=== PATIENT | female | born 1990 | race African-American/Black ===

== ENCOUNTER 2016-04-11 08:46 | Observation (INO) | payer OTHER ==
--- NOTE | 2016-04-11 09:19 | PDOC ---
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 She reports swelling and fluid overloading, and she is having difficulty walking and has not been drinking much secondary to the fluid retention. She reports that 2.7 liters of fluid were taken off yesterday after dialysis, but she is now 7 kilograms over. She reports she could not obtain an extra session of dialysis today. She also states she feels like she cant catch her breath. The patient denies chest pain, headache and dizziness. The patient denies fever , chills, nausea, vomit, diarrhea and constipation. The patient denies dysuria, frequency, urgency and hematuria. Allergies: No known drug allergies Past surgical history: Myxoma removal, surgical repair of ulcer to left foot Social history: Denies smoking, ETOH, or recreational drug use. 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 <Lizett Short - Last Filed: 04/11/16 10:24> - General History Source: Patient Exam Limitations: No Limitations <Becky Alba - Last Filed: 04/14/16 09:49> - General Chief Complaint: Edema Stated Complaint: BODY ACHES, SOB/EDEMA/ESRD Time Seen by Provider: 04/11/16 09:18 Past History <Lizett Short - Last Filed: 04/11/16 10:24> - Past Medical History Anemia: Yes Diabetes: Yes Dialysis: Yes (M/W/F) Disorders: Yes (ESRD) HTN: Yes Kidney Stones: (ESRD, Dialysis Mon, W, F, Left arm Fistula) Suicide Attempt (Hx): No Seizures: Yes - Surgical History Cardiac Surgery: Yes (mixoma removed) - Immunization History Immunization Up to Date: Yes - Psycho/Social/Smoking Cessation Hx Anxiety: No Suicidal Ideation: No Smoking Status: No Smoking History: Never smoked Have you smoked in the past 12 months: No Number of Cigarettes Smoked Daily: 10 Information on smoking cessation initiated: No Hx Alcohol Use: No Drug/Substance Use Hx: No Substance Use Type: None Hx Substance Use Treatment: No <ParthBecky - Last Filed: 04/14/16 09:49> - Past Medical History Allergies/Adverse Reactions: Allergies Allergy/AdvReac Type Severity Reaction Status Date / Time No Known Drug Allergies Allergy Verified 04/11/16 08:52 Home Medications: Ambulatory Orders Diphenhydramine [Benadryl Capsule -] 50 mg PO HS 09/22/15 Sevelamer Carbonate [Renvela -] 800 mg PO TID 09/22/15 Oxycodone HCl/Acetaminophen [Percocet 5-325 mg Tablet] 1 tab PO Q6H PRN #10 tablet MDD 4 11/11/15 Amlodipine Besylate [Norvasc -] 10 mg PO DAILY 01/23/16 Clonidine HCl [Catapres -] 0.4 mg PO TID 02/29/16 Gabapentin 100 mg PO TID 03/11/16 Metoprolol Tartrate [Lopressor] 100 mg PO BID 03/21/16 Insulin Aspart [Novolog Flexpen] 3 unit SQ TID #10 ml 03/26/16 Insulin Detemir [Levemir Flextouch] 15 unit SQ AM #10 ml 03/26/16 Nystatin Powder [Nystop Powder -] 1 applic TP BID #1 applic 03/26/16 Vancomycin/0.9 % Sod Chloride [Vanco-0.9% NaCl 750 mg/250 ml] 750 mg IVPB MOWEFR 03/31/16 Review of Systems - Review of Systems Able to Perform ROS?: Yes Comments:: 04/11/16 10:28 GENERAL/CONSTITUTIONAL: No: fever, chills, weakness, loss of appetite. HEAD, EYES, EARS, NOSE AND THROAT: No: change in vision, ear pain, discharge, sore throat, throat swelling. CARDIOVASCULAR: No: chest pain, lightheadedness, palpitations, syncope RESPIRATORY: Present: (+) shortness of breath No: cough, wheezing, hemoptysis, stridor. GASTROINTESTINAL: No: nausea, vomiting, abdominal cramping, diarrhea, rectal bleeding, constipation. GENITOURINARY: No: dysuria, hematuria, frequency, urgency, flank pain. MUSCULOSKELETAL: Present: (+) swelling, (+) body ache No: back pain, neck pain, joint pain SKIN AND BREASTS: No: lesions, pallor, rash or easy bruising. NEUROLOGIC: No: headache, vertigo, paresthesias, weakness ENDOCRINE: No: unexplained weight gain or loss HEMATOLOGIC/LYMPHATIC: No: anemia, easy bleeding, swelling nodes <Lizett Short - Last Filed: 04/11/16 10:24> *Physical Exam - Vital Signs Last Vital Signs Temp Pulse Resp BP Pulse Ox 97.7 F 78 20 217/122 100 04/11/16 08:50 04/11/16 10:05 04/11/16 10:05 04/11/16 10:05 04/11/16 10:05 - Physical Exam Comments: 04/11/16 10:28 GENERAL: The patient is in no acute distress. HEAD: Normal with no signs of trauma. EYES: PERRLA, EOMI, sclera anicteric, conjunctiva clear. ENT: Ears normal, nares patent, oropharynx clear without exudates. Moist mucous membranes. NECK: Normal range of motion, supple without lymphadenopathy, JVD, or masses. LUNGS: Breath sounds equal, clear to auscultation bilaterally. No wheezes, and no crackles. HEART:Regular rate and rhythm, normal S1 and S2 without murmur, rub or gallop. ABDOMEN: Soft, nontender, normoactive bowel sounds. No guarding, no rebound. EXTREMITIES: (+) Pitting edema of the bilateral lower extremities to the knees. Normal range of motion. No clubbing or cyanosis. No erythema, or tenderness. NEUROLOGICAL: Cranial nerves II through XII grossly intact. Normal speech. No focal neurological deficits. MUSCULOSKELETAL: Back non-tender to palpation, no CVA tenderness SKIN: (+) Left upper extremity fistula with positive thrill, positive bruits. Warm, Dry, normal turgor, no rashes noted. <Lizett Short - Last Filed: 04/11/16 10:24> - Vital Signs Last Vital Signs Temp Pulse Resp BP Pulse Ox 97.7 F 77 18 207/119 95 04/11/16 08:50 04/11/16 08:50 04/11/16 08:50 04/11/16 08:50 04/11/16 08:50 <Becky Alba - Last Filed: 04/14/16 09:49> Heart Score/ECG Review #1 ECG reviewed & interpreted by me at: 12:39 04/11/16 12:39 Twelve-lead EKG was performed and reviewed by me. There is normal sinus rhythm with a normal rate of 79 bpm. The axis is normal. The intervals are normal - pr: 192ms, QRS:74ms, QTc:444ms. There are no ST elevations or depressions. no peaked T waves. <Becky Alba - Last Filed: 04/14/16 09:49> ED Treatment Course - LABORATORY CBC & Chemistry Diagram: 04/11/16 09:31 04/11/16 09:31 - ADDITIONAL ORDERS Additional order review: 04/11/16 09:31 RBC 3.41 L MCV 81.0 MCHC 28.9 L RDW 19.6 H MPV 9.1 Neutrophils % 73.0 Lymphocytes % 14.6 Monocytes % 9.7 Eosinophils % 2.0 Basophils % 0.7 <Lizett Short - Last Filed: 04/11/16 10:24> - LABORATORY CBC & Chemistry Diagram: 04/11/16 09:31 04/11/16 14:10 <Becky Alba - Last Filed: 04/14/16 09:49> Medical Decision Making - Medical Decision Making 04/11/16 09:18 A portion of this note was documented by scribe services under my direction. I have reviewed the details of the note, within reason, and agree with the documentation with the following case summary and management plan written by me. Nursing documentation reviewed and incorporated into medical decision making 04/11/16 09:46 This is a 25 yo F with multiple medical problems presenting to the ER with a complaint of shortness of breath She typically is dialyzed M,W,F and does an extra session on Saturdays She is 7kg over her dry weight States she had a complete session yesterday, took off 2.7 L Despite this, she feels short of breath 04/11/16 09:53 Case reviewed with hospitalist Will place on observation Will send to Dailysis Pt BP elevated She did not take her medications this morning Will hold for now as she will be heading to dialysis now 04/11/16 10:53 pt sent to HD Received call re: pt blood sugar Already in dialysis Call placed to hospitalist re: blood sugar and need for treatment Of note, bloods drawn after pt began having breakfast Laboratory Tests 04/11/16 04/11/16 09:31 09:31 WBC 8.9 D Hgb 8.0 L Hct 27.6 L Plt Count 451 H D Sodium 129 L Potassium 4.7 D Chloride 94 L Carbon Dioxide 22 D BUN 40 H D Creatinine 5.1 H D Random Glucose 644 H* D <Becky Alba - Last Filed: 04/14/16 09:49> *DC/Admit/Observation/Transfer - Attestations Scribe Attestion: 04/11/16 10:29 Documentation prepared by Lizett Short, acting as medical recruiter for Becky Alba MD. <Lizett Short - Last Filed: 04/11/16 10:24> - Discharge Dispostion Admit: Yes <Becky Alba - Last Filed: 04/14/16 09:49> Diagnosis at time of Disposition: ESRD (end stage renal disease) on dialysis Fluid overload Qualifiers: Hypervolemia type: other Qualified Code(s): E87.79 - Other fluid overload - Discharge Dispostion Disposition: HOME Condition at time of disposition: Stable
[2016-04-11 09:54] LABS: BASOPHIL 0.7 % (0-2.0); MCH 23.4 pg (25.7-33.7); MCHC 28.9 g/dl (32.0-36.0); MEAN PLT VOLUME 9.1 fl (7.5-11.1); PLATELET COUNT 451 K/MM3 (134-434); RDW 19.6 % (11.6-15.6); WHITE BLOOD COUNT 8.9 K/mm3 (4.0-10.0)
[2016-04-11 10:05] LABS: ALBUMIN 3.1 g/dl (3.4-5.0); BILIRUBIN,TOTAL 0.4 mg/dL (0.2-1.0); CALCIUM 8.3 mg/dL (8.5-10.1); CREATININE 5.1 mg/dL (0.55-1.02); TOT PROT 8.6 g/dl (6.4-8.2)
--- NOTE | 2016-04-11 10:33 | EKG ---
Test Reason : Blood Pressure : / mmHG Vent. Rate : 079 BPM Atrial Rate : 079 BPM P-R Int : 192 ms QRS Dur : 074 ms QT Int : 388 ms P-R-T Axes : 018 -12 045 degrees QTc Int : 444 ms NORMAL SINUS RHYTHM POSSIBLE LEFT ATRIAL ENLARGEMENT ANTERIOR INFARCT (CITED ON OR BEFORE 11-MAR-2016) ABNORMAL ECG WHEN COMPARED WITH ECG OF 21-MAR-2016 06:30, NO SIGNIFICANT CHANGE WAS FOUND Confirmed by WESLEY SABILLON MD ([id number]) on 04/11/2016 10:33:22 AM Referred By: Confirmed By:WESLEY SABILLON MD
[2016-04-11] MEDS ORDERED: ALBUTEROL SO4 0.083% IH SOL 2.5 MG/3 ML VIAL.NEB. NEB PRN (10:39)
[2016-04-11] MEDS ORDERED: OXYCODONE/APAP 5/325MG COMBO TABLET PO PRN (10:56)
[2016-04-11] MEDS ORDERED: EPOETIN ALFA 10,000 UNIT/1 ML VIAL IVPUSH ONE (11:00)
--- NOTE | 2016-04-11 11:38 | HP ---
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 She reports swelling and fluid overloading, she is complaining of difficulty walking due to bipedal edema and shortness of breath. She reports being dialyzed yesterday where 2.7 liters of fluid were taken off, but still reports 7 kilograms above her baseline. The patient denies chest pain, headache and dizziness. The patient denies fever , chills, nausea, vomit, diarrhea and constipation. ER course was notable for: (1)elevated b/p 221/133 (2)elevated random serum glucose 644mg/dl Recent Travel: none PAST MEDICAL HISTORY: ESDR ( on dialysis M-W-F) HTN IDDM osteomyelitis DVT PE PAST SURGICAL HISTORY: myxoma removal right foot ulcer surgery ( 3 weeks ago for osteomyelitis) Social History: Smoking: denies Alcohol: denies Drugs: denies Family History: single, with no children Allergies: No Known Drug Allergies Allergy (Verified 04/11/16 08:52) HOME MEDICATIONS: Medication Instructions Recorded Diphenhydramine [Benadryl Capsule 50 mg PO 09/22/15 -] Sevelamer Carbonate [Renvela -] 800 mg PO TID 09/22/15 Oxycodone HCl/Acetaminophen 1 tab PO Q6H PRN #10 tablet MDD 4 11/11/15 [Percocet 5-325 mg Tablet] Amlodipine Besylate [Norvasc -] 10 mg PO DAILY@199901/23/16 Clonidine HCl [Catapres -] 0.4 mg PO TID 02/29/16 Gabapentin 100 mg PO TID 03/11/16 Metoprolol Tartrate [Lopressor] 100 mg PO BID 03/21/16 Insulin Aspart [Novolog] 3 unit SQ TID #10 ml 03/26/16 Insulin Detemir [Levemir Flextouch] 15 unit SQ AM #10 ml 03/26/16 Nystatin Powder [Nystop Powder -] 1 applic TP BID #1 applic 03/26/16 Pen Needle, Diabetic [Droplet Pen 1 each MC QID #120 dis.needle 03/26/16 Needle] Vancomycin/0.9 % Sod Chloride 750 mg PRN 03/31/16 [Vanco-0.9% NaCl 750 mg/250 ml] REVIEW OF SYSTEMS CONSTITUTIONAL: Absent: fever, chills, diaphoresis, generalized weakness, malaise, loss of appetite, weight gain of 7 kg HEENT: Absent: rhinorrhea, nasal congestion, throat pain, throat swelling, difficulty swallowing, mouth swelling, ear pain, eye pain, visual changes CARDIOVASCULAR: Absent: chest pain, syncope, palpitations, irregular heart rate, lightheadedness , bipedal pitting edema RESPIRATORY: Absent: cough, dyspnea with exertion, orthopnea, wheezing, stridor, hemoptysis , reports shortness of breath GASTROINTESTINAL: Absent: abdominal pain, abdominal distension, nausea, vomiting, diarrhea, constipation, melena, hematochezia GENITOURINARY: Absent: dysuria, frequency, urgency, hesitancy, hematuria, flank pain, genital pain MUSCULOSKELETAL: Absent: myalgia, arthralgia, joint swelling, back pain, neck pain SKIN: Absent: rash, itching, pallor HEMATOLOGIC/IMMUNOLOGIC: Absent: easy bleeding, easy bruising, lymphadenopathy, frequent infections ENDOCRINE: Absent: unexplained weight gain, unexplained weight loss, heat intolerance, cold intolerance NEUROLOGIC: Absent: headache, focal weakness or paresthesias, dizziness, unsteady gait, seizure, mental status changes, bladder or bowel incontinence PSYCHIATRIC: Absent: anxiety, depression, suicidal or homicidal ideation, hallucinations. PHYSICAL EXAMINATION Vital Signs - 24 hr 04/11/16 04/11/16 10:35 10:40 Temperature 98.4 F Pulse Rate 75 77 Respiratory 18 18 Rate Blood Pressure 221/132 213/133 GENERAL: Awake, alert, and fully oriented, in no acute distress. HEAD: Normal with no signs of trauma. EYES: Pupils equal, round and reactive to light, extraocular movements intact, sclera anicteric, conjunctiva clear. No lid lag. EARS, NOSE, THROAT: Ears normal, nares patent, oropharynx clear without exudates. Moist mucous membranes. NECK: Normal range of motion, supple without lymphadenopathy, JVD, or masses. LUNGS: Breath sounds equal, clear to auscultation bilaterally. No wheezes, and no crackles. No accessory muscle use. HEART: Regular rate and rhythm, normal S1 and S2 without murmur, rub or gallop. ABDOMEN: Soft, nontender, not distended, normoactive bowel sounds, no guarding, no rebound, no masses. No hepatomegaly or splenomegaly. +slightly distended, non tender MUSCULOSKELETAL: Normal range of motion at all joints. No bony deformities or tenderness. No CVA tenderness. UPPER EXTREMITIES: 2+ pulses, warm, well-perfused. No cyanosis. No clubbing. Cap refill <2 seconds. No peripheral edema LOWER EXTREMITIES: 2+ pulses, warm, well-perfused. No calf tenderness. +bipedal edema, pitting NEUROLOGICAL: Cranial nerves II-XII intact. Normal speech. Normal gait. PSYCHIATRIC: Cooperative. Good eye contact. Appropriate mood and affect. SKIN: Warm, dry, normal turgor, no rashes or lesions noted. ASSESSMENT/PLAN: The patient is a 25-year-old female, with a significant past medical history of ESRD (on dialysis MWF), hypertension, insulin-dependent diabetes, who presents to the emergency department with edema, and shortness of breath she has a 7 kg weight gain, although dialyzed yesterday. She is being admitted on observation for fluid overload and hyperglycemia. (1) ESRD/Fluid Overload -Consult with Dr. Susie Calero -dialysis today, tolerating well -continue on dialysis schedule of - (2) Hypertension -b/p monitoring, recheck after dialysis -continue on home medication, and low sodium diet (3) IDDM -BGM -levimir qam -novolog TID -ISS -F/u outpatient with associate professor of english Dr. Janay Boyer -monitor renal function -Hgba1c (4)DVT/PPI/Prophylasis -OOB as tolerated -PPI prn (5) FEN - PO Fluids -replete lytes as needed -Diabetic/Low sodium diet Problem List - Problem (1) Fluid overload Code(s): E87.70 - FLUID OVERLOAD, UNSPECIFIED Qualifiers: Hypervolemia type: other Qualified Code(s): E87.79 - Other fluid overload (2) Hyperglycemia due to type 1 diabetes mellitus Code(s): E10.65 - TYPE 1 DIABETES MELLITUS WITH HYPERGLYCEMIA (3) ESRD (end stage renal disease) on dialysis Code(s): N18.6 - END STAGE RENAL DISEASE Z99.2 - DEPENDENCE ON RENAL DIALYSIS (4) Diabetes mellitus, insulin dependent (IDDM), uncontrolled Code(s): E10.65 - TYPE 1 DIABETES MELLITUS WITH HYPERGLYCEMIA (5) HTN (hypertension) Code(s): I10 - ESSENTIAL (PRIMARY) HYPERTENSION Visit type - Emergency Visit Emergency Visit: Yes ED Registration Date: 04/11/16 Care time: The patient presented to the Emergency Department on the above date and was hospitalized for further evaluation of their emergent condition. - New Patient This patient is new to me today: Yes Date on this admission: 04/11/16 - Critical Care Critical Care patient: No
--- NOTE | 2016-04-11 11:39 | CONSULT ---
Consult Consult Specialty:: Nephrology ( Dr. Peter/ Dr. Vo) Reason for Consultation:: Patient came to the ER with massive fluid overload and Hyperglycemia. She has h/o ESRD, on Dialysis TIW at [facility]. extremely noncompliant with dialysis regimen, fluid restriction and Glycemic control. Dietary compliance very poor. Has DM1, on Insulin. 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 has h/o Seizures, DVT, LA myxoma. Comes frequently to the ER with massive fluid overload. 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 subclavian vein thromboses s/p dialysis catheters in the past) Renal/: Yes: Renal Failure, Hemodialysis ...LMP: 10/02/15 Heme/Onc: Yes: Anemia Infectious Disease: Yes: MRSA (history of bacteremia, recent mrsa foot abscess) Endocrine: Yes: Diabetes Mellitus (type 1 on insulin pump) Additional Medical History: DVT, PE on coumadin - Past Surgical History Past Surgical History: Yes: AV Fistula/Graft (Right arm) Additional Surgical History: Patient had h/o removal of atrial myxoma - Alcohol/Substance Use Hx Alcohol Use: No History of Substance Use: reports: None, Marijuana (used to smoke marijuana in the past, hasn't used in many years) - Smoking History Smoking history: Never smoked Have you smoked in the past 12 months: No Aproximately how many cigarettes per day: 10 - Social History Usual Living Arrangement: With Parent ADL: Independent Occupation: unemployed History of Recent Travel: No Home Medications - Allergies Allergies/Adverse Reactions: Allergies Allergy/AdvReac Type Severity Reaction Status Date / Time No Known Drug Allergies Allergy Verified 04/11/16 08:52 - Home Medications Home Medications: Ambulatory Orders Diphenhydramine [Benadryl Capsule -] 50 mg PO HS 09/22/15 Sevelamer Carbonate [Renvela -] 800 mg PO TID 09/22/15 Oxycodone HCl/Acetaminophen [Percocet 5-325 mg Tablet] 1 tab PO Q6H PRN #10 tablet MDD 4 11/11/15 Amlodipine Besylate [Norvasc -] 10 mg PO DAILY@199901/23/16 Clonidine HCl [Catapres -] 0.4 mg PO TID 02/29/16 Gabapentin 100 mg PO TID 03/11/16 Metoprolol Tartrate [Lopressor] 100 mg PO BID 03/21/16 Insulin Aspart [Novolog] 3 unit SQ TID #10 ml 03/26/16 Insulin Detemir [Levemir Flextouch] 15 unit SQ AM #10 ml 03/26/16 Nystatin Powder [Nystop Powder -] 1 applic TP BID #1 applic 03/26/16 Pen Needle, Diabetic [Droplet Pen Needle] 1 each MC QID #120 dis.needle Vancomycin/0.9 % Sod Chloride [Vanco-0.9% NaCl 750 mg/250 ml] 750 mg PRN Family Disease History - Family Disease History Family Disease History: Diabetes: Grandparent (HTN), Heart Disease: Grandparent , Other: Father (unknown), Mother (HTN) Review of Systems - Review of Systems Constitutional: reports: Weakness Neck: reports: No Symptoms Cardiovascular: reports: Shortness of Breath Respiratory: reports: Orthopnea, PND, SOB, SOB on Exertion Gastrointestinal: reports: No Symptoms Genitourinary: reports: No Symptoms, Other (Patient makes no urine) Neurological: reports: Numbness, Weakness Endocrine: reports: Increased Thirst Physical Exam Vital Signs: Vital Signs Temperature 98.4 F 04/11/16 10:35 Pulse Rate 77 04/11/16 10:40 Respiratory Rate 18 04/11/16 10:40 Blood Pressure 213/133 04/11/16 10:40 O2 Sat by Pulse Oximetry (%) 100 04/11/16 10:05 Constitutional: Yes: Well Nourished, Anxious HENT: Yes: WNL Neck: Yes: Supple Cardiovascular: Yes: Regular Rate and Rhythm, Murmur (Midsystolic murmur at apex ), S1, S2, S4 Respiratory: Yes: Diminished, Rales Gastrointestinal: Yes: Normal Bowel Sounds, Soft Renal/: Yes: Anuria (On HD) Edema: Yes Edema: LLE: 2+, RLE: 2+ Neurological: Yes: Alert, Oriented Psychiatric: Yes: Alert, Oriented Assessment/Plan 25 y/o female with ESRD, on HD. Admitted with severe shortness of breath, massive fluid overload and severe Hyperglycemia. The patient is extremely no-compliant with diet, fluid restriction and dialysis regimen. Patient started on HD with UF Tolerating well. Goal to remove 3-4 Kg today. Will need frequent dialysis to bring her down to EDW. Will need to have the Glycemic control optimized too before discharge. Thank you. Will follow with you. Susie Peter MD
[2016-04-11 13:16] LABS: ANISOCYTOSIS 1+; HYPOCHROMIA 1+; PLATELET COMMENT2 NO CLOTTING DETECTED; PLATELET ESTIMATE SLT INCREASED (NORMAL)
[2016-04-11] MEDS: INSULIN SLIDING SCALE (NOVOLOG) 1 VIAL SQ SCH ×4 (14:41→23:01)
[2016-04-11 15:14] VITALS: BMI 23.2
[2016-04-11 15:30] LABS: CALCIUM 8.3 mg/dL (8.5-10.1); CREATININE 3.8 mg/dL (0.55-1.02)
[2016-04-11] MEDS: SEVELAMER CARBONATE 800 MG TAB (FP) PO SCH ×3 (15:43→22:58)
[2016-04-11] MEDS ORDERED: INSULIN (NOVOLOG) ASPART 100 UNITS/ML 10ML VIAL ONE (15:51)
[2016-04-11] MEDS: INSULIN ASPART 3 UNIT SQ SCH ×2 (15:54→23:00)
[2016-04-11] MEDS ORDERED: METOPROLOL TARTRATE 50 MG TABLET (FP) ONE (15:56)
[2016-04-11] MEDS: cloNIDine HCL 0.1 MG TABLET PO SCH ×2 (15:58→22:57)
[2016-04-11] MEDS: GABAPENTIN 100 MG CAPSULE (FP) PO SCH ×2 (15:59→22:58)
[2016-04-11] MEDS: oxyCODONE HCL 5 MG TABLET PO PRN (18:19)
[2016-04-11] MEDS: ACETAMINOPHEN 325 MG TABLET (FP) PO PRN (18:19)
[2016-04-11] MEDS ORDERED: amLODIPine BESYLATE 5 MG TABLET (FP) PO SCH (20:00)
[2016-04-11] MEDS ORDERED: diphenhydrAMINE HCL 25 MG CAPSULE (FP) PO ONE ×2 (21:31→22:52)
[2016-04-11] MEDS ORDERED: PATIENT'S OWN MEDICATION (NON-FORMULARY) (Metoprolol Tartrate [Lopressor] 100 MG) PO SCH (22:00)
[2016-04-11] MEDS ORDERED: diphenhydrAMINE HCL 50 MG CAPSULE PO SCH (22:00)
[2016-04-11] MEDS: METOPROLOL TARTRATE 50 MG TABLET (FP) PO SCH (22:57)
[2016-04-11] MEDS: INSULIN DETEMIR 100 UNITS/ML MDV SQ SCH (23:00)
[2016-04-12] MEDS: oxyCODONE HCL 5 MG TABLET PO PRN ×2 (01:47→12:23)
[2016-04-12] MEDS: ACETAMINOPHEN 325 MG TABLET (FP) PO PRN ×2 (01:49→12:22)
[2016-04-12] MEDS: GABAPENTIN 100 MG CAPSULE (FP) PO SCH ×2 (05:38→14:01)
[2016-04-12] MEDS: cloNIDine HCL 0.1 MG TABLET PO SCH ×2 (05:38→14:01)
[2016-04-12] MEDS: SEVELAMER CARBONATE 800 MG TAB (FP) PO SCH ×2 (05:39→14:01)
[2016-04-12] MEDS: INSULIN ASPART 3 UNIT SQ SCH ×2 (06:11→14:01)
[2016-04-12] MEDS: INSULIN DETEMIR 100 UNITS/ML MDV SQ SCH (06:12)
[2016-04-12] MEDS: INSULIN SLIDING SCALE (NOVOLOG) 1 VIAL SQ SCH ×2 (06:12→12:14)
[2016-04-12] MEDS ORDERED: PATIENT'S OWN MEDICATION (NON-FORMULARY) (Insulin Detemir [Levemir Flextouch] 15 UNIT) SQ SCH (07:00)
[2016-04-12] MEDS ORDERED: PT OWN MED DRAWER 7, Y5N ONE (07:58)
--- NOTE | 2016-04-12 10:09 | DS ---
Physical Exam: SUBJECTIVE: Patient seen and examined OBJECTIVE: Vital Signs Period Temp Pulse Resp BP Sys/Ames Pulse Ox Last 24 Hr 79 F-98.5 F 20-82 16-83 151-221/95-133 94-97 PHYSICAL EXAM GENERAL: The patient is awake, alert, and fully oriented, in no acute distress. HEAD: Normal with no signs of trauma. EYES: PERRL, extraocular movements intact, sclera anicteric, conjunctiva clear. ENT: Ears normal, nares patent, oropharynx clear without exudates, moist mucous membranes. NECK: Trachea midline, full range of motion, supple. LUNGS: Breath sounds equal, clear to auscultation bilaterally, no wheezes, no crackles, no accessory muscle use. HEART: Regular rate and rhythm, S1, S2 without murmur, rub or gallop. ABDOMEN: Soft, nontender, nondistended, normoactive bowel sounds, no guarding, no rebound, no hepatosplenomegaly, no masses. EXTREMITIES: 2+ pulses, warm, well-perfused, no edema. NEUROLOGICAL: Cranial nerves II through XII grossly intact. Normal speech, gait not observed. PSYCH: Normal mood, normal affect. SKIN: Warm, dry, normal turgor, no rashes or lesions noted. LABS Laboratory Results - last 24 hr 04/11/16 04/11/16 04/11/16 12:19 14:10 18:11 Sodium 134 L Potassium 4.0 Chloride 96 L Carbon Dioxide 27 D Anion Gap 11 BUN 30 H D Creatinine 3.8 H D POC Glucometer 236 Random Glucose 490 H* D Hemoglobin A1c % 12.7 H D Calcium 8.3 L 04/11/16 04/12/16 22:49 06:10 Sodium Potassium Chloride Carbon Dioxide Anion Gap BUN Creatinine POC Glucometer 241 163 Random Glucose Hemoglobin A1c % Calcium HOSPITAL COURSE: Date of Admission:04/11/16 Date of Discharge: 04/12/16 Minutes to complete discharge: 45 Discharge Summary Reason For Visit: ESRD FLUID OVERLOAD Current Active Problems Fluid overload (Acute) Hyperglycemia due to type 1 diabetes mellitus (Acute) Leukocytosis (Acute) ESRD (end stage renal disease) on dialysis (Chronic) Hospital Course: 23 year old woman with HTN, DM, ESRD on HD MWF, PE/DVT who presented to the ED complaining of swelling of her legs and difficulty breathing. She stated that she did not miss any of her dialysis sessions but feels that she need and extra session right now. Pt was admitted to the hospital for fluid overload. Pt was seen by her button pusher and had 2 sessions of dialysis. On day of discharge pt stated that her breathing was back to baseline, and she had absolutely clear lungs on exam. Pt will be discharged home and will cont dialysis as already scheduled as an outpatient Condition: Stable - Instructions Referrals: Susie Peter MD [Staff Physician] - Disposition: HOME - Home Medications Comprehensive Discharge Medication List: Ambulatory Orders Diphenhydramine [Benadryl Capsule -] 50 mg PO HS 09/22/15 Sevelamer Carbonate [Renvela -] 800 mg PO TID 09/22/15 Oxycodone HCl/Acetaminophen [Percocet 5-325 mg Tablet] 1 tab PO Q6H PRN #10 tablet MDD 4 11/11/15 Amlodipine Besylate [Norvasc -] 10 mg PO DAILY 01/23/16 Clonidine HCl [Catapres -] 0.4 mg PO TID 02/29/16 Gabapentin 100 mg PO TID 03/11/16 Metoprolol Tartrate [Lopressor] 100 mg PO BID 03/21/16 Insulin Aspart [Novolog Flexpen] 3 unit SQ TID #10 ml 03/26/16 Insulin Detemir [Levemir Flextouch] 15 unit SQ AM #10 ml 03/26/16 Nystatin Powder [Nystop Powder -] 1 applic TP BID #1 applic 03/26/16 Vancomycin/0.9 % Sod Chloride [Vanco-0.9% NaCl 750 mg/250 ml] 750 mg IVPB MOWEFR 03/31/16 This patient is new to me today: Yes Date on this admission: 04/12/16 Emergency Visit: Yes ED Registration Date: 04/11/16 Care time: The patient presented to the Emergency Department on the above date and was hospitalized for further evaluation of their emergent condition. Critical Care patient: No - Discharge Referral Referred to [facility] Med [facility] No
--- NOTE | 2016-04-12 11:18 | PN ---
Progress Note, Physician Chief Complaint: Patient feeling better. had removal of about 5 Kg by UF on dialysis yesterday. Hemodialysis again today to remove more fluids. Blood Glucose has improved. - Current Medication List Current Medications: Active Medications Acetaminophen (Tylenol -) 325 mg PO Q6H PRN PRN Reason: PAIN 6-10 Last Admin: 04/12/16 01:49 Dose: 325 mg Albuterol Sulfate (Ventolin 0.083% Nebulizer Soln -) 1 amp NEB Q4H PRN PRN Reason: SHORT OF BREATH/WHEEZING Amlodipine Besylate (Norvasc -) 10 mg PO DAILY@1999 [facility] Last Admin: 04/11/16 20:14 Dose: 10 mg Clonidine (Catapres -) 0.4 mg PO TID [facility] Last Admin: 04/12/16 05:38 Dose: 0.4 mg Diphenhydramine HCl (Benadryl -) 50 mg PO HS [facility] Last Admin: 04/11/16 22:57 Dose: 50 mg Gabapentin (Neurontin -) 100 mg PO TID [facility] Last Admin: 04/12/16 05:38 Dose: 100 mg Insulin Aspart (Novolog Vial Sliding Scale -) 0 vial SQ [facility] PRN Reason: Protocol Last Admin: 04/12/16 06:12 Dose: Not Given Insulin Detemir (Levemir Vial) 8 units SQ BID@0700,2200 [facility] Last Admin: 04/12/16 06:12 Dose: 8 units Metoprolol Tartrate (Lopressor -) 100 mg PO BID [facility] Last Admin: 04/11/16 22:57 Dose: 100 mg Non-Formulary Medication (Insulin Aspart [Novolog Flexpen]) 3 unit SQ TID [facility] Last Admin: 04/12/16 06:11 Dose: 3 unit Oxycodone HCl (Roxicodone -) 5 mg PO Q6H PRN PRN Reason: PAIN 6-10 Last Admin: 04/12/16 01:47 Dose: 5 mg Sevelamer Carbonate (Renvela -) 800 mg PO TID [facility] Last Admin: 04/12/16 05:39 Dose: 800 mg - Objective Vital Signs: Vital Signs Temperature 97.8 F 04/12/16 08:05 Pulse Rate 80 04/12/16 10:40 Respiratory Rate 18 04/12/16 10:40 Blood Pressure 171/111 04/12/16 10:40 O2 Sat by Pulse Oximetry (%) 94 L 04/12/16 02:00 Constitutional: Yes: Well Nourished, No Distress Eyes: Yes: WNL, Conjunctiva Clear HENT: Yes: WNL, Atraumatic, Normocephalic Neck: Yes: WNL, Supple, Trachea Midline Cardiovascular: Yes: WNL, Regular Rate and Rhythm, Murmur Respiratory: Yes: WNL, Regular, CTA Bilaterally Gastrointestinal: Yes: WNL, Normal Bowel Sounds Edema: Yes Edema: LLE: 2+, RLE: 2+ Labs: CBC, BMP 04/11/16 14:10 Problem List - Problems (1) Fluid overload Code(s): E87.70 - FLUID OVERLOAD, UNSPECIFIED Qualifiers: Hypervolemia type: other Qualified Code(s): E87.79 - Other fluid overload (2) Hyperglycemia due to type 1 diabetes mellitus Code(s): E10.65 - TYPE 1 DIABETES MELLITUS WITH HYPERGLYCEMIA (3) Leukocytosis Code(s): D72.829 - ELEVATED WHITE BLOOD CELL COUNT, UNSPECIFIED (4) ESRD (end stage renal disease) on dialysis Code(s): N18.6 - END STAGE RENAL DISEASE Z99.2 - DEPENDENCE ON RENAL DIALYSIS (5) Diabetes mellitus, insulin dependent (IDDM), uncontrolled Code(s): E10.65 - TYPE 1 DIABETES MELLITUS WITH HYPERGLYCEMIA (6) Diabetic foot infection Code(s): E11.69 - TYPE 2 DIABETES MELLITUS WITH OTHER SPECIFIED COMPLICATION L08.9 - LOCAL INFECTION OF THE SKIN AND SUBCUTANEOUS TISSUE, UNSP (7) Diabetic foot ulcer Code(s): E11.621 - TYPE 2 DIABETES MELLITUS WITH FOOT ULCER L97.509 - NON-PRESSURE CHRONIC ULCER OTH PRT UNSP FOOT W UNSP SEVERITY Qualifiers: Diabetes mellitus type: type 1 Laterality: right Qualified Code(s) : E10.621 - Type 1 diabetes mellitus with foot ulcer; L97.519 - Non-pressure chronic ulcer of other part of right foot with unspecified severity (8) HTN (hypertension) Code(s): I10 - ESSENTIAL (PRIMARY) HYPERTENSION (9) Hyperkalemia Code(s): E87.5 - HYPERKALEMIA Assessment/Plan 25 y/o female with ESRD, on HD. Admitted with severe shortness of breath, massive fluid overload and severe Hyperglycemia. The patient is extremely no-compliant with diet, fluid restriction and dialysis regimen. Clinical status improving. Glycemic control better. Tolerating well. Goal to remove 4 Kg today. BP slowly improving with Ultrafiltration. If stable, she can be discharged and be followed as outpatient in the HD[facility]ty[facility] unit. Thank you. Will follow with you. Susie Peter MD
[2016-04-12] MEDS: METOPROLOL TARTRATE 50 MG TABLET (FP) PO SCH (12:23)
[2016-04-12] MEDS ORDERED: INSULIN (NOVOLOG) ASPART 100 UNITS/ML 10ML VIAL ONE (13:56)
[2016-04-12] MEDS ORDERED: amLODIPine BESYLATE 10 MG TABLET (FP) PO STA (15:32)
[2016-04-12 16:48] VITALS: BP 164/108; PULSE 84
[2016-04-12 17:13] VITALS: TEMP 98.6
== END 2016-04-12 17:08 | disposition home or self-care (01) ==
LOC: JER 08:46 → JERBED 10:09 → J8W 14:43
PROVIDERS: ADMIT Internal Medicine; ATTEND Internal Medicine
PROC: 5A1D60Z (ICD-10-PCS; principal; 2016-04-11)
DX: E87.70 Fluid overload, unspecified (principal); I12.0 Hypertensive chronic kidney disease with stage 5 chronic kidney disease or end stage renal disease; N18.6 End stage renal disease; Z99.2 Dependence on renal dialysis; D72.829 Elevated white blood cell count, unspecified; Z79.4 Long term (current) use of insulin; E10.621 Type 1 diabetes mellitus with foot ulcer; L97.519 Non-pressure chronic ulcer of other part of right foot with unspecified severity; E87.5 Hyperkalemia
CPT/HCPCS: 36415; 80048; 80053; 83036; 84703; 85025; 93005; 93010; 99285-25; G0277; G0378; J0885

== ENCOUNTER 2016-04-22 19:56 | Emergency (ER) | payer OTHER ==
[2016-04-22 20:13] VITALS: BMI 21.3
--- NOTE | 2016-04-22 20:13 | PDOC ---
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 Patient was seen in the ER on 04/11 for shortness of breath and leg swelling, when she was admitted for observation for fluid overload and hyperglycemia. Patient was treated and discharged on 04/12. She returns today for similar complaints. Patient denies fever, chills, diaphoresis, chest pain, shoulder pain, arm pain, and jaw pain. She states she was dialyzed today. Patient also has complaints of abdominal pain , nausea, and headache. She denies vomiting and diarrhea. Patient denies lightheadedness and dizziness. Allergies: NKDA Social History: No alcohol, tobacco, or drug use reported. Past Surgical History: myxoma removed 2013, right foot ulcer surgery ( 4 weeks ago for osteomyelitis) PCP/Dental Claims Processor: Dr. Nathan Vo <Robina Cervantes - Last Filed: 04/22/16 21:50> - General History Source: Patient <Francisco Nur - Last Filed: 04/23/16 00:32> - General Chief Complaint: Chest Pain Stated Complaint: CHEST DISCOMFORT Time Seen by Provider: 04/22/16 20:10 Past History <Robina Cervantes - Last Filed: 04/22/16 21:50> - Past Medical History Anemia: Yes Diabetes: Yes (15 yrs Insulin dependent) Dialysis: Yes (M/W/F) Disorders: Yes (ESRD for 6 yrs) HTN: Yes Kidney Stones: (ESRD, Dialysis Mon, W, F, Left arm Fistula) Suicide Attempt (Hx): No Seizures: Yes (Several yrs ago, no medication) - Surgical History Cardiac Surgery: Yes (myxoma removed 2013) - Immunization History Immunization Up to Date: Yes - Psycho/Social/Smoking Cessation Hx Anxiety: No Suicidal Ideation: No Smoking Status: No Smoking History: Never smoked Have you smoked in the past 12 months: No Number of Cigarettes Smoked Daily: 10 Hx Alcohol Use: No Drug/Substance Use Hx: No Substance Use Type: None Hx Substance Use Treatment: No <Francisco Nur - Last Filed: 04/23/16 00:32> - Past Medical History Allergies/Adverse Reactions: Allergies Allergy/AdvReac Type Severity Reaction Status Date / Time No Known Drug Allergies Allergy Verified 04/22/16 20:24 Home Medications: Ambulatory Orders Sevelamer Carbonate [Renvela -] 800 mg PO TID 09/22/15 Oxycodone HCl/Acetaminophen [Percocet 5-325 mg Tablet] 1 tab PO Q6H PRN #10 tablet MDD 4 11/11/15 Amlodipine Besylate [Norvasc -] 10 mg PO DAILY 01/23/16 Clonidine HCl [Catapres -] 0.4 mg PO TID 02/29/16 Gabapentin 100 mg PO TID 03/11/16 Metoprolol Tartrate [Lopressor] 100 mg PO BID 03/21/16 Insulin Aspart [Novolog Flexpen] 3 unit SQ TID #10 ml 03/26/16 Insulin Detemir [Levemir Flextouch] 15 unit SQ AM #10 ml 03/26/16 Review of Systems - Review of Systems Able to Perform ROS?: Yes Comments:: 04/22/16 21:02 CONSTITUTIONAL: Absent: fever, chills, diaphoresis, generalized weakness, malaise, loss of appetite HEENT: Absent: rhinorrhea, nasal congestion, throat pain, throat swelling, difficulty swallowing, mouth swelling, ear pain, eye pain, visual Changes CARDIOVASCULAR: +leg swelling Absent: chest pain, syncope, palpitations, irregular heart rate, lightheadedness RESPIRATORY: +SOB Absent: cough, dyspnea with exertion, orthopnea, wheezing, stridor, hemoptysis GASTROINTESTINAL: +abdominal pain, nausea Absent: abdominal distension, vomiting, diarrhea, constipation, melena, hematochezia GENITOURINARY: Absent: dysuria, frequency, urgency, hesitancy, hematuria, flank pain, genital pain MUSCULOSKELETAL: Absent: myalgia, arthralgia, joint swelling SKIN: Absent: rash, itching, pallor ENDOCRINE: Absent: unexplained weight gain, unexplained weight loss, heat intolerance, cold intolerance NEUROLOGIC: +headache Absent: focal weakness or paresthesias, dizziness, unsteady gait, seizure, mental status changes, bladder or bowel incontinence <HelenJuniRobina - Last Filed: 04/22/16 21:50> *Physical Exam - Vital Signs Last Vital Signs Temp Pulse Resp BP Pulse Ox 98 F 72 21 165/108 96 04/22/16 20:07 04/22/16 20:20 04/22/16 20:20 04/22/16 20:20 04/22/16 20:20 - Physical Exam Comments: 04/22/16 21:02 GENERAL: Well developed, well nourished. Alert yet occasionally somnolent. No acute distress. HEENT: Normocephalic, atraumatic. PERRLA, EOMI. No conjunctival pallor. Sclera are non- icteric. Moist mucous membranes. Oropharynx is clear. NECK: Supple. Full ROM. No JVD. Carotid pulses 2+ and symmetric, without bruits. No thyromegaly. No lymphadenopathy. CARDIOVASCULAR: Regular rate and rhythm. Holosystolic murmur. Distal pulses are 2+ and symmetric. PULMONARY: No evidence of respiratory distress. Scattered crackles diffusely. ABDOMINAL: Soft. Non-tender. Non-distended. No rebound or guarding. No organomegaly. Normoactive bowel sounds. MUSCULOSKELETAL Normal range of motion at all joints. No bony deformities or tenderness. No CVA tenderness. EXTREMITIES: No cyanosis. No clubbing. Pedal edema bilaterally. No calf tenderness. Left upper extremity fistula, positive bruit and thrill. SKIN: Warm and dry. Normal capillary refill. No rashes. No jaundice. NEUROLOGICAL: Alert yet occasionally somnolent. Answering questions slowly, but appropriately. Moving all extremities. No motor deficits. <HelenJuniRobina - Last Filed: 04/22/16 21:50> Heart Score/ECG Review - ECG Impressions Comment:: 04/22/16 21:51 NSR @72bpm Possible left atrial enlargement Possible anterior infarct, age undetermined Abnormal ECG <HelenRobina - Last Filed: 04/22/16 21:50> ED Treatment Course - LABORATORY CBC & Chemistry Diagram: 04/22/16 21:10 04/22/16 21:10 <Robina Cervantes - Last Filed: 04/22/16 21:50> - LABORATORY CBC & Chemistry Diagram: 04/22/16 21:10 04/22/16 21:10 <Francisco Nur - Last Filed: 04/23/16 00:32> Medical Decision Making - Medical Decision Making 04/23/16 00:31 Dr. Nur: The scribe's documentation has been prepared under my direction and personally reviewed by me in its entirery. I confirm that the note above accurately reflects all work, treatment, procedures, and medical decision making performed by me. Pt feels better. Will discharge. Pt advised to attend her regular dialysis session. <Francisco Nur - Last Filed: 04/23/16 00:32> *DC/Admit/Observation/Transfer - Attestations Scribe Attestion: 04/22/16 21:03 Documentation prepared by Robina Cervantes, acting as biomedical instrument technician for Francisco Nur MD. <Robina Cervantes - Last Filed: 04/22/16 21:50> - Discharge Dispostion Admit: No <Francisco Nur - Last Filed: 04/23/16 00:32> Diagnosis at time of Disposition: ESRD (end stage renal disease) on dialysis - Discharge Dispostion Disposition: HOME Condition at time of disposition: Stable - Patient Instructions Printed Discharge Instructions: Chronic Renal Failure
[2016-04-22] MEDS ORDERED: ASPIRIN 81 MG CHEWABLE TABLETS PO ONE (20:46)
[2016-04-22] MEDS ORDERED: ASPIRIN 81 MG CHEWABLE TABLETS ONE (20:53)
[2016-04-22 21:18] LABS: EOSINOPHIL 3.2 % (0-4.5); MCH 23.5 pg (25.7-33.7); MCHC 30.7 g/dl (32.0-36.0); MEAN CELL VOLUME 76.6 fl (80-96); MEAN PLT VOLUME 8.7 fl (7.5-11.1); NEUTROPHILS 75.2 % (42.8-82.8); PLATELET COUNT 321 K/MM3 (134-434); RDW 20.4 % (11.6-15.6); WHITE BLOOD COUNT 6.5 K/mm3 (4.0-10.0)
[2016-04-22 21:52] LABS: ALBUMIN 3.5 g/dl (3.4-5.0); ANION GAP 12 (8-16); BILIRUBIN,TOTAL 0.4 mg/dL (0.2-1.0); CALCIUM 8.6 mg/dL (8.5-10.1); CO2 23 mmol/L (21-32); CREATININE 3.8 mg/dL (0.55-1.02); GLUCOSE,RANDOM 126 mg/dL (74-106); MAGNESIUM 1.9 mg/dL (1.8-2.4); SGOT/AST 13 U/L (15-37); SGPT/ALT 31 U/L (12-78); TOT PROT 8.8 g/dl (6.4-8.2)
[2016-04-22 22:04] LABS: TROPONIN I < 0.02 ng/ml (0.00-0.05)
[2016-04-22 22:07] LABS: ALK PHOS 1050 U/L (45-117)
[2016-04-22 22:17] VITALS: TEMP 98.3
[2016-04-22 22:17] LABS: INR 1.19 (0.82-1.09); PROTHROMBIN TIME (PATIENT) 13.1 SEC (9.98-11.88)
[2016-04-23] MEDS ORDERED: ACETAMINOPHEN 325 MG TABLET (FP) PO ONE (00:30)
[2016-04-23] MEDS ORDERED: ACETAMINOPHEN 325 MG TABLET (FP) ONE (00:31)
[2016-04-23 00:49] VITALS: BP 156/96; PULSE 71
--- NOTE | 2016-04-23 16:53 | EKG ---
Test Reason : Blood Pressure : / mmHG Vent. Rate : 072 BPM Atrial Rate : 072 BPM P-R Int : 188 ms QRS Dur : 084 ms QT Int : 392 ms P-R-T Axes : 018 -13 055 degrees QTc Int : 429 ms NORMAL SINUS RHYTHM POSSIBLE LEFT ATRIAL ENLARGEMENT POSSIBLE ANTERIOR INFARCT (CITED ON OR BEFORE 11-MAR-2016) ABNORMAL ECG WHEN COMPARED WITH ECG OF 11-APR-2016 09:50, NONSPECIFIC T WAVE ABNORMALITY NOW EVIDENT IN LATERAL LEADS Confirmed by WESLEY SABILLON MD ([id number]) on 04/23/2016 4:53:23 PM Referred By: Confirmed By:WESLEY SABILLON MD
== END 2016-04-23 00:49 | disposition home or self-care (01) ==
LOC: JER 19:56
DX: I12.0 Hypertensive chronic kidney disease with stage 5 chronic kidney disease or end stage renal disease (principal); N18.6 End stage renal disease; Z99.2 Dependence on renal dialysis; E11.9 Type 2 diabetes mellitus without complications; Z79.4 Long term (current) use of insulin; G40.909 Epilepsy, unspecified, not intractable, without status epilepticus; I82.409 Acute embolism and thrombosis of unspecified deep veins of unspecified lower extremity; I26.99 Other pulmonary embolism without acute cor pulmonale; Z79.01 Long term (current) use of anticoagulants; M60.9 Myositis, unspecified; M86.9 Osteomyelitis, unspecified; I74.9 Embolism and thrombosis of unspecified artery; L02.91 Cutaneous abscess, unspecified; D64.9 Anemia, unspecified
CPT/HCPCS: 36415; 70450-TC; 71010-TC; 80053; 82550; 83605; 83735; 83880; 84484; 84703; 85025; 85610; 87040; 93005; 93010; 99283-25

== ENCOUNTER 2016-05-01 06:16 | Inpatient (IN) | payer OTHER ==
[2016-05-01 06:33] VITALS: BMI 24.8
--- NOTE | 2016-05-01 07:19 | PDOC ---
[id number] No Limitations - History of Present Illness Initial Comments: 05/01/16 07:23 The patient is a 25-year-old woman with a significant past medical history of anemia, hypertension, deep venous thrombosis, pulmonary embolism (on Coumadin), insulin dependent diabetes mellitus, end stage renal disease (on hemodialysis MWF), myosistis, osteomylities (right fifth digit surgery) and seizure disorders who presents to the emergency department for further evaluation of shortness of breath. As per patient, she states that she is short of breath and attributes it to volume overloading. Patient states she has dialysis today and states that "they don't take out enough". She also reports she brought this to her dialysis doctor's attention for which she was informed that certain guidelines do not allow for them to remove certain amounts. Patient would like to be admitted to receive hemodialysis today. Allergies: None Known Past Surgical History: Myxoma removed. Right foot ulcer surgery. Social History: No tobacco, ETOH and recreational drug use. Smoking Pipe Maker: Dr. Corey Cassidy [phone] [employer]apons Sergeant: Dr. Nathan Vo [phone] <Mel Barber - Last Filed: 05/01/16 10:32> <Juana Urbina - Last Filed: 05/01/16 11:52> - General Chief Complaint: Shortness of Breath Stated Complaint: SOB Time Seen by Provider: 05/01/16 07:16 Past History <Mel Barber - Last Filed: 05/01/16 10:32> - Past Medical History Anemia: Yes Diabetes: Yes (15 yrs Insulin dependent) Dialysis: Yes (M/W/F) Disorders: Yes (ESRD for 6 yrs) HTN: Yes Kidney Stones: (ESRD, Dialysis Mon, W, F, Left arm Fistula) Suicide Attempt (Hx): No Seizures: Yes (Several yrs ago, no medication) - Surgical History Cardiac Surgery: Yes (myxoma removed 2013) - Immunization History Immunization Up to Date: Yes - Psycho/Social/Smoking Cessation Hx Anxiety: No Suicidal Ideation: No Smoking Status: No Smoking History: Never smoked Have you smoked in the past 12 months: No Number of Cigarettes Smoked Daily: 10 Hx Alcohol Use: No Drug/Substance Use Hx: No Substance Use Type: None Hx Substance Use Treatment: No <Juana Urbina - Last Filed: 05/01/16 11:52> - Past Medical History Allergies/Adverse Reactions: Allergies Allergy/AdvReac Type Severity Reaction Status Date / Time No Known Drug Allergies Allergy Verified 05/01/16 06:34 Home Medications: Ambulatory Orders Sevelamer Carbonate [Renvela -] 800 mg PO TID 09/22/15 Oxycodone HCl/Acetaminophen [Percocet 5-325 mg Tablet] 1 tab PO Q6H PRN #10 tablet MDD 4 11/11/15 Amlodipine Besylate [Norvasc -] 10 mg PO DAILY 01/23/16 Clonidine HCl [Catapres -] 0.4 mg PO TID 02/29/16 Gabapentin 100 mg PO TID 03/11/16 Metoprolol Tartrate [Lopressor] 100 mg PO BID 03/21/16 Insulin Aspart [Novolog Flexpen] 3 unit SQ TID #10 ml 03/26/16 Insulin Detemir [Levemir Flextouch] 15 unit SQ AM #10 ml 03/26/16 Review of Systems - Review of Systems Able to Perform ROS?: Yes Comments:: 05/01/16 07:35 GENERAL/CONSTITUTIONAL: No fever or chills. No weakness. CARDIOVASCULAR: Yes: +Shortness of breath. MUSCULOSKELETAL: No joint or muscle swelling or pain. No neck or back pain. <Mel Barber - Last Filed: 05/01/16 10:32> *Physical Exam - Vital Signs Last Vital Signs Temp Pulse Resp BP Pulse Ox 97.9 F 78 22 162/97 97 05/01/16 06:32 05/01/16 06:32 05/01/16 06:32 05/01/16 06:32 05/01/16 06:32 - Physical Exam Comments: 05/01/16 07:23 <Mel Barber - Last Filed: 05/01/16 10:32> - Vital Signs Last Vital Signs Temp Pulse Resp BP Pulse Ox 97.9 F 78 22 162/97 97 05/01/16 06:32 05/01/16 06:32 05/01/16 06:32 05/01/16 06:32 05/01/16 06:32 - Physical Exam Comments: GENERAL: Awake, alert, and fully oriented, in no acute distress HEAD: No signs of trauma EYES: PERRLA, EOMI, sclera anicteric, conjunctiva clear ENT: Auricles normal inspection, hearing grossly normal, nares patent, oropharynx clear without exudates. Moist mucosa NECK: Normal ROM, supple, no lymphadenopathy, JVD, or masses LUNGS: Breath sounds equal, +crackles at bases B/L. HEART: Regular rate and rhythm, normal S1 and S2, no murmurs, rubs or gallops ABDOMEN: Soft, nontender, normoactive bowel sounds. No guarding, no rebound. No masses EXTREMITIES: Normal range of motion, 2+ pitting edema to BLE. No clubbing or cyanosis. No cords, erythema. Refused examination of R foot wound. NEUROLOGICAL: Cranial nerves II through XII grossly intact. Normal speech, normal gait SKIN: Warm, Dry, normal turgor, no rashes or lesions noted. <Juana Urbina - Last Filed: 05/01/16 11:52> ED Treatment Course - LABORATORY CBC & Chemistry Diagram: 05/01/16 07:40 05/01/16 07:40 - RADIOLOGY Radiograph Interpretation: 05/01/16 10:32 EXAM: RAD/CHEST X-RAY PORTABLE IMPRESSION: Frontal view of the chest is provided. Prior study dated April 22 is available for comparison. Increased interstitial lung markings, prominence of the perihilar vasculature, and cardiomegaly are consistent with CHF. This is similar in appearance to prior study. Elevation of the right hemidiaphragm is noted. Clips overlie the right mediastinal region. Visualized bony structures appear intact. <Mel Barber - Last Filed: 05/01/16 10:32> - LABORATORY CBC & Chemistry Diagram: 05/01/16 07:40 05/01/16 07:40 <Juana Urbina - Last Filed: 05/01/16 11:52> Medical Decision Making - Medical Decision Making 05/01/16 09:01 Call placed to patient's [employer] Sergeant, Dr. Nathan Vo at [phone]. 05/01/16 09:05 Overhead page [employer] Sergeant, Dr. Nathan Vo. 05/01/16 09:06 Response by [employer] Sergeant, Dr. Nathan Vo. Case was discussed. <Mel Barber - Last Filed: 05/01/16 10:32> - Critical Care Time Total Critical Care Time (minutes): 35 Critical Care Statement: The care of this patient involved high complexity decision making to prevent further life threatening deterioration of the patient 's condition and/or to evalute & treat vital organ system(s) failure or risk of failure. - Medical Decision Making 05/01/16 09:12 Case d/w Dr. Vo. Patient is well-known to him. She has history of poorly controlled DM, ESRD on HD. Periodically becomes fluid overloaded and hyperglycemic, presents to hospital requiring extra fluid removal during dialysis. Will arrange for dialysis. 05/01/16 11:09 Acetone is trace positive. Will start insulin drip and admit to ICU. <Juana Urbina - Last Filed: 05/01/16 11:52> *DC/Admit/Observation/Transfer - Attestations Scribe Attestion: 05/01/16 07:23 Documentation prepared by Mel Barber, acting as medical policy specialist for Juana Urbina MD. <Mel Barber - Last Filed: 05/01/16 10:32> - Discharge Dispostion Admit: Yes <Juana Urbina - Last Filed: 05/01/16 11:52> Diagnosis at time of Disposition: Hyperglycemia due to type 1 diabetes mellitus, ESRD (end stage renal disease) on dialysis Fluid overload Qualifiers: Hypervolemia type: unspecified Qualified Code(s): E87.70 - Fluid overload, unspecified - Discharge Dispostion Condition at time of disposition: Guarded
[2016-05-01 07:47] LABS: BASOPHIL 0.9 % (0-2.0); EOSINOPHIL 1.9 % (0-4.5); MCH 24.4 pg (25.7-33.7); MCHC 29.8 g/dl (32.0-36.0); MEAN CELL VOLUME 81.8 fl (80-96); MEAN PLT VOLUME 9.3 fl (7.5-11.1); NEUTROPHILS 63.6 % (42.8-82.8); PLATELET COUNT 299 K/MM3 (134-434); RDW 21.1 % (11.6-15.6); WHITE BLOOD COUNT 6.2 K/mm3 (4.0-10.0)
[2016-05-01 08:33] LABS: ALBUMIN 3.3 g/dl (3.4-5.0); BILIRUBIN,TOTAL 0.4 mg/dL (0.2-1.0); CALCIUM 7.8 mg/dL (8.5-10.1); TOT PROT 7.8 g/dl (6.4-8.2)
[2016-05-01] MEDS ORDERED: INSULIN REGULAR HUMAN 100 UNITS/ML *VIAL SQ ONE (08:59)
[2016-05-01] MEDS ORDERED: INSULIN REGULAR HUMAN 100 UNITS/ML *VIAL ONE ×2 (09:14→11:22)
--- NOTE | 2016-05-01 11:07 | CONSULT ---
Consult - text type - Consultation Consultation Note: Renal Consult for ESRD on HD/Hyperkalemia/Volume Overload This is a 25 year old woman with PMhx of ESRD no HD (MWF), IDDM on insulin pump , Osteomylitis, Atrial thrombosis who presented to the ED with complains of sob and increasing leg swelling. Pt states that she is more then 10kg above her dry weight and has been unable to get her volume controlled with outpatient dialysis. Denies any chest pain, fever, chills, abd pain, N/V/D. Her blood glucose was found to be 700. She reports dietary indiscretion. No confusion, lethargy, weakness. last dialysis was wednesday w/o complication. Pt is currently on IV vanco with Hd for treatment of her osteomylitis PMhx: as above Allergies: NKDA Family hx: NC Social hx: No T/A/D ROS: as per HPI, all other pertinent ros negagtive Home Meds: Medication Instructions Recorded Sevelamer Carbonate [Renvela -] 800 mg PO TID 09/22/15 Oxycodone HCl/Acetaminophen 1 tab PO Q6H PRN #10 tablet MDD 4 11/11/15 [Percocet 5-325 mg Tablet] Amlodipine Besylate [Norvasc -] 10 mg PO DAILY 01/23/16 Clonidine HCl [Catapres -] 0.4 mg PO TID 02/29/16 Gabapentin 100 mg PO TID 03/11/16 Metoprolol Tartrate [Lopressor] 100 mg PO BID 03/21/16 Insulin Aspart [Novolog Flexpen] 3 unit SQ TID #10 ml 03/26/16 Insulin Detemir [Levemir Flextouch] 15 unit SQ AM #10 ml 03/26/16 Vital Signs Temperature 97.9 F 05/01/16 06:32 Pulse Rate 78 05/01/16 06:32 Respiratory Rate 22 05/01/16 06:32 Blood Pressure 162/97 05/01/16 06:32 O2 Sat by Pulse Oximetry (%) 97 05/01/16 06:32 Intake & Output 04/28/16 04/29/16 04/30/16 05/01/16 23:59 23:59 23:59 23:59 Weight 154 lb Gen: NAD, awake and alert HEENT: NC/AT, No JVD, Neck Supple CVS: RRR, No M/R Lungs: Dec BS at lung bases Abd: soft NT/ND Ext: >2+ edema in LE, no cyanosis of clubbing Neuro: AAOx3, no focal defects CBC, BMP 05/01/16 07:40 05/01/16 07:40 Current Medications Insulin Human Regular 100 (units/ Sodium Chloride) 100 mls @ 6.98 mls/hr IVPB TITR ROSA MARIA; 0.1 UNITS/KG/HR PRN Reason: Protocol A/P 25 year old woman with PMhx of ESRD no HD (MWF), IDDM on insulin pump, Osteomylitis, Atrial thrombosis who presented to the ED with complains of sob and increasing leg swelling. #ESRD on HD/Hyperkalemia/Volume Overload Will arrange for dialysis today in the ICU Goal UF is 3-3.5L over 4 hours Will use 2k bath to lower K Will likely need extra UF done tomorrow for management of volume renal diet with 2g Na restriction 1L fluid restriction daily dose all meds for intermittent HD #DKA/Hyperglycemia/IDDM For ICU monitoring Insulin gtt Endocrine eval as per PMD Monitor BMP/Anion gap #CKD related Anemia Continue Epogen with HD #Pseudohyponatremia Corrected Na is 138 Thank you will follow Nathan Vo DO
[2016-05-01] MEDS ORDERED: INSULIN REGULAR 100 UNITS in SODIUM CHLORIDE 99 ML IVPB SCH ×2 (11:15→15:16)
--- NOTE | 2016-05-01 11:32 | EKG ---
Test Reason : Blood Pressure : / mmHG Vent. Rate : 076 BPM Atrial Rate : 076 BPM P-R Int : 192 ms QRS Dur : 082 ms QT Int : 396 ms P-R-T Axes : 022 -09 055 degrees QTc Int : 445 ms NORMAL SINUS RHYTHM ANTERIOR INFARCT (CITED ON OR BEFORE 11-MAR-2016) ABNORMAL ECG WHEN COMPARED WITH ECG OF 22-APR-2016 20:12, NO SIGNIFICANT CHANGE WAS FOUND Confirmed by FELICIA ZAIDI MD ([id number]) on 05/01/2016 11:32:34 AM Referred By: Confirmed By:FELICIA ZAIDI MD
[2016-05-01] MEDS ORDERED: VANCOMYCIN 1 GRAM (PRE-DOCKED) 250 ML IVPB ONE ×2 (12:14→13:15)
--- NOTE | 2016-05-01 12:39 | PN ---
Teaching Attending Note Name of Resident: Nurys Phoenix ATTENDING PHYSICIAN STATEMENT I saw and evaluated the patient. I reviewed the resident's note and discussed the case with the resident. I agree with the resident's findings and plan as documented. SUBJECTIVE: OBJECTIVE: ASSESSMENT AND PLAN: Problem List - Problems (1) Hyperglycemia due to type 1 diabetes mellitus Assessment/Plan: Pt seen and examined at bedside, chart, data reviewed. HPI 25yo AAF with uncontrolled IDDM with resultant ESRD, neuropathy, presented with SOB and decreased exercise tolerance for one day. She undergoes HD on Mon, wed, and fri, denies missing any HD sessions recently. HD center located in [place]. Pt admits to being noncompliant with diet and reports eating fast food and drinking soda. Recently started tx for right 5th toe OM. PMHx- uncontrolled HTN, uncontrolled DM, ESRD Social denies any toxic habits Allergies- NKDA Past medical History as above Hospitalzations- for DKA, OM of right 5th toe Surgeries LUE AVF General NAD, AAOx3, no respiratory distress HEENT- no sinus tenderness, Neck- supple, b/l JVD CV s1+S2+ RRR split 2nd heart sound Chest- CTA b/l Abdomen- obese, soft, NT, no masses palpated Ext- 1+ PE in lower ext, no clubbing noted, right foot bandaged ROS- denies an fevers, chills, diarrhea, nausea, vomiting, cough, loss of appetite, dysuria CXR- b/l pulmonary edema EKG - NSR, no T wave changes K- 6.0 AST 267 H D ALT 122 H D Alkaline Phosphatase 1180 H Trace ketones A/P #DKA likely 2/2 to diet and medication noncompliance- hyperglycemia and AG of 16 -admit to ICU -7 units regular insulin IV -insulin drip at 7 units/kg/hr -avoid excessive fluid due to clinical fluid overload -FS check q 1hr -adjust insulin drip as per FS and DKA protocol -recheck electrolytes including K, Phos, Mg and supplement as necessary -bridge insulin drip with long acting insulin once AG closes -if glucose <200mg /dl and AG is not closed, and 0.5NS/ D5W #Fluid overload from ESRD likely 2/2 to diet noncompliance vs underdialysis. -renal consult placed and conventions assistant senior consumer insights consultant aware for urgent HD -insulin drip to correct hyperkalemia -fluid restriction #Hyperkalemia likely 2/2 to kidney dysfunction from ESRD -insulin drip will correct hyperkalemia -cardiac monitoring #OM of right 5th toe -ID consult -continue to redose vancomycin Ig IVPB after each HD session -check trough prior to next HD session #-pseudohypoglycemia - 2/2 to hyperglycemia #HTN - uncontrolled, may be 2/2 to fluid overload resume home medications -amlodine 10mg daily -metoprolol 100mg bid -clonidine 0.4mg tid #Transamintiis - uncertain etiolgy -liver US -hepatitis panel DVT ppx -heparin sc 5000 units q 8hrs Diet- NPO for now -order diet once DKA resolves Code(s): E10.65 - TYPE 1 DIABETES MELLITUS WITH HYPERGLYCEMIA
[2016-05-01] MEDS ORDERED: INSULIN REGULAR 100 UNITS in SODIUM CHLORIDE 99 ML IVPB ONE (12:48)
--- NOTE | 2016-05-01 13:02 | HP ---
CHIEF COMPLAINT: PCP: Lawn Specialist: Dr. Nathan Vo [phone] Metallurgist Process: Dr. Corey Cassidy [phone] HISTORY OF PRESENT ILLNESS: This is a 25 yo F with a PMH of anemia, hypertension, PE 6 yrs ago s/p 6 mo course of coum, insulin dependent diabetes mellitus 1, end stage renal disease ( on hemodialysis MWF), myosistis, osteomylities (right fifth digit on daily vanco ) and seizure disorders who presents to the emergency department due to SOB. She states that she is sob due to volume overloading, her HD facility had a change of protocol and no longertakes off enough fluid per session, She is now over 10 lb over her dry weight. her sob has been going on for a few weeks and became wores over daniella last 2 days. She has orthopnea. Her last HD was on wed. She is medication noncompliant but does not adnere to a diabetic diet. Today she has some chest tightness but no h/a, nereida pain, n/v, abd pain, diarrhea, constipation or dysuria. she complains of polydipsia. she does not produce urine. ER course was notable for: (1) insulin drip, vanco (2) labs (3)cxr ekg Recent Travel: denies PAST MEDICAL HISTORY: as above PAST SURGICAL HISTORY: Myxoma removed. Right foot ulcer surgery. Social History: lives at home with mother Smoking: past but quit Alcohol:denies Drugs: denies Family History: HTN Allergies No Known Drug Allergies Allergy (Verified 05/01/16 06:34) HOME MEDICATIONS: Medication Instructions Recorded Sevelamer Carbonate [Renvela -] 800 mg PO TID 09/22/15 Oxycodone HCl/Acetaminophen 1 tab PO Q6H PRN #10 tablet MDD 4 11/11/15 [Percocet 5-325 mg Tablet] Amlodipine Besylate [Norvasc -] 10 mg PO DAILY 01/23/16 Clonidine HCl [Catapres -] 0.4 mg PO TID 02/29/16 Gabapentin 100 mg PO TID 03/11/16 Metoprolol Tartrate [Lopressor] 100 mg PO BID 03/21/16 Insulin Aspart [Novolog Flexpen] 3 unit SQ TID #10 ml 12/22/16 Insulin Detemir [Levemir Flextouch] 15 unit SQ AM #10 ml 03/26/16 REVIEW OF SYSTEMS CONSTITUTIONAL: Absent: fever, chills, diaphoresis, generalized weakness HEENT: Absent: rhinorrhea, nasal congestion, throat painvisual changes CARDIOVASCULAR: Absent: chest pain, syncope, palpitations, irregular heart rate, lightheadedness RESPIRATORY: Absent: cough, shortness of breath, dyspnea with exertion GASTROINTESTINAL: Absent: abdominal pain, abdominal distension, nausea, vomiting, diarrhea, constipation GENITOURINARY: Absent: no urine MUSCULOSKELETAL: Absent: myalgia, arthralgia SKIN: Absent: rash, itching, pallor HEMATOLOGIC/IMMUNOLOGIC: Absent: easy bleeding, easy bruising ENDOCRINE: Absent: heat intolerance, cold intolerance NEUROLOGIC: Absent: headache, focal weakness or paresthesias PSYCHIATRIC: Absent: anxiety, depression PHYSICAL EXAMINATION Vital Signs - 24 hr 05/01/16 12:47 Temperature 98.3 F Pulse Rate 74 Respiratory 22 Rate Blood Pressure 175/105 GENERAL: Awake, alert, and fully oriented, in no acute distress. HEAD: Normal with no signs of trauma. EYES: Pupils equal, round and reactive to light, extraocular movements intact, sclera anicteric, conjunctiva clear. No lid lag. EARS, NOSE, THROAT: Ears normal, nares patent, oropharynx clear without exudates. Moist mucous membranes. NECK: Normal range of motion, supple without lymphadenopathy, JVD, or masses. LUNGS: Breath sounds equal, clear to auscultation bilaterally. No wheezes, and no crackles. No accessory muscle use. HEART: Regular rate and rhythm, normal S1 and S2 without murmur, rub or gallop. ABDOMEN: Soft, nontender, not distended, normoactive bowel sounds, no guarding, no rebound, no masses. No hepatomegaly or splenomegaly. MUSCULOSKELETAL: Normal range of motion at all joints. No bony deformities or tenderness. No CVA tenderness. UPPER EXTREMITIES: 2+ pulses, warm, well-perfused. No cyanosis. No clubbing. Cap refill <2 seconds. No peripheral edema. LOWER EXTREMITIES: 2+ pulses, warm, well-perfused. No calf tenderness. No peripheral edema. NEUROLOGICAL: Cranial nerves II-XII intact. Normal speech. Normal gait. PSYCHIATRIC: Cooperative. Good eye contact. Appropriate mood and affect. SKIN: Warm, dry, normal turgor, no rashes or lesions noted. ASSESSMENT/PLAN: This is a 25 yo F with a PMH of anemia, hypertension, PE 6 yrs ago s/p 6 mo course of coum, insulin dependent diabetes mellitus 1, end stage renal disease ( on hemodialysis MWF), myosistis, osteomylities (right fifth digit on daily vanco ) and seizure disorders who presents to the emergency department due to SOB. She states that she is sob due to volume overloading. Found to be in dka DKA in setting of IDDM1 -medication compiant on pump at home -dient noncompliant -glucose admission 700, gap 16 -insulin drip -loading does 10 mg levemir when gap closes -consider starting ifv D5w when glucose 250 if dialysed -replete k when below 3.5 -feed when off drip -fingerstick q1h -ICU ESRD -DH MWF -volume overloaded >10kg over dry weight -Renal consulted -dialyze today remove 3.5 L over 4 hr -2K bath -may need UF tomorrow -renal diet -1L fluid restriction Diabetic R foot ulcer/osteomyelitis -vanco daily 1 gm after HD. -daily trough and dose adjustment -ID consult HTN -resume homemeds FEN 1L fluid restrict replete k when below 3.5 DVT Gi PPX: PPI, HEp, scd Dispo: ICU Problem List - Problem (1) Acute respiratory failure Code(s): J96.00 - ACUTE RESPIRATORY FAILURE, UNSP W HYPOXIA OR HYPERCAPNIA (2) Diabetic ketoacidosis with coma associated with type 1 diabetes mellitus Code(s): E10.11 - TYPE 1 DIABETES MELLITUS WITH KETOACIDOSIS WITH COMA (3) Fluid overload Code(s): E87.70 - FLUID OVERLOAD, UNSPECIFIED Qualifiers: Hypervolemia type: unspecified Qualified Code(s): E87.70 - Fluid overload, unspecified (4) History of pulmonary embolus (PE) Code(s): Z86.711 - PERSONAL HISTORY OF PULMONARY EMBOLISM (5) Hyperglycemia due to type 1 diabetes mellitus Code(s): E10.65 - TYPE 1 DIABETES MELLITUS WITH HYPERGLYCEMIA (6) Leukocytosis Code(s): D72.829 - ELEVATED WHITE BLOOD CELL COUNT, UNSPECIFIED (7) Osteomyelitis due to type 1 diabetes mellitus Code(s): E10.69 - TYPE 1 DIABETES MELLITUS WITH OTHER SPECIFIED COMPLICATION M86.9 - OSTEOMYELITIS, UNSPECIFIED (8) ESRD (end stage renal disease) on dialysis Code(s): N18.6 - END STAGE RENAL DISEASE Z99.2 - DEPENDENCE ON RENAL DIALYSIS (9) Diabetes mellitus, insulin dependent (IDDM), uncontrolled Code(s): E10.65 - TYPE 1 DIABETES MELLITUS WITH HYPERGLYCEMIA (10) Diabetic foot infection Code(s): E11.69 - TYPE 2 DIABETES MELLITUS WITH OTHER SPECIFIED COMPLICATION L08.9 - LOCAL INFECTION OF THE SKIN AND SUBCUTANEOUS TISSUE, UNSP (11) Diabetic foot ulcer Code(s): E11.621 - TYPE 2 DIABETES MELLITUS WITH FOOT ULCER L97.509 - NON-PRESSURE CHRONIC ULCER OTH PRT UNSP FOOT W UNSP SEVERITY Qualifiers: Diabetes mellitus type: type 1 Laterality: right Qualified Code(s) : E10.621 - Type 1 diabetes mellitus with foot ulcer; L97.519 - Non-pressure chronic ulcer of other part of right foot with unspecified severity (12) Open wound of foot Code(s): S91.309A - UNSPECIFIED OPEN WOUND, UNSPECIFIED FOOT, INITIAL ENCOUNTER (13) Osteomyelitis Code(s): M86.9 - OSTEOMYELITIS, UNSPECIFIED Qualifiers: Osteomyelitis location: foot Laterality: right Chronicity: acute Qualified Code(s): M86.171 - Other acute osteomyelitis, right ankle and foot (14) Dialysis patient Code(s): Z99.2 - DEPENDENCE ON RENAL DIALYSIS (15) HTN (hypertension) Code(s): I10 - ESSENTIAL (PRIMARY) HYPERTENSION (16) Hyperkalemia Code(s): E87.5 - HYPERKALEMIA Visit type - Emergency Visit Emergency Visit: Yes ED Registration Date: 05/01/16 Care time: The patient presented to the Emergency Department on the above date and was hospitalized for further evaluation of their emergent condition. - New Patient This patient is new to me today: Yes Date on this admission: 05/01/16 - Critical Care Critical Care patient: Yes Total Critical Care Time (in minutes): 35 Critical Care Statement: The care of this patient involved high complexity decision making to prevent further life threatening deterioration of the patient 's condition and/or to evalute & treat vital organ system(s) failure or risk of failure.
[2016-05-01] MEDS ORDERED: amLODIPine BESYLATE 10 MG TABLET (FP) PO ONE (13:07)
[2016-05-01 13:15] LABS: BASOPHIL 1.1 % (0-2.0); EOSINOPHIL 1.6 % (0-4.5); MCH 23.8 pg (25.7-33.7); MCHC 30.1 g/dl (32.0-36.0); MEAN CELL VOLUME 79.3 fl (80-96); MEAN PLT VOLUME 8.8 fl (7.5-11.1); NEUTROPHILS 66.6 % (42.8-82.8); PLATELET COUNT 284 K/MM3 (134-434); RDW 20.7 % (11.6-15.6); WHITE BLOOD COUNT 7.2 K/mm3 (4.0-10.0)
[2016-05-01] MEDS ORDERED: EPOETIN ALFA 10,000 UNIT/1 ML VIAL IVPUSH ONE (13:15)
[2016-05-01 13:44] LABS: CALCIUM 7.9 mg/dL (8.5-10.1); CREATININE 7.3 mg/dL (0.55-1.02); MAGNESIUM 2.1 mg/dL (1.8-2.4)
--- NOTE | 2016-05-01 14:07 | CONSULT ---
Consult Consult Specialty:: Pulm/CCM Referred by:: ED Reason for Consultation:: diabetic ketoacidosis - History of Present Illness Chief Complaint: worsening shortness of breath History of Present Illness: 25F PMHx of ESRD no HD (MWF), DM1 on insulin pump, Osteomylitis of right fifth toe, Atrial myxoma s/p resection who presented to the ED with complains of shortness of breath and increasing leg swelling. She states she has been having a large amount of fluid intake. She has been eating a lot of carbohydrates and drinking sugary drinks such as soda. She states she had not been compliant with her insulin or her diet. She was diagnosed with osteomyelitis of the left fifth toe a month ago and has been getting vancomycin in the last hour of every dialysis session. Patient had a debridement of the right fifth toe and is to get a total of 6 weeks of vancomycin. Denies any chest pain, fever, chills, abd pain, N/V/D. Her blood glucose was found to be 700 in the ED. Anion gap 16. denies confusion, lethargy, weakness. last dialysis was Wednesday. She denies missing any dialysis sessions. Admitted to ICU for management of DKA and insulin gtt. - History Source History Provided By: Patient, Medical Record Limitations to Obtaining History: No Limitations - Past Medical History Cardio/Vascular: Yes: HTN, Other (thrombus in heart per echo 11/2013; ? subclavian vein thromboses s/p dialysis catheters in the past) Pulmonary: Yes: Pulmonary Embolus Renal/: Yes: Renal Failure, Hemodialysis ...LMP: 10/02/15 Heme/Onc: Yes: Other (atrial myxoma s/p surgical removal. Also has a history of PE ) Infectious Disease: Yes: MRSA (history of bacteremia, recent mrsa foot abscess) Endocrine: Yes: Diabetes Mellitus (type 1 on insulin pump) Additional Medical History: DVT, PE on coumadin - Past Surgical History Past Surgical History: Yes: AV Fistula/Graft (Right arm) - Alcohol/Substance Use Hx Alcohol Use: No History of Substance Use: reports: None, Marijuana (used to smoke marijuana in the past, hasn't used in many years) - Smoking History Smoking history: Never smoked Have you smoked in the past 12 months: No Aproximately how many cigarettes per day: 10 - Social History Usual Living Arrangement: With Parent ADL: Independent Occupation: unemployed History of Recent Travel: No Home Medications - Allergies Allergies/Adverse Reactions: Allergies Allergy/AdvReac Type Severity Reaction Status Date / Time No Known Drug Allergies Allergy Verified 05/01/16 06:34 - Home Medications Home Medications: Ambulatory Orders Sevelamer Carbonate [Renvela -] 800 mg PO TID 09/22/15 Oxycodone HCl/Acetaminophen [Percocet 5-325 mg Tablet] 1 tab PO Q6H PRN #10 tablet MDD 4 11/11/15 Amlodipine Besylate [Norvasc -] 10 mg PO DAILY 01/23/16 Clonidine HCl [Catapres -] 0.4 mg PO TID 02/29/16 Gabapentin 100 mg PO TID 03/11/16 Metoprolol Tartrate [Lopressor] 100 mg PO BID 03/21/16 Insulin Aspart [Novolog Flexpen] 3 unit SQ TID #10 ml 03/26/16 Insulin Detemir [Levemir Flextouch] 15 unit SQ AM #10 ml 03/26/16 Family Disease History - Family Disease History Family Disease History: Diabetes: Grandparent (HTN), Heart Disease: Grandparent , Other: Father (unknown), Mother (HTN) Review of Systems - Review of Systems Constitutional: reports: No Symptoms Eyes: reports: No Symptoms HENT: reports: No Symptoms Neck: reports: No Symptoms Cardiovascular: reports: Shortness of Breath Respiratory: reports: SOB Gastrointestinal: reports: No Symptoms Genitourinary: reports: No Symptoms Musculoskeletal: reports: No Symptoms Integumentary: reports: Other (wound of RLE 5th toe) Neurological: reports: Numbness (in feet) Endocrine: reports: Increased Hunger Physical Exam Vital Signs: Vital Signs Temperature 98.3 F 05/01/16 12:55 Pulse Rate 75 05/01/16 13:00 Respiratory Rate 18 05/01/16 13:00 Blood Pressure 170/110 05/01/16 13:00 O2 Sat by Pulse Oximetry (%) 97 05/01/16 06:32 Constitutional: Yes: Well Nourished, No Distress Eyes: Yes: Conjunctiva Clear, EOM Intact HENT: Yes: Atraumatic Neck: Yes: Supple, Trachea Midline Cardiovascular: Yes: Regular Rate and Rhythm Respiratory: Yes: Regular, CTA Bilaterally Gastrointestinal: Yes: Soft Musculoskeletal: Yes: WNL Extremities: Yes: Other (right fifth with ulcer on inside of toe with fibrinous tissue) Edema: LLE: 1+, RLE: 1+ Peripheral Pulses WNL: Yes (1+ DP pulses ) Neurological: Yes: Alert, Oriented Psychiatric: Yes: Alert, Oriented Labs: CBC, BMP 05/01/16 12:55 Imaging - Results Chest X-ray: Report Reviewed, Image Reviewed Problem List - Problems (1) Hyperglycemia due to type 1 diabetes mellitus Code(s): E10.65 - TYPE 1 DIABETES MELLITUS WITH HYPERGLYCEMIA (2) Leukocytosis Assessment/Plan: could be a stress reaction secondary to DKA continue vancomycin for osteomyeltitis trend WBC count Code(s): D72.829 - ELEVATED WHITE BLOOD CELL COUNT, UNSPECIFIED (3) ESRD (end stage renal disease) on dialysis Assessment/Plan: patient is currently fluid overloaded currently being dialyzed nephrology consult appreciated Code(s): N18.6 - END STAGE RENAL DISEASE Z99.2 - DEPENDENCE ON RENAL DIALYSIS (4) Diabetic foot ulcer Assessment/Plan: continue dressing changes to foot no purulence on physical exam continue vanco Code(s): E11.621 - TYPE 2 DIABETES MELLITUS WITH FOOT ULCER L97.509 - NON-PRESSURE CHRONIC ULCER OTH PRT UNSP FOOT W UNSP SEVERITY Qualifiers: Diabetes mellitus type: type 1 Laterality: right Qualified Code(s) : E10.621 - Type 1 diabetes mellitus with foot ulcer; L97.519 - Non-pressure chronic ulcer of other part of right foot with unspecified severity (5) Dialysis patient Assessment/Plan: continue dialysis as scheduled Code(s): Z99.2 - DEPENDENCE ON RENAL DIALYSIS (6) HTN (hypertension) Assessment/Plan: continue home doses of metoprolol norvasc and clonidine Code(s): I10 - ESSENTIAL (PRIMARY) HYPERTENSION (7) Hyperkalemia Assessment/Plan: potassium intially 6.0 now 5.1 will trend potassium being dialyzed at this time will also trend down on insulin gtt recheck BMP post dialysis Code(s): E87.5 - HYPERKALEMIA (8) Osteomyelitis due to type 1 diabetes mellitus Assessment/Plan: ID consulted Vancomycin post dialysis vanco trough before dialysis Code(s): E10.69 - TYPE 1 DIABETES MELLITUS WITH OTHER SPECIFIED COMPLICATION M86.9 - OSTEOMYELITIS, UNSPECIFIED (9) Diabetic ketoacidosis with coma associated with type 1 diabetes mellitus Assessment/Plan: due to insulin non compliance and poor dietary choices Admit to ICU insulin gtt q1h BGM dietary consult bridge to levemir with diet when glucose controlled and anion gap closes Will consider D51/2NS if needed to maintain blood glucose while on insulin gtt but would hold off on IVF at this time as she is fluid overloaded patient counselled on need for compliance with medications and diet and risks of not doing so explained including and serious organ damage Code(s): E10.11 - TYPE 1 DIABETES MELLITUS WITH KETOACIDOSIS WITH COMA (10) History of pulmonary embolus (PE) Assessment/Plan: was on coumadin for 6 months no longer on anticoagulation outpt follow up no issues at this time Code(s): Z86.711 - PERSONAL HISTORY OF PULMONARY EMBOLISM (11) Acute respiratory failure Assessment/Plan: secondary to fluid overload patient feeling better with dialysis Code(s): J96.00 - ACUTE RESPIRATORY FAILURE, UNSP W HYPOXIA OR HYPERCAPNIA Assessment/Plan FEN: no IVF hyperkalemia: resolved hyponatremia/pseudohyponatremia secondary to hyperglycemia corrected sodium is within normal limits NPO for now then diabetic diet when able to eat PPx: HSQ no GI PPx indicated as patient does not met any major or minor criteria for GI prophylaxis no deconditioning issues CCTime 60 min
[2016-05-01] MEDS ORDERED: PANTOPRAZOLE 20 MG TABLET (FP) PO SCH (14:15)
--- NOTE | 2016-05-01 15:21 | PN ---
Teaching Attending Note Name of Resident: Salo Aragno ATTENDING PHYSICIAN STATEMENT I saw and evaluated the patient. I reviewed the resident's note and discussed the case with the resident. I agree with the resident's findings and plan as documented. SUBJECTIVE: 25 F, ESRD no HD (MWF), DM1 on insulin pump, Osteomylitis of right fifth toe, Atrial myxoma s/p resection, and recurrent admissions. Most recent admission was earlier this month for surgical/medical management of her osteomylitis. She had a debridement of the right fifth toe and is to get a total of 6 weeks of vancomycin. Denies any chest pain, fever, chills, abd pain, N/V/D. Admitted via the ER due to SOB and blood sugar of 700. She was started on IV Insulin drip. Intake & Output 04/28/16 04/29/16 04/30/16 05/01/16 23:59 23:59 23:59 23:59 Weight 162 lb 14.746 oz Last Vital Signs Temp Pulse Resp BP Pulse Ox 98.3 F 78 18 171/101 97 05/01/16 12:55 05/01/16 15:00 05/01/16 15:00 05/01/16 15:00 05/01/16 06:32 Active Medications Amlodipine Besylate (Norvasc -) 10 mg PO DAILY [facility] Chlorhexidine Gluconate (Hibiclens For Decolonization -) 1 applic TP HS [facility] Clonidine (Catapres -) 0.3 mg PO TID [facility] Gabapentin (Neurontin -) 100 mg PO TID [facility] Heparin Sodium (Porcine) (Heparin -) 5,000 unit SQ TID [facility] Insulin Human Regular 100 (units/ Sodium Chloride) 100 mls @ 4 mls/hr IVPB TITR [facility]; 4 UNITS/HR PRN Reason: Protocol Last Admin: 05/01/16 15:20 Dose: Not Given Insulin Detemir (Levemir Vial) 15 units SQ AM [facility] Metoprolol Tartrate (Lopressor -) 100 mg PO BID [facility] Mupirocin (Bactroban Ointment (For Decolonization) -) 1 applic NS BID [facility] Stop: 05/06/16 21:59 Constitutional: Yes: Awake and alert, No Distress Eyes: Yes: Conjunctiva Clear, EOM Intact HENT: Yes: Atraumatic Neck: Yes: Supple, Trachea Midline Cardiovascular: Yes: Regular Rate and Rhythm Respiratory: Yes: Regular, CTA Bilaterally Gastrointestinal: Yes: Soft Musculoskeletal: Yes: WNL Extremities: Yes: Right fifth digit ulceration/fibrinous tissue) Edema: LLE: 1+, RLE: 1+ Peripheral Pulses WNL: Yes (1+ DP pulses ) Neurological: Yes: Alert, Oriented Psychiatric: Yes: Alert, Oriented Labs: Laboratory Results - last 24 hr 05/01/16 05/01/16 05/01/16 07:40 07:40 07:40 WBC 6.2 RBC 3.84 Hgb 9.4 L Hct 31.4 L MCV 81.8 MCHC 29.8 L RDW 21.1 H Plt Count 299 MPV 9.3 Neutrophils % 63.6 Lymphocytes % 16.8 D Monocytes % 16.8 H Eosinophils % 1.9 Basophils % 0.9 Sodium 129 L Potassium 6.0 H D Chloride 95 L Carbon Dioxide 18 L D Anion Gap 16 BUN 56 H D Creatinine 7.0 H D Creat Clearance w eGFR 7.10 POC Glucometer Random Glucose 700 H* D Calcium 7.8 L Phosphorus Magnesium Total Bilirubin 0.4 AST 267 H D ALT 122 H D Alkaline Phosphatase 1180 H Total Protein 7.8 Albumin 3.3 L Serum , Qual Negative Vancomycin Trough Acetone, Qual 05/01/16 05/01/16 05/01/16 09:16 12:55 12:55 WBC 7.2 RBC 3.64 Hgb 8.7 L Hct 28.8 L MCV 79.3 L MCHC 30.1 L RDW 20.7 H Plt Count 284 MPV 8.8 Neutrophils % 66.6 Lymphocytes % 18.1 Monocytes % 12.6 H Eosinophils % 1.6 Basophils % 1.1 Sodium 130 L Potassium 5.1 Chloride 97 L Carbon Dioxide 17 L Anion Gap 16 BUN 60 H Creatinine 7.3 H Creat Clearance w eGFR POC Glucometer Random Glucose 453 H* D Calcium 7.9 L Phosphorus 6.0 H Magnesium 2.1 Total Bilirubin AST ALT Alkaline Phosphatase Total Protein Albumin Serum , Qual Vancomycin Trough Acetone, Qual Trace H 05/01/16 05/01/16 13:45 15:04 WBC RBC Hgb Hct MCV MCHC RDW Plt Count MPV Neutrophils % Lymphocytes % Monocytes % Eosinophils % Basophils % Sodium Potassium Chloride Carbon Dioxide Anion Gap BUN Creatinine Creat Clearance w eGFR POC Glucometer [id number] Random Glucose Calcium Phosphorus Magnesium Total Bilirubin AST ALT Alkaline Phosphatase Total Protein Albumin Serum , Qual Vancomycin Trough 17.395 H* Acetone, Qual CXR: Volume overload Problem List - Problems (1) Hyperglycemia due to type 1 diabetes mellitus Code(s): E10.65 - TYPE 1 DIABETES MELLITUS WITH HYPERGLYCEMIA (2) Leukocytosis Assessment/Plan: Code(s): D72.829 - ELEVATED WHITE BLOOD CELL COUNT, UNSPECIFIED (3) ESRD (end stage renal disease) on dialysis Assessment/Plan: Code(s): N18.6 - END STAGE RENAL DISEASE Z99.2 - DEPENDENCE ON RENAL DIALYSIS (4) Diabetic foot ulcer Assessment/Plan: Code(s): E11.621 - TYPE 2 DIABETES MELLITUS WITH FOOT ULCER L97.509 - NON-PRESSURE CHRONIC ULCER OTH PRT UNSP FOOT W UNSP SEVERITY Qualifiers: Diabetes mellitus type: type 1 Laterality: right Qualified Code(s) : E10.621 - Type 1 diabetes mellitus with foot ulcer; L97.519 - Non-pressure chronic ulcer of other part of right foot with unspecified severity (5) Dialysis patient Assessment/Plan: Code(s): Z99.2 - DEPENDENCE ON RENAL DIALYSIS (6) HTN (hypertension) Assessment/Plan: Code(s): I10 - ESSENTIAL (PRIMARY) HYPERTENSION (7) Hyperkalemia Assessment/Plan: Code(s): E87.5 - HYPERKALEMIA (8) Osteomyelitis due to type 1 diabetes mellitus Assessment/Plan: Code(s): E10.69 - TYPE 1 DIABETES MELLITUS WITH OTHER SPECIFIED COMPLICATION M86.9 - OSTEOMYELITIS, UNSPECIFIED (9) Diabetic ketoacidosis with coma associated with type 1 diabetes mellitus Assessment/Plan: Code(s): E10.11 - TYPE 1 DIABETES MELLITUS WITH KETOACIDOSIS WITH COMA (10) History of pulmonary embolus (PE) Assessment/Plan: Code(s): Z86.711 - PERSONAL HISTORY OF PULMONARY EMBOLISM (11) Acute respiratory failure Assessment/Plan: Code(s): J96.00 - ACUTE RESPIRATORY FAILURE, UNSP W HYPOXIA OR HYPERCAPNIA Assessment/Plan IV Insulin per protocol O2 as needed Follow BGM Follow K+ level HD per Renal Minimize IVF due to volume overload PO as tolerated VTE prophylaxis ICU monitoring Thank you. Dr Ballesteros CCTime 35"
[2016-05-01] MEDS: INSULIN DETEMIR 100 UNITS/ML MDV SQ SCH (15:25)
[2016-05-01] MEDS: amLODIPine BESYLATE 10 MG TABLET (FP) PO SCH (17:10)
[2016-05-01] MEDS: cloNIDine HCL 0.1 MG TABLET PO SCH ×2 (17:10→22:42)
[2016-05-01] MEDS ORDERED: OXYCODONE/APAP 5/325MG COMBO TABLET PO ONE (17:11)
[2016-05-01] MEDS: GABAPENTIN 100 MG CAPSULE (FP) PO SCH ×2 (17:11→22:43)
[2016-05-01] MEDS: HEPARIN NA (PORCINE) 5,000 UNITS/ML 1ML VIAL SQ SCH ×2 (17:11→22:43)
[2016-05-01] MEDS ORDERED: ACETAMINOPHEN 325 MG TABLET (FP) PO ONE (17:30)
[2016-05-01] MEDS ORDERED: oxyCODONE HCL 5 MG TABLET PO ONE (17:30)
[2016-05-01] MEDS: INSULIN SLIDING SCALE (NOVOLOG) 1 VIAL SQ SCH ×2 (19:47→22:43)
[2016-05-01] MEDS ORDERED: oxyCODONE HCL 5 MG TABLET ONE (20:12)
[2016-05-01] MEDS ORDERED: ACETAMINOPHEN 325 MG TABLET (FP) ONE (20:12)
[2016-05-01 20:28] LABS: MCH 23.9 pg (25.7-33.7); MCHC 31.1 g/dl (32.0-36.0); MEAN PLT VOLUME 9.3 fl (7.5-11.1); PLATELET COUNT 326 K/MM3 (134-434); RDW 20.6 % (11.6-15.6); WHITE BLOOD COUNT 6.7 K/mm3 (4.0-10.0)
[2016-05-01 21:35] LABS: ALBUMIN 3.2 g/dl (3.4-5.0); CALCIUM 8.3 mg/dL (8.5-10.1); CREATININE 3.8 mg/dL (0.55-1.02); MAGNESIUM 1.8 mg/dL (1.8-2.4)
[2016-05-01 21:47] LABS: BILIRUBIN,TOTAL 0.5 mg/dL (0.2-1.0); TOT PROT 7.8 g/dl (6.4-8.2)
[2016-05-01] MEDS ORDERED: CHLORHEXIDINE GLUCONATE 4% CLEANSER FOR DECOLONIZATION TP SCH (22:00)
[2016-05-01] MEDS: MUPIROCIN 2% TOPICAL OINTMENT FOR DECOLONIZATION NS SCH (22:42)
[2016-05-01] MEDS: METOPROLOL TARTRATE 50 MG TABLET (FP) PO SCH (22:42)
[2016-05-02] MEDS ORDERED: OXYCODONE/APAP 5/325MG COMBO TABLET PO PRN (03:37)
[2016-05-02] MEDS ORDERED: cloNIDine HCL 0.1 MG TABLET PO ONE (03:37)
[2016-05-02] MEDS ORDERED: oxyCODONE HCL 5 MG TABLET ONE (03:40)
[2016-05-02] MEDS ORDERED: ACETAMINOPHEN 325 MG TABLET (FP) ONE (03:40)
[2016-05-02] MEDS ORDERED: oxyCODONE HCL 5 MG TABLET PO PRN ×2 (03:47→04:25)
[2016-05-02] MEDS ORDERED: ACETAMINOPHEN 325 MG TABLET (FP) PO PRN ×2 (03:47→04:25)
[2016-05-02] MEDS ORDERED: cloNIDine HCL 0.1 MG TABLET PO SCH (05:45)
[2016-05-02 06:07] LABS: HEP B SURFACE AB Reactive (.)
[2016-05-02] MEDS: HEPARIN NA (PORCINE) 5,000 UNITS/ML 1ML VIAL SQ SCH ×3 (06:35→21:46)
[2016-05-02] MEDS: GABAPENTIN 100 MG CAPSULE (FP) PO SCH ×3 (06:36→21:35)
[2016-05-02] MEDS: INSULIN SLIDING SCALE (NOVOLOG) 1 VIAL SQ SCH ×5 (06:36→21:43)
[2016-05-02] MEDS: INSULIN DETEMIR 100 UNITS/ML MDV SQ SCH (06:36)
[2016-05-02 06:48] LABS: ALBUMIN 3.1 g/dl (3.4-5.0); CALCIUM 8.3 mg/dL (8.5-10.1); CREATININE 4.9 mg/dL (0.55-1.02); MAGNESIUM 1.9 mg/dL (1.8-2.4); PHOSPHOROUS 5.7 mg/dL (2.5-4.9); TOT PROT 7.6 g/dl (6.4-8.2)
[2016-05-02 06:51] LABS: BILIRUBIN,TOTAL 0.3 mg/dL (0.2-1.0); MCH 23.9 pg (25.7-33.7); MCHC 30.4 g/dl (32.0-36.0); MEAN CELL VOLUME 78.6 fl (80-96); MEAN PLT VOLUME 9.4 fl (7.5-11.1); PLATELET COUNT 318 K/MM3 (134-434); RDW 20.6 % (11.6-15.6); WHITE BLOOD COUNT 7.4 K/mm3 (4.0-10.0)
--- NOTE | 2016-05-02 07:57 | PN ---
Progress Note (short form) - Note Progress Note: currently asymptomatic. states her leg swelling improved significantly since yesterday. tolerating food well. states she has not been compliant with medications because she is tired of taking them all the time. denies CP, SOB, fever, chills, NA, N/V/C/D Current Medications Generic Name Dose Route Start Last Admin Trade Name Freq PRN Reason Stop Dose Admin Acetaminophen 325 mg 05/02/16 04:25 Tylenol - PO Q6H PRN PAIN Amlodipine Besylate 10 mg 05/01/16 13:12 05/01/16 17:10 Norvasc - PO 10 mg DAILY [facility] Administration Chlorhexidine Gluconate 1 applic 05/01/16 22:00 05/01/16 22:43 Hibiclens For Decolonization - TP 1 applic HS [facility] Administration Clonidine 0.4 mg 05/02/16 05:45 05/02/16 06:34 Catapres - PO 0.4 mg TID [facility] Administration Gabapentin 100 mg 05/01/16 14:00 05/02/16 06:36 Neurontin - PO 100 mg TID [facility] Administration Heparin Sodium (Porcine) 5,000 unit 05/01/16 14:00 05/02/16 06:35 Heparin - SQ 5,000 unit TID [facility] Administration Insulin Aspart 1 vial 05/01/16 16:30 05/02/16 06:36 Novolog Vial Sliding Scale - SQ Not Given ACHS [facility] Protocol Insulin Detemir 15 units 05/01/16 15:15 05/02/16 06:36 Levemir Vial SQ 15 unit AM [facility] Administration Metoprolol Tartrate 100 mg 05/01/16 22:00 05/01/16 22:42 Lopressor - PO 100 mg BID [facility] Administration Mupirocin 1 applic 05/01/16 22:00 05/01/16 22:42 Bactroban Ointment (For Decolonization) - NS 05/06/16 21:59 1 applic BID [facility] Administration Oxycodone HCl 5 mg 05/02/16 04:25 Roxicodone - PO Q6H PRN PAIN Last Vital Signs Temp Pulse Resp BP Pulse Ox 97.8 F 74 16 179/108 96 05/02/16 06:00 05/02/16 06:00 05/02/16 06:00 05/02/16 06:00 05/01/16 20:37 General NAD CV S1 S2 RRR +murmur no rubs or gallops Lungs CTA B/L no wheezing/rales/rhonchi Abdomen soft NT/nD Extremities 2+ pitting edema CBCD WBC 7.4 K/mm3 (4.0-10.0) 05/02/16 05:20 RBC 4.01 M/mm3 (3.60-5.2) 05/02/16 05:20 Hgb 9.6 GM/dL (10.7-15.3) L 05/02/16 05:20 Hct 31.5 % (32.4-45.2) L 05/02/16 05:20 MCV 78.6 fl (80-96) L 05/02/16 05:20 MCHC 30.4 g/dl (32.0-36.0) L 05/02/16 05:20 RDW 20.6 % (11.6-15.6) H 05/02/16 05:20 Plt Count 318 K/MM3 (134-434) 05/02/16 05:20 MPV 9.4 fl (7.5-11.1) 05/02/16 05:20 CMP Sodium 137 mmol/L (136-145) 05/02/16 05:20 Potassium 4.5 mmol/L (3.5-5.1) 05/02/16 05:20 Chloride 95 mmol/L (98-107) L 05/02/16 05:20 Carbon Dioxide 29 mmol/L (21-32) 05/02/16 05:20 Anion Gap 13 (8-16) 05/02/16 05:20 BUN 37 mg/dL (7-18) H D 05/02/16 05:20 Creatinine 4.9 mg/dL (0.55-1.02) H D 05/02/16 05:20 Creat Clearance w eGFR 10.71 (>60) 05/02/16 05:20 Random Glucose 99 mg/dL (74-106) D 05/02/16 05:20 Calcium 8.3 mg/dL (8.5-10.1) L 05/02/16 05:20 Total Bilirubin 0.3 mg/dL (0.2-1.0) D 05/02/16 05:20 AST 81 U/L (15-37) H D 05/02/16 05:20 ALT 80 U/L (12-78) H 05/02/16 05:20 Alkaline Phosphatase 995 U/L (45-117) H 05/02/16 05:20 Total Protein 7.6 g/dl (6.4-8.2) 05/02/16 05:20 Albumin 3.1 g/dl (3.4-5.0) L 05/02/16 05:20 A/P 25 yo F with a PMH of anemia, hypertension, PE 6 yrs ago s/p 6 mo course of coumadin, insulin dependent diabetes mellitus 1, end stage renal disease (on hemodialysis MWF), myosistis, osteomylities (right fifth digit on daily vanco) and seizure disorders presented to the ER and was admitted for further evaluation of their emergent condition 1. DKA- AG closed at 1930 last evening. tolerating diet. sugars now improved. home regimen re-started. will monitor bgm and iss 2. HTN- uncontrolled. increase clonidine to 0.6mg to optimize BP. cont metoprolol and norvasc 3. ESRD on HD- (MWF). HD yesterday with good volume removal. decreased in 8 pounds. cont HD per nephrology 4. OM R 5th digit- on Vanco. level therapeutic. cont current dosing 5. DVT ppx- hep sq 6. stable for transfer to medical floors Visit type - Emergency Visit Emergency Visit: Yes ED Registration Date: 05/01/16 Care time: The patient presented to the Emergency Department on the above date and was hospitalized for further evaluation of their emergent condition. - New Patient This patient is new to me today: Yes Date on this admission: 05/02/16 - Critical Care Critical Care patient: Yes Total Critical Care Time (in minutes): 40 Critical Care Statement: The care of this patient involved high complexity decision making to prevent further life threatening deterioration of the patient 's condition and/or to evalute & treat vital organ system(s) failure or risk of failure. - Discharge Referral Referred to [facility] Med [facility].C.: No
--- NOTE | 2016-05-02 08:54 | PN ---
Progress Note (short form) - Note Progress Note: ID consult dictated imp/reccd 25 year old female with DM (poorly controlled), HTN (poorly controlled), esrd/hd - admitted with volume overload on treatment for acute osteomyelitis of the right fifth toe (has missed several wound care appts, did not tolerate HBO) asked to f/u for osteomyelitis of the right fifth toe she is s/p right fifth toe arthroplasty and bone biopsy 03/24- operative cultures/bone - mrsa has been getting vancomycine with HD now admitted with volume overload now day #38 vancomycin would check ESR/CRP should f/u with podiatry as outpt in wound care she has been missing appts due to volume overload continue vancomycin with HD for now until seen by podiatry and we see f/u labs -planning total 6 to 8 weeks antibiotics depending on esr/crp hemodialysis per renal diabetes- poor control htn- poor control d/w hospitalist service mrsa contact isolation
--- NOTE | 2016-05-02 08:58 | PN ---
Progress Note (short form) - Note Progress Note: Seen and examined in the ICU AG closed, transitioned to [place] sq. tolerating diet received HD -4liters escalating HTN meds Denies: GUTIERRES/CP/SOB/N/V Current Medications Acetaminophen (Tylenol -) 325 mg PO Q6H PRN PRN Reason: PAIN Amlodipine Besylate (Norvasc -) 10 mg PO DAILY [facility] Last Admin: 05/01/16 17:10 Dose: 10 mg Chlorhexidine Gluconate (Hibiclens For Decolonization -) 1 applic TP HS [facility] Last Admin: 05/01/16 22:43 Dose: 1 applic Clonidine (Catapres -) 0.6 mg PO TID [facility] Gabapentin (Neurontin -) 100 mg PO TID [facility] Last Admin: 05/02/16 06:36 Dose: 100 mg Heparin Sodium (Porcine) (Heparin -) 5,000 unit SQ TID [facility] Last Admin: 05/02/16 06:35 Dose: 5,000 unit Insulin Aspart (Novolog Vial Sliding Scale -) 1 vial SQ [facility] PRN Reason: Protocol Last Admin: 05/02/16 06:36 Dose: Not Given Insulin Detemir (Levemir Vial) 15 units SQ AM [facility] Last Admin: 05/02/16 06:36 Dose: 15 unit Metoprolol Tartrate (Lopressor -) 100 mg PO BID [facility] Last Admin: 05/01/16 22:42 Dose: 100 mg Mupirocin (Bactroban Ointment (For Decolonization) -) 1 applic NS BID [facility] Stop: 05/06/16 21:59 Last Admin: 05/01/16 22:42 Dose: 1 applic Oxycodone HCl (Roxicodone -) 5 mg PO Q6H PRN PRN Reason: PAIN Vital Signs Period Temp Pulse Resp BP Sys/Ames Pulse Ox Last 24 Hr 97.3 F-98.7 F 74-84 10-22 158-199/76-121 96-98 Intake & Output 04/29/16 04/30/16 05/01/16 05/02/16 23:59 23:59 23:59 23:59 Intake Total 400 240 Output Total 0 0 Balance 400 240 Weight 73.9 kg 70.052 kg PERRL, no JVD faint in sp crackles in bases CV: RRR Abd: SNTND Ext: WWP, +3/4 Le edema wound: toe wrapped Neuro: grossly intact CBCD WBC 7.4 K/mm3 (4.0-10.0) 05/02/16 05:20 RBC 4.01 M/mm3 (3.60-5.2) 05/02/16 05:20 Hgb 9.6 GM/dL (10.7-15.3) L 05/02/16 05:20 Hct 31.5 % (32.4-45.2) L 05/02/16 05:20 MCV 78.6 fl (80-96) L 05/02/16 05:20 MCHC 30.4 g/dl (32.0-36.0) L 05/02/16 05:20 RDW 20.6 % (11.6-15.6) H 05/02/16 05:20 Plt Count 318 K/MM3 (134-434) 05/02/16 05:20 MPV 9.4 fl (7.5-11.1) 05/02/16 05:20 CMP Sodium 137 mmol/L (136-145) 05/02/16 05:20 Potassium 4.5 mmol/L (3.5-5.1) 05/02/16 05:20 Chloride 95 mmol/L (98-107) L 05/02/16 05:20 Carbon Dioxide 29 mmol/L (21-32) 05/02/16 05:20 Anion Gap 13 (8-16) 05/02/16 05:20 BUN 37 mg/dL (7-18) H D 05/02/16 05:20 Creatinine 4.9 mg/dL (0.55-1.02) H D 05/02/16 05:20 Creat Clearance w eGFR 10.71 (>60) 05/02/16 05:20 Random Glucose 99 mg/dL (74-106) D 05/02/16 05:20 Calcium 8.3 mg/dL (8.5-10.1) L 05/02/16 05:20 Total Bilirubin 0.3 mg/dL (0.2-1.0) D 05/02/16 05:20 AST 81 U/L (15-37) H D 05/02/16 05:20 ALT 80 U/L (12-78) H 05/02/16 05:20 Alkaline Phosphatase 995 U/L (45-117) H 05/02/16 05:20 Total Protein 7.6 g/dl (6.4-8.2) 05/02/16 05:20 Albumin 3.1 g/dl (3.4-5.0) L 05/02/16 05:20 Problem List - Problems (1) Hyperglycemia due to type 1 diabetes mellitus Code(s): E10.65 - TYPE 1 DIABETES MELLITUS WITH HYPERGLYCEMIA (2) Leukocytosis Assessment/Plan: Code(s): D72.829 - ELEVATED WHITE BLOOD CELL COUNT, UNSPECIFIED (3) ESRD (end stage renal disease) on dialysis Assessment/Plan: Code(s): N18.6 - END STAGE RENAL DISEASE Z99.2 - DEPENDENCE ON RENAL DIALYSIS (4) Diabetic foot ulcer Assessment/Plan: Code(s): E11.621 - TYPE 2 DIABETES MELLITUS WITH FOOT ULCER L97.509 - NON-PRESSURE CHRONIC ULCER OTH PRT UNSP FOOT W UNSP SEVERITY Qualifiers: Diabetes mellitus type: type 1 Laterality: right Qualified Code(s) : E10.621 - Type 1 diabetes mellitus with foot ulcer; L97.519 - Non-pressure chronic ulcer of other part of right foot with unspecified severity (5) Dialysis patient Assessment/Plan: Code(s): Z99.2 - DEPENDENCE ON RENAL DIALYSIS (6) HTN (hypertension) Assessment/Plan: Code(s): I10 - ESSENTIAL (PRIMARY) HYPERTENSION (7) Hyperkalemia Assessment/Plan: Code(s): E87.5 - HYPERKALEMIA (8) Osteomyelitis due to type 1 diabetes mellitus Assessment/Plan: Code(s): E10.69 - TYPE 1 DIABETES MELLITUS WITH OTHER SPECIFIED COMPLICATION M86.9 - OSTEOMYELITIS, UNSPECIFIED (9) Diabetic ketoacidosis with coma associated with type 1 diabetes mellitus Assessment/Plan: Code(s): E10.11 - TYPE 1 DIABETES MELLITUS WITH KETOACIDOSIS WITH COMA (10) History of pulmonary embolus (PE) Assessment/Plan: Code(s): Z86.711 - PERSONAL HISTORY OF PULMONARY EMBOLISM (11) Acute respiratory failure Assessment/Plan: Code(s): J96.00 - ACUTE RESPIRATORY FAILURE, UNSP W HYPOXIA OR HYPERCAPNIA Assessment/Plan Cont insulin sliding scale O2 as needed Follow BGM HD per Renal, may require additional session today fluid restriction titrate anti-HTN meds PO as tolerated VTE prophylaxis can transfer to floor Zafarrem ACNP Pulm/CCM CT: 35
[2016-05-02] MEDS ORDERED: cloNIDine HCL 0.1 MG TABLET ONE (09:09)
[2016-05-02] MEDS: METOPROLOL TARTRATE 50 MG TABLET (FP) PO SCH (09:10)
[2016-05-02] MEDS: amLODIPine BESYLATE 10 MG TABLET (FP) PO SCH (09:10)
[2016-05-02] MEDS: MUPIROCIN 2% TOPICAL OINTMENT FOR DECOLONIZATION NS SCH ×2 (09:11→09:12)
--- NOTE | 2016-05-02 10:14 | PN ---
Progress Note (short form) - Note Progress Note: Renal Follow up for ESRD on HD/Volume Overload Pt seen and examined in the ICU awake and alert no acute complaints denies sob, chest pain, abd pain s/p dialysis yesterday with 5kg UF Vital Signs Temperature 97.8 F 05/02/16 06:00 Pulse Rate 74 05/02/16 10:00 Respiratory Rate 15 05/02/16 10:00 Blood Pressure 176/106 05/02/16 10:00 O2 Sat by Pulse Oximetry (%) 96 05/01/16 20:37 Intake & Output 04/29/16 04/30/16 05/01/16 05/02/16 23:59 23:59 23:59 23:59 Intake Total 400 240 Output Total 0 0 Balance 400 240 Weight 162 lb 14.746 oz 154 lb 7 oz Gen: NAD, awake and alert CVS: RRR, No M/R Lungs: CTA Abd: soft NT/ND Ext: >2+ edema in LE, no cyanosis of clubbing CBC, BMP 05/02/16 05:20 05/02/16 05:20 Current Medications Acetaminophen (Tylenol -) 325 mg PO Q6H PRN PRN Reason: PAIN Chlorhexidine Gluconate (Hibiclens For Decolonization -) 1 applic TP HS [facility] Last Admin: 05/01/16 22:43 Dose: 1 applic Clonidine (Catapres -) 0.6 mg PO TID [facility] Gabapentin (Neurontin -) 100 mg PO TID [facility] Last Admin: 05/02/16 06:36 Dose: 100 mg Heparin Sodium (Porcine) (Heparin -) 5,000 unit SQ TID [facility] Last Admin: 05/02/16 06:35 Dose: 5,000 unit Insulin Aspart (Novolog Vial Sliding Scale -) 1 vial SQ ACHS [facility] PRN Reason: Protocol Last Admin: 05/02/16 06:36 Dose: Not Given Insulin Detemir (Levemir Vial) 15 units SQ AM [facility] Last Admin: 05/02/16 06:36 Dose: 15 unit Labetalol HCl (Normodyne -) 400 mg PO BID [facility] Mupirocin (Bactroban Ointment (For Decolonization) -) 1 applic NS BID [facility] Stop: 05/06/16 21:59 Last Admin: 05/02/16 09:12 Dose: Not Given Nifedipine (Procardia Xl -) 60 mg PO DAILY [facility] Oxycodone HCl (Roxicodone -) 5 mg PO Q6H PRN PRN Reason: PAIN A/P 25 year old woman with PMhx of ESRD no HD (MWF), IDDM on insulin pump, Osteomylitis, Atrial thrombosis who presented to the ED with complains of sob and increasing leg swelling. #ESRD on HD/Hyperkalemia/Volume Overload s/p Dialysis yesterday Will plan for additional dialysis today with 3-3.5kg UF as tolerated #Uncontrolled Hypertension secondary to volume overload + underlying hypertension UF today with HD Change metoprolol to labetalol Change Norvasc to Procardia Clonidine increased today Pt not a good canidate for ARB/DAMIAN because of history of hyperkalemia #Osteomylitis of the LE s/p Vanco yesterday Check level pre-HD today and redose if level < 20 #DKA/Hyperglycemia/IDDM on SC insulin now ICU monitoring #CKD related Anemia Continue Epogen with HD Nathan Vo DO
--- NOTE | 2016-05-02 11:22 | CONS ---
INFECTIOUS DISEASE CONSULTATION DATE OF CONSULTATION: DATE OF DICTATION: 05/02/2016 REQUESTED BY: The hospitalist service. DICTATED BY: Alia Dickens MD HISTORY OF PRESENT ILLNESS: This is a 25-year-old woman with long-standing insulin-dependent diabetes and end-stage renal disease, on dialysis. She has a history of recurrent MRSA infections starting back in 2014. Most recently in March, she was hospitalized March 22 with acute onset of an ulcer of her toe. The foot became swollen. She was admitted and seen by podiatry on March 24. She underwent right fifth toe arthroplasty and was found to have acute osteomyelitis. Bone culture was positive for MRSA, and she was discharged on vancomycin to be given during dialysis. She has been getting vancomycin with dialysis. She apparently was started on hyperbaric, which she has not tolerated and which was stopped. She complains of volume overload. She reports for the last several weeks, she has had volume overload. She has not followed up with the refining supervisor as well in the last several weeks. There are no fevers or chills. She presented to the emergency room yesterday with complaints of volume overload, shortness of breath, and she was found to have glucose of 700. I am asked to see her now for followup of her toe infection. As stated before, she has no fevers or chills. She has had no drainage. She has been using bacitracin and keeping the area dry and clean. PAST MEDICAL HISTORY: Her past medical history is notable for: 1. History of hypertension 2. Diabetes 3. Peripheral neuropathy 4. End-stage renal disease. She is on dialysis. 5. She has a history of recurrent MRSA admissions. 6. She has had multiple emergency room admissions for hyperglycemia and DKA. She is noncompliant with her diet. 7. Anemia. 8. Volume overload. PAST SURGICAL HISTORY: Her surgical history is notable for: 1. Removal of a myxoma. 2. She has a left AV fistula. 3. She has had a PermaCath in the past. 4. She has had left surgery for an abscess and this recent right fifth toe arthroplasty on March 24. FAMILY HISTORY: Family history is positive for: 1. Diabetes 2. Hypertension ALLERGIES: She has no known drug allergies. MEDICATIONS: Her medications at home include: 1. Renvela 2. Percocet 3. Lopressor 4. Insulin 5. Gabapentin 6. Catapres 7. Amlodipine SOCIAL HISTORY: She lives with her family. There is no history of any cigarette or substance use. REVIEW OF SYSTEMS: Notable for: 1. Shortness of breath 2. Increased edema. She says her dry weight is 61 kg, and her weight on admission here was 162 pounds. PHYSICAL EXAM: Vital signs: Temperature is 97.8. Pulse is 76. Blood pressure is 199/117 with a respiratory rate of 16. Current weight is 154 pounds. HEENT exam: She is normocephalic. Her eyes are anicteric. Lungs: Her lungs have crackles at the bases. Heart: Her heart is regular rate and rhythm. Abdomen: Her abdomen is soft, nontender. Extremities: She has bilateral edema. She has a small ulcer between the 4th and 5th toe of her right foot. There is no drainage. LABS: Her white count is 7.4, hemoglobin 9.6. Platelets are 318. BUN and creatinine are 37 and 3.9 with a glucose of 99 this morning. AST of 81, ALT of 80, alkaline phosphatase at 995. SUMMARY: In summary, this is a 25-year-old woman with diabetes poorly controlled and hypertension poorly controlled, on dialysis with volume overload who is now on day 38 of vancomycin. On treatment for MRSA, osteomyelitis of her right 5th toe. RECOMMENDATIONS: 1. I would check a sedimentation rate and a CRP so we can compare to the labs from March when she was here. 2. She should follow up with podiatry. She has been missing appointments due to volume overload. 3. I would continue her vancomycin with dialysis for now, pending the repeat labs and podiatry followup. 4. Hemodialysis per renal. Diabetes, hypertension. 5. She needs to be in MRSA contact isolation. All of the above was discussed with the hospitalist service. ALIA DICKENS M.D. [id number]
[2016-05-02] MEDS: cloNIDine HCL 0.1 MG TABLET PO SCH ×2 (14:00→21:34)
[2016-05-02] MEDS ORDERED: INSULIN (NOVOLOG) ASPART 100 UNITS/ML 10ML VIAL ONE ×2 (17:09→21:38)
[2016-05-02] MEDS ORDERED: NIFEdipine E.R 60 MG TABLET (UD) PO SCH (17:15)
[2016-05-02] MEDS: LABETALOL HCL 200 MG TABLET (FP) PO SCH (21:35)
[2016-05-02] MEDS: oxyCODONE HCL 5 MG TABLET PO PRN (21:43)
[2016-05-02] MEDS: ACETAMINOPHEN 325 MG TABLET (FP) PO PRN (21:44)
[2016-05-03] MEDS: LABETALOL HCL 200 MG TABLET (FP) PO SCH ×3 (06:24→21:48)
[2016-05-03] MEDS: GABAPENTIN 100 MG CAPSULE (FP) PO SCH ×3 (06:25→21:49)
[2016-05-03] MEDS: NIFEdipine E.R 60 MG TABLET (UD) PO SCH ×2 (06:25→09:02)
[2016-05-03] MEDS: HEPARIN NA (PORCINE) 5,000 UNITS/ML 1ML VIAL SQ SCH ×4 (06:25→21:56)
[2016-05-03] MEDS: cloNIDine HCL 0.1 MG TABLET PO SCH ×3 (06:25→21:52)
[2016-05-03] MEDS: INSULIN DETEMIR 100 UNITS/ML MDV SQ SCH (07:08)
[2016-05-03] MEDS: INSULIN SLIDING SCALE (NOVOLOG) 1 VIAL SQ SCH ×4 (07:09→21:49)
[2016-05-03] MEDS: oxyCODONE HCL 5 MG TABLET PO PRN (07:09)
[2016-05-03] MEDS: ACETAMINOPHEN 325 MG TABLET (FP) PO PRN (07:11)
[2016-05-03 07:51] LABS: MCH 24.2 pg (25.7-33.7); MCHC 30.3 g/dl (32.0-36.0); MEAN CELL VOLUME 79.8 fl (80-96); MEAN PLT VOLUME 9.1 fl (7.5-11.1); PLATELET COUNT 270 K/MM3 (134-434); RDW 20.5 % (11.6-15.6); WHITE BLOOD COUNT 8.6 K/mm3 (4.0-10.0)
[2016-05-03 08:33] LABS: BILIRUBIN,DIRECT 0.1 mg/dL (0.0-0.2); BILIRUBIN,TOTAL 0.3 mg/dL (0.2-1.0); TOT PROT 7.4 g/dl (6.4-8.2)
[2016-05-03] MEDS ORDERED: EPOETIN ALFA 20,000 UNIT/1 ML VIAL SQ ONE (08:39)
[2016-05-03 08:41] LABS: C-REACTIVE PROTEIN 1.4 MG/DL (0.00-0.3); CALCIUM 8.5 mg/dL (8.5-10.1); CREATININE 4.8 mg/dL (0.55-1.02); MAGNESIUM 1.8 mg/dL (1.8-2.4); PHOSPHOROUS 5.9 mg/dL (2.5-4.9)
--- NOTE | 2016-05-03 09:26 | PN ---
Progress Note (short form) - Note Progress Note: no complaints s/p HD yesterday BP remains poorly controlled gained 4 pounds! Vital Signs Period Temp Pulse Resp BP Sys/Ames Pulse Ox Last 24 Hr 97.6 F-98.4 F 74-95 12-19 153-187/105-114 96 cor-rrr lungs clear abd soft,nt ext edema CBC, BMP 05/03/16 07:15 05/03/16 07:15 Laboratory Tests 03/26/16 05/03/16 06:30 07:15 C-Reactive Protein 11.4 H D 1.4 H D a/p volume overload poorly controlled diabetes poorly controlled HTN MRSA osteo- day #39 crp improved f/u esr will speak with quantometer operator tomorrow continue vancomycin for now
[2016-05-03] MEDS ORDERED: NIFEdipine E.R 60 MG TABLET (UD) PO SCH (10:00)
--- NOTE | 2016-05-03 11:21 | PN ---
Physical Exam: SUBJECTIVE: Patient seen and examined Patietn resting in bed comfortably NAD. No acute events overnight. afebrile and hemodynamically stable. tolerating diet, denies nausea or vomiting. chest tightness and orthopnea resolves. Her LE edema is better and BP is better controlled. denies dizziness, chest pain, palpitations, sob, h/a, and pain or diarrhea. reports some constipation . OBJECTIVE: Vital Signs Period Temp Pulse Resp BP Sys/Ames Pulse Ox Last 24 Hr 97.6 F-98.4 F 74-95 12-19 153-187/105-114 96 GENERAL: Awake, alert, and fully oriented, in no acute distress. HEAD: Normal with no signs of trauma. EYES: Pupils equal, round and reactive to light, extraocular movements intact, sclera anicteric, conjunctiva clear. EARS, NOSE, THROAT: Moist mucous membranes. NECK: supple LUNGS: Breath sounds equal, clear to auscultation bilaterally. HEART: Regular rate and rhythm, normal S1 and S2 ABDOMEN: Soft, nontender, not distended, normoactive bowel sounds, MUSCULOSKELETAL: No CVA tenderness. UPPER EXTREMITIES: 2+ pulses, warm, well-perfused. No peripheral edema. LOWER EXTREMITIES: 2+ pulses, warm, well-perfused. No calf tenderness. 1+ peripheral edema, improved . NEUROLOGICAL: Cranial nerves II-XII grossly intact. Normal speech. PSYCHIATRIC: Cooperative. Good eye contact. Appropriate mood and affect. SKIN: Warm, dry, Laboratory Results - last 24 hr 05/02/16 05/02/16 05/02/16 11:13 12:00 17:11 WBC RBC Hgb Hct MCV MCHC RDW Plt Count MPV ESR Sodium Potassium Chloride Carbon Dioxide Anion Gap BUN Creatinine POC Glucometer [phone] Random Glucose Calcium Phosphorus Magnesium Total Bilirubin Direct Bilirubin AST ALT Alkaline Phosphatase C-Reactive Protein Total Protein Albumin Vancomycin Trough 20.822 H* 05/02/16 05/03/16 05/03/16 21:32 07:15 07:15 WBC RBC Hgb Hct MCV MCHC RDW Plt Count MPV ESR 47 H Sodium 132 L Potassium 4.5 Chloride 91 L Carbon Dioxide 24 Anion Gap 17 H BUN 40 H Creatinine 4.8 H POC Glucometer 243 Random Glucose 389 H* D Calcium 8.5 Phosphorus 5.9 H Magnesium 1.8 Total Bilirubin Direct Bilirubin AST ALT Alkaline Phosphatase C-Reactive Protein 1.4 H D Total Protein Albumin Vancomycin Trough 05/03/16 05/03/16 07:15 07:15 WBC 8.6 RBC 3.76 Hgb 9.1 L Hct 30.0 L MCV 79.8 L MCHC 30.3 L RDW 20.5 H Plt Count 270 MPV 9.1 ESR Sodium Potassium Chloride Carbon Dioxide Anion Gap BUN Creatinine POC Glucometer Random Glucose Calcium Phosphorus Magnesium Total Bilirubin 0.3 Direct Bilirubin 0.1 D AST 50 H D ALT 61 D Alkaline Phosphatase 925 H C-Reactive Protein Total Protein 7.4 Albumin 3.0 L Vancomycin Trough Active Medications Generic Name Dose Route Start Last Admin Trade Name Freq PRN Reason Stop Dose Admin Acetaminophen 325 mg 05/02/16 17:01 05/03/16 07:11 Tylenol - PO 325 mg Q6H PRN Administration PAIN Clonidine 0.6 mg 05/02/16 08:08 05/03/16 06:25 Catapres - PO 0.6 mg TID [facility] Administration Epoetin Abiel 30,000 unit 05/04/16 10:55 Procrit - IVPUSH 05/04/16 10:56 ONCE ONE Gabapentin 100 mg 05/02/16 22:00 05/03/16 06:25 Neurontin - PO 100 mg TID [facility] Administration Heparin Sodium (Porcine) 5,000 unit 05/02/16 22:00 05/03/16 06:25 Heparin - SQ Not Given TID [facility] Insulin Aspart 1 vial 05/02/16 22:00 05/03/16 07:09 Novolog Vial Sliding Scale - SQ 10 units ACHS [facility] Administration Protocol Insulin Detemir 15 units 05/03/16 07:00 05/03/16 07:08 Levemir Vial SQ 15 units AM [facility] Administration Labetalol HCl 400 mg 05/02/16 22:00 05/03/16 09:02 Normodyne - PO Not Given BID [facility] Mupirocin 1 applic 05/03/16 10:00 Bactroban 2% Cream - TP BID [facility] Nifedipine 60 mg 05/02/16 17:06 05/03/16 09:02 Procardia Xl - PO Not Given DAILY [facility] Oxycodone HCl 5 mg 05/02/16 17:01 05/03/16 07:09 Roxicodone - PO 5 mg Q6H PRN Administration PAIN Polyethylene Glycol 17 gm 05/03/16 11:00 Miralax (For Daily Use) - PO DAILY [facility] ASSESSMENT/PLAN: This is a 25 yo F with a PMH of anemia, hypertension, PE 6 yrs ago s/p 6 mo course of coum, insulin dependent diabetes mellitus 1, end stage renal disease ( on hemodialysis MWF), myosistis, osteomylities (right fifth digit on daily vanco ) and seizure disorders who presents to the emergency department due to SOB. She states that she is sob due to volume overloading. Found to be in dka DKA in setting of IDDM1 -medication noncompiant at home -diet noncompliant -glucose admission 700, gap 16 -was in ICU on insulin drip, gap closed was xferred to floor -tolerating PO, asymptomatic -glucose this morning 389 gap 17; will monitor -denies diarrhea; no other nonglycemic apparent causes of gap acidosis identified -levemir 15 u am, sliding scale requiring 6 u yesterday ESRD -DH MWF -volume overloaded >10kg over dry weight on admission -Renal consulted -s/p HD and UF wed/wed -plan HD wednesday, epoden [id number] IV after HD -renal diet -1L fluid restriction Diabetic R foot ulcer/osteomyelitis -vanco day 39 daily 1 gm after HD. trough therapeutic -daily trough and dose adjustment -ID consult HTN -clonidine 0.6 tid, labetalol, procardia -systolic 137 this am Elevated alk phos -925 -abd US to r/o abd pathology Constipation -miralax FEN 1L fluid restrict pseudohyponatremia DVT Gi PPX: PPI, HEp, scd Dispo: monitor in med surge Problem List - Problems (1) Acute respiratory failure Code(s): J96.00 - ACUTE RESPIRATORY FAILURE, UNSP W HYPOXIA OR HYPERCAPNIA (2) Diabetic ketoacidosis with coma associated with type 1 diabetes mellitus Code(s): E10.11 - TYPE 1 DIABETES MELLITUS WITH KETOACIDOSIS WITH COMA (3) Fluid overload Code(s): E87.70 - FLUID OVERLOAD, UNSPECIFIED Qualifiers: Hypervolemia type: unspecified Qualified Code(s): E87.70 - Fluid overload, unspecified (4) History of pulmonary embolus (PE) Code(s): Z86.711 - PERSONAL HISTORY OF PULMONARY EMBOLISM (5) Hyperglycemia due to type 1 diabetes mellitus Code(s): E10.65 - TYPE 1 DIABETES MELLITUS WITH HYPERGLYCEMIA (6) Leukocytosis Code(s): D72.829 - ELEVATED WHITE BLOOD CELL COUNT, UNSPECIFIED (7) Osteomyelitis due to type 1 diabetes mellitus Code(s): E10.69 - TYPE 1 DIABETES MELLITUS WITH OTHER SPECIFIED COMPLICATION M86.9 - OSTEOMYELITIS, UNSPECIFIED (8) ESRD (end stage renal disease) on dialysis Code(s): N18.6 - END STAGE RENAL DISEASE Z99.2 - DEPENDENCE ON RENAL DIALYSIS (9) Diabetes mellitus, insulin dependent (IDDM), uncontrolled Code(s): E10.65 - TYPE 1 DIABETES MELLITUS WITH HYPERGLYCEMIA (10) Diabetic foot infection Code(s): E11.69 - TYPE 2 DIABETES MELLITUS WITH OTHER SPECIFIED COMPLICATION L08.9 - LOCAL INFECTION OF THE SKIN AND SUBCUTANEOUS TISSUE, UNSP (11) Diabetic foot ulcer Code(s): E11.621 - TYPE 2 DIABETES MELLITUS WITH FOOT ULCER L97.509 - NON-PRESSURE CHRONIC ULCER OTH PRT UNSP FOOT W UNSP SEVERITY Qualifiers: Diabetes mellitus type: type 1 Laterality: right Qualified Code(s) : E10.621 - Type 1 diabetes mellitus with foot ulcer; L97.519 - Non-pressure chronic ulcer of other part of right foot with unspecified severity (12) Open wound of foot Code(s): S91.309A - UNSPECIFIED OPEN WOUND, UNSPECIFIED FOOT, INITIAL ENCOUNTER (13) Osteomyelitis Code(s): M86.9 - OSTEOMYELITIS, UNSPECIFIED Qualifiers: Osteomyelitis location: foot Laterality: right Chronicity: acute Qualified Code(s): M86.171 - Other acute osteomyelitis, right ankle and foot (14) Dialysis patient Code(s): Z99.2 - DEPENDENCE ON RENAL DIALYSIS (15) HTN (hypertension) Code(s): I10 - ESSENTIAL (PRIMARY) HYPERTENSION (16) Hyperkalemia Code(s): E87.5 - HYPERKALEMIA Visit type - Emergency Visit Emergency Visit: Yes ED Registration Date: 05/01/16 Care time: The patient presented to the Emergency Department on the above date and was hospitalized for further evaluation of their emergent condition. - New Patient This patient is new to me today: No - Critical Care Critical Care patient: No - Discharge Referral Referred to [facility] Med P.C.: No
[2016-05-03] MEDS: POLYETHYLENE GLYCOL 3350 119 GM BTL PO SCH (12:15)
--- NOTE | 2016-05-03 12:28 | PN ---
Teaching Attending Note Name of Resident: Nurys Phoenix ATTENDING PHYSICIAN STATEMENT I saw and evaluated the patient. I reviewed the resident's note and discussed the case with the resident. I agree with the resident's findings and plan as documented. SUBJECTIVE: currently asymptomatic. states her swelling in her feet have improved but remains more edematous than baseline. denies Cp, SOB,fever, chills , abdominal pain, N/V/C/D OBJECTIVE: Last Vital Signs Temp Pulse Resp BP Pulse Ox 98.3 F 90 20 139/79 98 05/03/16 10:00 05/03/16 10:00 05/03/16 10:00 05/03/16 10:00 05/03/16 09:00 Intake & Output 04/30/16 05/01/16 05/02/16 05/03/16 23:59 23:59 23:59 23:59 Intake Total 400 1500 Output Total 0 0 2 Balance 400 1500 -2 Weight 162 lb 14.746 oz 154 lb 7 oz 158 lb 9 oz General NAD Abdomen soft NT/ND no biggs sign. obese Extremities 1+ pitting edema CBCD WBC 8.6 K/mm3 (4.0-10.0) 05/03/16 07:15 RBC 3.76 M/mm3 (3.60-5.2) 05/03/16 07:15 Hgb 9.1 GM/dL (10.7-15.3) L 05/03/16 07:15 Hct 30.0 % (32.4-45.2) L 05/03/16 07:15 MCV 79.8 fl (80-96) L 05/03/16 07:15 MCHC 30.3 g/dl (32.0-36.0) L 05/03/16 07:15 RDW 20.5 % (11.6-15.6) H 05/03/16 07:15 Plt Count 270 K/MM3 (134-434) 05/03/16 07:15 MPV 9.1 fl (7.5-11.1) 05/03/16 07:15 CMP Sodium 132 mmol/L (136-145) L 05/03/16 07:15 Potassium 4.5 mmol/L (3.5-5.1) 05/03/16 07:15 Chloride 91 mmol/L (98-107) L 05/03/16 07:15 Carbon Dioxide 24 mmol/L (21-32) 05/03/16 07:15 Anion Gap 17 (8-16) H 05/03/16 07:15 BUN 40 mg/dL (7-18) H 05/03/16 07:15 Creatinine 4.8 mg/dL (0.55-1.02) H 05/03/16 07:15 Creat Clearance w eGFR 10.71 (>60) 05/02/16 05:20 Calcium 8.5 mg/dL (8.5-10.1) 05/03/16 07:15 Total Bilirubin 0.3 mg/dL (0.2-1.0) 05/03/16 07:15 AST 50 U/L (15-37) H D 05/03/16 07:15 ALT 61 U/L (12-78) D 05/03/16 07:15 Alkaline Phosphatase 925 U/L (45-117) H 05/03/16 07:15 Total Protein 7.4 g/dl (6.4-8.2) 05/03/16 07:15 Albumin 3.0 g/dl (3.4-5.0) L 05/03/16 07:15 ASSESSMENT AND PLAN: 25 yo F with a PMH of anemia, hypertension, PE 6 yrs ago s/p 6 mo course of coumadin, insulin dependent diabetes mellitus 1, end stage renal disease (on hemodialysis MWF), myosistis, osteomylities (right fifth digit on daily vanco) and seizure disorders presented to the ER and was admitted for further evaluation of their emergent condition 1. DKA- improved. on home dosing. will cont for now.bgm, iss, levemir 2. Elevated AG- possible volume contraction from HD yesterday. no signs of acidemia. HCO3 24. will repeat in the evening 3. Elevated alk phos- bone vs liver? had recent amputation for OM. abdominal u/ s pending. currently pt is asymptomatic. will check GGT 2. HTN- uncontrolled. several medication adjustment yesterday, clonidine increased. metoprolol switched to labetolol and norvasc swithced to nifedipine. remains above goal but overall improved. will monitor for now 3. ESRD on HD- (MWF). HD yesterday with good volume removal. however gained 4 lbs [address] water restrictions. no emergent need for HD> cont HD per nephrology 4. OM R 5th digit- +MRSA. on Vanco. level therapeutic. ESR remains elevated. will have podiatry evaluate as she has not been evaluated since last admission. cont current dosing. contact precautions. 5. DVT ppx- hep sq
[2016-05-03] MEDS: MUPIROCIN CA 2% TOPICAL CREAM 15 GM TUBE TP SCH ×3 (14:34→22:52)
[2016-05-03 14:42] LABS: ALBUMIN 3.1 g/dl (3.4-5.0); BILIRUBIN,TOTAL 0.4 mg/dL (0.2-1.0); CALCIUM 8.6 mg/dL (8.5-10.1); TOT PROT 7.5 g/dl (6.4-8.2)
[2016-05-04] MEDS: oxyCODONE HCL 5 MG TABLET PO PRN (01:42)
[2016-05-04] MEDS: ACETAMINOPHEN 325 MG TABLET (FP) PO PRN (01:43)
[2016-05-04] MEDS: INSULIN SLIDING SCALE (NOVOLOG) 1 VIAL SQ SCH ×4 (06:00→21:35)
[2016-05-04] MEDS: INSULIN DETEMIR 100 UNITS/ML MDV SQ SCH (06:00)
[2016-05-04] MEDS: GABAPENTIN 100 MG CAPSULE (FP) PO SCH ×3 (06:01→21:43)
[2016-05-04] MEDS: cloNIDine HCL 0.1 MG TABLET PO SCH ×3 (06:02→21:40)
[2016-05-04] MEDS: HEPARIN NA (PORCINE) 5,000 UNITS/ML 1ML VIAL SQ SCH ×4 (06:02→21:43)
[2016-05-04] MEDS ORDERED: EPOETIN ALFA 10,000 UNIT/1 ML VIAL IVPUSH ONE (09:45)
[2016-05-04 10:23] LABS: ALBUMIN 3.1 g/dl (3.4-5.0); BILIRUBIN,TOTAL 0.4 mg/dL (0.2-1.0); CALCIUM 8.7 mg/dL (8.5-10.1); CREATININE 6.9 mg/dL (0.55-1.02); MAGNESIUM 1.9 mg/dL (1.8-2.4); PHOSPHOROUS 7.3 mg/dL (2.5-4.9); TOT PROT 7.4 g/dl (6.4-8.2)
[2016-05-04] MEDS ORDERED: EPOETIN ALFA 20,000 UNIT/1 ML VIAL IVPUSH ONE (10:55)
--- NOTE | 2016-05-04 11:41 | PN ---
Progress Note (short form) - Note Progress Note: no complaints seen at HD BP remains poorly controlled Vital Signs Period Temp Pulse Resp BP Sys/Ames Pulse Ox Last 24 Hr 97.6 F-98.4 F 84-96 18-20 113-194/64-117 96 cor-rrr lungs decrased bs at bases abd soft,nt ext +edema CBC, BMP 05/03/16 07:15 05/04/16 09:17 Laboratory Tests 03/26/16 05/03/16 05/03/16 06:30 07:15 07:15 ESR 47 H C-Reactive Protein 11.4 H D 1.4 H D a/p volume overload poorly controlled diabetes poorly controlled HTN MRSA osteo- day #40 crp improved esr improved will speak with cleaning attendant tomorrow continue vancomycin another 2 weeks, then d/c (total 8 weeks) topical mupirocin overall her poorly controlled DM and edema diminish her chances of wound healing she is poorly compliant with all her care, had not seen wound care in several weeks and could not participate in HBO due to volume overload! please call back if needed I spoke with renal regarding continuing vanco for another two weeks
[2016-05-04] MEDS ORDERED: VANCOMYCIN 1 GRAM (PRE-DOCKED) 250 ML IVPB ONE (11:54)
[2016-05-04] MEDS: MUPIROCIN CA 2% TOPICAL CREAM 15 GM TUBE TP SCH ×3 (14:15→21:39)
[2016-05-04] MEDS: POLYETHYLENE GLYCOL 3350 119 GM BTL PO SCH (14:15)
[2016-05-04] MEDS: LABETALOL HCL 200 MG TABLET (FP) PO SCH ×2 (14:16→21:40)
[2016-05-04] MEDS: amLODIPine BESYLATE 10 MG TABLET (FP) PO SCH (14:17)
--- NOTE | 2016-05-04 14:56 | PN ---
Physical Exam: SUBJECTIVE: Patient seen and examined Patietn resting in bed comfortably NAD. No acute events overnight. afebrile but hypertensive 161/111. Refusing procardia due to severe dizziness. tolerating diet, denies nausea or vomiting. chest tightness and orthopnea resolved. Her LE edema is better. denies dizziness, chest pain, palpitations, sob, h/a, and pain or diarrhea. reports some constipation despite laxatives. In HD today with procrit and vanco OBJECTIVE: Vital Signs Period Temp Pulse Resp BP Sys/Ames Pulse Ox Last 24 Hr 97.6 F-98.4 F 84-100 16-20 121-194/74-117 96 GENERAL: Awake, alert, and fully oriented, in no acute distress. HEAD: Normal with no signs of trauma. EYES: Pupils equal, round and reactive to light, extraocular movements intact, sclera anicteric, conjunctiva clear. EARS, NOSE, THROAT: Moist mucous membranes. NECK: supple LUNGS: Breath sounds equal, clear to auscultation bilaterally. HEART: Regular rate and rhythm, normal S1 and S2 ABDOMEN: Soft, nontender, not distended, normoactive bowel sounds, MUSCULOSKELETAL: No CVA tenderness. UPPER EXTREMITIES: 2+ pulses, warm, well-perfused. No peripheral edema. LOWER EXTREMITIES: 2+ pulses, warm, well-perfused. No calf tenderness. 1+ peripheral edema, improved . NEUROLOGICAL: Cranial nerves II-XII grossly intact. Normal speech. PSYCHIATRIC: Cooperative. Good eye contact. Appropriate mood and affect. SKIN: Warm, dry, Laboratory Results - last 24 hr 05/01/16 05/03/16 05/03/16 12:36 06:24 13:22 Sodium 135 L Potassium 3.8 Chloride 91 L Carbon Dioxide 29 D Anion Gap 15 BUN 41 H Creatinine 5.0 H Creat Clearance w eGFR 10.46 POC Glucometer > 400 429 Random Glucose 79 D Calcium 8.6 Phosphorus Magnesium Total Bilirubin 0.4 D GGT 466 H D AST 38 H D ALT 54 Alkaline Phosphatase 876 H Total Protein 7.5 Albumin 3.1 L 05/03/16 05/03/16 05/04/16 18:02 20:42 05:38 Sodium Potassium Chloride Carbon Dioxide Anion Gap BUN Creatinine Creat Clearance w eGFR POC Glucometer 253 295 355 Random Glucose Calcium Phosphorus Magnesium Total Bilirubin GGT AST ALT Alkaline Phosphatase Total Protein Albumin 05/04/16 05/04/16 09:17 14:14 Sodium 134 L Potassium 4.6 D Chloride 94 L Carbon Dioxide 23 D Anion Gap 17 H BUN 73 H D Creatinine 6.9 H D Creat Clearance w eGFR 7.21 POC Glucometer 118 Random Glucose 121 H D Calcium 8.7 Phosphorus 7.3 H D Magnesium 1.9 Total Bilirubin 0.4 GGT AST 41 H ALT 52 Alkaline Phosphatase 880 H Total Protein 7.4 Albumin 3.1 L Active Medications Generic Name Dose Route Start Last Admin Trade Name Freq PRN Reason Stop Dose Admin Acetaminophen 325 mg 05/02/16 17:01 05/04/16 01:43 Tylenol - PO 325 mg Q6H PRN Administration PAIN Amlodipine Besylate 10 mg 05/04/16 12:30 05/04/16 14:17 Norvasc - PO 10 mg DAILY [facility] Administration Clonidine 0.6 mg 05/02/16 08:08 05/04/16 14:17 Catapres - PO 0.6 mg TID [facility] Administration Gabapentin 100 mg 05/02/16 22:00 05/04/16 14:18 Neurontin - PO 100 mg TID [facility] Administration Heparin Sodium (Porcine) 5,000 unit 05/02/16 22:00 05/04/16 14:21 Heparin - SQ Not Given TID [facility] Insulin Aspart 1 vial 05/02/16 22:00 05/04/16 14:17 Novolog Vial Sliding Scale - SQ Not Given ACHS [facility] Protocol Insulin Detemir 15 units 05/03/16 07:00 05/04/16 06:00 Levemir Vial SQ 15 units AM [facility] Administration Labetalol HCl 400 mg 05/02/16 22:00 05/04/16 14:16 Normodyne - PO 400 mg BID [facility] Administration Mupirocin 1 applic 05/03/16 10:00 05/04/16 14:22 Bactroban 2% Cream - TP Not Given BID [facility] Oxycodone HCl 5 mg 05/02/16 17:01 05/04/16 01:42 Roxicodone - PO 5 mg Q6H PRN Administration PAIN Polyethylene Glycol 17 gm 05/03/16 11:00 05/04/16 14:15 Miralax (For Daily Use) - PO 17 grams DAILY [facility] Administration ASSESSMENT/PLAN: This is a 25 yo F with a PMH of anemia, hypertension, PE 6 yrs ago s/p 6 mo course of coum, insulin dependent diabetes mellitus 1, end stage renal disease ( on hemodialysis MWF), myosistis, osteomylities (right fifth digit on daily vanco ) and seizure disorders who presents to the emergency department due to SOB. She states that she is sob due to volume overloading. Found to be in dka DKA in setting of IDDM1 -medication noncompiant at home -diet noncompliant -glucose admission 700, gap 16 -was in ICU on insulin drip, gap closed was xferred to floor -tolerating PO, asymptomatic -glucose this morning 355, no gap -levemir 15 u am, sliding scale requiring 32 u yesterday ESRD -DH MWF -volume overloaded >10kg over dry weight on admission -Renal consulted -DHD today with vanco and procrit -renal diet -1L fluid restriction Diabetic R foot ulcer/osteomyelitis -vanco day 40 daily 1 gm after HD. trough therapeutic -daily trough and dose adjustment -ID consult -podiatry consult HTN -clonidine 0.6 tid, labetalol -intolerant of procardia due to dizziness -add norvasc 10 Elevated alk phos -close to 1000 -abd US: hempatomegaly, mild GB sludge -GTT elevated 466 -Gi consult Constipation -miralax FEN 1L fluid restrict lytes stable DVT Gi PPX: PPI, HEp, scd Dispo: monitor in med surge Problem List - Problems (1) Acute respiratory failure Code(s): J96.00 - ACUTE RESPIRATORY FAILURE, UNSP W HYPOXIA OR HYPERCAPNIA (2) Diabetic ketoacidosis with coma associated with type 1 diabetes mellitus Code(s): E10.11 - TYPE 1 DIABETES MELLITUS WITH KETOACIDOSIS WITH COMA (3) Fluid overload Code(s): E87.70 - FLUID OVERLOAD, UNSPECIFIED Qualifiers: Hypervolemia type: unspecified Qualified Code(s): E87.70 - Fluid overload, unspecified (4) History of pulmonary embolus (PE) Code(s): Z86.711 - PERSONAL HISTORY OF PULMONARY EMBOLISM (5) Hyperglycemia due to type 1 diabetes mellitus Code(s): E10.65 - TYPE 1 DIABETES MELLITUS WITH HYPERGLYCEMIA (6) Leukocytosis Code(s): D72.829 - ELEVATED WHITE BLOOD CELL COUNT, UNSPECIFIED (7) Osteomyelitis due to type 1 diabetes mellitus Code(s): E10.69 - TYPE 1 DIABETES MELLITUS WITH OTHER SPECIFIED COMPLICATION M86.9 - OSTEOMYELITIS, UNSPECIFIED (8) ESRD (end stage renal disease) on dialysis Code(s): N18.6 - END STAGE RENAL DISEASE Z99.2 - DEPENDENCE ON RENAL DIALYSIS (9) Diabetes mellitus, insulin dependent (IDDM), uncontrolled Code(s): E10.65 - TYPE 1 DIABETES MELLITUS WITH HYPERGLYCEMIA (10) Diabetic foot infection Code(s): E11.69 - TYPE 2 DIABETES MELLITUS WITH OTHER SPECIFIED COMPLICATION L08.9 - LOCAL INFECTION OF THE SKIN AND SUBCUTANEOUS TISSUE, UNSP (11) Diabetic foot ulcer Code(s): E11.621 - TYPE 2 DIABETES MELLITUS WITH FOOT ULCER L97.509 - NON-PRESSURE CHRONIC ULCER OTH PRT UNSP FOOT W UNSP SEVERITY Qualifiers: Diabetes mellitus type: type 1 Laterality: right Qualified Code(s) : E10.621 - Type 1 diabetes mellitus with foot ulcer; L97.519 - Non-pressure chronic ulcer of other part of right foot with unspecified severity (12) Open wound of foot Code(s): S91.309A - UNSPECIFIED OPEN WOUND, UNSPECIFIED FOOT, INITIAL ENCOUNTER (13) Osteomyelitis Code(s): M86.9 - OSTEOMYELITIS, UNSPECIFIED Qualifiers: Osteomyelitis location: foot Laterality: right Chronicity: acute Qualified Code(s): M86.171 - Other acute osteomyelitis, right ankle and foot (14) Dialysis patient Code(s): Z99.2 - DEPENDENCE ON RENAL DIALYSIS (15) HTN (hypertension) Code(s): I10 - ESSENTIAL (PRIMARY) HYPERTENSION (16) Hyperkalemia Code(s): E87.5 - HYPERKALEMIA Visit type - Emergency Visit Emergency Visit: Yes ED Registration Date: 05/01/16 Care time: The patient presented to the Emergency Department on the above date and was hospitalized for further evaluation of their emergent condition. - New Patient This patient is new to me today: No - Critical Care Critical Care patient: No - Discharge Referral Referred to [facility] Med P.C.: No
[2016-05-04] MEDS: NIFEdipine E.R 60 MG TABLET (UD) PO SCH (15:18)
--- NOTE | 2016-05-04 16:19 | PN ---
Teaching Attending Note Name of Resident: Nurys Phoenix ATTENDING PHYSICIAN STATEMENT I saw and evaluated the patient. I reviewed the resident's note and discussed the case with the resident. I agree with the resident's findings and plan as documented. SUBJECTIVE:states she was feeling dizzy all day yesterday after her medications. she had similar episode in the past when placed on nifedipine. denies CP, SOB,fever, chills, N/V/C/D OBJECTIVE: Last Vital Signs Temp Pulse Resp BP Pulse Ox 98.2 F 84 16 150/116 96 05/04/16 14:02 05/04/16 14:02 05/04/16 14:02 05/04/16 14:02 05/04/16 09:00 General NAD Abdomen soft NT/ND no rebound or guarding ASSESSMENT AND PLAN: 25 yo F with a PMH of anemia, hypertension, PE 6 yrs ago s/p 6 mo course of coumadin, insulin dependent diabetes mellitus 1, end stage renal disease (on hemodialysis MWF), myosistis, osteomylities (right fifth digit on daily vanco) and seizure disorders presented to the ER and was admitted for further evaluation of their emergent condition 1. DKA-sugars are labile, difficult starting on standing coverage for bgm. monitor for now consider starting coverage. will cont for now.bgm, iss, levemir 2. Elevated AG- possible volume contraction from HD yesterday. no signs of acidemia. HCO3 24. will repeat in the evening 3. Elevated alk phos- bone vs liver? had recent amputation for OM. abdominal u/ s negative, GGT elevated. would likely benefit from MRCP however risk with kidney function will consult GI if further workup is waranted inpatient. currently pt is asymptomatic. 2. HTN- uncontrolled. switch nifedipine to norvasc due to intolerance. will monitor and increase clonidine if BP remains elevated. 3. ESRD on HD- (MWF). HD currently ongoing. cont HD per nephrology 4. OM R 5th digit- +MRSA. on Vanco. level therapeutic. ESR remains elevated. will have podiatry evaluate as she has not been evaluated since last admission. cont current dosing. contact precautions. 5. DVT ppx- hep sq
--- NOTE | 2016-05-04 18:46 | PN ---
Progress Note (short form) - Note Progress Note: Renal Follow up for ESRD on HD/Volume Overload Pt seen and examined during dialysis BP elevated, Goal UF is 4kg pt requesting more UF but advised that large volume UF could have negative impact on her heart access with good function Vital Signs Temperature 98.2 F 05/04/16 14:02 Pulse Rate 84 05/04/16 14:02 Respiratory Rate 16 05/04/16 14:02 Blood Pressure 150/116 05/04/16 14:02 O2 Sat by Pulse Oximetry (%) 96 05/04/16 09:00 Intake & Output 05/01/16 05/02/16 05/03/16 05/04/16 23:59 23:59 23:59 23:59 Intake Total 400 1500 1000 600 Output Total 0 0 2 Balance 400 1500 998 600 Weight 162 lb 14.746 oz 154 lb 7 oz 158 lb 9 oz Gen: NAD, awake and alert CVS: RRR, No M/R Lungs: CTA Abd: soft NT/ND Ext: >2+ edema in LE, no cyanosis of clubbing CBC, BMP 05/03/16 07:15 05/04/16 09:17 Current Medications Acetaminophen (Tylenol -) 325 mg PO Q6H PRN PRN Reason: PAIN Last Admin: 05/04/16 01:43 Dose: 325 mg Amlodipine Besylate (Norvasc -) 10 mg PO DAILY [facility] Last Admin: 05/04/16 14:17 Dose: 10 mg Clonidine (Catapres -) 0.6 mg PO TID [facility] Last Admin: 05/04/16 14:17 Dose: 0.6 mg Gabapentin (Neurontin -) 100 mg PO TID [facility] Last Admin: 05/04/16 14:18 Dose: 100 mg Heparin Sodium (Porcine) (Heparin -) 5,000 unit SQ TID [facility] Last Admin: 05/04/16 14:21 Dose: Not Given Insulin Aspart (Novolog Vial Sliding Scale -) 1 vial SQ ACHS [facility] PRN Reason: Protocol Last Admin: 05/04/16 17:00 Dose: 6 units Insulin Detemir (Levemir Vial) 15 units SQ AM [facility] Last Admin: 05/04/16 06:00 Dose: 15 units Labetalol HCl (Normodyne -) 400 mg PO BID [facility] Last Admin: 05/04/16 14:16 Dose: 400 mg Mupirocin (Bactroban 2% Cream -) 1 applic TP BID [facility] Last Admin: 05/04/16 14:22 Dose: Not Given Oxycodone HCl (Roxicodone -) 5 mg PO Q6H PRN PRN Reason: PAIN Last Admin: 05/04/16 01:42 Dose: 5 mg Polyethylene Glycol (Miralax (For Daily Use) -) 17 gm PO DAILY [facility] Last Admin: 05/04/16 14:15 Dose: 17 grams A/P 25 year old woman with PMhx of ESRD no HD (MWF), IDDM on insulin pump, Osteomylitis, Atrial thrombosis who presented to the ED with complains of sob and increasing leg swelling. #ESRD on HD/Hyperkalemia/Volume Overload Tolerating HD today with 4kg UF Plan for isolated UF tomorrow with goal 2.5kg UF #Uncontrolled Hypertension secondary to volume overload + underlying hypertension trend BP wit UF continue current meds and titrate as needed #Osteomylitis of the LE vanco to be continued with HD for total of 8 weeks #DKA/Hyperglycemia/IDDM on SC insulin pt education #CKD related Anemia Continue Epogen with HD Nathan Vo DO
--- NOTE | 2016-05-04 20:20 | CON.GI ---
Consult Consult Specialty:: GI Referred by:: Hospitalist Reason for Consultation:: Increased alk phos - History of Present Illness Chief Complaint: Abdominal pain and diarrhea History of Present Illness: 25 F with complicated PMH including anemia, hypertension, PE 6 yrs ago s/p 6 mo course of coumadin, poorly controlled DM, poorly controlled HTN, ESRD on HD, She is admitted with dyspnea likely secondary to fluid overload, as patient is non-compliant with meds and treatment. I am called to evaluate increased alk phos. Patient noted to have acute osteo r 5th toe diagnosed with bone biopsy. - History Source History Provided By: Patient, Medical Record Limitations to Obtaining History: No Limitations - Past Medical History Cardio/Vascular: Yes: HTN, Other (thrombus in heart per echo 11/2013; ? subclavian vein thromboses s/p dialysis catheters in the past) Pulmonary: Yes: Pulmonary Embolus Renal/: Yes: Renal Failure, Hemodialysis ...LMP: 10/02/15 Infectious Disease: Yes: MRSA (history of bacteremia, recent mrsa foot abscess) Endocrine: Yes: Diabetes Mellitus (type 1 on insulin pump) Additional Medical History: DVT, PE on coumadin - Past Surgical History Past Surgical History: Yes: AV Fistula/Graft (Right arm) - Alcohol/Substance Use Hx Alcohol Use: No History of Substance Use: reports: None, Marijuana (used to smoke marijuana in the past, hasn't used in many years) - Smoking History Smoking history: Never smoked Have you smoked in the past 12 months: No Aproximately how many cigarettes per day: 10 - Social History Usual Living Arrangement: With Parent ADL: Independent Occupation: unemployed History of Recent Travel: No Home Medications - Allergies Allergies/Adverse Reactions: Allergies Allergy/AdvReac Type Severity Reaction Status Date / Time No Known Drug Allergies Allergy Verified 05/01/16 06:34 - Home Medications Home Medications: Ambulatory Orders Sevelamer Carbonate [Renvela -] 800 mg PO TID 09/22/15 Oxycodone HCl/Acetaminophen [Percocet 5-325 mg Tablet] 1 tab PO Q6H PRN #10 tablet MDD 4 11/11/15 Amlodipine Besylate [Norvasc -] 10 mg PO DAILY 01/23/16 Clonidine HCl [Catapres -] 0.4 mg PO TID 02/29/16 Gabapentin 100 mg PO TID 12/07/16 Metoprolol Tartrate [Lopressor] 100 mg PO BID 03/21/16 Insulin Aspart [Novolog Flexpen] 3 unit SQ TID #10 ml 03/26/16 Insulin Detemir [Levemir Flextouch] 15 unit SQ AM #10 ml 03/26/16 Family Disease History - Family Disease History Family Disease History: Diabetes: Grandparent (HTN), Heart Disease: Grandparent , Other: Father (unknown), Mother (HTN) Physical Exam-GI Vital Signs: Vital Signs Temperature 98.3 F 05/04/16 16:20 Pulse Rate 88 05/04/16 16:20 Respiratory Rate 18 05/04/16 16:20 Blood Pressure 160/110 05/04/16 16:20 O2 Sat by Pulse Oximetry (%) 96 05/04/16 09:00 Constitutional: Yes: Thin HENT: Yes: Normocephalic Neck: Yes: Supple Cardiovascular: Yes: Regular Rate and Rhythm Respiratory: Yes: CTA Bilaterally Labs: CBC, BMP 05/03/16 07:15 05/04/16 09:17 Imaging - Results Ultrasound: Report Reviewed (hepatomegaly) Assessment/Plan 25 F with above history now with poorly controlled HTN and DM, fluid overload and osteo, with increased LFTs (AST 41 ALT 52 Alk phos 880) Alk phos is way out of proportion to other enzymes, likely secondary to osteo. As alk phos is made in bone, this is the likely source. Hepatomegaly and mildly elevated AST/ALT likely related to longstanding DM with GUEVARA and meds playing a role.Problem should resolve when osteo adequately treated. Hep B/C negative. Will check anti sm m AB to r/o autoimmune hep and AMA to r/o PBC
[2016-05-04] MEDS ORDERED: INSULIN (NOVOLOG) ASPART 100 UNITS/ML 10ML VIAL ONE (20:48)
[2016-05-04] MEDS: Insulin (LOG) Aspart 100 UNITS/ML VIAL SQ ONE (22:56)
[2016-05-05] MEDS: oxyCODONE HCL 5 MG TABLET PO PRN ×2 (00:11→13:15)
[2016-05-05] MEDS: ACETAMINOPHEN 325 MG TABLET (FP) PO PRN ×2 (00:13→13:16)
[2016-05-05] MEDS ORDERED: INSULIN DETEMIR 100 UNITS/ML MDV SQ ONE (06:18)
[2016-05-05] MEDS: HEPARIN NA (PORCINE) 5,000 UNITS/ML 1ML VIAL SQ SCH ×3 (06:29→21:40)
[2016-05-05] MEDS: cloNIDine HCL 0.1 MG TABLET PO SCH ×3 (06:29→21:35)
[2016-05-05] MEDS: GABAPENTIN 100 MG CAPSULE (FP) PO SCH ×3 (06:29→21:42)
[2016-05-05] MEDS: INSULIN DETEMIR 100 UNITS/ML MDV SQ SCH ×2 (06:29→21:41)
[2016-05-05] MEDS: INSULIN SLIDING SCALE (NOVOLOG) 1 VIAL SQ SCH ×4 (06:30→21:42)
[2016-05-05 07:58] LABS: MCH 24.4 pg (25.7-33.7); MEAN CELL VOLUME 78.9 fl (80-96); MEAN PLT VOLUME 8.9 fl (7.5-11.1); PLATELET COUNT 268 K/MM3 (134-434); RDW 20.3 % (11.6-15.6); WHITE BLOOD COUNT 9.2 K/mm3 (4.0-10.0)
[2016-05-05] MEDS ORDERED: hydrALAZINE HCL 20 MG/ML VIAL IVPUSH ONE (08:22)
[2016-05-05 08:56] LABS: ALBUMIN 3.1 g/dl (3.4-5.0); BILIRUBIN,TOTAL 0.5 mg/dL (0.2-1.0); CALCIUM 8.7 mg/dL (8.5-10.1); MAGNESIUM 1.8 mg/dL (1.8-2.4); PHOSPHOROUS 6.2 mg/dL (2.5-4.9); TOT PROT 7.5 g/dl (6.4-8.2)
--- NOTE | 2016-05-05 09:09 | CONSULT ---
Consult - text type - Consultation Consultation Note: Podiatry Consultation: 25 year old poorly controlled IDDM F, well [facility] , presents for admission for HD management and fluid overload, initial complaint of SOB. Patient is s/p R 5th toe bone biopsy 03/30, being treated with Vanco in HD. She notes improvement in appearance of 5th toe wound, however she has missed several appointments for wound care. She denies F/V/N/C/ SOB/CP. Currently afebrile, VSS. PMHx: poorly controlled IDDM, HTN, ESRD on HD Meds: noted in chart PSHx: R 5th toe bone biopsy ALL: NKMA CATRACHITA: R foot: pedal pulses palpable, TG wnl, CFT brisk to all toes. There is significant pitting edema to bilateral feet and lower legs. There is a wound medial 5th toe PIPJ, mostly granular base, no probing to bone, smaller in size since last evaluation, no purulent drainage, scant serous drainage, no fluctuance, no ascending cellulitis, no SOIs. Incision site well healed. WBC: 9.2 ESR: 47 CRP: 1.4 Imp: 25 year old IDDM F with R 5th toe DM ulcer and osteomyelitis, s/p 5th toe bone biopsy 03/20 1. Discussed case with ID Dr. Saha. CRP has reduced from 11.4 to 1.4 and ESR has reduced from >130 to 47. In lieu of improvement in clinical appearance and improvement in marker of osteo, no need for amputation at this juncture. Discussed with Dr. Saha, treating osteo for 2 more weeks via HD and then no more abx. Will watch [facility]. 2. I discussed again at length with patient regarding importance of glucose control. The patient has been consistently non-compliant and I warned her of risk of infection, complications with wound healing, loss of limb. 3. Bactroban and DSD to R foot daily. 4. Will follow in [facility]. Thank you for the courtesy of this consultation. Delfino Dubon DPM
[2016-05-05] MEDS ORDERED: PT OWN MED DRAWER 7, Y5N ONE (10:20)
[2016-05-05] MEDS: MUPIROCIN CA 2% TOPICAL CREAM 15 GM TUBE TP SCH ×2 (10:30→21:40)
[2016-05-05] MEDS: POLYETHYLENE GLYCOL 3350 119 GM BTL PO SCH (10:33)
[2016-05-05] MEDS: LABETALOL HCL 200 MG TABLET (FP) PO SCH ×2 (10:34→21:42)
[2016-05-05] MEDS: amLODIPine BESYLATE 10 MG TABLET (FP) PO SCH (10:34)
--- NOTE | 2016-05-05 11:31 | PN ---
Progress Note (short form) - Note Progress Note: Renal Follow up for ESRD on HD/Volume Overload Pt seen and examined during Isolated UF Tolerated 3.4kg UF no acute complaints Vital Signs Temperature 97.5 F L 05/05/16 10:58 Pulse Rate 92 H 05/05/16 10:58 Respiratory Rate 20 05/05/16 10:58 Blood Pressure 146/109 05/05/16 10:58 O2 Sat by Pulse Oximetry (%) 98 05/05/16 09:00 Intake & Output 05/02/16 05/03/16 05/04/16 05/05/16 23:59 23:59 23:59 23:59 Intake Total 1500 1000 850 Output Total 0 2 Balance 1500 998 850 Weight 154 lb 7 oz 158 lb 9 oz Gen: NAD, awake and alert CVS: RRR, No M/R Lungs: CTA Abd: soft NT/ND Ext: >2+ edema in LE, no cyanosis of clubbing CBC, BMP 05/05/16 07:10 05/05/16 07:10 Current Medications Acetaminophen (Tylenol -) 325 mg PO Q6H PRN PRN Reason: PAIN Last Admin: 05/05/16 00:13 Dose: 325 mg Amlodipine Besylate (Norvasc -) 10 mg PO DAILY [facility] Last Admin: 05/05/16 10:34 Dose: 10 mg Clonidine (Catapres -) 0.6 mg PO TID [facility] Last Admin: 05/05/16 06:29 Dose: 0.6 mg Gabapentin (Neurontin -) 100 mg PO TID [facility] Last Admin: 05/05/16 06:29 Dose: 100 mg Heparin Sodium (Porcine) (Heparin -) 5,000 unit SQ TID [facility] Last Admin: 05/05/16 06:29 Dose: Not Given Insulin Aspart (Novolog Vial Sliding Scale -) 1 vial SQ ACHS [facility] PRN Reason: Protocol Last Admin: 05/05/16 06:30 Dose: 10 units Insulin Aspart (Novolog) 5 units SQ ONCE ONE Stop: 05/05/16 22:38 Last Admin: 05/04/16 22:56 Dose: 5 units Insulin Detemir (Levemir Vial) 15 units SQ AM [facility] Last Admin: 05/05/16 06:29 Dose: 15 units Labetalol HCl (Normodyne -) 400 mg PO BID [facility] Last Admin: 05/05/16 10:34 Dose: 400 mg Mupirocin (Bactroban 2% Cream -) 1 applic TP BID [facility] Last Admin: 05/05/16 10:30 Dose: Not Given Oxycodone HCl (Roxicodone -) 5 mg PO Q6H PRN PRN Reason: PAIN Last Admin: 05/05/16 00:11 Dose: 5 mg Polyethylene Glycol (Miralax (For Daily Use) -) 17 gm PO DAILY [facility] Last Admin: 05/05/16 10:33 Dose: 17 grams A/P 25 year old woman with PMhx of ESRD no HD (MWF), IDDM on insulin pump, Osteomylitis, Atrial thrombosis who presented to the ED with complains of sob and increasing leg swelling. #ESRD on HD/Hyperkalemia/Volume Overload s/p isolated UF today plan for regular HD tomorrow with UF as tolerated #Uncontrolled Hypertension secondary to volume overload + underlying hypertension trend BP wit UF continue current meds and titrate as needed #Osteomylitis of the LE vanco to be continued with HD for total of 8 weeks #DKA/Hyperglycemia/IDDM on SC insulin pt education #CKD related Anemia Continue Epogen with HD Nathan Vo DO
--- NOTE | 2016-05-05 11:40 | PN ---
<Nurys Phoenix - Last Filed: 05/05/16 11:57> Physical Exam: SUBJECTIVE: Patient seen and examined Patientresting in bed comfortably NAD. No acute events overnight. afebrile but hypertensive 192/127. s/p HD yesterday and getting UF today to remove 3.5 L. stopped procardia 60 yesterday due to dizziness and started nifedipine 10. Glucose seems to be poorly controlled in lm AM, today 473. Patient states that seh snacks on sandwiches and dayday crackers at night, She is tolerating diet, denies nausea or vomiting. chest tightness and orthopnea resolved. Her LE edema is better. denies dizziness, chest pain, palpitations, sob, h/a, and pain or diarrhea. reports having a BM today. OBJECTIVE: Vital Signs Period Temp Pulse Resp BP Sys/Ames Pulse Ox Last 24 Hr 97.4 F-98.3 F 84-100 16-20 146-198/101-127 98-98 GENERAL: Awake, alert, and fully oriented, in no acute distress. HEAD: Normal with no signs of trauma. EYES: Pupils equal, round and reactive to light, extraocular movements intact, sclera anicteric, conjunctiva clear. EARS, NOSE, THROAT: Moist mucous membranes. NECK: supple LUNGS: Breath sounds equal, clear to auscultation bilaterally. HEART: Regular rate and rhythm, normal S1 and S2 ABDOMEN: Soft, nontender, not distended, normoactive bowel sounds, MUSCULOSKELETAL: No CVA tenderness. UPPER EXTREMITIES: 2+ pulses, warm, well-perfused. No peripheral edema. LOWER EXTREMITIES: 2+ pulses, warm, well-perfused. No calf tenderness. 1+ peripheral edema, improved . NEUROLOGICAL: Cranial nerves II-XII grossly intact. Normal speech. PSYCHIATRIC: Cooperative. Good eye contact. Appropriate mood and affect. SKIN: Warm, dry, Laboratory Results - last 24 hr 05/04/16 05/04/16 05/04/16 14:14 16:59 21:30 WBC RBC Hgb Hct MCV MCHC RDW Plt Count MPV Sodium Potassium Chloride Carbon Dioxide Anion Gap BUN Creatinine Creat Clearance w eGFR POC Glucometer 118 300 469 Random Glucose Calcium Phosphorus Magnesium Total Bilirubin AST ALT Alkaline Phosphatase Total Protein Albumin Vancomycin Trough 05/04/16 05/05/16 05/05/16 21:52 06:15 07:10 WBC 9.2 RBC 3.59 L Hgb 8.8 L Hct 28.3 L MCV 78.9 L MCHC 31.0 L RDW 20.3 H Plt Count 268 MPV 8.9 Sodium Potassium Chloride Carbon Dioxide Anion Gap BUN Creatinine Creat Clearance w eGFR POC Glucometer 351 Random Glucose 473 H* D Calcium Phosphorus Magnesium Total Bilirubin AST ALT Alkaline Phosphatase Total Protein Albumin Vancomycin Trough 05/05/16 05/05/16 07:10 07:10 WBC RBC Hgb Hct MCV MCHC RDW Plt Count MPV Sodium 133 L Potassium 4.5 Chloride 93 L Carbon Dioxide 24 Anion Gap 16 BUN 56 H D Creatinine 5.0 H D Creat Clearance w eGFR 10.46 POC Glucometer Random Glucose 338 H* D Calcium 8.7 Phosphorus 6.2 H Magnesium 1.8 Total Bilirubin 0.5 D AST 68 H D ALT 56 Alkaline Phosphatase 864 H Total Protein 7.5 Albumin 3.1 L Vancomycin Trough 18.299 H* Active Medications Generic Name Dose Route Start Last Admin Trade Name Freq PRN Reason Stop Dose Admin Acetaminophen 325 mg 05/02/16 17:01 05/05/16 00:13 Tylenol - PO 325 mg Q6H PRN Administration PAIN Amlodipine Besylate 10 mg 05/04/16 12:30 05/05/16 10:34 Norvasc - PO 10 mg DAILY [facility] Administration Clonidine 0.6 mg 05/02/16 08:08 05/05/16 06:29 Catapres - PO 0.6 mg TID [facility] Administration Epoetin Abiel 10,000 unit 05/06/16 09:00 Procrit - IVPUSH 05/06/16 09:01 ONCE ONE Gabapentin 100 mg 05/02/16 22:00 05/05/16 06:29 Neurontin - PO 100 mg TID [facility] Administration Heparin Sodium (Porcine) 5,000 unit 05/02/16 22:00 05/05/16 06:29 Heparin - SQ Not Given TID [facility] Vancomycin HCl 1,000 mg/ 250 mls @ 200 mls/hr 05/06/16 09:00 Dextrose IVPB 05/06/16 10:14 ONCE ONE Insulin Aspart 1 vial 05/02/16 22:00 05/05/16 06:30 Novolog Vial Sliding Scale - SQ 10 units ACHS [facility] Administration Protocol Insulin Aspart 5 units 05/05/16 22:37 05/04/16 22:56 Novolog SQ 05/05/16 22:38 5 units ONCE ONE Administration Insulin Detemir 15 units 05/03/16 07:00 05/05/16 06:29 Levemir Vial SQ 15 units AM [facility] Administration Labetalol HCl 400 mg 05/02/16 22:00 05/05/16 10:34 Normodyne - PO 400 mg BID [facility] Administration Mupirocin 1 applic 05/03/16 10:00 05/05/16 10:30 Bactroban 2% Cream - TP Not Given BID [facility] Oxycodone HCl 5 mg 05/02/16 17:01 05/05/16 00:11 Roxicodone - PO 5 mg Q6H PRN Administration PAIN Polyethylene Glycol 17 gm 05/03/16 11:00 05/05/16 10:33 Miralax (For Daily Use) - PO 17 grams DAILY [facility] Administration ASSESSMENT/PLAN: This is a 25 yo F with a PMH of anemia, hypertension, PE 6 yrs ago s/p 6 mo course of coum, insulin dependent diabetes mellitus 1, end stage renal disease ( on hemodialysis MWF), myosistis, osteomylities (right fifth digit on daily vanco ) and seizure disorders who presents to the emergency department due to SOB. She states that she is sob due to volume overloading. Found to be in dka DKA in setting of IDDM1 -medication noncompiant at home -diet noncompliant -glucose admission 700, gap 16 -was in ICU on insulin drip, gap closed was xferred to floor -tolerating PO, asymptomatic -glucose this morning 473, usually high in lm morning because patient stacks at night on carb rich foods. -adjust levemir 15 u BID ESRD -DH MWF -volume overloaded >10kg over dry weight on admission -Renal consulted -HD yesterday with vanco and procrit, UF today -3.5L -renal diet -1L fluid restriction Diabetic R foot ulcer/osteomyelitis -vanco day 41 daily 1 gm after HD. trough therapeutic -daily trough and dose adjustment -ID consult -podiatry consult HTN -clonidine 0.6 tid, labetalol -intolerant of procardia 60 due to dizziness -added norvasc 10 but BP poorly controlled -oscar recheck after UF and may start procardia 30 Elevated alk phos -close to 1000 -abd US: hempatomegaly, mild GB sludge -GTT elevated 466 -Gi consult appreciated: likely source from osteo Constipation -miralax -resolved FEN 1L fluid restrict lytes stable DVT Gi PPX: PPI, HEp, scd Dispo: monitor in med surge Problem List - Problems (1) Acute respiratory failure Code(s): J96.00 - ACUTE RESPIRATORY FAILURE, UNSP W HYPOXIA OR HYPERCAPNIA (2) Diabetic ketoacidosis with coma associated with type 1 diabetes mellitus Code(s): E10.11 - TYPE 1 DIABETES MELLITUS WITH KETOACIDOSIS WITH COMA (3) Fluid overload Code(s): E87.70 - FLUID OVERLOAD, UNSPECIFIED Qualifiers: Hypervolemia type: unspecified Qualified Code(s): E87.70 - Fluid overload, unspecified (4) History of pulmonary embolus (PE) Code(s): Z86.711 - PERSONAL HISTORY OF PULMONARY EMBOLISM (5) Hyperglycemia due to type 1 diabetes mellitus Code(s): E10.65 - TYPE 1 DIABETES MELLITUS WITH HYPERGLYCEMIA (6) Leukocytosis Code(s): D72.829 - ELEVATED WHITE BLOOD CELL COUNT, UNSPECIFIED (7) Osteomyelitis due to type 1 diabetes mellitus Code(s): E10.69 - TYPE 1 DIABETES MELLITUS WITH OTHER SPECIFIED COMPLICATION M86.9 - OSTEOMYELITIS, UNSPECIFIED (8) ESRD (end stage renal disease) on dialysis Code(s): N18.6 - END STAGE RENAL DISEASE Z99.2 - DEPENDENCE ON RENAL DIALYSIS (9) Diabetes mellitus, insulin dependent (IDDM), uncontrolled Code(s): E10.65 - TYPE 1 DIABETES MELLITUS WITH HYPERGLYCEMIA (10) Diabetic foot infection Code(s): E11.69 - TYPE 2 DIABETES MELLITUS WITH OTHER SPECIFIED COMPLICATION L08.9 - LOCAL INFECTION OF THE SKIN AND SUBCUTANEOUS TISSUE, UNSP (11) Diabetic foot ulcer Code(s): E11.621 - TYPE 2 DIABETES MELLITUS WITH FOOT ULCER L97.509 - NON-PRESSURE CHRONIC ULCER OTH PRT UNSP FOOT W UNSP SEVERITY Qualifiers: Diabetes mellitus type: type 1 Laterality: right Qualified Code( s): E10.621 - Type 1 diabetes mellitus with foot ulcer; L97.519 - Non-pressure chronic ulcer of other part of right foot with unspecified severity (12) Open wound of foot Code(s): S91.309A - UNSPECIFIED OPEN WOUND, UNSPECIFIED FOOT, INITIAL ENCOUNTER (13) Osteomyelitis Code(s): M86.9 - OSTEOMYELITIS, UNSPECIFIED Qualifiers: Osteomyelitis location: foot Laterality: right Chronicity: acute Qualified Code(s): M86.171 - Other acute osteomyelitis, right ankle and foot (14) Dialysis patient Code(s): Z99.2 - DEPENDENCE ON RENAL DIALYSIS (15) HTN (hypertension) Code(s): I10 - ESSENTIAL (PRIMARY) HYPERTENSION (16) Hyperkalemia Code(s): E87.5 - HYPERKALEMIA Visit type - Emergency Visit Emergency Visit: Yes ED Registration Date: 05/01/16 Care time: The patient presented to the Emergency Department on the above date and was hospitalized for further evaluation of their emergent condition. - New Patient This patient is new to me today: No - Critical Care Critical Care patient: No - Discharge Referral Referred to [facility] No <Maulik Gregory - Last Filed: 05/05/16 18:55> Physical Exam: ATTENDING PHYSICIAN STATEMENT I saw and evaluated the patient. I reviewed the resident's note and discussed the case with the resident. I agree with the resident's findings and plan as documented. SUBJECTIVE: seen and evaluated at the bedside OBJECTIVE: resting comfortably; no rales on exam ASSESSMENT AND PLAN: 25 yo F with a PMH of anemia, hypertension, PE 6 yrs ago s/p 6 mo course of coum , insulin dependent diabetes mellitus 1, end stage renal disease (on chronic hemodialysis MWF), myosistis, osteomylities (right fifth digit on daily vanco) and seizure disorders admitted for pulmonary edema Pulm Edema -due to volume overload from ESRD -has been getting ultra-filtration in addition to dialysis -another 3.4 liters removed today -lungs clear on exam HTN -BP better controlled this afternoon after ultrafiltration -cont labetalol, clonidine, and amlodipine -cont to trend DM -sugars better controlled in the afternoon -change levemir to BID -cont sliding scale insulin
[2016-05-05] MEDS: Insulin (LOG) Aspart 100 UNITS/ML VIAL SQ ONE (23:00)
[2016-05-06] MEDS: ACETAMINOPHEN 325 MG TABLET (FP) PO PRN (01:42)
[2016-05-06] MEDS: oxyCODONE HCL 5 MG TABLET PO PRN ×2 (01:43→14:48)
[2016-05-06] MEDS: cloNIDine HCL 0.1 MG TABLET PO SCH ×3 (06:08→21:20)
[2016-05-06] MEDS: GABAPENTIN 100 MG CAPSULE (FP) PO SCH ×3 (06:09→21:21)
[2016-05-06] MEDS: HEPARIN NA (PORCINE) 5,000 UNITS/ML 1ML VIAL SQ SCH ×5 (06:11→21:36)
[2016-05-06] MEDS: INSULIN DETEMIR 100 UNITS/ML MDV SQ SCH (06:11)
[2016-05-06] MEDS: INSULIN SLIDING SCALE (NOVOLOG) 1 VIAL SQ SCH ×4 (06:11→21:34)
[2016-05-06 08:24] LABS: MCH 24.1 pg (25.7-33.7); MCHC 30.6 g/dl (32.0-36.0); MEAN CELL VOLUME 78.7 fl (80-96); MEAN PLT VOLUME 8.7 fl (7.5-11.1); PLATELET COUNT 260 K/MM3 (134-434); RDW 19.9 % (11.6-15.6); WHITE BLOOD COUNT 8.9 K/mm3 (4.0-10.0)
[2016-05-06] MEDS ORDERED: VANCOMYCIN 1,000 MG in DEXTROSE 5%-WATER - 250 ML IVPB ONE (09:00)
[2016-05-06] MEDS ORDERED: EPOETIN ALFA 10,000 UNIT/1 ML VIAL IVPUSH ONE (09:00)
[2016-05-06 09:25] LABS: BILIRUBIN,TOTAL 0.5 mg/dL (0.2-1.0); CREATININE 6.8 mg/dL (0.55-1.02); TOT PROT 7.5 g/dl (6.4-8.2)
[2016-05-06 09:35] LABS: ALBUMIN 3.1 g/dl (3.4-5.0); CALCIUM 8.3 mg/dL (8.5-10.1)
[2016-05-06] MEDS: MUPIROCIN CA 2% TOPICAL CREAM 15 GM TUBE TP SCH ×3 (09:54→21:34)
[2016-05-06] MEDS: LABETALOL HCL 200 MG TABLET (FP) PO SCH ×4 (09:55→21:19)
[2016-05-06] MEDS: amLODIPine BESYLATE 10 MG TABLET (FP) PO SCH ×3 (09:55→12:00)
[2016-05-06] MEDS: POLYETHYLENE GLYCOL 3350 119 GM BTL PO SCH (09:55)
--- NOTE | 2016-05-06 11:41 | PN ---
Progress Note (short form) - Note Progress Note: Renal Follow up for ESRD on HD/Volume Overload Pt seen and examined during dialysis BP 160/112, Goal UF is 3.5L Will get oral BP meds now as bp is high pt without complaints Vital Signs Temperature 98.2 F 05/06/16 07:20 Pulse Rate 88 05/06/16 08:20 Respiratory Rate 18 05/06/16 08:20 Blood Pressure 165/112 05/06/16 08:20 O2 Sat by Pulse Oximetry (%) 98 05/05/16 21:00 Intake & Output 05/03/16 05/04/16 05/05/16 05/06/16 23:59 23:59 23:59 23:59 Intake Total 2581 249 2264 Output Total 2 Balance 191 734 2712 Weight 158 lb 9 oz Gen: NAD, awake and alert CVS: RRR, No M/R Lungs: CTA Abd: soft NT/ND Ext: >2+ edema in LE, no cyanosis of clubbing CBC, BMP 05/06/16 06:15 05/06/16 06:15 Current Medications Acetaminophen (Tylenol -) 325 mg PO Q6H PRN PRN Reason: PAIN Last Admin: 05/06/16 01:42 Dose: 325 mg Amlodipine Besylate (Norvasc -) 10 mg PO DAILY [facility] Last Admin: 05/06/16 10:33 Dose: 10 mg Clonidine (Catapres -) 0.6 mg PO TID [facility] Last Admin: 05/06/16 06:08 Dose: 0.6 mg Gabapentin (Neurontin -) 100 mg PO TID [facility] Last Admin: 05/06/16 06:09 Dose: 100 mg Heparin Sodium (Porcine) (Heparin -) 5,000 unit SQ TID [facility] Last Admin: 05/06/16 06:11 Dose: Not Given Insulin Aspart (Novolog Vial Sliding Scale -) 1 vial SQ ACHS [facility] PRN Reason: Protocol Last Admin: 05/06/16 06:11 Dose: 2 units Insulin Detemir (Levemir Vial) 15 units SQ BID@0700,2200 [facility] Last Admin: 05/06/16 06:11 Dose: 15 unit Labetalol HCl (Normodyne -) 400 mg PO BID [facility] Last Admin: 05/06/16 10:33 Dose: 400 mg Mupirocin (Bactroban 2% Cream -) 1 applic TP BID [facility] Last Admin: 05/06/16 09:54 Dose: Not Given Oxycodone HCl (Roxicodone -) 5 mg PO Q6H PRN PRN Reason: PAIN Last Admin: 05/06/16 01:43 Dose: 5 mg Polyethylene Glycol (Miralax (For Daily Use) -) 17 gm PO DAILY [facility] Last Admin: 05/06/16 09:55 Dose: Not Given A/P 25 year old woman with PMhx of ESRD no HD (MWF), IDDM on insulin pump, Osteomylitis, Atrial thrombosis who presented to the ED with complains of sob and increasing leg swelling. #ESRD on HD/Hyperkalemia/Volume Overload stable dialysis today #Uncontrolled Hypertension secondary to volume overload + underlying hypertension Continue Labetalol, Clonidine and Amlodpine goal BP < 140/90 #Osteomylitis of the LE vanco to be continued with HD for total of 8 weeks no need for surgial intervention at this time #DKA/Hyperglycemia/IDDM on SC insulin pt education #CKD related Anemia Continue Epogen with HD Nathan Vo DO
--- NOTE | 2016-05-06 13:23 | PN ---
<Nurys Phoenix - Last Filed: 05/06/16 16:11> Physical Exam: SUBJECTIVE: Patient seen and examined Patient resting in bed comfortably NAD. hypoglycemic at midnight guc 50. further sugarrs better controlled 150's. 250's. afebrile, BP better controlled 158/94. s/p UF yesterday minus 3.5 L and getting HD today to remove 3.5 L. Her LE edema is even. refused heparin yesterday, one LE more edematous thatn other, nontender yesterday, refused dupplex yesterday. explained today importance of hep, agreeable but states she gets nosebleeds while on it. denies dizziness, chest pain, palpitations, sob, h/a, and pain or diarrhea. reports having a BM today. OBJECTIVE: Vital Signs Period Temp Pulse Resp BP Sys/Ames Pulse Ox Last 24 Hr 98.2 F-98.3 F 84-96 18-20 139-202/83-118 98-98 GENERAL: Awake, alert, and fully oriented, in no acute distress. HEAD: Normal with no signs of trauma. EYES: Pupils equal, round and reactive to light, extraocular movements intact, sclera anicteric, conjunctiva clear. EARS, NOSE, THROAT: Moist mucous membranes. NECK: supple LUNGS: Breath sounds equal, clear to auscultation bilaterally. HEART: Regular rate and rhythm, normal S1 and S2 ABDOMEN: Soft, nontender, not distended, normoactive bowel sounds, MUSCULOSKELETAL: No CVA tenderness. UPPER EXTREMITIES: 2+ pulses, warm, well-perfused. No peripheral edema. LOWER EXTREMITIES: 2+ pulses, warm, well-perfused. No calf tenderness. 1+ peripheral edema b/l NEUROLOGICAL: Cranial nerves II-XII grossly intact. Normal speech. PSYCHIATRIC: Cooperative. Good eye contact. Appropriate mood and affect. SKIN: Warm, dry, Laboratory Results - last 24 hr 05/05/16 05/05/16 05/06/16 16:53 20:45 00:00 WBC RBC Hgb Hct MCV MCHC RDW Plt Count MPV Sodium Potassium Chloride Carbon Dioxide Anion Gap BUN Creatinine Creat Clearance w eGFR POC Glucometer 292 227 55 Random Glucose Calcium Phosphorus Total Bilirubin AST ALT Alkaline Phosphatase Total Protein Albumin Vancomycin Trough 05/06/16 05/06/16 05/06/16 01:40 05:48 06:15 WBC 8.9 RBC 3.57 L Hgb 8.6 L Hct 28.1 L MCV 78.7 L MCHC 30.6 L RDW 19.9 H Plt Count 260 MPV 8.7 Sodium Potassium Chloride Carbon Dioxide Anion Gap BUN Creatinine Creat Clearance w eGFR POC Glucometer 178 162 Random Glucose Calcium Phosphorus Total Bilirubin AST ALT Alkaline Phosphatase Total Protein Albumin Vancomycin Trough 05/06/16 05/06/16 05/06/16 06:15 06:15 07:40 WBC RBC Hgb Hct MCV MCHC RDW Plt Count MPV Sodium 134 L Cancelled Potassium 5.1 Cancelled Chloride 93 L Cancelled Carbon Dioxide 23 Cancelled Anion Gap 18 H Cancelled BUN 82 H D Cancelled Creatinine 6.8 H D Cancelled Creat Clearance w eGFR 7.34 POC Glucometer Random Glucose 75 D Cancelled Calcium 8.3 L Cancelled Phosphorus 7.0 H Cancelled Total Bilirubin 0.5 AST 53 H D ALT 57 Alkaline Phosphatase 846 H Total Protein 7.5 Albumin 3.1 L Vancomycin Trough 16.596 H* 05/06/16 12:02 WBC RBC Hgb Hct MCV MCHC RDW Plt Count MPV Sodium Potassium Chloride Carbon Dioxide Anion Gap BUN Creatinine Creat Clearance w eGFR POC Glucometer 124 Random Glucose Calcium Phosphorus Total Bilirubin AST ALT Alkaline Phosphatase Total Protein Albumin Vancomycin Trough Active Medications Generic Name Dose Route Start Last Admin Trade Name Freq PRN Reason Stop Dose Admin Acetaminophen 325 mg 05/02/16 17:01 05/06/16 01:42 Tylenol - PO 325 mg Q6H PRN Administration PAIN Amlodipine Besylate 10 mg 05/04/16 12:30 05/06/16 12:00 Norvasc - PO Not Given DAILY [facility] Clonidine 0.6 mg 05/02/16 08:08 05/06/16 06:08 Catapres - PO 0.6 mg TID ROSA MARIA Administration Gabapentin 100 mg 05/02/16 22:00 05/06/16 06:09 Neurontin - PO 100 mg TID ROSA MARIA Administration Heparin Sodium (Porcine) 5,000 unit 05/02/16 22:00 05/06/16 06:11 Heparin - SQ Not Given TID [facility] Insulin Aspart 1 vial 05/02/16 22:00 05/06/16 12:04 Novolog Vial Sliding Scale - SQ Not Given ACHS [facility] Protocol Insulin Detemir 15 units 05/05/16 22:00 05/06/16 06:11 Levemir Vial SQ 15 unit BID@0700,2200 ROSA MARIA Administration Labetalol HCl 400 mg 05/02/16 22:00 05/06/16 11:59 Normodyne - PO Not Given BID ROSA MARIA Mupirocin 1 applic 05/03/16 10:00 05/06/16 11:58 Bactroban 2% Cream - TP Not Given BID ROSA MARIA Oxycodone HCl 5 mg 05/02/16 17:01 05/06/16 01:43 Roxicodone - PO 5 mg Q6H PRN Administration PAIN Polyethylene Glycol 17 gm 05/03/16 11:00 05/06/16 09:55 Miralax (For Daily Use) - PO Not Given DAILY ROSA MARIA ASSESSMENT/PLAN: This is a 25 yo F with a PMH of anemia, hypertension, PE 6 yrs ago s/p 6 mo course of coum, insulin dependent diabetes mellitus 1, end stage renal disease ( on hemodialysis MWF), myosistis, osteomylities (right fifth digit on daily vanco ) and seizure disorders who presents to the emergency department due to SOB. She states that she is sob due to volume overloading. Found to be in dka DKA in setting of IDDM1 -medication noncompiant at home -diet noncompliant -glucose admission 700, gap 16 -was in ICU on insulin drip, gap closed was xferred to floor -tolerating PO, asymptomatic -glucose this morning 163, patient stacks at night on carb rich foods at night. -levemir increased to 15 u BID-->hypoglycemia gluc 50 at midnight. change to levemir 15 AM and 8 HS. ESRD -DH MWF -volume overloaded >10kg over dry weight on admission -Renal consulted -UF yesterday, HD today -3.5L -renal diet -1L fluid restriction Diabetic R foot ulcer/osteomyelitis -vanco day 42 daily 1 gm after HD. trough therapeutic -daily trough and dose adjustment -ID consult -podiatry consult appreciated: no need for augusta intervention. HTN -clonidine 0.6 tid, labetalol -intolerant of procardia 60 due to dizziness -added norvasc 10 but BP poorly controlled -better control achieved. Elevated alk phos -close to 1000 -abd US: hempatomegaly, mild GB sludge -GTT elevated 466 -Gi consult appreciated: likely source from osteo Constipation -miralax -resolved FEN 1L fluid restrict lytes stable DVT Gi PPX: PPI, HEp, scd Dispo: monitor in med surge Problem List - Problems (1) Acute respiratory failure Code(s): J96.00 - ACUTE RESPIRATORY FAILURE, UNSP W HYPOXIA OR HYPERCAPNIA (2) Diabetic ketoacidosis with coma associated with type 1 diabetes mellitus Code(s): E10.11 - TYPE 1 DIABETES MELLITUS WITH KETOACIDOSIS WITH COMA (3) Fluid overload Code(s): E87.70 - FLUID OVERLOAD, UNSPECIFIED Qualifiers: Hypervolemia type: unspecified Qualified Code(s): E87.70 - Fluid overload, unspecified (4) History of pulmonary embolus (PE) Code(s): Z86.711 - PERSONAL HISTORY OF PULMONARY EMBOLISM (5) Hyperglycemia due to type 1 diabetes mellitus Code(s): E10.65 - TYPE 1 DIABETES MELLITUS WITH HYPERGLYCEMIA (6) Leukocytosis Code(s): D72.829 - ELEVATED WHITE BLOOD CELL COUNT, UNSPECIFIED (7) Osteomyelitis due to type 1 diabetes mellitus Code(s): E10.69 - TYPE 1 DIABETES MELLITUS WITH OTHER SPECIFIED COMPLICATION M86.9 - OSTEOMYELITIS, UNSPECIFIED (8) ESRD (end stage renal disease) on dialysis Code(s): N18.6 - END STAGE RENAL DISEASE Z99.2 - DEPENDENCE ON RENAL DIALYSIS (9) Diabetes mellitus, insulin dependent (IDDM), uncontrolled Code(s): E10.65 - TYPE 1 DIABETES MELLITUS WITH HYPERGLYCEMIA (10) Diabetic foot infection Code(s): E11.69 - TYPE 2 DIABETES MELLITUS WITH OTHER SPECIFIED COMPLICATION L08.9 - LOCAL INFECTION OF THE SKIN AND SUBCUTANEOUS TISSUE, UNSP (11) Diabetic foot ulcer Code(s): E11.621 - TYPE 2 DIABETES MELLITUS WITH FOOT ULCER L97.509 - NON-PRESSURE CHRONIC ULCER OTH PRT UNSP FOOT W UNSP SEVERITY Qualifiers: Diabetes mellitus type: type 1 Laterality: right Qualified Code( s): E10.621 - Type 1 diabetes mellitus with foot ulcer; L97.519 - Non-pressure chronic ulcer of other part of right foot with unspecified severity (12) Open wound of foot Code(s): S91.309A - UNSPECIFIED OPEN WOUND, UNSPECIFIED FOOT, INITIAL ENCOUNTER (13) Osteomyelitis Code(s): M86.9 - OSTEOMYELITIS, UNSPECIFIED Qualifiers: Osteomyelitis location: foot Laterality: right Chronicity: acute Qualified Code(s): M86.171 - Other acute osteomyelitis, right ankle and foot (14) Dialysis patient Code(s): Z99.2 - DEPENDENCE ON RENAL DIALYSIS (15) HTN (hypertension) Code(s): I10 - ESSENTIAL (PRIMARY) HYPERTENSION (16) Hyperkalemia Code(s): E87.5 - HYPERKALEMIA Visit type - Emergency Visit Emergency Visit: Yes ED Registration Date: 05/01/16 Care time: The patient presented to the Emergency Department on the above date and was hospitalized for further evaluation of their emergent condition. - New Patient This patient is new to me today: No - Critical Care Critical Care patient: No - Discharge Referral Referred to [facility] Med P.C.: No <Maulik Gregory - Last Filed: 05/06/16 16:20> Physical Exam: ATTENDING PHYSICIAN STATEMENT I saw and evaluated the patient. I reviewed the resident's note and discussed the case with the resident. I agree with the resident's findings and plan as documented. SUBJECTIVE: seen and evaluated at the bedside OBJECTIVE: resting comfortably; no rales on exam ASSESSMENT AND PLAN: 25 yo F with a PMH of anemia, hypertension, PE 6 yrs ago s/p 6 mo course of coum , insulin dependent diabetes mellitus 1, end stage renal disease (on chronic hemodialysis MWF), myosistis, osteomylities (right fifth digit on daily vanco) and seizure disorders admitted for pulmonary edema Pulm Edema -due to volume overload from ESRD -has been getting ultra-filtration in addition to dialysis -another 4 liters removed today -lungs clear on exam HTN -BP better controlled this afternoon after HD but was elevated to Systolic of 200's earlier today -appears that patient did not receive all antihypertensives today' follow up with nursing -cont labetalol, clonidine, and amlodipine -cont to trend DM -changed levemir to BID but pt became hypoglycemic overnight which responded to juice/food -cont levemir 15 QD; decrease night time levemir to 8 -cont sliding scale insulin
[2016-05-06] MEDS ORDERED: PT OWN MED DRAWER 7, Y5N ONE ×3 (14:30→21:28)
[2016-05-06] MEDS ORDERED: NIFEdipine E.R. 30 MG TABLET (FP) PO PRN (17:14)
[2016-05-06] MEDS: NIFEdipine E.R. 30 MG TABLET (FP) PO SCH (18:23)
[2016-05-06] MEDS ORDERED: INSULIN (NOVOLOG) ASPART 100 UNITS/ML 10ML VIAL ONE (21:28)
[2016-05-06] MEDS ORDERED: INSULIN DETEMIR 100 UNITS/ML MDV SQ SCH (22:00)
[2016-05-07] MEDS: cloNIDine HCL 0.1 MG TABLET PO SCH ×2 (05:20→14:07)
[2016-05-07] MEDS: GABAPENTIN 100 MG CAPSULE (FP) PO SCH ×2 (05:21→14:08)
[2016-05-07] MEDS: HEPARIN NA (PORCINE) 5,000 UNITS/ML 1ML VIAL SQ SCH ×2 (05:21→14:08)
[2016-05-07 06:13] VITALS: PULSE 91
[2016-05-07] MEDS: INSULIN SLIDING SCALE (NOVOLOG) 1 VIAL SQ SCH ×3 (06:37→18:16)
[2016-05-07] MEDS ORDERED: INSULIN DETEMIR 100 UNITS/ML MDV SQ SCH (07:00)
[2016-05-07 07:57] LABS: MCH 24.3 pg (25.7-33.7); MCHC 30.3 g/dl (32.0-36.0); MEAN CELL VOLUME 80.3 fl (80-96); PLATELET COUNT 298 K/MM3 (134-434); RDW 19.5 % (11.6-15.6); WHITE BLOOD COUNT 9.9 K/mm3 (4.0-10.0)
[2016-05-07 08:39] LABS: ALBUMIN 3.5 g/dl (3.4-5.0); CREATININE 4.9 mg/dL (0.55-1.02); MAGNESIUM 1.9 mg/dL (1.8-2.4); PHOSPHOROUS 6.2 mg/dL (2.5-4.9)
[2016-05-07 09:24] VITALS: BP 155/104; TEMP 98.4
[2016-05-07] MEDS: LABETALOL HCL 200 MG TABLET (FP) PO SCH (10:09)
[2016-05-07] MEDS: NIFEdipine E.R. 30 MG TABLET (FP) PO SCH (10:09)
[2016-05-07] MEDS: POLYETHYLENE GLYCOL 3350 119 GM BTL PO SCH (10:10)
[2016-05-07] MEDS: MUPIROCIN CA 2% TOPICAL CREAM 15 GM TUBE TP SCH (10:10)
--- NOTE | 2016-05-07 10:36 | DS ---
Physical Exam: SUBJECTIVE: Patient seen and examined Patient resting in bed comfortably NAD. adequate glucose and BP control after med adjustment. afebrile and hemodynamically stable. refused heparin yesterday, denies dizziness, chest pain, palpitations, sob, h/a, and pain or diarrhea. reports having a BM today. OBJECTIVE: Vital Signs Period Temp Pulse Resp BP Sys/Ames Pulse Ox Last 24 Hr 98.2 F-98.7 F 90-101 16-20 141-202/86-118 98 PHYSICAL EXAM GENERAL: Awake, alert, and fully oriented, in no acute distress. HEAD: Normal with no signs of trauma. EYES: Pupils equal, round and reactive to light, extraocular movements intact, sclera anicteric, conjunctiva clear. EARS, NOSE, THROAT: Moist mucous membranes. NECK: supple LUNGS: Breath sounds equal, clear to auscultation bilaterally. HEART: Regular rate and rhythm, normal S1 and S2 ABDOMEN: Soft, nontender, not distended, normoactive bowel sounds, MUSCULOSKELETAL: No CVA tenderness. UPPER EXTREMITIES: 2+ pulses, warm, well-perfused. No peripheral edema. LOWER EXTREMITIES: 2+ pulses, warm, well-perfused. No calf tenderness. 1+ peripheral edema b/l NEUROLOGICAL: Cranial nerves II-XII grossly intact. Normal speech. PSYCHIATRIC: Cooperative. Good eye contact. Appropriate mood and affect. SKIN: Warm, dry, LABS Laboratory Results - last 24 hr 05/05/16 05/06/16 05/06/16 07:10 12:02 17:41 WBC RBC Hgb Hct MCV MCHC RDW Plt Count MPV Sodium Potassium Chloride Carbon Dioxide Anion Gap BUN Creatinine POC Glucometer 124 413 Random Glucose Calcium Phosphorus Magnesium Albumin [facility] [place] &[employer] Intrp 23 H 05/06/16 05/07/16 05/07/16 21:08 05:16 06:20 WBC 9.9 RBC 3.77 Hgb 9.2 L Hct 30.3 L MCV 80.3 MCHC 30.3 L RDW 19.5 H Plt Count 298 MPV 9.0 Sodium Potassium Chloride Carbon Dioxide Anion Gap BUN Creatinine POC Glucometer 182 292 Random Glucose Calcium Phosphorus Magnesium Albumin [facility] [place] &[employer] Intrp 05/07/16 06:20 WBC RBC Hgb Hct MCV MCHC RDW Plt Count MPV Sodium 133 L Potassium 4.9 Chloride 91 L Carbon Dioxide 25 Anion Gap 17 H BUN 64 H D Creatinine 4.9 H D POC Glucometer Random Glucose 218 H D Calcium 9.0 Phosphorus 6.2 H Magnesium 1.9 Albumin 3.5 [facility] [place] [facility] HOSPITAL COURSE: Date of Admission:05/01/16 This is a 25 yo F with a PMH of anemia, hypertension, PE 6 yrs ago s/p 6 mo course of coum, insulin dependent diabetes mellitus 1, end stage renal disease ( on hemodialysis MWF), myosistis, osteomylities (right fifth digit on daily vanco ) and seizure disorders who presents to the emergency department due to SOB. She states that she is sob due to volume overloading, her HD facility had a change of protocol and no longertakes off enough fluid per session, She is now over 10 lb over her dry weight. her sob has been going on for a few weeks and became wores over daniella last 2 days. She has orthopnea. Her last HD was on wed. She is medication noncompliant but does not adnere to a diabetic diet. Today she has some chest tightness but no h/a, nereida pain, n/v, abd pain, diarrhea, constipation or dysuria. she complains of polydipsia. she does not produce urine. This is a 25 yo F with a PMH of anemia, hypertension, PE 6 yrs ago s/p 6 mo course of coum, insulin dependent diabetes mellitus 1, end stage renal disease ( on hemodialysis MWF), myosistis, osteomylities (right fifth digit on daily vanco ) and seizure disorders who presents to the emergency department due to SOB. She states that she is sob due to volume overloading. Found to be in dka and volume overloaded. She was admited with DKA in setting of IDDM1. she was medication noncompiant at home as well as diet noncompliant. She was in ICU with gap acidosis on insulin drip. Transferred to [facility]. Her insulin was adjusted as folloew and achieved adequate glucemic control: levemir 15 AM and 8 HS. plus sliding scale. She was also treated for volume overload of about 13 liters. she received several HD and UF sessions. Her HD service was contacted for adjustment to HD protocol. Her Diabetic R foot ulcer/osteomyelitis s/p surgery was evaluated by ortho and ID. Continue vanco for another week. Her HTN was poorly controlled and her BP meds were adjusted as follows for adequate control: clonidine 0.6 tid , labetalol 400 bid and procardia 30 d. Date of Discharge: 05/07/16 Minutes to complete discharge: 30 (na) <LizettNurys - Last Filed: 05/07/16 12:42> Physical Exam: ATTENDING PHYSICIAN STATEMENT I saw and evaluated the patient. I reviewed the resident's note and discussed the case with the resident. I agree with the resident's findings and plan as documented. SUBJECTIVE: seen and evaluated at the bedside OBJECTIVE: resting comfortably; no rales on exam ASSESSMENT AND PLAN: 25 yo F with a PMH of anemia, hypertension, PE 6 yrs ago s/p 6 mo course of coum , insulin dependent diabetes mellitus 1, end stage renal disease (on chronic hemodialysis MWF), myosistis, osteomylities (right fifth digit on daily vanco) and seizure disorders admitted for pulmonary edema Pulm Edema -due to volume overload from ESRD -has been getting ultra-filtration in addition to dialysis -lungs clear on exam -discussed case with nephrology attending and pt will be discharged today and he will discuss with outpatient plaster whittler to lengthen outpatient dialysis sessions for for volume removal HTN -BP better controlled -cont labetalol, clonidine, and amlodipine changed to nifedipine DM -cont levemir 15 QD; decreased night time levemir to 8 -cont sliding scale insulin <Maulik Gregory - Last Filed: 05/07/16 14:44> Discharge Summary Reason For Visit: HYPERGLYCEMIA,ESRD ON DIALYSIS,FLUID O/L Current Active Problems Acute respiratory failure (Acute) Diabetic ketoacidosis with coma associated with type 1 diabetes mellitus (Acute ) Fluid overload (Acute) History of pulmonary embolus (PE) (Acute) Hyperglycemia due to type 1 diabetes mellitus (Acute) Leukocytosis (Acute) Osteomyelitis due to type 1 diabetes mellitus (Acute) ESRD (end stage renal disease) on dialysis (Chronic) - Home Medications Comprehensive Discharge Medication List: Ambulatory Orders Sevelamer Carbonate [Renvela -] 800 mg PO TID 09/22/15 Oxycodone HCl/Acetaminophen [Percocet 5-325 mg Tablet] 1 tab PO Q6H PRN #10 tablet MDD 4 11/11/15 Amlodipine Besylate [Norvasc -] 10 mg PO DAILY 01/23/16 Clonidine HCl [Catapres -] 0.4 mg PO TID 02/29/16 Gabapentin 100 mg PO TID 03/11/16 Metoprolol Tartrate [Lopressor] 100 mg PO BID 03/21/16 Insulin Aspart [Novolog Flexpen] 3 unit SQ TID #10 ml 03/26/16 Insulin Detemir [Levemir Flextouch] 15 unit SQ AM #10 ml 03/26/16 <LizettLudmialNurys - Last Filed: 05/07/16 12:42> Current Active Problems Acute respiratory failure (Acute) Diabetic ketoacidosis with coma associated with type 1 diabetes mellitus (Acute ) Fluid overload (Acute) History of pulmonary embolus (PE) (Acute) Hyperglycemia due to type 1 diabetes mellitus (Acute) Leukocytosis (Acute) Osteomyelitis due to type 1 diabetes mellitus (Acute) ESRD (end stage renal disease) on dialysis (Chronic) - Home Medications Comprehensive Discharge Medication List: Ambulatory Orders Sevelamer Carbonate [Renvela -] 800 mg PO TID 09/22/15 Oxycodone HCl/Acetaminophen [Percocet 5-325 mg Tablet] 1 tab PO Q6H PRN #10 tablet MDD 4 11/11/15 Gabapentin 100 mg PO TID 03/11/16 Clonidine HCl [Catapres -] 0.6 mg PO TID #120 tablet 05/07/16 Insulin (Levemir) [Levemir Vial] 8 units SQ HS #10 ml 05/07/16 Insulin (Levemir) [Levemir Vial] 15 units SQ BID@0700,2200 #10 ml 05/07/16 Insulin Sliding Scale [Novolog Vial Sliding Scale -] 1 vial SQ ACHS #500 units 05/07/16 Labetalol HCl [Normodyne -] 400 mg PO BID #60 tablet 05/07/16 Miscellaneous Medical Supply [Glucometer Device] 1 each SQ ASDIR #1 kit Miscellaneous Medical Supply [Glucometer Test Strips #100] 1 each SQ ASDIR #10 box 05/07/16 Miscellaneous Medical Supply [Lancets] 1 each SQ ASDIR #1 box 05/07/16 Mupirocin Cream [Bactroban 2% Cream -] 1 applic TP BID #1 tube 05/07/16 Nifedipine ER [Procardia XL -] 30 mg PO DAILY #30 tab.er.24 05/07/16 <Maulik Gregory - Last Filed: 05/07/16 14:44> Condition: Good - Instructions Diet, Activity, Other Instructions: you were admitted for fluid overload and Diabetic ketoacidosis. Please follow a better diabetic diet and comply with your medication. We adjusted your diabetic medication: Levemir 15 units AM, 8 Units at night, plus sliding scale We adjusted your BP medication: Procardia 30 daily, labetalol 400 twice a day, clonidne 0.6 three times a day Please follow up with you primary care and seafood specialist we contacted your dialysis center and gave new instructions Please follow up with your plaster whittler in a week. All new prescriptions were sent to your pharmacy. Referrals: Devan Dubon MD [Staff Physician] - 2 Weeks Nathan Vo MD [Staff Physician] - 1 Week Disposition: HOME Problem List - Problems (1) Acute respiratory failure Code(s): J96.00 - ACUTE RESPIRATORY FAILURE, UNSP W HYPOXIA OR HYPERCAPNIA (2) Diabetic ketoacidosis with coma associated with type 1 diabetes mellitus Code(s): E10.11 - TYPE 1 DIABETES MELLITUS WITH KETOACIDOSIS WITH COMA (3) Fluid overload Code(s): E87.70 - FLUID OVERLOAD, UNSPECIFIED Qualifiers: Hypervolemia type: unspecified Qualified Code(s): E87.70 - Fluid overload, unspecified (4) History of pulmonary embolus (PE) Code(s): Z86.711 - PERSONAL HISTORY OF PULMONARY EMBOLISM (5) Hyperglycemia due to type 1 diabetes mellitus Code(s): E10.65 - TYPE 1 DIABETES MELLITUS WITH HYPERGLYCEMIA (6) Leukocytosis Code(s): D72.829 - ELEVATED WHITE BLOOD CELL COUNT, UNSPECIFIED (7) Osteomyelitis due to type 1 diabetes mellitus Code(s): E10.69 - TYPE 1 DIABETES MELLITUS WITH OTHER SPECIFIED COMPLICATION M86.9 - OSTEOMYELITIS, UNSPECIFIED (8) ESRD (end stage renal disease) on dialysis Code(s): N18.6 - END STAGE RENAL DISEASE Z99.2 - DEPENDENCE ON RENAL DIALYSIS (9) Diabetes mellitus, insulin dependent (IDDM), uncontrolled Code(s): E10.65 - TYPE 1 DIABETES MELLITUS WITH HYPERGLYCEMIA (10) Diabetic foot infection Code(s): E11.69 - TYPE 2 DIABETES MELLITUS WITH OTHER SPECIFIED COMPLICATION L08.9 - LOCAL INFECTION OF THE SKIN AND SUBCUTANEOUS TISSUE, UNSP (11) Diabetic foot ulcer Code(s): E11.621 - TYPE 2 DIABETES MELLITUS WITH FOOT ULCER L97.509 - NON-PRESSURE CHRONIC ULCER OTH PRT UNSP FOOT W UNSP SEVERITY Qualifiers: Diabetes mellitus type: type 1 Laterality: right Qualified Code( s): E10.621 - Type 1 diabetes mellitus with foot ulcer; L97.519 - Non-pressure chronic ulcer of other part of right foot with unspecified severity (12) Open wound of foot Code(s): S91.309A - UNSPECIFIED OPEN WOUND, UNSPECIFIED FOOT, INITIAL ENCOUNTER (13) Osteomyelitis Code(s): M86.9 - OSTEOMYELITIS, UNSPECIFIED Qualifiers: Osteomyelitis location: foot Laterality: right Chronicity: acute Qualified Code(s): M86.171 - Other acute osteomyelitis, right ankle and foot (14) Dialysis patient Code(s): Z99.2 - DEPENDENCE ON RENAL DIALYSIS (15) HTN (hypertension) Code(s): I10 - ESSENTIAL (PRIMARY) HYPERTENSION (16) Hyperkalemia Code(s): E87.5 - HYPERKALEMIA <Nurys Phoenix - Last Filed: 05/07/16 12:42> This patient is new to me today: No Emergency Visit: Yes ED Registration Date: 05/01/16 Care time: The patient presented to the Emergency Department on the above date and was hospitalized for further evaluation of their emergent condition. Critical Care patient: No - Discharge Referral Referred to [facility] Med P.C[facility] No <Nurys Phoenix - Last Filed: 05/07/16 12:42>
[2016-05-07] MEDS ORDERED: OXYCODONE/APAP 5/325MG COMBO TABLET PO PRN (12:29)
[2016-05-07] MEDS ORDERED: oxyCODONE HCL 5 MG TABLET PO PRN (13:39)
[2016-05-07] MEDS ORDERED: ACETAMINOPHEN 325 MG TABLET (FP) PO PRN (13:40)
--- NOTE | 2016-05-07 14:54 | PN ---
Progress Note (short form) - Note Progress Note: Renal Follow up for ESRD on HD/Volume Overload Pt seen and examined at the bedside No acute complaints no sob, chest pain s/p dialysis yesterday for discharge today Vital Signs Temperature 98.4 F 05/07/16 09:00 Pulse Rate 91 H 05/07/16 09:00 Respiratory Rate 18 05/07/16 09:00 Blood Pressure 155/104 05/07/16 09:00 O2 Sat by Pulse Oximetry (%) 98 05/07/16 09:00 Intake & Output 05/04/16 05/05/16 05/06/16 05/07/16 23:59 23:59 23:59 23:59 Intake Total 850 1500 600 300 Balance 850 1500 600 300 Gen: NAD, awake and alert CVS: RRR, No M/R Lungs: CTA Abd: soft NT/ND Ext: >2+ edema in LE, no cyanosis of clubbing CBC, BMP 05/07/16 06:20 05/07/16 06:20 Current Medications Acetaminophen (Tylenol -) 325 mg PO Q6H PRN PRN Reason: PAIN Last Admin: 05/06/16 01:42 Dose: 325 mg Acetaminophen (Tylenol -) 650 mg PO Q6H PRN PRN Reason: PAIN LEVEL 6-10 Last Admin: 05/07/16 14:12 Dose: 650 mg Clonidine (Catapres -) 0.6 mg PO TID [facility] Last Admin: 05/07/16 14:07 Dose: 0.6 mg Gabapentin (Neurontin -) 100 mg PO TID [facility] Last Admin: 05/07/16 14:08 Dose: 100 mg Heparin Sodium (Porcine) (Heparin -) 5,000 unit SQ TID [facility] Last Admin: 05/07/16 14:08 Dose: Not Given Insulin Aspart (Novolog Vial Sliding Scale -) 1 vial SQ [facility] PRN Reason: Protocol Last Admin: 05/07/16 12:06 Dose: Not Given Insulin Detemir (Levemir Vial) 15 units SQ AM [facility] Last Admin: 05/07/16 06:36 Dose: 15 units Insulin Detemir (Levemir Vial) 8 units SQ HS [facility] Last Admin: 05/06/16 21:33 Dose: 8 units Labetalol HCl (Normodyne -) 400 mg PO BID [facility] Last Admin: 05/07/16 10:09 Dose: 400 mg Mupirocin (Bactroban 2% Cream -) 1 applic TP BID [facility] Last Admin: 05/07/16 10:10 Dose: 1 applic Nifedipine (Procardia Xl -) 30 mg PO DAILY [facility] Last Admin: 05/07/16 10:09 Dose: 30 mg Oxycodone HCl (Roxicodone -) 10 mg PO Q6H PRN PRN Reason: PAIN LEVEL 6-10 Last Admin: 05/07/16 14:06 Dose: 10 mg Polyethylene Glycol (Miralax (For Daily Use) -) 17 gm PO DAILY [facility] Last Admin: 05/07/16 10:10 Dose: 17 grams A/P 25 year old woman with PMhx of ESRD no HD (MWF), IDDM on insulin pump, Osteomylitis, Atrial thrombosis who presented to the ED with complains of sob and increasing leg swelling. #ESRD on HD/Hyperkalemia/Volume Overload Volume status improved with dialysis Pt was advised that she will need to be a strict fluid restriction of 1.2L daily as well as a 2g salt restriction Will discuss with her outpatient dialysis unit about optimizing fluid removal with HD and extra treatments as needed #Uncontrolled Hypertension secondary to volume overload + underlying hypertension Continue Labetalol, Clonidine and Amlodpine goal BP < 140/90 #Osteomylitis of the LE Vancomycin will need to be continued for 2 more weeks -> conveyed to the dialysis unit Nathan Vo DO
== END 2016-05-07 19:58 | disposition home or self-care (01) | DRG 637 ==
LOC: JER 06:16 → JERBED 11:18 → JICU 12:25 → J8W 05-02 16:39
PROVIDERS: ADMIT Internal Medicine; ATTEND Internal Medicine
PROC: 5A1D60Z (ICD-10-PCS; principal; 2016-05-06)
DX: E10.11 Type 1 diabetes mellitus with ketoacidosis with coma (principal); N18.6 End stage renal disease; J96.00 Acute respiratory failure, unspecified whether with hypoxia or hypercapnia; I12.0 Hypertensive chronic kidney disease with stage 5 chronic kidney disease or end stage renal disease; M86.171 Other acute osteomyelitis, right ankle and foot; E87.1 Hypo-osmolality and hyponatremia; Z99.2 Dependence on renal dialysis; Z79.4 Long term (current) use of insulin; E11.621 Type 2 diabetes mellitus with foot ulcer; E11.65 Type 2 diabetes mellitus with hyperglycemia; Z86.711 Personal history of pulmonary embolism; E87.70 Fluid overload, unspecified; D72.829 Elevated white blood cell count, unspecified; E87.5 Hyperkalemia; K59.00 Constipation, unspecified; D63.1 Anemia in chronic kidney disease
CPT/HCPCS: 36415; 71010-TC; 76700-TC; 80048; 80053; 80076; 82009; 82040; 82947; 82977; 83516; 83735; 84100; 84703; 85025; 85027; 85651; 86140; 86704; 86706; 86708; 86803; 87340; 93005; 93010; 99281-25; G0480; J0885; J1644

== ENCOUNTER 2016-07-08 21:56 | Inpatient (IN) | payer OTHER ==
[2016-07-08] MEDS ORDERED: LABETALOL HCL 5 MG/1 ML (100MG/20 ML VIAL) IVPUSH ONE (22:37)
[2016-07-08] MEDS ORDERED: ASPIRIN 81 MG CHEWABLE TABLETS PO ONE (22:37)
[2016-07-08] MEDS ORDERED: LABETALOL HCL 5 MG/1 ML (200MG/40ML VIAL) IVPB ONE (22:50)
[2016-07-08] MEDS ORDERED: ASPIRIN 81 MG CHEWABLE TABLETS ONE (22:50)
--- NOTE | 2016-07-08 22:58 | PDOC ---
History of Present Illness - General History Source: Patient, Old Records Exam Limitations: No Limitations - History of Present Illness Initial Comments: 07/08/16 23:14 The patient is a 25 year old female, with a significant past medical history of anemia, hypertension, deep venous thrombosis, pulmonary embolism (on Coumadin), insulin dependent diabetes mellitus, end stage renal disease (on hemodialysis MWF), myosistis, osteomylities (right fifth digit surgery) and seizure disorders , who presents to the emergency department with elevated blood pressure s/p dialysis. She notes that she had an elevated blood pressure prior to dialysis as well but was able to finish the entire course. She reports mild headache, without radiation or modifying factors. She also reports mild chest pressure, without radiation or modifying factors. The patient denies shortness of breath, and dizziness. Denies fever, chills, nausea, vomit, diarrhea and constipation. Allergies: None Known Past Surgical History: Myxoma removed. Right foot ulcer surgery. Left upper extremity fistula Social History: No tobacco, ETOH and recreational drug use. PMD - Dr. Edna Alvarado Librarian Special Collections: Dr. Corey Cassidy [phone] Slash Trimmer: Dr. Nathan Vo [phone] <Francisco Jacobs - Last Filed: 07/08/16 23:14> - General History Source: Patient Exam Limitations: No Limitations <Jose Rhodes - Last Filed: 07/09/16 01:17> - General Chief Complaint: Blood Pressure Problem Stated Complaint: HYPERTENSION Time Seen by Provider: 07/08/16 22:11 Past History <Francisco Jacobs - Last Filed: 07/08/16 23:14> - Past Medical History Anemia: Yes Diabetes: Yes (15 yrs Insulin dependent) Dialysis: Yes (M/W/F) Disorders: Yes (ESRD for 6 yrs) HTN: Yes Kidney Stones: (ESRD, Dialysis Mon, W, F, Left arm Fistula) Suicide Attempt (Hx): No Seizures: Yes (Several yrs ago, no medication) - Surgical History Cardiac Surgery: Yes (myxoma removed 2013) - Immunization History Immunization Up to Date: Yes - Psycho/Social/Smoking Cessation Hx Anxiety: No Suicidal Ideation: No Smoking Status: No Smoking History: Never smoked Have you smoked in the past 12 months: No Number of Cigarettes Smoked Daily: 10 Information on smoking cessation initiated: No Hx Alcohol Use: No Drug/Substance Use Hx: No Substance Use Type: None Hx Substance Use Treatment: No <Jose Rhodes - Last Filed: 07/09/16 01:17> - Past Medical History Allergies/Adverse Reactions: Allergies Allergy/AdvReac Type Severity Reaction Status Date / Time No Known Drug Allergies Allergy Verified 07/08/16 22:22 Home Medications: Ambulatory Orders Sevelamer Carbonate [Renvela -] 800 mg PO TID 09/22/15 Oxycodone HCl/Acetaminophen [Percocet 5-325 mg Tablet] 1 tab PO Q6H PRN #10 tablet MDD 4 11/11/15 Gabapentin 100 mg PO TID 03/11/16 Clonidine HCl [Catapres -] 0.6 mg PO TID #120 tablet 05/07/16 Insulin (Levemir) [Levemir Vial] 8 units SQ HS #10 ml 05/07/16 Insulin (Levemir) [Levemir Vial] 15 units SQ BID@0700,2200 #10 ml 05/07/16 Insulin Lispro [Humalog Kwikpen U-200] 200 unit SQ PRN PRN #15 insuln.pen Labetalol HCl [Normodyne -] 400 mg PO BID #60 tablet 05/07/16 Miscellaneous Medical Supply [Glucometer Device] 1 each SQ ASDIR #1 kit Miscellaneous Medical Supply [Glucometer Test Strips #100] 1 each SQ ASDIR #10 box 05/07/16 Miscellaneous Medical Supply [Lancets] 1 each SQ ASDIR #1 box 05/07/16 Mupirocin Cream [Bactroban 2% Cream -] 1 applic TP BID #1 tube 05/07/16 Nifedipine ER [Procardia XL -] 30 mg PO DAILY #30 tab.er.24 05/07/16 Review of Systems - Review of Systems Able to Perform ROS?: Yes Comments:: 07/08/16 23:14 GENERAL/CONSTITUTIONAL: No fever or chills. No weakness. HEAD, EYES, EARS, NOSE AND THROAT: No change in vision. No ear pain or discharge. No sore throat. CARDIOVASCULAR: +Chest pain. No shortness of breath RESPIRATORY: No cough, wheezing, or hemoptysis. GASTROINTESTINAL: No nausea, vomiting, diarrhea or constipation. GENITOURINARY: No dysuria, frequency, or change in urination. MUSCULOSKELETAL: No joint or muscle swelling or pain. No neck or back pain. SKIN: No rash NEUROLOGIC: +Headache. No vertigo, loss of consciousness, or change in strength/ sensation. ENDOCRINE: No increased thirst. No abnormal weight change HEMATOLOGIC/LYMPHATIC: No anemia, easy bleeding, or history of blood clots. ALLERGIC/IMMUNOLOGIC: No hives or skin allergy. <Francisco Jacobs - Last Filed: 07/08/16 23:14> *Physical Exam - Vital Signs Last Vital Signs Temp Pulse Resp BP Pulse Ox 98.7 F 91 H 20 208/121 96 07/08/16 22:22 07/08/16 22:22 07/08/16 22:22 07/08/16 22:22 07/08/16 22:22 - Physical Exam Comments: 07/08/16 23:15 GENERAL: Awake, alert, and fully oriented, in no acute distress HEAD: No signs of trauma, normocephalic, atraumatic EYES: PERRLA, EOMI, sclera anicteric, conjunctiva clear ENT: Auricles normal inspection, hearing grossly normal, nares patent, oropharynx clear without exudates. Moist mucosa NECK: Normal ROM, supple, no lymphadenopathy, JVD, or masses LUNGS: No distress, speaks full sentences, clear to auscultation bilaterally HEART: Regular rate and rhythm, normal S1 and S2, no murmurs, rubs or gallops, peripheral pulses normal and equal bilaterally. ABDOMEN: Soft, nontender, normoactive bowel sounds. No guarding, no rebound. No masses EXTREMITIES: +Palapable thrill left upper extremity. Normal inspection, Normal range of motion, no edema. No clubbing or cyanosis. NEUROLOGICAL: Cranial nerves II through XII grossly intact. Normal speech, normal gait, no focal sensorimotor deficits SKIN: Warm, Dry, normal turgor, no rashes or lesions noted. <Francisco Jacobs - Last Filed: 07/08/16 23:14> - Vital Signs Last Vital Signs Temp Pulse Resp BP Pulse Ox 98.7 F 91 H 20 208/121 96 07/08/16 22:22 07/08/16 22:22 07/08/16 22:22 07/08/16 22:22 07/08/16 22:22 <Jose Rhodes - Last Filed: 07/09/16 01:17> Heart Score/ECG Review - History History: Moderately suspicious - Electrocardiogram EKG: Normal - Age Age: </= 45 - Risk Factors Based on the list above the patient has:: >/=3 risk factors or Hx atherosclerotic disease - Troponin Troponin: </= normal limit - Score Heart Score - Total: 3 #1 ECG reviewed & interpreted by me at: 00:55 07/09/16 00:58 NSR 91 no std/nai, normal axis, normal intervals, QTC 467 msec <Jose Rhodes - Last Filed: 07/09/16 01:17> ED Treatment Course - Medications Given in the ED: ED Medications Discontinued Medications Generic Name Dose Route Start Last Admin Trade Name Freq PRN Reason Stop Dose Admin Labetalol HCl 20 mg 07/08/16 22:37 07/08/16 23:00 Normodyne Injection - IVPUSH 07/08/16 22:38 20 mg ONCE ONE Administration <Francisco Jacobs - Last Filed: 07/08/16 23:14> - LABORATORY CBC & Chemistry Diagram: 07/08/16 23:00 07/08/16 23:00 - RADIOLOGY Radiology Studies Ordered: Category Date Time Status CHEST X-RAY PORTABLE* [RAD] Stat Radiology 07/08/16 22:37 Ordered <Jose Rhodes - Last Filed: 07/09/16 01:17> Medical Decision Making - Critical Care Time Total Critical Care Time (minutes): 35 Critical Care Statement: The care of this patient involved high complexity decision making to prevent further life threatening deterioration of the patient 's condition and/or to evalute & treat vital organ system(s) failure or risk of failure. - Medical Decision Making 07/09/16 00:59 A portion of this note was documented by scribe services under my direction. I have reviewed the details of the note, within reason, and agree with the documentation with the following case summary and management plan written by me. Patient treated in the ED. Nursing notes are reviewed and incorporated into the medical decision-making. Vital signs reviewed. Peripheral IV access obtained by the nurse, laboratory studies are drawn and sent, reviewed and interpreted by myself. Vital Signs Temp Pulse Resp BP Pulse Ox 98.7 F 87 16 199/104 99 07/08/16 22:22 07/08/16 23:55 07/08/16 23:55 07/08/16 23:55 07/08/16 23:55 45-year-old female with past mental history of insulin dependent diabetes, end- stage renal disease on dialysis, last dialysis today, among multiple other medical comorbidities presents with elevated blood pressures. Patient reports that she was in her usual state of health today. Reported a vague, mild tension- like headache that resolved on its own. She went to dialysis today and noted that her blood pressures were 230 systolic. He had completed dialysis noted that her blood pressures remained persistently elevated. Patient blood pressures were 230s despite taking 2 doses of clonidine and 100 mg of metoprolol. She typically takes 400 mg of labetalol twice a day, 30 mg developing daily and 0.6 of clonidine 3 times a day. She also endorses some mild intermittent chest pressure that resolved on its own. No suspicion short of breath. Patient's EKG Shows no acute findings. However, patient blood work demonstrated diabetic ketoacidosis. However, the patient is nontoxic appearing. Insulin drip was initiated. Case was discussed with Dr. Acuña who accepts the patient to the ICU. Case was discussed with ICU nurse practitioner Huyen who accepts the patient. Trop negative. Case discussed in detail with admitting physician including history, physical exam and ancillary studies. Admitting physician has assumed care for the patient, will follow all pending diagnostics and will complete the evaluation and treatment. <Jose Rhodes - Last Filed: 07/09/16 01:17> *DC/Admit/Observation/Transfer - Attestations Scribe Attestion: 07/08/16 23:15 Documentation prepared by Francisco Jacobs, acting as medical office scheduler for Jose Rhodes MD <Francisco Jacobs - Last Filed: 07/08/16 23:14> - Discharge Dispostion Admit: Yes <Jose Rhodes - Last Filed: 07/09/16 01:17> Diagnosis at time of Disposition: DKA, type 1 Qualifiers: Diabetes mellitus complication detail: without coma Qualified Code(s): E10.10 - Type 1 diabetes mellitus with ketoacidosis without coma Chest pain Qualifiers: Chest pain type: other chest pain Qualified Code(s): R07.89 - Other chest pain HTN (hypertension) Qualifiers: Hypertension type: essential hypertension Qualified Code(s): I10 - Essential ( primary) hypertension - Discharge Dispostion Condition at time of disposition: Fair - Referrals Referrals: Edna Calero MD [Primary Care Provider] -
[2016-07-08 23:16] LABS: BASOPHIL 0.4 % (0-2.0); EOSINOPHIL 1.9 % (0-4.5); MCH 23.1 pg (25.7-33.7); MCHC 29.6 g/dl (32.0-36.0); MEAN CELL VOLUME 78.1 fl (80-96); MEAN PLT VOLUME 8.8 fl (7.5-11.1); NEUTROPHILS 84.7 % (42.8-82.8); PLATELET COUNT 483 K/MM3 (134-434); RDW 18.2 % (11.6-15.6); WHITE BLOOD COUNT 11.6 K/mm3 (4.0-10.0)
[2016-07-08 23:38] LABS: ALBUMIN 2.9 g/dl (3.4-5.0); ANION GAP 20 (8-16); BILIRUBIN,TOTAL 0.6 mg/dL (0.2-1.0); CALCIUM 9.3 mg/dL (8.5-10.1); CO2 20 mmol/L (21-32); CREATININE 3.5 mg/dL (0.55-1.02); MAGNESIUM 1.9 mg/dL (1.8-2.4); PHOSPHOROUS 4.4 mg/dL (2.5-4.9); SGOT/AST 26 U/L (15-37); SGPT/ALT 26 U/L (12-78); TOT PROT 8.1 g/dl (6.4-8.2)
[2016-07-08 23:50] LABS: INR 1.27 (0.82-1.09)
[2016-07-08 23:51] LABS: TROPONIN I < 0.02 ng/ml (0.00-0.05)
[2016-07-08 23:52] LABS: ALK PHOS 1336 U/L (45-117)
[2016-07-08 23:53] LABS: GLUCOSE,RANDOM 308 mg/dL (74-106)
[2016-07-09] MEDS ORDERED: LABETALOL HCL 5 MG/1 ML (100MG/20 ML VIAL) IVPUSH ONE (00:04)
[2016-07-09] MEDS ORDERED: INSULIN REGULAR 100 UNITS in SODIUM CHLORIDE 99 ML IVPB SCH (01:00)
[2016-07-09] MEDS ORDERED: DEXTROSE 5%-NORMAL SALINE 1,000 ML IV SCH (01:45)
--- NOTE | 2016-07-09 03:21 | CONSULT ---
Consult Consult Specialty:: Pulm/CC - History of Present Illness History of Present Illness: Pt is a 25yr old woman with PMHx including DM1 and ESRD on HD m//. Pt presents to the ER from HD on 07/08 with CC of hypertension. In the ER with WBC 11.6, h/h 8.5/28.7, platelets 483, INR 1.27, serum glucose 308, alk phos 1336, CK 200, 1+ acetone. Initial vital signs 208/121, HR 91, RR20, 96% 98.7. Pt received labetalol x2, asa and started on an insulin drip, transferred to the ICU for further management. Upon assessment in the ICU pt denies chest pain/ headache/sob/n/v/d. 147/94, HR 80s (sinus on tele) 95% on RA RR 15. - History Source History Provided By: Patient, Medical Record - Past Medical History Cardio/Vascular: Yes: HTN, Other (thrombus in heart per echo 11/2013; ? subclavian vein thromboses s/p dialysis catheters in the past) Pulmonary: Yes: Pulmonary Embolus Renal/: Yes: Renal Failure, Hemodialysis ...LMP: 10/02/15 Infectious Disease: Yes: MRSA (history of bacteremia, recent mrsa foot abscess) Endocrine: Yes: Diabetes Mellitus (type 1 on insulin pump) Additional Medical History: DVT, PE on coumadin - Past Surgical History Past Surgical History: Yes: AV Fistula/Graft (Right arm) - Alcohol/Substance Use Hx Alcohol Use: No History of Substance Use: reports: None - Smoking History Smoking history: Never smoked Have you smoked in the past 12 months: No Aproximately how many cigarettes per day: 10 - Social History Usual Living Arrangement: With Parent ADL: Independent Occupation: unemployed History of Recent Travel: No Home Medications - Allergies Allergies/Adverse Reactions: Allergies Allergy/AdvReac Type Severity Reaction Status Date / Time No Known Drug Allergies Allergy Verified 07/08/16 22:22 - Home Medications Home Medications: Ambulatory Orders Sevelamer Carbonate [Renvela -] 800 mg PO TID 09/22/15 Oxycodone HCl/Acetaminophen [Percocet 5-325 mg Tablet] 1 tab PO Q6H PRN #10 tablet MDD 4 11/11/15 Gabapentin 100 mg PO TID 03/11/16 Clonidine HCl [Catapres -] 0.6 mg PO TID #120 tablet 05/07/16 Insulin (Levemir) [Levemir Vial] 8 units SQ HS #10 ml 05/07/16 Insulin (Levemir) [Levemir Vial] 15 units SQ BID@0700,2200 #10 ml 05/07/16 Insulin Lispro [Humalog Kwikpen U-200] 200 unit SQ PRN PRN #15 insuln.pen Labetalol HCl [Normodyne -] 400 mg PO BID #60 tablet 05/07/16 Miscellaneous Medical Supply [Glucometer Device] 1 each SQ ASDIR #1 kit Miscellaneous Medical Supply [Glucometer Test Strips #100] 1 each SQ ASDIR #10 box 05/07/16 Miscellaneous Medical Supply [Lancets] 1 each SQ [facility]IR #1 box 05/07/16 Mupirocin Cream [Bactroban 2% Cream -] 1 applic TP BID #1 tube 05/07/16 Nifedipine ER [Procardia XL -] 30 mg PO DAILY #30 tab.er.24 05/07/16 Metoprolol Succinate [Toprol Xl -] 100 mg PO DAILY 07/09/16 Family Disease History - Family Disease History Family Disease History: Diabetes: Grandparent (HTN), Heart Disease: Grandparent , Other: Father (unknown), Mother (HTN) Review of Systems - Review of Systems Cardiovascular: reports: Chest Pain (now resolved), Edema (R>l) Gastrointestinal: denies: Abdominal Pain, Diarrhea, Nausea, Vomiting Musculoskeletal: reports: Extremity Pain (RLE) Neurological: reports: Headache (slight) Physical Exam Vital Signs: Vital Signs Period Temp Pulse Resp BP Sys/Ames Pulse Ox Last 24 Hr 98.7 F 84-91 16-20 152-208/94-121 96-99 Intake & Output 07/06/16 07/07/16 07/08/16 07/09/16 23:59 23:59 23:59 23:59 Weight 143 lb Constitutional: Yes: Well Nourished, No Distress, Calm Eyes: Yes: Other (equal round, NONreactive to light, dilated) HENT: Yes: Atraumatic Cardiovascular: Yes: S1, S2, Other (sinus on tele) Respiratory: Yes: CTA Bilaterally. No: Rhonchi, SOB, Tachypnea, Wheezes Gastrointestinal: Yes: Normal Bowel Sounds, Soft ...Rectal Exam: Yes: Deferred Renal/: Yes: Anuria Musculoskeletal: Yes: Other (chronic hardness to rt thigh) Extremities: Yes: Other (RLE pain) Edema: Yes Edema: LLE: 2+, RLE: 3+ Peripheral Pulses WNL: (+1 rt pedal +2 left pedal) Neurological: Yes: Other (no overt focal deficits). No: Aphasia, Confusion, Facial Droop, Lethargy Psychiatric: Yes: WNL, Alert Labs: Abnormal Lab Results 07/08/16 07/08/16 07/08/16 23:00 23:00 23:00 WBC 11.6 H Hgb 8.5 L Hct 28.7 L MCV 78.1 L MCHC 29.6 L RDW 18.2 H Plt Count 483 H D Neutrophils % 84.7 H D Lymphocytes % 6.9 L D INR 1.27 H PTT (Actin FS) 38.0 H D Sodium 134 L Chloride 94 L Carbon Dioxide 20 L Anion Gap 20 H BUN 27 H D Creatinine 3.5 H D Random Glucose 308 H* D Alkaline Phosphatase 1336 H D Creatine Kinase 200 H D CK-MB (CK-2) 5.695 H Albumin 2.9 L Acetone, Qual 07/08/16 23:00 WBC Hgb Hct MCV MCHC RDW Plt Count Neutrophils % Lymphocytes % INR PTT (Actin FS) Sodium Chloride Carbon Dioxide Anion Gap BUN Creatinine Random Glucose Alkaline Phosphatase Creatine Kinase CK-MB (CK-2) Albumin Acetone, Qual Positive small 1+ H Imaging - Results Chest X-ray: Image Reviewed Assessment/Plan Pt is a 25yr old woman with PMHx including DM1 and ESRD on HD m//. Pt presents to the ER from HD on 07/08 with CC of hypertension. Pt now the the ICU for management of hyperglycemia requiring insulin drip, leukocytosis ( reactionary?) pneumonia vs pulm edema. Pulm -o2 support prn for sat >94% -Nebulizers prn -Incentive spirometer -repeat chest xray ID: leukocytosis reactionary vs pneumonia -f/u cultures -Will give 1 time dose of Ceftriaxone, continue as clinically warranted Cardiovascular: pt states htn uncontrolled -Consult -Will continue pt on labetalol/ccb/catapress -f/u enzymes -duplex to rule out DVT as RLE with >edema vs left and listed hx of PE Renal -Continue HD m/w/f +prn -Consult -Continue home renal meds -Monitor electrolytes Endo: -Consult -Continue insulin drip, transition to subq when glucose <250, pt tolerated po and gap closed -BGM q1 while on insulin drip -BMP Q3-4 -Monitor electrolytes -IVF if necessary, pt tolerating po fluids and risk for volume overload Neuro -Pain management -Pt with round bilateral nonreactive dilated pupils (denies recreational drug use), neuro assessment otherwise unremarkable but would consider head CT/ophtha consult Prophylactic -DVT -Continue home ppi
[2016-07-09] MEDS ORDERED: CEFTRIAXONE 1 GM in DEXTROSE 5%-WATER - 50 ML IVPB ONE (03:27)
[2016-07-09] MEDS ORDERED: SODIUM CHLORIDE 1,000 ML IV SCH (03:30)
[2016-07-09] MEDS ORDERED: cloNIDine HCL 0.1 MG TABLET PO ONE (03:38)
[2016-07-09 03:39] VITALS: BMI 27.8
[2016-07-09] MEDS ORDERED: CEFTRIAXONE 50 ML ONE (03:49)
[2016-07-09 04:00] LABS: BASOPHIL 1.1 % (0-2.0); EOSINOPHIL 1.4 % (0-4.5); MCH 23.8 pg (25.7-33.7); MCHC 29.8 g/dl (32.0-36.0); MEAN CELL VOLUME 79.8 fl (80-96); MEAN PLT VOLUME 9.1 fl (7.5-11.1); NEUTROPHILS 82.5 % (42.8-82.8); PLATELET COUNT 452 K/MM3 (134-434); RDW 18.4 % (11.6-15.6); WHITE BLOOD COUNT 9.9 K/mm3 (4.0-10.0)
[2016-07-09] MEDS ORDERED: PANTOPRAZOLE 20 MG TABLET (FP) PO ONE ×2 (04:06→07:00)
[2016-07-09 04:09] LABS: ACETONE SERUM POSITIVE MODERATE 2+ (NEGATIVE)
[2016-07-09 04:21] LABS: ALBUMIN 2.6 g/dl (3.4-5.0); BILIRUBIN,TOTAL 0.6 mg/dL (0.2-1.0); CALCIUM 8.3 mg/dL (8.5-10.1); CREATININE 3.8 mg/dL (0.55-1.02); TOT PROT 7.4 g/dl (6.4-8.2)
[2016-07-09 04:35] LABS: TROPONIN I < 0.02 ng/ml (0.00-0.05)
[2016-07-09 04:39] LABS: PHOSPHOROUS 4.7 mg/dL (2.5-4.9)
[2016-07-09] MEDS: GABAPENTIN 100 MG CAPSULE (FP) PO SCH ×3 (06:44→21:44)
[2016-07-09] MEDS: LABETALOL HCL 200 MG TABLET (FP) PO SCH ×3 (06:44→21:45)
[2016-07-09] MEDS ORDERED: PT OWN MED DRAWER 7, Y5N ONE (08:24)
[2016-07-09 09:11] LABS: CALCIUM 8.8 mg/dL (8.5-10.1); CREATININE 4.3 mg/dL (0.55-1.02)
[2016-07-09] MEDS: NIFEdipine E.R. 30 MG TABLET (FP) PO SCH (09:19)
[2016-07-09] MEDS: SEVELAMER CARBONATE 800 MG TAB (FP) PO SCH ×3 (09:19→18:25)
--- NOTE | 2016-07-09 10:33 | HP ---
Admitting History and Physical - Primary Care Physician PCP: Edna Calero - Admission Chief Complaint: elevated BP History of Present Illness: 25 yrs old female sent from dialysis yesterday for elevated BP. She is currently in ICU for DKA. On Insulin infusion. She has h/o DM- 11yrs, HTN ,ESRD on HD, reynaud's disease, h/o PE, anemia, intermittent edema of right leg , h/o Osteomyelitis of foot,h/o volume overload. Not compliant with diabetes management and follow ups, her last visit with Shuttle Truck Driver was in February. No complaints except that her rt leg is sore Spoke with her Inspector [employer]- Dr Verdugo who states that she is very non compliant She usually has to have more than 4 sessions of dialysis per week due to drinking too much fluids History Source: Patient Limitations to Obtaining History: No Limitations - Past Medical History Cardiovascular: Yes: CHF, HTN, Other (thrombus in heart per echo 11/2013; ? subclavian vein thromboses s/p dialysis catheters in the past) Pulmonary: Yes: Pulmonary Embolus Renal/: Yes: Renal Failure, Hemodialysis ...LMP: 10/02/15 ...LMP Comment: Patient denies ...: No Heme/Onc: Yes: Other (atrial myxoma s/p surgical removal. Also has a history of PE ) Infectious Disease: Yes: MRSA (history of bacteremia, recent mrsa foot abscess) Endocrine: Yes: Diabetes Mellitus (type 1 on insulin pump) - Past Surgical History Past Surgical History: Yes: AV Fistula/Graft (Right arm) - Smoking History Smoking history: Never smoked Have you smoked in the past 12 months: No Aproximately how many cigarettes per day: 10 - Alcohol/Substance Use Hx Alcohol Use: No History of Substance Use: reports: None - Social History ADL: Independent Occupation: unemployed History of Recent Travel: No Home Medications - Allergies Allergies/Adverse Reactions: Allergies Allergy/AdvReac Type Severity Reaction Status Date / Time No Known Drug Allergies Allergy Verified 07/08/16 22:22 - Home Medications Home Medications: Ambulatory Orders RX: Sevelamer Carbonate [Renvela -] 800 mg PO TID 09/22/15 RX: Oxycodone HCl/Acetaminophen [Percocet 5-325 mg Tablet] 1 tab PO Q6H PRN #10 tablet MDD 4 11/11/15 RX: Gabapentin 100 mg PO TID 03/11/16 Miscellaneous Medical Supply [Glucometer Device] 1 each SQ ASDIR #1 kit Miscellaneous Medical Supply [Glucometer Test Strips #100] 1 each SQ ASDIR #10 box 05/07/16 Miscellaneous Medical Supply [Lancets] 1 each SQ ASDIR #1 box 05/07/16 RX: Clonidine HCl [Catapres -] 0.6 mg PO TID #120 tablet 05/07/16 RX: Insulin (Levemir) [Levemir Vial] 8 units SQ HS #10 ml 05/07/16 RX: Insulin (Levemir) [Levemir Vial] 15 units SQ BID@0700,2200 #10 ml 05/07/16 RX: Insulin Lispro [Humalog Kwikpen U-200] 200 unit SQ PRN PRN #15 insuln.pen RX: Labetalol HCl [Normodyne -] 400 mg PO BID #60 tablet 05/07/16 RX: Mupirocin Cream [Bactroban 2% Cream -] 1 applic TP BID #1 tube 05/07/16 RX: Nifedipine ER [Procardia XL -] 30 mg PO DAILY #30 tab.er.24 05/07/16 Metoprolol Succinate [Toprol Xl -] 100 mg PO DAILY 07/09/16 Family Disease History - Family Disease History Family Disease History: Diabetes: Grandparent (HTN), Heart Disease: Grandparent , Other: Father (unknown), Mother (HTN) Review of Systems - Review of Systems Constitutional: denies: Chills, Fever Cardiovascular: denies: Chest Pain, Palpitations, Shortness of Breath Respiratory: reports: SOB. denies: Cough Gastrointestinal: denies: Abdominal Pain Musculoskeletal: reports: Extremity Pain, Joint Swelling Physical Examination Vital Signs: Vital Signs Temperature 97.5 F L 07/09/16 02:41 Pulse Rate 78 07/09/16 10:00 Respiratory Rate 16 07/09/16 10:00 Blood Pressure 117/65 07/09/16 10:00 O2 Sat by Pulse Oximetry (%) 98 07/09/16 09:00 Constitutional: Yes: No Distress, Calm Cardiovascular: Yes: Regular Rate and Rhythm Respiratory: Yes: Diminished Gastrointestinal: Yes: Normal Bowel Sounds, Soft, Hepatomegaly. No: Palpable Mass, Tenderness Edema: Yes Edema: LLE: 2+ Neurological: Yes: Alert, Oriented Psychiatric: Yes: Alert, Oriented Labs: CBC, BMP 07/09/16 03:40 07/09/16 07:50 Imaging - Results Chest X-ray: Image Reviewed (congestion) Ultrasound: Report Reviewed (sono leg- negative DVT, liver sono- Hepatomegaly) EKG: Image Reviewed (NSR) Problem List - Problems (1) DKA, type 1 Code(s): E10.10 - TYPE 1 DIABETES MELLITUS WITH KETOACIDOSIS WITHOUT COMA Qualifiers: Diabetes mellitus complication detail: without coma Qualified Code(s): E10.10 - Type 1 diabetes mellitus with ketoacidosis without coma (2) HTN (hypertension) Code(s): I10 - ESSENTIAL (PRIMARY) HYPERTENSION Qualifiers: Hypertension type: essential hypertension Qualified Code(s): I10 - Essential (primary) hypertension (3) Diabetes mellitus, insulin dependent (IDDM), uncontrolled Code(s): E10.65 - TYPE 1 DIABETES MELLITUS WITH HYPERGLYCEMIA (4) Fluid overload Code(s): E87.70 - FLUID OVERLOAD, UNSPECIFIED Qualifiers: Hypervolemia type: unspecified Qualified Code(s): E87.70 - Fluid overload, unspecified (5) ESRD (end stage renal disease) on dialysis Code(s): N18.6 - END STAGE RENAL DISEASE Z99.2 - DEPENDENCE ON RENAL DIALYSIS Assessment/Plan PLAN DKA- on Insulin drip, Pt known to be non compliant with meds and diet. -- Endocrinology evaluation -- off insulin pump -- ICU care CHF-- right sided heart failure likely with right leg swelling and Hepatomegaly -- Dialysis per renal HTN Urgency-- on meds, BP better controlled Cholecystitis -- GI eval ESRD on HD-- Renal eval, HD per Renal Check leg arterial doppler- had h/o ostemyelitis of right foot Spoke with ICU attending, Resident and staff
--- NOTE | 2016-07-09 12:43 | CONSULT ---
Consult Consult Specialty:: Nephrology ( [place]/ [place]) Referred by:: Edna Alvarado Reason for Consultation:: 25 y/o AA female admitted with uncontrolled Hypertension, feeling weak, and the finding of profound hyperglycemia and DKA. The patient has ESRD and had been on HD through an AVF on the left UE. Her complex medical history is significant fro ESRD, Insulin dependent DM, H/o DDVT , PE ( on Coumadin), Seizure disorder, Extreme non-compliance with diet, dialysis and medications. Her interdialytic weights had been massive, in spite of consistent couselling and teaching. - History Source History Provided By: Patient, Medical Record Limitations to Obtaining History: Clinical Condition (In the ICU, complaining of extreme weakness.) - Past Medical History Cardio/Vascular: Yes: HTN, Other (thrombus in heart per echo 11/2013; ? subclavian vein thromboses s/p dialysis catheters in the past) Pulmonary: Yes: Pulmonary Embolus Renal/: Yes: Renal Failure, Hemodialysis ...LMP: 10/02/15 ...LMP Comment: Patient denies ...: No Heme/Onc: Yes: Anemia Infectious Disease: Yes: MRSA (history of bacteremia, recent mrsa foot abscess) Endocrine: Yes: Diabetes Mellitus (type 1 on insulin pump) Additional Medical History: DVT, PE on coumadin - Past Surgical History Past Surgical History: Yes: AV Fistula/Graft (Right arm) - Alcohol/Substance Use Hx Alcohol Use: No History of Substance Use: reports: None - Smoking History Smoking history: Never smoked Have you smoked in the past 12 months: No Aproximately how many cigarettes per day: 10 - Social History Usual Living Arrangement: With Parent ADL: Independent Occupation: unemployed History of Recent Travel: No Home Medications - Allergies Allergies/Adverse Reactions: Allergies Allergy/AdvReac Type Severity Reaction Status Date / Time No Known Drug Allergies Allergy Verified 07/08/16 22:22 - Home Medications Home Medications: Ambulatory Orders Sevelamer Carbonate [Renvela -] 800 mg PO TID 09/22/15 Oxycodone HCl/Acetaminophen [Percocet 5-325 mg Tablet] 1 tab PO Q6H PRN #10 tablet MDD 4 11/11/15 Gabapentin 100 mg PO TID 03/11/16 Clonidine HCl [Catapres -] 0.6 mg PO TID #120 tablet 05/07/16 Insulin (Levemir) [Levemir Vial] 8 units SQ HS #10 ml 05/07/16 Insulin (Levemir) [Levemir Vial] 15 units SQ BID@0700,2200 #10 ml 05/07/16 Insulin Lispro [Humalog Kwikpen U-200] 200 unit SQ PRN PRN #15 insuln.pen Labetalol HCl [Normodyne -] 400 mg PO BID #60 tablet 05/07/16 Miscellaneous Medical Supply [Glucometer Device] 1 each SQ ASDIR #1 kit Miscellaneous Medical Supply [Glucometer Test Strips #100] 1 each SQ ASDIR #10 box 05/07/16 Miscellaneous Medical Supply [Lancets] 1 each SQ ASDIR #1 box 05/07/16 Mupirocin Cream [Bactroban 2% Cream -] 1 applic TP BID #1 tube 05/07/16 Nifedipine ER [Procardia XL -] 30 mg PO DAILY #30 tab.er.24 05/07/16 Metoprolol Succinate [Toprol Xl -] 100 mg PO DAILY 07/09/16 Family Disease History - Family Disease History Family Disease History: Diabetes: Grandparent (HTN), Heart Disease: Grandparent , Other: Father (unknown), Mother (HTN) Review of Systems - Review of Systems Constitutional: reports: Malaise, Weakness Neck: denies: No Symptoms, Decreased ROM, Lumps, Pain on Movement, Stiffness, Swollen Glands, Tenderness, Other Respiratory: reports: SOB Gastrointestinal: reports: Bloating Neurological: reports: Weakness Hematology/Lymphatic: reports: Easily Bruised Physical Exam Vital Signs: Vital Signs Temperature 97.5 F L 07/09/16 02:41 Pulse Rate 78 07/09/16 10:00 Respiratory Rate 16 07/09/16 10:00 Blood Pressure 117/65 07/09/16 10:00 O2 Sat by Pulse Oximetry (%) 98 07/09/16 09:00 Constitutional: Yes: Anxious Eyes: No: WNL, Conjunctiva Clear, EOM Intact, Cataracts, Diplopia, Occular Prosthesis, PERRL, Ptosis, Sclera Icterus, Tearing, Other HENT: No: WNL, Atraumatic, Normocephalic, Drooling, Epistaxis, Hoarseness, Nasal Congestion, Pharyngeal Erythema, Rhinnorhea, Thrush, Tonsillar Exudate, Other Neck: Yes: Supple Cardiovascular: Yes: Regular Rate and Rhythm, S1, S2 Respiratory: Yes: CTA Bilaterally, Diminished Gastrointestinal: Yes: Normal Bowel Sounds, Soft, Distention Extremities: Yes: Other (AVF Left arm) Edema: Yes Edema: LLE: Trace, RLE: Trace Labs: CBC, BMP 07/09/16 03:40 07/09/16 07:50 Problem List - Problems (1) DKA, type 1 Code(s): E10.10 - TYPE 1 DIABETES MELLITUS WITH KETOACIDOSIS WITHOUT COMA Qualifiers: Diabetes mellitus complication detail: without coma Qualified Code(s): E10.10 - Type 1 diabetes mellitus with ketoacidosis without coma (2) HTN (hypertension) Code(s): I10 - ESSENTIAL (PRIMARY) HYPERTENSION Qualifiers: Hypertension type: essential hypertension Qualified Code(s): I10 - Essential (primary) hypertension (3) Diabetes mellitus, insulin dependent (IDDM), uncontrolled Code(s): E10.65 - TYPE 1 DIABETES MELLITUS WITH HYPERGLYCEMIA (4) History of pulmonary embolus (PE) Code(s): Z86.711 - PERSONAL HISTORY OF PULMONARY EMBOLISM (5) ESRD (end stage renal disease) on dialysis Code(s): N18.6 - END STAGE RENAL DISEASE Z99.2 - DEPENDENCE ON RENAL DIALYSIS Assessment/Plan Patient with ESRD, admitted with Diabetic Keto acidosis. In the ICU. Blood sugar being controlled by IV Insulin. The BP was > 200 mm Hg systolic on admission. Improving on the current regimen. Patient had HD prior to admission yesterday. Next dialysis scheduled for tomorrow. Orders written. Thanks again. Will follow with you. Susie Peter MD
[2016-07-09] MEDS: HEPARIN NA (PORCINE) 5,000 UNITS/ML 1ML VIAL SQ SCH ×2 (13:27→21:44)
[2016-07-09 13:29] LABS: CALCIUM 8.4 mg/dL (8.5-10.1); CREATININE 4.4 mg/dL (0.55-1.02)
--- NOTE | 2016-07-09 16:14 | EKG ---
Test Reason : Blood Pressure : / mmHG Vent. Rate : 091 BPM Atrial Rate : 091 BPM P-R Int : 194 ms QRS Dur : 072 ms QT Int : 380 ms P-R-T Axes : 029 -18 042 degrees QTc Int : 467 ms NORMAL SINUS RHYTHM ANTERIOR INFARCT (CITED ON OR BEFORE 11-MAR-2016) ABNORMAL ECG WHEN COMPARED WITH ECG OF 01-MAY-2016 07:08, NO SIGNIFICANT CHANGE WAS FOUND Confirmed by RAMANDEEP KATHLEEN, WESLEY ([id number]) on 07/09/2016 4:14:39 PM Referred By: Confirmed By:WESLEY SABILLON MD
[2016-07-09] MEDS ORDERED: INSULIN DETEMIR 100 UNITS/ML MDV SQ ONE (17:35)
--- NOTE | 2016-07-09 17:35 | PN ---
Physical Exam: SUBJECTIVE: Patient seen and examined at bed side. s patient feeling well, in no Acute disteress. denies cp, fevers, chills, n/v/d/c, cough, recent sick contacts. reports anurea Right LLE swelling and right anterior thigh pain. OBJECTIVE: Vital Signs Period Temp Pulse Resp BP Sys/Ames Pulse Ox Last 24 Hr 97.2 F-97.6 F 77-86 15-18 117-160/65-100 98-99 GENERAL: The patient is awake, alert, and fully oriented, in no acute distress. HEAD: Normal with no signs of trauma. EYES: PERRL, extraocular movements intact, sclera anicteric, conjunctiva clear. No ptosis. ENT: Ears normal, nares patent, oropharynx clear without exudates, moist mucous membranes. NECK: Trachea midline, full range of motion, supple. LUNGS: Breath sounds equal, clear to auscultation bilaterally, no wheezes, no crackles, no accessory muscle use. HEART: Regular rate and rhythm, S1, S2 without murmur, rub or gallop. ABDOMEN: Soft, nontender, nondistended, normoactive bowel sounds, no guarding, no rebound, no hepatosplenomegaly, no masses. EXTREMITIES: left upper extremity AV Fistula/Graft. right lower extremity larger than right, no pitting edema, right anterior superior thigh induration. bilateral feet dry skin no open ulceration. +1 right +2 left pedal pulses NEUROLOGICAL: Normal speech, gait not observed. PSYCH: Normal mood, normal affect. SKIN: Warm, dry, normal turgor, no rashes or lesions noted Laboratory Results - last 24 hr 07/09/16 07/09/16 07/09/16 02:59 03:40 03:40 WBC 9.9 RBC 3.32 L Hgb 7.9 L Hct 26.5 L MCV 79.8 L MCHC 29.8 L RDW 18.4 H Plt Count 452 H MPV 9.1 Neutrophils % 82.5 Lymphocytes % 8.5 D Monocytes % 6.5 Eosinophils % 1.4 Basophils % 1.1 Sodium 134 L Potassium 4.7 Chloride 94 L Carbon Dioxide 15 L D Anion Gap 25 H BUN 35 H D Creatinine 3.8 H Creat Clearance w eGFR 14.36 POC Glucometer > 400 Random Glucose 493 H* D Lactic Acid Calcium 8.3 L Phosphorus Magnesium Total Bilirubin 0.6 AST 22 ALT 27 Alkaline Phosphatase 1222 H Creatine Kinase Troponin I B-Natriuretic Peptide Total Protein 7.4 Albumin 2.6 L Acetone, Qual Hepatitis C Antibody 07/09/16 07/09/16 07/09/16 03:40 03:40 03:40 WBC RBC Hgb Hct MCV MCHC RDW Plt Count MPV Neutrophils % Lymphocytes % Monocytes % Eosinophils % Basophils % Sodium Potassium Chloride Carbon Dioxide Anion Gap BUN Creatinine Creat Clearance w eGFR POC Glucometer Random Glucose Lactic Acid 1.066 Calcium Phosphorus 4.7 Magnesium 2.0 Total Bilirubin AST ALT Alkaline Phosphatase Creatine Kinase 179 Troponin I < 0.02 B-Natriuretic Peptide 75727.46 H Total Protein Albumin Acetone, Qual Positive moderate 2+ H Hepatitis C Antibody 07/09/16 07/09/16 07/09/16 04:11 05:06 06:25 WBC RBC Hgb Hct MCV MCHC RDW Plt Count MPV Neutrophils % Lymphocytes % Monocytes % Eosinophils % Basophils % Sodium Potassium Chloride Carbon Dioxide Anion Gap BUN Creatinine Creat Clearance w eGFR POC Glucometer > 400 > [phone] Random Glucose Lactic Acid Calcium Phosphorus Magnesium Total Bilirubin AST ALT Alkaline Phosphatase Creatine Kinase Troponin I B-Natriuretic Peptide Total Protein Albumin Acetone, Qual Hepatitis C Antibody 07/09/16 07/09/16 07/09/16 07:50 07:57 09:17 WBC RBC Hgb Hct MCV MCHC RDW Plt Count MPV Neutrophils % Lymphocytes % Monocytes % Eosinophils % Basophils % Sodium 134 L Potassium 4.2 Chloride 94 L Carbon Dioxide 21 D Anion Gap 19 H BUN 36 H Creatinine 4.3 H Creat Clearance w eGFR POC Glucometer [phone] Random Glucose 214 H D Lactic Acid Calcium 8.8 Phosphorus Magnesium Total Bilirubin AST ALT Alkaline Phosphatase Creatine Kinase Troponin I B-Natriuretic Peptide Total Protein Albumin Acetone, Qual Hepatitis C Antibody 07/09/16 07/09/16 07/09/16 10:05 11:00 12:28 WBC RBC Hgb Hct MCV MCHC RDW Plt Count MPV Neutrophils % Lymphocytes % Monocytes % Eosinophils % Basophils % Sodium Potassium Chloride Carbon Dioxide Anion Gap BUN Creatinine Creat Clearance w eGFR POC Glucometer [phone] Random Glucose Lactic Acid Calcium Phosphorus Magnesium Total Bilirubin AST ALT Alkaline Phosphatase Creatine Kinase Troponin I B-Natriuretic Peptide Total Protein Albumin Acetone, Qual Hepatitis C Antibody Cancelled 07/09/16 12:28 WBC RBC Hgb Hct MCV MCHC RDW Plt Count MPV Neutrophils % Lymphocytes % Monocytes % Eosinophils % Basophils % Sodium 135 L Potassium 5.2 H D Chloride 96 L Carbon Dioxide 25 Anion Gap 14 BUN 38 H Creatinine 4.4 H Creat Clearance w eGFR POC Glucometer Random Glucose 88 D Lactic Acid Calcium 8.4 L Phosphorus Magnesium Total Bilirubin AST ALT Alkaline Phosphatase Creatine Kinase Troponin I B-Natriuretic Peptide Total Protein Albumin Acetone, Qual Hepatitis C Antibody Active Medications Generic Name Dose Route Start Last Admin Trade Name Freq PRN Reason Stop Dose Admin Epoetin Abiel 10,000 unit 07/10/16 13:15 Procrit - IVPUSH 07/10/16 13:16 ONCE ONE Gabapentin 100 mg 07/09/16 06:00 07/09/16 13:27 Neurontin - PO 100 mg TID ROSA MARIA Administration Heparin Sodium (Porcine) 5,000 unit 07/09/16 14:00 07/09/16 13:27 Heparin - SQ 5,000 unit TID ROSA MARIA Administration Insulin Aspart 1 units 07/09/16 16:30 Novolog Vial SQ ACHS ROSA MARIA Protocol Labetalol HCl 200 mg 07/09/16 06:00 07/09/16 13:27 Normodyne - PO 200 mg TID ROSA MARIA Administration Nifedipine 30 mg 07/09/16 10:00 07/09/16 09:19 Procardia Xl - PO 30 mg DAILY ROSA MARIA Administration Sevelamer Carbonate 800 mg 07/09/16 08:00 07/09/16 12:47 Renvela - PO 800 mg TIDCM ROSA MARIA Administration ASSESSMENT/PLAN: Pt is a 25yr old woman with PMHx including DM1 and ESRD on HD //. Pt presents to the ER from HD on 07/08 with CC of hypertension. Pt now the the ICU for management of hyperglycemia requiring insulin drip, leukocytosis ( reactionary?) pneumonia vs pulm edema. Pulm -o2 support prn for sat >94% -Nebulizers prn -Incentive spirometer -repeat chest xray ID: leukocytosis reactionary to DKA, afebrile, vitals stable. -f/u cultures - no antibiotics warted at this time. Cardiovascular: BP was > 200 mm Hg systolic on admission. BP improved now 128/ 82 HR 83. -Consult -Will continue pt on labetalol/ccb/catapress -f/u enzymes -duplex to rule out DVT as RLE with >edema vs left and listed hx of PE LLE swelling No DVT in the right or left lower extremity on doppler GI Elevated alk phose GI consulted. Renal -Continue HD m/w/f +prn -Consult -Continue home renal meds -Monitor electrolytes -Next dialysis scheduled for tomorrow. Endo: -Consult -Gap closed, d/c insulin drip, repeat bmp if gap reopens start insulin drip. -Transition to subq when glucose <250, pt tolerated po and gap continue to be closed. -BGM q1 while on insulin drip -BMP Q3-4 -Monitor electrolytes -IVF if necessary, pt tolerating po fluids and risk for volume overload, patient refusing IV fluids. Neuro -Pain management -Pt with round bilateral nonreactive dilated pupils (denies recreational drug use), neuro assessment otherwise unremarkable but would consider head CT/ophtha consult Prophylactic -DVT- heparin sq -Continue home ppi Visit type - Emergency Visit Emergency Visit: Yes ED Registration Date: 07/09/16 Care time: The patient presented to the Emergency Department on the above date and was hospitalized for further evaluation of their emergent condition. - New Patient This patient is new to me today: Yes Date on this admission: 07/09/16 - Critical Care Critical Care patient: Yes Total Critical Care Time (in minutes): 47 Critical Care Statement: The care of this patient involved high complexity decision making to prevent further life threatening deterioration of the patient 's condition and/or to evalute & treat vital organ system(s) failure or risk of failure.
[2016-07-09] MEDS: INSULIN (NOVOLOG) ASPART 100 UNITS/ML 10ML VIAL SQ SCH ×2 (18:22→22:46)
[2016-07-09] MEDS: INSULIN DETEMIR 100 UNITS/ML MDV SQ SCH (18:23)
[2016-07-09 18:39] LABS: CALCIUM 8.4 mg/dL (8.5-10.1); COCKROFT - GAULT 19.737; CREATININE 4.7 mg/dL (0.55-1.02)
--- NOTE | 2016-07-09 18:51 | CONSULT ---
Consult Consult Specialty:: endocrine Reason for Consultation:: iddm uncontrolled - History of Present Illness Chief Complaint: high sugars History of Present Illness: iddm esrd 25 y/o AA female admitted with uncontrolled Hypertension, feeling weak , and the finding of profound hyperglycemia and DKA. The patient has ESRD and had been on HD through an AVF on the left UE. has elevated sugars even on insulin pump using it for bolus only ,yet likes insulin pens - History Source History Provided By: Patient - Past Medical History Cardio/Vascular: Yes: HTN, Other (thrombus in heart per echo 11/2013; ? subclavian vein thromboses s/p dialysis catheters in the past) Pulmonary: Yes: Pulmonary Embolus Renal/: Yes: Renal Failure, Hemodialysis ...LMP: 10/02/15 ...LMP Comment: Patient denies ...: No Infectious Disease: Yes: MRSA (history of bacteremia, recent mrsa foot abscess) Endocrine: Yes: Diabetes Mellitus (type 1 on insulin pump) Additional Medical History: DVT, PE on coumadin - Past Surgical History Past Surgical History: Yes: AV Fistula/Graft (Right arm) - Alcohol/Substance Use Hx Alcohol Use: No History of Substance Use: reports: None - Smoking History Smoking history: Never smoked Have you smoked in the past 12 months: No Aproximately how many cigarettes per day: 10 - Social History Usual Living Arrangement: With Parent ADL: Independent Occupation: unemployed History of Recent Travel: No Home Medications - Allergies Allergies/Adverse Reactions: Allergies Allergy/AdvReac Type Severity Reaction Status Date / Time No Known Drug Allergies Allergy Verified 07/08/16 22:22 - Home Medications Home Medications: Ambulatory Orders Sevelamer Carbonate [Renvela -] 800 mg PO TID 09/22/15 Oxycodone HCl/Acetaminophen [Percocet 5-325 mg Tablet] 1 tab PO Q6H PRN #10 tablet MDD 4 11/11/15 Gabapentin 100 mg PO TID 03/11/16 Clonidine HCl [Catapres -] 0.6 mg PO TID #120 tablet 05/07/16 Insulin (Levemir) [Levemir Vial] 8 units SQ HS #10 ml 05/07/16 Insulin (Levemir) [Levemir Vial] 15 units SQ BID@0700,2200 #10 ml 05/07/16 Insulin Lispro [Humalog Kwikpen U-200] 200 unit SQ PRN PRN #15 insuln.pen Labetalol HCl [Normodyne -] 400 mg PO BID #60 tablet 05/07/16 Miscellaneous Medical Supply [Glucometer Device] 1 each SQ ASDIR #1 kit Miscellaneous Medical Supply [Glucometer Test Strips #100] 1 each SQ ASDIR #10 box 05/07/16 Miscellaneous Medical Supply [Lancets] 1 each SQ ASDIR #1 box 05/07/16 Mupirocin Cream [Bactroban 2% Cream -] 1 applic TP BID #1 tube 05/07/16 Nifedipine ER [Procardia XL -] 30 mg PO DAILY #30 tab.er.24 05/07/16 Metoprolol Succinate [Toprol Xl -] 100 mg PO DAILY 07/09/16 Family Disease History - Family Disease History Family Disease History: Diabetes: Grandparent (HTN), Heart Disease: Grandparent , Other: Father (unknown), Mother (HTN) Review of Systems - Review of Systems Constitutional: reports: Malaise Eyes: reports: Blurred Vision HENT: reports: Nasal Congestion Neck: reports: No Symptoms Cardiovascular: reports: Palpitations, Shortness of Breath Respiratory: reports: Exercise Intolerance, SOB, SOB on Exertion Gastrointestinal: reports: No Symptoms Genitourinary: reports: No Symptoms Musculoskeletal: reports: Muscle Pain, Muscle Cramps, Muscle Weakness Neurological: reports: Weakness Endocrine: reports: Unexplained Weight Gain Physical Exam Vital Signs: Vital Signs Temperature 97.6 F 07/09/16 14:00 Pulse Rate 88 07/09/16 18:00 Respiratory Rate 16 07/09/16 18:00 Blood Pressure 128/68 07/09/16 18:00 O2 Sat by Pulse Oximetry (%) 98 07/09/16 09:00 Constitutional: Yes: Calm Eyes: Yes: EOM Intact HENT: Yes: Normocephalic Neck: Yes: Trachea Midline Cardiovascular: Yes: Regular Rate and Rhythm Respiratory: Yes: CTA Bilaterally Gastrointestinal: Yes: Normal Bowel Sounds ...Rectal Exam: Yes: Deferred Musculoskeletal: Yes: Muscle Pain, Muscle Weakness Extremities: Yes: WNL Edema: No Neurological: Yes: Alert, Oriented Labs: CBC, BMP 07/09/16 03:40 Problem List - Problems (1) DKA, type 1 Code(s): E10.10 - TYPE 1 DIABETES MELLITUS WITH KETOACIDOSIS WITHOUT COMA Qualifiers: Diabetes mellitus complication detail: without coma Qualified Code(s): E10.10 - Type 1 diabetes mellitus with ketoacidosis without coma (2) Acute respiratory failure Code(s): J96.00 - ACUTE RESPIRATORY FAILURE, UNSP W HYPOXIA OR HYPERCAPNIA (3) Diabetes mellitus, insulin dependent (IDDM), uncontrolled Code(s): E10.65 - TYPE 1 DIABETES MELLITUS WITH HYPERGLYCEMIA Assessment/Plan Current Active Problems Chest pain (Acute) DKA, type 1 (Acute) Leukocytosis (Acute) HTN (hypertension) (Chronic) Abnormal Lab Results 07/08/16 07/08/16 07/08/16 23:00 23:00 23:00 WBC 11.6 H RBC Hgb 8.5 L Hct 28.7 L MCV 78.1 L MCHC 29.6 L RDW 18.2 H Plt Count 483 H D Neutrophils % 84.7 H D Lymphocytes % 6.9 L D INR 1.27 H PTT (Actin FS) 38.0 H D Sodium 134 L Potassium Chloride 94 L Carbon Dioxide 20 L Anion Gap 20 H BUN 27 H D Creatinine 3.5 H D Random Glucose 308 H* D Calcium Alkaline Phosphatase 1336 H D Creatine Kinase 200 H D CK-MB (CK-2) 5.695 H B-Natriuretic Peptide Albumin 2.9 L Acetone, Qual 07/08/16 07/09/16 07/09/16 23:00 03:40 03:40 WBC RBC 3.32 L Hgb 7.9 L Hct 26.5 L MCV 79.8 L MCHC 29.8 L RDW 18.4 H Plt Count 452 H Neutrophils % Lymphocytes % INR PTT (Actin FS) Sodium 134 L Potassium Chloride 94 L Carbon Dioxide 15 L D Anion Gap 25 H BUN 35 H D Creatinine 3.8 H Random Glucose 493 H* D Calcium 8.3 L Alkaline Phosphatase 1222 H Creatine Kinase CK-MB (CK-2) B-Natriuretic Peptide Albumin 2.6 L Acetone, Qual Positive small 1+ H 07/09/16 07/09/16 07/09/16 03:40 03:40 07:50 WBC RBC Hgb Hct MCV MCHC RDW Plt Count Neutrophils % Lymphocytes % INR PTT (Actin FS) Sodium 134 L Potassium Chloride 94 L Carbon Dioxide Anion Gap 19 H BUN 36 H Creatinine 4.3 H Random Glucose 214 H D Calcium Alkaline Phosphatase Creatine Kinase CK-MB (CK-2) B-Natriuretic Peptide 17165.46 H Albumin Acetone, Qual Positive moderate 2+ H 07/09/16 12:28 WBC RBC Hgb Hct MCV MCHC RDW Plt Count Neutrophils % Lymphocytes % INR PTT (Actin FS) Sodium 135 L Potassium 5.2 H D Chloride 96 L Carbon Dioxide Anion Gap BUN 38 H Creatinine 4.4 H Random Glucose Calcium 8.4 L Alkaline Phosphatase Creatine Kinase CK-MB (CK-2) B-Natriuretic Peptide Albumin Acetone, Qual plan: resolved dka given willing to use pen vs pump levemir 25 units am daily bgm scale for novolog coverage nutrition consult hb a1c
--- NOTE | 2016-07-09 19:12 | CON.GI ---
Consult Consult Specialty:: GI Reason for Consultation:: hepatomegaly - History of Present Illness History of Present Illness: 25 F well-known to our service with h/o poorly controlled DM type 1, poorly controlled HTN, ESRD on HD admitted with accelerated HTN with no neuro findings. Called for evaluation of hepatomegaly and markedly elevated alk phos. She has no prior h/o hep B/C . She has a significantly elevated BNP. She has no abdominal pain. - History Source History Provided By: Medical Record Limitations to Obtaining History: No Limitations - Past Medical History Cardio/Vascular: Yes: HTN, Other (thrombus in heart per echo 11/2013; ? subclavian vein thromboses s/p dialysis catheters in the past) Pulmonary: Yes: Pulmonary Embolus Renal/: Yes: Renal Failure, Hemodialysis ...LMP: 10/02/15 ...LMP Comment: Patient denies ...: No Infectious Disease: Yes: MRSA (history of bacteremia, recent mrsa foot abscess) Endocrine: Yes: Diabetes Mellitus (type 1 on insulin pump) Additional Medical History: DVT, PE on coumadin - Past Surgical History Past Surgical History: Yes: AV Fistula/Graft (Right arm) - Alcohol/Substance Use Hx Alcohol Use: No History of Substance Use: reports: None - Smoking History Smoking history: Never smoked Have you smoked in the past 12 months: No Aproximately how many cigarettes per day: 10 - Social History Usual Living Arrangement: With Parent ADL: Independent Occupation: unemployed History of Recent Travel: No Home Medications - Allergies Allergies/Adverse Reactions: Allergies Allergy/AdvReac Type Severity Reaction Status Date / Time No Known Drug Allergies Allergy Verified 07/08/16 22:22 - Home Medications Home Medications: Ambulatory Orders Sevelamer Carbonate [Renvela -] 800 mg PO TID 09/22/15 Oxycodone HCl/Acetaminophen [Percocet 5-325 mg Tablet] 1 tab PO Q6H PRN #10 tablet MDD 4 11/11/15 Gabapentin 100 mg PO TID 03/11/16 Clonidine HCl [Catapres -] 0.6 mg PO TID #120 tablet 05/07/16 Insulin (Levemir) [Levemir Vial] 8 units SQ HS #10 ml 05/07/16 Insulin (Levemir) [Levemir Vial] 15 units SQ BID@0700,2200 #10 ml 05/07/16 Insulin Lispro [Humalog Kwikpen U-200] 200 unit SQ PRN PRN #15 insuln.pen Labetalol HCl [Normodyne -] 400 mg PO BID #60 tablet 05/07/16 Miscellaneous Medical Supply [Glucometer Device] 1 each SQ ASDIR #1 kit Miscellaneous Medical Supply [Glucometer Test Strips #100] 1 each SQ ASDIR #10 box 05/07/16 Miscellaneous Medical Supply [Lancets] 1 each SQ ASDIR #1 box 05/07/16 Mupirocin Cream [Bactroban 2% Cream -] 1 applic TP BID #1 tube 05/07/16 Nifedipine ER [Procardia XL -] 30 mg PO DAILY #30 tab.er.24 05/07/16 Metoprolol Succinate [Toprol Xl -] 100 mg PO DAILY 07/09/16 Family Disease History - Family Disease History Family Disease History: Diabetes: Grandparent (HTN), Heart Disease: Grandparent , Other: Father (unknown), Mother (HTN) Physical Exam-GI Vital Signs: Vital Signs Temperature 97.6 F 07/09/16 14:00 Pulse Rate 88 07/09/16 18:00 Respiratory Rate 16 07/09/16 18:00 Blood Pressure 128/68 07/09/16 18:00 O2 Sat by Pulse Oximetry (%) 98 07/09/16 09:00 Constitutional: Yes: Well Nourished, No Distress, Calm HENT: Yes: Normocephalic Neck: Yes: Supple Cardiovascular: Yes: Regular Rate and Rhythm Respiratory: Yes: CTA Bilaterally Gastrointestinal Inspection: Yes: WNL ...Auscultate: Yes: Normoactive Bowel Sounds ...Palpate: Yes: Soft ...Percussion: Yes: Dullness Labs: CBC, BMP 07/09/16 03:40 07/09/16 17:00 INR, PTT INR 1.27 (0.82-1.09) H 07/08/16 23:00 Imaging - Results Ultrasound: Report Reviewed (gb wall 5mm) Assessment/Plan 25 F with multiple serious medical problems now with hepatomegaly and markedly elevated alk phos Possibilities include: --R heart failure with hepatic congestion- treatment of underlying problem should lead to improvement --Acalculous cholecystitis-HIDA scan to better evaluate --PBC-Check AMA --Elevated alk phos may be from bone (osteo + renal osteodystrophy) Fractionate alk phos for bone and liver fractions
[2016-07-09] MEDS: cloNIDine HCL 0.1 MG TABLET PO SCH (21:45)
[2016-07-09 22:36] LABS: CALCIUM 8.4 mg/dL (8.5-10.1); COCKROFT - GAULT 18.19; CREATININE 5.1 mg/dL (0.55-1.02)
[2016-07-10] MEDS: LABETALOL HCL 200 MG TABLET (FP) PO SCH ×3 (05:10→22:16)
[2016-07-10] MEDS: cloNIDine HCL 0.1 MG TABLET PO SCH ×3 (05:10→22:15)
--- NOTE | 2016-07-10 05:38 | PN ---
Physical Exam: SUBJECTIVE:Patient seen and examined at bed side in ICU. patient feeling well, in no Acute disteress. denies cp, fevers, chills, n/v/d/c, cough, recent sick contacts. was unable to very and assess the choice of home antihypertensive medications, will revaluate OBJECTIVE: Vital Signs Period Temp Pulse Resp BP Sys/Ames Pulse Ox Last 24 Hr 97.2 F-98.5 F 77-88 16-20 117-172/65-106 98-98 GENERAL: The patient is awake, alert, and fully oriented, in no acute distress. sitting up on side of bed conformably, NAD HEAD: Normal with no signs of trauma. EYES: PERRL, extraocular movements intact, sclera anicteric, conjunctiva clear. No ptosis. ENT: Ears normal, nares patent, oropharynx clear without exudates, moist mucous membranes. NECK: Trachea midline, full range of motion, supple. LUNGS: Breath sounds equal, clear to auscultation bilaterally, no wheezes, no crackles, no accessory muscle use. HEART: Regular rate and rhythm, S1, S2 without murmur, rub or gallop. ABDOMEN: Soft, nontender, nondistended, normoactive bowel sounds, no guarding, no rebound, no hepatosplenomegaly, no masses. EXTREMITIES: left upper extremity AV Fistula/Graft. right lower extremity larger than right, no pitting edema, right anterior superior thigh induration. bilateral feet dry skin no open ulceration. +1 right +2 left pedal pulses PSYCH: Normal mood, normal affect. SKIN: Warm, dry, normal turgor, no rashes or lesions noted Laboratory Results - last 24 hr 07/09/16 07/09/16 07/09/16 02:59 04:11 05:06 Sodium Potassium Chloride Carbon Dioxide Anion Gap BUN Creatinine POC Glucometer > 400 > 400 > 400 Random Glucose Calcium Hepatitis C Antibody 07/09/16 07/09/16 07/09/16 06:25 07:50 07:57 Sodium 134 L Potassium 4.2 Chloride 94 L Carbon Dioxide 21 D Anion Gap 19 H BUN 36 H Creatinine 4.3 H POC Glucometer 389.91506 285.49295 Random Glucose 214 H D Calcium 8.8 Hepatitis C Antibody 07/09/16 07/09/16 07/09/16 09:17 10:05 11:00 Sodium Potassium Chloride Carbon Dioxide Anion Gap BUN Creatinine POC Glucometer 198.94483 155.45329 138.38485 Random Glucose Calcium Hepatitis C Antibody 07/09/16 07/09/16 07/09/16 12:28 12:28 12:28 Sodium 135 L Potassium 5.2 H D Chloride 96 L Carbon Dioxide 25 Anion Gap 14 BUN 38 H Creatinine 4.4 H POC Glucometer 155.99541 Random Glucose 88 D Calcium 8.4 L Hepatitis C Antibody Cancelled 07/09/16 07/09/16 07/09/16 13:50 17:00 21:30 Sodium 132 L 132 L Potassium 5.8 H 5.2 H Chloride 93 L 93 L Carbon Dioxide 19 L D 23 D Anion Gap 20 H 16 BUN 46 H D 46 H Creatinine 4.7 H 5.1 H POC Glucometer 181.18819 Random Glucose 428 H* D 321 H* D Calcium 8.4 L 8.4 L Hepatitis C Antibody Active Medications Generic Name Dose Route Start Last Admin Trade Name Freq PRN Reason Stop Dose Admin Clonidine 0.3 mg 07/09/16 22:00 07/10/16 05:10 Catapres - PO 0.3 mg TID [facility] Administration Epoetin Abiel 10,000 unit 07/10/16 13:15 Procrit - IVPUSH 07/10/16 13:16 ONCE ONE Gabapentin 100 mg 07/09/16 06:00 07/09/16 21:44 Neurontin - PO 100 mg TID [facility] Administration Heparin Sodium (Porcine) 5,000 unit 07/09/16 14:00 07/09/16 21:44 Heparin - SQ 5,000 unit TID [facility] Administration Insulin Aspart 1 units 07/09/16 16:30 07/09/16 22:46 Novolog Vial SQ 8 units ACHS [facility] Administration Protocol Insulin Detemir 25 units 07/09/16 18:00 07/09/16 18:23 Levemir Vial SQ 25 units DAILY@0700 [facility] Administration Labetalol HCl 200 mg 07/09/16 06:00 07/10/16 05:10 Normodyne - PO 200 mg TID [facility] Administration Nifedipine 30 mg 07/09/16 10:00 07/09/16 09:19 Procardia Xl - PO 30 mg DAILY [facility] Administration Sevelamer Carbonate 800 mg 07/09/16 08:00 07/09/16 18:25 Renvela - PO 800 mg TIDCM [facility] Administration ASSESSMENT/PLAN: Pt is a 25yr old woman with PMHx including DM1 and ESRD on HD m/w/f. Pt presents to the ER from HD on 07/08 with CC of hypertension. Pt now the the ICU for management of hyperglycemia requiring insulin drip, leukocytosis ( reactionary), clinically better Pulm -o2 support prn for sat >94% -Nebulizers prn -Incentive spirometer -repeat chest xray ID: leukocytosis reactionary to DKA, afebrile, vitals stable, clinically better -f/u cultures - no antibiotics warted at this time. Cardiovascular: BP was > 200 mm Hg systolic on admission. Bp improved, now elevated. -Consult -Will continue pt on labetalol/Nifedipine -added yesterday 1/2 dose home clonidine: BP stable, to avoid rebound hypertension. - Increase Procardia per pcp Anemia for PRBC transfusion with HD Epogen with HD GI Elevated alk phose GI consulted appreciated. Renal: HD today -Continue HD m/w/f +prn -Consult -Continue home renal meds -Monitor electrolytes -Next dialysis scheduled for tomorrow. Endo: -Transition to subq when glucose <250, pt tolerated po and gap continue to be closed. -BGM q1 while on insulin drip -BMP hs -Monitor electrolytes -IVF if necessary, pt tolerating po fluids and risk for volume overload, patient refusing IV fluids. Neuro -Pain management -Pt with round bilateral nonreactive dilated pupils (denies recreational drug use), neuro assessment otherwise unremarkable but would consider head CT/ophtha consult Prophylactic -DVT- heparin sq -Continue home ppi dispo: transfer to floors. Visit type - Emergency Visit Emergency Visit: Yes ED Registration Date: 07/09/16 Care time: The patient presented to the Emergency Department on the above date and was hospitalized for further evaluation of their emergent condition. - New Patient This patient is new to me today: No - Critical Care Critical Care patient: Yes Total Critical Care Time (in minutes): 40 Critical Care Statement: The care of this patient involved high complexity decision making to prevent further life threatening deterioration of the patient 's condition and/or to evalute & treat vital organ system(s) failure or risk of failure.
[2016-07-10] MEDS ORDERED: HEMOQUE TEST 1 EACH EACH ONE (05:48)
[2016-07-10] MEDS: HEPARIN NA (PORCINE) 5,000 UNITS/ML 1ML VIAL SQ SCH ×4 (05:59→22:16)
[2016-07-10] MEDS: GABAPENTIN 100 MG CAPSULE (FP) PO SCH ×3 (05:59→22:16)
[2016-07-10] MEDS: INSULIN (NOVOLOG) ASPART 100 UNITS/ML 10ML VIAL SQ SCH ×2 (06:00→11:01)
[2016-07-10] MEDS: INSULIN DETEMIR 100 UNITS/ML MDV SQ SCH (06:01)
[2016-07-10 06:05] LABS: HEP B SURFACE AB Reactive (.)
[2016-07-10 06:42] LABS: MCH 23.7 pg (25.7-33.7); MCHC 30.7 g/dl (32.0-36.0); MEAN CELL VOLUME 77.4 fl (80-96); MEAN PLT VOLUME 8.6 fl (7.5-11.1); PLATELET COUNT 500 K/MM3 (134-434); RDW 18.4 % (11.6-15.6)
[2016-07-10 07:17] LABS: CALCIUM 8.2 mg/dL (8.5-10.1); COCKROFT - GAULT 17.1785; CREATININE 5.4 mg/dL (0.55-1.02); MAGNESIUM 2.1 mg/dL (1.8-2.4); PHOSPHOROUS 5.8 mg/dL (2.5-4.9)
--- NOTE | 2016-07-10 08:07 | PN ---
Progress Note (short form) - Note Progress Note: SUBJECTIVE: Patient seen and examined in the ICU. Chart reviewed. Feels better. Comfortable. Blood pressures still running high. OBJECTIVE: Vital Signs 07/10/16 07/10/16 07/10/16 02:00 04:00 06:00 Temperature 98.5 F 98.2 F Pulse Rate 81 80 81 Respiratory 18 20 34 H Rate Blood Pressure 163/104 172/106 170/105 07/10/16 08:00 Temperature Pulse Rate 74 Respiratory 18 Rate Blood Pressure 171/112 Intake & Output 07/09/16 07/10/16 07/10/16 23:59 07:59 15:59 Intake Total 300 250 Balance 300 250 Intake: Oral 300 250 Other: Voiding Method Toilet Active Medications Clonidine (Catapres -) 0.3 mg PO TID [facility] Last Admin: 07/10/16 05:10 Dose: 0.3 mg Epoetin Abiel (Procrit -) 10,000 unit IVPUSH ONCE ONE Stop: 07/10/16 13:16 Gabapentin (Neurontin -) 100 mg PO TID [facility] Last Admin: 07/10/16 05:59 Dose: 100 mg Heparin Sodium (Porcine) (Heparin -) 5,000 unit SQ TID [facility] Last Admin: 07/10/16 05:59 Dose: 5,000 unit Insulin Aspart (Novolog Vial) 1 units SQ [facility] PRN Reason: Protocol Last Admin: 07/10/16 06:00 Dose: Not Given Insulin Detemir (Levemir Vial) 25 units SQ DAILY@0700 [facility] Last Admin: 07/10/16 06:01 Dose: 25 units Labetalol HCl (Normodyne -) 200 mg PO TID [facility] Last Admin: 07/10/16 05:10 Dose: 200 mg Nifedipine (Procardia Xl -) 30 mg PO DAILY [facility] Last Admin: 07/10/16 09:39 Dose: 30 mg Sevelamer Carbonate (Renvela -) 800 mg PO TIDCM [facility] Last Admin: 07/10/16 08:37 Dose: 800 mg CBC, BMP 07/10/16 05:30 07/10/16 05:30 Laboratory Results - last 24 hr 07/09/16 07/09/16 07/09/16 09:17 10:05 11:00 WBC RBC Hgb Hct MCV MCHC RDW Plt Count MPV Sodium Potassium Chloride Carbon Dioxide Anion Gap BUN Creatinine POC Glucometer 198.63529 155.72511 138.31792 Random Glucose Hemoglobin A1c % Calcium Phosphorus Magnesium Hepatitis A Ab Total Hep Bs Antigen Hep Bs Antibody Hep B Core Total Ab Hepatitis C Antibody 07/09/16 07/09/16 07/09/16 12:28 12:28 12:28 WBC RBC Hgb Hct MCV MCHC RDW Plt Count MPV Sodium 135 L Potassium 5.2 H D Chloride 96 L Carbon Dioxide 25 Anion Gap 14 BUN 38 H Creatinine 4.4 H POC Glucometer Random Glucose 88 D Hemoglobin A1c % Calcium 8.4 L Phosphorus Magnesium Hepatitis A Ab Total Negative Hep Bs Antigen Negative Hep Bs Antibody Reactive Hep B Core Total Ab Negative Hepatitis C Antibody Cancelled <0.1 07/09/16 07/09/16 07/09/16 12:28 13:50 16:51 WBC RBC Hgb Hct MCV MCHC RDW Plt Count MPV Sodium Potassium Chloride Carbon Dioxide Anion Gap BUN Creatinine POC Glucometer 155.31644 181.78516 > 400 Random Glucose Hemoglobin A1c % Calcium Phosphorus Magnesium Hepatitis A Ab Total Hep Bs Antigen Hep Bs Antibody Hep B Core Total Ab Hepatitis C Antibody 07/09/16 07/09/16 07/09/16 17:00 21:30 21:30 WBC RBC Hgb Hct MCV MCHC RDW Plt Count MPV Sodium 132 L 132 L Potassium 5.8 H 5.2 H Chloride 93 L 93 L Carbon Dioxide 19 L D 23 D Anion Gap 20 H 16 BUN 46 H D 46 H Creatinine 4.7 H 5.1 H POC Glucometer Random Glucose 428 H* D 321 H* D Hemoglobin A1c % 14.9 H D Calcium 8.4 L 8.4 L Phosphorus Magnesium Hepatitis A Ab Total Hep Bs Antigen Hep Bs Antibody Hep B Core Total Ab Hepatitis C Antibody 07/10/16 07/10/16 05:30 05:30 WBC 10.0 RBC 3.24 L Hgb 7.7 L Hct 25.1 L MCV 77.4 L MCHC 30.7 L RDW 18.4 H Plt Count 500 H MPV 8.6 Sodium 136 Potassium 5.1 Chloride 97 L Carbon Dioxide 25 Anion Gap 14 BUN 52 H Creatinine 5.4 H POC Glucometer Random Glucose 95 D Hemoglobin A1c % Calcium 8.2 L Phosphorus 5.8 H D Magnesium 2.1 Hepatitis A Ab Total Hep Bs Antigen Hep Bs Antibody Hep B Core Total Ab Hepatitis C Antibody Microbiology 07/09/16 08:10 Blood Culture - Preliminary Blood - Peripheral Venous NO GROWTH OBTAINED AFTER 24 HOURS, INCUBATION TO CONTINUE FOR 4 DAYS. PHYSICAL EXAMINATION: Constitutional: Yes: No Distress, Calm Cardiovascular: Yes: Regular Rate and Rhythm Respiratory: Yes: Diminished Gastrointestinal: Yes: Normal Bowel Sounds, Soft. No: Palpable Mass, Tenderness Edema: Yes Edema: LLE: Trace Neurological: Yes: Alert, Oriented Psychiatric: Yes: Alert, Oriented Problem List - Problems (1) DKA, type 1 Code(s): E10.10 - TYPE 1 DIABETES MELLITUS WITH KETOACIDOSIS WITHOUT COMA Qualifiers: Diabetes mellitus complication detail: without coma Qualified Code(s): E10.10 - Type 1 diabetes mellitus with ketoacidosis without coma (2) HTN (hypertension) Code(s): I10 - ESSENTIAL (PRIMARY) HYPERTENSION Qualifiers: Hypertension type: essential hypertension Qualified Code(s): I10 - Essential (primary) hypertension (3) Diabetes mellitus, insulin dependent (IDDM), uncontrolled Code(s): E10.65 - TYPE 1 DIABETES MELLITUS WITH HYPERGLYCEMIA (4) Fluid overload Code(s): E87.70 - FLUID OVERLOAD, UNSPECIFIED Qualifiers: Hypervolemia type: unspecified Qualified Code(s): E87.70 - Fluid overload, unspecified (5) ESRD (end stage renal disease) on dialysis Code(s): N18.6 - END STAGE RENAL DISEASE Z99.2 - DEPENDENCE ON RENAL DIALYSIS ASSESSMENT & PLAN: - Clinically better. - Continue present care. - Monitor blood sugars. - Monitor blood pressure. - Increase Procardia. - GI consult noted/ will discuss. - Will follow. Documentation prepared by Mel Barber, acting as a medical device engineer for Valentine Acuña MD.
[2016-07-10] MEDS: SEVELAMER CARBONATE 800 MG TAB (FP) PO SCH ×3 (08:37→17:30)
[2016-07-10] MEDS: NIFEdipine E.R. 30 MG TABLET (FP) PO SCH (09:39)
[2016-07-10] MEDS ORDERED: NIFEdipine E.R. 30 MG TABLET (FP) PO SCH (09:55)
[2016-07-10 10:36] LABS: CALCIUM 8.6 mg/dL (8.5-10.1); COCKROFT - GAULT 16.286; CREATININE 5.7 mg/dL (0.55-1.02)
[2016-07-10] MEDS ORDERED: NIFEdipine E.R. 30 MG TABLET (FP) PO ONE (11:15)
--- NOTE | 2016-07-10 12:53 | PN ---
Teaching Attending Note Name of Resident: Jasmine Skelton ATTENDING PHYSICIAN STATEMENT I saw and evaluated the patient. I reviewed the resident's note and discussed the case with the resident. I agree with the resident's findings and plan as documented. SUBJECTIVE: Currently off Insulin drip. No CP or SOB. Intake & Output 07/07/16 07/08/16 07/09/16 07/10/16 23:59 23:59 23:59 23:59 Intake Total 1850 250 Balance 1850 250 Weight 143 lb 152 lb 2 oz Last Vital Signs Temp Pulse Resp BP Pulse Ox 98.2 F 72 18 170/100 98 07/10/16 10:00 07/10/16 10:00 07/10/16 10:00 07/10/16 10:00 07/09/16 21:00 Active Medications Clonidine (Catapres -) 0.3 mg PO TID [facility] Epoetin Abiel (Procrit -) 10,000 unit IVPUSH ONCE ONE Stop: 07/10/16 13:16 Gabapentin (Neurontin -) 100 mg PO TID [facility] Heparin Sodium (Porcine) (Heparin -) 5,000 unit SQ TID [facility] Insulin Aspart (Novolog Vial Sliding Scale -) 1 vial SQ ACHS [facility] PRN Reason: Protocol Insulin Detemir (Levemir Vial) 25 units SQ DAILY@0700 [facility] Labetalol HCl (Normodyne -) 200 mg PO TID [facility] Nifedipine (Procardia Xl -) 60 mg PO DAILY [facility] Sevelamer Carbonate (Renvela -) 800 mg PO TIDCM [facility] Constitutional: Yes: NAD Cardiovascular: Yes: Regular Rate and Rhythm Respiratory: Yes: Diminished Gastrointestinal: Yes: Normal Bowel Sounds, Soft. No: Palpable Mass, Tenderness Edema: Yes Edema: LLE: Trace Neurological: Yes: Alert, Oriented Psychiatric: Yes: Alert, Oriented Laboratory Results - last 24 hr 07/09/16 07/09/16 07/09/16 12:28 12:28 12:28 WBC RBC Hgb Hct MCV MCHC RDW Plt Count MPV Sodium 135 L Potassium 5.2 H D Chloride 96 L Carbon Dioxide 25 Anion Gap 14 BUN 38 H Creatinine 4.4 H POC Glucometer Random Glucose 88 D Hemoglobin A1c % Calcium 8.4 L Phosphorus Magnesium Hepatitis A Ab Total Negative Hep Bs Antigen Negative Hep Bs Antibody Reactive Hep B Core Total Ab Negative Hepatitis C Antibody Cancelled <0.1 07/09/16 07/09/16 07/09/16 12:28 13:50 16:51 WBC RBC Hgb Hct MCV MCHC RDW Plt Count MPV Sodium Potassium Chloride Carbon Dioxide Anion Gap BUN Creatinine POC Glucometer 155.23178 181.62321 > 400 Random Glucose Hemoglobin A1c % Calcium Phosphorus Magnesium Hepatitis A Ab Total Hep Bs Antigen Hep Bs Antibody Hep B Core Total Ab Hepatitis C Antibody 07/09/16 07/09/16 07/09/16 17:00 21:30 21:30 WBC RBC Hgb Hct MCV MCHC RDW Plt Count MPV Sodium 132 L 132 L Potassium 5.8 H 5.2 H Chloride 93 L 93 L Carbon Dioxide 19 L D 23 D Anion Gap 20 H 16 BUN 46 H D 46 H Creatinine 4.7 H 5.1 H POC Glucometer Random Glucose 428 H* D 321 H* D Hemoglobin A1c % 14.9 H D Calcium 8.4 L 8.4 L Phosphorus Magnesium Hepatitis A Ab Total Hep Bs Antigen Hep Bs Antibody Hep B Core Total Ab Hepatitis C Antibody 07/10/16 07/10/16 07/10/16 05:30 05:30 09:45 WBC 10.0 RBC 3.24 L Hgb 7.7 L Hct 25.1 L MCV 77.4 L MCHC 30.7 L RDW 18.4 H Plt Count 500 H MPV 8.6 Sodium 136 135 L Potassium 5.1 4.7 Chloride 97 L 99 Carbon Dioxide 25 23 Anion Gap 14 13 BUN 52 H 52 H Creatinine 5.4 H 5.7 H POC Glucometer Random Glucose 95 D 57 L D Hemoglobin A1c % Calcium 8.2 L 8.6 Phosphorus 5.8 H D Magnesium 2.1 Hepatitis A Ab Total Hep Bs Antigen Hep Bs Antibody Hep B Core Total Ab Hepatitis C Antibody Problem List - Problems (1) DKA, type 1 Code(s): E10.10 - TYPE 1 DIABETES MELLITUS WITH KETOACIDOSIS WITHOUT COMA Qualifiers: Diabetes mellitus complication detail: without coma Qualified Code(s): E10.10 - Type 1 diabetes mellitus with ketoacidosis without coma (2) HTN (hypertension) Code(s): I10 - ESSENTIAL (PRIMARY) HYPERTENSION Qualifiers: Hypertension type: essential hypertension Qualified Code(s): I10 - Essential (primary) hypertension (3) Diabetes mellitus, insulin dependent (IDDM), uncontrolled Code(s): E10.65 - TYPE 1 DIABETES MELLITUS WITH HYPERGLYCEMIA (4) Fluid overload Code(s): E87.70 - FLUID OVERLOAD, UNSPECIFIED Qualifiers: Hypervolemia type: unspecified Qualified Code(s): E87.70 - Fluid overload, unspecified (5) ESRD (end stage renal disease) on dialysis Code(s): N18.6 - END STAGE RENAL DISEASE Z99.2 - DEPENDENCE ON RENAL DIALYSIS ASSESSMENT & PLAN: Glycemic control per Endocrine O2 as needed Titrate BP Meds PO as tolerated Floor Dr Ballesteros
[2016-07-10] MEDS ORDERED: EPOETIN ALFA 10,000 UNIT/1 ML VIAL IVPUSH ONE ×2 (13:15→18:30)
--- NOTE | 2016-07-10 15:54 | PN ---
Progress Note (short form) - Note Progress Note: Renal follow up for ESRD on HD Pt seen and examined at the bedside awake and alert no acute complaints denies any abd pain, fever, chills, N/V/D for dialysis today Vital Signs Temperature 97.9 F 07/10/16 15:30 Pulse Rate 81 07/10/16 15:30 Respiratory Rate 18 07/10/16 15:30 Blood Pressure 151/94 07/10/16 15:30 O2 Sat by Pulse Oximetry (%) 98 07/09/16 21:00 Intake & Output 07/07/16 07/08/16 07/09/16 07/10/16 23:59 23:59 23:59 23:59 Intake Total 1850 250 Balance 1850 250 Weight 143 lb 152 lb 2 oz Gen: NAD, awake and alert CVS: RRR, No M/R Lungs: CTA, no rales or wheeze Abd: Soft NT/ND Ext: 1+ Le edema Access: left arm AVF + thrill CBC, BMP 07/10/16 05:30 07/10/16 09:45 Laboratory Tests 05/01/16 05/01/16 07/10/16 07:40 09:16 09:45 Calcium 7.8 L 8.6 AST 267 H D ALT 122 H D Alkaline Phosphatase 1180 H Albumin 3.3 L Acetone, Qual Trace H Current Medications Clonidine (Catapres -) 0.3 mg PO TID [facility] Last Admin: 07/10/16 13:10 Dose: 0.3 mg Epoetin Abiel (Procrit -) 10,000 unit IVPUSH ONCE ONE Stop: 07/10/16 13:16 Gabapentin (Neurontin -) 100 mg PO TID [facility] Last Admin: 07/10/16 13:10 Dose: 100 mg Heparin Sodium (Porcine) (Heparin -) 5,000 unit SQ TID [facility] Last Admin: 07/10/16 13:15 Dose: Not Given Insulin Aspart (Novolog Vial Sliding Scale -) 1 vial SQ [facility] PRN Reason: Protocol Insulin Detemir (Levemir Vial) 25 units SQ DAILY@0700 [facility] Labetalol HCl (Normodyne -) 200 mg PO TID [facility] Last Admin: 07/10/16 13:10 Dose: 200 mg Nifedipine (Procardia Xl -) 60 mg PO DAILY [facility] Sevelamer Carbonate (Renvela -) 800 mg PO TIDCM [facility] Last Admin: 07/10/16 12:52 Dose: 800 mg A/P 25 year old Woman with PMhx of ESRD on HD, Hypertension, DM, Osteomylitis presented with DKA #DKA/Hyperglycemia Insulin as per Endocrine Diabetic Diet Diabetic counseling #ESRD on HD HD today with UF as tolerated Dose all meds for intermittent HD #Hypertension Continue Nifedipine, Labetalol #Anemia for PRBC transfusion with HD Epogen with HD Nathan Vo DO
[2016-07-10] MEDS: INSULIN SLIDING SCALE (NOVOLOG) 1 VIAL SQ SCH ×2 (18:01→22:25)
[2016-07-11] MEDS: cloNIDine HCL 0.1 MG TABLET PO SCH ×3 (06:44→21:57)
[2016-07-11] MEDS: HEPARIN NA (PORCINE) 5,000 UNITS/ML 1ML VIAL SQ SCH ×4 (06:44→22:09)
[2016-07-11] MEDS: LABETALOL HCL 200 MG TABLET (FP) PO SCH ×3 (06:45→21:58)
[2016-07-11] MEDS: GABAPENTIN 100 MG CAPSULE (FP) PO SCH ×3 (06:45→21:58)
[2016-07-11] MEDS ORDERED: INSULIN DETEMIR 100 UNITS/ML MDV SQ SCH ×2 (07:00→08:45)
[2016-07-11 08:09] LABS: MCH 24.1 pg (25.7-33.7); MCHC 30.5 g/dl (32.0-36.0); MEAN PLT VOLUME 8.6 fl (7.5-11.1); PLATELET COUNT 478 K/MM3 (134-434); RDW 18.2 % (11.6-15.6); WHITE BLOOD COUNT 9.7 K/mm3 (4.0-10.0)
[2016-07-11] MEDS: SEVELAMER CARBONATE 800 MG TAB (FP) PO SCH ×3 (08:30→18:01)
[2016-07-11 08:39] LABS: CALCIUM 8.7 mg/dL (8.5-10.1); COCKROFT - GAULT 21.25; CREATININE 4.6 mg/dL (0.55-1.02); MAGNESIUM 1.8 mg/dL (1.8-2.4)
[2016-07-11] MEDS ORDERED: INSULIN (NOVOLOG) ASPART 100 UNITS/ML 10ML VIAL SQ ONE ×2 (08:45→14:00)
[2016-07-11] MEDS ORDERED: INSULIN (NOVOLOG) ASPART 100 UNITS/ML 10ML VIAL ONE ×3 (09:25→16:51)
--- NOTE | 2016-07-11 09:52 | PN ---
Progress Note, Physician Chief Complaint: has soreness of right thigh will be going for extra session HD today noted pt is asking for ice and water frequently pt non compliant with diet and fluid restriction her BGM is high - Current Medication List Current Medications: Active Medications Clonidine (Catapres -) 0.3 mg PO TID [facility] Last Admin: 07/11/16 06:44 Dose: 0.3 mg Gabapentin (Neurontin -) 100 mg PO TID [facility] Last Admin: 07/11/16 06:45 Dose: 100 mg Heparin Sodium (Porcine) (Heparin -) 5,000 unit SQ TID [facility] Last Admin: 07/11/16 06:44 Dose: Not Given Insulin Aspart (Novolog Vial Sliding Scale -) 1 vial SQ ACHS [facility] PRN Reason: Protocol Last Admin: 07/10/16 22:25 Dose: 4 units Insulin Detemir (Levemir Vial) 25 units SQ DAILY@0700 [facility] Last Admin: 07/11/16 06:50 Dose: 25 units Insulin Detemir (Levemir Vial) 35 units SQ ACBK [facility] Last Admin: 07/11/16 09:31 Dose: 35 units Labetalol HCl (Normodyne -) 200 mg PO TID [facility] Last Admin: 07/11/16 06:45 Dose: 200 mg Nifedipine (Procardia Xl -) 60 mg PO DAILY [facility] Sevelamer Carbonate (Renvela -) 800 mg PO TIDCM [facility] Last Admin: 07/11/16 08:30 Dose: 800 mg - Objective Vital Signs: Vital Signs Temperature 98.5 F 07/11/16 06:00 Pulse Rate 96 H 07/11/16 06:00 Respiratory Rate 16 07/11/16 06:00 Blood Pressure 194/97 07/11/16 06:00 O2 Sat by Pulse Oximetry (%) 96 07/10/16 22:00 Constitutional: Yes: No Distress Cardiovascular: Yes: Regular Rate and Rhythm Respiratory: Yes: Diminished Gastrointestinal: Yes: Normal Bowel Sounds, Soft, Hepatomegaly. No: Tenderness Extremities: Yes: Other (rt thigh- edema+) Edema: Yes Edema: LLE: 1+, RLE: 2+ Psychiatric: Yes: Alert, Oriented Labs: CBC, BMP 07/11/16 06:20 07/11/16 06:20 INR, PTT INR 1.27 (0.82-1.09) H 07/08/16 23:00 Problem List - Problems (1) DKA, type 1 Code(s): E10.10 - TYPE 1 DIABETES MELLITUS WITH KETOACIDOSIS WITHOUT COMA Qualifiers: Qualified Code(s): E10.10 - Type 1 diabetes mellitus with ketoacidosis without coma (2) HTN (hypertension) Code(s): I10 - ESSENTIAL (PRIMARY) HYPERTENSION Qualifiers: Qualified Code(s): I10 - Essential (primary) hypertension (3) Diabetes mellitus, insulin dependent (IDDM), uncontrolled Code(s): E10.65 - TYPE 1 DIABETES MELLITUS WITH HYPERGLYCEMIA (4) Fluid overload Code(s): E87.70 - FLUID OVERLOAD, UNSPECIFIED Qualifiers: Qualified Code(s): E87.70 - Fluid overload, unspecified (5) ESRD (end stage renal disease) on dialysis Code(s): N18.6 - END STAGE RENAL DISEASE Z99.2 - DEPENDENCE ON RENAL DIALYSIS Assessment/Plan PLAN DKA- resolved, Pt known to be non compliant with meds and diet. -- Endocrinology follow up -- off insulin pump, now on Levemir CHF-- right sided heart failure likely with right leg swelling and Hepatomegaly -- Dialysis per renal - extra today - fluid restriction to be in place-- 500ml HTN Urgency-- on meds. Monitor BP Cholecystitis -- GI eval noted, no pain , HIDA pending ESRD on HD-- extra HD per Renal DVT prophylaxis- pm Heparin sc
[2016-07-11] MEDS ORDERED: NIFEdipine E.R. 30 MG TABLET (FP) PO SCH (10:00)
--- NOTE | 2016-07-11 10:55 | PN ---
Progress Note (short form) - Note Progress Note: Renal follow up for ESRD on HD Pt seen and examined at the bedside no acute comoplaints leg still swollen s/p HD yesterday Vital Signs Temperature 98.5 F 07/11/16 06:00 Pulse Rate 96 H 07/11/16 06:00 Respiratory Rate 16 07/11/16 06:00 Blood Pressure 194/97 07/11/16 06:00 O2 Sat by Pulse Oximetry (%) 96 07/10/16 22:00 Intake & Output 07/08/16 07/09/16 07/10/16 07/11/16 23:59 23:59 23:59 23:59 Intake Total 1850 800 450 Balance 1850 800 450 Weight 143 lb 152 lb 2 oz 160 lb 3 oz Gen: NAD, awake and alert CVS: RRR, No M/R Lungs: CTA, no rales or wheeze Abd: Soft NT/ND Ext: 1+ Le edema Access: left arm AVF + thrill CBC, BMP 07/11/16 06:20 07/11/16 06:20 Current Medications Clonidine (Catapres -) 0.3 mg PO TID [facility] Last Admin: 07/11/16 06:44 Dose: 0.3 mg Gabapentin (Neurontin -) 100 mg PO TID [facility] Last Admin: 07/11/16 06:45 Dose: 100 mg Heparin Sodium (Porcine) (Heparin -) 5,000 unit SQ TID [facility] Last Admin: 07/11/16 06:44 Dose: Not Given Insulin Aspart (Novolog Vial Sliding Scale -) 1 vial SQ [facility] PRN Reason: Protocol Last Admin: 07/10/16 22:25 Dose: 4 units Insulin Detemir (Levemir Vial) 25 units SQ DAILY@0700 [facility] Last Admin: 07/11/16 06:50 Dose: 25 units Insulin Detemir (Levemir Vial) 35 units SQ ACBK [facility] Last Admin: 07/11/16 09:31 Dose: 35 units Labetalol HCl (Normodyne -) 200 mg PO TID [facility] Last Admin: 07/11/16 06:45 Dose: 200 mg Nifedipine (Procardia Xl -) 60 mg PO DAILY [facility] Last Admin: 07/11/16 09:57 Dose: 60 mg Sevelamer Carbonate (Renvela -) 800 mg PO TIDCM [facility] Last Admin: 07/11/16 08:30 Dose: 800 mg A/P 25 year old Woman with PMhx of ESRD on HD, Hypertension, DM, Osteomylitis presented with DKA #DKA/Hyperglycemia Insulin as per Endocrine Diabetic Diet Diabetic counseling #ESRD on HD for additional HD toady wtih 2.5L UF as tolerated #Hypertension Continue Nifedipine, Labetalol #Anemia Hgb improved s/p transfusion Continue high dose epogen with Hd Nathan Vo DO
[2016-07-11] MEDS: INSULIN SLIDING SCALE (NOVOLOG) 1 VIAL SQ SCH ×4 (13:12→23:06)
--- NOTE | 2016-07-12 01:31 | PN ---
Progress Note, Physician Chief Complaint: epistaxis noted labile sugars History of Present Illness: iddm esrd,poorly compliant diabetic difficulty controll given eating habits - Current Medication List Current Medications: Active Medications Clonidine (Catapres -) 0.3 mg PO TID [facility] Last Admin: 07/11/16 21:57 Dose: 0.3 mg Gabapentin (Neurontin -) 100 mg PO TID [facility] Last Admin: 07/11/16 21:58 Dose: 100 mg Heparin Sodium (Porcine) (Heparin -) 5,000 unit SQ TID [facility] Last Admin: 07/11/16 22:09 Dose: Not Given Insulin Aspart (Novolog Vial Sliding Scale -) 1 vial SQ ACHS [facility] PRN Reason: Protocol Last Admin: 07/11/16 23:06 Dose: 3 units Insulin Detemir (Levemir Vial) 30 units SQ DAILY@0700 [facility] Labetalol HCl (Normodyne -) 200 mg PO TID [facility] Last Admin: 07/11/16 21:58 Dose: 200 mg Nifedipine (Procardia Xl -) 60 mg PO DAILY [facility] Last Admin: 07/11/16 09:57 Dose: 60 mg Sevelamer Carbonate (Renvela -) 800 mg PO TIDCM [facility] Last Admin: 07/11/16 18:01 Dose: 800 mg - Objective Vital Signs: Vital Signs Temperature 98.1 F 07/11/16 15:03 Pulse Rate 96 H 07/11/16 15:03 Respiratory Rate 20 07/11/16 15:03 Blood Pressure 154/99 07/11/16 15:03 O2 Sat by Pulse Oximetry (%) 96 07/10/16 22:00 Constitutional: Yes: Well Nourished Eyes: Yes: WNL HENT: Yes: Epistaxis, Nasal Congestion, Pharyngeal Erythema Neck: Yes: WNL Respiratory: Yes: WNL, Regular, CTA Bilaterally Labs: CBC, BMP 07/11/16 06:20 07/11/16 06:20 INR, PTT INR 1.27 (0.82-1.09) H 07/08/16 23:00 Problem List - Problems (1) DKA, type 1 Code(s): E10.10 - TYPE 1 DIABETES MELLITUS WITH KETOACIDOSIS WITHOUT COMA Qualifiers: Diabetes mellitus complication detail: without coma Qualified Code(s): E10.10 - Type 1 diabetes mellitus with ketoacidosis without coma (2) Acute respiratory failure Code(s): J96.00 - ACUTE RESPIRATORY FAILURE, UNSP W HYPOXIA OR HYPERCAPNIA (3) Diabetes mellitus, insulin dependent (IDDM), uncontrolled Code(s): E10.65 - TYPE 1 DIABETES MELLITUS WITH HYPERGLYCEMIA Assessment/Plan iddm esrd htn anemia Current Active Problems Chest pain (Acute) DKA, type 1 (Acute) Leukocytosis (Acute) HTN (hypertension) (Chronic) Abnormal Lab Results 07/11/16 07/11/16 06:20 06:20 Hgb 9.1 L D Hct 30.0 L D MCV 79.0 L MCHC 30.5 L RDW 18.2 H Plt Count 478 H Chloride 93 L Anion Gap 17 H BUN 33 H D Creatinine 4.6 H Random Glucose 487 H* D Phosphorus 5.0 H plan: off insulin pump daily levemer 25 units am bgm qid novolog coverage
[2016-07-12] MEDS: cloNIDine HCL 0.1 MG TABLET PO SCH ×3 (06:08→22:13)
[2016-07-12] MEDS: HEPARIN NA (PORCINE) 5,000 UNITS/ML 1ML VIAL SQ SCH ×3 (06:08→22:15)
[2016-07-12] MEDS: GABAPENTIN 100 MG CAPSULE (FP) PO SCH ×3 (06:08→22:14)
[2016-07-12] MEDS: LABETALOL HCL 200 MG TABLET (FP) PO SCH ×3 (06:08→22:14)
[2016-07-12] MEDS: INSULIN DETEMIR 100 UNITS/ML MDV SQ SCH (06:49)
[2016-07-12] MEDS: INSULIN SLIDING SCALE (NOVOLOG) 1 VIAL SQ SCH ×5 (06:50→23:08)
[2016-07-12] MEDS ORDERED: INSULIN DETEMIR 100 UNITS/ML MDV SQ SCH (07:00)
--- NOTE | 2016-07-12 08:19 | PN ---
Progress Note, Physician Chief Complaint: non compliant with diet and water - Current Medication List Current Medications: Active Medications Clonidine (Catapres -) 0.3 mg PO TID [facility] Last Admin: 07/12/16 06:08 Dose: 0.3 mg Gabapentin (Neurontin -) 100 mg PO TID [facility] Last Admin: 07/12/16 06:08 Dose: 100 mg Heparin Sodium (Porcine) (Heparin -) 5,000 unit SQ TID [facility] Last Admin: 07/12/16 06:08 Dose: Not Given Insulin Aspart (Novolog Vial Sliding Scale -) 1 vial SQ [facility] PRN Reason: Protocol Last Admin: 07/12/16 06:50 Dose: 3 units Insulin Detemir (Levemir Vial) 25 units SQ DAILY@0700 [facility] Last Admin: 07/12/16 06:49 Dose: 25 units Labetalol HCl (Normodyne -) 200 mg PO TID [facility] Last Admin: 07/12/16 06:08 Dose: 200 mg Nifedipine (Procardia Xl -) 60 mg PO DAILY [facility] Last Admin: 07/11/16 09:57 Dose: 60 mg Sevelamer Carbonate (Renvela -) 800 mg PO TIDCM [facility] Last Admin: 07/11/16 18:01 Dose: 800 mg - Objective Vital Signs: Vital Signs Temperature 97.7 F 07/12/16 07:58 Pulse Rate 93 H 07/12/16 07:58 Respiratory Rate 20 07/12/16 07:58 Blood Pressure 196/118 07/12/16 07:58 O2 Sat by Pulse Oximetry (%) 96 07/11/16 21:00 Constitutional: Yes: No Distress Cardiovascular: Yes: Regular Rate and Rhythm Respiratory: Yes: CTA Bilaterally Gastrointestinal: Yes: Normal Bowel Sounds, Soft. No: Tenderness Edema: No Labs: CBC, BMP 07/11/16 06:20 INR, PTT INR 1.27 (0.82-1.09) H 07/08/16 23:00 Problem List - Problems (1) DKA, type 1 Code(s): E10.10 - TYPE 1 DIABETES MELLITUS WITH KETOACIDOSIS WITHOUT COMA Qualifiers: Diabetes mellitus complication detail: without coma Qualified Code(s): E10.10 - Type 1 diabetes mellitus with ketoacidosis without coma (2) HTN (hypertension) Code(s): I10 - ESSENTIAL (PRIMARY) HYPERTENSION Qualifiers: Hypertension type: essential hypertension Qualified Code(s): I10 - Essential (primary) hypertension (3) Diabetes mellitus, insulin dependent (IDDM), uncontrolled Code(s): E10.65 - TYPE 1 DIABETES MELLITUS WITH HYPERGLYCEMIA (4) Fluid overload Code(s): E87.70 - FLUID OVERLOAD, UNSPECIFIED Qualifiers: Hypervolemia type: unspecified Qualified Code(s): E87.70 - Fluid overload, unspecified (5) ESRD (end stage renal disease) on dialysis Code(s): N18.6 - END STAGE RENAL DISEASE Z99.2 - DEPENDENCE ON RENAL DIALYSIS Assessment/Plan PLAN DKA- resolved, Pt known to be non compliant with meds and diet. -- Endocrinology follow up -- off insulin pump, now on Levemir CHF-- right sided heart failure likely with right leg swelling and Hepatomegaly -- Dialysis per renal - extra today - fluid restriction to be in place-- 500ml HTN Urgency-- on meds. Monitor BP , increase dose of Procardia and add Losartan - monitor Potassium, spoke with Renal Cholecystitis -- GI eval noted, no pain , HIDA cancelled, Alk PO4 decreasing, she does not have symptoms of cholecystits ESRD on HD-- extra HD per Renal DVT prophylaxis- pm Heparin sc
[2016-07-12] MEDS: SEVELAMER CARBONATE 800 MG TAB (FP) PO SCH ×3 (08:30→17:19)
[2016-07-12 09:10] LABS: ALBUMIN 2.7 g/dl (3.4-5.0); BILIRUBIN,TOTAL 0.5 mg/dL (0.2-1.0); CALCIUM 8.7 mg/dL (8.5-10.1); COCKROFT - GAULT 21.675; CREATININE 4.5 mg/dL (0.55-1.02); TOT PROT 7.7 g/dl (6.4-8.2)
[2016-07-12] MEDS ORDERED: LOSARTAN POTASSIUM 50 MG TABLET (FP) PO SCH (10:00)
[2016-07-12] MEDS: LOSARTAN POTASSIUM 25 MG TABLET PO SCH (10:01)
[2016-07-12] MEDS: NIFEdipine E.R. 30 MG TABLET (FP) PO SCH (10:01)
[2016-07-12] MEDS ORDERED: PT OWN MED DRAWER 7, Y5N ONE (11:37)
[2016-07-12] MEDS ORDERED: INSULIN (NOVOLOG) ASPART 100 UNITS/ML 10ML VIAL ONE (11:37)
--- NOTE | 2016-07-12 11:37 | PN ---
Progress Note (short form) - Note Progress Note: Renal follow up for ESRD on HD Pt seen and examined at the bedside s/p HD yesterday with 2.5Kg UF no acute complaints BP high this am Vital Signs Temperature 98.6 F 07/12/16 08:30 Pulse Rate 95 H 07/12/16 08:30 Respiratory Rate 20 07/12/16 08:30 Blood Pressure 211/123 07/12/16 08:30 O2 Sat by Pulse Oximetry (%) 96 07/11/16 21:00 Intake & Output 07/09/16 07/10/16 07/11/16 07/12/16 23:59 23:59 23:59 23:59 Intake Total 1850 800 950 60 Balance 1850 800 950 60 Weight 152 lb 2 oz 160 lb 3 oz Gen: NAD, awake and alert CVS: RRR, No M/R Lungs: CTA, no rales or wheeze Abd: Soft NT/ND Ext: 1+ Le edema Access: left arm AVF + thrill CBC, BMP 07/11/16 06:20 07/12/16 06:30 Current Medications Clonidine (Catapres -) 0.3 mg PO TID [facility] Last Admin: 07/12/16 06:08 Dose: 0.3 mg Gabapentin (Neurontin -) 100 mg PO TID [facility] Last Admin: 07/12/16 06:08 Dose: 100 mg Heparin Sodium (Porcine) (Heparin -) 5,000 unit SQ TID [facility] Last Admin: 07/12/16 06:08 Dose: Not Given Insulin Aspart (Novolog Vial Sliding Scale -) 1 vial SQ [facility] PRN Reason: Protocol Last Admin: 07/12/16 06:50 Dose: 3 units Insulin Detemir (Levemir Vial) 25 units SQ DAILY@0700 [facility] Last Admin: 07/12/16 06:49 Dose: 25 units Labetalol HCl (Normodyne -) 200 mg PO TID [facility] Last Admin: 07/12/16 06:08 Dose: 200 mg Losartan Potassium (Cozaar -) 25 mg PO DAILY [facility] Last Admin: 07/12/16 10:01 Dose: 25 mg Nifedipine (Procardia Xl -) 90 mg PO DAILY [facility] Last Admin: 07/12/16 10:01 Dose: 90 mg Sevelamer Carbonate (Renvela -) 800 mg PO TIDCM [facility] Last Admin: 07/12/16 08:30 Dose: 800 mg A/P 25 year old Woman with PMhx of ESRD on HD, Hypertension, DM, Osteomylitis presented with DKA #DKA/Hyperglycemia SC insulin as per Endocrine #ESRD on HD s/p HD yesterday no acute indication for dialysis today continue HD tomorrow with aggressive UF #Hypertension Nifedpine increased to 90mg Started Losartan 5mg Goal BP is < 140/90 #Anemia Hgb improved s/p transfusion Continue high dose epogen with Hd Nathan Vo DO
[2016-07-12] MEDS: oxyCODONE HCL 5 MG TABLET PO PRN (17:19)
[2016-07-13] MEDS: oxyCODONE HCL 5 MG TABLET PO PRN ×3 (00:22→21:39)
[2016-07-13] MEDS: LABETALOL HCL 200 MG TABLET (FP) PO SCH ×3 (06:03→21:39)
[2016-07-13] MEDS: GABAPENTIN 100 MG CAPSULE (FP) PO SCH ×3 (06:03→21:39)
[2016-07-13] MEDS: cloNIDine HCL 0.1 MG TABLET PO SCH ×3 (06:03→21:38)
[2016-07-13] MEDS: HEPARIN NA (PORCINE) 5,000 UNITS/ML 1ML VIAL SQ SCH ×3 (06:04→21:38)
[2016-07-13] MEDS: INSULIN DETEMIR 100 UNITS/ML MDV SQ SCH (06:19)
[2016-07-13] MEDS: INSULIN SLIDING SCALE (NOVOLOG) 1 VIAL SQ SCH ×4 (06:19→21:39)
[2016-07-13] MEDS: SEVELAMER CARBONATE 800 MG TAB (FP) PO SCH ×3 (07:54→17:40)
[2016-07-13] MEDS ORDERED: EPOETIN ALFA 20,000 UNIT/1 ML VIAL IVPUSH ONE (08:00)
[2016-07-13] MEDS: LOSARTAN POTASSIUM 25 MG TABLET PO SCH ×2 (08:37→11:47)
[2016-07-13 08:41] LABS: MCH 24.1 pg (25.7-33.7); MCHC 30.5 g/dl (32.0-36.0); MEAN CELL VOLUME 79.1 fl (80-96); MEAN PLT VOLUME 8.7 fl (7.5-11.1); PLATELET COUNT 443 K/MM3 (134-434); RDW 18.4 % (11.6-15.6); WHITE BLOOD COUNT 13.9 K/mm3 (4.0-10.0)
[2016-07-13 08:58] LABS: ALBUMIN 2.6 g/dl (3.4-5.0); CALCIUM 8.5 mg/dL (8.5-10.1)
[2016-07-13 09:01] LABS: BILIRUBIN,TOTAL 0.5 mg/dL (0.2-1.0); COCKROFT - GAULT 14.1695; CREATININE 6.5 mg/dL (0.55-1.02); PHOSPHOROUS 6.9 mg/dL (2.5-4.9); TOT PROT 7.2 g/dl (6.4-8.2)
--- NOTE | 2016-07-13 09:08 | PN ---
Progress Note (short form) - Note Progress Note: Subjective Patient seen and examined in HD. Chart reviewed. Comfortable. Blood sugar much better. Blood pressure uncontrolled. Patient denies chest pain or SOB Objective Last Vital Signs Temp Pulse Resp BP Pulse Ox 98.2 F 91 H 18 182/108 95 07/13/16 06:55 07/13/16 09:30 07/13/16 09:30 07/13/16 09:30 07/12/16 21:00 CBC, BMP 07/13/16 07:00 07/13/16 07:00 Laboratory Results - last 24 hr 07/11/16 07/11/16 07/12/16 06:21 11:19 11:52 WBC RBC Hgb Hct MCV MCHC RDW Plt Count MPV Sodium Potassium Chloride Carbon Dioxide Anion Gap BUN Creatinine Creat Clearance w eGFR POC Glucometer 467 415 74 Random Glucose Calcium Phosphorus Total Bilirubin AST ALT Alkaline Phosphatase Total Protein Albumin 07/12/16 07/12/16 07/13/16 16:25 23:06 05:50 WBC RBC Hgb Hct MCV MCHC RDW Plt Count MPV Sodium Potassium Chloride Carbon Dioxide Anion Gap BUN Creatinine Creat Clearance w eGFR POC Glucometer 117 298 228 Random Glucose Calcium Phosphorus Total Bilirubin AST ALT Alkaline Phosphatase Total Protein Albumin 07/13/16 07/13/16 07:00 07:00 WBC 13.9 H D RBC 3.42 L Hgb 8.3 L Hct 27.1 L MCV 79.1 L MCHC 30.5 L RDW 18.4 H Plt Count 443 H MPV 8.7 Sodium 137 Potassium 4.4 Chloride 94 L Carbon Dioxide 29 Anion Gap 14 BUN 52 H D Creatinine 6.5 H D Creat Clearance w eGFR 7.73 POC Glucometer Random Glucose 184 H D Calcium 8.5 Phosphorus 6.9 H D Total Bilirubin 0.5 AST 14 L D ALT 14 D Alkaline Phosphatase 912 H Total Protein 7.2 Albumin 2.6 L Physical Exam Constitutional: Yes: No Distress Cardiovascular: Yes: Regular Rate and Rhythm Respiratory: Yes: Diminished Gastrointestinal: Yes: Normal Bowel Sounds, Soft, Hepatomegaly. No: Tenderness Extremities: Yes: Other (rt thigh- edema+) Edema: Yes Edema: LLE: 1+, RLE: 2+ Psychiatric: Yes: Alert, Oriented Assessment and Plan PLAN DKA- resolved, Pt known to be non compliant with meds and diet. -- Endocrinology follow up -- off insulin pump, now on Levemir CHF-- right sided heart failure likely with right leg swelling and Hepatomegaly -- Dialysis per renal - extra today - fluid restriction to be in place-- 500ml HTN Urgency-- on meds. Monitor BP --Add Hydralazine --Monitor ESRD on HD-- extra HD per Renal DVT prophylaxis- pm Heparin sc Overall stable and better. If BP better tomorrow-- consider d/c home Compliant stressed with the patient Documentation prepared by Nicole Strong, acting as a medical assistant ob gyn for Valentine Acuña MD.
--- NOTE | 2016-07-13 10:06 | PN ---
Progress Note (short form) - Note Progress Note: Renal follow up for ESRD on HD Pt seen and examined during dialysis BP high 180/110, was given losartan w/o much improvement UF goal is 3.5-4L Access with good function pt has some GUTIERRES no chest pain or sob LE swelling is improved Vital Signs Temperature 98.2 F 07/13/16 06:55 Pulse Rate 91 H 07/13/16 09:30 Respiratory Rate 18 07/13/16 09:30 Blood Pressure 182/108 07/13/16 09:30 O2 Sat by Pulse Oximetry (%) 95 07/12/16 21:00 Intake & Output 07/10/16 07/11/16 07/12/16 07/13/16 23:59 23:59 23:59 23:59 Intake Total 800 950 700 Output Total 0 Balance 800 950 700 Weight 160 lb 3 oz 150 lb 14.4 oz Gen: NAD, awake and alert CVS: RRR, No M/R Lungs: CTA, no rales or wheeze Abd: Soft NT/ND Ext: 1+ Le edema Access: left arm AVF + thrill CBC, BMP 07/13/16 07:00 07/13/16 07:00 Current Medications Clonidine (Catapres -) 0.3 mg PO TID [facility] Last Admin: 07/13/16 06:03 Dose: 0.3 mg Gabapentin (Neurontin -) 100 mg PO TID [facility] Last Admin: 07/13/16 06:03 Dose: 100 mg Heparin Sodium (Porcine) (Heparin -) 5,000 unit SQ TID [facility] Last Admin: 07/13/16 06:04 Dose: Not Given Insulin Aspart (Novolog Vial Sliding Scale -) 1 vial SQ [facility] PRN Reason: Protocol Last Admin: 07/13/16 06:19 Dose: 5 units Insulin Detemir (Levemir Vial) 25 units SQ DAILY@0700 [facility] Last Admin: 07/13/16 06:19 Dose: 25 units Labetalol HCl (Normodyne -) 200 mg PO TID [facility] Last Admin: 07/13/16 06:03 Dose: 200 mg Losartan Potassium (Cozaar -) 25 mg PO DAILY [facility] Last Admin: 07/13/16 08:37 Dose: 25 mg Nifedipine (Procardia Xl -) 90 mg PO DAILY [facility] Last Admin: 07/12/16 10:01 Dose: 90 mg Oxycodone HCl (Roxicodone -) 5 mg PO Q8H PRN PRN Reason: PAIN Last Admin: 07/13/16 00:22 Dose: 5 mg Sevelamer Carbonate (Renvela -) 1,600 mg PO TIDCM ROSA MARIA A/P 25 year old Woman with PMhx of ESRD on HD, Hypertension, DM, Osteomylitis presented with DKA #ESRD on HD with fluid overload tolerating dialysis with 4kg UF Fluid restriction of 1L daily will continue aggressive UF (may need isolated UF tomorrow) Dry weight is 134 lbs, todays AM weight is 150 lbs #Hypertension Continue Losartan 50mg, Nifedpine 90mg, Labetalol 200mg TID, Clonidine 0.3mg TID #Anemia could not give Epogen because high BP will attempt to redose next treatment Nathan Vo DO
[2016-07-13] MEDS: NIFEdipine E.R. 30 MG TABLET (FP) PO SCH ×3 (12:02→13:20)
[2016-07-13] MEDS: hydrALAZINE HCL 25 MG TABLET (FP) PO SCH ×2 (13:20→21:38)
[2016-07-13] MEDS ORDERED: INSULIN (NOVOLOG) ASPART 100 UNITS/ML 10ML VIAL ONE (20:53)
--- NOTE | 2016-07-13 21:32 | PN ---
Progress Note (short form) - Note Progress Note: in controlled setting seems to get better diabetic control likely diet and insulin dosing Current Active Problems Chest pain (Acute) DKA, type 1 (Acute) Leukocytosis (Acute) HTN (hypertension) (Chronic) Abnormal Lab Results 07/10/16 07/13/16 07/13/16 18:30 07:00 07:00 WBC 13.9 H D RBC 3.42 L Hgb 8.3 L Hct 27.1 L MCV 79.1 L MCHC 30.5 L RDW 18.4 H Plt Count 443 H Chloride 94 L BUN 52 H D Creatinine 6.5 H D Random Glucose 184 H D Phosphorus 6.9 H D AST 14 L D Alkaline Phosphatase 912 H Albumin 2.6 L Crossmatch See Detail plan: bgm novolog insulin dosing levemir dose titrating Current Medications Generic Name Dose Route Start Last Admin Trade Name Freq PRN Reason Stop Dose Admin Clonidine 0.3 mg 07/10/16 14:00 07/13/16 13:20 Catapres - PO 0.3 mg TID ROSA MARIA Administration Gabapentin 100 mg 07/10/16 14:00 07/13/16 13:20 Neurontin - PO 100 mg TID ROSA MARIA Administration Heparin Sodium (Porcine) 5,000 unit 07/10/16 14:00 07/13/16 13:20 Heparin - SQ Not Given TID ROSA MARIA Hydralazine HCl 25 mg 07/13/16 14:00 07/13/16 13:20 Apresoline - PO 25 mg TID ROSA MARIA Administration Insulin Aspart 1 vial 07/11/16 17:10 07/13/16 17:40 Novolog Vial Sliding Scale - SQ 7 units ACHS ROSA MARIA Administration Protocol Insulin Detemir 25 units 07/12/16 07:00 07/13/16 06:19 Levemir Vial SQ 25 units DAILY@0700 ROSA MARIA Administration Labetalol HCl 200 mg 07/10/16 14:00 07/13/16 13:21 Normodyne - PO 200 mg TID ROSA MARIA Administration Losartan Potassium 25 mg 07/12/16 10:00 07/13/16 11:47 Cozaar - PO Not Given DAILY ROSA MARIA Nifedipine 90 mg 07/12/16 10:00 07/13/16 13:20 Procardia Xl - PO 90 mg DAILY ROSA MARIA Administration Oxycodone HCl 5 mg 07/12/16 17:01 07/13/16 12:02 Roxicodone - PO 5 mg Q8H PRN Administration PAIN Sevelamer Carbonate 1,600 mg 07/13/16 10:02 07/13/16 17:40 Renvela - PO 1,600 mg TIDCM ROSA MARIA Administration Problem List - Problems (1) DKA, type 1 Code(s): E10.10 - TYPE 1 DIABETES MELLITUS WITH KETOACIDOSIS WITHOUT COMA Qualifiers: Diabetes mellitus complication detail: without coma Qualified Code(s): E10.10 - Type 1 diabetes mellitus with ketoacidosis without coma (2) Acute respiratory failure Code(s): J96.00 - ACUTE RESPIRATORY FAILURE, UNSP W HYPOXIA OR HYPERCAPNIA (3) Diabetes mellitus, insulin dependent (IDDM), uncontrolled Code(s): E10.65 - TYPE 1 DIABETES MELLITUS WITH HYPERGLYCEMIA
[2016-07-14] MEDS: hydrALAZINE HCL 25 MG TABLET (FP) PO SCH ×2 (06:07→14:35)
[2016-07-14] MEDS: HEPARIN NA (PORCINE) 5,000 UNITS/ML 1ML VIAL SQ SCH ×3 (06:07→14:34)
[2016-07-14] MEDS: LABETALOL HCL 200 MG TABLET (FP) PO SCH ×2 (06:07→14:32)
[2016-07-14] MEDS: GABAPENTIN 100 MG CAPSULE (FP) PO SCH ×2 (06:07→14:32)
[2016-07-14] MEDS: INSULIN DETEMIR 100 UNITS/ML MDV SQ SCH (06:07)
[2016-07-14] MEDS: cloNIDine HCL 0.1 MG TABLET PO SCH ×2 (06:07→14:31)
[2016-07-14] MEDS: oxyCODONE HCL 5 MG TABLET PO PRN (06:08)
[2016-07-14] MEDS: INSULIN SLIDING SCALE (NOVOLOG) 1 VIAL SQ SCH ×2 (06:08→12:05)
[2016-07-14 06:14] VITALS: PULSE 98
[2016-07-14] MEDS: SEVELAMER CARBONATE 800 MG TAB (FP) PO SCH ×2 (08:36→12:19)
[2016-07-14] MEDS: LOSARTAN POTASSIUM 25 MG TABLET PO SCH (09:10)
[2016-07-14] MEDS: NIFEdipine E.R. 30 MG TABLET (FP) PO SCH (09:10)
[2016-07-14 10:07] VITALS: BP 159/110; TEMP 98.2
--- NOTE | 2016-07-14 10:48 | DS ---
Physical Examination Vital Signs: Vital Signs Temperature 98.2 F 07/14/16 09:20 Pulse Rate 98 H 07/14/16 09:20 Respiratory Rate 20 07/14/16 09:20 Blood Pressure 159/110 07/14/16 09:20 O2 Sat by Pulse Oximetry (%) 93 L 07/14/16 09:00 Constitutional: Yes: No Distress Cardiovascular: Yes: Regular Rate and Rhythm Respiratory: Yes: Diminished Gastrointestinal: Yes: Normal Bowel Sounds, Soft, Hepatomegaly. No: Tenderness Edema: No Labs: CBC, BMP 07/13/16 07:00 07/13/16 07:00 Discharge Summary Reason For Visit: TYPE1 MELLITUS W/HYPERGLYCEMIA/CHEST PAIN HYPERTEN Current Active Problems Chest pain (Acute) DKA, type 1 (Acute) Leukocytosis (Acute) HTN (hypertension) (Chronic) Hospital Course: Admitted for DKA and CHF- Rt sided heart failure She is non complaints with meds Her BP was found to be elevated Was initially admitted in ICU on Insulin drip - seen by Endocrinology and Renal She had hepatomegaly and acalculous cholecystitis -- seen by GI-- hepatomegaly due to Rt sided heart failure and alk PO4 decreased-- pt eating ok, without any problems, no further work up for cholecystitis Compliance strongly stressed stable for dc home Condition: Fair - Instructions Referrals: Edna Calero MD [Primary Care Provider] - Corey Cassidy MD [Staff Physician] - Nathan Vo MD [Staff Physician] - Disposition: HOME - Home Medications Comprehensive Discharge Medication List: Ambulatory Orders Sevelamer Carbonate [Renvela -] 800 mg PO TID 09/22/15 Oxycodone HCl/Acetaminophen [Percocet 5-325 mg Tablet] 1 tab PO Q6H PRN #10 tablet MDD 4 11/11/15 Gabapentin 100 mg PO TID 03/11/16 Clonidine HCl [Catapres -] 0.6 mg PO TID #120 tablet 05/07/16 Insulin (Levemir) [Levemir Vial] 8 units SQ HS #10 ml 05/07/16 Insulin (Levemir) [Levemir Vial] 15 units SQ BID@0700,2200 #10 ml 05/07/16 Insulin Lispro [Humalog Kwikpen U-200] 200 unit SQ PRN PRN #15 insuln.pen Labetalol HCl [Normodyne -] 400 mg PO BID #60 tablet 05/07/16 Miscellaneous Medical Supply [Glucometer Device] 1 each SQ [facility] #1 kit [employer] [Glucometer Test Strips #100] 1 each SQ [facility] #10 box 05/07/16 Miscellaneous Medical Supply [Lancets] 1 each SQ [facility] #1 box 05/07/16 Mupirocin Cream [Bactroban 2% Cream -] 1 applic TP BID #1 tube 05/07/16 Nifedipine ER [Procardia XL -] 30 mg PO DAILY #30 tab.er.24 05/07/16 Metoprolol Succinate [Toprol Xl -] 100 mg PO DAILY 07/09/16
[2016-07-14] MEDS ORDERED: BISACODYL 5 MG TABLET.DR (FP) PO ONE (13:30)
--- NOTE | 2016-07-14 14:59 | PN ---
Progress Note (short form) - Note Progress Note: Renal follow up for ESRD on HD Pt seen and examined at the bedside no acute complaints no sob or chest pain s/p HD yesterday Vital Signs Temperature 98.2 F 07/14/16 09:20 Pulse Rate 98 H 07/14/16 09:20 Respiratory Rate 20 07/14/16 09:20 Blood Pressure 159/110 07/14/16 09:20 O2 Sat by Pulse Oximetry (%) 93 L 07/14/16 09:00 Intake & Output 07/11/16 07/12/16 07/13/16 07/14/16 23:59 23:59 23:59 23:59 Intake Total 950 700 680 300 Output Total 0 Balance 950 700 680 300 Weight 160 lb 3 oz 139 lb 8.842 oz 145 lb 3 oz Gen: NAD, awake and alert CVS: RRR, No M/R Lungs: CTA, no rales or wheeze Abd: Soft NT/ND Ext: 1+ Le edema Access: left arm AVF + thrill CBC, BMP 07/13/16 07:00 07/13/16 07:00 Current Medications Clonidine (Catapres -) 0.3 mg PO TID [facility] Last Admin: 07/14/16 14:31 Dose: 0.3 mg Gabapentin (Neurontin -) 100 mg PO TID [facility] Last Admin: 07/14/16 14:32 Dose: 100 mg Heparin Sodium (Porcine) (Heparin -) 5,000 unit SQ TID [facility] Last Admin: 07/14/16 14:34 Dose: Not Given Hydralazine HCl (Apresoline -) 25 mg PO TID [facility] Last Admin: 07/14/16 14:35 Dose: 25 mg Insulin Aspart (Novolog Vial Sliding Scale -) 1 vial SQ [facility] PRN Reason: Protocol Last Admin: 07/14/16 12:05 Dose: 4 units Insulin Detemir (Levemir Vial) 25 units SQ DAILY@0700 [facility] Last Admin: 07/14/16 06:07 Dose: 25 units Labetalol HCl (Normodyne -) 200 mg PO TID [facility] Last Admin: 07/14/16 14:32 Dose: 200 mg Losartan Potassium (Cozaar -) 25 mg PO DAILY [facility] Last Admin: 07/14/16 09:10 Dose: 25 mg Nifedipine (Procardia Xl -) 90 mg PO DAILY [facility] Last Admin: 07/14/16 09:10 Dose: 90 mg Oxycodone HCl (Roxicodone -) 5 mg PO Q8H PRN PRN Reason: PAIN Last Admin: 07/14/16 06:08 Dose: 5 mg Sevelamer Carbonate (Renvela -) 1,600 mg PO TIDCM [facility] Last Admin: 07/14/16 12:19 Dose: 1,600 mg A/P 25 year old Woman with PMhx of ESRD on HD, Hypertension, DM, Osteomylitis presented with DKA #ESRD on HD with fluid overload pt now near her dry weight no indication for HD or UF today fluid restriction of 1.2L daily HD tomorrow as outpatient #Hypertension Continue Losartan 50mg, Nifedpine 90mg, Labetalol 200mg TID, Clonidine 0.3mg TID Nathan Vo DO
[2016-07-15 00:07] LABS: ALKALINE PHOSPHATASE 1052 IU/L (39-117); INTESTINAL FRAC.: 0 % (0-18)
== END 2016-07-14 15:21 | disposition home or self-care (01) | DRG 637 ==
LOC: JER 21:56 → JERBED 07-09 01:04 → UNDOADMIN 07-09 02:41 → JERBED 07-09 02:41 → JICU 07-09 03:06 → J8W 07-10 11:07
PROVIDERS: ADMIT Internal Medicine; ATTEND Internal Medicine
PROC: 30233N1 Transfusion of Nonautologous Red Blood Cells into Peripheral Vein, Percutaneous Approach (ICD-10-PCS; principal; 2016-07-10)
DX: E10.10 Type 1 diabetes mellitus with ketoacidosis without coma (principal); N18.6 End stage renal disease; J96.00 Acute respiratory failure, unspecified whether with hypoxia or hypercapnia; G40.802 Other epilepsy, not intractable, without status epilepticus; I13.2 Hypertensive heart and chronic kidney disease with heart failure and with stage 5 chronic kidney disease, or end stage renal disease; M86.8X7 Other osteomyelitis, ankle and foot; I16.0 Hypertensive urgency; E10.69 Type 1 diabetes mellitus with other specified complication; I50.9 Heart failure, unspecified; M60.88 Other myositis, other site; E87.70 Fluid overload, unspecified; D64.9 Anemia, unspecified; Z86.718 Personal history of other venous thrombosis and embolism; Z86.711 Personal history of pulmonary embolism; Z91.14 Patient's other noncompliance with medication regimen; Z91.15 Patient's noncompliance with renal dialysis
CPT/HCPCS: 36415; 36430; 71010-TC; 76705-TC; 80048; 80053; 82009; 82550; 82553; 83036; 83605; 83735; 83880; 84080; 84100; 84484; 84703; 85025; 85027; 85610; 85730; 86704; 86706; 86708; 86850; 86900; 86901; 86922; 87040; 87340; 93005; 93010; 93925-TC; 93970-TC; 99283-25; J0885; J1644; P9038; P9058

== ENCOUNTER 2016-08-05 11:25 | Inpatient (IN) | payer OTHER ==
--- NOTE | 2016-08-05 12:00 | PDOC ---
History of Present Illness - General History Source: Patient, Old Records Exam Limitations: No Limitations - History of Present Illness Initial Comments: 0-08/05/16 12:18 The patient is a 25-year-old woman with a significant past medical history of anemia, hypertension, deep venous thrombosis, pulmonary embolism (on Coumadin), insulin-dependent diabetes mellitus, end-stage renal disease (on hemodialysis q. M/W/F; received full dialysis on Wednesday without complications), myosistis, osteomylities (right fifth digit surgery) and seizure disorder who was sent from her dialysis center to the emergency department via EMS for further evaluation of generalized weakness. Patient was unable to receive dialysis treatment this mronign, as she was complaining of generalized weakness and nausea. She reports she was in her usual state of health yesterday and felt fine when she woke up this morning. She currently reports diffuse generalized abdominal pain with associated nausea and weakness. No vomiting. She also notes that her insulin dosage has changed recently and despite compliance with her insulin, her sugars have been runnyn high at home. No recent fevers, chills. No chest pain, cough, shortness of breath, headache, dizziness, palpitations, syncope. No urinary complaints. Allergies: No Known Drug Allergies Past Surgical History: Myxoma removed 2013. Right foot ulcer surgery. Left upper extremity fistula. Social History: Unknown if ever smoked. No ETOH and recreational drug use. Primary Care Physician: Dr. Edna Alvarado [phone] Manager Of Tires Sales: Dr. Nathan Vo [phone] Endocrinilogist: Dr. Corey Rose [phone] <Mel Barber - Last Filed: 08/05/16 12:58> <Gen Duncan - Last Filed: 08/05/16 13:38> - General Chief Complaint: Lightheaded Stated Complaint: WEAKNESS,DIZZINESS Time Seen by Provider: 08/05/16 11:55 Past History <Mel Barber - Last Filed: 08/05/16 12:58> - Past Medical History Anemia: Yes Diabetes: Yes (15 yrs Insulin dependent) Dialysis: Yes (M/W/F) Disorders: Yes (ESRD for 6 yrs) HTN: Yes Kidney Stones: (ESRD, Dialysis Mon, W, F, Left arm Fistula) Suicide Attempt (Hx): No Seizures: Yes (Several yrs ago, no medication) - Surgical History Cardiac Surgery: Yes (myxoma removed 2013) - Immunization History Immunization Up to Date: Yes - Psycho/Social/Smoking Cessation Hx Anxiety: No Suicidal Ideation: No Smoking Status: No Smoking History: Unknown if ever smoked Have you smoked in the past 12 months: No Number of Cigarettes Smoked Daily: 10 Information on smoking cessation initiated: No Hx Alcohol Use: No Drug/Substance Use Hx: No Substance Use Type: None Hx Substance Use Treatment: No <Gen Duncan - Last Filed: 08/05/16 13:38> - Past Medical History Allergies/Adverse Reactions: Allergies Allergy/AdvReac Type Severity Reaction Status Date / Time No Known Drug Allergies Allergy Verified 08/05/16 12:42 Home Medications: Ambulatory Orders Oxycodone HCl/Acetaminophen [Percocet 5-325 mg Tablet] 1 tab PO Q6H PRN #10 tablet MDD 4 11/11/15 Gabapentin 100 mg PO TID 03/11/16 Mupirocin Cream [Bactroban 2% Cream -] 1 applic TP BID #1 tube 05/07/16 Clonidine HCl [Catapres -] 0.3 mg PO TID #90 tablet 07/14/16 Hydralazine HCl [Apresoline -] 25 mg PO TID #60 tablet 07/14/16 Insulin (Levemir) [Levemir Vial] 25 units SQ DAILY@0700 #30 ml 07/14/16 Labetalol HCl [Normodyne -] 200 mg PO TID #90 tablet 07/14/16 Losartan Potassium [Cozaar -] 25 mg PO DAILY #30 tablet 07/14/16 Sevelamer Carbonate [Renvela -] 1,600 mg PO TIDCM #60 tab 07/14/16 Aspirin [ASA -] 325 mg PO DAILY 08/05/16 Cinacalcet HCl [Sensipar] 60 mg PO DAILY 08/05/16 Diphenhydramine [Benadryl -] 50 mg PO HS 08/05/16 Insulin Lispro [Humalog Kwikpen U-100] 0 unit SQ [facility]IR 08/05/16 Nifedipine [Procardia Xl] 30 mg PO TID 08/05/16 Sennosides [Senna] 8.6 mg PO DAILY 08/05/16 Review of Systems - Review of Systems Constitutional: Yes: Chills. No: Fever Respiratory: No: Cough, Shortness of Breath Cardiac (ROS): Yes: Chest Pain, Lightheadedness. No: Edema, Syncope ABD/GI: Yes: Nausea. No: Vomiting All Other Systems: Reviewed and Negative <Gen Duncan - Last Filed: 08/05/16 13:38> *Physical Exam - Vital Signs Last Vital Signs Temp Pulse Resp BP Pulse Ox 97.4 F L 78 18 132/71 100 08/05/16 11:25 08/05/16 11:08/05/16 11:08/05/16 11:08/05/16 11:25 - Physical Exam Comments: 08/05/16 12:32 GENERAL: The patient is awake, alert, and fully oriented, in no acute distress. HEAD: Normal with no signs of trauma. EYES: Pupils equal, round and reactive to light, extraocular movements intact, sclera anicteric, conjunctiva clear with no pallor. No jaundice. ENT: Ears normal, nares patent, oropharynx clear without exudates. +Dry mucous membranes. NECK: Normal range of motion, supple without lymphadenopathy, JVD, or masses. LUNGS: Breath sounds equal, clear to auscultation bilaterally. No wheeze/ crackles. HEART: Regular rate and rhythm, normal S1 and S2 without murmur or rub. ABDOMEN: Soft/nontender/nondistended. BS wnl. No guarding or rebound. No palpable masses. No hepatosplenomegaly. EXTREMITIES: +Left arm fistula with palpable pulse Normal range of motion. Right lower extremity chronically swollen than the left. No clubbing or cyanosis. No cords, erythema, or tenderness. NEUROLOGICAL: Cranial nerves II through XII grossly intact. Normal speech, normal gait. PSYCH: Normal mood, normal affect. SKIN: Warm, Dry, normal turgor, no rashes or lesions noted. <Mel Barber - Last Filed: 08/05/16 12:58> - Vital Signs Last Vital Signs Temp Pulse Resp BP Pulse Ox 97.4 F L 78 18 132/71 100 08/05/16 11:25 08/05/16 11:08/05/16 11:25 08/05/16 11:25 08/05/16 11:25 <Gen Duncan - Last Filed: 08/05/16 13:38> Heart Score/ECG Review #1 ECG reviewed & interpreted by me at: 11:55 General ECG Interpretation: Sinus Rhythm, Normal Rate (79), Normal Intervals ( qtc 477, qrs 96, IRBBB), No acute ischemic changes <Gen Duncan - Last Filed: 08/05/16 13:38> ED Treatment Course - LABORATORY CBC & Chemistry Diagram: 08/05/16 12:00 08/05/16 12:00 - ADDITIONAL ORDERS Additional order review: Laboratory Results 08/05/16 11:55 VBG pH 7.14 L* D POC VBG pCO2 27.9 L D POC VBG pO2 90.4 H D Mixed VBG HCO3 9.2 L* <Mel Barber - Last Filed: 08/05/16 12:58> - LABORATORY CBC & Chemistry Diagram: 08/05/16 12:00 08/05/16 12:00 - RADIOLOGY Radiology Studies Ordered: Category Date Time Status CHEST X-RAY PORTABLE* [RAD] Stat Radiology 08/05/16 11:55 Ordered <Gen Duncan - Last Filed: 08/05/16 13:38> Medical Decision Making - Medical Decision Making 08/05/16 12:[address] Nathan Vo 08/05/16 12:[address] Rocael Rojas. <Mel Barber - Last Filed: 08/05/16 12:58> - Critical Care Time Total Critical Care Time (minutes): 70 Critical Care Statement: The care of this patient involved high complexity decision making to prevent further life threatening deterioration of the patient 's condition and/or to evalute & treat vital organ system(s) failure or risk of failure. - Medical Decision Making 08/05/16 12:09 A portion of this note was documented by scribe services under my direction. I have reviewed the details of the note, within reason, and agree with the documentation with the following case summary and management plan written by me. 25-year-old female with history of insulin-dependent diabetes, end-stage renal disease on Wednesday/Wednesday/[facility] dialysis sent from dialysis before initiating treatment complaining of generalized weakness with nausea since this morning. Vague abdominal pain, no diarrhea. No fevers or chills. Last full dialysis was on Wednesday, has noted increased glucose levels at home despite compliance with her insolent. Per EMS, was tachycardic to 160 but resolved with adenosine, now sinus in the 70s dry mucosa LUE fistula neuro intact abd benign 25-year-old female well-known to this institution with generalized weakness and nausea, tachycardia resolved, elevated glucose. Presentation could be concerning for DKA, question etiology. EKG without evidence of hyperkalemia at this time, normal rate sepsis protocol initiated ivf, acetone, vbg likely admission 08/05/16 13:36 labs reveal DKA with acidemia, pH 7.1. Glucose 900, AG 27. Started in insulin drip and bicarb push. Dr. Vo consulted and at bedside, will dialyze in ICU. Accepted to ICU by Dr. Rojas. Accepted for admission by Dr. Jimbo Calero. <Gen Duncan - Last Filed: 08/05/16 13:38> *DC/Admit/Observation/Transfer - Attestations Scribe Attestion: 08/05/16 12:34 Documentation prepared by Mel Barber, acting as medical record retrieval specialist for Gen Duncan MD. <Mel Barber - Last Filed: 08/05/16 12:58> - Discharge Dispostion Admit: Yes <Gen Duncan - Last Filed: 08/05/16 13:38> Diagnosis at time of Disposition: ESRD (end stage renal disease) on dialysis Diabetes mellitus, insulin dependent (IDDM), uncontrolled Qualifiers: Diabetes mellitus complication status: with unspecified complications Qualified Code(s): E10.8 - Type 1 diabetes mellitus with unspecified complications; E10.65 - Type 1 diabetes mellitus with hyperglycemia DKA, type 1 Qualifiers: Diabetes mellitus complication detail: without coma Qualified Code(s): E10.10 - Type 1 diabetes mellitus with ketoacidosis without coma - Discharge Dispostion Condition at time of disposition: Guarded - Referrals Referrals: Edna Calero MD [Primary Care Provider] -
[2016-08-05] MEDS ORDERED: ONDANSETRON 4 MG/2 ML VIAL IVPUSH ONE (12:07)
[2016-08-05] MEDS ORDERED: SODIUM CHLORIDE 500 ML IV STA (12:07)
[2016-08-05 12:10] LABS: VENOUS PH 7.14 (7.32-7.42)
[2016-08-05 12:11] LABS: VENOUS BLOOD GAS HCO3 9.2 meq/L (19-25)
[2016-08-05] MEDS ORDERED: ONDANSETRON 4 MG/2 ML VIAL ONE (12:11)
[2016-08-05 12:27] LABS: INR 1.42 (0.82-1.09); PROTHROMBIN TIME (PATIENT) 15.7 SEC (9.98-11.88)
[2016-08-05 12:30] LABS: ACTIVATED PTT 35.2 SECONDS (26.9-34.4)
[2016-08-05 12:47] LABS: ALBUMIN 2.8 g/dl (3.4-5.0); ANION GAP 27 (8-16); BILIRUBIN,TOTAL 0.7 mg/dL (0.2-1.0); CALCIUM 8.1 mg/dL (8.5-10.1); CO2 10 mmol/L (21-32); COCKROFT - GAULT 12.3845; CREATININE 6.9 mg/dL (0.55-1.02); SGOT/AST 25 U/L (15-37); SGPT/ALT 20 U/L (12-78)
[2016-08-05 12:52] LABS: ALK PHOS 998 U/L (45-117)
[2016-08-05 12:53] LABS: GLUCOSE,RANDOM 905 mg/dL (74-106)
[2016-08-05 12:54] LABS: TROPONIN I < 0.01 ng/ml (0.00-0.05)
[2016-08-05] MEDS ORDERED: INSULIN REGULAR HUMAN 100 UNITS/ML *VIAL IVPUSH ONE (12:57)
[2016-08-05] MEDS ORDERED: SODIUM BICARBONATE 8.4% 50 MEQ/50 ML DISP.SYRIN IVPUSH ONE (12:57)
[2016-08-05 12:58] LABS: BASOPHIL 0.1 % (0-2.0); EOSINOPHIL 0.1 % (0-4.5); MCH 24.6 pg (25.7-33.7); MCHC 28.1 g/dl (32.0-36.0); MEAN CELL VOLUME 87.4 fl (80-96); NEUTROPHILS 90.5 % (42.8-82.8); PLATELET COUNT 445 K/MM3 (134-434); RDW 19.9 % (11.6-15.6); WHITE BLOOD COUNT 13.9 K/mm3 (4.0-10.0)
[2016-08-05] MEDS ORDERED: INSULIN REGULAR 100 UNITS in SODIUM CHLORIDE 99 ML IVPB SCH ×2 (13:00→18:52)
[2016-08-05] MEDS ORDERED: SODIUM BICARBONATE 8.4% 50 MEQ/50 ML VIAL ONE (13:07)
[2016-08-05] MEDS ORDERED: INSULIN REGULAR HUMAN 100 UNITS/ML *VIAL ONE ×2 (13:09→13:18)
[2016-08-05] MEDS ORDERED: NIFEdipine E.R. 30 MG TABLET (FP) PO SCH (14:00)
--- NOTE | 2016-08-05 14:03 | EKG ---
Test Reason : Blood Pressure : / mmHG Vent. Rate : 079 BPM Atrial Rate : 079 BPM P-R Int : 208 ms QRS Dur : 096 ms QT Int : 416 ms P-R-T Axes : 044 070 057 degrees QTc Int : 477 ms NORMAL SINUS RHYTHM POSSIBLE LEFT ATRIAL ENLARGEMENT INCOMPLETE RIGHT BUNDLE BRANCH BLOCK CANNOT RULE OUT ANTERIOR INFARCT (CITED ON OR BEFORE 11-MAR-2016) ABNORMAL ECG WHEN COMPARED WITH ECG OF 09-JUL-2016 00:53, INCOMPLETE RIGHT BUNDLE BRANCH BLOCK IS NOW PRESENT Confirmed by REBECCA KATHLEEN, OLIVA ([id number]) on 08/05/2016 2:03:15 PM Referred By: Confirmed By:OLIVA FERNANDEZ MD
--- NOTE | 2016-08-05 15:32 | CONSULT ---
Consult - text type - Consultation Consultation Note: Renal Consult for urgent dialysis Pt seen and examined in the ICU This is a 25 year old woman well known to our service with PMhx of ESRD on HD, IDDM, PVD who presented with tachycardia/low BP from HD unit and found to have Hyperkalemia and DKA. Pt states that she was feeling well up unitl this morning. Last dialysis was on Wednesday w/o complication. Reports taking her insulin as prescribed. No fever or chllls. + abd pain. No N/V/D. Pt in the ED awaiting ICU bed. Denies any sob. PMhx: as above Allergeies: NKDA Family Hx: NC Social Hx: No T/A/D ROS: as per HPI, all other pertinent ros negative Home Meds: Home Medications Medication Instructions Recorded Oxycodone HCl/Acetaminophen 1 tab PO Q6H PRN #10 tablet MDD 4 11/11/15 [Percocet 5-325 mg Tablet] Gabapentin 100 mg PO TID 03/11/16 Mupirocin Cream [Bactroban 2% 1 applic TP BID #1 tube 05/07/16 Cream -] Clonidine HCl [Catapres -] 0.3 mg PO TID #90 tablet 07/14/16 Hydralazine HCl [Apresoline -] 25 mg PO TID #60 tablet 07/14/16 Insulin (Levemir) [Levemir Vial] 25 units SQ DAILY@0700 #30 ml 07/14/16 Labetalol HCl [Normodyne -] 200 mg PO TID #90 tablet 07/14/16 Losartan Potassium [Cozaar -] 25 mg PO DAILY #30 tablet 07/14/16 Sevelamer Carbonate [Renvela -] 1,600 mg PO TIDCM #60 tab 07/14/16 Aspirin [ASA -] 325 mg PO DAILY 08/05/16 Cinacalcet HCl [Sensipar] 60 mg PO DAILY 08/05/16 Diphenhydramine [Benadryl -] 50 mg PO HS 08/05/16 Insulin Lispro [Humalog Kwikpen 0 unit SQ ASDIR 08/05/16 U-100] Nifedipine [Procardia Xl] 30 mg PO TID 08/05/16 Sennosides [Senna] 8.6 mg PO DAILY 08/05/16 Vital Signs Temperature 97.4 F L 08/05/16 15:25 Pulse Rate 86 08/05/16 19:45 Respiratory Rate 18 08/05/16 19:45 Blood Pressure 163/84 08/05/16 19:45 O2 Sat by Pulse Oximetry (%) 100 08/05/16 14:46 Gen: Groggy but arouseable HEENT: NC/AT CVS: RRR, No M/R Lungs: CTA Abd: soft NT/ND Ext: Trace to 1+ LE edmea Access; AVF CBC, BMP 08/05/16 12:00 08/05/16 18:45 Current Medications Acetaminophen (Tylenol -) 325 mg PO Q6H PRN PRN Reason: PAIN LEVEL 6-10 Last Admin: 08/05/16 21:15 Dose: 325 mg Aspirin (Asa -) 325 mg PO DAILY [facility] Chlorhexidine Gluconate (Hibiclens For Decolonization -) 1 applic TP HS [facility] Last Admin: 08/05/16 21:16 Dose: 1 applic Cinacalcet (Sensipar -) 60 mg PO DAILY [facility] Clonidine (Catapres -) 0.3 mg PO TID [facility] Last Admin: 08/05/16 21:14 Dose: 0.3 mg Gabapentin (Neurontin -) 100 mg PO TID [facility] Last Admin: 08/05/16 21:14 Dose: 100 mg Hydralazine HCl (Apresoline -) 25 mg PO TID [facility] Last Admin: 08/05/16 21:14 Dose: 25 mg Insulin Human Regular 100 (units/ Sodium Chloride) 100 mls @ 6.57 mls/hr IVPB TITR ROSA MARIA; 0.1 UNITS/KG/HR PRN Reason: Protocol Last Admin: 08/05/16 19:09 Dose: 6.57 mls/hr Insulin Detemir (Levemir Vial) 10 units SQ BID [facility] Last Admin: 08/05/16 20:41 Dose: 10 units Labetalol HCl (Normodyne -) 200 mg PO TID [facility] Last Admin: 08/05/16 21:15 Dose: 200 mg Losartan Potassium (Cozaar -) 25 mg PO DAILY [facility] Mupirocin (Bactroban Ointment (For Decolonization) -) 1 applic NS BID [facility] Stop: 08/10/16 21:59 Last Admin: 08/05/16 21:16 Dose: 1 applic Nifedipine (Procardia Xl -) 30 mg PO DAILY [facility] Oxycodone HCl (Roxicodone -) 5 mg PO Q6H PRN PRN Reason: PAIN LEVEL 6-10 Last Admin: 08/05/16 21:17 Dose: 5 mg Senna (Senna -) 1 tab PO DAILY [facility] Sevelamer Carbonate (Renvela -) 1,600 mg PO TIDCM [facility] Last Admin: 08/05/16 16:51 Dose: Not Given A/P 5 year old woman well known to our service with PMhx of ESRD on HD, IDDM, PVD who presented with tachycardia/low BP from HD unit and found to have Hyperkalemia and DKA. #ESRD on HD with Hyperkalemia (no ekg changes) for urgent HD today in the ICU will use 2k bath for 2 hours Trend K, NA #DKA/IDDM on INsuin gtt #Pseudohyponatremia (corrected Na is 140) No acute intervention needed #Chronic Anemia continue MACIE with dialysis Thank you Nathan Vo DO
[2016-08-05 15:54] VITALS: BMI 26.4
--- NOTE | 2016-08-05 16:10 | CONSULT ---
Addendum entered and electronically signed by Krishna Acosta RES 08/05/16 16:52 : Hb a1c in july 17.6 Original Note: Consultation: REQUESTING PROVIDER: CONSULT REQUEST: We have been asked to medically evaluate this patient for ( specify). HISTORY OF PRESENT ILLNESS: The patient is a 25-year-old woman with a significant past medical history of anemia, hypertension, insulin-dependent diabetes mellitus, end-stage renal disease (on hemodialysis q. M/W/; received full dialysis on Wednesday without complications), myosistis, osteomylities (right fifth digit surgery) and seizure disorder. Patient stattes that this morning when she woke up she was dizzy, nauseated and had heart burn. She went to dialysis center where she was found to have low BP and was sent to ED. Patient in ED was found to have DKA, hyperkalemia. IN ED patient blood pressure was normal. In ED patient patient got sodium bicarb, ns 500ml, odansetron. Patient started on insulin drip. Patient denies chest pain, sob, vomiting, pain abdomen. she states that she takes her insulin regularly Patient was sent to ICU for further management. No EKG changes. patient doesn't make urine In ICu patient was started on HD. REVIEW OF SYSTEMS: CONSTITUTIONAL: Absent: fever, chills, diaphoresis, generalized weakness, malaise, loss of appetite, weight change HEENT: Absent: rhinorrhea, nasal congestion, throat pain, throat swelling, difficulty swallowing, mouth swelling, ear pain, eye pain, visual changes CARDIOVASCULAR: Absent: chest pain, syncope, palpitations, irregular heart rate, lightheadedness , RESPIRATORY: Absent: cough, shortness of breath, dyspnea with exertion, orthopnea, wheezing, stridor, hemoptysis GASTROINTESTINAL: Absent: abdominal pain, abdominal distension, nausea, vomiting, diarrhea, MUSCULOSKELETAL: Absent: joint swelling, back pain, neck pain SKIN: present itching, PSYCHIATRIC: Absent: anxiety, depression, PHYSICAL EXAMINATION Vital Signs - 24 hr 08/05/16 08/05/16 13:52 14:46 Temperature 97.6 F Pulse Rate [ 78 77 Apical] Respiratory 20 18 Rate Blood Pressure 134/74 133/71 [Right Arm] O2 Sat by Pulse 100 100 Oximetry (%) GENERAL: Awake, alert, and fully oriented, in no acute distress. HEAD: Normal with no signs of trauma. EYES: Pupils equal, round and reactive to light, extraocular movements intact, EARS, NOSE, THROAT: Ears normal, nares patent, oropharynx clear without exudates. dry mucous membranes. NECK: Normal range of motion, supple without lymphadenopathy, LUNGS: Breath sounds equal, clear to auscultation bilaterally, crackels present in b/l base, r>l HEART:s1s2 n ABDOMEN: Soft, nontender, not distended, normoactive bowel sounds, no guarding, no rebound, no masses. MUSCULOSKELETAL: Normal range of motion at all joints. No bony deformities or tenderness. No CVA tenderness. UPPER EXTREMITIES: 2+ pulses, warm, well-perfused. LOWER EXTREMITIES: 2+ pulses, warm, well-perfused. No calf tenderness. right leg has chronic swelling NEUROLOGICAL: Cranial nerves II-XII intact. PSYCHIATRIC: Cooperative. Good eye contact. SKIN: Warm, dry, Laboratory Results - last 24 hr 08/05/16 14:12 POC Glucometer > 400 Active Medications Generic Name Dose Route Start Last Admin Trade Name Freq PRN Reason Stop Dose Admin Aspirin 325 mg 08/06/16 10:00 Asa - PO DAILY ROSA MARIA Cinacalcet 60 mg 08/06/16 10:00 Sensipar - PO DAILY ROSA MARIA Clonidine 0.3 mg 08/05/16 14:00 Catapres - PO TID ROSA MARIA Gabapentin 100 mg 08/05/16 14:00 Neurontin - PO TID ROSA MARIA Hydralazine HCl 25 mg 08/05/16 14:00 Apresoline - PO TID ROSA MARIA Insulin Human Regular 100 100 mls @ 6.35 mls/hr 08/05/16 13:00 08/05/16 13:21 units/ Sodium Chloride IVPB 6.35 mls/hr TITR ROSA MARIA Administration Protocol 0.1 UNITS/KG/HR Labetalol HCl 200 mg 08/05/16 14:00 Normodyne - PO TID ROSA MARIA Losartan Potassium 25 mg 08/06/16 10:00 Cozaar - PO DAILY ROSA MARIA Nifedipine 30 mg 08/05/16 14:00 Procardia Xl - PO TID ROSA MARIA Senna 1 tab 08/06/16 10:00 Senna - PO DAILY ROSA MARIA Sevelamer Carbonate 1,600 mg 08/05/16 17:30 Renvela - PO TIDCM ROSA MARIA CBCD WBC 13.9 K/mm3 (4.0-10.0) H 08/05/16 12:00 RBC 3.30 M/mm3 (3.60-5.2) L 08/05/16 12:00 Hgb 8.1 GM/dL (10.7-15.3) L 08/05/16 12:00 Hct 28.8 % (32.4-45.2) L 08/05/16 12:00 MCV 87.4 fl (80-96) 08/05/16 12:00 MCHC 28.1 g/dl (32.0-36.0) L 08/05/16 12:00 RDW 19.9 % (11.6-15.6) H 08/05/16 12:00 Plt Count 445 K/MM3 (134-434) H 08/05/16 12:00 MPV 9.0 fl (7.5-11.1) 08/05/16 12:00 CMP Sodium 121 mmol/L (136-145) L* D 08/05/16 12:00 Potassium 7.1 mmol/L (3.5-5.1) H* D 08/05/16 12:00 Chloride 84 mmol/L (98-107) L D 08/05/16 12:00 Carbon Dioxide 10 mmol/L (21-32) L D 08/05/16 12:00 Anion Gap 27 (8-16) H 08/05/16 12:00 BUN 68 mg/dL (7-18) H D 08/05/16 12:00 Creatinine 6.9 mg/dL (0.55-1.02) H 08/05/16 12:00 Creat Clearance w eGFR 7.21 (>60) 08/05/16 12:00 Random Glucose 905 mg/dL (74-106) H* D 08/05/16 12:00 Calcium 8.1 mg/dL (8.5-10.1) L 08/05/16 12:00 Total Bilirubin 0.7 mg/dL (0.2-1.0) D 08/05/16 12:00 AST 25 U/L (15-37) D 08/05/16 12:00 ALT 20 U/L (12-78) D 08/05/16 12:00 Alkaline Phosphatase 998 U/L (45-117) H 08/05/16 12:00 Total Protein 8.0 g/dl (6.4-8.2) 08/05/16 12:00 Albumin 2.8 g/dl (3.4-5.0) L 08/05/16 12:00 CARDIAC ENZYMES Creatine Kinase 871 IU/L (26-192) H D 08/05/16 12:00 Troponin I < 0.01 ng/ml (0.00-0.05) 08/05/16 12:00 ASSESSMENT/PLAN: DKA h/o IDDM -diet noncompliant -glucose admission 905, gap 27 -on insulin drip - bgm 1 hour - repeat bmp q4h - NPO - monitor k, anion gap - not on IV fluid, patient has ESRD, on HD, dont make urine ESRD -HD MWF -Renal on case -renal diet - monitor electrolytes Pseudohyponatremia (corrected Na is 140) due to hyperglycemai hyperkalemia on hd monitor k no ekg changes got sodium bicarb in ed Chronic Anemia due to ESRD Hb 8.1, monitor haemoglobin HTN continue with clonidine ,, labetalol, procardia, losartan, hydralazine Elevated alk phos, 998 -in last admission close to 1000 - usg in last admission shows enlarged liver, - Elevated alk phos may be from bone (osteo + renal osteodystrophy) - follow gtt and usg liver Constipation -on senna FEN fluid: avoid iv fluid, patient goes in overload electrolyte: follow electrolyte nutrition: npo for now Dispo: in icu Dispo: We will continue to follow the patient. Thank you for this consultative opportunity. Visit type - Emergency Visit Emergency Visit: Yes ED Registration Date: 08/05/16 Care time: The patient presented to the Emergency Department on the above date and was hospitalized for further evaluation of their emergent condition. - New Patient This patient is new to me today: No - Critical Care Critical Care patient: Yes Total Critical Care Time (in minutes): 45 Critical Care Statement: The care of this patient involved high complexity decision making to prevent further life threatening deterioration of the patient 's condition and/or to evalute & treat vital organ system(s) failure or risk of failure.
[2016-08-05] MEDS: hydrALAZINE HCL 25 MG TABLET (FP) PO SCH ×2 (16:35→21:14)
[2016-08-05] MEDS: LABETALOL HCL 200 MG TABLET (FP) PO SCH ×2 (16:35→21:15)
[2016-08-05] MEDS: cloNIDine HCL 0.1 MG TABLET PO SCH ×2 (16:35→21:14)
[2016-08-05] MEDS: GABAPENTIN 100 MG CAPSULE (FP) PO SCH ×2 (16:35→21:14)
[2016-08-05] MEDS ORDERED: diphenhydrAMINE HCL 25 MG CAPSULE (FP) PO ONE (16:44)
[2016-08-05] MEDS: SEVELAMER CARBONATE 800 MG TAB (FP) PO SCH (16:51)
[2016-08-05] MEDS ORDERED: EPOETIN ALFA 10,000 UNIT/1 ML VIAL IVPUSH ONE (17:00)
[2016-08-05 18:41] LABS: CALCIUM 7.8 mg/dL (8.5-10.1)
[2016-08-05 18:44] LABS: COCKROFT - GAULT 20.4; CREATININE 4.2 mg/dL (0.55-1.02)
[2016-08-05 19:39] LABS: CALCIUM 8.2 mg/dL (8.5-10.1); COCKROFT - GAULT 36.55; CREATININE 2.4 mg/dL (0.55-1.02)
[2016-08-05] MEDS: INSULIN DETEMIR 100 UNITS/ML MDV SQ SCH (20:41)
[2016-08-05] MEDS ORDERED: OXYCODONE/APAP 5/325MG COMBO TABLET PO PRN (20:47)
--- NOTE | 2016-08-05 20:53 | CONSULT ---
Consult - text type - Consultation Consultation Note: Pulm/CCM Pt seen and examined in ICU CC: weakness HPI: Briefly Ms Sawyer is a 25-year-old woman with a past medical history of anemia, hypertension, IDDM, ESRD (on hemodialysis q. M/W/; last full dialysis on Wednesday without complications), myositis, and seizure disorder. She presented to ED, transferred from HD center for low BP. They did not initiate HD. In ED pt was afebrile, normotensive, without distress. Patient denied chest pain, sob , vomiting, pain abdomen. Labs were notable for BGL 900, HCo3 10, K 7, AG 27. EKG with acute changes. Given hyperkalemia cocktail and strated on insulin gtt. She was transferred to ICU where she underwent urgent HD. By afternoon GBL level 190 and AG to 10. Transitioned from Inulin gtt to long acting SQ levamir. Eating well. There was no localizing symptoms of infection. Ambulatory Orders Oxycodone HCl/Acetaminophen [Percocet 5-325 mg Tablet] 1 tab PO Q6H PRN #10 tablet MDD 4 11/11/15 Gabapentin 100 mg PO TID 03/11/16 Mupirocin Cream [Bactroban 2% Cream -] 1 applic TP BID #1 tube 05/07/16 Clonidine HCl [Catapres -] 0.3 mg PO TID #90 tablet 07/14/16 Hydralazine HCl [Apresoline -] 25 mg PO TID #60 tablet 07/14/16 Insulin (Levemir) [Levemir Vial] 25 units SQ DAILY@0700 #30 ml 07/14/16 Labetalol HCl [Normodyne -] 200 mg PO TID #90 tablet 07/14/16 Losartan Potassium [Cozaar -] 25 mg PO DAILY #30 tablet 07/14/16 Sevelamer Carbonate [Renvela -] 1,600 mg PO TIDCM #60 tab 07/14/16 Aspirin [ASA -] 325 mg PO DAILY 08/05/16 Cinacalcet HCl [Sensipar] 60 mg PO DAILY 08/05/16 Diphenhydramine [Benadryl -] 50 mg PO HS 08/05/16 Insulin Lispro [Humalog Kwikpen U-100] 0 unit SQ ASDIR 08/05/16 Nifedipine [Procardia Xl] 30 mg PO TID 08/05/16 Sennosides [Senna] 8.6 mg PO DAILY 08/05/16 Past Medical History [employer] Cardio/Vascular CHF,HTN,Other Pulmonary Pulmonary Embolus Renal/ Renal Failure,Hemodialysis Heme/Onc Other Infectious Disease MRSA Endocrine Diabetes Mellitus Additional Medical History DVT, PE on coumadin Past Surgical History Past Surgical History AV Fistula/Graft Social History Smoking history Unknown if ever smoked Have you smoked in the past 12 No months Hx Alcohol Use No History of Substance Use None Usual Living Arrangement With Parent ADL Independent Occupation unemployed Vital Signs Temp 97.4 F L 08/05/16 15:25 Pulse 86 08/05/16 19:45 Resp 18 08/05/16 19:45 BP 163/84 08/05/16 19:45 Pulse Ox 100 08/05/16 14:46 Intake & Output 08/04/16 08/05/16 08/05/16 23:59 11:59 23:59 Intake Total 24 Balance 24 Weight 63.503 kg 65.7 kg Intake: IV 24 NOVOLIN R VIAL *For 24 IVPUSH or IV DRIP Only* 100 UNITS In Normal Saline - 99 ml @ 0.1 UNITS/KG/HR 6.57 mls/hr IVPB TITR ROSA MARIA Rx#: [id number] Other: Height 5 ft 2 in 5 ft 2 in Body Mass Index (BMI) 25.6 26.4 Weight Measurement Method Built in [facility] . Laboratory Results - last 24 hr 08/05/16 08/05/16 08/05/16 11:55 12:00 12:00 WBC 13.9 H RBC 3.30 L Hgb 8.1 L Hct 28.8 L MCV 87.4 MCHC 28.1 L RDW 19.9 H Plt Count 445 H MPV 9.0 Neutrophils % 90.5 H Lymphocytes % 2.8 L D Monocytes % 6.5 Eosinophils % 0.1 D Basophils % 0.1 INR 1.42 H PTT (Actin FS) 35.2 H VBG pH 7.14 L* D POC VBG pCO2 27.9 L D POC VBG pO2 90.4 H D Mixed VBG HCO3 9.2 L* Sodium Potassium Chloride Carbon Dioxide Anion Gap BUN Creatinine Creat Clearance w eGFR POC Glucometer Random Glucose Lactic Acid Calcium Total Bilirubin AST ALT Alkaline Phosphatase Creatine Kinase CK-MB (CK-2) Troponin I Total Protein Albumin Serum , Qual Acetone, Qual Blood Type Antibody Screen 08/05/16 08/05/16 08/05/16 12:00 12:00 12:00 WBC RBC Hgb Hct MCV MCHC RDW Plt Count MPV Neutrophils % Lymphocytes % Monocytes % Eosinophils % Basophils % INR PTT (Actin FS) VBG pH POC VBG pCO2 POC VBG pO2 Mixed VBG HCO3 Sodium 121 L* D Potassium 7.1 H* D Chloride 84 L D Carbon Dioxide 10 L D Anion Gap 27 H BUN 68 H D Creatinine 6.9 H Creat Clearance w eGFR 7.21 POC Glucometer Random Glucose 905 H* D Lactic Acid 1.526 Calcium 8.1 L Total Bilirubin 0.7 D AST 25 D ALT 20 D Alkaline Phosphatase 998 H Creatine Kinase 871 H D CK-MB (CK-2) 7.709 H Troponin I < 0.01 Total Protein 8.0 Albumin 2.8 L Serum , Qual Acetone, Qual Blood Type B POSITIVE Antibody Screen Negative 08/05/16 08/05/16 08/05/16 12:39 12:50 14:12 WBC RBC Hgb Hct MCV MCHC RDW Plt Count MPV Neutrophils % Lymphocytes % Monocytes % Eosinophils % Basophils % INR PTT (Actin FS) VBG pH POC VBG pCO2 POC VBG pO2 Mixed VBG HCO3 Sodium Potassium Chloride Carbon Dioxide Anion Gap BUN Creatinine Creat Clearance w eGFR POC Glucometer > 400 Random Glucose Lactic Acid Calcium Total Bilirubin AST ALT Alkaline Phosphatase Creatine Kinase CK-MB (CK-2) Troponin I Total Protein Albumin Serum , Qual Negative Acetone, Qual Positive moderate 2+ H Blood Type Antibody Screen 08/05/16 08/05/16 08/05/16 15:00 15:17 17:00 WBC RBC Hgb Hct MCV MCHC RDW Plt Count MPV Neutrophils % Lymphocytes % Monocytes % Eosinophils % Basophils % INR PTT (Actin FS) VBG pH POC VBG pCO2 POC VBG pO2 Mixed VBG HCO3 Sodium 135 L D Potassium 4.2 D Chloride 92 L Carbon Dioxide 24 D Anion Gap 19 H BUN 42 H D Creatinine 4.2 H D Creat Clearance w eGFR POC Glucometer > 400 Random Glucose 481 H* D Lactic Acid 1.210 Calcium 7.8 L Total Bilirubin AST ALT Alkaline Phosphatase Creatine Kinase CK-MB (CK-2) Troponin I Total Protein Albumin Serum , Qual Acetone, Qual Blood Type Antibody Screen 08/05/16 08/05/16 18:45 18:47 WBC RBC Hgb Hct MCV MCHC RDW Plt Count MPV Neutrophils % Lymphocytes % Monocytes % Eosinophils % Basophils % INR PTT (Actin FS) VBG pH POC VBG pCO2 POC VBG pO2 Mixed VBG HCO3 Sodium 137 Potassium 3.3 L D Chloride 96 L Carbon Dioxide 31 D Anion Gap 10 BUN 20 H D Creatinine 2.4 H D Creat Clearance w eGFR POC Glucometer [phone] Random Glucose 246 H D Lactic Acid Calcium 8.2 L Total Bilirubin AST ALT Alkaline Phosphatase Creatine Kinase CK-MB (CK-2) Troponin I Total Protein Albumin Serum , Qual Acetone, Qual Blood Type Antibody Screen REVIEW OF SYSTEMS: CONSTITUTIONAL: Absent: fever, chills, diaphoresis, malaise, loss of appetite, weight change: Present generalized weakness HEENT: Absent: rhinorrhea, nasal congestion, throat pain, throat swelling, difficulty swallowing, mouth swelling, ear pain, eye pain, visual changes CARDIOVASCULAR: Absent: chest pain, syncope, palpitations, irregular heart rate. Present: lightheadedness, RESPIRATORY: Absent: cough, shortness of breath, dyspnea with exertion, orthopnea, wheezing, stridor, hemoptysis GASTROINTESTINAL: Absent: abdominal pain, abdominal distension, vomiting, diarrhea. Present: nausea MUSCULOSKELETAL: Absent: joint swelling, back pain, neck pain SKIN: Absent: Rash. Present itching PSYCHIATRIC: Absent: anxiety, depression, EKG: SR with normal axis,incomplete R bundle. PE: Gen: awake, alert, young woman without distress HEENT: EOMI, PERRL PULM: clear anterior, no wheezes CV: RR, no m/r/g appreciated ABD: soft, NT, ND EXT: AVF with thrill, trace edema. NEURO: intact ASSESSMENT/PLAN: 25 y/o woman with poorly controlled HTN and IDDM, p/w weakness and hypotension at HD center, found to be in DKA in ED now s/p urgent HD and on insulin gtt DKA h/o IDDM -diet noncompliant -glucose admission 905, gap 27, now closed - insulin drip---> to levamir now that < 250 and eathing - bgm 1 hour - repeat bmp q6 - renal/diabetic diet ESRD -HD MWF -Nephrology following, now s/p HD -watch for K rebound Chronic Anemia due to ESRD Hb 8.1, normal transfusion thresholds HTN cont clonidine ,, labetalol, procardia, losartan, hydralazine chronically Elevated alk phos, 998 -has been worked up. can follow as OP Constipation -on senna FEN -renal/diabetic diet Dispo: to floor in am if gap remains closed Ghassan Springer ACNP 9250 35min CCT
[2016-08-05] MEDS: ACETAMINOPHEN 325 MG TABLET (FP) PO PRN (21:15)
[2016-08-05] MEDS: MUPIROCIN 2% TOPICAL OINTMENT FOR DECOLONIZATION NS SCH (21:16)
[2016-08-05] MEDS: oxyCODONE HCL 5 MG TABLET PO PRN (21:17)
[2016-08-05] MEDS ORDERED: CHLORHEXIDINE GLUCONATE 4% CLEANSER FOR DECOLONIZATION TP SCH (22:00)
--- NOTE | 2016-08-05 22:13 | CONSULT ---
Consult Consult Specialty:: endocrine Referred by:: Reason for Consultation:: dka - History of Present Illness Chief Complaint: nauseas,weak and high sugars History of Present Illness: 25-year-old woman with a significant past medical history of iddm type 1 anemia , hypertension, deep venous thrombosis, pulmonary embolism (on Coumadin), insulin-dependent diabetes mellitus, end-stage renal disease (on hemodialysis q. M/W/F; received full dialysis on Wednesday without complications), myosistis, osteomylities (right fifth digit surgery) and seizure disorder who was sent from her dialysis center to the emergency department via EMS for further evaluation of generalized weakness. Patient was unable to receive dialysis found to have high blood sugars and admitted for dka. she had been taking insulin daily denies hypoglycemia,today felt weak and increasingly nauseas,high sugars and hyperkalemia - History Source History Provided By: Patient - Past Medical History Cardio/Vascular: Yes: CHF, HTN, Other (thrombus in heart per echo 11/2013; ? subclavian vein thromboses s/p dialysis catheters in the past) Pulmonary: Yes: Pulmonary Embolus Renal/: Yes: Renal Failure, Hemodialysis ...LMP: 10/02/15 ...: No Infectious Disease: Yes: MRSA (history of bacteremia, recent mrsa foot abscess) Endocrine: Yes: Diabetes Mellitus (type 1 on insulin pump) Additional Medical History: DVT, PE on coumadin - Past Surgical History Past Surgical History: Yes: AV Fistula/Graft (Right arm) - Alcohol/Substance Use Hx Alcohol Use: No History of Substance Use: reports: None - Smoking History Smoking history: Unknown if ever smoked Have you smoked in the past 12 months: No Aproximately how many cigarettes per day: 10 - Social History Usual Living Arrangement: With Parent ADL: Independent Occupation: unemployed History of Recent Travel: No Home Medications - Allergies Allergies/Adverse Reactions: Allergies Allergy/AdvReac Type Severity Reaction Status Date / Time No Known Drug Allergies Allergy Verified 08/05/16 12:42 - Home Medications Home Medications: Ambulatory Orders Oxycodone HCl/Acetaminophen [Percocet 5-325 mg Tablet] 1 tab PO Q6H PRN #10 tablet MDD 4 11/11/15 Gabapentin 100 mg PO TID 03/11/16 Mupirocin Cream [Bactroban 2% Cream -] 1 applic TP BID #1 tube 05/07/16 Clonidine HCl [Catapres -] 0.3 mg PO TID #90 tablet 07/14/16 Hydralazine HCl [Apresoline -] 25 mg PO TID #60 tablet 07/14/16 Insulin (Levemir) [Levemir Vial] 25 units SQ DAILY@0700 #30 ml 07/14/16 Labetalol HCl [Normodyne -] 200 mg PO TID #90 tablet 07/14/16 Losartan Potassium [Cozaar -] 25 mg PO DAILY #30 tablet 07/14/16 Sevelamer Carbonate [Renvela -] 1,600 mg PO TIDCM #60 tab 07/14/16 Aspirin [ASA -] 325 mg PO DAILY 08/05/16 Cinacalcet HCl [Sensipar] 60 mg PO DAILY 08/05/16 Diphenhydramine [Benadryl -] 50 mg PO HS 08/05/16 Insulin Lispro [Humalog Kwikpen U-100] 0 unit SQ ASDIR 08/05/16 Nifedipine [Procardia Xl] 30 mg PO TID 08/05/16 Sennosides [Senna] 8.6 mg PO DAILY 08/05/16 Family Disease History - Family Disease History Family Disease History: Diabetes: Grandparent (HTN), Heart Disease: Grandparent , Other: Father (unknown), Mother (HTN) Review of Systems - Review of Systems Constitutional: reports: Loss of Appetite, Unintentional Wgt. Loss Eyes: reports: Blurred Vision HENT: reports: No Symptoms Neck: reports: No Symptoms Cardiovascular: reports: Shortness of Breath Respiratory: reports: Exercise Intolerance, SOB on Exertion Gastrointestinal: reports: Abdominal Pain Genitourinary: reports: No Symptoms Breasts: reports: No Symptoms Reported Musculoskeletal: reports: Muscle Pain, Muscle Cramps, Muscle Weakness Integumentary: reports: No Symptoms Neurological: reports: Dizziness, Weakness Endocrine: reports: Unexplained Weight Loss Physical Exam Vital Signs: Vital Signs Temperature 97.4 F L 08/05/16 15:25 Pulse Rate 86 08/05/16 19:45 Respiratory Rate 18 08/05/16 19:45 Blood Pressure 163/84 08/05/16 19:45 O2 Sat by Pulse Oximetry (%) 100 08/05/16 14:46 Constitutional: Yes: Anxious Eyes: Yes: EOM Intact HENT: Yes: WNL Neck: Yes: WNL Respiratory: Yes: WNL Gastrointestinal: Yes: Normal Bowel Sounds, Tenderness, Epigastrium ...Rectal Exam: Yes: Deferred Edema: No Neurological: Yes: Alert, Oriented Labs: CBC, [facility] 08/05/16 18:45 Problem List - Problems (1) DKA, type 1 Code(s): E10.10 - TYPE 1 DIABETES MELLITUS WITH KETOACIDOSIS WITHOUT COMA Qualifiers: Diabetes mellitus complication detail: without coma Qualified Code(s): E10.10 - Type 1 diabetes mellitus with ketoacidosis without coma (2) Diabetes mellitus, insulin dependent (IDDM), uncontrolled Code(s): E10.65 - TYPE 1 DIABETES MELLITUS WITH HYPERGLYCEMIA Qualifiers: Diabetes mellitus complication status: with unspecified complications Qualified Code(s): E10.8 - Type 1 diabetes mellitus with unspecified complications; E10.65 - Type 1 diabetes mellitus with hyperglycemia (3) ESRD (end stage renal disease) on dialysis Code(s): N18.6 - END STAGE RENAL DISEASE Z99.2 - DEPENDENCE ON RENAL DIALYSIS (4) Diabetic foot infection Code(s): E11.69 - TYPE 2 DIABETES MELLITUS WITH OTHER SPECIFIED COMPLICATION L08.9 - LOCAL INFECTION OF THE SKIN AND SUBCUTANEOUS TISSUE, UNSP Assessment/Plan Current Active Problems DKA, type 1 (Acute) Diabetes mellitus, insulin dependent (IDDM), uncontrolled (Acute) Leukocytosis (Acute) ESRD (end stage renal disease) on dialysis (Chronic) Abnormal Lab Results 08/05/16 08/05/16 08/05/16 11:55 12:00 12:00 WBC 13.9 H RBC 3.30 L Hgb 8.1 L Hct 28.8 L MCHC 28.1 L RDW 19.9 H Plt Count 445 H Neutrophils % 90.5 H Lymphocytes % 2.8 L D INR 1.42 H PTT (Actin FS) 35.2 H VBG pH 7.14 L* D POC VBG pCO2 27.9 L D POC VBG pO2 90.4 H D Mixed VBG HCO3 9.2 L* Sodium Potassium Chloride Carbon Dioxide Anion Gap BUN Creatinine Random Glucose Calcium Alkaline Phosphatase Creatine Kinase CK-MB (CK-2) Albumin Acetone, Qual 08/05/16 08/05/16 08/05/16 12:00 12:39 17:00 WBC RBC Hgb Hct MCHC RDW Plt Count Neutrophils % Lymphocytes % INR PTT (Actin FS) VBG pH POC VBG pCO2 POC VBG pO2 Mixed VBG HCO3 Sodium 121 L* D 135 L D Potassium 7.1 H* D Chloride 84 L D 92 L Carbon Dioxide 10 L D Anion Gap 27 H 19 H BUN 68 H D 42 H D Creatinine 6.9 H 4.2 H D Random Glucose 905 H* D 481 H* D Calcium 8.1 L 7.8 L Alkaline Phosphatase 998 H Creatine Kinase 871 H D CK-MB (CK-2) 7.709 H Albumin 2.8 L Acetone, Qual Positive moderate 2+ H 08/05/16 18:45 WBC RBC Hgb Hct MCHC RDW Plt Count Neutrophils % Lymphocytes % INR PTT (Actin FS) VBG pH POC VBG pCO2 POC VBG pO2 Mixed VBG HCO3 Sodium Potassium 3.3 L D Chloride 96 L Carbon Dioxide Anion Gap BUN 20 H D Creatinine 2.4 H D Random Glucose 246 H D Calcium 8.2 L Alkaline Phosphatase Creatine Kinase CK-MB (CK-2) Albumin Acetone, Qual Laboratory Results - last 24 hr 08/05/16 08/05/16 08/05/16 11:55 12:00 12:00 WBC 13.9 H RBC 3.30 L Hgb 8.1 L Hct 28.8 L MCV 87.4 MCHC 28.1 L RDW 19.9 H Plt Count 445 H MPV 9.0 Neutrophils % 90.5 H Lymphocytes % 2.8 L D Monocytes % 6.5 Eosinophils % 0.1 D Basophils % 0.1 INR 1.42 H PTT (Actin FS) 35.2 H VBG pH 7.14 L* D POC VBG pCO2 27.9 L D POC VBG pO2 90.4 H D Mixed VBG HCO3 9.2 L* Sodium Potassium Chloride Carbon Dioxide Anion Gap BUN Creatinine Creat Clearance w eGFR POC Glucometer Random Glucose Lactic Acid Calcium Total Bilirubin AST ALT Alkaline Phosphatase Creatine Kinase CK-MB (CK-2) Troponin I Total Protein Albumin Serum , Qual Acetone, Qual Blood Type Antibody Screen 08/05/16 08/05/16 08/05/16 12:00 12:00 12:00 WBC RBC Hgb Hct MCV MCHC RDW Plt Count MPV Neutrophils % Lymphocytes % Monocytes % Eosinophils % Basophils % INR PTT (Actin FS) VBG pH POC VBG pCO2 POC VBG pO2 Mixed VBG HCO3 Sodium 121 L* D Potassium 7.1 H* D Chloride 84 L D Carbon Dioxide 10 L D Anion Gap 27 H BUN 68 H D Creatinine 6.9 H Creat Clearance w eGFR 7.21 POC Glucometer Random Glucose 905 H* D Lactic Acid 1.526 Calcium 8.1 L Total Bilirubin 0.7 D AST 25 D ALT 20 D Alkaline Phosphatase 998 H Creatine Kinase 871 H D CK-MB (CK-2) 7.709 H Troponin I < 0.01 Total Protein 8.0 Albumin 2.8 L Serum , Qual Acetone, Qual Blood Type B POSITIVE Antibody Screen Negative 08/05/16 08/05/16 08/05/16 12:39 12:50 14:12 WBC RBC Hgb Hct MCV MCHC RDW Plt Count MPV Neutrophils % Lymphocytes % Monocytes % Eosinophils % Basophils % INR PTT (Actin FS) VBG pH POC VBG pCO2 POC VBG pO2 Mixed VBG HCO3 Sodium Potassium Chloride Carbon Dioxide Anion Gap BUN Creatinine Creat Clearance w eGFR POC Glucometer > 400 Random Glucose Lactic Acid Calcium Total Bilirubin AST ALT Alkaline Phosphatase Creatine Kinase CK-MB (CK-2) Troponin I Total Protein Albumin Serum , Qual Negative Acetone, Qual Positive moderate 2+ H Blood Type Antibody Screen 08/05/16 08/05/16 08/05/16 15:00 15:17 17:00 WBC RBC Hgb Hct MCV MCHC RDW Plt Count MPV Neutrophils % Lymphocytes % Monocytes % Eosinophils % Basophils % INR PTT (Actin FS) VBG pH POC VBG pCO2 POC VBG pO2 Mixed VBG HCO3 Sodium 135 L D Potassium 4.2 D Chloride 92 L Carbon Dioxide 24 D Anion Gap 19 H BUN 42 H D Creatinine 4.2 H D Creat Clearance w eGFR POC Glucometer > 400 Random Glucose 481 H* D Lactic Acid 1.210 Calcium 7.8 L Total Bilirubin AST ALT Alkaline Phosphatase Creatine Kinase CK-MB (CK-2) Troponin I Total Protein Albumin Serum , Qual Acetone, Qual Blood Type Antibody Screen 08/05/16 08/05/16 08/05/16 18:45 18:47 20:06 WBC RBC Hgb Hct MCV MCHC RDW Plt Count MPV Neutrophils % Lymphocytes % Monocytes % Eosinophils % Basophils % INR PTT (Actin FS) VBG pH POC VBG pCO2 POC VBG pO2 Mixed VBG HCO3 Sodium 137 Potassium 3.3 L D Chloride 96 L Carbon Dioxide 31 D Anion Gap 10 BUN 20 H D Creatinine 2.4 H D Creat Clearance w eGFR POC Glucometer 291.44430 190.42193 Random Glucose 246 H D Lactic Acid Calcium 8.2 L Total Bilirubin AST ALT Alkaline Phosphatase Creatine Kinase CK-MB (CK-2) Troponin I Total Protein Albumin Serum , Qual Acetone, Qual Blood Type Antibody Screen PLAN: INSULIN DRIP Q IHR BGM ONCE ANION GAP RESPONDS TO NORMAL DC DRIP LEVEMIR 15 UNITS DAILY NOVOLOG SLIDING SCALE DIET CONSULT PATIENT SITTER HELP
[2016-08-06] MEDS: INSULIN DETEMIR 100 UNITS/ML MDV SQ SCH ×3 (00:15→22:27)
[2016-08-06] MEDS ORDERED: hydrALAZINE HCL 20 MG/ML VIAL IVPUSH ONE (03:39)
[2016-08-06] MEDS ORDERED: hydrALAZINE HCL 20 MG/ML VIAL ONE (03:41)
[2016-08-06] MEDS: oxyCODONE HCL 5 MG TABLET PO PRN ×3 (03:51→19:16)
[2016-08-06] MEDS: ACETAMINOPHEN 325 MG TABLET (FP) PO PRN ×3 (03:51→19:17)
[2016-08-06] MEDS: GABAPENTIN 100 MG CAPSULE (FP) PO SCH ×3 (06:13→22:16)
[2016-08-06] MEDS: LABETALOL HCL 200 MG TABLET (FP) PO SCH ×3 (06:18→22:16)
[2016-08-06] MEDS: hydrALAZINE HCL 25 MG TABLET (FP) PO SCH ×3 (06:18→22:15)
[2016-08-06] MEDS: cloNIDine HCL 0.1 MG TABLET PO SCH ×3 (06:18→22:16)
[2016-08-06 06:34] LABS: BASOPHIL 0.4 % (0-2.0); EOSINOPHIL 0.6 % (0-4.5); MCH 23.5 pg (25.7-33.7); MCHC 30.7 g/dl (32.0-36.0); MEAN CELL VOLUME 76.4 fl (80-96); MEAN PLT VOLUME 8.6 fl (7.5-11.1); PLATELET COUNT 491 K/MM3 (134-434); RDW 18.2 % (11.6-15.6); WHITE BLOOD COUNT 13.2 K/mm3 (4.0-10.0)
[2016-08-06 07:00] LABS: ALBUMIN 2.5 g/dl (3.4-5.0); COCKROFT - GAULT 24.65; CREATININE 3.4 mg/dL (0.55-1.02); MAGNESIUM 1.8 mg/dL (1.8-2.4); PHOSPHOROUS 5.5 mg/dL (2.5-4.9)
[2016-08-06 07:02] LABS: BILIRUBIN,TOTAL 0.6 mg/dL (0.2-1.0); TOT PROT 7.4 g/dl (6.4-8.2)
[2016-08-06] MEDS: SEVELAMER CARBONATE 800 MG TAB (FP) PO SCH ×3 (08:00→17:45)
--- NOTE | 2016-08-06 09:03 | PN ---
Physical Exam: SUBJECTIVE: Patient seen and examined patient feels better breathing has improved denies nausea, vomiting, chest pain. Got HD yesterday, K in normal range dka resolved started on diabetic diet. ggt elevated, usg pending. OBJECTIVE: Vital Signs Period Temp Pulse Resp BP Sys/Ames Pulse Ox Last 24 Hr 97.4 F-98.5 F 77-89 12-22 127-178/54-106 100-100 GENERAL: Awake, alert, and fully oriented, in no acute distress. HEAD: Normal with no signs of trauma. NECK: Normal range of motion, LUNGS: Breath sounds equal, clear to auscultation bilaterally, crackels decreased HEART:s1s2 n ABDOMEN: Soft, nontender, not distended, normoactive bowel sounds, no guarding, no rebound, no masses. UPPER EXTREMITIES: 2+ pulses, warm, well-perfused. LOWER EXTREMITIES: 2+ pulses, warm, well-perfused. No calf tenderness. right leg has chronic swelling, mild tenderness in right thigh NEUROLOGICAL: Cranial nerves II-XII intact. PSYCHIATRIC: Cooperative. Good eye contact. SKIN: Warm, dry, Laboratory Results - last 24 hr 08/05/16 08/05/16 08/05/16 14:12 15:00 15:17 WBC RBC Hgb Hct MCV MCHC RDW Plt Count MPV Neutrophils % Lymphocytes % Monocytes % Eosinophils % Basophils % Sodium Potassium Chloride Carbon Dioxide Anion Gap BUN Creatinine Creat Clearance w eGFR POC Glucometer > 400 > 400 Random Glucose Hemoglobin A1c % Lactic Acid 1.210 Calcium Phosphorus Magnesium Total Bilirubin GGT AST ALT Alkaline Phosphatase Total Protein Albumin 08/05/16 08/05/16 08/05/16 16:19 17:00 18:45 WBC RBC Hgb Hct MCV MCHC RDW Plt Count MPV Neutrophils % Lymphocytes % Monocytes % Eosinophils % Basophils % Sodium 135 L D 137 Potassium 4.2 D 3.3 L D Chloride 92 L 96 L Carbon Dioxide 24 D 31 D Anion Gap 19 H 10 BUN 42 H D 20 H D Creatinine 4.2 H D 2.4 H D Creat Clearance w eGFR POC Glucometer > 400 Random Glucose 481 H* D 246 H D Hemoglobin A1c % Lactic Acid Calcium 7.8 L 8.2 L Phosphorus Magnesium Total Bilirubin GGT AST ALT Alkaline Phosphatase Total Protein Albumin 08/05/16 08/05/16 08/06/16 18:47 20:06 05:15 WBC 13.2 H RBC 3.26 L Hgb 7.7 L Hct 24.9 L MCV 76.4 L MCHC 30.7 L RDW 18.2 H Plt Count 491 H MPV 8.6 Neutrophils % 78.0 Lymphocytes % 6.9 L D Monocytes % 14.1 H D Eosinophils % 0.6 D Basophils % 0.4 D Sodium Potassium Chloride Carbon Dioxide Anion Gap BUN Creatinine Creat Clearance w eGFR POC Glucometer 291.95877 190.79834 Random Glucose Hemoglobin A1c % Lactic Acid Calcium Phosphorus Magnesium Total Bilirubin GGT AST ALT Alkaline Phosphatase Total Protein Albumin 08/06/16 08/06/16 08/06/16 05:15 05:15 05:15 WBC RBC Hgb Hct MCV MCHC RDW Plt Count MPV Neutrophils % Lymphocytes % Monocytes % Eosinophils % Basophils % Sodium 139 Potassium 4.3 D Chloride 96 L Carbon Dioxide 30 Anion Gap 13 BUN 26 H D Creatinine 3.4 H D Creat Clearance w eGFR 16.33 POC Glucometer Random Glucose 149 H D Hemoglobin A1c % 14.3 H D Lactic Acid Calcium 9.0 Phosphorus 5.5 H D Magnesium 1.8 Total Bilirubin 0.6 GGT 314 H D AST 25 ALT 18 Alkaline Phosphatase 883 H Total Protein 7.4 Albumin 2.5 L Active Medications Generic Name Dose Route Start Last Admin Trade Name Freq PRN Reason Stop Dose Admin Acetaminophen 325 mg 08/05/16 20:53 08/06/16 03:51 Tylenol - PO 325 mg Q6H PRN Administration PAIN LEVEL 6-10 Aspirin 325 mg 08/06/16 10:00 Asa - PO DAILY ROSA MARIA Chlorhexidine Gluconate 1 applic 08/05/16 22:00 08/05/16 21:16 Hibiclens For Decolonization - TP 1 applic HS ROSA MARIA Administration Cinacalcet 60 mg 08/06/16 10:00 Sensipar - PO DAILY ROSA MARIA Clonidine 0.3 mg 08/05/16 14:00 08/06/16 06:18 Catapres - PO 0.3 mg TID ROSA MARIA Administration Gabapentin 100 mg 08/05/16 14:00 08/06/16 06:13 Neurontin - PO 100 mg TID ROSA MARIA Administration Hydralazine HCl 25 mg 08/05/16 14:00 08/06/16 06:18 Apresoline - PO 25 mg TID ROSA MARIA Administration Insulin Aspart 1 vial 08/06/16 11:00 Novolog Vial Sliding Scale - SQ ACHS [facility] Protocol Insulin Detemir 10 units 08/05/16 20:45 08/06/16 00:15 Levemir Vial SQ Not Given BID ROSA MARIA Labetalol HCl 200 mg 08/05/16 14:00 08/06/16 06:18 Normodyne - PO 200 mg TID ROSA MARIA Administration Losartan Potassium 25 mg 08/06/16 10:00 Cozaar - PO DAILY [facility] Mupirocin 1 applic 08/05/16 22:00 08/05/16 21:16 Bactroban Ointment (For Decolonization) - NS 08/10/16 21:59 1 applic BID ROSA MARIA Administration Nifedipine 30 mg 08/06/16 10:00 Procardia Xl - PO DAILY ROSA MARIA Oxycodone HCl 5 mg 08/05/16 20:53 08/06/16 03:51 Roxicodone - PO 5 mg Q6H PRN Administration PAIN LEVEL 6-10 Senna 1 tab 08/06/16 10:00 Senna - PO DAILY [facility] Sevelamer Carbonate 1,600 mg 08/05/16 17:30 08/05/16 16:51 Renvela - PO Not Given TIDCM [facility] ASSESSMENT/PLAN: DKA h/o IDDM/ uncontrolled DM resolved started on levemir 10mg bid and novalog sliding scale monitor blood sugar achs continue with diabetic diet ESRD ( HD M, W, F ) - got HD yesterday -Renal on case -renal diet - monitor electrolytes Pseudohyponatremia (corrected Na is 140) resolved hyperkalemia resolved Chronic Anemia due to ESRD Hb 7.7 monitor haemoglobin HTN continue with clonidine ,, labetalol, procardia, losartan, hydralazine Elevated alk phos, - in last admission close to 1000 - usg in last admission shows enlarged liver, - Elevated alk phos may be from bone (osteo + renal osteodystrophy), may be from cbd, - ggt elevated - ultrasound pending. Constipation -on senna FEN fluid: avoid iv fluid, patient goes in overload electrolyte: follow electrolyte nutrition: Diabetic diet Dispo: transfer med surg Visit type - Emergency Visit Emergency Visit: Yes ED Registration Date: 08/05/16 Care time: The patient presented to the Emergency Department on the above date and was hospitalized for further evaluation of their emergent condition. - New Patient This patient is new to me today: No - Critical Care Critical Care patient: Yes Total Critical Care Time (in minutes): 45 Critical Care Statement: The care of this patient involved high complexity decision making to prevent further life threatening deterioration of the patient 's condition and/or to evalute & treat vital organ system(s) failure or risk of failure.
--- NOTE | 2016-08-06 09:46 | HP ---
Admitting History and Physical - Primary Care Physician PCP: Edna Calero - Admission Chief Complaint: DKA History of Present Illness: ER HISTORY - History of Present Illness Initial Comments: 0-08/05/16 12:18 The patient is a 25-year-old woman with a significant past medical history of anemia, hypertension, deep venous thrombosis, pulmonary embolism (on Coumadin), insulin-dependent diabetes mellitus, end-stage renal disease (on hemodialysis q. M/W/F; received full dialysis on Wednesday without complications), myosistis, osteomylities (right fifth digit surgery) and seizure disorder who was sent from her dialysis center to the emergency department via EMS for further evaluation of generalized weakness. Patient was unable to receive dialysis treatment this morning, as she was complaining of generalized weakness and nausea. She reports she was in her usual state of health yesterday and felt fine when she woke up this morning. She currently reports diffuse generalized abdominal pain with associated nausea and weakness. No vomiting. She also notes that her insulin dosage has changed recently and despite compliance with her insulin, her sugars have been runnyn high at home. No recent fevers, chills. No chest pain, cough, shortness of breath, headache, dizziness, palpitations, syncope. No urinary complaints. Allergies: No Known Drug Allergies Past Surgical History: Myxoma removed 2013. Right foot ulcer surgery. Left upper extremity fistula. Social History: Unknown if ever smoked. No ETOH and recreational drug use. Primary Care Physician: Dr. Edna Alvarado [phone] [employer]: Dr. Nathan Vo [phone] [employer] Management: Dr. Corey Rose [phone] Pt examined in ICU Was on insulin drip for DKA. Discontinued early AM . She was admitted here recently for similar reason. 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 Was checking her BGM-- showed as High. Feeling weak and tired, she did not miss her dialysis. Known to be non compliant with diet control and fluids. Today feeling better Denies abd pain Has constant pain in right leg-- chronic pain -- multiple work up has been done for her leg pain History Source: Patient Limitations to Obtaining History: No Limitations - Past Medical History Cardiovascular: Yes: CHF, HTN, Other (thrombus in heart per echo 11/2013; ? subclavian vein thromboses s/p dialysis catheters in the past) Pulmonary: Yes: Pulmonary Embolus Renal/: Yes: Renal Failure, Hemodialysis ...LMP: 10/02/15 ...: No Heme/Onc: Yes: Other (atrial myxoma s/p surgical removal. Also has a history of PE ) Infectious Disease: Yes: MRSA (history of bacteremia, recent mrsa foot abscess) Endocrine: Yes: Diabetes Mellitus (type 1 on insulin pump) - Past Surgical History Past Surgical History: Yes: AV Fistula/Graft (Right arm) - Smoking History Smoking history: Unknown if ever smoked Have you smoked in the past 12 months: No Aproximately how many cigarettes per day: 10 - Alcohol/Substance Use Hx Alcohol Use: No History of Substance Use: reports: None - Social History ADL: Independent Occupation: unemployed History of Recent Travel: No Home Medications - Allergies Allergies/Adverse Reactions: Allergies Allergy/AdvReac Type Severity Reaction Status Date / Time No Known Drug Allergies Allergy Verified 08/05/16 12:42 - Home Medications Home Medications: Ambulatory Orders Oxycodone HCl/Acetaminophen [Percocet 5-325 mg Tablet] 1 tab PO Q6H PRN #10 tablet MDD 4 11/11/15 Gabapentin 100 mg PO TID 03/11/16 Mupirocin Cream [Bactroban 2% Cream -] 1 applic TP BID #1 tube 05/07/16 Clonidine HCl [Catapres -] 0.3 mg PO TID #90 tablet 07/14/16 Hydralazine HCl [Apresoline -] 25 mg PO TID #60 tablet 07/14/16 Insulin (Levemir) [Levemir Vial] 25 units SQ DAILY@0700 #30 ml 07/14/16 Labetalol HCl [Normodyne -] 200 mg PO TID #90 tablet 07/14/16 Losartan Potassium [Cozaar -] 25 mg PO DAILY #30 tablet 07/14/16 Sevelamer Carbonate [Renvela -] 1,600 mg PO TIDCM #60 tab 07/14/16 Aspirin [ASA -] 325 mg PO DAILY 08/05/16 Cinacalcet HCl [Sensipar] 60 mg PO DAILY 08/05/16 Diphenhydramine [Benadryl -] 50 mg PO HS 08/05/16 Insulin Lispro [Humalog Kwikpen U-100] 0 unit SQ ASDIR 08/05/16 Nifedipine [Procardia Xl] 30 mg PO TID 08/05/16 Sennosides [Senna] 8.6 mg PO DAILY 08/05/16 Family Disease History - Family Disease History Family Disease History: Diabetes: Grandparent (HTN), Heart Disease: Grandparent , Other: Father (unknown), Mother (HTN) Review of Systems - Review of Systems Constitutional: reports: Weakness. denies: Chills, Fever, Lethargy, Malaise Physical Examination Vital Signs: Vital Signs Temperature 98.2 F 08/06/16 08:00 Pulse Rate 85 08/06/16 08:00 Respiratory Rate 14 08/06/16 08:00 Blood Pressure 127/73 08/06/16 08:00 O2 Sat by Pulse Oximetry (%) 100 08/05/16 21:00 Constitutional: Yes: No Distress, Calm Cardiovascular: Yes: Regular Rate and Rhythm Respiratory: Yes: Diminished Gastrointestinal: Yes: Normal Bowel Sounds, Soft, Abdomen, Obese. No: Distention, Tenderness Edema: Yes Edema: RLE: 1+ Neurological: Yes: Alert, Oriented Labs: CBC, BMP 08/06/16 05:15 08/06/16 05:15 Imaging - Results Chest X-ray: Image Reviewed (clear) EKG: Image Reviewed (Sinus) Problem List - Problems (1) DKA, type 1 Code(s): E10.10 - TYPE 1 DIABETES MELLITUS WITH KETOACIDOSIS WITHOUT COMA Qualifiers: Diabetes mellitus complication detail: without coma Qualified Code(s): E10.10 - Type 1 diabetes mellitus with ketoacidosis without coma (2) Diabetes mellitus, insulin dependent (IDDM), uncontrolled Code(s): E10.65 - TYPE 1 DIABETES MELLITUS WITH HYPERGLYCEMIA Qualifiers: Diabetes mellitus complication status: with unspecified complications Qualified Code(s): E10.8 - Type 1 diabetes mellitus with unspecified complications; E10.65 - Type 1 diabetes mellitus with hyperglycemia (3) ESRD (end stage renal disease) on dialysis Code(s): N18.6 - END STAGE RENAL DISEASE Z99.2 - DEPENDENCE ON RENAL DIALYSIS (4) HTN (hypertension) Code(s): I10 - ESSENTIAL (PRIMARY) HYPERTENSION Qualifiers: Hypertension type: essential hypertension Qualified Code(s): I10 - Essential (primary) hypertension (5) Hyperkalemia Code(s): E87.5 - HYPERKALEMIA Assessment/Plan PLAN Off Insulin drip continue with Levemir Endocrinology and Renal eval noted and appreciated received dialysis yesterday Dietitian eval Noted decreased H/HCT-- may need Epogen HD per Renal DVT prophylaxis OOB ok to transfer to floor spoke with nurse time spent 30 min
[2016-08-06] MEDS: MUPIROCIN 2% TOPICAL OINTMENT FOR DECOLONIZATION NS SCH ×2 (09:55→22:26)
[2016-08-06] MEDS ORDERED: ASPIRIN 325 MG TABLET PO SCH (10:00)
[2016-08-06] MEDS ORDERED: CINACALCET HCL 30 MG TAB (FP) PO SCH (10:00)
[2016-08-06] MEDS ORDERED: NIFEdipine E.R. 30 MG TABLET (FP) PO SCH (10:00)
[2016-08-06] MEDS ORDERED: SENNOSIDES 8.6MG TABLET (FP) PO SCH (10:00)
[2016-08-06] MEDS ORDERED: LOSARTAN POTASSIUM 25 MG TABLET PO SCH (10:00)
[2016-08-06] MEDS: INSULIN SLIDING SCALE (NOVOLOG) 1 VIAL SQ SCH ×3 (11:11→22:16)
--- NOTE | 2016-08-06 12:07 | PN ---
Progress Note, Physician Chief Complaint: The patient is in ICU. Reports feeling better. C/o pain in the right thigh. The right thigh is quite swollen. - Current Medication List Current Medications: Active Medications Acetaminophen (Tylenol -) 325 mg PO Q6H PRN PRN Reason: PAIN LEVEL 6-10 Last Admin: 08/06/16 09:58 Dose: 325 mg Aspirin (Asa -) 325 mg PO DAILY [facility] Last Admin: 08/06/16 09:41 Dose: 325 mg Chlorhexidine Gluconate (Hibiclens For Decolonization -) 1 applic TP HS [facility] Last Admin: 08/05/16 21:16 Dose: 1 applic Cinacalcet (Sensipar -) 60 mg PO DAILY [facility] Last Admin: 08/06/16 09:41 Dose: 60 mg Clonidine (Catapres -) 0.3 mg PO TID [facility] Last Admin: 08/06/16 06:18 Dose: 0.3 mg Gabapentin (Neurontin -) 100 mg PO TID [facility] Last Admin: 08/06/16 06:13 Dose: 100 mg Hydralazine HCl (Apresoline -) 25 mg PO TID [facility] Last Admin: 08/06/16 06:18 Dose: 25 mg Insulin Aspart (Novolog Vial Sliding Scale -) 1 vial SQ ACHS [facility] PRN Reason: Protocol Last Admin: 08/06/16 11:11 Dose: 4 units Insulin Detemir (Levemir Vial) 10 units SQ BID [facility] Last Admin: 08/06/16 09:23 Dose: 10 units Labetalol HCl (Normodyne -) 200 mg PO TID [facility] Last Admin: 08/06/16 06:18 Dose: 200 mg Losartan Potassium (Cozaar -) 25 mg PO DAILY [facility] Last Admin: 08/06/16 09:41 Dose: 25 mg Mupirocin (Bactroban Ointment (For Decolonization) -) 1 applic NS BID [facility] Stop: 08/10/16 21:59 Last Admin: 08/06/16 09:55 Dose: 1 applic Nifedipine (Procardia Xl -) 30 mg PO DAILY [facility] Last Admin: 08/06/16 09:41 Dose: 30 mg Oxycodone HCl (Roxicodone -) 10 mg PO Q6H PRN PRN Reason: PAIN LEVEL 6-10 Last Admin: 08/06/16 09:55 Dose: 10 mg Senna (Senna -) 1 tab PO DAILY [facility] Last Admin: 08/06/16 09:41 Dose: 1 tab Sevelamer Carbonate (Renvela -) 1,600 mg PO TIDCM [facility] Last Admin: 08/06/16 08:00 Dose: 1,600 mg - Objective Vital Signs: Vital Signs Temperature 97.8 F 08/06/16 10:00 Pulse Rate 85 08/06/16 10:00 Respiratory Rate 14 08/06/16 10:00 Blood Pressure 120/79 08/06/16 10:00 O2 Sat by Pulse Oximetry (%) 97 08/06/16 08:00 Constitutional: Yes: Mild Distress (pain in the thigh) Eyes: Yes: WNL HENT: Yes: Atraumatic Neck: Yes: Supple Cardiovascular: Yes: Regular Rate and Rhythm, S1, S2 Respiratory: Yes: Regular, CTA Bilaterally Gastrointestinal: Yes: Normal Bowel Sounds Musculoskeletal: Yes: Back Pain, Muscle Pain Extremities: Yes: Calf Tenderness (right), Other (right thigh is swollen and tender) Labs: CBC, BMP 08/06/16 05:15 08/06/16 05:15 INR, PTT INR 1.42 (0.82-1.09) H 08/05/16 12:00 Problem List - Problems (1) DKA, type 1 Code(s): E10.10 - TYPE 1 DIABETES MELLITUS WITH KETOACIDOSIS WITHOUT COMA Qualifiers: Diabetes mellitus complication detail: without coma Qualified Code(s): E10.10 - Type 1 diabetes mellitus with ketoacidosis without coma (2) ESRD (end stage renal disease) on dialysis Code(s): N18.6 - END STAGE RENAL DISEASE Z99.2 - DEPENDENCE ON RENAL DIALYSIS (3) Diabetic ketoacidosis with coma associated with type 1 diabetes mellitus Code(s): E10.11 - TYPE 1 DIABETES MELLITUS WITH KETOACIDOSIS WITH COMA (4) Fluid overload Code(s): E87.70 - FLUID OVERLOAD, UNSPECIFIED Qualifiers: Hypervolemia type: unspecified Qualified Code(s): E87.70 - Fluid overload, unspecified (5) Dialysis patient Code(s): Z99.2 - DEPENDENCE ON RENAL DIALYSIS (6) HTN (hypertension) Code(s): I10 - ESSENTIAL (PRIMARY) HYPERTENSION Qualifiers: Hypertension type: essential hypertension Qualified Code(s): I10 - Essential (primary) hypertension (7) Swelling of right lower extremity Code(s): M79.89 - OTHER SPECIFIED SOFT TISSUE DISORDERS Assessment/Plan 25 y/o AA female admitted with Hyperglycemia , DKA and the finding of swollen right lower extremity, especially the thigh. The patient has ESRD and had HD yesterday. Next dialysis scheduled for tomorrow. Will get Doppler of the right thigh. R/o DVT. Reviewed with the ICU attending.
--- NOTE | 2016-08-06 12:20 | PN ---
Teaching Attending Note Name of Resident: Krishna Acosta ATTENDING PHYSICIAN STATEMENT I saw and evaluated the patient. I reviewed the resident's note and discussed the case with the resident. I agree with the resident's findings and plan as documented. SUBJECTIVE: Pt seen and examined in the ICU. Feels better today. No shortness of breath or chest pain. Off insulin gtt. OBJECTIVE: Last Vital Signs Temp Pulse Resp BP Pulse Ox 97.5 F L 85 12 121/72 97 08/06/16 12:00 08/06/16 12:00 08/06/16 12:00 08/06/16 12:00 08/06/16 08:00 Intake & Output 08/03/16 08/04/16 08/05/16 08/06/16 23:59 23:59 23:59 23:59 Intake Total 538 490 Balance 538 490 Weight 144 lb 13.499 oz 137 lb 11.2 oz Gen: NAD at rest Heart: RRR Lung: decreased breath sounds at the bases Abd: soft, nontender Ext: + edema CBC, BMP 08/06/16 05:15 08/06/16 05:15 Active Medications Acetaminophen (Tylenol -) 325 mg PO Q6H PRN PRN Reason: PAIN LEVEL 6-10 Last Admin: 08/06/16 09:58 Dose: 325 mg Aspirin (Asa -) 325 mg PO DAILY [facility] Last Admin: 08/06/16 09:41 Dose: 325 mg Chlorhexidine Gluconate (Hibiclens For Decolonization -) 1 applic TP HS [facility] Last Admin: 08/05/16 21:16 Dose: 1 applic Cinacalcet (Sensipar -) 60 mg PO DAILY [facility] Last Admin: 08/06/16 09:41 Dose: 60 mg Clonidine (Catapres -) 0.3 mg PO TID [facility] Last Admin: 08/06/16 06:18 Dose: 0.3 mg Gabapentin (Neurontin -) 100 mg PO TID [facility] Last Admin: 08/06/16 06:13 Dose: 100 mg Hydralazine HCl (Apresoline -) 25 mg PO TID [facility] Last Admin: 08/06/16 06:18 Dose: 25 mg Insulin Aspart (Novolog Vial Sliding Scale -) 1 vial SQ ACHS [facility] PRN Reason: Protocol Last Admin: 08/06/16 11:11 Dose: 4 units Insulin Detemir (Levemir Vial) 10 units SQ BID [facility] Last Admin: 08/06/16 09:23 Dose: 10 units Labetalol HCl (Normodyne -) 200 mg PO TID [facility] Last Admin: 08/06/16 06:18 Dose: 200 mg Losartan Potassium (Cozaar -) 25 mg PO DAILY [facility] Last Admin: 08/06/16 09:41 Dose: 25 mg Mupirocin (Bactroban Ointment (For Decolonization) -) 1 applic NS BID [facility] Stop: 08/10/16 21:59 Last Admin: 08/06/16 09:55 Dose: 1 applic Nifedipine (Procardia Xl -) 30 mg PO DAILY [facility] Last Admin: 08/06/16 09:41 Dose: 30 mg Oxycodone HCl (Roxicodone -) 10 mg PO Q6H PRN PRN Reason: PAIN LEVEL 6-10 Last Admin: 08/06/16 09:55 Dose: 10 mg Senna (Senna -) 1 tab PO DAILY [facility] Last Admin: 08/06/16 09:41 Dose: 1 tab Sevelamer Carbonate (Renvela -) 1,600 mg PO TIDCM [facility] Last Admin: 08/06/16 12:08 Dose: 1,600 mg ASSESSMENT AND PLAN: Diabetic Ketoacidosis resolving ESRD on HD Diabetic Neuropathy Anemia Elevated Alk Phos HTN Noncompliance - glucose control - monitor BGM - HD per renal - BP control - O2 as needed - DVT prophylaxis - can monitor on floor
[2016-08-06] MEDS ORDERED: OXYCODONE/APAP 5/325MG COMBO TABLET PO ONE (13:46)
[2016-08-06] MEDS ORDERED: ACETAMINOPHEN 325 MG TABLET (FP) PO ONE (14:15)
[2016-08-06] MEDS ORDERED: oxyCODONE HCL 5 MG TABLET PO ONE (14:15)
[2016-08-06] MEDS ORDERED: RANITIDINE HCL 150 MG TABLET (FP) PO ONE (16:47)
[2016-08-06] MEDS ORDERED: HYDROmorphone HCL CARPU-JECT 1 MG/1 ML DISP.SYRIN IVPUSH ONE (21:59)
[2016-08-06] MEDS: CHLORHEXIDINE GLUCONATE 4% CLEANSER FOR DECOLONIZATION TP SCH (22:27)
[2016-08-07] MEDS: ACETAMINOPHEN 325 MG TABLET (FP) PO PRN ×4 (04:17→22:55)
[2016-08-07] MEDS: oxyCODONE HCL 5 MG TABLET PO PRN ×4 (04:18→22:52)
[2016-08-07] MEDS: LABETALOL HCL 200 MG TABLET (FP) PO SCH ×3 (06:25→22:46)
[2016-08-07] MEDS: GABAPENTIN 100 MG CAPSULE (FP) PO SCH ×3 (06:25→22:45)
[2016-08-07] MEDS: cloNIDine HCL 0.1 MG TABLET PO SCH ×3 (06:25→22:45)
[2016-08-07] MEDS: hydrALAZINE HCL 25 MG TABLET (FP) PO SCH ×3 (06:25→22:45)
[2016-08-07] MEDS: INSULIN SLIDING SCALE (NOVOLOG) 1 VIAL SQ SCH ×4 (06:26→22:48)
[2016-08-07 06:28] LABS: BASOPHIL 0.3 % (0-2.0); EOSINOPHIL 0.8 % (0-4.5); MCH 23.6 pg (25.7-33.7); MCHC 30.4 g/dl (32.0-36.0); MEAN CELL VOLUME 77.8 fl (80-96); MEAN PLT VOLUME 8.3 fl (7.5-11.1); NEUTROPHILS 76.1 % (42.8-82.8); PLATELET COUNT 444 K/MM3 (134-434); RDW 18.4 % (11.6-15.6); WHITE BLOOD COUNT 10.4 K/mm3 (4.0-10.0)
[2016-08-07 06:55] LABS: CALCIUM 7.6 mg/dL (8.5-10.1); COCKROFT - GAULT 17.085; CREATININE 4.9 mg/dL (0.55-1.02)
[2016-08-07] MEDS: SEVELAMER CARBONATE 800 MG TAB (FP) PO SCH ×3 (08:00→16:49)
[2016-08-07] MEDS ORDERED: EPOETIN ALFA 20,000 UNIT/1 ML VIAL IVPUSH ONE (08:00)
[2016-08-07] MEDS: MUPIROCIN 2% TOPICAL OINTMENT FOR DECOLONIZATION NS SCH (09:10)
[2016-08-07] MEDS: INSULIN DETEMIR 100 UNITS/ML MDV SQ SCH ×2 (10:15→22:46)
[2016-08-07] MEDS ORDERED: morphine CARPU-JECT 2 MG/1 ML DISP.SYRIN IVPUSH ONE (11:05)
[2016-08-07] MEDS ORDERED: HEMOQUE TEST 1 EACH EACH ONE (11:35)
[2016-08-07] MEDS: ASPIRIN 325 MG TABLET PO SCH (11:43)
[2016-08-07] MEDS: NIFEdipine E.R. 30 MG TABLET (FP) PO SCH (11:44)
[2016-08-07] MEDS: LOSARTAN POTASSIUM 25 MG TABLET PO SCH (11:44)
[2016-08-07] MEDS: CINACALCET HCL 30 MG TAB (FP) PO SCH (11:45)
[2016-08-07] MEDS: SENNOSIDES 8.6MG TABLET (FP) PO SCH (11:47)
--- NOTE | 2016-08-07 12:32 | PN ---
Teaching Attending Note Name of Resident: Chanell Weiss ATTENDING PHYSICIAN STATEMENT I saw and evaluated the patient. I reviewed the resident's note and discussed the case with the resident. I agree with the resident's findings and plan as documented. SUBJECTIVE: Pt seen and examined in the ICU. c/o right leg pain which she gets when she is volume overloaded. Currently on HD attempting to removal 4.5 kg. Denies shortness of breath or chest pain. OBJECTIVE: Last Vital Signs Temp Pulse Resp BP Pulse Ox 97.2 F L 96 H 18 179/92 97 08/07/16 10:00 08/07/16 12:02 08/07/16 12:02 08/07/16 12:02 08/07/16 08:00 Intake & Output 08/04/16 08/05/16 08/06/16 08/07/16 23:59 23:59 23:59 23:59 Intake Total 538 590 250 Balance 538 590 250 Weight 144 lb 13.499 oz 137 lb 11.2 oz 142 lb 12.8 oz Gen: NAD at rest Heart: RRR Lung: decreased breath sounds at the bases Abd: soft, nontender Ext: + edema CBC, BMP 08/07/16 05:10 08/07/16 05:10 Active Medications Acetaminophen (Tylenol -) 325 mg PO Q6H PRN PRN Reason: PAIN LEVEL 6-10 Last Admin: 08/07/16 10:24 Dose: 325 mg Aspirin (Asa -) 325 mg PO DAILY [facility] Last Admin: 08/07/16 11:43 Dose: 325 mg Chlorhexidine Gluconate (Hibiclens For Decolonization -) 1 applic TP HS [facility] Last Admin: 08/06/16 22:27 Dose: 1 applic Cinacalcet (Sensipar -) 60 mg PO DAILY [facility] Last Admin: 08/07/16 11:45 Dose: 60 mg Clonidine (Catapres -) 0.3 mg PO TID [facility] Last Admin: 08/07/16 06:25 Dose: 0.3 mg Gabapentin (Neurontin -) 100 mg PO TID [facility] Last Admin: 08/07/16 06:25 Dose: 100 mg Hydralazine HCl (Apresoline -) 25 mg PO TID [facility] Last Admin: 08/07/16 06:25 Dose: 25 mg Insulin Aspart (Novolog Vial Sliding Scale -) 1 vial SQ ACHS [facility] PRN Reason: Protocol Last Admin: 08/07/16 11:43 Dose: 4 units Insulin Detemir (Levemir Vial) 10 units SQ BID [facility] Last Admin: 08/07/16 10:15 Dose: 10 units Labetalol HCl (Normodyne -) 200 mg PO TID [facility] Last Admin: 08/07/16 06:25 Dose: 200 mg Losartan Potassium (Cozaar -) 25 mg PO DAILY [facility] Last Admin: 08/07/16 11:44 Dose: 25 mg Mupirocin (Bactroban Ointment (For Decolonization) -) 1 applic NS BID [facility] Stop: 08/10/16 21:59 Last Admin: 08/07/16 09:10 Dose: Not Given Nifedipine (Procardia Xl -) 30 mg PO DAILY [facility] Last Admin: 08/07/16 11:44 Dose: 30 mg Oxycodone HCl (Roxicodone -) 10 mg PO Q6H PRN PRN Reason: PAIN LEVEL 6-10 Last Admin: 08/07/16 10:25 Dose: 10 mg Senna (Senna -) 1 tab PO DAILY [facility] Last Admin: 08/07/16 11:47 Dose: 1 tab Sevelamer Carbonate (Renvela -) 1,600 mg PO TIDCM [facility] Last Admin: 08/07/16 08:00 Dose: 1,600 mg ASSESSMENT AND PLAN: Diabetic Ketoacidosis resolved ESRD on HD Diabetic Neuropathy Anemia Elevated Alk Phos HTN Noncompliance - glucose control with levemir, novolog - monitor BGM - HD per renal with ultrafiltration - BP control - pain control - O2 as needed - DVT prophylaxis - can monitor on floor
--- NOTE | 2016-08-07 14:05 | PN ---
Progress Note (short form) - Note Progress Note: s/p hemodialysis right thigh pain and swelling doppler - no dvt ill-defined masses anemia - transfused Current Medications Acetaminophen (Tylenol -) 325 mg PO Q6H PRN PRN Reason: PAIN LEVEL 6-10 Last Admin: 08/07/16 10:24 Dose: 325 mg Aspirin (Asa -) 325 mg PO DAILY [facility] Last Admin: 08/07/16 11:43 Dose: 325 mg Chlorhexidine Gluconate (Hibiclens For Decolonization -) 1 applic TP HS [facility] Last Admin: 08/06/16 22:27 Dose: 1 applic Cinacalcet (Sensipar -) 60 mg PO DAILY [facility] Last Admin: 08/07/16 11:45 Dose: 60 mg Clonidine (Catapres -) 0.3 mg PO TID [facility] Last Admin: 08/07/16 13:49 Dose: 0.3 mg Gabapentin (Neurontin -) 100 mg PO TID [facility] Last Admin: 08/07/16 13:50 Dose: 100 mg Hydralazine HCl (Apresoline -) 25 mg PO TID [facility] Last Admin: 08/07/16 13:50 Dose: 25 mg Insulin Aspart (Novolog Vial Sliding Scale -) 1 vial SQ ACHS [facility] PRN Reason: Protocol Last Admin: 08/07/16 11:43 Dose: 4 units Insulin Detemir (Levemir Vial) 10 units SQ BID [facility] Last Admin: 08/07/16 10:15 Dose: 10 units Labetalol HCl (Normodyne -) 200 mg PO TID [facility] Last Admin: 08/07/16 13:50 Dose: 200 mg Losartan Potassium (Cozaar -) 25 mg PO DAILY [facility] Last Admin: 08/07/16 11:44 Dose: 25 mg Mupirocin (Bactroban Ointment (For Decolonization) -) 1 applic NS BID [facility] Stop: 08/10/16 21:59 Last Admin: 08/07/16 09:10 Dose: Not Given Nifedipine (Procardia Xl -) 30 mg PO DAILY [facility] Last Admin: 08/07/16 11:44 Dose: 30 mg Oxycodone HCl (Roxicodone -) 10 mg PO Q6H PRN PRN Reason: PAIN LEVEL 6-10 Last Admin: 08/07/16 10:25 Dose: 10 mg Senna (Senna -) 1 tab PO DAILY [facility] Last Admin: 08/07/16 11:47 Dose: 1 tab Sevelamer Carbonate (Renvela -) 1,600 mg PO TIDCM [facility] Last Admin: 08/07/16 12:54 Dose: 1,600 mg Vital Signs Temperature 97.0 F L 08/07/16 12:00 Pulse Rate 96 H 08/07/16 12:02 Respiratory Rate 18 08/07/16 12:02 Blood Pressure 179/92 08/07/16 12:02 O2 Sat by Pulse Oximetry (%) 97 08/07/16 08:00 lungs clear heart reg rate and rhythm abd soft nontender ext swelling and tender areas of the right thigh will order ct scan
--- NOTE | 2016-08-07 14:28 | PN ---
Progress Note (short form) - Note Progress Note: patient seen and examined chart reviewed awake and comfortable No distress complains of right thigh pain--Chronic No new issues Vital Signs Temp 98.3 F 08/07/16 14:00 Pulse 94 H 08/07/16 14:00 Resp 18 08/07/16 14:00 BP 148/83 08/07/16 14:00 Pulse Ox 97 08/07/16 08:00 Intake & Output 08/06/16 08/07/16 08/07/16 23:59 11:59 23:59 Intake Total 350 250 120 Balance 350 250 120 Weight 142 lb 12.8 oz Intake: Oral 350 250 120 Other: Voiding Method Toilet Weight Measurement Method Built in [facility] Active Medications Acetaminophen (Tylenol -) 325 mg PO Q6H PRN PRN Reason: PAIN LEVEL 6-10 Last Admin: 08/07/16 10:24 Dose: 325 mg Aspirin (Asa -) 325 mg PO DAILY [facility] Last Admin: 08/07/16 11:43 Dose: 325 mg Chlorhexidine Gluconate (Hibiclens For Decolonization -) 1 applic TP HS [facility] Last Admin: 08/06/16 22:27 Dose: 1 applic Cinacalcet (Sensipar -) 60 mg PO DAILY [facility] Last Admin: 08/07/16 11:45 Dose: 60 mg Clonidine (Catapres -) 0.3 mg PO TID [facility] Last Admin: 08/07/16 13:49 Dose: 0.3 mg Gabapentin (Neurontin -) 100 mg PO TID [facility] Last Admin: 08/07/16 13:50 Dose: 100 mg Hydralazine HCl (Apresoline -) 25 mg PO TID [facility] Last Admin: 08/07/16 13:50 Dose: 25 mg Insulin Aspart (Novolog Vial Sliding Scale -) 1 vial SQ ACHS [facility] PRN Reason: Protocol Last Admin: 08/07/16 11:43 Dose: 4 units Insulin Detemir (Levemir Vial) 10 units SQ BID [facility] Last Admin: 08/07/16 10:15 Dose: 10 units Labetalol HCl (Normodyne -) 200 mg PO TID [facility] Last Admin: 08/07/16 13:50 Dose: 200 mg Losartan Potassium (Cozaar -) 25 mg PO DAILY [facility] Last Admin: 08/07/16 11:44 Dose: 25 mg Mupirocin (Bactroban Ointment (For Decolonization) -) 1 applic NS BID [facility] Stop: 08/10/16 21:59 Last Admin: 08/07/16 09:10 Dose: Not Given Nifedipine (Procardia Xl -) 30 mg PO DAILY [facility] Last Admin: 08/07/16 11:44 Dose: 30 mg Oxycodone HCl (Roxicodone -) 10 mg PO Q6H PRN PRN Reason: PAIN LEVEL 6-10 Last Admin: 08/07/16 10:25 Dose: 10 mg Senna (Senna -) 1 tab PO DAILY [facility] Last Admin: 08/07/16 11:47 Dose: 1 tab Sevelamer Carbonate (Renvela -) 1,600 mg PO TIDCM [facility] Last Admin: 08/07/16 12:54 Dose: 1,600 mg CBC, BMP 08/07/16 05:10 08/07/16 05:10 - Objective Constitutional: Yes: No distress Eyes: Yes: WNL HEENT: Yes: within normal limit Neck: Yes: Supple/ Cardiovascular: Yes: Regular Rate and Rhythm, S1, S2 Respiratory: Yes: Regular, CTA Bilaterally Gastrointestinal: Yes: Normal Bowel Sounds Extremities: Yes: right thigh swelling present Problem List - Problems (1) DKA, type 1 Code(s): E10.10 - TYPE 1 DIABETES MELLITUS WITH KETOACIDOSIS WITHOUT COMA Qualifiers: Diabetes mellitus complication detail: without coma Qualified Code(s): E10.10 - Type 1 diabetes mellitus with ketoacidosis without coma (2) ESRD (end stage renal disease) on dialysis Code(s): N18.6 - END STAGE RENAL DISEASE Z99.2 - DEPENDENCE ON RENAL DIALYSIS (3) Diabetic ketoacidosis with coma associated with type 1 diabetes mellitus Code(s): E10.11 - TYPE 1 DIABETES MELLITUS WITH KETOACIDOSIS WITH COMA (4) Fluid overload Code(s): E87.70 - FLUID OVERLOAD, UNSPECIFIED Qualifiers: Hypervolemia type: unspecified Qualified Code(s): E87.70 - Fluid overload, unspecified (5) Dialysis patient Code(s): Z99.2 - DEPENDENCE ON RENAL DIALYSIS (6) HTN (hypertension) Code(s): I10 - ESSENTIAL (PRIMARY) HYPERTENSION Qualifiers: Hypertension type: essential hypertension Qualified Code(s): I10 - Essential (primary) hypertension (7) Swelling of right lower extremity Code(s): M79.89 - OTHER SPECIFIED SOFT TISSUE DISORDERS Assessment/Plan clinically better DKA resolved Ultrasound --negative for DVT--but shows-complex masses? CT of right lower extremity Ordered Continue other medications We will follow transfer to floor
--- NOTE | 2016-08-07 15:23 | PN ---
Physical Exam: SUBJECTIVE: Patient seen and examined. The pt is complaining of right leg pain. She states that the pain is present for long time, not changed today. On overnight events. OBJECTIVE: Vital Signs Period Temp Pulse Resp BP Sys/Ames Pulse Ox Last 24 Hr 97.0 F-99.3 F 79-96 12-20 113-179/62-96 97-97 GENERAL: The patient is awake, alert, and fully oriented, in no acute distress. HEAD: Normal with no signs of trauma. EYES: PERRL, sclera anicteric, conjunctiva clear. No ptosis. ENT: Ears normal, nares patent, oropharynx clear without exudates, moist mucous membranes. NECK: Trachea midline, full range of motion, supple. LUNGS: Breath sounds equal, clear to auscultation bilaterally, no wheezes, no crackles, no accessory muscle use. HEART: Regular rate and rhythm, S1, S2 without murmur, rub or gallop. ABDOMEN: Soft, nontender, nondistended, normoactive bowel sounds, no guarding, no rebound, no hepatosplenomegaly, no masses. EXTREMITIES: no edema, tenderness to palpation in RUE. NEUROLOGICAL: No facial asymmetry. Normal speech, gait not observed. PSYCH: Normal mood, normal affect. SKIN: Warm, dry, normal turgor, no rashes. Laboratory Results - last 24 hr 08/06/16 08/06/16 08/07/16 16:29 21:42 05:10 WBC 10.4 H RBC 3.17 L Hgb 7.5 L Hct 24.6 L MCV 77.8 L MCHC 30.4 L RDW 18.4 H Plt Count 444 H MPV 8.3 Neutrophils % 76.1 Lymphocytes % 7.5 L Monocytes % 15.3 H Eosinophils % 0.8 Basophils % 0.3 Sodium Potassium Chloride Carbon Dioxide Anion Gap BUN Creatinine POC Glucometer 260.75275 229.31634 Random Glucose Calcium 08/07/16 08/07/16 05:10 06:22 WBC RBC Hgb Hct MCV MCHC RDW Plt Count MPV Neutrophils % Lymphocytes % Monocytes % Eosinophils % Basophils % Sodium 137 Potassium 4.7 Chloride 95 L Carbon Dioxide 27 Anion Gap 15 BUN 39 H D Creatinine 4.9 H D POC Glucometer 134.79472 Random Glucose 97 D Calcium 7.6 L Active Medications Generic Name Dose Route Start Last Admin Trade Name Freq PRN Reason Stop Dose Admin Acetaminophen 325 mg 08/06/16 18:14 08/07/16 10:24 Tylenol - PO 325 mg Q6H PRN Administration PAIN LEVEL 6-10 Aspirin 325 mg 08/07/16 10:00 08/07/16 11:43 Asa - PO 325 mg DAILY [facility] Administration Chlorhexidine Gluconate 1 applic 08/06/16 22:00 08/06/16 22:27 Hibiclens For Decolonization - TP 1 applic HS [facility] Administration Cinacalcet 60 mg 08/07/16 10:00 08/07/16 11:45 Sensipar - PO 60 mg DAILY [facility] Administration Clonidine 0.3 mg 08/06/16 22:00 08/07/16 13:49 Catapres - PO 0.3 mg TID [facility] Administration Gabapentin 100 mg 08/06/16 22:00 08/07/16 13:50 Neurontin - PO 100 mg TID [facility] Administration Hydralazine HCl 25 mg 08/06/16 22:00 08/07/16 13:50 Apresoline - PO 25 mg TID [facility] Administration Insulin Aspart 1 vial 08/06/16 22:00 08/07/16 11:43 Novolog Vial Sliding Scale - SQ 4 units ACHS [facility] Administration Protocol Insulin Detemir 10 units 08/06/16 22:00 08/07/16 10:15 Levemir Vial SQ 10 units BID [facility] Administration Labetalol HCl 200 mg 08/06/16 22:00 08/07/16 13:50 Normodyne - PO 200 mg TID [facility] Administration Losartan Potassium 25 mg 08/07/16 10:00 08/07/16 11:44 Cozaar - PO 25 mg DAILY [facility] Administration Mupirocin 1 applic 08/06/16 22:00 08/07/16 09:10 Bactroban Ointment (For Decolonization) - NS 08/10/16 21:59 Not Given BID [facility] Nifedipine 30 mg 08/07/16 10:00 08/07/16 11:44 Procardia Xl - PO 30 mg DAILY [facility] Administration Oxycodone HCl 10 mg 08/06/16 09:46 08/07/16 10:25 Roxicodone - PO 10 mg Q6H PRN Administration PAIN LEVEL 6-10 Senna 1 tab 08/07/16 10:00 08/07/16 11:47 Senna - PO 1 tab DAILY [facility] Administration Sevelamer Carbonate 1,600 mg 08/07/16 08:00 08/07/16 12:54 Renvela - PO 1,600 mg TIDCM [facility] Administration Assessment and plan: The patient is a 25-year-old woman with a significant past medical history of anemia, hypertension, deep venous thrombosis, pulmonary embolism (on Coumadin), insulin-dependent diabetes mellitus, end-stage renal disease (on hemodialysis q. M/W/; received full dialysis on Wednesday without complications), myosistis, osteomylities (right fifth digit surgery) admitted for DKA. DKA h/o IDDM/ uncontrolled DM resolved started on levemir 10mg bid and novalog sliding scale sugar achs continue with diabetic diet ESRD ( HD , , ) - HD done today -Renal on case -renal diet -monitor electrolytes Pseudohyponatremia resolved hyperkalemia resolved Chronic Anemia due to ESRD Hb 7.5 monitor haemoglobin HTN continue with clonidine, labetalol, procardia, losartan, hydralazine Elevated alk phos, - in last admission close to 1000 - usg in last admission shows enlarged liver, - Elevated alk phos may be from bone (osteo + renal osteodystrophy), may be from cbd, - ggt elevated - ultrasoundm negative for DVT Constipation -on senna FEN fluid: avoid iv fluid, patient goes in overload electrolyte: monitor nutrition: Diabetic diet Dispo: transferred to med surg Visit type - Emergency Visit Emergency Visit: Yes ED Registration Date: 08/05/16 Care time: The patient presented to the Emergency Department on the above date and was hospitalized for further evaluation of their emergent condition. - New Patient This patient is new to me today: Yes Date on this admission: 08/07/16 - Critical Care Critical Care patient: Yes Total Critical Care Time (in minutes): 40 Critical Care Statement: The care of this patient involved high complexity decision making to prevent further life threatening deterioration of the patient 's condition and/or to evalute & treat vital organ system(s) failure or risk of failure.
[2016-08-07] MEDS ORDERED: INSULIN (NOVOLOG) ASPART 100 UNITS/ML 10ML VIAL ONE (16:46)
--- NOTE | 2016-08-08 01:01 | PN ---
Progress Note (short form) - Note Progress Note: continues with neuropathic pain,labile sugars, Abnormal Lab Results 08/05/16 08/05/16 08/07/16 11:55 12:00 05:10 WBC 10.4 H RBC 3.17 L Hgb 7.5 L Hct 24.6 L MCV 77.8 L MCHC 30.4 L RDW 18.4 H Plt Count 444 H Lymphocytes % 7.5 L Monocytes % 15.3 H VBG pH 7.14 L* D POC VBG pCO2 27.9 L D POC VBG pO2 90.4 H D Mixed VBG HCO3 9.2 L* Chloride BUN Creatinine Calcium Crossmatch See Detail 08/07/16 05:10 WBC RBC Hgb Hct MCV MCHC RDW Plt Count Lymphocytes % Monocytes % VBG pH POC VBG pCO2 POC VBG pO2 Mixed VBG HCO3 Chloride 95 L BUN 39 H D Creatinine 4.9 H D Calcium 7.6 L Crossmatch Laboratory Results - last 24 hr 08/05/16 08/05/16 08/05/16 11:55 12:00 12:00 WBC RBC Hgb Hct MCV MCHC RDW Plt Count MPV Neutrophils % Lymphocytes % Monocytes % Eosinophils % Basophils % VBG pH 7.14 L* D POC VBG pCO2 27.9 L D POC VBG pO2 90.4 H D Mixed VBG HCO3 9.2 L* Sodium Potassium Chloride Carbon Dioxide Anion Gap BUN Creatinine POC Glucometer Random Glucose Lactic Acid 1.526 Calcium Blood Type B POSITIVE Antibody Screen Negative Crossmatch See Detail 08/07/16 08/07/16 08/07/16 05:10 05:10 06:22 WBC 10.4 H RBC 3.17 L Hgb 7.5 L Hct 24.6 L MCV 77.8 L MCHC 30.4 L RDW 18.4 H Plt Count 444 H MPV 8.3 Neutrophils % 76.1 Lymphocytes % 7.5 L Monocytes % 15.3 H Eosinophils % 0.8 Basophils % 0.3 VBG pH POC VBG pCO2 POC VBG pO2 Mixed VBG HCO3 Sodium 137 Potassium 4.7 Chloride 95 L Carbon Dioxide 27 Anion Gap 15 BUN 39 H D Creatinine 4.9 H D POC Glucometer 134.04689 Random Glucose 97 D Lactic Acid Calcium 7.6 L Blood Type Antibody Screen Crossmatch 08/07/16 08/07/16 08/07/16 11:38 16:43 22:40 WBC RBC Hgb Hct MCV MCHC RDW Plt Count MPV Neutrophils % Lymphocytes % Monocytes % Eosinophils % Basophils % VBG pH POC VBG pCO2 POC VBG pO2 Mixed VBG HCO3 Sodium Potassium Chloride Carbon Dioxide Anion Gap BUN Creatinine POC Glucometer [phone] 205 Random Glucose Lactic Acid Calcium Blood Type Antibody Screen Crossmatch Current Active Problems DKA, type 1 (Acute) Diabetes mellitus, insulin dependent (IDDM), uncontrolled (Acute) Leukocytosis (Acute) Swelling of right lower extremity (Acute) ESRD (end stage renal disease) on dialysis (Chronic) plan: levemir 10 units bid novolog sliding scale given recurrence of dka likely diabetic control and gastroparesis Problem List - Problems (1) DKA, type 1 Code(s): E10.10 - TYPE 1 DIABETES MELLITUS WITH KETOACIDOSIS WITHOUT COMA Qualifiers: Diabetes mellitus complication detail: without coma Qualified Code(s): E10.10 - Type 1 diabetes mellitus with ketoacidosis without coma (2) Diabetes mellitus, insulin dependent (IDDM), uncontrolled Code(s): E10.65 - TYPE 1 DIABETES MELLITUS WITH HYPERGLYCEMIA Qualifiers: Diabetes mellitus complication status: with unspecified complications Qualified Code(s): E10.8 - Type 1 diabetes mellitus with unspecified complications; E10.65 - Type 1 diabetes mellitus with hyperglycemia (3) ESRD (end stage renal disease) on dialysis Code(s): N18.6 - END STAGE RENAL DISEASE Z99.2 - DEPENDENCE ON RENAL DIALYSIS (4) Diabetic foot infection Code(s): E11.69 - TYPE 2 DIABETES MELLITUS WITH OTHER SPECIFIED COMPLICATION L08.9 - LOCAL INFECTION OF THE SKIN AND SUBCUTANEOUS TISSUE, UNSP
[2016-08-08] MEDS: MUPIROCIN 2% TOPICAL OINTMENT FOR DECOLONIZATION NS SCH ×3 (01:37→22:32)
[2016-08-08] MEDS: CHLORHEXIDINE GLUCONATE 4% CLEANSER FOR DECOLONIZATION TP SCH ×2 (01:38→22:32)
[2016-08-08] MEDS: GABAPENTIN 100 MG CAPSULE (FP) PO SCH ×3 (06:37→22:31)
[2016-08-08] MEDS: cloNIDine HCL 0.1 MG TABLET PO SCH ×3 (06:37→22:30)
[2016-08-08] MEDS: hydrALAZINE HCL 25 MG TABLET (FP) PO SCH ×3 (06:37→22:31)
[2016-08-08] MEDS: LABETALOL HCL 200 MG TABLET (FP) PO SCH ×3 (06:38→22:31)
[2016-08-08] MEDS: INSULIN SLIDING SCALE (NOVOLOG) 1 VIAL SQ SCH ×4 (06:38→22:42)
[2016-08-08] MEDS: oxyCODONE HCL 5 MG TABLET PO PRN ×3 (06:51→19:49)
[2016-08-08] MEDS: ACETAMINOPHEN 325 MG TABLET (FP) PO PRN ×3 (06:52→19:51)
[2016-08-08] MEDS ORDERED: INSULIN (NOVOLOG) ASPART 100 UNITS/ML 10ML VIAL ONE (07:06)
[2016-08-08] MEDS: SEVELAMER CARBONATE 800 MG TAB (FP) PO SCH ×3 (08:42→17:50)
[2016-08-08] MEDS ORDERED: PT OWN MED DRAWER 7, Y5N ONE (10:08)
[2016-08-08] MEDS: ASPIRIN 325 MG TABLET PO SCH (10:12)
[2016-08-08] MEDS: NIFEdipine E.R. 30 MG TABLET (FP) PO SCH (10:13)
[2016-08-08] MEDS: INSULIN DETEMIR 100 UNITS/ML MDV SQ SCH ×2 (10:13→22:31)
[2016-08-08] MEDS: SENNOSIDES 8.6MG TABLET (FP) PO SCH (10:13)
[2016-08-08] MEDS: LOSARTAN POTASSIUM 25 MG TABLET PO SCH (10:13)
[2016-08-08] MEDS: CINACALCET HCL 30 MG TAB (FP) PO SCH (10:16)
--- NOTE | 2016-08-08 12:11 | PN ---
Progress Note (short form) - Note Progress Note: pt seen/ examined. no complains . pain in right thigh - better reports swelling is there for many years also tells me same thing with left leg before-- had biopsy done but nothing was found no other issues Vital Signs Temp 98.8 F 08/08/16 09:20 Pulse 81 08/08/16 09:30 Resp 18 08/08/16 09:20 BP 150/76 08/08/16 09:20 Pulse Ox 97 08/08/16 09:30 Intake & Output 08/07/16 08/08/16 08/08/16 23:59 11:59 23:59 Intake Total 950 200 Balance 950 200 Intake: Oral 950 200 Other: Voiding Method Toilet Active Medications Acetaminophen (Tylenol -) 325 mg PO Q6H PRN PRN Reason: PAIN LEVEL 6-10 Last Admin: 08/08/16 06:52 Dose: 325 mg Aspirin (Asa -) 325 mg PO DAILY [facility] Last Admin: 08/08/16 10:12 Dose: 325 mg Chlorhexidine Gluconate (Hibiclens For Decolonization -) 1 applic TP HS [facility] Last Admin: 08/08/16 01:38 Dose: Not Given Cinacalcet (Sensipar -) 60 mg PO DAILY [facility] Last Admin: 08/08/16 10:16 Dose: 60 mg Clonidine (Catapres -) 0.3 mg PO TID [facility] Last Admin: 08/08/16 06:37 Dose: 0.3 mg Gabapentin (Neurontin -) 100 mg PO TID [facility] Last Admin: 08/08/16 06:37 Dose: 100 mg Hydralazine HCl (Apresoline -) 25 mg PO TID [facility] Last Admin: 08/08/16 06:37 Dose: 25 mg Insulin Aspart (Novolog Vial Sliding Scale -) 1 vial SQ ACHS [facility] PRN Reason: Protocol Last Admin: 08/08/16 06:38 Dose: 4 units Insulin Detemir (Levemir Vial) 10 units SQ BID [facility] Last Admin: 08/08/16 10:13 Dose: 10 units Labetalol HCl (Normodyne -) 200 mg PO TID [facility] Last Admin: 08/08/16 06:38 Dose: 200 mg Losartan Potassium (Cozaar -) 25 mg PO DAILY [facility] Last Admin: 08/08/16 10:13 Dose: 25 mg Mupirocin (Bactroban Ointment (For Decolonization) -) 1 applic NS BID [facility] Stop: 08/10/16 21:59 Last Admin: 08/08/16 10:08 Dose: Not Given Nifedipine (Procardia Xl -) 30 mg PO DAILY [facility] Last Admin: 08/08/16 10:13 Dose: 30 mg Oxycodone HCl (Roxicodone -) 10 mg PO Q6H PRN PRN Reason: PAIN LEVEL 6-10 Last Admin: 08/08/16 06:51 Dose: 10 mg Senna (Senna -) 1 tab PO DAILY [facility] Last Admin: 08/08/16 10:13 Dose: 1 tab Sevelamer Carbonate (Renvela -) 1,600 mg PO TIDCM [facility] Last Admin: 08/08/16 08:42 Dose: 1,600 mg CBC, BMP 08/07/16 05:10 08/07/16 05:10 Physical EXam Constitutional: Yes: comfortable Eyes: Yes: Nad HEENT: Yes: wnl Neck: Yes: Supple Cardiovascular: Yes: Regular Rate and Rhythm, S1, S2 Respiratory: Yes: Regular, CTA Bilaterally Gastrointestinal: Yes: Normal Bowel Sounds Extremities: Yes: right thigh swelling present-- no redness Problem List - Problems (1) DKA, type 1 Code(s): E10.10 - TYPE 1 DIABETES MELLITUS WITH KETOACIDOSIS WITHOUT COMA Qualifiers: Diabetes mellitus complication detail: without coma Qualified Code(s): E10.10 - Type 1 diabetes mellitus with ketoacidosis without coma (2) ESRD (end stage renal disease) on dialysis Code(s): N18.6 - END STAGE RENAL DISEASE Z99.2 - DEPENDENCE ON RENAL DIALYSIS (3) Diabetic ketoacidosis with coma associated with type 1 diabetes mellitus Code(s): E10.11 - TYPE 1 DIABETES MELLITUS WITH KETOACIDOSIS WITH COMA (4) Fluid overload Code(s): E87.70 - FLUID OVERLOAD, UNSPECIFIED Qualifiers: Hypervolemia type: unspecified Qualified Code(s): E87.70 - Fluid overload, unspecified (5) Dialysis patient Code(s): Z99.2 - DEPENDENCE ON RENAL DIALYSIS (6) HTN (hypertension) Code(s): I10 - ESSENTIAL (PRIMARY) HYPERTENSION Qualifiers: Hypertension type: essential hypertension Qualified Code(s): I10 - Essential (primary) hypertension (7) Swelling of right lower extremity Code(s): M79.89 - OTHER SPECIFIED SOFT TISSUE DISORDERS Assessment/Plan clinically stable DKA resolved Ultrasound --negative for DVT--but shows-complex masses? CT of right lower extremity -- muscle swelling . will ask for surgical eval Biopsy ? will follow Continue other medications
--- NOTE | 2016-08-08 16:31 | PN ---
Progress Note (short form) - Note Progress Note: Current Medications Acetaminophen (Tylenol -) 325 mg PO Q6H PRN PRN Reason: PAIN LEVEL 6-10 Last Admin: 08/08/16 13:17 Dose: 325 mg Aspirin (Asa -) 325 mg PO DAILY [facility] Last Admin: 08/08/16 10:12 Dose: 325 mg Chlorhexidine Gluconate (Hibiclens For Decolonization -) 1 applic TP HS [facility] Last Admin: 08/08/16 01:38 Dose: Not Given Cinacalcet (Sensipar -) 60 mg PO DAILY [facility] Last Admin: 08/08/16 10:16 Dose: 60 mg Clonidine (Catapres -) 0.3 mg PO TID [facility] Last Admin: 08/08/16 15:16 Dose: 0.3 mg Gabapentin (Neurontin -) 100 mg PO TID [facility] Last Admin: 08/08/16 15:17 Dose: 100 mg Hydralazine HCl (Apresoline -) 25 mg PO TID [facility] Last Admin: 08/08/16 15:17 Dose: 25 mg Insulin Aspart (Novolog Vial Sliding Scale -) 1 vial SQ ACHS [facility] PRN Reason: Protocol Last Admin: 08/08/16 12:24 Dose: 2 units Insulin Detemir (Levemir Vial) 10 units SQ BID [facility] Last Admin: 08/08/16 10:13 Dose: 10 units Labetalol HCl (Normodyne -) 200 mg PO TID [facility] Last Admin: 08/08/16 15:17 Dose: 200 mg Losartan Potassium (Cozaar -) 25 mg PO DAILY [facility] Last Admin: 08/08/16 10:13 Dose: 25 mg Mupirocin (Bactroban Ointment (For Decolonization) -) 1 applic NS BID [facility] Stop: 08/10/16 21:59 Last Admin: 08/08/16 10:08 Dose: Not Given Nifedipine (Procardia Xl -) 30 mg PO DAILY [facility] Last Admin: 08/08/16 10:13 Dose: 30 mg Oxycodone HCl (Roxicodone -) 10 mg PO Q6H PRN PRN Reason: PAIN LEVEL 6-10 Last Admin: 08/08/16 13:15 Dose: 10 mg Senna (Senna -) 1 tab PO DAILY [facility] Last Admin: 08/08/16 10:13 Dose: 1 tab Sevelamer Carbonate (Renvela -) 1,600 mg PO TIDCM [facility] Last Admin: 08/08/16 12:24 Dose: 1,600 mg Last Vital Signs Temp Pulse Resp BP Pulse Ox 98.5 F 86 18 151/98 97 08/08/16 16:03 08/08/16 16:03 08/08/16 16:03 08/08/16 16:03 08/08/16 09:30 Lungs clear Heart RRR Abd soft nontender Ext mild edema R>L CBC, BMP 08/07/16 05:10 08/07/16 05:10 esrd dm/dka right thigh pain/edematous masses h/o prior occurrences anemia Plan- HD wednesday
[2016-08-09] MEDS: oxyCODONE HCL 5 MG TABLET PO PRN ×2 (04:31→21:00)
[2016-08-09] MEDS: ACETAMINOPHEN 325 MG TABLET (FP) PO PRN (04:32)
[2016-08-09] MEDS: cloNIDine HCL 0.1 MG TABLET PO SCH ×3 (06:15→21:02)
[2016-08-09] MEDS: INSULIN SLIDING SCALE (NOVOLOG) 1 VIAL SQ SCH ×4 (06:16→21:53)
[2016-08-09] MEDS: GABAPENTIN 100 MG CAPSULE (FP) PO SCH ×3 (06:16→21:02)
[2016-08-09] MEDS: hydrALAZINE HCL 25 MG TABLET (FP) PO SCH ×3 (06:16→21:02)
[2016-08-09] MEDS: LABETALOL HCL 200 MG TABLET (FP) PO SCH ×3 (06:16→21:02)
[2016-08-09] MEDS: SEVELAMER CARBONATE 800 MG TAB (FP) PO SCH ×3 (08:34→17:32)
[2016-08-09] MEDS ORDERED: oxyCODONE HCL 5 MG TABLET PO ONE (10:00)
[2016-08-09] MEDS ORDERED: ACETAMINOPHEN 325 MG TABLET (FP) PO ONE (10:00)
[2016-08-09] MEDS ORDERED: ACETAMINOPHEN 325 MG TABLET (FP) PO PRN ×2 (10:03→16:47)
[2016-08-09] MEDS ORDERED: oxyCODONE HCL 5 MG TABLET PO PRN (10:04)
[2016-08-09] MEDS: SENNOSIDES 8.6MG TABLET (FP) PO SCH (10:20)
[2016-08-09] MEDS: NIFEdipine E.R. 30 MG TABLET (FP) PO SCH (10:20)
[2016-08-09] MEDS: CINACALCET HCL 30 MG TAB (FP) PO SCH (10:20)
[2016-08-09] MEDS: LOSARTAN POTASSIUM 25 MG TABLET PO SCH (10:21)
[2016-08-09] MEDS: MUPIROCIN 2% TOPICAL OINTMENT FOR DECOLONIZATION NS SCH ×2 (10:25→21:05)
[2016-08-09] MEDS: INSULIN DETEMIR 100 UNITS/ML MDV SQ SCH ×2 (11:21→21:53)
[2016-08-09] MEDS ORDERED: INSULIN (NOVOLOG) ASPART 100 UNITS/ML 10ML VIAL ONE ×3 (11:25→18:34)
--- NOTE | 2016-08-09 12:32 | PN ---
Progress Note (short form) - Note Progress Note: pt seen/ examined. again having pain in right thigh no other issues except constipation Vital Signs Temp 97.9 F 08/09/16 08:42 Pulse 83 08/09/16 10:12 Resp 20 08/09/16 10:12 BP 132/76 08/09/16 10:12 Pulse Ox 97 08/09/16 09:37 Intake & Output 08/08/16 08/09/16 08/09/16 23:59 11:59 23:59 Intake Total 1370 520 Balance 1370 520 Intake: Oral 1370 520 Other: Voiding Method Toilet Toilet Bowel Movement No No Active Medications Acetaminophen (Tylenol -) 325 mg PO Q6H PRN Aspirin (Asa -) 325 mg PO DAILY [facility] Last Admin: 08/08/16 10:12 Dose: 325 mg Chlorhexidine Gluconate (Hibiclens For Decolonization -) 1 applic TP HS [facility] Last Admin: 08/08/16 22:32 Dose: Not Given Cinacalcet (Sensipar -) 60 mg PO DAILY [facility] Last Admin: 08/09/16 10:20 Dose: 60 mg Clonidine (Catapres -) 0.3 mg PO TID [facility] Last Admin: 08/09/16 06:15 Dose: 0.3 mg Docusate Sodium (Colace -) 100 mg PO BID PRN PRN Reason: CONSTIPATION Gabapentin (Neurontin -) 100 mg PO TID [facility] Last Admin: 08/09/16 06:16 Dose: 100 mg Hydralazine HCl (Apresoline -) 25 mg PO TID [facility] Last Admin: 08/09/16 06:16 Dose: 25 mg Insulin Aspart (Novolog Vial Sliding Scale -) 1 vial SQ [facility] PRN Reason: Protocol Last Admin: 08/09/16 11:27 Dose: 4 units Insulin Detemir (Levemir Vial) 10 units SQ BID [facility] Last Admin: 08/09/16 11:21 Dose: 10 units Labetalol HCl (Normodyne -) 200 mg PO TID [facility] Last Admin: 08/09/16 06:16 Dose: 200 mg Losartan Potassium (Cozaar -) 25 mg PO DAILY [facility] Last Admin: 08/09/16 10:21 Dose: 25 mg Mupirocin (Bactroban Ointment (For Decolonization) -) 1 applic NS BID [facility] Stop: 08/10/16 21:59 Last Admin: 08/09/16 10:25 Dose: Not Given Nifedipine (Procardia Xl -) 30 mg PO DAILY [facility] Last Admin: 08/09/16 10:20 Dose: 30 mg Oxycodone HCl (Roxicodone -) 10 mg PO Q6H PRN Senna (Senna -) 1 tab PO DAILY [facility] Last Admin: 08/09/16 10:20 Dose: 1 tab Sevelamer Carbonate (Renvela -) 1,600 mg PO TIDCM [facility] Last Admin: 08/09/16 08:34 Dose: 1,600 mg CBC, BMP 08/07/16 05:10 08/07/16 05:10 Physical EXam Constitutional: Yes: comfortable Eyes: Yes: Nad HEENT: Yes: wnl Neck: Yes: Supple Cardiovascular: Yes: Regular Rate and Rhythm, S1, S2 Respiratory: Yes: Regular, CTA Bilaterally Gastrointestinal: Yes: Normal Bowel Sounds Extremities: Yes: right thigh swelling present-- Problem List - Problems (1) DKA, type 1 Code(s): E10.10 - TYPE 1 DIABETES MELLITUS WITH KETOACIDOSIS WITHOUT COMA Qualifiers: Diabetes mellitus complication detail: without coma Qualified Code(s): E10.10 - Type 1 diabetes mellitus with ketoacidosis without coma (2) ESRD (end stage renal disease) on dialysis Code(s): N18.6 - END STAGE RENAL DISEASE Z99.2 - DEPENDENCE ON RENAL DIALYSIS (3) Diabetic ketoacidosis with coma associated with type 1 diabetes mellitus Code(s): E10.11 - TYPE 1 DIABETES MELLITUS WITH KETOACIDOSIS WITH COMA (4) Fluid overload Code(s): E87.70 - FLUID OVERLOAD, UNSPECIFIED Qualifiers: Hypervolemia type: unspecified Qualified Code(s): E87.70 - Fluid overload, unspecified (5) Dialysis patient Code(s): Z99.2 - DEPENDENCE ON RENAL DIALYSIS (6) HTN (hypertension) Code(s): I10 - ESSENTIAL (PRIMARY) HYPERTENSION Qualifiers: Hypertension type: essential hypertension Qualified Code(s): I10 - Essential (primary) hypertension (7) Swelling of right lower extremity Code(s): M79.89 - OTHER SPECIFIED SOFT TISSUE DISORDERS Assessment/Plan continue present care hd per renal surgical eval pending pain control add colace will follow
[2016-08-09] MEDS: ASPIRIN 325 MG TABLET PO SCH (12:38)
[2016-08-09] MEDS: DOCUSATE SODIUM 100 MG CAPSULE (FP) PO PRN (15:00)
--- NOTE | 2016-08-09 15:08 | CONSULT ---
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 She had had a chronic osteomyelitis of left foot and has had debridement of left 5th toe with eventual healing. She denies any new foot infections. Swelling has been present for months with a waxing and waning course. - History Source History Provided By: Patient, Medical Record - Past Medical History Cardio/Vascular: Yes: CHF, HTN, Other (thrombus in heart per echo 11/2013; ? subclavian vein thromboses s/p dialysis catheters in the past) Pulmonary: Yes: Pulmonary Embolus Renal/: Yes: Renal Failure, Hemodialysis ...LMP: 10/02/15 ...: No Infectious Disease: Yes: MRSA (history of bacteremia, recent mrsa foot abscess) Endocrine: Yes: Diabetes Mellitus (type 1 on insulin pump) Additional Medical History: DVT, PE on coumadin - Past Surgical History Past Surgical History: Yes: AV Fistula/Graft (Right arm) - Alcohol/Substance Use Hx Alcohol Use: No History of Substance Use: reports: None - Smoking History Smoking history: Unknown if ever smoked Have you smoked in the past 12 months: No Aproximately how many cigarettes per day: 10 - Social History Usual Living Arrangement: With Parent ADL: Independent Occupation: unemployed History of Recent Travel: No Home Medications - Allergies Allergies/Adverse Reactions: Allergies Allergy/AdvReac Type Severity Reaction Status Date / Time No Known Drug Allergies Allergy Verified 08/05/16 12:42 - Home Medications Home Medications: Ambulatory Orders Oxycodone HCl/Acetaminophen [Percocet 5-325 mg Tablet] 1 tab PO Q6H PRN #10 tablet MDD 4 11/11/15 Gabapentin 100 mg PO TID 03/11/16 Mupirocin Cream [Bactroban 2% Cream -] 1 applic TP BID #1 tube 05/07/16 Clonidine HCl [Catapres -] 0.3 mg PO TID #90 tablet 07/14/16 Hydralazine HCl [Apresoline -] 25 mg PO TID #60 tablet 07/14/16 Insulin (Levemir) [Levemir Vial] 25 units SQ DAILY@0700 #30 ml 07/14/16 Labetalol HCl [Normodyne -] 200 mg PO TID #90 tablet 07/14/16 Losartan Potassium [Cozaar -] 25 mg PO DAILY #30 tablet 07/14/16 Sevelamer Carbonate [Renvela -] 1,600 mg PO TIDCM #60 tab 07/14/16 Aspirin [ASA -] 325 mg PO DAILY 08/05/16 Cinacalcet HCl [Sensipar] 60 mg PO DAILY 08/05/16 Diphenhydramine [Benadryl -] 50 mg PO HS 08/05/16 Insulin Lispro [Humalog Kwikpen U-100] 0 unit SQ [facility] 08/05/16 Nifedipine [Procardia Xl] 30 mg PO TID 08/05/16 Sennosides [Senna] 8.6 mg PO DAILY 08/05/16 Family Disease History - Family Disease History Family Disease History: Diabetes: Grandparent (HTN), Heart Disease: Grandparent , Other: Father (unknown), Mother (HTN) Physical Exam Vital Signs: Vital Signs Temperature 97.9 F 08/09/16 08:42 Pulse Rate 86 08/09/16 14:55 Respiratory Rate 20 08/09/16 14:55 Blood Pressure 157/101 08/09/16 14:55 O2 Sat by Pulse Oximetry (%) 97 08/09/16 09:37 Constitutional: Yes: No Distress Eyes: Yes: EOM Intact HENT: Yes: WNL Neck: Yes: Supple Cardiovascular: Yes: Regular Rate and Rhythm Respiratory: Yes: Regular Gastrointestinal: Yes: Soft Extremities: Yes: Other (Right thigh edema 3+ with mild calf swelling. Foot warm with palpable pulses. No open wounds. Inguinal adenopathy on right.) Edema: Yes Edema: RLE: 3+ Peripheral Pulses WNL: Yes Labs: CBC, BMP 08/07/16 05:10 08/07/16 05:10 Imaging - Results Cat Scan: Image Reviewed (CT Thigh with diffuse muscle swelling anterolatral compartments. No gross fracture, abscess or foreign body in right leg.) Problem List - Problems (1) Swelling of right lower extremity Assessment/Plan: Chronic edema of right thigh. In the past the left leg welling was felt to be due to underlying infection but so far there is no evidence for an acute infectious process in right lag. Inguinal node is likely reactive. Rec: Check ESR And CRP to compare to previous values. Inguinal lymph node biopsy if no change in 24-48 hours. Code(s): M79.89 - OTHER SPECIFIED SOFT TISSUE DISORDERS
--- NOTE | 2016-08-09 17:28 | PN ---
Progress Note (short form) - Note Progress Note: better overall recurrent right thigh pains seen by surgery Current Medications Acetaminophen (Tylenol -) 325 mg PO Q4H PRN Aspirin (Asa -) 325 mg PO DAILY [facility] Last Admin: 08/09/16 12:38 Dose: 325 mg Chlorhexidine Gluconate (Hibiclens For Decolonization -) 1 applic TP HS [facility] Last Admin: 08/08/16 22:32 Dose: Not Given Cinacalcet (Sensipar -) 60 mg PO DAILY [facility] Last Admin: 08/09/16 10:20 Dose: 60 mg Clonidine (Catapres -) 0.3 mg PO TID [facility] Last Admin: 08/09/16 15:00 Dose: 0.3 mg Docusate Sodium (Colace -) 100 mg PO BID PRN PRN Reason: CONSTIPATION Last Admin: 08/09/16 15:00 Dose: 100 mg Gabapentin (Neurontin -) 100 mg PO TID [facility] Last Admin: 08/09/16 15:01 Dose: 100 mg Hydralazine HCl (Apresoline -) 25 mg PO TID [facility] Last Admin: 08/09/16 15:01 Dose: 25 mg Insulin Aspart (Novolog Vial Sliding Scale -) 1 vial SQ ACHS [facility] PRN Reason: Protocol Last Admin: 08/09/16 11:27 Dose: 4 units Insulin Detemir (Levemir Vial) 10 units SQ BID [facility] Last Admin: 08/09/16 11:21 Dose: 10 units Labetalol HCl (Normodyne -) 200 mg PO TID [facility] Last Admin: 08/09/16 15:01 Dose: 200 mg Losartan Potassium (Cozaar -) 25 mg PO DAILY [facility] Last Admin: 08/09/16 10:21 Dose: 25 mg Mupirocin (Bactroban Ointment (For Decolonization) -) 1 applic NS BID [facility] Stop: 08/10/16 21:59 Last Admin: 08/09/16 10:25 Dose: Not Given Nifedipine (Procardia Xl -) 30 mg PO DAILY [facility] Last Admin: 08/09/16 10:20 Dose: 30 mg Oxycodone HCl (Roxicodone -) 10 mg PO Q4H PRN Senna (Senna -) 1 tab PO DAILY [facility] Last Admin: 08/09/16 10:20 Dose: 1 tab Sevelamer Carbonate (Renvela -) 1,600 mg PO TIDCM [facility] Last Admin: 08/09/16 12:39 Dose: 1,600 mg no sob Last Vital Signs Temp Pulse Resp BP Pulse Ox 98.5 F 87 20 154/89 97 08/09/16 15:22 08/09/16 15:22 08/09/16 15:22 08/09/16 15:22 08/09/16 09:37 lungs clear heart RRR abd soft nontender Ext nonpitting edema IMP- ESRD DM S/P DKA Plan- HD on wednesday
[2016-08-09] MEDS: CHLORHEXIDINE GLUCONATE 4% CLEANSER FOR DECOLONIZATION TP SCH (21:05)
[2016-08-10] MEDS ORDERED: ACETAMINOPHEN 325 MG TABLET (FP) ONE (02:00)
[2016-08-10] MEDS: oxyCODONE HCL 5 MG TABLET PO PRN ×4 (02:17→20:24)
[2016-08-10] MEDS: ACETAMINOPHEN 325 MG TABLET (FP) PO PRN ×4 (02:22→20:24)
[2016-08-10] MEDS: GABAPENTIN 100 MG CAPSULE (FP) PO SCH ×3 (06:10→22:11)
[2016-08-10] MEDS: INSULIN SLIDING SCALE (NOVOLOG) 1 VIAL SQ SCH ×4 (06:11→22:11)
[2016-08-10] MEDS: hydrALAZINE HCL 25 MG TABLET (FP) PO SCH ×3 (06:12→22:11)
[2016-08-10] MEDS: LABETALOL HCL 200 MG TABLET (FP) PO SCH ×3 (06:13→22:11)
[2016-08-10] MEDS: cloNIDine HCL 0.1 MG TABLET PO SCH ×3 (06:13→22:11)
[2016-08-10 07:35] LABS: MCH 24.5 pg (25.7-33.7); MCHC 31.2 g/dl (32.0-36.0); MEAN CELL VOLUME 78.5 fl (80-96); MEAN PLT VOLUME 8.5 fl (7.5-11.1); PLATELET COUNT 472 K/MM3 (134-434); RDW 18.2 % (11.6-15.6); WHITE BLOOD COUNT 14.9 K/mm3 (4.0-10.0)
[2016-08-10 08:31] LABS: ALBUMIN 2.3 g/dl (3.4-5.0); CALCIUM 7.7 mg/dL (8.5-10.1)
[2016-08-10 08:33] LABS: BILIRUBIN,TOTAL 0.6 mg/dL (0.2-1.0); C-REACTIVE PROTEIN 17.6 MG/DL (0.00-0.3); COCKROFT - GAULT 13.209; CREATININE 6.8 mg/dL (0.55-1.02); TOT PROT 6.9 g/dl (6.4-8.2)
--- NOTE | 2016-08-10 08:55 | PN ---
Progress Note (short form) - Note Progress Note: SUBJECTIVE: Patient seen and examined. Just finished dialysis. Comfortable. Today she reports pain is better. Surgical consult noted and appreciated. OBJECTIVE: Vital Signs 08/10/16 08/10/16 08/10/16 07:05 07:10 07:40 Temperature 97.7 F Pulse Rate 82 84 82 Respiratory 18 18 18 Rate Blood Pressure 138/89 152/98 141/87 08/10/16 08/10/16 08/10/16 08:10 08:40 09:10 Temperature Pulse Rate 86 89 84 Respiratory 18 18 18 Rate Blood Pressure 140/86 139/84 140/93 08/10/16 08/10/16 09:40 10:10 Temperature Pulse Rate 84 92 H Respiratory 18 18 Rate Blood Pressure 162/97 178/107 Intake & Output 08/09/16 08/10/16 08/10/16 23:59 07:59 15:59 Intake Total 240 240 Balance 240 240 Weight 66.769 kg Intake: Oral 240 240 Other: Voiding Method Toilet Bowel Movement No Weight Measurement Method Built in [facility] Active Medications Acetaminophen (Tylenol -) 650 mg PO Q4H PRN Last Admin: 08/10/16 06:35 Dose: 650 mg Aspirin (Asa -) 325 mg PO DAILY [facility] Last Admin: 08/09/16 12:38 Dose: 325 mg Chlorhexidine Gluconate (Hibiclens For Decolonization -) 1 applic TP HS [facility] Last Admin: 08/09/16 21:05 Dose: Not Given Cinacalcet (Sensipar -) 60 mg PO DAILY [facility] Last Admin: 08/09/16 10:20 Dose: 60 mg Clonidine (Catapres -) 0.3 mg PO TID [facility] Last Admin: 08/10/16 06:13 Dose: Not Given Docusate Sodium (Colace -) 100 mg PO BID PRN PRN Reason: CONSTIPATION Last Admin: 08/09/16 15:00 Dose: 100 mg Gabapentin (Neurontin -) 100 mg PO TID [facility] Last Admin: 08/10/16 06:10 Dose: 100 mg Hydralazine HCl (Apresoline -) 25 mg PO TID [facility] Last Admin: 08/10/16 06:12 Dose: Not Given Insulin Aspart (Novolog Vial Sliding Scale -) 1 vial SQ ACHS [facility] PRN Reason: Protocol Last Admin: 08/10/16 06:11 Dose: 2 units Insulin Detemir (Levemir Vial) 10 units SQ BID [facility] Last Admin: 08/09/16 21:53 Dose: 10 units Labetalol HCl (Normodyne -) 200 mg PO TID [facility] Last Admin: 08/10/16 06:13 Dose: Not Given Losartan Potassium (Cozaar -) 25 mg PO DAILY [facility] Last Admin: 08/10/16 10:13 Dose: Not Given Mupirocin (Bactroban Ointment (For Decolonization) -) 1 applic NS BID [facility] Stop: 08/10/16 21:59 Last Admin: 08/10/16 10:09 Dose: Not Given Nifedipine (Procardia Xl -) 30 mg PO DAILY [facility] Last Admin: 08/10/16 10:13 Dose: Not Given Oxycodone HCl (Roxicodone -) 10 mg PO Q4H PRN Last Admin: 08/10/16 06:37 Dose: 10 mg Senna (Senna -) 1 tab PO DAILY [facility] Last Admin: 08/09/16 10:20 Dose: 1 tab Sevelamer Carbonate (Renvela -) 1,600 mg PO TIDCM [facility] Last Admin: 08/10/16 08:56 Dose: 1,600 mg CBC, BMP 08/10/16 07:10 08/10/16 07:10 Laboratory Results - last 24 hr 08/05/16 08/09/16 08/09/16 12:00 11:20 17:30 WBC RBC Hgb Hct MCV MCHC RDW Plt Count MPV Sodium Potassium Chloride Carbon Dioxide Anion Gap BUN Creatinine Creat Clearance w eGFR POC Glucometer 211 182 Random Glucose Calcium Total Bilirubin AST ALT Alkaline Phosphatase C-Reactive Protein Total Protein Albumin Blood Type B POSITIVE Antibody Screen Negative Crossmatch See Detail 08/09/16 08/10/16 08/10/16 21:12 06:08 07:10 WBC RBC Hgb Hct MCV MCHC RDW Plt Count MPV Sodium 133 L Potassium 5.3 H Chloride 91 L Carbon Dioxide 24 Anion Gap 18 H BUN 53 H D Creatinine 6.8 H D Creat Clearance w eGFR 7.34 POC Glucometer 205 175 Random Glucose 212 H D Calcium 7.7 L Total Bilirubin 0.6 AST 21 ALT 11 L D Alkaline Phosphatase 608 H D C-Reactive Protein 17.6 H D Total Protein 6.9 Albumin 2.3 L Blood Type Antibody Screen Crossmatch 08/10/16 08/10/16 07:10 07:10 WBC 14.9 H D RBC 3.34 L Hgb 8.2 L Hct 26.2 L MCV 78.5 L MCHC 31.2 L RDW 18.2 H Plt Count 472 H MPV 8.5 Sodium Potassium Chloride Carbon Dioxide Anion Gap BUN Creatinine Creat Clearance w eGFR POC Glucometer Random Glucose Calcium Total Bilirubin AST ALT Alkaline Phosphatase C-Reactive Protein Total Protein Albumin Blood Type B POSITIVE Antibody Screen Negative Crossmatch See Detail Microbiology 08/05/16 11:40 Blood Culture - Preliminary Blood - Peripheral Venous NO GROWTH OBTAINED AFTER 96 HOURS, INCUBATION TO CONTINUE FOR 1 DAYS. 08/05/16 12:00 Blood Culture - Preliminary Blood - Peripheral Venous NO GROWTH OBTAINED AFTER 96 HOURS, INCUBATION TO CONTINUE FOR 1 DAYS. PHYSICAL EXAMINATION: Constitutional: Yes: Comfortable. No acute distress. Eyes: Yes: PERRLA HEENT: Yes: wnl Neck: Yes: Supple Cardiovascular: Yes: Regular Rate and Rhythm, S1, S2 Respiratory: Yes: Regular, CTA Bilaterally Gastrointestinal: Yes: Normal Bowel Sounds Extremities: Yes: right thigh swelling present--same Problem List - Problems (1) DKA, type 1 Code(s): E10.10 - TYPE 1 DIABETES MELLITUS WITH KETOACIDOSIS WITHOUT COMA Qualifiers: Diabetes mellitus complication detail: without coma Qualified Code(s): E10.10 - Type 1 diabetes mellitus with ketoacidosis without coma (2) ESRD (end stage renal disease) on dialysis Code(s): N18.6 - END STAGE RENAL DISEASE Z99.2 - DEPENDENCE ON RENAL DIALYSIS (3) Diabetic ketoacidosis with coma associated with type 1 diabetes mellitus Code(s): E10.11 - TYPE 1 DIABETES MELLITUS WITH KETOACIDOSIS WITH COMA (4) Fluid overload Code(s): E87.70 - FLUID OVERLOAD, UNSPECIFIED Qualifiers: Hypervolemia type: unspecified Qualified Code(s): E87.70 - Fluid overload, unspecified (5) Dialysis patient Code(s): Z99.2 - DEPENDENCE ON RENAL DIALYSIS (6) HTN (hypertension) Code(s): I10 - ESSENTIAL (PRIMARY) HYPERTENSION Qualifiers: Hypertension type: essential hypertension Qualified Code(s): I10 - Essential (primary) hypertension (7) Swelling of right lower extremity Code(s): M79.89 - OTHER SPECIFIED SOFT TISSUE DISORDERS ASSESSMENT & PLAN: - Clinically stable. - Continue present care. - DKA resolved. - Inguinal node biopsy ? - Will discuss with Surgeon. - Will follow. Documentation prepared by Mel Barber, acting as a medical technician for Valentine Acuña MD.
[2016-08-10] MEDS: SEVELAMER CARBONATE 800 MG TAB (FP) PO SCH ×3 (08:56→17:53)
[2016-08-10] MEDS: MUPIROCIN 2% TOPICAL OINTMENT FOR DECOLONIZATION NS SCH (10:09)
[2016-08-10] MEDS ORDERED: PT OWN MED DRAWER 7, Y5N ONE (10:11)
[2016-08-10] MEDS: NIFEdipine E.R. 30 MG TABLET (FP) PO SCH ×2 (10:13→11:15)
[2016-08-10] MEDS: LOSARTAN POTASSIUM 25 MG TABLET PO SCH ×2 (10:13→11:15)
--- NOTE | 2016-08-10 10:56 | PN ---
Progress Note, Physician Chief Complaint: The patient seen in dialysis Reports feeling better. Still with pain in the right thigh. But better. The swelling also is persistent. History of Present Illness: Patient comfortable on dialysis. Receiving PRBC transfusion. UF Goal 5 Kg. - Current Medication List Current Medications: Active Medications Acetaminophen (Tylenol -) 650 mg PO Q4H PRN Last Admin: 08/10/16 06:35 Dose: 650 mg Aspirin (Asa -) 325 mg PO DAILY [facility] Last Admin: 08/09/16 12:38 Dose: 325 mg Chlorhexidine Gluconate (Hibiclens For Decolonization -) 1 applic TP HS [facility] Last Admin: 08/09/16 21:05 Dose: Not Given Cinacalcet (Sensipar -) 60 mg PO DAILY [facility] Last Admin: 08/09/16 10:20 Dose: 60 mg Clonidine (Catapres -) 0.3 mg PO TID [facility] Last Admin: 08/10/16 06:13 Dose: Not Given Docusate Sodium (Colace -) 100 mg PO BID PRN PRN Reason: CONSTIPATION Last Admin: 08/09/16 15:00 Dose: 100 mg Gabapentin (Neurontin -) 100 mg PO TID [facility] Last Admin: 08/10/16 06:10 Dose: 100 mg Hydralazine HCl (Apresoline -) 25 mg PO TID [facility] Last Admin: 08/10/16 06:12 Dose: Not Given Insulin Aspart (Novolog Vial Sliding Scale -) 1 vial SQ ACHS [facility] PRN Reason: Protocol Last Admin: 08/10/16 06:11 Dose: 2 units Insulin Detemir (Levemir Vial) 10 units SQ BID [facility] Last Admin: 08/09/16 21:53 Dose: 10 units Labetalol HCl (Normodyne -) 200 mg PO TID [facility] Last Admin: 08/10/16 06:13 Dose: Not Given Losartan Potassium (Cozaar -) 25 mg PO DAILY [facility] Last Admin: 08/10/16 10:13 Dose: Not Given Mupirocin (Bactroban Ointment (For Decolonization) -) 1 applic NS BID [facility] Stop: 08/10/16 21:59 Last Admin: 08/10/16 10:09 Dose: Not Given Nifedipine (Procardia Xl -) 30 mg PO DAILY [facility] Last Admin: 08/10/16 10:13 Dose: Not Given Oxycodone HCl (Roxicodone -) 10 mg PO Q4H PRN Last Admin: 08/10/16 06:37 Dose: 10 mg Senna (Senna -) 1 tab PO DAILY [facility] Last Admin: 08/09/16 10:20 Dose: 1 tab Sevelamer Carbonate (Renvela -) 1,600 mg PO TIDCM [facility] Last Admin: 08/10/16 08:56 Dose: 1,600 mg - Objective Vital Signs: Vital Signs Temperature 97.7 F 08/10/16 07:05 Pulse Rate 92 H 08/10/16 10:10 Respiratory Rate 18 08/10/16 10:10 Blood Pressure 178/107 08/10/16 10:10 O2 Sat by Pulse Oximetry (%) 98 08/09/16 21:00 Constitutional: Yes: Well Nourished, Calm Eyes: Yes: WNL HENT: Yes: WNL Neck: Yes: Supple Cardiovascular: Yes: Regular Rate and Rhythm, S1, S2 Respiratory: Yes: Regular, Diminished Gastrointestinal: Yes: Normal Bowel Sounds, Soft Extremities: Yes: Other (swollen, tender right thigh) Labs: CBC, BMP 08/10/16 07:10 08/10/16 07:10 INR, PTT INR 1.42 (0.82-1.09) H 08/05/16 12:00 Problem List - Problems (1) DKA, type 1 Code(s): E10.10 - TYPE 1 DIABETES MELLITUS WITH KETOACIDOSIS WITHOUT COMA Qualifiers: Diabetes mellitus complication detail: without coma Qualified Code(s): E10.10 - Type 1 diabetes mellitus with ketoacidosis without coma (2) ESRD (end stage renal disease) on dialysis Code(s): N18.6 - END STAGE RENAL DISEASE Z99.2 - DEPENDENCE ON RENAL DIALYSIS (3) Diabetic ketoacidosis with coma associated with type 1 diabetes mellitus Code(s): E10.11 - TYPE 1 DIABETES MELLITUS WITH KETOACIDOSIS WITH COMA (4) Fluid overload Code(s): E87.70 - FLUID OVERLOAD, UNSPECIFIED Qualifiers: Hypervolemia type: unspecified Qualified Code(s): E87.70 - Fluid overload, unspecified (5) Dialysis patient Code(s): Z99.2 - DEPENDENCE ON RENAL DIALYSIS (6) HTN (hypertension) Code(s): I10 - ESSENTIAL (PRIMARY) HYPERTENSION Qualifiers: Hypertension type: essential hypertension Qualified Code(s): I10 - Essential (primary) hypertension (7) Swelling of right lower extremity Code(s): M79.89 - OTHER SPECIFIED SOFT TISSUE DISORDERS Assessment/Plan 25 y/o AA female admitted with Hyperglycemia , DKA and the finding of swollen right lower extremity, especially the thigh. The patient has ESRDon HD. Blood glucose in better range. Receiving PRBC Transfusion. UF goal at 5 KG. Orders for HD reviewed with the RN. Concur with the current management. Susie Peter MD
[2016-08-10] MEDS ORDERED: INSULIN (NOVOLOG) ASPART 100 UNITS/ML 10ML VIAL ONE (11:08)
[2016-08-10] MEDS: ASPIRIN 325 MG TABLET PO SCH (11:14)
[2016-08-10] MEDS: CINACALCET HCL 30 MG TAB (FP) PO SCH (11:14)
[2016-08-10] MEDS: INSULIN DETEMIR 100 UNITS/ML MDV SQ SCH ×2 (11:15→22:13)
[2016-08-10] MEDS: SENNOSIDES 8.6MG TABLET (FP) PO SCH ×2 (11:15→11:20)
[2016-08-10] MEDS: DOCUSATE SODIUM 100 MG CAPSULE (FP) PO PRN (11:34)
[2016-08-10] MEDS ORDERED: POLYETHYLENE GLYCOL 3350 119 GM BTL PO PRN (12:30)
[2016-08-10] MEDS: CHLORHEXIDINE GLUCONATE 4% CLEANSER FOR DECOLONIZATION TP SCH (22:13)
[2016-08-11] MEDS: oxyCODONE HCL 5 MG TABLET PO PRN ×3 (00:24→11:00)
[2016-08-11] MEDS: ACETAMINOPHEN 325 MG TABLET (FP) PO PRN ×3 (00:25→11:01)
[2016-08-11] MEDS: hydrALAZINE HCL 25 MG TABLET (FP) PO SCH ×2 (06:22→14:18)
[2016-08-11] MEDS: GABAPENTIN 100 MG CAPSULE (FP) PO SCH ×2 (06:22→14:18)
[2016-08-11] MEDS: cloNIDine HCL 0.1 MG TABLET PO SCH ×2 (06:22→14:18)
[2016-08-11] MEDS: INSULIN SLIDING SCALE (NOVOLOG) 1 VIAL SQ SCH ×2 (06:23→11:41)
[2016-08-11] MEDS: LABETALOL HCL 200 MG TABLET (FP) PO SCH ×2 (06:24→14:18)
[2016-08-11] MEDS: SEVELAMER CARBONATE 800 MG TAB (FP) PO SCH ×2 (09:26→11:04)
[2016-08-11] MEDS: ASPIRIN 325 MG TABLET PO SCH (09:26)
[2016-08-11] MEDS: LOSARTAN POTASSIUM 25 MG TABLET PO SCH (09:26)
[2016-08-11] MEDS: NIFEdipine E.R. 30 MG TABLET (FP) PO SCH (09:26)
[2016-08-11] MEDS: CINACALCET HCL 30 MG TAB (FP) PO SCH (09:26)
[2016-08-11] MEDS: INSULIN DETEMIR 100 UNITS/ML MDV SQ SCH (09:28)
--- NOTE | 2016-08-11 10:48 | DS ---
Physical Examination Vital Signs: Vital Signs Temperature 98.4 F 08/11/16 06:00 Pulse Rate 89 08/11/16 06:00 Respiratory Rate 20 08/11/16 06:00 Blood Pressure 130/72 08/11/16 06:00 O2 Sat by Pulse Oximetry (%) 95 08/10/16 21:00 Constitutional: Yes: No Distress Cardiovascular: Yes: Regular Rate and Rhythm Respiratory: Yes: CTA Bilaterally Gastrointestinal: Yes: Normal Bowel Sounds, Soft. No: Distention, Tenderness Extremities: Yes: Other (tender right leg) Edema: Yes Edema: RLE: 1+ Labs: CBC, BMP 08/10/16 07:10 08/10/16 07:10 Discharge Summary Reason For Visit: TYPE I DM,HYPERKALEMIA Current Active Problems DKA, type 1 (Acute) Diabetes mellitus, insulin dependent (IDDM), uncontrolled (Acute) Leukocytosis (Acute) Swelling of right lower extremity (Acute) ESRD (end stage renal disease) on dialysis (Chronic) Hospital Course: Admission history Pt examined in ICU Was on insulin drip for DKA. Discontinued early AM . She was admitted here recently for similar reason. She states that she did not follow up with her panama hat blocker after discharge. Was checking her BGM-- showed as High. Feeling weak and tired, she did not miss her dialysis. Known to be non compliant with diet control and fluids. Today feeling better Denies abd pain Has constant pain in right leg-- chronic pain -- multiple work up has been done for her leg pain Hospitalization Course she was transferred from ICU to medical floor as her anion gap closed Seen by Renal and Endocrinology-- sugars are better She has persistent right leg pain -- CT scan showed edema right leg -- seen by [facility] surgeon recommended Rt inguinal LN biopsy -- since she was on ASA, last dose was today -- she needs to be off ASA for 5 days prior to biopsy She is scheduled to get biopsy on 08/18- spoke with pt who is in agreement stable for dc home- I have sent percocet to pharmacy for pain control -- HCS verified Condition: Improved - Instructions Diet, Activity, Other Instructions: RIGHT groin lymph node biopsy on August 18 -- at 9:30 AM -- go to registration Referrals: Edna Calero MD [Primary Care Provider] - Disposition: HOME - Home Medications Comprehensive Discharge Medication List: Ambulatory Orders Oxycodone HCl/Acetaminophen [Percocet 5-325 mg Tablet] 1 tab PO Q6H PRN #10 tablet MDD 4 11/11/15 Gabapentin 100 mg PO TID 03/11/16 Mupirocin Cream [Bactroban 2% Cream -] 1 applic TP BID #1 tube 05/07/16 Clonidine HCl [Catapres -] 0.3 mg PO TID #90 tablet 07/14/16 Hydralazine HCl [Apresoline -] 25 mg PO TID #60 tablet 07/14/16 Insulin (Levemir) [Levemir Vial] 25 units SQ DAILY@0700 #30 ml 07/14/16 Labetalol HCl [Normodyne -] 200 mg PO TID #90 tablet 07/14/16 Losartan Potassium [Cozaar -] 25 mg PO DAILY #30 tablet 07/14/16 Sevelamer Carbonate [Renvela -] 1,600 mg PO TIDCM #60 tab 07/14/16 Aspirin [ASA -] 325 mg PO DAILY 08/05/16 Cinacalcet HCl [Sensipar] 60 mg PO DAILY 08/05/16 Diphenhydramine [Benadryl -] 50 mg PO HS 08/05/16 Insulin Lispro [Humalog Kwikpen U-100] 0 unit SQ ASDIR 08/05/16 Nifedipine [Procardia Xl] 30 mg PO TID 08/05/16 Sennosides [Senna] 8.6 mg PO DAILY 08/05/16
[2016-08-11] MEDS: SENNOSIDES 8.6MG TABLET (FP) PO SCH ×2 (11:04→11:06)
[2016-08-11 13:06] VITALS: BP 146/87; PULSE 87; TEMP 98.6
--- NOTE | 2016-08-11 13:27 | PN ---
Progress Note (short form) - Note Progress Note: Renal follow up for ESRD on HD Pt seen and examined at the bedside s/p dialysis yesterday with 5kg UF for discharge home today has swelling in legs still Vital Signs Temperature 98.6 F 08/11/16 10:00 Pulse Rate 87 08/11/16 10:00 Respiratory Rate 20 08/11/16 10:00 Blood Pressure 146/87 08/11/16 10:00 O2 Sat by Pulse Oximetry (%) 95 08/10/16 21:00 Intake & Output 08/08/16 08/09/16 08/10/16 08/11/16 23:59 23:59 23:59 23:59 Intake Total 1570 1190 1545 650 Balance 1570 1190 1545 650 Weight 147 lb 3.2 oz 140 lb 7 oz Gen: NAD CVS: RRR, No M/R Lungs: CTA Abd: soft NT/ND Ext: 1+ LE edema R>L CBC, BMP 08/10/16 07:10 08/10/16 07:10 Laboratory Tests 07/13/16 08/10/16 07:00 07:10 Calcium 8.5 7.7 L Phosphorus 6.9 H D Albumin 2.6 L 2.3 L Current Medications Acetaminophen (Tylenol -) 650 mg PO Q4H PRN Last Admin: 08/11/16 11:01 Dose: 650 mg Aspirin (Asa -) 325 mg PO DAILY [facility] Last Admin: 08/11/16 09:26 Dose: 325 mg Chlorhexidine Gluconate (Hibiclens For Decolonization -) 1 applic TP HS [facility] Last Admin: 08/10/16 22:13 Dose: Not Given Cinacalcet (Sensipar -) 60 mg PO DAILY [facility] Last Admin: 08/11/16 09:26 Dose: 60 mg Clonidine (Catapres -) 0.3 mg PO TID [facility] Last Admin: 08/11/16 06:22 Dose: 0.3 mg Docusate Sodium (Colace -) 100 mg PO BID PRN PRN Reason: CONSTIPATION Last Admin: 08/10/16 11:34 Dose: 100 mg Gabapentin (Neurontin -) 100 mg PO TID [facility] Last Admin: 08/11/16 06:22 Dose: 100 mg Hydralazine HCl (Apresoline -) 25 mg PO TID [facility] Last Admin: 08/11/16 06:22 Dose: 25 mg Insulin Aspart (Novolog Vial Sliding Scale -) 1 vial SQ ACHS [facility] PRN Reason: Protocol Last Admin: 08/11/16 11:41 Dose: Not Given Insulin Detemir (Levemir Vial) 10 units SQ BID [facility] Last Admin: 08/11/16 09:28 Dose: 10 units Labetalol HCl (Normodyne -) 200 mg PO TID [facility] Last Admin: 08/11/16 06:24 Dose: 200 mg Losartan Potassium (Cozaar -) 25 mg PO DAILY [facility] Last Admin: 08/11/16 09:26 Dose: 25 mg Nifedipine (Procardia Xl -) 30 mg PO DAILY [facility] Last Admin: 08/11/16 09:26 Dose: 30 mg Oxycodone HCl (Roxicodone -) 10 mg PO Q4H PRN Last Admin: 08/11/16 11:00 Dose: 10 mg Polyethylene Glycol (Miralax (For Daily Use) -) 17 gm PO DAILY PRN Last Admin: 08/10/16 13:28 Dose: 17 gm Senna (Senna -) 1 tab PO DAILY [facility] Last Admin: 08/11/16 11:06 Dose: Not Given Sevelamer Carbonate (Renvela -) 1,600 mg PO TIDCM [facility] Last Admin: 08/11/16 11:04 Dose: 1,600 mg A/P 5 year old woman well known to our service with PMhx of ESRD on HD, IDDM, PVD who presented with tachycardia/low BP from HD unit and found to have Hyperkalemia and DKA. #ESRD on HD with Hyperkalemia (no ekg changes) s/p dialysis yesterday no acute indication for dialysis today to resume dialysis as outpatient tomorrow importance of compliance with potassium/salt and fluid restriction explained to her #Inguinal LN for outpatient biopsy next week Thank you Nathan Vo DO
[2016-08-12 00:06] LABS: HEP B SURFACE AB Reactive (.)
== END 2016-08-11 15:43 | disposition home or self-care (01) | DRG 637 ==
LOC: JER 11:25 → JERBED 13:14 → JICU 15:04 → J5S 08-07 14:27
PROVIDERS: ADMIT Internal Medicine; ATTEND Internal Medicine
PROC: 30253N1 (ICD-10-PCS; 2016-08-07)
PROC: 5A1D60Z (ICD-10-PCS; principal; 2016-08-10)
DX: E10.10 Type 1 diabetes mellitus with ketoacidosis without coma (principal); N18.6 End stage renal disease; I12.0 Hypertensive chronic kidney disease with stage 5 chronic kidney disease or end stage renal disease; E87.1 Hypo-osmolality and hyponatremia; Z79.4 Long term (current) use of insulin; E10.22 Type 1 diabetes mellitus with diabetic chronic kidney disease; Z99.2 Dependence on renal dialysis; D63.1 Anemia in chronic kidney disease; E87.70 Fluid overload, unspecified; K59.00 Constipation, unspecified; E87.5 Hyperkalemia; E10.40 Type 1 diabetes mellitus with diabetic neuropathy, unspecified; Z91.14 Patient's other noncompliance with medication regimen
CPT/HCPCS: 36415; 36430; 71010-TC; 73700-TC-RT; 80048; 80053; 82009; 82550; 82553; 82803; 82977; 83036; 83605; 83735; 84100; 84484; 84703; 85025; 85027; 85610; 85651; 85730; 86140; 86704; 86706; 86708; 86850; 86900; 86901; 86922; 87040; 87340; 93005; 93010; 93970-TC; 99285-25; J0885; P9038; P9058

== ENCOUNTER 2016-08-19 14:27 | Inpatient (IN) | payer OTHER ==
[2016-08-19 17:28] LABS: BASOPHIL 0.3 % (0-2.0); EOSINOPHIL 0.2 % (0-4.5); MCH 23.8 pg (25.7-33.7); MCHC 29.2 g/dl (32.0-36.0); MEAN CELL VOLUME 81.5 fl (80-96); MEAN PLT VOLUME 8.5 fl (7.5-11.1); NEUTROPHILS 86.8 % (42.8-82.8); PLATELET COUNT 540 K/MM3 (134-434); RDW 18.3 % (11.6-15.6)
[2016-08-19 17:46] LABS: INR 1.32 (0.82-1.09); PROTHROMBIN TIME (PATIENT) 14.6 SEC (9.98-11.88)
[2016-08-19 17:47] LABS: VENOUS PH 7.21 (7.32-7.42)
[2016-08-19] MEDS ORDERED: morphine CARPU-JECT 4 MG/1 ML DISP.SYRIN IVPUSH ONE ×2 (17:47→18:08)
[2016-08-19 17:48] LABS: VENOUS BLOOD GAS HCO3 13.5 meq/L (19-25)
[2016-08-19 17:49] LABS: ACTIVATED PTT 34.4 SECONDS (26.9-34.4)
[2016-08-19] MEDS ORDERED: morphine CARPU-JECT 4 MG/1 ML DISP.SYRIN ONE ×2 (17:52→19:00)
[2016-08-19 17:55] LABS: ALBUMIN 2.7 g/dl (3.4-5.0); ANION GAP 28 (8-16); BILIRUBIN,TOTAL 0.7 mg/dL (0.2-1.0); CALCIUM 8.6 mg/dL (8.5-10.1); CO2 12 mmol/L (21-32); COCKROFT - GAULT 13.8295; CREATININE 6.4 mg/dL (0.55-1.02); MAGNESIUM 2.5 mg/dL (1.8-2.4); PHOSPHOROUS 4.9 mg/dL (2.5-4.9); SGOT/AST 21 U/L (15-37); SGPT/ALT 13 U/L (12-78); TOT PROT 8.5 g/dl (6.4-8.2)
[2016-08-19 18:07] LABS: ALK PHOS 937 U/L (45-117); TROPONIN I < 0.02 ng/ml (0.00-0.05)
--- NOTE | 2016-08-19 18:08 | PDOC ---
History of Present Illness - General History Source: Patient, Old Records Exam Limitations: No Limitations <Nasreen Menon - Last Filed: 08/19/16 18:50> - History of Present Illness Initial Comments: 08/19/16 18:18 Patient is a 25 year old female with significant medical hx of anemia, IDDM, ESRD (hemodialysis MWF), HTN, DVT, and PE (on coumadin), myosistis, osteomyelitis (right 5th digit surgery), who is presenting to the ED with epigastric pain since yesterday. Patient was seen in the ED yesterday for epigastric pain, nausea, and diarrhea. She had been sent to the [facility] yesterday for BGL of 511 while receiving a biopsy of a lymph node. Yesterday the patient was found to be in DKA and she decided to sign out AMA. Patient has a secondary complaint of right leg pain with some swelling which she reports is chronic. Allergies: NKDA Surgical Hx: Myxoma removed 2013 Right foot ulcer surgery, Lft upper extremity fistula Social Hx: Denies ETOH or illicit drug use. PCP: Edna Calero MD Control Tower Operator: Nathan Vo MD <Harika Emmanuel - Last Filed: 08/19/16 22:53> - General Chief Complaint: Pain Stated Complaint: PAIN Time Seen by Provider: 08/19/16 16:14 Past History - Past Medical History Anemia: Yes Asthma: No Cancer: No Cardiac Disorders: No CVA: No COPD: No CHF: No Diabetes: Yes (15 yrs Insulin dependent) Dialysis: Yes (M/W/F) Disorders: Yes (ESRD for 6 yrs [facility] m-w-) HTN: Yes Hypercholesterolemia: No Kidney Stones: (ESRD, Dialysis Mon, W, F, Left arm Fistula) Suicide Attempt (Hx): No Seizures: Yes (Several yrs ago, no medication) Thyroid Disease: No - Surgical History Abdominal Surgery: No Cardiac Surgery: Yes (myxoma removed 2013) Cholecystectomy: Yes Lung Surgery: No Neurologic Surgery: No Orthopedic Surgery: Yes - Immunization History Immunization Up to Date: Yes - Psycho/Social/Smoking Cessation Hx Anxiety: No Suicidal Ideation: No Smoking Status: No Smoking History: Never smoked Have you smoked in the past 12 months: No Number of Cigarettes Smoked Daily: 10 Information on smoking cessation initiated: No Hx Alcohol Use: No Drug/Substance Use Hx: No Substance Use Type: None Hx Substance Use Treatment: No <Nasreen Menon - Last Filed: 08/19/16 18:50> <Harika Emmanuel - Last Filed: 08/19/16 22:53> - Past Medical History Allergies/Adverse Reactions: Allergies Allergy/AdvReac Type Severity Reaction Status Date / Time No Known Drug Allergies Allergy Verified 08/19/16 14:39 Home Medications: Ambulatory Orders Gabapentin 100 mg PO TID 03/11/16 Mupirocin Cream [Bactroban 2% Cream -] 1 applic TP BID #1 tube 05/07/16 Clonidine HCl [Catapres -] 0.3 mg PO TID #90 tablet 07/14/16 Hydralazine HCl [Apresoline -] 25 mg PO TID #60 tablet 07/14/16 Labetalol HCl [Normodyne -] 200 mg PO TID #90 tablet 07/14/16 Losartan Potassium [Cozaar -] 25 mg PO DAILY #30 tablet 07/14/16 Sevelamer Carbonate [Renvela -] 1,600 mg PO TIDCM #60 tab 07/14/16 Cinacalcet HCl [Sensipar] 60 mg PO DAILY 08/05/16 Diphenhydramine [Benadryl Capsule -] 50 mg PO HS 08/05/16 Nifedipine [Procardia Xl] 30 mg PO TID 08/05/16 Sennosides [Senna] 8.6 mg PO DAILY 08/05/16 Insulin (Levemir) [Levemir Flexpen -] 10 units SQ BID #5 pen 08/11/16 Insulin Lispro [Humalog Kwikpen U-100] 1 unit SQ TID #2 units 08/11/16 Oxycodone HCl/Acetaminophen [Percocet 5-325 mg Tablet] 1 tab PO Q6H PRN #60 tablet MDD 4 08/11/16 Tramadol HCl 50 mg PO PRN PRN 08/17/16 Review of Systems - Review of Systems Comments:: 08/19/16 18:18 GENERAL/CONSTITUTIONAL: No fever or chills. No weakness. HEAD, EYES, EARS, NOSE AND THROAT: No change in vision. No ear pain or discharge. No sore throat. CARDIOVASCULAR: No chest pain or shortness of breath. RESPIRATORY: No cough, wheezing, or hemoptysis. GASTROINTESTINAL: Epigastric pain. No nausea, vomiting, diarrhea or constipation. GENITOURINARY: No dysuria, frequency, or change in urination. MUSCULOSKELETAL: Right lower extremity pain and swelling. No neck or back pain. ENDOCRINE: No increased thirst. No abnormal weight change. SKIN: No rash NEUROLOGIC: No headache, vertigo, loss of consciousness, or change in strength/ sensation. <Harika Emmanuel - Last Filed: 08/19/16 22:53> *Physical Exam - Vital Signs Last Vital Signs Temp Pulse Resp BP Pulse Ox 98.2 F 82 20 137/70 97 08/19/16 14:39 08/19/16 14:39 08/19/16 14:39 08/19/16 14:39 08/19/16 14:39 <Nasreen Menon - Last Filed: 08/19/16 18:50> - Vital Signs Last Vital Signs Temp Pulse Resp BP Pulse Ox 98.2 F 82 20 137/70 97 08/19/16 14:39 08/19/16 14:39 08/19/16 14:39 08/19/16 14:39 08/19/16 14:39 - Physical Exam Comments: 08/19/16 18:19 GENERAL: Awake, alert, and fully oriented, in no acute distress HEAD: No signs of trauma EYES: PERRLA, EOMI, sclera anicteric, conjunctiva clear ENT: Auricles normal inspection, hearing grossly normal, nares patent, oropharynx clear without exudates. Moist mucosa NECK: Normal ROM, supple, no lymphadenopathy, JVD, or masses LUNGS: Breath sounds equal, clear to auscultation bilaterally. No wheezes, and no crackles HEART: Regular rate and rhythm, normal S1 and S2, no murmurs, rubs or gallops ABDOMEN: Soft, mild epigastric tenderness, normoactive bowel sounds. No guarding, no rebound. No masses EXTREMITIES: RLE bigger than LLE. Normal range of motion. No clubbing or cyanosis. No cords, erythema, or tenderness NEUROLOGICAL: Cranial nerves II through XII grossly intact. Normal speech, normal gait SKIN: Warm, Dry, normal turgor, no rashes or lesions noted. HEMATOLOGIC/LYMPHATIC: No anemia, easy bleeding, or history of blood clots. ALLERGIC/IMMUNOLOGIC: No hives or skin allergy. <Harika Emmanuel - Last Filed: 08/19/16 22:53> ED Treatment Course - LABORATORY CBC & Chemistry Diagram: 08/19/16 17:15 08/19/16 17:15 - ADDITIONAL ORDERS Additional order review: Laboratory Results 08/19/16 08/19/16 17:30 17:15 INR 1.32 H PTT (Actin FS) 34.4 VBG pH 7.21 L* POC VBG pCO2 35.3 L D POC VBG pO2 39.0 D Mixed VBG HCO3 13.5 L* 08/19/16 17:15 RBC 3.26 L MCV 81.5 MCHC 29.2 L RDW 18.3 H MPV 8.5 Neutrophils % 86.8 H Lymphocytes % 3.6 L Monocytes % 9.1 Eosinophils % 0.2 Basophils % 0.3 - RADIOLOGY Radiology Studies Ordered: Category Date Time Status CHEST X-RAY PORTABLE* [RAD] Stat Radiology 08/19/16 16:15 Completed - Medications Given in the ED: ED Medications Discontinued Medications Generic Name Dose Route Start Last Admin Trade Name Jdq PRN Reason Stop Dose Admin Morphine Sulfate 4 mg 08/19/16 17:47 08/19/16 17:53 Morphine Injection - IVPUSH 08/19/16 17:48 4 mg ONCE ONE Administration <Nasreen Menon - Last Filed: 08/19/16 18:50> - LABORATORY CBC & Chemistry Diagram: 08/19/16 17:15 08/19/16 17:15 - ADDITIONAL ORDERS Additional order review: Laboratory Results 08/19/16 08/19/16 17:30 17:15 INR 1.32 H PTT (Actin FS) 34.4 VBG pH 7.21 L* POC VBG pCO2 35.3 L D POC VBG pO2 39.0 D Mixed VBG HCO3 13.5 L* 08/19/16 17:15 RBC 3.26 L MCV 81.5 MCHC 29.2 L RDW 18.3 H MPV 8.5 Neutrophils % 86.8 H Lymphocytes % 3.6 L Monocytes % 9.1 Eosinophils % 0.2 Basophils % 0.3 - RADIOLOGY Radiograph Interpretation: 08/19/16 18:21 Chest X-Ray Impression: Limited study with bibasilar atelectasis. Reported By: Robb Castillo MD - Medications Given in the ED: ED Medications Discontinued Medications Generic Name Dose Route Start Last Admin Trade Name Jase PRN Reason Stop Dose Admin Morphine Sulfate 4 mg 08/19/16 17:47 08/19/16 17:53 Morphine Injection - IVPUSH 08/19/16 17:48 4 mg ONCE ONE Administration <Harika Emmanuel - Last Filed: 08/19/16 22:53> Medical Decision Making - Medical Decision Making 08/19/16 18:51 25-year-old female with history of hypertension, diabetes, end-stage renal diseaseon hemodialysis Wednesday last dialyzed on Wednesday seen in the ED yesterday with some abdominal pain and found to be in DKA returns today with same complaints. Differential diagnosis includes but is not limited to: DKA , hyperkalemia, dehydration, electrolyte abnormality, toxic/metabolic derangement. Plan: 1. Labs 2. Glycemic control 3. ICU and admission if the patient is in DKA 4. Renal consult 5. Observe and reevaluate Addendum: Labs were reviewed and are noted in the EMR. The anion gap is 28 and the glucose is 557. The potassium is 6.6 but the EKG shows no signs of hyperkalemia that is there are no peaked T waves. The patient has been started on an insulin drip. I have also ordered bicarbonate and Kayexalate for her. I have discussed the case with the seal delivery vehicle officer. The plan is to admit to the ICU for DKA and monitored the potassium with no emergent dialysis at this time. I have also discussed the case with the it applications manager. <Nasreen Menon - Last Filed: 08/19/16 18:50> - Critical Care Time Total Critical Care Time (minutes): 31 Critical Care Statement: The care of this patient involved high complexity decision making to prevent further life threatening deterioration of the patient 's condition and/or to evalute & treat vital organ system(s) failure or risk of failure. <Harika Emmanuel - Last Filed: 08/19/16 22:53> *DC/Admit/Observation/Transfer - Discharge Dispostion Admit: Yes - Attestations Physician Attestion: 08/19/16 18:50 I, Dr. Nasreen Menon, attest that the scribes documentation that appears above has been prepared under my direction and personally reviewed by me in its entirety. I confirmed that the note above accurately reflects all work, treatment, procedures, and medical decision-making performed by me. <Nasreen Menon - Last Filed: 08/19/16 18:50> - Attestations Scribe Attestion: 08/19/16 18:20 Documentation prepared by Harika Emmanuel, acting as medical device sales for Nasreen Menon MD. <Harika Emmanuel - Last Filed: 08/19/16 22:53> Diagnosis at time of Disposition: DKA (diabetic ketoacidosis), Hyperkalemia, Leg pain, right - Discharge Dispostion Condition at time of disposition: Stable - Referrals
[2016-08-19 18:27] LABS: GLUCOSE,RANDOM 557 mg/dL (74-106)
[2016-08-19] MEDS ORDERED: INSULIN REGULAR HUMAN 100 UNITS/ML *VIAL SQ ONE (18:29)
[2016-08-19] MEDS ORDERED: INSULIN REGULAR 100 UNITS in SODIUM CHLORIDE 99 ML IVPB SCH (18:30)
[2016-08-19] MEDS ORDERED: SODIUM BICARBONATE 8.4% 50 MEQ/50 ML VIAL IV ONE (18:31)
[2016-08-19] MEDS ORDERED: INSULIN REGULAR HUMAN 100 UNITS/ML *VIAL IVPUSH ONE (18:31)
[2016-08-19] MEDS ORDERED: SODIUM POLYSTYRENE SULFONATE 15 GM/60 ML BOTTLE PO ONE (18:33)
[2016-08-19] MEDS ORDERED: SODIUM POLYSTYRENE SULFONATE 15 GM/60 ML BOTTLE ONE (19:00)
[2016-08-19] MEDS ORDERED: SODIUM BICARBONATE 8.4% - 50 ML ONE (19:00)
[2016-08-19] MEDS ORDERED: HYDROmorphone HCL CARPU-JECT 1 MG/1 ML DISP.SYRIN IVPUSH ONE (19:16)
[2016-08-19] MEDS ORDERED: HYDROmorphone HCL CARPU-JECT 1 MG/1 ML DISP.SYRIN ONE (19:36)
[2016-08-19 23:00] LABS: CALCIUM 8.5 mg/dL (8.5-10.1); COCKROFT - GAULT 13.4045; CREATININE 6.6 mg/dL (0.55-1.02)
[2016-08-19] MEDS ORDERED: SODIUM CHLORIDE 0.45% 1,000 ML IV SCH (23:30)
[2016-08-19 23:42] VITALS: BMI 23.1
--- NOTE | 2016-08-20 00:13 | CONSULT ---
Consult Consult Specialty:: Pulmonary Critical Care Reason for Consultation:: DKA - History of Present Illness Chief Complaint: DKA History of Present Illness: Patient is a 25 year old female with significant medical hx of anemia, IDDM, ESRD (hemodialysis MWF), HTN, DVT, and PE (on coumadin), myositis, osteomyelitis (right 5th digit surgery), who is presented to the ED with epigastric pain since yesterday. Patient was seen in the ED yesterday for epigastric pain, nausea, and diarrhea. She had been sent to the ED from the [facility] yesterday for BGL of 511 while receiving a biopsy of a lymph node however she decided to sign out AMA. Patient has a secondary complaint of right leg pain with some swelling which she reports is chronic. Of note pt did not attend her dialysis session today as she felt she would not have been able to tolerate it secondary to increased leg pain. - History Source History Provided By: Patient - Past Medical History Cardio/Vascular: Yes: CHF, HTN, Other (thrombus in heart per echo 11/2013; ? subclavian vein thromboses s/p dialysis catheters in the past) Pulmonary: Yes: Pulmonary Embolus Renal/: Yes: Renal Failure, Hemodialysis ...LMP: 08/17/14 Infectious Disease: Yes: MRSA (history of bacteremia, recent mrsa foot abscess) Endocrine: Yes: Diabetes Mellitus (type 1 on insulin pump) Additional Medical History: DVT, PE on coumadin - Past Surgical History Past Surgical History: Yes: AV Fistula/Graft (Right arm) - Alcohol/Substance Use Hx Alcohol Use: No History of Substance Use: reports: None - Smoking History Smoking history: Never smoked Have you smoked in the past 12 months: No Aproximately how many cigarettes per day: 10 - Social History Usual Living Arrangement: With Parent ADL: Independent Occupation: unemployed History of Recent Travel: No Home Medications - Allergies Allergies/Adverse Reactions: Allergies Allergy/AdvReac Type Severity Reaction Status Date / Time No Known Drug Allergies Allergy Verified 08/19/16 14:39 - Home Medications Home Medications: Ambulatory Orders Gabapentin 100 mg PO TID 03/11/16 Mupirocin Cream [Bactroban 2% Cream -] 1 applic TP BID #1 tube 05/07/16 Clonidine HCl [Catapres -] 0.3 mg PO TID #90 tablet 07/14/16 Hydralazine HCl [Apresoline -] 25 mg PO TID #60 tablet 07/14/16 Labetalol HCl [Normodyne -] 200 mg PO TID #90 tablet 07/14/16 Losartan Potassium [Cozaar -] 25 mg PO DAILY #30 tablet 07/14/16 Sevelamer Carbonate [Renvela -] 1,600 mg PO TIDCM #60 tab 07/14/16 Cinacalcet HCl [Sensipar] 60 mg PO DAILY 08/05/16 Diphenhydramine [Benadryl Capsule -] 50 mg PO HS 08/05/16 Nifedipine [Procardia Xl] 30 mg PO TID 08/05/16 Sennosides [Senna] 8.6 mg PO DAILY 08/05/16 Insulin (Levemir) [Levemir Flexpen -] 10 units SQ BID #5 pen 08/11/16 Insulin Lispro [Humalog Kwikpen U-100] 1 unit SQ TID #2 units 08/11/16 Oxycodone HCl/Acetaminophen [Percocet 5-325 mg Tablet] 1 tab PO Q6H PRN #60 tablet MDD 4 08/11/16 Tramadol HCl 50 mg PO PRN PRN 08/17/16 Family Disease History - Family Disease History Family Disease History: Diabetes: Grandparent (HTN), Heart Disease: Grandparent , Other: Father (unknown), Mother (HTN) Review of Systems - Review of Systems Constitutional: reports: No Symptoms. denies: Chills, Diaphoresis, Fever Eyes: reports: No Symptoms. denies: Blind Spots, Blurred Vision HENT: reports: No Symptoms. denies: Difficult Swallowing, Ear Discharge, Ear Pain, Hearing Loss Neck: reports: No Symptoms. denies: Decreased ROM, Lumps, Pain on Movement Cardiovascular: reports: No Symptoms. denies: Chest Pain, Edema, Palpitations, Shortness of Breath Respiratory: denies: Cough, Hemoptysis Gastrointestinal: reports: Abdominal Pain, Constipation, Nausea. denies: Vomiting Genitourinary: reports: No Symptoms Breasts: reports: No Symptoms Reported Musculoskeletal: reports: Extremity Pain (RLE), Muscle Pain (R thigh) Integumentary: reports: Change in Color (RLE darker when compared to Left) Neurological: reports: No Symptoms. denies: Change in LOC, Change in Speech, Confusion, Dizziness Endocrine: denies: Excessive Sweating, Flushing, Increased Thirst Hematology/Lymphatic: reports: No Symptoms Physical Exam Vital Signs: Vital Signs Temperature 99.3 F 08/19/16 23:19 Pulse Rate 92 H 08/19/16 23:19 Respiratory Rate 18 08/19/16 23:19 Blood Pressure 183/105 08/19/16 23:19 O2 Sat by Pulse Oximetry (%) 100 08/19/16 22:45 Constitutional: Yes: No Distress, Calm Eyes: Yes: WNL, Conjunctiva Clear, EOM Intact, PERRL HENT: Yes: WNL, Atraumatic, Normocephalic Neck: Yes: Supple, Trachea Midline Cardiovascular: Yes: Regular Rate and Rhythm, Murmur, S1, S2. No: Gallop, Rub Respiratory: Yes: Regular, CTA Bilaterally. No: Rales, Rhonchi, SOB Gastrointestinal: Yes: Normal Bowel Sounds, Soft, Abdomen, Obese, Distention, Hepatomegaly. No: Tenderness, Tenderness, Epigastrium, Tenderness, Rebound ...Rectal Exam: Yes: Deferred Musculoskeletal: Yes: Muscle Pain (R thigh) Extremities: Yes: Other (R thigh circumference significantly larger than Left; R thigh skin color darker in appearance when compared to left; Left thigh soft and non-tender and normothermic to touch; R thigh warm to touch) Edema: Yes (RLE) Edema: LLE: Trace, RLE: 2+ Peripheral Pulses WNL: Yes ((+)bruit and thrill to LUE fistula) Integumentary: Yes: Body Piercing (Earings), Venous Stasis Changes (RLE) Neurological: Yes: WNL, Alert, Oriented, Cran Nerves II-XII Intact ...Motor Strength: WNL Labs: CBC, BMP 08/19/16 22:10 CBCD WBC 11.0 K/mm3 (4.0-10.0) H 08/19/16 17:15 RBC 3.26 M/mm3 (3.60-5.2) L 08/19/16 17:15 Hgb 7.7 GM/dL (10.7-15.3) L 08/19/16 17:15 Hct 26.6 % (32.4-45.2) L 05/17/17 17:15 MCV 81.5 fl (80-96) 08/19/16 17:15 MCHC 29.2 g/dl (32.0-36.0) L 08/19/16 17:15 RDW 18.3 % (11.6-15.6) H 08/19/16 17:15 Plt Count 540 K/MM3 (134-434) H 08/19/16 17:15 MPV 8.5 fl (7.5-11.1) 08/19/16 17:15 CMP Sodium 130 mmol/L (136-145) L 08/19/16 22:10 Potassium 5.6 mmol/L (3.5-5.1) H 08/19/16 22:10 Chloride 90 mmol/L (98-107) L 08/19/16 22:10 Carbon Dioxide 16 mmol/L (21-32) L D 08/19/16 22:10 Anion Gap 24 (8-16) H 08/19/16 22:10 BUN 53 mg/dL (7-18) H 08/19/16 22:10 Creatinine 6.6 mg/dL (0.55-1.02) H 08/19/16 22:10 Creat Clearance w eGFR 7.87 (>60) 08/19/16 17:15 Random Glucose 477 mg/dL (74-106) H* 08/19/16 22:10 Calcium 8.5 mg/dL (8.5-10.1) 08/19/16 22:10 Total Bilirubin 0.7 mg/dL (0.2-1.0) 08/19/16 17:15 AST 21 U/L (15-37) 08/19/16 17:15 ALT 13 U/L (12-78) 08/19/16 17:15 Alkaline Phosphatase 937 U/L (45-117) H 08/19/16 17:15 Total Protein 8.5 g/dl (6.4-8.2) H 08/19/16 17:15 Albumin 2.7 g/dl (3.4-5.0) L 08/19/16 17:15 CARDIAC ENZYMES Creatine Kinase 539 IU/L (26-192) H 08/19/16 17:15 Troponin I < 0.02 ng/ml (0.00-0.05) 08/19/16 17:15 Imaging - Results Chest X-ray: Report Reviewed, Image Reviewed (Poor inspiratory result; Bibasilar atelectasis) Problem List - Problems (1) DKA (diabetic ketoacidosis) Code(s): E13.10 - OTH DIABETES MELLITUS WITH KETOACIDOSIS WITHOUT COMA (2) Leg pain, right Code(s): M79.604 - PAIN IN RIGHT LEG (3) Leukocytosis Code(s): D72.829 - ELEVATED WHITE BLOOD CELL COUNT, UNSPECIFIED (4) Hyperkalemia Code(s): E87.5 - HYPERKALEMIA (5) Abdominal pain Code(s): R10.9 - UNSPECIFIED ABDOMINAL PAIN (6) DKA, type 1 Code(s): E10.10 - TYPE 1 DIABETES MELLITUS WITH KETOACIDOSIS WITHOUT COMA (7) Diabetes mellitus, insulin dependent (IDDM), uncontrolled Code(s): E10.65 - TYPE 1 DIABETES MELLITUS WITH HYPERGLYCEMIA Qualifiers: Diabetes mellitus complication status: with unspecified complications Qualified Code(s): E10.8 - Type 1 diabetes mellitus with unspecified complications; E10.65 - Type 1 diabetes mellitus with hyperglycemia (8) Fluid overload Code(s): E87.70 - FLUID OVERLOAD, UNSPECIFIED Qualifiers: Hypervolemia type: unspecified Qualified Code(s): E87.70 - Fluid overload, unspecified (9) Hyperglycemia due to type 1 diabetes mellitus Code(s): E10.65 - TYPE 1 DIABETES MELLITUS WITH HYPERGLYCEMIA (10) ESRD (end stage renal disease) on dialysis Code(s): N18.6 - END STAGE RENAL DISEASE Z99.2 - DEPENDENCE ON RENAL DIALYSIS (11) HTN (hypertension) Code(s): I10 - ESSENTIAL (PRIMARY) HYPERTENSION Qualifiers: Hypertension type: essential hypertension Qualified Code(s): I10 - Essential (primary) hypertension Assessment/Plan A: Patient is a 25 year old female with significant medical hx of anemia, IDDM, ESRD (hemodialysis MWF), HTN, DVT, and PE (on coumadin), myositis, osteomyelitis (right 5th digit surgery), who presented to the ED with epigastric pain since yesterday diagnosed with DKA yesterday however signed out AMA. Pt returned to ED today for continued c/o abdominal pain and admitted to ICU for further medical care of her DKA. P: -Cont insulin gtt -Q1hr fsbs with goal ~200 -No IVf given on HD M/W/F -Consider renal consult in am for possible HD given pt missed her scheduled session yesterday -cont antibiotics -f/u cultures -will send ggt given elevated alk phos and normal bilis -hydromorphone 1mg IM q4hrs prn RLE pain -serial BMP's -SCD's -Consider steroids given elevated CPK and hx of myositis Thank you for this interesting consult. Pt is critically ill. CCT 45mins not including procedures
[2016-08-20] MEDS ORDERED: hydrALAZINE HCL 20 MG/ML VIAL ONE (00:33)
[2016-08-20] MEDS: HYDROmorphone HCL CARPU-JECT 1 MG/1 ML DISP.SYRIN IM PRN ×3 (00:55→20:25)
[2016-08-20] MEDS ORDERED: HYDROmorphone HCL CARPU-JECT 1 MG/1 ML DISP.SYRIN SQ ONE (03:44)
[2016-08-20 06:18] LABS: BASOPHIL 1.3 % (0-2.0); EOSINOPHIL 0.7 % (0-4.5); MCH 23.8 pg (25.7-33.7); MCHC 30.5 g/dl (32.0-36.0); MEAN CELL VOLUME 78.2 fl (80-96); MEAN PLT VOLUME 8.4 fl (7.5-11.1); NEUTROPHILS 77.4 % (42.8-82.8); PLATELET COUNT 524 K/MM3 (134-434); RDW 17.7 % (11.6-15.6); WHITE BLOOD COUNT 13.6 K/mm3 (4.0-10.0)
[2016-08-20] MEDS ORDERED: HYDROmorphone HCL CARPU-JECT 1 MG/1 ML DISP.SYRIN IVPUSH ONE (06:30)
[2016-08-20] MEDS ORDERED: INSULIN DETEMIR 100 UNITS/ML MDV SQ ONE (06:30)
[2016-08-20 06:40] LABS: ALBUMIN 2.5 g/dl (3.4-5.0); BILIRUBIN,DIRECT 0.2 mg/dL (0.0-0.2); CALCIUM 8.1 mg/dL (8.5-10.1); CREATININE 6.9 mg/dL (0.55-1.02); MAGNESIUM 2.2 mg/dL (1.8-2.4); PHOSPHOROUS 5.1 mg/dL (2.5-4.9); TOT PROT 7.4 g/dl (6.4-8.2)
[2016-08-20 06:41] LABS: BILIRUBIN,TOTAL 0.7 mg/dL (0.2-1.0)
[2016-08-20 07:14] LABS: COCKROFT - GAULT 12.648
[2016-08-20] MEDS ORDERED: oxyCODONE HCL 5 MG TABLET PO ONE (07:24)
[2016-08-20] MEDS ORDERED: ACETAMINOPHEN 325 MG TABLET (FP) PO ONE (07:30)
--- NOTE | 2016-08-20 09:10 | PN ---
Physical Exam: SUBJECTIVE: Patient seen and examined. c/o right thigh pain. This is a chronic pain she has had in the past, usually exacerbated when she is not dialized due to fluid overload. typically takes percocet at home for relief. received several doses of dilaudid and morphine since yesterday without prolonged relief or full resolution. says she did not go to her scheduled dialysis due to pain, and has not been taking her medications. OBJECTIVE: Vital Signs Period Temp Pulse Resp BP Sys/Ames Pulse Ox Last 24 Hr 98.4 F-99.3 F 88-92 18-26 140-183/85-105 100-100 GENERAL: The patient is awake, alert, and fully oriented, in mild distress due to right leg pain. HEAD: Normal with no signs of trauma. EYES: PERRL, extraocular movements intact, sclera anicteric, conjunctiva clear. No ptosis. ENT: Ears normal, nares patent, oropharynx clear without exudates, moist mucous membranes. NECK: Trachea midline, full range of motion, supple. LUNGS: Breath sounds equal, clear to auscultation bilaterally, no wheezes, no crackles, no accessory muscle use. HEART: Regular rate and rhythm, S1, S2 without murmur, rub or gallop. ABDOMEN: Soft, nontender, nondistended, normoactive bowel sounds, no guarding, no rebound, EXTREMITIES: 2+ pulses, warm, well-perfused, no edema, decreased sensation in b/ l dorsum of feet. Left upper extremity: palpable thrill in lue. right lower extremity: R thigh is larger than left, nontender, FROM at hip and knee, no edema, warm, skin intact without erythema, soft, 5/5 strength at at all joints, 2+ DP and popliteal pulses. dorsum of ankle with healing abrasion - no surrounding erythema, or discharge left lower extremity: FROM at hip, knee and ankle 5/5 strength, nontender, skin intact, soft, no edema, 2+ DP and popliteal [id number] toe and 3rd toe with ulcers - no discharge, no surrounding erythema. NEUROLOGICAL: Cranial nerves II through XII grossly intact. Normal speech. PSYCH: Normal mood, normal affect. SKIN: Warm, dry, normal turgor, scattered hyperpigmented spots in upper back and two areas of excoriated skin in b/l lower back without blood, pus or surrounding erythema. Laboratory Results - last 24 hr 08/19/16 08/19/16 08/19/16 21:03 22:10 23:05 WBC RBC Hgb Hct MCV MCHC RDW Plt Count MPV Neutrophils % Lymphocytes % Monocytes % Eosinophils % Basophils % Sodium 130 L Potassium 5.6 H Chloride 90 L Carbon Dioxide 16 L D Anion Gap 24 H BUN 53 H Creatinine 6.6 H POC Glucometer > [phone] Random Glucose 477 H* Calcium 8.5 Phosphorus Magnesium Total Bilirubin Direct Bilirubin GGT AST ALT Alkaline Phosphatase Creatine Kinase Total Protein Albumin 08/20/16 08/20/16 08/20/16 00:06 01:23 02:21 WBC RBC Hgb Hct MCV MCHC RDW Plt Count MPV Neutrophils % Lymphocytes % Monocytes % Eosinophils % Basophils % Sodium Potassium Chloride Carbon Dioxide Anion Gap BUN Creatinine POC Glucometer [phone] 176.83613 Random Glucose Calcium Phosphorus Magnesium Total Bilirubin Direct Bilirubin GGT AST ALT Alkaline Phosphatase Creatine Kinase Total Protein Albumin 08/20/16 08/20/16 08/20/16 03:18 04:13 05:50 WBC 13.6 H RBC 2.97 L Hgb 7.1 L Hct 23.2 L MCV 78.2 L MCHC 30.5 L RDW 17.7 H Plt Count 524 H MPV 8.4 Neutrophils % 77.4 Lymphocytes % 4.4 L D Monocytes % 16.2 H Eosinophils % 0.7 D Basophils % 1.3 D Sodium Potassium Chloride Carbon Dioxide Anion Gap BUN Creatinine POC Glucometer 102.84812 111.48684 Random Glucose Calcium Phosphorus Magnesium Total Bilirubin Direct Bilirubin GGT AST ALT Alkaline Phosphatase Creatine Kinase Total Protein Albumin 08/20/16 08/20/16 05:50 05:58 WBC RBC Hgb Hct MCV MCHC RDW Plt Count MPV Neutrophils % Lymphocytes % Monocytes % Eosinophils % Basophils % Sodium 131 L Potassium 5.5 H Chloride 93 L Carbon Dioxide 21 D Anion Gap 17 H BUN 56 H Creatinine 6.9 H POC Glucometer [phone] Random Glucose 171 H D Calcium 8.1 L Phosphorus 5.1 H Magnesium 2.2 Total Bilirubin 0.7 Direct Bilirubin 0.2 D GGT 234 H D AST 15 D ALT 11 L Alkaline Phosphatase 866 H Creatine Kinase 433 H Total Protein 7.4 Albumin 2.5 L Active Medications Generic Name Dose Route Start Last Admin Trade Name Freq PRN Reason Stop Dose Admin Hydromorphone HCl 1 mg 08/20/16 00:03 08/20/16 05:20 Dilaudid Injection - IM 1 mg Q4H PRN Administration PAIN Insulin Human Regular 100 100 mls @ 6.57 mls/hr 08/19/16 18:30 08/19/16 19:13 units/ Sodium Chloride IVPB 6 mls/hr TITR ROSA MARIA Administration Protocol 0.1 UNITS/KG/HR Insulin Aspart 1 vial 08/20/16 11:00 Novolog Vial Sliding Scale - SQ ACHS ROSA MARIA Protocol ASSESSMENT/PLAN: 25 yr old woman with uncontrolled DM II, HTN, ESRD on HD, myosities, chronic right leg edema, hx of medication noncompliance admitted for DKA. Endocrine s/p levemir administration, insulin drip dc/d repeat BMP with anion gap closed, unable to give IVF due to ESRD start diet with NISS consult: Dr. Cassidy Renal Dialysis today ultram ok for pain control renvela 1600mg po tid cinacalcet 60mg po daily consult: Cardiovascular HTN labetalol 200mg TID losartan 25 mg po daily clonidine 0.3 mg po tid hydralazine 25mg po TID procardia XL 30mg po tid - pt has not been compliant with medications, Will slowly initiate with nifedipine, losartan, clonidine and labetalol as per renal, and monitor response. Hematological anemia with low hct/hgb, no signs of acute bleeding plan to transfuse 2 units prbc's during dialysis Epogen Musculoskeletal Right thigh pain is chronic, recently underwent CT scan, no indication to repeat again now pain control with percocet + ultram as pt has no residual kidney function Infectious Disease ulcers on feet do not appear infected,(no pus, no warm, swelling or fever) recommend outpatient f/u with wound care clinic for further care DVT: scd's Diet: diabetic/renal/low sodium Dispo: DKA improved, pt is stable to be monitored on Med-surg floor Visit type - Emergency Visit Emergency Visit: No - New Patient This patient is new to me today: Yes Date on this admission: 08/20/16 - Critical Care Critical Care patient: Yes Total Critical Care Time (in minutes): 39 Critical Care Statement: The care of this patient involved high complexity decision making to prevent further life threatening deterioration of the patient 's condition and/or to evalute & treat vital organ system(s) failure or risk of failure.
--- NOTE | 2016-08-20 10:44 | HP ---
Admitting History and Physical - Primary Care Physician PCP: Edna Calero - Admission Chief Complaint: DKA, rt leg pain History of Present Illness: ER HISTORY History of Present Illness Initial Comments: 08/19/16 18:18 Patient is a 25 year old female with significant medical hx of anemia, IDDM, ESRD (hemodialysis MWF), HTN, DVT, and PE (on coumadin), myosistis, osteomyelitis (right 5th digit surgery), who is presenting to the ED with epigastric pain since yesterday. Patient was seen in the ED yesterday for epigastric pain, nausea, and diarrhea. She had been sent to the ED from the [facility] yesterday for BGL of 511 while receiving a biopsy of a lymph node. Yesterday the patient was found to be in DKA and she decided to sign out AMA. Patient has a secondary complaint of right leg pain with some swelling which she reports is chronic. Allergies: NKDA Surgical Hx: Myxoma removed 2013 Right foot ulcer surgery, Lft upper extremity fistula Social Hx: Denies ETOH or illicit drug use. PCP: Edna Calero MD Fire Crew Worker: Nathan Vo MD Pt seen by me in the ICU- was placed on insulin drip-- dc today as anion gap closed Mother at bedside History Source: Patient, Family Member Limitations to Obtaining History: No Limitations - Past Medical History Cardiovascular: Yes: CHF, HTN, Other (thrombus in heart per echo 11/2013; ? subclavian vein thromboses s/p dialysis catheters in the past) Pulmonary: Yes: Pulmonary Embolus Renal/: Yes: Renal Failure, Hemodialysis ...LMP: 08/17/14 Heme/Onc: Yes: Other (atrial myxoma s/p surgical removal. Also has a history of PE ) Infectious Disease: Yes: MRSA (history of bacteremia, recent mrsa foot abscess) Endocrine: Yes: Diabetes Mellitus (type 1 on insulin pump) - Past Surgical History Past Surgical History: Yes: AV Fistula/Graft (Right arm) - Smoking History Smoking history: Never smoked Have you smoked in the past 12 months: No Aproximately how many cigarettes per day: 10 - Alcohol/Substance Use Hx Alcohol Use: No History of Substance Use: reports: None - Social History ADL: Independent Occupation: unemployed History of Recent Travel: No Home Medications - Allergies Allergies/Adverse Reactions: Allergies Allergy/AdvReac Type Severity Reaction Status Date / Time No Known Drug Allergies Allergy Verified 08/19/16 14:39 - Home Medications Home Medications: Ambulatory Orders Gabapentin 100 mg PO TID 03/11/16 Mupirocin Cream [Bactroban 2% Cream -] 1 applic TP BID #1 tube 05/07/16 Clonidine HCl [Catapres -] 0.3 mg PO TID #90 tablet 07/14/16 Hydralazine HCl [Apresoline -] 25 mg PO TID #60 tablet 07/14/16 Labetalol HCl [Normodyne -] 200 mg PO TID #90 tablet 07/14/16 Losartan Potassium [Cozaar -] 25 mg PO DAILY #30 tablet 07/14/16 Sevelamer Carbonate [Renvela -] 1,600 mg PO TIDCM #60 tab 07/14/16 Cinacalcet HCl [Sensipar] 60 mg PO DAILY 08/05/16 Diphenhydramine [Benadryl Capsule -] 50 mg PO HS 08/05/16 Nifedipine [Procardia Xl] 30 mg PO TID 08/05/16 Sennosides [Senna] 8.6 mg PO DAILY 08/05/16 Insulin (Levemir) [Levemir Flexpen -] 10 units SQ BID #5 pen 08/11/16 Insulin Lispro [Humalog Kwikpen U-100] 1 unit SQ TID #2 units 08/11/16 Oxycodone HCl/Acetaminophen [Percocet 5-325 mg Tablet] 1 tab PO Q6H PRN #60 tablet MDD 4 08/11/16 Tramadol HCl 50 mg PO PRN PRN 08/17/16 Family Disease History - Family Disease History Family Disease History: Diabetes: Grandparent (HTN), Heart Disease: Grandparent , Other: Father (unknown), Mother (HTN) Review of Systems - Review of Systems Constitutional: reports: Weakness. denies: Chills, Fever Gastrointestinal: reports: Abdominal Pain Musculoskeletal: reports: Extremity Pain (right leg pain) Physical Examination Vital Signs: Vital Signs Temperature 97.6 F 08/20/16 10:00 Pulse Rate 89 08/20/16 10:00 Respiratory Rate 14 08/20/16 10:00 Blood Pressure 134/77 08/20/16 10:00 O2 Sat by Pulse Oximetry (%) 100 08/20/16 04:00 Constitutional: Yes: No Distress, Calm Cardiovascular: Yes: Regular Rate and Rhythm Respiratory: Yes: CTA Bilaterally Gastrointestinal: Yes: Normal Bowel Sounds, Soft, Abdomen, Obese. No: Distention, Tenderness Extremities: Yes: Other (rt inguinal LNE +) Edema: Yes Edema: RLE: 1+ Psychiatric: Yes: Alert, Oriented Labs: CBC, BMP 08/20/16 05:50 08/20/16 05:50 Imaging - Results Chest X-ray: Image Reviewed (bibasliar atelectasis) EKG: Image Reviewed (NSR) Problem List - Problems (1) DKA (diabetic ketoacidosis) Code(s): E13.10 - OTH DIABETES MELLITUS WITH KETOACIDOSIS WITHOUT COMA Qualifiers: Diabetes mellitus type: type 1 (2) Leg pain, right Code(s): M79.604 - PAIN IN RIGHT LEG (3) Diabetes mellitus, insulin dependent (IDDM), uncontrolled Code(s): E10.65 - TYPE 1 DIABETES MELLITUS WITH HYPERGLYCEMIA Qualifiers: Diabetes mellitus complication status: with unspecified complications Qualified Code(s): E10.8 - Type 1 diabetes mellitus with unspecified complications; E10.65 - Type 1 diabetes mellitus with hyperglycemia (4) ESRD (end stage renal disease) on dialysis Code(s): N18.6 - END STAGE RENAL DISEASE Z99.2 - DEPENDENCE ON RENAL DIALYSIS (5) Myositis Code(s): M60.9 - MYOSITIS, UNSPECIFIED Qualifiers: Myositis location: thigh Laterality: right Assessment/Plan PLAN Pt was on insulin infusion- now discontinued as gap closed Has uncontrolled DM- non compliant in meds, diet and follow ups Endocrinology eval Will do LN biopsy as inpatient IR consult Pt has been off ASA since last week Renal eval for dialysis not volume overload Pain control for myositis Has had work up done previously Motrin, Tramadol as needed PT eval DVT prophylaxis-- Heparin sc Time spent 35 min spoke with mother
[2016-08-20] MEDS ORDERED: EPOETIN ALFA 20,000 UNIT/1 ML VIAL SQ ONE (10:45)
[2016-08-20] MEDS ORDERED: OXYCODONE/APAP 5/325MG COMBO TABLET PO PRN (10:45)
[2016-08-20] MEDS ORDERED: traMADol HCL 50 MG TABLET PO PRN ×2 (10:45→19:03)
--- NOTE | 2016-08-20 11:33 | EKG ---
Test Reason : Blood Pressure : / mmHG Vent. Rate : 083 BPM Atrial Rate : 083 BPM P-R Int : 192 ms QRS Dur : 084 ms QT Int : 386 ms P-R-T Axes : 022 -07 043 degrees QTc Int : 453 ms NORMAL SINUS RHYTHM POSSIBLE LEFT ATRIAL ENLARGEMENT CANNOT RULE OUT ANTERIOR INFARCT (CITED ON OR BEFORE 19-AUG-2016) ABNORMAL ECG WHEN COMPARED WITH ECG OF 18-AUG-2016 13:24, NO SIGNIFICANT CHANGE WAS FOUND Confirmed by WESLEY SABILLON MD ([id number]) on 08/20/2016 11:32:50 AM Referred By: Confirmed By:WESLEY SABILLON MD
--- NOTE | 2016-08-20 11:46 | CONSULT ---
Consult - text type - Consultation Consultation Note: Renal Consult for ESRD on HD This is a 25 year old woman well known to our service with PMhx of ESRD on HD, IDDM, PVD Osteomylitis, 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 DKA treated in the ICU with IV insulin and now hyperglycemia is now improved. Pt was planned for Lymph Node biopsy but was sent to the ED for hyperglycemia at that time. Pt states Abd pain is better but continues to have pain in the thigh. No GUTIERRES, chest pain, sob, N/V/D. Last dialysis was Wednesday, did not get dialysis yesterday. Currently in the ICU. PMhx: as above Allergeies: NKDA Family Hx: NC Social Hx: No T/A/D ROS: as per HPI, all other pertinent ros negative Home Meds: Home Medications Medication Instructions Recorded Gabapentin 100 mg PO TID 03/11/16 Mupirocin Cream [Bactroban 2% 1 applic TP BID #1 tube 05/07/16 Cream -] Clonidine HCl [Catapres -] 0.3 mg PO TID #90 tablet 07/14/16 Hydralazine HCl [Apresoline -] 25 mg PO TID #60 tablet 07/14/16 Labetalol HCl [Normodyne -] 200 mg PO TID #90 tablet 07/14/16 Losartan Potassium [Cozaar -] 25 mg PO DAILY #30 tablet 07/14/16 Sevelamer Carbonate [Renvela -] 1,600 mg PO TIDCM #60 tab 07/14/16 Cinacalcet HCl [Sensipar] 60 mg PO DAILY 08/05/16 Diphenhydramine [Benadryl Capsule 50 mg PO HS 08/05/16 -] Nifedipine [Procardia Xl] 30 mg PO TID 08/05/16 Sennosides [Senna] 8.6 mg PO DAILY 08/05/16 Insulin (Levemir) [Levemir Flexpen 10 units SQ BID #5 pen 08/11/16 -] Insulin Lispro [Humalog Kwikpen 1 unit SQ TID #2 units 08/11/16 U-100] Oxycodone HCl/Acetaminophen 1 tab PO Q6H PRN #60 tablet MDD 4 08/11/16 [Percocet 5-325 mg Tablet] Tramadol HCl 50 mg PO PRN PRN 08/17/16 Vital Signs Temperature 97.6 F 08/20/16 10:00 Pulse Rate 89 08/20/16 10:00 Respiratory Rate 14 08/20/16 10:00 Blood Pressure 134/77 08/20/16 10:00 O2 Sat by Pulse Oximetry (%) 100 08/20/16 04:00 Intake & Output 08/17/16 08/18/16 08/19/16 08/20/16 23:59 23:59 23:59 23:59 Intake Total 50 25 Balance 50 25 Weight 143 lb 11.862 oz 143 lb Gen: NAD, awake and alert HEENT: NC/AT, MMM, No JVD, Neck Supple CVS: RRR, No M/R Lungs: CTA, no rales or wheeze Abd: soft, NT/ND Ext: Trace edema in b/l LE, + tenderness Right Thigh and calf Access: left arm AVF + thrill and bruit Neuro: AAOx3, no focal defects CBC, BMP 08/20/16 05:50 08/20/16 05:50 Laboratory Tests 08/20/16 08/20/16 05:50 05:50 MCV 78.2 L Calcium 8.1 L Phosphorus 5.1 H GGT 234 H D ALT 11 L Alkaline Phosphatase 866 H Creatine Kinase 433 H Albumin 2.5 L Current Medications Cinacalcet (Sensipar -) 60 mg PO DAILY [facility] Clonidine (Catapres -) 0.3 mg PO TID [facility] Gabapentin (Neurontin -) 100 mg PO TID [facility] Hydralazine HCl (Apresoline -) 25 mg PO TID [facility] Hydromorphone HCl (Dilaudid Injection -) 1 mg IM Q4H PRN PRN Reason: PAIN Last Admin: 08/20/16 05:20 Dose: 1 mg Insulin Human Regular 100 (units/ Sodium Chloride) 100 mls @ 6.57 mls/hr IVPB TITR ROSA MARIA; 0.1 UNITS/KG/HR PRN Reason: Protocol Last Admin: 08/19/16 19:13 Dose: 6 mls/hr Insulin Aspart (Novolog Vial Sliding Scale -) 1 vial SQ ACHS ROSA MARIA PRN Reason: Protocol Labetalol HCl (Normodyne -) 200 mg PO TID ROSA MARIA Losartan Potassium (Cozaar -) 25 mg PO DAILY ROSA MARIA Nifedipine (Procardia Xl -) 30 mg PO TID [facility] Non-Formulary Medication (Insulin (Levemir) [Levemir Flexpen -]) 10 units SQ BID ROSA MARIA Oxycodone/Acetaminophen (Percocet 5/325 -) combo PO Q6H PRN PRN Reason: PAIN LEVEL 6-10 Senna (Senna -) tab PO DAILY ROSA MARIA Sevelamer Carbonate (Renvela -) 1,600 mg PO TIDCM ROSA MARIA Tramadol HCl (Ultram -) 50 mg PO Q6H PRN PRN Reason: PAIN A/P 25 year old woman well known to our service with PMhx of ESRD on HD, IDDM, PVD Osteomylitis, 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 #ESRD on HD (MWF) For dialysis today in the ICU Tx time 3 hours with goal UF of 2-2.5L as tolerated Will plan for next HD on Wednesday and then resume MWF next week #DKA hyperglycemia now improved. Anion gap improved but still high Management as per ICU #Thigh pain and Myositis CT done last week showed edema by the muscles, no collections or abcess Pain control Can use NSAIDs for pain control as pt does not have significant residual renal function work up as per primary #Anemia of CKD Hgb below goal Will transfuse 2 units of prbc with HD today High Dose Epogen #Hypertension continue Nifedpine, Losartan, Clonidine, Labetalol Titrate as needed Thank you Nathan Vo DO
--- NOTE | 2016-08-20 13:52 | PN ---
Teaching Attending Note Name of Resident: Evan Tomas ATTENDING PHYSICIAN STATEMENT I saw and evaluated the patient. I reviewed the resident's note and discussed the case with the resident. I agree with the resident's findings and plan as documented. Rocael Rojas MD
[2016-08-20] MEDS ORDERED: LABETALOL HCL 200 MG TABLET (FP) PO SCH (14:00)
[2016-08-20] MEDS ORDERED: hydrALAZINE HCL 25 MG TABLET (FP) PO SCH (14:00)
[2016-08-20] MEDS ORDERED: GABAPENTIN 100 MG CAPSULE (FP) PO SCH (14:00)
[2016-08-20] MEDS ORDERED: NIFEdipine E.R. 30 MG TABLET (FP) PO SCH ×2 (14:00→22:00)
[2016-08-20] MEDS ORDERED: cloNIDine HCL 0.1 MG TABLET PO SCH (14:00)
[2016-08-20] MEDS: INSULIN SLIDING SCALE (NOVOLOG) 1 VIAL SQ SCH ×3 (14:04→21:33)
[2016-08-20] MEDS: SEVELAMER CARBONATE 800 MG TAB (FP) PO SCH ×2 (14:04→18:03)
[2016-08-20 15:23] LABS: BASOPHIL 0.8 % (0-2.0); EOSINOPHIL 0.5 % (0-4.5); MCH 24.5 pg (25.7-33.7); MCHC 31.1 g/dl (32.0-36.0); MEAN CELL VOLUME 78.7 fl (80-96); MEAN PLT VOLUME 8.5 fl (7.5-11.1); NEUTROPHILS 81.2 % (42.8-82.8); PLATELET COUNT 515 K/MM3 (134-434); WHITE BLOOD COUNT 13.5 K/mm3 (4.0-10.0)
[2016-08-20 15:25] LABS: ALBUMIN 2.6 g/dl (3.4-5.0); BILIRUBIN,TOTAL 0.6 mg/dL (0.2-1.0); CALCIUM 8.4 mg/dL (8.5-10.1); COCKROFT - GAULT 28.152; CREATININE 3.1 mg/dL (0.55-1.02); TOT PROT 7.7 g/dl (6.4-8.2)
[2016-08-20] MEDS ORDERED: oxyCODONE HCL 5 MG TABLET PO PRN (15:33)
[2016-08-20] MEDS: ACETAMINOPHEN 325 MG TABLET (FP) PO PRN ×2 (15:49→22:18)
[2016-08-20] MEDS ORDERED: IBUPROFEN 600 MG TABLET (FP) PO PRN (20:41)
[2016-08-20] MEDS ORDERED: INSULIN (NOVOLOG) ASPART 100 UNITS/ML 10ML VIAL ONE (21:28)
[2016-08-20] MEDS: HEPARIN NA (PORCINE) 5,000 UNITS/ML 1ML VIAL SQ SCH (21:33)
[2016-08-20] MEDS: INSULIN DETEMIR 100 UNITS/ML MDV SQ SCH (21:33)
[2016-08-20] MEDS: LABETALOL HCL 200 MG TABLET (FP) PO SCH (21:34)
[2016-08-20] MEDS: GABAPENTIN 100 MG CAPSULE (FP) PO SCH (21:34)
[2016-08-20] MEDS: hydrALAZINE HCL 25 MG TABLET (FP) PO SCH (21:34)
[2016-08-20] MEDS ORDERED: INSULIN SQ SCH (22:00)
[2016-08-20] MEDS: cloNIDine HCL 0.1 MG TABLET PO SCH (22:17)
[2016-08-20] MEDS: oxyCODONE HCL 5 MG TABLET PO PRN (22:18)
--- NOTE | 2016-08-21 01:40 | CONSULT ---
Consult Consult Specialty:: endocrine Referred by:: dr.singh obando Reason for Consultation:: iddm uncontrolled - History of Present Illness Chief Complaint: uncontrolled sugars History of Present Illness: 25 year old female with significant medical hx of anemia, IDDM, ESRD ( hemodialysis MWF), HTN, DVT, and PE (on coumadin), myosistis, osteomyelitis ( right 5th digit surgery), who is presenting to the ED with epigastric pain since yesterday. Patient was seen in the ED yesterday for epigastric pain, nausea, and diarrhea. She had been sent to the ED from the [facility] yesterday for BGL of 511 while receiving a biopsy of a lymph node. Yesterday the patient was found to be in DKA and she decided to sign out AMA. Patient has frequent labile blood sugars,not using insulin pump consistantly since history of recurrent skin infections,uses basal and bolus insulin levemir and novolog with meals - History Source History Provided By: Patient - Past Medical History Cardio/Vascular: Yes: CHF, HTN, Other (thrombus in heart per echo 11/2013; ? subclavian vein thromboses s/p dialysis catheters in the past) Pulmonary: Yes: Pulmonary Embolus Renal/: Yes: Renal Failure, Hemodialysis ...LMP: 08/17/14 Infectious Disease: Yes: MRSA (history of bacteremia, recent mrsa foot abscess) Endocrine: Yes: Diabetes Mellitus (type 1 on insulin pump) Additional Medical History: DVT, PE on coumadin - Past Surgical History Past Surgical History: Yes: AV Fistula/Graft (Right arm) - Alcohol/Substance Use Hx Alcohol Use: No History of Substance Use: reports: None - Smoking History Smoking history: Never smoked Have you smoked in the past 12 months: No Aproximately how many cigarettes per day: 10 - Social History Usual Living Arrangement: With Parent ADL: Independent Occupation: unemployed History of Recent Travel: No Home Medications - Allergies Allergies/Adverse Reactions: Allergies Allergy/AdvReac Type Severity Reaction Status Date / Time No Known Drug Allergies Allergy Verified 08/19/16 14:39 - Home Medications Home Medications: Ambulatory Orders Gabapentin 100 mg PO TID 03/11/16 Mupirocin Cream [Bactroban 2% Cream -] 1 applic TP BID #1 tube 05/07/16 Clonidine HCl [Catapres -] 0.3 mg PO TID #90 tablet 07/14/16 Hydralazine HCl [Apresoline -] 25 mg PO TID #60 tablet 07/14/16 Labetalol HCl [Normodyne -] 200 mg PO TID #90 tablet 07/14/16 Losartan Potassium [Cozaar -] 25 mg PO DAILY #30 tablet 07/14/16 Sevelamer Carbonate [Renvela -] 1,600 mg PO TIDCM #60 tab 07/14/16 Cinacalcet HCl [Sensipar] 60 mg PO DAILY 08/05/16 Diphenhydramine [Benadryl Capsule -] 50 mg PO HS 08/05/16 Nifedipine [Procardia Xl] 30 mg PO TID 08/05/16 Sennosides [Senna] 8.6 mg PO DAILY 08/05/16 Insulin (Levemir) [Levemir Flexpen -] 10 units SQ BID #5 pen 08/11/16 Insulin Lispro [Humalog Kwikpen U-100] 1 unit SQ TID #2 units 08/11/16 Oxycodone HCl/Acetaminophen [Percocet 5-325 mg Tablet] 1 tab PO Q6H PRN #60 tablet MDD 4 08/11/16 Tramadol HCl 50 mg PO PRN PRN 08/17/16 Family Disease History - Family Disease History Family Disease History: Diabetes: Grandparent (HTN), Heart Disease: Grandparent , Other: Father (unknown), Mother (HTN) Review of Systems - Review of Systems Constitutional: reports: Lethargy, Weakness Eyes: reports: Blurred Vision HENT: reports: Throat Pain Neck: reports: No Symptoms Cardiovascular: reports: Shortness of Breath Respiratory: reports: Exercise Intolerance, SOB, SOB on Exertion Gastrointestinal: reports: Abdominal Pain, Nausea Genitourinary: reports: No Symptoms Breasts: reports: No Symptoms Reported Musculoskeletal: reports: Extremity Pain, Muscle Pain, Muscle Cramps, Muscle Weakness Integumentary: reports: No Symptoms Neurological: reports: Dizziness, Unsteady Gait, Weakness Endocrine: reports: Unexplained Weight Loss Physical Exam Vital Signs: Vital Signs Temperature 98.6 F 08/20/16 20:42 Pulse Rate 98 H 08/20/16 20:42 Respiratory Rate 18 08/20/16 21:00 Blood Pressure 153/91 08/20/16 20:42 O2 Sat by Pulse Oximetry (%) 96 08/20/16 21:00 Constitutional: Yes: Anxious Eyes: Yes: EOM Intact HENT: Yes: Normocephalic Neck: Yes: Trachea Midline Cardiovascular: Yes: Regular Rate and Rhythm Respiratory: Yes: CTA Bilaterally Gastrointestinal: Yes: Normal Bowel Sounds ...Rectal Exam: Yes: Deferred Breast(s): Yes: WNL Musculoskeletal: Yes: Muscle Pain, Muscle Weakness Extremities: Yes: WNL Edema: No Neurological: Yes: Alert, Oriented, Numbness, Weakness Labs: CBC, BMP 08/20/16 14:40 08/20/16 14:40 Problem List - Problems (1) DKA (diabetic ketoacidosis) Code(s): E13.10 - OTH DIABETES MELLITUS WITH KETOACIDOSIS WITHOUT COMA Qualifiers: Diabetes mellitus type: type 1 (2) Myositis Code(s): M60.9 - MYOSITIS, UNSPECIFIED Qualifiers: Myositis location: thigh Laterality: right (3) Abdominal pain Code(s): R10.9 - UNSPECIFIED ABDOMINAL PAIN (4) Chest pain Code(s): R07.9 - CHEST PAIN, UNSPECIFIED Qualifiers: Chest pain type: other chest pain Qualified Code(s): R07.89 - Other chest pain; R07.8 - Other chest pain Assessment/Plan Current Active Problems DKA (diabetic ketoacidosis) (Acute) Leg pain, right (Acute) Leukocytosis (Acute) Myositis (Acute) Hyperkalemia (Chronic) Abnormal Lab Results 08/20/16 08/20/16 08/20/16 05:50 05:50 10:30 WBC 13.6 H RBC 2.97 L Hgb 7.1 L Hct 23.2 L MCV 78.2 L MCHC 30.5 L RDW 17.7 H Plt Count 524 H Lymphocytes % 4.4 L D Monocytes % 16.2 H Sodium 131 L Potassium 5.5 H Chloride 93 L Anion Gap 17 H BUN 56 H Creatinine 6.9 H Random Glucose 171 H D Calcium 8.1 L Phosphorus 5.1 H GGT 234 H D ALT 11 L Alkaline Phosphatase 866 H Creatine Kinase 433 H Albumin 2.5 L Crossmatch See Detail 08/20/16 08/20/16 14:40 14:40 WBC 13.5 H RBC Hgb 9.4 L D Hct 30.1 L D MCV 78.7 L MCHC 31.1 L RDW 17.0 H Plt Count 515 H Lymphocytes % 5.0 L Monocytes % 12.5 H Sodium Potassium 3.4 L D Chloride 96 L Anion Gap BUN 21 H D Creatinine 3.1 H D Random Glucose 224 H D Calcium 8.4 L Phosphorus GGT ALT 10 L Alkaline Phosphatase 894 H Creatine Kinase Albumin 2.6 L Crossmatch plan: bgm achs novolog coverage levemir 10 units bid Current Medications Generic Name Dose Route Start Last Admin Trade Name Freq PRN Reason Stop Dose Admin Acetaminophen 325 mg 08/20/16 15:33 08/20/16 22:18 Tylenol - PO 325 mg Q6H PRN Administration PAIN LEVEL 6-10 Cinacalcet 60 mg 08/21/16 10:00 Sensipar - PO DAILY [facility] Clonidine 0.3 mg 08/20/16 22:00 08/20/16 22:17 Catapres - PO 0.3 mg TID ROSA [facility] Administration Gabapentin 100 mg 08/20/16 22:00 08/20/16 21:34 Neurontin - PO 100 mg TID [facility] Administration Heparin Sodium (Porcine) 5,000 unit 08/20/16 22:00 08/20/16 21:33 Heparin - SQ 5,000 unit BID [facility] Administration Hydralazine HCl 25 mg 08/20/16 22:00 08/20/16 21:34 Apresoline - PO 25 mg TID [facility] Administration Hydromorphone HCl 1 mg 08/20/16 19:03 08/20/16 20:25 Dilaudid Injection - IM 1 mg Q4H PRN Administration PAIN Ibuprofen 600 mg 08/20/16 20:41 Motrin - PO Q6H PRN FEVER Insulin Aspart 1 vial 08/20/16 22:00 08/20/16 21:33 Novolog Vial Sliding Scale - SQ 2 units ACHS ROS[facility] Administration Protocol Insulin Detemir 10 units 08/20/16 22:00 08/20/16 21:33 Levemir Vial SQ 10 units BID@0700,2200 [facility] Administration Labetalol HCl 200 mg 08/20/16 22:00 08/20/16 21:34 Normodyne - PO 200 mg TID [facility] Administration Losartan Potassium 25 mg 08/21/16 10:00 Cozaar - PO DAILY [facility] Nifedipine 30 mg 08/20/16 22:00 Procardia Xl - PO TID [facility] Oxycodone HCl 10 mg 08/20/16 16:56 08/20/16 22:18 Roxicodone - PO 10 mg Q6H PRN Administration PAIN LEVEL 6-10 Pantoprazole Sodium 40 mg 08/21/16 10:00 Protonix - PO DAILY [facility] Senna 1 tab 08/21/16 10:00 Senna - PO DAILY [facility] Sevelamer Carbonate 1,600 mg 08/21/16 08:00 Renvela - PO TIDCM [facility] Tramadol HCl 50 mg 08/20/16 19:03 Ultram - PO Q6H PRN PAIN
[2016-08-21] MEDS: ACETAMINOPHEN 325 MG TABLET (FP) PO PRN ×3 (04:57→21:19)
[2016-08-21] MEDS: oxyCODONE HCL 5 MG TABLET PO PRN ×3 (04:58→21:18)
[2016-08-21] MEDS: LABETALOL HCL 200 MG TABLET (FP) PO SCH ×3 (06:11→21:18)
[2016-08-21] MEDS: hydrALAZINE HCL 25 MG TABLET (FP) PO SCH ×3 (06:11→21:18)
[2016-08-21] MEDS: GABAPENTIN 100 MG CAPSULE (FP) PO SCH ×3 (06:12→21:18)
[2016-08-21] MEDS: INSULIN DETEMIR 100 UNITS/ML MDV SQ SCH ×2 (06:12→21:20)
[2016-08-21] MEDS: cloNIDine HCL 0.1 MG TABLET PO SCH ×3 (06:12→21:20)
[2016-08-21] MEDS: INSULIN SLIDING SCALE (NOVOLOG) 1 VIAL SQ SCH ×4 (06:13→21:21)
[2016-08-21 07:29] LABS: EOSINOPHIL 0.8 % (0-4.5); MCH 24.9 pg (25.7-33.7); MCHC 31.7 g/dl (32.0-36.0); MEAN CELL VOLUME 78.3 fl (80-96); MEAN PLT VOLUME 8.1 fl (7.5-11.1); NEUTROPHILS 76.3 % (42.8-82.8); PLATELET COUNT 515 K/MM3 (134-434); WHITE BLOOD COUNT 12.6 K/mm3 (4.0-10.0)
[2016-08-21] MEDS: HYDROmorphone HCL CARPU-JECT 1 MG/1 ML DISP.SYRIN IM PRN (07:47)
[2016-08-21] MEDS: SEVELAMER CARBONATE 800 MG TAB (FP) PO SCH ×4 (07:48→17:26)
[2016-08-21 08:13] LABS: ALBUMIN 2.5 g/dl (3.4-5.0); BILIRUBIN,TOTAL 0.6 mg/dL (0.2-1.0); COCKROFT - GAULT 18.1815; CREATININE 4.7 mg/dL (0.55-1.02); PHOSPHOROUS 5.1 mg/dL (2.5-4.9); TOT PROT 7.8 g/dl (6.4-8.2)
--- NOTE | 2016-08-21 08:16 | PN ---
Progress Note (short form) - Note Progress Note: SUBJECTIVE: Patient seen and examined. Chart reviewed. Complaining of right lower extremity pain. Blood sugar is better. Afebrile. OBJECTIVE: Vital Signs 08/21/16 08/21/16 08/21/16 02:00 05:41 08:16 Temperature 98.5 F 99.1 F 98.6 F Pulse Rate 86 89 87 Respiratory 18 18 18 Rate Blood Pressure 160/86 160/88 146/87 Intake & Output 08/20/16 08/21/16 08/21/16 23:59 07:59 15:59 Intake Total 660 500 Balance 660 500 Weight 63.503 kg Intake: Oral 660 500 Other: Voiding Method Toilet Bowel Movement No Active Medications Acetaminophen (Tylenol -) 325 mg PO Q6H PRN PRN Reason: PAIN LEVEL 6-10 Last Admin: 08/21/16 04:57 Dose: 325 mg Cinacalcet (Sensipar -) 60 mg PO DAILY [facility] Clonidine (Catapres -) 0.3 mg PO TID [facility] Last Admin: 08/21/16 06:12 Dose: 0.3 mg Gabapentin (Neurontin -) 100 mg PO TID [facility] Last Admin: 08/21/16 06:12 Dose: 100 mg Heparin Sodium (Porcine) (Heparin -) 5,000 unit SQ BID [facility] Last Admin: 08/20/16 21:33 Dose: 5,000 unit Hydralazine HCl (Apresoline -) 25 mg PO TID [facility] Last Admin: 08/21/16 06:11 Dose: 25 mg Hydromorphone HCl (Dilaudid Injection -) 1 mg IM Q4H PRN PRN Reason: PAIN Last Admin: 08/21/16 07:47 Dose: 1 mg Ibuprofen (Motrin -) 600 mg PO Q6H PRN PRN Reason: FEVER Insulin Aspart (Novolog Vial Sliding Scale -) 1 vial SQ ACHS [facility] PRN Reason: Protocol Last Admin: 08/21/16 06:13 Dose: Not Given Insulin Detemir (Levemir Vial) 10 units SQ BID@0700,2200 [facility] Last Admin: 08/21/16 06:12 Dose: Not Given Labetalol HCl (Normodyne -) 200 mg PO TID [facility] Last Admin: 08/21/16 06:11 Dose: 200 mg Losartan Potassium (Cozaar -) 25 mg PO DAILY [facility] Nifedipine (Procardia Xl -) 30 mg PO TID [facility] Oxycodone HCl (Roxicodone -) 10 mg PO Q6H PRN PRN Reason: PAIN LEVEL 6-10 Last Admin: 08/21/16 04:58 Dose: 10 mg Pantoprazole Sodium (Protonix -) 40 mg PO DAILY [facility] Senna (Senna -) 1 tab PO DAILY [facility] Sevelamer Carbonate (Renvela -) 1,600 mg PO TIDCM [facility] Last Admin: 08/21/16 07:48 Dose: 1,600 mg Tramadol HCl (Ultram -) 50 mg PO Q6H PRN PRN Reason: PAIN CBC, BMP 08/21/16 06:50 08/21/16 06:50 Laboratory Results - last 24 hr 08/20/16 08/20/16 08/20/16 10:30 12:11 14:40 WBC 13.5 H RBC 3.82 D Hgb 9.4 L D Hct 30.1 L D MCV 78.7 L MCHC 31.1 L RDW 17.0 H Plt Count 515 H MPV 8.5 Neutrophils % 81.2 Lymphocytes % 5.0 L Monocytes % 12.5 H Eosinophils % 0.5 Basophils % 0.8 Sodium Potassium Chloride Carbon Dioxide Anion Gap BUN Creatinine Creat Clearance w eGFR POC Glucometer 248.49392 Random Glucose Calcium Phosphorus Total Bilirubin AST ALT Alkaline Phosphatase Total Protein Albumin Blood Type B POSITIVE Antibody Screen Negative Crossmatch See Detail 08/20/16 08/20/16 08/20/16 14:40 16:52 21:32 WBC RBC Hgb Hct MCV MCHC RDW Plt Count MPV Neutrophils % Lymphocytes % Monocytes % Eosinophils % Basophils % Sodium 138 Potassium 3.4 L D Chloride 96 L Carbon Dioxide 29 D Anion Gap 13 BUN 21 H D Creatinine 3.1 H D Creat Clearance w eGFR 18.16 POC Glucometer [phone] Random Glucose 224 H D Calcium 8.4 L Phosphorus Total Bilirubin 0.6 AST 16 ALT 10 L Alkaline Phosphatase 894 H Total Protein 7.7 Albumin 2.6 L Blood Type Antibody Screen Crossmatch 08/21/16 08/21/16 08/21/16 05:09 06:50 06:50 WBC 12.6 H RBC 3.85 Hgb 9.6 L Hct 30.1 L MCV 78.3 L MCHC 31.7 L RDW 17.0 H Plt Count 515 H MPV 8.1 Neutrophils % 76.3 Lymphocytes % 6.1 L D Monocytes % 15.8 H Eosinophils % 0.8 Basophils % 1.0 Sodium 137 Potassium 3.9 Chloride 95 L Carbon Dioxide 29 Anion Gap 13 BUN 34 H D Creatinine 4.7 H D Creat Clearance w eGFR 11.24 POC Glucometer 71 Random Glucose 110 H D Calcium 9.0 Phosphorus 5.1 H Total Bilirubin 0.6 AST 22 D ALT 11 L Alkaline Phosphatase 853 H Total Protein 7.8 Albumin 2.5 L Blood Type Antibody Screen Crossmatch Microbiology 08/19/16 17:14 Blood Culture - Preliminary Blood - Peripheral Venous NO GROWTH OBTAINED AFTER 24 HOURS, INCUBATION TO CONTINUE FOR 4 DAYS. 08/19/16 17:14 Blood Culture - Preliminary Blood - Peripheral Venous NO GROWTH OBTAINED AFTER 24 HOURS, INCUBATION TO CONTINUE FOR 4 DAYS. PHYSICAL EXAMINATION: Constitutional: Yes: Mild Distress (due to pain). Cardiovascular: Yes: Regular Rate and Rhythm Respiratory: Yes: CTA Bilaterally Gastrointestinal: Yes: Normal Bowel Sounds, Soft, Abdomen, Obese. No: Distention, Tenderness Extremities: Yes: Other (right inguinal LNE +)-- Right thigh tenderness to touch -- No redness Edema: Yes Edema: RLE: 1+ Psychiatric: Yes: Alert, Oriented Problem List - Problems (1) DKA (diabetic ketoacidosis) Code(s): E13.10 - OTH DIABETES MELLITUS WITH KETOACIDOSIS WITHOUT COMA Qualifiers: Diabetes mellitus type: type 1 (2) Leg pain, right Code(s): M79.604 - PAIN IN RIGHT LEG (3) Diabetes mellitus, insulin dependent (IDDM), uncontrolled Code(s): E10.65 - TYPE 1 DIABETES MELLITUS WITH HYPERGLYCEMIA Qualifiers: Diabetes mellitus complication status: with unspecified complications Qualified Code(s): E10.8 - Type 1 diabetes mellitus with unspecified complications; E10.65 - Type 1 diabetes mellitus with hyperglycemia (4) ESRD (end stage renal disease) on dialysis Code(s): N18.6 - END STAGE RENAL DISEASE Z99.2 - DEPENDENCE ON RENAL DIALYSIS (5) Myositis Code(s): M60.9 - MYOSITIS, UNSPECIFIED Qualifiers: Myositis location: thigh Laterality: right ASSESSMENT & PLAN: - Clinically stable but having pain. - Likely lymph node biopsy today. - Hold Heparin for now. - Monitor blood sugars. - Increase Dilaudid for better pain control. - Will follow. Documentation prepared by Mel Barber, acting as a special forces medical sergeant for Valentine Acuña MD.
[2016-08-21] MEDS ORDERED: SENNOSIDES 8.6MG TABLET (FP) PO SCH (10:00)
[2016-08-21] MEDS ORDERED: LOSARTAN POTASSIUM 25 MG TABLET PO SCH (10:00)
[2016-08-21] MEDS ORDERED: CINACALCET HCL 30 MG TAB (FP) PO SCH (10:00)
[2016-08-21] MEDS ORDERED: PT OWN MED DRAWER 7, Y5N ONE ×3 (10:07→21:07)
[2016-08-21] MEDS: PANTOPRAZOLE 40 MG TABLET (FP) PO SCH (10:13)
[2016-08-21] MEDS: CINACALCET HCL 30 MG TAB (FP) PO SCH (10:13)
[2016-08-21] MEDS: SENNOSIDES 8.6MG TABLET (FP) PO SCH (10:13)
[2016-08-21] MEDS: HEPARIN NA (PORCINE) 5,000 UNITS/ML 1ML VIAL SQ SCH ×3 (10:14→21:29)
[2016-08-21] MEDS: LOSARTAN POTASSIUM 25 MG TABLET PO SCH (10:14)
[2016-08-21] MEDS: HYDROmorphone HCL CARPU-JECT 2 MG/1 ML DISP.SYRIN IM PRN (11:30)
[2016-08-21] MEDS ORDERED: INSULIN (NOVOLOG) ASPART 100 UNITS/ML 10ML VIAL ONE ×2 (17:23→21:07)
--- NOTE | 2016-08-21 17:25 | PN ---
Progress Note (short form) - Note Progress Note: Renal Follow up for ESRD on HD Pt seen and examined at the bedside returned from IR, no LN biopsy done pt denies any sob or chest pain continues to have pain in the right thigh Vital Signs Temperature 97.9 F 08/21/16 13:38 Pulse Rate 96 H 08/21/16 13:38 Respiratory Rate 18 08/21/16 13:38 Blood Pressure 153/91 08/21/16 13:38 O2 Sat by Pulse Oximetry (%) 95 08/21/16 09:00 Intake & Output 08/18/16 08/19/16 08/20/16 08/21/16 23:59 23:59 23:59 23:59 Intake Total 50 1085 500 Balance 50 1085 500 Weight 143 lb 11.862 oz 143 lb 140 lb Gen: NAD, awake and alert CVS: RRR, No M/R Lungs: CTA, no rales or wheeze Abd: soft, NT/ND Ext: Trace edema in b/l LE, + tenderness Right Thigh and calf Access: left arm AVF + thrill and bruit CBC, BMP 08/21/16 06:50 08/21/16 06:50 Laboratory Tests 08/21/16 06:50 Phosphorus 5.1 H Albumin 2.5 L Current Medications Acetaminophen (Tylenol -) 325 mg PO Q6H PRN PRN Reason: PAIN LEVEL 6-10 Last Admin: 08/21/16 14:06 Dose: 325 mg Cinacalcet (Sensipar -) 60 mg PO DAILY [facility] Last Admin: 08/21/16 10:13 Dose: 60 mg Clonidine (Catapres -) 0.3 mg PO TID [facility] Last Admin: 08/21/16 13:34 Dose: 0.3 mg Gabapentin (Neurontin -) 100 mg PO TID [facility] Last Admin: 08/21/16 13:34 Dose: 100 mg Heparin Sodium (Porcine) (Heparin -) 5,000 unit SQ BID [facility] Last Admin: 08/21/16 10:14 Dose: Not Given Hydralazine HCl (Apresoline -) 25 mg PO TID [facility] Last Admin: 08/21/16 13:35 Dose: 25 mg Hydromorphone HCl (Dilaudid Injection -) 2 mg IM Q4H PRN PRN Reason: PAIN Last Admin: 08/21/16 11:30 Dose: 2 mg Ibuprofen (Motrin -) 600 mg PO Q6H PRN PRN Reason: FEVER Insulin Aspart (Novolog Vial Sliding Scale -) 1 vial SQ ACHS [facility] PRN Reason: Protocol Last Admin: 08/21/16 11:05 Dose: Not Given Insulin Detemir (Levemir Vial) 10 units SQ BID@0700,2200 [facility] Last Admin: 08/21/16 06:12 Dose: Not Given Labetalol HCl (Normodyne -) 200 mg PO TID [facility] Last Admin: 08/21/16 13:34 Dose: 200 mg Losartan Potassium (Cozaar -) 25 mg PO DAILY [facility] Last Admin: 08/21/16 10:14 Dose: 25 mg Nifedipine (Procardia Xl -) 30 mg PO TID [facility] Oxycodone HCl (Roxicodone -) 10 mg PO Q6H PRN PRN Reason: PAIN LEVEL 6-10 Last Admin: 08/21/16 14:06 Dose: 10 mg Pantoprazole Sodium (Protonix -) 40 mg PO DAILY [facility] Last Admin: 08/21/16 10:13 Dose: 40 mg Senna (Senna -) 1 tab PO DAILY [facility] Last Admin: 08/21/16 10:13 Dose: Not Given Sevelamer Carbonate (Renvela -) 1,600 mg PO TIDCM [facility] Last Admin: 08/21/16 13:33 Dose: 1,600 mg Tramadol HCl (Ultram -) 50 mg PO Q6H PRN PRN Reason: PAIN A/P 25 year old woman well known to our service with PMhx of ESRD on HD, IDDM, PVD Osteomylitis, 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 #ESRD on HD (MWF) no acute indication for dialysis today will plan for treatment tomorrow and to resume MWF schedule next week #DKA now resolved continue sc insulin #Thigh pain and Myositis CT done last week showed edema by the muscles, no collections or abcess Pain control Can use NSAIDs for pain control as pt does not have significant residual renal function work up as per primary #Anemia of CKD good response to 2 units prbc continue high dose epogen with HD #Hypertension continue Nifedpine, Losartan, Clonidine, Labetalol Titrate as needed Thank you Nathan Vo DO
[2016-08-22] MEDS: LABETALOL HCL 200 MG TABLET (FP) PO SCH ×3 (05:50→21:09)
[2016-08-22] MEDS: hydrALAZINE HCL 25 MG TABLET (FP) PO SCH ×3 (05:50→21:09)
[2016-08-22] MEDS: GABAPENTIN 100 MG CAPSULE (FP) PO SCH ×3 (05:50→21:09)
[2016-08-22] MEDS: cloNIDine HCL 0.1 MG TABLET PO SCH ×3 (05:50→21:20)
[2016-08-22] MEDS: ACETAMINOPHEN 325 MG TABLET (FP) PO PRN ×2 (06:19→17:10)
[2016-08-22] MEDS: oxyCODONE HCL 5 MG TABLET PO PRN ×2 (06:19→17:10)
[2016-08-22] MEDS: INSULIN DETEMIR 100 UNITS/ML MDV SQ SCH ×2 (06:20→21:09)
[2016-08-22] MEDS: INSULIN SLIDING SCALE (NOVOLOG) 1 VIAL SQ SCH ×4 (06:20→21:09)
[2016-08-22] MEDS ORDERED: INSULIN (NOVOLOG) ASPART 100 UNITS/ML 10ML VIAL ONE (06:26)
[2016-08-22] MEDS ORDERED: EPOETIN ALFA 20,000 UNIT/1 ML VIAL IVPUSH ONE (08:30)
[2016-08-22 08:35] LABS: MCH 25.9 pg (25.7-33.7); MCHC 33.1 g/dl (32.0-36.0); MEAN CELL VOLUME 78.2 fl (80-96); MEAN PLT VOLUME 8.3 fl (7.5-11.1); PLATELET COUNT 478 K/MM3 (134-434); RDW 17.2 % (11.6-15.6); WHITE BLOOD COUNT 12.8 K/mm3 (4.0-10.0)
[2016-08-22 08:54] LABS: CALCIUM 7.8 mg/dL (8.5-10.1); COCKROFT - GAULT 15.011; CREATININE 6.2 mg/dL (0.55-1.02); PHOSPHOROUS 4.6 mg/dL (2.5-4.9)
[2016-08-22] MEDS: SEVELAMER CARBONATE 800 MG TAB (FP) PO SCH ×3 (10:48→17:09)
--- NOTE | 2016-08-22 11:08 | PN ---
Progress Note, Physician Chief Complaint: The patient seen on dialysis. Still has Right thigh pain and swelling. BP stable on dialysis. Blood Glucose in acceptable range. - Current Medication List Current Medications: Active Medications Acetaminophen (Tylenol -) 325 mg PO Q6H PRN PRN Reason: PAIN LEVEL 6-10 Last Admin: 08/22/16 06:19 Dose: 325 mg Cinacalcet (Sensipar -) 60 mg PO DAILY [facility] Last Admin: 08/21/16 10:13 Dose: 60 mg Clonidine (Catapres -) 0.3 mg PO TID [facility] Last Admin: 08/22/16 05:50 Dose: 0.3 mg Gabapentin (Neurontin -) 100 mg PO TID [facility] Last Admin: 08/22/16 05:50 Dose: 100 mg Heparin Sodium (Porcine) (Heparin -) 5,000 unit SQ BID [facility] Last Admin: 08/21/16 21:29 Dose: Not Given Hydralazine HCl (Apresoline -) 25 mg PO TID [facility] Last Admin: 08/22/16 05:50 Dose: 25 mg Hydromorphone HCl (Dilaudid Injection -) 2 mg IM Q4H PRN PRN Reason: PAIN Last Admin: 08/21/16 11:30 Dose: 2 mg Ibuprofen (Motrin -) 600 mg PO Q6H PRN PRN Reason: FEVER Insulin Aspart (Novolog Vial Sliding Scale -) 1 vial SQ ACHS [facility] PRN Reason: Protocol Last Admin: 08/22/16 06:20 Dose: 2 units Insulin Detemir (Levemir Vial) 10 units SQ BID@0700,2200 [facility] Last Admin: 08/22/16 06:20 Dose: 10 units Labetalol HCl (Normodyne -) 200 mg PO TID [facility] Last Admin: 08/22/16 05:50 Dose: 200 mg Losartan Potassium (Cozaar -) 25 mg PO DAILY [facility] Last Admin: 08/21/16 10:14 Dose: 25 mg Nifedipine (Procardia Xl -) 30 mg PO TID [facility] Oxycodone HCl (Roxicodone -) 10 mg PO Q6H PRN PRN Reason: PAIN LEVEL 6-10 Last Admin: 08/22/16 06:19 Dose: 10 mg Pantoprazole Sodium (Protonix -) 40 mg PO DAILY [facility] Last Admin: 05/19/17 10:13 Dose: 40 mg Senna (Senna -) 1 tab PO DAILY [facility] Last Admin: 08/21/16 10:13 Dose: Not Given Sevelamer Carbonate (Renvela -) 1,600 mg PO TIDCM [facility] Last Admin: 08/22/16 10:48 Dose: Not Given Tramadol HCl (Ultram -) 50 mg PO Q6H PRN PRN Reason: PAIN - Objective Vital Signs: Vital Signs Temperature 98.6 F 08/22/16 07:25 Pulse Rate 87 08/22/16 10:00 Respiratory Rate 18 08/22/16 10:00 Blood Pressure 162/105 08/22/16 10:00 O2 Sat by Pulse Oximetry (%) 95 08/21/16 21:00 Constitutional: Yes: No Distress, Calm Eyes: Yes: Conjunctiva Clear Neck: Yes: Trachea Midline Cardiovascular: Yes: S1 Respiratory: Yes: CTA Bilaterally Gastrointestinal: Yes: Soft Extremities: Yes: Other (Pain and swellingmof the right thigh.) Edema: Yes Edema: RLE: Trace (thigh) Labs: CBC, BMP 08/22/16 07:30 08/22/16 07:30 INR, PTT INR 1.32 (0.82-1.09) H 08/19/16 17:15 Problem List - Problems (1) DKA (diabetic ketoacidosis) Code(s): E13.10 - OTH DIABETES MELLITUS WITH KETOACIDOSIS WITHOUT COMA Qualifiers: Diabetes mellitus type: type 1 (2) Leg pain, right Code(s): M79.604 - PAIN IN RIGHT LEG (3) Leukocytosis Code(s): D72.829 - ELEVATED WHITE BLOOD CELL COUNT, UNSPECIFIED (4) Myositis Code(s): M60.9 - MYOSITIS, UNSPECIFIED Qualifiers: Myositis location: thigh Laterality: right (5) Hyperkalemia Code(s): E87.5 - HYPERKALEMIA (6) Dialysis patient Code(s): Z99.2 - DEPENDENCE ON RENAL DIALYSIS (7) ESRD (end stage renal disease) on dialysis Code(s): N18.6 - END STAGE RENAL DISEASE Z99.2 - DEPENDENCE ON RENAL DIALYSIS (8) HTN (hypertension) Code(s): I10 - ESSENTIAL (PRIMARY) HYPERTENSION Qualifiers: Hypertension type: essential hypertension Qualified Code(s): I10 - Essential (primary) hypertension (9) Anemia Code(s): D64.9 - ANEMIA, UNSPECIFIED Assessment/Plan 25 y/o female with ESRD, admitted with DKA and pain in her Right thigh. Right thigh swelling persists. The patient is extremely non-compliant with diet and medications. Admits to skipping Insulin many times. Had uneventful dialysis yesterday. Next dialysis on Wednesday. Susie Peter MD
[2016-08-22] MEDS: HYDROmorphone HCL CARPU-JECT 2 MG/1 ML DISP.SYRIN IM PRN ×2 (11:46→21:08)
[2016-08-22] MEDS: LOSARTAN POTASSIUM 25 MG TABLET PO SCH (11:47)
[2016-08-22] MEDS: PANTOPRAZOLE 40 MG TABLET (FP) PO SCH (11:47)
[2016-08-22] MEDS: SENNOSIDES 8.6MG TABLET (FP) PO SCH (11:48)
[2016-08-22] MEDS: HEPARIN NA (PORCINE) 5,000 UNITS/ML 1ML VIAL SQ SCH ×2 (11:48→21:12)
[2016-08-22] MEDS: CINACALCET HCL 30 MG TAB (FP) PO SCH (11:52)
--- NOTE | 2016-08-22 12:34 | PN ---
Progress Note (short form) - Note Progress Note: Patient readmitted with hyperglycemia. She states the pain and swelling in the right thigh has not changed. A needle biopsy of the right groin node was not done - unclear if it is rescheduled. No fever Right thigh edema and tenderness along upper lateral thigh and medial thigh. No discrete mass. No crepitance or fluctuance. Right inguinal node ~2-3 cm. WBC 18K USG: Right groin node 3 cm Imp: Chronic inflammation of right thigh without evidence for infection. Cause unclear. Associated lymphadenopathy is likely reactive. Rec: Evaluation by Rheumatology and Orthopedic Surgery may be helpful in trying to elucidate the cause of the unilateral muscle inflammation. I doubt a muscle biopsy will be diagnostic. Aspiration of the edema fluid and lymph node biopsy still recommended.
[2016-08-22] MEDS ORDERED: PT OWN MED DRAWER 7, Y5N ONE (21:15)
[2016-08-23] MEDS: ACETAMINOPHEN 325 MG TABLET (FP) PO PRN ×4 (00:29→22:19)
[2016-08-23] MEDS: oxyCODONE HCL 5 MG TABLET PO PRN ×4 (00:29→22:19)
[2016-08-23] MEDS: hydrALAZINE HCL 25 MG TABLET (FP) PO SCH ×3 (06:26→22:19)
[2016-08-23] MEDS: GABAPENTIN 100 MG CAPSULE (FP) PO SCH ×3 (06:26→22:18)
[2016-08-23] MEDS: LABETALOL HCL 200 MG TABLET (FP) PO SCH ×3 (06:26→22:18)
[2016-08-23] MEDS: INSULIN DETEMIR 100 UNITS/ML MDV SQ SCH ×2 (06:27→22:19)
[2016-08-23] MEDS: cloNIDine HCL 0.1 MG TABLET PO SCH ×3 (06:27→22:18)
[2016-08-23] MEDS: INSULIN SLIDING SCALE (NOVOLOG) 1 VIAL SQ SCH ×4 (06:27→22:23)
[2016-08-23] MEDS: HYDROmorphone HCL CARPU-JECT 2 MG/1 ML DISP.SYRIN IM PRN ×3 (06:30→17:31)
[2016-08-23] MEDS: SEVELAMER CARBONATE 800 MG TAB (FP) PO SCH ×3 (08:32→17:20)
[2016-08-23] MEDS ORDERED: PT OWN MED DRAWER 7, Y5N ONE ×3 (08:59→22:13)
[2016-08-23] MEDS: SENNOSIDES 8.6MG TABLET (FP) PO SCH (09:01)
[2016-08-23] MEDS: LOSARTAN POTASSIUM 25 MG TABLET PO SCH (09:01)
[2016-08-23] MEDS: PANTOPRAZOLE 40 MG TABLET (FP) PO SCH (09:01)
[2016-08-23] MEDS: HEPARIN NA (PORCINE) 5,000 UNITS/ML 1ML VIAL SQ SCH ×2 (09:05→22:14)
[2016-08-23] MEDS: CINACALCET HCL 30 MG TAB (FP) PO SCH (09:06)
--- NOTE | 2016-08-23 11:21 | PN ---
Progress Note (short form) - Note Progress Note: late note entry Pt was seen yesterday--08/22/18 in dialysis there were no new issues continue to have pain in right leg LN BIOPSY NOT DONE NO LN THERE FOR BIOPSY Exam was unchanged lungs- clear [facility]- s1, s2 rrr abd -soft ext- right thigh swelling Labs - noted a/p stable continue present care surgery to follow monitor bgm will follow
--- NOTE | 2016-08-23 11:24 | PN ---
Progress Note (short form) - Note Progress Note: pt seen/ examined today no new issues feels ok except pain in right thigh Vital Signs Period Temp Pulse Resp BP Sys/Ames Pulse Ox Last 24 Hr 98.1 F-98.8 F 80-93 18-20 144-177/77-103 95 Active Medications Acetaminophen (Tylenol -) 325 mg PO Q6H PRN PRN Reason: PAIN LEVEL 6-10 Last Admin: 08/23/16 09:02 Dose: 325 mg Cinacalcet (Sensipar -) 60 mg PO DAILY [facility] Last Admin: 08/23/16 09:06 Dose: 60 mg Clonidine (Catapres -) 0.3 mg PO TID [facility] Last Admin: 08/23/16 06:27 Dose: 0.3 mg Epoetin Abiel (Procrit -) 20,000 unit SQ ONCE ONE Stop: 08/24/16 11:10 Gabapentin (Neurontin -) 100 mg PO TID [facility] Last Admin: 08/23/16 06:26 Dose: 100 mg Heparin Sodium (Porcine) (Heparin -) 5,000 unit SQ BID [facility] Last Admin: 08/23/16 09:05 Dose: Not Given Hydralazine HCl (Apresoline -) 25 mg PO TID [facility] Last Admin: 08/23/16 06:26 Dose: 25 mg Hydromorphone HCl (Dilaudid Injection -) 2 mg IM Q4H PRN PRN Reason: PAIN Last Admin: 08/23/16 06:30 Dose: 2 mg Ibuprofen (Motrin -) 600 mg PO Q6H PRN PRN Reason: FEVER Insulin Aspart (Novolog Vial Sliding Scale -) 1 vial SQ ACHS [facility] PRN Reason: Protocol Last Admin: 08/23/16 06:27 Dose: Not Given Insulin Detemir (Levemir Vial) 10 units SQ BID@0700,2200 [facility] Last Admin: 08/23/16 06:27 Dose: Not Given Labetalol HCl (Normodyne -) 200 mg PO TID [facility] Last Admin: 08/23/16 06:26 Dose: 200 mg Losartan Potassium (Cozaar -) 25 mg PO DAILY [facility] Last Admin: 08/23/16 09:01 Dose: 25 mg Nifedipine (Procardia Xl -) 30 mg PO TID [facility] Oxycodone HCl (Roxicodone -) 10 mg PO Q6H PRN PRN Reason: PAIN LEVEL 6-10 Last Admin: 08/23/16 09:01 Dose: 10 mg Pantoprazole Sodium (Protonix -) 40 mg PO DAILY [facility] Last Admin: 08/23/16 09:01 Dose: 40 mg Senna (Senna -) 1 tab PO DAILY [facility] Last Admin: 08/23/16 09:01 Dose: 1 tab Sevelamer Carbonate (Renvela -) 1,600 mg PO TIDCM [facility] Last Admin: 08/23/16 08:32 Dose: 1,600 mg Tramadol HCl (Ultram -) 50 mg PO Q6H PRN PRN Reason: PAIN CBC, BMP 08/22/16 07:30 08/22/16 07:30 PHYSICAL EXAMINATION: Constitutional: Yes: No Distress/ comfortable Cardiovascular: Yes: Regular Rate and Rhythm Respiratory: Yes: CTA Bilaterally Gastrointestinal: Yes: Normal Bowel Sounds, Soft, Abdomen, Obese. No: Distention, Tenderness Extremities: Yes: -- Right thigh tenderness to touch -- No redness Edema: Yes Edema: RLE: 1+ Psychiatric: Yes: Alert, Oriented Problem List - Problems (1) DKA (diabetic ketoacidosis) Code(s): E13.10 - OTH DIABETES MELLITUS WITH KETOACIDOSIS WITHOUT COMA Qualifiers: Diabetes mellitus type: type 1 (2) Leg pain, right Code(s): M79.604 - PAIN IN RIGHT LEG (3) Diabetes mellitus, insulin dependent (IDDM), uncontrolled Code(s): E10.65 - TYPE 1 DIABETES MELLITUS WITH HYPERGLYCEMIA Qualifiers: Diabetes mellitus complication status: with unspecified complications Qualified Code(s): E10.8 - Type 1 diabetes mellitus with unspecified complications; E10.65 - Type 1 diabetes mellitus with hyperglycemia (4) ESRD (end stage renal disease) on dialysis Code(s): N18.6 - END STAGE RENAL DISEASE Z99.2 - DEPENDENCE ON RENAL DIALYSIS (5) Myositis Code(s): M60.9 - MYOSITIS, UNSPECIFIED Qualifiers: Myositis location: thigh Laterality: right ASSESSMENT & PLAN: - Clinically stable but having pain. - continue present care - monitor bgm. -- will discuss with Dr. Bennett -- will follow.
[2016-08-23] MEDS ORDERED: INSULIN (NOVOLOG) ASPART 100 UNITS/ML 10ML VIAL ONE (11:28)
[2016-08-23] MEDS: NIFEdipine E.R. 90 MG TABLET (FP) PO SCH ×2 (14:26→14:35)
--- NOTE | 2016-08-23 16:41 | PN ---
Progress Note, Physician Chief Complaint: The patient is feeling better, except for the thigh pains. The right thigh is still quite swollen. Denies any chest pains. No shortness of breath. Grand mother visiting. - Current Medication List Current Medications: Active Medications Acetaminophen (Tylenol -) 325 mg PO Q6H PRN PRN Reason: PAIN LEVEL 6-10 Last Admin: 08/23/16 15:06 Dose: 325 mg Cinacalcet (Sensipar -) 60 mg PO DAILY [facility] Last Admin: 08/23/16 09:06 Dose: 60 mg Clonidine (Catapres -) 0.3 mg PO TID [facility] Last Admin: 08/23/16 14:26 Dose: 0.3 mg Epoetin Abiel (Procrit -) 20,000 unit IVPUSH ONCE ONE Stop: 08/24/16 12:01 Gabapentin (Neurontin -) 100 mg PO TID [facility] Last Admin: 08/23/16 14:26 Dose: 100 mg Heparin Sodium (Porcine) (Heparin -) 5,000 unit SQ BID [facility] Last Admin: 08/23/16 09:05 Dose: Not Given Hydralazine HCl (Apresoline -) 25 mg PO TID [facility] Last Admin: 08/23/16 14:26 Dose: 25 mg Hydromorphone HCl (Dilaudid Injection -) 2 mg IM Q4H PRN PRN Reason: PAIN Last Admin: 08/23/16 11:41 Dose: 2 mg Ibuprofen (Motrin -) 600 mg PO Q6H PRN PRN Reason: FEVER Insulin Aspart (Novolog Vial Sliding Scale -) 1 vial SQ ACHS [facility] PRN Reason: Protocol Last Admin: 08/23/16 11:45 Dose: Not Given Insulin Detemir (Levemir Vial) 10 units SQ BID@0700,2200 [facility] Last Admin: 08/23/16 06:27 Dose: Not Given Labetalol HCl (Normodyne -) 200 mg PO TID [facility] Last Admin: 08/23/16 14:26 Dose: 200 mg Losartan Potassium (Cozaar -) 25 mg PO DAILY [facility] Last Admin: 08/23/16 09:01 Dose: 25 mg Nifedipine (Procardia Xl -) 30 mg PO BID [facility] Oxycodone HCl (Roxicodone -) 10 mg PO Q6H PRN PRN Reason: PAIN LEVEL 6-10 Last Admin: 08/23/16 15:06 Dose: 10 mg Pantoprazole Sodium (Protonix -) 40 mg PO DAILY [facility] Last Admin: 08/23/16 09:01 Dose: 40 mg Senna (Senna -) 1 tab PO DAILY [facility] Last Admin: 08/23/16 09:01 Dose: 1 tab Sevelamer Carbonate (Renvela -) 1,600 mg PO TIDCM [facility] Last Admin: 08/23/16 11:41 Dose: 1,600 mg - Objective Vital Signs: Vital Signs Temperature 98.4 F 08/23/16 13:53 Pulse Rate 90 08/23/16 13:53 Respiratory Rate 20 08/23/16 13:53 Blood Pressure 135/90 08/23/16 13:53 O2 Sat by Pulse Oximetry (%) 96 08/23/16 09:00 Constitutional: Yes: No Distress, Calm Eyes: Yes: Conjunctiva Clear HENT: Yes: Normocephalic Cardiovascular: Yes: S1, S2 Respiratory: Yes: Regular, Diminished Gastrointestinal: Yes: Normal Bowel Sounds, Soft Labs: CBC, BMP 08/22/16 07:30 08/22/16 07:30 INR, PTT INR 1.32 (0.82-1.09) H 08/19/16 17:15 Problem List - Problems (1) DKA (diabetic ketoacidosis) Code(s): E13.10 - OTH DIABETES MELLITUS WITH KETOACIDOSIS WITHOUT COMA Qualifiers: Diabetes mellitus type: type 1 (2) Leg pain, right Code(s): M79.604 - PAIN IN RIGHT LEG (3) Leukocytosis Code(s): D72.829 - ELEVATED WHITE BLOOD CELL COUNT, UNSPECIFIED (4) Myositis Code(s): M60.9 - MYOSITIS, UNSPECIFIED Qualifiers: Myositis location: thigh Laterality: right (5) Hyperkalemia Code(s): E87.5 - HYPERKALEMIA (6) Dialysis patient Code(s): Z99.2 - DEPENDENCE ON RENAL DIALYSIS (7) ESRD (end stage renal disease) on dialysis Code(s): N18.6 - END STAGE RENAL DISEASE Z99.2 - DEPENDENCE ON RENAL DIALYSIS (8) HTN (hypertension) Code(s): I10 - ESSENTIAL (PRIMARY) HYPERTENSION Qualifiers: Hypertension type: essential hypertension Qualified Code(s): I10 - Essential (primary) hypertension (9) Anemia Code(s): D64.9 - ANEMIA, UNSPECIFIED Assessment/Plan 25 y/o female with ESRD, has severe right thigh pain, swelling. The abdominal pain improved. The blood glucose in better range. Plan: HD tomorrow. For possible muscle bx . Susie Peter MD
[2016-08-23] MEDS: NIFEdipine E.R. 30 MG TABLET (FP) PO SCH (22:19)
[2016-08-24] MEDS: HYDROmorphone HCL CARPU-JECT 2 MG/1 ML DISP.SYRIN IM PRN (01:31)
[2016-08-24] MEDS: INSULIN DETEMIR 100 UNITS/ML MDV SQ SCH ×2 (06:10→21:46)
[2016-08-24] MEDS: INSULIN SLIDING SCALE (NOVOLOG) 1 VIAL SQ SCH ×4 (06:11→21:46)
[2016-08-24] MEDS: GABAPENTIN 100 MG CAPSULE (FP) PO SCH ×3 (06:11→21:44)
[2016-08-24] MEDS: hydrALAZINE HCL 25 MG TABLET (FP) PO SCH ×3 (06:21→21:45)
[2016-08-24] MEDS: cloNIDine HCL 0.1 MG TABLET PO SCH ×3 (06:21→21:45)
[2016-08-24] MEDS: LABETALOL HCL 200 MG TABLET (FP) PO SCH ×3 (06:22→21:45)
[2016-08-24] MEDS: oxyCODONE HCL 5 MG TABLET PO PRN ×3 (06:33→21:44)
[2016-08-24] MEDS: ACETAMINOPHEN 325 MG TABLET (FP) PO PRN ×3 (06:33→21:45)
--- NOTE | 2016-08-24 08:25 | PN ---
Progress Note (short form) - Note Progress Note: Subjective Patient seen and examined in HD today. Feels better. Pain present but decreased. No new issues. Blood sugar better and under control. Objective Last Vital Signs Temp Pulse Resp BP Pulse Ox 98.1 F 83 18 118/65 96 08/24/16 07:46 08/24/16 07:46 08/24/16 07:46 08/24/16 07:46 08/23/16 21:00 Laboratory Results - last 24 hr 08/20/16 08/23/16 08/23/16 10:30 11:44 17:22 POC Glucometer 120 349 Blood Type B POSITIVE Antibody Screen Negative Crossmatch See Detail 08/23/16 08/24/16 08/24/16 21:04 01:24 01:25 POC Glucometer 201 188 173 Blood Type Antibody Screen Crossmatch 08/24/16 06:08 POC Glucometer 85 Blood Type Antibody Screen Crossmatch Physical Exam Constitutional: Yes: No Distress/ comfortable Cardiovascular: Yes: Regular Rate and Rhythm Respiratory: Yes: CTA Bilaterally Gastrointestinal: Yes: Normal Bowel Sounds, Soft, Abdomen, Obese. No: Distention, Tenderness Extremities: Yes: -- Right thigh decreased tenderness Edema: Yes Edema: RLE: 1+ Psychiatric: Yes: Alert, Oriented Problem List - Problems (1) DKA (diabetic ketoacidosis) Code(s): E13.10 - OTH DIABETES MELLITUS WITH KETOACIDOSIS WITHOUT COMA Qualifiers: Diabetes mellitus type: type 1 (2) Leg pain, right Code(s): M79.604 - PAIN IN RIGHT LEG (3) Diabetes mellitus, insulin dependent (IDDM), uncontrolled Code(s): E10.65 - TYPE 1 DIABETES MELLITUS WITH HYPERGLYCEMIA Qualifiers: Diabetes mellitus complication status: with unspecified complications Qualified Code(s): E10.8 - Type 1 diabetes mellitus with unspecified complications; E10.65 - Type 1 diabetes mellitus with hyperglycemia (4) ESRD (end stage renal disease) on dialysis Code(s): N18.6 - END STAGE RENAL DISEASE Z99.2 - DEPENDENCE ON RENAL DIALYSIS (5) Myositis Code(s): M60.9 - MYOSITIS, UNSPECIFIED Qualifiers: Myositis location: thigh Laterality: right ASSESSMENT & PLAN: - Clinically stable - continue present care - will decrease dose of dilaudid - monitor bgm. --Dr. Ng to follow -- Muscle biopsy ?? -- will follow. Documentation prepared by Nicole Strong, acting as a medical artist for Valentine Acuña MD.
[2016-08-24] MEDS: SEVELAMER CARBONATE 800 MG TAB (FP) PO SCH ×3 (09:00→16:56)
[2016-08-24 10:20] LABS: BASOPHIL 0.8 % (0-2.0); EOSINOPHIL 1.5 % (0-4.5); MCHC 31.2 g/dl (32.0-36.0); MEAN PLT VOLUME 8.1 fl (7.5-11.1); NEUTROPHILS 74.9 % (42.8-82.8); PLATELET COUNT 422 K/MM3 (134-434); RDW 17.3 % (11.6-15.6); WHITE BLOOD COUNT 11.2 K/mm3 (4.0-10.0)
[2016-08-24] MEDS ORDERED: PT OWN MED DRAWER 7, Y5N ONE ×3 (10:22→21:33)
[2016-08-24 10:45] LABS: ALBUMIN 2.1 g/dl (3.4-5.0); BILIRUBIN,TOTAL 0.6 mg/dL (0.2-1.0); CALCIUM 7.4 mg/dL (8.5-10.1); COCKROFT - GAULT 15.555; CREATININE 5.8 mg/dL (0.55-1.02); TOT PROT 6.9 g/dl (6.4-8.2)
[2016-08-24] MEDS: HYDROmorphone HCL CARPU-JECT 1 MG/1 ML DISP.SYRIN IM PRN ×2 (10:58→16:56)
[2016-08-24] MEDS ORDERED: EPOETIN ALFA 20,000 UNIT/1 ML VIAL IVPUSH ONE (11:00)
[2016-08-24] MEDS: NIFEdipine E.R. 30 MG TABLET (FP) PO SCH ×2 (13:54→21:45)
[2016-08-24] MEDS: HEPARIN NA (PORCINE) 5,000 UNITS/ML 1ML VIAL SQ SCH ×2 (13:54→21:45)
[2016-08-24] MEDS: LOSARTAN POTASSIUM 25 MG TABLET PO SCH (13:54)
[2016-08-24] MEDS: SENNOSIDES 8.6MG TABLET (FP) PO SCH ×2 (13:54→14:00)
[2016-08-24] MEDS: PANTOPRAZOLE 40 MG TABLET (FP) PO SCH (13:54)
[2016-08-24] MEDS: CINACALCET HCL 30 MG TAB (FP) PO SCH (13:56)
--- NOTE | 2016-08-24 14:49 | PN ---
Progress Note, Physician Chief Complaint: The patient seen on HD. Complains of severe pain in the right thigh. The thigh remains swollen. Awaiting surgical evaluation for possible Muscle biopsy. - Current Medication List Current Medications: Active Medications Acetaminophen (Tylenol -) 325 mg PO Q6H PRN PRN Reason: PAIN LEVEL 6-10 Last Admin: 08/24/16 13:55 Dose: 325 mg Cinacalcet (Sensipar -) 60 mg PO DAILY [facility] Last Admin: 08/24/16 13:56 Dose: 60 mg Clonidine (Catapres -) 0.3 mg PO TID [facility] Last Admin: 08/24/16 06:21 Dose: Not Given Gabapentin (Neurontin -) 100 mg PO TID [facility] Last Admin: 08/24/16 06:11 Dose: 100 mg Heparin Sodium (Porcine) (Heparin -) 5,000 unit SQ BID [facility] Last Admin: 08/24/16 13:54 Dose: Not Given Hydralazine HCl (Apresoline -) 25 mg PO TID [facility] Last Admin: 08/24/16 06:21 Dose: Not Given Hydromorphone HCl (Dilaudid Injection -) 1 mg IM Q4H PRN PRN Reason: PAIN Last Admin: 08/24/16 10:58 Dose: 1 mg Ibuprofen (Motrin -) 600 mg PO Q6H PRN PRN Reason: FEVER Insulin Aspart (Novolog Vial Sliding Scale -) 1 vial SQ ACHS [facility] PRN Reason: Protocol Last Admin: 08/24/16 12:15 Dose: Not Given Insulin Detemir (Levemir Vial) 10 units SQ BID@0700,2200 [facility] Last Admin: 08/24/16 06:10 Dose: Not Given Labetalol HCl (Normodyne -) 200 mg PO TID [facility] Last Admin: 08/24/16 06:22 Dose: Not Given Losartan Potassium (Cozaar -) 25 mg PO DAILY [facility] Last Admin: 08/24/16 13:54 Dose: 25 mg Nifedipine (Procardia Xl -) 30 mg PO BID [facility] Last Admin: 08/24/16 13:54 Dose: 30 mg Oxycodone HCl (Roxicodone -) 10 mg PO Q6H PRN PRN Reason: PAIN LEVEL 6-10 Last Admin: 08/24/16 13:55 Dose: 10 mg Pantoprazole Sodium (Protonix -) 40 mg PO DAILY [facility] Last Admin: 08/24/16 13:54 Dose: 40 mg Senna (Senna -) 1 tab PO DAILY [facility] Last Admin: 08/24/16 14:00 Dose: Not Given Sevelamer Carbonate (Renvela -) 1,600 mg PO TIDCM [facility] Last Admin: 08/24/16 13:00 Dose: Not Given - Objective Vital Signs: Vital Signs Temperature 98.2 F 08/24/16 14:01 Pulse Rate 95 H 08/24/16 14:01 Respiratory Rate 18 08/24/16 14:01 Blood Pressure 133/79 08/24/16 14:01 O2 Sat by Pulse Oximetry (%) 95 08/24/16 09:00 Constitutional: Yes: Moderate Distress HENT: Yes: Atraumatic Neck: Yes: Trachea Midline Cardiovascular: Yes: S1, S2 Respiratory: Yes: CTA Bilaterally Gastrointestinal: Yes: Normal Bowel Sounds Genitourinary: No: CVA Tenderness - Left, CVA Tenderness - Right Musculoskeletal: Yes: Muscle Pain (Swollen right thigh) Extremities: Yes: Other (as above) Neurological: Yes: Alert Labs: CBC, BMP 08/24/16 09:15 08/24/16 09:15 INR, PTT INR 1.32 (0.82-1.09) H 08/19/16 17:15 Problem List - Problems (1) DKA (diabetic ketoacidosis) Code(s): E13.10 - OTH DIABETES MELLITUS WITH KETOACIDOSIS WITHOUT COMA Qualifiers: Diabetes mellitus type: type 1 (2) Leg pain, right Code(s): M79.604 - PAIN IN RIGHT LEG (3) Leukocytosis Code(s): D72.829 - ELEVATED WHITE BLOOD CELL COUNT, UNSPECIFIED (4) Myositis Code(s): M60.9 - MYOSITIS, UNSPECIFIED Qualifiers: Myositis location: thigh Laterality: right (5) Hyperkalemia Code(s): E87.5 - HYPERKALEMIA (6) Dialysis patient Code(s): Z99.2 - DEPENDENCE ON RENAL DIALYSIS (7) ESRD (end stage renal disease) on dialysis Code(s): N18.6 - END STAGE RENAL DISEASE Z99.2 - DEPENDENCE ON RENAL DIALYSIS (8) HTN (hypertension) Code(s): I10 - ESSENTIAL (PRIMARY) HYPERTENSION Qualifiers: Hypertension type: essential hypertension Qualified Code(s): I10 - Essential (primary) hypertension (9) Anemia Code(s): D64.9 - ANEMIA, UNSPECIFIED Assessment/Plan 25 y/o female with ESRD, has severe right thigh pain, swelling. Awaiting Muscle Biopsy. The blood glucose in better range. HD orders reviewwed with the RN. Plan: Muscle Biopsy awaited Susie Peter MD
[2016-08-24] MEDS ORDERED: EPOETIN ALFA 20,000 UNIT/1 ML VIAL SQ ONE (15:00)
[2016-08-24] MEDS ORDERED: INSULIN (NOVOLOG) ASPART 100 UNITS/ML 10ML VIAL ONE (17:09)
[2016-08-25] MEDS: HYDROmorphone HCL CARPU-JECT 1 MG/1 ML DISP.SYRIN IM PRN ×3 (01:22→20:50)
[2016-08-25] MEDS: cloNIDine HCL 0.1 MG TABLET PO SCH ×3 (06:32→22:14)
[2016-08-25] MEDS: LABETALOL HCL 200 MG TABLET (FP) PO SCH ×3 (06:33→21:15)
[2016-08-25] MEDS: INSULIN SLIDING SCALE (NOVOLOG) 1 VIAL SQ SCH ×4 (06:33→21:16)
[2016-08-25] MEDS: hydrALAZINE HCL 25 MG TABLET (FP) PO SCH ×3 (06:33→21:15)
[2016-08-25] MEDS: GABAPENTIN 100 MG CAPSULE (FP) PO SCH ×3 (06:33→21:15)
[2016-08-25] MEDS: ACETAMINOPHEN 325 MG TABLET (FP) PO PRN (06:35)
[2016-08-25] MEDS: oxyCODONE HCL 5 MG TABLET PO PRN ×2 (06:35→13:31)
[2016-08-25] MEDS ORDERED: PT OWN MED DRAWER 7, Y5N ONE ×4 (06:53→15:21)
[2016-08-25] MEDS: SEVELAMER CARBONATE 800 MG TAB (FP) PO SCH ×3 (09:17→17:05)
[2016-08-25] MEDS: PANTOPRAZOLE 40 MG TABLET (FP) PO SCH (09:18)
[2016-08-25] MEDS: LOSARTAN POTASSIUM 25 MG TABLET PO SCH (09:18)
[2016-08-25] MEDS: CINACALCET HCL 30 MG TAB (FP) PO SCH (09:18)
[2016-08-25] MEDS: NIFEdipine E.R. 30 MG TABLET (FP) PO SCH ×2 (09:18→21:15)
[2016-08-25] MEDS: SENNOSIDES 8.6MG TABLET (FP) PO SCH (09:19)
[2016-08-25] MEDS: HEPARIN NA (PORCINE) 5,000 UNITS/ML 1ML VIAL SQ SCH ×2 (09:19→21:16)
[2016-08-25] MEDS: INSULIN DETEMIR 100 UNITS/ML MDV SQ SCH ×2 (09:42→21:13)
--- NOTE | 2016-08-25 10:32 | SPA.PREOP ---
- PRE-OP NOTE Dx: Lymphadenopathy Planned Procedure: Right inguinal lymph node biopsy and muscle biopsy Surgeon: Jose Ng Consent: To be obtained by surgeon after risks, benefits and alternatives explained to patient. Last Vital Signs Temp Pulse Resp BP Pulse Ox 98.3 F 85 21 132/75 95 08/25/16 05:53 08/25/16 05:53 08/25/16 05:53 08/25/16 05:53 08/24/16 21:00 Lab Results WBC 11.2 K/mm3 (4.0-10.0) H 08/24/16 09:15 RBC 3.41 M/mm3 (3.60-5.2) L 08/24/16 09:15 Hgb 8.5 GM/dL (10.7-15.3) L 08/24/16 09:15 Hct 27.3 % (32.4-45.2) L 08/24/16 09:15 MCV 80.0 fl (80-96) 08/24/16 09:15 MCHC 31.2 g/dl (32.0-36.0) L 08/24/16 09:15 RDW 17.3 % (11.6-15.6) H 08/24/16 09:15 Plt Count 422 K/MM3 (134-434) 08/24/16 09:15 Sodium 136 mmol/L (136-145) 08/24/16 09:15 Potassium 4.7 mmol/L (3.5-5.1) 08/24/16 09:15 Chloride 92 mmol/L (98-107) L 08/24/16 09:15 Carbon Dioxide 33 mmol/L (21-32) H D 08/24/16 09:15 Anion Gap 11 (8-16) 08/24/16 09:15 BUN 37 mg/dL (7-18) H D 08/24/16 09:15 Creatinine 5.8 mg/dL (0.55-1.02) H 08/24/16 09:15 Random Glucose 79 mg/dL (74-106) D 08/24/16 09:15 Calcium 7.4 mg/dL (8.5-10.1) L 08/24/16 09:15 Blood Type B POSITIVE 08/20/16 10:30 Antibody Screen Negative 08/20/16 10:30 INR 1.32 (0.82-1.09) H 08/19/16 17:15 - ASSESSMENT/PLAN 1. NPO after midnight except po meds 2. GI/DVT PPX 3. Medical optimization / clearance Visit type - Case Type Case Type: ED Admission - New patient This patient is new to me today: Yes Date on this admission: 08/25/16
--- NOTE | 2016-08-25 11:22 | PN ---
Progress Note, Physician Chief Complaint: has pain in rt leg - Current Medication List Current Medications: Active Medications Acetaminophen (Tylenol -) 325 mg PO Q6H PRN PRN Reason: PAIN LEVEL 6-10 Last Admin: 08/25/16 06:35 Dose: 325 mg Cinacalcet (Sensipar -) 60 mg PO DAILY [facility] Last Admin: 08/25/16 09:18 Dose: 60 mg Clonidine (Catapres -) 0.3 mg PO TID [facility] Last Admin: 08/25/16 06:32 Dose: 0.3 mg Gabapentin (Neurontin -) 100 mg PO TID [facility] Last Admin: 08/25/16 06:33 Dose: 100 mg Heparin Sodium (Porcine) (Heparin -) 5,000 unit SQ BID [facility] Last Admin: 08/25/16 09:19 Dose: Not Given Hydralazine HCl (Apresoline -) 25 mg PO TID [facility] Last Admin: 08/25/16 06:33 Dose: 25 mg Hydromorphone HCl (Dilaudid Injection -) 1 mg IM Q4H PRN PRN Reason: PAIN Last Admin: 08/25/16 09:43 Dose: 1 mg Ibuprofen (Motrin -) 600 mg PO Q6H PRN PRN Reason: FEVER Insulin Aspart (Novolog Vial Sliding Scale -) 1 vial SQ ACHS [facility] PRN Reason: Protocol Last Admin: 08/25/16 06:33 Dose: 6 units Insulin Detemir (Levemir Vial) 10 units SQ BID@0700,2200 [facility] Last Admin: 08/25/16 09:42 Dose: 10 units Labetalol HCl (Normodyne -) 200 mg PO TID [facility] Last Admin: 08/25/16 06:33 Dose: 200 mg Losartan Potassium (Cozaar -) 25 mg PO DAILY [facility] Last Admin: 08/25/16 09:18 Dose: 25 mg Nifedipine (Procardia Xl -) 30 mg PO BID [facility] Last Admin: 08/25/16 09:18 Dose: 30 mg Oxycodone HCl (Roxicodone -) 10 mg PO Q6H PRN PRN Reason: PAIN LEVEL 6-10 Last Admin: 08/25/16 06:35 Dose: 10 mg Pantoprazole Sodium (Protonix -) 40 mg PO DAILY [facility] Last Admin: 08/25/16 09:18 Dose: 40 mg Senna (Senna -) 1 tab PO DAILY [facility] Last Admin: 08/25/16 09:19 Dose: Not Given Sevelamer Carbonate (Renvela -) 1,600 mg PO TIDCM [facility] Last Admin: 08/25/16 09:17 Dose: 1,600 mg - Objective Vital Signs: Vital Signs Temperature 98 F 08/25/16 09:00 Pulse Rate 80 08/25/16 09:00 Respiratory Rate 20 08/25/16 09:00 Blood Pressure 110/65 08/25/16 09:00 O2 Sat by Pulse Oximetry (%) 95 08/24/16 21:00 Constitutional: Yes: No Distress Cardiovascular: Yes: Regular Rate and Rhythm Respiratory: Yes: CTA Bilaterally Gastrointestinal: Yes: Normal Bowel Sounds, Soft. No: Distention, Tenderness Edema: Yes Edema: RLE: 1+ Labs: CBC, BMP 08/24/16 09:15 08/24/16 09:15 INR, PTT INR 1.32 (0.82-1.09) H 08/19/16 17:15 Problem List - Problems (1) DKA (diabetic ketoacidosis) Code(s): E13.10 - OTH DIABETES MELLITUS WITH KETOACIDOSIS WITHOUT COMA Qualifiers: Diabetes mellitus type: type 1 (2) Leg pain, right Code(s): M79.604 - PAIN IN RIGHT LEG (3) Diabetes mellitus, insulin dependent (IDDM), uncontrolled Code(s): E10.65 - TYPE 1 DIABETES MELLITUS WITH HYPERGLYCEMIA Qualifiers: Diabetes mellitus complication status: with unspecified complications Qualified Code(s): E10.8 - Type 1 diabetes mellitus with unspecified complications; E10.65 - Type 1 diabetes mellitus with hyperglycemia (4) ESRD (end stage renal disease) on dialysis Code(s): N18.6 - END STAGE RENAL DISEASE Z99.2 - DEPENDENCE ON RENAL DIALYSIS (5) Myositis Code(s): M60.9 - MYOSITIS, UNSPECIFIED Qualifiers: Myositis location: thigh Laterality: right Assessment/Plan PLAN HD as scheduled Continue with glucose control For OR tomorrow for LN biopsy , fluid aspiration right leg continue with pain control physical therapy
[2016-08-25] MEDS ORDERED: INSULIN DETEMIR 100 UNITS/ML MDV SQ ONE (11:41)
[2016-08-25] MEDS ORDERED: INSULIN (NOVOLOG) ASPART 100 UNITS/ML 10ML VIAL ONE ×3 (11:41→16:59)
--- NOTE | 2016-08-25 14:44 | PN ---
Progress Note (short form) - Note Progress Note: Renal Follow up for ESRD on HD Pt seen and examined at the bedside ambulating with PT less pain in thigh but on pain meds denies an sob, chest pain, fever, chills s/p dialysis yesterday Vital Signs Temperature 98 F 08/25/16 09:00 Pulse Rate 80 08/25/16 09:00 Respiratory Rate 20 08/25/16 09:00 Blood Pressure 110/65 08/25/16 09:00 O2 Sat by Pulse Oximetry (%) 95 08/24/16 21:00 Intake & Output 08/22/16 08/23/16 08/24/16 08/25/16 23:59 23:59 23:59 23:59 Intake Total 1003 400 500 350 Output Total 0 0 Balance 1003 400 500 350 Weight 152 lb 8 oz 148 lb 1 oz 150 lb Gen: NAD, awake and alert CVS: RRR, No M/R Lungs: CTA, no rales or wheeze Abd: soft, NT/ND Ext: Trace edema in b/l LE, + tenderness Right Thigh and calf Access: left arm AVF + thrill and bruit CBC, BMP 08/24/16 09:15 08/24/16 09:15 Laboratory Tests 08/24/16 09:15 Calcium 7.4 L Albumin 2.1 L Current Medications Acetaminophen (Tylenol -) 325 mg PO Q6H PRN PRN Reason: PAIN LEVEL 6-10 Last Admin: 08/25/16 06:35 Dose: 325 mg Cinacalcet (Sensipar -) 60 mg PO DAILY [facility] Last Admin: 08/25/16 09:18 Dose: 60 mg Clonidine (Catapres -) 0.3 mg PO TID [facility] Last Admin: 08/25/16 06:32 Dose: 0.3 mg Gabapentin (Neurontin -) 100 mg PO TID [facility] Last Admin: 08/25/16 13:30 Dose: 100 mg Heparin Sodium (Porcine) (Heparin -) 5,000 unit SQ BID [facility] Last Admin: 08/25/16 09:19 Dose: Not Given Hydralazine HCl (Apresoline -) 25 mg PO TID [facility] Last Admin: 08/25/16 13:30 Dose: 25 mg Hydromorphone HCl (Dilaudid Injection -) 1 mg IM Q4H PRN PRN Reason: PAIN Last Admin: 08/25/16 09:43 Dose: 1 mg Ibuprofen (Motrin -) 600 mg PO Q6H PRN PRN Reason: FEVER Insulin Aspart (Novolog Vial Sliding Scale -) 1 vial SQ ACHS [facility] PRN Reason: Protocol Last Admin: 08/25/16 11:49 Dose: 6 units Insulin Detemir (Levemir Vial) 10 units SQ BID@0700,2200 [facility] Last Admin: 08/25/16 09:42 Dose: 10 units Labetalol HCl (Normodyne -) 200 mg PO TID [facility] Last Admin: 08/25/16 13:30 Dose: 200 mg Losartan Potassium (Cozaar -) 25 mg PO DAILY [facility] Last Admin: 08/25/16 09:18 Dose: 25 mg Nifedipine (Procardia Xl -) 30 mg PO BID [facility] Last Admin: 08/25/16 09:18 Dose: 30 mg Oxycodone HCl (Roxicodone -) 10 mg PO Q6H PRN PRN Reason: PAIN LEVEL 6-10 Last Admin: 08/25/16 13:31 Dose: 10 mg Pantoprazole Sodium (Protonix -) 40 mg PO DAILY [facility] Last Admin: 08/25/16 09:18 Dose: 40 mg Senna (Senna -) 1 tab PO DAILY [facility] Last Admin: 08/25/16 09:19 Dose: Not Given Sevelamer Carbonate (Renvela -) 1,600 mg PO TIDCM [facility] Last Admin: 08/25/16 11:50 Dose: 1,600 mg A/P 25 year old woman well known to our service with PMhx of ESRD on HD, IDDM, PVD Osteomylitis, 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 #ESRD on HD (MWF) no acute indication for dialysis today next treatment planned for tomorrow #DKA now resolved continue sc insulin #Thigh pain and Myositis CT done last week showed edema by the muscles, no collections or abcess for LN biopsy and fluid aspiration from thigh tomorrow by Sx Rheum Eval #Anemia of CKD good response to 2 units prbc continue high dose epogen with HD #Hypertension continue Nifedpine, Losartan, Clonidine, Labetalol Titrate as needed Thank you Nathan Vo DO
[2016-08-26] MEDS: HYDROmorphone HCL CARPU-JECT 1 MG/1 ML DISP.SYRIN IM PRN ×3 (00:53→21:10)
[2016-08-26] MEDS ORDERED: EPOETIN ALFA 2,000 UNITS/1 ML VIAL SQ ONE ×2 (06:00→15:15)
[2016-08-26] MEDS: hydrALAZINE HCL 25 MG TABLET (FP) PO SCH ×2 (06:12→21:06)
[2016-08-26] MEDS: LABETALOL HCL 200 MG TABLET (FP) PO SCH ×2 (06:12→21:05)
[2016-08-26] MEDS: cloNIDine HCL 0.1 MG TABLET PO SCH ×2 (06:12→21:10)
[2016-08-26] MEDS: GABAPENTIN 100 MG CAPSULE (FP) PO SCH ×2 (06:12→21:05)
[2016-08-26] MEDS ORDERED: INSULIN (NOVOLOG) ASPART 100 UNITS/ML 10ML VIAL ONE ×3 (07:00→21:04)
[2016-08-26] MEDS: INSULIN DETEMIR 100 UNITS/ML MDV SQ SCH ×2 (07:02→21:07)
[2016-08-26] MEDS: INSULIN SLIDING SCALE (NOVOLOG) 1 VIAL SQ SCH ×4 (07:05→21:07)
[2016-08-26] MEDS: SEVELAMER CARBONATE 800 MG TAB (FP) PO SCH ×3 (08:11→18:06)
[2016-08-26] MEDS: NIFEdipine E.R. 30 MG TABLET (FP) PO SCH ×2 (09:27→21:06)
[2016-08-26] MEDS: LOSARTAN POTASSIUM 25 MG TABLET PO SCH (09:27)
[2016-08-26] MEDS: PANTOPRAZOLE 40 MG TABLET (FP) PO SCH (09:32)
[2016-08-26] MEDS: HEPARIN NA (PORCINE) 5,000 UNITS/ML 1ML VIAL SQ SCH ×2 (09:32→21:06)
[2016-08-26] MEDS: CINACALCET HCL 30 MG TAB (FP) PO SCH (09:33)
[2016-08-26] MEDS: SENNOSIDES 8.6MG TABLET (FP) PO SCH (09:33)
--- NOTE | 2016-08-26 10:06 | PN ---
Progress Note, Physician Chief Complaint: waiting to go to OR Has pain in right leg no SOB - Current Medication List Current Medications: Active Medications Acetaminophen (Tylenol -) 325 mg PO Q6H PRN PRN Reason: PAIN LEVEL 6-10 Last Admin: 08/25/16 06:35 Dose: 325 mg Cinacalcet (Sensipar -) 60 mg PO DAILY [facility] Last Admin: 08/26/16 09:33 Dose: Not Given Clonidine (Catapres -) 0.3 mg PO TID [facility] Last Admin: 08/26/16 06:12 Dose: 0.3 mg Epoetin Abiel (Epogen -) 4,000 units SQ ONCE ONE Stop: 08/26/16 06:01 Gabapentin (Neurontin -) 100 mg PO TID [facility] Last Admin: 08/26/16 06:12 Dose: 100 mg Heparin Sodium (Porcine) (Heparin -) 5,000 unit SQ BID [facility] Last Admin: 08/26/16 09:32 Dose: Not Given Hydralazine HCl (Apresoline -) 25 mg PO TID [facility] Last Admin: 08/26/16 06:12 Dose: 25 mg Hydromorphone HCl (Dilaudid Injection -) 1 mg IM Q4H PRN PRN Reason: PAIN Last Admin: 08/26/16 06:46 Dose: 1 mg Ibuprofen (Motrin -) 600 mg PO Q6H PRN PRN Reason: FEVER Insulin Aspart (Novolog Vial Sliding Scale -) 1 vial SQ ACHS [facility] PRN Reason: Protocol Last Admin: 08/26/16 07:05 Dose: Not Given Insulin Detemir (Levemir Vial) 10 units SQ BID@0700,2200 [facility] Last Admin: 08/26/16 07:02 Dose: Not Given Labetalol HCl (Normodyne -) 200 mg PO TID [facility] Last Admin: 08/26/16 06:12 Dose: 200 mg Losartan Potassium (Cozaar -) 25 mg PO DAILY [facility] Last Admin: 08/26/16 09:27 Dose: 25 mg Nifedipine (Procardia Xl -) 30 mg PO BID [facility] Last Admin: 08/26/16 09:27 Dose: 30 mg Oxycodone HCl (Roxicodone -) 10 mg PO Q6H PRN PRN Reason: PAIN LEVEL 6-10 Last Admin: 08/25/16 13:31 Dose: 10 mg Pantoprazole Sodium (Protonix -) 40 mg PO DAILY [facility] Last Admin: 08/26/16 09:32 Dose: Not Given Senna (Senna -) 1 tab PO DAILY [facility] Last Admin: 08/26/16 09:33 Dose: Not Given Sevelamer Carbonate (Renvela -) 1,600 mg PO TIDCM [facility] Last Admin: 08/26/16 08:11 Dose: Not Given - Objective Vital Signs: Vital Signs Temperature 98.4 F 08/26/16 06:00 Pulse Rate 88 08/26/16 06:00 Respiratory Rate 20 08/26/16 06:00 Blood Pressure 144/86 08/26/16 06:00 O2 Sat by Pulse Oximetry (%) 98 08/25/16 21:00 Constitutional: Yes: No Distress Cardiovascular: Yes: Regular Rate and Rhythm Respiratory: Yes: CTA Bilaterally Gastrointestinal: Yes: Normal Bowel Sounds, Soft. No: Tenderness Edema: Yes Edema: RLE: 1+ Labs: CBC, BMP 08/24/16 09:15 08/24/16 09:15 INR, PTT INR 1.32 (0.82-1.09) H 08/19/16 17:15 Problem List - Problems (1) DKA (diabetic ketoacidosis) Code(s): E13.10 - OTH DIABETES MELLITUS WITH KETOACIDOSIS WITHOUT COMA Qualifiers: Diabetes mellitus type: type 1 (2) Leg pain, right Code(s): M79.604 - PAIN IN RIGHT LEG (3) Diabetes mellitus, insulin dependent (IDDM), uncontrolled Code(s): E10.65 - TYPE 1 DIABETES MELLITUS WITH HYPERGLYCEMIA Qualifiers: Diabetes mellitus complication status: with unspecified complications Qualified Code(s): E10.8 - Type 1 diabetes mellitus with unspecified complications; E10.65 - Type 1 diabetes mellitus with hyperglycemia (4) ESRD (end stage renal disease) on dialysis Code(s): N18.6 - END STAGE RENAL DISEASE Z99.2 - DEPENDENCE ON RENAL DIALYSIS (5) Myositis Code(s): M60.9 - MYOSITIS, UNSPECIFIED Qualifiers: Myositis location: thigh Laterality: right Assessment/Plan PLAN HD as scheduled for today after she comes back from the OR Continue with glucose control For OR today for LN biopsy , fluid aspiration right leg. muscle biopsy continue with pain control physical therapy
[2016-08-26] MEDS ORDERED: MIDAZOLAM HCL 2 MG/2 ML SINGLE DOSE VIAL ONE ×3 (10:55→11:10)
[2016-08-26] MEDS ORDERED: LIDOCAINE HCL 1%, 10 MG/ML (20ML VIAL) IJ ONE (11:01)
[2016-08-26] MEDS ORDERED: LIDOCAINE HCL 1%, 10 MG/ML (20ML VIAL) ONE (11:11)
[2016-08-26] MEDS ORDERED: LABETALOL HCL 5 MG/1 ML (100MG/20 ML VIAL) IVPUSH ONE ×5 (11:50→12:25)
--- NOTE | 2016-08-26 11:51 | OP ---
Operative Note - Note: Operative Date: 08/26/16 Pre-Operative Diagnosis: Myositis, lymphadenopathy right groin Operation: Biopsy muscle and inguinal lymph node right leg Post-Operative Diagnosis: Same as Pre-op Surgeon: Jose Ng Anesthesiologist/CHEMICAL ENGINEERING TEACHER: Mike Wyatt Anesthesia: Fractional Specimens Removed: Biopsy of vastus lateralis muscle. Right inguinal lymph node Estimated Blood Loss (mls): 20 Operative Report Dictated: Yes
[2016-08-26] MEDS ORDERED: PROMETHAZINE HCL 25 MG/1 ML VIAL IVPUSH PRN (11:52)
[2016-08-26] MEDS ORDERED: ONDANSETRON 4 MG/2 ML VIAL IVPUSH PRN (11:52)
[2016-08-26] MEDS ORDERED: ACETAMINOPHEN 325 MG TABLET (FP) PO PRN (12:08)
[2016-08-26] MEDS ORDERED: IBUPROFEN 600 MG TABLET (FP) PO PRN (12:08)
[2016-08-26] MEDS ORDERED: oxyCODONE HCL 5 MG TABLET PO PRN (12:08)
[2016-08-26 16:20] LABS: MCHC 30.9 g/dl (32.0-36.0); MEAN CELL VOLUME 80.9 fl (80-96); MEAN PLT VOLUME 8.5 fl (7.5-11.1); PLATELET COUNT 484 K/MM3 (134-434); RDW 17.5 % (11.6-15.6); WHITE BLOOD COUNT 9.7 K/mm3 (4.0-10.0)
[2016-08-26 16:47] LABS: CALCIUM 8.3 mg/dL (8.5-10.1); COCKROFT - GAULT 25.7125; CREATININE 3.3 mg/dL (0.55-1.02); PHOSPHOROUS 2.1 mg/dL (2.5-4.9)
[2016-08-26] MEDS: oxyCODONE HCL 5 MG TABLET PO PRN (18:10)
--- NOTE | 2016-08-26 18:51 | PN ---
Progress Note (short form) - Note Progress Note: Renal Follow up for ESRD on HD Pt seen and examined during dialysis BP stable, goal UF is 3.5L s/p muscle biopsy no acute complaints Vital Signs Temperature 97.8 F 08/26/16 13:15 Pulse Rate 93 H 08/26/16 17:30 Respiratory Rate 18 08/26/16 17:30 Blood Pressure 149/92 08/26/16 17:30 O2 Sat by Pulse Oximetry (%) 98 08/26/16 12:45 Gen: NAD CVS: RRR, No M/R Lungs: CTA, no rales or wheeze Abd: soft, NT/ND Ext: Trace edema in b/l LE, + tenderness Right Thigh and calf CBC, BMP 08/26/16 15:30 08/26/16 15:30 Current Medications Acetaminophen (Tylenol -) 325 mg PO Q6H PRN PRN Reason: PAIN LEVEL 6-10 Cinacalcet (Sensipar -) 60 mg PO DAILY [facility] Clonidine (Catapres -) 0.3 mg PO TID [facility] Fentanyl (Sublimaze Injection -) 25 mcg IVPUSH [id number] PRN PRN Reason: PAIN Stop: 08/29/16 11:53 Gabapentin (Neurontin -) 100 mg PO TID [facility] Heparin Sodium (Porcine) (Heparin -) 5,000 unit SQ BID [facility] Hydralazine HCl (Apresoline -) 25 mg PO TID [facility] Hydromorphone HCl (Dilaudid Injection -) 1 mg IM Q4H PRN PRN Reason: PAIN Ibuprofen (Motrin -) 600 mg PO Q6H PRN PRN Reason: FEVER Insulin Aspart (Novolog Vial Sliding Scale -) 1 vial SQ ACHS [facility] PRN Reason: Protocol Last Admin: 08/26/16 18:06 Dose: 10 units Insulin Detemir (Levemir Vial) 10 units SQ BID@0700,2200 [facility] Labetalol HCl (Normodyne -) 200 mg PO TID [facility] Losartan Potassium (Cozaar -) 25 mg PO DAILY [facility] Nifedipine (Procardia Xl -) 30 mg PO BID [facility] Oxycodone HCl (Roxicodone -) 10 mg PO Q4H PRN PRN Reason: SEVERE PAIN Stop: 08/27/16 11:51 Last Admin: 08/26/16 18:10 Dose: 10 mg Oxycodone HCl (Roxicodone -) 10 mg PO Q6H PRN PRN Reason: PAIN LEVEL 6-10 Pantoprazole Sodium (Protonix -) 40 mg PO DAILY [facility] Senna (Senna -) 1 tab PO DAILY [facility] Sevelamer Carbonate (Renvela -) 1,600 mg PO TIDCM [facility] Last Admin: 08/26/16 18:06 Dose: 1,600 mg A/P 25 year old woman well known to our service with PMhx of ESRD on HD, IDDM, PVD Osteomylitis, 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 #ESRD on HD (MWF) tolerating dialysis well goal UF is 3.5L #DKA now resolved continue sc insulin #Thigh pain and Myositis s/p Muscle and LN biopsy Rheum follow up #Anemia of CKD continue high dose epogen with HD #Hypertension continue Nifedpine, Losartan, Clonidine, Labetalol Titrate as needed Thank you Nathan Vo DO
--- NOTE | 2016-08-26 19:44 | OP ---
DATE OF OPERATION: 08/26/2016 SURGEON: Jose Mckeon M.D. PROCEDURE: Biopsy of muscle, right lateral thigh and biopsy right inguinal lymph node. PREOPERATIVE DIAGNOSIS: Chronic myositis and inguinal adenopathy. POSTOPERATIVE DIAGNOSIS: Chronic myositis and inguinal adenopathy. ANESTHESIA: Fractional. ANESTHESIOLOGIST: Mike Wyatt M.D. OPERATIVE FINDINGS: There was no free fluid within the muscle compartment on the right lateral thigh. The node in the right groin was enlarged and somewhat dark in color. OPERATIVE PROCEDURE: Following routine patient identified, side and site verification, intravenous sedation was established. The right leg and groin were prepped with Chloraprep. Timeout was performed. A 1% Xylocaine was infiltrated in the lateral aspect of the right upper thigh and a transverse skin incision was made. This was carried down to the subcutaneous tissues using cautery for hemostasis. The muscle fascia was then incised, and the underlying muscle bluntly dissected. A tuft of muscle measuring approximately 2 cm in length was isolated and excised. It was tied to a cotton application and sent fresh to pathology. The wound was irrigated and closed with interrupted suture of 3-0 Vicryl and subcutaneous tissues and running subcuticular suture of 4-0 Biosyn on the skin. Attention was turned to the right groin. 1% Xylocaine was infiltrated over the palpable nodes in the lateral aspect of the inguinal crease. Skin incision was made and subcutaneous tissue divided sharply. An enlarged lymph node was identified and was mobilized from the surrounding tissues and freed with cautery. It was sent to pathology and a small piece also sent to microbiology for culture. The wound was closed with Vicryl and Biosyn, sterile dressing was applied, and the patient was taken to the recovery room in stable condition. JOSE MCKEON M.D. [id number]
[2016-08-27] MEDS: oxyCODONE HCL 5 MG TABLET PO PRN ×2 (01:05→08:00)
[2016-08-27] MEDS: HYDROmorphone HCL CARPU-JECT 1 MG/1 ML DISP.SYRIN IM PRN (04:28)
[2016-08-27] MEDS ORDERED: INSULIN (NOVOLOG) ASPART 100 UNITS/ML 10ML VIAL ONE (06:26)
[2016-08-27] MEDS: cloNIDine HCL 0.1 MG TABLET PO SCH ×2 (06:27→14:29)
[2016-08-27] MEDS: GABAPENTIN 100 MG CAPSULE (FP) PO SCH ×2 (06:28→14:30)
[2016-08-27] MEDS: LABETALOL HCL 200 MG TABLET (FP) PO SCH ×2 (06:28→14:30)
[2016-08-27] MEDS: hydrALAZINE HCL 25 MG TABLET (FP) PO SCH ×2 (06:28→14:29)
[2016-08-27] MEDS: INSULIN SLIDING SCALE (NOVOLOG) 1 VIAL SQ SCH ×2 (06:28→11:41)
[2016-08-27] MEDS: INSULIN DETEMIR 100 UNITS/ML MDV SQ SCH (06:28)
[2016-08-27] MEDS: SEVELAMER CARBONATE 800 MG TAB (FP) PO SCH (07:55)
--- NOTE | 2016-08-27 08:01 | PN ---
Progress Note (short form) - Note Progress Note: Anesthesia POD#1 S/P muscle biopsy under anesthesia AAO,VSS,no N/V or pain complaints. No complications to anesthesia seen. Asha Cortes MD.
[2016-08-27] MEDS ORDERED: PT OWN MED DRAWER 7, Y5N ONE ×2 (09:51→14:22)
[2016-08-27] MEDS: HEPARIN NA (PORCINE) 5,000 UNITS/ML 1ML VIAL SQ SCH ×2 (09:57→10:04)
[2016-08-27] MEDS: SENNOSIDES 8.6MG TABLET (FP) PO SCH ×2 (09:58→10:05)
[2016-08-27] MEDS: NIFEdipine E.R. 30 MG TABLET (FP) PO SCH (09:58)
[2016-08-27] MEDS ORDERED: CINACALCET HCL 30 MG TAB (FP) PO SCH (10:00)
[2016-08-27] MEDS ORDERED: LOSARTAN POTASSIUM 25 MG TABLET PO SCH (10:00)
[2016-08-27] MEDS ORDERED: PANTOPRAZOLE 40 MG TABLET (FP) PO SCH (10:00)
--- NOTE | 2016-08-27 11:09 | DS ---
Physical Examination Vital Signs: Vital Signs Temperature 97.6 F 08/27/16 10:00 Pulse Rate 87 08/27/16 10:00 Respiratory Rate 20 08/27/16 10:00 Blood Pressure 122/92 08/27/16 10:00 O2 Sat by Pulse Oximetry (%) 96 08/26/16 21:00 Constitutional: Yes: No Distress, Calm Cardiovascular: Yes: Regular Rate and Rhythm Respiratory: Yes: Diminished Gastrointestinal: Yes: Normal Bowel Sounds, Soft. No: Distention, Tenderness Extremities: Yes: Other (Rt thigh and rt groin-- surgical wound - dressing in place) Edema: Yes Edema: RLE: 1+ Neurological: Yes: Alert, Oriented Labs: CBC, BMP 08/26/16 15:30 08/26/16 15:30 Discharge Summary Reason For Visit: ESRD/HYPERKALEMIA/DIABETIC KETOAIDOSIS Current Active Problems Anemia (Acute) DKA (diabetic ketoacidosis) (Acute) Leg pain, right (Acute) Leukocytosis (Acute) Myositis (Acute) Hyperkalemia (Chronic) Hospital Course: Admitted for DKA, abdominal pain . She was not taking her insulin and non compliant with diet Has chronic rt leg pain Initially admnitted in ICU on Insuline drip-- anion gap closed and pt transferred ot regular floor Seen by Vscular surgeon, Renal and Endocrinology Meds adjusted Compliance stressed HD as as scheduled Pt is not volume overloaded, sugars are better controlled She had biopsy of rt inguinal LNE and muscle biopsy done yesterday Advised her to follow up with me in 1 week for results, will refer her to Rheumatology at that time if needed. continue with pain control PT eval done-- steady gait-- slow-- uses a cane stable for dc home , with VNS Condition: Improved - Instructions Diet, Activity, Other Instructions: VNS referral Referrals: Edna Calero MD [Primary Care Provider] - Disposition: HOME - Home Medications Comprehensive Discharge Medication List: Ambulatory Orders Gabapentin 100 mg PO TID 03/11/16 Mupirocin Cream [Bactroban 2% Cream -] 1 applic TP BID #1 tube 05/07/16 Clonidine HCl [Catapres -] 0.3 mg PO TID #90 tablet 07/14/16 Hydralazine HCl [Apresoline -] 25 mg PO TID #60 tablet 07/14/16 Labetalol HCl [Normodyne -] 200 mg PO TID #90 tablet 07/14/16 Losartan Potassium [Cozaar -] 25 mg PO DAILY #30 tablet 07/14/16 Sevelamer Carbonate [Renvela -] 1,600 mg PO TIDCM #60 tab 07/14/16 Cinacalcet HCl [Sensipar] 60 mg PO DAILY 08/05/16 Diphenhydramine [Benadryl Capsule -] 50 mg PO HS 08/05/16 Nifedipine [Procardia Xl] 30 mg PO TID 08/05/16 Sennosides [Senna] 8.6 mg PO DAILY 08/05/16 Insulin (Levemir) [Levemir Flexpen -] 10 units SQ BID #5 pen 08/11/16 Insulin Lispro [Humalog Kwikpen U-100] 1 unit SQ TID #2 units 08/11/16 Oxycodone HCl/Acetaminophen [Percocet 5-325 mg Tablet] 1 tab PO Q6H PRN #60 tablet MDD 4 08/11/16 Tramadol HCl 50 mg PO PRN PRN 08/17/16
--- NOTE | 2016-08-27 13:00 | PN ---
Progress Note (short form) - Note Progress Note: Renal Follow up for ESRD on HD Pt seen and examined at the bedside feels fatigued no sob, chest pain s/p dialysis yesterday s/p muscle biopsy Vital Signs Temperature 97.6 F 08/27/16 10:00 Pulse Rate 87 08/27/16 10:00 Respiratory Rate 20 08/27/16 10:00 Blood Pressure 122/92 08/27/16 10:00 O2 Sat by Pulse Oximetry (%) 96 08/26/16 21:00 Intake & Output 08/24/16 08/25/16 08/26/16 08/27/16 23:59 23:59 23:59 23:59 Intake Total 500 850 325 400 Output Total 20 Balance 500 850 305 400 Weight 150 lb 139 lb 135 lb 2 oz Gen: NAD CVS: RRR, No M/R Lungs: CTA, no rales or wheeze Abd: soft, NT/ND CBC, BMP 08/26/16 15:30 08/26/16 15:30 Current Medications Acetaminophen (Tylenol -) 325 mg PO Q6H PRN PRN Reason: PAIN LEVEL 6-10 Cinacalcet (Sensipar -) 60 mg PO DAILY [facility] Last Admin: 08/27/16 09:59 Dose: 60 mg Clonidine (Catapres -) 0.3 mg PO TID [facility] Last Admin: 08/27/16 06:27 Dose: 0.3 mg Fentanyl (Sublimaze Injection -) 25 mcg IVPUSH [id number] PRN PRN Reason: PAIN Stop: 08/29/16 11:53 Gabapentin (Neurontin -) 100 mg PO TID [facility] Last Admin: 08/27/16 06:28 Dose: 100 mg Heparin Sodium (Porcine) (Heparin -) 5,000 unit SQ BID [facility] Last Admin: 08/27/16 10:04 Dose: Not Given Hydralazine HCl (Apresoline -) 25 mg PO TID [facility] Last Admin: 08/27/16 06:28 Dose: 25 mg Hydromorphone HCl (Dilaudid Injection -) 1 mg IM Q4H PRN PRN Reason: PAIN Last Admin: 08/27/16 04:28 Dose: 1 mg Ibuprofen (Motrin -) 600 mg PO Q6H PRN PRN Reason: FEVER Insulin Aspart (Novolog Vial Sliding Scale -) 1 vial SQ ACHS [facility] PRN Reason: Protocol Last Admin: 08/27/16 11:41 Dose: Not Given Insulin Detemir (Levemir Vial) 10 units SQ BID@0700,2200 [facility] Last Admin: 08/27/16 06:28 Dose: 10 units Labetalol HCl (Normodyne -) 200 mg PO TID [facility] Last Admin: 08/27/16 06:28 Dose: 200 mg Losartan Potassium (Cozaar -) 25 mg PO DAILY [facility] Last Admin: 08/27/16 09:57 Dose: 25 mg Nifedipine (Procardia Xl -) 30 mg PO BID [facility] Last Admin: 08/27/16 09:58 Dose: 30 mg Oxycodone HCl (Roxicodone -) 10 mg PO Q6H PRN PRN Reason: PAIN LEVEL 6-10 Pantoprazole Sodium (Protonix -) 40 mg PO DAILY [facility] Last Admin: 08/27/16 09:58 Dose: 40 mg Senna (Senna -) 1 tab PO DAILY [facility] Last Admin: 08/27/16 10:05 Dose: Not Given A/P 25 year old woman well known to our service with PMhx of ESRD on HD, IDDM, PVD Osteomylitis, 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 #ESRD on HD (MWF) no indication for dialysis today to resume dialysis as an outpatient tomorrow #Thigh pain and Myositis s/p Muscle and LN biopsy Rheum follow up as outpatient #Anemia of CKD continue high dose epogen with HD #Hypertension continue Nifedpine, Losartan, Clonidine, Labetalol Titrate as needed Thank you Nathan Vo DO
[2016-08-27 14:28] VITALS: BP 148/84; PULSE 89; TEMP 98.5
--- NOTE | 2016-08-27 15:59 | HOSP ---
Subjective - Review of Symptoms Events since last encounter: Called to bedside s/p unwitnessed fall onto knees. Subjective: The patient states when she attempted to ambulate, she leaned on the bedside table which rolled away and caused her to fall onto her right knee. Preently she denies all c/o at present regarding fall. Musculoskeletal: Yes: No Symptoms Physical Examination Vital Signs: Vital Signs Temperature 98.5 F 08/27/16 14:26 Pulse Rate 89 08/27/16 14:26 Respiratory Rate 20 08/27/16 10:00 Blood Pressure 148/84 08/27/16 14:26 O2 Sat by Pulse Oximetry (%) 98 08/27/16 09:00 HENT: Yes: WNL, Normocephalic Neck: Yes: WNL, Supple, Trachea Midline (full ROM) Musculoskeletal: Yes: WNL, Other (no swelling, deformity or crepitus to right knee. negative Oriana's sign. Full ROM against resistance. No tenderness to hip, thigh, knee, calf or ankle on RLE.) Extremities: Yes: WNL Neurological: Yes: Alert, Oriented, Cran Nerves II-XII Intact. No: Aphasia, Ataxia, Confusion, Dysarthria, Facial Droop, Loss of Sensation, Numbness, Paresthesia, Seizure, Unsteady Gait, Weakness Labs: CBC, BMP 08/26/16 15:30 08/26/16 15:30 Hospitalist Encounter Assessment: This is a 25 yo woman that experienced a fall onto her right knee when the bedside table she was holding moved. Outcome: No clinical evidence of head trauma or musculoskeletal injury. No need for imaging at this time. Dr. Calero will f/u on next outpatient visit. Primary Physician Notified: Edna Calero Time PMD Notified: 16:05
--- NOTE | 2016-09-01 14:51 | PATH ---
Surgical Pathology Report Patient Name: THEA SINGH Med. Rec. #: [id number] /Age/Gender: 1990 (Age: 25) / F Account: [id number] Location: [address] [place] [address] Taken: 08/26/2016 Received: 08/26/2016 Reported: 09/01/2016 Physicians: Apryl Agustin M.D. Specimen(s) Received RIGHT INGUINAL LYMPH NODE BIOPSY Clinical History Right inguinal lymphadenopathy Final Diagnosis LYMPH NODE, RIGHT INGUINAL, EXCISIONAL BIOPSY: BENIGN APPEARING REACTIVE LYMPH NODE (SEE COMMENT). Comment: Immunohistochemical stains performed at the [facility], [place], [place] ([id number]) and interpreted at [facility] show the following: CD20 and PAX5 immunostains highlight the lymphocytes, CD3 and CD5 highlight T lymphocytes, CD10 and BCL6 highlight germinal center cells, which are negative for BCL2. These results are supportive of the interpretation above. Flow cytometry performed and interpreted at the [facility], [place], [place] ([id number]) showed no clonal B-cells or atypical T-cells. The sample was composed mostly of small and medium-sized lymphocytes including a mixture of polyclonal B-cells and immunophenotypically normal CD4+ and CD8+ T-cells. Electronically Signed Abdi Diane M.D. Gross Description Received fresh labeled "lymph node biopsy" is a 1.0 x 0.8 x 0.6 cm colin, irregular lymph node. A regional sales representative portion is placed in RPMI solution and sent for flow cytometry. The remainder of the specimen is entirely submitted in one cassette. 08/26/201608/26/2016
--- NOTE | 2016-09-10 12:50 | PATH ---
Surgical Pathology Report Patient Name: THEA SINGH [facility]. Rec. #: [id number] /Age/Gender: 1990 (Age: 25) / F Account: [id number] Location: [address] [place] [address]/[facility] Taken: 08/26/2016 Received: 08/26/2016 Reported: 09/10/2016 Physicians: Apryl Agustin M.D. Specimen(s) Received RIGHT LEG MUSCLE BIOPSY Clinical History The patient is a 25 yo woman with Type I diabetes (diagnosed at age 10), end-stage renal disease, hyperkalemia, and diabetic ketoacidosis. Final Diagnosis MUSCLE, RIGHT LEG, BIOPSY ([facility], [id number], Dr. Jelena Chandra MD, PhD): CHRONIC AND ACTIVE NECROTIZING MYOPATHY, SEVERE. (SEE COMMENT) Comment: The biopsy reveals features of a severe chronic and active necrotizing myopathy. There are many necrotic and regenerating fibers in the background of marked interstitial fibrosis. Inflammatory infiltrates present are interpreted as secondary to active myonecrosis and there is no upregulation of Class I antigens to support an immune-mediate process. In this patient, the possibility of a necrotizing myopathy as a complication of long standing and poorly controlled diabetes (diabetic myonecrosis) is raised. Further correlation with clinical findings is requested. Electronically Signed Abdi Diane M.D. Microscopic Description Stains: Paraffin sections: Hematoxylin and eosin, Esau trichrome, thioflavin S, immunostains (CD3, CD20, CD68, myosin heavy chain fast and slow epitopes). Cryo-sections: H&E, Gomori trichrome, NADH-TR, SDH, ATPase (pH 9.4), acid phosphatase, immunostains (HLA-A<B<C (MHC Class 1 antigens), dystrophin, a-sarcoglycan, dysferlin, utrophin, caveolin-3). Tissue quality: Fair. Fiber size: Variation of fiber size is increased due to the presence of many atrophic fibers. No group atrophy is evident. Some myofibers have a whorling morphology. Fiber type: Atrophic fibers are either Type 1 or Type 2. There is no overt fiber type grouping. Nuclei: There is an increase in the number of internally nucleated fibers. Highly atrophic fibers appear as nuclear clumps. Fibers: Target/targetoid structures: Not evident in the area of better tissue preservation. Necrotic sarcoplasm: Many present. Regeneration: Many present. Rimmed vacuoles: None. Other: Fibers do not readily reveal abnormal intracytoplasmic structures such as rods and cytoplasmic bodies. Although a few myofibers show irregular interfibrillary networks, no characteristic ragged blue fibers are identifiable by SDH. An acid phosphatase highlights many foci of myonecrosis, reflecting the presence of macrophages. Blood vessels: There are no features indicative of active vasculitis. Cellular response: Foci of necrosis are infiltrated by chronic inflammatory cells including CD68+macrophages, CD3+ T cells and rare CD20+ B cells. Interstitial tissue: Marked endomysial, perimysial and epimysial fibrosis is present. Other: A thioflavin S stain is negative for amyloid. Immunohistochemical staining for HLA-A,B,C (MHC Class I) shows no significant immunoreaction along the surface of myofibers; infiltrating inflammatory cells are labeled. Immunohistochemical staining for dystrophin (mid-sergio domain), a sarcoglycan, dysferlin and caveolin-3 reveal no specific protein deficiency in the better preserved fibers. There is poor staining for dystrophin C-terminus, interpreted as artifact of tissue preservation. An utrophin immunostain reveals faint sarcolemmal immunoreactivity on rare fibers. Gross Description Received fresh labeled "right leg muscle biopsy" is a 1.2 cm in length x 0.9 cm in diameter red-brown, cylindrical portion of muscle. The specimen is divided, placed into 10% buffered formalin, glutaraldehyde and saline moistened gauze. The specimen is sent to [facility] for further studies. 08/26/2016 [facility]08/26/2016
== END 2016-08-27 16:23 | disposition home or self-care (01) | DRG 628 ==
LOC: JER 14:27 → JERBED 18:53 → JICU 22:56 → J6S 08-20 19:47
PROVIDERS: ADMIT Internal Medicine; ATTEND Internal Medicine
PROC: 5A1D60Z (ICD-10-PCS; 2016-08-20)
PROC: 30233N1 Transfusion of Nonautologous Red Blood Cells into Peripheral Vein, Percutaneous Approach (ICD-10-PCS; 2016-08-20)
PROC: 07BH0ZX Excision of Right Inguinal Lymphatic, Open Approach, Diagnostic (ICD-10-PCS; 2016-08-26)
PROC: 0KBR0ZX Excision of Left Upper Leg Muscle, Open Approach, Diagnostic (ICD-10-PCS; principal; 2016-08-26 10:00)
DX: E10.10 Type 1 diabetes mellitus with ketoacidosis without coma (principal); N18.6 End stage renal disease; I13.2 Hypertensive heart and chronic kidney disease with heart failure and with stage 5 chronic kidney disease, or end stage renal disease; J98.11 Atelectasis; Z79.4 Long term (current) use of insulin; E10.22 Type 1 diabetes mellitus with diabetic chronic kidney disease; M60.9 Myositis, unspecified; I50.9 Heart failure, unspecified; Z99.2 Dependence on renal dialysis; M79.604 Pain in right leg; Z86.711 Personal history of pulmonary embolism; Z86.718 Personal history of other venous thrombosis and embolism; Z79.01 Long term (current) use of anticoagulants; Z86.14 Personal history of Methicillin resistant Staphylococcus aureus infection; E87.5 Hyperkalemia; D72.829 Elevated white blood cell count, unspecified; Z91.14 Patient's other noncompliance with medication regimen; D63.1 Anemia in chronic kidney disease; R59.0 Localized enlarged lymph nodes
CPT/HCPCS: 36415; 36430; 71010-TC; 76882; 80048; 80053; 80076; 82009; 82550; 82553; 82803; 82947; 82977; 83605; 83690; 83735; 84100; 84484; 84703; 85025; 85027; 85610; 85730; 86850; 86900; 86901; 86922; 87040; 87070; 87075; 87102; 87116; 87205; 87206; 87210; 88300-TC; 88305-TC; 93005; 93010; 94760; 96372; 96374; 96375; 97116-GP; 97162; 99283-25; 99285-25; J0735; J0885; J1644; P9038; P9058

== ENCOUNTER 2016-09-07 19:31 | Emergency (ER) | payer OTHER ==
[2016-09-07 19:35] VITALS: BP 152/72; PULSE 76; TEMP 98.1; BMI 23.1
[2016-09-07] MEDS ORDERED: KETOROLAC TROMETHAMINE 30 MG/1 ML VIAL IM ONE (22:09)
--- NOTE | 2016-09-07 22:16 | PDOC ---
History of Present Illness - General Chief Complaint: Pain, Acute Stated Complaint: FALL/KNEE PAIN Time Seen by Provider: 09/07/16 22:00 - History of Present Illness Initial Comments: 09/07/16 22:11 CHIEF COMPLAINT: knee pain HISTORY OF PRESENT ILLNESS: 26-year-old female with history of myositis presents to ED status post fall with knee pain. Patient reports that she was stepping up a sidewalk when she felt her legs give out "like it does sometimes because I have myositis" and she landed on her right knee. She denies any loss of sensation to her legs, she denies any injury to any other part of her body. Patient reports that she can walk, but when when her knee bends a little bit, it hurts. FAMILY HISTORY: Denies SOCIAL HISTORY: Denies tobacco, alcohol, illicit drug use. SURGICAL HISTORY: Denies ALLERGIES: No known drug allergies REVIEW OF SYSTEMS General/Constitutional: Denies fever or chills. Denies weakness, weight change. HEENT: Denies change in vision. Denies ear pain or discharge. Denies sore throat. Cardiovascular: Denies chest pain or shortness of breath. Respiratory: Denies cough, wheezing, or hemoptysis. Gastrointestinal: Denies nausea, vomiting, diarrhea or constipation. Denies rectal bleeding. Genitourinary: Denies dysuria, frequency, or change in urination. Musculoskeletal: Pain to R knee. Denies joint or muscle swelling or pain. Denies neck or back pain. Skin and breasts: Denies rash or easy bruising. Neurologic: Denies headache, vertigo, loss of consciousness, or loss of sensation. PHYSICAL EXAM General Appearance: Well-appearing, appropriately dressed. No apparent distress , no intoxication. HEENT: EOMI, PERRLA, normal ENT inspection, normal voice, TMs normal, pharynx normal. No conjunctival pallor. No photophobia, scleral icterus. Neck: Supple. Trachea midline. No tenderness, rigidity, carotid bruit, stridor , lymphadenopathy, or thyromegaly. Respiratory/Chest: Lungs CTAB. No shortness of breath, chest tenderness, respiratory distress, accessory muscle use. No crackles, rales, rhonchi, stridor , wheezing, dullness Cardiovascular: RRR. S1, S2. No JVD, murmur, bradycardia, tachycardia. Vascular Pulses: Dorsalis-Pedis (R): 2+, Dorsalis-Pedis (L): 2+ Gastrointestinal/Abdominal: Normal bowel sounds. Abdomen soft, non-distended. No tenderness or rebound tenderness. No organomegaly, pulsatile mass, guarding , hernia, hepatomegaly, splenomegaly. Lymphatic: No adenopathy, tenderness. Musculoskeletal/Extremities: Normal inspection. FROM of all extremities, normal capillary refill. Pelvis Stable. No CVA tenderness. No tenderness to extremities, pedal edema, swelling, erythema or deformity. Integumentary: Appropriate color, dry, warm. No cyanosis, erythema, jaundice or rash Neurologic: plug machine operator II-XII intact. Fully oriented, alert. Appropriate mood/affect. Motor strength 5/5. No appreciable EOM palsy, facial droop or sensory deficit. Past History - Past Medical History Allergies/Adverse Reactions: Allergies Allergy/AdvReac Type Severity Reaction Status Date / Time No Known Drug Allergies Allergy Verified 08/19/16 14:39 Home Medications: Ambulatory Orders Gabapentin 100 mg PO TID 03/11/16 Clonidine HCl [Catapres -] 0.3 mg PO TID #90 tablet 07/14/16 Hydralazine HCl [Apresoline -] 25 mg PO TID #60 tablet 07/14/16 Labetalol HCl [Normodyne -] 200 mg PO TID #90 tablet 07/14/16 Losartan Potassium [Cozaar -] 25 mg PO DAILY #30 tablet 07/14/16 Sevelamer Carbonate [Renvela -] 1,600 mg PO TIDCM #60 tab 07/14/16 Cinacalcet HCl [Sensipar] 60 mg PO DAILY 08/05/16 Sennosides [Senna] 8.6 mg PO DAILY 08/05/16 Insulin (Levemir) [Levemir Flexpen -] 10 units SQ BID #5 pen 08/11/16 Insulin Lispro [Humalog Kwikpen U-100] 1 unit SQ TID #2 units 08/11/16 Oxycodone HCl/Acetaminophen [Percocet 5-325 mg Tablet] 1 tab PO Q6H PRN #60 tablet MDD 4 08/11/16 Tramadol HCl 50 mg PO PRN PRN 08/17/16 Ibuprofen [Motrin -] 600 mg PO Q6H PRN #30 tablet 08/27/16 Nifedipine [Procardia Xl] 30 mg PO BID #0 tab 08/27/16 Anemia: Yes Asthma: No Cancer: No Cardiac Disorders: No CVA: No COPD: No CHF: No Diabetes: Yes (15 yrs Insulin dependent) Dialysis: Yes (M/W/) Disorders: Yes (ESRD for 6 yrs terence vazquez m-w-) HTN: Yes Hypercholesterolemia: No Kidney Stones: (ESRD, Dialysis Mon, W, F, Left arm Fistula) Suicide Attempt (Hx): No Seizures: Yes (Several yrs ago, no medication) Thyroid Disease: No - Surgical History Abdominal Surgery: No Cardiac Surgery: Yes (myxoma removed 2013) Cholecystectomy: Yes Lung Surgery: No Neurologic Surgery: No Orthopedic Surgery: Yes - Immunization History Immunization Up to Date: Yes - Psycho/Social/Smoking Cessation Hx Anxiety: No Suicidal Ideation: No Smoking Status: No Smoking History: Never smoked Have you smoked in the past 12 months: No Number of Cigarettes Smoked Daily: 10 Hx Alcohol Use: No Drug/Substance Use Hx: No Substance Use Type: None Hx Substance Use Treatment: No *Physical Exam - Vital Signs Last Vital Signs Temp Pulse Resp BP Pulse Ox 98.1 F 76 18 152/72 97 09/07/16 19:34 09/07/16 19:34 09/07/16 19:34 09/07/16 19:34 09/07/16 19:34 Medical Decision Making - Medical Decision Making 09/07/16 22:12 X-ray negative for fracture. 30 mg Toradol IM Knee immobilizer. Rajiv wrap Patient reports that she does not need crutches as she can walk as long she doesn't bend her knee. -Naproxen 500 mg bid Advised patient to follow up with orthopedics if symptoms persist. Patient verbalized understanding and agrees to plan. *DC/Admit/Observation/Transfer Diagnosis at time of Disposition: Right knee pain, Myositis - Discharge Dispostion Disposition: HOME Condition at time of disposition: Stable - Referrals Referrals: Edna Calero MD [Primary Care Provider] - - Patient Instructions Printed Discharge Instructions: DI for Knee Pain Additional Instructions: Please follow up with orthopedics as discussed. If you experience any pain in your R calf, any shortness of breath, palpitations, difficulty breathing, or any new or worsening symptoms, please return to the ER.
[2016-09-07] MEDS ORDERED: ACETAMINOPHEN 500 MG TABLET (FP) PO ONE (22:18)
[2016-09-07] MEDS ORDERED: ACETAMINOPHEN 500 MG TABLET (FP) ONE (22:22)
== END 2016-09-07 22:31 | disposition home or self-care (01) ==
LOC: JERFT 19:31
DX: M25.561 Pain in right knee (principal); M60.88 Other myositis, other site; W10.1XXA Fall (on)(from) sidewalk curb, initial encounter; Y93.01 Activity, walking, marching and hiking; Y92.480 Sidewalk as the place of occurrence of the external cause; Y99.8 Other external cause status; I12.0 Hypertensive chronic kidney disease with stage 5 chronic kidney disease or end stage renal disease; E09.22 Drug or chemical induced diabetes mellitus with diabetic chronic kidney disease; N18.6 End stage renal disease; N17.8 Other acute kidney failure; Z99.2 Dependence on renal dialysis; Z79.4 Long term (current) use of insulin
CPT/HCPCS: 73562-TC-RT; 99281-25

== ENCOUNTER 2016-10-12 15:25 | Inpatient (IN) | payer OTHER ==
--- NOTE | 2016-10-12 16:00 | PDOC ---
History of Present Illness - General Chief Complaint: Blood Transfusion Stated Complaint: Blood Transfusion Time Seen by Provider: 10/12/16 15:43 History Source: Patient Exam Limitations: No Limitations - History of Present Illness Initial Comments: 10/12/16 17:02 25F with pmh of anemia, IDDM, ESRD (hemodialysis MWF), HTN, DVT, and PE (on coumadin), myosistis, osteomyelitis (right 5th digit surgery),sent by dialysis this morning after they found a hemoglobin of 6.3, Na 125, K 5.5, alb 3.2 and Phos 5.9.. Last dialysis was on Wednesday and didn't end up getting it today. Patient was weak and tired but no dizziness or stomach pain. 10/12/16 18:25 repeaSpoke to outside parts salesman Tavo Evans who accepted the admit and will dialyse the patient today, Ordered 2 units of packed RBC's Associated Symptoms: denies: nausea/vomiting, shortness of breath Past History - Past Medical History Allergies/Adverse Reactions: Allergies Allergy/AdvReac Type Severity Reaction Status Date / Time No Known Drug Allergies Allergy Verified 08/19/16 14:39 Home Medications: Ambulatory Orders Gabapentin 100 mg PO TID 03/11/16 Clonidine HCl [Catapres -] 0.3 mg PO TID #90 tablet 07/14/16 Hydralazine HCl [Apresoline -] 25 mg PO TID #60 tablet 07/14/16 Labetalol HCl [Normodyne -] 200 mg PO TID #90 tablet 07/14/16 Losartan Potassium [Cozaar -] 25 mg PO DAILY #30 tablet 07/14/16 Sevelamer Carbonate [Renvela -] 1,600 mg PO TIDCM #60 tab 07/14/16 Cinacalcet HCl [Sensipar] 60 mg PO DAILY 08/05/16 Sennosides [Senna] 8.6 mg PO DAILY 08/05/16 Insulin (Levemir) [Levemir Flexpen -] 10 units SQ BID #5 pen 08/11/16 Insulin Lispro [Humalog Kwikpen U-100] 1 unit SQ TID #2 units 08/11/16 Oxycodone HCl/Acetaminophen [Percocet 5-325 mg Tablet] 1 tab PO Q6H PRN #60 tablet MDD 4 08/11/16 Tramadol HCl 50 mg PO PRN PRN 08/17/16 Ibuprofen [Motrin -] 600 mg PO Q6H PRN #30 tablet 08/27/16 Nifedipine [Procardia Xl] 30 mg PO BID #0 tab 08/27/16 Anemia: Yes Asthma: No Cancer: No Cardiac Disorders: No CVA: No COPD: No CHF: No Diabetes: Yes (15 yrs Insulin dependent) Dialysis: Yes (M/W/F) [facility]: Yes [facility] HTN: Yes Hypercholesterolemia: No Kidney Stones: (ESRD, Dialysis Mon, W, F, Left arm Fistula) Suicide Attempt (Hx): No Seizures: Yes (Several yrs ago, no medication) Thyroid Disease: No - Surgical History Abdominal Surgery: No Cardiac Surgery: Yes (myxoma removed 2013) Cholecystectomy: Yes Lung Surgery: No Neurologic Surgery: No Orthopedic Surgery: Yes - Immunization History Immunization Up to Date: Yes - Psycho/Social/Smoking Cessation Hx Anxiety: No Suicidal Ideation: No Smoking Status: No Smoking History: Former smoker Have you smoked in the past 12 months: No Number of Cigarettes Smoked Daily: 10 Information on smoking cessation initiated: No Hx Alcohol Use: No Drug/Substance Use Hx: No Substance Use Type: None Hx Substance Use Treatment: No Review of Systems - Review of Systems Constitutional: Yes: See HPI. No: Symptoms Reported HEENTM: No: Symptoms Reported Respiratory: No: Shortness of Breath, Wheezing, Productive cough Cardiac (ROS): No: Symptoms Reported, Chest Tightness ABD/GI: No: Symptoms Reported : No: Symptoms Reported, See HPI, Burning, Dysuria, Discharge, Frequency, Flank Pain, Hematuria, Incontinence, Pain, Urgency, Testicular Mass, Testicular Swelling, Lesions, Testicular Pain, Other *Physical Exam - Vital Signs Last Vital Signs Temp Pulse Resp BP Pulse Ox 98.6 F 85 16 161/87 96 10/12/16 15:25 10/12/16 15:25 10/12/16 15:25 10/12/16 15:25 10/12/16 15:25 - Physical Exam General Appearance: Yes: Other (Dialysis fistula on upper left extremity. No erythema or sign of infection. Bandages on both feet for poorly healing wounds. pts gets regular shayan checks.) HEENT: positive: EOMI, VI, Normal ENT Inspection Neck: negative: Tender, Lymphadenopathy (R), Lymphadenopathy (L) Respiratory/Chest: positive: Normal Breath Sounds. negative: Chest Tender, Lungs Clear, Respiratory Distress, Rales, Rhonchi, Stridor, Wheezing Gastrointestinal/Abdominal: positive: Distended. negative: Tenderness Extremity: positive: Pedal Edema (B/l chronic pedal pitting edema 3+, ) ED Treatment Course - LABORATORY CBC & Chemistry Diagram: 10/12/16 17:10 10/12/16 17:10 Medical Decision Making - Medical Decision Making 10/12/16 17:17 26F with psh of ESRD on dialysis sent by dialysis for 6.3 hemoglobin. CBC, CMP, Coags, type and cross ordered before considered RBC transfusion. Paged nephro for admit to give patient inpatient dialysis. 10/12/16 18:06 Hemoglobin confirmed at 6.6. ordered 2 units of packed rbc's. Talked to Tavo Sawyer who agreed with plan to admit to inpatient and provide dialysis inpatient. 10/12/16 18:[address] Acuña who agreed with plan to admit. *DC/Admit/Observation/Transfer Diagnosis at time of Disposition: Dialysis patient, Anemia - Discharge Dispostion Admit: Yes - Referrals Referrals: Edna Calero MD [Primary Care Provider] -
--- NOTE | 2016-10-12 16:57 | PDOC ---
Attending Attestation - Medical Decision Making 10/12/16 16:56-- Dr. Vo paged via phone answering service. 10/12/16 17:11-- Dr. Vo paged via phone answering service. 10/12/16 17:38-- Dr. Vo paged via phone answering service. 10/12/16 17:41-- Dr. Vo responded to the page and discussed the patient's case. 10/12/16 18:25-- Dr. Acuña paged via phone answering service 10/12/16 18:27-- Dr. Acuña responded to the page and the patient's case was discussed. Documentation prepared by Nicole Strong, acting as medical lab director for Jose Rhodes MD <Nicole Strong - Last Filed: 10/12/16 18:36> - Resident Resident Name: RoulaKenrick - ED Attending Attestation I have performed the following: I have examined & evaluated the patient, The case was reviewed & discussed with the resident, I agree w/resident's findings & plan, Exceptions are as noted - HPI HPI: 10/12/16 18:21 26 year old female with history of anemia, insulin-dependent diabetes, end- stage renal disease on dialysis Mondays, Wednesdays, Fridays, hypertension, DVT and pulmonary embolism, myositis, osteomyelitis presents from dialysis center for low hemoglobin 6.3 and a sodium 125 potassium 5.5. Patient reports that she' s been feeling generally weak but no other focal symptoms. Denies chest pain or shortness of breath. Patient denies any bleeding. They did not do any dialysis today and sent the patient to ED. - Physicial Exam PE: 10/12/16 18:22 GENERAL: Awake, alert, and fully oriented, in no acute distress. HEAD: No signs of trauma EYES: PERRLA, EOMI, sclera anicteric, conjunctiva clear ENT: Auricles normal inspection, hearing grossly normal, nares patent, oropharynx clear without exudates. NECK: Normal ROM, supple, no lymphadenopathy, JVD, or masses LUNGS: Breath sounds equal, clear to auscultation bilaterally. No wheezes, and no crackles HEART: Regular rate and rhythm, normal S1 and S2, no murmurs, rubs or gallops ABDOMEN: Soft, nontender, normoactive bowel sounds. No guarding, no rebound. No masses EXTREMITIES: Normal range of motion, no edema. 2+ pitting edema bilateral. LUE fistula. NEUROLOGICAL: Cranial nerves II through XII grossly intact. Normal speech, normal gait SKIN: Warm, Dry, normal turgor, no rashes or lesions noted. - Medical Decision Making 10/12/16 18:23 Patient is anemic. We'll perform blood transfusion. However, patient is also likely with some fluid overload secondary to the fact the patient did not receive dialysis. Patient's metal lather Dr. Tavo Evans contacted and he will dialyze the patient today. We'll admit the patient to the hospital for blood transfusion for her anemia. 10/12/16 18:48 Pt blew her nose and a has a mild R sided epistaxis. Will apply some afrin spray and pressure. <Jose Rhodes - Last Filed: 10/12/16 18:48>
[2016-10-12 17:51] LABS: BASOPHIL 0.7 % (0-2.0); EOSINOPHIL 1.2 % (0-4.5); MCH 24.3 pg (25.7-33.7); MCHC 30.4 g/dl (32.0-36.0); NEUTROPHILS 78.3 % (42.8-82.8); PLATELET COUNT 463 K/MM3 (134-434); RDW 18.2 % (11.6-15.6); WHITE BLOOD COUNT 9.5 K/mm3 (4.0-10.0)
[2016-10-12 18:03] LABS: ALBUMIN 2.7 g/dl (3.4-5.0); ANION GAP 13 (8-16); BILIRUBIN,TOTAL 0.4 mg/dL (0.2-1.0); CALCIUM 8.5 mg/dL (8.5-10.1); CO2 20 mmol/L (21-32); CREATININE 6.6 mg/dL (0.55-1.02); GLUCOSE,RANDOM 265 mg/dL (74-106); SGOT/AST 23 U/L (15-37); SGPT/ALT 16 U/L (12-78); TOT PROT 8.1 g/dl (6.4-8.2)
[2016-10-12 18:04] LABS: ALK PHOS 979 U/L (45-117)
[2016-10-12] MEDS ORDERED: IBUPROFEN 800 MG/8 ML IJ IVPB ONE (18:47)
[2016-10-12] MEDS ORDERED: OXYMETAZOLINE 0.05% NASAL SOLUTION 15 ML BOTTLE NS ONE (18:48)
[2016-10-12 18:56] LABS: INR 1.25 (0.82-1.09); PROTHROMBIN TIME (PATIENT) 13.8 SEC (9.98-11.88)
[2016-10-12 18:59] LABS: ACTIVATED PTT 34.5 SECONDS (26.9-34.4)
[2016-10-12] MEDS ORDERED: EPOETIN ALFA 20,000 UNIT/1 ML VIAL IVPUSH ONE (19:00)
[2016-10-12] MEDS ORDERED: cloNIDine HCL 0.1 MG TABLET PO ONE (21:45)
[2016-10-12 23:30] VITALS: BMI 23.6
[2016-10-12] MEDS: INSULIN SLIDING SCALE (NOVOLOG) 1 VIAL SQ SCH (23:45)
[2016-10-13] MEDS ORDERED: cloNIDine HCL 0.1 MG TABLET PO SCH ×2 (00:15→06:00)
[2016-10-13] MEDS: cloNIDine HCL 0.1 MG TABLET PO SCH ×4 (00:30→21:37)
[2016-10-13] MEDS: LABETALOL HCL 200 MG TABLET (FP) PO SCH ×4 (00:48→21:34)
[2016-10-13] MEDS: NIFEdipine E.R. 30 MG TABLET (FP) PO SCH ×4 (00:49→21:34)
[2016-10-13] MEDS: hydrALAZINE HCL 25 MG TABLET (FP) PO SCH ×5 (00:49→21:34)
[2016-10-13] MEDS: GABAPENTIN 100 MG CAPSULE (FP) PO SCH ×4 (00:49→21:34)
[2016-10-13] MEDS: oxyCODONE HCL 5 MG TABLET PO PRN ×4 (00:50→20:50)
[2016-10-13] MEDS: ACETAMINOPHEN 325 MG TABLET (FP) PO PRN ×4 (00:52→20:51)
[2016-10-13] MEDS: INSULIN DETEMIR 100 UNITS/ML MDV SQ SCH ×2 (06:37→16:48)
[2016-10-13] MEDS: INSULIN SLIDING SCALE (NOVOLOG) 1 VIAL SQ SCH ×4 (06:39→21:49)
[2016-10-13] MEDS: SEVELAMER CARBONATE 800 MG TAB (FP) PO SCH ×3 (08:16→16:49)
[2016-10-13] MEDS ORDERED: PT OWN MED DRAWER 7, Y5N ONE ×2 (09:48→22:00)
[2016-10-13] MEDS: CINACALCET HCL 30 MG TAB (FP) PO SCH (09:54)
[2016-10-13] MEDS: LOSARTAN POTASSIUM 25 MG TABLET PO SCH (09:54)
--- NOTE | 2016-10-13 11:14 | HP ---
Admitting History and Physical - Primary Care Physician PCP: Edna Calero - Admission Chief Complaint: anemia History of Present Illness: ER HISTORY - History of Present Illness Initial Comments: 10/12/16 17:02 25F with pmh of anemia, IDDM, ESRD (hemodialysis MWF), HTN, DVT, and PE (on coumadin), myosistis, osteomyelitis (right 5th digit surgery),sent by dialysis this morning after they found a hemoglobin of 6.3, Na 125, K 5.5, alb 3.2 and Phos 5.9.. Last dialysis was on Wednesday and didn't end up getting it today. Patient was weak and tired but no dizziness or stomach pain. Pt examined by me on the floors Noted above ER history-- Pt currently NOT on Coumadin Denies dark stools Pt takes Ibuprofen 600mg every day for leg pain also tells me that she fell and hit her left knee-- wishes to get an xray History Source: Patient Limitations to Obtaining History: No Limitations - Past Medical History Cardiovascular: Yes: CHF, HTN, Other (thrombus in heart per echo 11/2013; ? subclavian vein thromboses s/p dialysis catheters in the past) Pulmonary: Yes: Pulmonary Embolus Renal/: Yes: Renal Failure, Hemodialysis ...LMP: 08/17/14 ...: No Heme/Onc: Yes: Other (atrial myxoma s/p surgical removal. Also has a history of PE ) Infectious Disease: Yes: MRSA (history of bacteremia, recent mrsa foot abscess) Endocrine: Yes: Diabetes Mellitus (type 1 on insulin pump) - Past Surgical History Past Surgical History: Yes: AV Fistula/Graft (Right arm) - Smoking History Smoking history: Former smoker Have you smoked in the past 12 months: No Aproximately how many cigarettes per day: 10 - Alcohol/Substance Use Hx Alcohol Use: No History of Substance Use: reports: None - Social History ADL: Independent Occupation: unemployed History of Recent Travel: No Home Medications - Allergies Allergies/Adverse Reactions: Allergies Allergy/AdvReac Type Severity Reaction Status Date / Time No Known Drug Allergies Allergy Verified 08/19/16 14:39 - Home Medications Home Medications: Ambulatory Orders Gabapentin 100 mg PO TID 03/11/16 Clonidine HCl [Catapres -] 0.3 mg PO TID #90 tablet 04/11/17 Hydralazine HCl [Apresoline -] 25 mg PO TID #60 tablet 07/14/16 Labetalol HCl [Normodyne -] 200 mg PO TID #90 tablet 07/14/16 Losartan Potassium [Cozaar -] 25 mg PO DAILY #30 tablet 07/14/16 Sevelamer Carbonate [Renvela -] 1,600 mg PO TIDCM #60 tab 07/14/16 Cinacalcet HCl [Sensipar] 60 mg PO DAILY 08/05/16 Sennosides [Senna] 8.6 mg PO DAILY 08/05/16 Insulin (Levemir) [Levemir Flexpen -] 10 units SQ BID #5 pen 08/11/16 Insulin Lispro [Humalog Kwikpen U-100] 1 unit SQ TID #2 units 08/11/16 Oxycodone HCl/Acetaminophen [Percocet 5-325 mg Tablet] 1 tab PO Q6H PRN #60 tablet MDD 4 08/11/16 Tramadol HCl 50 mg PO PRN PRN 08/17/16 Ibuprofen [Motrin -] 600 mg PO Q6H PRN #30 tablet 08/27/16 Nifedipine [Procardia Xl] 30 mg PO BID #0 tab 08/27/16 Family Disease History - Family Disease History Family Disease History: Diabetes: Grandparent (HTN), Heart Disease: Grandparent , Other: Father (unknown), Mother (HTN) Review of Systems - Review of Systems Constitutional: reports: Weakness. denies: Chills, Fever Gastrointestinal: denies: Abdominal Pain Physical Examination Vital Signs: Vital Signs Temperature 98.2 F 10/13/16 09:52 Pulse Rate 88 10/13/16 09:52 Respiratory Rate 10/13/16 09:52 Blood Pressure 147/92 10/13/16 09:52 O2 Sat by Pulse Oximetry (%) 98 10/12/16 18:45 Constitutional: Yes: No Distress, Calm Cardiovascular: Yes: Regular Rate and Rhythm Respiratory: Yes: Diminished Gastrointestinal: Yes: Normal Bowel Sounds, Soft. No: Distention, Tenderness Musculoskeletal: Yes: Joint Swelling (rt knee) Edema: Yes Edema: LLE: 2+, RLE: 2+ Psychiatric: Yes: Alert, Oriented Imaging - Results EKG: Image Reviewed (NSR) Problem List - Problems (1) Anemia Code(s): D64.9 - ANEMIA, UNSPECIFIED (2) End stage chronic kidney disease Code(s): N18.6 - END STAGE RENAL DISEASE Z99.2 - DEPENDENCE ON RENAL DIALYSIS (3) Dialysis patient Code(s): Z99.2 - DEPENDENCE ON RENAL DIALYSIS (4) Diabetes mellitus, insulin dependent (IDDM), uncontrolled Code(s): E10.65 - TYPE 1 DIABETES MELLITUS WITH HYPERGLYCEMIA Qualifiers: Diabetes mellitus complication status: with unspecified complications Qualified Code(s): E10.8 - Type 1 diabetes mellitus with unspecified complications; E10.65 - Type 1 diabetes mellitus with hyperglycemia Assessment/Plan PLAN received two units of PRBC yesterday GI eval Protonix IV check stool guaic avoid NSAIDS diabetic control DVT prophylaxis-- SCD HD per renal check xray of knee Time spent 30 min
[2016-10-13] MEDS ORDERED: INSULIN (NOVOLOG) ASPART 100 UNITS/ML 10ML VIAL ONE ×2 (11:35→21:47)
--- NOTE | 2016-10-13 11:37 | CON.NEP ---
Consult Consult Specialty:: Renal ([place]/Tavo) Referred by:: Dr. Edna Calero Reason for Consultation:: ESRD on HD - History of Present Illness Chief Complaint: Sent from HD unit for Hgb of 6.3 on stat labs History of Present Illness: 26 year old woman with PMhx of ESRD on HD (TTS) x 6 years, Hypertension, DM type 1, Myositis, Hx of multiple episodes of DKA who presented when she was sent in from her outpatient HD unit for Hgb of 6.3 as outpatient. Pt denies any bleeding, SOB, chest pain, N/V/D. + Ibuprofen use Daily. Has been getting EPO with HD with all her tx and pt denies missing any Tx. S/p 2 unit prbc transfusion with HD yesterday as inpatient. - History Source History Provided By: Patient Limitations to Obtaining History: No Limitations - Past Medical History Cardio/Vascular: Yes: CHF, HTN, Other (thrombus in heart per echo 11/2013; ? subclavian vein thromboses s/p dialysis catheters in the past) Pulmonary: Yes: Pulmonary Embolus Renal/: Yes: Renal Failure, Hemodialysis ...LMP: 08/17/14 ...: No Infectious Disease: Yes: MRSA (history of bacteremia, recent mrsa foot abscess) Endocrine: Yes: Diabetes Mellitus (type 1 on insulin pump) Additional Medical History: DVT, PE on coumadin - Past Surgical History Past Surgical History: Yes: AV Fistula/Graft (Right arm) - Alcohol/Substance Use Hx Alcohol Use: No History of Substance Use: reports: None - Smoking History Smoking history: Former smoker Have you smoked in the past 12 months: No Aproximately how many cigarettes per day: 10 - Social History Usual Living Arrangement: With Parent ADL: Independent Occupation: unemployed History of Recent Travel: No Home Medications - Allergies Allergies/Adverse Reactions: Allergies Allergy/AdvReac Type Severity Reaction Status Date / Time No Known Drug Allergies Allergy Verified 08/19/16 14:39 - Home Medications Home Medications: Ambulatory Orders Gabapentin 100 mg PO TID 03/11/16 Clonidine HCl [Catapres -] 0.3 mg PO TID #90 tablet 07/14/16 Hydralazine HCl [Apresoline -] 25 mg PO TID #60 tablet 07/14/16 Labetalol HCl [Normodyne -] 200 mg PO TID #90 tablet 07/14/16 Losartan Potassium [Cozaar -] 25 mg PO DAILY #30 tablet 07/14/16 Sevelamer Carbonate [Renvela -] 1,600 mg PO TIDCM #60 tab 07/14/16 Cinacalcet HCl [Sensipar] 60 mg PO DAILY 08/05/16 Sennosides [Senna] 8.6 mg PO DAILY 08/05/16 Insulin (Levemir) [Levemir Flexpen -] 10 units SQ BID #5 pen 08/11/16 Insulin Lispro [Humalog Kwikpen U-100] 1 unit SQ TID #2 units 08/11/16 Oxycodone HCl/Acetaminophen [Percocet 5-325 mg Tablet] 1 tab PO Q6H PRN #60 tablet MDD 4 08/11/16 Tramadol HCl 50 mg PO PRN PRN 08/17/16 Ibuprofen [Motrin -] 600 mg PO Q6H PRN #30 tablet 08/27/16 Nifedipine [Procardia Xl] 30 mg PO BID #0 tab 08/27/16 Family Disease History - Family Disease History Family History: Unremarkable Family Disease History: Diabetes: Grandparent (HTN), Heart Disease: Grandparent , Other: Father (unknown), Mother (HTN) Review of Systems - Review of Systems Constitutional: reports: Weakness. denies: Chills, Fever, Lethargy, Loss of Appetite Eyes: reports: No Symptoms HENT: reports: No Symptoms Neck: reports: No Symptoms Cardiovascular: denies: Chest Pain, Edema, Palpitations, Shortness of Breath Respiratory: denies: Cough, Exercise Intolerance, Hemoptysis, Orthopnea, PND, SOB, SOB on Exertion Gastrointestinal: denies: Abdominal Pain, Bloating, Constipation, Diarrhea, Dysphagia, Indigestion, Melena, Nausea, Rectal Bleeding, Vomiting, Vomiting Blood Genitourinary: reports: Burning, Discharge, Other (Anuric) Musculoskeletal: denies: Back Pain Neurological: reports: No Symptoms Endocrine: reports: No Symptoms Nephrology Consult - Height Height: 5 ft 6 in - Weight Weight: 146 lb 3 oz - BMI Body Mass Index (BMI): 23.6 - Lab Results Anion Gap: Anion Gap Anion Gap 13 (8-16) 10/12/16 17:10 - Imaging Chest X-ray: Report Reviewed - Physical Examination Vital Signs: Vital Signs Temperature 98.2 F 10/13/16 09:52 Pulse Rate 88 10/13/16 09:52 Respiratory Rate 17 10/13/16 09:52 Blood Pressure 147/92 10/13/16 09:52 O2 Sat by Pulse Oximetry (%) 98 10/12/16 18:45 Constitutional: Yes: Well Nourished, No Distress Eyes: Yes: Conjunctiva Clear HENT: Yes: Atraumatic, Normocephalic Neck: Yes: Supple Cardiovascular: Yes: Regular Rate and Rhythm, S1, S2. No: Murmur, Rub Respiratory: Yes: Regular, CTA Bilaterally Gastrointestinal: Yes: Normal Bowel Sounds, Soft. No: Ascites, Distention Renal/: Yes: Anuria Access for Hemodialysis: AV Fistula Edema: Yes Edema: LLE: 2+, RLE: 2+ Neurological: Yes: Alert, Oriented Psychiatric: Yes: Alert, Oriented Problem List - Problems (1) Diabetes mellitus, insulin dependent (IDDM), uncontrolled Code(s): E10.65 - TYPE 1 DIABETES MELLITUS WITH HYPERGLYCEMIA Qualifiers: Diabetes mellitus complication status: with unspecified complications Qualified Code(s): E10.8 - Type 1 diabetes mellitus with unspecified complications; E10.65 - Type 1 diabetes mellitus with hyperglycemia (2) Fluid overload Code(s): E87.70 - FLUID OVERLOAD, UNSPECIFIED Qualifiers: Hypervolemia type: unspecified Qualified Code(s): E87.70 - Fluid overload, unspecified (3) Myositis Code(s): M60.9 - MYOSITIS, UNSPECIFIED (4) Swelling of right lower extremity Code(s): M79.89 - OTHER SPECIFIED SOFT TISSUE DISORDERS (5) HTN (hypertension) Code(s): I10 - ESSENTIAL (PRIMARY) HYPERTENSION Qualifiers: Hypertension type: essential hypertension Qualified Code(s): I10 - Essential (primary) hypertension (6) End stage chronic kidney disease Code(s): N18.6 - END STAGE RENAL DISEASE Z99.2 - DEPENDENCE ON RENAL DIALYSIS Assessment/Plan 26 year old woman with PMhx of ESRD on HD (TTS) x 6 years, Hypertension, DM type 1, Myositis, Hx of multiple episodes of DKA who presented when she was sent in from her outpatient HD unit for Hgb of 6.3 as outpatient. #Acute on Chronic Anemia Hx of NSAID use will need stool occult blood s/p 2 prbc transfusion yesterday will repeat CBC today, transfuse additional units if Hgb less then 8 [facility] eval avoid further NSAIDs Continue MACIE with regular HD #ESRD on HD with volume overload s/p 2.5 hours of HD yesterday will plan additional HD today with UF as tolerated dose all meds for intermittent HD #Myositis Supportive care pt was supposed to follow up with Rhe[facility] as an outpatient #Renal osteodystrphy continue phos binder #DM Type 1 SC insulin Trend FS Thank you Nathan Vo DO
[2016-10-13 12:47] LABS: MAGNESIUM 2.2 mg/dL (1.8-2.4); PHOSPHOROUS 6.5 mg/dL (2.5-4.9)
--- NOTE | 2016-10-13 13:52 | CON.GI ---
Consult Consult Specialty:: gastroenterology Reason for Consultation:: Dr Edna Calero - History of Present Illness History of Present Illness: 25F with pmh of anemia, IDDM, ESRD (hemodialysis MWF), HTN, DVT, and PE (on coumadin), myosistis, osteomyelitis (right 5th digit surgery),sent by dialysis this morning after they found a hemoglobin of 6.3, Na 125, K 5.5, alb 3.2 and Phos 5.9.. Last dialysis was on Wednesday and didn't end up getting it today. Patient was weak and tired but no dizziness or stomach pain. She denies nausea, vomitn,rectal bleeding - Past Medical History Cardio/Vascular: Yes: CHF, HTN, Other (thrombus in heart per echo 11/2013; ? subclavian vein thromboses s/p dialysis catheters in the past) Pulmonary: Yes: Pulmonary Embolus Renal/: Yes: Renal Failure, Hemodialysis ...LMP: 08/17/14 ...: No Infectious Disease: Yes: MRSA (history of bacteremia, recent mrsa foot abscess) Endocrine: Yes: Diabetes Mellitus (type 1 on insulin pump) Additional Medical History: DVT, PE on coumadin - Past Surgical History Past Surgical History: Yes: AV Fistula/Graft (Right arm) - Alcohol/Substance Use Hx Alcohol Use: No History of Substance Use: reports: None - Smoking History Smoking history: Former smoker Have you smoked in the past 12 months: No Aproximately how many cigarettes per day: 10 - Social History Usual Living Arrangement: With Parent ADL: Independent Occupation: unemployed History of Recent Travel: No Home Medications - Allergies Allergies/Adverse Reactions: Allergies Allergy/AdvReac Type Severity Reaction Status Date / Time No Known Drug Allergies Allergy Verified 08/19/16 14:39 - Home Medications Home Medications: Ambulatory Orders Gabapentin 100 mg PO TID 03/11/16 Clonidine HCl [Catapres -] 0.3 mg PO TID #90 tablet 07/14/16 Hydralazine HCl [Apresoline -] 25 mg PO TID #60 tablet 07/14/16 Labetalol HCl [Normodyne -] 200 mg PO TID #90 tablet 07/14/16 Losartan Potassium [Cozaar -] 25 mg PO DAILY #30 tablet 07/14/16 Sevelamer Carbonate [Renvela -] 1,600 mg PO TIDCM #60 tab 04/11/17 Cinacalcet HCl [Sensipar] 60 mg PO DAILY 08/05/16 Sennosides [Senna] 8.6 mg PO DAILY 08/05/16 Insulin (Levemir) [Levemir Flexpen -] 10 units SQ BID #5 pen 08/11/16 Insulin Lispro [Humalog Kwikpen U-100] 1 unit SQ TID #2 units 08/11/16 Oxycodone HCl/Acetaminophen [Percocet 5-325 mg Tablet] 1 tab PO Q6H PRN #60 tablet MDD 4 08/11/16 Tramadol HCl 50 mg PO PRN PRN 08/17/16 Ibuprofen [Motrin -] 600 mg PO Q6H PRN #30 tablet 08/27/16 Nifedipine [Procardia Xl] 30 mg PO BID #0 tab 08/27/16 Family Disease History - Family Disease History Family Disease History: Diabetes: Grandparent (HTN), Heart Disease: Grandparent , Other: Father (unknown), Mother (HTN) Review of Systems - Review of Systems Constitutional: denies: Fever Eyes: denies: Blind Spots HENT: denies: Difficult Swallowing Neck: denies: Decreased ROM Cardiovascular: denies: Chest Pain Respiratory: denies: SOB Gastrointestinal: denies: Abdominal Pain, Bloating, Constipation, Indigestion, Rectal Bleeding Physical Exam-GI Vital Signs: Vital Signs Temperature 98.2 F 10/13/16 09:52 Pulse Rate 88 10/13/16 09:52 Respiratory Rate 17 10/13/16 09:52 Blood Pressure 147/92 10/13/16 09:52 O2 Sat by Pulse Oximetry (%) 98 10/13/16 09:54 Labs: INR, PTT INR 1.25 (0.82-1.09) H 10/12/16 17:10 Problem List - Problems (1) Anemia Assessment/Plan: etiology unclear, history of NSAID and anticoagulant use R> for EGD in AM stool guaiac Code(s): D64.9 - ANEMIA, UNSPECIFIED
[2016-10-13 17:34] LABS: MCH 24.9 pg (25.7-33.7); MEAN CELL VOLUME 80.5 fl (80-96); MEAN PLT VOLUME 8.6 fl (7.5-11.1); PLATELET COUNT 433 K/MM3 (134-434); RDW 18.3 % (11.6-15.6); WHITE BLOOD COUNT 10.6 K/mm3 (4.0-10.0)
[2016-10-13 17:57] LABS: ANION GAP 16 (8-16); CALCIUM 7.5 mg/dL (8.5-10.1); CO2 23 mmol/L (21-32); CREATININE 5.9 mg/dL (0.55-1.02); GLUCOSE,RANDOM 147 mg/dL (74-106)
[2016-10-13] MEDS ORDERED: SIMETHICONE 80 MG TAB.CHEW (FP) PO PRN (22:52)
[2016-10-14] MEDS: oxyCODONE HCL 5 MG TABLET PO PRN ×4 (02:57→22:42)
[2016-10-14] MEDS: ACETAMINOPHEN 325 MG TABLET (FP) PO PRN ×4 (02:58→22:41)
[2016-10-14 06:07] LABS: HEP B SURFACE AB Reactive (.)
[2016-10-14] MEDS: INSULIN DETEMIR 100 UNITS/ML MDV SQ SCH ×2 (06:52→17:19)
[2016-10-14] MEDS: LABETALOL HCL 200 MG TABLET (FP) PO SCH ×3 (06:52→22:42)
[2016-10-14] MEDS: GABAPENTIN 100 MG CAPSULE (FP) PO SCH ×3 (06:52→22:42)
[2016-10-14] MEDS: hydrALAZINE HCL 25 MG TABLET (FP) PO SCH ×3 (06:53→22:42)
[2016-10-14] MEDS: INSULIN SLIDING SCALE (NOVOLOG) 1 VIAL SQ SCH ×4 (06:53→22:52)
[2016-10-14] MEDS: cloNIDine HCL 0.1 MG TABLET PO SCH ×3 (06:53→22:42)
[2016-10-14] MEDS ORDERED: INSULIN (NOVOLOG) ASPART 100 UNITS/ML 10ML VIAL SQ ONE (07:00)
[2016-10-14 07:36] LABS: BASOPHIL 0.7 % (0-2.0); EOSINOPHIL 0.9 % (0-4.5); MCH 25.5 pg (25.7-33.7); MCHC 31.1 g/dl (32.0-36.0); MEAN CELL VOLUME 81.9 fl (80-96); MEAN PLT VOLUME 8.7 fl (7.5-11.1); NEUTROPHILS 74.9 % (42.8-82.8); PLATELET COUNT 417 K/MM3 (134-434); RDW 18.1 % (11.6-15.6); WHITE BLOOD COUNT 8.9 K/mm3 (4.0-10.0)
[2016-10-14 08:48] LABS: ALBUMIN 2.3 g/dl (3.4-5.0); ANION GAP 19 (8-16); CALCIUM 7.8 mg/dL (8.5-10.1); CO2 22 mmol/L (21-32)
[2016-10-14 08:56] LABS: ALK PHOS 873 U/L (45-117); BILIRUBIN,TOTAL 0.6 mg/dL (0.2-1.0); SGOT/AST 21 U/L (15-37); SGPT/ALT 14 U/L (12-78); TOT PROT 7.4 g/dl (6.4-8.2)
[2016-10-14 09:09] LABS: GLUCOSE,RANDOM 520 mg/dL (74-106)
[2016-10-14] MEDS ORDERED: PT OWN MED DRAWER 7, Y5N ONE ×4 (09:18→21:54)
[2016-10-14] MEDS: NIFEdipine E.R. 30 MG TABLET (FP) PO SCH ×2 (09:26→22:42)
[2016-10-14] MEDS: LOSARTAN POTASSIUM 25 MG TABLET PO SCH (09:26)
[2016-10-14] MEDS: CINACALCET HCL 30 MG TAB (FP) PO SCH (09:27)
[2016-10-14] MEDS: SEVELAMER CARBONATE 800 MG TAB (FP) PO SCH ×3 (09:27→17:17)
[2016-10-14] MEDS ORDERED: INSULIN (NOVOLOG) ASPART 100 UNITS/ML 10ML VIAL ONE (10:48)
--- NOTE | 2016-10-14 11:38 | PN ---
Progress Note, Physician Chief Complaint: EGD cancelled as her sugars were high No complaints states that sometimes when she eats , she feels something stuck in her chest - Current Medication List Current Medications: Active Medications Acetaminophen (Tylenol -) 325 mg PO Q6H PRN PRN Reason: PAIN Last Admin: 10/14/16 09:26 Dose: 325 mg Cinacalcet (Sensipar -) 60 mg PO DAILY [facility] Last Admin: 10/14/16 09:27 Dose: 60 mg Clonidine (Catapres -) 0.3 mg PO TID [facility] Last Admin: 10/14/16 06:53 Dose: 0.3 mg Gabapentin (Neurontin -) 100 mg PO TID [facility] Last Admin: 10/14/16 06:52 Dose: 100 mg Hydralazine HCl (Apresoline -) 25 mg PO TID [facility] Last Admin: 10/14/16 06:53 Dose: 25 mg Insulin Aspart (Novolog Vial Sliding Scale -) 1 vial SQ ACHS [facility] PRN Reason: Protocol Last Admin: 10/14/16 10:54 Dose: 8 units Insulin Detemir (Levemir Vial) 10 units SQ BIDI [facility] Last Admin: 10/14/16 06:52 Dose: 10 units Labetalol HCl (Normodyne -) 200 mg PO TID [facility] Last Admin: 10/14/16 06:52 Dose: 200 mg Losartan Potassium (Cozaar -) 25 mg PO DAILY [facility] Last Admin: 10/14/16 09:26 Dose: 25 mg Nifedipine (Procardia Xl -) 30 mg PO BID [facility] Last Admin: 10/14/16 09:26 Dose: 30 mg Oxycodone HCl (Roxicodone -) 5 mg PO Q6H PRN PRN Reason: PAIN Last Admin: 10/14/16 09:24 Dose: 5 mg Sevelamer Carbonate (Renvela -) 1,600 mg PO TIDCM [facility] Last Admin: 10/14/16 09:27 Dose: 1,600 mg Simethicone (Mylicon -) 80 mg PO BID PRN Last Admin: 10/13/16 23:10 Dose: 80 mg - Objective Vital Signs: Vital Signs Temperature 98.3 F 10/14/16 09:00 Pulse Rate 95 H 10/14/16 09:00 Respiratory Rate 20 10/14/16 09:00 Blood Pressure 151/98 10/14/16 09:00 O2 Sat by Pulse Oximetry (%) 98 10/13/16 21:00 Constitutional: Yes: No Distress Cardiovascular: Yes: Regular Rate and Rhythm Respiratory: Yes: CTA Bilaterally Gastrointestinal: Yes: Normal Bowel Sounds, Soft. No: Distention, Tenderness Edema: Yes Labs: CBC, BMP 10/14/16 06:20 10/14/16 06:20 INR, PTT INR 1.25 (0.82-1.09) H 10/12/16 17:10 Problem List - Problems (1) Anemia Code(s): D64.9 - ANEMIA, UNSPECIFIED (2) End stage chronic kidney disease Code(s): N18.6 - END STAGE RENAL DISEASE Z99.2 - DEPENDENCE ON RENAL DIALYSIS (3) Dialysis patient Code(s): Z99.2 - DEPENDENCE ON RENAL DIALYSIS Assessment/Plan PLAN H/HCT better GI eval noted, EGD cancelled due to high sugars Stool guaic negative Protonix IV avoid NSAIDS diabetic control -- Endocrinology eval DVT prophylaxis-- SCD HD per renal xray of knee--patellar fracture-- Ortho eval
--- NOTE | 2016-10-14 13:22 | PN ---
Progress Note (short form) - Note Progress Note: Renal follow up for ESRD on HD pt seen and examined at the bedside pt s/p dialysis yesterday reports discomfort in right knee no sob, chest ain legs remain swollen Vital Signs Temperature 98.0 F 10/14/16 13:04 Pulse Rate 86 10/14/16 13:04 Respiratory Rate 20 10/14/16 13:04 Blood Pressure 128/76 10/14/16 13:04 O2 Sat by Pulse Oximetry (%) 98 10/14/16 09:00 Intake & Output 10/11/16 10/12/16 10/13/16 10/14/16 23:59 23:59 23:59 23:59 Weight 146 lb 3 oz 146 lb 3 oz Gen: NAD, awake and alert CVS: RRR, No M/R Lungs: CTA Ext: 2+ LE edema CBC, BMP 10/14/16 06:20 10/14/16 06:20 Current Medications Acetaminophen (Tylenol -) 325 mg PO Q6H PRN PRN Reason: PAIN Last Admin: 10/14/16 09:26 Dose: 325 mg Cinacalcet (Sensipar -) 60 mg PO DAILY [facility] Last Admin: 10/14/16 09:27 Dose: 60 mg Clonidine (Catapres -) 0.3 mg PO TID [facility] Last Admin: 10/14/16 06:53 Dose: 0.3 mg Gabapentin (Neurontin -) 100 mg PO TID [facility] Last Admin: 10/14/16 06:52 Dose: 100 mg Hydralazine HCl (Apresoline -) 25 mg PO TID [facility] Last Admin: 10/14/16 06:53 Dose: 25 mg Insulin Aspart (Novolog Vial Sliding Scale -) 1 vial SQ ACHS [facility] PRN Reason: Protocol Last Admin: 10/14/16 10:54 Dose: 8 units Insulin Detemir (Levemir Vial) 10 units SQ BIDI [facility] Last Admin: 10/14/16 06:52 Dose: 10 units Labetalol HCl (Normodyne -) 200 mg PO TID [facility] Last Admin: 10/14/16 06:52 Dose: 200 mg Losartan Potassium (Cozaar -) 25 mg PO DAILY [facility] Last Admin: 10/14/16 09:26 Dose: 25 mg Nifedipine (Procardia Xl -) 30 mg PO BID [facility] Last Admin: 10/14/16 09:26 Dose: 30 mg Oxycodone HCl (Roxicodone -) 5 mg PO Q6H PRN PRN Reason: PAIN Last Admin: 10/14/16 09:24 Dose: 5 mg Sevelamer Carbonate (Renvela -) 1,600 mg PO TIDCM [facility] Last Admin: 10/14/16 11:59 Dose: 1,600 mg Simethicone (Mylicon -) 80 mg PO BID PRN Last Admin: 10/13/16 23:10 Dose: 80 mg A/P 26 year old woman with PMhx of ESRD on HD (TTS) x 6 years, Hypertension, DM type 1, Myositis, Hx of multiple episodes of DKA who presented when she was sent in from her outpatient HD unit for Hgb of 6.3 as outpatient. #Acute on Chronic Anemia pt with good response to PRBC transfusion off NSAIDs GI follow up, possible EGD #ESRD on HD with volume overload s/p HD yesterday, no acute indication for treatment today will plan for dialysis tomorrow with aggressive UF #Patellar fracture supportive care Ortho eval #Myositis Supportive care pt was supposed to follow up with Rheum as an outpatient #Renal osteodystrphy continue phos binder #DM Type 1 SC insulin Trend FS Thank you Nathan Vo DO Problem List - Problems (1) Diabetes mellitus, insulin dependent (IDDM), uncontrolled Code(s): E10.65 - TYPE 1 DIABETES MELLITUS WITH HYPERGLYCEMIA Qualifiers: Diabetes mellitus complication status: with unspecified complications Qualified Code(s): E10.8 - Type 1 diabetes mellitus with unspecified complications; E10.65 - Type 1 diabetes mellitus with hyperglycemia (2) Fluid overload Code(s): E87.70 - FLUID OVERLOAD, UNSPECIFIED Qualifiers: Hypervolemia type: unspecified Qualified Code(s): E87.70 - Fluid overload, unspecified (3) Myositis Code(s): M60.9 - MYOSITIS, UNSPECIFIED (4) Swelling of right lower extremity Code(s): M79.89 - OTHER SPECIFIED SOFT TISSUE DISORDERS (5) HTN (hypertension) Code(s): I10 - ESSENTIAL (PRIMARY) HYPERTENSION Qualifiers: Hypertension type: essential hypertension Qualified Code(s): I10 - Essential (primary) hypertension (6) End stage chronic kidney disease Code(s): N18.6 - END STAGE RENAL DISEASE Z99.2 - DEPENDENCE ON RENAL DIALYSIS
[2016-10-14] MEDS: HYDROmorphone HCL CARPU-JECT 1 MG/1 ML DISP.SYRIN IVPB PRN (18:21)
--- NOTE | 2016-10-14 19:25 | PN ---
Progress Note (short form) - Note Progress Note: EGD aborted this AM due to a BS of 506. Rescheduled for tomorrow, 8AM Please be certain to check BS early (5AM) and treat as needed to correct prior to procedure
--- NOTE | 2016-10-14 23:14 | CONSULT ---
Consult Consult Specialty:: endocrine Referred by:: dr.[email or web address] ford Reason for Consultation:: iddm uncontrolled - History of Present Illness Chief Complaint: high sugar History of Present Illness: 26y f iddm esrd,anemia found with hb 6.3 hyperglycemia prior to endoscopy,with pmh htn,pulmonary emboi,dvt,has been on ac with coumadin,admitted with weakness and high sugars - History Source History Provided By: Patient - Past Medical History Cardio/Vascular: Yes: CHF, HTN, Other (thrombus in heart per echo 11/2013; ? subclavian vein thromboses s/p dialysis catheters in the past) Pulmonary: Yes: Pulmonary Embolus Renal/: Yes: Renal Failure, Hemodialysis ...LMP: 08/17/14 ...: No Infectious Disease: Yes: MRSA (history of bacteremia, recent mrsa foot abscess) Endocrine: Yes: Diabetes Mellitus (type 1 on insulin pump) Additional Medical History: DVT, PE on coumadin - Past Surgical History Past Surgical History: Yes: AV Fistula/Graft (Right arm) - Alcohol/Substance Use Hx Alcohol Use: No History of Substance Use: reports: None - Smoking History Smoking history: Former smoker Have you smoked in the past 12 months: No Aproximately how many cigarettes per day: 10 - Social History Usual Living Arrangement: With Parent ADL: Independent Occupation: unemployed History of Recent Travel: No Home Medications - Allergies Allergies/Adverse Reactions: Allergies Allergy/AdvReac Type Severity Reaction Status Date / Time No Known Drug Allergies Allergy Verified 08/19/16 14:39 - Home Medications Home Medications: Ambulatory Orders Gabapentin 100 mg PO TID 03/11/16 Clonidine HCl [Catapres -] 0.3 mg PO TID #90 tablet 07/14/16 Hydralazine HCl [Apresoline -] 25 mg PO TID #60 tablet 07/14/16 Labetalol HCl [Normodyne -] 200 mg PO TID #90 tablet 07/14/16 Losartan Potassium [Cozaar -] 25 mg PO DAILY #30 tablet 07/14/16 Sevelamer Carbonate [Renvela -] 1,600 mg PO TIDCM #60 tab 07/14/16 Cinacalcet HCl [Sensipar] 60 mg PO DAILY 08/05/16 Sennosides [Senna] 8.6 mg PO DAILY 08/05/16 Insulin (Levemir) [Levemir Flexpen -] 10 units SQ BID #5 pen 08/11/16 Insulin Lispro [Humalog Kwikpen U-100] 1 unit SQ TID #2 units 08/11/16 Oxycodone HCl/Acetaminophen [Percocet 5-325 mg Tablet] 1 tab PO Q6H PRN #60 tablet MDD 4 08/11/16 Tramadol HCl 50 mg PO PRN PRN 08/17/16 Ibuprofen [Motrin -] 600 mg PO Q6H PRN #30 tablet 08/27/16 Nifedipine [Procardia Xl] 30 mg PO BID #0 tab 08/27/16 Family Disease History - Family Disease History Family Disease History: Diabetes: Grandparent (HTN), Heart Disease: Grandparent , Other: Father (unknown), Mother (HTN) Review of Systems - Review of Systems Constitutional: reports: Lethargy, Loss of Appetite, Unintentional Wgt. Loss, Weakness Eyes: reports: Blurred Vision HENT: reports: No Symptoms Neck: reports: No Symptoms Cardiovascular: reports: Shortness of Breath Respiratory: reports: Exercise Intolerance, SOB, SOB on Exertion Gastrointestinal: reports: Constipation, Indigestion, Nausea Genitourinary: reports: No Symptoms Breasts: reports: No Symptoms Reported Musculoskeletal: reports: Extremity Pain, Joint Swelling, Muscle Pain, Muscle Cramps, Muscle Weakness Integumentary: reports: Lesions Neurological: reports: Dizziness, Headache, Numbness Physical Exam Vital Signs: Vital Signs Temperature 97.9 F 10/14/16 22:09 Pulse Rate 77 10/14/16 22:09 Respiratory Rate 20 10/14/16 22:09 Blood Pressure 118/72 10/14/16 22:09 O2 Sat by Pulse Oximetry (%) 98 10/14/16 09:00 Constitutional: Yes: Calm Eyes: Yes: EOM Intact HENT: Yes: Normocephalic Neck: Yes: Trachea Midline Cardiovascular: Yes: Regular Rate and Rhythm Respiratory: Yes: CTA Bilaterally Gastrointestinal: Yes: Normal Bowel Sounds ...Rectal Exam: Yes: Deferred Edema: No Wound/Incision: Yes: Well Approximated Neurological: Yes: Alert, Oriented Labs: CBC, BMP 10/14/16 06:20 10/14/16 06:20 Problem List - Problems (1) Anemia Code(s): D64.9 - ANEMIA, UNSPECIFIED Qualifiers: Folate deficiency anemia type: dietary (2) End stage chronic kidney disease Code(s): N18.6 - END STAGE RENAL DISEASE Z99.2 - DEPENDENCE ON RENAL DIALYSIS (3) Dialysis patient Code(s): Z99.2 - DEPENDENCE ON RENAL DIALYSIS (4) Abdominal pain Code(s): R10.9 - UNSPECIFIED ABDOMINAL PAIN (5) DKA (diabetic ketoacidosis) Code(s): E13.10 - OTH DIABETES MELLITUS WITH KETOACIDOSIS WITHOUT COMA Qualifiers: Diabetes mellitus type: type 1 Assessment/Plan Current Active Problems Anemia (Acute) End stage chronic kidney disease (Acute) Leukocytosis (Acute) Dialysis patient (Chronic) iddm uncontrolled hyperglycemia Abnormal Lab Results 10/14/16 10/14/16 06:20 06:20 RBC 3.38 L Hgb 8.6 L Hct 27.7 L MCH 25.5 L MCHC 31.1 L RDW 18.1 H Monocytes % 15.2 H Sodium 132 L Chloride 91 L Anion Gap 19 H BUN 40 H D Creatinine 4.0 H D Random Glucose 520 H* D Calcium 7.8 L Alkaline Phosphatase 873 H Albumin 2.3 L Laboratory Results - last 24 hr 10/12/16 10/12/16 10/14/16 21:00 21:00 05:53 WBC RBC Hgb Hct MCV MCH MCHC RDW Plt Count MPV Neutrophils % Lymphocytes % Monocytes % Eosinophils % Basophils % Sodium Potassium Chloride Carbon Dioxide Anion Gap BUN Creatinine Creat Clearance w eGFR POC Glucometer 560 Random Glucose Calcium Total Bilirubin AST ALT Alkaline Phosphatase Total Protein Albumin Stool Occult Blood Hepatitis A Ab Total Negative Hep Bs Antigen Negative Hep Bs Antibody Reactive Hep B Core Total Ab Negative Hepatitis C Antibody <0.1 10/14/16 10/14/16 10/14/16 06:20 06:20 06:20 WBC 8.9 RBC 3.38 L Hgb 8.6 L Hct 27.7 L MCV 81.9 MCH 25.5 L MCHC 31.1 L RDW 18.1 H Plt Count 417 MPV 8.7 Neutrophils % 74.9 Lymphocytes % 8.3 D Monocytes % 15.2 H Eosinophils % 0.9 Basophils % 0.7 Sodium 132 L Potassium 4.2 Chloride 91 L Carbon Dioxide 22 Anion Gap 19 H BUN 40 H D Creatinine 4.0 H D Creat Clearance w eGFR 13.43 POC Glucometer Random Glucose 520 H* D Cancelled Calcium 7.8 L Total Bilirubin 0.6 D AST 21 ALT 14 Alkaline Phosphatase 873 H Total Protein 7.4 Albumin 2.3 L Stool Occult Blood Hepatitis A Ab Total Hep Bs Antigen Hep Bs Antibody Hep B Core Total Ab Hepatitis C Antibody 10/14/16 10/14/16 10/14/16 07:00 07:37 10:38 WBC RBC Hgb Hct MCV MCH MCHC RDW Plt Count MPV Neutrophils % Lymphocytes % Monocytes % Eosinophils % Basophils % Sodium Potassium Chloride Carbon Dioxide Anion Gap BUN Creatinine Creat Clearance w eGFR POC Glucometer 506 323 Random Glucose Calcium Total Bilirubin AST ALT Alkaline Phosphatase Total Protein Albumin Stool Occult Blood Negative Hepatitis A Ab Total Hep Bs Antigen Hep Bs Antibody Hep B Core Total Ab Hepatitis C Antibody 10/14/16 10/14/16 16:33 21:47 WBC RBC Hgb Hct MCV MCH MCHC RDW Plt Count MPV Neutrophils % Lymphocytes % Monocytes % Eosinophils % Basophils % Sodium Potassium Chloride Carbon Dioxide Anion Gap BUN Creatinine Creat Clearance w eGFR POC Glucometer 230 109 Random Glucose Calcium Total Bilirubin AST ALT Alkaline Phosphatase Total Protein Albumin Stool Occult Blood Hepatitis A Ab Total Hep Bs Antigen Hep Bs Antibody Hep B Core Total Ab Hepatitis C Antibody plan: bgm q4hrs levemir 10 units bid iv d5.5ns if sugar below 100 before procedure
[2016-10-15] MEDS: HYDROmorphone HCL CARPU-JECT 1 MG/1 ML DISP.SYRIN IVPB PRN ×4 (01:00→21:18)
[2016-10-15] MEDS: INSULIN SLIDING SCALE (NOVOLOG) 1 VIAL SQ SCH ×6 (02:05→22:44)
[2016-10-15] MEDS: ACETAMINOPHEN 325 MG TABLET (FP) PO PRN ×2 (03:45→11:41)
[2016-10-15] MEDS: oxyCODONE HCL 5 MG TABLET PO PRN ×3 (03:46→16:33)
[2016-10-15] MEDS ORDERED: INSULIN (NOVOLOG) ASPART 100 UNITS/ML 10ML VIAL ONE ×2 (04:59→18:41)
[2016-10-15] MEDS: INSULIN DETEMIR 100 UNITS/ML MDV SQ SCH ×2 (06:30→16:34)
[2016-10-15] MEDS: LABETALOL HCL 200 MG TABLET (FP) PO SCH ×3 (06:31→22:42)
[2016-10-15] MEDS: GABAPENTIN 100 MG CAPSULE (FP) PO SCH ×3 (06:31→22:43)
[2016-10-15] MEDS: cloNIDine HCL 0.1 MG TABLET PO SCH ×3 (06:31→22:43)
[2016-10-15] MEDS: hydrALAZINE HCL 25 MG TABLET (FP) PO SCH ×3 (06:31→22:42)
[2016-10-15 07:49] LABS: ANION GAP 17 (8-16); CALCIUM 7.5 mg/dL (8.5-10.1); CO2 24 mmol/L (21-32); GLUCOSE,RANDOM 293 mg/dL (74-106)
[2016-10-15 07:52] LABS: CREATININE 5.4 mg/dL (0.55-1.02)
[2016-10-15] MEDS ORDERED: PROPOFOL 20 ML ONE (08:00)
[2016-10-15] MEDS ORDERED: LIDOCAINE HCL/PF 2% SDV 5ML VIAL ONE (08:00)
--- NOTE | 2016-10-15 09:06 | PN ---
Progress Note (short form) - Note Progress Note: ADDENDUM: S/P EGD. Normal except for retained food secondary to gastroparesis. No bleeding noted and no source of bleeding. Resume diet Recommend Creon 36K 2 caps with every meal Consider d/c PPI if patient tolerates. I offered to f/u with patient as opt Non-compliance is an issue.
[2016-10-15] MEDS: SEVELAMER CARBONATE 800 MG TAB (FP) PO SCH ×4 (09:12→16:33)
[2016-10-15] MEDS ORDERED: PANTOPRAZOLE SODIUM 100 ML IVPB SCH (10:00)
[2016-10-15 10:25] LABS: MCH 25.1 pg (25.7-33.7); MCHC 31.1 g/dl (32.0-36.0); MEAN CELL VOLUME 80.8 fl (80-96); MEAN PLT VOLUME 8.1 fl (7.5-11.1); PLATELET COUNT 446 K/MM3 (134-434); RDW 17.9 % (11.6-15.6); WHITE BLOOD COUNT 10.9 K/mm3 (4.0-10.0)
[2016-10-15] MEDS: CINACALCET HCL 30 MG TAB (FP) PO SCH ×2 (11:17→14:26)
[2016-10-15] MEDS: NIFEdipine E.R. 30 MG TABLET (FP) PO SCH ×2 (11:17→22:43)
[2016-10-15] MEDS: LOSARTAN POTASSIUM 25 MG TABLET PO SCH (11:17)
--- NOTE | 2016-10-15 11:40 | PN ---
Progress Note, Physician Chief Complaint: pt examined in dialysis has pain in leg KNee pain + eating breakfast - Current Medication List Current Medications: Active Medications Acetaminophen (Tylenol -) 325 mg PO Q6H PRN PRN Reason: PAIN Last Admin: 10/15/16 03:45 Dose: 325 mg Cinacalcet (Sensipar -) 60 mg PO DAILY [facility] Last Admin: 10/15/16 11:17 Dose: Not Given Clonidine (Catapres -) 0.3 mg PO TID [facility] Last Admin: 10/15/16 06:31 Dose: 0.3 mg Epoetin Abiel (Epogen -) 20,000 units IVPUSH ONCE ONE Stop: 10/15/16 06:01 Gabapentin (Neurontin -) 100 mg PO TID [facility] Last Admin: 10/15/16 06:31 Dose: 100 mg Hydralazine HCl (Apresoline -) 25 mg PO TID [facility] Last Admin: 10/15/16 06:31 Dose: 25 mg Hydromorphone HCl (Dilaudid Injection -) 1 mg IVPB Q6H PRN PRN Reason: PAIN Last Admin: 10/15/16 06:43 Dose: 1 mg Pantoprazole Sodium (Protonix 40mg Ivpb (Pre-Docked)) 100 mls @ 200 mls/hr IVPB DAILY [facility] Insulin Aspart (Novolog Vial Sliding Scale -) 1 vial SQ Q4HPO [facility] PRN Reason: Protocol Last Admin: 10/15/16 11:16 Dose: Not Given Insulin Detemir (Levemir Vial) 10 units SQ BIDI [facility] Last Admin: 10/15/16 06:30 Dose: 10 units Labetalol HCl (Normodyne -) 200 mg PO TID [facility] Last Admin: 10/15/16 06:31 Dose: 200 mg Losartan Potassium (Cozaar -) 25 mg PO DAILY [facility] Last Admin: 10/15/16 11:17 Dose: Not Given Nifedipine (Procardia Xl -) 30 mg PO BID [facility] Last Admin: 10/15/16 11:17 Dose: Not Given Oxycodone HCl (Roxicodone -) 5 mg PO Q6H PRN PRN Reason: PAIN Last Admin: 10/15/16 03:46 Dose: 5 mg Sevelamer Carbonate (Renvela -) 1,600 mg PO TIDCM [facility] Last Admin: 10/15/16 11:17 Dose: Not Given Simethicone (Mylicon -) 80 mg PO BID PRN Last Admin: 10/13/16 23:10 Dose: 80 mg - Objective Vital Signs: Vital Signs Temperature 98.4 F 10/15/16 09:10 Pulse Rate 90 10/15/16 11:00 Respiratory Rate 18 10/15/16 11:00 Blood Pressure 124/78 10/15/16 11:00 O2 Sat by Pulse Oximetry (%) 99 10/15/16 09:00 Constitutional: Yes: No Distress Cardiovascular: Yes: Regular Rate and Rhythm Respiratory: Yes: CTA Bilaterally Gastrointestinal: Yes: Normal Bowel Sounds, Soft. No: Distention, Tenderness Edema: Yes Edema: LLE: 1+, RLE: 1+ Labs: CBC, BMP 10/15/16 10:00 10/15/16 06:20 INR, PTT INR 1.25 (0.82-1.09) H 10/12/16 17:10 Problem List - Problems (1) Anemia Code(s): D64.9 - ANEMIA, UNSPECIFIED Qualifiers: Folate deficiency anemia type: dietary (2) End stage chronic kidney disease Code(s): N18.6 - END STAGE RENAL DISEASE Z99.2 - DEPENDENCE ON RENAL DIALYSIS (3) Dialysis patient Code(s): Z99.2 - DEPENDENCE ON RENAL DIALYSIS (4) Diabetes mellitus, insulin dependent (IDDM), uncontrolled Code(s): E10.65 - TYPE 1 DIABETES MELLITUS WITH HYPERGLYCEMIA Qualifiers: Diabetes mellitus complication status: with unspecified complications Qualified Code(s): E10.8 - Type 1 diabetes mellitus with unspecified complications; E10.65 - Type 1 diabetes mellitus with hyperglycemia Assessment/Plan PLAN H/HCT better GI eval noted, EGD results noted Stool guaic negative dc Protonix avoid NSAIDS diabetic control -- Endocrinology eval noted DVT prophylaxis-- SCD HD per renal xray of knee--patellar fracture-- Ortho eval pending transfuse one unit of PRBC today
[2016-10-15] MEDS ORDERED: EPOETIN ALFA 20,000 UNIT/1 ML VIAL IVPUSH ONE (11:45)
--- NOTE | 2016-10-15 13:11 | PN ---
Progress Note, Physician Chief Complaint: Patient seen in HD. Had EGD earlier. Undigested food only seen. Hgb remains low. To receive 1 unit of PRBC. No chest pains. Feels weak. - Current Medication List Current Medications: Active Medications Acetaminophen (Tylenol -) 325 mg PO Q6H PRN PRN Reason: PAIN Last Admin: 10/15/16 11:41 Dose: 325 mg Cinacalcet (Sensipar -) 60 mg PO DAILY [facility] Last Admin: 10/15/16 11:17 Dose: Not Given Clonidine (Catapres -) 0.3 mg PO TID [facility] Last Admin: 10/15/16 06:31 Dose: 0.3 mg Gabapentin (Neurontin -) 100 mg PO TID [facility] Last Admin: 10/15/16 06:31 Dose: 100 mg Hydralazine HCl (Apresoline -) 25 mg PO TID [facility] Last Admin: 10/15/16 06:31 Dose: 25 mg Hydromorphone HCl (Dilaudid Injection -) 1 mg IVPB Q6H PRN PRN Reason: PAIN Last Admin: 10/15/16 06:43 Dose: 1 mg Insulin Aspart (Novolog Vial Sliding Scale -) 1 vial SQ Q4HPO [facility] PRN Reason: Protocol Last Admin: 10/15/16 11:16 Dose: Not Given Insulin Detemir (Levemir Vial) 10 units SQ BIDI [facility] Last Admin: 10/15/16 06:30 Dose: 10 units Labetalol HCl (Normodyne -) 200 mg PO TID [facility] Last Admin: 10/15/16 06:31 Dose: 200 mg Losartan Potassium (Cozaar -) 25 mg PO DAILY [facility] Last Admin: 10/15/16 11:17 Dose: Not Given Nifedipine (Procardia Xl -) 30 mg PO BID [facility] Last Admin: 10/15/16 11:17 Dose: Not Given Oxycodone HCl (Roxicodone -) 7.5 mg PO Q6H PRN PRN Reason: PAIN Sevelamer Carbonate (Renvela -) 1,600 mg PO TIDCM [facility] Last Admin: 10/15/16 11:43 Dose: 1,600 mg Simethicone (Mylicon -) 80 mg PO BID PRN Last Admin: 10/13/16 23:10 Dose: 80 mg - Objective Vital Signs: Vital Signs Temperature 98.4 F 10/15/16 09:10 Pulse Rate 94 H 10/15/16 12:00 Respiratory Rate 18 10/15/16 12:00 Blood Pressure 124/71 10/15/16 12:00 O2 Sat by Pulse Oximetry (%) 99 10/15/16 09:00 Constitutional: Yes: Calm, Anxious, Pallor Eyes: Yes: Conjunctiva Clear HENT: Yes: Atraumatic Cardiovascular: Yes: S1, S2 Respiratory: Yes: Regular, Rales Gastrointestinal: Yes: Normal Bowel Sounds Labs: CBC, BMP 10/15/16 10:00 10/15/16 06:20 INR, PTT INR 1.25 (0.82-1.09) H 10/12/16 17:10 Problem List - Problems (1) Anemia Code(s): D64.9 - ANEMIA, UNSPECIFIED Qualifiers: Folate deficiency anemia type: dietary (2) End stage chronic kidney disease Code(s): N18.6 - END STAGE RENAL DISEASE Z99.2 - DEPENDENCE ON RENAL DIALYSIS (3) Abdominal pain Code(s): R10.9 - UNSPECIFIED ABDOMINAL PAIN (4) Diabetes mellitus, insulin dependent (IDDM), uncontrolled Code(s): E10.65 - TYPE 1 DIABETES MELLITUS WITH HYPERGLYCEMIA Qualifiers: Diabetes mellitus complication status: with unspecified complications Qualified Code(s): E10.8 - Type 1 diabetes mellitus with unspecified complications; E10.65 - Type 1 diabetes mellitus with hyperglycemia (5) ESRD (end stage renal disease) on dialysis Code(s): N18.6 - END STAGE RENAL DISEASE Z99.2 - DEPENDENCE ON RENAL DIALYSIS (6) HTN (hypertension) Code(s): I10 - ESSENTIAL (PRIMARY) HYPERTENSION Qualifiers: Hypertension type: essential hypertension Qualified Code(s): I10 - Essential (primary) hypertension Assessment/Plan 26 y/o female with ESRD, admitted with profound Anemia. Has received several units of blood. W/u so far negative for any specific lesions. HD orders reviewed with the RN.
[2016-10-15] MEDS ORDERED: PT OWN MED DRAWER 7, Y5N ONE ×2 (14:22→21:14)
[2016-10-16] MEDS: oxyCODONE HCL 5 MG TABLET PO PRN ×3 (01:28→18:50)
[2016-10-16] MEDS: ACETAMINOPHEN 325 MG TABLET (FP) PO PRN ×3 (01:29→18:49)
[2016-10-16] MEDS: INSULIN SLIDING SCALE (NOVOLOG) 1 VIAL SQ SCH ×6 (01:38→21:04)
[2016-10-16] MEDS: HYDROmorphone HCL CARPU-JECT 1 MG/1 ML DISP.SYRIN IVPB PRN ×3 (03:39→20:00)
[2016-10-16] MEDS: LABETALOL HCL 200 MG TABLET (FP) PO SCH ×3 (07:00→23:36)
[2016-10-16] MEDS: GABAPENTIN 100 MG CAPSULE (FP) PO SCH ×3 (07:00→21:03)
[2016-10-16] MEDS: cloNIDine HCL 0.1 MG TABLET PO SCH ×3 (07:00→23:36)
[2016-10-16] MEDS: hydrALAZINE HCL 25 MG TABLET (FP) PO SCH ×3 (07:00→23:36)
[2016-10-16] MEDS: INSULIN DETEMIR 100 UNITS/ML MDV SQ SCH ×2 (07:04→20:41)
[2016-10-16] MEDS: SEVELAMER CARBONATE 800 MG TAB (FP) PO SCH ×4 (08:15→20:41)
--- NOTE | 2016-10-16 09:36 | CON.ORTH ---
Consult Reason for Consultation:: right patella fx - Past Medical History Cardio/Vascular: Yes: CHF, HTN, Other (thrombus in heart per echo 11/2013; ? subclavian vein thromboses s/p dialysis catheters in the past) Pulmonary: Yes: Pulmonary Embolus Renal/: Yes: Renal Failure, Hemodialysis ...LMP: 08/17/14 ...: No Infectious Disease: Yes: MRSA (history of bacteremia, recent mrsa foot abscess) Endocrine: Yes: Diabetes Mellitus (type 1 on insulin pump) Additional Medical History: DVT, PE on coumadin - Past Surgical History Past Surgical History: Yes: AV Fistula/Graft (Right arm) - Alcohol/Substance Use Hx Alcohol Use: No History of Substance Use: reports: None - Smoking History Smoking history: Former smoker Have you smoked in the past 12 months: No Aproximately how many cigarettes per day: 10 - Social History Usual Living Arrangement: With Parent ADL: Independent Occupation: unemployed History of Recent Travel: No Home Medications - Allergies Allergies/Adverse Reactions: Allergies Allergy/AdvReac Type Severity Reaction Status Date / Time No Known Drug Allergies Allergy Verified 08/19/16 14:39 - Home Medications Home Medications: Ambulatory Orders Gabapentin 100 mg PO TID 03/11/16 Clonidine HCl [Catapres -] 0.3 mg PO TID #90 tablet 07/14/16 Hydralazine HCl [Apresoline -] 25 mg PO TID #60 tablet 07/14/16 Labetalol HCl [Normodyne -] 200 mg PO TID #90 tablet 07/14/16 Losartan Potassium [Cozaar -] 25 mg PO DAILY #30 tablet 07/14/16 Sevelamer Carbonate [Renvela -] 1,600 mg PO TIDCM #60 tab 07/14/16 Cinacalcet HCl [Sensipar] 60 mg PO DAILY 08/05/16 Sennosides [Senna] 8.6 mg PO DAILY 08/05/16 Insulin (Levemir) [Levemir Flexpen -] 10 units SQ BID #5 pen 08/11/16 Insulin Lispro [Humalog Kwikpen U-100] 1 unit SQ TID #2 units 08/11/16 Oxycodone HCl/Acetaminophen [Percocet 5-325 mg Tablet] 1 tab PO Q6H PRN #60 tablet MDD 4 08/11/16 Tramadol HCl 50 mg PO PRN PRN 08/17/16 Ibuprofen [Motrin -] 600 mg PO Q6H PRN #30 tablet 08/27/16 Nifedipine [Procardia Xl] 30 mg PO BID #0 tab 08/27/16 Family Disease History - Family Disease History Family Disease History: Diabetes: Grandparent (HTN), Heart Disease: Grandparent , Other: Father (unknown), Mother (HTN) Physical Exam for Ortho Vital Signs: Vital Signs Temperature 99.3 F 10/16/16 08:00 Pulse Rate 103 H 10/16/16 08:00 Respiratory Rate 20 10/16/16 08:00 Blood Pressure 149/93 10/16/16 08:00 O2 Sat by Pulse Oximetry (%) 99 10/15/16 21:00 Labs: CBC, BMP 10/15/16 10:00 10/15/16 06:20 INR, PTT INR 1.25 (0.82-1.09) H 10/12/16 17:10 - Lower Extremity Knee: Yes: Right, Other (minimal tenderness, rom 0-120, able to SLR, able to ambulate without pain, nvi) Imaging - Results X-ray: Report Reviewed, Image Reviewed Assessment/Plan 26y f iddm esrd,anemia found with hb 6.3 hyperglycemia prior to endoscopy,with pmh htn,pulmonary emboi,dvt,has been on ac with coumadin,admitted with weakness and high sugars. Pt fell 1 month ago c/o right knee pain that is improving a/p- Right patella avulsion fx- patella tendon intact Given amount of time since injury and pts lack of impairment with right knee will not immobilize pt WBAT No surgery/further testing required for right knee f/u as outpt in 10-14 days d/w DR. Garcia
[2016-10-16] MEDS ORDERED: INSULIN (NOVOLOG) ASPART 100 UNITS/ML 10ML VIAL ONE ×2 (10:10→20:38)
[2016-10-16] MEDS ORDERED: PT OWN MED DRAWER 7, Y5N ONE (10:11)
[2016-10-16] MEDS: CINACALCET HCL 30 MG TAB (FP) PO SCH (10:50)
[2016-10-16] MEDS: LOSARTAN POTASSIUM 25 MG TABLET PO SCH (11:00)
[2016-10-16] MEDS: NIFEdipine E.R. 30 MG TABLET (FP) PO SCH ×2 (11:00→21:02)
--- NOTE | 2016-10-16 11:39 | PN ---
Progress Note (short form) - Note Progress Note: pt seen/ examined. ortho consult noted/appreciated. continue to have pain also complains of pain in right thigh-- chronic low grade temp Vital Signs Temp 99.3 F 10/16/16 08:00 Pulse 103 H 10/16/16 08:00 Resp 20 10/16/16 08:00 BP 149/93 10/16/16 08:00 Pulse Ox 99 10/15/16 21:00 Intake & Output 10/15/16 10/15/16 10/16/16 11:59 23:59 11:59 Intake Total 50 825 450 Balance 50 825 450 Intake: IV 50 IVPB 50 50 Oral 0 775 400 Other: Voiding Method Toilet Toilet Bowel Movement No No No Active Medications Acetaminophen (Tylenol -) 325 mg PO Q6H PRN PRN Reason: PAIN Last Admin: 10/16/16 07:03 Dose: 325 mg Cinacalcet (Sensipar -) 60 mg PO DAILY [facility] Last Admin: 10/16/16 10:50 Dose: 60 mg Clonidine (Catapres -) 0.3 mg PO TID [facility] Last Admin: 10/16/16 07:00 Dose: 0.3 mg Gabapentin (Neurontin -) 100 mg PO TID [facility] Last Admin: 10/16/16 07:00 Dose: 100 mg Hydralazine HCl (Apresoline -) 25 mg PO TID [facility] Last Admin: 10/16/16 07:00 Dose: 25 mg Hydromorphone HCl (Dilaudid Injection -) 1 mg IVPB Q6H PRN PRN Reason: PAIN Last Admin: 10/16/16 10:40 Dose: 1 mg Insulin Aspart (Novolog Vial Sliding Scale -) 1 vial SQ Q4HPO [facility] PRN Reason: Protocol Last Admin: 10/16/16 10:50 Dose: Not Given Insulin Detemir (Levemir Vial) 10 units SQ BIDI [facility] Last Admin: 10/16/16 07:04 Dose: 10 units Labetalol HCl (Normodyne -) 200 mg PO TID [facility] Last Admin: 10/16/16 07:00 Dose: 200 mg Losartan Potassium (Cozaar -) 25 mg PO DAILY [facility] Last Admin: 10/15/16 11:17 Dose: Not Given Nifedipine (Procardia Xl -) 30 mg PO BID [facility] Last Admin: 10/15/16 22:43 Dose: 30 mg Oxycodone HCl (Roxicodone -) 7.5 mg PO Q6H PRN PRN Reason: PAIN Last Admin: 10/16/16 07:02 Dose: 7.5 mg Sevelamer Carbonate (Renvela -) 1,600 mg PO TIDCM [facility] Last Admin: 10/16/16 08:15 Dose: 1,600 mg Simethicone (Mylicon -) 80 mg PO BID PRN Last Admin: 10/13/16 23:10 Dose: 80 mg CBC, BMP 10/15/16 10:00 10/15/16 06:20 Physical Exam Constitutional: Yes: No Distress Cardiovascular: Yes: Regular Rate and Rhythm Respiratory: Yes: CTA Bilaterally Gastrointestinal: Yes: Normal Bowel Sounds, Soft. No: Distention, Tenderness Edema: Yes Edema: LLE: 1+, RLE: 1+ Problem List - Problems (1) Anemia Code(s): D64.9 - ANEMIA, UNSPECIFIED Qualifiers: Folate deficiency anemia type: dietary (2) End stage chronic kidney disease Code(s): N18.6 - END STAGE RENAL DISEASE Z99.2 - DEPENDENCE ON RENAL DIALYSIS (3) Dialysis patient Code(s): Z99.2 - DEPENDENCE ON RENAL DIALYSIS (4) Diabetes mellitus, insulin dependent (IDDM), uncontrolled Code(s): E10.65 - TYPE 1 DIABETES MELLITUS WITH HYPERGLYCEMIA Qualifiers: Diabetes mellitus complication status: with unspecified complications Qualified Code(s): E10.8 - Type 1 diabetes mellitus with unspecified complications; E10.65 - Type 1 diabetes mellitus with hyperglycemia Assessment/Plan stable monitor for fever physical therapy h/h stable got one unit of prbc yesterday pain control monitor sugar if stable- d/c in am pt wants to go home only. will follow
[2016-10-16 16:12] LABS: MCH 24.4 pg (25.7-33.7); MCHC 30.7 g/dl (32.0-36.0); MEAN CELL VOLUME 79.4 fl (80-96); MEAN PLT VOLUME 8.4 fl (7.5-11.1); PLATELET COUNT 398 K/MM3 (134-434); RDW 18.7 % (11.6-15.6); WHITE BLOOD COUNT 13.5 K/mm3 (4.0-10.0)
[2016-10-16 16:19] LABS: ANION GAP 12 (8-16); CALCIUM 7.9 mg/dL (8.5-10.1); CO2 28 mmol/L (21-32); CREATININE 4.6 mg/dL (0.55-1.02); GLUCOSE,RANDOM 126 mg/dL (74-106)
--- NOTE | 2016-10-16 16:34 | PN ---
Progress Note, Physician Chief Complaint: Patient seen in HD. Tolerates well. No new complaints. - Current Medication List Current Medications: Active Medications Acetaminophen (Tylenol -) 325 mg PO Q6H PRN PRN Reason: PAIN Last Admin: 10/16/16 07:03 Dose: 325 mg Cinacalcet (Sensipar -) 60 mg PO DAILY [facility] Last Admin: 10/16/16 10:50 Dose: 60 mg Clonidine (Catapres -) 0.3 mg PO TID [facility] Last Admin: 10/16/16 07:00 Dose: 0.3 mg Gabapentin (Neurontin -) 100 mg PO TID [facility] Last Admin: 10/16/16 14:57 Dose: Not Given Hydralazine HCl (Apresoline -) 25 mg PO TID [facility] Last Admin: 10/16/16 07:00 Dose: 25 mg Hydromorphone HCl (Dilaudid Injection -) 1 mg IVPB Q6H PRN PRN Reason: PAIN Last Admin: 10/16/16 10:40 Dose: 1 mg Insulin Aspart (Novolog Vial Sliding Scale -) 1 vial SQ Q4HPO [facility] PRN Reason: Protocol Last Admin: 10/16/16 14:56 Dose: Not Given Insulin Detemir (Levemir Vial) 10 units SQ BIDI [facility] Last Admin: 10/16/16 07:04 Dose: 10 units Labetalol HCl (Normodyne -) 200 mg PO TID [facility] Last Admin: 10/16/16 07:00 Dose: 200 mg Losartan Potassium (Cozaar -) 25 mg PO DAILY [facility] Last Admin: 10/15/16 11:17 Dose: Not Given Nifedipine (Procardia Xl -) 30 mg PO BID [facility] Last Admin: 10/16/16 11:00 Dose: Not Given Oxycodone HCl (Roxicodone -) 7.5 mg PO Q6H PRN PRN Reason: PAIN Last Admin: 10/16/16 07:02 Dose: 7.5 mg Sevelamer Carbonate (Renvela -) 1,600 mg PO TIDCM [facility] Last Admin: 10/16/16 11:39 Dose: 1,600 mg Simethicone (Mylicon -) 80 mg PO BID PRN Last Admin: 10/13/16 23:10 Dose: 80 mg - Objective Vital Signs: Vital Signs Temperature 98.4 F 10/16/16 14:55 Pulse Rate 97 H 10/16/16 16:00 Respiratory Rate 18 10/16/16 16:00 Blood Pressure 164/100 10/16/16 16:00 O2 Sat by Pulse Oximetry (%) 98 10/16/16 09:00 Constitutional: Yes: No Distress, Calm, Pallor Eyes: Yes: Conjunctiva Clear HENT: Yes: Normocephalic Neck: Yes: Trachea Midline Cardiovascular: Yes: Regular Rate and Rhythm, Murmur, S1, S2 Respiratory: Yes: Regular, CTA Bilaterally Gastrointestinal: Yes: Normal Bowel Sounds, Soft Labs: CBC, BMP 10/16/16 15:00 10/16/16 15:00 INR, PTT INR 1.25 (0.82-1.09) H 10/12/16 17:10 Problem List - Problems (1) Anemia Code(s): D64.9 - ANEMIA, UNSPECIFIED Qualifiers: Qualified Code(s): D52.0 - Dietary folate deficiency anemia (2) End stage chronic kidney disease Code(s): N18.6 - END STAGE RENAL DISEASE Z99.2 - DEPENDENCE ON RENAL DIALYSIS (3) Abdominal pain Code(s): R10.9 - UNSPECIFIED ABDOMINAL PAIN (4) Diabetes mellitus, insulin dependent (IDDM), uncontrolled Code(s): E10.65 - TYPE 1 DIABETES MELLITUS WITH HYPERGLYCEMIA Qualifiers: Qualified Code(s): E10.8 - Type 1 diabetes mellitus with unspecified complications; E10.65 - Type 1 diabetes mellitus with hyperglycemia (5) ESRD (end stage renal disease) on dialysis Code(s): N18.6 - END STAGE RENAL DISEASE Z99.2 - DEPENDENCE ON RENAL DIALYSIS (6) HTN (hypertension) Code(s): I10 - ESSENTIAL (PRIMARY) HYPERTENSION Qualifiers: Qualified Code(s): I10 - Essential (primary) hypertension Assessment/Plan 26 y/o female with ESRD, admitted with profound Anemia. Has received several units of blood. Hemodialysis in progress. Vital signs stable. Hgb low. Will transfuse again today. HD orders reviewed with the RN. Ssuie Peter MD
[2016-10-17] MEDS: oxyCODONE HCL 5 MG TABLET PO PRN ×2 (01:31→08:24)
[2016-10-17] MEDS: ACETAMINOPHEN 325 MG TABLET (FP) PO PRN ×2 (01:33→08:22)
[2016-10-17] MEDS: INSULIN SLIDING SCALE (NOVOLOG) 1 VIAL SQ SCH ×3 (01:37→09:40)
[2016-10-17] MEDS: HYDROmorphone HCL CARPU-JECT 1 MG/1 ML DISP.SYRIN IVPB PRN ×2 (02:45→09:00)
[2016-10-17] MEDS: LABETALOL HCL 200 MG TABLET (FP) PO SCH (05:53)
[2016-10-17] MEDS: GABAPENTIN 100 MG CAPSULE (FP) PO SCH (05:53)
[2016-10-17] MEDS: cloNIDine HCL 0.1 MG TABLET PO SCH (05:54)
[2016-10-17] MEDS: hydrALAZINE HCL 25 MG TABLET (FP) PO SCH (05:54)
[2016-10-17] MEDS: INSULIN DETEMIR 100 UNITS/ML MDV SQ SCH (06:01)
[2016-10-17] MEDS ORDERED: INSULIN (NOVOLOG) ASPART 100 UNITS/ML 10ML VIAL ONE (06:54)
[2016-10-17 08:08] LABS: ALBUMIN 2.5 g/dl (3.4-5.0); ALK PHOS 850 U/L (45-117); ANION GAP 12 (8-16); BILIRUBIN,TOTAL 0.6 mg/dL (0.2-1.0); CALCIUM 7.9 mg/dL (8.5-10.1); CO2 30 mmol/L (21-32); CREATININE 3.1 mg/dL (0.55-1.02); GLUCOSE,RANDOM 68 mg/dL (74-106); SGOT/AST 25 U/L (15-37); SGPT/ALT 14 U/L (12-78); TOT PROT 8.2 g/dl (6.4-8.2)
[2016-10-17] MEDS: SEVELAMER CARBONATE 800 MG TAB (FP) PO SCH ×2 (08:22→12:19)
[2016-10-17 08:42] VITALS: BP 144/91; PULSE 98; TEMP 98.5
[2016-10-17] MEDS ORDERED: PT OWN MED DRAWER 7, Y5N ONE (08:51)
[2016-10-17] MEDS: CINACALCET HCL 30 MG TAB (FP) PO SCH (09:01)
[2016-10-17] MEDS: LOSARTAN POTASSIUM 25 MG TABLET PO SCH (09:01)
[2016-10-17] MEDS: NIFEdipine E.R. 30 MG TABLET (FP) PO SCH (09:01)
--- NOTE | 2016-10-17 10:54 | DS ---
Physical Examination Vital Signs: Vital Signs Temperature 98.5 F 10/17/16 08:00 Pulse Rate 98 H 10/17/16 08:00 Respiratory Rate 20 10/17/16 08:00 Blood Pressure 144/91 10/17/16 08:00 O2 Sat by Pulse Oximetry (%) 98 10/16/16 21:00 Findings/Remarks: feels ok wants to go home pain ok. Constitutional: Yes: No Distress Eyes: Yes: Conjunctiva Clear Neck: Yes: Supple Cardiovascular: Yes: Regular Rate and Rhythm Respiratory: Yes: CTA Bilaterally Gastrointestinal: Yes: Normal Bowel Sounds, Soft Edema: No Neurological: Yes: Alert Psychiatric: Yes: Alert Labs: CBC, BMP 10/16/16 15:00 10/16/16 15:00 Discharge Summary Reason For Visit: ANEMIA/DIALYSIS PATIENT Current Active Problems Anemia (Acute) End stage chronic kidney disease (Acute) Leukocytosis (Acute) Dialysis patient (Chronic) Hospital Course: 25F with pmh of anemia, IDDM, ESRD (hemodialysis MWF), HTN, DVT, and PE (off coumadin), myosistis, osteomyelitis (right 5th digit surgery),sent by dialysis this morning after they found a hemoglobin of 6.3, Na 125, K 5.5, alb 3.2 and Phos 5.9.. Last dialysis was on Wednesday and didn't end up getting it today. Patient was weak and tired but no dizziness or stomach pain. pt underwent egd--ok Also transfused pt followed by gi/ renal as well as endo for uncontrolled sugars compliance also major issue with pt-- pt strongly counselled about diet/ diabetes willd/c home today, Pt strongly advised to f/u in office in one week Pt agrees Meds reconcilled Discussed with Dr. oV also as well as nursing staff. Condition: Stable - Instructions Referrals: Edna Calero MD [Primary Care Provider] - Disposition: HOME - Home Medications Comprehensive Discharge Medication List: Ambulatory Orders Gabapentin 100 mg PO TID 03/11/16 Clonidine HCl [Catapres -] 0.3 mg PO TID #90 tablet 07/14/16 Hydralazine HCl [Apresoline -] 25 mg PO TID #60 tablet 07/14/16 Labetalol HCl [Normodyne -] 200 mg PO TID #90 tablet 07/14/16 Losartan Potassium [Cozaar -] 25 mg PO DAILY #30 tablet 07/14/16 Sevelamer Carbonate [Renvela -] 1,600 mg PO TIDCM #60 tab 07/14/16 Cinacalcet HCl [Sensipar] 60 mg PO DAILY 08/05/16 Sennosides [Senna] 8.6 mg PO DAILY 08/05/16 Insulin (Levemir) [Levemir Flexpen -] 10 units SQ BID #5 pen 08/11/16 Insulin Lispro [Humalog Kwikpen U-100] 1 unit SQ TID #2 units 08/11/16 Oxycodone HCl/Acetaminophen [Percocet 5-325 mg Tablet] 1 tab PO Q6H PRN #60 tablet MDD 4 08/11/16 Nifedipine [Procardia Xl] 30 mg PO BID #0 tab 08/27/16 Acetaminophen [Tylenol .Regular Strength -] 325 mg PO Q6H PRN #0 tablet
--- NOTE | 2016-10-17 11:40 | PN ---
Progress Note (short form) - Note Progress Note: Renal follow up for ESRD on HD pt seen and examined at the bedside awake and alert no acute complaints s/p dialysis and blood transfusion yesterday Vital Signs Temperature 98.5 F 10/17/16 08:00 Pulse Rate 98 H 10/17/16 08:00 Respiratory Rate 20 10/17/16 08:00 Blood Pressure 144/91 10/17/16 08:00 O2 Sat by Pulse Oximetry (%) 99 10/17/16 09:00 Gen: NAD, awake and alert CVS: RRR, No M/R Lungs: CTA Ext: trace to 1+ edema CBC, BMP 10/16/16 15:00 10/16/16 15:00 Laboratory Tests 10/14/16 10/16/16 10/16/16 06:20 15:00 15:00 Calcium 7.8 L 7.9 L Phosphorus 4.6 D Albumin 2.3 L Current Medications Acetaminophen (Tylenol -) 325 mg PO Q6H PRN PRN Reason: PAIN Last Admin: 10/17/16 08:22 Dose: 325 mg Cinacalcet (Sensipar -) 60 mg PO DAILY [facility] Last Admin: 10/17/16 09:01 Dose: 60 mg Clonidine (Catapres -) 0.3 mg PO TID [facility] Last Admin: 10/17/16 05:54 Dose: 0.3 mg Gabapentin (Neurontin -) 100 mg PO TID [facility] Last Admin: 10/17/16 05:53 Dose: 100 mg Hydralazine HCl (Apresoline -) 25 mg PO TID [facility] Last Admin: 10/17/16 05:54 Dose: 25 mg Hydromorphone HCl (Dilaudid Injection -) 1 mg IVPB Q6H PRN PRN Reason: PAIN Last Admin: 10/17/16 09:00 Dose: 1 mg Insulin Aspart (Novolog Vial Sliding Scale -) 1 vial SQ Q4HPO [facility] PRN Reason: Protocol Last Admin: 10/17/16 09:40 Dose: Not Given Insulin Detemir (Levemir Vial) 10 units SQ BIDI [facility] Last Admin: 10/17/16 06:01 Dose: 10 units Labetalol HCl (Normodyne -) 200 mg PO TID [facility] Last Admin: 10/17/16 05:53 Dose: 200 mg Losartan Potassium (Cozaar -) 25 mg PO DAILY [facility] Last Admin: 10/17/16 09:01 Dose: 25 mg Nifedipine (Procardia Xl -) 30 mg PO BID [facility] Last Admin: 10/17/16 09:01 Dose: 30 mg Oxycodone HCl (Roxicodone -) 7.5 mg PO Q6H PRN PRN Reason: PAIN Last Admin: 10/17/16 08:24 Dose: 7.5 mg Sevelamer Carbonate (Renvela -) 1,600 mg PO TIDCM [facility] Last Admin: 10/17/16 08:22 Dose: 1,600 mg Simethicone (Mylicon -) 80 mg PO BID PRN Last Admin: 10/13/16 23:10 Dose: 80 mg A/P 26 year old woman with PMhx of ESRD on HD (TTS) x 6 years, Hypertension, DM type 1, Myositis, Hx of multiple episodes of DKA who presented when she was sent in from her outpatient HD unit for Hgb of 6.3 as outpatient. #Acute on Chronic Anemia s/p 2 prbc transfusion yesterday will continue high dose MACIE with HD Trend CBC as outpatient GI referral for evalulation as outpatient #ESRD on HD with volume overload s/p HD yesterday, no acute indication for treatment today #Patellar fracture supportive care #Myositis Supportive care pt was supposed to follow up with Rheum as an outpatient #Renal osteodystrphy continue phos binder #DM Type 1 SC insulin Trend FS for discharge home today Thank you Nathan Vo DO Problem List - Problems (1) Diabetes mellitus, insulin dependent (IDDM), uncontrolled Code(s): E10.65 - TYPE 1 DIABETES MELLITUS WITH HYPERGLYCEMIA Qualifiers: Qualified Code(s): E10.8 - Type 1 diabetes mellitus with unspecified complications; E10.65 - Type 1 diabetes mellitus with hyperglycemia (2) Fluid overload Code(s): E87.70 - FLUID OVERLOAD, UNSPECIFIED Qualifiers: Qualified Code(s): E87.70 - Fluid overload, unspecified (3) Myositis Code(s): M60.9 - MYOSITIS, UNSPECIFIED (4) Swelling of right lower extremity Code(s): M79.89 - OTHER SPECIFIED SOFT TISSUE DISORDERS (5) HTN (hypertension) Code(s): I10 - ESSENTIAL (PRIMARY) HYPERTENSION Qualifiers: Qualified Code(s): I10 - Essential (primary) hypertension (6) End stage chronic kidney disease Code(s): N18.6 - END STAGE RENAL DISEASE Z99.2 - DEPENDENCE ON RENAL DIALYSIS
== END 2016-10-17 13:15 | disposition home or self-care (01) | DRG 811 ==
LOC: JER 15:25 → JERBED 18:32 → J6S 23:45
PROVIDERS: ADMIT Internal Medicine; ATTEND Internal Medicine
PROC: 30233N1 Transfusion of Nonautologous Red Blood Cells into Peripheral Vein, Percutaneous Approach (ICD-10-PCS; principal; 2016-10-12)
PROC: 5A1D60Z (ICD-10-PCS; 2016-10-12)
PROC: 0DJ08ZZ Inspection of Upper Intestinal Tract, Via Natural or Artificial Opening Endoscopic (ICD-10-PCS; 2016-10-15)
DX: D64.9 Anemia, unspecified (principal); N18.6 End stage renal disease; I12.0 Hypertensive chronic kidney disease with stage 5 chronic kidney disease or end stage renal disease; S82.091A Other fracture of right patella, initial encounter for closed fracture; E10.22 Type 1 diabetes mellitus with diabetic chronic kidney disease; E10.65 Type 1 diabetes mellitus with hyperglycemia; Z99.2 Dependence on renal dialysis; K31.84 Gastroparesis; E10.43 Type 1 diabetes mellitus with diabetic autonomic (poly)neuropathy; Z96.41 Presence of insulin pump (external) (internal); Z86.718 Personal history of other venous thrombosis and embolism; Z86.711 Personal history of pulmonary embolism; Z86.14 Personal history of Methicillin resistant Staphylococcus aureus infection; M60.9 Myositis, unspecified; W19.XXXA Unspecified fall, initial encounter; Y93.9 Activity, unspecified; Y92.9 Unspecified place or not applicable; E87.70 Fluid overload, unspecified
CPT/HCPCS: 36415; 36430; 73560-TC-RT; 80048; 80053; 82272; 83735; 84100; 84703; 85025; 85027; 85610; 85730; 86704; 86706; 86708; 86803; 86850; 86900; 86901; 86922; 87340; 99283-25; J0885; P9038; P9058

== ENCOUNTER 2016-12-21 06:45 | Inpatient (IN) | payer OTHER ==
--- NOTE | 2016-12-21 08:00 | PDOC ---
Attending Attestation - HPI HPI: 12/21/16 08:14 The patient is a 26 year old female, with a significant past medical history of anemia, insulin-dependent diabetes, ESRD (HD on dialysis M, W, F), hypertension , DVT and pulmonary embolism, myositis, osteomyelitis who presents to the emergency department with worsening dyspnea. Patient reports increasing dyspnea on exertion with associated chest tightness and lower extremity edema. Patient also reports elevated blood glucose levels. Patient states she feels that she may be in DKA. Patient reports increasing generalized weakness and presents to the ED for further evaluation. Patients last HD was on Wednesday12/18/2016. She denies headache or dizziness. She denies fever, chills, abdominal pain, nausea, vomit, diarrhea or constipation. She denies dysuria, frequency, urgency or hematuria. Allergies: NKA Past surgical history: myxoma removed 2013, Cholecystectomy, Social history: Former smoker PCP: Dr. Valentine Acuña - Physicial Exam PE: 12/21/16 08:14 GENERAL: Awake, alert, and fully oriented, in no acute distress HEAD: No signs of trauma EYES: PERRLA, EOMI, sclera anicteric, conjunctiva clear ENT: Auricles normal inspection, hearing grossly normal, nares patent, oropharynx clear without exudates. Moist mucosa NECK: Normal ROM, supple, no lymphadenopathy, JVD, or masses LUNGS: +Diminished breath sound at the bases. Clear to auscultation bilaterally. No wheezes, and no crackles HEART: Regular rate and rhythm, normal S1 and S2, no murmurs, rubs or gallops ABDOMEN: Soft, nontender, normoactive bowel sounds. No guarding, no rebound. No masses EXTREMITIES: 3+ LE pitting edema. Normal range of motion, No clubbing or cyanosis. No cords, erythema, or tenderness. +LUE fistula. NEUROLOGICAL: Cranial nerves II through XII grossly intact. Normal speech, normal gait SKIN: Warm, Dry, normal turgor, no rashes or lesions noted. - Medical Decision Making 12/21/16 08:14 Documentation prepared by Nicole Strong, acting as medical center manager for Jose Rhodes MD, <Nicole Strong - Last Filed: 12/21/16 08:14> - Resident Resident Name: Rylee Caballero - ED Attending Attestation I have performed the following: I have examined & evaluated the patient, The case was reviewed & discussed with the resident, I agree w/resident's findings & plan, Exceptions are as noted - Critical Care Time Total Critical Care Time: 35 Critical Care Statement: The care of this patient involved high complexity decision making to prevent further life threatening deterioration of the patient 's condition and/or to evaluate & treat vital organ system(s) failure or risk of failure. - Medical Decision Making 12/21/16 07:59 Vital Signs Temp Pulse Resp BP Pulse Ox 97.9 F 95 H 18 150/110 91 L 12/21/16 07:04 12/21/16 07:04 12/21/16 07:04 12/21/16 07:04 12/21/16 07:04 26-year-old female with past medical history of end-stage renal disease, diabetes, multiple medical problems presents with increasing dyspnea on exertion and chest tightness for 3 days. Denies fevers or chills but notices increasing lower extremity edema. She reports that her last dialysis was 3 days ago. States that her sugars is been elevated to 400-500. She feels that she may be in DKA. Patient is most likely in fluid retention secondary to end-stage renal disease. However, we'll also need to rule out diabetic ketoacidosis. Labs including acetone, BNP. Likely admission to the hospital. 12/21/16 10:06 CBC, BMP 12/21/16 08:42 12/21/16 08:05 CMP Sodium 126 mmol/L (136-145) L 12/21/16 08:05 Potassium 4.6 mmol/L (3.5-5.1) 12/21/16 08:05 Chloride 87 mmol/L (98-107) L 12/21/16 08:05 Carbon Dioxide 24 mmol/L (21-32) 12/21/16 08:05 Anion Gap 15 (8-16) 12/21/16 08:05 BUN 48 mg/dL (7-18) H 12/21/16 08:05 Creatinine 4.9 mg/dL (0.55-1.02) H 12/21/16 08:05 Creat Clearance w eGFR 10.63 (>60) 12/21/16 08:05 POC Glucometer > 400 UNITS (()) 12/21/16 08:13 Random Glucose 930 mg/dL (74-106) H* D 12/21/16 08:05 Serum Osmolality 341 mosm/kg (278-305) H 12/21/16 09:02 Calcium 7.1 mg/dL (8.5-10.1) L 12/21/16 08:05 Phosphorus 4.3 mg/dL (2.5-4.9) 12/21/16 08:05 Magnesium 1.8 mg/dL (1.8-2.4) 12/21/16 08:05 Total Bilirubin 0.8 mg/dL (0.2-1.0) D 12/21/16 08:05 AST 274 U/L (15-37) H D 12/21/16 08:05 ALT 96 U/L (12-78) H D 12/21/16 08:05 Alkaline Phosphatase 1982 U/L (45-117) H D 12/21/16 08:05 Creatine Kinase 100 IU/L (26-192) 12/21/16 08:05 Troponin I < 0.02 ng/ml (0.00-0.05) 12/21/16 08:05 Total Protein 7.1 g/dl (6.4-8.2) 12/21/16 08:05 Albumin 2.5 g/dl (3.4-5.0) L 12/21/16 08:05 Serum , Qual Negative 12/21/16 08:05 Pt in hyperosmolar hyperglycemia. Given inability to give more fluids given her ESRD history, pt would benefit from ICU admission. IV insulin, nephrology consultation, and admission. <Jose Rhodes - Last Filed: 12/21/16 10:06> Heart Score/ECG Review #1 ECG reviewed & interpreted by me at: 07:15 12/21/16 08:00 NSR 94 Q wave III, aVF, poor R wave progression, T wave flat avL, no std/nai, QTC 495 msec <Jose Rhodes - Last Filed: 12/21/16 10:06>
--- NOTE | 2016-12-21 08:12 | PDOC ---
History of Present Illness - General Chief Complaint: Shortness of Breath Stated Complaint: FLUID OVERLOAD, CHEST TIGHTNESS Time Seen by Provider: 12/21/16 07:19 - History of Present Illness Initial Comments: 26 year old female with ESRD (MWF dialysis), HTN, DVT, PE (on coumadin), myosistis, osteomyelitis (right 5th digit surgery) and Diabetes (insulin dependent) presenting with shortness of breath, facial swelling, and bilateral LE edema for the past few days. She went to her scheduled dialysis session on Wednesday but states that she was having subjective signs of fluid overload prior to that. She did have an episode of chest tightness earlier today but denies chest pain or palpitations. She admits to very poor dietary compliance and drinks a lot of sugary fluid. She also has multiple presentations to this ED for very similar symptoms. Does admit to a little bit of nausea. Denies fevers, chills, vomiting, diarrhea, or any new symptoms. She does not make urine and has access on the left on dialysis for the past 6 years. 12/21/16 08:06 Past History - Past Medical History Allergies/Adverse Reactions: Allergies Allergy/AdvReac Type Severity Reaction Status Date / Time No Known Drug Allergies Allergy Verified 12/21/16 07:06 Home Medications: Ambulatory Orders Gabapentin 100 mg PO TID 03/11/16 Clonidine HCl [Catapres -] 0.3 mg PO TID #90 tablet 07/14/16 Hydralazine HCl [Apresoline -] 25 mg PO TID #60 tablet 07/14/16 Labetalol HCl [Normodyne -] 200 mg PO TID #90 tablet 07/14/16 Sevelamer Carbonate [Renvela -] 1,600 mg PO TIDCM #60 tab 07/14/16 Cinacalcet HCl [Sensipar] 60 mg PO DAILY 08/05/16 Insulin (Levemir) [Levemir Flexpen -] 10 units SQ BID #5 pen 08/11/16 Oxycodone HCl/Acetaminophen [Percocet 5-325 mg Tablet] 1 tab PO Q6H PRN #60 tablet MDD 4 08/11/16 Nifedipine [Procardia Xl] 30 mg PO BID #0 tab 08/27/16 Acetaminophen [Tylenol .Regular Strength -] 325 mg PO Q6H PRN #0 tablet Diphenhydramine [Benadryl -] 75 mg PO HS 12/21/16 Insulin Lispro [Humalog Kwikpen U-100] 0 unit SQ TID 12/21/16 Losartan Potassium [Cozaar -] 100 mg PO DAILY 12/21/16 Anemia: Yes Asthma: No Cancer: No Cardiac Disorders: No CVA: No COPD: No CHF: No Diabetes: Yes (15 yrs Insulin dependent) Dialysis: Yes (M/W/F) Disorders: Yes [facility] HTN: Yes Hypercholesterolemia: No Kidney Stones: (ESRD, Dialysis Mon, W, F, Left arm Fistula) Suicide Attempt (Hx): No Seizures: Yes (Several yrs ago, no medication) Thyroid Disease: No - Surgical History Abdominal Surgery: No Cardiac Surgery: Yes (myxoma removed 2013) Cholecystectomy: Yes Lung Surgery: No Neurologic Surgery: No Orthopedic Surgery: Yes - Immunization History Immunization Up to Date: Yes - Suicide/Smoking/Psychosocial Hx Anxiety: No Suicidal Ideation: No Smoking Status: No Smoking History: Never smoked Have you smoked in the past 12 months: No Number of Cigarettes Smoked Daily: 10 Information on smoking cessation initiated: No Hx Alcohol Use: No Drug/Substance Use Hx: No Substance Use Type: None Hx Substance Use Treatment: No Review of Systems - Review of Systems Constitutional: No: Chills, Diaphoresis, Fever, Loss of Appetite, Weight Stable Respiratory: Yes: Shortness of Breath. No: Cough, Orthopnea Cardiac (ROS): Yes: Chest Pain. No: Irregular Heart Rate, Lightheadedness, Palpitations, Chest Tightness ABD/GI: No: Vomiting *Physical Exam - Vital Signs Last Vital Signs Temp Pulse Resp BP Pulse Ox 97.9 F 95 H 18 150/110 91 L 12/21/16 07:04 12/21/16 07:04 12/21/16 07:04 12/21/16 07:04 12/21/16 07:04 - Physical Exam General Appearance: Yes: Nourished, Appropriately Dressed. No: Apparent Distress HEENT: positive: EOMI, VI. negative: Normal ENT Inspection (Periobital edema and bilateral bucal swelling) Neck: positive: Trachea midline, Normal Thyroid, Supple. negative: Tender, Rigid Respiratory/Chest: positive: Lungs Clear, Normal Breath Sounds. negative: Chest Tender, Respiratory Distress, Accessory Muscle Use Cardiovascular: positive: Regular Rhythm, Regular Rate, S1, S2, Edema (3+ pitting edema to the thighs bilaterally, perioribatal and facial edema.), Murmur , Gallop/S3 Gastrointestinal/Abdominal: positive: Normal Bowel Sounds, Flat, Soft. negative : Tender Musculoskeletal: negative: Normal Inspection (Swelling per above) Extremity: positive: Normal Capillary Refill, Pedal Edema, Swelling Integumentary: positive: Normal Color, Dry, Warm Neurologic: positive: Fully Oriented, Alert, Normal Mood/Affect ED Treatment Course - LABORATORY CBC & Chemistry Diagram: 12/21/16 08:42 12/21/16 08:05 - RADIOLOGY Radiology Studies Ordered: Category Date Time Status CXRPORT [CHEST X-RAY PORTABLE*] [RAD] Stat Radiology 12/21/16 07:34 Ordered Medical Decision Making - Medical Decision Making 26 year old female with signs of volume overload with SOB but afebrile so this is most likely 2/2 dietary non-compliance. Will get CBC, CMP, Mag, Pos, CXR, serum preg, and cardiac profile. 12/21/16 09:43 Labs indicating HONKH (gluc 930, osm 340, Na 123, small pos acetone). Other electrolytes WNL and VSS with negative cardiac enzymes. Alk pos also elevated most likely indicating acute worsening of her chronic disease state. Will admit under Dr. Acuña to the ICU with Dr. King as the consulting digital analytics manager. Given 8 units regular insulin. 12/21/16 10:09 12/21/16 10:11 *DC/Admit/Observation/Transfer Diagnosis at time of Disposition: Diabetic hyperosmolar non-ketotic state, ESRD (end stage renal disease) on dialysis - Discharge Dispostion Condition at time of disposition: Stable Admit: Yes
[2016-12-21 08:30] LABS: INR 1.25 (0.82-1.09); PROTHROMBIN TIME (PATIENT) 13.8 SEC (9.98-11.88)
[2016-12-21 08:56] LABS: ALBUMIN 2.5 g/dl (3.4-5.0); ANION GAP 15 (8-16); BILIRUBIN,TOTAL 0.8 mg/dL (0.2-1.0); CALCIUM 7.1 mg/dL (8.5-10.1); CO2 24 mmol/L (21-32); CREATININE 4.9 mg/dL (0.55-1.02); MAGNESIUM 1.8 mg/dL (1.8-2.4); PHOSPHOROUS 4.3 mg/dL (2.5-4.9); SGOT/AST 274 U/L (15-37); SGPT/ALT 96 U/L (12-78); TOT PROT 7.1 g/dl (6.4-8.2)
[2016-12-21 09:02] LABS: GLUCOSE,RANDOM 930 mg/dL (74-106)
[2016-12-21 09:07] LABS: CPK 100 IU/L (26-192); TROPONIN I < 0.02 ng/ml (0.00-0.05)
[2016-12-21 09:10] LABS: ALK PHOS 1982 U/L (45-117)
[2016-12-21 09:24] LABS: BASOPHIL 0.6 % (0-2.0); EOSINOPHIL 0.1 % (0-4.5); MCH 26.4 pg (25.7-33.7); MCHC 29.1 g/dl (32.0-36.0); MEAN CELL VOLUME 90.8 fl (80-96); NEUTROPHILS 86.4 % (42.8-82.8); PLATELET COUNT 250 K/MM3 (134-434); RDW 18.8 % (11.6-15.6); WHITE BLOOD COUNT 6.1 K/mm3 (4.0-10.0)
[2016-12-21] MEDS ORDERED: INSULIN REGULAR HUMAN 100 UNITS/ML *VIAL IVPUSH ONE (09:34)
--- NOTE | 2016-12-21 11:10 | HP ---
Admitting History and Physical - Primary Care Physician PCP: Valentine Acuña - Admission Chief Complaint: not feeling well/ sob History of Present Illness: The patient is a 26 year old female-- well known to me from previous admissions with a significant past medical history of severe anemia-- requiring multiple transfusions last admission - 10/19, s/p egd uncontrolled insulin-dependent diabetes, ESRD (HD on dialysis M, W, F), hypertension, DVT and pulmonary embolism, myositis, osteomyelitis who presents to the emergency department with worsening dyspnea. Patient reports increasing dyspnea on exertion with associated chest tightness and lower extremity edema. Patient also reports elevated blood glucose levels. Patient states she feels that she may be in DKA. Patient reports increasing generalized weakness and presents to the ED for further evaluation. Patients last HD was on Wednesday12/18/2016. She denies headache or dizziness. She denies fever, chills, abdominal pain, nausea, vomit, diarrhea or constipation. She denies dysuria, frequency, urgency or hematuria. Pt found in hyperosmolar state. pt admiited to icu. bp also very elevated pt to be scheduled for emergent dialysis-- insulin drip to be started-- not started in er. Discussed Allergies: NKA Past surgical history: myxoma removed 2013, Cholecystectomy, Social history: Former smoker History Source: Patient, Medical Record Limitations to Obtaining History: No Limitations - Past Medical History Cardiovascular: Yes: CHF, HTN, Other (thrombus in heart per echo 11/2013; ? subclavian vein thromboses s/p dialysis catheters in the past) Pulmonary: Yes: Pulmonary Embolus Renal/: Yes: Renal Failure, Hemodialysis ...LMP: 08/17/14 Heme/Onc: Yes: Other (atrial myxoma s/p surgical removal. Also has a history of PE ) Infectious Disease: Yes: MRSA (history of bacteremia, recent mrsa foot abscess) Endocrine: Yes: Diabetes Mellitus (type 1 on insulin pump) - Past Surgical History Past Surgical History: Yes: AV Fistula/Graft (Right arm) - Smoking History Smoking history: Never smoked Have you smoked in the past 12 months: No Aproximately how many cigarettes per day: 10 - Alcohol/Substance Use Hx Alcohol Use: No History of Substance Use: reports: None - Social History ADL: Independent Occupation: unemployed History of Recent Travel: No Home Medications - Allergies Allergies/Adverse Reactions: Allergies Allergy/AdvReac Type Severity Reaction Status Date / Time No Known Drug Allergies Allergy Verified 12/21/16 07:06 - Home Medications Home Medications: Ambulatory Orders Gabapentin 100 mg PO TID 03/11/16 Clonidine HCl [Catapres -] 0.3 mg PO TID #90 tablet 07/14/16 Hydralazine HCl [Apresoline -] 25 mg PO TID #60 tablet 07/14/16 Labetalol HCl [Normodyne -] 200 mg PO TID #90 tablet 07/14/16 Sevelamer Carbonate [Renvela -] 1,600 mg PO TIDCM #60 tab 07/14/16 Cinacalcet HCl [Sensipar] 60 mg PO DAILY 08/05/16 Insulin (Levemir) [Levemir Flexpen -] 10 units SQ BID #5 pen 08/11/16 Oxycodone HCl/Acetaminophen [Percocet 5-325 mg Tablet] 1 tab PO Q6H PRN #60 tablet MDD 4 08/11/16 Nifedipine [Procardia Xl] 30 mg PO BID #0 tab 08/27/16 Acetaminophen [Tylenol .Regular Strength -] 325 mg PO Q6H PRN #0 tablet Diphenhydramine [Benadryl -] 75 mg PO HS 12/21/16 Insulin Lispro [Humalog Kwikpen U-100] 0 unit SQ TID 12/21/16 Losartan Potassium [Cozaar -] 100 mg PO DAILY 12/21/16 Family Disease History - Family Disease History Family Disease History: Diabetes: Grandparent (HTN), Heart Disease: Grandparent , Other: Father (unknown), Mother (HTN) Review of Systems - Review of Systems Constitutional: reports: Loss of Appetite, Weakness Eyes: reports: Blurred Vision Neck: reports: No Symptoms Cardiovascular: reports: Shortness of Breath Respiratory: reports: SOB Gastrointestinal: reports: No Symptoms Genitourinary: reports: No Symptoms Neurological: reports: No Symptoms Endocrine: reports: Increased Thirst Psychiatric: reports: No Symptoms Physical Examination Vital Signs: Vital Signs Temperature 97.9 F 12/21/16 07:04 Pulse Rate 95 H 12/21/16 07:04 Respiratory Rate 18 12/21/16 07:04 Blood Pressure 150/110 12/21/16 07:04 O2 Sat by Pulse Oximetry (%) 91 L 12/21/16 07:04 Constitutional: Yes: No Distress, Calm Eyes: Yes: Conjunctiva Clear HENT: Yes: WNL Neck: Yes: Supple, Trachea Midline Cardiovascular: Yes: Regular Rate and Rhythm Respiratory: Yes: Diminished Gastrointestinal: Yes: Soft Edema: LLE: 1+, RLE: 1+ Neurological: Yes: Alert Psychiatric: Yes: Alert Imaging - Results Chest X-ray: Report Reviewed Problem List - Problems (1) Diabetic hyperosmolar non-ketotic state Code(s): E11.00 - TYPE 2 DIAB W HYPROSM W/O NONKET HYPRGLY-HYPROS COMA ([facility]) (2) ESRD (end stage renal disease) on dialysis Code(s): N18.6 - END STAGE RENAL DISEASE Z99.2 - DEPENDENCE ON RENAL DIALYSIS (3) Anemia Code(s): D64.9 - ANEMIA, UNSPECIFIED Qualifiers: Folate deficiency anemia type: dietary (4) Diabetes mellitus, insulin dependent (IDDM), uncontrolled Code(s): E10.65 - TYPE 1 DIABETES MELLITUS WITH HYPERGLYCEMIA Qualifiers: Diabetes mellitus complication status: with unspecified complications Qualified Code(s): E10.8 - Type 1 diabetes mellitus with unspecified complications; E10.65 - Type 1 diabetes mellitus with hyperglycemia (5) History of pulmonary embolus (PE) Code(s): Z86.711 - PERSONAL HISTORY OF PULMONARY EMBOLISM (6) Swelling of right lower extremity Code(s): M79.89 - OTHER SPECIFIED SOFT TISSUE DISORDERS Assessment/Plan Admit to icu insulin drip monitor bgm bp meds-- monitor dialysis renal/ endo consults meds reviewed blood culture condition critical. discussed with icu attending/ resident team. will follow.
[2016-12-21] MEDS ORDERED: INSULIN REGULAR 100 UNITS in SODIUM CHLORIDE 99 ML IVPB SCH (11:15)
[2016-12-21] MEDS ORDERED: HEMOQUE TEST 1 EACH EACH ONE (11:19)
[2016-12-21] MEDS ORDERED: INSULIN REGULAR HUMAN 100 UNITS/ML *VIAL ONE (11:29)
[2016-12-21] MEDS ORDERED: HEPARIN NA (PORCINE) 5,000 UNITS/ML 1ML VIAL IVPUSH ONE (11:47)
[2016-12-21] MEDS ORDERED: oxyCODONE HCL 5 MG TABLET PO PRN (12:03)
[2016-12-21] MEDS ORDERED: ACETAMINOPHEN 325 MG TABLET (FP) PO PRN (12:03)
[2016-12-21] MEDS: LABETALOL HCL 200 MG TABLET (FP) PO SCH ×2 (12:13→22:06)
[2016-12-21] MEDS: SEVELAMER CARBONATE 800 MG TAB (FP) PO SCH ×2 (13:01→16:58)
[2016-12-21] MEDS: hydrALAZINE HCL 25 MG TABLET (FP) PO SCH ×2 (13:06→22:05)
[2016-12-21] MEDS: cloNIDine HCL 0.1 MG TABLET PO SCH ×2 (13:06→22:06)
[2016-12-21] MEDS: GABAPENTIN 100 MG CAPSULE (FP) PO SCH ×2 (13:07→22:05)
[2016-12-21] MEDS: ACETAMINOPHEN 325 MG TABLET (FP) PO PRN ×2 (13:08→23:56)
[2016-12-21] MEDS: oxyCODONE HCL 5 MG TABLET PO PRN ×2 (13:14→23:56)
--- NOTE | 2016-12-21 13:14 | CON.NEP ---
Consult Consult Specialty:: Nephrology Referred by:: Domenico Reason for Consultation:: ESRD on HD, Hypervolemia - History of Present Illness Chief Complaint: SOB History of Present Illness: This is a 26 year old woman with PMhx of ESRD on HD ([facility], [facility] [employer] Dr. Wise), DM Type 1, Hypertension, Hx of DVT who presents with complaints of SOB and Volume overload and Hyperglycemia. Pt last had dialysis on Wednesday. Reports being about 6kg about her dry weight. Denies any dietiary indiscretion. No Chest pain, Abd pain, N/V/D, fever or chills. Does not make any urine. - History Source History Provided By: Patient Limitations to Obtaining History: No Limitations - Past Medical History Cardio/Vascular: Yes: CHF, HTN, Other (thrombus in heart per echo 11/2013; ? subclavian vein thromboses s/p dialysis catheters in the past) Pulmonary: Yes: Pulmonary Embolus Renal/: Yes: Renal Failure, Hemodialysis ...LMP: 08/17/14 Infectious Disease: Yes: MRSA (history of bacteremia, recent mrsa foot abscess) Endocrine: Yes: Diabetes Mellitus (type 1 on insulin pump) Additional Medical History: DVT, PE on coumadin - Past Surgical History Past Surgical History: Yes: AV Fistula/Graft (Right arm) - Alcohol/Substance Use Hx Alcohol Use: No History of Substance Use: reports: None - Smoking History Smoking history: Never smoked Have you smoked in the past 12 months: No Aproximately how many cigarettes per day: 10 - Social History Usual Living Arrangement: With Parent ADL: Independent Occupation: unemployed History of Recent Travel: No Home Medications - Allergies Allergies/Adverse Reactions: Allergies Allergy/AdvReac Type Severity Reaction Status Date / Time No Known Drug Allergies Allergy Verified 12/21/16 07:06 - Home Medications Home Medications: Ambulatory Orders Gabapentin 100 mg PO TID 03/11/16 Clonidine HCl [Catapres -] 0.3 mg PO TID #90 tablet 07/14/16 Hydralazine HCl [Apresoline -] 25 mg PO TID #60 tablet 07/14/16 Labetalol HCl [Normodyne -] 200 mg PO TID #90 tablet 07/14/16 Sevelamer Carbonate [Renvela -] 1,600 mg PO TIDCM #60 tab 07/14/16 Cinacalcet HCl [Sensipar] 60 mg PO DAILY 08/05/16 Insulin (Levemir) [Levemir Flexpen -] 10 units SQ BID #5 pen 08/11/16 Oxycodone HCl/Acetaminophen [Percocet 5-325 mg Tablet] 1 tab PO Q6H PRN #60 tablet MDD 4 08/11/16 Nifedipine [Procardia Xl] 30 mg PO BID #0 tab 08/27/16 Acetaminophen [Tylenol .Regular Strength -] 325 mg PO Q6H PRN #0 tablet Diphenhydramine [Benadryl -] 75 mg PO HS 12/21/16 Insulin Lispro [Humalog Kwikpen U-100] 0 unit SQ TID 12/21/16 Losartan Potassium [Cozaar -] 100 mg PO DAILY 12/21/16 Family Disease History - Family Disease History Family Disease History: Diabetes: Grandparent (HTN), Heart Disease: Grandparent , Other: Father (unknown), Mother (HTN) Review of Systems - Review of Systems Constitutional: reports: No Symptoms Eyes: reports: No Symptoms HENT: reports: No Symptoms Neck: reports: No Symptoms Cardiovascular: reports: Edema, Shortness of Breath. denies: Chest Pain, Palpitations Respiratory: reports: Exercise Intolerance, Orthopnea, SOB, SOB on Exertion. denies: Cough, Wheezing Gastrointestinal: reports: No Symptoms Genitourinary: reports: No Symptoms Musculoskeletal: reports: No Symptoms Integumentary: reports: No Symptoms Neurological: reports: No Symptoms Endocrine: reports: No Symptoms Nephrology Consult - Height Height: 5 ft 6 in - Weight Weight: 178 lb 9.191 oz - BMI Body Mass Index (BMI): 28.8 - Lab Results Anion Gap: Anion Gap Anion Gap 15 (8-16) 12/21/16 08:05 - Imaging Chest X-ray: Report Reviewed - Physical Examination Vital Signs: Vital Signs Temperature 98.1 F 12/21/16 12:50 Pulse Rate 83 12/21/16 12:40 Respiratory Rate 18 12/21/16 12:40 Blood Pressure 217/117 12/21/16 12:40 O2 Sat by Pulse Oximetry (%) 100 12/21/16 11:47 Constitutional: Yes: Well Nourished, No Distress Eyes: Yes: Conjunctiva Clear HENT: Yes: Atraumatic Neck: Yes: Supple Cardiovascular: Yes: Regular Rate and Rhythm, S1, S2. No: Murmur, Rub Respiratory: Yes: Diminished, SOB. No: Regular, Rales, Rhonchi Gastrointestinal: Yes: Normal Bowel Sounds, Soft Access for Hemodialysis: AV Fistula Extremities: No: Cold, Cool, Cyanosis Edema: Yes Edema: LUE: 1+, RUE: 1+, LLE: 2+, RLE: 2+ Neurological: Yes: Alert, Oriented Problem List - Problems (1) Diabetic hyperosmolar non-ketotic state Code(s): E11.00 - TYPE 2 DIAB W HYPROSM W/O NONKET HYPRGLY-HYPROS COMA ([facility]) (2) ESRD (end stage renal disease) on dialysis Code(s): N18.6 - END STAGE RENAL DISEASE Z99.2 - DEPENDENCE ON RENAL DIALYSIS (3) Diabetes mellitus, insulin dependent (IDDM), uncontrolled Code(s): E10.65 - TYPE 1 DIABETES MELLITUS WITH HYPERGLYCEMIA Qualifiers: Diabetes mellitus complication status: with unspecified complications Qualified Code(s): E10.8 - Type 1 diabetes mellitus with unspecified complications; E10.65 - Type 1 diabetes mellitus with hyperglycemia (4) Fluid overload Code(s): E87.70 - FLUID OVERLOAD, UNSPECIFIED Qualifiers: Hypervolemia type: unspecified Qualified Code(s): E87.70 - Fluid overload, unspecified Assessment/Plan 26 year old woman with PMhx of ESRD on HD ([facility], [facility] [employer] [facility] Dr. Wise), DM Type 1, Hypertension, Hx of DVT who presents with complaints of SOB and Volume overload and Hyperglycemia. #ESRD on HD with hypervolemia Etiology appears to be non-compliane with dietiary salt and fluid restrictions will plan urgent HD today with 3.5kg UF goal Tx time is 4 hours with 2k bath via AVF Dose all meds for intermittent HD will plan isolated UF tomorrow for further UF #Hyperglycemia w/o ketosis continue insulin gtt ICU monitoring #Hypertension continue home BP meds goal BP < 140/90 #Pseudohypoatremia Corrected Na is 142 Thank you Will follow Nathan Vo DO
[2016-12-21 13:15] VITALS: BMI 28.8
--- NOTE | 2016-12-21 13:18 | PN ---
Teaching Attending Note Name of Resident: Elvira Sullivan ATTENDING PHYSICIAN STATEMENT I saw and evaluated the patient. I reviewed the resident's note and discussed the case with the resident. I agree with the resident's findings and plan as documented. SUBJECTIVE: 26 F, well known to me from multiple previous admissions. IDDM, ESRD on HD (M, W, F), hypertension, DVT and pulmonary embolism, myositis, and osteomyelitis. Admitted via the ER due to increasing dyspnea on exertion and associated chest tightness, and lower extremity edema. Noted blood sugar > 900. No travel history or sick contacts. Now in the ICU. On acute HD. Intake & Output 12/18/16 12/19/16 12/20/16 12/21/16 23:59 23:59 23:59 23:59 Weight 178 lb 9.191 oz Last Vital Signs Temp Pulse Resp BP Pulse Ox 98.1 F 83 18 217/117 100 12/21/16 12:50 12/21/16 12:40 12/21/16 12:40 12/21/16 12:40 12/21/16 11:47 Active Medications Acetaminophen (Tylenol -) 325 mg PO Q6H PRN PRN Reason: PAIN Last Admin: 12/21/16 13:08 Dose: 325 mg Acetaminophen (Tylenol -) 325 mg PO Q6H PRN PRN Reason: PAIN LEVEL 6-10 Chlorhexidine Gluconate (Hibiclens For Decolonization -) 1 applic TP HS [facility] Cinacalcet (Sensipar -) 60 mg PO DAILY [facility]A [facility] Clonidine (Catapres -) 0.3 mg PO TID [facility] Last Admin: 12/21/16 13:06 Dose: 0.3 mg Gabapentin (Neurontin -) 100 mg PO TID [facility] Last Admin: 12/21/16 13:07 Dose: 100 mg Heparin Sodium (Porcine) (Heparin -) 5,000 unit SQ BID [facility] Hydralazine HCl (Apresoline -) 25 mg PO TID [facility] Last Admin: 12/21/16 13:06 Dose: 25 mg Insulin Human Regular 100 (units/ Sodium Chloride) 100 mls @ 6.57 mls/hr IVPB TITR ROSA MARIA; 0.1 UNITS/KG/HR PRN Reason: Protocol Last Admin: 12/21/16 11:40 Dose: 6.57 mls/hr Labetalol HCl (Normodyne -) 200 mg PO TID [facility] Last Admin: 12/21/16 12:13 Dose: 200 mg Losartan Potassium (Cozaar -) 100 mg PO DAILY [facility] Mupirocin (Bactroban Ointment (For Decolonization) -) 1 applic NS BID [facility] Stop: 12/26/16 21:59 Nifedipine (Procardia Xl -) 30 mg PO BID [facility] Oxycodone HCl (Roxicodone -) 10 mg PO Q6H PRN PRN Reason: PAIN LEVEL 6-10 Last Admin: 12/21/16 13:14 Dose: 10 mg Sevelamer Carbonate (Renvela -) 1,600 mg PO TIDCM [facility] Last Admin: 12/21/16 13:01 Dose: 1,600 mg Constitutional: Yes: Awake and alert, NAD Eyes: Yes: Conjunctiva Clear HENT: Yes: WNL Neck: Yes: Supple, Trachea Midline Cardiovascular: Yes: Regular Rate and Rhythm Respiratory: Yes: Diminished, rales Gastrointestinal: Yes: Soft Edema: LLE: 1+, RLE: 1+ Neurological: Yes: Alert Psychiatric: Yes: Alert Laboratory Results - last 24 hr 12/21/16 12/21/16 12/21/16 08:05 08:05 08:05 WBC Cancelled Corrected WBC (auto) Cancelled RBC Cancelled Hgb Cancelled Hct Cancelled MCV Cancelled MCH Cancelled MCHC Cancelled RDW Cancelled Plt Count Cancelled MPV Cancelled Neutrophils % Cancelled Lymphocytes % Cancelled Monocytes % Cancelled Eosinophils % Cancelled Basophils % Cancelled Platelet Estimate Cancelled Platelet Comment Cancelled RBC Morphology Cancelled PT with INR 13.80 H INR 1.25 H Sodium 126 L Potassium 4.6 Chloride 87 L Carbon Dioxide 24 Anion Gap 15 BUN 48 H Creatinine 4.9 H Creat Clearance w eGFR 10.63 POC Glucometer Random Glucose 930 H* D Serum Osmolality Calcium 7.1 L Phosphorus 4.3 Magnesium 1.8 Total Bilirubin 0.8 D AST 274 H D ALT 96 H D Alkaline Phosphatase 1982 H D Creatine Kinase 100 Troponin I < 0.02 Total Protein 7.1 Albumin 2.5 L Serum , Qual Acetone, Qual 12/21/16 12/21/16 12/21/16 08:05 08:09 08:13 WBC Corrected WBC (auto) RBC Hgb Hct MCV MCH MCHC RDW Plt Count MPV Neutrophils % Lymphocytes % Monocytes % Eosinophils % Basophils % Platelet Estimate Platelet Comment RBC Morphology PT with INR INR Sodium Potassium Chloride Carbon Dioxide Anion Gap BUN Creatinine Creat Clearance w eGFR POC Glucometer > 400 Random Glucose Serum Osmolality Calcium Phosphorus Magnesium Total Bilirubin AST ALT Alkaline Phosphatase Creatine Kinase Troponin I Total Protein Albumin Serum , Qual Negative Acetone, Qual Positive small 1+ H 12/21/16 12/21/16 08:42 09:02 WBC 6.1 D Corrected WBC (auto) RBC 4.18 D Hgb 11.0 D Hct 37.9 D MCV 90.8 MCH 26.4 MCHC 29.1 L RDW 18.8 H Plt Count 250 D MPV 10.0 D Neutrophils % 86.4 H Lymphocytes % 5.5 L D Monocytes % 7.4 Eosinophils % 0.1 D Basophils % 0.6 Platelet Estimate Platelet Comment RBC Morphology PT with INR INR Sodium Potassium Chloride Carbon Dioxide Anion Gap BUN Creatinine Creat Clearance w eGFR POC Glucometer Random Glucose Serum Osmolality 341 H Calcium Phosphorus Magnesium Total Bilirubin AST ALT Alkaline Phosphatase Creatine Kinase Troponin I Total Protein Albumin Serum , Qual Acetone, Qual Problem List - Problems (1) Diabetic hyperosmolar non-ketotic state Code(s): E11.00 - TYPE 2 DIAB W HYPROSM W/O NONKET HYPRGLY-HYPROS COMA ([facility]) (2) ESRD (end stage renal disease) on dialysis Code(s): N18.6 - END STAGE RENAL DISEASE Z99.2 - DEPENDENCE ON RENAL DIALYSIS (3) Anemia Code(s): D64.9 - ANEMIA, UNSPECIFIED Qualifiers: Folate deficiency anemia type: dietary (4) Diabetes mellitus, insulin dependent (IDDM), uncontrolled Code(s): E10.65 - TYPE 1 DIABETES MELLITUS WITH HYPERGLYCEMIA Qualifiers: Diabetes mellitus complication status: with unspecified complications Qualified Code(s): E10.8 - Type 1 diabetes mellitus with unspecified complications; E10.65 - Type 1 diabetes mellitus with hyperglycemia (5) History of pulmonary embolus (PE) Code(s): Z86.711 - PERSONAL HISTORY OF PULMONARY EMBOLISM (6) Swelling of right lower extremity Code(s): M79.89 - OTHER SPECIFIED SOFT TISSUE DISORDERS Assessment/Plan HD Insulin drip O2 as needed Daily weights BGM Renal/ Endocrine consults have been called AC ICU monitoring Dr Ballesteros Critical care time spent in reviewing chart, evaluating patient and formulating plan - 35 minutes.
[2016-12-21 13:43] LABS: ANION GAP 21 (8-16); CALCIUM 7.1 mg/dL (8.5-10.1); CO2 20 mmol/L (21-32); CREATININE 5.2 mg/dL (0.55-1.02)
[2016-12-21 13:53] LABS: GLUCOSE,RANDOM 888 mg/dL (74-106)
--- NOTE | 2016-12-21 13:54 | EKG ---
Test Reason : Blood Pressure : / mmHG Vent. Rate : 094 BPM Atrial Rate : 094 BPM P-R Int : 190 ms QRS Dur : 076 ms QT Int : 396 ms P-R-T Axes : 046 -29 048 degrees QTc Int : 495 ms NORMAL SINUS RHYTHM POSSIBLE LEFT ATRIAL ENLARGEMENT INFERIOR INFARCT , AGE UNDETERMINED ANTEROLATERAL INFARCT (CITED ON OR BEFORE 19-AUG-2016) ABNORMAL ECG WHEN COMPARED WITH ECG OF 19-AUG-2016 18:09, VENT. RATE HAS INCREASED T WAVE VARIATION Confirmed by MARYANN PÉREZ MD ([id number]) on 12/21/2016 1:54:12 PM Referred By: Confirmed By:MARYANN PÉREZ MD
[2016-12-21] MEDS ORDERED: LOSARTAN POTASSIUM 50 MG TABLET (FP) PO ONE (13:59)
[2016-12-21] MEDS ORDERED: LABETALOL HCL 200 MG TABLET (FP) PO SCH (14:00)
[2016-12-21] MEDS ORDERED: PT OWN MED DRAWER 7, Y5N ONE (15:11)
[2016-12-21] MEDS: NIFEdipine E.R. 30 MG TABLET (FP) PO SCH ×2 (15:20→22:06)
--- NOTE | 2016-12-21 18:14 | CONSULT ---
Consult Consult Specialty:: critical care Referred by:: Dr. Valentine Acuña - History of Present Illness History of Present Illness: 26yo young woman with PMH of poorly controlled IDDM, ESRD (on HD MWF), severe anemia, HTN, DVT/PE, osteomyelitis who presented to the ED this morning with worsening dyspnea on exertion and edema, and found to be hyperglycemic (BGM >900 ) without ketosis. Patient last completed dialysis on 12/18/16. She presented to the ED this morning due to worsening dyspnea for the past several days and complaints of volume overload. She endorses increasing facial and lower extremity edema. Patient denies recent illness, sick contacts or travel. She states that she has not been compliant with medications and adhering to a low sugar diet. - Past Medical History Cardio/Vascular: Yes: CHF, HTN, Other (thrombus in heart per echo 11/2013; ? subclavian vein thromboses s/p dialysis catheters in the past) Pulmonary: Yes: Pulmonary Embolus Renal/: Yes: Renal Failure, Hemodialysis ...LMP: 08/17/14 Infectious Disease: Yes: MRSA (history of bacteremia, recent mrsa foot abscess) Endocrine: Yes: Diabetes Mellitus (type 1 on insulin pump) Additional Medical History: DVT, PE on coumadin - Past Surgical History Past Surgical History: Yes: AV Fistula/Graft (Right arm) - Alcohol/Substance Use Hx Alcohol Use: No History of Substance Use: reports: None - Smoking History Smoking history: Never smoked Have you smoked in the past 12 months: No Aproximately how many cigarettes per day: 10 - Social History Usual Living Arrangement: With Parent ADL: Independent Occupation: unemployed History of Recent Travel: No Home Medications - Allergies Allergies/Adverse Reactions: Allergies Allergy/AdvReac Type Severity Reaction Status Date / Time No Known Drug Allergies Allergy Verified 12/21/16 07:06 - Home Medications Home Medications: Ambulatory Orders Gabapentin 100 mg PO TID 03/11/16 Clonidine HCl [Catapres -] 0.3 mg PO TID #90 tablet 07/14/16 Hydralazine HCl [Apresoline -] 25 mg PO TID #60 tablet 07/14/16 Labetalol HCl [Normodyne -] 200 mg PO TID #90 tablet 07/14/16 Sevelamer Carbonate [Renvela -] 1,600 mg PO TIDCM #60 tab 07/14/16 Cinacalcet HCl [Sensipar] 60 mg PO DAILY 08/05/16 Insulin (Levemir) [Levemir Flexpen -] 10 units SQ BID #5 pen 08/11/16 Oxycodone HCl/Acetaminophen [Percocet 5-325 mg Tablet] 1 tab PO Q6H PRN #60 tablet MDD 4 08/11/16 Nifedipine [Procardia Xl] 30 mg PO BID #0 tab 08/27/16 Acetaminophen [Tylenol .Regular Strength -] 325 mg PO Q6H PRN #0 tablet Diphenhydramine [Benadryl -] 75 mg PO HS 12/21/16 Insulin Lispro [Humalog Kwikpen U-100] 0 unit SQ TID 12/21/16 Losartan Potassium [Cozaar -] 100 mg PO DAILY 12/21/16 Family Disease History - Family Disease History Family Disease History: Diabetes: Grandparent (HTN), Heart Disease: Grandparent , Other: Father (unknown), Mother (HTN) Physical Exam Vital Signs: Vital Signs Temperature 98.1 F 12/21/16 12:50 Pulse Rate 87 12/21/16 17:00 Respiratory Rate 18 12/21/16 17:00 Blood Pressure 205/118 12/21/16 17:00 O2 Sat by Pulse Oximetry (%) 100 12/21/16 11:47 Constitutional: Yes: Well Nourished, No Distress, Calm Eyes: Yes: Conjunctiva Clear. No: Sclera Icterus Cardiovascular: Yes: Regular Rate and Rhythm. No: Gallop, Murmur Respiratory: Yes: Diminished (at bases bilaterally), Rales (bibasilar) Gastrointestinal: Yes: Soft. No: Distention, Tenderness Edema: LUE: 1+, RUE: 1+, LLE: 2+, RLE: 2+ Peripheral Pulses WNL: Yes Labs: CBC, BMP 12/21/16 08:42 INR, PTT INR 1.25 (0.82-1.09) H 12/21/16 08:05 Hepatic Panel Total Bilirubin 0.8 mg/dL (0.2-1.0) D 12/21/16 08:05 AST 274 U/L (15-37) H D 12/21/16 08:05 ALT 96 U/L (12-78) H D 12/21/16 08:05 Alkaline Phosphatase 1982 U/L (45-117) H D 12/21/16 08:05 Albumin 2.5 g/dl (3.4-5.0) L 12/21/16 08:05 12/21/16 08:09 Acetone, Qual Positive small 1+ H Microbiology: Blood Cultures pending Imaging - Results Chest X-ray: Report Reviewed, Image Reviewed (bibasilar atelectasis, enlarged cardiomediastinum) Assessment/Plan 26yo woman with poorly controlled IDDM and ESRD on HD M/W/ who presents with hyperglycemia without ketosis and volume overload likely 2/2 to medication/diet non-compliance. Infectious etiology unlikely given lack of fever and leukocytosis, however blood cultures pending to r/o bacteremia. Patient anuric. #Diabetic hyperosmolar non-ketotic state -Endocrine consulted -Insulin gtt -BGM q1h -f/u blood cultures #ESRD -Urgent HD today -Neprhology consulted -Daily weights (pt anuric) #HTN -Continue home PO medications: Nifedipine ER 30mg PO BID Losartan 100mg PO daily Labetalol 200mg PO TID Clonidine 0.3mg PO TID Hydralazine 25mg PO TID #F/E/N -No IVF -Monitory lytes -NPO until BGM<250 #PPX -DVT - b/l SCDs, Heparin 5000U SQ BID, early ambulation as tolerated -GI ppx not indicated Dispo: Continue ICU monitoring d/w attending Dr. Lesli Sullivan MD PGY-1 Visit type - Emergency Visit Emergency Visit: No - New Patient This patient is new to me today: Yes Date on this admission: 12/21/16 - Critical Care Critical Care patient: Yes Total Critical Care Time (in minutes): 35 Critical Care Statement: The care of this patient involved high complexity decision making to prevent further life threatening deterioration of the patient 's condition and/or to evaluate & treat vital organ system(s) failure or risk of failure.
[2016-12-21 18:47] LABS: ANION GAP 17 (8-16); CO2 27 mmol/L (21-32); CREATININE 2.4 mg/dL (0.55-1.02); GLUCOSE,RANDOM 265 mg/dL (74-106)
[2016-12-21] MEDS ORDERED: POTASSIUM CHLORIDE 20 MEQ PREMIX IVPB 100 ML IVPB ONE (19:13)
[2016-12-21] MEDS ORDERED: POTASSIUM CHLORIDE TABS 20 MEQ TABLET.ER (FP) PO ONE (19:16)
[2016-12-21] MEDS: RANITIDINE HCL 150 MG TABLET (FP) PO SCH (19:41)
--- NOTE | 2016-12-21 20:30 | PN ---
Progress Note (short form) - Note Progress Note: The pt glucose went down to around 150 at 7 PM. I decreased insulin drip to 3 u/ hr. After discussing with Emergency Management Coordinator we stopped her insulin drip. She will start Levemir 10 u BID tomorrow and today Novolog for coverage, BGM Q4H. Problem List - Problems (1) ESRD (end stage renal disease) on dialysis Code(s): N18.6 - END STAGE RENAL DISEASE Z99.2 - DEPENDENCE ON RENAL DIALYSIS (2) DKA (diabetic ketoacidosis) Code(s): E13.10 - OTH DIABETES MELLITUS WITH KETOACIDOSIS WITHOUT COMA Qualifiers: Diabetes mellitus type: type 1 (3) Diabetes mellitus, insulin dependent (IDDM), uncontrolled Code(s): E10.65 - TYPE 1 DIABETES MELLITUS WITH HYPERGLYCEMIA Qualifiers: Diabetes mellitus complication status: with unspecified complications Qualified Code(s): E10.8 - Type 1 diabetes mellitus with unspecified complications; E10.65 - Type 1 diabetes mellitus with hyperglycemia
[2016-12-21] MEDS: INSULIN SLIDING SCALE (NOVOLOG) 1 VIAL SQ SCH (21:18)
[2016-12-21] MEDS ORDERED: NIFEdipine E.R. 30 MG TABLET (FP) PO SCH (22:00)
[2016-12-21] MEDS ORDERED: CHLORHEXIDINE GLUCONATE 4% CLEANSER FOR DECOLONIZATION TP SCH (22:00)
[2016-12-21] MEDS: HEPARIN NA (PORCINE) 5,000 UNITS/ML 1ML VIAL SQ SCH (22:06)
[2016-12-21] MEDS: MUPIROCIN 2% TOPICAL OINTMENT FOR DECOLONIZATION NS SCH (22:06)
[2016-12-21] MEDS ORDERED: MAG HYDROX/AL HYDROX/SIMETH 30 ML UNIT-DOSE CUP PO PRN (22:23)
[2016-12-21] MEDS ORDERED: PANTOPRAZOLE 20 MG TABLET (FP) PO ONE (22:25)
[2016-12-21 23:30] LABS: ALBUMIN 2.6 g/dl (3.4-5.0); BILIRUBIN,TOTAL 0.6 mg/dL (0.2-1.0); SGOT/AST 136 U/L (15-37); SGPT/ALT 84 U/L (12-78); TOT PROT 7.2 g/dl (6.4-8.2)
[2016-12-21 23:43] LABS: ALK PHOS 1897 U/L (45-117)
[2016-12-22 00:10] LABS: GLUCOSE,RANDOM 274 mg/dL (74-106)
[2016-12-22 00:11] LABS: ANION GAP 16 (8-16); CALCIUM 7.9 mg/dL (8.5-10.1); CO2 27 mmol/L (21-32); CREATININE 2.5 mg/dL (0.55-1.02)
--- NOTE | 2016-12-22 00:25 | CONSULT ---
Consult Consult Specialty:: endocrine Referred by:: dr.[email or web address] ford Reason for Consultation:: dka - History of Present Illness Chief Complaint: high sugars weakness,difficulty breathing History of Present Illness: 26 year old female with ESRD (MWF dialysis), HTN, DVT, PE (on coumadin), myosistis, osteomyelitis (right 5th digit surgery) and Diabetes (insulin dependent) presenting with shortness of breath, facial swelling, and bilateral LE edema for the past few days. She went to her scheduled dialysis session on Wednesday but states that she was having subjective signs of fluid overload prior to that. She did have an episode of chest tightness earlier today but denies chest pain or palpitations. She has frequent episode high sugar due to diet noncompliance,uses insulin injections with levemir and novolog sliding scale at home. - History Source History Provided By: Patient - Past Medical History Cardio/Vascular: Yes: CHF, HTN, Other (thrombus in heart per echo 11/2013; ? subclavian vein thromboses s/p dialysis catheters in the past) Pulmonary: Yes: Pulmonary Embolus Renal/: Yes: Renal Failure, Hemodialysis ...LMP: 08/17/14 Infectious Disease: Yes: MRSA (history of bacteremia, recent mrsa foot abscess) Endocrine: Yes: Diabetes Mellitus (type 1 on insulin pump) Additional Medical History: DVT, PE on coumadin - Past Surgical History Past Surgical History: Yes: AV Fistula/Graft (Right arm) - Alcohol/Substance Use Hx Alcohol Use: No History of Substance Use: reports: None - Smoking History Smoking history: Never smoked Have you smoked in the past 12 months: No Aproximately how many cigarettes per day: 10 - Social History Usual Living Arrangement: With Parent ADL: Independent Occupation: unemployed History of Recent Travel: No Home Medications - Allergies Allergies/Adverse Reactions: Allergies Allergy/AdvReac Type Severity Reaction Status Date / Time No Known Drug Allergies Allergy Verified 12/21/16 07:06 - Home Medications Home Medications: Ambulatory Orders Gabapentin 100 mg PO TID 03/11/16 Clonidine HCl [Catapres -] 0.3 mg PO TID #90 tablet 07/14/16 Hydralazine HCl [Apresoline -] 25 mg PO TID #60 tablet 07/14/16 Labetalol HCl [Normodyne -] 200 mg PO TID #90 tablet 07/14/16 Sevelamer Carbonate [Renvela -] 1,600 mg PO TIDCM #60 tab 07/14/16 Cinacalcet HCl [Sensipar] 60 mg PO DAILY 08/05/16 Insulin (Levemir) [Levemir Flexpen -] 10 units SQ BID #5 pen 08/11/16 Oxycodone HCl/Acetaminophen [Percocet 5-325 mg Tablet] 1 tab PO Q6H PRN #60 tablet MDD 4 08/11/16 Nifedipine [Procardia Xl] 30 mg PO BID #0 tab 08/27/16 Acetaminophen [Tylenol .Regular Strength -] 325 mg PO Q6H PRN #0 tablet Diphenhydramine [Benadryl -] 75 mg PO HS 12/21/16 Insulin Lispro [Humalog Kwikpen U-100] 0 unit SQ TID 12/21/16 Losartan Potassium [Cozaar -] 100 mg PO DAILY 12/21/16 Family Disease History - Family Disease History Family Disease History: Diabetes: Grandparent (HTN), Heart Disease: Grandparent , Other: Father (unknown), Mother (HTN) Review of Systems - Review of Systems Constitutional: reports: Lethargy, Weakness Eyes: reports: Blurred Vision HENT: reports: Difficult Swallowing, Throat Pain Neck: reports: Pain on Movement, Tenderness Cardiovascular: reports: Palpitations, Shortness of Breath Respiratory: reports: Exercise Intolerance, SOB, SOB on Exertion Gastrointestinal: reports: Constipation, Nausea Breasts: reports: No Symptoms Reported Musculoskeletal: reports: Extremity Pain, Muscle Pain, Muscle Cramps, Muscle Weakness Neurological: reports: Dizziness, Numbness, Unsteady Gait, Weakness Endocrine: reports: Unexplained Weight Gain Physical Exam Vital Signs: Vital Signs Temperature 99 F 12/21/16 19:52 Pulse Rate 88 12/21/16 22:00 Respiratory Rate 16 12/21/16 22:00 Blood Pressure 139/80 12/21/16 22:00 O2 Sat by Pulse Oximetry (%) 100 12/21/16 21:00 Constitutional: Yes: Anxious Eyes: Yes: EOM Intact HENT: Yes: Normocephalic Neck: Yes: Trachea Midline Cardiovascular: Yes: Tachycardia Respiratory: Yes: CTA Bilaterally Gastrointestinal: Yes: Normal Bowel Sounds ...Rectal Exam: Yes: Deferred Breast(s): Yes: WNL Extremities: Yes: Delayed Capillary Refill Labs: CBC, BMP 12/21/16 17:46 Problem List - Problems (1) Diabetic hyperosmolar non-ketotic state Code(s): E11.00 - TYPE 2 DIAB W HYPROSM W/O NONKET HYPRGLY-HYPROS COMA ([facility]) (2) ESRD (end stage renal disease) on dialysis Code(s): N18.6 - END STAGE RENAL DISEASE Z99.2 - DEPENDENCE ON RENAL DIALYSIS (3) Abdominal pain Code(s): R10.9 - UNSPECIFIED ABDOMINAL PAIN (4) Acute respiratory failure Code(s): J96.00 - ACUTE RESPIRATORY FAILURE, UNSP W HYPOXIA OR HYPERCAPNIA (5) DKA (diabetic ketoacidosis) Code(s): E13.10 - OTH DIABETES MELLITUS WITH KETOACIDOSIS WITHOUT COMA Qualifiers: Diabetes mellitus type: type 1 Assessment/Plan Current Active Problems Diabetic hyperosmolar non-ketotic state (Acute) Leukocytosis (Acute) ESRD (end stage renal disease) on dialysis (Chronic) hyperglycemia ag normal [facility] Abnormal Lab Results 12/21/16 12/21/16 12/21/16 08:05 08:05 08:09 MCHC RDW Neutrophils % Lymphocytes % PT with INR 13.80 H INR 1.25 H Sodium 126 L Potassium Chloride 87 L Carbon Dioxide Anion Gap BUN 48 H Creatinine 4.9 H Random Glucose 930 H* D Serum Osmolality Calcium 7.1 L AST 274 H D ALT 96 H D Alkaline Phosphatase 1982 H D Albumin 2.5 L Acetone, Qual Positive small 1+ H 12/21/16 12/21/16 12/21/16 08:42 09:02 12:50 MCHC 29.1 L RDW 18.8 H Neutrophils % 86.4 H Lymphocytes % 5.5 L D PT with INR INR Sodium 126 L Potassium Chloride 85 L Carbon Dioxide 20 L Anion Gap 21 H BUN 51 H Creatinine 5.2 H Random Glucose 888 H* Serum Osmolality 341 H Calcium 7.1 L AST ALT Alkaline Phosphatase Albumin Acetone, Qual 12/21/16 12/21/16 17:00 17:46 MCHC RDW Neutrophils % Lymphocytes % PT with INR INR Sodium Potassium 3.0 L D 3.0 L Chloride 92 L 93 L Carbon Dioxide Anion Gap 17 H BUN 19 H D 20 H Creatinine 2.4 H D 2.5 H Random Glucose 265 H D 274 H Serum Osmolality Calcium 8.0 L 7.9 L AST 136 H D ALT 84 H Alkaline Phosphatase 1897 H Albumin 2.6 L Acetone, Qual plan: insulin drip q 1 hr coverage low dose needed fluids very limited esrd once sugar responds dc drip and switch to levemir/novolog combination
[2016-12-22] MEDS: INSULIN SLIDING SCALE (NOVOLOG) 1 VIAL SQ SCH ×6 (01:02→21:15)
[2016-12-22] MEDS ORDERED: dilTIAZem HCL 125 MG/25 ML - 5 ML VIAL IVPUSH ONE (04:30)
[2016-12-22] MEDS: cloNIDine HCL 0.1 MG TABLET PO SCH ×4 (05:47→23:54)
[2016-12-22] MEDS: GABAPENTIN 100 MG CAPSULE (FP) PO SCH ×4 (05:47→21:08)
[2016-12-22] MEDS ORDERED: dilTIAZem HCL 50 MG/10 ML - 10 ML VIAL IVPUSH ONE ×3 (05:47→20:54)
[2016-12-22] MEDS: LABETALOL HCL 200 MG TABLET (FP) PO SCH ×4 (05:48→21:08)
[2016-12-22] MEDS: hydrALAZINE HCL 25 MG TABLET (FP) PO SCH ×4 (05:48→23:54)
[2016-12-22 06:24] LABS: BASOPHIL 0.9 % (0-2.0); EOSINOPHIL 1.5 % (0-4.5); MCH 26.9 pg (25.7-33.7); MCHC 31.8 g/dl (32.0-36.0); MEAN CELL VOLUME 84.8 fl (80-96); MEAN PLT VOLUME 9.4 fl (7.5-11.1); NEUTROPHILS 65.4 % (42.8-82.8); PLATELET COUNT 242 K/MM3 (134-434); RDW 18.2 % (11.6-15.6); WHITE BLOOD COUNT 5.9 K/mm3 (4.0-10.0)
[2016-12-22 06:51] LABS: ALBUMIN 2.3 g/dl (3.4-5.0); ANION GAP 11 (8-16); CALCIUM 7.9 mg/dL (8.5-10.1); CO2 28 mmol/L (21-32); CREATININE 3.4 mg/dL (0.55-1.02); GLUCOSE,RANDOM 243 mg/dL (74-106); MAGNESIUM 1.6 mg/dL (1.8-2.4); PHOSPHOROUS 3.1 mg/dL (2.5-4.9); SGOT/AST 260 U/L (15-37); SGPT/ALT 93 U/L (12-78)
[2016-12-22] MEDS ORDERED: INSULIN DETEMIR 100 UNITS/ML MDV SQ SCH ×4 (07:00→23:43)
[2016-12-22 07:04] LABS: BILIRUBIN,TOTAL 0.7 mg/dL (0.2-1.0); TOT PROT 6.7 g/dl (6.4-8.2)
[2016-12-22 07:05] LABS: ALK PHOS 1935 U/L (45-117)
--- NOTE | 2016-12-22 08:31 | PN ---
Physical Exam: 24H Events: d/c insulin gtt and insulin SQ started SUBJECTIVE: Patient seen and examined in ICU. Complaints of heart burn. No chest pain, SOB, or abdominal pain. No fever, chills, nausea or vomiting. Tolerating diet. Last BM yesterday morning. OBJECTIVE: Vital Signs Period Temp Pulse Resp BP Sys/Ames Pulse Ox Last 24 Hr 97.7 F-99 F 77-93 11-18 134-217/66-143 98-100 Intake & Output 12/19/16 12/20/16 12/21/16 12/22/16 23:59 23:59 23:59 23:59 Intake Total 950 50 Balance 950 50 Weight 81 kg 80.995 kg GENERAL: The patient is awake, alert, and fully oriented, in no acute distress. EYES: sclera anicteric, conjunctiva clear. No ptosis. ENT: moist mucous membranes LUNGS: bibasilar crackles HEART: rrr, normal S1/S2, no murmur, rub or gallop ABDOMEN: Soft, ntnd, normoactive bowel sounds EXTREMITIES: L upper arm palpable AV fistula, no UE edema, 2+ LE pitting edema CBC, BMP 12/22/16 06:05 12/22/16 06:05 Laboratory Tests 12/22/16 06:05 Calcium 7.9 L Phosphorus 3.1 D Magnesium 1.6 L Hepatic Panel Total Bilirubin 0.7 mg/dL (0.2-1.0) 12/22/16 06:05 AST 260 U/L (15-37) H D 12/22/16 06:05 ALT 93 U/L (12-78) H 12/22/16 06:05 Alkaline Phosphatase 1935 U/L (45-117) H 12/22/16 06:05 Albumin 2.3 g/dl (3.4-5.0) L 12/22/16 06:05 Active Medications Acetaminophen (Tylenol -) 325 mg PO Q6H PRN PRN Reason: PAIN Last Admin: 12/21/16 23:56 Dose: 325 mg Acetaminophen (Tylenol -) 325 mg PO Q6H PRN PRN Reason: PAIN LEVEL 6-10 Chlorhexidine Gluconate (Hibiclens For Decolonization -) 1 applic TP HS [facility] Last Admin: 12/21/16 22:06 Dose: 1 applic Cinacalcet (Sensipar -) 60 mg PO DAILY [facility] Clonidine (Catapres -) 0.3 mg PO TID [facility] Last Admin: 12/22/16 05:47 Dose: 0.3 mg Gabapentin (Neurontin -) 100 mg PO TID [facility] Last Admin: 12/22/16 05:47 Dose: 100 mg Heparin Sodium (Porcine) (Heparin -) 5,000 unit SQ BID [facility] Last Admin: 12/21/16 22:06 Dose: Not Given Hydralazine HCl (Apresoline -) 25 mg PO TID [facility] Last Admin: 12/22/16 05:48 Dose: 25 mg Insulin Aspart (Novolog Vial Sliding Scale -) 1 vial SQ Q4H [facility] PRN Reason: Protocol Last Admin: 12/22/16 04:42 Dose: 8 units Insulin Detemir (Levemir Vial) 10 units SQ BID@0700,2200 [facility] Last Admin: 12/22/16 06:32 Dose: 10 units Labetalol HCl (Normodyne -) 200 mg PO TID [facility] Last Admin: 12/22/16 05:48 Dose: 200 mg Losartan Potassium (Cozaar -) 100 mg PO DAILY [facility] Mupirocin (Bactroban Ointment (For Decolonization) -) 1 applic NS BID [facility] Stop: 12/26/16 21:59 Last Admin: 12/21/16 22:06 Dose: 1 applic Nifedipine (Procardia Xl -) 30 mg PO BID [facility] Last Admin: 12/21/16 22:06 Dose: 30 mg Oxycodone HCl (Roxicodone -) 10 mg PO Q6H PRN PRN Reason: PAIN LEVEL 6-10 Last Admin: 12/21/16 23:56 Dose: 10 mg Ranitidine HCl (Zantac -) 150 mg PO DAILY [facility] Last Admin: 12/21/16 19:41 Dose: 150 mg Sevelamer Carbonate (Renvela -) 1,600 mg PO TIDCM [facility] Last Admin: 12/21/16 16:58 Dose: 1,600 mg ASSESSMENT/PLAN: 26yo woman with poorly controlled IDDM and ESRD on HD M/W/F who presents with hyperglycemia without ketosis and volume overload likely 2/2 to medication/diet non-compliance. Patient is s/p HD yesterday (4kg removed) and UF today (2.5kg). #Diabetic hyperosmolar hyperglycemic non-ketotic state -Endocrine consulted -BGM q4h -Insulin sliding scale, 10U levemir sq bid -blood cultures pending (collected 12/22) #ESRD -HD completed today - 2.5 kg fluid removed -Nephrology consulted -Daily weights #HTN -Continue home PO medications: Nifedipine ER 30mg PO BID Losartan 100mg PO daily Labetalol 200mg PO TID Clonidine 0.3mg PO TID Hydralazine 25mg PO TID #GERD -Ranitidine 150mg PO daily #F/E/N -No IVF -Monitory lytes -Na/Diabetic diet #PPX -DVT - b/l SCDs, Heparin 5000U SQ BID, early ambulation as tolerated -GI ppx not indicated Dispo: Patient to be transferred to floors d/w attending Dr. Lesli Sullivan MD PGY-1 Visit type - Emergency Visit Emergency Visit: No - New Patient This patient is new to me today: No - Critical Care Critical Care patient: Yes Total Critical Care Time (in minutes): 35 Critical Care Statement: The care of this patient involved high complexity decision making to prevent further life threatening deterioration of the patient 's condition and/or to evaluate & treat vital organ system(s) failure or risk of failure.
[2016-12-22] MEDS: SEVELAMER CARBONATE 800 MG TAB (FP) PO SCH ×3 (09:11→16:59)
[2016-12-22] MEDS: HEPARIN NA (PORCINE) 5,000 UNITS/ML 1ML VIAL SQ SCH ×2 (09:13→21:10)
[2016-12-22] MEDS: RANITIDINE HCL 150 MG TABLET (FP) PO SCH (09:13)
[2016-12-22] MEDS: MUPIROCIN 2% TOPICAL OINTMENT FOR DECOLONIZATION NS SCH ×2 (09:13→21:09)
[2016-12-22] MEDS ORDERED: LOSARTAN POTASSIUM 50 MG TABLET (FP) PO SCH (10:00)
[2016-12-22] MEDS ORDERED: CINACALCET HCL 30 MG TAB (FP) PO SCH (10:00)
--- NOTE | 2016-12-22 10:13 | PN ---
Progress Note, Physician Chief Complaint: Events noted Pt undergoing dialysis now-- removing extra fluid She states she feels better and has heart burn No abdominal pain No vomiting tolerating diet - Current Medication List Current Medications: Active Medications Acetaminophen (Tylenol -) 325 mg PO Q6H PRN PRN Reason: PAIN Last Admin: 12/21/16 23:56 Dose: 325 mg Acetaminophen (Tylenol -) 325 mg PO Q6H PRN PRN Reason: PAIN LEVEL 6-10 Chlorhexidine Gluconate (Hibiclens For Decolonization -) 1 applic TP HS [facility] Last Admin: 12/21/16 22:06 Dose: 1 applic Cinacalcet (Sensipar -) 60 mg PO DAILY [facility] Clonidine (Catapres -) 0.3 mg PO TID [facility] Last Admin: 12/22/16 05:47 Dose: 0.3 mg Gabapentin (Neurontin -) 100 mg PO TID [facility] Last Admin: 12/22/16 05:47 Dose: 100 mg Heparin Sodium (Porcine) (Heparin -) 5,000 unit SQ BID [facility] Last Admin: 12/22/16 09:13 Dose: Not Given Hydralazine HCl (Apresoline -) 25 mg PO TID [facility] Last Admin: 12/22/16 05:48 Dose: 25 mg Insulin Aspart (Novolog Vial Sliding Scale -) 1 vial SQ Q4H [facility] PRN Reason: Protocol Last Admin: 12/22/16 09:09 Dose: Not Given Insulin Detemir (Levemir Vial) 10 units SQ BID@0700,2200 [facility] Last Admin: 12/22/16 06:32 Dose: 10 units Labetalol HCl (Normodyne -) 200 mg PO TID [facility] Last Admin: 12/22/16 05:48 Dose: 200 mg Losartan Potassium (Cozaar -) 100 mg PO DAILY [facility] Mupirocin (Bactroban Ointment (For Decolonization) -) 1 applic NS BID [facility] Stop: 12/26/16 21:59 Last Admin: 12/22/16 09:13 Dose: Not Given Nifedipine (Procardia Xl -) 30 mg PO BID [facility] Last Admin: 12/21/16 22:06 Dose: 30 mg Oxycodone HCl (Roxicodone -) 10 mg PO Q6H PRN PRN Reason: PAIN LEVEL 6-10 Last Admin: 12/21/16 23:56 Dose: 10 mg Ranitidine HCl (Zantac -) 150 mg PO DAILY [facility] Last Admin: 12/22/16 09:13 Dose: 150 mg Sevelamer Carbonate (Renvela -) 1,600 mg PO TIDCM [facility] Last Admin: 12/22/16 09:11 Dose: 1,600 mg - Objective Vital Signs: Vital Signs Temperature 97.7 F 12/22/16 02:00 Pulse Rate 77 12/22/16 09:45 Respiratory Rate 18 12/22/16 09:45 Blood Pressure 134/86 12/22/16 09:45 O2 Sat by Pulse Oximetry (%) 100 12/22/16 09:00 Constitutional: Yes: No Distress, Calm, Other (face is edematous) Cardiovascular: Yes: Regular Rate and Rhythm Respiratory: Yes: Diminished Gastrointestinal: Yes: Normal Bowel Sounds, Soft, Abdomen, Obese. No: Distention, Tenderness Edema: Yes Edema: LLE: 2+, RLE: 2+ Labs: CBC, BMP 12/22/16 06:05 12/22/16 06:05 INR, PTT INR 1.25 (0.82-1.09) H 12/21/16 08:05 Problem List - Problems (1) ESRD (end stage renal disease) on dialysis Code(s): N18.6 - END STAGE RENAL DISEASE Z99.2 - DEPENDENCE ON RENAL DIALYSIS (2) Anemia Code(s): D64.9 - ANEMIA, UNSPECIFIED Qualifiers: Folate deficiency anemia type: dietary (3) DKA (diabetic ketoacidosis) Code(s): E13.10 - OTH DIABETES MELLITUS WITH KETOACIDOSIS WITHOUT COMA Qualifiers: Diabetes mellitus type: type 1 (4) Fluid overload Code(s): E87.70 - FLUID OVERLOAD, UNSPECIFIED Qualifiers: Hypervolemia type: unspecified Qualified Code(s): E87.70 - Fluid overload, unspecified (5) Liver function abnormality Code(s): K76.89 - OTHER SPECIFIED DISEASES OF LIVER Assessment/Plan PLAN Insulin discontinued Pt receiving dialysis Tolerating diet seen by Cryptologic Linguist elevated LFT-- abdomen is non tender will check sono liver and gallbladder continue with meds, insulin check BGM compliance stressed ok to go to regular floor may ambulate DVT prophylaxis-- heparin sc
[2016-12-22] MEDS: NIFEdipine E.R. 30 MG TABLET (FP) PO SCH ×2 (10:55→21:08)
[2016-12-22] MEDS: oxyCODONE HCL 5 MG TABLET PO PRN ×2 (12:50→19:34)
[2016-12-22] MEDS: ACETAMINOPHEN 325 MG TABLET (FP) PO PRN (12:50)
--- NOTE | 2016-12-22 13:10 | PN ---
Progress Note (short form) - Note Progress Note: Renal Follow up for ESRD on HD with Volume overload Pt seen and examined at the bedside s/p UF this AM with 2.5kg removed s/p HD yesterday with 4kg UF pt feels better has no acute complaints no N/V, SOB, chest pain Vital Signs Temperature 97.6 F 12/22/16 10:00 Pulse Rate 77 12/22/16 12:30 Respiratory Rate 18 12/22/16 12:30 Blood Pressure 118/70 12/22/16 12:30 O2 Sat by Pulse Oximetry (%) 100 12/22/16 09:00 Intake & Output 12/19/16 12/20/16 12/21/16 12/22/16 23:59 23:59 23:59 23:59 Intake Total 950 50 Balance 950 50 Weight 178 lb 9.191 oz 178 lb 9 oz Gen: NAD, awake and alert, facial swelling CVS: RRR, No M/R Lungs: CTA, no rales or wheeze Abd: soft NT/ND Ext: 2+ edema in LE CBC, BMP 12/22/16 06:05 12/22/16 06:05 Laboratory Tests 12/22/16 12/22/16 06:05 06:05 Hemoglobin A1c % 11.4 H D Calcium 7.9 L Phosphorus 3.1 D Magnesium 1.6 L Albumin 2.3 L Current Medications Acetaminophen (Tylenol -) 325 mg PO Q6H PRN PRN Reason: PAIN Last Admin: 12/22/16 12:50 Dose: 325 mg Acetaminophen (Tylenol -) 325 mg PO Q6H PRN PRN Reason: PAIN LEVEL 6-10 Chlorhexidine Gluconate (Hibiclens For Decolonization -) 1 applic TP HS [facility] Last Admin: 12/21/16 22:06 Dose: 1 applic Cinacalcet (Sensipar -) 60 mg PO DAILY [facility] Last Admin: 12/22/16 10:55 Dose: Not Given Clonidine (Catapres -) 0.3 mg PO TID [facility] Last Admin: 12/22/16 05:47 Dose: 0.3 mg Gabapentin (Neurontin -) 100 mg PO TID [facility] Last Admin: 12/22/16 05:47 Dose: 100 mg Heparin Sodium (Porcine) (Heparin -) 5,000 unit SQ BID [facility] Last Admin: 12/22/16 09:13 Dose: Not Given Hydralazine HCl (Apresoline -) 25 mg PO TID [facility] Last Admin: 12/22/16 05:48 Dose: 25 mg Insulin Aspart (Novolog Vial Sliding Scale -) 1 vial SQ Q4H [facility] PRN Reason: Protocol Last Admin: 12/22/16 12:17 Dose: Not Given Insulin Detemir (Levemir Vial) 10 units SQ BID@0700,2200 [facility] Last Admin: 12/22/16 06:32 Dose: 10 units Labetalol HCl (Normodyne -) 200 mg PO TID [facility] Last Admin: 12/22/16 05:48 Dose: 200 mg Losartan Potassium (Cozaar -) 100 mg PO DAILY [facility] Last Admin: 12/22/16 10:55 Dose: Not Given Mupirocin (Bactroban Ointment (For Decolonization) -) 1 applic NS BID [facility] Stop: 12/26/16 21:59 Last Admin: 12/22/16 09:13 Dose: Not Given Nifedipine (Procardia Xl -) 30 mg PO BID [facility] Last Admin: 12/22/16 10:55 Dose: Not Given Oxycodone HCl (Roxicodone -) 10 mg PO Q6H PRN PRN Reason: PAIN LEVEL 6-10 Last Admin: 12/22/16 12:50 Dose: 10 mg Ranitidine HCl (Zantac -) 150 mg PO DAILY [facility] Last Admin: 12/22/16 09:13 Dose: 150 mg Sevelamer Carbonate (Renvela -) 1,600 mg PO TIDCM [facility] Last Admin: 12/22/16 12:13 Dose: 1,600 mg A/P 26 year old woman with PMhx of ESRD on HD ([facility], Primary Director Of Outpatient Services Dr. Wise), DM Type 1, Hypertension, Hx of DVT who presents with complaints of SOB and Volume overload and Hyperglycemia. #ESRD on HD with hypervolemia Tolerated HD yesterday and isolated UF today Continue 2g salt restriction and 1.2L fluid restriction Will plan for dialysis tomorrow with more moderate UF #Hyperglycemia w/o ketosis continue insulin gtt ICU monitoring #Hypertension Continue Clonidine, Labetalol, Losartan, Nifedipine #Renal Oetodystrophy Corrected Ca is WNL continue Sensipar Daily Trend Phos levels Nathan Vo DO Problem List - Problems (1) Diabetic hyperosmolar non-ketotic state Code(s): E11.00 - TYPE 2 DIAB W HYPROSM W/O NONKET HYPRGLY-HYPROS COMA ([facility]) (2) ESRD (end stage renal disease) on dialysis Code(s): N18.6 - END STAGE RENAL DISEASE Z99.2 - DEPENDENCE ON RENAL DIALYSIS (3) Diabetes mellitus, insulin dependent (IDDM), uncontrolled Code(s): E10.65 - TYPE 1 DIABETES MELLITUS WITH HYPERGLYCEMIA Qualifiers: Diabetes mellitus complication status: with unspecified complications Qualified Code(s): E10.8 - Type 1 diabetes mellitus with unspecified complications; E10.65 - Type 1 diabetes mellitus with hyperglycemia (4) Fluid overload Code(s): E87.70 - FLUID OVERLOAD, UNSPECIFIED Qualifiers: Hypervolemia type: unspecified Qualified Code(s): E87.70 - Fluid overload, unspecified
[2016-12-22] MEDS ORDERED: MAGNESIUM OXIDE 400 MG TABLET (FP) PO ONE (13:35)
[2016-12-22] MEDS ORDERED: ACETAMINOPHEN 325 MG TABLET (FP) PO PRN ×2 (13:47)
--- NOTE | 2016-12-22 13:52 | PN ---
Teaching Attending Note Name of Resident: Elvira Sullivan ATTENDING PHYSICIAN STATEMENT I saw and evaluated the patient. I reviewed the resident's note and discussed the case with the resident. I agree with the resident's findings and plan as documented. SUBJECTIVE: Patient seen and examined in the ICU. Currently on acute HD. No chest pain. SOB is improving. CXR : Minimal gross change in bilateral infiltrates. Intake & Output 12/19/16 12/20/16 12/21/16 12/22/16 23:59 23:59 23:59 23:59 Intake Total 950 50 Balance 950 50 Weight 178 lb 9.191 oz 178 lb 9 oz Last Vital Signs Temp Pulse Resp BP Pulse Ox 97.6 F 77 18 118/70 100 12/22/16 10:00 12/22/16 12:30 12/22/16 12:30 12/22/16 12:30 12/22/16 09:00 Active Medications Acetaminophen (Tylenol -) 325 mg PO Q6H PRN PRN Reason: PAIN Acetaminophen (Tylenol -) 325 mg PO Q6H PRN PRN Reason: PAIN LEVEL 6-10 Chlorhexidine Gluconate (Hibiclens For Decolonization -) 1 applic TP HS [facility] Cinacalcet (Sensipar -) 60 mg PO DAILY [facility] Clonidine (Catapres -) 0.3 mg PO TID [facility] Gabapentin (Neurontin -) 100 mg PO TID [facility] Heparin Sodium (Porcine) (Heparin -) 1,000 unit IVPUSH ONCE ONE Stop: 12/23/16 06:01 Heparin Sodium (Porcine) (Heparin -) 5,000 unit SQ BID [facility] Hydralazine HCl (Apresoline -) 25 mg PO TID [facility] Insulin Aspart (Novolog Vial Sliding Scale -) 1 vial SQ Q4H [facility] PRN Reason: Protocol Insulin Detemir (Levemir Vial) 10 units SQ BID@0700,2200 [facility] Labetalol HCl (Normodyne -) 200 mg PO TID [facility] Losartan Potassium (Cozaar -) 100 mg PO DAILY [facility] Mupirocin (Bactroban Ointment (For Decolonization) -) 1 applic NS BID [facility] Stop: 12/26/16 21:59 Nifedipine (Procardia Xl -) 30 mg PO BID [facility] Oxycodone HCl (Roxicodone -) 10 mg PO Q6H PRN PRN Reason: PAIN LEVEL 6-10 Ranitidine HCl (Zantac -) 150 mg PO DAILY [facility] Sevelamer Carbonate (Renvela -) 1,600 mg PO TIDCM [facility] Constitutional: Yes: Awake and alert, NAD Eyes: Yes: Conjunctiva Clear HENT: Yes: WNL Neck: Yes: Supple, Trachea Midline Cardiovascular: Yes: Regular Rate and Rhythm Respiratory: Yes: Diminished, rales Gastrointestinal: Yes: Soft Edema: LLE: 1+, RLE: 1+ Neurological: Yes: Alert Psychiatric: Yes: Alert Laboratory Results - last 24 hr 12/21/16 12/21/16 12/21/16 12:50 17:00 17:46 WBC RBC Hgb Hct MCV MCH MCHC RDW Plt Count MPV Neutrophils % Lymphocytes % Monocytes % Eosinophils % Basophils % Sodium 126 L 136 136 Potassium 4.3 3.0 L D 3.0 L Chloride 85 L 92 L 93 L Carbon Dioxide 20 L 27 D 27 Anion Gap 21 H 17 H 16 BUN 51 H 19 H D 20 H Creatinine 5.2 H 2.4 H D 2.5 H Creat Clearance w eGFR 23.10 POC Glucometer Random Glucose 888 H* 265 H D 274 H Hemoglobin A1c % Calcium 7.1 L 8.0 L 7.9 L Phosphorus Magnesium Total Bilirubin 0.6 D AST 136 H D ALT 84 H Alkaline Phosphatase 1897 H Total Protein 7.2 Albumin 2.6 L 12/21/16 12/21/16 12/22/16 18:46 20:42 06:05 WBC 5.9 RBC 3.77 Hgb 10.2 L Hct 31.9 L D MCV 84.8 MCH 26.9 MCHC 31.8 L RDW 18.2 H Plt Count 242 MPV 9.4 Neutrophils % 65.4 D Lymphocytes % 21.2 D Monocytes % 11.0 H Eosinophils % 1.5 D Basophils % 0.9 Sodium Potassium Chloride Carbon Dioxide Anion Gap BUN Creatinine Creat Clearance w eGFR POC Glucometer 157.25487 93.05928 Random Glucose Hemoglobin A1c % Calcium Phosphorus Magnesium Total Bilirubin AST ALT Alkaline Phosphatase Total Protein Albumin 12/22/16 12/22/16 06:05 06:05 WBC RBC Hgb Hct MCV MCH MCHC RDW Plt Count MPV Neutrophils % Lymphocytes % Monocytes % Eosinophils % Basophils % Sodium 133 L Potassium 3.6 Chloride 94 L Carbon Dioxide 28 Anion Gap 11 BUN 29 H D Creatinine 3.4 H D Creat Clearance w eGFR 16.20 POC Glucometer Random Glucose 243 H Hemoglobin A1c % 11.4 H D Calcium 7.9 L Phosphorus 3.1 D Magnesium 1.6 L Total Bilirubin 0.7 AST 260 H D ALT 93 H Alkaline Phosphatase 1935 H Total Protein 6.7 Albumin 2.3 L Problem List - Problems (1) Diabetic hyperosmolar non-ketotic state Code(s): E11.00 - TYPE 2 DIAB W HYPROSM W/O NONKET HYPRGLY-HYPROS COMA ([facility]) (2) ESRD (end stage renal disease) on dialysis Code(s): N18.6 - END STAGE RENAL DISEASE Z99.2 - DEPENDENCE ON RENAL DIALYSIS (3) Anemia Code(s): D64.9 - ANEMIA, UNSPECIFIED Qualifiers: Folate deficiency anemia type: dietary (4) Diabetes mellitus, insulin dependent (IDDM), uncontrolled Code(s): E10.65 - TYPE 1 DIABETES MELLITUS WITH HYPERGLYCEMIA Qualifiers: Diabetes mellitus complication status: with unspecified complications Qualified Code(s): E10.8 - Type 1 diabetes mellitus with unspecified complications; E10.65 - Type 1 diabetes mellitus with hyperglycemia (5) History of pulmonary embolus (PE) Code(s): Z86.711 - PERSONAL HISTORY OF PULMONARY EMBOLISM (6) Swelling of right lower extremity Code(s): M79.89 - OTHER SPECIFIED SOFT TISSUE DISORDERS Assessment/Plan HD Glycemic control O2 as needed Daily weights AC Floor Dr Ballesteros Critical care time spent in reviewing chart, evaluating patient and formulating plan - 35 minutes.
[2016-12-22] MEDS ORDERED: INSULIN (NOVOLOG) ASPART 100 UNITS/ML 10ML VIAL ONE (17:19)
[2016-12-22] MEDS ORDERED: cloNIDine HCL 0.1 MG TABLET PO ONE (20:01)
[2016-12-22] MEDS ORDERED: hydrALAZINE HCL 25 MG TABLET (FP) PO ONE (20:01)
[2016-12-22] MEDS ORDERED: CHLORHEXIDINE GLUCONATE 4% CLEANSER FOR DECOLONIZATION TP SCH (22:00)
--- NOTE | 2016-12-22 23:46 | PN ---
Progress Note (short form) - Note Progress Note: has elevated sugars despite lack appetite,mostly carb intake Abnormal Lab Results 12/21/16 12/22/16 12/22/16 17:46 06:05 06:05 Hgb 10.2 L Hct 31.9 L D MCHC 31.8 L RDW 18.2 H Monocytes % 11.0 H Sodium 133 L Potassium 3.0 L Chloride 93 L 94 L BUN 20 H 29 H D Creatinine 2.5 H 3.4 H D Random Glucose 274 H 243 H Hemoglobin A1c % Calcium 7.9 L 7.9 L Magnesium 1.6 L AST 136 H D 260 H D ALT 84 H 93 H Alkaline Phosphatase 1897 H 1935 H Albumin 2.6 L 2.3 L 12/22/16 06:05 Hgb Hct MCHC RDW Monocytes % Sodium Potassium Chloride BUN Creatinine Random Glucose Hemoglobin A1c % 11.4 H D Calcium Magnesium AST ALT Alkaline Phosphatase Albumin iddm hyperglycemia Current Active Problems Diabetic hyperosmolar non-ketotic state (Acute) Leukocytosis (Acute) Liver function abnormality (Acute) ESRD (end stage renal disease) on dialysis (Chronic) Current Medications Generic Name Dose Route Start Last Admin Trade Name Freq PRN Reason Stop Dose Admin Acetaminophen 325 mg 12/22/16 13:47 Tylenol - PO Q6H PRN PAIN Acetaminophen 325 mg 12/22/16 13:47 Tylenol - PO Q6H PRN PAIN LEVEL 6-10 Chlorhexidine Gluconate 1 applic 12/22/16 22:00 12/22/16 21:09 Hibiclens For Decolonization - TP 1 applic HS [facility] Administration Cinacalcet 60 mg 12/23/16 10:00 Sensipar - PO DAILY [facility] Clonidine 0.3 mg 12/22/16 14:00 12/22/16 15:08 Catapres - PO Not Given TID [facility] Gabapentin 100 mg 12/22/16 14:00 12/22/16 21:08 Neurontin - PO 100 mg TID [facility] Administration Heparin Sodium (Porcine) 1,000 unit 12/23/16 06:00 Heparin - IVPUSH 12/23/16 06:01 ONCE ONE Heparin Sodium (Porcine) 5,000 unit 12/22/16 22:00 12/22/16 21:10 Heparin - SQ Not Given BID [facility] Hydralazine HCl 25 mg 12/22/16 14:00 12/22/16 15:08 Apresoline - PO Not Given TID [facility] Insulin Aspart 1 vial 12/22/16 16:30 12/22/16 21:15 Novolog Vial Sliding Scale - SQ Not Given Q4H [facility] Protocol Insulin Detemir 15 units 12/22/16 23:43 Levemir Vial SQ BID@0700,2200 [facility] Labetalol HCl 200 mg 12/22/16 14:00 12/22/16 21:08 Normodyne - PO 200 mg TID [facility] Administration Losartan Potassium 100 mg 12/23/16 10:00 Cozaar - PO DAILY [facility] Mupirocin 1 applic 12/22/16 22:00 12/22/16 21:09 Bactroban Ointment (For Decolonization) - NS 12/26/16 21:59 1 applic BID [facility] Administration Nifedipine 30 mg 12/22/16 22:00 12/22/16 21:08 Procardia Xl - PO 30 mg BID [facility] Administration Oxycodone HCl 10 mg 12/22/16 13:47 12/22/16 19:34 Roxicodone - PO 10 mg Q6H PRN Administration PAIN LEVEL 6-10 Ranitidine HCl 150 mg 12/23/16 10:00 Zantac - PO DAILY [facility] Sevelamer Carbonate 1,600 mg 12/22/16 17:30 12/22/16 16:59 Renvela - PO 1,600 mg TIDCM [facility] Administration titration of levemir for hyperglycemia bgm qid achs novolog scale Problem List - Problems (1) Diabetic hyperosmolar non-ketotic state Code(s): E11.00 - TYPE 2 DIAB W HYPROSM W/O NONKET HYPRGLY-HYPROS COMA ([facility]) (2) ESRD (end stage renal disease) on dialysis Code(s): N18.6 - END STAGE RENAL DISEASE Z99.2 - DEPENDENCE ON RENAL DIALYSIS (3) Abdominal pain Code(s): R10.9 - UNSPECIFIED ABDOMINAL PAIN (4) Acute respiratory failure Code(s): J96.00 - ACUTE RESPIRATORY FAILURE, UNSP W HYPOXIA OR HYPERCAPNIA (5) DKA (diabetic ketoacidosis) Code(s): E13.10 - OTH DIABETES MELLITUS WITH KETOACIDOSIS WITHOUT COMA Qualifiers: Diabetes mellitus type: type 1
[2016-12-23] MEDS ORDERED: METOPROLOL TARTRATE 5 MG/5 ML VIAL ONE (01:24)
[2016-12-23] MEDS ORDERED: METOPROLOL TARTRATE 5 MG/5 ML VIAL IVPUSH PRN (01:35)
[2016-12-23] MEDS ORDERED: NICARDIPINE 25 MG in DEXTROSE 5%-WATER - 240 ML IVPB SCH (02:45)
[2016-12-23] MEDS ORDERED: PT OWN MED DRAWER 7, Y5N ONE ×2 (06:35→08:17)
[2016-12-23] MEDS: hydrALAZINE HCL 25 MG TABLET (FP) PO SCH ×3 (06:39→21:46)
[2016-12-23] MEDS: GABAPENTIN 100 MG CAPSULE (FP) PO SCH ×3 (06:39→21:46)
[2016-12-23] MEDS: cloNIDine HCL 0.1 MG TABLET PO SCH ×3 (06:39→21:47)
[2016-12-23] MEDS: LABETALOL HCL 200 MG TABLET (FP) PO SCH ×3 (06:39→21:46)
[2016-12-23] MEDS: INSULIN SLIDING SCALE (NOVOLOG) 1 VIAL SQ SCH ×4 (06:41→21:50)
--- NOTE | 2016-12-23 07:32 | PN ---
Physical Exam: 24H: -o/n: started on cardene gtt for HTN (200's/100's) SUBJECTIVE: Patient seen and examined in ICU. No chest pain, chest pressure or palpitations. No headache. No SOB or abdominal pain. Last BM 2 days ago , + flatus. Receiving HD with goal of removing 4L. OBJECTIVE: Vital Signs Period Temp Pulse Resp BP Sys/Ames Pulse Ox Last 24 Hr 97.3 F-97.6 F 70-87 11-18 111-222/66-122 100-100 Intake & Output 12/20/16 12/21/16 12/22/16 12/23/16 23:59 23:59 23:59 23:59 Intake Total 950 750 175 Balance 950 750 175 Weight 81 kg 80.995 kg 79.549 kg GENERAL: The patient is awake, alert, and fully oriented, in no acute distress. EYES: sclera anicteric, conjunctiva clear. No ptosis. ENT: moist mucous membranes LUNGS: CTAB HEART: rrr, normal S1/S2, no murmur, rub or gallop ABDOMEN: Soft, ntnd EXTREMITIES: L upper arm palpable AV fistula, no UE edema, 2+ LE pitting edema 12/23/16 07:00 Sodium 133 mmol/L (136-145) L 12/23/16 07:00 Potassium 4.2 mmol/L (3.5-5.1) 12/23/16 07:00 Chloride 95 mmol/L (98-107) L 12/23/16 07:00 Carbon Dioxide 29 mmol/L (21-32) 12/23/16 07:00 Anion Gap 9 (8-16) 12/23/16 07:00 BUN 33 mg/dL (7-18) H 12/23/16 07:00 Creatinine 3.5 mg/dL (0.55-1.02) H 12/23/16 07:00 Creat Clearance w eGFR 16.20 (>60) 12/22/16 06:05 Calcium 7.9 mg/dL (8.5-10.1) L 12/23/16 07:00 Total Bilirubin 0.5 mg/dL (0.2-1.0) D 12/23/16 07:00 AST 176 U/L (15-37) H D 12/23/16 07:00 ALT 74 U/L (12-78) D 12/23/16 07:00 Alkaline Phosphatase 1685 U/L (45-117) H 12/23/16 07:00 Total Protein 6.3 g/dl (6.4-8.2) L 12/23/16 07:00 Albumin 2.1 g/dl (3.4-5.0) L 12/23/16 07:00 Current Medications Acetaminophen (Tylenol -) 325 mg PO Q6H PRN PRN Reason: PAIN Acetaminophen (Tylenol -) 325 mg PO Q6H PRN PRN Reason: PAIN LEVEL 6-10 Chlorhexidine Gluconate (Hibiclens For Decolonization -) 1 applic TP HS [facility] Last Admin: 12/22/16 21:09 Dose: 1 applic Cinacalcet (Sensipar -) 60 mg PO DAILY [facility] Clonidine (Catapres -) 0.3 mg PO TID [facility] Last Admin: 12/23/16 06:39 Dose: 0.3 mg Gabapentin (Neurontin -) 100 mg PO TID [facility] Last Admin: 12/23/16 06:39 Dose: 100 mg Heparin Sodium (Porcine) (Heparin -) 1,000 unit IVPUSH ONCE ONE Stop: 12/23/16 06:01 Heparin Sodium (Porcine) (Heparin -) 5,000 unit SQ BID [facility] Last Admin: 12/22/16 21:10 Dose: Not Given Hydralazine HCl (Apresoline -) 25 mg PO TID [facility] Last Admin: 12/23/16 06:39 Dose: 25 mg Nicardipine HCl 25 mg/ (Dextrose) 250 mls @ 25 mls/hr IVPB TITR [facility]; 2.5 MG/HR PRN Reason: Protocol Last Admin: 12/23/16 03:17 Dose: 25 mls/hr Insulin Aspart (Novolog Vial Sliding Scale -) 1 vial SQ ACHS [facility] PRN Reason: Protocol Last Admin: 12/23/16 06:41 Dose: Not Given Insulin Detemir (Levemir Vial) 15 units SQ BID@0700,2200 [facility] Last Admin: 12/23/16 06:39 Dose: 15 units Labetalol HCl (Normodyne -) 200 mg PO TID [facility] Last Admin: 12/23/16 06:39 Dose: 200 mg Losartan Potassium (Cozaar -) 100 mg PO DAILY [facility] Mupirocin (Bactroban Ointment (For Decolonization) -) 1 applic NS BID [facility] Stop: 12/26/16 21:59 Last Admin: 12/22/16 21:09 Dose: 1 applic Nifedipine (Procardia Xl -) 30 mg PO BID [facility] Last Admin: 12/22/16 21:08 Dose: 30 mg Oxycodone HCl (Roxicodone -) 10 mg PO Q6H PRN PRN Reason: PAIN LEVEL 6-10 Last Admin: 12/22/16 19:34 Dose: 10 mg Ranitidine HCl (Zantac -) 150 mg PO DAILY [facility] Sevelamer Carbonate (Renvela -) 1,600 mg PO TIDCM [facility] Last Admin: 12/22/16 16:59 Dose: 1,600 mg ASSESSMENT/PLAN: 26yo woman with poorly controlled IDDM and ESRD (on HD M/W/) who presents with hyperosmolar hyperglycemia without ketosis and volume overload likely 2/2 to medication/diet non-compliance. Patient is s/p HD yesterday (4kg removed) and UF today with goal of 4L. #Diabetic hyperosmolar hyperglycemic non-ketotic state -Endocrine consulted -BGM q4h -Insulin sliding scale, levemir increased to 15U SQ BID -blood cultures pending (collected 12/22) #ESRD -Nephrology consulted -HD per Renal -Daily weights #HTN -taper Nicardipine drip -Continue home PO medications: Nifedipine ER 30mg PO BID Losartan 100mg PO daily Labetalol 200mg PO TID Clonidine 0.3mg PO TID Hydralazine 25mg PO TID #GERD -Ranitidine 150mg PO daily #Neuro -Oxycodone HCl 10 mg PO Q6H PRN for pain #F/E/N -No IVF -Monitor lytes -Renal/Diabetic diet with 1200cc fluid restriction #PPX -DVT - b/l SCDs, Heparin 5000U SQ BID, early ambulation as tolerated -GI ppx not indicated Dispo: transfer to med-surg d/w attending Dr. Bob Sullivan MD PGY-1 Visit type - Emergency Visit Emergency Visit: No - New Patient This patient is new to me today: No - Critical Care Critical Care patient: Yes Total Critical Care Time (in minutes): 35 Critical Care Statement: The care of this patient involved high complexity decision making to prevent further life threatening deterioration of the patient 's condition and/or to evaluate & treat vital organ system(s) failure or risk of failure.
[2016-12-23] MEDS ORDERED: HEPARIN NA (PORCINE) 5,000 UNITS/ML 1ML VIAL IVPUSH ONE (08:15)
[2016-12-23 08:40] LABS: BASOPHIL 1.3 % (0-2.0); EOSINOPHIL 2.3 % (0-4.5); MCH 26.8 pg (25.7-33.7); MCHC 31.4 g/dl (32.0-36.0); MEAN CELL VOLUME 85.5 fl (80-96); MEAN PLT VOLUME 9.7 fl (7.5-11.1); PLATELET COUNT 229 K/MM3 (134-434); RDW 18.7 % (11.6-15.6); WHITE BLOOD COUNT 7.5 K/mm3 (4.0-10.0)
[2016-12-23] MEDS: SEVELAMER CARBONATE 800 MG TAB (FP) PO SCH ×3 (08:40→16:59)
[2016-12-23] MEDS: MUPIROCIN 2% TOPICAL OINTMENT FOR DECOLONIZATION NS SCH (09:06)
[2016-12-23 09:21] LABS: ANION GAP 9 (8-16); CALCIUM 7.9 mg/dL (8.5-10.1); CO2 29 mmol/L (21-32); CREATININE 3.5 mg/dL (0.55-1.02); GLUCOSE,RANDOM 127 mg/dL (74-106); PHOSPHOROUS 3.2 mg/dL (2.5-4.9)
[2016-12-23] MEDS ORDERED: CINACALCET HCL 30 MG TAB (FP) PO SCH (10:00)
[2016-12-23] MEDS ORDERED: RANITIDINE HCL 150 MG TABLET (FP) PO SCH (10:00)
[2016-12-23] MEDS ORDERED: LOSARTAN POTASSIUM 50 MG TABLET (FP) PO SCH (10:00)
--- NOTE | 2016-12-23 10:01 | PN ---
Progress Note, Physician Chief Complaint: on Nicardipine drip for elevated BP appetite good No abdominal pain no complaints feels well undergoing HD now - Current Medication List Current Medications: Active Medications Acetaminophen (Tylenol -) 325 mg PO Q6H PRN PRN Reason: PAIN Acetaminophen (Tylenol -) 325 mg PO Q6H PRN PRN Reason: PAIN LEVEL 6-10 Chlorhexidine Gluconate (Hibiclens For Decolonization -) 1 applic TP HS [facility] Last Admin: 12/22/16 21:09 Dose: 1 applic Cinacalcet (Sensipar -) 60 mg PO DAILY [facility] Clonidine (Catapres -) 0.3 mg PO TID [facility] Last Admin: 12/23/16 06:39 Dose: 0.3 mg Gabapentin (Neurontin -) 100 mg PO TID [facility] Last Admin: 12/23/16 06:39 Dose: 100 mg Heparin Sodium (Porcine) (Heparin -) 5,000 unit SQ BID [facility] Last Admin: 12/22/16 21:10 Dose: Not Given Hydralazine HCl (Apresoline -) 25 mg PO TID [facility] Last Admin: 12/23/16 06:39 Dose: 25 mg Nicardipine HCl 25 mg/ (Dextrose) 250 mls @ 25 mls/hr IVPB TITR [facility]; 2.5 MG/HR PRN Reason: Protocol Last Admin: 12/23/16 03:17 Dose: 25 mls/hr Insulin Aspart (Novolog Vial Sliding Scale -) 1 vial SQ ACHS [facility] PRN Reason: Protocol Last Admin: 12/23/16 06:41 Dose: Not Given Insulin Detemir (Levemir Vial) 15 units SQ BID@0700,2200 [facility] Last Admin: 12/23/16 06:39 Dose: 15 units Labetalol HCl (Normodyne -) 200 mg PO TID [facility] Last Admin: 12/23/16 06:39 Dose: 200 mg Losartan Potassium (Cozaar -) 100 mg PO DAILY [facility] Mupirocin (Bactroban Ointment (For Decolonization) -) 1 applic NS BID [facility] Stop: 12/26/16 21:59 Last Admin: 12/23/16 09:06 Dose: Not Given Nifedipine (Procardia Xl -) 30 mg PO BID [facility] Last Admin: 12/22/16 21:08 Dose: 30 mg Oxycodone HCl (Roxicodone -) 10 mg PO Q6H PRN PRN Reason: PAIN LEVEL 6-10 Last Admin: 12/22/16 19:34 Dose: 10 mg Ranitidine HCl (Zantac -) 150 mg PO DAILY [facility] Sevelamer Carbonate (Renvela -) 1,600 mg PO TIDCM [facility] Last Admin: 12/23/16 08:40 Dose: 1,600 mg - Objective Vital Signs: Vital Signs Temperature 98.4 F 12/23/16 07:30 Pulse Rate 86 12/23/16 09:30 Respiratory Rate 18 12/23/16 09:30 Blood Pressure 131/83 12/23/16 09:30 O2 Sat by Pulse Oximetry (%) 100 12/23/16 07:56 Constitutional: Yes: No Distress, Calm Cardiovascular: Yes: Regular Rate and Rhythm Respiratory: Yes: Diminished Gastrointestinal: Yes: Normal Bowel Sounds, Soft, Abdomen, Obese. No: Distention, Tenderness Edema: Yes (decreased) Psychiatric: Yes: Alert, Oriented Labs: CBC, BMP 12/23/16 07:00 12/23/16 07:00 INR, PTT INR 1.25 (0.82-1.09) H 12/21/16 08:05 Problem List - Problems (1) ESRD (end stage renal disease) on dialysis Code(s): N18.6 - END STAGE RENAL DISEASE Z99.2 - DEPENDENCE ON RENAL DIALYSIS (2) Anemia Code(s): D64.9 - ANEMIA, UNSPECIFIED Qualifiers: Folate deficiency anemia type: dietary (3) DKA (diabetic ketoacidosis) Code(s): E13.10 - OTH DIABETES MELLITUS WITH KETOACIDOSIS WITHOUT COMA Qualifiers: Diabetes mellitus type: type 1 (4) Fluid overload Code(s): E87.70 - FLUID OVERLOAD, UNSPECIFIED Qualifiers: Hypervolemia type: unspecified Qualified Code(s): E87.70 - Fluid overload, unspecified (5) Liver function abnormality Code(s): K76.89 - OTHER SPECIFIED DISEASES OF LIVER Assessment/Plan PLAN Levemir increased Pt receiving dialysis Tolerating diet elevated LFT-- repeat LFT today Sono-- hepatomegaly and diffuse gallbladder wall thickening-- will consult with GI continue with meds, insulin check BGM compliance stressed on Nicardipine drip for elevated BP-- now BP better OOB to chair DVT prophylaxis-- heparin sc
[2016-12-23 10:24] LABS: ALBUMIN 2.1 g/dl (3.4-5.0); BILIRUBIN,DIRECT 0.2 mg/dL (0.0-0.2); BILIRUBIN,TOTAL 0.5 mg/dL (0.2-1.0); SGOT/AST 176 U/L (15-37); SGPT/ALT 74 U/L (12-78); TOT PROT 6.3 g/dl (6.4-8.2)
[2016-12-23 10:35] LABS: ALK PHOS 1685 U/L (45-117)
[2016-12-23] MEDS: HEPARIN NA (PORCINE) 5,000 UNITS/ML 1ML VIAL SQ SCH ×2 (12:04→21:58)
[2016-12-23] MEDS: NIFEdipine E.R. 30 MG TABLET (FP) PO SCH ×2 (12:05→21:47)
[2016-12-23] MEDS: oxyCODONE HCL 5 MG TABLET PO PRN ×2 (12:13→21:47)
--- NOTE | 2016-12-23 12:56 | PN ---
Progress Note (short form) - Note Progress Note: Renal Follow up for ESRD on HD with Volume overload Pt seen and examined during dialysis Pt tolerating Hd well BP high, Uf goal is 3.5L, Access with good flow and pressures WNL pt reports feeling abd fullness because of her swelling denies any sob, chest pain Vital Signs Temperature 98.4 F 12/23/16 11:45 Pulse Rate 88 12/23/16 12:49 Respiratory Rate 16 12/23/16 12:37 Blood Pressure 143/88 12/23/16 12:49 O2 Sat by Pulse Oximetry (%) 100 12/23/16 07:56 Intake & Output 12/20/16 12/21/16 12/22/16 12/23/16 23:59 23:59 23:59 23:59 Intake Total 950 750 175 Balance 950 750 175 Weight 178 lb 9.191 oz 178 lb 9 oz 175 lb 6 oz Gen: NAD, awake and alert, facial swelling CVS: RRR, No M/R Lungs: CTA, no rales or wheeze Abd: soft NT/ND Ext: 2+ edema in LE CBC, BMP 12/23/16 07:00 12/23/16 07:00 Laboratory Tests 12/23/16 07:00 Calcium 7.9 L Phosphorus 3.2 Albumin 2.1 L Current Medications Acetaminophen (Tylenol -) 325 mg PO Q6H PRN PRN Reason: PAIN Last Admin: 12/23/16 12:13 Dose: 325 mg Acetaminophen (Tylenol -) 325 mg PO Q6H PRN PRN Reason: PAIN LEVEL 6-10 Chlorhexidine Gluconate (Hibiclens For Decolonization -) 1 applic TP HS [facility] Last Admin: 12/22/16 21:09 Dose: 1 applic Cinacalcet (Sensipar -) 60 mg PO DAILY [facility] Last Admin: 12/23/16 12:11 Dose: 60 mg Clonidine (Catapres -) 0.3 mg PO TID [facility] Last Admin: 12/23/16 06:39 Dose: 0.3 mg Gabapentin (Neurontin -) 100 mg PO TID [facility] Last Admin: 12/23/16 06:39 Dose: 100 mg Heparin Sodium (Porcine) (Heparin -) 5,000 unit SQ BID [facility] Last Admin: 12/23/16 12:04 Dose: 5,000 unit Hydralazine HCl (Apresoline -) 25 mg PO TID [facility] Last Admin: 12/23/16 06:39 Dose: 25 mg Nicardipine HCl 25 mg/ (Dextrose) 250 mls @ 25 mls/hr IVPB TITR [facility]; 2.5 MG/HR PRN Reason: Protocol Last Titration: 12/23/16 12:49 Dose: 0 mg/hr Insulin Aspart (Novolog Vial Sliding Scale -) 1 vial SQ ACHS [facility] PRN Reason: Protocol Last Admin: 12/23/16 12:11 Dose: Not Given Insulin Detemir (Levemir Vial) 15 units SQ BID@0700,2200 [facility] Last Admin: 12/23/16 06:39 Dose: 15 units Labetalol HCl (Normodyne -) 200 mg PO TID [facility] Last Admin: 12/23/16 06:39 Dose: 200 mg Losartan Potassium (Cozaar -) 100 mg PO DAILY [facility] Last Admin: 12/23/16 12:04 Dose: 100 mg Mupirocin (Bactroban Ointment (For Decolonization) -) 1 applic NS BID [facility] Stop: 12/26/16 21:59 Last Admin: 12/23/16 09:06 Dose: Not Given Nifedipine (Procardia Xl -) 30 mg PO BID [facility] Last Admin: 12/23/16 12:05 Dose: 30 mg Oxycodone HCl (Roxicodone -) 10 mg PO Q6H PRN PRN Reason: PAIN LEVEL 6-10 Last Admin: 12/23/16 12:13 Dose: 10 mg Ranitidine HCl (Zantac -) 150 mg PO DAILY [facility] Last Admin: 12/23/16 12:18 Dose: 150 mg Sevelamer Carbonate (Renvela -) 1,600 mg PO TIDCM [facility] Last Admin: 12/23/16 12:12 Dose: 1,600 mg A/P 26 year old woman with PMhx of ESRD on HD ([facility], Primary [employer] Dr. Wise), DM Type 1, Hypertension, Hx of DVT who presents with complaints of SOB and Volume overload and Hyperglycemia. #ESRD on HD with hypervolemia Pt tolerating HD well today removing 3.5 today as tolerated fluid restriction of 1.2 L low salt diet will re-evaluate tomorrow for need for furthe fluid removal Nathan Vo DO Problem List - Problems (1) Diabetic hyperosmolar non-ketotic state Code(s): E11.00 - TYPE 2 DIAB W HYPROSM W/O NONKET HYPRGLY-HYPROS COMA ([facility]) (2) ESRD (end stage renal disease) on dialysis Code(s): N18.6 - END STAGE RENAL DISEASE Z99.2 - DEPENDENCE ON RENAL DIALYSIS (3) Diabetes mellitus, insulin dependent (IDDM), uncontrolled Code(s): E10.65 - TYPE 1 DIABETES MELLITUS WITH HYPERGLYCEMIA Qualifiers: Diabetes mellitus complication status: with unspecified complications Qualified Code(s): E10.8 - Type 1 diabetes mellitus with unspecified complications; E10.65 - Type 1 diabetes mellitus with hyperglycemia (4) Fluid overload Code(s): E87.70 - FLUID OVERLOAD, UNSPECIFIED Qualifiers: Hypervolemia type: unspecified Qualified Code(s): E87.70 - Fluid overload, unspecified
--- NOTE | 2016-12-23 14:43 | PN ---
Teaching Attending Note Name of Resident: Elvira Sullivan ATTENDING PHYSICIAN STATEMENT I saw and evaluated the patient. I reviewed the resident's note and discussed the case with the resident. I agree with the resident's findings and plan as documented. SUBJECTIVE: Pt seen and examined in the ICU. Placed on cardene gtt overnight due to uncontrolled HTN. Denies shortness of breath, chest pain, headache. Currently getting dialyzed with UF goal 4L. OBJECTIVE: Last Vital Signs Temp Pulse Resp BP Pulse Ox 98.4 F 86 16 124/80 100 12/23/16 11:45 12/23/16 13:00 12/23/16 13:00 12/23/16 13:00 12/23/16 07:56 Intake & Output 12/20/16 12/21/16 12/22/16 12/23/16 23:59 23:59 23:59 23:59 Intake Total 950 750 175 Balance 950 750 175 Weight 178 lb 9.191 oz 178 lb 9 oz 175 lb 6 oz Gen: NAD at rest Heart: RRR Lung: decreased breath sounds at the bases Abd: soft, nontender Ext: + edema CBC, BMP 12/23/16 07:00 12/23/16 07:00 Active Medications Acetaminophen (Tylenol -) 325 mg PO Q6H PRN PRN Reason: PAIN Last Admin: 12/23/16 12:13 Dose: 325 mg Acetaminophen (Tylenol -) 325 mg PO Q6H PRN PRN Reason: PAIN LEVEL 6-10 Chlorhexidine Gluconate (Hibiclens For Decolonization -) 1 applic TP HS [facility] Last Admin: 12/22/16 21:09 Dose: 1 applic Cinacalcet (Sensipar -) 60 mg PO DAILY [facility] Last Admin: 12/23/16 12:11 Dose: 60 mg Clonidine (Catapres -) 0.3 mg PO TID [facility] Last Admin: 12/23/16 13:37 Dose: 0.3 mg Gabapentin (Neurontin -) 100 mg PO TID [facility] Last Admin: 12/23/16 13:37 Dose: 100 mg Heparin Sodium (Porcine) (Heparin -) 5,000 unit SQ BID [facility] Last Admin: 12/23/16 12:04 Dose: 5,000 unit Hydralazine HCl (Apresoline -) 25 mg PO TID [facility] Last Admin: 12/23/16 13:37 Dose: 25 mg Insulin Aspart (Novolog Vial Sliding Scale -) 1 vial SQ ACHS [facility] PRN Reason: Protocol Last Admin: 12/23/16 12:11 Dose: Not Given Insulin Detemir (Levemir Vial) 15 units SQ BID@0700,2200 [facility] Last Admin: 12/23/16 06:39 Dose: 15 units Labetalol HCl (Normodyne -) 200 mg PO TID [facility] Last Admin: 12/23/16 13:38 Dose: 200 mg Losartan Potassium (Cozaar -) 100 mg PO DAILY [facility] Last Admin: 12/23/16 12:04 Dose: 100 mg Mupirocin (Bactroban Ointment (For Decolonization) -) 1 applic NS BID [facility] Stop: 12/26/16 21:59 Last Admin: 12/23/16 09:06 Dose: Not Given Nifedipine (Procardia Xl -) 30 mg PO BID [facility] Last Admin: 12/23/16 12:05 Dose: 30 mg Oxycodone HCl (Roxicodone -) 10 mg PO Q6H PRN PRN Reason: PAIN LEVEL 6-10 Last Admin: 12/23/16 12:13 Dose: 10 mg Ranitidine HCl (Zantac -) 150 mg PO DAILY [facility] Last Admin: 12/23/16 12:18 Dose: 150 mg Sevelamer Carbonate (Renvela -) 1,600 mg PO TIDCM [facility] Last Admin: 12/23/16 12:12 Dose: 1,600 mg ASSESSMENT AND PLAN: Hyperglycemic Hyperosmolar Nonketotic State resolved Hypertensive Urgency Volume Overload ESRD on HD DM Noncompliance - titrate PO meds - taper off cardene gtt - glucose control - HD per renal - encourage compliance - DVT prophylaxis - can monitor on floor once off cardene gtt
--- NOTE | 2016-12-23 16:30 | CON.GI ---
Consult Consult Specialty:: gastroenterology Referred by:: Dr Edna Calero - History of Present Illness History of Present Illness: 26 year old woman with PMhx of ESRD on HD ([facility], Primary [employer] Dr. Wise), DM Type 1, Hypertension, Hx of DVT who presents with complaints of SOB and Volume overload and Hyperglycemia. Pt last had dialysis on Wednesday. Reports being about 6kg about her dry weight. Denies any dietiary indiscretion. No Chest pain, Abd pain, N/V/D, fever or chills. Does not make any urine. The patient has moderate elevation of her SGOT. She denies alcohol and IV drug abuse. Hepatitis profile is pending.She has hiccups and heartburns. EGD done 2016 as part of anemia work-up. There was no active bleeding noted. - Past Medical History Cardio/Vascular: Yes: CHF, HTN, Other (thrombus in heart per echo 11/2013; ? subclavian vein thromboses s/p dialysis catheters in the past) Pulmonary: Yes: Pulmonary Embolus Renal/: Yes: Renal Failure, Hemodialysis ...LMP: 08/17/14 Infectious Disease: Yes: MRSA (history of bacteremia, recent mrsa foot abscess) Endocrine: Yes: Diabetes Mellitus (type 1 on insulin pump) Additional Medical History: DVT, PE on coumadin - Past Surgical History Past Surgical History: Yes: AV Fistula/Graft (Right arm) - Alcohol/Substance Use Hx Alcohol Use: No History of Substance Use: reports: None - Smoking History Smoking history: Never smoked Have you smoked in the past 12 months: No Aproximately how many cigarettes per day: 10 - Social History Usual Living Arrangement: With Parent ADL: Independent Occupation: unemployed History of Recent Travel: No Home Medications - Allergies Allergies/Adverse Reactions: Allergies Allergy/AdvReac Type Severity Reaction Status Date / Time No Known Drug Allergies Allergy Verified 12/21/16 07:06 - Home Medications Home Medications: Ambulatory Orders Gabapentin 100 mg PO TID 03/11/16 Clonidine HCl [Catapres -] 0.3 mg PO TID #90 tablet 07/14/16 Hydralazine HCl [Apresoline -] 25 mg PO TID #60 tablet 07/14/16 Labetalol HCl [Normodyne -] 200 mg PO TID #90 tablet 07/14/16 Sevelamer Carbonate [Renvela -] 1,600 mg PO TIDCM #60 tab 07/14/16 Cinacalcet HCl [Sensipar] 60 mg PO DAILY 08/05/16 Insulin (Levemir) [Levemir Flexpen -] 10 units SQ BID #5 pen 08/11/16 Oxycodone HCl/Acetaminophen [Percocet 5-325 mg Tablet] 1 tab PO Q6H PRN #60 tablet MDD 4 08/11/16 Nifedipine [Procardia Xl] 30 mg PO BID #0 tab 08/27/16 Acetaminophen [Tylenol .Regular Strength -] 325 mg PO Q6H PRN #0 tablet Diphenhydramine [Benadryl -] 75 mg PO HS 12/21/16 Insulin Lispro [Humalog Kwikpen U-100] 0 unit SQ TID 12/21/16 Losartan Potassium [Cozaar -] 100 mg PO DAILY 12/21/16 Family Disease History - Family Disease History Family Disease History: Diabetes: Grandparent (HTN), Heart Disease: Grandparent , Other: Father (unknown), Mother (HTN) Physical Exam-GI Vital Signs: Vital Signs Temperature 98.6 F 12/23/16 15:17 Pulse Rate 85 12/23/16 15:17 Respiratory Rate 20 12/23/16 15:17 Blood Pressure 160/95 12/23/16 15:17 O2 Sat by Pulse Oximetry (%) 100 12/23/16 07:56 Constitutional: Yes: Well Nourished Eyes: Yes: Conjunctiva Clear HENT: Yes: Atraumatic Neck: Yes: Trachea Midline Cardiovascular: Yes: Regular Rate and Rhythm Respiratory: Yes: CTA Bilaterally ...Palpate: Yes: Soft. No: Firm/Rigid, Guarding, Hepatomegaly, Mass, Pulsatile Mass, Splenomegaly, Tenderness, Tenderness, Epigastium Labs: CBC, BMP 12/23/16 07:00 12/23/16 07:00 INR, PTT INR 1.25 (0.82-1.09) H 12/21/16 08:05 Problem List - Problems (1) Elevated liver enzymes Assessment/Plan: etiology unclear R> abdominal ultrasound serial lfts MILIND,antismooth muscle antibody Code(s): R74.8 - ABNORMAL LEVELS OF OTHER SERUM ENZYMES (2) Gastroparesis Assessment/Plan: Retgaln 5mg 30 min ac Code(s): K31.84 - GASTROPARESIS
[2016-12-23] MEDS ORDERED: dilTIAZem HCL 50 MG/10 ML - 10 ML VIAL IVPUSH ONE ×2 (16:39→18:38)
[2016-12-23] MEDS ORDERED: ACETAMINOPHEN 325 MG TABLET (FP) PO PRN (20:41)
[2016-12-23] MEDS: INSULIN DETEMIR 100 UNITS/ML MDV SQ SCH (21:59)
[2016-12-23] MEDS ORDERED: MUPIROCIN 2% TOPICAL OINTMENT FOR DECOLONIZATION NS SCH (22:00)
[2016-12-23] MEDS ORDERED: CHLORHEXIDINE GLUCONATE 4% CLEANSER FOR DECOLONIZATION TP SCH (22:00)
[2016-12-24] MEDS: hydrALAZINE HCL 25 MG TABLET (FP) PO SCH ×3 (05:46→21:10)
[2016-12-24] MEDS: GABAPENTIN 100 MG CAPSULE (FP) PO SCH ×3 (05:46→21:09)
[2016-12-24] MEDS: LABETALOL HCL 200 MG TABLET (FP) PO SCH ×2 (05:46→21:10)
[2016-12-24] MEDS: cloNIDine HCL 0.1 MG TABLET PO SCH ×3 (05:46→21:10)
[2016-12-24] MEDS: oxyCODONE HCL 5 MG TABLET PO PRN ×2 (05:48→13:44)
[2016-12-24] MEDS: INSULIN SLIDING SCALE (NOVOLOG) 1 VIAL SQ SCH ×5 (06:21→21:15)
[2016-12-24] MEDS: INSULIN DETEMIR 100 UNITS/ML MDV SQ SCH ×2 (06:24→21:17)
[2016-12-24] MEDS: METOCLOPRAMIDE HCL 10 MG TABLET (FP) PO SCH ×3 (06:57→17:14)
[2016-12-24] MEDS ORDERED: METOCLOPRAMIDE HCL 10 MG TABLET (FP) PO SCH (07:00)
[2016-12-24 07:59] LABS: ALBUMIN 2.4 g/dl (3.4-5.0); ANION GAP 12 (8-16); BILIRUBIN,TOTAL 0.6 mg/dL (0.2-1.0); CALCIUM 7.1 mg/dL (8.5-10.1); CO2 29 mmol/L (21-32); CREATININE 3.1 mg/dL (0.55-1.02); GLUCOSE,RANDOM 191 mg/dL (74-106); SGOT/AST 123 U/L (15-37); SGPT/ALT 63 U/L (12-78); TOT PROT 6.8 g/dl (6.4-8.2)
[2016-12-24 08:13] LABS: ALK PHOS 1671 U/L (45-117)
[2016-12-24] MEDS: SEVELAMER CARBONATE 800 MG TAB (FP) PO SCH ×3 (08:37→17:50)
[2016-12-24] MEDS ORDERED: PT OWN MED DRAWER 7, Y5N ONE (09:50)
[2016-12-24] MEDS: CINACALCET HCL 30 MG TAB (FP) PO SCH (09:57)
[2016-12-24] MEDS: LOSARTAN POTASSIUM 50 MG TABLET (FP) PO SCH (09:57)
[2016-12-24] MEDS: NIFEdipine E.R. 30 MG TABLET (FP) PO SCH ×2 (09:57→21:10)
[2016-12-24] MEDS: HEPARIN NA (PORCINE) 5,000 UNITS/ML 1ML VIAL SQ SCH ×3 (09:58→21:15)
[2016-12-24] MEDS: RANITIDINE HCL 150 MG TABLET (FP) PO SCH (09:58)
--- NOTE | 2016-12-24 10:07 | PN ---
Progress Note (short form) - Note Progress Note: PULMONARY BP still high. Dialyzed yesterday. Denies shortness of breath. Last Vital Signs Temp Pulse Resp BP Pulse Ox 98.3 F 93 H 20 142/90 98 12/24/16 06:16 12/24/16 06:16 12/24/16 06:16 12/24/16 06:16 12/23/16 21:00 Gen: NAD at rest Heart: RRR Lung: decreased breath sounds at the bases Abd: soft, nontender Ext: + edema CBC, BMP 12/23/16 07:00 12/24/16 06:00 Active Medications Acetaminophen (Tylenol -) 325 mg PO Q6H PRN PRN Reason: PAIN Acetaminophen (Tylenol -) 325 mg PO Q6H PRN PRN Reason: PAIN LEVEL 6-10 Cinacalcet (Sensipar -) 60 mg PO DAILY [facility] Last Admin: 12/24/16 09:57 Dose: 60 mg Clonidine (Catapres -) 0.3 mg PO TID [facility] Last Admin: 12/24/16 05:46 Dose: 0.3 mg Gabapentin (Neurontin -) 100 mg PO TID [facility] Last Admin: 12/24/16 05:46 Dose: 100 mg Heparin Sodium (Porcine) (Heparin -) 5,000 unit SQ BID [facility] Last Admin: 12/24/16 10:03 Dose: Not Given Hydralazine HCl (Apresoline -) 25 mg PO TID [facility] Last Admin: 12/24/16 05:46 Dose: 25 mg Insulin Aspart (Novolog Vial Sliding Scale -) 1 vial SQ ACHS [facility] PRN Reason: Protocol Last Admin: 12/24/16 06:21 Dose: 3 units Insulin Detemir (Levemir Vial) 15 units SQ BID@0700,2200 [facility] Last Admin: 12/24/16 06:24 Dose: 15 units Labetalol HCl (Normodyne -) 200 mg PO TID [facility] Last Admin: 12/24/16 05:46 Dose: 200 mg Losartan Potassium (Cozaar -) 100 mg PO DAILY [facility] Last Admin: 12/24/16 09:57 Dose: 100 mg Metoclopramide HCl (Reglan -) 5 mg PO TIDAC [facility] Last Admin: 12/24/16 06:57 Dose: 5 mg Nifedipine (Procardia Xl -) 30 mg PO BID [facility] Last Admin: 09/21/17 09:57 Dose: 30 mg Oxycodone HCl (Roxicodone -) 10 mg PO Q6H PRN PRN Reason: PAIN LEVEL 6-10 Last Admin: 12/24/16 05:48 Dose: 10 mg Ranitidine HCl (Zantac -) 150 mg PO DAILY [facility] Last Admin: 12/24/16 09:58 Dose: 150 mg Sevelamer Carbonate (Renvela -) 1,600 mg PO TIDCM [facility] Last Admin: 12/24/16 08:37 Dose: 1,600 mg A/P Hyperglycemic Hyperosmolar Nonketotic State resolved Hypertensive Urgency Volume Overload ESRD on HD DM Noncompliance - titrate PO BP meds - glucose control - HD per renal with UF - encourage compliance - DVT prophylaxis
--- NOTE | 2016-12-24 10:50 | DS ---
Physical Examination Vital Signs: Vital Signs Temperature 98.3 F 12/24/16 06:16 Pulse Rate 93 H 12/24/16 06:16 Respiratory Rate 20 12/24/16 06:16 Blood Pressure 142/90 12/24/16 06:16 O2 Sat by Pulse Oximetry (%) 98 12/23/16 21:00 Constitutional: Yes: No Distress, Calm Cardiovascular: Yes: Regular Rate and Rhythm Respiratory: Yes: Diminished Gastrointestinal: Yes: Normal Bowel Sounds, Hepatomegaly. No: Distention, Palpable Mass, Tenderness Edema: Yes (decreased) Labs: CBC, BMP 12/23/16 07:00 12/24/16 06:00 Discharge Summary Reason For Visit: HYPERGLYCEMIA WITHOUR KETOSIS,HYPERVOLEMIA Current Active Problems Diabetic hyperosmolar non-ketotic state (Acute) Elevated liver enzymes (Acute) Gastroparesis (Acute) Leukocytosis (Acute) Liver function abnormality (Acute) ESRD (end stage renal disease) on dialysis (Chronic) Hospital Course: Admitted for DKA - was plcaed on insulin drip her BP was elevated and was on Nicardipine drip-- BP had gotten better Anion gap closed and pt was transferred to regular floor She was seen by Endocrinology , Renal Had HD and also fluid removal Seen by GI for elevated LFT-- sono-- hepatomegaly negative hepatitis profile LFT trending down-- likely related to elevated sugars Pt counselled on diet and fluid restriction She is known to be non compliant with diet continue with meds pt is stable for dc home Condition: Stable - Instructions Referrals: Corey Cassidy MD [Staff Physician] - Disposition: HOME - Home Medications Comprehensive Discharge Medication List: Ambulatory Orders Gabapentin 100 mg PO TID 03/11/16 Clonidine HCl [Catapres -] 0.3 mg PO TID #90 tablet 07/14/16 Hydralazine HCl [Apresoline -] 25 mg PO TID #60 tablet 07/14/16 Labetalol HCl [Normodyne -] 200 mg PO TID #90 tablet 07/14/16 Sevelamer Carbonate [Renvela -] 1,600 mg PO TIDCM #60 tab 07/14/16 Cinacalcet HCl [Sensipar] 60 mg PO DAILY 08/05/16 Oxycodone HCl/Acetaminophen [Percocet 5-325 mg Tablet] 1 tab PO Q6H PRN #60 tablet MDD 4 08/11/16 Nifedipine [Procardia Xl] 30 mg PO BID #0 tab 08/27/16 Acetaminophen [Tylenol .Regular Strength -] 325 mg PO Q6H PRN #0 tablet Insulin Lispro [Humalog Kwikpen U-100] 0 unit SQ TID 12/21/16 Losartan Potassium [Cozaar -] 100 mg PO DAILY 12/21/16 Insulin (Levemir) [Levemir Flexpen -] 15 units SQ BID #5 pen 12/24/16 Metoclopramide HCl [Reglan -] 5 mg PO TIDAC #90 tablet 12/24/16 Metoclopramide HCl [Reglan] 5 mg PO TIDCM 90 Days 12/24/16 Syringe Ndl,Insul U-500,0.5ML [Insulin Syringe] 1 each [facility] BID #120 disp.syrin
[2016-12-24] MEDS: ACETAMINOPHEN 325 MG TABLET (FP) PO PRN (13:45)
--- NOTE | 2016-12-24 16:43 | PN ---
Progress Note (short form) - Note Progress Note: Renal Follow up for ESRD on HD with Volume overload Pt seen and examined during isolated UF no acute complaints tolerating isolated UF avf with good flow, BP high 190/100 Goal UF is 2.5 Vital Signs Temperature 98.1 F 12/24/16 08:15 Pulse Rate 79 12/24/16 15:55 Respiratory Rate 18 12/24/16 15:55 Blood Pressure 154/100 12/24/16 15:55 O2 Sat by Pulse Oximetry (%) 98 12/23/16 21:00 Intake & Output 12/21/16 12/22/16 12/23/16 12/24/16 23:59 23:59 23:59 23:59 Intake Total 609 929 4961 750 Balance 629 433 2575 750 Weight 178 lb 9.191 oz 178 lb 9 oz 175 lb 6 oz Gen: NAD, awake and alert, facial swelling CVS: RRR, No M/R Lungs: CTA, no rales or wheeze Abd: soft NT/ND Ext: 2+ edema in LE CBC, BMP 12/23/16 07:00 12/24/16 06:00 Current Medications Acetaminophen (Tylenol -) 325 mg PO Q6H PRN PRN Reason: PAIN Last Admin: 12/24/16 13:45 Dose: 325 mg Acetaminophen (Tylenol -) 325 mg PO Q6H PRN PRN Reason: PAIN LEVEL 6-10 Cinacalcet (Sensipar -) 60 mg PO DAILY [facility] Last Admin: 12/24/16 09:57 Dose: 60 mg Clonidine (Catapres -) 0.3 mg PO TID [facility] Last Admin: 12/24/16 13:43 Dose: 0.3 mg Gabapentin (Neurontin -) 100 mg PO TID [facility] Last Admin: 12/24/16 13:44 Dose: 100 mg Heparin Sodium (Porcine) (Heparin -) 5,000 unit SQ BID [facility] Last Admin: 12/24/16 10:03 Dose: Not Given Hydralazine HCl (Apresoline -) 25 mg PO TID [facility] Last Admin: 12/24/16 13:43 Dose: 25 mg Insulin Aspart (Novolog Vial Sliding Scale -) 1 vial SQ ACHS [facility] PRN Reason: Protocol Last Admin: 12/24/16 11:08 Dose: Not Given Insulin Detemir (Levemir Vial) 15 units SQ BID@0700,2200 [facility] Last Admin: 12/24/16 06:24 Dose: 15 units Labetalol HCl (Normodyne -) 400 mg PO BID [facility] Losartan Potassium (Cozaar -) 100 mg PO DAILY [facility] Last Admin: 12/24/16 09:57 Dose: 100 mg Metoclopramide HCl (Reglan -) 5 mg PO TIDAC [facility] Last Admin: 12/24/16 11:08 Dose: Not Given Nifedipine (Procardia Xl -) 30 mg PO BID [facility] Last Admin: 12/24/16 09:57 Dose: 30 mg Oxycodone HCl (Roxicodone -) 10 mg PO Q6H PRN PRN Reason: PAIN LEVEL 6-10 Last Admin: 12/24/16 13:44 Dose: 10 mg Ranitidine HCl (Zantac -) 150 mg PO DAILY [facility] Last Admin: 12/24/16 09:58 Dose: 150 mg Sevelamer Carbonate (Renvela -) 1,600 mg PO TIDCM [facility] Last Admin: 12/24/16 12:40 Dose: 1,600 mg A/P 26 year old woman with PMhx of ESRD on HD ([facility], [employer] Wise), DM Type 1, Hypertension, Hx of DVT who presents with complaints of SOB and Volume overload and Hyperglycemia. #ESRD on HD with hypervolemia tolerating isolate UF today counseled pt on importance of salt and fluid restriction as a outpatient will continue aggressive UF as outpatient to resume regular MWF treatment tomorrow as a outpatient #Hypertension Increased Labetalol to 400mg BID continue Losartan, Nifedipine, Clonidine Nathan Vo DO Problem List - Problems (1) Diabetic hyperosmolar non-ketotic state Code(s): E11.00 - TYPE 2 DIAB W HYPROSM W/O NONKET HYPRGLY-HYPROS COMA ([facility]) (2) ESRD (end stage renal disease) on dialysis Code(s): N18.6 - END STAGE RENAL DISEASE Z99.2 - DEPENDENCE ON RENAL DIALYSIS (3) Diabetes mellitus, insulin dependent (IDDM), uncontrolled Code(s): E10.65 - TYPE 1 DIABETES MELLITUS WITH HYPERGLYCEMIA Qualifiers: Diabetes mellitus complication status: with unspecified complications Qualified Code(s): E10.8 - Type 1 diabetes mellitus with unspecified complications; E10.65 - Type 1 diabetes mellitus with hyperglycemia (4) Fluid overload Code(s): E87.70 - FLUID OVERLOAD, UNSPECIFIED Qualifiers: Hypervolemia type: unspecified Qualified Code(s): E87.70 - Fluid overload, unspecified
--- NOTE | 2016-12-24 18:45 | PN ---
GI Progress Note Subjective: appetite improved, no nausea and vomitng, right 5th toe osteomyelitis assocaited with elevated ALP --possibly due underlying osteomyelitis - Objective Vital Signs: Vital Signs Temperature 98.1 F 12/24/16 08:15 Pulse Rate 78 12/24/16 17:10 Respiratory Rate 18 12/24/16 17:10 Blood Pressure 157/102 12/24/16 17:10 O2 Sat by Pulse Oximetry (%) 98 12/23/16 21:00 Constitutional: Well Nourished Eyes: Yes: Conjunctiva Clear HENT: Yes: Atraumatic Neck: Yes: Trachea Midline Cardiovascular: Yes: Regular Rate and Rhythm Respiratory: Yes: CTA Bilaterally ...Palpate: Yes: Soft. No: Firm/Rigid, Guarding, Hepatomegaly, Mass, Pulsatile Mass, Splenomegaly, Tenderness, Tenderness, Epigastium Labs: CBC, BMP 12/23/16 07:00 12/24/16 06:00 INR, PTT INR 1.25 (0.82-1.09) H 12/21/16 08:05 Problem List - Problems (1) Elevated liver enzymes Assessment/Plan: increase in ALP secondary to osteomyelitis R> GGTP if normal most likely ALP secondary to bone disease, ALP isoenzyme if available Code(s): R74.8 - ABNORMAL LEVELS OF OTHER SERUM ENZYMES (2) Gastroparesis Code(s): K31.84 - GASTROPARESIS
[2016-12-25] MEDS: oxyCODONE HCL 5 MG TABLET PO PRN ×4 (00:38→21:12)
[2016-12-25] MEDS: GABAPENTIN 100 MG CAPSULE (FP) PO SCH ×3 (06:09→21:14)
[2016-12-25] MEDS: METOCLOPRAMIDE HCL 10 MG TABLET (FP) PO SCH ×3 (06:09→18:17)
[2016-12-25] MEDS: cloNIDine HCL 0.1 MG TABLET PO SCH ×3 (06:09→21:13)
[2016-12-25] MEDS: hydrALAZINE HCL 25 MG TABLET (FP) PO SCH ×3 (06:09→21:13)
[2016-12-25] MEDS: INSULIN SLIDING SCALE (NOVOLOG) 1 VIAL SQ SCH ×4 (06:14→21:24)
[2016-12-25] MEDS: INSULIN DETEMIR 100 UNITS/ML MDV SQ SCH ×2 (06:24→21:15)
[2016-12-25] MEDS: SEVELAMER CARBONATE 800 MG TAB (FP) PO SCH ×3 (08:28→18:17)
[2016-12-25] MEDS: ACETAMINOPHEN 325 MG TABLET (FP) PO PRN ×2 (08:37→15:09)
--- NOTE | 2016-12-25 10:05 | PN ---
Progress Note, Physician History of Present Illness: comfortable no complains feels well agreeable for str - Current Medication List Current Medications: Active Medications Acetaminophen (Tylenol -) 325 mg PO Q6H PRN PRN Reason: PAIN Last Admin: 12/25/16 08:37 Dose: 325 mg Acetaminophen (Tylenol -) 325 mg PO Q6H PRN PRN Reason: PAIN LEVEL 6-10 Cinacalcet (Sensipar -) 60 mg PO DAILY [facility] Last Admin: 12/24/16 09:57 Dose: 60 mg Clonidine (Catapres -) 0.3 mg PO TID [facility] Last Admin: 12/25/16 06:09 Dose: 0.3 mg Gabapentin (Neurontin -) 100 mg PO TID [facility] Last Admin: 12/25/16 06:09 Dose: 100 mg Heparin Sodium (Porcine) (Heparin -) 5,000 unit SQ BID [facility] Last Admin: 12/24/16 21:15 Dose: Not Given Hydralazine HCl (Apresoline -) 25 mg PO TID [facility] Last Admin: 12/25/16 06:09 Dose: 25 mg Insulin Aspart (Novolog Vial Sliding Scale -) 1 vial SQ ACHS [facility] PRN Reason: Protocol Last Admin: 12/25/16 06:14 Dose: Not Given Insulin Detemir (Levemir Vial) 15 units SQ BID@0700,2200 [facility] Last Admin: 12/25/16 06:24 Dose: 15 units Labetalol HCl (Normodyne -) 400 mg PO BID [facility] Last Admin: 12/24/16 21:10 Dose: 400 mg Losartan Potassium (Cozaar -) 100 mg PO DAILY [facility] Last Admin: 12/24/16 09:57 Dose: 100 mg Metoclopramide HCl (Reglan -) 5 mg PO TIDAC [facility] Last Admin: 12/25/16 06:09 Dose: 5 mg Nifedipine (Procardia Xl -) 30 mg PO BID [facility] Last Admin: 12/24/16 21:10 Dose: 30 mg Oxycodone HCl (Roxicodone -) 10 mg PO Q6H PRN PRN Reason: PAIN LEVEL 6-10 Last Admin: 12/25/16 08:36 Dose: 10 mg Ranitidine HCl (Zantac -) 150 mg PO DAILY [facility] Last Admin: 12/24/16 09:58 Dose: 150 mg Sevelamer Carbonate (Renvela -) 1,600 mg PO TIDCM [facility] Last Admin: 12/25/16 08:28 Dose: 1,600 mg - Objective Vital Signs: Vital Signs Temperature 98.0 F 12/25/16 06:19 Pulse Rate 83 12/25/16 06:19 Respiratory Rate 18 12/25/16 06:19 Blood Pressure 177/104 12/25/16 06:19 O2 Sat by Pulse Oximetry (%) 98 12/24/16 21:00 Constitutional: Yes: No Distress, Calm Eyes: Yes: Conjunctiva Clear Neck: Yes: Supple Cardiovascular: Yes: Regular Rate and Rhythm Respiratory: Yes: CTA Bilaterally Gastrointestinal: Yes: Soft Edema: RLE: Trace Peripheral Pulses WNL: Yes Neurological: Yes: Alert Psychiatric: Yes: Alert Labs: CBC, BMP 12/23/16 07:00 12/24/16 06:00 INR, PTT INR 1.25 (0.82-1.09) H 12/21/16 08:05 Problem List - Problems (1) Diabetic hyperosmolar non-ketotic state Code(s): E11.00 - TYPE 2 DIAB W HYPROSM W/O NONKET HYPRGLY-HYPROS COMA ([facility]) (2) ESRD (end stage renal disease) on dialysis Code(s): N18.6 - END STAGE RENAL DISEASE Z99.2 - DEPENDENCE ON RENAL DIALYSIS (3) Anemia Code(s): D64.9 - ANEMIA, UNSPECIFIED Qualifiers: Folate deficiency anemia type: dietary (4) Diabetes mellitus, insulin dependent (IDDM), uncontrolled Code(s): E10.65 - TYPE 1 DIABETES MELLITUS WITH HYPERGLYCEMIA Qualifiers: Diabetes mellitus complication status: with unspecified complications Qualified Code(s): E10.8 - Type 1 diabetes mellitus with unspecified complications; E10.65 - Type 1 diabetes mellitus with hyperglycemia (5) History of pulmonary embolus (PE) Code(s): Z86.711 - PERSONAL HISTORY OF PULMONARY EMBOLISM (6) Swelling of right lower extremity Code(s): M79.89 - OTHER SPECIFIED SOFT TISSUE DISORDERS Assessment/Plan stable chart reviewed medically stable for d/c when bed available dialysis today
--- NOTE | 2016-12-25 11:19 | PN ---
Progress Note, Physician Chief Complaint: 26 y/o female admitted with h/o shortness of breath, massive fluid overload and hyperosmolar-nonketotic hyperglycemic state. This is one of several similar episodes the patient had. Shehas ESRD, Type 1 Diabetes mellitus, extreme non-compliance by history. The patient seen on dialysis, and UF is well tolerated. Has massive fluid overload still persisting, in spite of daily dialysis in the past days. - Current Medication List Current Medications: Active Medications Acetaminophen (Tylenol -) 325 mg PO Q6H PRN PRN Reason: PAIN Last Admin: 12/25/16 08:37 Dose: 325 mg Acetaminophen (Tylenol -) 325 mg PO Q6H PRN PRN Reason: PAIN LEVEL 6-10 Cinacalcet (Sensipar -) 60 mg PO DAILY [facility] Last Admin: 12/24/16 09:57 Dose: 60 mg Clonidine (Catapres -) 0.3 mg PO TID [facility] Last Admin: 12/25/16 06:09 Dose: 0.3 mg Gabapentin (Neurontin -) 100 mg PO TID [facility] Last Admin: 12/25/16 06:09 Dose: 100 mg Heparin Sodium (Porcine) (Heparin -) 5,000 unit SQ BID [facility] Last Admin: 12/24/16 21:15 Dose: Not Given Hydralazine HCl (Apresoline -) 25 mg PO TID [facility] Last Admin: 12/25/16 06:09 Dose: 25 mg Insulin Aspart (Novolog Vial Sliding Scale -) 1 vial SQ ACHS [facility] PRN Reason: Protocol Last Admin: 12/25/16 06:14 Dose: Not Given Insulin Detemir (Levemir Vial) 15 units SQ BID@0700,2200 [facility] Last Admin: 12/25/16 06:24 Dose: 15 units Labetalol HCl (Normodyne -) 400 mg PO BID [facility] Last Admin: 12/24/16 21:10 Dose: 400 mg Losartan Potassium (Cozaar -) 100 mg PO DAILY [facility] Last Admin: 12/24/16 09:57 Dose: 100 mg Metoclopramide HCl (Reglan -) 5 mg PO TIDAC [facility] Last Admin: 12/25/16 06:09 Dose: 5 mg Nifedipine (Procardia Xl -) 30 mg PO BID [facility] Last Admin: 12/24/16 21:10 Dose: 30 mg Oxycodone HCl (Roxicodone -) 10 mg PO Q6H PRN PRN Reason: PAIN LEVEL 6-10 Last Admin: 12/25/16 08:36 Dose: 10 mg Ranitidine HCl (Zantac -) 150 mg PO DAILY [facility] Last Admin: 12/24/16 09:58 Dose: 150 mg Sevelamer Carbonate (Renvela -) 1,600 mg PO TIDCM [facility] Last Admin: 12/25/16 08:28 Dose: 1,600 mg - Objective Vital Signs: Vital Signs Temperature 98.2 F 12/25/16 10:15 Pulse Rate 85 12/25/16 10:20 Respiratory Rate 18 12/25/16 10:20 Blood Pressure 161/99 12/25/16 10:20 O2 Sat by Pulse Oximetry (%) 98 12/24/16 21:00 Constitutional: Yes: Calm, Mild Distress Eyes: Yes: Conjunctiva Clear HENT: Yes: Atraumatic Neck: Yes: Supple Cardiovascular: Yes: Regular Rate and Rhythm, S1, S2 Respiratory: Yes: CTA Bilaterally Gastrointestinal: Yes: Normal Bowel Sounds, Soft Genitourinary: Yes: Anuria Edema: Yes Edema: LLE: 3+, RLE: 3+ Neurological: Yes: Alert Labs: CBC, BMP 12/23/16 07:00 12/24/16 06:00 INR, PTT INR 1.25 (0.82-1.09) H 12/21/16 08:05 Problem List - Problems (1) Diabetic hyperosmolar non-ketotic state Code(s): E11.00 - TYPE 2 DIAB W HYPROSM W/O NONKET HYPRGLY-HYPROS COMA ([facility]) (2) Leukocytosis Code(s): D72.829 - ELEVATED WHITE BLOOD CELL COUNT, UNSPECIFIED (3) ESRD (end stage renal disease) on dialysis Code(s): N18.6 - END STAGE RENAL DISEASE Z99.2 - DEPENDENCE ON RENAL DIALYSIS (4) Abdominal pain Code(s): R10.9 - UNSPECIFIED ABDOMINAL PAIN (5) Diabetes mellitus, insulin dependent (IDDM), uncontrolled Code(s): E10.65 - TYPE 1 DIABETES MELLITUS WITH HYPERGLYCEMIA Qualifiers: Diabetes mellitus complication status: with unspecified complications Qualified Code(s): E10.8 - Type 1 diabetes mellitus with unspecified complications; E10.65 - Type 1 diabetes mellitus with hyperglycemia (6) Dialysis patient Code(s): Z99.2 - DEPENDENCE ON RENAL DIALYSIS (7) HTN (hypertension) Code(s): I10 - ESSENTIAL (PRIMARY) HYPERTENSION Qualifiers: Hypertension type: essential hypertension Qualified Code(s): I10 - Essential (primary) hypertension Assessment/Plan 26 y/o female, DM1, HTN, ESRD on Dialysis, Admitted with Diabetic hyperosmolar non-ketotic state, and massive fluid overload. Blood Glucose in better level. Had been getting dialysis, but still with significant fluid overload. Plan: Will arrange for another HD tomorrow. UF as much as tolerated. Susie Peter MD
[2016-12-25] MEDS: LOSARTAN POTASSIUM 50 MG TABLET (FP) PO SCH (15:03)
[2016-12-25] MEDS: LABETALOL HCL 200 MG TABLET (FP) PO SCH ×2 (15:05→21:14)
[2016-12-25] MEDS: NIFEdipine E.R. 30 MG TABLET (FP) PO SCH (15:06)
[2016-12-25] MEDS: CINACALCET HCL 30 MG TAB (FP) PO SCH (15:07)
[2016-12-25] MEDS: HEPARIN NA (PORCINE) 5,000 UNITS/ML 1ML VIAL SQ SCH ×3 (15:08→21:20)
[2016-12-25] MEDS: RANITIDINE HCL 150 MG TABLET (FP) PO SCH (15:08)
[2016-12-25] MEDS ORDERED: PT OWN MED DRAWER 7, Y5N ONE (15:13)
[2016-12-25] MEDS ORDERED: diphenhydrAMINE HCL 25 MG CAPSULE (FP) PO PRN (18:09)
[2016-12-25] MEDS ORDERED: INSULIN (NOVOLOG) ASPART 100 UNITS/ML 10ML VIAL ONE (18:11)
[2016-12-25] MEDS: NIFEdipine E.R. 90 MG TABLET (FP) PO SCH (21:16)
[2016-12-26 00:07] LABS: SMOOTH MUSCLE AB 12 Units (0-19)
[2016-12-26] MEDS: oxyCODONE HCL 5 MG TABLET PO PRN ×2 (03:28→12:08)
[2016-12-26] MEDS: hydrALAZINE HCL 25 MG TABLET (FP) PO SCH ×2 (05:11→13:20)
[2016-12-26] MEDS: cloNIDine HCL 0.1 MG TABLET PO SCH ×2 (05:11→13:20)
[2016-12-26] MEDS: GABAPENTIN 100 MG CAPSULE (FP) PO SCH ×2 (05:12→13:20)
[2016-12-26] MEDS: LABETALOL HCL 200 MG TABLET (FP) PO SCH ×2 (05:21→13:21)
[2016-12-26] MEDS: METOCLOPRAMIDE HCL 10 MG TABLET (FP) PO SCH ×2 (06:30→11:12)
[2016-12-26] MEDS: INSULIN DETEMIR 100 UNITS/ML MDV SQ SCH (07:39)
[2016-12-26] MEDS: SEVELAMER CARBONATE 800 MG TAB (FP) PO SCH ×2 (07:40→11:13)
[2016-12-26] MEDS: INSULIN SLIDING SCALE (NOVOLOG) 1 VIAL SQ SCH ×2 (07:41→13:21)
--- NOTE | 2016-12-26 09:57 | PN ---
Progress Note (short form) - Note Progress Note: Vital Signs - 24 hr feeling better wants to be discharged no headaches , SOB 12/25/16 12/25/16 12/25/16 10:15 10:20 10:50 Temperature 98.2 F Pulse Rate 74 85 82 Respiratory 18 18 18 Rate Blood Pressure 164/90 161/99 159/100 12/25/16 12/25/16 12/25/16 11:20 11:50 12:20 Temperature Pulse Rate 82 80 85 Respiratory 18 18 18 Rate Blood Pressure 165/108 180/111 192/116 12/25/16 12/25/16 12/25/16 12:50 13:20 13:50 Temperature Pulse Rate 85 88 86 Respiratory 18 18 18 Rate Blood Pressure 197/117 197/119 180/100 12/25/16 12/25/16 12/25/16 14:20 14:30 14:57 Temperature 98.1 F Pulse Rate 88 86 91 H Respiratory 18 18 18 Rate Blood Pressure 178/102 171/100 198/127 12/25/16 12/25/16 12/25/16 17:01 18:50 21:04 Temperature 99.4 F Pulse Rate 93 H 95 H 95 H Respiratory 20 20 Rate Blood Pressure 182/115 189/97 192/113 12/26/16 12/26/16 12/26/16 02:00 05:09 07:55 Temperature 97.9 F 97.9 F 98.1 F Pulse Rate 85 87 84 Respiratory 20 20 18 Rate Blood Pressure 145/96 147/93 133/86 12/26/16 08:00 Temperature Pulse Rate 81 Respiratory 18 Rate Blood Pressure 121/79 Current Medications Generic Name Dose Route Start Last Admin Trade Name Freq PRN Reason Stop Dose Admin Acetaminophen 325 mg 12/23/16 20:41 12/25/16 15:09 Tylenol - PO 325 mg Q6H PRN Administration PAIN Acetaminophen 325 mg 12/23/16 20:41 Tylenol - PO Q6H PRN PAIN LEVEL 6-10 Cinacalcet 60 mg 12/24/16 10:00 12/25/16 15:07 Sensipar - PO 60 mg DAILY [facility] Administration Clonidine 0.3 mg 12/23/16 22:00 12/26/16 05:11 Catapres - PO 0.3 mg TID [facility] Administration Diphenhydramine HCl 25 mg 12/25/16 18:09 12/25/16 18:47 Benadryl - PO 25 mg Q8H PRN Administration ITCHING Gabapentin 100 mg 12/23/16 22:00 12/26/16 05:12 Neurontin - PO 100 mg TID [facility] Administration Heparin Sodium (Porcine) 5,000 unit 12/23/16 22:00 12/25/16 21:20 Heparin - SQ Not Given BID [facility] Hydralazine HCl 25 mg 12/23/16 22:00 12/26/16 05:11 Apresoline - PO 25 mg TID [facility] Administration Insulin Aspart 1 vial 12/23/16 22:00 12/26/16 07:41 Novolog Vial Sliding Scale - SQ 3 units ACHS [facility] Administration Protocol Insulin Detemir 15 units 12/23/16 22:00 12/26/16 07:39 Levemir Vial SQ 15 units BID@0700,2200 [facility] Administration Labetalol HCl 400 mg 12/25/16 19:00 12/26/16 05:21 Normodyne - PO 400 mg TID [facility] Administration Losartan Potassium 100 mg 12/24/16 10:00 12/25/16 15:03 Cozaar - PO 100 mg DAILY [facility] Administration Metoclopramide HCl 5 mg 12/24/16 07:00 12/26/16 06:30 Reglan - PO 5 mg TIDAC [facility] Administration Nifedipine 90 mg 12/25/16 18:45 12/25/16 21:16 Procardia Xl - PO 90 mg DAILY [facility] Administration Oxycodone HCl 10 mg 12/23/16 20:41 12/26/16 03:28 Roxicodone - PO 10 mg Q6H PRN Administration PAIN LEVEL 6-10 Ranitidine HCl 150 mg 12/24/16 10:00 12/25/16 15:08 Zantac - PO 150 mg DAILY [facility] Administration Sevelamer Carbonate 1,600 mg 12/24/16 08:00 12/26/16 07:40 Renvela - PO 1,600 mg TIDCM [facility] Administration Laboratory Results - last 24 hr 12/24/16 12/25/16 12/25/16 06:00 12:33 16:43 POC Glucometer 115 194 [place] Screen Negative [employer] 12 12/25/16 12/26/16 21:07 05:15 POC Glucometer 131 161 [place] Screen [employer] S1 S2 RRR Lungs decreased Abd- soft, NT Edema+ PLAN meds adjusted BP better controlled Pt will need to get her BP meds prior to dialysis spoke with DR Guevara-- will dc Sensipar as GGT is elevated, dc Tylenol Recheck GGT, CMP in one week, also [facility] will be following pt in [facility] Problem List - Problems (1) ESRD (end stage renal disease) on dialysis Code(s): N18.6 - END STAGE RENAL DISEASE Z99.2 - DEPENDENCE ON RENAL DIALYSIS (2) Anemia Code(s): D64.9 - ANEMIA, UNSPECIFIED Qualifiers: Folate deficiency anemia type: dietary (3) DKA (diabetic ketoacidosis) Code(s): E13.10 - OTH DIABETES MELLITUS WITH KETOACIDOSIS WITHOUT COMA Qualifiers: Diabetes mellitus type: type 1 (4) Fluid overload Code(s): E87.70 - FLUID OVERLOAD, UNSPECIFIED Qualifiers: Hypervolemia type: unspecified Qualified Code(s): E87.70 - Fluid overload, unspecified (5) Liver function abnormality Code(s): K76.89 - OTHER SPECIFIED DISEASES OF LIVER
[2016-12-26] MEDS ORDERED: PT OWN MED DRAWER 7, Y5N ONE (11:04)
[2016-12-26] MEDS: RANITIDINE HCL 150 MG TABLET (FP) PO SCH (11:12)
[2016-12-26] MEDS: LOSARTAN POTASSIUM 50 MG TABLET (FP) PO SCH (11:12)
[2016-12-26] MEDS: CINACALCET HCL 30 MG TAB (FP) PO SCH (11:13)
[2016-12-26] MEDS: HEPARIN NA (PORCINE) 5,000 UNITS/ML 1ML VIAL SQ SCH ×2 (11:14→11:17)
[2016-12-26] MEDS: NIFEdipine E.R. 90 MG TABLET (FP) PO SCH (11:14)
--- NOTE | 2016-12-26 12:37 | PN ---
Progress Note, Physician Chief Complaint: 26 y/o female admitted with h/o shortness of breath, massive fluid overload and hyperosmolar-nonketotic hyperglycemic state. The patient seen on dialysis. Cut her treatment on her own at 2hours 30 mins. Still massively volume overloaded. - Current Medication List Current Medications: Active Medications Acetaminophen (Tylenol -) 325 mg PO Q6H PRN PRN Reason: PAIN Last Admin: 12/25/16 15:09 Dose: 325 mg Acetaminophen (Tylenol -) 325 mg PO Q6H PRN PRN Reason: PAIN LEVEL 6-10 Cinacalcet (Sensipar -) 60 mg PO DAILY [facility] Last Admin: 12/26/16 11:13 Dose: 60 mg Clonidine (Catapres -) 0.3 mg PO TID [facility] Last Admin: 12/26/16 05:11 Dose: 0.3 mg Diphenhydramine HCl (Benadryl -) 25 mg PO Q8H PRN PRN Reason: ITCHING Last Admin: 12/25/16 18:47 Dose: 25 mg Gabapentin (Neurontin -) 100 mg PO TID [facility] Last Admin: 12/26/16 05:12 Dose: 100 mg Heparin Sodium (Porcine) (Heparin -) 5,000 unit SQ BID [facility] Last Admin: 12/26/16 11:17 Dose: Not Given Hydralazine HCl (Apresoline -) 25 mg PO TID [facility] Last Admin: 12/26/16 05:11 Dose: 25 mg Insulin Aspart (Novolog Vial Sliding Scale -) 1 vial SQ ACHS [facility] PRN Reason: Protocol Last Admin: 12/26/16 07:41 Dose: 3 units Insulin Detemir (Levemir Vial) 15 units SQ BID@0700,2200 [facility] Last Admin: 12/26/16 07:39 Dose: 15 units Labetalol HCl (Normodyne -) 400 mg PO TID [facility] Last Admin: 12/26/16 05:21 Dose: 400 mg Losartan Potassium (Cozaar -) 100 mg PO DAILY [facility] Last Admin: 12/26/16 11:12 Dose: 100 mg Metoclopramide HCl (Reglan -) 5 mg PO TIDAC [facility] Last Admin: 12/26/16 11:12 Dose: 5 mg Nifedipine (Procardia Xl -) 90 mg PO DAILY [facility] Last Admin: 12/26/16 11:14 Dose: 90 mg Oxycodone HCl (Roxicodone -) 10 mg PO Q6H PRN PRN Reason: PAIN LEVEL 6-10 Last Admin: 12/26/16 12:08 Dose: 10 mg Ranitidine HCl (Zantac -) 150 mg PO DAILY [facility] Last Admin: 12/26/16 11:12 Dose: 150 mg Sevelamer Carbonate (Renvela -) 1,600 mg PO TIDCM [facility] Last Admin: 12/26/16 11:13 Dose: 1,600 mg - Objective Vital Signs: Vital Signs Temperature 98.1 F 12/26/16 07:55 Pulse Rate 90 12/26/16 10:45 Respiratory Rate 18 12/26/16 10:45 Blood Pressure 174/111 12/26/16 10:45 O2 Sat by Pulse Oximetry (%) 98 12/26/16 09:00 Constitutional: Yes: Well Nourished, Calm, Pallor Eyes: Yes: Conjunctiva Clear HENT: Yes: Atraumatic Neck: Yes: Trachea Midline Cardiovascular: Yes: Regular Rate and Rhythm, S1, S2 Respiratory: Yes: CTA Bilaterally Gastrointestinal: Yes: Normal Bowel Sounds, Soft Musculoskeletal: Yes: Back Pain, Joint Stiffness Edema: Yes Edema: LLE: 2+, RLE: 2+ Neurological: Yes: Alert, Oriented Labs: CBC, BMP 12/23/16 07:00 12/24/16 06:00 INR, PTT INR 1.25 (0.82-1.09) H 12/21/16 08:05 Problem List - Problems (1) Diabetic hyperosmolar non-ketotic state Code(s): E11.00 - TYPE 2 DIAB W HYPROSM W/O NONKET HYPRGLY-HYPROS COMA ([facility]) (2) Leukocytosis Code(s): D72.829 - ELEVATED WHITE BLOOD CELL COUNT, UNSPECIFIED (3) ESRD (end stage renal disease) on dialysis Code(s): N18.6 - END STAGE RENAL DISEASE Z99.2 - DEPENDENCE ON RENAL DIALYSIS (4) Abdominal pain Code(s): R10.9 - UNSPECIFIED ABDOMINAL PAIN (5) Diabetes mellitus, insulin dependent (IDDM), uncontrolled Code(s): E10.65 - TYPE 1 DIABETES MELLITUS WITH HYPERGLYCEMIA Qualifiers: Diabetes mellitus complication status: with unspecified complications Qualified Code(s): E10.8 - Type 1 diabetes mellitus with unspecified complications; E10.65 - Type 1 diabetes mellitus with hyperglycemia (6) Dialysis patient Code(s): Z99.2 - DEPENDENCE ON RENAL DIALYSIS (7) HTN (hypertension) Code(s): I10 - ESSENTIAL (PRIMARY) HYPERTENSION Qualifiers: Hypertension type: essential hypertension Qualified Code(s): I10 - Essential (primary) hypertension Assessment/Plan 26 y/o female, DM1, HTN, ESRD on Dialysis, Admitted with Diabetic hyperosmolar non-ketotic state, and massive fluid overload. Has been getting dialysis, but still with significant fluid overload. Patient cut her treatment today on her own. Plan: Will continue to dialyze and UF until she gets to her Dry weight. Next HD scheduled for Wednesday. Susie Peter MD
[2016-12-26 15:05] VITALS: BP 132/78; PULSE 80; TEMP 97.2
[2016-12-28] MEDS ORDERED: EPOETIN ALFA 10,000 UNIT/1 ML VIAL IVPUSH ONE (12:40)
[2016-12-29 06:07] LABS: HEP B SURFACE AB Reactive (.)
== END 2016-12-26 15:59 | DRG 637 ==
LOC: JER 06:45 → JERBED 10:17 → JICU 11:05 → J8W 12-23 20:35 → J6W 12-23 20:50 → J8W 12-23 21:12
PROVIDERS: ADMIT Internal Medicine; ATTEND Internal Medicine
PROC: 5A1D60Z (ICD-10-PCS; principal; 2016-12-21)
DX: E10.10 Type 1 diabetes mellitus with ketoacidosis without coma (principal); N18.6 End stage renal disease; M86.8X8 Other osteomyelitis, other site; I13.2 Hypertensive heart and chronic kidney disease with heart failure and with stage 5 chronic kidney disease, or end stage renal disease; E10.69 Type 1 diabetes mellitus with other specified complication; M79.89 Other specified soft tissue disorders; D64.9 Anemia, unspecified; K76.89 Other specified diseases of liver; E10.22 Type 1 diabetes mellitus with diabetic chronic kidney disease; D72.828 Other elevated white blood cell count; K21.9 Gastro-esophageal reflux disease without esophagitis; K31.89 Other diseases of stomach and duodenum; E10.43 Type 1 diabetes mellitus with diabetic autonomic (poly)neuropathy; K31.84 Gastroparesis; Z99.2 Dependence on renal dialysis; Z79.4 Long term (current) use of insulin; Z79.01 Long term (current) use of anticoagulants; Z86.711 Personal history of pulmonary embolism; Z87.891 Personal history of nicotine dependence; Z91.14 Patient's other noncompliance with medication regimen; Z86.718 Personal history of other venous thrombosis and embolism; Z86.14 Personal history of Methicillin resistant Staphylococcus aureus infection
CPT/HCPCS: 36415; 71010-TC; 76705-TC; 80048; 80053; 80076; 82009; 82977; 83036; 83516; 83735; 83930; 84100; 84484; 84703; 85025; 85610; 86038; 86704; 86706; 86708; 86803; 87040; 87340; 93005; 93010; 97116-GP; 97162-GP; 99285-25; J1644

== ENCOUNTER 2016-12-30 18:15 | Inpatient (IN) | payer OTHER ==
[2016-12-30 20:20] LABS: MCH 27.3 pg (25.7-33.7); MEAN CELL VOLUME 85.5 fl (80-96); PLATELET COUNT 335 K/MM3 (134-434); RDW 16.9 % (11.6-15.6); WHITE BLOOD COUNT 8.1 K/mm3 (4.0-10.0)
[2016-12-30 20:32] LABS: INR 1.09 (0.82-1.09)
--- NOTE | 2016-12-30 20:43 | PDOC ---
History of Present Illness - General History Source: Patient Exam Limitations: No Limitations - History of Present Illness Initial Comments: 12/30/16 20:30 Patient is a 26F with history of anemia requiring multiple transfusions, IDDM, ESRD (MWF), PE, DVT and recent ICU admission here today complaining of chest pain. The pain has been intermittent over the past three days and is located in the upper right part of her chest. The pain is made worse with inspiration and exertion. There is associated shortness of breath. There is no cough, fever, chills, or vomiting. She also states that her legs have become increasingly swollen and she has not been able to sleep as flat as she does normally, despite getting the same amount of fluid off that she does normally. She is also complaining of generalized pruritus, and has been scratching her skin to the point of drawing blood. She denies recent travel and leg pain. <Piter Red - Last Filed: 12/30/16 21:56> <Tony Belle - Last Filed: 12/30/16 23:12> - General Chief Complaint: Chest Pain Stated Complaint: CHEST PAIN Time Seen by Provider: 12/30/16 19:04 Past History - Past Medical History Anemia: Yes Asthma: No Cancer: No Cardiac Disorders: No CVA: No COPD: No CHF: No Diabetes: Yes (15 yrs Insulin dependent) Dialysis: Yes (M/W/F) Disorders: Yes (ESRD for 6 yrs [facility]-w-) HTN: Yes Hypercholesterolemia: No Kidney Stones: (ESRD, Dialysis Mon, W, F, Left arm Fistula) Seizures: Yes (Several yrs ago, no medication) Thyroid Disease: No - Surgical History Abdominal Surgery: No Cardiac Surgery: Yes (myxoma removed 2013) Cholecystectomy: Yes Lung Surgery: No Neurologic Surgery: No Orthopedic Surgery: Yes - Immunization History Immunization Up to Date: Yes - Suicide/Smoking/Psychosocial Hx Smoking Status: No Smoking History: Never smoked Have you smoked in the past 12 months: No Number of Cigarettes Smoked Daily: 10 Information on smoking cessation initiated: No Hx Alcohol Use: No Drug/Substance Use Hx: No Substance Use Type: None Hx Substance Use Treatment: No <Piter Red - Last Filed: 12/30/16 21:56> <Tony Belle - Last Filed: 12/30/16 23:12> - Past Medical History Allergies/Adverse Reactions: Allergies Allergy/AdvReac Type Severity Reaction Status Date / Time No Known Drug Allergies Allergy Verified 12/21/16 07:06 Home Medications: Ambulatory Orders Gabapentin 100 mg PO TID 03/11/16 Clonidine HCl [Catapres -] 0.3 mg PO TID #90 tablet 07/14/16 Hydralazine HCl [Apresoline -] 25 mg PO TID #60 tablet 07/14/16 Sevelamer Carbonate [Renvela -] 1,600 mg PO TIDCM #60 tab 07/14/16 Oxycodone HCl/Acetaminophen [Percocet 5-325 mg Tablet] 1 tab PO Q6H PRN #60 tablet MDD 4 08/11/16 Acetaminophen [Tylenol .Regular Strength -] 325 mg PO Q6H PRN #0 tablet Insulin Lispro [Humalog Kwikpen U-100] 0 unit SQ TID 12/21/16 Losartan Potassium [Cozaar -] 100 mg PO DAILY 12/21/16 Insulin (Levemir) [Levemir Flexpen -] 15 units SQ BID #5 pen 12/24/16 Metoclopramide HCl [Reglan -] 5 mg PO TIDAC #90 tablet 12/24/16 Metoclopramide HCl [Reglan] 5 mg PO TIDCM 90 Days 12/24/16 Syringe Ndl,Insul U-500,0.5ML [Insulin Syringe] 1 each MC BID #120 disp.syrin Clonidine HCl [Catapres -] 0.3 mg PO TID tablet 12/26/16 Labetalol HCl [Normodyne -] 400 mg PO TID #60 tablet 12/26/16 Nifedipine ER [Procardia XL -] 90 mg PO DAILY #60 tab 12/26/16 Review of Systems - Review of Systems Comments:: 12/30/16 20:43 GENERAL/CONSTITUTIONAL: No fever or chills. No weakness. HEAD, EYES, EARS, NOSE AND THROAT: No change in vision. No ear pain or discharge. No sore throat. CARDIOVASCULAR: Positive for chest pain and shortness of breath RESPIRATORY: No cough, wheezing, or hemoptysis. GASTROINTESTINAL: No nausea, vomiting, diarrhea or constipation. GENITOURINARY: Unable to make urine. MUSCULOSKELETAL: No joint or muscle swelling or pain. No neck or back pain. SKIN: Multiple small wounds in various stages of healing NEUROLOGIC: No headache, vertigo, loss of consciousness, or change in strength/ sensation. HEMATOLOGIC/LYMPHATIC: Positive for history of anemia and blood clots ALLERGIC/IMMUNOLOGIC: No hives or skin allergy. <NedaPiter - Last Filed: 12/30/16 21:56> *Physical Exam - Vital Signs Last Vital Signs Temp Pulse Resp BP Pulse Ox 97.7 F 82 20 185/120 98 12/30/16 19:49 12/30/16 19:49 12/30/16 19:49 12/30/16 19:49 12/30/16 19:49 - Physical Exam Comments: 12/30/16 20:46 GENERAL: Awake, alert, and fully oriented, in no acute distress HEAD: No signs of trauma, normocephalic, atraumatic EYES: PERRLA, EOMI, sclera anicteric, conjunctiva clear ENT: Auricles normal inspection, hearing grossly normal, nares patent, oropharynx clear without exudates. Moist mucosa NECK: Normal ROM, supple, positive for JVD LUNGS: No distress, speaks full sentences, clear to auscultation bilaterally HEART: Regular rate and rhythm, normal S1 and S2, no murmurs, rubs or gallops, peripheral pulses normal and equal bilaterally. ABDOMEN: Soft, nontender, normoactive bowel sounds. No guarding, no rebound. No masses EXTREMITIES: Normal inspection, Normal range of motion, Positive for 2+ edema above knee. Right leg larger than left. No clubbing or cyanosis. RUE fistula with thrill NEUROLOGICAL: Cranial nerves II through XII grossly intact. Normal speech, no focal sensorimotor deficits SKIN: Warm, Dry, normal turgor, no rashes or lesions noted. <NedaPiter - Last Filed: 12/30/16 21:56> - Vital Signs Last Vital Signs Temp Pulse Resp BP Pulse Ox 97.7 F 82 20 185/120 98 12/30/16 19:49 12/30/16 19:49 12/30/16 19:49 12/30/16 19:49 12/30/16 19:49 <Tony Belle - Last Filed: 12/30/16 23:12> ED Treatment Course - LABORATORY CBC & Chemistry Diagram: 12/30/16 20:00 12/30/16 20:00 - ADDITIONAL ORDERS Additional order review: 12/30/16 20:00 RBC 3.54 L MCV 85.5 MCHC 32.0 RDW 16.9 H MPV 10.0 Neutrophils % No Result Required. Lymphocytes % No Result Required. - RADIOLOGY Radiology Studies Ordered: Category Date Time Status CHEST X-RAY PORTABLE* [RAD] Stat Radiology 12/30/16 19:55 Ordered <Piter Red - Last Filed: 12/30/16 21:56> - LABORATORY CBC & Chemistry Diagram: 12/30/16 20:00 12/30/16 20:00 - ADDITIONAL ORDERS Additional order review: Laboratory Results 12/30/16 12/30/16 12/30/16 20:49 20:00 20:00 PT with INR INR D-Dimer 936 H Sodium Potassium Chloride Carbon Dioxide Anion Gap BUN Creatinine Creat Clearance w eGFR Random Glucose Calcium Magnesium Total Bilirubin AST ALT Alkaline Phosphatase Creatine Kinase Creatine Kinase Index CK-MB (CK-2) Troponin I B-Natriuretic Peptide 62484.60 H Total Protein Albumin Serum , Qual Negative 12/30/16 12/30/16 20:00 20:00 PT with INR 12.00 H INR 1.09 D-Dimer Sodium 129 L Potassium 4.2 Chloride 94 L Carbon Dioxide 23 D Anion Gap 12 BUN 35 H D Creatinine 2.8 H Creat Clearance w eGFR 20.27 Random Glucose 285 H D Calcium 8.6 D Magnesium 2.1 D Total Bilirubin 0.6 AST 108 H ALT 76 D Alkaline Phosphatase 1976 H Creatine Kinase 151 Creatine Kinase Index 4.5 CK-MB (CK-2) 6.878 H Troponin I < 0.02 B-Natriuretic Peptide Total Protein 8.9 H D Albumin 3.2 L D Serum , Qual 12/30/16 20:00 RBC 3.54 L MCV 85.5 MCHC 32.0 RDW 16.9 H MPV 10.0 Neutrophils % No Result Required. Lymphocytes % No Result Required. - Medications Given in the ED: ED Medications Discontinued Medications Generic Name Dose Route Start Last Admin Trade Name Freq PRN Reason Stop Dose Admin Clonidine 0.3 mg 12/30/16 20:53 12/30/16 21:06 Catapres - PO 12/30/16 20:54 0.3 mg ONCE ONE Administration Labetalol HCl 20 mg 12/30/16 20:53 12/30/16 21:06 Normodyne Injection - IVPUSH 12/30/16 20:54 20 mg ONCE ONE Administration <Tony Belle - Last Filed: 12/30/16 23:12> Medical Decision Making - Medical Decision Making 12/30/16 21:00 Patient is a 26F with history of anemia requiring multiple transfusions, IDDM, ESRD (MWF), PE, DVT and recent ICU admission here today complaining of chest pain. Vital signs notable for BP of 200/120. Otherwise stable. Patient has not taken home dose of clonidine or labetalol today. Will give .3mg clonidine and 20mg labetalol IV. Differential diagnosis includes, but is not limited to: CHF, PE, ACS, anemia, uremia, pericarditis, pericardial effusion. EKG shows normal sinus rhythm, normal rate, no st elevations or depressions, normal axis. 12/30/16 21:25 Laboratory Tests 12/30/16 12/30/16 12/30/16 20:00 20:00 20:00 WBC 8.1 Hgb 9.7 L Hct 30.3 L Plt Count 335 D Sodium 129 L BUN 35 H D Creatinine 2.8 H Alkaline Phosphatase 1976 H Troponin I < 0.02 B-Natriuretic Peptide 55513.60 H 12/30/16 21:26 Laboratory Tests 12/30/16 20:00 Random Glucose 285 H D CBC shows anemia. Sugar 285, no gap. BNP 43k. Trop neg. Alk phos 1976. Cr 2.8, BUN 35. 12/30/16 21:44 Patient will received dialysis post-contrast. Patient is being evaluated for PE. 12/30/16 21:[address] Calero. Will admit to tele inpatient. CTA pending. Signed out to Dr Belle. <Piter Red - Last Filed: 12/30/16 21:56> *DC/Admit/Observation/Transfer <Piter Red - Last Filed: 12/30/16 21:56> - Discharge Dispostion Admit: Yes <Tony Belle - Last Filed: 12/30/16 23:12> Diagnosis at time of Disposition: ESRD (end stage renal disease) on dialysis Chest pain Qualifiers: Chest pain type: pleurodynia Qualified Code(s): R07.81 - Pleurodynia Pulmonary embolism Qualifiers: Pulmonary embolism type: other Chronicity: acute Acute cor pulmonale presence: without acute cor pulmonale Qualified Code(s): I26.99 - Other pulmonary embolism without acute cor pulmonale HTN (hypertension) Qualifiers: Hypertension type: renovascular hypertension Qualified Code(s): I15.0 - Renovascular hypertension - Discharge Dispostion Condition at time of disposition: Fair - Referrals Referrals: Edna Calero MD [Primary Care Provider] -
[2016-12-30 20:49] LABS: ALBUMIN 3.2 g/dl (3.4-5.0); ANION GAP 12 (8-16); BILIRUBIN,TOTAL 0.6 mg/dL (0.2-1.0); CALCIUM 8.6 mg/dL (8.5-10.1); CO2 23 mmol/L (21-32); CREATININE 2.8 mg/dL (0.55-1.02); GLUCOSE,RANDOM 285 mg/dL (74-106); MAGNESIUM 2.1 mg/dL (1.8-2.4); SGOT/AST 108 U/L (15-37); SGPT/ALT 76 U/L (12-78); TOT PROT 8.9 g/dl (6.4-8.2)
[2016-12-30] MEDS ORDERED: LABETALOL HCL 5 MG/1 ML (100MG/20 ML VIAL) IVPUSH ONE (20:53)
[2016-12-30] MEDS ORDERED: cloNIDine HCL 0.1 MG TABLET PO ONE (20:53)
[2016-12-30] MEDS ORDERED: LABETALOL HCL 5 MG/1 ML (200MG/40ML VIAL) IVPB ONE (21:00)
[2016-12-30] MEDS ORDERED: cloNIDine HCL 0.1 MG TABLET ONE (21:00)
[2016-12-30 21:02] LABS: ALK PHOS 1976 U/L (45-117); CPK 151 IU/L (26-192); TROPONIN I < 0.02 ng/ml (0.00-0.05)
[2016-12-30 21:33] LABS: PLATELET COMMENT2 NO CLOTTING DETECTED; PLATELET ESTIMATE ADEQUATE (NORMAL); TOTAL CELLS COUNTED 100
[2016-12-30] MEDS ORDERED: LABETALOL HCL 100 MG TABLET (FP) ONE (22:51)
[2016-12-30] MEDS ORDERED: hydrALAZINE HCL 25 MG TABLET (FP) ONE (22:51)
[2016-12-30] MEDS ORDERED: GABAPENTIN 100 MG CAPSULE (FP) ONE (22:52)
[2016-12-30] MEDS: GABAPENTIN 100 MG CAPSULE (FP) PO SCH (23:05)
[2016-12-30] MEDS: hydrALAZINE HCL 25 MG TABLET (FP) PO SCH (23:05)
[2016-12-30] MEDS: LABETALOL HCL 200 MG TABLET (FP) PO SCH (23:05)
[2016-12-30] MEDS: INSULIN DETEMIR 100 UNITS/ML MDV SQ SCH (23:05)
[2016-12-30] MEDS: cloNIDine HCL 0.1 MG TABLET PO SCH (23:06)
[2016-12-30] MEDS: INSULIN SLIDING SCALE (NOVOLOG) 1 VIAL SQ SCH (23:06)
--- NOTE | 2016-12-30 23:11 | PDOC ---
Attending Attestation - Resident Resident Name: Piter Red - ED Attending Attestation I have performed the following: I have examined & evaluated the patient, The case was reviewed & discussed with the resident, I agree w/resident's findings & plan, Exceptions are as noted - HPI HPI: 12/30/16 23:07 26-year-old female with history of end-stage renal disease on hemodialysis, diabetes, hypertension, DVT/PE in the past, presents to the ER with atraumatic, pleuritic right-sided chest pain that is exacerbated by deep inhalation. - Physicial Exam PE: 12/30/16 23:08 Patient is awake and alert, edematous, frail-appearing, hypertensive on initial evaluation, in no respiratory distress. nc/atr cta rrr RLE>LLE RUE AV fistula with thrill - Medical Decision Making 12/30/16 23:09 26-year-old female with multiple comorbidities presents with atraumatic, pleuritic right-sided chest pain. Patient was noted to be hypermobility for PE and CTA of chest was obtained. Small subsegmental right lower lobe PE is identified. Will initiate heparin drip with a 5000 unit infusion followed by 800 units an hour drip in normal saline. Dr. Dasilva of renal was consult it and the patient will be dialyzed within the next 24 hours. Will admit to telemetry. Patient is hemodynamically stable at this time. After administration of labetalol and clonidine, patient's blood pressure is noted to be 150/99. Will admit to the telemetry further evaluation and treatment.
[2016-12-30] MEDS ORDERED: HEPARIN INFUSION - 500 ML IVPB ONE (23:51)
[2016-12-31] MEDS: HEPARIN - 25,000 UNIT in SODIUM CHLORIDE 495 ML IV SCH (00:02)
[2016-12-31] MEDS ORDERED: ACETAMINOPHEN 325 MG TABLET (FP) ONE (00:07)
[2016-12-31] MEDS: oxyCODONE HCL 5 MG TABLET PO PRN ×4 (00:09→17:56)
[2016-12-31] MEDS: ACETAMINOPHEN 325 MG TABLET (FP) PO PRN ×4 (00:09→17:59)
[2016-12-31 00:20] LABS: CPK 109 IU/L (26-192); TROPONIN I < 0.02 ng/ml (0.00-0.05)
[2016-12-31 03:40] VITALS: BMI 28.2
[2016-12-31] MEDS ORDERED: FLU VACCINE QUAD 60 MCG/0.5 ML (MDV 17-18) IM ONE (05:09)
[2016-12-31] MEDS ORDERED: PNEUMOC 13-VAL CONJ-DIP CRM/PF 0.5 ML DISP.SYRIN IM ONE (05:12)
[2016-12-31] MEDS: hydrALAZINE HCL 25 MG TABLET (FP) PO SCH ×3 (05:59→21:04)
[2016-12-31] MEDS: cloNIDine HCL 0.1 MG TABLET PO SCH ×3 (05:59→21:03)
[2016-12-31] MEDS: GABAPENTIN 100 MG CAPSULE (FP) PO SCH ×3 (06:00→21:04)
[2016-12-31] MEDS: LABETALOL HCL 200 MG TABLET (FP) PO SCH ×3 (06:00→21:03)
[2016-12-31] MEDS: INSULIN DETEMIR 100 UNITS/ML MDV SQ SCH ×2 (06:12→21:03)
[2016-12-31] MEDS: INSULIN SLIDING SCALE (NOVOLOG) 1 VIAL SQ SCH ×4 (06:13→21:03)
[2016-12-31] MEDS: METOCLOPRAMIDE HCL 10 MG TABLET (FP) PO SCH ×3 (06:13→16:29)
[2016-12-31] MEDS: SEVELAMER CARBONATE 800 MG TAB (FP) PO SCH ×3 (08:29→17:59)
--- NOTE | 2016-12-31 10:02 | HP ---
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 History Source: Patient Limitations to Obtaining History: No Limitations - Past Medical History Cardiovascular: Yes: CHF, HTN, Other (thrombus in atrium, PE, DVT) Pulmonary: Yes: Pulmonary Embolus Renal/: Yes: Renal Failure, Hemodialysis ...LMP: 08/17/14 ...: No Heme/Onc: Yes: Other (atrial myxoma s/p surgical removal. Also has a history of PE ) Infectious Disease: Yes: MRSA (history of bacteremia, recent mrsa foot abscess) Endocrine: Yes: Diabetes Mellitus (type 1 on insulin pump) - Past Surgical History Past Surgical History: Yes: AV Fistula/Graft (Right arm) - Smoking History Smoking history: Never smoked Have you smoked in the past 12 months: No Aproximately how many cigarettes per day: 10 - Alcohol/Substance Use Hx Alcohol Use: No History of Substance Use: reports: None - Social History ADL: Independent Occupation: unemployed History of Recent Travel: No Home Medications - Allergies Allergies/Adverse Reactions: Allergies Allergy/AdvReac Type Severity Reaction Status Date / Time No Known Drug Allergies Allergy Verified 12/21/16 07:06 - Home Medications Home Medications: Ambulatory Orders Gabapentin 100 mg PO TID 03/11/16 Clonidine HCl [Catapres -] 0.3 mg PO TID #90 tablet 07/14/16 Hydralazine HCl [Apresoline -] 25 mg PO TID #60 tablet 07/14/16 Sevelamer Carbonate [Renvela -] 1,600 mg PO TIDCM #60 tab 07/14/16 Oxycodone HCl/Acetaminophen [Percocet 5-325 mg Tablet] 1 tab PO Q6H PRN #60 tablet MDD 4 08/11/16 Acetaminophen [Tylenol .Regular Strength -] 325 mg PO Q6H PRN #0 tablet Insulin Lispro [Humalog Kwikpen U-100] 0 unit SQ TID 12/21/16 Losartan Potassium [Cozaar -] 100 mg PO DAILY 12/21/16 Insulin (Levemir) [Levemir Flexpen -] 15 units SQ BID #5 pen 12/24/16 Metoclopramide HCl [Reglan -] 5 mg PO TIDAC #90 tablet 12/24/16 Metoclopramide HCl [Reglan] 5 mg PO TIDCM 90 Days 12/24/16 Syringe Ndl,Insul U-500,0.5ML [Insulin Syringe] 1 each MC BID #120 disp.syrin Clonidine HCl [Catapres -] 0.3 mg PO TID tablet 12/26/16 Labetalol HCl [Normodyne -] 400 mg PO TID #60 tablet 12/26/16 Nifedipine ER [Procardia XL -] 90 mg PO DAILY #60 tab 12/26/16 Family Disease History - Family Disease History Family Disease History: Diabetes: Grandparent (HTN), Heart Disease: Grandparent , Other: Father (unknown), Mother (HTN) Review of Systems - Review of Systems Constitutional: denies: Chills Cardiovascular: reports: Chest Pain Respiratory: reports: SOB Physical Examination Vital Signs: Vital Signs Temperature 98.4 F 12/31/16 06:00 Pulse Rate 82 12/31/16 06:00 Respiratory Rate 18 12/31/16 06:00 Blood Pressure 200/114 12/31/16 06:00 O2 Sat by Pulse Oximetry (%) 100 12/31/16 04:00 Constitutional: Yes: No Distress Cardiovascular: Yes: Regular Rate and Rhythm, Murmur Respiratory: Yes: Diminished, Rales Gastrointestinal: Yes: Normal Bowel Sounds, Soft. No: Distention, Tenderness Edema: Yes Edema: LLE: 2+, RLE: 2+ Neurological: Yes: Alert, Oriented Psychiatric: Yes: Alert, Oriented Labs: Laboratory Results - last 24 hr 12/30/16 12/30/16 12/30/16 20:00 20:00 20:00 WBC 8.1 RBC 3.54 L Hgb 9.7 L Hct 30.3 L MCV 85.5 MCH 27.3 MCHC 32.0 RDW 16.9 H Plt Count 335 D MPV 10.0 Total Counted 100 Neutrophils % No Result Required. Neutrophils % (Manual) 70 Band Neuts % (Manual) 11 H Lymphocytes % No Result Required. Lymphocytes % (Manual) 8 Monocytes % Monocytes % (Manual) 10 Eosinophils % Eosinophils % (Manual) 1 Basophils % Platelet Estimate Adequate Platelet Comment No clotting detected PT with INR 12.00 H INR 1.09 PTT (Actin FS) D-Dimer Sodium 129 L Potassium 4.2 Chloride 94 L Carbon Dioxide 23 D Anion Gap 12 BUN 35 H D Creatinine 2.8 H Creat Clearance w eGFR 20.27 Random Glucose 285 H D Calcium 8.6 D Magnesium 2.1 D Total Bilirubin 0.6 AST 108 H ALT 76 D Alkaline Phosphatase 1976 H Creatine Kinase 151 Creatine Kinase Index 4.5 CK-MB (CK-2) 6.878 H Troponin I < 0.02 B-Natriuretic Peptide Total Protein 8.9 H D Albumin 3.2 L D Serum , Qual 12/30/16 12/30/16 12/30/16 20:00 20:00 20:49 WBC RBC Hgb Hct MCV MCH MCHC RDW Plt Count MPV Total Counted Neutrophils % Neutrophils % (Manual) Band Neuts % (Manual) Lymphocytes % Lymphocytes % (Manual) Monocytes % Monocytes % (Manual) Eosinophils % Eosinophils % (Manual) Basophils % Platelet Estimate Platelet Comment PT with INR INR PTT (Actin FS) D-Dimer 936 H Sodium Potassium Chloride Carbon Dioxide Anion Gap BUN Creatinine Creat Clearance w eGFR Random Glucose Calcium Magnesium Total Bilirubin AST ALT Alkaline Phosphatase Creatine Kinase Creatine Kinase Index CK-MB (CK-2) Troponin I B-Natriuretic Peptide 86255.60 H Total Protein Albumin Serum , Qual Negative 12/30/16 12/30/16 12/31/16 23:39 23:39 12:00 WBC 7.1 RBC 3.16 L Hgb 8.7 L D Hct 26.9 L MCV 85.1 MCH 27.6 MCHC 32.4 RDW 16.6 H Plt Count 311 MPV 10.0 Total Counted Neutrophils % 63.9 Neutrophils % (Manual) Band Neuts % (Manual) Lymphocytes % 19.4 Lymphocytes % (Manual) Monocytes % 12.5 H Monocytes % (Manual) Eosinophils % 1.9 Eosinophils % (Manual) Basophils % 2.3 H Platelet Estimate Platelet Comment PT with INR INR PTT (Actin FS) 30.4 D-Dimer Sodium Potassium Chloride Carbon Dioxide Anion Gap BUN Creatinine Creat Clearance w eGFR Random Glucose Calcium Magnesium Total Bilirubin AST ALT Alkaline Phosphatase Creatine Kinase 109 Creatine Kinase Index CK-MB (CK-2) Troponin I < 0.02 B-Natriuretic Peptide Total Protein Albumin Serum , Qual 12/31/16 12/31/16 12:00 12:00 WBC RBC Hgb Hct MCV MCH MCHC RDW Plt Count MPV Total Counted Neutrophils % Neutrophils % (Manual) Band Neuts % (Manual) Lymphocytes % Lymphocytes % (Manual) Monocytes % Monocytes % (Manual) Eosinophils % Eosinophils % (Manual) Basophils % Platelet Estimate Platelet Comment PT with INR 11.90 H INR 1.08 PTT (Actin FS) D-Dimer Sodium Potassium Chloride Carbon Dioxide Anion Gap BUN Creatinine Creat Clearance w eGFR Random Glucose Calcium Magnesium Total Bilirubin AST ALT Alkaline Phosphatase Creatine Kinase 86 Creatine Kinase Index CK-MB (CK-2) Troponin I < 0.02 B-Natriuretic Peptide Total Protein Albumin Serum , Qual Imaging - Results Chest X-ray: Image Reviewed (clear) Cat Scan: Report Reviewed EKG: Image Reviewed (NSR) Problem List - Problems (1) Chest pain Code(s): R07.9 - CHEST PAIN, UNSPECIFIED Qualifiers: Chest pain type: pleurodynia Qualified Code(s): R07.81 - Pleurodynia (2) Pulmonary embolism Code(s): I26.99 - OTHER PULMONARY EMBOLISM WITHOUT ACUTE COR PULMONALE Qualifiers: Pulmonary embolism type: other Chronicity: acute Acute cor pulmonale presence: without acute cor pulmonale Qualified Code(s): I26.99 - Other pulmonary embolism without acute cor pulmonale (3) ESRD (end stage renal disease) on dialysis Code(s): N18.6 - END STAGE RENAL DISEASE Z99.2 - DEPENDENCE ON RENAL DIALYSIS (4) HTN (hypertension) Code(s): I10 - ESSENTIAL (PRIMARY) HYPERTENSION Qualifiers: Hypertension type: renovascular hypertension Qualified Code(s): I15.0 - Renovascular hypertension (5) Anemia Code(s): D64.9 - ANEMIA, UNSPECIFIED Qualifiers: Folate deficiency anemia type: dietary Assessment/Plan PLAN on heparin infusion May need to resume Coumadin Monitor H/HCT add Protonix monitor BGM May give BP meds prior to dialysis continue with meds
--- NOTE | 2016-12-31 10:16 | CON.CARD ---
Cardiology Consult (text) - Consultation Consultation Note: cc: cp hpi: 26 f hx esrd on hd, htn, dm, pe/dvt here with cp. Past 3 days pt with right sided cp. Sharp, intermittent through the day, no exertional component, worse with deep breaths. Mild sob as well. No palps, dizzy, loc, pnd, orthopnea, le edema. CTA chest shows small right pe. pmh: per hpi psh: avf social: no tob fam: no premature cad, scd ros: per hpi; no n/v/d, fever, cough, nasal congestion, anaya, vision changes, gib , hematuria, dysuria meds: Vital Signs Period Temp Pulse Resp BP Sys/Ames Pulse Ox Last 24 Hr 97.2 F-99 F 82-86 18-20 181-200/100-124 98-100 nad no jvd rrr s1s2 no mrg ctabl nl eff aaox3 no le e/c/c abd nt nd pos bs pos dp pt no carotid bruits no jaundice diaphoresis Laboratory Last Values WBC 8.1 K/mm3 (4.0-10.0) 12/30/16 20:00 RBC 3.54 M/mm3 (3.60-5.2) L 12/30/16 20:00 Hgb 9.7 GM/dL (10.7-15.3) L 12/30/16 20:00 Hct 30.3 % (32.4-45.2) L 12/30/16 20:00 MCV 85.5 fl (80-96) 12/30/16 20:00 MCH 27.3 pg (25.7-33.7) 12/30/16 20:00 MCHC 32.0 g/dl (32.0-36.0) 12/30/16 20:00 RDW 16.9 % (11.6-15.6) H 12/30/16 20:00 Plt Count 335 K/MM3 (134-434) D 12/30/16 20:00 MPV 10.0 fl (7.5-11.1) 12/30/16 20:00 Total Counted 100 12/30/16 20:00 Neutrophils % No Result Required. 12/30/16 20:00 Neutrophils % (Manual) 70 % (42.8-82.8) 12/30/16 20:00 Band Neuts % (Manual) 11 % (0-10) H 12/30/16 20:00 Lymphocytes % No Result Required. 12/30/16 20:00 Lymphocytes % (Manual) 8 % (8-40) 12/30/16 20:00 Monocytes % (Manual) 10 % (3.8-10.2) 12/30/16 20:00 Eosinophils % (Manual) 1 % (0-4.5) 12/30/16 20:00 Platelet Estimate Adequate (NORMAL) 12/30/16 20:00 Platelet Comment No clumping noted 12/30/16 20:00 Platelet Comment No clotting detected 12/30/16 20:00 PT with INR 12.00 SEC (9.98-11.88) H 12/30/16 20:00 INR 1.09 (0.82-1.09) 12/30/16 20:00 PTT (Actin FS) 30.4 SECONDS (26.9-34.4) 12/30/16 23:39 D-Dimer 936 ng/ml (<200-235) H 12/30/16 20:49 Sodium 129 mmol/L (136-145) L 12/30/16 20:00 Potassium 4.2 mmol/L (3.5-5.1) 12/30/16 20:00 Chloride 94 mmol/L (98-107) L 12/30/16 20:00 Carbon Dioxide 23 mmol/L (21-32) D 12/30/16 20:00 Anion Gap 12 (8-16) 12/30/16 20:00 BUN 35 mg/dL (7-18) H D 12/30/16 20:00 Creatinine 2.8 mg/dL (0.55-1.02) H 12/30/16 20:00 Creat Clearance w eGFR 20.27 (>60) 12/30/16 20:00 Random Glucose 285 mg/dL (74-106) H D 12/30/16 20:00 Calcium 8.6 mg/dL (8.5-10.1) D 12/30/16 20:00 Magnesium 2.1 mg/dL (1.8-2.4) D 12/30/16 20:00 Total Bilirubin 0.6 mg/dL (0.2-1.0) 12/30/16 20:00 AST 108 U/L (15-37) H 12/30/16 20:00 ALT 76 U/L (12-78) D 12/30/16 20:00 Alkaline Phosphatase 1976 U/L (45-117) H 12/30/16 20:00 Creatine Kinase 109 IU/L (26-192) 12/30/16 23:39 Creatine Kinase Index 4.5 % (0.0-5.0) 12/30/16 20:00 CK-MB (CK-2) 6.878 ng/mL (0.5-3.6) H 12/30/16 20:00 Troponin I < 0.02 ng/ml (0.00-0.05) 12/30/16 23:39 B-Natriuretic Peptide 47191.60 pg/ml (5-125) H 12/30/16 20:00 Total Protein 8.9 g/dl (6.4-8.2) H D 12/30/16 20:00 Albumin 3.2 g/dl (3.4-5.0) L D 12/30/16 20:00 Serum , Qual Negative 12/30/16 20:00 cta chest: tiny rll pe, no chf ecg 12/30/16: sr, nl intervals, no ischemic changes tele: sr a/p: 26 f hx esrd on hd, htn, dm, pe/dvt here with cp. cp, PE: -sxs atypical for cardiac cp -ecg, ce's unremarkable, no signs acs -possibly due to PE seen on cta here -cont ac for pe -will check echo esrd: -cont hd per renal htn: -elevated this AM, cont home meds, monitor after HD -if remains high would increase hydralazine next
[2016-12-31] MEDS: NIFEdipine E.R. 90 MG TABLET (FP) PO SCH (10:23)
[2016-12-31] MEDS: LOSARTAN POTASSIUM 50 MG TABLET (FP) PO SCH (10:23)
--- NOTE | 2016-12-31 10:41 | EKG ---
Test Reason : Blood Pressure : / mmHG Vent. Rate : 083 BPM Atrial Rate : 083 BPM P-R Int : 188 ms QRS Dur : 076 ms QT Int : 400 ms P-R-T Axes : 021 -05 057 degrees QTc Int : 470 ms NORMAL SINUS RHYTHM POSSIBLE ANTERIOR INFARCT (CITED ON OR BEFORE 19-AUG-2016) ABNORMAL ECG WHEN COMPARED WITH ECG OF 21-DEC-2016 07:13, CRITERIA FOR INFERIOR INFARCT ARE NO LONGER PRESENT QUESTIONABLE CHANGE IN INITIAL FORCES OF LATERAL LEADS Confirmed by WESLEY SABILLON MD ([id number]) on 12/31/2016 10:41:26 AM Referred By: Confirmed By:WESLEY SABILLON MD
--- NOTE | 2016-12-31 11:01 | CON.NEP ---
Consult Consult Specialty:: Nephrology Referred by:: Dr. Edna Calero Reason for Consultation:: ESRD on HD - History of Present Illness Chief Complaint: Pleuretic chest pain History of Present Illness: This is a 26 year old woman with PMhx of ESRD on Hd (MWF), Hypertension, DM Type 1, Hx of DVT who presents with right sided pleuretic chest pain and found to have a suspected/small PE on CTA and volume expansion. Pt started to develop the pleuretic chest pain yesterday with dialysis. Pt s/p recent admission for fluid overload and hyperglycemia after which she was discharged to a NH. Pt reports ambulating at home. No sob, Chest pain, N/V/D at the present time. Pt is on Tele on heparin gtt. s/p Contrast exposure yesterday with CTA. Pt does not make any significant amount of urine. - History Source History Provided By: Patient Limitations to Obtaining History: No Limitations - Past Medical History Cardio/Vascular: Yes: CHF, HTN, Other (thrombus in heart per echo 11/2013; ? subclavian vein thromboses s/p dialysis catheters in the past) Pulmonary: Yes: Pulmonary Embolus Renal/: Yes: Renal Failure, Hemodialysis ...LMP: 08/17/14 ...: No Infectious Disease: Yes: MRSA (history of bacteremia, recent mrsa foot abscess) Endocrine: Yes: Diabetes Mellitus (type 1 on insulin pump) Additional Medical History: DVT, PE on coumadin - Past Surgical History Past Surgical History: Yes: AV Fistula/Graft (Right arm) - Alcohol/Substance Use Hx Alcohol Use: No History of Substance Use: reports: None - Smoking History Smoking history: Never smoked Have you smoked in the past 12 months: No Aproximately how many cigarettes per day: 10 - Social History Usual Living Arrangement: With Parent ADL: Independent Occupation: unemployed History of Recent Travel: No Home Medications - Allergies Allergies/Adverse Reactions: Allergies Allergy/AdvReac Type Severity Reaction Status Date / Time No Known Drug Allergies Allergy Verified 12/21/16 07:06 - Home Medications Home Medications: Ambulatory Orders Gabapentin 100 mg PO TID 03/11/16 Clonidine HCl [Catapres -] 0.3 mg PO TID #90 tablet 07/14/16 Hydralazine HCl [Apresoline -] 25 mg PO TID #60 tablet 07/14/16 Sevelamer Carbonate [Renvela -] 1,600 mg PO TIDCM #60 tab 07/14/16 Oxycodone HCl/Acetaminophen [Percocet 5-325 mg Tablet] 1 tab PO Q6H PRN #60 tablet MDD 4 08/11/16 Acetaminophen [Tylenol .Regular Strength -] 325 mg PO Q6H PRN #0 tablet Insulin Lispro [Humalog Kwikpen U-100] 0 unit SQ TID 12/21/16 Losartan Potassium [Cozaar -] 100 mg PO DAILY 12/21/16 Insulin (Levemir) [Levemir Flexpen -] 15 units SQ BID #5 pen 12/24/16 Metoclopramide HCl [Reglan -] 5 mg PO TIDAC #90 tablet 12/24/16 Metoclopramide HCl [Reglan] 5 mg PO TIDCM 90 Days 12/24/16 Syringe Ndl,Insul U-500,0.5ML [Insulin Syringe] 1 each MC BID #120 disp.syrin Clonidine HCl [Catapres -] 0.3 mg PO TID tablet 12/26/16 Labetalol HCl [Normodyne -] 400 mg PO TID #60 tablet 12/26/16 Nifedipine ER [Procardia XL -] 90 mg PO DAILY #60 tab 12/26/16 Family Disease History - Family Disease History Family Disease History: Diabetes: Grandparent (HTN), Heart Disease: Grandparent , Other: Father (unknown), Mother (HTN) Review of Systems - Review of Systems Constitutional: reports: No Symptoms Eyes: reports: No Symptoms HENT: reports: No Symptoms Neck: reports: No Symptoms Cardiovascular: reports: Edema, Shortness of Breath Respiratory: reports: No Symptoms, SOB. denies: Cough, Hemoptysis, Orthopnea Gastrointestinal: reports: No Symptoms Genitourinary: reports: No Symptoms Musculoskeletal: reports: No Symptoms Neurological: reports: No Symptoms Endocrine: reports: No Symptoms Hematology/Lymphatic: reports: No Symptoms Nephrology Consult - Height Height: 5 ft 4.8 in - Weight Weight: 168 lb 6.931 oz - BMI Body Mass Index (BMI): 28.2 - Lab Results Anion Gap: Anion Gap Anion Gap 12 (8-16) 12/30/16 20:00 - Imaging Chest X-ray: Report Reviewed Cat Scan: Report Reviewed - Physical Examination Vital Signs: Vital Signs Temperature 98.4 F 12/31/16 06:00 Pulse Rate 82 12/31/16 06:00 Respiratory Rate 18 12/31/16 06:00 Blood Pressure 200/114 12/31/16 06:00 O2 Sat by Pulse Oximetry (%) 100 12/31/16 09:00 Constitutional: Yes: Well Nourished, No Distress, Calm HENT: Yes: Atraumatic, Normocephalic Neck: Yes: Supple Cardiovascular: Yes: Regular Rate and Rhythm, S1, S2. No: JVD, Murmur Respiratory: Yes: Regular, CTA Bilaterally. No: Rales, Rhonchi Gastrointestinal: Yes: Normal Bowel Sounds, Soft. No: Tenderness Renal/: Yes: Anuria Access for Hemodialysis: AV Fistula Edema: Yes Edema: LLE: 1+, RLE: 1+ Peripheral Pulses WNL: Yes Problem List - Problems (1) Chest pain Code(s): R07.9 - CHEST PAIN, UNSPECIFIED Qualifiers: Chest pain type: pleurodynia Qualified Code(s): R07.81 - Pleurodynia (2) Pulmonary embolism Code(s): I26.99 - OTHER PULMONARY EMBOLISM WITHOUT ACUTE COR PULMONALE Qualifiers: Pulmonary embolism type: other Chronicity: acute Acute cor pulmonale presence: without acute cor pulmonale Qualified Code(s): I26.99 - Other pulmonary embolism without acute cor pulmonale (3) ESRD (end stage renal disease) on dialysis Code(s): N18.6 - END STAGE RENAL DISEASE Z99.2 - DEPENDENCE ON RENAL DIALYSIS (4) HTN (hypertension) Code(s): I10 - ESSENTIAL (PRIMARY) HYPERTENSION Qualifiers: Hypertension type: renovascular hypertension Qualified Code(s): I15.0 - Renovascular hypertension (5) Anemia Code(s): D64.9 - ANEMIA, UNSPECIFIED Qualifiers: Folate deficiency anemia type: dietary (6) Diabetes mellitus, insulin dependent (IDDM), uncontrolled Code(s): E10.65 - TYPE 1 DIABETES MELLITUS WITH HYPERGLYCEMIA Qualifiers: Diabetes mellitus complication status: with unspecified complications Qualified Code(s): E10.8 - Type 1 diabetes mellitus with unspecified complications; E10.65 - Type 1 diabetes mellitus with hyperglycemia Assessment/Plan 26 year old woman with PMhx of ESRD on Hd (MWF), Hypertension, DM Type 1, Hx of DVT who presents with right sided pleuretic chest pain and found to have a suspected/small PE on CTA and volume expansion. Pt started to develop the pleuretic chest pain yesterday with dialysis. 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 #ESRD on HD with Fluid overload and contrast exposure s/p dialysis yesterday as an outpatient but will arrange extra treatment today given volume expansion and dye exposure yesterday will resume MWF Hd tomorrow #Insulin dependent DM continue insulin as per primary #Hypertension continue Labetalol, Clondine, Losartan, Nifedpine Can give before HD as BP is very high #CKD related Anemia will continue Epogen with HD Goal Hgb > 10 Thank you will follow Nathan Vo DO Current Medications Acetaminophen (Tylenol -) 325 mg PO Q6H PRN PRN Reason: PAIN Last Admin: 12/31/16 06:01 Dose: 325 mg Acetaminophen (Tylenol -) 325 mg PO Q6H PRN PRN Reason: PAIN Clonidine (Catapres -) 0.3 mg PO TID [facility] Last Admin: 12/31/16 05:59 Dose: 0.3 mg Epoetin Abiel (Procrit -) 6,000 unit IVPUSH ONCE ONE Stop: 12/31/16 11:01 Gabapentin (Neurontin -) 100 mg PO TID [facility] Last Admin: 12/31/16 06:00 Dose: 100 mg Heparin Sodium (Porcine) (Heparin -) 5,000 unit IVPUSH PRN PRN PRN Reason: Heparin Hydralazine HCl (Apresoline -) 25 mg PO TID [facility] Last Admin: 12/31/16 05:59 Dose: 25 mg Heparin Sodium (Porcine) 25, (000 unit/ Sodium Chloride) 500 mls @ 16 mls/hr IV TITR [facility]; 800 UNIT/HR PRN Reason: Protocol Last Titration: 12/31/16 03:41 Dose: 1,000 unit/hr Insulin Aspart (Novolog Vial Sliding Scale -) 1 vial SQ ACHS [facility] PRN Reason: Protocol Last Admin: 12/31/16 06:13 Dose: 2 units Insulin Detemir (Levemir Vial) 15 units SQ BID@0700,2200 [facility] Last Admin: 12/31/16 06:12 Dose: 15 units Labetalol HCl (Normodyne -) 400 mg PO TID [facility] Last Admin: 12/31/16 06:00 Dose: 400 mg Losartan Potassium (Cozaar -) 100 mg PO DAILY [facility] Last Admin: 12/31/16 10:23 Dose: 100 mg Metoclopramide HCl (Reglan -) 5 mg PO TIDAC [facility] Last Admin: 12/31/16 06:13 Dose: Not Given Nifedipine (Procardia Xl -) 90 mg PO DAILY [facility] Last Admin: 12/31/16 10:23 Dose: 90 mg Oxycodone HCl (Roxicodone -) 5 mg PO Q6H PRN PRN Reason: PAIN LEVEL 6-10 Last Admin: 12/31/16 06:00 Dose: 5 mg Pneumococcal 13-Valent Conj Vacc (Prevnar 13 Syringe -) 0.5 ml IM .ONCE ONE Stop: 12/31/16 05:13 Sevelamer Carbonate (Renvela -) 1,600 mg PO TIDCM [facility] Last Admin: 12/31/16 08:29 Dose: 1,600 mg
[2016-12-31] MEDS: EPOETIN ALFA 3,000 UNIT/1 ML ML IVPUSH ONE ×2 (11:53→15:51)
[2016-12-31] MEDS ORDERED: PT OWN MED DRAWER 7, Y5N ONE (12:00)
[2016-12-31 12:35] LABS: BASOPHIL 2.3 % (0-2.0); EOSINOPHIL 1.9 % (0-4.5); MCH 27.6 pg (25.7-33.7); MCHC 32.4 g/dl (32.0-36.0); MEAN CELL VOLUME 85.1 fl (80-96); NEUTROPHILS 63.9 % (42.8-82.8); PLATELET COUNT 311 K/MM3 (134-434); RDW 16.6 % (11.6-15.6); WHITE BLOOD COUNT 7.1 K/mm3 (4.0-10.0)
[2016-12-31 12:49] LABS: INR 1.08 (0.82-1.09); PROTHROMBIN TIME (PATIENT) 11.9 SEC (9.98-11.88)
[2016-12-31 12:58] LABS: ALBUMIN 2.6 g/dl (3.4-5.0); ANION GAP 12 (8-16); CALCIUM 8.3 mg/dL (8.5-10.1); CO2 22 mmol/L (21-32); GLUCOSE,RANDOM 87 mg/dL (74-106)
[2016-12-31 13:03] LABS: CPK 86 IU/L (26-192); TROPONIN I < 0.02 ng/ml (0.00-0.05)
[2016-12-31 13:21] LABS: BILIRUBIN,TOTAL 0.6 mg/dL (0.2-1.0); CPK 86 IU/L (26-192); CREATININE 3.7 mg/dL (0.55-1.02); SGOT/AST 190 U/L (15-37); SGPT/ALT 74 U/L (12-78); TOT PROT 7.6 g/dl (6.4-8.2); TROPONIN I < 0.02 ng/ml (0.00-0.05)
[2016-12-31 13:23] LABS: ALK PHOS 1680 U/L (45-117)
[2016-12-31] MEDS: HEPARIN NA (PORCINE) 5,000 UNITS/ML 1ML VIAL IVPUSH PRN (20:51)
[2016-12-31] MEDS ORDERED: traMADol HCL 50 MG TABLET PO PRN (22:28)
[2017-01-01] MEDS ORDERED: DEXTROSE 50%-WATER 25 GM/50 ML DISP.SYRIN ONE (00:56)
[2017-01-01] MEDS ORDERED: DEXTROSE 50%-WATER 25 GM/50 ML DISP.SYRIN IVPUSH ONE ×2 (01:15→02:15)
[2017-01-01] MEDS: HEPARIN - 25,000 UNIT in SODIUM CHLORIDE 495 ML IV SCH (01:15)
[2017-01-01] MEDS: oxyCODONE HCL 5 MG TABLET PO PRN ×4 (01:15→22:24)
[2017-01-01] MEDS: hydrALAZINE HCL 25 MG TABLET (FP) PO SCH ×3 (06:04→22:22)
[2017-01-01] MEDS: GABAPENTIN 100 MG CAPSULE (FP) PO SCH ×3 (06:04→22:22)
[2017-01-01] MEDS: LABETALOL HCL 200 MG TABLET (FP) PO SCH ×3 (06:04→22:22)
[2017-01-01] MEDS: cloNIDine HCL 0.1 MG TABLET PO SCH ×3 (06:04→22:22)
[2017-01-01] MEDS: INSULIN SLIDING SCALE (NOVOLOG) 1 VIAL SQ SCH ×4 (06:05→22:24)
[2017-01-01] MEDS: INSULIN DETEMIR 100 UNITS/ML MDV SQ SCH ×2 (06:05→22:23)
[2017-01-01] MEDS ORDERED: EPOETIN ALFA 2,000 UNITS/1 ML VIAL IVPUSH ONE (06:30)
[2017-01-01 07:01] LABS: MCH 26.9 pg (25.7-33.7); MCHC 31.4 g/dl (32.0-36.0); MEAN CELL VOLUME 85.9 fl (80-96); PLATELET COUNT 309 K/MM3 (134-434); WHITE BLOOD COUNT 8.1 K/mm3 (4.0-10.0)
[2017-01-01 08:01] LABS: ANION GAP 8 (8-16); CALCIUM 7.8 mg/dL (8.5-10.1); CO2 31 mmol/L (21-32); CREATININE 2.9 mg/dL (0.55-1.02); GLUCOSE,RANDOM 85 mg/dL (74-106); PHOSPHOROUS 2.8 mg/dL (2.5-4.9)
[2017-01-01] MEDS: NIFEdipine E.R. 90 MG TABLET (FP) PO SCH (09:07)
[2017-01-01] MEDS: LOSARTAN POTASSIUM 50 MG TABLET (FP) PO SCH (09:08)
[2017-01-01] MEDS: METOCLOPRAMIDE HCL 10 MG TABLET (FP) PO SCH ×3 (09:08→17:32)
[2017-01-01] MEDS: SEVELAMER CARBONATE 800 MG TAB (FP) PO SCH ×3 (09:08→17:32)
[2017-01-01] MEDS: HEPARIN NA (PORCINE) 5,000 UNITS/ML 1ML VIAL IVPUSH PRN (11:00)
--- NOTE | 2017-01-01 11:04 | PN ---
Progress Note (short form) - Note Progress Note: s: no cp sob palps dizzy o: Vital Signs Period Temp Pulse Resp BP Sys/Ames Pulse Ox Last 24 Hr 97.2 F-98.4 F 78-90 13-21 123-208/79-116 nad no jvd rrr s1s2 no mrg ctabl nl eff aaox3 no le e/c/c abd nt nd pos bs no jaundice diaphoresis Current Medications Generic Name Dose Route Start Last Admin Trade Name Freq PRN Reason Stop Dose Admin Acetaminophen 325 mg 12/30/16 21:41 12/31/16 06:01 Tylenol - PO 325 mg Q6H PRN Administration PAIN Acetaminophen 325 mg 12/30/16 22:13 12/31/16 17:59 Tylenol - PO 325 mg Q6H PRN Administration PAIN Clonidine 0.3 mg 12/30/16 22:00 01/01/17 06:04 Catapres - PO 0.3 mg TID [facility] Administration Gabapentin 100 mg 12/30/16 22:00 01/01/17 06:04 Neurontin - PO 100 mg TID [facility] Administration Heparin Sodium (Porcine) 5,000 unit 12/30/16 23:03 12/31/16 20:51 Heparin - IVPUSH 5,000 unit PRN PRN Administration Heparin Hydralazine HCl 25 mg 12/30/16 22:00 01/01/17 06:04 Apresoline - PO 25 mg TID [facility] Administration Heparin Sodium (Porcine) 25, 500 mls @ 16 mls/hr 12/30/16 23:15 01/01/17 01:15 000 unit/ Sodium Chloride IV 23 mls/hr TITR [facility] Administration Protocol 800 UNIT/HR Insulin Aspart 1 vial 12/30/16 22:00 01/01/17 06:05 Novolog Vial Sliding Scale - SQ Not Given ACHS [facility] Protocol Insulin Detemir 15 units 12/30/16 22:00 01/01/17 06:05 Levemir Vial SQ Not Given BID@0700,2200 [facility] Labetalol HCl 400 mg 12/30/16 22:00 01/01/17 06:04 Normodyne - PO 400 mg TID [facility] Administration Losartan Potassium 100 mg 12/31/16 10:00 01/01/17 09:08 Cozaar - PO 100 mg DAILY [facility] Administration Metoclopramide HCl 5 mg 12/31/16 07:00 01/01/17 09:08 Reglan - PO Not Given TIDAC [facility] Nifedipine 90 mg 12/31/16 10:00 01/01/17 09:07 Procardia Xl - PO 90 mg DAILY [facility] Administration Oxycodone HCl 10 mg 12/31/16 15:44 01/01/17 09:07 Roxicodone - PO 10 mg Q6H PRN Administration PAIN Pneumococcal 13-Valent Conj Vacc 0.5 ml 12/31/16 05:12 Prevnar 13 Syringe - IM 12/31/16 05:13 .ONCE ONE Sevelamer Carbonate 1,600 mg 12/31/16 08:00 01/01/17 09:08 Renvela - PO 1,600 mg TIDCM [facility] Administration Tramadol HCl 50 mg 12/31/16 22:28 12/31/16 22:34 Ultram - PO 50 mg Q4H PRN Administration CBC, BMP 01/01/17 05:30 01/01/17 05:30 cta chest: tiny rll pe, no chf ecg 12/30/16: sr, nl intervals, no ischemic changes tele: sr echo 12/2016: mod lvh, nl lv/rv, mod tr, mod phtn, mild pr, a/p: 26 f hx esrd on hd, htn, dm, pe/dvt here with cp. cp, PE: -sxs atypical for cardiac cp, resolved now -ecg, ce's unremarkable, no signs acs -possibly due to PE seen on cta here -cont ac for pe esrd: -cont hd per renal htn: -if remains high after HD today would increase hydralazine to 50 tid
--- NOTE | 2017-01-01 12:19 | PN ---
Progress Note (short form) - Note Progress Note: patient seen and examined. Chart reviewed Comfortable Had dialysis earlier today Continue to have pain in right thigh --chronic No distress on heparin drip Vital Signs Temp 98.4 F 01/01/17 06:40 Pulse 89 01/01/17 10:50 Resp 18 01/01/17 10:50 BP 167/91 01/01/17 10:50 Pulse Ox 100 12/31/16 09:00 Intake & Output 12/31/16 01/01/17 01/01/17 23:59 11:59 23:59 Intake Total 100 300 Balance 100 300 Weight 164 lb 11.2 oz Intake: Oral 100 300 Other: Voiding Method Toilet Toilet Bowel Movement Yes # Bowel Movements 1 Weight Measurement Method Built in [facility] Active Medications Acetaminophen (Tylenol -) 325 mg PO Q6H PRN PRN Reason: PAIN Last Admin: 12/31/16 06:01 Dose: 325 mg Acetaminophen (Tylenol -) 325 mg PO Q6H PRN PRN Reason: PAIN Last Admin: 12/31/16 17:59 Dose: 325 mg Clonidine (Catapres -) 0.3 mg PO TID [facility] Last Admin: 01/01/17 06:04 Dose: 0.3 mg Gabapentin (Neurontin -) 100 mg PO TID [facility] Last Admin: 01/01/17 06:04 Dose: 100 mg Heparin Sodium (Porcine) (Heparin -) 5,000 unit IVPUSH PRN PRN PRN Reason: Heparin Last Admin: 12/31/16 20:51 Dose: 5,000 unit Hydralazine HCl (Apresoline -) 25 mg PO TID [facility] Last Admin: 01/01/17 06:04 Dose: 25 mg Heparin Sodium (Porcine) 25, (000 unit/ Sodium Chloride) 500 mls @ 16 mls/hr IV TITR [facility]; 800 UNIT/HR PRN Reason: Protocol Last Admin: 01/01/17 01:15 Dose: 23 mls/hr Insulin Aspart (Novolog Vial Sliding Scale -) 1 vial SQ ACHS [facility] PRN Reason: Protocol Last Admin: 01/01/17 11:24 Dose: 6 units Insulin Detemir (Levemir Vial) 15 units SQ BID@0700,2200 [facility] Last Admin: 01/01/17 06:05 Dose: Not Given Labetalol HCl (Normodyne -) 400 mg PO TID [facility] Last Admin: 01/01/17 06:04 Dose: 400 mg Losartan Potassium (Cozaar -) 100 mg PO DAILY [facility] Last Admin: 01/01/17 09:08 Dose: 100 mg Metoclopramide HCl (Reglan -) 5 mg PO TIDAC [facility] Last Admin: 01/01/17 11:25 Dose: Not Given Nifedipine (Procardia Xl -) 90 mg PO DAILY [facility] Last Admin: 01/01/17 09:07 Dose: 90 mg Oxycodone HCl (Roxicodone -) 10 mg PO Q6H PRN PRN Reason: PAIN Last Admin: 01/01/17 09:07 Dose: 10 mg Pneumococcal 13-Valent Conj Vacc (Prevnar 13 Syringe -) 0.5 ml IM .ONCE ONE Stop: 12/31/16 05:13 Sevelamer Carbonate (Renvela -) 1,600 mg PO TIDCM [facility] Last Admin: 01/01/17 11:24 Dose: 1,600 mg Tramadol HCl (Ultram -) 50 mg PO Q4H PRN Last Admin: 12/31/16 22:34 Dose: 50 mg CBC, BMP 01/01/17 05:30 01/01/17 05:30 INR, PTT INR 1.08 (0.82-1.09) 12/31/16 12:00 Physical Examination Constitutional: Yes: No Distress/ comfortable. Cardiovascular: Yes: Regular Rate and Rhythm, Murmur Respiratory: Yes: Diminished at bases Gastrointestinal: Yes: Normal Bowel Sounds, Soft. No: Distention, Tenderness Edema: Yes Edema: LLE: 2+, RLE: 2+ Neurological: Yes: Alert, Oriented Psychiatric: Yes: Alert, Oriented Assessment and plan Clinically better continue present care Pain control Monitor blood counts Started on Coumadin Monitor blood sugar Daily out of bed to chair fall precautions Will follow Discussed with nursing staff Problem List - Problems (1) Pulmonary embolism Code(s): I26.99 - OTHER PULMONARY EMBOLISM WITHOUT ACUTE COR PULMONALE Qualifiers: Pulmonary embolism type: other Chronicity: acute Acute cor pulmonale presence: without acute cor pulmonale Qualified Code(s): I26.99 - Other pulmonary embolism without acute cor pulmonale (2) ESRD (end stage renal disease) on dialysis Code(s): N18.6 - END STAGE RENAL DISEASE Z99.2 - DEPENDENCE ON RENAL DIALYSIS (3) HTN (hypertension) Code(s): I10 - ESSENTIAL (PRIMARY) HYPERTENSION Qualifiers: Hypertension type: renovascular hypertension Qualified Code(s): I15.0 - Renovascular hypertension (4) Anemia Code(s): D64.9 - ANEMIA, UNSPECIFIED Qualifiers: Folate deficiency anemia type: dietary (5) Diabetes mellitus, insulin dependent (IDDM), uncontrolled Code(s): E10.65 - TYPE 1 DIABETES MELLITUS WITH HYPERGLYCEMIA Qualifiers: Diabetes mellitus complication status: with unspecified complications Qualified Code(s): E10.8 - Type 1 diabetes mellitus with unspecified complications; E10.65 - Type 1 diabetes mellitus with hyperglycemia (6) Leg pain, right Code(s): M79.604 - PAIN IN RIGHT LEG
--- NOTE | 2017-01-01 12:46 | PN ---
Progress Note (short form) - Note Progress Note: Renal Follow up for ESRD/Volume overload Pt seen and examined in Tele awake and alert s/p dialysis this am, tolerated 3.5kg UF no acute complaints pleuretic chest pain is now resolved Vital Signs Temperature 98.4 F 01/01/17 06:40 Pulse Rate 89 01/01/17 10:50 Respiratory Rate 18 01/01/17 10:50 Blood Pressure 167/91 01/01/17 10:50 O2 Sat by Pulse Oximetry (%) 100 12/31/16 09:00 Intake & Output 12/29/16 12/30/16 12/31/16 01/01/17 23:59 23:59 23:59 23:59 Intake Total 200 300 Balance 200 300 Weight 145 lb 168 lb 6.931 oz 164 lb 11.2 oz NAD, awake and alert RRR, No M/R Dec BS at lung bases, no rales soft NT/ND 1+ edema in LE, no cyanosis CBC, BMP 01/01/17 05:30 01/01/17 05:30 Laboratory Tests 01/01/17 05:30 Random Glucose 85 Calcium 7.8 L Phosphorus 2.8 Current Medications Acetaminophen (Tylenol -) 325 mg PO Q6H PRN PRN Reason: PAIN Last Admin: 12/31/16 06:01 Dose: 325 mg Acetaminophen (Tylenol -) 325 mg PO Q6H PRN PRN Reason: PAIN Last Admin: 12/31/16 17:59 Dose: 325 mg Clonidine (Catapres -) 0.3 mg PO TID [facility] Last Admin: 01/01/17 06:04 Dose: 0.3 mg Gabapentin (Neurontin -) 100 mg PO TID [facility] Last Admin: 01/01/17 06:04 Dose: 100 mg Heparin Sodium (Porcine) (Heparin -) 5,000 unit IVPUSH PRN PRN PRN Reason: Heparin Last Admin: 12/31/16 20:51 Dose: 5,000 unit Hydralazine HCl (Apresoline -) 25 mg PO TID [facility] Last Admin: 01/01/17 06:04 Dose: 25 mg Heparin Sodium (Porcine) 25, (000 unit/ Sodium Chloride) 500 mls @ 16 mls/hr IV TITR [facility]; 800 UNIT/HR PRN Reason: Protocol Last Admin: 01/01/17 01:15 Dose: 23 mls/hr Insulin Aspart (Novolog Vial Sliding Scale -) 1 vial SQ ACHS [facility] PRN Reason: Protocol Last Admin: 01/01/17 11:24 Dose: 6 units Insulin Detemir (Levemir Vial) 15 units SQ BID@0700,2200 [facility] Last Admin: 01/01/17 06:05 Dose: Not Given Labetalol HCl (Normodyne -) 400 mg PO TID [facility] Last Admin: 01/01/17 06:04 Dose: 400 mg Losartan Potassium (Cozaar -) 100 mg PO DAILY [facility] Last Admin: 01/01/17 09:08 Dose: 100 mg Metoclopramide HCl (Reglan -) 5 mg PO TIDAC [facility] Last Admin: 01/01/17 11:25 Dose: Not Given Nifedipine (Procardia Xl -) 90 mg PO DAILY [facility] Last Admin: 01/01/17 09:07 Dose: 90 mg Oxycodone HCl (Roxicodone -) 10 mg PO Q6H PRN PRN Reason: PAIN Last Admin: 01/01/17 09:07 Dose: 10 mg Pneumococcal 13-Valent Conj Vacc (Prevnar 13 Syringe -) 0.5 ml IM .ONCE ONE Stop: 12/31/16 05:13 Sevelamer Carbonate (Renvela -) 1,600 mg PO TIDCM [facility] Last Admin: 01/01/17 11:24 Dose: 1,600 mg Tramadol HCl (Ultram -) 50 mg PO Q4H PRN Last Admin: 12/31/16 22:34 Dose: 50 mg 26 year old woman with PMhx of ESRD on Hd (MWF), Hypertension, DM Type 1, Hx of DVT who presents with right sided pleuretic chest pain and found to have a suspected/small PE on CTA and volume expansion. Pt started to develop the pleuretic chest pain yesterday with dialysis. #Right sided PE w/o evidence of DVT\ Continue Heparin gtt will need to bridge to [facility]/Pulmonary follow up #ESRD on HD with Fluid overload and contrast exposure tolerated dialysis well today 3.5L was removed will reaccess in AM for need for further UF #Insulin dependent DM continue insulin as per primary #Hypertension continue Labetalol, Clondine, Losartan, Nifedpine #CKD related Anemia will continue Epogen with HD #Renal Osteodystrophy Increase renvela to 3200mg TID with meals Thank you will follow Nathan Vo DO Problem List - Problems (1) Chest pain Code(s): R07.9 - CHEST PAIN, UNSPECIFIED Qualifiers: Chest pain type: pleurodynia Qualified Code(s): R07.81 - Pleurodynia (2) Pulmonary embolism Code(s): I26.99 - OTHER PULMONARY EMBOLISM WITHOUT ACUTE COR PULMONALE Qualifiers: Pulmonary embolism type: other Chronicity: acute Acute cor pulmonale presence: without acute cor pulmonale Qualified Code(s): I26.99 - Other pulmonary embolism without acute cor pulmonale (3) ESRD (end stage renal disease) on dialysis Code(s): N18.6 - END STAGE RENAL DISEASE Z99.2 - DEPENDENCE ON RENAL DIALYSIS (4) HTN (hypertension) Code(s): I10 - ESSENTIAL (PRIMARY) HYPERTENSION Qualifiers: Hypertension type: renovascular hypertension Qualified Code(s): I15.0 - Renovascular hypertension (5) Anemia Code(s): D64.9 - ANEMIA, UNSPECIFIED Qualifiers: Folate deficiency anemia type: dietary (6) Diabetes mellitus, insulin dependent (IDDM), uncontrolled Code(s): E10.65 - TYPE 1 DIABETES MELLITUS WITH HYPERGLYCEMIA Qualifiers: Diabetes mellitus complication status: with unspecified complications Qualified Code(s): E10.8 - Type 1 diabetes mellitus with unspecified complications; E10.65 - Type 1 diabetes mellitus with hyperglycemia
[2017-01-01] MEDS ORDERED: HEPARIN NA (PORCINE) 5,000 UNITS/ML 1ML VIAL IVPUSH PRN (13:28)
[2017-01-01] MEDS: WARFARIN NA 5 MG TABLET (UD) PO SCH (17:32)
[2017-01-01] MEDS ORDERED: PNEUMOC 13-VAL CONJ-DIP CRM/PF 0.5 ML DISP.SYRIN IM ONE (18:27)
[2017-01-02] MEDS: oxyCODONE HCL 5 MG TABLET PO PRN ×3 (04:46→21:34)
[2017-01-02] MEDS: cloNIDine HCL 0.1 MG TABLET PO SCH ×4 (06:57→21:36)
[2017-01-02] MEDS: LABETALOL HCL 200 MG TABLET (FP) PO SCH ×4 (06:57→21:36)
[2017-01-02] MEDS: INSULIN DETEMIR 100 UNITS/ML MDV SQ SCH ×2 (06:58→21:36)
[2017-01-02] MEDS: GABAPENTIN 100 MG CAPSULE (FP) PO SCH ×4 (06:58→21:37)
[2017-01-02] MEDS: METOCLOPRAMIDE HCL 10 MG TABLET (FP) PO SCH ×3 (06:58→15:57)
[2017-01-02] MEDS: hydrALAZINE HCL 25 MG TABLET (FP) PO SCH (06:58)
[2017-01-02] MEDS: INSULIN SLIDING SCALE (NOVOLOG) 1 VIAL SQ SCH ×4 (06:58→21:35)
--- NOTE | 2017-01-02 07:13 | PN ---
Progress Note (short form) - Note Progress Note: Renal Follow up for ESRD/Volume overload Pt seen and examined in Tele awake and alert feels abd fullness from fluid retention no sob, chest pain no N/V/D Vital Signs Temperature 98.6 F 01/02/17 06:00 Pulse Rate 86 01/02/17 06:00 Respiratory Rate 20 01/02/17 06:00 Blood Pressure 140/90 01/02/17 06:00 O2 Sat by Pulse Oximetry (%) 93 L 01/01/17 21:00 Intake & Output 12/30/16 12/31/16 01/01/17 01/02/17 23:59 23:59 23:59 23:59 Intake Total 200 760 522 Balance 200 760 522 Weight 145 lb 168 lb 6.931 oz 164 lb 11.2 oz NAD, awake and alert RRR, No M/R Dec BS at lung bases, no rales soft NT/ND 1+ edema in LE, no cyanosis CBC, BMP 01/01/17 05:30 01/01/17 05:30 Current Medications Acetaminophen (Tylenol -) 325 mg PO Q6H PRN PRN Reason: PAIN Last Admin: 12/31/16 06:01 Dose: 325 mg Acetaminophen (Tylenol -) 325 mg PO Q6H PRN PRN Reason: PAIN Last Admin: 12/31/16 17:59 Dose: 325 mg Clonidine (Catapres -) 0.3 mg PO TID [facility] Last Admin: 01/02/17 06:57 Dose: 0.3 mg Gabapentin (Neurontin -) 100 mg PO TID [facility] Last Admin: 01/02/17 06:58 Dose: 100 mg Heparin Sodium (Porcine) (Heparin -) 5,000 unit IVPUSH PRN PRN PRN Reason: Heparin Last Admin: 01/01/17 11:00 Dose: 5,000 unit Heparin Sodium (Porcine) (Heparin -) 1,000 unit IVPUSH PRN PRN Last Admin: 01/01/17 23:04 Dose: 1,000 unit Hydralazine HCl (Apresoline -) 25 mg PO TID [facility] Last Admin: 01/02/17 06:58 Dose: 25 mg Heparin Sodium (Porcine) 25, (000 unit/ Sodium Chloride) 500 mls @ 16 mls/hr IV TITR [facility]; 800 UNIT/HR PRN Reason: Protocol Last Titration: 01/01/17 23:03 Dose: 1,550 unit/hr Insulin Aspart (Novolog Vial Sliding Scale -) 1 vial SQ ACHS [facility] PRN Reason: Protocol Last Admin: 01/02/17 06:58 Dose: 6 units Insulin Detemir (Levemir Vial) 15 units SQ BID@0700,2200 [facility] Last Admin: 01/02/17 06:58 Dose: 15 units Labetalol HCl (Normodyne -) 400 mg PO TID [facility] Last Admin: 01/02/17 06:57 Dose: 400 mg Losartan Potassium (Cozaar -) 100 mg PO DAILY [facility] Last Admin: 01/01/17 09:08 Dose: 100 mg Metoclopramide HCl (Reglan -) 5 mg PO TIDAC [facility] Last Admin: 01/02/17 06:58 Dose: Not Given Nifedipine (Procardia Xl -) 90 mg PO DAILY [facility] Last Admin: 01/01/17 09:07 Dose: 90 mg Oxycodone HCl (Roxicodone -) 10 mg PO Q6H PRN PRN Reason: PAIN Last Admin: 01/02/17 04:46 Dose: 10 mg Sevelamer Carbonate (Renvela -) 3,200 mg PO TIDCM [facility] Last Admin: 01/01/17 17:32 Dose: 3,200 mg Tramadol HCl (Ultram -) 50 mg PO Q4H PRN Last Admin: 12/31/16 22:34 Dose: 50 mg Warfarin Sodium (Coumadin -) 5 mg PO DAILY@1800 [facility] Last Admin: 01/01/17 17:32 Dose: 5 mg 26 year old woman with PMhx of ESRD on Hd (MWF), Hypertension, DM Type 1, Hx of DVT who presents with right sided pleuretic chest pain and found to have a suspected/small PE on CTA and volume expansion. Pt started to develop the pleuretic chest pain yesterday with dialysis. #Right sided PE w/o evidence of DVT\ Continue Heparin gtt will need to bridge to Coumadin Cardiology/Pulmonary follow up #ESRD on HD with Fluid overload and contrast exposure s/p dialysis yesterday, for isotolated UF today fludi restriction, na restriction trend daily weights #Insulin dependent DM continue insulin as per primary #Hypertension continue Labetalol, Clondine, Losartan, Nifedpine #CKD related Anemia will continue Epogen with HD #Renal Osteodystrophy Increase renvela to 3200mg TID with meals Thank you will follow Nathan Vo DO Problem List - Problems (1) Chest pain Code(s): R07.9 - CHEST PAIN, UNSPECIFIED Qualifiers: Chest pain type: pleurodynia Qualified Code(s): R07.81 - Pleurodynia (2) Pulmonary embolism Code(s): I26.99 - OTHER PULMONARY EMBOLISM WITHOUT ACUTE COR PULMONALE Qualifiers: Pulmonary embolism type: other Chronicity: acute Acute cor pulmonale presence: without acute cor pulmonale Qualified Code(s): I26.99 - Other pulmonary embolism without acute cor pulmonale (3) ESRD (end stage renal disease) on dialysis Code(s): N18.6 - END STAGE RENAL DISEASE Z99.2 - DEPENDENCE ON RENAL DIALYSIS (4) HTN (hypertension) Code(s): I10 - ESSENTIAL (PRIMARY) HYPERTENSION Qualifiers: Hypertension type: renovascular hypertension Qualified Code(s): I15.0 - Renovascular hypertension (5) Anemia Code(s): D64.9 - ANEMIA, UNSPECIFIED Qualifiers: Folate deficiency anemia type: dietary (6) Diabetes mellitus, insulin dependent (IDDM), uncontrolled Code(s): E10.65 - TYPE 1 DIABETES MELLITUS WITH HYPERGLYCEMIA Qualifiers: Diabetes mellitus complication status: with unspecified complications Qualified Code(s): E10.8 - Type 1 diabetes mellitus with unspecified complications; E10.65 - Type 1 diabetes mellitus with hyperglycemia
[2017-01-02 08:00] LABS: MCHC 30.8 g/dl (32.0-36.0); MEAN CELL VOLUME 87.7 fl (80-96); MEAN PLT VOLUME 10.2 fl (7.5-11.1); PLATELET COUNT 303 K/MM3 (134-434); RDW 16.5 % (11.6-15.6); WHITE BLOOD COUNT 9.8 K/mm3 (4.0-10.0)
[2017-01-02 08:14] LABS: INR 1.09 (0.82-1.09)
[2017-01-02 08:30] LABS: ANION GAP 13 (8-16); CALCIUM 7.9 mg/dL (8.5-10.1); CO2 29 mmol/L (21-32)
[2017-01-02 08:34] LABS: PHOSPHOROUS 3.9 mg/dL (2.5-4.9)
[2017-01-02] MEDS ORDERED: PT OWN MED DRAWER 7, Y5N ONE (08:47)
[2017-01-02 08:54] LABS: GLUCOSE,RANDOM 363 mg/dL (74-106)
[2017-01-02] MEDS: SEVELAMER CARBONATE 800 MG TAB (FP) PO SCH ×3 (09:35→16:48)
[2017-01-02] MEDS: LOSARTAN POTASSIUM 50 MG TABLET (FP) PO SCH (09:36)
[2017-01-02] MEDS: NIFEdipine E.R. 90 MG TABLET (FP) PO SCH (09:36)
--- NOTE | 2017-01-02 11:50 | PN ---
Progress Note (short form) - Note Progress Note: pt comfortable wants more pain meds no distress afebrile denies cp/sob. Vital Signs Temp 98.6 F 01/02/17 06:00 Pulse 86 01/02/17 06:00 Resp 20 01/02/17 06:00 BP 140/90 01/02/17 06:00 Pulse Ox 93 L 01/01/17 21:00 Intake & Output 01/01/17 01/01/17 01/02/17 11:59 23:59 11:59 Intake Total 300 460 522 Balance 300 460 522 Weight 164 lb 11.2 oz 161 lb Intake: IV 372 Heparin - 25,000 Unit In 372 Normal Saline - 495 ml @ 800 UNIT/HR 16 mls/hr IV TITR [facility] Rx#:[id number] Oral 300 460 150 Other: Voiding Method Toilet Toilet Weight Measurement Method Built in Bedscale Standing Scale Active Medications Acetaminophen (Tylenol -) 325 mg PO Q6H PRN PRN Reason: PAIN Last Admin: 12/31/16 06:01 Dose: 325 mg Acetaminophen (Tylenol -) 325 mg PO Q6H PRN PRN Reason: PAIN Last Admin: 12/31/16 17:59 Dose: 325 mg Clonidine (Catapres -) 0.3 mg PO TID [facility] Last Admin: 01/02/17 06:57 Dose: 0.3 mg Gabapentin (Neurontin -) 100 mg PO TID [facility] Last Admin: 01/02/17 06:58 Dose: 100 mg Heparin Sodium (Porcine) (Heparin -) 5,000 unit IVPUSH PRN PRN PRN Reason: Heparin Last Admin: 01/01/17 11:00 Dose: 5,000 unit Heparin Sodium (Porcine) (Heparin -) 1,000 unit IVPUSH PRN PRN Last Admin: 01/01/17 23:04 Dose: 1,000 unit Hydralazine HCl (Apresoline -) 25 mg PO TID [facility] Last Admin: 01/02/17 06:58 Dose: 25 mg Heparin Sodium (Porcine) 25, (000 unit/ Sodium Chloride) 500 mls @ 16 mls/hr IV TITR [facility]; 800 UNIT/HR PRN Reason: Protocol Last Titration: 01/01/17 23:03 Dose: 1,550 unit/hr Insulin Aspart (Novolog Vial Sliding Scale -) 1 vial SQ ACHS [facility] PRN Reason: Protocol Last Admin: 01/02/17 06:58 Dose: 6 units Insulin Detemir (Levemir Vial) 15 units SQ BID@0700,2200 [facility] Last Admin: 01/02/17 06:58 Dose: 15 units Labetalol HCl (Normodyne -) 400 mg PO TID [facility] Last Admin: 01/02/17 06:57 Dose: 400 mg Losartan Potassium (Cozaar -) 100 mg PO DAILY [facility] Last Admin: 01/02/17 09:36 Dose: 100 mg Metoclopramide HCl (Reglan -) 5 mg PO TIDAC [facility] Last Admin: 01/02/17 06:58 Dose: Not Given Nifedipine (Procardia Xl -) 90 mg PO DAILY [facility] Last Admin: 01/02/17 09:36 Dose: 90 mg Oxycodone HCl (Roxicodone -) 10 mg PO Q6H PRN PRN Reason: PAIN Last Admin: 01/02/17 04:46 Dose: 10 mg Sevelamer Carbonate (Renvela -) 3,200 mg PO TIDCM [facility] Last Admin: 01/02/17 09:35 Dose: 3,200 mg Tramadol HCl (Ultram -) 50 mg PO Q4H PRN Last Admin: 12/31/16 22:34 Dose: 50 mg Warfarin Sodium (Coumadin -) 5 mg PO DAILY@1800 [facility] Last Admin: 01/01/17 17:32 Dose: 5 mg CBC, BMP 01/02/17 05:30 01/02/17 05:30 INR, PTT INR 1.09 (0.82-1.09) 01/02/17 05:30 Physical Examination Constitutional: Yes: No Distress/ comfortable. Cardiovascular: Yes: Regular Rate and Rhythm, Murmur Respiratory: Yes: Diminished at bases Gastrointestinal: Yes: Normal Bowel Sounds, Soft. No: Distention, Tenderness Edema: Yes Edema:+ 1 Neurological: Yes: Alert, Oriented Psychiatric: Yes: Alert, Oriented Assessment and plan Clinically better continue present care Monitor blood counts Started on Coumadin Monitor blood sugar Daily out of bed to chair fall precautions Will follow Discussed with nursing staff d/c tele monitor inr Problem List - Problems (1) Pulmonary embolism Code(s): I26.99 - OTHER PULMONARY EMBOLISM WITHOUT ACUTE COR PULMONALE Qualifiers: Pulmonary embolism type: other Chronicity: acute Acute cor pulmonale presence: without acute cor pulmonale Qualified Code(s): I26.99 - Other pulmonary embolism without acute cor pulmonale (2) ESRD (end stage renal disease) on dialysis Code(s): N18.6 - END STAGE RENAL DISEASE Z99.2 - DEPENDENCE ON RENAL DIALYSIS (3) HTN (hypertension) Code(s): I10 - ESSENTIAL (PRIMARY) HYPERTENSION Qualifiers: Hypertension type: renovascular hypertension Qualified Code(s): I15.0 - Renovascular hypertension (4) Anemia Code(s): D64.9 - ANEMIA, UNSPECIFIED Qualifiers: Folate deficiency anemia type: dietary (5) Diabetes mellitus, insulin dependent (IDDM), uncontrolled Code(s): E10.65 - TYPE 1 DIABETES MELLITUS WITH HYPERGLYCEMIA Qualifiers: Diabetes mellitus complication status: with unspecified complications Qualified Code(s): E10.8 - Type 1 diabetes mellitus with unspecified complications; E10.65 - Type 1 diabetes mellitus with hyperglycemia (6) Leg pain, right Code(s): M79.604 - PAIN IN RIGHT LEG
--- NOTE | 2017-01-02 12:29 | PN ---
Progress Note, Physician History of Present Illness: No complaints No events No chest pain or dyspena this AM - Current Medication List Current Medications: Active Medications Acetaminophen (Tylenol -) 325 mg PO Q6H PRN PRN Reason: PAIN Last Admin: 12/31/16 06:01 Dose: 325 mg Acetaminophen (Tylenol -) 325 mg PO Q6H PRN PRN Reason: PAIN Last Admin: 12/31/16 17:59 Dose: 325 mg Clonidine (Catapres -) 0.3 mg PO TID [facility] Last Admin: 01/02/17 06:57 Dose: 0.3 mg Gabapentin (Neurontin -) 100 mg PO TID [facility] Last Admin: 01/02/17 06:58 Dose: 100 mg Heparin Sodium (Porcine) (Heparin -) 5,000 unit IVPUSH PRN PRN PRN Reason: Heparin Last Admin: 01/01/17 11:00 Dose: 5,000 unit Heparin Sodium (Porcine) (Heparin -) 1,000 unit IVPUSH PRN PRN Last Admin: 01/01/17 23:04 Dose: 1,000 unit Hydralazine HCl (Apresoline -) 25 mg PO TID [facility] Last Admin: 01/02/17 06:58 Dose: 25 mg Heparin Sodium (Porcine) 25, (000 unit/ Sodium Chloride) 500 mls @ 16 mls/hr IV TITR [facility]; 800 UNIT/HR PRN Reason: Protocol Last Titration: 01/01/17 23:03 Dose: 1,550 unit/hr Insulin Aspart (Novolog Vial Sliding Scale -) 1 vial SQ ACHS [facility] PRN Reason: Protocol Last Admin: 01/02/17 12:05 Dose: Not Given Insulin Detemir (Levemir Vial) 15 units SQ BID@0700,2200 [facility] Last Admin: 01/02/17 06:58 Dose: 15 units Labetalol HCl (Normodyne -) 400 mg PO TID [facility] Last Admin: 01/02/17 06:57 Dose: 400 mg Losartan Potassium (Cozaar -) 100 mg PO DAILY [facility] Last Admin: 01/02/17 09:36 Dose: 100 mg Metoclopramide HCl (Reglan -) 5 mg PO TIDAC [facility] Last Admin: 01/02/17 12:05 Dose: Not Given Nifedipine (Procardia Xl -) 90 mg PO DAILY [facility] Last Admin: 01/02/17 09:36 Dose: 90 mg Oxycodone HCl (Roxicodone -) 10 mg PO Q6H PRN PRN Reason: PAIN Last Admin: 01/02/17 12:07 Dose: 10 mg Sevelamer Carbonate (Renvela -) 3,200 mg PO TIDCM [facility] Last Admin: 01/02/17 12:05 Dose: Not Given Tramadol HCl (Ultram -) 50 mg PO Q4H PRN Last Admin: 12/31/16 22:34 Dose: 50 mg Warfarin Sodium (Coumadin -) 5 mg PO DAILY@1800 [facility] Last Admin: 01/01/17 17:32 Dose: 5 mg - Objective Vital Signs: Vital Signs Temperature 98.0 F 01/02/17 10:00 Pulse Rate 87 01/02/17 10:00 Respiratory Rate 20 01/02/17 10:00 Blood Pressure 153/104 01/02/17 10:00 O2 Sat by Pulse Oximetry (%) 96 01/02/17 09:00 Constitutional: Yes: No Distress, Calm Eyes: Yes: WNL, Conjunctiva Clear HENT: Yes: WNL Neck: Yes: WNL Cardiovascular: Yes: WNL, Regular Rate and Rhythm Respiratory: Yes: WNL, CTA Bilaterally Extremities: Yes: WNL Edema: Yes Edema: LUE: Trace, RUE: Trace Labs: CBC, BMP 01/02/17 05:30 01/02/17 05:30 INR, PTT INR 1.09 (0.82-1.09) 01/02/17 05:30 Assessment/Plan a/p: 26 f hx esrd on hd, htn, dm, pe/dvt here with cp. cp, PE: -No further CP -ecg, ce's unremarkable, no signs acs -possibly due to PE seen on cta here -cont ac for pe esrd: -cont hd per renal htn: -Remains elevated will increase hydralazine to 50 tid
[2017-01-02] MEDS: hydrALAZINE HCL 50 MG TABLET (FP) PO SCH ×3 (13:48→21:36)
[2017-01-02] MEDS: WARFARIN NA 5 MG TABLET (UD) PO SCH ×2 (16:58→16:59)
[2017-01-02] MEDS: HEPARIN - 25,000 UNIT in SODIUM CHLORIDE 495 ML IV SCH (18:00)
--- NOTE | 2017-01-02 18:33 | CONSULT ---
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, PE, DVT) Pulmonary: Yes: Pulmonary Embolus Renal/: Yes: Renal Failure, Hemodialysis ...LMP: 08/17/14 ...: No Infectious Disease: Yes: MRSA (history of bacteremia, recent mrsa foot abscess) Endocrine: Yes: Diabetes Mellitus (type 1 on insulin pump) Additional Medical History: DVT, PE on coumadin - Past Surgical History Past Surgical History: Yes: AV Fistula/Graft (Right arm) - Alcohol/Substance Use Hx Alcohol Use: No History of Substance Use: reports: None - Smoking History Smoking history: Never smoked Have you smoked in the past 12 months: No Aproximately how many cigarettes per day: 10 - Social History Usual Living Arrangement: With Parent ADL: Independent Occupation: unemployed History of Recent Travel: No Home Medications - Allergies Allergies/Adverse Reactions: Allergies Allergy/AdvReac Type Severity Reaction Status Date / Time No Known Drug Allergies Allergy Verified 12/21/16 07:06 - Home Medications Home Medications: Ambulatory Orders Gabapentin 100 mg PO TID 03/11/16 Clonidine HCl [Catapres -] 0.3 mg PO TID #90 tablet 07/14/16 Hydralazine HCl [Apresoline -] 25 mg PO TID #60 tablet 07/14/16 Sevelamer Carbonate [Renvela -] 1,600 mg PO TIDCM #60 tab 07/14/16 Oxycodone HCl/Acetaminophen [Percocet 5-325 mg Tablet] 1 tab PO Q6H PRN #60 tablet MDD 4 08/11/16 Acetaminophen [Tylenol .Regular Strength -] 325 mg PO Q6H PRN #0 tablet Insulin Lispro [Humalog Kwikpen U-100] 0 unit SQ TID 12/21/16 Losartan Potassium [Cozaar -] 100 mg PO DAILY 12/21/16 Insulin (Levemir) [Levemir Flexpen -] 15 units SQ BID #5 pen 12/24/16 Metoclopramide HCl [Reglan -] 5 mg PO TIDAC #90 tablet 12/24/16 Metoclopramide HCl [Reglan] 5 mg PO TIDCM 90 Days 12/24/16 Syringe Ndl,Insul U-500,0.5ML [Insulin Syringe] 1 each MC BID #120 disp.syrin Clonidine HCl [Catapres -] 0.3 mg PO TID tablet 12/26/16 Labetalol HCl [Normodyne -] 400 mg PO TID #60 tablet 12/26/16 Nifedipine ER [Procardia XL -] 90 mg PO DAILY #60 tab 12/26/16 Family Disease History - Family Disease History Family Disease History: Diabetes: Grandparent (HTN), Heart Disease: Grandparent , Other: Father (unknown), Mother (HTN) Physical Exam Vital Signs: Vital Signs Temperature 98.1 F 01/02/17 14:00 Pulse Rate 80 01/02/17 15:00 Respiratory Rate 18 01/02/17 15:00 Blood Pressure 145/70 01/02/17 15:00 O2 Sat by Pulse Oximetry (%) 96 01/02/17 09:00 Extremities: Yes: Other (left 2nd and 3rd toes at dorsal dipj have dry escar from previous abrasion with no edema, erythema, drainage and normal foot temp.) Peripheral Pulses WNL: Yes (pedal pulses +2/4 bilateral) Labs: CBC, BMP 01/02/17 05:30 01/02/17 05:30 Assessment/Plan Assessment Normal Pedal pulses Dry abrasions of the left distal dorsal 2nd and 3rd toes without signs of infection or adverse symptoms No danger to feet Plan Recommend betadine dressings to toes. Patient will follow in my office after discharge from hospital Thank you for seeking my consultation Ashish Tejada DPM
[2017-01-03] MEDS: HEPARIN - 25,000 UNIT in SODIUM CHLORIDE 495 ML IV SCH (00:06)
[2017-01-03] MEDS: HEPARIN NA (PORCINE) 5,000 UNITS/ML 1ML VIAL IVPUSH PRN (00:07)
[2017-01-03] MEDS: cloNIDine HCL 0.1 MG TABLET PO SCH ×3 (05:56→21:25)
[2017-01-03] MEDS: GABAPENTIN 100 MG CAPSULE (FP) PO SCH ×3 (05:56→21:24)
[2017-01-03] MEDS: LABETALOL HCL 200 MG TABLET (FP) PO SCH ×3 (05:56→21:24)
[2017-01-03] MEDS: oxyCODONE HCL 5 MG TABLET PO PRN ×4 (05:57→20:46)
[2017-01-03] MEDS: hydrALAZINE HCL 50 MG TABLET (FP) PO SCH ×3 (05:58→21:24)
[2017-01-03] MEDS: INSULIN SLIDING SCALE (NOVOLOG) 1 VIAL SQ SCH ×4 (06:23→21:25)
[2017-01-03] MEDS: METOCLOPRAMIDE HCL 10 MG TABLET (FP) PO SCH ×3 (06:24→18:17)
[2017-01-03] MEDS: INSULIN DETEMIR 100 UNITS/ML MDV SQ SCH ×2 (06:44→21:25)
[2017-01-03 07:36] LABS: ANION GAP 12 (8-16); CALCIUM 8.2 mg/dL (8.5-10.1); CO2 30 mmol/L (21-32); CREATININE 4.1 mg/dL (0.55-1.02); GLUCOSE,RANDOM 118 mg/dL (74-106)
[2017-01-03 07:47] LABS: INR 1.12 (0.82-1.09); PROTHROMBIN TIME (PATIENT) 12.3 SEC (9.98-11.88)
[2017-01-03] MEDS: NIFEdipine E.R. 90 MG TABLET (FP) PO SCH (09:04)
[2017-01-03] MEDS: LOSARTAN POTASSIUM 50 MG TABLET (FP) PO SCH (09:04)
[2017-01-03] MEDS: SEVELAMER CARBONATE 800 MG TAB (FP) PO SCH ×3 (09:04→18:17)
[2017-01-03] MEDS: ACETAMINOPHEN 325 MG TABLET (FP) PO PRN ×2 (11:56→16:16)
--- NOTE | 2017-01-03 15:03 | PN ---
Progress Note (short form) - Note Progress Note: pt comfortable wants more pain meds-- says not lasting long-- c/c-- pain/ burning in both legs. no distress afebrile denies cp/sob. podiatry consult noted/ appreciated. Active Medications Acetaminophen (Tylenol -) 325 mg PO Q6H PRN PRN Reason: PAIN Last Admin: 01/03/17 11:56 Dose: 325 mg Acetaminophen (Tylenol -) 325 mg PO Q6H PRN PRN Reason: PAIN Last Admin: 12/31/16 17:59 Dose: 325 mg Clonidine (Catapres -) 0.3 mg PO TID [facility] Last Admin: 01/03/17 14:19 Dose: 0.3 mg Gabapentin (Neurontin -) 200 mg PO TID [facility] Heparin Sodium (Porcine) (Heparin -) 5,000 unit IVPUSH PRN PRN PRN Reason: Heparin Last Admin: 01/03/17 00:07 Dose: 5,000 unit Heparin Sodium (Porcine) (Heparin -) 1,000 unit IVPUSH PRN PRN Last Admin: 01/01/17 23:04 Dose: 1,000 unit Hydralazine HCl (Apresoline -) 50 mg PO TID [facility] Last Admin: 01/03/17 14:18 Dose: 50 mg Heparin Sodium (Porcine) 25, (000 unit/ Sodium Chloride) 500 mls @ 16 mls/hr IV TITR [facility]; 800 UNIT/HR PRN Reason: Protocol Last Admin: 01/03/17 00:06 Dose: 34 mls/hr Insulin Aspart (Novolog Vial Sliding Scale -) 1 vial SQ ACHS [facility] PRN Reason: Protocol Last Admin: 01/03/17 11:51 Dose: Not Given Insulin Detemir (Levemir Vial) 15 units SQ BID@0700,2200 [facility] Last Admin: 01/03/17 06:44 Dose: 15 units Labetalol HCl (Normodyne -) 400 mg PO TID [facility] Last Admin: 01/03/17 14:19 Dose: 400 mg Losartan Potassium (Cozaar -) 100 mg PO DAILY [facility] Last Admin: 01/03/17 09:04 Dose: 100 mg Metoclopramide HCl (Reglan -) 5 mg PO TIDAC [facility] Last Admin: 01/03/17 11:51 Dose: Not Given Nifedipine (Procardia Xl -) 90 mg PO DAILY [facility] Last Admin: 01/03/17 09:04 Dose: 90 mg Oxycodone HCl (Roxicodone -) 10 mg PO Q4H PRN PRN Reason: PAIN Sevelamer Carbonate (Renvela -) 3,200 mg PO TIDCM [facility] Last Admin: 01/03/17 12:50 Dose: 3,200 mg Warfarin Sodium (Coumadin -) 5 mg PO DAILY@1800 [facility] Last Admin: 01/02/17 16:59 Dose: 5 mg CBC, BMP 01/02/17 05:30 01/03/17 05:25 Vital Signs Temp 98.4 F 01/03/17 10:00 Pulse 83 01/03/17 10:00 Resp 22 01/03/17 10:00 BP 179/97 01/03/17 10:00 Pulse Ox 98 01/03/17 09:00 Intake & Output 01/02/17 01/03/17 01/03/17 23:59 11:59 23:59 Intake Total 1160 733 Balance 1160 733 Intake: IV 350 393 Heparin - 25,000 Unit In 350 393 Normal Saline - 495 ml @ 800 UNIT/HR 16 mls/hr IV TITR [facility] Rx#:[id number] Oral 810 340 Other: Voiding Method Toilet Toilet # Unmeasured Voids Void 1 1 INR, PTT INR 1.12 (0.82-1.09) 01/03/17 06:00 Physical Examination Constitutional: Yes: No Distress/ comfortable. Cardiovascular: Yes: Regular Rate and Rhythm, Murmur Respiratory: Yes: Diminished at bases Gastrointestinal: Yes: Normal Bowel Sounds, Soft. No: Distention, Tenderness Edema: Yes Edema:+ 1 Neurological: Yes: Alert, Oriented Psychiatric: Yes: Alert, Oriented Assessment and plan Clinically better continue present care Monitor blood counts Started on Coumadin-- extra dose today Monitor blood sugar Daily out of bed to chair fall precautions increase oxy/ gurjit will follow Problem List - Problems (1) Pulmonary embolism Code(s): I26.99 - OTHER PULMONARY EMBOLISM WITHOUT ACUTE COR PULMONALE Qualifiers: Pulmonary embolism type: other Chronicity: acute Acute cor pulmonale presence: without acute cor pulmonale Qualified Code(s): I26.99 - Other pulmonary embolism without acute cor pulmonale; I26.99 - Other pulmonary embolism without acute cor pulmonale; I26.99 - Other pulmonary embolism without acute cor pulmonale; I26.99 - Other pulmonary embolism without acute cor pulmonale (2) ESRD (end stage renal disease) on dialysis Code(s): N18.6 - END STAGE RENAL DISEASE Z99.2 - DEPENDENCE ON RENAL DIALYSIS (3) HTN (hypertension) Code(s): I10 - ESSENTIAL (PRIMARY) HYPERTENSION Qualifiers: Hypertension type: renovascular hypertension Qualified Code(s): I15.0 - Renovascular hypertension; I15.0 - Renovascular hypertension; I15.0 - Renovascular hypertension (4) Anemia Code(s): D64.9 - ANEMIA, UNSPECIFIED Qualifiers: Folate deficiency anemia type: dietary (5) Diabetes mellitus, insulin dependent (IDDM), uncontrolled Code(s): E10.65 - TYPE 1 DIABETES MELLITUS WITH HYPERGLYCEMIA Qualifiers: Diabetes mellitus complication status: with unspecified complications Qualified Code(s): E10.8 - Type 1 diabetes mellitus with unspecified complications; E10.8 - Type 1 diabetes mellitus with unspecified complications; E10.8 - Type 1 diabetes mellitus with unspecified complications; E10.8 - Type 1 diabetes mellitus with unspecified complications; E10.65 - Type 1 diabetes mellitus with hyperglycemia; E10.65 - Type 1 diabetes mellitus with hyperglycemia; E10.65 - Type 1 diabetes mellitus with hyperglycemia; E10.65 - Type 1 diabetes mellitus with hyperglycemia (6) Leg pain, right Code(s): M79.604 - PAIN IN RIGHT LEG
--- NOTE | 2017-01-03 16:19 | PN ---
Progress Note (short form) - Note Progress Note: CC: cp s: no cp palps dizzy, states sob/le edema slightly worse today. o: Current Medications Acetaminophen (Tylenol -) 325 mg PO Q6H PRN PRN Reason: PAIN Last Admin: 01/03/17 11:56 Dose: 325 mg Acetaminophen (Tylenol -) 325 mg PO Q6H PRN PRN Reason: PAIN Last Admin: 12/31/16 17:59 Dose: 325 mg Clonidine (Catapres -) 0.3 mg PO TID [facility] Last Admin: 01/03/17 14:19 Dose: 0.3 mg Gabapentin (Neurontin -) 200 mg PO TID [facility] Heparin Sodium (Porcine) (Heparin -) 5,000 unit IVPUSH PRN PRN PRN Reason: Heparin Last Admin: 01/03/17 00:07 Dose: 5,000 unit Heparin Sodium (Porcine) (Heparin -) 1,000 unit IVPUSH PRN PRN Last Admin: 01/01/17 23:04 Dose: 1,000 unit Hydralazine HCl (Apresoline -) 50 mg PO TID [facility] Last Admin: 01/03/17 14:18 Dose: 50 mg Heparin Sodium (Porcine) 25, (000 unit/ Sodium Chloride) 500 mls @ 16 mls/hr IV TITR [facility]; 800 UNIT/HR PRN Reason: Protocol Last Admin: 01/03/17 00:06 Dose: 34 mls/hr Insulin Aspart (Novolog Vial Sliding Scale -) 1 vial SQ ACHS [facility] PRN Reason: Protocol Last Admin: 01/03/17 11:51 Dose: Not Given Insulin Detemir (Levemir Vial) 15 units SQ BID@0700,2200 [facility] Last Admin: 01/03/17 06:44 Dose: 15 units Labetalol HCl (Normodyne -) 400 mg PO TID [facility] Last Admin: 01/03/17 14:19 Dose: 400 mg Losartan Potassium (Cozaar -) 100 mg PO DAILY [facility] Last Admin: 01/03/17 09:04 Dose: 100 mg Metoclopramide HCl (Reglan -) 5 mg PO TIDAC [facility] Last Admin: 01/03/17 11:51 Dose: Not Given Nifedipine (Procardia Xl -) 90 mg PO DAILY [facility] Last Admin: 01/03/17 09:04 Dose: 90 mg Oxycodone HCl (Roxicodone -) 10 mg PO Q4H PRN PRN Reason: PAIN Sevelamer Carbonate (Renvela -) 3,200 mg PO TIDCM [facility] Last Admin: 01/03/17 12:50 Dose: 3,200 mg Warfarin Sodium (Coumadin -) 5 mg PO DAILY@1800 [facility] Last Admin: 01/02/17 16:59 Dose: 5 mg Warfarin Sodium (Coumadin -) 3 mg PO ONCE@1800 ONE Stop: 01/03/17 18:01 Vital Signs - 24 hr 01/02/17 01/02/17 01/02/17 18:00 21:00 22:00 Temperature 97.8 F Pulse Rate 86 Respiratory 18 18 Rate Blood Pressure 148/82 O2 Sat by Pulse 99 99 Oximetry (%) 01/02/17 01/03/17 01/03/17 22:39 03:00 09:00 Temperature 98.2 F 97 F L Pulse Rate 86 77 Respiratory 18 18 22 Rate Blood Pressure 154/98 159/88 O2 Sat by Pulse 98 Oximetry (%) 01/03/17 01/03/17 10:00 14:00 Temperature 98.4 F 97.7 F Pulse Rate 83 82 Respiratory 22 Rate Blood Pressure 179/97 147/87 O2 Sat by Pulse Oximetry (%) Intake & Output 01/01/17 01/02/17 01/03/17 01/04/17 07:59 07:59 07:59 07:59 Intake Total 033 166 2286 240 Balance 035 430 3867 240 Weight 164 lb 11.2 oz 161 lb nad no jvd rrr s1s2 no mrg ctabl nl eff aaox3 1+ LE edema to sacrum. abd nt nd pos bs no jaundice diaphoresis CBC, BMP 01/02/17 05:30 01/03/17 05:25 Laboratory Tests 01/03/17 06:00 PTT (Actin FS) 51.6 H D 12/30/16 01/03/17 20:00 06:00 INR 1.12 cta chest: questionable tiny rll subsegmental pe, mild bibasilar atelectasis R > L, can't r/o superimposed infiltrates. 4.5 cm rml nodular density. hepatomegaly, subcut edema suggestive of anasarca. ecg 12/30/16: sr, nl intervals, no ischemic changes tele: sr echo 12/2016: mod lvh, nl lv/rv fn, mod tr, mod phtn, mild pr, no pericardial effusion. a/p: 26 f hx esrd on hd, htn, ?subclavian vein thromboses s/p dialysis catheters in the past, Iddm type I, here with cp and recurrent PE. cp, PE: -sxs atypical for cardiac cp, resolved now -ecg, ce's unremarkable, no signs acs -possibly due to questionable new subsegmental PE seen on cta here. -cont ac for pe, heparin bridge to therapeutic inr. no evidence of rv strain/ Nl rv size/fn on echo --> not likely to be primary etiology of edema. esrd: -recent admit for volume overload. still with significant rt sided edema. - cont hd/volume mgm't per renal presumed dchf with exacerbation - mod lvh on echo - recent admit for volume overload. no significant pulmonary edema on chest cta , but appears to continue to have volume overload based on right sided sx's. - bp mgm't, HD/volume mgm't per renal. - will repeat lft's (has chronic elevations in alk phos) - daily weights htn: -con't HD, clonidine, labetolol, losartan, nifedipine. hydralazine increased to 50 tid last night, monitor for improvement in bp control. If sx's improving tomorrow, consider d/c telemetry.
[2017-01-03] MEDS ORDERED: WARFARIN NA 3 MG TABLET PO ONE (18:00)
[2017-01-03] MEDS: WARFARIN NA 5 MG TABLET (UD) PO SCH (18:18)
[2017-01-04] MEDS: HEPARIN - 25,000 UNIT in SODIUM CHLORIDE 495 ML IV SCH ×2 (00:11→15:00)
[2017-01-04] MEDS: oxyCODONE HCL 5 MG TABLET PO PRN ×6 (00:45→23:34)
[2017-01-04] MEDS: hydrALAZINE HCL 50 MG TABLET (FP) PO SCH ×3 (05:43→21:16)
[2017-01-04] MEDS: GABAPENTIN 100 MG CAPSULE (FP) PO SCH ×3 (05:44→21:16)
[2017-01-04] MEDS: LABETALOL HCL 200 MG TABLET (FP) PO SCH ×3 (05:44→21:16)
[2017-01-04] MEDS: cloNIDine HCL 0.1 MG TABLET PO SCH ×3 (05:44→21:16)
[2017-01-04] MEDS: INSULIN SLIDING SCALE (NOVOLOG) 1 VIAL SQ SCH ×4 (06:54→21:16)
[2017-01-04] MEDS: INSULIN DETEMIR 100 UNITS/ML MDV SQ SCH ×2 (06:54→21:17)
[2017-01-04] MEDS: METOCLOPRAMIDE HCL 10 MG TABLET (FP) PO SCH ×3 (07:17→17:24)
[2017-01-04] MEDS: SEVELAMER CARBONATE 800 MG TAB (FP) PO SCH ×3 (08:00→17:24)
[2017-01-04] MEDS: ACETAMINOPHEN 325 MG TABLET (FP) PO PRN ×2 (09:16→14:34)
[2017-01-04] MEDS ORDERED: EPOETIN ALFA 10,000 UNIT/1 ML VIAL IVPUSH ONE (10:00)
--- NOTE | 2017-01-04 10:29 | PN ---
Progress Note, Physician Chief Complaint: chest pain History of Present Illness: the prior cp has resolved she says feels mild pressure in chest c/w fluid overload sx for her she says; notes some sob when lays flat to sleep no palpitations, syncope - Current Medication List Current Medications: Active Medications Acetaminophen (Tylenol -) 325 mg PO Q6H PRN PRN Reason: PAIN Last Admin: 01/04/17 09:16 Dose: 325 mg Acetaminophen (Tylenol -) 325 mg PO Q6H PRN PRN Reason: PAIN Last Admin: 01/03/17 16:16 Dose: 325 mg Clonidine (Catapres -) 0.3 mg PO TID [facility] Last Admin: 01/04/17 05:44 Dose: Not Given Gabapentin (Neurontin -) 200 mg PO TID [facility] Last Admin: 01/04/17 05:44 Dose: Not Given Heparin Sodium (Porcine) (Heparin -) 5,000 unit IVPUSH PRN PRN PRN Reason: Heparin Last Admin: 01/03/17 00:07 Dose: 5,000 unit Heparin Sodium (Porcine) (Heparin -) 1,000 unit IVPUSH PRN PRN Last Admin: 01/01/17 23:04 Dose: 1,000 unit Hydralazine HCl (Apresoline -) 50 mg PO TID [facility] Last Admin: 01/04/17 05:43 Dose: Not Given Heparin Sodium (Porcine) 25, (000 unit/ Sodium Chloride) 500 mls @ 16 mls/hr IV TITR [facility]; 800 UNIT/HR PRN Reason: Protocol Last Admin: 01/04/17 00:11 Dose: 34 mls/hr Insulin Aspart (Novolog Vial Sliding Scale -) 1 vial SQ ACHS [facility] PRN Reason: Protocol Last Admin: 01/04/17 06:54 Dose: Not Given Insulin Detemir (Levemir Vial) 15 units SQ BID@0700,2200 [facility] Last Admin: 01/04/17 06:54 Dose: Not Given Labetalol HCl (Normodyne -) 400 mg PO TID [facility] Last Admin: 01/04/17 05:44 Dose: Not Given Losartan Potassium (Cozaar -) 100 mg PO DAILY [facility] Last Admin: 01/03/17 09:04 Dose: 100 mg Metoclopramide HCl (Reglan -) 5 mg PO TIDAC [facility] Last Admin: 01/04/17 07:17 Dose: Not Given Nifedipine (Procardia Xl -) 90 mg PO DAILY [facility] Last Admin: 01/03/17 09:04 Dose: 90 mg Oxycodone HCl (Roxicodone -) 10 mg PO Q4H PRN PRN Reason: PAIN Last Admin: 01/04/17 09:16 Dose: 10 mg Sevelamer Carbonate (Renvela -) 3,200 mg PO TIDCM [facility] Last Admin: 01/03/17 18:17 Dose: 3,200 mg Warfarin Sodium (Coumadin -) 5 mg PO DAILY@1800 [facility] Last Admin: 01/03/17 18:18 Dose: 5 mg - Objective Vital Signs: Vital Signs Temperature 98.6 F 01/04/17 05:59 Pulse Rate 86 01/04/17 05:59 Respiratory Rate 18 01/04/17 05:59 Blood Pressure 143/90 01/04/17 05:59 O2 Sat by Pulse Oximetry (%) 98 01/03/17 22:00 Constitutional: Yes: Well Nourished, No Distress, Calm Cardiovascular: Yes: Regular Rate and Rhythm, JVD (EJs distended), S1, S2. No: Gallop, Murmur Respiratory: Yes: Regular, CTA Bilaterally (anteriorly (ongoing HD)). No: Accessory Muscle Use Extremities: No: Cold Edema: Yes (mild-mod nonpitting ankle) Neurological: Yes: Alert, Oriented Psychiatric: No: Agitated Labs: CBC, BMP 01/02/17 05:30 01/03/17 05:25 INR, PTT INR 1.12 (0.82-1.09) 01/03/17 06:00 - ....Imaging EKG: Other (tele: NSR) Assessment/Plan cta chest: questionable tiny RLL subsegmental PE, mild bibasilar atelectasis R > L, can't r/o superimposed infiltrates. 4.5 cm RML nodular density. hepatomegaly, subcut edema suggestive of anasarca. ecg 12/30/16: sr, nl intervals, no ischemic changes tele: sr echo 12/2016: mod lvh, nl lv/rv fn, mod tr, mod phtn, mild pr, no pericardial effusion. a/p: 26 f hx esrd on hd, htn, ?subclavian vein thromboses s/p dialysis catheters in the past, Iddm type I, here with cp and recurrent PE. cp, PE: -sxs atypical for cardiac cp, resolved now -ecg, ce's unremarkable, no signs acs--no concern of anginal cp sx's -chest pain ? due to questionable new tiny subsegmental PE seen on cta here??? -d/w'd dr ford--pt has prior h/o VTEs (? prior PE as well, probably unprovoked as she was on [facility] AC until recently when had GIB). has been seen by pulm in past and he will reconsult them here--if decision regarding duration of AC will hinge on whether or not this was a new PE currently, ? should do V/Q once she is better diuresed and CXR clears--defer to pulm -cont ac for pe, heparin bridge to therapeutic inr on coumadin. -no evidence of rv strain on echo, tiny clot suspected --> not the etiology of edema/subtuneous edema. esrd: -recent admit for volume overload. still with significant rt sided edema. - cont hd/volume mgm't per renal acute on chronic dchf - mod lvh on echo - recent admit for volume overload. - currently mild sob/orthopnea sx's, EJ's distended. no significant pulmonary edema on chest cta, but appears to be overloaded. - bp mgmt as doing - fluid mgmt per renal via HD/UF - monitor LFTs--? right sided congestion - daily weights--? accurate trend here?? htn: -con't clonidine, labetolol, losartan, nifedipine. -hydralazine increased to 50 tid here -bp overall better controlled, observe trend
[2017-01-04 11:25] LABS: MCH 27.4 pg (25.7-33.7); MCHC 31.6 g/dl (32.0-36.0); MEAN PLT VOLUME 9.5 fl (7.5-11.1); PLATELET COUNT 351 K/MM3 (134-434); RDW 17.1 % (11.6-15.6); WHITE BLOOD COUNT 9.4 K/mm3 (4.0-10.0)
[2017-01-04 11:42] LABS: INR 1.27 (0.82-1.09)
--- NOTE | 2017-01-04 11:49 | PN ---
Progress Note (short form) - Note Progress Note: patient seen and examined today Being dialyzed Reports pain is better No other issues Vital Signs Temp 97.8 F 01/04/17 10:00 Pulse 80 01/04/17 11:30 Resp 18 01/04/17 11:30 BP 180/100 01/04/17 11:30 Pulse Ox 98 01/04/17 09:00 Intake & Output 01/03/17 01/03/17 01/04/17 11:59 23:59 11:59 Intake Total 733 200 500 Balance 733 200 500 Weight 170 lb 12.8 oz Intake: IV 393 400 Heparin - 25,000 Unit In 393 400 Normal Saline - 495 ml @ 800 UNIT/HR 16 mls/hr IV TITR [facility] Rx#:[id number] Oral 340 200 100 Other: Voiding Method Toilet Toilet Toilet # Unmeasured Voids Void 1 Weight Measurement Method Standing Scale Active Medications Acetaminophen (Tylenol -) 325 mg PO Q6H PRN PRN Reason: PAIN Last Admin: 01/04/17 09:16 Dose: 325 mg Acetaminophen (Tylenol -) 325 mg PO Q6H PRN PRN Reason: PAIN Last Admin: 01/03/17 16:16 Dose: 325 mg Clonidine (Catapres -) 0.3 mg PO TID [facility] Last Admin: 01/04/17 05:44 Dose: Not Given Gabapentin (Neurontin -) 200 mg PO TID [facility] Last Admin: 01/04/17 05:44 Dose: Not Given Heparin Sodium (Porcine) (Heparin -) 5,000 unit IVPUSH PRN PRN PRN Reason: Heparin Last Admin: 01/03/17 00:07 Dose: 5,000 unit Heparin Sodium (Porcine) (Heparin -) 1,000 unit IVPUSH PRN PRN Last Admin: 01/01/17 23:04 Dose: 1,000 unit Hydralazine HCl (Apresoline -) 50 mg PO TID [facility] Last Admin: 01/04/17 05:43 Dose: Not Given Heparin Sodium (Porcine) 25, (000 unit/ Sodium Chloride) 500 mls @ 16 mls/hr IV TITR [facility]; 800 UNIT/HR PRN Reason: Protocol Last Admin: 01/04/17 00:11 Dose: 34 mls/hr Insulin Aspart (Novolog Vial Sliding Scale -) 1 vial SQ ACHS [facility] PRN Reason: Protocol Last Admin: 01/04/17 06:54 Dose: Not Given Insulin Detemir (Levemir Vial) 15 units SQ BID@0700,2200 [facility] Last Admin: 01/04/17 06:54 Dose: Not Given Labetalol HCl (Normodyne -) 400 mg PO TID [facility] Last Admin: 01/04/17 05:44 Dose: Not Given Losartan Potassium (Cozaar -) 100 mg PO DAILY [facility] Last Admin: 01/03/17 09:04 Dose: 100 mg Metoclopramide HCl (Reglan -) 5 mg PO TIDAC [facility] Last Admin: 01/04/17 07:17 Dose: Not Given Nifedipine (Procardia Xl -) 90 mg PO DAILY [facility] Last Admin: 01/03/17 09:04 Dose: 90 mg Oxycodone HCl (Roxicodone -) 10 mg PO Q4H PRN PRN Reason: PAIN Last Admin: 01/04/17 09:16 Dose: 10 mg Sevelamer Carbonate (Renvela -) 3,200 mg PO TIDCM [facility] Last Admin: 01/03/17 18:17 Dose: 3,200 mg Warfarin Sodium (Coumadin -) 5 mg PO DAILY@1800 [facility] Last Admin: 01/03/17 18:18 Dose: 5 mg CBC, BMP 01/04/17 10:00 INR, PTT INR 1.27 (0.82-1.09) H 01/04/17 10:00 Physical Examination Constitutional: Yes: No Distress/ comfortable. Cardiovascular: Yes: Regular Rate and Rhythm, Murmur Respiratory: Yes: Diminished at bases Gastrointestinal: Yes: Normal Bowel Sounds, Soft. No: Distention, Tenderness Edema: Yes Edema:+ 1 Neurological: Yes: Alert, Oriented Psychiatric: Yes: Alert, Oriented Assessment and plan Clinically better continue present care Monitor blood counts Started on Coumadin-- extra dose again today Monitor blood sugar Daily out of bed to chair fall precautions cardiology follow-up noted Per recommendation--- we will consult pulmonary will follow Problem List - Problems (1) Pulmonary embolism Code(s): I26.99 - OTHER PULMONARY EMBOLISM WITHOUT ACUTE COR PULMONALE Qualifiers: Pulmonary embolism type: other Chronicity: acute Acute cor pulmonale presence: without acute cor pulmonale Qualified Code(s): I26.99 - Other pulmonary embolism without acute cor pulmonale; I26.99 - Other pulmonary embolism without acute cor pulmonale; I26.99 - Other pulmonary embolism without acute cor pulmonale; I26.99 - Other pulmonary embolism without acute cor pulmonale (2) ESRD (end stage renal disease) on dialysis Code(s): N18.6 - END STAGE RENAL DISEASE Z99.2 - DEPENDENCE ON RENAL DIALYSIS (3) HTN (hypertension) Code(s): I10 - ESSENTIAL (PRIMARY) HYPERTENSION Qualifiers: Hypertension type: renovascular hypertension Qualified Code(s): I15.0 - Renovascular hypertension; I15.0 - Renovascular hypertension; I15.0 - Renovascular hypertension (4) Anemia Code(s): D64.9 - ANEMIA, UNSPECIFIED Qualifiers: Folate deficiency anemia type: dietary (5) Diabetes mellitus, insulin dependent (IDDM), uncontrolled Code(s): E10.65 - TYPE 1 DIABETES MELLITUS WITH HYPERGLYCEMIA Qualifiers: Diabetes mellitus complication status: with unspecified complications Qualified Code(s): E10.8 - Type 1 diabetes mellitus with unspecified complications; E10.8 - Type 1 diabetes mellitus with unspecified complications; E10.8 - Type 1 diabetes mellitus with unspecified complications; E10.8 - Type 1 diabetes mellitus with unspecified complications; E10.65 - Type 1 diabetes mellitus with hyperglycemia; E10.65 - Type 1 diabetes mellitus with hyperglycemia; E10.65 - Type 1 diabetes mellitus with hyperglycemia; E10.65 - Type 1 diabetes mellitus with hyperglycemia (6) Leg pain, right Code(s): M79.604 - PAIN IN RIGHT LEG
[2017-01-04 11:51] LABS: ALBUMIN 2.7 g/dl (3.4-5.0); ANION GAP 12 (8-16); BILIRUBIN,DIRECT 0.2 mg/dL (0.0-0.2); BILIRUBIN,TOTAL 0.6 mg/dL (0.2-1.0); CO2 25 mmol/L (21-32); CREATININE 5.5 mg/dL (0.55-1.02); GLUCOSE,RANDOM 186 mg/dL (74-106); PHOSPHOROUS 5.5 mg/dL (2.5-4.9); SGOT/AST 42 U/L (15-37); SGPT/ALT 39 U/L (12-78); TOT PROT 7.6 g/dl (6.4-8.2)
[2017-01-04] MEDS: LOSARTAN POTASSIUM 50 MG TABLET (FP) PO SCH (12:05)
[2017-01-04] MEDS: NIFEdipine E.R. 90 MG TABLET (FP) PO SCH (12:05)
[2017-01-04 12:06] LABS: ALK PHOS 1357 U/L (45-117)
--- NOTE | 2017-01-04 13:03 | PN ---
Progress Note (short form) - Note Progress Note: PULMONARY CONSULTATION DICTATED 01/04/17 IMP PULMONARY EMBOLISM CP/SOB ESRD ON HD HTN IDDM H/O R ATRIAL MYXOMA H/O DVT/PE PULMONARY HTN PLAN AC SUPPLEMENTAL O2 HD PER RENAL DUPLEX LOWER EXT W/U FOR HYPERCOAGULABLE STATE OUTPATIENT DR BECERRA Problem List - Problems (1) Chest pain Code(s): R07.9 - CHEST PAIN, UNSPECIFIED Qualifiers: Chest pain type: pleurodynia Qualified Code(s): R07.81 - Pleurodynia; R07.81 - Pleurodynia (2) Pulmonary embolism Code(s): I26.99 - OTHER PULMONARY EMBOLISM WITHOUT ACUTE COR PULMONALE Qualifiers: Pulmonary embolism type: other Chronicity: acute Acute cor pulmonale presence: without acute cor pulmonale Qualified Code(s): I26.99 - Other pulmonary embolism without acute cor pulmonale; I26.99 - Other pulmonary embolism without acute cor pulmonale; I26.99 - Other pulmonary embolism without acute cor pulmonale; I26.99 - Other pulmonary embolism without acute cor pulmonale (3) ESRD (end stage renal disease) on dialysis Code(s): N18.6 - END STAGE RENAL DISEASE Z99.2 - DEPENDENCE ON RENAL DIALYSIS (4) HTN (hypertension) Code(s): I10 - ESSENTIAL (PRIMARY) HYPERTENSION Qualifiers: Hypertension type: renovascular hypertension Qualified Code(s): I15.0 - Renovascular hypertension; I15.0 - Renovascular hypertension; I15.0 - Renovascular hypertension (5) Anemia Code(s): D64.9 - ANEMIA, UNSPECIFIED Qualifiers: Folate deficiency anemia type: dietary (6) End stage chronic kidney disease Code(s): N18.6 - END STAGE RENAL DISEASE Z99.2 - DEPENDENCE ON RENAL DIALYSIS (7) History of pulmonary embolus (PE) Code(s): Z86.711 - PERSONAL HISTORY OF PULMONARY EMBOLISM (8) Pulmonary HTN Code(s): I27.20 - PULMONARY HYPERTENSION, UNSPECIFIED
[2017-01-04] MEDS ORDERED: INSULIN (NOVOLOG) ASPART 100 UNITS/ML 10ML VIAL ONE ×4 (14:29→19:44)
[2017-01-04 14:59] LABS: MCH 27.2 pg (25.7-33.7); MCHC 31.5 g/dl (32.0-36.0); MEAN CELL VOLUME 86.3 fl (80-96); MEAN PLT VOLUME 9.6 fl (7.5-11.1); PLATELET COUNT 361 K/MM3 (134-434); RDW 16.7 % (11.6-15.6); WHITE BLOOD COUNT 8.4 K/mm3 (4.0-10.0)
[2017-01-04] MEDS: WARFARIN NA 5 MG TABLET (UD) PO SCH (17:25)
--- NOTE | 2017-01-04 17:41 | PN ---
Progress Note (short form) - Note Progress Note: Renal Follow up for ESRD/Volume overload Pt seen and examined during dialysis earlier today AVF with good flow BP very higih goal UF is 3.5 L pt feels full of fluid in her abd no sob, chest pain Vital Signs Temperature 98.5 F 01/04/17 16:51 Pulse Rate 76 01/04/17 16:51 Respiratory Rate 20 01/04/17 16:51 Blood Pressure 161/89 01/04/17 16:51 O2 Sat by Pulse Oximetry (%) 98 01/04/17 09:00 Intake & Output 01/01/17 01/02/17 01/03/17 01/04/17 23:59 23:59 23:59 23:59 Intake Total 760 6520 532 0331 Balance 760 2031 303 8026 Weight 164 lb 11.2 oz 161 lb 170 lb 12.8 oz NAD, awake and alert RRR, No M/R Dec BS at lung bases, no rales soft NT/ND 1+ edema in LE, no cyanosis CBC, BMP 01/04/17 14:00 01/04/17 10:00 Current Medications Acetaminophen (Tylenol -) 325 mg PO Q6H PRN PRN Reason: PAIN Last Admin: 01/04/17 14:34 Dose: 325 mg Acetaminophen (Tylenol -) 325 mg PO Q6H PRN PRN Reason: PAIN Last Admin: 01/03/17 16:16 Dose: 325 mg Clonidine (Catapres -) 0.3 mg PO TID [facility] Last Admin: 01/04/17 14:34 Dose: 0.3 mg Gabapentin (Neurontin -) 200 mg PO TID [facility] Last Admin: 01/04/17 14:34 Dose: 200 mg Heparin Sodium (Porcine) (Heparin -) 5,000 unit IVPUSH PRN PRN PRN Reason: Heparin Last Admin: 01/03/17 00:07 Dose: 5,000 unit Heparin Sodium (Porcine) (Heparin -) 1,000 unit IVPUSH PRN PRN Last Admin: 01/01/17 23:04 Dose: 1,000 unit Hydralazine HCl (Apresoline -) 50 mg PO TID [facility] Last Admin: 01/04/17 14:34 Dose: 50 mg Heparin Sodium (Porcine) 25, (000 unit/ Sodium Chloride) 500 mls @ 16 mls/hr IV TITR [facility]; 800 UNIT/HR PRN Reason: Protocol Last Admin: 01/04/17 15:00 Dose: 34 mls/hr Insulin Aspart (Novolog Vial Sliding Scale -) 1 vial SQ ACHS [facility] PRN Reason: Protocol Last Admin: 01/04/17 17:25 Dose: 4 units Insulin Detemir (Levemir Vial) 15 units SQ BID@0700,2200 [facility] Last Admin: 01/04/17 06:54 Dose: Not Given Labetalol HCl (Normodyne -) 400 mg PO TID [facility] Last Admin: 01/04/17 14:35 Dose: 400 mg Losartan Potassium (Cozaar -) 100 mg PO DAILY [facility] Last Admin: 01/04/17 12:05 Dose: 100 mg Metoclopramide HCl (Reglan -) 5 mg PO TIDAC [facility] Last Admin: 01/04/17 17:24 Dose: 5 mg Nifedipine (Procardia Xl -) 90 mg PO DAILY [facility] Last Admin: 01/04/17 12:05 Dose: 90 mg Oxycodone HCl (Roxicodone -) 10 mg PO Q4H PRN PRN Reason: PAIN Last Admin: 01/04/17 14:35 Dose: 10 mg Sevelamer Carbonate (Renvela -) 3,200 mg PO TIDCM [facility] Last Admin: 01/04/17 17:24 Dose: 3,200 mg Warfarin Sodium (Coumadin -) 5 mg PO DAILY@1800 [facility] Last Admin: 01/04/17 17:25 Dose: 5 mg Warfarin Sodium (Coumadin -) 3 mg PO ONCE@1800 ONE Stop: 01/04/17 18:01 Last Admin: 01/04/17 17:25 Dose: 3 mg 26 year old woman with PMhx of ESRD on Hd (MWF), Hypertension, DM Type 1, Hx of DVT who presents with right sided pleuretic chest pain and found to have a suspected/small PE on CTA and volume expansion. Pt started to develop the pleuretic chest pain yesterday with dialysis. #Right sided PE w/o evidence of DVT\ a/c as per primary team #ESRD on HD with Fluid overload and contrast exposure tolerating HD today UF 3.5L as tolerated #Insulin dependent DM continue insulin as per primary #Hypertension continue Labetalol, Clondine, Losartan, Nifedpine #CKD related Anemia will continue Epogen with HD #Renal Osteodystrophy renvela to 3200mg TID with meals Thank you will follow Nathan Vo DO Problem List - Problems (1) Chest pain Code(s): R07.9 - CHEST PAIN, UNSPECIFIED Qualifiers: Chest pain type: pleurodynia Qualified Code(s): R07.81 - Pleurodynia; R07.81 - Pleurodynia (2) Pulmonary embolism Code(s): I26.99 - OTHER PULMONARY EMBOLISM WITHOUT ACUTE COR PULMONALE Qualifiers: Pulmonary embolism type: other Chronicity: acute Acute cor pulmonale presence: without acute cor pulmonale Qualified Code(s): I26.99 - Other pulmonary embolism without acute cor pulmonale; I26.99 - Other pulmonary embolism without acute cor pulmonale; I26.99 - Other pulmonary embolism without acute cor pulmonale; I26.99 - Other pulmonary embolism without acute cor pulmonale (3) ESRD (end stage renal disease) on dialysis Code(s): N18.6 - END STAGE RENAL DISEASE Z99.2 - DEPENDENCE ON RENAL DIALYSIS (4) HTN (hypertension) Code(s): I10 - ESSENTIAL (PRIMARY) HYPERTENSION Qualifiers: Hypertension type: renovascular hypertension Qualified Code(s): I15.0 - Renovascular hypertension; I15.0 - Renovascular hypertension; I15.0 - Renovascular hypertension (5) Anemia Code(s): D64.9 - ANEMIA, UNSPECIFIED Qualifiers: Folate deficiency anemia type: dietary (6) Diabetes mellitus, insulin dependent (IDDM), uncontrolled Code(s): E10.65 - TYPE 1 DIABETES MELLITUS WITH HYPERGLYCEMIA Qualifiers: Diabetes mellitus complication status: with unspecified complications Qualified Code(s): E10.8 - Type 1 diabetes mellitus with unspecified complications; E10.8 - Type 1 diabetes mellitus with unspecified complications; E10.8 - Type 1 diabetes mellitus with unspecified complications; E10.8 - Type 1 diabetes mellitus with unspecified complications; E10.65 - Type 1 diabetes mellitus with hyperglycemia; E10.65 - Type 1 diabetes mellitus with hyperglycemia; E10.65 - Type 1 diabetes mellitus with hyperglycemia; E10.65 - Type 1 diabetes mellitus with hyperglycemia
[2017-01-04] MEDS ORDERED: WARFARIN NA 3 MG TABLET PO ONE (18:00)
[2017-01-05] MEDS: GABAPENTIN 100 MG CAPSULE (FP) PO SCH ×3 (06:05→21:55)
[2017-01-05] MEDS: LABETALOL HCL 200 MG TABLET (FP) PO SCH ×3 (06:05→21:56)
[2017-01-05] MEDS: hydrALAZINE HCL 50 MG TABLET (FP) PO SCH ×3 (06:05→21:56)
[2017-01-05] MEDS: cloNIDine HCL 0.1 MG TABLET PO SCH ×3 (06:05→21:56)
[2017-01-05] MEDS: METOCLOPRAMIDE HCL 10 MG TABLET (FP) PO SCH ×3 (06:06→17:43)
[2017-01-05] MEDS: oxyCODONE HCL 5 MG TABLET PO PRN ×3 (06:28→19:36)
[2017-01-05] MEDS: INSULIN DETEMIR 100 UNITS/ML MDV SQ SCH ×2 (06:30→21:57)
[2017-01-05] MEDS: INSULIN SLIDING SCALE (NOVOLOG) 1 VIAL SQ SCH ×4 (06:31→21:57)
[2017-01-05] MEDS ORDERED: INSULIN (NOVOLOG) ASPART 100 UNITS/ML 10ML VIAL ONE ×2 (06:39→17:52)
[2017-01-05] MEDS: HEPARIN - 25,000 UNIT in SODIUM CHLORIDE 495 ML IV SCH ×2 (06:40→23:00)
--- NOTE | 2017-01-05 07:58 | CONS ---
PULMONARY CONSULTATION DATE OF CONSULTATION: 01/04/2017 REFERRING PHYSICIAN: Valentine Acuña MD HISTORY OF PRESENT ILLNESS: The patient is a 26-year-old black female with past medical history of end-stage renal disease on hemodialysis 3 times a week for approximately 7 years; insulin-dependent diabetes mellitus; history of DVT secondary apparently to a port, with subsequent pulmonary embolism approximately 5-6 years ago; history of right atrial myxoma status post resection at [facility] 5 years ago, who is a nonsmoker, admitted to [facility] complaining of chest pain. Patient states she has had chest pain and shortness of breath. Patient states she has had intermittent chest pain over the past 3 days prior to admission, located in the right side of the chest. Denied any nausea, vomiting, or diaphoresis. The pain was worse with inspiration and exertion. Denied any fevers or chills. No hemoptysis. She underwent a CTA of the chest which revealed a small, likely right lower lobe pulmonary embolism. She was admitted. She was started on anticoagulation. Patient denies any recent travel. There is no history of occupational exposure to chemicals or fumes. Patient states for the past few days prior to admission she has been noticing progressively lower extremity edema, and she is not able to lie as flat as normally despite getting fluid removed during hemodialysis. PAST MEDICAL HISTORY: Again includes end-stage renal disease on hemodialysis, right atrial myxoma status post resection, anemia, pulmonary embolism secondary to catheter, seizures many years ago. REVIEW OF SYSTEMS: No orthopnea. Positive mild dyspnea. Positive chest pain. No fever. No chills. No hemoptysis. No abdominal pain. Positive lower extremity edema. CURRENT MEDICATIONS: Include Tylenol, losartan, heparin, Coumadin, Neurontin, Normodyne, Catapres, Procardia, Apresoline, Levemir, Renvela, and Reglan. PHYSICAL EXAMINATION: General: The patient is a well-developed, well-nourished female, awake, alert, in no acute distress. Vital Signs: She is currently afebrile, blood pressure 180/100, respiratory rate is 18. HEENT: Normocephalic, atraumatic. Neck: Supple. Heart: Regular. S1, S2. Chest: Clear. Abdomen: Soft. Bowel sounds positive. Extremities: +edema. LABORATORY DATA: WBC is 9.4, hemoglobin 7.4, hematocrit 23.6, with a platelet count of 351,000. BUN 74, creatinine 5.5. Alkaline phosphatase is 1357. Chest CT: Questionable small pulmonary embolism, right lower lobe subsegmental branch; mild basal atelectatic changes; a 4.5-mm nodular density in the right middle lobe. IMPRESSION: 1. Chest pain and dyspnea secondary to small pulmonary embolism. 2. End-stage renal disease on hemodialysis. 3. History of right atrial myxoma status post resection. 4. Hypertension poorly controlled. 5. Diabetes. PLAN: Continue anticoagulation, supplemental O2, continue hemodialysis as per Renal. w/u for hypercoagulable state as outpatient, titrate bp meds Thank you. Will follow closely with you. SAFIA BECERRA M.D. [id number] MTDD
[2017-01-05] MEDS: NIFEdipine E.R. 90 MG TABLET (FP) PO SCH (08:59)
[2017-01-05] MEDS: LOSARTAN POTASSIUM 50 MG TABLET (FP) PO SCH (08:59)
[2017-01-05] MEDS: SEVELAMER CARBONATE 800 MG TAB (FP) PO SCH ×3 (08:59→17:43)
--- NOTE | 2017-01-05 10:32 | PN ---
Progress Note (short form) - Note Progress Note: feeling dizzy after she takes Procardia refused labs this AM Current Medications Generic Name Dose Route Start Last Admin Trade Name Jase PRN Reason Stop Dose Admin Acetaminophen 325 mg 12/30/16 21:41 01/04/17 14:34 Tylenol - PO 325 mg Q6H PRN Administration PAIN Acetaminophen 325 mg 12/30/16 22:13 01/03/17 16:16 Tylenol - PO 325 mg Q6H PRN Administration PAIN Clonidine 0.3 mg 12/30/16 22:00 01/05/17 06:05 Catapres - PO 0.3 mg TID ROSA MARIA Administration Gabapentin 200 mg 01/03/17 15:00 01/05/17 06:05 Neurontin - PO 200 mg TID ROSA MARIA Administration Heparin Sodium (Porcine) 5,000 unit 12/30/16 23:03 01/03/17 00:07 Heparin - IVPUSH 5,000 unit PRN PRN Administration Heparin Heparin Sodium (Porcine) 1,000 unit 01/01/17 13:28 01/01/17 23:04 Heparin - IVPUSH 1,000 unit PRN PRN Administration Hydralazine HCl 50 mg 01/02/17 14:00 01/05/17 06:05 Apresoline - PO 50 mg TID ROSA MARIA Administration Heparin Sodium (Porcine) 25, 500 mls @ 16 mls/hr 12/30/16 23:15 01/05/17 06:40 000 unit/ Sodium Chloride IV 34 mls/hr TITR ROSA MARIA Administration Protocol 800 UNIT/HR Insulin Aspart 1 vial 12/30/16 22:00 01/05/17 10:29 Novolog Vial Sliding Scale - SQ Not Given ACHS [facility] Protocol Insulin Detemir 15 units 12/30/16 22:00 01/05/17 06:30 Levemir Vial SQ 15 units BID@0700,2200 ROSA MARIA Administration Labetalol HCl 400 mg 12/30/16 22:00 01/05/17 06:05 Normodyne - PO 400 mg TID ROSA MARIA Administration Losartan Potassium 100 mg 12/31/16 10:00 01/05/17 08:59 Cozaar - PO 100 mg DAILY ROSA MARIA Administration Metoclopramide HCl 5 mg 12/31/16 07:00 01/05/17 06:06 Reglan - PO 5 mg TIDAC ROSA MARIA Administration Nifedipine 90 mg 12/31/16 10:00 01/05/17 08:59 Procardia Xl - PO 90 mg DAILY ROSA MARIA Administration Oxycodone HCl 10 mg 01/03/17 15:00 01/05/17 06:28 Roxicodone - PO 10 mg Q4H PRN Administration PAIN Sevelamer Carbonate 3,200 mg 01/01/17 12:45 01/05/17 08:59 Renvela - PO 3,200 mg TIDCM [facility] Administration Warfarin Sodium 7 mg 01/05/17 10:33 Coumadin - PO DAILY@1800 [facility] Vital Signs - 24 hr 01/04/17 01/04/17 01/04/17 11:00 11:30 12:00 Temperature Pulse Rate 81 80 81 Respiratory 18 18 18 Rate Blood Pressure 168/104 180/100 179/104 O2 Sat by Pulse Oximetry (%) 01/04/17 01/04/17 01/04/17 12:30 13:00 13:01 Temperature Pulse Rate 86 93 H 76 Respiratory 18 18 22 Rate Blood Pressure 138/79 155/89 138/79 O2 Sat by Pulse Oximetry (%) 01/04/17 01/04/17 01/04/17 13:30 14:00 14:10 Temperature 97.6 F Pulse Rate 91 H 92 H 78 Respiratory 18 18 20 Rate Blood Pressure 162/90 154/76 155/89 O2 Sat by Pulse Oximetry (%) 01/04/17 01/04/17 01/04/17 14:30 16:51 20:00 Temperature 98.5 F 98.4 F Pulse Rate 90 76 97 H Respiratory 18 20 20 Rate Blood Pressure 152/74 161/89 139/90 O2 Sat by Pulse Oximetry (%) 01/04/17 01/05/17 01/05/17 20:31 01:30 05:39 Temperature 97.6 F 98.3 F Pulse Rate 91 H 86 Respiratory 20 20 20 Rate Blood Pressure 152/83 155/88 O2 Sat by Pulse 98 Oximetry (%) 01/05/17 09:00 Temperature 97.5 F L Pulse Rate 87 Respiratory 16 Rate Blood Pressure 143/80 O2 Sat by Pulse Oximetry (%) Laboratory Results - last 24 hr 01/04/17 01/04/17 01/04/17 06:00 10:00 10:00 WBC RBC Hgb Hct MCV MCH MCHC RDW Plt Count MPV PT with INR 14.00 H INR 1.27 H PTT (Actin FS) 51.0 H Sodium Potassium Chloride Carbon Dioxide Anion Gap BUN Creatinine POC Glucometer Random Glucose Calcium Phosphorus Total Bilirubin Cancelled Direct Bilirubin Cancelled AST Cancelled ALT Cancelled Alkaline Phosphatase Cancelled Total Protein Cancelled Albumin Cancelled Blood Type Antibody Screen 01/04/17 01/04/17 01/04/17 10:00 10:00 10:00 WBC 9.4 RBC 2.71 L Hgb 7.4 L D Hct 23.6 L MCV 87.0 MCH 27.4 MCHC 31.6 L RDW 17.1 H Plt Count 351 MPV 9.5 PT with INR INR PTT (Actin FS) Cancelled Sodium 135 L Potassium 5.5 H D Chloride 98 Carbon Dioxide 25 Anion Gap 12 BUN 74 H D Creatinine 5.5 H D POC Glucometer Random Glucose 186 H D Calcium 8.0 L Phosphorus 5.5 H D Total Bilirubin 0.6 Direct Bilirubin 0.2 AST 42 H D ALT 39 D Alkaline Phosphatase 1357 H Total Protein 7.6 Albumin 2.7 L Blood Type Antibody Screen 01/04/17 01/04/17 01/04/17 10:00 11:00 14:00 WBC 8.4 RBC 2.82 L Hgb 7.7 L Hct 24.3 L MCV 86.3 MCH 27.2 MCHC 31.5 L RDW 16.7 H Plt Count 361 MPV 9.6 PT with INR Cancelled INR Cancelled PTT (Actin FS) Sodium Potassium Chloride Carbon Dioxide Anion Gap BUN Creatinine POC Glucometer 196 Random Glucose Calcium Phosphorus Total Bilirubin Direct Bilirubin AST ALT Alkaline Phosphatase Total Protein Albumin Blood Type Antibody Screen 01/04/17 01/04/17 01/04/17 14:00 16:41 20:53 WBC RBC Hgb Hct MCV MCH MCHC RDW Plt Count MPV PT with INR INR PTT (Actin FS) Sodium Potassium Chloride Carbon Dioxide Anion Gap BUN Creatinine POC Glucometer 235 311 Random Glucose Calcium Phosphorus Total Bilirubin Direct Bilirubin AST ALT Alkaline Phosphatase Total Protein Albumin Blood Type B POSITIVE Antibody Screen Negative 01/05/17 01/05/17 01:05 05:55 WBC RBC Hgb Hct MCV MCH MCHC RDW Plt Count MPV PT with INR INR PTT (Actin FS) Sodium Potassium Chloride Carbon Dioxide Anion Gap BUN Creatinine POC Glucometer 75 206 Random Glucose Calcium Phosphorus Total Bilirubin Direct Bilirubin AST ALT Alkaline Phosphatase Total Protein Albumin Blood Type Antibody Screen S1 s2 RRR Lungs decreased Abd- soft, NT edema++ A/P increase Coumadin Check labs in HD today-- spoke with renal Mylanta x 1 dose only as she c/o heart burn continue with meds Bp is better controlled PT eval Problem List - Problems (1) Chest pain Code(s): R07.9 - CHEST PAIN, UNSPECIFIED Qualifiers: Chest pain type: pleurodynia Qualified Code(s): R07.81 - Pleurodynia; R07.81 - Pleurodynia (2) Pulmonary embolism Code(s): I26.99 - OTHER PULMONARY EMBOLISM WITHOUT ACUTE COR PULMONALE Qualifiers: Pulmonary embolism type: other Chronicity: acute Acute cor pulmonale presence: without acute cor pulmonale Qualified Code(s): I26.99 - Other pulmonary embolism without acute cor pulmonale; I26.99 - Other pulmonary embolism without acute cor pulmonale; I26.99 - Other pulmonary embolism without acute cor pulmonale; I26.99 - Other pulmonary embolism without acute cor pulmonale (3) ESRD (end stage renal disease) on dialysis Code(s): N18.6 - END STAGE RENAL DISEASE Z99.2 - DEPENDENCE ON RENAL DIALYSIS (4) HTN (hypertension) Code(s): I10 - ESSENTIAL (PRIMARY) HYPERTENSION Qualifiers: Hypertension type: renovascular hypertension Qualified Code(s): I15.0 - Renovascular hypertension; I15.0 - Renovascular hypertension; I15.0 - Renovascular hypertension (5) Anemia Code(s): D64.9 - ANEMIA, UNSPECIFIED Qualifiers: Folate deficiency anemia type: dietary
[2017-01-05] MEDS ORDERED: WARFARIN NA 5 MG TABLET (UD) PO SCH (10:33)
--- NOTE | 2017-01-05 10:43 | PN ---
Progress Note (short form) - Note Progress Note: PULMONARY Still some shortness of breath but improves after HD. No chest pain. Last Vital Signs Temp Pulse Resp BP Pulse Ox 97.5 F L 87 16 143/80 98 01/05/17 09:00 01/05/17 09:00 01/05/17 09:00 01/05/17 09:00 01/04/17 20:31 Gen: NAD at rest Heart: RRR Lung: decreased breath sounds at the bases Abd: soft, nontender Ext: no edema CBC, BMP 01/04/17 14:00 01/04/17 10:00 Active Medications Acetaminophen (Tylenol -) 325 mg PO Q6H PRN PRN Reason: PAIN Last Admin: 01/04/17 14:34 Dose: 325 mg Acetaminophen (Tylenol -) 325 mg PO Q6H PRN PRN Reason: PAIN Last Admin: 01/03/17 16:16 Dose: 325 mg Clonidine (Catapres -) 0.3 mg PO TID [facility] Last Admin: 01/05/17 06:05 Dose: 0.3 mg Gabapentin (Neurontin -) 200 mg PO TID [facility] Last Admin: 01/05/17 06:05 Dose: 200 mg Heparin Sodium (Porcine) (Heparin -) 5,000 unit IVPUSH PRN PRN PRN Reason: Heparin Last Admin: 01/03/17 00:07 Dose: 5,000 unit Heparin Sodium (Porcine) (Heparin -) 1,000 unit IVPUSH PRN PRN Last Admin: 01/01/17 23:04 Dose: 1,000 unit Hydralazine HCl (Apresoline -) 50 mg PO TID [facility] Last Admin: 01/05/17 06:05 Dose: 50 mg Heparin Sodium (Porcine) 25, (000 unit/ Sodium Chloride) 500 mls @ 16 mls/hr IV TITR ROSA MARIA; 800 UNIT/HR PRN Reason: Protocol Last Admin: 01/05/17 06:40 Dose: 34 mls/hr Insulin Aspart (Novolog Vial Sliding Scale -) 1 vial SQ ACHS ROSA MARIA PRN Reason: Protocol Last Admin: 01/05/17 10:29 Dose: Not Given Insulin Detemir (Levemir Vial) 15 units SQ BID@0700,2200 [facility] Last Admin: 01/05/17 06:30 Dose: 15 units Labetalol HCl (Normodyne -) 400 mg PO TID [facility] Last Admin: 01/05/17 06:05 Dose: 400 mg Losartan Potassium (Cozaar -) 100 mg PO DAILY [facility] Last Admin: 01/05/17 08:59 Dose: 100 mg Metoclopramide HCl (Reglan -) 5 mg PO TIDAC [facility] Last Admin: 01/05/17 06:06 Dose: 5 mg Nifedipine (Procardia Xl -) 90 mg PO DAILY [facility] Last Admin: 01/05/17 08:59 Dose: 90 mg Oxycodone HCl (Roxicodone -) 10 mg PO Q4H PRN PRN Reason: PAIN Last Admin: 01/05/17 06:28 Dose: 10 mg Sevelamer Carbonate (Renvela -) 3,200 mg PO TIDCM [facility] Last Admin: 01/05/17 08:59 Dose: 3,200 mg Warfarin Sodium (Coumadin -) 7 mg PO DAILY@1800 [facility] A/P Acute Pulmonary Embolism ESRD on HD Pulmonary HTN HTN DM - continue anticoagulation - HD per renal - check labs during HD - may need life long anticoagulation as this is not her first VTE
[2017-01-05] MEDS ORDERED: MAG HYDROX/AL HYDROX/SIMETH 30 ML UNIT-DOSE CUP PO ONE ×2 (11:02→15:15)
[2017-01-05 12:15] LABS: ANION GAP 9 (8-16); CALCIUM 8.2 mg/dL (8.5-10.1); CO2 28 mmol/L (21-32); CREATININE 4.1 mg/dL (0.55-1.02); GLUCOSE,RANDOM 133 mg/dL (74-106)
[2017-01-05 12:17] LABS: INR 1.45 (0.82-1.09); PROTHROMBIN TIME (PATIENT) 16.1 SEC (9.98-11.88)
[2017-01-05 12:20] LABS: ACTIVATED PTT 52.6 SECONDS (26.9-34.4)
--- NOTE | 2017-01-05 12:33 | PN ---
Progress Note (short form) - Note Progress Note: Renal Follow up for ESRD/Volume overload Pt seen and examined during isolated UF in the HD unit continues to feel bloated and full no sob, chest pain, abd pain BP stable, AVF with good flow Goal UF is 2.5L Vital Signs Temperature 97.4 F L 01/05/17 10:55 Pulse Rate 85 01/05/17 12:00 Respiratory Rate 18 01/05/17 12:00 Blood Pressure 148/97 01/05/17 12:00 O2 Sat by Pulse Oximetry (%) 98 01/04/17 20:31 Intake & Output 01/02/17 01/03/17 01/04/17 01/05/17 23:59 23:59 23:59 23:59 Intake Total 5038 949 4354 525 Balance 3834 756 8385 525 Weight 161 lb 170 lb 12.8 oz NAD, awake and alert RRR, No M/R Dec BS at lung bases, no rales soft NT/ND 1+ edema in LE, no cyanosis CBC, BMP 01/04/17 14:00 01/05/17 11:15 Current Medications Acetaminophen (Tylenol -) 325 mg PO Q6H PRN PRN Reason: PAIN Last Admin: 01/04/17 14:34 Dose: 325 mg Acetaminophen (Tylenol -) 325 mg PO Q6H PRN PRN Reason: PAIN Last Admin: 01/03/17 16:16 Dose: 325 mg Clonidine (Catapres -) 0.3 mg PO TID [facility] Last Admin: 01/05/17 06:05 Dose: 0.3 mg Gabapentin (Neurontin -) 200 mg PO TID [facility] Last Admin: 01/05/17 06:05 Dose: 200 mg Heparin Sodium (Porcine) (Heparin -) 5,000 unit IVPUSH PRN PRN PRN Reason: Heparin Last Admin: 01/03/17 00:07 Dose: 5,000 unit Heparin Sodium (Porcine) (Heparin -) 1,000 unit IVPUSH PRN PRN Last Admin: 01/01/17 23:04 Dose: 1,000 unit Hydralazine HCl (Apresoline -) 50 mg PO TID [facility] Last Admin: 01/05/17 06:05 Dose: 50 mg Heparin Sodium (Porcine) 25, (000 unit/ Sodium Chloride) 500 mls @ 16 mls/hr IV TITR ROSA MARIA; 800 UNIT/HR PRN Reason: Protocol Last Admin: 01/05/17 06:40 Dose: 34 mls/hr Insulin Aspart (Novolog Vial Sliding Scale -) 1 vial SQ ACHS [facility] PRN Reason: Protocol Last Admin: 01/05/17 10:29 Dose: Not Given Insulin Detemir (Levemir Vial) 15 units SQ BID@0700,2200 [facility] Last Admin: 01/05/17 06:30 Dose: 15 units Labetalol HCl (Normodyne -) 400 mg PO TID [facility] Last Admin: 01/05/17 06:05 Dose: 400 mg Losartan Potassium (Cozaar -) 100 mg PO DAILY [facility] Last Admin: 01/05/17 08:59 Dose: 100 mg Metoclopramide HCl (Reglan -) 5 mg PO TIDAC [facility] Last Admin: 01/05/17 11:01 Dose: Not Given Nifedipine (Procardia Xl -) 90 mg PO DAILY [facility] Last Admin: 01/05/17 08:59 Dose: 90 mg Oxycodone HCl (Roxicodone -) 10 mg PO Q4H PRN PRN Reason: PAIN Last Admin: 01/05/17 06:28 Dose: 10 mg Sevelamer Carbonate (Renvela -) 3,200 mg PO TIDCM [facility] Last Admin: 01/05/17 08:59 Dose: 3,200 mg Warfarin Sodium 5 mg/ Warfarin (Sodium 2 mg) 7 mg PO DAILY@1800 [facility] 26 year old woman with PMhx of ESRD on Hd (MWF), Hypertension, DM Type 1, Hx of DVT who presents with right sided pleuretic chest pain and found to have a suspected/small PE on CTA and volume expansion. Pt started to develop the pleuretic chest pain yesterday with dialysis. #Right sided PE w/o evidence of DVT a/c as per primary team f/u INR #ESRD on HD with Fluid overload for isolated UF today with goal UF 2.5L #Insulin dependent DM continue insulin as per primary #Hypertension continue Labetalol, Clondine, Losartan, Nifedpine #CKD related Anemia will continue Epogen with HD #Renal Osteodystrophy renvela to 3200mg TID with meals Thank you will follow Nathan Vo DO Problem List - Problems (1) Chest pain Code(s): R07.9 - CHEST PAIN, UNSPECIFIED Qualifiers: Chest pain type: pleurodynia Qualified Code(s): R07.81 - Pleurodynia; R07.81 - Pleurodynia (2) Pulmonary embolism Code(s): I26.99 - OTHER PULMONARY EMBOLISM WITHOUT ACUTE COR PULMONALE Qualifiers: Pulmonary embolism type: other Chronicity: acute Acute cor pulmonale presence: without acute cor pulmonale Qualified Code(s): I26.99 - Other pulmonary embolism without acute cor pulmonale; I26.99 - Other pulmonary embolism without acute cor pulmonale; I26.99 - Other pulmonary embolism without acute cor pulmonale; I26.99 - Other pulmonary embolism without acute cor pulmonale (3) ESRD (end stage renal disease) on dialysis Code(s): N18.6 - END STAGE RENAL DISEASE Z99.2 - DEPENDENCE ON RENAL DIALYSIS (4) HTN (hypertension) Code(s): I10 - ESSENTIAL (PRIMARY) HYPERTENSION Qualifiers: Hypertension type: renovascular hypertension Qualified Code(s): I15.0 - Renovascular hypertension; I15.0 - Renovascular hypertension; I15.0 - Renovascular hypertension (5) Anemia Code(s): D64.9 - ANEMIA, UNSPECIFIED Qualifiers: Folate deficiency anemia type: dietary (6) Diabetes mellitus, insulin dependent (IDDM), uncontrolled Code(s): E10.65 - TYPE 1 DIABETES MELLITUS WITH HYPERGLYCEMIA Qualifiers: Diabetes mellitus complication status: with unspecified complications Qualified Code(s): E10.8 - Type 1 diabetes mellitus with unspecified complications; E10.8 - Type 1 diabetes mellitus with unspecified complications; E10.8 - Type 1 diabetes mellitus with unspecified complications; E10.8 - Type 1 diabetes mellitus with unspecified complications; E10.65 - Type 1 diabetes mellitus with hyperglycemia; E10.65 - Type 1 diabetes mellitus with hyperglycemia; E10.65 - Type 1 diabetes mellitus with hyperglycemia; E10.65 - Type 1 diabetes mellitus with hyperglycemia
[2017-01-05] MEDS: ACETAMINOPHEN 325 MG TABLET (FP) PO PRN (14:42)
[2017-01-05] MEDS ORDERED: WARFARIN NA 5 MG TABLET (UD) ONE (17:36)
[2017-01-05] MEDS ORDERED: WARFARIN NA 2 MG TABLET (UD) ONE (17:36)
[2017-01-05] MEDS: WARFARIN NA 5 MG, WARFARIN NA 2 MG PO SCH (17:42)
[2017-01-06] MEDS: oxyCODONE HCL 5 MG TABLET PO PRN ×4 (00:09→22:16)
[2017-01-06] MEDS: hydrALAZINE HCL 50 MG TABLET (FP) PO SCH ×5 (06:26→21:27)
[2017-01-06] MEDS: cloNIDine HCL 0.1 MG TABLET PO SCH ×4 (06:26→22:03)
[2017-01-06] MEDS: GABAPENTIN 100 MG CAPSULE (FP) PO SCH ×3 (06:26→21:26)
[2017-01-06] MEDS: INSULIN SLIDING SCALE (NOVOLOG) 1 VIAL SQ SCH ×4 (06:27→21:26)
[2017-01-06] MEDS: LABETALOL HCL 200 MG TABLET (FP) PO SCH ×6 (06:27→21:26)
[2017-01-06] MEDS: METOCLOPRAMIDE HCL 10 MG TABLET (FP) PO SCH ×3 (06:27→19:12)
[2017-01-06] MEDS: INSULIN DETEMIR 100 UNITS/ML MDV SQ SCH ×2 (06:27→21:27)
[2017-01-06] MEDS: ACETAMINOPHEN 325 MG TABLET (FP) PO PRN ×2 (07:39→14:00)
[2017-01-06] MEDS: EPOETIN ALFA 10,000 UNIT/1 ML VIAL IVPUSH ONE ×2 (08:31→11:27)
[2017-01-06 08:42] LABS: MCH 27.5 pg (25.7-33.7); MCHC 31.2 g/dl (32.0-36.0); MEAN CELL VOLUME 88.2 fl (80-96); MEAN PLT VOLUME 9.3 fl (7.5-11.1); PLATELET COUNT 348 K/MM3 (134-434); RDW 17.2 % (11.6-15.6); WHITE BLOOD COUNT 8.1 K/mm3 (4.0-10.0)
[2017-01-06 08:56] LABS: INR 1.87 (0.82-1.09); PROTHROMBIN TIME (PATIENT) 20.8 SEC (9.98-11.88)
[2017-01-06] MEDS: SEVELAMER CARBONATE 800 MG TAB (FP) PO SCH ×3 (09:45→17:01)
[2017-01-06] MEDS: NIFEdipine E.R. 90 MG TABLET (FP) PO SCH (09:46)
[2017-01-06] MEDS: LOSARTAN POTASSIUM 50 MG TABLET (FP) PO SCH (09:48)
--- NOTE | 2017-01-06 11:35 | PN ---
Progress Note (short form) - Note Progress Note: Renal Follow up for ESRD/Volume overload Pt seen and examined during dialysis BP very high 220/110 AVF with good flow and access pressures are WNL UF goal is 4L (pt getting PRBC) getting 2 PRBC transfusion Vital Signs Temperature 97.4 F L 01/06/17 07:55 Pulse Rate 95 H 01/06/17 11:00 Respiratory Rate 18 01/06/17 11:00 Blood Pressure 206/107 01/06/17 11:00 O2 Sat by Pulse Oximetry (%) 100 01/05/17 21:00 Intake & Output 01/03/17 01/04/17 01/05/17 01/06/17 23:59 23:59 23:59 23:59 Intake Total 933 1700 1669 238 Balance 933 1700 1669 238 Weight 170 lb 12.8 oz 170 lb 9.6 oz NAD, awake and alert RRR, No M/R Dec BS at lung bases, no rales soft NT/ND 1+ edema in LE, no cyanosis CBC, BMP 01/06/17 08:00 01/05/17 11:15 Current Medications Acetaminophen (Tylenol -) 325 mg PO Q6H PRN PRN Reason: PAIN Last Admin: 01/05/17 14:42 Dose: 325 mg Acetaminophen (Tylenol -) 325 mg PO Q6H PRN PRN Reason: PAIN Last Admin: 01/06/17 07:39 Dose: 325 mg Clonidine (Catapres -) 0.3 mg PO TID [facility] Last Admin: 01/06/17 09:47 Dose: 0.3 mg Gabapentin (Neurontin -) 200 mg PO TID [facility] Last Admin: 01/06/17 06:26 Dose: Not Given Heparin Sodium (Porcine) (Heparin -) 5,000 unit IVPUSH PRN PRN PRN Reason: Heparin Last Admin: 01/03/17 00:07 Dose: 5,000 unit Heparin Sodium (Porcine) (Heparin -) 1,000 unit IVPUSH PRN PRN Last Admin: 01/01/17 23:04 Dose: 1,000 unit Hydralazine HCl (Apresoline -) 50 mg PO TID [facility] Last Admin: 01/06/17 09:49 Dose: 50 mg Heparin Sodium (Porcine) 25, (000 unit/ Sodium Chloride) 500 mls @ 16 mls/hr IV TITR [facility]IA; 800 UNIT/HR PRN Reason: Protocol Last Admin: 01/05/17 23:00 Dose: 34 mls/hr Insulin Aspart (Novolog Vial Sliding Scale -) 1 vial SQ ACHS [facility] PRN Reason: Protocol Last Admin: 01/06/17 06:27 Dose: Not Given Insulin Detemir (Levemir Vial) 15 units SQ BID@0700,2200 [facility] Last Admin: 01/06/17 06:27 Dose: Not Given Labetalol HCl (Normodyne -) 400 mg PO TID [facility] Last Admin: 01/06/17 11:12 Dose: 400 mg Losartan Potassium (Cozaar -) 100 mg PO DAILY [facility] Last Admin: 01/06/17 09:48 Dose: 100 mg Metoclopramide HCl (Reglan -) 5 mg PO TIDAC [facility] Last Admin: 01/06/17 06:27 Dose: Not Given Nifedipine (Procardia Xl -) 90 mg PO DAILY [facility] Last Admin: 01/06/17 09:46 Dose: 90 mg Oxycodone HCl (Roxicodone -) 10 mg PO Q4H PRN PRN Reason: PAIN Last Admin: 01/06/17 07:37 Dose: 10 mg Sevelamer Carbonate (Renvela -) 3,200 mg PO TIDCM [facility] Last Admin: 01/06/17 09:45 Dose: 3,200 mg Warfarin Sodium 5 mg/ Warfarin (Sodium 2 mg) 7 mg PO DAILY@1800 [facility] Last Admin: 01/05/17 17:42 Dose: 7 mg 26 year old woman with PMhx of ESRD on Hd (MWF), Hypertension, DM Type 1, Hx of DVT who presents with right sided pleuretic chest pain and found to have a suspected/small PE on CTA and volume expansion. Pt started to develop the pleuretic chest pain yesterday with dialysis. #Hypertensive Urgency Given all AM meds with dialysis UF goal increased to 4L will monitor BP [id number], if no improvement may need more meds (i.e. IV hydralazine or nitro gtt) holding Epogen b/c of high BP #Right sided PE w/o evidence of DVT a/c as per primary team f/u INR #Worsening Anemia check stool occult blood to r/o GI bleed given recent start of A/C to get 2 prbc transfused with HD today #ESRD on HD with Fluid overload Currently tolerating HD #Insulin dependent DM continue insulin as per primary #Hypertension continue Labetalol, Clondine, Losartan, Nifedpine #Renal Osteodystrophy renvela to 3200mg TID with meals Thank you will follow Nathan Vo DO Problem List - Problems (1) Chest pain Code(s): R07.9 - CHEST PAIN, UNSPECIFIED Qualifiers: Chest pain type: pleurodynia Qualified Code(s): R07.81 - Pleurodynia; R07.81 - Pleurodynia (2) Pulmonary embolism Code(s): I26.99 - OTHER PULMONARY EMBOLISM WITHOUT ACUTE COR PULMONALE Qualifiers: Pulmonary embolism type: other Chronicity: acute Acute cor pulmonale presence: without acute cor pulmonale Qualified Code(s): I26.99 - Other pulmonary embolism without acute cor pulmonale; I26.99 - Other pulmonary embolism without acute cor pulmonale; I26.99 - Other pulmonary embolism without acute cor pulmonale; I26.99 - Other pulmonary embolism without acute cor pulmonale (3) ESRD (end stage renal disease) on dialysis Code(s): N18.6 - END STAGE RENAL DISEASE Z99.2 - DEPENDENCE ON RENAL DIALYSIS (4) HTN (hypertension) Code(s): I10 - ESSENTIAL (PRIMARY) HYPERTENSION Qualifiers: Hypertension type: renovascular hypertension Qualified Code(s): I15.0 - Renovascular hypertension; I15.0 - Renovascular hypertension; I15.0 - Renovascular hypertension (5) Anemia Code(s): D64.9 - ANEMIA, UNSPECIFIED Qualifiers: Folate deficiency anemia type: dietary (6) Diabetes mellitus, insulin dependent (IDDM), uncontrolled Code(s): E10.65 - TYPE 1 DIABETES MELLITUS WITH HYPERGLYCEMIA Qualifiers: Diabetes mellitus complication status: with unspecified complications Qualified Code(s): E10.8 - Type 1 diabetes mellitus with unspecified complications; E10.8 - Type 1 diabetes mellitus with unspecified complications; E10.8 - Type 1 diabetes mellitus with unspecified complications; E10.8 - Type 1 diabetes mellitus with unspecified complications; E10.65 - Type 1 diabetes mellitus with hyperglycemia; E10.65 - Type 1 diabetes mellitus with hyperglycemia; E10.65 - Type 1 diabetes mellitus with hyperglycemia; E10.65 - Type 1 diabetes mellitus with hyperglycemia
[2017-01-06] MEDS ORDERED: hydrALAZINE HCL 20 MG/ML VIAL IVPUSH PRN (11:39)
[2017-01-06] MEDS ORDERED: NICARDIPINE 25 MG in DEXTROSE 5%-WATER - 240 ML IVPB SCH ×2 (13:00→23:30)
--- NOTE | 2017-01-06 14:07 | CONSULT ---
Consultation: REQUESTING PROVIDER: CONSULT REQUEST: We have been asked to medically evaluate this patient for (HTN urgency). HISTORY OF PRESENT ILLNESS: This is a 26 yo F with PMh of ESRD on HD (MWF), HTN, IDDM1, Hx of DVT (not on a/ c due to hx GIB on coum) and prior admission due to vol overload and HTN, who presented with R sided pleuritic CP, was found to have a small PE on CTA w volume expansion. Has been treated on floors, BP 140-180 systolic, when developed severe h/a and HTN 227/123 after HD (removed 4L). Xferred to ICU for further management. Patient uncomfortable, w.o focal neuro deficits. aaox3. BP 170's /120's after analgesia. C/o midsternal reproducible CP (EKG unremarkable for a/c). Also c/o SOB, O2 sats 96% on 2L NC. Stat CT head ordered. REVIEW OF SYSTEMS: CONSTITUTIONAL: Absent: fever, chills, generalized weakness HEENT: Absent: rhinorrhea, nasal congestion, throat pain CARDIOVASCULAR: Absent: syncope, palpitations, irregular heart rate, lightheadedness RESPIRATORY: Absent: cough, orthopnea, wheezing, stridor, hemoptysis GASTROINTESTINAL: Absent: abdominal pain, abdominal distension, nausea, vomiting, diarrhea, constipation, melena, hematochezia GENITOURINARY: Absent: dysuria, frequency, urgency MUSCULOSKELETAL: Absent: back pain, neck pain SKIN: Absent: rash, itching, pallor HEMATOLOGIC/IMMUNOLOGIC: Absent: frequent infections ENDOCRINE: Absent: heat intolerance, cold intolerance NEUROLOGIC: Absent: headache, focal weakness or paresthesias, seizure, mental status changes , bladder or bowel incontinence PSYCHIATRIC: Absent: anxiety PHYSICAL EXAMINATION Vital Signs - 24 hr 01/05/17 01/05/17 01/05/17 16:39 18:00 21:00 Temperature 97.9 F Pulse Rate 85 Respiratory 18 Rate Blood Pressure 135/84 O2 Sat by Pulse 98 100 Oximetry (%) 01/05/17 01/06/17 01/06/17 22:00 02:00 06:00 Temperature 98 F 97.5 F L 97.5 F L Pulse Rate 87 73 89 Respiratory 20 20 20 Rate Blood Pressure 145/80 120/68 164/109 O2 Sat by Pulse Oximetry (%) 01/06/17 01/06/17 01/06/17 07:45 07:55 08:00 Temperature 97.4 F L Pulse Rate 90 87 87 Respiratory 18 18 18 Rate Blood Pressure 182/109 180/116 183/116 O2 Sat by Pulse Oximetry (%) 01/06/17 01/06/17 01/06/17 08:30 09:00 09:30 Temperature Pulse Rate 89 91 H 94 H Respiratory 18 18 18 Rate Blood Pressure 183/112 185/102 200/119 O2 Sat by Pulse 96 Oximetry (%) 01/06/17 01/06/17 01/06/17 10:00 10:30 11:00 Temperature Pulse Rate 94 H 94 H 95 H Respiratory 18 18 18 Rate Blood Pressure 196/108 205/103 206/107 O2 Sat by Pulse Oximetry (%) 01/06/17 01/06/17 01/06/17 11:30 11:45 11:50 Temperature Pulse Rate 97 H 88 99 H Respiratory 18 18 18 Rate Blood Pressure 217/105 227/123 204/123 O2 Sat by Pulse Oximetry (%) 01/06/17 12:30 Temperature Pulse Rate 94 H Respiratory 18 Rate Blood Pressure 196/117 O2 Sat by Pulse Oximetry (%) GENERAL: Awake, alert, and fully oriented, in no acute distress. HEAD: Normal with no signs of trauma. EYES: Pupils equal, round and reactive to light, extraocular movements intact, sclera anicteric, conjunctiva clear. No lid lag. EARS, NOSE, THROAT: Moist mucous membranes. NECK: + JVD at 30 degree recline LUNGS: Breath sounds equal, clear to auscultation bilaterally. HEART: tachy rate and reg rhythm, normal S1 and S2 ABDOMEN: Soft, nontender, moderately distended, normoactive bowel sounds MUSCULOSKELETAL: No CVA tenderness. UPPER EXTREMITIES: 2+ pulses, No peripheral edema. LOWER EXTREMITIES: 2+ pulses, warm, well-perfused. No calf tenderness. 4+ peripheral edema. NEUROLOGICAL: Cranial nerves II-XII intact. Normal speech. strength 5/5 in all extremities, sensation intact PSYCHIATRIC: Cooperative. Good eye contact. Appropriate mood and affect. SKIN: Warm, dry Laboratory Results - last 24 hr 01/04/17 01/05/17 01/05/17 14:00 14:17 17:23 WBC RBC Hgb Hct MCV MCH MCHC RDW Plt Count MPV PT with INR INR POC Glucometer 132 198 Blood Type B POSITIVE Antibody Screen Negative Crossmatch See Detail 01/05/17 01/06/17 01/06/17 21:51 06:09 08:00 WBC 8.1 RBC 2.60 L Hgb 7.2 L Hct 22.9 L MCV 88.2 MCH 27.5 MCHC 31.2 L RDW 17.2 H Plt Count 348 MPV 9.3 PT with INR INR POC Glucometer 290 235 Blood Type Antibody Screen Crossmatch 01/06/17 08:00 WBC RBC Hgb Hct MCV MCH MCHC RDW Plt Count MPV PT with INR 20.80 H INR 1.87 H POC Glucometer Blood Type Antibody Screen Crossmatch Active Medications Generic Name Dose Route Start Last Admin Trade Name Freq PRN Reason Stop Dose Admin Acetaminophen 325 mg 12/30/16 21:41 01/06/17 14:00 Tylenol - PO 325 mg Q6H PRN Administration PAIN Acetaminophen 325 mg 12/30/16 22:13 01/06/17 07:39 Tylenol - PO 325 mg Q6H PRN Administration PAIN Clonidine 0.3 mg 12/30/16 22:00 01/06/17 09:47 Catapres - PO 0.3 mg TID ROSA MARIA Administration Gabapentin 200 mg 01/03/17 15:00 01/06/17 06:26 Neurontin - PO Not Given TID ROSA MARIA Heparin Sodium (Porcine) 5,000 unit 12/30/16 23:03 01/03/17 00:07 Heparin - IVPUSH 5,000 unit PRN PRN Administration Heparin Heparin Sodium (Porcine) 1,000 unit 01/01/17 13:28 01/01/17 23:04 Heparin - IVPUSH 1,000 unit PRN PRN Administration Hydralazine HCl 50 mg 01/02/17 14:00 01/06/17 09:49 Apresoline - PO 50 mg TID ROSA MARIA Administration Hydralazine HCl 10 mg 01/06/17 11:39 01/06/17 12:03 Apresoline Injection - IVPUSH 10 mg Q6H PRN Administration HYPERTENSION Heparin Sodium (Porcine) 25, 500 mls @ 16 mls/hr 12/30/16 23:15 01/05/17 23:00 000 unit/ Sodium Chloride IV 34 mls/hr TITR ROSA MARIA Administration Protocol 800 UNIT/HR Nicardipine HCl 25 mg/ 250 mls @ 25 mls/hr 01/06/17 13:00 Dextrose IVPB TITR [facility] Protocol 2.5 MG/HR Insulin Aspart 1 vial 12/30/16 22:00 01/06/17 13:40 Novolog Vial Sliding Scale - SQ Not Given ACHS [facility] Protocol Insulin Detemir 15 units 12/30/16 22:00 01/06/17 06:27 Levemir Vial SQ Not Given BID@0700,2200 [facility] Labetalol HCl 400 mg 12/30/16 22:00 01/06/17 11:12 Normodyne - PO 400 mg TID [facility] Administration Losartan Potassium 100 mg 12/31/16 10:00 01/06/17 09:48 Cozaar - PO 100 mg DAILY ROSA MARIA Administration Metoclopramide HCl 5 mg 12/31/16 07:00 01/06/17 13:34 Reglan - PO Not Given TIDAC [facility] Nifedipine 90 mg 12/31/16 10:00 01/06/17 09:46 Procardia Xl - PO 90 mg DAILY ROSA MARIA Administration Oxycodone HCl 10 mg 01/03/17 15:00 01/06/17 14:01 Roxicodone - PO 10 mg Q4H PRN Administration PAIN Sevelamer Carbonate 3,200 mg 01/01/17 12:45 01/06/17 13:40 Renvela - PO Not Given TIDCM [facility] Warfarin Sodium 5 mg/ Warfarin 7 mg 01/05/17 18:00 01/05/17 17:42 Sodium 2 mg PO 7 mg DAILY@1800 [facility] Administration ASSESSMENT/PLAN: 26 year old woman with PMhx of ESRD on Hd (MWF), Hypertension, DM Type 1, Hx of DVT who presents with right sided pleuretic chest pain and found to have a suspected/small PE on CTA and volume expansion. Xferrred to ICU with HTN Urgency and severe h/a. Neuro *severe H/A ins etting of HTN urgency -AAOx3, no focal neuro deficits -likely mild HTN erncephalopathy -CT head w/o contrast ordered stat -analgesia CV *Hypertensive Urgency -BP improved to 177/123 after analgesia; 10 IV hydralazine stat -start cardene gtt if no bleed on CT head BP goal 180 systolic -If BP is at goal, give standong PO BP meds (Labetalol, Clondine, Losartan, Nifedpine) *Right sided PE w/o DVT -contineu hep -will need to resume a/c Coum, likley life long -f/u INR *Anemia in setting of ckd -h/h trending down -stool occult r/o GIB in light of history -transfused 2 pRBC with HD -f/u h/h Endocrine *IDDM -levemir 15 u bid -ISS achs *Renal Osteodystrophy -renvela 3200mg TID FEN No IVF f/u lytes after HD diabetic na restricted diet Hep, ppi Dispo: We will continue to follow the patient. Thank you for this consultative opportunity. Problem List - Problems (1) Chest pain Code(s): R07.9 - CHEST PAIN, UNSPECIFIED Qualifiers: Chest pain type: pleurodynia Qualified Code(s): R07.81 - Pleurodynia; R07.81 - Pleurodynia (2) Leukocytosis Code(s): D72.829 - ELEVATED WHITE BLOOD CELL COUNT, UNSPECIFIED (3) Pulmonary HTN Code(s): I27.20 - PULMONARY HYPERTENSION, UNSPECIFIED (4) Pulmonary embolism Code(s): I26.99 - OTHER PULMONARY EMBOLISM WITHOUT ACUTE COR PULMONALE Qualifiers: Pulmonary embolism type: other Chronicity: acute Acute cor pulmonale presence: without acute cor pulmonale Qualified Code(s): I26.99 - Other pulmonary embolism without acute cor pulmonale; I26.99 - Other pulmonary embolism without acute cor pulmonale; I26.99 - Other pulmonary embolism without acute cor pulmonale; I26.99 - Other pulmonary embolism without acute cor pulmonale (5) ESRD (end stage renal disease) on dialysis Code(s): N18.6 - END STAGE RENAL DISEASE Z99.2 - DEPENDENCE ON RENAL DIALYSIS (6) HTN (hypertension) Code(s): I10 - ESSENTIAL (PRIMARY) HYPERTENSION Qualifiers: Hypertension type: renovascular hypertension Qualified Code(s): I15.0 - Renovascular hypertension; I15.0 - Renovascular hypertension; I15.0 - Renovascular hypertension (7) Hypertensive urgency Code(s): I16.0 - HYPERTENSIVE URGENCY Visit type - Emergency Visit Emergency Visit: Yes ED Registration Date: 12/30/16 Care time: The patient presented to the Emergency Department on the above date and was hospitalized for further evaluation of their emergent condition. - New Patient This patient is new to me today: No - Critical Care Critical Care patient: Yes Total Critical Care Time (in minutes): 35 Critical Care Statement: The care of this patient involved high complexity decision making to prevent further life threatening deterioration of the patient 's condition and/or to evaluate & treat vital organ system(s) failure or risk of failure.
[2017-01-06] MEDS ORDERED: hydrALAZINE HCL 20 MG/ML VIAL IVPUSH ONE (14:14)
--- NOTE | 2017-01-06 14:23 | PN ---
Teaching Attending Note Name of Resident: Nurys Phoenix ATTENDING PHYSICIAN STATEMENT I saw and evaluated the patient. I reviewed the resident's note and discussed the case with the resident. I agree with the resident's findings and plan as documented. SUBJECTIVE: Pt seen and examined in the ICU. Transferred down after uncontrolled HTN after HD. Received 2 units PRBC. Currently somnolent but arousable. OBJECTIVE: Last Vital Signs Temp Pulse Resp BP Pulse Ox 97.4 F L 94 H 18 196/117 96 01/06/17 07:55 01/06/17 12:30 01/06/17 12:30 01/06/17 12:30 01/06/17 09:00 Intake & Output 01/03/17 01/04/17 01/05/17 01/06/17 23:59 23:59 23:59 23:59 Intake Total 933 1700 1669 238 Balance 933 1700 1669 238 Weight 170 lb 12.8 oz 170 lb 9.6 oz Gen: somnolent but arousable Heart: RRR Lung: decreased breath sounds at the bases Abd: soft, nontender Ext: + edema CBC, BMP 01/06/17 08:00 01/05/17 11:15 Active Medications Acetaminophen (Tylenol -) 325 mg PO Q6H PRN PRN Reason: PAIN Last Admin: 01/06/17 14:00 Dose: 325 mg Acetaminophen (Tylenol -) 325 mg PO Q6H PRN PRN Reason: PAIN Last Admin: 01/06/17 07:39 Dose: 325 mg Clonidine (Catapres -) 0.3 mg PO TID [facility] Last Admin: 01/06/17 09:47 Dose: 0.3 mg Gabapentin (Neurontin -) 200 mg PO TID [facility] Last Admin: 01/06/17 06:26 Dose: Not Given Heparin Sodium (Porcine) (Heparin -) 5,000 unit IVPUSH PRN PRN PRN Reason: Heparin Last Admin: 01/03/17 00:07 Dose: 5,000 unit Heparin Sodium (Porcine) (Heparin -) 1,000 unit IVPUSH PRN PRN Last Admin: 01/01/17 23:04 Dose: 1,000 unit Hydralazine HCl (Apresoline -) 50 mg PO TID [facility] Last Admin: 01/06/17 09:49 Dose: 50 mg Hydralazine HCl (Apresoline Injection -) 10 mg IVPUSH Q6H PRN PRN Reason: HYPERTENSION Last Admin: 01/06/17 12:03 Dose: 10 mg Hydralazine HCl (Apresoline Injection -) 10 mg IVPUSH ONCE ONE Stop: 01/06/17 14:15 Heparin Sodium (Porcine) 25, (000 unit/ Sodium Chloride) 500 mls @ 16 mls/hr IV TITR ROSA MARIA; 800 UNIT/HR PRN Reason: Protocol Last Admin: 01/05/17 23:00 Dose: 34 mls/hr Nicardipine HCl 25 mg/ (Dextrose) 250 mls @ 25 mls/hr IVPB TITR ROSA MARIA; 2.5 MG/HR PRN Reason: Protocol Insulin Aspart (Novolog Vial Sliding Scale -) 1 vial SQ ACHS ROSA MARIA PRN Reason: Protocol Last Admin: 01/06/17 13:40 Dose: Not Given Insulin Detemir (Levemir Vial) 15 units SQ BID@0700,2200 [facility] Last Admin: 01/06/17 06:27 Dose: Not Given Labetalol HCl (Normodyne -) 400 mg PO TID [facility] Last Admin: 01/06/17 11:12 Dose: 400 mg Losartan Potassium (Cozaar -) 100 mg PO DAILY [facility] Last Admin: 01/06/17 09:48 Dose: 100 mg Metoclopramide HCl (Reglan -) 5 mg PO TIDAC [facility] Last Admin: 01/06/17 13:34 Dose: Not Given Nifedipine (Procardia Xl -) 90 mg PO DAILY [facility] Last Admin: 01/06/17 09:46 Dose: 90 mg Oxycodone HCl (Roxicodone -) 10 mg PO Q4H PRN PRN Reason: PAIN Last Admin: 01/06/17 14:01 Dose: 10 mg Sevelamer Carbonate (Renvela -) 3,200 mg PO TIDCM [facility] Last Admin: 01/06/17 13:40 Dose: Not Given Warfarin Sodium 5 mg/ Warfarin (Sodium 2 mg) 7 mg PO DAILY@1800 [facility] Last Admin: 01/05/17 17:42 Dose: 7 mg ASSESSMENT AND PLAN: Hypertensive Urgency r/o Hypertensive Encephalopathy vs Intracranial Bleed Acute Pulmonary Embolism ESRD on HD Pulmonary HTN HTN DM - CT head noncontrast - start cardene gtt if no bleed seen on CT head - titrate PO BP meds - continue anticoagulation - HD per renal with ultrafiltration - monitor H/H, lytes - ICU monitoring
--- NOTE | 2017-01-06 15:33 | PN ---
Progress Note, Physician Chief Complaint: In dialysis very hypertensive has a headache - Current Medication List Current Medications: Active Medications Acetaminophen (Tylenol -) 325 mg PO Q6H PRN PRN Reason: PAIN Last Admin: 01/06/17 14:00 Dose: 325 mg Acetaminophen (Tylenol -) 325 mg PO Q6H PRN PRN Reason: PAIN Last Admin: 01/06/17 07:39 Dose: 325 mg Clonidine (Catapres -) 0.3 mg PO TID [facility] Last Admin: 01/06/17 09:47 Dose: 0.3 mg Gabapentin (Neurontin -) 200 mg PO TID [facility] Last Admin: 01/06/17 06:26 Dose: Not Given Heparin Sodium (Porcine) (Heparin -) 5,000 unit IVPUSH PRN PRN PRN Reason: Heparin Last Admin: 01/03/17 00:07 Dose: 5,000 unit Heparin Sodium (Porcine) (Heparin -) 1,000 unit IVPUSH PRN PRN Last Admin: 01/01/17 23:04 Dose: 1,000 unit Hydralazine HCl (Apresoline -) 50 mg PO TID [facility] Last Admin: 01/06/17 09:49 Dose: 50 mg Hydralazine HCl (Apresoline Injection -) 10 mg IVPUSH Q6H PRN PRN Reason: HYPERTENSION Last Admin: 01/06/17 12:03 Dose: 10 mg Heparin Sodium (Porcine) 25, (000 unit/ Sodium Chloride) 500 mls @ 16 mls/hr IV TITR ROSA MARIA; 800 UNIT/HR PRN Reason: Protocol Last Admin: 01/05/17 23:00 Dose: 34 mls/hr Nicardipine HCl 25 mg/ (Dextrose) 250 mls @ 25 mls/hr IVPB TITR ROSA MARIA; 2.5 MG/HR PRN Reason: Protocol Insulin Aspart (Novolog Vial Sliding Scale -) 1 vial SQ ACHS ROSA MARIA PRN Reason: Protocol Last Admin: 01/06/17 13:40 Dose: Not Given Insulin Detemir (Levemir Vial) 15 units SQ BID@0700,2200 [facility] Last Admin: 01/06/17 06:27 Dose: Not Given Labetalol HCl (Normodyne -) 400 mg PO TID [facility] Last Admin: 01/06/17 11:12 Dose: 400 mg Losartan Potassium (Cozaar -) 100 mg PO DAILY [facility] Last Admin: 01/06/17 09:48 Dose: 100 mg Metoclopramide HCl (Reglan -) 5 mg PO TIDAC [facility] Last Admin: 01/06/17 13:34 Dose: Not Given Nifedipine (Procardia Xl -) 90 mg PO DAILY [facility] Last Admin: 01/06/17 09:46 Dose: 90 mg Sevelamer Carbonate (Renvela -) 3,200 mg PO TIDCM [facility] Last Admin: 01/06/17 13:40 Dose: Not Given Warfarin Sodium 5 mg/ Warfarin (Sodium 2 mg) 7 mg PO DAILY@1800 [facility] Last Admin: 01/05/17 17:42 Dose: 7 mg - Objective Vital Signs: Vital Signs Temperature 98.8 F 01/06/17 14:30 Pulse Rate 100 H 01/06/17 14:30 Respiratory Rate 18 01/06/17 14:30 Blood Pressure 200/114 01/06/17 14:30 O2 Sat by Pulse Oximetry (%) 96 01/06/17 09:00 Constitutional: Yes: Mild Distress Cardiovascular: Yes: Regular Rate and Rhythm Respiratory: Yes: Diminished Gastrointestinal: Yes: Normal Bowel Sounds, Soft. No: Distention, Tenderness Edema: Yes Labs: CBC, BMP 01/06/17 08:00 01/05/17 11:15 INR, PTT INR 1.87 (0.82-1.09) H 01/06/17 08:00 Problem List - Problems (1) Chest pain Code(s): R07.9 - CHEST PAIN, UNSPECIFIED Qualifiers: Chest pain type: pleurodynia Qualified Code(s): R07.81 - Pleurodynia; R07.81 - Pleurodynia (2) Pulmonary embolism Code(s): I26.99 - OTHER PULMONARY EMBOLISM WITHOUT ACUTE COR PULMONALE Qualifiers: Pulmonary embolism type: other Chronicity: acute Acute cor pulmonale presence: without acute cor pulmonale Qualified Code(s): I26.99 - Other pulmonary embolism without acute cor pulmonale; I26.99 - Other pulmonary embolism without acute cor pulmonale; I26.99 - Other pulmonary embolism without acute cor pulmonale; I26.99 - Other pulmonary embolism without acute cor pulmonale (3) ESRD (end stage renal disease) on dialysis Code(s): N18.6 - END STAGE RENAL DISEASE Z99.2 - DEPENDENCE ON RENAL DIALYSIS (4) HTN (hypertension) Code(s): I10 - ESSENTIAL (PRIMARY) HYPERTENSION Qualifiers: Hypertension type: renovascular hypertension Qualified Code(s): I15.0 - Renovascular hypertension; I15.0 - Renovascular hypertension; I15.0 - Renovascular hypertension (5) Anemia Code(s): D64.9 - ANEMIA, UNSPECIFIED Qualifiers: Folate deficiency anemia type: dietary (6) Hypertensive urgency Code(s): I16.0 - HYPERTENSIVE URGENCY Assessment/Plan On Heparin +Coumadin s/p 2 units of PRBC check stool guaic to see if she is bleeding per rectum she has h/o upper gI bleeding IV Hydralazine given in dialysis, not much improvement in BP ?transfusion reaction spoke with Renal will transfer to ICU for better BP control- pt will be on Nicardipine drip
[2017-01-06] MEDS ORDERED: HEMOQUE TEST 1 EACH EACH ONE (16:19)
[2017-01-06] MEDS ORDERED: PT OWN MED DRAWER 7, Y5N ONE ×2 (16:36→21:02)
[2017-01-06] MEDS ORDERED: WARFARIN NA 5 MG TABLET (UD) ONE ×2 (16:58→22:11)
[2017-01-06] MEDS ORDERED: WARFARIN NA 2 MG TABLET (UD) ONE ×2 (16:58→22:12)
[2017-01-06] MEDS: WARFARIN NA 5 MG, WARFARIN NA 2 MG PO SCH ×3 (17:06→22:12)
[2017-01-06] MEDS ORDERED: LABETALOL HCL 200 MG TABLET (FP) PO ONE (17:15)
[2017-01-06] MEDS ORDERED: SODIUM CHLORIDE FOR INHALATION 3 ML VIAL.NEB IH ONE ×2 (19:59→22:50)
[2017-01-06] MEDS ORDERED: DEXTROSE 50%-WATER - 25 GM/50 ML VIAL IVPUSH PRN (20:00)
[2017-01-06] MEDS ORDERED: oxyCODONE HCL 5 MG TABLET ONE (22:15)
[2017-01-06] MEDS ORDERED: HEPARIN - 25,000 UNIT in SODIUM CHLORIDE 495 ML IV SCH (23:45)
[2017-01-06] MEDS ORDERED: HEPARIN NA (PORCINE) 5,000 UNITS/ML 1ML VIAL IVPUSH PRN ×2 (23:56)
[2017-01-07 06:22] LABS: MCH 28.3 pg (25.7-33.7); MCHC 32.6 g/dl (32.0-36.0); MEAN CELL VOLUME 86.8 fl (80-96); MEAN PLT VOLUME 9.7 fl (7.5-11.1); PLATELET COUNT 381 K/MM3 (134-434); RDW 17.5 % (11.6-15.6); WHITE BLOOD COUNT 10.4 K/mm3 (4.0-10.0)
[2017-01-07 06:28] LABS: INR 1.76 (0.82-1.09); PROTHROMBIN TIME (PATIENT) 19.6 SEC (9.98-11.88)
[2017-01-07 06:31] LABS: ACTIVATED PTT 43.3 SECONDS (26.9-34.4)
[2017-01-07] MEDS: LABETALOL HCL 200 MG TABLET (FP) PO SCH ×3 (06:33→21:53)
[2017-01-07] MEDS: cloNIDine HCL 0.1 MG TABLET PO SCH ×3 (06:33→21:52)
[2017-01-07] MEDS: INSULIN DETEMIR 100 UNITS/ML MDV SQ SCH ×2 (06:33→21:52)
[2017-01-07] MEDS: GABAPENTIN 100 MG CAPSULE (FP) PO SCH ×3 (06:33→21:52)
[2017-01-07] MEDS: hydrALAZINE HCL 50 MG TABLET (FP) PO SCH ×3 (06:33→21:51)
[2017-01-07] MEDS: INSULIN SLIDING SCALE (NOVOLOG) 1 VIAL SQ SCH ×4 (06:41→21:50)
[2017-01-07] MEDS: oxyCODONE HCL 5 MG TABLET PO PRN ×5 (06:45→23:04)
[2017-01-07] MEDS: METOCLOPRAMIDE HCL 10 MG TABLET (FP) PO SCH ×3 (06:45→15:44)
[2017-01-07 06:58] LABS: ALBUMIN 2.6 g/dl (3.4-5.0); ANION GAP 10 (8-16); CALCIUM 8.6 mg/dL (8.5-10.1); CO2 28 mmol/L (21-32); GLUCOSE,RANDOM 170 mg/dL (74-106); MAGNESIUM 1.9 mg/dL (1.8-2.4); PHOSPHOROUS 4.8 mg/dL (2.5-4.9); SGOT/AST 28 U/L (15-37)
[2017-01-07 07:11] LABS: BILIRUBIN,TOTAL 0.7 mg/dL (0.2-1.0); CREATININE 3.7 mg/dL (0.55-1.02); SGPT/ALT 31 U/L (12-78); TOT PROT 7.6 g/dl (6.4-8.2)
[2017-01-07 07:19] LABS: ALK PHOS 1439 U/L (45-117)
--- NOTE | 2017-01-07 07:37 | PN ---
Physical Exam: SUBJECTIVE: Patient seen and examined by me this AM - ALk Phos significantly elevated 1439. - CT head w/ no lesions, midline shift, gross infarct or bleed. - Pt started on Cardene gtt in PM yesterday, given hypertensive urgency and recalcitrant BP - In AM, pt BP much improved to high 130s systolic. Cardene gtt d/c'ed overnight. - Pt complaining only of mild chest pressure/discomfort. No longer w/ GUTIERRES. Denies SOB, cough, CP, lightheadness, vision changes, N/V, leg swelling or focal neuro deficits. - Received HD for last 3 days. Anemic to 7.2 yesterday, received 2 units w/ correction to 9.5. - Transfer to Telemetry today OBJECTIVE: Vital Signs Intake & Output 01/04/17 01/05/17 01/06/17 01/07/17 23:59 23:59 23:59 23:59 Intake Total 1700 1669 538 738 Balance 1700 1669 538 738 Weight 77.383 kg Period Temp Pulse Resp BP Sys/Ames Pulse Ox Last 24 Hr 97.4 F-98.8 F 81-100 16-20 120-227/69-123 96-96 GENERAL: The patient is awake, alert, and fully oriented, in no acute distress. HEAD: Normal with no signs of trauma. EYES: PERRL, extraocular movements intact, sclera anicteric, conjunctiva clear. No ptosis. ENT: Ears normal, nares patent, oropharynx clear without exudates, moist mucous membranes. NECK: Trachea midline, full range of motion, supple. LUNGS: Breath sounds equal, clear to auscultation bilaterally, no wheezes, no crackles, no accessory muscle use. HEART: Regular rate and rhythm, prominent S1, S2 without murmur, rub or gallop. ABDOMEN: Soft, nontender, nondistended, normoactive bowel sounds, no guarding, no rebound, no hepatosplenomegaly, no masses. EXTREMITIES: 2+ pulses, warm, well-perfused. 2+ BL non-pitting LE edema. Multiple healed ulcers/scars on anterior benitez on L leg and thigh. NEUROLOGICAL: Cranial nerves II through XII intact. 5/5 strenght in all 4 extremity. Normal sensation in all extremities. Normal speech, gait not observed. PSYCH: Normal mood, normal affect. Laboratory Results - last 24 hr CBC, BMP 01/07/17 05:10 01/07/17 05:10 01/04/17 01/06/17 01/06/17 14:00 08:00 08:00 WBC 8.1 RBC 2.60 L Hgb 7.2 L Hct 22.9 L MCV 88.2 MCH 27.5 MCHC 31.2 L RDW 17.2 H Plt Count 348 MPV 9.3 PT with INR 20.80 H INR 1.87 H PTT (Actin FS) Sodium Potassium Chloride Carbon Dioxide Anion Gap BUN Creatinine Creat Clearance w eGFR Random Glucose Calcium Phosphorus Magnesium Total Bilirubin AST ALT Alkaline Phosphatase Troponin I Total Protein Albumin Blood Type B POSITIVE Antibody Screen Negative Crossmatch See Detail 01/06/17 01/07/17 01/07/17 18:50 05:10 05:10 WBC 10.4 H RBC 3.36 L D Hgb 9.5 L D Hct 29.1 L D MCV 86.8 MCH 28.3 MCHC 32.6 RDW 17.5 H Plt Count 381 MPV 9.7 PT with INR INR PTT (Actin FS) Sodium 135 L Potassium 4.4 Chloride 97 L Carbon Dioxide 28 Anion Gap 10 BUN 50 H Creatinine 3.7 H Creat Clearance w eGFR 14.69 Random Glucose 170 H D Calcium 8.6 Phosphorus 4.8 Magnesium 1.9 Total Bilirubin 0.7 AST 28 D ALT 31 D Alkaline Phosphatase 1439 H Troponin I < 0.02 Total Protein 7.6 Albumin 2.6 L Blood Type Antibody Screen Crossmatch 01/07/17 05:10 WBC RBC Hgb Hct MCV MCH MCHC RDW Plt Count MPV PT with INR 19.60 H INR 1.76 H PTT (Actin FS) 43.3 H Sodium Potassium Chloride Carbon Dioxide Anion Gap BUN Creatinine Creat Clearance w eGFR Random Glucose Calcium Phosphorus Magnesium Total Bilirubin AST ALT Alkaline Phosphatase Troponin I Total Protein Albumin Blood Type Antibody Screen Crossmatch Active Medications Generic Name Dose Route Start Last Admin Trade Name Freq PRN Reason Stop Dose Admin Acetaminophen 325 mg 12/30/16 21:41 01/06/17 14:00 Tylenol - PO 325 mg Q6H PRN Administration PAIN Acetaminophen 325 mg 12/30/16 22:13 01/06/17 07:39 Tylenol - PO 325 mg Q6H PRN Administration PAIN Clonidine 0.3 mg 12/30/16 22:00 01/07/17 06:33 Catapres - PO 0.3 mg TID ROSA MARIA Administration Gabapentin 200 mg 01/03/17 15:00 01/07/17 06:33 Neurontin - PO 200 mg TID ROSA MARIA Administration Heparin Sodium (Porcine) 1,000 unit 01/06/17 23:56 01/07/17 07:03 Heparin - IVPUSH 1,000 unit PRN PRN Administration Heparin Heparin Sodium (Porcine) 5,000 unit 01/06/17 23:56 Heparin - IVPUSH PRN PRN Heparin Hydralazine HCl 50 mg 01/02/17 14:00 01/07/17 06:33 Apresoline - PO 50 mg TID ROSA MARIA Administration Hydralazine HCl 10 mg 01/06/17 11:39 01/06/17 12:03 Apresoline Injection - IVPUSH 10 mg Q6H PRN Administration HYPERTENSION Nicardipine HCl 25 mg/ 250 mls @ 25 mls/hr 01/06/17 23:30 01/06/17 23:25 Dextrose IVPB 10 mls/hr TITR ROSA MARIA Administration Protocol 2.5 MG/HR Heparin Sodium (Porcine) 25, 500 mls @ 20 mls/hr 01/06/17 23:45 01/07/17 07:03 000 unit/ Sodium Chloride IV 1,800 unit/hr TITR ROSA MARIA Titration Protocol 1,000 UNIT/HR Insulin Aspart 1 vial 12/30/16 22:00 01/07/17 06:41 Novolog Vial Sliding Scale - SQ 2 units ACHS ROSA MARIA Administration Protocol Insulin Detemir 15 units 12/30/16 22:00 01/07/17 06:33 Levemir Vial SQ 15 units BID@0700,2200 ROSA MARIA Administration Labetalol HCl 400 mg 12/30/16 22:00 01/07/17 06:33 Normodyne - PO 400 mg TID ROSA MARIA Administration Losartan Potassium 100 mg 12/31/16 10:00 01/06/17 09:48 Cozaar - PO 100 mg DAILY ROSA MARIA Administration Metoclopramide HCl 5 mg 12/31/16 07:00 01/07/17 06:45 Reglan - PO Not Given TIDAC ROSA MARIA Nifedipine 90 mg 12/31/16 10:00 01/06/17 09:46 Procardia Xl - PO 90 mg DAILY ROSA MARIA Administration Oxycodone HCl 10 mg 01/06/17 22:09 01/07/17 06:45 Roxicodone - PO 10 mg Q4H PRN Administration PAIN Sevelamer Carbonate 3,200 mg 01/01/17 12:45 01/06/17 17:01 Renvela - PO 3,200 mg TIDCM ROSA MARIA Administration Warfarin Sodium 5 mg/ Warfarin 7 mg 01/05/17 18:00 01/06/17 22:12 Sodium 2 mg PO 7 mg DAILY@1800 ROSA MARIA Administration No Micro Pending Imaging: CXR (01/06) - BL progressive vascular vs. infiltrative changes. L vascular stent noted. CT Head (01/06) - No mass lesions, midline shift, gross infarct or ICH. ASSESSMENT/PLAN: Pt is a 26 yo woman with PMH of ESRD (on HD), Hypertension, DM1, prior DVTs, who initially presented w/ right-sided chest pain, found to have a R subsegment PE. Since transferred to ICU for management of hypertensive emergency and severe GUTIERRES. Pt is much more improved clinically, w/ better BP control on PO home meds, currently off Cardene gtt overnight w/ subsequent resolution of GUTIERRES. Remains on heparin gtt for AC. Will likely require further workup regarding etiology of renal dz and referral for transplant placement. HD today, renal following. Given clinical improvement, transfer to telemetry for further monitoring. #Neuro -Monitor for HAs - Oxycodone 10mg q4h - Tylenol 325 PO Q6h for pain control - Neurontin 2mg TID #Cardiac Hypertensive Emergency - Attempt to titrate BP meds - Daily weights - Clonidine 0.3 TID - Hydralazine 50 mg PO TID - Cardene gtt dc'ed - cozaar 100mg daily - procardia xl 90mg daily -Labetalol 400 TID - Vitals q6h #Pulm -O2 2L NC PRN. Titrate to >94% #Renal ESRD. Receives HD MWF - Received HD for last 3 days. 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 7.1 -> 9.5 - Trend H/H. Transfuse at <7 - Continue home AC - Heparin gtt - AM INR 1.76. Repeat in PM #Endo -ACHS -ISS - Levemir SubQ BID #GI -Senna, Colace if constipated - Metaclopromide for GI motility. #FEN -Fluids: PO free water -Electrolytes: Daily BMPs, Trend BUN/Cr -Nutrition: Diabetic diet #PPX -Heparin gtt for DVT ppx -PPI for GI ppx #Dispo - Dispo to ICU for further monitoring/management Adrian Guerra, PGY1 Plan discussed with attending, Dr. Ballesteros Visit type - Emergency Visit Emergency Visit: No - New Patient This patient is new to me today: Yes Date on this admission: 01/07/17 - Critical Care Critical Care patient: Yes Total Critical Care Time (in minutes): 35 Critical Care Statement: The care of this patient involved high complexity decision making to prevent further life threatening deterioration of the patient 's condition and/or to evaluate & treat vital organ system(s) failure or risk of failure.
[2017-01-07] MEDS: SEVELAMER CARBONATE 800 MG TAB (FP) PO SCH ×3 (08:37→17:00)
--- NOTE | 2017-01-07 09:46 | PN ---
Progress Note, Physician Chief Complaint: feeling better today having dialysis-- fluid removal now Nicardipine drip dc at 3 AM Now on Heparin drip no headaches - Current Medication List Current Medications: Active Medications Acetaminophen (Tylenol -) 325 mg PO Q6H PRN PRN Reason: PAIN Last Admin: 01/06/17 14:00 Dose: 325 mg Acetaminophen (Tylenol -) 325 mg PO Q6H PRN PRN Reason: PAIN Last Admin: 01/06/17 07:39 Dose: 325 mg Clonidine (Catapres -) 0.3 mg PO TID [facility] Last Admin: 01/07/17 06:33 Dose: 0.3 mg Gabapentin (Neurontin -) 200 mg PO TID [facility] Last Admin: 01/07/17 06:33 Dose: 200 mg Heparin Sodium (Porcine) (Heparin -) 1,000 unit IVPUSH PRN PRN PRN Reason: Heparin Last Admin: 01/07/17 07:03 Dose: 1,000 unit Heparin Sodium (Porcine) (Heparin -) 5,000 unit IVPUSH PRN PRN PRN Reason: Heparin Hydralazine HCl (Apresoline -) 50 mg PO TID [facility] Last Admin: 01/07/17 06:33 Dose: 50 mg Hydralazine HCl (Apresoline Injection -) 10 mg IVPUSH Q6H PRN PRN Reason: HYPERTENSION Last Admin: 01/06/17 12:03 Dose: 10 mg Nicardipine HCl 25 mg/ (Dextrose) 250 mls @ 25 mls/hr IVPB TITR ROSA MARIA; 2.5 MG/HR PRN Reason: Protocol Last Admin: 01/06/17 23:25 Dose: 10 mls/hr Heparin Sodium (Porcine) 25, (000 unit/ Sodium Chloride) 500 mls @ 20 mls/hr IV TITR ROSA MARIA; 1,000 UNIT/HR PRN Reason: Protocol Last Titration: 01/07/17 07:03 Dose: 1,800 unit/hr Insulin Aspart (Novolog Vial Sliding Scale -) 1 vial SQ ACHS ROSA MARIA PRN Reason: Protocol Last Admin: 01/07/17 06:41 Dose: 2 units Insulin Detemir (Levemir Vial) 15 units SQ BID@0700,2200 [facility] Last Admin: 01/07/17 06:33 Dose: 15 units Labetalol HCl (Normodyne -) 400 mg PO TID [facility] Last Admin: 01/07/17 06:33 Dose: 400 mg Losartan Potassium (Cozaar -) 100 mg PO DAILY [facility] Last Admin: 01/06/17 09:48 Dose: 100 mg Metoclopramide HCl (Reglan -) 5 mg PO TIDAC [facility] Last Admin: 01/07/17 06:45 Dose: Not Given Nifedipine (Procardia Xl -) 90 mg PO DAILY [facility] Last Admin: 01/06/17 09:46 Dose: 90 mg Oxycodone HCl (Roxicodone -) 10 mg PO Q4H PRN PRN Reason: PAIN Last Admin: 01/07/17 06:45 Dose: 10 mg Sevelamer Carbonate (Renvela -) 3,200 mg PO TIDCM [facility] Last Admin: 01/07/17 08:37 Dose: 3,200 mg Warfarin Sodium 5 mg/ Warfarin (Sodium 2 mg) 7 mg PO DAILY@1800 [facility] Last Admin: 01/06/17 22:12 Dose: 7 mg - Objective Vital Signs: Vital Signs Temperature 98.4 F 01/07/17 09:10 Pulse Rate 98 H 01/07/17 09:10 Respiratory Rate 18 01/07/17 09:10 Blood Pressure 130/90 01/07/17 09:10 O2 Sat by Pulse Oximetry (%) 97 01/07/17 09:36 Constitutional: Yes: No Distress, Calm Cardiovascular: Yes: Regular Rate and Rhythm Respiratory: Yes: Diminished. No: Rales, Rhonchi Gastrointestinal: Yes: Normal Bowel Sounds, Soft. No: Distention, Tenderness Edema: Yes (decreased) Neurological: Yes: Alert, Oriented Labs: CBC, BMP 01/07/17 05:10 01/07/17 05:10 INR, PTT INR 1.76 (0.82-1.09) H 01/07/17 05:10 Problem List - Problems (1) Chest pain Code(s): R07.9 - CHEST PAIN, UNSPECIFIED Qualifiers: Chest pain type: pleurodynia Qualified Code(s): R07.81 - Pleurodynia; R07.81 - Pleurodynia (2) Pulmonary embolism Code(s): I26.99 - OTHER PULMONARY EMBOLISM WITHOUT ACUTE COR PULMONALE Qualifiers: Pulmonary embolism type: other Chronicity: acute Acute cor pulmonale presence: without acute cor pulmonale Qualified Code(s): I26.99 - Other pulmonary embolism without acute cor pulmonale; I26.99 - Other pulmonary embolism without acute cor pulmonale; I26.99 - Other pulmonary embolism without acute cor pulmonale; I26.99 - Other pulmonary embolism without acute cor pulmonale (3) ESRD (end stage renal disease) on dialysis Code(s): N18.6 - END STAGE RENAL DISEASE Z99.2 - DEPENDENCE ON RENAL DIALYSIS (4) HTN (hypertension) Code(s): I10 - ESSENTIAL (PRIMARY) HYPERTENSION Qualifiers: Hypertension type: renovascular hypertension Qualified Code(s): I15.0 - Renovascular hypertension; I15.0 - Renovascular hypertension; I15.0 - Renovascular hypertension (5) Anemia Code(s): D64.9 - ANEMIA, UNSPECIFIED Qualifiers: Folate deficiency anemia type: dietary (6) Hypertensive urgency Code(s): I16.0 - HYPERTENSIVE URGENCY Assessment/Plan On Heparin +Coumadin s/p 2 units of PRBC check stool guaic to see if she is bleeding per rectum she has h/o upper gI bleeding BP much better spoke with Renal-- she needs her AM dose of BP meds especially Clonidine prior to dialysis ok to transfer to regular floor OOB
[2017-01-07] MEDS: ACETAMINOPHEN 325 MG TABLET (FP) PO PRN ×3 (10:40→18:45)
[2017-01-07] MEDS ORDERED: PT OWN MED DRAWER 7, Y5N ONE (10:54)
--- NOTE | 2017-01-07 11:01 | PN ---
Progress Note (short form) - Note Progress Note: s: no cp sob palps dizzy; yesterday during hd was getting prbcs and had episode of elevated bp in 200s and lethargy. HD stopped and transferred to icu for nicard gtt. Currently bp controlled on gtt and pt feeling well. no cigs o: Vital Signs Temp 98.7 F 01/07/17 10:00 Pulse 76 01/07/17 10:00 Resp 18 01/07/17 10:15 BP 123/84 01/07/17 10:00 Pulse Ox 97 01/07/17 10:15 Intake & Output 01/06/17 01/06/17 01/07/17 11:59 23:59 11:59 Intake Total 238 300 738 Balance 238 300 738 Weight 170 lb 9.6 oz Intake: IV 238 338 Heparin - 25,000 Unit In 238 Normal Saline - 495 ml @ 800 UNIT/HR 16 mls/hr IV TITR ROSA MARIA Rx#:[id number] Cardene - 25 mg In D5w - 100 240 ml @ 2.5 MG/HR 25 mls /hr IVPB TITR ROSA MARIA Rx#: [id number] Heparin - 25,000 Unit In 238 Normal Saline - 495 ml @ 1,000 UNIT/HR 20 mls/hr IV TITR ROSA MARIA Rx#: [id number] Oral 300 400 Other: Voiding Method Toilet Toilet Toilet Bowel Movement Yes: large Weight Measurement Method Chair Scale nad no jvd rrr s1s2 no mrg ctabl nl eff aaox3 no le e/c/c abd nt nd pos bs no jaundice diaphoresis Current Medications Generic Name Dose Route Start Last Admin Trade Name Freq PRN Reason Stop Dose Admin Acetaminophen 325 mg 12/30/16 21:41 01/07/17 10:40 Tylenol - PO 325 mg Q6H PRN Administration PAIN Acetaminophen 325 mg 12/30/16 22:13 01/06/17 07:39 Tylenol - PO 325 mg Q6H PRN Administration PAIN Clonidine 0.3 mg 12/30/16 22:00 01/07/17 06:33 Catapres - PO 0.3 mg TID ROSA MARIA Administration Gabapentin 200 mg 01/03/17 15:00 01/07/17 06:33 Neurontin - PO 200 mg TID ROSA MARIA Administration Heparin Sodium (Porcine) 1,000 unit 01/06/17 23:56 01/07/17 07:03 Heparin - IVPUSH 1,000 unit PRN PRN Administration Heparin Heparin Sodium (Porcine) 5,000 unit 01/06/17 23:56 Heparin - IVPUSH PRN PRN Heparin Hydralazine HCl 50 mg 01/02/17 14:00 01/07/17 06:33 Apresoline - PO 50 mg TID ROSA MARIA Administration Hydralazine HCl 10 mg 01/06/17 11:39 01/06/17 12:03 Apresoline Injection - IVPUSH 10 mg Q6H PRN Administration HYPERTENSION Nicardipine HCl 25 mg/ 250 mls @ 25 mls/hr 01/06/17 23:30 01/06/17 23:25 Dextrose IVPB 10 mls/hr TITR ROSA MARIA Administration Protocol 2.5 MG/HR Heparin Sodium (Porcine) 25, 500 mls @ 20 mls/hr 01/06/17 23:45 01/07/17 07:03 000 unit/ Sodium Chloride IV 1,800 unit/hr TITR ROSA MARIA Titration Protocol 1,000 UNIT/HR Insulin Aspart 1 vial 12/30/16 22:00 01/07/17 06:41 Novolog Vial Sliding Scale - SQ 2 units ACHS ROSA MARIA Administration Protocol Insulin Detemir 15 units 12/30/16 22:00 01/07/17 06:33 Levemir Vial SQ 15 units BID@0700,2200 ROSA MARIA Administration Labetalol HCl 400 mg 12/30/16 22:00 01/07/17 06:33 Normodyne - PO 400 mg TID ROSA MARIA Administration Losartan Potassium 100 mg 12/31/16 10:00 01/06/17 09:48 Cozaar - PO 100 mg DAILY ROSA MARIA Administration Metoclopramide HCl 5 mg 12/31/16 07:00 01/07/17 06:45 Reglan - PO Not Given TIDAC ROSA MARIA Nifedipine 90 mg 12/31/16 10:00 01/06/17 09:46 Procardia Xl - PO 90 mg DAILY ROSA MARIA Administration Oxycodone HCl 10 mg 01/06/17 22:09 01/07/17 10:38 Roxicodone - PO 10 mg Q4H PRN Administration PAIN Sevelamer Carbonate 3,200 mg 01/01/17 12:45 01/07/17 08:37 Renvela - PO 3,200 mg TIDCM ROSA MARIA Administration Warfarin Sodium 5 mg/ Warfarin 7 mg 01/05/17 18:00 01/06/17 22:12 Sodium 2 mg PO 7 mg DAILY@1800 ROSA MARIA Administration Laboratory Last Values WBC 10.4 K/mm3 (4.0-10.0) H 01/07/17 05:10 RBC 3.36 M/mm3 (3.60-5.2) L D 01/07/17 05:10 Hgb 9.5 GM/dL (10.7-15.3) L D 01/07/17 05:10 Hct 29.1 % (32.4-45.2) L D 01/07/17 05:10 MCV 86.8 fl (80-96) 01/07/17 05:10 MCH 28.3 pg (25.7-33.7) 01/07/17 05:10 MCHC 32.6 g/dl (32.0-36.0) 01/07/17 05:10 RDW 17.5 % (11.6-15.6) H 01/07/17 05:10 Plt Count 381 K/MM3 (134-434) 01/07/17 05:10 MPV 9.7 fl (7.5-11.1) 01/07/17 05:10 Total Counted 100 12/30/16 20:00 Neutrophils % 63.9 % (42.8-82.8) 12/31/16 12:00 Neutrophils % (Manual) 70 % (42.8-82.8) 12/30/16 20:00 Band Neuts % (Manual) 11 % (0-10) H 12/30/16 20:00 Lymphocytes % 19.4 % (8-40) 12/31/16 12:00 Lymphocytes % (Manual) 8 % (8-40) 12/30/16 20:00 Monocytes % 12.5 % (3.8-10.2) H 12/31/16 12:00 Monocytes % (Manual) 10 % (3.8-10.2) 12/30/16 20:00 Eosinophils % 1.9 % (0-4.5) 12/31/16 12:00 Eosinophils % (Manual) 1 % (0-4.5) 12/30/16 20:00 Basophils % 2.3 % (0-2.0) H 12/31/16 12:00 Platelet Estimate Adequate (NORMAL) 12/30/16 20:00 Platelet Comment No clumping noted 12/30/16 20:00 Platelet Comment No clotting detected 12/30/16 20:00 PT with INR 19.60 SEC (9.98-11.88) H 01/07/17 05:10 INR 1.76 (0.82-1.09) H 01/07/17 05:10 PTT (Actin FS) 43.3 SECONDS (26.9-34.4) H 01/07/17 05:10 D-Dimer 936 ng/ml (<200-235) H 12/30/16 20:49 Sodium 135 mmol/L (136-145) L 01/07/17 05:10 Potassium 4.4 mmol/L (3.5-5.1) 01/07/17 05:10 Chloride 97 mmol/L (98-107) L 01/07/17 05:10 Carbon Dioxide 28 mmol/L (21-32) 01/07/17 05:10 Anion Gap 10 (8-16) 01/07/17 05:10 BUN 50 mg/dL (7-18) H 01/07/17 05:10 Creatinine 3.7 mg/dL (0.55-1.02) H 01/07/17 05:10 Creat Clearance w eGFR 14.69 (>60) 01/07/17 05:10 POC Glucometer 235 UNITS (()) 01/06/17 06:09 Random Glucose 170 mg/dL (74-106) H D 01/07/17 05:10 Calcium 8.6 mg/dL (8.5-10.1) 01/07/17 05:10 Phosphorus 4.8 mg/dL (2.5-4.9) 01/07/17 05:10 Magnesium 1.9 mg/dL (1.8-2.4) 01/07/17 05:10 Total Bilirubin 0.7 mg/dL (0.2-1.0) 01/07/17 05:10 Direct Bilirubin 0.2 mg/dL (0.0-0.2) 01/04/17 10:00 AST 28 U/L (15-37) D 01/07/17 05:10 ALT 31 U/L (12-78) D 01/07/17 05:10 Alkaline Phosphatase 1439 U/L (45-117) H 01/07/17 05:10 Creatine Kinase 86 IU/L (26-192) 12/31/16 12:00 Creatine Kinase Index 4.5 % (0.0-5.0) 12/30/16 20:00 CK-MB (CK-2) 6.878 ng/mL (0.5-3.6) H 12/30/16 20:00 Troponin I < 0.02 ng/ml (0.00-0.05) 01/06/17 18:50 B-Natriuretic Peptide 07497.60 pg/ml (5-125) H 12/30/16 20:00 Total Protein 7.6 g/dl (6.4-8.2) 01/07/17 05:10 Albumin 2.6 g/dl (3.4-5.0) L 01/07/17 05:10 Serum , Qual Negative 12/30/16 20:00 Blood Type B POSITIVE 01/04/17 14:00 Antibody Screen Negative 01/04/17 14:00 Crossmatch See Detail 01/04/17 14:00 cta chest: tiny rll pe, no chf ecg 12/30/16: sr, nl intervals, no ischemic changes tele: sr echo 12/2016: mod lvh, nl lv/rv, mod tr, mod phtn, mild pr, a/p: 26 f hx esrd on hd, htn, dm, pe/dvt here with cp. cp, PE: -sxs atypical for cardiac cp, resolved now -ecg, ce's unremarkable, no signs acs -possibly due to PE seen on cta here -cont ac for pe -no signs right heart strain on echo here esrd: -cont hd per renal htn: -acute elevation of bp yesterday during hd,prbcs. ?transfusion related. -now on nicardipine gtt with improvement in bp -cont current po meds and titrate off nicardipine gtt as bp allows
--- NOTE | 2017-01-07 11:22 | PN ---
Progress Note (short form) - Note Progress Note: Renal Follow up for ESRD/Volume overload Pt seen and examined in the ICU during ultrafiltration Nicardipine gtt started yesterday at ~6pm and stopped this AM BP much better, GUTIERRES now resolved getting UF via AVF, flow is good Goal UF is 3L Vital Signs Temperature 98.7 F 01/07/17 10:00 Pulse Rate 76 01/07/17 10:00 Respiratory Rate 18 01/07/17 10:15 Blood Pressure 123/84 01/07/17 10:00 O2 Sat by Pulse Oximetry (%) 97 01/07/17 10:15 Intake & Output 01/04/17 01/05/17 01/06/17 01/07/17 23:59 23:59 23:59 23:59 Intake Total 1700 1669 538 738 Balance 1700 1669 538 738 Weight 170 lb 9.6 oz NAD, awake and alert RRR, No M/R Dec BS at lung bases, no rales soft NT/ND 1+ edema in LE, no cyanosis CBC, BMP 01/07/17 05:10 01/07/17 05:10 Current Medications Acetaminophen (Tylenol -) 325 mg PO Q6H PRN PRN Reason: PAIN Last Admin: 01/07/17 10:40 Dose: 325 mg Acetaminophen (Tylenol -) 325 mg PO Q6H PRN PRN Reason: PAIN Last Admin: 01/06/17 07:39 Dose: 325 mg Clonidine (Catapres -) 0.3 mg PO TID [facility] Last Admin: 01/07/17 06:33 Dose: 0.3 mg Gabapentin (Neurontin -) 200 mg PO TID [facility] Last Admin: 01/07/17 06:33 Dose: 200 mg Heparin Sodium (Porcine) (Heparin -) 1,000 unit IVPUSH PRN PRN PRN Reason: Heparin Last Admin: 01/07/17 07:03 Dose: 1,000 unit Heparin Sodium (Porcine) (Heparin -) 5,000 unit IVPUSH PRN PRN PRN Reason: Heparin Hydralazine HCl (Apresoline -) 50 mg PO TID [facility] Last Admin: 01/07/17 06:33 Dose: 50 mg Hydralazine HCl (Apresoline Injection -) 10 mg IVPUSH Q6H PRN PRN Reason: HYPERTENSION Last Admin: 01/06/17 12:03 Dose: 10 mg Nicardipine HCl 25 mg/ (Dextrose) 250 mls @ 25 mls/hr IVPB TITR [facility]; 2.5 MG/HR PRN Reason: Protocol Last Admin: 01/06/17 23:25 Dose: 10 mls/hr Heparin Sodium (Porcine) 25, (000 unit/ Sodium Chloride) 500 mls @ 20 mls/hr IV TITR [facility]; 1,000 UNIT/HR PRN Reason: Protocol Last Titration: 01/07/17 07:03 Dose: 1,800 unit/hr Insulin Aspart (Novolog Vial Sliding Scale -) 1 vial SQ ACHS [facility] PRN Reason: Protocol Last Admin: 01/07/17 06:41 Dose: 2 units Insulin Detemir (Levemir Vial) 15 units SQ BID@0700,2200 [facility] Last Admin: 01/07/17 06:33 Dose: 15 units Labetalol HCl (Normodyne -) 400 mg PO TID [facility] Last Admin: 01/07/17 06:33 Dose: 400 mg Losartan Potassium (Cozaar -) 100 mg PO DAILY [facility] Last Admin: 01/06/17 09:48 Dose: 100 mg Metoclopramide HCl (Reglan -) 5 mg PO TIDAC [facility] Last Admin: 01/07/17 06:45 Dose: Not Given Nifedipine (Procardia Xl -) 90 mg PO DAILY [facility] Last Admin: 01/06/17 09:46 Dose: 90 mg Oxycodone HCl (Roxicodone -) 10 mg PO Q4H PRN PRN Reason: PAIN Last Admin: 01/07/17 10:38 Dose: 10 mg Sevelamer Carbonate (Renvela -) 3,200 mg PO TIDCM [facility] Last Admin: 01/07/17 08:37 Dose: 3,200 mg Warfarin Sodium 5 mg/ Warfarin (Sodium 2 mg) 7 mg PO DAILY@1800 [facility] Last Admin: 01/06/17 22:12 Dose: 7 mg 26 year old woman with PMhx of ESRD on Hd (MWF), Hypertension, DM Type 1, Hx of DVT who presents with right sided pleuretic chest pain and found to have a suspected/small PE on CTA and volume expansion. Pt started to develop the pleuretic chest pain yesterday with dialysis. #Hypertensive Urgency Improved today and is currently off nicardipine gtt isolated UF today with goal of 3L removed continue all PO meds Pt should not skip Clonidine dose Goal BP < 140/90 #Right sided PE w/o evidence of DVT a/c as per primary team f/u INR #Worsening Anemia s/p 2 prbc transfusion Stool occult blood pending on heparin gtt #ESRD on HD with Fluid overload tolerating UF Hd tomorrow with further UF as tolerated #Insulin dependent DM continue insulin as per primary #Hypertension continue Labetalol, Clondine, Losartan, Nifedpine #Renal Osteodystrophy renvela to 3200mg TID with meals Thank you will follow Nathan Vo DO Problem List - Problems (1) Chest pain Code(s): R07.9 - CHEST PAIN, UNSPECIFIED Qualifiers: Chest pain type: pleurodynia Qualified Code(s): R07.81 - Pleurodynia; R07.81 - Pleurodynia (2) Pulmonary embolism Code(s): I26.99 - OTHER PULMONARY EMBOLISM WITHOUT ACUTE COR PULMONALE Qualifiers: Pulmonary embolism type: other Chronicity: acute Acute cor pulmonale presence: without acute cor pulmonale Qualified Code(s): I26.99 - Other pulmonary embolism without acute cor pulmonale; I26.99 - Other pulmonary embolism without acute cor pulmonale; I26.99 - Other pulmonary embolism without acute cor pulmonale; I26.99 - Other pulmonary embolism without acute cor pulmonale (3) ESRD (end stage renal disease) on dialysis Code(s): N18.6 - END STAGE RENAL DISEASE Z99.2 - DEPENDENCE ON RENAL DIALYSIS (4) HTN (hypertension) Code(s): I10 - ESSENTIAL (PRIMARY) HYPERTENSION Qualifiers: Hypertension type: renovascular hypertension Qualified Code(s): I15.0 - Renovascular hypertension; I15.0 - Renovascular hypertension; I15.0 - Renovascular hypertension (5) Anemia Code(s): D64.9 - ANEMIA, UNSPECIFIED Qualifiers: Folate deficiency anemia type: dietary (6) Diabetes mellitus, insulin dependent (IDDM), uncontrolled Code(s): E10.65 - TYPE 1 DIABETES MELLITUS WITH HYPERGLYCEMIA Qualifiers: Diabetes mellitus complication status: with unspecified complications Qualified Code(s): E10.8 - Type 1 diabetes mellitus with unspecified complications; E10.8 - Type 1 diabetes mellitus with unspecified complications; E10.8 - Type 1 diabetes mellitus with unspecified complications; E10.8 - Type 1 diabetes mellitus with unspecified complications; E10.65 - Type 1 diabetes mellitus with hyperglycemia; E10.65 - Type 1 diabetes mellitus with hyperglycemia; E10.65 - Type 1 diabetes mellitus with hyperglycemia; E10.65 - Type 1 diabetes mellitus with hyperglycemia
[2017-01-07] MEDS: LOSARTAN POTASSIUM 50 MG TABLET (FP) PO SCH (12:15)
[2017-01-07] MEDS: NIFEdipine E.R. 90 MG TABLET (FP) PO SCH (12:16)
--- NOTE | 2017-01-07 12:20 | PN ---
Teaching Attending Note Name of Resident: Adrian Guerra ATTENDING PHYSICIAN STATEMENT I saw and evaluated the patient. I reviewed the resident's note and discussed the case with the resident. I agree with the resident's findings and plan as documented. SUBJECTIVE: Patient seen and examined in the ICU. Currently on HD. Headache is better. BP is improved. No CP or SOB. OBJECTIVE: Intake & Output 01/04/17 01/05/17 01/06/17 01/07/17 23:59 23:59 23:59 23:59 Intake Total 1700 1669 538 738 Balance 1700 1669 538 738 Weight 170 lb 9.6 oz Last Vital Signs Temp Pulse Resp BP Pulse Ox 98.7 F 76 18 123/84 97 01/07/17 10:00 01/07/17 10:00 01/07/17 10:15 01/07/17 10:00 01/07/17 10:15 Active Medications Acetaminophen (Tylenol -) 325 mg PO Q6H PRN PRN Reason: PAIN Last Admin: 01/07/17 10:40 Dose: 325 mg Acetaminophen (Tylenol -) 325 mg PO Q6H PRN PRN Reason: PAIN Last Admin: 01/06/17 07:39 Dose: 325 mg Clonidine (Catapres -) 0.3 mg PO TID [facility] Last Admin: 01/07/17 06:33 Dose: 0.3 mg Epoetin Abiel (Epogen -) 20,000 units IVPUSH ONCE ONE Stop: 01/08/17 06:01 Gabapentin (Neurontin -) 200 mg PO TID [facility] Last Admin: 01/07/17 06:33 Dose: 200 mg Heparin Sodium (Porcine) (Heparin -) 1,000 unit IVPUSH PRN PRN PRN Reason: Heparin Last Admin: 01/07/17 07:03 Dose: 1,000 unit Heparin Sodium (Porcine) (Heparin -) 5,000 unit IVPUSH PRN PRN PRN Reason: Heparin Hydralazine HCl (Apresoline -) 50 mg PO TID [facility] Last Admin: 01/07/17 06:33 Dose: 50 mg Hydralazine HCl (Apresoline Injection -) 10 mg IVPUSH Q6H PRN PRN Reason: HYPERTENSION Last Admin: 01/06/17 12:03 Dose: 10 mg Nicardipine HCl 25 mg/ (Dextrose) 250 mls @ 25 mls/hr IVPB TITR [facility]; 2.5 MG/HR PRN Reason: Protocol Last Admin: 01/06/17 23:25 Dose: 10 mls/hr Heparin Sodium (Porcine) 25, (000 unit/ Sodium Chloride) 500 mls @ 20 mls/hr IV TITR [facility]; 1,000 UNIT/HR PRN Reason: Protocol Last Titration: 01/07/17 07:03 Dose: 1,800 unit/hr Insulin Aspart (Novolog Vial Sliding Scale -) 1 vial SQ ACHS [facility] PRN Reason: Protocol Last Admin: 01/07/17 06:41 Dose: 2 units Insulin Detemir (Levemir Vial) 15 units SQ BID@0700,2200 [facility] Last Admin: 01/07/17 06:33 Dose: 15 units Labetalol HCl (Normodyne -) 400 mg PO TID [facility] Last Admin: 01/07/17 06:33 Dose: 400 mg Losartan Potassium (Cozaar -) 100 mg PO DAILY [facility] Last Admin: 01/07/17 12:15 Dose: 100 mg Metoclopramide HCl (Reglan -) 5 mg PO TIDAC [facility] Last Admin: 01/07/17 06:45 Dose: Not Given Nifedipine (Procardia Xl -) 90 mg PO DAILY [facility] Last Admin: 01/07/17 12:16 Dose: 90 mg Oxycodone HCl (Roxicodone -) 10 mg PO Q4H PRN PRN Reason: PAIN Last Admin: 01/07/17 10:38 Dose: 10 mg Sevelamer Carbonate (Renvela -) 3,200 mg PO TIDCM [facility] Last Admin: 01/07/17 12:14 Dose: 3,200 mg Warfarin Sodium 5 mg/ Warfarin (Sodium 2 mg) 7 mg PO DAILY@1800 [facility] Last Admin: 01/06/17 22:12 Dose: 7 mg Gen: Awake and alert Heart: RRR Lung: decreased breath sounds at the bases Abd: soft, nontender Ext: + edema Laboratory Results - last 24 hr 01/06/17 01/07/17 01/07/17 18:50 05:10 05:10 WBC 10.4 H RBC 3.36 L D Hgb 9.5 L D Hct 29.1 L D MCV 86.8 MCH 28.3 MCHC 32.6 RDW 17.5 H Plt Count 381 MPV 9.7 PT with INR INR PTT (Actin FS) Sodium 135 L Potassium 4.4 Chloride 97 L Carbon Dioxide 28 Anion Gap 10 BUN 50 H Creatinine 3.7 H Creat Clearance w eGFR 14.69 Random Glucose 170 H D Calcium 8.6 Phosphorus 4.8 Magnesium 1.9 Total Bilirubin 0.7 AST 28 D ALT 31 D Alkaline Phosphatase 1439 H Troponin I < 0.02 Total Protein 7.6 Albumin 2.6 L 01/07/17 05:10 WBC RBC Hgb Hct MCV MCH MCHC RDW Plt Count MPV PT with INR 19.60 H INR 1.76 H PTT (Actin FS) 43.3 H Sodium Potassium Chloride Carbon Dioxide Anion Gap BUN Creatinine Creat Clearance w eGFR Random Glucose Calcium Phosphorus Magnesium Total Bilirubin AST ALT Alkaline Phosphatase Troponin I Total Protein Albumin ASSESSMENT AND PLAN: Hypertensive Urgency Suspected Hypertensive Encephalopathy - now resolved (?) Acute RLL Pulmonary Embolism ESRD on HD Pulmonary HTN HTN DM - Titrate BP meds - continue anticoagulation - HD per renal with ultrafiltration - monitor H/H, lytes - Cardiac Telemetry monitoring Dr Ballesterso Critical care time spent in reviewing chart, evaluating patient and formulating plan - 35 minutes.
[2017-01-07] MEDS: HEPARIN - 25,000 UNIT in SODIUM CHLORIDE 495 ML IV SCH (12:27)
[2017-01-07 13:14] LABS: INR 1.86 (0.82-1.09); PROTHROMBIN TIME (PATIENT) 20.7 SEC (9.98-11.88)
--- NOTE | 2017-01-07 14:17 | EKG ---
Test Reason : Blood Pressure : / mmHG Vent. Rate : 100 BPM Atrial Rate : 100 BPM P-R Int : 184 ms QRS Dur : 080 ms QT Int : 358 ms P-R-T Axes : 022 018 038 degrees QTc Int : 461 ms NORMAL SINUS RHYTHM NORMAL ECG WHEN COMPARED WITH ECG OF 30-DEC-2016 19:36, NO SIGNIFICANT CHANGE WAS FOUND Confirmed by WESLEY SABILLON MD ([id number]) on 01/07/2017 2:16:44 PM Referred By: ODETTE SCHWARTZ DR Confirmed By:WESLEY SABILLON MD
[2017-01-07] MEDS ORDERED: WARFARIN NA 2 MG TABLET (UD) ONE (15:41)
[2017-01-07] MEDS ORDERED: WARFARIN NA 5 MG TABLET (UD) ONE (15:41)
[2017-01-07] MEDS: WARFARIN NA 5 MG, WARFARIN NA 2 MG PO SCH (17:04)
[2017-01-07] MEDS ORDERED: HEPARIN - 25,000 UNIT in SODIUM CHLORIDE 495 ML IV SCH (19:19)
[2017-01-07] MEDS ORDERED: HEPARIN NA (PORCINE) 5,000 UNITS/ML 1ML VIAL IVPUSH PRN ×4 (19:19)
[2017-01-07] MEDS ORDERED: hydrALAZINE HCL 20 MG/ML VIAL IVPUSH PRN (19:19)
[2017-01-08] MEDS ORDERED: LABETALOL HCL 100 MG TABLET (FP) ONE (05:05)
[2017-01-08] MEDS: hydrALAZINE HCL 50 MG TABLET (FP) PO SCH ×3 (05:08→21:27)
[2017-01-08] MEDS: GABAPENTIN 100 MG CAPSULE (FP) PO SCH ×3 (05:08→21:27)
[2017-01-08] MEDS: cloNIDine HCL 0.1 MG TABLET PO SCH ×3 (05:08→21:27)
[2017-01-08] MEDS: oxyCODONE HCL 5 MG TABLET PO PRN ×3 (05:09→19:51)
[2017-01-08] MEDS: ACETAMINOPHEN 325 MG TABLET (FP) PO PRN ×3 (05:09→19:52)
[2017-01-08] MEDS: LABETALOL HCL 200 MG TABLET (FP) PO SCH ×3 (05:10→21:27)
[2017-01-08 05:56] LABS: MCH 28.2 pg (25.7-33.7); MCHC 32.1 g/dl (32.0-36.0); MEAN PLT VOLUME 9.6 fl (7.5-11.1); PLATELET COUNT 391 K/MM3 (134-434); RDW 17.7 % (11.6-15.6); WHITE BLOOD COUNT 9.5 K/mm3 (4.0-10.0)
[2017-01-08] MEDS ORDERED: EPOETIN ALFA 2,000 UNITS/1 ML VIAL IVPUSH ONE (06:00)
[2017-01-08 06:07] LABS: INR 2.63 (0.82-1.09); PROTHROMBIN TIME (PATIENT) 29.5 SEC (9.98-11.88)
[2017-01-08] MEDS: INSULIN SLIDING SCALE (NOVOLOG) 1 VIAL SQ SCH ×4 (06:18→21:28)
[2017-01-08] MEDS: INSULIN DETEMIR 100 UNITS/ML MDV SQ SCH ×2 (06:18→21:28)
[2017-01-08] MEDS: METOCLOPRAMIDE HCL 10 MG TABLET (FP) PO SCH ×3 (06:20→17:26)
--- NOTE | 2017-01-08 07:26 | PN ---
Physical Exam: SUBJECTIVE: Patient seen and examined by me this AM - Doing well. No complaints. No further GUTIERRES, CP or tightness, dizziness, palpitations, fevers/chills, N/V - Received HD today. HTN to 170s systolic overnight. - INR therapeutic this AM. Heparin d/c'ed this AM - H/H stable at 9.3 (down from 9.5) - Will go to med-surg today OBJECTIVE: Vital Signs Intake & Output 01/05/17 01/06/17 01/07/17 01/08/17 23:59 23:59 23:59 23:59 Intake Total 1948 259 3375 532 Balance 2175 766 4810 532 Weight 77.383 kg 77.746 kg Period Temp Pulse Resp BP Sys/Ames Pulse Ox Last 24 Hr 98.2 F-98.7 F 74-98 15-20 118-176/70-108 97-97 GENERAL: The patient is awake, alert, and fully oriented, in no acute distress. Resting comfortable. HEAD: Normal with no signs of trauma. EYES: PERRL, extraocular movements intact, sclera anicteric, conjunctiva clear. No ptosis. ENT: Ears normal, nares patent, oropharynx clear without exudates, moist mucous membranes. NECK: Trachea midline, full range of motion, supple. LUNGS: Breath sounds equal, clear to auscultation bilaterally, no wheezes, no crackles, no accessory muscle use. HEART: Regular rate and rhythm, prominent S1, S2 without murmur, rub or gallop. ABDOMEN: Soft, nontender, nondistended, normoactive bowel sounds, no guarding, no rebound, no hepatosplenomegaly, no masses. EXTREMITIES: 2+ pulses, warm, well-perfused. 2+ BL non-pitting LE edema. Multiple healed ulcers/scars on anterior benitez on L leg and thigh. NEUROLOGICAL: Cranial nerves II through XII intact. 5/5 strength in all 4 extremity. Normal sensation to light touch in all extremities. Normal speech, gait not observed. PSYCH: Normal mood, normal affect. Laboratory Results - last 24 hr CBC, BMP 01/08/17 05:00 01/07/17 05:10 01/07/17 01/07/17 01/08/17 11:45 11:45 05:00 WBC 9.5 RBC 3.30 L Hgb 9.3 L Hct 29.0 L MCV 88.0 MCH 28.2 MCHC 32.1 RDW 17.7 H Plt Count 391 MPV 9.6 PT with INR 20.70 H INR 1.86 H PTT (Actin FS) 61.0 H D Magnesium 01/08/17 01/08/17 01/08/17 05:00 05:00 05:00 WBC RBC Hgb Hct MCV MCH MCHC RDW Plt Count MPV PT with INR 29.50 H INR 2.63 H D PTT (Actin FS) 52.9 H Magnesium 2.0 Active Medications Generic Name Dose Route Start Last Admin Trade Name Freq PRN Reason Stop Dose Admin Acetaminophen 325 mg 01/07/17 19:19 01/08/17 05:09 Tylenol - PO 325 mg Q6H PRN Administration PAIN Clonidine 0.3 mg 01/07/17 22:00 01/08/17 05:08 Catapres - PO 0.3 mg TID [facility] Administration Epoetin Abiel 20,000 units 01/08/17 06:00 Epogen - IVPUSH 01/08/17 06:01 ONCE ONE Gabapentin 200 mg 01/07/17 22:00 01/08/17 05:08 Neurontin - PO 200 mg TID [facility] Administration Heparin Sodium (Porcine) 1,000 unit 01/07/17 19:19 Heparin - IVPUSH PRN PRN Heparin Heparin Sodium (Porcine) 5,000 unit 01/07/17 19:19 Heparin - IVPUSH PRN PRN Heparin Hydralazine HCl 50 mg 01/07/17 22:00 01/08/17 05:08 Apresoline - PO 50 mg TID [facility] Administration Hydralazine HCl 10 mg 01/07/17 19:19 Apresoline Injection - IVPUSH Q6H PRN HYPERTENSION Heparin Sodium (Porcine) 25, 500 mls @ 20 mls/hr 01/07/17 19:19 01/07/17 20:32 000 unit/ Sodium Chloride IV Not Given TITR [facility] Protocol 1,000 UNIT/HR Insulin Aspart 1 vial 01/07/17 22:00 01/08/17 06:18 Novolog Vial Sliding Scale - SQ 6 units ACHS [facility] Administration Protocol Insulin Detemir 15 units 01/07/17 22:00 01/08/17 06:18 Levemir Vial SQ 15 units BID@0700,2200 [facility] Administration Labetalol HCl 400 mg 01/07/17 22:00 01/08/17 05:10 Normodyne - PO 400 mg TID [facility] Administration Losartan Potassium 100 mg 01/08/17 10:00 Cozaar - PO DAILY [facility] Metoclopramide HCl 5 mg 01/08/17 07:00 01/08/17 06:20 Reglan - PO Not Given TIDAC [facility] Oxycodone HCl 10 mg 01/07/17 19:19 01/08/17 05:09 Roxicodone - PO 10 mg Q4H PRN Administration PAIN Sevelamer Carbonate 3,200 mg 01/08/17 08:00 Renvela - PO TIDCM [facility] Warfarin Sodium 5 mg/ Warfarin 7 mg 01/08/17 18:00 Sodium 2 mg PO DAILY@1800 [facility] No Micro Pending Imaging: CXR (01/06) - BL progressive vascular vs. infiltrative changes. L vascular stent noted. CT Head (01/06) - No mass lesions, midline shift, gross infarct or ICH. ASSESSMENT/PLAN: Pt is a 26 yo woman with PMH of ESRD (on HD), Hypertension, DM1, prior DVTs, who initially presented w/ right-sided chest pain, found to have a R subsegment PE. Since transferred to ICU for management of hypertensive emergency and severe GUTIERRES. Pt is much more improved clinically, w/ better BP control on PO home meds, currently off Cardene gtt overnight w/ subsequent resolution of GUTIERRES. Remains on heparin gtt for AC. Will likely require further workup regarding etiology of renal dz and referral for transplant placement. HD today, renal following. Given clinical improvement, transfer to telemetry for further monitoring. #Neuro -Monitor for HAs - Oxycodone 10mg q4h - Tylenol 325 PO Q6h for pain control - Neurontin 2mg TID #Cardiac Hypertensive Emergency - Attempt to titrate BP meds - Daily weights - Clonidine 0.3 TID - Hydralazine 50 mg PO TID - cozaar 100mg daily - procardia xl 90mg daily - Labetalol 400 TID - Vitals q2h #Pulm -O2 2L NC PRN. Titrate to >94% #Renal ESRD. Receives HD MWF - Received HD for last 4 days. HD again today - Renvela 3.2g for renal osteodystropy - Further work-up, investigation of etiology of renal dz - Strict Is&Os - Daily BMPs, monitor lytes -Will require transplant placement #Heme - HgB stable. 9.5 -> 9.3 - Trend H/H. Transfuse at <7 - Continue home AC - Heparin gtt d/c'ed today. - INR 2.63 this AM #Endo - ACHS - ISS - Levemir SubQ BID #GI -Senna, Colace if constipated -Metaclopromide for GI motility. #FEN -Fluids: PO free water -Electrolytes: Daily BMPs, Trend BUN/Cr -Nutrition: Diabetic diet #PPX -Heparin gtt for DVT ppx -PPI for GI ppx #Dispo - Dispo to med-surg given better BP control Adrian Guerra, PGY1 Plan discussed with attending, Dr. Ballesteros Visit type - Emergency Visit Emergency Visit: No - New Patient This patient is new to me today: No - Critical Care Critical Care patient: Yes Total Critical Care Time (in minutes): 35 Critical Care Statement: The care of this patient involved high complexity decision making to prevent further life threatening deterioration of the patient 's condition and/or to evaluate & treat vital organ system(s) failure or risk of failure.
[2017-01-08] MEDS: HEPARIN - 25,000 UNIT in SODIUM CHLORIDE 495 ML IV SCH (08:00)
[2017-01-08] MEDS ORDERED: SEVELAMER CARBONATE 800 MG TAB (FP) PO SCH ×2 (08:00)
[2017-01-08 08:47] LABS: ANION GAP 13 (8-16); CALCIUM 8.4 mg/dL (8.5-10.1); CO2 23 mmol/L (21-32); CREATININE 4.8 mg/dL (0.55-1.02); GLUCOSE,RANDOM 263 mg/dL (74-106); PHOSPHOROUS 5.4 mg/dL (2.5-4.9)
--- NOTE | 2017-01-08 08:59 | PN ---
Progress Note, Physician Chief Complaint: feels well dialysis today BP controlled - Current Medication List Current Medications: Active Medications Acetaminophen (Tylenol -) 325 mg PO Q6H PRN PRN Reason: PAIN Last Admin: 01/08/17 05:09 Dose: 325 mg Clonidine (Catapres -) 0.3 mg PO TID [facility] Last Admin: 01/08/17 05:08 Dose: 0.3 mg Epoetin Abiel (Procrit -) 20,000 unit IVPUSH ONCE ONE Stop: 01/08/17 09:01 Gabapentin (Neurontin -) 200 mg PO TID [facility] Last Admin: 01/08/17 05:08 Dose: 200 mg Hydralazine HCl (Apresoline -) 50 mg PO TID [facility] Last Admin: 01/08/17 05:08 Dose: 50 mg Hydralazine HCl (Apresoline Injection -) 10 mg IVPUSH Q6H PRN PRN Reason: HYPERTENSION Insulin Aspart (Novolog Vial Sliding Scale -) 1 vial SQ ACHS [facility] PRN Reason: Protocol Last Admin: 01/08/17 06:18 Dose: 6 units Insulin Detemir (Levemir Vial) 15 units SQ BID@0700,2200 [facility] Last Admin: 01/08/17 06:18 Dose: 15 units Labetalol HCl (Normodyne -) 400 mg PO TID [facility] Last Admin: 01/08/17 05:10 Dose: 400 mg Losartan Potassium (Cozaar -) 100 mg PO DAILY [facility] Metoclopramide HCl (Reglan -) 5 mg PO TIDAC [facility] Last Admin: 01/08/17 06:20 Dose: Not Given Oxycodone HCl (Roxicodone -) 10 mg PO Q4H PRN PRN Reason: PAIN Last Admin: 01/08/17 05:09 Dose: 10 mg Sevelamer Carbonate (Renvela -) 3,200 mg PO TIDCM [facility] Warfarin Sodium 5 mg/ Warfarin (Sodium 2 mg) 7 mg PO DAILY@1800 [facility] - Objective Vital Signs: Vital Signs Temperature 98.4 F 01/08/17 07:25 Pulse Rate 88 01/08/17 08:00 Respiratory Rate 18 01/08/17 08:00 Blood Pressure 154/92 01/08/17 08:00 O2 Sat by Pulse Oximetry (%) 97 01/07/17 20:00 Constitutional: Yes: No Distress Cardiovascular: Yes: Regular Rate and Rhythm Respiratory: Yes: Diminished Gastrointestinal: Yes: Normal Bowel Sounds, Soft. No: Distention, Tenderness Edema: Yes Edema: LLE: 3+, RLE: 3+ Psychiatric: Yes: Alert, Oriented Labs: CBC, BMP 01/08/17 05:00 INR, PTT INR 2.63 (0.82-1.09) H D 01/08/17 05:00 Problem List - Problems (1) Chest pain Code(s): R07.9 - CHEST PAIN, UNSPECIFIED Qualifiers: Chest pain type: pleurodynia Qualified Code(s): R07.81 - Pleurodynia; R07.81 - Pleurodynia (2) Pulmonary embolism Code(s): I26.99 - OTHER PULMONARY EMBOLISM WITHOUT ACUTE COR PULMONALE Qualifiers: Pulmonary embolism type: other Chronicity: acute Acute cor pulmonale presence: without acute cor pulmonale Qualified Code(s): I26.99 - Other pulmonary embolism without acute cor pulmonale; I26.99 - Other pulmonary embolism without acute cor pulmonale; I26.99 - Other pulmonary embolism without acute cor pulmonale; I26.99 - Other pulmonary embolism without acute cor pulmonale (3) ESRD (end stage renal disease) on dialysis Code(s): N18.6 - END STAGE RENAL DISEASE Z99.2 - DEPENDENCE ON RENAL DIALYSIS (4) HTN (hypertension) Code(s): I10 - ESSENTIAL (PRIMARY) HYPERTENSION Qualifiers: Hypertension type: renovascular hypertension Qualified Code(s): I15.0 - Renovascular hypertension; I15.0 - Renovascular hypertension; I15.0 - Renovascular hypertension (5) Anemia Code(s): D64.9 - ANEMIA, UNSPECIFIED Qualifiers: Folate deficiency anemia type: dietary (6) Hypertensive urgency Code(s): I16.0 - HYPERTENSIVE URGENCY Assessment/Plan dc heparin -- INR therapeutic now s/p 2 units of PRBC check stool guaic to see if she is bleeding per rectum BP much better spoke with Renal-- she needs her AM dose of BP meds especially Clonidine prior to dialysis ok to transfer to regular floor OOB off Nicardipine drip PT eval
[2017-01-08] MEDS ORDERED: EPOETIN ALFA 20,000 UNIT/1 ML VIAL IVPUSH ONE (09:00)
[2017-01-08 09:33] LABS: TROPONIN I < 0.02 ng/ml (0.00-0.05)
[2017-01-08] MEDS: SEVELAMER CARBONATE 800 MG TAB (FP) PO SCH ×3 (11:08→17:38)
--- NOTE | 2017-01-08 12:04 | PN ---
Teaching Attending Note Name of Resident: Adrian Guerra ATTENDING PHYSICIAN STATEMENT I saw and evaluated the patient. I reviewed the resident's note and discussed the case with the resident. I agree with the resident's findings and plan as documented. SUBJECTIVE: Patient seen and examined in the ICU. Currently on HD. Headache is resolved. BP is improved. No CP or SOB. OBJECTIVE: Intake & Output 01/05/17 01/06/17 01/07/17 01/08/17 23:59 23:59 23:59 23:59 Intake Total 3966 944 3060 532 Balance 4374 925 0024 532 Weight 170 lb 9.6 oz 171 lb 6.4 oz Last Vital Signs Temp Pulse Resp BP Pulse Ox 98.4 F 80 18 141/87 97 01/08/17 07:25 01/08/17 10:30 01/08/17 10:30 01/08/17 10:30 01/07/17 20:00 Active Medications Acetaminophen (Tylenol -) 325 mg PO Q6H PRN PRN Reason: PAIN Last Admin: 01/08/17 05:09 Dose: 325 mg Clonidine (Catapres -) 0.3 mg PO TID [facility] Last Admin: 01/08/17 05:08 Dose: 0.3 mg Gabapentin (Neurontin -) 200 mg PO TID [facility] Last Admin: 01/08/17 05:08 Dose: 200 mg Hydralazine HCl (Apresoline -) 50 mg PO TID [facility] Last Admin: 01/08/17 05:08 Dose: 50 mg Hydralazine HCl (Apresoline Injection -) 10 mg IVPUSH Q6H PRN PRN Reason: HYPERTENSION Insulin Aspart (Novolog Vial Sliding Scale -) 1 vial SQ ACHS [facility] PRN Reason: Protocol Last Admin: 01/08/17 11:10 Dose: Not Given Insulin Detemir (Levemir Vial) 15 units SQ BID@0700,2200 [facility] Last Admin: 01/08/17 06:18 Dose: 15 units Labetalol HCl (Normodyne -) 400 mg PO TID [facility] Last Admin: 01/08/17 05:10 Dose: 400 mg Losartan Potassium (Cozaar -) 100 mg PO DAILY [facility] Metoclopramide HCl (Reglan -) 5 mg PO TIDAC [facility] Last Admin: 01/08/17 11:11 Dose: Not Given Oxycodone HCl (Roxicodone -) 10 mg PO Q4H PRN PRN Reason: PAIN Last Admin: 01/08/17 05:09 Dose: 10 mg Sevelamer Carbonate (Renvela -) 3,200 mg PO TIDCM [facility] Last Admin: 01/08/17 11:08 Dose: 3,200 mg Warfarin Sodium (Coumadin -) 5 mg PO DAILY@1800 [facility] Gen: Awake and alert Heart: RRR Lung: decreased breath sounds at the bases Abd: soft, nontender Ext: + edema Laboratory Results - last 24 hr 01/07/17 01/07/17 01/08/17 11:45 11:45 05:00 WBC 9.5 RBC 3.30 L Hgb 9.3 L Hct 29.0 L MCV 88.0 MCH 28.2 MCHC 32.1 RDW 17.7 H Plt Count 391 MPV 9.6 PT with INR 20.70 H INR 1.86 H PTT (Actin FS) 61.0 H D Sodium Potassium Chloride Carbon Dioxide Anion Gap BUN Creatinine Random Glucose Calcium Phosphorus Magnesium Troponin I 01/08/17 01/08/17 01/08/17 05:00 05:00 05:00 WBC RBC Hgb Hct MCV MCH MCHC RDW Plt Count MPV PT with INR 29.50 H INR 2.63 H D PTT (Actin FS) 52.9 H Sodium 132 L Potassium 4.7 Chloride 96 L Carbon Dioxide 23 Anion Gap 13 BUN 77 H D Creatinine 4.8 H D Random Glucose 263 H D Calcium 8.4 L Phosphorus 5.4 H Magnesium 2.0 Troponin I < 0.02 01/08/17 05:00 WBC RBC Hgb Hct MCV MCH MCHC RDW Plt Count MPV PT with INR INR PTT (Actin FS) Sodium Cancelled Potassium Cancelled Chloride Cancelled Carbon Dioxide Cancelled Anion Gap Cancelled BUN Cancelled Creatinine Cancelled Random Glucose Cancelled Calcium Cancelled Phosphorus Cancelled Magnesium Troponin I ASSESSMENT AND PLAN: Hypertensive Urgency Suspected Hypertensive Encephalopathy - now resolved (?) Acute RLL Pulmonary Embolism ESRD on HD Pulmonary HTN HTN DM - Titrate BP meds - Coumadin -> D/C IV Heparin - HD per renal with ultrafiltration - monitor H/H, lytes - Floor - O2 to maintain saturation Dr Ballesteros Critical care time spent in reviewing chart, evaluating patient and formulating plan - 35 minutes.
[2017-01-08] MEDS: LOSARTAN POTASSIUM 50 MG TABLET (FP) PO SCH (13:00)
--- NOTE | 2017-01-08 14:20 | PN ---
Progress Note (short form) - Note Progress Note: CC: s: Off nicardipine drip. + h/a no cp, palps, dizzines. non smoker Current Medications Acetaminophen (Tylenol -) 325 mg PO Q6H PRN PRN Reason: PAIN Last Admin: 01/08/17 12:32 Dose: 325 mg Clonidine (Catapres -) 0.3 mg PO TID [facility] Last Admin: 01/08/17 05:08 Dose: 0.3 mg Gabapentin (Neurontin -) 200 mg PO TID [facility] Last Admin: 01/08/17 05:08 Dose: 200 mg Hydralazine HCl (Apresoline -) 50 mg PO TID [facility] Last Admin: 01/08/17 05:08 Dose: 50 mg Hydralazine HCl (Apresoline Injection -) 10 mg IVPUSH Q6H PRN PRN Reason: HYPERTENSION Insulin Aspart (Novolog Vial Sliding Scale -) 1 vial SQ ACHS [facility] PRN Reason: Protocol Last Admin: 01/08/17 11:10 Dose: Not Given Insulin Detemir (Levemir Vial) 15 units SQ BID@0700,2200 [facility] Last Admin: 01/08/17 06:18 Dose: 15 units Labetalol HCl (Normodyne -) 400 mg PO TID [facility] Last Admin: 01/08/17 05:10 Dose: 400 mg Losartan Potassium (Cozaar -) 100 mg PO DAILY [facility] Metoclopramide HCl (Reglan -) 5 mg PO TIDAC [facility] Last Admin: 01/08/17 11:11 Dose: Not Given Oxycodone HCl (Roxicodone -) 10 mg PO Q4H PRN PRN Reason: PAIN Last Admin: 01/08/17 12:31 Dose: 10 mg Sevelamer Carbonate (Renvela -) 3,200 mg PO TIDCM [facility] Last Admin: 01/08/17 11:08 Dose: 3,200 mg Warfarin Sodium (Coumadin -) 5 mg PO DAILY@1800 [facility] Vital Signs - 24 hr 01/07/17 01/07/17 01/07/17 16:00 17:21 20:00 Temperature Pulse Rate 86 82 Respiratory 16 18 Rate Blood Pressure 127/78 141/93 O2 Sat by Pulse 97 97 Oximetry (%) 01/07/17 01/07/17 01/08/17 22:00 23:59 02:00 Temperature 98.4 F 98.6 F Pulse Rate 80 82 88 Respiratory 18 20 20 Rate Blood Pressure 134/93 130/70 150/70 O2 Sat by Pulse Oximetry (%) 01/08/17 01/08/17 01/08/17 03:59 06:00 07:25 Temperature 98.2 F 98.4 F Pulse Rate 88 86 80 Respiratory 20 20 18 Rate Blood Pressure 175/98 162/96 140/92 O2 Sat by Pulse Oximetry (%) 01/08/17 01/08/17 01/08/17 07:30 08:00 08:30 Temperature Pulse Rate 89 88 89 Respiratory 18 18 18 Rate Blood Pressure 149/95 154/92 149/90 O2 Sat by Pulse Oximetry (%) 01/08/17 01/08/17 01/08/17 09:00 09:30 10:00 Temperature Pulse Rate 80 59 L 89 Respiratory 18 18 18 Rate Blood Pressure 140/50 149/89 139/71 O2 Sat by Pulse Oximetry (%) 01/08/17 01/08/17 01/08/17 10:30 11:00 11:30 Temperature Pulse Rate 80 86 89 Respiratory 18 18 18 Rate Blood Pressure 141/87 129/76 131/72 O2 Sat by Pulse Oximetry (%) 01/08/17 12:00 Temperature Pulse Rate 89 Respiratory 18 Rate Blood Pressure 128/74 O2 Sat by Pulse Oximetry (%) Intake & Output 01/06/17 01/07/17 01/08/17 01/09/17 07:59 07:59 07:59 07:59 Intake Total 1382 1038 2564 Balance 1382 1038 2564 Weight 170 lb 9.6 oz 171 lb 6.4 oz nad no jvd rrr s1s2 no mrg ctabl nl eff aaox3 1+ LE edema trace at sacrum abd nt nd pos bs no jaundice diaphoresis CBC, BMP 01/08/17 05:00 01/08/17 05:00 Laboratory Tests 01/06/17 01/08/17 01/08/17 18:50 05:00 05:00 INR 2.63 H D Magnesium 2.0 Troponin I < 0.02 < 0.02 cta chest: tiny rll pe, no chf ecg 12/30/16: sr, nl intervals, no ischemic changes tele: sr echo 12/2016: mod lvh, nl lv/rv, mod tr, mod phtn, mild pr, a/p: 26 f hx esrd on hd, htn, dm, pe/dvt, prior atrial myxoma s/p surgery here with cp. cp, PE: -sxs atypical for cardiac cp, resolved now -ecg, ce's unremarkable, no signs acs -possibly due to PE seen on cta here -cont ac for pe -no signs right heart strain on echo here, no atrial findings that would indicate recurrence of myxoma. esrd: -cont hd per renal htn: -acute elevation of bp during hd,prbcs. ?transfusion related. that required ICU mgm't and nicardipine drip. - improvement in bp. cont current po meds
--- NOTE | 2017-01-08 14:37 | PN ---
Progress Note (short form) - Note Progress Note: Renal Follow up for ESRD/Volume overload Pt seen and examined in the ICU awake and alert no acute complaints s/p Hd this am with 3.5kg UF pt with some lightheadedness toward the end of the treatment Vital Signs Temperature 98.4 F 01/08/17 07:25 Pulse Rate 89 01/08/17 12:00 Respiratory Rate 18 01/08/17 12:00 Blood Pressure 128/74 01/08/17 12:00 O2 Sat by Pulse Oximetry (%) 97 01/07/17 20:00 Intake & Output 01/05/17 01/06/17 01/07/17 01/08/17 23:59 23:59 23:59 23:59 Intake Total 3806 704 6876 532 Balance 7846 810 6919 532 Weight 170 lb 9.6 oz 171 lb 6.4 oz NAD, awake and alert RRR, No M/R Dec BS at lung bases, no rales soft NT/ND 1+ edema in LE, no cyanosis CBC, BMP 01/08/17 05:00 01/08/17 05:00 Current Medications Acetaminophen (Tylenol -) 325 mg PO Q6H PRN PRN Reason: PAIN Last Admin: 01/08/17 12:32 Dose: 325 mg Clonidine (Catapres -) 0.3 mg PO TID [facility] Last Admin: 01/08/17 05:08 Dose: 0.3 mg Gabapentin (Neurontin -) 200 mg PO TID [facility] Last Admin: 01/08/17 05:08 Dose: 200 mg Hydralazine HCl (Apresoline -) 50 mg PO TID [facility] Last Admin: 01/08/17 05:08 Dose: 50 mg Hydralazine HCl (Apresoline Injection -) 10 mg IVPUSH Q6H PRN PRN Reason: HYPERTENSION Insulin Aspart (Novolog Vial Sliding Scale -) 1 vial SQ ACHS [facility] PRN Reason: Protocol Last Admin: 01/08/17 11:10 Dose: Not Given Insulin Detemir (Levemir Vial) 15 units SQ BID@0700,2200 [facility] Last Admin: 01/08/17 06:18 Dose: 15 units Labetalol HCl (Normodyne -) 400 mg PO TID [facility] Last Admin: 01/08/17 05:10 Dose: 400 mg Losartan Potassium (Cozaar -) 100 mg PO DAILY [facility] Metoclopramide HCl (Reglan -) 5 mg PO TIDAC [facility] Last Admin: 01/08/17 11:11 Dose: Not Given Oxycodone HCl (Roxicodone -) 10 mg PO Q4H PRN PRN Reason: PAIN Last Admin: 01/08/17 12:31 Dose: 10 mg Sevelamer Carbonate (Renvela -) 3,200 mg PO TIDCM [facility] Last Admin: 01/08/17 11:08 Dose: 3,200 mg Warfarin Sodium (Coumadin -) 5 mg PO DAILY@1800 [facility] 26 year old woman with PMhx of ESRD on Hd (MWF), Hypertension, DM Type 1, Hx of DVT who presents with right sided pleuretic chest pain and found to have a suspected/small PE on CTA and volume expansion. Pt started to develop the pleuretic chest pain yesterday with dialysis. #Hypertensive Urgency BP improved off cardene gtt continue oral meds #Right sided PE w/o evidence of DVT a/c as per primary team INR theraputic today #Worsening Anemia Hgb improved today continue krystal with Hd trend cbc #ESRD on HD with Fluid overload s/p hd this w/o complication #Insulin dependent DM continue insulin as per primary #Hypertension continue Labetalol, Clondine, Losartan, Nifedpine #Renal Osteodystrophy renvela to 3200mg TID with meals Thank you will follow Nathan Vo DO Problem List - Problems (1) Chest pain Code(s): R07.9 - CHEST PAIN, UNSPECIFIED Qualifiers: Chest pain type: pleurodynia Qualified Code(s): R07.81 - Pleurodynia; R07.81 - Pleurodynia (2) Pulmonary embolism Code(s): I26.99 - OTHER PULMONARY EMBOLISM WITHOUT ACUTE COR PULMONALE Qualifiers: Pulmonary embolism type: other Chronicity: acute Acute cor pulmonale presence: without acute cor pulmonale Qualified Code(s): I26.99 - Other pulmonary embolism without acute cor pulmonale; I26.99 - Other pulmonary embolism without acute cor pulmonale; I26.99 - Other pulmonary embolism without acute cor pulmonale; I26.99 - Other pulmonary embolism without acute cor pulmonale (3) ESRD (end stage renal disease) on dialysis Code(s): N18.6 - END STAGE RENAL DISEASE Z99.2 - DEPENDENCE ON RENAL DIALYSIS (4) HTN (hypertension) Code(s): I10 - ESSENTIAL (PRIMARY) HYPERTENSION Qualifiers: Hypertension type: renovascular hypertension Qualified Code(s): I15.0 - Renovascular hypertension; I15.0 - Renovascular hypertension; I15.0 - Renovascular hypertension (5) Anemia Code(s): D64.9 - ANEMIA, UNSPECIFIED Qualifiers: Folate deficiency anemia type: dietary (6) Diabetes mellitus, insulin dependent (IDDM), uncontrolled Code(s): E10.65 - TYPE 1 DIABETES MELLITUS WITH HYPERGLYCEMIA Qualifiers: Diabetes mellitus complication status: with unspecified complications Qualified Code(s): E10.8 - Type 1 diabetes mellitus with unspecified complications; E10.8 - Type 1 diabetes mellitus with unspecified complications; E10.8 - Type 1 diabetes mellitus with unspecified complications; E10.8 - Type 1 diabetes mellitus with unspecified complications; E10.65 - Type 1 diabetes mellitus with hyperglycemia; E10.65 - Type 1 diabetes mellitus with hyperglycemia; E10.65 - Type 1 diabetes mellitus with hyperglycemia; E10.65 - Type 1 diabetes mellitus with hyperglycemia
--- NOTE | 2017-01-08 15:05 | PN ---
Problem List - Problems (1) Chest pain Code(s): R07.9 - CHEST PAIN, UNSPECIFIED Qualifiers: Chest pain type: pleurodynia Qualified Code(s): R07.81 - Pleurodynia; R07.81 - Pleurodynia (2) Pulmonary embolism Code(s): I26.99 - OTHER PULMONARY EMBOLISM WITHOUT ACUTE COR PULMONALE Qualifiers: Pulmonary embolism type: other Chronicity: acute Acute cor pulmonale presence: without acute cor pulmonale Qualified Code(s): I26.99 - Other pulmonary embolism without acute cor pulmonale; I26.99 - Other pulmonary embolism without acute cor pulmonale; I26.99 - Other pulmonary embolism without acute cor pulmonale; I26.99 - Other pulmonary embolism without acute cor pulmonale (3) ESRD (end stage renal disease) on dialysis Code(s): N18.6 - END STAGE RENAL DISEASE Z99.2 - DEPENDENCE ON RENAL DIALYSIS (4) HTN (hypertension) Code(s): I10 - ESSENTIAL (PRIMARY) HYPERTENSION Qualifiers: Hypertension type: renovascular hypertension Qualified Code(s): I15.0 - Renovascular hypertension; I15.0 - Renovascular hypertension; I15.0 - Renovascular hypertension (5) Anemia Code(s): D64.9 - ANEMIA, UNSPECIFIED Qualifiers: Folate deficiency anemia type: dietary (6) Hypertensive urgency Code(s): I16.0 - HYPERTENSIVE URGENCY (7) Acute on chronic diastolic CHF (congestive heart failure) Code(s): I50.33 - ACUTE ON CHRONIC DIASTOLIC (CONGESTIVE) HEART FAILURE
[2017-01-08] MEDS: WARFARIN NA 5 MG TABLET (UD) PO SCH (17:42)
[2017-01-08] MEDS ORDERED: WARFARIN NA 5 MG, WARFARIN NA 2 MG PO SCH (18:00)
[2017-01-08] MEDS ORDERED: HEMOQUE TEST 1 EACH EACH ONE (20:55)
[2017-01-09] MEDS: cloNIDine HCL 0.1 MG TABLET PO SCH ×3 (06:33→21:28)
[2017-01-09] MEDS: LABETALOL HCL 200 MG TABLET (FP) PO SCH ×3 (06:34→21:28)
[2017-01-09] MEDS: hydrALAZINE HCL 50 MG TABLET (FP) PO SCH ×3 (06:34→21:28)
[2017-01-09] MEDS: METOCLOPRAMIDE HCL 10 MG TABLET (FP) PO SCH ×3 (06:34→17:39)
[2017-01-09] MEDS: INSULIN DETEMIR 100 UNITS/ML MDV SQ SCH ×2 (06:35→21:29)
[2017-01-09] MEDS: GABAPENTIN 100 MG CAPSULE (FP) PO SCH ×3 (06:35→21:29)
[2017-01-09] MEDS: INSULIN SLIDING SCALE (NOVOLOG) 1 VIAL SQ SCH ×4 (06:36→21:44)
[2017-01-09] MEDS: oxyCODONE HCL 5 MG TABLET PO PRN ×3 (06:44→21:36)
[2017-01-09] MEDS: ACETAMINOPHEN 325 MG TABLET (FP) PO PRN ×2 (06:44→15:03)
[2017-01-09 06:59] LABS: ALBUMIN 2.7 g/dl (3.4-5.0); ANION GAP 14 (8-16); CALCIUM 8.8 mg/dL (8.5-10.1); CO2 28 mmol/L (21-32); GLUCOSE,RANDOM 202 mg/dL (74-106); MAGNESIUM 1.9 mg/dL (1.8-2.4); PHOSPHOROUS 4.4 mg/dL (2.5-4.9); SGOT/AST 87 U/L (15-37)
[2017-01-09 07:06] LABS: MCH 27.8 pg (25.7-33.7); MCHC 31.7 g/dl (32.0-36.0); MEAN CELL VOLUME 87.7 fl (80-96); MEAN PLT VOLUME 9.3 fl (7.5-11.1); PLATELET COUNT 397 K/MM3 (134-434); RDW 17.3 % (11.6-15.6); WHITE BLOOD COUNT 9.7 K/mm3 (4.0-10.0)
[2017-01-09 07:12] LABS: BILIRUBIN,TOTAL 0.8 mg/dL (0.2-1.0); CREATININE 3.9 mg/dL (0.55-1.02); SGPT/ALT 45 U/L (12-78); TOT PROT 7.9 g/dl (6.4-8.2)
[2017-01-09 07:16] LABS: ALK PHOS 1618 U/L (45-117)
[2017-01-09] MEDS: SEVELAMER CARBONATE 800 MG TAB (FP) PO SCH ×3 (08:02→17:39)
[2017-01-09] MEDS: LOSARTAN POTASSIUM 50 MG TABLET (FP) PO SCH (09:30)
--- NOTE | 2017-01-09 09:40 | PN ---
Progress Note, Physician History of Present Illness: pulmonary alert,feeling better,-cp,-sob. bp 142/78 - Current Medication List Current Medications: Active Medications Acetaminophen (Tylenol -) 325 mg PO Q6H PRN PRN Reason: PAIN Last Admin: 01/09/17 06:44 Dose: 325 mg Clonidine (Catapres -) 0.3 mg PO TID [facility] Last Admin: 01/09/17 06:33 Dose: 0.3 mg Gabapentin (Neurontin -) 200 mg PO TID [facility] Last Admin: 01/09/17 06:35 Dose: 200 mg Hydralazine HCl (Apresoline -) 50 mg PO TID [facility] Last Admin: 01/09/17 06:34 Dose: 50 mg Hydralazine HCl (Apresoline Injection -) 10 mg IVPUSH Q6H PRN PRN Reason: HYPERTENSION Insulin Aspart (Novolog Vial Sliding Scale -) 1 vial SQ ACHS [facility] PRN Reason: Protocol Last Admin: 01/09/17 06:36 Dose: 4 units Insulin Detemir (Levemir Vial) 15 units SQ BID@0700,2200 [facility] Last Admin: 01/09/17 06:35 Dose: 15 units Labetalol HCl (Normodyne -) 400 mg PO TID [facility] Last Admin: 01/09/17 06:34 Dose: 400 mg Losartan Potassium (Cozaar -) 100 mg PO DAILY [facility] Last Admin: 01/09/17 09:30 Dose: 100 mg Metoclopramide HCl (Reglan -) 5 mg PO TIDAC [facility] Last Admin: 01/09/17 06:34 Dose: 5 mg Oxycodone HCl (Roxicodone -) 10 mg PO Q4H PRN PRN Reason: PAIN Last Admin: 01/09/17 06:44 Dose: 10 mg Sevelamer Carbonate (Renvela -) 3,200 mg PO TIDCM [facility] Last Admin: 01/09/17 08:02 Dose: 3,200 mg Warfarin Sodium (Coumadin -) 5 mg PO DAILY@1800 [facility] Last Admin: 01/08/17 17:42 Dose: 5 mg - Objective Vital Signs: Vital Signs Temperature 98.2 F 01/09/17 08:25 Pulse Rate 88 01/09/17 08:25 Respiratory Rate 18 01/09/17 08:29 Blood Pressure 177/104 01/09/17 08:25 O2 Sat by Pulse Oximetry (%) 98 01/09/17 08:29 Constitutional: Yes: Well Nourished, Calm Eyes: Yes: WNL HENT: Yes: WNL Neck: Yes: WNL Cardiovascular: Yes: Regular Rate and Rhythm, S1, S2 Respiratory: Yes: CTA Bilaterally Gastrointestinal: Yes: Normal Bowel Sounds, Soft Extremities: Yes: WNL Edema: Yes Labs: CBC, BMP 01/09/17 05:10 01/09/17 05:10 INR, PTT INR 2.63 (0.82-1.09) H D 01/08/17 05:00 Problem List - Problems (1) Chest pain Code(s): R07.9 - CHEST PAIN, UNSPECIFIED Qualifiers: Chest pain type: pleurodynia Qualified Code(s): R07.81 - Pleurodynia; R07.81 - Pleurodynia (2) Pulmonary embolism Code(s): I26.99 - OTHER PULMONARY EMBOLISM WITHOUT ACUTE COR PULMONALE Qualifiers: Pulmonary embolism type: other Chronicity: acute Acute cor pulmonale presence: without acute cor pulmonale Qualified Code(s): I26.99 - Other pulmonary embolism without acute cor pulmonale; I26.99 - Other pulmonary embolism without acute cor pulmonale; I26.99 - Other pulmonary embolism without acute cor pulmonale; I26.99 - Other pulmonary embolism without acute cor pulmonale (3) ESRD (end stage renal disease) on dialysis Code(s): N18.6 - END STAGE RENAL DISEASE Z99.2 - DEPENDENCE ON RENAL DIALYSIS (4) HTN (hypertension) Code(s): I10 - ESSENTIAL (PRIMARY) HYPERTENSION Qualifiers: Hypertension type: renovascular hypertension Qualified Code(s): I15.0 - Renovascular hypertension; I15.0 - Renovascular hypertension; I15.0 - Renovascular hypertension (5) Anemia Code(s): D64.9 - ANEMIA, UNSPECIFIED Qualifiers: Folate deficiency anemia type: dietary (6) End stage chronic kidney disease Code(s): N18.6 - END STAGE RENAL DISEASE Z99.2 - DEPENDENCE ON RENAL DIALYSIS (7) History of pulmonary embolus (PE) Code(s): Z86.711 - PERSONAL HISTORY OF PULMONARY EMBOLISM (8) Pulmonary HTN Code(s): I27.20 - PULMONARY HYPERTENSION, UNSPECIFIED Assessment/Plan IMP PULMONARY EMBOLISM CP/SOB ESRD ON HD HTN IDDM H/O R ATRIAL MYXOMA H/O DVT/PE PULMONARY HTN S/P HYPERTENSIVE URGENCY PLAN AC SUPPLEMENTAL O2 HD PER RENAL W/U FOR HYPERCOAGULABLE STATE OUTPATIENT DR BECERRA Problem List - Problems (1) Chest pain Code(s): R07.9 - CHEST PAIN, UNSPECIFIED Qualifiers: Chest pain type: pleurodynia Qualified Code(s): R07.81 - Pleurodynia; R07.81 - Pleurodynia (2) Pulmonary embolism Code(s): I26.99 - OTHER PULMONARY EMBOLISM WITHOUT ACUTE COR PULMONALE Qualifiers: Pulmonary embolism type: other Chronicity: acute Acute cor pulmonale presence: without acute cor pulmonale Qualified Code(s): I26.99 - Other pulmonary embolism without acute cor pulmonale; I26.99 - Other pulmonary embolism without acute cor pulmonale; I26.99 - Other pulmonary embolism without acute cor pulmonale; I26.99 - Other pulmonary embolism without acute cor pulmonale (3) ESRD (end stage renal disease) on dialysis Code(s): N18.6 - END STAGE RENAL DISEASE Z99.2 - DEPENDENCE ON RENAL DIALYSIS (4) HTN (hypertension) Code(s): I10 - ESSENTIAL (PRIMARY) HYPERTENSION Qualifiers: Hypertension type: renovascular hypertension Qualified Code(s): I15.0 - Renovascular hypertension; I15.0 - Renovascular hypertension; I15.0 - Renovascular hypertension (5) Anemia Code(s): D64.9 - ANEMIA, UNSPECIFIED Qualifiers: Folate deficiency anemia type: dietary (6) End stage chronic kidney disease Code(s): N18.6 - END STAGE RENAL DISEASE Z99.2 - DEPENDENCE ON RENAL DIALYSIS (7) History of pulmonary embolus (PE) Code(s): Z86.711 - PERSONAL HISTORY OF PULMONARY EMBOLISM (8) Pulmonary HTN Code(s): I27.20 - PULMONARY HYPERTENSION, UNSPECIFIED
--- NOTE | 2017-01-09 11:15 | PN ---
Progress Note (short form) - Note Progress Note: Renal Follow up for ESRD/Volume overload Pt seen and examined at the bedside no acute complaints no sob, chest pain, abd pain BP high overnight got am meds no GUTIERRES, CP, blurry vision Vital Signs Temperature 98.2 F 01/09/17 08:25 Pulse Rate 88 01/09/17 09:45 Respiratory Rate 18 01/09/17 08:29 Blood Pressure 142/78 01/09/17 09:45 O2 Sat by Pulse Oximetry (%) 98 01/09/17 08:29 Intake & Output 01/06/17 01/07/17 01/08/17 01/09/17 23:59 23:59 23:59 23:59 Intake Total 538 2770 1832 10 Balance 538 2770 1832 10 Weight 170 lb 9.6 oz 171 lb 6.4 oz NAD, awake and alert RRR, No M/R Dec BS at lung bases, no rales soft NT/ND 1+ edema in LE, no cyanosis CBC, BMP 01/09/17 05:10 01/09/17 05:10 Laboratory Tests 01/09/17 05:10 Calcium 8.8 Phosphorus 4.4 Magnesium 1.9 Albumin 2.7 L Current Medications Acetaminophen (Tylenol -) 325 mg PO Q6H PRN PRN Reason: PAIN Last Admin: 01/09/17 06:44 Dose: 325 mg Clonidine (Catapres -) 0.3 mg PO TID [facility] Last Admin: 01/09/17 06:33 Dose: 0.3 mg Gabapentin (Neurontin -) 200 mg PO TID [facility] Last Admin: 01/09/17 06:35 Dose: 200 mg Hydralazine HCl (Apresoline -) 50 mg PO TID [facility] Last Admin: 01/09/17 06:34 Dose: 50 mg Hydralazine HCl (Apresoline Injection -) 10 mg IVPUSH Q6H PRN PRN Reason: HYPERTENSION Insulin Aspart (Novolog Vial Sliding Scale -) 1 vial SQ ACHS [facility] PRN Reason: Protocol Last Admin: 01/09/17 06:36 Dose: 4 units Insulin Detemir (Levemir Vial) 15 units SQ BID@0700,2200 [facility] Last Admin: 01/09/17 06:35 Dose: 15 units Labetalol HCl (Normodyne -) 400 mg PO TID [facility] Last Admin: 01/09/17 06:34 Dose: 400 mg Losartan Potassium (Cozaar -) 100 mg PO DAILY [facility] Last Admin: 01/09/17 09:30 Dose: 100 mg Metoclopramide HCl (Reglan -) 5 mg PO TIDAC [facility] Last Admin: 01/09/17 06:34 Dose: 5 mg Oxycodone HCl (Roxicodone -) 10 mg PO Q4H PRN PRN Reason: PAIN Last Admin: 01/09/17 06:44 Dose: 10 mg Sevelamer Carbonate (Renvela -) 3,200 mg PO TIDCM [facility] Last Admin: 01/09/17 08:02 Dose: 3,200 mg Warfarin Sodium (Coumadin -) 5 mg PO DAILY@1800 [facility] Last Admin: 01/08/17 17:42 Dose: 5 mg 26 year old woman with PMhx of ESRD on Hd (MWF), Hypertension, DM Type 1, Hx of DVT who presents with right sided pleuretic chest pain and found to have a suspected/small PE on CTA and volume expansion. Pt started to develop the pleuretic chest pain yesterday with dialysis. #Hypertensive Urgency Continue oral meds, if BP remains high will need to titrate further will UF today so hopefully will improve BP as well #Right sided PE w/o evidence of DVT a/c as per primary team INR theraputic #Worsening Anemia Hgb improved s/p transfusion MACIE with HD #ESRD on HD with Fluid overload for isolated uF today #Insulin dependent DM continue insulin as per primary #Renal Osteodystrophy renvela to 3200mg TID with meals Thank you will follow Nathan Vo DO Problem List - Problems (1) Chest pain Code(s): R07.9 - CHEST PAIN, UNSPECIFIED Qualifiers: Chest pain type: pleurodynia Qualified Code(s): R07.81 - Pleurodynia; R07.81 - Pleurodynia (2) Pulmonary embolism Code(s): I26.99 - OTHER PULMONARY EMBOLISM WITHOUT ACUTE COR PULMONALE Qualifiers: Pulmonary embolism type: other Chronicity: acute Acute cor pulmonale presence: without acute cor pulmonale Qualified Code(s): I26.99 - Other pulmonary embolism without acute cor pulmonale; I26.99 - Other pulmonary embolism without acute cor pulmonale; I26.99 - Other pulmonary embolism without acute cor pulmonale; I26.99 - Other pulmonary embolism without acute cor pulmonale (3) ESRD (end stage renal disease) on dialysis Code(s): N18.6 - END STAGE RENAL DISEASE Z99.2 - DEPENDENCE ON RENAL DIALYSIS (4) HTN (hypertension) Code(s): I10 - ESSENTIAL (PRIMARY) HYPERTENSION Qualifiers: Hypertension type: renovascular hypertension Qualified Code(s): I15.0 - Renovascular hypertension; I15.0 - Renovascular hypertension; I15.0 - Renovascular hypertension (5) Anemia Code(s): D64.9 - ANEMIA, UNSPECIFIED Qualifiers: Folate deficiency anemia type: dietary (6) Diabetes mellitus, insulin dependent (IDDM), uncontrolled Code(s): E10.65 - TYPE 1 DIABETES MELLITUS WITH HYPERGLYCEMIA Qualifiers: Diabetes mellitus complication status: with unspecified complications Qualified Code(s): E10.8 - Type 1 diabetes mellitus with unspecified complications; E10.8 - Type 1 diabetes mellitus with unspecified complications; E10.8 - Type 1 diabetes mellitus with unspecified complications; E10.8 - Type 1 diabetes mellitus with unspecified complications; E10.65 - Type 1 diabetes mellitus with hyperglycemia; E10.65 - Type 1 diabetes mellitus with hyperglycemia; E10.65 - Type 1 diabetes mellitus with hyperglycemia; E10.65 - Type 1 diabetes mellitus with hyperglycemia
--- NOTE | 2017-01-09 11:53 | PN ---
Progress Note, Physician Chief Complaint: dialysis today no complaints feels well tries to get OOB and walk with walker - Current Medication List Current Medications: Active Medications Acetaminophen (Tylenol -) 325 mg PO Q6H PRN PRN Reason: PAIN Last Admin: 01/09/17 06:44 Dose: 325 mg Clonidine (Catapres -) 0.3 mg PO TID [facility] Last Admin: 01/09/17 06:33 Dose: 0.3 mg Gabapentin (Neurontin -) 200 mg PO TID [facility] Last Admin: 01/09/17 06:35 Dose: 200 mg Hydralazine HCl (Apresoline -) 50 mg PO TID [facility] Last Admin: 01/09/17 06:34 Dose: 50 mg Hydralazine HCl (Apresoline Injection -) 10 mg IVPUSH Q6H PRN PRN Reason: HYPERTENSION Insulin Aspart (Novolog Vial Sliding Scale -) 1 vial SQ ACHS [facility] PRN Reason: Protocol Last Admin: 01/09/17 11:32 Dose: Not Given Insulin Detemir (Levemir Vial) 15 units SQ BID@0700,2200 [facility] Last Admin: 01/09/17 06:35 Dose: 15 units Labetalol HCl (Normodyne -) 400 mg PO TID [facility] Last Admin: 01/09/17 06:34 Dose: 400 mg Losartan Potassium (Cozaar -) 100 mg PO DAILY [facility] Last Admin: 01/09/17 09:30 Dose: 100 mg Metoclopramide HCl (Reglan -) 5 mg PO TIDAC [facility] Last Admin: 01/09/17 11:32 Dose: 5 mg Oxycodone HCl (Roxicodone -) 10 mg PO Q4H PRN PRN Reason: PAIN Last Admin: 01/09/17 06:44 Dose: 10 mg Sevelamer Carbonate (Renvela -) 3,200 mg PO TIDCM [facility] Last Admin: 01/09/17 11:32 Dose: 3,200 mg Warfarin Sodium (Coumadin -) 5 mg PO DAILY@1800 [facility] Last Admin: 01/08/17 17:42 Dose: 5 mg - Objective Vital Signs: Vital Signs Temperature 98.2 F 01/09/17 08:25 Pulse Rate 88 01/09/17 09:45 Respiratory Rate 18 01/09/17 08:29 Blood Pressure 142/78 01/09/17 09:45 O2 Sat by Pulse Oximetry (%) 98 01/09/17 08:29 Constitutional: Yes: No Distress Cardiovascular: Yes: Regular Rate and Rhythm Respiratory: Yes: Diminished Gastrointestinal: Yes: Normal Bowel Sounds, Soft, Abdomen, Obese. No: Tenderness Edema: Yes Edema: LLE: 2+, RLE: 2+ Labs: CBC, BMP 01/09/17 05:10 01/09/17 05:10 INR, PTT INR 2.63 (0.82-1.09) H D 01/08/17 05:00 Problem List - Problems (1) Chest pain Code(s): R07.9 - CHEST PAIN, UNSPECIFIED Qualifiers: Chest pain type: pleurodynia Qualified Code(s): R07.81 - Pleurodynia; R07.81 - Pleurodynia (2) Pulmonary embolism Code(s): I26.99 - OTHER PULMONARY EMBOLISM WITHOUT ACUTE COR PULMONALE Qualifiers: Pulmonary embolism type: other Chronicity: acute Acute cor pulmonale presence: without acute cor pulmonale Qualified Code(s): I26.99 - Other pulmonary embolism without acute cor pulmonale; I26.99 - Other pulmonary embolism without acute cor pulmonale; I26.99 - Other pulmonary embolism without acute cor pulmonale; I26.99 - Other pulmonary embolism without acute cor pulmonale (3) ESRD (end stage renal disease) on dialysis Code(s): N18.6 - END STAGE RENAL DISEASE Z99.2 - DEPENDENCE ON RENAL DIALYSIS (4) HTN (hypertension) Code(s): I10 - ESSENTIAL (PRIMARY) HYPERTENSION Qualifiers: Hypertension type: renovascular hypertension Qualified Code(s): I15.0 - Renovascular hypertension; I15.0 - Renovascular hypertension; I15.0 - Renovascular hypertension (5) Anemia Code(s): D64.9 - ANEMIA, UNSPECIFIED Qualifiers: Folate deficiency anemia type: dietary (6) Hypertensive urgency Code(s): I16.0 - HYPERTENSIVE URGENCY (7) Acute on chronic diastolic CHF (congestive heart failure) Code(s): I50.33 - ACUTE ON CHRONIC DIASTOLIC (CONGESTIVE) HEART FAILURE Assessment/Plan Coumadin per INR BP much better she needs her AM dose of BP meds especially Clonidine prior to dialysis monitor BP OOB off Nicardipine drip PT eval
--- NOTE | 2017-01-09 14:42 | PN ---
Progress Note (short form) - Note Progress Note: CC: cp s: transferred out of ICU to floor. mild sob today, but bp more elevated. no cp, palps, dizziness. non smoker Current Medications Acetaminophen (Tylenol -) 325 mg PO Q6H PRN PRN Reason: PAIN Last Admin: 01/09/17 06:44 Dose: 325 mg Clonidine (Catapres -) 0.3 mg PO TID [facility] Last Admin: 01/09/17 13:55 Dose: 0.3 mg Gabapentin (Neurontin -) 200 mg PO TID [facility] Last Admin: 01/09/17 13:55 Dose: 200 mg Hydralazine HCl (Apresoline -) 50 mg PO TID [facility] Last Admin: 01/09/17 13:55 Dose: 50 mg Hydralazine HCl (Apresoline Injection -) 10 mg IVPUSH Q6H PRN PRN Reason: HYPERTENSION Insulin Aspart (Novolog Vial Sliding Scale -) 1 vial SQ ACHS [facility] PRN Reason: Protocol Last Admin: 01/09/17 11:32 Dose: Not Given Insulin Detemir (Levemir Vial) 15 units SQ BID@0700,2200 [facility] Last Admin: 01/09/17 06:35 Dose: 15 units Labetalol HCl (Normodyne -) 400 mg PO TID [facility] Last Admin: 01/09/17 13:55 Dose: 400 mg Losartan Potassium (Cozaar -) 100 mg PO DAILY [facility] Last Admin: 01/09/17 09:30 Dose: 100 mg Metoclopramide HCl (Reglan -) 5 mg PO TIDAC [facility] Last Admin: 01/09/17 11:32 Dose: 5 mg Oxycodone HCl (Roxicodone -) 10 mg PO Q4H PRN PRN Reason: PAIN Last Admin: 01/09/17 06:44 Dose: 10 mg Sevelamer Carbonate (Renvela -) 3,200 mg PO TIDCM [facility] Last Admin: 01/09/17 11:32 Dose: 3,200 mg Warfarin Sodium (Coumadin -) 5 mg PO DAILY@1800 [facility] Last Admin: 01/08/17 17:42 Dose: 5 mg Vital Signs - 24 hr 01/08/17 01/08/17 01/08/17 16:04 20:00 21:00 Temperature 97.8 F Pulse Rate 97 H 90 Respiratory 20 20 Rate Blood Pressure 188/101 151/80 O2 Sat by Pulse 100 Oximetry (%) 01/08/17 01/09/17 01/09/17 22:00 01:30 06:00 Temperature 97.8 F 98 F Pulse Rate 84 86 91 H Respiratory 20 18 18 Rate Blood Pressure 175/100 172/100 182/110 O2 Sat by Pulse Oximetry (%) 01/09/17 01/09/17 01/09/17 08:25 08:29 09:45 Temperature 98.2 F Pulse Rate 88 88 Respiratory 18 18 Rate Blood Pressure 177/104 142/78 O2 Sat by Pulse 98 Oximetry (%) 01/09/17 01/09/17 01/09/17 12:55 13:00 13:30 Temperature Pulse Rate 87 85 82 Respiratory 18 18 18 Rate Blood Pressure 174/112 163/112 140/88 O2 Sat by Pulse Oximetry (%) 01/09/17 01/09/17 14:00 14:01 Temperature Pulse Rate 82 86 Respiratory 18 Rate Blood Pressure 140/96 140/88 O2 Sat by Pulse Oximetry (%) Intake & Output 01/07/17 01/08/17 01/09/17 01/10/17 07:59 07:59 07:59 07:59 Intake Total 1038 2564 1310 Balance 1038 2564 1310 Weight 171 lb 6.4 oz nad no jvd rrr s1s2 no mrg ctabl nl eff aaox3 trace - 1+ LE edema to thigh abd nt nd pos bs no jaundice diaphoresis CBC, BMP 01/09/17 05:10 01/09/17 05:10 cta chest: tiny rll pe, no chf ecg 12/30/16: sr, nl intervals, no ischemic changes tele: sr echo 12/2016: mod lvh, nl lv/rv, mod tr, mod phtn, mild pr, a/p: 26 f hx esrd on hd, htn, dm, pe/dvt, prior atrial myxoma s/p surgery here with cp. cp, PE: -sxs atypical for cardiac cp, resolved now -ecg, ce's unremarkable, no signs acs -possibly due to PE seen on cta here -cont ac for pe, inr dosing per pmd -no signs right heart strain on echo here, no atrial findings that would indicate recurrence of myxoma. esrd: -cont hd per renal htn: -acute elevation of bp during hd,prbcs. ?transfusion related. that required ICU mgm't and nicardipine drip. - 01/09: bp suboptimal earlier today, but now improved. con't to monitor. cont current po meds for now.
[2017-01-09] MEDS: WARFARIN NA 5 MG TABLET (UD) PO SCH (17:39)
[2017-01-10] MEDS: LABETALOL HCL 200 MG TABLET (FP) PO SCH ×3 (06:28→22:17)
[2017-01-10] MEDS: cloNIDine HCL 0.1 MG TABLET PO SCH ×3 (06:29→22:16)
[2017-01-10] MEDS: METOCLOPRAMIDE HCL 10 MG TABLET (FP) PO SCH ×3 (06:29→17:12)
[2017-01-10] MEDS: hydrALAZINE HCL 50 MG TABLET (FP) PO SCH ×3 (06:29→22:16)
[2017-01-10] MEDS: GABAPENTIN 100 MG CAPSULE (FP) PO SCH ×3 (06:29→22:17)
[2017-01-10] MEDS: INSULIN DETEMIR 100 UNITS/ML MDV SQ SCH ×2 (06:30→22:16)
[2017-01-10] MEDS: INSULIN SLIDING SCALE (NOVOLOG) 1 VIAL SQ SCH ×4 (06:31→22:17)
[2017-01-10] MEDS: oxyCODONE HCL 5 MG TABLET PO PRN ×3 (06:49→20:21)
[2017-01-10] MEDS: ACETAMINOPHEN 325 MG TABLET (FP) PO PRN ×3 (06:50→20:21)
[2017-01-10 07:00] LABS: ANION GAP 15 (8-16); CALCIUM 8.4 mg/dL (8.5-10.1); CO2 26 mmol/L (21-32); CREATININE 5.2 mg/dL (0.55-1.02); GLUCOSE,RANDOM 128 mg/dL (74-106)
[2017-01-10 07:06] LABS: INR 2.05 (0.82-1.09); PROTHROMBIN TIME (PATIENT) 22.9 SEC (9.98-11.88)
[2017-01-10 07:17] LABS: MCH 27.6 pg (25.7-33.7); MCHC 31.4 g/dl (32.0-36.0); MEAN PLT VOLUME 9.3 fl (7.5-11.1); PLATELET COUNT 370 K/MM3 (134-434); RDW 17.5 % (11.6-15.6); WHITE BLOOD COUNT 8.3 K/mm3 (4.0-10.0)
[2017-01-10] MEDS: LOSARTAN POTASSIUM 50 MG TABLET (FP) PO SCH (09:17)
[2017-01-10] MEDS: SEVELAMER CARBONATE 800 MG TAB (FP) PO SCH ×3 (09:18→17:12)
--- NOTE | 2017-01-10 09:47 | PN ---
Progress Note, Physician Chief Complaint: no complaints - Current Medication List Current Medications: Active Medications Acetaminophen (Tylenol -) 325 mg PO Q6H PRN PRN Reason: PAIN Last Admin: 01/10/17 06:50 Dose: 325 mg Clonidine (Catapres -) 0.3 mg PO TID [facility] Last Admin: 01/10/17 06:29 Dose: 0.3 mg Gabapentin (Neurontin -) 200 mg PO TID [facility] Last Admin: 01/10/17 06:29 Dose: 200 mg Hydralazine HCl (Apresoline -) 50 mg PO TID [facility] Last Admin: 01/10/17 06:29 Dose: 50 mg Hydralazine HCl (Apresoline Injection -) 10 mg IVPUSH Q6H PRN PRN Reason: HYPERTENSION Insulin Aspart (Novolog Vial Sliding Scale -) 1 vial SQ ACHS [facility] PRN Reason: Protocol Last Admin: 01/10/17 06:31 Dose: 2 units Insulin Detemir (Levemir Vial) 15 units SQ BID@0700,2200 [facility] Last Admin: 01/10/17 06:30 Dose: 15 units Labetalol HCl (Normodyne -) 400 mg PO TID [facility] Last Admin: 01/10/17 06:28 Dose: 400 mg Losartan Potassium (Cozaar -) 100 mg PO DAILY [facility] Last Admin: 01/10/17 09:17 Dose: 100 mg Metoclopramide HCl (Reglan -) 5 mg PO TIDAC [facility] Last Admin: 01/10/17 06:29 Dose: 5 mg Oxycodone HCl (Roxicodone -) 10 mg PO Q4H PRN PRN Reason: PAIN Last Admin: 01/10/17 06:49 Dose: 10 mg Sevelamer Carbonate (Renvela -) 3,200 mg PO TIDCM [facility] Last Admin: 01/10/17 09:18 Dose: 3,200 mg Warfarin Sodium (Coumadin -) 5 mg PO DAILY@1800 [facility] Last Admin: 01/09/17 17:39 Dose: 5 mg - Objective Vital Signs: Vital Signs Temperature 98.0 F 01/10/17 07:29 Pulse Rate 82 01/10/17 07:29 Respiratory Rate 20 01/10/17 07:36 Blood Pressure 143/88 01/10/17 07:29 O2 Sat by Pulse Oximetry (%) 98 01/09/17 21:00 Constitutional: Yes: No Distress Cardiovascular: Yes: Regular Rate and Rhythm Respiratory: Yes: CTA Bilaterally Gastrointestinal: Yes: Normal Bowel Sounds, Soft, Distention. No: Tenderness Edema: Yes (decreased) Labs: CBC, BMP 01/10/17 05:10 01/10/17 05:10 INR, PTT INR 2.05 (0.82-1.09) H 01/10/17 05:10 Problem List - Problems (1) Chest pain Code(s): R07.9 - CHEST PAIN, UNSPECIFIED Qualifiers: Chest pain type: pleurodynia Qualified Code(s): R07.81 - Pleurodynia; R07.81 - Pleurodynia (2) Pulmonary embolism Code(s): I26.99 - OTHER PULMONARY EMBOLISM WITHOUT ACUTE COR PULMONALE Qualifiers: Pulmonary embolism type: other Chronicity: acute Acute cor pulmonale presence: without acute cor pulmonale Qualified Code(s): I26.99 - Other pulmonary embolism without acute cor pulmonale; I26.99 - Other pulmonary embolism without acute cor pulmonale; I26.99 - Other pulmonary embolism without acute cor pulmonale; I26.99 - Other pulmonary embolism without acute cor pulmonale (3) ESRD (end stage renal disease) on dialysis Code(s): N18.6 - END STAGE RENAL DISEASE Z99.2 - DEPENDENCE ON RENAL DIALYSIS (4) HTN (hypertension) Code(s): I10 - ESSENTIAL (PRIMARY) HYPERTENSION Qualifiers: Hypertension type: renovascular hypertension Qualified Code(s): I15.0 - Renovascular hypertension; I15.0 - Renovascular hypertension; I15.0 - Renovascular hypertension (5) Anemia Code(s): D64.9 - ANEMIA, UNSPECIFIED Qualifiers: Folate deficiency anemia type: dietary (6) Hypertensive urgency Code(s): I16.0 - HYPERTENSIVE URGENCY (7) Acute on chronic diastolic CHF (congestive heart failure) Code(s): I50.33 - ACUTE ON CHRONIC DIASTOLIC (CONGESTIVE) HEART FAILURE Assessment/Plan Coumadin per INR BP much better she needs her AM dose of BP meds especially Clonidine prior to dialysis monitor BP OOB HCT stable dc planning PT eval
[2017-01-10] MEDS ORDERED: WARFARIN NA 5 MG TABLET (UD) PO SCH (09:48)
--- NOTE | 2017-01-10 10:26 | PN ---
Progress Note, Physician History of Present Illness: pulmonary alert,nad,-sob,-cp - Current Medication List Current Medications: Active Medications Acetaminophen (Tylenol -) 325 mg PO Q6H PRN PRN Reason: PAIN Last Admin: 01/10/17 06:50 Dose: 325 mg Clonidine (Catapres -) 0.3 mg PO TID [facility] Last Admin: 01/10/17 06:29 Dose: 0.3 mg Gabapentin (Neurontin -) 200 mg PO TID [facility] Last Admin: 01/10/17 06:29 Dose: 200 mg Hydralazine HCl (Apresoline -) 50 mg PO TID [facility] Last Admin: 01/10/17 06:29 Dose: 50 mg Hydralazine HCl (Apresoline Injection -) 10 mg IVPUSH Q6H PRN PRN Reason: HYPERTENSION Insulin Aspart (Novolog Vial Sliding Scale -) 1 vial SQ ACHS [facility] PRN Reason: Protocol Last Admin: 01/10/17 06:31 Dose: 2 units Insulin Detemir (Levemir Vial) 15 units SQ BID@0700,2200 [facility] Last Admin: 01/10/17 06:30 Dose: 15 units Labetalol HCl (Normodyne -) 400 mg PO TID [facility] Last Admin: 01/10/17 06:28 Dose: 400 mg Losartan Potassium (Cozaar -) 100 mg PO DAILY [facility] Last Admin: 01/10/17 09:17 Dose: 100 mg Metoclopramide HCl (Reglan -) 5 mg PO TIDAC [facility] Last Admin: 01/10/17 06:29 Dose: 5 mg Oxycodone HCl (Roxicodone -) 10 mg PO Q4H PRN PRN Reason: PAIN Last Admin: 01/10/17 06:49 Dose: 10 mg Sevelamer Carbonate (Renvela -) 3,200 mg PO TIDCM [facility] Last Admin: 01/10/17 09:18 Dose: 3,200 mg Warfarin Sodium 5 mg/ Warfarin (Sodium 2 mg) 7 mg PO DAILY@1800 [facility] - Objective Vital Signs: Vital Signs Temperature 98.0 F 01/10/17 07:29 Pulse Rate 82 01/10/17 07:29 Respiratory Rate 20 01/10/17 07:36 Blood Pressure 143/88 01/10/17 07:29 O2 Sat by Pulse Oximetry (%) 98 01/09/17 21:00 Constitutional: Yes: Calm, Thin Eyes: Yes: WNL HENT: Yes: WNL Neck: Yes: WNL Cardiovascular: Yes: Regular Rate and Rhythm, S1, S2 Respiratory: Yes: CTA Bilaterally Gastrointestinal: Yes: Normal Bowel Sounds, Soft Extremities: Yes: WNL Edema: Yes Labs: CBC, BMP 01/10/17 05:10 01/10/17 05:10 INR, PTT INR 2.05 (0.82-1.09) H 01/10/17 05:10 Problem List - Problems (1) Chest pain Code(s): R07.9 - CHEST PAIN, UNSPECIFIED Qualifiers: Chest pain type: pleurodynia Qualified Code(s): R07.81 - Pleurodynia; R07.81 - Pleurodynia (2) Pulmonary embolism Code(s): I26.99 - OTHER PULMONARY EMBOLISM WITHOUT ACUTE COR PULMONALE Qualifiers: Pulmonary embolism type: other Chronicity: acute Acute cor pulmonale presence: without acute cor pulmonale Qualified Code(s): I26.99 - Other pulmonary embolism without acute cor pulmonale; I26.99 - Other pulmonary embolism without acute cor pulmonale; I26.99 - Other pulmonary embolism without acute cor pulmonale; I26.99 - Other pulmonary embolism without acute cor pulmonale (3) ESRD (end stage renal disease) on dialysis Code(s): N18.6 - END STAGE RENAL DISEASE Z99.2 - DEPENDENCE ON RENAL DIALYSIS (4) HTN (hypertension) Code(s): I10 - ESSENTIAL (PRIMARY) HYPERTENSION Qualifiers: Hypertension type: renovascular hypertension Qualified Code(s): I15.0 - Renovascular hypertension; I15.0 - Renovascular hypertension; I15.0 - Renovascular hypertension (5) Anemia Code(s): D64.9 - ANEMIA, UNSPECIFIED Qualifiers: Folate deficiency anemia type: dietary (6) End stage chronic kidney disease Code(s): N18.6 - END STAGE RENAL DISEASE Z99.2 - DEPENDENCE ON RENAL DIALYSIS (7) History of pulmonary embolus (PE) Code(s): Z86.711 - PERSONAL HISTORY OF PULMONARY EMBOLISM (8) Pulmonary HTN Code(s): I27.20 - PULMONARY HYPERTENSION, UNSPECIFIED Assessment/Plan IMP PULMONARY EMBOLISM CP/SOB ESRD ON HD HTN IDDM H/O R ATRIAL MYXOMA H/O DVT/PE PULMONARY HTN S/P HYPERTENSIVE URGENCY PLAN AC SUPPLEMENTAL O2 HD PER RENAL W/U FOR HYPERCOAGULABLE STATE OUTPATIENT DR BECERRA Problem List - Problems (1) Chest pain Code(s): R07.9 - CHEST PAIN, UNSPECIFIED Qualifiers: Chest pain type: pleurodynia Qualified Code(s): R07.81 - Pleurodynia; R07.81 - Pleurodynia (2) Pulmonary embolism Code(s): I26.99 - OTHER PULMONARY EMBOLISM WITHOUT ACUTE COR PULMONALE Qualifiers: Pulmonary embolism type: other Chronicity: acute Acute cor pulmonale presence: without acute cor pulmonale Qualified Code(s): I26.99 - Other pulmonary embolism without acute cor pulmonale; I26.99 - Other pulmonary embolism without acute cor pulmonale; I26.99 - Other pulmonary embolism without acute cor pulmonale; I26.99 - Other pulmonary embolism without acute cor pulmonale (3) ESRD (end stage renal disease) on dialysis Code(s): N18.6 - END STAGE RENAL DISEASE Z99.2 - DEPENDENCE ON RENAL DIALYSIS (4) HTN (hypertension) Code(s): I10 - ESSENTIAL (PRIMARY) HYPERTENSION Qualifiers: Hypertension type: renovascular hypertension Qualified Code(s): I15.0 - Renovascular hypertension; I15.0 - Renovascular hypertension; I15.0 - Renovascular hypertension (5) Anemia Code(s): D64.9 - ANEMIA, UNSPECIFIED Qualifiers: Folate deficiency anemia type: dietary (6) End stage chronic kidney disease Code(s): N18.6 - END STAGE RENAL DISEASE Z99.2 - DEPENDENCE ON RENAL DIALYSIS (7) History of pulmonary embolus (PE) Code(s): Z86.711 - PERSONAL HISTORY OF PULMONARY EMBOLISM (8) Pulmonary HTN Code(s): I27.20 - PULMONARY HYPERTENSION, UNSPECIFIED
[2017-01-10] MEDS ORDERED: WARFARIN NA 5 MG TABLET (UD) ONE (16:59)
[2017-01-10] MEDS ORDERED: WARFARIN NA 2 MG TABLET (UD) ONE (17:00)
[2017-01-10] MEDS: WARFARIN NA 5 MG, WARFARIN NA 2 MG PO SCH (17:12)
--- NOTE | 2017-01-10 20:10 | PN ---
Progress Note (short form) - Note Progress Note: CC: cc: cp s: LE edema signficantly improved but endorses abdominal bloating/discomfort. no cp, palps, dizziness. non smoker Current Medications Acetaminophen (Tylenol -) 325 mg PO Q6H PRN PRN Reason: PAIN Last Admin: 01/10/17 12:15 Dose: 325 mg Clonidine (Catapres -) 0.3 mg PO TID [facility] Last Admin: 01/10/17 13:54 Dose: 0.3 mg Gabapentin (Neurontin -) 200 mg PO TID [facility] Last Admin: 01/10/17 13:54 Dose: 200 mg Hydralazine HCl (Apresoline -) 50 mg PO TID [facility] Last Admin: 01/10/17 13:54 Dose: 50 mg Hydralazine HCl (Apresoline Injection -) 10 mg IVPUSH Q6H PRN PRN Reason: HYPERTENSION Insulin Aspart (Novolog Vial Sliding Scale -) 1 vial SQ ACHS [facility] PRN Reason: Protocol Last Admin: 01/10/17 17:05 Dose: 4 units Insulin Detemir (Levemir Vial) 15 units SQ BID@0700,2200 [facility] Last Admin: 01/10/17 06:30 Dose: 15 units Labetalol HCl (Normodyne -) 400 mg PO TID [facility] Last Admin: 01/10/17 13:54 Dose: 400 mg Losartan Potassium (Cozaar -) 100 mg PO DAILY [facility] Last Admin: 01/10/17 09:17 Dose: 100 mg Metoclopramide HCl (Reglan -) 5 mg PO TIDAC [facility] Last Admin: 01/10/17 17:12 Dose: 5 mg Oxycodone HCl (Roxicodone -) 10 mg PO Q4H PRN PRN Reason: PAIN Last Admin: 01/10/17 12:16 Dose: 10 mg Sevelamer Carbonate (Renvela -) 3,200 mg PO TIDCM [facility] Last Admin: 01/10/17 17:12 Dose: 3,200 mg Warfarin Sodium 5 mg/ Warfarin (Sodium 2 mg) 7 mg PO DAILY@1800 [facility] Last Admin: 01/10/17 17:12 Dose: 7 mg Vital Signs - 24 hr 01/09/17 01/09/17 01/10/17 20:45 21:00 02:00 Temperature 98 F 97.8 F Pulse Rate 92 H 81 Respiratory 20 20 20 Rate Blood Pressure 142/85 134/83 O2 Sat by Pulse 98 Oximetry (%) 01/10/17 01/10/17 01/10/17 06:22 07:29 07:36 Temperature 98 F 98.0 F Pulse Rate 82 82 Respiratory 20 20 20 Rate Blood Pressure 145/88 143/88 O2 Sat by Pulse Oximetry (%) 01/10/17 01/10/17 01/10/17 14:56 15:03 18:00 Temperature 98.2 F 98.1 F Pulse Rate 71 86 Respiratory 20 20 Rate Blood Pressure 156/93 155/95 O2 Sat by Pulse Oximetry (%) Intake & Output 01/08/17 01/09/17 01/10/17 01/11/17 07:59 07:59 07:59 07:59 Intake Total 2564 1310 660 710 Balance 2564 1310 660 710 Weight 171 lb 6.4 oz nad no jvd rrr s1s2 no mrg ctabl nl eff aaox3 trace LE edema abd nt nd pos bs no jaundice diaphoresis CBC, BMP 01/10/17 05:10 01/10/17 05:10 cta chest: tiny rll pe, no chf ecg 12/30/16: sr, nl intervals, no ischemic changes tele: sr echo 12/2016: mod lvh, nl lv/rv, mod tr, mod phtn, mild pr, a/p: 26 f hx esrd on hd, htn, dm, pe/dvt, prior atrial myxoma s/p surgery here with cp. cp, PE: -sxs atypical for cardiac cp, resolved now -ecg, ce's unremarkable, no signs acs -possibly due to PE seen on cta here -cont ac for pe, inr dosing per pmd -no signs right heart strain on echo here, no atrial findings that would indicate recurrence of myxoma. esrd: -cont hd per renal. edema significantly improved. htn: -acute elevation of bp during hd,prbcs. ?transfusion related. that required ICU mgm't and nicardipine drip. -bp improved. cont current po meds for now. stable from CV perspective, ok to d/c telemetry
[2017-01-11] MEDS: cloNIDine HCL 0.1 MG TABLET PO SCH ×3 (06:14→21:58)
[2017-01-11] MEDS: INSULIN DETEMIR 100 UNITS/ML MDV SQ SCH ×2 (06:14→21:58)
[2017-01-11] MEDS: LABETALOL HCL 200 MG TABLET (FP) PO SCH ×3 (06:14→21:57)
[2017-01-11] MEDS: hydrALAZINE HCL 50 MG TABLET (FP) PO SCH ×3 (06:14→21:57)
[2017-01-11] MEDS: GABAPENTIN 100 MG CAPSULE (FP) PO SCH ×3 (06:14→21:58)
[2017-01-11] MEDS: INSULIN SLIDING SCALE (NOVOLOG) 1 VIAL SQ SCH ×4 (06:15→21:58)
[2017-01-11] MEDS: METOCLOPRAMIDE HCL 10 MG TABLET (FP) PO SCH ×3 (06:15→16:32)
[2017-01-11] MEDS: oxyCODONE HCL 5 MG TABLET PO PRN ×3 (06:15→22:10)
[2017-01-11 06:46] LABS: MCH 27.9 pg (25.7-33.7); MCHC 31.6 g/dl (32.0-36.0); MEAN CELL VOLUME 88.3 fl (80-96); MEAN PLT VOLUME 9.2 fl (7.5-11.1); PLATELET COUNT 390 K/MM3 (134-434); RDW 17.6 % (11.6-15.6); WHITE BLOOD COUNT 9.1 K/mm3 (4.0-10.0)
[2017-01-11 06:50] LABS: INR 2.04 (0.82-1.09); PROTHROMBIN TIME (PATIENT) 22.8 SEC (9.98-11.88)
[2017-01-11] MEDS: SEVELAMER CARBONATE 800 MG TAB (FP) PO SCH ×3 (08:01→17:56)
[2017-01-11] MEDS ORDERED: EPOETIN ALFA 10,000 UNIT/1 ML VIAL IVPUSH ONE (09:00)
[2017-01-11] MEDS: LOSARTAN POTASSIUM 50 MG TABLET (FP) PO SCH (09:33)
[2017-01-11 10:35] LABS: ANION GAP 14 (8-16); CALCIUM 8.9 mg/dL (8.5-10.1); CO2 24 mmol/L (21-32); CREATININE 6.9 mg/dL (0.55-1.02); GLUCOSE,RANDOM 138 mg/dL (74-106); PHOSPHOROUS 6.8 mg/dL (2.5-4.9)
--- NOTE | 2017-01-11 10:52 | PN ---
Progress Note, Physician History of Present Illness: PULMONARY ALERT,NAD,ON DIALYSIS,-CP,-SOB - Current Medication List Current Medications: Active Medications Acetaminophen (Tylenol -) 325 mg PO Q6H PRN PRN Reason: PAIN Last Admin: 01/10/17 20:21 Dose: 325 mg Clonidine (Catapres -) 0.3 mg PO TID [facility] Last Admin: 01/11/17 06:14 Dose: 0.3 mg Gabapentin (Neurontin -) 200 mg PO TID [facility] Last Admin: 01/11/17 06:14 Dose: 200 mg Hydralazine HCl (Apresoline -) 50 mg PO TID [facility] Last Admin: 01/11/17 06:14 Dose: 50 mg Hydralazine HCl (Apresoline Injection -) 10 mg IVPUSH Q6H PRN PRN Reason: HYPERTENSION Insulin Aspart (Novolog Vial Sliding Scale -) 1 vial SQ ACHS [facility] PRN Reason: Protocol Last Admin: 01/11/17 06:15 Dose: 4 units Insulin Detemir (Levemir Vial) 15 units SQ BID@0700,2200 [facility] Last Admin: 01/11/17 06:14 Dose: 15 units Labetalol HCl (Normodyne -) 400 mg PO TID [facility] Last Admin: 01/11/17 06:14 Dose: 400 mg Losartan Potassium (Cozaar -) 100 mg PO DAILY [facility] Last Admin: 01/11/17 09:33 Dose: 100 mg Metoclopramide HCl (Reglan -) 5 mg PO TIDAC [facility] Last Admin: 01/11/17 06:15 Dose: 5 mg Oxycodone HCl (Roxicodone -) 10 mg PO Q4H PRN PRN Reason: PAIN Last Admin: 01/11/17 06:15 Dose: 10 mg Sevelamer Carbonate (Renvela -) 3,200 mg PO TIDCM [facility] Last Admin: 01/11/17 08:01 Dose: 3,200 mg Warfarin Sodium 5 mg/ Warfarin (Sodium 2 mg) 7 mg PO DAILY@1800 [facility] Last Admin: 01/10/17 17:12 Dose: 7 mg - Objective Vital Signs: Vital Signs Temperature 97.7 F 01/11/17 10:00 Pulse Rate 80 01/11/17 10:30 Respiratory Rate 18 01/11/17 10:30 Blood Pressure 147/100 01/11/17 10:30 O2 Sat by Pulse Oximetry (%) 100 01/11/17 10:00 Constitutional: Yes: Well Nourished, Calm Eyes: Yes: WNL HENT: Yes: WNL Neck: Yes: WNL Cardiovascular: Yes: Regular Rate and Rhythm, S1, S2 Respiratory: Yes: CTA Bilaterally Gastrointestinal: Yes: Normal Bowel Sounds, Soft Extremities: Yes: WNL Edema: Yes Labs: CBC, BMP 01/11/17 09:30 INR, PTT INR 2.04 (0.82-1.09) H 01/11/17 06:20 Problem List - Problems (1) Chest pain Code(s): R07.9 - CHEST PAIN, UNSPECIFIED Qualifiers: Chest pain type: pleurodynia Qualified Code(s): R07.81 - Pleurodynia; R07.81 - Pleurodynia (2) Pulmonary embolism Code(s): I26.99 - OTHER PULMONARY EMBOLISM WITHOUT ACUTE COR PULMONALE Qualifiers: Pulmonary embolism type: other Chronicity: acute Acute cor pulmonale presence: without acute cor pulmonale Qualified Code(s): I26.99 - Other pulmonary embolism without acute cor pulmonale; I26.99 - Other pulmonary embolism without acute cor pulmonale; I26.99 - Other pulmonary embolism without acute cor pulmonale; I26.99 - Other pulmonary embolism without acute cor pulmonale (3) ESRD (end stage renal disease) on dialysis Code(s): N18.6 - END STAGE RENAL DISEASE Z99.2 - DEPENDENCE ON RENAL DIALYSIS (4) HTN (hypertension) Code(s): I10 - ESSENTIAL (PRIMARY) HYPERTENSION Qualifiers: Hypertension type: renovascular hypertension Qualified Code(s): I15.0 - Renovascular hypertension; I15.0 - Renovascular hypertension; I15.0 - Renovascular hypertension (5) Anemia Code(s): D64.9 - ANEMIA, UNSPECIFIED Qualifiers: Folate deficiency anemia type: dietary (6) End stage chronic kidney disease Code(s): N18.6 - END STAGE RENAL DISEASE Z99.2 - DEPENDENCE ON RENAL DIALYSIS (7) History of pulmonary embolus (PE) Code(s): Z86.711 - PERSONAL HISTORY OF PULMONARY EMBOLISM (8) Pulmonary HTN Code(s): I27.20 - PULMONARY HYPERTENSION, UNSPECIFIED Assessment/Plan IMP PULMONARY EMBOLISM CP/SOB ESRD ON HD HTN IDDM H/O R ATRIAL MYXOMA H/O DVT/PE PULMONARY HTN S/P HYPERTENSIVE URGENCY PLAN AC SUPPLEMENTAL O2 HD PER RENAL W/U FOR HYPERCOAGULABLE STATE OUTPATIENT DR BECERRA Problem List - Problems (1) Chest pain Code(s): R07.9 - CHEST PAIN, UNSPECIFIED Qualifiers: Chest pain type: pleurodynia Qualified Code(s): R07.81 - Pleurodynia; R07.81 - Pleurodynia (2) Pulmonary embolism Code(s): I26.99 - OTHER PULMONARY EMBOLISM WITHOUT ACUTE COR PULMONALE Qualifiers: Pulmonary embolism type: other Chronicity: acute Acute cor pulmonale presence: without acute cor pulmonale Qualified Code(s): I26.99 - Other pulmonary embolism without acute cor pulmonale; I26.99 - Other pulmonary embolism without acute cor pulmonale; I26.99 - Other pulmonary embolism without acute cor pulmonale; I26.99 - Other pulmonary embolism without acute cor pulmonale (3) ESRD (end stage renal disease) on dialysis Code(s): N18.6 - END STAGE RENAL DISEASE Z99.2 - DEPENDENCE ON RENAL DIALYSIS (4) HTN (hypertension) Code(s): I10 - ESSENTIAL (PRIMARY) HYPERTENSION Qualifiers: Hypertension type: renovascular hypertension Qualified Code(s): I15.0 - Renovascular hypertension; I15.0 - Renovascular hypertension; I15.0 - Renovascular hypertension (5) Anemia Code(s): D64.9 - ANEMIA, UNSPECIFIED Qualifiers: Folate deficiency anemia type: dietary (6) End stage chronic kidney disease Code(s): N18.6 - END STAGE RENAL DISEASE Z99.2 - DEPENDENCE ON RENAL DIALYSIS (7) History of pulmonary embolus (PE) Code(s): Z86.711 - PERSONAL HISTORY OF PULMONARY EMBOLISM (8) Pulmonary HTN Code(s): I27.20 - PULMONARY HYPERTENSION, UNSPECIFIED
[2017-01-11 10:53] LABS: MCH 27.4 pg (25.7-33.7); MCHC 31.1 g/dl (32.0-36.0); MEAN CELL VOLUME 87.8 fl (80-96); MEAN PLT VOLUME 9.2 fl (7.5-11.1); PLATELET COUNT 391 K/MM3 (134-434); RDW 17.3 % (11.6-15.6); WHITE BLOOD COUNT 9.2 K/mm3 (4.0-10.0)
--- NOTE | 2017-01-11 14:12 | PN ---
Progress Note (short form) - Note Progress Note: Renal Follow up for ESRD/Volume overload Pt seen and examined during dialysis BP good today AVF with good flow and pressures goal UF is 4L pt without any acute complaints Vital Signs Temperature 97.7 F 01/11/17 10:00 Pulse Rate 92 H 01/11/17 13:46 Respiratory Rate 18 01/11/17 13:46 Blood Pressure 174/100 01/11/17 13:46 O2 Sat by Pulse Oximetry (%) 100 01/11/17 10:00 Intake & Output 01/08/17 01/09/17 01/10/17 01/11/17 23:59 23:59 23:59 23:59 Intake Total 1832 660 720 310 Balance 1832 660 720 310 Weight 171 lb 6.4 oz 170 lb 8 oz NAD, awake and alert RRR, No M/R Dec BS at lung bases, no rales soft NT/ND 1+ edema in LE, no cyanosis CBC, BMP 01/11/17 09:30 01/11/17 09:30 Current Medications Acetaminophen (Tylenol -) 325 mg PO Q6H PRN PRN Reason: PAIN Last Admin: 01/10/17 20:21 Dose: 325 mg Clonidine (Catapres -) 0.3 mg PO TID [facility] Last Admin: 01/11/17 14:07 Dose: 0.3 mg Gabapentin (Neurontin -) 200 mg PO TID [facility] Last Admin: 01/11/17 14:07 Dose: 200 mg Hydralazine HCl (Apresoline -) 50 mg PO TID [facility] Last Admin: 01/11/17 14:07 Dose: 50 mg Hydralazine HCl (Apresoline Injection -) 10 mg IVPUSH Q6H PRN PRN Reason: HYPERTENSION Insulin Aspart (Novolog Vial Sliding Scale -) 1 vial SQ ACHS [facility] PRN Reason: Protocol Last Admin: 01/11/17 12:07 Dose: 2 units Insulin Detemir (Levemir Vial) 15 units SQ BID@0700,2200 [facility] Last Admin: 01/11/17 06:14 Dose: 15 units Labetalol HCl (Normodyne -) 400 mg PO TID [facility] Last Admin: 01/11/17 14:07 Dose: 400 mg Losartan Potassium (Cozaar -) 100 mg PO DAILY [facility] Last Admin: 01/11/17 09:33 Dose: 100 mg Metoclopramide HCl (Reglan -) 5 mg PO TIDAC [facility] Last Admin: 01/11/17 12:08 Dose: 5 mg Oxycodone HCl (Roxicodone -) 10 mg PO Q4H PRN PRN Reason: PAIN Last Admin: 01/11/17 06:15 Dose: 10 mg Sevelamer Carbonate (Renvela -) 3,200 mg PO TIDCM [facility] Last Admin: 01/11/17 12:08 Dose: 3,200 mg Warfarin Sodium 5 mg/ Warfarin (Sodium 2 mg) 7 mg PO DAILY@1800 [facility] Last Admin: 01/10/17 17:12 Dose: 7 mg 26 year old woman with PMhx of ESRD on Hd (MWF), Hypertension, DM Type 1, Hx of DVT who presents with right sided pleuretic chest pain and found to have a suspected/small PE on CTA and volume expansion. Pt started to develop the pleuretic chest pain yesterday with dialysis. #Hypertensive Urgency BP improved continue antihypertensive meds on schedule (do not hold before dialysis) #Right sided PE w/o evidence of DVT a/c as per primary team INR therapeutic #Worsening Anemia Hgb improved s/p transfusion MACIE with HD #ESRD on HD with Fluid overload tolerating dialysis well today UF goal is 4L #Insulin dependent DM continue insulin as per primary #Renal Osteodystrophy renvela 3200mg TID with meals Thank you will follow Nathan Vo DO Problem List - Problems (1) Chest pain Code(s): R07.9 - CHEST PAIN, UNSPECIFIED Qualifiers: Chest pain type: pleurodynia Qualified Code(s): R07.81 - Pleurodynia; R07.81 - Pleurodynia (2) Pulmonary embolism Code(s): I26.99 - OTHER PULMONARY EMBOLISM WITHOUT ACUTE COR PULMONALE Qualifiers: Pulmonary embolism type: other Chronicity: acute Acute cor pulmonale presence: without acute cor pulmonale Qualified Code(s): I26.99 - Other pulmonary embolism without acute cor pulmonale; I26.99 - Other pulmonary embolism without acute cor pulmonale; I26.99 - Other pulmonary embolism without acute cor pulmonale; I26.99 - Other pulmonary embolism without acute cor pulmonale (3) ESRD (end stage renal disease) on dialysis Code(s): N18.6 - END STAGE RENAL DISEASE Z99.2 - DEPENDENCE ON RENAL DIALYSIS (4) HTN (hypertension) Code(s): I10 - ESSENTIAL (PRIMARY) HYPERTENSION Qualifiers: Hypertension type: renovascular hypertension Qualified Code(s): I15.0 - Renovascular hypertension; I15.0 - Renovascular hypertension; I15.0 - Renovascular hypertension (5) Anemia Code(s): D64.9 - ANEMIA, UNSPECIFIED Qualifiers: Folate deficiency anemia type: dietary (6) Diabetes mellitus, insulin dependent (IDDM), uncontrolled Code(s): E10.65 - TYPE 1 DIABETES MELLITUS WITH HYPERGLYCEMIA Qualifiers: Diabetes mellitus complication status: with unspecified complications Qualified Code(s): E10.8 - Type 1 diabetes mellitus with unspecified complications; E10.8 - Type 1 diabetes mellitus with unspecified complications; E10.8 - Type 1 diabetes mellitus with unspecified complications; E10.8 - Type 1 diabetes mellitus with unspecified complications; E10.65 - Type 1 diabetes mellitus with hyperglycemia; E10.65 - Type 1 diabetes mellitus with hyperglycemia; E10.65 - Type 1 diabetes mellitus with hyperglycemia; E10.65 - Type 1 diabetes mellitus with hyperglycemia
--- NOTE | 2017-01-11 16:16 | PN ---
Progress Note, Physician Chief Complaint: no complaints - Current Medication List Current Medications: Active Medications Acetaminophen (Tylenol -) 325 mg PO Q6H PRN PRN Reason: PAIN Last Admin: 01/10/17 20:21 Dose: 325 mg Clonidine (Catapres -) 0.3 mg PO TID [facility] Last Admin: 01/11/17 14:07 Dose: 0.3 mg Gabapentin (Neurontin -) 200 mg PO TID [facility] Last Admin: 01/11/17 14:07 Dose: 200 mg Hydralazine HCl (Apresoline -) 50 mg PO TID [facility] Last Admin: 01/11/17 14:07 Dose: 50 mg Hydralazine HCl (Apresoline Injection -) 10 mg IVPUSH Q6H PRN PRN Reason: HYPERTENSION Insulin Aspart (Novolog Vial Sliding Scale -) 1 vial SQ ACHS [facility] PRN Reason: Protocol Last Admin: 01/11/17 12:07 Dose: 2 units Insulin Detemir (Levemir Vial) 15 units SQ BID@0700,2200 [facility] Last Admin: 01/11/17 06:14 Dose: 15 units Labetalol HCl (Normodyne -) 400 mg PO TID [facility] Last Admin: 01/11/17 14:07 Dose: 400 mg Losartan Potassium (Cozaar -) 100 mg PO DAILY [facility] Last Admin: 01/11/17 09:33 Dose: 100 mg Metoclopramide HCl (Reglan -) 5 mg PO TIDAC [facility] Last Admin: 01/11/17 12:08 Dose: 5 mg Oxycodone HCl (Roxicodone -) 10 mg PO Q4H PRN PRN Reason: PAIN Last Admin: 01/11/17 06:15 Dose: 10 mg Sevelamer Carbonate (Renvela -) 3,200 mg PO TIDCM [facility] Last Admin: 01/11/17 12:08 Dose: 3,200 mg Warfarin Sodium 5 mg/ Warfarin (Sodium 2 mg) 7 mg PO DAILY@1800 [facility] Last Admin: 01/10/17 17:12 Dose: 7 mg - Objective Vital Signs: Vital Signs Temperature 98.5 F 01/11/17 14:00 Pulse Rate 99 H 01/11/17 14:00 Respiratory Rate 18 01/11/17 13:46 Blood Pressure 163/100 01/11/17 14:00 O2 Sat by Pulse Oximetry (%) 100 01/11/17 10:00 Constitutional: Yes: No Distress Cardiovascular: Yes: Regular Rate and Rhythm Respiratory: Yes: Diminished Gastrointestinal: Yes: Normal Bowel Sounds, Soft, Abdomen, Obese. No: Distention, Tenderness Edema: Yes (decreased) Labs: CBC, BMP 01/11/17 09:30 01/11/17 09:30 INR, PTT INR 2.04 (0.82-1.09) H 01/11/17 06:20 Problem List - Problems (1) Chest pain Code(s): R07.9 - CHEST PAIN, UNSPECIFIED Qualifiers: Chest pain type: pleurodynia Qualified Code(s): R07.81 - Pleurodynia; R07.81 - Pleurodynia (2) Pulmonary embolism Code(s): I26.99 - OTHER PULMONARY EMBOLISM WITHOUT ACUTE COR PULMONALE Qualifiers: Pulmonary embolism type: other Chronicity: acute Acute cor pulmonale presence: without acute cor pulmonale Qualified Code(s): I26.99 - Other pulmonary embolism without acute cor pulmonale; I26.99 - Other pulmonary embolism without acute cor pulmonale; I26.99 - Other pulmonary embolism without acute cor pulmonale; I26.99 - Other pulmonary embolism without acute cor pulmonale (3) ESRD (end stage renal disease) on dialysis Code(s): N18.6 - END STAGE RENAL DISEASE Z99.2 - DEPENDENCE ON RENAL DIALYSIS (4) HTN (hypertension) Code(s): I10 - ESSENTIAL (PRIMARY) HYPERTENSION Qualifiers: Hypertension type: renovascular hypertension Qualified Code(s): I15.0 - Renovascular hypertension; I15.0 - Renovascular hypertension; I15.0 - Renovascular hypertension (5) Anemia Code(s): D64.9 - ANEMIA, UNSPECIFIED Qualifiers: Folate deficiency anemia type: dietary (6) Hypertensive urgency Code(s): I16.0 - HYPERTENSIVE URGENCY (7) Acute on chronic diastolic CHF (congestive heart failure) Code(s): I50.33 - ACUTE ON CHRONIC DIASTOLIC (CONGESTIVE) HEART FAILURE Assessment/Plan Coumadin per INR BP much better she needs her AM dose of BP meds especially Clonidine prior to dialysis monitor BP OOB HCT stable dc planning PT eval
[2017-01-11] MEDS ORDERED: WARFARIN NA 5 MG TABLET (UD) ONE (16:30)
[2017-01-11] MEDS ORDERED: WARFARIN NA 2 MG TABLET (UD) ONE (16:30)
[2017-01-11] MEDS: ACETAMINOPHEN 325 MG TABLET (FP) PO PRN (16:31)
--- NOTE | 2017-01-11 17:46 | PN ---
Progress Note (short form) - Note Progress Note: cc: cp s: LE edema improving. no cp, palps, dizziness. Had HD today. BP slightly elevated during HD. non smoker Current Medications Acetaminophen (Tylenol -) 325 mg PO Q6H PRN PRN Reason: PAIN Last Admin: 01/11/17 16:31 Dose: 325 mg Clonidine (Catapres -) 0.3 mg PO TID [facility] Last Admin: 01/11/17 14:07 Dose: 0.3 mg Gabapentin (Neurontin -) 200 mg PO TID [facility] Last Admin: 01/11/17 14:07 Dose: 200 mg Hydralazine HCl (Apresoline -) 50 mg PO TID [facility] Last Admin: 01/11/17 14:07 Dose: 50 mg Hydralazine HCl (Apresoline Injection -) 10 mg IVPUSH Q6H PRN PRN Reason: HYPERTENSION Insulin Aspart (Novolog Vial Sliding Scale -) 1 vial SQ ACHS [facility] PRN Reason: Protocol Last Admin: 01/11/17 16:32 Dose: 8 units Insulin Detemir (Levemir Vial) 15 units SQ BID@0700,2200 [facility] Last Admin: 01/11/17 06:14 Dose: 15 units Labetalol HCl (Normodyne -) 400 mg PO TID [facility] Last Admin: 01/11/17 14:07 Dose: 400 mg Losartan Potassium (Cozaar -) 100 mg PO DAILY [facility] Last Admin: 01/11/17 09:33 Dose: 100 mg Metoclopramide HCl (Reglan -) 5 mg PO TIDAC [facility] Last Admin: 01/11/17 16:32 Dose: 5 mg Oxycodone HCl (Roxicodone -) 10 mg PO Q4H PRN PRN Reason: PAIN Last Admin: 01/11/17 16:32 Dose: 10 mg Sevelamer Carbonate (Renvela -) 3,200 mg PO TIDCM [facility] Last Admin: 01/11/17 12:08 Dose: 3,200 mg Warfarin Sodium 5 mg/ Warfarin (Sodium 2 mg) 7 mg PO DAILY@1800 [facility] Last Admin: 01/10/17 17:12 Dose: 7 mg Vital Signs - 24 hr 01/10/17 01/10/17 01/11/17 21:00 22:00 02:08 Temperature 97.8 F 97.4 F L Pulse Rate 84 97 H Respiratory 20 20 20 Rate Blood Pressure 169/93 141/77 O2 Sat by Pulse 100 100 Oximetry (%) 01/11/17 01/11/17 01/11/17 06:00 09:00 09:24 Temperature 97.6 F 97.7 F Pulse Rate 86 81 Respiratory 20 20 20 Rate Blood Pressure 159/86 162/92 O2 Sat by Pulse 100 Oximetry (%) 01/11/17 01/11/17 01/11/17 09:25 09:30 10:00 Temperature 97.6 F 97.7 F Pulse Rate 84 78 80 Respiratory 18 18 18 Rate Blood Pressure 142/90 147/94 140/98 O2 Sat by Pulse 100 Oximetry (%) 01/11/17 01/11/17 01/11/17 10:30 11:00 11:30 Temperature Pulse Rate 80 80 86 Respiratory 18 18 18 Rate Blood Pressure 147/100 141/93 148/98 O2 Sat by Pulse Oximetry (%) 01/11/17 01/11/17 01/11/17 12:00 12:30 13:00 Temperature Pulse Rate 88 90 92 H Respiratory 18 18 18 Rate Blood Pressure 170/100 178/108 170/109 O2 Sat by Pulse Oximetry (%) 01/11/17 01/11/17 01/11/17 13:30 13:46 14:00 Temperature 98.5 F Pulse Rate 90 92 H 99 H Respiratory 18 18 Rate Blood Pressure 172/108 174/100 163/100 O2 Sat by Pulse Oximetry (%) 01/11/17 01/11/17 18:00 18:22 Temperature 98.9 F Pulse Rate 98 H 96 H Respiratory 20 20 Rate Blood Pressure 189/101 168/98 O2 Sat by Pulse Oximetry (%) Intake & Output 01/09/17 01/10/17 01/11/17 01/12/17 07:59 07:59 07:59 07:59 Intake Total 1310 660 710 320 Balance 1310 660 710 320 Weight 170 lb 8 oz nad no jvd rrr s1s2 no mrg ctabl nl eff aaox3 trace LE edema abd nt nd pos bs no jaundice diaphoresis CBC, BMP 01/11/17 09:30 01/11/17 09:30 cta chest: tiny rll pe, no chf ecg 12/30/16: sr, nl intervals, no ischemic changes tele: sr echo 12/2016: mod lvh, nl lv/rv, mod tr, mod phtn, mild pr, a/p: 26 f hx esrd on hd, htn, dm, pe/dvt, prior atrial myxoma s/p surgery here with cp. cp, PE: -sxs atypical for cardiac cp, resolved now -ecg, ce's unremarkable, no signs acs -possibly due to PE seen on cta here -cont ac for pe, inr dosing per pmd -no signs right heart strain on echo here, no atrial findings noted on echo that would indicate recurrence of myxoma. esrd: -cont hd per renal. edema continues to improve. htn: -acute elevation of bp during hd,prbcs. ?transfusion related. that required ICU mgm't and nicardipine drip. -bp improved. cont current po meds for now. - 01/11 bp elevation during HD, otherwise reasonable control. con't to monitor. stable from CV perspective, ok to d/c telemetry
[2017-01-11] MEDS: WARFARIN NA 5 MG, WARFARIN NA 2 MG PO SCH (17:56)
[2017-01-11] MEDS ORDERED: INSULIN (NOVOLOG) ASPART 100 UNITS/ML 10ML VIAL ONE (21:48)
[2017-01-11] MEDS ORDERED: POLYETHYLENE GLYCOL 3350 119 GM BTL PO ONE (22:00)
[2017-01-12] MEDS: LABETALOL HCL 200 MG TABLET (FP) PO SCH ×3 (06:30→21:56)
[2017-01-12] MEDS: GABAPENTIN 100 MG CAPSULE (FP) PO SCH ×3 (06:30→21:56)
[2017-01-12] MEDS: hydrALAZINE HCL 50 MG TABLET (FP) PO SCH ×3 (06:31→21:56)
[2017-01-12] MEDS: INSULIN SLIDING SCALE (NOVOLOG) 1 VIAL SQ SCH ×4 (06:31→21:59)
[2017-01-12] MEDS: cloNIDine HCL 0.1 MG TABLET PO SCH ×3 (06:31→21:56)
[2017-01-12] MEDS: INSULIN DETEMIR 100 UNITS/ML MDV SQ SCH ×2 (06:31→21:58)
[2017-01-12] MEDS: oxyCODONE HCL 5 MG TABLET PO PRN ×3 (06:51→21:55)
[2017-01-12 07:02] LABS: MCH 27.7 pg (25.7-33.7); MCHC 31.6 g/dl (32.0-36.0); MEAN CELL VOLUME 87.7 fl (80-96); MEAN PLT VOLUME 9.1 fl (7.5-11.1); PLATELET COUNT 385 K/MM3 (134-434); RDW 18.2 % (11.6-15.6); WHITE BLOOD COUNT 9.3 K/mm3 (4.0-10.0)
[2017-01-12] MEDS: ALBUTEROL SO4 0.083% IH SOL 2.5 MG/3 ML VIAL.NEB. NEB PRN ×4 (07:25→23:10)
[2017-01-12 08:07] LABS: INR 2.15 (0.82-1.09); PROTHROMBIN TIME (PATIENT) 23.7 SEC (9.98-11.88)
[2017-01-12] MEDS: SEVELAMER CARBONATE 800 MG TAB (FP) PO SCH ×3 (08:52→17:25)
[2017-01-12] MEDS: LOSARTAN POTASSIUM 50 MG TABLET (FP) PO SCH (09:32)
--- NOTE | 2017-01-12 10:50 | PN ---
Progress Note, Physician History of Present Illness: pulmonary alert,c/o chest tightness earlier currently improved - Current Medication List Current Medications: Active Medications Acetaminophen (Tylenol -) 325 mg PO Q6H PRN PRN Reason: PAIN Last Admin: 01/11/17 16:31 Dose: 325 mg Albuterol Sulfate (Ventolin 0.083% Nebulizer Soln -) 1 amp NEB Q6H PRN PRN Reason: SHORT OF BREATH/WHEEZING Last Admin: 01/12/17 07:25 Dose: 1 amp Clonidine (Catapres -) 0.3 mg PO TID [facility] Last Admin: 01/12/17 06:31 Dose: 0.3 mg Gabapentin (Neurontin -) 200 mg PO TID [facility] Last Admin: 01/12/17 06:30 Dose: 200 mg Hydralazine HCl (Apresoline -) 50 mg PO TID [facility] Last Admin: 01/12/17 06:31 Dose: 50 mg Hydralazine HCl (Apresoline Injection -) 10 mg IVPUSH Q6H PRN PRN Reason: HYPERTENSION Insulin Aspart (Novolog Vial Sliding Scale -) 1 vial SQ ACHS [facility] PRN Reason: Protocol Last Admin: 01/12/17 06:31 Dose: 2 units Insulin Detemir (Levemir Vial) 15 units SQ BID@0700,2200 [facility] Last Admin: 01/12/17 06:31 Dose: 15 units Labetalol HCl (Normodyne -) 400 mg PO TID [facility] Last Admin: 01/12/17 06:30 Dose: 400 mg Losartan Potassium (Cozaar -) 100 mg PO DAILY [facility] Last Admin: 01/12/17 09:32 Dose: 100 mg Oxycodone HCl (Roxicodone -) 10 mg PO Q6H PRN PRN Reason: PAIN Last Admin: 01/12/17 06:51 Dose: 10 mg Sevelamer Carbonate (Renvela -) 3,200 mg PO TIDCM [facility] Last Admin: 01/12/17 08:52 Dose: 3,200 mg Warfarin Sodium 5 mg/ Warfarin (Sodium 2 mg) 7 mg PO DAILY@1800 [facility] Last Admin: 01/11/17 17:56 Dose: 7 mg - Objective Vital Signs: Vital Signs Temperature 99.1 F 01/12/17 10:00 Pulse Rate 90 01/12/17 10:00 Respiratory Rate 20 01/12/17 10:00 Blood Pressure 145/85 01/12/17 10:00 O2 Sat by Pulse Oximetry (%) 95 01/12/17 09:00 Constitutional: Yes: Well Nourished, Calm Eyes: Yes: WNL HENT: Yes: WNL Neck: Yes: WNL Cardiovascular: Yes: Regular Rate and Rhythm, S1, S2 Respiratory: Yes: Diminished Gastrointestinal: Yes: Normal Bowel Sounds, Soft Extremities: Yes: WNL Edema: Yes Labs: CBC, BMP 01/12/17 05:10 01/11/17 09:30 INR, PTT INR 2.15 (0.82-1.09) H 01/12/17 05:10 Problem List - Problems (1) Chest pain Code(s): R07.9 - CHEST PAIN, UNSPECIFIED Qualifiers: Chest pain type: pleurodynia Qualified Code(s): R07.81 - Pleurodynia; R07.81 - Pleurodynia (2) Pulmonary embolism Code(s): I26.99 - OTHER PULMONARY EMBOLISM WITHOUT ACUTE COR PULMONALE Qualifiers: Pulmonary embolism type: other Chronicity: acute Acute cor pulmonale presence: without acute cor pulmonale Qualified Code(s): I26.99 - Other pulmonary embolism without acute cor pulmonale; I26.99 - Other pulmonary embolism without acute cor pulmonale; I26.99 - Other pulmonary embolism without acute cor pulmonale; I26.99 - Other pulmonary embolism without acute cor pulmonale (3) ESRD (end stage renal disease) on dialysis Code(s): N18.6 - END STAGE RENAL DISEASE Z99.2 - DEPENDENCE ON RENAL DIALYSIS (4) HTN (hypertension) Code(s): I10 - ESSENTIAL (PRIMARY) HYPERTENSION Qualifiers: Hypertension type: renovascular hypertension Qualified Code(s): I15.0 - Renovascular hypertension; I15.0 - Renovascular hypertension; I15.0 - Renovascular hypertension (5) Anemia Code(s): D64.9 - ANEMIA, UNSPECIFIED Qualifiers: Folate deficiency anemia type: dietary (6) End stage chronic kidney disease Code(s): N18.6 - END STAGE RENAL DISEASE Z99.2 - DEPENDENCE ON RENAL DIALYSIS (7) History of pulmonary embolus (PE) Code(s): Z86.711 - PERSONAL HISTORY OF PULMONARY EMBOLISM (8) Pulmonary HTN Code(s): I27.20 - PULMONARY HYPERTENSION, UNSPECIFIED Assessment/Plan IMP PULMONARY EMBOLISM CP/SOB ESRD ON HD HTN IDDM H/O R ATRIAL MYXOMA H/O DVT/PE PULMONARY HTN S/P HYPERTENSIVE URGENCY PLAN AC SUPPLEMENTAL O2 HD PER RENAL W/U FOR HYPERCOAGULABLE STATE OUTPATIENT MONITOR BP DR BECERRA Problem List - Problems (1) Chest pain Code(s): R07.9 - CHEST PAIN, UNSPECIFIED Qualifiers: Chest pain type: pleurodynia Qualified Code(s): R07.81 - Pleurodynia; R07.81 - Pleurodynia (2) Pulmonary embolism Code(s): I26.99 - OTHER PULMONARY EMBOLISM WITHOUT ACUTE COR PULMONALE Qualifiers: Pulmonary embolism type: other Chronicity: acute Acute cor pulmonale presence: without acute cor pulmonale Qualified Code(s): I26.99 - Other pulmonary embolism without acute cor pulmonale; I26.99 - Other pulmonary embolism without acute cor pulmonale; I26.99 - Other pulmonary embolism without acute cor pulmonale; I26.99 - Other pulmonary embolism without acute cor pulmonale (3) ESRD (end stage renal disease) on dialysis Code(s): N18.6 - END STAGE RENAL DISEASE Z99.2 - DEPENDENCE ON RENAL DIALYSIS (4) HTN (hypertension) Code(s): I10 - ESSENTIAL (PRIMARY) HYPERTENSION Qualifiers: Hypertension type: renovascular hypertension Qualified Code(s): I15.0 - Renovascular hypertension; I15.0 - Renovascular hypertension; I15.0 - Renovascular hypertension (5) Anemia Code(s): D64.9 - ANEMIA, UNSPECIFIED Qualifiers: Folate deficiency anemia type: dietary (6) End stage chronic kidney disease Code(s): N18.6 - END STAGE RENAL DISEASE Z99.2 - DEPENDENCE ON RENAL DIALYSIS (7) History of pulmonary embolus (PE) Code(s): Z86.711 - PERSONAL HISTORY OF PULMONARY EMBOLISM (8) Pulmonary HTN Code(s): I27.20 - PULMONARY HYPERTENSION, UNSPECIFIED
[2017-01-12] MEDS ORDERED: INSULIN (NOVOLOG) ASPART 100 UNITS/ML 10ML VIAL ONE ×2 (12:19→21:53)
--- NOTE | 2017-01-12 12:27 | DS ---
Physical Examination Vital Signs: Vital Signs Temperature 99.1 F 01/12/17 10:00 Pulse Rate 90 01/12/17 10:00 Respiratory Rate 20 01/12/17 10:00 Blood Pressure 145/85 01/12/17 10:00 O2 Sat by Pulse Oximetry (%) 95 01/12/17 09:00 Constitutional: Yes: No Distress, Calm Cardiovascular: Yes: Regular Rate and Rhythm Respiratory: Yes: Diminished Gastrointestinal: Yes: Normal Bowel Sounds, Soft, Distention. No: Tenderness Edema: Yes (decreased) Labs: CBC, BMP 01/12/17 05:10 01/11/17 09:30 Discharge Summary Reason For Visit: PULMONARY EMBOLISM Current Active Problems Acute on chronic diastolic CHF (congestive heart failure) (Acute) Chest pain (Acute) Hypertensive urgency (Acute) Leukocytosis (Acute) Pulmonary HTN (Acute) Pulmonary embolism (Acute) ESRD (end stage renal disease) on dialysis (Chronic) HTN (hypertension) (Chronic) Hospital Course: Admitted for chest pain , SOB- Volume overloaded, PE on CTA chest Seen by Renal , Cardiology, pulmonary Started her on Heparin drip bridging with Coumadin INR is now therapeutic Pt has been getting daily dialysis with fluid removal-- every time she gets about 8 liters of fluid removed per session Pt has been seen multiple times having large amounts of fluids, water, juice, soda and salty foods in her room. Has been told multiple times to be compliant with diet and fluid restriction She will be getting dialysis 4 times per week per Renal Stable for dc home recommend VNS but pt states that she has aides and help at home. - Instructions Referrals: Edna Calero MD [Primary Care Provider] - Disposition: HOME - Home Medications Comprehensive Discharge Medication List: Ambulatory Orders Gabapentin 100 mg PO TID 03/11/16 Clonidine HCl [Catapres -] 0.3 mg PO TID #90 tablet 07/14/16 Hydralazine HCl [Apresoline -] 25 mg PO TID #60 tablet 07/14/16 Sevelamer Carbonate [Renvela -] 1,600 mg PO TIDCM #60 tab 07/14/16 Oxycodone HCl/Acetaminophen [Percocet 5-325 mg Tablet] 1 tab PO Q6H PRN #60 tablet MDD 4 08/11/16 Acetaminophen [Tylenol .Regular Strength -] 325 mg PO Q6H PRN #0 tablet Insulin Lispro [Humalog Kwikpen U-100] 0 unit SQ TID 12/21/16 Losartan Potassium [Cozaar -] 100 mg PO DAILY 12/21/16 Insulin (Levemir) [Levemir Flexpen -] 15 units SQ BID #5 pen 12/24/16 Metoclopramide HCl [Reglan -] 5 mg PO TIDAC #90 tablet 12/24/16 Metoclopramide HCl [Reglan] 5 mg PO TIDCM 90 Days 12/24/16 Syringe Ndl,Insul U-500,0.5ML [Insulin Syringe] 1 each MC BID #120 disp.syrin Clonidine HCl [Catapres -] 0.3 mg PO TID tablet 12/26/16 Labetalol HCl [Normodyne -] 400 mg PO TID #60 tablet 12/26/16 Nifedipine ER [Procardia XL -] 90 mg PO DAILY #60 tab 12/26/16
--- NOTE | 2017-01-12 15:38 | PN ---
Progress Note (short form) - Note Progress Note: cc: cp s: LE edema improving. no cp, palps, dizziness. non smoker Current Medications Acetaminophen (Tylenol -) 325 mg PO Q6H PRN PRN Reason: PAIN Last Admin: 01/11/17 16:31 Dose: 325 mg Albuterol Sulfate (Ventolin 0.083% Nebulizer Soln -) 1 amp NEB Q6H PRN PRN Reason: SHORT OF BREATH/WHEEZING Last Admin: 01/12/17 14:53 Dose: 1 amp Clonidine (Catapres -) 0.3 mg PO TID [facility] Last Admin: 01/12/17 13:17 Dose: 0.3 mg Gabapentin (Neurontin -) 200 mg PO TID [facility] Last Admin: 01/12/17 13:17 Dose: 200 mg Hydralazine HCl (Apresoline -) 50 mg PO TID [facility] Last Admin: 01/12/17 13:17 Dose: 50 mg Hydralazine HCl (Apresoline Injection -) 10 mg IVPUSH Q6H PRN PRN Reason: HYPERTENSION Insulin Aspart (Novolog Vial Sliding Scale -) 1 vial SQ ACHS [facility] PRN Reason: Protocol Last Admin: 01/12/17 12:17 Dose: 6 units Insulin Detemir (Levemir Vial) 15 units SQ BID@0700,2200 [facility] Last Admin: 01/12/17 06:31 Dose: 15 units Labetalol HCl (Normodyne -) 400 mg PO TID [facility] Last Admin: 01/12/17 13:17 Dose: 400 mg Losartan Potassium (Cozaar -) 100 mg PO DAILY [facility] Last Admin: 01/12/17 09:32 Dose: 100 mg Oxycodone HCl (Roxicodone -) 10 mg PO Q6H PRN PRN Reason: PAIN Last Admin: 01/12/17 06:51 Dose: 10 mg Sevelamer Carbonate (Renvela -) 3,200 mg PO TIDCM [facility] Last Admin: 01/12/17 12:17 Dose: 3,200 mg Warfarin Sodium 5 mg/ Warfarin (Sodium 2 mg) 7 mg PO DAILY@1800 [facility] Last Admin: 01/11/17 17:56 Dose: 7 mg Vital Signs - 24 hr 01/11/17 01/11/17 01/11/17 18:00 18:22 21:00 Temperature 98.9 F 98.5 F Pulse Rate 98 H 96 H 97 H Respiratory 20 20 20 Rate Blood Pressure 189/101 168/98 156/101 O2 Sat by Pulse 95 Oximetry (%) 01/11/17 01/12/17 01/12/17 22:00 02:59 06:00 Temperature 98.5 F 98.7 F Pulse Rate 84 92 H Respiratory 20 20 Rate Blood Pressure 170/105 149/94 O2 Sat by Pulse 95 Oximetry (%) 01/12/17 01/12/17 01/12/17 09:00 10:00 14:00 Temperature 99.1 F 98.5 F Pulse Rate 90 91 H Respiratory 20 20 Rate Blood Pressure 145/85 153/102 O2 Sat by Pulse 95 Oximetry (%) Intake & Output 01/10/17 01/11/17 01/12/17 01/13/17 07:59 07:59 07:59 07:59 Intake Total 660 710 330 570 Balance 660 710 330 570 Weight 170 lb 8 oz nad no jvd rrr s1s2 no mrg ctabl nl eff aaox3 trace LE edema abd nt nd pos bs no jaundice diaphoresis CBC, BMP 01/12/17 05:10 01/11/17 09:30 cta chest: tiny rll pe, no chf ecg 12/30/16: sr, nl intervals, no ischemic changes tele: sr echo 12/2016: mod lvh, nl lv/rv, mod tr, mod phtn, mild pr, a/p: 26 f hx esrd on hd, htn, dm, pe/dvt, prior atrial myxoma s/p surgery here with cp. cp, PE: -sxs atypical for cardiac cp, resolved now -ecg, ce's unremarkable, no signs acs -possibly due to PE seen on cta here -cont ac for pe, inr dosing per pmd -no signs right heart strain on echo here, no atrial findings noted on echo that would indicate recurrence of myxoma. esrd: -cont hd per renal. edema continues to improve. htn: -acute elevation of bp during hd,prbcs. ?transfusion related. that required ICU mgm't and nicardipine drip. -bp improved. cont current po meds for now. - 01/11 bp elevation during HD, otherwise reasonable control. con't to monitor. - 01/12 bp improved. stable from CV perspective, ok to d/c telemetry
--- NOTE | 2017-01-12 16:10 | PN ---
Progress Note (short form) - Note Progress Note: Renal Follow up for ESRD/Volume overload Pt seen and examined at the bedside reports abd fullness no sob, chest pain requesting extra fluid removal today pt noted to have popcorn and other outside foods on her table Vital Signs Temperature 98.5 F 01/12/17 14:00 Pulse Rate 91 H 01/12/17 14:00 Respiratory Rate 20 01/12/17 10:00 Blood Pressure 153/102 01/12/17 14:00 O2 Sat by Pulse Oximetry (%) 95 01/12/17 09:00 Intake & Output 01/09/17 01/10/17 01/11/17 01/12/17 23:59 23:59 23:59 23:59 Intake Total 660 720 330 570 Balance 660 720 330 570 Weight 170 lb 8 oz NAD, awake and alert RRR, No M/R Dec BS at lung bases, no rales soft NT/ND 1+ edema in LE, no cyanosis CBC, BMP 01/12/17 05:10 01/11/17 09:30 Current Medications Acetaminophen (Tylenol -) 325 mg PO Q6H PRN PRN Reason: PAIN Last Admin: 01/11/17 16:31 Dose: 325 mg Albuterol Sulfate (Ventolin 0.083% Nebulizer Soln -) 1 amp NEB Q6H PRN PRN Reason: SHORT OF BREATH/WHEEZING Last Admin: 01/12/17 14:53 Dose: 1 amp Clonidine (Catapres -) 0.3 mg PO TID [facility] Last Admin: 01/12/17 13:17 Dose: 0.3 mg Gabapentin (Neurontin -) 200 mg PO TID [facility] Last Admin: 01/12/17 13:17 Dose: 200 mg Hydralazine HCl (Apresoline -) 50 mg PO TID [facility] Last Admin: 01/12/17 13:17 Dose: 50 mg Hydralazine HCl (Apresoline Injection -) 10 mg IVPUSH Q6H PRN PRN Reason: HYPERTENSION Insulin Aspart (Novolog Vial Sliding Scale -) 1 vial SQ ACHS [facility] PRN Reason: Protocol Last Admin: 01/12/17 12:17 Dose: 6 units Insulin Detemir (Levemir Vial) 15 units SQ BID@0700,2200 [facility] Last Admin: 01/12/17 06:31 Dose: 15 units Labetalol HCl (Normodyne -) 400 mg PO TID [facility] Last Admin: 01/12/17 13:17 Dose: 400 mg Losartan Potassium (Cozaar -) 100 mg PO DAILY [facility] Last Admin: 01/12/17 09:32 Dose: 100 mg Oxycodone HCl (Roxicodone -) 10 mg PO Q6H PRN PRN Reason: PAIN Last Admin: 01/12/17 15:34 Dose: 10 mg Sevelamer Carbonate (Renvela -) 3,200 mg PO TIDCM [facility] Last Admin: 01/12/17 12:17 Dose: 3,200 mg Warfarin Sodium 5 mg/ Warfarin (Sodium 2 mg) 7 mg PO DAILY@1800 [facility] Last Admin: 01/11/17 17:56 Dose: 7 mg 26 year old woman with PMhx of ESRD on Hd (MWF), Hypertension, DM Type 1, Hx of DVT who presents with right sided pleuretic chest pain and found to have a suspected/small PE on CTA and volume expansion. Pt started to develop the pleuretic chest pain yesterday with dialysis. #Hypertensive Urgency Continue current BP meds low salt diet dietary compliance stressed to the patient #Right sided PE w/o evidence of DVT a/c as per primary team INR therapeutic #Worsening Anemia continue procrit with HD #ESRD on HD with Fluid overload will plan for isolated UF today with continued outpatient dialysis #Insulin dependent DM continue insulin as per primary #Renal Osteodystrophy renvela 3200mg TID with meals Thank you will follow Nathan Vo DO Problem List - Problems (1) Chest pain Code(s): R07.9 - CHEST PAIN, UNSPECIFIED Qualifiers: Chest pain type: pleurodynia Qualified Code(s): R07.81 - Pleurodynia; R07.81 - Pleurodynia (2) Pulmonary embolism Code(s): I26.99 - OTHER PULMONARY EMBOLISM WITHOUT ACUTE COR PULMONALE Qualifiers: Pulmonary embolism type: other Chronicity: acute Acute cor pulmonale presence: without acute cor pulmonale Qualified Code(s): I26.99 - Other pulmonary embolism without acute cor pulmonale; I26.99 - Other pulmonary embolism without acute cor pulmonale; I26.99 - Other pulmonary embolism without acute cor pulmonale; I26.99 - Other pulmonary embolism without acute cor pulmonale (3) ESRD (end stage renal disease) on dialysis Code(s): N18.6 - END STAGE RENAL DISEASE Z99.2 - DEPENDENCE ON RENAL DIALYSIS (4) HTN (hypertension) Code(s): I10 - ESSENTIAL (PRIMARY) HYPERTENSION Qualifiers: Hypertension type: renovascular hypertension Qualified Code(s): I15.0 - Renovascular hypertension; I15.0 - Renovascular hypertension; I15.0 - Renovascular hypertension (5) Anemia Code(s): D64.9 - ANEMIA, UNSPECIFIED Qualifiers: Folate deficiency anemia type: dietary (6) Diabetes mellitus, insulin dependent (IDDM), uncontrolled Code(s): E10.65 - TYPE 1 DIABETES MELLITUS WITH HYPERGLYCEMIA Qualifiers: Diabetes mellitus complication status: with unspecified complications Qualified Code(s): E10.8 - Type 1 diabetes mellitus with unspecified complications; E10.8 - Type 1 diabetes mellitus with unspecified complications; E10.8 - Type 1 diabetes mellitus with unspecified complications; E10.8 - Type 1 diabetes mellitus with unspecified complications; E10.65 - Type 1 diabetes mellitus with hyperglycemia; E10.65 - Type 1 diabetes mellitus with hyperglycemia; E10.65 - Type 1 diabetes mellitus with hyperglycemia; E10.65 - Type 1 diabetes mellitus with hyperglycemia
[2017-01-12] MEDS ORDERED: WARFARIN NA 5 MG TABLET (UD) ONE (17:18)
[2017-01-12] MEDS ORDERED: WARFARIN NA 2 MG TABLET (UD) ONE (17:19)
[2017-01-12] MEDS: WARFARIN NA 5 MG, WARFARIN NA 2 MG PO SCH (17:26)
[2017-01-13] MEDS: oxyCODONE HCL 5 MG TABLET PO PRN ×2 (03:56→20:01)
[2017-01-13] MEDS: GABAPENTIN 100 MG CAPSULE (FP) PO SCH ×3 (06:32→21:09)
[2017-01-13] MEDS: hydrALAZINE HCL 50 MG TABLET (FP) PO SCH ×3 (06:32→21:10)
[2017-01-13] MEDS: cloNIDine HCL 0.1 MG TABLET PO SCH ×3 (06:32→21:10)
[2017-01-13] MEDS: INSULIN DETEMIR 100 UNITS/ML MDV SQ SCH ×2 (06:33→21:12)
[2017-01-13] MEDS: INSULIN SLIDING SCALE (NOVOLOG) 1 VIAL SQ SCH ×4 (06:33→21:13)
[2017-01-13] MEDS: LABETALOL HCL 200 MG TABLET (FP) PO SCH ×3 (06:33→21:10)
[2017-01-13] MEDS ORDERED: INSULIN (NOVOLOG) ASPART 100 UNITS/ML 10ML VIAL ONE (06:41)
[2017-01-13] MEDS: SEVELAMER CARBONATE 800 MG TAB (FP) PO SCH ×3 (08:52→17:05)
[2017-01-13] MEDS ORDERED: EPOETIN ALFA 10,000 UNIT/1 ML VIAL IVPUSH ONE (09:42)
[2017-01-13] MEDS: LOSARTAN POTASSIUM 50 MG TABLET (FP) PO SCH (10:18)
--- NOTE | 2017-01-13 10:49 | PN ---
Progress Note (short form) - Note Progress Note: s: no cp sob palps dizzy; feels she has extra fluid in body still o: Vital Signs Period Temp Pulse Resp BP Sys/Ames Pulse Ox Last 24 Hr 98.1 F-99.5 F 54-98 18-20 134-158/77-102 98-98 nad no jvd rrr s1s2 no mrg ctabl nl eff aaox3 no le e/c/c abd nt nd pos bs no jaundice diaphoresis Current Medications Generic Name Dose Route Start Last Admin Trade Name Freq PRN Reason Stop Dose Admin Acetaminophen 325 mg 01/07/17 19:19 01/11/17 16:31 Tylenol - PO 325 mg Q6H PRN Administration PAIN Albuterol Sulfate 1 amp 01/12/17 06:47 01/12/17 23:10 Ventolin 0.083% Nebulizer Soln - NEB 1 amp Q6H PRN Administration SHORT OF BREATH/WHEEZING Clonidine 0.3 mg 01/07/17 22:00 01/13/17 06:32 Catapres - PO 0.3 mg TID [facility] Administration Epoetin Abiel 10,000 units 01/13/17 09:42 Epogen - IVPUSH 01/13/17 09:43 ONCE ONE Gabapentin 200 mg 01/07/17 22:00 01/13/17 06:32 Neurontin - PO 200 mg TID [facility] Administration Hydralazine HCl 50 mg 01/07/17 22:00 01/13/17 06:32 Apresoline - PO 50 mg TID [facility] Administration Hydralazine HCl 10 mg 01/07/17 19:19 Apresoline Injection - IVPUSH Q6H PRN HYPERTENSION Insulin Aspart 1 vial 01/07/17 22:00 01/13/17 06:33 Novolog Vial Sliding Scale - SQ 2 units ACHS [facility] Administration Protocol Insulin Detemir 15 units 01/07/17 22:00 01/13/17 06:33 Levemir Vial SQ 15 units BID@0700,2200 [facility] Administration Labetalol HCl 400 mg 01/07/17 22:00 01/13/17 06:33 Normodyne - PO 400 mg TID [facility] Administration Losartan Potassium 100 mg 01/08/17 10:00 01/13/17 10:18 Cozaar - PO 100 mg DAILY [facility] Administration Oxycodone HCl 10 mg 01/11/17 18:14 01/13/17 03:56 Roxicodone - PO 10 mg Q6H PRN Administration PAIN Sevelamer Carbonate 3,200 mg 01/08/17 08:00 01/13/17 08:52 Renvela - PO 3,200 mg TIDCM [facility] Administration Warfarin Sodium 5 mg/ Warfarin 7 mg 01/10/17 18:00 01/12/17 17:26 Sodium 2 mg PO 7 mg DAILY@1800 [facility] Administration CBC, BMP 01/12/17 05:10 01/11/17 09:30 cta chest: tiny rll pe, no chf ecg 12/30/16: sr, nl intervals, no ischemic changes tele: sr echo 12/2016: mod lvh, nl lv/rv, mod tr, mod phtn, mild pr, a/p: 26 f hx esrd on hd, htn, dm, pe/dvt, prior atrial myxoma s/p surgery here with cp. cp, PE: -sxs atypical for cardiac cp, resolved now -ecg, ce's unremarkable, no signs acs -possibly due to PE seen on cta here -cont ac for pe, inr dosing per pmd -no signs right heart strain on echo here, no atrial findings noted on echo that would indicate recurrence of myxoma. esrd: -cont hd per renal. edema continues to improve. htn: -acute elevation of bp during hd,prbcs. ?transfusion related. that required ICU mgm't and nicardipine drip. -bp improved. cont current po meds for now. - 01/11 bp elevation during HD, otherwise reasonable control. con't to monitor. - 01/12-: bp improved. stable from CV perspective, ok to d/c telemetry
--- NOTE | 2017-01-13 11:25 | PN ---
Progress Note (short form) - Note Progress Note: pt appealed discharge she says she has too much fluid to remove she has used a whole bottle of maple syrup brought from home in 3 days. Vital Signs - 24 hr 01/12/17 01/12/17 01/13/17 21:59 22:00 02:38 Temperature 98.3 F 99.5 F Pulse Rate 98 H 88 Respiratory 20 20 Rate Blood Pressure 144/80 153/84 O2 Sat by Pulse 98 98 Oximetry (%) 01/13/17 01/13/17 01/13/17 05:09 09:00 10:00 Temperature 98.1 F 98.3 F Pulse Rate 54 L 89 Respiratory 20 20 20 Rate Blood Pressure 134/77 153/108 O2 Sat by Pulse 96 Oximetry (%) 01/13/17 01/13/17 01/13/17 14:00 14:10 14:15 Temperature 97.6 F 98.7 F Pulse Rate 88 87 81 Respiratory 20 18 18 Rate Blood Pressure 144/94 151/101 163/105 O2 Sat by Pulse Oximetry (%) 01/13/17 01/13/17 01/13/17 14:45 15:15 15:45 Temperature Pulse Rate 88 87 99 H Respiratory 18 18 18 Rate Blood Pressure 144/94 136/81 139/84 O2 Sat by Pulse Oximetry (%) 01/13/17 01/13/17 01/13/17 16:15 16:45 17:15 Temperature Pulse Rate 90 85 88 Respiratory 18 18 18 Rate Blood Pressure 136/87 141/96 142/88 O2 Sat by Pulse Oximetry (%) Current Medications Generic Name Dose Route Start Last Admin Trade Name Freq PRN Reason Stop Dose Admin Acetaminophen 325 mg 01/07/17 19:19 01/13/17 20:10 Tylenol - PO 325 mg Q6H PRN Administration PAIN Albuterol Sulfate 1 amp 01/12/17 06:47 01/13/17 20:16 Ventolin 0.083% Nebulizer Soln - NEB 1 amp Q6H PRN Administration SHORT OF BREATH/WHEEZING Clonidine 0.3 mg 01/07/17 22:00 01/13/17 13:50 Catapres - PO 0.3 mg TID ROS[facility] Administration Gabapentin 200 mg 01/07/17 22:00 01/13/17 13:49 Neurontin - PO 200 mg TID [facility] Administration Hydralazine HCl 50 mg 01/07/17 22:00 01/13/17 13:49 Apresoline - PO 50 mg TID [facility] Administration Hydralazine HCl 10 mg 01/07/17 19:19 Apresoline Injection - IVPUSH Q6H PRN HYPERTENSION Insulin Aspart 1 vial 01/07/17 22:00 01/13/17 17:05 Novolog Vial Sliding Scale - SQ 2 units ACHS [facility] Administration Protocol Insulin Detemir 15 units 01/07/17 22:00 01/13/17 06:33 Levemir Vial SQ 15 units BID@0700,2200 [facility] Administration Labetalol HCl 400 mg 01/07/17 22:00 01/13/17 13:50 Normodyne - PO 400 mg TID [facility] Administration Losartan Potassium 100 mg 01/08/17 10:00 01/13/17 10:18 Cozaar - PO 100 mg DAILY [facility] Administration Oxycodone HCl 10 mg 01/11/17 18:14 01/13/17 20:01 Roxicodone - PO 10 mg Q6H PRN Administration PAIN Sertraline HCl 25 mg 01/13/17 14:15 01/13/17 17:05 Zoloft - PO 25 mg DAILY [facility] Administration Sevelamer Carbonate 3,200 mg 01/08/17 08:00 01/13/17 17:05 Renvela - PO 3,200 mg TIDCM [facility] Administration Warfarin Sodium 5 mg/ Warfarin 7 mg 01/10/17 18:00 01/13/17 17:16 Sodium 2 mg PO 7 mg DAILY@1800 [facility] Administration Laboratory Results - last 24 hr 01/12/17 01/13/17 01/13/17 21:12 04:05 12:20 WBC RBC Hgb Hct MCV MCH MCHC RDW Plt Count MPV PT with INR INR PTT (Actin FS) Sodium Potassium Chloride Carbon Dioxide Anion Gap BUN Creatinine POC Glucometer 264 167 133 Random Glucose Calcium 01/13/17 01/13/17 01/13/17 14:30 14:30 14:30 WBC 9.5 RBC 2.88 L Hgb 8.0 L Hct 25.1 L MCV 87.2 MCH 27.9 MCHC 32.0 RDW 17.4 H Plt Count 371 MPV 9.3 PT with INR INR PTT (Actin FS) 49.2 H Sodium 136 Potassium 5.3 H Chloride 96 L Carbon Dioxide 25 Anion Gap 15 BUN 86 H D Creatinine 5.3 H D POC Glucometer Random Glucose 174 H D Calcium 8.8 01/13/17 01/13/17 14:30 15:57 WBC RBC Hgb Hct MCV MCH MCHC RDW Plt Count MPV PT with INR 26.50 H INR 2.35 H PTT (Actin FS) Sodium Potassium Chloride Carbon Dioxide Anion Gap BUN Creatinine POC Glucometer 197 Random Glucose Calcium S1S2 RRR Lungs decreased Abd- soft, NT Edema+ PLAN continue with coumadin dialysis per renal again spoke to pt about dietary compliance -- she agreed to fluid restriction also appears to be depressed, pt not suicidal, but shes depressed with her entire situation -- agreed for meds Problem List - Problems (1) Chest pain Code(s): R07.9 - CHEST PAIN, UNSPECIFIED Qualifiers: Chest pain type: pleurodynia Qualified Code(s): R07.81 - Pleurodynia; R07.81 - Pleurodynia (2) Pulmonary embolism Code(s): I26.99 - OTHER PULMONARY EMBOLISM WITHOUT ACUTE COR PULMONALE Qualifiers: Pulmonary embolism type: other Chronicity: acute Acute cor pulmonale presence: without acute cor pulmonale Qualified Code(s): I26.99 - Other pulmonary embolism without acute cor pulmonale; I26.99 - Other pulmonary embolism without acute cor pulmonale; I26.99 - Other pulmonary embolism without acute cor pulmonale; I26.99 - Other pulmonary embolism without acute cor pulmonale (3) ESRD (end stage renal disease) on dialysis Code(s): N18.6 - END STAGE RENAL DISEASE Z99.2 - DEPENDENCE ON RENAL DIALYSIS (4) HTN (hypertension) Code(s): I10 - ESSENTIAL (PRIMARY) HYPERTENSION Qualifiers: Hypertension type: renovascular hypertension Qualified Code(s): I15.0 - Renovascular hypertension; I15.0 - Renovascular hypertension; I15.0 - Renovascular hypertension (5) Anemia Code(s): D64.9 - ANEMIA, UNSPECIFIED Qualifiers: Folate deficiency anemia type: dietary (6) Hypertensive urgency Code(s): I16.0 - HYPERTENSIVE URGENCY (7) Acute on chronic diastolic CHF (congestive heart failure) Code(s): I50.33 - ACUTE ON CHRONIC DIASTOLIC (CONGESTIVE) HEART FAILURE
--- NOTE | 2017-01-13 12:28 | PN ---
Progress Note (short form) - Note Progress Note: Renal Follow up for ESRD/Volume overload Pt seen and examined at the bedside no acute complaints s/p isolated UF yesterday for HD today Vital Signs Temperature 98.3 F 01/13/17 10:00 Pulse Rate 89 01/13/17 10:00 Respiratory Rate 20 01/13/17 10:00 Blood Pressure 153/108 01/13/17 10:00 O2 Sat by Pulse Oximetry (%) 96 01/13/17 09:00 Intake & Output 01/10/17 01/11/17 01/12/17 01/13/17 23:59 23:59 23:59 23:59 Intake Total 720 330 570 240 Balance 720 330 570 240 Weight 170 lb 8 oz 167 lb 2 oz NAD, awake and alert RRR, No M/R Dec BS at lung bases, no rales soft NT/ND 1+ edema in LE, no cyanosis CBC, BMP 01/12/17 05:10 01/11/17 09:30 Current Medications Acetaminophen (Tylenol -) 325 mg PO Q6H PRN PRN Reason: PAIN Last Admin: 01/11/17 16:31 Dose: 325 mg Albuterol Sulfate (Ventolin 0.083% Nebulizer Soln -) 1 amp NEB Q6H PRN PRN Reason: SHORT OF BREATH/WHEEZING Last Admin: 01/12/17 23:10 Dose: 1 amp Clonidine (Catapres -) 0.3 mg PO TID [facility] Last Admin: 01/13/17 06:32 Dose: 0.3 mg Epoetin Abiel (Epogen -) 10,000 units IVPUSH ONCE ONE Stop: 01/13/17 09:43 Gabapentin (Neurontin -) 200 mg PO TID [facility] Last Admin: 01/13/17 06:32 Dose: 200 mg Hydralazine HCl (Apresoline -) 50 mg PO TID [facility] Last Admin: 01/13/17 06:32 Dose: 50 mg Hydralazine HCl (Apresoline Injection -) 10 mg IVPUSH Q6H PRN PRN Reason: HYPERTENSION Insulin Aspart (Novolog Vial Sliding Scale -) 1 vial SQ ACHS [facility] PRN Reason: Protocol Last Admin: 01/13/17 06:33 Dose: 2 units Insulin Detemir (Levemir Vial) 15 units SQ BID@0700,2200 [facility] Last Admin: 01/13/17 06:33 Dose: 15 units Labetalol HCl (Normodyne -) 400 mg PO TID [facility] Last Admin: 01/13/17 06:33 Dose: 400 mg Losartan Potassium (Cozaar -) 100 mg PO DAILY [facility] Last Admin: 01/13/17 10:18 Dose: 100 mg Oxycodone HCl (Roxicodone -) 10 mg PO Q6H PRN PRN Reason: PAIN Last Admin: 01/13/17 03:56 Dose: 10 mg Sertraline HCl (Zoloft -) 25 mg PO DAILY [facility] Sevelamer Carbonate (Renvela -) 3,200 mg PO TIDCM [facility] Last Admin: 01/13/17 08:52 Dose: 3,200 mg Warfarin Sodium 5 mg/ Warfarin (Sodium 2 mg) 7 mg PO DAILY@1800 [facility] Last Admin: 01/12/17 17:26 Dose: 7 mg 26 year old woman with PMhx of ESRD on Hd (MWF), Hypertension, DM Type 1, Hx of DVT who presents with right sided pleuretic chest pain and found to have a suspected/small PE on CTA and volume expansion. Pt started to develop the pleuretic chest pain yesterday with dialysis. #ESRD on HD with Fluid overload Hd today with planned UF of 3.5L as tolerated Fluid restriction #Hypertensive Urgency Continue current BP meds low salt diet dietary compliance stressed to the patient #Right sided PE w/o evidence of DVT on Coumaidn #Worsening Anemia continue procrit with HD #Insulin dependent DM continue insulin as per primary #Renal Osteodystrophy renvela 3200mg TID with meals Thank you will follow Nathan Vo DO Problem List - Problems (1) Chest pain Code(s): R07.9 - CHEST PAIN, UNSPECIFIED Qualifiers: Chest pain type: pleurodynia Qualified Code(s): R07.81 - Pleurodynia; R07.81 - Pleurodynia (2) Pulmonary embolism Code(s): I26.99 - OTHER PULMONARY EMBOLISM WITHOUT ACUTE COR PULMONALE Qualifiers: Pulmonary embolism type: other Chronicity: acute Acute cor pulmonale presence: without acute cor pulmonale Qualified Code(s): I26.99 - Other pulmonary embolism without acute cor pulmonale; I26.99 - Other pulmonary embolism without acute cor pulmonale; I26.99 - Other pulmonary embolism without acute cor pulmonale; I26.99 - Other pulmonary embolism without acute cor pulmonale (3) ESRD (end stage renal disease) on dialysis Code(s): N18.6 - END STAGE RENAL DISEASE Z99.2 - DEPENDENCE ON RENAL DIALYSIS (4) HTN (hypertension) Code(s): I10 - ESSENTIAL (PRIMARY) HYPERTENSION Qualifiers: Hypertension type: renovascular hypertension Qualified Code(s): I15.0 - Renovascular hypertension; I15.0 - Renovascular hypertension; I15.0 - Renovascular hypertension (5) Anemia Code(s): D64.9 - ANEMIA, UNSPECIFIED Qualifiers: Folate deficiency anemia type: dietary (6) Diabetes mellitus, insulin dependent (IDDM), uncontrolled Code(s): E10.65 - TYPE 1 DIABETES MELLITUS WITH HYPERGLYCEMIA Qualifiers: Diabetes mellitus complication status: with unspecified complications Qualified Code(s): E10.8 - Type 1 diabetes mellitus with unspecified complications; E10.8 - Type 1 diabetes mellitus with unspecified complications; E10.8 - Type 1 diabetes mellitus with unspecified complications; E10.8 - Type 1 diabetes mellitus with unspecified complications; E10.65 - Type 1 diabetes mellitus with hyperglycemia; E10.65 - Type 1 diabetes mellitus with hyperglycemia; E10.65 - Type 1 diabetes mellitus with hyperglycemia; E10.65 - Type 1 diabetes mellitus with hyperglycemia
[2017-01-13] MEDS: ALBUTEROL SO4 0.083% IH SOL 2.5 MG/3 ML VIAL.NEB. NEB PRN ×2 (13:30→20:16)
[2017-01-13 15:29] LABS: MCH 27.9 pg (25.7-33.7); MEAN CELL VOLUME 87.2 fl (80-96); MEAN PLT VOLUME 9.3 fl (7.5-11.1); PLATELET COUNT 371 K/MM3 (134-434); RDW 17.4 % (11.6-15.6); WHITE BLOOD COUNT 9.5 K/mm3 (4.0-10.0)
[2017-01-13 15:34] LABS: ANION GAP 15 (8-16); CALCIUM 8.8 mg/dL (8.5-10.1); CO2 25 mmol/L (21-32); CREATININE 5.3 mg/dL (0.55-1.02); GLUCOSE,RANDOM 174 mg/dL (74-106)
[2017-01-13] MEDS ORDERED: WARFARIN NA 2 MG TABLET (UD) ONE (17:02)
[2017-01-13] MEDS ORDERED: WARFARIN NA 5 MG TABLET (UD) ONE (17:02)
[2017-01-13] MEDS: SERTRALINE HCL 25 MG TABLET (FP) PO SCH (17:05)
[2017-01-13 17:09] LABS: INR 2.35 (0.82-1.09); PROTHROMBIN TIME (PATIENT) 26.5 SEC (9.98-11.88)
[2017-01-13] MEDS: WARFARIN NA 5 MG, WARFARIN NA 2 MG PO SCH (17:16)
[2017-01-13] MEDS: ACETAMINOPHEN 325 MG TABLET (FP) PO PRN (20:10)
[2017-01-13] MEDS ORDERED: ACETAMINOPHEN 325 MG TABLET (FP) PO PRN (22:20)
[2017-01-14] MEDS: GABAPENTIN 100 MG CAPSULE (FP) PO SCH ×2 (05:55→15:39)
[2017-01-14] MEDS: LABETALOL HCL 200 MG TABLET (FP) PO SCH ×2 (05:55→15:40)
[2017-01-14] MEDS: hydrALAZINE HCL 50 MG TABLET (FP) PO SCH ×2 (05:55→15:40)
[2017-01-14] MEDS: cloNIDine HCL 0.1 MG TABLET PO SCH ×2 (05:56→15:41)
[2017-01-14] MEDS: oxyCODONE HCL 5 MG TABLET PO PRN ×2 (06:05→12:23)
[2017-01-14] MEDS: INSULIN SLIDING SCALE (NOVOLOG) 1 VIAL SQ SCH ×3 (06:34→17:14)
[2017-01-14] MEDS ORDERED: INSULIN DETEMIR 100 UNITS/ML MDV SQ SCH (07:00)
[2017-01-14] MEDS: SEVELAMER CARBONATE 800 MG TAB (FP) PO SCH ×4 (08:26→17:30)
[2017-01-14] MEDS ORDERED: DEXTROSE 50%-WATER - 25 GM/50 ML VIAL IVPUSH ONE ×2 (08:40→09:00)
--- NOTE | 2017-01-14 08:43 | HOSP ---
Subjective - Review of Symptoms Events since last encounter: Called by RN due to FSG of 35. Patient seen and examined. Patient is AAOx3. Asymptomatic at the moment. Chart reviewed. Pt has history of ESRD on HD, HTN, PE/DVT. Physical Examination Vital Signs: Vital Signs Temperature 98.1 F 01/14/17 06:17 Pulse Rate 93 H 01/14/17 06:17 Respiratory Rate 20 01/14/17 06:17 Blood Pressure 147/86 01/14/17 06:17 O2 Sat by Pulse Oximetry (%) 98 01/13/17 22:00 Labs: CBC, BMP 01/13/17 14:30 01/13/17 14:30 Hospitalist Encounter Assessment: 1 amp D50 ordered. RN to recheck FSG after. Visit type - Emergency Visit Emergency Visit: No - New Patient This patient is new to me today: No - Critical Care Critical Care patient: No
[2017-01-14] MEDS ORDERED: DEXTROSE 50%-WATER 25 GM/50 ML DISP.SYRIN IVPUSH ONE (09:00)
[2017-01-14] MEDS ORDERED: LOSARTAN POTASSIUM 50 MG TABLET (FP) PO SCH (10:00)
--- NOTE | 2017-01-14 10:03 | PN ---
Progress Note (short form) - Note Progress Note: Noted asymptomatic hypoglycemia this AM and was given D50. No CP or SOB. Intake & Output 01/11/17 01/12/17 01/13/17 01/14/17 23:59 23:59 23:59 23:59 Intake Total 330 570 600 110 Balance 330 570 600 110 Weight 170 lb 8 oz 167 lb 2 oz 165 lb 5 oz Last Vital Signs Temp Pulse Resp BP Pulse Ox 98.1 F 93 H 20 147/86 98 01/14/17 06:17 01/14/17 06:17 01/14/17 06:17 01/14/17 06:17 01/13/17 22:00 Active Medications Acetaminophen (Tylenol -) 325 mg PO Q6H PRN PRN Reason: PAIN Albuterol Sulfate (Ventolin 0.083% Nebulizer Soln -) 1 amp NEB Q6H PRN PRN Reason: SHORT OF BREATH/WHEEZING Last Admin: 01/13/17 20:16 Dose: 1 amp Clonidine (Catapres -) 0.3 mg PO TID [facility] Last Admin: 01/14/17 05:56 Dose: 0.3 mg Gabapentin (Neurontin -) 200 mg PO TID [facility] Last Admin: 01/14/17 05:55 Dose: 200 mg Hydralazine HCl (Apresoline -) 50 mg PO TID [facility] Last Admin: 01/14/17 05:55 Dose: 50 mg Insulin Aspart (Novolog Vial Sliding Scale -) 1 vial SQ ACHS [facility] PRN Reason: Protocol Last Admin: 01/14/17 06:34 Dose: Not Given Insulin Detemir (Levemir Vial) 15 units SQ BID@0700,2200 [facility] Last Admin: 01/14/17 06:35 Dose: 15 units Labetalol HCl (Normodyne -) 400 mg PO TID [facility] Last Admin: 01/14/17 05:55 Dose: 400 mg Losartan Potassium (Cozaar -) 100 mg PO DAILY [facility] Oxycodone HCl (Roxicodone -) 10 mg PO Q6H PRN PRN Reason: PAIN Last Admin: 01/14/17 06:05 Dose: 10 mg Sertraline HCl (Zoloft -) 25 mg PO DAILY [facility] Last Admin: 01/13/17 17:05 Dose: 25 mg Sevelamer Carbonate (Renvela -) 3,200 mg PO TIDCM [facility] Last Admin: 01/14/17 08:26 Dose: 3,200 mg Warfarin Sodium 5 mg/ Warfarin (Sodium 2 mg) 7 mg PO DAILY@1800 [facility] Last Admin: 01/13/17 17:16 Dose: 7 mg Gen: Awake and alert Heart: RRR Lung: decreased breath sounds at the bases Abd: soft, nontender Ext: + edema Laboratory Results - last 24 hr 01/13/17 01/13/17 01/13/17 12:20 14:30 14:30 WBC 9.5 RBC 2.88 L Hgb 8.0 L Hct 25.1 L MCV 87.2 MCH 27.9 MCHC 32.0 RDW 17.4 H Plt Count 371 MPV 9.3 PT with INR INR PTT (Actin FS) 49.2 H Sodium Potassium Chloride Carbon Dioxide Anion Gap BUN Creatinine POC Glucometer 133 Random Glucose Calcium 01/13/17 01/13/17 01/13/17 14:30 14:30 15:57 WBC RBC Hgb Hct MCV MCH MCHC RDW Plt Count MPV PT with INR 26.50 H INR 2.35 H PTT (Actin FS) Sodium 136 Potassium 5.3 H Chloride 96 L Carbon Dioxide 25 Anion Gap 15 BUN 86 H D Creatinine 5.3 H D POC Glucometer 197 Random Glucose 174 H D Calcium 8.8 01/13/17 01/14/17 01/14/17 21:12 05:38 08:32 WBC RBC Hgb Hct MCV MCH MCHC RDW Plt Count MPV PT with INR INR PTT (Actin FS) Sodium Potassium Chloride Carbon Dioxide Anion Gap BUN Creatinine POC Glucometer 304 79 35 Random Glucose Calcium 01/14/17 09:18 WBC RBC Hgb Hct MCV MCH MCHC RDW Plt Count MPV PT with INR INR PTT (Actin FS) Sodium Potassium Chloride Carbon Dioxide Anion Gap BUN Creatinine POC Glucometer 158 Random Glucose Calcium ASSESSMENT AND PLAN: Hypertensive Urgency Suspected Hypertensive Encephalopathy - now resolved (?) Acute RLL Pulmonary Embolism ESRD on HD Pulmonary HTN HTN DM - BP meds as ordered - Coumadin - HD per renal - D/C planning Dr Ballesteros
[2017-01-14] MEDS: SERTRALINE HCL 25 MG TABLET (FP) PO SCH (11:40)
[2017-01-14] MEDS: ALBUTEROL SO4 0.083% IH SOL 2.5 MG/3 ML VIAL.NEB. NEB PRN (12:16)
--- NOTE | 2017-01-14 12:20 | PN ---
Progress Note (short form) - Note Progress Note: pt appealed discharge she says she has too much fluid to remove she has used a whole bottle of maple syrup brought from home in 3 days. family at bedside Pt was hypotensive and hypoglycemic this AM-- received D50 Feels better now Vital Signs - 24 hr 01/13/17 01/13/17 01/13/17 14:00 14:10 14:15 Temperature 97.6 F 98.7 F Pulse Rate 88 87 81 Respiratory 20 18 18 Rate Blood Pressure 144/94 151/101 163/105 O2 Sat by Pulse Oximetry (%) 01/13/17 01/13/17 01/13/17 14:45 15:15 15:45 Temperature Pulse Rate 88 87 99 H Respiratory 18 18 18 Rate Blood Pressure 144/94 136/81 139/84 O2 Sat by Pulse Oximetry (%) 01/13/17 01/13/17 01/13/17 16:15 16:45 17:15 Temperature Pulse Rate 90 85 88 Respiratory 18 18 18 Rate Blood Pressure 136/87 141/96 142/88 O2 Sat by Pulse Oximetry (%) 01/13/17 01/13/17 01/13/17 17:45 18:15 18:20 Temperature Pulse Rate 94 H 94 H 87 Respiratory 18 18 18 Rate Blood Pressure 167/94 149/92 151/66 O2 Sat by Pulse Oximetry (%) 01/13/17 01/13/17 01/13/17 20:43 20:50 22:00 Temperature 99.5 F 99.5 F 99.2 F Pulse Rate 78 125 H 106 H Respiratory 22 18 21 Rate Blood Pressure 183/115 190/115 158/99 O2 Sat by Pulse 96 95 98 Oximetry (%) 01/14/17 01/14/17 01/14/17 06:17 09:00 10:00 Temperature 98.1 F 98 F Pulse Rate 93 H 84 Respiratory 20 20 20 Rate Blood Pressure 147/86 112/59 O2 Sat by Pulse 96 96 Oximetry (%) 01/14/17 01/14/17 01/14/17 10:20 11:42 12:16 Temperature Pulse Rate 83 83 82 Respiratory 20 20 Rate Blood Pressure 102/58 137/83 O2 Sat by Pulse 95 Oximetry (%) Current Medications Generic Name Dose Route Start Last Admin Trade Name Freq PRN Reason Stop Dose Admin Acetaminophen 325 mg 01/13/17 22:20 Tylenol - PO Q6H PRN PAIN Albuterol Sulfate 1 amp 01/12/17 06:47 01/14/17 12:16 Ventolin 0.083% Nebulizer Soln - NEB 1 amp Q6H PRN Administration SHORT OF BREATH/WHEEZING Clonidine 0.3 mg 01/14/17 06:00 01/14/17 05:56 Catapres - PO 0.3 mg TID [facility] Administration Gabapentin 200 mg 01/14/17 06:00 01/14/17 05:55 Neurontin - PO 200 mg TID [facility] Administration Hydralazine HCl 50 mg 01/14/17 06:00 01/14/17 05:55 Apresoline - PO 50 mg TID [facility] Administration Insulin Aspart 1 vial 01/14/17 07:00 01/14/17 11:35 Novolog Vial Sliding Scale - SQ Not Given ACHS [facility] Protocol Insulin Detemir 15 units 01/14/17 07:00 01/14/17 06:35 Levemir Vial SQ 15 units BID@0700,2200 [facility] Administration Labetalol HCl 400 mg 01/14/17 06:00 01/14/17 05:55 Normodyne - PO 400 mg TID [facility] Administration Losartan Potassium 100 mg 01/14/17 10:00 01/14/17 11:40 Cozaar - PO 100 mg DAILY [facility] Administration Oxycodone HCl 10 mg 01/11/17 18:14 01/14/17 06:05 Roxicodone - PO 10 mg Q6H PRN Administration PAIN Sertraline HCl 25 mg 01/13/17 14:15 01/14/17 11:40 Zoloft - PO 25 mg DAILY [facility] Administration Sevelamer Carbonate 3,200 mg 01/14/17 08:00 01/14/17 08:26 Renvela - PO 3,200 mg TIDCM [facility] Administration Warfarin Sodium 5 mg/ Warfarin 7 mg 01/10/17 18:00 01/13/17 17:16 Sodium 2 mg PO 7 mg DAILY@1800 [facility] Administration Abnormal Lab Results 01/13/17 01/13/17 01/13/17 14:30 14:30 14:30 RBC 2.88 L Hgb 8.0 L Hct 25.1 L RDW 17.4 H PT with INR INR PTT (Actin FS) 49.2 H Potassium 5.3 H Chloride 96 L BUN 86 H D Creatinine 5.3 H D Random Glucose 174 H D 01/13/17 14:30 RBC Hgb Hct RDW PT with INR 26.50 H INR 2.35 H PTT (Actin FS) Potassium Chloride BUN Creatinine Random Glucose S1S2 RRR Lungs decreased Abd- soft, NT Edema+ PLAN continue with coumadin dialysis per renal again spoke to pt about dietary compliance -- she agreed to fluid restriction also appears to be depressed, pt not suicidal, but shes depressed with her entire situation -- agreed for meds d/w pt and family, mother-- about STR-- she is in agreement for STR-- 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 with 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 case repairer Problem List - Problems (1) Chest pain Code(s): R07.9 - CHEST PAIN, UNSPECIFIED Qualifiers: Chest pain type: pleurodynia Qualified Code(s): R07.81 - Pleurodynia; R07.81 - Pleurodynia (2) Pulmonary embolism Code(s): I26.99 - OTHER PULMONARY EMBOLISM WITHOUT ACUTE COR PULMONALE Qualifiers: Pulmonary embolism type: other Chronicity: acute Acute cor pulmonale presence: without acute cor pulmonale Qualified Code(s): I26.99 - Other pulmonary embolism without acute cor pulmonale; I26.99 - Other pulmonary embolism without acute cor pulmonale; I26.99 - Other pulmonary embolism without acute cor pulmonale; I26.99 - Other pulmonary embolism without acute cor pulmonale (3) ESRD (end stage renal disease) on dialysis Code(s): N18.6 - END STAGE RENAL DISEASE Z99.2 - DEPENDENCE ON RENAL DIALYSIS (4) HTN (hypertension) Code(s): I10 - ESSENTIAL (PRIMARY) HYPERTENSION Qualifiers: Hypertension type: renovascular hypertension Qualified Code(s): I15.0 - Renovascular hypertension; I15.0 - Renovascular hypertension; I15.0 - Renovascular hypertension (5) Anemia Code(s): D64.9 - ANEMIA, UNSPECIFIED Qualifiers: Folate deficiency anemia type: dietary (6) Hypertensive urgency Code(s): I16.0 - HYPERTENSIVE URGENCY (7) Acute on chronic diastolic CHF (congestive heart failure) Code(s): I50.33 - ACUTE ON CHRONIC DIASTOLIC (CONGESTIVE) HEART FAILURE
[2017-01-14 13:53] VITALS: BP 143/75; PULSE 85; TEMP 98
[2017-01-14] MEDS ORDERED: PT OWN MED DRAWER 7, Y5N ONE (15:27)
--- NOTE | 2017-01-14 15:47 | PN ---
Progress Note (short form) - Note Progress Note: Renal Follow up for ESRD/Volume overload Pt seen and examined at the bedside awake and alert reports feeling dizzy no sob, chest pain noted to be hypoglycemia earlier but just ate Polish toast with maple syrup just now Vital Signs Temperature 98.0 F 01/14/17 13:51 Pulse Rate 85 01/14/17 13:51 Respiratory Rate 17 01/14/17 13:51 Blood Pressure 143/75 01/14/17 13:51 O2 Sat by Pulse Oximetry (%) 95 01/14/17 12:16 Intake & Output 01/11/17 01/12/17 01/13/17 01/14/17 23:59 23:59 23:59 23:59 Intake Total 330 570 600 310 Output Total 0 Balance 330 570 600 310 Weight 170 lb 8 oz 167 lb 2 oz 165 lb 5 oz NAD, awake and alert RRR, No M/R Dec BS at lung bases, no rales soft NT/ND 1+ edema in LE, no cyanosis CBC, BMP 01/13/17 14:30 01/13/17 14:30 Current Medications Acetaminophen (Tylenol -) 325 mg PO Q6H PRN PRN Reason: PAIN Last Admin: 01/14/17 12:24 Dose: 325 mg Albuterol Sulfate (Ventolin 0.083% Nebulizer Soln -) 1 amp NEB Q6H PRN PRN Reason: SHORT OF BREATH/WHEEZING Last Admin: 01/14/17 12:16 Dose: 1 amp Clonidine (Catapres -) 0.3 mg PO TID [facility] Last Admin: 01/14/17 05:56 Dose: 0.3 mg Gabapentin (Neurontin -) 200 mg PO TID [facility] Last Admin: 01/14/17 05:55 Dose: 200 mg Hydralazine HCl (Apresoline -) 50 mg PO TID [facility] Last Admin: 01/14/17 05:55 Dose: 50 mg Insulin Aspart (Novolog Vial Sliding Scale -) 1 vial SQ ACHS [facility] PRN Reason: Protocol Last Admin: 01/14/17 11:35 Dose: Not Given Insulin Detemir (Levemir Vial) 15 units SQ BID@0700,2200 [facility] Last Admin: 01/14/17 06:35 Dose: 15 units Labetalol HCl (Normodyne -) 400 mg PO TID [facility] Last Admin: 01/14/17 05:55 Dose: 400 mg Losartan Potassium (Cozaar -) 100 mg PO DAILY [facility] Last Admin: 01/14/17 11:40 Dose: 100 mg Oxycodone HCl (Roxicodone -) 10 mg PO Q6H PRN PRN Reason: PAIN Last Admin: 01/14/17 12:23 Dose: 10 mg Sertraline HCl (Zoloft -) 25 mg PO DAILY [facility] Last Admin: 01/14/17 11:40 Dose: 25 mg Sevelamer Carbonate (Renvela -) 3,200 mg PO TIDCM [facility] Last Admin: 01/14/17 12:31 Dose: 3,200 mg Warfarin Sodium 5 mg/ Warfarin (Sodium 2 mg) 7 mg PO DAILY@1800 [facility] Last Admin: 01/13/17 17:16 Dose: 7 mg 26 year old woman with PMhx of ESRD on Hd (MWF), Hypertension, DM Type 1, Hx of DVT who presents with right sided pleuretic chest pain and found to have a suspected/small PE on CTA and volume expansion. Pt started to develop the pleuretic chest pain yesterday with dialysis. #ESRD on HD with Fluid overload no aucte indication for dialysis today next treatment planned for tomorrow (as outpatient) #Hypertensive Urgency BP controlled now #Right sided PE w/o evidence of DVT on Coumaidn #Worsening Anemia continue procrit with HD #Insulin dependent DM continue insulin as per primary #Renal Osteodystrophy renvela 3200mg TID with meals Thank you will follow Nathan Vo DO Problem List - Problems (1) Chest pain Code(s): R07.9 - CHEST PAIN, UNSPECIFIED Qualifiers: Chest pain type: pleurodynia Qualified Code(s): R07.81 - Pleurodynia; R07.81 - Pleurodynia (2) Pulmonary embolism Code(s): I26.99 - OTHER PULMONARY EMBOLISM WITHOUT ACUTE COR PULMONALE Qualifiers: Pulmonary embolism type: other Chronicity: acute Acute cor pulmonale presence: without acute cor pulmonale Qualified Code(s): I26.99 - Other pulmonary embolism without acute cor pulmonale; I26.99 - Other pulmonary embolism without acute cor pulmonale; I26.99 - Other pulmonary embolism without acute cor pulmonale; I26.99 - Other pulmonary embolism without acute cor pulmonale (3) ESRD (end stage renal disease) on dialysis Code(s): N18.6 - END STAGE RENAL DISEASE Z99.2 - DEPENDENCE ON RENAL DIALYSIS (4) HTN (hypertension) Code(s): I10 - ESSENTIAL (PRIMARY) HYPERTENSION Qualifiers: Hypertension type: renovascular hypertension Qualified Code(s): I15.0 - Renovascular hypertension; I15.0 - Renovascular hypertension; I15.0 - Renovascular hypertension (5) Anemia Code(s): D64.9 - ANEMIA, UNSPECIFIED Qualifiers: Folate deficiency anemia type: dietary (6) Diabetes mellitus, insulin dependent (IDDM), uncontrolled Code(s): E10.65 - TYPE 1 DIABETES MELLITUS WITH HYPERGLYCEMIA Qualifiers: Diabetes mellitus complication status: with unspecified complications Qualified Code(s): E10.8 - Type 1 diabetes mellitus with unspecified complications; E10.8 - Type 1 diabetes mellitus with unspecified complications; E10.8 - Type 1 diabetes mellitus with unspecified complications; E10.8 - Type 1 diabetes mellitus with unspecified complications; E10.65 - Type 1 diabetes mellitus with hyperglycemia; E10.65 - Type 1 diabetes mellitus with hyperglycemia; E10.65 - Type 1 diabetes mellitus with hyperglycemia; E10.65 - Type 1 diabetes mellitus with hyperglycemia
[2017-01-14] MEDS ORDERED: WARFARIN NA 2 MG TABLET (UD) ONE (17:28)
[2017-01-14] MEDS ORDERED: WARFARIN NA 5 MG TABLET (UD) ONE (17:28)
[2017-01-14] MEDS: WARFARIN NA 5 MG, WARFARIN NA 2 MG PO SCH (17:30)
== END 2017-01-14 18:19 | DRG 175 ==
LOC: JER 18:15 → JERBED 23:12 → UNDOADMIN 23:58 → J2W 12-31 03:00 → J4W 01-01 19:50 → J7W 01-04 15:53 → JICU 01-06 12:43 → J2W 01-08 22:55 → J4W 01-09 01:20 → J6S 01-13 22:19
PROVIDERS: ADMIT Internal Medicine; ATTEND Internal Medicine
PROC: 30233H1 Transfusion of Nonautologous Whole Blood into Peripheral Vein, Percutaneous Approach (ICD-10-PCS; 2017-01-07)
PROC: 5A1D70Z Performance of Urinary Filtration, Intermittent, Less than 6 Hours Per Day (ICD-10-PCS; principal; 2017-01-08)
DX: I26.99 Other pulmonary embolism without acute cor pulmonale (principal); N18.6 End stage renal disease; I50.33 Acute on chronic diastolic (congestive) heart failure; I13.2 Hypertensive heart and chronic kidney disease with heart failure and with stage 5 chronic kidney disease, or end stage renal disease; G40.89 Other seizures; D63.1 Anemia in chronic kidney disease; I16.0 Hypertensive urgency; E11.22 Type 2 diabetes mellitus with diabetic chronic kidney disease; Z99.2 Dependence on renal dialysis; Z79.4 Long term (current) use of insulin; Z86.718 Personal history of other venous thrombosis and embolism; I15.0 Renovascular hypertension; M79.651 Pain in right thigh; N25.0 Renal osteodystrophy; I27.20 Pulmonary hypertension, unspecified; R51 Headache
CPT/HCPCS: 36415; 36430; 70450-TC; 71010-TC; 71275-TC; 80048; 80053; 80076; 82553; 82977; 83735; 83880; 84100; 84484; 84703; 85025; 85027; 85379; 85610; 85730; 86850; 86900; 86901; 86922; 93005; 93010; 93306-TC; 93971-TC; 94640; 97116-GP; 99284-25; J0885; J1644; P9038; P9058

== ENCOUNTER 2017-01-15 18:21 | Emergency (ER) | payer OTHER ==
[2017-01-15 18:36] VITALS: BP 113/59; TEMP 98.9; BMI 23.7
--- NOTE | 2017-01-15 19:14 | PDOC ---
History of Present Illness - History of Present Illness Initial Comments: 01/15/17 19:13 Ms. Sawyer is a 26 yo female with a significant past medical history of recent discharge yesterday after PE as well as anemia requiring multiple transfusions, IDDM, ESRD (MWF), PE, and DVT who presents to the emergency department with a 45 minute history of severe chest pain in the midline. She rates the pain as very severe and says that she is having trouble breathing and is a little dizzy as well. The patient denies headache. Denies fever, chills, nausea, vomit, diarrhea and constipation. Denies dysuria, frequency, urgency and hematuria. Allergies: NKDA <Trell Jones - Last Filed: 01/16/17 01:07> <Sophy Gavin - Last Filed: 01/17/17 04:17> - General Chief Complaint: Chest Pain Stated Complaint: CHEST PAIN Time Seen by Provider: 01/15/17 19:12 Past History - Past Medical History Anemia: Yes Asthma: No Cancer: No Cardiac Disorders: No CVA: No COPD: No CHF: No Diabetes: Yes (15 yrs Insulin dependent) Dialysis: Yes (M/W/F) [facility]: [facility] HTN: Yes Hypercholesterolemia: No Kidney Stones: (ESRD, Dialysis Wed, W, F, Left arm Fistula) Seizures: Yes (Several yrs ago, no medication) Thyroid Disease: No - Surgical History Abdominal Surgery: No Cardiac Surgery: Yes (myxoma removed 2013) Cholecystectomy: Yes Lung Surgery: No Neurologic Surgery: No Orthopedic Surgery: Yes - Immunization History Immunization Up to Date: Yes - Suicide/Smoking/Psychosocial Hx Smoking Status: No Smoking History: Never smoked Have you smoked in the past 12 months: No Number of Cigarettes Smoked Daily: 10 Information on smoking cessation initiated: No Hx Alcohol Use: No Drug/Substance Use Hx: No Substance Use Type: None Hx Substance Use Treatment: No <Trell Jones - Last Filed: 01/16/17 01:07> <Sophy Gavin - Last Filed: 01/17/17 04:17> - Past Medical History Allergies/Adverse Reactions: Allergies Allergy/AdvReac Type Severity Reaction Status Date / Time No Known Drug Allergies Allergy Verified 01/17/17 03:49 Home Medications: Ambulatory Orders Gabapentin 100 mg PO TID 03/11/16 Sevelamer Carbonate [Renvela -] 1,600 mg PO TIDCM #60 tab 07/14/16 Oxycodone HCl/Acetaminophen [Percocet 5-325 mg Tablet] 1 tab PO Q6H PRN #60 tablet MDD 4 08/11/16 Acetaminophen [Tylenol .Regular Strength -] 325 mg PO Q6H PRN #0 tablet Insulin Lispro [Humalog Kwikpen U-100] 0 unit SQ TID 12/21/16 Losartan Potassium [Cozaar -] 100 mg PO DAILY 12/21/16 Insulin (Levemir) [Levemir Flexpen -] 15 units SQ BID #5 pen 12/24/16 Metoclopramide HCl [Reglan -] 5 mg PO TIDAC #90 tablet 12/24/16 Clonidine HCl [Catapres -] 0.3 mg PO TID tablet 12/26/16 Labetalol HCl [Normodyne -] 400 mg PO TID #60 tablet 12/26/16 Nifedipine ER [Procardia XL -] 90 mg PO DAILY #60 tab 12/26/16 Hydralazine HCl [Apresoline -] 50 mg PO TID #60 tablet 01/12/17 Warfarin Na [Coumadin -] 7 mg PO DAILY@1800 #30 tablet 01/12/17 Review of Systems - Review of Systems Comments:: 01/15/17 19:13 GENERAL/CONSTITUTIONAL: No fever or chills. No weakness. HEAD, EYES, EARS, NOSE AND THROAT: No change in vision. No ear pain or discharge. No sore throat. CARDIOVASCULAR: +Severe chest pain in the midline with shortness of breath for 45 minutes and dizziness. RESPIRATORY: No cough, wheezing, or hemoptysis. GASTROINTESTINAL: No nausea, vomiting, diarrhea or constipation. GENITOURINARY: No dysuria, frequency, or change in urination. MUSCULOSKELETAL: No joint or muscle swelling or pain. No neck or back pain. SKIN: No rash NEUROLOGIC: No headache, vertigo, loss of consciousness, or change in strength/ sensation. ENDOCRINE: No increased thirst. No abnormal weight change HEMATOLOGIC/LYMPHATIC: No anemia, easy bleeding, or history of blood clots. ALLERGIC/IMMUNOLOGIC: No hives or skin allergy. <Trell Jones - Last Filed: 01/16/17 01:07> *Physical Exam - Vital Signs Last Vital Signs Temp Pulse Resp BP Pulse Ox 98.9 F 77 20 113/59 97 01/15/17 18:32 01/15/17 19:01 01/15/17 18:32 01/15/17 18:32 01/15/17 19:01 - Physical Exam Comments: 01/15/17 19:14 GENERAL: +Patient acutely anxious and complaining of shortness of breath with wheezes that appear to be coming from the upper respiratory system. Awake, alert , and fully oriented. HEAD: No signs of trauma, normocephalic, atraumatic EYES: PERRLA, EOMI, sclera anicteric, conjunctiva clear ENT: Auricles normal inspection, hearing grossly normal, nares patent, oropharynx clear without exudates. Moist mucosa NECK: Normal ROM, supple, no lymphadenopathy, JVD, or masses LUNGS: No distress, speaks full sentences, clear to auscultation bilaterally HEART: Regular rate and rhythm, normal S1 and S2, no murmurs, rubs or gallops, peripheral pulses normal and equal bilaterally. ABDOMEN: Soft, nontender, normoactive bowel sounds. No guarding, no rebound. No masses EXTREMITIES: Normal inspection, Normal range of motion, no edema. No clubbing or cyanosis. NEUROLOGICAL: Cranial nerves II through XII grossly intact. Normal speech, normal gait, no focal sensorimotor deficits SKIN: Warm, Dry, normal turgor, no rashes or lesions noted. <Trell Jones - Last Filed: 01/16/17 01:07> - Vital Signs Last Vital Signs Temp Pulse Resp BP Pulse Ox 98.9 F 82 18 113/59 100 01/15/17 18:32 01/15/17 20:35 01/15/17 20:35 01/15/17 18:32 01/15/17 20:35 <Sophy Gavin - Last Filed: 01/17/17 04:17> ED Treatment Course - LABORATORY CBC & Chemistry Diagram: 01/15/17 19:00 01/15/17 20:44 <Trell Jones - Last Filed: 01/16/17 01:07> - LABORATORY CBC & Chemistry Diagram: 01/15/17 19:00 01/15/17 20:44 - ADDITIONAL ORDERS Additional order review: 01/15/17 19:00 RBC 2.90 L MCV 87.8 MCHC 31.5 L RDW 17.7 H MPV 9.9 Neutrophils % 89.5 H D Lymphocytes % 3.2 L D Monocytes % 6.7 Eosinophils % 0.2 D Basophils % 0.4 <Sophy Gavin - Last Filed: 01/17/17 04:17> Medical Decision Making - Medical Decision Making 01/16/17 01:08 Patient resting comfortably in bed. Labs as below. BNP trending down, INR therapeutic. Chest pain pleuritic, transient, and atypical. Will discharge with instructions to return as needed for increased pain, fever, or other concerning developments. Laboratory Results - last 24 hr 01/15/17 01/15/17 01/15/17 19:00 19:00 19:00 WBC 11.7 H RBC 2.90 L Hgb 8.0 L Hct 25.4 L MCV 87.8 MCH 27.7 MCHC 31.5 L RDW 17.7 H Plt Count 410 MPV 9.9 Neutrophils % 89.5 H D Lymphocytes % 3.2 L D Monocytes % 6.7 Eosinophils % 0.2 D Basophils % 0.4 PT with INR 43.60 H INR 3.86 H D PTT (Actin FS) 44.6 H VBG pH POC VBG pCO2 POC VBG pO2 Mixed VBG HCO3 Sodium Potassium Chloride Carbon Dioxide Anion Gap BUN Creatinine Creat Clearance w eGFR Random Glucose Calcium Magnesium Total Bilirubin AST ALT Alkaline Phosphatase Creatine Kinase Troponin I B-Natriuretic Peptide Cancelled Total Protein Albumin Lipase Beta HCG, Quant 01/15/17 01/15/17 01/15/17 19:10 19:45 20:44 WBC RBC Hgb Hct MCV MCH MCHC RDW Plt Count MPV Neutrophils % Lymphocytes % Monocytes % Eosinophils % Basophils % PT with INR INR PTT (Actin FS) VBG pH 7.30 L POC VBG pCO2 44.7 D POC VBG pO2 54.6 H D Mixed VBG HCO3 21.5 Sodium Cancelled 134 L Potassium Cancelled 4.9 Chloride Cancelled 94 L Carbon Dioxide Cancelled 17 L D Anion Gap Cancelled 23 H BUN Cancelled 50 H D Creatinine Cancelled 3.4 H D Creat Clearance w eGFR Cancelled 16.20 Random Glucose Cancelled 305 H* D Calcium Cancelled 8.7 Magnesium Cancelled Total Bilirubin Cancelled 2.3 H D AST Cancelled 50 H D ALT Cancelled 30 D Alkaline Phosphatase Cancelled 1873 H Creatine Kinase Cancelled Troponin I Cancelled B-Natriuretic Peptide Total Protein Cancelled 7.5 Albumin Cancelled 2.7 L Lipase Cancelled Beta HCG, Quant Cancelled 01/15/17 01/15/17 01/15/17 20:44 20:44 23:40 WBC RBC Hgb Hct MCV MCH MCHC RDW Plt Count MPV Neutrophils % Lymphocytes % Monocytes % Eosinophils % Basophils % PT with INR INR PTT (Actin FS) VBG pH POC VBG pCO2 POC VBG pO2 Mixed VBG HCO3 Sodium Potassium Chloride Carbon Dioxide Anion Gap BUN Creatinine Creat Clearance w eGFR Random Glucose Calcium Magnesium Total Bilirubin AST ALT Alkaline Phosphatase Creatine Kinase Cancelled 135 Troponin I Cancelled < 0.02 B-Natriuretic Peptide 03534.77 H Total Protein Albumin Lipase Beta HCG, Quant <Trell Jones - Last Filed: 01/16/17 01:07> - Medical Decision Making 01/17/17 04:17 01/17/17 04:17 <Sophy Gavin - Last Filed: 01/17/17 04:17> *DC/Admit/Observation/Transfer <Trell Jones - Last Filed: 01/16/17 01:07> <Sophy Gavin - Last Filed: 01/17/17 04:17> Diagnosis at time of Disposition: Chest pain Qualifiers: Chest pain type: unspecified Qualified Code(s): R07.9 - Chest pain, unspecified Pulmonary embolism Qualifiers: Pulmonary embolism type: other Chronicity: chronic Acute cor pulmonale presence : without acute cor pulmonale Qualified Code(s): I27.82 - Chronic pulmonary embolism - Discharge Dispostion Disposition: HOME Condition at time of disposition: Good - Patient Instructions Printed Discharge Instructions: DI for Atypical Chest Pain
[2017-01-15 19:26] LABS: BASOPHIL 0.4 % (0-2.0); EOSINOPHIL 0.2 % (0-4.5); MCH 27.7 pg (25.7-33.7); MCHC 31.5 g/dl (32.0-36.0); MEAN CELL VOLUME 87.8 fl (80-96); MEAN PLT VOLUME 9.9 fl (7.5-11.1); NEUTROPHILS 89.5 % (42.8-82.8); PLATELET COUNT 410 K/MM3 (134-434); RDW 17.7 % (11.6-15.6); WHITE BLOOD COUNT 11.7 K/mm3 (4.0-10.0)
[2017-01-15 19:41] LABS: INR 3.86 (0.82-1.09); PROTHROMBIN TIME (PATIENT) 43.6 SEC (9.98-11.88)
[2017-01-15 19:44] LABS: ACTIVATED PTT 44.6 SECONDS (26.9-34.4)
--- NOTE | 2017-01-15 19:52 | PDOC ---
Attending Attestation - Resident Resident Name: Trell Jonse - ED Attending Attestation I have performed the following: I have examined & evaluated the patient, The case was reviewed & discussed with the resident, I agree w/resident's findings & plan, Exceptions are as noted - HPI HPI: 01/15/17 19:51 26 yo, dc this am after dx of PE was a dialysis when she developed sharp chest pain and 911 was summoned. - Physicial Exam PE: 01/15/17 19:52 VSS NAD No Hypoxia - Medical Decision Making 01/15/17 19:[address] Jones's Assessment and plan
[2017-01-15 20:03] LABS: VENOUS PH 7.3 (7.32-7.42)
[2017-01-15 20:04] LABS: VENOUS BLOOD GAS HCO3 21.5 meq/L (19-25)
[2017-01-15 21:23] LABS: ALBUMIN 2.7 g/dl (3.4-5.0); ANION GAP 23 (8-16); BILIRUBIN,TOTAL 2.3 mg/dL (0.2-1.0); CALCIUM 8.7 mg/dL (8.5-10.1); CO2 17 mmol/L (21-32); CREATININE 3.4 mg/dL (0.55-1.02); SGPT/ALT 30 U/L (12-78)
[2017-01-15 21:35] LABS: TOT PROT 7.5 g/dl (6.4-8.2)
[2017-01-15 21:38] LABS: ALK PHOS 1873 U/L (45-117); SGOT/AST 50 U/L (15-37)
[2017-01-15 21:39] LABS: GLUCOSE,RANDOM 305 mg/dL (74-106)
[2017-01-15 23:26] VITALS: PULSE 82
[2017-01-16 00:56] LABS: CPK 135 IU/L (26-192); TROPONIN I < 0.02 ng/ml (0.00-0.05)
== END 2017-01-16 04:28 ==
LOC: JER 18:21
DX: R07.9 Chest pain, unspecified (principal); I27.82 Chronic pulmonary embolism; J45.901 Unspecified asthma with (acute) exacerbation; R60.0 Localized edema; Z86.69 Personal history of other diseases of the nervous system and sense organs; I12.0 Hypertensive chronic kidney disease with stage 5 chronic kidney disease or end stage renal disease; E10.22 Type 1 diabetes mellitus with diabetic chronic kidney disease; N18.6 End stage renal disease; N17.8 Other acute kidney failure; Z99.2 Dependence on renal dialysis; Z79.4 Long term (current) use of insulin
CPT/HCPCS: 36415; 71010-TC; 80053; 82550; 82803; 83880; 84484; 85025; 85610; 85730; 93005; 93010; 99285-25

== ENCOUNTER 2017-01-17 03:22 | Emergency (ER) | payer OTHER ==
--- NOTE | 2017-01-17 03:46 | PDOC ---
History of Present Illness - General Chief Complaint: Pain, Acute Stated Complaint: LOW BLOOD PRESSURE Time Seen by Provider: 01/17/17 03:35 History Source: Patient - History of Present Illness Initial Comments: 01/17/17 03:44 Patient is a 26 y.o. female with a PMH of ESRD (on HD), HTN, IDDM as well as PE x2 (most recently in 12/2016)who presents to our facility from [facility] with a c/o hypotension (as per paperwork provided by patient BP was 94/46) and R flank pain. Patient states she was last dialyzed on Wednesday (01/15 ) and states her flank pain started shortly thereafter - she is unable to identify any triggering or relieving factors. During HPI patient's eyes remain closed and she is reticient in answering questions. Past History - Past Medical History Allergies/Adverse Reactions: Allergies Allergy/AdvReac Type Severity Reaction Status Date / Time No Known Drug Allergies Allergy Verified 01/17/17 03:49 Home Medications: Ambulatory Orders Gabapentin 100 mg PO TID 03/11/16 Sevelamer Carbonate [Renvela -] 1,600 mg PO TIDCM #60 tab 07/14/16 Oxycodone HCl/Acetaminophen [Percocet 5-325 mg Tablet] 1 tab PO Q6H PRN #60 tablet MDD 4 08/11/16 Acetaminophen [Tylenol .Regular Strength -] 325 mg PO Q6H PRN #0 tablet Insulin Lispro [Humalog Kwikpen U-100] 0 unit SQ TID 12/21/16 Losartan Potassium [Cozaar -] 100 mg PO DAILY 12/21/16 Insulin (Levemir) [Levemir Flexpen -] 15 units SQ BID #5 pen 12/24/16 Metoclopramide HCl [Reglan -] 5 mg PO TIDAC #90 tablet 12/24/16 Clonidine HCl [Catapres -] 0.3 mg PO TID tablet 12/26/16 Labetalol HCl [Normodyne -] 400 mg PO TID #60 tablet 12/26/16 Nifedipine ER [Procardia XL -] 90 mg PO DAILY #60 tab 12/26/16 Hydralazine HCl [Apresoline -] 50 mg PO TID #60 tablet 01/12/17 Warfarin Na [Coumadin -] 7 mg PO DAILY@1800 #30 tablet 01/12/17 Anemia: Yes Asthma: No Cancer: No Cardiac Disorders: No CVA: No COPD: No CHF: No Diabetes: Yes (15 yrs Insulin dependent) Dialysis: Yes (M/W/) Disorders: Yes (ESRD for 6 yrs [facility] -w-) HTN: Yes Hypercholesterolemia: No Kidney Stones: (ESRD, Dialysis Mon, W, F, Left arm Fistula) Seizures: Yes (Several yrs ago, no medication) Thyroid Disease: No - Surgical History Abdominal Surgery: No Cardiac Surgery: Yes (myxoma removed 2013) Cholecystectomy: Yes Lung Surgery: No Neurologic Surgery: No Orthopedic Surgery: Yes - Immunization History Immunization Up to Date: Yes - Suicide/Smoking/Psychosocial Hx Smoking Status: No Smoking History: Never smoked Have you smoked in the past 12 months: No Number of Cigarettes Smoked Daily: 10 Hx Alcohol Use: No Drug/Substance Use Hx: No Substance Use Type: None Hx Substance Use Treatment: No Review of Systems - Review of Systems Constitutional: No: Chills, Fever Respiratory: Yes: Shortness of Breath Cardiac (ROS): No: Chest Pain, Lightheadedness, Palpitations ABD/GI: No: Constipated, Diarrhea, Nausea, Vomiting Musculoskeletal: Yes: Back Pain All Other Systems: Reviewed and Negative *Physical Exam - Physical Exam General Appearance: Yes: Thin Respiratory/Chest: positive: Lungs Clear, Normal Breath Sounds Cardiovascular: positive: S1, S2 Musculoskeletal: positive: CVA Tenderness (R). negative: CVA Tenderness (L) Extremity: positive: Other (RUE HD access, bruit appreciated on ascultation; LLE hardened; pitting edema from ankle to thigh) Integumentary: positive: Normal Color, Dry, Warm Neurologic: positive: Alert ED Treatment Course - LABORATORY CBC & Chemistry Diagram: 01/17/17 04:01 01/17/17 04:01 Medical Decision Making - Medical Decision Making 01/17/17 03:47 Patient is a 26 y.o. female who presents c/o R sided flank pain as well as hypotension. At presentation to our ED patient's reported hypotension had improved 109/57. Patient c/o of R sided flank pain and PE is notable for LLE edema. PLAN: 1. CBC, CMP 2. Lumbar/Sacral XR + Renal U/S 3. LLE Doppler Planned disposition is admit given patient's multiple co-morbidities and 01/17/17 04:02 Spoke with Nurse Jaja Sepulveda @ [facility], patient was c/o of chest pain yesterday during HD and transferred to our facility. Patient was given OTD of narcotic and discharged; states patient was crying today c/o back pain and requested to go to hospital. Patient became hypotensive prompting her visit to our hospital. 01/17/17 06:[address] Valentine Acuña who has evaluated patient on previous occasion and stated she could wait for tomorrow for HD (patient's BNP is trending upward since admission on 01/15) and noted her LLE edema is chronic. Patient to be discharged to [facility]. Mother @ bedside and agrees with plan. *DC/Admit/Observation/Transfer Diagnosis at time of Disposition: Pain - Discharge Dispostion Disposition: RETIREMENT FACILITY Condition at time of disposition: Fair - Patient Instructions Printed Discharge Instructions: DI for Asthma -- Adult Additional Instructions: Please see your PCP, Dr. Alvarado, for evaluation of your chest pain/resolution with breathing treatment. She may want pulmonary studies/evaluation. Please return to the Emergency Department for any worsening or concerning symptoms.
[2017-01-17 03:49] VITALS: BMI 24.3
[2017-01-17 04:09] LABS: BASOPHIL 0.3 % (0-2.0); EOSINOPHIL 0.4 % (0-4.5); MCH 27.7 pg (25.7-33.7); MCHC 31.6 g/dl (32.0-36.0); MEAN CELL VOLUME 87.8 fl (80-96); MEAN PLT VOLUME 9.2 fl (7.5-11.1); NEUTROPHILS 82.7 % (42.8-82.8); PLATELET COUNT 397 K/MM3 (134-434); WHITE BLOOD COUNT 9.7 K/mm3 (4.0-10.0)
[2017-01-17] MEDS ORDERED: KETOROLAC TROMETHAMINE 30 MG/1 ML VIAL IM ONE (04:15)
[2017-01-17] MEDS ORDERED: KETOROLAC TROMETHAMINE 60 MG/2 ML VIAL ONE (04:15)
--- NOTE | 2017-01-17 04:34 | PDOC ---
Attending Attestation - Resident Resident Name: Sophy Gavin - HPI HPI: 01/17/17 04:30 Pt comes with back pain to the ER She was seen in the ER here within the past week. She was also seen at [facility]. Pt may be addicted to narcotics; she will get no narcotics here for pain - Physicial Exam PE: 01/17/17 04:32 agree with resident exam Pt has thin cachectic upper extemities. SHe has swollen legs left >> right ?DVT pitting edema throughout legs. Pt has fistula on the left upper arm Face is puffy likely due to ESRD and anemia heart is tachy; lungs rales at bases. - Medical Decision Making 01/17/17 04:33 SOno renal/kidneys and sono DVT r/o are both pending. Labs sent in our ER; results pending CXR pending Analgesia with toradol given to the patient. 01/17/17 05:38 Pt's BNP went from 31K to 33K. We spoke to ESTER Acuña, who states that this is usual for the patient as well as her leg swelling which is chronic. Pt will be treated symptomatically; she will return to the [place], as she is feeling better.
[2017-01-17] MEDS ORDERED: ACETAMINOPHEN 1000 MG/100 ML VIAL (NON FORMULARY) IVPB ONE (05:14)
[2017-01-17] MEDS ORDERED: ACETAMINOPHEN INJECTION 100 ML IVPB ONE (05:15)
[2017-01-17 05:19] LABS: ALBUMIN 2.7 g/dl (3.4-5.0); ANION GAP 23 (8-16); BILIRUBIN,TOTAL 1.7 mg/dL (0.2-1.0); CO2 19 mmol/L (21-32); CREATININE 4.9 mg/dL (0.55-1.02); SGPT/ALT 31 U/L (12-78); TOT PROT 7.4 g/dl (6.4-8.2)
[2017-01-17 05:21] LABS: ALK PHOS 1810 U/L (45-117)
[2017-01-17 05:24] LABS: GLUCOSE,RANDOM 341 mg/dL (74-106); MAGNESIUM 2.4 mg/dL (1.8-2.4); SGOT/AST 55 U/L (15-37)
[2017-01-17] MEDS ORDERED: INSULIN REGULAR HUMAN 100 UNITS/ML *VIAL IVPUSH ONE (05:35)
[2017-01-17] MEDS ORDERED: INSULIN REGULAR HUMAN 100 UNITS/ML *VIAL ONE (05:54)
[2017-01-17] MEDS ORDERED: ALBUTEROL SO4 2.5/IPRATROPIUM 0.5 INH SOL 3 ML VIAL.NEB. NEB ONE ×2 (05:59→06:06)
[2017-01-17 08:36] VITALS: BP 146/92; PULSE 78; TEMP 98
== END 2017-01-17 08:34 ==
LOC: SUPCPDRO 03:22 → JER 03:22
PROC: 3E0F7GC Introduction of Other Therapeutic Substance into Respiratory Tract, Via Natural or Artificial Opening (ICD-10-PCS; principal; 2017-01-17)
PROC: 3E0F7GC Introduction of Other Therapeutic Substance into Respiratory Tract, Via Natural or Artificial Opening (ICD-10-PCS; 2017-01-17)
PROC: 3E033VG Introduction of Insulin into Peripheral Vein, Percutaneous Approach (ICD-10-PCS; 2017-01-17)
PROC: 3E033NZ Introduction of Analgesics, Hypnotics, Sedatives into Peripheral Vein, Percutaneous Approach (ICD-10-PCS; 2017-01-17)
PROC: 3E0333Z Introduction of Anti-inflammatory into Peripheral Vein, Percutaneous Approach (ICD-10-PCS; 2017-01-17)
DX: R10.31 Right lower quadrant pain (principal); I95.9 Hypotension, unspecified; J45.901 Unspecified asthma with (acute) exacerbation; R60.0 Localized edema; I12.0 Hypertensive chronic kidney disease with stage 5 chronic kidney disease or end stage renal disease; E10.22 Type 1 diabetes mellitus with diabetic chronic kidney disease; N18.6 End stage renal disease; N17.8 Other acute kidney failure; Z99.2 Dependence on renal dialysis; Z79.4 Long term (current) use of insulin; Z86.711 Personal history of pulmonary embolism; Z79.01 Long term (current) use of anticoagulants
CPT/HCPCS: 36415; 80053; 83735; 83880; 84703; 85025; 94640; 96374; 96375; 99282-25

== ENCOUNTER 2017-03-04 06:47 | Inpatient (IN) | payer OTHER ==
--- NOTE | 2017-03-04 07:42 | PDOC ---
History of Present Illness - General Chief Complaint: Weakness Stated Complaint: HIGH FLUID INTAKE Time Seen by Provider: 03/04/17 07:35 - History of Present Illness Initial Comments: 03/04/17 07:36 26 yo F with h/o IDDM, HTN, and ESRD ( dialysis on MWF) who presents with generalized weakness/fatigue. Patient reports generalized weakness and BL LE swelling since Wednesday. Was unable to attend dialysis yesterday d/t weakness, and fatigue. SOB at baseline ( home 02 2 liters oxygen) with increased Alfaro for past week. No UOP at baseline Denies cough,chest pain, fevers/chills, lightheadedness, dizziness. HGb 6.5 at outside office[address] PCP Dr. Edna Calero. Dr. Vo Nephrology. Moved from outside nursing facility to apartment 2 weeks ago. Last seen in ED ( 01/17/17) with BL LE edema and pain. Received negative workup and d /c'd back to nursing facility. On Novolog and Levemir 15 U. Past History - Past Medical History Allergies/Adverse Reactions: Allergies Allergy/AdvReac Type Severity Reaction Status Date / Time No Known Drug Allergies Allergy Verified 03/04/17 07:10 Home Medications: Ambulatory Orders Gabapentin 100 mg PO TID 03/11/16 Sevelamer Carbonate [Renvela -] 1,600 mg PO TIDCM #60 tab 07/14/16 Acetaminophen [Tylenol .Regular Strength -] 325 mg PO Q6H PRN #0 tablet Insulin Lispro [Humalog Kwikpen U-100] 0 unit SQ TID 12/21/16 Losartan Potassium [Cozaar -] 100 mg PO DAILY 12/21/16 Insulin (Levemir) [Levemir Flexpen -] 15 units SQ BID #5 pen 12/24/16 Clonidine HCl [Catapres -] 0.3 mg PO TID tablet 12/26/16 Labetalol HCl [Normodyne -] 400 mg PO TID #60 tablet 12/26/16 Nifedipine ER [Procardia XL -] 90 mg PO DAILY #60 tab 12/26/16 Hydralazine HCl [Apresoline -] 50 mg PO TID #60 tablet 01/12/17 Warfarin Na [Coumadin -] 7 mg PO DAILY@1800 #30 tablet 01/12/17 Oxycodone HCl 10 mg PO PRN 03/04/17 Anemia: Yes Asthma: No Cancer: No Cardiac Disorders: No CVA: No COPD: No CHF: No DVT: No Diabetes: Yes (15 yrs Insulin dependent) Dialysis: Yes (M/W/F) Disorders: Yes ([facility] HTN: Yes Hypercholesterolemia: No Kidney Stones: (ESRD, Dialysis Mon, W, F, Left arm Fistula) Seizures: Yes (Several yrs ago, no medication) Thyroid Disease: No - Surgical History Abdominal Surgery: No Cardiac Surgery: Yes (myxoma removed 2013) Cholecystectomy: Yes Lung Surgery: No Neurologic Surgery: No Orthopedic Surgery: Yes - Immunization History Immunization Up to Date: Yes - Suicide/Smoking/Psychosocial Hx Smoking Status: No Smoking History: Never smoked Have you smoked in the past 12 months: No Number of Cigarettes Smoked Daily: 10 Information on smoking cessation initiated: No Hx Alcohol Use: No Drug/Substance Use Hx: No Substance Use Type: None Hx Substance Use Treatment: No Review of Systems - Review of Systems Comments:: 03/04/17 07:53 GENERAL/CONSTITUTIONAL: No fever or chills. No weakness. HEAD, EYES, EARS, NOSE AND THROAT: No change in vision. No ear pain or discharge. No sore throat.- CARDIOVASCULAR: No chest pain or shortness of breath RESPIRATORY: No cough, wheezing, or hemoptysis. GASTROINTESTINAL: No nausea, vomiting, diarrhea or constipation. GENITOURINARY: No dysuria, frequency, or change in urination. MUSCULOSKELETAL: No joint or muscle swelling or pain. No neck or back pain. SKIN: No rash NEUROLOGIC: No headache, vertigo, loss of consciousness, or change in strength/ sensation. ENDOCRINE: No increased thirst. No abnormal weight change HEMATOLOGIC/LYMPHATIC: No anemia, easy bleeding, or history of blood clots. ALLERGIC/IMMUNOLOGIC: No hives or skin allergy. *Physical Exam - Vital Signs Last Vital Signs Temp Pulse Resp BP Pulse Ox 97.7 F 74 19 174/96 99 03/04/17 07:06 03/04/17 07:06 03/04/17 07:06 03/04/17 07:06 03/04/17 07:06 - Physical Exam Comments: 03/04/17 07:54 GENERAL: Awake, alert, and fully oriented, in no acute distress HEAD: Face appears puffy. No signs of trauma, normocephalic, atraumatic EYES: PERRLA, EOMI, sclera anicteric, conjunctiva clear ENT: Hearing grossly normal, nares patent, oropharynx clear without exudates. Moist mucosa NECK: Normal ROM, supple, no lymphadenopathy, JVD, or masses LUNGS: No distress, speaks full sentences, clear to auscultation bilaterally. Diffuse excoriations over back. HEART: Regular rate and rhythm, normal S1 and S2, no murmurs, rubs or gallops, peripheral pulses normal and equal bilaterally. EXTREMITIES : BL LE 2 + Pitting edema. painful to palptation. Normal inspection , Normal range of motion, no edema. No clubbing or cyanosis. NEUROLOGICAL: Cranial nerves II through XII grossly intact. Normal speech, normal gait, no focal sensorimotor deficits SKIN: Warm, Dry, normal turgor, no rashes or lesions noted. Heart Score/ECG Review - History History: Slightly suspicious - Electrocardiogram EKG: Normal - ECG Intrepretation Rhythm: Regular Rhythm - Stapleton Stapleton: Normal ED Treatment Course - LABORATORY CBC & Chemistry Diagram: 03/04/17 08:20 03/04/17 11:38 Medical Decision Making - Medical Decision Making 03/04/17 08:55 26 yo F with h/o IDDM, HTN, and ESRD ( dialysis on MWF) who presents with generalized weakness, fatigue, and BL LE swelling since Wednesday. Unable to attend dialysis yesterday d/t weakness, and fatigue. SOB at baseline ( home 02 2 liters oxygen) with increased Alfaro for past week. No UOP at baseline other asx. complaints, but reports HGb 6.5 at outside office. PCP Dr. Edna Calero. Physical exam reveals BL LE edema, and HTN ( 174/96). Will obtain laboratory workup and EKG to r/o underlying metabolic disturbances and anemia of chronic disease in setting of ESRD. ED Course: CBC, CMP, EKG, Serum Preg 03/04/17 09:02 Glucose 913, Sodium 124. Corrected Sodium 137. 03/04/17 09:11 HgB 7.3 ( 7-8 baseline) 03/04/17 09:17 EKG: NSR with absent POLA, STD, or TWI. Received 10 mg Insulin IVPB x 3, and started on insulin drip after BS consistently over 500. Blood sugar 238 03/04/17 15:31 Spoke to [facility] will admit patient admitted to Inpatient for dialysis. *DC/Admit/Observation/Transfer Diagnosis at time of Disposition: ESRD (end stage renal disease) on dialysis Diabetes mellitus, insulin dependent (IDDM), uncontrolled Qualifiers: Diabetes mellitus complication status: with unspecified complications Qualified Code(s): E10.8 - Type 1 diabetes mellitus with unspecified complications - Discharge Dispostion Admit: Yes - Referrals - Patient Instructions - Post Discharge Activity
--- NOTE | 2017-03-04 07:45 | PDOC ---
Attending Attestation - Resident Resident Name: Barber Medrano - HPI HPI: 03/04/17 14:48 Pt presents to the ED complaining of generalized malaise. Admits to intermittent non compliance with medications. History of DM, ESRD on HD. States that she did not go to HD yesterday because she was feeling ill. Denies fever. Denies nausea and vomiting. Also complaining of worsening of her chronic bilateral lower extremity edema. - Physicial Exam PE: 03/04/17 15:18 Agree with resident exam. Patient is alert and oriented and has bilateral lower extremity edema that is symmetric and 2+. - Medical Decision Making 03/04/17 15:19 Pt presents to the ED complaining of generalized malaise. Initial concern for DKA, uremia, sepsis. Labs show severe hyperglycemia without DKA, and without infection. Hyperglycemia did not respond to multiple IV insulin boluses. Will start IV insulin drip, admit to medicine for continued monitoring.
[2017-03-04 08:38] LABS: BASOPHIL 1.1 % (0-2.0); EOSINOPHIL 2.8 % (0-4.5); MCH 27.2 pg (25.7-33.7); MCHC 30.2 g/dl (32.0-36.0); MEAN CELL VOLUME 90.3 fl (80-96); MEAN PLT VOLUME 9.2 fl (7.5-11.1); NEUTROPHILS 74.6 % (42.8-82.8); PLATELET COUNT 337 K/MM3 (134-434); RDW 17.8 % (11.6-15.6)
[2017-03-04 08:57] LABS: ALBUMIN 3.1 g/dl (3.4-5.0); ANION GAP 16 (8-16); CALCIUM 7.9 mg/dL (8.5-10.1); CO2 21 mmol/L (21-32); CREATININE 6.5 mg/dL (0.55-1.02); SGOT/AST 14 U/L (15-37); SGPT/ALT 20 U/L (12-78); TOT PROT 8.4 g/dl (6.4-8.2)
[2017-03-04 09:00] LABS: GLUCOSE,RANDOM 913 mg/dL (74-106)
[2017-03-04] MEDS ORDERED: INSULIN REGULAR HUMAN 100 UNITS/ML *VIAL IVPUSH ONE ×3 (09:04→11:09)
[2017-03-04 09:10] LABS: ALK PHOS 1076 U/L (45-117)
[2017-03-04] MEDS ORDERED: INSULIN NPH 100 UNITS/ML *VIAL ONE (09:19)
[2017-03-04 09:50] LABS: VENOUS BLOOD GAS HCO3 21.1 meq/L (19-25); VENOUS PH 7.29 (7.32-7.42)
[2017-03-04] MEDS ORDERED: INSULIN REGULAR HUMAN 100 UNITS/ML *VIAL ONE (10:08)
[2017-03-04 12:24] LABS: ANION GAP 15 (8-16); CALCIUM 7.5 mg/dL (8.5-10.1); CO2 21 mmol/L (21-32); CREATININE 6.7 mg/dL (0.55-1.02)
[2017-03-04 12:25] LABS: GLUCOSE,RANDOM 758 mg/dL (74-106)
--- NOTE | 2017-03-04 12:54 | EKG ---
Test Reason : Blood Pressure : / mmHG Vent. Rate : 073 BPM Atrial Rate : 073 BPM P-R Int : 190 ms QRS Dur : 088 ms QT Int : 428 ms P-R-T Axes : 033 009 042 degrees QTc Int : 471 ms NORMAL SINUS RHYTHM CANNOT RULE OUT ANTERIOR INFARCT (CITED ON OR BEFORE 04-MAR-2017) ABNORMAL ECG WHEN COMPARED WITH ECG OF 15-JAN-2017 18:33, QUESTIONABLE CHANGE IN QRS AXIS Confirmed by WESLEY SABILLON MD ([id number]) on 03/04/2017 12:54:05 PM Referred By: Confirmed By:WESLEY SABILLON MD
[2017-03-04] MEDS ORDERED: INSULIN REGULAR 100 UNITS in SODIUM CHLORIDE 99 ML IVPB SCH (13:15)
--- NOTE | 2017-03-04 15:37 | HP ---
Admitting History and Physical - Admission Chief Complaint: generalized weakness, fatigue History of Present Illness: HPI: This 26 year old female with phx ESRD (MWF), HTN, IDDM, hx of DVT, recent PE ( on coumadin) and anemia, [facility] and a week later presented to the ED with generalized weakness and shortness of breath. Per the patient, she was told by her dialysis unit to come to the ED due to low hemoglobin levels. She reports to being compliant with HD and gets dialysis at [facility], however this past Wednesday she was feeling so tired and weak she could not go. Recently, she was placed on 2L of home o2 to which she feels is helping. She did not take her insulin yesterday because she did not have an appetite and therefore did not eat. She does not make much urine History Source: Patient Limitations to Obtaining History: No Limitations - Past Medical History Cardiovascular: Yes: CHF, HTN, Other (thrombus in atrium, PE, DVT) Pulmonary: Yes: Pulmonary Embolus Renal/: Yes: Renal Failure, Hemodialysis ...LMP: 08/17/14 Heme/Onc: Yes: Anemia, Other (atrial myxoma s/p surgical removal. Also has a history of PE ) Infectious Disease: Yes: MRSA (history of bacteremia, recent mrsa foot abscess) Endocrine: Yes: Diabetes Mellitus (type 1 on insulin pump) - Past Surgical History Past Surgical History: Yes: AV Fistula/Graft (Right arm) - Smoking History Smoking history: Never smoked Have you smoked in the past 12 months: No Aproximately how many cigarettes per day: 10 - Alcohol/Substance Use Hx Alcohol Use: No History of Substance Use: reports: None - Social History Usual Living Arrangement: Yes: With Parent ADL: Independent Occupation: unemployed History of Recent Travel: No Home Medications - Allergies Allergies/Adverse Reactions: Allergies Allergy/AdvReac Type Severity Reaction Status Date / Time No Known Drug Allergies Allergy Verified 03/04/17 07:10 - Home Medications Home Medications: Ambulatory Orders Gabapentin 100 mg PO TID 03/11/16 Sevelamer Carbonate [Renvela -] 1,600 mg PO TIDCM #60 tab 07/14/16 Acetaminophen [Tylenol .Regular Strength -] 325 mg PO Q6H PRN #0 tablet Insulin Lispro [Humalog Kwikpen U-100] 0 unit SQ TID 12/21/16 Losartan Potassium [Cozaar -] 100 mg PO DAILY 12/21/16 Insulin (Levemir) [Levemir Flexpen -] 15 units SQ BID #5 pen 12/24/16 Clonidine HCl [Catapres -] 0.3 mg PO TID tablet 12/26/16 Labetalol HCl [Normodyne -] 400 mg PO TID #60 tablet 12/26/16 Nifedipine ER [Procardia XL -] 90 mg PO DAILY #60 tab 12/26/16 Hydralazine HCl [Apresoline -] 50 mg PO TID #60 tablet 01/12/17 Warfarin Na [Coumadin -] 7 mg PO DAILY@1800 #30 tablet 01/12/17 Oxycodone HCl 10 mg PO PRN 03/04/17 Family Disease History - Family Disease History Family Disease History: Diabetes: Grandparent (HTN), Heart Disease: Grandparent , Other: Father (unknown), Mother (HTN) Review of Systems - Review of Systems Constitutional: reports: Lethargy, Loss of Appetite, Weakness Eyes: reports: No Symptoms HENT: reports: No Symptoms Neck: reports: No Symptoms Cardiovascular: reports: Shortness of Breath Respiratory: reports: SOB on Exertion Gastrointestinal: reports: No Symptoms Genitourinary: reports: No Symptoms Musculoskeletal: reports: No Symptoms Integumentary: reports: No Symptoms Neurological: reports: No Symptoms Endocrine: reports: No Symptoms Hematology/Lymphatic: reports: No Symptoms Psychiatric: reports: No Symptoms Physical Examination Vital Signs: Vital Signs Temperature 97.9 F 03/04/17 09:34 Pulse Rate 74 03/04/17 07:06 Respiratory Rate 14 03/04/17 09:34 Blood Pressure 174/96 03/04/17 07:06 O2 Sat by Pulse Oximetry (%) 99 03/04/17 09:34 Constitutional: Yes: Well Nourished Eyes: Yes: Conjunctiva Clear HENT: Yes: Atraumatic Neck: Yes: Supple Cardiovascular: Yes: Regular Rate and Rhythm, Tachycardia Respiratory: Yes: Regular, CTA Bilaterally, On Nasal O2 Gastrointestinal: Yes: Normal Bowel Sounds, Soft Extremities: Yes: WNL, Other (LUE AVF + thrill) Edema: Yes Edema: LLE: 3+, RLE: 3+ Neurological: Yes: Alert, Oriented, Cran Nerves II-XII Intact Labs: CBC, BMP 03/04/17 08:20 03/04/17 11:38 Imaging - Results Chest X-ray: Report Reviewed, Image Reviewed Problem List - Problems (1) Hyperglycemia without ketosis Code(s): R73.9 - HYPERGLYCEMIA, UNSPECIFIED (2) Hyperglycemia due to type 2 diabetes mellitus Code(s): E11.65 - TYPE 2 DIABETES MELLITUS WITH HYPERGLYCEMIA (3) Shortness of breath Code(s): R06.02 - SHORTNESS OF BREATH (4) Oxygen dependent Code(s): Z99.81 - DEPENDENCE ON SUPPLEMENTAL OXYGEN (5) Anemia Code(s): D64.9 - ANEMIA, UNSPECIFIED Qualifiers: Folate deficiency anemia type: dietary Qualified Code(s): D52.0 - Dietary folate deficiency anemia (6) Diabetes mellitus, insulin dependent (IDDM), uncontrolled Code(s): E10.65 - TYPE 1 DIABETES MELLITUS WITH HYPERGLYCEMIA Qualifiers: Diabetes mellitus complication status: with unspecified complications Qualified Code(s): E10.8 - Type 1 diabetes mellitus with unspecified complications; E10.65 - Type 1 diabetes mellitus with hyperglycemia; E10.65 - Type 1 diabetes mellitus with hyperglycemia; E10.65 - Type 1 diabetes mellitus with hyperglycemia; E10.65 - Type 1 diabetes mellitus with hyperglycemia (7) Pulmonary embolism Code(s): I26.99 - OTHER PULMONARY EMBOLISM WITHOUT ACUTE COR PULMONALE Qualifiers: Pulmonary embolism type: other Chronicity: chronic Acute cor pulmonale presence: without acute cor pulmonale Qualified Code(s): I27.82 - Chronic pulmonary embolism (8) ESRD (end stage renal disease) on dialysis Code(s): N18.6 - END STAGE RENAL DISEASE; Z99.2 - DEPENDENCE ON RENAL DIALYSIS (9) HTN (hypertension) Code(s): I10 - ESSENTIAL (PRIMARY) HYPERTENSION Qualifiers: Hypertension type: renovascular hypertension Qualified Code(s): I15.0 - Renovascular hypertension Assessment/Plan Assessment: 26 year old female with PMhx of ESRD on HD (MWF), HTN, IDDM, Hx of DVT admitted with generalized weakness and sob and found to have hyperglycemia and anemia Plan: 1. Hyperglycemia - No anion gap noted or acidosis noted - Placed on insulin gtt in ED, now of levemir 15 units given - Continue ISS, BGM ACHS - Levemir 15units BID 2. ESRD on HD MWF - Discussed with renal, will run patient today - Renvela 1600mg TID 3. Anemia of chronic disease - Give 1 unit with HD - Continue procrit w/Hd - Epo per Renal, hold for now as HTN 4. HTN - Clonidine 0.3mg TID - Hydralazine 50mg TID - Labetelol 400mg TID, hold for BP 120/80 - Procardia xl 90mg daily - Cozaar 100mg daily 5. hx of PE/DvT - Continue coumadin 7mg - Daily INR 6. Generalized weakness - Likely due to de conditioning and fluid overload - On gabapentin - Will need aggressive PT Visit type - Emergency Visit Emergency Visit: Yes ED Registration Date: 03/04/17 Care time: The patient presented to the Emergency Department on the above date and was hospitalized for further evaluation of their emergent condition. - New Patient This patient is new to me today: Yes Date on this admission: 03/05/17 - Critical Care Critical Care patient: No
[2017-03-04] MEDS ORDERED: INSULIN DETEMIR 100 UNITS/ML MDV SQ ONE ×2 (15:57→17:22)
[2017-03-04] MEDS ORDERED: EPOETIN ALFA 20,000 UNIT/1 ML VIAL IVPUSH ONE (16:58)
--- NOTE | 2017-03-04 17:07 | CON.NEP ---
Consult Consult Specialty:: Nephrology Referred by:: AIDA Ramos Reason for Consultation:: ESRD on Hd with fluid overload - History of Present Illness Chief Complaint: Leg Swelling History of Present Illness: This is a 26 year old woman with PMhx of ESRD on HD (MWF at [facility]), Hypertension, IDDM, DM type 1, Non-compliance with meds/fluid restriction presents with fluid overlaod and hyperglycemia. - History Source History Provided By: Patient Limitations to Obtaining History: No Limitations - Past Medical History Cardio/Vascular: Yes: CHF, HTN, Other (thrombus in atrium, PE, DVT) Pulmonary: Yes: Pulmonary Embolus Renal/: Yes: Renal Failure, Hemodialysis ...LMP: 08/17/14 Infectious Disease: Yes: MRSA (history of bacteremia, recent mrsa foot abscess) Endocrine: Yes: Diabetes Mellitus (type 1 on insulin pump) Additional Medical History: DVT, PE on coumadin - Past Surgical History Past Surgical History: Yes: AV Fistula/Graft (Right arm) - Alcohol/Substance Use Hx Alcohol Use: No History of Substance Use: reports: None - Smoking History Smoking history: Never smoked Have you smoked in the past 12 months: No Aproximately how many cigarettes per day: 10 - Social History Usual Living Arrangement: With Parent ADL: Independent Occupation: unemployed History of Recent Travel: No Home Medications - Allergies Allergies/Adverse Reactions: Allergies Allergy/AdvReac Type Severity Reaction Status Date / Time No Known Drug Allergies Allergy Verified 03/04/17 07:10 - Home Medications Home Medications: Ambulatory Orders Gabapentin 100 mg PO TID 03/11/16 Sevelamer Carbonate [Renvela -] 1,600 mg PO TIDCM #60 tab 07/14/16 Acetaminophen [Tylenol .Regular Strength -] 325 mg PO Q6H PRN #0 tablet Insulin Lispro [Humalog Kwikpen U-100] 0 unit SQ TID 12/21/16 Losartan Potassium [Cozaar -] 100 mg PO DAILY 12/21/16 Insulin (Levemir) [Levemir Flexpen -] 15 units SQ BID #5 pen 12/24/16 Clonidine HCl [Catapres -] 0.3 mg PO TID tablet 12/26/16 Labetalol HCl [Normodyne -] 400 mg PO TID #60 tablet 09/23/17 Nifedipine ER [Procardia XL -] 90 mg PO DAILY #60 tab 12/26/16 Hydralazine HCl [Apresoline -] 50 mg PO TID #60 tablet 01/12/17 Warfarin Na [Coumadin -] 7 mg PO DAILY@1800 #30 tablet 01/12/17 Oxycodone HCl 10 mg PO PRN 03/04/17 Family Disease History - Family Disease History Family Disease History: Diabetes: Grandparent (HTN), Heart Disease: Grandparent , Other: Father (unknown), Mother (HTN) Review of Systems - Review of Systems Constitutional: reports: No Symptoms Eyes: reports: No Symptoms HENT: reports: No Symptoms Neck: reports: No Symptoms Cardiovascular: reports: Edema. denies: Chest Pain, Palpitations, Shortness of Breath Respiratory: reports: No Symptoms Gastrointestinal: reports: No Symptoms Genitourinary: reports: No Symptoms Musculoskeletal: reports: No Symptoms Neurological: reports: No Symptoms Endocrine: reports: Increased Hunger, Increased Thirst Nephrology Consult - Height Height: 5 ft 2 in - Weight Weight: 65.771 kg - BMI Body Mass Index (BMI): 26.5 - Lab Results CBC,BMP: CBC, BMP 03/04/17 08:20 03/04/17 11:38 Anion Gap: Anion Gap Anion Gap 15 (8-16) 03/04/17 11:38 - Imaging Chest X-ray: Report Reviewed - Physical Examination Vital Signs: Vital Signs Temperature 97.9 F 03/04/17 09:34 Pulse Rate 74 03/04/17 07:06 Respiratory Rate 14 03/04/17 09:34 Blood Pressure 174/96 03/04/17 07:06 O2 Sat by Pulse Oximetry (%) 99 03/04/17 09:34 Constitutional: Yes: Well Nourished, No Distress Eyes: Yes: Conjunctiva Clear HENT: Yes: Atraumatic, Normocephalic Neck: Yes: Supple Cardiovascular: Yes: Regular Rate and Rhythm, S1, S2. No: Murmur, Rub Respiratory: Yes: Regular, CTA Bilaterally. No: Rhonchi, SOB Gastrointestinal: Yes: Normal Bowel Sounds, Soft Renal/: Yes: Anuria Access for Hemodialysis: AV Fistula Edema: Yes Edema: LLE: 2+, RLE: 2+ Neurological: Yes: Alert, Oriented Assessment/Plan 26 year old woman with PMhx of ESRD on HD (MWF at [facility]), Hypertension, IDDM, DM type 1, Non-compliance with meds/fluid restriction presents with fluid overlaod and hyperglycemia. #ESRD on HD with Fluid overload for Hd today with UF as tolerated additional Hd tomorrow with UF fluid restriction of 1.2 L daily low salt diet #Chronic Anemia fro PRBC transfusion with HD today MACIE with HD if bp controlled #Hyperglycemia continue Insulin of insulin gtt #Hypertension continue oral antihypertensives Thank you Will follow Nathan Vo DO
[2017-03-04] MEDS: INSULIN SLIDING SCALE (NOVOLOG) 1 VIAL SQ SCH ×2 (17:20→22:55)
[2017-03-04] MEDS ORDERED: WARFARIN NA 2 MG TABLET (UD) PO SCH (18:00)
[2017-03-04 18:41] VITALS: BMI 25.7
[2017-03-04] MEDS: SEVELAMER CARBONATE 800 MG TAB (FP) PO SCH (18:48)
[2017-03-04 21:27] LABS: INR 1.41 (0.82-1.09); PROTHROMBIN TIME (PATIENT) 15.9 SEC (9.98-11.88)
[2017-03-04] MEDS ORDERED: LABETALOL HCL 200 MG TABLET (FP) PO SCH (22:00)
[2017-03-04] MEDS: cloNIDine HCL 0.1 MG TABLET PO SCH (22:53)
[2017-03-04] MEDS: hydrALAZINE HCL 50 MG TABLET (FP) PO SCH (22:53)
[2017-03-04] MEDS: LABETALOL HCL 200 MG TABLET (FP) PO SCH (22:54)
[2017-03-04] MEDS: INSULIN DETEMIR 100 UNITS/ML MDV SQ SCH ×2 (22:54)
[2017-03-04] MEDS: GABAPENTIN 100 MG CAPSULE (FP) PO SCH (22:56)
[2017-03-05] MEDS ORDERED: PT OWN MED DRAWER 7, Y5N ONE ×5 (00:16→23:59)
[2017-03-05] MEDS: hydrALAZINE HCL 50 MG TABLET (FP) PO SCH ×4 (00:21→21:54)
[2017-03-05] MEDS: LABETALOL HCL 200 MG TABLET (FP) PO SCH ×4 (00:21→21:54)
[2017-03-05] MEDS: INSULIN DETEMIR 100 UNITS/ML MDV SQ SCH ×5 (00:22→21:55)
[2017-03-05] MEDS: cloNIDine HCL 0.1 MG TABLET PO SCH ×5 (00:35→21:55)
[2017-03-05] MEDS: INSULIN SLIDING SCALE (NOVOLOG) 1 VIAL SQ SCH ×5 (01:05→21:59)
[2017-03-05] MEDS ORDERED: LABETALOL HCL 100 MG TABLET (FP) PO ONE (04:30)
[2017-03-05] MEDS: GABAPENTIN 100 MG CAPSULE (FP) PO SCH ×3 (06:55→21:54)
[2017-03-05] MEDS: SEVELAMER CARBONATE 800 MG TAB (FP) PO SCH ×3 (08:31→17:22)
[2017-03-05 09:15] LABS: BASOPHIL 0.8 % (0-2.0); EOSINOPHIL 3.7 % (0-4.5); MCH 27.2 pg (25.7-33.7); MCHC 32.4 g/dl (32.0-36.0); MEAN PLT VOLUME 8.7 fl (7.5-11.1); NEUTROPHILS 77.6 % (42.8-82.8); PLATELET COUNT 306 K/MM3 (134-434); RDW 16.7 % (11.6-15.6); WHITE BLOOD COUNT 9.3 K/mm3 (4.0-10.0)
[2017-03-05 09:36] LABS: ALBUMIN 2.8 g/dl (3.4-5.0); ANION GAP 11 (8-16); BILIRUBIN,TOTAL 0.8 mg/dL (0.2-1.0); CALCIUM 7.8 mg/dL (8.5-10.1); CO2 27 mmol/L (21-32); CREATININE 3.9 mg/dL (0.55-1.02); GLUCOSE,RANDOM 133 mg/dL (74-106); MAGNESIUM 1.7 mg/dL (1.8-2.4); PHOSPHOROUS 3.6 mg/dL (2.5-4.9); SGOT/AST 12 U/L (15-37); SGPT/ALT 16 U/L (12-78); TOT PROT 7.6 g/dl (6.4-8.2)
[2017-03-05 09:48] LABS: ALK PHOS 985 U/L (45-117)
[2017-03-05 10:45] LABS: INR 1.39 (0.82-1.09); PROTHROMBIN TIME (PATIENT) 15.7 SEC (9.98-11.88)
--- NOTE | 2017-03-05 12:17 | PN ---
Progress Note, Physician Chief Complaint: The patient seen on dialysis. UF well tolerated. Denies any chest pain. PRBC transfusion in progress. History of Present Illness: This is a 26 year old woman with PMhx of ESRD on HD (MWF at [facility]), Hypertension, IDDM, DM type 1, Non-compliance with meds/fluid restriction presents with fluid overlaod and hyperglycemia. - Current Medication List Current Medications: Active Medications Clonidine (Catapres -) 0.3 mg PO TID [facility] Last Admin: 03/05/17 06:55 Dose: 0.3 mg Gabapentin (Neurontin -) 100 mg PO TID [facility] Last Admin: 03/05/17 06:55 Dose: 100 mg Hydralazine HCl (Apresoline -) 50 mg PO TID [facility] Last Admin: 03/05/17 06:46 Dose: Not Given Insulin Aspart (Novolog Vial Sliding Scale -) 1 vial SQ [facility] PRN Reason: Protocol Last Admin: 03/05/17 06:35 Dose: 4 units Insulin Detemir (Levemir Vial) 15 units SQ BID@0700,2200 [facility] Last Admin: 03/05/17 06:35 Dose: 15 units Insulin Detemir (Levemir Vial) 15 units SQ BID [facility] Last Admin: 03/04/17 22:54 Dose: Not Given Labetalol HCl (Normodyne -) 400 mg PO TID [facility] Last Admin: 03/05/17 06:41 Dose: Not Given Losartan Potassium (Cozaar -) 100 mg PO DAILY [facility] Nifedipine (Procardia Xl -) 90 mg PO DAILY [facility] Sevelamer Carbonate (Renvela -) 1,600 mg PO TIDCM [facility] Last Admin: 03/05/17 08:31 Dose: Not Given Warfarin Sodium (Coumadin -) 7 mg PO DAILY@1800 [facility] Last Admin: 03/04/17 18:49 Dose: 7 mg - Objective Vital Signs: Vital Signs Temperature 98.5 F 03/05/17 08:30 Pulse Rate 83 03/05/17 11:05 Respiratory Rate 18 03/05/17 11:05 Blood Pressure 176/93 03/05/17 11:05 O2 Sat by Pulse Oximetry (%) 99 03/05/17 09:00 Constitutional: Yes: Calm, Mild Distress HENT: Yes: Normocephalic Neck: Yes: Trachea Midline Cardiovascular: Yes: S1, S2 Respiratory: Yes: Regular, CTA Bilaterally Gastrointestinal: Yes: Normal Bowel Sounds Genitourinary: No: CVA Tenderness - Left, CVA Tenderness - Right Musculoskeletal: Yes: Joint Stiffness. No: Muscle Pain Edema: Yes Edema: RLE: 2+ Neurological: Yes: Alert, Oriented Labs: CBC, BMP 03/05/17 08:45 03/05/17 08:45 INR, PTT INR 1.39 (0.82-1.09) H 03/05/17 09:54 Problem List - Problems (1) Diabetes mellitus, insulin dependent (IDDM), uncontrolled Code(s): E10.65 - TYPE 1 DIABETES MELLITUS WITH HYPERGLYCEMIA Qualifiers: Diabetes mellitus complication status: with unspecified complications Qualified Code(s): E10.8 - Type 1 diabetes mellitus with unspecified complications (2) ESRD (end stage renal disease) on dialysis Code(s): N18.6 - END STAGE RENAL DISEASE; Z99.2 - DEPENDENCE ON RENAL DIALYSIS (3) Anemia Code(s): D64.9 - ANEMIA, UNSPECIFIED Qualifiers: Folate deficiency anemia type: dietary (4) Fluid overload Code(s): E87.70 - FLUID OVERLOAD, UNSPECIFIED Qualifiers: Hypervolemia type: unspecified Qualified Code(s): E87.70 - Fluid overload, unspecified (5) Dialysis patient Code(s): Z99.2 - DEPENDENCE ON RENAL DIALYSIS (6) HTN (hypertension) Code(s): I10 - ESSENTIAL (PRIMARY) HYPERTENSION Qualifiers: Hypertension type: renovascular hypertension Qualified Code(s): I15.0 - Renovascular hypertension Assessment/Plan This is a 26 year old woman with PMhx of ESRD on HD (MWF at [facility]), Hypertension, IDDM, DM type 1, Non-compliance with meds/fluid restriction presents with fluid overlaod and hyperglycemia. The patient receiving dialysis. Profould anemia, and to receive PRBC on dialysis. Will schedule for another HD tomorrow, and do UF as much as tolerated. Susie Peter MD
--- NOTE | 2017-03-05 12:22 | PN ---
Physical Exam: SUBJECTIVE: Patient seen and examined in HD. Reports feeling very anxious and would like something for it. Reports mom has hx of anxiety OBJECTIVE: Vital Signs Period Temp Pulse Resp BP Sys/Ames Pulse Ox Last 24 Hr 98.3 F-98.6 F 68-92 16-20 130-194/68-117 98-100 PE Neuro: alert, awake, cn 2-12intact Pulm: CTAB CV: S1 s2 rrr no mrg Abd: s nt nd + bs Ext: LUE AVF + thrill, + 3 le edema R>L Laboratory Results - last 24 hr 03/04/17 03/04/17 03/04/17 11:38 20:00 20:00 WBC RBC Hgb Hct MCV MCH MCHC RDW Plt Count MPV Neutrophils % Lymphocytes % Monocytes % Eosinophils % Basophils % PT with INR 15.90 H INR 1.41 H D Sodium 126 L Potassium 4.3 Chloride 90 L Carbon Dioxide 21 Anion Gap 15 BUN 60 H Creatinine 6.7 H Creat Clearance w eGFR POC Glucometer Random Glucose 758 H* Calcium 7.5 L Phosphorus Magnesium Total Bilirubin AST ALT Alkaline Phosphatase Total Protein Albumin Blood Type B POSITIVE Antibody Screen Negative Crossmatch See Detail 03/04/17 03/05/17 03/05/17 20:00 00:23 00:26 WBC RBC Hgb Hct MCV MCH MCHC RDW Plt Count MPV Neutrophils % Lymphocytes % Monocytes % Eosinophils % Basophils % PT with INR INR Sodium Potassium Chloride Carbon Dioxide Anion Gap BUN 65 H 24 H D Creatinine 7.0 H 3.0 H D Creat Clearance w eGFR POC Glucometer 370 Random Glucose Calcium Phosphorus Magnesium Total Bilirubin AST ALT Alkaline Phosphatase Total Protein Albumin Blood Type Antibody Screen Crossmatch 03/05/17 03/05/17 03/05/17 05:51 08:45 08:45 WBC 9.3 D RBC 2.75 L Hgb 7.5 L Hct 23.1 L MCV 84.0 D MCH 27.2 MCHC 32.4 RDW 16.7 H Plt Count 306 MPV 8.7 Neutrophils % 77.6 Lymphocytes % 6.7 L Monocytes % 11.2 H Eosinophils % 3.7 Basophils % 0.8 PT with INR INR Sodium 136 Potassium 3.3 L D Chloride 98 Carbon Dioxide 27 D Anion Gap 11 BUN 30 H D Creatinine 3.9 H D Creat Clearance w eGFR 13.83 POC Glucometer 227 Random Glucose 133 H D Calcium 7.8 L Phosphorus 3.6 D Magnesium 1.7 L D Total Bilirubin 0.8 AST 12 L ALT 16 Alkaline Phosphatase 985 H Total Protein 7.6 Albumin 2.8 L Blood Type Antibody Screen Crossmatch 03/05/17 09:54 WBC RBC Hgb Hct MCV MCH MCHC RDW Plt Count MPV Neutrophils % Lymphocytes % Monocytes % Eosinophils % Basophils % PT with INR 15.70 H INR 1.39 H Sodium Potassium Chloride Carbon Dioxide Anion Gap BUN Creatinine Creat Clearance w eGFR POC Glucometer Random Glucose Calcium Phosphorus Magnesium Total Bilirubin AST ALT Alkaline Phosphatase Total Protein Albumin Blood Type Antibody Screen Crossmatch Active Medications Generic Name Dose Route Start Last Admin Trade Name Freq PRN Reason Stop Dose Admin Clonidine 0.3 mg 03/04/17 22:00 03/05/17 06:55 Catapres - PO 0.3 mg TID ROSA MARIA Administration Gabapentin 100 mg 03/04/17 22:00 03/05/17 06:55 Neurontin - PO 100 mg TID ROSA MARIA Administration Hydralazine HCl 50 mg 03/04/17 22:00 03/05/17 06:46 Apresoline - PO Not Given TID ROSA MARIA Insulin Aspart 1 vial 03/04/17 16:30 03/05/17 06:35 Novolog Vial Sliding Scale - SQ 4 units ACHS [facility] Administration Protocol Insulin Detemir 15 units 03/04/17 22:00 03/05/17 06:35 Levemir Vial SQ 15 units BID@0700,2200 [facility] Administration Insulin Detemir 15 units 03/04/17 22:00 03/04/17 22:54 Levemir Vial SQ Not Given BID ROSA MARIA Labetalol HCl 400 mg 03/04/17 22:00 03/05/17 06:41 Normodyne - PO Not Given TID ROSA MARIA Losartan Potassium 100 mg 03/05/17 10:00 Cozaar - PO DAILY ROSA MARIA Nifedipine 90 mg 03/05/17 10:00 Procardia Xl - PO DAILY ROSA MARIA Sevelamer Carbonate 1,600 mg 03/04/17 17:30 03/05/17 08:31 Renvela - PO Not Given TIDCM ROSA MARIA Assessment: 26 year old female with PMhx of ESRD on HD (MWF), HTN, IDDM, Hx of DVT admitted with generalized weakness and sob and found to have hyperglycemia and anemia Plan: 1. Hyperglycemia - Resolved, off insulin gtt - Levemir 15units BID - ISS, BGM ACHS 2. ESRD on HD MWF - HD today, will run again tomorrow - Renvela 1600mg TID 3. Anemia of chronic disease - s/p 1uprbc with HD 03/04 - Continue procrit w/Hd - Epo per Renal, hold for HTN 4. HTN - Clonidine 0.3mg TID - Hydralazine 50mg TID - Labetelol 400mg TID, hold for BP 120/80 - Procardia xl 90mg daily - Cozaar 100mg daily 5. hx of PE/DvT - Patient is non complaint with medication, INR subtherapeutic - Stop coumadin, switch to eliquis 2.5mg BID - Renal aware 6. Generalized weakness - Likely due to de conditioning and fluid overload - On gabapentin - Will need aggressive PT 7. Anxiety - Psych consult - X1 dose ativan 0.5mg 8. DVT - On AC Problem List - Problems (1) Hyperglycemia without ketosis Code(s): R73.9 - HYPERGLYCEMIA, UNSPECIFIED (2) Hyperglycemia due to type 2 diabetes mellitus Code(s): E11.65 - TYPE 2 DIABETES MELLITUS WITH HYPERGLYCEMIA (3) Shortness of breath Code(s): R06.02 - SHORTNESS OF BREATH (4) Oxygen dependent Code(s): Z99.81 - DEPENDENCE ON SUPPLEMENTAL OXYGEN (5) Anemia Code(s): D64.9 - ANEMIA, UNSPECIFIED Qualifiers: Qualified Code(s): D52.0 - Dietary folate deficiency anemia (6) Diabetes mellitus, insulin dependent (IDDM), uncontrolled Code(s): E10.65 - TYPE 1 DIABETES MELLITUS WITH HYPERGLYCEMIA Qualifiers: Qualified Code(s): E10.8 - Type 1 diabetes mellitus with unspecified complications; E10.65 - Type 1 diabetes mellitus with hyperglycemia; E10.65 - Type 1 diabetes mellitus with hyperglycemia; E10.65 - Type 1 diabetes mellitus with hyperglycemia; E10.65 - Type 1 diabetes mellitus with hyperglycemia (7) Pulmonary embolism Code(s): I26.99 - OTHER PULMONARY EMBOLISM WITHOUT ACUTE COR PULMONALE Qualifiers: Qualified Code(s): I27.82 - Chronic pulmonary embolism (8) ESRD (end stage renal disease) on dialysis Code(s): N18.6 - END STAGE RENAL DISEASE; Z99.2 - DEPENDENCE ON RENAL DIALYSIS (9) HTN (hypertension) Code(s): I10 - ESSENTIAL (PRIMARY) HYPERTENSION Qualifiers: Qualified Code(s): I15.0 - Renovascular hypertension Visit type - Emergency Visit Emergency Visit: Yes ED Registration Date: 03/04/17 Care time: The patient presented to the Emergency Department on the above date and was hospitalized for further evaluation of their emergent condition. - New Patient This patient is new to me today: No - Critical Care Critical Care patient: No - Discharge Referral Referred to [facility] Med P.C.: No
[2017-03-05] MEDS ORDERED: LORazepam 0.5 MG TABLET PO ONE (12:23)
[2017-03-05] MEDS: LOSARTAN POTASSIUM 25 MG TABLET PO SCH (13:20)
[2017-03-05] MEDS: NIFEdipine E.R. 90 MG TABLET (FP) PO SCH (13:28)
[2017-03-05] MEDS: APIXABAN 2.5 MG TABLET PO SCH ×2 (15:10→21:55)
--- NOTE | 2017-03-05 17:47 | CON.PSY ---
Psychiatry Consult Chief Complaint: 26 year old AA female with a history of mul;tiple complex medical problems. patient seen for psych evaluation for anxiety. Symptoms: reports: Anxiety - Previous Psychiatric Treatment Outpatient: None Inpatient: None - Previous Substance Abuse Treatment Outpatient: None Inpatient: None - Reason for Previous Treatment Reason for Previous Treatment: Anxiety or Panic Disorder - Current Medications Current Medications: Active Medications Apixaban (Eliquis -) 2.5 mg PO BID [facility] Last Admin: 03/05/17 15:10 Dose: 2.5 mg Clonidine (Catapres -) 0.3 mg PO TID [facility] Last Admin: 03/05/17 15:11 Dose: 0.3 mg Epoetin Abiel (Procrit -) 10,000 unit SQ ONCE ONE Stop: 03/06/17 12:25 Gabapentin (Neurontin -) 100 mg PO TID [facility] Last Admin: 03/05/17 15:10 Dose: 100 mg Hydralazine HCl (Apresoline -) 50 mg PO TID [facility] Last Admin: 03/05/17 15:10 Dose: 50 mg Insulin Aspart (Novolog Vial Sliding Scale -) 1 vial SQ ACHS [facility] PRN Reason: Protocol Last Admin: 03/05/17 16:59 Dose: 2 units Insulin Detemir (Levemir Vial) 15 units SQ BID@0700,2200 [facility] Last Admin: 03/05/17 06:35 Dose: 15 units Insulin Detemir (Levemir Vial) 15 units SQ BID [facility] Last Admin: 03/05/17 13:18 Dose: Not Given Labetalol HCl (Normodyne -) 400 mg PO TID [facility] Last Admin: 03/05/17 15:10 Dose: 400 mg Losartan Potassium (Cozaar -) 100 mg PO DAILY [facility] Last Admin: 03/05/17 13:20 Dose: 100 mg Nifedipine (Procardia Xl -) 90 mg PO DAILY [facility] Last Admin: 03/05/17 13:28 Dose: Not Given Sevelamer Carbonate (Renvela -) 1,600 mg PO TIDCM [facility] Last Admin: 03/05/17 17:22 Dose: 1,600 mg - Allergies Allergies: Allergies Allergy/AdvReac Type Severity Reaction Status Date / Time No Known Drug Allergies Allergy Verified 03/04/17 07:10 - Current Living Status Usual Living Arrangement: With Parent - Current Mental Status Evaluation Appearance: Well Groomed Attitude: Cooperative - Affect Affect: Constrictive Appropriateness: Appropriate to Content - Mood Mood: Anxious - Speech/Language Expressive: Coherent Receptive: Age Appropriate Comprehension of Spoken Words - Psychomotor Activity Psychomotor Activity: Slowed - Thought Process Thought Process: Intact - Thought Content Hallucinations: Absent Delusions: Absent - Self Perception Self Perception: No Impairment - Cognition Attention: Alert Orientation: Time Memory, Immediate Recall: Intact Memory, Short Term: 3/3 Memory, Remote with Promptin/3 - Concentration Serial Sevens Intact: Yes Simple Calculations Intact: Yes - Abstraction Proverb Interpretation: Intact Judgement: Intact - Insight Insight: Intact - Impulse Control Impulse Control: Good Control - Suicidal Ideation Suicidal Ideation: No - Homicidal Ideation Homicidal Ideation: No Assessment/Plan 1) Buspar 10mg po tid for anxiety.
[2017-03-05] MEDS: busPIRone HCL 10 MG TABLET (FP) PO SCH ×2 (18:46→21:55)
[2017-03-06] MEDS: LABETALOL HCL 200 MG TABLET (FP) PO SCH ×2 (05:59→13:15)
[2017-03-06] MEDS: GABAPENTIN 100 MG CAPSULE (FP) PO SCH ×2 (05:59→13:15)
[2017-03-06] MEDS: hydrALAZINE HCL 50 MG TABLET (FP) PO SCH ×2 (06:00→13:15)
[2017-03-06] MEDS: cloNIDine HCL 0.1 MG TABLET PO SCH ×2 (06:00→13:18)
[2017-03-06] MEDS: busPIRone HCL 10 MG TABLET (FP) PO SCH ×2 (06:00→13:16)
[2017-03-06] MEDS: INSULIN DETEMIR 100 UNITS/ML MDV SQ SCH (06:25)
[2017-03-06] MEDS ORDERED: ACETAMINOPHEN 325 MG TABLET (FP) PO ONE (06:30)
[2017-03-06] MEDS ORDERED: PT OWN MED DRAWER 7, Y5N ONE ×2 (06:58→12:59)
[2017-03-06] MEDS: INSULIN SLIDING SCALE (NOVOLOG) 1 VIAL SQ SCH (07:00)
[2017-03-06] MEDS ORDERED: INSULIN SLIDING SCALE (NOVOLOG) 1 VIAL SQ SCH (08:27)
[2017-03-06] MEDS ORDERED: INSULIN (NOVOLOG) ASPART 100 UNITS/ML 10ML VIAL SQ SCH (08:30)
[2017-03-06] MEDS ORDERED: INSULIN (NOVOLOG) ASPART 100 UNITS/ML 10ML VIAL ONE (08:31)
[2017-03-06] MEDS: SEVELAMER CARBONATE 800 MG TAB (FP) PO SCH ×2 (09:04→13:18)
--- NOTE | 2017-03-06 09:43 | PN ---
Progress Note (short form) - Note Progress Note: Renal follow up for ESRD on HD Pt seen and examined in dialysis BP shari hgih 200/120, got BP meds just prior to coming to HD unit no GUTIERRES, CP, sob goal UF is 3-3.5L as tolerated Vital Signs Temperature 98.2 F 03/06/17 08:03 Pulse Rate 90 03/06/17 08:03 Respiratory Rate 16 03/06/17 08:03 Blood Pressure 180/90 03/06/17 08:03 O2 Sat by Pulse Oximetry (%) 99 03/05/17 21:00 Intake & Output 03/03/17 03/04/17 03/05/17 03/06/17 23:59 23:59 23:59 23:59 Intake Total 400 1000 Balance 400 1000 Weight 72.212 kg NAD awake and alert RRR, NO M/R CTA No LE edema CBC, BMP 03/05/17 08:45 03/06/17 07:20 Current Medications Apixaban (Eliquis -) 2.5 mg PO BID [facility] Last Admin: 03/05/17 21:55 Dose: 2.5 mg Buspirone HCl (Buspar -) 10 mg PO TID [facility] Last Admin: 03/06/17 06:00 Dose: 10 mg Clonidine (Catapres -) 0.3 mg PO TID [facility] Last Admin: 03/06/17 06:00 Dose: 0.3 mg Epoetin Abiel (Procrit -) 10,000 unit SQ ONCE ONE Stop: 03/06/17 10:01 Gabapentin (Neurontin -) 100 mg PO TID [facility] Last Admin: 03/06/17 05:59 Dose: 100 mg Hydralazine HCl (Apresoline -) 50 mg PO TID [facility] Last Admin: 03/06/17 06:00 Dose: 50 mg Insulin Aspart (Novolog Vial Sliding Scale -) 1 vial SQ [facility] PRN Reason: Protocol Insulin Aspart (Novolog Vial) 15 units SQ HS [facility] PRN Reason: Protocol Last Admin: 03/06/17 08:36 Dose: 15 units Insulin Detemir (Levemir Vial) 15 units SQ BID@0700,2200 [facility] Last Admin: 03/06/17 06:25 Dose: 15 units Labetalol HCl (Normodyne -) 400 mg PO TID [facility] Last Admin: 03/06/17 05:59 Dose: 400 mg Losartan Potassium (Cozaar -) 100 mg PO DAILY [facility] Last Admin: 03/05/17 13:20 Dose: 100 mg Nifedipine (Procardia Xl -) 90 mg PO DAILY [facility] Last Admin: 03/05/17 13:28 Dose: Not Given Sevelamer Carbonate (Renvela -) 1,600 mg PO TIDCM [facility] Last Admin: 03/06/17 09:04 Dose: Not Given 26 year old woman with PMhx of ESRD on HD (MWF at [facility]), Hypertension, IDDM, DM type 1, Non-compliance with meds/fluid restriction presents with fluid overlaod and hyperglycemia. #ESRD on HD with Fluid overload HD today with UF as tolerated fluid restriction, salt restriction #Chronic Anemia s/p 2 prbc transfusion this admission MACIE with HD #Hyperglycemia continue Insulin of insulin gtt #Hypertension BP high this am, got Labetalol and Clonidine, Hydralazine already to get Losartan, Nifedipine as well today Thank you Will follow Nathan Vo DO
[2017-03-06 09:58] LABS: BASOPHIL 0.4 % (0-2.0); EOSINOPHIL 1.7 % (0-4.5); MCH 27.5 pg (25.7-33.7); MCHC 31.5 g/dl (32.0-36.0); MEAN CELL VOLUME 87.3 fl (80-96); PLATELET COUNT 295 K/MM3 (134-434); RDW 16.7 % (11.6-15.6); WHITE BLOOD COUNT 7.5 K/mm3 (4.0-10.0)
[2017-03-06] MEDS ORDERED: EPOETIN ALFA 10,000 UNIT/1 ML VIAL SQ ONE (10:00)
[2017-03-06 10:10] LABS: INR 1.42 (0.82-1.09); PROTHROMBIN TIME (PATIENT) 16.1 SEC (9.98-11.88)
[2017-03-06 10:14] LABS: ALBUMIN 2.6 g/dl (3.4-5.0); ANION GAP 11 (8-16); BILIRUBIN,TOTAL 1.3 mg/dL (0.2-1.0); CALCIUM 7.7 mg/dL (8.5-10.1); CO2 27 mmol/L (21-32); CREATININE 4.1 mg/dL (0.55-1.02); SGOT/AST 25 U/L (15-37); SGPT/ALT 19 U/L (12-78); TOT PROT 7.6 g/dl (6.4-8.2)
[2017-03-06 10:29] LABS: ALK PHOS 1011 U/L (45-117)
[2017-03-06 10:52] LABS: GLUCOSE,RANDOM 610 mg/dL (74-106)
[2017-03-06] MEDS: LOSARTAN POTASSIUM 25 MG TABLET PO SCH (13:14)
[2017-03-06] MEDS: NIFEdipine E.R. 90 MG TABLET (FP) PO SCH (13:16)
[2017-03-06] MEDS: APIXABAN 2.5 MG TABLET PO SCH (13:16)
[2017-03-06 13:21] LABS: ANION GAP 8 (8-16); CALCIUM 8.9 mg/dL (8.5-10.1); CO2 30 mmol/L (21-32); GLUCOSE,RANDOM 226 mg/dL (74-106)
[2017-03-06 14:25] VITALS: BP 160/90; PULSE 80; TEMP 97.8
[2017-03-06] MEDS ORDERED: oxyCODONE HCL 5 MG TABLET PO ONE (14:29)
--- NOTE | 2017-03-07 09:59 | DS ---
Physical Exam: SUBJECTIVE: Patient seen and examined. She OBJECTIVE: Vital Signs Period Temp Pulse Resp BP Sys/Ames Pulse Ox Last 24 Hr 97.8 F 80-92 18-18 160-195/90-116 PE Neuro: alert, awake, cn 2-12intact Pulm: CTAB CV: S1 s2 rrr no mrg Abd: s nt nd + bs Ext: LUE AVF + thrill, + 3 le edema R>L Laboratory Results - last 24 hr 03/06/17 03/06/17 03/06/17 09:10 09:10 12:20 WBC 7.5 RBC 2.88 L Hgb 7.9 L Hct 25.2 L MCV 87.3 MCH 27.5 MCHC 31.5 L RDW 16.7 H Plt Count 295 MPV 9.0 Neutrophils % 82.0 Lymphocytes % 8.7 D Monocytes % 7.2 Eosinophils % 1.7 Basophils % 0.4 PT with INR INR Sodium 133 L 135 L Potassium 3.8 3.5 Chloride 95 L 97 L Carbon Dioxide 27 30 Anion Gap 11 8 BUN 32 H 13 D Creatinine 4.1 H 2.0 H D Creat Clearance w eGFR 13.05 POC Glucometer Random Glucose 610 H* 226 H D Calcium 7.7 L 8.9 Total Bilirubin 1.3 H D AST 25 D ALT 19 Alkaline Phosphatase 1011 H Total Protein 7.6 Albumin 2.6 L Blood Type Antibody Screen Crossmatch HOSPITAL COURSE: Date of Admission:03/04/17 Date of Discharge: 03/07/17 Minutes to complete discharge: 37 Discharge Summary Reason For Visit: TYPE 1 DIABETES QUINN W HYPERGLYCEMIA Hospital Course: Initial Hospital Course: Briefly, this 26 year old female with phx ESRD (MWF), HTN, IDDM, hx of DVT, recent PE (on coumadin) and anemia, 2 weeks ago was discharged from [facility] went home and a week later presented to the ED with generalized weakness and shortness of breath. Per the patient, she was told by her dialysis unit to come to the ED due to low hemoglobin levels. She reported to being compliant with HD and gets dialysis at [facility], however this past Wednesday she was feeling tired and weak she could not go. Recently, she was placed on 2L of home o2 to which she feels is helping. She did not take her insulin yesterday because she did not have an appetite and therefore did not eat. She does not make much urine Subsequent Hospital Course/Progress Note/Discharge Summary: Assessment: 26 year old female with PMhx of ESRD on HD (MWF), HTN, IDDM, Hx of DVT admitted with generalized weakness and sob and found to have hyperglycemia and anemia Plan: 1. Hyperglycemia - Resolved, off insulin gtt - Levemir 15units BID - Resume home ISS 2. ESRD on HD MWF - HD 03/05, 03/06 - Renvela 1600mg TID - Resume oupt HD 3. Anemia of chronic disease - s/p 1uprbc with HD 03/04 - Continue procrit w/Hd - Epo per Renal, hold for HTN 4. HTN - Clonidine 0.3mg TID - Hydralazine 50mg TID - Labetelol 400mg TID - Procardia xl 90mg daily - Cozaar 100mg daily 5. hx of PE/DVT - Patient is non complaint with medication, INR subtherapeutic - Change to Eliquis 2.5mg BID 6. Generalized weakness - Improved with HD - On gabapentin 7. Anxiety - Started buspar 10mg TID - Psych referral enclosed Dispo: - Home with above meds and referrals - Pt aware and agrees to above plan Condition: Stable - Instructions Diet, Activity, Other Instructions: Please return to the Ed for any new, persistent, or worsening symptoms. Follow up with your PCP 1 week (referrals enclosed) Resume home medication as directed Stick to strict diabetic diet, stay away from sugars meals and high carbohydrates Take Eliquis 2.5mg BID for treatment of PE Resume regular dialysis MWF Referral for psych enclosed Keep appointment with pain management doctor for 03/25 Referrals: Andrea Bermudez MD [Staff Physician] - Agusto Ortiz MD [Staff Physician] - 1 Week Alma Ugalde MD [Staff Physician] - Nathan Vo MD [Staff Physician] - Disposition: HOME - Home Medications Comprehensive Discharge Medication List: Ambulatory Orders Gabapentin 100 mg PO TID 03/11/16 Sevelamer Carbonate [Renvela -] 1,600 mg PO TIDCM #60 tab 07/14/16 Acetaminophen [Tylenol .Regular Strength -] 325 mg PO Q6H PRN #0 tablet Insulin Lispro [Humalog Kwikpen U-100] 0 unit SQ TID 12/21/16 Losartan Potassium [Cozaar -] 100 mg PO DAILY 12/21/16 Insulin (Levemir) [Levemir Flexpen -] 15 units SQ BID #5 pen 12/24/16 Clonidine HCl [Catapres -] 0.3 mg PO TID tablet 12/26/16 Labetalol HCl [Normodyne -] 400 mg PO TID #60 tablet 12/26/16 Nifedipine ER [Procardia XL -] 90 mg PO DAILY #60 tab 12/26/16 Hydralazine HCl [Apresoline -] 50 mg PO TID #60 tablet 01/12/17 Oxycodone HCl 10 mg PO PRN 03/04/17 Apixaban [Eliquis -] 2.5 mg PO BID #60 tablet 03/06/17 Buspirone HCl [Buspar -] 10 mg PO TID #90 tablet 03/06/17 Oxycodone HCl 10 mg PO Q6H PRN #10 tablet MDD 4 03/06/17 Problem List - Problems (1) Hyperglycemia without ketosis Code(s): R73.9 - HYPERGLYCEMIA, UNSPECIFIED (2) Hyperglycemia due to type 2 diabetes mellitus Code(s): E11.65 - TYPE 2 DIABETES MELLITUS WITH HYPERGLYCEMIA (3) Shortness of breath Code(s): R06.02 - SHORTNESS OF BREATH (4) Oxygen dependent Code(s): Z99.81 - DEPENDENCE ON SUPPLEMENTAL OXYGEN (5) Anemia Code(s): D64.9 - ANEMIA, UNSPECIFIED Qualifiers: Folate deficiency anemia type: dietary (6) Diabetes mellitus, insulin dependent (IDDM), uncontrolled Code(s): E10.65 - TYPE 1 DIABETES MELLITUS WITH HYPERGLYCEMIA Qualifiers: Diabetes mellitus complication status: with unspecified complications Qualified Code(s): E10.8 - Type 1 diabetes mellitus with unspecified complications (7) Pulmonary embolism Code(s): I26.99 - OTHER PULMONARY EMBOLISM WITHOUT ACUTE COR PULMONALE Qualifiers: Pulmonary embolism type: other Chronicity: chronic Acute cor pulmonale presence: without acute cor pulmonale Qualified Code(s): I27.82 - Chronic pulmonary embolism (8) ESRD (end stage renal disease) on dialysis Code(s): N18.6 - END STAGE RENAL DISEASE; Z99.2 - DEPENDENCE ON RENAL DIALYSIS (9) HTN (hypertension) Code(s): I10 - ESSENTIAL (PRIMARY) HYPERTENSION Qualifiers: Hypertension type: renovascular hypertension Qualified Code(s): I15.0 - Renovascular hypertension This patient is new to me today: No Emergency Visit: Yes ED Registration Date: 03/04/17 Care time: The patient presented to the Emergency Department on the above date and was hospitalized for further evaluation of their emergent condition. Critical Care patient: No - Discharge Referral Referred to [facility] Med P.C.: No
== END 2017-03-06 16:15 | disposition home or self-care (01) | DRG 637 ==
LOC: JER 06:47 → JERBED 15:30 → INTOOBSV 15:30 → UNDOADMOB 15:30 → JERBED 15:58 → OBSVTOIN 16:12 → J6S 17:30
PROVIDERS: ADMIT Internal Medicine; ATTEND Nurse Practitioner Acute Care
PROC: 30233N1 Transfusion of Nonautologous Red Blood Cells into Peripheral Vein, Percutaneous Approach (ICD-10-PCS; principal; 2017-03-04)
PROC: 5A1D70Z Performance of Urinary Filtration, Intermittent, Less than 6 Hours Per Day (ICD-10-PCS; 2017-03-04)
DX: E10.65 Type 1 diabetes mellitus with hyperglycemia (principal); D63.8 Anemia in other chronic diseases classified elsewhere; I13.2 Hypertensive heart and chronic kidney disease with heart failure and with stage 5 chronic kidney disease, or end stage renal disease; N18.6 End stage renal disease; D64.9 Anemia, unspecified; I50.89 Other heart failure; E10.21 Type 1 diabetes mellitus with diabetic nephropathy; F41.8 Other specified anxiety disorders; E87.79 Other fluid overload; Z86.718 Personal history of other venous thrombosis and embolism; Z91.14 Patient's other noncompliance with medication regimen; Z99.81 Dependence on supplemental oxygen; Z86.711 Personal history of pulmonary embolism
CPT/HCPCS: 36415; 36430; 36511; 71010-TC; 80048; 80053; 82009; 82565; 82803; 82947; 83735; 84100; 84520; 84703; 85025; 85610; 86704; 86706; 86708; 86803; 86850; 86900; 86901; 86922; 87081; 87340; 93005; 93010; 99285-25; G0378; J0885; P9038; P9058

== ENCOUNTER 2017-03-16 14:02 | Emergency (ER) | payer OTHER ==
[2017-03-16 14:37] VITALS: TEMP 97.9; BMI 23.3
--- NOTE | 2017-03-16 15:24 | PDOC ---
History of Present Illness - History of Present Illness Initial Comments: 26 yo F with h/o IDDM, HTN, and ESRD ( dialysis on MWF), SOB at baseline ( home 02 2 liters oxygen), recent PE (on Eliquis) who presents with elevated BPs to 190s systolics on a home health visit. States that her Nicardipine was discontinued and she has had BP issues since then. She denies headache, foal neuro sign, chest pain, or other acute symptoms. She went to her dialysis session yesterday and states that they took 3 liters off and the session went to completion. She does nto make urine at baseline. She was discharged one week prior from this hospital after weakness, nausea, vomiting, and diarrhea. She was discharged on nicardipine at that point, so it is unclear why she has no prescription for it. Also admits to not taking her Losartan today. 03/16/17 15:52 <Rylee Caballero - Last Filed: 03/16/17 22:40> <Patricia Dumas - Last Filed: 03/16/17 22:58> - General Chief Complaint: Blood Pressure Problem Stated Complaint: ELEVATED BP Time Seen by Provider: 03/16/17 15:23 Past History - Past Medical History Anemia: Yes Asthma: No Cancer: No Cardiac Disorders: No CVA: No COPD: No CHF: No DVT: No Diabetes: Yes (15 yrs Insulin dependent) Dialysis: Yes (M/W/) Disorders: (ESRD for 6 yrs [facility] -w-) HTN: Yes Hypercholesterolemia: No Kidney Stones: (ESRD, Dialysis Mon, W, F, Left arm Fistula) Seizures: Yes (Several yrs ago, no medication) Thyroid Disease: No - Surgical History Abdominal Surgery: No Cardiac Surgery: Yes (myxoma removed 2013) Cholecystectomy: Yes Lung Surgery: No Neurologic Surgery: No Orthopedic Surgery: Yes - Immunization History Immunization Up to Date: Yes - Suicide/Smoking/Psychosocial Hx Smoking Status: No Smoking History: Never smoked Have you smoked in the past 12 months: No Number of Cigarettes Smoked Daily: 10 Hx Alcohol Use: No Drug/Substance Use Hx: No Substance Use Type: None Hx Substance Use Treatment: No <Rylee Caballero - Last Filed: 03/16/17 22:40> <Patricia Dumas - Last Filed: 03/16/17 22:58> - Past Medical History Allergies/Adverse Reactions: Allergies Allergy/AdvReac Type Severity Reaction Status Date / Time No Known Drug Allergies Allergy Verified 03/16/17 14:34 Home Medications: Ambulatory Orders Gabapentin 200 mg PO TID 03/11/16 Sevelamer Carbonate [Renvela -] 1,600 mg PO TIDCM #60 tab 07/14/16 Acetaminophen [Tylenol .Regular Strength -] 325 mg PO Q6H PRN #0 tablet Insulin Lispro [Humalog Kwikpen U-100] 0 unit SQ TID 12/21/16 Losartan Potassium [Cozaar -] 100 mg PO DAILY 12/21/16 Insulin (Levemir) [Levemir Flexpen -] 15 units SQ BID #5 pen 12/24/16 Clonidine HCl [Catapres -] 0.3 mg PO TID tablet 12/26/16 Labetalol HCl [Normodyne -] 400 mg PO TID #60 tablet 12/26/16 Hydralazine HCl [Apresoline -] 50 mg PO TID #60 tablet 01/12/17 Apixaban [Eliquis -] 2.5 mg PO BID #60 tablet 03/06/17 Buspirone HCl [Buspar -] 10 mg PO TID #90 tablet 03/06/17 *Physical Exam - Vital Signs Last Vital Signs Temp Pulse Resp BP Pulse Ox 97.9 F 78 19 191/104 100 03/16/17 14:34 03/16/17 14:34 03/16/17 14:34 03/16/17 14:34 03/16/17 14:34 <Rylee Caballero - Last Filed: 03/16/17 22:40> - Vital Signs Last Vital Signs Temp Pulse Resp BP Pulse Ox 97.9 F 88 18 174/105 95 03/16/17 14:34 03/16/17 21:19 03/16/17 21:19 03/16/17 21:19 03/16/17 21:19 <Patricia Dumas - Last Filed: 03/16/17 22:58> ED Treatment Course - LABORATORY CBC & Chemistry Diagram: 03/16/17 16:00 03/16/17 16:00 <Ali,Khameinei - Last Filed: 03/16/17 22:40> - LABORATORY CBC & Chemistry Diagram: 03/16/17 16:00 03/16/17 16:00 - ADDITIONAL ORDERS Additional order review: Laboratory Results 03/16/17 03/16/17 03/16/17 17:00 16:00 16:00 PT with INR 13.70 H INR 1.21 H Sodium Potassium Chloride Carbon Dioxide Anion Gap BUN Creatinine Creat Clearance w eGFR Random Glucose Calcium Total Bilirubin AST ALT Alkaline Phosphatase Creatine Kinase Troponin I Total Protein Albumin Serum , Qual Negative Acetone, Qual Trace H 03/16/17 03/16/17 16:00 16:00 PT with INR INR Sodium 130 L Potassium 5.1 D Chloride 94 L Carbon Dioxide 21 D Anion Gap 15 BUN 45 H D Creatinine 5.2 H D Creat Clearance w eGFR 9.92 Random Glucose 696 H* D Calcium 8.1 L Total Bilirubin 0.8 D AST 117 H D ALT 60 D Alkaline Phosphatase 1813 H D Creatine Kinase 113 Troponin I < 0.02 Total Protein 8.4 H Albumin 3.3 L D Serum , Qual Acetone, Qual 03/16/17 16:00 RBC 3.81 D MCV 89.0 MCHC 30.9 L RDW 17.3 H MPV 9.3 Neutrophils % 82.7 Lymphocytes % 6.0 L D Monocytes % 8.3 Eosinophils % 1.8 Basophils % 1.2 - Medications Given in the ED: ED Medications Discontinued Medications Generic Name Dose Route Start Last Admin Trade Name Freq PRN Reason Stop Dose Admin Clonidine 0.3 mg 03/16/17 17:04 03/16/17 17:40 Catapres - PO 03/16/17 17:05 0.3 mg ONCE ONE Administration Hydralazine HCl 10 mg 03/16/17 20:15 03/16/17 20:31 Apresoline Injection - IVPUSH 03/16/17 20:16 10 mg ONCE ONE Administration Insulin Detemir 15 units 03/16/17 21:24 03/16/17 21:32 Levemir Vial SQ 03/16/17 21:25 15 units ONCE ONE Administration Insulin Human Regular 10 units 03/16/17 17:44 03/16/17 17:59 Novolin R Vial *For Ivpush Or Iv Drip Only* IVPUSH 03/16/17 17:45 10 units ONCE ONE Administration Insulin Human Regular 10 units 03/16/17 19:42 03/16/17 20:14 Novolin R Vial *For Ivpush Or Iv Drip Only* IVPUSH 03/16/17 19:43 10 units ONCE ONE Administration Insulin Human Regular 10 units 03/16/17 21:23 03/16/17 21:31 Novolin R Vial *For Ivpush Or Iv Drip Only* IVPUSH 03/16/17 21:24 10 units ONCE ONE Administration Labetalol HCl 10 mg 03/16/17 15:55 03/16/17 16:10 Normodyne Injection - IVPUSH 03/16/17 15:56 10 mg ONCE ONE Administration Labetalol HCl 10 mg 03/16/17 19:27 03/16/17 19:32 Normodyne Injection - IVPUSH 03/16/17 19:28 10 mg ONCE ONE Administration Morphine Sulfate 4 mg 03/16/17 15:56 03/16/17 16:10 Morphine Injection - IVPUSH 03/16/17 15:57 4 mg ONCE ONE Administration Nifedipine 90 mg 03/16/17 18:12 03/16/17 18:28 Procardia Xl - PO 03/16/17 18:13 90 mg ONCE ONE Administration Oxycodone HCl 10 mg 03/16/17 21:08 03/16/17 21:19 Roxicodone - PO 03/16/17 21:09 10 mg ONCE ONE Administration Sodium Chloride 1,000 ml 03/16/17 17:49 03/16/17 17:59 Normal Saline - IV 03/16/17 17:50 1,000 ml ONCE ONE Administration Sodium Chloride 1,000 ml 03/16/17 21:57 03/16/17 22:24 Normal Saline - IV 03/16/17 21:58 Not Given ONCE ONE <Patricia Dumas - Last Filed: 03/16/17 22:58> *DC/Admit/Observation/Transfer - Discharge Dispostion Admit: No <Rylee Caballero - Last Filed: 03/16/17 22:40> <Patricia Dumas - Last Filed: 03/16/17 22:58> Diagnosis at time of Disposition: Hypertensive urgency, Hyperglycemia - Discharge Dispostion Disposition: HOME Condition at time of disposition: Improved - Referrals Referrals: Edna Calero MD [Primary Care Provider] - - Patient Instructions Printed Discharge Instructions: DI for High Blood Pressure Additional Instructions: Your pressure was very high when you came to our Ed and your sugar was very high too. You did not take your losartan and did not take your insulin. Please take both to avoid coming into the hospital. If your sugars or pressures are still elevated despite your medicine usage then come to the ED. - Post Discharge Activity Forms/Work/School Notes: Back to Work
[2017-03-16] MEDS ORDERED: LABETALOL HCL 5 MG/1 ML (100MG/20 ML VIAL) IVPUSH ONE ×2 (15:55→19:27)
[2017-03-16] MEDS ORDERED: morphine CARPU-JECT 4 MG/1 ML DISP.SYRIN IVPUSH ONE (15:56)
[2017-03-16] MEDS ORDERED: LABETALOL HCL 5 MG/1 ML (200MG/40ML VIAL) IVPB ONE (16:05)
[2017-03-16] MEDS ORDERED: morphine SULFATE 4 MG/ML VIAL ONE (16:05)
[2017-03-16 16:21] LABS: BASOPHIL 1.2 % (0-2.0); EOSINOPHIL 1.8 % (0-4.5); MCH 27.6 pg (25.7-33.7); MCHC 30.9 g/dl (32.0-36.0); MEAN PLT VOLUME 9.3 fl (7.5-11.1); NEUTROPHILS 82.7 % (42.8-82.8); PLATELET COUNT 298 K/MM3 (134-434); RDW 17.3 % (11.6-15.6); WHITE BLOOD COUNT 6.4 K/mm3 (4.0-10.0)
[2017-03-16 16:34] LABS: ALBUMIN 3.3 g/dl (3.4-5.0); ANION GAP 15 (8-16); BILIRUBIN,TOTAL 0.8 mg/dL (0.2-1.0); CALCIUM 8.1 mg/dL (8.5-10.1); CO2 21 mmol/L (21-32); CREATININE 5.2 mg/dL (0.55-1.02); SGOT/AST 117 U/L (15-37); SGPT/ALT 60 U/L (12-78); TOT PROT 8.4 g/dl (6.4-8.2)
[2017-03-16 16:35] LABS: CPK 113 IU/L (26-192); INR 1.21 (0.82-1.09); PROTHROMBIN TIME (PATIENT) 13.7 SEC (9.98-11.88); TROPONIN I < 0.02 ng/ml (0.00-0.05)
[2017-03-16 16:53] LABS: ALK PHOS 1813 U/L (45-117)
[2017-03-16 16:54] LABS: GLUCOSE,RANDOM 696 mg/dL (74-106)
[2017-03-16] MEDS ORDERED: cloNIDine HCL 0.1 MG TABLET PO ONE (17:04)
--- NOTE | 2017-03-16 17:17 | PDOC ---
Attending Attestation - Resident Resident Name: Rylee Caballero - ED Attending Attestation I have performed the following: I have examined & evaluated the patient, The case was reviewed & discussed with the resident, I agree w/resident's findings & plan, Exceptions are as noted - HPI HPI: 03/16/17 17:14 26-year-old female well known to this institution has history of hypertension, end-stage renal disease, and some dependent diabetes sent by [facility] after blood pressure was unable to obtain a reading. Pt has no complaints whatsoever and does not want to be here. Admits to some medication noncompliance, of note missed her morning clonidine dose and took it at 11am instead. - Physicial Exam PE: 03/16/17 17:15 Elevated blood pressure, vitals otherwise normal Well-appearing, seated in stretcher speaking full sentences drinking juice Agree with remainder of exam, neurologically intact - Medical Decision Making 03/16/17 17:16 Patient seen and evaluated with the resident. I agree with the overall evaluation, assessment, and management with the following summary of visit: 26-year-old female with difficult to control hypertension and some medication noncompliance presents with elevated blood pressures, otherwise asymptomatic without signs or symptoms of end organ injury on exam. Labs sent, baseline metabolic derangement with hyperglycemia but normal AG Blood pressure control with labetalol and clonidine Reassess, if remains asymptomatic and blood pressure better controlled, consider discharge Heart Score/ECG Review #1 ECG reviewed & interpreted by me at: 16:38 General ECG Interpretation: Sinus Rhythm, Normal Rate (80), Normal Intervals ( qtc 486), No acute ischemic changes
[2017-03-16] MEDS ORDERED: cloNIDine HCL 0.1 MG TABLET ONE (17:35)
[2017-03-16] MEDS ORDERED: INSULIN REGULAR HUMAN 100 UNITS/ML *VIAL IVPUSH ONE ×3 (17:44→21:23)
[2017-03-16] MEDS ORDERED: SODIUM CHLORIDE 0.9% 1000 ML INFUS.BAG IV ONE ×2 (17:49→21:57)
[2017-03-16] MEDS ORDERED: INSULIN REGULAR HUMAN 100 UNITS/ML *VIAL ONE ×3 (17:55→21:28)
[2017-03-16] MEDS ORDERED: NIFEdipine E.R. 90 MG TABLET (FP) PO ONE (18:12)
[2017-03-16] MEDS ORDERED: hydrALAZINE HCL 20 MG/ML VIAL IVPUSH ONE (20:15)
[2017-03-16] MEDS ORDERED: hydrALAZINE HCL 20 MG/ML VIAL ONE (20:24)
[2017-03-16] MEDS ORDERED: oxyCODONE HCL 5 MG TABLET PO ONE (21:08)
[2017-03-16] MEDS ORDERED: oxyCODONE HCL 5 MG TABLET ONE (21:14)
[2017-03-16 21:20] VITALS: PULSE 88
[2017-03-16] MEDS ORDERED: INSULIN DETEMIR 100 UNITS/ML MDV SQ ONE ×2 (21:24→21:28)
[2017-03-16 22:47] LABS: ALBUMIN 3.2 g/dl (3.4-5.0); ANION GAP 13 (8-16); BILIRUBIN,TOTAL 0.8 mg/dL (0.2-1.0); CALCIUM 7.7 mg/dL (8.5-10.1); CO2 20 mmol/L (21-32); CREATININE 5.4 mg/dL (0.55-1.02); SGOT/AST 72 U/L (15-37); SGPT/ALT 53 U/L (12-78); TOT PROT 8.3 g/dl (6.4-8.2)
[2017-03-16] MEDS ORDERED: HEMOQUE TEST 1 EACH EACH ONE (22:48)
[2017-03-16 22:59] LABS: ALK PHOS 1849 U/L (45-117); GLUCOSE,RANDOM 377 mg/dL (74-106)
[2017-03-16 23:01] VITALS: BP 143/96
--- NOTE | 2017-03-17 14:07 | EKG ---
Test Reason : Blood Pressure : / mmHG Vent. Rate : 080 BPM Atrial Rate : 080 BPM P-R Int : 182 ms QRS Dur : 084 ms QT Int : 422 ms P-R-T Axes : 034 015 057 degrees QTc Int : 486 ms NORMAL SINUS RHYTHM POSSIBLE ANTERIOR INFARCT (CITED ON OR BEFORE 04-MAR-2017) ABNORMAL ECG WHEN COMPARED WITH ECG OF 04-MAR-2017 09:12, NO SIGNIFICANT CHANGE WAS FOUND Confirmed by OLIVA FERNANDEZ MD ([id number]) on 03/17/2017 2:06:55 PM Referred By: Confirmed By:OLIVA FERNANDEZ MD
== END 2017-03-16 23:01 | disposition home or self-care (01) ==
LOC: JER 14:02
PROC: 3E033NZ Introduction of Analgesics, Hypnotics, Sedatives into Peripheral Vein, Percutaneous Approach (ICD-10-PCS; principal; 2017-03-16)
PROC: 3E033GC Introduction of Other Therapeutic Substance into Peripheral Vein, Percutaneous Approach (ICD-10-PCS; 2017-03-16)
PROC: 3E013VG Introduction of Insulin into Subcutaneous Tissue, Percutaneous Approach (ICD-10-PCS; 2017-03-16)
PROC: 3E033VG Introduction of Insulin into Peripheral Vein, Percutaneous Approach (ICD-10-PCS; 2017-03-16)
PROC: 3E033VG Introduction of Insulin into Peripheral Vein, Percutaneous Approach (ICD-10-PCS; 2017-03-16)
DX: I16.0 Hypertensive urgency (principal); I12.0 Hypertensive chronic kidney disease with stage 5 chronic kidney disease or end stage renal disease; E10.22 Type 1 diabetes mellitus with diabetic chronic kidney disease; E10.65 Type 1 diabetes mellitus with hyperglycemia; N18.6 End stage renal disease; N17.8 Other acute kidney failure; Z99.2 Dependence on renal dialysis; Z79.4 Long term (current) use of insulin; Z99.81 Dependence on supplemental oxygen; Z86.69 Personal history of other diseases of the nervous system and sense organs
CPT/HCPCS: 36415; 80053; 82009; 82550; 84484; 84703; 85025; 85610; 93005; 93010; 99284-25

== ENCOUNTER 2017-04-12 14:49 | Inpatient (IN) | payer OTHER ==
[2017-04-12 15:17] VITALS: BMI 23.3
--- NOTE | 2017-04-12 15:18 | PDOC ---
Rapid Medical Evaluation Time Seen by Provider: 04/12/17 15:13 Medical Evaluation: Allergies Allergy/AdvReac Type Severity Reaction Status Date / Time No Known Drug Allergies Allergy Verified 04/12/17 15:14 04/12/17 15:15 Pt presents to the ED: headaches x 1 week, weakness x 3 days, + nausea x 1 day, last HD wednesday Pt on brief exam: VSS, Pt ordered for: cbc, comp, Pt to proceed to the ED Discharge Disposition - Diagnosis Weakness - Referrals Referrals: Edna Calero MD [Primary Care Provider] - - Patient Instructions - Post Discharge Activity
[2017-04-12 15:53] LABS: BASO % 0.8 % (0-2.0); EOS % 1.5 % (0-4.5); HEMATOCRIT 30.4 % (32.4-45.2); HEMOGLOBIN 9.7 GM/dL (10.7-15.3); LYMPH % 7.5 % (8-40); MCH 27.4 pg (25.7-33.7); MCHC 31.9 g/dl (32.0-36.0); MEAN CELL VOLUME 85.9 fl (80-96); MEAN PLT VOLUME 9.4 fl (7.5-11.1); MONO % 13.5 % (3.8-10.2); NEUT % 76.7 % (42.8-82.8); PLATELET COUNT 299 K/MM3 (134-434); RBC 3.54 M/mm3 (3.60-5.2); RDW 16.9 % (11.6-15.6); WHITE BLOOD COUNT 8.9 K/mm3 (4.0-10.0)
[2017-04-12 16:21] LABS: ALBUMIN 3.2 g/dl (3.4-5.0); ANION GAP 17 (8-16); BILIRUBIN,TOTAL 0.9 mg/dL (0.2-1.0); BLOOD UREA NITROGEN 58 mg/dL (7-18); CALCIUM 8.3 mg/dL (8.5-10.1); CHLORIDE 94 mmol/L (98-107); CO2 18 mmol/L (21-32); CREATININE 5.8 mg/dL (0.55-1.02); GLUCOSE,RANDOM 172 mg/dL (74-106); MAGNESIUM 2.2 mg/dL (1.8-2.4); POTASSIUM 4.9 mmol/L (3.5-5.1); SGOT/AST 76 U/L (15-37); SGPT/ALT 58 U/L (12-78); SODIUM 129 mmol/L (136-145); TOT PROT 8.5 g/dl (6.4-8.2)
[2017-04-12] MEDS ORDERED: morphine CARPU-JECT 4 MG/1 ML DISP.SYRIN IVPUSH ONE ×2 (16:29→20:52)
[2017-04-12 16:35] LABS: ALK PHOS 1533 U/L (45-117)
[2017-04-12 17:00] LABS: VENOUS PC02 44.8 mmHg (38-52); VENOUS PH 7.28 (7.32-7.42)
[2017-04-12 17:01] LABS: VENOUS PO2 30.9 mmHg (28-48)
[2017-04-12] MEDS ORDERED: morphine CARPU-JECT 10 MG/1 ML DISP.SYRIN ONE ×2 (17:03→21:06)
--- NOTE | 2017-04-12 17:22 | PDOC ---
History of Present Illness - General History Source: Patient, Old Records Exam Limitations: No Limitations - History of Present Illness Initial Comments: 04/12/17 18:10 The patient is a 26 year old female, with a significant past medical history of hypertension, diabetes, end-stage renal disease (on dialysis Wednesday, Wednesday, Wednesday),on home O2, pulmonary embolism who presents to the emergency department with multiple complaints for the past week.Patient reports pain to the L hip and L thigh, exacerbated when bearing weight and walking. Patient reports diarrhea (nonbloody/nonmucoid) for the past several days. Patient also notes frontal tension headache with no associated symptoms. Due to all these complaints, patient has been increasingly weak and presents to the ED for further evaluation. Patient denies chest pain or dizziness. Patient denies fever, chills, abdominal pain, nausea, vomit, or constipation. Patient denies dysuria, frequency, urgency or hematuria. Patient denies sick contacts or recent travel. Allergies: NKA Past surgical history: None Social history: None PCP: Dr. Abdias Bishop <Nicole Strong - Last Filed: 04/12/17 18:10> - General History Source: Patient, Old Records Exam Limitations: No Limitations <Jose Rhodes - Last Filed: 04/12/17 19:06> - General Chief Complaint: Weakness Stated Complaint: SICK/LEFT LEG PAIN Time Seen by Provider: 04/12/17 15:13 Past History <Nicole Strong - Last Filed: 04/12/17 18:10> - Past Medical History Anemia: Yes Asthma: No Cancer: No Cardiac Disorders: No CVA: No COPD: No CHF: No DVT: No Diabetes: Yes (15 yrs Insulin dependent) Dialysis: Yes (M//) Disorders: (ESRD for 6 yrs [facility] -w-) HTN: Yes Hypercholesterolemia: No Kidney Stones: (ESRD, Dialysis Wed, , , Left arm Fistula) Seizures: Yes (Several yrs ago, no medication) Thyroid Disease: No - Surgical History Abdominal Surgery: No Cardiac Surgery: Yes (myxoma removed 2013) Cholecystectomy: Yes Lung Surgery: No Neurologic Surgery: No Orthopedic Surgery: Yes - Immunization History Immunization Up to Date: Yes - Suicide/Smoking/Psychosocial Hx Smoking Status: No Smoking History: Never smoked Have you smoked in the past 12 months: No Number of Cigarettes Smoked Daily: 10 Information on smoking cessation initiated: No Hx Alcohol Use: No Drug/Substance Use Hx: No Substance Use Type: None Hx Substance Use Treatment: No <Jose Rhodes - Last Filed: 04/12/17 19:06> - Past Medical History Allergies/Adverse Reactions: Allergies Allergy/AdvReac Type Severity Reaction Status Date / Time No Known Drug Allergies Allergy Verified 04/12/17 15:14 Home Medications: Ambulatory Orders Gabapentin 200 mg PO TID 03/11/16 Sevelamer Carbonate [Renvela -] 1,600 mg PO TIDCM #60 tab 07/14/16 Acetaminophen [Tylenol .Regular Strength -] 325 mg PO Q6H PRN #0 tablet Insulin Lispro [Humalog Kwikpen U-100] 0 unit SQ TID 12/21/16 Losartan Potassium [Cozaar -] 100 mg PO DAILY 12/21/16 Insulin (Levemir) [Levemir Flexpen -] 15 units SQ BID #5 pen 12/24/16 Clonidine HCl [Catapres -] 0.3 mg PO TID tablet 12/26/16 Labetalol HCl [Normodyne -] 400 mg PO TID #60 tablet 12/26/16 Hydralazine HCl [Apresoline -] 50 mg PO TID #60 tablet 01/12/17 Apixaban [Eliquis -] 2.5 mg PO BID #60 tablet 03/06/17 Buspirone HCl [Buspar -] 10 mg PO TID #90 tablet 03/06/17 Review of Systems - Review of Systems Able to Perform ROS?: Yes Comments:: 04/12/17 18:10 GENERAL/CONSTITUTIONAL: No fever or chills. +generalized weakness. HEAD, EYES, EARS, NOSE AND THROAT: No change in vision. No ear pain or discharge. No sore throat. CARDIOVASCULAR: No chest pain. +shortness of breath. RESPIRATORY: No cough, wheezing, or hemoptysis. GASTROINTESTINAL: + diarrhea. No vomiting, or constipation. GENITOURINARY: No dysuria, frequency, or change in urination. MUSCULOSKELETAL: No joint or muscle swelling or pain. No neck or back pain. SKIN: No rash NEUROLOGIC: + headache. No vertigo, loss of consciousness, or change in strength /sensation. ENDOCRINE: No increased thirst. No abnormal weight change. HEMATOLOGIC/LYMPHATIC: No anemia, easy bleeding, or history of blood clots. ALLERGIC/IMMUNOLOGIC: No hives or skin allergy. <Nicole Strong - Last Filed: 04/12/17 18:10> *Physical Exam - Vital Signs Last Vital Signs Temp Pulse Resp BP Pulse Ox 97.7 F 79 16 171/105 99 04/12/17 15:14 04/12/17 15:14 04/12/17 15:14 04/12/17 15:14 04/12/17 16:20 - Physical Exam Comments: 04/12/17 18:10 GENERAL: Awake, alert, and fully oriented, in no acute distress HEAD: No signs of trauma EYES: PERRLA, EOMI, sclera anicteric, conjunctiva clear ENT: Auricles normal inspection, hearing grossly normal, nares patent, oropharynx clear without exudates. Moist mucosa NECK: Normal ROM, supple, no lymphadenopathy, JVD, or masses LUNGS: Breath sounds equal, clear to auscultation bilaterally. No wheezes, and no crackles HEART: Regular rate and rhythm, normal S1 and S2, no murmurs, rubs or gallops ABDOMEN: Soft, nontender, normoactive bowel sounds. No guarding, no rebound. No masses EXTREMITIES: Normal range of motion. No clubbing or cyanosis. No cords, erythema , or tenderness. 3+ pitting edema.+ L lateral hip tenderness to palpation. +LUE fistula with thrill. NEUROLOGICAL: Cranial nerves II through XII grossly intact. Normal speech, normal gait SKIN: Warm, Dry, normal turgor, no rashes or lesions noted. <Nicole Strong - Last Filed: 04/12/17 18:10> - Vital Signs Last Vital Signs Temp Pulse Resp BP Pulse Ox 97.7 F 79 16 171/105 99 04/12/17 15:14 04/12/17 15:14 04/12/17 15:14 04/12/17 15:14 04/12/17 16:20 <Jose Rhodes - Last Filed: 04/12/17 19:06> Heart Score/ECG Review #1 ECG reviewed & interpreted by me at: 17:00 04/12/17 17:24 NSR 77, no std/nai, normal axis, normal intervals, ?Q wave V3, QTC 461 msec <Jose Rhodes - Last Filed: 04/12/17 19:06> ED Treatment Course - LABORATORY CBC & Chemistry Diagram: 04/12/17 15:35 04/12/17 15:35 - ADDITIONAL ORDERS Additional order review: Laboratory Results 04/12/17 04/12/17 04/12/17 16:48 16:48 16:48 PT with INR INR PTT (Actin FS) VBG pH 7.28 L POC VBG pCO2 44.8 POC VBG pO2 30.9 D Mixed VBG HCO3 20.4 Sodium Potassium Chloride Carbon Dioxide Anion Gap BUN Creatinine Creat Clearance w eGFR Random Glucose Lactic Acid 1.8 Calcium Phosphorus 5.8 H D Magnesium Total Bilirubin AST ALT Alkaline Phosphatase Creatine Kinase 145 Troponin I < 0.02 B-Natriuretic Peptide 14968.79 H Total Protein Albumin 04/12/17 04/12/17 16:48 15:35 PT with INR 12.80 H INR 1.13 PTT (Actin FS) 30.6 D VBG pH POC VBG pCO2 POC VBG pO2 Mixed VBG HCO3 Sodium 129 L Potassium 4.9 D Chloride 94 L Carbon Dioxide 18 L Anion Gap 17 H BUN 58 H D Creatinine 5.8 H Creat Clearance w eGFR 8.75 Random Glucose 172 H D Lactic Acid Calcium 8.3 L Phosphorus Magnesium 2.2 D Total Bilirubin 0.9 AST 76 H ALT 58 Alkaline Phosphatase 1533 H Creatine Kinase Troponin I B-Natriuretic Peptide Total Protein 8.5 H Albumin 3.2 L 04/12/17 15:35 RBC 3.54 L MCV 85.9 MCHC 31.9 L RDW 16.9 H MPV 9.4 Neutrophils % 76.7 Lymphocytes % 7.5 L D Monocytes % 13.5 H Eosinophils % 1.5 Basophils % 0.8 - Medications Given in the ED: ED Medications Discontinued Medications Generic Name Dose Route Start Last Admin Trade Name Freq PRN Reason Stop Dose Admin Morphine Sulfate 4 mg 04/12/17 16:29 04/12/17 17:15 Morphine Injection - IVPUSH 04/12/17 16:30 4 mg ONCE ONE Administration <Nicole Strong - Last Filed: 04/12/17 18:10> - LABORATORY CBC & Chemistry Diagram: 04/12/17 15:35 04/12/17 15:35 - ADDITIONAL ORDERS Additional order review: Laboratory Results 04/12/17 04/12/17 16:48 15:35 VBG pH 7.28 L POC VBG pCO2 44.8 POC VBG pO2 30.9 D Mixed VBG HCO3 20.4 Sodium 129 L Potassium 4.9 D Chloride 94 L Carbon Dioxide 18 L Anion Gap 17 H BUN 58 H D Creatinine 5.8 H Creat Clearance w eGFR 8.75 Random Glucose 172 H D Calcium 8.3 L Magnesium 2.2 D Total Bilirubin 0.9 AST 76 H ALT 58 Alkaline Phosphatase 1533 H Total Protein 8.5 H Albumin 3.2 L 04/12/17 15:35 RBC 3.54 L MCV 85.9 MCHC 31.9 L RDW 16.9 H MPV 9.4 Neutrophils % 76.7 Lymphocytes % 7.5 L D Monocytes % 13.5 H Eosinophils % 1.5 Basophils % 0.8 - RADIOLOGY Radiology Studies Ordered: Category Date Time Status HEAD CT WITHOUT CONTRAST [CT] Stat CT Scan 04/12/17 16:28 Ordered CHEST X-RAY PORTABLE* [RAD] Stat Radiology 04/12/17 16:28 Ordered HIP & PELVIS-LEFT [RAD] Stat Radiology 04/12/17 16:28 Ordered DUPLEX VASCUL US-2LEGS [US] Stat Ultrasound 04/12/17 16:28 Ordered <Jose Rhodes - Last Filed: 04/12/17 19:06> Medical Decision Making - Medical Decision Making 04/12/17 17:22 A portion of this note was documented by scribe services under my direction. I have reviewed the details of the note, within reason, and agree with the documentation with the following case summary and management plan written by me. Patient treated in the ED. Nursing notes are reviewed and incorporated into the medical decision-making. Vital signs reviewed. Peripheral IV access obtained by the nurse, laboratory studies are drawn and sent, reviewed and interpreted by myself. Vital Signs Temp Pulse Resp BP Pulse Ox 97.7 F 79 16 171/105 99 04/12/17 15:14 04/12/17 15:14 04/12/17 15:14 04/12/17 15:14 04/12/17 16:20 26-year-old female with past medical history of hypertension, diabetes, end- stage renal disease on dialysis Wednesday, Wednesday, Wednesday, home oxygen, pulmonary embolism presents to the emergency department for left hip, left thigh pain and shortness of breath and headache and diarrhea for several days. Patient reports around New Year's time, patient started developing intermittent symptoms of these. Reports a frontal tension-like headache. Has been endorsing some loose stools, left hip pain but denies any trauma. Patient overall generally she feels weak. The patient overall appears deconditioned and weak. It is unclear what the etiology is at this moment. However, the left lower extremity pain, we'll obtain a left hip x-ray in addition to duplex of the lower extremities to rule out DVT. We'll also obtain blood work to evaluate for infection, metabolic disarray. Lactic acid. Chest x-ray. Given her headache, also obtain head CT. Given her overall appearance and clinical condition, patient should be admitted to the hospital for further evaluation. 04/12/17 19:06 Case signed out to [facility] ED attending Dr. Rojas. <Jose Rhodes - Last Filed: 04/12/17 19:06> *DC/Admit/Observation/Transfer - Attestations Scribe Attestion: 04/12/17 18:11 Documentation prepared by Nicole Strong, acting as medical information officer for Jose Rhodse MD <Nicole Strong - Last Filed: 04/12/17 18:10> <Jose Rhodes - Last Filed: 04/12/17 19:06> Diagnosis at time of Disposition: Weakness - Referrals Referrals: Edna Calero MD [Primary Care Provider] - - Patient Instructions - Post Discharge Activity
[2017-04-12 17:36] LABS: INR 1.13 (0.82-1.09); PROTHROMBIN TIME (PATIENT) 12.8 SEC (9.98-11.88)
[2017-04-12 17:38] LABS: ACTIVATED PTT 30.6 SECONDS (26.9-34.4)
[2017-04-12 17:47] LABS: PHOSPHOROUS 5.8 mg/dL (2.5-4.9)
[2017-04-12 18:02] LABS: N-TERMINAL BNP 59338.79 pg/ml (5-125)
[2017-04-12 19:56] LABS: ACETONE SERUM NEGATIVE (NEGATIVE)
--- NOTE | 2017-04-12 20:54 | PN ---
Teaching Attending Note Name of Resident: Hamilton Bess ATTENDING PHYSICIAN STATEMENT I saw and evaluated the patient. I reviewed the resident's note and discussed the case with the resident. I agree with the resident's findings and plan as documented. SUBJECTIVE: 26 F with pmhx. of ESRD (M/W/F), HTN, IDDM, Hx. of DVT, recent PE (On Coumadin) , on home 02and anemia. She presents with L hip pain and L. thigh which is worsened with walking and bearing weight. Also, with non-bloody, watery diarrhea. Has frontal headache. No chest pain, pressure or shortness of breath, OBJECTIVE: Physical: VS: Vital Signs Period Temp Pulse Resp BP Sys/Ames Pulse Ox Last 24 Hr 97.7 F 79 16 171/105 99-99 GEN: NAD, resting in bed, AA0X3 HEENT: NCAT, PERRL, Throat without erythema or exudates CARD: RRR S1, S2 RESP: CTAB ABD: BSx4, NTD to palpation EXT: +3 Pitting edema, bilateral and equal. CBCD WBC 8.9 K/mm3 (4.0-10.0) D 04/12/17 15:35 RBC 3.54 M/mm3 (3.60-5.2) L 04/12/17 15:35 Hgb 9.7 GM/dL (10.7-15.3) L 04/12/17 15:35 Hct 30.4 % (32.4-45.2) L 04/12/17 15:35 MCV 85.9 fl (80-96) 04/12/17 15:35 MCHC 31.9 g/dl (32.0-36.0) L 04/12/17 15:35 RDW 16.9 % (11.6-15.6) H 04/12/17 15:35 Plt Count 299 K/MM3 (134-434) 04/12/17 15:35 MPV 9.4 fl (7.5-11.1) 04/12/17 15:35 CMP Sodium 129 mmol/L (136-145) L 04/12/17 15:35 Potassium 4.9 mmol/L (3.5-5.1) D 04/12/17 15:35 Chloride 94 mmol/L (98-107) L 04/12/17 15:35 Carbon Dioxide 18 mmol/L (21-32) L 04/12/17 15:35 Anion Gap 17 (8-16) H 04/12/17 15:35 BUN 58 mg/dL (7-18) H D 04/12/17 15:35 Creatinine 5.8 mg/dL (0.55-1.02) H 04/12/17 15:35 Creat Clearance w eGFR 8.75 (>60) 04/12/17 15:35 Random Glucose 172 mg/dL (74-106) H D 04/12/17 15:35 Calcium 8.3 mg/dL (8.5-10.1) L 04/12/17 15:35 Total Bilirubin 0.9 mg/dL (0.2-1.0) 04/12/17 15:35 AST 76 U/L (15-37) H 04/12/17 15:35 ALT 58 U/L (12-78) 04/12/17 15:35 Alkaline Phosphatase 1533 U/L (45-117) H 04/12/17 15:35 Total Protein 8.5 g/dl (6.4-8.2) H 04/12/17 15:35 Albumin 3.2 g/dl (3.4-5.0) L 04/12/17 15:35 CARDIAC ENZYMES Creatine Kinase 145 IU/L (26-192) 04/12/17 16:48 Troponin I < 0.02 ng/ml (0.00-0.05) 04/12/17 16:48 EKG: NSR 77, NO STD-E, Q wave V3, QtC 461 CT HEAD- Neg. for acute process DUPLEX- NO DVT in either leg. 3.4x3x0,7 R. Polipteal fossa cyst Ambulatory Orders Gabapentin 200 mg PO TID 03/11/16 Sevelamer Carbonate [Renvela -] 1,600 mg PO TIDCM #60 tab 07/14/16 Acetaminophen [Tylenol .Regular Strength -] 325 mg PO Q6H PRN #0 tablet Insulin Lispro [Humalog Kwikpen U-100] 0 unit SQ TID 12/21/16 Losartan Potassium [Cozaar -] 100 mg PO DAILY 12/21/16 Insulin (Levemir) [Levemir Flexpen -] 15 units SQ BID #5 pen 12/24/16 Clonidine HCl [Catapres -] 0.3 mg PO TID tablet 12/26/16 Labetalol HCl [Normodyne -] 400 mg PO TID #60 tablet 12/26/16 Hydralazine HCl [Apresoline -] 50 mg PO TID #60 tablet 01/12/17 Apixaban [Eliquis -] 2.5 mg PO BID #60 tablet 03/06/17 Buspirone HCl [Buspar -] 10 mg PO TID #90 tablet 03/06/17 ASSESSMENT AND PLAN: 26 F with pmhx. of HTN, DM, PE ESRD on HD M/W/, who presents with left hip and thigh pain, diarrhea and shortness of breath, she missed HD on Wednesday 1.) Metabolic Acidosis - Most likely due to uremia - HD in AM - Repeat BMP post 2.) Diarrhea - Most likely Acute Gastroenteritis, less likely C.Diff - Stool Studies, Chl C.DiffT&A 3.) Hyponatremia - Urine studies - Fluid restrict as pt. is overloaded 4.) Uncontrolled Hypertension - Resume Home meds 5.) Acute Diastolic Heart Failure - LAst Echo . with perserved EF - Can consider repeating - HD in Am - C/W Home meds - Trend trops/ekg 6.) Hx.of PE - C/W Eliquis 7.) ESRD on HD - C/W home meds, including Renvela 8.) Chronic L. Hip Pain - FU Hip Xray Place in Med-Tele
--- NOTE | 2017-04-12 20:54 | PDOC ---
*Physical Exam - Vital Signs Last Vital Signs Temp Pulse Resp BP Pulse Ox 97.7 F 79 16 171/105 99 04/12/17 15:14 04/12/17 15:14 04/12/17 15:14 04/12/17 15:14 04/12/17 16:20 - Physical Exam Comments: 04/12/17 20:52 aaox3, sitting up. eating dinner. moving all extremities speaking in full sentences ED Treatment Course - LABORATORY CBC & Chemistry Diagram: 04/12/17 15:35 04/12/17 15:35 - ADDITIONAL ORDERS Additional order review: Laboratory Results 04/12/17 04/12/17 04/12/17 16:48 16:48 16:48 PT with INR INR PTT (Actin FS) VBG pH 7.28 L POC VBG pCO2 44.8 POC VBG pO2 30.9 D Mixed VBG HCO3 20.4 Sodium Potassium Chloride Carbon Dioxide Anion Gap BUN Creatinine Creat Clearance w eGFR Random Glucose Lactic Acid 1.8 Calcium Phosphorus 5.8 H D Magnesium Total Bilirubin AST ALT Alkaline Phosphatase Creatine Kinase 145 Troponin I < 0.02 B-Natriuretic Peptide 68178.79 H Total Protein Albumin Acetone, Qual Negative L 04/12/17 04/12/17 16:48 15:35 PT with INR 12.80 H INR 1.13 PTT (Actin FS) 30.6 D VBG pH POC VBG pCO2 POC VBG pO2 Mixed VBG HCO3 Sodium 129 L Potassium 4.9 D Chloride 94 L Carbon Dioxide 18 L Anion Gap 17 H BUN 58 H D Creatinine 5.8 H Creat Clearance w eGFR 8.75 Random Glucose 172 H D Lactic Acid Calcium 8.3 L Phosphorus Magnesium 2.2 D Total Bilirubin 0.9 AST 76 H ALT 58 Alkaline Phosphatase 1533 H Creatine Kinase Troponin I B-Natriuretic Peptide Total Protein 8.5 H Albumin 3.2 L Acetone, Qual 04/12/17 15:35 RBC 3.54 L MCV 85.9 MCHC 31.9 L RDW 16.9 H MPV 9.4 Neutrophils % 76.7 Lymphocytes % 7.5 L D Monocytes % 13.5 H Eosinophils % 1.5 Basophils % 0.8 - Medications Given in the ED: ED Medications Discontinued Medications Generic Name Dose Route Start Last Admin Trade Name Freq PRN Reason Stop Dose Admin Morphine Sulfate 4 mg 04/12/17 16:29 04/12/17 17:15 Morphine Injection - IVPUSH 04/12/17 16:30 4 mg ONCE ONE Administration Medical Decision Making - Medical Decision Making 04/12/17 20:52 pt signed out pending cxr, hip xray, labs -acetone negative pt is hyponatremic pt with diarrhea and hip pain also with fluid in fissure on xray will admit for further eval of diarrhea and hyponatremia will need HD tomorrow for fluid overload on xray and elevated BNP case discussed with Dr. Johnson who accepts pt to service has been seen by Dr. Susie Alvarado for HD in the past. *DC/Admit/Observation/Transfer Diagnosis at time of Disposition: Shortness of breath, Weakness, Hyponatremia - Discharge Dispostion Condition at time of disposition: Fair Admit: Yes Decision to Admit order Date/Time: Decision to Admit Order Category Date Time Status Decision to Admit to Hospital Routine Admission 04/12/17 20:38 Active - Referrals Referrals: Edna Calero MD [Primary Care Provider] - - Patient Instructions - Post Discharge Activity
--- NOTE | 2017-04-12 21:00 | HP ---
CHIEF COMPLAINT: generalized weakness, L hip/L inguinal pain, frontal headache, mild SOB, diarrhea PCP: Dr. Edna Dasilva HISTORY OF PRESENT ILLNESS: 26 y/o AA F with PMHx ESRD (anuric, dialysis MWF w/ L arm fistula), HTN, IDDM, O2 dependence (likely 2/2 possible asthma), PE (2 mo ago) on Eliquis, presented to ER with 2 days hx of mild SOB, watery nonbloody diarrhea x 10 episodes in 24 hr, frontal headache x 2 days, generalized body weakness x 1wk, L hip/L inguinal pain. She states the L hip/L inguinal pain is currently 4/10 and can go up to 10/10, worsens with weight bearing (standing, sitting up, walking). It is chronic, but has worsened over the last couple days. She denies trauma, severe exercise, exposure to children, or previous pmhx of bone disease other than osteomyelitis in R pinky toe. Her headache "comes and goes" and is in the front of her head, associated with photosensitivity. She states her mom has had a cold for the last two days; she does not live with anyone else. She states she has abdominal discomfort associated with her diarrhea. She reports nausea, denies vomiting, hematochezia, melena, recent abx. She also has numbness, weakness in b/l LE that is chronic; she attributes it to her DM. She is on 2 L O2 NC at home and all medicatiosn were confirmed with pt. She undergoes dialysis M, W, F but missed this previous Wednesday (04/12) dialysis due to extreme weakness. She had an extra dialysis session on 04/10 (Wednesday) due to increased fluid retention in b/l LE. She denies ever being screened for lupus. ER course was notable for: (1) Morphine IV 4mg push x1 for pain (2) CT head scan - negative for acute pathology (3) CXR - negative for acute pathology (4) Hip/Pelvis X ray - pending reading (5) Duplex US b/l LE - negative for DVT (6) CBC - anemia, chronic; H/H 9.7/30.4 (7) CMP - hyponatremia 129 (corrected 130), BUN/Cr 58/5.8, phosphorous 5.8, calcium 8.3, Alb 3.2, Mg 2.2 wnl; BNP 40941.79 (8) ABG - high anion gap (17) metabolic acidosis Recent Travel: denies PAST MEDICAL HISTORY: cardiac myxoma (removed 2013), ortho surgery (bone removed R pinky toe 2/2 DM), ESRD (anuric, dialysis MWF w/ L arm fistula), HTN, IDDM, O2 dependence (likely 2 /2 possible asthma), PE (2 mo ago) on Eliquis PAST SURGICAL HISTORY: R pinky toe bone removal (2016) Cardiac myxoma removal (2013) Social History: Smoking: never Alcohol: none Drugs: none Lives with mom no strenuous exercise Allergies No Known Drug Allergies Allergy (Verified 04/12/17 15:14) HOME MEDICATIONS: Home Medications Medication Instructions Recorded Gabapentin 200 mg PO TID 03/11/16 Sevelamer Carbonate [Renvela -] 1,600 mg PO TIDCM #60 tab 07/14/16 Acetaminophen [Tylenol .Regular 325 mg PO Q6H PRN #0 tablet 10/17/16 Strength -] Insulin Lispro [Humalog Kwikpen 0 unit SQ TID 12/21/16 U-100] Losartan Potassium [Cozaar -] 100 mg PO DAILY 12/21/16 Insulin (Levemir) [Levemir Flexpen 15 units SQ BID #5 pen 12/24/16 -] Clonidine HCl [Catapres -] 0.3 mg PO TID tablet 12/26/16 Labetalol HCl [Normodyne -] 400 mg PO TID #60 tablet 12/26/16 Hydralazine HCl [Apresoline -] 50 mg PO TID #60 tablet 01/12/17 Apixaban [Eliquis -] 2.5 mg PO BID #60 tablet 03/06/17 Buspirone HCl [Buspar -] 10 mg PO TID #90 tablet 03/06/17 REVIEW OF SYSTEMS CONSTITUTIONAL: Absent: fever, chills, diaphoresis, generalized weakness, malaise, loss of appetite, weight change HEENT: Absent: rhinorrhea, nasal congestion, throat pain, throat swelling, difficulty swallowing, mouth swelling, ear pain, eye pain, visual changes CARDIOVASCULAR: Absent: chest pain, syncope, palpitations, irregular heart rate, lightheadedness , peripheral edema RESPIRATORY: Absent: cough, shortness of breath, dyspnea with exertion, orthopnea, wheezing, stridor, hemoptysis GASTROINTESTINAL: Absent: abdominal pain, abdominal distension, nausea, vomiting, diarrhea, constipation, melena, hematochezia GENITOURINARY: Absent: dysuria, frequency, urgency, hesitancy, hematuria, flank pain, genital pain MUSCULOSKELETAL: Absent: myalgia, arthralgia, joint swelling, back pain, neck pain SKIN: Absent: rash, itching, pallor HEMATOLOGIC/IMMUNOLOGIC: Absent: easy bleeding, easy bruising, lymphadenopathy, frequent infections ENDOCRINE: Absent: unexplained weight gain, unexplained weight loss, heat intolerance, cold intolerance NEUROLOGIC: Absent: headache, focal weakness or paresthesias, dizziness, unsteady gait, seizure, mental status changes, bladder or bowel incontinence PSYCHIATRIC: Absent: anxiety, depression, suicidal or homicidal ideation, hallucinations. PHYSICAL EXAMINATION Vital Signs - 24 hr 04/12/17 04/12/17 15:14 16:20 Temperature 97.7 F Pulse Rate 79 Respiratory 16 Rate Blood Pressure 171/105 O2 Sat by Pulse 99 99 Oximetry (%) GENERAL: Awake, alert, and fully oriented, in mild distress. HEAD: Normal with no signs of trauma. EYES: Pupils equal, round and reactive to light, extraocular movements intact, sclera icteric, conjunctiva clear. EARS, NOSE, THROAT: Ears normal, nares patent, oropharynx clear without exudates. Moist mucous membranes. NECK: Normal range of motion, supple without lymphadenopathy, LUNGS: Breath sounds equal, clear to auscultation bilaterally. No wheezes, and no crackles. No accessory muscle use. HEART: Regular rate and rhythm, normal S1 and S2 without murmur, rub or gallop. ABDOMEN: Soft, nontender, not distended, normoactive bowel sounds, no guarding, no rebound, MUSCULOSKELETAL: Normal range of motion at all joints. No bony deformities or tenderness. No CVA tenderness. UPPER EXTREMITIES: 2+ pulses, warm, well-perfused. No cyanosis. No clubbing. No peripheral edema. LOWER EXTREMITIES: 2+ pulses, warm, well-perfused. No calf tenderness. +2 peripheral edema. medial thigh tenderness NEUROLOGICAL: Cranial nerves II-XII intact. Normal speech. PSYCHIATRIC: Cooperative. Good eye contact. Appropriate mood and affect. SKIN: Warm, dry, no rashes or lesions noted, Laboratory Results - last 24 hr 04/12/17 04/12/17 04/12/17 15:35 15:35 16:48 WBC 8.9 D RBC 3.54 L Hgb 9.7 L Hct 30.4 L MCV 85.9 MCH 27.4 MCHC 31.9 L RDW 16.9 H Plt Count 299 MPV 9.4 Neutrophils % 76.7 Lymphocytes % 7.5 L D Monocytes % 13.5 H Eosinophils % 1.5 Basophils % 0.8 PT with INR 12.80 H INR 1.13 PTT (Actin FS) 30.6 D VBG pH POC VBG pCO2 POC VBG pO2 Mixed VBG HCO3 Sodium 129 L Potassium 4.9 D Chloride 94 L Carbon Dioxide 18 L Anion Gap 17 H BUN 58 H D Creatinine 5.8 H Creat Clearance w eGFR 8.75 Random Glucose 172 H D Lactic Acid Calcium 8.3 L Phosphorus Magnesium 2.2 D Total Bilirubin 0.9 AST 76 H ALT 58 Alkaline Phosphatase 1533 H Creatine Kinase Troponin I B-Natriuretic Peptide Total Protein 8.5 H Albumin 3.2 L Acetone, Qual 04/12/17 04/12/17 04/12/17 16:48 16:48 16:48 WBC RBC Hgb Hct MCV MCH MCHC RDW Plt Count MPV Neutrophils % Lymphocytes % Monocytes % Eosinophils % Basophils % PT with INR INR PTT (Actin FS) VBG pH 7.28 L POC VBG pCO2 44.8 POC VBG pO2 30.9 D Mixed VBG HCO3 20.4 Sodium Potassium Chloride Carbon Dioxide Anion Gap BUN Creatinine Creat Clearance w eGFR Random Glucose Lactic Acid 1.8 Calcium Phosphorus 5.8 H D Magnesium Total Bilirubin AST ALT Alkaline Phosphatase Creatine Kinase 145 Troponin I < 0.02 B-Natriuretic Peptide 55894.79 H Total Protein Albumin Acetone, Qual Negative L CBC, BMP 04/12/17 15:35 04/12/17 15:35 EKG: NSR 77, NO STD-E, Q wave V3, QtC 461 CT HEAD- Neg. for acute process DUPLEX- NO DVT in either leg. 3.4x3x0,7 R. Polipteal fossa cyst ASSESSMENT/PLAN: 26 year old AA female with PMHX of IDDM, ESRD (M, W,F) HTN, PE on home O2 , anemia , seizure x1 , Myxoma left atrium, who presented to the ED with 2 days history of weakness, fatigue, left inguinal pain, watery non bloody diarrhea was was admitted to med -surg due to high anion gap metabolic acidosis and hyponatremia # High anion gap metabolic acidosis 2/2 uremia * PT on HD(,,), missed Wednesday session (had extra session on Sat due to fluid overloaded) * consult Mail List Librarian Dr.Shaji Duron * fluid restriction * NO signs on infection or lactic acidosis * # Generalized weakness /left hip, left thigh pain , chronic * worsen in the last couple days * likely 2/2 ESRD and hyonatremia vs volume overloaded * HD , tomorrow AM * Pain control * Physical therapy * continue gabapentin 200 TID # Hypervolemic Hyponatremia 2/2 ESRD * NA 129 on admission(corrected Na 130) , symptomatic with fatigue and headache , nausea * fluid restriction HD in AM * Monitor NA Q4 hr * Monitor clinically # Diarrhea * R/O infection reasons * Stool ova and parasites * c.diff toxin assays # Frontal tension headache, chronic * likely 2/2 Hyponatremai and acidosis * Pain control # ESRD * HD(,,) * missed wednesday session , had extra session on Sat * HD in AM * Nephrology on board * continue home meds Renvela 1600mg TID # Anemia 2/2 ESRD * chronic * H/H 9.7/30.4 on admission * in no acute bleeding * Monitor H/H * consider erythropiotin with HD # Diastolic Heart Failure * stable * Last Echo 9.17 with perserved EF * Can consider repeating * HD in Am * C/W Home meds * trop negative # IDDM * no controlled * Last HgbA1c 2 month ago 10.0 % * ISS * continue Levemir 15 SQ BID * diabetic diet * counselled for life style modification and diet * f/u closely as out patient # HTN , * chronic 2/2 ESRD * continue home meds * Clonidine 0.3mg TID * Hydralazine 50mg TID * Labetelol 400mg TID, hold for BP 120/80 * Cozaar 100mg daily # H/O PE * denies any SOB * on Eliquis 2.5 BID #FEN * Fluid restriction to 500 CC/daily * E: Hyponatremia, Hyperphosphatemia * N: clear liquids #Progh * DVT : SCDS Both legs , continue Eliquis * # Dispo * Admit to med surge * Code status : Full code Visit type - Emergency Visit Emergency Visit: Yes ED Registration Date: 04/12/17 Care time: The patient presented to the Emergency Department on the above date and was hospitalized for further evaluation of their emergent condition. - New Patient This patient is new to me today: Yes Date on this admission: 04/12/17 - Critical Care Critical Care patient: No
[2017-04-12] MEDS: INSULIN DETEMIR 100 UNITS/ML MDV SQ SCH (23:00)
[2017-04-12] MEDS: APIXABAN 2.5 MG TABLET PO SCH (23:00)
[2017-04-12] MEDS ORDERED: cloNIDine HCL 0.1 MG TABLET ONE (23:36)
[2017-04-12] MEDS ORDERED: hydrALAZINE HCL 25 MG TABLET (FP) ONE (23:37)
[2017-04-12] MEDS ORDERED: GABAPENTIN 100 MG CAPSULE (FP) ONE (23:38)
[2017-04-12] MEDS: hydrALAZINE HCL 50 MG TABLET (FP) PO SCH (23:42)
[2017-04-12] MEDS: cloNIDine HCL 0.1 MG TABLET PO SCH (23:42)
[2017-04-12] MEDS: GABAPENTIN 100 MG CAPSULE (FP) PO SCH (23:43)
[2017-04-12] MEDS: SEVELAMER CARBONATE 800 MG TAB (FP) PO SCH (23:43)
[2017-04-12] MEDS: LABETALOL HCL 200 MG TABLET (FP) PO SCH (23:43)
[2017-04-13] MEDS ORDERED: INSULIN DETEMIR 100 UNITS/ML MDV SQ ONE ×2 (00:25→08:35)
[2017-04-13] MEDS ORDERED: ACETAMINOPHEN 325 MG TABLET (FP) ONE (05:23)
[2017-04-13] MEDS: ACETAMINOPHEN 325 MG TABLET (FP) PO PRN ×2 (05:25→19:02)
[2017-04-13] MEDS: LABETALOL HCL 200 MG TABLET (FP) PO SCH ×3 (06:54→21:32)
[2017-04-13] MEDS: GABAPENTIN 100 MG CAPSULE (FP) PO SCH ×3 (06:54→21:22)
[2017-04-13] MEDS: hydrALAZINE HCL 50 MG TABLET (FP) PO SCH ×3 (06:54→21:31)
[2017-04-13] MEDS: cloNIDine HCL 0.1 MG TABLET PO SCH ×3 (06:54→21:22)
[2017-04-13 06:55] LABS: BASO % 1.5 % (0-2.0); EOS % 1.6 % (0-4.5); HEMATOCRIT 30.7 % (32.4-45.2); HEMOGLOBIN 9.7 GM/dL (10.7-15.3); LYMPH % 11.3 % (8-40); MCH 27.2 pg (25.7-33.7); MCHC 31.6 g/dl (32.0-36.0); MEAN CELL VOLUME 86.2 fl (80-96); MEAN PLT VOLUME 9.3 fl (7.5-11.1); MONO % 13.1 % (3.8-10.2); NEUT % 72.5 % (42.8-82.8); PLATELET COUNT 319 K/MM3 (134-434); RBC 3.56 M/mm3 (3.60-5.2); RDW 17.3 % (11.6-15.6); WHITE BLOOD COUNT 7.7 K/mm3 (4.0-10.0)
[2017-04-13 07:20] LABS: ANION GAP 16 (8-16); BLOOD UREA NITROGEN 66 mg/dL (7-18); CALCIUM 8.1 mg/dL (8.5-10.1); CHLORIDE 94 mmol/L (98-107); CO2 19 mmol/L (21-32); CREATININE 6.6 mg/dL (0.55-1.02); GLUCOSE,RANDOM 239 mg/dL (74-106); MAGNESIUM 2.1 mg/dL (1.8-2.4); PHOSPHOROUS 5.6 mg/dL (2.5-4.9); POTASSIUM 5.1 mmol/L (3.5-5.1); SGOT/AST 52 U/L (15-37); SGPT/ALT 49 U/L (12-78); SODIUM 129 mmol/L (136-145)
[2017-04-13 07:33] LABS: BILIRUBIN,TOTAL 0.8 mg/dL (0.2-1.0); TOT PROT 7.9 g/dl (6.4-8.2)
[2017-04-13 07:42] LABS: ALK PHOS 1377 U/L (45-117)
[2017-04-13] MEDS ORDERED: INSULIN (NOVOLOG) ASPART 100 UNITS/ML 10ML VIAL ONE (08:35)
[2017-04-13 08:44] LABS: ARTERIAL BLD GAS O2 SATURATION 97.6 % (90-98.9); ARTERIAL BLOOD GAS BASE EXCESS -8.1 meq/l (-2-2); ARTERIAL BLOOD GAS PCO2 36.8 mmHg (35-45); ARTERIAL BLOOD GAS PO2 99.6 mmHg (80-100); ARTERIAL BLOOD GAS pH 7.29 (7.35-7.45)
[2017-04-13 08:45] LABS: ALLENS TEST POSITIVE
[2017-04-13] MEDS: APIXABAN 2.5 MG TABLET PO SCH ×2 (10:22→21:22)
[2017-04-13] MEDS: SEVELAMER CARBONATE 800 MG TAB (FP) PO SCH ×3 (10:22→19:00)
[2017-04-13] MEDS: LOSARTAN POTASSIUM 100 MG TABLET PO SCH (10:22)
[2017-04-13] MEDS: INSULIN SLIDING SCALE (NOVOLOG) 1 VIAL SQ SCH ×4 (10:23→21:32)
[2017-04-13] MEDS: INSULIN DETEMIR 100 UNITS/ML MDV SQ SCH ×2 (10:24→21:32)
--- NOTE | 2017-04-13 14:03 | CON.NEP ---
Consult Consult Specialty:: Nephrology Referred by:: ED Reason for Consultation:: ESRD on HD - History of Present Illness Chief Complaint: Diarrhea, LE pain, UGTIERRES History of Present Illness: This is a 26 year old woman with PMhx of ESRD on HD (MWF), Hypertension, DM Typw 1, PE on Eliqus who presented to the ED wit complaints of GUTIERRES, diarrhea, and left LE pain. Pt last had dialysis on Wednesday, missed her Wednesday session because of weakness. Pt has progressively worsening LE pain x 2 weeks. No SOB, chest pain, abd pain, N/V. No fever or chills. Primary Dialysis Rn is Dr. Wise. - History Source History Provided By: Patient Limitations to Obtaining History: No Limitations - Past Medical History Cardio/Vascular: Yes: CHF, HTN, Other (thrombus in atrium, PE, DVT) Pulmonary: Yes: Pulmonary Embolus Renal/: Yes: Renal Failure, Hemodialysis ...LMP: 08/17/14 Infectious Disease: Yes: MRSA (history of bacteremia, recent mrsa foot abscess) Endocrine: Yes: Diabetes Mellitus (type 1 on insulin pump) Additional Medical History: DVT, PE on coumadin - Past Surgical History Past Surgical History: Yes: AV Fistula/Graft (Right arm) - Alcohol/Substance Use Hx Alcohol Use: No History of Substance Use: reports: None - Smoking History Smoking history: Never smoked Have you smoked in the past 12 months: No Aproximately how many cigarettes per day: 10 - Social History Usual Living Arrangement: With Parent ADL: Independent Occupation: unemployed History of Recent Travel: No Home Medications - Allergies Allergies/Adverse Reactions: Allergies Allergy/AdvReac Type Severity Reaction Status Date / Time No Known Drug Allergies Allergy Verified 04/12/17 15:14 - Home Medications Home Medications: Ambulatory Orders Gabapentin 200 mg PO TID 03/11/16 Sevelamer Carbonate [Renvela -] 1,600 mg PO TIDCM #60 tab 07/14/16 Acetaminophen [Tylenol .Regular Strength -] 325 mg PO Q6H PRN #0 tablet Insulin Lispro [Humalog Kwikpen U-100] See Protocol SQ TID 12/21/16 Losartan Potassium [Cozaar -] 100 mg PO DAILY 12/21/16 Insulin (Levemir) [Levemir Flexpen -] 15 units SQ BID #5 pen 12/24/16 Clonidine HCl [Catapres -] 0.3 mg PO TID tablet 12/26/16 Labetalol HCl [Normodyne -] 400 mg PO TID #60 tablet 12/26/16 Hydralazine HCl [Apresoline -] 50 mg PO TID #60 tablet 01/12/17 Apixaban [Eliquis -] 2.5 mg PO BID #60 tablet 03/06/17 Buspirone HCl [Buspar -] 10 mg PO TID PRN 04/12/17 Family Disease History - Family Disease History Family Disease History: Diabetes: Grandparent (HTN), Heart Disease: Grandparent , Other: Father (unknown), Mother (HTN) Review of Systems - Review of Systems Constitutional: reports: Lethargy Eyes: reports: No Symptoms Neck: reports: No Symptoms Cardiovascular: reports: Edema. denies: Chest Pain Respiratory: reports: SOB, Wheezing. denies: Cough Gastrointestinal: reports: Diarrhea, Nausea, Vomiting Genitourinary: reports: No Symptoms Musculoskeletal: reports: Extremity Pain Neurological: reports: No Symptoms Nephrology Consult - Height Height: 5 ft 6 in - Weight Weight: 65.771 kg - BMI Body Mass Index (BMI): 23.3 - Lab Results CBC,BMP: CBC, BMP 04/13/17 06:34 04/13/17 06:33 Anion Gap: Anion Gap Anion Gap 16 (8-16) 04/13/17 06:33 - Imaging X-ray: Image Reviewed - Physical Examination Vital Signs: Vital Signs Temperature 98.8 F 04/13/17 11:17 Pulse Rate 80 04/13/17 11:17 Respiratory Rate 16 04/13/17 11:52 Blood Pressure 145/86 04/13/17 11:17 O2 Sat by Pulse Oximetry (%) 96 04/13/17 11:52 Constitutional: Yes: No Distress, Calm Eyes: Yes: Conjunctiva Clear HENT: Yes: Atraumatic, Normocephalic Neck: Yes: Supple Cardiovascular: Yes: Regular Rate and Rhythm, S1, S2. No: Murmur Respiratory: Yes: Regular, CTA Bilaterally, Rales Renal/: Yes: Anuria. No: Bladder Distention, CVA Tenderness - Left, CVA Tenderness - Right Extremities: No: Cold, Cool, Cyanosis Edema: No Assessment/Plan 26 year old woman with PMhx of ESRD on HD (MWF), Hypertension, DM Typw 1, PE on Eliqus who presented to the ED wit complaints of GUTIERRES, diarrhea, and left LE pain. #ESRD on HD with Edema for dialysis today with aggressive UF will plan for additional dialysis tomorrow #LE and left Hip Pain hx of myositis of uncertain etiology Consider further imaging of the LE (CT r/o collection/abcess) check CRP/ESR check blood cultures with dialysis #Diarrhea work up as per primary diet as tolerated #CKD related Anemia continue MACIE with HD no indication for transfusion #Renal Osteodystrophy continue Renvela tid with meals #Hypertension continue oral antihypertensives goal BP < 140/90 expect improvement with UF Thank you Will follow Nathan Vo DO Current Medications Acetaminophen (Tylenol -) 325 mg PO Q6H PRN PRN Reason: PAIN Last Admin: 04/13/17 05:25 Dose: 325 mg Acetaminophen (Tylenol -) 650 mg PO Q6H PRN PRN Reason: PAIN Apixaban (Eliquis -) 2.5 mg PO BID [facility] Last Admin: 04/13/17 10:22 Dose: 2.5 mg Clonidine (Catapres -) 0.3 mg PO TID [facility] Last Admin: 04/13/17 06:54 Dose: 0.3 mg Epoetin Abiel (Epogen -) 10,000 units IVPUSH ONCE ONE Stop: 04/13/17 08:12 Gabapentin (Neurontin -) 200 mg PO TID [facility] Last Admin: 04/13/17 06:54 Dose: 200 mg Hydralazine HCl (Apresoline -) 50 mg PO TID [facility] Last Admin: 04/13/17 06:54 Dose: 50 mg Insulin Aspart (Novolog Vial Sliding Scale -) 1 vial SQ ACHS [facility] PRN Reason: Protocol Last Admin: 04/13/17 12:25 Dose: Not Given Insulin Detemir (Levemir Vial) 15 units SQ BID@0700,2200 [facility] Last Admin: 04/13/17 10:24 Dose: 15 unit Labetalol HCl (Normodyne -) 400 mg PO TID [facility] Last Admin: 04/13/17 06:54 Dose: 400 mg Losartan Potassium (Losartan Potassium) 100 mg PO DAILY [facility] Last Admin: 04/13/17 10:22 Dose: 100 mg Oxycodone HCl (Roxicodone -) 10 mg PO Q6H PRN PRN Reason: PAIN LEVEL 6-10 Sevelamer Carbonate (Renvela -) 1,600 mg PO TIDCM [facility] Last Admin: 04/13/17 12:26 Dose: Not Given
[2017-04-13] MEDS ORDERED: EPOETIN ALFA 10,000 UNIT/1 ML VIAL IVPUSH ONE (15:00)
--- NOTE | 2017-04-13 15:12 | EKG ---
Test Reason : Blood Pressure : / mmHG Vent. Rate : 077 BPM Atrial Rate : 077 BPM P-R Int : 188 ms QRS Dur : 082 ms QT Int : 408 ms P-R-T Axes : 027 018 041 degrees QTc Int : 461 ms NORMAL SINUS RHYTHM POSSIBLE LEFT ATRIAL ENLARGEMENT POSSIBLE ANTERIOR INFARCT (CITED ON OR BEFORE 04-MAR-2017) ABNORMAL ECG WHEN COMPARED WITH ECG OF 16-MAR-2017 16:38, NO SIGNIFICANT CHANGE WAS FOUND Confirmed by Michoacano Driver MD ([id number]) on 04/13/2017 3:11:47 PM Referred By: Confirmed By:Michoacano Driver MD
[2017-04-13 15:31] LABS: ANION GAP 13 (8-16); BLOOD UREA NITROGEN 67 mg/dL (7-18); CALCIUM 7.6 mg/dL (8.5-10.1); CHLORIDE 97 mmol/L (98-107); CO2 20 mmol/L (21-32); CREATININE 6.7 mg/dL (0.55-1.02); GLUCOSE,RANDOM 129 mg/dL (74-106); SODIUM 130 mmol/L (136-145)
--- NOTE | 2017-04-13 16:38 | PN ---
Progress Note (short form) - Note Progress Note: Subjective: The patient was seen in HD. She is agitated with simple questioning. Current Medications Generic Name Dose Route Start Last Admin Trade Name Freq PRN Reason Stop Dose Admin Acetaminophen 325 mg 04/12/17 22:29 04/13/17 05:25 Tylenol - PO 325 mg Q6H PRN Administration PAIN Acetaminophen 650 mg 04/13/17 09:42 Tylenol - PO Q6H PRN PAIN Apixaban 2.5 mg 04/12/17 22:30 04/13/17 10:22 Eliquis - PO 2.5 mg BID ROSA MARIA Administration Clonidine 0.3 mg 04/12/17 22:30 04/13/17 06:54 Catapres - PO 0.3 mg TID ROSA MARIA Administration Gabapentin 200 mg 04/12/17 22:30 04/13/17 06:54 Neurontin - PO 200 mg TID ROSA MARIA Administration Hydralazine HCl 50 mg 04/12/17 22:30 04/13/17 06:54 Apresoline - PO 50 mg TID ROSA MARIA Administration Insulin Aspart 1 vial 04/13/17 07:00 04/13/17 12:25 Novolog Vial Sliding Scale - SQ Not Given ACHS [facility] Protocol Insulin Detemir 15 units 04/12/17 22:30 04/13/17 10:24 Levemir Vial SQ 15 unit BID@0700,2200 ROSA MARIA Administration Labetalol HCl 400 mg 04/12/17 22:30 04/13/17 06:54 Normodyne - PO 400 mg TID ROSA MARIA Administration Losartan Potassium 100 mg 04/13/17 10:00 04/13/17 10:22 Losartan Potassium PO 100 mg DAILY ROSA MARIA Administration Oxycodone HCl 10 mg 04/13/17 09:42 Roxicodone - PO Q6H PRN PAIN LEVEL 6-10 Sevelamer Carbonate 1,600 mg 04/12/17 22:30 04/13/17 12:26 Renvela - PO Not Given TIDCM [facility] Objective: Vital Signs Period Temp Pulse Resp BP Sys/Ames Pulse Ox Last 24 Hr 98.8 F 79-95 16-19 145-196/86-122 96-96 Physical Exam: General: Agitated with questions, A&Ox3 Lungs: Refused Heart: Refused Abd: Refused Ext: B/l lower extremity edema. Left knee with medial mass, mobile, mildly tender CBCD WBC 7.7 K/mm3 (4.0-10.0) 04/13/17 06:34 RBC 3.56 M/mm3 (3.60-5.2) L 04/13/17 06:34 Hgb 9.7 GM/dL (10.7-15.3) L 04/13/17 06:34 Hct 30.7 % (32.4-45.2) L 04/13/17 06:34 MCV 86.2 fl (80-96) 04/13/17 06:34 MCHC 31.6 g/dl (32.0-36.0) L 04/13/17 06:34 RDW 17.3 % (11.6-15.6) H 04/13/17 06:34 Plt Count 319 K/MM3 (134-434) 04/13/17 06:34 MPV 9.3 fl (7.5-11.1) 04/13/17 06:34 CMP Sodium 130 mmol/L (136-145) L 04/13/17 14:45 Potassium 5.0 mmol/L (3.5-5.1) 04/13/17 14:45 Chloride 97 mmol/L (98-107) L 04/13/17 14:45 Carbon Dioxide 20 mmol/L (21-32) L 04/13/17 14:45 Anion Gap 13 (8-16) 04/13/17 14:45 BUN 67 mg/dL (7-18) H 04/13/17 14:45 Creatinine 6.7 mg/dL (0.55-1.02) H 04/13/17 14:45 Creat Clearance w eGFR 7.54 (>60) 04/13/17 06:33 Random Glucose 129 mg/dL (74-106) H D 04/13/17 14:45 Calcium 7.6 mg/dL (8.5-10.1) L 04/13/17 14:45 Total Bilirubin 0.8 mg/dL (0.2-1.0) 04/13/17 06:33 AST 52 U/L (15-37) H D 04/13/17 06:33 ALT 49 U/L (12-78) 04/13/17 06:33 Alkaline Phosphatase 1377 U/L (45-117) H 04/13/17 06:33 Total Protein 7.9 g/dl (6.4-8.2) 04/13/17 06:33 Albumin 3.0 g/dl (3.4-5.0) L 04/13/17 06:33 CARDIAC ENZYMES Creatine Kinase 145 IU/L (26-192) 04/12/17 16:48 Troponin I < 0.02 ng/ml (0.00-0.05) 04/12/17 16:48 Assessment: This is a 26 year old female with PMHx of ESRD (M,W,F), HTN, IDDM, hx of DVT, recent PE (on coumadin), on home O2, anemia, who presented to the ED with headache, diarrhea, shortness of breath. Plan: 1) Volume overload - 2/2 missed HD appointment on Wednesday - For HD today and additional session tomorrow - Appreciate nephrology consult 2) Lower extremity and left hip pain - F/u CT - Right muscle biopsy 08/26/2016: chronic and active necrotizing mypathy, severe - Left thigh biopsy 07/25/2015: Granulation and chronic inflammation involving epimysial/perifascial connective tissue and underlying skeletal muscle 3) HTN - Goal BP <140/90 - Continue Losartan 100mg po daily - Continue Labetolol 400mg po tid - Continue Hydralazine 50mg po tid - Continue Clonidine 0.3mg po tid - Monitor closely, may need to add additional agent if remains hypertensive 4) Hx of DVT and recent PE - Continue Eliquis 5) Anemia - At baseline - Continue to monitor 6) IDDM - Levemir 15u sq bid - ISS ACHS - BGM ACHS 7) Diarrhea - Resolved 8) Tongue sores - No evidence of thrush - Will give viscous lidocaine tidac 9) F/E/N: - Renal, diabetic diet - Hyponatremia: improving 10) Prophylaxis: - Continue Eliquis 11) Dispo: - Requires continued inpatient care CODE STATUS: FULL CODE Visit type - Emergency Visit Emergency Visit: Yes ED Registration Date: 04/12/17 Care time: The patient presented to the Emergency Department on the above date and was hospitalized for further evaluation of their emergent condition. - New Patient This patient is new to me today: Yes Date on this admission: 04/14/17 - Critical Care Critical Care patient: No
[2017-04-13] MEDS: oxyCODONE HCL 5 MG TABLET PO PRN (19:01)
[2017-04-14] MEDS ORDERED: LABETALOL HCL 200 MG TABLET (FP) PO ONE (01:12)
[2017-04-14] MEDS ORDERED: hydrALAZINE HCL 50 MG TABLET (FP) PO ONE (01:13)
[2017-04-14] MEDS: oxyCODONE HCL 5 MG TABLET PO PRN ×3 (01:29→16:50)
[2017-04-14] MEDS: ACETAMINOPHEN 325 MG TABLET (FP) PO PRN ×3 (01:30→16:51)
[2017-04-14 06:06] LABS: HBSAG SCREEN Negative (Negative); HEP B CORE AB, TOT Negative (Negative)
[2017-04-14] MEDS: INSULIN SLIDING SCALE (NOVOLOG) 1 VIAL SQ SCH ×4 (06:38→22:25)
[2017-04-14] MEDS: INSULIN DETEMIR 100 UNITS/ML MDV SQ SCH ×2 (06:38→22:24)
[2017-04-14] MEDS: GABAPENTIN 100 MG CAPSULE (FP) PO SCH ×3 (06:38→22:24)
[2017-04-14] MEDS: hydrALAZINE HCL 50 MG TABLET (FP) PO SCH ×3 (06:39→22:23)
[2017-04-14] MEDS: cloNIDine HCL 0.1 MG TABLET PO SCH ×3 (06:39→22:22)
[2017-04-14] MEDS: LABETALOL HCL 200 MG TABLET (FP) PO SCH ×3 (06:39→22:23)
[2017-04-14] MEDS ORDERED: INSULIN (NOVOLOG) ASPART 100 UNITS/ML 10ML VIAL ONE ×3 (06:47→21:47)
[2017-04-14 07:07] LABS: HEMATOCRIT 31.4 % (32.4-45.2); HEMOGLOBIN 9.7 GM/dL (10.7-15.3); MCH 26.8 pg (25.7-33.7); MCHC 31.1 g/dl (32.0-36.0); MEAN CELL VOLUME 86.3 fl (80-96); PLATELET COUNT 297 K/MM3 (134-434); RBC 3.64 M/mm3 (3.60-5.2); RDW 16.9 % (11.6-15.6); WHITE BLOOD COUNT 9.9 K/mm3 (4.0-10.0)
[2017-04-14 07:34] LABS: ALBUMIN 2.7 g/dl (3.4-5.0); ANION GAP 9 (8-16); BILIRUBIN,TOTAL 0.8 mg/dL (0.2-1.0); BLOOD UREA NITROGEN 32 mg/dL (7-18); CALCIUM 7.7 mg/dL (8.5-10.1); CHLORIDE 98 mmol/L (98-107); CO2 27 mmol/L (21-32); CREATININE 4.4 mg/dL (0.55-1.02); GLUCOSE,RANDOM 205 mg/dL (74-106); POTASSIUM 4.2 mmol/L (3.5-5.1); SGOT/AST 75 U/L (15-37); SGPT/ALT 47 U/L (12-78); SODIUM 134 mmol/L (136-145); TOT PROT 7.3 g/dl (6.4-8.2)
[2017-04-14 07:53] LABS: ALK PHOS 1329 U/L (45-117)
[2017-04-14] MEDS: SEVELAMER CARBONATE 800 MG TAB (FP) PO SCH ×3 (08:20→16:47)
[2017-04-14] MEDS ORDERED: EPOETIN ALFA 2,000 UNIT/1 ML VIAL IVPUSH ONE ×2 (10:15→13:30)
[2017-04-14] MEDS ORDERED: PT OWN MED DRAWER 7, Y5N ONE (11:18)
[2017-04-14] MEDS: LOSARTAN POTASSIUM 100 MG TABLET PO SCH (11:43)
[2017-04-14] MEDS: APIXABAN 2.5 MG TABLET PO SCH (11:43)
--- NOTE | 2017-04-14 15:17 | PN ---
Progress Note (short form) - Note Progress Note: Renal follow up for ESRD on HD Pt seen and examined during dialysis BP 160/100 goal UF is 3.5L AVF with good flow pt reports continued pain in her left LE no sob Vital Signs Temperature 97.7 F 04/14/17 14:00 Pulse Rate 89 04/14/17 14:30 Respiratory Rate 18 04/14/17 14:30 Blood Pressure 165/89 04/14/17 14:30 O2 Sat by Pulse Oximetry (%) 96 04/13/17 19:30 Intake & Output 04/11/17 04/12/17 04/13/17 04/14/17 23:59 23:59 23:59 23:59 Intake Total 440 960 Balance 440 960 Weight 65.771 kg 65.771 kg NAD awake and alert RRR CTA 2+ LE edema + tenderness CBC, BMP 04/14/17 06:30 04/14/17 06:30 Current Medications Acetaminophen (Tylenol -) 325 mg PO Q6H PRN PRN Reason: PAIN Last Admin: 04/13/17 05:25 Dose: 325 mg Acetaminophen (Tylenol -) 650 mg PO Q6H PRN PRN Reason: PAIN Last Admin: 04/14/17 08:31 Dose: 650 mg Apixaban (Eliquis -) 2.5 mg PO BID [facility] Last Admin: 04/14/17 11:43 Dose: 2.5 mg Clonidine (Catapres -) 0.3 mg PO TID [facility] Last Admin: 04/14/17 06:39 Dose: 0.3 mg Gabapentin (Neurontin -) 200 mg PO TID [facility] Last Admin: 04/14/17 06:38 Dose: 200 mg Hydralazine HCl (Apresoline -) 50 mg PO TID [facility] Last Admin: 04/14/17 06:39 Dose: 50 mg Insulin Aspart (Novolog Vial Sliding Scale -) 1 vial SQ ACHS [facility] PRN Reason: Protocol Last Admin: 04/14/17 11:47 Dose: Not Given Insulin Detemir (Levemir Vial) 15 units SQ BID@0700,2200 [facility] Last Admin: 04/14/17 06:38 Dose: 15 units Labetalol HCl (Normodyne -) 400 mg PO TID [facility] Last Admin: 04/14/17 06:39 Dose: 400 mg Losartan Potassium (Losartan Potassium) 100 mg PO DAILY [facility] Last Admin: 04/14/17 11:43 Dose: 100 mg Oxycodone HCl (Roxicodone -) 10 mg PO Q6H PRN PRN Reason: PAIN LEVEL 6-10 Last Admin: 04/14/17 08:30 Dose: 10 mg Sevelamer Carbonate (Renvela -) 1,600 mg PO TIDCM [facility] Last Admin: 04/14/17 11:43 Dose: 1,600 mg 26 year old woman with PMhx of ESRD on HD (MWF), Hypertension, DM Typw 1, PE on Eliqus who presented to the ED wit complaints of GUTIERRES, diarrhea, and left LE pain. #ESRD on HD with Edema for 2nd HD with further UF as tolerated #LE and left Hip Pain CT showed possible osteomylitis of pelvis and fluid collection in distal leg ortho to be consulted blood cultures drawn yesterday ID consult to guide Abx course if needed #CKD related Anemia continue MACIE with HD no indication for transfusion #Renal Osteodystrophy continue Renvela tid with meals #Hypertension continue oral antihypertensives goal BP < 140/90 if BP remains above goal after additional UF today can consider addition of CCB (pt was on Nifedpine but has not refilled her rx) Nathan Vo DO
--- NOTE | 2017-04-14 16:38 | PN ---
Progress Note (short form) - Note Progress Note: Pt seen and examined and discussed with ID. In summary she is a 26 year old F with multiple medical problems including IDDM, dialysis, HTN, O2 dependancy, +h/ o PE, on Eliquis, Diabetic LE neuropathy. She has recent B/L LE fluid retention , missed Dialysis on Wednesday, Doppler neg for LE DVT. I was asked to see the pt for a fluid collection found on CT scan in the right medial gastrocnemius muscle belly. The pt believes this particular mass has been there for atleast 2 months, it is not painful, it doesn't bother her at all, she can ambulate with no pain in this area. A pelvic CT also showed erosion of the pubis potentially c /w osteomyelitis. PE Right medial gastroc muscle belly with an indurated mass/fluid collection. Feels chronic, no signs of acute infection: not hot, no superficial erythema. Nontender Does not interfere with function of the right knee, ankle, foot, toes. No pain with motion. Imp/Rec Chronic right medial gastroc muscle belly fluid collection, does not appear to be infectious, will observe. Possible pubic (and possibly sacroiliac joint) osteomyelitis. I rec Dr Cordon do a CT guided needle biopsy of pubis, and of fluid collection in the right gastroc muscle belly.
--- NOTE | 2017-04-14 16:43 | PN ---
Progress Note (short form) - Note Progress Note: Subjective: The patient was seen in HD. She has complaints of sores on her tongue. Current Medications Generic Name Dose Route Start Last Admin Trade Name Jase PRN Reason Stop Dose Admin Acetaminophen 325 mg 04/12/17 22:29 04/13/17 05:25 Tylenol - PO 325 mg Q6H PRN Administration PAIN Acetaminophen 650 mg 04/13/17 09:42 04/14/17 08:31 Tylenol - PO 650 mg Q6H PRN Administration PAIN Apixaban 2.5 mg 04/12/17 22:30 04/14/17 11:43 Eliquis - PO 2.5 mg BID ROSA MARIA Administration Clonidine 0.3 mg 04/12/17 22:30 04/14/17 06:39 Catapres - PO 0.3 mg TID ROSA MARIA Administration Gabapentin 200 mg 04/12/17 22:30 04/14/17 06:38 Neurontin - PO 200 mg TID ROSA MARIA Administration Hydralazine HCl 50 mg 04/12/17 22:30 04/14/17 06:39 Apresoline - PO 50 mg TID ROSA MARIA Administration Insulin Aspart 1 vial 04/13/17 07:00 04/14/17 11:47 Novolog Vial Sliding Scale - SQ Not Given ACHS [facility] [place] Protocol Insulin Detemir 15 units 04/12/17 22:30 04/14/17 06:38 Levemir Vial SQ 15 units BID@0700,2200 ROSA MARIA Administration Labetalol HCl 400 mg 04/12/17 22:30 04/14/17 06:39 Normodyne - PO 400 mg TID ROSA MARIA Administration Lidocaine HCl 20 ml 04/14/17 16:48 Xylocaine 2% Viscous Oral - MM 04/14/17 16:49 TIDAC ONE Losartan Potassium 100 mg 04/13/17 10:00 04/14/17 11:43 Losartan Potassium PO 100 mg DAILY ROSA MARIA Administration Oxycodone HCl 10 mg 04/13/17 09:42 04/14/17 08:30 Roxicodone - PO 10 mg Q6H PRN Administration PAIN LEVEL 6-10 Sevelamer Carbonate 1,600 mg 04/12/17 22:30 04/14/17 11:43 Renvela - PO 1,600 mg TIDCM ROSA MARIA Administration Objective: Vital Signs Period Temp Pulse Resp BP Sys/Ames Pulse Ox Last 24 Hr 97.7 F-98.8 F 80-95 16-20 142-196/80-120 96 Physical Exam: General: NAD, A&Ox3 Lungs: CTA bilaterally Heart: RRR, S1S2 Abd: Soft, non-tender, non-distended. Normoactive bowel sounds Ext: B/l lower extremity edema. Left knee with medial mass, mobile, mildly tender CBCD WBC 7.7 K/mm3 (4.0-10.0) 04/13/17 06:34 RBC 3.56 M/mm3 (3.60-5.2) L 04/13/17 06:34 Hgb 9.7 GM/dL (10.7-15.3) L 04/13/17 06:34 Hct 30.7 % (32.4-45.2) L 04/13/17 06:34 MCV 86.2 fl (80-96) 04/13/17 06:34 MCHC 31.6 g/dl (32.0-36.0) L 04/13/17 06:34 RDW 17.3 % (11.6-15.6) H 04/13/17 06:34 Plt Count 319 K/MM3 (134-434) 04/13/17 06:34 MPV 9.3 fl (7.5-11.1) 04/13/17 06:34 CMP Sodium 130 mmol/L (136-145) L 04/13/17 14:45 Potassium 5.0 mmol/L (3.5-5.1) 04/13/17 14:45 Chloride 97 mmol/L (98-107) L 04/13/17 14:45 Carbon Dioxide 20 mmol/L (21-32) L 04/13/17 14:45 Anion Gap 13 (8-16) 04/13/17 14:45 BUN 67 mg/dL (7-18) H 04/13/17 14:45 Creatinine 6.7 mg/dL (0.55-1.02) H 04/13/17 14:45 Creat Clearance w eGFR 7.54 (>60) 04/13/17 06:33 Random Glucose 129 mg/dL (74-106) H D 04/13/17 14:45 Calcium 7.6 mg/dL (8.5-10.1) L 04/13/17 14:45 Total Bilirubin 0.8 mg/dL (0.2-1.0) 04/13/17 06:33 AST 52 U/L (15-37) H D 04/13/17 06:33 ALT 49 U/L (12-78) 04/13/17 06:33 Alkaline Phosphatase 1377 U/L (45-117) H 04/13/17 06:33 Total Protein 7.9 g/dl (6.4-8.2) 04/13/17 06:33 Albumin 3.0 g/dl (3.4-5.0) L 04/13/17 06:33 CARDIAC ENZYMES Creatine Kinase 145 IU/L (26-192) 04/12/17 16:48 Troponin I < 0.02 ng/ml (0.00-0.05) 04/12/17 16:48 Assessment: This is a 26 year old female with PMHx of ESRD (M,W,F), HTN, IDDM, hx of DVT, recent PE (on coumadin), on home O2, anemia, who presented to the ED with headache, diarrhea, shortness of breath. Plan: 1) Volume overload - 2/2 missed HD appointment on Wednesday - HD yesterday and today, tolerated it well - BP better controlled after HD today - Appreciate nephrology consult 2) Lower extremity and left hip pain - CT showed possible pubic osteomyelitis. Fluid collection seen in medial gastrocnemius muscle of the right lower leg - Seen by ortho who is recommending drainage of fluid collection with biopsy and biopsy of pubis - F/u blood cultures - IR consult placed for biopsy. Will hold Eliquis tonight and start Heparin gtt in preparation for biopsy - Discussed with Dr. 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, severe - Left thigh biopsy 07/25/2015: Granulation and chronic inflammation involving epimysial/perifascial connective tissue and underlying skeletal muscle - F/u rheumatology consult: saw the patient in 2015, no diagnosis made at the time 3) HTN - Goal BP <140/90 - Continue Losartan 100mg po daily - Continue Labetolol 400mg po tid - Continue Hydralazine 50mg po tid - Continue Clonidine 0.3mg po tid - Monitor closely, may need to add additional agent if remains hypertensive 4) Hx of DVT and recent PE - Hold Eliquis tonight and start Heparin gtt - Will need to be restarted on Eliquis 5mg po bid after biopsy 5) Anemia - At baseline - Continue to monitor 6) IDDM - Levemir 15u sq bid - ISS ACHS - BGM ACHS 7) Diarrhea - Resolved 8) Tongue sores - No evidence of thrush - Will give viscous lidocaine tidac 9) F/E/N: - Renal, diabetic diet - Hyponatremia: improving 10) Prophylaxis: - Will hold Eliquis and start Heparin gtt tonight 11) Dispo: - Requires continued inpatient care CODE STATUS: FULL CODE Visit type - Emergency Visit Emergency Visit: Yes ED Registration Date: 04/12/17 Care time: The patient presented to the Emergency Department on the above date and was hospitalized for further evaluation of their emergent condition. - New Patient This patient is new to me today: No - Critical Care Critical Care patient: No
--- NOTE | 2017-04-14 16:49 | PN ---
Progress Note (short form) - Note Progress Note: ID consult dictated imp/reccd 26 year old female with poorly controlled DM , esrd on HD , history of multiple bouts of "myositis" in the past- both legs has chronic left thigh swelling has had chronic right calf swelling for last two months as well has had worsening left groin pain for last two weeks has had multiple admissions this year- blood cultures alll negative history of MRSA bacteremia secondary to permacath infection 2014 MRSA osteo of the toe 2015 she has had recurrent swelling of her thighs and has had muscle biopsies in 2016 Left thigh, 2017 right thigh no fevers esr/crp noted blood culturs sent possible pelvic osteomyelitis of the left pubic ramus ?myositis DM esrd/hd ct scan reviewed with radiology ortho note reviewed suggest IR to evaluate for possible biopsy of pubic bone and muscle- routine/ fungal, afb as well as pathology no antibiotics for now ?rheum input d/w hospitalist
[2017-04-14] MEDS ORDERED: HEPARIN NA (PORCINE) 5,000 UNITS/ML 1ML VIAL IVPUSH PRN (19:13)
--- NOTE | 2017-04-14 19:32 | CONS ---
DATE OF CONSULTATION: DATE OF DICTATION: 04/14/2017 INFECTIOUS DISEASE CONSULTATION REQUESTING PHYSICIAN: Hospitalist Service. CONSULTING PHYSICIAN: Alia Dickens M.D. HISTORY OF PRESENT ILLNESS: This is a 26-year-old female with past medical history of end-stage renal disease. She is on dialysis. History of poorly controlled diabetes. She had a recent pulmonary embolus on Eliquis. She comes to the emergency room with shortness of breath and diarrhea. As well she notes she has chronic thigh pain but over the last 2 weeks has had increasing pain in her left groin. She is having due to the pain. She denies any fevers or chills, and she had vomiting which has stopped. Given the complaints of pain her leg, she had a CAT scan of her pelvis and lower extremity done which are reviewed with radiology, which is notable for partial erosion of the left pubic tubercle along with swelling of the left obturator externus muscle. As well she has a fluid collection in the right gastrocnemius muscle. Patient denied any fevers or chills, any nausea or vomiting. She has a prior history of recurrent back pain and swelling. She has had biopsies of her thighs in 2016 she had a biopsy of her left thigh that showed granulation and chronic inflammation with special stains that were negative. She had a biopsy of the right thigh in 2017 and was found to have chronic and active necrotizing myopathy, with evidence of myonecrosis. PAST MEDICAL HISTORY: Her past medical history is extensive. Notable for history of poorly controlled insulin dependent diabetes, end-stage renal disease on dialysis. She has a history of anemia, hypertension. She had an atrial myxoma in 2013. She is status post cholecystectomy. She had MRSA bacteremia in 2015 secondary to infected PermCath. She has had osteomyelitis of the left toe, again biopsy proven and culture positive for MRSA. She reports in the last year she has not been hospitalized anywhere else. She has had multiple blood cultures this last year including April, July, August, and December of 2016, all of which were negative. She reports she has not been on any antibiotics this year. ALLERGIES: No known drug allergies. HOME MEDICATIONS: Include Renvela, Cozaar, Normodyne, insulin, Apresoline, gabapentin, Catapres, Buspar, Eliquis. FAMILY HISTORY: Noncontributory. She has an AV fistula as well on her right arm. SOCIAL HISTORY: She lives with her parents. She is independent. She is unemployed. FAMILY HISTORY: Notable for diabetes. Grandparents with heart disease and hypertension. Mother has hypertension. REVIEW OF SYSTEMS: She reports she has chronic left thigh pain, but the pain in her groin has been worsening over the last 2 weeks. She reports her right calf has been swollen for the last 2 months, but there has been no associated erythema or edema. PHYSICAL EXAMINATION: General: She is awake and alert. She just finished dialysis. Her left AV fistula is without any erythema. She has had no fever since admission. Vital signs: She has had no fever since admission. Her current temperature is 97.7, pulse is 92, blood pressure 142/80, respiratory rate 18. HEENT: Normocephalic. Eyes are anicteric. Neck: Supple. Lungs: Clear to auscultation. Heart: Regular rate and rhythm. Abdomen: Soft, nontender. Extremities: Her left thigh is indurated and more swollen than her right. There is no erythema or warmth. Her right calf is indurated and swollen compared to her left. Skin: She has on her back and scattered on her leg, she has multiple skin scars that she ascribes to scratch kendrick. Her feet ulcers are healed, but she does have some chronic skin breakdown on both her feet. She does not see the device repair technician. LABORATORY: Notable for white count of 9.9, hemoglobin 9.7, platelets 297, saturation rate is . BUN and creatinine are 32 and 4.4. Alkaline phosphatase is 1329 and her CRP is 3.9. Blood cultures were drawn yesterday and are negative at 24 hours. CAT scan findings are as previously stated. IMPRESSION: In summary, this is a 26-year-old woman, history prior methicillin resistant Staphylococcus aureus infection with left groin pain. CAT scan findings notable for possible left pubic osteo. Orthopedics note was reviewed, would suggest interventional radiology to evaluate for possible biopsy of the bone and muscle, routine fungal acid-fast bacillus culture as well as pathology, no antibiotics for now, consider rheumatology input. All of the above was discussed with the hospitalist. ALIA DICKENS M.D. [id number]
[2017-04-14] MEDS ORDERED: APIXABAN 5 MG TABLET PO SCH (22:00)
[2017-04-14] MEDS ORDERED: HEPARIN - 25,000 UNIT in SODIUM CHLORIDE 495 ML IV SCH (22:00)
[2017-04-14] MEDS: HEPARIN NA (PORCINE) 5,000 UNITS/ML 1ML VIAL IVPUSH PRN (22:15)
[2017-04-14] MEDS: LIDOCAINE VISCOUS 2% ORAL/TOP 20 ML UNIT-DOSE CUP MM SCH (22:28)
[2017-04-15] MEDS: oxyCODONE HCL 5 MG TABLET PO PRN ×3 (02:03→21:00)
[2017-04-15] MEDS: ACETAMINOPHEN 325 MG TABLET (FP) PO PRN ×3 (02:04→21:01)
[2017-04-15] MEDS: HEPARIN NA (PORCINE) 5,000 UNITS/ML 1ML VIAL IVPUSH PRN ×3 (05:52→23:27)
[2017-04-15] MEDS: cloNIDine HCL 0.1 MG TABLET PO SCH ×3 (05:52→21:02)
[2017-04-15] MEDS: LABETALOL HCL 200 MG TABLET (FP) PO SCH ×3 (05:52→21:02)
[2017-04-15] MEDS: hydrALAZINE HCL 50 MG TABLET (FP) PO SCH ×3 (05:52→21:02)
[2017-04-15] MEDS: GABAPENTIN 100 MG CAPSULE (FP) PO SCH ×3 (05:52→21:02)
[2017-04-15] MEDS: INSULIN SLIDING SCALE (NOVOLOG) 1 VIAL SQ SCH ×4 (06:30→21:03)
[2017-04-15] MEDS: LIDOCAINE VISCOUS 2% ORAL/TOP 20 ML UNIT-DOSE CUP MM SCH ×3 (06:31→16:42)
[2017-04-15] MEDS: INSULIN DETEMIR 100 UNITS/ML MDV SQ SCH ×2 (06:31→21:02)
[2017-04-15 07:36] LABS: BASO % 0.6 % (0-2.0); EOS % 1.8 % (0-4.5); HEMATOCRIT 32.1 % (32.4-45.2); LYMPH % 8.8 % (8-40); MCH 26.9 pg (25.7-33.7); MCHC 31.1 g/dl (32.0-36.0); MEAN CELL VOLUME 86.5 fl (80-96); MEAN PLT VOLUME 9.5 fl (7.5-11.1); MONO % 10.6 % (3.8-10.2); NEUT % 78.2 % (42.8-82.8); PLATELET COUNT 315 K/MM3 (134-434); RBC 3.71 M/mm3 (3.60-5.2); RDW 17.4 % (11.6-15.6); WHITE BLOOD COUNT 9.6 K/mm3 (4.0-10.0)
[2017-04-15] MEDS ORDERED: INSULIN DETEMIR 100 UNITS/ML MDV SQ ONE (08:02)
[2017-04-15] MEDS ORDERED: INSULIN (NOVOLOG) ASPART 100 UNITS/ML 10ML VIAL ONE (08:02)
[2017-04-15 08:32] LABS: ALBUMIN 2.7 g/dl (3.4-5.0); ANION GAP 9 (8-16); BILIRUBIN,TOTAL 0.8 mg/dL (0.2-1.0); BLOOD UREA NITROGEN 26 mg/dL (7-18); CALCIUM 7.5 mg/dL (8.5-10.1); CHLORIDE 99 mmol/L (98-107); CO2 28 mmol/L (21-32); CREATININE 3.7 mg/dL (0.55-1.02); GLUCOSE,RANDOM 269 mg/dL (74-106); POTASSIUM 3.3 mmol/L (3.5-5.1); SGOT/AST 121 U/L (15-37); SGPT/ALT 54 U/L (12-78); SODIUM 136 mmol/L (136-145); TOT PROT 7.5 g/dl (6.4-8.2)
[2017-04-15 08:44] LABS: ALK PHOS 1406 U/L (45-117)
[2017-04-15] MEDS: SEVELAMER CARBONATE 800 MG TAB (FP) PO SCH ×3 (08:44→17:57)
[2017-04-15] MEDS: LOSARTAN POTASSIUM 100 MG TABLET PO SCH (10:14)
--- NOTE | 2017-04-15 10:47 | PN ---
Physical Exam: SUBJECTIVE: Patient seen and examined at bedside. Eating breakfast this AM. c/o continual LLE and thigh pain, which is "same as yesterday." Otherwise denies GUTIERRES , fever, chills, or changes in urinary or bowel habits. Had dialysis yesterday. States that she is now on heparin in preparation for her biopsy. OBJECTIVE: Vital Signs Period Temp Pulse Resp BP Sys/Ames Pulse Ox Last 24 Hr 97.7 F-98.9 F 86-101 16-20 142-186/66-107 96 GENERAL: The patient is awake, alert, and fully oriented, in no acute distress. Sitting in bed, eating breakfast. HEAD: Normal with no signs of trauma. EYES: PERRL, extraocular movements intact, sclera anicteric, conjunctiva clear. NECK: Trachea midline, supple. LUNGS: Breath sounds equal, clear to auscultation bilaterally, no wheezes, no crackles, no accessory muscle use. HEART: Regular rate and rhythm, S1, S2 without murmur, rub or gallop. ABDOMEN: Soft, nontender, nondistended, normoactive bowel sounds, no guarding EXTREMITIES: 2+ dorsalis pedis pulses, warm. LLE thigh: medial induration (L>R) , tender to palpation NEUROLOGICAL: Cranial nerves II through XII grossly intact. Laboratory Results 04/15/17 04/15/17 06:00 06:00 WBC 9.6 Hgb 10.0 L Hct 32.1 L Plt Count 315 Sodium 136 Potassium 3.3 L D Chloride 99 Carbon Dioxide 28 BUN 26 H Creatinine 3.7 H Random Glucose 269 H D Alkaline Phosphatase 1406 H Active Medications Generic Name Dose Route Start Last Admin Trade Name Freq PRN Reason Stop Dose Admin Acetaminophen 325 mg 04/12/17 22:29 04/15/17 02:04 Tylenol - PO 325 mg Q6H PRN Administration PAIN Acetaminophen 650 mg 04/13/17 09:42 04/14/17 16:51 Tylenol - PO 650 mg Q6H PRN Administration PAIN Clonidine 0.3 mg 04/12/17 22:30 04/15/17 05:52 Catapres - PO 0.3 mg TID ROSA MARIA Administration Gabapentin 200 mg 04/12/17 22:30 04/15/17 05:52 Neurontin - PO 200 mg TID [facility] MARIA Administration Heparin Sodium (Porcine) 1,000 unit 04/14/17 19:13 Heparin - IVPUSH PRN PRN Heparin Heparin Sodium (Porcine) 5,000 unit 04/14/17 19:13 04/15/17 05:52 Heparin - IVPUSH 5,000 unit PRN PRN Administration Heparin Hydralazine HCl 50 mg 04/12/17 22:30 04/15/17 05:52 Apresoline - PO 50 mg TID ROSA MARIA Administration Heparin Sodium (Porcine) 25, 500 mls @ 23.4 mls/hr 04/14/17 22:00 04/15/17 06 :14 000 unit/ Sodium Chloride IV 1,320 unit/hr TITR ROSA MARIA 26.4 mls/hr Protocol Titration 1,170 UNIT/HR Insulin Aspart 1 vial 04/13/17 07:00 04/15/17 06:30 Novolog Vial Sliding Scale - SQ 6 units ACHS [facility] Administration Protocol Insulin Detemir 15 units 04/12/17 22:30 04/15/17 06:31 Levemir Vial SQ 15 units BID@0700,2200 [facility] Administration Labetalol HCl 400 mg 04/12/17 22:30 04/15/17 05:52 Normodyne - PO 400 mg TID [facility] Administration Lidocaine HCl 20 ml 04/14/17 17:30 04/15/17 06:31 Xylocaine 2% Viscous Oral - MM Not Given TIDAC [facility] Losartan Potassium 100 mg 04/13/17 10:00 04/15/17 10:14 Losartan Potassium PO 100 mg DAILY [facility] Administration Oxycodone HCl 10 mg 04/13/17 09:42 04/15/17 02:03 Roxicodone - PO 10 mg Q6H PRN Administration PAIN LEVEL 6-10 Sevelamer Carbonate 1,600 mg 04/12/17 22:30 04/15/17 08:44 Renvela - PO 1,600 mg TIDCM [facility] Administration Microbiology 04/13/17 14:45 Blood - Pre-Dialysis Blood Culture - Preliminary NO GROWTH OBTAINED AFTER 24 HOURS, INCUBATION TO CONTINUE FOR 4 DAYS. 04/13/17 14:45 Blood - Pre-Dialysis Blood Culture - Preliminary NO GROWTH OBTAINED AFTER 24 HOURS, INCUBATION TO CONTINUE FOR 4 DAYS. ASSESSMENT/PLAN: #R/o pubic osteomyelitis, possible myositis LLE -pt for pubic bone and m. biopsy-spoke to IR, most likely will be done tomorrow -without new complaints, has been afebrile, without leukocytosis -last dialysis session yesterday (04/14/17) -will determine abx after result of biopsy #Diarrhea -will f/u C. diff, stool cx - pending Thank you Rika Palmer MD PGY-1 ID Team Visit type - Emergency Visit Emergency Visit: No - New Patient This patient is new to me today: No - Critical Care Critical Care patient: No
--- NOTE | 2017-04-15 12:54 | PN ---
Progress Note (short form) - Note Progress Note: Subjective: The patient was seen at the bedside, no complaints at this time Eliquis discontinued yesterday and heparin gtt started in preparation for IR guided biopsy. Will need to stop Heparin gtt 6 hours prior to procedure. Awaiting call back from Dr Coyle re: timing Current Medications Generic Name Dose Route Start Last Admin Trade Name Freq PRN Reason Stop Dose Admin Acetaminophen 325 mg 04/12/17 22:29 04/15/17 11:01 Tylenol - PO 325 mg Q6H PRN Administration PAIN Acetaminophen 650 mg 04/13/17 09:42 04/14/17 16:51 Tylenol - PO 650 mg Q6H PRN Administration PAIN Clonidine 0.3 mg 04/12/17 22:30 04/15/17 13:36 Catapres - PO 0.3 mg TID ROSA MARIA Administration Gabapentin 200 mg 04/12/17 22:30 04/15/17 13:36 Neurontin - PO 200 mg TID ROSA MARIA Administration Heparin Sodium (Porcine) 1,000 unit 04/14/17 19:13 Heparin - IVPUSH PRN PRN Heparin Heparin Sodium (Porcine) 5,000 unit 04/14/17 19:13 04/15/17 05:52 Heparin - IVPUSH 5,000 unit PRN PRN Administration Heparin Hydralazine HCl 50 mg 04/12/17 22:30 04/15/17 13:36 Apresoline - PO 50 mg TID ROSA MARIA Administration Heparin Sodium (Porcine) 25, 500 mls @ 23.4 mls/hr 04/14/17 22:00 04/15/17 06 :14 000 unit/ Sodium Chloride IV 1,320 unit/hr TITR ROSA MARIA 26.4 mls/hr Protocol Titration 1,170 UNIT/HR Insulin Aspart 1 vial 04/13/17 07:00 04/15/17 11:05 Novolog Vial Sliding Scale - SQ 4 units ACHS ROSA MARIA Administration Protocol Insulin Detemir 15 units 04/12/17 22:30 04/15/17 06:31 Levemir Vial SQ 15 units BID@0700,2200 ROSA MARIA Administration Labetalol HCl 400 mg 04/12/17 22:30 04/15/17 13:36 Normodyne - PO 400 mg TID ROSA MARIA Administration Lidocaine HCl 20 ml 04/14/17 17:30 04/15/17 11:06 Xylocaine 2% Viscous Oral - MM Not Given TIDAC ROSA MARIA Losartan Potassium 100 mg 04/13/17 10:00 04/15/17 10:14 Losartan Potassium PO 100 mg DAILY ROSA MARIA Administration Oxycodone HCl 10 mg 04/13/17 09:42 04/15/17 11:01 Roxicodone - PO 10 mg Q6H PRN Administration PAIN LEVEL 6-10 Sevelamer Carbonate 1,600 mg 04/12/17 22:30 04/15/17 12:11 Renvela - PO 1,600 mg TIDCM ROSA MARIA Administration Objective: Vital Signs Period Temp Pulse Resp BP Sys/Ames Pulse Ox Last 24 Hr 97.7 F-98.9 F 86-101 16-19 142-184/66-107 96 Physical Exam: General: NAD, A&Ox3 Lungs: CTA bilaterally Heart: RRR, S1S2 Abd: Soft, non-tender, non-distended. Normoactive bowel sounds Ext: B/l lower extremity edema. Left knee with medial mass, mobile, mildly tender CBCD WBC 9.6 K/mm3 (4.0-10.0) 04/15/17 06:00 RBC 3.71 M/mm3 (3.60-5.2) 04/15/17 06:00 Hgb 10.0 GM/dL (10.7-15.3) L 04/15/17 06:00 Hct 32.1 % (32.4-45.2) L 04/15/17 06:00 MCV 86.5 fl (80-96) 04/15/17 06:00 MCHC 31.1 g/dl (32.0-36.0) L 04/15/17 06:00 RDW 17.4 % (11.6-15.6) H 04/15/17 06:00 Plt Count 315 K/MM3 (134-434) 04/15/17 06:00 MPV 9.5 fl (7.5-11.1) 04/15/17 06:00 CMP Sodium 136 mmol/L (136-145) 04/15/17 06:00 Potassium 3.3 mmol/L (3.5-5.1) L D 04/15/17 06:00 Chloride 99 mmol/L (98-107) 04/15/17 06:00 Carbon Dioxide 28 mmol/L (21-32) 04/15/17 06:00 Anion Gap 9 (8-16) 04/15/17 06:00 BUN 26 mg/dL (7-18) H 04/15/17 06:00 Creatinine 3.7 mg/dL (0.55-1.02) H 04/15/17 06:00 Creat Clearance w eGFR 14.69 (>60) 04/15/17 06:00 Random Glucose 269 mg/dL (74-106) H D 04/15/17 06:00 Calcium 7.5 mg/dL (8.5-10.1) L 04/15/17 06:00 Total Bilirubin 0.8 mg/dL (0.2-1.0) 04/15/17 06:00 AST 121 U/L (15-37) H D 04/15/17 06:00 ALT 54 U/L (12-78) 04/15/17 06:00 Alkaline Phosphatase 1406 U/L (45-117) H 04/15/17 06:00 Total Protein 7.5 g/dl (6.4-8.2) 04/15/17 06:00 Albumin 2.7 g/dl (3.4-5.0) L 04/15/17 06:00 CARDIAC ENZYMES Creatine Kinase 145 IU/L (26-192) 04/12/17 16:48 Troponin I < 0.02 ng/ml (0.00-0.05) 04/12/17 16:48 Microbiology 04/15/17 06:30 Stool Clostridium difficile Antigen (SHI) - Final 04/15/17 06:30 Stool Clostridium difficile Toxin Assay - Final 04/13/17 14:45 Blood - Pre-Dialysis Blood Culture - Preliminary NO GROWTH OBTAINED AFTER 24 HOURS, INCUBATION TO CONTINUE FOR 4 DAYS. 04/13/17 14:45 Blood - Pre-Dialysis Blood Culture - Preliminary NO GROWTH OBTAINED AFTER 24 HOURS, INCUBATION TO CONTINUE FOR 4 DAYS. Assessment: This is a 26 year old female with PMHx of ESRD (M,W,F), HTN, IDDM, hx of DVT, recent PE (on coumadin), on home O2, anemia, who presented to the ED with headache, diarrhea, shortness of breath. Plan: 1) Volume overload - 2/2 missed outpatient HD appointment on Wednesday - HD sessions 04/13 and 04/14. Next session tomorrow - Appreciate nephrology consult 2) Lower extremity and left hip pain - CT showed possible pubic osteomyelitis. Fluid collection seen in medial gastrocnemius muscle of the right lower leg - Seen by ortho who is recommending drainage of fluid collection with biopsy and biopsy of pubis - IR consult placed for biopsy. On Heparin gtt in preparation for biopsy (how 6 hours prior to biopsy) - Discussed with Dr. Saha, will hold off on abx until biopsy results - Blood cultures with NGTD - Right muscle biopsy 08/26/2016: chronic and active necrotizing mypathy, severe - Left thigh biopsy 07/25/2015: Granulation and chronic inflammation involving epimysial/perifascial connective tissue and underlying skeletal muscle - F/u rheumatology consult: saw the patient in 2015, no diagnosis made at the time 3) HTN - Goal BP <140/90 - Continue Losartan 100mg po daily - Continue Labetolol 400mg po tid - Continue Hydralazine 50mg po tid - Continue Clonidine 0.3mg po tid - Monitor closely, may need to add additional agent if remains hypertensive 4) Hx of DVT and recent PE - Heparin gtt - Will need to be restarted on Eliquis 5mg po bid after biopsy 5) Anemia - At baseline - Continue to monitor 6) IDDM - Levemir 15u sq bid - ISS ACHS - BGM ACHS 7) Diarrhea - Resolved - C.diff Ag and toxin positive - Abx per ID - Special contact precautions 8) Tongue sores - No evidence of thrush - Will give viscous lidocaine tidac 9) F/E/N: - Renal, diabetic diet - Hypokalemia: replete per nephrology 10) Prophylaxis: - Continue Heparin gtt, will need to hold 6 hours prior to biopsy (awaiting to hear timing) 11) Dispo: - Requires continued inpatient care CODE STATUS: FULL CODE Visit type - Emergency Visit Emergency Visit: Yes ED Registration Date: 04/12/17 Care time: The patient presented to the Emergency Department on the above date and was hospitalized for further evaluation of their emergent condition. - New Patient This patient is new to me today: No - Critical Care Critical Care patient: No
[2017-04-15] MEDS: metroNIDAZOLE 250 MG TABLET PO SCH ×2 (15:12→21:02)
--- NOTE | 2017-04-15 15:50 | PN ---
Progress Note (short form) - Note Progress Note: Renal follow up for ESRD on HD Pt seen and examined at the bedside awake and alert continues to have pain in hip and left leg, improved with pain meds no sob, chest pain, abd pain s/p dialysis yesterday for IR biopsy today Vital Signs Temperature 98.2 F 04/15/17 13:53 Pulse Rate 102 H 04/15/17 13:53 Respiratory Rate 16 04/15/17 13:53 Blood Pressure 164/94 04/15/17 13:53 O2 Sat by Pulse Oximetry (%) 100 04/15/17 09:00 Intake & Output 04/12/17 04/13/17 04/14/17 04/15/17 23:59 23:59 23:59 23:59 Intake Total 440 1560 960 Balance 440 1560 960 Weight 65.771 kg 65.771 kg 67.132 kg NAD awake and alert RRR CTA 2+ LE edema + tenderness CBC, BMP 04/15/17 06:00 04/15/17 06:00 Current Medications Acetaminophen (Tylenol -) 325 mg PO Q6H PRN PRN Reason: PAIN Last Admin: 04/15/17 11:01 Dose: 325 mg Acetaminophen (Tylenol -) 650 mg PO Q6H PRN PRN Reason: PAIN Last Admin: 04/14/17 16:51 Dose: 650 mg Clonidine (Catapres -) 0.3 mg PO TID ON LICENSE OF [facility] Last Admin: 04/15/17 13:36 Dose: 0.3 mg Gabapentin (Neurontin -) 200 mg PO TID ON LICENSE OF [facility] Last Admin: 04/15/17 13:36 Dose: 200 mg Heparin Sodium (Porcine) (Heparin -) 1,000 unit IVPUSH PRN PRN PRN Reason: Heparin Heparin Sodium (Porcine) (Heparin -) 5,000 unit IVPUSH PRN PRN PRN Reason: Heparin Last Admin: 04/15/17 15:13 Dose: 5,000 unit Hydralazine HCl (Apresoline -) 50 mg PO TID ROSA MARIA Last Admin: 04/15/17 13:36 Dose: 50 mg Heparin Sodium (Porcine) 25, (000 unit/ Sodium Chloride) 500 mls @ 23.4 mls/hr IV TITR ROSA MARIA; 1,170 UNIT/HR PRN Reason: Protocol Last Titration: 04/15/17 15:13 Dose: 1,470 unit/hr, 29.4 mls/hr Insulin Aspart (Novolog Vial Sliding Scale -) 1 vial SQ ACHS ON LICENSE OF [facility] PRN Reason: Protocol Last Admin: 04/15/17 11:05 Dose: 4 units Insulin Detemir (Levemir Vial) 15 units SQ BID@0700,2200 ON LICENSE OF [facility] Last Admin: 04/15/17 06:31 Dose: 15 units Labetalol HCl (Normodyne -) 400 mg PO TID ON LICENSE OF [facility] Last Admin: 04/15/17 13:36 Dose: 400 mg Lidocaine HCl (Xylocaine 2% Viscous Oral -) 20 ml MM TIDAC ON LICENSE OF [facility] Last Admin: 04/15/17 11:06 Dose: Not Given Losartan Potassium (Losartan Potassium) 100 mg PO DAILY ON LICENSE OF [facility] Last Admin: 04/15/17 10:14 Dose: 100 mg Metronidazole (Flagyl -) 500 mg PO TID ON LICENSE OF [facility] Last Admin: 04/15/17 15:12 Dose: 500 mg Oxycodone HCl (Roxicodone -) 10 mg PO Q6H PRN PRN Reason: PAIN LEVEL 6-10 Last Admin: 04/15/17 11:01 Dose: 10 mg Sevelamer Carbonate (Renvela -) 1,600 mg PO TIDCM ON LICENSE OF [facility] Last Admin: 04/15/17 12:11 Dose: 1,600 mg 26 year old woman with PMhx of ESRD on HD (MWF), Hypertension, DM Typw 1, PE on Eliqus who presented to the ED wit complaints of GUTIERRES, diarrhea, and left LE pain. #suspected Pelvic inflamation/fluid collection in LLE for IR biopsy today holding Abx thus far blood cultures w/o growth this admission last positive blood culture was MRSA in 2014 Ortho follow up pain control edema improved s/p fluid removal with dialysis #ESRD on HD s/p dialysis yesterday for next treatment tomorrow with continued aggressive UF #Hypertension not at goal add Nifedpine ER 30mg daily goal BP < 140/90 Nathan Vo DO
--- NOTE | 2017-04-15 16:39 | PN ---
Teaching Attending Note Name of Resident: Rika Palmer ATTENDING PHYSICIAN STATEMENT I saw and evaluated the patient. I reviewed the resident's note and discussed the case with the resident. I agree with the resident's findings and plan as documented. SUBJECTIVE: C/O L LE pain No fever/ chills Afebrile WBC WNL C difficile + OBJECTIVE: Non-toxic appearing Cor S1S2 Lungs clear Abdo soft, non tender + L LE induration ASSESSMENT AND PLAN: R/O L pubic osteomyelitis ESRD Hx MRSA + C difficile Awaiting bx/ cultures Observe off antibiotics
[2017-04-15] MEDS: NIFEdipine E.R. 30 MG TABLET (FP) PO SCH (16:46)
--- NOTE | 2017-04-15 16:54 | CONSULT ---
Consult Consult Specialty:: Rheumatology - History of Present Illness History of Present Illness: 26-year-old female with past medical history of DM type I since age 10, ESRD on HD since 2012, HTN, Asthma, S/P PE on Eliquis. Hx of atrial myxoma in 2013. MRSA bacteremia in 2014 secondary to infected PermCath. She had osteomyelitis of the left toe, again biopsy proven and culture positive for MRSA. 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 In the past MILIND, anti-[employer] were negative. Admitted with a 10 day history of diarrhea and pain in the left groin. HPI. The patient reports a 2 year history of mild pain in both hips (groins), mainly in the morning, with no morning stiffness and improved with walking. Two weeks ago she had progression of pain in the left groin related to activity , standing up or walking. She has a 2 month history of swelling of the right calf and recent localized swelling close to the medial aspect of the left knee. X rays of the pelvis revealed widening of the sacro-iliac joints and symphysis pubis (present in 09/24/15). CT scan of the pelvis and left extremity reported with osseous structures of the pelvis, proximal femora and lower spine demonstrate sclerotic appearance most suggestive of renal osteodystrophy. In comparison to a lower extremity CT study of 08/07/2016 interval development of partial erosion of the left pelvic tubercle is noted suggestive of pubic osteomyelitis. There was increased widening of the sacroiliac joints bilaterally with associated mild cortical irregularity consistent with sacroiliitis probably related to renal osteodystrophy Fluid collection is seen within the proximal aspect of the right medial gastrocnemius muscle. 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, PE, DVT) Pulmonary: Yes: Pulmonary Embolus Renal/: Yes: Renal Failure, Hemodialysis ...LMP: 08/17/14 ...LMP Comment: pt states "years ago" ...: No Infectious Disease: Yes: MRSA (history of bacteremia, recent mrsa foot abscess) Endocrine: Yes: Diabetes Mellitus (type 1 on insulin pump) Additional Medical History: DVT, PE on coumadin - Past Surgical History Past Surgical History: Yes: AV Fistula/Graft (Right arm) - Alcohol/Substance Use Hx Alcohol Use: No History of Substance Use: reports: None - Smoking History Smoking history: Never smoked Have you smoked in the past 12 months: No Aproximately how many cigarettes per day: 10 - Social History Usual Living Arrangement: With Parent ADL: Independent Occupation: unemployed History of Recent Travel: No Home Medications - Allergies Allergies/Adverse Reactions: Allergies Allergy/AdvReac Type Severity Reaction Status Date / Time No Known Drug Allergies Allergy Verified 04/12/17 15:14 - Home Medications Home Medications: Ambulatory Orders Gabapentin 200 mg PO TID 03/11/16 Sevelamer Carbonate [Renvela -] 1,600 mg PO TIDCM #60 tab 07/14/16 Acetaminophen [Tylenol .Regular Strength -] 325 mg PO Q6H PRN #0 tablet Insulin Lispro [Humalog Kwikpen U-100] See Protocol SQ TID 12/21/16 Losartan Potassium [Cozaar -] 100 mg PO DAILY 12/21/16 Insulin (Levemir) [Levemir Flexpen -] 15 units SQ BID #5 pen 12/24/16 Clonidine HCl [Catapres -] 0.3 mg PO TID tablet 12/26/16 Labetalol HCl [Normodyne -] 400 mg PO TID #60 tablet 12/26/16 Hydralazine HCl [Apresoline -] 50 mg PO TID #60 tablet 01/12/17 Apixaban [Eliquis -] 2.5 mg PO BID #60 tablet 03/06/17 Buspirone HCl [Buspar -] 10 mg PO TID PRN 04/12/17 Family Disease History - Family Disease History Family Disease History: Diabetes: Grandparent (HTN), Heart Disease: Grandparent , Other: Father (unknown), Mother (HTN) Review of Systems - Review of Systems Constitutional: reports: Malaise Eyes: reports: No Symptoms HENT: reports: No Symptoms Neck: reports: No Symptoms Cardiovascular: reports: No Symptoms Respiratory: reports: SOB Gastrointestinal: reports: Diarrhea Genitourinary: reports: No Symptoms Musculoskeletal: reports: Other (See HPI) Neurological: reports: No Symptoms Physical Exam Vital Signs: Vital Signs Temperature 98.2 F 04/15/17 13:53 Pulse Rate 102 H 04/15/17 13:53 Respiratory Rate 16 04/15/17 13:53 Blood Pressure 164/94 04/15/17 13:53 O2 Sat by Pulse Oximetry (%) 100 04/15/17 09:00 Constitutional: Yes: Mild Distress Eyes: Yes: WNL HENT: Yes: WNL Neck: Yes: WNL Cardiovascular: Yes: WNL Respiratory: Yes: WNL Gastrointestinal: Yes: WNL Musculoskeletal: Yes: Other (Minimal tenderness in the left hip and no tenderness in the sacro-iliac joints. No other active joints.) Labs: CBC, BMP 04/15/17 06:00 04/15/17 06:00 Laboratory Tests 04/13/17 04/13/17 04/13/17 06:30 06:33 14:45 ESR 57 H Calcium Total Bilirubin AST ALT Alkaline Phosphatase Albumin MILIND Screen Negative Hepatitis A Ab Total Negative Hep Bs Antigen Negative Hep Bs Antibody Reactive Hep B Core Total Ab Negative Hepatitis C Antibody 0.1 04/15/17 06:00 ESR Calcium 7.5 L Total Bilirubin 0.8 AST 121 H D ALT 54 Alkaline Phosphatase 1406 H Albumin 2.7 L MILIND Screen Hepatitis A Ab Total Hep Bs Antigen Hep Bs Antibody Hep B Core Total Ab Hepatitis C Antibody Problem List - Problems (1) Osteomyelitis Assessment/Plan: Rule out osteomyleitis of the left pelvic tubercle. The patient does not have hip or sacro-iliac arthritis, Radiological changes probably related to renal osteodystrophy. Plan: The patient is scheduled to have biopsy of the pelvic tubercle. If possible obtain bone biopsy to evaluate details of renal osteodystrophy. Code(s): M86.9 - OSTEOMYELITIS, UNSPECIFIED Qualifiers: Osteomyelitis location: foot Laterality: right Qualified Code(s): M86.171 - Other acute osteomyelitis, right ankle and foot
[2017-04-15] MEDS ORDERED: ALBUTEROL SO4 2.5/IPRATROPIUM 0.5 INH SOL 3 ML VIAL.NEB. NEB ONE (19:30)
[2017-04-15] MEDS: HEPARIN SOD,PORK IN 0.45% NACL 25,000 UNITS/500 ML INFUS.BAG IVPB SCH (20:54)
[2017-04-15] MEDS ORDERED: metroNIDAZOLE 250 MG TABLET PO SCH (22:00)
[2017-04-16] MEDS: INSULIN SLIDING SCALE (NOVOLOG) 1 VIAL SQ SCH ×4 (06:10→21:08)
[2017-04-16] MEDS: LIDOCAINE VISCOUS 2% ORAL/TOP 20 ML UNIT-DOSE CUP MM SCH ×3 (06:23→16:37)
[2017-04-16] MEDS: hydrALAZINE HCL 50 MG TABLET (FP) PO SCH ×3 (06:25→21:00)
[2017-04-16] MEDS: GABAPENTIN 100 MG CAPSULE (FP) PO SCH ×3 (06:25→21:00)
[2017-04-16] MEDS: LABETALOL HCL 200 MG TABLET (FP) PO SCH ×3 (06:25→21:00)
[2017-04-16] MEDS: oxyCODONE HCL 5 MG TABLET PO PRN ×3 (06:26→20:59)
[2017-04-16] MEDS: cloNIDine HCL 0.1 MG TABLET PO SCH ×3 (06:26→21:00)
[2017-04-16] MEDS: metroNIDAZOLE 250 MG TABLET PO SCH ×3 (06:26→21:00)
[2017-04-16] MEDS: INSULIN DETEMIR 100 UNITS/ML MDV SQ SCH ×2 (06:26→21:07)
[2017-04-16] MEDS: ACETAMINOPHEN 325 MG TABLET (FP) PO PRN ×3 (06:26→20:59)
[2017-04-16] MEDS: ALBUTEROL SO4 2.5/IPRATROPIUM 0.5 INH SOL 3 ML VIAL.NEB. NEB PRN ×2 (07:02→21:10)
--- NOTE | 2017-04-16 07:21 | PN ---
Physical Exam: SUBJECTIVE: Patient seen and examined at bedside. Receiving HD. Wants to go home and come back for IR procedure. OBJECTIVE: Vital Signs Period Temp Pulse Resp BP Sys/Ames Pulse Ox Last 24 Hr 98.0 F-98.2 F 87-102 16-20 140-184/83-101 100-100 Physical Exam: General: NAD, A&Ox3 Lungs: CTA bilaterally Heart: RRR, S1S2 Abd: Soft, non-tender, non-distended. Normoactive bowel sounds Ext: B/l lower extremity edema. Left knee with medial mass, mobile, mildly tender Laboratory Results - last 24 hr 04/15/17 04/15/17 04/15/17 06:00 06:00 06:30 WBC 9.6 RBC 3.71 Hgb 10.0 L Hct 32.1 L MCV 86.5 MCH 26.9 MCHC 31.1 L RDW 17.4 H Plt Count 315 MPV 9.5 Neutrophils % 78.2 Lymphocytes % 8.8 D Monocytes % 10.6 H Eosinophils % 1.8 Basophils % 0.6 PTT (Actin FS) Sodium 136 Potassium 3.3 L D Chloride 99 Carbon Dioxide 28 Anion Gap 9 BUN 26 H Creatinine 3.7 H Creat Clearance w eGFR 14.69 POC Glucometer Random Glucose 269 H D Calcium 7.5 L Total Bilirubin 0.8 AST 121 H D ALT 54 Alkaline Phosphatase 1406 H Total Protein 7.5 Albumin 2.7 L Stool Occult Blood Negative 04/15/17 04/15/17 04/15/17 11:02 12:45 16:41 WBC RBC Hgb Hct MCV MCH MCHC RDW Plt Count MPV Neutrophils % Lymphocytes % Monocytes % Eosinophils % Basophils % PTT (Actin FS) 31.7 Sodium Potassium Chloride Carbon Dioxide Anion Gap BUN Creatinine Creat Clearance w eGFR POC Glucometer 228 173 Random Glucose Calcium Total Bilirubin AST ALT Alkaline Phosphatase Total Protein Albumin Stool Occult Blood 04/15/17 04/15/17 04/16/17 20:50 21:55 03:15 WBC RBC Hgb Hct MCV MCH MCHC RDW Plt Count MPV Neutrophils % Lymphocytes % Monocytes % Eosinophils % Basophils % PTT (Actin FS) 36.6 H Sodium Potassium Chloride Carbon Dioxide Anion Gap BUN Creatinine Creat Clearance w eGFR POC Glucometer 169 110 Random Glucose Calcium Total Bilirubin AST ALT Alkaline Phosphatase Total Protein Albumin Stool Occult Blood 04/16/17 06:05 WBC RBC Hgb Hct MCV MCH MCHC RDW Plt Count MPV Neutrophils % Lymphocytes % Monocytes % Eosinophils % Basophils % PTT (Actin FS) Sodium Potassium Chloride Carbon Dioxide Anion Gap BUN Creatinine Creat Clearance w eGFR POC Glucometer 117 Random Glucose Calcium Total Bilirubin AST ALT Alkaline Phosphatase Total Protein Albumin Stool Occult Blood Active Medications Generic Name Dose Route Start Last Admin Trade Name Freq PRN Reason Stop Dose Admin Acetaminophen 325 mg 04/12/17 22:29 04/15/17 11:01 Tylenol - PO 325 mg Q6H PRN Administration PAIN Acetaminophen 650 mg 04/13/17 09:42 04/16/17 06:26 Tylenol - PO 650 mg Q6H PRN Administration PAIN Albuterol/Ipratropium 1 amp 04/15/17 19:30 04/16/17 07:02 Duoneb - NEB 1 amp Q6H PRN Administration SHORTNESS OF BREATH Clonidine 0.3 mg 04/12/17 22:30 04/16/17 06:26 Catapres - PO 0.3 mg TID ROSA MARIA Administration Epoetin Abiel 6,000 unit 04/16/17 06:00 Epogen - IVPUSH 04/16/17 06:01 ONCE ONE Gabapentin 200 mg 04/12/17 22:30 04/16/17 06:25 Neurontin - PO 200 mg TID ROSA MARIA Administration Heparin Sodium (Porcine) 1,000 unit 04/14/17 19:13 Heparin - IVPUSH PRN PRN Heparin Heparin Sodium (Porcine) 5,000 unit 04/14/17 19:13 04/15/17 23:27 Heparin - IVPUSH 5,000 unit PRN PRN Administration Heparin Hydralazine HCl 50 mg 04/12/17 22:30 04/16/17 06:25 Apresoline - PO 50 mg TID [facility] Administration HEPARIN SOD,PORK IN 0.45% NACL 25,000 units in 500 mls @ 23.4 mls/hr 04/15/17 20:30 04/15/17 23:27 Heparin-1/2ns 25,000 Units/500 IVPB 1,620 unit/hr TITR ROSA MARIA 32.4 mls/hr Protocol Titration 1,170 UNIT/HR Insulin Aspart 1 vial 04/13/17 07:00 04/16/17 06:10 Novolog Vial Sliding Scale - SQ Not Given ACHS [facility] Protocol Insulin Detemir 15 units 04/12/17 22:30 04/16/17 06:26 Levemir Vial SQ 15 units BID@0700,2200 ROSA MARIA Administration Labetalol HCl 400 mg 04/12/17 22:30 04/16/17 06:25 Normodyne - PO 400 mg TID ROSA MARIA Administration Lidocaine HCl 20 ml 04/14/17 17:30 04/16/17 06:23 Xylocaine 2% Viscous Oral - MM Not Given TIDAC [facility] Losartan Potassium 100 mg 04/13/17 10:00 04/15/17 10:14 Losartan Potassium PO 100 mg DAILY ROSA MARIA Administration Metronidazole 500 mg 04/15/17 15:00 04/16/17 06:26 Flagyl - PO 500 mg TID ROSA MARIA Administration Nifedipine 30 mg 04/15/17 16:00 04/15/17 16:46 Procardia Xl - PO 30 mg DAILY ROSA MARIA Administration Oxycodone HCl 10 mg 04/13/17 09:42 04/16/17 06:26 Roxicodone - PO 10 mg Q6H PRN Administration PAIN LEVEL 6-10 Sevelamer Carbonate 1,600 mg 04/12/17 22:30 04/15/17 17:57 Renvela - PO 1,600 mg TIDCM ROSA MARIA Administration ASSESSMENT/PLAN 26 year-old female with PMH significant for HTN, IDDM, h/o PE and DVT on coumadin, ESRD (M,W,F), and home O2 dependent. Admitted for volume overload after missing HD session. Also admitted for right lower leg fluid collection, and left hip pain. ESRD on HD (M, W, F) --HD today, next session Wednesday Right gastrocnemius muscle fluid collection --plan is for IR drainage with biopsy; now scheduled for next 04/20 Left hip pain --possible pubic osteo on CT --plan is for biopsy; now scheduled for next 04/20 --per ID, hold off on antibiotics Hypertension --continue losartan, labetolol, clonidine, nifedipine, hydralazine h/o DVT and PE --on heparin drip pending IR procedures Anemia --h/h stable IDDM --Levemir BID --Novolog sliding scale coverage C. difficile --continue metronidazole PO (day #2); needs 10-14 day course FEN Fluids: PO intake adequate Electrolytes: replete as indicated Nutrition: renal diabetic DVT prophylaxis: continue heparin drip, PTT goal 60-80; per Glenny Espinoza in IR, stop heparin drip and make NPO on Wednesday at midnight for Wednesday procedure Dispo: continues to require inpatient care. Full Code. Visit type - Emergency Visit Emergency Visit: Yes ED Registration Date: 04/12/17 Care time: The patient presented to the Emergency Department on the above date and was hospitalized for further evaluation of their emergent condition. - New Patient This patient is new to me today: Yes Date on this admission: 04/17/17 - Critical Care Critical Care patient: No
[2017-04-16 07:48] LABS: HEMATOCRIT 29.8 % (32.4-45.2); HEMOGLOBIN 9.1 GM/dL (10.7-15.3); MCH 26.7 pg (25.7-33.7); MCHC 30.7 g/dl (32.0-36.0); MEAN CELL VOLUME 87.1 fl (80-96); MEAN PLT VOLUME 9.5 fl (7.5-11.1); PLATELET COUNT 319 K/MM3 (134-434); RBC 3.42 M/mm3 (3.60-5.2); RDW 16.7 % (11.6-15.6); WHITE BLOOD COUNT 11.3 K/mm3 (4.0-10.0)
[2017-04-16] MEDS: HEPARIN NA (PORCINE) 5,000 UNITS/ML 1ML VIAL IVPUSH PRN ×2 (09:11→16:54)
[2017-04-16] MEDS: SEVELAMER CARBONATE 800 MG TAB (FP) PO SCH ×3 (09:11→16:59)
[2017-04-16] MEDS ORDERED: EPOETIN ALFA 3,000 UNIT/1 ML ML IVPUSH ONE (09:15)
[2017-04-16] MEDS: LOSARTAN POTASSIUM 100 MG TABLET PO SCH (10:02)
--- NOTE | 2017-04-16 12:16 | PN ---
Progress Note (short form) - Note Progress Note: Renal follow up for ESRD on HD Pt seen and examined during dialysis BP stable 148/90, UF goal is 3.5L pain persists in the hip and thigh Vital Signs Temperature 97.8 F 04/16/17 10:00 Pulse Rate 94 H 04/16/17 11:45 Respiratory Rate 18 04/16/17 11:45 Blood Pressure 148/93 04/16/17 11:45 O2 Sat by Pulse Oximetry (%) 100 04/15/17 21:00 Intake & Output 04/13/17 04/14/17 04/15/17 04/16/17 23:59 23:59 23:59 23:59 Intake Total 440 1560 1107 826.8 Balance 440 1560 1107 826.8 Weight 65.771 kg 67.132 kg 66.86 kg NAD 1+ LE edema CBC, BMP 04/16/17 05:40 04/15/17 06:00 Current Medications Acetaminophen (Tylenol -) 325 mg PO Q6H PRN PRN Reason: PAIN Last Admin: 04/15/17 11:01 Dose: 325 mg Acetaminophen (Tylenol -) 650 mg PO Q6H PRN PRN Reason: PAIN Last Admin: 04/16/17 06:26 Dose: 650 mg Albuterol/Ipratropium (Duoneb -) 1 amp NEB Q6H PRN PRN Reason: SHORTNESS OF BREATH Last Admin: 04/16/17 07:02 Dose: 1 amp Clonidine (Catapres -) 0.3 mg PO TID [facility] Last Admin: 04/16/17 06:26 Dose: 0.3 mg Gabapentin (Neurontin -) 200 mg PO TID [facility] Last Admin: 04/16/17 06:25 Dose: 200 mg Heparin Sodium (Porcine) (Heparin -) 1,000 unit IVPUSH PRN PRN PRN Reason: Heparin Heparin Sodium (Porcine) (Heparin -) 5,000 unit IVPUSH PRN PRN PRN Reason: Heparin Last Admin: 04/16/17 09:11 Dose: 5,000 unit Hydralazine HCl (Apresoline -) 50 mg PO TID [facility] Last Admin: 04/16/17 06:25 Dose: 50 mg HEPARIN SOD,PORK IN 0.45% NACL (Heparin-1/2ns 25,000 Units/500) 25,000 units in 500 mls @ 23.4 mls/hr IVPB TITR ROSA MARIA; 1,170 UNIT/HR PRN Reason: Protocol Last Titration: 04/15/17 23:27 Dose: 1,620 unit/hr, 32.4 mls/hr Insulin Aspart (Novolog Vial Sliding Scale -) 1 vial SQ ACHS [facility] PRN Reason: Protocol Last Admin: 04/16/17 11:20 Dose: 2 units Insulin Detemir (Levemir Vial) 15 units SQ BID@0700,2200 [facility] Last Admin: 04/16/17 06:26 Dose: 15 units Labetalol HCl (Normodyne -) 400 mg PO TID [facility] Last Admin: 04/16/17 06:25 Dose: 400 mg Lidocaine HCl (Xylocaine 2% Viscous Oral -) 20 ml MM TIDAC [facility] Last Admin: 04/16/17 06:23 Dose: Not Given Losartan Potassium (Cozaar -) 100 mg PO DAILY [facility] Metronidazole (Flagyl -) 500 mg PO TID [facility] Last Admin: 04/16/17 06:26 Dose: 500 mg Nifedipine (Procardia Xl -) 30 mg PO DAILY [facility] Last Admin: 04/15/17 16:46 Dose: 30 mg Sevelamer Carbonate (Renvela -) 1,600 mg PO TIDCM [facility] Last Admin: 04/16/17 09:11 Dose: 1,600 mg 26 year old woman with PMhx of ESRD on HD (MWF), Hypertension, DM Typw 1, PE on Eliqus who presented to the ED wit complaints of GUTIERRES, diarrhea, and left LE pain. #suspected Pelvic inflamation/fluid collection in LLE IR biopsy deferred to Wednesday continue pain control prior biopsy showed muscle necorosis - ? Diabetic myonecrosis pain control with NSAIDs ID following, not on Abx as of yet pt with uncrolled secondary hyperparathyrodism, PTH > 3000 as outpatient on Senspiar, parathyroidectomy was discussed with the patient by her primary pearl maker will repeat PTH level this admission contineu Sensipar #ESRD on HD tolerating dialysis and UF well today Fluid restriction, salt restriction dose all meds for intermittent HD will plan for isolated UF tomorrow #Hypertension not at goal BP better controlled continue current meds Nathan Vo DO
[2017-04-16 12:33] LABS: ALBUMIN 2.6 g/dl (3.4-5.0); ANION GAP 9 (8-16); BILIRUBIN,TOTAL 0.7 mg/dL (0.2-1.0); BLOOD UREA NITROGEN 45 mg/dL (7-18); CALCIUM 8.1 mg/dL (8.5-10.1); CHLORIDE 99 mmol/L (98-107); CO2 27 mmol/L (21-32); CREATININE 5.3 mg/dL (0.55-1.02); GLUCOSE,RANDOM 103 mg/dL (74-106); PHOSPHOROUS 4.6 mg/dL (2.5-4.9); POTASSIUM 4.3 mmol/L (3.5-5.1); SGOT/AST 97 U/L (15-37); SGPT/ALT 60 U/L (12-78); SODIUM 135 mmol/L (136-145); TOT PROT 7.4 g/dl (6.4-8.2)
[2017-04-16 12:47] LABS: ALK PHOS 1366 U/L (45-117)
[2017-04-16] MEDS: NIFEdipine E.R. 30 MG TABLET (FP) PO SCH (13:54)
[2017-04-16] MEDS: CINACALCET HCL 30 MG TAB (FP) PO SCH (14:20)
--- NOTE | 2017-04-16 16:26 | PN ---
Physical Exam: SUBJECTIVE: Patient seen and examined at bedside. Dialysis session completed this AM. Pt still c/o LLE pain, however denies GUTIERRES, fever, chills, abdominal pain , or loose BMs. Pt for bx Wednesday with IR. Overnight, pt afebrile. No acute events. Pt will need to be off heparin gtt for 6 hrs prior to bx. OBJECTIVE: Vital Signs Period Temp Pulse Resp BP Sys/Ames Pulse Ox Last 24 Hr 97.8 F-98.4 F 87-106 16-20 122-168/70-101 100 GENERAL: The patient is sitting in bed. Awake, alert, and fully oriented, in no acute distress. HEAD: Normal with no signs of trauma. EYES: PERRL, extraocular movements intact, sclera anicteric, conjunctiva clear. NECK: Trachea midline, supple. LUNGS: Breath sounds equal, clear to auscultation bilaterally, no wheezes, no crackles, no accessory muscle use. HEART: Regular rate and rhythm, S1, S2 without murmur, rub or gallop. ABDOMEN: Soft, nontender, nondistended, normoactive bowel sounds, no guarding EXTREMITIES: 2+ dorsalis pedis pulses, trace edema in lower extremities L>R. L induration medial thigh NEUROLOGICAL: Cranial nerves II through XII grossly intact. Laboratory Results 04/16/17 04/16/17 05:40 12:13 WBC 11.3 H RBC 3.42 L Hgb 9.1 L Hct 29.8 L Plt Count 319 Sodium 135 L Potassium 4.3 Chloride 99 Carbon Dioxide 27 BUN 45 H Creatinine 5.3 H Calcium 8.1 L Phosphorus 4.6 Alkaline Phosphatase 1366 H D Microbiology 04/15/17 06:30 Stool Escherichia coli 0157 Culture - Final NO GROWTH OF VIBRIO SPECIES OBTAINED NO GROWTH OF E COLI 0157 OBTAINED 04/15/17 06:30 Stool Clostridium difficile Antigen (SHI) - Final 04/15/17 06:30 Stool Clostridium difficile Toxin Assay - Final 04/15/17 06:30 Stool Salmonella/Shigella Culture - Preliminary 04/15/17 06:30 Stool Yersinia Culture - Preliminary NO ENTERIC PATHOGENS, 24 HOURS, ON PRIMARY PLATES NO ENTERIC PATHOGENS, 24 HOURS, ON PRIMARY PLATES 04/13/17 14:45 Blood - Pre-Dialysis Blood Culture - Preliminary NO GROWTH OBTAINED AFTER 72 HOURS, INCUBATION TO CONTINUE FOR 2 DAYS. 04/13/17 14:45 Blood - Pre-Dialysis Blood Culture - Preliminary NO GROWTH OBTAINED AFTER 72 HOURS, INCUBATION TO CONTINUE FOR 2 DAYS. Active Medications Generic Name Dose Route Start Last Admin Trade Name Jase PRN Reason Stop Dose Admin Acetaminophen 325 mg 04/12/17 22:29 04/16/17 13:52 Tylenol - PO 325 mg Q6H PRN Administration PAIN Acetaminophen 650 mg 04/13/17 09:42 04/16/17 06:26 Tylenol - PO 650 mg Q6H PRN Administration PAIN Albuterol/Ipratropium 1 amp 04/15/17 19:30 04/16/17 07:02 Duoneb - NEB 1 amp Q6H PRN Administration SHORTNESS OF BREATH Cinacalcet 60 mg 04/16/17 13:15 04/16/17 14:20 Sensipar - PO 60 mg DAILY ROSA [facility]IA Administration Clonidine 0.3 mg 04/12/17 22:30 04/16/17 13:54 Catapres - PO 0.3 mg TID ROSA MARIA Administration Gabapentin 200 mg 04/12/17 22:30 04/16/17 13:54 Neurontin - PO 200 mg TID ROS[facility]IA Administration Heparin Sodium (Porcine) 1,000 unit 04/14/17 19:13 Heparin - IVPUSH PRN PRN Heparin Heparin Sodium (Porcine) 5,000 unit 04/14/17 19:13 04/16/17 09:11 Heparin - IVPUSH 5,000 unit PRN PRN Administration Heparin Hydralazine HCl 50 mg 04/12/17 22:30 04/16/17 13:55 Apresoline - PO 50 mg TID ROSA MARIA Administration HEPARIN SOD,PORK IN 0.45% NACL 25,000 units in 500 mls @ 23.4 mls/hr 04/15/17 20:30 04/15/17 23:27 Heparin-1/2ns 25,000 Units/500 IVPB 1,620 unit/hr TITR ROSA MARIA 32.4 mls/hr Protocol Titration 1,170 UNIT/HR Insulin Aspart 1 vial 04/13/17 07:00 04/16/17 11:20 Novolog Vial Sliding Scale - SQ 2 units ACHS [facility] Administration Protocol Insulin Detemir 15 units 04/12/17 22:30 04/16/17 06:26 Levemir Vial SQ 15 units BID@0700,2200 [facility] Administration Labetalol HCl 400 mg 04/12/17 22:30 04/16/17 13:54 Normodyne - PO 400 mg TID [facility] Administration Lidocaine HCl 20 ml 04/14/17 17:30 04/16/17 12:58 Xylocaine 2% Viscous Oral - MM Not Given TIDAC [facility] Losartan Potassium 100 mg 04/16/17 10:42 Cozaar - PO DAILY [facility] Metronidazole 500 mg 04/15/17 15:00 04/16/17 13:55 Flagyl - PO 500 mg TID [facility] Administration Nifedipine 30 mg 04/15/17 16:00 04/16/17 13:54 Procardia Xl - PO 30 mg DAILY [facility] Administration Oxycodone HCl 10 mg 04/16/17 13:11 04/16/17 13:52 Roxicodone - PO 10 mg Q8H PRN Administration PAIN LEVEL 6-10 Sevelamer Carbonate 1,600 mg 04/12/17 22:30 04/16/17 12:58 Renvela - PO 1,600 mg TIDCM [facility] Administration ASSESSMENT/PLAN: #R/o pubic osteomyelitis, ?myonecrosis -pt for pubic bone and m. biopsy-will be done by IR Wednesday. Needs to be off heparin gtt 6 hrs prior -afebrile, with leukocytosis 11.3 -will determine abx after result of biopsy #Diarrhea -C.diff toxin, ag + -Continue flagyl 500mg PO TID - Today is Day2 Thank you Rika Palmer MD PGY-1 ID Team Visit type - Emergency Visit Emergency Visit: No - New Patient This patient is new to me today: No - Critical Care Critical Care patient: No
--- NOTE | 2017-04-16 17:14 | PN ---
Teaching Attending Note Name of Resident: Rika Palmer ATTENDING PHYSICIAN STATEMENT I saw and evaluated the patient. I reviewed the resident's note and discussed the case with the resident. I agree with the resident's findings and plan as documented. SUBJECTIVE: C/O L LE, hip/ buttock pain No c/o fever/ chills No diarrhea OBJECTIVE: Cor S1S2 Lungs clear Abdomen soft, non tender L LE , R LE induration ASSESSMENT AND PLAN: R/O L pubic osteomyelitis ESRD C difficile For percutaneous bone bx Observe off antibiotics
[2017-04-16] MEDS: HEPARIN SOD,PORK IN 0.45% NACL 25,000 UNITS/500 ML INFUS.BAG IVPB SCH ×2 (19:00→19:30)
[2017-04-17] MEDS: HEPARIN NA (PORCINE) 5,000 UNITS/ML 1ML VIAL IVPUSH PRN (02:19)
[2017-04-17] MEDS: hydrALAZINE HCL 50 MG TABLET (FP) PO SCH ×3 (05:42→22:20)
[2017-04-17] MEDS: metroNIDAZOLE 250 MG TABLET PO SCH ×3 (05:42→22:21)
[2017-04-17] MEDS: LABETALOL HCL 200 MG TABLET (FP) PO SCH ×3 (05:42→22:19)
[2017-04-17] MEDS: cloNIDine HCL 0.1 MG TABLET PO SCH ×3 (05:42→22:19)
[2017-04-17] MEDS: GABAPENTIN 100 MG CAPSULE (FP) PO SCH ×3 (05:42→22:18)
[2017-04-17] MEDS: ACETAMINOPHEN 325 MG TABLET (FP) PO PRN ×2 (05:57→18:12)
[2017-04-17] MEDS: oxyCODONE HCL 5 MG TABLET PO PRN ×2 (05:57→18:11)
[2017-04-17] MEDS: INSULIN SLIDING SCALE (NOVOLOG) 1 VIAL SQ SCH ×4 (06:45→22:22)
[2017-04-17] MEDS ORDERED: INSULIN (NOVOLOG) ASPART 100 UNITS/ML 10ML VIAL ONE ×2 (06:45→21:07)
[2017-04-17] MEDS: INSULIN DETEMIR 100 UNITS/ML MDV SQ SCH ×2 (06:45→22:21)
[2017-04-17] MEDS: LIDOCAINE VISCOUS 2% ORAL/TOP 20 ML UNIT-DOSE CUP MM SCH ×3 (07:18→16:27)
[2017-04-17 09:00] LABS: HEMATOCRIT 28.8 % (32.4-45.2); MCH 27.1 pg (25.7-33.7); MEAN CELL VOLUME 87.4 fl (80-96); MEAN PLT VOLUME 9.5 fl (7.5-11.1); PLATELET COUNT 362 K/MM3 (134-434); RDW 17.3 % (11.6-15.6); WHITE BLOOD COUNT 12.1 K/mm3 (4.0-10.0)
[2017-04-17] MEDS ORDERED: SODIUM CHLORIDE NASAL SPRAY 44 ML BOTTLE NS PRN (09:10)
--- NOTE | 2017-04-17 09:18 | PN ---
Physical Exam: SUBJECTIVE: Patient seen and examined. Complaining of painful lesion in left nare and yellow-green nasal discharge. OBJECTIVE: Vital Signs Period Temp Pulse Resp BP Sys/Ames Pulse Ox Last 24 Hr 97.6 F-98.4 F 89-106 16-20 122-194/70-133 100 Physical Exam: Neuro: A&Ox3 HEENT: tender lesion in left nare; tenderness over left maxillary sinus Pulm: Lungs CTA CV: S1, S2, rrr Ext: 1+edema bilaterally Laboratory Results - last 24 hr 04/16/17 04/16/17 04/16/17 11:19 12:13 14:30 WBC RBC Hgb Hct MCV MCH MCHC RDW Plt Count MPV PTT (Actin FS) 44.4 H Sodium 135 L Potassium 4.3 Chloride 99 Carbon Dioxide 27 Anion Gap 9 BUN 45 H Creatinine 5.3 H Creat Clearance w eGFR 9.71 POC Glucometer 191 Random Glucose 103 Calcium 8.1 L Phosphorus 4.6 Total Bilirubin 0.7 AST 97 H ALT 60 Alkaline Phosphatase 1366 H D Total Protein 7.4 Albumin 2.6 L 04/16/17 04/16/17 04/16/17 16:38 18:11 21:03 WBC RBC Hgb Hct MCV MCH MCHC RDW Plt Count MPV PTT (Actin FS) Sodium Potassium Chloride Carbon Dioxide Anion Gap BUN Creatinine Creat Clearance w eGFR POC Glucometer 288 187 180 Random Glucose Calcium Phosphorus Total Bilirubin AST ALT Alkaline Phosphatase Total Protein Albumin 04/17/17 04/17/17 04/17/17 01:15 05:44 07:30 WBC 12.1 H RBC 3.30 L Hgb 9.0 L Hct 28.8 L MCV 87.4 MCH 27.1 MCHC 31.0 L RDW 17.3 H Plt Count 362 MPV 9.5 PTT (Actin FS) 46.2 H Sodium Potassium Chloride Carbon Dioxide Anion Gap BUN Creatinine Creat Clearance w eGFR POC Glucometer 323 Random Glucose Calcium Phosphorus Total Bilirubin AST ALT Alkaline Phosphatase Total Protein Albumin Active Medications Generic Name Dose Route Start Last Admin Trade Name Freq PRN Reason Stop Dose Admin Acetaminophen 325 mg 04/12/17 22:29 04/16/17 13:52 Tylenol - PO 325 mg Q6H PRN Administration PAIN Acetaminophen 650 mg 04/13/17 09:42 04/17/17 05:57 Tylenol - PO 650 mg Q6H PRN Administration PAIN Albuterol/Ipratropium 1 amp 04/15/17 19:30 04/16/17 21:10 Duoneb - NEB 1 amp Q6H PRN Administration SHORTNESS OF BREATH Cinacalcet 60 mg 04/16/17 13:15 04/16/17 14:20 Sensipar - PO 60 mg DAILY [facility] Administration Clonidine 0.3 mg 04/12/17 22:30 04/17/17 05:42 Catapres - PO 0.3 mg TID [facility] Administration Gabapentin 200 mg 04/12/17 22:30 04/17/17 05:42 Neurontin - PO 200 mg TID [facility] Administration Heparin Sodium (Porcine) 1,000 unit 04/14/17 19:13 Heparin - IVPUSH PRN PRN Heparin Heparin Sodium (Porcine) 5,000 unit 04/14/17 19:13 04/17/17 02:19 Heparin - IVPUSH 5,000 unit PRN PRN Administration Heparin Hydralazine HCl 50 mg 04/12/17 22:30 04/17/17 05:42 Apresoline - PO 50 mg TID [facility] Administration HEPARIN SOD,PORK IN 0.45% NACL 25,000 units in 500 mls @ 23.4 mls/hr 04/15/17 20:30 04/17/17 02:19 Heparin-1/2ns 25,000 Units/500 IVPB 1,970 unit/hr TITR ROSA MARIA 39.4 mls/hr Protocol Titration 1,170 UNIT/HR Insulin Aspart 1 vial 04/13/17 07:00 04/17/17 06:45 Novolog Vial Sliding Scale - SQ 8 units ACHS [facility] Administration Protocol Insulin Detemir 15 units 04/12/17 22:30 04/17/17 06:45 Levemir Vial SQ 15 units BID@0700,2200 [facility] Administration Labetalol HCl 400 mg 04/12/17 22:30 04/17/17 05:42 Normodyne - PO 400 mg TID [facility] Administration Lidocaine HCl 20 ml 04/14/17 17:30 04/17/17 07:18 Xylocaine 2% Viscous Oral - MM Not Given TIDAC [facility] Losartan Potassium 100 mg 04/16/17 10:42 Cozaar - PO DAILY [facility] Metronidazole 500 mg 04/15/17 15:00 04/17/17 05:42 Flagyl - PO 500 mg TID [facility] Administration Nifedipine 30 mg 04/15/17 16:00 04/16/17 13:54 Procardia Xl - PO 30 mg DAILY [facility] Administration Oxycodone HCl 10 mg 04/16/17 13:11 04/17/17 05:57 Roxicodone - PO 10 mg Q8H PRN Administration PAIN LEVEL 6-10 Sevelamer Carbonate 1,600 mg 04/12/17 22:30 04/16/17 16:59 Renvela - PO 1,600 mg TIDCM [facility] Administration Sodium Chloride 2 spray 04/17/17 09:10 [place] Nasal [place] - NS BID PRN NASAL CONGESTION ASSESSMENT/PLAN 26 year-old female with PMH significant for HTN, IDDM, 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 Admitted for diarrhea, volume overload after missing HD session. Also admitted for right lower leg fluid collection, and left hip pain. ESRD on HD (M, W, F) --next session Wednesday Right gastrocnemius muscle fluid collection --plan is for IR drainage with biopsy; scheduled for 04/20 Left hip pain --possible pubic osteo on CT --plan is for biopsy; scheduled for 04/20 --per ID, hold off on antibiotics Sinusitis --pain over left maxillary sinus and green nasal discharge --will start augmentin PO BID x 7 days Hypertension --BP elevated --increase hydralazine to 75mg TID --continue losartan, labetolol, clonidine, nifedipine Coagulopathy h/o PE/DVT/left atrial myxoma --on heparin drip pending IR procedures --PTT goal 60-80 Anemia --h/h stable IDDM --Levemir BID --Novolog sliding scale coverage C. difficile --continue metronidazole PO (day #3); needs 10-14 day course FEN Fluids: PO intake adequate Electrolytes: replete as indicated Nutrition: renal diabetic DVT prophylaxis: continue heparin drip;hold heparin drip and make NPO on Wednesday at midnight for Wednesday procedure Dispo: continues to require inpatient care. Full Code. Visit type - Emergency Visit Emergency Visit: Yes ED Registration Date: 04/12/17 Care time: The patient presented to the Emergency Department on the above date and was hospitalized for further evaluation of their emergent condition. - New Patient This patient is new to me today: No - Critical Care Critical Care patient: No
[2017-04-17] MEDS: NIFEdipine E.R. 30 MG TABLET (FP) PO SCH (10:03)
[2017-04-17] MEDS: LOSARTAN POTASSIUM 50 MG TABLET (FP) PO SCH (10:03)
[2017-04-17] MEDS: SEVELAMER CARBONATE 800 MG TAB (FP) PO SCH ×3 (10:04→16:47)
[2017-04-17] MEDS: CINACALCET HCL 30 MG TAB (FP) PO SCH (10:04)
--- NOTE | 2017-04-17 12:19 | PN ---
Progress Note (short form) - Note Progress Note: Renal follow up for ESRD on HD Pt seen and examined at the bedside s/p isolated UF today tolerated 3kg UF continues to have thigh pain but is mildly improved no sob, chest pain, abd pain, N/V/D Vital Signs Temperature 98.4 F 04/17/17 07:25 Pulse Rate 88 04/17/17 10:30 Respiratory Rate 18 04/17/17 10:30 Blood Pressure 166/106 04/17/17 10:30 O2 Sat by Pulse Oximetry (%) 100 04/16/17 21:00 Intake & Output 04/14/17 04/15/17 04/16/17 04/17/17 23:59 23:59 23:59 23:59 Intake Total 1560 1107 2666.8 515.8 Balance 1560 1107 2666.8 515.8 Weight 67.132 kg 66.86 kg 70.307 kg NAD 1+ LE edema CBC, BMP 04/17/17 07:30 04/16/17 12:13 Current Medications Acetaminophen (Tylenol -) 325 mg PO Q6H PRN PRN Reason: PAIN Last Admin: 04/16/17 13:52 Dose: 325 mg Acetaminophen (Tylenol -) 650 mg PO Q6H PRN PRN Reason: PAIN Last Admin: 04/17/17 05:57 Dose: 650 mg Albuterol/Ipratropium (Duoneb -) 1 amp NEB Q6H PRN PRN Reason: SHORTNESS OF BREATH Last Admin: 04/16/17 21:10 Dose: 1 amp Cinacalcet (Sensipar -) 60 mg PO DAILY [facility] Last Admin: 04/17/17 10:04 Dose: 60 mg Clonidine (Catapres -) 0.3 mg PO TID [facility] Last Admin: 04/17/17 05:42 Dose: 0.3 mg Gabapentin (Neurontin -) 200 mg PO TID [facility] Last Admin: 04/17/17 05:42 Dose: 200 mg Heparin Sodium (Porcine) (Heparin -) 1,000 unit IVPUSH PRN PRN PRN Reason: Heparin Last Admin: 04/17/17 10:03 Dose: 1,000 unit Heparin Sodium (Porcine) (Heparin -) 5,000 unit IVPUSH PRN PRN PRN Reason: Heparin Last Admin: 04/17/17 02:19 Dose: 5,000 unit Hydralazine HCl (Apresoline -) 50 mg PO TID [facility] Last Admin: 04/17/17 05:42 Dose: 50 mg HEPARIN SOD,PORK IN 0.45% NACL (Heparin-1/2ns 25,000 Units/500) 25,000 units in 500 mls @ 23.4 mls/hr IVPB TITR [facility]; 1,170 UNIT/HR PRN Reason: Protocol Last Titration: 04/17/17 10:16 Dose: 2,020 unit/hr, 40.4 mls/hr Ibuprofen (Motrin -) 400 mg PO Q6H PRN PRN Reason: FEVER Insulin Aspart (Novolog Vial Sliding Scale -) 1 vial SQ ACHS [facility] PRN Reason: Protocol Last Admin: 04/17/17 06:45 Dose: 8 units Insulin Detemir (Levemir Vial) 15 units SQ BID@0700,2200 [facility] Last Admin: 04/17/17 06:45 Dose: 15 units Labetalol HCl (Normodyne -) 400 mg PO TID [facility] Last Admin: 04/17/17 05:42 Dose: 400 mg Lidocaine HCl (Xylocaine 2% Viscous Oral -) 20 ml MM TIDAC [facility] Last Admin: 04/17/17 07:18 Dose: Not Given Losartan Potassium (Cozaar -) 100 mg PO DAILY [facility] Last Admin: 04/17/17 10:03 Dose: 100 mg Metronidazole (Flagyl -) 500 mg PO TID [facility] Last Admin: 04/17/17 05:42 Dose: 500 mg Nifedipine (Procardia Xl -) 30 mg PO DAILY [facility] Last Admin: 04/17/17 10:03 Dose: 30 mg Oxycodone HCl (Roxicodone -) 10 mg PO Q8H PRN PRN Reason: PAIN LEVEL 6-10 Last Admin: 04/17/17 05:57 Dose: 10 mg Sevelamer Carbonate (Renvela -) 1,600 mg PO TIDCM [facility] Last Admin: 04/17/17 10:04 Dose: 1,600 mg Sodium Chloride ([place]al [place] -) 2 spray NS BID PRN PRN Reason: NASAL CONGESTION 26 year old woman with PMhx of ESRD on HD (MWF), Hypertension, DM Typw 1, PE on Eliqus who presented to the ED wit complaints of GUTIERRES, diarrhea, and left LE pain. #suspected Pelvic inflamation/fluid collection in LLE IR biopsy planned for Wednesday PTH as outpatient very high, repeated as inpatient continue Senspiar will continue Hecterol with HD bone erosion could from high PTH and increased bone reabsorption abx on hold cultures negative #ESRD on HD s/p isolated UF today tolerated it well next dialysis is planned for wednesday check BMP in AM #Hypertension BP better controlled continue current meds Nathan Vo DO
[2017-04-17 15:09] LABS: GLUCOSE,RANDOM 351 mg/dL (74-106)
[2017-04-17] MEDS ORDERED: hydrALAZINE HCL 50 MG TABLET (FP) PO ONE (15:42)
[2017-04-17 17:57] LABS: ANION GAP 16 (8-16); CALCIUM 7.9 mg/dL (8.5-10.1); CHLORIDE 96 mmol/L (98-107); CO2 25 mmol/L (21-32); PHOSPHOROUS 3.6 mg/dL (2.5-4.9); SODIUM 137 mmol/L (136-145)
[2017-04-17 17:58] LABS: ALBUMIN 2.8 g/dl (3.4-5.0); ALK PHOS 1361 U/L (45-117); BILIRUBIN,TOTAL 0.7 mg/dL (0.2-1.0); BLOOD UREA NITROGEN 37 mg/dL (7-18); CREATININE 4.1 mg/dL (0.55-1.02); SGOT/AST 80 U/L (15-37); SGPT/ALT 51 U/L (12-78); TOT PROT 7.8 g/dl (6.4-8.2)
[2017-04-17] MEDS: ALBUTEROL SO4 2.5/IPRATROPIUM 0.5 INH SOL 3 ML VIAL.NEB. NEB PRN (20:30)
[2017-04-17] MEDS: IBUPROFEN 400 MG TABLET (FP) PO PRN (22:44)
[2017-04-17] MEDS: HEPARIN SOD,PORK IN 0.45% NACL 25,000 UNITS/500 ML INFUS.BAG IVPB SCH (23:07)
[2017-04-18] MEDS: ACETAMINOPHEN 325 MG TABLET (FP) PO PRN ×3 (04:15→19:53)
[2017-04-18] MEDS: oxyCODONE HCL 5 MG TABLET PO PRN ×2 (04:16→19:27)
[2017-04-18] MEDS: metroNIDAZOLE 250 MG TABLET PO SCH ×3 (06:45→22:56)
[2017-04-18] MEDS: LABETALOL HCL 200 MG TABLET (FP) PO SCH ×3 (06:46→22:56)
[2017-04-18] MEDS: hydrALAZINE HCL 50 MG TABLET (FP) PO SCH ×3 (06:46→22:57)
[2017-04-18] MEDS: cloNIDine HCL 0.1 MG TABLET PO SCH ×3 (06:46→22:56)
[2017-04-18] MEDS: GABAPENTIN 100 MG CAPSULE (FP) PO SCH ×3 (06:46→23:03)
[2017-04-18] MEDS: INSULIN SLIDING SCALE (NOVOLOG) 1 VIAL SQ SCH ×4 (06:47→22:58)
[2017-04-18] MEDS: INSULIN DETEMIR 100 UNITS/ML MDV SQ SCH ×2 (06:47→22:57)
[2017-04-18] MEDS: LIDOCAINE VISCOUS 2% ORAL/TOP 20 ML UNIT-DOSE CUP MM SCH ×3 (07:28→17:12)
[2017-04-18 07:48] LABS: HEMATOCRIT 27.8 % (32.4-45.2); HEMOGLOBIN 8.6 GM/dL (10.7-15.3); MCHC 31.1 g/dl (32.0-36.0); MEAN CELL VOLUME 86.9 fl (80-96); MEAN PLT VOLUME 9.2 fl (7.5-11.1); PLATELET COUNT 360 K/MM3 (134-434); RDW 17.1 % (11.6-15.6); WHITE BLOOD COUNT 11.3 K/mm3 (4.0-10.0)
[2017-04-18] MEDS: SEVELAMER CARBONATE 800 MG TAB (FP) PO SCH ×3 (08:09→17:12)
[2017-04-18 08:20] LABS: ANION GAP 13 (8-16); BLOOD UREA NITROGEN 51 mg/dL (7-18); CALCIUM 7.4 mg/dL (8.5-10.1); CHLORIDE 96 mmol/L (98-107); CO2 24 mmol/L (21-32); CREATININE 4.9 mg/dL (0.55-1.02); GLUCOSE,RANDOM 299 mg/dL (74-106); SODIUM 133 mmol/L (136-145)
--- NOTE | 2017-04-18 08:37 | PN ---
Physical Exam: SUBJECTIVE: Patient seen and examined OBJECTIVE: Vital Signs Period Temp Pulse Resp BP Sys/Ames Pulse Ox Last 24 Hr 97.7 F-98.4 F 84-95 18-20 138-182/88-107 96-97 Physical Exam: Neuro: A&Ox3 HEENT: tender lesion in left nare; tenderness over left maxillary sinus Pulm: Bilateral crackles at bases and about 1/[address] up CV: S1, S2, rrr Ext: 1+edema bilaterally Laboratory Results - last 24 hr 04/16/17 04/17/17 04/17/17 05:40 07:30 08:40 WBC 12.1 H RBC 3.30 L Hgb 9.0 L Hct 28.8 L MCV 87.4 MCH 27.1 MCHC 31.0 L RDW 17.3 H Plt Count 362 MPV 9.5 PTT (Actin FS) 57.7 H Sodium Potassium Chloride Carbon Dioxide Anion Gap BUN Creatinine Creat Clearance w eGFR POC Glucometer Random Glucose Calcium Phosphorus Total Bilirubin AST ALT Alkaline Phosphatase Total Protein Albumin PTH Intact 2138 H 04/17/17 04/17/17 04/17/17 13:15 16:50 20:35 WBC RBC Hgb Hct MCV MCH MCHC RDW Plt Count MPV PTT (Actin FS) 51.4 H Sodium 137 Potassium 4.0 Chloride 96 L Carbon Dioxide 25 Anion Gap 16 BUN 37 H Creatinine 4.1 H Creat Clearance w eGFR 13.05 POC Glucometer 193 Random Glucose 351 H* Calcium 7.9 L Phosphorus 3.6 D Total Bilirubin 0.7 AST 80 H ALT 51 Alkaline Phosphatase 1361 H Total Protein 7.8 Albumin 2.8 L PTH Intact 04/17/17 04/18/17 04/18/17 22:18 06:00 06:00 WBC 11.3 H RBC 3.20 L Hgb 8.6 L Hct 27.8 L MCV 86.9 MCH 27.0 MCHC 31.1 L RDW 17.1 H Plt Count 360 MPV 9.2 PTT (Actin FS) 62.3 H Sodium Potassium Chloride Carbon Dioxide Anion Gap BUN Creatinine Creat Clearance w eGFR POC Glucometer 188 Random Glucose Calcium Phosphorus Total Bilirubin AST ALT Alkaline Phosphatase Total Protein Albumin PTH Intact 04/18/17 04/18/17 06:00 06:44 WBC RBC Hgb Hct MCV MCH MCHC RDW Plt Count MPV PTT (Actin FS) Sodium 133 L Potassium 4.0 Chloride 96 L Carbon Dioxide 24 Anion Gap 13 BUN 51 H Creatinine 4.9 H Creat Clearance w eGFR POC Glucometer 311 Random Glucose 299 H Calcium 7.4 L Phosphorus Total Bilirubin AST ALT Alkaline Phosphatase Total Protein Albumin PTH Intact Current Medications Generic Name Dose Route Start Last Admin Trade Name Freq PRN Reason Stop Dose Admin Acetaminophen 325 mg 04/12/17 22:29 04/16/17 13:52 Tylenol - PO 325 mg Q6H PRN Administration PAIN Acetaminophen 650 mg 04/13/17 09:42 04/18/17 04:15 Tylenol - PO 650 mg Q6H PRN Administration PAIN Albuterol/Ipratropium 1 amp 04/18/17 09:00 Duoneb - NEB TID ROSA MARIA Amoxicillin/Clavulanate Potassium 1 tab 04/18/17 08:56 Augmentin - 500mg Tablet PO 04/18/17 08:57 BID@0800,1730 STA Cinacalcet 60 mg 04/16/17 13:15 04/17/17 10:04 Sensipar - PO 60 mg DAILY [facility] Administration Clonidine 0.3 mg 04/12/17 22:30 04/18/17 06:46 Catapres - PO 0.3 mg TID ROSA MARIA Administration Gabapentin 200 mg 04/12/17 22:30 04/18/17 06:46 Neurontin - PO 200 mg TID ROSA MARIA Administration Heparin Sodium (Porcine) 1,000 unit 04/14/17 19:13 04/17/17 10:03 Heparin - IVPUSH 1,000 unit PRN PRN Administration Heparin Heparin Sodium (Porcine) 5,000 unit 04/14/17 19:13 04/17/17 02:19 Heparin - IVPUSH 5,000 unit PRN PRN Administration Heparin Hydralazine HCl 75 mg 04/17/17 22:00 04/18/17 06:46 Apresoline - PO 75 mg TID [facility] Administration HEPARIN SOD,PORK IN 0.45% NACL 25,000 units in 500 mls @ 23.4 mls/hr 04/15/17 20:30 04/17/17 23:07 Heparin-1/2ns 25,000 Units/500 IVPB Not Given TITR ROSA MARIA Protocol 1,170 UNIT/HR Ibuprofen 400 mg 04/17/17 11:56 04/17/17 22:44 Motrin - PO 400 mg Q6H PRN Administration FEVER Insulin Aspart 1 vial 04/13/17 07:00 04/18/17 06:47 Novolog Vial Sliding Scale - SQ 8 units ACHS ROSA MARIA Administration Protocol Insulin Detemir 15 units 04/12/17 22:30 04/18/17 06:47 Levemir Vial SQ 15 units BID@0700,2200 ROSA MARIA Administration Labetalol HCl 400 mg 04/12/17 22:30 04/18/17 06:46 Normodyne - PO 400 mg TID ROSA MARIA Administration Lidocaine HCl 20 ml 04/14/17 17:30 04/18/17 07:28 Xylocaine 2% Viscous Oral - MM Not Given TIDAC ROSA MARIA Losartan Potassium 100 mg 04/16/17 10:42 04/17/17 10:03 Cozaar - PO 100 mg DAILY ROS[facility]IA Administration Metronidazole 500 mg 04/15/17 15:00 04/18/17 06:45 Flagyl - PO 500 mg TID ROSA MARIA Administration Nifedipine 30 mg 04/15/17 16:00 04/17/17 10:03 Procardia Xl - PO 30 mg DAILY ROS[facility]IA Administration Oxycodone HCl 10 mg 04/16/17 13:11 04/18/17 04:16 Roxicodone - PO 10 mg Q8H PRN Administration PAIN LEVEL 6-10 Sevelamer Carbonate 1,600 mg 04/12/17 22:30 04/18/17 08:09 Renvela - PO 1,600 mg TIDCM ROSA MARIA Administration Sodium Chloride 2 spray 04/17/17 09:10 04/17/17 16:47 [place] Nasal [place] - NS 2 sprays BID PRN Administration NASAL CONGESTION ASSESSMENT/PLAN 26 year-old female with PMH significant for HTN, IDDM, 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 Admitted for diarrhea, volume overload after missing HD session. Also admitted for right lower leg fluid collection, and left hip pain. ESRD on HD (M, W, F) --clinically volume overloaded; more SOB, desatting to 81% on room air, CXR shows new congestion since 04/12 --Dr. Vo will arrange for fluid removal today Hypoxia --patient is on home O2 but is not sure why; says she has a h/o asthma, has nebulizer at home uses several times per week --review of EMR suggests h/o asthma --Echo 12/31/16: moderate cLVH; EF normal; RV normal; trace MR; moderate TR; moderate pHTN; mild PI Right gastrocnemius muscle fluid collection --plan is for IR drainage with biopsy; scheduled for 04/20 Left hip pain --possible pubic osteo on CT --plan is for biopsy; scheduled for 04/20 --per ID, hold off on antibiotics Sinusitis --pain over left maxillary sinus and green nasal discharge --continue augmentin PO BID renally dosed --CT sinus tomorrow before HD Hypertension --BP better controlled on higher dose hydralazine --continue losartan, labetolol, clonidine, nifedipine Coagulopathy h/o PE/DVT/left atrial myxoma --on heparin drip pending IR procedures --PTT goal 60-80 Anemia --h/h stable IDDM --Levemir BID --Novolog sliding scale coverage C. difficile --continue metronidazole PO (day #5); needs 10-14 day course FEN Fluids: PO intake adequate Electrolytes: replete as indicated Nutrition: renal diabetic DVT prophylaxis: continue heparin drip; hold heparin drip and make NPO on Wednesday at midnight for Wednesday procedure Dispo: continues to require inpatient care. Full Code. Visit type - Emergency Visit Emergency Visit: Yes ED Registration Date: 04/12/17 Care time: The patient presented to the Emergency Department on the above date and was hospitalized for further evaluation of their emergent condition. - New Patient This patient is new to me today: No - Critical Care Critical Care patient: No
[2017-04-18] MEDS ORDERED: AMOX TR/POT CLAV 875MG/125MG TABLETS (FP) PO STA (08:46)
[2017-04-18] MEDS ORDERED: ALBUTEROL SO4 2.5/IPRATROPIUM 0.5 INH SOL 3 ML VIAL.NEB. NEB SCH (09:00)
[2017-04-18] MEDS: AMOX TR/POT CLAV 500MG/125MG TABLETS (FP) PO SCH ×2 (09:57→17:52)
[2017-04-18] MEDS: NIFEdipine E.R. 30 MG TABLET (FP) PO SCH (09:57)
[2017-04-18] MEDS: CINACALCET HCL 30 MG TAB (FP) PO SCH (09:57)
[2017-04-18] MEDS: LOSARTAN POTASSIUM 50 MG TABLET (FP) PO SCH (09:57)
--- NOTE | 2017-04-18 14:18 | PN ---
Progress Note (short form) - Note Progress Note: awaiting bone biopsy by interventional radiologist will follow
[2017-04-18] MEDS: ALBUTEROL SO4 2.5/IPRATROPIUM 0.5 INH SOL 3 ML VIAL.NEB. NEB SCH ×2 (14:24→20:20)
[2017-04-18] MEDS: HEPARIN SOD,PORK IN 0.45% NACL 25,000 UNITS/500 ML INFUS.BAG IVPB SCH (21:58)
[2017-04-19] MEDS: IBUPROFEN 400 MG TABLET (FP) PO PRN (01:37)
[2017-04-19] MEDS: oxyCODONE HCL 5 MG TABLET PO PRN ×2 (03:36→17:58)
[2017-04-19] MEDS: ACETAMINOPHEN 325 MG TABLET (FP) PO PRN ×3 (03:37→16:10)
[2017-04-19] MEDS: LABETALOL HCL 200 MG TABLET (FP) PO SCH ×3 (06:52→23:00)
[2017-04-19] MEDS: cloNIDine HCL 0.1 MG TABLET PO SCH ×3 (06:52→23:00)
[2017-04-19] MEDS: hydrALAZINE HCL 50 MG TABLET (FP) PO SCH ×3 (06:52→23:28)
[2017-04-19] MEDS: metroNIDAZOLE 250 MG TABLET PO SCH ×2 (06:52→16:10)
[2017-04-19] MEDS: GABAPENTIN 100 MG CAPSULE (FP) PO SCH ×3 (06:53→23:00)
[2017-04-19] MEDS: INSULIN DETEMIR 100 UNITS/ML MDV SQ SCH ×3 (07:02→23:45)
[2017-04-19] MEDS: INSULIN SLIDING SCALE (NOVOLOG) 1 VIAL SQ SCH ×5 (07:02→23:45)
[2017-04-19] MEDS: LIDOCAINE VISCOUS 2% ORAL/TOP 20 ML UNIT-DOSE CUP MM SCH ×3 (07:04→16:49)
[2017-04-19] MEDS: ALBUTEROL SO4 2.5/IPRATROPIUM 0.5 INH SOL 3 ML VIAL.NEB. NEB SCH ×3 (07:45→20:18)
[2017-04-19 08:06] LABS: BASO % 1.2 % (0-2.0); EOS % 2.3 % (0-4.5); HEMOGLOBIN 8.6 GM/dL (10.7-15.3); LYMPH % 6.7 % (8-40); MCH 26.9 pg (25.7-33.7); MCHC 30.7 g/dl (32.0-36.0); MEAN CELL VOLUME 87.4 fl (80-96); MEAN PLT VOLUME 8.8 fl (7.5-11.1); MONO % 11.5 % (3.8-10.2); NEUT % 78.3 % (42.8-82.8); PLATELET COUNT 374 K/MM3 (134-434); RDW 17.1 % (11.6-15.6); WHITE BLOOD COUNT 11.9 K/mm3 (4.0-10.0)
--- NOTE | 2017-04-19 08:19 | HOSP ---
Subjective - Review of Symptoms Events since last encounter: Patient to have CT sinus with contrast study this morning. To be followed by hemodialysis. Confirmed schedule with power tool repair technician, HD nurse, and floor nurse. Physical Examination Vital Signs: Vital Signs Temperature 98.3 F 04/19/17 06:00 Pulse Rate 89 04/19/17 06:00 Respiratory Rate 18 04/19/17 06:00 Blood Pressure 142/78 04/19/17 06:00 O2 Sat by Pulse Oximetry (%) 100 04/18/17 21:00 Labs: CBC, BMP 04/19/17 06:30
[2017-04-19] MEDS ORDERED: PT OWN MED DRAWER 7, Y5N ONE ×4 (08:36→17:53)
[2017-04-19 08:41] LABS: CHLORIDE 96 mmol/L (98-107); POTASSIUM 4.7 mmol/L (3.5-5.1); SODIUM 134 mmol/L (136-145)
[2017-04-19] MEDS: AMOX TR/POT CLAV 500MG/125MG TABLETS (FP) PO SCH (08:45)
[2017-04-19] MEDS: SEVELAMER CARBONATE 800 MG TAB (FP) PO SCH ×3 (08:46→17:59)
[2017-04-19] MEDS: LOSARTAN POTASSIUM 50 MG TABLET (FP) PO SCH ×2 (08:46→09:03)
[2017-04-19] MEDS: NIFEdipine E.R. 30 MG TABLET (FP) PO SCH ×2 (08:47→09:03)
[2017-04-19 09:18] LABS: ALBUMIN 2.9 g/dl (3.4-5.0); ANION GAP 18 (8-16); BILIRUBIN,TOTAL 1.2 mg/dL (0.2-1.0); BLOOD UREA NITROGEN 64 mg/dL (7-18); CALCIUM 7.5 mg/dL (8.5-10.1); CO2 20 mmol/L (21-32); CREATININE 6.2 mg/dL (0.55-1.02); GLUCOSE,RANDOM 257 mg/dL (74-106); MAGNESIUM 2.1 mg/dL (1.8-2.4); SGOT/AST 61 U/L (15-37); SGPT/ALT 45 U/L (12-78); TOT PROT 8.1 g/dl (6.4-8.2)
[2017-04-19 09:31] LABS: ALK PHOS 1427 U/L (45-117)
[2017-04-19] MEDS ORDERED: PARICALCITOL 5 MCG/ML VIAL IVPUSH ONE (11:03)
--- NOTE | 2017-04-19 11:03 | PN ---
Progress Note (short form) - Note Progress Note: Renal follow up for ESRD on HD Pt seen and examined at the bedside s/p isolated UF yesterday as pt has SOB and worsening congestion on the Chest x- ray pt feels better today has some sinus discomfort to have cT of the sinus done today no sob, chest pain legs remain swollen Vital Signs Temperature 97.7 F 04/19/17 08:40 Pulse Rate 86 04/19/17 10:36 Respiratory Rate 18 04/19/17 09:00 Blood Pressure 118/62 04/19/17 10:36 O2 Sat by Pulse Oximetry (%) 99 04/19/17 09:00 Intake & Output 04/16/17 04/17/17 04/18/17 04/19/17 23:59 23:59 23:59 23:59 Intake Total 2666.8 515.8 1044 1046.8 Balance 2666.8 515.8 1044 1046.8 Weight 66.86 kg 70.307 kg 70.477 kg 70.307 kg NAD 2+ edema in LE CBC, BMP 04/19/17 06:30 04/19/17 06:30 Laboratory Tests 01/11/17 04/19/17 04/19/17 09:30 06:30 06:30 MCV 87.4 Calcium 8.9 7.5 L Phosphorus 6.8 H D Magnesium 2.1 Total Bilirubin 1.2 H D Albumin 2.9 L Current Medications Acetaminophen (Tylenol -) 325 mg PO Q6H PRN PRN Reason: PAIN Last Admin: 04/19/17 09:26 Dose: 325 mg Acetaminophen (Tylenol -) 650 mg PO Q6H PRN PRN Reason: PAIN Last Admin: 04/19/17 03:37 Dose: 650 mg Albuterol/Ipratropium (Duoneb -) 1 amp NEB RTID [facility] Last Admin: 04/19/17 07:45 Dose: 1 amp Amoxicillin/Clavulanate Potassium (Augmentin - 500mg Tablet) 1 tab PO BID@0800, 1730 [facility] Last Admin: 04/19/17 08:45 Dose: 1 tab Cinacalcet (Sensipar -) 60 mg PO DAILY [facility] Last Admin: 04/18/17 09:57 Dose: 60 mg Clonidine (Catapres -) 0.3 mg PO TID [facility] Last Admin: 04/19/17 06:52 Dose: 0.3 mg Gabapentin (Neurontin -) 200 mg PO TID [facility] Last Admin: 04/19/17 06:53 Dose: 200 mg Heparin Sodium (Porcine) (Heparin -) 1,000 unit IVPUSH PRN PRN PRN Reason: Heparin Last Admin: 04/17/17 10:03 Dose: 1,000 unit Heparin Sodium (Porcine) (Heparin -) 5,000 unit IVPUSH PRN PRN PRN Reason: Heparin Last Admin: 04/17/17 02:19 Dose: 5,000 unit Hydralazine HCl (Apresoline -) 75 mg PO TID [facility] Last Admin: 04/19/17 06:52 Dose: 75 mg HEPARIN SOD,PORK IN 0.45% NACL (Heparin-1/2ns 25,000 Units/500) 25,000 units in 500 mls @ 23.4 mls/hr IVPB TITR ROSA MARIA; 1,170 UNIT/HR PRN Reason: Protocol Last Admin: 04/18/17 21:58 Dose: 2,070 unit/hr, 41.4 mls/hr Ibuprofen (Motrin -) 400 mg PO Q6H PRN PRN Reason: FEVER Last Admin: 04/19/17 01:37 Dose: 400 mg Insulin Aspart (Novolog Vial Sliding Scale -) 1 vial SQ ACHS [facility] PRN Reason: Protocol Last Admin: 04/19/17 07:02 Dose: 6 units Insulin Detemir (Levemir Vial) 18 units SQ BID@0700,2200 [facility] Last Admin: 04/19/17 07:02 Dose: 18 units Labetalol HCl (Normodyne -) 400 mg PO TID [facility] Last Admin: 04/19/17 06:52 Dose: 400 mg Lidocaine HCl (Xylocaine 2% Viscous Oral -) 20 ml MM TIDAC [facility] Last Admin: 04/19/17 07:04 Dose: Not Given Losartan Potassium (Cozaar -) 100 mg PO DAILY [facility] Last Admin: 04/19/17 09:03 Dose: Not Given Metronidazole (Flagyl -) 500 mg PO TID [facility] Last Admin: 04/19/17 06:52 Dose: 500 mg Nifedipine (Procardia Xl -) 30 mg PO DAILY [facility] Last Admin: 04/19/17 09:03 Dose: Not Given Oxycodone HCl (Roxicodone -) 10 mg PO Q8H PRN PRN Reason: PAIN LEVEL 6-10 Last Admin: 04/19/17 03:36 Dose: 10 mg Sevelamer Carbonate (Renvela -) 1,600 mg PO TIDCM ROSA MARIA Last Admin: 04/19/17 08:46 Dose: 1,600 mg Sodium Chloride ([place] Nasal [place] -) 2 spray NS BID PRN PRN Reason: NASAL CONGESTION Last Admin: 04/17/17 16:47 Dose: 2 sprays 26 year old woman with PMhx of ESRD on HD (MWF), Hypertension, DM Typw 1, PE on Eliqus who presented to the ED wit complaints of GUTIERRES, diarrhea, and left LE pain. #suspected Pelvic inflammation/fluid collection in LLE IR biopsy planned for Wednesday PTH as outpatient very high, repeated as inpatient continue Senspiar will continue Hecterol with HD bone erosion could from high PTH and increased bone reabsorption abx on hold cultures negative #ESRD on HD with fluid overload s/p isolated UF yesterday will get 4 hours dialysis today with aggressive UF fluid and salt restriction discussed with the patient #Hypertension continue present meds #CKD related anemia continue MACIE with HD check iron studies Nathan Vo DO
[2017-04-19] MEDS: CINACALCET HCL 30 MG TAB (FP) PO SCH (11:20)
[2017-04-19] MEDS ORDERED: EPOETIN ALFA 20,000 UNIT/1 ML VIAL IVPUSH ONE (12:00)
--- NOTE | 2017-04-19 13:41 | PN ---
Physical Exam: SUBJECTIVE: Patient seen and examined OBJECTIVE: Vital Signs Period Temp Pulse Resp BP Sys/Ames Pulse Ox Last 24 Hr 97.7 F-98.3 F 62-98 18-20 118-167/62-109 99-100 Physical Exam: Neuro: A&Ox3 HEENT: tender lesion in left nare; tenderness over left maxillary sinus Pulm: Bilateral crackles at bases and about 1/[address] CV: S1, S2, rrr Ext: 1+edema bilaterally Laboratory Results - last 24 hr 04/17/17 04/18/17 04/18/17 12:15 17:13 17:20 WBC RBC Hgb Hct MCV MCH MCHC RDW Plt Count MPV Neutrophils % Lymphocytes % Monocytes % Eosinophils % Basophils % PTT (Actin FS) 80.5 H Sodium Potassium Chloride Carbon Dioxide Anion Gap BUN Creatinine Creat Clearance w eGFR POC Glucometer 415 305 Random Glucose Calcium Magnesium Total Bilirubin AST ALT Alkaline Phosphatase Total Protein Albumin 04/18/17 04/19/17 04/19/17 22:55 01:30 02:00 WBC RBC Hgb Hct MCV MCH MCHC RDW Plt Count MPV Neutrophils % Lymphocytes % Monocytes % Eosinophils % Basophils % PTT (Actin FS) 64.8 H Sodium Potassium Chloride Carbon Dioxide Anion Gap BUN Creatinine Creat Clearance w eGFR POC Glucometer 237 83 Random Glucose Calcium Magnesium Total Bilirubin AST ALT Alkaline Phosphatase Total Protein Albumin 04/19/17 04/19/17 04/19/17 03:24 04:23 06:30 WBC RBC Hgb Hct MCV MCH MCHC RDW Plt Count MPV Neutrophils % Lymphocytes % Monocytes % Eosinophils % Basophils % PTT (Actin FS) 67.7 H Sodium Potassium Chloride Carbon Dioxide Anion Gap BUN Creatinine Creat Clearance w eGFR POC Glucometer 56 158 Random Glucose Calcium Magnesium Total Bilirubin AST ALT Alkaline Phosphatase Total Protein Albumin 04/19/17 04/19/17 04/19/17 06:30 06:30 06:51 WBC 11.9 H RBC 3.20 L Hgb 8.6 L Hct 28.0 L MCV 87.4 MCH 26.9 MCHC 30.7 L RDW 17.1 H Plt Count 374 MPV 8.8 Neutrophils % 78.3 Lymphocytes % 6.7 L D Monocytes % 11.5 H Eosinophils % 2.3 Basophils % 1.2 PTT (Actin FS) Sodium 134 L Potassium 4.7 Chloride 96 L Carbon Dioxide 20 L Anion Gap 18 H BUN 64 H Creatinine 6.2 H Creat Clearance w eGFR 8.10 POC Glucometer 295 Random Glucose 257 H Calcium 7.5 L Magnesium 2.1 Total Bilirubin 1.2 H D AST 61 H D ALT 45 Alkaline Phosphatase 1427 H D Total Protein 8.1 Albumin 2.9 L 04/19/17 11:12 WBC RBC Hgb Hct MCV MCH MCHC RDW Plt Count MPV Neutrophils % Lymphocytes % Monocytes % Eosinophils % Basophils % PTT (Actin FS) Sodium Potassium Chloride Carbon Dioxide Anion Gap BUN Creatinine Creat Clearance w eGFR POC Glucometer 150 Random Glucose Calcium Magnesium Total Bilirubin AST ALT Alkaline Phosphatase Total Protein Albumin Active Medications Generic Name Dose Route Start Last Admin Trade Name Freq PRN Reason Stop Dose Admin Acetaminophen 325 mg 04/12/17 22:29 04/19/17 09:26 Tylenol - PO 325 mg Q6H PRN Administration PAIN Acetaminophen 650 mg 04/13/17 09:42 04/19/17 03:37 Tylenol - PO 650 mg Q6H PRN Administration PAIN Albuterol/Ipratropium 1 amp 04/18/17 09:17 04/19/17 07:45 Duoneb - NEB 1 amp RTID ROSA MARIA Administration Amoxicillin/Clavulanate Potassium 1 tab 04/18/17 08:56 04/19/17 08:45 Augmentin - 500mg Tablet PO 1 tab BID@0800,1730 ROSA MARIA Administration Cinacalcet 60 mg 04/16/17 13:15 04/19/17 11:20 Sensipar - PO Not Given DAILY ROSA MARIA Clonidine 0.3 mg 04/12/17 22:30 04/19/17 06:52 Catapres - PO 0.3 mg TID ROSA MARIA Administration Gabapentin 200 mg 04/12/17 22:30 04/19/17 06:53 Neurontin - PO 200 mg TID ROSA MARIA Administration Heparin Sodium (Porcine) 1,000 unit 04/14/17 19:13 04/17/17 10:03 Heparin - IVPUSH 1,000 unit PRN PRN Administration Heparin Heparin Sodium (Porcine) 5,000 unit 04/14/17 19:13 04/17/17 02:19 Heparin - IVPUSH 5,000 unit PRN PRN Administration Heparin Hydralazine HCl 75 mg 04/17/17 22:00 04/19/17 06:52 Apresoline - PO 75 mg TID ROSA MARIA Administration HEPARIN SOD,[place] 0.45% NACL 25,000 units in 500 mls @ 23.4 mls/hr 04/15/17 20:30 04/18/17 21:58 Heparin-1/2ns 25,000 Units/500 IVPB 2,070 unit/hr TITR ROSA MARIA 41.4 mls/hr Protocol Administration 1,170 UNIT/HR Ibuprofen 400 mg 04/17/17 11:56 04/19/17 01:37 Motrin - PO 400 mg Q6H PRN Administration FEVER Insulin Aspart 1 vial 04/13/17 07:00 04/19/17 11:10 Novolog Vial Sliding Scale - SQ Not Given ACHS [facility] Protocol Insulin Detemir 18 units 04/18/17 13:25 04/19/17 07:02 Levemir Vial SQ 18 units BID@0700,2200 ROSA MARIA Administration Labetalol HCl 400 mg 04/12/17 22:30 04/19/17 06:52 Normodyne - PO 400 mg TID ROSA MARIA Administration Lidocaine HCl 20 ml 04/14/17 17:30 04/19/17 07:04 Xylocaine 2% Viscous Oral - MM Not Given TIDAC ROSA MARIA Losartan Potassium 100 mg 04/16/17 10:42 04/19/17 09:03 Cozaar - PO Not Given DAILY [facility] Metronidazole 500 mg 04/15/17 15:00 04/19/17 06:52 Flagyl - PO 500 mg TID ROSA MARIA Administration Nifedipine 30 mg 04/15/17 16:00 04/19/17 09:03 Procardia Xl - PO Not Given DAILY [facility] Sevelamer Carbonate 1,600 mg 04/12/17 22:30 04/19/17 12:50 Renvela - PO 1,600 mg TIDCM ROS[facility]IA Administration Sodium Chloride 2 spray 04/17/17 09:10 04/17/17 16:47 [place] Nasal [place] - NS 2 sprays BID PRN Administration NASAL CONGESTION ASSESSMENT/PLAN 26 year-old female with PMH significant for HTN, IDDM, 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 Admitted for diarrhea, volume overload after missing HD session. Also admitted for right lower leg fluid collection, and left hip pain. ESRD on HD (M, W, F) --HD today Hypoxia --patient is on home O2 --review of EMR suggests h/o asthma --Echo 12/31/16: moderate cLVH; EF normal; RV normal; trace MR; moderate TR; moderate pHTN; mild PI Right gastrocnemius muscle fluid collection --plan is for IR drainage with biopsy; scheduled for 04/20 Left hip pain --possible pubic osteo on CT --plan is for biopsy; scheduled for 04/20 --per ID, hold off on antibiotics Sinusitis --04/19 CT sinus: (1) prominent soft tissue and fat stranding within the left nasal ala most compatible with cellulitis; (2) subcm hypodensity within the inferior left nasal ala favored to represent a focal phlegmon; no drainable abscess --continue augmentin PO BID renally dosed --CT sinus tomorrow before HD Hypertension --BP better controlled on higher dose hydralazine --continue losartan, labetolol, clonidine, nifedipine Coagulopathy h/o PE/DVT/left atrial myxoma --on heparin drip pending IR procedures --PTT goal 60-80 Anemia --h/h stable IDDM --Levemir BID --Novolog sliding scale coverage C. difficile --continue metronidazole PO (day #5); needs 10-14 day course FEN Fluids: PO intake adequate Electrolytes: replete as indicated Nutrition: renal diabetic DVT prophylaxis: DISCUSSED HEPARIN WITH DR. NIEVES; HOLD HEPARIN DRIP AT 4: 00AM ON WEDNESDAY FOR PROCEDURE LATER THAT DAY; NPO AFTER MIDNIGHT. Dispo: continues to require inpatient care. Full Code. Visit type - Emergency Visit Emergency Visit: Yes ED Registration Date: 04/12/17 Care time: The patient presented to the Emergency Department on the above date and was hospitalized for further evaluation of their emergent condition. - New Patient This patient is new to me today: No - Critical Care Critical Care patient: No
--- NOTE | 2017-04-19 16:36 | PN ---
Progress Note, Physician History of Present Illness: Developed worsening L nasal swelling No C/O nose pain or breathing difficulty No fever/ chills - Current Medication List Current Medications: Active Medications Acetaminophen (Tylenol -) 325 mg PO Q6H PRN PRN Reason: PAIN Last Admin: 04/19/17 16:10 Dose: 325 mg Acetaminophen (Tylenol -) 650 mg PO Q6H PRN PRN Reason: PAIN Last Admin: 04/19/17 03:37 Dose: 650 mg Albuterol/Ipratropium (Duoneb -) 1 amp NEB RTID [facility] Last Admin: 04/19/17 14:25 Dose: 1 amp Cinacalcet (Sensipar -) 60 mg PO DAILY [facility] Last Admin: 04/19/17 11:20 Dose: Not Given Clonidine (Catapres -) 0.3 mg PO TID [facility] Last Admin: 04/19/17 16:09 Dose: 0.3 mg Gabapentin (Neurontin -) 200 mg PO TID [facility] Last Admin: 04/19/17 16:11 Dose: 200 mg Hydralazine HCl (Apresoline -) 75 mg PO TID [facility] Last Admin: 04/19/17 06:52 Dose: 75 mg HEPARIN SOD,[place] IN 0.45% NACL (Heparin-1/2ns 25,000 Units/500) 25,000 units in 500 mls @ 23.4 mls/hr IVPB TITR [facility]A [facility]IA; 1,170 UNIT/HR PRN Reason: Protocol Last Admin: 04/18/17 21:58 Dose: 2,070 unit/hr, 41.4 mls/hr Ibuprofen (Motrin -) 400 mg PO Q6H PRN PRN Reason: FEVER Last Admin: 04/19/17 01:37 Dose: 400 mg Insulin Aspart (Novolog Vial Sliding Scale -) 1 vial SQ ACHS [facility] PRN Reason: Protocol Last Admin: 04/19/17 11:10 Dose: Not Given Insulin Detemir (Levemir Vial) 18 units SQ BID@0700,2200 [facility] Last Admin: 04/19/17 07:02 Dose: 18 units Labetalol HCl (Normodyne -) 400 mg PO TID [facility] Last Admin: 04/19/17 16:13 Dose: 400 mg Lidocaine HCl (Xylocaine 2% Viscous Oral -) 20 ml MM TIDAC [facility] Last Admin: 04/19/17 12:00 Dose: Not Given Losartan Potassium (Cozaar -) 100 mg PO DAILY [facility] Last Admin: 04/19/17 09:03 Dose: Not Given Nifedipine (Procardia Xl -) 30 mg PO DAILY [facility] Last Admin: 04/19/17 09:03 Dose: Not Given Sevelamer Carbonate (Renvela -) 1,600 mg PO TIDCM [facility] Last Admin: 04/19/17 12:50 Dose: 1,600 mg Sodium Chloride ([place] Nasal [place] -) 2 spray NS BID PRN PRN Reason: NASAL CONGESTION Last Admin: 04/17/17 16:47 Dose: 2 sprays - Objective Vital Signs: Vital Signs Temperature 97.9 F 04/19/17 12:35 Pulse Rate 93 H 04/19/17 15:40 Respiratory Rate 18 04/19/17 15:40 Blood Pressure 170/96 04/19/17 15:40 O2 Sat by Pulse Oximetry (%) 99 04/19/17 09:00 Constitutional: Yes: No Distress Eyes: Yes: Conjunctiva Clear Cardiovascular: Yes: Regular Rate and Rhythm, S1, S2 Respiratory: Yes: CTA Bilaterally. No: Rhonchi, Stridor, Wheezes Gastrointestinal: Yes: Normal Bowel Sounds, Soft. 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
[2017-04-19] MEDS ORDERED: INSULIN (NOVOLOG) ASPART 100 UNITS/ML 10ML VIAL ONE (16:37)
[2017-04-19] MEDS ORDERED: VANCOMYCIN 1,000 MG in DEXTROSE 5%-WATER - 250 ML IVPB ONE (17:15)
[2017-04-19] MEDS: AMOX TR/POT CLAV 250MG/125MG TABLETS PO SCH (18:18)
[2017-04-19] MEDS: HEPARIN SOD,PORK IN 0.45% NACL 25,000 UNITS/500 ML INFUS.BAG IVPB SCH (23:10)
--- NOTE | 2017-04-19 23:47 | HOSP ---
Subjective - Review of Symptoms Events since last encounter: called to see patient for lesion on foot. Subjective: pt reports that she noticed an area of her foot with discoloration and thickening of skin. Denies pain. Physical Examination Vital Signs: Vital Signs Temperature 98.3 F 04/19/17 18:45 Pulse Rate 89 04/19/17 18:45 Respiratory Rate 18 04/19/17 17:00 Blood Pressure 159/92 04/19/17 18:45 O2 Sat by Pulse Oximetry (%) 99 04/19/17 09:00 Integumentary: Yes: Other (right foot with large area on plantar surface of mid foot 7cm x 6.7cm with pale discoloration. Skin appears thickened, skin surrounding red. Pt denies pain on palpation. ? fluid under area of discoloration.) Labs: CBC, BMP 04/19/17 06:30 04/19/17 06:30 Hospitalist Encounter Assessment: lesion on foot - blister vs callous?? - podiatry consult nurse also reports pt in need of second IV line. #22g placed right dorsal wrist, 1st attempt. Good blood return. flushed freely. No induration. secured and initialed.
[2017-04-20] MEDS: oxyCODONE HCL 5 MG TABLET PO PRN ×3 (02:03→22:38)
[2017-04-20] MEDS: ACETAMINOPHEN 325 MG TABLET (FP) PO PRN ×3 (02:04→22:37)
[2017-04-20] MEDS: INSULIN DETEMIR 100 UNITS/ML MDV SQ SCH ×2 (06:42→23:39)
[2017-04-20] MEDS: INSULIN SLIDING SCALE (NOVOLOG) 1 VIAL SQ SCH ×4 (06:45→22:33)
[2017-04-20] MEDS: hydrALAZINE HCL 50 MG TABLET (FP) PO SCH ×3 (06:45→22:27)
[2017-04-20] MEDS: LABETALOL HCL 200 MG TABLET (FP) PO SCH ×3 (06:46→22:25)
[2017-04-20] MEDS: cloNIDine HCL 0.1 MG TABLET PO SCH ×3 (06:46→22:26)
[2017-04-20] MEDS: LIDOCAINE VISCOUS 2% ORAL/TOP 20 ML UNIT-DOSE CUP MM SCH ×3 (06:48→16:25)
[2017-04-20] MEDS: GABAPENTIN 100 MG CAPSULE (FP) PO SCH ×3 (06:48→22:30)
--- NOTE | 2017-04-20 07:29 | PN ---
Physical Exam: SUBJECTIVE: Patient seen and examined. Back from bone biopsy, tolerated well. Dr. Dubon present, OBJECTIVE: Vital Signs Period Temp Pulse Resp BP Sys/Ames Pulse Ox Last 24 Hr 97.7 F-99.0 F 53-107 18-20 118-176/62-109 99 Physical Exam: Neuro: A&Ox3 HEENT: lesion in left nare, tenderness over left maxillary sinus Pulm: Bibasilar crackles, improved CV: S1, S2, rrr Abdomen: gauze dressing LLQ over biopsy site, c/d/i Ext: 1+edema bilaterally Right foot: large plantar ulcer, fluctuant, prurulence expressed Laboratory Results - last 24 hr 04/17/17 04/19/17 04/19/17 12:15 06:30 06:30 WBC 11.9 H RBC 3.20 L Hgb 8.6 L Hct 28.0 L MCV 87.4 MCH 26.9 MCHC 30.7 L RDW 17.1 H Plt Count 374 MPV 8.8 Neutrophils % 78.3 Lymphocytes % 6.7 L D Monocytes % 11.5 H Eosinophils % 2.3 Basophils % 1.2 PTT (Actin FS) 67.7 H Sodium Potassium Chloride Carbon Dioxide Anion Gap BUN Creatinine Creat Clearance w eGFR POC Glucometer 415 Random Glucose Calcium Magnesium Total Bilirubin AST ALT Alkaline Phosphatase Total Protein Albumin 04/19/17 04/19/17 04/19/17 06:30 11:12 16:42 WBC RBC Hgb Hct MCV MCH MCHC RDW Plt Count MPV Neutrophils % Lymphocytes % Monocytes % Eosinophils % Basophils % PTT (Actin FS) Sodium 134 L Potassium 4.7 Chloride 96 L Carbon Dioxide 20 L Anion Gap 18 H BUN 64 H Creatinine 6.2 H Creat Clearance w eGFR 8.10 POC Glucometer 150 180 Random Glucose 257 H Calcium 7.5 L Magnesium 2.1 Total Bilirubin 1.2 H D AST 61 H D ALT 45 Alkaline Phosphatase 1427 H D Total Protein 8.1 Albumin 2.9 L 04/20/17 04/20/17 02:48 05:36 WBC RBC Hgb Hct MCV MCH MCHC RDW Plt Count MPV Neutrophils % Lymphocytes % Monocytes % Eosinophils % Basophils % PTT (Actin FS) Sodium Potassium Chloride Carbon Dioxide Anion Gap BUN Creatinine Creat Clearance w eGFR POC Glucometer 341 270 Random Glucose Calcium Magnesium Total Bilirubin AST ALT Alkaline Phosphatase Total Protein Albumin Active Medications Generic Name Dose Route Start Last Admin Trade Name Jdq PRN Reason Stop Dose Admin Acetaminophen 325 mg 04/12/17 22:29 04/19/17 16:10 Tylenol - PO 325 mg Q6H PRN Administration PAIN Acetaminophen 650 mg 04/13/17 09:42 04/20/17 02:04 Tylenol - PO 650 mg Q6H PRN Administration PAIN Albuterol/Ipratropium 1 amp 04/18/17 09:17 04/19/17 20:18 Duoneb - NEB 1 amp RTID ROSA MARIA Administration Amoxicillin/Clavulanate Potassium 1 tab 04/19/17 16:45 04/19/17 18:18 Augmentin - 250mg Tablet PO 1 tab DAILY [facility] Administration Cinacalcet 60 mg 04/16/17 13:15 04/19/17 11:20 Sensipar - PO Not Given DAILY [facility] Clonidine 0.3 mg 04/12/17 22:30 04/20/17 06:46 Catapres - PO 0.3 mg TID [facility] Administration Gabapentin 200 mg 04/12/17 22:30 04/20/17 06:48 Neurontin - PO 200 mg TID [facility] Administration Hydralazine HCl 75 mg 04/17/17 22:00 04/20/17 06:45 Apresoline - PO 75 mg TID [facility] Administration HEPARIN SOD,PORK IN 0.45% NACL 25,000 units in 500 mls @ 23.4 mls/hr 04/15/17 20:30 04/19/17 23:10 Heparin-1/2ns 25,000 Units/500 IVPB 2,070 unit/hr TITR ROSA MARIA 41.4 mls/hr Protocol Administration 1,170 UNIT/HR Ibuprofen 400 mg 04/17/17 11:56 04/19/17 01:37 Motrin - PO 400 mg Q6H PRN Administration FEVER Insulin Aspart 1 vial 04/13/17 07:00 04/20/17 06:45 Novolog Vial Sliding Scale - SQ Not Given ACHS [facility] Protocol Insulin Detemir 18 units 04/18/17 13:25 04/20/17 06:42 Levemir Vial SQ Not Given BID@0700,2200 [facility] Labetalol HCl 400 mg 04/12/17 22:30 04/20/17 06:46 Normodyne - PO 400 mg TID ROSA MARIA Administration Lidocaine HCl 20 ml 04/14/17 17:30 04/20/17 06:48 Xylocaine 2% Viscous Oral - MM Not Given TIDAC ROSA MARIA Losartan Potassium 100 mg 04/16/17 10:42 04/19/17 09:03 Cozaar - PO Not Given DAILY ROSA MARIA Nifedipine 30 mg 04/15/17 16:00 04/19/17 09:03 Procardia Xl - PO Not Given DAILY ROSA MARIA Oxycodone HCl 10 mg 04/19/17 17:48 04/20/17 02:03 Roxicodone - PO 10 mg Q8H PRN Administration PAIN LEVEL 7 - 10 Sevelamer Carbonate 1,600 mg 04/12/17 22:30 04/19/17 17:59 Renvela - PO 1,600 mg TIDCM ROSA MARIA Administration Sodium Chloride 2 spray 04/17/17 09:10 04/17/17 16:47 [place] Nasal [place] - NS 2 sprays BID PRN Administration NASAL CONGESTION ASSESSMENT/PLAN: 26 year-old female with PMH significant for HTN, IDDM, 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 Admitted for diarrhea, volume overload after missing HD session. Also admitted for right lower leg fluid collection, and left hip pain. ESRD on HD (M, W, F) --HD tomorrow Hypoxia --patient is on home O2 --review of EMR suggests h/o asthma --pulmonary consult requested --bedside PFT ordered Right gastrocnemius muscle fluid collection --IR aspiration today Left hip pain --bone biopsy today --per ID, hold off on antibiotics Right foot plantar ulcer/abscess --xray pending --pus expressed, culture collected and sent --to OR tomorrow with Dr. Dubon for I&D --will stop heparin drip 2 hours before procedure Sinusitis --04/19 CT sinus: (1) prominent soft tissue and fat stranding within the left nasal ala most compatible with cellulitis; (2) subcm hypodensity within the inferior left nasal ala favored to represent a focal phlegmon; no drainable abscess --continue augmentin PO BID renally dosed Hypertension --BP better controlled on higher dose hydralazine --continue losartan, labetolol, clonidine, nifedipine Coagulopathy h/o PE/DVT/left atrial myxoma --on heparin drip pending procedures --PTT goal 60-80 Anemia --h/h stable IDDM --Levemir BID --Novolog sliding scale coverage C. difficile --continue metronidazole PO (day #6); needs 10-14 day course FEN Fluids: PO intake adequate Electrolytes: replete as indicated Nutrition: renal diabetic DVT prophylaxis: heparin drip Dispo: continues to require inpatient care. Full Code. Visit type - Emergency Visit Emergency Visit: Yes ED Registration Date: 04/12/17 Care time: The patient presented to the Emergency Department on the above date and was hospitalized for further evaluation of their emergent condition. - New Patient This patient is new to me today: Yes Date on this admission: 04/20/17 - Critical Care Critical Care patient: No
[2017-04-20 07:48] LABS: HEMATOCRIT 28.8 % (32.4-45.2); HEMOGLOBIN 8.8 GM/dL (10.7-15.3); MCH 26.6 pg (25.7-33.7); MCHC 30.5 g/dl (32.0-36.0); MEAN CELL VOLUME 87.1 fl (80-96); MEAN PLT VOLUME 9.3 fl (7.5-11.1); PLATELET COUNT 364 K/MM3 (134-434); RBC 3.31 M/mm3 (3.60-5.2); RDW 16.8 % (11.6-15.6); WHITE BLOOD COUNT 13.4 K/mm3 (4.0-10.0)
[2017-04-20] MEDS: ALBUTEROL SO4 2.5/IPRATROPIUM 0.5 INH SOL 3 ML VIAL.NEB. NEB SCH ×3 (08:40→20:43)
[2017-04-20] MEDS: SEVELAMER CARBONATE 800 MG TAB (FP) PO SCH ×3 (08:48→17:00)
[2017-04-20] MEDS ORDERED: PT OWN MED DRAWER 7, Y5N ONE ×2 (09:46→13:38)
[2017-04-20] MEDS: NIFEdipine E.R. 30 MG TABLET (FP) PO SCH (09:57)
[2017-04-20] MEDS: LOSARTAN POTASSIUM 50 MG TABLET (FP) PO SCH (09:57)
[2017-04-20] MEDS: AMOX TR/POT CLAV 250MG/125MG TABLETS PO SCH (13:46)
[2017-04-20] MEDS: CINACALCET HCL 30 MG TAB (FP) PO SCH (13:47)
--- NOTE | 2017-04-20 14:53 | PN ---
Progress Note, Physician History of Present Illness: S/P bone bx Specimen routine c/s, AFB/ Fungal c/s ordered No fever/ chills L nasal swelling improved - Current Medication List Current Medications: Active Medications Acetaminophen (Tylenol -) 325 mg PO Q6H PRN PRN Reason: PAIN Last Admin: 04/19/17 16:10 Dose: 325 mg Acetaminophen (Tylenol -) 650 mg PO Q6H PRN PRN Reason: PAIN Last Admin: 04/20/17 13:48 Dose: 650 mg Albuterol/Ipratropium (Duoneb -) 1 amp NEB RTID [facility] Last Admin: 04/20/17 13:36 Dose: 1 amp Amoxicillin/Clavulanate Potassium (Augmentin - 250mg Tablet) 1 tab PO DAILY [facility] Last Admin: 04/20/17 13:46 Dose: 1 tab Cinacalcet (Sensipar -) 60 mg PO DAILY [facility] Last Admin: 04/20/17 13:47 Dose: 60 mg Clonidine (Catapres -) 0.3 mg PO TID [facility] Last Admin: 04/20/17 13:45 Dose: 0.3 mg Gabapentin (Neurontin -) 200 mg PO TID [facility] Last Admin: 04/20/17 13:53 Dose: Not Given Hydralazine HCl (Apresoline -) 75 mg PO TID [facility] Last Admin: 04/20/17 13:45 Dose: 75 mg Ibuprofen (Motrin -) 400 mg PO Q6H PRN PRN Reason: FEVER Last Admin: 04/19/17 01:37 Dose: 400 mg Insulin Aspart (Novolog Vial Sliding Scale -) 1 vial SQ [facility] PRN Reason: Protocol Last Admin: 04/20/17 12:56 Dose: Not Given Insulin Detemir (Levemir Vial) 18 units SQ BID@0700,2200 [facility] Last Admin: 04/20/17 06:42 Dose: Not Given Labetalol HCl (Normodyne -) 400 mg PO TID [facility] Last Admin: 04/20/17 13:47 Dose: 400 mg Lidocaine HCl (Xylocaine 2% Viscous Oral -) 20 ml MM TIDAC [facility] Last Admin: 04/20/17 12:56 Dose: Not Given Losartan Potassium (Cozaar -) 100 mg PO DAILY [facility] Last Admin: 04/20/17 09:57 Dose: 100 mg Nifedipine (Procardia Xl -) 30 mg PO DAILY [facility] Last Admin: 04/20/17 09:57 Dose: 30 mg Oxycodone HCl (Roxicodone -) 10 mg PO Q6H PRN PRN Reason: PAIN LEVEL 7 - 10 Last Admin: 04/20/17 13:47 Dose: 10 mg Sevelamer Carbonate (Renvela -) 1,600 mg PO TIDCM [facility] Last Admin: 04/20/17 13:47 Dose: 1,600 mg Sodium Chloride ([place] Nasal [place] -) 2 spray NS BID PRN PRN Reason: NASAL CONGESTION Last Admin: 04/17/17 16:47 Dose: 2 sprays - Objective Vital Signs: Vital Signs Temperature 98 F 04/20/17 13:43 Pulse Rate 91 H 04/20/17 13:43 Respiratory Rate 18 04/20/17 13:43 Blood Pressure 147/90 04/20/17 13:43 O2 Sat by Pulse Oximetry (%) 98 04/20/17 12:13 Constitutional: Yes: No Distress Eyes: Yes: Conjunctiva Clear HENT: Yes: Other (decreased L nasal swelling) Cardiovascular: Yes: Regular Rate and Rhythm, S1, S2 Respiratory: Yes: CTA Bilaterally. No: Stridor, Wheezes Gastrointestinal: Yes: Normal Bowel Sounds, Soft. 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
--- NOTE | 2017-04-20 15:48 | PN ---
Progress Note (short form) - Note Progress Note: Renal follow up for ESRD on HD Pt seen and examined at the bedside s/p biopsy of hip bone today no acute complaints no sob, chest pain Vital Signs Temperature 98 F 04/20/17 13:43 Pulse Rate 91 H 04/20/17 13:43 Respiratory Rate 18 04/20/17 13:43 Blood Pressure 147/90 04/20/17 13:43 O2 Sat by Pulse Oximetry (%) 98 04/20/17 12:13 Intake & Output 04/17/17 04/18/17 04/19/17 04/20/17 23:59 23:59 23:59 23:59 Intake Total 515.8 1044 2463.6 452.6 Balance 515.8 1044 2463.6 452.6 Weight 70.307 kg 70.477 kg 70.307 kg 69.4 kg NAD 2+ edema in LE CBC, BMP 04/20/17 05:35 04/19/17 06:30 Current Medications Acetaminophen (Tylenol -) 325 mg PO Q6H PRN PRN Reason: PAIN Last Admin: 04/19/17 16:10 Dose: 325 mg Acetaminophen (Tylenol -) 650 mg PO Q6H PRN PRN Reason: PAIN Last Admin: 04/20/17 13:48 Dose: 650 mg Albuterol/Ipratropium (Duoneb -) 1 amp NEB RTID [facility] Last Admin: 04/20/17 13:36 Dose: 1 amp Amoxicillin/Clavulanate Potassium (Augmentin - 250mg Tablet) 1 tab PO DAILY [facility] Last Admin: 04/20/17 13:46 Dose: 1 tab Cinacalcet (Sensipar -) 60 mg PO DAILY [facility] Last Admin: 04/20/17 13:47 Dose: 60 mg Clonidine (Catapres -) 0.3 mg PO TID [facility] Last Admin: 04/20/17 13:45 Dose: 0.3 mg Gabapentin (Neurontin -) 200 mg PO TID [facility] Last Admin: 04/20/17 13:53 Dose: Not Given Hydralazine HCl (Apresoline -) 75 mg PO TID [facility] Last Admin: 04/20/17 13:45 Dose: 75 mg Ibuprofen (Motrin -) 400 mg PO Q6H PRN PRN Reason: FEVER Last Admin: 04/19/17 01:37 Dose: 400 mg Insulin Aspart (Novolog Vial Sliding Scale -) 1 vial SQ ACHS [facility] PRN Reason: Protocol Last Admin: 04/20/17 12:56 Dose: Not Given Insulin Detemir (Levemir Vial) 18 units SQ BID@0700,2200 [facility] Last Admin: 04/20/17 06:42 Dose: Not Given Labetalol HCl (Normodyne -) 400 mg PO TID [facility] Last Admin: 04/20/17 13:47 Dose: 400 mg Lidocaine HCl (Xylocaine 2% Viscous Oral -) 20 ml MM TIDAC [facility] Last Admin: 04/20/17 12:56 Dose: Not Given Losartan Potassium (Cozaar -) 100 mg PO DAILY [facility] Last Admin: 04/20/17 09:57 Dose: 100 mg Nifedipine (Procardia Xl -) 30 mg PO DAILY [facility] Last Admin: 04/20/17 09:57 Dose: 30 mg Oxycodone HCl (Roxicodone -) 10 mg PO Q6H PRN PRN Reason: PAIN LEVEL 7 - 10 Last Admin: 04/20/17 13:47 Dose: 10 mg Sevelamer Carbonate (Renvela -) 1,600 mg PO TIDCM [facility] Last Admin: 04/20/17 13:47 Dose: 1,600 mg Sodium Chloride ([place] Nasal [place] -) 2 spray NS BID PRN PRN Reason: NASAL CONGESTION Last Admin: 04/17/17 16:47 Dose: 2 sprays 26 year old woman with PMhx of ESRD on HD (MWF), Hypertension, DM Typw 1, PE on Eliqus who presented to the ED wit complaints of GUTIERRES, diarrhea, and left LE pain. #suspected Pelvic inflammation/fluid collection in LLE s/p IR biopsy, will await path results continue sensipar ID following #ESRD on HD with fluid overload no acute indication for [employer] today next dialysis is planned for tomorrow #Hypertension continue present meds Nathan Vo DO
--- NOTE | 2017-04-20 15:52 | PN ---
Progress Note (short form) - Note Progress Note: Awaiting pending bone biopsy results. Will follow up after results are in.
--- NOTE | 2017-04-20 15:55 | CONSULT ---
Consult - text type - Consultation Consultation Note: Podiatry Consultation: 26 year old F, poorly controlled IDDM, ESRD on HD, well known to me, podiatry consultation requested for swelling, small opening to plantar aspect of right foot. Patient does not know timing of swelling, noted drainage over the past week. Denies F/V/N/C/SOB/CP. Afebrile. PMHx: IDDM, HTN, ESRD on HD, s/p PE on eliquis Meds: noted ALL: NKMA CATRACHITA: R foot: pedal pulses palpable, TG wnl, CFT brisk to all toes. There is a plantar lateral ulcer with hyperkeratotic borders, tunnelling and undermining present, (+) purulence, (+) fluctuance surrounding ulcer, no soft tissue crepitus, no streaking cellulitis, no tenderness to palpation. WBC: 13.4 R foot XR: pending Imp: 26 year old IDDM F with R foot abscess 1. Xray right foot to evaluate for foreign body plantar lateral midfoot 2. NPO at midnight. For I&D Right foot tomorrow morning. 3. Will follow. Thank you for the courtesy of this consultation. Delfino Dubon DPM
[2017-04-20] MEDS ORDERED: HEPARIN NA (PORCINE) 5,000 UNITS/ML 1ML VIAL IVPUSH PRN ×2 (16:07)
[2017-04-20] MEDS: HEPARIN SOD,PORK IN 0.45% NACL 25,000 UNITS/500 ML INFUS.BAG IVPB SCH (16:58)
[2017-04-20] MEDS ORDERED: INSULIN (NOVOLOG) ASPART 100 UNITS/ML 10ML VIAL ONE (22:16)
[2017-04-21] MEDS: HEPARIN SOD,PORK IN 0.45% NACL 25,000 UNITS/500 ML INFUS.BAG IVPB SCH (01:19)
[2017-04-21] MEDS: INSULIN DETEMIR 100 UNITS/ML MDV SQ SCH ×3 (05:48→21:28)
[2017-04-21] MEDS: INSULIN SLIDING SCALE (NOVOLOG) 1 VIAL SQ SCH ×5 (05:48→21:28)
[2017-04-21] MEDS: LABETALOL HCL 200 MG TABLET (FP) PO SCH ×3 (05:52→21:26)
[2017-04-21] MEDS: cloNIDine HCL 0.1 MG TABLET PO SCH ×3 (05:53→21:26)
[2017-04-21] MEDS: hydrALAZINE HCL 50 MG TABLET (FP) PO SCH ×3 (05:53→21:24)
[2017-04-21] MEDS: GABAPENTIN 100 MG CAPSULE (FP) PO SCH ×3 (05:53→23:41)
[2017-04-21] MEDS ORDERED: INSULIN (NOVOLOG) ASPART 100 UNITS/ML 10ML VIAL SQ ONE (06:54)
[2017-04-21] MEDS: LIDOCAINE VISCOUS 2% ORAL/TOP 20 ML UNIT-DOSE CUP MM SCH ×3 (07:21→16:25)
[2017-04-21] MEDS: SEVELAMER CARBONATE 800 MG TAB (FP) PO SCH ×3 (07:51→17:17)
[2017-04-21] MEDS: ALBUTEROL SO4 2.5/IPRATROPIUM 0.5 INH SOL 3 ML VIAL.NEB. NEB SCH ×3 (08:10→20:05)
[2017-04-21] MEDS ORDERED: SODIUM CHLORIDE 1,000 ML IV SCH (08:15)
[2017-04-21] MEDS ORDERED: ONDANSETRON 4 MG/2 ML VIAL IVPUSH PRN (08:15)
[2017-04-21] MEDS ORDERED: LIDOCAINE HCL/PF 2% SDV 5ML VIAL ONE (08:22)
[2017-04-21] MEDS ORDERED: MIDAZOLAM HCL 2 MG/2 ML SINGLE DOSE VIAL ONE (08:23)
[2017-04-21] MEDS ORDERED: PROPOFOL 20 ML ONE ×2 (08:23)
[2017-04-21] MEDS ORDERED: LIDOCAINE HCL 1%, 10 MG/ML (20ML VIAL) INF ONE ×2 (09:26)
--- NOTE | 2017-04-21 10:13 | OP ---
Operative Note - Note: Operative Date: 04/21/17 Pre-Operative Diagnosis: Right foot abscess, cellulitis Operation: Right foot incision and drainage Post-Operative Diagnosis: Same as Pre-op Surgeon: Devan Dubon Anesthesia: Local, MAC Estimated Blood Loss (mls): 25 Operative Report Dictated: Yes
--- NOTE | 2017-04-21 11:15 | PN ---
Physical Exam: SUBJECTIVE: Patient seen and examined. Getting HD, tolerating well. Had I&D of right foot ulcer earlier today. OBJECTIVE: Vital Signs Period Temp Pulse Resp BP Sys/Ames Pulse Ox Last 24 Hr 98 F-99.1 F 86-92 12-20 138-179/78-100 95-100 Neuro: A&Ox3 HEENT: lesion in left nare, tenderness over left maxillary sinus Pulm: CTA CV: S1, S2, rrr Abdomen: gauze dressing LLQ over biopsy site, c/d/i Ext: 1+edema bilaterally Right foot: surgical dressing c/d/i Laboratory Results - last 24 hr 04/20/17 04/20/17 04/20/17 16:22 21:20 22:32 PTT (Actin FS) 65.0 H D POC Glucometer 225 216 04/21/17 04/21/17 04/21/17 05:39 06:50 06:50 PTT (Actin FS) 35.4 H D POC Glucometer 541 473 Active Medications Generic Name Dose Route Start Last Admin Trade Name Freq PRN Reason Stop Dose Admin Acetaminophen 325 mg 04/12/17 22:29 04/20/17 22:37 Tylenol - PO 325 mg Q6H PRN Administration PAIN Acetaminophen 650 mg 04/13/17 09:42 04/20/17 13:48 Tylenol - PO 650 mg Q6H PRN Administration PAIN Albuterol/Ipratropium 1 amp 04/18/17 09:17 04/21/17 08:10 Duoneb - NEB Not Given RTID ROSA MARIA Amoxicillin/Clavulanate Potassium 1 tab 04/19/17 16:45 04/20/17 13:46 Augmentin - 250mg Tablet PO 1 tab DAILY [facility] Administration Cinacalcet 60 mg 04/16/17 13:15 04/20/17 13:47 Sensipar - PO 60 mg DAILY ROSA MARIA Administration Clonidine 0.3 mg 04/12/17 22:30 04/21/17 05:53 Catapres - PO 0.3 mg TID ROSA MARIA Administration Fentanyl 50 mcg 04/21/17 08:15 Sublimaze Injection - IVPUSH [id number] PRN PAIN-PACU ORDER X 4 DOSES ONLY Gabapentin 200 mg 04/12/17 22:30 04/21/17 05:53 Neurontin - PO Not Given TID ROSA MARIA Heparin Sodium (Porcine) 1,000 unit 04/20/17 16:07 Heparin - IVPUSH PRN PRN Heparin Heparin Sodium (Porcine) 5,000 unit 04/20/17 16:07 Heparin - IVPUSH PRN PRN Heparin Hydralazine HCl 75 mg 04/17/17 22:00 04/21/17 05:53 Apresoline - PO 75 mg TID ROSA MARIA Administration HEPARIN SOD,PORK IN 0.45% NACL 25,000 units in 500 mls @ 20 mls/hr 04/20/17 16 :15 04/21/17 01:19 Heparin-1/2ns 25,000 Units/500 IVPB 2,070 units/hr TITR ROSA MARIA 41.4 mls/hr Protocol Administration 1,000 UNITS/HR Sodium Chloride 1,000 mls @ 75 mls/hr 04/21/17 08:15 Normal Saline - IV ASDIR [facility] Ibuprofen 400 mg 04/17/17 11:56 04/19/17 01:37 Motrin - PO 400 mg Q6H PRN Administration FEVER Insulin Aspart 1 vial 04/13/17 07:00 04/21/17 07:20 Novolog Vial Sliding Scale - SQ Not Given ACHS [facility] Protocol Insulin Detemir 18 units 04/18/17 13:25 04/21/17 07:20 Levemir Vial SQ Not Given BID@0700,2200 [facility] Labetalol HCl 400 mg 04/12/17 22:30 04/21/17 05:52 Normodyne - PO 400 mg TID [facility] Administration Lidocaine HCl 20 ml 04/14/17 17:30 04/21/17 07:21 Xylocaine 2% Viscous Oral - MM Not Given TIDAC [facility] Losartan Potassium 100 mg 04/16/17 10:42 04/20/17 09:57 Cozaar - PO 100 mg DAILY [facility] Administration Nifedipine 30 mg 04/15/17 16:00 04/20/17 09:57 Procardia Xl - PO 30 mg DAILY [facility] Administration Ondansetron HCl 4 mg 04/21/17 08:15 Zofran Injection IVPUSH Q6H PRN NAUSEA AND/OR VOMITING Oxycodone HCl 10 mg 04/20/17 13:27 04/20/17 22:38 Roxicodone - PO 10 mg Q6H PRN Administration PAIN LEVEL 7 - 10 Sevelamer Carbonate 1,600 mg 04/12/17 22:30 04/21/17 07:51 Renvela - PO Not Given TIDCM ROSA MARIA Sodium Chloride 2 spray 04/17/17 09:10 04/17/17 16:47 [place] Nasal [place] - NS 2 sprays BID PRN Administration NASAL CONGESTION ASSESSMENT/PLAN: 26 year-old female with PMH significant for HTN, IDDM, 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 Admitted for diarrhea, volume overload after missing HD session. Also admitted for right lower leg fluid collection, and left hip pain. ESRD on HD (M, W, F) --HD tomorrow Hypoxia --patient is on home O2 --review of EMR suggests h/o asthma --seen and evaluated by pulmonary --bedside PFT ordered --pre-post (patient previously refused, needs to cooperate) --nocturnal O2 sat monitoring Right gastrocnemius muscle fluid collection --IR aspiration 04/20 Left hip pain --bone biopsy 04/20 Right foot plantar ulcer/abscess --xray: no foreign object --I&D today with Dr. Dubon, cultures pending --had dose vanc on 04/19, get random level in the am --start zosyn 2.25 q12h Facial cellulitis --04/19 CT sinus: (1) prominent soft tissue and fat stranding within the left nasal ala most compatible with cellulitis; (2) subcm hypodensity within the inferior left nasal ala favored to represent a focal phlegmon; no drainable abscess --d/c augmentin; starting zosyn C. difficile --continue metronidazole PO (day #7) --has not had diarrhea Hypertension --BP better controlled on higher dose hydralazine --continue losartan, labetolol, clonidine, nifedipine Coagulopathy h/o PE/DVT/left atrial myxoma --heparin drip dc'd --restart Eliquis Anemia --h/h stable IDDM --Levemir BID --Novolog sliding scale coverage FEN Fluids: PO intake adequate Electrolytes: replete as indicated Nutrition: renal diabetic DVT prophylaxis: Eliquis Dispo: continues to require inpatient care. Full Code. Visit type - Emergency Visit Emergency Visit: Yes ED Registration Date: 04/12/17 Care time: The patient presented to the Emergency Department on the above date and was hospitalized for further evaluation of their emergent condition. - New Patient This patient is new to me today: No - Critical Care Critical Care patient: No
--- NOTE | 2017-04-21 11:39 | OP ---
DATE OF OPERATION: 04/21/2017 PREOPERATIVE DIAGNOSIS: Right foot abscess and cellulitis. POSTOPERATIVE DIAGNOSIS: Right foot abscess and cellulitis. PROCEDURE: Right foot incision and drainage. SURGEON: Devan Dubon DPM ANESTHESIA: IV sedation with local. HEMOSTASIS: Surgical dissection. ESTIMATED BLOOD LOSS: 25 mL PATHOLOGY: None. COMPLICATIONS: None. DESCRIPTION OF PROCEDURE: Patient was brought to the operating room and placed on the operating table in the supine position. I elected to not use a tourniquet during the course of the procedure. Following the induction of IV sedation, local anesthesia was achieved utilizing 20 mL of 2% lidocaine plain. The right foot was scrubbed, prepped, and draped in the usual aseptic fashion. Attention was directed to the plantar lateral foot where a fluctuant ulcer with purulent drainage was visualized and appreciated. I began by performing a 5-cm curvilinear incision overlying the fluctuant area. Immediately upon incision there was purulent material expressed from the subcutaneous tissues. All purulent material was expressed until healthy fibro granular tissue persisted and no purulence was expressed further. The surgical site was then copiously irrigated with sterile saline mixed with Bacitracin. The surgical site was packed in the central aspect using 1/4-inch Iodoform packing. The proximal and distal aspects of the incision sites were loosely coapted using 3-0 nylon. Following the conclusion of the procedure, the surgical site was covered with Xeroform, and a sterile compressive dressing was applied to the right foot consisting of sterile gauze, Julissa, Kerlix, and an Rajiv wrap. The patient tolerated the procedure and anesthesia well without complication. She was transferred from the operating room to the recovery unit with vital signs stable and neurovasculature intact to the right foot. MONTY MANZANARES/[id number] cc: Podiatry
[2017-04-21 13:17] LABS: ANION GAP 13 (8-16); BLOOD UREA NITROGEN 46 mg/dL (7-18); CHLORIDE 97 mmol/L (98-107); CO2 25 mmol/L (21-32); CREATININE 4.7 mg/dL (0.55-1.02); GLUCOSE,RANDOM 216 mg/dL (74-106); POTASSIUM 4.3 mmol/L (3.5-5.1); SODIUM 135 mmol/L (136-145)
--- NOTE | 2017-04-21 13:23 | PN ---
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 H/O PE H/O R ATRIAL MYXOMA S/P ESECTION HTN DM PLAN ABX PER ID HD PER RENAL O2 INHALED BRONCHODILATORS PRN MONITOR O2 SATS ON O2 AND RA NOCTURAL O2 SAT MONITORING PFTS OUTPATIENT DR BECERRA Problem List - Problems (1) Shortness of breath Code(s): R06.02 - SHORTNESS OF BREATH (2) Weakness Code(s): R53.1 - WEAKNESS (3) DKA, type 1 Code(s): E10.10 - TYPE 1 DIABETES MELLITUS WITH KETOACIDOSIS WITHOUT COMA (4) Diabetic foot infection Code(s): E11.69 - TYPE 2 DIABETES MELLITUS WITH OTHER SPECIFIED COMPLICATION; L08.9 - LOCAL INFECTION OF THE SKIN AND SUBCUTANEOUS TISSUE, UNSP (5) Fluid overload Code(s): E87.70 - FLUID OVERLOAD, UNSPECIFIED Qualifiers: Hypervolemia type: unspecified Qualified Code(s): E87.70 - Fluid overload, unspecified (6) History of pulmonary embolus (PE) Code(s): Z86.711 - PERSONAL HISTORY OF PULMONARY EMBOLISM (7) Leg pain, right Code(s): M79.604 - PAIN IN RIGHT LEG (8) Myositis Code(s): M60.9 - MYOSITIS, UNSPECIFIED (9) Osteomyelitis Code(s): M86.9 - OSTEOMYELITIS, UNSPECIFIED Qualifiers: Osteomyelitis location: foot Laterality: right Qualified Code(s): M86.171 - Other acute osteomyelitis, right ankle and foot (10) Oxygen dependent Code(s): Z99.81 - DEPENDENCE ON SUPPLEMENTAL OXYGEN (11) Pulmonary HTN Code(s): I27.20 - PULMONARY HYPERTENSION, UNSPECIFIED (12) Swelling of right lower extremity Code(s): M79.89 - OTHER SPECIFIED SOFT TISSUE DISORDERS (13) ESRD (end stage renal disease) on dialysis Code(s): N18.6 - END STAGE RENAL DISEASE; Z99.2 - DEPENDENCE ON RENAL DIALYSIS (14) HTN (hypertension) Code(s): I10 - ESSENTIAL (PRIMARY) HYPERTENSION Qualifiers: Hypertension type: renovascular hypertension Qualified Code(s): I15.0 - Renovascular hypertension
--- NOTE | 2017-04-21 13:35 | PATH ---
Cytology Non-Gynecological Report Patient Name: THEA SINGH Med. Rec. #: [id number] /Age/Gender: 1990 (Age: 26) / F Account: [id number] Location: 4 SO PEDS/ADOL Taken: 04/20/2017 Received: 04/20/2017 Reported: 04/21/2017 Physicians: Apryl Theodore ACNP Specimen(s) Received RIGHT LOWER EXTREMITY Clinical History Extremity swelling, purulent discharge Final Diagnosis LOWER EXTREMITY, RIGHT, FLUID FOR CYTOLOGY: SATISFACTORY FOR EVALUATION. NO MALIGNANT CELLS IDENTIFIED. SCANT PROTEINACEOUS DEBRIS IN HEMORRHAGIC BACKGROUND WITH FEW NEUTROPHILS AND RARE LYMPHOCYTES PRESENT. Comment: Recommend correlation with clinical findings and follow up as clinically indicated. Electronically Signed Heather Ortiz M.D. Gross Description Approximately 25 cc of opaque fluid received fixed in 50% alcohol. Two cytofunnels and one cellblock prepared.
--- NOTE | 2017-04-21 14:47 | PATH ---
Surgical Pathology Report Patient Name: THEA SINGH Med. Rec. #: [id number] /Age/Gender: 1990 (Age: 26) / F Account: [id number] Location: [facility] PEDS/ADOL Taken: 04/20/2017 Received: 04/20/2017 Reported: 04/21/2017 Physicians: TAYLOR Clark M.D. Specimen(s) Received PELVIC BONE BX Clinical History 26 year old female with destructive lytic lesion symphysis pubis Final Diagnosis PELVIC BONE, BIOPSY: BONE SHOWING PREDOMINANTLY CHRONIC AND FOCAL ACUTE OSTEOMYELITIS. Electronically Signed Lucretia Hopper M.D. Gross Description Received in formalin labeled "pelvic bone biopsy," is a 0.4 cm in length x 0.1 cm in diameter colin, cylindrical portion of bone. The specimen is submitted in toto in one cassette, following decalcification. /04/20/2017 saudi04/20/2017
[2017-04-21] MEDS: NIFEdipine E.R. 30 MG TABLET (FP) PO SCH (14:59)
[2017-04-21] MEDS: LOSARTAN POTASSIUM 50 MG TABLET (FP) PO SCH (14:59)
--- NOTE | 2017-04-21 15:02 | PN ---
Progress Note (short form) - Note Progress Note: Renal follow up for ESRD on HD Pt seen and examined during dialysis BP very high, did not get aM meds AVF with good flow UF goal ~3.5L no sob, chest pain, abd pain s/p debridement of foot abcess this am Vital Signs Temperature 98.9 F 04/21/17 12:05 Pulse Rate 91 H 04/21/17 14:40 Respiratory Rate 18 04/21/17 14:40 Blood Pressure 189/115 04/21/17 14:40 O2 Sat by Pulse Oximetry (%) 99 04/21/17 11:15 Intake & Output 04/18/17 04/19/17 04/20/17 04/21/17 23:59 23:59 23:59 23:59 Intake Total 1044 2463.6 659.6 100 Output Total 25 Balance 1044 2463.6 659.6 75 Weight 70.477 kg 70.307 kg 69.4 kg NAD right foot in dressing trace to 1+ edema in LE CBC, BMP 04/20/17 05:35 04/21/17 12:30 Current Medications Acetaminophen (Tylenol -) 325 mg PO Q6H PRN PRN Reason: PAIN Last Admin: 04/20/17 22:37 Dose: 325 mg Acetaminophen (Tylenol -) 650 mg PO Q6H PRN PRN Reason: PAIN Last Admin: 04/20/17 13:48 Dose: 650 mg Albuterol/Ipratropium (Duoneb -) 1 amp NEB RTID [facility] Last Admin: 04/21/17 13:43 Dose: Not Given Amoxicillin/Clavulanate Potassium (Augmentin - 250mg Tablet) 1 tab PO DAILY [facility] Last Admin: 04/20/17 13:46 Dose: 1 tab Cinacalcet (Sensipar -) 60 mg PO DAILY [facility] Last Admin: 04/20/17 13:47 Dose: 60 mg Clonidine (Catapres -) 0.3 mg PO TID [facility] Last Admin: 04/21/17 14:11 Dose: 0.3 mg Fentanyl (Sublimaze Injection -) 50 mcg IVPUSH [id number] PRN PRN Reason: PAIN-PACU ORDER X 4 DOSES ONLY Gabapentin (Neurontin -) 200 mg PO TID [facility] Last Admin: 04/21/17 14:25 Dose: Not Given Heparin Sodium (Porcine) (Heparin -) 1,000 unit IVPUSH PRN PRN PRN Reason: Heparin Heparin Sodium (Porcine) (Heparin -) 5,000 unit IVPUSH PRN PRN PRN Reason: Heparin Hydralazine HCl (Apresoline -) 75 mg PO TID [facility] Last Admin: 04/21/17 14:59 Dose: 75 mg HEPARIN SOD,PORK IN 0.45% NACL (Heparin-1/2ns 25,000 Units/500) 25,000 units in 500 mls @ 20 mls/hr IVPB TITR ROSA MARIA; 1,000 UNITS/HR PRN Reason: Protocol Last Admin: 04/21/17 01:19 Dose: 2,070 units/hr, 41.4 mls/hr Ibuprofen (Motrin -) 400 mg PO Q6H PRN PRN Reason: FEVER Last Admin: 04/19/17 01:37 Dose: 400 mg Insulin Aspart (Novolog Vial Sliding Scale -) 1 vial SQ ACHS [facility] PRN Reason: Protocol Last Admin: 04/21/17 07:20 Dose: Not Given Insulin Detemir (Levemir Vial) 18 units SQ BID@0700,2200 [facility] Last Admin: 04/21/17 07:20 Dose: Not Given Labetalol HCl (Normodyne -) 400 mg PO TID [facility] Last Admin: 04/21/17 14:59 Dose: 400 mg Lidocaine HCl (Xylocaine 2% Viscous Oral -) 20 ml MM TIDAC [facility] Last Admin: 04/21/17 13:10 Dose: Not Given Losartan Potassium (Cozaar -) 100 mg PO DAILY [facility] Last Admin: 04/21/17 14:59 Dose: 100 mg Nifedipine (Procardia Xl -) 30 mg PO DAILY [facility] Last Admin: 04/21/17 14:59 Dose: 30 mg Ondansetron HCl (Zofran Injection) 4 mg IVPUSH Q6H PRN PRN Reason: NAUSEA AND/OR VOMITING Oxycodone HCl (Roxicodone -) 10 mg PO Q6H PRN PRN Reason: PAIN LEVEL 7 - 10 Last Admin: 04/20/17 22:38 Dose: 10 mg Sevelamer Carbonate (Renvela -) 1,600 mg PO TIDCM [facility] Last Admin: 04/21/17 13:10 Dose: Not Given Sodium Chloride ([place] Nasal [place] -) 2 spray NS BID PRN PRN Reason: NASAL CONGESTION Last Admin: 04/17/17 16:47 Dose: 2 sprays 26 year old woman with PMhx of ESRD on HD (MWF), Hypertension, DM Typw 1, PE on Eliqus who presented to the ED wit complaints of GUTIERRES, diarrhea, and left LE pain. #suspected Pelvic inflammation/fluid collection in LLE awaiting final biopsy results Abx as per ID #[id number] on HD with fluid overload tolerating dialysis well UF goal is 3.5L will continue 3x weekly HD #Hypertension BP high because she did not get am meds to get all meds during HD today Nathan Vo DO
[2017-04-21] MEDS ORDERED: PT OWN MED DRAWER 7, Y5N ONE (16:22)
[2017-04-21] MEDS: CINACALCET HCL 30 MG TAB (FP) PO SCH (16:25)
[2017-04-21] MEDS: AMOX TR/POT CLAV 250MG/125MG TABLETS PO SCH (16:25)
[2017-04-21] MEDS: oxyCODONE HCL 5 MG TABLET PO PRN ×2 (17:49→23:54)
[2017-04-21] MEDS: ACETAMINOPHEN 325 MG TABLET (FP) PO PRN ×2 (17:50→23:53)
[2017-04-21] MEDS ORDERED: PIPERACILLIN/TAZOB 2.25 GM/50 ML PREMIX BAG IVPB SCH (20:45)
[2017-04-21] MEDS ORDERED: PIPERACILLIN/TAZOB 2.25 GM 2.25 GM in DEXTROSE 5%-WATER - 100 ML IVPB ONE (21:15)
[2017-04-21] MEDS: APIXABAN 2.5 MG TABLET PO SCH (21:25)
[2017-04-21] MEDS ORDERED: VANCOMYCIN 1,250 MG in DEXTROSE 5%-WATER - 250 ML IVPB SCH (22:00)
[2017-04-21] MEDS ORDERED: VANCOMYCIN 1,250 MG in DEXTROSE 5%-WATER - 250 ML IVPB ONE (22:00)
[2017-04-22] MEDS: INSULIN SLIDING SCALE (NOVOLOG) 1 VIAL SQ SCH ×4 (06:05→22:04)
[2017-04-22] MEDS: hydrALAZINE HCL 50 MG TABLET (FP) PO SCH ×3 (06:06→22:01)
[2017-04-22] MEDS: cloNIDine HCL 0.1 MG TABLET PO SCH ×3 (06:07→22:02)
[2017-04-22] MEDS: LABETALOL HCL 200 MG TABLET (FP) PO SCH ×3 (06:07→22:02)
[2017-04-22] MEDS: GABAPENTIN 100 MG CAPSULE (FP) PO SCH ×3 (06:08→22:08)
[2017-04-22] MEDS: INSULIN DETEMIR 100 UNITS/ML MDV SQ SCH ×2 (06:09→22:04)
[2017-04-22] MEDS: ACETAMINOPHEN 325 MG TABLET (FP) PO PRN ×3 (06:48→22:03)
[2017-04-22] MEDS: oxyCODONE HCL 5 MG TABLET PO PRN ×3 (06:49→22:02)
[2017-04-22 07:37] LABS: HEMATOCRIT 27.4 % (32.4-45.2); HEMOGLOBIN 8.4 GM/dL (10.7-15.3); MCH 26.7 pg (25.7-33.7); MCHC 30.6 g/dl (32.0-36.0); MEAN CELL VOLUME 87.1 fl (80-96); MEAN PLT VOLUME 8.5 fl (7.5-11.1); PLATELET COUNT 376 K/MM3 (134-434); RBC 3.15 M/mm3 (3.60-5.2); RDW 16.7 % (11.6-15.6); WHITE BLOOD COUNT 11.3 K/mm3 (4.0-10.0)
[2017-04-22] MEDS: ALBUTEROL SO4 2.5/IPRATROPIUM 0.5 INH SOL 3 ML VIAL.NEB. NEB SCH ×3 (08:04→21:10)
[2017-04-22] MEDS: SEVELAMER CARBONATE 800 MG TAB (FP) PO SCH ×3 (08:34→18:30)
[2017-04-22] MEDS: LIDOCAINE VISCOUS 2% ORAL/TOP 20 ML UNIT-DOSE CUP MM SCH ×3 (08:39→17:35)
--- NOTE | 2017-04-22 08:39 | CONS ---
DATE OF CONSULTATION: 04/21/2017 REFERRING PHYSICIAN: Hui Schneider NP HISTORY OF PRESENT ILLNESS: The patient is a 26-year-old black female known to me from previous hospitalization with a past medical history of end-stage renal disease, on hemodialysis 3 times weekly and diabetes mellitus, history of DVT secondary to a port, history of pulmonary embolism 5 years ago, 6 years ago, history of right atrial myxoma, status post resection at [facility] 5, 6 years ago, nonsmoker, O2 dependent for unknown reason, anemia, seizures many years ago, admitted to [facility] on April 12, 2017, secondary to shortness of breath and diarrhea. Patient has also complained of chronic thigh pain over the past 2 weeks which is increasing, left groin. She denied any fevers or chills. She did have some vomiting which was apparently stopped. Patient denied any hemoptysis. Patient underwent a CT of the pelvis and lower extremity on admission which is notable for a partial erosion of the left pubic tubercle with swelling of the left obturator externa muscle. She also had a fluid collection in the right gastrocnemius muscle. She had biopsies in the thighs in apparently 2015, left leg which showed granulation, chronic inflammation. She was also noted to have biopsy in 2017 of the right thigh which revealed chronic and active necrotizing myopathy. Patient was admitted with the above. On admission, she was evaluated by Infectious Disease. She was placed on broad-spectrum antibiotics. Patient underwent a bone biopsy on April 20. The results are pending. Patient is, as stated, on chronic home O2. States that she gets short of breath when she is due for dialysis. Otherwise denied any respiratory complaints. She denies any history of asthma or COPD. She is a nonsmoker. There is no history of exposures. Denies any chronic cough or hemoptysis. PAST MEDICAL HISTORY: Again includes end-stage renal disease, on hemodialysis, right atrial myxoma, anemia, insulin-dependent diabetes mellitus, hypertension, myopathy, status post cholecystectomy, history of MRSA bacteremia in 2017 secondary to infected Perma-Cath, history of pulmonary embolism. CURRENT MEDICATIONS: Include Zofran, Tylenol, Cozaar, Augmentin, heparin, Neurontin, DuoNeb, labetalol, Omadine, Catapres, Procardia, Apresoline, Hazel nasal spray, normal saline, NovoLog, Levemir, Motrin, oxycodone, Sensipar, Renvela. REVIEW OF SYSTEMS: Positive occasional dyspnea, occasional cough. No chest pain. No palpitation. Positive right thigh pain and right lower extremity pain. PHYSICAL EXAMINATION:General: The patient is a well-developed, well-nourished female, awake, alert, currently undergoing hemodialysis, in no acute respiratory distress. Vital Signs: She is currently afebrile, blood pressure is 175/108, respiratory rate is 18, O2 saturation is 99% on 2 L. HEENT: Normocephalic, atraumatic. Neck: Supple. Heart: Regular S1, S2. Chest: Clear. Abdomen: Soft. Bowel sounds are positive. Extremities: Right lower extremity stent. Bilateral lower extremity edema, right greater than left. LABORATORIES: WBC is 13.4, hemoglobin 8.8, hematocrit 28.8 with a platelet count of 364,000. Chemistries pending. Blood gas: PH 7.29, PCO2 of 36, PO2 of 99, bicarbonate of 17 and a saturation of 96. That was on 2 L, nasal cannula, on admission. Chest x-ray: Pulmonary vascular congestion. IMPRESSION: 1. End-stage renal disease, on hemodialysis. 2. Pulmonary vascular congestion secondary to fluid overload. 3. Hypoxemia, etiology to be determined. 4. Hypertension. 5. History of pulmonary embolism. 6. Insulin-dependent poorly controlled diabetes. 7. Suspected pelvic osteomyelitis. 8. cellulitis. PLAN: Supplemental O2. Inhaled bronchodilators p.r.n. Hemodialysis as per Renal. Antibiotics as per Infectious Disease. Will obtain pulmonary function tests as outpatient and check pulse oximetry at rest post exercise. Also nocturnal O2 saturation monitoring. Thank you. SAFIA BECERRA M.D. [id number]
[2017-04-22] MEDS ORDERED: PT OWN MED DRAWER 7, Y5N ONE (09:13)
[2017-04-22] MEDS ORDERED: DEXTROSE 50%-WATER 25 GM/50 ML DISP.SYRIN ONE ×2 (09:23→15:46)
[2017-04-22] MEDS ORDERED: DEXTROSE 50%-WATER - 25 GM/50 ML VIAL IVPUSH ONE ×2 (09:30→16:15)
[2017-04-22] MEDS: NIFEdipine E.R. 30 MG TABLET (FP) PO SCH (09:40)
[2017-04-22] MEDS: CINACALCET HCL 30 MG TAB (FP) PO SCH (09:40)
[2017-04-22] MEDS: APIXABAN 2.5 MG TABLET PO SCH (09:40)
[2017-04-22] MEDS: LOSARTAN POTASSIUM 50 MG TABLET (FP) PO SCH (09:40)
--- NOTE | 2017-04-22 10:37 | PN ---
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 She should be treated with keno terminal operator antibiotics. She may benefit from surgical debridement of the pubic symphysis. My partner and I do not do that surgery. I will inquire with other surgeons (Natural Resource Officer?) if they do that surgery.
[2017-04-22] MEDS ORDERED: ONDANSETRON 4 MG/2 ML VIAL IVPB ONE (12:30)
--- NOTE | 2017-04-22 12:41 | PN ---
Progress Note (short form) - Note Progress Note: Podiatry: S/p R foot incision and drainage of abscess POD#1. Denies F/V/N/C/SOB/CP. AFebrile, VSS. Having diarrhea currently. Attempted to see the patient today, she does not want to be seen currently due to her diarrhea. Will f/u cultures, nursing for dressing change today and will check on patient tomorrow am. Delfino Dubon DPM
--- NOTE | 2017-04-22 13:05 | PN ---
Progress Note (short form) - Note Progress Note: Diarrhea. Breathing feels OK. No acute events overnight. Intake & Output 04/19/17 04/20/17 04/21/17 04/22/17 23:59 23:59 23:59 23:59 Intake Total 2463.6 659.6 480 Output Total 25 Balance 2463.6 659.6 455 Weight 155 lb 153 lb Last Vital Signs Temp Pulse Resp BP Pulse Ox 98.7 F 80 16 148/92 97 04/22/17 06:00 04/22/17 06:00 04/22/17 06:00 04/22/17 06:00 04/21/17 21:00 Active Medications Acetaminophen (Tylenol -) 325 mg PO Q6H PRN PRN Reason: PAIN Last Admin: 04/20/17 22:37 Dose: 325 mg Acetaminophen (Tylenol -) 650 mg PO Q6H PRN PRN Reason: PAIN Last Admin: 04/22/17 06:48 Dose: 650 mg Albuterol/Ipratropium (Duoneb -) 1 amp NEB RTID [facility] Last Admin: 04/22/17 08:04 Dose: 1 amp Apixaban (Eliquis -) 2.5 mg PO BID [facility] Last Admin: 04/22/17 09:40 Dose: 2.5 mg Cinacalcet (Sensipar -) 60 mg PO DAILY [facility] Last Admin: 04/22/17 09:40 Dose: 60 mg Clonidine (Catapres -) 0.3 mg PO TID [facility] Last Admin: 04/22/17 06:07 Dose: 0.3 mg Gabapentin (Neurontin -) 200 mg PO TID [facility] Last Admin: 04/22/17 06:08 Dose: Not Given Hydralazine HCl (Apresoline -) 75 mg PO TID [facility] Last Admin: 04/22/17 06:06 Dose: 75 mg Vancomycin HCl 1,250 mg/ (Dextrose) 250 mls @ 250 mls/hr IVPB BID [facility] PRN Reason: Protocol Ibuprofen (Motrin -) 400 mg PO Q6H PRN PRN Reason: FEVER Last Admin: 04/19/17 01:37 Dose: 400 mg Insulin Aspart (Novolog Vial Sliding Scale -) 1 vial SQ ACHS [facility] PRN Reason: Protocol Last Admin: 04/22/17 11:33 Dose: Not Given Insulin Detemir (Levemir Vial) 18 units SQ BID@0700,2200 [facility] Last Admin: 04/22/17 06:09 Dose: 18 units Labetalol HCl (Normodyne -) 400 mg PO TID [facility] Last Admin: 04/22/17 06:07 Dose: 400 mg Lidocaine HCl (Xylocaine 2% Viscous Oral -) 20 ml MM TIDAC [facility] Last Admin: 04/22/17 11:05 Dose: Not Given Losartan Potassium (Cozaar -) 100 mg PO DAILY [facility] Last Admin: 04/22/17 09:40 Dose: 100 mg Nifedipine (Procardia Xl -) 30 mg PO DAILY [facility] Last Admin: 04/22/17 09:40 Dose: 30 mg Oxycodone HCl (Roxicodone -) 10 mg PO Q6H PRN PRN Reason: PAIN LEVEL 7 - 10 Last Admin: 04/22/17 06:49 Dose: 10 mg Piperacillin/Tazobactam/Dextrose (Zosyn 2.25gm Ivpb (Premix)) 2.25 gm IVPB Q12H [facility] Sevelamer Carbonate (Renvela -) 1,600 mg PO TIDCM [facility] Last Admin: 04/22/17 08:34 Dose: 1,600 mg Sodium Chloride ([place] Nasal [place] -) 2 spray NS BID PRN PRN Reason: NASAL CONGESTION Last Admin: 04/17/17 16:47 Dose: 2 sprays Constitutional: Yes: Awake and alert, NAD s Eyes: Yes: Conjunctiva Clear HENT: Yes: (-) Icterus Cardiovascular: Yes: Regular Rate and Rhythm, S1, S2 Respiratory: Yes: Few basilar rhonchi. No: Stridor, Wheezes Gastrointestinal: Yes: Normal Bowel Sounds, Soft. No: Tenderness Edema: Yes Lab Laboratory Results - last 24 hr 04/21/17 04/21/17 04/21/17 12:30 17:10 21:27 WBC RBC Hgb Hct MCV MCH MCHC RDW Plt Count MPV PTT (Actin FS) Sodium 135 L Potassium 4.3 Chloride 97 L Carbon Dioxide 25 D Anion Gap 13 BUN 46 H Creatinine 4.7 H POC Glucometer 139 312 Random Glucose 216 H Calcium 7.0 L Random Vancomycin 04/22/17 04/22/17 04/22/17 05:35 05:35 05:35 WBC 11.3 H RBC 3.15 L Hgb 8.4 L Hct 27.4 L MCV 87.1 MCH 26.7 MCHC 30.6 L RDW 16.7 H Plt Count 376 MPV 8.5 PTT (Actin FS) 32.0 Sodium Potassium Chloride Carbon Dioxide Anion Gap BUN Creatinine POC Glucometer Random Glucose Calcium Random Vancomycin 27.074 04/22/17 04/22/17 04/22/17 06:03 06:47 09:19 WBC RBC Hgb Hct MCV MCH MCHC RDW Plt Count MPV PTT (Actin FS) Sodium Potassium Chloride Carbon Dioxide Anion Gap BUN Creatinine POC Glucometer 58 91 42 Random Glucose Calcium Random Vancomycin 04/22/17 11:16 WBC RBC Hgb Hct MCV MCH MCHC RDW Plt Count MPV PTT (Actin FS) Sodium Potassium Chloride Carbon Dioxide Anion Gap BUN Creatinine POC Glucometer 82 Random Glucose Calcium Random Vancomycin Problem List - Problems (1) Shortness of breath Code(s): R06.02 - SHORTNESS OF BREATH (2) Weakness Code(s): R53.1 - WEAKNESS (3) DKA, type 1 Code(s): E10.10 - TYPE 1 DIABETES MELLITUS WITH KETOACIDOSIS WITHOUT COMA (4) Diabetic foot infection Code(s): E11.69 - TYPE 2 DIABETES MELLITUS WITH OTHER SPECIFIED COMPLICATION; L08.9 - LOCAL INFECTION OF THE SKIN AND SUBCUTANEOUS TISSUE, UNSP (5) Fluid overload Code(s): E87.70 - FLUID OVERLOAD, UNSPECIFIED Qualifiers: Hypervolemia type: unspecified Qualified Code(s): E87.70 - Fluid overload, unspecified (6) History of pulmonary embolus (PE) Code(s): Z86.711 - PERSONAL HISTORY OF PULMONARY EMBOLISM (7) Leg pain, right Code(s): M79.604 - PAIN IN RIGHT LEG (8) Myositis Code(s): M60.9 - MYOSITIS, UNSPECIFIED (9) Osteomyelitis Code(s): M86.9 - OSTEOMYELITIS, UNSPECIFIED Qualifiers: Osteomyelitis location: foot Laterality: right Qualified Code(s): M86.171 - Other acute osteomyelitis, right ankle and foot (10) Oxygen dependent Code(s): Z99.81 - DEPENDENCE ON SUPPLEMENTAL OXYGEN (11) Pulmonary HTN Code(s): I27.20 - PULMONARY HYPERTENSION, UNSPECIFIED (12) Swelling of right lower extremity Code(s): M79.89 - OTHER SPECIFIED SOFT TISSUE DISORDERS (13) ESRD (end stage renal disease) on dialysis Code(s): N18.6 - END STAGE RENAL DISEASE; Z99.2 - DEPENDENCE ON RENAL DIALYSIS (14) HTN (hypertension) Code(s): I10 - ESSENTIAL (PRIMARY) HYPERTENSION Qualifiers: Hypertension type: renovascular hypertension Qualified Code(s): I15.0 - Renovascular hypertension IMP ESRD ON HD FLUID OVERLOAD HYPOXEMIA PULMONARY HTN 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
--- NOTE | 2017-04-22 15:17 | PN ---
Progress Note, Physician History of Present Illness: S/P I&D R foot soft tissue abscess Foot wound c/s presumed MRSA Pelvic bone bx / asp cultures no growth No fever/ chills L nasal swelling improved - Current Medication List Current Medications: Active Medications Acetaminophen (Tylenol -) 325 mg PO Q6H PRN PRN Reason: PAIN Last Admin: 04/20/17 22:37 Dose: 325 mg Acetaminophen (Tylenol -) 650 mg PO Q6H PRN PRN Reason: PAIN Last Admin: 04/22/17 06:48 Dose: 650 mg Albuterol/Ipratropium (Duoneb -) 1 amp NEB RTID [facility] Last Admin: 04/22/17 14:20 Dose: 1 amp Apixaban (Eliquis -) 2.5 mg PO BID [facility] Last Admin: 04/22/17 09:40 Dose: 2.5 mg Cinacalcet (Sensipar -) 60 mg PO DAILY [facility] Last Admin: 04/22/17 09:40 Dose: 60 mg Clonidine (Catapres -) 0.3 mg PO TID [facility] Last Admin: 04/22/17 13:48 Dose: Not Given Gabapentin (Neurontin -) 200 mg PO TID [facility] Last Admin: 04/22/17 13:49 Dose: Not Given Hydralazine HCl (Apresoline -) 75 mg PO TID [facility] Last Admin: 04/22/17 13:48 Dose: Not Given Vancomycin HCl 1,250 mg/ (Dextrose) 250 mls @ 250 mls/hr IVPB BID [facility] PRN Reason: Protocol Ibuprofen (Motrin -) 400 mg PO Q6H PRN PRN Reason: FEVER Last Admin: 04/19/17 01:37 Dose: 400 mg Insulin Aspart (Novolog Vial Sliding Scale -) 1 vial SQ ACHS [facility] PRN Reason: Protocol Last Admin: 04/22/17 11:33 Dose: Not Given Insulin Detemir (Levemir Vial) 10 units SQ BID@0700,2200 [facility] Labetalol HCl (Normodyne -) 400 mg PO TID [facility] Last Admin: 04/22/17 13:49 Dose: Not Given Lidocaine HCl (Xylocaine 2% Viscous Oral -) 20 ml MM TIDAC [facility] Last Admin: 04/22/17 11:05 Dose: Not Given Losartan Potassium (Cozaar -) 100 mg PO DAILY [facility] Last Admin: 04/22/17 09:40 Dose: 100 mg Nifedipine (Procardia Xl -) 30 mg PO DAILY [facility] Last Admin: 04/22/17 09:40 Dose: 30 mg Oxycodone HCl (Roxicodone -) 10 mg PO Q6H PRN PRN Reason: PAIN LEVEL 7 - 10 Last Admin: 04/22/17 06:49 Dose: 10 mg Piperacillin/Tazobactam/Dextrose (Zosyn 2.25gm Ivpb (Premix)) 2.25 gm IVPB Q12H [facility] Sevelamer Carbonate (Renvela -) 1,600 mg PO TIDCM [facility] Last Admin: 04/22/17 13:00 Dose: Not Given Sodium Chloride ([place] Nasal [place] -) 2 spray NS BID PRN PRN Reason: NASAL CONGESTION Last Admin: 04/17/17 16:47 Dose: 2 sprays - Objective Vital Signs: Vital Signs Temperature 97.7 F 04/22/17 10:00 Pulse Rate 81 04/22/17 10:00 Respiratory Rate 18 04/22/17 10:00 Blood Pressure 138/78 04/22/17 10:00 O2 Sat by Pulse Oximetry (%) 97 04/22/17 09:00 Constitutional: Yes: No Distress Eyes: Yes: Conjunctiva Clear Cardiovascular: Yes: Regular Rate and Rhythm, S1, S2 Respiratory: Yes: CTA Bilaterally Gastrointestinal: Yes: Normal Bowel Sounds, Soft. No: Tenderness Extremities: Yes: Other (R plantar wound packed. No drainage noted) Labs: CBC, BMP 04/22/17 05:35 04/21/17 12:30 INR, PTT INR 1.13 (0.82-1.09) 04/12/17 16:48 Assessment/Plan Nasal cellulitis improved S/P I&D R plantar abscess Suspected pelvic osteomyelitis cultures no growth ESRD Vanco level theraputic Check random level am
--- NOTE | 2017-04-22 16:20 | PN ---
Progress Note (short form) - Note Progress Note: Subjective: The patient was seen at the bedside, she has complaints of feeling dizzy, and left hip pain She is not eating well today and received her 18u of Levemir this AM. Her sugars have been <90s Current Medications Generic Name Dose Route Start Last Admin Trade Name Freq PRN Reason Stop Dose Admin Acetaminophen 325 mg 04/12/17 22:29 04/20/17 22:37 Tylenol - PO 325 mg Q6H PRN Administration PAIN Acetaminophen 650 mg 04/13/17 09:42 04/22/17 06:48 Tylenol - PO 650 mg Q6H PRN Administration PAIN Albuterol/Ipratropium 1 amp 04/18/17 09:17 04/22/17 14:20 Duoneb - NEB 1 amp RTID ROSA MARIA Administration Apixaban 2.5 mg 04/21/17 20:43 04/22/17 09:40 Eliquis - PO 2.5 mg BID ROSA MARIA Administration Cinacalcet 60 mg 04/16/17 13:15 04/22/17 09:40 Sensipar - PO 60 mg DAILY ROSA MARIA Administration Clonidine 0.3 mg 04/12/17 22:30 04/22/17 13:48 Catapres - PO Not Given TID [facility] Dextrose 25 gm 04/22/17 16:09 D50w (Vial) - IVPUSH 04/22/17 16:10 NOW ONE Gabapentin 200 mg 04/12/17 22:30 04/22/17 13:49 Neurontin - PO Not Given TID ROSA MARIA Hydralazine HCl 75 mg 04/17/17 22:00 04/22/17 13:48 Apresoline - PO Not Given TID [facility] Ibuprofen 400 mg 04/17/17 11:56 04/19/17 01:37 Motrin - PO 400 mg Q6H PRN Administration FEVER Insulin Aspart 1 vial 04/13/17 07:00 04/22/17 11:33 Novolog Vial Sliding Scale - SQ Not Given ACHS [facility] Protocol Insulin Detemir 10 units 04/22/17 14:30 Levemir Vial SQ BID@0700,2200 ROSA MARIA Labetalol HCl 400 mg 04/12/17 22:30 04/22/17 13:49 Normodyne - PO Not Given TID [facility] Lidocaine HCl 20 ml 04/14/17 17:30 04/22/17 11:05 Xylocaine 2% Viscous Oral - MM Not Given TIDAC ROSA MARIA Losartan Potassium 100 mg 04/16/17 10:42 04/22/17 09:40 Cozaar - PO 100 mg DAILY ROSA MARIA Administration Nifedipine 30 mg 04/15/17 16:00 04/22/17 09:40 Procardia Xl - PO 30 mg DAILY ROSA MARIA Administration Oxycodone HCl 10 mg 04/20/17 13:27 04/22/17 06:49 Roxicodone - PO 10 mg Q6H PRN Administration PAIN LEVEL 7 - 10 Sevelamer Carbonate 1,600 mg 04/12/17 22:30 04/22/17 13:00 Renvela - PO Not Given TIDCM ROSA MARIA Sodium Chloride 2 spray 04/17/17 09:10 04/17/17 16:47 [place] Nasal [place] - NS 2 sprays BID PRN Administration NASAL CONGESTION Objective: Vital Signs Period Temp Pulse Resp BP Sys/Ames Pulse Ox Last 24 Hr 97.7 F-98.7 F 80-94 16-18 138-178/76-111 97-97 Physical Exam: General: NAD, A&Ox3 Lungs: CTA bilaterally Heart: RRR, S1S2 Abd: Soft, non-tender, non-distended. Normoactive bowel sounds Ext: B/l lower extremity edema. Left knee with medial mass, mobile, mildly tender CBCD WBC 11.3 K/mm3 (4.0-10.0) H 04/22/17 05:35 RBC 3.15 M/mm3 (3.60-5.2) L 04/22/17 05:35 Hgb 8.4 GM/dL (10.7-15.3) L 04/22/17 05:35 Hct 27.4 % (32.4-45.2) L 04/22/17 05:35 MCV 87.1 fl (80-96) 04/22/17 05:35 MCHC 30.6 g/dl (32.0-36.0) L 04/22/17 05:35 RDW 16.7 % (11.6-15.6) H 04/22/17 05:35 Plt Count 376 K/MM3 (134-434) 04/22/17 05:35 MPV 8.5 fl (7.5-11.1) 04/22/17 05:35 CMP Sodium 135 mmol/L (136-145) L 04/21/17 12:30 Potassium 4.3 mmol/L (3.5-5.1) 04/21/17 12:30 Chloride 97 mmol/L (98-107) L 04/21/17 12:30 Carbon Dioxide 25 mmol/L (21-32) D 04/21/17 12:30 Anion Gap 13 (8-16) 04/21/17 12:30 BUN 46 mg/dL (7-18) H 04/21/17 12:30 Creatinine 4.7 mg/dL (0.55-1.02) H 04/21/17 12:30 Creat Clearance w eGFR 8.10 (>60) 04/19/17 06:30 Random Glucose 216 mg/dL (74-106) H 04/21/17 12:30 Calcium 7.0 mg/dL (8.5-10.1) L 04/21/17 12:30 Total Bilirubin 1.2 mg/dL (0.2-1.0) H D 04/19/17 06:30 AST 61 U/L (15-37) H D 04/19/17 06:30 ALT 45 U/L (12-78) 04/19/17 06:30 Alkaline Phosphatase 1427 U/L (45-117) H D 04/19/17 06:30 Total Protein 8.1 g/dl (6.4-8.2) 04/19/17 06:30 Albumin 2.9 g/dl (3.4-5.0) L 04/19/17 06:30 CARDIAC ENZYMES Creatine Kinase 145 IU/L (26-192) 04/12/17 16:48 Troponin I < 0.02 ng/ml (0.00-0.05) 04/12/17 16:48 Microbiology 04/20/17 11:50 Aspirate Gram Stain - Final 04/20/17 11:50 Aspirate Body Fluid Culture - Final NO GROWTH OF AEROBIC ORGANISMS AFTER 48 HOURS INCUBATION 04/20/17 11:50 Aspirate Anaerobic Culture - Final NO ANAEROBES WERE ISOLATED 04/20/17 12:00 Bone Gram Stain - Final 04/20/17 12:00 Bone Tissue Culture - Final NO GROWTH OF AEROBIC ORGANISMS AFTER 48 HOURS INCUBATION 04/20/17 12:00 Bone Anaerobic Culture - Final NO ANAEROBES WERE ISOLATED 04/21/17 10:00 Abscess Gram Stain - Final 04/21/17 10:00 Abscess Wound Culture - Preliminary 04/21/17 10:00 Abscess Gram Stain - Final 04/21/17 10:00 Abscess Wound Culture - Preliminary Presumptive Mrsa (Pbp2a Pos) 04/20/17 14:47 Body Fluid - Other AFB Smear Concentration - Preliminary 04/20/17 14:47 Body Fluid - Other Mycobacterial Culture - Preliminary 04/20/17 14:46 Bone AFB Smear Concentration - Preliminary 04/20/17 14:46 Bone Mycobacterial Culture - Preliminary 04/20/17 14:48 Body Fluid - Other LUISA Preparation - Preliminary 04/20/17 14:48 Body Fluid - Other Fungal Culture - Preliminary 04/20/17 14:47 Bone LUISA Preparation - Preliminary 04/20/17 14:47 Bone Fungal Culture - Preliminary 04/15/17 06:30 Stool Salmonella/Shigella Culture - Final 04/15/17 06:30 Stool Campylobacter Culture - Final NO GROWTH OF CAMPYLOBACTER SPECIES OBTAINED 04/15/17 06:30 Stool Yersinia Culture - Final NO GROWTH OF YERSINIA SPECIES OBTAINED 04/15/17 06:30 Stool Vibrio Culture - Final NO GROWTH OF VIBRIO SPECIES OBTAINED 04/15/17 06:30 Stool Escherichia coli 0157 Culture - Final NO GROWTH OF E COLI 0157 OBTAINED 04/13/17 14:45 Blood - Pre-Dialysis Blood Culture - Final NO GROWTH AFTER 5 DAYS INCUBATION 04/13/17 14:45 Blood - Pre-Dialysis Blood Culture - Final NO GROWTH AFTER 5 DAYS INCUBATION 04/15/17 06:30 Stool Clostridium difficile Antigen (SHI) - Final 04/15/17 06:30 Stool Clostridium difficile Toxin Assay - Final Assessment: This is a 26 year old female with PMHx of ESRD (M,W,F), HTN, IDDM, hx of DVT, recent PE (on coumadin), on home O2, anemia, who presented to the ED with headache, diarrhea, shortness of breath. Plan: 1) ESRD - HD M,W,F 2) Hypoxemia - Patient on home O2 - Pulmonary function testing (attempt to do as inpatient) - Pre/post O2 to assess home O2 needs - Appreciate pulmonary consult 2) Lower extremity and left hip pain - CT showed possible pubic osteomyelitis. Fluid collection seen in medial gastrocnemius muscle of the right lower leg - IR aspiration and bone biopsy performed on 04/20, awaiting results - Right muscle biopsy 08/26/2016: chronic and active necrotizing mypathy, severe - Left thigh biopsy 07/25/2015: Granulation and chronic inflammation involving epimysial/perifascial connective tissue and underlying skeletal muscle - Appreciate rheumatology consult 3) Facial cellulitis - 04/19 CT sinus: (1) prominent soft tissue and fat stranding within the left nasal ala most compatible with cellulitis; (2) subcm hypodensity within the inferior left nasal ala favored to represent a focal phlegmon; no drainable abscess - Vancomycin and Zosyn given yesterday 4) Right plantar abscess - S/p I&D yesterday - Culture with presumptive MRSA - Vancomyin - Check random level in AM 5) C.diff - Completed treatment 6) HTN - Goal BP <140/90 - Continue Losartan 100mg po daily - Continue Labetolol 400mg po tid - Continue Hydralazine 75mg po tid - Continue Clonidine 0.3mg po tid - Continue Nifedipine 30mg po daily 7) Hx of DVT and recent PE - Eliquis 5mg po bid 8) IDDM - Decreased Levemir to 10u sq bid as the patient has become hypoglycemic today requiring D50 - ISS ACHS - BGM ACHS 9) F/E/N: - Renal, diabetic diet - Monitor electrolytes 10) Prophylaxis: - Eliquis 5mg po bid 11) Dispo: - Requires continued inpatient care CODE STATUS: FULL CODE Visit type - Emergency Visit Emergency Visit: Yes ED Registration Date: 04/12/17 Care time: The patient presented to the Emergency Department on the above date and was hospitalized for further evaluation of their emergent condition. - New Patient This patient is new to me today: No - Critical Care Critical Care patient: No
--- NOTE | 2017-04-22 16:45 | PN ---
Progress Note (short form) - Note Progress Note: Renal follow up for ESRD on HD Pt seen and examined at the bedside awake and alert feels weak, bloated no sob, chest pain, fevers Vital Signs Temperature 97.7 F 04/22/17 10:00 Pulse Rate 81 04/22/17 10:00 Respiratory Rate 18 04/22/17 10:00 Blood Pressure 138/78 04/22/17 10:00 O2 Sat by Pulse Oximetry (%) 97 04/22/17 09:00 Intake & Output 04/19/17 04/20/17 04/21/17 04/22/17 23:59 23:59 23:59 23:59 Intake Total 2463.6 659.6 480 Output Total 25 Balance 2463.6 659.6 455 Weight 70.307 kg 69.4 kg NAD right foot in dressing trace to 1+ edema in LE CBC, BMP 04/22/17 05:35 04/21/17 12:30 Current Medications Acetaminophen (Tylenol -) 325 mg PO Q6H PRN PRN Reason: PAIN Last Admin: 04/20/17 22:37 Dose: 325 mg Acetaminophen (Tylenol -) 650 mg PO Q6H PRN PRN Reason: PAIN Last Admin: 04/22/17 16:00 Dose: 650 mg Albuterol/Ipratropium (Duoneb -) 1 amp NEB RTID [facility] Last Admin: 04/22/17 14:20 Dose: 1 amp Apixaban (Eliquis -) 5 mg PO BID [facility] Cinacalcet (Sensipar -) 60 mg PO DAILY [facility] Last Admin: 04/22/17 09:40 Dose: 60 mg Clonidine (Catapres -) 0.3 mg PO TID [facility] Last Admin: 04/22/17 13:48 Dose: Not Given Gabapentin (Neurontin -) 200 mg PO TID [facility] Last Admin: 04/22/17 13:49 Dose: Not Given Hydralazine HCl (Apresoline -) 75 mg PO TID [facility] Last Admin: 04/22/17 13:48 Dose: Not Given Ibuprofen (Motrin -) 400 mg PO Q6H PRN PRN Reason: FEVER Last Admin: 04/19/17 01:37 Dose: 400 mg Insulin Aspart (Novolog Vial Sliding Scale -) 1 vial SQ ACHS [facility] PRN Reason: Protocol Last Admin: 04/22/17 11:33 Dose: Not Given Insulin Detemir (Levemir Vial) 10 units SQ BID@0700,2200 [facility] Labetalol HCl (Normodyne -) 400 mg PO TID [facility] Last Admin: 04/22/17 13:49 Dose: Not Given Lidocaine HCl (Xylocaine 2% Viscous Oral -) 20 ml MM TIDAC [facility] Last Admin: 04/22/17 11:05 Dose: Not Given Losartan Potassium (Cozaar -) 100 mg PO DAILY [facility] Last Admin: 04/22/17 09:40 Dose: 100 mg Nifedipine (Procardia Xl -) 30 mg PO DAILY [facility] Last Admin: 04/22/17 09:40 Dose: 30 mg Oxycodone HCl (Roxicodone -) 10 mg PO Q6H PRN PRN Reason: PAIN LEVEL 7 - 10 Last Admin: 04/22/17 15:51 Dose: 10 mg Sevelamer Carbonate (Renvela -) 1,600 mg PO TIDCM [facility] Last Admin: 04/22/17 13:00 Dose: Not Given Sodium Chloride ([place] Nasal [place] -) 2 spray NS BID PRN PRN Reason: NASAL CONGESTION Last Admin: 04/17/17 16:47 Dose: 2 sprays 26 year old woman with PMhx of ESRD on HD (MWF), Hypertension, DM Typw 1, PE on Eliqus who presented to the ED wit complaints of GUTIERRES, diarrhea, and left LE pain. #suspected Pelvic inflammation/fluid collection in LLE biopsy showed imflamation chronic/acute osteomylitis culture w/o growth to date RLE abcess grew MRSA on VAnco #ESRD on HD with fluid overload for dialysis tomorrow UF as tolerated #Hypertension ternd bp continue present meds Nathan Tavo HUBBARD
[2017-04-22] MEDS: APIXABAN 5 MG TABLET PO SCH (22:02)
[2017-04-23] MEDS: ACETAMINOPHEN 325 MG TABLET (FP) PO PRN ×3 (04:09→21:42)
[2017-04-23] MEDS: oxyCODONE HCL 5 MG TABLET PO PRN ×3 (04:10→21:43)
[2017-04-23] MEDS: hydrALAZINE HCL 50 MG TABLET (FP) PO SCH ×3 (06:10→21:38)
[2017-04-23] MEDS: GABAPENTIN 100 MG CAPSULE (FP) PO SCH ×3 (06:29→21:36)
[2017-04-23] MEDS: cloNIDine HCL 0.1 MG TABLET PO SCH ×3 (06:29→21:36)
[2017-04-23] MEDS: INSULIN DETEMIR 100 UNITS/ML MDV SQ SCH ×2 (06:30→21:39)
[2017-04-23] MEDS: LABETALOL HCL 200 MG TABLET (FP) PO SCH ×3 (06:30→21:36)
[2017-04-23] MEDS: INSULIN SLIDING SCALE (NOVOLOG) 1 VIAL SQ SCH ×4 (06:30→21:41)
[2017-04-23] MEDS: LIDOCAINE VISCOUS 2% ORAL/TOP 20 ML UNIT-DOSE CUP MM SCH ×3 (08:00→17:09)
[2017-04-23] MEDS: ALBUTEROL SO4 2.5/IPRATROPIUM 0.5 INH SOL 3 ML VIAL.NEB. NEB SCH ×3 (08:08→20:54)
--- NOTE | 2017-04-23 08:16 | PN ---
Progress Note (short form) - Note Progress Note: Subjective: The patient was seen at the bedside, she reports feeling "great" today. Current Medications Generic Name Dose Route Start Last Admin Trade Name Jase PRN Reason Stop Dose Admin Acetaminophen 325 mg 04/12/17 22:29 04/20/17 22:37 Tylenol - PO 325 mg Q6H PRN Administration PAIN Acetaminophen 650 mg 04/13/17 09:42 04/23/17 04:09 Tylenol - PO 650 mg Q6H PRN Administration PAIN Albuterol/Ipratropium 1 amp 04/18/17 09:17 04/23/17 08:08 Duoneb - NEB Not Given RTID ROSA MARIA Apixaban 5 mg 04/22/17 22:00 04/22/17 22:02 Eliquis - PO 5 mg BID ROSA MARIA Administration Cinacalcet 60 mg 04/16/17 13:15 04/22/17 09:40 Sensipar - PO 60 mg DAILY ROSA MARIA Administration Clonidine 0.3 mg 04/12/17 22:30 04/23/17 06:29 Catapres - PO 0.3 mg TID ROSA MARIA Administration Epoetin Abiel 20,000 unit 04/23/17 09:00 Procrit - IVPUSH 04/23/17 09:01 ONCE ONE Gabapentin 200 mg 04/12/17 22:30 04/23/17 06:29 Neurontin - PO 200 mg TID ROSA MARIA Administration Hydralazine HCl 75 mg 04/17/17 22:00 04/22/17 22:01 Apresoline - PO 75 mg TID ROSA MARIA Administration Ibuprofen 400 mg 04/17/17 11:56 04/19/17 01:37 Motrin - PO 400 mg Q6H PRN Administration FEVER Insulin Aspart 1 vial 04/13/17 07:00 04/23/17 06:30 Novolog Vial Sliding Scale - SQ 10 units ACHS ROSA MARIA Administration Protocol Insulin Detemir 15 units 04/23/17 08:13 Levemir Vial SQ BID@0700,2200 ROSA MARIA Labetalol HCl 400 mg 04/12/17 22:30 04/23/17 06:30 Normodyne - PO 400 mg TID ROSA MARIA Administration Lidocaine HCl 20 ml 04/14/17 17:30 04/23/17 08:00 Xylocaine 2% Viscous Oral - MM Not Given TIDAC ROSA MARIA Losartan Potassium 100 mg 04/16/17 10:42 04/22/17 09:40 Cozaar - PO 100 mg DAILY ROSA MARIA Administration Nifedipine 30 mg 04/15/17 16:00 04/22/17 09:40 Procardia Xl - PO 30 mg DAILY ROSA MARIA Administration Oxycodone HCl 10 mg 04/20/17 13:27 04/23/17 04:10 Roxicodone - PO 10 mg Q6H PRN Administration PAIN LEVEL 7 - 10 Sevelamer Carbonate 1,600 mg 04/12/17 22:30 04/22/17 18:30 Renvela - PO 1,600 mg TIDCM ROSA MARIA Administration Sodium Chloride 2 spray 04/17/17 09:10 04/17/17 16:47 [place] Nasal [place] - NS 2 sprays BID PRN Administration NASAL CONGESTION Objective: Vital Signs Period Temp Pulse Resp BP Sys/Ames Pulse Ox Last 24 Hr 97.7 F-98.2 F 79-91 16-18 128-150/74-91 97-97 Physical Exam: General: NAD, A&Ox3 Lungs: CTA bilaterally Heart: RRR, S1S2 Abd: Soft, non-tender, non-distended. Normoactive bowel sounds Ext: B/l lower extremity edema. LUE AV fistula CBCD WBC 11.3 K/mm3 (4.0-10.0) H 04/22/17 05:35 RBC 3.15 M/mm3 (3.60-5.2) L 04/22/17 05:35 Hgb 8.4 GM/dL (10.7-15.3) L 04/22/17 05:35 Hct 27.4 % (32.4-45.2) L 04/22/17 05:35 MCV 87.1 fl (80-96) 04/22/17 05:35 MCHC 30.6 g/dl (32.0-36.0) L 04/22/17 05:35 RDW 16.7 % (11.6-15.6) H 04/22/17 05:35 Plt Count 376 K/MM3 (134-434) 04/22/17 05:35 MPV 8.5 fl (7.5-11.1) 04/22/17 05:35 CMP Sodium 135 mmol/L (136-145) L 04/21/17 12:30 Potassium 4.3 mmol/L (3.5-5.1) 04/21/17 12:30 Chloride 97 mmol/L (98-107) L 04/21/17 12:30 Carbon Dioxide 25 mmol/L (21-32) D 04/21/17 12:30 Anion Gap 13 (8-16) 04/21/17 12:30 BUN 46 mg/dL (7-18) H 04/21/17 12:30 Creatinine 4.7 mg/dL (0.55-1.02) H 04/21/17 12:30 Creat Clearance w eGFR 8.10 (>60) 04/19/17 06:30 Random Glucose 216 mg/dL (74-106) H 04/21/17 12:30 Calcium 7.0 mg/dL (8.5-10.1) L 04/21/17 12:30 Total Bilirubin 1.2 mg/dL (0.2-1.0) H D 04/19/17 06:30 AST 61 U/L (15-37) H D 04/19/17 06:30 ALT 45 U/L (12-78) 04/19/17 06:30 Alkaline Phosphatase 1427 U/L (45-117) H D 04/19/17 06:30 Total Protein 8.1 g/dl (6.4-8.2) 04/19/17 06:30 Albumin 2.9 g/dl (3.4-5.0) L 04/19/17 06:30 CARDIAC ENZYMES Creatine Kinase 145 IU/L (26-192) 04/12/17 16:48 Troponin I < 0.02 ng/ml (0.00-0.05) 04/12/17 16:48 Microbiology 04/20/17 11:50 Aspirate Gram Stain - Final 04/20/17 11:50 Aspirate Body Fluid Culture - Final NO GROWTH OF AEROBIC ORGANISMS AFTER 48 HOURS INCUBATION 04/20/17 11:50 Aspirate Anaerobic Culture - Final NO ANAEROBES WERE ISOLATED 04/20/17 12:00 Bone Gram Stain - Final 04/20/17 12:00 Bone Tissue Culture - Final NO GROWTH OF AEROBIC ORGANISMS AFTER 48 HOURS INCUBATION 04/20/17 12:00 Bone Anaerobic Culture - Final NO ANAEROBES WERE ISOLATED 04/21/17 10:00 Abscess Gram Stain - Final 04/21/17 10:00 Abscess Wound Culture - Preliminary 04/21/17 10:00 Abscess Gram Stain - Final 04/21/17 10:00 Abscess Wound Culture - Preliminary Presumptive Mrsa (Pbp2a Pos) 04/20/17 14:47 Body Fluid - Other AFB Smear Concentration - Preliminary 04/20/17 14:47 Body Fluid - Other Mycobacterial Culture - Preliminary 04/20/17 14:46 Bone AFB Smear Concentration - Preliminary 04/20/17 14:46 Bone Mycobacterial Culture - Preliminary 04/20/17 14:48 Body Fluid - Other LUISA Preparation - Preliminary 04/20/17 14:48 Body Fluid - Other Fungal Culture - Preliminary 04/20/17 14:47 Bone LUISA Preparation - Preliminary 04/20/17 14:47 Bone Fungal Culture - Preliminary 04/15/17 06:30 Stool Salmonella/Shigella Culture - Final 04/15/17 06:30 Stool Campylobacter Culture - Final NO GROWTH OF CAMPYLOBACTER SPECIES OBTAINED 04/15/17 06:30 Stool Yersinia Culture - Final NO GROWTH OF YERSINIA SPECIES OBTAINED 04/15/17 06:30 Stool Vibrio Culture - Final NO GROWTH OF VIBRIO SPECIES OBTAINED 04/15/17 06:30 Stool Escherichia coli 0157 Culture - Final NO GROWTH OF E COLI 0157 OBTAINED 04/13/17 14:45 Blood - Pre-Dialysis Blood Culture - Final NO GROWTH AFTER 5 DAYS INCUBATION 04/13/17 14:45 Blood - Pre-Dialysis Blood Culture - Final NO GROWTH AFTER 5 DAYS INCUBATION 04/15/17 06:30 Stool Clostridium difficile Antigen (SHI) - Final 04/15/17 06:30 Stool Clostridium difficile Toxin Assay - Final Assessment: This is a 26 year old female with PMHx of ESRD (M,W,F), HTN, IDDM, hx of DVT, recent PE (on coumadin), on home O2, anemia, who presented to the ED with headache, diarrhea, shortness of breath. Plan: 1) ESRD - HD M,W,F 2) Hypoxemia - Patient on home O2 - Pulmonary function testing (attempt to do as inpatient) - Pre/post O2 to assess home O2 needs - Appreciate pulmonary consult 2) Chronic/acute pubis osteomyelitis - Per CT and bone biopsy - Blood cultures with NGTD - F/u ID consult for further abx recommendations 3) Right lower extremity fluid collection - Biopsy results from 04/20: No malignant cells. Scant proteinceous debris in hemorrhagic background with few neutrophils and rare lymphocytes present - Right muscle biopsy 08/26/2016: chronic and active necrotizing mypathy, severe - Left thigh biopsy 07/25/2015: Granulation and chronic inflammation involving epimysial/perifascial connective tissue and underlying skeletal muscle - Appreciate rheumatology consult 3) Facial cellulitis - Improving - Vancomycin, dose per level (therapeutic yesterday) - 04/19 CT sinus: (1) prominent soft tissue and fat stranding within the left nasal ala most compatible with cellulitis; (2) subcm hypodensity within the inferior left nasal ala favored to represent a focal phlegmon; no drainable abscess 4) Right plantar abscess - S/p I&D yesterday - Culture with presumptive MRSA - Vancomyin dose per level, check this AM 5) C.diff - Completed treatment 6) HTN - Goal BP <140/90 - Continue Losartan 100mg po daily - Continue Labetolol 400mg po tid - Continue Hydralazine 75mg po tid - Continue Clonidine 0.3mg po tid - Continue Nifedipine 30mg po daily (patient states it makes her dizzy and is refusing to take it) 7) Hx of DVT and recent PE - Eliquis 5mg po bid 8) IDDM - Levemir 15u sq bid - ISS ACHS - BGM ACHS 9) F/E/N: - Renal, diabetic diet - Monitor electrolytes 10) Prophylaxis: - Eliquis 5mg po bid 11) Dispo: - Requires continued inpatient care CODE STATUS: FULL CODE Visit type - Emergency Visit Emergency Visit: Yes ED Registration Date: 04/12/17 Care time: The patient presented to the Emergency Department on the above date and was hospitalized for further evaluation of their emergent condition. - New Patient This patient is new to me today: No - Critical Care Critical Care patient: No
[2017-04-23] MEDS: SEVELAMER CARBONATE 800 MG TAB (FP) PO SCH ×2 (08:30→12:35)
[2017-04-23] MEDS ORDERED: EPOETIN ALFA 20,000 UNIT/1 ML VIAL IVPUSH ONE (09:00)
[2017-04-23 09:37] LABS: ALBUMIN 2.6 g/dl (3.4-5.0); ANION GAP 15 (8-16); BILIRUBIN,TOTAL 1.5 mg/dL (0.2-1.0); BLOOD UREA NITROGEN 54 mg/dL (7-18); CHLORIDE 92 mmol/L (98-107); CO2 22 mmol/L (21-32); CREATININE 5.4 mg/dL (0.55-1.02); PHOSPHOROUS 5.7 mg/dL (2.5-4.9); POTASSIUM 4.9 mmol/L (3.5-5.1); SGOT/AST 44 U/L (15-37); SGPT/ALT 31 U/L (12-78); SODIUM 129 mmol/L (136-145); TOT PROT 7.8 g/dl (6.4-8.2)
[2017-04-23 09:53] LABS: ALK PHOS 1580 U/L (45-117)
[2017-04-23] MEDS ORDERED: PT OWN MED DRAWER 7, Y5N ONE ×2 (09:55→13:14)
[2017-04-23 10:10] LABS: MCHC 31.3 g/dl (32.0-36.0); RDW 16.5 % (11.6-15.6)
[2017-04-23 10:11] LABS: GLUCOSE,RANDOM 449 mg/dL (74-106)
[2017-04-23 10:41] LABS: HEMATOCRIT 25.6 % (32.4-45.2); MEAN CELL VOLUME 86.2 fl (80-96); PLATELET COUNT 368 K/MM3 (134-434); RBC 2.97 M/mm3 (3.60-5.2); WHITE BLOOD COUNT 10.9 K/mm3 (4.0-10.0)
[2017-04-23] MEDS ORDERED: INSULIN (NOVOLOG) ASPART 100 UNITS/ML 10ML VIAL ONE (10:42)
[2017-04-23] MEDS: LOSARTAN POTASSIUM 50 MG TABLET (FP) PO SCH (11:34)
[2017-04-23] MEDS: NIFEdipine E.R. 30 MG TABLET (FP) PO SCH (11:35)
[2017-04-23] MEDS: CINACALCET HCL 30 MG TAB (FP) PO SCH (12:30)
--- NOTE | 2017-04-23 12:49 | PN ---
Progress Note (short form) - Note Progress Note: Renal follow up for ESRD on HD Pt seen and examined during dialysis BP very high at the end of treatment AVF working well UF goal was 3.7L got clonidine at 6am received Losartan and Nifedpine during dialysis pt has mild GUTIERRES Vital Signs Temperature 98.2 F 04/23/17 09:00 Pulse Rate 94 H 04/23/17 09:50 Respiratory Rate 18 04/23/17 09:50 Blood Pressure 205/122 04/23/17 11:30 O2 Sat by Pulse Oximetry (%) 97 04/22/17 21:00 Intake & Output 04/20/17 04/21/17 04/22/17 04/23/17 23:59 23:59 23:59 23:59 Intake Total 659.6 480 600 550 Output Total 25 Balance 659.6 455 600 550 Weight 69.4 kg NAD right foot in dressing trace to 1+ edema in LE CBC, BMP 04/23/17 09:38 04/23/17 08:10 Current Medications Acetaminophen (Tylenol -) 325 mg PO Q6H PRN PRN Reason: PAIN Last Admin: 04/23/17 12:29 Dose: 325 mg Acetaminophen (Tylenol -) 650 mg PO Q6H PRN PRN Reason: PAIN Last Admin: 04/23/17 04:09 Dose: 650 mg Albuterol/Ipratropium (Duoneb -) 1 amp NEB RTID [facility] Last Admin: 04/23/17 08:08 Dose: Not Given Apixaban (Eliquis -) 5 mg PO BID [facility] Last Admin: 04/22/17 22:02 Dose: 5 mg Cinacalcet (Sensipar -) 60 mg PO DAILY [facility] Last Admin: 04/23/17 12:30 Dose: 60 mg Clonidine (Catapres -) 0.3 mg PO TID [facility] Last Admin: 04/23/17 06:29 Dose: 0.3 mg Gabapentin (Neurontin -) 200 mg PO TID [facility] Last Admin: 04/23/17 06:29 Dose: 200 mg Hydralazine HCl (Apresoline -) 75 mg PO TID [facility] Last Admin: 04/22/17 22:01 Dose: 75 mg Ibuprofen (Motrin -) 400 mg PO Q6H PRN PRN Reason: FEVER Last Admin: 01/15/18 01:37 Dose: 400 mg Insulin Aspart (Novolog Vial Sliding Scale -) 1 vial SQ ACHS [facility] PRN Reason: Protocol Last Admin: 04/23/17 12:36 Dose: 10 unit Insulin Detemir (Levemir Vial) 15 units SQ BID@0700,2200 [facility] Labetalol HCl (Normodyne -) 400 mg PO TID [facility] Last Admin: 04/23/17 06:30 Dose: 400 mg Lidocaine HCl (Xylocaine 2% Viscous Oral -) 20 ml MM TIDAC [facility] Last Admin: 04/23/17 12:41 Dose: Not Given Losartan Potassium (Cozaar -) 100 mg PO DAILY [facility] Last Admin: 04/23/17 11:34 Dose: 100 mg Nifedipine (Procardia Xl -) 30 mg PO DAILY [facility] Last Admin: 04/23/17 11:35 Dose: Not Given Oxycodone HCl (Roxicodone -) 10 mg PO Q6H PRN PRN Reason: PAIN LEVEL 7 - 10 Last Admin: 04/23/17 12:19 Dose: 10 mg Sevelamer Carbonate (Renvela -) 1,600 mg PO TIDCM [facility] Last Admin: 04/23/17 12:35 Dose: 1,600 mg Sodium Chloride ([place] Nasal [place] -) 2 spray NS BID PRN PRN Reason: NASAL CONGESTION Last Admin: 04/17/17 16:47 Dose: 2 sprays 26 year old woman with PMhx of ESRD on HD (MWF), Hypertension, DM Typw 1, PE on Eliqus who presented to the ED wit complaints of GUTIERRES, diarrhea, and left LE pain. #suspected Pelvic inflammation/fluid collection in LLE biopsy showed inflammation chronic/acute osteomylitis culture w/o growth to date RLE abcess grew MRSA vanco level was 24 pre-HD, not redosed with dialysis will repeat level tomorrow #ESRD on HD with fluid overload tolerated HD with 3.7 L UF will plan for abridged treatment tomorrow for UF #Hypertension BP very high got AM meds now if not improved can give clonidine early goal BP < 140/90 Nathan Vo DO
[2017-04-23] MEDS: APIXABAN 5 MG TABLET PO SCH ×2 (14:01→14:04)
--- NOTE | 2017-04-23 16:38 | PN ---
Progress Note, Physician History of Present Illness: pulmonary alert,nad,comfortale - Current Medication List Current Medications: Active Medications Acetaminophen (Tylenol -) 325 mg PO Q6H PRN PRN Reason: PAIN Last Admin: 04/23/17 12:29 Dose: 325 mg Acetaminophen (Tylenol -) 650 mg PO Q6H PRN PRN Reason: PAIN Last Admin: 04/23/17 04:09 Dose: 650 mg Albuterol/Ipratropium (Duoneb -) 1 amp NEB RTID [facility] Last Admin: 04/23/17 14:15 Dose: 1 amp Apixaban (Eliquis -) 5 mg PO Q12H [facility] Last Admin: 04/23/17 14:01 Dose: 5 mg Cinacalcet (Sensipar -) 60 mg PO DAILY [facility] Last Admin: 04/23/17 12:30 Dose: 60 mg Clonidine (Catapres -) 0.3 mg PO TID [facility] Last Admin: 04/23/17 13:30 Dose: 0.3 mg Gabapentin (Neurontin -) 200 mg PO TID [facility] Last Admin: 04/23/17 13:32 Dose: 200 mg Hydralazine HCl (Apresoline -) 75 mg PO TID [facility] Last Admin: 04/23/17 13:32 Dose: 75 mg Ibuprofen (Motrin -) 400 mg PO Q6H PRN PRN Reason: FEVER Last Admin: 04/19/17 01:37 Dose: 400 mg Insulin Aspart (Novolog Vial Sliding Scale -) 1 vial SQ ACHS [facility] PRN Reason: Protocol Last Admin: 04/23/17 12:36 Dose: 10 unit Insulin Detemir (Levemir Vial) 15 units SQ BID@0700,2200 [facility] Labetalol HCl (Normodyne -) 400 mg PO TID [facility] Last Admin: 04/23/17 13:32 Dose: 400 mg Lidocaine HCl (Xylocaine 2% Viscous Oral -) 20 ml MM TIDAC [facility] Last Admin: 04/23/17 12:41 Dose: Not Given Losartan Potassium (Cozaar -) 100 mg PO DAILY [facility] Last Admin: 04/23/17 11:34 Dose: 100 mg Nifedipine (Procardia Xl -) 30 mg PO DAILY [facility] Last Admin: 04/23/17 11:35 Dose: Not Given Oxycodone HCl (Roxicodone -) 10 mg PO Q6H PRN PRN Reason: PAIN LEVEL 7 - 10 Last Admin: 04/23/17 12:19 Dose: 10 mg Sevelamer Carbonate (Renvela -) 1,600 mg PO TIDCM [facility] Last Admin: 04/23/17 12:35 Dose: 1,600 mg Sodium Chloride ([place]al [place] -) 2 spray NS BID PRN PRN Reason: NASAL CONGESTION Last Admin: 04/17/17 16:47 Dose: 2 sprays - Objective Vital Signs: Vital Signs Temperature 98.2 F 04/23/17 09:00 Pulse Rate 94 H 04/23/17 14:25 Respiratory Rate 18 04/23/17 12:15 Blood Pressure 181/93 04/23/17 14:25 O2 Sat by Pulse Oximetry (%) 97 04/22/17 21:00 Constitutional: Yes: Well Nourished, Calm Eyes: Yes: WNL HENT: Yes: WNL Neck: Yes: WNL Cardiovascular: Yes: Regular Rate and Rhythm, S1, S2 Respiratory: Yes: Diminished Gastrointestinal: Yes: Normal Bowel Sounds, Soft Extremities: Yes: WNL Edema: Yes Labs: CBC, BMP 04/23/17 09:38 04/23/17 08:10 INR, PTT INR 1.13 (0.82-1.09) 04/12/17 16:48 Problem List - Problems (1) Shortness of breath Code(s): R06.02 - SHORTNESS OF BREATH (2) Weakness Code(s): R53.1 - WEAKNESS (3) DKA, type 1 Code(s): E10.10 - TYPE 1 DIABETES MELLITUS WITH KETOACIDOSIS WITHOUT COMA (4) Diabetic foot infection Code(s): E11.69 - TYPE 2 DIABETES MELLITUS WITH OTHER SPECIFIED COMPLICATION; L08.9 - LOCAL INFECTION OF THE SKIN AND SUBCUTANEOUS TISSUE, UNSP (5) Fluid overload Code(s): E87.70 - FLUID OVERLOAD, UNSPECIFIED Qualifiers: Hypervolemia type: unspecified Qualified Code(s): E87.70 - Fluid overload, unspecified (6) History of pulmonary embolus (PE) Code(s): Z86.711 - PERSONAL HISTORY OF PULMONARY EMBOLISM (7) Leg pain, right Code(s): M79.604 - PAIN IN RIGHT LEG (8) Myositis Code(s): M60.9 - MYOSITIS, UNSPECIFIED (9) Osteomyelitis Code(s): M86.9 - OSTEOMYELITIS, UNSPECIFIED Qualifiers: Osteomyelitis location: foot Laterality: right (10) Oxygen dependent Code(s): Z99.81 - DEPENDENCE ON SUPPLEMENTAL OXYGEN (11) Pulmonary HTN Code(s): I27.20 - PULMONARY HYPERTENSION, UNSPECIFIED (12) Swelling of right lower extremity Code(s): M79.89 - OTHER SPECIFIED SOFT TISSUE DISORDERS (13) ESRD (end stage renal disease) on dialysis Code(s): N18.6 - END STAGE RENAL DISEASE; Z99.2 - DEPENDENCE ON RENAL DIALYSIS (14) HTN (hypertension) Code(s): I10 - ESSENTIAL (PRIMARY) HYPERTENSION Qualifiers: Hypertension type: renovascular hypertension Qualified Code(s): I15.0 - Renovascular hypertension Assessment/Plan IMP ESRD ON HD FLUID OVERLOAD HYPOXEMIA PULMONARY HTN LIKELY PELVIC OSTEO H/O PE H/O R ATRIAL MYXOMA S/P ESECTION HTN DM PLAN HD PER RENAL O2 INHALED BRONCHODILATORS PRN MONITOR O2 SATS ON O2 AND RA NOCTURAL O2 SAT MONITORING PFTS OUTPATIENT DR BECERRA Problem List - Problems (1) Shortness of breath Code(s): R06.02 - SHORTNESS OF BREATH (2) Weakness Code(s): R53.1 - WEAKNESS (3) DKA, type 1 Code(s): E10.10 - TYPE 1 DIABETES MELLITUS WITH KETOACIDOSIS WITHOUT COMA (4) Diabetic foot infection Code(s): E11.69 - TYPE 2 DIABETES MELLITUS WITH OTHER SPECIFIED COMPLICATION; L08.9 - LOCAL INFECTION OF THE SKIN AND SUBCUTANEOUS TISSUE, UNSP (5) Fluid overload Code(s): E87.70 - FLUID OVERLOAD, UNSPECIFIED Qualifiers: Hypervolemia type: unspecified Qualified Code(s): E87.70 - Fluid overload, unspecified (6) History of pulmonary embolus (PE) Code(s): Z86.711 - PERSONAL HISTORY OF PULMONARY EMBOLISM (7) Leg pain, right Code(s): M79.604 - PAIN IN RIGHT LEG (8) Myositis Code(s): M60.9 - MYOSITIS, UNSPECIFIED (9) Osteomyelitis Code(s): M86.9 - OSTEOMYELITIS, UNSPECIFIED Qualifiers: Osteomyelitis location: foot Laterality: right Qualified Code(s): M86.171 - Other acute osteomyelitis, right ankle and foot (10) Oxygen dependent Code(s): Z99.81 - DEPENDENCE ON SUPPLEMENTAL OXYGEN (11) Pulmonary HTN Code(s): I27.20 - PULMONARY HYPERTENSION, UNSPECIFIED (12) Swelling of right lower extremity Code(s): M79.89 - OTHER SPECIFIED SOFT TISSUE DISORDERS (13) ESRD (end stage renal disease) on dialysis Code(s): N18.6 - END STAGE RENAL DISEASE; Z99.2 - DEPENDENCE ON RENAL DIALYSIS (14) HTN (hypertension) Code(s): I10 - ESSENTIAL (PRIMARY) HYPERTENSION Qualifiers: Hypertension type: renovascular hypertension Qualified Code(s): I15.0 - Renovascular hypertension
--- NOTE | 2017-04-23 17:27 | PN ---
Progress Note, Physician History of Present Illness: S/P I&D R foot soft tissue abscess Foot wound c/s MRSA Pelvic bone bx / asp cultures no growth Bx c/w osteomyelitis No fever/ chills L nasal swelling resolved - Current Medication List Current Medications: Active Medications Acetaminophen (Tylenol -) 325 mg PO Q6H PRN PRN Reason: PAIN Last Admin: 04/23/17 12:29 Dose: 325 mg Acetaminophen (Tylenol -) 650 mg PO Q6H PRN PRN Reason: PAIN Last Admin: 04/23/17 04:09 Dose: 650 mg Albuterol/Ipratropium (Duoneb -) 1 amp NEB RTID [facility] Last Admin: 04/23/17 14:15 Dose: 1 amp Apixaban (Eliquis -) 5 mg PO Q12H [facility] Last Admin: 04/23/17 14:01 Dose: 5 mg Cinacalcet (Sensipar -) 60 mg PO DAILY [facility] Last Admin: 04/23/17 12:30 Dose: 60 mg Clonidine (Catapres -) 0.3 mg PO TID [facility] Last Admin: 04/23/17 13:30 Dose: 0.3 mg Gabapentin (Neurontin -) 200 mg PO TID [facility] Last Admin: 04/23/17 13:32 Dose: 200 mg Hydralazine HCl (Apresoline -) 75 mg PO TID [facility] Last Admin: 04/23/17 13:32 Dose: 75 mg Ibuprofen (Motrin -) 400 mg PO Q6H PRN PRN Reason: FEVER Last Admin: 04/19/17 01:37 Dose: 400 mg Insulin Aspart (Novolog Vial Sliding Scale -) 1 vial SQ ACHS [facility] PRN Reason: Protocol Last Admin: 04/23/17 17:08 Dose: 4 unit Insulin Detemir (Levemir Vial) 15 units SQ BID@0700,2200 [facility] Labetalol HCl (Normodyne -) 400 mg PO TID [facility] Last Admin: 04/23/17 13:32 Dose: 400 mg Lidocaine HCl (Xylocaine 2% Viscous Oral -) 20 ml MM TIDAC [facility] Last Admin: 04/23/17 17:09 Dose: Not Given Losartan Potassium (Cozaar -) 100 mg PO DAILY [facility] Last Admin: 04/23/17 11:34 Dose: 100 mg Nifedipine (Procardia Xl -) 30 mg PO DAILY [facility] Last Admin: 04/23/17 11:35 Dose: Not Given Oxycodone HCl (Roxicodone -) 10 mg PO Q6H PRN PRN Reason: PAIN LEVEL 7 - 10 Last Admin: 04/23/17 12:19 Dose: 10 mg Sevelamer Carbonate (Renvela -) 1,600 mg PO TIDCM [facility] Last Admin: 04/23/17 12:35 Dose: 1,600 mg Sodium Chloride ([place] Nasal [place] -) 2 spray NS BID PRN PRN Reason: NASAL CONGESTION Last Admin: 04/17/17 16:47 Dose: 2 sprays - Objective Vital Signs: Vital Signs Temperature 98.2 F 04/23/17 09:00 Pulse Rate 94 H 04/23/17 14:25 Respiratory Rate 18 04/23/17 12:15 Blood Pressure 181/93 04/23/17 14:25 O2 Sat by Pulse Oximetry (%) 97 04/22/17 21:00 Constitutional: Yes: No Distress Cardiovascular: Yes: Regular Rate and Rhythm, S1, S2 Respiratory: Yes: CTA Bilaterally Gastrointestinal: Yes: Normal Bowel Sounds, Soft. No: Tenderness Extremities: Yes: Other (dressing in place, foot) Edema: Yes Labs: CBC, BMP 04/23/17 09:38 04/23/17 08:10 INR, PTT INR 1.13 (0.82-1.09) 04/12/17 16:48 Assessment/Plan Nasal cellulitis resolved S/P I&D R plantar abscess pelvic osteomyelitis cultures no growth ESRD Vanco level theraputic Check random level am
[2017-04-23] MEDS ORDERED: NIFEdipine E.R. 30 MG TABLET (FP) PO STA (17:56)
[2017-04-23] MEDS ORDERED: diphenhydrAMINE HCL 25 MG CAPSULE (FP) PO ONE (22:00)
[2017-04-24] MEDS: APIXABAN 5 MG TABLET PO SCH ×2 (01:39→13:30)
[2017-04-24] MEDS: cloNIDine HCL 0.1 MG TABLET PO SCH ×3 (06:17→23:12)
[2017-04-24] MEDS: GABAPENTIN 100 MG CAPSULE (FP) PO SCH ×3 (06:17→23:12)
[2017-04-24] MEDS: hydrALAZINE HCL 50 MG TABLET (FP) PO SCH ×3 (06:17→23:11)
[2017-04-24] MEDS: LABETALOL HCL 200 MG TABLET (FP) PO SCH ×3 (06:17→23:11)
[2017-04-24] MEDS: INSULIN DETEMIR 100 UNITS/ML MDV SQ SCH ×2 (06:18→23:13)
[2017-04-24] MEDS: LIDOCAINE VISCOUS 2% ORAL/TOP 20 ML UNIT-DOSE CUP MM SCH ×3 (06:19→16:25)
[2017-04-24] MEDS: INSULIN SLIDING SCALE (NOVOLOG) 1 VIAL SQ SCH ×4 (06:19→23:14)
[2017-04-24] MEDS: oxyCODONE HCL 5 MG TABLET PO PRN ×2 (06:22→23:36)
[2017-04-24] MEDS: ACETAMINOPHEN 325 MG TABLET (FP) PO PRN (06:22)
[2017-04-24] MEDS ORDERED: INSULIN (NOVOLOG) ASPART 100 UNITS/ML 10ML VIAL ONE (07:05)
[2017-04-24] MEDS: ALBUTEROL SO4 2.5/IPRATROPIUM 0.5 INH SOL 3 ML VIAL.NEB. NEB SCH ×2 (07:15→20:00)
[2017-04-24 08:13] LABS: HEMATOCRIT 26.5 % (32.4-45.2); HEMOGLOBIN 8.4 GM/dL (10.7-15.3); MCH 27.3 pg (25.7-33.7); MCHC 31.9 g/dl (32.0-36.0); MEAN CELL VOLUME 85.7 fl (80-96); MEAN PLT VOLUME 8.7 fl (7.5-11.1); PLATELET COUNT 406 K/MM3 (134-434); RBC 3.09 M/mm3 (3.60-5.2); RDW 16.4 % (11.6-15.6); WHITE BLOOD COUNT 10.8 K/mm3 (4.0-10.0)
--- NOTE | 2017-04-24 08:15 | PN ---
Progress Note (short form) - Note Progress Note: Podiatry: Seen/evaluated at bedside, NAD. Denies F/V/N/C/SOB/CP. Afebrile, VSS. S/p R foot incision and drainage of abscess. CATRACHITA: R foot: dressing C/D/I, no active bleeding. Sutures coapted plantar arch, no dehiscence noted. Small area of post-surgical site packed open. No purulent drainage, no fluctuance, no periwound erythema, no soft tissue crepitus, no ascending cellulitis, no signs of active infection. WBC: 10.9 OR Cx: MRSA Imp: 26 year old DM F s/p R foot incision and drainage of abscess 1. IV abx per ID 2. Saline irrigation at bedside 3. Non-weightbearing R foot 4. Glycemic control 5. Will follow Delfino Dubon DPM
[2017-04-24 08:51] LABS: ALBUMIN 2.6 g/dl (3.4-5.0); ANION GAP 12 (8-16); BILIRUBIN,TOTAL 1.1 mg/dL (0.2-1.0); BLOOD UREA NITROGEN 42 mg/dL (7-18); CALCIUM 7.9 mg/dL (8.5-10.1); CHLORIDE 95 mmol/L (98-107); CO2 28 mmol/L (21-32); CREATININE 4.1 mg/dL (0.55-1.02); GLUCOSE,RANDOM 272 mg/dL (74-106); POTASSIUM 3.9 mmol/L (3.5-5.1); SGOT/AST 28 U/L (15-37); SGPT/ALT 29 U/L (12-78); SODIUM 135 mmol/L (136-145); TOT PROT 7.8 g/dl (6.4-8.2)
[2017-04-24 09:02] LABS: PHOSPHOROUS 5.3 mg/dL (2.5-4.9)
[2017-04-24 09:07] LABS: ALK PHOS 1648 U/L (45-117)
[2017-04-24] MEDS: SEVELAMER CARBONATE 800 MG TAB (FP) PO SCH ×3 (09:59→17:14)
[2017-04-24] MEDS: NIFEdipine E.R. 30 MG TABLET (FP) PO SCH (09:59)
[2017-04-24] MEDS: LOSARTAN POTASSIUM 50 MG TABLET (FP) PO SCH (09:59)
[2017-04-24] MEDS: CINACALCET HCL 30 MG TAB (FP) PO SCH ×2 (10:00→10:07)
[2017-04-24] MEDS ORDERED: VANCOMYCIN 1,000 MG in DEXTROSE 5%-WATER - 250 ML IVPB ONE (10:00)
--- NOTE | 2017-04-24 13:58 | PN ---
Progress Note (short form) - Note Progress Note: Breathing feels OK. No acute events overnight. Intake & Output 04/21/17 04/22/17 04/23/17 04/24/17 23:59 23:59 23:59 23:59 Intake Total 480 600 750 500 Output Total 25 Balance 455 600 750 500 Weight 149 lb 3.2 oz Last Vital Signs Temp Pulse Resp BP Pulse Ox 97.9 F 84 18 133/74 98 04/24/17 06:55 04/24/17 09:35 04/24/17 09:35 04/24/17 09:35 04/24/17 08:47 Active Medications Acetaminophen (Tylenol -) 325 mg PO Q6H PRN PRN Reason: PAIN Last Admin: 04/23/17 12:29 Dose: 325 mg Acetaminophen (Tylenol -) 650 mg PO Q6H PRN PRN Reason: PAIN Last Admin: 04/24/17 06:22 Dose: 650 mg Albuterol/Ipratropium (Duoneb -) 1 amp NEB RTID [facility] Last Admin: 04/24/17 07:15 Dose: 1 amp Apixaban (Eliquis -) 5 mg PO Q12H [facility] Last Admin: 04/24/17 13:30 Dose: 5 mg Cinacalcet (Sensipar -) 60 mg PO DAILY [facility] Last Admin: 04/24/17 10:07 Dose: Not Given Clonidine (Catapres -) 0.3 mg PO TID [facility] Last Admin: 04/24/17 13:30 Dose: 0.3 mg Gabapentin (Neurontin -) 200 mg PO TID [facility] Last Admin: 04/24/17 13:30 Dose: 200 mg Hydralazine HCl (Apresoline -) 75 mg PO TID [facility] Last Admin: 04/24/17 13:31 Dose: 75 mg Ibuprofen (Motrin -) 400 mg PO Q6H PRN PRN Reason: FEVER Last Admin: 04/19/17 01:37 Dose: 400 mg Insulin Aspart (Novolog Vial Sliding Scale -) 1 vial SQ ACHS [facility] PRN Reason: Protocol Last Admin: 04/24/17 11:54 Dose: 8 unit Insulin Detemir (Levemir Vial) 15 units SQ BID@0700,2200 [facility] Last Admin: 04/24/17 06:18 Dose: 15 units Labetalol HCl (Normodyne -) 400 mg PO TID [facility] Last Admin: 04/24/17 13:30 Dose: 400 mg Lidocaine HCl (Xylocaine 2% Viscous Oral -) 20 ml MM TIDAC [facility] Last Admin: 04/24/17 12:04 Dose: Not Given Losartan Potassium (Cozaar -) 100 mg PO DAILY [facility] Last Admin: 04/24/17 09:59 Dose: 100 mg Nifedipine (Procardia Xl -) 30 mg PO DAILY [facility] Last Admin: 04/24/17 09:59 Dose: Not Given Oxycodone HCl (Roxicodone -) 10 mg PO Q6H PRN PRN Reason: PAIN LEVEL 7 - 10 Last Admin: 04/24/17 06:22 Dose: 10 mg Sevelamer Carbonate (Renvela -) 1,600 mg PO TIDCM [facility] Last Admin: 04/24/17 11:55 Dose: 1,600 mg Sodium Chloride ([place] Nasal [place] -) 2 spray NS BID PRN PRN Reason: NASAL CONGESTION Last Admin: 04/17/17 16:47 Dose: 2 sprays Constitutional: Yes: Awake and alert, NAD Eyes: Yes: Conjunctiva Clear HENT: Yes: (-) Icterus Cardiovascular: Yes: Regular Rate and Rhythm, S1, S2 Respiratory: Yes: Few basilar rhonchi. No: Stridor, Wheezes Gastrointestinal: Yes: Normal Bowel Sounds, Soft. No: Tenderness Edema: Yes Lab Laboratory Results - last 24 hr 04/23/17 04/23/17 04/24/17 16:39 20:59 06:15 WBC RBC Hgb Hct MCV MCH MCHC RDW Plt Count MPV PTT (Actin FS) Sodium Potassium Chloride Carbon Dioxide Anion Gap BUN Creatinine Creat Clearance w eGFR POC Glucometer 232 284 320 Random Glucose Calcium Phosphorus Total Bilirubin AST ALT Alkaline Phosphatase Total Protein Albumin Random Vancomycin 04/24/17 04/24/17 04/24/17 07:00 07:00 07:00 WBC RBC Hgb Hct MCV MCH MCHC RDW Plt Count MPV PTT (Actin FS) Sodium 135 L Cancelled Potassium 3.9 Cancelled Chloride 95 L Cancelled Carbon Dioxide 28 Cancelled Anion Gap 12 Cancelled BUN 42 H Cancelled Creatinine 4.1 H Cancelled Creat Clearance w eGFR 13.05 POC Glucometer Random Glucose 272 H Cancelled Calcium 7.9 L Cancelled Phosphorus 5.3 H Cancelled Total Bilirubin 1.1 H D AST 28 ALT 29 Alkaline Phosphatase 1648 H Total Protein 7.8 Albumin 2.6 L Random Vancomycin 14.654 04/24/17 04/24/17 04/24/17 07:45 07:45 11:53 WBC 10.8 H RBC 3.09 L Hgb 8.4 L Hct 26.5 L MCV 85.7 MCH 27.3 MCHC 31.9 L RDW 16.4 H Plt Count 406 MPV 8.7 PTT (Actin FS) 36.8 H Sodium Potassium Chloride Carbon Dioxide Anion Gap BUN Creatinine Creat Clearance w eGFR POC Glucometer 328 Random Glucose Calcium Phosphorus Total Bilirubin AST ALT Alkaline Phosphatase Total Protein Albumin Random Vancomycin Problem List - Problems (1) Shortness of breath Code(s): R06.02 - SHORTNESS OF BREATH (2) Weakness Code(s): R53.1 - WEAKNESS (3) DKA, type 1 Code(s): E10.10 - TYPE 1 DIABETES MELLITUS WITH KETOACIDOSIS WITHOUT COMA (4) Diabetic foot infection Code(s): E11.69 - TYPE 2 DIABETES MELLITUS WITH OTHER SPECIFIED COMPLICATION; L08.9 - LOCAL INFECTION OF THE SKIN AND SUBCUTANEOUS TISSUE, UNSP (5) Fluid overload Code(s): E87.70 - FLUID OVERLOAD, UNSPECIFIED Qualifiers: Hypervolemia type: unspecified Qualified Code(s): E87.70 - Fluid overload, unspecified (6) History of pulmonary embolus (PE) Code(s): Z86.711 - PERSONAL HISTORY OF PULMONARY EMBOLISM (7) Leg pain, right Code(s): M79.604 - PAIN IN RIGHT LEG (8) Myositis Code(s): M60.9 - MYOSITIS, UNSPECIFIED (9) Osteomyelitis Code(s): M86.9 - OSTEOMYELITIS, UNSPECIFIED Qualifiers: Osteomyelitis location: foot Laterality: right Qualified Code(s): M86.171 - Other acute osteomyelitis, right ankle and foot (10) Oxygen dependent Code(s): Z99.81 - DEPENDENCE ON SUPPLEMENTAL OXYGEN (11) Pulmonary HTN Code(s): I27.20 - PULMONARY HYPERTENSION, UNSPECIFIED (12) Swelling of right lower extremity Code(s): M79.89 - OTHER SPECIFIED SOFT TISSUE DISORDERS (13) ESRD (end stage renal disease) on dialysis Code(s): N18.6 - END STAGE RENAL DISEASE; Z99.2 - DEPENDENCE ON RENAL DIALYSIS (14) HTN (hypertension) Code(s): I10 - ESSENTIAL (PRIMARY) HYPERTENSION Qualifiers: Hypertension type: renovascular hypertension Qualified Code(s): I15.0 - Renovascular hypertension IMP ESRD ON HD FLUID OVERLOAD HYPOXEMIA PULMONARY HTN 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
--- NOTE | 2017-04-24 20:31 | PN ---
Progress Note (short form) - Note Progress Note: Subjective: The patient was seen at the bedside, she reports feeling good today Current Medications Generic Name Dose Route Start Last Admin Trade Name Freq PRN Reason Stop Dose Admin Acetaminophen 325 mg 04/12/17 22:29 04/23/17 12:29 Tylenol - PO 325 mg Q6H PRN Administration PAIN Acetaminophen 650 mg 04/13/17 09:42 04/24/17 06:22 Tylenol - PO 650 mg Q6H PRN Administration PAIN Albuterol/Ipratropium 1 amp 04/18/17 09:17 04/24/17 07:15 Duoneb - NEB 1 amp RTID [facility] Administration Apixaban 5 mg 04/23/17 13:30 04/24/17 13:30 Eliquis - PO 5 mg Q12H [facility] Administration Cinacalcet 60 mg 04/16/17 13:15 04/24/17 10:07 Sensipar - PO Not Given DAILY [facility] Clonidine 0.3 mg 04/12/17 22:30 04/24/17 13:30 Catapres - PO 0.3 mg TID [facility] Administration Gabapentin 200 mg 04/12/17 22:30 04/24/17 13:30 Neurontin - PO 200 mg TID [facility] Administration Hydralazine HCl 75 mg 04/17/17 22:00 04/24/17 13:31 Apresoline - PO 75 mg TID [facility] Administration Ibuprofen 400 mg 04/17/17 11:56 04/19/17 01:37 Motrin - PO 400 mg Q6H PRN Administration FEVER Insulin Aspart 1 vial 04/23/17 10:45 04/24/17 17:13 Novolog Vial Sliding Scale - SQ 10 unit ACHS [facility] Administration Protocol Insulin Detemir 16 units 04/24/17 22:00 Levemir Vial SQ BID@0700,2200 [facility] Labetalol HCl 400 mg 04/12/17 22:30 04/24/17 13:30 Normodyne - PO 400 mg TID [facility] Administration Lidocaine HCl 20 ml 04/14/17 17:30 04/24/17 16:25 Xylocaine 2% Viscous Oral - MM Not Given TIDAC [facility] Losartan Potassium 100 mg 04/16/17 10:42 04/24/17 09:59 Cozaar - PO 100 mg DAILY [facility] Administration Nifedipine 30 mg 04/15/17 16:00 04/24/17 09:59 Procardia Xl - PO Not Given DAILY [facility] Oxycodone HCl 10 mg 04/20/17 13:27 04/24/17 06:22 Roxicodone - PO 10 mg Q6H PRN Administration PAIN LEVEL 7 - 10 Sevelamer Carbonate 1,600 mg 04/12/17 22:30 04/24/17 17:14 Renvela - PO 1,600 mg TIDCM [facility] Administration Sodium Chloride 2 spray 04/17/17 09:10 04/17/17 16:47 [place] Nasal [place] - NS 2 sprays BID PRN Administration NASAL CONGESTION Objective: Vital Signs Period Temp Pulse Resp BP Sys/[place]mes Pulse Ox Last 24 Hr 97.5 F-98.2 F 81-93 16-18 122-174/66-98 98 Physical Exam: General: NAD, A&Ox3 Lungs: CTA bilaterally Heart: RRR, S1S2 Abd: Soft, non-tender, non-distended. Normoactive bowel sounds Ext: B/l lower extremity edema. LUE AV fistula CBCD WBC 10.8 K/mm3 (4.0-10.0) H 04/24/17 07:45 RBC 3.09 M/mm3 (3.60-5.2) L 04/24/17 07:45 Hgb 8.4 GM/dL (10.7-15.3) L 04/24/17 07:45 Hct 26.5 % (32.4-45.2) L 04/24/17 07:45 MCV 85.7 fl (80-96) 04/24/17 07:45 MCHC 31.9 g/dl (32.0-36.0) L 04/24/17 07:45 RDW 16.4 % (11.6-15.6) H 04/24/17 07:45 Plt Count 406 K/MM3 (134-434) 04/24/17 07:45 MPV 8.7 fl (7.5-11.1) 04/24/17 07:45 CMP Sodium 135 mmol/L (136-145) L 04/24/17 07:00 Potassium 3.9 mmol/L (3.5-5.1) 04/24/17 07:00 Chloride 95 mmol/L (98-107) L 04/24/17 07:00 Carbon Dioxide 28 mmol/L (21-32) 04/24/17 07:00 Anion Gap 12 (8-16) 04/24/17 07:00 BUN 42 mg/dL (7-18) H 04/24/17 07:00 Creatinine 4.1 mg/dL (0.55-1.02) H 04/24/17 07:00 Creat Clearance w eGFR 13.05 (>60) 04/24/17 07:00 Random Glucose 272 mg/dL (74-106) H 04/24/17 07:00 Calcium 7.9 mg/dL (8.5-10.1) L 04/24/17 07:00 Total Bilirubin 1.1 mg/dL (0.2-1.0) H D 04/24/17 07:00 AST 28 U/L (15-37) 04/24/17 07:00 ALT 29 U/L (12-78) 04/24/17 07:00 Alkaline Phosphatase 1648 U/L (45-117) H 04/24/17 07:00 Total Protein 7.8 g/dl (6.4-8.2) 04/24/17 07:00 Albumin 2.6 g/dl (3.4-5.0) L 04/24/17 07:00 CARDIAC ENZYMES Creatine Kinase 145 IU/L (26-192) 04/12/17 16:48 Troponin I < 0.02 ng/ml (0.00-0.05) 04/12/17 16:48 Microbiology 04/20/17 14:46 Bone AFB Smear Concentration - Final 04/20/17 14:46 Bone Mycobacterial Culture - Preliminary 04/20/17 14:47 Body Fluid - Other AFB Smear Concentration - Final 04/20/17 14:47 Body Fluid - Other Mycobacterial Culture - Preliminary 04/21/17 10:00 Abscess Gram Stain - Final 04/21/17 10:00 Abscess Wound Culture - Final S Aureus 04/21/17 10:00 Abscess Gram Stain - Final 04/21/17 10:00 Abscess Wound Culture - Final 04/20/17 11:50 Aspirate Gram Stain - Final 04/20/17 11:50 Aspirate Body Fluid Culture - Final NO GROWTH OF AEROBIC ORGANISMS AFTER 48 HOURS INCUBATION 04/20/17 11:50 Aspirate Anaerobic Culture - Final NO ANAEROBES WERE ISOLATED 04/20/17 12:00 Bone Gram Stain - Final 04/20/17 12:00 Bone Tissue Culture - Final NO GROWTH OF AEROBIC ORGANISMS AFTER 48 HOURS INCUBATION 04/20/17 12:00 Bone Anaerobic Culture - Final NO ANAEROBES WERE ISOLATED 04/20/17 14:48 Body Fluid - Other LUISA Preparation - Preliminary 04/20/17 14:48 Body Fluid - Other Fungal Culture - Preliminary 04/20/17 14:47 Bone LUISA Preparation - Preliminary 04/20/17 14:47 Bone Fungal Culture - Preliminary 04/15/17 06:30 Stool Salmonella/Shigella Culture - Final 04/15/17 06:30 Stool Campylobacter Culture - Final NO GROWTH OF CAMPYLOBACTER SPECIES OBTAINED 04/15/17 06:30 Stool Yersinia Culture - Final NO GROWTH OF YERSINIA SPECIES OBTAINED 04/15/17 06:30 Stool Vibrio Culture - Final NO GROWTH OF VIBRIO SPECIES OBTAINED 04/15/17 06:30 Stool Escherichia coli 0157 Culture - Final NO GROWTH OF E COLI 0157 OBTAINED 04/13/17 14:45 Blood - Pre-Dialysis Blood Culture - Final NO GROWTH AFTER 5 DAYS INCUBATION 04/13/17 14:45 Blood - Pre-Dialysis Blood Culture - Final NO GROWTH AFTER 5 DAYS INCUBATION 04/15/17 06:30 Stool Clostridium difficile Antigen (SHI) - Final 04/15/17 06:30 Stool Clostridium difficile Toxin Assay - Final Assessment: This is a 26 year old female with PMHx of ESRD (M,W,F), HTN, IDDM, hx of DVT, recent PE (on coumadin), on home O2, anemia, who presented to the ED with headache, diarrhea, shortness of breath. Plan: 1) ESRD - HD M,W,F 2) Hypoxemia - Patient on home O2 - Pulmonary function testing (attempt to do as inpatient) - Pre/post O2 to assess home O2 needs - Appreciate pulmonary consult 2) Chronic/acute pubis osteomyelitis - Per CT and bone biopsy - Blood cultures with NGTD - Vanco per level 3) Right lower extremity fluid collection - Biopsy results from 04/20: No malignant cells. Scant proteinceous debris in hemorrhagic background with few neutrophils and rare lymphocytes present - Right muscle biopsy 08/26/2016: chronic and active necrotizing mypathy, severe - Left thigh biopsy 07/25/2015: Granulation and chronic inflammation involving epimysial/perifascial connective tissue and underlying skeletal muscle - Appreciate rheumatology consult 3) Facial cellulitis - Improving - Vancomycin, dose per level (therapeutic yesterday) - 04/19 CT sinus: (1) prominent soft tissue and fat stranding within the left nasal ala most compatible with cellulitis; (2) subcm hypodensity within the inferior left nasal ala favored to represent a focal phlegmon; no drainable abscess 4) Right plantar abscess - S/p I&D yesterday - Culture with presumptive MRSA - Vancomyin dose per level, check this AM 5) C.diff - Completed treatment 6) HTN - Goal BP <140/90 - Continue Losartan 100mg po daily - Continue Labetolol 400mg po tid - Continue Hydralazine 75mg po tid - Continue Clonidine 0.3mg po tid - Continue Nifedipine 30mg po daily (refused today) 7) Hx of DVT and recent PE - Eliquis 5mg po bid 8) IDDM - Increased Levemir to 16u sq bid - ISS ACHS - BGM ACHS 9) F/E/N: - Renal, diabetic diet - Monitor electrolytes 10) Prophylaxis: - Eliquis 5mg po bid 11) Dispo: - Requires continued inpatient care CODE STATUS: FULL CODE Visit type - Emergency Visit Emergency Visit: Yes ED Registration Date: 04/12/17 Care time: The patient presented to the Emergency Department on the above date and was hospitalized for further evaluation of their emergent condition. - New Patient This patient is new to me today: No - Critical Care Critical Care patient: No
--- NOTE | 2017-04-24 21:35 | PN ---
Progress Note (short form) - Note Progress Note: esrd on hd s/p fluid overload dm htn foot wound/ mrsa PID s/p HD extra treatment today Current Medications Acetaminophen (Tylenol -) 325 mg PO Q6H PRN PRN Reason: PAIN Last Admin: 04/23/17 12:29 Dose: 325 mg Acetaminophen (Tylenol -) 650 mg PO Q6H PRN PRN Reason: PAIN Last Admin: 04/24/17 06:22 Dose: 650 mg Albuterol/Ipratropium (Duoneb -) 1 amp NEB RTID [facility] Last Admin: 04/24/17 07:15 Dose: 1 amp Apixaban (Eliquis -) 5 mg PO Q12H [facility] Last Admin: 04/24/17 13:30 Dose: 5 mg Cinacalcet (Sensipar -) 60 mg PO DAILY [facility] Last Admin: 04/24/17 10:07 Dose: Not Given Clonidine (Catapres -) 0.3 mg PO TID [facility] Last Admin: 04/24/17 13:30 Dose: 0.3 mg Gabapentin (Neurontin -) 200 mg PO TID [facility] Last Admin: 04/24/17 13:30 Dose: 200 mg Hydralazine HCl (Apresoline -) 75 mg PO TID [facility] Last Admin: 04/24/17 13:31 Dose: 75 mg Ibuprofen (Motrin -) 400 mg PO Q6H PRN PRN Reason: FEVER Last Admin: 04/19/17 01:37 Dose: 400 mg Insulin Aspart (Novolog Vial Sliding Scale -) 1 vial SQ ACHS [facility] PRN Reason: Protocol Last Admin: 04/24/17 17:13 Dose: 10 unit Insulin Detemir (Levemir Vial) 16 units SQ BID@0700,2200 [facility] Labetalol HCl (Normodyne -) 400 mg PO TID [facility] Last Admin: 04/24/17 13:30 Dose: 400 mg Lidocaine HCl (Xylocaine 2% Viscous Oral -) 20 ml MM TIDAC [facility] Last Admin: 04/24/17 16:25 Dose: Not Given Losartan Potassium (Cozaar -) 100 mg PO DAILY [facility] Last Admin: 04/24/17 09:59 Dose: 100 mg Nifedipine (Procardia Xl -) 30 mg PO DAILY [facility] Last Admin: 04/24/17 09:59 Dose: Not Given Sevelamer Carbonate (Renvela -) 1,600 mg PO TIDCM [facility] Last Admin: 04/24/17 17:14 Dose: 1,600 mg Sodium Chloride ([place] Nasal [place] -) 2 spray NS BID PRN PRN Reason: NASAL CONGESTION Last Admin: 04/17/17 16:47 Dose: 2 sprays Last Vital Signs Temp Pulse Resp BP Pulse Ox 98 F 89 18 174/98 98 04/24/17 17:51 04/24/17 17:51 04/24/17 17:51 04/24/17 17:51 04/24/17 08:47 heent mild facial edema Neck no jvd Lungs dec bs Heart reg abd soft nontender IMP- s/p fluid overload Plan- next hd on wednesday
[2017-04-24] MEDS ORDERED: diphenhydrAMINE HCL 25 MG CAPSULE (FP) PO ONE (23:15)
[2017-04-25] MEDS: APIXABAN 5 MG TABLET PO SCH ×3 (01:24→22:45)
[2017-04-25] MEDS ORDERED: diphenhydrAMINE HCL 25 MG CAPSULE (FP) PO ONE (04:35)
[2017-04-25] MEDS: LABETALOL HCL 200 MG TABLET (FP) PO SCH ×3 (06:33→22:07)
[2017-04-25] MEDS: INSULIN DETEMIR 100 UNITS/ML MDV SQ SCH ×2 (06:33→21:59)
[2017-04-25] MEDS: cloNIDine HCL 0.1 MG TABLET PO SCH ×3 (06:34→22:06)
[2017-04-25] MEDS: hydrALAZINE HCL 50 MG TABLET (FP) PO SCH ×3 (06:35→22:06)
[2017-04-25] MEDS: GABAPENTIN 100 MG CAPSULE (FP) PO SCH ×3 (06:35→22:08)
[2017-04-25] MEDS: INSULIN SLIDING SCALE (NOVOLOG) 1 VIAL SQ SCH ×4 (06:36→21:59)
[2017-04-25] MEDS: LIDOCAINE VISCOUS 2% ORAL/TOP 20 ML UNIT-DOSE CUP MM SCH ×3 (06:38→18:25)
[2017-04-25 07:17] LABS: ANION GAP 13 (8-16); BLOOD UREA NITROGEN 52 mg/dL (7-18); CALCIUM 8.7 mg/dL (8.5-10.1); CHLORIDE 92 mmol/L (98-107); CO2 29 mmol/L (21-32); CREATININE 4.5 mg/dL (0.55-1.02); GLUCOSE,RANDOM 216 mg/dL (74-106); POTASSIUM 4.2 mmol/L (3.5-5.1); SODIUM 134 mmol/L (136-145)
[2017-04-25 07:37] LABS: HEMOGLOBIN 8.8 GM/dL (10.7-15.3); MCH 26.9 pg (25.7-33.7); MCHC 31.3 g/dl (32.0-36.0); MEAN PLT VOLUME 8.7 fl (7.5-11.1); PLATELET COUNT 459 K/MM3 (134-434); RBC 3.26 M/mm3 (3.60-5.2); RDW 16.6 % (11.6-15.6); WHITE BLOOD COUNT 10.5 K/mm3 (4.0-10.0)
[2017-04-25] MEDS: ALBUTEROL SO4 2.5/IPRATROPIUM 0.5 INH SOL 3 ML VIAL.NEB. NEB SCH ×3 (07:40→20:50)
[2017-04-25] MEDS ORDERED: PT OWN MED DRAWER 7, Y5N ONE (09:18)
[2017-04-25] MEDS: SEVELAMER CARBONATE 800 MG TAB (FP) PO SCH ×4 (09:22→18:58)
[2017-04-25] MEDS: NIFEdipine E.R. 30 MG TABLET (FP) PO SCH ×2 (09:24→09:37)
[2017-04-25] MEDS: LOSARTAN POTASSIUM 50 MG TABLET (FP) PO SCH (09:24)
[2017-04-25] MEDS: CINACALCET HCL 30 MG TAB (FP) PO SCH ×2 (09:30→09:38)
--- NOTE | 2017-04-25 11:18 | PN ---
Progress Note (short form) - Note Progress Note: Breathing feels OK. Overall appears better. No acute events overnight. Intake & Output 04/22/17 04/23/17 04/24/17 04/25/17 23:59 23:59 23:59 23:59 Intake Total 600 750 750 Balance 600 750 750 Weight 149 lb 3.2 oz 151 lb Last Vital Signs Temp Pulse Resp BP Pulse Ox 97.4 F L 86 20 156/95 98 04/25/17 09:34 04/25/17 09:34 04/25/17 09:34 04/25/17 09:34 04/24/17 21:00 Active Medications Acetaminophen (Tylenol -) 325 mg PO Q6H PRN PRN Reason: PAIN Last Admin: 04/23/17 12:29 Dose: 325 mg Acetaminophen (Tylenol -) 650 mg PO Q6H PRN PRN Reason: PAIN Last Admin: 04/24/17 06:22 Dose: 650 mg Albuterol/Ipratropium (Duoneb -) 1 amp NEB RTID [facility] Last Admin: 04/24/17 20:00 Dose: 1 amp Apixaban (Eliquis -) 5 mg PO BID [facility] Last Admin: 04/25/17 09:29 Dose: 5 mg Cinacalcet (Sensipar -) 60 mg PO DAILY [facility] Last Admin: 04/25/17 09:38 Dose: Not Given Clonidine (Catapres -) 0.3 mg PO TID [facility] Last Admin: 04/25/17 06:34 Dose: 0.3 mg Gabapentin (Neurontin -) 200 mg PO TID [facility] Last Admin: 04/25/17 06:35 Dose: 200 mg Hydralazine HCl (Apresoline -) 75 mg PO TID [facility] Last Admin: 04/25/17 06:35 Dose: 75 mg Ibuprofen (Motrin -) 400 mg PO Q6H PRN PRN Reason: FEVER Last Admin: 04/19/17 01:37 Dose: 400 mg Insulin Aspart (Novolog Vial Sliding Scale -) 1 vial SQ [facility] PRN Reason: Protocol Last Admin: 04/25/17 06:36 Dose: 4 unit Insulin Detemir (Levemir Vial) 16 units SQ BID@0700,2200 [facility] Last Admin: 04/25/17 06:33 Dose: 16 units Labetalol HCl (Normodyne -) 400 mg PO TID [facility] Last Admin: 04/25/17 06:33 Dose: 400 mg Lidocaine HCl (Xylocaine 2% Viscous Oral -) 20 ml MM TIDAC [facility] Last Admin: 04/25/17 06:38 Dose: Not Given Losartan Potassium (Cozaar -) 100 mg PO DAILY [facility] Last Admin: 04/25/17 09:24 Dose: 100 mg Nifedipine (Procardia Xl -) 30 mg PO DAILY [facility] Last Admin: 04/25/17 09:37 Dose: Not Given Oxycodone HCl (Roxicodone -) 10 mg PO Q6H PRN PRN Reason: PAIN LEVEL 7 - 10 Last Admin: 04/24/17 23:36 Dose: 10 mg Sevelamer Carbonate (Renvela -) 1,600 mg PO TIDCM [facility] Last Admin: 04/25/17 09:22 Dose: 1,600 mg Sodium Chloride ([place] Nasal [place] -) 2 spray NS BID PRN PRN Reason: NASAL CONGESTION Last Admin: 04/17/17 16:47 Dose: 2 sprays Constitutional: Yes: Awake and alert, NAD Eyes: Yes: Conjunctiva Clear HENT: Yes: (-) Icterus Cardiovascular: Yes: Regular Rate and Rhythm, S1, S2 Respiratory: Yes: Few basilar rhonchi. No: Stridor, Wheezes Gastrointestinal: Yes: Normal Bowel Sounds, Soft. No: Tenderness Edema: Yes Lab Laboratory Results - last 24 hr 04/24/17 04/24/17 04/24/17 11:53 16:27 22:30 WBC RBC Hgb Hct MCV MCH MCHC RDW Plt Count MPV PTT (Actin FS) Sodium Potassium Chloride Carbon Dioxide Anion Gap BUN Creatinine POC Glucometer 328 380 383 Random Glucose Calcium 04/25/17 04/25/17 04/25/17 05:30 05:30 05:30 WBC 10.5 H RBC 3.26 L Hgb 8.8 L Hct 28.0 L MCV 86.0 MCH 26.9 MCHC 31.3 L RDW 16.6 H Plt Count 459 H MPV 8.7 PTT (Actin FS) 34.5 H Sodium 134 L Potassium 4.2 Chloride 92 L Carbon Dioxide 29 Anion Gap 13 BUN 52 H Creatinine 4.5 H POC Glucometer Random Glucose 216 H Calcium 8.7 04/25/17 06:32 WBC RBC Hgb Hct MCV MCH MCHC RDW Plt Count MPV PTT (Actin FS) Sodium Potassium Chloride Carbon Dioxide Anion Gap BUN Creatinine POC Glucometer 233 Random Glucose Calcium Problem List - Problems (1) Shortness of breath Code(s): R06.02 - SHORTNESS OF BREATH (2) Weakness Code(s): R53.1 - WEAKNESS (3) DKA, type 1 Code(s): E10.10 - TYPE 1 DIABETES MELLITUS WITH KETOACIDOSIS WITHOUT COMA (4) Diabetic foot infection Code(s): E11.69 - TYPE 2 DIABETES MELLITUS WITH OTHER SPECIFIED COMPLICATION; L08.9 - LOCAL INFECTION OF THE SKIN AND SUBCUTANEOUS TISSUE, UNSP (5) Fluid overload Code(s): E87.70 - FLUID OVERLOAD, UNSPECIFIED Qualifiers: Hypervolemia type: unspecified Qualified Code(s): E87.70 - Fluid overload, unspecified (6) History of pulmonary embolus (PE) Code(s): Z86.711 - PERSONAL HISTORY OF PULMONARY EMBOLISM (7) Leg pain, right Code(s): M79.604 - PAIN IN RIGHT LEG (8) Myositis Code(s): M60.9 - MYOSITIS, UNSPECIFIED (9) Osteomyelitis Code(s): M86.9 - OSTEOMYELITIS, UNSPECIFIED Qualifiers: Osteomyelitis location: foot Laterality: right Qualified Code(s): M86.171 - Other acute osteomyelitis, right ankle and foot (10) Oxygen dependent Code(s): Z99.81 - DEPENDENCE ON SUPPLEMENTAL OXYGEN (11) Pulmonary HTN Code(s): I27.20 - PULMONARY HYPERTENSION, UNSPECIFIED (12) Swelling of right lower extremity Code(s): M79.89 - OTHER SPECIFIED SOFT TISSUE DISORDERS (13) ESRD (end stage renal disease) on dialysis Code(s): N18.6 - END STAGE RENAL DISEASE; Z99.2 - DEPENDENCE ON RENAL DIALYSIS (14) HTN (hypertension) Code(s): I10 - ESSENTIAL (PRIMARY) HYPERTENSION Qualifiers: Hypertension type: renovascular hypertension Qualified Code(s): I15.0 - Renovascular hypertension IMP ESRD ON HD FLUID OVERLOAD HYPOXEMIA PULMONARY HTN 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
[2017-04-25] MEDS: ACETAMINOPHEN 325 MG TABLET (FP) PO PRN (12:34)
[2017-04-25] MEDS: oxyCODONE HCL 5 MG TABLET PO PRN ×2 (12:35→22:14)
--- NOTE | 2017-04-25 13:39 | PN ---
Progress Note (short form) - Note Progress Note: Podiatry F/U: Seen/evaluated at bedside, NAD. Pain controlled, denies F/V/N/C/SOB/CP. Afebrile. S/p R foot incision and drainage of abscess. CATRACHITA: R foot: dressing C/D/I. Sutures well coapted plantar-lateral midfoot with central aspect of surgical site with mostly granular base, only serous drainage , no purulent drainage, no fluctuance, no probing to bone, no soft tissue crepitus, no ascending cellulitis, no signs of active infection. WBC: 10.5 OR Cx: MRSA Imp: 26 year old IDDM F s/p R foot incision and drainage of abscess 1. IV abx per ID 2. Saline irrigation and DSD R foot 3. Non-weightbearing right foot. Patient has elevator at home and will use walker to mitigate weightbearing. Recommend PT eval for training with walker. 4. Rx bactroban + DSD R foot. Will need home nursing services for local wound care. 5. Upon discharge will f/u with me in wound healing center, 04/27/17 if discharged. No further surgical intervention. Delfino Dubon DPM
--- NOTE | 2017-04-25 18:15 | PN ---
Progress Note (short form) - Note Progress Note: Subjective: The patient was seen at the bedside, she is eating a large sandwich. She states she does not want coverage before she eats "snacks". Current Medications Generic Name Dose Route Start Last Admin Trade Name Freq PRN Reason Stop Dose Admin Acetaminophen 325 mg 04/12/17 22:29 04/23/17 12:29 Tylenol - PO 325 mg Q6H PRN Administration PAIN Acetaminophen 650 mg 04/13/17 09:42 04/25/17 12:34 Tylenol - PO 650 mg Q6H PRN Administration PAIN Albuterol/Ipratropium 1 amp 04/18/17 09:17 04/24/17 20:00 Duoneb - NEB 1 amp RTID [facility] Administration Apixaban 5 mg 04/25/17 10:00 04/25/17 09:29 Eliquis - PO 5 mg BID [facility] Administration Cinacalcet 60 mg 04/16/17 13:15 04/25/17 09:38 Sensipar - PO Not Given DAILY [facility] Clonidine 0.3 mg 04/12/17 22:30 04/25/17 15:02 Catapres - PO 0.3 mg TID [facility] Administration Diphenhydramine HCl 25 mg 04/25/17 14:01 04/25/17 15:00 Benadryl Injection - IVPB 25 mg Q8H PRN Administration itching Gabapentin 200 mg 04/12/17 22:30 04/25/17 15:01 Neurontin - PO 200 mg TID [facility] Administration Hydralazine HCl 75 mg 04/17/17 22:00 04/25/17 15:01 Apresoline - PO 75 mg TID [facility] Administration Ibuprofen 400 mg 04/17/17 11:56 04/19/17 01:37 Motrin - PO 400 mg Q6H PRN Administration FEVER Insulin Aspart 1 vial 04/23/17 10:45 04/25/17 12:36 Novolog Vial Sliding Scale - SQ 4 unit ACHS [facility] Administration Protocol Insulin Detemir 16 units 04/24/17 22:00 04/25/17 06:33 Levemir Vial SQ 16 units BID@0700,2200 [facility] Administration Labetalol HCl 400 mg 04/12/17 22:30 04/25/17 15:06 Normodyne - PO 400 mg TID [facility] Administration Lidocaine HCl 20 ml 04/14/17 17:30 04/25/17 14:59 Xylocaine 2% Viscous Oral - MM Not Given TIDAC [facility] Losartan Potassium 100 mg 04/16/17 10:42 04/25/17 09:24 Cozaar - PO 100 mg DAILY [facility] Administration Nifedipine 30 mg 04/15/17 16:00 04/25/17 09:37 Procardia Xl - PO Not Given DAILY [facility] Oxycodone HCl 10 mg 04/24/17 23:06 04/25/17 12:35 Roxicodone - PO 10 mg Q6H PRN Administration PAIN LEVEL 7 - 10 Sevelamer Carbonate 1,600 mg 04/12/17 22:30 04/25/17 12:33 Renvela - PO 1,600 mg TIDCM [facility] Administration Sodium Chloride 2 spray 04/17/17 09:10 04/17/17 16:47 [place]al [place] - NS 2 sprays BID PRN Administration NASAL CONGESTION Objective: Vital Signs Period Temp Pulse Resp BP Sys/Ames Pulse Ox Last 24 Hr 97.4 F-98.4 F 86-92 20-20 151-183/94-102 98 Physical Exam: General: NAD, A&Ox3 Lungs: CTA bilaterally Heart: RRR, S1S2 Abd: Soft, non-tender, non-distended. Normoactive bowel sounds Ext: B/l lower extremity edema. LUE AV fistula. Dressing on R foot, c/d/i CBCD WBC 10.5 K/mm3 (4.0-10.0) H 04/25/17 05:30 RBC 3.26 M/mm3 (3.60-5.2) L 04/25/17 05:30 Hgb 8.8 GM/dL (10.7-15.3) L 04/25/17 05:30 Hct 28.0 % (32.4-45.2) L 04/25/17 05:30 MCV 86.0 fl (80-96) 04/25/17 05:30 MCHC 31.3 g/dl (32.0-36.0) L 04/25/17 05:30 RDW 16.6 % (11.6-15.6) H 04/25/17 05:30 Plt Count 459 K/MM3 (134-434) H 04/25/17 05:30 MPV 8.7 fl (7.5-11.1) 04/25/17 05:30 CMP Sodium 134 mmol/L (136-145) L 04/25/17 05:30 Potassium 4.2 mmol/L (3.5-5.1) 04/25/17 05:30 Chloride 92 mmol/L (98-107) L 04/25/17 05:30 Carbon Dioxide 29 mmol/L (21-32) 04/25/17 05:30 Anion Gap 13 (8-16) 04/25/17 05:30 BUN 52 mg/dL (7-18) H 04/25/17 05:30 Creatinine 4.5 mg/dL (0.55-1.02) H 04/25/17 05:30 Creat Clearance w eGFR 13.05 (>60) 04/24/17 07:00 Random Glucose 216 mg/dL (74-106) H 04/25/17 05:30 Calcium 8.7 mg/dL (8.5-10.1) 04/25/17 05:30 Total Bilirubin 1.1 mg/dL (0.2-1.0) H D 04/24/17 07:00 AST 28 U/L (15-37) 04/24/17 07:00 ALT 29 U/L (12-78) 04/24/17 07:00 Alkaline Phosphatase 1648 U/L (45-117) H 04/24/17 07:00 Total Protein 7.8 g/dl (6.4-8.2) 04/24/17 07:00 Albumin 2.6 g/dl (3.4-5.0) L 04/24/17 07:00 CARDIAC ENZYMES Creatine Kinase 145 IU/L (26-192) 04/12/17 16:48 Troponin I < 0.02 ng/ml (0.00-0.05) 04/12/17 16:48 Microbiology 04/20/17 14:46 Bone AFB Smear Concentration - Final 04/20/17 14:46 Bone Mycobacterial Culture - Preliminary 04/20/17 14:47 Body Fluid - Other AFB Smear Concentration - Final 04/20/17 14:47 Body Fluid - Other Mycobacterial Culture - Preliminary 04/21/17 10:00 Abscess Gram Stain - Final 04/21/17 10:00 Abscess Wound Culture - Final Mr S Aureus 04/21/17 10:00 Abscess Gram Stain - Final 04/21/17 10:00 Abscess Wound Culture - Final 04/20/17 11:50 Aspirate Gram Stain - Final 04/20/17 11:50 Aspirate Body Fluid Culture - Final NO GROWTH OF AEROBIC ORGANISMS AFTER 48 HOURS INCUBATION 04/20/17 11:50 Aspirate Anaerobic Culture - Final NO ANAEROBES WERE ISOLATED 04/20/17 12:00 Bone Gram Stain - Final 04/20/17 12:00 Bone Tissue Culture - Final NO GROWTH OF AEROBIC ORGANISMS AFTER 48 HOURS INCUBATION 04/20/17 12:00 Bone Anaerobic Culture - Final NO ANAEROBES WERE ISOLATED 04/20/17 14:48 Body Fluid - Other LUISA Preparation - Preliminary 04/20/17 14:48 Body Fluid - Other Fungal Culture - Preliminary 04/20/17 14:47 Bone LUISA Preparation - Preliminary 04/20/17 14:47 Bone Fungal Culture - Preliminary 04/15/17 06:30 Stool Salmonella/Shigella Culture - Final 04/15/17 06:30 Stool Campylobacter Culture - Final NO GROWTH OF CAMPYLOBACTER SPECIES OBTAINED 04/15/17 06:30 Stool Yersinia Culture - Final NO GROWTH OF YERSINIA SPECIES OBTAINED 04/15/17 06:30 Stool Vibrio Culture - Final NO GROWTH OF VIBRIO SPECIES OBTAINED 04/15/17 06:30 Stool Escherichia coli 0157 Culture - Final NO GROWTH OF E COLI 0157 OBTAINED 04/13/17 14:45 Blood - Pre-Dialysis Blood Culture - Final NO GROWTH AFTER 5 DAYS INCUBATION 04/13/17 14:45 Blood - Pre-Dialysis Blood Culture - Final NO GROWTH AFTER 5 DAYS INCUBATION 04/15/17 06:30 Stool Clostridium difficile Antigen (SHI) - Final 04/15/17 06:30 Stool Clostridium difficile Toxin Assay - Final Assessment: This is a 26 year old female with PMHx of ESRD (M,W,F), HTN, IDDM, hx of DVT, recent PE (on eliquis), on home O2, anemia, who presented to the ED with headache, diarrhea, shortness of breath. Plan: 1) ESRD - HD M,W,F 2) Hypoxemia - Patient on home O2 - Pulmonary function testing (attempt to do as inpatient) - Pre/post O2 to assess home O2 needs (patient has been refusing) - Appreciate pulmonary consult 2) Chronic/acute pubis osteomyelitis - Per CT and bone biopsy - Blood cultures with NGTD - Vanco per level 3) Right lower extremity fluid collection - Biopsy results from 04/20: No malignant cells. Scant proteinceous debris in hemorrhagic background with few neutrophils and rare lymphocytes present - Right muscle biopsy 08/26/2016: chronic and active necrotizing mypathy, severe - Left thigh biopsy 07/25/2015: Granulation and chronic inflammation involving epimysial/perifascial connective tissue and underlying skeletal muscle - Appreciate rheumatology consult 3) Facial cellulitis - Improving - Vancomycin, dose per level (therapeutic yesterday) - 04/19 CT sinus: (1) prominent soft tissue and fat stranding within the left nasal ala most compatible with cellulitis; (2) subcm hypodensity within the inferior left nasal ala favored to represent a focal phlegmon; no drainable abscess 4) Right plantar abscess - S/p I&D 04/21 - Culture with presumptive MRSA - Vancomyin dose per level, given Vancomycin 1g on 04/24 5) C.diff - Completed treatment 6) HTN - Goal BP <140/90 - Continue Losartan 100mg po daily - Continue Labetolol 400mg po tid - Continue Hydralazine 75mg po tid - Continue Clonidine 0.3mg po tid - Continue Nifedipine 30mg po daily (refused today) 7) Hx of DVT and recent PE - Eliquis 5mg po bid 8) IDDM - Increased Levemir to 16u sq bid - ISS ACHS - BGM ACHS 9) F/E/N: - Renal, diabetic diet - Monitor electrolytes 10) Prophylaxis: - Eliquis 5mg po bid 11) Dispo: - Requires continued inpatient care CODE STATUS: FULL CODE Visit type - Emergency Visit Emergency Visit: Yes ED Registration Date: 04/12/17 Care time: The patient presented to the Emergency Department on the above date and was hospitalized for further evaluation of their emergent condition. - New Patient This patient is new to me today: No - Critical Care Critical Care patient: No
--- NOTE | 2017-04-25 19:34 | PN ---
Progress Note (short form) - Note Progress Note: esrd on hd s/p fluid overload dm htn foot wound/ mrsa PID s/p HD extra treatment today Current Medications Acetaminophen (Tylenol -) 325 mg PO Q6H PRN PRN Reason: PAIN Last Admin: 04/23/17 12:29 Dose: 325 mg Acetaminophen (Tylenol -) 650 mg PO Q6H PRN PRN Reason: PAIN Last Admin: 04/25/17 12:34 Dose: 650 mg Albuterol/Ipratropium (Duoneb -) 1 amp NEB RTID [facility] Last Admin: 04/24/17 20:00 Dose: 1 amp Apixaban (Eliquis -) 5 mg PO BID [facility] Last Admin: 04/25/17 09:29 Dose: 5 mg Cinacalcet (Sensipar -) 60 mg PO DAILY [facility] Last Admin: 04/25/17 09:38 Dose: Not Given Clonidine (Catapres -) 0.3 mg PO TID [facility] Last Admin: 04/25/17 15:02 Dose: 0.3 mg Diphenhydramine HCl (Benadryl Injection -) 25 mg IVPB Q8H PRN PRN Reason: itching Last Admin: 04/25/17 15:00 Dose: 25 mg Gabapentin (Neurontin -) 200 mg PO TID [facility] Last Admin: 04/25/17 15:01 Dose: 200 mg Hydralazine HCl (Apresoline -) 75 mg PO TID [facility] Last Admin: 04/25/17 15:01 Dose: 75 mg Ibuprofen (Motrin -) 400 mg PO Q6H PRN PRN Reason: FEVER Last Admin: 04/19/17 01:37 Dose: 400 mg Insulin Aspart (Novolog Vial Sliding Scale -) 1 vial SQ ACHS [facility] PRN Reason: Protocol Last Admin: 04/25/17 18:18 Dose: Not Given Insulin Detemir (Levemir Vial) 16 units SQ BID@0700,2200 [facility] Last Admin: 04/25/17 06:33 Dose: 16 units Labetalol HCl (Normodyne -) 400 mg PO TID [facility] Last Admin: 04/25/17 15:06 Dose: 400 mg Lidocaine HCl (Xylocaine 2% Viscous Oral -) 20 ml MM TIDAC [facility] Last Admin: 04/25/17 18:25 Dose: Not Given Losartan Potassium (Cozaar -) 100 mg PO DAILY [facility] Last Admin: 04/25/17 09:24 Dose: 100 mg Nifedipine (Procardia Xl -) 30 mg PO DAILY [facility] Last Admin: 04/25/17 09:37 Dose: Not Given Oxycodone HCl (Roxicodone -) 10 mg PO Q6H PRN PRN Reason: PAIN LEVEL 7 - 10 Last Admin: 04/25/17 12:35 Dose: 10 mg Sevelamer Carbonate (Renvela -) 1,600 mg PO TIDCM [facility] Last Admin: 04/25/17 18:58 Dose: Not Given Sodium Chloride ([place] Nasal [place] -) 2 spray NS BID PRN PRN Reason: NASAL CONGESTION Last Admin: 04/17/17 16:47 Dose: 2 sprays Last Vital Signs Temp Pulse Resp BP Pulse Ox 98.1 F 85 20 173/109 98 04/25/17 18:00 04/25/17 18:00 04/25/17 18:00 04/25/17 18:00 04/24/17 21:00 heent mild facial edema Neck no jvd Lungs dec bs Heart reg abd soft nontender CBC, BMP 04/25/17 05:30 04/25/17 05:30 IMP- s/p fluid overload s/p extra dialysis treatment for fluid removal mrsa wound Plan- next hd on wednesday
[2017-04-26] MEDS: oxyCODONE HCL 5 MG TABLET PO PRN ×3 (04:54→22:49)
[2017-04-26] MEDS: ACETAMINOPHEN 325 MG TABLET (FP) PO PRN ×2 (04:56→23:00)
[2017-04-26] MEDS: LABETALOL HCL 200 MG TABLET (FP) PO SCH ×3 (05:24→22:48)
[2017-04-26] MEDS: GABAPENTIN 100 MG CAPSULE (FP) PO SCH ×3 (05:24→22:48)
[2017-04-26] MEDS: cloNIDine HCL 0.1 MG TABLET PO SCH ×3 (05:25→22:48)
[2017-04-26] MEDS: hydrALAZINE HCL 50 MG TABLET (FP) PO SCH ×3 (05:25→22:47)
[2017-04-26] MEDS: INSULIN DETEMIR 100 UNITS/ML MDV SQ SCH ×2 (06:24→22:47)
[2017-04-26] MEDS: INSULIN SLIDING SCALE (NOVOLOG) 1 VIAL SQ SCH ×4 (06:25→22:46)
[2017-04-26] MEDS: LIDOCAINE VISCOUS 2% ORAL/TOP 20 ML UNIT-DOSE CUP MM SCH ×3 (06:55→17:47)
[2017-04-26] MEDS: ALBUTEROL SO4 2.5/IPRATROPIUM 0.5 INH SOL 3 ML VIAL.NEB. NEB SCH ×3 (07:25→20:59)
[2017-04-26] MEDS: SEVELAMER CARBONATE 800 MG TAB (FP) PO SCH ×3 (08:29→17:13)
[2017-04-26] MEDS ORDERED: EPOETIN ALFA 10,000 UNIT/1 ML VIAL IVPUSH ONE ×2 (09:00→12:00)
[2017-04-26 09:51] LABS: BASO % 1.4 % (0-2.0); EOS % 2.6 % (0-4.5); HEMATOCRIT 26.3 % (32.4-45.2); HEMOGLOBIN 8.2 GM/dL (10.7-15.3); LYMPH % 11.1 % (8-40); MCH 26.9 pg (25.7-33.7); MCHC 31.1 g/dl (32.0-36.0); MEAN CELL VOLUME 86.7 fl (80-96); MEAN PLT VOLUME 8.5 fl (7.5-11.1); MONO % 8.5 % (3.8-10.2); NEUT % 76.4 % (42.8-82.8); PLATELET COUNT 458 K/MM3 (134-434); RBC 3.03 M/mm3 (3.60-5.2); RDW 16.3 % (11.6-15.6); WHITE BLOOD COUNT 12.3 K/mm3 (4.0-10.0)
[2017-04-26] MEDS: LOSARTAN POTASSIUM 50 MG TABLET (FP) PO SCH ×2 (10:06→13:51)
[2017-04-26] MEDS: NIFEdipine E.R. 30 MG TABLET (FP) PO SCH ×2 (10:06→13:51)
[2017-04-26] MEDS: APIXABAN 5 MG TABLET PO SCH ×2 (10:07→22:47)
[2017-04-26] MEDS: CINACALCET HCL 30 MG TAB (FP) PO SCH (10:07)
[2017-04-26 10:13] LABS: ALBUMIN 2.8 g/dl (3.4-5.0); ANION GAP 13 (8-16); BLOOD UREA NITROGEN 87 mg/dL (7-18); CALCIUM 8.3 mg/dL (8.5-10.1); CHLORIDE 95 mmol/L (98-107); CO2 23 mmol/L (21-32); GLUCOSE,RANDOM 294 mg/dL (74-106); POTASSIUM 4.7 mmol/L (3.5-5.1); SODIUM 131 mmol/L (136-145)
[2017-04-26 10:31] LABS: BILIRUBIN,TOTAL 1.1 mg/dL (0.2-1.0); CREATININE 6.3 mg/dL (0.55-1.02); PHOSPHOROUS 5.9 mg/dL (2.5-4.9); SGOT/AST 82 U/L (15-37); SGPT/ALT 61 U/L (12-78); TOT PROT 8.3 g/dl (6.4-8.2)
[2017-04-26 10:32] LABS: ALK PHOS 2009 U/L (45-117)
[2017-04-26] MEDS ORDERED: PT OWN MED DRAWER 7, Y5N ONE ×5 (13:55→22:33)
[2017-04-26] MEDS ORDERED: VANCOMYCIN 1,000 MG in DEXTROSE 5%-WATER - 250 ML IVPB ONE (15:19)
[2017-04-26] MEDS ORDERED: diphenhydrAMINE HCL 50 MG CAPSULE PO PRN (17:16)
[2017-04-26] MEDS: diphenhydrAMINE HCL 25 MG CAPSULE (FP) PO PRN ×2 (17:47→23:37)
--- NOTE | 2017-04-26 19:04 | PN ---
Physical Exam: SUBJECTIVE: Patient seen and examined, denies chest pain, denies shortness of breath. OBJECTIVE: s/p dialysis today Vital Signs Period Temp Pulse Resp BP Sys/Ames Pulse Ox Last 24 Hr 97.6 F-98.4 F 80-99 18-20 121-199/78-113 98-98 GENERAL: The patient is awake, alert, and fully oriented, in no acute distress. HEAD: Normal with no signs of trauma. EYES: PERRL, extraocular movements intact, sclera anicteric, conjunctiva clear. No ptosis. ENT: Ears normal, nares patent, oropharynx clear without exudates, moist mucous membranes. NECK: Trachea midline, full range of motion, supple. LUNGS: Breath sounds equal, clear to auscultation bilaterally, no wheezes, no crackles, no accessory muscle use. HEART: Regular rate and rhythm, S1, S2 without murmur, rub or gallop. ABDOMEN: Soft, nontender, nondistended, normoactive bowel sounds, no guarding, no rebound, no hepatosplenomegaly, no masses. Laboratory Results - last 24 hr 04/25/17 04/26/17 04/26/17 21:52 05:47 09:15 WBC 12.3 H RBC 3.03 L Hgb 8.2 L Hct 26.3 L MCV 86.7 MCH 26.9 MCHC 31.1 L RDW 16.3 H Plt Count 458 H MPV 8.5 Neutrophils % 76.4 Lymphocytes % 11.1 D Monocytes % 8.5 Eosinophils % 2.6 Basophils % 1.4 Sodium Potassium Chloride Carbon Dioxide Anion Gap BUN Creatinine Creat Clearance w eGFR POC Glucometer 488 247 Random Glucose Calcium Phosphorus Magnesium Total Bilirubin AST ALT Alkaline Phosphatase Total Protein Albumin 04/26/17 04/26/17 09:15 16:43 WBC RBC Hgb Hct MCV MCH MCHC RDW Plt Count MPV Neutrophils % Lymphocytes % Monocytes % Eosinophils % Basophils % Sodium 131 L Potassium 4.7 Chloride 95 L Carbon Dioxide 23 Anion Gap 13 BUN 87 H D Creatinine 6.3 H Creat Clearance w eGFR 7.95 POC Glucometer 350 Random Glucose 294 H Calcium 8.3 L Phosphorus 5.9 H Magnesium 2.0 Total Bilirubin 1.1 H AST 82 H ALT 61 Alkaline Phosphatase 2009 H Total Protein 8.3 H Albumin 2.8 L Active Medications Generic Name Dose Route Start Last Admin Trade Name Jase PRN Reason Stop Dose Admin Acetaminophen 325 mg 04/12/17 22:29 04/23/17 12:29 Tylenol - PO 325 mg Q6H PRN Administration PAIN Acetaminophen 650 mg 04/13/17 09:42 04/26/17 04:56 Tylenol - PO 650 mg Q6H PRN Administration PAIN Albuterol/Ipratropium 1 amp 04/18/17 09:17 04/26/17 13:25 Duoneb - NEB Not Given RTID [facility] Apixaban 5 mg 04/25/17 10:00 04/26/17 10:07 Eliquis - PO Not Given BID [facility] Cinacalcet 60 mg 04/16/17 13:15 04/26/17 10:07 Sensipar - PO Not Given DAILY [facility] Clonidine 0.3 mg 04/12/17 22:30 04/26/17 13:50 Catapres - PO 0.3 mg TID [facility] Administration Diphenhydramine HCl 25 mg 04/25/17 14:01 04/26/17 14:01 Benadryl Injection - IVPB 25 mg Q8H PRN Administration itching Diphenhydramine HCl 50 mg 04/26/17 17:32 04/26/17 17:47 Benadryl - PO 50 mg Q6H PRN Administration FOR ITCHING Gabapentin 200 mg 04/12/17 22:30 04/26/17 13:50 Neurontin - PO 200 mg TID [facility] Administration Hydralazine HCl 75 mg 04/17/17 22:00 04/26/17 13:51 Apresoline - PO 75 mg TID [facility] Administration Ibuprofen 400 mg 04/17/17 11:56 04/19/17 01:37 Motrin - PO 400 mg Q6H PRN Administration FEVER Insulin Aspart 1 vial 04/23/17 10:45 04/26/17 17:08 Novolog Vial Sliding Scale - SQ 8 unit ACHS [facility] Administration Protocol Insulin Detemir 16 units 04/24/17 22:00 04/26/17 06:24 Levemir Vial SQ 16 units BID@0700,2200 [facility] Administration Labetalol HCl 400 mg 04/12/17 22:30 04/26/17 13:50 Normodyne - PO 400 mg TID [facility] Administration Lidocaine HCl 20 ml 04/14/17 17:30 04/26/17 17:47 Xylocaine 2% Viscous Oral - MM 20 ml TIDAC [facility] Administration Losartan Potassium 100 mg 04/16/17 10:42 04/26/17 13:51 Cozaar - PO 100 mg DAILY [facility] Administration Nifedipine 30 mg 04/15/17 16:00 04/26/17 13:51 Procardia Xl - PO 30 mg DAILY [facility] Administration Oxycodone HCl 10 mg 04/24/17 23:06 04/26/17 13:50 Roxicodone - PO 10 mg Q6H PRN Administration PAIN LEVEL 7 - 10 Sevelamer Carbonate 1,600 mg 04/12/17 22:30 04/26/17 17:13 Renvela - PO 1,600 mg TIDCM [facility] Administration Sodium Chloride 2 spray 04/17/17 09:10 04/17/17 16:47 [place] Nasal [place] - NS 2 sprays BID PRN Administration NASAL CONGESTION ASSESSMENT/PLAN: Patient is a 26 year old female with a significant past medical history of ESRD , hypertension, diabetes, DVT, PE (on Eliquis), home oxygen dependent. She presents to the ED on 04/12/2017 with acute respiratory failure. Pulmonary: Acute Respiratory Failure On home oxygen dependent, tolerating 2 liters here Pre and post ordered if patient is willing, if not she has home oxygen Maintain oxygen levels >90% Duonebs Pulmonary following Renal: ESRD Dialysis today ID: Acute on chronic pelvic infection Biopsy with chronic/acute osteo LLE fluid collection, hip culture no growth Blood cultures with ngtd Vancomycin with dialysis Right lower extremity fluid collection Biopsy done, on Vanco, wound care Facial cellulitis, resolved On Vancomycin Right plantar abscess, s/p I&D 04/21 Culture with presumptive MRSA, on Vanco with dialysis Wound dressings changed by podiatry Cardiology: Hypertension BP recently elevated Continue Losartan 100mg po daily, Labetolol 400mg TID, Hydralazine 75mg TID Clonidine 0.3mg po TID, Nifedipine 30mg Hematology: Hx of DVT/PE Eliquis 5mg po bid
--- NOTE | 2017-04-26 19:28 | PN ---
Progress Note (short form) - Note Progress Note: Renal follow up for ESRD on HD Pt seen and examined at the bedside awake and alert s/p dialysis today BP very high following dialysis no cp, sob, gutierres, blurry vision has LE swelling Vital Signs Temperature 98.0 F 04/26/17 18:08 Pulse Rate 91 H 04/26/17 18:08 Respiratory Rate 20 04/26/17 18:08 Blood Pressure 183/113 04/26/17 18:08 O2 Sat by Pulse Oximetry (%) 98 04/26/17 09:00 NAD right foot in dressing 2+ LE edema CBC, BMP 04/26/17 09:15 04/26/17 09:15 Current Medications Acetaminophen (Tylenol -) 325 mg PO Q6H PRN PRN Reason: PAIN Last Admin: 04/23/17 12:29 Dose: 325 mg Acetaminophen (Tylenol -) 650 mg PO Q6H PRN PRN Reason: PAIN Last Admin: 04/26/17 04:56 Dose: 650 mg Albuterol/Ipratropium (Duoneb -) 1 amp NEB RTID [facility] Last Admin: 04/26/17 13:25 Dose: Not Given Apixaban (Eliquis -) 5 mg PO BID [facility] Last Admin: 04/26/17 10:07 Dose: Not Given Cinacalcet (Sensipar -) 60 mg PO DAILY [facility] Last Admin: 04/26/17 10:07 Dose: Not Given Clonidine (Catapres -) 0.3 mg PO TID [facility] Last Admin: 04/26/17 13:50 Dose: 0.3 mg Diphenhydramine HCl (Benadryl Injection -) 25 mg IVPB Q8H PRN PRN Reason: itching Last Admin: 04/26/17 14:01 Dose: 25 mg Diphenhydramine HCl (Benadryl -) 50 mg PO Q6H PRN PRN Reason: FOR ITCHING Last Admin: 04/26/17 17:47 Dose: 50 mg Gabapentin (Neurontin -) 200 mg PO TID [facility] Last Admin: 04/26/17 13:50 Dose: 200 mg Hydralazine HCl (Apresoline -) 75 mg PO TID [facility] Last Admin: 04/26/17 13:51 Dose: 75 mg Ibuprofen (Motrin -) 400 mg PO Q6H PRN PRN Reason: FEVER Last Admin: 04/19/17 01:37 Dose: 400 mg Insulin Aspart (Novolog Vial Sliding Scale -) 1 vial SQ ACHS [facility] PRN Reason: Protocol Last Admin: 04/26/17 17:08 Dose: 8 unit Insulin Detemir (Levemir Vial) 16 units SQ BID@0700,2200 [facility] Last Admin: 04/26/17 06:24 Dose: 16 units Labetalol HCl (Normodyne -) 400 mg PO TID [facility] Last Admin: 04/26/17 13:50 Dose: 400 mg Lidocaine HCl (Xylocaine 2% Viscous Oral -) 20 ml MM TIDAC [facility] Last Admin: 04/26/17 17:47 Dose: 20 ml Losartan Potassium (Cozaar -) 100 mg PO DAILY [facility] Last Admin: 04/26/17 13:51 Dose: 100 mg Nifedipine (Procardia Xl -) 30 mg PO DAILY [facility] Last Admin: 04/26/17 13:51 Dose: 30 mg Oxycodone HCl (Roxicodone -) 10 mg PO Q6H PRN PRN Reason: PAIN LEVEL 7 - 10 Last Admin: 04/26/17 13:50 Dose: 10 mg Sevelamer Carbonate (Renvela -) 1,600 mg PO TIDCM [facility] Last Admin: 04/26/17 17:13 Dose: 1,600 mg Sodium Chloride ([place] Nasal [place] -) 2 spray NS BID PRN PRN Reason: NASAL CONGESTION Last Admin: 04/17/17 16:47 Dose: 2 sprays 26 year old woman with PMhx of ESRD on HD (MWF), Hypertension, DM Typw 1, PE on Eliqus who presented to the ED wit complaints of GUTIERRES, diarrhea, and left LE pain. #suspected Pelvic inflammation/fluid collection in LLE biopsy showed inflammation chronic/acute osteomylitis culture w/o growth to date RLE abcess grew MRSA will continue vanco with dialysis #ESRD on HD with fluid overload s/p hd today tolerated it well #Hypertension pt received all bp meds after dialysis pt should receive her full complement of bp med every morning even if she is getting dialysis that day Nathan Vo DO
[2017-04-27] MEDS: LIDOCAINE VISCOUS 2% ORAL/TOP 20 ML UNIT-DOSE CUP MM SCH ×3 (01:00→18:15)
[2017-04-27] MEDS ORDERED: PT OWN MED DRAWER 7, Y5N ONE ×2 (06:01→22:22)
[2017-04-27] MEDS: LABETALOL HCL 200 MG TABLET (FP) PO SCH ×3 (06:53→22:48)
[2017-04-27] MEDS: cloNIDine HCL 0.1 MG TABLET PO SCH ×3 (06:53→22:48)
[2017-04-27] MEDS: hydrALAZINE HCL 50 MG TABLET (FP) PO SCH ×3 (06:53→22:48)
[2017-04-27] MEDS: GABAPENTIN 100 MG CAPSULE (FP) PO SCH ×3 (06:54→22:48)
[2017-04-27] MEDS: INSULIN SLIDING SCALE (NOVOLOG) 1 VIAL SQ SCH ×4 (06:55→22:48)
[2017-04-27] MEDS: INSULIN DETEMIR 100 UNITS/ML MDV SQ SCH ×2 (06:55→22:48)
[2017-04-27] MEDS ORDERED: INSULIN (NOVOLOG) ASPART 100 UNITS/ML 10ML VIAL ONE (07:04)
[2017-04-27] MEDS: diphenhydrAMINE HCL 25 MG CAPSULE (FP) PO PRN ×3 (07:06→22:56)
[2017-04-27] MEDS: oxyCODONE HCL 5 MG TABLET PO PRN ×3 (07:06→22:56)
[2017-04-27] MEDS: ACETAMINOPHEN 325 MG TABLET (FP) PO PRN ×2 (07:07→22:57)
[2017-04-27 08:01] LABS: BASO % 1.1 % (0-2.0); EOS % 1.8 % (0-4.5); HEMOGLOBIN 8.1 GM/dL (10.7-15.3); LYMPH % 10.5 % (8-40); MCH 27.3 pg (25.7-33.7); MCHC 31.3 g/dl (32.0-36.0); MEAN PLT VOLUME 8.7 fl (7.5-11.1); MONO % 9.6 % (3.8-10.2); PLATELET COUNT 411 K/MM3 (134-434); RBC 2.99 M/mm3 (3.60-5.2); RDW 16.6 % (11.6-15.6)
[2017-04-27 08:04] LABS: ALBUMIN 2.9 g/dl (3.4-5.0); ANION GAP 13 (8-16); BLOOD UREA NITROGEN 61 mg/dL (7-18); CALCIUM 8.8 mg/dL (8.5-10.1); CHLORIDE 94 mmol/L (98-107); CO2 29 mmol/L (21-32); GLUCOSE,RANDOM 229 mg/dL (74-106); POTASSIUM 4.2 mmol/L (3.5-5.1); SODIUM 136 mmol/L (136-145)
[2017-04-27 08:19] LABS: BILIRUBIN,TOTAL 1.1 mg/dL (0.2-1.0); CREATININE 4.6 mg/dL (0.55-1.02); SGOT/AST 81 U/L (15-37); SGPT/ALT 67 U/L (12-78); TOT PROT 8.5 g/dl (6.4-8.2)
[2017-04-27 08:27] LABS: ALK PHOS 1981 U/L (45-117)
[2017-04-27] MEDS: SEVELAMER CARBONATE 800 MG TAB (FP) PO SCH ×3 (08:32→16:34)
[2017-04-27] MEDS: LOSARTAN POTASSIUM 50 MG TABLET (FP) PO SCH (09:39)
[2017-04-27] MEDS: APIXABAN 5 MG TABLET PO SCH ×2 (09:40→22:48)
[2017-04-27] MEDS: CINACALCET HCL 30 MG TAB (FP) PO SCH (10:00)
--- NOTE | 2017-04-27 11:08 | PN ---
Progress Note (short form) - Note Progress Note: PULMONARY Some shortness of breath with lying down. Dialyzed yesterday. No cough or fevers Last Vital Signs Temp Pulse Resp BP Pulse Ox 98.2 F 85 20 159/98 97 04/27/17 06:00 04/27/17 06:00 04/27/17 06:00 04/27/17 06:00 04/26/17 21:00 Gen: NAD at rest Heart: RRR Lung: decreased breath sounds at the bases Abd: soft, nontender Ext: + edema CBC, BMP 04/27/17 06:00 04/27/17 06:00 Active Medications Acetaminophen (Tylenol -) 325 mg PO Q6H PRN PRN Reason: PAIN Last Admin: 04/23/17 12:29 Dose: 325 mg Acetaminophen (Tylenol -) 650 mg PO Q6H PRN PRN Reason: PAIN Last Admin: 04/27/17 07:07 Dose: 650 mg Apixaban (Eliquis -) 5 mg PO BID [facility] Last Admin: 04/27/17 09:40 Dose: 5 mg Cinacalcet (Sensipar -) 60 mg PO DAILY [facility] Last Admin: 04/26/17 10:07 Dose: Not Given Clonidine (Catapres -) 0.3 mg PO TID [facility] Last Admin: 04/27/17 06:53 Dose: 0.3 mg Diphenhydramine HCl (Benadryl Injection -) 25 mg IVPB Q8H PRN PRN Reason: itching Last Admin: 04/26/17 14:01 Dose: 25 mg Diphenhydramine HCl (Benadryl -) 50 mg PO Q6H PRN PRN Reason: FOR ITCHING Last Admin: 04/27/17 07:06 Dose: 50 mg Gabapentin (Neurontin -) 200 mg PO TID [facility] Last Admin: 04/27/17 06:54 Dose: 200 mg Hydralazine HCl (Apresoline -) 75 mg PO TID [facility] Last Admin: 04/27/17 06:53 Dose: 75 mg Ibuprofen (Motrin -) 400 mg PO Q6H PRN PRN Reason: FEVER Last Admin: 04/19/17 01:37 Dose: 400 mg Insulin Aspart (Novolog Vial Sliding Scale -) 1 vial SQ ACHS [facility] PRN Reason: Protocol Last Admin: 04/27/17 06:55 Dose: 4 unit Insulin Detemir (Levemir Vial) 16 units SQ BID@0700,2200 [facility] Last Admin: 04/27/17 06:55 Dose: 16 units Labetalol HCl (Normodyne -) 400 mg PO TID [facility] Last Admin: 04/27/17 06:53 Dose: 400 mg Lidocaine HCl (Xylocaine 2% Viscous Oral -) 20 ml MM TIDAC [facility] Last Admin: 04/27/17 06:55 Dose: Not Given Losartan Potassium (Cozaar -) 100 mg PO DAILY [facility] Last Admin: 04/27/17 09:39 Dose: 100 mg Nifedipine (Procardia Xl -) 30 mg PO DAILY [facility] Last Admin: 04/26/17 13:51 Dose: 30 mg Oxycodone HCl (Roxicodone -) 10 mg PO Q6H PRN PRN Reason: PAIN LEVEL 7 - 10 Last Admin: 04/27/17 07:06 Dose: 10 mg Sevelamer Carbonate (Renvela -) 1,600 mg PO TIDCM [facility] Last Admin: 04/27/17 09:39 Dose: 1,600 mg Sodium Chloride ([place] Nasal [place] -) 2 spray NS BID PRN PRN Reason: NASAL CONGESTION Last Admin: 04/17/17 16:47 Dose: 2 sprays A/P ESRD on HD Volume Overload Pulmonary HTN Pelvic Osteomyelitis h/o PE HTN DM - HD per renal with ultrafiltration - O2 to keep SpO2 >90% - continue antibiotics - fluid restriction - continue anticoagulation - BP control - inhaled bronchodilators as needed
[2017-04-27] MEDS: NIFEdipine E.R. 30 MG TABLET (FP) PO SCH (11:24)
[2017-04-27] MEDS ORDERED: NIFEdipine E.R. 30 MG TABLET (FP) PO ONE (14:07)
--- NOTE | 2017-04-27 15:25 | PN ---
Progress Note (short form) - Note Progress Note: Podiatry F/U: Seen/evaluated at bedside in HD, NAD. Pain controlled, denies F/V/N/C/SOB/CP. s/p R foot incision and drainage of abscess. Afebrile, VSS. CATRACHITA: R foot: sutures well coapted plantar lateral midfoot with strong granular base central aspect of foot, no purulent drainage, no serous drainage, no fluctuance , no periwound erythema, no ascending cellulitis, no signs of active infection. No tenderness to palpation. WBC: 12.0 OR Cx: MRSA Imp: 26 year old IDDM F s/p R foot incision and drainage of abscess 1. C/w IV abx per ID 2. Bactroban + DSD R foot 3. Explained to patient she has to minimize her weightbearing activity. 4. Glycemic control. 5. F/u in [facility] wound healing center 05/04/17. Delfino Dubon DPM
--- NOTE | 2017-04-27 15:37 | PN ---
Progress Note, Physician History of Present Illness: Seen in HD. No complaints S/P I&D R foot soft tissue abscess Foot wound c/s MRSA Pelvic bone bx / asp cultures no growth Bx c/w osteomyelitis No fever/ chills L nasal swelling resolved - Current Medication List Current Medications: Active Medications Acetaminophen (Tylenol -) 325 mg PO Q6H PRN PRN Reason: PAIN Last Admin: 04/23/17 12:29 Dose: 325 mg Acetaminophen (Tylenol -) 650 mg PO Q6H PRN PRN Reason: PAIN Last Admin: 04/27/17 07:07 Dose: 650 mg Apixaban (Eliquis -) 5 mg PO BID [facility] Last Admin: 04/27/17 09:40 Dose: 5 mg Cinacalcet (Sensipar -) 60 mg PO DAILY [facility] Last Admin: 04/27/17 10:00 Dose: 60 mg Clonidine (Catapres -) 0.3 mg PO TID [facility] Last Admin: 04/27/17 06:53 Dose: 0.3 mg Diphenhydramine HCl (Benadryl Injection -) 25 mg IVPB Q8H PRN PRN Reason: itching Last Admin: 04/26/17 14:01 Dose: 25 mg Diphenhydramine HCl (Benadryl -) 50 mg PO Q6H PRN PRN Reason: FOR ITCHING Last Admin: 04/27/17 07:06 Dose: 50 mg Gabapentin (Neurontin -) 200 mg PO TID [facility] Last Admin: 04/27/17 06:54 Dose: 200 mg Hydralazine HCl (Apresoline -) 75 mg PO TID [facility] Last Admin: 04/27/17 06:53 Dose: 75 mg Ibuprofen (Motrin -) 400 mg PO Q6H PRN PRN Reason: FEVER Last Admin: 04/19/17 01:37 Dose: 400 mg Insulin Aspart (Novolog Vial Sliding Scale -) 1 vial SQ ACHS [facility] PRN Reason: Protocol Last Admin: 04/27/17 12:04 Dose: 2 unit Insulin Detemir (Levemir Vial) 16 units SQ BID@0700,2200 [facility] Last Admin: 04/27/17 06:55 Dose: 16 units Labetalol HCl (Normodyne -) 400 mg PO TID [facility] Last Admin: 04/27/17 06:53 Dose: 400 mg Lidocaine HCl (Xylocaine 2% Viscous Oral -) 20 ml MM TIDAC [facility] Last Admin: 04/27/17 06:55 Dose: Not Given Losartan Potassium (Cozaar -) 100 mg PO DAILY [facility] Last Admin: 04/27/17 09:39 Dose: 100 mg Mupirocin (Bactroban 2% Ointment -) 1 applic TP DAILY [facility] Nifedipine (Procardia Xl -) 30 mg PO DAILY [facility] Last Admin: 04/27/17 11:24 Dose: 30 mg Oxycodone HCl (Roxicodone -) 10 mg PO Q6H PRN PRN Reason: PAIN LEVEL 7 - 10 Last Admin: 04/27/17 07:06 Dose: 10 mg Sevelamer Carbonate (Renvela -) 1,600 mg PO TIDCM [facility] Last Admin: 04/27/17 12:00 Dose: 1,600 mg Sodium Chloride ([place] Nasal [place] -) 2 spray NS BID PRN PRN Reason: NASAL CONGESTION Last Admin: 04/17/17 16:47 Dose: 2 sprays - Objective Vital Signs: Vital Signs Temperature 98.1 F 04/27/17 13:05 Pulse Rate 89 04/27/17 14:40 Respiratory Rate 18 04/27/17 14:40 Blood Pressure 142/70 04/27/17 14:40 O2 Sat by Pulse Oximetry (%) 98 04/27/17 09:00 Constitutional: Yes: No Distress Eyes: Yes: Conjunctiva Clear Cardiovascular: Yes: Regular Rate and Rhythm, S1, S2 Respiratory: Yes: CTA Bilaterally Gastrointestinal: Yes: Normal Bowel Sounds, Soft. No: Tenderness Labs: CBC, BMP 04/27/17 06:00 04/27/17 06:00 INR, PTT INR 1.13 (0.82-1.09) 04/12/17 16:48 Assessment/Plan Nasal cellulitis resolved S/P I&D R plantar abscess pelvic osteomyelitis cultures no growth ESRD Vanco level theraputic Check random level am
--- NOTE | 2017-04-27 16:17 | PN ---
Progress Note (short form) - Note Progress Note: Renal follow up for ESRD on HD Pt seen and examined at the bedside s/p isolated UF today, tolerated 3kg UF s/p x-ray of knee today no sob, chest pain, fever, chills Vital Signs Temperature 98.1 F 04/27/17 13:05 Pulse Rate 90 04/27/17 15:43 Respiratory Rate 18 04/27/17 15:43 Blood Pressure 139/78 04/27/17 15:43 O2 Sat by Pulse Oximetry (%) 98 04/27/17 09:00 Intake & Output 04/24/17 04/25/17 04/26/17 04/27/17 23:59 23:59 23:59 23:59 Intake Total 750 480 450 440 Balance 750 480 450 440 Weight 67.676 kg 68.492 kg NAD right foot in dressing 2+ LE edema CBC, BMP 04/27/17 06:00 04/27/17 06:00 Current Medications Acetaminophen (Tylenol -) 325 mg PO Q6H PRN PRN Reason: PAIN Last Admin: 04/23/17 12:29 Dose: 325 mg Acetaminophen (Tylenol -) 650 mg PO Q6H PRN PRN Reason: PAIN Last Admin: 04/27/17 07:07 Dose: 650 mg Apixaban (Eliquis -) 5 mg PO BID [facility] Last Admin: 04/27/17 09:40 Dose: 5 mg Cinacalcet (Sensipar -) 60 mg PO DAILY [facility] Last Admin: 04/27/17 10:00 Dose: 60 mg Clonidine (Catapres -) 0.3 mg PO TID [facility] Last Admin: 04/27/17 06:53 Dose: 0.3 mg Diphenhydramine HCl (Benadryl Injection -) 25 mg IVPB Q8H PRN PRN Reason: itching Last Admin: 04/26/17 14:01 Dose: 25 mg Diphenhydramine HCl (Benadryl -) 50 mg PO Q6H PRN PRN Reason: FOR ITCHING Last Admin: 04/27/17 07:06 Dose: 50 mg Gabapentin (Neurontin -) 200 mg PO TID [facility] Last Admin: 04/27/17 06:54 Dose: 200 mg Hydralazine HCl (Apresoline -) 75 mg PO TID [facility] Last Admin: 04/27/17 06:53 Dose: 75 mg Ibuprofen (Motrin -) 400 mg PO Q6H PRN PRN Reason: FEVER Last Admin: 04/19/17 01:37 Dose: 400 mg Insulin Aspart (Novolog Vial Sliding Scale -) 1 vial SQ ACHS [facility] PRN Reason: Protocol Last Admin: 04/27/17 12:04 Dose: 2 unit Insulin Detemir (Levemir Vial) 16 units SQ BID@0700,2200 [facility] Last Admin: 04/27/17 06:55 Dose: 16 units Labetalol HCl (Normodyne -) 400 mg PO TID [facility] Last Admin: 04/27/17 06:53 Dose: 400 mg Lidocaine HCl (Xylocaine 2% Viscous Oral -) 20 ml MM TIDAC [facility] Last Admin: 04/27/17 06:55 Dose: Not Given Losartan Potassium (Cozaar -) 100 mg PO DAILY [facility] Last Admin: 04/27/17 09:39 Dose: 100 mg Mupirocin (Bactroban 2% Ointment -) 1 applic TP DAILY [facility] Nifedipine (Procardia Xl -) 30 mg PO DAILY [facility] Last Admin: 04/27/17 11:24 Dose: 30 mg Oxycodone HCl (Roxicodone -) 10 mg PO Q6H PRN PRN Reason: PAIN LEVEL 7 - 10 Last Admin: 04/27/17 07:06 Dose: 10 mg Sevelamer Carbonate (Renvela -) 1,600 mg PO TIDCM [facility] Last Admin: 04/27/17 12:00 Dose: 1,600 mg Sodium Chloride ([place] Nasal [place] -) 2 spray NS BID PRN PRN Reason: NASAL CONGESTION Last Admin: 04/17/17 16:47 Dose: 2 sprays 26 year old woman with PMhx of ESRD on HD (MWF), Hypertension, DM Typw 1, PE on Eliqus who presented to the ED wit complaints of GUTIERRES, diarrhea, and left LE pain. #suspected Pelvic inflammation/fluid collection in LLE biopsy showed inflammation chronic/acute osteomylitis hip culture no growth foot culture grew MRSA continue Vanco with dialysis #ESRD on HD with fluid overload s/p isolated UF today tolerated it well will plan for regular dialysis tomorrow #Hypertension Increase Nifedpine to 30mg BID continue Clonidine, Labetalol, Hydralazine goal BP < 140/90 Nathan Vo DO
--- NOTE | 2017-04-27 20:36 | PN ---
Physical Exam: SUBJECTIVE: Patient seen and examined OBJECTIVE: s/p dialysis today Cardiac meds adjusted for elevated BP, given Procardia 30mg x 1 Patient now refusing rehab. Vital Signs Period Temp Pulse Resp BP Sys/Ames Pulse Ox Last 24 Hr 97.8 F-98.2 F 80-93 16-20 131-161/70-101 97-98 GENERAL: The patient is awake, alert, and fully oriented, in no acute distress. HEAD: Normal with no signs of trauma. EYES: PERRL, extraocular movements intact, sclera anicteric, conjunctiva clear. No ptosis. ENT: Ears normal, nares patent, oropharynx clear without exudates, moist mucous membranes. NECK: Trachea midline, full range of motion, supple. LUNGS: Breath sounds equal, clear to auscultation bilaterally, no wheezes, no crackles, no accessory muscle use. HEART: Regular rate and rhythm, S1, S2 without murmur, rub or gallop. ABDOMEN: Soft, nontender, nondistended, normoactive bowel sounds, no guarding, no rebound, no hepatosplenomegaly, no masses. Laboratory Results - last 24 hr 04/27/17 04/27/17 04/27/17 00:12 06:00 06:00 WBC 12.0 H RBC 2.99 L Hgb 8.1 L Hct 26.0 L MCV 87.0 MCH 27.3 MCHC 31.3 L RDW 16.6 H Plt Count 411 MPV 8.7 Neutrophils % 77.0 Lymphocytes % 10.5 Monocytes % 9.6 Eosinophils % 1.8 Basophils % 1.1 Sodium Potassium Chloride Carbon Dioxide Anion Gap BUN Creatinine Creat Clearance w eGFR POC Glucometer 378 Random Glucose Calcium Total Bilirubin AST ALT Alkaline Phosphatase Total Protein Albumin Random Vancomycin 28.619 04/27/17 04/27/17 04/27/17 06:00 06:51 12:00 WBC RBC Hgb Hct MCV MCH MCHC RDW Plt Count MPV Neutrophils % Lymphocytes % Monocytes % Eosinophils % Basophils % Sodium 136 Potassium 4.2 Chloride 94 L Carbon Dioxide 29 Anion Gap 13 BUN 61 H D Creatinine 4.6 H Creat Clearance w eGFR 11.43 POC Glucometer 231 152 Random Glucose 229 H Calcium 8.8 Total Bilirubin 1.1 H AST 81 H ALT 67 Alkaline Phosphatase 1981 H Total Protein 8.5 H Albumin 2.9 L Random Vancomycin 04/27/17 16:26 WBC RBC Hgb Hct MCV MCH MCHC RDW Plt Count MPV Neutrophils % Lymphocytes % Monocytes % Eosinophils % Basophils % Sodium Potassium Chloride Carbon Dioxide Anion Gap BUN Creatinine Creat Clearance w eGFR POC Glucometer 175 Random Glucose Calcium Total Bilirubin AST ALT Alkaline Phosphatase Total Protein Albumin Random Vancomycin Active Medications Generic Name Dose Route Start Last Admin Trade Name Freq PRN Reason Stop Dose Admin Acetaminophen 325 mg 04/12/17 22:29 04/23/17 12:29 Tylenol - PO 325 mg Q6H PRN Administration PAIN Acetaminophen 650 mg 04/13/17 09:42 04/27/17 07:07 Tylenol - PO 650 mg Q6H PRN Administration PAIN Apixaban 5 mg 04/25/17 10:00 04/27/17 09:40 Eliquis - PO 5 mg BID ROSA MARIA Administration Cinacalcet 60 mg 04/16/17 13:15 04/27/17 10:00 Sensipar - PO 60 mg DAILY ROSA MARIA Administration Clonidine 0.3 mg 04/12/17 22:30 04/27/17 16:32 Catapres - PO 0.3 mg TID ROSA MARIA Administration Diphenhydramine HCl 25 mg 04/25/17 14:01 04/26/17 14:01 Benadryl Injection - IVPB 25 mg Q8H PRN Administration itching Diphenhydramine HCl 50 mg 04/26/17 17:32 04/27/17 16:34 Benadryl - PO 50 mg Q6H PRN Administration FOR ITCHING Epoetin Abiel 20,000 unit 04/28/17 06:00 Epogen - IVPUSH 04/28/17 06:01 ONCE ONE Gabapentin 200 mg 04/12/17 22:30 04/27/17 16:33 Neurontin - PO 200 mg TID ROSA MARIA Administration Hydralazine HCl 75 mg 04/17/17 22:00 04/27/17 16:00 Apresoline - PO 75 mg TID ROSA MARIA Administration Ibuprofen 400 mg 04/17/17 11:56 04/19/17 01:37 Motrin - PO 400 mg Q6H PRN Administration FEVER Insulin Aspart 1 vial 04/23/17 10:45 04/27/17 16:35 Novolog Vial Sliding Scale - SQ 2 unit ACHS ROSA MARIA Administration Protocol Insulin Detemir 16 units 04/24/17 22:00 04/27/17 06:55 Levemir Vial SQ 16 units BID@0700,2200 ROSA MARIA Administration Labetalol HCl 400 mg 04/12/17 22:30 04/27/17 16:33 Normodyne - PO 400 mg TID ROSA MARIA Administration Lidocaine HCl 20 ml 04/14/17 17:30 04/27/17 18:15 Xylocaine 2% Viscous Oral - MM Not Given TIDAC [facility] Losartan Potassium 100 mg 04/16/17 10:42 04/27/17 09:39 Cozaar - PO 100 mg DAILY ROSA MARIA Administration Mupirocin 1 applic 04/28/17 10:00 Bactroban 2% Ointment - TP DAILY [facility] Nifedipine 30 mg 04/15/17 16:00 04/27/17 11:24 Procardia Xl - PO 30 mg DAILY ROSA MARIA Administration Oxycodone HCl 10 mg 04/24/17 23:06 04/27/17 16:31 Roxicodone - PO 10 mg Q6H PRN Administration PAIN LEVEL 7 - 10 Sevelamer Carbonate 1,600 mg 04/12/17 22:30 04/27/17 16:34 Renvela - PO 1,600 mg TIDCM ROSA MARIA Administration Sodium Chloride 2 spray 04/17/17 09:10 04/17/17 16:47 [place] Nasal [place] - NS 2 sprays BID PRN Administration NASAL CONGESTION ASSESSMENT/PLAN: Patient is a 26 year old female with a significant past medical history of ESRD , hypertension, diabetes, DVT, PE (on Eliquis), home oxygen dependent. She presents to the ED on 04/12/2017 with acute respiratory failure. Pulmonary: Acute Respiratory Failure On home oxygen dependent, tolerating 2 liters here Pre and post ordered if patient is willing, if not she has home oxygen and a portable tank Maintain oxygen levels >90% Duonebs Pulmonary following Renal: ESRD Dialysis today ID: Acute on chronic pelvic infection Biopsy with chronic/acute osteo LLE fluid collection, hip culture no growth Blood cultures with ngtd Vancomycin with dialysis Right lower extremity fluid collection Biopsy done, on Vanco, wound care Facial cellulitis, resolved On Vancomycin Right plantar abscess, s/p I&D 04/21 Culture with presumptive MRSA, on Vanco with dialysis Wound dressings changed by podiatry Cardiology: Hypertension BP elevated Continue Losartan 100mg po daily, Labetolol 400mg TID, Hydralazine 75mg TID Clonidine 0.3mg po TID, Nifedipine 30mg BID Hematology: Hx of DVT/PE Eliquis 5mg po bid
[2017-04-28] MEDS: cloNIDine HCL 0.1 MG TABLET PO SCH ×3 (06:54→22:40)
[2017-04-28] MEDS: GABAPENTIN 100 MG CAPSULE (FP) PO SCH ×3 (06:54→22:41)
[2017-04-28] MEDS: LABETALOL HCL 200 MG TABLET (FP) PO SCH ×3 (06:54→22:41)
[2017-04-28] MEDS: hydrALAZINE HCL 50 MG TABLET (FP) PO SCH ×3 (06:54→22:38)
[2017-04-28] MEDS: INSULIN SLIDING SCALE (NOVOLOG) 1 VIAL SQ SCH ×4 (06:55→22:42)
[2017-04-28] MEDS: INSULIN DETEMIR 100 UNITS/ML MDV SQ SCH ×2 (06:55→22:43)
[2017-04-28] MEDS ORDERED: INSULIN (NOVOLOG) ASPART 100 UNITS/ML 10ML VIAL ONE ×3 (07:02→21:21)
[2017-04-28] MEDS: LIDOCAINE VISCOUS 2% ORAL/TOP 20 ML UNIT-DOSE CUP MM SCH ×3 (07:47→16:29)
[2017-04-28] MEDS: diphenhydrAMINE HCL 25 MG CAPSULE (FP) PO PRN ×3 (08:28→22:36)
[2017-04-28] MEDS: SEVELAMER CARBONATE 800 MG TAB (FP) PO SCH ×3 (08:28→16:33)
[2017-04-28] MEDS ORDERED: PT OWN MED DRAWER 7, Y5N ONE ×2 (09:52→21:23)
[2017-04-28] MEDS: LOSARTAN POTASSIUM 50 MG TABLET (FP) PO SCH (09:54)
[2017-04-28] MEDS: NIFEdipine E.R. 30 MG TABLET (FP) PO SCH ×2 (09:56→22:40)
[2017-04-28] MEDS: oxyCODONE HCL 5 MG TABLET PO PRN ×3 (09:57→22:36)
[2017-04-28] MEDS: ACETAMINOPHEN 325 MG TABLET (FP) PO PRN ×3 (09:57→22:37)
[2017-04-28] MEDS: APIXABAN 5 MG TABLET PO SCH ×2 (09:57→22:41)
[2017-04-28] MEDS: CINACALCET HCL 30 MG TAB (FP) PO SCH ×2 (09:57→13:27)
[2017-04-28] MEDS: MUPIROCIN 2% TOPICAL OINTMENT 22 GM TUBE TP SCH (09:58)
[2017-04-28] MEDS ORDERED: EPOETIN ALFA 20,000 UNIT/1 ML VIAL IVPUSH ONE (11:15)
[2017-04-28 11:49] LABS: BASO % 0.3 % (0-2.0); EOS % 2.6 % (0-4.5); HEMATOCRIT 25.6 % (32.4-45.2); HEMOGLOBIN 7.8 GM/dL (10.7-15.3); LYMPH % 9.5 % (8-40); MCH 26.6 pg (25.7-33.7); MCHC 30.6 g/dl (32.0-36.0); MEAN CELL VOLUME 86.9 fl (80-96); MEAN PLT VOLUME 8.4 fl (7.5-11.1); NEUT % 79.6 % (42.8-82.8); PLATELET COUNT 465 K/MM3 (134-434); RBC 2.95 M/mm3 (3.60-5.2); RDW 16.8 % (11.6-15.6); WHITE BLOOD COUNT 11.9 K/mm3 (4.0-10.0)
[2017-04-28 12:29] LABS: ALBUMIN 2.9 g/dl (3.4-5.0); ANION GAP 13 (8-16); BLOOD UREA NITROGEN 74 mg/dL (7-18); CALCIUM 8.1 mg/dL (8.5-10.1); CHLORIDE 97 mmol/L (98-107); CO2 26 mmol/L (21-32); CREATININE 5.5 mg/dL (0.55-1.02); GLUCOSE,RANDOM 292 mg/dL (74-106); POTASSIUM 4.1 mmol/L (3.5-5.1); SGOT/AST 75 U/L (15-37); SGPT/ALT 68 U/L (12-78); SODIUM 136 mmol/L (136-145); TOT PROT 8.4 g/dl (6.4-8.2)
[2017-04-28 12:42] LABS: ALK PHOS 2016 U/L (45-117)
--- NOTE | 2017-04-28 16:59 | PN ---
Physical Exam: SUBJECTIVE: Patient seen and examined, states she feels well today. Wants to go to rehab now, but does not want to go to [facility]. OBJECTIVE: Follow up with social work regarding rehab placement, pt willing, does not want to go to [facility] Vital Signs Period Temp Pulse Resp BP Sys/Ames Pulse Ox Last 24 Hr 97.8 F-98.2 F 86-96 18-20 142-188/81-120 95-97 GENERAL: The patient is awake, alert, and fully oriented, in no acute distress. HEAD: Normal with no signs of trauma. EYES: PERRL, extraocular movements intact, sclera anicteric, conjunctiva clear. No ptosis. ENT: Ears normal, nares patent, oropharynx clear without exudates, moist mucous membranes. NECK: Trachea midline, full range of motion, supple. LUNGS: Breath sounds equal, clear to auscultation bilaterally, no wheezes, no crackles, no accessory muscle use. HEART: Regular rate and rhythm, S1, S2 without murmur, rub or gallop. ABDOMEN: Soft, nontender, nondistended, normoactive bowel sounds, no guarding, no rebound, no hepatosplenomegaly, no masses. Laboratory Results - last 24 hr 04/26/17 04/27/17 04/27/17 22:44 16:26 22:46 WBC RBC Hgb Hct MCV MCH MCHC RDW Plt Count MPV Neutrophils % Lymphocytes % Monocytes % Eosinophils % Basophils % Sodium Potassium Chloride Carbon Dioxide Anion Gap BUN Creatinine Creat Clearance w eGFR POC Glucometer 441 175 473 Random Glucose Calcium Total Bilirubin AST ALT Alkaline Phosphatase Total Protein Albumin Random Vancomycin 04/28/17 04/28/17 04/28/17 00:34 06:53 10:57 WBC RBC Hgb Hct MCV MCH MCHC RDW Plt Count MPV Neutrophils % Lymphocytes % Monocytes % Eosinophils % Basophils % Sodium Potassium Chloride Carbon Dioxide Anion Gap BUN Creatinine Creat Clearance w eGFR POC Glucometer 369 382 304 Random Glucose Calcium Total Bilirubin AST ALT Alkaline Phosphatase Total Protein Albumin Random Vancomycin 04/28/17 04/28/17 04/28/17 11:30 11:30 12:15 WBC 11.9 H RBC 2.95 L Hgb 7.8 L Hct 25.6 L MCV 86.9 MCH 26.6 MCHC 30.6 L RDW 16.8 H Plt Count 465 H MPV 8.4 Neutrophils % 79.6 Lymphocytes % 9.5 Monocytes % 8.0 Eosinophils % 2.6 Basophils % 0.3 Sodium 136 Potassium 4.1 Chloride 97 L Carbon Dioxide 26 Anion Gap 13 BUN 74 H Creatinine 5.5 H Creat Clearance w eGFR 9.30 POC Glucometer Random Glucose 292 H Calcium 8.1 L Total Bilirubin 1.0 AST 75 H ALT 68 Alkaline Phosphatase 2016 H Total Protein 8.4 H Albumin 2.9 L Random Vancomycin 21.227 Active Medications Generic Name Dose Route Start Last Admin Trade Name Freq PRN Reason Stop Dose Admin Acetaminophen 325 mg 04/12/17 22:29 04/23/17 12:29 Tylenol - PO 325 mg Q6H PRN Administration PAIN Acetaminophen 650 mg 04/13/17 09:42 04/28/17 16:08 Tylenol - PO 650 mg Q6H PRN Administration PAIN Apixaban 5 mg 04/25/17 10:00 04/28/17 09:57 Eliquis - PO 5 mg BID ROSA MARIA Administration Cinacalcet 60 mg 04/16/17 13:15 04/28/17 13:27 Sensipar - PO Not Given DAILY ROSA MARIA Clonidine 0.3 mg 04/12/17 22:30 04/28/17 16:06 Catapres - PO 0.3 mg TID ROSA MARIA Administration Diphenhydramine HCl 25 mg 04/25/17 14:01 04/26/17 14:01 Benadryl Injection - IVPB 25 mg Q8H PRN Administration itching Diphenhydramine HCl 50 mg 04/26/17 17:32 04/28/17 16:06 Benadryl - PO 50 mg Q6H PRN Administration FOR ITCHING Gabapentin 200 mg 04/12/17 22:30 04/28/17 16:07 Neurontin - PO 200 mg TID ROSA MARIA Administration Hydralazine HCl 75 mg 04/17/17 22:00 04/28/17 16:06 Apresoline - PO 75 mg TID ROSA MARIA Administration Ibuprofen 400 mg 04/17/17 11:56 04/19/17 01:37 Motrin - PO 400 mg Q6H PRN Administration FEVER Insulin Aspart 1 vial 04/23/17 10:45 04/28/17 16:29 Novolog Vial Sliding Scale - SQ 6 unit ACHS ROSA MARIA Administration Protocol Insulin Detemir 16 units 04/24/17 22:00 04/28/17 06:55 Levemir Vial SQ 16 units BID@0700,2200 ROSA MARIA Administration Labetalol HCl 400 mg 04/12/17 22:30 04/28/17 16:07 Normodyne - PO 400 mg TID ROSA MARIA Administration Lidocaine HCl 20 ml 04/14/17 17:30 04/28/17 16:29 Xylocaine 2% Viscous Oral - MM Not Given TIDAC ROSA MARIA Losartan Potassium 100 mg 04/16/17 10:42 04/28/17 09:54 Cozaar - PO 100 mg DAILY ROSA MARIA Administration Mupirocin 1 applic 04/28/17 10:00 04/28/17 09:58 Bactroban 2% Ointment - TP 1 applic DAILY ROSA MARIA Administration Nifedipine 30 mg 04/28/17 22:00 Procardia Xl - PO BID ROSA MARIA Oxycodone HCl 10 mg 04/28/17 08:46 04/28/17 16:07 Roxicodone - PO 10 mg Q6H PRN Administration PAIN LEVEL 6-10 Sevelamer Carbonate 1,600 mg 04/12/17 22:30 04/28/17 16:33 Renvela - PO 1,600 mg TIDCM ROSA MARIA Administration Sodium Chloride 2 spray 04/17/17 09:10 04/17/17 16:47 [place] Nasal [place] - NS 2 sprays BID PRN Administration NASAL CONGESTION ASSESSMENT/PLAN: Patient is a 26 year old female with a significant past medical history of ESRD , hypertension, diabetes, DVT, PE (on Eliquis), home oxygen dependent. She presents to the ED on 04/12/2017 with acute respiratory failure. Pulmonary: Acute Respiratory Failure, resolved On home oxygen dependent, tolerating 2 liters here Pre and post ordered if patient is willing, if not she has home oxygen and a portable tank Maintain oxygen levels >90% Duonebs Pulmonary following Renal: ESRD Dialysis today, tolerating ID: Acute on chronic pelvic infection Biopsy with chronic/acute osteo LLE fluid collection, hip culture no growth Blood cultures with ngtd Vancomycin with dialysis Right lower extremity fluid collection Biopsy done, on Vanco, wound care Facial cellulitis, resolved On Vancomycin Right plantar abscess, s/p I&D 04/21 Culture with presumptive MRSA, on Vanco with dialysis Wound dressings changed by podiatry Cardiology: Hypertension, not yet at goal BP elevated again today, but improving Continue Losartan 100mg po daily, Labetolol 400mg TID, Hydralazine 75mg TID Clonidine 0.3mg po TID, Nifedipine 30mg BID (increased) Monitor BP, not yet at goal of 140/90 or better Hematology: Hx of DVT/PE Eliquis 5mg po bid F.E.N. Fluids: none needed Electrolyes: monitor Nutrition: renal diet Prophylaxis: DVT: Eliquis BID GI: deferred Disposition. full code. Patient agreement to go to [facility], but does not want to go to [facility]. Visit type - Emergency Visit Emergency Visit: Yes ED Registration Date: 04/12/17 Care time: The patient presented to the Emergency Department on the above date and was hospitalized for further evaluation of their emergent condition. - New Patient This patient is new to me today: No - Critical Care Critical Care patient: No - Discharge Referral Referred to [facility] Med P.C.: No
--- NOTE | 2017-04-28 17:00 | PN ---
Progress Note (short form) - Note Progress Note: Renal follow up for ESRD on HD Pt seen and examined during dialysis BP 150/84 AVF with good flow UF goal 4L pt without complaints Vital Signs Temperature 98.1 F 04/28/17 11:25 Pulse Rate 92 H 04/28/17 15:35 Respiratory Rate 18 04/28/17 15:35 Blood Pressure 169/90 04/28/17 15:35 O2 Sat by Pulse Oximetry (%) 95 04/28/17 09:00 Intake & Output 04/25/17 04/26/17 04/27/17 04/28/17 23:59 23:59 23:59 23:59 Intake Total 480 450 740 200 Balance 480 450 740 200 Weight 68.492 kg NAD right foot in dressing 2+ LE edema CBC, BMP 04/28/17 11:30 04/28/17 11:30 Current Medications Acetaminophen (Tylenol -) 325 mg PO Q6H PRN PRN Reason: PAIN Last Admin: 04/23/17 12:29 Dose: 325 mg Acetaminophen (Tylenol -) 650 mg PO Q6H PRN PRN Reason: PAIN Last Admin: 04/28/17 16:08 Dose: 650 mg Apixaban (Eliquis -) 5 mg PO BID [facility] Last Admin: 04/28/17 09:57 Dose: 5 mg Cinacalcet (Sensipar -) 60 mg PO DAILY [facility] Last Admin: 04/28/17 13:27 Dose: Not Given Clonidine (Catapres -) 0.3 mg PO TID [facility] Last Admin: 04/28/17 16:06 Dose: 0.3 mg Diphenhydramine HCl (Benadryl Injection -) 25 mg IVPB Q8H PRN PRN Reason: itching Last Admin: 04/26/17 14:01 Dose: 25 mg Diphenhydramine HCl (Benadryl -) 50 mg PO Q6H PRN PRN Reason: FOR ITCHING Last Admin: 04/28/17 16:06 Dose: 50 mg Gabapentin (Neurontin -) 200 mg PO TID [facility] Last Admin: 04/28/17 16:07 Dose: 200 mg Hydralazine HCl (Apresoline -) 75 mg PO TID [facility] Last Admin: 04/28/17 16:06 Dose: 75 mg Ibuprofen (Motrin -) 400 mg PO Q6H PRN PRN Reason: FEVER Last Admin: 04/19/17 01:37 Dose: 400 mg Insulin Aspart (Novolog Vial Sliding Scale -) 1 vial SQ ACHS [facility] PRN Reason: Protocol Last Admin: 04/28/17 16:29 Dose: 6 unit Insulin Detemir (Levemir Vial) 16 units SQ BID@0700,2200 [facility] Last Admin: 04/28/17 06:55 Dose: 16 units Labetalol HCl (Normodyne -) 400 mg PO TID [facility] Last Admin: 04/28/17 16:07 Dose: 400 mg Lidocaine HCl (Xylocaine 2% Viscous Oral -) 20 ml MM TIDAC [facility] Last Admin: 04/28/17 16:29 Dose: Not Given Losartan Potassium (Cozaar -) 100 mg PO DAILY [facility] Last Admin: 04/28/17 09:54 Dose: 100 mg Mupirocin (Bactroban 2% Ointment -) 1 applic TP DAILY [facility] Last Admin: 04/28/17 09:58 Dose: 1 applic Nifedipine (Procardia Xl -) 30 mg PO BID [facility] Oxycodone HCl (Roxicodone -) 10 mg PO Q6H PRN PRN Reason: PAIN LEVEL 6-10 Last Admin: 04/28/17 16:07 Dose: 10 mg Sevelamer Carbonate (Renvela -) 1,600 mg PO TIDCM [facility] Last Admin: 04/28/17 16:33 Dose: 1,600 mg Sodium Chloride ([place] Nasal [place] -) 2 spray NS BID PRN PRN Reason: NASAL CONGESTION Last Admin: 04/17/17 16:47 Dose: 2 sprays 26 year old woman with PMhx of ESRD on HD (MWF), Hypertension, DM Typw 1, PE on Eliqus who presented to the ED wit complaints of GUTIERRES, diarrhea, and left LE pain. #suspected Pelvic inflammation/fluid collection in LLE biopsy showed inflammation chronic/acute osteomylitis hip culture no growth foot culture grew MRSA continue Vanco with dialysis vanco level therapeutic today #ESRD on HD with fluid overload tolerating dialysis well #Hypertension continue Clonidine, Labetalol, Hydralazine, Nifedpine goal BP < 140/90 Nathan Vo DO
[2017-04-29] MEDS: cloNIDine HCL 0.1 MG TABLET PO SCH ×3 (06:35→23:29)
[2017-04-29] MEDS: hydrALAZINE HCL 50 MG TABLET (FP) PO SCH ×3 (06:36→23:30)
[2017-04-29] MEDS: LABETALOL HCL 200 MG TABLET (FP) PO SCH ×3 (06:36→23:31)
[2017-04-29] MEDS: GABAPENTIN 100 MG CAPSULE (FP) PO SCH ×3 (06:36→23:30)
[2017-04-29] MEDS: diphenhydrAMINE HCL 25 MG CAPSULE (FP) PO PRN ×3 (06:36→23:28)
[2017-04-29] MEDS: ACETAMINOPHEN 325 MG TABLET (FP) PO PRN ×3 (06:37→23:28)
[2017-04-29] MEDS: oxyCODONE HCL 5 MG TABLET PO PRN ×3 (06:37→23:28)
[2017-04-29] MEDS: LIDOCAINE VISCOUS 2% ORAL/TOP 20 ML UNIT-DOSE CUP MM SCH ×3 (06:38→16:33)
[2017-04-29] MEDS: INSULIN DETEMIR 100 UNITS/ML MDV SQ SCH ×2 (06:40→23:40)
[2017-04-29] MEDS: INSULIN SLIDING SCALE (NOVOLOG) 1 VIAL SQ SCH ×4 (06:41→23:36)
[2017-04-29] MEDS ORDERED: INSULIN (NOVOLOG) ASPART 100 UNITS/ML 10ML VIAL ONE ×2 (07:08→11:03)
[2017-04-29 07:58] LABS: BASO % 1.2 % (0-2.0); EOS % 2.3 % (0-4.5); HEMATOCRIT 27.3 % (32.4-45.2); HEMOGLOBIN 8.4 GM/dL (10.7-15.3); LYMPH % 12.1 % (8-40); MCHC 30.9 g/dl (32.0-36.0); MEAN CELL VOLUME 87.4 fl (80-96); MEAN PLT VOLUME 8.7 fl (7.5-11.1); MONO % 9.3 % (3.8-10.2); NEUT % 75.1 % (42.8-82.8); PLATELET COUNT 511 K/MM3 (134-434); RBC 3.13 M/mm3 (3.60-5.2); RDW 17.2 % (11.6-15.6); WHITE BLOOD COUNT 12.7 K/mm3 (4.0-10.0)
[2017-04-29] MEDS: SEVELAMER CARBONATE 800 MG TAB (FP) PO SCH ×3 (07:59→16:36)
[2017-04-29 08:13] LABS: ALBUMIN 2.9 g/dl (3.4-5.0); ANION GAP 12 (8-16); BLOOD UREA NITROGEN 53 mg/dL (7-18); CALCIUM 9.3 mg/dL (8.5-10.1); CHLORIDE 96 mmol/L (98-107); CO2 29 mmol/L (21-32); GLUCOSE,RANDOM 201 mg/dL (74-106); POTASSIUM 4.4 mmol/L (3.5-5.1); SODIUM 137 mmol/L (136-145)
[2017-04-29 08:30] LABS: SGOT/AST 71 U/L (15-37); SGPT/ALT 67 U/L (12-78); TOT PROT 8.8 g/dl (6.4-8.2)
[2017-04-29 08:31] LABS: ALK PHOS 2164 U/L (45-117)
[2017-04-29] MEDS ORDERED: PT OWN MED DRAWER 7, Y5N ONE ×2 (10:00→14:37)
[2017-04-29] MEDS: NIFEdipine E.R. 30 MG TABLET (FP) PO SCH ×4 (10:01→23:30)
[2017-04-29] MEDS: APIXABAN 5 MG TABLET PO SCH ×2 (10:01→23:30)
[2017-04-29] MEDS: MUPIROCIN 2% TOPICAL OINTMENT 22 GM TUBE TP SCH (10:01)
[2017-04-29] MEDS: LOSARTAN POTASSIUM 50 MG TABLET (FP) PO SCH (10:01)
[2017-04-29] MEDS: CINACALCET HCL 30 MG TAB (FP) PO SCH (10:02)
--- NOTE | 2017-04-29 15:55 | PN ---
Progress Note (short form) - Note Progress Note: Renal follow up for ESRD on HD Pt seen and examined at the bedside no acute complaints no fevers, chills no sob, chest pain s/p dialysis yesterday Vital Signs Temperature 98 F 04/29/17 13:44 Pulse Rate 89 04/29/17 13:44 Respiratory Rate 20 04/29/17 13:44 Blood Pressure 123/74 04/29/17 13:44 O2 Sat by Pulse Oximetry (%) 96 04/29/17 09:00 Intake & Output 04/26/17 04/27/17 04/28/17 04/29/17 23:59 23:59 23:59 23:59 Intake Total 450 740 500 700 Balance 450 740 500 700 Weight 67.676 kg NAD + edema in LE CBC, BMP 04/29/17 06:00 04/29/17 06:00 Current Medications Acetaminophen (Tylenol -) 325 mg PO Q6H PRN PRN Reason: PAIN Last Admin: 04/23/17 12:29 Dose: 325 mg Acetaminophen (Tylenol -) 650 mg PO Q6H PRN PRN Reason: PAIN Last Admin: 04/29/17 13:51 Dose: 650 mg Apixaban (Eliquis -) 5 mg PO BID [facility] Last Admin: 04/29/17 10:01 Dose: 5 mg Cinacalcet (Sensipar -) 60 mg PO DAILY [facility] Last Admin: 04/29/17 10:02 Dose: Not Given Clonidine (Catapres -) 0.3 mg PO TID [facility] Last Admin: 04/29/17 13:49 Dose: 0.3 mg Diphenhydramine HCl (Benadryl Injection -) 25 mg IVPB Q8H PRN PRN Reason: itching Last Admin: 04/26/17 14:01 Dose: 25 mg Diphenhydramine HCl (Benadryl -) 50 mg PO Q6H PRN PRN Reason: FOR ITCHING Last Admin: 04/29/17 13:50 Dose: 50 mg Gabapentin (Neurontin -) 200 mg PO TID [facility] Last Admin: 04/29/17 13:49 Dose: 200 mg Hydralazine HCl (Apresoline -) 75 mg PO TID [facility] Last Admin: 04/29/17 13:49 Dose: 75 mg Ibuprofen (Motrin -) 400 mg PO Q6H PRN PRN Reason: FEVER Last Admin: 04/19/17 01:37 Dose: 400 mg Insulin Aspart (Novolog Vial Sliding Scale -) 1 vial SQ ACHS [facility] PRN Reason: Protocol Last Admin: 04/29/17 11:32 Dose: 2 unit Insulin Detemir (Levemir Vial) 16 units SQ BID@0700,2200 [facility] Last Admin: 04/29/17 06:40 Dose: 16 units Labetalol HCl (Normodyne -) 400 mg PO TID [facility] Last Admin: 04/29/17 13:50 Dose: 400 mg Lidocaine HCl (Xylocaine 2% Viscous Oral -) 20 ml MM TIDAC [facility] Last Admin: 04/29/17 11:12 Dose: Not Given Losartan Potassium (Cozaar -) 100 mg PO DAILY [facility] Last Admin: 04/29/17 10:01 Dose: 100 mg Mupirocin (Bactroban 2% Ointment -) 1 applic TP DAILY [facility] Last Admin: 04/29/17 10:01 Dose: 1 applic Nifedipine (Procardia Xl -) 30 mg PO BID [facility] Last Admin: 04/29/17 10:10 Dose: Not Given Oxycodone HCl (Roxicodone -) 10 mg PO Q6H PRN PRN Reason: PAIN LEVEL 6-10 Last Admin: 04/29/17 13:51 Dose: 10 mg Sevelamer Carbonate (Renvela -) 1,600 mg PO TIDCM [facility] Last Admin: 04/29/17 11:12 Dose: 1,600 mg Sodium Chloride ([place] Nasal [place] -) 2 spray NS BID PRN PRN Reason: NASAL CONGESTION Last Admin: 04/17/17 16:47 Dose: 2 sprays 26 year old woman with PMhx of ESRD on HD (MWF), Hypertension, DM Typw 1, PE on Eliqus who presented to the ED wit complaints of GUTIERRES, diarrhea, and left LE pain. #suspected Pelvic inflammation/fluid collection in LLE will continue Vanco dosed by levels on dialysis continue ibuprofen as needed for pain continue Sensipar for management of secondary hyperparathyroidism #ESRD on HD with fluid overload next dialysis tomorrow pt is non-complaint with fluid and salt restrictions #Hypertension continue Clonidine, Labetalol, Hydralazine, Nifedpine goal BP < 140/90 discharge planning as per primary Nathan Vo DO
--- NOTE | 2017-04-29 16:34 | PN ---
Physical Exam: SUBJECTIVE: Patient seen and examined. She feels well, she does not like to take when BP low, feels dizzy all day, but she is not refusing OBJECTIVE: Vital Signs Period Temp Pulse Resp BP Sys/Ames Pulse Ox Last 24 Hr 98 F-998.2 F 87-96 18-20 117-171/60-105 96-98 PE Neuro: alert, awake, cn 2-12intact Pulm: CTAB nc CV: s1 s2 rrr Abd: s nt nd + bs Ext: RLE edema >L wound r foot cdi Laboratory Results - last 24 hr 04/28/17 04/28/17 04/29/17 16:28 22:35 06:00 WBC 12.7 H RBC 3.13 L Hgb 8.4 L Hct 27.3 L MCV 87.4 MCH 27.0 MCHC 30.9 L RDW 17.2 H Plt Count 511 H MPV 8.7 Neutrophils % 75.1 Lymphocytes % 12.1 D Monocytes % 9.3 Eosinophils % 2.3 Basophils % 1.2 D Sodium Potassium Chloride Carbon Dioxide Anion Gap BUN Creatinine Creat Clearance w eGFR POC Glucometer 255 267 Random Glucose Calcium Total Bilirubin AST ALT Alkaline Phosphatase Total Protein Albumin 04/29/17 04/29/17 04/29/17 06:00 06:33 11:30 WBC RBC Hgb Hct MCV MCH MCHC RDW Plt Count MPV Neutrophils % Lymphocytes % Monocytes % Eosinophils % Basophils % Sodium 137 Potassium 4.4 Chloride 96 L Carbon Dioxide 29 Anion Gap 12 BUN 53 H Creatinine 4.0 H Creat Clearance w eGFR 13.43 POC Glucometer 209 155 Random Glucose 201 H Calcium 9.3 Total Bilirubin 1.0 AST 71 H ALT 67 Alkaline Phosphatase 2164 H Total Protein 8.8 H Albumin 2.9 L Active Medications Generic Name Dose Route Start Last Admin Trade Name Freq PRN Reason Stop Dose Admin Acetaminophen 325 mg 04/12/17 22:29 04/23/17 12:29 Tylenol - PO 325 mg Q6H PRN Administration PAIN Acetaminophen 650 mg 04/13/17 09:42 04/29/17 13:51 Tylenol - PO 650 mg Q6H PRN Administration PAIN Apixaban 5 mg 04/25/17 10:00 04/29/17 10:01 Eliquis - PO 5 mg BID ROSA MARIA Administration Cinacalcet 60 mg 04/16/17 13:15 04/29/17 10:02 Sensipar - PO Not Given DAILY [facility] Clonidine 0.3 mg 04/12/17 22:30 04/29/17 13:49 Catapres - PO 0.3 mg TID ROSA MARIA Administration Diphenhydramine HCl 25 mg 04/25/17 14:01 04/26/17 14:01 Benadryl Injection - IVPB 25 mg Q8H PRN Administration itching Diphenhydramine HCl 50 mg 04/26/17 17:32 04/29/17 13:50 Benadryl - PO 50 mg Q6H PRN Administration FOR ITCHING Epoetin Abiel 20,000 unit 04/30/17 06:00 Procrit - IVPUSH 04/30/17 06:01 ONCE ONE Gabapentin 200 mg 04/12/17 22:30 04/29/17 13:49 Neurontin - PO 200 mg TID ROSA MARIA Administration Hydralazine HCl 75 mg 04/17/17 22:00 04/29/17 13:49 Apresoline - PO 75 mg TID [facility] Administration Ibuprofen 400 mg 04/17/17 11:56 04/19/17 01:37 Motrin - PO 400 mg Q6H PRN Administration FEVER Insulin Aspart 1 vial 04/23/17 10:45 04/29/17 11:32 Novolog Vial Sliding Scale - SQ 2 unit ACHS [facility] Administration Protocol Insulin Detemir 16 units 04/24/17 22:00 04/29/17 06:40 Levemir Vial SQ 16 units BID@0700,2200 [facility] Administration Labetalol HCl 400 mg 04/12/17 22:30 04/29/17 13:50 Normodyne - PO 400 mg TID [facility] Administration Lidocaine HCl 20 ml 04/14/17 17:30 04/29/17 11:12 Xylocaine 2% Viscous Oral - MM Not Given TIDAC [facility] Losartan Potassium 100 mg 04/16/17 10:42 04/29/17 10:01 Cozaar - PO 100 mg DAILY [facility] Administration Mupirocin 1 applic 04/28/17 10:00 04/29/17 10:01 Bactroban 2% Ointment - TP 1 applic DAILY [facility] Administration Nifedipine 30 mg 04/28/17 22:00 04/29/17 10:10 Procardia Xl - PO Not Given BID ROSA MARIA Oxycodone HCl 10 mg 04/28/17 08:46 04/29/17 13:51 Roxicodone - PO 10 mg Q6H PRN Administration PAIN LEVEL 6-10 Paricalcitol 2 mcg 04/30/17 09:00 Zemplar - IVPUSH 04/30/17 09:01 ONCE ONE Sevelamer Carbonate 1,600 mg 04/12/17 22:30 04/29/17 11:12 Renvela - PO 1,600 mg TIDCM ROSA MARIA Administration Sodium Chloride 2 spray 04/17/17 09:10 04/17/17 16:47 [place] Nasal [place] - NS 2 sprays BID PRN Administration NASAL CONGESTION Assessment: 26 year old female with a significant past medical history of ESRD, hypertension, diabetes, DVT, PE (on Eliquis), home oxygen dependent admitted with acute respiratory failure. Plan: 1. Acute Respiratory Failure - Resolved - Resumed home o2 2L 2. HTN - Increased procardia 30mg BID, - Losartan 100mg po daily - Labetolol 400mg TID - Hydralazine 75mg TID 3. ESRD - HD tomorrow then dc home 4. Acute on chronic pelvic infection - Biopsy with chronic/acute osteo - LLE fluid collection, hip culture no growth - Blood cultures with ngtd - Vancomycin with HD 5. Right lower extremity fluid collection Biopsy done, on Vanco, wound care 6. Facial cellulitis, resolved - Vancomycin 7. Right plantar abscess - s/p I&D 04/21 - Culture with presumptive MRSA, on Vanco with dialysis - Podiatry follow up with [facility] 8. Hx of DVT/PE - Eliquis 5mg po bid 9. Prophylaxis: DVT: Eliquis BID Dispo: - Home after HD Visit type - Emergency Visit Emergency Visit: Yes ED Registration Date: 04/12/17 Care time: The patient presented to the Emergency Department on the above date and was hospitalized for further evaluation of their emergent condition. - New Patient This patient is new to me today: Yes Date on this admission: 04/29/17 - Critical Care Critical Care patient: No
--- NOTE | 2017-04-29 17:01 | PN ---
Progress Note, Physician History of Present Illness: pulmonary alert,nad,-sob - Current Medication List Current Medications: Active Medications Acetaminophen (Tylenol -) 325 mg PO Q6H PRN PRN Reason: PAIN Last Admin: 04/23/17 12:29 Dose: 325 mg Acetaminophen (Tylenol -) 650 mg PO Q6H PRN PRN Reason: PAIN Last Admin: 04/29/17 13:51 Dose: 650 mg Apixaban (Eliquis -) 5 mg PO BID [facility] Last Admin: 04/29/17 10:01 Dose: 5 mg Cinacalcet (Sensipar -) 60 mg PO DAILY [facility] Last Admin: 04/29/17 10:02 Dose: Not Given Clonidine (Catapres -) 0.3 mg PO TID [facility] Last Admin: 04/29/17 13:49 Dose: 0.3 mg Diphenhydramine HCl (Benadryl Injection -) 25 mg IVPB Q8H PRN PRN Reason: itching Last Admin: 04/26/17 14:01 Dose: 25 mg Diphenhydramine HCl (Benadryl -) 50 mg PO Q6H PRN PRN Reason: FOR ITCHING Last Admin: 04/29/17 13:50 Dose: 50 mg Epoetin Abiel (Procrit -) 20,000 unit IVPUSH ONCE ONE Stop: 04/30/17 06:01 Gabapentin (Neurontin -) 200 mg PO TID [facility] Last Admin: 04/29/17 13:49 Dose: 200 mg Hydralazine HCl (Apresoline -) 75 mg PO TID [facility] Last Admin: 04/29/17 13:49 Dose: 75 mg Ibuprofen (Motrin -) 400 mg PO Q6H PRN PRN Reason: FEVER Last Admin: 04/19/17 01:37 Dose: 400 mg Insulin Aspart (Novolog Vial Sliding Scale -) 1 vial SQ ACHS [facility] PRN Reason: Protocol Last Admin: 04/29/17 16:36 Dose: 6 unit Insulin Detemir (Levemir Vial) 16 units SQ BID@0700,2200 [facility] Last Admin: 04/29/17 06:40 Dose: 16 units Labetalol HCl (Normodyne -) 400 mg PO TID [facility] Last Admin: 04/29/17 13:50 Dose: 400 mg Lidocaine HCl (Xylocaine 2% Viscous Oral -) 20 ml MM TIDAC [facility] Last Admin: 04/29/17 16:33 Dose: Not Given Losartan Potassium (Cozaar -) 100 mg PO DAILY [facility] Last Admin: 04/29/17 10:01 Dose: 100 mg Mupirocin (Bactroban 2% Ointment -) 1 applic TP DAILY [facility] Last Admin: 04/29/17 10:01 Dose: 1 applic Nifedipine (Procardia Xl -) 30 mg PO BID [facility] Last Admin: 04/29/17 10:10 Dose: Not Given Oxycodone HCl (Roxicodone -) 10 mg PO Q6H PRN PRN Reason: PAIN LEVEL 6-10 Last Admin: 04/29/17 13:51 Dose: 10 mg Paricalcitol (Zemplar -) 2 mcg IVPUSH ONCE ONE Stop: 04/30/17 09:01 Sevelamer Carbonate (Renvela -) 1,600 mg PO TIDCM [facility] Last Admin: 04/29/17 16:36 Dose: 1,600 mg Sodium Chloride ([place] Nasal [place] -) 2 spray NS BID PRN PRN Reason: NASAL CONGESTION Last Admin: 04/17/17 16:47 Dose: 2 sprays - Objective Vital Signs: Vital Signs Temperature 98 F 04/29/17 13:44 Pulse Rate 89 04/29/17 13:44 Respiratory Rate 20 04/29/17 13:44 Blood Pressure 123/74 04/29/17 13:44 O2 Sat by Pulse Oximetry (%) 96 04/29/17 09:00 Constitutional: Yes: Well Nourished, Calm Eyes: Yes: WNL HENT: Yes: WNL Neck: Yes: WNL Cardiovascular: Yes: Regular Rate and Rhythm, S1, S2 Respiratory: Yes: CTA Bilaterally Gastrointestinal: Yes: Normal Bowel Sounds, Soft Extremities: Yes: WNL Edema: Yes Labs: CBC, BMP 04/29/17 06:00 04/29/17 06:00 INR, PTT INR 1.13 (0.82-1.09) 04/12/17 16:48 Problem List - Problems (1) Shortness of breath Code(s): R06.02 - SHORTNESS OF BREATH (2) Weakness Code(s): R53.1 - WEAKNESS (3) DKA, type 1 Code(s): E10.10 - TYPE 1 DIABETES MELLITUS WITH KETOACIDOSIS WITHOUT COMA (4) Diabetic foot infection Code(s): E11.69 - TYPE 2 DIABETES MELLITUS WITH OTHER SPECIFIED COMPLICATION; L08.9 - LOCAL INFECTION OF THE SKIN AND SUBCUTANEOUS TISSUE, UNSP (5) Fluid overload Code(s): E87.70 - FLUID OVERLOAD, UNSPECIFIED Qualifiers: Hypervolemia type: unspecified Qualified Code(s): E87.70 - Fluid overload, unspecified (6) History of pulmonary embolus (PE) Code(s): Z86.711 - PERSONAL HISTORY OF PULMONARY EMBOLISM (7) Leg pain, right Code(s): M79.604 - PAIN IN RIGHT LEG (8) Myositis Code(s): M60.9 - MYOSITIS, UNSPECIFIED (9) Osteomyelitis Code(s): M86.9 - OSTEOMYELITIS, UNSPECIFIED Qualifiers: Osteomyelitis location: foot Laterality: right (10) Oxygen dependent Code(s): Z99.81 - DEPENDENCE ON SUPPLEMENTAL OXYGEN (11) Pulmonary HTN Code(s): I27.20 - PULMONARY HYPERTENSION, UNSPECIFIED (12) Swelling of right lower extremity Code(s): M79.89 - OTHER SPECIFIED SOFT TISSUE DISORDERS (13) ESRD (end stage renal disease) on dialysis Code(s): N18.6 - END STAGE RENAL DISEASE; Z99.2 - DEPENDENCE ON RENAL DIALYSIS (14) HTN (hypertension) Code(s): I10 - ESSENTIAL (PRIMARY) HYPERTENSION Qualifiers: Hypertension type: renovascular hypertension Qualified Code(s): I15.0 - Renovascular hypertension Assessment/Plan IMP ESRD ON HD FLUID OVERLOAD HYPOXEMIA PULMONARY HTN LIKELY PELVIC OSTEO H/O PE H/O R ATRIAL MYXOMA S/P ESECTION HTN DM PLAN HD PER RENAL O2 INHALED BRONCHODILATORS PRN CHECK O2 SAT AT REST AND EXERCISE ON RA NOCTURAL O2 SAT MONITORING PFTS OUTPATIENT DR BECERRA Problem List - Problems (1) Shortness of breath Code(s): R06.02 - SHORTNESS OF BREATH (2) Weakness Code(s): R53.1 - WEAKNESS (3) DKA, type 1 Code(s): E10.10 - TYPE 1 DIABETES MELLITUS WITH KETOACIDOSIS WITHOUT COMA (4) Diabetic foot infection Code(s): E11.69 - TYPE 2 DIABETES MELLITUS WITH OTHER SPECIFIED COMPLICATION; L08.9 - LOCAL INFECTION OF THE SKIN AND SUBCUTANEOUS TISSUE, UNSP (5) Fluid overload Code(s): E87.70 - FLUID OVERLOAD, UNSPECIFIED Qualifiers: Hypervolemia type: unspecified Qualified Code(s): E87.70 - Fluid overload, unspecified (6) History of pulmonary embolus (PE) Code(s): Z86.711 - PERSONAL HISTORY OF PULMONARY EMBOLISM (7) Leg pain, right Code(s): M79.604 - PAIN IN RIGHT LEG (8) Myositis Code(s): M60.9 - MYOSITIS, UNSPECIFIED (9) Osteomyelitis Code(s): M86.9 - OSTEOMYELITIS, UNSPECIFIED Qualifiers: Osteomyelitis location: foot Laterality: right Qualified Code(s): M86.171 - Other acute osteomyelitis, right ankle and foot (10) Oxygen dependent Code(s): Z99.81 - DEPENDENCE ON SUPPLEMENTAL OXYGEN (11) Pulmonary HTN Code(s): I27.20 - PULMONARY HYPERTENSION, UNSPECIFIED (12) Swelling of right lower extremity Code(s): M79.89 - OTHER SPECIFIED SOFT TISSUE DISORDERS (13) ESRD (end stage renal disease) on dialysis Code(s): N18.6 - END STAGE RENAL DISEASE; Z99.2 - DEPENDENCE ON RENAL DIALYSIS (14) HTN (hypertension) Code(s): I10 - ESSENTIAL (PRIMARY) HYPERTENSION Qualifiers: Hypertension type: renovascular hypertension Qualified Code(s): I15.0 - Renovascular hypertension
[2017-04-30] MEDS: LIDOCAINE VISCOUS 2% ORAL/TOP 20 ML UNIT-DOSE CUP MM SCH ×3 (05:59→16:59)
[2017-04-30] MEDS: hydrALAZINE HCL 50 MG TABLET (FP) PO SCH ×3 (06:46→21:07)
[2017-04-30] MEDS: GABAPENTIN 100 MG CAPSULE (FP) PO SCH ×3 (06:46→21:06)
[2017-04-30] MEDS: cloNIDine HCL 0.1 MG TABLET PO SCH ×3 (06:46→21:06)
[2017-04-30] MEDS: LABETALOL HCL 200 MG TABLET (FP) PO SCH ×3 (06:47→21:06)
[2017-04-30] MEDS: INSULIN DETEMIR 100 UNITS/ML MDV SQ SCH ×2 (06:48→21:08)
[2017-04-30] MEDS: INSULIN SLIDING SCALE (NOVOLOG) 1 VIAL SQ SCH ×4 (06:49→21:08)
[2017-04-30] MEDS: ACETAMINOPHEN 325 MG TABLET (FP) PO PRN ×2 (06:51→14:51)
[2017-04-30] MEDS: diphenhydrAMINE HCL 25 MG CAPSULE (FP) PO PRN ×3 (06:52→21:05)
[2017-04-30] MEDS: oxyCODONE HCL 5 MG TABLET PO PRN ×2 (06:54→14:52)
[2017-04-30] MEDS: SEVELAMER CARBONATE 800 MG TAB (FP) PO SCH ×3 (08:29→17:36)
[2017-04-30] MEDS: NIFEdipine E.R. 30 MG TABLET (FP) PO SCH ×2 (10:00→21:06)
[2017-04-30] MEDS: LOSARTAN POTASSIUM 50 MG TABLET (FP) PO SCH (10:00)
[2017-04-30 10:42] LABS: ANION GAP 14 (8-16); BLOOD UREA NITROGEN 88 mg/dL (7-18); CALCIUM 8.6 mg/dL (8.5-10.1); CHLORIDE 98 mmol/L (98-107); CO2 23 mmol/L (21-32); GLUCOSE,RANDOM 92 mg/dL (74-106); POTASSIUM 4.7 mmol/L (3.5-5.1); SODIUM 135 mmol/L (136-145)
[2017-04-30 10:59] LABS: BILIRUBIN,TOTAL 1.1 mg/dL (0.2-1.0); CREATININE 5.6 mg/dL (0.55-1.02); SGOT/AST 97 U/L (15-37); SGPT/ALT 79 U/L (12-78); TOT PROT 8.4 g/dl (6.4-8.2)
[2017-04-30] MEDS ORDERED: PARICALCITOL 5 MCG/ML VIAL IVPUSH ONE (11:00)
[2017-04-30] MEDS ORDERED: EPOETIN ALFA 20,000 UNIT/1 ML VIAL IVPUSH ONE (11:00)
[2017-04-30] MEDS ORDERED: PT OWN MED DRAWER 7, Y5N ONE ×2 (11:02→20:50)
[2017-04-30 11:34] LABS: ALK PHOS 2321 U/L (45-117)
--- NOTE | 2017-04-30 14:14 | PN ---
Progress Note (short form) - Note Progress Note: PULMONARY HAS RETURNED FROM HD FEELS WELL WANTS TO GO HOME NO SOB/HAS HOME O2 VSS ANICTERIC DIMINISHED AT BASES S1S2 BS+ SOFT 2+ EDEMA LABS/MEDS/NOTES/IMAGES REVIEWED IMP ESRD ON HD FLUID OVERLOAD HYPOXEMIA PULMONARY HTN H/O PE H/O R ATRIAL MYXOMA S/P RESECTION HTN DM PLAN HD PER RENAL O2 INHALED BRONCHODILATORS PRN CHECK O2 SAT AT REST AND EXERCISE ON RA NOCTURAL O2 SAT MONITORING PFTS OUTPATIENT CONTINUE TREATMENT IN OUTPATIENT SETTING Juan GRAHAM MD
[2017-04-30] MEDS: APIXABAN 5 MG TABLET PO SCH ×2 (14:45→21:07)
[2017-04-30] MEDS: CINACALCET HCL 30 MG TAB (FP) PO SCH (14:48)
[2017-04-30 14:58] VITALS: TEMP 98.7
[2017-04-30 15:44] LABS: CREATININE 2.3 mg/dL (0.55-1.02)
--- NOTE | 2017-04-30 15:48 | PN ---
Progress Note (short form) - Note Progress Note: Renal follow up for ESRD on HD Pt seen and examined during dialysis BP 142/86 goal UF is 3.5L pt w/o complaints for discharge today Vital Signs Temperature 98.7 F 04/30/17 14:00 Pulse Rate 94 H 04/30/17 14:00 Respiratory Rate 20 04/30/17 14:00 Blood Pressure 144/90 04/30/17 14:00 O2 Sat by Pulse Oximetry (%) 96 04/30/17 09:00 Intake & Output 04/27/17 04/28/17 04/29/17 04/30/17 23:59 23:59 23:59 23:59 Intake Total 740 500 700 Balance 740 500 700 Weight 67.676 kg NAD + edema in LE CBC, BMP 04/29/17 06:00 04/30/17 13:45 Current Medications Acetaminophen (Tylenol -) 325 mg PO Q6H PRN PRN Reason: PAIN Last Admin: 04/23/17 12:29 Dose: 325 mg Acetaminophen (Tylenol -) 650 mg PO Q6H PRN PRN Reason: PAIN Last Admin: 04/30/17 14:51 Dose: 650 mg Apixaban (Eliquis -) 5 mg PO BID [facility] Last Admin: 04/30/17 14:45 Dose: 5 mg Cinacalcet (Sensipar -) 60 mg PO DAILY [facility] Last Admin: 04/30/17 14:48 Dose: Not Given Clonidine (Catapres -) 0.3 mg PO TID [facility] Last Admin: 04/30/17 14:44 Dose: 0.3 mg Diphenhydramine HCl (Benadryl Injection -) 25 mg IVPB Q8H PRN PRN Reason: itching Last Admin: 04/26/17 14:01 Dose: 25 mg Diphenhydramine HCl (Benadryl -) 50 mg PO Q6H PRN PRN Reason: FOR ITCHING Last Admin: 04/30/17 14:53 Dose: 50 mg Gabapentin (Neurontin -) 200 mg PO TID [facility] Last Admin: 04/30/17 14:44 Dose: 200 mg Hydralazine HCl (Apresoline -) 75 mg PO TID [facility] Last Admin: 04/30/17 14:45 Dose: 75 mg Vancomycin HCl 1,000 mg/ (Dextrose) 250 mls @ 166.667 mls/hr IVPB ONCE ONE PRN Reason: Protocol Stop: 04/30/17 17:29 Ibuprofen (Motrin -) 400 mg PO Q6H PRN PRN Reason: FEVER Last Admin: 04/19/17 01:37 Dose: 400 mg Insulin Aspart (Novolog Vial Sliding Scale -) 1 vial SQ ACHS [facility] PRN Reason: Protocol Last Admin: 04/30/17 11:00 Dose: Not Given Insulin Detemir (Levemir Vial) 16 units SQ BID@0700,2200 [facility] Last Admin: 04/30/17 06:48 Dose: 16 units Labetalol HCl (Normodyne -) 400 mg PO TID [facility] Last Admin: 04/30/17 14:44 Dose: 400 mg Lidocaine HCl (Xylocaine 2% Viscous Oral -) 20 ml MM TIDAC [facility] Last Admin: 04/30/17 14:35 Dose: Not Given Losartan Potassium (Cozaar -) 100 mg PO DAILY [facility] Last Admin: 04/30/17 10:00 Dose: Not Given Mupirocin (Bactroban 2% Ointment -) 1 applic TP DAILY [facility] Last Admin: 04/29/17 10:01 Dose: 1 applic Nifedipine (Procardia Xl -) 30 mg PO BID [facility] Last Admin: 04/30/17 10:00 Dose: Not Given Oxycodone HCl (Roxicodone -) 10 mg PO Q6H PRN PRN Reason: PAIN LEVEL 6-10 Last Admin: 04/30/17 14:52 Dose: 10 mg Sevelamer Carbonate (Renvela -) 1,600 mg PO TIDCM [facility] Last Admin: 04/30/17 12:00 Dose: Not Given Sodium Chloride ([place] Nasal [place] -) 2 spray NS BID PRN PRN Reason: NASAL CONGESTION Last Admin: 04/17/17 16:47 Dose: 2 sprays 26 year old woman with PMhx of ESRD on HD (MWF), Hypertension, DM Typw 1, PE on Eliqus who presented to the ED wit complaints of GUTIERRES, diarrhea, and left LE pain. #suspected Pelvic inflammation/fluid collection in LLE Vanco with HD as per ID recommendations #ESRD on HD with fluid overload tolerating dialysis stressed importance of fluid and salt restriction #Hypertension continue Clonidine, Labetalol, Hydralazine, Nifedpine goal BP < 140/90 discharge planning as per primary Nathan Vo DO
--- NOTE | 2017-04-30 15:58 | DS ---
Physical Examination Vital Signs: Vital Signs Temperature 98.7 F 04/30/17 14:00 Pulse Rate 94 H 04/30/17 14:00 Respiratory Rate 20 04/30/17 14:00 Blood Pressure 144/90 04/30/17 14:00 O2 Sat by Pulse Oximetry (%) 96 04/30/17 09:00 Labs: CBC, BMP 04/29/17 06:00 04/30/17 13:45 Discharge Summary Reason For Visit: ACUTE RESPIRATORY FAILURE Current Active Problems Hyponatremia (Resolved) Shortness of breath (resolved) Weakness (Acute) Hospital Course: Patient discharged home with VNS Discussed with Dr. Fernandez will need Vancomycin 500mg IVPB with HD x6 weeks. Called and informed Dr. Vo (android developer) Given 1g Vancomycin prior to discharge per Dr. Fernandez. Condition: Fair - Instructions Referrals: Edna Calero MD [Primary Care Provider] - - Home Medications Comprehensive Discharge Medication List: Ambulatory Orders Gabapentin 200 mg PO TID 03/11/16 Sevelamer Carbonate [Renvela -] 1,600 mg PO TIDCM #60 tab 07/14/16 Acetaminophen [Tylenol .Regular Strength -] 325 mg PO Q6H PRN #0 tablet Insulin Lispro [Humalog Kwikpen U-100] See Protocol SQ TID 12/21/16 Losartan Potassium [Cozaar -] 100 mg PO DAILY 12/21/16 Insulin (Levemir) [Levemir Flexpen -] 15 units SQ BID #5 pen 12/24/16 Clonidine HCl [Catapres -] 0.3 mg PO TID tablet 12/26/16 Labetalol HCl [Normodyne -] 400 mg PO TID #60 tablet 12/26/16 Hydralazine HCl [Apresoline -] 50 mg PO TID #60 tablet 01/12/17 Apixaban [Eliquis -] 2.5 mg PO BID #60 tablet 03/06/17 Buspirone HCl [Buspar -] 10 mg PO TID PRN 04/12/17 - Discharge Referral Referred to [facility] No
[2017-04-30] MEDS ORDERED: VANCOMYCIN 1,000 MG in DEXTROSE 5%-WATER - 250 ML IVPB ONE (16:00)
--- NOTE | 2017-04-30 16:45 | PN ---
Progress Note, Physician History of Present Illness: No complaints S/P I&D R foot soft tissue abscess Foot wound c/s MRSA Pelvic bone bx / asp cultures no growth Bx c/w osteomyelitis Discussed with pathologist No fever/ chills L nasal swelling resolved - Current Medication List Current Medications: Active Medications Acetaminophen (Tylenol -) 325 mg PO Q6H PRN PRN Reason: PAIN Last Admin: 04/23/17 12:29 Dose: 325 mg Acetaminophen (Tylenol -) 650 mg PO Q6H PRN PRN Reason: PAIN Last Admin: 04/30/17 14:51 Dose: 650 mg Apixaban (Eliquis -) 5 mg PO BID [facility] Last Admin: 04/30/17 14:45 Dose: 5 mg Cinacalcet (Sensipar -) 60 mg PO DAILY [facility] Last Admin: 04/30/17 14:48 Dose: Not Given Clonidine (Catapres -) 0.3 mg PO TID [facility] Last Admin: 04/30/17 14:44 Dose: 0.3 mg Diphenhydramine HCl (Benadryl Injection -) 25 mg IVPB Q8H PRN PRN Reason: itching Last Admin: 04/26/17 14:01 Dose: 25 mg Diphenhydramine HCl (Benadryl -) 50 mg PO Q6H PRN PRN Reason: FOR ITCHING Last Admin: 04/30/17 14:53 Dose: 50 mg Gabapentin (Neurontin -) 200 mg PO TID [facility] Last Admin: 04/30/17 14:44 Dose: 200 mg Hydralazine HCl (Apresoline -) 75 mg PO TID [facility] Last Admin: 04/30/17 14:45 Dose: 75 mg Vancomycin HCl 1,000 mg/ (Dextrose) 250 mls @ 166.667 mls/hr IVPB ONCE ONE PRN Reason: Protocol Stop: 04/30/17 17:29 Ibuprofen (Motrin -) 400 mg PO Q6H PRN PRN Reason: FEVER Last Admin: 04/19/17 01:37 Dose: 400 mg Insulin Aspart (Novolog Vial Sliding Scale -) 1 vial SQ ACHS [facility] PRN Reason: Protocol Last Admin: 04/30/17 11:00 Dose: Not Given Insulin Detemir (Levemir Vial) 16 units SQ BID@0700,2200 [facility] Last Admin: 04/30/17 06:48 Dose: 16 units Labetalol HCl (Normodyne -) 400 mg PO TID [facility] Last Admin: 04/30/17 14:44 Dose: 400 mg Lidocaine HCl (Xylocaine 2% Viscous Oral -) 20 ml MM TIDAC [facility] Last Admin: 04/30/17 14:35 Dose: Not Given Losartan Potassium (Cozaar -) 100 mg PO DAILY [facility] Last Admin: 04/30/17 10:00 Dose: Not Given Mupirocin (Bactroban 2% Ointment -) 1 applic TP DAILY [facility] Last Admin: 04/29/17 10:01 Dose: 1 applic Nifedipine (Procardia Xl -) 30 mg PO BID [facility] Last Admin: 04/30/17 10:00 Dose: Not Given Oxycodone HCl (Roxicodone -) 10 mg PO Q6H PRN PRN Reason: PAIN LEVEL 6-10 Last Admin: 04/30/17 14:52 Dose: 10 mg Sevelamer Carbonate (Renvela -) 1,600 mg PO TIDCM [facility] Last Admin: 04/30/17 12:00 Dose: Not Given Sodium Chloride ([place] Nasal [place] -) 2 spray NS BID PRN PRN Reason: NASAL CONGESTION Last Admin: 04/17/17 16:47 Dose: 2 sprays - Objective Vital Signs: Vital Signs Temperature 98.7 F 04/30/17 14:00 Pulse Rate 94 H 04/30/17 14:00 Respiratory Rate 20 04/30/17 14:00 Blood Pressure 144/90 04/30/17 14:00 O2 Sat by Pulse Oximetry (%) 96 04/30/17 09:00 Constitutional: Yes: No Distress Eyes: Yes: Conjunctiva Clear Cardiovascular: Yes: Regular Rate and Rhythm, S1, S2 Respiratory: Yes: CTA Bilaterally Gastrointestinal: Yes: Normal Bowel Sounds, Soft. 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 Complete additional 30 calendar days of treatment. Maintain trough level approx 15. Thank you
[2017-04-30] MEDS: MUPIROCIN 2% TOPICAL OINTMENT 22 GM TUBE TP SCH (17:23)
[2017-04-30 20:28] VITALS: BP 180/104; PULSE 96
== END 2017-04-30 22:44 | disposition home health service (06) | DRG 628 ==
LOC: JER 14:49 → JERBED 20:38 → J4S 04-13 18:35 → J7W 04-25 03:55
PROVIDERS: ADMIT Internal Medicine; ATTEND Registered Nurse
PROC: 5A1D70Z Performance of Urinary Filtration, Intermittent, Less than 6 Hours Per Day (ICD-10-PCS; 2017-04-19)
PROC: 0QB33ZX Excision of Left Pelvic Bone, Percutaneous Approach, Diagnostic (ICD-10-PCS; principal; 2017-04-20)
PROC: 0J9Q0ZZ Drainage of Right Foot Subcutaneous Tissue and Fascia, Open Approach (ICD-10-PCS; 2017-04-21)
DX: E10.69 Type 1 diabetes mellitus with other specified complication (principal); J96.00 Acute respiratory failure, unspecified whether with hypoxia or hypercapnia; I50.31 Acute diastolic (congestive) heart failure; E87.2 Acidosis; E87.1 Hypo-osmolality and hyponatremia; I13.2 Hypertensive heart and chronic kidney disease with heart failure and with stage 5 chronic kidney disease, or end stage renal disease; M86.8X8 Other osteomyelitis, other site; A04.72 Enterocolitis due to Clostridium difficile, not specified as recurrent; D68.9 Coagulation defect, unspecified; L02.611 Cutaneous abscess of right foot; M86.18 Other acute osteomyelitis, other site; E10.22 Type 1 diabetes mellitus with diabetic chronic kidney disease; N18.6 End stage renal disease; Z99.81 Dependence on supplemental oxygen; Z99.2 Dependence on renal dialysis; Z86.718 Personal history of other venous thrombosis and embolism; Z86.711 Personal history of pulmonary embolism; Z79.01 Long term (current) use of anticoagulants; D64.9 Anemia, unspecified; Z79.4 Long term (current) use of insulin; D63.1 Anemia in chronic kidney disease; E83.39 Other disorders of phosphorus metabolism; E10.65 Type 1 diabetes mellitus with hyperglycemia; J32.8 Other chronic sinusitis; I27.20 Pulmonary hypertension, unspecified; J34.0 Abscess, furuncle and carbuncle of nose
CPT/HCPCS: 10022; 20225; 36415; 36600; 70450-TC; 70487-TC; 71045-TC; 72192-TC; 73523-TC; 73560-TC-LT; 73630-TC-RT; 73700-TC-RT; 76098-TC; 77012-TC; 80048; 80053; 82009; 82272; 82550; 82565; 82803; 82962; 83605; 83735; 83880; 83970; 84100; 84484; 84520; 84703; 85025; 85027; 85610; 85651; 85730; 86038; 86140; 86704; 86706; 86708; 86803; 87040; 87045; 87046; 87070; 87075; 87102; 87116; 87186; 87205; 87206; 87210; 87324; 87340; 87449; 87899; 88305-TC; 93005; 93010; 93970-TC; 94640; 94760; 94761; 97116-GP; 97161-GP; 99285-25; C1769; G0480; J0735; J0885; J1644

== ENCOUNTER 2017-05-12 22:32 | Inpatient (IN) | payer OTHER ==
--- NOTE | 2017-05-12 23:29 | PDOC ---
History of Present Illness - General History Source: Patient Exam Limitations: No Limitations - History of Present Illness Initial Comments: 05/12/17 23:43 The patient is a 26 year old female with a significant PMH of ESRD, HTN, and diabetes who presents to the emergency department with disorientation and difficulty focusing beginning approximately 2 days ago. The patient reports feeling like her vision is out of focus and she has been having trouble being attentive over the past 2 days which worsened prior to presentation, prompting her visit. The patient reports her mother did a finger stick earlier today and noted that the patients blood sugar was high. She reports she did not go to dialysis today because she was not feeling well. She denies headache. She denies chest pain or shortness of breath. Denies fever, chills, nausea, vomit, diarrhea and constipation. Denies dysuria, frequency, urgency and hematuria. Allergies: NKDA Past surgical history: Myxoma removal (2013). Cholecystectomy. Orthopedic surgery. Social history: No reported cigarette, alcohol, or drug use. PCP: Dr. Edna Calero <Jose Oliver - Last Filed: 05/13/17 00:41> - General History Source: Patient <Francisco Nur - Last Filed: 05/13/17 04:35> - General Stated Complaint: HIGH BP Time Seen by Provider: 05/12/17 23:29 Past History <Jose Oliver - Last Filed: 05/13/17 00:41> - Past Medical History Anemia: Yes Asthma: No Cancer: No Cardiac Disorders: No CVA: No COPD: No CHF: No DVT: No Diabetes: Yes (15 yrs Insulin dependent) Dialysis: Yes (M/W/F) Disorders: (ESRD for 6 yrs [facility]-) HTN: Yes Hypercholesterolemia: No Kidney Stones: (ESRD, Dialysis Mon, W, F, Left arm Fistula) Seizures: Yes (Several yrs ago, no medication) Thyroid Disease: No - Surgical History Abdominal Surgery: No Cardiac Surgery: Yes (myxoma removed 2013) Cholecystectomy: Yes Lung Surgery: No Neurologic Surgery: No Orthopedic Surgery: Yes (foot sx x2) - Immunization History Immunization Up to Date: Yes - Suicide/Smoking/Psychosocial Hx Smoking Status: No Smoking History: Current every day smoker Have you smoked in the past 12 months: Yes Number of Cigarettes Smoked Daily: 10 Hx Alcohol Use: No Drug/Substance Use Hx: No Substance Use Type: None Hx Substance Use Treatment: No <Francisco Nur - Last Filed: 05/13/17 04:35> - Past Medical History Allergies/Adverse Reactions: Allergies Allergy/AdvReac Type Severity Reaction Status Date / Time No Known Drug Allergies Allergy Verified 04/12/17 15:14 Home Medications: Ambulatory Orders Gabapentin 200 mg PO TID 03/11/16 Sevelamer Carbonate [Renvela -] 1,600 mg PO TIDCM #60 tab 07/14/16 Acetaminophen [Tylenol .Regular Strength -] 325 mg PO Q6H PRN #0 tablet Losartan Potassium [Cozaar -] 100 mg PO DAILY 12/21/16 Labetalol HCl [Normodyne -] 400 mg PO TID #60 tablet 12/26/16 cloNIDine HCL [Catapres -] 0.3 mg PO TID tablet 12/26/16 Apixaban [Eliquis -] 5 mg PO BID #60 tablet 04/30/17 Cinacalcet HCl [Sensipar -] 60 mg PO DAILY #30 tab 04/30/17 Diphenhydramine HCl [Benadryl Capsule -] 50 mg PO Q8H PRN capsule 04/30/17 Ibuprofen [Motrin -] 400 mg PO Q6H PRN tablet 04/30/17 Insulin (Levemir) [Levemir Vial] 16 units SQ BID@0700,2200 ml 04/30/17 Insulin Sliding Scale [Novolog Vial Sliding Scale -] 1 vial SQ ACHS units 04/30 Nifedipine ER [Procardia XL -] 30 mg PO BID #60 tab.er.24 04/30/17 Sodium Chloride Nasal [place] [[place] Nasal [place] -] 2 spray NS BID PRN #1 bot 04/30/17 hydrALAZINE HCL [Apresoline -] 75 mg PO TID #90 tablet 04/30/17 oxyCODONE HCL [Roxicodone -] 10 mg PO Q6H PRN #20 tablet MDD 40mg 04/30/17 Review of Systems - Review of Systems Able to Perform ROS?: Yes Comments:: 05/12/17 23:44 CONSTITUTIONAL: Absent: fever, chills, diaphoresis, generalized weakness, malaise, loss of appetite HEENT: Absent: rhinorrhea, nasal congestion, throat pain, throat swelling, difficulty swallowing, mouth swelling, ear pain, eye pain, visual Changes CARDIOVASCULAR: Absent: chest pain, syncope, palpitations, irregular heart rate, lightheadedness , peripheral edema RESPIRATORY: Absent: cough, shortness of breath, dyspnea with exertion, orthopnea, wheezing, stridor, hemoptysis GASTROINTESTINAL: Absent: abdominal pain, abdominal distension, nausea, vomiting, diarrhea, constipation, melena, hematochezia GENITOURINARY: Absent: dysuria, frequency, urgency, hesitancy, hematuria, flank pain, genital pain MUSCULOSKELETAL: Absent: myalgia, arthralgia, joint swelling SKIN: Absent: rash, itching, pallor HEMATOLOGIC/IMMUNOLOGIC: Absent: easy bleeding, easy bruising, lymphadenopathy, frequent infections ENDOCRINE: Absent: unexplained weight gain, unexplained weight loss, heat intolerance, cold intolerance NEUROLOGIC: (+) Disorientation. (+) Difficulty focusing. Absent: headache, focal weakness or paresthesias, dizziness, unsteady gait, seizure, mental status changes, bladder or bowel incontinence PSYCHIATRIC: Absent: anxiety, depression, suicidal or homicidal ideation, hallucinations. <Jose Oliver - Last Filed: 05/13/17 00:41> *Physical Exam - Physical Exam Comments: 05/12/17 23:44 GENERAL: (+) Mild distress. Well developed, well nourished. Awake and alert. HEENT: Normocephalic, atraumatic. PERRLA, EOMI. No conjunctival pallor. Sclera are non- icteric. Moist mucous membranes. Oropharynx is clear. NECK: Supple. Full ROM. No JVD. Carotid pulses 2+ and symmetric, without bruits. No thyromegaly. No lymphadenopathy. CARDIOVASCULAR: (+) Tachycardic. Regular rhythm. No murmurs, rubs, or gallops. Distal pulses are 2+ and symmetric. PULMONARY: No evidence of respiratory distress. Lungs clear to auscultation bilaterally. No wheezing, rales or rhonchi. ABDOMINAL: (+) Slightly obese. Soft. Non-tender. Non-distended. No rebound or guarding. No organomegaly. Normoactive bowel sounds. MUSCULOSKELETAL Normal range of motion at all joints. No bony deformities or tenderness. No CVA tenderness. EXTREMITIES: No cyanosis. No clubbing. No edema. No calf tenderness. SKIN: Warm and dry. Normal capillary refill. No rashes. No jaundice. NEUROLOGICAL: Alert, awake, appropriate. Cranial nerves 2-12 intact. No deficits to light touch and temperature in face, upper extremities and lower extremities. No motor deficits in the in face, upper extremities and lower extremities. Normoreflexic in the upper and lower extremities. Normal speech. Toes are downgoing bilaterally. Gait is normal without ataxia. PSYCHIATRIC: Cooperative. Good eye contact. Appropriate mood and affect. <Jose Oliver - Last Filed: 05/13/17 00:41> Heart Score/ECG Review #1 05/13/17 00:41 Vent rate 88 bpm Normal sinus rhythm Possible anterior infarct, age undetermined Abnormal ECG <Jose Oliver - Last Filed: 05/13/17 00:41> ED Treatment Course - LABORATORY CBC & Chemistry Diagram: 05/13/17 00:01 05/13/17 00:01 <Jose Oliver - Last Filed: 05/13/17 00:41> - LABORATORY CBC & Chemistry Diagram: 05/13/17 00:01 05/13/17 00:01 <Francisco Nur - Last Filed: 05/13/17 04:35> Medical Decision Making - Medical Decision Making 05/12/17 23:40 Dr. Nur: The scribe's documentation has been prepared under my direction and personally reviewed by me in its entirery. I confirm that the note above accurately reflects all work, treatment, procedures, and medical decision making performed by me. Fingerstick blood sugar is over range. Pt mother gave pt 10 units of Humalog 05/13/17 04:34 blood sugar now is 343 with treatment <Francisco Nur - Last Filed: 05/13/17 04:35> *DC/Admit/Observation/Transfer - Attestations Scribe Attestion: 05/12/17 23:44 Documentation prepared by Jose Oliver, acting as medical office clerk for Francisco Nur DO. <Jose Oliver - Last Filed: 05/13/17 00:41> - Discharge Dispostion Admit: Yes <Francisco Nur - Last Filed: 05/13/17 04:35> Diagnosis at time of Disposition: Diabetes mellitus, insulin dependent (IDDM), uncontrolled, ESRD (end stage renal disease) on dialysis, Pain, HTN (hypertension) - Discharge Dispostion Condition at time of disposition: Stable - Referrals Referrals: Edna Calero MD [Primary Care Provider] - - Patient Instructions - Post Discharge Activity
[2017-05-12] MEDS ORDERED: hydrALAZINE HCL 25 MG TABLET (FP) PO ONE ×2 (23:50→23:52)
[2017-05-12] MEDS ORDERED: hydrALAZINE HCL 25 MG TABLET (FP) ONE (23:55)
[2017-05-13 00:32] LABS: BASO % 2.7 % (0-2.0); EOS % 0.8 % (0-4.5); HEMATOCRIT 31.5 % (32.4-45.2); HEMOGLOBIN 9.6 GM/dL (10.7-15.3); LYMPH % 5.1 % (8-40); MCH 26.9 pg (25.7-33.7); MCHC 30.5 g/dl (32.0-36.0); MEAN CELL VOLUME 88.3 fl (80-96); MEAN PLT VOLUME 9.7 fl (7.5-11.1); MONO % 4.9 % (3.8-10.2); NEUT % 86.5 % (42.8-82.8); PLATELET COUNT 292 K/MM3 (134-434); RBC 3.56 M/mm3 (3.60-5.2); RDW 17.7 % (11.6-15.6); WHITE BLOOD COUNT 8.9 K/mm3 (4.0-10.0)
[2017-05-13 00:42] LABS: INR 1.22 (0.82-1.09); PROTHROMBIN TIME (PATIENT) 13.8 SEC (9.98-11.88)
[2017-05-13] MEDS ORDERED: morphine CARPU-JECT 2 MG/1 ML DISP.SYRIN IVPUSH ONE ×2 (00:44→02:32)
[2017-05-13] MEDS ORDERED: ONDANSETRON 4 MG/2 ML VIAL IVPUSH STA (00:44)
[2017-05-13] MEDS ORDERED: ONDANSETRON 4 MG/2 ML VIAL ONE (00:58)
[2017-05-13] MEDS ORDERED: MORPHINE SULFATE 10 MG/1 ML *VIAL ONE ×3 (00:58→06:11)
[2017-05-13 01:01] LABS: ALBUMIN 3.2 g/dl (3.4-5.0); ANION GAP 15 (8-16); BILIRUBIN,TOTAL 0.6 mg/dL (0.2-1.0); BLOOD UREA NITROGEN 59 mg/dL (7-18); CALCIUM 8.2 mg/dL (8.5-10.1); CHLORIDE 92 mmol/L (98-107); CO2 23 mmol/L (21-32); CREATININE 6.2 mg/dL (0.55-1.02); POTASSIUM 5.2 mmol/L (3.5-5.1); SGOT/AST 34 U/L (15-37); SGPT/ALT 36 U/L (12-78); SODIUM 130 mmol/L (136-145); TOT PROT 8.7 g/dl (6.4-8.2)
[2017-05-13 01:02] LABS: GLUCOSE,RANDOM 727 mg/dL (74-106); MAGNESIUM 2.2 mg/dL (1.8-2.4)
[2017-05-13 01:16] LABS: ALK PHOS 2058 U/L (45-117); N-TERMINAL BNP 54749.13 pg/ml (5-125)
[2017-05-13] MEDS ORDERED: INSULIN REGULAR HUMAN 100 UNITS/ML *VIAL IVPUSH ONE (01:23)
[2017-05-13] MEDS ORDERED: INSULIN (NOVOLOG) ASPART 100 UNITS/ML 10ML VIAL ONE ×4 (01:25→21:06)
[2017-05-13] MEDS ORDERED: LABETALOL HCL 5 MG/1 ML (100MG/20 ML VIAL) IVPUSH ONE (01:39)
[2017-05-13] MEDS ORDERED: NITROGLYCERIN 25MG/D5W 250ML 25 MG/250 ML ML IVPB SCH (03:15)
[2017-05-13] MEDS ORDERED: NITROGLYCERIN 25MG/D5W 250ML 25 MG/250 ML ML IVPB ONE (03:58)
--- NOTE | 2017-05-13 04:14 | PN ---
Teaching Attending Note Name of Resident: Keaton Reddy ATTENDING PHYSICIAN STATEMENT I saw and evaluated the patient. I reviewed the resident's note and discussed the case with the resident. I agree with the resident's findings and plan as documented. SUBJECTIVE: 26 F with Pmhx of ESRD on HD M/W/F, IDDM, HTN, PE, who presents with disorientation and difficulty focusing. States her vision has been out of focus. Note she missed HD today. OBJECTIVE: Physical: VS: Vital Signs Period Temp Pulse Resp BP Sys/Ames Pulse Ox Last 24 Hr 97.7 F-97.7 F 89-98 19 176-198/114-117 98 GEN: NAD, Resting in bed, AAOx3 HEENT: NCAT, PERRL, throat without erythema or exudates CARD: RRR S1, S2 RESP: CTAB ABD: BSx4, NTD to palpation EXT: Bilateral Edema, equal CBCD WBC 8.9 K/mm3 (4.0-10.0) 05/13/17 00:01 RBC 3.56 M/mm3 (3.60-5.2) L 05/13/17 00:01 Hgb 9.6 GM/dL (10.7-15.3) L D 05/13/17 00:01 Hct 31.5 % (32.4-45.2) L D 05/13/17 00:01 MCV 88.3 fl (80-96) 05/13/17 00:01 MCHC 30.5 g/dl (32.0-36.0) L 05/13/17 00:01 RDW 17.7 % (11.6-15.6) H 05/13/17 00:01 Plt Count 292 K/MM3 (134-434) D 05/13/17 00:01 MPV 9.7 fl (7.5-11.1) D 05/13/17 00:01 CMP Sodium 130 mmol/L (136-145) L 05/13/17 00:01 Potassium 5.2 mmol/L (3.5-5.1) H 05/13/17 00:01 Chloride 92 mmol/L (98-107) L 05/13/17 00:01 Carbon Dioxide 23 mmol/L (21-32) 05/13/17 00:01 Anion Gap 15 (8-16) 05/13/17 00:01 BUN 59 mg/dL (7-18) H 05/13/17 00:01 Creatinine 6.2 mg/dL (0.55-1.02) H 05/13/17 00:01 Creat Clearance w eGFR 8.10 (>60) 05/13/17 00:01 Random Glucose 727 mg/dL (74-106) H* 05/13/17 00:01 Calcium 8.2 mg/dL (8.5-10.1) L 05/13/17 00:01 Total Bilirubin 0.6 mg/dL (0.2-1.0) D 05/13/17 00:01 AST 34 U/L (15-37) 05/13/17 00:01 ALT 36 U/L (12-78) 05/13/17 00:01 Alkaline Phosphatase 2058 U/L (45-117) H 05/13/17 00:01 Total Protein 8.7 g/dl (6.4-8.2) H 05/13/17 00:01 Albumin 3.2 g/dl (3.4-5.0) L 05/13/17 00:01 Ambulatory Orders Gabapentin 200 mg PO TID 03/11/16 Sevelamer Carbonate [Renvela -] 1,600 mg PO TIDCM #60 tab 07/14/16 Acetaminophen [Tylenol .Regular Strength -] 325 mg PO Q6H PRN #0 tablet Losartan Potassium [Cozaar -] 100 mg PO DAILY 12/21/16 Labetalol HCl [Normodyne -] 400 mg PO TID #60 tablet 12/26/16 cloNIDine HCL [Catapres -] 0.3 mg PO TID tablet 12/26/16 Apixaban [Eliquis -] 5 mg PO BID #60 tablet 04/30/17 Cinacalcet HCl [Sensipar -] 60 mg PO DAILY #30 tab 04/30/17 Diphenhydramine HCl [Benadryl Capsule -] 50 mg PO Q8H PRN capsule 04/30/17 Ibuprofen [Motrin -] 400 mg PO Q6H PRN tablet 04/30/17 Insulin (Levemir) [Levemir Vial] 16 units SQ BID@0700,2200 ml 04/30/17 Insulin Sliding Scale [Novolog Vial Sliding Scale -] 1 vial SQ ACHS units 04/30 Nifedipine ER [Procardia XL -] 30 mg PO BID #60 tab.er.24 04/30/17 Sodium Chloride Nasal [place] [[place] Nasal [place] -] 2 spray NS BID PRN #1 bot 04/30/17 hydrALAZINE HCL [Apresoline -] 75 mg PO TID #90 tablet 04/30/17 oxyCODONE HCL [Roxicodone -] 10 mg PO Q6H PRN #20 tablet MDD 40mg 04/30/17 ASSESSMENT AND PLAN: 26 F with Pmhx of ESRD on HD M/W/F, IDDM, HTN, PE, who presents with disorientation and difficulty focusing, Being admitted for [facility]. 1.) Hyperosmolar Hyperglycemic State - Insulin gtt - Fs Q 1 hr - Check La - Mckoy cx - Missed HD, hold IVF as pt. is aneuric - BMP Q 2 HR - Endo consult 2.) ESRD on HD - Nephro Consult for HD today 3.) HTN Urgency - Placed on Nitro gtt by ED, difficult to contol w. oral meds - Trend Trops 4.) Hx. OF PE - C/W Eliquis 5.) Bilateral LE Edema - Duplex LE 6.) Dvt ppx - On Eliquis Admit to ICU: CC Time 38 Minutes Rest As per resident note
[2017-05-13] MEDS ORDERED: INSULIN REGULAR 100 UNITS in SODIUM CHLORIDE 99 ML IVPB SCH (04:30)
--- NOTE | 2017-05-13 05:02 | HP ---
CHIEF COMPLAINT: vision changes, malaise PCP: Edna Alvarado HISTORY OF PRESENT ILLNESS: Pt is a 26 y/o F with PMH ESRD (HD MWF missed yesterday), IDDM, HTN, myxoma s/p removal who presents to ED with complaint of malaise and altered vision. Pt states that yesterday she felt tired and unwell and decided not to go to HD. She described and episode during which she experienced an alteration in her vision and hearing. Pt clearly states that her vision was not blurry, but she is unable to describe the sensation exactly. Pt states that she felt this once before preceding a seizure, although she denies any seizure like activity during the current episode. Pt also describes nausea but denies vomiting. She states that this episode does not feel like DKA. Pt recently had a surgery on her right foot and had a Staph infection for which she has been receiving Vancomycin at her dialysis sessions. She received the dose 1hr before the end of her session. Procedure was done by Dr. Dubon. Pt denies CP, SOB, fever, chills, vomiting, diarrhea. No other complaints. Pt states her father has had a cold recently. ER course was notable for: (1) K 5.2, glucose 727, alk phos 2058, BNP 74833 (2) (3) Recent Travel: denies PAST MEDICAL HISTORY: ESRD (HD MWF missed yesterday), IDDM, HTN, myxoma s/p removal PAST SURGICAL HISTORY: recent Social History: Smoking: denies Alcohol: denies Drugs: denies Family History: denies Allergies No Known Drug Allergies Allergy (Verified 04/12/17 15:14) HOME MEDICATIONS: Home Medications Medication Instructions Recorded Gabapentin 200 mg PO TID 03/11/16 Sevelamer Carbonate [Renvela -] 1,600 mg PO TIDCM #60 tab 07/14/16 Acetaminophen [Tylenol .Regular 325 mg PO Q6H PRN #0 tablet 10/17/16 Strength -] Losartan Potassium [Cozaar -] 100 mg PO DAILY 12/21/16 Labetalol HCl [Normodyne -] 400 mg PO TID #60 tablet 12/26/16 cloNIDine HCL [Catapres -] 0.3 mg PO TID tablet 12/26/16 Apixaban [Eliquis -] 5 mg PO BID #60 tablet 04/30/17 Cinacalcet HCl [Sensipar -] 60 mg PO DAILY #30 tab 04/30/17 Diphenhydramine HCl [Benadryl 50 mg PO Q8H PRN capsule 04/30/17 Capsule -] Ibuprofen [Motrin -] 400 mg PO Q6H PRN tablet 04/30/17 Insulin (Levemir) [Levemir Vial] 16 units SQ BID@0700,2200 ml 04/30/17 Insulin Sliding Scale [Novolog 1 vial SQ ACHS units 04/30/17 Vial Sliding Scale -] Nifedipine ER [Procardia XL -] 30 mg PO BID #60 tab.er.24 04/30/17 Sodium Chloride Nasal [place] [[place] 2 spray NS BID PRN #1 bot 04/30/17 [place] Nasal [place] -] hydrALAZINE HCL [Apresoline -] 75 mg PO TID #90 tablet 04/30/17 oxyCODONE HCL [Roxicodone -] 10 mg PO Q6H PRN #20 tablet MDD 04/30/17 40mg REVIEW OF SYSTEMS CONSTITUTIONAL: generalized weakness, malaise Absent: fever, chills, diaphoresis,, loss of appetite, weight change HEENT: visual changes Absent: rhinorrhea, nasal congestion, difficulty swallowing, eye pain, CARDIOVASCULAR: Absent: chest pain, syncope, palpitations, irregular heart rate, lightheadedness , peripheral edema RESPIRATORY: Absent: cough, shortness of breath, dyspnea with exertion, orthopnea, GASTROINTESTINAL: nausea Absent: abdominal pain, abdominal distension, , vomiting, diarrhea, constipation , melena, hematochezia GENITOURINARY: Absent: dysuria, frequency, urgency, hesitancy, hematuria, MUSCULOSKELETAL: Absent: myalgia, arthralgia, joint swelling, back pain, neck pain SKIN: Absent: rash, itching, pallor HEMATOLOGIC/IMMUNOLOGIC: Absent: easy bleeding, easy bruising, lymphadenopathy, frequent infections ENDOCRINE: Absent: unexplained weight gain, unexplained weight loss, heat intolerance, cold intolerance NEUROLOGIC: Absent: headache, focal weakness or paresthesias, dizziness, unsteady gait, seizure, mental status changes, bladder or bowel incontinence PSYCHIATRIC: Absent: anxiety, depression, suicidal or homicidal ideation, hallucinations. PHYSICAL EXAMINATION Vital Signs - 24 hr 05/12/17 05/13/17 23:00 00:55 Temperature 97.7 F 97.7 F Pulse Rate 98 H Pulse Rate [ 89 Right Radial] Respiratory 19 Rate Blood Pressure 198/114 Blood Pressure 176/117 [Right Arm] O2 Sat by Pulse 98 Oximetry (%) GENERAL: Awake, alert, and fully oriented, in no acute distress. HEAD: Normal with no signs of trauma. EYES: Pupils equal, round and reactive to light, extraocular movements intact, sclera anicteric, conjunctiva clear. No lid lag. EARS, NOSE, THROAT: oropharynx clear without exudates. Moist mucous membranes. NECK: Normal range of motion, supple without lymphadenopathy, JVD, or masses. LUNGS: Breath sounds equal, clear to auscultation bilaterally. No wheezes, and no crackles. No accessory muscle use. HEART: Regular rate and rhythm, normal S1 and S2 without murmur, rub or gallop. ABDOMEN: Soft, nontender, not distended, normoactive bowel sounds, no guarding, no rebound, no masses. No hepatomegaly or splenomegaly. MUSCULOSKELETAL: Normal range of motion at all joints. No bony deformities or tenderness. No CVA tenderness. UPPER EXTREMITIES: 2+ pulses, warm, well-perfused. No cyanosis. No clubbing. No peripheral edema. LOWER EXTREMITIES: 2+ pulses, warm, well-perfused. No calf tenderness. No peripheral edema. NEUROLOGICAL: Cranial nerves II-XII intact. Normal speech. Normal gait. PSYCHIATRIC: Cooperative. Good eye contact. Appropriate mood and affect. SKIN: Calciphylaxis Warm, dry, normal turgor, normal capillary refill. Laboratory Results - last 24 hr 05/13/17 05/13/17 05/13/17 00:01 00:01 00:01 WBC 8.9 RBC 3.56 L Hgb 9.6 L D Hct 31.5 L D MCV 88.3 MCH 26.9 MCHC 30.5 L RDW 17.7 H Plt Count 292 D MPV 9.7 D Neutrophils % 86.5 H Lymphocytes % 5.1 L D Monocytes % 4.9 Eosinophils % 0.8 Basophils % 2.7 H PT with INR INR Sodium 130 L Potassium 5.2 H Chloride 92 L Carbon Dioxide 23 Anion Gap 15 BUN 59 H Creatinine 6.2 H Creat Clearance w eGFR 8.10 Random Glucose 727 H* Calcium 8.2 L Magnesium Total Bilirubin 0.6 D AST 34 ALT 36 Alkaline Phosphatase 2058 H B-Natriuretic Peptide Total Protein 8.7 H Albumin 3.2 L Serum , Qual Blood Type B POSITIVE Antibody Screen Negative 05/13/17 05/13/17 05/13/17 00:01 00:01 00:01 WBC RBC Hgb Hct MCV MCH MCHC RDW Plt Count MPV Neutrophils % Lymphocytes % Monocytes % Eosinophils % Basophils % PT with INR 13.80 H INR 1.22 H Sodium Potassium Chloride Carbon Dioxide Anion Gap BUN Creatinine Creat Clearance w eGFR Random Glucose Calcium Magnesium 2.2 Total Bilirubin AST ALT Alkaline Phosphatase B-Natriuretic Peptide 52070.13 H Total Protein Albumin Serum , Qual Negative Blood Type Antibody Screen ASSESSMENT/PLAN: Pt is a 26 y/o F with PMH ESRD (HD MWF missed yesterday), IDDM, HTN, myxoma s/p removal who presented to ED with hyperglycemic hyperosmolar state with elevated blood sugar, elevated Gap, and a missed HD session. #HHS -last blood glucose 727 -Ins ggt -BGM q1hr -LA -Cx -Endocrine consult #ESRD -last HD on M -neprho consult #HTN -Nitro in ED -monitor closely #Hx DVT PE -Eliquis #b/l LE edema -duplex #FEN -no fluid as pt is ESRD and anuric -K 5.2. pt to go for HD -NPO #PPx -on eliquis #Dispo -admit to ICU Keaton Reddy MD PGY-1 IM Visit type - Emergency Visit Emergency Visit: Yes Care time: The patient presented to the Emergency Department on the above date and was hospitalized for further evaluation of their emergent condition. - New Patient This patient is new to me today: Yes Date on this admission: 05/13/17 - Critical Care Critical Care patient: No
[2017-05-13 05:05] LABS: ALBUMIN 3.1 g/dl (3.4-5.0); ANION GAP 13 (8-16); BLOOD UREA NITROGEN 60 mg/dL (7-18); CALCIUM 7.7 mg/dL (8.5-10.1); CHLORIDE 98 mmol/L (98-107); CO2 20 mmol/L (21-32); CREATININE 6.2 mg/dL (0.55-1.02); LIPASE 91 U/L (73-393); POTASSIUM 5.1 mmol/L (3.5-5.1); SGOT/AST 28 U/L (15-37); SGPT/ALT 33 U/L (12-78); SODIUM 131 mmol/L (136-145)
[2017-05-13 05:24] LABS: ALK PHOS 1979 U/L (45-117); BILIRUBIN,TOTAL 0.6 mg/dL (0.2-1.0); N-TERMINAL BNP 59774.22 pg/ml (5-125); TOT PROT 8.4 g/dl (6.4-8.2)
[2017-05-13 05:26] LABS: GLUCOSE,RANDOM 336 mg/dL (74-106)
[2017-05-13 05:40] LABS: ACETONE SERUM NEGATIVE (NEGATIVE)
[2017-05-13] MEDS ORDERED: MORPHINE SULFATE 10 MG/1 ML *VIAL IVPUSH ONE (05:52)
[2017-05-13] MEDS ORDERED: HEPARIN NA (PORCINE) 5,000 UNITS/ML 1ML VIAL SQ SCH (06:00)
[2017-05-13] MEDS ORDERED: HEPARIN NA (PORCINE) 5,000 UNITS/ML 1ML VIAL ONE (06:33)
[2017-05-13] MEDS: INSULIN SLIDING SCALE (NOVOLOG) 1 VIAL SQ SCH ×4 (06:37→21:09)
[2017-05-13] MEDS ORDERED: SODIUM CHLORIDE NASAL SPRAY 44 ML BOTTLE NS PRN (08:27)
[2017-05-13] MEDS ORDERED: INSULIN DETEMIR 100 UNITS/ML MDV SQ ONE (08:39)
[2017-05-13] MEDS ORDERED: NIFEdipine 10 MG CAPSULE (FP) ONE (08:55)
[2017-05-13] MEDS: NIFEdipine E.R. 30 MG TABLET (FP) PO SCH ×2 (09:03→21:11)
[2017-05-13] MEDS: LOSARTAN POTASSIUM 50 MG TABLET (FP) PO SCH ×2 (09:48→10:03)
[2017-05-13] MEDS ORDERED: LOSARTAN POTASSIUM 25 MG TABLET PO SCH (10:00)
[2017-05-13] MEDS ORDERED: MUPIROCIN 2% TOPICAL OINTMENT FOR DECOLONIZATION NS SCH (10:00)
--- NOTE | 2017-05-13 10:32 | HOSP ---
Physical Examination Vital Signs: Vital Signs Temperature 98.5 F 05/13/17 10:27 Pulse Rate 84 05/13/17 10:27 Respiratory Rate 16 05/13/17 10:27 Blood Pressure 162/105 05/13/17 10:27 O2 Sat by Pulse Oximetry (%) 97 05/13/17 10:27 Findings/Remarks: PE Neuro: alert, awake, cn 2-12intact Pulm: L base crackles + NC CV: s1 s2 rrr Abd: s nt nd + bs Ext: RLE edema >L wound r foot cdi , LUE AVF Skin: Itching, + puritis, Labs: CBC, BMP 05/13/17 00:01 05/13/17 04:00 Hospitalist Encounter Assessment: Assessment: 26 year old female with a significant past medical history of ESRD, hypertension, diabetes, DVT, PE (on Eliquis), home oxygen dependent admitted after missing HD with complaints of vision and hearing alteration, found to be in HHNK. Plan: 1. HTN Urgency - Give oral BP agents now with nitro gtt overlap - Stop gtt once bp 150/100 - Procardia 30mg BID - Losartan 100mg po daily - Labetolol 400mg TID - Hydralazine 75mg TID - Catapress 0.3mg TID - Will need HD today, nephrology consulted 2. HHNK - Start renal diet - Give levemir 10units following breakfast - ISS, BGM ACHS - Resume levemir 16units BID tonight 3. ESRD - HD per renal - Vanco on HD - Karthik 4. Right plantar abscess - s/p I&D 04/21 - Culture with presumptive MRSA, on Vanco with dialysis - Dr Mckenzie/ ID consulted 5. Hx of DVT/PE - Eliquis 5mg po bid - Pt has stopped taking due to insurance not covering, will need to speak with insurance or eliquis international sales representative 6. Prophylaxis - DVT: Eliquis BID
[2017-05-13] MEDS ORDERED: ACETAMINOPHEN 325 MG TABLET (FP) PO ONE (10:35)
[2017-05-13] MEDS ORDERED: oxyCODONE HCL 5 MG TABLET PO ONE (10:35)
[2017-05-13] MEDS ORDERED: diphenhydrAMINE HCL 25 MG CAPSULE (FP) PO PRN (10:52)
[2017-05-13] MEDS ORDERED: EPOETIN ALFA 10,000 UNIT/1 ML VIAL SQ ONE (11:30)
--- NOTE | 2017-05-13 12:05 | EKG ---
Test Reason : Blood Pressure : / mmHG Vent. Rate : 088 BPM Atrial Rate : 088 BPM P-R Int : 182 ms QRS Dur : 086 ms QT Int : 380 ms P-R-T Axes : 036 022 072 degrees QTc Int : 459 ms NORMAL SINUS RHYTHM POSSIBLE ANTERIOR INFARCT (CITED ON OR BEFORE 04-MAR-2017) ABNORMAL ECG WHEN COMPARED WITH ECG OF 12-APR-2017 16:59, NO SIGNIFICANT CHANGE WAS FOUND Confirmed by RAMANDEEP KATHLEEN, WESLEY ([id number]) on 05/13/2017 12:05:02 PM Referred By: Confirmed By:WESLEY SABILLON MD
--- NOTE | 2017-05-13 12:25 | CONSULT ---
Consult - text type - Consultation Consultation Note: Podiatry Consultation: 26 year old IDDM F well known to me from wound healing center, s/p R foot incision and drainage of abscess (+) MRSA last month. 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 Patient readmitted for hyperglycemia, ESRD on HD. Patient non-compliant with her medications, glucose control. Getting bactroban + DSD R foot QOD with home nursing services. Patient does note the home nurses come "sometimes". Denies F/V/N/C/SOB/CP. Afebrile, VSS. PMHx: poorly controlled IDDM, ESRD on HD, HTN Meds: noted ALL: NKMA CATRACHITA: R foot: pedal pulses palpable, TG wnl, CFT brisk to all toes. Post-surgical incision plantar arch with mild wound dehiscence, minimal serous drainage, fibrogranular wound base, no purulent drainage, no fluctuance, no periwound erythema, no ascending cellulitis, no signs of active infection. No tenderness to palpation. WBC: 8.9 OR Cx: MRSA Imp: 26 year old IDDM, ESRD F with R foot post-surgical wound s/p incision and drainage of MRSA abscess 04/21/17 1. No surgical intervention, post-surgical site is clean without signs of infection 2. Abx per infectious disease 3. Bactroban + DSD R foot daily 4. Local wound care only. Will follow up with me in wound healing center. Thank you for the courtesy of this consultation. Delfino Dubon DPM
[2017-05-13] MEDS ORDERED: VANCOMYCIN 1,000 MG in DEXTROSE 5%-WATER - 250 ML IVPB ONE (13:00)
[2017-05-13] MEDS: GABAPENTIN 100 MG CAPSULE (FP) PO SCH ×2 (16:33→21:09)
[2017-05-13] MEDS: hydrALAZINE HCL 50 MG TABLET (FP) PO SCH ×2 (16:34→21:10)
[2017-05-13] MEDS: LABETALOL HCL 200 MG TABLET (FP) PO SCH ×2 (16:34→21:10)
[2017-05-13] MEDS: SEVELAMER CARBONATE 800 MG TAB (FP) PO SCH (16:34)
--- NOTE | 2017-05-13 16:37 | CONSULT ---
Consult Consult Specialty:: Nephrology ( [place]/ [place]) Referred by:: Alysia Ramos Reason for Consultation:: Patient with ESRD - History of Present Illness Chief Complaint: This is a 26 y/o F with PMH ESRD (HD MWF missed yesterday), IDDM, HTN, myxoma s/p removal who presents to ED with complaint of malaise and altered vision. Pt states that yesterday she felt tired and unwell and decided not to go to HD. She described and episode during which she experienced an alteration in her vision and hearing. Pt states that her vision was not blurry, but she is unable to describe the sensation exactly. Pt states that she felt this once before preceding a seizure, although she denies any seizure like activity during the current episode. Pt also describes nausea but denies vomiting. She states that this episode does not feel like DKA. Pt recently had a surgery on her right foot and had a Staph infection for which she has been receiving Vancomycin at her dialysis sessions. She received the dose 1hr before the end of her session. Procedure was done by Dr. Dubon. 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, PE, DVT) Pulmonary: Yes: Pulmonary Embolus Renal/: Yes: Renal Failure, Hemodialysis ...LMP: 08/17/14 Infectious Disease: Yes: MRSA (history of bacteremia, recent mrsa foot abscess) Endocrine: Yes: Diabetes Mellitus (type 1 on insulin pump) Additional Medical History: DVT, PE on coumadin - Past Surgical History Past Surgical History: Yes: AV Fistula/Graft (Right arm) - Alcohol/Substance Use Hx Alcohol Use: No History of Substance Use: reports: None - Smoking History Smoking history: Current every day smoker Have you smoked in the past 12 months: Yes Aproximately how many cigarettes per day: 10 - Social History Usual Living Arrangement: With Parent ADL: Independent Occupation: unemployed History of Recent Travel: No Home Medications - Allergies Allergies/Adverse Reactions: Allergies Allergy/AdvReac Type Severity Reaction Status Date / Time No Known Drug Allergies Allergy Verified 04/12/17 15:14 - Home Medications Home Medications: Ambulatory Orders Gabapentin 200 mg PO TID 03/11/16 Sevelamer Carbonate [Renvela -] 1,600 mg PO TIDCM #60 tab 07/14/16 Acetaminophen [Tylenol .Regular Strength -] 325 mg PO Q6H PRN #0 tablet Losartan Potassium [Cozaar -] 100 mg PO DAILY 12/21/16 Labetalol HCl [Normodyne -] 400 mg PO TID #60 tablet 12/26/16 cloNIDine HCL [Catapres -] 0.3 mg PO TID tablet 12/26/16 Diphenhydramine HCl [Benadryl Capsule -] 50 mg PO Q8H PRN capsule 04/30/17 Ibuprofen [Motrin -] 400 mg PO Q6H PRN tablet 04/30/17 Insulin (Levemir) [Levemir Vial] 16 units SQ BID@0700,2200 ml 04/30/17 Insulin Sliding Scale [Novolog Vial Sliding Scale -] 1 vial SQ ACHS units 04/30 Nifedipine ER [Procardia XL -] 30 mg PO BID #60 tab.er.24 04/30/17 Sodium Chloride Nasal [place] [[place] Nasal [place] -] 2 spray NS BID PRN #1 bot 04/30/17 hydrALAZINE HCL [Apresoline -] 75 mg PO TID #90 tablet 04/30/17 Family Disease History - Family Disease History Family Disease History: Diabetes: Grandparent (HTN), Heart Disease: Grandparent , Other: Father (unknown), Mother (HTN) Review of Systems - Review of Systems Constitutional: reports: Loss of Appetite, Malaise Eyes: reports: Blind Spots, Blurred Vision Neck: denies: Decreased ROM, Stiffness Respiratory: denies: Cough Musculoskeletal: reports: Back Pain Neurological: denies: Change in Speech, Confusion, Seizure Physical Exam Vital Signs: Vital Signs Temperature 97.4 F L 05/13/17 11:55 Pulse Rate 91 H 05/13/17 15:35 Respiratory Rate 18 05/13/17 15:35 Blood Pressure 152/82 05/13/17 15:35 O2 Sat by Pulse Oximetry (%) 97 05/13/17 10:27 Constitutional: Yes: Calm HENT: Yes: Normocephalic Neck: Yes: Trachea Midline Cardiovascular: Yes: Regular Rate and Rhythm, S1, S2 Respiratory: Yes: CTA Bilaterally, Diminished Gastrointestinal: Yes: Normal Bowel Sounds Renal/: No: CVA Tenderness - Left, CVA Tenderness - Right Labs: CBC, BMP 05/13/17 00:01 Problem List - Problems (1) Diabetes mellitus, insulin dependent (IDDM), uncontrolled Code(s): E10.65 - TYPE 1 DIABETES MELLITUS WITH HYPERGLYCEMIA (2) Pain Code(s): R52 - PAIN, UNSPECIFIED (3) ESRD (end stage renal disease) on dialysis Code(s): N18.6 - END STAGE RENAL DISEASE; Z99.2 - DEPENDENCE ON RENAL DIALYSIS (4) HTN (hypertension) Code(s): I10 - ESSENTIAL (PRIMARY) HYPERTENSION (5) Anemia Code(s): D64.9 - ANEMIA, UNSPECIFIED Qualifiers: Folate deficiency anemia type: dietary (6) Diabetic foot infection Code(s): E11.69 - TYPE 2 DIABETES MELLITUS WITH OTHER SPECIFIED COMPLICATION; L08.9 - LOCAL INFECTION OF THE SKIN AND SUBCUTANEOUS TISSUE, UNSP (7) Diabetic foot ulcer Code(s): E11.621 - TYPE 2 DIABETES MELLITUS WITH FOOT ULCER; L97.509 - NON- PRESSURE CHRONIC ULCER OTH PRT UNSP FOOT W UNSP SEVERITY Qualifiers: Diabetes mellitus type: type 1 Laterality: right Qualified Code(s): E10.621 - Type 1 diabetes mellitus with foot ulcer Assessment/Plan This is a 26 y/o F with PMH ESRD, IDDM, HTN, Myxoma s/p removal who presents to ER with complaint of malaise and altered vision. Pt states that yesterday she felt tired and unwell and decided not to go to HD. She described and episode during which she experienced an alteration in her vision and hearing. Pt clearly states that her vision was not blurry, but she is unable to describe the sensation exactly. No seizures. The blood Glucose was elevated on admission, which had slowly improved. Pt recently had a surgery on her right foot and had a Staph infection for which she has been receiving Vancomycin at her dialysis sessions. She received the dose 1hr before the end of her session. Procedure was done by Dr. Dubon. On Vancomycin post dialysis. The patient missed dialysis yesterday. Will arrange for HD today, and Post dialysis Vancomycin. Orders reviewed with the RN. Susie Peter MD
[2017-05-13 17:20] VITALS: BMI 25.0
[2017-05-13] MEDS: cloNIDine HCL 0.1 MG TABLET PO SCH ×2 (17:27→21:16)
[2017-05-13] MEDS: diphenhydrAMINE HCL 25 MG CAPSULE (FP) PO PRN (18:07)
[2017-05-13] MEDS: INSULIN DETEMIR 100 UNITS/ML MDV SQ SCH (21:09)
[2017-05-13] MEDS: APIXABAN 5 MG TABLET PO SCH (21:16)
[2017-05-13] MEDS: oxyCODONE HCL 5 MG TABLET PO PRN (21:28)
[2017-05-13] MEDS ORDERED: CHLORHEXIDINE GLUCONATE 4% CLEANSER FOR DECOLONIZATION TP SCH (22:00)
[2017-05-14] MEDS: diphenhydrAMINE HCL 25 MG CAPSULE (FP) PO PRN ×2 (00:22→06:12)
[2017-05-14] MEDS: oxyCODONE HCL 5 MG TABLET PO PRN ×5 (02:42→21:23)
[2017-05-14] MEDS: hydrALAZINE HCL 50 MG TABLET (FP) PO SCH ×3 (05:36→21:23)
[2017-05-14] MEDS: cloNIDine HCL 0.1 MG TABLET PO SCH ×3 (05:37→21:22)
[2017-05-14] MEDS: GABAPENTIN 100 MG CAPSULE (FP) PO SCH ×3 (05:38→21:22)
[2017-05-14] MEDS: LABETALOL HCL 200 MG TABLET (FP) PO SCH ×3 (05:38→21:31)
[2017-05-14] MEDS: INSULIN SLIDING SCALE (NOVOLOG) 1 VIAL SQ SCH ×4 (06:23→21:34)
[2017-05-14] MEDS: INSULIN DETEMIR 100 UNITS/ML MDV SQ SCH ×2 (06:24→21:24)
[2017-05-14] MEDS ORDERED: PT OWN MED DRAWER 7, Y5N ONE ×3 (06:29→21:17)
--- NOTE | 2017-05-14 06:45 | HOSP ---
Subjective - Review of Symptoms Events since last encounter: Hospitalist Encounter Notified by RN, that patient reports R-flank pain x several days worse this am. Subjective: Arrived to bedside, patient is alert, awake and oriented. She reports R- torso pain, increased on inspiration. A Assessment: 26 year old female with a significant past medical history of ESRD, hypertension, diabetes, DVT, PE (on Eliquis), home oxygen dependent admitted after missing HD with complaints of vision and hearing alteration. On exam no R-CVA tenderness noted, non-tender to torso or RUQ, Plan: Chest Xray Incentive Spirometer Continue with current medication regimen Pulmonary: Yes: Other (pain on inspiration) Gastrointestinal: Yes: Other (r- torso) Genitourinary: Yes: Other (right flank pain) Physical Examination Vital Signs: Vital Signs Temperature 97.8 F 05/14/17 02:00 Pulse Rate 84 05/14/17 02:00 Respiratory Rate 20 05/14/17 02:00 Blood Pressure 143/79 05/14/17 02:00 O2 Sat by Pulse Oximetry (%) 97 05/13/17 20:41 Constitutional: Yes: Mild Distress, Thin Eyes: Yes: WNL, Conjunctiva Clear, PERRL HENT: Yes: WNL, Atraumatic, Normocephalic Neck: Yes: WNL, Supple, Trachea Midline Cardiovascular: Yes: WNL, Regular Rate and Rhythm, S1, S2 Respiratory: Yes: Diminished (right base). No: SOB, SOB on Exertion Gastrointestinal: Yes: WNL, Normal Bowel Sounds, Soft. No: Tenderness, Tenderness, Epigastrium Renal/: No: CVA Tenderness - Right Breast(s): Yes: WNL Musculoskeletal: Yes: WNL Extremities: Yes: WNL Neurological: Yes: WNL, Alert, Oriented, Cran Nerves II-XII Intact ...Motor Strength: WNL Psychiatric: Yes: WNL, Alert, Oriented Labs: CBC, BMP 05/13/17 00:01 05/13/17 15:30 Laboratory Results - last 24 hr 05/12/17 05/13/17 05/13/17 23:39 01:22 02:53 BUN Creatinine POC Glucometer > 400 > 400 > 400 05/13/17 05/13/17 05/13/17 08:29 10:51 15:30 BUN 23 H D Creatinine 3.0 H POC Glucometer 175.82057 192.14004 05/13/17 05/13/17 05/14/17 16:37 21:04 05:30 BUN Creatinine POC Glucometer 223 205 54 05/14/17 06:16 BUN Creatinine POC Glucometer 72 Current Medications Generic Name Dose Route Start Last Admin Trade Name Freq PRN Reason Stop Dose Admin Apixaban 5 mg 05/13/17 22:00 05/13/17 21:16 Eliquis - PO 5 mg BID ROSA MARIA Administration Clonidine 0.3 mg 05/13/17 14:00 05/14/17 05:37 Catapres - PO 0.3 mg TID ROSA MARIA Administration Diphenhydramine HCl 50 mg 05/13/17 17:42 05/14/17 06:12 Benadryl - PO 50 mg Q6H PRN Administration FOR ITCHING Gabapentin 200 mg 05/13/17 14:00 05/14/17 05:38 Neurontin - PO 200 mg TID ROSA MARIA Administration Hydralazine HCl 75 mg 05/13/17 14:00 05/14/17 05:36 Apresoline - PO 75 mg TID ROSA MARIA Administration Insulin Aspart 1 vial 05/13/17 07:00 05/14/17 06:23 Novolog Vial Sliding Scale - SQ Not Given ACHS [facility]END[facility] S[facility] TO [facility] Protocol Insulin Detemir 16 units 05/13/17 22:00 05/14/17 06:24 Levemir Vial SQ Not Given BID@0700,2200 [facility] Labetalol HCl 400 mg 05/13/17 14:00 05/14/17 05:38 Normodyne - PO 400 mg TID [facility] Administration Losartan Potassium 100 mg 05/13/17 10:00 05/13/17 10:03 Cozaar - PO Not Given DAILY [facility] Mupirocin 1 applic 05/14/17 10:00 Bactroban 2% Ointment - TP DAILY [facility] Nifedipine 30 mg 05/13/17 10:00 05/13/17 21:11 Procardia Xl - PO 30 mg BID ROSA MARIA Administration Oxycodone HCl 5 mg 05/13/17 17:41 05/14/17 06:50 Roxicodone - PO 5 mg Q4H PRN Administration PAIN LEVEL 4 - 6 Sevelamer Carbonate 1,600 mg 05/13/17 12:00 05/13/17 16:34 Renvela - PO 1,600 mg TIDCM ROSA MARIA Administration Sodium Chloride 2 spray 05/13/17 08:27 [place] Nasal [place] - NS BID PRN NASAL CONGESTION
[2017-05-14] MEDS: SEVELAMER CARBONATE 800 MG TAB (FP) PO SCH ×3 (07:56→18:03)
[2017-05-14] MEDS: NIFEdipine E.R. 30 MG TABLET (FP) PO SCH ×2 (09:39→21:22)
[2017-05-14] MEDS: LOSARTAN POTASSIUM 50 MG TABLET (FP) PO SCH (09:39)
[2017-05-14] MEDS ORDERED: INSULIN (NOVOLOG) ASPART 100 UNITS/ML 10ML VIAL ONE ×2 (11:00→21:17)
[2017-05-14] MEDS: MUPIROCIN 2% TOPICAL OINTMENT 22 GM TUBE TP SCH (11:00)
[2017-05-14] MEDS: APIXABAN 5 MG TABLET PO SCH ×2 (11:00→21:23)
[2017-05-14] MEDS ORDERED: EPOETIN ALFA 10,000 UNIT/1 ML VIAL SQ ONE (11:30)
--- NOTE | 2017-05-14 11:50 | PN ---
Progress Note (short form) - Note Progress Note: Renal follow up for ESRD on HD Pt seen and examined at the bedside reports pain and discomfort in her left thigh/going no fever, chills, SOB, CP no GUTIERRES s/p dialysis yesterday with 4.5kg UF Vital Signs Temperature 98.1 F 05/14/17 08:00 Pulse Rate 82 05/14/17 08:00 Respiratory Rate 18 05/14/17 08:00 Blood Pressure 159/108 05/14/17 08:00 O2 Sat by Pulse Oximetry (%) 100 05/14/17 08:57 Intake & Output 05/11/17 05/12/17 05/13/17 05/14/17 23:59 23:59 23:59 23:59 Intake Total 400 Balance 400 Weight 65.771 kg 70.307 kg NAD awake and alert Trace to 1+ LE edema left thigh tenderness, no warmth CBC, BMP 05/13/17 00:01 05/13/17 15:30 Current Medications Apixaban (Eliquis -) 5 mg PO BID [facility] Last Admin: 05/13/17 21:16 Dose: 5 mg Clonidine (Catapres -) 0.3 mg PO TID [facility] Last Admin: 05/14/17 05:37 Dose: 0.3 mg Diphenhydramine HCl (Benadryl -) 50 mg PO Q6H PRN PRN Reason: FOR ITCHING Last Admin: 05/14/17 06:12 Dose: 50 mg Gabapentin (Neurontin -) 200 mg PO TID [facility] Last Admin: 05/14/17 05:38 Dose: 200 mg Hydralazine HCl (Apresoline -) 75 mg PO TID [facility] Last Admin: 05/14/17 05:36 Dose: 75 mg Insulin Aspart (Novolog Vial Sliding Scale -) 1 vial SQ ACHS [facility] PRN Reason: Protocol Last Admin: 05/14/17 11:08 Dose: Not Given Insulin Detemir (Levemir Vial) 16 units SQ BID@0700,2200 [facility] Last Admin: 05/14/17 06:24 Dose: Not Given Labetalol HCl (Normodyne -) 400 mg PO TID [facility] Last Admin: 05/14/17 05:38 Dose: 400 mg Losartan Potassium (Cozaar -) 100 mg PO DAILY [facility] Last Admin: 05/14/17 09:39 Dose: 100 mg Mupirocin (Bactroban 2% Ointment -) 1 applic TP DAILY [facility] Nifedipine (Procardia Xl -) 30 mg PO BID [facility] Last Admin: 05/14/17 09:39 Dose: 30 mg Oxycodone HCl (Roxicodone -) 5 mg PO Q4H PRN PRN Reason: PAIN LEVEL 4 - 6 Last Admin: 05/14/17 06:50 Dose: 5 mg Sevelamer Carbonate (Renvela -) 1,600 mg PO TIDCM [facility] Last Admin: 05/14/17 07:56 Dose: 1,600 mg Sodium Chloride ([place] Nasal [place] -) 2 spray NS BID PRN PRN Reason: NASAL CONGESTION 26 y/o F with PMH ESRD (HD MWF missed yesterday), IDDM, HTN, myxoma s/p removal who presents to ED with complaint of malaise and altered vision. #ESRD on HD with missed dialysis and chronic volume overload s/p dialysis yesterday with 4.5 Kg UF planning for additional dialysis today with UF as tolerated will check Vanco levels with HD and re-dose as needed Fluid and salt restriction #Left thigh and groin pain check doppler to r/o DVT as pt was off eliquis as outpatient check CT of the soft tissue and pelvis to r/o collection as pt with recent diagnosis of Pelvic osteomylitis #Hypertension Continue Losartan, Labetalol, Nifedpine, Hydralazine Goal BP < 140/90 Thank you Nathan Vo DO
[2017-05-14] MEDS: MINERAL OIL/PET HY-PHL TOPICAL OINTMENT 454 GM JAR TP SCH ×2 (14:20→21:28)
[2017-05-14] MEDS: HYDROCORTISONE 2.5% TOPICAL CREAM 30 GM TUBE TP SCH ×2 (14:25→21:27)
--- NOTE | 2017-05-14 14:28 | PN ---
Progress Note (short form) - Note Progress Note: ID Consult dictated 26 y/o female PMH DM, ESRD, presumed chronic osteomyelitis, admitted with uncontrolled diabetes mellitus. Complains of continued L groin pain; now with several days hx R flank pain. For follow up imaging studies Obtain vancomycin trough, ESR, CRP To complete addditional 16 calendar days of Vancomycin
--- NOTE | 2017-05-14 15:12 | PN ---
Physical Exam: SUBJECTIVE: Patient seen and examined. She c/o of L thigh pain and swelling. Also notes relentless scratching post vanco on HD. OBJECTIVE: Vital Signs Period Temp Pulse Resp BP Sys/Ames Pulse Ox Last 24 Hr 97.7 F-98.8 F 67-99 18-20 142-159/53-108 97-100 PE Neuro: alert, awake, cn 2-12intact Pulm: diminished, L base crackles + nc CV: s1 s2 rrr no mrg Abd: s nt nd + bs Ext: L thigh/groin swelling, warm, +tender to palpation, LUE AVF Skin: upper ext/back with scratch kendrick Laboratory Results - last 24 hr 05/13/17 05/13/17 05/13/17 15:30 16:37 21:04 BUN 23 H D Creatinine 3.0 H POC Glucometer 223 205 05/14/17 05/14/17 05/14/17 05:30 06:16 11:07 BUN Creatinine POC Glucometer 54 72 134 Active Medications Generic Name Dose Route Start Last Admin Trade Name Freq PRN Reason Stop Dose Admin Apixaban 5 mg 05/13/17 22:00 05/13/17 21:16 Eliquis - PO 5 mg BID ROSA MARIA Administration Clonidine 0.3 mg 05/13/17 14:00 05/14/17 05:37 Catapres - PO 0.3 mg TID ROSA MARIA Administration Diphenhydramine HCl 50 mg 05/13/17 17:42 05/14/17 06:12 Benadryl - PO 50 mg Q6H PRN Administration FOR ITCHING Gabapentin 200 mg 05/13/17 14:00 05/14/17 05:38 Neurontin - PO 200 mg TID ROSA MARIA Administration Hydralazine HCl 75 mg 05/13/17 14:00 05/14/17 05:36 Apresoline - PO 75 mg TID ROSA MARIA Administration Vancomycin HCl 1,000 mg/ 250 mls @ 250 mls/hr 05/14/17 12:00 Dextrose IVPB 05/14/17 12:59 ONCE ONE Protocol Insulin Aspart 1 vial 05/13/17 07:00 05/14/17 11:08 Novolog Vial Sliding Scale - SQ Not Given ACHS ROSA MARIA Protocol Insulin Detemir 16 units 05/13/17 22:00 05/14/17 06:24 Levemir Vial SQ Not Given BID@0700,2200 [facility] Labetalol HCl 400 mg 05/13/17 14:00 05/14/17 05:38 Normodyne - PO 400 mg TID ROSA MARIA Administration Losartan Potassium 100 mg 05/13/17 10:00 05/14/17 09:39 Cozaar - PO 100 mg DAILY ROSA MARIA Administration Mupirocin 1 applic 05/14/17 10:00 Bactroban 2% Ointment - TP DAILY ROSA MARIA Nifedipine 30 mg 05/13/17 10:00 05/14/17 09:39 Procardia Xl - PO 30 mg BID ROSA MARIA Administration Oxycodone HCl 5 mg 05/13/17 17:41 05/14/17 12:06 Roxicodone - PO 5 mg Q4H PRN Administration PAIN LEVEL 4 - 6 Sevelamer Carbonate 1,600 mg 05/13/17 12:00 05/14/17 12:03 Renvela - PO 1,600 mg TIDCM ROSA MARIA Administration Sodium Chloride 2 spray 05/13/17 08:27 [place] Nasal [place] - NS BID PRN NASAL CONGESTION Assessment: 26 year old female with a significant past medical history of ESRD, hypertension, diabetes, DVT, PE (on Eliquis), home oxygen dependent admitted after missing HD with complaints of vision and hearing alteration, found to be in HHNK. Plan: 1. L groin swelling, tenderness - Doppler r/o DVT - CT soft tissue pelvis, LLE, thigh assess for abscess - Recent bx negative for osteo . 2. HTN Urgency - Resolved 3. HTN - Procardia 30mg BID - Losartan 100mg po daily - Labetolol 400mg TID - Hydralazine 75mg TID - Catapress 0.3mg TID - BP goal <140/90 4. HHNK - Resolved 5. DM II - ISS, BGM ACHS - Levemir 16units BID 6. ESRD MWF - HD yesterday - HD today - Vanco on HD, give benadryl when return to floor to aid with scratching, start hydrocortisone cream - Renvela - Renal seeing 7. Right plantar abscess - s/p I&D 04/21 - Continue 16 more days vanco with HD - Daily 8. 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 Elevated Alk phos - In absence of elevated LFTs, likely due to elevated PTH 2/2 ESRD 10. Prophylaxis - DVT: Eliquis BID Visit type - Emergency Visit Emergency Visit: Yes ED Registration Date: 05/13/17 Care time: The patient presented to the Emergency Department on the above date and was hospitalized for further evaluation of their emergent condition. - New Patient This patient is new to me today: Yes Date on this admission: 05/14/17 - Critical Care Critical Care patient: No
[2017-05-14 17:13] LABS: BASO % 0.4 % (0-2.0); EOS % 2.1 % (0-4.5); HEMATOCRIT 27.3 % (32.4-45.2); HEMOGLOBIN 8.6 GM/dL (10.7-15.3); LYMPH % 5.8 % (8-40); MCH 27.4 pg (25.7-33.7); MCHC 31.3 g/dl (32.0-36.0); MEAN CELL VOLUME 87.4 fl (80-96); MEAN PLT VOLUME 10.8 fl (7.5-11.1); MONO % 14.6 % (3.8-10.2); NEUT % 77.1 % (42.8-82.8); PLATELET COUNT 237 K/MM3 (134-434); RBC 3.13 M/mm3 (3.60-5.2); RDW 17.7 % (11.6-15.6)
[2017-05-14 17:43] LABS: ANION GAP 14 (8-16); BLOOD UREA NITROGEN 41 mg/dL (7-18); CALCIUM 7.9 mg/dL (8.5-10.1); CHLORIDE 94 mmol/L (98-107); CO2 23 mmol/L (21-32); CREATININE 5.4 mg/dL (0.55-1.02); POTASSIUM 4.7 mmol/L (3.5-5.1); SODIUM 131 mmol/L (136-145)
[2017-05-14 17:49] LABS: GLUCOSE,RANDOM 553 mg/dL (74-106)
[2017-05-14] MEDS ORDERED: VANCOMYCIN 1,000 MG in DEXTROSE 5%-WATER - 250 ML IVPB ONE (19:00)
[2017-05-15] MEDS ORDERED: INSULIN (NOVOLOG) ASPART 100 UNITS/ML 10ML VIAL SQ ONE
[2017-05-15] MEDS: oxyCODONE HCL 5 MG TABLET PO PRN ×4 (03:25→23:52)
[2017-05-15] MEDS ORDERED: PT OWN MED DRAWER 7, Y5N ONE ×4 (06:03→21:40)
[2017-05-15] MEDS: cloNIDine HCL 0.1 MG TABLET PO SCH ×3 (06:10→21:46)
[2017-05-15] MEDS: hydrALAZINE HCL 50 MG TABLET (FP) PO SCH ×3 (06:10→21:47)
[2017-05-15] MEDS: LABETALOL HCL 200 MG TABLET (FP) PO SCH ×3 (06:11→21:49)
[2017-05-15] MEDS: GABAPENTIN 100 MG CAPSULE (FP) PO SCH ×3 (06:11→21:47)
[2017-05-15] MEDS: INSULIN SLIDING SCALE (NOVOLOG) 1 VIAL SQ SCH ×4 (06:12→21:48)
[2017-05-15] MEDS: INSULIN DETEMIR 100 UNITS/ML MDV SQ SCH ×2 (06:12→21:47)
[2017-05-15] MEDS ORDERED: INSULIN (NOVOLOG) ASPART 100 UNITS/ML 10ML VIAL ONE (06:30)
[2017-05-15] MEDS: SEVELAMER CARBONATE 800 MG TAB (FP) PO SCH ×3 (07:50→16:59)
[2017-05-15] MEDS: LOSARTAN POTASSIUM 50 MG TABLET (FP) PO SCH (10:06)
[2017-05-15] MEDS: NIFEdipine E.R. 30 MG TABLET (FP) PO SCH ×3 (10:06→21:47)
[2017-05-15] MEDS: APIXABAN 5 MG TABLET PO SCH ×2 (10:06→21:46)
[2017-05-15] MEDS: HYDROCORTISONE 2.5% TOPICAL CREAM 30 GM TUBE TP SCH ×2 (10:10→21:50)
[2017-05-15] MEDS: MINERAL OIL/PET HY-PHL TOPICAL OINTMENT 454 GM JAR TP SCH ×2 (10:10→21:49)
[2017-05-15] MEDS: MUPIROCIN 2% TOPICAL OINTMENT 22 GM TUBE TP SCH (10:11)
--- NOTE | 2017-05-15 10:16 | CONS ---
DATE OF CONSULTATION: DATE OF DICTATION: 05/14/2017 HISTORY OF PRESENT ILLNESS: The patient is a 26-year-old female with a longstanding history of insulin-dependent diabetes mellitus, end-stage renal disease on hemodialysis evaluated for chronic osteomyelitis. . The patient was recently admitted to [facility] in April of 2017. A CT scan of the lower extremity on April 14, 2017, revealed interval development of fluid collection within the medial gastrocnemius muscle of the right lower leg as well as partial erosion of the left pelvic tubercle suggestive of pubic bone osteomyelitis. There was also associated development of diffuse edematous swelling of the left obturator externus muscle. At that time, she was kept off antibiotic therapy and a biopsy was performed by interventional radiology. Two bone biopsies and two muscle aspirations were performed. Routine culture and sensitivity, AFB, and fungal cultures were all negative. She subsequently developed an ulceration and abscess on the left foot for which incision and drainage was performed. Cultures of that wound grew MRSA. On review of her previous cultures, she has grown MRSA from various tissue cultures as well as positive blood cultures in 2014. She was discharged to complete a 6-week course of vancomycin dosed at hemodialysis. She is presently completing the 4th week. She now complains of persistent left groin pain and left lower extremity pain over the past several days. She has also developed new right flank pain of unclear etiology. She denies any associated fever or chills. PAST MEDICAL HISTORY: Positive for insulin-dependent diabetes mellitus since age 10, end-stage renal disease on hemodialysis since 2011, biopsy-proven necrotizing myopathy, hypertension, asthma, pulmonary embolism, atrial myxoma, MRSA bacteremia from 2014. PAST SURGICAL HISTORY: Status post cholecystectomy and AV graft, status post removal of an infected permacath. ALLERGIES: No known allergies. MEDICATIONS: At the present time include vancomycin, Cozaar, Eliquis, Neurontin, Normodyne, Catapres, Procardia, Apresoline, Benadryl, Levemir, oxycodone. SOCIAL HISTORY: She lives in the community. Positive active tobacco use. She denies illicit drug use. HIV test in the past has been negative. LABORATORY DATA: White count 8.9, hematocrit 31.5, platelet count 292. BUN 60, creatinine 6.2, glucose 336, her alkaline phosphatase has been chronically elevated, most recently 1978. PHYSICAL EXAMINATION: General: She is awake. She is chronically ill-appearing. Vital signs: Temperature 98.1, blood pressure 159/108, pulse 80 and regular, respirations 18 per minute. HEENT: Sclerae anicteric. Heart: Heart sounds S1, S2. Lungs: Clear bilaterally. Abdomen: Soft. No tenderness elicited. No mass, rebound, or rigidity. Extremities: AV graft present in the left upper extremity. There is bilateral lower extremity edema, left slightly greater than right. There is tense swelling of the left thigh with some tenderness proximally and in the groin area. No tenderness present in the calves. There is a right plantar wound. No purulent drainage noted. IMPRESSION: A 26-year-old female, a long-standing diabetic, with end-stage renal disease on hemodialysis, presumed chronic osteomyelitis, now admitted with uncontrolled diabetes mellitus. Patient to complete an additional 16 calendar days of vancomycin for presumed osteomyelitis. Check vancomycin trough, ESR and C-reactive protein. For followup imaging studies in light of persistent pain. Would consider GI and orthopedic evaluations in light of continue pain and persistently elevated alkaline phosphatase. Thank you for the kind referral. FELICIA MARAVILLA M.D. [id number]
--- NOTE | 2017-05-15 13:24 | PN ---
Progress Note, Physician Chief Complaint: The patient continues to be having pain in her thighs. The LE are swollen. - Current Medication List Current Medications: Active Medications Apixaban (Eliquis -) 5 mg PO BID [facility] Last Admin: 05/15/17 10:06 Dose: 5 mg Clonidine (Catapres -) 0.3 mg PO TID [facility] Last Admin: 05/15/17 06:10 Dose: 0.3 mg Diphenhydramine HCl (Benadryl Injection -) 50 mg IVPUSH Q6H PRN PRN Reason: FOR ITCHING Last Admin: 05/15/17 12:25 Dose: 50 mg Emollient Ointment (Aquaphor -) 1 applic TP BID [facility] Last Admin: 05/15/17 10:10 Dose: 1 applic Gabapentin (Neurontin -) 200 mg PO TID [facility] Last Admin: 05/15/17 06:11 Dose: 200 mg Hydralazine HCl (Apresoline -) 75 mg PO TID [facility] Last Admin: 05/15/17 06:10 Dose: 75 mg Hydrocortisone (Anusol 2.5% Hc Cream -) 1 applic TP BID [facility] Last Admin: 05/15/17 10:10 Dose: 1 applic Insulin Aspart (Novolog Vial Sliding Scale -) 1 vial SQ ACHS [facility] PRN Reason: Protocol Last Admin: 05/15/17 11:40 Dose: Not Given Insulin Detemir (Levemir Vial) 16 units SQ BID@0700,2200 [facility] Last Admin: 05/15/17 06:12 Dose: 16 units Labetalol HCl (Normodyne -) 400 mg PO TID [facility] Last Admin: 05/15/17 06:11 Dose: 400 mg Losartan Potassium (Cozaar -) 100 mg PO DAILY [facility] Last Admin: 05/15/17 10:06 Dose: 100 mg Mupirocin (Bactroban 2% Ointment -) 1 applic TP DAILY [facility] Last Admin: 05/15/17 10:11 Dose: 1 applic Nifedipine (Procardia Xl -) 30 mg PO BID [facility] Last Admin: 05/15/17 10:06 Dose: 30 mg Oxycodone HCl (Roxicodone -) 10 mg PO Q4H PRN PRN Reason: PAIN LEVEL 4 - 6 Last Admin: 05/15/17 10:06 Dose: 10 mg Sevelamer Carbonate (Renvela -) 1,600 mg PO TIDCM [facility] Last Admin: 05/15/17 12:24 Dose: 1,600 mg Sodium Chloride ([place] Nasal [place] -) 2 spray NS BID PRN PRN Reason: NASAL CONGESTION - Objective Vital Signs: Vital Signs Temperature 98.0 F 05/15/17 09:15 Pulse Rate 92 H 05/15/17 09:15 Respiratory Rate 20 05/15/17 09:15 Blood Pressure 152/68 05/15/17 09:15 O2 Sat by Pulse Oximetry (%) 96 05/15/17 08:06 Constitutional: Yes: Anxious, Mild Distress HENT: Yes: Atraumatic Neck: Yes: Supple Cardiovascular: Yes: S1, S2 Respiratory: Yes: Regular, CTA Bilaterally Gastrointestinal: Yes: Normal Bowel Sounds, Soft Musculoskeletal: Yes: Muscle Pain, Other (Swollen tender LE) Edema: LLE: 2+, RLE: 2+ Neurological: Yes: Alert, Oriented Psychiatric: Yes: Alert, Oriented Labs: CBC, BMP 05/14/17 16:45 05/14/17 16:45 INR, PTT INR 1.22 (0.82-1.09) H 05/13/17 00:01 Problem List - Problems (1) Diabetes mellitus, insulin dependent (IDDM), uncontrolled Code(s): E10.65 - TYPE 1 DIABETES MELLITUS WITH HYPERGLYCEMIA (2) Pain Code(s): R52 - PAIN, UNSPECIFIED (3) ESRD (end stage renal disease) on dialysis Code(s): N18.6 - END STAGE RENAL DISEASE; Z99.2 - DEPENDENCE ON RENAL DIALYSIS (4) HTN (hypertension) Code(s): I10 - ESSENTIAL (PRIMARY) HYPERTENSION (5) Anemia Code(s): D64.9 - ANEMIA, UNSPECIFIED Qualifiers: Folate deficiency anemia type: dietary (6) Diabetic foot infection Code(s): E11.69 - TYPE 2 DIABETES MELLITUS WITH OTHER SPECIFIED COMPLICATION; L08.9 - LOCAL INFECTION OF THE SKIN AND SUBCUTANEOUS TISSUE, UNSP (7) Diabetic foot ulcer Code(s): E11.621 - TYPE 2 DIABETES MELLITUS WITH FOOT ULCER; L97.509 - NON- PRESSURE CHRONIC ULCER OTH PRT UNSP FOOT W UNSP SEVERITY Qualifiers: Diabetes mellitus type: type 1 Laterality: right Qualified Code(s): E10.621 - Type 1 diabetes mellitus with foot ulcer Assessment/Plan This is a 26 y/o F with PMH ESRD, IDDM, HTN, Myxoma s/p removal who presented to ER with complaint of malaise and altered vision. The patient is extremely non-compliant with dialysis, diet, medications. Some of the noticeable features of her lab profile is worth discussing. Her Serum ALP is extremely elevated (9179). Her Serum Calcium is trending low, and her recent Phosphorous is 7.0. Her iPTH is also markedly elevated. 2138. The patient is on Sevelamer as Phosphate binder. In the setting of HypoCalcemia , will add calcium acetate also. Of note is the CT Scan finding of extensive bone erosion and bone resorptions. This to me is all related to Hyperparathyroidism. Bone biopsy with special staining in a Metabolic bone lab is the ideal next step. Will attempt to contact a Metabolic Bone disease lab. Will NOT start Cinacalcet at this point because of the low Serum Calcium. Once the corrected Serum Calcium is >9 mg/dL, could start Cinacalcet in an attempt to improve PTH. Discussed with Dr. Saha. Thank you. Susie Peter MD
--- NOTE | 2017-05-15 13:27 | PN ---
Progress Note (short form) - Note Progress Note: continues to have left upper thigh and pelvic pain readmitted for hyperglycemia remains on vancomycin no fevers ct scan pelvis and leg with increased bony erosion Left pubic bone and increased muscle enlargement Vital Signs Period Temp Pulse Resp BP Sys/Ames Pulse Ox Last 24 Hr 97.7 F-99.2 F 67-94 18-20 135-197/53-115 96-99 +edema cor-rrr lungs clear abd soft,nt ext +swelling left upper thigh CBC, BMP 05/14/17 16:45 05/14/17 16:45 vanco trough 15 Laboratory Tests 04/16/17 05/13/17 05:40 04:00 Alkaline Phosphatase 1979 H PTH Intact 2138 H a/p d/w renal- could this all be bone disease related to PTH? I am not sure if we will be able to make a further diagnosis she may benefit from transfer to a tertiary care center for ortho/metabolic bone evaluation prior pubic bone cultures last admission are all negative to date esrd/hd dm- poorly controlled MRSA foot infection-on vancomycin per levels
--- NOTE | 2017-05-15 16:02 | PN ---
Physical Exam: SUBJECTIVE: Patient seen and examinedat bedside. Pt c/o feeling "wiped out." OBJECTIVE: Vital Signs Period Temp Pulse Resp BP Sys/Ames Pulse Ox Last 24 Hr 97.7 F-99.2 F 79-94 18-22 135-197/63-115 96-99 GENERAL: The patient is awake, alert, and fully oriented, in no acute distress. LUNGS: CTAB. HEART: RRR, S1, S2. No m/r/g. ABDOMEN: SNTND. +BS EXTREMITIES: 2+ pulses. LUE A-V fistula (+) bruit (+) thrill NEUROLOGICAL: Cranial nerves II through XII grossly intact. Normal speech, gait not observed. PSYCH: Normal mood, normal affect. SKIN: multiple 0.25cm flat brown lesions to back Laboratory Results - last 24 hr 05/14/17 05/14/17 05/14/17 16:45 16:45 16:45 WBC 9.0 RBC 3.13 L Hgb 8.6 L D Hct 27.3 L MCV 87.4 MCH 27.4 MCHC 31.3 L RDW 17.7 H Plt Count 237 MPV 10.8 D Neutrophils % 77.1 Lymphocytes % 5.8 L Monocytes % 14.6 H D Eosinophils % 2.1 D Basophils % 0.4 ESR Sodium 131 L Potassium 4.7 Chloride 94 L Carbon Dioxide 23 Anion Gap 14 BUN 41 H Creatinine 5.4 H POC Glucometer Random Glucose 553 H* Calcium 7.9 L C-Reactive Protein Random Vancomycin 15.523 05/14/17 05/14/17 05/14/17 16:45 16:45 21:21 WBC RBC Hgb Hct MCV MCH MCHC RDW Plt Count MPV Neutrophils % Lymphocytes % Monocytes % Eosinophils % Basophils % ESR 81 H Sodium Potassium Chloride Carbon Dioxide Anion Gap BUN Creatinine POC Glucometer 481 Random Glucose Calcium C-Reactive Protein 7.0 H Random Vancomycin 05/15/17 05/15/17 06:07 11:43 WBC RBC Hgb Hct MCV MCH MCHC RDW Plt Count MPV Neutrophils % Lymphocytes % Monocytes % Eosinophils % Basophils % ESR Sodium Potassium Chloride Carbon Dioxide Anion Gap BUN Creatinine POC Glucometer 190 139 Random Glucose Calcium C-Reactive Protein Random Vancomycin Active Medications Generic Name Dose Route Start Last Admin Trade Name Freq PRN Reason Stop Dose Admin Apixaban 5 mg 05/13/17 22:00 02/10/18 10:06 Eliquis - PO 5 mg BID [facility] Administration Calcium Acetate 667 mg 05/15/17 17:30 Phoslo - PO TIDCM [facility] Clonidine 0.3 mg 05/13/17 14:00 05/15/17 14:53 Catapres - PO 0.3 mg TID [facility] Administration Diphenhydramine HCl 50 mg 05/14/17 15:09 05/15/17 12:25 Benadryl Injection - IVPUSH 50 mg Q6H PRN Administration FOR ITCHING Emollient Ointment 1 applic 05/14/17 15:28 05/15/17 10:10 Aquaphor - TP 1 applic BID [facility] Administration Gabapentin 200 mg 05/13/17 14:00 05/15/17 14:53 Neurontin - PO 200 mg TID [facility] Administration Hydralazine HCl 75 mg 05/13/17 14:00 05/15/17 14:52 Apresoline - PO 75 mg TID [facility] Administration Hydrocortisone 1 applic 05/14/17 15:28 05/15/17 10:10 Anusol 2.5% Hc Cream - TP 1 applic BID [facility] Administration Insulin Aspart 1 vial 05/13/17 07:00 05/15/17 11:40 Novolog Vial Sliding Scale - SQ Not Given [facility] Protocol Insulin Detemir 16 units 05/13/17 22:00 05/15/17 06:12 Levemir Vial SQ 16 units BID@0700,2200 [facility] Administration Labetalol HCl 400 mg 05/13/17 14:00 05/15/17 14:53 Normodyne - PO 400 mg TID [facility] Administration Losartan Potassium 100 mg 05/13/17 10:00 05/15/17 10:06 Cozaar - PO 100 mg DAILY [facility] Administration Mupirocin 1 applic 05/14/17 10:00 05/15/17 10:11 Bactroban 2% Ointment - TP 1 applic DAILY [facility] Administration Nifedipine 30 mg 05/13/17 10:00 05/15/17 11:00 Procardia Xl - PO Not Given BID [facility] Oxycodone HCl 10 mg 05/14/17 15:28 05/15/17 10:06 Roxicodone - PO 10 mg Q4H PRN Administration PAIN LEVEL 4 - 6 Sevelamer Carbonate 1,600 mg 05/13/17 12:00 05/15/17 12:24 Renvela - PO 1,600 mg TIDCM [facility] Administration Sodium Chloride 2 spray 05/13/17 08:27 [place] Nasal [place] - NS BID PRN NASAL CONGESTION IMAGING: CT/PELVIS CT WITHOUT CONTRAST Impression: 1. Interval increased extent of erosions in the left pubic bone since 04/14/2017 with confluent surrounding fluid/soft tissue. A 1.4 x 1.1 cm rounded hypodensity in this region is nonspecific, and could be infectious collection/abscess, hematoma or necrotic tissue. A brown tumor could be considered in the setting of primary or secondary hyperparathyroidism. Please correlate clinically, with serum markers. 2. Interval increased extent and degree of muscular enlargement with confluent hypoattenuation/ fluid in the overlying left pelvic muscles extending into the medial left thigh, compatible with a myositis. No sizable focal intramuscular collection identified, however, evaluation is limited without IV contrast. 3. Relatively symmetric bone resorption along bilateral iliac bones with widening of the sacroiliac joints and mild subperiosteal bone resorption along the femoral heads, grossly unchanged from the 04/14/2017 CT. Please correlate for hyperparathyroidism in this patient with renal osteodystrophy. A bilateral, symmetric sacroiliitis is not entirely excluded. Please correlate clinically. 4. The inferior extent of this CT does not include the gastrocnemius muscles or remainder of the calves. 5. Prominent confluent body wall edema surrounding the pelvis, lower extremities and abdominal wall. Reported By: Kimberly Stallings DO 05/14/17 9052 US/DUPLEX VASCUL US-1 LEG Impression: 1. No evidence of left lower extremity deep vein thrombosis, as above. 2. Approximately 8.8 cm demarcated, heterogeneous masslike structure within the medial left groin could be enlarged/ inflamed muscle in the setting of myositis. Clinical correlation and follow-up recommended. 3. Approximately 2.9 cm hypoechoic lesion in the left popliteal fossa, presumably a Wilcox's cyst. Reported By: Kimberly Stallings DO 05/14/17 0543 ASSESSMENT/PLAN: A: 26 year old female with a significant past medical history of ESRD, hypertension , diabetes, DVT, PE (on Eliquis), home oxygen dependent admitted after missing HD with complaints of vision and hearing alteration, found to be in HHNK. P: L groin swelling, tenderness - Doppler as above - CT as above - Recent bx negative for osteomyelitis - Given CT findings, pt may benefit from transfer to tertiary care center for extensive testing of renal osteodystrophy HTN Urgency - Resolved HTN - Procardia 30mg BID - Losartan 100mg po daily - Labetolol 400mg TID - Hydralazine 75mg TID - Catapress 0.3mg TID - BP goal <140/90 HHNK - Resolved DM II - ISS - FS qACHS - Levemir 16units BID ESRD M-W- - HD yesterday - Vanco on HD - benadryl s/p HD for pruritis - hydrocortisone cream - Sevelamer - Renal following Right plantar abscess - s/p I&D 04/21 - Continue 16 more days vanco with HD - Daily Hx of DVT/PE - Eliquis 5mg po bid - Pt has stopped taking d/t insurance problem - will need to make arrangements for outpatient treatment Elevated Alk phos - In absence of elevated LFTs, likely due to elevated PTH 2/2 ESRD F/E/N - renal diet - replete per renal PPX - Eliquis Visit type - Emergency Visit Emergency Visit: Yes ED Registration Date: 05/13/17 Care time: The patient presented to the Emergency Department on the above date and was hospitalized for further evaluation of their emergent condition. - New Patient This patient is new to me today: Yes Date on this admission: 05/15/17 - Critical Care Critical Care patient: No
[2017-05-15] MEDS: CALCIUM ACETATE 667 MG CAPSULE (FP) PO SCH (16:59)
[2017-05-15] MEDS ORDERED: SODIUM CHLORIDE NASAL SPRAY 44 ML BOTTLE NS PRN (20:43)
[2017-05-16] MEDS: oxyCODONE HCL 5 MG TABLET PO PRN ×3 (06:02→23:20)
[2017-05-16] MEDS: GABAPENTIN 100 MG CAPSULE (FP) PO SCH ×3 (06:04→21:46)
[2017-05-16] MEDS: cloNIDine HCL 0.1 MG TABLET PO SCH ×3 (06:04→21:47)
[2017-05-16] MEDS: LABETALOL HCL 200 MG TABLET (FP) PO SCH ×3 (06:04→21:47)
[2017-05-16] MEDS: hydrALAZINE HCL 50 MG TABLET (FP) PO SCH ×3 (06:04→21:46)
[2017-05-16] MEDS: INSULIN DETEMIR 100 UNITS/ML MDV SQ SCH ×2 (06:05→21:45)
[2017-05-16] MEDS: INSULIN SLIDING SCALE (NOVOLOG) 1 VIAL SQ SCH ×4 (06:05→21:48)
[2017-05-16] MEDS ORDERED: INSULIN (NOVOLOG) ASPART 100 UNITS/ML 10ML VIAL ONE ×2 (06:31→23:58)
[2017-05-16 07:42] LABS: BASO % 0.8 % (0-2.0); EOS % 4.2 % (0-4.5); HEMATOCRIT 27.9 % (32.4-45.2); HEMOGLOBIN 8.7 GM/dL (10.7-15.3); LYMPH % 13.7 % (8-40); MCH 26.8 pg (25.7-33.7); MCHC 31.4 g/dl (32.0-36.0); MEAN CELL VOLUME 85.5 fl (80-96); MEAN PLT VOLUME 9.3 fl (7.5-11.1); MONO % 14.3 % (3.8-10.2); PLATELET COUNT 271 K/MM3 (134-434); RBC 3.26 M/mm3 (3.60-5.2); RDW 16.8 % (11.6-15.6); WHITE BLOOD COUNT 7.7 K/mm3 (4.0-10.0)
[2017-05-16 08:08] LABS: CHLORIDE 98 mmol/L (98-107); POTASSIUM 3.9 mmol/L (3.5-5.1); SODIUM 135 mmol/L (136-145)
[2017-05-16 08:27] LABS: ALBUMIN 2.8 g/dl (3.4-5.0); ALK PHOS 1501 U/L (45-117); ANION GAP 11 (8-16); BILIRUBIN,TOTAL 0.7 mg/dL (0.2-1.0); BLOOD UREA NITROGEN 40 mg/dL (7-18); CALCIUM 8.1 mg/dL (8.5-10.1); CO2 26 mmol/L (21-32); CREATININE 5.2 mg/dL (0.55-1.02); GLUCOSE,RANDOM 215 mg/dL (74-106); PHOSPHOROUS 4.9 mg/dL (2.5-4.9); SGOT/AST 22 U/L (15-37); SGPT/ALT 23 U/L (12-78); TOT PROT 8.1 g/dl (6.4-8.2)
[2017-05-16] MEDS: MUPIROCIN 2% TOPICAL OINTMENT 22 GM TUBE TP SCH (09:22)
[2017-05-16] MEDS: LOSARTAN POTASSIUM 50 MG TABLET (FP) PO SCH ×2 (09:22)
[2017-05-16] MEDS: MINERAL OIL/PET HY-PHL TOPICAL OINTMENT 454 GM JAR TP SCH ×2 (09:22→21:58)
[2017-05-16] MEDS: CALCIUM ACETATE 667 MG CAPSULE (FP) PO SCH ×3 (09:23→17:19)
[2017-05-16] MEDS: APIXABAN 5 MG TABLET PO SCH ×2 (09:23→21:47)
[2017-05-16] MEDS: SEVELAMER CARBONATE 800 MG TAB (FP) PO SCH ×3 (09:24→17:19)
[2017-05-16] MEDS: NIFEdipine E.R. 30 MG TABLET (FP) PO SCH ×2 (09:24→21:46)
[2017-05-16] MEDS: HYDROCORTISONE 2.5% TOPICAL CREAM 30 GM TUBE TP SCH ×2 (09:29→21:58)
--- NOTE | 2017-05-16 14:55 | PN ---
Physical Exam: SUBJECTIVE: Patient seen and examined OBJECTIVE: Vital Signs Period Temp Pulse Resp BP Sys/Ames Pulse Ox Last 24 Hr 97.5 F-98.3 F 78-84 18-20 140-145/72-92 97 GENERAL: The patient is awake, alert, and fully oriented, in no acute distress. LUNGS: CTAB. HEART: RRR, S1, S2. No m/r/g. ABDOMEN: SNTND. +BS EXTREMITIES: 2+ pulses. LUE A-V fistula (+) bruit (+) thrill NEUROLOGICAL: Cranial nerves II through XII grossly intact. Normal speech, gait not observed. PSYCH: Normal mood, normal affect. SKIN: multiple 0.25cm flat brown lesions to back Laboratory Results - last 24 hr 05/15/17 05/15/17 05/16/17 16:42 21:45 05:59 WBC RBC Hgb Hct MCV MCH MCHC RDW Plt Count MPV Neutrophils % Lymphocytes % Monocytes % Eosinophils % Basophils % Sodium Potassium Chloride Carbon Dioxide Anion Gap BUN Creatinine Creat Clearance w eGFR POC Glucometer 136 322 242 Random Glucose Calcium Phosphorus Total Bilirubin AST ALT Alkaline Phosphatase Total Protein Albumin 05/16/17 05/16/17 05/16/17 07:00 07:00 11:49 WBC 7.7 RBC 3.26 L Hgb 8.7 L Hct 27.9 L MCV 85.5 MCH 26.8 MCHC 31.4 L RDW 16.8 H Plt Count 271 MPV 9.3 D Neutrophils % 67.0 Lymphocytes % 13.7 D Monocytes % 14.3 H Eosinophils % 4.2 D Basophils % 0.8 Sodium 135 L Potassium 3.9 Chloride 98 Carbon Dioxide 26 Anion Gap 11 BUN 40 H Creatinine 5.2 H Creat Clearance w eGFR 9.92 POC Glucometer 93 Random Glucose 215 H Calcium 8.1 L Phosphorus 4.9 Total Bilirubin 0.7 AST 22 ALT 23 Alkaline Phosphatase 1501 H Total Protein 8.1 Albumin 2.8 L Active Medications Generic Name Dose Route Start Last Admin Trade Name Freq PRN Reason Stop Dose Admin Apixaban 5 mg 05/13/17 22:00 05/16/17 09:23 Eliquis - PO 5 mg BID [facility] Administration Calcium Acetate 667 mg 05/15/17 17:30 05/16/17 12:13 Phoslo - PO 667 mg TIDCM [facility] Administration Clonidine 0.3 mg 05/15/17 22:00 05/16/17 06:04 Catapres - PO 0.3 mg TID [facility] Administration Diphenhydramine HCl 50 mg 05/14/17 15:09 05/16/17 06:02 Benadryl Injection - IVPUSH 50 mg Q6H PRN Administration FOR ITCHING Emollient Ointment 1 applic 05/14/17 15:28 05/16/17 09:22 Aquaphor - TP 1 applic BID [facility] Administration Gabapentin 200 mg 05/15/17 22:00 05/16/17 06:04 Neurontin - PO 200 mg TID [facility] Administration Hydralazine HCl 75 mg 05/15/17 22:00 05/16/17 06:04 Apresoline - PO 75 mg TID [facility] Administration Hydrocortisone 1 applic 05/14/17 15:28 05/16/17 09:29 Anusol 2.5% Hc Cream - TP 1 applic BID [facility] Administration Insulin Aspart 1 vial 05/15/17 22:00 05/16/17 11:50 Novolog Vial Sliding Scale - SQ Not Given ACHS [facility] Protocol Insulin Detemir 16 units 05/15/17 22:00 05/16/17 06:05 Levemir Vial SQ 16 units BID@0700,2200 [facility] Administration Labetalol HCl 400 mg 05/15/17 22:00 05/16/17 06:04 Normodyne - PO 400 mg TID [facility] Administration Losartan Potassium 100 mg 05/13/17 10:00 05/16/17 09:22 Cozaar - PO 100 mg DAILY [facility] Administration Mupirocin 1 applic 05/14/17 10:00 05/16/17 09:22 Bactroban 2% Ointment - TP 1 applic DAILY [facility] Administration Nifedipine 30 mg 05/15/17 22:00 05/16/17 09:24 Procardia Xl - PO 30 mg BID [facility] Administration Oxycodone HCl 10 mg 05/14/17 15:28 05/16/17 06:02 Roxicodone - PO 10 mg Q4H PRN Administration PAIN LEVEL 4 - 6 Sevelamer Carbonate 1,600 mg 05/16/17 08:00 05/16/17 12:13 Renvela - PO 1,600 mg TIDCM [facility] Administration Sodium Chloride 2 spray 05/15/17 20:43 [place] Nasal [place] - NS BID PRN NASAL CONGESTION IMAGING: CT/PELVIS CT WITHOUT CONTRAST Impression: 1. Interval increased extent of erosions in the left pubic bone since 04/14/2017 with confluent surrounding fluid/soft tissue. A 1.4 x 1.1 cm rounded hypodensity in this region is nonspecific, and could be infectious collection/abscess, hematoma or necrotic tissue. A brown tumor could be considered in the setting of primary or secondary hyperparathyroidism. Please correlate clinically, with serum markers. 2. Interval increased extent and degree of muscular enlargement with confluent hypoattenuation/ fluid in the overlying left pelvic muscles extending into the medial left thigh, compatible with a myositis. No sizable focal intramuscular collection identified, however, evaluation is limited without IV contrast. 3. Relatively symmetric bone resorption along bilateral iliac bones with widening of the sacroiliac joints and mild subperiosteal bone resorption along the femoral heads, grossly unchanged from the 04/14/2017 CT. Please correlate for hyperparathyroidism in this patient with renal osteodystrophy. A bilateral, symmetric sacroiliitis is not entirely excluded. Please correlate clinically. 4. The inferior extent of this CT does not include the gastrocnemius muscles or remainder of the calves. 5. Prominent confluent body wall edema surrounding the pelvis, lower extremities and abdominal wall. Reported By: Kimberly Stallings DO 05/14/17 1717 US/DUPLEX VASCUL US-1 LEG Impression: 1. No evidence of left lower extremity deep vein thrombosis, as above. 2. Approximately 8.8 cm demarcated, heterogeneous masslike structure within the medial left groin could be enlarged/ inflamed muscle in the setting of myositis. Clinical correlation and follow-up recommended. 3. Approximately 2.9 cm hypoechoic lesion in the left popliteal fossa, presumably a Wilcox's cyst. Reported By: Kimberly Stallings DO 05/14/17 0038 ASSESSMENT/PLAN: A: 26 year old female with a significant past medical history of ESRD, hypertension , diabetes, DVT, PE (on Eliquis), home oxygen dependent admitted after missing HD with complaints of vision and hearing alteration, found to be in HHNK. P: L groin swelling, tenderness - Doppler as above - CT as above - Recent bx negative for osteomyelitis - Given CT findings, will need further evaluation of renal osteodystrophy - case d/w Dr Peter who will contact [facility] for renal osteodystrophy evaluation as outpatient HTN Urgency - Resolved HTN - Procardia 30mg BID - Losartan 100mg po daily - Labetolol 400mg TID - Hydralazine 75mg TID - Catapress 0.3mg TID - BP goal <140/90 HHNK - Resolved DM II - ISS - FS qACHS - Levemir 16units BID ESRD M-W-F - HD yesterday - Vanco on HD - benadryl s/p HD for pruritis - hydrocortisone cream - Sevelamer - Renal following Right plantar abscess - s/p I&D 04/21 - Continue 14 more days vanco with HD Hx of DVT/PE - Eliquis 5mg po bid - Pt has stopped taking d/t insurance problem - will need to make arrangements for outpatient treatment Elevated Alk phos - In absence of elevated LFTs, likely due to elevated PTH 2/2 ESRD F/E/N - renal diet - replete per renal PPX - Eliquis Dispo- Requires continued inpatient treatment of acute medical condition Visit type - Emergency Visit Emergency Visit: Yes ED Registration Date: 05/13/17 Care time: The patient presented to the Emergency Department on the above date and was hospitalized for further evaluation of their emergent condition. - New Patient This patient is new to me today: No - Critical Care Critical Care patient: No
--- NOTE | 2017-05-16 15:43 | PN ---
Progress Note, Physician Chief Complaint: The patient continues to be having pain in her thighs, especially the left thigh. The LE are swollen. Otherwise feeling well. - Current Medication List Current Medications: Active Medications Apixaban (Eliquis -) 5 mg PO BID [facility] Last Admin: 05/16/17 09:23 Dose: 5 mg Calcium Acetate (Phoslo -) 667 mg PO TIDCM [facility] Last Admin: 05/16/17 12:13 Dose: 667 mg Clonidine (Catapres -) 0.3 mg PO TID [facility] Last Admin: 05/16/17 15:01 Dose: 0.3 mg Diphenhydramine HCl (Benadryl Injection -) 50 mg IVPUSH Q6H PRN PRN Reason: FOR ITCHING Last Admin: 05/16/17 14:56 Dose: 50 mg Emollient Ointment (Aquaphor -) 1 applic TP BID [facility] Last Admin: 05/16/17 09:22 Dose: 1 applic Gabapentin (Neurontin -) 200 mg PO TID [facility] Last Admin: 05/16/17 15:01 Dose: 200 mg Hydralazine HCl (Apresoline -) 75 mg PO TID [facility] Last Admin: 05/16/17 14:59 Dose: 75 mg Hydrocortisone (Anusol 2.5% Hc Cream -) 1 applic TP BID [facility] Last Admin: 05/16/17 09:29 Dose: 1 applic Insulin Aspart (Novolog Vial Sliding Scale -) 1 vial SQ ACHS [facility] PRN Reason: Protocol Last Admin: 05/16/17 11:50 Dose: Not Given Insulin Detemir (Levemir Vial) 16 units SQ BID@0700,2200 [facility] Last Admin: 05/16/17 06:05 Dose: 16 units Labetalol HCl (Normodyne -) 400 mg PO TID [facility] Last Admin: 05/16/17 15:02 Dose: 400 mg Losartan Potassium (Cozaar -) 100 mg PO DAILY [facility] Last Admin: 05/16/17 09:22 Dose: Not Given Mupirocin (Bactroban 2% Ointment -) 1 applic TP DAILY [facility] Last Admin: 05/16/17 09:22 Dose: 1 applic Nifedipine (Procardia Xl -) 30 mg PO BID [facility] Last Admin: 05/16/17 09:24 Dose: 30 mg Oxycodone HCl (Roxicodone -) 10 mg PO Q4H PRN PRN Reason: PAIN LEVEL 4 - 6 Last Admin: 05/16/17 14:58 Dose: 10 mg Sevelamer Carbonate (Renvela -) 1,600 mg PO TIDCM [facility] Last Admin: 05/16/17 12:13 Dose: 1,600 mg Sodium Chloride ([place]al [place] -) 2 spray NS BID PRN PRN Reason: NASAL CONGESTION - Objective Vital Signs: Vital Signs Temperature 98.3 F 05/16/17 14:00 Pulse Rate 80 05/16/17 14:00 Respiratory Rate 18 05/16/17 14:00 Blood Pressure 144/74 05/16/17 14:00 O2 Sat by Pulse Oximetry (%) 97 05/15/17 21:00 Constitutional: Yes: Mild Distress HENT: Yes: Normocephalic Neck: Yes: Trachea Midline Cardiovascular: Yes: S1, S2 Respiratory: Yes: Diminished Gastrointestinal: Yes: Normal Bowel Sounds Genitourinary: Yes: Anuria. No: CVA Tenderness - Left, CVA Tenderness - Right, Vaginal Bleeding Musculoskeletal: Yes: Back Pain, Muscle Pain, Muscle Weakness Neurological: Yes: Alert Labs: CBC, BMP 05/16/17 07:00 05/16/17 07:00 INR, PTT INR 1.22 (0.82-1.09) H 05/13/17 00:01 Problem List - Problems (1) Diabetes mellitus, insulin dependent (IDDM), uncontrolled Code(s): E10.65 - TYPE 1 DIABETES MELLITUS WITH HYPERGLYCEMIA (2) Pain Code(s): R52 - PAIN, UNSPECIFIED (3) ESRD (end stage renal disease) on dialysis Code(s): N18.6 - END STAGE RENAL DISEASE; Z99.2 - DEPENDENCE ON RENAL DIALYSIS (4) HTN (hypertension) Code(s): I10 - ESSENTIAL (PRIMARY) HYPERTENSION (5) Anemia Code(s): D64.9 - ANEMIA, UNSPECIFIED Qualifiers: Folate deficiency anemia type: dietary (6) Diabetic foot infection Code(s): E11.69 - TYPE 2 DIABETES MELLITUS WITH OTHER SPECIFIED COMPLICATION; L08.9 - LOCAL INFECTION OF THE SKIN AND SUBCUTANEOUS TISSUE, UNSP (7) Diabetic foot ulcer Code(s): E11.621 - TYPE 2 DIABETES MELLITUS WITH FOOT ULCER; L97.509 - NON- PRESSURE CHRONIC ULCER OTH PRT UNSP FOOT W UNSP SEVERITY Qualifiers: Diabetes mellitus type: type 1 Laterality: right Qualified Code(s): E10.621 - Type 1 diabetes mellitus with foot ulcer Assessment/Plan This is a 26 y/o F with PMH ESRD, IDDM, HTN, Myxoma s/p removal who presented to ER with complaint of malaise and altered vision. The patient is extremely non-compliant with dialysis, diet, medications. The patient's corrected Serum Calcium is slightly better. The metabolic bone w/u could be arranged as outpatient, and may not qualify for center-center transfer. If the Serum Calcium keeps getting better, will start on Cinacalcet. Next HD in AM. Thank you Susie Peter MD
[2017-05-17] MEDS: hydrALAZINE HCL 50 MG TABLET (FP) PO SCH ×2 (05:56→13:48)
[2017-05-17] MEDS: cloNIDine HCL 0.1 MG TABLET PO SCH ×2 (05:57→13:47)
[2017-05-17] MEDS: LABETALOL HCL 200 MG TABLET (FP) PO SCH ×2 (05:57→13:49)
[2017-05-17] MEDS: GABAPENTIN 100 MG CAPSULE (FP) PO SCH ×2 (05:57→13:46)
[2017-05-17] MEDS: INSULIN DETEMIR 100 UNITS/ML MDV SQ SCH (06:00)
[2017-05-17] MEDS ORDERED: INSULIN (NOVOLOG) ASPART 100 UNITS/ML 10ML VIAL ONE ×2 (06:00→17:02)
[2017-05-17] MEDS: INSULIN SLIDING SCALE (NOVOLOG) 1 VIAL SQ SCH ×3 (06:01→17:06)
[2017-05-17] MEDS: oxyCODONE HCL 5 MG TABLET PO PRN ×2 (06:32→13:43)
[2017-05-17] MEDS: SEVELAMER CARBONATE 800 MG TAB (FP) PO SCH ×3 (07:57→17:06)
[2017-05-17] MEDS: CALCIUM ACETATE 667 MG CAPSULE (FP) PO SCH ×3 (07:57→17:06)
[2017-05-17] MEDS ORDERED: EPOETIN ALFA 20,000 UNIT/1 ML VIAL IVPUSH ONE (09:00)
[2017-05-17 09:44] LABS: BASO % 0.8 % (0-2.0); EOS % 4.9 % (0-4.5); HEMATOCRIT 27.5 % (32.4-45.2); HEMOGLOBIN 8.5 GM/dL (10.7-15.3); LYMPH % 11.3 % (8-40); MCH 26.4 pg (25.7-33.7); MCHC 30.8 g/dl (32.0-36.0); MEAN CELL VOLUME 85.7 fl (80-96); MEAN PLT VOLUME 9.6 fl (7.5-11.1); MONO % 14.7 % (3.8-10.2); NEUT % 68.3 % (42.8-82.8); PLATELET COUNT 290 K/MM3 (134-434); RBC 3.21 M/mm3 (3.60-5.2); RDW 17.3 % (11.6-15.6); WHITE BLOOD COUNT 7.7 K/mm3 (4.0-10.0)
[2017-05-17 09:47] LABS: ALBUMIN 2.7 g/dl (3.4-5.0); ANION GAP 10 (8-16); BILIRUBIN,TOTAL 0.7 mg/dL (0.2-1.0); BLOOD UREA NITROGEN 57 mg/dL (7-18); CALCIUM 7.8 mg/dL (8.5-10.1); CHLORIDE 98 mmol/L (98-107); CO2 24 mmol/L (21-32); CREATININE 6.6 mg/dL (0.55-1.02); GLUCOSE,RANDOM 298 mg/dL (74-106); PHOSPHOROUS 5.8 mg/dL (2.5-4.9); POTASSIUM 4.5 mmol/L (3.5-5.1); SGOT/AST 19 U/L (15-37); SGPT/ALT 22 U/L (12-78); SODIUM 132 mmol/L (136-145); TOT PROT 7.8 g/dl (6.4-8.2)
[2017-05-17 10:05] LABS: ALK PHOS 1361 U/L (45-117)
[2017-05-17 10:33] VITALS: TEMP 98.2
--- NOTE | 2017-05-17 10:41 | PN ---
Progress Note, Physician History of Present Illness: Seen on hemodialysis C/O L groin and LE pain Afebrile Blood c/s no growth - Current Medication List Current Medications: Active Medications Apixaban (Eliquis -) 5 mg PO BID [facility] Last Admin: 05/16/17 21:47 Dose: 5 mg Calcium Acetate (Phoslo -) 667 mg PO TIDCM [facility] Last Admin: 05/17/17 07:57 Dose: 667 mg Clonidine (Catapres -) 0.3 mg PO TID [facility] Last Admin: 05/17/17 05:57 Dose: 0.3 mg Diphenhydramine HCl (Benadryl Injection -) 50 mg IVPUSH Q6H PRN PRN Reason: FOR ITCHING Last Admin: 05/17/17 06:33 Dose: 50 mg Emollient Ointment (Aquaphor -) 1 applic TP BID [facility] Last Admin: 05/16/17 21:58 Dose: 1 applic Gabapentin (Neurontin -) 200 mg PO TID [facility] Last Admin: 05/17/17 05:57 Dose: 200 mg Hydralazine HCl (Apresoline -) 75 mg PO TID [facility] Last Admin: 05/17/17 05:56 Dose: 75 mg Hydrocortisone (Anusol 2.5% Hc Cream -) 1 applic TP BID [facility] Last Admin: 05/16/17 21:58 Dose: 1 applic Insulin Aspart (Novolog Vial Sliding Scale -) 1 vial SQ ACHS [facility] PRN Reason: Protocol Last Admin: 05/17/17 06:01 Dose: 4 units Insulin Detemir (Levemir Vial) 16 units SQ BID@0700,2200 [facility] Last Admin: 05/17/17 06:00 Dose: 16 units Labetalol HCl (Normodyne -) 400 mg PO TID [facility] Last Admin: 05/17/17 05:57 Dose: 400 mg Losartan Potassium (Cozaar -) 100 mg PO DAILY [facility] Last Admin: 05/16/17 09:22 Dose: Not Given Mupirocin (Bactroban 2% Ointment -) 1 applic TP DAILY [facility] Last Admin: 05/16/17 09:22 Dose: 1 applic Nifedipine (Procardia Xl -) 30 mg PO BID [facility] Last Admin: 05/16/17 21:46 Dose: 30 mg Oxycodone HCl (Roxicodone -) 10 mg PO Q4H PRN PRN Reason: PAIN LEVEL 4 - 6 Last Admin: 05/17/17 06:32 Dose: 10 mg Sevelamer Carbonate (Renvela -) 1,600 mg PO TIDCM [facility] Last Admin: 05/17/17 07:57 Dose: 1,600 mg Sodium Chloride ([place]al [place] -) 2 spray NS BID PRN PRN Reason: NASAL CONGESTION - Objective Vital Signs: Vital Signs Temperature 98.2 F 05/17/17 08:55 Pulse Rate 80 05/17/17 09:30 Respiratory Rate 18 05/17/17 09:30 Blood Pressure 117/75 05/17/17 09:30 O2 Sat by Pulse Oximetry (%) 96 05/16/17 20:21 Constitutional: Yes: No Distress Eyes: Yes: Conjunctiva Clear Cardiovascular: Yes: Regular Rate and Rhythm, S1, S2 Respiratory: Yes: CTA Bilaterally Gastrointestinal: Yes: Normal Bowel Sounds, Soft. No: Tenderness Edema: Yes Edema: LLE: 2+, RLE: 2+ Labs: CBC, BMP 05/17/17 09:00 05/17/17 09:00 INR, PTT INR 1.22 (0.82-1.09) H 05/13/17 00:01 Assessment/Plan Presumed chronic osteomyelitis ESRD S/P uncontrolled diabetes mellitus Redose vancomycin per today's level Agree patient requires further evaluation for metabolic bone disease at a tertiary care center.
[2017-05-17 13:02] VITALS: BP 148/98; PULSE 90
[2017-05-17] MEDS: NIFEdipine E.R. 30 MG TABLET (FP) PO SCH (13:45)
[2017-05-17] MEDS: LOSARTAN POTASSIUM 50 MG TABLET (FP) PO SCH (13:45)
[2017-05-17] MEDS: APIXABAN 5 MG TABLET PO SCH (13:47)
[2017-05-17] MEDS: MUPIROCIN 2% TOPICAL OINTMENT 22 GM TUBE TP SCH (13:48)
[2017-05-17] MEDS: HYDROCORTISONE 2.5% TOPICAL CREAM 30 GM TUBE TP SCH (13:48)
[2017-05-17] MEDS: MINERAL OIL/PET HY-PHL TOPICAL OINTMENT 454 GM JAR TP SCH (13:48)
--- NOTE | 2017-05-17 15:28 | DS ---
Physical Exam: SUBJECTIVE: Patient seen and examined OBJECTIVE: Vital Signs Period Temp Pulse Resp BP Sys/Ames Pulse Ox Last 24 Hr 97.5 F-98.6 F 57-94 18-20 115-156/67-98 96 PHYSICAL EXAM GENERAL: The patient is awake, alert, and fully oriented, in no acute distress. HEAD: Normal with no signs of trauma. EYES: PERRL, extraocular movements intact, sclera anicteric, conjunctiva clear. ENT: Ears normal, nares patent, oropharynx clear without exudates, moist mucous membranes. NECK: Trachea midline, full range of motion, supple. LUNGS: Breath sounds equal, clear to auscultation bilaterally, no wheezes, no crackles, no accessory muscle use. HEART: Regular rate and rhythm, S1, S2 without murmur, rub or gallop. ABDOMEN: Soft, nontender, nondistended, normoactive bowel sounds, no guarding, no rebound, no hepatosplenomegaly, no masses. EXTREMITIES: 2+ pulses, warm, well-perfused, no edema. NEUROLOGICAL: Cranial nerves II through XII grossly intact. Normal speech, gait not observed. PSYCH: Normal mood, normal affect. SKIN: Warm, dry, normal turgor, no rashes or lesions noted. LABS Laboratory Results - last 24 hr 05/14/17 05/16/17 05/16/17 23:54 17:03 21:44 WBC RBC Hgb Hct MCV MCH MCHC RDW Plt Count MPV Neutrophils % Lymphocytes % Monocytes % Eosinophils % Basophils % Sodium Potassium Chloride Carbon Dioxide Anion Gap BUN Creatinine Creat Clearance w eGFR POC Glucometer 401 195 267 Random Glucose Calcium Phosphorus Total Bilirubin AST ALT Alkaline Phosphatase Total Protein Albumin Vancomycin Pre-Dose 05/17/17 05/17/17 05/17/17 05:55 09:00 09:00 WBC 7.7 RBC 3.21 L Hgb 8.5 L Hct 27.5 L MCV 85.7 MCH 26.4 MCHC 30.8 L RDW 17.3 H Plt Count 290 MPV 9.6 Neutrophils % 68.3 Lymphocytes % 11.3 Monocytes % 14.7 H Eosinophils % 4.9 H Basophils % 0.8 Sodium 132 L Potassium 4.5 Chloride 98 Carbon Dioxide 24 Anion Gap 10 BUN 57 H Creatinine 6.6 H Creat Clearance w eGFR 7.54 POC Glucometer 234 Random Glucose 298 H Calcium 7.8 L Phosphorus 5.8 H Total Bilirubin 0.7 AST 19 ALT 22 Alkaline Phosphatase 1361 H Total Protein 7.8 Albumin 2.7 L Vancomycin Pre-Dose 05/17/17 11:35 WBC RBC Hgb Hct MCV MCH MCHC RDW Plt Count MPV Neutrophils % Lymphocytes % Monocytes % Eosinophils % Basophils % Sodium Potassium Chloride Carbon Dioxide Anion Gap BUN Creatinine Creat Clearance w eGFR POC Glucometer Random Glucose Calcium Phosphorus Total Bilirubin AST ALT Alkaline Phosphatase Total Protein Albumin Vancomycin Pre-Dose 10.551 H HOSPITAL COURSE: Date of Admission:05/13/17 Date of Discharge: 05/17/17 Is on Eliquis. Checked with Lindy, script was filled on 05/03/17. Covered by insurance. Minutes to complete discharge: 35 Discharge Summary Reason For Visit: END STAGE RENAL FAILURE ON DIALYSIS PAIN Current Active Problems Diabetes mellitus, insulin dependent (IDDM), uncontrolled (Acute) Pain (Acute) ESRD (end stage renal disease) on dialysis (Chronic) HTN (hypertension) (Chronic) Condition: Stable - Instructions Referrals: Edna Calero MD [Primary Care Provider] - Disposition: HOME - Home Medications Comprehensive Discharge Medication List: Ambulatory Orders Gabapentin 200 mg PO TID 03/11/16 Sevelamer Carbonate [Renvela -] 1,600 mg PO TIDCM #60 tab 07/14/16 Acetaminophen [Tylenol .Regular Strength -] 325 mg PO Q6H PRN #0 tablet Losartan Potassium [Cozaar -] 100 mg PO DAILY 12/21/16 Labetalol HCl [Normodyne -] 400 mg PO TID #60 tablet 12/26/16 cloNIDine HCL [Catapres -] 0.3 mg PO TID tablet 12/26/16 Insulin Sliding Scale [Novolog Vial Sliding Scale -] 1 vial SQ ACHS units 04/30 Nifedipine ER [Procardia XL -] 30 mg PO BID #60 tab.er.24 04/30/17 Sodium Chloride Nasal [place] [[place] Nasal [place] -] 2 spray NS BID PRN #1 bot 04/30/17 hydrALAZINE HCL [Apresoline -] 75 mg PO TID #90 tablet 04/30/17 Apixaban [Eliquis -] 5 mg PO BID tablet 05/17/17 Insulin (Levemir) [Levemir Vial] 16 units SQ BID@0700,2200 ml 05/17/17 This patient is new to me today: Yes Date on this admission: 05/17/17 Emergency Visit: Yes ED Registration Date: 05/13/17 Care time: The patient presented to the Emergency Department on the above date and was hospitalized for further evaluation of their emergent condition. Critical Care patient: No - Discharge Referral Referred to [facility] Med P.C.: No
[2017-05-18 06:06] LABS: HBSAG SCREEN Negative (Negative); HEP B CORE AB, TOT Negative (Negative)
== END 2017-05-17 19:48 | disposition home or self-care (01) | DRG 637 ==
LOC: JER 22:32 → JERBED 05-13 03:12 → UNDOADMIN 05-13 04:13 → JERBED 05-13 04:13 → J6S 05-13 16:00
PROVIDERS: ADMIT Internal Medicine; ATTEND Nurse Practitioner Acute Care
PROC: 5A1D70Z Performance of Urinary Filtration, Intermittent, Less than 6 Hours Per Day (ICD-10-PCS; principal; 2017-05-13)
PROC: 5A1D70Z Performance of Urinary Filtration, Intermittent, Less than 6 Hours Per Day (ICD-10-PCS; 2017-05-13)
PROC: 5A1D70Z Performance of Urinary Filtration, Intermittent, Less than 6 Hours Per Day (ICD-10-PCS; 2017-05-13)
DX: E10.65 Type 1 diabetes mellitus with hyperglycemia (principal); N18.6 End stage renal disease; L97.518 Non-pressure chronic ulcer of other part of right foot with other specified severity; L02.611 Cutaneous abscess of right foot; I12.0 Hypertensive chronic kidney disease with stage 5 chronic kidney disease or end stage renal disease; M86.68 Other chronic osteomyelitis, other site; E10.621 Type 1 diabetes mellitus with foot ulcer; I16.0 Hypertensive urgency; E10.22 Type 1 diabetes mellitus with diabetic chronic kidney disease; Z86.711 Personal history of pulmonary embolism; Z86.718 Personal history of other venous thrombosis and embolism; Z86.14 Personal history of Methicillin resistant Staphylococcus aureus infection
CPT/HCPCS: 36415; 71045-TC; 72192-TC; 73700-TC-RT; 80048; 80053; 82009; 82565; 82962; 83690; 83735; 83880; 84100; 84484; 84520; 84703; 85025; 85610; 85651; 86140; 86704; 86706; 86708; 86803; 86850; 86900; 86901; 87040; 87340; 93005; 93010; 93971-TC; 94010; 99285-25; G0480; J0735; J0885; J1644

== ENCOUNTER 2017-06-03 06:27 | Inpatient (IN) | payer OTHER ==
--- NOTE | 2017-06-03 08:04 | PDOC ---
Attending Attestation - Resident Resident Name: Piter Red - ED Attending Attestation I have performed the following: I have examined & evaluated the patient, The case was reviewed & discussed with the resident, I agree w/resident's findings & plan - HPI HPI: 06/03/17 07:59 Patient with a history of diabetes mellitus, type I, end-stage renal disease on hemodialysis, last hemodialyzed on Wednesday, missed dialysis yesterday. Usual schedule is Wednesday, Wednesday, Wednesday. Wednesday dialysis was done because she had missed another dialysis session. Patient currently presents feeling generalized weakness. She also has bilateral lower extremity edema. She stopped taking her Ty was for pulmonary embolism because she has been having some recent nosebleeds. She also complains of chronic, mild, shortness of breath. - Physicial Exam PE: 06/03/17 08:02 The patient is awake and alert, she appears generally weak. Her lungs are clear without crackles. Her heart is regular rhythm with positive S4. The PMI is displaced laterally and dyskinetic. The abdomen is benign. Extremities reveal bilateral pitting edema up to the thighs. The right foot has an old, plantar wound with pink and white granulation tissue. There is no erythema or discharge. - Medical Decision Making 06/03/17 08:03 End-stage renal disease with poor compliance with dialysis regimen. Patient presents with weakness which may be related to under dialysis and uremia. Other possibilities include fluid overload with her dyspnea, although her lungs are clear. Dyspnea also could be related to hypertension out of control and poor cardiac function. The right foot ulcer does not appear acutely infected. Patient will be worked up with full laboratory evaluation, cardiac enzymes, ESR and CRP given her chronic right foot ulcer, twelve-lead EKG was performed and does not show any peaked T waves. There is poor R-wave progression across the precordial leads suggesting possible old anterior wall IA. Patient will likely require admission for urgent dialysis. Other plans pending results.
--- NOTE | 2017-06-03 08:04 | PDOC ---
History of Present Illness - General Chief Complaint: Weakness Stated Complaint: WEAKNESS Time Seen by Provider: 06/03/17 07:12 History Source: Patient Exam Limitations: No Limitations - History of Present Illness Initial Comments: 06/03/17 08:04 Patient is a 26F with history of ESRD normally on MWF dialysis, IDDM, HTN, PE and chronic osteo here today complaining of generalized weakness for the past few days. She states that she missed dialysis on Wednesday, so she was switched to a [facility] schedule. Per chart review, patient has a history of poor adherence to medication. She took most of her home blood pressure medications after having vitals done in triage. She is complaining of associated shortness of breath, mild chest pain, hip pain,and increased leg swelling. She reports that she stopped taking eliquis recently due to repeated epistaxis. Patient denies trauma , fevers, chills, nausea, vomiting. Past History - Past Medical History Allergies/Adverse Reactions: Allergies Allergy/AdvReac Type Severity Reaction Status Date / Time No Known Drug Allergies Allergy Verified 04/12/17 15:14 Home Medications: Ambulatory Orders Gabapentin 200 mg PO TID 03/11/16 Sevelamer Carbonate [Renvela -] 1,600 mg PO TIDCM #60 tab 07/14/16 Losartan Potassium [Cozaar -] 100 mg PO DAILY 12/21/16 Labetalol HCl [Normodyne -] 400 mg PO TID #60 tablet 12/26/16 cloNIDine HCL [Catapres -] 0.3 mg PO TID tablet 12/26/16 Insulin (Levemir) [Levemir Vial] 16 units SQ BID@0700,2200 ml 05/17/17 Diphenhydramine HCl 25 mg PO DAILY 06/03/17 Hydrocodone/Acetaminophen [Vicodin Hp 10-300 mg Tablet] 1 tab PO Q6H PRN Insulin Sliding Scale [Novolog Vial Sliding Scale -] 0 vial SQ ACHS 06/03/17 Nifedipine ER [Procardia Xl -] 30 mg PO DAILY 06/03/17 Anemia: Yes Asthma: No Cancer: No Cardiac Disorders: No CVA: No COPD: No CHF: No DVT: No Dementia: No Diabetes: Yes (15 yrs Insulin dependent) Dialysis: Yes (M/W/F) Disorders: No HTN: Yes Hypercholesterolemia: No Kidney Stones: (ESRD, Dialysis Mon, W, F, Left arm Fistula) Liver Disease: No Seizures: Yes (Several yrs ago, no medication) Thyroid Disease: No - Surgical History Abdominal Surgery: No Appendectomy: No Cardiac Surgery: Yes (myxoma removed 2013) Cholecystectomy: Yes Lung Surgery: No Neurologic Surgery: No Orthopedic Surgery: Yes (foot sx x2) - Immunization History Immunization Up to Date: Yes - Suicide/Smoking/Psychosocial Hx Smoking Status: No Smoking History: Never smoked Have you smoked in the past 12 months: No Number of Cigarettes Smoked Daily: 10 Information on smoking cessation initiated: No Hx Alcohol Use: No Drug/Substance Use Hx: No Substance Use Type: None Hx Substance Use Treatment: No Review of Systems - Review of Systems Able to Perform ROS?: Yes Comments:: 06/03/17 08:19 GENERAL/CONSTITUTIONAL: No fever or chills. Positive for diffuse weakness. HEAD, EYES, EARS, NOSE AND THROAT: No change in vision. No sore throat. CARDIOVASCULAR: Positive for chest pain or shortness of breath RESPIRATORY: No cough, wheezing, or hemoptysis. GASTROINTESTINAL: No nausea, vomiting, diarrhea or constipation. GENITOURINARY: No dysuria, frequency, or change in urination. Patient does not make urine. MUSCULOSKELETAL: Positive for hip and lower back pain. SKIN: No rash NEUROLOGIC: No headache, vertigo, loss of consciousness, or change in strength/ sensation. HEMATOLOGIC/LYMPHATIC: Positive for history of anemia and blood clots. ALLERGIC/IMMUNOLOGIC: No hives or skin allergy. *Physical Exam - Vital Signs Last Vital Signs Temp Pulse Resp BP Pulse Ox 98.1 F 87 18 207/106 100 06/03/17 06:55 06/03/17 06:55 06/03/17 06:55 06/03/17 06:55 06/03/17 06:55 - Physical Exam Comments: 06/03/17 08:20 GENERAL: Awake, alert, and fully oriented, in no acute distress HEAD: No signs of trauma, normocephalic, atraumatic EYES: PERRLA, EOMI, sclera anicteric, conjunctiva clear ENT: Auricles normal inspection, hearing grossly normal, nares patent, oropharynx clear without exudates. Moist mucosa NECK: Normal ROM, supple, no lymphadenopathy, JVD, or masses LUNGS: No distress, speaks full sentences, clear to auscultation bilaterally HEART: Regular rate and rhythm, normal S1 and S2, no murmurs, rubs or gallops, peripheral pulses normal and equal bilaterally. ABDOMEN: Soft, nontender, normoactive bowel sounds. No guarding, no rebound. No masses EXTREMITIES: Diffuse edema, pitting, right more than left No clubbing or cyanosis. NEUROLOGICAL: Cranial nerves II through XII grossly intact. Normal speech, no focal sensorimotor deficits ED Treatment Course - LABORATORY CBC & Chemistry Diagram: 06/03/17 07:56 06/03/17 14:30 - RADIOLOGY Radiology Studies Ordered: Category Date Time Status CHEST X-RAY PORTABLE* [RAD] Stat Radiology 06/03/17 07:25 Ordered Medical Decision Making - Medical Decision Making 06/03/17 08:21 26F with ESRD MWF, IDDM, HTN, PE, chronic hip pain here today complaining of weakness. Vital signs notable for blood pressure of 207/106. Repeat blood pressure 179/97. Patient took home meds after triage, with exception of nifedipine ER 30. Will give that now along with percocet for pain control. Differential diagnosis includes, but is not limited to: DVT, HHS, DKA, occult infection, uremia, electrolyte derangement. Will evaluate with cbc, cmp, trop, pt/inr, vbg, lactate, cxr, ekg, b/l dvt us studies. EKG shows normal sinus rhythm, rate 84. Normal axis. Poor r wave progression. No st elevation/depression. No significant t wave abnormalities. Normal AR/QTc/ QRS intervals. 06/03/17 10:11 Laboratory Tests 06/03/17 06/03/17 06/03/17 07:56 07:56 07:56 WBC 5.4 Hgb 8.4 L Hct 27.7 L INR 1.21 H VBG pH Lactic Acid Serum , Qual Negative 06/03/17 06/03/17 07:56 08:02 WBC Hgb Hct INR VBG pH 7.20 L* Lactic Acid 1.2 Serum , Qual CBC at baseline. Lactic negative. VBG shows ph of 7.20. Acetone added. 06/03/17 10:11 Laboratory Tests 06/03/17 07:56 Sodium 123 L* Potassium 5.1 Anion Gap 21 H BUN 61 H Creatinine 6.1 H Random Glucose 1086 H* Troponin I < 0.02 CMP shows sodium of 123, k 5.1. Gap elevated. Glucose 1086. Trop negative. Sodium corrects to 147. 06/03/17 10:25 Laboratory Tests 06/03/17 10:00 Acetone, Qual Trace H Acetone trace, likely HHS more than DKA. 06/03/17 10:45 Will give 10U IV insulin and start .1U/kg/hr insulin drip. ICU approved by Dr Rojas. Pending signout to medicine team. 06/03/17 19:07 Signed out to medicine team. *DC/Admit/Observation/Transfer Diagnosis at time of Disposition: Hyperglycemia - Discharge Dispostion Condition at time of disposition: Stable Admit: Yes - Referrals - Patient Instructions - Post Discharge Activity
[2017-06-03] MEDS ORDERED: NIFEdipine E.R. 30 MG TABLET (FP) PO ONE (08:23)
[2017-06-03] MEDS ORDERED: NIFEdipine 10 MG CAPSULE (FP) ONE (08:23)
[2017-06-03 08:30] LABS: VENOUS PH 7.2 (7.32-7.42); VENOUS PO2 54.2 mmHg (28-48)
[2017-06-03 08:33] LABS: EOS % 0.6 % (0-4.5); HEMATOCRIT 27.7 % (32.4-45.2); HEMOGLOBIN 8.4 GM/dL (10.7-15.3); MCH 27.2 pg (25.7-33.7); MCHC 30.3 g/dl (32.0-36.0); MEAN PLT VOLUME 9.2 fl (7.5-11.1); MONO % 10.2 % (3.8-10.2); NEUT % 84.2 % (42.8-82.8); PLATELET COUNT 390 K/MM3 (134-434); RBC 3.08 M/mm3 (3.60-5.2); RDW 17.8 % (11.6-15.6); WHITE BLOOD COUNT 5.4 K/mm3 (4.0-10.0)
[2017-06-03 08:55] LABS: INR 1.21 (0.82-1.09); PROTHROMBIN TIME (PATIENT) 13.7 SEC (9.98-11.88)
[2017-06-03 08:58] LABS: ACTIVATED PTT 29.9 SECONDS (26.9-34.4)
[2017-06-03 09:08] LABS: ALBUMIN 3.1 g/dl (3.4-5.0); ANION GAP 21 (8-16); BILIRUBIN,TOTAL 0.8 mg/dL (0.2-1.0); BLOOD UREA NITROGEN 61 mg/dL (7-18); CALCIUM 7.7 mg/dL (8.5-10.1); CHLORIDE 86 mmol/L (98-107); CO2 16 mmol/L (21-32); CREATININE 6.1 mg/dL (0.55-1.02); POTASSIUM 5.1 mmol/L (3.5-5.1); SGOT/AST 34 U/L (15-37); SGPT/ALT 22 U/L (12-78); TOT PROT 8.6 g/dl (6.4-8.2)
[2017-06-03] MEDS ORDERED: NIFEdipine E.R. 30 MG TABLET (FP) PO SCH (10:00)
[2017-06-03 10:07] LABS: ALK PHOS 1290 U/L (45-117)
[2017-06-03 10:08] LABS: GLUCOSE,RANDOM 1086 mg/dL (74-106)
[2017-06-03 10:09] LABS: SODIUM 123 mmol/L (136-145)
[2017-06-03] MEDS ORDERED: INSULIN REGULAR HUMAN 100 UNITS/ML *VIAL IVPUSH ONE (10:25)
[2017-06-03] MEDS ORDERED: INSULIN REGULAR 100 UNITS in SODIUM CHLORIDE 99 ML IVPB SCH (10:30)
[2017-06-03] MEDS ORDERED: INSULIN REGULAR HUMAN 100 UNITS/ML *VIAL ONE (10:37)
--- NOTE | 2017-06-03 11:37 | EKG ---
Test Reason : Blood Pressure : / mmHG Vent. Rate : 084 BPM Atrial Rate : 084 BPM P-R Int : 200 ms QRS Dur : 086 ms QT Int : 402 ms P-R-T Axes : 026 -06 044 degrees QTc Int : 475 ms NORMAL SINUS RHYTHM POSSIBLE LEFT ATRIAL ENLARGEMENT ANTERIOR INFARCT (CITED ON OR BEFORE 04-MAR-2017) ABNORMAL ECG WHEN COMPARED WITH ECG OF 13-MAY-2017 00:37, NONSPECIFIC T WAVE ABNORMALITY NO LONGER EVIDENT IN LATERAL LEADS Confirmed by WESLEY SABILLON MD ([id number]) on 06/03/2017 11:37:06 AM Referred By: Confirmed By:WESLEY SABILLON MD
--- NOTE | 2017-06-03 12:03 | HP ---
CHIEF COMPLAINT: weakness PCP: None HISTORY OF PRESENT ILLNESS: The patient is a 26 year old female with a significant PMH of DM type I, ESRD on dialysis(M-W-F), on home Oxygen(3L), h/o of DVt, recent hospitalization in [facility] ICU for HHS, diabetic ulcer/abscess, discharged 05/17/17. She presented today complaining of generalized weakness that is present for several days. She also noted increased swelling in lower extremities. She missed dialysis on Wednesday and had it on Wednesday. After her recent wound debridement in 04/21/17, she still is getting Vancomycin with dialysis. The pt denies chest pain , palpitations, nausea, diarrhea. She denies fever, chills. She stated that is compliant with medications but later admitted that she is not. Not taking AC due to nosebleeds. She denies sick contacts. ER course was notable for: (1)glu 1086 (2)207/106 (3)Procardia, percocet Recent Travel: PAST MEDICAL HISTORY: anemia, h/o of MRSA, cardiac myxoma removal, myositis, diabetic ulcer PAST SURGICAL HISTORY: cardiac myxoma-[facility] in 2013 fistula upper extremities diabetic ulcer-debridement in 04/2017 Social History: Smoking:denies Alcohol:denies Drugs: denies Family History: Mother; HTN Father: N/A No siblings, children. She lives with her mother, uses walker, oxygen and has transportation for dialysis 3 times a week. Allergies No Known Drug Allergies Allergy (Verified 04/12/17 15:14) HOME MEDICATIONS: Home Medications Medication Instructions Recorded Gabapentin 200 mg PO TID 03/11/16 Sevelamer Carbonate [Renvela -] 1,600 mg PO TIDCM #60 tab 07/14/16 Losartan Potassium [Cozaar -] 100 mg PO DAILY 12/21/16 Labetalol HCl [Normodyne -] 400 mg PO TID #60 tablet 12/26/16 cloNIDine HCL [Catapres -] 0.3 mg PO TID tablet 12/26/16 Nifedipine ER [Procardia XL -] 30 mg PO BID #60 tab.er.24 04/30/17 hydrALAZINE HCL [Apresoline -] 75 mg PO TID #90 tablet 04/30/17 Insulin (Levemir) [Levemir Vial] 16 units SQ BID@0700,2200 ml 05/17/17 Insulin Sliding Scale [Novolog 0 vial SQ ACHS 06/03/17 Vial Sliding Scale -] REVIEW OF SYSTEMS CONSTITUTIONAL: generalized weakness Absent: fever, chills, diaphoresis, malaise, loss of appetite, weight change HEENT: Absent: rhinorrhea, nasal congestion, throat pain, throat swelling, difficulty swallowing CARDIOVASCULAR: Absent: chest pain, syncope, palpitations, irregular heart rate RESPIRATORY: Absent: cough, shortness of breath, dyspnea with exertion, orthopnea, wheezing GASTROINTESTINAL: Absent: abdominal pain, abdominal distension, nausea, vomiting, diarrhea, constipation, GENITOURINARY: Absent: dysuria, frequency, urgency, hesitancy, hematuria, flank pain, genital pain MUSCULOSKELETAL: Absent: myalgia, arthralgia, joint swelling, back pain, neck pain SKIN: Absent: rash, itching, ENDOCRINE: Absent: unexplained weight gain, unexplained weight loss, heat intolerance, cold intolerance NEUROLOGIC: Absent: headache, focal weakness or paresthesias, dizziness, unsteady gait, seizure, PSYCHIATRIC: Absent: anxiety, depression, suicidal or homicidal ideation, hallucinations. PHYSICAL EXAMINATION Vital Signs - 24 hr 06/03/17 06/03/17 06/03/17 06:55 08:02 08:12 Temperature 98.1 F Pulse Rate 87 84 Pulse Rate [ 84 Apical] Respiratory 18 20 Rate Blood Pressure 207/106 Blood Pressure 176/96 [Left Arm] O2 Sat by Pulse 100 100 100 Oximetry (%) 06/03/17 10:42 Temperature Pulse Rate Pulse Rate [ 70 Apical] Respiratory 18 Rate Blood Pressure Blood Pressure 130/80 [Left Arm] O2 Sat by Pulse 99 Oximetry (%) GENERAL: Awake, alert, and fully oriented, in no acute distress, sitting in bed on VT. HEAD: Normal with no signs of trauma. EYES: Pupils equal, round and reactive to light, extraocular movements intact, sclera anicteric, conjunctiva clear. EARS, NOSE, THROAT: oropharynx clear without exudates. Moist mucous membranes. NECK: Normal range of motion, supple without lymphadenopathy, JVD, or masses. LUNGS: Breath sounds equal, clear to auscultation bilaterally. No wheezes, and no crackles. No accessory muscle use. HEART: Regular rate and rhythm, normal S1 and S2 without murmur, rub or gallop. ABDOMEN: Soft, nontender, not distended, normoactive bowel sounds, no guarding, no rebound MUSCULOSKELETAL: Normal range of motion at all joints, UPPER EXTREMITIES: 2+ pulses, warm LOWER EXTREMITIES: 2+ pulses, warm, 2+ edema NEUROLOGICAL: Normal speech, no facial asymmetry. PSYCHIATRIC: Cooperative. Good eye contact. Appropriate mood and affect. SKIN: Warm, dry, normal turgor, no rashes, dressing applied on right foot. Laboratory Results - last 24 hr 06/03/17 06/03/17 06/03/17 07:56 07:56 07:56 WBC 5.4 RBC 3.08 L Hgb 8.4 L Hct 27.7 L MCV 90.0 MCH 27.2 MCHC 30.3 L RDW 17.8 H Plt Count 390 D MPV 9.2 Neutrophils % 84.2 H D Lymphocytes % 4.0 L D Monocytes % 10.2 Eosinophils % 0.6 D Basophils % 1.0 PT with INR 13.70 H INR 1.21 H PTT (Actin FS) 29.9 VBG pH POC VBG pCO2 POC VBG pO2 Mixed VBG HCO3 Sodium 123 L* Potassium 5.1 Chloride 86 L Carbon Dioxide 16 L Anion Gap 21 H BUN 61 H Creatinine 6.1 H Creat Clearance w eGFR 8.25 POC Glucometer Random Glucose 1086 H* Lactic Acid Calcium 7.7 L Total Bilirubin 0.8 AST 34 ALT 22 Alkaline Phosphatase 1290 H Creatine Kinase 126 Troponin I < 0.02 Total Protein 8.6 H Albumin 3.1 L Serum , Qual Acetone, Qual Blood Type Antibody Screen 06/03/17 06/03/17 06/03/17 07:56 07:56 07:56 WBC RBC Hgb Hct MCV MCH MCHC RDW Plt Count MPV Neutrophils % Lymphocytes % Monocytes % Eosinophils % Basophils % PT with INR INR PTT (Actin FS) VBG pH 7.20 L* POC VBG pCO2 44.0 POC VBG pO2 54.2 H D Mixed VBG HCO3 16.5 L Sodium Potassium Chloride Carbon Dioxide Anion Gap BUN Creatinine Creat Clearance w eGFR POC Glucometer Random Glucose Lactic Acid Calcium Total Bilirubin AST ALT Alkaline Phosphatase Creatine Kinase Troponin I Total Protein Albumin Serum , Qual Negative Acetone, Qual Blood Type B POSITIVE Antibody Screen Negative 06/03/17 06/03/17 06/03/17 08:02 10:00 11:00 WBC RBC Hgb Hct MCV MCH MCHC RDW Plt Count MPV Neutrophils % Lymphocytes % Monocytes % Eosinophils % Basophils % PT with INR INR PTT (Actin FS) VBG pH POC VBG pCO2 POC VBG pO2 Mixed VBG HCO3 Sodium Potassium Chloride Carbon Dioxide Anion Gap BUN Creatinine Creat Clearance w eGFR POC Glucometer [phone] Random Glucose Lactic Acid 1.2 Calcium Total Bilirubin AST ALT Alkaline Phosphatase Creatine Kinase Troponin I Total Protein Albumin Serum , Qual Acetone, Qual Trace H Blood Type Antibody Screen ASSESSMENT/PLAN: The pt is a 26 y/o F with PMH ESRD (HD MWF, last time on Wednesday, IDDM, HTN, recent hospitalization for diabetic wound/abscess who presented to ED with elevated glucose to 1086, diagnosed with DKA and admitted to ICU. DKA: -anion gap 21, elevated glu, VBG-Ph 7.2, possibly due to non compliance than to acute events, infection -blood glucose 1086, came down to 345 -Insulin bolus followed by ggt -BGM q1hr, BMP q4H, next one at 3 PM -LA normal -Cx-waiting for official report, no acute changes -Endocrine consulted-Dr Cassidy -bcx and wound cultures ordered in ED ESRD -last HD on Wednesday -neprho consulted-Dr Vo -will hold on fluids for now Hypertensive urgency: 207/106 that went down to 130/80 after administration of Procardia in ED -will resume Labetalol for now -monitor closely Hx DVT -not on Eliquis -cont Oxygen b/l LE edema -duplex was negative FEN -no fluid/no changes/diabetic diet PPx -SCDs -Heparin SQ BID Dispo ICU Discussed with Dr Doreen Sierra and Dr Rojas Problem List - Problem (1) Hyperglycemia Code(s): R73.9 - HYPERGLYCEMIA, UNSPECIFIED (2) Anemia Code(s): D64.9 - ANEMIA, UNSPECIFIED Qualifiers: Folate deficiency anemia type: dietary (3) DKA, type 1 Code(s): E10.10 - TYPE 1 DIABETES MELLITUS WITH KETOACIDOSIS WITHOUT COMA (4) Diabetes mellitus, insulin dependent (IDDM), uncontrolled Code(s): E10.65 - TYPE 1 DIABETES MELLITUS WITH HYPERGLYCEMIA (5) Diabetic foot ulcer Code(s): E11.621 - TYPE 2 DIABETES MELLITUS WITH FOOT ULCER; L97.509 - NON- PRESSURE CHRONIC ULCER OTH PRT UNSP FOOT W UNSP SEVERITY Qualifiers: Diabetes mellitus type: type 1 Laterality: right (6) End stage chronic kidney disease Code(s): N18.6 - END STAGE RENAL DISEASE; Z99.2 - DEPENDENCE ON RENAL DIALYSIS (7) Hypertensive urgency Code(s): I16.0 - HYPERTENSIVE URGENCY (8) Myositis Code(s): M60.9 - MYOSITIS, UNSPECIFIED (9) Weakness Code(s): R53.1 - WEAKNESS (10) ESRD (end stage renal disease) on dialysis Code(s): N18.6 - END STAGE RENAL DISEASE; Z99.2 - DEPENDENCE ON RENAL DIALYSIS Visit type - Emergency Visit Emergency Visit: Yes ED Registration Date: 06/03/17 Care time: The patient presented to the Emergency Department on the above date and was hospitalized for further evaluation of their emergent condition. - New Patient This patient is new to me today: Yes Date on this admission: 06/03/17 - Critical Care Critical Care patient: Yes Total Critical Care Time (in minutes): 35 Critical Care Statement: The care of this patient involved high complexity decision making to prevent further life threatening deterioration of the patient 's condition and/or to evaluate & treat vital organ system(s) failure or risk of failure. Hospitalist Screening - Colonoscopy Questionnaire Colonoscopy Questionnaire: Colonoscopy Questionnaire - Patient: 50 - 75 years old and never had a screening colonoscopy: Yes History of colon or rectal polyps, or CA: No History of IBD, Crohn's disease or UC: No History of abdominal radiation therapy as a child: No - Relative: 1 with colon or rectal CA, or polyps at age 60 or younger: No Colon or rectal CA diagnosed at age 45 or younger: No Multiple relatives with colon or rectal CA: No - Outcome: Screening Result: Positive Screen
[2017-06-03 12:14] LABS: ARTERIAL BLD GAS O2 SATURATION 96.3 % (90-98.9); ARTERIAL BLOOD GAS BASE EXCESS -12.3 meq/l (-2-2); ARTERIAL BLOOD GAS PCO2 39.4 mmHg (35-45); ARTERIAL BLOOD GAS pH 7.19 (7.35-7.45)
[2017-06-03 12:17] LABS: ALLENS TEST POSITIVE
[2017-06-03 13:05] LABS: ANION GAP 19 (8-16); BILIRUBIN,TOTAL 0.7 mg/dL (0.2-1.0); BLOOD UREA NITROGEN 65 mg/dL (7-18); CHLORIDE 89 mmol/L (98-107); CO2 15 mmol/L (21-32); CREATININE 6.4 mg/dL (0.55-1.02); POTASSIUM 4.5 mmol/L (3.5-5.1); SGOT/AST 22 U/L (15-37); SGPT/ALT 20 U/L (12-78); TOT PROT 7.9 g/dl (6.4-8.2)
[2017-06-03] MEDS ORDERED: HEPARIN NA (PORCINE) 5,000 UNITS/ML 1ML VIAL SQ SCH (13:30)
[2017-06-03 13:34] LABS: ALK PHOS 1277 U/L (45-117)
[2017-06-03 13:35] LABS: SODIUM 123 mmol/L (136-145)
[2017-06-03 13:36] LABS: GLUCOSE,RANDOM 1133 mg/dL (74-106)
[2017-06-03 14:00] LABS: MAGNESIUM 2.3 mg/dL (1.8-2.4); PHOSPHOROUS 7.7 mg/dL (2.5-4.9)
--- NOTE | 2017-06-03 14:02 | CONSULT ---
Consult - text type - Consultation Consultation Note: Renal Consult for ESRD on HD This is a 26 year old woman with PMhx of ESRD on HD (MWF), Hypertension, IDDM, Hx of Osteomylitis who presented with Weakness and found to have DKA. Pt last had dialysis on Wednesday. Missed yesterday session. No CP, SOb, Abd pain, N/V/D. PMhx: As above Allergies: NKDA Family hx: NC Social Hx: No T/A/D ROS: as per HPI Home Medications Medication Instructions Recorded Gabapentin 200 mg PO TID 03/11/16 Sevelamer Carbonate [Renvela -] 1,600 mg PO TIDCM #60 tab 07/14/16 Losartan Potassium [Cozaar -] 100 mg PO DAILY 12/21/16 Labetalol HCl [Normodyne -] 400 mg PO TID #60 tablet 12/26/16 cloNIDine HCL [Catapres -] 0.3 mg PO TID tablet 12/26/16 Nifedipine ER [Procardia XL -] 30 mg PO BID #60 tab.er.24 04/30/17 hydrALAZINE HCL [Apresoline -] 75 mg PO TID #90 tablet 04/30/17 Insulin (Levemir) [Levemir Vial] 16 units SQ BID@0700,2200 ml 05/17/17 Insulin Sliding Scale [Novolog 0 vial SQ ACHS 06/03/17 Vial Sliding Scale -] Vital Signs Temperature 98.1 F 06/03/17 06:55 Pulse Rate 84 06/03/17 12:05 Respiratory Rate 20 06/03/17 12:05 Blood Pressure 166/85 06/03/17 12:05 O2 Sat by Pulse Oximetry (%) 97 06/03/17 12:05 Intake & Output 05/31/17 06/01/17 06/02/17 06/03/17 23:59 23:59 23:59 23:59 Weight 65.771 kg NAD, awake and alert RRR CTA No Abd tenderness, soft 2+ LE edema left arm fistula CBC, BMP 06/03/17 07:56 06/03/17 12:18 Current Medications Chlorhexidine Gluconate (Hibiclens For Decolonization -) 1 applic TP HS ROSA MARIA Epoetin Abiel (Epogen -) 20,000 unit IVPUSH ONCE ONE Stop: 06/03/17 14:01 Heparin Sodium (Porcine) (Heparin -) 5,000 unit SQ BID ROSA MARIA Insulin Human Regular 100 (units/ Sodium Chloride) 100 mls @ 6.57 mls/hr IVPB TITR ROSA MARIA; 0.1 UNITS/KG/HR PRN Reason: Protocol Last Admin: 06/03/17 12:26 Dose: 0.1 units/kg/hr, 6.57 mls/hr Labetalol HCl (Normodyne -) 400 mg PO TID ROSA MARIA Mupirocin (Bactroban Ointment (For Decolonization) -) 1 applic NS BID ROSA MARIA Stop: 06/08/17 21:59 26 year old woman with PMhx of ESRD on HD (MWF), Hypertension, IDDM, Hx of Osteomylitis who presented with Weakness and found to have DKA. #ESRD on HD with volume overload Hd today with UF as tolerated will plan for additional UF tomorrow Fluid restirction Renal diet #DKA continue Insulin gtt no fluids bc pt is volume overloaded #Hypertension Continue Labetalol start nifedpine, Hydrlazine #CKD related Anemia continue MACIE with HD Thank you Nathan Vo DO
--- NOTE | 2017-06-03 14:15 | PN ---
Teaching Attending Note Name of Resident: Kaylynn Nieto ATTENDING PHYSICIAN STATEMENT I saw and evaluated the patient. I reviewed the resident's note and discussed the case with the resident. I agree with the resident's findings and plan as documented. SUBJECTIVE: Pt seen and examined in the ICU. Briefly, 26yo female with h/o HTN, poorly controlled DM, ESRD on HD, h/o DVT, noncompliance who presents with high sugars on glucometer. Reports stressors at home that cause her to be noncompliant with her glucose intake. Reports compliance with her insulin. No fevers or chills. No nausea, vomiting but with some diarrhea. She did miss one HD session. Reports compliance with wound clinic and her chronic foot wound was reportedly clean. OBJECTIVE: Last Vital Signs Temp Pulse Resp BP Pulse Ox 98.1 F 84 20 166/85 97 06/03/17 06:55 06/03/17 12:05 06/03/17 12:05 06/03/17 12:05 06/03/17 12:05 Intake & Output 05/31/17 06/01/17 06/02/17 06/03/17 23:59 23:59 23:59 23:59 Weight 65.771 kg Gen: NAD at rest Heart: RRR Lung: decreased breath sounds at the bases Abd: soft, nontender Ext: + edema CBC, BMP 06/03/17 07:56 06/03/17 12:18 Abnormal Lab Results 06/03/17 06/03/17 06/03/17 07:56 07:56 07:56 RBC 3.08 L Hgb 8.4 L Hct 27.7 L MCHC 30.3 L RDW 17.8 H Neutrophils % 84.2 H D Lymphocytes % 4.0 L D PT with INR 13.70 H INR 1.21 H ABG pH ABG pO2 at Pt Temp ABG HCO3 ABG O2 Content ABG Base Excess VBG pH POC VBG pO2 Mixed VBG HCO3 Sodium 123 L* Chloride 86 L Carbon Dioxide 16 L Anion Gap 21 H BUN 61 H Creatinine 6.1 H Random Glucose 1086 H* Calcium 7.7 L Phosphorus Alkaline Phosphatase 1290 H Total Protein 8.6 H Albumin 3.1 L Acetone, Qual 06/03/17 06/03/17 06/03/17 07:56 10:00 11:40 RBC Hgb Hct MCHC RDW Neutrophils % Lymphocytes % PT with INR INR ABG pH ABG pO2 at Pt Temp ABG HCO3 ABG O2 Content ABG Base Excess VBG pH 7.20 L* POC VBG pO2 54.2 H D Mixed VBG HCO3 16.5 L Sodium 123 L* Chloride 89 L Carbon Dioxide 15 L Anion Gap 19 H BUN 65 H Creatinine 6.4 H Random Glucose 1133 H* Calcium 7.0 L Phosphorus 7.7 H Alkaline Phosphatase 1277 H Total Protein Albumin 3.0 L Acetone, Qual Trace H 06/03/17 11:44 RBC Hgb Hct MCHC RDW Neutrophils % Lymphocytes % PT with INR INR ABG pH 7.19 L* ABG pO2 at Pt Temp 102.0 H ABG HCO3 14.5 L* ABG O2 Content 10.5 L ABG Base Excess -12.3 L* VBG pH POC VBG pO2 Mixed VBG HCO3 Sodium Chloride Carbon Dioxide Anion Gap BUN Creatinine Random Glucose Calcium Phosphorus Alkaline Phosphatase Total Protein Albumin Acetone, Qual CXR: increased pulmonary vascular congestion Active Medications Chlorhexidine Gluconate (Hibiclens For Decolonization -) 1 applic TP HS ROSA MARIA Epoetin Abiel (Procrit -) 20,000 unit IVPUSH ONCE ONE Stop: 06/03/17 15:01 Heparin Sodium (Porcine) (Heparin -) 5,000 unit SQ BID ROSA MARIA Insulin Human Regular 100 (units/ Sodium Chloride) 100 mls @ 6.57 mls/hr IVPB TITR ROSA MARIA; 0.1 UNITS/KG/HR PRN Reason: Protocol Last Admin: 06/03/17 12:26 Dose: 0.1 units/kg/hr, 6.57 mls/hr Labetalol HCl (Normodyne -) 400 mg PO TID ROSA MARIA Mupirocin (Bactroban Ointment (For Decolonization) -) 1 applic NS BID ROSA MARIA Stop: 06/08/17 21:59 ASSESSMENT AND PLAN: Diabetic Ketoacidosis/Hyperosmolar Hyperglycemic Overlap ESRD on HD HTN h/o DVT Noncompliance - insulin gtt 0.1units/kg/hr until anion gap closed - unable to fluid resuscitate as she is already clinically volume overloaded and does not make urine - BGM q1h, BMP q4h while on insulin gtt - if BGM <250 or K <4.5 while anion gap open, decrease insulin gtt rate - HD per renal with ultrafiltration - O2 to keep SpO2 >90% - DVT prophylaxis - ICU monitoring while on insulin gtt
--- NOTE | 2017-06-03 14:25 | PN ---
Teaching Attending Note Name of Resident: Chanell Weiss ATTENDING PHYSICIAN STATEMENT I saw and evaluated the patient. I reviewed the resident's note and discussed the case with the resident. I agree with the resident's findings and plan as documented. SUBJECTIVE: 26 yrs old F multiple medical co-morbidities, non complaint with meds and Diet, multiple hospitalization in the past H?O Type1 DM diagnosed at the age of 11 yrs, CKD stage 5 on HD Started at the age of 20, HTN, Mypsitis, Atrial Myxoma s/p surgery, chronic anemia of CKD, On Home O2 for PHTN H/O PE not on AC as her nose bleeds with Eliquis, patient is in the process of switching her diaalysis schedule from Wed, and Wednesday to Wed, Wed and Wednesday missed HD on , present with worsening weakens, tiredness and SOB, patient also admits that she missed her meds for few days, in the ED Hypertensive lab show RPG > 1000 with AG and VBG shows PH of 7.20 with low Bicarb 16 and AG 20 consistent with DKA patient denies any fever, cough, abdominal pain, nausea, vomiting or diarrhea, received insulin R 5 units nopw on Insulin infusion admitted on the floor for further management OBJECTIVE: Vital Signs Period Temp Pulse Resp BP Sys/Ames Pulse Ox Last 24 Hr 98.1 F 70-87 18-20 130-207/80-106 97-100 P EXam Young F sick looking, not in distress c/o hip pain asking for morphine HEENT: Mm moist anemia, PERRLA EOMI NECK: JVD+, No Bruit CHEST: Minimal Crepts CVS: S1S2 R no m/g/r ABD: No distention , non tender Bs + EXT: B/L LE edema ++, Rt LE foot in fDressing DELPHI DEVELOPER: AOX3 Non Focal LABS: CBC,CMP WBC 5.4 K/mm3 (4.0-10.0) 06/03/17 07:56 RBC 3.08 M/mm3 (3.60-5.2) L 06/03/17 07:56 Hgb 8.4 GM/dL (10.7-15.3) L 06/03/17 07:56 Hct 27.7 % (32.4-45.2) L 06/03/17 07:56 MCV 90.0 fl (80-96) 06/03/17 07:56 MCH 27.2 pg (25.7-33.7) 06/03/17 07:56 MCHC 30.3 g/dl (32.0-36.0) L 06/03/17 07:56 RDW 17.8 % (11.6-15.6) H 06/03/17 07:56 Plt Count 390 K/MM3 (134-434) D 06/03/17 07:56 MPV 9.2 fl (7.5-11.1) 06/03/17 07:56 Neutrophils % 84.2 % (42.8-82.8) H D 06/03/17 07:56 Lymphocytes % 4.0 % (8-40) L D 06/03/17 07:56 Monocytes % 10.2 % (3.8-10.2) 06/03/17 07:56 Eosinophils % 0.6 % (0-4.5) D 06/03/17 07:56 Basophils % 1.0 % (0-2.0) 06/03/17 07:56 Sodium 123 mmol/L (136-145) L* 06/03/17 11:40 Potassium 4.5 mmol/L (3.5-5.1) 06/03/17 11:40 Chloride 89 mmol/L (98-107) L 06/03/17 11:40 Carbon Dioxide 15 mmol/L (21-32) L 06/03/17 11:40 Anion Gap 19 (8-16) H 06/03/17 11:40 BUN 65 mg/dL (7-18) H 06/03/17 11:40 Creatinine 6.4 mg/dL (0.55-1.02) H 06/03/17 11:40 Creat Clearance w eGFR 7.81 (>60) 06/03/17 11:40 POC Glucometer > 400 UNITS (80-120) 06/03/17 13:21 Random Glucose 1133 mg/dL (74-106) H* 06/03/17 11:40 Lactic Acid 1.2 mmol/L (0.0-2.0) 06/03/17 08:02 Calcium 7.0 mg/dL (8.5-10.1) L 06/03/17 11:40 Phosphorus Cancelled 06/03/17 12:18 Magnesium Cancelled 06/03/17 12:18 Total Bilirubin 0.7 mg/dL (0.2-1.0) 06/03/17 11:40 AST 22 U/L (15-37) 06/03/17 11:40 ALT 20 U/L (12-78) 06/03/17 11:40 Alkaline Phosphatase 1277 U/L (45-117) H 06/03/17 11:40 Creatine Kinase 113 IU/L (26-192) 06/03/17 11:40 Troponin I < 0.02 ng/ml (0.00-0.05) 06/03/17 11:40 Total Protein 7.9 g/dl (6.4-8.2) 06/03/17 11:40 Albumin 3.0 g/dl (3.4-5.0) L 06/03/17 11:40 Serum , Qual Negative 06/03/17 07:56 ABG Results ABG pH 7.19 (7.35-7.45) L* 06/03/17 11:44 ABG pCO2 at Pt Temp 39.4 mmHg (35-45) 06/03/17 11:44 ABG pO2 at Pt Temp 102.0 mmHg (80-100) H 06/03/17 11:44 ABG HCO3 14.5 meq/L (22-26) L* 06/03/17 11:44 ABG O2 Sat (Measured) 96.3 % (90-98.9) 06/03/17 11:44 ABG O2 Content 10.5 % vol (15-22) L 06/03/17 11:44 ABG Base Excess -12.3 meq/l (-2-2) L* 06/03/17 11:44 CXR: Cardiomegaly No acute Infiltrates LE Doppler: No DVT Rt Calf Focal Mtositis ASSESSMENT AND PLAN:26 yrs old F multiple medical co-morbidities, non complaint with meds and Diet, multiple hospitalization in the past H?O Type1 DM diagnosed at the age of 11 yrs, CKD stage 5 on HD Started at the age of 20, HTN, Mypsitis, Atrial Myxoma s/p surgery, chronic anemia of CKD, On Home O2 for PHTN H/O PE not on AC present with DKA due to non compliance with insulin no clinical sign or lab evidence of infection. Impression; DKA: 1. Due to non complaince no clinical sign of infection, anuric ESRD on HD, cont Insulin infusion protocol, BMP, Phosphate Mag q 6 hrly, Diabetic Diet, fluid management as per Nephrology. 2. Uncontrolled HTN due to non compliance at present BP well controlled Put back on Labetalol and introduce other medication as per response; 3. CKD stgae 5 on HD: Renal consult F/U renal recommendation 4. Elevated Alk Phosphate; chronic most likely netabolic bone disease non compline with phosphate binder F/U Phosphate level and PTH 5. Chronic recurrent VTE: not on AC LE Doppler -ve , evaluate patient for Coumadin for Ac if she agrees 6. Chronic anemia: H/H stable 7. Mypsitis : F/U CK 8. Atrial Myxoma s/p surgery no active Issue 9. Rt LE ulcer: wound care DVT Prophylaxis: SQ Heparin Disposition; Need assessment of social , emotional issues for non compliance and support system at Home Problem List - Problems (1) DKA (diabetic ketoacidosis) Code(s): E13.10 - OTH DIABETES MELLITUS WITH KETOACIDOSIS WITHOUT COMA Qualifiers: Diabetes mellitus type: type 1 (2) History of pulmonary embolus (PE) Code(s): Z86.711 - PERSONAL HISTORY OF PULMONARY EMBOLISM (3) Hyponatremia Code(s): E87.1 - HYPO-OSMOLALITY AND HYPONATREMIA (4) End stage chronic kidney disease Code(s): N18.6 - END STAGE RENAL DISEASE; Z99.2 - DEPENDENCE ON RENAL DIALYSIS (5) Diabetic foot ulcer Code(s): E11.621 - TYPE 2 DIABETES MELLITUS WITH FOOT ULCER; L97.509 - NON- PRESSURE CHRONIC ULCER OTH PRT UNSP FOOT W UNSP SEVERITY
--- NOTE | 2017-06-03 14:42 | CONSULT ---
Consultation: CONSULT REQUEST: ICU HISTORY OF PRESENT ILLNESS: Pt is a 26 y/o F with ESRD (MWF), Type 1 Diabetes, and HTN who presented to the ER after feeling generalzied weakness and malaise. In the ER she was found to have hyperglycemia +1,000. She has been admitted for multiple DKA/HHS episodes in the past. Currently on levemir and humalog ssi regimen. Attributes this episode to not taking insulin yesterday due to low AM glucose. Also endorses family stressors. Denies prior illness, cough, CP, SOB, abd pain, vision changes. Patient missed her Wednesday dialysis session, last session was wednesday. In the ER she was found to be in hypertensive urgency with BP at 207/106, improved with Procardia. Labs were consistent with HHS. She was started on Insulin drip 0.1/u/kg. Fluids were held because patient is anuric. Gap decreasing. REVIEW OF SYSTEMS: CONSTITUTIONAL: Absent: fever, chills, diaphoresis, generalized weakness, malaise, loss of appetite, weight change Positive: generalized weakness, malaise HEENT: Absent: rhinorrhea, nasal congestion, throat pain, throat swelling, difficulty swallowing, mouth swelling, ear pain, eye pain, visual changes CARDIOVASCULAR: Absent: chest pain, syncope, palpitations, irregular heart rate, lightheadedness , peripheral edema RESPIRATORY: Absent: cough, shortness of breath, dyspnea with exertion, orthopnea, wheezing, stridor, hemoptysis GASTROINTESTINAL: Absent: abdominal pain, abdominal distension, nausea, vomiting, diarrhea, constipation, melena, hematochezia GENITOURINARY: Absent: dysuria, frequency, urgency, hesitancy, hematuria, flank pain, genital pain MUSCULOSKELETAL: Absent: myalgia, arthralgia, joint swelling, back pain, neck pain SKIN: Absent: rash, itching, pallor HEMATOLOGIC/IMMUNOLOGIC: Absent: easy bleeding, easy bruising, lymphadenopathy, frequent infections ENDOCRINE: Absent: unexplained weight gain, unexplained weight loss, heat intolerance, cold intolerance NEUROLOGIC: Absent: headache, focal weakness or paresthesias, dizziness, unsteady gait, seizure, mental status changes, bladder or bowel incontinence PSYCHIATRIC: Absent: anxiety, depression, suicidal or homicidal ideation, hallucinations. PHYSICAL EXAMINATION Vital Signs Period Temp Pulse Resp BP Sys/Ames Pulse Ox Last 24 Hr 98.1 F 70-87 18-20 130-207/80-106 97-100 GEN: AAOx3, Sad affect, talking with examiner HEENT: PERRLA, EOMi CV: S1, S2, RRR LUNG: CTABL ABD: Soft, NT, ND MSK: +2 pitting edema bilaterally Laboratory Tests 06/03/17 06/03/17 07:56 11:40 Anion Gap 21 H 19 H ABG Results ABG pH 7.19 (7.35-7.45) L* 06/03/17 11:44 ABG pCO2 at Pt Temp 39.4 mmHg (35-45) 06/03/17 11:44 ABG pO2 at Pt Temp 102.0 mmHg (80-100) H 06/03/17 11:44 ABG HCO3 14.5 meq/L (22-26) L* 06/03/17 11:44 ABG O2 Sat (Measured) 96.3 % (90-98.9) 06/03/17 11:44 ABG O2 Content 10.5 % vol (15-22) L 06/03/17 11:44 ABG Base Excess -12.3 meq/l (-2-2) L* 06/03/17 11:44 Active Medications Generic Name Dose Route Start Last Admin Trade Name Freq PRN Reason Stop Dose Admin Chlorhexidine Gluconate 1 applic 06/03/17 22:00 Hibiclens For Decolonization - TP HS ROSA MARIA Epoetin Abiel 20,000 unit 06/03/17 14:00 Epogen - IVPUSH 06/03/17 14:01 ONCE ONE Heparin Sodium (Porcine) 5,000 unit 06/03/17 13:30 Heparin - SQ BID [facility] Insulin Human Regular 100 100 mls @ 6.57 mls/hr 06/03/17 10:30 06/03/17 12:26 units/ Sodium Chloride IVPB 0.1 units/kg/hr TITR ROSA MARIA 6.57 mls/hr Protocol Administration 0.1 UNITS/KG/HR Labetalol HCl 400 mg 06/03/17 21:00 Normodyne - PO TID ROSA MARIA Mupirocin 1 applic 06/03/17 22:00 Bactroban Ointment (For Decolonization) - NS 06/08/17 21:59 BID [facility] ASSESSMENT/PLAN: 26yo F with Type 1DM and HTN history of medication noncompliance, who presented with malaise, found to be in HHS Endo: * # HHS: Likely from medication noncompliance. On insulin drip. BMP Q4. Gap closing. Hold off on fluids since pt is anuric. When gap closes and patient willing to eat, will switch to SQ. Watch potassium. Renal: * # ESRD: From diabetic nephropathy. Last dialysis session Wednesday (normally MWF ). Dr Vo on board. Will have dialysis today. Continue home meds. CV: * # HTN Urgency: Likely secondary to noncompliance. Improved with Procardia. Currently on dialysis, will restart home meds after dialysis. Pulm * # Hx of DVT/PE: Pt has been on multiple anticoagulants in the past, has been on Eliquis BID. When her dose was increased from 2.5 to 5 bid, she self- discontinued taking eliquis due to frequent nose bleeds. After much discussion, patient not willing to try injections. Will be willing to take 2.5bid, though 5.0bid is the renal dose for HD patients >60kg. Patient was informed that this is a subsdequate dose and there is a risk of the clot worsening or development of new clot. She understands the risks. Gen * # Chronic Pain: Called pharmacy, patient is on Vicodin Q6PRN for chronic pain , will continue FEN/PPX: No ivf, NPO for now, Eliquis 2.5bid, isolation for MRSA in past. Dispo: Keep in ICU for now Kaylynn Nieto MD PGY1 ICU Visit type - Emergency Visit Emergency Visit: No - New Patient This patient is new to me today: No - Critical Care Critical Care patient: Yes Total Critical Care Time (in minutes): 45 Critical Care Statement: The care of this patient involved high complexity decision making to prevent further life threatening deterioration of the patient 's condition and/or to evaluate & treat vital organ system(s) failure or risk of failure.
[2017-06-03 14:50] VITALS: BMI 26.6
[2017-06-03] MEDS ORDERED: EPOETIN ALFA 20,000 UNIT/1 ML VIAL IVPUSH ONE (15:00)
[2017-06-03 15:44] LABS: ANION GAP 20 (8-16); BLOOD UREA NITROGEN 65 mg/dL (7-18); CALCIUM 7.8 mg/dL (8.5-10.1); CHLORIDE 90 mmol/L (98-107); CO2 16 mmol/L (21-32); CREATININE 6.5 mg/dL (0.55-1.02); POTASSIUM 4.2 mmol/L (3.5-5.1); SODIUM 126 mmol/L (136-145)
[2017-06-03] MEDS: ACETAMINOPHEN 325 MG TABLET (FP) PO PRN (15:48)
[2017-06-03] MEDS: oxyCODONE HCL 5 MG TABLET PO PRN (15:49)
[2017-06-03 15:53] LABS: GLUCOSE,RANDOM 854 mg/dL (74-106)
[2017-06-03] MEDS ORDERED: MORPHINE SULFATE 10 MG/1 ML *VIAL IVPUSH ONE (19:45)
[2017-06-03] MEDS: LABETALOL HCL 200 MG TABLET (FP) PO SCH ×2 (20:55→21:45)
[2017-06-03] MEDS: APIXABAN 2.5 MG TABLET PO SCH (21:45)
[2017-06-03] MEDS: cloNIDine HCL 0.1 MG TABLET PO SCH (21:45)
[2017-06-03] MEDS: CHLORHEXIDINE GLUCONATE 4% CLEANSER FOR DECOLONIZATION TP SCH (21:46)
[2017-06-03] MEDS: MUPIROCIN 2% TOPICAL OINTMENT FOR DECOLONIZATION NS SCH (21:46)
[2017-06-03 22:02] LABS: ANION GAP 12 (8-16); BLOOD UREA NITROGEN 30 mg/dL (7-18); CHLORIDE 97 mmol/L (98-107); CO2 26 mmol/L (21-32); CREATININE 3.7 mg/dL (0.55-1.02); GLUCOSE,RANDOM 100 mg/dL (74-106); POTASSIUM 3.2 mmol/L (3.5-5.1); SODIUM 135 mmol/L (136-145)
[2017-06-03] MEDS ORDERED: POTASSIUM CHLORIDE TABS 20 MEQ TABLET.ER (FP) PO ONE (22:05)
[2017-06-03] MEDS ORDERED: INSULIN DETEMIR 100 UNITS/ML MDV SQ SCH (22:15)
[2017-06-03] MEDS: INSULIN DETEMIR 100 UNITS/ML MDV SQ SCH (22:32)
[2017-06-03] MEDS: INSULIN SLIDING SCALE (NOVOLOG) 1 VIAL SQ SCH (22:32)
[2017-06-04] MEDS ORDERED: MAG HYDROX/AL HYDROX/SIMETH 30 ML UNIT-DOSE CUP PO ONE (00:15)
[2017-06-04] MEDS: ACETAMINOPHEN 325 MG TABLET (FP) PO PRN ×3 (01:43→23:15)
[2017-06-04] MEDS: oxyCODONE HCL 5 MG TABLET PO PRN ×3 (01:43→23:16)
[2017-06-04] MEDS: INSULIN SLIDING SCALE (NOVOLOG) 1 VIAL SQ SCH ×6 (01:53→21:57)
[2017-06-04] MEDS ORDERED: hydrALAZINE HCL 20 MG/ML VIAL ONE (05:26)
[2017-06-04] MEDS ORDERED: hydrALAZINE HCL 20 MG/ML VIAL IVPUSH ONE (05:36)
[2017-06-04] MEDS: cloNIDine HCL 0.1 MG TABLET PO SCH ×3 (05:57→21:57)
[2017-06-04 06:18] LABS: BASO % 1.6 % (0-2.0); EOS % 3.5 % (0-4.5); HEMATOCRIT 25.1 % (32.4-45.2); HEMOGLOBIN 8.1 GM/dL (10.7-15.3); LYMPH % 16.6 % (8-40); MCH 27.1 pg (25.7-33.7); MCHC 32.3 g/dl (32.0-36.0); MEAN CELL VOLUME 83.9 fl (80-96); MEAN PLT VOLUME 8.6 fl (7.5-11.1); MONO % 16.3 % (3.8-10.2); PLATELET COUNT 375 K/MM3 (134-434); WHITE BLOOD COUNT 6.3 K/mm3 (4.0-10.0)
[2017-06-04] MEDS: LABETALOL HCL 200 MG TABLET (FP) PO SCH ×3 (06:32→21:56)
[2017-06-04 06:33] LABS: ANION GAP 9 (8-16); BLOOD UREA NITROGEN 33 mg/dL (7-18); CALCIUM 8.1 mg/dL (8.5-10.1); CHLORIDE 99 mmol/L (98-107); CO2 28 mmol/L (21-32); SODIUM 136 mmol/L (136-145)
[2017-06-04 06:35] LABS: CREATININE 4.2 mg/dL (0.55-1.02); PHOSPHOROUS 5.2 mg/dL (2.5-4.9)
[2017-06-04 06:38] LABS: GLUCOSE,RANDOM 47 mg/dL (74-106)
[2017-06-04] MEDS: INSULIN DETEMIR 100 UNITS/ML MDV SQ SCH ×2 (07:52→10:46)
--- NOTE | 2017-06-04 08:39 | PN ---
Progress Note, Physician History of Present Illness: Last Night: Anion gap closed. Insulin ggt d/c'd, now just on Levemir and SSI. BGMs have been 80s. No other acute events Today: Pt still feels tired, but is happy to eat. Mild belly ache. No other complaints. - Objective Vital Signs: Vital Signs Period Temp Pulse Resp BP Sys/Ames Pulse Ox Last 24 Hr 97.5 F-98.4 F 70-87 18-20 130-190/80-113 97-99 Additional Findings/Remarks: GEN: AAOx3, NAD, Flat affect HEENT: PERRLA, EOMi CV: S1, S2, RRR LUNG: CTABL ABD: Soft, NT, ND MSK: 2+ pitting edema Assessment/Plan 26yo F with Type 1DM and HTN history of medication noncompliance, who presented with malaise, found to be in HHS Endo: * # DKA/HHS: From noncompliance. Gap now closed. Insulin drip discontinued. On Levemir [address] Cassidy on the case. Hold off on fluids since pt is anuric. Diabetic diet Renal: * # ESRD: From diabetic nephropathy. Had dialysis yesterday. Another session today to keep with her MWF. Dr Vo on board. Continue home meds. CV: * # HTN Urgency: Likely secondary to noncompliance. Restart home meds. Pulm * # Hx of DVT/PE: Currently on a subadequate dose of ELiquis 2.5bid. Patient refuses to take the correct dose of 5.0bid due to frequent nose bleeds. Patient understands risks. FEN/PPX: No ivf, Diabetic diet, Eliquis 2.5bid, isolation for MRSA in past. Dispo: Discussed w/ primary team, will likely dc today post dialysis Kaylynn Nieto MD PGY1 ICU
[2017-06-04] MEDS: MUPIROCIN 2% TOPICAL OINTMENT FOR DECOLONIZATION NS SCH ×2 (09:39→21:57)
[2017-06-04] MEDS: APIXABAN 2.5 MG TABLET PO SCH ×2 (09:39→21:57)
[2017-06-04] MEDS ORDERED: LOSARTAN POTASSIUM 25 MG TABLET PO SCH (10:00)
[2017-06-04] MEDS ORDERED: NIFEdipine E.R. 30 MG TABLET (FP) PO SCH (10:00)
[2017-06-04] MEDS ORDERED: PANTOPRAZOLE 40 MG TABLET (FP) PO SCH (10:00)
--- NOTE | 2017-06-04 10:13 | PN ---
Physical Exam: SUBJECTIVE: Patient seen and examined by me at bedside. Patient reports feeling much better today but complains of fatigue. Anion gap closed and Insulin drip stopped and patient is currently on levemir. Patient otherwise denies shortness of breath, fever, chills, nausea, vomiting, abdominal pain. OBJECTIVE: Vital Signs Period Temp Pulse Resp BP Sys/Ames Pulse Ox Last 24 Hr 97.5 F-98.4 F 70-87 18-20 130-190/80-113 97-99 GENERAL: The patient is awake, alert, and fully oriented, in no acute distress. EYES: Sclera anicteric, conjunctiva clear. No ptosis. ENT: moist mucous membranes. LUNGS: Breath sounds equal, clear to auscultation bilaterally, no wheezes, no crackles, no accessory muscle use. HEART: Regular rate and rhythm, S1, S2 without murmur, rub or gallop. ABDOMEN: Soft, nontender, nondistended, normoactive bowel sounds EXTREMITIES: 2+ pitting edema bilaterally Laboratory Results - last 24 hr 06/03/17 06/03/17 06/03/17 07:56 10:00 11:00 WBC RBC Hgb Hct MCV MCH MCHC RDW Plt Count MPV Neutrophils % Lymphocytes % Monocytes % Eosinophils % Basophils % Puncture Site ABG pH ABG pCO2 at Pt Temp ABG pO2 at Pt Temp ABG HCO3 ABG O2 Sat (Measured) ABG O2 Content ABG Base Excess Izaiah Test O2 Delivery Device Oxygen Flow Rate Mechanical Rate PEEP Sodium 123 L* Potassium 5.1 Chloride 86 L Carbon Dioxide 16 L Anion Gap 21 H BUN 61 H Creatinine 6.1 H Creat Clearance w eGFR 8.25 POC Glucometer [phone] Random Glucose 1086 H* Hemoglobin A1c % Serum Osmolality Calcium 7.7 L Phosphorus Magnesium Total Bilirubin 0.8 AST 34 ALT 22 Alkaline Phosphatase 1290 H Creatine Kinase 126 Troponin I < 0.02 Total Protein 8.6 H Albumin 3.1 L Acetone, Qual Trace H 06/03/17 06/03/17 06/03/17 11:40 11:44 12:18 WBC RBC Hgb Hct MCV MCH MCHC RDW Plt Count MPV Neutrophils % Lymphocytes % Monocytes % Eosinophils % Basophils % Puncture Site Right radial ABG pH 7.19 L* ABG pCO2 at Pt Temp 39.4 ABG pO2 at Pt Temp 102.0 H ABG HCO3 14.5 L* ABG O2 Sat (Measured) 96.3 ABG O2 Content 10.5 L ABG Base Excess -12.3 L* Izaiah Test Positive O2 Delivery Device Nasal Oxygen Flow Rate 3l Mechanical Rate No PEEP 0.0 Sodium 123 L* Cancelled Potassium 4.5 Cancelled Chloride 89 L Cancelled Carbon Dioxide 15 L Cancelled Anion Gap 19 H Cancelled BUN 65 H Cancelled Creatinine 6.4 H Cancelled Creat Clearance w eGFR 7.81 POC Glucometer Random Glucose 1133 H* Cancelled Hemoglobin A1c % Serum Osmolality Calcium 7.0 L Cancelled Phosphorus 7.7 H Cancelled Magnesium 2.3 Cancelled Total Bilirubin 0.7 AST 22 ALT 20 Alkaline Phosphatase 1277 H Creatine Kinase 113 Troponin I < 0.02 Total Protein 7.9 Albumin 3.0 L Acetone, Qual 06/03/17 06/03/17 06/03/17 13:21 14:28 14:30 WBC RBC Hgb Hct MCV MCH MCHC RDW Plt Count MPV Neutrophils % Lymphocytes % Monocytes % Eosinophils % Basophils % Puncture Site ABG pH ABG pCO2 at Pt Temp ABG pO2 at Pt Temp ABG HCO3 ABG O2 Sat (Measured) ABG O2 Content ABG Base Excess Izaiah Test O2 Delivery Device Oxygen Flow Rate Mechanical Rate PEEP Sodium 126 L Potassium 4.2 Chloride 90 L Carbon Dioxide 16 L Anion Gap 20 H BUN 65 H Creatinine 6.5 H Creat Clearance w eGFR POC Glucometer > 400 > 400 Random Glucose 854 H* Hemoglobin A1c % Serum Osmolality Calcium 7.8 L Phosphorus Magnesium Total Bilirubin AST ALT Alkaline Phosphatase Creatine Kinase Troponin I Total Protein Albumin Acetone, Qual 06/03/17 06/03/17 06/03/17 15:40 16:22 18:15 WBC RBC Hgb Hct MCV MCH MCHC RDW Plt Count MPV Neutrophils % Lymphocytes % Monocytes % Eosinophils % Basophils % Puncture Site ABG pH ABG pCO2 at Pt Temp ABG pO2 at Pt Temp ABG HCO3 ABG O2 Sat (Measured) ABG O2 Content ABG Base Excess Izaiah Test O2 Delivery Device Oxygen Flow Rate Mechanical Rate PEEP Sodium Potassium Chloride Carbon Dioxide Anion Gap BUN Creatinine Creat Clearance w eGFR POC Glucometer > [phone] Random Glucose Hemoglobin A1c % Serum Osmolality 334 H Calcium Phosphorus Magnesium Total Bilirubin AST ALT Alkaline Phosphatase Creatine Kinase Troponin I Total Protein Albumin Acetone, Qual 03/04/2206/03/17 06/03/17 20:10 21:04 21:15 WBC RBC Hgb Hct MCV MCH MCHC RDW Plt Count MPV Neutrophils % Lymphocytes % Monocytes % Eosinophils % Basophils % Puncture Site ABG pH ABG pCO2 at Pt Temp ABG pO2 at Pt Temp ABG HCO3 ABG O2 Sat (Measured) ABG O2 Content ABG Base Excess Izaiah Test O2 Delivery Device Oxygen Flow Rate Mechanical Rate PEEP Sodium 135 L Potassium 3.2 L Chloride 97 L Carbon Dioxide 26 Anion Gap 12 BUN 30 H D Creatinine 3.7 H Creat Clearance w eGFR POC Glucometer 151.11983 140.71163 Random Glucose 100 Hemoglobin A1c % Serum Osmolality Calcium 8.0 L Phosphorus Magnesium Total Bilirubin AST ALT Alkaline Phosphatase Creatine Kinase Troponin I Total Protein Albumin Acetone, Qual 06/03/17 06/04/17 06/04/17 22:07 01:50 05:55 WBC 6.3 RBC 3.00 L Hgb 8.1 L Hct 25.1 L MCV 83.9 D MCH 27.1 MCHC 32.3 RDW 17.0 H Plt Count 375 MPV 8.6 Neutrophils % 62.0 D Lymphocytes % 16.6 D Monocytes % 16.3 H Eosinophils % 3.5 D Basophils % 1.6 Puncture Site ABG pH ABG pCO2 at Pt Temp ABG pO2 at Pt Temp ABG HCO3 ABG O2 Sat (Measured) ABG O2 Content ABG Base Excess Izaiah Test O2 Delivery Device Oxygen Flow Rate Mechanical Rate PEEP Sodium Potassium Chloride Carbon Dioxide Anion Gap BUN Creatinine Creat Clearance w eGFR POC Glucometer 89.78954 89.00498 Random Glucose Hemoglobin A1c % Serum Osmolality Calcium Phosphorus Magnesium Total Bilirubin AST ALT Alkaline Phosphatase Creatine Kinase Troponin I Total Protein Albumin Acetone, Qual 06/04/17 06/04/17 06/04/17 05:55 05:55 06:35 WBC RBC Hgb Hct MCV MCH MCHC RDW Plt Count MPV Neutrophils % Lymphocytes % Monocytes % Eosinophils % Basophils % Puncture Site ABG pH ABG pCO2 at Pt Temp ABG pO2 at Pt Temp ABG HCO3 ABG O2 Sat (Measured) ABG O2 Content ABG Base Excess Izaiah Test O2 Delivery Device Oxygen Flow Rate Mechanical Rate PEEP Sodium 136 Potassium 4.0 Chloride 99 Carbon Dioxide 28 Anion Gap 9 BUN 33 H Creatinine 4.2 H Creat Clearance w eGFR POC Glucometer 83.33930 Random Glucose 47 L* Hemoglobin A1c % 13.6 H Serum Osmolality Calcium 8.1 L Phosphorus 5.2 H Magnesium 2.0 Total Bilirubin AST ALT Alkaline Phosphatase Creatine Kinase Troponin I Total Protein Albumin Acetone, Qual Active Medications Generic Name Dose Route Start Last Admin Trade Name Freq PRN Reason Stop Dose Admin Acetaminophen 325 mg 06/03/17 15:36 06/04/17 01:43 Tylenol - PO 325 mg Q6H PRN Administration PAIN LEVEL 6-10 Apixaban 2.5 mg 06/03/17 22:00 06/04/17 09:39 Eliquis - PO 2.5 mg BID ROSA MARIA Administration Chlorhexidine Gluconate 1 applic 06/03/17 22:00 06/03/17 21:46 Hibiclens For Decolonization - TP 1 applic HS ROSA MARIA Administration Clonidine 0.3 mg 06/03/17 22:00 06/04/17 05:57 Catapres - PO 0.3 mg TID ROSA MARIA Administration Insulin Aspart 1 vial 06/03/17 22:15 06/04/17 07:52 Novolog Vial Sliding Scale - SQ Not Given Q4[facility] Protocol Insulin Detemir 16 units 06/03/17 22:15 06/04/17 07:52 Levemir Vial SQ Not Given BID@0700,2200 ROSA MARIA Labetalol HCl 400 mg 06/03/17 21:00 06/04/17 06:32 Normodyne - PO 400 mg TID ROSA MARIA Administration Losartan Potassium 100 mg 06/04/17 10:00 06/04/17 09:38 Cozaar - PO 100 mg DAILY ROSA MARIA Administration Mupirocin 1 applic 06/03/17 22:00 06/04/17 09:39 Bactroban Ointment (For Decolonization) - NS 06/08/17 21:59 1 applic BID ROSA MARIA Administration Nifedipine 30 mg 06/04/17 10:00 06/04/17 09:39 Procardia Xl - PO 30 mg DAILY ROSA MARIA Administration Oxycodone HCl 5 mg 06/03/17 15:36 06/04/17 01:43 Roxicodone - PO 5 mg Q6H PRN Administration PAIN LEVEL 6-10 Pantoprazole Sodium 40 mg 06/04/17 10:00 06/04/17 09:39 Protonix - PO 40 mg DAILY ROSA MARIA Administration ASSESSMENT/PLAN: Patient is a 26 year old female who presented for fatigue, weakness, and lethargy and was found to be in DKA with reports of skipping one session of dialysis. Patient admitted for further monitoring and management. ESRD on HD -HD with UF yesterday and removed 3.5kg -Plan for addition UF today -Fluid restriction -Renal Diet -Continue to trend BMP daily Anemia of Chronic Disease -Secondary to CKD -Continue Epogen with Dialysis -Continue to monitor CBC DKA -Patient off insulin drip with gap closed -Currently on Levemir -Would stop fluids as patient is in overload -Rest per ICU team HTN -Continue home medications Labetalol, Nifedipine, Hydralazine Gissell Muñoz MD-PGY2 Visit type - Emergency Visit Emergency Visit: Yes ED Registration Date: 06/03/17 Care time: The patient presented to the Emergency Department on the above date and was hospitalized for further evaluation of their emergent condition. - New Patient This patient is new to me today: Yes Date on this admission: 06/04/17 - Critical Care Critical Care patient: Yes Total Critical Care Time (in minutes): 45 Critical Care Statement: The care of this patient involved high complexity decision making to prevent further life threatening deterioration of the patient 's condition and/or to evaluate & treat vital organ system(s) failure or risk of failure.
--- NOTE | 2017-06-04 10:52 | CONSULT ---
Consult Consult Specialty:: endocrine Referred by:: emily Reason for Consultation:: diabetes mellitus iddm/dka - History of Present Illness Chief Complaint: high sugars History of Present Illness: 26F with history of ESRD normally on MWF dialysis, IDDM, HTN, PE and chronic osteo here today complaining of generalized weakness for the past few days. She states that she missed dialysis on Wednesday, so she was switched to a TThS ,has had difficulty with managing blood sugars,with labile sugars frequent admission with dka,has diabetic neuropathy,retinopathy now admitted with dka,responding with iv fluid and insulin therapy 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, PE, DVT) Pulmonary: Yes: Pulmonary Embolus Renal/: Yes: Renal Failure, Hemodialysis ...LMP: 05/13/17 Infectious Disease: Yes: MRSA (history of bacteremia, recent mrsa foot abscess) Endocrine: Yes: Diabetes Mellitus (type 1 on insulin pump) Additional Medical History: DVT, PE on coumadin - Past Surgical History Past Surgical History: Yes: AV Fistula/Graft (Right arm) - Alcohol/Substance Use Hx Alcohol Use: No History of Substance Use: reports: None - Smoking History Smoking history: Never smoked Have you smoked in the past 12 months: No Aproximately how many cigarettes per day: 10 - Social History Usual Living Arrangement: With Parent ADL: Independent Occupation: unemployed History of Recent Travel: No Home Medications - Allergies Allergies/Adverse Reactions: Allergies Allergy/AdvReac Type Severity Reaction Status Date / Time No Known Drug Allergies Allergy Verified 04/12/17 15:14 - Home Medications Home Medications: Ambulatory Orders Gabapentin 200 mg PO TID 03/11/16 Sevelamer Carbonate [Renvela -] 1,600 mg PO TIDCM #60 tab 07/14/16 Losartan Potassium [Cozaar -] 100 mg PO DAILY 12/21/16 Labetalol HCl [Normodyne -] 400 mg PO TID #60 tablet 12/26/16 cloNIDine HCL [Catapres -] 0.3 mg PO TID tablet 12/26/16 Insulin (Levemir) [Levemir Vial] 16 units SQ BID@0700,2200 ml 05/17/17 Diphenhydramine HCl 25 mg PO DAILY 06/03/17 Hydrocodone/Acetaminophen [Vicodin Hp 10-300 mg Tablet] 1 tab PO Q6H PRN Insulin Sliding Scale [Novolog Vial Sliding Scale -] 0 vial SQ ACHS 06/03/17 Nifedipine ER [Procardia Xl -] 30 mg PO DAILY 06/03/17 Family Disease History - Family Disease History Family Disease History: Diabetes: Grandparent (HTN), Heart Disease: Grandparent , Other: Father (unknown), Mother (HTN) Review of Systems - Review of Systems Constitutional: reports: Lethargy Eyes: reports: Blurred Vision HENT: reports: No Symptoms Neck: reports: No Symptoms Cardiovascular: reports: Shortness of Breath Respiratory: reports: Exercise Intolerance, SOB on Exertion Gastrointestinal: reports: Bloating Genitourinary: reports: No Symptoms Breasts: reports: No Symptoms Reported Integumentary: reports: No Symptoms Neurological: reports: Numbness, Weakness Endocrine: reports: Unexplained Weight Loss Hematology/Lymphatic: reports: No Symptoms Physical Exam Vital Signs: Vital Signs Temperature 98.0 F 06/04/17 06:00 Pulse Rate 77 06/04/17 08:00 Respiratory Rate 20 06/04/17 08:00 Blood Pressure 150/92 06/04/17 08:00 O2 Sat by Pulse Oximetry (%) 98 06/03/17 21:52 Constitutional: Yes: Calm Eyes: Yes: EOM Intact HENT: Yes: Normocephalic Neck: Yes: Trachea Midline Cardiovascular: Yes: Regular Rate and Rhythm Respiratory: Yes: CTA Bilaterally Gastrointestinal: Yes: Normal Bowel Sounds ...Rectal Exam: Yes: Deferred Renal/: Yes: Anuria Breast(s): Yes: WNL Edema: Yes Edema: LLE: 2+, RLE: 2+ Wound/Incision: Yes: Well Approximated Neurological: Yes: Alert, Oriented Labs: CBC, BMP 06/04/17 05:55 06/04/17 05:55 Problem List - Problems (1) Diabetic foot ulcer Code(s): E11.621 - TYPE 2 DIABETES MELLITUS WITH FOOT ULCER; L97.509 - NON- PRESSURE CHRONIC ULCER OTH PRT UNSP FOOT W UNSP SEVERITY (2) Hyperglycemia Code(s): R73.9 - HYPERGLYCEMIA, UNSPECIFIED (3) Acute on chronic diastolic CHF (congestive heart failure) Code(s): I50.33 - ACUTE ON CHRONIC DIASTOLIC (CONGESTIVE) HEART FAILURE (4) Acute respiratory failure Code(s): J96.00 - ACUTE RESPIRATORY FAILURE, UNSP W HYPOXIA OR HYPERCAPNIA (5) DKA (diabetic ketoacidosis) Code(s): E13.10 - OTH DIABETES MELLITUS WITH KETOACIDOSIS WITHOUT COMA Qualifiers: Diabetes mellitus type: type 1 Assessment/Plan Current Active Problems Diabetic foot ulcer (Acute) Hyperglycemia (Acute) dka iddm uncontrolled brittle dm Abnormal Lab Results 06/03/17 06/03/17 06/03/17 11:40 11:44 14:30 RBC Hgb Hct RDW Monocytes % ABG pH 7.19 L* ABG pO2 at Pt Temp 102.0 H ABG HCO3 14.5 L* ABG O2 Content 10.5 L ABG Base Excess -12.3 L* Sodium 123 L* 126 L Potassium Chloride 89 L 90 L Carbon Dioxide 15 L 16 L Anion Gap 19 H 20 H BUN 65 H 65 H Creatinine 6.4 H 6.5 H Random Glucose 1133 H* 854 H* Hemoglobin A1c % Serum Osmolality Calcium 7.0 L 7.8 L Phosphorus 7.7 H Alkaline Phosphatase 1277 H Albumin 3.0 L 06/03/17 06/03/17 06/04/17 15:40 21:15 05:55 RBC 3.00 L Hgb 8.1 L Hct 25.1 L RDW 17.0 H Monocytes % 16.3 H ABG pH ABG pO2 at Pt Temp ABG HCO3 ABG O2 Content ABG Base Excess Sodium 135 L Potassium 3.2 L Chloride 97 L Carbon Dioxide Anion Gap BUN 30 H D Creatinine 3.7 H Random Glucose Hemoglobin A1c % Serum Osmolality 334 H Calcium 8.0 L Phosphorus Alkaline Phosphatase Albumin 06/04/17 06/04/17 05:55 05:55 RBC Hgb Hct RDW Monocytes % ABG pH ABG pO2 at Pt Temp ABG HCO3 ABG O2 Content ABG Base Excess Sodium Potassium Chloride Carbon Dioxide Anion Gap BUN 33 H Creatinine 4.2 H Random Glucose 47 L* Hemoglobin A1c % 13.6 H Serum Osmolality Calcium 8.1 L Phosphorus 5.2 H Alkaline Phosphatase Albumin Laboratory Results - last 24 hr 06/03/17 06/03/17 06/03/17 11:00 11:40 11:44 WBC RBC Hgb Hct MCV MCH MCHC RDW Plt Count MPV Neutrophils % Lymphocytes % Monocytes % Eosinophils % Basophils % Puncture Site Right radial ABG pH 7.19 L* ABG pCO2 at Pt Temp 39.4 ABG pO2 at Pt Temp 102.0 H ABG HCO3 14.5 L* ABG O2 Sat (Measured) 96.3 ABG O2 Content 10.5 L ABG Base Excess -12.3 L* Izaiah Test Positive O2 Delivery Device Nasal Oxygen Flow Rate 3l Mechanical Rate No PEEP 0.0 Sodium 123 L* Potassium 4.5 Chloride 89 L Carbon Dioxide 15 L Anion Gap 19 H BUN 65 H Creatinine 6.4 H Creat Clearance w eGFR 7.81 POC Glucometer 345.23284 Random Glucose 1133 H* Hemoglobin A1c % Serum Osmolality Calcium 7.0 L Phosphorus 7.7 H Magnesium 2.3 Total Bilirubin 0.7 AST 22 ALT 20 Alkaline Phosphatase 1277 H Creatine Kinase 113 Troponin I < 0.02 Total Protein 7.9 Albumin 3.0 L 06/03/17 06/03/17 06/03/17 12:18 13:21 14:28 WBC RBC Hgb Hct MCV MCH MCHC RDW Plt Count MPV Neutrophils % Lymphocytes % Monocytes % Eosinophils % Basophils % Puncture Site ABG pH ABG pCO2 at Pt Temp ABG pO2 at Pt Temp ABG HCO3 ABG O2 Sat (Measured) ABG O2 Content ABG Base Excess Izaiah Test O2 Delivery Device Oxygen Flow Rate Mechanical Rate PEEP Sodium Cancelled Potassium Cancelled Chloride Cancelled Carbon Dioxide Cancelled Anion Gap Cancelled BUN Cancelled Creatinine Cancelled Creat Clearance w eGFR POC Glucometer > 400 > 400 Random Glucose Cancelled Hemoglobin A1c % Serum Osmolality Calcium Cancelled Phosphorus Cancelled Magnesium Cancelled Total Bilirubin AST ALT Alkaline Phosphatase Creatine Kinase Troponin I Total Protein Albumin 06/03/17 06/03/17 06/03/17 14:30 15:40 16:22 WBC RBC Hgb Hct MCV MCH MCHC RDW Plt Count MPV Neutrophils % Lymphocytes % Monocytes % Eosinophils % Basophils % Puncture Site ABG pH ABG pCO2 at Pt Temp ABG pO2 at Pt Temp ABG HCO3 ABG O2 Sat (Measured) ABG O2 Content ABG Base Excess Izaiah Test O2 Delivery Device Oxygen Flow Rate Mechanical Rate PEEP Sodium 126 L Potassium 4.2 Chloride 90 L Carbon Dioxide 16 L Anion Gap 20 H BUN 65 H Creatinine 6.5 H Creat Clearance w eGFR POC Glucometer > 400 Random Glucose 854 H* Hemoglobin A1c % Serum Osmolality 334 H Calcium 7.8 L Phosphorus Magnesium Total Bilirubin AST ALT Alkaline Phosphatase Creatine Kinase Troponin I Total Protein Albumin 06/03/17 06/03/17 06/03/17 18:15 20:10 21:04 WBC RBC Hgb Hct MCV MCH MCHC RDW Plt Count MPV Neutrophils % Lymphocytes % Monocytes % Eosinophils % Basophils % Puncture Site ABG pH ABG pCO2 at Pt Temp ABG pO2 at Pt Temp ABG HCO3 ABG O2 Sat (Measured) ABG O2 Content ABG Base Excess Izaiah Test O2 Delivery Device Oxygen Flow Rate Mechanical Rate PEEP Sodium Potassium Chloride Carbon Dioxide Anion Gap BUN Creatinine Creat Clearance w eGFR POC Glucometer 282.99577 151.04000 140.39917 Random Glucose Hemoglobin A1c % Serum Osmolality Calcium Phosphorus Magnesium Total Bilirubin AST ALT Alkaline Phosphatase Creatine Kinase Troponin I Total Protein Albumin 06/03/17 06/03/17 06/04/17 21:15 22:07 01:50 WBC RBC Hgb Hct MCV MCH MCHC RDW Plt Count MPV Neutrophils % Lymphocytes % Monocytes % Eosinophils % Basophils % Puncture Site ABG pH ABG pCO2 at Pt Temp ABG pO2 at Pt Temp ABG HCO3 ABG O2 Sat (Measured) ABG O2 Content ABG Base Excess Izaiah Test O2 Delivery Device Oxygen Flow Rate Mechanical Rate PEEP Sodium 135 L Potassium 3.2 L Chloride 97 L Carbon Dioxide 26 Anion Gap 12 BUN 30 H D Creatinine 3.7 H Creat Clearance w eGFR POC Glucometer 89.81462 89.64159 Random Glucose 100 Hemoglobin A1c % Serum Osmolality Calcium 8.0 L Phosphorus Magnesium Total Bilirubin AST ALT Alkaline Phosphatase Creatine Kinase Troponin I Total Protein Albumin 06/04/17 06/04/17 06/04/17 05:55 05:55 05:55 WBC 6.3 RBC 3.00 L Hgb 8.1 L Hct 25.1 L MCV 83.9 D MCH 27.1 MCHC 32.3 RDW 17.0 H Plt Count 375 MPV 8.6 Neutrophils % 62.0 D Lymphocytes % 16.6 D Monocytes % 16.3 H Eosinophils % 3.5 D Basophils % 1.6 Puncture Site ABG pH ABG pCO2 at Pt Temp ABG pO2 at Pt Temp ABG HCO3 ABG O2 Sat (Measured) ABG O2 Content ABG Base Excess Izaiah Test O2 Delivery Device Oxygen Flow Rate Mechanical Rate PEEP Sodium 136 Potassium 4.0 Chloride 99 Carbon Dioxide 28 Anion Gap 9 BUN 33 H Creatinine 4.2 H Creat Clearance w eGFR POC Glucometer Random Glucose 47 L* Hemoglobin A1c % 13.6 H Serum Osmolality Calcium 8.1 L Phosphorus 5.2 H Magnesium 2.0 Total Bilirubin AST ALT Alkaline Phosphatase Creatine Kinase Troponin I Total Protein Albumin 06/04/17 06:35 WBC RBC Hgb Hct MCV MCH MCHC RDW Plt Count MPV Neutrophils % Lymphocytes % Monocytes % Eosinophils % Basophils % Puncture Site ABG pH ABG pCO2 at Pt Temp ABG pO2 at Pt Temp ABG HCO3 ABG O2 Sat (Measured) ABG O2 Content ABG Base Excess Izaiah Test O2 Delivery Device Oxygen Flow Rate Mechanical Rate PEEP Sodium Potassium Chloride Carbon Dioxide Anion Gap BUN Creatinine Creat Clearance w eGFR POC Glucometer 83.87772 Random Glucose Hemoglobin A1c % Serum Osmolality Calcium Phosphorus Magnesium Total Bilirubin AST ALT Alkaline Phosphatase Creatine Kinase Troponin I Total Protein Albumin plan: bgm qid novolog insulin doses low dose levemir hs 5 units levemir 17 units am nutrition consult
--- NOTE | 2017-06-04 11:39 | PN ---
Teaching Attending Note Name of Resident: Kaylynn Nieto ATTENDING PHYSICIAN STATEMENT I saw and evaluated the patient. I reviewed the resident's note and discussed the case with the resident. I agree with the resident's findings and plan as documented. SUBJECTIVE: Feels overall better. AG closed. For HD today. Intake & Output 06/01/17 06/02/17 06/03/17 06/04/17 23:59 23:59 23:59 23:59 Intake Total 320 Balance 320 Weight 165 lb 5.547 oz Last Vital Signs Temp Pulse Resp BP Pulse Ox 98.7 F 106 H 20 153/90 98 06/04/17 10:00 06/04/17 10:00 06/04/17 10:00 06/04/17 10:00 06/03/17 21:52 Active Medications Acetaminophen (Tylenol -) 325 mg PO Q6H PRN PRN Reason: PAIN LEVEL 6-10 Last Admin: 06/04/17 01:43 Dose: 325 mg Apixaban (Eliquis -) 2.5 mg PO BID [facility] Last Admin: 06/04/17 09:39 Dose: 2.5 mg Chlorhexidine Gluconate (Hibiclens For Decolonization -) 1 applic TP HS [facility] Last Admin: 06/03/17 21:46 Dose: 1 applic Clonidine (Catapres -) 0.3 mg PO TID [facility] Last Admin: 06/04/17 05:57 Dose: 0.3 mg Insulin Aspart (Novolog Vial Sliding Scale -) 1 vial SQ Q4HPO [facility] PRN Reason: Protocol Last Admin: 06/04/17 10:41 Dose: 4 units Insulin Detemir (Levemir Vial) 18 units SQ AM [facility] Insulin Detemir (Levemir Vial) 5 units SQ HS [facility] Labetalol HCl (Normodyne -) 400 mg PO TID [facility] Last Admin: 06/04/17 06:32 Dose: 400 mg Losartan Potassium (Cozaar -) 100 mg PO DAILY [facility] Last Admin: 06/04/17 09:38 Dose: 100 mg Mupirocin (Bactroban Ointment (For Decolonization) -) 1 applic NS BID [facility] Stop: 06/08/17 21:59 Last Admin: 06/04/17 09:39 Dose: 1 applic Nifedipine (Procardia Xl -) 30 mg PO DAILY [facility] Last Admin: 06/04/17 09:39 Dose: 30 mg Oxycodone HCl (Roxicodone -) 5 mg PO Q6H PRN PRN Reason: PAIN LEVEL 6-10 Last Admin: 06/04/17 01:43 Dose: 5 mg Pantoprazole Sodium (Protonix -) 40 mg PO DAILY [facility] Last Admin: 06/04/17 09:39 Dose: 40 mg Gen: NAD at rest Heart: RRR Lung: decreased breath sounds at the bases Abd: soft, nontender Ext: + edema Laboratory Results - last 24 hr 06/03/17 06/03/17 06/03/17 11:40 11:44 12:18 WBC RBC Hgb Hct MCV MCH MCHC RDW Plt Count MPV Neutrophils % Lymphocytes % Monocytes % Eosinophils % Basophils % Puncture Site Right radial ABG pH 7.19 L* ABG pCO2 at Pt Temp 39.4 ABG pO2 at Pt Temp 102.0 H ABG HCO3 14.5 L* ABG O2 Sat (Measured) 96.3 ABG O2 Content 10.5 L ABG Base Excess -12.3 L* Izaiah Test Positive O2 Delivery Device Nasal Oxygen Flow Rate 3l Mechanical Rate No PEEP 0.0 Sodium 123 L* Cancelled Potassium 4.5 Cancelled Chloride 89 L Cancelled Carbon Dioxide 15 L Cancelled Anion Gap 19 H Cancelled BUN 65 H Cancelled Creatinine 6.4 H Cancelled Creat Clearance w eGFR 7.81 POC Glucometer Random Glucose 1133 H* Cancelled Hemoglobin A1c % Serum Osmolality Calcium 7.0 L Cancelled Phosphorus 7.7 H Cancelled Magnesium 2.3 Cancelled Total Bilirubin 0.7 AST 22 ALT 20 Alkaline Phosphatase 1277 H Creatine Kinase 113 Troponin I < 0.02 Total Protein 7.9 Albumin 3.0 L 06/03/17 06/03/17 06/03/17 13:21 14:28 14:30 WBC RBC Hgb Hct MCV MCH MCHC RDW Plt Count MPV Neutrophils % Lymphocytes % Monocytes % Eosinophils % Basophils % Puncture Site ABG pH ABG pCO2 at Pt Temp ABG pO2 at Pt Temp ABG HCO3 ABG O2 Sat (Measured) ABG O2 Content ABG Base Excess Izaiah Test O2 Delivery Device Oxygen Flow Rate Mechanical Rate PEEP Sodium 126 L Potassium 4.2 Chloride 90 L Carbon Dioxide 16 L Anion Gap 20 H BUN 65 H Creatinine 6.5 H Creat Clearance w eGFR POC Glucometer > 400 > 400 Random Glucose 854 H* Hemoglobin A1c % Serum Osmolality Calcium 7.8 L Phosphorus Magnesium Total Bilirubin AST ALT Alkaline Phosphatase Creatine Kinase Troponin I Total Protein Albumin 06/03/17 06/03/17 06/03/17 15:40 16:22 18:15 WBC RBC Hgb Hct MCV MCH MCHC RDW Plt Count MPV Neutrophils % Lymphocytes % Monocytes % Eosinophils % Basophils % Puncture Site ABG pH ABG pCO2 at Pt Temp ABG pO2 at Pt Temp ABG HCO3 ABG O2 Sat (Measured) ABG O2 Content ABG Base Excess Izaiah Test O2 Delivery Device Oxygen Flow Rate Mechanical Rate PEEP Sodium Potassium Chloride Carbon Dioxide Anion Gap BUN Creatinine Creat Clearance w eGFR POC Glucometer > 400 282.19685 Random Glucose Hemoglobin A1c % Serum Osmolality 334 H Calcium Phosphorus Magnesium Total Bilirubin AST ALT Alkaline Phosphatase Creatine Kinase Troponin I Total Protein Albumin 06/03/17 06/03/17 06/03/17 20:10 21:04 21:15 WBC RBC Hgb Hct MCV MCH MCHC RDW Plt Count MPV Neutrophils % Lymphocytes % Monocytes % Eosinophils % Basophils % Puncture Site ABG pH ABG pCO2 at Pt Temp ABG pO2 at Pt Temp ABG HCO3 ABG O2 Sat (Measured) ABG O2 Content ABG Base Excess Izaiah Test O2 Delivery Device Oxygen Flow Rate Mechanical Rate PEEP Sodium 135 L Potassium 3.2 L Chloride 97 L Carbon Dioxide 26 Anion Gap 12 BUN 30 H D Creatinine 3.7 H Creat Clearance w eGFR POC Glucometer 151.70625 140.68074 Random Glucose 100 Hemoglobin A1c % Serum Osmolality Calcium 8.0 L Phosphorus Magnesium Total Bilirubin AST ALT Alkaline Phosphatase Creatine Kinase Troponin I Total Protein Albumin 06/03/17 06/04/17 06/04/17 22:07 01:50 05:55 WBC 6.3 RBC 3.00 L Hgb 8.1 L Hct 25.1 L MCV 83.9 D MCH 27.1 MCHC 32.3 RDW 17.0 H Plt Count 375 MPV 8.6 Neutrophils % 62.0 D Lymphocytes % 16.6 D Monocytes % 16.3 H Eosinophils % 3.5 D Basophils % 1.6 Puncture Site ABG pH ABG pCO2 at Pt Temp ABG pO2 at Pt Temp ABG HCO3 ABG O2 Sat (Measured) ABG O2 Content ABG Base Excess Izaiah Test O2 Delivery Device Oxygen Flow Rate Mechanical Rate PEEP Sodium Potassium Chloride Carbon Dioxide Anion Gap BUN Creatinine Creat Clearance w eGFR POC Glucometer 89.96969 89.71600 Random Glucose Hemoglobin A1c % Serum Osmolality Calcium Phosphorus Magnesium Total Bilirubin AST ALT Alkaline Phosphatase Creatine Kinase Troponin I Total Protein Albumin 06/04/17 06/04/17 06/04/17 05:55 05:55 06:35 WBC RBC Hgb Hct MCV MCH MCHC RDW Plt Count MPV Neutrophils % Lymphocytes % Monocytes % Eosinophils % Basophils % Puncture Site ABG pH ABG pCO2 at Pt Temp ABG pO2 at Pt Temp ABG HCO3 ABG O2 Sat (Measured) ABG O2 Content ABG Base Excess Izaiah Test O2 Delivery Device Oxygen Flow Rate Mechanical Rate PEEP Sodium 136 Potassium 4.0 Chloride 99 Carbon Dioxide 28 Anion Gap 9 BUN 33 H Creatinine 4.2 H Creat Clearance w eGFR POC Glucometer 83.05057 Random Glucose 47 L* Hemoglobin A1c % 13.6 H Serum Osmolality Calcium 8.1 L Phosphorus 5.2 H Magnesium 2.0 Total Bilirubin AST ALT Alkaline Phosphatase Creatine Kinase Troponin I Total Protein Albumin ASSESSMENT AND PLAN: Diabetic Ketoacidosis ESRD on HD HTN h/o DVT Noncompliance - SQ insulin regimen - HD per renal with ultrafiltration - O2 to keep SpO2 >90% - DVT prophylaxis Dr Ballesteros
--- NOTE | 2017-06-04 12:19 | PN ---
Progress Note (short form) - Note Progress Note: Renal follow up for ESRD on dialysis Pt seen and examined in the ICU awake and alert off insulin gtt no sob, chest pain, abd pain has some discomfort in her left leg/thigh Vital Signs Temperature 98.7 F 06/04/17 10:00 Pulse Rate 106 H 06/04/17 10:00 Respiratory Rate 20 06/04/17 10:00 Blood Pressure 153/90 06/04/17 10:00 O2 Sat by Pulse Oximetry (%) 98 06/03/17 21:52 Intake & Output 06/01/17 06/02/17 06/03/17 06/04/17 23:59 23:59 23:59 23:59 Intake Total 320 Balance 320 Weight 75 kg NAD awake and alert RRR CTA 2+ edema in B/L LE CBC, BMP 06/04/17 05:55 06/04/17 05:55 Current Medications Acetaminophen (Tylenol -) 325 mg PO Q6H PRN PRN Reason: PAIN LEVEL 6-10 Last Admin: 06/04/17 11:46 Dose: 325 mg Apixaban (Eliquis -) 2.5 mg PO BID [facility] Last Admin: 06/04/17 09:39 Dose: 2.5 mg Chlorhexidine Gluconate (Hibiclens For Decolonization -) 1 applic TP HS [facility] Last Admin: 06/03/17 21:46 Dose: 1 applic Clonidine (Catapres -) 0.3 mg PO TID [facility] Last Admin: 06/04/17 05:57 Dose: 0.3 mg Insulin Aspart (Novolog Vial Sliding Scale -) 1 vial SQ Q4HPO [facility] PRN Reason: Protocol Last Admin: 06/04/17 10:41 Dose: 4 units Insulin Detemir (Levemir Vial) 18 units SQ AM [facility] Insulin Detemir (Levemir Vial) 5 units SQ HS [facility] Labetalol HCl (Normodyne -) 400 mg PO TID [facility] Last Admin: 06/04/17 06:32 Dose: 400 mg Losartan Potassium (Cozaar -) 100 mg PO DAILY [facility] Last Admin: 06/04/17 09:38 Dose: 100 mg Mupirocin (Bactroban Ointment (For Decolonization) -) 1 applic NS BID [facility] Stop: 06/08/17 21:59 Last Admin: 06/04/17 09:39 Dose: 1 applic Nifedipine (Procardia Xl -) 30 mg PO DAILY [facility] Last Admin: 06/04/17 09:39 Dose: 30 mg Oxycodone HCl (Roxicodone -) 5 mg PO Q6H PRN PRN Reason: PAIN LEVEL 6-10 Last Admin: 06/04/17 11:43 Dose: 5 mg Pantoprazole Sodium (Protonix -) 40 mg PO DAILY [facility] Last Admin: 06/04/17 09:39 Dose: 40 mg 26 year old woman with PMhx of ESRD on HD (MWF), Hypertension, IDDM, Hx of Osteomylitis who presented with Weakness and found to have DKA. #ESRD on HD with volume overload s/p dialysis yesterday with 3.5kg UF for additional dialysis today to resume regular schedule continue fluid and salt restriction #DKA continue Insulin gtt no fluids bc pt is volume overloaded #Hypertension Continue Labetalol, Nifedpine, Clondiine #CKD related Anemia continue MACIE with HD no indication for transfusion at this time Thank you Nathan Vo DO
--- NOTE | 2017-06-04 12:33 | PN ---
Teaching Attending Note Name of Resident: Paris Gaona ATTENDING PHYSICIAN STATEMENT Time of evaluation: 9:00 AM I saw and evaluated the patient. I reviewed the resident's note and discussed the case with the resident. I agree with the resident's findings and plan as documented. SUBJECTIVE: Patient seen and examined, no complaints. Denies any nausea, vomiting, abdominal pain or urinary symptoms. No chest pain or dyspnea. PO intake well this AM. OBJECTIVE: Vital Signs Period Temp Pulse Resp BP Sys/Ames Pulse Ox Last 24 Hr 97.5 F-98.7 F 72-106 18-20 130-190/80-113 98 Intake & Output 06/01/17 06/02/17 06/03/17 06/04/17 23:59 23:59 23:59 23:59 Intake Total 320 Balance 320 Weight 165 lb 5.547 oz General: sitting in bed in no acute distress CVS;S1S2 regular Chest: CTAB, no rales or wheezing abdomen: soft, obese, NT throughout, no CVA tenderness Extremities: RLE edema, dressing right foot, right plantar ulcer, no purulent discharge Home Medication List Medication Instructions Recorded Confirmed Type Gabapentin 200 mg PO TID 03/11/16 06/03/17 History Losartan Potassium [Cozaar -] 100 mg PO DAILY 12/21/16 06/03/17 History Diphenhydramine HCl 25 mg PO DAILY 06/03/17 06/03/17 History Hydrocodone/Acetaminophen [Vicodin 1 tab PO Q6H PRN 06/03/17 06/03/17 History Hp 10-300 mg Tablet] Insulin Sliding Scale [Novolog 0 vial SQ ACHS 06/03/17 06/03/17 History Vial Sliding Scale -] Nifedipine ER [Procardia Xl -] 30 mg PO DAILY 06/03/17 06/03/17 History Active Medications Generic Name Dose Route Start Last Admin Trade Name Freq PRN Reason Stop Dose Admin Acetaminophen 325 mg 06/03/17 15:36 06/04/17 11:46 Tylenol - PO 325 mg Q6H PRN Administration PAIN LEVEL 6-10 Apixaban 2.5 mg 06/03/17 22:00 06/04/17 09:39 Eliquis - PO 2.5 mg BID ROSA MARIA Administration Chlorhexidine Gluconate 1 applic 06/03/17 22:00 06/03/17 21:46 Hibiclens For Decolonization - TP 1 applic HS ROSA MARIA Administration Clonidine 0.3 mg 06/03/17 22:00 06/04/17 05:57 Catapres - PO 0.3 mg TID ROSA MARIA Administration Insulin Aspart 1 vial 06/03/17 22:15 06/04/17 10:41 Novolog Vial Sliding Scale - SQ 4 units Q4HPO ROSA MARIA Administration Protocol Insulin Detemir 18 units 06/05/17 07:00 Levemir Vial SQ AM ROSA MARIA Insulin Detemir 5 units 06/04/17 22:00 Levemir Vial SQ HS ROSA MARIA Labetalol HCl 400 mg 06/03/17 21:00 06/04/17 06:32 Normodyne - PO 400 mg TID ROSA MARIA Administration Losartan Potassium 100 mg 06/04/17 10:00 06/04/17 09:38 Cozaar - PO 100 mg DAILY ROSA MARIA Administration Mupirocin 1 applic 06/03/17 22:00 06/04/17 09:39 Bactroban Ointment (For Decolonization) - NS 06/08/17 21:59 1 applic BID ROSA MARIA Administration Nifedipine 30 mg 06/04/17 10:00 06/04/17 09:39 Procardia Xl - PO 30 mg DAILY ROSA MARIA Administration Oxycodone HCl 5 mg 06/03/17 15:36 06/04/17 11:43 Roxicodone - PO 5 mg Q6H PRN Administration PAIN LEVEL 6-10 Pantoprazole Sodium 40 mg 06/04/17 10:00 06/04/17 09:39 Protonix - PO 40 mg DAILY ROSA MARIA Administration Home Medication List Medication Instructions Recorded Confirmed Type Gabapentin 200 mg PO TID 03/11/16 06/03/17 History Losartan Potassium [Cozaar -] 100 mg PO DAILY 12/21/16 06/03/17 History Diphenhydramine HCl 25 mg PO DAILY 06/03/17 06/03/17 History Hydrocodone/Acetaminophen [Vicodin 1 tab PO Q6H PRN 06/03/17 06/03/17 History Hp 10-300 mg Tablet] Insulin Sliding Scale [Novolog 0 vial SQ ACHS 06/03/17 06/03/17 History Vial Sliding Scale -] Nifedipine ER [Procardia Xl -] 30 mg PO DAILY 06/03/17 06/03/17 History Laboratory Results - last 24 hr 06/03/17 06/03/17 06/03/17 08:02 11:40 12:18 WBC RBC Hgb Hct MCV MCH MCHC RDW Plt Count MPV Neutrophils % Lymphocytes % Monocytes % Eosinophils % Basophils % Sodium 123 L* Cancelled Potassium 4.5 Cancelled Chloride 89 L Cancelled Carbon Dioxide 15 L Cancelled Anion Gap 19 H Cancelled BUN 65 H Cancelled Creatinine 6.4 H Cancelled Creat Clearance w eGFR 7.81 POC Glucometer Random Glucose 1133 H* Cancelled Hemoglobin A1c % Serum Osmolality Lactic Acid 1.2 Calcium 7.0 L Cancelled Phosphorus 7.7 H Cancelled Magnesium 2.3 Cancelled Total Bilirubin 0.7 AST 22 ALT 20 Alkaline Phosphatase 1277 H Creatine Kinase 113 Troponin I < 0.02 Total Protein 7.9 Albumin 3.0 L 06/03/17 06/03/17 06/03/17 13:21 14:28 14:30 WBC RBC Hgb Hct MCV MCH MCHC RDW Plt Count MPV Neutrophils % Lymphocytes % Monocytes % Eosinophils % Basophils % Sodium 126 L Potassium 4.2 Chloride 90 L Carbon Dioxide 16 L Anion Gap 20 H BUN 65 H Creatinine 6.5 H Creat Clearance w eGFR POC Glucometer > 400 > 400 Random Glucose 854 H* Hemoglobin A1c % Serum Osmolality Lactic Acid Calcium 7.8 L Phosphorus Magnesium Total Bilirubin AST ALT Alkaline Phosphatase Creatine Kinase Troponin I Total Protein Albumin 06/03/17 06/03/17 06/03/17 15:40 16:22 18:15 WBC RBC Hgb Hct MCV MCH MCHC RDW Plt Count MPV Neutrophils % Lymphocytes % Monocytes % Eosinophils % Basophils % Sodium Potassium Chloride Carbon Dioxide Anion Gap BUN Creatinine Creat Clearance w eGFR POC Glucometer > 400 282.11770 Random Glucose Hemoglobin A1c % Serum Osmolality 334 H Lactic Acid Calcium Phosphorus Magnesium Total Bilirubin AST ALT Alkaline Phosphatase Creatine Kinase Troponin I Total Protein Albumin 06/03/17 06/03/17 06/03/17 20:10 21:04 21:15 WBC RBC Hgb Hct MCV MCH MCHC RDW Plt Count MPV Neutrophils % Lymphocytes % Monocytes % Eosinophils % Basophils % Sodium 135 L Potassium 3.2 L Chloride 97 L Carbon Dioxide 26 Anion Gap 12 BUN 30 H D Creatinine 3.7 H Creat Clearance w eGFR POC Glucometer 151.75207 140.18283 Random Glucose 100 Hemoglobin A1c % Serum Osmolality Lactic Acid Calcium 8.0 L Phosphorus Magnesium Total Bilirubin AST ALT Alkaline Phosphatase Creatine Kinase Troponin I Total Protein Albumin 06/03/17 06/04/17 06/04/17 22:07 01:50 05:55 WBC 6.3 RBC 3.00 L Hgb 8.1 L Hct 25.1 L MCV 83.9 D MCH 27.1 MCHC 32.3 RDW 17.0 H Plt Count 375 MPV 8.6 Neutrophils % 62.0 D Lymphocytes % 16.6 D Monocytes % 16.3 H Eosinophils % 3.5 D Basophils % 1.6 Sodium Potassium Chloride Carbon Dioxide Anion Gap BUN Creatinine Creat Clearance w eGFR POC Glucometer 89.44003 89.75465 Random Glucose Hemoglobin A1c % Serum Osmolality Lactic Acid Calcium Phosphorus Magnesium Total Bilirubin AST ALT Alkaline Phosphatase Creatine Kinase Troponin I Total Protein Albumin 06/04/17 06/04/17 06/04/17 05:55 05:55 06:35 WBC RBC Hgb Hct MCV MCH MCHC RDW Plt Count MPV Neutrophils % Lymphocytes % Monocytes % Eosinophils % Basophils % Sodium 136 Potassium 4.0 Chloride 99 Carbon Dioxide 28 Anion Gap 9 BUN 33 H Creatinine 4.2 H Creat Clearance w eGFR POC Glucometer 83.62525 Random Glucose 47 L* Hemoglobin A1c % 13.6 H Serum Osmolality Lactic Acid Calcium 8.1 L Phosphorus 5.2 H Magnesium 2.0 Total Bilirubin AST ALT Alkaline Phosphatase Creatine Kinase Troponin I Total Protein Albumin 06/04/17 09:58 WBC RBC Hgb Hct MCV MCH MCHC RDW Plt Count MPV Neutrophils % Lymphocytes % Monocytes % Eosinophils % Basophils % Sodium Potassium Chloride Carbon Dioxide Anion Gap BUN Creatinine Creat Clearance w eGFR POC Glucometer 286.49951 Random Glucose Hemoglobin A1c % Serum Osmolality Lactic Acid Calcium Phosphorus Magnesium Total Bilirubin AST ALT Alkaline Phosphatase Creatine Kinase Troponin I Total Protein Albumin Microbiology 06/03/17 07:56 Foot - Right Plantar Gram Stain - Final 06/03/17 07:56 Foot - Right Plantar Wound Culture - Preliminary Staphylococcus Coagulase Neg 06/03/17 07:56 Blood - Peripheral Venous Blood Culture - Preliminary NO GROWTH OBTAINED AFTER 24 HOURS, INCUBATION TO CONTINUE FOR 4 DAYS. 06/03/17 08:02 Blood - Peripheral Venous Blood Culture - Preliminary NO GROWTH OBTAINED AFTER 24 HOURS, INCUBATION TO CONTINUE FOR 4 DAYS. ASSESSMENT AND PLAN: 26 yof, non compliant, IDDM, ESRD on HD, on 3 L home oxygen, ?PE on Eliquis ( non compliant given concerns for nose bleed), atrial myxoma s/p surgery, myositis, h/o MRSA bacteremia, diabetic foot infections, HTN admitted with DKA/ hypertensive urgency. -DKA, resolved -IDDM -Hypertensive urgency -ESRD on HD -h/o PE on eliquis -atrial myxoma s/p surgery -h/o diabetic foot infections/MRSA bacteremia -h/o myositis Plan: Anion gap closed. Eating diet, on subq insulin. Endocrine input noted. Levemir 17-5 units BID. Patient stressed on home blood glucose checks and compliance, currently not compliant with Blood sugar checks. resumed on HD, another session today as discussed with Dr. Vo. BP better after resuming home anti-hypertensives. Eliquis resumed, patient non compliant given concerns for nose bleed, compliance stressed. Defer diabetic foot management to Dr. Dubon and ID outpatient. Medical clinic appointment if patient willing. dc home today after HD on continued home regimen and continued counseling on compliance and close follow up needs. Plan discussed with patient in detail, all questions answered.
--- NOTE | 2017-06-04 15:01 | DS ---
Physical Exam: SUBJECTIVE: Patient seen and examined. Pt c/o chronic headache, unchanged for her normal headache. Pt denies abdominal pain, nausea, vomiting, chest pain, sob, fever, chills. Pt tolerating po. OBJECTIVE: Vital Signs Period Temp Pulse Resp BP Sys/Ames Pulse Ox Last 24 Hr 97.5 F-98.7 F 76-106 18-20 130-190/80-113 98 PHYSICAL EXAM GENERAL: The patient is awake, alert, and fully oriented, in no acute distress. HEAD: normocephalic, atraumatic LUNGS: Breath sounds equal, clear to auscultation bilaterally, no wheezes, no crackles, no accessory muscle use. HEART: Regular rate and rhythm, S1, S2 without murmur, rub or gallop. ABDOMEN: Soft, nontender, nondistended, normoactive bowel sounds, no guarding. EXTREMITIES: Warm, well-perfused, no edema. Right LE with dressing to Right foot, pt reports ulcer to plantar aspect of foot. Dressing CDI. LABS Laboratory Results - last 24 hr 06/03/17 06/03/17 06/03/17 08:02 14:28 14:30 WBC RBC Hgb Hct MCV MCH MCHC RDW Plt Count MPV Neutrophils % Lymphocytes % Monocytes % Eosinophils % Basophils % Sodium 126 L Potassium 4.2 Chloride 90 L Carbon Dioxide 16 L Anion Gap 20 H BUN 65 H Creatinine 6.5 H POC Glucometer > 400 Random Glucose 854 H* Hemoglobin A1c % Serum Osmolality Lactic Acid 1.2 Calcium 7.8 L Phosphorus Magnesium 06/03/17 06/03/17 06/03/17 15:40 16:22 18:15 WBC RBC Hgb Hct MCV MCH MCHC RDW Plt Count MPV Neutrophils % Lymphocytes % Monocytes % Eosinophils % Basophils % Sodium Potassium Chloride Carbon Dioxide Anion Gap BUN Creatinine POC Glucometer > 400 282.60752 Random Glucose Hemoglobin A1c % Serum Osmolality 334 H Lactic Acid Calcium Phosphorus Magnesium 06/03/17 06/03/17 06/03/17 20:10 21:04 21:15 WBC RBC Hgb Hct MCV MCH MCHC RDW Plt Count MPV Neutrophils % Lymphocytes % Monocytes % Eosinophils % Basophils % Sodium 135 L Potassium 3.2 L Chloride 97 L Carbon Dioxide 26 Anion Gap 12 BUN 30 H D Creatinine 3.7 H POC Glucometer 151.21837 140.24142 Random Glucose 100 Hemoglobin A1c % Serum Osmolality Lactic Acid Calcium 8.0 L Phosphorus Magnesium 06/03/17 06/04/17 06/04/17 22:07 01:50 05:55 WBC 6.3 RBC 3.00 L Hgb 8.1 L Hct 25.1 L MCV 83.9 D MCH 27.1 MCHC 32.3 RDW 17.0 H Plt Count 375 MPV 8.6 Neutrophils % 62.0 D Lymphocytes % 16.6 D Monocytes % 16.3 H Eosinophils % 3.5 D Basophils % 1.6 Sodium Potassium Chloride Carbon Dioxide Anion Gap BUN Creatinine POC Glucometer 89.53155 89.37739 Random Glucose Hemoglobin A1c % Serum Osmolality Lactic Acid Calcium Phosphorus Magnesium 06/04/17 06/04/17 06/04/17 05:55 05:55 06:35 WBC RBC Hgb Hct MCV MCH MCHC RDW Plt Count MPV Neutrophils % Lymphocytes % Monocytes % Eosinophils % Basophils % Sodium 136 Potassium 4.0 Chloride 99 Carbon Dioxide 28 Anion Gap 9 BUN 33 H Creatinine 4.2 H POC Glucometer 83.30020 Random Glucose 47 L* Hemoglobin A1c % 13.6 H Serum Osmolality Lactic Acid Calcium 8.1 L Phosphorus 5.2 H Magnesium 2.0 06/04/17 09:58 WBC RBC Hgb Hct MCV MCH MCHC RDW Plt Count MPV Neutrophils % Lymphocytes % Monocytes % Eosinophils % Basophils % Sodium Potassium Chloride Carbon Dioxide Anion Gap BUN Creatinine POC Glucometer 286.28370 Random Glucose Hemoglobin A1c % Serum Osmolality Lactic Acid Calcium Phosphorus Magnesium HOSPITAL COURSE: Date of Admission:06/03/17 Date of Discharge: 06/04/17 26F non compliant with medications or health recommendations with PMH of IDDM, ESRD (on HD MWF), on home O2 3L, DVT (noncompliant with Eliquis 2/2 nosebleeds) , anemia, MRSA bacteremia, DM foot ulcer, cardiac myxoma, myositis, presents with weakness and increased adan LE edema, admitted for DKA and hypertensive urgency. Anion gap closed. Hypertensive urgency resolved. Pt seen by Endocrinology (Dr. Cassidy) and Nephrology (Dr. Vo). Pt to f/u with Podiatry (Dr. Dubon) for DM foot ulcer management. Pt to receive IV Vancomycin after HD today. Compliance with medications and BGMs emphasized. 06/03/17 CXR -> slight increase in central markings 06/04/17 adan LE Doppler -> no DVTs. Right upper medial calf with 5.4x1.3cm hypoechoic focus new since 04/12/17, Ddx: focal myositis vs dissecting popliteal cyst. Left upper medial thigh with diminished echogenicity, Ddx: myositis vs myonecrosis. F/u US if desired. Microbiology 06/03/17 07:56 Foot - Right Plantar Gram Stain - Final 06/03/17 07:56 Foot - Right Plantar Wound Culture - Preliminary Staphylococcus Coagulase Neg 06/03/17 07:56 Blood - Peripheral Venous Blood Culture - Preliminary NO GROWTH OBTAINED AFTER 24 HOURS, INCUBATION TO CONTINUE FOR 4 DAYS. 06/03/17 08:02 Blood - Peripheral Venous Blood Culture - Preliminary NO GROWTH OBTAINED AFTER 24 HOURS, INCUBATION TO CONTINUE FOR 4 DAYS. DKA resolved. Pt tolerating po. Pt stable for discharge home after hemodialysis treatment today. Minutes to complete discharge: 45 <Paris Gaona - Last Filed: 06/04/17 17:25> Physical Exam: SUBJECTIVE: Patient seen and examined OBJECTIVE: Vital Signs Period Temp Pulse Resp BP Sys/Ames Pulse Ox Last 24 Hr 98.2 F-99.0 F 81-106 18-20 133-188/66-111 98 PHYSICAL EXAM GENERAL: The patient is awake, alert, and fully oriented, in no acute distress. HEAD: Normal with no signs of trauma. EYES: PERRL, extraocular movements intact, sclera anicteric, conjunctiva clear. ENT: Ears normal, nares patent, oropharynx clear without exudates, moist mucous membranes. NECK: Trachea midline, full range of motion, supple. LUNGS: Breath sounds equal, clear to auscultation bilaterally, no wheezes, no crackles, no accessory muscle use. HEART: Regular rate and rhythm, S1, S2 without murmur, rub or gallop. ABDOMEN: Soft, nontender, nondistended, normoactive bowel sounds, no guarding, no rebound, no hepatosplenomegaly, no masses. EXTREMITIES: 2+ pulses, warm, well-perfused, no edema. NEUROLOGICAL: Cranial nerves II through XII grossly intact. Normal speech, gait not observed. PSYCH: Normal mood, normal affect. SKIN: Warm, dry, normal turgor, no rashes or lesions noted. LABS Laboratory Results - last 24 hr 06/03/17 06/04/17 06/04/17 08:02 09:58 13:44 POC Glucometer 286.70393 269.54888 Lactic Acid 1.2 06/04/17 06/04/17 06/05/17 18:16 20:45 01:43 POC Glucometer 315.87592 144.78304 82 Lactic Acid 06/05/17 05:43 POC Glucometer 93 Lactic Acid HOSPITAL COURSE: Date of Admission:06/03/17 Date of Discharge: 06/05/17 <Nicole Reynolds - Last Filed: 06/05/17 11:08> Discharge Summary Reason For Visit: HYPERGLYCEMIA Current Active Problems Anemia (Acute) DKA, type 1 (Acute) Diabetes mellitus, insulin dependent (IDDM), uncontrolled (Acute) Diabetic foot ulcer (Acute) Diabetic foot ulcer (Acute) End stage chronic kidney disease (Acute) Fluid overload (Acute) Hyperglycemia (Acute) Hypertensive urgency (Acute) Swelling of right lower extremity (Acute) ESRD (end stage renal disease) on dialysis (Chronic) HTN (hypertension) (Chronic) - Home Medications Comprehensive Discharge Medication List: Ambulatory Orders Sevelamer Carbonate [Renvela -] 1,600 mg PO TIDCM #60 tab 07/14/16 Losartan Potassium [Cozaar -] 100 mg PO DAILY 12/21/16 Labetalol HCl [Normodyne -] 400 mg PO TID #60 tablet 12/26/16 cloNIDine HCL [Catapres -] 0.3 mg PO TID tablet 12/26/16 Hydrocodone/Acetaminophen [Vicodin Hp 10-300 mg Tablet] 1 tab PO Q6H PRN Insulin Sliding Scale [Novolog Vial Sliding Scale -] 0 vial SQ ACHS 06/03/17 Nifedipine ER [Procardia XL -] 30 mg PO DAILY 06/03/17 Apixaban [Eliquis -] 5 mg PO BID tablet 06/04/17 Hydralazine HCl 75 mg PO TID 06/04/17 Insulin (Levemir) [Levemir Vial] 5 units SQ HS ml 06/04/17 Insulin (Levemir) [Levemir Vial] 17 units SQ AM #0 ml 06/04/17 <Paris Gaona - Last Filed: 06/04/17 17:25> Current Active Problems Anemia (Acute) DKA, type 1 (Acute) Diabetes mellitus, insulin dependent (IDDM), uncontrolled (Acute) Diabetic foot ulcer (Acute) Diabetic foot ulcer (Acute) End stage chronic kidney disease (Acute) Fluid overload (Acute) Hyperglycemia (Acute) Hypertensive urgency (Acute) Swelling of right lower extremity (Acute) ESRD (end stage renal disease) on dialysis (Chronic) HTN (hypertension) (Chronic) Hospital Course: patient stayed overnight after HD given d/c planning arrangements. D/c home today, d/c plan and recommendations unchanged and discussed with patient . total d/c time spent 45 min - Home Medications Comprehensive Discharge Medication List: Ambulatory Orders Sevelamer Carbonate [Renvela -] 1,600 mg PO TIDCM #60 tab 07/14/16 Losartan Potassium [Cozaar -] 100 mg PO DAILY 12/21/16 Labetalol HCl [Normodyne -] 400 mg PO TID #60 tablet 12/26/16 cloNIDine HCL [Catapres -] 0.3 mg PO TID tablet 12/26/16 Hydrocodone/Acetaminophen [Vicodin Hp 10-300 mg Tablet] 1 tab PO Q6H PRN Insulin Sliding Scale [Novolog Vial Sliding Scale -] 0 vial SQ ACHS 06/03/17 Nifedipine ER [Procardia XL -] 30 mg PO DAILY 06/03/17 Apixaban [Eliquis -] 5 mg PO BID tablet 06/04/17 Hydralazine HCl 75 mg PO TID 06/04/17 Insulin (Levemir) [Levemir Vial] 5 units SQ HS ml 06/04/17 Insulin (Levemir) [Levemir Vial] 17 units SQ AM #0 ml 06/04/17 <Nicole Reynolds - Last Filed: 06/05/17 11:08> Condition: Improved - Instructions Diet, Activity, Other Instructions: You were treated for Diabetic Ketoacidosis (DKA) and hypertensive emergency ( elevated blood pressure). Changes to your Medications: - Your doses of long-acting insulin were changed to: Levemir 17 units in the morning and 5 units at bedtime. - Take your other home medications as prescribed. Eat a diabetic, low sodium diet. Increase physical activity as tolerated. Follow-ups: - schedule an appointment with your Medical Voucher Clerk (Dr. Cassidy) in 1 week. Check your blood sugar 4 times daily (before meals and before bed), keep a log of these values, and bring this log to this doctor appointment. - schedule an appointment with your Sewer Pipe Offbearer (Dr. Vo). Resume your Wednesday/Wednesday/Wednesday hemodialysis schedule. - with Infectious Disease (Dr. Fernandez) regarding IV antibiotics after hemodialysis - schedule an appointment with Dr. Dubon (Podiatry) in 1 week to continue wound care for your Right foot - schedule an appointment with a Primary Care Physician (contact information for our Resident [facility] is attached under Dr. Bermudez's name) in 1 week. Please return to the hospital immediately if you experience persistent or increased abdominal pain, lower leg swelling, weakness, dizziness, fever, chills , chest pain, difficulty breathing, or for any medical emergency. Referrals: Andrea Bermudez MD [Staff Physician] - 1 Week Tyrone Fernandez MD [Staff Physician] - 1 Week Devan Dubon MD [Staff Physician] - 1 Week Corey Cassidy MD [Staff Physician] - 1 Week Nathan Vo MD [Staff Physician] - 1 Week Disposition: HOME This patient is new to me today: Yes Date on this admission: 06/04/17 Emergency Visit: Yes ED Registration Date: 06/03/17 Care time: The patient presented to the Emergency Department on the above date and was hospitalized for further evaluation of their emergent condition. Critical Care patient: Yes Total Critical Care Time (in minutes): 45 Critical Care Statement: The care of this patient involved high complexity decision making to prevent further life threatening deterioration of the patient 's condition and/or to evaluate & treat vital organ system(s) failure or risk of failure. - Discharge Referral Referred to [facility] Med [facility] No <Paris Gaona - Last Filed: 06/04/17 17:25>
[2017-06-04] MEDS ORDERED: VANCOMYCIN 1,000 MG in DEXTROSE 5%-WATER - 250 ML IVPB ONE (16:38)
[2017-06-04] MEDS ORDERED: diphenhydrAMINE HCL 12.5 MG/5 ML UNIT-DOSE CUPS PO ONE (17:23)
[2017-06-04] MEDS ORDERED: LORATADINE 10 MG TABLET PO ONE (17:45)
[2017-06-04] MEDS ORDERED: BACITRACIN 15 GM TUBE TOPICAL OINTMENT TP SCH (17:45)
[2017-06-04] MEDS: CHLORHEXIDINE GLUCONATE 4% CLEANSER FOR DECOLONIZATION TP SCH (21:57)
[2017-06-04] MEDS ORDERED: INSULIN DETEMIR 100 UNITS/ML MDV SQ SCH (22:00)
[2017-06-04] MEDS ORDERED: oxyCODONE HCL 5 MG TABLET PO PRN (23:29)
[2017-06-04] MEDS ORDERED: ACETAMINOPHEN 325 MG TABLET (FP) PO PRN (23:29)
[2017-06-05] MEDS: INSULIN SLIDING SCALE (NOVOLOG) 1 VIAL SQ SCH ×3 (01:49→13:39)
[2017-06-05] MEDS ORDERED: INSULIN (NOVOLOG) ASPART 100 UNITS/ML 10ML VIAL ONE (05:23)
[2017-06-05] MEDS ORDERED: LABETALOL HCL 200 MG TABLET (FP) PO SCH (06:00)
[2017-06-05] MEDS ORDERED: cloNIDine HCL 0.1 MG TABLET PO SCH (06:00)
[2017-06-05] MEDS: INSULIN DETEMIR 100 UNITS/ML MDV SQ SCH ×2 (06:04)
[2017-06-05 06:56] VITALS: TEMP 98.2
[2017-06-05] MEDS ORDERED: INSULIN DETEMIR 100 UNITS/ML MDV SQ SCH ×2 (07:00→22:00)
--- NOTE | 2017-06-05 08:57 | PN ---
Teaching Attending Note Name of Resident: Krishna Acosta ATTENDING PHYSICIAN STATEMENT I saw and evaluated the patient. I reviewed the resident's note and discussed the case with the resident. I agree with the resident's findings and plan as documented. SUBJECTIVE: Patient seen and examined, sleeping comfortably, no complaints. OBJECTIVE: Vital Signs Period Temp Pulse Resp BP Sys/Ames Pulse Ox Last 24 Hr 98.2 F-99.0 F 81-106 18-20 133-188/66-111 98 Intake & Output 06/02/17 06/03/17 06/04/17 06/05/17 23:59 23:59 23:59 23:59 Intake Total 320 680 Balance 320 680 Weight 165 lb 5.547 oz General:lying in bed in no acute distress Abdomen: soft, NT, ND, positive bowel sounds Extremities: unchanged exam from yesterday chest: CTAB, no rales or wheezing Home Medication List Medication Instructions Recorded Confirmed Type Losartan Potassium [Cozaar -] 100 mg PO DAILY 12/21/16 06/03/17 History Hydrocodone/Acetaminophen [Vicodin 1 tab PO Q6H PRN 06/03/17 06/03/17 History Hp 10-300 mg Tablet] Insulin Sliding Scale [Novolog 0 vial SQ ACHS 06/03/17 06/03/17 History Vial Sliding Scale -] Nifedipine ER [Procardia XL -] 30 mg PO DAILY 06/03/17 06/03/17 History Hydralazine HCl 75 mg PO TID 06/04/17 06/04/17 History Active Medications Generic Name Dose Route Start Last Admin Trade Name Freq PRN Reason Stop Dose Admin Acetaminophen 325 mg 06/04/17 23:29 06/05/17 06:08 Tylenol - PO 325 mg Q6H PRN Administration PAIN LEVEL 6-10 Apixaban 2.5 mg 06/05/17 10:00 Eliquis - PO BID ROSA MARIA Bacitracin 1 applic 06/05/17 10:00 Bacitracin - TP DAILY ROSA MARIA Clonidine 0.3 mg 06/05/17 06:00 06/05/17 05:47 Catapres - PO 0.3 mg TID ROSA MARIA Administration Insulin Aspart 1 vial 06/05/17 02:00 06/05/17 05:45 Novolog Vial Sliding Scale - SQ Not Given Q4HPO [facility] Protocol Insulin Detemir 18 units 06/05/17 07:00 03/03/18 06:04 Levemir Vial SQ 18 units AM ROSA MARIA Administration Insulin Detemir 5 units 06/05/17 22:00 Levemir Vial SQ HS [facility] Labetalol HCl 400 mg 06/05/17 06:00 06/05/17 05:46 Normodyne - PO 400 mg TID ROSA MARIA Administration Losartan Potassium 100 mg 06/05/17 10:00 Cozaar - PO DAILY ROSA MARIA Nifedipine 30 mg 06/05/17 10:00 Procardia Xl - PO DAILY ROSA MARIA Oxycodone HCl 5 mg 06/04/17 23:29 06/05/17 06:08 Roxicodone - PO 5 mg Q6H PRN Administration PAIN LEVEL 6-10 Pantoprazole Sodium 40 mg 06/05/17 10:00 Protonix - PO DAILY [facility] Laboratory Results - last 24 hr 06/03/17 06/04/17 06/04/17 08:02 05:55 09:58 POC Glucometer 286.38560 Hemoglobin A1c % 13.6 H Lactic Acid 1.2 06/04/17 06/04/17 06/04/17 13:44 18:16 20:45 POC Glucometer 269.44547 [phone] Hemoglobin A1c % Lactic Acid 06/05/17 06/05/17 01:43 05:43 POC Glucometer 82 93 Hemoglobin A1c % Lactic Acid ASSESSMENT AND PLAN: 26 yof, non compliant, IDDM, ESRD on HD, on 3 L home oxygen, ?PE on Eliquis ( non compliant given concerns for nose bleed), atrial myxoma s/p surgery, myositis, h/o MRSA bacteremia, diabetic foot infections, HTN admitted with DKA/ hypertensive urgency. -DKA, resolved -IDDM -Hypertensive urgency -ESRD on HD -h/o PE on eliquis -atrial myxoma s/p surgery -h/o diabetic foot infections/MRSA bacteremia -h/o myositis Plan: Anion gap closed. Eating diet, on subq insulin. Endocrine input noted. Levemir 17-5 units BID. Patient stressed on home blood glucose checks and compliance, currently not compliant with Blood sugar checks. resumed on HD, another session today as discussed with Dr. Vo, received vancomycin with HD yesterday. BP better after resuming home anti-hypertensives. Eliquis resumed, patient non compliant given concerns for nose bleed, compliance stressed. Defer diabetic foot management to Dr. Dubon and ID outpatient. Medical clinic appointment if patient willing. dc held yesterday after HD as patient not comfortable later in the night. Ddc home today on home regimen and continued counseling on compliance and close follow up needs. Plan discussed with patient in detail, all questions answered.
[2017-06-05] MEDS: APIXABAN 2.5 MG TABLET PO SCH ×2 (08:58→11:58)
[2017-06-05] MEDS: NIFEdipine E.R. 30 MG TABLET (FP) PO SCH ×2 (08:58→11:58)
[2017-06-05] MEDS: PANTOPRAZOLE 40 MG TABLET (FP) PO SCH ×2 (08:58→11:59)
[2017-06-05] MEDS: LOSARTAN POTASSIUM 25 MG TABLET PO SCH ×2 (08:58→11:56)
[2017-06-05] MEDS ORDERED: MUPIROCIN 2% TOPICAL OINTMENT FOR DECOLONIZATION NS SCH (10:00)
[2017-06-05] MEDS ORDERED: BACITRACIN 15 GM TUBE TOPICAL OINTMENT TP SCH (10:00)
[2017-06-05 12:08] VITALS: BP 156/94; PULSE 76
[2017-06-05] MEDS ORDERED: CHLORHEXIDINE GLUCONATE 4% CLEANSER FOR DECOLONIZATION TP SCH (22:00)
== END 2017-06-05 13:53 | disposition home or self-care (01) | DRG 637 ==
LOC: JER 06:27 → JERBED 11:11 → JICU 12:15 → J8W 06-04 23:54
PROVIDERS: ADMIT Internal Medicine; ATTEND Hospitalist
PROC: 5A1D70Z Performance of Urinary Filtration, Intermittent, Less than 6 Hours Per Day (ICD-10-PCS; principal; 2017-06-03)
PROC: 5A1D70Z Performance of Urinary Filtration, Intermittent, Less than 6 Hours Per Day (ICD-10-PCS; 2017-06-03)
DX: E10.10 Type 1 diabetes mellitus with ketoacidosis without coma (principal); N18.6 End stage renal disease; I12.0 Hypertensive chronic kidney disease with stage 5 chronic kidney disease or end stage renal disease; E87.1 Hypo-osmolality and hyponatremia; E10.22 Type 1 diabetes mellitus with diabetic chronic kidney disease; Z99.2 Dependence on renal dialysis; Z86.711 Personal history of pulmonary embolism; Z79.4 Long term (current) use of insulin; Z86.718 Personal history of other venous thrombosis and embolism; I16.0 Hypertensive urgency; D63.1 Anemia in chronic kidney disease; Z91.14 Patient's other noncompliance with medication regimen; G89.29 Other chronic pain; E10.621 Type 1 diabetes mellitus with foot ulcer; Z99.81 Dependence on supplemental oxygen; I27.20 Pulmonary hypertension, unspecified; L97.519 Non-pressure chronic ulcer of other part of right foot with unspecified severity; E10.21 Type 1 diabetes mellitus with diabetic nephropathy
CPT/HCPCS: 36415; 36600; 71045-TC-FY; 80048; 80053; 82009; 82550; 82803; 82962; 83036; 83605; 83735; 83930; 84100; 84484; 84703; 85025; 85610; 85730; 86850; 86900; 86901; 87040; 87070; 87077; 87186; 87205; 93005; 93010; 93970-TC; 99285-25; J0735; J0885

== ENCOUNTER 2017-06-18 14:56 | Inpatient (IN) | payer OTHER ==
--- NOTE | 2017-06-18 14:58 | PDOC ---
Rapid Medical Evaluation Time Seen by Provider: 06/18/17 14:58 Medical Evaluation: Allergies Allergy/AdvReac Type Severity Reaction Status Date / Time No Known Drug Allergies Allergy Verified 04/12/17 15:14 06/18/17 14:58 I have performed a brief in-person evaluation of this patient. The patient presents with a chief complaint of: SOB w/ CP x days. Also c/o ? infection to R foot wound. H/o type 1 DM, HTN, ESRD on HD (M/W/F) via LUE fistula, missed HD today, oxygen dependent (3L), DKA, PE on eliquis, atrial myxoma s/p surgery, myositis, h/o MRSA bacteremia, diabetic foot infections, osteo, completed course of abx 5 days ago for R foot infection Pertinent physical exam findings:Hypertensive and appears mildly lethargic w/ clear chest/lungs I have ordered the following:ekg/cxr/labs/xr foot The patient will proceed to the ED for further evaluation.
[2017-06-18 15:59] LABS: BASO % 0.8 % (0-2.0); EOS % 1.5 % (0-4.5); HEMATOCRIT 29.8 % (32.4-45.2); HEMOGLOBIN 9.8 GM/dL (10.7-15.3); LYMPH % 8.1 % (8-40); MCH 28.1 pg (25.7-33.7); MEAN CELL VOLUME 85.4 fl (80-96); MEAN PLT VOLUME 9.5 fl (7.5-11.1); MONO % 10.2 % (3.8-10.2); NEUT % 79.4 % (42.8-82.8); PLATELET COUNT 280 K/MM3 (134-434); RBC 3.49 M/mm3 (3.60-5.2); RDW 18.2 % (11.6-15.6); WHITE BLOOD COUNT 6.3 K/mm3 (4.0-10.0)
[2017-06-18] MEDS ORDERED: morphine CARPU-JECT 4 MG/1 ML DISP.SYRIN IVPUSH ONE (16:04)
--- NOTE | 2017-06-18 16:25 | PDOC ---
History of Present Illness - General History Source: Patient, Old Records Exam Limitations: No Limitations - History of Present Illness Initial Comments: 06/18/17 16:25 The patient is a 26 year old female, with a significant past medical history of HTN, DM, ESRD (dialysis on Wed, Wed, Wednesday), pulmonary embolism, and on O2, who presents to the emergency department with SOB. The patient reports missing her HD earlier today. The patient also arrives with complaints of R foot infected wound. Patient has history of MRSA bacteremia, diabetic foot infections, osteo, and has completed course of abx 5 days ago for R foot infection She denies recent fevers, chills, headache or dizziness. She denies recent nausea, vomit, diarrhea or constipation. She denies recent dysuria, frequency, urgency or hematuria. She denies recent chest pain. Allergies: NKA Past surgical history: None reported. Social history: Nonsmoker. Denies EtOH use and recreational drug use. Primary Care Physician: Dr.Tina Alvarado Insights Analyst: Dr.Jackson Vo <Quentin Mann - Last Filed: 06/18/17 16:25> - General History Source: Patient, Old Records Exam Limitations: No Limitations <Jose Rhodes - Last Filed: 06/18/17 17:58> - General Chief Complaint: Shortness of Breath Stated Complaint: SOB Time Seen by Provider: 06/18/17 14:58 Past History <Quentin Mann - Last Filed: 06/18/17 16:25> - Past Medical History Anemia: Yes Asthma: No Cancer: No Cardiac Disorders: No CVA: No COPD: No CHF: No DVT: No Dementia: No Diabetes: Yes (15 yrs Insulin dependent) Dialysis: Yes (M/W/F) Disorders: No HTN: Yes Hypercholesterolemia: No Kidney Stones: (ESRD, Dialysis Wed, , , Left arm Fistula) Liver Disease: No Seizures: Yes (Several yrs ago, no medication) Thyroid Disease: No - Surgical History Abdominal Surgery: No Appendectomy: No Cardiac Surgery: Yes (myxoma removed 2013) Cholecystectomy: Yes Lung Surgery: No Neurologic Surgery: No Orthopedic Surgery: Yes (foot sx x2) - Immunization History Immunization Up to Date: Yes - Suicide/Smoking/Psychosocial Hx Smoking Status: No Smoking History: Never smoked Have you smoked in the past 12 months: No Number of Cigarettes Smoked Daily: 10 Hx Alcohol Use: No Drug/Substance Use Hx: No Substance Use Type: None Hx Substance Use Treatment: No <Jose Rhodes - Last Filed: 06/18/17 17:58> - Past Medical History Allergies/Adverse Reactions: Allergies Allergy/AdvReac Type Severity Reaction Status Date / Time No Known Drug Allergies Allergy Verified 06/18/17 15:03 Home Medications: Ambulatory Orders Sevelamer Carbonate [Renvela -] 1,600 mg PO TIDCM #60 tab 07/14/16 Losartan Potassium [Cozaar -] 100 mg PO DAILY 12/21/16 Labetalol HCl [Normodyne -] 400 mg PO TID #60 tablet 12/26/16 cloNIDine HCL [Catapres -] 0.3 mg PO TID tablet 12/26/16 Hydrocodone/Acetaminophen [Vicodin Hp 10-300 mg Tablet] 1 tab PO Q6H PRN Insulin Sliding Scale [Novolog Vial Sliding Scale -] 0 vial SQ ACHS 06/03/17 Nifedipine ER [Procardia XL -] 30 mg PO DAILY 06/03/17 Apixaban [Eliquis -] 5 mg PO BID tablet 06/04/17 Hydralazine HCl 75 mg PO TID 06/04/17 Insulin (Levemir) [Levemir Vial] 5 units SQ HS ml 06/04/17 Insulin (Levemir) [Levemir Vial] 17 units SQ AM #0 ml 06/04/17 Review of Systems - Review of Systems Able to Perform ROS?: Yes Comments:: 06/18/17 16:26 GENERAL/CONSTITUTIONAL: No fever or chills. No weakness. HEAD, EYES, EARS, NOSE AND THROAT: No change in vision. No ear pain or discharge. No sore throat. CARDIOVASCULAR: No chest pain +shortness of breath. RESPIRATORY: No cough, wheezing, or hemoptysis. GASTROINTESTINAL: No nausea, vomiting, diarrhea or constipation. GENITOURINARY: No dysuria, frequency, or change in urination. MUSCULOSKELETAL: +right foot infection. No joint or muscle swelling or pain. No neck or back pain. SKIN: No rash NEUROLOGIC: No headache, vertigo, loss of consciousness, or change in strength/ sensation. ENDOCRINE: No increased thirst. No abnormal weight change. HEMATOLOGIC/LYMPHATIC: No anemia, easy bleeding, or history of blood clots. ALLERGIC/IMMUNOLOGIC: No hives or skin allergy. <Quentin Mann - Last Filed: 06/18/17 16:25> *Physical Exam - Vital Signs Last Vital Signs Temp Pulse Resp BP Pulse Ox 97.6 F 79 24 167/105 06/18/17 14:58 06/18/17 14:58 06/18/17 14:58 06/18/17 14:58 - Physical Exam Comments: 06/18/17 16:27 GENERAL: Awake, alert, and fully oriented, in no acute distress HEAD: No signs of trauma EYES: PERRLA, EOMI, sclera anicteric, conjunctiva clear ENT: Auricles normal inspection, hearing grossly normal, nares patent, oropharynx clear without exudates. Moist mucosa NECK: Normal ROM, supple, no lymphadenopathy, JVD, or masses LUNGS: Diminished breath sounds at the bases. HEART: Regular rate and rhythm, normal S1 and S2, no murmurs, rubs or gallops ABDOMEN: Soft, nontender, normoactive bowel sounds. No guarding, no rebound. No masses EXTREMITIES: 3+ pitting edema Normal range of motion. Right sole with draining wound peruleuent NEUROLOGICAL: Cranial nerves II through XII grossly intact. Normal speech, normal gait SKIN: Warm, Dry, normal turgor, no rashes or lesions noted. <Quentin Mann - Last Filed: 06/18/17 16:25> - Vital Signs Last Vital Signs Temp Pulse Resp BP Pulse Ox 97.6 F 79 24 167/105 06/18/17 14:58 06/18/17 14:58 06/18/17 14:58 06/18/17 14:58 <Jose Rhodes - Last Filed: 06/18/17 17:58> Heart Score/ECG Review #1 ECG reviewed & interpreted by me at: 15:15 06/18/17 17:46 NSR 78, T wave flat III, normal axis, normal intervals, QTC 490 msec <Jose Rhodes - Last Filed: 06/18/17 17:58> ED Treatment Course - LABORATORY CBC & Chemistry Diagram: 06/18/17 15:50 06/18/17 15:50 - ADDITIONAL ORDERS Additional order review: Laboratory Results 06/18/17 15:50 C-Reactive Protein 1.4 H 06/18/17 15:50 RBC 3.49 L MCV 85.4 MCHC 33.0 RDW 18.2 H MPV 9.5 D Neutrophils % 79.4 D Lymphocytes % 8.1 D Monocytes % 10.2 Eosinophils % 1.5 Basophils % 0.8 <Quentin Mann - Last Filed: 06/18/17 16:25> - LABORATORY CBC & Chemistry Diagram: 06/18/17 15:50 06/18/17 15:50 - ADDITIONAL ORDERS Additional order review: 06/18/17 15:50 RBC 3.49 L MCV 85.4 MCHC 33.0 RDW 18.2 H MPV 9.5 D Neutrophils % 79.4 D Lymphocytes % 8.1 D Monocytes % 10.2 Eosinophils % 1.5 Basophils % 0.8 <Jose Rhodes - Last Filed: 06/18/17 17:58> Medical Decision Making - Medical Decision Making 06/18/17 16:18 A portion of this note was documented by scribe services under my direction. I have reviewed the details of the note, within reason, and agree with the documentation with the following case summary and management plan written by me. Patient treated in the ED. Nursing notes are reviewed and incorporated into the medical decision-making. Vital signs reviewed. Peripheral IV access obtained by the nurse, laboratory studies are drawn and sent, reviewed and interpreted by myself. Vital Signs Temp Pulse Resp BP Pulse Ox 97.6 F 79 24 167/105 06/18/17 14:58 06/18/17 14:58 06/18/17 14:58 06/18/17 14:58 26-year-old female with history of type 1 diabetes, hypertension, atrial myxoma , and seasonal disease on dialysis, last dialysis 2 days ago, right foot infections, multiple multiple medical problems presents with 2 complaints. Patient has a right foot wound infection that has recently opened up and is draining purulence. Patient has been receiving vancomycin via dialysis but states that it worsening. Denies fevers or chills. Patient also noticed recently in the last 2 days with increasing short of breath with increasing lower extremity edema. She suspects that she has fluid overload. Reports some chest discomfort but denies bret chest pain. I suspect patient is fluid overloaded. I had contact patient's efficiency analyst, Dr. Vo who will set the patient up for dialysis today. We'll also send troponin and labs. Chest x-ray. Patient's right foot appears to have draining wound. Wound culture. Should likely consider additional IV antibiotics and admit the patient to the hospital. 06/18/17 17:56 CBC, BMP 06/18/17 15:50 06/18/17 15:50 CMP Sodium 130 mmol/L (136-145) L 06/18/17 15:50 Potassium 4.5 mmol/L (3.5-5.1) 06/18/17 15:50 Chloride 93 mmol/L (98-107) L 06/18/17 15:50 Carbon Dioxide 19 mmol/L (21-32) L 06/18/17 15:50 Anion Gap 18 (8-16) H 06/18/17 15:50 BUN 54 mg/dL (7-18) H 06/18/17 15:50 Creatinine 4.9 mg/dL (0.55-1.02) H 06/18/17 15:50 Creat Clearance w eGFR 10.63 (>60) 06/18/17 15:50 Random Glucose 252 mg/dL (74-106) H 06/18/17 15:50 Calcium 8.0 mg/dL (8.5-10.1) L 06/18/17 15:50 Phosphorus 5.0 mg/dL (2.5-4.9) H 06/18/17 15:46 Magnesium 2.0 mg/dL (1.8-2.4) 06/18/17 15:46 Total Bilirubin 0.8 mg/dL (0.2-1.0) 06/18/17 15:50 AST 137 U/L (15-37) H 06/18/17 15:50 ALT 68 U/L (12-78) 06/18/17 15:50 Alkaline Phosphatase 1751 U/L (45-117) H 06/18/17 15:50 Creatine Kinase 72 IU/L (26-192) 06/18/17 15:50 Troponin I < 0.02 ng/ml (0.00-0.05) 06/18/17 15:50 C-Reactive Protein 1.4 MG/DL (0.00-0.3) H 06/18/17 15:50 B-Natriuretic Peptide 36446.32 pg/ml (5-125) H 06/18/17 15:46 Total Protein 8.5 g/dl (6.4-8.2) H 06/18/17 15:50 Albumin 3.2 g/dl (3.4-5.0) L 06/18/17 15:50 Serum , Qual Negative 06/18/17 15:50 Acetone negative. Pt given zosyn. Pt already received vancomycin from dialysis. Pt awaiting dialysis. Case discussed with [facility] hospitalist. Pt admitted to telemetry admission. Case discussed in detail with admitting physician including history, physical exam and ancillary studies. Admitting physician has assumed care for the patient, will follow all pending diagnostics and will complete the evaluation and treatment. <Jose Rhodes - Last Filed: 06/18/17 17:58> *DC/Admit/Observation/Transfer - Attestations Scribe Attestion: 06/18/17 16:26 Documentation prepared by Quentin Mann, acting as medical records secretary for Jose Rhodes MD. <Quentin Mann - Last Filed: 06/18/17 16:25> - Discharge Dispostion Admit: Yes <Jose Rhodes - Last Filed: 06/18/17 17:58> Diagnosis at time of Disposition: Foot infection Fluid overload Qualifiers: Hypervolemia type: unspecified Qualified Code(s): E87.70 - Fluid overload, unspecified - Discharge Dispostion Condition at time of disposition: Stable
[2017-06-18 16:26] LABS: ALBUMIN 3.2 g/dl (3.4-5.0); ANION GAP 18 (8-16); BILIRUBIN,TOTAL 0.8 mg/dL (0.2-1.0); BLOOD UREA NITROGEN 54 mg/dL (7-18); CHLORIDE 93 mmol/L (98-107); CO2 19 mmol/L (21-32); CREATININE 4.9 mg/dL (0.55-1.02); GLUCOSE,RANDOM 252 mg/dL (74-106); POTASSIUM 4.5 mmol/L (3.5-5.1); SGOT/AST 137 U/L (15-37); SGPT/ALT 68 U/L (12-78); SODIUM 130 mmol/L (136-145); TOT PROT 8.5 g/dl (6.4-8.2)
[2017-06-18 16:46] LABS: ALK PHOS 1751 U/L (45-117)
[2017-06-18] MEDS ORDERED: PIPERACIL/TAZOB 3.375 GM 3.375 GM/50 ML PREMIX IVPB ONE (16:59)
[2017-06-18] MEDS ORDERED: PIPERACILLIN/TAZOB 3.375 GM 3.375 GM in DEXTROSE 5%-WATER - 50 ML IVPB ONE (17:15)
[2017-06-18] MEDS ORDERED: morphine SULFATE 4 MG/ML VIAL ONE (17:25)
[2017-06-18] MEDS ORDERED: PIPERACILLIN/TAZOB 3.375 GM 3.375 GM/50 ML BAG IVPB ONE (17:26)
--- NOTE | 2017-06-18 17:52 | HP ---
CHIEF COMPLAINT: "i dont feel well" Primary Care Physician: Dr.Tina Alvarado Engineer Internship: Dr.Jackson Vo HISTORY OF PRESENT ILLNESS: This is a 26 yo F well known to me, with PMH of HTN, IDDM1, ESRD (HD MWF), PE, MRSA bacteremia, O2 dependent 3L, who presents due to SOB. She was last dcd from [facility] 06/05/17 after a short hospitalization for hyperglucemia and R plantar foot ulcer, whihc was debrided. She has since been receiving Vanco with HD outpatient and reports ucler improving until yesterday, when it started oozing more yellow fluid. She has not seen podiatry for 2 weeks. She also reports UTI symptoms x 5 days (sore throat, malaise) and increased LE edema as well as mild sob today w/o cough. She also complained of transient mid sternal chest pressure that has resolved. She states her glucose has been higher than usual for the past few days (upper 300's). In ED patient is satting 99% on home 3 L. She denies f/c, h/a, diaphoresis, loss of appetite, n/v, abd pain, diarrhea, dysuria. Has not seen opthalmologist in over a year. Allergies: NKA Past surgical history: None reported. Social history: Nonsmoker. Denies EtOH use and recreational drug use. ER course was notable for: (1)labs (2)ekg, foot x ray, cxr (3) Recent Travel: denies PAST MEDICAL HISTORY: as above PAST SURGICAL HISTORY: none Social History: lives with mother uses walker, oxygen 3L and has transportation for dialysis 3 x/ week. Smoking: denies Alcohol:denies Drugs: denies Family History: Mother HTN Allergies No Known Drug Allergies Allergy (Verified 06/18/17 15:03) HOME MEDICATIONS: Home Medications Medication Instructions Recorded Sevelamer Carbonate [Renvela -] 1,600 mg PO TIDCM #60 tab 07/14/16 Losartan Potassium [Cozaar -] 100 mg PO DAILY 12/21/16 Labetalol HCl [Normodyne -] 400 mg PO TID #60 tablet 12/26/16 cloNIDine HCL [Catapres -] 0.3 mg PO TID tablet 12/26/16 Hydrocodone/Acetaminophen [Vicodin 1 tab PO Q6H PRN 06/03/17 Hp 10-300 mg Tablet] Insulin Sliding Scale [Novolog 0 vial SQ ACHS 06/03/17 Vial Sliding Scale -] Nifedipine ER [Procardia XL -] 30 mg PO DAILY 06/03/17 Apixaban [Eliquis -] 5 mg PO BID tablet 06/04/17 Hydralazine HCl 75 mg PO TID 06/04/17 Insulin (Levemir) [Levemir Vial] 5 units SQ HS ml 06/04/17 Insulin (Levemir) [Levemir Vial] 17 units SQ AM #0 ml 06/04/17 REVIEW OF SYSTEMS CONSTITUTIONAL: Absent: fever, chills, diaphoresis, loss of appetite, weight change HEENT: Absent: difficulty swallowing, visual changes CARDIOVASCULAR: Absent: chest pain, syncope, palpitations, irregular heart rate, lightheadedness , peripheral edema RESPIRATORY: Absent: cough, shortness of breath, dyspnea with exertion, orthopnea, wheezing, stridor, hemoptysis GASTROINTESTINAL: Absent: abdominal pain, abdominal distension, nausea, vomiting, diarrhea, constipation, melena, hematochezia GENITOURINARY: Absent: dysuria, frequency, urgency, hesitancy, hematuria, flank pain, genital pain MUSCULOSKELETAL: Absent: myalgia, arthralgia, joint swelling, back pain, neck pain SKIN: Absent: rash, itching, pallor HEMATOLOGIC/IMMUNOLOGIC: Absent: easy bleeding, easy bruising, lymphadenopathy, frequent infections ENDOCRINE: Absent: unexplained weight gain, unexplained weight loss, heat intolerance, cold intolerance NEUROLOGIC: Absent: headache, focal weakness or paresthesias, dizziness, unsteady gait, seizure, mental status changes, bladder or bowel incontinence PSYCHIATRIC: Absent: anxiety, depression, suicidal or homicidal ideation, hallucinations. PHYSICAL EXAMINATION Vital Signs - 24 hr 06/18/17 06/18/17 14:58 15:42 Temperature 97.6 F Pulse Rate 79 Respiratory 24 Rate Blood Pressure 167/105 O2 Sat by Pulse 99 Oximetry (%) GENERAL: Awake, alert, and fully oriented, in no acute distress. HEAD: Normal with no signs of trauma. EYES: Pupils equal, round and reactive to light, extraocular movements intact, sclera anicteric, conjunctiva clear. No lid lag. EARS, NOSE, THROAT: Moist mucous membranes. NECK: supple + JVD at 30 degree recline LUNGS: Breath sounds equal, clear to auscultation bilaterally. HEART: Regular rate and rhythm, normal S1 and S2 systolic murmur at L upper sternal boarder, split s2 ABDOMEN: Soft, nontender, not distended, edematous, normoactive bowel sounds, no guarding, no rebound, no masses. MUSCULOSKELETAL: No CVA tenderness. UPPER EXTREMITIES: 2+ pulses, warm, well-perfused. No cyanosis. No clubbing. No peripheral edema. LOWER EXTREMITIES: pulses not [palpable, 3+ edema, warm, well-perfused. No calf tenderness. R foot plantar ulcer with a lot of callused skin, but no purulent discharge or odor, leaking serous fluid NEUROLOGICAL: Cranial nerves II-XII intact. Normal speech. sensation reduced in b/l feet, foot flexion/extension strength 5/5 b/l, knee flexion strength 4/5 b/l PSYCHIATRIC: Cooperative. Good eye contact. Appropriate mood and affect. SKIN: Warm, dry, lesion as above Laboratory Results - last 24 hr 06/18/17 06/18/17 06/18/17 15:46 15:46 15:46 WBC RBC Hgb Hct MCV MCH MCHC RDW Plt Count MPV Neutrophils % Lymphocytes % Monocytes % Eosinophils % Basophils % ESR Sodium Potassium Chloride Carbon Dioxide Anion Gap BUN Creatinine Creat Clearance w eGFR Random Glucose Calcium Phosphorus 5.0 H Magnesium 2.0 Total Bilirubin AST ALT Alkaline Phosphatase Creatine Kinase Troponin I C-Reactive Protein B-Natriuretic Peptide 25581.32 H Total Protein Albumin Serum , Qual Acetone, Qual Negative L 06/18/17 06/18/17 06/18/17 15:50 15:50 15:50 WBC 6.3 RBC 3.49 L Hgb 9.8 L D Hct 29.8 L D MCV 85.4 MCH 28.1 MCHC 33.0 RDW 18.2 H Plt Count 280 D MPV 9.5 D Neutrophils % 79.4 D Lymphocytes % 8.1 D Monocytes % 10.2 Eosinophils % 1.5 Basophils % 0.8 ESR Sodium 130 L Potassium 4.5 Chloride 93 L Carbon Dioxide 19 L Anion Gap 18 H BUN 54 H Creatinine 4.9 H Creat Clearance w eGFR 10.63 Random Glucose 252 H Calcium 8.0 L Phosphorus Magnesium Total Bilirubin 0.8 AST 137 H ALT 68 Alkaline Phosphatase 1751 H Creatine Kinase 72 Troponin I < 0.02 C-Reactive Protein B-Natriuretic Peptide Total Protein 8.5 H Albumin 3.2 L Serum , Qual Negative Acetone, Qual 06/18/17 06/18/17 15:50 15:50 WBC RBC Hgb Hct MCV MCH MCHC RDW Plt Count MPV Neutrophils % Lymphocytes % Monocytes % Eosinophils % Basophils % ESR 58 H Sodium Potassium Chloride Carbon Dioxide Anion Gap BUN Creatinine Creat Clearance w eGFR Random Glucose Calcium Phosphorus Magnesium Total Bilirubin AST ALT Alkaline Phosphatase Creatine Kinase Troponin I C-Reactive Protein 1.4 H B-Natriuretic Peptide Total Protein Albumin Serum , Qual Acetone, Qual ASSESSMENT/PLAN: This is a 26 yo F well known to me, with PMH of HTN, IDDM1, ESRD (HD MWF), PE, MRSA bacteremia, O2 dependent 3L, who presents due to SOB. IDDM1, mild volume overload -Dr Vo on case, HD today -K stable R foot plantar diabetic ulcer -does not appear severely infected, discarge may just be edema fluid -has received zosyn (needs q 12 hr for ESRD), will give a dose on Vanco with HD -cultures collected -podiatry consulted, needs callus debridement Elevated anion gap -gap 19, gluc 250 -Lactic acid 2.5 -due to history of multiple DKA admissions, give novolog 6, bgm q2 hr for now, repeat bmp at midnight -continue home basal Levemir, ISS -no IVF PPX: continue home [facility] Dispo: adm tele Problem List - Problem (1) Fluid overload Code(s): E87.70 - FLUID OVERLOAD, UNSPECIFIED Qualifiers: Hypervolemia type: unspecified Qualified Code(s): E87.70 - Fluid overload, unspecified (2) Foot infection Code(s): L08.9 - LOCAL INFECTION OF THE SKIN AND SUBCUTANEOUS TISSUE, UNSP (3) Anemia Code(s): D64.9 - ANEMIA, UNSPECIFIED Qualifiers: Folate deficiency anemia type: dietary (4) Chest pain Code(s): R07.9 - CHEST PAIN, UNSPECIFIED Qualifiers: Chest pain type: unspecified Qualified Code(s): R07.9 - Chest pain, unspecified (5) DKA, type 1 Code(s): E10.10 - TYPE 1 DIABETES MELLITUS WITH KETOACIDOSIS WITHOUT COMA (6) Diabetes mellitus, insulin dependent (IDDM), uncontrolled Code(s): E10.65 - TYPE 1 DIABETES MELLITUS WITH HYPERGLYCEMIA (7) Diabetic foot infection Code(s): E11.69 - TYPE 2 DIABETES MELLITUS WITH OTHER SPECIFIED COMPLICATION; L08.9 - LOCAL INFECTION OF THE SKIN AND SUBCUTANEOUS TISSUE, UNSP (8) History of pulmonary embolus (PE) Code(s): Z86.711 - PERSONAL HISTORY OF PULMONARY EMBOLISM (9) Hyperglycemia Code(s): R73.9 - HYPERGLYCEMIA, UNSPECIFIED (10) Hyponatremia Code(s): E87.1 - HYPO-OSMOLALITY AND HYPONATREMIA (11) Open wound of foot Code(s): S91.309A - UNSPECIFIED OPEN WOUND, UNSPECIFIED FOOT, INITIAL ENCOUNTER (12) Weakness Code(s): R53.1 - WEAKNESS (13) Dialysis patient Code(s): Z99.2 - DEPENDENCE ON RENAL DIALYSIS (14) ESRD (end stage renal disease) on dialysis Code(s): N18.6 - END STAGE RENAL DISEASE; Z99.2 - DEPENDENCE ON RENAL DIALYSIS Visit type - Emergency Visit Emergency Visit: Yes ED Registration Date: 06/18/17 Care time: The patient presented to the Emergency Department on the above date and was hospitalized for further evaluation of their emergent condition. - New Patient This patient is new to me today: No - Critical Care Critical Care patient: No
[2017-06-18] MEDS ORDERED: SODIUM CHLORIDE 250 ML IV PRN (18:32)
[2017-06-18] MEDS ORDERED: INSULIN SLIDING SCALE (NOVOLOG) 1 VIAL SQ SCH ×2 (19:00→22:00)
[2017-06-18] MEDS ORDERED: INSULIN (NOVOLOG) ASPART 100 UNITS/ML 10ML VIAL SQ ONE (19:15)
--- NOTE | 2017-06-18 19:30 | HP ---
CHIEF COMPLAINT: Shortness of breath PCP: HISTORY OF PRESENT ILLNESS: The patient is a 26 year old female, with a significant past medical history of HTN, DM, ESRD (dialysis on Wed, Wed, Wednesday), pulmonary embolism, and on O2, who presents to the emergency department c/o SOB. The patient states that she was on her way to HD, but was feeling so short of breath that she decided to come to the ER instead. Her shortness of breath was also associated with chest tightness. Patient had a recent admission (d/c 06/05/17) for infected diabetic foot ulcer and recently completed an outpatient course of ABX. Patient follows with Dr. Dubon for her wound care, but has been unable to see him for the last 2 months. Patient denies fevers, chills, nausea, vomiting, dysuria or chest pain. ER course was notable for: (1) glucose 252, anion gap 18 (2) LA 2.4 (3) Recent Travel: none PAST MEDICAL HISTORY: see HPI PAST SURGICAL HISTORY: none Social History: Smoking: denies Alcohol: denies Drugs: denies Family History: Non-contributory Allergies No Known Drug Allergies Allergy (Verified 06/18/17 15:03) HOME MEDICATIONS: Home Medications Medication Instructions Recorded Sevelamer Carbonate [Renvela -] 1,600 mg PO TIDCM #60 tab 07/14/16 Losartan Potassium [Cozaar -] 100 mg PO DAILY 12/21/16 Labetalol HCl [Normodyne -] 400 mg PO TID #60 tablet 12/26/16 cloNIDine HCL [Catapres -] 0.3 mg PO TID tablet 12/26/16 Hydrocodone/Acetaminophen [Vicodin 1 tab PO Q6H PRN 06/03/17 Hp 10-300 mg Tablet] Insulin Sliding Scale [Novolog 0 vial SQ ACHS 06/03/17 Vial Sliding Scale -] Nifedipine ER [Procardia XL -] 30 mg PO DAILY 06/03/17 Apixaban [Eliquis -] 5 mg PO BID tablet 06/04/17 Hydralazine HCl 75 mg PO TID 06/04/17 Insulin (Levemir) [Levemir Vial] 5 units SQ HS ml 06/04/17 Insulin (Levemir) [Levemir Vial] 17 units SQ AM #0 ml 06/04/17 REVIEW OF SYSTEMS CONSTITUTIONAL: Absent: fever, chills, diaphoresis, generalized weakness, malaise, loss of appetite, weight change HEENT: Absent: rhinorrhea, nasal congestion, throat pain, throat swelling, difficulty swallowing, mouth swelling, ear pain, eye pain, visual changes CARDIOVASCULAR: Absent: chest pain, syncope, palpitations, irregular heart rate, lightheadedness RESPIRATORY: Absent: cough, orthopnea, wheezing, stridor, hemoptysis GASTROINTESTINAL: Absent: abdominal pain, abdominal distension, nausea, vomiting, diarrhea, constipation, melena, hematochezia GENITOURINARY: Absent: dysuria, frequency, urgency, hesitancy, hematuria, flank pain, genital pain MUSCULOSKELETAL: Absent: joint swelling, back pain, neck pain SKIN: Absent: rash, itching, pallor HEMATOLOGIC/IMMUNOLOGIC: Absent: easy bleeding, easy bruising, lymphadenopathy, frequent infections ENDOCRINE: Absent: unexplained weight gain, unexplained weight loss, heat intolerance, cold intolerance NEUROLOGIC: Absent: headache, focal weakness or paresthesias, dizziness, unsteady gait, seizure, mental status changes, bladder or bowel incontinence PSYCHIATRIC: Absent: anxiety, depression, suicidal or homicidal ideation, hallucinations. PHYSICAL EXAMINATION Vital Signs - 24 hr 06/18/17 06/18/17 14:58 15:42 Temperature 97.6 F Pulse Rate 79 Respiratory 24 Rate Blood Pressure 167/105 O2 Sat by Pulse 99 Oximetry (%) GENERAL: Awake, alert, and fully oriented, in no acute distress. HEAD: Normal with no signs of trauma. EYES: Pupils equal, round and reactive to light, extraocular movements intact, sclera anicteric, conjunctiva clear. No lid lag. NECK: Normal range of motion, supple without lymphadenopathy or masses. JVD seen. LUNGS: Breath sounds equal, clear to auscultation bilaterally. No wheezes, and no crackles. No accessory muscle use. HEART: Regular rate and rhythm, normal S1 and S2 without murmur, rub or gallop. ABDOMEN: Soft, nontender, not distended, normoactive bowel sounds, no guarding, no rebound, no masses. No hepatomegaly or splenomegaly. LOWER EXTREMITIES: 2+ pulses, warm, well-perfused. No calf tenderness. 2+ peripheral edema. There is an open ulcer on the plantar surface of the right foot. The wound does not express pus, but is draining serous fluid. NEUROLOGICAL: Cranial nerves II-X intact. Normal speech. SKIN: Warm, dry, normal turgor, no rashes or lesions noted, normal capillary refill. Laboratory Results - last 24 hr 06/18/17 06/18/17 06/18/17 15:46 15:46 15:46 WBC RBC Hgb Hct MCV MCH MCHC RDW Plt Count MPV Neutrophils % Lymphocytes % Monocytes % Eosinophils % Basophils % ESR Sodium Potassium Chloride Carbon Dioxide Anion Gap BUN Creatinine Creat Clearance w eGFR Random Glucose Lactic Acid Calcium Phosphorus 5.0 H Magnesium 2.0 Total Bilirubin AST ALT Alkaline Phosphatase Creatine Kinase Troponin I C-Reactive Protein B-Natriuretic Peptide 19619.32 H Total Protein Albumin Serum , Qual Acetone, Qual Negative L 06/18/17 06/18/17 06/18/17 15:50 15:50 15:50 WBC 6.3 RBC 3.49 L Hgb 9.8 L D Hct 29.8 L D MCV 85.4 MCH 28.1 MCHC 33.0 RDW 18.2 H Plt Count 280 D MPV 9.5 D Neutrophils % 79.4 D Lymphocytes % 8.1 D Monocytes % 10.2 Eosinophils % 1.5 Basophils % 0.8 ESR Sodium 130 L Potassium 4.5 Chloride 93 L Carbon Dioxide 19 L Anion Gap 18 H BUN 54 H Creatinine 4.9 H Creat Clearance w eGFR 10.63 Random Glucose 252 H Lactic Acid Calcium 8.0 L Phosphorus Magnesium Total Bilirubin 0.8 AST 137 H ALT 68 Alkaline Phosphatase 1751 H Creatine Kinase 72 Troponin I < 0.02 C-Reactive Protein B-Natriuretic Peptide Total Protein 8.5 H Albumin 3.2 L Serum , Qual Negative Acetone, Qual 06/18/17 06/18/17 06/18/17 15:50 15:50 17:32 WBC RBC Hgb Hct MCV MCH MCHC RDW Plt Count MPV Neutrophils % Lymphocytes % Monocytes % Eosinophils % Basophils % ESR 58 H Sodium Potassium Chloride Carbon Dioxide Anion Gap BUN Creatinine Creat Clearance w eGFR Random Glucose Lactic Acid 2.4 H* Calcium Phosphorus Magnesium Total Bilirubin AST ALT Alkaline Phosphatase Creatine Kinase Troponin I C-Reactive Protein 1.4 H B-Natriuretic Peptide Total Protein Albumin Serum , Qual Acetone, Qual ASSESSMENT/PLAN: This is a 26 yo f w/ with PMH of HTN, DM, ESRD (HD MWF), PE, MRSA bacteremia, O2 dependent 3L, who is admitted due to SOB. #HD patient with fluid overload -Nephrology consulted, will dialyze her this evening -monitor fluid status -cbc, cmp, MAG, phos in AM #Rt diabetic foot ulcer -no signs of infection at this time -Vanco 1g to be given w/ HD -cultures collected -podiatry consulted; will need debridement #Elevated anion gap/ DM -gap 19, gluc 250 -Lactic acid 2.5; will trend -novolog 6u now -c/w home Levemir 5u QHS and 17u QAM -BGM Q2H -ISS Q2H -holding IVF #FEN -no fluids indicated -monitor lytes -diabetic diet #Prophy -on eliquis 5 BID at home #Dispo -admit to med surg Visit type - Emergency Visit Emergency Visit: Yes ED Registration Date: 06/18/17 Care time: The patient presented to the Emergency Department on the above date and was hospitalized for further evaluation of their emergent condition. - New Patient This patient is new to me today: Yes Date on this admission: 06/18/17 - Critical Care Critical Care patient: No Hospitalist Screening - Colonoscopy Questionnaire Colonoscopy Questionnaire: Colonoscopy Questionnaire - Patient: 50 - 75 years old and never had a screening colonoscopy: Unknown History of colon or rectal polyps, or CA: Unknown History of IBD, Crohn's disease or UC: Unknown History of abdominal radiation therapy as a child: Unknown - Relative: 1 with colon or rectal CA, or polyps at age 60 or younger: Unknown Colon or rectal CA diagnosed at age 45 or younger: Unknown Multiple relatives with colon or rectal CA: Unknown - Outcome: Screening Result: Negative Screen
[2017-06-18] MEDS ORDERED: HEPARIN NA (PORCINE) 5,000 UNITS/ML 1ML VIAL SQ SCH (22:00)
[2017-06-18 22:16] LABS: ANION GAP 18 (8-16); BLOOD UREA NITROGEN 40 mg/dL (7-18); CALCIUM 7.7 mg/dL (8.5-10.1); CHLORIDE 94 mmol/L (98-107); CO2 21 mmol/L (21-32); CREATININE 3.9 mg/dL (0.55-1.02); POTASSIUM 3.8 mmol/L (3.5-5.1); SODIUM 133 mmol/L (136-145)
[2017-06-18 22:20] LABS: GLUCOSE,RANDOM 456 mg/dL (74-106)
[2017-06-18] MEDS ORDERED: VANCOMYCIN 1,000 MG in DEXTROSE 5%-WATER - 250 ML IVPB ONE ×2 (22:45→23:15)
[2017-06-19] MEDS ORDERED: hydrALAZINE HCL 25 MG TABLET (FP) ONE (00:06)
[2017-06-19] MEDS ORDERED: INSULIN DETEMIR 100 UNITS/ML MDV SQ ONE (00:06)
[2017-06-19] MEDS ORDERED: ACETAMINOPHEN 325 MG TABLET (FP) PO PRN (00:15)
[2017-06-19] MEDS: cloNIDine HCL 0.1 MG TABLET PO SCH ×4 (00:16→22:48)
[2017-06-19] MEDS: hydrALAZINE HCL 50 MG TABLET (FP) PO SCH ×4 (00:16→22:48)
[2017-06-19] MEDS: APIXABAN 5 MG TABLET PO SCH ×3 (00:16→22:50)
[2017-06-19] MEDS: INSULIN DETEMIR 100 UNITS/ML MDV SQ SCH ×3 (00:17→22:51)
[2017-06-19] MEDS: LABETALOL HCL 200 MG TABLET (FP) PO SCH ×4 (00:17→22:52)
[2017-06-19] MEDS: morphine SULFATE 4 MG/ML VIAL IVPUSH PRN ×4 (01:10→16:27)
[2017-06-19] MEDS ORDERED: INSULIN (NOVOLOG) ASPART 100 UNITS/ML 10ML VIAL SQ ONE (01:10)
[2017-06-19 01:38] VITALS: BMI 25.7
[2017-06-19] MEDS: INSULIN SLIDING SCALE (NOVOLOG) 1 VIAL SQ SCH ×6 (03:00→22:54)
[2017-06-19] MEDS ORDERED: diphenhydrAMINE HCL 25 MG CAPSULE (FP) PO ONE (03:00)
[2017-06-19] MEDS ORDERED: ALBUTEROL SO4 0.083% IH SOL 2.5 MG/3 ML VIAL.NEB. NEB ONE ×2 (03:00→13:45)
[2017-06-19] MEDS ORDERED: SODIUM CHLORIDE 250 ML IV PRN (06:25)
[2017-06-19 07:53] LABS: BASO % 1.3 % (0-2.0); EOS % 2.3 % (0-4.5); HEMATOCRIT 29.5 % (32.4-45.2); HEMOGLOBIN 9.6 GM/dL (10.7-15.3); LYMPH % 12.3 % (8-40); MCH 27.6 pg (25.7-33.7); MCHC 32.4 g/dl (32.0-36.0); MEAN CELL VOLUME 85.1 fl (80-96); MEAN PLT VOLUME 9.9 fl (7.5-11.1); MONO % 15.2 % (3.8-10.2); NEUT % 68.9 % (42.8-82.8); PLATELET COUNT 261 K/MM3 (134-434); RBC 3.47 M/mm3 (3.60-5.2); RDW 18.4 % (11.6-15.6); WHITE BLOOD COUNT 7.6 K/mm3 (4.0-10.0)
[2017-06-19 08:09] LABS: CHLORIDE 93 mmol/L (98-107); POTASSIUM 3.6 mmol/L (3.5-5.1); SODIUM 133 mmol/L (136-145)
[2017-06-19 08:30] LABS: ALBUMIN 3.1 g/dl (3.4-5.0); ANION GAP 19 (8-16); BILIRUBIN,TOTAL 0.9 mg/dL (0.2-1.0); BLOOD UREA NITROGEN 42 mg/dL (7-18); CALCIUM 8.3 mg/dL (8.5-10.1); CO2 21 mmol/L (21-32); CREATININE 4.3 mg/dL (0.55-1.02); GLUCOSE,RANDOM 258 mg/dL (74-106); PHOSPHOROUS 4.2 mg/dL (2.5-4.9); SGOT/AST 89 U/L (15-37); SGPT/ALT 65 U/L (12-78); TOT PROT 8.6 g/dl (6.4-8.2)
[2017-06-19 08:51] LABS: ALK PHOS 1717 U/L (45-117)
[2017-06-19] MEDS ORDERED: VANCOMYCIN 1,000 MG in DEXTROSE 5%-WATER - 250 ML IVPB ONE (09:00)
[2017-06-19] MEDS ORDERED: EPOETIN ALFA 3,000 UNIT/1 ML ML IVPUSH ONE (09:00)
[2017-06-19] MEDS ORDERED: LOSARTAN POTASSIUM 100 MG TABLET PO SCH (10:00)
[2017-06-19] MEDS: SEVELAMER CARBONATE 800 MG TAB (FP) PO SCH ×3 (10:02→17:10)
[2017-06-19] MEDS ORDERED: PT OWN MED DRAWER 7, Y5N ONE ×2 (12:23→18:56)
[2017-06-19] MEDS: NIFEdipine E.R. 30 MG TABLET (FP) PO SCH (12:30)
--- NOTE | 2017-06-19 12:46 | CONSULT ---
Consult - text type - Consultation Consultation Note: Renal Consult for ESRD on HD with volume overload This is a 26 year old woman with PMhx of ESRD on HD (non-complaint with fluid and dietiary restriction), IDDM, Hypertension, PE, Recent diagosed LE wound who presented with complaints of SOB and open blister on left foot. Pt reports last having dialysis on Wednesday. + edema. + SOB on presentation. No fever or chills. has been on Abx as outpatient. S/p short dialysis yesterday and full treatment today. PMhx: as above Allergies: NKDA Family hx: NC Social hx: No T/A/D ROS: as per HPI, all other ROS negative Home Meds: Home Medications Medication Instructions Recorded Sevelamer Carbonate [Renvela -] 1,600 mg PO TIDCM #60 tab 07/14/16 Losartan Potassium [Cozaar -] 100 mg PO DAILY 12/21/16 Labetalol HCl [Normodyne -] 400 mg PO TID #60 tablet 12/26/16 cloNIDine HCL [Catapres -] 0.3 mg PO TID tablet 12/26/16 Hydrocodone/Acetaminophen [Vicodin 1 tab PO Q6H PRN 06/03/17 Hp 10-300 mg Tablet] Insulin Sliding Scale [Novolog 0 vial SQ ACHS 06/03/17 Vial Sliding Scale -] Nifedipine ER [Procardia XL -] 30 mg PO DAILY 06/03/17 Apixaban [Eliquis -] 5 mg PO BID tablet 06/04/17 Hydralazine HCl 75 mg PO TID 06/04/17 Insulin (Levemir) [Levemir Vial] 5 units SQ HS ml 06/04/17 Insulin (Levemir) [Levemir Vial] 17 units SQ AM #0 ml 06/04/17 Vital Signs Temperature 98.2 F 06/19/17 07:35 Pulse Rate 89 06/19/17 12:00 Respiratory Rate 18 06/19/17 12:00 Blood Pressure 163/90 06/19/17 12:00 O2 Sat by Pulse Oximetry (%) 96 06/19/17 02:43 Intake & Output 06/16/17 06/17/17 06/18/17 06/19/17 23:59 23:59 23:59 23:59 Weight 73.845 kg 72.121 kg NAD, awake and alert RRR CTA soft NT/ND 2+ LE edmea + open blister with some blood on left foot right foot/heel in dressing CBC, BMP 06/19/17 06:00 06/19/17 06:00 Current Medications Acetaminophen (Tylenol -) 650 mg PO Q6H PRN PRN Reason: PAIN LEVEL 1-5 Apixaban (Eliquis -) 5 mg PO BID [facility] Last Admin: 06/19/17 12:31 Dose: 5 mg Clonidine (Catapres -) 0.3 mg PO TID [facility] Last Admin: 06/19/17 05:49 Dose: 0.3 mg Hydralazine HCl (Apresoline -) 75 mg PO TID [facility] Last Admin: 06/19/17 05:49 Dose: 75 mg Sodium Chloride (Normal Saline -) 250 mls @ 3,000 mls/hr IV PRN PRN PRN Reason: Hypotension during Dialysis Stop: 06/20/17 06:25 Insulin Aspart (Novolog Vial Sliding Scale -) 1 vial SQ Q4HPO [facility] PRN Reason: Protocol Last Admin: 06/19/17 10:02 Dose: Not Given Insulin Detemir (Levemir Vial) 5 units SQ HS [facility] Last Admin: 06/19/17 00:17 Dose: 5 units Insulin Detemir (Levemir Vial) 17 units SQ AM [facility] Last Admin: 06/19/17 06:17 Dose: 17 units Labetalol HCl (Normodyne -) 400 mg PO TID [facility] Last Admin: 06/19/17 05:51 Dose: 400 mg Losartan Potassium (Cozaar -) 100 mg PO DAILY [facility] Morphine Sulfate (Morphine Sulfate) 1 mg IVPUSH Q4H PRN PRN Reason: PAIN LEVEL 6-10 Last Admin: 06/19/17 10:48 Dose: 1 mg Nifedipine (Procardia Xl -) 30 mg PO DAILY [facility] Last Admin: 06/19/17 12:30 Dose: 30 mg Sevelamer Carbonate (Renvela -) 1,600 mg PO TIDCM [facility] Last Admin: 06/19/17 12:30 Dose: 1,600 mg 26 year old woman with PMhx of ESRD on HD (non-complaint with fluid and dietiary restriction), IDDM, Hypertension, PE, Recent diagosed LE wound who presented with complaints of SOB and open blister on left foot. #ESRD on HD with fluid overload s/p dialysis yesterday and today with aggressive UF Will continue HD on MWF schedule Fluid and salt restriction #LE wound s/p Vancomycin s/p Hd today further Abx as per primary/ID #Hypertension continue Losartan, Labetalol, Nifedpine, Hydralazine #CKD related Anemia Will continue MACIE with HD Thank you Will follow Nathan Vo DO
[2017-06-19] MEDS: LOSARTAN POTASSIUM 50 MG TABLET (FP) PO SCH (13:21)
[2017-06-19] MEDS ORDERED: INSULIN (NOVOLOG) ASPART 100 UNITS/ML 10ML VIAL ONE (14:26)
--- NOTE | 2017-06-19 15:13 | CONSULT ---
Consult - text type - Consultation Consultation Note: Podiatry Consultation: 26 year old IDDM, ESRD F presented to hospital for admission for SOB. Patient well known to me from prior admissions, she is s/p R foot incision and drainage of MRSA abscess. Patient is non-compliant with glucose control and has not routinely followed up in wound healing center. In fact, I have not seen her for at least one month and thus her surgical site has dehiscence. She has been tending to the ulcer on her own for about one month with bacitracin. Denies F/V /C/N. Afebrile, VSS. PMHx: poorly controlled IDDM, HTN, ESRD on HD, h/o PE Meds: Noted ALL: NKMA CATRACHITA: R foot: pedal pulses palpable, TG wnl, CFT brisk to all toes. There is a diabetic ulcer plantar lateral arch with mostly fibrotic base, moderate fibrotic slough, probes deep, no probing to bone, no purulent drainage, no fluctuance, no ascending cellulitis, no signs of active infection. Mild tenderness to palpation. WBC: 7.6 Blood Cx: pending Imp: 26 year old IDDM F with R plantar arch diabetic ulcer, history of MRSA 1. IV abx per ID 2. DSD R foot 3. Rx bactroban + DSD R foot 4. Recommend MRI R foot to evaluate for osteomyelitis 5. Thank you for the courtesy of this consultation Delfino Dubon DPM
--- NOTE | 2017-06-19 15:55 | PN ---
Physical Exam: SUBJECTIVE: Patient seen and examined Patient is comfortable with no acute distress. OBJECTIVE: Vital Signs Temperature 97.9 F 06/19/17 14:37 Pulse Rate 88 06/19/17 14:37 Respiratory Rate 18 06/19/17 14:37 Blood Pressure 152/97 06/19/17 14:37 O2 Sat by Pulse Oximetry (%) 96 06/19/17 02:43 GENERAL: Awake, alert, and fully oriented, in no acute distress. HEAD: Normal with no signs of trauma. EYES: Pupils equal, round and reactive to light, extraocular movements intact, sclera anicteric, conjunctiva clear. No lid lag. NECK: Normal range of motion, supple without lymphadenopathy or masses. JVD seen. LUNGS: Breath sounds equal, clear to auscultation bilaterally. No wheezes, and no crackles. No accessory muscle use. HEART: Regular rate and rhythm, normal S1 and S2 without murmur, rub or gallop. ABDOMEN: Soft, nontender, not distended, normoactive bowel sounds, no rebound, no masses apprciated, No hepatomegaly or splenomegaly. EXTREMITIES: 2+ pulses, warm, well-perfused. No calf tenderness. 2+ peripheral edema. There is an open ulcer on the plantar surface of the right foot. The wound does not express pus, but is draining serous fluid. NEUROLOGICAL: Cranial nerves II-X intact. Normal speech. SKIN: Warm, dry, normal turgor, no rashes or lesions noted, normal capillary refill. CBCD WBC 7.6 K/mm3 (4.0-10.0) 06/19/17 06:00 RBC 3.47 M/mm3 (3.60-5.2) L 06/19/17 06:00 Hgb 9.6 GM/dL (10.7-15.3) L 06/19/17 06:00 Hct 29.5 % (32.4-45.2) L 06/19/17 06:00 MCV 85.1 fl (80-96) 06/19/17 06:00 MCHC 32.4 g/dl (32.0-36.0) 06/19/17 06:00 RDW 18.4 % (11.6-15.6) H 06/19/17 06:00 Plt Count 261 K/MM3 (134-434) 06/19/17 06:00 MPV 9.9 fl (7.5-11.1) 06/19/17 06:00 CMP Sodium 133 mmol/L (136-145) L 06/19/17 06:00 Potassium 3.6 mmol/L (3.5-5.1) 06/19/17 06:00 Chloride 93 mmol/L (98-107) L 06/19/17 06:00 Carbon Dioxide 21 mmol/L (21-32) 06/19/17 06:00 Anion Gap 19 (8-16) H 06/19/17 06:00 BUN 42 mg/dL (7-18) H 06/19/17 06:00 Creatinine 4.3 mg/dL (0.55-1.02) H 06/19/17 06:00 Creat Clearance w eGFR 12.36 (>60) 06/19/17 06:00 Random Glucose 258 mg/dL (74-106) H 06/19/17 06:00 Calcium 8.3 mg/dL (8.5-10.1) L 06/19/17 06:00 Total Bilirubin 0.9 mg/dL (0.2-1.0) 06/19/17 06:00 AST 89 U/L (15-37) H 06/19/17 06:00 ALT 65 U/L (12-78) 06/19/17 06:00 Alkaline Phosphatase 1717 U/L (45-117) H 06/19/17 06:00 Total Protein 8.6 g/dl (6.4-8.2) H 06/19/17 06:00 Albumin 3.1 g/dl (3.4-5.0) L 06/19/17 06:00 CARDIAC ENZYMES Creatine Kinase 72 IU/L (26-192) 06/18/17 15:50 Troponin I < 0.02 ng/ml (0.00-0.05) 06/18/17 15:50 Current Medications Generic Name Dose Route Start Last Admin Trade Name Freq PRN Reason Stop Dose Admin Acetaminophen 650 mg 06/19/17 00:15 Tylenol - PO Q6H PRN PAIN LEVEL 1-5 Apixaban 5 mg 06/18/17 22:00 06/19/17 12:31 Eliquis - PO 5 mg BID [facility] Administration Clonidine 0.3 mg 06/18/17 22:00 06/19/17 13:21 Catapres - PO 0.3 mg TID [facility] Administration Hydralazine HCl 75 mg 06/18/17 22:00 06/19/17 13:22 Apresoline - PO 75 mg TID [facility] Administration Sodium Chloride 250 mls @ 3,000 mls/hr 06/19/17 06:25 Normal Saline - IV 06/20/17 06:25 PRN PRN Hypotension during Dialysis Insulin Aspart 1 vial 06/19/17 03:00 06/19/17 14:30 Novolog Vial Sliding Scale - SQ 4 units Q4HPO [facility] Administration Protocol Insulin Detemir 5 units 06/18/17 22:00 06/19/17 00:17 Levemir Vial SQ 5 units HS [facility] Administration Insulin Detemir 17 units 06/19/17 07:00 06/19/17 06:17 Levemir Vial SQ 17 units AM [facility] Administration Labetalol HCl 400 mg 06/18/17 22:00 06/19/17 13:22 Normodyne - PO 400 mg TID [facility] Administration Losartan Potassium 100 mg 06/19/17 12:30 06/19/17 13:21 Cozaar - PO 100 mg DAILY [facility] Administration Morphine Sulfate 1 mg 06/19/17 00:15 06/19/17 10:48 Morphine Sulfate IVPUSH 1 mg Q4H PRN Administration PAIN LEVEL 6-10 Mupirocin 1 applic 06/20/17 10:00 Bactroban 2% Ointment - TP DAILY [facility] Nifedipine 30 mg 06/19/17 10:00 06/19/17 12:30 Procardia Xl - PO 30 mg DAILY [facility] Administration Sevelamer Carbonate 1,600 mg 06/19/17 08:00 06/19/17 12:30 Renvela - PO 1,600 mg TIDCM [facility] Administration Home Medications Medication Instructions Recorded Sevelamer Carbonate [Renvela -] 1,600 mg PO TIDCM #60 tab 07/14/16 Losartan Potassium [Cozaar -] 100 mg PO DAILY 12/21/16 Labetalol HCl [Normodyne -] 400 mg PO TID #60 tablet 12/26/16 cloNIDine HCL [Catapres -] 0.3 mg PO TID tablet 12/26/16 Hydrocodone/Acetaminophen [Vicodin 1 tab PO Q6H PRN 06/03/17 Hp 10-300 mg Tablet] Insulin Sliding Scale [Novolog 0 vial SQ ACHS 06/03/17 Vial Sliding Scale -] Nifedipine ER [Procardia XL -] 30 mg PO DAILY 06/03/17 Apixaban [Eliquis -] 5 mg PO BID tablet 06/04/17 Hydralazine HCl 75 mg PO TID 06/04/17 Insulin (Levemir) [Levemir Vial] 5 units SQ HS ml 06/04/17 Insulin (Levemir) [Levemir Vial] 17 units SQ AM #0 ml 06/04/17 ASSESSMENT/PLAN: This is a 26 yo f w/ with PMH of HTN, DM, ESRD (HD MWF), PE, MRSA bacteremia, O2 dependent 3L, who is admitted due to SOB. #ESRD on HD with fluid overload s/p HD today , nephro on the case #Rt diabetic foot ulcer ; given zosyn IV s/p luis, ID consulted # DM on Levemir , continue SS with coverage # Hx Of PE on Eliquis #DVT Px:on eliquis 5 BID at home Visit type - Emergency Visit Emergency Visit: Yes ED Registration Date: 06/18/17 Care time: The patient presented to the Emergency Department on the above date and was hospitalized for further evaluation of their emergent condition. - New Patient This patient is new to me today: Yes Date on this admission: 06/19/17 - Critical Care Critical Care patient: No - Discharge Referral Referred to [facility] Med [facility].C[facility] No
[2017-06-19] MEDS ORDERED: PANTOPRAZOLE 20 MG TABLET (FP) PO ONE (16:01)
--- NOTE | 2017-06-19 18:42 | EKG ---
Test Reason : Blood Pressure : / mmHG Vent. Rate : 078 BPM Atrial Rate : 078 BPM P-R Int : 180 ms QRS Dur : 086 ms QT Int : 430 ms P-R-T Axes : 028 -12 039 degrees QTc Int : 490 ms NORMAL SINUS RHYTHM POSSIBLE LEFT ATRIAL ENLARGEMENT POSSIBLE ANTERIOR INFARCT (CITED ON OR BEFORE 04-MAR-2017) ABNORMAL ECG WHEN COMPARED WITH ECG OF 03-JUN-2017 07:35, NO SIGNIFICANT CHANGE WAS FOUND Confirmed by JOAQUINA KATZ MD ([id number]) on 06/19/2017 6:42:22 PM Referred By: Confirmed By:JOAQUINA KATZ MD
[2017-06-19] MEDS ORDERED: DOCUSATE SODIUM 100 MG CAPSULE (FP) PO PRN (20:25)
[2017-06-19] MEDS ORDERED: PIPERACILLIN/TAZOB 3.375 GM/50 ML PRE-DOCKED IVPB ONE (20:54)
[2017-06-19] MEDS: oxyCODONE HCL 5 MG TABLET PO PRN (22:46)
[2017-06-19] MEDS: ACETAMINOPHEN 325 MG TABLET (FP) PO PRN (22:46)
[2017-06-20] MEDS: INSULIN SLIDING SCALE (NOVOLOG) 1 VIAL SQ SCH ×6 (01:58→21:18)
[2017-06-20] MEDS: hydrALAZINE HCL 50 MG TABLET (FP) PO SCH ×3 (06:21→21:09)
[2017-06-20] MEDS: cloNIDine HCL 0.1 MG TABLET PO SCH ×3 (06:21→21:08)
[2017-06-20] MEDS: LABETALOL HCL 200 MG TABLET (FP) PO SCH ×3 (06:21→21:10)
[2017-06-20] MEDS: INSULIN DETEMIR 100 UNITS/ML MDV SQ SCH ×2 (06:24→21:18)
[2017-06-20] MEDS: oxyCODONE HCL 5 MG TABLET PO PRN ×3 (06:31→21:10)
[2017-06-20] MEDS: ACETAMINOPHEN 325 MG TABLET (FP) PO PRN ×2 (06:31→13:39)
[2017-06-20 06:38] LABS: HBSAG SCREEN Negative (Negative); HEP B CORE AB, TOT Negative (Negative)
[2017-06-20] MEDS: LOSARTAN POTASSIUM 50 MG TABLET (FP) PO SCH (10:59)
[2017-06-20] MEDS: SEVELAMER CARBONATE 800 MG TAB (FP) PO SCH ×3 (10:59→17:19)
[2017-06-20] MEDS: NIFEdipine E.R. 30 MG TABLET (FP) PO SCH (11:00)
[2017-06-20] MEDS: APIXABAN 5 MG TABLET PO SCH ×2 (11:00→21:08)
--- NOTE | 2017-06-20 11:08 | PN ---
Progress Note (short form) - Note Progress Note: Renal follow up for ESRD and volume overload Pt seen and examined at the bedside awake and alert no acute complaints has sob yesterday afternoon that improved with nebs and Fan in the room no sob at this time Vital Signs Temperature 98 F 06/20/17 10:56 Pulse Rate 80 06/20/17 10:56 Respiratory Rate 20 06/20/17 10:56 Blood Pressure 128/69 06/20/17 10:56 O2 Sat by Pulse Oximetry (%) 98 06/19/17 21:00 Intake & Output 06/17/17 06/18/17 06/19/17 06/20/17 23:59 23:59 23:59 23:59 Intake Total 13 Balance 13 Weight 73.845 kg 72.121 kg NAD awake and alert RRR CTA soft NT 2+ LE edema CBC, BMP 06/19/17 06:00 06/19/17 06:00 Current Medications Acetaminophen (Tylenol -) 650 mg PO Q6H PRN PRN Reason: PAIN LEVEL 1-5 Acetaminophen (Tylenol -) 325 mg PO Q6H PRN PRN Reason: PAIN LEVEL 6-10 Last Admin: 06/20/17 06:31 Dose: 325 mg Apixaban (Eliquis -) 5 mg PO BID [facility] Last Admin: 06/20/17 11:00 Dose: 5 mg Clonidine (Catapres -) 0.3 mg PO TID [facility] Last Admin: 06/20/17 06:21 Dose: 0.3 mg Docusate Sodium (Colace -) 100 mg PO Q12H PRN PRN Reason: CONSTIPATION Hydralazine HCl (Apresoline -) 75 mg PO TID [facility] Last Admin: 06/20/17 06:21 Dose: 75 mg Insulin Aspart (Novolog Vial Sliding Scale -) 1 vial SQ Q4HPO [facility] PRN Reason: Protocol Last Admin: 06/20/17 06:23 Dose: 2 units Insulin Detemir (Levemir Vial) 5 units SQ HS [facility] Last Admin: 06/19/17 22:51 Dose: 5 units Insulin Detemir (Levemir Vial) 17 units SQ AM [facility] Last Admin: 06/20/17 06:24 Dose: 17 units Labetalol HCl (Normodyne -) 400 mg PO TID [facility] Last Admin: 03/18/18 06:21 Dose: 400 mg Losartan Potassium (Cozaar -) 100 mg PO DAILY [facility] Last Admin: 06/20/17 10:59 Dose: 100 mg Mupirocin (Bactroban 2% Ointment -) 1 applic TP DAILY [facility] Nifedipine (Procardia Xl -) 30 mg PO DAILY [facility] Last Admin: 06/20/17 11:00 Dose: 30 mg Oxycodone HCl (Roxicodone -) 10 mg PO Q6H PRN PRN Reason: PAIN LEVEL 6-10 Last Admin: 06/20/17 06:31 Dose: 10 mg Sevelamer Carbonate (Renvela -) 1,600 mg PO TIDCM [facility] Last Admin: 06/20/17 10:59 Dose: 1,600 mg 26 year old woman with PMhx of ESRD on HD (non-complaint with fluid and dietiary restriction), IDDM, Hypertension, PE, Recent diagosed LE wound who presented with complaints of SOB and open blister on left foot. #ESRD on HD with fluid overload s/p dialysis yesterday next treatment planned for tomorrow in AM UF as tolerated #LE wound s/p Vancomycin s/p Hd further Abx as per primary/ID #Hypertension continue Losartan, Labetalol, Nifedpine, Hydralazine #CKD related Anemia Will continue MACIE with HD Thank you Will follow Nathan Vo DO
--- NOTE | 2017-06-20 13:30 | CON.ID ---
Consult - History of Present Illness History of Present Illness: Asked to evaluate this 26 y.o. 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 Pt presented to the ER for SOB missing HD that day stating she didn't feel well. She had nonspecific, occasional chest discomfort but not currently. She denies any recent, fever, chills, cough, excessive sputum production. Denies any recent purulent drainage from her Rt foot wound. She has no complaints of abd pain, n/v/d, rash, headache, mental status changes. Had HD yesterday and is currently without any respiratory distress. - History Source History Provided By: Patient Limitations to Obtaining History: No Limitations - Past Medical History Cardio/Vascular: Yes: CHF, HTN, Other (thrombus in atrium, PE, DVT) Pulmonary: Yes: Pulmonary Embolus Renal/: Yes: Renal Failure, Hemodialysis ...LMP: 05/13/17 ...: No Infectious Disease: Yes: MRSA (history of bacteremia, recent mrsa foot abscess) Endocrine: Yes: Diabetes Mellitus (type 1 on insulin pump) Additional Medical History: DVT, PE on coumadin - Past Surgical History Past Surgical History: Yes: AV Fistula/Graft (Right arm) - Alcohol/Substance Use Hx Alcohol Use: No History of Substance Use: reports: None - Smoking History Smoking history: Never smoked Have you smoked in the past 12 months: No Aproximately how many cigarettes per day: 10 - Social History Usual Living Arrangement: With Parent ADL: Independent Occupation: unemployed History of Recent Travel: No Home Medications - Allergies Allergies/Adverse Reactions: Allergies Allergy/AdvReac Type Severity Reaction Status Date / Time No Known Drug Allergies Allergy Verified 06/18/17 15:03 - Home Medications Home Medications: Ambulatory Orders Sevelamer Carbonate [Renvela -] 1,600 mg PO TIDCM #60 tab 07/14/16 Losartan Potassium [Cozaar -] 100 mg PO DAILY 12/21/16 Labetalol HCl [Normodyne -] 400 mg PO TID #60 tablet 12/26/16 cloNIDine HCL [Catapres -] 0.3 mg PO TID tablet 12/26/16 Hydrocodone/Acetaminophen [Vicodin Hp 10-300 mg Tablet] 1 tab PO Q6H PRN Insulin Sliding Scale [Novolog Vial Sliding Scale -] 0 vial SQ ACHS 06/03/17 Nifedipine ER [Procardia XL -] 30 mg PO DAILY 06/03/17 Apixaban [Eliquis -] 5 mg PO BID tablet 06/04/17 Hydralazine HCl 75 mg PO TID 06/04/17 Insulin (Levemir) [Levemir Vial] 5 units SQ HS ml 06/04/17 Insulin (Levemir) [Levemir Vial] 17 units SQ AM #0 ml 06/04/17 Family Disease History - Family Disease History Family Disease History: Diabetes: Grandparent (HTN), Heart Disease: Grandparent , Other: Father (unknown), Mother (HTN) Review of Systems - Review of Systems Constitutional: reports: No Symptoms Eyes: reports: No Symptoms HENT: reports: No Symptoms Neck: reports: No Symptoms Cardiovascular: reports: No Symptoms Respiratory: reports: SOB Gastrointestinal: reports: No Symptoms Genitourinary: reports: No Symptoms Musculoskeletal: reports: No Symptoms Integumentary: reports: Wound (Rt plantar wound) Neurological: reports: No Symptoms Endocrine: reports: No Symptoms Hematology/Lymphatic: reports: No Symptoms Psychiatric: reports: No Symptoms Physical Exam Vital Signs: Vital Signs Temperature 98 F 06/20/17 10:56 Pulse Rate 80 06/20/17 10:56 Respiratory Rate 20 06/20/17 10:56 Blood Pressure 128/69 06/20/17 10:56 O2 Sat by Pulse Oximetry (%) 98 06/19/17 21:00 Constitutional: Yes: No Distress, Calm Eyes: Yes: WNL HENT: Yes: WNL Neck: Yes: WNL Cardiovascular: Yes: Regular Rate and Rhythm, Murmur Respiratory: Yes: Other (slightly decreased BS at bases) Gastrointestinal: Yes: Normal Bowel Sounds, Soft ...Rectal Exam: Yes: Deferred Musculoskeletal: Yes: WNL Edema: LLE: 2+, RLE: 2+ Peripheral Pulses WNL: Yes Wound/Incision: Yes: Other (8x2 cm wound without purulence, fibrinous around edges, no periwound edema/erythema, minimal tenderness) Neurological: Yes: Alert, Oriented Psychiatric: Yes: Alert Labs: CBC, BMP 06/19/17 06:00 06/19/17 06:00 Microbiology 06/18/17 16:01 Foot - Right Sole Gram Stain - Final 06/18/17 16:01 Foot - Right Sole Wound Culture - Preliminary Yeast Like Organism 06/18/17 16:25 Blood - Peripheral Venous Blood Culture - Preliminary NO GROWTH OBTAINED AFTER 24 HOURS, INCUBATION TO CONTINUE FOR 4 DAYS. 06/18/17 16:24 Blood - Peripheral Venous Blood Culture - Preliminary NO GROWTH OBTAINED AFTER 24 HOURS, INCUBATION TO CONTINUE FOR 4 DAYS. ESR - 58 Imaging - Results Chest X-ray: Report Reviewed X-ray: Report Reviewed (Rt foot chronic 5th toe deformity) Problem List - Problems (1) Foot infection Code(s): L08.9 - LOCAL INFECTION OF THE SKIN AND SUBCUTANEOUS TISSUE, UNSP (2) Diabetes mellitus, insulin dependent (IDDM), uncontrolled Code(s): E10.65 - TYPE 1 DIABETES MELLITUS WITH HYPERGLYCEMIA (3) Diabetic foot infection Code(s): E11.69 - TYPE 2 DIABETES MELLITUS WITH OTHER SPECIFIED COMPLICATION; L08.9 - LOCAL INFECTION OF THE SKIN AND SUBCUTANEOUS TISSUE, UNSP (4) History of pulmonary embolus (PE) Code(s): Z86.711 - PERSONAL HISTORY OF PULMONARY EMBOLISM (5) Open wound of foot Code(s): S91.309A - UNSPECIFIED OPEN WOUND, UNSPECIFIED FOOT, INITIAL ENCOUNTER (6) Pulmonary embolism Code(s): I26.99 - OTHER PULMONARY EMBOLISM WITHOUT ACUTE COR PULMONALE Qualifiers: Pulmonary embolism type: other Chronicity: chronic Acute cor pulmonale presence: without acute cor pulmonale Qualified Code(s): I27.82 - Chronic pulmonary embolism (7) Dialysis patient Code(s): Z99.2 - DEPENDENCE ON RENAL DIALYSIS (8) ESRD (end stage renal disease) on dialysis Code(s): N18.6 - END STAGE RENAL DISEASE; Z99.2 - DEPENDENCE ON RENAL DIALYSIS (9) HTN (hypertension) Code(s): I10 - ESSENTIAL (PRIMARY) HYPERTENSION Assessment/Plan 26 y.o. female with PMH of IDDM, ESRD on HD, PE, Rt foot plantar abscess/ bacteremia +MRSA s/p I+D s/p course of Vancomycin admitted with c/o SOB and missed last HD. Rt foot nonhealing plantar wound, without purulent drainage or erythema. R/O Rt foot Osteomyelitis - follow up MRI ordered - Blood cultures no growth so far - Vancomycin IV for now - Podiatry following Thank you, will follow up
--- NOTE | 2017-06-20 14:01 | PN ---
Physical Exam: SUBJECTIVE: Patient seen and examined, feeling well, no complaints or issues OBJECTIVE: Vital Signs Period Temp Pulse Resp BP Sys/Ames Pulse Ox Last 24 Hr 97.9 F-98.5 F 77-90 18-20 128-183/69-100 98 GENERAL: The patient is awake, alert, and fully oriented, in no acute distress. HEAD: Normal with no signs of trauma. EYES: PERRL, extraocular movements intact, sclera anicteric, conjunctiva clear. No ptosis. ENT: Ears normal, nares patent, oropharynx clear without exudates, moist mucous membranes. NECK: Trachea midline, full range of motion, supple. LUNGS: Breath sounds equal, clear to auscultation bilaterally, no wheezes, no crackles, no accessory muscle use. HEART: Regular rate and rhythm, S1, S2 without murmur, rub or gallop. ABDOMEN: Soft, nontender, nondistended, normoactive bowel sounds, no guarding, no rebound, no hepatosplenomegaly, no masses. EXTREMITIES:Rt foot wound is with dressing NEUROLOGICAL: Cranial nerves II through XII grossly intact. Normal speech, gait not observed. PSYCH: Normal mood, normal affect. SKIN: Warm, dry, normal turgor, no rashes or lesions noted Laboratory Results - last 24 hr 06/18/17 06/19/17 06/19/17 20:30 14:23 18:12 POC Glucometer 210 101 Hepatitis A Ab Total Negative Hep Bs Antigen Negative Hep Bs Antibody Reactive Hep B Core Total Ab Negative Hep C Ab Diagnostic <0.1 06/19/17 06/20/17 06/20/17 21:13 06:18 11:10 POC Glucometer 194 154 137 Hepatitis A Ab Total Hep Bs Antigen Hep Bs Antibody Hep B Core Total Ab Hep C Ab Diagnostic Active Medications Generic Name Dose Route Start Last Admin Trade Name Freq PRN Reason Stop Dose Admin Acetaminophen 650 mg 06/19/17 00:15 Tylenol - PO Q6H PRN PAIN LEVEL 1-5 Acetaminophen 325 mg 06/19/17 20:27 06/20/17 13:39 Tylenol - PO 325 mg Q6H PRN Administration PAIN LEVEL 6-10 Apixaban 5 mg 06/18/17 22:00 06/20/17 11:00 Eliquis - PO 5 mg BID [facility] Administration Clonidine 0.3 mg 06/18/17 22:00 06/20/17 13:40 Catapres - PO 0.3 mg TID [facility] Administration Docusate Sodium 100 mg 06/19/17 20:25 Colace - PO Q12H PRN CONSTIPATION Hydralazine HCl 75 mg 06/18/17 22:00 06/20/17 13:39 Apresoline - PO 75 mg TID [facility] Administration Insulin Aspart 1 vial 06/19/17 03:00 06/20/17 13:52 Novolog Vial Sliding Scale - SQ Not Given Q4HPO [facility] Protocol Insulin Detemir 5 units 06/18/17 22:00 06/19/17 22:51 Levemir Vial SQ 5 units HS [facility] Administration Insulin Detemir 17 units 06/19/17 07:00 06/20/17 06:24 Levemir Vial SQ 17 units AM [facility] Administration Labetalol HCl 400 mg 06/18/17 22:00 06/20/17 13:40 Normodyne - PO 400 mg TID [facility] Administration Losartan Potassium 100 mg 06/19/17 12:30 06/20/17 10:59 Cozaar - PO 100 mg DAILY [facility] Administration Mupirocin 1 applic 06/20/17 10:00 Bactroban 2% Ointment - TP DAILY [facility] Nifedipine 30 mg 06/19/17 10:00 06/20/17 11:00 Procardia Xl - PO 30 mg DAILY [facility] Administration Oxycodone HCl 10 mg 06/19/17 20:25 06/20/17 13:38 Roxicodone - PO 10 mg Q6H PRN Administration PAIN LEVEL 6-10 Sevelamer Carbonate 1,600 mg 06/19/17 08:00 06/20/17 13:13 Renvela - PO Not Given TIDCM [facility] Vancomycin HCl 1,000 mg 06/21/17 10:00 Vancomycin (Pre-Docked) IVPB MoWeFr@1000 [facility] ASSESSMENT/PLAN: 26F with ESRD on HD chronic RT foot ulcer after debreided abscess with MRSA come in initially fluid overloaded which has subsequently improved with HD. She also has worsening drainage from her foot ID and Podiatry following MRI foot to eval for OM wound care Vanc on HD days HTN moderately controlled hx PE - continue Eliquis Problem List - Problems (1) Fluid overload Code(s): E87.70 - FLUID OVERLOAD, UNSPECIFIED Qualifiers: Hypervolemia type: unspecified Qualified Code(s): E87.70 - Fluid overload, unspecified (2) Foot infection Code(s): L08.9 - LOCAL INFECTION OF THE SKIN AND SUBCUTANEOUS TISSUE, UNSP (3) Diabetes mellitus, insulin dependent (IDDM), uncontrolled Code(s): E10.65 - TYPE 1 DIABETES MELLITUS WITH HYPERGLYCEMIA (4) History of pulmonary embolus (PE) Code(s): Z86.711 - PERSONAL HISTORY OF PULMONARY EMBOLISM (5) Open wound of foot Code(s): S91.309A - UNSPECIFIED OPEN WOUND, UNSPECIFIED FOOT, INITIAL ENCOUNTER Visit type - Emergency Visit Emergency Visit: Yes ED Registration Date: 06/18/17 Care time: The patient presented to the Emergency Department on the above date and was hospitalized for further evaluation of their emergent condition. - New Patient This patient is new to me today: Yes Date on this admission: 06/20/17 - Critical Care Critical Care patient: No
[2017-06-20] MEDS: MUPIROCIN 2% TOPICAL OINTMENT 22 GM TUBE TP SCH (18:28)
[2017-06-21] MEDS: INSULIN SLIDING SCALE (NOVOLOG) 1 VIAL SQ SCH ×7 (02:17→21:16)
[2017-06-21] MEDS: oxyCODONE HCL 5 MG TABLET PO PRN ×3 (03:17→22:58)
[2017-06-21] MEDS: hydrALAZINE HCL 50 MG TABLET (FP) PO SCH ×3 (06:46→21:04)
[2017-06-21] MEDS: cloNIDine HCL 0.1 MG TABLET PO SCH ×3 (06:46→21:07)
[2017-06-21] MEDS: LABETALOL HCL 200 MG TABLET (FP) PO SCH ×3 (06:46→21:08)
[2017-06-21] MEDS: INSULIN DETEMIR 100 UNITS/ML MDV SQ SCH ×2 (06:49→21:12)
[2017-06-21] MEDS ORDERED: PT OWN MED DRAWER 7, Y5N ONE ×3 (07:02→12:52)
[2017-06-21] MEDS ORDERED: INSULIN (NOVOLOG) ASPART 100 UNITS/ML 10ML VIAL ONE ×3 (08:56→21:03)
[2017-06-21] MEDS: SEVELAMER CARBONATE 800 MG TAB (FP) PO SCH ×3 (08:59→17:43)
[2017-06-21] MEDS: NIFEdipine E.R. 30 MG TABLET (FP) PO SCH (08:59)
[2017-06-21] MEDS: APIXABAN 5 MG TABLET PO SCH ×2 (08:59→21:11)
[2017-06-21] MEDS: LOSARTAN POTASSIUM 50 MG TABLET (FP) PO SCH (08:59)
[2017-06-21] MEDS ORDERED: VANCOMYCIN 1 GRAM (PRE-DOCKED) 1,000 MG/250 ML BAG IVPB SCH (10:00)
[2017-06-21] MEDS: MUPIROCIN 2% TOPICAL OINTMENT 22 GM TUBE TP SCH (12:30)
--- NOTE | 2017-06-21 13:02 | PN ---
Progress Note (short form) - Note Progress Note: Podiatry F/U: Seen/evaluated at bedside, NAD. Pain controlled, denies F/V/N/C/SOB/CP. Afebrile, VSS. Sugars still poorly controlled. CATRACHITA: R foot: plantar arch diabetic ulcer with mixed fibrogranular base, moderate fibrotic slough, probes at least 1.0 cm, no bone palpated, no purulent drainage , no fluctuance, no soft tissue crepitus, no ascending cellulitis, no signs of active infection. Minimal tenderness to palpation. WBC: 7.6 ESR: 58 Wound Cx: yeast like organism, staph coag neg Imp: 26 year old poorly controlled IDDM with R foot DFU 1. Continue bactroban for local wound care 2. Continue IV abx per Infectious Disease 3. For MRI R foot 4. Will follow Delfino Dubon DPM
[2017-06-21] MEDS: RANITIDINE HCL 150 MG TABLET (FP) PO SCH (13:31)
--- NOTE | 2017-06-21 14:32 | PN ---
Progress Note, Physician History of Present Illness: patient feeling better in dialysis no problems dressing present - Current Medication List Current Medications: Active Medications Acetaminophen (Tylenol -) 650 mg PO Q6H PRN PRN Reason: PAIN LEVEL 1-5 Acetaminophen (Tylenol -) 325 mg PO Q6H PRN PRN Reason: PAIN LEVEL 6-10 Last Admin: 06/20/17 13:39 Dose: 325 mg Apixaban (Eliquis -) 5 mg PO BID [facility] Last Admin: 06/21/17 08:59 Dose: 5 mg Clonidine (Catapres -) 0.3 mg PO TID [facility] Last Admin: 06/21/17 13:31 Dose: 0.3 mg Docusate Sodium (Colace -) 100 mg PO Q12H PRN PRN Reason: CONSTIPATION Epoetin Abiel (Epogen -) 10,000 unit IVPUSH ONCE ONE Stop: 06/21/17 06:29 Hydralazine HCl (Apresoline -) 75 mg PO TID [facility] Last Admin: 06/21/17 13:31 Dose: 75 mg Sodium Chloride (Normal Saline -) 250 mls @ 3,000 mls/hr IV PRN PRN PRN Reason: Hypotension during Dialysis Stop: 06/22/17 06:28 Insulin Aspart (Novolog Vial Sliding Scale -) 1 vial SQ Q4HPO [facility] PRN Reason: Protocol Last Admin: 06/21/17 13:39 Dose: 6 units Insulin Detemir (Levemir Vial) 5 units SQ HS [facility] Last Admin: 06/20/17 21:18 Dose: 5 units Insulin Detemir (Levemir Vial) 17 units SQ AM [facility] Last Admin: 06/21/17 06:49 Dose: 17 units Labetalol HCl (Normodyne -) 400 mg PO TID [facility] Last Admin: 06/21/17 13:31 Dose: 400 mg Losartan Potassium (Cozaar -) 100 mg PO DAILY [facility] Last Admin: 06/21/17 08:59 Dose: 100 mg Mupirocin (Bactroban 2% Ointment -) 1 applic TP DAILY [facility] Last Admin: 06/20/17 18:28 Dose: 1 applic Nifedipine (Procardia Xl -) 30 mg PO DAILY [facility] Last Admin: 06/21/17 08:59 Dose: 30 mg Oxycodone HCl (Roxicodone -) 10 mg PO Q6H PRN PRN Reason: PAIN LEVEL 6-10 Last Admin: 06/21/17 12:47 Dose: 10 mg Ranitidine HCl (Zantac -) 150 mg PO DAILY [facility] Last Admin: 06/21/17 13:31 Dose: 150 mg Sevelamer Carbonate (Renvela -) 1,600 mg PO TIDCM [facility] Last Admin: 06/21/17 11:53 Dose: 1,600 mg Vancomycin HCl (Vancomycin (Pre-Docked)) 1,000 mg IVPB MoWeFr@1000 [facility] - Objective Vital Signs: Vital Signs Temperature 98.0 F 06/21/17 06:00 Pulse Rate 83 06/21/17 06:00 Respiratory Rate 20 06/21/17 06:00 Blood Pressure 184/109 06/21/17 06:00 O2 Sat by Pulse Oximetry (%) 98 06/20/17 21:00 Constitutional: Yes: No Distress, Calm Cardiovascular: Yes: Regular Rate and Rhythm Respiratory: Yes: Regular, CTA Bilaterally Gastrointestinal: Yes: Normal Bowel Sounds, Soft Musculoskeletal: Yes: WNL Extremities: Yes: Other Wound/Incision: Yes: Other (Other (8x2 cm wound without purulence, fibrinous around edges, no periwound edema/erythema, minimal tenderness)) Neurological: Yes: Alert, Oriented Psychiatric: Yes: Alert, Oriented Labs: CBC, BMP 06/19/17 06:00 06/19/17 06:00 Assessment/Plan Problem List - Problems (1) Foot infection Code(s): L08.9 - LOCAL INFECTION OF THE SKIN AND SUBCUTANEOUS TISSUE, UNSP (2) Diabetes mellitus, insulin dependent (IDDM), uncontrolled Code(s): E10.65 - TYPE 1 DIABETES MELLITUS WITH HYPERGLYCEMIA (3) Diabetic foot infection Code(s): E11.69 - TYPE 2 DIABETES MELLITUS WITH OTHER SPECIFIED COMPLICATION; L08.9 - LOCAL INFECTION OF THE SKIN AND SUBCUTANEOUS TISSUE, UNSP (4) History of pulmonary embolus (PE) Code(s): Z86.711 - PERSONAL HISTORY OF PULMONARY EMBOLISM (5) Open wound of foot Code(s): S91.309A - UNSPECIFIED OPEN WOUND, UNSPECIFIED FOOT, INITIAL ENCOUNTER (6) Pulmonary embolism Code(s): I26.99 - OTHER PULMONARY EMBOLISM WITHOUT ACUTE COR PULMONALE Qualifiers: Pulmonary embolism type: other Chronicity: chronic Acute cor pulmonale presence: without acute cor pulmonale Qualified Code(s): I27.82 - Chronic pulmonary embolism (7) Dialysis patient Code(s): Z99.2 - DEPENDENCE ON RENAL DIALYSIS (8) ESRD (end stage renal disease) on dialysis Code(s): N18.6 - END STAGE RENAL DISEASE; Z99.2 - DEPENDENCE ON RENAL DIALYSIS (9) HTN (hypertension) Code(s): I10 - ESSENTIAL (PRIMARY) HYPERTENSION Assessment/Plan 26 y.o. female with PMH of IDDM, ESRD on HD, PE, Rt foot plantar abscess/ bacteremia +MRSA s/p I+D s/p course of Vancomycin admitted with c/o SOB and missed last HD. Rt foot nonhealing plantar wound, without purulent drainage or erythema. continue vanco for now patient going for mri tomorrow podiatry on case rest as per primary team
--- NOTE | 2017-06-21 14:36 | PN ---
Teaching Attending Note Name of Resident: Brayan Buckley ATTENDING PHYSICIAN STATEMENT I saw and evaluated the patient. I reviewed the resident's note and discussed the case with the resident. I agree with the resident's findings and plan as documented. SUBJECTIVE: Patient has no complaints. OBJECTIVE: Vital Signs Period Temp Pulse Resp BP Sys/Ames Pulse Ox Last 24 Hr 97.6 F-98.0 F 83-85 20-20 146-184/79-109 98 HEART: S1S2, RRR LUNGS: Clear ABDOMEN: Soft, non-tender, non-distended, normal BS EXTREMITIES: Laboratory Results - last 24 hr 06/19/17 06/19/17 06/20/17 01:06 02:57 01:49 POC Glucometer 589 501 459 06/20/17 06/20/17 06/21/17 17:08 21:17 02:13 POC Glucometer 195 207 206 06/21/17 06/21/17 06/21/17 06:45 10:12 13:39 POC Glucometer 241 126 257 Current Medications Generic Name Dose Route Start Last Admin Trade Name Freq PRN Reason Stop Dose Admin Acetaminophen 650 mg 06/19/17 00:15 Tylenol - PO Q6H PRN PAIN LEVEL 1-5 Acetaminophen 325 mg 06/19/17 20:27 06/20/17 13:39 Tylenol - PO 325 mg Q6H PRN Administration PAIN LEVEL 6-10 Apixaban 5 mg 06/18/17 22:00 06/21/17 08:59 Eliquis - PO 5 mg BID [facility] Administration Clonidine 0.3 mg 06/18/17 22:00 06/21/17 13:31 Catapres - PO 0.3 mg TID [facility] Administration Docusate Sodium 100 mg 06/19/17 20:25 Colace - PO Q12H PRN CONSTIPATION Epoetin Abiel 10,000 unit 06/21/17 15:30 Procrit - IVPUSH 06/21/17 15:31 ONCE ONE Hydralazine HCl 75 mg 06/18/17 22:00 06/21/17 13:31 Apresoline - PO 75 mg TID [facility] Administration Sodium Chloride 250 mls @ 3,000 mls/hr 06/21/17 15:30 Normal Saline - IV 06/22/17 15:29 PRN PRN Hypotension during Dialysis Insulin Aspart 1 vial 06/19/17 03:00 06/21/17 13:39 Novolog Vial Sliding Scale - SQ 6 units Q4HPO [facility] Administration Protocol Insulin Detemir 5 units 06/18/17 22:00 06/20/17 21:18 Levemir Vial SQ 5 units HS [facility] Administration Insulin Detemir 17 units 06/19/17 07:00 06/21/17 06:49 Levemir Vial SQ 17 units AM [facility] Administration Labetalol HCl 400 mg 06/18/17 22:00 06/21/17 13:31 Normodyne - PO 400 mg TID [facility] Administration Losartan Potassium 100 mg 06/19/17 12:30 06/21/17 08:59 Cozaar - PO 100 mg DAILY [facility] Administration Mupirocin 1 applic 06/20/17 10:00 06/20/17 18:28 Bactroban 2% Ointment - TP 1 applic DAILY [facility] Administration Nifedipine 30 mg 06/19/17 10:00 06/21/17 08:59 Procardia Xl - PO 30 mg DAILY [facility] Administration Oxycodone HCl 10 mg 06/19/17 20:25 06/21/17 12:47 Roxicodone - PO 10 mg Q6H PRN Administration PAIN LEVEL 6-10 Ranitidine HCl 150 mg 06/21/17 13:00 06/21/17 13:31 Zantac - PO 150 mg DAILY [facility] Administration Sevelamer Carbonate 1,600 mg 06/19/17 08:00 06/21/17 11:53 Renvela - PO 1,600 mg TIDCM [facility] Administration Vancomycin HCl 1,000 mg 06/21/17 10:00 Vancomycin (Pre-Docked) IVPB MoWeFr@1000 [facility] ASSESSMENT AND PLAN: This is a 26 year old woman with a history of HTN, type 1 DM, ESRD, PE, MRSA bacteremia, chronic hypoxic respiratory failure who presented to the ED with SOB. 1. SOB secondary to fluid overload - Improved with HD 2. Chronic hypoxic respiratory failure - Continue oxygen 3. Infected diabetic right foot ulcer - On Vancomycin - Continue wound care - MRI to evaluate for osteomyelitis 4. ESRD - Continue HD, Renvela 5. Anemia secondary to ESRD - Continue Procrit 6. Type 1 DM - Continue Levemir, Novolog sliding scale 7. HTN - Continue Hydralazine, Clonidine, Procardia XL, Cozaar, Labetalol 8. History of PE - Continue Eliquis
[2017-06-21] MEDS ORDERED: VANCOMYCIN 1,000 MG in DEXTROSE 5%-WATER - 250 ML IVPB SCH (15:00)
[2017-06-21] MEDS ORDERED: diphenhydrAMINE HCL 25 MG CAPSULE (FP) PO PRN (15:07)
[2017-06-21 15:21] LABS: MCH 28.1 pg (25.7-33.7); MEAN CELL VOLUME 87.2 fl (80-96); MEAN PLT VOLUME 10.3 fl (7.5-11.1); PLATELET COUNT 241 K/MM3 (134-434); RBC 3.28 M/mm3 (3.60-5.2); WHITE BLOOD COUNT 5.2 K/mm3 (4.0-10.0)
[2017-06-21 15:23] LABS: BASO % 1.6 % (0-2.0); HEMATOCRIT 28.6 % (32.4-45.2); HEMOGLOBIN 9.2 GM/dL (10.7-15.3); LYMPH % 12.6 % (8-40); MCHC 32.3 g/dl (32.0-36.0); NEUT % 65.8 % (42.8-82.8)
[2017-06-21] MEDS ORDERED: EPOETIN ALFA 10,000 UNIT/1 ML VIAL IVPUSH ONE (15:30)
[2017-06-21] MEDS ORDERED: SODIUM CHLORIDE 250 ML IV PRN (15:30)
[2017-06-21 15:34] LABS: ANION GAP 11 (8-16); BILIRUBIN,TOTAL 0.7 mg/dL (0.2-1.0); BLOOD UREA NITROGEN 58 mg/dL (7-18); CALCIUM 7.5 mg/dL (8.5-10.1); CHLORIDE 98 mmol/L (98-107); CO2 25 mmol/L (21-32); CREATININE 5.5 mg/dL (0.55-1.02); GLUCOSE,RANDOM 270 mg/dL (74-106); MAGNESIUM 1.9 mg/dL (1.8-2.4); POTASSIUM 4.4 mmol/L (3.5-5.1); SGOT/AST 102 U/L (15-37); SGPT/ALT 63 U/L (12-78); SODIUM 134 mmol/L (136-145)
[2017-06-21 15:47] LABS: ALK PHOS 1400 U/L (45-117); TOT PROT 7.5 g/dl (6.4-8.2)
--- NOTE | 2017-06-21 17:35 | PN ---
Physical Exam: SUBJECTIVE: Patient seen and examined OBJECTIVE: Vital Signs Period Temp Pulse Resp BP Sys/Ames Pulse Ox Last 24 Hr 97.6 F-98.0 F 81-97 18-20 142-184/79-109 98-98 GENERAL: The patient is awake, alert, and fully oriented, in no acute distress. HEAD: Normal with no signs of trauma. EYES: PERRL, extraocular movements intact, sclera anicteric, conjunctiva clear. No ptosis. ENT: Ears normal, nares patent, oropharynx clear without exudates, moist mucous membranes. NECK: Trachea midline, full range of motion, supple. LUNGS: Breath sounds equal, clear to auscultation bilaterally, no wheezes, no crackles, no accessory muscle use. HEART: Regular rate and rhythm, S1, S2 without murmur, rub or gallop. ABDOMEN: Soft, nontender, nondistended, normoactive bowel sounds, no guarding, no rebound, no hepatosplenomegaly, no masses. EXTREMITIES: 2+ pulses, warm, well-perfused, no edema. NEUROLOGICAL: Cranial nerves II through XII grossly intact. Normal speech, gait not observed. PSYCH: Normal mood, normal affect. SKIN: Warm, dry, normal turgor, no rashes or lesions noted Laboratory Results - last 24 hr 06/19/17 06/19/17 06/20/17 01:06 02:57 01:49 WBC RBC Hgb Hct MCV MCH MCHC RDW Plt Count MPV Neutrophils % Lymphocytes % Monocytes % Eosinophils % Basophils % Sodium Potassium Chloride Carbon Dioxide Anion Gap BUN Creatinine Creat Clearance w eGFR POC Glucometer 589 501 459 Random Glucose Calcium Magnesium Total Bilirubin AST ALT Alkaline Phosphatase Total Protein Albumin Vancomycin Pre-Dose 06/20/17 06/20/17 06/21/17 17:08 21:17 02:13 WBC RBC Hgb Hct MCV MCH MCHC RDW Plt Count MPV Neutrophils % Lymphocytes % Monocytes % Eosinophils % Basophils % Sodium Potassium Chloride Carbon Dioxide Anion Gap BUN Creatinine Creat Clearance w eGFR POC Glucometer 195 207 206 Random Glucose Calcium Magnesium Total Bilirubin AST ALT Alkaline Phosphatase Total Protein Albumin Vancomycin Pre-Dose 06/21/17 06/21/17 06/21/17 06:45 10:12 13:39 WBC RBC Hgb Hct MCV MCH MCHC RDW Plt Count MPV Neutrophils % Lymphocytes % Monocytes % Eosinophils % Basophils % Sodium Potassium Chloride Carbon Dioxide Anion Gap BUN Creatinine Creat Clearance w eGFR POC Glucometer 241 126 257 Random Glucose Calcium Magnesium Total Bilirubin AST ALT Alkaline Phosphatase Total Protein Albumin Vancomycin Pre-Dose 06/21/17 06/21/17 06/21/17 14:20 14:20 15:20 WBC 5.2 D RBC 3.28 L Hgb 9.2 L Hct 28.6 L MCV 87.2 MCH 28.1 MCHC 32.3 RDW 19.0 H Plt Count 241 MPV 10.3 Neutrophils % 65.8 Lymphocytes % 12.6 Monocytes % 15.0 H Eosinophils % 5.0 H D Basophils % 1.6 Sodium 134 L Potassium 4.4 Chloride 98 Carbon Dioxide 25 Anion Gap 11 BUN 58 H Creatinine 5.5 H Creat Clearance w eGFR 9.30 POC Glucometer Random Glucose 270 H Calcium 7.5 L Magnesium 1.9 Total Bilirubin 0.7 D AST 102 H ALT 63 Alkaline Phosphatase 1400 H Total Protein 7.5 Albumin 3.0 L Vancomycin Pre-Dose 7.445 Active Medications Generic Name Dose Route Start Last Admin Trade Name Freq PRN Reason Stop Dose Admin Acetaminophen 650 mg 06/19/17 00:15 Tylenol - PO Q6H PRN PAIN LEVEL 1-5 Acetaminophen 325 mg 06/19/17 20:27 06/20/17 13:39 Tylenol - PO 325 mg Q6H PRN Administration PAIN LEVEL 6-10 Apixaban 5 mg 06/18/17 22:00 06/21/17 08:59 Eliquis - PO 5 mg BID ROSA MARIA Administration Clonidine 0.3 mg 06/18/17 22:00 06/21/17 13:31 Catapres - PO 0.3 mg TID ROSA [facility]IA Administration Diphenhydramine HCl 25 mg 06/21/17 15:07 06/21/17 15:39 Benadryl - PO 25 mg ONCE PRN Administration FOR ITCHING Docusate Sodium 100 mg 06/19/17 20:25 Colace - PO Q12H PRN CONSTIPATION Hydralazine HCl 75 mg 06/18/17 22:00 06/21/17 13:31 Apresoline - PO 75 mg TID ROSA MARIA Administration Sodium Chloride 250 mls @ 3,000 mls/hr 06/21/17 15:30 Normal Saline - IV 06/22/17 15:29 PRN PRN Hypotension during Dialysis Vancomycin HCl 1,000 mg/ 250 mls @ 166.667 mls/hr 06/21/17 15:00 Dextrose IVPB MoWeFr@1500 [facility] Insulin Aspart 1 vial 06/19/17 03:00 06/21/17 13:39 Novolog Vial Sliding Scale - SQ 6 units Q4HPO ROSA MARIA Administration Protocol Insulin Detemir 5 units 06/18/17 22:00 06/20/17 21:18 Levemir Vial SQ 5 units HS ROSA MARIA Administration Insulin Detemir 17 units 06/19/17 07:00 06/21/17 06:49 Levemir Vial SQ 17 units AM ROSA [facility]IA Administration Labetalol HCl 400 mg 06/18/17 22:00 06/21/17 13:31 Normodyne - PO 400 mg TID ROSA [facility]IA Administration Losartan Potassium 100 mg 06/19/17 12:30 06/21/17 08:59 Cozaar - PO 100 mg DAILY ROSA [facility]IA Administration Mupirocin 1 applic 06/20/17 10:00 06/21/17 12:30 Bactroban 2% Ointment - TP 1 applic DAILY ROS[facility] Administration Nifedipine 30 mg 06/19/17 10:00 06/21/17 08:59 Procardia Xl - PO 30 mg DAILY ROS[facility] Administration Oxycodone HCl 10 mg 06/19/17 20:25 06/21/17 12:47 Roxicodone - PO 10 mg Q6H PRN Administration PAIN LEVEL 6-10 Ranitidine HCl 150 mg 06/21/17 13:00 06/21/17 13:31 Zantac - PO 150 mg DAILY ROS[facility]IA Administration Sevelamer Carbonate 1,600 mg 06/19/17 08:00 06/21/17 11:53 Renvela - PO 1,600 mg TIDCM ROSA [facility]IA Administration Vancomycin HCl 1,000 mg 06/21/17 10:00 06/21/17 17:29 Vancomycin (Pre-Docked) IVPB 1,000 mg MoWeFr@1000 ROSA [facility]IA Administration ASSESSMENT/PLAN: This is a 26 yo f w/ with PMH of HTN, DM, ESRD (HD MWF), PE, MRSA bacteremia, O2 dependent 3L, who is admitted due to SOB. #HD patient with fluid overload -Nephrology onboard, for HD today -fluid status improved after regular HD -monitor fluid status #Rt diabetic foot ulcer -wound wrapped during evaluation; patient refused examination -Vanco 1g to be given w/ HD -cultures growing yeast like organism -podiatry onboard; s/p debridement today -For MRI right foot #Elevated anion gap/ DM -Patient noted to have bread, bubble gum and other snacks at bedside -Anion gap now closed -c/w home Levemir 30u BID -BGM Q4H -ISS Q4H -Patient known to be noncompliant in the past #FEN -no fluids indicated -monitor lytes -diabetic diet #Prophy -on eliquis 5 BID at home #Dispo -admit to med surg Visit type - Emergency Visit Emergency Visit: Yes ED Registration Date: 06/18/17 Care time: The patient presented to the Emergency Department on the above date and was hospitalized for further evaluation of their emergent condition. - New Patient This patient is new to me today: No - Critical Care Critical Care patient: No
--- NOTE | 2017-06-21 17:53 | PN ---
Progress Note (short form) - Note Progress Note: Renal follow up for ESRD and volume overload Pt seen and examined at the bedside no acute complaints denies any sob, chest pain no pain in foot no fever, chills N/V/D Vital Signs Temperature 97.6 F 06/21/17 15:12 Pulse Rate 90 06/21/17 16:10 Respiratory Rate 18 06/21/17 16:10 Blood Pressure 180/107 06/21/17 16:10 O2 Sat by Pulse Oximetry (%) 98 06/21/17 11:00 Intake & Output 06/18/17 06/19/17 06/20/17 06/21/17 23:59 23:59 23:59 23:59 Intake Total 13 360 Balance 13 360 Weight 73.845 kg 72.121 kg 73.255 kg NAD awake and alert RRR CTA soft NT 2+ LE edema CBC, BMP 06/21/17 14:20 06/21/17 14:20 Current Medications Acetaminophen (Tylenol -) 650 mg PO Q6H PRN PRN Reason: PAIN LEVEL 1-5 Acetaminophen (Tylenol -) 325 mg PO Q6H PRN PRN Reason: PAIN LEVEL 6-10 Last Admin: 06/20/17 13:39 Dose: 325 mg Apixaban (Eliquis -) 5 mg PO BID [facility] Last Admin: 06/21/17 08:59 Dose: 5 mg Clonidine (Catapres -) 0.3 mg PO TID [facility] Last Admin: 06/21/17 13:31 Dose: 0.3 mg Diphenhydramine HCl (Benadryl -) 25 mg PO ONCE PRN PRN Reason: FOR ITCHING Last Admin: 06/21/17 15:39 Dose: 25 mg Docusate Sodium (Colace -) 100 mg PO Q12H PRN PRN Reason: CONSTIPATION Hydralazine HCl (Apresoline -) 75 mg PO TID [facility] Last Admin: 06/21/17 13:31 Dose: 75 mg Sodium Chloride (Normal Saline -) 250 mls @ 3,000 mls/hr IV PRN PRN PRN Reason: Hypotension during Dialysis Stop: 06/22/17 15:29 Vancomycin HCl 1,000 mg/ (Dextrose) 250 mls @ 166.667 mls/hr IVPB MoWeFr@1500 [facility] Insulin Aspart (Novolog Vial Sliding Scale -) 1 vial SQ Q4HPO [facility] PRN Reason: Protocol Last Admin: 06/21/17 17:39 Dose: 4 units Insulin Detemir (Levemir Vial) 5 units SQ HS [facility] Last Admin: 06/20/17 21:18 Dose: 5 units Insulin Detemir (Levemir Vial) 17 units SQ AM [facility] Last Admin: 06/21/17 06:49 Dose: 17 units Labetalol HCl (Normodyne -) 400 mg PO TID [facility] Last Admin: 06/21/17 13:31 Dose: 400 mg Losartan Potassium (Cozaar -) 100 mg PO DAILY [facility] Last Admin: 06/21/17 08:59 Dose: 100 mg Mupirocin (Bactroban 2% Ointment -) 1 applic TP DAILY [facility] Last Admin: 06/21/17 12:30 Dose: 1 applic Nifedipine (Procardia Xl -) 30 mg PO DAILY [facility] Last Admin: 06/21/17 08:59 Dose: 30 mg Oxycodone HCl (Roxicodone -) 10 mg PO Q6H PRN PRN Reason: PAIN LEVEL 6-10 Last Admin: 06/21/17 12:47 Dose: 10 mg Ranitidine HCl (Zantac -) 150 mg PO DAILY [facility] Last Admin: 06/21/17 13:31 Dose: 150 mg Sevelamer Carbonate (Renvela -) 1,600 mg PO TIDCM [facility] Last Admin: 06/21/17 17:43 Dose: 1,600 mg Vancomycin HCl (Vancomycin (Pre-Docked)) 1,000 mg IVPB MoWeFr@1000 [facility] Last Admin: 06/21/17 17:29 Dose: 1,000 mg 26 year old woman with PMhx of ESRD on HD (non-complaint with fluid and dietiary restriction), IDDM, Hypertension, PE, Recent diagosed LE wound who presented with complaints of SOB and open blister on left foot. #ESRD on HD with fluid overload for dialysis today with UF as tolerated continue to encourge fluid restriction despite pts non-compliance. #LE wound will continue Vanco dosed by levels Remaineder of Abx as per ID #Hypertension continue Losartan, Labetalol, Nifedpine, Hydralazine #CKD related Anemia Will continue MACIE with HD Nathan Vo DO
[2017-06-21] MEDS: VANCOMYCIN 1,000 MG in DEXTROSE 5%-WATER - 250 ML IVPB SCH (17:58)
[2017-06-21 20:03] LABS: CREATININE 2.4 mg/dL (0.55-1.02)
[2017-06-21] MEDS ORDERED: PATIENT'S OWN MEDICATION (NON-FORMULARY) (Insulin Detemir [Levemir Flextouch] 30 UNIT) SQ SCH (22:00)
[2017-06-21] MEDS: ACETAMINOPHEN 325 MG TABLET (FP) PO PRN (22:59)
[2017-06-22] MEDS: INSULIN SLIDING SCALE (NOVOLOG) 1 VIAL SQ SCH ×6 (01:00→21:15)
[2017-06-22] MEDS: INSULIN DETEMIR 100 UNITS/ML MDV SQ SCH ×2 (06:21→21:14)
[2017-06-22] MEDS: hydrALAZINE HCL 50 MG TABLET (FP) PO SCH ×3 (06:22→21:10)
[2017-06-22] MEDS: LABETALOL HCL 200 MG TABLET (FP) PO SCH ×3 (06:23→21:10)
[2017-06-22] MEDS: cloNIDine HCL 0.1 MG TABLET PO SCH ×3 (06:23→21:10)
[2017-06-22] MEDS: ACETAMINOPHEN 325 MG TABLET (FP) PO PRN ×2 (06:34→15:01)
[2017-06-22] MEDS: oxyCODONE HCL 5 MG TABLET PO PRN ×3 (06:34→23:29)
[2017-06-22 09:07] LABS: ANION GAP 10 (8-16); BLOOD UREA NITROGEN 34 mg/dL (7-18); CALCIUM 7.7 mg/dL (8.5-10.1); CHLORIDE 99 mmol/L (98-107); CO2 28 mmol/L (21-32); CREATININE 3.7 mg/dL (0.55-1.02); GLUCOSE,RANDOM 107 mg/dL (74-106); MAGNESIUM 1.8 mg/dL (1.8-2.4); PHOSPHOROUS 4.6 mg/dL (2.5-4.9); POTASSIUM 3.6 mmol/L (3.5-5.1); SODIUM 137 mmol/L (136-145)
[2017-06-22] MEDS: RANITIDINE HCL 150 MG TABLET (FP) PO SCH (10:39)
[2017-06-22] MEDS: APIXABAN 5 MG TABLET PO SCH ×2 (10:39→21:10)
[2017-06-22] MEDS: NIFEdipine E.R. 30 MG TABLET (FP) PO SCH (10:39)
[2017-06-22] MEDS: SEVELAMER CARBONATE 800 MG TAB (FP) PO SCH ×3 (10:39→18:15)
[2017-06-22] MEDS: LOSARTAN POTASSIUM 50 MG TABLET (FP) PO SCH (10:39)
[2017-06-22] MEDS ORDERED: EPOETIN ALFA 3,000 UNIT/1 ML ML IVPUSH ONE (11:45)
--- NOTE | 2017-06-22 13:59 | PN ---
Progress Note, Physician History of Present Illness: stable feels very weak - Current Medication List Current Medications: Active Medications Acetaminophen (Tylenol -) 325 mg PO Q6H PRN PRN Reason: PAIN LEVEL 6-10 Last Admin: 06/22/17 06:34 Dose: 325 mg Apixaban (Eliquis -) 5 mg PO BID [facility] Last Admin: 06/22/17 10:39 Dose: 5 mg Clonidine (Catapres -) 0.3 mg PO TID [facility] Last Admin: 06/22/17 06:23 Dose: 0.3 mg Diphenhydramine HCl (Benadryl -) 25 mg PO ONCE PRN PRN Reason: FOR ITCHING Last Admin: 06/21/17 15:39 Dose: 25 mg Docusate Sodium (Colace -) 100 mg PO Q12H PRN PRN Reason: CONSTIPATION Hydralazine HCl (Apresoline -) 75 mg PO TID [facility] Last Admin: 06/22/17 06:22 Dose: 75 mg Sodium Chloride (Normal Saline -) 250 mls @ 3,000 mls/hr IV PRN PRN PRN Reason: Hypotension during Dialysis Stop: 06/22/17 15:29 Vancomycin HCl 1,000 mg/ (Dextrose) 250 mls @ 166.667 mls/hr IVPB MoWeFr@1500 [facility] Last Admin: 06/21/17 17:58 Dose: Not Given Insulin Aspart (Novolog Vial Sliding Scale -) 1 vial SQ Q4HPO [facility] PRN Reason: Protocol Last Admin: 06/22/17 06:21 Dose: Not Given Insulin Detemir (Levemir Vial) 30 units SQ BID@0700,2200 [facility] Last Admin: 06/22/17 06:21 Dose: 16 units Labetalol HCl (Normodyne -) 400 mg PO TID [facility] Last Admin: 06/22/17 06:23 Dose: 400 mg Losartan Potassium (Cozaar -) 100 mg PO DAILY [facility] Last Admin: 06/22/17 10:39 Dose: 100 mg Mupirocin (Bactroban 2% Ointment -) 1 applic TP DAILY [facility] Last Admin: 06/21/17 12:30 Dose: 1 applic Nifedipine (Procardia Xl -) 30 mg PO DAILY [facility] Last Admin: 06/22/17 10:39 Dose: 30 mg Oxycodone HCl (Roxicodone -) 10 mg PO Q6H PRN PRN Reason: PAIN LEVEL 6-10 Last Admin: 06/22/17 06:34 Dose: 10 mg Ranitidine HCl (Zantac -) 150 mg PO DAILY [facility] Last Admin: 06/22/17 10:39 Dose: 150 mg Sevelamer Carbonate (Renvela -) 1,600 mg PO TIDCM [facility] Last Admin: 06/22/17 10:39 Dose: 1,600 mg Vancomycin HCl (Vancomycin (Pre-Docked)) 1,000 mg IVPB MoWeFr@1000 [facility] Last Admin: 06/21/17 17:29 Dose: 1,000 mg - Objective Vital Signs: Vital Signs Temperature 98 F 06/22/17 10:00 Pulse Rate 85 06/22/17 10:00 Respiratory Rate 20 06/22/17 10:00 Blood Pressure 146/86 06/22/17 10:00 O2 Sat by Pulse Oximetry (%) 98 06/21/17 21:00 Constitutional: Yes: No Distress, Calm Cardiovascular: Yes: Regular Rate and Rhythm Respiratory: Yes: Regular, CTA Bilaterally Gastrointestinal: Yes: Normal Bowel Sounds, Soft Musculoskeletal: Yes: Other Extremities: Yes: Other Integumentary: Yes: Other Wound/Incision: Yes: Dressing Dry and Intact Neurological: Yes: Alert, Oriented Psychiatric: Yes: Alert, Oriented Labs: CBC, BMP 06/21/17 14:20 06/22/17 08:11 Assessment/Plan Problem List - Problems (1) Foot infection Code(s): L08.9 - LOCAL INFECTION OF THE SKIN AND SUBCUTANEOUS TISSUE, UNSP (2) Diabetes mellitus, insulin dependent (IDDM), uncontrolled Code(s): E10.65 - TYPE 1 DIABETES MELLITUS WITH HYPERGLYCEMIA (3) Diabetic foot infection Code(s): E11.69 - TYPE 2 DIABETES MELLITUS WITH OTHER SPECIFIED COMPLICATION; L08.9 - LOCAL INFECTION OF THE SKIN AND SUBCUTANEOUS TISSUE, UNSP (4) History of pulmonary embolus (PE) Code(s): Z86.711 - PERSONAL HISTORY OF PULMONARY EMBOLISM (5) Open wound of foot Code(s): S91.309A - UNSPECIFIED OPEN WOUND, UNSPECIFIED FOOT, INITIAL ENCOUNTER (6) Pulmonary embolism Code(s): I26.99 - OTHER PULMONARY EMBOLISM WITHOUT ACUTE COR PULMONALE Qualifiers: Pulmonary embolism type: other Chronicity: chronic Acute cor pulmonale presence: without acute cor pulmonale Qualified Code(s): I27.82 - Chronic pulmonary embolism (7) Dialysis patient Code(s): Z99.2 - DEPENDENCE ON RENAL DIALYSIS (8) ESRD (end stage renal disease) on dialysis Code(s): N18.6 - END STAGE RENAL DISEASE; Z99.2 - DEPENDENCE ON RENAL DIALYSIS (9) HTN (hypertension) Code(s): I10 - ESSENTIAL (PRIMARY) HYPERTENSION Assessment/Plan 26 y.o. female with PMH of IDDM, ESRD on HD, PE, Rt foot plantar abscess/ bacteremia +MRSA s/p I+D s/p course of Vancomycin admitted with c/o SOB and missed last HD. Rt foot nonhealing plantar wound, without purulent drainage or erythema. continue vanco await for mri report rest as per primary continue current mgmt
[2017-06-22] MEDS ORDERED: INSULIN DETEMIR 100 UNITS/ML MDV SQ SCH (14:08)
--- NOTE | 2017-06-22 16:28 | PN ---
Teaching Attending Note Name of Resident: Brayan Buckley ATTENDING PHYSICIAN STATEMENT I saw and evaluated the patient. I reviewed the resident's note and discussed the case with the resident. I agree with the resident's findings and plan as documented. SUBJECTIVE: No complaints. OBJECTIVE: Vital Signs Period Temp Pulse Resp BP Sys/Ames Pulse Ox Last 24 Hr 98 F-98.7 F 85-97 17-20 132-198/82-114 98 HEART: S1S2, RRR LUNGS: Clear ABDOMEN: Soft, non-tender, non-distended, normal BS EXTREMITIES: Right foot wrapped - patient won't allow it to be unwrapped Laboratory Results - last 24 hr 06/21/17 06/21/17 06/21/17 15:20 17:38 18:30 Sodium Potassium Chloride Carbon Dioxide Anion Gap BUN 18 D Creatinine 2.4 H POC Glucometer 226 Random Glucose Calcium Phosphorus Magnesium Random Vancomycin Vancomycin Pre-Dose 7.445 06/21/17 06/22/17 06/22/17 20:58 00:52 06:20 Sodium Potassium Chloride Carbon Dioxide Anion Gap BUN Creatinine POC Glucometer 368 134 142 Random Glucose Calcium Phosphorus Magnesium Random Vancomycin Vancomycin Pre-Dose 06/22/17 06/22/17 06/22/17 08:11 08:11 10:34 Sodium 137 Potassium 3.6 Chloride 99 Carbon Dioxide 28 Anion Gap 10 BUN 34 H Creatinine 3.7 H POC Glucometer 72 Random Glucose 107 H Calcium 7.7 L Phosphorus 4.6 Magnesium 1.8 Random Vancomycin 12.590 Vancomycin Pre-Dose 06/22/17 15:11 Sodium Potassium Chloride Carbon Dioxide Anion Gap BUN Creatinine POC Glucometer 183 Random Glucose Calcium Phosphorus Magnesium Random Vancomycin Vancomycin Pre-Dose Current Medications Generic Name Dose Route Start Last Admin Trade Name Freq PRN Reason Stop Dose Admin Acetaminophen 325 mg 06/19/17 20:27 06/22/17 15:01 Tylenol - PO 325 mg Q6H PRN Administration PAIN LEVEL 6-10 Apixaban 5 mg 06/18/17 22:00 06/22/17 10:39 Eliquis - PO 5 mg BID ROSA MARIA Administration Clonidine 0.3 mg 06/18/17 22:00 06/22/17 15:02 Catapres - PO 0.3 mg TID ROSA MARIA Administration Diphenhydramine HCl 25 mg 06/21/17 15:07 03/19/18 15:39 Benadryl - PO 25 mg ONCE PRN Administration FOR ITCHING Docusate Sodium 100 mg 06/19/17 20:25 Colace - PO Q12H PRN CONSTIPATION Hydralazine HCl 100 mg 06/22/17 14:07 Apresoline - PO TID [facility] Vancomycin HCl 1,000 mg/ 250 mls @ 166.667 mls/hr 06/21/17 15:00 06/21/17 17: 58 Dextrose IVPB Not Given MoWeFr@1500 [facility] Insulin Aspart 1 vial 06/19/17 03:00 06/22/17 15:18 Novolog Vial Sliding Scale - SQ 2 units Q4HPO [facility] Administration Protocol Insulin Detemir 16 units 06/22/17 14:08 Levemir Vial SQ BID@0700,2200 [facility] Labetalol HCl 400 mg 06/18/17 22:00 06/22/17 15:03 Normodyne - PO 400 mg TID ROSA MARIA Administration Losartan Potassium 100 mg 06/19/17 12:30 06/22/17 10:39 Cozaar - PO 100 mg DAILY ROS[facility]IA Administration Mupirocin 1 applic 06/20/17 10:00 06/21/17 12:30 Bactroban 2% Ointment - TP 1 applic DAILY [facility] Administration Nifedipine 30 mg 06/19/17 10:00 06/22/17 10:39 Procardia Xl - PO 30 mg DAILY [facility]IA Administration Oxycodone HCl 10 mg 06/19/17 20:25 06/22/17 15:01 Roxicodone - PO 10 mg Q6H PRN Administration PAIN LEVEL 6-10 Ranitidine HCl 150 mg 06/21/17 13:00 06/22/17 10:39 Zantac - PO 150 mg DAILY ROSA MARIA Administration Sevelamer Carbonate 1,600 mg 06/19/17 08:00 06/22/17 15:02 Renvela - PO Not Given TIDCM [facility] ASSESSMENT AND PLAN: This is a 26 year old woman with a history of HTN, type 1 DM, ESRD, PE, MRSA bacteremia, chronic hypoxic respiratory failure who presented to the ED with SOB. 1. SOB secondary to fluid overload - Improved with HD 2. Chronic hypoxic respiratory failure - Continue oxygen 3. Infected diabetic right foot ulcer - On Vancomycin - Continue wound care - MRI pending 4. ESRD - Continue HD, Renvela 5. Anemia secondary to ESRD - Continue Procrit 6. Type 1 DM - Continue Levemir, Novolog sliding scale 7. HTN - Hydralazine increased - Continue Clonidine, Procardia XL, Cozaar, Labetalol 8. History of PE - Continue Eliquis
--- NOTE | 2017-06-22 17:11 | PN ---
Progress Note (short form) - Note Progress Note: Podiatry F/u: Seen/evaluated at bedside, NAD. Pain controlled, denies F/V/N/C/SOB/CP. Afebrile, VSS. CATRACHITA: R foot: plantar lateral arch diabetic ulcer with mixed fibrogranular base, moderate fibrotic slough, macerated borders, no purulent drainage, no fluctuance , no periwound erythema, no ascending cellulitis, no signs of active infection. Mild tenderness to palpation. WBC: 5.2 ESR: 58 Wound Cx; yeast like organism, staph coag negative MRI: report pending Imp: 26 year old poorly controlled DM F with R plantar arch diabetic ulcer 1. Excisional debridement of right foot diabetic ulcer to subcutaneous tissue using #15 blade scalpel and pick ups. Patient tolerated procedure well. 2. C/w bactroban for local wound care Rx. 3. MRI report pending 4. Needs tighter glycemic control. 5. Will follow. Delfino Dubon DPM
--- NOTE | 2017-06-22 17:29 | PN ---
Physical Exam: SUBJECTIVE: Patient seen and examined at bedside. Patient has no new complaints. OBJECTIVE: Vital Signs Period Temp Pulse Resp BP Sys/Ames Pulse Ox Last 24 Hr 98 F-98.7 F 85-97 17-20 132-198/82-114 98-98 GENERAL: The patient is awake, alert, and fully oriented, in no acute distress. NECK: Trachea midline, full range of motion, supple. LUNGS: Breath sounds equal, clear to auscultation bilaterally, no wheezes, no crackles, no accessory muscle use. HEART: Regular rate and rhythm, S1, S2 without murmur, rub or gallop. ABDOMEN: Soft, nontender, nondistended, normoactive bowel sounds, no guarding, no rebound, no hepatosplenomegaly, no masses. EXTREMITIES: 2+ pulses, warm, well-perfused, no edema. NEUROLOGICAL: Cranial nerves II through X grossly intact. Normal speech, gait not observed. Laboratory Results - last 24 hr 06/21/17 06/21/17 06/21/17 17:38 18:30 20:58 Sodium Potassium Chloride Carbon Dioxide Anion Gap BUN 18 D Creatinine 2.4 H POC Glucometer 226 368 Random Glucose Calcium Phosphorus Magnesium Random Vancomycin 06/22/17 06/22/17 06/22/17 00:52 06:20 08:11 Sodium Potassium Chloride Carbon Dioxide Anion Gap BUN Creatinine POC Glucometer 134 142 Random Glucose Calcium Phosphorus Magnesium Random Vancomycin 12.590 06/22/17 06/22/17 06/22/17 08:11 10:34 15:11 Sodium 137 Potassium 3.6 Chloride 99 Carbon Dioxide 28 Anion Gap 10 BUN 34 H Creatinine 3.7 H POC Glucometer 72 183 Random Glucose 107 H Calcium 7.7 L Phosphorus 4.6 Magnesium 1.8 Random Vancomycin Active Medications Generic Name Dose Route Start Last Admin Trade Name Freq PRN Reason Stop Dose Admin Acetaminophen 325 mg 06/19/17 20:27 06/22/17 15:01 Tylenol - PO 325 mg Q6H PRN Administration PAIN LEVEL 6-10 Apixaban 5 mg 06/18/17 22:00 06/22/17 10:39 Eliquis - PO 5 mg BID ROSA MARIA Administration Calcium Carbonate 500 mg 06/23/17 10:00 Os-Gilberto 500mg - PO DAILY [facility] Clonidine 0.3 mg 06/18/17 22:00 06/22/17 15:02 Catapres - PO 0.3 mg TID [facility] Administration Diphenhydramine HCl 25 mg 06/21/17 15:07 06/21/17 15:39 Benadryl - PO 25 mg ONCE PRN Administration FOR ITCHING Docusate Sodium 100 mg 06/19/17 20:25 Colace - PO Q12H PRN CONSTIPATION Hydralazine HCl 100 mg 06/22/17 14:07 Apresoline - PO TID [facility] Vancomycin HCl 1,000 mg/ 250 mls @ 166.667 mls/hr 06/21/17 15:00 06/21/17 17: 58 Dextrose IVPB Not Given MoWeFr@1500 [facility] Insulin Aspart 1 vial 06/19/17 03:00 06/22/17 15:18 Novolog Vial Sliding Scale - SQ 2 units Q4HPO [facility] Administration Protocol Insulin Detemir 20 units 06/22/17 17:18 Levemir Vial SQ BID@0700,2200 [facility] Labetalol HCl 400 mg 06/18/17 22:00 06/22/17 15:03 Normodyne - PO 400 mg TID [facility] Administration Losartan Potassium 100 mg 06/19/17 12:30 06/22/17 10:39 Cozaar - PO 100 mg DAILY [facility] Administration Mupirocin 1 applic 06/20/17 10:00 06/21/17 12:30 Bactroban 2% Ointment - TP 1 applic DAILY [facility] Administration Nifedipine 30 mg 06/19/17 10:00 06/22/17 10:39 Procardia Xl - PO 30 mg DAILY [facility] Administration Oxycodone HCl 10 mg 06/19/17 20:25 06/22/17 15:01 Roxicodone - PO 10 mg Q6H PRN Administration PAIN LEVEL 6-10 Ranitidine HCl 150 mg 06/21/17 13:00 06/22/17 10:39 Zantac - PO 150 mg DAILY [facility] Administration Sevelamer Carbonate 1,600 mg 06/19/17 08:00 06/22/17 15:02 Renvela - PO Not Given TIDCM [facility] ASSESSMENT/PLAN: This is a 26 yo f w/ with PMH of HTN, DM, ESRD (HD MWF), PE, MRSA bacteremia, O2 dependent 3L, who is admitted due to SOB. #HD patient with fluid overload -Nephrology onboard, s/p HD yesterday -monitor fluid status -supplement calcium #Rt diabetic foot ulcer -wound wrapped during evaluation; patient refused examination -Vanco 1g to be given w/ HD -podiatry onboard -f/u MRI right foot #Elevated anion gap/ DM -Patient noted to have bread, bubble gum and other snacks at bedside -as per patient pharmacy, on home Levemir 30u BID -patient refuses 30u; will decrease to 20u -BGM ACHS -ISS ACHS -Patient known to be noncompliant in the past #FEN -no fluids indicated -monitor lytes -diabetic diet #Prophy -on eliquis 5 BID at home #Dispo -admit to med surg Visit type - Emergency Visit Emergency Visit: Yes ED Registration Date: 06/18/17 Care time: The patient presented to the Emergency Department on the above date and was hospitalized for further evaluation of their emergent condition. - New Patient This patient is new to me today: No - Critical Care Critical Care patient: No
--- NOTE | 2017-06-22 17:30 | PN ---
Progress Note (short form) - Note Progress Note: Renal follow up for ESRD and volume overload Pt seen and examined at the bedside no acute complaints s/p dialysis yesterday denies any fever, chills, SOB, chest pain legs remain swollen pt appears non-compliant with diet Vital Signs Temperature 98.2 F 06/22/17 14:18 Pulse Rate 86 06/22/17 14:18 Respiratory Rate 17 06/22/17 14:18 Blood Pressure 132/82 06/22/17 14:18 O2 Sat by Pulse Oximetry (%) 98 06/22/17 09:00 Intake & Output 06/19/17 06/20/17 06/21/17 06/22/17 23:59 23:59 23:59 23:59 Intake Total 13 360 Balance 13 360 Weight 72.121 kg 73.255 kg NAD awake and alert RRR CTA soft NT 2+ LE edema CBC, BMP 06/21/17 14:20 06/22/17 08:11 Current Medications Acetaminophen (Tylenol -) 325 mg PO Q6H PRN PRN Reason: PAIN LEVEL 6-10 Last Admin: 06/22/17 15:01 Dose: 325 mg Apixaban (Eliquis -) 5 mg PO BID [facility] Last Admin: 06/22/17 10:39 Dose: 5 mg Calcium Carbonate (Os-Gilberto 500mg -) 500 mg PO DAILY [facility] Clonidine (Catapres -) 0.3 mg PO TID [facility] Last Admin: 06/22/17 15:02 Dose: 0.3 mg Diphenhydramine HCl (Benadryl -) 25 mg PO ONCE PRN PRN Reason: FOR ITCHING Last Admin: 06/21/17 15:39 Dose: 25 mg Docusate Sodium (Colace -) 100 mg PO Q12H PRN PRN Reason: CONSTIPATION Hydralazine HCl (Apresoline -) 100 mg PO TID [facility] Vancomycin HCl 1,000 mg/ (Dextrose) 250 mls @ 166.667 mls/hr IVPB MoWeFr@1500 [facility] Last Admin: 06/21/17 17:58 Dose: Not Given Insulin Aspart (Novolog Vial Sliding Scale -) 1 vial SQ Q4HPO [facility] PRN Reason: Protocol Last Admin: 06/22/17 15:18 Dose: 2 units Insulin Detemir (Levemir Vial) 20 units SQ BID@0700,2200 [facility] Labetalol HCl (Normodyne -) 400 mg PO TID [facility] Last Admin: 06/22/17 15:03 Dose: 400 mg Losartan Potassium (Cozaar -) 100 mg PO DAILY [facility] Last Admin: 06/22/17 10:39 Dose: 100 mg Mupirocin (Bactroban 2% Ointment -) 1 applic TP DAILY [facility] Last Admin: 06/21/17 12:30 Dose: 1 applic Nifedipine (Procardia Xl -) 30 mg PO DAILY [facility] Last Admin: 06/22/17 10:39 Dose: 30 mg Oxycodone HCl (Roxicodone -) 10 mg PO Q6H PRN PRN Reason: PAIN LEVEL 6-10 Last Admin: 06/22/17 15:01 Dose: 10 mg Ranitidine HCl (Zantac -) 150 mg PO DAILY [facility] Last Admin: 06/22/17 10:39 Dose: 150 mg Sevelamer Carbonate (Renvela -) 1,600 mg PO TIDCM [facility] Last Admin: 06/22/17 15:02 Dose: Not Given 26 year old woman with PMhx of ESRD on HD (non-complaint with fluid and dietary restriction), IDDM, Hypertension, PE, Recent diagnosed LE wound who presented with complaints of SOB and open blister on left foot. #ESRD on HD with fluid overload s/p dialysis yesterday, next treatment planned for tomorrow continue fluid restriction (pt is non-compliant) #LE wound will continue Vanco with HD Remainder of Abx as per ID podiatry follow up wound care #Hypertension continue Losartan, Labetalol, Nifedpine, Hydralazine #CKD related Anemia Will continue MACIE with HD Nathan Vo DO
[2017-06-22] MEDS ORDERED: SODIUM CHLORIDE 250 ML IV PRN (17:40)
[2017-06-22] MEDS: MUPIROCIN 2% TOPICAL OINTMENT 22 GM TUBE TP SCH (18:12)
[2017-06-23] MEDS ORDERED: diphenhydrAMINE HCL 25 MG CAPSULE (FP) PO PRN (01:17)
[2017-06-23] MEDS: INSULIN SLIDING SCALE (NOVOLOG) 1 VIAL SQ SCH ×6 (02:12→21:12)
[2017-06-23] MEDS: cloNIDine HCL 0.1 MG TABLET PO SCH ×3 (05:47→21:09)
[2017-06-23] MEDS: hydrALAZINE HCL 50 MG TABLET (FP) PO SCH ×3 (05:47→21:08)
[2017-06-23] MEDS: LABETALOL HCL 200 MG TABLET (FP) PO SCH ×3 (05:47→21:09)
[2017-06-23] MEDS: oxyCODONE HCL 5 MG TABLET PO PRN ×3 (05:54→23:43)
[2017-06-23] MEDS: INSULIN DETEMIR 100 UNITS/ML MDV SQ SCH ×2 (06:26→21:12)
[2017-06-23] MEDS: CALCIUM (OYSTER SHELL) 500 MG TABLET (FP) PO SCH (09:01)
[2017-06-23] MEDS: LOSARTAN POTASSIUM 50 MG TABLET (FP) PO SCH (09:02)
[2017-06-23] MEDS: SEVELAMER CARBONATE 800 MG TAB (FP) PO SCH ×3 (09:02→16:52)
[2017-06-23] MEDS: APIXABAN 5 MG TABLET PO SCH ×2 (09:02→21:08)
[2017-06-23] MEDS: RANITIDINE HCL 150 MG TABLET (FP) PO SCH (09:02)
[2017-06-23] MEDS: NIFEdipine E.R. 30 MG TABLET (FP) PO SCH (09:02)
[2017-06-23] MEDS: MUPIROCIN 2% TOPICAL OINTMENT 22 GM TUBE TP SCH (09:30)
--- NOTE | 2017-06-23 09:41 | PN ---
Progress Note (short form) - Note Progress Note: Podiatry F/U: Seen/evaluated at bedside, NAD. Pain controlled, denies F/V/N/C/SOB/CP. Afebrile, VSS. CATRACHITA: R foot: plantar arch diabetic ulcer with mixed fibrogranular base, hyperkeratotic and macerated borders, no probing to bone, no purulent drainage, no fluctuance, no periwound erythema, no ascending cellulitis, no signs of active infection. Mild tenderness to palpation. Imp: 26 year old DM F with R plantar arch diabetic ulcer 1. C/w IV abx per ID 2. MRI reviewed with patient, demonstrating no evidence of osteomyelitis 3. Can continue with bactroban for local wound care Rx. 4. Patient needs home nursing services for bactroban + DSD changed 3x/week. 5. Upon discharge, will f/u with me in wound healing center. 6. Podiatry stable, no surgical intervention required. Delfino Dubon DPM
[2017-06-23] MEDS ORDERED: EPOETIN ALFA 20,000 UNIT/1 ML VIAL IVPUSH ONE (10:15)
[2017-06-23 10:23] LABS: HEMATOCRIT 28.1 % (32.4-45.2); MCH 27.8 pg (25.7-33.7); MEAN CELL VOLUME 86.8 fl (80-96); MEAN PLT VOLUME 9.5 fl (7.5-11.1); PLATELET COUNT 254 K/MM3 (134-434); RBC 3.23 M/mm3 (3.60-5.2); RDW 18.4 % (11.6-15.6); WHITE BLOOD COUNT 6.1 K/mm3 (4.0-10.0)
[2017-06-23 11:16] LABS: ANION GAP 15 (8-16); BLOOD UREA NITROGEN 61 mg/dL (7-18); CHLORIDE 98 mmol/L (98-107); CO2 23 mmol/L (21-32); CREATININE 5.1 mg/dL (0.55-1.02); GLUCOSE,RANDOM 127 mg/dL (74-106); PHOSPHOROUS 5.6 mg/dL (2.5-4.9); SODIUM 136 mmol/L (136-145)
[2017-06-23] MEDS ORDERED: PT OWN MED DRAWER 7, Y5N ONE ×2 (11:58→12:01)
--- NOTE | 2017-06-23 12:35 | PN ---
Progress Note (short form) - Note Progress Note: Renal follow up for ESRD and volume overload Pt seen and examined during dialysis BP stable, access with good flow, UF goal is 4L pt without complaints no fever, chills, sob, chest pain, abd pain, N/V/D Vital Signs Temperature 98.4 F 06/23/17 09:40 Pulse Rate 86 06/23/17 11:45 Respiratory Rate 18 06/23/17 11:45 Blood Pressure 177/108 06/23/17 11:45 O2 Sat by Pulse Oximetry (%) 100 06/22/17 21:00 Intake & Output 06/20/17 06/21/17 06/22/17 06/23/17 23:59 23:59 23:59 23:59 Intake Total 360 373 250 Balance 360 373 250 Weight 73.255 kg NAD awake and alert RRR CTA soft NT 2+ LE edema CBC, BMP 06/23/17 09:45 06/23/17 09:45 Current Medications Acetaminophen (Tylenol -) 325 mg PO Q6H PRN PRN Reason: PAIN LEVEL 6-10 Last Admin: 06/22/17 15:01 Dose: 325 mg Apixaban (Eliquis -) 5 mg PO BID [facility] Last Admin: 06/23/17 09:02 Dose: 5 mg Calcium Carbonate (Os-Gilberto 500mg -) 500 mg PO DAILY [facility] Last Admin: 06/23/17 09:01 Dose: 500 mg Clonidine (Catapres -) 0.3 mg PO TID [facility] Last Admin: 06/23/17 05:47 Dose: 0.3 mg Diphenhydramine HCl (Benadryl -) 25 mg PO HS PRN PRN Reason: INSOMNIA Last Admin: 06/23/17 01:22 Dose: 25 mg Docusate Sodium (Colace -) 100 mg PO Q12H PRN PRN Reason: CONSTIPATION Hydralazine HCl (Apresoline -) 100 mg PO TID [facility] Last Admin: 06/23/17 05:47 Dose: 100 mg Vancomycin HCl 1,000 mg/ (Dextrose) 250 mls @ 166.667 mls/hr IVPB MoWeFr@1500 [facility] Last Admin: 06/21/17 17:58 Dose: Not Given Sodium Chloride (Normal Saline -) 250 mls @ 3,000 mls/hr IV PRN PRN PRN Reason: Hypotension during Dialysis Stop: 06/23/17 17:40 Insulin Aspart (Novolog Vial Sliding Scale -) 1 vial SQ ACHS [facility] PRN Reason: Protocol Last Admin: 06/23/17 12:17 Dose: 2 units Insulin Detemir (Levemir Vial) 20 units SQ BID@0700,2200 [facility] Last Admin: 06/23/17 06:26 Dose: 20 units Labetalol HCl (Normodyne -) 400 mg PO TID [facility] Last Admin: 06/23/17 05:47 Dose: 400 mg Losartan Potassium (Cozaar -) 100 mg PO DAILY [facility] Last Admin: 06/23/17 09:02 Dose: 100 mg Mupirocin (Bactroban 2% Ointment -) 1 applic TP DAILY [facility] Last Admin: 06/22/17 18:12 Dose: Not Given Nifedipine (Procardia Xl -) 30 mg PO DAILY [facility] Last Admin: 06/23/17 09:02 Dose: 30 mg Oxycodone HCl (Roxicodone -) 10 mg PO Q6H PRN PRN Reason: PAIN LEVEL 6-10 Last Admin: 06/23/17 05:54 Dose: 10 mg Ranitidine HCl (Zantac -) 150 mg PO DAILY [facility] Last Admin: 06/23/17 09:02 Dose: 150 mg Sevelamer Carbonate (Renvela -) 1,600 mg PO TIDCM [facility] Last Admin: 06/23/17 12:16 Dose: 1,600 mg 26 year old woman with PMhx of ESRD on HD (non-complaint with fluid and dietary restriction), IDDM, Hypertension, PE, Recent diagnosed LE wound who presented with complaints of SOB and open blister on left foot. #ESRD on HD with fluid overload tolerating dialysis today UF as tolerated #LE wound MRI w/o evidence of osteomylitis will get Vanco with HD today ID follow up for abx course #Hypertension continue Losartan, Labetalol, Nifedpine, Hydralazine #CKD related Anemia Will continue MACIE with HD Nathan Vo DO
[2017-06-23] MEDS: VANCOMYCIN 1,000 MG in DEXTROSE 5%-WATER - 250 ML IVPB SCH ×2 (12:55→14:14)
--- NOTE | 2017-06-23 13:06 | PN ---
Progress Note, Physician History of Present Illness: patient doing well no complaints - Current Medication List Current Medications: Active Medications Acetaminophen (Tylenol -) 325 mg PO Q6H PRN PRN Reason: PAIN LEVEL 6-10 Last Admin: 06/22/17 15:01 Dose: 325 mg Apixaban (Eliquis -) 5 mg PO BID [facility] Last Admin: 06/23/17 09:02 Dose: 5 mg Calcium Carbonate (Os-Gilberto 500mg -) 500 mg PO DAILY [facility] Last Admin: 06/23/17 09:01 Dose: 500 mg Clonidine (Catapres -) 0.3 mg PO TID [facility] Last Admin: 06/23/17 05:47 Dose: 0.3 mg Diphenhydramine HCl (Benadryl -) 25 mg PO HS PRN PRN Reason: INSOMNIA Last Admin: 06/23/17 01:22 Dose: 25 mg Docusate Sodium (Colace -) 100 mg PO Q12H PRN PRN Reason: CONSTIPATION Hydralazine HCl (Apresoline -) 100 mg PO TID [facility] Last Admin: 06/23/17 05:47 Dose: 100 mg Vancomycin HCl 1,000 mg/ (Dextrose) 250 mls @ 166.667 mls/hr IVPB MoWeFr@1500 [facility] Last Admin: 06/23/17 12:55 Dose: 166.667 mls/hr Sodium Chloride (Normal Saline -) 250 mls @ 3,000 mls/hr IV PRN PRN PRN Reason: Hypotension during Dialysis Stop: 06/23/17 17:40 Insulin Aspart (Novolog Vial Sliding Scale -) 1 vial SQ ACHS [facility] PRN Reason: Protocol Last Admin: 06/23/17 12:17 Dose: 2 units Insulin Detemir (Levemir Vial) 20 units SQ BID@0700,2200 [facility] Last Admin: 06/23/17 06:26 Dose: 20 units Labetalol HCl (Normodyne -) 400 mg PO TID [facility] Last Admin: 06/23/17 05:47 Dose: 400 mg Losartan Potassium (Cozaar -) 100 mg PO DAILY [facility] Last Admin: 06/23/17 09:02 Dose: 100 mg Mupirocin (Bactroban 2% Ointment -) 1 applic TP DAILY [facility] Last Admin: 06/22/17 18:12 Dose: Not Given Nifedipine (Procardia Xl -) 30 mg PO DAILY [facility] Last Admin: 06/23/17 09:02 Dose: 30 mg Oxycodone HCl (Roxicodone -) 10 mg PO Q6H PRN PRN Reason: PAIN LEVEL 6-10 Last Admin: 06/23/17 05:54 Dose: 10 mg Ranitidine HCl (Zantac -) 150 mg PO DAILY [facility] Last Admin: 06/23/17 09:02 Dose: 150 mg Sevelamer Carbonate (Renvela -) 1,600 mg PO TIDCM [facility] Last Admin: 06/23/17 12:16 Dose: 1,600 mg - Objective Vital Signs: Vital Signs Temperature 98.4 F 06/23/17 09:40 Pulse Rate 86 06/23/17 11:45 Respiratory Rate 18 06/23/17 11:45 Blood Pressure 177/108 06/23/17 11:45 O2 Sat by Pulse Oximetry (%) 100 06/22/17 21:00 Constitutional: Yes: No Distress, Calm Cardiovascular: Yes: Regular Rate and Rhythm Respiratory: Yes: Regular, CTA Bilaterally Gastrointestinal: Yes: Normal Bowel Sounds, Soft Musculoskeletal: Yes: WNL Extremities: Yes: Other Wound/Incision: Yes: Dressing Dry and Intact Neurological: Yes: Alert, Oriented Psychiatric: Yes: Alert, Oriented Labs: CBC, BMP 06/23/17 09:45 06/23/17 09:45 - ....Imaging MRI: Report Reviewed, Image Reviewed Assessment/Plan Problem List - Problems (1) Foot infection Code(s): L08.9 - LOCAL INFECTION OF THE SKIN AND SUBCUTANEOUS TISSUE, UNSP (2) Diabetes mellitus, insulin dependent (IDDM), uncontrolled Code(s): E10.65 - TYPE 1 DIABETES MELLITUS WITH HYPERGLYCEMIA (3) Diabetic foot infection Code(s): E11.69 - TYPE 2 DIABETES MELLITUS WITH OTHER SPECIFIED COMPLICATION; L08.9 - LOCAL INFECTION OF THE SKIN AND SUBCUTANEOUS TISSUE, UNSP (4) History of pulmonary embolus (PE) Code(s): Z86.711 - PERSONAL HISTORY OF PULMONARY EMBOLISM (5) Open wound of foot Code(s): S91.309A - UNSPECIFIED OPEN WOUND, UNSPECIFIED FOOT, INITIAL ENCOUNTER (6) Pulmonary embolism Code(s): I26.99 - OTHER PULMONARY EMBOLISM WITHOUT ACUTE COR PULMONALE Qualifiers: Pulmonary embolism type: other Chronicity: chronic Acute cor pulmonale presence: without acute cor pulmonale Qualified Code(s): I27.82 - Chronic pulmonary embolism (7) Dialysis patient Code(s): Z99.2 - DEPENDENCE ON RENAL DIALYSIS (8) ESRD (end stage renal disease) on dialysis Code(s): N18.6 - END STAGE RENAL DISEASE; Z99.2 - DEPENDENCE ON RENAL DIALYSIS (9) HTN (hypertension) Code(s): I10 - ESSENTIAL (PRIMARY) HYPERTENSION Assessment/Plan 26 y.o. female with PMH of IDDM, ESRD on HD, PE, Rt foot plantar abscess/ bacteremia +MRSA s/p I+D s/p course of Vancomycin admitted with c/o SOB and missed last HD. Rt foot nonhealing plantar wound, without purulent drainage or erythema. mri result noted can stop vanco can switch to oral clinda for another 5 days 300 mg every 8 hourly
[2017-06-23] MEDS ORDERED: ALBUTEROL SO4 2.5/IPRATROPIUM 0.5 INH SOL 3 ML VIAL.NEB. NEB ONE (13:24)
--- NOTE | 2017-06-23 14:46 | PN ---
Teaching Attending Note Name of Resident: Brayan Buckley ATTENDING PHYSICIAN STATEMENT I saw and evaluated the patient. I reviewed the resident's note and discussed the case with the resident. I agree with the resident's findings and plan as documented. SUBJECTIVE: no fever or chills, has no abd pain , no SOB . no pain in fot . OBJECTIVE: NAD , AAOx3 CV: RRR LUngs: CTAB ext: non pitting edema on both legs. R foot with plantar wound/ulcer with granulating tissue , no discharge , and no surrounding erythema ASSESSMENT AND PLAN: 26 y/o lady with HTN , ESRD , DM I, , h/o MRSA bacteremia who presented with ulcer on plantar aspect of R foot . 1- Infected ulcer on plantar R foot . wound cx with no MRSA . s/p vanco , ;last dose with HD today. case d/w Dr. Rodrigues , switch to clinda x 5 more days f/u with podiatry . MRI reviewed, no OM but bone marrow edema , she might need MRI of foot in 1 week after f/u with podiatry , but likely it is due to stress reactin wound care 2- ESRD : on HD . 3- Dm : Levemir and SSI 4- HTN:cont her home clonidine ( confirmed with pharmacy 0.6 mg TID ) , nifedipine, HZN, losartan, and labetalol Dispo : Dc home today with VNS .
--- NOTE | 2017-06-23 20:35 | DS ---
Physical Exam: SUBJECTIVE: Patient seen and examined at bedside. Patient feels well today, no new complaints. For HD today. OBJECTIVE: Vital Signs Period Temp Pulse Resp BP Sys/Ames Pulse Ox Last 24 Hr 97.6 F-98.4 F 80-95 18-20 122-206/70-121 96-100 PHYSICAL EXAM GENERAL: The patient is awake, alert, and fully oriented, in no acute distress. LUNGS: Breath sounds equal, clear to auscultation bilaterally, no wheezes, no crackles, no accessory muscle use. HEART: Regular rate and rhythm, S1, S2 without murmur, rub or gallop. ABDOMEN: Soft, nontender, nondistended, normoactive bowel sounds, no guarding, no rebound, no hepatosplenomegaly, no masses. EXTREMITIES: 2+ pulses, warm, well-perfused, no edema. NEUROLOGICAL: Cranial nerves II through X grossly intact. Normal speech, gait not observed. SKIN: Warm, dry, normal turgor, no rashes or lesions noted. The ulcer on the sole of her foot looks well debrided and free of erythema, fluctuance or purulence. LABS Laboratory Results - last 24 hr 06/22/17 06/23/17 06/23/17 21:01 02:11 05:50 WBC RBC Hgb Hct MCV MCH MCHC RDW Plt Count MPV Sodium Potassium Chloride Carbon Dioxide Anion Gap BUN Creatinine POC Glucometer 287 215 236 Random Glucose Calcium Phosphorus Random Vancomycin 06/23/17 06/23/17 06/23/17 09:45 09:45 09:45 WBC 6.1 RBC 3.23 L Hgb 9.0 L Hct 28.1 L MCV 86.8 MCH 27.8 MCHC 32.0 RDW 18.4 H Plt Count 254 MPV 9.5 Sodium 136 Potassium 4.0 Chloride 98 Carbon Dioxide 23 Anion Gap 15 BUN 61 H D Creatinine 5.1 H POC Glucometer Random Glucose 127 H Calcium 8.0 L Phosphorus 5.6 H Random Vancomycin 12.732 06/23/17 06/23/17 12:15 16:50 WBC RBC Hgb Hct MCV MCH MCHC RDW Plt Count MPV Sodium Potassium Chloride Carbon Dioxide Anion Gap BUN Creatinine POC Glucometer 182 267 Random Glucose Calcium Phosphorus Random Vancomycin HOSPITAL COURSE: Date of Admission:06/18/17 The patient is a 26 year old female, with a significant past medical history of HTN, DM, ESRD (dialysis on Wed, Wed, Wednesday), who presented to the emergency department c/o SOB. The patient stated that she was on her way to HD on the day of admission, but was feeling so short of breath that she decided to come to the ER instead. Her shortness of breath was also associated with chest tightness. Patient had a recent admission (d/c 06/05/17) for infected diabetic foot ulcer and was receiving vancomycin with her dialysis. In the ED, the patient was found to have a glucose of 252, an anion gap of 18 and a lactic acidosis to 2.4. A CXR showed bibasilar infiltrates. A foot Xray showed soft tissue swelling without fracture. She was admitted for the management of fluid overload and management of her hyperglycemia. ID was consulted. A blood culture showed no growth and a wound culture grew normal marcus. She was treated with vancomycin and zosyn. Nephrology was consulted. The patient was dialyzed on her home regimen. Podiatry was consulted. The patient's diabetic foot ulcer was debrided. An MRI of the affected foot was negative for osteomyelitis. The patient's hyperglycemia was treated with Levemir and a novolog sliding scale. She improved clinically with insulin and HD. Her lactic acidosis resolved and her anion gap closed. The patient was discharged on clindamycin 600mg Q8H for 5 days. She was instructed to follow up with her primary care physician and her blower installer within one week of discharge. Date of Discharge: 06/23/17 Minutes to complete discharge: 60 Discharge Summary Reason For Visit: DIABETIC FOOT ULCER\SOB Current Active Problems Diabetic foot infection (Acute) Fluid overload (Acute) Diabetes mellitus, insulin dependent (IDDM), uncontrolled (Chronic) Dialysis patient (Chronic) ESRD (end stage renal disease) on dialysis (Chronic) HTN (hypertension) (Chronic) Condition: Improved - Instructions Diet, Activity, Other Instructions: Ms. Sawyer, you have been treated for a diabetic foot ulcer and high glucose levels. MRI was negative for bone infection. We are stopping the vancomycin antibiotic. You will start antibiotic clindamycin, taking 300mg tablets every 8 hours , for five days. Please continue with your dialysis and adhere to diabetic friendly diet. We would recommend continuing your levemir regimen to 30U BID with sliding scale as prescribed by your primary. Please take a log of your sugars morning, night and before each meal to take to your primary. We have also increased one of your blood pressure medications, hydralazine to 100mg three times a day. Foot ulcer care: continue bactroban for local wound care and change three times per week. You have been provided with home nursing services to assist in wound care. Please follow up with podiatry at the wound healing center. Please see your primary and blower installer with in one week. you might need repeat MRI of foot in week If you experience any worsening of symptoms, including altered mental status, worsening shortness of breath, fever, chills, please return to the emergency room. Referrals: Devan Dubon MD [Staff Physician] - Nathan Vo MD [Staff Physician] - Disposition: HOME - Home Medications Comprehensive Discharge Medication List: Ambulatory Orders Sevelamer Carbonate [Renvela -] 1,600 mg PO TIDCM #60 tab 07/14/16 Losartan Potassium [Cozaar -] 100 mg PO DAILY 12/21/16 Labetalol HCl [Normodyne -] 400 mg PO TID #60 tablet 12/26/16 Hydrocodone/Acetaminophen [Vicodin Hp 10-300 mg Tablet] 1 tab PO Q6H PRN Insulin Sliding Scale [Novolog Vial Sliding Scale -] 0 vial SQ ACHS 06/03/17 Nifedipine ER [Procardia XL -] 30 mg PO DAILY 06/03/17 Apixaban [Eliquis -] 5 mg PO BID tablet 06/04/17 Insulin Detemir [Levemir Flextouch] 30 unit SQ BID 06/21/17 Clonidine HCl [Catapres] 0.6 mg PO TID 06/22/17 Calcium (Oyster Shell) [Os-Gilberto 500MG -] 500 mg PO DAILY tablet 06/23/17 Clindamycin [Cleocin -] 600 mg PO Q8H 5 Days #45 capsule 06/23/17 Docusate Sodium [Colace -] 100 mg PO Q12H PRN capsule 06/23/17 Mupirocin Ointment [Bactroban 2% Ointment -] 1 applic TP DAILY 30 Days #1 applic 06/23/17 Ranitidine [Zantac -] 150 mg PO DAILY tablet 06/23/17 hydrALAZINE HCL [Apresoline -] 100 mg PO TID 30 Days #60 tablet 06/23/17 This patient is new to me today: No Emergency Visit: Yes ED Registration Date: 06/18/17 Care time: The patient presented to the Emergency Department on the above date and was hospitalized for further evaluation of their emergent condition. Critical Care patient: No - Discharge Referral Referred to [facility] No
[2017-06-23] MEDS: CLINDAMYCIN HCL 150 MG CAPSULE (FP) PO SCH ×2 (21:08→23:42)
[2017-06-24] MEDS: CLINDAMYCIN HCL 150 MG CAPSULE (FP) PO SCH ×2 (05:27→14:01)
[2017-06-24] MEDS: hydrALAZINE HCL 50 MG TABLET (FP) PO SCH ×2 (05:27→14:01)
[2017-06-24] MEDS: cloNIDine HCL 0.1 MG TABLET PO SCH ×3 (05:27→14:02)
[2017-06-24] MEDS: LABETALOL HCL 200 MG TABLET (FP) PO SCH ×2 (05:27→14:01)
[2017-06-24] MEDS: oxyCODONE HCL 5 MG TABLET PO PRN ×2 (05:30→12:07)
[2017-06-24] MEDS: INSULIN DETEMIR 100 UNITS/ML MDV SQ SCH (06:09)
[2017-06-24] MEDS: INSULIN SLIDING SCALE (NOVOLOG) 1 VIAL SQ SCH ×2 (06:10→11:37)
[2017-06-24] MEDS: SEVELAMER CARBONATE 800 MG TAB (FP) PO SCH ×2 (08:26→12:02)
[2017-06-24] MEDS: RANITIDINE HCL 150 MG TABLET (FP) PO SCH (09:28)
[2017-06-24] MEDS: LOSARTAN POTASSIUM 50 MG TABLET (FP) PO SCH (09:28)
[2017-06-24] MEDS: CALCIUM (OYSTER SHELL) 500 MG TABLET (FP) PO SCH (09:29)
[2017-06-24] MEDS: APIXABAN 5 MG TABLET PO SCH (09:29)
[2017-06-24] MEDS: NIFEdipine E.R. 30 MG TABLET (FP) PO SCH (09:29)
[2017-06-24] MEDS ORDERED: cloNIDine HCL 0.1 MG TABLET PO SCH (10:00)
--- NOTE | 2017-06-24 12:48 | PN ---
Teaching Attending Note Name of Resident: Brayan Buckley ATTENDING PHYSICIAN STATEMENT I saw and evaluated the patient. I reviewed the resident's note and discussed the case with the resident. I agree with the resident's findings and plan as documented. SUBJECTIVE: no fever or chills, no SOB did not leave yesterday during snow storm OBJECTIVE: NAD , AAOx3 CV: RRR Lungs: CTAB ext: non pitting edema on both legs. R foot wound was not unwrapped today ASSESSMENT AND PLAN: 26 y/o lady with HTN , ESRD , DM I, , h/o MRSA bacteremia who presented with ulcer on plantar aspect of R foot . 1- Infected ulcer on plantar R foot. wound cx with no MRSA . no OM on MRI s/p vanco ,last dose with HD yesterday cont clinda x 5 more days f/u with podiatry. she might need MRI of foot in 1 week after f/u with podiatry , but likely it is due to stress reaction wound care 2- ESRD: on HD . 3- Dm: Levemir and SSI 4- HTN:BP was elevate dlast night . pharmacy was called and confirmed her clonidine dose ( 0.6 mg not 0.3 TID ) . placed her on correct dose today and discharged her on correct dose .cont nifedipine, HZN, losartan, and labetalol dispo : home today .
[2017-06-24 14:03] VITALS: BP 160/96; PULSE 85; TEMP 98.2
--- NOTE | 2017-06-24 14:19 | PN ---
Progress Note, Physician History of Present Illness: stable no new issues - Current Medication List Current Medications: Active Medications Acetaminophen (Tylenol -) 325 mg PO Q6H PRN PRN Reason: PAIN LEVEL 6-10 Last Admin: 06/22/17 15:01 Dose: 325 mg Apixaban (Eliquis -) 5 mg PO BID [facility] Last Admin: 06/24/17 09:29 Dose: 5 mg Calcium Carbonate (Os-Gilberto 500mg -) 500 mg PO DAILY [facility] Last Admin: 06/24/17 09:29 Dose: 500 mg Clindamycin HCl (Cleocin -) 300 mg PO TID [facility] Last Admin: 06/24/17 14:01 Dose: 300 mg Clonidine (Catapres -) 0.6 mg PO TID [facility] Last Admin: 06/24/17 14:02 Dose: 0.6 mg Diphenhydramine HCl (Benadryl -) 25 mg PO HS PRN PRN Reason: INSOMNIA Last Admin: 06/23/17 01:22 Dose: 25 mg Docusate Sodium (Colace -) 100 mg PO Q12H PRN PRN Reason: CONSTIPATION Hydralazine HCl (Apresoline -) 100 mg PO TID [facility] Last Admin: 06/24/17 14:01 Dose: 100 mg Insulin Aspart (Novolog Vial Sliding Scale -) 1 vial SQ ACHS [facility] PRN Reason: Protocol Last Admin: 06/24/17 11:37 Dose: 4 units Insulin Detemir (Levemir Vial) 20 units SQ BID@0700,2200 [facility] Last Admin: 06/24/17 06:09 Dose: Not Given Labetalol HCl (Normodyne -) 400 mg PO TID [facility] Last Admin: 06/24/17 14:01 Dose: 400 mg Losartan Potassium (Cozaar -) 100 mg PO DAILY [facility] Last Admin: 06/24/17 09:28 Dose: 100 mg Mupirocin (Bactroban 2% Ointment -) 1 applic TP DAILY [facility] Last Admin: 06/23/17 09:30 Dose: 1 applic Nifedipine (Procardia Xl -) 30 mg PO DAILY [facility] Last Admin: 06/24/17 09:29 Dose: 30 mg Oxycodone HCl (Roxicodone -) 10 mg PO Q6H PRN PRN Reason: PAIN LEVEL 6-10 Last Admin: 06/24/17 12:07 Dose: 10 mg Ranitidine HCl (Zantac -) 150 mg PO DAILY [facility] Last Admin: 06/24/17 09:28 Dose: 150 mg Sevelamer Carbonate (Renvela -) 1,600 mg PO TIDCM [facility] Last Admin: 06/24/17 12:02 Dose: 1,600 mg - Objective Vital Signs: Vital Signs Temperature 98.2 F 06/24/17 14:01 Pulse Rate 85 06/24/17 14:01 Respiratory Rate 19 06/24/17 14:01 Blood Pressure 160/96 06/24/17 14:01 O2 Sat by Pulse Oximetry (%) 97 06/23/17 21:00 Constitutional: Yes: No Distress, Calm Cardiovascular: Yes: Regular Rate and Rhythm Respiratory: Yes: Regular, CTA Bilaterally Gastrointestinal: Yes: Normal Bowel Sounds, Soft Musculoskeletal: Yes: Other Extremities: Yes: Other Wound/Incision: Yes: Dressing Dry and Intact Neurological: Yes: Alert, Oriented Psychiatric: Yes: Alert Labs: CBC, BMP 06/23/17 09:45 06/23/17 09:45 Assessment/Plan Problem List - Problems (1) Foot infection Code(s): L08.9 - LOCAL INFECTION OF THE SKIN AND SUBCUTANEOUS TISSUE, UNSP (2) Diabetes mellitus, insulin dependent (IDDM), uncontrolled Code(s): E10.65 - TYPE 1 DIABETES MELLITUS WITH HYPERGLYCEMIA (3) Diabetic foot infection Code(s): E11.69 - TYPE 2 DIABETES MELLITUS WITH OTHER SPECIFIED COMPLICATION; L08.9 - LOCAL INFECTION OF THE SKIN AND SUBCUTANEOUS TISSUE, UNSP (4) History of pulmonary embolus (PE) Code(s): Z86.711 - PERSONAL HISTORY OF PULMONARY EMBOLISM (5) Open wound of foot Code(s): S91.309A - UNSPECIFIED OPEN WOUND, UNSPECIFIED FOOT, INITIAL ENCOUNTER (6) Pulmonary embolism Code(s): I26.99 - OTHER PULMONARY EMBOLISM WITHOUT ACUTE COR PULMONALE Qualifiers: Pulmonary embolism type: other Chronicity: chronic Acute cor pulmonale presence: without acute cor pulmonale Qualified Code(s): I27.82 - Chronic pulmonary embolism (7) Dialysis patient Code(s): Z99.2 - DEPENDENCE ON RENAL DIALYSIS (8) ESRD (end stage renal disease) on dialysis Code(s): N18.6 - END STAGE RENAL DISEASE; Z99.2 - DEPENDENCE ON RENAL DIALYSIS (9) HTN (hypertension) Code(s): I10 - ESSENTIAL (PRIMARY) HYPERTENSION Assessment/Plan 26 y.o. female with PMH of IDDM, ESRD on HD, PE, Rt foot plantar abscess/ bacteremia +MRSA s/p I+D s/p course of Vancomycin admitted with c/o SOB and missed last HD. Rt foot nonhealing plantar wound, without purulent drainage or erythema. continue clinda patient to follow wiht primary and nephro rest ct current mgmt
--- NOTE | 2017-06-24 15:44 | PN ---
Progress Note (short form) - Note Progress Note: Renal follow up for ESRD and volume overload Pt seen and examined at the bedside awake and alert no acute complaints for discharge home today denies any sob, abd pain, fever, chills Vital Signs Temperature 98.2 F 06/24/17 14:01 Pulse Rate 85 06/24/17 14:01 Respiratory Rate 19 06/24/17 14:01 Blood Pressure 160/96 06/24/17 14:01 O2 Sat by Pulse Oximetry (%) 96 06/24/17 09:00 Intake & Output 06/21/17 06/22/17 06/23/17 06/24/17 23:59 23:59 23:59 23:59 Intake Total 360 373 510 460 Balance 360 373 510 460 Weight 73.255 kg NAD awake and alert RRR CTA soft NT 2+ LE edema CBC, BMP 06/23/17 09:45 06/23/17 09:45 26 year old woman with PMhx of ESRD on HD (non-complaint with fluid and dietary restriction), IDDM, Hypertension, PE, Recent diagnosed LE wound who presented with complaints of SOB and open blister on left foot. #ESRD on HD with fluid overload s/p dialysis yesterday no acute indication for THREAD CUTTER today advised fluid restriction even on discharge to resume dialysis at [facility] tomorrow #LE wound MRI w/o evidence of osteomylitis to finish course of oral abx as per ID #Hypertension continue Losartan, Labetalol, Nifedpine, Hydralazine #CKD related Anemia Will continue MACIE with HD Discussed importance of compliance with dietary restrictions, medications and dialysis with the patient. Nathan Vo DO
== END 2017-06-24 15:41 | disposition home or self-care (01) | DRG 623 ==
LOC: JER 14:56 → JERBED 17:58 → J4S 06-19 00:51
PROVIDERS: ADMIT Internal Medicine; ATTEND Internal Medicine
PROC: 0JBQ0ZZ Excision of Right Foot Subcutaneous Tissue and Fascia, Open Approach (ICD-10-PCS; principal; 2017-06-22)
PROC: 5A1D70Z Performance of Urinary Filtration, Intermittent, Less than 6 Hours Per Day (ICD-10-PCS; 2017-06-23)
DX: E10.621 Type 1 diabetes mellitus with foot ulcer (principal); J96.11 Chronic respiratory failure with hypoxia; L97.418 Non-pressure chronic ulcer of right heel and midfoot with other specified severity; I13.2 Hypertensive heart and chronic kidney disease with heart failure and with stage 5 chronic kidney disease, or end stage renal disease; B95.7 Other staphylococcus as the cause of diseases classified elsewhere; B37.2 Candidiasis of skin and nail; E10.65 Type 1 diabetes mellitus with hyperglycemia; N18.6 End stage renal disease; Z99.2 Dependence on renal dialysis; E10.22 Type 1 diabetes mellitus with diabetic chronic kidney disease; E87.70 Fluid overload, unspecified; D63.1 Anemia in chronic kidney disease; Z99.81 Dependence on supplemental oxygen; Z86.711 Personal history of pulmonary embolism; Z79.4 Long term (current) use of insulin; Z91.14 Patient's other noncompliance with medication regimen; D15.1 Benign neoplasm of heart; Z86.718 Personal history of other venous thrombosis and embolism
CPT/HCPCS: 36415; 71045-TC-FY; 73630-TC-RT-FY; 73718-TC; 80048; 80053; 82009; 82550; 82565; 82962; 83605; 83735; 83880; 84100; 84484; 84520; 84703; 85025; 85027; 85651; 86140; 86704; 86706; 86708; 87040; 87070; 87205; 87340; 93005; 93010; 94640; 99283-25; G0480; J0735; J0885

== ENCOUNTER 2017-07-12 19:24 | Emergency (ER) | payer OTHER ==
[2017-07-12 19:54] VITALS: BP 164/100; PULSE 83; TEMP 98.3; BMI 23.3
--- NOTE | 2017-07-12 23:16 | PDOC ---
History of Present Illness - General Chief Complaint: Pain Stated Complaint: PAIN Time Seen by Provider: 07/12/17 23:15 History Source: Patient Exam Limitations: No Limitations - History of Present Illness Initial Comments: 07/12/17 23:18 26y F hx of ESRD (MWF, sp dialysis), anemia, htn, dvt, PE (on coumadin), IDDM, myositis, osteomyelitis, presents to the ED for R shoulder discomfort for the past several weeks. pt notes she has a mass in her R clavical as well that she has never noticed before. pt denies any recent trauma, falls, fever/chills, cough, sob. Pt notes that when she lifts her arm, it exacerbataes the pain and radiates u pfrom her shoulder/clavical up to her neck. pt denie sany cp, back pain. this has been going on for several weeks. NKDA Surgical: L AV fistula PMD: Dr. Alvarado It Technical Support Specialist: Dr. Vo Past History - Past Medical History Allergies/Adverse Reactions: Allergies Allergy/AdvReac Type Severity Reaction Status Date / Time No Known Drug Allergies Allergy Verified 07/12/17 19:54 Home Medications: Ambulatory Orders Sevelamer Carbonate [Renvela -] 1,600 mg PO TIDCM #60 tab 07/14/16 Losartan Potassium [Cozaar -] 100 mg PO DAILY 12/21/16 Labetalol HCl [Normodyne -] 400 mg PO TID #60 tablet 12/26/16 Insulin Sliding Scale [Novolog Vial Sliding Scale -] 0 vial SQ ACHS 06/03/17 Apixaban [Eliquis -] 5 mg PO BID tablet 06/04/17 Insulin Detemir [Levemir Flextouch] 30 unit SQ BID 06/21/17 Calcium (Oyster Shell) [Os-Gilberto 500MG -] 500 mg PO DAILY tablet 06/23/17 Docusate Sodium [Colace -] 100 mg PO Q12H PRN capsule 06/23/17 Mupirocin Ointment [Bactroban 2% Ointment -] 1 applic TP DAILY 30 Days #1 applic 06/23/17 Ranitidine [Zantac -] 150 mg PO DAILY tablet 06/23/17 hydrALAZINE HCL [Apresoline -] 100 mg PO TID 30 Days #60 tablet 06/23/17 Nifedipine ER [Procardia XL -] 90 mg PO DAILY tab.er.[id number] 06/28/17 cloNIDine HCL [Catapres -] 0.3 mg PO TID 06/28/17 Miscellaneous Medical Supply [Outpatient Order] 1 each ASDIR #1 misc Oxycodone HCl [Oxycontin] 10 mg PO PRN PRN 07/12/17 Anemia: Yes Asthma: No Cancer: No Cardiac Disorders: No CVA: No COPD: No CHF: No DVT: No Dementia: No Diabetes: Yes (15 yrs Insulin dependent) Dialysis: Yes (M/W/F) Disorders: Yes (esrd) HTN: Yes Hypercholesterolemia: No Kidney Stones: (ESRD, Dialysis Mon, W, F, Left arm Fistula) Liver Disease: No Seizures: Yes (Several yrs ago, no medication) Thyroid Disease: No - Surgical History Abdominal Surgery: No Appendectomy: No Cardiac Surgery: Yes (myxoma removed 2013) Cholecystectomy: Yes Lung Surgery: No Neurologic Surgery: No Orthopedic Surgery: Yes (foot sx x2) - Immunization History Immunization Up to Date: Yes - Suicide/Smoking/Psychosocial Hx Smoking Status: No Smoking History: Never smoked Have you smoked in the past 12 months: No Number of Cigarettes Smoked Daily: 10 Information on smoking cessation initiated: No Hx Alcohol Use: No Drug/Substance Use Hx: No Substance Use Type: None Hx Substance Use Treatment: No Review of Systems - Review of Systems Able to Perform ROS?: Yes Comments:: 07/12/17 23:55 Constitutional - no reported Fever, Chills, HEENT: no reported vision changes, sore throat Respiratory: no reported cough, sob, hemoptysis Cardiac: no reported chest pain, palpitations, light headedness, leg swelling Abd/GI: no reported abd pain, nausea, vomiting, blood per rectum, melena, diarrhea : no reported dysuria, frequency, discharge Musculskelatal - +shoulder pain, +clavicular mass no reported back pain, joint swelling skin - no reported bruising, erythema, rash neurological: no reported headache, numbness, focal weakness, tingling, ataxia, hematologic: no reported anemia, easy bruising, easy bleeding *Physical Exam - Vital Signs Last Vital Signs Temp Pulse Resp BP Pulse Ox 98.3 F 83 18 164/100 98 07/12/17 19:48 07/12/17 19:48 07/12/17 19:48 07/12/17 19:48 07/12/17 19:48 - Physical Exam Comments: 07/12/17 23:56 GENERAL: The patient is awake, alert, and fully oriented, Nontoxic - in no acute distress. HEAD: Normocephalic, atraumatic. EYES: extraocular movements intact, sclera anicteric, conjunctiva clear. ENT: Normal voice, Moist mucous membranes. NECK: Normal range of motion, supple, no focal midline or lateral tenderness LUNGS: Breath sounds equal, clear to auscultation bilaterally. No wheezes, no rhonchi, no rales. Mild fullness in the R clavicular fossa, +prominence in the medial aspect of the R clavical, no focal tendenress HEART: Regular rate and rhythm, normal S1 and S2 without murmur, rub or gallop. ABDOMEN: Soft, nontender, normoactive bowel sounds. No guarding, no rebound. . No CVA tenderness EXTREMITIES: fistula in the LUE, NEUROLOGICAL: No facial assymetry, Normal speech, PSYCH: Normal mood, normal affect. SKIN: Warm, Dry, normal turgor, LYMPH: No focal lymphadenpahty palapble iN L clavicluar fossa, b/l axxilla Medical Decision Making - Medical Decision Making 07/12/17 23:57 26y F presnets with 2 weeks of L shoulder pain that worsens when she uses her L arm. no trauma or neurologic symptoms. on exam pt has fullness to the supclaviulcar fossa and a prominent mass on the L clavical CT chest labs pt declines workup states she would prefer to go home and come back for another workup discussed risk of missed/delayed diagnosis but pt agrees and states she will come back anothe rtime or go to her pmd Patient is alert and oriented, and expressed that they would like to leave AGAINST MEDICAL ADVICE. I discussed with them the risks of leaving include , delayed/missed diagnosis, permanent disability. Patient states he would like to leave because she is tired of waiting and had a full day of dialysis I believe that the patient understands our discussion and is capable of making an informed decision about leaving against medical advice. I also discussed with the patient that they may return at any time to complete their workup. *DC/Admit/Observation/Transfer Diagnosis at time of Disposition: Mass in chest Shoulder pain Qualifiers: Chronicity: chronic Laterality: right Qualified Code(s): M25.511 - Pain in right shoulder - Discharge Dispostion Disposition: AGAINST MEDICAL ADVICE Condition at time of disposition: Guarded Admit: No - Referrals Referrals: Andrea Bermudez MD [Staff Physician] - - Patient Instructions Additional Instructions: You elected to leave against medical advice. Please be aware you can return at any time to complete your workup. Otherwise follow u pwith your primary care doctor. - Post Discharge Activity
== END 2017-07-13 | disposition left against medical advice (07) ==
LOC: JER 19:24
DX: R22.2 Localized swelling, mass and lump, trunk (principal); I13.11 Hypertensive heart and chronic kidney disease without heart failure, with stage 5 chronic kidney disease, or end stage renal disease; E11.22 Type 2 diabetes mellitus with diabetic chronic kidney disease; N18.6 End stage renal disease; N17.8 Other acute kidney failure; Z99.2 Dependence on renal dialysis; Z79.4 Long term (current) use of insulin; M86.9 Osteomyelitis, unspecified; Z86.718 Personal history of other venous thrombosis and embolism; Z86.711 Personal history of pulmonary embolism; Z79.01 Long term (current) use of anticoagulants; Z86.69 Personal history of other diseases of the nervous system and sense organs
CPT/HCPCS: 99281-25

== ENCOUNTER 2017-07-30 05:06 | Inpatient (IN) | payer OTHER ==
--- NOTE | 2017-07-30 05:31 | PDOC ---
History of Present Illness - General Chief Complaint: Diarrhea Stated Complaint: DIARRHEA Time Seen by Provider: 07/30/17 05:27 - History of Present Illness Initial Comments: 07/30/17 05:37 The patient is a 26 year old female with a history of HTN, IDDM, ESRD on dialysis (MWF) who presents for evaluation of diarrhea. The patient reports onset of diarrhea beginning 6 hours ago with some associated generalized weakness prompting her presentation to the ED for evaluation. The patient reports 6 episodes of diarrhea throughout the evening. The patient notes that she has been on antibiotics recently for her chronic right diabetic foot ulcer for which she follows with Dr. Dubon. She otherwise denies fevers, chills, SOB, chest pain, nausea, vomiting, abdominal pain, or changes with urination. Past History - Past Medical History Allergies/Adverse Reactions: Allergies Allergy/AdvReac Type Severity Reaction Status Date / Time No Known Drug Allergies Allergy Verified 07/30/17 05:30 Home Medications: Ambulatory Orders Sevelamer Carbonate [Renvela -] 1,600 mg PO TIDCM #60 tab 07/14/16 Losartan Potassium [Cozaar -] 100 mg PO DAILY 12/21/16 Labetalol HCl [Normodyne -] 400 mg PO TID #60 tablet 12/26/16 Insulin Sliding Scale [Novolog Vial Sliding Scale -] 0 vial SQ ACHS 06/03/17 Apixaban [Eliquis -] 5 mg PO BID tablet 06/04/17 Insulin Detemir [Levemir Flextouch] 17 unit SQ BID 06/21/17 Docusate Sodium [Colace -] 100 mg PO Q12H PRN capsule 06/23/17 Ranitidine [Zantac -] 150 mg PO DAILY tablet 06/23/17 hydrALAZINE HCL [Apresoline -] 100 mg PO TID 30 Days #60 tablet 06/23/17 cloNIDine HCL [Catapres -] 0.3 mg PO TID 06/28/17 Oxycodone HCl [Oxycontin] 10 mg PO PRN PRN 07/12/17 Calcium Carbonate [Calcium] mg PO ASDIR 07/30/17 Nifedipine ER [Procardia XL -] 30 mg PO DAILY 07/30/17 Anemia: Yes Asthma: No Cancer: No Cardiac Disorders: No CVA: No COPD: No CHF: No DVT: No Dementia: No Diabetes: Yes (15 yrs Insulin dependent) Dialysis: Yes (M/W/F) Disorders: Yes (esrd) HTN: Yes Hypercholesterolemia: No Kidney Stones: (ESRD, Dialysis Mon, W, F, Left arm Fistula) Liver Disease: No Seizures: Yes (Several yrs ago, no medication) Thyroid Disease: No - Surgical History Abdominal Surgery: No Appendectomy: No Cardiac Surgery: Yes (myxoma removed 2013) Cholecystectomy: Yes Lung Surgery: No Neurologic Surgery: No Orthopedic Surgery: Yes (foot sx x2) - Immunization History Immunization Up to Date: Yes - Suicide/Smoking/Psychosocial Hx Smoking Status: No Smoking History: Never smoked Have you smoked in the past 12 months: No Number of Cigarettes Smoked Daily: 10 Hx Alcohol Use: No Drug/Substance Use Hx: No Substance Use Type: None Hx Substance Use Treatment: No Review of Systems - Review of Systems Comments:: 07/30/17 05:56 Constitutional: Generalized Fatigue. No fevers, chills, malaise HEENT: No Rhinorrhea, nasal congestion, visual changes Cardiovascular: No chest pain, syncope, palpitations, lightheadedness Respiratory: No Cough, SOB, Hemoptysis, Gastrointestinal: Diarrhea. No Abdominal pain, Nausea, Vomiting, Constipation, Melena Genitourinary: No Dysuria, Frequency, Urgency, Hesitancy, Hematuria, Flank pain Musculoskeletal: No Myalgia, arthralgia Skin: Wound to the right foot. No rashes, itching, bruising, pallor Neurologic: No Headache, Dizziness, Numbness, Weakness, or Tingling Psychiatric: No Hallucinations. No SI or HI *Physical Exam - Physical Exam Comments: 07/30/17 05:58 General Appearance: Nourished. No Apparent Distress HEENT: EOMI, VI. No Pharyngeal Erythema, Tonsillar Exudate, Tonsillar Erythema Neck: No Cervical Lymphadenopathy Respiratory/Chest: Lungs Clear, Normal Breath Sounds. No Crackles, Rales, Rhonchi, Wheezing Cardiovascular: Regular Rhythm, Regular Rate. No Murmur, Gallops, Rubs Gastrointestinal/Abdominal: Normal Bowel Sounds, Soft. No Guarding, Rebound, Tenderness Musculoskeletal: No CVA Tenderness Extremity: 6cm by 1cm foul smelling foot ulcer with purulent drainage to the sole of the right foot. Warmth to the right lower extremity. Normal Capillary Refill Integumentary: Normal Color, Dry, Warm Neurologic: Fully Oriented, Alert, Normal Mood/Affect, Normal Response, Heart Score/ECG Review #1 ECG reviewed & interpreted by me at: 06:00 General ECG Interpretation: Sinus Rhythm, Normal Rate, Normal Intervals, No acute ischemic changes ED Treatment Course - LABORATORY CBC & Chemistry Diagram: 07/30/17 06:05 07/30/17 19:00 Medical Decision Making - Medical Decision Making 07/30/17 06:01 The patient is a 26 year old female with a history of HTN, IDDM, ESRD on dialysis (MWF) who presents for evaluation of diarrhea. Differential includes but is not limited to: Hyperglycemia, Sepsis, Infectious, Metabolic derangement. Given the patient's physical exam and chronic foot ulcer with recent antibiotic use, it is possible her diarrhea is due to cdiff. Given the patient's physical exam of the foot wound, we are concerned for worsening infection and possible sepsis. We will obtain a cbc, cmp, troponin, blood cultures, lactate, wound culture, chest plain film, ekg, acetone to evaluate further for possible etiologies. We will treat the patient with vancomycin and zosyn here in the ED and will continue to monitor and reassess. Likely admission due to the patient's foot ulcer. 07/30/17 07:00 Patient signed out to the day team pending lab results and likely admission. *DC/Admit/Observation/Transfer Diagnosis at time of Disposition: Hyperglycemia - Discharge Dispostion Condition at time of disposition: Fair - Referrals - Patient Instructions - Post Discharge Activity
--- NOTE | 2017-07-30 05:31 | PDOC ---
Attending Attestation - HPI HPI: 07/30/17 06:23 Patient is a 26 year old female with a significant past medical history of HTN, DM, ESRD (dialysis on Wed, Wed, Wednesday), pulmonary embolism, and on O2, who presents to the ED with complaints of diarrhea that began last night at midnight. Patient reports experiencing sudden onset of diarrhea that began at midnight at home, stating she experienced 7 episodes before prompting to come into the ED for further evaluation. Patient reports experiencing associated symptoms of generalized weakness stating, when it started, its like it sucked all the energy out of me. She reports having high blood sugar, stating she took 12 units of insulin prior to ED arrival. Denies chest pain, sob. Denies nausea, vomiting. Denies fever, chills. Denies dysuria, hematuria, Denies contact with sick individuals, out of state travelling. Denies any other symptoms. Allergies: NKDA Social history: Lives with mother. No alcohol. No illicit drugs. Surgical history: PMD: Dr.Tina Alvarado <Brown Arevalo - Last Filed: 07/30/17 06:23> - Resident Resident Name: Tae Mahmood - ED Attending Attestation I have performed the following: I have examined & evaluated the patient, The case was reviewed & discussed with the resident, I agree w/resident's findings & plan, Exceptions are as noted - Physicial Exam PE: GENERAL: Awake, alert, and fully oriented, in no acute distress HEAD: No signs of trauma EYES: PERRLA, EOMI, sclera anicteric, conjunctiva clear ENT: Auricles normal inspection, hearing grossly normal, nares patent, oropharynx clear without exudates. Moist mucosa NECK: Normal ROM, supple, no lymphadenopathy, JVD, or masses LUNGS: Breath sounds equal, clear to auscultation bilaterally. No wheezes, and no crackles HEART: Regular rate and rhythm, normal S1 and S2, no murmurs, rubs or gallops ABDOMEN: Soft, nontender, normoactive bowel sounds. No guarding, no rebound. No masses EXTREMITIES: Normal range of motion. No clubbing or cyanosis. No cords or tenderness. LUE with AV fistula, +thrill. R foot with [id number] wound with foul- smelling drainage on bandage. R foot warm to palpation. NEUROLOGICAL: Cranial nerves II through XII grossly intact. Normal speech, normal gait. Motor and sensation intact. SKIN: Warm, Dry, normal turgor, no rashes. - Medical Decision Making Pt with history of poorly controlled diabetes presenting with multiple episodes of diarrhea this morning. She notes that she was on antibiotics in the last month for a foot infection. On exam the foot is warm with malodorous drainage. Wound culture sent to lab. Will obtain rectal temp, blood cultures, lactate, in addition to basic labs. Likely admission. <Juana Urbina - Last Filed: 07/30/17 20:22>
[2017-07-30] MEDS ORDERED: SODIUM CHLORIDE 250 ML IV STA (05:35)
[2017-07-30] MEDS ORDERED: VANCOMYCIN 1,000 MG in DEXTROSE 5%-WATER - 250 ML IVPB ONE (05:49)
[2017-07-30] MEDS ORDERED: PIPERACILLIN/TAZOB 3.375 GM 3.375 GM in DEXTROSE 5%-WATER - 50 ML IVPB ONE (05:49)
[2017-07-30] MEDS ORDERED: PIPERACILLIN/TAZOB 3.375 GM 3.375 GM/50 ML BAG IVPB ONE (05:59)
[2017-07-30] MEDS ORDERED: VANCOMYCIN 1 GRAM (PRE-DOCKED) 1,000 MG/250 ML BAG IVPB ONE (05:59)
[2017-07-30 06:42] LABS: INR 1.12 (0.82-1.09); PROTHROMBIN TIME (PATIENT) 12.7 SEC (9.7-13.0)
[2017-07-30 06:45] LABS: ACTIVATED PTT 31.3 SECONDS (26.9-34.4)
[2017-07-30 06:46] LABS: ANION GAP 16 (8-16); BILIRUBIN,TOTAL 0.6 mg/dL (0.2-1.0); BLOOD UREA NITROGEN 43 mg/dL (7-18); CALCIUM 7.6 mg/dL (8.5-10.1); CHLORIDE 87 mmol/L (98-107); CO2 18 mmol/L (21-32); POTASSIUM 5.5 mmol/L (3.5-5.1); SGOT/AST 37 U/L (15-37); SGPT/ALT 21 U/L (12-78); TOT PROT 7.9 g/dl (6.4-8.2)
[2017-07-30 06:48] LABS: LIPASE 363 U/L (73-393)
[2017-07-30 06:53] LABS: GLUCOSE,RANDOM 1172 mg/dL (74-106)
[2017-07-30] MEDS ORDERED: INSULIN REGULAR HUMAN 100 UNITS/ML *VIAL IVPUSH ONE ×2 (06:53→11:08)
[2017-07-30 06:54] LABS: SODIUM 121 mmol/L (136-145)
[2017-07-30] MEDS ORDERED: INSULIN REGULAR 100 UNITS in SODIUM CHLORIDE 99 ML IVPB SCH (07:15)
--- NOTE | 2017-07-30 07:22 | PDOC ---
*Physical Exam - Vital Signs Last Vital Signs Temp Pulse Resp BP Pulse Ox 97.7 F 90 18 178/97 99 07/30/17 05:25 07/30/17 05:25 07/30/17 05:25 07/30/17 05:25 07/30/17 05:25 - Physical Exam General Appearance: Yes: Nourished Neck: positive: Trachea midline, Supple Respiratory/Chest: positive: Lungs Clear, Normal Breath Sounds Cardiovascular: positive: S1, S2 Vascular Pulses: Dorsalis-Pedis (R): 2+, Doralis-Pedis (L): 2+ Gastrointestinal/Abdominal: negative: Guarding, Rebound, Tenderness Musculoskeletal: negative: CVA Tenderness (R), CVA Tenderness (L) Extremity: positive: Normal Capillary Refill, Normal Inspection, Other (6 cm length x 0.5 cm width wound on R plantar surface, purulent discharge) Integumentary: positive: Normal Color, Dry, Warm Neurologic: positive: Fully Oriented, Alert ED Treatment Course - LABORATORY CBC & Chemistry Diagram: 07/30/17 06:05 07/30/17 15:10 - ADDITIONAL ORDERS Additional order review: Laboratory Results 07/30/17 07/30/17 06:05 06:05 PT with INR 12.70 INR 1.12 PTT (Actin FS) 31.3 Sodium 121 L* Potassium 5.5 H Chloride 87 L Carbon Dioxide 18 L Anion Gap 16 BUN 43 H Creatinine 5.0 H Creat Clearance w eGFR 10.38 Random Glucose 1172 H* Calcium 7.6 L Total Bilirubin 0.6 D AST 37 ALT 21 Total Protein 7.9 Albumin 3.0 L Lipase 363 - Medications Given in the ED: ED Medications Discontinued Medications Generic Name Dose Route Start Last Admin Trade Name Freq PRN Reason Stop Dose Admin Sodium Chloride 250 mls @ 250 mls/hr 07/30/17 05:35 07/30/17 06:20 Normal Saline - IV 07/30/17 06:34 Not Given ASDIR STA Vancomycin HCl 1,000 mg/ 250 mls @ 166.667 mls/hr 07/30/17 05:49 07/30/17 06: 55 Dextrose IVPB 07/30/17 07:18 166.667 mls/hr ONCE ONE Administration Protocol Piperacillin Sod/Tazobactam 50 mls @ 100 mls/hr 07/30/17 05:49 07/30/17 06:20 Sod 3.375 gm/ Dextrose IVPB 07/30/17 06:18 100 mls/hr ONCE ONE Administration Protocol Insulin Human Regular 6 units 07/30/17 06:53 07/30/17 07:01 Novolin R Vial *For Ivpush Or Iv Drip Only* IVPUSH 07/30/17 06:54 Not Given ONCE ONE Medical Decision Making - Medical Decision Making 07/30/17 07:24 Patient signed out by Dr. Mahmood (Resident) and Dr. Urbina (Attending) 26 year old female with a PMH of poorly controlled IDDM, ESRD (on HD) presents with hyperglycemia 1172 (corrected Na 138, K 5.5) + diabetic foot ulcer; insulin drip pending, patient started on empiric abx for presumed diabetic ulcer. 07/30/17 07:48 Urine Acetone 2+, no AG, insulin drip to be started after Vanc; judicious fluids as patient ESRD; consult to ID (Lilia) 07/30/17 07:51 Case d/w Dr. Leger - accepts for ICU admission; hospitalist service paged 07/30/17 08:25 Hospitalist medicine service @ bedside patient accepted for admission. Will continue to monitor while in ED. 07/30/17 08:27 Repeat BP 171/90. Patient tolerating PO intake. Counseled on POC. Will continue to monitor while in ED. *DC/Admit/Observation/Transfer Diagnosis at time of Disposition: Hyperglycemia - Discharge Dispostion Condition at time of disposition: Fair Admit: Yes - Referrals - Patient Instructions - Post Discharge Activity
[2017-07-30 07:36] LABS: BASO % 0.6 % (0-2.0); EOS % 0.2 % (0-4.5); HEMATOCRIT 31.4 % (32.4-45.2); HEMOGLOBIN 9.1 GM/dL (10.7-15.3); LYMPH % 5.9 % (8-40); MCH 27.7 pg (25.7-33.7); MEAN CELL VOLUME 95.5 fl (80-96); MEAN PLT VOLUME 9.6 fl (7.5-11.1); NEUT % 84.3 % (42.8-82.8); PLATELET COUNT 331 K/MM3 (134-434); RBC 3.28 M/mm3 (3.60-5.2); WHITE BLOOD COUNT 6.1 K/mm3 (4.0-10.0)
[2017-07-30] MEDS ORDERED: SODIUM POLYSTYRENE SULFONATE 15 GM/60 ML BOTTLE PO ONE (08:31)
[2017-07-30 08:32] LABS: ALK PHOS 1107 U/L (45-117)
[2017-07-30] MEDS ORDERED: oxyCODONE HCL 10 MG SUSTAINED ACTING TABLET PO PRN (08:36)
[2017-07-30] MEDS ORDERED: SODIUM CHLORIDE 1,000 ML IV SCH ×2 (08:45→15:15)
--- NOTE | 2017-07-30 09:41 | EKG ---
Test Reason : Blood Pressure : / mmHG Vent. Rate : 086 BPM Atrial Rate : 086 BPM P-R Int : 204 ms QRS Dur : 086 ms QT Int : 380 ms P-R-T Axes : 046 056 046 degrees QTc Int : 454 ms NORMAL SINUS RHYTHM POSSIBLE LEFT ATRIAL ENLARGEMENT POSSIBLE ANTERIOR INFARCT (CITED ON OR BEFORE 04-MAR-2017) ABNORMAL ECG WHEN COMPARED WITH ECG OF 25-JUN-2017 21:56, NO SIGNIFICANT CHANGE WAS FOUND Confirmed by FELICIA ZAIDI MD ([id number]) on 07/30/2017 9:41:16 AM Referred By: Confirmed By:FELICIA ZAIDI MD
--- NOTE | 2017-07-30 09:54 | HP ---
CHIEF COMPLAINT: Diarrhoea. PCP: None HISTORY OF PRESENT ILLNESS: The patient is a 26 year old female, with a significant past medical history of HTN, DM, ESRD (dialysis on Wed, Wed, Wednesday) , pulmonary embolism( 12/2016), and on home O2, who presents to the emergency department c/o Diarrhoea since last night. States that she had diarrhoea started last night, had 6 bowel movements, watery in consistency, no blood, no mucus, didnt eat from outside, no h/o contacts, no fever, chills and pain abdomen. Patient states that she gets HD on , , but she allso got HD yesterday because of fluid overload. Patient had a recent admission (d/c 06/05/17 ) for infected diabetic foot ulcer and recently completed an outpatient course of ABX. Patient has not seen Dr. Dubon for over month, She does dressing herself. Reports her wound was clean since yesterday. In ER investigations were done which shows patient has hyperglycemia with hyperkalemia. with positive ketones. Patient states that she is compliant with her meds and is taking her insulin as prescribed. Denies chest pain, sob, nausea, vomiting, lightheadedness, dizziness, palpitations, cough. ER course was notable for: (1)cbc, cmp, cxr (2)insulin drip Recent Travel: no PAST MEDICAL HISTORY: as above PAST SURGICAL HISTORY: Iandd of right foot Social History: Smoking: no Alcohol:no Drugs: no Family History:not relevent Allergies No Known Drug Allergies Allergy (Verified 07/30/17 05:30) HOME MEDICATIONS: Home Medications Medication Instructions Recorded Sevelamer Carbonate [Renvela -] 1,600 mg PO TIDCM #60 tab 07/14/16 Losartan Potassium [Cozaar -] 100 mg PO DAILY 12/21/16 Labetalol HCl [Normodyne -] 400 mg PO TID #60 tablet 12/26/16 Insulin Sliding Scale [Novolog 0 vial SQ ACHS 06/03/17 Vial Sliding Scale -] Apixaban [Eliquis -] 5 mg PO BID tablet 06/04/17 Insulin Detemir [Levemir Flextouch] 17 unit SQ BID 06/21/17 Docusate Sodium [Colace -] 100 mg PO Q12H PRN capsule 06/23/17 Ranitidine [Zantac -] 150 mg PO DAILY tablet 06/23/17 hydrALAZINE HCL [Apresoline -] 100 mg PO TID 30 Days #60 tablet 06/23/17 cloNIDine HCL [Catapres -] 0.3 mg PO TID 06/28/17 Oxycodone HCl [Oxycontin] 10 mg PO PRN PRN 07/12/17 Calcium Carbonate [Calcium] mg PO ASDIR 07/30/17 Nifedipine ER [Procardia XL -] 30 mg PO DAILY 07/30/17 REVIEW OF SYSTEMS CONSTITUTIONAL: Absent: fever, chills, diaphoresis, generalized weakness, malaise, loss of appetite, weight change HEENT: Absent: rhinorrhea, nasal congestion, throat pain, throat swelling, CARDIOVASCULAR: Absent: chest pain, syncope, palpitations, irregular heart rate, lightheadedness , peripheral edema RESPIRATORY: Absent: cough, shortness of breath, dyspnea with exertion, orthopnea, wheezing, stridor, hemoptysis GASTROINTESTINAL: Absent: abdominal pain, abdominal distension, nausea, vomiting, diarrhea, constipation, melena, hematochezia GENITOURINARY: doesn't make urine MUSCULOSKELETAL: pain in b/l lower extrmity chronic SKIN: Absent: rash, itching, pallor HEMATOLOGIC/IMMUNOLOGIC: Absent: easy bleeding, easy bruising, l ENDOCRINE: Absent: unexplained weight gain, unexplained weight loss NEUROLOGIC: Absent: headache, focal weakness or paresthesias, PSYCHIATRIC: Absent: anxiety, depression, PHYSICAL EXAMINATION Vital Signs - 24 hr 07/30/17 07/30/17 07/30/17 05:25 07:21 08:46 Temperature 97.7 F Pulse Rate 90 Pulse Rate [ 88 81 Left] Respiratory 18 Rate Blood Pressure 178/97 Blood Pressure 188/100 170/93 [Right] O2 Sat by Pulse 99 99 99 Oximetry (%) GENERAL: Awake, alert, and fully oriented, in no acute distress. HEAD: Normal with no signs of trauma. EARS, NOSE, THROAT: dry mucous membranes. NECK: Normal range of motion, supple without lymphadenopathy, JVD, or masses. LUNGS: Breath sounds equal, clear to auscultation bilaterally. No wheezes, and no crackles. No accessory muscle use. HEART: Regular rate and rhythm, normal S1 and S2 without murmur, ABDOMEN: Soft, nontender, not distended, normoactive bowel sounds, no guarding, no rebound, no masses. MUSCULOSKELETAL: Normal range of motion at all joints. No bony deformities or tenderness. UPPER EXTREMITIES: 2+ pulses, warm, well-perfused. No cyanosis. LOWER EXTREMITIES: b/l lower leg edematous, ulcer present on planter aspect of right foot, with slough and disharge, some granulation tissue present, margins whits, surrounding skin non eryhtematous, non tender. NEUROLOGICAL: Cranial nerves II-XII intact. Normal speech. PSYCHIATRIC: Cooperative.= SKIN: Warm, dry, Laboratory Results - last 24 hr 07/30/17 07/30/17 07/30/17 06:00 06:05 06:05 WBC 6.1 RBC 3.28 L Hgb 9.1 L Hct 31.4 L MCV 95.5 D MCH 27.7 MCHC 29.0 L RDW 18.0 H Plt Count 331 MPV 9.6 Neutrophils % 84.3 H Lymphocytes % 5.9 L Monocytes % 9.0 Eosinophils % 0.2 D Basophils % 0.6 PT with INR INR PTT (Actin FS) Sodium 121 L* Potassium 5.5 H Chloride 87 L Carbon Dioxide 18 L Anion Gap 16 BUN 43 H Creatinine 5.0 H Creat Clearance w eGFR 10.38 Random Glucose 1172 H* Lactic Acid 2.2 H* Calcium 7.6 L Total Bilirubin 0.6 D AST 37 ALT 21 Alkaline Phosphatase 1107 H Troponin I < 0.02 Total Protein 7.9 Albumin 3.0 L Lipase 363 Serum , Qual Acetone, Qual 07/30/17 07/30/17 07/30/17 06:05 06:05 06:05 WBC RBC Hgb Hct MCV MCH MCHC RDW Plt Count MPV Neutrophils % Lymphocytes % Monocytes % Eosinophils % Basophils % PT with INR 12.70 INR 1.12 PTT (Actin FS) 31.3 Sodium Potassium Chloride Carbon Dioxide Anion Gap BUN Creatinine Creat Clearance w eGFR Random Glucose Lactic Acid Calcium Total Bilirubin AST ALT Alkaline Phosphatase Troponin I Cancelled Total Protein Albumin Lipase Serum , Qual Acetone, Qual Positive moderate 2+ H 07/30/17 06:05 WBC RBC Hgb Hct MCV MCH MCHC RDW Plt Count MPV Neutrophils % Lymphocytes % Monocytes % Eosinophils % Basophils % PT with INR INR PTT (Actin FS) Sodium Potassium Chloride Carbon Dioxide Anion Gap BUN Creatinine Creat Clearance w eGFR Random Glucose Lactic Acid Calcium Total Bilirubin AST ALT Alkaline Phosphatase Troponin I Total Protein Albumin Lipase Serum , Qual Negative Acetone, Qual ASSESSMENT/PLAN: DKA with hyperkalemia. anion gap16, bicarb 18, BG 1172, vbg pending, acetone positive insulin drip o.1unit/kr/hr, is blood glucose does not fall by 50-70mg/dl in first hour , double IV or give sq bolus. IV fluid 50ml/hr, gentle hydration as patient goes into fluid overload. iF goes int fluid over load needs urgent HD. when BG comes below 250, change fluid to D5NS and decrease insulin to o.o5. Stop insulin drip when anion gap is closed. give long acting insulin before stopping drip. monitor serum potassium q4h BMP q4h BGM q1h. get vbg monitor serum potassium q4h. NPO for now. Hyperkalemia on insulin drip monitor q4h ekg nO tall T wave, P waves are present, qrs not widened, no sine waves hold losartan for hyperkalemia ESRD on HD M, W, F last HD yesterday nephrology consult start renvela and calcium. daily weight for fluid status HTN monitor started on home meds. hold losartan today, can be started tomorrow once potassium is normal. H/o DVT/PE in 12/2016 patient stopped elequis by her self in june, states the gets nose bleed. loco already took it for 6-7 months. will give her sq heparin for DVT prophylaxis. chronic Diabetic Foot ulcer with discharge. Last MRI done on 06/22 no osteo Daily dressing antibiotic vanco and zosyn given in ed. Xray foot to look for osteo get crp and esr. get wound culture. Diarrhoea stool studies wbs, culture, cdiff, ova and parasite gentle hydartion, loco looks dehydrated. hold docusate sodium fluid: NS 50ml/hr electrolyte: monitor in q4h nutrition: NPO for now DVT pro: heparin sq gi pro: not required Dispo: icu Visit type - Emergency Visit Emergency Visit: Yes ED Registration Date: 07/30/17 Care time: The patient presented to the Emergency Department on the above date and was hospitalized for further evaluation of their emergent condition. - New Patient This patient is new to me today: Yes Date on this admission: 07/30/17 - Critical Care Critical Care patient: Yes Total Critical Care Time (in minutes): 60 Critical Care Statement: The care of this patient involved high complexity decision making to prevent further life threatening deterioration of the patient 's condition and/or to evaluate & treat vital organ system(s) failure or risk of failure.
[2017-07-30] MEDS ORDERED: NIFEdipine E.R. 90 MG TABLET (FP) PO SCH ×3 (10:00→10:36)
[2017-07-30] MEDS ORDERED: LOSARTAN POTASSIUM 50 MG TABLET (FP) PO SCH (10:00)
[2017-07-30] MEDS ORDERED: HEPARIN NA (PORCINE) 5,000 UNITS/ML 1ML VIAL ONE (10:08)
[2017-07-30] MEDS ORDERED: RANITIDINE HCL 150 MG TABLET (FP) ONE (10:08)
[2017-07-30] MEDS ORDERED: oxyCODONE HCL 5 MG TABLET ONE (10:08)
[2017-07-30] MEDS: oxyCODONE HCL 5 MG TABLET PO PRN ×2 (10:22→20:31)
[2017-07-30] MEDS: HEPARIN NA (PORCINE) 5,000 UNITS/ML 1ML VIAL SQ SCH ×2 (10:23→21:47)
[2017-07-30] MEDS: RANITIDINE HCL 150 MG TABLET (FP) PO SCH (10:24)
[2017-07-30 10:40] LABS: MAGNESIUM 2.5 mg/dL (1.8-2.4); PHOSPHOROUS 4.4 mg/dL (2.5-4.9)
[2017-07-30 10:41] LABS: ANION GAP 13 (8-16); BLOOD UREA NITROGEN 41 mg/dL (7-18); CALCIUM 7.8 mg/dL (8.5-10.1); CHLORIDE 85 mmol/L (98-107); CO2 19 mmol/L (21-32); CREATININE 4.8 mg/dL (0.55-1.02)
[2017-07-30 11:00] LABS: GLUCOSE,RANDOM 1154 mg/dL (74-106); POTASSIUM 6.4 mmol/L (3.5-5.1); SODIUM 117 mmol/L (136-145)
[2017-07-30] MEDS: ALBUTEROL SO4 0.083% IH SOL 2.5 MG/3 ML VIAL.NEB. NEB SCH ×3 (11:02→16:08)
[2017-07-30] MEDS ORDERED: hydrALAZINE HCL 50 MG TABLET (FP) PO ONE (11:11)
[2017-07-30] MEDS ORDERED: SODIUM CHLORIDE 250 ML IV PRN ×3 (11:13→12:24)
[2017-07-30] MEDS ORDERED: CALCIUM GLUCONATE 10% - 1,000 MG/10 ML VIAL IVPB ONE (12:00)
[2017-07-30] MEDS ORDERED: EPOETIN ALFA 10,000 UNIT/1 ML VIAL IVPUSH ONE (12:00)
--- NOTE | 2017-07-30 12:13 | PN ---
Teaching Attending Note Name of Resident: Piter Red ATTENDING PHYSICIAN STATEMENT I saw and evaluated the patient. I reviewed the resident's note and discussed the case with the resident. I agree with the resident's findings and plan as documented. SUBJECTIVE: 26 F, very well known to me from multiple admissions for DKA. History of HTN, DM, ESRD (dialysis on Wed, Wed, Wednesday), DM foot ulcers, pulmonary embolism ( 2016) on home O2, and non-compliance. Admitted via the ER due to 6 episodes of watery diarrhea since last night. Noted to have severe metabolic disarray on lab analysis. Started on an insulin drip for severe hyperglycemia. Medical treatment given for moderate Hyperkalemia. No travel history or sick contacts. Intake & Output 07/27/17 07/28/17 07/29/17 07/30/17 23:59 23:59 23:59 23:59 Weight 145 lb Last Vital Signs Temp Pulse Resp BP Pulse Ox 97.7 F 81 18 170/93 99 07/30/17 05:25 07/30/17 08:46 07/30/17 08:46 07/30/17 08:46 07/30/17 08:46 Active Medications Calcium Carbonate (Os-Gilberto 500mg -) 500 mg PO DAILY [facility] Chlorhexidine Gluconate (Hibiclens For Decolonization -) 1 applic TP HS [facility] Clonidine (Catapres -) 0.3 mg PO TID [facility] Heparin Sodium (Porcine) (Heparin -) 5,000 unit SQ BID [facility] Last Admin: 07/30/17 10:23 Dose: Not Given Hydralazine HCl (Apresoline -) 100 mg PO TID [facility] Insulin Human Regular 100 (units/ Sodium Chloride) 100 mls @ 6.57 mls/hr IVPB TITR ROSA MARIA; 0.1 UNITS/KG/HR PRN Reason: Protocol Last Admin: 07/30/17 09:58 Dose: 0.1 units/kg/hr, 6.57 mls/hr Sodium Chloride (Normal Saline -) 1,000 mls @ 50 mls/hr IV ASDIR [facility] MARIA Stop: 07/31/17 08:42 Last Admin: 07/30/17 09:58 Dose: 50 mls/hr Sodium Chloride (Normal Saline -) 250 mls @ 3,000 mls/hr IV PRN PRN PRN Reason: Hypotension during Dialysis Stop: 07/31/17 11:14 Sodium Chloride (Normal Saline -) 250 mls @ 3,000 mls/hr IV PRN PRN PRN Reason: Hypotension during Dialysis Stop: 07/31/17 11:14 Labetalol HCl (Normodyne -) 400 mg PO TID [facility] Mupirocin (Bactroban Ointment (For Decolonization) -) 1 applic NS BID [facility] Stop: 08/04/17 09:59 Nifedipine (Procardia Xl -) 90 mg PO DAILY [facility] Oxycodone HCl (Roxicodone -) 5 mg PO Q6H PRN PRN Reason: PAIN Last Admin: 07/30/17 10:22 Dose: 5 mg Ranitidine HCl (Zantac -) 150 mg PO DAILY [facility] Last Admin: 07/30/17 10:24 Dose: 150 mg Sevelamer Carbonate (Renvela -) 1,600 mg PO TIDCM [facility] GENERAL: Awake, alert, and fully oriented, in no acute distress. HEAD: Normal with no signs of trauma. EARS, NOSE, THROAT: dry mucous membranes. NECK: Normal range of motion, supple without lymphadenopathy, JVD, or masses. LUNGS: Breath sounds equal, clear to auscultation bilaterally. No wheezes, and no crackles. No accessory muscle use. HEART: Regular rate and rhythm, normal S1 and S2 without murmur, ABDOMEN: Soft, nontender, not distended, normoactive bowel sounds, no guarding, no rebound, no masses. MUSCULOSKELETAL: Normal range of motion at all joints. No bony deformities or tenderness. UPPER EXTREMITIES: 2+ pulses, warm, well-perfused. No cyanosis. LOWER EXTREMITIES: b/l lower leg edematous, ulcer present on planter aspect of right foot, with slough and disharge, some granulation tissue present, margins whits, surrounding skin non eryhtematous, non tender. NEUROLOGICAL: Non-focal PSYCHIATRIC: Cooperative. SKIN: Warm, dry Laboratory Results - last 24 hr 07/30/17 07/30/17 07/30/17 06:00 06:05 06:05 WBC 6.1 RBC 3.28 L Hgb 9.1 L Hct 31.4 L MCV 95.5 D MCH 27.7 MCHC 29.0 L RDW 18.0 H Plt Count 331 MPV 9.6 Neutrophils % 84.3 H Lymphocytes % 5.9 L Monocytes % 9.0 Eosinophils % 0.2 D Basophils % 0.6 PT with INR INR PTT (Actin FS) Sodium 121 L* Potassium 5.5 H Chloride 87 L Carbon Dioxide 18 L Anion Gap 16 BUN 43 H Creatinine 5.0 H Creat Clearance w eGFR 10.38 Random Glucose 1172 H* Lactic Acid 2.2 H* Calcium 7.6 L Total Bilirubin 0.6 D AST 37 ALT 21 Alkaline Phosphatase 1107 H Troponin I < 0.02 Total Protein 7.9 Albumin 3.0 L Lipase 363 Serum , Qual Acetone, Qual 07/30/17 07/30/17 07/30/17 06:05 06:05 06:05 WBC RBC Hgb Hct MCV MCH MCHC RDW Plt Count MPV Neutrophils % Lymphocytes % Monocytes % Eosinophils % Basophils % PT with INR 12.70 INR 1.12 PTT (Actin FS) 31.3 Sodium Potassium Chloride Carbon Dioxide Anion Gap BUN Creatinine Creat Clearance w eGFR Random Glucose Lactic Acid Calcium Total Bilirubin AST ALT Alkaline Phosphatase Troponin I Cancelled Total Protein Albumin Lipase Serum , Qual Acetone, Qual Positive moderate 2+ H 07/30/17 06:05 WBC RBC Hgb Hct MCV MCH MCHC RDW Plt Count MPV Neutrophils % Lymphocytes % Monocytes % Eosinophils % Basophils % PT with INR INR PTT (Actin FS) Sodium Potassium Chloride Carbon Dioxide Anion Gap BUN Creatinine Creat Clearance w eGFR Random Glucose Lactic Acid Calcium Total Bilirubin AST ALT Alkaline Phosphatase Troponin I Total Protein Albumin Lipase Serum , Qual Negative Acetone, Qual ASSESSMENT/PLAN: HHNK Hyperkalemia ESRD on HD HTN Hx of DVT/PE in 12/20 DM foot ulcer Insulin drip IVF HD Per Renal Follow BGM O2 as needed Local wound care per Podiatry Noted empiric ABX were given Follow cultures Eliquis ICU monitoring Dr Ballesteros Critical care time spent in reviewing chart, evaluating patient and formulating plan - 36 minutes.
--- NOTE | 2017-07-30 12:24 | CONSULT ---
Consult - text type - Consultation Consultation Note: Renal Consult for ESRD on HD This is a 26 year old woman that is well known to our service from prior admissions with ESRD on HD (MWF), DM type 1, Hx of PE, LE wound who is non- compliant with dietary and fluid restrictions who presents with a non-healing wound on her right foot, diarrhea and found to have DKA. She was treated for this LE wound on a recent admission during which TADEO was negative for Osteo. Pt had isolated UF yesterday for management of fluid overload. Pt state she was not taking her insulin because she was not eating well. No CP, SOB, N/V. + diarrhea at home w/o abd pain . PMHx: as above Allergies: NKDA Family hx: NC Social Hx: No T/A/D ROS: As per HPI Home Medications Medication Instructions Recorded Sevelamer Carbonate [Renvela -] 1,600 mg PO TIDCM #60 tab 07/14/16 Losartan Potassium [Cozaar -] 100 mg PO DAILY 12/21/16 Labetalol HCl [Normodyne -] 400 mg PO TID #60 tablet 12/26/16 Insulin Sliding Scale [Novolog 0 vial SQ ACHS 06/03/17 Vial Sliding Scale -] Apixaban [Eliquis -] 5 mg PO BID tablet 06/04/17 Insulin Detemir [Levemir Flextouch] 17 unit SQ BID 06/21/17 Docusate Sodium [Colace -] 100 mg PO Q12H PRN capsule 06/23/17 Ranitidine [Zantac -] 150 mg PO DAILY tablet 06/23/17 hydrALAZINE HCL [Apresoline -] 100 mg PO TID 30 Days #60 tablet 06/23/17 cloNIDine HCL [Catapres -] 0.3 mg PO TID 06/28/17 Oxycodone HCl [Oxycontin] 10 mg PO PRN PRN 07/12/17 Calcium Carbonate [Calcium] mg PO ASDIR 07/30/17 Nifedipine ER [Procardia XL -] 30 mg PO DAILY 07/30/17 Vital Signs Temperature 97.7 F 07/30/17 05:25 Pulse Rate 81 07/30/17 08:46 Respiratory Rate 18 07/30/17 08:46 Blood Pressure 170/93 07/30/17 08:46 O2 Sat by Pulse Oximetry (%) 99 07/30/17 08:46 Intake & Output 07/27/17 07/28/17 07/29/17 07/30/17 23:59 23:59 23:59 23:59 Weight 65.771 kg NAD on NC O2 MMM, No JVD RRR, No M/R DEc Bs at lung bases soft NT/ND 2+ LE edema + open wound on plantar aspect of right foot + AVF CBC, BMP 07/30/17 06:05 07/30/17 10:13 Current Medications Calcium Carbonate (Os-Gilberto 500mg -) 500 mg PO DAILY [facility] Chlorhexidine Gluconate (Hibiclens For Decolonization -) 1 applic TP HS [facility] Clonidine (Catapres -) 0.3 mg PO TID [facility] Heparin Sodium (Porcine) (Heparin -) 5,000 unit SQ BID [facility] Last Admin: 07/30/17 10:23 Dose: Not Given Hydralazine HCl (Apresoline -) 100 mg PO TID [facility] Insulin Human Regular 100 (units/ Sodium Chloride) 100 mls @ 6.57 mls/hr IVPB TITR ROSA MARIA; 0.1 UNITS/KG/HR PRN Reason: Protocol Last Admin: 07/30/17 09:58 Dose: 0.1 units/kg/hr, 6.57 mls/hr Sodium Chloride (Normal Saline -) 1,000 mls @ 50 mls/hr IV ASDIR [facility] Stop: 07/31/17 08:42 Last Admin: 07/30/17 09:58 Dose: 50 mls/hr Sodium Chloride (Normal Saline -) 250 mls @ 3,000 mls/hr IV PRN PRN PRN Reason: Hypotension during Dialysis Stop: 07/31/17 11:14 Sodium Chloride (Normal Saline -) 250 mls @ 3,000 mls/hr IV PRN PRN PRN Reason: Hypotension during Dialysis Stop: 07/31/17 11:14 Labetalol HCl (Normodyne -) 400 mg PO TID [facility] Mupirocin (Bactroban Ointment (For Decolonization) -) 1 applic NS BID [facility] Stop: 08/04/17 09:59 Nifedipine (Procardia Xl -) 90 mg PO DAILY [facility] Oxycodone HCl (Roxicodone -) 5 mg PO Q6H PRN PRN Reason: PAIN Last Admin: 07/30/17 10:22 Dose: 5 mg Ranitidine HCl (Zantac -) 150 mg PO DAILY [facility] Last Admin: 07/30/17 10:24 Dose: 150 mg Sevelamer Carbonate (Renvela -) 1,600 mg PO TIDCM ROSA MARIA 26 year old woman that is well known to our service from prior admissions with ESRD on HD (MWF), DM type 1, Hx of PE, LE wound who is non-compliant with dietary and fluid restrictions who presents with a non-healing wound on her right foot, diarrhea and found to have DKA. #DKA #LE wound #ESRD on HD with fluid overload #Hyperkalemia #Hypertension #CKD related Anemia ICU admission for DKA management Insulin drip and monitoring of blood glucose continue moderate IVF as pt has volume overload will arrange for dialysis today as a inpatient with UF as tolerated agree with IV insulin pending dialysis for management of hyperkalemia check EKG and if any changes give Calcium gluconate Renal Diet, 1.2 L fluid restriction will plan for additional HD with UF tomorrow Will give epogen with HD Continue Nifedpine, Labetalol and Clonidine (should not hold prior to HD) Thank you Nathan Vo DO
[2017-07-30] MEDS: MUPIROCIN 2% TOPICAL OINTMENT FOR DECOLONIZATION NS SCH ×2 (12:37→21:46)
[2017-07-30] MEDS: CALCIUM (OYSTER SHELL) 500 MG TABLET (FP) PO SCH (12:46)
[2017-07-30] MEDS ORDERED: LABETALOL HCL 5 MG/1 ML (100MG/20 ML VIAL) IVPUSH ONE (12:51)
[2017-07-30] MEDS ORDERED: LABETALOL HCL 5 MG/1 ML (100MG/20 ML VIAL) ONE (12:56)
--- NOTE | 2017-07-30 12:56 | CONSULT ---
Consultation: CONSULT REQUEST: We have been asked to medically evaluate this patient for ICU/ CC. HISTORY OF PRESENT ILLNESS: Patient is a 26F with history of HTN, IDDM, ESRD on MWF dialysis, PE who presented to the ED complaining of diarrhea for the past 6 hours. She reports 4-6 watery bowel movements. She states that she didn't look for blood or dark stools. Reported to IM service that she recently completed a course of antibiotics. She denies chest pain, nausea, vomiting, fever, chills. She has a wound on her right foot that she describes as unchanged. She last went to wound care 1 month ago. Patient reports that she doesn't check her sugar often and misses insulin doses frequently. Patient discontinued eliquis on her own because she was having nose bleeds in June. Had extra dialysis yesterday. REVIEW OF SYSTEMS: GENERAL/CONSTITUTIONAL: No fever or chills. Positive for weakness. HEAD, EYES, EARS, NOSE AND THROAT: No change in vision. No sore throat. CARDIOVASCULAR: No chest pain. Positive for shortness of breath RESPIRATORY: No cough, wheezing, or hemoptysis. GASTROINTESTINAL: No nausea, vomiting, or constipation. Positive for diarrhea GENITOURINARY: Does not make urine MUSCULOSKELETAL: No joint or muscle swelling or pain. No neck or back pain. NEUROLOGIC: No headache, vertigo, loss of consciousness, or change in strength/ sensation. HEMATOLOGIC/LYMPHATIC: No anemia, easy bleeding. Positive for history of blood clots. ALLERGIC/IMMUNOLOGIC: No hives or skin allergy. PHYSICAL EXAMINATION Vital Signs - 24 hr 07/30/17 07/30/17 07/30/17 05:25 07:21 08:46 Temperature 97.7 F Pulse Rate 90 Pulse Rate [ 88 81 Left] Respiratory 18 18 18 Rate Blood Pressure 178/97 Blood Pressure 188/100 170/93 [Right] O2 Sat by Pulse 99 99 99 Oximetry (%) 07/30/17 12:46 Temperature Pulse Rate 82 Pulse Rate [ Left] Respiratory 20 Rate Blood Pressure 210/115 Blood Pressure [Right] O2 Sat by Pulse Oximetry (%) GENERAL: Awake, alert, and fully oriented, in no acute distress. HEAD: Normal with no signs of trauma. EYES: Pupils equal, round and reactive to light, extraocular movements intact, sclera anicteric, conjunctiva clear. EARS, NOSE, THROAT: Ears normal, nares patent, oropharynx clear without exudates. Dry mucous membranes. LUNGS: Breath sounds equal, crackles bilaterally HEART: Regular rate and rhythm, normal S1 and S2 without murmur, rub or gallop. ABDOMEN: Soft, nontender, not distended, normoactive bowel sounds, no guarding, no rebound, no masses. No hepatomegaly or splenomegaly. UPPER EXTREMITIES: 1+ pulses, warm, well-perfused. LOWER EXTREMITIES: 1+ pulses, warm, well-perfused. 2+ pitting edema bilaterally. Wound on plantar aspect of right foot with drainage NEUROLOGICAL: Cranial nerves II-XII intact. Normal speech. Normal gait. Laboratory Results - last 24 hr 07/30/17 07/30/17 07/30/17 06:00 06:05 06:05 WBC 6.1 RBC 3.28 L Hgb 9.1 L Hct 31.4 L MCV 95.5 D MCH 27.7 MCHC 29.0 L RDW 18.0 H Plt Count 331 MPV 9.6 Neutrophils % 84.3 H Lymphocytes % 5.9 L Monocytes % 9.0 Eosinophils % 0.2 D Basophils % 0.6 PT with INR INR PTT (Actin FS) Sodium 121 L* Potassium 5.5 H Chloride 87 L Carbon Dioxide 18 L Anion Gap 16 BUN 43 H Creatinine 5.0 H Creat Clearance w eGFR 10.38 Random Glucose 1172 H* Lactic Acid 2.2 H* Calcium 7.6 L Phosphorus Magnesium Total Bilirubin 0.6 D AST 37 ALT 21 Alkaline Phosphatase 1107 H Troponin I < 0.02 C-Reactive Protein Total Protein 7.9 Albumin 3.0 L Lipase 363 Serum , Qual Acetone, Qual 07/30/17 07/30/17 07/30/17 06:05 06:05 06:05 WBC RBC Hgb Hct MCV MCH MCHC RDW Plt Count MPV Neutrophils % Lymphocytes % Monocytes % Eosinophils % Basophils % PT with INR 12.70 INR 1.12 PTT (Actin FS) 31.3 Sodium Potassium Chloride Carbon Dioxide Anion Gap BUN Creatinine Creat Clearance w eGFR Random Glucose Lactic Acid Calcium Phosphorus Magnesium Total Bilirubin AST ALT Alkaline Phosphatase Troponin I Cancelled C-Reactive Protein Total Protein Albumin Lipase Serum , Qual Acetone, Qual Positive moderate 2+ H 07/30/17 07/30/17 07/30/17 06:05 10:13 10:13 WBC RBC Hgb Hct MCV MCH MCHC RDW Plt Count MPV Neutrophils % Lymphocytes % Monocytes % Eosinophils % Basophils % PT with INR INR PTT (Actin FS) Sodium 117 L* Potassium 6.4 H* Chloride 85 L Carbon Dioxide 19 L Anion Gap 13 BUN 41 H Creatinine 4.8 H Creat Clearance w eGFR Random Glucose 1154 H* Lactic Acid Calcium 7.8 L Phosphorus 4.4 Magnesium 2.5 H Total Bilirubin AST ALT Alkaline Phosphatase Troponin I C-Reactive Protein Total Protein Albumin Lipase Serum , Qual Negative Acetone, Qual 07/30/17 07/30/17 11:52 11:52 WBC RBC Hgb Hct MCV MCH MCHC RDW Plt Count MPV Neutrophils % Lymphocytes % Monocytes % Eosinophils % Basophils % PT with INR INR PTT (Actin FS) Sodium Potassium Chloride Carbon Dioxide Anion Gap BUN Creatinine Creat Clearance w eGFR Random Glucose Lactic Acid Calcium Phosphorus Magnesium Total Bilirubin AST ALT Alkaline Phosphatase Troponin I < 0.02 C-Reactive Protein 3.7 H Total Protein Albumin Lipase Serum , Qual Acetone, Qual Active Medications Generic Name Dose Route Start Last Admin Trade Name Freq PRN Reason Stop Dose Admin Calcium Carbonate 500 mg 07/30/17 10:00 07/30/17 12:46 Os-Gilberto 500mg - PO 500 mg DAILY ROSA MARIA Administration Chlorhexidine Gluconate 1 applic 07/30/17 22:00 Hibiclens For Decolonization - TP HS ROSA MARIA Clonidine 0.3 mg 07/30/17 14:00 Catapres - PO TID ROSA MARIA Heparin Sodium (Porcine) 5,000 unit 07/30/17 10:00 07/30/17 10:23 Heparin - SQ Not Given BID ROSA MARIA Hydralazine HCl 100 mg 07/30/17 09:35 Apresoline - PO TID ROSA MARIA Insulin Human Regular 100 100 mls @ 6.57 mls/hr 07/30/17 07:15 07/30/17 12:38 units/ Sodium Chloride IVPB 0.1 units/kg/hr TITR ROSA MARIA 7 mls/hr Protocol Titration 0.1 UNITS/KG/HR Sodium Chloride 1,000 mls @ 50 mls/hr 07/30/17 08:45 07/30/17 09:58 Normal Saline - IV 07/31/17 08:42 50 mls/hr ASDIR ROSA MARIA Administration Sodium Chloride 250 mls @ 3,000 mls/hr 07/30/17 11:13 Normal Saline - IV 07/31/17 11:14 PRN PRN Hypotension during Dialysis Sodium Chloride 250 mls @ 3,000 mls/hr 07/30/17 11:14 Normal Saline - IV 07/31/17 11:14 PRN PRN Hypotension during Dialysis Sodium Chloride 250 mls @ 3,000 mls/hr 07/30/17 12:24 Normal Saline - IV 07/31/17 12:24 PRN PRN Hypotension during Dialysis Labetalol HCl 400 mg 07/30/17 14:00 Normodyne - PO TID ROSA MARIA Mupirocin 1 applic 07/30/17 10:00 07/30/17 12:37 Bactroban Ointment (For Decolonization) - NS 08/04/17 09:59 1 applic BID ROSA MARIA Administration Nifedipine 30 mg 07/30/17 12:45 Procardia Xl - PO DAILY ROSA MARIA Oxycodone HCl 5 mg 07/30/17 09:02 07/30/17 10:22 Roxicodone - PO 5 mg Q6H PRN Administration PAIN Ranitidine HCl 150 mg 07/30/17 10:00 07/30/17 10:24 Zantac - PO 150 mg DAILY ROSA MARIA Administration Sevelamer Carbonate 1,600 mg 07/30/17 12:00 Renvela - PO TIDCM [facility] ASSESSMENT/PLAN: 26 F with history of HTN, IDDM, ESRD on MWF dialysis, PE here today with osteomyelitis and HHS/DKA Endocrine #Hyperosmotic hyperosmolar state/DKA -VBG not performed in ED, stat order now -Gap 16, bicarb low, 2+ acetone, glucose 1172, k 5.5. Initial osm 322. Consistent with HHS more than DKA. -Sodium initially 121, corrected 138 -Repeat BMP#1: Gap 13, gluocse 1154, Na 117 (corrected 134), k 6.4. Patient given calcium gluconate, albuterol. Dialysis starting. Insulin drip changed to 7U after scale showed patient weighs 71kg. Suspect lack of change in glucose was due to patient eating -Repeat BMP#2: Gap 12, glucose 1097, Na 118 (corrected 138). K 5.6. Patient getting dialysis. Glucose responding appropriately. -Giving 50cc/hr NS, insulin drip, holding K supplementation, VBG pending. Going slow on fluids due to patient's dialysis status and signs of fluid overload -BMPs Q2H as fingersticks are overrange and cannot track glucose levels ID #Osteomyelitis -Given vanc/zosyn in ED -ID on board, will follow reqs Cardiovascular #Fluid overload -Bilateral edema in lower extremities, pleural effusions on CXR -Intravascularly down -K elevated -Dialysis today per renal reqs #HTN - Given 10mg labetalol push after BP 210/110 in ICU - Otherwise will continue home regimen of clonidine, labetalol, nifedipine Renal #ESRD on MWF dialysis -Renal on board, will follow reqs -Dialysis today, K elevated as noted above.\ -Sevelamer -Epoeitin christiano Neuro/Psych #Pain -Oxycodone FEN/GI -PO calcium supplementation -Will monitor electrolytes closely -NPO PPx - heparin/ranitidine Dispo - continued ICU care Visit type - Emergency Visit Emergency Visit: Yes ED Registration Date: 07/30/17 Care time: The patient presented to the Emergency Department on the above date and was hospitalized for further evaluation of their emergent condition. - New Patient This patient is new to me today: Yes Date on this admission: 07/30/17 - Critical Care Critical Care patient: Yes Total Critical Care Time (in minutes): 85 Critical Care Statement: The care of this patient involved high complexity decision making to prevent further life threatening deterioration of the patient 's condition and/or to evaluate & treat vital organ system(s) failure or risk of failure.
[2017-07-30 12:57] LABS: ANION GAP 12 (8-16); BLOOD UREA NITROGEN 42 mg/dL (7-18); CALCIUM 7.6 mg/dL (8.5-10.1); CHLORIDE 86 mmol/L (98-107); CO2 20 mmol/L (21-32); POTASSIUM 5.6 mmol/L (3.5-5.1)
[2017-07-30 13:10] LABS: GLUCOSE,RANDOM 1097 mg/dL (74-106); SODIUM 118 mmol/L (136-145)
[2017-07-30] MEDS: SEVELAMER CARBONATE 800 MG TAB (FP) PO SCH ×3 (13:11→18:30)
[2017-07-30] MEDS: hydrALAZINE HCL 50 MG TABLET (FP) PO SCH ×2 (13:11→21:48)
[2017-07-30] MEDS: NIFEdipine E.R. 30 MG TABLET (FP) PO SCH (13:17)
[2017-07-30] MEDS ORDERED: SODIUM CHLORIDE 0.45% 1,000 ML IV SCH (13:45)
[2017-07-30] MEDS ORDERED: hydrALAZINE HCL 50 MG TABLET (FP) PO SCH (14:00)
[2017-07-30] MEDS ORDERED: diphenhydrAMINE HCL 25 MG CAPSULE (FP) PO ONE (14:08)
[2017-07-30 14:27] VITALS: BMI 25.4
[2017-07-30] MEDS: cloNIDine HCL 0.1 MG TABLET PO SCH ×2 (15:00→21:46)
[2017-07-30] MEDS: LABETALOL HCL 200 MG TABLET (FP) PO SCH ×2 (15:00→21:48)
--- NOTE | 2017-07-30 15:06 | CON.ID ---
Consult Consult Specialty:: infectious diseases Reason for Consultation:: dirrhoea,osteo - History of Present Illness History of Present Illness: 26 year old woman that is well known to me from prior admissions with ESRD on HD (MWF), DM type 1, Hx of PE, LE wound who is non-compliant with dietary and fluid restrictions who presents with a non-healing wound on her right foot, diarrhea and found to have DKA with very high blood sugars She was treated for this LE wound recently and Mri was negative for Osteo. patient is very non compliant and did not take insulin because she mentions that she was not eating well. on admission her sugars were very high. 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, PE, DVT) Pulmonary: Yes: Pulmonary Embolus Renal/: Yes: Renal Failure, Hemodialysis ...LMP: 05/13/17 ...: No Infectious Disease: Yes: MRSA (history of bacteremia, recent mrsa foot abscess) Endocrine: Yes: Diabetes Mellitus (type 1 on insulin pump) Additional Medical History: DVT, PE on coumadin - Past Surgical History Past Surgical History: Yes: AV Fistula/Graft (Right arm) - Alcohol/Substance Use Hx Alcohol Use: No History of Substance Use: reports: None - Smoking History Smoking history: Never smoked Have you smoked in the past 12 months: No Aproximately how many cigarettes per day: 10 - Social History Usual Living Arrangement: With Parent ADL: Independent Occupation: unemployed History of Recent Travel: No Home Medications - Allergies Allergies/Adverse Reactions: Allergies Allergy/AdvReac Type Severity Reaction Status Date / Time No Known Drug Allergies Allergy Verified 07/30/17 05:30 - Home Medications Home Medications: Ambulatory Orders Sevelamer Carbonate [Renvela -] 1,600 mg PO TIDCM #60 tab 07/14/16 Losartan Potassium [Cozaar -] 100 mg PO DAILY 12/21/16 Labetalol HCl [Normodyne -] 400 mg PO TID #60 tablet 12/26/16 Insulin Sliding Scale [Novolog Vial Sliding Scale -] 0 vial SQ ACHS 06/03/17 Apixaban [Eliquis -] 5 mg PO BID tablet 06/04/17 Insulin Detemir [Levemir Flextouch] 17 unit SQ BID 06/21/17 Docusate Sodium [Colace -] 100 mg PO Q12H PRN capsule 06/23/17 Ranitidine [Zantac -] 150 mg PO DAILY tablet 06/23/17 hydrALAZINE HCL [Apresoline -] 100 mg PO TID 30 Days #60 tablet 06/23/17 cloNIDine HCL [Catapres -] 0.3 mg PO TID 06/28/17 Oxycodone HCl [Oxycontin] 10 mg PO PRN PRN 07/12/17 Calcium Carbonate [Calcium] mg PO ASDIR 07/30/17 Nifedipine ER [Procardia XL -] 30 mg PO DAILY 07/30/17 Family Disease History - Family Disease History Family Disease History: Diabetes: Grandparent (HTN), Heart Disease: Grandparent , Other: Father (unknown), Mother (HTN) Review of Systems - Review of Systems Constitutional: reports: Lethargy, Weakness Eyes: reports: No Symptoms HENT: reports: No Symptoms Neck: reports: No Symptoms Cardiovascular: reports: No Symptoms Respiratory: reports: No Symptoms Gastrointestinal: reports: Diarrhea Genitourinary: reports: No Symptoms Musculoskeletal: reports: No Symptoms Integumentary: reports: No Symptoms Neurological: reports: No Symptoms Endocrine: reports: No Symptoms Hematology/Lymphatic: reports: No Symptoms Psychiatric: reports: No Symptoms Physical Exam Vital Signs: Vital Signs Temperature 97.5 F L 07/30/17 12:50 Pulse Rate 81 07/30/17 13:55 Respiratory Rate 18 07/30/17 13:55 Blood Pressure 177/98 07/30/17 13:55 O2 Sat by Pulse Oximetry (%) 99 07/30/17 08:46 Constitutional: Yes: Thin, Other (non compliant) Eyes: Yes: Conjunctiva Clear HENT: Yes: Atraumatic Neck: Yes: Supple, Trachea Midline Cardiovascular: Yes: Regular Rate and Rhythm Respiratory: Yes: Regular, CTA Bilaterally Gastrointestinal: Yes: Normal Bowel Sounds, Soft Musculoskeletal: Yes: Other Extremities: Yes: Other Edema: LLE: 2+, RLE: 2+ Integumentary: Yes: Other (+ open wound on plantar aspect of right foot + AVF) Wound/Incision: Yes: Other (+ open wound on plantar aspect of right foot) Neurological: Yes: Alert, Oriented Psychiatric: Yes: Alert, Oriented Labs: CBC, BMP 07/30/17 06:05 07/30/17 12:25 Assessment/Plan 26 year old woman with ESRD on HD , DM type 1, Hx of PE, LE wound who is non- compliant with dietary and fluid restrictions who presents with a non-healing wound on her right foot, diarrhea and found to have DKA. patients symptoms are mostly related to the dka process importantly patients foot xray is showing suspicion of osteo DKA LE wound ESRD on HD with fluid overload Hyperkalemia Hypertension CKD related Anemia dirrhoea plan 1 please do mri of the leg 2 if persistent dirrhoea send a cdiff 3.no abx for the time being 4.await for all cx and wound cx 5.nutrition 6.monitor sugars and as per icu cc time 40 min
[2017-07-30 15:32] LABS: VENOUS PC02 40.5 mmHg (38-52); VENOUS PH 7.39 (7.32-7.42)
[2017-07-30 15:55] LABS: ANION GAP 11 (8-16); BLOOD UREA NITROGEN 23 mg/dL (7-18); CALCIUM 7.7 mg/dL (8.5-10.1); CHLORIDE 94 mmol/L (98-107); CO2 25 mmol/L (21-32); POTASSIUM 3.7 mmol/L (3.5-5.1); SODIUM 130 mmol/L (136-145)
[2017-07-30 15:59] LABS: GLUCOSE,RANDOM 412 mg/dL (74-106)
[2017-07-30] MEDS ORDERED: DEXTROSE 10%-WATER - 1,000 ML IV SCH (17:15)
[2017-07-30 18:17] LABS: ANION GAP 9 (8-16); BLOOD UREA NITROGEN 13 mg/dL (7-18); CALCIUM 8.3 mg/dL (8.5-10.1); CHLORIDE 96 mmol/L (98-107); CO2 31 mmol/L (21-32); CREATININE 1.9 mg/dL (0.55-1.02); GLUCOSE,RANDOM 186 mg/dL (74-106); POTASSIUM 3.1 mmol/L (3.5-5.1); SODIUM 136 mmol/L (136-145)
[2017-07-30 19:07] LABS: MAGNESIUM 1.9 mg/dL (1.8-2.4); PHOSPHOROUS 1.7 mg/dL (2.5-4.9)
--- NOTE | 2017-07-30 19:31 | PN ---
Teaching Attending Note Name of Resident: Krishna Acosta ATTENDING PHYSICIAN STATEMENT I saw and evaluated the patient. I reviewed the resident's note and discussed the case with the resident. I agree with the resident's findings and plan as documented. SUBJECTIVE: Patient seen again this afternoon, she is feeling much better. Currently on HD machine, tolerating well with good blood pressure. OBJECTIVE: Last Vital Signs Temp Pulse Resp BP Pulse Ox 97.5 F L 80 20 168/87 99 07/30/17 17:00 07/30/17 18:00 07/30/17 18:00 07/30/17 18:00 07/30/17 08:46 Hx of DM with poor compliance with insulin regimen. Presented to ED this am with several episodes of watery diarrhea overnight, labs notable for DKA with anion gap and severe hyperglycemia. Admitted to ICU for management of metabolic disarray and DKA, Hyperosmolar syndrome. Laboratory Results - last 24 hr 07/30/17 07/30/17 07/30/17 06:00 06:05 06:05 WBC 6.1 RBC 3.28 L Hgb 9.1 L Hct 31.4 L MCV 95.5 D MCH 27.7 MCHC 29.0 L RDW 18.0 H Plt Count 331 MPV 9.6 Neutrophils % 84.3 H Lymphocytes % 5.9 L Monocytes % 9.0 Eosinophils % 0.2 D Basophils % 0.6 ESR PT with INR INR PTT (Actin FS) VBG pH POC VBG pCO2 POC VBG pO2 Mixed VBG HCO3 Sodium 121 L* Potassium 5.5 H Chloride 87 L Carbon Dioxide 18 L Anion Gap 16 BUN 43 H Creatinine 5.0 H Creat Clearance w eGFR 10.38 POC Glucometer Random Glucose 1172 H* Lactic Acid 2.2 H* Calcium 7.6 L Phosphorus Magnesium Total Bilirubin 0.6 D AST 37 ALT 21 Alkaline Phosphatase 1107 H Troponin I < 0.02 C-Reactive Protein Total Protein 7.9 Albumin 3.0 L Lipase 363 Serum , Qual Acetone, Qual 07/30/17 07/30/17 07/30/17 06:05 06:05 06:05 WBC RBC Hgb Hct MCV MCH MCHC RDW Plt Count MPV Neutrophils % Lymphocytes % Monocytes % Eosinophils % Basophils % ESR PT with INR 12.70 INR 1.12 PTT (Actin FS) 31.3 VBG pH POC VBG pCO2 POC VBG pO2 Mixed VBG HCO3 Sodium Potassium Chloride Carbon Dioxide Anion Gap BUN Creatinine Creat Clearance w eGFR POC Glucometer Random Glucose Lactic Acid Calcium Phosphorus Magnesium Total Bilirubin AST ALT Alkaline Phosphatase Troponin I Cancelled C-Reactive Protein Total Protein Albumin Lipase Serum , Qual Acetone, Qual Positive moderate 2+ H 07/30/17 07/30/17 07/30/17 06:05 09:54 10:13 WBC RBC Hgb Hct MCV MCH MCHC RDW Plt Count MPV Neutrophils % Lymphocytes % Monocytes % Eosinophils % Basophils % ESR PT with INR INR PTT (Actin FS) VBG pH POC VBG pCO2 POC VBG pO2 Mixed VBG HCO3 Sodium Potassium Chloride Carbon Dioxide Anion Gap BUN Creatinine Creat Clearance w eGFR POC Glucometer > 400 Random Glucose Lactic Acid Calcium Phosphorus 4.4 Magnesium 2.5 H Total Bilirubin AST ALT Alkaline Phosphatase Troponin I C-Reactive Protein Total Protein Albumin Lipase Serum , Qual Negative Acetone, Qual 07/30/17 07/30/17 07/30/17 10:13 11:05 11:52 WBC RBC Hgb Hct MCV MCH MCHC RDW Plt Count MPV Neutrophils % Lymphocytes % Monocytes % Eosinophils % Basophils % ESR PT with INR INR PTT (Actin FS) VBG pH POC VBG pCO2 POC VBG pO2 Mixed VBG HCO3 Sodium 117 L* Potassium 6.4 H* Chloride 85 L Carbon Dioxide 19 L Anion Gap 13 BUN 41 H Creatinine 4.8 H Creat Clearance w eGFR POC Glucometer > 400 Random Glucose 1154 H* Lactic Acid Calcium 7.8 L Phosphorus Magnesium Total Bilirubin AST ALT Alkaline Phosphatase Troponin I C-Reactive Protein 3.7 H Total Protein Albumin Lipase Serum , Qual Acetone, Qual 07/30/17 07/30/17 07/30/17 11:52 11:52 12:01 WBC RBC Hgb Hct MCV MCH MCHC RDW Plt Count MPV Neutrophils % Lymphocytes % Monocytes % Eosinophils % Basophils % ESR 101 H PT with INR INR PTT (Actin FS) VBG pH POC VBG pCO2 POC VBG pO2 Mixed VBG HCO3 Sodium Potassium Chloride Carbon Dioxide Anion Gap BUN Creatinine Creat Clearance w eGFR POC Glucometer > 400 Random Glucose Lactic Acid Calcium Phosphorus Magnesium Total Bilirubin AST ALT Alkaline Phosphatase Troponin I < 0.02 C-Reactive Protein Total Protein Albumin Lipase Serum , Qual Acetone, Qual 07/30/17 07/30/17 07/30/17 12:25 14:56 15:00 WBC RBC Hgb Hct MCV MCH MCHC RDW Plt Count MPV Neutrophils % Lymphocytes % Monocytes % Eosinophils % Basophils % ESR PT with INR INR PTT (Actin FS) VBG pH 7.39 D POC VBG pCO2 40.5 POC VBG pO2 117.0 H D Mixed VBG HCO3 24.2 Sodium 118 L* Potassium 5.6 H Chloride 86 L Carbon Dioxide 20 L Anion Gap 12 BUN 42 H Creatinine 5.0 H Creat Clearance w eGFR POC Glucometer > 400 Random Glucose 1097 H* Lactic Acid Calcium 7.6 L Phosphorus Magnesium Total Bilirubin AST ALT Alkaline Phosphatase Troponin I C-Reactive Protein Total Protein Albumin Lipase Serum , Qual Acetone, Qual 07/30/17 07/30/17 07/30/17 15:10 15:45 16:30 WBC RBC Hgb Hct MCV MCH MCHC RDW Plt Count MPV Neutrophils % Lymphocytes % Monocytes % Eosinophils % Basophils % ESR PT with INR INR PTT (Actin FS) VBG pH POC VBG pCO2 POC VBG pO2 Mixed VBG HCO3 Sodium 130 L 136 Potassium 3.7 3.1 L Chloride 94 L 96 L Carbon Dioxide 25 31 Anion Gap 11 9 BUN 23 H 13 Creatinine 3.0 H 1.9 H Creat Clearance w eGFR POC Glucometer [phone] Random Glucose 412 H* 186 H Lactic Acid Calcium 7.7 L 8.3 L Phosphorus Magnesium Total Bilirubin AST ALT Alkaline Phosphatase Troponin I C-Reactive Protein Total Protein Albumin Lipase Serum , Qual Acetone, Qual 07/30/17 07/30/17 16:30 16:47 WBC RBC Hgb Hct MCV MCH MCHC RDW Plt Count MPV Neutrophils % Lymphocytes % Monocytes % Eosinophils % Basophils % ESR PT with INR INR PTT (Actin FS) VBG pH POC VBG pCO2 POC VBG pO2 Mixed VBG HCO3 Sodium Potassium Chloride Carbon Dioxide Anion Gap BUN Creatinine Creat Clearance w eGFR POC Glucometer 209.49158 Random Glucose Lactic Acid Calcium Phosphorus 1.7 L Magnesium 1.9 Total Bilirubin AST ALT Alkaline Phosphatase Troponin I C-Reactive Protein Total Protein Albumin Lipase Serum , Qual Acetone, Qual Current Medications Generic Name Dose Route Start Last Admin Trade Name Freq PRN Reason Stop Dose Admin Calcium Carbonate 500 mg 07/30/17 10:00 07/30/17 12:46 Os-Gilberto 500mg - PO 500 mg DAILY ROSA MARIA Administration Chlorhexidine Gluconate 1 applic 07/30/17 22:00 Hibiclens For Decolonization - TP HS ROSA MARIA Clonidine 0.3 mg 07/30/17 14:00 07/30/17 15:00 Catapres - PO 0.3 mg TID ROSA MARIA Administration Heparin Sodium (Porcine) 5,000 unit 07/30/17 10:00 07/30/17 10:23 Heparin - SQ Not Given BID ROSA MARIA Hydralazine HCl 100 mg 07/30/17 09:35 07/30/17 13:11 Apresoline - PO 100 mg TID ROSA MARIA Administration Insulin Human Regular 100 100 mls @ 6.57 mls/hr 07/30/17 07:15 07/30/17 16:00 units/ Sodium Chloride IVPB 0.02 units/kg/hr TITR ROSA MARIA 1.7 mls/hr Protocol Titration 0.1 UNITS/KG/HR Sodium Chloride 250 mls @ 3,000 mls/hr 07/30/17 11:13 Normal Saline - IV 07/31/17 11:14 PRN PRN Hypotension during Dialysis Sodium Chloride 250 mls @ 3,000 mls/hr 07/30/17 11:14 Normal Saline - IV 07/31/17 11:14 PRN PRN Hypotension during Dialysis Sodium Chloride 250 mls @ 3,000 mls/hr 07/30/17 12:24 Normal Saline - IV 07/31/17 12:24 PRN PRN Hypotension during Dialysis Dextrose 1,000 mls @ 50 mls/hr 07/30/17 17:15 07/30/17 17:27 D10w - IV 50 mls/hr ASDIR ROSA MARIA Administration Labetalol HCl 400 mg 07/30/17 14:00 07/30/17 15:00 Normodyne - PO 400 mg TID ROSA MARIA Administration Mupirocin 1 applic 07/30/17 10:00 07/30/17 12:37 Bactroban Ointment (For Decolonization) - NS 08/04/17 09:59 1 applic BID ROSA MARIA Administration Nifedipine 30 mg 07/30/17 12:45 07/30/17 13:17 Procardia Xl - PO Not Given DAILY ROSA MARIA Oxycodone HCl 5 mg 07/30/17 09:02 07/30/17 10:22 Roxicodone - PO 5 mg Q6H PRN Administration PAIN Ranitidine HCl 150 mg 07/30/17 10:00 07/30/17 10:24 Zantac - PO 150 mg DAILY ROSA MARIA Administration Sevelamer Carbonate 1,600 mg 07/30/17 12:00 07/30/17 18:30 Renvela - PO 1,600 mg TIDCM ROSA MARIA Administration ASSESSMENT AND PLAN: 1. DM with DKA and hyperosmolar state, in the setting of poor compliance with insulin. Received insulin drip with resolution over the course of the day of ketoacidosis and anion gap. Hyperglycemia resolved with IV insulin and gentle hydration given ESRD with chronic volume overload. K+ initially high but came down with insulin and dialysis today. Now on low dose insulin drip 1.7 U/hr as ketosis is resolving with D10 at 50 ml/ hr to prevent hypoglycemia. Plan to transition to long acting insulin with sliding scale coverage. Patient's diet advanced this evening. 2. Acute episodes of diarrhea early this am prior to presentation, now fully resolved with no diarrhea in hospital all day. Sttol studies sent but rapid resolution suggests not likely acute infection. 3. Electrolytes K improved with insulin and dialysis, monitor for hypokalemia but typically patient gets hyperkalemic between dialysis session, and now only getting low dose insulin. PO4 to be repeted Na corrected with hydration and glucose normalized, and with HD 4. Hx of tiny questionable PE in 2017, small subsegmental basilar would treat with prophylactic level of anticoagulation rather than full anticoagulation 5. HTN continue home meds 6. ESRD HD today fluid restriction HD M, W, F 7. Chronic foot ulcer right foot without appearance of acute infection r/o osteo with repeat MRI antibiotics for 24 hours pending stabilization I would favor stopping antibiotics tomorrow pending further workup of possible foot infection with MRI 8. Prophylaxis SQ heparin
[2017-07-30 19:56] LABS: ANION GAP 6 (8-16); BLOOD UREA NITROGEN 15 mg/dL (7-18); CALCIUM 7.6 mg/dL (8.5-10.1); CHLORIDE 99 mmol/L (98-107); CO2 30 mmol/L (21-32); CREATININE 2.3 mg/dL (0.55-1.02); GLUCOSE,RANDOM 126 mg/dL (74-106); POTASSIUM 3.2 mmol/L (3.5-5.1); SODIUM 135 mmol/L (136-145)
[2017-07-30 19:57] LABS: MAGNESIUM 1.8 mg/dL (1.8-2.4); PHOSPHOROUS 2.2 mg/dL (2.5-4.9)
[2017-07-30] MEDS ORDERED: NAPH,MB-DB/K PH,MBDB POWDER PACKET PO ONE (20:15)
[2017-07-30] MEDS ORDERED: DEXTROSE 5%-0.45% SALINE 1,000 ML IV SCH (20:30)
--- NOTE | 2017-07-30 20:49 | PN ---
Progress Note (short form) - Note Progress Note: Following hemodialysis K+ dipped as low as 3.1 (4:30pm). No repletion given. On f/u bmp K+ 3.2 (7pm). Since anion gap wnl and glucose 186 on bmp (4:30pm), Diabetic/low Na+/renal diet started and pt given dinner at 5:30pm. Insulin drip titrated down several times as glucose levels were found to be responding quickly. Since glucose 126 on bmp (7pm), Insulin drip D/Ernesto at 8pm. (8pm BGM 182.) D10 IVFs D/Ernesto and changed to D5-1/2NS. Home dose of Levemir 17U BID started. Neutraphos packet given for hypophosphatemia. Pt AAOx3 and c/o hunger. Pt reports feeling better. Will continue to monitor labs.
[2017-07-30] MEDS ORDERED: LABETALOL HCL 100 MG TABLET (FP) ONE (21:23)
[2017-07-30] MEDS: INSULIN (LEVEMIR) 100 UNITS/ML UNITS SQ SCH (21:50)
[2017-07-30] MEDS: INSULIN SLIDING SCALE (NOVOLOG) 1 VIAL SQ SCH (22:00)
[2017-07-30] MEDS ORDERED: CHLORHEXIDINE GLUCONATE 4% CLEANSER FOR DECOLONIZATION TP SCH (22:00)
[2017-07-31] MEDS: oxyCODONE HCL 5 MG TABLET PO PRN ×3 (04:00→22:53)
[2017-07-31 06:12] LABS: HBSAG SCREEN Negative (Negative); HEP B CORE AB, TOT Negative (Negative)
[2017-07-31] MEDS: cloNIDine HCL 0.1 MG TABLET PO SCH ×3 (06:17→22:51)
[2017-07-31] MEDS: LABETALOL HCL 200 MG TABLET (FP) PO SCH ×3 (06:17→22:52)
[2017-07-31] MEDS: INSULIN SLIDING SCALE (NOVOLOG) 1 VIAL SQ SCH ×4 (06:18→22:52)
[2017-07-31] MEDS: INSULIN (LEVEMIR) 100 UNITS/ML UNITS SQ SCH ×2 (06:20→22:53)
[2017-07-31] MEDS: hydrALAZINE HCL 50 MG TABLET (FP) PO SCH ×3 (06:23→22:52)
[2017-07-31 08:23] LABS: BASO % 0.8 % (0-2.0); EOS % 2.3 % (0-4.5); HEMOGLOBIN 9.3 GM/dL (10.7-15.3); LYMPH % 14.3 % (8-40); MCH 27.6 pg (25.7-33.7); MCHC 33.1 g/dl (32.0-36.0); MEAN CELL VOLUME 83.3 fl (80-96); MEAN PLT VOLUME 8.8 fl (7.5-11.1); MONO % 11.4 % (3.8-10.2); NEUT % 71.2 % (42.8-82.8); PLATELET COUNT 355 K/MM3 (134-434); RBC 3.36 M/mm3 (3.60-5.2); RDW 16.1 % (11.6-15.6); WHITE BLOOD COUNT 9.4 K/mm3 (4.0-10.0)
--- NOTE | 2017-07-31 08:32 | PN ---
Physical Exam: SUBJECTIVE: Patient seen and examined Patient is feeling better today with no acute distress. Sugar is better controlled today. OBJECTIVE: Vital Signs Temperature 98.3 F 07/31/17 06:25 Pulse Rate 79 07/31/17 08:00 Respiratory Rate 18 07/31/17 08:00 Blood Pressure 156/96 07/31/17 08:00 O2 Sat by Pulse Oximetry (%) 99 07/30/17 20:05 GENERAL: The patient is awake, alert, and fully oriented, in no acute distress. HEAD: Normal with no signs of trauma. EYES: PERRL, extraocular movements intact, sclera anicteric, conjunctiva clear. No ptosis. ENT: Ears normal, nares patent, oropharynx clear without exudates, moist mucous membranes. NECK: Trachea midline, full range of motion, supple. LUNGS: Breath sounds equal, clear to auscultation bilaterally, no wheezes, no crackles, no accessory muscle use. HEART: Regular rate and rhythm, S1, S2 without murmur, rub or gallop. ABDOMEN: Soft, nontender, nondistended, normoactive bowel sounds, no guarding, no rebound, no masses are appreciated EXTREMITIES: 2+ pulses, warm, well-perfused, NEUROLOGICAL: Cranial nerves II through XII grossly intact. Normal speech, gait not observed. PSYCH: Normal mood, normal affect. SKIN: Warm, dry, normal turgor, no rashes or lesions noted CBCD WBC 6.1 K/mm3 (4.0-10.0) 07/30/17 06:05 RBC 3.28 M/mm3 (3.60-5.2) L 07/30/17 06:05 Hgb 9.1 GM/dL (10.7-15.3) L 07/30/17 06:05 Hct 31.4 % (32.4-45.2) L 07/30/17 06:05 MCV 95.5 fl (80-96) D 07/30/17 06:05 MCHC 29.0 g/dl (32.0-36.0) L 07/30/17 06:05 RDW 18.0 % (11.6-15.6) H 07/30/17 06:05 Plt Count 331 K/MM3 (134-434) 07/30/17 06:05 MPV 9.6 fl (7.5-11.1) 07/30/17 06:05 CMP Sodium 135 mmol/L (136-145) L 07/30/17 19:00 Potassium 3.2 mmol/L (3.5-5.1) L 07/30/17 19:00 Chloride 99 mmol/L (98-107) 07/30/17 19:00 Carbon Dioxide 30 mmol/L (21-32) 07/30/17 19:00 Anion Gap 6 (8-16) L 07/30/17 19:00 BUN 15 mg/dL (7-18) 07/30/17 19:00 Creatinine 2.3 mg/dL (0.55-1.02) H 07/30/17 19:00 Creat Clearance w eGFR 10.38 (>60) 07/30/17 06:05 Random Glucose 126 mg/dL (74-106) H 07/30/17 19:00 Calcium 7.6 mg/dL (8.5-10.1) L 07/30/17 19:00 Total Bilirubin 0.6 mg/dL (0.2-1.0) D 07/30/17 06:05 AST 37 U/L (15-37) 07/30/17 06:05 ALT 21 U/L (12-78) 07/30/17 06:05 Alkaline Phosphatase 1107 U/L (45-117) H 07/30/17 06:05 Total Protein 7.9 g/dl (6.4-8.2) 07/30/17 06:05 Albumin 3.0 g/dl (3.4-5.0) L 07/30/17 06:05 CARDIAC ENZYMES Troponin I < 0.02 ng/ml (0.00-0.05) 07/30/17 11:52 Home Medications Medication Instructions Recorded Sevelamer Carbonate [Renvela -] 1,600 mg PO TIDCM #60 tab 07/14/16 Losartan Potassium [Cozaar -] 100 mg PO DAILY 12/21/16 Labetalol HCl [Normodyne -] 400 mg PO TID #60 tablet 12/26/16 Insulin Sliding Scale [Novolog 0 vial SQ ACHS 06/03/17 Vial Sliding Scale -] Apixaban [Eliquis -] 5 mg PO BID tablet 06/04/17 Insulin Detemir [Levemir Flextouch] 17 unit SQ BID 06/21/17 Docusate Sodium [Colace -] 100 mg PO Q12H PRN capsule 06/23/17 Ranitidine [Zantac -] 150 mg PO DAILY tablet 06/23/17 hydrALAZINE HCL [Apresoline -] 100 mg PO TID 30 Days #60 tablet 06/23/17 cloNIDine HCL [Catapres -] 0.3 mg PO TID 06/28/17 Oxycodone HCl [Oxycontin] 10 mg PO PRN PRN 07/12/17 Calcium Carbonate [Calcium] mg PO ASDIR 07/30/17 Nifedipine ER [Procardia XL -] 30 mg PO DAILY 07/30/17 Active Medications Generic Name Dose Route Start Last Admin Trade Name Freq PRN Reason Stop Dose Admin Calcium Carbonate 500 mg 07/30/17 10:00 07/30/17 12:46 Os-Gilberto 500mg - PO 500 mg DAILY ROSA MARIA Administration Chlorhexidine Gluconate 1 applic 07/30/17 22:00 07/30/17 21:47 Hibiclens For Decolonization - TP 1 applic HS ROSA MARIA Administration Clonidine 0.3 mg 07/30/17 14:00 07/31/17 06:17 Catapres - PO 0.3 mg TID ROSA MARIA Administration Heparin Sodium (Porcine) 5,000 unit 07/30/17 10:00 07/30/17 21:47 Heparin - SQ Not Given BID ROSA MARIA Hydralazine HCl 100 mg 07/30/17 09:35 07/31/17 06:23 Apresoline - PO 100 mg TID ROSA MARIA Administration Sodium Chloride 250 mls @ 3,000 mls/hr 07/30/17 11:13 Normal Saline - IV 07/31/17 11:14 PRN PRN Hypotension during Dialysis Sodium Chloride 250 mls @ 3,000 mls/hr 07/30/17 11:14 Normal Saline - IV 07/31/17 11:14 PRN PRN Hypotension during Dialysis Sodium Chloride 250 mls @ 3,000 mls/hr 07/30/17 12:24 Normal Saline - IV 07/31/17 12:24 PRN PRN Hypotension during Dialysis Dextrose/Sodium Chloride 1,000 mls @ 42 mls/hr 07/30/17 20:30 07/30/17 20:36 D5-1/2ns - IV 42 mls/hr ASDIR ROSA MARIA Administration Insulin Aspart 1 vial 07/30/17 22:00 07/31/17 06:18 Novolog Vial Sliding Scale - SQ 2 units ACHS ROSA MARIA Administration Protocol Insulin Detemir 17 units 07/30/17 22:00 07/31/17 06:20 Levemir Vial SQ 17 units BID@0700,2200 ROSA MARIA Administration Labetalol HCl 400 mg 07/30/17 14:00 07/31/17 06:17 Normodyne - PO 400 mg TID ROSA MARIA Administration Mupirocin 1 applic 07/30/17 10:00 07/30/17 21:46 Bactroban Ointment (For Decolonization) - NS 08/04/17 09:59 1 applic BID ROSA MARIA Administration Nifedipine 30 mg 07/30/17 12:45 07/30/17 13:17 Procardia Xl - PO Not Given DAILY ROSA MARIA Oxycodone HCl 10 mg 07/30/17 22:40 07/31/17 04:00 Roxicodone - PO 10 mg Q6H PRN Administration PAIN Ranitidine HCl 150 mg 07/30/17 10:00 07/30/17 10:24 Zantac - PO 150 mg DAILY ROSA MARIA Administration Sevelamer Carbonate 1,600 mg 07/30/17 12:00 07/30/17 18:30 Renvela - PO 1,600 mg TIDCM ROSA MARIA Administration ASSESSMENT/PLAN: Patient is a 26yo female presented with DKa , has hx of multiple admissions due to DKA And noncompliance. # s/p DKA in the setting of poor compliance S/P insulin DRIP # S/P diarrhea resolved with no diarrhea in hospital all day. # HTN Continue home meds # ESRD ON HD M, W, F # Chronic foot ulcer right foot without appearance of acute infection R/o osteo , Patient is going for MRI Prophylaxis: SQ heparin Visit type - Emergency Visit Emergency Visit: Yes ED Registration Date: 07/30/17 Care time: The patient presented to the Emergency Department on the above date and was hospitalized for further evaluation of their emergent condition. - New Patient This patient is new to me today: No - Critical Care Critical Care patient: No - Discharge Referral Referred to [facility] Med P.C.: No
[2017-07-31 08:38] LABS: INR 1.19 (0.82-1.09); PROTHROMBIN TIME (PATIENT) 13.4 SEC (9.7-13.0)
[2017-07-31 08:40] LABS: ACTIVATED PTT 28.7 SECONDS (26.9-34.4)
[2017-07-31 09:04] LABS: ANION GAP 6 (8-16); BLOOD UREA NITROGEN 18 mg/dL (7-18); CALCIUM 7.7 mg/dL (8.5-10.1); CHLORIDE 99 mmol/L (98-107); CO2 31 mmol/L (21-32); CREATININE 2.9 mg/dL (0.55-1.02); GLUCOSE,RANDOM 103 mg/dL (74-106); MAGNESIUM 1.9 mg/dL (1.8-2.4); PHOSPHOROUS 2.7 mg/dL (2.5-4.9); POTASSIUM 3.9 mmol/L (3.5-5.1); SODIUM 136 mmol/L (136-145)
--- NOTE | 2017-07-31 10:04 | PN ---
Progress Note (short form) - Note Progress Note: PULMONARY/CCM Pt seen and examined in the ICU. Off insulin gtt. Getting dialyzed this AM. Upset about diabetic diet. Last Vital Signs Temp Pulse Resp BP Pulse Ox 98.3 F 82 18 148/92 99 07/31/17 06:25 07/31/17 09:30 07/31/17 09:30 07/31/17 09:30 07/30/17 20:05 Intake & Output 07/28/17 07/29/17 07/30/17 07/31/17 23:59 23:59 23:59 23:59 Intake Total 666.5 754 Balance 666.5 754 Weight 71.668 kg 71.384 kg Gen: NAD at rest Heart: RRR, +systolic murmur Lung: decreased breath sounds at the bases Abd: soft, nontender Ext: + edema CBC, BMP 07/31/17 06:30 07/31/17 06:30 Active Medications Calcium Carbonate (Os-Gilberto 500mg -) 500 mg PO DAILY [facility] Last Admin: 07/30/17 12:46 Dose: 500 mg Chlorhexidine Gluconate (Hibiclens For Decolonization -) 1 applic TP HS [facility] Last Admin: 07/30/17 21:47 Dose: 1 applic Clonidine (Catapres -) 0.3 mg PO TID [facility] Last Admin: 07/31/17 06:17 Dose: 0.3 mg Heparin Sodium (Porcine) (Heparin -) 5,000 unit SQ BID [facility] Last Admin: 07/30/17 21:47 Dose: Not Given Hydralazine HCl (Apresoline -) 100 mg PO TID [facility] Last Admin: 07/31/17 06:23 Dose: 100 mg Sodium Chloride (Normal Saline -) 250 mls @ 3,000 mls/hr IV PRN PRN PRN Reason: Hypotension during Dialysis Stop: 07/31/17 11:14 Sodium Chloride (Normal Saline -) 250 mls @ 3,000 mls/hr IV PRN PRN PRN Reason: Hypotension during Dialysis Stop: 07/31/17 11:14 Sodium Chloride (Normal Saline -) 250 mls @ 3,000 mls/hr IV PRN PRN PRN Reason: Hypotension during Dialysis Stop: 07/31/17 12:24 Dextrose/Sodium Chloride (D5-1/2ns -) 1,000 mls @ 42 mls/hr IV ASDIR [facility] Last Admin: 07/30/17 20:36 Dose: 42 mls/hr Insulin Aspart (Novolog Vial Sliding Scale -) 1 vial SQ ACHS [facility] PRN Reason: Protocol Last Admin: 07/31/17 06:18 Dose: 2 units Insulin Detemir (Levemir Vial) 17 units SQ BID@0700,2200 [facility] Last Admin: 07/31/17 06:20 Dose: 17 units Labetalol HCl (Normodyne -) 400 mg PO TID [facility] Last Admin: 07/31/17 06:17 Dose: 400 mg Mupirocin (Bactroban Ointment (For Decolonization) -) 1 applic NS BID [facility] Stop: 08/04/17 09:59 Last Admin: 07/30/17 21:46 Dose: 1 applic Nifedipine (Procardia Xl -) 30 mg PO DAILY [facility] Last Admin: 07/30/17 13:17 Dose: Not Given Oxycodone HCl (Roxicodone -) 10 mg PO Q6H PRN PRN Reason: PAIN Last Admin: 07/31/17 04:00 Dose: 10 mg Ranitidine HCl (Zantac -) 150 mg PO DAILY [facility] Last Admin: 07/30/17 10:24 Dose: 150 mg Sevelamer Carbonate (Renvela -) 1,600 mg PO TIDCM [facility] Last Admin: 07/30/17 18:30 Dose: 1,600 mg A/P Diabetic Ketoacidosis/Hyperglcyemic Hyperosmolar State resolved ESRD on HD Chronic Right Foot Ulcer HTN h/o PE - continue levemir - glucose control - HD pre renal - d/c IVF - PO as tolerated - DVT prophylaxis - can monitor on floor
[2017-07-31] MEDS ORDERED: PT OWN MED DRAWER 7, Y5N ONE (10:57)
[2017-07-31] MEDS: SEVELAMER CARBONATE 800 MG TAB (FP) PO SCH ×3 (11:01→18:39)
[2017-07-31] MEDS: CALCIUM (OYSTER SHELL) 500 MG TABLET (FP) PO SCH (11:01)
[2017-07-31] MEDS: HEPARIN NA (PORCINE) 5,000 UNITS/ML 1ML VIAL SQ SCH ×3 (11:02→23:00)
[2017-07-31] MEDS: RANITIDINE HCL 150 MG TABLET (FP) PO SCH (11:02)
[2017-07-31] MEDS: NIFEdipine E.R. 30 MG TABLET (FP) PO SCH (11:02)
--- NOTE | 2017-07-31 11:33 | EKG ---
Test Reason : Blood Pressure : / mmHG Vent. Rate : 080 BPM Atrial Rate : 080 BPM P-R Int : 210 ms QRS Dur : 088 ms QT Int : 394 ms P-R-T Axes : 045 097 046 degrees QTc Int : 454 ms SINUS RHYTHM WITH 1ST DEGREE A-V BLOCK RIGHTWARD AXIS LOW VOLTAGE QRS CANNOT RULE OUT ANTERIOR INFARCT (CITED ON OR BEFORE 04-MAR-2017) ABNORMAL ECG WHEN COMPARED WITH ECG OF 30-JUL-2017 05:51, NO SIGNIFICANT CHANGE WAS FOUND Confirmed by WESLEY SABILLON MD ([id number]) on 07/31/2017 11:32:55 AM Referred By: Confirmed By:WESLEY SABILLON MD
--- NOTE | 2017-07-31 13:40 | PN ---
Progress Note (short form) - Note Progress Note: seen in ICU s/p hemodialysis treatment uneventful Current Medications Calcium Carbonate (Os-Gilberto 500mg -) 500 mg PO DAILY [facility] Last Admin: 07/31/17 11:01 Dose: 500 mg Chlorhexidine Gluconate (Hibiclens For Decolonization -) 1 applic TP HS [facility] Last Admin: 07/30/17 21:47 Dose: 1 applic Clonidine (Catapres -) 0.3 mg PO TID [facility] Last Admin: 07/31/17 06:17 Dose: 0.3 mg Heparin Sodium (Porcine) (Heparin -) 5,000 unit SQ BID [facility] Last Admin: 07/31/17 11:02 Dose: Not Given Hydralazine HCl (Apresoline -) 100 mg PO TID [facility] Last Admin: 07/31/17 06:23 Dose: 100 mg Insulin Aspart (Novolog Vial Sliding Scale -) 1 vial SQ ACHS [facility] PRN Reason: Protocol Last Admin: 07/31/17 11:58 Dose: Not Given Insulin Detemir (Levemir Vial) 17 units SQ BID@0700,2200 [facility] Last Admin: 07/31/17 06:20 Dose: 17 units Labetalol HCl (Normodyne -) 400 mg PO TID [facility] Last Admin: 07/31/17 06:17 Dose: 400 mg Mupirocin (Bactroban Ointment (For Decolonization) -) 1 applic NS BID [facility] Stop: 08/04/17 09:59 Last Admin: 07/30/17 21:46 Dose: 1 applic Nifedipine (Procardia Xl -) 30 mg PO DAILY [facility] Last Admin: 07/31/17 11:02 Dose: 30 mg Oxycodone HCl (Roxicodone -) 10 mg PO Q6H PRN PRN Reason: PAIN Last Admin: 07/31/17 04:00 Dose: 10 mg Ranitidine HCl (Zantac -) 150 mg PO DAILY [facility] Last Admin: 07/31/17 11:02 Dose: 150 mg Sevelamer Carbonate (Renvela -) 1,600 mg PO TIDCM [facility] Last Admin: 07/31/17 11:01 Dose: 1,600 mg Last Vital Signs Temp Pulse Resp BP Pulse Ox 82 F L 82 18 171/95 99 07/31/17 12:00 07/31/17 10:31 07/31/17 12:00 07/31/17 12:00 07/31/17 11:00 CBC, BMP 07/31/17 06:30 07/31/17 06:30
--- NOTE | 2017-07-31 14:09 | CONSULT ---
Consult - text type - Consultation Consultation Note: Podiatry Consultation: 26 year old IDDM F well known to me presented to hospital for admission with diarrhea, DKA. Patient consistently noncompliant with diet, nutrition, glycemic control and local wound care. She has not maintained follow up with wound healing center. Does not stay off her feet as well. Denies F/V/N/C/SOB/ CP. Afebrile, VSS. CATRACHITA: R foot: pedal pulses palpable, TG wnl, CFT brisk to all toes. There is a plantar lateral arch diabetic ulcer with mostly granular base, small area of fibrotic slough, hyperkeratotic and macerated borders, no probing to bone, no purulence, no fluctuance, no ascending cellulitis, no soft tissue crepitus, no signs of active infection. Wound Cx: diphtheroid/staph coag negative WBC: 9.4 ESR: 101 R foot XR: cortical erosions fourth digit; prior arthroplasty fifth digit Imp: 26 year old poorly controlled IDDM F with R plantar midfoot diabetic ulcer 1. Bactroban + DSD R foot 2. Offloading measures 3. Glycemic control 4. Agree with MRI R foot 5. Thank you for the courtesy of this consultation. Delfino Dubon DPM
[2017-07-31] MEDS ORDERED: LABETALOL HCL 100 MG TABLET (FP) ONE (14:19)
[2017-07-31] MEDS: MUPIROCIN 2% TOPICAL OINTMENT FOR DECOLONIZATION NS SCH (14:27)
--- NOTE | 2017-07-31 18:26 | PN ---
Progress Note, Physician History of Present Illness: Pt transferred to medical floor. Remains afebrile. States she rotated her arm a few wks ago and now has fullness in Rt clavicle. No pain otherwise. - Current Medication List Current Medications: Active Medications Calcium Carbonate (Os-Gilberto 500mg -) 500 mg PO DAILY ROSA MARIA Clonidine (Catapres -) 0.3 mg PO TID ROSA MARIA Heparin Sodium (Porcine) (Heparin -) 5,000 unit SQ BID ROSA MARIA Hydralazine HCl (Apresoline -) 100 mg PO TID ROSA MARIA Insulin Aspart (Novolog Vial Sliding Scale -) 1 vial SQ ACHS ROSA MARIA PRN Reason: Protocol Insulin Detemir (Levemir Vial) 17 units SQ BID@0700,2200 ROSA MARIA Labetalol HCl (Normodyne -) 400 mg PO TID ROSA MARIA Mupirocin (Bactroban 2% Ointment -) 1 applic TP DAILY ROSA MARIA Nifedipine (Procardia Xl -) 30 mg PO DAILY ROSA MARIA Oxycodone HCl (Roxicodone -) 10 mg PO Q6H PRN PRN Reason: PAIN LEVEL 4 - 6 Ranitidine HCl (Zantac -) 150 mg PO DAILY ROSA MARIA Sevelamer Carbonate (Renvela -) 1,600 mg PO TIDCM ROSA MARIA - Objective Vital Signs: Vital Signs Temperature 98.5 F 07/31/17 17:53 Pulse Rate 86 07/31/17 17:53 Respiratory Rate 20 07/31/17 17:53 Blood Pressure 160/85 07/31/17 17:53 O2 Sat by Pulse Oximetry (%) 99 07/31/17 11:00 Constitutional: Yes: No Distress, Calm Neck: Yes: Supple Cardiovascular: Yes: Regular Rate and Rhythm Respiratory: Yes: Regular Gastrointestinal: Yes: Normal Bowel Sounds, Soft Musculoskeletal: Yes: Other (Rt SCM/clavicle region fullness) Extremities: Yes: WNL, Other (Rt foot ulcer without purulence, erythema, or warmth) Neurological: Yes: Alert, Oriented Labs: CBC, BMP 07/31/17 06:30 07/31/17 06:30 INR, PTT INR 1.19 (0.82-1.09) H 07/31/17 06:30 - ....Imaging X-ray: Report Reviewed Problem List - Problems (1) Acute on chronic diastolic CHF (congestive heart failure) Code(s): I50.33 - ACUTE ON CHRONIC DIASTOLIC (CONGESTIVE) HEART FAILURE (2) DKA (diabetic ketoacidosis) Code(s): E13.10 - OTH DIABETES MELLITUS WITH KETOACIDOSIS WITHOUT COMA Qualifiers: Diabetes mellitus type: type 1 (3) Diabetic foot ulcer Code(s): E11.621 - TYPE 2 DIABETES MELLITUS WITH FOOT ULCER; L97.509 - NON- PRESSURE CHRONIC ULCER OTH PRT UNSP FOOT W UNSP SEVERITY Qualifiers: Diabetes mellitus type: type 1 Laterality: right (4) ESRD (end stage renal disease) on dialysis Code(s): N18.6 - END STAGE RENAL DISEASE; Z99.2 - DEPENDENCE ON RENAL DIALYSIS (5) HTN (hypertension) Code(s): I10 - ESSENTIAL (PRIMARY) HYPERTENSION Assessment/Plan 26 y.o. female with DM, peripheral neuropathy, ESRD, LE foot ulcer admitted for DKA with Rt foot ulcer, afebrile, without leukocytosis, ESR elevated -- continue monitor off antibiotics -- superficial wound culture with normal skin marcus -- recommend MRI RLE (previous in 06/20 without definite evidence of OM)
[2017-08-01] MEDS: oxyCODONE HCL 5 MG TABLET PO PRN ×3 (05:53→22:59)
[2017-08-01] MEDS: INSULIN SLIDING SCALE (NOVOLOG) 1 VIAL SQ SCH ×4 (06:48→22:55)
[2017-08-01] MEDS: hydrALAZINE HCL 50 MG TABLET (FP) PO SCH ×3 (06:49→22:52)
[2017-08-01] MEDS: LABETALOL HCL 200 MG TABLET (FP) PO SCH ×3 (06:49→22:55)
[2017-08-01] MEDS: INSULIN (LEVEMIR) 100 UNITS/ML UNITS SQ SCH ×2 (06:49→22:56)
[2017-08-01] MEDS: cloNIDine HCL 0.1 MG TABLET PO SCH ×3 (06:50→22:53)
[2017-08-01] MEDS ORDERED: INSULIN (NOVOLOG) ASPART 100 UNITS/ML 10ML VIAL ONE (07:17)
[2017-08-01 08:10] LABS: BASO % 0.8 % (0-2.0); EOS % 2.9 % (0-4.5); HEMOGLOBIN 9.4 GM/dL (10.7-15.3); LYMPH % 12.3 % (8-40); MCH 27.2 pg (25.7-33.7); MCHC 32.3 g/dl (32.0-36.0); MEAN CELL VOLUME 84.2 fl (80-96); MEAN PLT VOLUME 8.7 fl (7.5-11.1); MONO % 16.3 % (3.8-10.2); NEUT % 67.7 % (42.8-82.8); PLATELET COUNT 347 K/MM3 (134-434); RBC 3.44 M/mm3 (3.60-5.2); RDW 16.7 % (11.6-15.6); WHITE BLOOD COUNT 6.8 K/mm3 (4.0-10.0)
[2017-08-01] MEDS: SEVELAMER CARBONATE 800 MG TAB (FP) PO SCH ×3 (08:10→17:17)
[2017-08-01 08:36] LABS: ANION GAP 10 (8-16); BLOOD UREA NITROGEN 17 mg/dL (7-18); CALCIUM 8.1 mg/dL (8.5-10.1); CHLORIDE 98 mmol/L (98-107); CO2 30 mmol/L (21-32); CREATININE 3.3 mg/dL (0.55-1.02); GLUCOSE,RANDOM 192 mg/dL (74-106); PHOSPHOROUS 2.9 mg/dL (2.5-4.9); POTASSIUM 3.7 mmol/L (3.5-5.1); SODIUM 138 mmol/L (136-145)
--- NOTE | 2017-08-01 09:21 | PN ---
<Evan Tomas - Last Filed: 08/01/17 15:00> Physical Exam: SUBJECTIVE: Patient seen and examined. no complaints, feels better since yesterday. had extended conversation regarding medication compliance, risks of noncompliance. explained to pt her grave prognosis if she continous to be noncompliant. pt seems apathetic to situation. expressed some frustration about not understanding her dietary and fluid restrictions, said she was given a list and "that's it" to help manage her DM/HTN/ESRD but was not told what her fluid restriction limit is per day or what to stay away from. currently eats whatever she wants. does not seem to use sliding scale novolog at home in addition to levemir. reviewed fluid restriction with patient using yellow jug for guidance on fluid limitation. recommended patient should ask telecommunications support specific questions of concern during consultation. incentive spirometer at bedside OBJECTIVE: Vital Signs Period Temp Pulse Resp BP Sys/Ames Pulse Ox Last 24 Hr 82 F-98.5 F 81-88 16-20 135-171/79-99 93-99 GENERAL: The patient is awake, alert, and fully oriented, in no acute distress. HEAD: Normal with no signs of trauma. EYES: PERRL, extraocular movements intact, sclera anicteric, conjunctiva clear. No ptosis. ENT: oropharynx clear without exudates, moist mucous membranes. NECK: Trachea midline, full range of motion, supple. right sternoclavicular joint with nontender swelling, skin intact, no erythema, FROM at right ac, no substernal pain. LUNGS: Breath sounds equal, clear to auscultation bilaterally, no wheezes, no crackles, no accessory muscle use. HEART: Regular rate and rhythm, S1, S2 without murmur, rub or gallop. ABDOMEN: Soft, nontender, nondistended but has abdominal fullness due to fluid overload, normoactive bowel sounds, no guarding, no rebound, EXTREMITIES: 2+ radial pulses, warm, well-perfused, no edema. +thrill and bruit at left fistula. 3+ b/l edema in LE. right foot with malodorous mid heel ulcer without surrounding erythema. very thin arms without edema. NEUROLOGICAL: Cranial nerves II through XII grossly intact. Normal speech. facial symmetry. decreased sensation in b/l LE PSYCH: Normal mood, normal affect. SKIN: Warm, dry, normal turgor, no rashes or lesions noted Laboratory Results - last 24 hr 07/30/17 07/30/17 07/31/17 12:36 13:05 06:30 WBC RBC Hgb Hct MCV MCH MCHC RDW Plt Count MPV Neutrophils % Lymphocytes % Monocytes % Eosinophils % Basophils % Sodium Potassium Chloride Carbon Dioxide Anion Gap BUN Creatinine POC Glucometer > 400 > 400 Random Glucose Hemoglobin A1c % 13.2 H Calcium Phosphorus Magnesium 07/31/17 07/31/17 07/31/17 11:58 17:22 22:48 WBC RBC Hgb Hct MCV MCH MCHC RDW Plt Count MPV Neutrophils % Lymphocytes % Monocytes % Eosinophils % Basophils % Sodium Potassium Chloride Carbon Dioxide Anion Gap BUN Creatinine POC Glucometer 111.31620 106 405 Random Glucose Hemoglobin A1c % Calcium Phosphorus Magnesium 08/01/17 08/01/17 08/01/17 06:40 06:40 06:46 WBC 6.8 RBC 3.44 L Hgb 9.4 L Hct 29.0 L MCV 84.2 MCH 27.2 MCHC 32.3 RDW 16.7 H Plt Count 347 MPV 8.7 Neutrophils % 67.7 Lymphocytes % 12.3 Monocytes % 16.3 H Eosinophils % 2.9 Basophils % 0.8 Sodium 138 Potassium 3.7 Chloride 98 Carbon Dioxide 30 Anion Gap 10 BUN 17 Creatinine 3.3 H POC Glucometer 201 Random Glucose 192 H Hemoglobin A1c % Calcium 8.1 L Phosphorus 2.9 Magnesium 2.0 Active Medications Generic Name Dose Route Start Last Admin Trade Name Freq PRN Reason Stop Dose Admin Calcium Carbonate 500 mg 08/01/17 10:00 Os-Юлия 500mg - PO DAILY ROSA MARIA Clonidine 0.3 mg 07/31/17 22:00 08/01/17 06:50 Catapres - PO 0.3 mg TID ROSA MARIA Administration Heparin Sodium (Porcine) 5,000 unit 07/31/17 22:00 07/31/17 23:00 Heparin - SQ Not Given BID ROSA MARIA Hydralazine HCl 100 mg 07/31/17 22:00 08/01/17 06:49 Apresoline - PO 100 mg TID ROSA MARIA Administration Insulin Aspart 1 vial 07/31/17 16:30 08/01/17 06:48 Novolog Vial Sliding Scale - SQ 3 unit ACHS ROSA MARIA Administration Protocol Insulin Detemir 17 units 07/31/17 22:00 08/01/17 06:49 Levemir Vial SQ 17 unit BID@0700,2200 ROSA MARIA Administration Labetalol HCl 400 mg 07/31/17 22:00 08/01/17 06:49 Normodyne - PO 400 mg TID ROSA MARIA Administration Mupirocin 1 applic 08/01/17 10:00 Bactroban 2% Ointment - TP DAILY ROSA MARIA Nifedipine 30 mg 08/01/17 10:00 Procardia Xl - PO DAILY ROSA MARIA Oxycodone HCl 10 mg 07/31/17 16:05 08/01/17 05:53 Roxicodone - PO [address] vale Q6H PRN Administration PAIN LEVEL 4 - 6 Ranitidine HCl 150 mg 08/01/17 10:00 Zantac - PO DAILY ROSA MARIA Sevelamer Carbonate 1,600 mg 07/31/17 17:30 08/01/17 08:10 Renvela - PO 1,600 mg TIDCM ROSA MARIA Administration called the pharmacy: pt has not picked up medications in a while, has different doses for some meds in comparison to [facility] june 24 on clinda 1 week course- by dr. levine losartan 100mg 05/2017 dr. garcia, 1 time for 30days no repeat rx labetalol [address] garcia written 05/[address] garcia picked up 05/[address]tina glasgow BID, as per patient she takes 17units BID clonidine written for 0.6 TID, however pt says she only takes 0.3mg TID - pt has enough medications, will not need prescriptions at discharge ASSESSMENT/PLAN: 26 yr old woman with uncontrolled DM/HTN, ESRD on dialysis, hx of PE(completed course of AC), right foot ulcer, admitted to ICU for HHS with anion gap& ketoacidosid since resolved, now transferred to med-surg. # uncontrolled DM, poorly compliant, a1c 13 - resolved DKA with HHS, gap closed, electrolytes corrected - NISS and BGM ACHS, levemir 17units sq BID - Dr. Ronquillo consulted for difficult to control DM, may benefit from continuous glucose monitoring device such as dexcom or similar - patient said she tried the insulin pump in the past but she was having hypoglycemic episodes, but she did not have her pump adjusted rather she removed it - diabetic teaching #Chronic foot ulcer right foot without appearance of acute infection with elevated ESR, monitor off abx - osteo seen on foot xray, MRI pending for further evaluation - consult dr. sales rec: Bactroban + DSD R foot, Offloading measures - ID consult: Dr. Rodrigues - chronic pain oxycodone 10mg po q6hr prn - PT consult, pt at baseline uses a roller walker at home #Diarrhea - resolved, stool studies pending, low suspicion for acute GI infection, likely due to HHS/DKA state #Clavicle xray negative for fracture/acute process, pt had a c/o pain from rotating her arm few weeks ago - will monitor the swelling for progression #ESRD on HD - MWF - followed by Dr. Vo, outpatient dialysis physician is Dr. Garcia - continue renvela and os юлия - renal fluid restriction, limit IVF when possible - daily weights #HTN - uncontrolled, continue home medications - procardia xl 30mg, labetalol 400mg po TID, hydralazine, clonidine #hx of MDRO, placed on contact precautions #Prophylaxis SQ heparin #Diet: renal/diabetic/low Na Visit type - Emergency Visit Emergency Visit: No - New Patient This patient is new to me today: Yes Date on this admission: 08/01/17 - Critical Care Critical Care patient: No - Discharge Referral Referred to [facility] Med P.C[facility] No <Belem Herrera - Last Filed: 08/01/17 18:51> Physical Exam: Waiting for MRI result to r/o Osteo
[2017-08-01] MEDS: MUPIROCIN 2% TOPICAL OINTMENT 22 GM TUBE TP SCH (11:23)
[2017-08-01] MEDS: RANITIDINE HCL 150 MG TABLET (FP) PO SCH (11:23)
[2017-08-01] MEDS: CALCIUM (OYSTER SHELL) 500 MG TABLET (FP) PO SCH (11:23)
[2017-08-01] MEDS: NIFEdipine E.R. 30 MG TABLET (FP) PO SCH (11:26)
[2017-08-01] MEDS: HEPARIN NA (PORCINE) 5,000 UNITS/ML 1ML VIAL SQ SCH ×2 (11:26→22:54)
--- NOTE | 2017-08-01 17:53 | PN ---
Progress Note, Physician History of Present Illness: Pt states she feels well. Has no new complaints. Sitting up, eating. - Current Medication List Current Medications: Active Medications Calcium Carbonate (Os-Gilberto 500mg -) 500 mg PO DAILY [facility] Last Admin: 08/01/17 11:23 Dose: 500 mg Clonidine (Catapres -) 0.3 mg PO TID [facility] Last Admin: 08/01/17 14:47 Dose: 0.3 mg Heparin Sodium (Porcine) (Heparin -) 5,000 unit SQ BID [facility] Last Admin: 08/01/17 11:26 Dose: Not Given Hydralazine HCl (Apresoline -) 100 mg PO TID [facility] Last Admin: 08/01/17 14:49 Dose: 100 mg Insulin Aspart (Novolog Vial Sliding Scale -) 1 vial SQ ACHS [facility] PRN Reason: Protocol Last Admin: 08/01/17 17:17 Dose: Not Given Insulin Detemir (Levemir Vial) 17 units SQ BID@0700,2200 [facility] Last Admin: 08/01/17 06:49 Dose: 17 unit Labetalol HCl (Normodyne -) 400 mg PO TID [facility] Last Admin: 08/01/17 14:49 Dose: 400 mg Mupirocin (Bactroban 2% Ointment -) 1 applic TP DAILY [facility] Last Admin: 08/01/17 11:23 Dose: 1 applic Nifedipine (Procardia Xl -) 30 mg PO DAILY [facility] Last Admin: 08/01/17 11:26 Dose: 30 mg Oxycodone HCl (Roxicodone -) 10 mg PO Q6H PRN PRN Reason: PAIN LEVEL 4 - 6 Last Admin: 08/01/17 14:48 Dose: 10 mg Ranitidine HCl (Zantac -) 150 mg PO DAILY [facility] Last Admin: 08/01/17 11:23 Dose: 150 mg Sevelamer Carbonate (Renvela -) 1,600 mg PO TIDCM [facility] Last Admin: 08/01/17 17:17 Dose: 1,600 mg - Objective Vital Signs: Vital Signs Temperature 98.4 F 08/01/17 16:56 Pulse Rate 86 08/01/17 16:56 Respiratory Rate 18 08/01/17 16:56 Blood Pressure 185/98 08/01/17 16:56 O2 Sat by Pulse Oximetry (%) 100 08/01/17 09:00 Constitutional: Yes: No Distress, Calm Cardiovascular: Yes: Regular Rate and Rhythm Respiratory: Yes: Regular Gastrointestinal: Yes: Normal Bowel Sounds, Soft Extremities: Yes: Other (Rt foot ulcer without drainage/erythema) Neurological: Yes: Alert, Oriented Labs: CBC, BMP 08/01/17 06:40 08/01/17 06:40 INR, PTT INR 1.19 (0.82-1.09) H 07/31/17 06:30 Problem List - Problems (1) Acute on chronic diastolic CHF (congestive heart failure) Code(s): I50.33 - ACUTE ON CHRONIC DIASTOLIC (CONGESTIVE) HEART FAILURE (2) DKA (diabetic ketoacidosis) Code(s): E13.10 - OTH DIABETES MELLITUS WITH KETOACIDOSIS WITHOUT COMA Qualifiers: Diabetes mellitus type: type 1 (3) Diabetic foot ulcer Code(s): E11.621 - TYPE 2 DIABETES MELLITUS WITH FOOT ULCER; L97.509 - NON- PRESSURE CHRONIC ULCER OTH PRT UNSP FOOT W UNSP SEVERITY Qualifiers: Diabetes mellitus type: type 1 Laterality: right (4) ESRD (end stage renal disease) on dialysis Code(s): N18.6 - END STAGE RENAL DISEASE; Z99.2 - DEPENDENCE ON RENAL DIALYSIS (5) HTN (hypertension) Code(s): I10 - ESSENTIAL (PRIMARY) HYPERTENSION Assessment/Plan 26 y.o. female with DM, peripheral neuropathy, ESRD, admitted for DKA with Rt foot ulcer, afebrile, without leukocytosis, ESR elevated, superficial wound cultures with normal marcus DKA improved ESRD - receiving HD Rt foot ulcer r/o OM - MRI without obvious findings in the past Elevated ESR -- MRI pending -- continue monitor off antibiotics pt currently stable at this time
--- NOTE | 2017-08-01 19:52 | PN ---
Progress Note (short form) - Note Progress Note: transferred to medical floor s/p hemodialysis treatment uneventful Current Medications Calcium Carbonate (Os-Gilberto 500mg -) 500 mg PO DAILY [facility] Last Admin: 08/01/17 11:23 Dose: 500 mg Clonidine (Catapres -) 0.3 mg PO TID [facility] Last Admin: 08/01/17 14:47 Dose: 0.3 mg Heparin Sodium (Porcine) (Heparin -) 5,000 unit SQ BID [facility] Last Admin: 08/01/17 11:26 Dose: Not Given Hydralazine HCl (Apresoline -) 100 mg PO TID [facility] Last Admin: 08/01/17 14:49 Dose: 100 mg Insulin Aspart (Novolog Vial Sliding Scale -) 1 vial SQ ACHS [facility] PRN Reason: Protocol Last Admin: 08/01/17 17:17 Dose: Not Given Insulin Detemir (Levemir Vial) 17 units SQ BID@0700,2200 [facility] Last Admin: 08/01/17 06:49 Dose: 17 unit Labetalol HCl (Normodyne -) 400 mg PO TID [facility] Last Admin: 08/01/17 14:49 Dose: 400 mg Mupirocin (Bactroban 2% Ointment -) 1 applic TP DAILY [facility] Last Admin: 08/01/17 11:23 Dose: 1 applic Nifedipine (Procardia Xl -) 30 mg PO DAILY [facility] Last Admin: 08/01/17 11:26 Dose: 30 mg Oxycodone HCl (Roxicodone -) 10 mg PO Q6H PRN PRN Reason: PAIN LEVEL 4 - 6 Last Admin: 08/01/17 14:48 Dose: 10 mg Ranitidine HCl (Zantac -) 150 mg PO DAILY [facility] Last Admin: 08/01/17 11:23 Dose: 150 mg Sevelamer Carbonate (Renvela -) 1,600 mg PO TIDCM [facility] Last Admin: 08/01/17 17:17 Dose: 1,600 mg Last Vital Signs Temp Pulse Resp BP Pulse Ox 98.4 F 86 18 185/98 100 08/01/17 16:56 08/01/17 16:56 08/01/17 16:56 08/01/17 16:56 08/01/17 09:00 Lungs clear Heart reg Abd soft nontender Ext mod edema CBC, BMP 08/01/17 06:40 08/01/17 06:40 CBC, BMP 07/31/17 06:30 07/31/17 06:30 IMP- esrd on hd s/p dka mild fluid overload s/p extra dialysis yesterday Plan- HD tomorrow
[2017-08-02] MEDS: cloNIDine HCL 0.1 MG TABLET PO SCH ×2 (06:07→13:44)
[2017-08-02] MEDS: hydrALAZINE HCL 50 MG TABLET (FP) PO SCH ×2 (06:07→13:45)
[2017-08-02] MEDS: LABETALOL HCL 200 MG TABLET (FP) PO SCH ×2 (06:07→14:01)
[2017-08-02] MEDS: oxyCODONE HCL 5 MG TABLET PO PRN ×2 (06:12→13:41)
[2017-08-02] MEDS: INSULIN (LEVEMIR) 100 UNITS/ML UNITS SQ SCH (06:34)
[2017-08-02] MEDS: INSULIN SLIDING SCALE (NOVOLOG) 1 VIAL SQ SCH ×3 (06:34→16:55)
[2017-08-02] MEDS: NIFEdipine E.R. 30 MG TABLET (FP) PO SCH (09:00)
[2017-08-02] MEDS: CALCIUM (OYSTER SHELL) 500 MG TABLET (FP) PO SCH (09:00)
[2017-08-02] MEDS: SEVELAMER CARBONATE 800 MG TAB (FP) PO SCH ×3 (09:00→17:11)
[2017-08-02] MEDS: RANITIDINE HCL 150 MG TABLET (FP) PO SCH (09:00)
[2017-08-02] MEDS: HEPARIN NA (PORCINE) 5,000 UNITS/ML 1ML VIAL SQ SCH (09:00)
[2017-08-02] MEDS: MUPIROCIN 2% TOPICAL OINTMENT 22 GM TUBE TP SCH (10:00)
--- NOTE | 2017-08-02 11:32 | PN ---
Progress Note (short form) - Note Progress Note: Podiatry: R foot DFU. Still waiting on MRI R foot to evaluate for osteomyelitis. Will see tomorrow. Delfino Dubon DPM
--- NOTE | 2017-08-02 12:10 | PN ---
Progress Note, Physician History of Present Illness: stable doing well no complaints - Current Medication List Current Medications: Active Medications Calcium Carbonate (Os-Gilberto 500mg -) 500 mg PO DAILY [facility] Last Admin: 08/01/17 11:23 Dose: 500 mg Clonidine (Catapres -) 0.3 mg PO TID [facility] Last Admin: 08/02/17 06:07 Dose: 0.3 mg Heparin Sodium (Porcine) (Heparin -) 5,000 unit SQ BID [facility] Last Admin: 08/01/17 22:54 Dose: Not Given Hydralazine HCl (Apresoline -) 100 mg PO TID [facility] Last Admin: 08/02/17 06:07 Dose: 100 mg Insulin Aspart (Novolog Vial Sliding Scale -) 1 vial SQ ACHS [facility] PRN Reason: Protocol Last Admin: 08/02/17 06:34 Dose: 2 unit Insulin Detemir (Levemir Vial) 17 units SQ BID@0700,2200 [facility] Last Admin: 08/02/17 06:34 Dose: 17 unit Labetalol HCl (Normodyne -) 400 mg PO TID [facility] Last Admin: 08/02/17 06:07 Dose: 400 mg Mupirocin (Bactroban 2% Ointment -) 1 applic TP DAILY [facility] Last Admin: 08/01/17 11:23 Dose: 1 applic Nifedipine (Procardia Xl -) 30 mg PO DAILY [facility] Last Admin: 08/01/17 11:26 Dose: 30 mg Oxycodone HCl (Roxicodone -) 10 mg PO Q6H PRN PRN Reason: PAIN LEVEL 4 - 6 Last Admin: 08/02/17 06:12 Dose: 10 mg Ranitidine HCl (Zantac -) 150 mg PO DAILY [facility] Last Admin: 08/01/17 11:23 Dose: 150 mg Sevelamer Carbonate (Renvela -) 1,600 mg PO TIDCM [facility] Last Admin: 08/01/17 17:17 Dose: 1,600 mg - Objective Vital Signs: Vital Signs Temperature 97.6 F 08/02/17 09:20 Pulse Rate 87 08/02/17 09:55 Respiratory Rate 18 08/02/17 09:55 Blood Pressure 146/83 08/02/17 09:55 O2 Sat by Pulse Oximetry (%) 100 08/01/17 21:00 Constitutional: Yes: No Distress, Calm, Thin Cardiovascular: Yes: Regular Rate and Rhythm Respiratory: Yes: Regular, CTA Bilaterally Gastrointestinal: Yes: Normal Bowel Sounds, Soft Musculoskeletal: Yes: Other Extremities: Yes: Other Neurological: Yes: Alert, Oriented Psychiatric: Yes: Alert, Oriented Labs: CBC, BMP 08/01/17 06:40 08/01/17 06:40 INR, PTT INR 1.19 (0.82-1.09) H 07/31/17 06:30 Assessment/Plan 26 year old woman with ESRD on HD , DM type 1, Hx of PE, LE wound who is non- compliant with dietary and fluid restrictions who presents with a non-healing wound on her right foot, diarrhea and found to have DKA. patients symptoms are mostly related to the dka process importantly patients foot xray is showing suspicion of osteo DKA LE wound ESRD on HD with fluid overload Hyperkalemia Hypertension CKD related Anemia dirrhoea plan awaiting mri of the leg monitor no abx at this time will await mri result if negative continue current mgmt
[2017-08-02 16:04] VITALS: BP 148/78; PULSE 80; TEMP 97.2
[2017-08-02] MEDS ORDERED: INSULIN (LEVEMIR) 100 UNITS/ML UNITS SQ ONE (17:23)
--- NOTE | 2017-08-02 18:43 | PN ---
Progress Note (short form) - Note Progress Note: Renal follow up for ESRD on HD Pt seen and examined during dialysis BP stable, UG goal 4L AVF with good flow pt w/o complaints Vital Signs Temperature 97.2 F L 08/02/17 14:00 Pulse Rate 80 08/02/17 14:00 Respiratory Rate 18 08/02/17 14:00 Blood Pressure 148/78 08/02/17 14:00 O2 Sat by Pulse Oximetry (%) 100 08/02/17 09:00 Intake & Output 07/30/17 07/31/17 08/01/17 08/02/17 23:59 23:59 23:59 23:59 Intake Total 666.5 1451 350 480 Balance 666.5 1451 350 480 Weight 71.668 kg 71.384 kg 70.125 kg NAD on NC O2 MMM, No JVD RRR, No M/R DEc Bs at lung bases soft NT/ND 2+ LE edema foot in dressing + AVF CBC, BMP 08/01/17 06:40 08/01/17 06:40 26 year old woman that is well known to our service from prior admissions with ESRD on HD (MWF), DM type 1, Hx of PE, LE wound who is non-compliant with dietary and fluid restrictions who presents with a non-healing wound on her right foot, diarrhea and found to have DKA. #DKA #LE wound #ESRD on HD with fluid overload #Hyperkalemia #Hypertension #CKD related Anemia Tolerating HD well with aggressive UF Off Abx as per ID Continue fluid restriction of 1.2 L daily Renal Diet will continue MACIE with HD f/u MRI report Thank you
--- NOTE | 2017-08-02 19:44 | DS ---
Physical Exam: Patient is getting discharge, MRI of the lower extremities negative for osteo, will discharge the patient home. <Belem Herrera - Last Filed: 08/02/17 21:05> Physical Exam: SUBJECTIVE: Patient seen and examined at bedside. No new complaints, no new events. MRI negative for osteo. OBJECTIVE: Vital Signs Period Temp Pulse Resp BP Sys/Ames Pulse Ox Last 24 Hr 97.2 F-98.1 F 80-91 18-20 133-195/73-116 100-100 PHYSICAL EXAM GENERAL: The patient is awake, alert, and fully oriented, in no acute distress. NECK: Trachea midline, full range of motion, supple. LUNGS: Breath sounds equal, clear to auscultation bilaterally, no wheezes, no crackles, no accessory muscle use. HEART: Regular rate and rhythm, S1, S2 without murmur, rub or gallop. ABDOMEN: Soft, nontender, nondistended, normoactive bowel sounds, no guarding, no rebound, no hepatosplenomegaly, no masses. EXTREMITIES: 2+ pulses, warm, well-perfused, no edema. NEUROLOGICAL: Cranial nerves II through X grossly intact. Normal speech, gait not observed. SKIN: Warm, dry, normal turgor, no rashes or lesions noted. LABS Laboratory Results - last 24 hr 08/01/17 08/02/17 08/02/17 22:48 06:05 13:48 POC Glucometer 159 178 86 HOSPITAL COURSE: Date of Admission:07/30/17 The patient is a 26 yo f w/ past medical history of HTN, DM, ESRD (dialysis on Wed, Wed, Wednesday), pulmonary embolism( 12/2016), and on home O2, who presents to the emergency department c/o watery diarrhea since the night prior to admission. She had a recent admission for a diabetic foot ulcer and has been on antibiotics as an outpatient. In the ED, she was found to have a blood pressure of 178/97, a lactic acidosis to 2.2, a potassium of 5.5, a blood glucose of 1172 , an anion gap of 16 and 2+ acetone in the blood. The patient was admitted to the ICU for hypertensive urgency and DKA. Infectious disease was consulted. Nephrology was consulted. Podiatry was consulted. Intensive care was consulted. A CXR showed atalectasis, but no consolidations or infiltrates. Xray of the right foot showed osteo at the right phalanx. The patient was treated with insulin drip, vancomycin, zosyn, hydralazine, labetolol, nifedipine and clonidine. The patient improved on the above treatment. Her blood pressure lowered back into a safe range. Her anion gap remained closed. Her blood glucose lowered back into a safe range. The patient was discharged with instructions to continue her home medication as prescribed. She was instructed to follow up at the [facility] resident clinic within one week of discharge home. She was also advised to follow up with her patient care provider and vascular surgeon within one week. Date of Discharge: 08/02/17 Minutes to complete discharge: 55 <Brayan Buckley - Last Filed: 08/03/17 18:35> Discharge Summary - Home Medications Comprehensive Discharge Medication List: Ambulatory Orders Sevelamer Carbonate [Renvela -] 1,600 mg PO TIDCM #60 tab 07/14/16 Losartan Potassium [Cozaar -] 100 mg PO DAILY 12/21/16 Labetalol HCl [Normodyne -] 400 mg PO TID #60 tablet 12/26/16 Insulin Sliding Scale [Novolog Vial Sliding Scale -] 0 vial SQ ACHS 06/03/17 Apixaban [Eliquis -] 5 mg PO BID tablet 06/04/17 Insulin Detemir [Levemir Flextouch] 17 unit SQ BID 06/21/17 Docusate Sodium [Colace -] 100 mg PO Q12H PRN capsule 06/23/17 Ranitidine [Zantac -] 150 mg PO DAILY tablet 06/23/17 hydrALAZINE HCL [Apresoline -] 100 mg PO TID 30 Days #60 tablet 06/23/17 cloNIDine HCL [Catapres -] 0.3 mg PO TID 06/28/17 Oxycodone HCl [Oxycontin] 10 mg PO PRN PRN 07/12/17 Calcium Carbonate [Calcium] mg PO ASDIR 07/30/17 Nifedipine ER [Procardia XL -] 30 mg PO DAILY 07/30/17 <Belem Herrera - Last Filed: 08/02/17 21:05> Reason For Visit: HYPERGLYCEMIA WITH KETOSIS - Home Medications Comprehensive Discharge Medication List: Ambulatory Orders Sevelamer Carbonate [Renvela -] 1,600 mg PO TIDCM #60 tab 07/14/16 Losartan Potassium [Cozaar -] 100 mg PO DAILY 12/21/16 Labetalol HCl [Normodyne -] 400 mg PO TID #60 tablet 12/26/16 Insulin Sliding Scale [Novolog Vial Sliding Scale -] 0 vial SQ ACHS 06/03/17 Apixaban [Eliquis -] 5 mg PO BID tablet 06/04/17 Insulin Detemir [Levemir Flextouch] 17 unit SQ BID 06/21/17 Docusate Sodium [Colace -] 100 mg PO Q12H PRN capsule 06/23/17 Ranitidine [Zantac -] 150 mg PO DAILY tablet 06/23/17 hydrALAZINE HCL [Apresoline -] 100 mg PO TID 30 Days #60 tablet 06/23/17 cloNIDine HCL [Catapres -] 0.3 mg PO TID 06/28/17 Oxycodone HCl [Oxycontin] 10 mg PO PRN PRN 07/12/17 Calcium Carbonate [Calcium] mg PO ASDIR 07/30/17 Nifedipine ER [Procardia XL -] 30 mg PO DAILY 07/30/17 <Brayan Buckley - Last Filed: 08/03/17 18:35> Condition: Improved - Instructions Diet, Activity, Other Instructions: You were treated for high glucose levels called hyperosmolar hyperglycemic nonketotic syndrome. Follow-up within one week for post-hospital evaluation: 1. Primary care physician, contact information for the clinic has been provided for you. 2. Dr. Verdugo, your patient care provider to continue your dialysis as per your usual schedule 3. Dr. Ronquillo, gas well drilling manager for help better control your sugars 4. Dr. Carr, [facility] to care for your foot ulcer Contact information has been provided, please call to make appointments Medications: continue your medications as prescribed, continue your insulin therapy Recommendations: Take your sugars three times a day and keep a diary to show your doctors Restrict your fluid intake as per your dialysis regimen. Eat a low sugar, low sodium, kidney-compliant diet. If you develop chest pain, trouble breathing, loss of pulses in your feet, fevers, worsening discharge from your foot ulcer or any other concerning new symptoms, please return to the hospital. Referrals: [facility] [place] [Provider Group] Fredrick Verdugo MD [Non Staff, Medical] - Tre Carr MD [Staff Physician] - Disposition: HOME This patient is new to me today: Yes Date on this admission: 08/03/17 Emergency Visit: Yes ED Registration Date: 07/30/17 Care time: The patient presented to the Emergency Department on the above date and was hospitalized for further evaluation of their emergent condition. Critical Care patient: No - Discharge Referral Referred to [facility] No <Brayan Buckley - Last Filed: 08/03/17 18:35>
== END 2017-08-02 18:15 | disposition home or self-care (01) | DRG 637 ==
LOC: JER 05:06 → JERBED 08:13 → JICU 12:09 → J7W 07-31 17:25
PROVIDERS: ADMIT Emergency Medicine; ATTEND Internal Medicine
PROC: 5A1D90Z Performance of Urinary Filtration, Continuous, Greater than 18 hours Per Day (ICD-10-PCS; principal; 2017-08-02)
DX: E10.10 Type 1 diabetes mellitus with ketoacidosis without coma (principal); N18.6 End stage renal disease; I12.0 Hypertensive chronic kidney disease with stage 5 chronic kidney disease or end stage renal disease; Z99.2 Dependence on renal dialysis; E87.5 Hyperkalemia; D63.1 Anemia in chronic kidney disease; E87.70 Fluid overload, unspecified; E11.621 Type 2 diabetes mellitus with foot ulcer; L97.509 Non-pressure chronic ulcer of other part of unspecified foot with unspecified severity; E11.42 Type 2 diabetes mellitus with diabetic polyneuropathy; R19.7 Diarrhea, unspecified
CPT/HCPCS: 36415; 71045-TC-FY; 73000-TC-RT-FY; 73630-TC-RT-FY; 73718-TC; 80048; 80053; 82009; 82803; 82962; 83036; 83605; 83690; 83735; 84100; 84484; 84703; 85025; 85610; 85651; 85730; 86140; 86704; 86706; 86708; 87040; 87070; 87077; 87205; 87340; 87389; 93005; 93010; 93970-TC; 94010; 94640; 99285-25; J0735; J0885; J1644; J7030

== ENCOUNTER 2017-08-16 20:46 | Observation (INO) | payer OTHER ==
[2017-08-16] MEDS ORDERED: ASPIRIN 81 MG CHEWABLE TABLETS PO ONE (21:01)
--- NOTE | 2017-08-16 21:01 | PDOC ---
Rapid Medical Evaluation Time Seen by Provider: 08/16/17 20:56 Medical Evaluation: Allergies Allergy/AdvReac Type Severity Reaction Status Date / Time No Known Drug Allergies Allergy Verified 07/30/17 05:30 lactose AdvReac Verified 07/31/17 23:05 08/16/17 20:57 I have performed a brief in-person evaluation of this patient. The patient presents with a chief complaint of: painful swollen legs today- missed HD today Pertinent physical exam findings: Lungs CTAB. 4+pedal edema. erythematous areas noted to ble I have ordered the following: labs, ekg, cxr The patient will proceed to the ED for further evaluation. Discharge Disposition - Diagnosis ESRD (end stage renal disease) on dialysis - Referrals - Patient Instructions - Post Discharge Activity
--- NOTE | 2017-08-16 22:19 | PDOC ---
History of Present Illness - General Chief Complaint: Pain, Acute Stated Complaint: PAIN Time Seen by Provider: 08/16/17 20:56 - History of Present Illness Initial Comments: 08/16/17 22:14 26 yo F with h/o HTN, DM, ESRD ( HD on MWF), PE (12/2016) who p/w SOB, and LE swelling. Patient reports increased Alfaro, and BLE swelling x 3 days. Home O2 3 liters, increased to 4 liters at night for past week. Increased Alfaro with ambulation. Reports missed dialysis this AM d/t SOB. Reports acute onset lightheadedness this AM, with no vertigo/LOC. Not able to produce urine. Denies F/C, vision changes, cough, CP, palpitations, N/V, CP, SOB, abdominal pain, diarrhea, constipation, urinary complaints, weakness, lightheadedness, sensory changes PMHx:as noted above. [employer] Dr. Tavo Evans. No PMD. SHx: Denies Etoh, tobacco, IVDA ROS: as noted above Allergies: NKDA Past History - Past Medical History Allergies/Adverse Reactions: Allergies Allergy/AdvReac Type Severity Reaction Status Date / Time No Known Drug Allergies Allergy Verified 08/16/17 20:59 lactose AdvReac Verified 08/16/17 20:59 Home Medications: Ambulatory Orders Sevelamer Carbonate [Renvela -] 1,600 mg PO TIDCM #60 tab 07/14/16 Losartan Potassium [Cozaar -] 100 mg PO DAILY 12/21/16 Labetalol HCl [Normodyne -] 400 mg PO TID #60 tablet 12/26/16 Insulin Sliding Scale [Novolog Vial Sliding Scale -] 0 vial SQ ACHS 06/03/17 Apixaban [Eliquis -] 5 mg PO BID tablet 06/04/17 Insulin Detemir [Levemir Flextouch] 17 unit SQ BID 06/21/17 Docusate Sodium [Colace -] 100 mg PO Q12H PRN capsule 06/23/17 Ranitidine [Zantac -] 150 mg PO DAILY tablet 06/23/17 hydrALAZINE HCL [Apresoline -] 100 mg PO TID 30 Days #60 tablet 06/23/17 cloNIDine HCL [Catapres -] 0.3 mg PO TID 06/28/17 Oxycodone HCl [Oxycontin] 10 mg PO PRN PRN 07/12/17 Calcium Carbonate [Calcium] mg PO ASDIR 07/30/17 Nifedipine ER [Procardia XL -] 30 mg PO DAILY 07/30/17 Anemia: Yes Asthma: No Cancer: No Cardiac Disorders: No CVA: No COPD: No CHF: No DVT: No Dementia: No Diabetes: Yes (15 yrs Insulin dependent) Dialysis: Yes (M/W/F) Disorders: Yes (esrd) HTN: Yes Hypercholesterolemia: No Kidney Stones: (ESRD, Dialysis Mon, W, F, Left arm Fistula) Liver Disease: No Seizures: Yes (Several yrs ago, no medication) Thyroid Disease: No - Surgical History Abdominal Surgery: No Appendectomy: No Cardiac Surgery: Yes (myxoma removed 2013) Cholecystectomy: Yes Lung Surgery: No Neurologic Surgery: No Orthopedic Surgery: Yes (foot sx x2) - Immunization History Immunization Up to Date: Yes - Suicide/Smoking/Psychosocial Hx Smoking Status: No Smoking History: Never smoked Have you smoked in the past 12 months: No Number of Cigarettes Smoked Daily: 10 Hx Alcohol Use: No Drug/Substance Use Hx: No Substance Use Type: None Hx Substance Use Treatment: No Review of Systems - Review of Systems Comments:: 08/16/17 22:13 GENERAL/CONSTITUTIONAL: No fever or chills. No weakness. HEAD, EYES, EARS, NOSE AND THROAT: No change in vision. No ear pain or discharge. No sore throat. CARDIOVASCULAR: No chest pain or shortness of breath RESPIRATORY: No cough, wheezing, or hemoptysis. GASTROINTESTINAL: No nausea, vomiting, diarrhea or constipation. GENITOURINARY: No dysuria, frequency, or change in urination. MUSCULOSKELETAL: No joint or muscle swelling or pain. No neck or back pain. SKIN: No rash NEUROLOGIC: No headache, vertigo, loss of consciousness, or change in strength/ sensation. ENDOCRINE: No increased thirst. No abnormal weight change HEMATOLOGIC/LYMPHATIC: No anemia, easy bleeding, or history of blood clots. ALLERGIC/IMMUNOLOGIC: No hives or skin allergy. *Physical Exam - Vital Signs Last Vital Signs Temp Pulse Resp BP Pulse Ox 98.7 F 74 20 100/62 100 08/16/17 20:59 08/16/17 20:59 08/16/17 20:59 08/16/17 20:59 08/16/17 20:59 - Physical Exam Comments: 08/16/17 22:14 GENERAL: Awake, alert, and fully oriented. Lethargic appearing. HEAD:+ Facial edema. No signs of trauma, normocephalic, atraumatic EYES: PERRLA, EOMI, sclera anicteric, conjunctiva clear ENT: Hearing grossly normal, nares patent, oropharynx clear without exudates. Moist mucosa NECK: Normal ROM, supple, no lymphadenopathy, JVD, or masses LUNGS: Diffuse exp. rhonci. No distress, speaks full sentences, clear to auscultation bilaterally HEART: Regular rate and rhythm, normal S1 and S2, no murmurs, rubs or gallops, peripheral pulses normal and equal bilaterally. EXTREMITIES : 2+ BL LE edema. Faint PT and DP pulses . Decreased active ROM. R foot post surgical/debrided plantar ulcer on RLE, dressed in gauze. SKIN: Warm, Dry,with multple excoriations throughout exts. and torso. ED Treatment Course - LABORATORY CBC & Chemistry Diagram: 08/16/17 11:10 08/16/17 11:10 Medical Decision Making - Medical Decision Making 08/16/17 22:17 26 yo F with h/o HTN, DM, ESRD ( HD on MWF), PE (12/2016) who p/w SOB, and LE swelling. Patient reports increased Alfaro, and BLE swelling x 3 days. Recent missed dialysis this AM with last dialysis Wednesday ( 08-13-17). VSS, A&Ox3. Marked BL LE 2 + pitting edema. Low risk PE/DVT based on weils criteria. Patient with missed dialysis. Will evaluate for underlying electrolyte abnml, acid-base disturbances, or toxic or metabolic derangements. ED Course: CBC,CMP, UA, EKG, Cardiac Pr, BNP, Mg, Ph, Acetone EKG, CXR 08/16/17 23:52 CBC: Unremarkable Glu 129 Acetone Neg 08/17/17 00:01 08/17/17 00:08 BUN/Cr: 71/7.2 08/17/17 00:[address] Johnson service. Tele/obs. 08/17/17 00:11 Trop: Neg *DC/Admit/Observation/Transfer Diagnosis at time of Disposition: ESRD (end stage renal disease) on dialysis, SOB (shortness of breath), Missed dialysis - Discharge Dispostion Decision to Admit order: Yes - Referrals - Patient Instructions - Post Discharge Activity
[2017-08-16] MEDS ORDERED: ASPIRIN 81 MG CHEWABLE TABLETS ONE (22:54)
[2017-08-16 22:56] LABS: BASO % 1.1 % (0-2.0); EOS % 1.9 % (0-4.5); HEMATOCRIT 27.7 % (32.4-45.2); HEMOGLOBIN 8.8 GM/dL (10.7-15.3); LYMPH % 8.8 % (8-40); MCH 26.8 pg (25.7-33.7); MEAN CELL VOLUME 83.8 fl (80-96); MONO % 9.7 % (3.8-10.2); NEUT % 78.5 % (42.8-82.8); PLATELET COUNT 245 K/MM3 (134-434); RDW 17.1 % (11.6-15.6); WHITE BLOOD COUNT 5.5 K/mm3 (4.0-10.0)
[2017-08-16 23:09] LABS: INR 1.2 (0.82-1.09); PROTHROMBIN TIME (PATIENT) 13.6 SEC (9.7-13.0)
[2017-08-16 23:25] LABS: CHLORIDE 97 mmol/L (98-107); POTASSIUM 4.4 mmol/L (3.5-5.1); SODIUM 131 mmol/L (136-145)
--- NOTE | 2017-08-16 23:34 | PDOC ---
Attending Attestation - HPI HPI: 08/16/17 23:39 The patient is a 26 year old female with past medical history of diabetes type I (started at age 10), renal failure (on dialysis, left arm fistula, last dialysis was 3 days ago), HTN, anemia, and vitamin D deficiency presents to the emergency department with SOB and painful swollen legs. The patient reports she missed her dialysis appointment today, has been experiencing migraines, and pain bilaterally with swelling and itchiness on the legs, 7/10 in severity. The patient reports she can barely get up and states she feels dizzy. Denies any numbness, tingling or loss of sensation. Denies any chest pain, SOB, or wheezing. Denies nausea, vomiting, diarrhea or constipation. Denies dysuria, hematuria, frequency or urgency to urinate. Allergies: NKDA, Lactose Surgical history: myxoma removed (2013), cholecystectomy, orthopedic surg (foot sx X2). Social history: None reported PCP: The patient states she currently has no PCP, but has an appointment next month. Kidney Doctor: Dr. Fredrick Verdugo - Physicial Exam PE: 08/16/17 23:39 GENERAL: (+) Itchy. Well-appearing, well-nourished. No apparent distress. HEENT: Normocephalic, atraumatic. PERRL, EOM intact. CARDIOVASCULAR: No murmurs Normal S1, S2. Regular rate and rhythm. PULMONARY: No rales, crackles, or rhonchi Clear to auscultation bilaterally. ABDOMEN: Soft, non-distended, non-tender. EXTREMITIES: (+) Bilateral 3+ pitting edema, right leg medial aspect of the knee ecchymosis. Normal ROM in all four extremities. No gross deformities. SKIN: Warm, dry. No rash NEUROLOGICAL: No focal neurological deficits. - Medical Decision Making 08/16/17 23:39 Documentation prepared by Barb Sawyer, acting as director medical for Patricia Dumas MD. <Barb Sawyer - Last Filed: 08/16/17 23:39> - Resident Resident Name: Barber Medrano - ED Attending Attestation I have performed the following: I have examined & evaluated the patient, The case was reviewed & discussed with the resident, I agree w/resident's findings & plan, Exceptions are as noted - Medical Decision Making 08/17/17 00:24 Patient is not in DKA, she is acetone negative. Her potassium is within normal limits of 4.4. She has significant greater than 3+ pitting edema and will be admitted for dialysis Dr Johnson agrees to MedSurg admit <Patricia Dumas - Last Filed: 08/17/17 00:25>
[2017-08-17 00:06] LABS: ALBUMIN 3.5 g/dl (3.4-5.0); ALK PHOS 1214 U/L (45-117); ANION GAP 15 (8-16); BILIRUBIN,TOTAL 0.7 mg/dL (0.2-1.0); BLOOD UREA NITROGEN 71 mg/dL (7-18); CALCIUM 7.9 mg/dL (8.5-10.1); CO2 19 mmol/L (21-32); CREATININE 7.2 mg/dL (0.55-1.02); GLUCOSE,RANDOM 108 mg/dL (74-106); MAGNESIUM 2.1 mg/dL (1.8-2.4); SGOT/AST 66 U/L (15-37); SGPT/ALT 47 U/L (12-78); TOT PROT 8.2 g/dl (6.4-8.2)
--- NOTE | 2017-08-17 00:10 | PN ---
Teaching Attending Note Name of Resident: Evan Tomas ATTENDING PHYSICIAN STATEMENT I saw and evaluated the patient. I reviewed the resident's note and discussed the case with the resident. I agree with the resident's findings and plan as documented. SUBJECTIVE: 26 F with pmhx. of HTN, DM, ESRD on HD (M, W, F), PE 12/20, on home 02 who presents with bilateral LE edema and shortness of breath X3 days. She missed HD. Also with lightheadedness. States she has not been on Eliquis for months due to epistaxis. Notes she does not move around at home, except for going to bathroom etc. Denies any chest pain or pressure. No N, V,D. No fevers or chills. States she has had erythema on her bilateral LE, increasing and going up her legs. OBJECTIVE: Physical: VS: Vital Signs Period Temp Pulse Resp BP Sys/Ames Pulse Ox Last 24 Hr 98.7 F 74 20 100/62 100 GEN: NAD, Resting in bed, AA0X3 HEENT: NCAT, PERRL, Throat without erythema or exudates CARD: RRR S1, S2 RESP: CTAB ABD: BSx4, NTD to palpation EXT: +3 Bilateral Pitting edema, with multiple excoriations and warmth. With erythema spreading up R. thigh/L. leg CBCD WBC 5.5 K/mm3 (4.0-10.0) 08/16/17 11:10 RBC 3.30 M/mm3 (3.60-5.2) L 08/16/17 11:10 Hgb 8.8 GM/dL (10.7-15.3) L 08/16/17 11:10 Hct 27.7 % (32.4-45.2) L 08/16/17 11:10 MCV 83.8 fl (80-96) 08/16/17 11:10 MCHC 32.0 g/dl (32.0-36.0) 08/16/17 11:10 RDW 17.1 % (11.6-15.6) H 08/16/17 11:10 Plt Count 245 K/MM3 (134-434) D 08/16/17 11:10 MPV 9.0 fl (7.5-11.1) 08/16/17 11:10 CMP Sodium 131 mmol/L (136-145) L 08/16/17 11:10 Potassium 4.4 mmol/L (3.5-5.1) 08/16/17 11:10 Chloride 97 mmol/L (98-107) L 08/16/17 11:10 Carbon Dioxide 19 mmol/L (21-32) L 08/16/17 11:10 Anion Gap 15 (8-16) 08/16/17 11:10 BUN 71 mg/dL (7-18) H 08/16/17 11:10 Creatinine 7.2 mg/dL (0.55-1.02) H 08/16/17 11:10 Creat Clearance w eGFR 6.82 (>60) 08/16/17 11:10 Random Glucose 108 mg/dL (74-106) H 08/16/17 11:10 Calcium 7.9 mg/dL (8.5-10.1) L 08/16/17 11:10 Total Bilirubin 0.7 mg/dL (0.2-1.0) 08/16/17 11:10 AST 66 U/L (15-37) H 08/16/17 11:10 ALT 47 U/L (12-78) 08/16/17 11:10 Alkaline Phosphatase 1214 U/L (45-117) H 08/16/17 11:10 Total Protein 8.2 g/dl (6.4-8.2) 08/16/17 11:10 Albumin 3.5 g/dl (3.4-5.0) 08/16/17 11:10 CARDIAC ENZYMES Creatine Kinase 78 IU/L (26-192) 08/16/17 11:10 Troponin I < 0.02 ng/ml (0.00-0.05) 08/16/17 11:10 CXR- Cardiomegaly, Congestion Ambulatory Orders Sevelamer Carbonate [Renvela -] 1,600 mg PO TIDCM #60 tab 07/14/16 Losartan Potassium [Cozaar -] 100 mg PO DAILY 12/21/16 Labetalol HCl [Normodyne -] 400 mg PO TID #60 tablet 12/26/16 Apixaban [Eliquis -] 5 mg PO BID tablet 06/04/17 Insulin Detemir [Levemir Flextouch] 17 unit SQ BID 06/21/17 Docusate Sodium [Colace -] 100 mg PO Q12H PRN capsule 06/23/17 Ranitidine [Zantac -] 150 mg PO DAILY tablet 06/23/17 hydrALAZINE HCL [Apresoline -] 100 mg PO TID 30 Days #60 tablet 06/23/17 cloNIDine HCL [Catapres -] 0.3 mg PO TID 06/28/17 Oxycodone HCl [Oxycontin] 10 mg PO PRN PRN 07/12/17 Calcium Carbonate [Calcium] 500 mg PO ASDIR 07/30/17 Nifedipine ER [Procardia XL -] 30 mg PO DAILY 07/30/17 ASSESSMENT AND PLAN: 26 F with pmhx. of HTN, DM, ESRD on HD (M, W, F), PE 12/20, on home 02 who presents with bilateral LE edema and shortness of breath X3 days 1.) Shortness of breath - DDx: Fluid overload from missed HD, PE, CHF - HD in AM - Wells 3- Hep.gtt - Duplex LE - Echo - Trend Trop/Ekg 2.) Bilateral LE Edema/Cellulitis - Clindamycin -Cx - ID consult - Duplex LE 2.) DM - FS - RAISS - Levemir 3.) ESRD on HD (M, W, F) - Nephro missed HD - Renal For HD 4.) Hyponatremia - U osm, S osm - Trend 5.) HTN - C/W Procardia, Labetolol, Hydralazine, Cozaar 6.) Dvt Ppx - Hep. gtt Place in Obs- Tele
--- NOTE | 2017-08-17 00:35 | HP ---
CHIEF COMPLAINT: B/L LE pain Renal: Dr. Verdugo Endocrine: Dr. Ronquillo HISTORY OF PRESENT ILLNESS: 26yo woman well known to service, 7th hospitalizations this year, with PMH of HTN, IDDM, ESRD (HD MWF, anuric), Pulmonary Embolism (12/2016), O2 dependent 3L who p/w B/L LE swelling and pain since this morning. She states the pain started acutely this morning, describes it currently as a burning sensation throughout thighs and calves. Also with worsening LE erythema on LE going up thighs. She states that she has dyspnea on exertion, but feels her breathing is at her baseline. Endorses that she intermittently increases her home oxygen levels. At baseline, she mostly sedentary, mobilizing mostly for IADLs. Denies any fever, chills, n/v, diarrhea or URI symptoms. Denies CP, chest tightness, chest discomfort. Patient missed HD session today. Complains of lightheadedness since this AM. Patient was previously on Eliquis, but reports not taking it due to epistaxis. Noted in chart that pt stopped taking medication in June 2017, but completed 6- 7mo of treatment for PE. Recent Travel: none PAST MEDICAL HISTORY: see HPI PAST SURGICAL HISTORY: Social History: Smoking: never Alcohol:none Drugs: none Family History: Allergies No Known Drug Allergies Allergy (Verified 08/16/17 20:59) lactose Adverse Reaction (Verified 08/16/17 20:59) HOME MEDICATIONS: Home Medications Medication Instructions Recorded Sevelamer Carbonate [Renvela -] 1,600 mg PO TIDCM #60 tab 07/14/16 Losartan Potassium [Cozaar -] 100 mg PO DAILY 12/21/16 Labetalol HCl [Normodyne -] 400 mg PO TID #60 tablet 12/26/16 Insulin Sliding Scale [Novolog 0 vial SQ ACHS 06/03/17 Vial Sliding Scale -] Apixaban [Eliquis -] 5 mg PO BID tablet 06/04/17 Insulin Detemir [Levemir Flextouch] 17 unit SQ BID 06/21/17 Docusate Sodium [Colace -] 100 mg PO Q12H PRN capsule 06/23/17 Ranitidine [Zantac -] 150 mg PO DAILY tablet 06/23/17 hydrALAZINE HCL [Apresoline -] 100 mg PO TID 30 Days #60 tablet 06/23/17 cloNIDine HCL [Catapres -] 0.3 mg PO TID 06/28/17 Oxycodone HCl [Oxycontin] 10 mg PO PRN PRN 07/12/17 Calcium Carbonate [Calcium] mg PO ASDIR 07/30/17 Nifedipine ER [Procardia XL -] 30 mg PO DAILY 07/30/17 REVIEW OF SYSTEMS CONSTITUTIONAL: Absent: fever, chills, diaphoresis, generalized weakness, malaise, loss of appetite, weight change HEENT: Absent: rhinorrhea, nasal congestion, throat pain, throat swelling, difficulty swallowing, mouth swelling, ear pain, eye pain, visual changes CARDIOVASCULAR: +lightheadedness, peripheral edema Absent: chest pain, syncope, palpitations, irregular heart rate, RESPIRATORY: +shortness of breath, dyspnea with exertion Absent: cough, orthopnea, wheezing, stridor, hemoptysis GASTROINTESTINAL: Absent: abdominal pain, abdominal distension, nausea, vomiting, diarrhea, constipation, melena, hematochezia GENITOURINARY: Absent: dysuria, frequency, urgency, hesitancy, hematuria, flank pain, genital pain MUSCULOSKELETAL: +leg pain Absent: myalgia, arthralgia, joint swelling, back pain, neck pain SKIN: Absent: rash, itching, pallor HEMATOLOGIC/IMMUNOLOGIC: Absent: easy bleeding, easy bruising, lymphadenopathy, frequent infections ENDOCRINE: Absent: unexplained weight gain, unexplained weight loss, heat intolerance, cold intolerance NEUROLOGIC: Absent: headache, focal weakness or paresthesias, dizziness, unsteady gait, seizure, mental status changes, bladder or bowel incontinence PSYCHIATRIC: Absent: anxiety, depression, suicidal or homicidal ideation, hallucinations. PHYSICAL EXAMINATION Vital Signs - 24 hr 08/16/17 20:59 Temperature 98.7 F Pulse Rate 74 Respiratory 20 Rate Blood Pressure 100/62 O2 Sat by Pulse 100 Oximetry (%) GENERAL: aaox3, nad, no conversational dyspnea HEENT: PERRL, EOMI, sclera anicteric, no pharyngeal erythema or exudates NECK: supple, no cervical LAD LUNGS: CTAB HEART: rrr, normal s1/s2 ABDOMEN: soft, NTND LOWER EXTREMITIES: 2+ edema b/l, 1+DP, R and L feet with gauze c/d/i, distal sensation intact, RLE with erythema on lateral knee/calf; LLE +calor on lateral thigh; diffuse ttp along LE b/l SKIN: Warm, dry, excoriations on B/L LE CBC, BMP 08/16/17 11:10 08/16/17 11:10 Hepatic Panel Total Bilirubin 0.7 mg/dL (0.2-1.0) 08/16/17 11:10 AST 66 U/L (15-37) H 08/16/17 11:10 ALT 47 U/L (12-78) 08/16/17 11:10 Alkaline Phosphatase 1214 U/L (45-117) H 08/16/17 11:10 Albumin 3.5 g/dl (3.4-5.0) 08/16/17 11:10 Troponin, BNP 08/16/17 11:10 Troponin I < 0.02 Laboratory Tests 08/16/17 08/16/17 08/16/17 11:00 11:10 11:10 PT with INR 13.60 H INR 1.20 H B-Natriuretic Peptide 94474.77 Acetone, Qual Negative L Laboratory Tests 08/16/17 08/16/17 11:00 11:10 Phosphorus 6.1 H Magnesium 2.1 EKG: NSR, rate 68, normal axis/intervals, QTc 478 CXR: cardiomegaly, congestion ASSESSMENT/PLAN: 26yo woman PMH of HTN, DM, ESRD ( HD on MWF, anicteric), PE (12/2016) not on Eliquis (self-d/c due to epistaxis), dependent home O2 therapy 3L who p/w B/L LE swelling and pain. #sob, likely due to fluid overload from missed HD session vs PE vs CHF -Renal consulted -HD per Renal -O2 therapy to maintain SpaO2 >90% -Wells Score 3, will start heparin gtt -Check Troponin in AM (1st Trop neg) #B/L LE with erythema, calor and diffuse ttp. Concern for possible cellulitis -B/L Venous Duplex Dopplers negative for DVT -ID consulted (Dr. Rodrigues) -h/o MRSA, start empiric Clindamycin 600mg IV Q8H -F/u Blood culture #HTN - c/w home medications #IDDM -Levemir 17U BID -BGM/ISS ACHS #FEN PO intake HypoNa/HyperPhos noted Renal, DM, low Na diet #PPX - start Heparin gtt #DISPO: obs tele FULL code Plan d/w Dr. Elizabeth Sullivan MD PGY1 - Internal Medicine, Night Pmp Certified Project Manager Visit type - Emergency Visit Emergency Visit: Yes ED Registration Date: 08/17/17 Care time: The patient presented to the Emergency Department on the above date and was hospitalized for further evaluation of their emergent condition. - New Patient This patient is new to me today: Yes Date on this admission: 08/17/17 - Critical Care Critical Care patient: No Hospitalist Screening - Colonoscopy Questionnaire Colonoscopy Questionnaire: Colonoscopy Questionnaire - Patient: 50 - 75 years old and never had a screening colonoscopy: No History of colon or rectal polyps, or CA: Unknown History of IBD, Crohn's disease or UC: Unknown History of abdominal radiation therapy as a child: Unknown - Relative: 1 with colon or rectal CA, or polyps at age 60 or younger: Unknown Colon or rectal CA diagnosed at age 45 or younger: Unknown Multiple relatives with colon or rectal CA: Unknown - Outcome: Screening Result: Negative Screen
[2017-08-17] MEDS ORDERED: HEPARIN NA (PORCINE) 5,000 UNITS/ML 1ML VIAL IVPUSH PRN ×2 (01:23)
[2017-08-17] MEDS ORDERED: HEPARIN SOD,PORK IN 0.45% NACL 25,000 UNITS/500 ML INFUS.BAG IVPB SCH (01:30)
[2017-08-17] MEDS ORDERED: morphine CARPU-JECT 2 MG/1 ML DISP.SYRIN IVPUSH ONE ×2 (01:33)
[2017-08-17] MEDS ORDERED: morphine SULFATE 4 MG/ML VIAL IVPUSH ONE (01:33)
[2017-08-17] MEDS ORDERED: morphine SULFATE 4 MG/ML VIAL ONE ×2 (01:35→03:50)
[2017-08-17] MEDS ORDERED: oxyCODONE HCL 10 MG SUSTAINED ACTING TABLET PO PRN (01:53)
[2017-08-17] MEDS ORDERED: DOCUSATE SODIUM 100 MG CAPSULE (FP) PO PRN (01:53)
[2017-08-17] MEDS ORDERED: HEPARIN NA (PORCINE) 5,000 UNITS/ML 1ML VIAL ONE (03:40)
[2017-08-17] MEDS ORDERED: HEPARIN INFUSION - 25,000 UNITS/500 ML INFUS.BAG IVPB ONE (03:40)
[2017-08-17] MEDS ORDERED: oxyCODONE HCL 5 MG TABLET PO PRN (05:08)
[2017-08-17] MEDS ORDERED: HEPARIN NA (PORCINE) 5,000 UNITS/ML 1ML VIAL SQ SCH (06:00)
[2017-08-17] MEDS: hydrALAZINE HCL 50 MG TABLET (FP) PO SCH ×2 (06:21→17:01)
[2017-08-17] MEDS: cloNIDine HCL 0.1 MG TABLET PO SCH ×2 (06:21→17:00)
[2017-08-17] MEDS: LABETALOL HCL 200 MG TABLET (FP) PO SCH ×2 (06:21→17:02)
[2017-08-17 06:42] VITALS: BMI 25.8
[2017-08-17] MEDS: INSULIN SLIDING SCALE (NOVOLOG) 1 VIAL SQ SCH ×3 (06:45→17:36)
[2017-08-17] MEDS ORDERED: INSULIN (LEVEMIR) 100 UNITS/ML UNITS SQ SCH (07:00)
[2017-08-17] MEDS ORDERED: SODIUM CHLORIDE 250 ML IV PRN (08:07)
[2017-08-17] MEDS: SEVELAMER CARBONATE 800 MG TAB (FP) PO SCH ×3 (08:59→17:04)
[2017-08-17] MEDS ORDERED: RANITIDINE HCL 150 MG TABLET (FP) PO SCH (10:00)
[2017-08-17] MEDS ORDERED: NIFEdipine E.R. 30 MG TABLET (FP) PO SCH (10:00)
[2017-08-17] MEDS ORDERED: LOSARTAN POTASSIUM 50 MG TABLET (FP) PO SCH (10:00)
[2017-08-17] MEDS: CLINDAMYCIN 600MG PREMIX IVPB 600 MG/50 ML BAG IVPB SCH ×2 (10:10→17:04)
--- NOTE | 2017-08-17 11:53 | EKG ---
Test Reason : Blood Pressure : / mmHG Vent. Rate : 068 BPM Atrial Rate : 068 BPM P-R Int : 184 ms QRS Dur : 082 ms QT Int : 450 ms P-R-T Axes : 040 031 051 degrees QTc Int : 478 ms POOR DATA QUALITY, INTERPRETATION MAY BE ADVERSELY AFFECTED NORMAL SINUS RHYTHM CANNOT RULE OUT ANTERIOR INFARCT (CITED ON OR BEFORE 04-MAR-2017) ABNORMAL ECG Confirmed by MD BRANDON, CHRISTIAN ([id number]) on 08/17/2017 11:53:26 AM Referred By: Confirmed By:CHRISTIAN TAYLOR MD
--- NOTE | 2017-08-17 12:56 | PN ---
Teaching Attending Note Name of Resident: Keaton Reddy ATTENDING PHYSICIAN STATEMENT I saw and evaluated the patient. I reviewed the resident's note and discussed the case with the resident. I agree with the resident's findings and plan as documented. SUBJECTIVE:c/o dyspnea at rest. missed HD yesterday because she felt too weak to get out bed. states she tolerated HD on wednesday and removed about 4 lbs. states she stopped taking her eliquis 5 months ago. can not recall if she did it on her own accord. also noted some redness and tenderness in her R thigh. denies Cp, SOB, fever, chills, N/V/C/D OBJECTIVE: Last Vital Signs Temp Pulse Resp BP Pulse Ox 97.7 F 77 16 145/90 100 08/17/17 06:00 08/17/17 08:00 08/17/17 08:00 08/17/17 08:00 08/17/17 06:00 General NAD CV S1 S2 +murmur Lungs decreased at the bases Abdomen soft NT/ND Extremities LUE AV fistula +palpable thrill, erythema to R medial thigh, no warmth or tenderness, erythema to L lateral calf no warmth or tenderness, 1+ pitting edema B/L ASSESSMENT AND PLAN: 26 yo F wtih known from previous admission for hx of non compliance with ESRD on HD, HTN presented for dyspnea 1. Dyspnea- due to volume overload with missed HD session. plan for HD today. may need to discuss with renal about pulling more fluid if tolerable 2. Skin erythema- low clinical concern for cellulitis, no fever or leukocytosis. stated on clindamycin for possible cellutlitis. ID has been consulted. will defer to ID if should be empirically treated 3. Hx of PE- now off eliquis. was on treatment for 6 months. doppler done showing no DVT. SOB more suggestive of volume overload. no tachycardia or hemoptysis. will re-evaluate breathing status after HD if does not resolve can consider further workup for PE. low suspicion. PERC 1. should discuss with her PMD to evaluate if full hypercoagubility workup has been done to see if she requires senior care anticoagulation 4. d/c home after HD if symptoms resolve
[2017-08-17 13:47] LABS: BASO % 0.7 % (0-2.0); EOS % 1.9 % (0-4.5); HEMATOCRIT 27.3 % (32.4-45.2); HEMOGLOBIN 8.7 GM/dL (10.7-15.3); LYMPH % 8.5 % (8-40); MCH 26.9 pg (25.7-33.7); MCHC 31.8 g/dl (32.0-36.0); MEAN CELL VOLUME 84.8 fl (80-96); MEAN PLT VOLUME 9.6 fl (7.5-11.1); MONO % 10.4 % (3.8-10.2); NEUT % 78.5 % (42.8-82.8); PLATELET COUNT 227 K/MM3 (134-434); RBC 3.22 M/mm3 (3.60-5.2); RDW 17.5 % (11.6-15.6)
[2017-08-17 14:11] LABS: ALBUMIN 3.2 g/dl (3.4-5.0); ANION GAP 12 (8-16); BLOOD UREA NITROGEN 68 mg/dL (7-18); CALCIUM 7.2 mg/dL (8.5-10.1); CHLORIDE 98 mmol/L (98-107); CO2 21 mmol/L (21-32); CREATININE 6.9 mg/dL (0.55-1.02); GLUCOSE,RANDOM 117 mg/dL (74-106); MAGNESIUM 2.1 mg/dL (1.8-2.4); PHOSPHOROUS 5.9 mg/dL (2.5-4.9); POTASSIUM 4.3 mmol/L (3.5-5.1); SODIUM 131 mmol/L (136-145)
[2017-08-17 14:36] LABS: ALK PHOS 1157 U/L (45-117); BILIRUBIN,TOTAL 0.6 mg/dL (0.2-1.0); SGOT/AST 100 U/L (15-37); SGPT/ALT 49 U/L (12-78); TOT PROT 7.7 g/dl (6.4-8.2)
--- NOTE | 2017-08-17 14:38 | CON.ID ---
Consult Consult Specialty:: infectious diseases Reason for Consultation:: cellulittis of the legs - History of Present Illness Chief Complaint: pain and swelling of the leg History of Present Illness: 26yo woman well known to me from previous admissions, with PMH of HTN, IDDM, ESRD , Pulmonary Embolism , O2 dependent 3L who p/w B/L LE swelling and pain since couple of days with increased this morning. and the pain started acutely this morning, Patient mentions that she has pain and burning all through the leg till the groin Also with worsening LE erythema on LE going up thighs. She states that she has dyspnea on exertion, but feels her breathing is at her baseline. Denies any fever, chills, n/v, diarrhea or URI symptoms. Denies CP, chest tightness, chest discomfort. 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, PE, DVT) Pulmonary: Yes: Pulmonary Embolus Renal/: Yes: Renal Failure, Hemodialysis ...LMP: 05/13/17 ...: No Infectious Disease: Yes: MRSA (history of bacteremia, recent mrsa foot abscess) Endocrine: Yes: Diabetes Mellitus (type 1 on insulin pump) Additional Medical History: DVT, PE on coumadin - Past Surgical History Past Surgical History: Yes: AV Fistula/Graft (Right arm) - Alcohol/Substance Use Hx Alcohol Use: No History of Substance Use: reports: None - Smoking History Smoking history: Never smoked Have you smoked in the past 12 months: No Aproximately how many cigarettes per day: 10 - Social History Usual Living Arrangement: With Parent ADL: Independent Occupation: unemployed History of Recent Travel: No Home Medications - Allergies Allergies/Adverse Reactions: Allergies Allergy/AdvReac Type Severity Reaction Status Date / Time No Known Drug Allergies Allergy Verified 08/16/17 20:59 lactose AdvReac Verified 08/16/17 20:59 - Home Medications Home Medications: Ambulatory Orders Sevelamer Carbonate [Renvela -] 1,600 mg PO TIDCM #60 tab 07/14/16 Losartan Potassium [Cozaar -] 100 mg PO DAILY 12/21/16 Labetalol HCl [Normodyne -] 400 mg PO TID #60 tablet 12/26/16 Apixaban [Eliquis -] 5 mg PO BID tablet 06/04/17 Insulin Detemir [Levemir Flextouch] 30 unit SQ BID 06/21/17 Docusate Sodium [Colace -] 100 mg PO Q12H PRN capsule 06/23/17 Ranitidine [Zantac -] 150 mg PO DAILY tablet 06/23/17 hydrALAZINE HCL [Apresoline -] 100 mg PO TID 30 Days #60 tablet 06/23/17 cloNIDine HCL [Catapres -] 0.3 mg PO TID 06/28/17 Oxycodone HCl [Oxycontin] 10 mg PO PRN PRN 07/12/17 Calcium Carbonate [Calcium] 500 mg PO ASDIR 07/30/17 Nifedipine ER [Procardia XL -] 30 mg PO DAILY 07/30/17 Family Disease History - Family Disease History Family Disease History: Diabetes: Grandparent (HTN), Heart Disease: Grandparent , Other: Father (unknown), Mother (HTN) Physical Exam Vital Signs: Vital Signs Temperature 97.8 F 08/17/17 12:45 Pulse Rate 88 08/17/17 14:20 Respiratory Rate 18 08/17/17 14:20 Blood Pressure 174/109 08/17/17 14:20 O2 Sat by Pulse Oximetry (%) 100 08/17/17 06:00 Constitutional: Yes: Calm, Mild Distress, Thin Eyes: Yes: Conjunctiva Clear Neck: Yes: Supple, Trachea Midline Cardiovascular: Yes: Regular Rate and Rhythm Respiratory: Yes: Regular, CTA Bilaterally Gastrointestinal: Yes: Normal Bowel Sounds, Soft Musculoskeletal: Yes: WNL Extremities: Yes: Erythema (on both ext rt worse than the left) Edema: LLE: 2+, RLE: 2+ Neurological: Yes: Alert, Oriented Psychiatric: Yes: Alert, Oriented Labs: CBC, BMP 08/17/17 13:00 08/17/17 13:00 Imaging - Results Chest X-ray: Report Reviewed, Image Reviewed Assessment/Plan 1.) Shortness of breath 2.) Bilateral LE Edema/Cellulitis 2.) DM 3.) ESRD on HD (M, W, F) 4.) Hyponatremia 5.) HTN patient does have redness of the legs but mostly due to edema of the legs plan i think we should give her couple of days of oral clinda dialysis patient sob monitor for that rest as per the team
--- NOTE | 2017-08-17 15:39 | CONSULT ---
Consult - text type - Consultation Consultation Note: Renal Consult for ESRD on HD This is a 26 year old woman with PMhx of ESRD on HD (MWF), Insulin dependent DM , Hypertension, Hx of PE on eliquis, Hx of Osteomylitis who presents with complaints of SOB after missed dialysis and admitted for fluid overload. Pt reports some reddness in b/l legs and pain. No SOB, chest pain. Missed her dialysis yesterday. Does not make urine. Currently on dialysis. PMhx: as above Allergies: NKDA Family hx: NC Social Hx: No T/A/D ROS: as per HPI Home meds: Home Medications Medication Instructions Recorded Sevelamer Carbonate [Renvela -] 1,600 mg PO TIDCM #60 tab 07/14/16 Losartan Potassium [Cozaar -] 100 mg PO DAILY 12/21/16 Labetalol HCl [Normodyne -] 400 mg PO TID #60 tablet 12/26/16 Apixaban [Eliquis -] 5 mg PO BID tablet 06/04/17 Insulin Detemir [Levemir Flextouch] 30 unit SQ BID 06/21/17 Docusate Sodium [Colace -] 100 mg PO Q12H PRN capsule 06/23/17 Ranitidine [Zantac -] 150 mg PO DAILY tablet 06/23/17 hydrALAZINE HCL [Apresoline -] 100 mg PO TID 30 Days #60 tablet 06/23/17 cloNIDine HCL [Catapres -] 0.3 mg PO TID 06/28/17 Oxycodone HCl [Oxycontin] 10 mg PO PRN PRN 07/12/17 Calcium Carbonate [Calcium] 500 mg PO ASDIR 07/30/17 Nifedipine ER [Procardia XL -] 30 mg PO DAILY 07/30/17 Vital Signs Temperature 97.8 F 08/17/17 12:45 Pulse Rate 88 08/17/17 14:20 Respiratory Rate 18 08/17/17 14:20 Blood Pressure 174/109 08/17/17 14:20 O2 Sat by Pulse Oximetry (%) 100 08/17/17 09:30 Intake & Output 08/14/17 08/15/17 08/16/17 08/17/17 23:59 23:59 23:59 23:59 Intake Total 420 Balance 420 Weight 68 kg 72.62 kg NAD awake and alert RRR Dec BS at lung bases soft NT + edema in LE CBC, BMP 08/17/17 13:00 08/17/17 13:00 Current Medications Clonidine (Catapres -) 0.3 mg PO TID [facility] Last Admin: 08/17/17 06:21 Dose: Not Given Docusate Sodium (Colace -) 100 mg PO Q12H PRN PRN Reason: CONSTIPATION Hydralazine HCl (Apresoline -) 100 mg PO TID [facility] Last Admin: 08/17/17 06:21 Dose: Not Given Clindamycin Phosphate (Cleocin 600 Mg Premix Ivpb -) 600 mg in 50 mls @ 100 mls /hr IVPB Q8H-IV [facility] PRN Reason: Protocol Last Admin: 08/17/17 10:10 Dose: 100 mls/hr Sodium Chloride (Normal Saline -) 250 mls @ 3,000 mls/hr IV PRN PRN PRN Reason: Hypotension during Dialysis Stop: 08/18/17 08:07 Insulin Aspart (Novolog Vial Sliding Scale -) 1 vial SQ ACHS [facility] PRN Reason: Protocol Last Admin: 08/17/17 11:55 Dose: Not Given Insulin Detemir (Levemir Vial) 17 units SQ BID@0700,2200 [facility] Last Admin: 08/17/17 06:20 Dose: 17 units Labetalol HCl (Normodyne -) 400 mg PO TID [facility] Last Admin: 08/17/17 06:21 Dose: Not Given Losartan Potassium (Cozaar -) 100 mg PO DAILY [facility] Last Admin: 08/17/17 10:13 Dose: 100 mg Nifedipine (Procardia Xl -) 30 mg PO DAILY [facility] Last Admin: 08/17/17 10:13 Dose: 30 mg Oxycodone HCl (Roxicodone -) 10 mg PO Q6H PRN PRN Reason: PAIN LEVEL 6-10 Last Admin: 08/17/17 08:59 Dose: 10 mg Ranitidine HCl (Zantac -) 150 mg PO DAILY [facility] Last Admin: 08/17/17 10:13 Dose: 150 mg Sevelamer Carbonate (Renvela -) 1,600 mg PO TIDCM [facility] Last Admin: 08/17/17 11:56 Dose: 1,600 mg 26 year old woman with PMhx of ESRD on HD (MWF), Insulin dependent DM, Hypertension, Hx of PE, Hx of Osteomylitis who presents with complaints of SOB after missed dialysis and admitted for fluid overload. #ESRD on Hd #Fluid overload due to non-compliance with fluid restriction/diet and dialysis #Hypertension #DM on insulin #Chronic Anemia #Renal osteodystrophy/Hypocalcemia #Hhyponatremia pt is currently getting dialysis with aggressive UF continue home antihypertensives continue Abx as per ID continue Renvela TID with meals will continue MACIE with HD if discharged pt can resume outpatient dialysis tomorrow Thank you Nathan Vo DO
--- NOTE | 2017-08-17 16:00 | DS ---
Physical Exam: SUBJECTIVE: Patient seen and examined OBJECTIVE: Vital Signs Period Temp Pulse Resp BP Sys/Ames Pulse Ox Last 24 Hr 97.7 F-98.7 F 70-90 16-20 100-174/52-109 100-100 PHYSICAL EXAM GENERAL: The patient is awake, alert, and fully oriented, in no acute distress. HEAD: Normal with no signs of trauma. EYES: PERRL, extraocular movements intact, sclera anicteric, conjunctiva clear. ENT: Ears normal, nares patent, oropharynx clear without exudates, moist mucous membranes. NECK: Trachea midline, full range of motion, supple. LUNGS: Breath sounds equal, clear to auscultation bilaterally, no wheezes, no crackles, no accessory muscle use. HEART: Regular rate and rhythm, S1, S2 without murmur, rub or gallop. ABDOMEN: Soft, nontender, nondistended, normoactive bowel sounds, no guarding, no rebound, no hepatosplenomegaly, no masses. EXTREMITIES: 2+ pulses, warm, well-perfused, no edema. NEUROLOGICAL: Cranial nerves II through XII grossly intact. Normal speech, gait not observed. PSYCH: Normal mood, normal affect. SKIN: Warm, dry, normal turgor, no rashes or lesions noted. LABS Laboratory Results - last 24 hr 08/16/17 08/16/17 08/16/17 11:00 11:00 11:10 WBC 5.5 RBC 3.30 L Hgb 8.8 L Hct 27.7 L MCV 83.8 MCH 26.8 MCHC 32.0 RDW 17.1 H Plt Count 245 D MPV 9.0 Neutrophils % 78.5 Lymphocytes % 8.8 D Monocytes % 9.7 Eosinophils % 1.9 Basophils % 1.1 PT with INR INR Sodium Potassium Chloride Carbon Dioxide Anion Gap BUN Creatinine Creat Clearance w eGFR POC Glucometer Random Glucose Calcium Phosphorus 6.1 H Magnesium Total Bilirubin AST ALT Alkaline Phosphatase Creatine Kinase Troponin I B-Natriuretic Peptide 13722.77 H Total Protein Albumin Acetone, Qual 08/16/17 08/16/17 08/16/17 11:10 11:10 11:10 WBC RBC Hgb Hct MCV MCH MCHC RDW Plt Count MPV Neutrophils % Lymphocytes % Monocytes % Eosinophils % Basophils % PT with INR 13.60 H INR 1.20 H Sodium 131 L Potassium 4.4 Chloride 97 L Carbon Dioxide 19 L Anion Gap 15 BUN 71 H Creatinine 7.2 H Creat Clearance w eGFR 6.82 POC Glucometer Random Glucose 108 H Calcium 7.9 L Phosphorus Magnesium 2.1 Total Bilirubin 0.7 AST 66 H ALT 47 Alkaline Phosphatase 1214 H Creatine Kinase 78 Troponin I < 0.02 B-Natriuretic Peptide Total Protein 8.2 Albumin 3.5 Acetone, Qual Negative L 08/16/17 08/17/17 08/17/17 22:31 06:28 11:55 WBC RBC Hgb Hct MCV MCH MCHC RDW Plt Count MPV Neutrophils % Lymphocytes % Monocytes % Eosinophils % Basophils % PT with INR INR Sodium Potassium Chloride Carbon Dioxide Anion Gap BUN Creatinine Creat Clearance w eGFR POC Glucometer 129.30815 341.87200 145.28628 Random Glucose Calcium Phosphorus Magnesium Total Bilirubin AST ALT Alkaline Phosphatase Creatine Kinase Troponin I B-Natriuretic Peptide Total Protein Albumin Acetone, Qual 08/17/17 08/17/17 08/17/17 13:00 13:00 13:00 WBC 5.0 RBC 3.22 L Hgb 8.7 L Hct 27.3 L MCV 84.8 MCH 26.9 MCHC 31.8 L RDW 17.5 H Plt Count 227 MPV 9.6 Neutrophils % 78.5 Lymphocytes % 8.5 Monocytes % 10.4 H Eosinophils % 1.9 Basophils % 0.7 PT with INR INR Sodium 131 L Potassium 4.3 Chloride 98 Carbon Dioxide 21 Anion Gap 12 BUN 68 H Creatinine 6.9 H Creat Clearance w eGFR 7.16 POC Glucometer Random Glucose 117 H Calcium 7.2 L Phosphorus 5.9 H Magnesium 2.1 Total Bilirubin 0.6 AST 100 H ALT 49 Alkaline Phosphatase 1157 H Creatine Kinase 70 Cancelled Troponin I < 0.02 Cancelled B-Natriuretic Peptide Total Protein 7.7 Albumin 3.2 L Acetone, Qual HOSPITAL COURSE: Date of Admission:08/17/17 Date of Discharge: 08/17/17 26yo woman PMH of HTN, DM, ESRD (HD on MWF, anicteric), PE (12/2016) not on Eliquis (self-d/c due to epistaxis), dependent home O2 therapy 3L who p/w B/L LE swelling and pain. Pt was admitted for evaluation and treatment of ESRD and possible cellulitis. She was seen by nephrology and underwent dialysis, which she tolerated well. She was seen by infectious diseases, who recommended outpt clindamycin therapy. She had a chest xray remarkable for left arm stent, enlarged heart, and elevated R hemidiaphragm. She had an U/S study of the legs remarkable for b/l Wilcox's cyst but no DVT. EKG revealed (old) anterior Q waves. A hepatitis panel was ordered. This will be followed up as an out pt. Minutes to complete discharge: 30 Discharge Summary Reason For Visit: MISSED DIALYSIS, SWELLING OF LOWER EXTREMITY Current Active Problems Missed dialysis (Acute) SOB (shortness of breath) (Acute) ESRD (end stage renal disease) on dialysis (Chronic) Condition: Good - Instructions Diet, Activity, Other Instructions: Make sure you follow up with your community health worker within 1 week or at your next dialysis session. Follow up with your primary care doctor within 1 week. PLease follow up tomorrow for your regular scheduled HD session. You are being sent home with the following medications: calcium carbonate 500 mg (FOLLOW THE DIRECTION OF YOUR STACK MATCHER) clonidine 0.3 mg three times daily hydralazine 100 mg 3 times daily colace 100 mg twice daily as needed for constipation Levemir flextouch 30 units subQ twice daily Labetalol 400 mg 3 times daily Cozaar 100 mg daily Procardia XL 30 mg daily Oxycontin 10 mg daily as needed for pain zantac 150 mg daily Renvela 1,600 mg 3 times daily (FOLLOW THE DIRECTION OF YOUR STACK MATCHER) Take the following medication for 1 week: Clindamycin 300 mg 4 times per day for 7 days (08/18/2017 - 08/24/2017) please return to the hospital if your symptoms worsen Referrals: Nathan Vo MD [Staff Physician] - 1 Week Rachana Rodrigues MD [Staff Physician] - Disposition: HOME - Home Medications Comprehensive Discharge Medication List: Ambulatory Orders Sevelamer Carbonate [Renvela -] 1,600 mg PO TIDCM #60 tab 07/14/16 Losartan Potassium [Cozaar -] 100 mg PO DAILY 12/21/16 Labetalol HCl [Normodyne -] 400 mg PO TID #60 tablet 12/26/16 Apixaban [Eliquis -] 5 mg PO BID tablet 06/04/17 Insulin Detemir [Levemir Flextouch] 30 unit SQ BID 06/21/17 Docusate Sodium [Colace -] 100 mg PO Q12H PRN capsule 06/23/17 Ranitidine [Zantac -] 150 mg PO DAILY tablet 06/23/17 hydrALAZINE HCL [Apresoline -] 100 mg PO TID 30 Days #60 tablet 06/23/17 cloNIDine HCL [Catapres -] 0.3 mg PO TID 06/28/17 Oxycodone HCl [Oxycontin] 10 mg PO PRN PRN 07/12/17 Calcium Carbonate [Calcium] 500 mg PO ASDIR 07/30/17 Nifedipine ER [Procardia XL -] 30 mg PO DAILY 07/30/17 Clindamycin [Cleocin -] 300 mg PO DAILY #28 capsule 08/17/17 This patient is new to me today: Yes Date on this admission: 08/18/17 Emergency Visit: No Critical Care patient: No - Discharge Referral Referred to [facility] No
[2017-08-17] MEDS ORDERED: PT OWN MED DRAWER 7, Y5N ONE (17:03)
[2017-08-17 17:54] VITALS: TEMP 98.6
[2017-08-17 18:17] VITALS: BP 195/98; PULSE 95
[2017-08-18 08:07] LABS: HBSAG SCREEN Negative (Negative); HEP B CORE AB, TOT Negative (Negative)
[2017-08-19 08:07] LABS: SERUM IRON SATURATION 8 % (15-55); TOTAL IRON BINDING CAPACITY 183 ug/dL (250-450); UIBC 168 ug/dL (131-425)
== END 2017-08-17 19:27 | disposition home or self-care (01) ==
LOC: JER 20:46 → JERBED 08-17 00:14 → J2W 08-17 05:56
PROVIDERS: ADMIT Internal Medicine; ATTEND Internal Medicine
PROC: 3E033NZ Introduction of Analgesics, Hypnotics, Sedatives into Peripheral Vein, Percutaneous Approach (ICD-10-PCS; principal; 2017-08-17)
PROC: 3E033GC Introduction of Other Therapeutic Substance into Peripheral Vein, Percutaneous Approach (ICD-10-PCS; 2017-08-17)
DX: Z91.15 Patient's noncompliance with renal dialysis (principal); E10.22 Type 1 diabetes mellitus with diabetic chronic kidney disease; I12.0 Hypertensive chronic kidney disease with stage 5 chronic kidney disease or end stage renal disease; N18.6 End stage renal disease; Z99.2 Dependence on renal dialysis; Z79.4 Long term (current) use of insulin; E87.79 Other fluid overload; D64.9 Anemia, unspecified; R06.02 Shortness of breath; L03.116 Cellulitis of left lower limb; L03.115 Cellulitis of right lower limb; E87.1 Hypo-osmolality and hyponatremia; Z86.711 Personal history of pulmonary embolism; Z86.14 Personal history of Methicillin resistant Staphylococcus aureus infection; Z99.81 Dependence on supplemental oxygen; Z86.69 Personal history of other diseases of the nervous system and sense organs
CPT/HCPCS: 36415; 71045-TC-FY; 80053; 82009; 82550; 82728; 82962; 83540; 83550; 83735; 83880; 84100; 84484; 85025; 85610; 86704; 86706; 86708; 87340; 93005; 93010; 93970-TC; 96372; 96374; 96375; 96376; 99281-25; G0378; J0735; J1644

== ENCOUNTER 2017-08-30 16:54 | Emergency (ER) | payer OTHER ==
[2017-08-30 17:00] VITALS: TEMP 98.1; BMI 20.9
--- NOTE | 2017-08-30 17:29 | PDOC ---
History of Present Illness - General History Source: Patient Exam Limitations: No Limitations - History of Present Illness Initial Comments: 08/30/17 17:57 The patient is a 26 year old female with past medical history of ESRD (on dialysis MWF) and IDDM who presents to the ED with complaints of epigastric pain that began today. She denies any associated nausea, vomiting, diarrhea, or constipation. She monique any melena or hematochezia. She reports that she was supposed to have dialysis today but missed it because she prefers to come to the hospital. She denies any associated fevers, chills, SOB, CP, cough, or urinary complaints. Allergies: NKDA Surgery Hx: myxoma, cholecystectomy, foot surgery Renal: Dr. Fredrick Verdugo <Dulce Ayala - Last Filed: 08/30/17 17:56> <Patricia Dumas - Last Filed: 08/30/17 20:04> - General Chief Complaint: Pain Stated Complaint: STOMACH PAIN Time Seen by Provider: 08/30/17 17:12 Past History <Dulce Ayala - Last Filed: 08/30/17 17:56> - Past Medical History Anemia: Yes Asthma: No Cancer: No Cardiac Disorders: No CVA: No COPD: No CHF: No DVT: No Dementia: No Diabetes: Yes (15 yrs Insulin dependent) Dialysis: Yes (M/W/F) Disorders: Yes (esrd) HTN: Yes Hypercholesterolemia: No Kidney Stones: (ESRD, Dialysis Mon, W, F, Left arm Fistula) Liver Disease: No Seizures: Yes (Several yrs ago, no medication) Thyroid Disease: No - Surgical History Abdominal Surgery: No Appendectomy: No Cardiac Surgery: Yes (myxoma removed 2013) Cholecystectomy: Yes Lung Surgery: No Neurologic Surgery: No Orthopedic Surgery: Yes (foot sx x2) - Immunization History Immunization Up to Date: Yes - Suicide/Smoking/Psychosocial Hx Smoking Status: No Smoking History: Never smoked Have you smoked in the past 12 months: No Number of Cigarettes Smoked Daily: 10 Information on smoking cessation initiated: No Hx Alcohol Use: No Drug/Substance Use Hx: No Substance Use Type: None Hx Substance Use Treatment: No <Patricia Dumas - Last Filed: 08/30/17 20:04> - Past Medical History Allergies/Adverse Reactions: Allergies Allergy/AdvReac Type Severity Reaction Status Date / Time No Known Drug Allergies Allergy Verified 08/30/17 16:55 lactose AdvReac Verified 08/30/17 16:55 Home Medications: Ambulatory Orders Sevelamer Carbonate [Renvela -] 1,600 mg PO TIDCM #60 tab 07/14/16 Losartan Potassium [Cozaar -] 100 mg PO DAILY 12/21/16 Labetalol HCl [Normodyne -] 400 mg PO TID #60 tablet 12/26/16 Insulin Detemir [Levemir Flextouch] 30 unit SQ BID 06/21/17 Docusate Sodium [Colace -] 100 mg PO Q12H PRN capsule 06/23/17 Ranitidine [Zantac -] 150 mg PO DAILY tablet 06/23/17 hydrALAZINE HCL [Apresoline -] 100 mg PO TID 30 Days #60 tablet 06/23/17 cloNIDine HCL [Catapres -] 0.3 mg PO TID 06/28/17 Oxycodone HCl [Oxycontin] 10 mg PO PRN PRN 07/12/17 Calcium Carbonate [Calcium] 500 mg PO ASDIR 07/30/17 Nifedipine ER [Procardia XL -] 30 mg PO DAILY 07/30/17 Clindamycin [Cleocin -] 300 mg PO DAILY #28 capsule 08/17/17 Pantoprazole Sodium [Protonix -] 20 mg PO DAILY #7 tablet.ec 08/30/17 Abd/GI Specific PMHX - Complaint Specific PMHX GERD: No <Patricia Dumas - Last Filed: 08/30/17 20:04> Review of Systems - Review of Systems Able to Perform ROS?: Yes Comments:: 08/30/17 17:57 CONSTITUTIONAL: Absent: fever, no chills, no fatigue EYES: Absent: visual changes ENT: Absent: ear pain, no sore throat CARDIOVASCULAR: Absent: chest pain, no palpitations RESPIRATORY: Absent: cough, no SOB GI:(+) epigastric pain Absent: no nausea, no vomiting, no constipation, no diarrhea GENITOURINARY: Absent: dysuria, no frequency, no hematuria MUSKULOSKELETAL: Absent: back pain, no arthralgia, no myalgia SKIN: Absent: rash NEURO: Absent: headache All Other Systems: Reviewed and Negative <Dulce Ayala - Last Filed: 08/30/17 17:56> *Physical Exam - Vital Signs Last Vital Signs Temp Pulse Resp BP Pulse Ox 98.1 F 87 20 151/83 98 08/30/17 16:56 08/30/17 16:56 08/30/17 16:56 08/30/17 16:56 08/30/17 16:56 - Physical Exam Comments: 08/30/17 17:58 ADULT BASIC PE GENERAL: Well-appearing, well-nourished. No apparent distress. HEENT: Normocephalic, atraumatic. PERRL, EOM intact. CARDIOVASCULAR: Normal S1, S2. Regular rate and rhythm. PULMONARY: Clear to auscultation bilaterally. ABDOMEN: Mild epigastric tenderness with no rebound or guarding. Soft, non-distended, non -tender. EXTREMITIES: (+) chronic 3+ bilateral lower extremity edema Normal ROM in all four extremities. No gross deformities. SKIN: Warm, dry. No rash NEUROLOGICAL: No focal neurological deficits. <Dulce Ayala - Last Filed: 08/30/17 17:56> - Vital Signs Last Vital Signs Temp Pulse Resp BP Pulse Ox 98.1 F 87 20 151/83 98 08/30/17 16:56 08/30/17 16:56 08/30/17 16:56 08/30/17 16:56 08/30/17 16:56 <Patricia Dumas - Last Filed: 08/30/17 20:04> ED Treatment Course - LABORATORY CBC & Chemistry Diagram: 08/30/17 18:45 08/30/17 18:45 <Patricia Dumas - Last Filed: 08/30/17 20:04> Medical Decision Making - Medical Decision Making 08/30/17 19:13 26-year-old female presents because she states she is having epigastric pain. She has benign abdominal exam Patient is well known to the emergency department. SHe has a history of IDDM and end-stage renal disease. She has difficulty getting her dialysis this afternoon, but said that her epigastric pain was too severe. She came to the hospital rather than go to dialysis because of the epigastric burning. She says she's had this epigastric pain for a while No fever, no chills, no nausea, no vomiting, no diarrhea, no shortness No chest pain. Because she says she has significant epigastric pain and she has been diabetic for many years. EKG was obtained that was unchanged from her prior. The EKG is normal sinus rhythm 82 bpm CBC shows chronic anemia. Her vital signs are stable. Her BGM was in the 184 potassium=3.8 08/30/17 20:02 <Patricia Dumas - Last Filed: 08/30/17 20:04> *DC/Admit/Observation/Transfer - Attestations Scribe Attestion: 08/30/17 18:01 Documentation prepared by Dulce Ayala, acting as medical insurance claims processor for Patricia Dumas MD. <Dulce Ayala - Last Filed: 08/30/17 17:56> <Patricia Dumas - Last Filed: 08/30/17 20:04> Diagnosis at time of Disposition: Hyperglycemia, Pain Acid reflux Qualifiers: Esophagitis presence: without esophagitis Qualified Code(s): K21.9 - Gastro- esophageal reflux disease without esophagitis - Discharge Dispostion Disposition: HOME Condition at time of disposition: Stable - Prescriptions Prescriptions: Pantoprazole Sodium [Protonix -] 20 mg PO DAILY #7 tablet.ec - Patient Instructions Printed Discharge Instructions: DI for Gastroesophageal Reflux Disease (GERD) Additional Instructions: PLEASE SWIMMING COACH OR INSTRUCTOR YOUR PRESCRIPTION AT YOUR PHARMACY PLEASE GO TO YOUR DIALYSIS APPOINTMENT
[2017-08-30] MEDS ORDERED: ONDANSETRON *ODT* 4 MG TABLET SL ONE (17:39)
[2017-08-30] MEDS ORDERED: MAG HYDROX/AL HYDROX/SIMETH 30 ML UNIT-DOSE CUP PO ONE (17:41)
[2017-08-30] MEDS ORDERED: PANTOPRAZOLE 40 MG TABLET (FP) PO ONE (17:42)
[2017-08-30] MEDS ORDERED: PANTOPRAZOLE 40 MG TABLET (FP) ONE (18:07)
[2017-08-30] MEDS ORDERED: ONDANSETRON 8 MG TABLET (FP) PO ONE (18:07)
[2017-08-30] MEDS ORDERED: MAG HYDROX/AL HYDROX/SIMETH 30 ML UNIT-DOSE CUP ONE (18:08)
[2017-08-30 19:00] LABS: BASO % 0.6 % (0-2.0); EOS % 0.8 % (0-4.5); HEMATOCRIT 31.5 % (32.4-45.2); HEMOGLOBIN 9.9 GM/dL (10.7-15.3); LYMPH % 6.1 % (8-40); MCH 26.5 pg (25.7-33.7); MCHC 31.3 g/dl (32.0-36.0); MEAN CELL VOLUME 84.8 fl (80-96); MEAN PLT VOLUME 8.9 fl (7.5-11.1); MONO % 10.7 % (3.8-10.2); NEUT % 81.8 % (42.8-82.8); PLATELET COUNT 286 K/MM3 (134-434); RBC 3.71 M/mm3 (3.60-5.2); RDW 18.4 % (11.6-15.6); WHITE BLOOD COUNT 9.2 K/mm3 (4.0-10.0)
[2017-08-30 19:20] LABS: ALBUMIN 3.4 g/dl (3.4-5.0); ANION GAP 12 (8-16); BLOOD UREA NITROGEN 34 mg/dL (7-18); CALCIUM 9.1 mg/dL (8.5-10.1); CHLORIDE 94 mmol/L (98-107); CO2 24 mmol/L (21-32); CREATININE 6.3 mg/dL (0.55-1.02); GLUCOSE,RANDOM 184 mg/dL (74-106); LIPASE 94 U/L (73-393); POTASSIUM 3.8 mmol/L (3.5-5.1); SGOT/AST 19 U/L (15-37); SGPT/ALT 20 U/L (12-78); SODIUM 130 mmol/L (136-145)
[2017-08-30 19:33] LABS: BILIRUBIN,TOTAL 0.6 mg/dL (0.2-1.0); TOT PROT 8.2 g/dl (6.4-8.2)
[2017-08-30 19:34] LABS: ALK PHOS 1002 U/L (45-117)
[2017-08-30] MEDS ORDERED: cloNIDine HCL 0.1 MG TABLET PO ONE (20:49)
[2017-08-30] MEDS ORDERED: LABETALOL HCL 100 MG TABLET (FP) PO STA (20:49)
[2017-08-30 20:55] VITALS: BP 170/91; PULSE 76
[2017-08-30] MEDS ORDERED: cloNIDine HCL 0.1 MG TABLET ONE (20:59)
--- NOTE | 2017-08-31 13:38 | EKG ---
Test Reason : Blood Pressure : / mmHG Vent. Rate : 081 BPM Atrial Rate : 081 BPM P-R Int : 186 ms QRS Dur : 088 ms QT Int : 392 ms P-R-T Axes : 029 008 061 degrees QTc Int : 455 ms NORMAL SINUS RHYTHM CANNOT RULE OUT ANTERIOR INFARCT (CITED ON OR BEFORE 04-MAR-2017) ABNORMAL ECG WHEN COMPARED WITH ECG OF 17-AUG-2017 00:27, NO SIGNIFICANT CHANGE WAS FOUND Confirmed by MD Shasha, Junaid ([id number]) on 08/31/2017 1:37:58 PM Referred By: Confirmed By:Junaid Pulliam MD
== END 2017-08-30 21:26 | disposition home or self-care (01) ==
LOC: JER 16:54
DX: K21.9 Gastro-esophageal reflux disease without esophagitis (principal); I12.0 Hypertensive chronic kidney disease with stage 5 chronic kidney disease or end stage renal disease; E10.22 Type 1 diabetes mellitus with diabetic chronic kidney disease; N18.6 End stage renal disease; N17.8 Other acute kidney failure; Z99.2 Dependence on renal dialysis; Z79.4 Long term (current) use of insulin; Z86.69 Personal history of other diseases of the nervous system and sense organs
CPT/HCPCS: 36415; 80053; 82962; 83690; 85025; 93005; 93010; 99282-25; J0735

== ENCOUNTER 2017-08-31 21:54 | Observation (INO) | payer OTHER ==
[2017-08-31 22:15] VITALS: BMI 23.3
--- NOTE | 2017-09-01 01:41 | PDOC ---
History of Present Illness - General History Source: Patient Exam Limitations: No Limitations <Becky Alba - Last Filed: 09/01/17 04:33> - History of Present Illness Initial Comments: The patient is a 27 year old female with past medical history of ESRD (on dialysis MWF) and IDDM who returns to the ED with complaints of midsternal chest pain. She states that she is not able to eat or drink. She states that her symptoms initially began a couple weeks ago but has since worsened. She states that a doctor that she saw diagnosed her with GERD yesterday. She reports that she was last dialyzed on Wednesday. She denies any associated fevers, chills, SOB, cough, or urinary complaints. Allergies: NKDA Surgery Hx: myxoma, cholecystectomy, foot surgery Renal: Dr. Fredrick Verdugo <Mirella Gaitan - Last Filed: 09/01/17 06:15> - General Chief Complaint: Pain Stated Complaint: CHEST PAIN, NEEDS DIALYSIS Time Seen by Provider: 09/01/17 01:41 Past History - Past Medical History Anemia: Yes Asthma: No Cancer: No Cardiac Disorders: No CVA: No COPD: No CHF: No DVT: No Dementia: No Diabetes: Yes (15 yrs Insulin dependent) Dialysis: Yes (M/W/F) Disorders: Yes (esrd) HTN: Yes Hypercholesterolemia: No Kidney Stones: (ESRD, Dialysis Mon, W, F, Left arm Fistula) Liver Disease: No Seizures: Yes (Several yrs ago, no medication) Thyroid Disease: No - Surgical History Abdominal Surgery: No Appendectomy: No Cardiac Surgery: Yes (myxoma removed 2013) Cholecystectomy: Yes Lung Surgery: No Neurologic Surgery: No Orthopedic Surgery: Yes (foot sx x2) - Immunization History Immunization Up to Date: Yes - Suicide/Smoking/Psychosocial Hx Smoking Status: No Smoking History: Never smoked Have you smoked in the past 12 months: No Number of Cigarettes Smoked Daily: 10 Hx Alcohol Use: No Drug/Substance Use Hx: No Substance Use Type: None Hx Substance Use Treatment: No <Becky Alba - Last Filed: 09/01/17 04:33> <Mirella Gaitan - Last Filed: 09/01/17 06:15> - Past Medical History Allergies/Adverse Reactions: Allergies Allergy/AdvReac Type Severity Reaction Status Date / Time No Known Drug Allergies Allergy Verified 08/30/17 16:55 lactose AdvReac Verified 08/30/17 16:55 Home Medications: Ambulatory Orders Losartan Potassium [Cozaar -] 100 mg PO DAILY 12/21/16 Labetalol HCl [Normodyne -] 400 mg PO TID #60 tablet 12/26/16 Ranitidine [Zantac -] 150 mg PO DAILY tablet 06/23/17 cloNIDine HCL [Catapres -] 0.3 mg PO TID 06/28/17 Oxycodone HCl [Oxycontin] 10 mg PO PRN PRN 07/12/17 Nifedipine ER [Procardia XL -] 30 mg PO DAILY 07/30/17 Insulin Detemir [Levemir Flextouch] 30 unit SQ BID #1 insuln.pen 08/30/17 Pantoprazole Sodium [Protonix -] 20 mg PO DAILY #7 tablet.ec 08/30/17 Review of Systems - Review of Systems Comments:: GENERAL/CONSTITUTIONAL: No: fever, chills, weakness, loss of appetite. HEAD, EYES, EARS, NOSE AND THROAT: No: change in vision, ear pain, discharge, sore throat, throat swelling. CARDIOVASCULAR: + midsternal chest pain. No: lightheadedness, palpitations, syncope RESPIRATORY: No: cough, shortness of breath, wheezing, hemoptysis, stridor. GASTROINTESTINAL: +vomitting. No: abdominal cramping, nausea, diarrhea, rectal bleeding, constipation. GENITOURINARY: No: dysuria, hematuria, frequency, urgency, flank pain. MUSCULOSKELETAL: No: back pain, neck pain, joint pain, muscle swelling or pain SKIN: No: lesions, pallor, rash or easy bruising. NEUROLOGIC: No: headache, vertigo, paresthesias, weakness ENDOCRINE: No: unexplained weight gain or loss HEMATOLOGIC/LYMPHATIC: No: anemia, easy bleeding, swelling nodes <Mirella Gaitan - Last Filed: 09/01/17 06:15> *Physical Exam - Vital Signs Last Vital Signs Temp Pulse Resp BP Pulse Ox 98.6 F 82 20 159/93 100 08/31/17 22:13 08/31/17 22:13 08/31/17 22:13 08/31/17 22:13 08/31/17 22:13 <Becky Alba - Last Filed: 09/01/17 04:33> - Vital Signs Last Vital Signs Temp Pulse Resp BP Pulse Ox 98.6 F 82 20 159/93 100 08/31/17 22:13 08/31/17 22:13 08/31/17 22:13 08/31/17 22:13 08/31/17 22:13 - Physical Exam Comments: GENERAL: Awake, alert, answers all questions appropriately. The patient is in no acute distress. HEAD: Normal with no signs of trauma. EYES: PERRLA, EOMI, sclera anicteric, conjunctiva clear. ENT: Ears normal, nares patent, oropharynx clear without exudates. Moist mucous membranes. NECK: Normal range of motion, supple without lymphadenopathy, JVD, or masses. LUNGS: Supplemental O2 in place. Breath sounds equal, clear to auscultation bilaterally. No wheezes, and no crackles. HEART:Regular rate and rhythm, normal S1 and S2 without murmur, rub or gallop. ABDOMEN: Soft, nontender, normoactive bowel sounds. No guarding, no rebound. EXTREMITIES: Edematous lower extremities bilaterally. Normal range of motion. No clubbing or cyanosis. No erythema, or tenderness. NEUROLOGICAL: Cranial nerves II through XII grossly intact. Normal speech. No focal neurological deficits. MUSCULOSKELETAL: Back nontender to palpation, no CVA tenderness SKIN: Dialysis fisula on left arm. Warm, Dry, no rashes or lesions noted. 09/01/17 06:15 <Mirella Gaitan - Last Filed: 09/01/17 06:15> ED Treatment Course - LABORATORY CBC & Chemistry Diagram: 09/01/17 02:09 09/01/17 02:09 <Becky Alba - Last Filed: 09/01/17 04:33> - LABORATORY CBC & Chemistry Diagram: 09/01/17 02:09 09/01/17 02:09 - ADDITIONAL ORDERS Additional order review: 09/01/17 02:09 RBC 3.64 MCV 84.9 MCHC 31.8 L RDW 18.8 H MPV 9.2 Neutrophils % 75.0 Lymphocytes % 10.3 D Monocytes % 13.1 H Eosinophils % 1.0 Basophils % 0.6 <Mirella Gaitan - Last Filed: 09/01/17 06:15> Medical Decision Making - Medical Decision Making 09/01/17 04:33 Laboratory Tests 08/30/17 08/30/17 09/01/17 18:45 18:45 02:09 WBC 9.2 D 7.8 Hgb 9.9 L D 9.8 L Hct 31.5 L D 30.9 L Plt Count 286 D 247 Sodium 130 L Potassium 3.8 Chloride 94 L Carbon Dioxide 24 Anion Gap 12 BUN 34 H Creatinine 6.3 H Creatine Kinase Troponin I B-Natriuretic Peptide Total Protein Albumin Serum , Qual 09/01/17 09/01/17 02:09 02:09 WBC Hgb Hct Plt Count Sodium 128 L Potassium 5.0 Chloride 96 L Carbon Dioxide 23 Anion Gap 9 BUN 48 H Creatinine 7.5 H* Creatine Kinase 61 Troponin I < 0.02 B-Natriuretic Peptide 31521.74 H Total Protein 8.0 Albumin 3.3 L Serum , Qual Negative 09/01/17 04:34 Case reviewed with Hospitalist Will place on observation Clinical Impression: missed dialysis, initial presentation chest pain, initial presentation <Becky Alba - Last Filed: 09/01/17 04:33> *DC/Admit/Observation/Transfer - Discharge Dispostion Decision to Admit order: Yes <Becky Alba - Last Filed: 09/01/17 04:33> - Attestations Scribe Attestion: 09/01/17 02:52 Documentation prepared by Mirella Gaitan, acting as medical coding specialist for Becky Alba MD. <Mirella Gaitan - Last Filed: 09/01/17 06:15> Diagnosis at time of Disposition: Missed dialysis, Chest pain Fluid overload Qualifiers: Hypervolemia type: unspecified Qualified Code(s): E87.70 - Fluid overload, unspecified - Discharge Dispostion Condition at time of disposition: Stable
[2017-09-01 02:42] LABS: BASO % 0.6 % (0-2.0); HEMATOCRIT 30.9 % (32.4-45.2); HEMOGLOBIN 9.8 GM/dL (10.7-15.3); LYMPH % 10.3 % (8-40); MCHC 31.8 g/dl (32.0-36.0); MEAN CELL VOLUME 84.9 fl (80-96); MEAN PLT VOLUME 9.2 fl (7.5-11.1); MONO % 13.1 % (3.8-10.2); PLATELET COUNT 247 K/MM3 (134-434); RBC 3.64 M/mm3 (3.60-5.2); RDW 18.8 % (11.6-15.6); WHITE BLOOD COUNT 7.8 K/mm3 (4.0-10.0)
[2017-09-01 03:10] LABS: ALBUMIN 3.3 g/dl (3.4-5.0); ANION GAP 9 (8-16); BILIRUBIN,TOTAL 0.5 mg/dL (0.2-1.0); BLOOD UREA NITROGEN 48 mg/dL (7-18); CALCIUM 8.7 mg/dL (8.5-10.1); CHLORIDE 96 mmol/L (98-107); CO2 23 mmol/L (21-32); GLUCOSE,RANDOM 56 mg/dL (74-106); SGOT/AST 18 U/L (15-37); SGPT/ALT 16 U/L (12-78); SODIUM 128 mmol/L (136-145)
[2017-09-01 03:24] LABS: ALK PHOS 941 U/L (45-117); N-TERMINAL BNP 49446.74 pg/ml (5-125)
[2017-09-01 03:28] LABS: CREATININE 7.5 mg/dL (0.55-1.02)
[2017-09-01] MEDS ORDERED: PANTOPRAZOLE 20 MG TABLET (FP) PO ONE (03:55)
[2017-09-01] MEDS ORDERED: PANTOPRAZOLE 40 MG TABLET (FP) ONE (04:17)
--- NOTE | 2017-09-01 04:40 | HP ---
CHIEF COMPLAINT: missed dialysis on wednesday PCP: none(has appointment at [facility] on September 11 for Pcp) Hemotherapist: HISTORY OF PRESENT ILLNESS: 27 yr old woman with ESRD on dialysis(anuric), uncontrolled DM, HTN, chronic pain, chronic foot ulcers, presents with burning-like substernal pain that has been occurring for past 3 weeks. pain is worse with food. Recently worse, had an episode of NBNB emesis on Wednesday. She presented to ED on Wednesday with epigastric pain and burning sensation substernally, missed her dialysis appointment due to ED stay. tried tums, pantoprazole and other otc acid reflux medications without relief. has been having poor po intake due to the pain. has not had an endoscopy in years. ER course was notable for: (1) ekg without any acute changes (2) (3) Recent Travel: none PAST MEDICAL HISTORY: HTN, IDDM, ESRD (HD MWF, anuric), Pulmonary Embolism (12/2016, as per chart review completed [facility] 6-mo treatment ), O2 dependent 3L PAST SURGICAL HISTORY: Social History: Smoking: never smoke Alcohol: never drinker Drugs: denies Family History: [place] Allergies No Known Drug Allergies Allergy (Verified 08/30/17 16:55) lactose Adverse Reaction (Verified 08/30/17 16:55) HOME MEDICATIONS: Home Medications OTC sleep-x sleep aide clonidine 0.3mg TID Nifedipine 30ER qdaily pantoprazole 20 mg po daily - recent rx from wednesday's ED visit oxycontin 10mg q6hr prn max 3 tabs daily tylenol 500mg OTC prn for pain REVIEW OF SYSTEMS CONSTITUTIONAL: Absent: fever, chills, diaphoresis, generalized weakness, malaise, loss of appetite, weight change HEENT: Absent: rhinorrhea, nasal congestion, throat pain, throat swelling, difficulty swallowing, mouth swelling, ear pain, eye pain, visual changes CARDIOVASCULAR: Absent: chest pain, syncope, palpitations, irregular heart rate, lightheadedness , peripheral edema RESPIRATORY: Absent: cough, shortness of breath, dyspnea with exertion, orthopnea, wheezing, stridor, hemoptysis GASTROINTESTINAL: Absent: abdominal pain, abdominal distension, nausea, vomiting, diarrhea, constipation, melena, hematochezia GENITOURINARY: Absent: dysuria, frequency, urgency, hesitancy, hematuria, flank pain, genital pain MUSCULOSKELETAL: Absent: myalgia, arthralgia, joint swelling, back pain, neck pain SKIN: Absent: rash, itching, pallor HEMATOLOGIC/IMMUNOLOGIC: Absent: easy bleeding, easy bruising, lymphadenopathy, frequent infections ENDOCRINE: Absent: unexplained weight gain, unexplained weight loss, heat intolerance, cold intolerance NEUROLOGIC: Absent: headache, focal weakness or paresthesias, dizziness, unsteady gait, seizure, mental status changes, bladder or bowel incontinence PSYCHIATRIC: Absent: anxiety, depression, suicidal or homicidal ideation, hallucinations. PHYSICAL EXAMINATION Vital Signs - 24 hr 08/31/17 22:13 Temperature 98.6 F Pulse Rate 82 Respiratory 20 Rate Blood Pressure 159/93 O2 Sat by Pulse 100 Oximetry (%) GENERAL: Awake, alert, and fully oriented, in no acute distress. HEAD: Normal with no signs of trauma. EYES: Pupils equal, round and reactive to light, extraocular movements intact, sclera anicteric, conjunctiva clear. No lid lag. EARS, NOSE, THROAT: oropharynx clear without exudates. Moist mucous membranes. left and right back molars with nonbleeding gum growths. no thrush NECK: Normal range of motion, supple without lymphadenopathy, JVD, or masses. LUNGS: Breath sounds equal, clear to auscultation bilaterally. No wheezes, and no crackles. No accessory muscle use. HEART: Regular rate and rhythm, normal S1 and S2 without murmur, rub or gallop. ABDOMEN: Soft, nontender, not distended, normoactive bowel sounds, no guarding, no rebound, no masses. No hepatomegaly or splenomegaly. MUSCULOSKELETAL: No bony deformities or tenderness. No CVA tenderness. UPPER EXTREMITIES: 2+ radial pulses, warm, well-perfused. No cyanosis. No clubbing. No peripheral edema. LOWER EXTREMITIES: nonpalpable dp pulses, warm, well-perfused. No calf tenderness. 3+ peripheral edema. b/l feet with cdi dressing(pt refused to uncover dressing) NEUROLOGICAL: Cranial nerves II-XII intact. Normal speech. Normal gait. PSYCHIATRIC: Cooperative. Good eye contact. Appropriate mood and affect. SKIN: Warm, dry, normal turgor, no rashes or lesions noted, normal capillary refill. Laboratory Results - last 24 hr 09/01/17 09/01/17 09/01/17 02:09 02:09 02:09 WBC 7.8 RBC 3.64 Hgb 9.8 L Hct 30.9 L MCV 84.9 MCH 27.0 MCHC 31.8 L RDW 18.8 H Plt Count 247 MPV 9.2 Neutrophils % 75.0 Lymphocytes % 10.3 D Monocytes % 13.1 H Eosinophils % 1.0 Basophils % 0.6 Nucleated RBC % 0 Sodium 128 L Potassium 5.0 Chloride 96 L Carbon Dioxide 23 Anion Gap 9 BUN 48 H Creatinine 7.5 H* Creat Clearance w eGFR 6.45 POC Glucometer Random Glucose 56 L Calcium 8.7 Total Bilirubin 0.5 AST 18 ALT 16 Alkaline Phosphatase 941 H Creatine Kinase 61 Troponin I < 0.02 B-Natriuretic Peptide 61479.74 H Total Protein 8.0 Albumin 3.3 L Serum , Qual Negative 09/01/17 03:07 WBC RBC Hgb Hct MCV MCH MCHC RDW Plt Count MPV Neutrophils % Lymphocytes % Monocytes % Eosinophils % Basophils % Nucleated RBC % Sodium Potassium Chloride Carbon Dioxide Anion Gap BUN Creatinine Creat Clearance w eGFR POC Glucometer 88.69010 Random Glucose Calcium Total Bilirubin AST ALT Alkaline Phosphatase Creatine Kinase Troponin I B-Natriuretic Peptide Total Protein Albumin Serum , Qual Active Medications Clonidine (Catapres -) 0.3 mg PO TID [facility] Heparin Sodium (Porcine) (Heparin -) 5,000 unit SQ TID [facility] Insulin Aspart (Novolog Vial Sliding Scale -) 1 vial SQ [facility]; Protocol Labetalol HCl (Normodyne -) 400 mg PO TID [facility] Losartan Potassium (Cozaar -) 100 mg PO DAILY [facility] Nifedipine (Procardia Xl -) 30 mg PO DAILY [facility] Oxycodone HCl (Oxycontin -) 10 mg PO Q8H PRN PRN Reason: PAIN LEVEL 7 - 10 ASSESSMENT/PLAN: 27 yr old woman with ESRD on HD, uncontrolled DM presents with acid reflux type symptoms and missed dialysis. - chest pain unlikley to be cardiac in nature, likely GI #GERD - GI evaluation, may need endoscopy - Dr. Newman consulted #ESRD on HD - consulted for HD #HTN - poorly controlled clonidine 0.3mg TID labetalol 400mg po TID procardial XL 30mg po qd cozaar 100mg po daily #DM - uncontrolled a1c 13 in july NISS ACHS BGM #Chronic pain (pain management Dr Dr. JuddShivani) - continue oxycodone #dvt: heparin tid #diet: diabetic/low Na/renal 1.2L restrict Visit type - Emergency Visit Emergency Visit: Yes ED Registration Date: 09/01/17 Care time: The patient presented to the Emergency Department on the above date and was hospitalized for further evaluation of their emergent condition. - New Patient This patient is new to me today: Yes Date on this admission: 10/02/17 - Critical Care Critical Care patient: No Hospitalist Screening - Colonoscopy Questionnaire Colonoscopy Questionnaire: Colonoscopy Questionnaire - Patient: 50 - 75 years old and never had a screening colonoscopy: Unknown History of colon or rectal polyps, or CA: Unknown History of IBD, Crohn's disease or UC: Unknown History of abdominal radiation therapy as a child: Unknown - Relative: 1 with colon or rectal CA, or polyps at age 60 or younger: Unknown Colon or rectal CA diagnosed at age 45 or younger: Unknown Multiple relatives with colon or rectal CA: Unknown - Outcome: Screening Result: Negative Screen
[2017-09-01] MEDS ORDERED: DEXTROSE 50%-WATER - 25 GM/50 ML VIAL IVPUSH ONE (04:48)
[2017-09-01] MEDS ORDERED: DEXTROSE 50%-WATER 25 GM/50 ML DISP.SYRIN ONE (04:52)
--- NOTE | 2017-09-01 04:54 | PN ---
Teaching Attending Note Name of Resident: Evan Tomas ATTENDING PHYSICIAN STATEMENT I saw and evaluated the patient. I reviewed the resident's note and discussed the case with the resident. I agree with the resident's findings and plan as documented. SUBJECTIVE: Patient is a 27 year old woman with ESRD (on hemodialysis MWF) and IDDM who returns to the ED with complaints of midsternal chest pain. Was in the ER yesterday for same complaint. She states that she is not able to eat or drink. She states that her symptoms initially began a couple weeks ago but has since worsened. However she has had similar pain in the past and got no relief with various PPIs. Has prior PE/DVT but came off coumadin due to GI bleeding. Had an EGD many years ago, no history of COPD but is on 3L home O2 (because she is short of breath all the time) and gets four hours hemodialysis three times a week. Says they teke of 3 to four liters of fluid during each treatment. Was hemodialyzed 4 days ago - missed scheduled dialysis yesterday. She denies any associated fevers, chills, SOB, cough, or urinary complaints. OBJECTIVE: Alert, withdrawn and sad. Not distressed on nasal canula O2. Vital Signs Period Temp Pulse Resp BP Sys/Ames Pulse Ox Last 24 Hr 98.6 F 82 20 159/93 100 HEENT: No Jaundice, eye redness or discharge, PERRLA, EOMI. Normocephalic, atraumatic. External ears are normal and hearing is grossly intact. No nasal discharge. Neck: Supple, nontender. No palpable adenopathy or thyromegaly. No JVD Chest: Good effort. Clear to auscultation and percussion. Heart: Regular. No S3, rub or murmur Abdomen: Not distended, soft, nontender and no HSM. No rebound or guarding. Normoactive bowel sounds. Ext: Peripheral pulses intact. Non pitting chronic leg edema with hyperpigmentation and thick skin in both legs. Left arm hemodialysis AV fistula. Skin: Warm and dry. No petechiae, rash or ecchymosis. Neuro: Alert. Oriented x3. CN 2-12 grossly intact. Sensation grossly intact in all four extremities and DTR are symmetric. Uses a walker Current Medications Generic Name Dose Route Start Last Admin Trade Name Freq PRN Reason Stop Dose Admin Clonidine 0.3 mg 09/01/17 06:00 Catapres - PO TID [facility] Heparin Sodium (Porcine) 5,000 unit 09/01/17 06:00 Heparin - SQ TID [facility] Hydralazine HCl 100 mg 09/01/17 06:00 Apresoline - PO TID [facility] Insulin Aspart 1 vial 09/01/17 07:00 Novolog Vial Sliding Scale - SQ ACHS [facility] Protocol Labetalol HCl 400 mg 09/01/17 06:00 Normodyne - PO TID [facility] Losartan Potassium 100 mg 09/01/17 10:00 Cozaar - PO DAILY [facility] Nifedipine 30 mg 09/01/17 10:00 Procardia Xl - PO DAILY [facility] Sevelamer Carbonate 1,600 mg 09/01/17 08:00 Renvela - PO TIDCM [facility] Home Medications Medication Instructions Recorded Sevelamer Carbonate [Renvela -] 1,600 mg PO TIDCM #60 tab 07/14/16 Losartan Potassium [Cozaar -] 100 mg PO DAILY 12/21/16 Labetalol HCl [Normodyne -] 400 mg PO TID #60 tablet 12/26/16 Docusate Sodium [Colace -] 100 mg PO Q12H PRN capsule 06/23/17 Ranitidine [Zantac -] 150 mg PO DAILY tablet 06/23/17 hydrALAZINE HCL [Apresoline -] 100 mg PO TID 30 Days #60 tablet 06/23/17 cloNIDine HCL [Catapres -] 0.3 mg PO TID 06/28/17 Oxycodone HCl [Oxycontin] 10 mg PO PRN PRN 07/12/17 Calcium Carbonate [Calcium] 500 mg PO ASDIR 07/30/17 Nifedipine ER [Procardia XL -] 30 mg PO DAILY 07/30/17 Clindamycin [Cleocin -] 300 mg PO DAILY #28 capsule 08/17/17 Insulin Detemir [Levemir Flextouch] 30 unit SQ BID #1 insuln.pen 08/30/17 Pantoprazole Sodium [Protonix -] 20 mg PO DAILY #7 tablet.ec 08/30/17 Abnormal Lab Results 09/01/17 09/01/17 02:09 02:09 Hgb 9.8 L Hct 30.9 L MCHC 31.8 L RDW 18.8 H Monocytes % 13.1 H Sodium 128 L Chloride 96 L BUN 48 H Creatinine 7.5 H* Random Glucose 56 L Alkaline Phosphatase 941 H B-Natriuretic Peptide 72720.74 H Albumin 3.3 L ASSESSMENT AND PLAN: 1. Atypical Chestpain - Will admit as an observation case to rule out acute OK with serial troponin and EKG. Thusfar no evidence of acute OK. Needs another EGD to rule out PUD or uremic gastritis. Needs adequate dialytic fluid removal to control BP and possibly reduce total number of antihypertensive medications. Also, more intensive dialysis may help ameliorate any uremic gastritis, mobilize excess fluid and possibly permit weaning of home O2. ECHO and/or CT scan to rule out posterior pericardial effusion. 2. DM - Continue current regimen 3. ESRD - Consult nephrology and consider more frequent hemodialysis. Anemia likely mostly due to ESRD. Check stool guaiac and iron studies if not done lately. 4. Depression - Likely affecting compliance and her general outlook. Will start Zoloft 50 mg po q HS and provide generous emotional support. 5. DVT prophylaxis - Heparin 5000u sq tid 6. Advance directives - Full code
[2017-09-01] MEDS ORDERED: hydrALAZINE HCL 50 MG TABLET (FP) PO SCH (06:00)
[2017-09-01] MEDS ORDERED: cloNIDine HCL 0.1 MG TABLET ONE (06:41)
[2017-09-01] MEDS ORDERED: HEPARIN NA (PORCINE) 5,000 UNITS/ML 1ML VIAL ONE (06:42)
[2017-09-01] MEDS ORDERED: LABETALOL HCL 100 MG TABLET (FP) ONE (06:42)
[2017-09-01] MEDS ORDERED: INSULIN (NOVOLOG) ASPART 100 UNITS/ML 10ML VIAL ONE (06:42)
[2017-09-01] MEDS: LABETALOL HCL 200 MG TABLET (FP) PO SCH ×3 (06:47→23:35)
[2017-09-01] MEDS: INSULIN SLIDING SCALE (NOVOLOG) 1 VIAL SQ SCH ×4 (06:47→23:47)
[2017-09-01] MEDS: cloNIDine HCL 0.1 MG TABLET PO SCH ×3 (06:47→23:34)
[2017-09-01] MEDS: HEPARIN NA (PORCINE) 5,000 UNITS/ML 1ML VIAL SQ SCH ×3 (06:47→23:35)
[2017-09-01] MEDS: oxyCODONE HCL 10 MG SUSTAINED ACTING TABLET PO PRN ×2 (06:48→23:17)
[2017-09-01] MEDS ORDERED: oxyCODONE HCL 5 MG TABLET ONE (06:49)
[2017-09-01] MEDS ORDERED: SEVELAMER CARBONATE 800 MG TAB (FP) PO SCH (08:00)
[2017-09-01] MEDS ORDERED: SODIUM CHLORIDE 250 ML IV PRN ×2 (10:02→18:02)
[2017-09-01] MEDS: NIFEdipine E.R. 30 MG TABLET (FP) PO SCH (10:34)
[2017-09-01] MEDS: RANITIDINE HCL 150 MG TABLET (FP) PO SCH ×2 (10:34→23:34)
[2017-09-01] MEDS: LOSARTAN POTASSIUM 50 MG TABLET (FP) PO SCH (10:35)
--- NOTE | 2017-09-01 11:02 | CON.GI ---
Consult Consult Specialty:: GI Reason for Consultation:: epigastric pain and GERD-like symptoms - History of Present Illness History of Present Illness: and chart reviewed. Events noted. As per initial intake: 27 yr old woman with ESRD on dialysis(anuric), uncontrolled DM, HTN, chronic pain, chronic foot ulcers, presents with burning-like substernal pain that has been occurring for past 3 weeks. pain is worse with food. Recently worse, had an episode of NBNB emesis on Wednesday. She presented to ED on Wednesday with epigastric pain and burning sensation substernally, missed her dialysis appointment due to ED stay. tried tums, pantoprazole and other otc acid reflux medications without relief. has been having poor po intake due to the pain. has not had an endoscopy in years. ER course was notable for: (1) ekg without any acute changes Other than what is encountered the patient corroborates the above history. Reports chronic Zantac use for epigastric, nonradiating, 4/10, deep pain with occasional vomiting. No clear aggravating, or alleviating factors. Zantac occasionally helps. Had upper endoscopy 4-5 years ago as far as she can recall. Does not recall significant findings. the patient also reports persistent reflux symptoms with sensation of food going down very very slow. There is no history of food impaction, regurgitation of undigested food, early satiety. Denies chronic NSAID, alcohol use. Blood work significant for electrolyte abnormalities, nemia with high RDW and isolated elevated alkaline phosphatase. 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, PE, DVT) Pulmonary: Yes: Pulmonary Embolus Renal/: Yes: Renal Failure, Hemodialysis ...LMP: 05/13/17 Infectious Disease: Yes: MRSA (history of bacteremia, recent mrsa foot abscess) Endocrine: Yes: Diabetes Mellitus (type 1 on insulin pump) Additional Medical History: DVT, PE on coumadin - Past Surgical History Past Surgical History: Yes: AV Fistula/Graft (Right arm) - Alcohol/Substance Use Hx Alcohol Use: No History of Substance Use: reports: None - Smoking History Smoking history: Never smoked Have you smoked in the past 12 months: No Aproximately how many cigarettes per day: 10 - Social History Usual Living Arrangement: With Parent ADL: Independent Occupation: unemployed History of Recent Travel: No Home Medications - Allergies Allergies/Adverse Reactions: Allergies Allergy/AdvReac Type Severity Reaction Status Date / Time No Known Drug Allergies Allergy Verified 08/30/17 16:55 lactose AdvReac Verified 08/30/17 16:55 - Home Medications Home Medications: Ambulatory Orders Losartan Potassium [Cozaar -] 100 mg PO DAILY 12/21/16 Labetalol HCl [Normodyne -] 400 mg PO TID #60 tablet 12/26/16 Ranitidine [Zantac -] 150 mg PO DAILY tablet 06/23/17 cloNIDine HCL [Catapres -] 0.3 mg PO TID 06/28/17 Oxycodone HCl [Oxycontin] 10 mg PO PRN PRN 07/12/17 Nifedipine ER [Procardia XL -] 30 mg PO DAILY 07/30/17 Insulin Detemir [Levemir Flextouch] 30 unit SQ BID #1 insuln.pen 08/30/17 Pantoprazole Sodium [Protonix -] 20 mg PO DAILY #7 tablet.ec 08/30/17 Family Disease History - Family Disease History Family Disease History: Diabetes: Grandparent (HTN), Heart Disease: Grandparent , Other: Father (unknown), Mother (HTN) Review of Systems Findings/Remarks: as per H&P and HPI Physical Exam-GI Vital Signs: Vital Signs Temperature 97.7 F 09/01/17 08:37 Pulse Rate 73 09/01/17 10:48 Respiratory Rate 18 09/01/17 10:48 Blood Pressure 145/91 09/01/17 10:48 O2 Sat by Pulse Oximetry (%) 100 09/01/17 08:37 Constitutional: Yes: Calm, Ashen Eyes: No: Sclera Icterus Cardiovascular: No: Bradycardia, Tachycardia Respiratory: Yes: Regular Gastrointestinal Inspection: No: Distention ...Auscultate: Yes: Normoactive Bowel Sounds ...Palpate: Yes: Soft. No: Firm/Rigid, Guarding, Tenderness Neurological: Yes: Alert, Oriented Labs: CBC, BMP 09/01/17 02:09 09/01/17 02:09 Laboratory Last Values WBC 7.8 K/mm3 (4.0-10.0) 09/01/17 02:09 RBC 3.64 M/mm3 (3.60-5.2) 09/01/17 02:09 Hgb 9.8 GM/dL (10.7-15.3) L 09/01/17 02:09 Hct 30.9 % (32.4-45.2) L 09/01/17 02:09 MCV 84.9 fl (80-96) 09/01/17 02:09 MCH 27.0 pg (25.7-33.7) 09/01/17 02:09 MCHC 31.8 g/dl (32.0-36.0) L 09/01/17 02:09 RDW 18.8 % (11.6-15.6) H 09/01/17 02:09 Plt Count 247 K/MM3 (134-434) 09/01/17 02:09 MPV 9.2 fl (7.5-11.1) 09/01/17 02:09 Neutrophils % 75.0 % (42.8-82.8) 09/01/17 02:09 Lymphocytes % 10.3 % (8-40) D 09/01/17 02:09 Monocytes % 13.1 % (3.8-10.2) H 09/01/17 02:09 Eosinophils % 1.0 % (0-4.5) 09/01/17 02:09 Basophils % 0.6 % (0-2.0) 09/01/17 02:09 Nucleated RBC % 0 % (0-0) 09/01/17 02:09 Sodium 128 mmol/L (136-145) L 09/01/17 02:09 Potassium 5.0 mmol/L (3.5-5.1) 09/01/17 02:09 Chloride 96 mmol/L (98-107) L 09/01/17 02:09 Carbon Dioxide 23 mmol/L (21-32) 09/01/17 02:09 Anion Gap 9 (8-16) 09/01/17 02:09 BUN 48 mg/dL (7-18) H 09/01/17 02:09 Creatinine 7.5 mg/dL (0.55-1.02) H* 09/01/17 02:09 Creat Clearance w eGFR 6.45 (>60) 09/01/17 02:09 POC Glucometer 184.60227 UNITS (80-120) 09/01/17 05:59 Random Glucose 56 mg/dL (74-106) L 09/01/17 02:09 Calcium 8.7 mg/dL (8.5-10.1) 09/01/17 02:09 Total Bilirubin 0.5 mg/dL (0.2-1.0) 09/01/17 02:09 AST 18 U/L (15-37) 09/01/17 02:09 ALT 16 U/L (12-78) 09/01/17 02:09 Alkaline Phosphatase 941 U/L (45-117) H 09/01/17 02:09 Creatine Kinase 61 IU/L (26-192) 09/01/17 02:09 Troponin I < 0.02 ng/ml (0.00-0.05) 09/01/17 02:09 B-Natriuretic Peptide 00447.74 pg/ml (5-125) H 09/01/17 02:09 Total Protein 8.0 g/dl (6.4-8.2) 09/01/17 02:09 Albumin 3.3 g/dl (3.4-5.0) L 09/01/17 02:09 Serum , Qual Negative 09/01/17 02:09 Problem List - Problems (1) Dyspepsia Code(s): R10.13 - EPIGASTRIC PAIN (2) Chronic GERD Code(s): K21.9 - GASTRO-ESOPHAGEAL REFLUX DISEASE WITHOUT ESOPHAGITIS (3) Alkaline phosphatase elevation Code(s): R74.8 - ABNORMAL LEVELS OF OTHER SERUM ENZYMES Assessment/Plan a 27-year-old female with the above history and persistent epigastric symptoms. Rule out reflux esophagitis, peptic ulcer disease, gastritis, duodenitis, pancreaticobiliary etiology. Obtain ultrasound of the liver, fractionated alkaline phosphatase, lipase. Agree with PPI and H2 RB. PPI and IM and H2 RB daily at bedtime. Plan upper endoscopy. Discussed with the patient.
--- NOTE | 2017-09-01 13:21 | EKG ---
Test Reason : Blood Pressure : / mmHG Vent. Rate : 078 BPM Atrial Rate : 078 BPM P-R Int : 178 ms QRS Dur : 086 ms QT Int : 390 ms P-R-T Axes : 037 017 074 degrees QTc Int : 444 ms NORMAL SINUS RHYTHM POSSIBLE ANTERIOR INFARCT (CITED ON OR BEFORE 04-MAR-2017) ABNORMAL ECG WHEN COMPARED WITH ECG OF 30-AUG-2017 18:16, NO SIGNIFICANT CHANGE WAS FOUND Confirmed by OLIVA FERNANDEZ MD ([id number]) on 09/01/2017 1:21:01 PM Referred By: Confirmed By:OLIVA FERNANDEZ MD
--- NOTE | 2017-09-01 13:24 | PN ---
Teaching Attending Note Name of Resident: Keaton Reddy ATTENDING PHYSICIAN STATEMENT I saw and evaluated the patient. I reviewed the resident's note and discussed the case with the resident. I agree with the resident's findings and plan as documented. SUBJECTIVE:c/o epigastric pain for several weeks. no relief with OTC medication ( rantidine/tums/maalox). states pain is worse with eating and improves with movement and laying down. vomited 2 days ago non bilious and non-bloody. now sometimes difficulty swallowing both solids and liquids due to the pain. no events since. has not seen PMD about this. did have EGD several years ago to evaluate if she was bleeding but had no symptoms at that time and reports EGD to be normal. denies CP, SOB, fever,chills, N/V/C/D, metallic taste in the mouth or frequent belching. recent use of NSAIDS missed HD on wednesday but tolerated session on Wednesday. did not go because she was vomiting OBJECTIVE: Last Vital Signs Temp Pulse Resp BP Pulse Ox 97.7 F 73 18 145/91 100 09/01/17 08:37 09/01/17 10:48 09/01/17 10:48 09/01/17 10:48 09/01/17 08:37 General NAD HEENT no oral plaques CV S1 S2 RRR Lungs CTA B/L no wheezing/rales/rhonchi Abdomen soft NT/ND Extremities 2+ pitting edema B/L ASSESSMENT AND PLAN: 27yo yo F with PMH ESRD on HD, DM, PE/DVT presented to the ER with epigastric pain 1. Epigastric pain- will need to r/o gastritis vs PUD. stated in the ER that it was CP however now refers to epigastric. check 2nd troponin to r/o cardiac due to pt having high risk factors. will start protonix trial to evaluate if improves. may benefit from EGD to evaluate inpatient vs outpatient per GI. Gi consulted. 2. ESRD on HD- plan for HD today. and resume normal HD schedule. Renal consulted 3. HTN- known to be difficult to control. current BP is very good BP at this time. continue current medications 4. DM- will half tonight dose of levemir for posisble EGD tomorrow. , iss and bgm 5. PE/DVT- took herself off eliquis due to epistaxis. was on it for 6 months. doppler last admission last month showed no DVT. no indication for treatment at this time. will need to confirm with PMD if hypercoagability workup has been completed as pt is unaware 6. DVT ppx- hep sq
--- NOTE | 2017-09-01 16:26 | PN ---
Physical Exam: SUBJECTIVE: Patient seen and examined at bedside. Pt complains of abdominal pain. OBJECTIVE: Vital Signs Period Temp Pulse Resp BP Sys/Ames Pulse Ox Last 24 Hr 97.7 F-98.6 F 72-89 16-20 139-160/84-103 97-100 GENERAL: The patient is awake, alert, and fully oriented, in no acute distress. HEAD: Normal with no signs of trauma. EYES: extraocular movements intact, sclera anicteric, conjunctiva clear. No ptosis. ENT: oropharynx clear without exudates, moist mucous membranes. NECK: Trachea midline, full range of motion, supple. LUNGS: Breath sounds equal, clear to auscultation bilaterally, no wheezes, no crackles, no accessory muscle use. HEART: Regular rate and rhythm, S1, S2 without murmur, rub or gallop. ABDOMEN: Soft, nontender (pt states pain is alleviated by abdominal palpation), nondistended, normoactive bowel sounds, no guarding, no rebound, no hepatosplenomegaly, no masses. EXTREMITIES: 2+ pulses, warm, well-perfused, 2+ edema. NEUROLOGICAL: Normal speech, gait not observed. PSYCH: Normal mood, normal affect. SKIN: Warm, dry, normal turgor, no rashes or lesions noted Laboratory Results - last 24 hr 09/01/17 09/01/17 09/01/17 02:09 02:09 02:09 WBC 7.8 RBC 3.64 Hgb 9.8 L Hct 30.9 L MCV 84.9 MCH 27.0 MCHC 31.8 L RDW 18.8 H Plt Count 247 MPV 9.2 Neutrophils % 75.0 Lymphocytes % 10.3 D Monocytes % 13.1 H Eosinophils % 1.0 Basophils % 0.6 Nucleated RBC % 0 Sodium 128 L Potassium 5.0 Chloride 96 L Carbon Dioxide 23 Anion Gap 9 BUN 48 H Creatinine 7.5 H* Creat Clearance w eGFR 6.45 POC Glucometer Random Glucose 56 L Calcium 8.7 Total Bilirubin 0.5 AST 18 ALT 16 Alkaline Phosphatase 941 H Creatine Kinase 61 Troponin I < 0.02 B-Natriuretic Peptide 46840.74 H Total Protein 8.0 Albumin 3.3 L Serum , Qual Negative 09/01/17 09/01/17 09/01/17 03:07 05:59 12:11 WBC RBC Hgb Hct MCV MCH MCHC RDW Plt Count MPV Neutrophils % Lymphocytes % Monocytes % Eosinophils % Basophils % Nucleated RBC % Sodium Potassium Chloride Carbon Dioxide Anion Gap BUN Creatinine Creat Clearance w eGFR POC Glucometer 88.96911 184.85250 107 Random Glucose Calcium Total Bilirubin AST ALT Alkaline Phosphatase Creatine Kinase Troponin I B-Natriuretic Peptide Total Protein Albumin Serum , Qual Active Medications Generic Name Dose Route Start Last Admin Trade Name Freq PRN Reason Stop Dose Admin Clonidine 0.3 mg 09/01/17 06:00 09/01/17 06:47 Catapres - PO 0.3 mg TID ROSA MARIA Administration Epoetin Abiel 10,000 unit 09/01/17 10:03 Epogen - IVPUSH 09/01/17 10:04 ONCE ONE Heparin Sodium (Porcine) 5,000 unit 09/01/17 06:00 09/01/17 06:47 Heparin - SQ 5,000 unit TID ROSA MARIA Administration Sodium Chloride 250 mls @ 3,000 mls/hr 09/01/17 10:02 Normal Saline - IV 09/02/17 10:02 PRN PRN Hypotension during Dialysis Sodium Chloride 250 mls @ 3,000 mls/hr 09/01/17 10:03 Normal Saline - IV 09/02/17 10:03 PRN PRN Hypotension during Dialysis Insulin Aspart 1 vial 09/01/17 07:00 09/01/17 12:11 Novolog Vial Sliding Scale - SQ Not Given ACHS [facility] Protocol Labetalol HCl 400 mg 09/01/17 06:00 09/01/17 06:47 Normodyne - PO 400 mg TID ROSA MARIA Administration Losartan Potassium 100 mg 09/01/17 10:00 09/01/17 10:35 Cozaar - PO 100 mg DAILY ROSA MARIA Administration Nifedipine 30 mg 09/01/17 10:00 09/01/17 10:34 Procardia Xl - PO 30 mg DAILY ROSA MARIA Administration Oxycodone HCl 10 mg 09/01/17 05:18 09/01/17 06:48 Oxycontin - PO 10 mg Q8H PRN Administration PAIN LEVEL 7 - 10 Ranitidine HCl 150 mg 09/01/17 10:00 09/01/17 10:34 Zantac - PO 150 mg BID ROSA MARIA Administration ASSESSMENT/PLAN: 27 yr old woman with ESRD on HD, uncontrolled DM presents with acid reflux type symptoms and missed dialysis. #GERD - GI on board - for endoscopy tomorrow - unlikley to be cardiac in nature #ESRD - - for HD today #HTN clonidine 0.3mg TID labetalol 400mg po TID procardial XL 30mg po qd cozaar 100mg po daily #DM - uncontrolled a1c 13 in july -NISS -BGM #FEN -Not on fluids -lytes: hyponatremia -diet: diabetic/low Na/renal 1.2L restrict #ppx -dvt: heparin tid Keaton Reddy MD PGY-1 IM Visit type - Emergency Visit Emergency Visit: Yes ED Registration Date: 09/01/17 Care time: The patient presented to the Emergency Department on the above date and was hospitalized for further evaluation of their emergent condition. - New Patient This patient is new to me today: No - Critical Care Critical Care patient: No - Discharge Referral Referred to [facility] Med P.C.: No
--- NOTE | 2017-09-01 17:53 | CONSULT ---
Consult - text type - Consultation Consultation Note: Renal consult for ESRD on HD This is a 27 year old woman with PMHx of ESRD on HD, Insulin dependent DM, Hypertension, Anemia, Hx of PE who presented with Abd pain with N/V. Pt missed last dialysis on wednesday b/c of abd pain. + leg swelling. No CP or SOB. On O2. No fever, chills. PMhx: as above Allergies: NKDA Family Hx: NC Social hx: no T/A/D ROS: As per HPI Home Medications Medication Instructions Recorded Losartan Potassium [Cozaar -] 100 mg PO DAILY 12/21/16 Labetalol HCl [Normodyne -] 400 mg PO TID #60 tablet 12/26/16 cloNIDine HCL [Catapres -] 0.3 mg PO TID 06/28/17 Oxycodone HCl [Oxycontin] 10 mg PO Q6H PRN 07/12/17 Nifedipine ER [Procardia XL -] 30 mg PO DAILY 07/30/17 Insulin Detemir [Levemir Flextouch] 30 unit SQ BID #1 insuln.pen 08/30/17 Pantoprazole Sodium [Protonix -] 20 mg PO DAILY #7 tablet.ec 08/30/17 Hydralazine HCl 100 mg PO TID 09/01/17 Vital Signs Temperature 98.2 F 09/01/17 14:56 Pulse Rate 73 09/01/17 14:56 Respiratory Rate 18 09/01/17 14:56 Blood Pressure 139/84 09/01/17 14:56 O2 Sat by Pulse Oximetry (%) 100 09/01/17 16:42 NAD MMM, No JVD RRR, No M/R CTA soft, ND mild abd tenderness, no rebound + edema in LE CBC, BMP 09/01/17 02:09 09/01/17 02:09 Current Medications Clonidine (Catapres -) 0.3 mg PO TID [facility] Last Admin: 09/01/17 16:16 Dose: 0.3 mg Epoetin Abiel (Epogen -) 10,000 unit IVPUSH ONCE ONE Stop: 09/01/17 10:04 Heparin Sodium (Porcine) (Heparin -) 5,000 unit SQ TID ROSA MARIA Last Admin: 09/01/17 16:20 Dose: 5,000 unit Sodium Chloride (Normal Saline -) 250 mls @ 3,000 mls/hr IV PRN PRN PRN Reason: Hypotension during Dialysis Stop: 09/02/17 10:02 Sodium Chloride (Normal Saline -) 250 mls @ 3,000 mls/hr IV PRN PRN PRN Reason: Hypotension during Dialysis Stop: 09/02/17 10:03 Insulin Aspart (Novolog Vial Sliding Scale -) 1 vial SQ [facility]; Protocol Last Admin: 09/01/17 12:11 Dose: Not Given Labetalol HCl (Normodyne -) 400 mg PO TID [facility] Last Admin: 09/01/17 16:17 Dose: 400 mg Losartan Potassium (Cozaar -) 100 mg PO DAILY [facility] Last Admin: 09/01/17 10:35 Dose: 100 mg Nifedipine (Procardia Xl -) 30 mg PO DAILY [facility] Last Admin: 09/01/17 10:34 Dose: 30 mg Oxycodone HCl (Oxycontin -) 10 mg PO Q8H PRN PRN Reason: PAIN LEVEL 7 - 10 Last Admin: 09/01/17 06:48 Dose: 10 mg Ranitidine HCl (Zantac -) 150 mg PO BID [facility] Last Admin: 09/01/17 10:34 Dose: 150 mg 27 year old woman with PMHx of ESRD on HD, Insulin dependent DM, Hypertension, Anemia, Hx of PE who presented with Abd pain with N/V. Pt missed last dialysis on wednesday b/c of abd pain. #ESRD on HD #Abd pain #Hypertension #DM #Anemia For dialysis today with UF as tolerated for Endoscopy tomorrow per GI continue home antihypertensives will continue MACIE with HD Thank you Will follow Nathan Vo DO
[2017-09-01] MEDS ORDERED: EPOETIN ALFA 10,000 UNIT/1 ML VIAL IVPUSH ONE (18:00)
[2017-09-01] MEDS: SEVELAMER CARBONATE 800 MG TAB (FP) PO SCH ×2 (18:35→18:36)
[2017-09-01] MEDS ORDERED: INSULIN (LEVEMIR) 100 UNITS/ML UNITS SQ SCH (20:00)
[2017-09-01] MEDS: hydrALAZINE HCL 50 MG TABLET (FP) PO SCH (23:34)
[2017-09-01] MEDS: INSULIN (LEVEMIR) 100 UNITS/ML UNITS SQ SCH (23:47)
[2017-09-02] MEDS: INSULIN SLIDING SCALE (NOVOLOG) 1 VIAL SQ SCH ×3 (06:37→16:28)
[2017-09-02] MEDS: INSULIN (LEVEMIR) 100 UNITS/ML UNITS SQ SCH (06:37)
[2017-09-02] MEDS: cloNIDine HCL 0.1 MG TABLET PO SCH ×2 (06:39→14:23)
[2017-09-02] MEDS: hydrALAZINE HCL 50 MG TABLET (FP) PO SCH ×2 (06:39→14:23)
[2017-09-02] MEDS: LABETALOL HCL 200 MG TABLET (FP) PO SCH ×2 (06:41→14:24)
[2017-09-02] MEDS: HEPARIN NA (PORCINE) 5,000 UNITS/ML 1ML VIAL SQ SCH ×2 (06:44→14:24)
[2017-09-02 08:26] LABS: BASO % 0.6 % (0-2.0); EOS % 0.8 % (0-4.5); HEMATOCRIT 28.2 % (32.4-45.2); LYMPH % 11.8 % (8-40); MEAN CELL VOLUME 84.6 fl (80-96); MEAN PLT VOLUME 8.7 fl (7.5-11.1); MONO % 14.5 % (3.8-10.2); NEUT % 72.3 % (42.8-82.8); PLATELET COUNT 203 K/MM3 (134-434); RBC 3.33 M/mm3 (3.60-5.2); RDW 18.8 % (11.6-15.6); WHITE BLOOD COUNT 6.7 K/mm3 (4.0-10.0)
[2017-09-02 08:44] LABS: INR 1.05 (0.82-1.09); PROTHROMBIN TIME (PATIENT) 11.9 SEC (9.7-13.0)
[2017-09-02] MEDS: LOSARTAN POTASSIUM 50 MG TABLET (FP) PO SCH (09:06)
[2017-09-02] MEDS: oxyCODONE HCL 10 MG SUSTAINED ACTING TABLET PO PRN (09:06)
[2017-09-02 09:09] LABS: ALBUMIN 2.8 g/dl (3.4-5.0); ANION GAP 8 (8-16); CALCIUM 7.6 mg/dL (8.5-10.1); CHLORIDE 101 mmol/L (98-107); CO2 28 mmol/L (21-32); GLUCOSE,RANDOM 151 mg/dL (74-106); POTASSIUM 3.5 mmol/L (3.5-5.1); SODIUM 137 mmol/L (136-145)
[2017-09-02] MEDS: NIFEdipine E.R. 30 MG TABLET (FP) PO SCH (09:09)
[2017-09-02 09:10] LABS: BLOOD UREA NITROGEN 25 mg/dL (7-18); LIPASE 239 U/L (73-393)
[2017-09-02] MEDS: RANITIDINE HCL 150 MG TABLET (FP) PO SCH (09:11)
[2017-09-02 09:13] LABS: ALK PHOS 812 U/L (45-117); BILIRUBIN,TOTAL 0.6 mg/dL (0.2-1.0); CREATININE 4.7 mg/dL (0.55-1.02); SGOT/AST 22 U/L (15-37); SGPT/ALT 17 U/L (12-78)
[2017-09-02] MEDS ORDERED: LIDOCAINE HCL/PF 2% SDV 5ML VIAL ONE (12:08)
[2017-09-02] MEDS ORDERED: PROPOFOL 20 ML ONE (12:08)
--- NOTE | 2017-09-02 12:29 | PROC ---
Endoscopy Procedure Endoscopy procedure completed. Please see scanned procedure report. food in stomach after 12 hrs fasting, r/o gastroparesis r/o victorino esophagitis, otherwise no significant findings in th estomach, or proximal small bowel. Diflucan po Gastric emptying study, if positive - will try reglan gastroparesis diet await biopsies
[2017-09-02 12:36] VITALS: TEMP 98.2
--- NOTE | 2017-09-02 13:48 | PN ---
Physical Exam: SUBJECTIVE: Patient seen and examined at bedside. OBJECTIVE: Vital Signs Period Temp Pulse Resp BP Sys/Ames Pulse Ox Last 24 Hr 97.7 F-98.2 F 72-90 12-20 120-162/66-101 99-100 GENERAL: The patient is awake, alert, and fully oriented, in no acute distress. HEAD: Normal with no signs of trauma. EYES: PERRL, extraocular movements intact, sclera anicteric, conjunctiva clear. No ptosis. ENT: Ears normal, nares patent, oropharynx clear without exudates, moist mucous membranes. NECK: Trachea midline, full range of motion, supple. LUNGS: Breath sounds equal, clear to auscultation bilaterally, no wheezes, no crackles, no accessory muscle use. HEART: Regular rate and rhythm, S1, S2 without murmur, rub or gallop. ABDOMEN: Soft, nontender, nondistended, normoactive bowel sounds, no guarding, no rebound, no hepatosplenomegaly, no masses. EXTREMITIES: 2+ pulses, warm, well-perfused, no edema. NEUROLOGICAL: Cranial nerves II through XII grossly intact. Normal speech, gait not observed. PSYCH: Normal mood, normal affect. SKIN: Warm, dry, normal turgor, no rashes or lesions noted Laboratory Results - last 24 hr 09/01/17 09/01/17 09/02/17 17:25 23:32 06:26 WBC RBC Hgb Hct MCV MCH MCHC RDW Plt Count MPV Neutrophils % Lymphocytes % Monocytes % Eosinophils % Basophils % Nucleated RBC % PT with INR INR Sodium Potassium Chloride Carbon Dioxide Anion Gap BUN Creatinine Creat Clearance w eGFR POC Glucometer 417 327 190 Random Glucose Calcium Total Bilirubin AST ALT Alkaline Phosphatase Total Protein Albumin Lipase 09/02/17 09/02/17 09/02/17 08:00 08:00 08:00 WBC 6.7 RBC 3.33 L Hgb 9.0 L Hct 28.2 L MCV 84.6 MCH 27.0 MCHC 32.0 RDW 18.8 H Plt Count 203 MPV 8.7 Neutrophils % 72.3 Lymphocytes % 11.8 Monocytes % 14.5 H Eosinophils % 0.8 Basophils % 0.6 Nucleated RBC % 0 PT with INR 11.90 INR 1.05 Sodium 137 Potassium 3.5 Chloride 101 Carbon Dioxide 28 Anion Gap 8 BUN 25 H Creatinine 4.7 H Creat Clearance w eGFR 11.07 POC Glucometer Random Glucose 151 H Calcium 7.6 L Total Bilirubin 0.6 AST 22 ALT 17 Alkaline Phosphatase 812 H Total Protein 7.0 Albumin 2.8 L Lipase 239 09/02/17 11:40 WBC RBC Hgb Hct MCV MCH MCHC RDW Plt Count MPV Neutrophils % Lymphocytes % Monocytes % Eosinophils % Basophils % Nucleated RBC % PT with INR INR Sodium Potassium Chloride Carbon Dioxide Anion Gap BUN Creatinine Creat Clearance w eGFR POC Glucometer 128 Random Glucose Calcium Total Bilirubin AST ALT Alkaline Phosphatase Total Protein Albumin Lipase Active Medications Generic Name Dose Route Start Last Admin Trade Name Freq PRN Reason Stop Dose Admin Clonidine 0.3 mg 09/01/17 06:00 09/02/17 06:39 Catapres - PO 0.3 mg TID ROSA MARIA Administration Fluconazole 200 mg 09/02/17 13:27 Diflucan - PO 09/02/17 13:28 ONCE ONE Fluconazole 100 mg 09/03/17 10:00 Diflucan - PO DAILY [facility] Heparin Sodium (Porcine) 5,000 unit 09/01/17 06:00 09/02/17 06:44 Heparin - SQ Not Given TID [facility] Hydralazine HCl 100 mg 09/01/17 22:00 09/02/17 06:39 Apresoline - PO 100 mg TID [facility] Administration Sodium Chloride 250 mls @ 3,000 mls/hr 09/01/17 18:02 Normal Saline - IV 09/02/17 18:01 PRN PRN Hypotension during Dialysis Insulin Aspart 1 vial 09/01/17 07:00 09/02/17 11:52 Novolog Vial Sliding Scale - SQ Not Given ACHS [facility] Protocol Insulin Detemir 8 units 09/01/17 22:00 09/02/17 06:37 Levemir Vial SQ Not Given BID@0700,2200 [facility] Labetalol HCl 400 mg 09/01/17 06:00 09/02/17 06:41 Normodyne - PO 400 mg TID ROSA MARIA Administration Losartan Potassium 100 mg 09/01/17 10:00 09/02/17 09:06 Cozaar - PO 100 mg DAILY ROSA MARIA Administration Nifedipine 30 mg 09/01/17 10:00 09/02/17 09:09 Procardia Xl - PO 30 mg DAILY [facility] Administration Oxycodone HCl 10 mg 09/01/17 05:18 09/02/17 09:06 Oxycontin - PO 10 mg Q8H PRN Administration PAIN LEVEL 7 - 10 Ranitidine HCl 150 mg 09/01/17 10:00 09/02/17 09:11 Zantac - PO 150 mg BID ROSA MARIA Administration ASSESSMENT/PLAN:
[2017-09-02 14:23] VITALS: BP 125/81; PULSE 74
--- NOTE | 2017-09-02 14:34 | PN ---
Teaching Attending Note Name of Resident: Keaton Reddy ATTENDING PHYSICIAN STATEMENT I saw and evaluated the patient. I reviewed the resident's note and discussed the case with the resident. I agree with the resident's findings and plan as documented. SUBJECTIVE:asymptomatic. no CP, SOB< fever, chills, N/V/c/D OBJECTIVE: Last Vital Signs Temp Pulse Resp BP Pulse Ox 98.2 F 74 19 125/81 100 09/02/17 12:30 09/02/17 14:22 09/02/17 14:22 09/02/17 14:22 09/02/17 13:30 General NAD ASSESSMENT AND PLAN: 27yo yo F with PMH ESRD on HD, DM, PE/DVT presented to the ER with epigastric pain 1. Epigastric pain-underwent EGD today showing partially digested food in the stomach. will need further workup for gastroparesis. will f/u [facility] GI as outpatient for gastric emptying study. will advise eat small frequent meals to see if symptoms improve. 2. esophageal candidasis- start fluconazole 200mg x2w 3. ESRD on HD- tolerated yesterday. resume normal schedule. Renal consulted 4. HTN- known to be difficult to control. current BP is very good BP at this time. continue current medications 5. DM-resume home regimen, iss and bgm 6. PE/DVT- took herself off eliquis due to epistaxis. was on it for 6 months. doppler last admission last month showed no DVT. no indication for treatment at this time. will need to confirm with PMD if hypercoagability workup has been completed as pt is unaware 7. DVT ppx- hep sq 8. d/c home
[2017-09-02] MEDS ORDERED: FLUCONAZOLE 100 MG TABLET (UD) PO ONE (15:00)
--- NOTE | 2017-09-02 15:02 | PN ---
Progress Note (short form) - Note Progress Note: Renal follow up for ESRD on HD Pt seen and examined s/p EGD this am no acute complaints s/p dialysis yesterday Vital Signs Temperature 98.2 F 09/02/17 12:30 Pulse Rate 74 09/02/17 14:22 Respiratory Rate 19 09/02/17 14:22 Blood Pressure 125/81 09/02/17 14:22 O2 Sat by Pulse Oximetry (%) 100 09/02/17 13:30 Intake & Output 08/30/17 08/31/17 09/01/17 09/02/17 23:59 23:59 23:59 23:59 Intake Total 1100 50 Balance 1100 50 Weight 65.771 kg 67.676 kg NAD on NC O2 + LE edema CBC, BMP 09/02/17 08:00 09/02/17 08:00 Current Medications Clonidine (Catapres -) 0.3 mg PO TID [facility] Last Admin: 09/02/17 14:23 Dose: 0.3 mg Fluconazole (Diflucan -) 200 mg PO ONCE ONE Stop: 09/02/17 15:01 Fluconazole (Diflucan -) 100 mg PO DAILY [facility] Heparin Sodium (Porcine) (Heparin -) 5,000 unit SQ TID [facility] Last Admin: 09/02/17 14:24 Dose: Not Given Hydralazine HCl (Apresoline -) 100 mg PO TID [facility] Last Admin: 09/02/17 14:23 Dose: 100 mg Sodium Chloride (Normal Saline -) 250 mls @ 3,000 mls/hr IV PRN PRN PRN Reason: Hypotension during Dialysis Stop: 09/02/17 18:01 Insulin Aspart (Novolog Vial Sliding Scale -) 1 vial SQ [facility]; Protocol Last Admin: 09/02/17 11:52 Dose: Not Given Insulin Detemir (Levemir Vial) 8 units SQ BID@0700,2200 [facility] Last Admin: 09/02/17 06:37 Dose: Not Given Labetalol HCl (Normodyne -) 400 mg PO TID [facility] Last Admin: 09/02/17 14:24 Dose: 400 mg Losartan Potassium (Cozaar -) 100 mg PO DAILY [facility] Last Admin: 09/02/17 09:06 Dose: 100 mg Nifedipine (Procardia Xl -) 30 mg PO DAILY [facility] Last Admin: 09/02/17 09:09 Dose: 30 mg Oxycodone HCl (Oxycontin -) 10 mg PO Q8H PRN PRN Reason: PAIN LEVEL 7 - 10 Last Admin: 09/02/17 09:06 Dose: 10 mg Ranitidine HCl (Zantac -) 150 mg PO BID ROSA MARIA Last Admin: 09/02/17 09:11 Dose: 150 mg 27 year old woman with PMHx of ESRD on HD, Insulin dependent DM, Hypertension, Anemia, Hx of PE who presented with Abd pain with N/V. Pt missed last dialysis on wednesday b/c of abd pain. #ESRD on HD #Abd pain/N/V likely due to diabetic gastroparesis #Hypertension #DM #Anemia s/p EGD, findings noted Gi follow up no acute indication for dialysis today, next treatment planned for tomorrow but can be done as outpatient if pt is discharged Nathan Vo DO
--- NOTE | 2017-09-02 19:42 | DS ---
Physical Exam: SUBJECTIVE: Patient seen and examined at bedside. OBJECTIVE: Vital Signs Period Temp Pulse Resp BP Sys/Ames Pulse Ox Last 24 Hr 98.0 F-98.2 F 72-90 12-20 120-162/66-101 99-100 PHYSICAL EXAM Gen: NAD HEENT: NCAT, PERRLA, EOMI Neck: supple, no jvd Cor: S4 gallop, preserved S1 S2, systolic crescendo decrescendo murmur Pulm: CTA b/l Abd: soft, nontender, normal BS Ext: 2+ pedal edema, LUE fistula functional LABS Laboratory Results - last 24 hr 09/01/17 09/02/17 09/02/17 23:32 06:26 08:00 WBC RBC Hgb Hct MCV MCH MCHC RDW Plt Count MPV Neutrophils % Lymphocytes % Monocytes % Eosinophils % Basophils % Nucleated RBC % PT with INR INR Sodium 137 Potassium 3.5 Chloride 101 Carbon Dioxide 28 Anion Gap 8 BUN 25 H Creatinine 4.7 H Creat Clearance w eGFR 11.07 POC Glucometer 327 190 Random Glucose 151 H Calcium 7.6 L Total Bilirubin 0.6 AST 22 ALT 17 Alkaline Phosphatase 812 H Total Protein 7.0 Albumin 2.8 L Lipase 239 09/02/17 09/02/17 09/02/17 08:00 08:00 11:40 WBC 6.7 RBC 3.33 L Hgb 9.0 L Hct 28.2 L MCV 84.6 MCH 27.0 MCHC 32.0 RDW 18.8 H Plt Count 203 MPV 8.7 Neutrophils % 72.3 Lymphocytes % 11.8 Monocytes % 14.5 H Eosinophils % 0.8 Basophils % 0.6 Nucleated RBC % 0 PT with INR 11.90 INR 1.05 Sodium Potassium Chloride Carbon Dioxide Anion Gap BUN Creatinine Creat Clearance w eGFR POC Glucometer 128 Random Glucose Calcium Total Bilirubin AST ALT Alkaline Phosphatase Total Protein Albumin Lipase 09/02/17 16:24 WBC RBC Hgb Hct MCV MCH MCHC RDW Plt Count MPV Neutrophils % Lymphocytes % Monocytes % Eosinophils % Basophils % Nucleated RBC % PT with INR INR Sodium Potassium Chloride Carbon Dioxide Anion Gap BUN Creatinine Creat Clearance w eGFR POC Glucometer 193 Random Glucose Calcium Total Bilirubin AST ALT Alkaline Phosphatase Total Protein Albumin Lipase HOSPITAL COURSE: Date of Admission:09/01/17 Date of Discharge: 09/02/17 27 yr old woman with ESRD on HD, uncontrolled DM presents with acid reflux type symptoms and missed dialysis. Pt presented with symptoms suggestive of GERD. Endoscopy was done. Results were suggestive of gastroparesis. During endoscopy, biopsies were taken to r/o Candidiasis. Pt is being discharged with instructions to follow up with GI for gastric emptying study and biopsy. Pt has a long history of anuric ESRD. was consulted and dialyzed the patient. Pt's HTN was managed with home medications clonidine, labetalol, procardial, cozaar. Pt's DM was treated with BGM and ISS Pt is in no distress and stable for discharge. Minutes to complete discharge: 30 Discharge Summary Reason For Visit: MISSED DIALYSIS Condition: Stable - Instructions Diet, Activity, Other Instructions: You were observed in the hospital for gastroparesis. Try eating small frequent meals. chew your food throughly. You need to make sure to follow up with your GI doctor, Dr. Harsh Newman for a gastric emptying study and results of your esophageal biopsy. You need to follow up with your seasoning mixer, Dr. Vo for dialysis as per your prior schedule. You need to follow up with your primary care doctor. You are being sent home with Diflucan. Take 200mg every day for 2 weeks. If your symptoms get worse or if you develop new symptoms, please return to the ED. Referrals: Harsh Newman MD [Staff Physician] - 1 Week Nathan Vo MD [Staff Physician] - 09/03/17 Disposition: HOME - Home Medications Comprehensive Discharge Medication List: Ambulatory Orders Losartan Potassium [Cozaar -] 100 mg PO DAILY 12/21/16 Labetalol HCl [Normodyne -] 400 mg PO TID #60 tablet 12/26/16 cloNIDine HCL [Catapres -] 0.3 mg PO TID 06/28/17 Oxycodone HCl [Oxycontin] 10 mg PO Q6H PRN 07/12/17 Nifedipine ER [Procardia XL -] 30 mg PO DAILY 07/30/17 Pantoprazole Sodium [Protonix -] 20 mg PO DAILY #7 tablet.ec 08/30/17 Hydralazine HCl 100 mg PO TID 09/01/17 Fluconazole [Diflucan -] 200 mg PO DAILY #14 tablet 09/02/17 Insulin Aspart [Novolog Flexpen] 100 unit SQ ACHS #1 insuln.pen 09/02/17 Insulin Detemir [Levemir Flextouch] 30 unit SQ BID #1 insuln.pen 09/02/17 This patient is new to me today: No Emergency Visit: No Critical Care patient: No - Discharge Referral Referred to [facility] Med P.C.: No
[2017-09-03] MEDS ORDERED: FLUCONAZOLE 100 MG TABLET (UD) PO SCH (10:00)
--- NOTE | 2017-09-06 14:42 | PATH ---
Surgical Pathology Report Patient Name: THEA SINGH [facility]. Rec. #: [id number] /Age/Gender: 1990 (Age: 27) / F Account: [id number] Location: [address] [place] [address] Taken: 09/02/2017 Received: 09/02/2017 Reported: 09/06/2017 Physicians: Apryl Peters M.D. Specimen(s) Received A: BX 2ND PORTION DUODENUM B: BX ANTRUM C: BX ESOPHAGUS Clinical History Dyspepsia, epigastric pain Postoperative diagnosis: Esophagitis full stomach (food) Final Diagnosis A. DUODENUM, SECOND PORTION, BIOPSY: DUODENAL MUCOSA WITHOUT SIGNIFICANT PATHOLOGIC FINDINGS. B. STOMACH, ANTRUM, BIOPSY: GASTRIC ANTRAL MUCOSA WITH MILD CHRONIC GASTRITIS. IMMUNOHISTOCHEMICAL STAIN FOR H. PYLORI IS NEGATIVE. C. ESOPHAGUS, BIOPSY: SQUAMOUS MUCOSA WITH MILD TO MODERATE BASAL CELL HYPERPLASIA, FOCAL ACUTE ESOPHAGITIS AND ASSOCIATED ULCERATION. PAS FUNGAL SPECIAL STAIN IS NEGATIVE. Electronically Signed Heather Ortiz M.D. Gross Description A. Received in formalin, labeled "biopsy second portion duodenum" is a colin, irregular portion of soft tissue measuring 0.6 cm. in greatest dimension. The specimen is submitted in toto in one cassette. B. Received in formalin, labeled "biopsy antrum" is a colin, irregular portion of soft tissue measuring 0.4 cm. in greatest dimension. The specimen is submitted in toto in one cassette. C. Received in formalin, labeled "biopsy esophagus" are 2 colin, irregular portions of soft tissue measuring 0.3 and 0.5 cm. in greatest dimension. The specimens are submitted in toto in one cassette. /09/02/2017 [facility]09/02/2017
== END 2017-09-02 18:15 | disposition home or self-care (01) ==
LOC: JER 21:54 → JERBED 09-01 04:37 → J5S 09-01 09:22
PROVIDERS: ADMIT Internal Medicine; ATTEND Internal Medicine
PROC: 0DB98ZX Excision of Duodenum, Via Natural or Artificial Opening Endoscopic, Diagnostic (ICD-10-PCS; principal; 2017-09-01)
PROC: 0DB68ZX Excision of Stomach, Via Natural or Artificial Opening Endoscopic, Diagnostic (ICD-10-PCS; 2017-09-01)
PROC: 3E033GC Introduction of Other Therapeutic Substance into Peripheral Vein, Percutaneous Approach (ICD-10-PCS; 2017-09-01)
PROC: 3E0337Z Introduction of Electrolytic and Water Balance Substance into Peripheral Vein, Percutaneous Approach (ICD-10-PCS; 2017-09-01)
PROC: 3E013VG Introduction of Insulin into Subcutaneous Tissue, Percutaneous Approach (ICD-10-PCS; 2017-09-01)
DX: Z91.15 Patient's noncompliance with renal dialysis (principal); R07.89 Other chest pain; E87.70 Fluid overload, unspecified; E11.22 Type 2 diabetes mellitus with diabetic chronic kidney disease; E11.65 Type 2 diabetes mellitus with hyperglycemia; I12.0 Hypertensive chronic kidney disease with stage 5 chronic kidney disease or end stage renal disease; B37.81 Candidal esophagitis; N18.6 End stage renal disease; Z99.2 Dependence on renal dialysis; Z79.4 Long term (current) use of insulin; D64.9 Anemia, unspecified; Z86.69 Personal history of other diseases of the nervous system and sense organs; Z91.011 Allergy to milk products; K21.9 Gastro-esophageal reflux disease without esophagitis; G89.29 Other chronic pain; Z86.711 Personal history of pulmonary embolism; Z99.81 Dependence on supplemental oxygen; R10.13 Epigastric pain; F32.9 Major depressive disorder, single episode, unspecified; R74.8 Abnormal levels of other serum enzymes; Z86.14 Personal history of Methicillin resistant Staphylococcus aureus infection; Z86.718 Personal history of other venous thrombosis and embolism
CPT/HCPCS: 36415; 71045-TC-FY; 76705-TC; 80053; 82550; 82962; 83690; 83880; 84080; 84484; 84703; 85025; 85610; 88305-TC; 88312-TC; 88342-TC; 93005; 93010; 96372; 96374; 96375; 99285-25; G0378; J0735; J0885; J1644

== ENCOUNTER 2017-10-23 12:01 | Inpatient (IN) | payer OTHER ==
[2017-10-23] MEDS ORDERED: RAPID SEQUENCE INTUBATION KIT NR ONE (12:07)
--- NOTE | 2017-10-23 12:18 | PDOC ---
Attending Attestation - Resident Resident Name: Barber Medrano - ED Attending Attestation I have performed the following: I have examined & evaluated the patient, The case was reviewed & discussed with the resident, I agree w/resident's findings & plan, Exceptions are as noted - HPI HPI: 10/23/17 13:19 27y F hx of anemia, IDDM, ESRD (MWF, last dialysis yesterday per mom), HTN, seizures, presents s/p cardiac arrest. Per mom, the patient had her dialysis yesterday and was feeling fine. This morning, she was going to [facility] and heard strange sounds from the pts room, she went to check on the patient and found her altered and called EMS. Per EMS, upon arrival, she was confused, had a thready bp, but then went pulseless, was given epi and calcium cl x 1, intubation was attempted, but pt was biting so they aborted. BP was very high after immediately after epi but has trended toward normal upon arrival. BGM by EMS was 'HIgh' UPon arrival the pt was obtunded, occasionally moaning in pain, but spontaneously respiring - saturation was 77% on RA with good wave form,pt was placed on NRB with improvement of O2 to 100%. GENERAL: The patient is obtunded, withdraws to pain HEAD: Normocephalic, atraumatic. EYES: pupils 4mm ENT: moist mucus membranes, some bloody discharge at mouth (traumatic intubation by EMS) NECK: Normal range of motion, supple LUNGS: rales bilaterally HEART: Regular rate and rhythm, normal S1 and S2 without murmur, rub or gallop. ABDOMEN: Soft, nontender, normoactive bowel sounds. No guarding, no rebound. . No CVA tenderness EXTREMITIES: Fistula in the LUE,b/l piting edema in LE NEUROLOGICAL: withdraws to pain on all 4 extermities PSYCH: Unable to assess SKIN: Warm, Dry, ddx: dka, hyperkalemia, metabolic derangement, pna, pulm edema/fluid overload due to the patients AMS and convern for episode of vomiting, not candiate for bipap, pt was intubated by Dr. Sotelo under my direct supervision using RSI (Grabiel , Etomidate) on 2nd attempt. CXR noted for tube that was approx 5cm above trent , tube was repositioned from 21 at lip to 23at lip NGT placed HOB at [address] to r/o bleed labs obtained - sepsis orderset, acetones, vbg pt placed on proprol gtt, fentanyl as needed - Physicial Exam PE: 10/24/17 09:21 see above - Critical Care Time Total Critical Care Time: 110 Critical Care Statement: The care of this patient involved high complexity decision making to prevent further life threatening deterioration of the patient 's condition and/or to evaluate & treat vital organ system(s) failure or risk of failure. - Medical Decision Making 10/23/17 14:25 pts labs reviewed anemia at baseline K 5.1 glucose 1400 vbg ntoed for mixed metabolic/respiratory acidosis +AG, acetone pending suspect dka head ct negative for bleed 10/23/17 16:[address] central line for improved access (pt with 2 good functioning peripheral IVs) attempted in the RIJ - hit resistance mulitple times in the RIJ,unable to advance the guide wire beyond 5-6cm after multiple tries. will defer central line as pt has 2 good functioning lines (For her insulin and sedation gtt) and is otherwise hemodynamically stable. Heart Score/ECG Review - ECG Impressions Comment:: 10/23/17 13:58 Twelve-lead EKG was performed and reviewed by me. There is normal sinus rhythm with a normal rate. rate of 96 QT interval of [address] change suggestive of acute ischemia Procedures - Consent Consent obtained: Unable to obtain - Central Line Central Line Lumen: triple Central Line Position: internal jugular (R) Complications: unable to ob Progress: 10/23/17 17:[address] after multiple attmpts by resident and by myself due to suspected sclersosi/scariring - Intubation Time of Intubation: 12:45 Intubation Method: orotracheal Blade used: Mac Tube Size (Fr): 7.0 Medications: Etomidate, Rocuronium Tube position @ lip (cm): 23 Tube position confirmed by: Direct visualization, CO2 detector, Chest x-ray ( tube advanced to 23 at lip), Breath sounds Breath Sounds after Intubation: equal Intubation Complications: no complications Post Intubation Xray: Yes Progress/Xray Impression: Pt intubated by Dr. Cummins under my direct supervision on 2nd attempt.
[2017-10-23 12:52] LABS: EOS % 0.1 % (0-4.5); HEMATOCRIT 31.4 % (32.4-45.2); HEMOGLOBIN 8.8 GM/dL (10.7-15.3); MONO % 6.5 % (3.8-10.2)
[2017-10-23 12:53] LABS: VENOUS PH 7.14 (7.32-7.42)
[2017-10-23 12:54] LABS: VENOUS PC02 55.1 mmHg (38-52); VENOUS PO2 61.1 mmHg (28-48)
[2017-10-23] MEDS ORDERED: PROPOFOL 1,000,000 MCG/100 ML VIAL ONE ×2 (13:04→14:57)
[2017-10-23 13:11] LABS: ALBUMIN 3.3 g/dl (3.4-5.0); ANION GAP 17 (8-16); BILIRUBIN,TOTAL 0.6 mg/dL (0.2-1.0); BLOOD UREA NITROGEN 39 mg/dL (7-18); CALCIUM 8.5 mg/dL (8.5-10.1); CHLORIDE 94 mmol/L (98-107); CO2 17 mmol/L (21-32); CREATININE 4.6 mg/dL (0.55-1.02); POTASSIUM 5.1 mmol/L (3.5-5.1); SGOT/AST 163 U/L (15-37); SGPT/ALT 43 U/L (12-78); SODIUM 128 mmol/L (136-145); TOT PROT 7.4 g/dl (6.4-8.2)
[2017-10-23 13:13] LABS: INR 1.13 (0.82-1.09); PROTHROMBIN TIME (PATIENT) 12.8 SEC (9.7-13.0)
[2017-10-23 13:16] LABS: ACTIVATED PTT 27.4 SECONDS (25.2-36.5)
[2017-10-23 13:29] LABS: ALK PHOS 1544 U/L (45-117)
[2017-10-23 13:31] LABS: GLUCOSE,RANDOM 1202 mg/dL (74-106)
--- NOTE | 2017-10-23 13:31 | PDOC ---
History of Present Illness - History of Present Illness Initial Comments: 10/23/17 13:25 27 yo F with h/o HTN, anemia, IDDM, ESRD (M/W/F), seizure disorder BIBA s/p cardiac arrest. Patient found unresponsive at home by mother in bathroom after hearing patient making "strange gargling noises" from outside bathroom door. When EMS arrived, pt. had weak pulses, and EMS began chest compressions, administered epinephine x 1, calcium x 1, with ROSC. 1 failed intubation attempt by EMS. Patient hypertensive per EMS. Per patient family, pt. attended dialysis yesterday. PMHx: as noted above SHx: No h/o Etoh, IVDA, tobacco Allergies: NKDA <Barber Medrano - Last Filed: 10/23/17 15:25> <Willy Robert - Last Filed: 10/23/17 15:31> - General Chief Complaint: Cardiac Arrest Stated Complaint: CARDIAC ARREST Time Seen by Provider: 10/23/17 12:17 Past History - Past Medical History Anemia: Yes Asthma: No Cancer: No Cardiac Disorders: No CVA: No COPD: No CHF: No DVT: No Dementia: No Diabetes: Yes (15 yrs Insulin dependent) Dialysis: Yes (M/W/F) Disorders: Yes (esrd) HTN: Yes Hypercholesterolemia: No Kidney Stones: (ESRD, Dialysis Mon, W, F, Left arm Fistula) Liver Disease: No Seizures: Yes (Several yrs ago, no medication) Thyroid Disease: No - Surgical History Abdominal Surgery: No Appendectomy: No Cardiac Surgery: Yes (myxoma removed 2013) Cholecystectomy: Yes Lung Surgery: No Neurologic Surgery: No Orthopedic Surgery: Yes (foot sx x2) - Immunization History Td Vaccination: No TDAP Vaccination: No Immunization Up to Date: Yes - Suicide/Smoking/Psychosocial Hx Smoking Status: No Smoking History: Unknown if ever smoked Have you smoked in the past 12 months: No Number of Cigarettes Smoked Daily: 10 If you are a former smoker, when did you quit?: couple months ago Information on smoking cessation initiated: No Hx Alcohol Use: No Drug/Substance Use Hx: No Substance Use Type: None Hx Substance Use Treatment: No <Barber Medrano - Last Filed: 10/23/17 15:25> <Willy Robert - Last Filed: 10/23/17 15:31> - Past Medical History Allergies/Adverse Reactions: Allergies Allergy/AdvReac Type Severity Reaction Status Date / Time No Known Drug Allergies Allergy Verified 10/23/17 14:33 lactose AdvReac Verified 10/23/17 14:33 Home Medications: Ambulatory Orders Losartan Potassium [Cozaar -] 100 mg PO DAILY 12/21/16 cloNIDine HCL [Catapres -] 0.3 mg PO TID 06/28/17 Oxycodone HCl [Oxycontin] 10 mg PO Q6H PRN 07/12/17 Pantoprazole Sodium [Protonix -] 20 mg PO DAILY #7 tablet.ec 08/30/17 Hydralazine HCl 100 mg PO TID 09/01/17 Collagenase Clostridium Hist. [Santyl -] 1 applic TP DAILY #1 tube 10/01/17 Insulin Detemir [Levemir Flextouch] 17 unit SQ BID #1 insuln.pen 10/01/17 Labetalol HCl [Normodyne -] 500 mg PO TID #225 tablet 10/01/17 Nifedipine ER [Procardia XL -] 90 mg PO DAILY #90 tab.er.24 10/01/17 Miscellaneous Medical Supply [Outpatient Order] 1 each ASDIR #1 misc Insulin Lispro [Humalog Kwikpen U-100] 100 unit SQ ASDIR #10 insuln.pen *Physical Exam - Vital Signs Last Vital Signs Temp Pulse Resp BP Pulse Ox 98.2 F 84 22 170/82 100 10/23/17 12:17 10/23/17 12:17 10/23/17 12:17 10/23/17 12:17 10/23/17 12:17 - Physical Exam Comments: 10/23/17 14:20 GENERAL: Patient obtunded, uncooperative, and responsive to painful stimuli. HEAD: No signs of trauma, normocephalic, atraumatic EYES: PERRLA, sclera anicteric, conjunctiva clear ENT: Auricles normal inspection, nares patent, oropharynx clear without exudates. Moist mucosa NECK: Normal ROM, supple, no lymphadenopathy, JVD, or masses LUNGS: BL rales at LL bases. + agonal breathing. HEART: Regular rate and rhythm, normal S1 and S2, no murmurs, rubs or gallops, peripheral pulses normal and equal bilaterally. ABDOMEN: Soft, nontender, normoactive bowel sounds. No guarding, no rebound. No masses EXTREMITIES : Normal inspection, Normal range of motion, no edema. No clubbing or cyanosis. NEUROLOGICAL: Cranial nerves II through XII grossly intact. SKIN: Warm, Dry, normal turgor, no rashes or lesions noted <Barber Medrano - Last Filed: 10/23/17 15:25> - Vital Signs Last Vital Signs Temp Pulse Resp BP Pulse Ox 98.2 F 89 18 130/70 99 10/23/17 12:17 10/23/17 14:30 10/23/17 13:30 10/23/17 14:30 10/23/17 14:30 <Willy Robert - Last Filed: 10/23/17 15:31> ED Treatment Course - LABORATORY CBC & Chemistry Diagram: 10/23/17 12:31 10/23/17 12:31 - ADDITIONAL ORDERS Additional order review: Laboratory Results 10/23/17 10/23/17 12:36 12:25 VBG pH 7.14 L* D POC VBG pCO2 55.1 H D POC VBG pO2 61.1 H D Mixed VBG HCO3 18.0 L Lactic Acid 3.4 H* - RADIOLOGY Radiology Studies Ordered: Category Date Time Status CXRPORT [CHEST X-RAY PORTABLE*] [RAD] Stat Radiology 10/23/17 13:12 Taken <Barber Medrano - Last Filed: 10/23/17 15:25> - LABORATORY CBC & Chemistry Diagram: 10/23/17 12:31 10/23/17 12:31 - ADDITIONAL ORDERS Additional order review: Laboratory Results 10/23/17 10/23/17 10/23/17 13:57 12:36 12:31 PT with INR INR PTT (Actin FS) VBG pH 7.14 L* D POC VBG pCO2 55.1 H D POC VBG pO2 61.1 H D Mixed VBG HCO3 18.0 L Sodium 128 L Potassium 5.1 Chloride 94 L Carbon Dioxide 17 L Anion Gap 17 H BUN 39 H Creatinine 4.6 H Creat Clearance w eGFR 11.35 Random Glucose 1202 H* Lactic Acid Calcium 8.5 Total Bilirubin 0.6 AST 163 H ALT 43 Alkaline Phosphatase 1544 H D Troponin I < 0.02 Total Protein 7.4 Albumin 3.3 L Acetone, Qual Positive small 1+ H 10/23/17 10/23/17 12:25 12:25 PT with INR 12.80 INR 1.13 PTT (Actin FS) 27.4 VBG pH POC VBG pCO2 POC VBG pO2 Mixed VBG HCO3 Sodium Potassium Chloride Carbon Dioxide Anion Gap BUN Creatinine Creat Clearance w eGFR Random Glucose Lactic Acid 3.4 H* Calcium Total Bilirubin AST ALT Alkaline Phosphatase Troponin I Total Protein Albumin Acetone, Qual 10/23/17 12:31 RBC 3.07 L MCV 102.3 H MCHC 27.9 L RDW 19.0 H MPV 11.4 H D Neutrophils % 86.8 H D Lymphocytes % 2.0 L D Monocytes % 6.5 Eosinophils % 0.1 D Basophils % 4.6 H D - RADIOLOGY Radiology Studies Ordered: Category Date Time Status HEAD CT WITHOUT CONTRAST [CT] Stat CT Scan 10/23/17 12:18 Completed - Medications Given in the ED: ED Medications Discontinued Medications Generic Name Dose Route Start Last Admin Trade Name Jase PRN Reason Stop Dose Admin Etomidate 20 mg 10/23/17 13:43 10/23/17 12:46 Amidate - IVPUSH 10/23/17 13:44 20 mg NOW ONE Administration Fentanyl 100 mcg 10/23/17 13:43 10/23/17 13:46 Sublimaze Injection - IVPUSH 10/23/17 13:44 100 mcg ONCE ONE Administration Insulin Human Regular 10 units 10/23/17 13:53 10/23/17 14:37 Novolin R Vial *For Ivpush Or Iv Drip Only* IVPUSH 10/23/17 13:54 10 units ONCE ONE Administration Propofol 100 mcg 10/23/17 13:43 10/23/17 13:20 Diprivan - IVPUSH 10/23/17 13:44 100 mcg ONCE ONE Administration Rocuronium [place] 50 mg 10/23/17 13:43 10/23/17 12:46 Zemuron - IV 10/23/17 13:44 50 mg ONCE ONE Administration <Willy Robert - Last Filed: 10/23/17 15:31> Medical Decision Making - Critical Care Time Total Critical Care Time (minutes): 90 Critical Care Statement: The care of this patient involved high complexity decision making to prevent further life threatening deterioration of the patient 's condition and/or to evaluate & treat vital organ system(s) failure or risk of failure. - Medical Decision Making 10/23/17 14:22 27 yo F with h/o HTN, anemia, IDDM, ESRD (M/W/F), seizure disorder BIBA s/p cardiac arrest. HR 92, 176/98, 76 % O2 RA, 98.0 Temp ( Rectal). Patient obtunded , BIBA on bag mask ventilation. EMS reported BS ~out of range. Possible DKA vs. HHS. Will assess for electolyte abnml, metabolic and toxic derangements, acid base disturbnace, infxn. ED Course: - Sepsis and DKA protocol initiated - 100% O2 NRB 15 L - Pt. responsive to painful stimuli, demonstrating agonal breathing, not able to follow commands, and continuously thrashing around. - Patient intubated Etomidate 20 mg, Rocuronium 50 mg - Successful Intubation 2nd pass attempt - Propofol 100 mg, Propofol gtt, Fentanyl 50 - CXR with tube 5 cm above trent - Tube repositioned with tip of ET tube 2 cm above trent - BS~1202, Lactic Acid 3.4 - VBG 7.1/55.1/61.1/18.0 - BUN/Cr: 46/3.9, K+ 5.1 - 10 U insulin, 7 U/Hr insulin gtt - Trop: neg - CTH Neg - Patient accepted to ICU 10/23/17 15:25 - Spoke to Dr. Johnson. [facility], [facility] cardiology. - Patient admitted to ICU <Barber Medrano - Last Filed: 10/23/17 15:25> *DC/Admit/Observation/Transfer - Discharge Dispostion Decision to Admit order: Yes <Barber Medrano - Last Filed: 10/23/17 15:25> <Willy Robert - Last Filed: 10/23/17 15:31> Diagnosis at time of Disposition: High anion gap metabolic acidosis, Airway intubation performed without difficulty, ESRD (end stage renal disease) on dialysis DKA (diabetic ketoacidoses) Qualifiers: Diabetes mellitus type: type 1 Diabetes mellitus complication detail: with coma Qualified Code(s): E10.11 - Type 1 diabetes mellitus with ketoacidosis with coma - Discharge Dispostion Condition at time of disposition: Critical
[2017-10-23] MEDS ORDERED: ETOMIDATE 40 MG/20 ML VIAL IVPUSH ONE (13:43)
[2017-10-23] MEDS ORDERED: ROCURONIUM BROMIDE 50 MG/5 ML VIAL IV ONE (13:43)
[2017-10-23] MEDS ORDERED: PROPOFOL 200 MG/20 ML VIAL IVPUSH ONE ×2 (13:43→15:55)
[2017-10-23] MEDS ORDERED: PROPOFOL 1,000,000 MCG/100 ML VIAL IVPUSH SCH (13:45)
[2017-10-23] MEDS ORDERED: INSULIN REGULAR HUMAN 100 UNITS/ML *VIAL IVPUSH ONE (13:53)
[2017-10-23 13:58] LABS: BASO % 4.6 % (0-2.0); MCH 28.6 pg (25.7-33.7); MCHC 27.9 g/dl (32.0-36.0); MEAN CELL VOLUME 102.3 fl (80-96); MEAN PLT VOLUME 11.4 fl (7.5-11.1); NEUT % 86.8 % (42.8-82.8); PLATELET COUNT 140 K/MM3 (134-434); RBC 3.07 M/mm3 (3.60-5.2); WHITE BLOOD COUNT 9.1 K/mm3 (4.0-10.0)
[2017-10-23] MEDS ORDERED: INSULIN REGULAR 100 UNITS in SODIUM CHLORIDE 99 ML IVPB SCH (14:00)
[2017-10-23] MEDS ORDERED: INSULIN REGULAR HUMAN 100 UNITS/ML *VIAL ONE (14:27)
[2017-10-23 15:23] LABS: ARTERIAL BLD GAS O2 SATURATION 96.6 % (90-98.9); ARTERIAL BLOOD GAS BASE EXCESS -10.3 meq/l (-2-2); ARTERIAL BLOOD GAS PCO2 48.8 mmHg (35-45)
[2017-10-23 15:31] LABS: ALLENS TEST POSITIVE
[2017-10-23 15:34] LABS: ARTERIAL BLOOD GAS pH 7.17 (7.35-7.45)
[2017-10-23] MEDS ORDERED: SODIUM CHLORIDE 0.9%/KCL 20 MEQ/1,000 ML INFUS.BAG IV SCH (17:00)
[2017-10-23 19:06] LABS: BASO % 0.9 % (0-2.0); EOS % 0.1 % (0-4.5); HEMATOCRIT 25.3 % (32.4-45.2); HEMOGLOBIN 7.9 GM/dL (10.7-15.3); LYMPH % 9.5 % (8-40); MCH 29.1 pg (25.7-33.7); MCHC 31.1 g/dl (32.0-36.0); MEAN CELL VOLUME 93.6 fl (80-96); MEAN PLT VOLUME 10.3 fl (7.5-11.1); MONO % 13.2 % (3.8-10.2); NEUT % 76.3 % (42.8-82.8); PLATELET COUNT 218 K/MM3 (134-434); RBC 2.71 M/mm3 (3.60-5.2); RDW 18.4 % (11.6-15.6); WHITE BLOOD COUNT 6.2 K/mm3 (4.0-10.0)
[2017-10-23 19:27] LABS: ALBUMIN 2.7 g/dl (3.4-5.0); ANION GAP 12 (8-16); BILIRUBIN,TOTAL 0.6 mg/dL (0.2-1.0); BLOOD UREA NITROGEN 39 mg/dL (7-18); CHLORIDE 106 mmol/L (98-107); CO2 17 mmol/L (21-32); CREATININE 4.1 mg/dL (0.55-1.02); MAGNESIUM 1.7 mg/dL (1.8-2.4); PHOSPHOROUS 4.1 mg/dL (2.5-4.9); SGOT/AST 380 U/L (15-37); SGPT/ALT 71 U/L (12-78); SODIUM 135 mmol/L (136-145); TOT PROT 5.9 g/dl (6.4-8.2)
[2017-10-23 19:40] LABS: ALK PHOS 1257 U/L (45-117)
[2017-10-23 19:42] LABS: GLUCOSE,RANDOM 709 mg/dL (74-106); POTASSIUM 6.3 mmol/L (3.5-5.1)
[2017-10-23 19:43] LABS: CALCIUM 6.4 mg/dL (8.5-10.1)
[2017-10-23] MEDS ORDERED: SODIUM CHLORIDE 1,000 ML IV SCH ×2 (19:45→20:01)
[2017-10-23] MEDS ORDERED: CALCIUM CHLORIDE 1 GM/10 ML *DISP.SYRIN IVPB ONE (20:18)
[2017-10-23] MEDS ORDERED: MAGNESIUM 1GM/D5W 100ML - 100 ML IVPB IVPB ONE (20:18)
--- NOTE | 2017-10-23 20:33 | CONSULT ---
Consultation: CONSULT REQUEST: We have been asked to medically evaluate this patient for Critical Care. HISTORY OF PRESENT ILLNESS: 27 y/o F w/PMH of ESRD on HD (MWF), HTN, IDDM, seizure d/o, PE presents to the ER after being found disoriented and subsequently pulseless by her mother this AM. Pt was in her usual state of health according to mother the day prior. Pt had watched a movie with mother at night yesterday night and went to bed afterwards. Around 10:30 in the morning pt's mother heard a noise from the pt's room and went to check on her and found the pt with gurgling and was disoriented. Mother then called EMS and approximately 2 min before EMS arrived pt went pulseless according to mother. EMS promptly started CPR and after epi x1 and calcium x1 ROSC was achieved but pt was unable to be intubated and was bagged on the way to the ER. Pt was then intubated in the ER. According to mother pt was feeling well overall, had dialysis yesterday, does not drink alcohol or drugs, was not sick recently, had no complaints recently, and had no recent travel hx. Pt is on oxycodone at home and mother states the pt takes medication as prescribed. PMH:ESRD on HD (MWF), HTN, IDDM, seizure d/o, PE PSHx: cholecystectomy, myomectomy, foot surgery x 2, cardiac myxoma SH: Mother denies any alcohol, drug, or tobacco use FH: Mother: HTN Allergies: NKDA. Food: Lactose allergy REVIEW OF SYSTEMS: Unable to obtain as pt is sedated and intubated. PHYSICAL EXAMINATION Vital Signs - 24 hr 10/23/17 10/23/17 10/23/17 12:01 12:17 12:46 Temperature 98.0 F 98.2 F Pulse Rate 92 H Pulse Rate [ 84 98 H Apical] Respiratory 16 22 13 Rate Blood Pressure 176/98 Blood Pressure 170/82 159/102 [Right Arm] O2 Sat by Pulse 100 100 100 Oximetry (%) 10/23/17 10/23/17 10/23/17 12:50 13:01 13:02 Temperature Pulse Rate Pulse Rate [ 101 H Apical] Respiratory 16 20 18 Rate Blood Pressure Blood Pressure 223/124 [Right Arm] O2 Sat by Pulse 100 100 Oximetry (%) 10/23/17 10/23/17 10/23/17 13:20 13:30 14:30 Temperature Pulse Rate Pulse Rate [ 92 H 89 89 Apical] Respiratory 16 18 Rate Blood Pressure Blood Pressure 176/108 164/109 130/70 [Right Arm] O2 Sat by Pulse 100 100 99 Oximetry (%) 10/23/17 10/23/17 10/23/17 15:30 16:30 17:30 Temperature Pulse Rate Pulse Rate [ 87 87 87 Apical] Respiratory 15 14 15 Rate Blood Pressure Blood Pressure 162/96 152/89 149/90 [Right Arm] O2 Sat by Pulse 100 100 100 Oximetry (%) 10/23/17 10/23/17 18:06 18:13 Temperature 98 F Pulse Rate 89 Pulse Rate [ Apical] Respiratory 21 16 Rate Blood Pressure 162/104 Blood Pressure [Right Arm] O2 Sat by Pulse Oximetry (%) GENERAL: Sedated and intubated. When sedation was turned off pt becomes agitated and thrashing around bed. EYES: Dilated pupils, extremely sluggish EARS, NOSE, THROAT: No gag reflex while on sedation. LUNGS: CTA b/l, auscultated anteriorly HEART: Regular rate and rhythm, normal S1 and S2 without murmur. ABDOMEN: Soft, nontender, not distended, normoactive bowel sounds. UPPER EXTREMITIES: warm, well-perfused. No peripheral edema. LOWER EXTREMITIES: 3+ pitting edema b/l. warm, well-perfused. No erythema or swelling noted. NEUROLOGICAL: Sedated PSYCHIATRIC: Sedated SKIN: Warm, dry Laboratory Results - last 24 hr 10/23/17 10/23/17 10/23/17 12:25 12:25 12:31 WBC 9.1 RBC 3.07 L Hgb 8.8 L Hct 31.4 L D MCV 102.3 H MCH 28.6 MCHC 27.9 L RDW 19.0 H Plt Count 140 D MPV 11.4 H D Absolute Neuts (auto) 7.9 Neutrophils % 86.8 H D Lymphocytes % 2.0 L D Monocytes % 6.5 Eosinophils % 0.1 D Basophils % 4.6 H D Nucleated RBC % 0 PT with INR 12.80 INR 1.13 PTT (Actin FS) 27.4 Puncture Site ABG pH ABG pCO2 at Pt Temp ABG pO2 at Pt Temp ABG HCO3 ABG O2 Sat (Measured) ABG O2 Content ABG Base Excess Izaiah Test VBG pH POC VBG pCO2 POC VBG pO2 Mixed VBG HCO3 Oxygen Flow Rate Vent Rate PEEP Sodium Potassium Chloride Carbon Dioxide Anion Gap BUN Creatinine Creat Clearance w eGFR Random Glucose Lactic Acid 3.4 H* Calcium Total Bilirubin AST ALT Alkaline Phosphatase Troponin I Total Protein Albumin Alcohol, Quantitative Acetone, Qual 10/23/17 10/23/17 10/23/17 12:31 12:36 13:57 WBC RBC Hgb Hct MCV MCH MCHC RDW Plt Count MPV Absolute Neuts (auto) Neutrophils % Lymphocytes % Monocytes % Eosinophils % Basophils % Nucleated RBC % PT with INR INR PTT (Actin FS) Puncture Site ABG pH ABG pCO2 at Pt Temp ABG pO2 at Pt Temp ABG HCO3 ABG O2 Sat (Measured) ABG O2 Content ABG Base Excess Izaiah Test VBG pH 7.14 L* D POC VBG pCO2 55.1 H D POC VBG pO2 61.1 H D Mixed VBG HCO3 18.0 L Oxygen Flow Rate Vent Rate PEEP Sodium 128 L Potassium 5.1 Chloride 94 L Carbon Dioxide 17 L Anion Gap 17 H BUN 39 H Creatinine 4.6 H Creat Clearance w eGFR 11.35 Random Glucose 1202 H* Lactic Acid Calcium 8.5 Total Bilirubin 0.6 AST 163 H ALT 43 Alkaline Phosphatase 1544 H D Troponin I < 0.02 Total Protein 7.4 Albumin 3.3 L Alcohol, Quantitative Acetone, Qual Positive small 1+ H 10/23/17 10/23/17 10/23/17 15:10 15:25 16:40 WBC 6.2 RBC 2.71 L Hgb 7.9 L Hct 25.3 L D MCV 93.6 D MCH 29.1 MCHC 31.1 L RDW 18.4 H Plt Count 218 D MPV 10.3 Absolute Neuts (auto) 4.7 Neutrophils % 76.3 Lymphocytes % 9.5 D Monocytes % 13.2 H D Eosinophils % 0.1 Basophils % 0.9 Nucleated RBC % 0 PT with INR INR PTT (Actin FS) Puncture Site No Result Required. ABG pH 7.17 L* ABG pCO2 at Pt Temp 48.8 H D ABG pO2 at Pt Temp 101.0 H ABG HCO3 17.3 L ABG O2 Sat (Measured) 96.6 ABG O2 Content 11.6 L ABG Base Excess -10.3 L* Izaiah Test Positive VBG pH POC VBG pCO2 POC VBG pO2 Mixed VBG HCO3 Oxygen Flow Rate 40 Vent Rate 16 PEEP 5.0 Sodium Potassium Chloride Carbon Dioxide Anion Gap BUN Creatinine Creat Clearance w eGFR Random Glucose Lactic Acid 2.6 H* Calcium Total Bilirubin AST ALT Alkaline Phosphatase Troponin I Total Protein Albumin Alcohol, Quantitative Acetone, Qual 10/23/17 10/23/17 16:40 17:50 WBC RBC Hgb Hct MCV MCH MCHC RDW Plt Count MPV Absolute Neuts (auto) Neutrophils % Lymphocytes % Monocytes % Eosinophils % Basophils % Nucleated RBC % PT with INR INR PTT (Actin FS) Puncture Site ABG pH ABG pCO2 at Pt Temp ABG pO2 at Pt Temp ABG HCO3 ABG O2 Sat (Measured) ABG O2 Content ABG Base Excess Izaiah Test VBG pH POC VBG pCO2 POC VBG pO2 Mixed VBG HCO3 Oxygen Flow Rate Vent Rate PEEP Sodium Potassium Chloride Carbon Dioxide Anion Gap BUN Creatinine Creat Clearance w eGFR Random Glucose Lactic Acid 4.8 H* Calcium Total Bilirubin AST ALT Alkaline Phosphatase Troponin I Total Protein Albumin Alcohol, Quantitative < 5.0 Acetone, Qual Imaging: CXR: Pulm congestion. ET tube 1 cm above trent. OG tube in place Head CT: No acute pathology EKG: NSR @ 95 bpm. QTc [address] segment elevation or depressions noted. No S wave in I noted. Lead III with wander and unable to assess for TWI but does not appear to have significant Q wave. Micro: Blood culture 10/23/17 Pending Active Medications Generic Name Dose Route Start Last Admin Trade Name Freq PRN Reason Stop Dose Admin Propofol 1,000,000 mcg in 100 mls @ 2.381 mls/hr 10/23/17 13:45 10/23/17 19: 06 Diprivan - IVPUSH 40 mcg/kg/min TITR ROSA MARIA 19.051 mls/hr Titration Protocol 5 MCG/KG/MIN Insulin Human Regular 100 100 mls @ 7.93 mls/hr 10/23/17 14:00 10/23/17 14:37 units/ Sodium Chloride IVPB 0.1 units/kg/hr TITR ROSA MARIA 7.93 mls/hr Administration Protocol 0.1 UNITS/KG/HR Potassium Chloride/Sodium Chloride 20 meq in 1,000 mls @ 125 mls/hr 10/23/17 17:00 10/23/17 17:30 Ns+20 Meq Kcl - IV 125 mls/hr ASDIR ROSA MARIA Administration ASSESSMENT/PLAN: 27 y/o F w/PMH of ESRD on HD (MWF), HTN, IDDM, seizure d/o, PE presents to the ER after being found disoriented and subsequently having cardiac arrest and achieving ROSC on the field. Intubated in ER 10/23/17. -Cardiac Arrest -Structural heart defect vs possible drug use vs arrhythmia vs Acidosis vs PE -Head CT negative -EKG w/o S1Q3T3 clearly present -Will get echo, duplex U/S b/l LE -Unable to get Utox as pt does not produce urine -Cardiology consulted -Alcohol level negative -Trops neg x2 -sedated and intubated. On propofol. -f/u TSH, BCx -Vanc 1g, Zosyn 2.25 g once -ID consult -CXR and ABG in AM -Hyperglycemia secondary to HHS vs DKA -pH acidotic and anion gap elevated pointing to DKA but acidosis can be elevated s/p cardiac arrest -Blood acetone small, bicarb 17, Serum Osm: 333 (>320) pointing towards HHS -on insulin drip. Given 10 units insulin IVP in ER -BGMs q1h -BMPs q2h -Endocrine consult -July 2017 A1C was 13.2% -Lactic acidosis -s/p cardiac arrest and DKA vs HHS -will trend -Anemia -7.9 Hgb on last lab, baseline approx 9 -will continue to monitor -Transfuse if Hgb <7 with goal Hgb >7 -ESRD -on HD -dialyzed yesterday according to mother -Nephrology consult -For dialysis tonight -Elevated AST and ALP -Chronic elevation -Will get RUQ U/S -HTN -Will monitor for now -DVT ppx -Will place on SCDs -Can change to heparin 5000 units sq q8h if H/H remain stable -FEN -NS @ 75 ml/hr -Hypocalcemia (corrected Ca 7.44), HypoMg - will replete w/Ca gluconate 10% 1g and MgSulfate 1g IV. Hyperkalemia, on insulin drip, will hold K+ infusion with NS -NPO -Dispo: Admit to ICU Visit type - Emergency Visit Emergency Visit: Yes ED Registration Date: 10/23/17 Care time: The patient presented to the Emergency Department on the above date and was hospitalized for further evaluation of their emergent condition. - New Patient This patient is new to me today: Yes Date on this admission: 10/23/17 - Critical Care Critical Care patient: Yes Total Critical Care Time (in minutes): 65 Critical Care Statement: The care of this patient involved high complexity decision making to prevent further life threatening deterioration of the patient 's condition and/or to evaluate & treat vital organ system(s) failure or risk of failure.
[2017-10-23] MEDS ORDERED: CALCIUM GLUCONATE 10% - 1,000 MG/10 ML VIAL IVPB ONE (21:15)
--- NOTE | 2017-10-23 21:16 | CONSULT ---
Consult Consult Specialty:: endocrine Referred by:: dr.[email or web address] youngblood Reason for Consultation:: dka - History of Present Illness Chief Complaint: intubated sedated History of Present Illness: 27y F hx of anemia, IDDM, ESRD (MWF, last dialysis yesterday per mom), HTN, seizures, presents s/p cardiac arrest. Per mom,sp her dialysis yesterday and was feeling fine. This morning, she was going to [facility] and heard strange sounds from the pts room, she went to check on the patient and found her altered and called EMS. 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, PE, DVT) Pulmonary: Yes: Pulmonary Embolus Renal/: Yes: Renal Failure, Hemodialysis ...LMP: 05/13/17 Infectious Disease: Yes: MRSA (history of bacteremia, recent mrsa foot abscess) Endocrine: Yes: Diabetes Mellitus (type 1 on insulin pump) Additional Medical History: DVT, PE on coumadin - Past Surgical History Past Surgical History: Yes: AV Fistula/Graft (Right arm) - Alcohol/Substance Use Hx Alcohol Use: No History of Substance Use: reports: None - Smoking History Smoking history: Unknown if ever smoked Have you smoked in the past 12 months: No Aproximately how many cigarettes per day: 10 If you are a former smoker, when did you quit?: couple months ago - Social History Usual Living Arrangement: With Parent ADL: Independent Occupation: unemployed History of Recent Travel: No Home Medications - Allergies Allergies/Adverse Reactions: Allergies Allergy/AdvReac Type Severity Reaction Status Date / Time No Known Drug Allergies Allergy Verified 10/23/17 14:33 lactose AdvReac Verified 10/23/17 14:33 - Home Medications Home Medications: Ambulatory Orders Losartan Potassium [Cozaar -] 100 mg PO DAILY 12/21/16 cloNIDine HCL [Catapres -] 0.3 mg PO TID 06/28/17 Oxycodone HCl [Oxycontin] 10 mg PO Q6H PRN 07/12/17 Pantoprazole Sodium [Protonix -] 20 mg PO DAILY #7 tablet.ec 08/30/17 Hydralazine HCl 100 mg PO TID 09/01/17 Collagenase Clostridium Hist. [Santyl -] 1 applic TP DAILY #1 tube 10/01/17 Insulin Detemir [Levemir Flextouch] 17 unit SQ BID #1 insuln.pen 10/01/17 Labetalol HCl [Normodyne -] 500 mg PO TID #225 tablet 10/01/17 Nifedipine ER [Procardia XL -] 90 mg PO DAILY #90 tab.er.24 10/01/17 Miscellaneous Medical Supply [Outpatient Order] 1 each ASDIR #1 misc Insulin Lispro [Humalog Kwikpen U-100] 100 unit SQ ASDIR #10 insuln.pen Unobtainable Med List. 10/23/17 Family Disease History - Family Disease History Family Disease History: Diabetes: Grandparent (HTN), Heart Disease: Grandparent , Other: Father (unknown), Mother (HTN) Physical Exam Vital Signs: Vital Signs Temperature 98 F 10/23/17 18:06 Pulse Rate 89 10/23/17 18:06 Respiratory Rate 16 10/23/17 18:13 Blood Pressure 162/104 10/23/17 18:06 O2 Sat by Pulse Oximetry (%) 100 10/23/17 17:30 Constitutional: Yes: No Distress Eyes: Yes: WNL HENT: Yes: Normocephalic Neck: Yes: Trachea Midline Cardiovascular: Yes: Tachycardia, S2 Respiratory: Yes: CTA Bilaterally Gastrointestinal: Yes: Normal Bowel Sounds Renal/: Yes: Anuria Musculoskeletal: Yes: Joint Swelling Extremities: Yes: Cool Neurological: Yes: Unresponsive (sedated) Labs: CBC, BMP 10/23/17 16:40 10/23/17 16:40 Problem List - Problems (1) Airway intubation performed without difficulty Code(s): Z78.9 - OTHER SPECIFIED HEALTH STATUS (2) DKA (diabetic ketoacidoses) Code(s): E13.10 - OTH DIABETES MELLITUS WITH KETOACIDOSIS WITHOUT COMA Qualifiers: Diabetes mellitus type: type 1 Diabetes mellitus complication detail: with coma Qualified Code(s): E10.11 - Type 1 diabetes mellitus with ketoacidosis with coma (3) High anion gap metabolic acidosis Code(s): E87.2 - ACIDOSIS (4) Anemia Code(s): D64.9 - ANEMIA, UNSPECIFIED Qualifiers: Folate deficiency anemia type: dietary (5) Chronic GERD Code(s): K21.9 - GASTRO-ESOPHAGEAL REFLUX DISEASE WITHOUT ESOPHAGITIS (6) Diabetes mellitus, insulin dependent (IDDM), uncontrolled Code(s): E10.65 - TYPE 1 DIABETES MELLITUS WITH HYPERGLYCEMIA (7) Diabetic foot ulcer Code(s): E11.621 - TYPE 2 DIABETES MELLITUS WITH FOOT ULCER; L97.509 - NON- PRESSURE CHRONIC ULCER OTH PRT UNSP FOOT W UNSP SEVERITY Assessment/Plan Current Active Problems Airway intubation performed without difficulty (Acute) DKA (diabetic ketoacidoses) (Acute) High anion gap metabolic acidosis (Acute) ESRD (end stage renal disease) on dialysis (Chronic) Abnormal Lab Results 10/23/17 10/23/17 10/23/17 12:25 12:31 12:31 RBC 3.07 L Hgb 8.8 L Hct 31.4 L D MCV 102.3 H MCHC 27.9 L RDW 19.0 H MPV 11.4 H D Neutrophils % 86.8 H D Lymphocytes % 2.0 L D Monocytes % Basophils % 4.6 H D ABG pH ABG pCO2 at Pt Temp ABG pO2 at Pt Temp ABG HCO3 ABG O2 Content ABG Base Excess VBG pH POC VBG pCO2 POC VBG pO2 Mixed VBG HCO3 Sodium 128 L Potassium Chloride 94 L Carbon Dioxide 17 L Anion Gap 17 H BUN 39 H Creatinine 4.6 H Random Glucose 1202 H* Lactic Acid 3.4 H* Calcium Magnesium AST 163 H Alkaline Phosphatase 1544 H D Total Protein Albumin 3.3 L Acetone, Qual 10/23/17 10/23/17 10/23/17 12:36 13:57 15:10 RBC Hgb Hct MCV MCHC RDW MPV Neutrophils % Lymphocytes % Monocytes % Basophils % ABG pH 7.17 L* ABG pCO2 at Pt Temp 48.8 H D ABG pO2 at Pt Temp 101.0 H ABG HCO3 17.3 L ABG O2 Content 11.6 L ABG Base Excess -10.3 L* VBG pH 7.14 L* D POC VBG pCO2 55.1 H D POC VBG pO2 61.1 H D Mixed VBG HCO3 18.0 L Sodium Potassium Chloride Carbon Dioxide Anion Gap BUN Creatinine Random Glucose Lactic Acid Calcium Magnesium AST Alkaline Phosphatase Total Protein Albumin Acetone, Qual Positive small 1+ H 10/23/17 10/23/17 10/23/17 15:25 16:40 16:40 RBC 2.71 L Hgb 7.9 L Hct 25.3 L D MCV MCHC 31.1 L RDW 18.4 H MPV Neutrophils % Lymphocytes % Monocytes % 13.2 H D Basophils % ABG pH ABG pCO2 at Pt Temp ABG pO2 at Pt Temp ABG HCO3 ABG O2 Content ABG Base Excess VBG pH POC VBG pCO2 POC VBG pO2 Mixed VBG HCO3 Sodium 135 L Potassium 6.3 H* Chloride Carbon Dioxide 17 L Anion Gap BUN 39 H Creatinine 4.1 H Random Glucose 709 H* Lactic Acid 2.6 H* Calcium 6.4 L* Magnesium 1.7 L AST 380 H Alkaline Phosphatase 1257 H D Total Protein 5.9 L Albumin 2.7 L Acetone, Qual 10/23/17 16:40 RBC Hgb Hct MCV MCHC RDW MPV Neutrophils % Lymphocytes % Monocytes % Basophils % ABG pH ABG pCO2 at Pt Temp ABG pO2 at Pt Temp ABG HCO3 ABG O2 Content ABG Base Excess VBG pH POC VBG pCO2 POC VBG pO2 Mixed VBG HCO3 Sodium Potassium Chloride Carbon Dioxide Anion Gap BUN Creatinine Random Glucose Lactic Acid 4.8 H* Calcium Magnesium AST Alkaline Phosphatase Total Protein Albumin Acetone, Qual Laboratory Results - last 24 hr 10/23/17 10/23/17 10/23/17 12:25 12:25 12:31 WBC 9.1 RBC 3.07 L Hgb 8.8 L Hct 31.4 L D MCV 102.3 H MCH 28.6 MCHC 27.9 L RDW 19.0 H Plt Count 140 D MPV 11.4 H D Absolute Neuts (auto) 7.9 Neutrophils % 86.8 H D Lymphocytes % 2.0 L D Monocytes % 6.5 Eosinophils % 0.1 D Basophils % 4.6 H D Nucleated RBC % 0 PT with INR 12.80 INR 1.13 PTT (Actin FS) 27.4 Puncture Site ABG pH ABG pCO2 at Pt Temp ABG pO2 at Pt Temp ABG HCO3 ABG O2 Sat (Measured) ABG O2 Content ABG Base Excess Izaiah Test VBG pH POC VBG pCO2 POC VBG pO2 Mixed VBG HCO3 Oxygen Flow Rate Vent Rate PEEP Sodium Potassium Chloride Carbon Dioxide Anion Gap BUN Creatinine Creat Clearance w eGFR Random Glucose Lactic Acid 3.4 H* Calcium Phosphorus Magnesium Total Bilirubin AST ALT Alkaline Phosphatase Troponin I Total Protein Albumin Alcohol, Quantitative Acetone, Qual 10/23/17 10/23/17 10/23/17 12:31 12:36 13:57 WBC RBC Hgb Hct MCV MCH MCHC RDW Plt Count MPV Absolute Neuts (auto) Neutrophils % Lymphocytes % Monocytes % Eosinophils % Basophils % Nucleated RBC % PT with INR INR PTT (Actin FS) Puncture Site ABG pH ABG pCO2 at Pt Temp ABG pO2 at Pt Temp ABG HCO3 ABG O2 Sat (Measured) ABG O2 Content ABG Base Excess Izaiah Test VBG pH 7.14 L* D POC VBG pCO2 55.1 H D POC VBG pO2 61.1 H D Mixed VBG HCO3 18.0 L Oxygen Flow Rate Vent Rate PEEP Sodium 128 L Potassium 5.1 Chloride 94 L Carbon Dioxide 17 L Anion Gap 17 H BUN 39 H Creatinine 4.6 H Creat Clearance w eGFR 11.35 Random Glucose 1202 H* Lactic Acid Calcium 8.5 Phosphorus Magnesium Total Bilirubin 0.6 AST 163 H ALT 43 Alkaline Phosphatase 1544 H D Troponin I < 0.02 Total Protein 7.4 Albumin 3.3 L Alcohol, Quantitative Acetone, Qual Positive small 1+ H 10/23/17 10/23/17 10/23/17 15:10 15:25 16:40 WBC 6.2 RBC 2.71 L Hgb 7.9 L Hct 25.3 L D MCV 93.6 D MCH 29.1 MCHC 31.1 L RDW 18.4 H Plt Count 218 D MPV 10.3 Absolute Neuts (auto) 4.7 Neutrophils % 76.3 Lymphocytes % 9.5 D Monocytes % 13.2 H D Eosinophils % 0.1 Basophils % 0.9 Nucleated RBC % 0 PT with INR INR PTT (Actin FS) Puncture Site No Result Required. ABG pH 7.17 L* ABG pCO2 at Pt Temp 48.8 H D ABG pO2 at Pt Temp 101.0 H ABG HCO3 17.3 L ABG O2 Sat (Measured) 96.6 ABG O2 Content 11.6 L ABG Base Excess -10.3 L* Izaiah Test Positive VBG pH POC VBG pCO2 POC VBG pO2 Mixed VBG HCO3 Oxygen Flow Rate 40 Vent Rate 16 PEEP 5.0 Sodium Potassium Chloride Carbon Dioxide Anion Gap BUN Creatinine Creat Clearance w eGFR Random Glucose Lactic Acid 2.6 H* Calcium Phosphorus Magnesium Total Bilirubin AST ALT Alkaline Phosphatase Troponin I Total Protein Albumin Alcohol, Quantitative Acetone, Qual 10/23/17 10/23/17 10/23/17 16:40 16:40 17:50 WBC RBC Hgb Hct MCV MCH MCHC RDW Plt Count MPV Absolute Neuts (auto) Neutrophils % Lymphocytes % Monocytes % Eosinophils % Basophils % Nucleated RBC % PT with INR INR PTT (Actin FS) Puncture Site ABG pH ABG pCO2 at Pt Temp ABG pO2 at Pt Temp ABG HCO3 ABG O2 Sat (Measured) ABG O2 Content ABG Base Excess Izaiah Test VBG pH POC VBG pCO2 POC VBG pO2 Mixed VBG HCO3 Oxygen Flow Rate Vent Rate PEEP Sodium 135 L Potassium 6.3 H* Chloride 106 Carbon Dioxide 17 L Anion Gap 12 BUN 39 H Creatinine 4.1 H Creat Clearance w eGFR 12.96 Random Glucose 709 H* Lactic Acid 4.8 H* Calcium 6.4 L* Phosphorus 4.1 Magnesium 1.7 L Total Bilirubin 0.6 AST 380 H ALT 71 Alkaline Phosphatase 1257 H D Troponin I 0.03 Total Protein 5.9 L Albumin 2.7 L Alcohol, Quantitative < 5.0 Acetone, Qual plan: iv fluids per Nephrology hd as required to correct K corrected AG insulin drip q1hrs supportive care iv antibiotics repeat bmp
[2017-10-23] MEDS ORDERED: SODIUM CHLORIDE 250 ML IV PRN (21:21)
[2017-10-23] MEDS ORDERED: ALBUMIN HUMAN 25% 12.5 GM/50 ML VIAL IVPB SCH (21:30)
[2017-10-23] MEDS ORDERED: MAGNESIUM SULFATE 1 GM in SODIUM CHLORIDE 100 ML IVPB ONE (21:45)
[2017-10-23 21:51] LABS: BASO % 0.6 % (0-2.0); EOS % 0.3 % (0-4.5); HEMATOCRIT 24.2 % (32.4-45.2); HEMOGLOBIN 7.6 GM/dL (10.7-15.3); LYMPH % 14.9 % (8-40); MCH 28.4 pg (25.7-33.7); MCHC 31.3 g/dl (32.0-36.0); MEAN CELL VOLUME 90.8 fl (80-96); MEAN PLT VOLUME 9.9 fl (7.5-11.1); NEUT % 67.2 % (42.8-82.8); PLATELET COUNT 214 K/MM3 (134-434); RBC 2.67 M/mm3 (3.60-5.2); RDW 17.1 % (11.6-15.6); WHITE BLOOD COUNT 6.3 K/mm3 (4.0-10.0)
[2017-10-23 22:12] LABS: ALBUMIN 2.9 g/dl (3.4-5.0); ANION GAP 16 (8-16); BILIRUBIN,TOTAL 0.5 mg/dL (0.2-1.0); BLOOD UREA NITROGEN 41 mg/dL (7-18); CHLORIDE 104 mmol/L (98-107); CO2 19 mmol/L (21-32); CREATININE 4.2 mg/dL (0.55-1.02); MAGNESIUM 1.8 mg/dL (1.8-2.4); PHOSPHOROUS 4.3 mg/dL (2.5-4.9); POTASSIUM 3.1 mmol/L (3.5-5.1); SGOT/AST 302 U/L (15-37); SGPT/ALT 61 U/L (12-78); SODIUM 139 mmol/L (136-145); TOT PROT 6.2 g/dl (6.4-8.2)
[2017-10-23 22:45] LABS: CALCIUM 15.5 mg/dL (8.5-10.1); GLUCOSE,RANDOM 376 mg/dL (74-106)
[2017-10-23 22:53] LABS: ALK PHOS 1332 U/L (45-117)
[2017-10-24] MEDS: FENTANYL INJECTION 500 MCG in DEXTROSE 5%-WATER - 90 ML IVPB SCH ×2 (01:00→09:00)
[2017-10-24] MEDS ORDERED: FENTANYL INJECTION 500 MCG in DEXTROSE 5%-WATER - 90 ML IVPB SCH (01:00)
[2017-10-24] MEDS ORDERED: fentaNYL CITRATE 250 MCG/5 ML VIAL ONE (01:04)
[2017-10-24 02:44] LABS: HEMOGLOBIN 9.2 GM/dL (10.7-15.3); MCH 28.4 pg (25.7-33.7); MCHC 32.8 g/dl (32.0-36.0); MEAN CELL VOLUME 86.5 fl (80-96); MEAN PLT VOLUME 9.6 fl (7.5-11.1); PLATELET COUNT 257 K/MM3 (134-434); RBC 3.23 M/mm3 (3.60-5.2); RDW 17.2 % (11.6-15.6); WHITE BLOOD COUNT 7.1 K/mm3 (4.0-10.0)
[2017-10-24] MEDS ORDERED: HEMOQUE TEST 1 EACH EACH ONE (02:59)
[2017-10-24 03:07] LABS: ALBUMIN 3.5 g/dl (3.4-5.0); ANION GAP 8 (8-16); BLOOD UREA NITROGEN 15 mg/dL (7-18); CALCIUM 9.4 mg/dL (8.5-10.1); CHLORIDE 99 mmol/L (98-107); CO2 31 mmol/L (21-32); GLUCOSE,RANDOM 124 mg/dL (74-106); MAGNESIUM 1.9 mg/dL (1.8-2.4); PHOSPHOROUS 2.1 mg/dL (2.5-4.9); POTASSIUM 3.4 mmol/L (3.5-5.1); SGOT/AST 279 U/L (15-37); SGPT/ALT 57 U/L (12-78); SODIUM 138 mmol/L (136-145)
[2017-10-24 03:20] LABS: BILIRUBIN,TOTAL 0.6 mg/dL (0.2-1.0); TOT PROT 7.8 g/dl (6.4-8.2)
[2017-10-24 03:29] LABS: ARTERIAL BLOOD GAS BASE EXCESS 4.6 meq/l (-2-2); ARTERIAL BLOOD GAS PCO2 46.9 mmHg (35-45); ARTERIAL BLOOD GAS pH 7.41 (7.35-7.45)
[2017-10-24 03:30] LABS: ALLENS TEST POSITIVE
[2017-10-24 03:30] LABS: ALK PHOS 1597 U/L (45-117)
[2017-10-24 03:31] LABS: ARTERIAL BLOOD GAS PO2 52.6 mmHg (80-100)
[2017-10-24] MEDS ORDERED: PIPERACILLIN/TAZOB 2.25 GM 2.25 GM in DEXTROSE 5%-WATER - 50 ML IVPB ONE (03:36)
[2017-10-24] MEDS ORDERED: VANCOMYCIN 1 GM PREMIX - 1 GM/200 ML BAG IVPB ONE (03:48)
[2017-10-24] MEDS ORDERED: DEXTROSE 5%-WATER - 50 ML IVPB ONE (03:50)
[2017-10-24] MEDS ORDERED: PIPERACILLIN/TAZOBACTAM 2.25 GM VIAL IVPB ONE (03:50)
[2017-10-24] MEDS ORDERED: LABETALOL HCL 5 MG/1 ML (100MG/20 ML VIAL) IVPUSH ONE (04:07)
[2017-10-24 06:03] LABS: BASO % 0.7 % (0-2.0); HEMATOCRIT 25.8 % (32.4-45.2); HEMOGLOBIN 8.6 GM/dL (10.7-15.3); LYMPH % 14.2 % (8-40); MCH 28.8 pg (25.7-33.7); MCHC 33.3 g/dl (32.0-36.0); MEAN CELL VOLUME 86.6 fl (80-96); MEAN PLT VOLUME 9.1 fl (7.5-11.1); MONO % 15.6 % (3.8-10.2); NEUT % 67.5 % (42.8-82.8); PLATELET COUNT 216 K/MM3 (134-434); RBC 2.98 M/mm3 (3.60-5.2); RDW 17.5 % (11.6-15.6); WHITE BLOOD COUNT 7.7 K/mm3 (4.0-10.0)
[2017-10-24 06:23] LABS: ARTERIAL BLD GAS O2 SATURATION 86.4 % (90-98.9); ARTERIAL BLOOD GAS BASE EXCESS 3.3 meq/l (-2-2); ARTERIAL BLOOD GAS PCO2 49.4 mmHg (35-45); ARTERIAL BLOOD GAS PO2 55.1 mmHg (80-100); ARTERIAL BLOOD GAS pH 7.38 (7.35-7.45)
[2017-10-24 06:25] LABS: ALBUMIN 3.1 g/dl (3.4-5.0); ANION GAP 11 (8-16); BLOOD UREA NITROGEN 17 mg/dL (7-18); CALCIUM 9.1 mg/dL (8.5-10.1); CHLORIDE 101 mmol/L (98-107); CO2 28 mmol/L (21-32); GLUCOSE,RANDOM 148 mg/dL (74-106); MAGNESIUM 1.9 mg/dL (1.8-2.4); POTASSIUM 3.3 mmol/L (3.5-5.1); SODIUM 140 mmol/L (136-145)
[2017-10-24 06:32] LABS: ALLENS TEST POSITIVE
[2017-10-24 06:41] LABS: BILIRUBIN,TOTAL 0.5 mg/dL (0.2-1.0); CREATININE 2.4 mg/dL (0.55-1.02); PHOSPHOROUS 3.3 mg/dL (2.5-4.9); SGOT/AST 199 U/L (15-37); SGPT/ALT 43 U/L (12-78); TOT PROT 6.9 g/dl (6.4-8.2)
[2017-10-24 06:56] LABS: ALK PHOS 1421 U/L (45-117)
[2017-10-24] MEDS ORDERED: KCL 10 MEQ IVPB 10 MEQ/100 ML INFUS.BAG IVPB SCH (07:45)
--- NOTE | 2017-10-24 08:22 | PN ---
Physical Exam: UPDATE 2: Pt tolerating extubation well. Can start on PO BP meds, previous insulin regiment, and advance diet UPDATE 1: Pt self extubated with good cough reflex. Pt put on VM 50%. Decadron 4mg ordered for soft tissue swelling from traumatic extubation. SUBJECTIVE: Pt reported to have been found nonresponsive by mother at home and when waiting for EMS went into cardiac arrest. Pt had 1 round of epi given and ROSC was obtained. She was intubated for airway protection and respiratory distress. Currently pt remains intubated and sedated. OBJECTIVE: Vital Signs Period Temp Pulse Resp BP Sys/Ames Pulse Ox Last 24 Hr 97.8 F-98.8 F 80-101 13-24 130-223/70-124 78-100 GENERAL: Intubated and sedated HEENT: NC/AT, very sluggish pupils currently, MMM, no conjunctival exudate, no king or other lesions to mouth NECK: No JVD LUNGS: CTA bilaterally anteriorly, no wheezes, no crackles, no accessory muscle use. AC mode of vent HEART: RRR, S1, S2 without murmur ABDOMEN: Soft, nontender, nondistended, hypoactive bowel sounds EXTREMITIES: R foot bandaged without any drainage noted, L foot with 1+ DP pulse , 1+ pitting edema to knee noted Laboratory Results - last 24 hr 10/23/17 10/23/17 10/23/17 12:25 12:25 12:31 WBC 9.1 RBC 3.07 L Hgb 8.8 L Hct 31.4 L D MCV 102.3 H MCH 28.6 MCHC 27.9 L RDW 19.0 H Plt Count 140 D MPV 11.4 H D Absolute Neuts (auto) 7.9 Neutrophils % 86.8 H D Lymphocytes % 2.0 L D Monocytes % 6.5 Eosinophils % 0.1 D Basophils % 4.6 H D Nucleated RBC % 0 PT with INR 12.80 INR 1.13 PTT (Actin FS) 27.4 Puncture Site ABG pH ABG pCO2 at Pt Temp ABG pO2 at Pt Temp ABG HCO3 ABG O2 Sat (Measured) ABG O2 Content ABG Base Excess Izaiah Test VBG pH POC VBG pCO2 POC VBG pO2 Mixed VBG HCO3 O2 Delivery Device Oxygen Flow Rate Vent Mode Vent Rate Mechanical Rate PEEP Pressure Support Vent Sodium Potassium Chloride Carbon Dioxide Anion Gap BUN Creatinine Creat Clearance w eGFR Random Glucose Lactic Acid 3.4 H* Calcium Phosphorus Magnesium Total Bilirubin AST ALT Alkaline Phosphatase Creatine Kinase Troponin I Total Protein Albumin TSH Alcohol, Quantitative Acetone, Qual Blood Type Antibody Screen 10/23/17 10/23/17 10/23/17 12:31 12:36 13:57 WBC RBC Hgb Hct MCV MCH MCHC RDW Plt Count MPV Absolute Neuts (auto) Neutrophils % Lymphocytes % Monocytes % Eosinophils % Basophils % Nucleated RBC % PT with INR INR PTT (Actin FS) Puncture Site ABG pH ABG pCO2 at Pt Temp ABG pO2 at Pt Temp ABG HCO3 ABG O2 Sat (Measured) ABG O2 Content ABG Base Excess Izaiah Test VBG pH 7.14 L* D POC VBG pCO2 55.1 H D POC VBG pO2 61.1 H D Mixed VBG HCO3 18.0 L O2 Delivery Device Oxygen Flow Rate Vent Mode Vent Rate Mechanical Rate PEEP Pressure Support Vent Sodium 128 L Potassium 5.1 Chloride 94 L Carbon Dioxide 17 L Anion Gap 17 H BUN 39 H Creatinine 4.6 H Creat Clearance w eGFR 11.35 Random Glucose 1202 H* Lactic Acid Calcium 8.5 Phosphorus Magnesium Total Bilirubin 0.6 AST 163 H ALT 43 Alkaline Phosphatase 1544 H D Creatine Kinase Troponin I < 0.02 Total Protein 7.4 Albumin 3.3 L TSH Alcohol, Quantitative Acetone, Qual Positive small 1+ H Blood Type Antibody Screen 10/23/17 10/23/17 10/23/17 15:10 15:25 16:40 WBC 6.2 RBC 2.71 L Hgb 7.9 L Hct 25.3 L D MCV 93.6 D MCH 29.1 MCHC 31.1 L RDW 18.4 H Plt Count 218 D MPV 10.3 Absolute Neuts (auto) 4.7 Neutrophils % 76.3 Lymphocytes % 9.5 D Monocytes % 13.2 H D Eosinophils % 0.1 Basophils % 0.9 Nucleated RBC % 0 PT with INR INR PTT (Actin FS) Puncture Site No Result Required. ABG pH 7.17 L* ABG pCO2 at Pt Temp 48.8 H D ABG pO2 at Pt Temp 101.0 H ABG HCO3 17.3 L ABG O2 Sat (Measured) 96.6 ABG O2 Content 11.6 L ABG Base Excess -10.3 L* Izaiah Test Positive VBG pH POC VBG pCO2 POC VBG pO2 Mixed VBG HCO3 O2 Delivery Device Oxygen Flow Rate 40 Vent Mode Vent Rate 16 Mechanical Rate PEEP 5.0 Pressure Support Vent Sodium Potassium Chloride Carbon Dioxide Anion Gap BUN Creatinine Creat Clearance w eGFR Random Glucose Lactic Acid 2.6 H* Calcium Phosphorus Magnesium Total Bilirubin AST ALT Alkaline Phosphatase Creatine Kinase Troponin I Total Protein Albumin TSH Alcohol, Quantitative Acetone, Qual Blood Type Antibody Screen 10/23/17 10/23/17 10/23/17 16:40 16:40 17:50 WBC RBC Hgb Hct MCV MCH MCHC RDW Plt Count MPV Absolute Neuts (auto) Neutrophils % Lymphocytes % Monocytes % Eosinophils % Basophils % Nucleated RBC % PT with INR INR PTT (Actin FS) Puncture Site ABG pH ABG pCO2 at Pt Temp ABG pO2 at Pt Temp ABG HCO3 ABG O2 Sat (Measured) ABG O2 Content ABG Base Excess Izaiah Test VBG pH POC VBG pCO2 POC VBG pO2 Mixed VBG HCO3 O2 Delivery Device Oxygen Flow Rate Vent Mode Vent Rate Mechanical Rate PEEP Pressure Support Vent Sodium 135 L Potassium 6.3 H* Chloride 106 Carbon Dioxide 17 L Anion Gap 12 BUN 39 H Creatinine 4.1 H Creat Clearance w eGFR 12.96 Random Glucose 709 H* Lactic Acid 4.8 H* Calcium 6.4 L* Phosphorus 4.1 Magnesium 1.7 L Total Bilirubin 0.6 AST 380 H ALT 71 Alkaline Phosphatase 1257 H D Creatine Kinase Troponin I 0.03 Total Protein 5.9 L Albumin 2.7 L TSH Alcohol, Quantitative < 5.0 Acetone, Qual Blood Type Antibody Screen 10/23/17 10/23/17 10/23/17 21:24 21:24 21:24 WBC 6.3 RBC 2.67 L Hgb 7.6 L Hct 24.2 L MCV 90.8 MCH 28.4 MCHC 31.3 L RDW 17.1 H Plt Count 214 MPV 9.9 Absolute Neuts (auto) 4.2 Neutrophils % 67.2 Lymphocytes % 14.9 D Monocytes % 17.0 H Eosinophils % 0.3 D Basophils % 0.6 Nucleated RBC % 0 PT with INR INR PTT (Actin FS) Puncture Site ABG pH ABG pCO2 at Pt Temp ABG pO2 at Pt Temp ABG HCO3 ABG O2 Sat (Measured) ABG O2 Content ABG Base Excess Izaiah Test VBG pH POC VBG pCO2 POC VBG pO2 Mixed VBG HCO3 O2 Delivery Device Oxygen Flow Rate Vent Mode Vent Rate Mechanical Rate PEEP Pressure Support Vent Sodium 139 Potassium 3.1 L Chloride 104 Carbon Dioxide 19 L Anion Gap 16 BUN 41 H Creatinine 4.2 H Creat Clearance w eGFR 12.60 Random Glucose 376 H* Lactic Acid Calcium 15.5 H* Phosphorus 4.3 Magnesium 1.8 Total Bilirubin 0.5 AST 302 H ALT 61 Alkaline Phosphatase 1332 H D Creatine Kinase Troponin I Total Protein 6.2 L Albumin 2.9 L TSH 2.54 Alcohol, Quantitative Acetone, Qual Blood Type Antibody Screen 10/23/17 10/24/17 10/24/17 21:24 02:30 02:30 WBC 7.1 RBC 3.23 L Hgb 9.2 L Hct 28.0 L D MCV 86.5 MCH 28.4 MCHC 32.8 RDW 17.2 H Plt Count 257 D MPV 9.6 Absolute Neuts (auto) Neutrophils % Lymphocytes % Monocytes % Eosinophils % Basophils % Nucleated RBC % PT with INR INR PTT (Actin FS) Puncture Site ABG pH ABG pCO2 at Pt Temp ABG pO2 at Pt Temp ABG HCO3 ABG O2 Sat (Measured) ABG O2 Content ABG Base Excess Izaiah Test VBG pH POC VBG pCO2 POC VBG pO2 Mixed VBG HCO3 O2 Delivery Device Oxygen Flow Rate Vent Mode Vent Rate Mechanical Rate PEEP Pressure Support Vent Sodium 138 Potassium 3.4 L Chloride 99 Carbon Dioxide 31 Anion Gap 8 BUN 15 D Creatinine 2.0 H Creat Clearance w eGFR 29.67 Random Glucose 124 H Lactic Acid 3.3 H* Calcium 9.4 Phosphorus 2.1 L Magnesium 1.9 Total Bilirubin 0.6 AST 279 H ALT 57 Alkaline Phosphatase 1597 H D Creatine Kinase Troponin I Total Protein 7.8 Albumin 3.5 TSH Alcohol, Quantitative Acetone, Qual Blood Type Antibody Screen 10/24/17 10/24/17 10/24/17 02:30 02:30 03:20 WBC RBC Hgb Hct MCV MCH MCHC RDW Plt Count MPV Absolute Neuts (auto) Neutrophils % Lymphocytes % Monocytes % Eosinophils % Basophils % Nucleated RBC % PT with INR INR PTT (Actin FS) Puncture Site Right brachial ABG pH 7.41 D ABG pCO2 at Pt Temp 46.9 H ABG pO2 at Pt Temp 52.6 L D ABG HCO3 29.3 H ABG O2 Sat (Measured) 86.0 L ABG O2 Content 10.5 L ABG Base Excess 4.6 H Izaiah Test Positive VBG pH POC VBG pCO2 POC VBG pO2 Mixed VBG HCO3 O2 Delivery Device Mech vent Oxygen Flow Rate 40 Vent Mode A/c Vent Rate 16 Mechanical Rate Yes PEEP 5.0 Pressure Support Vent 425 Sodium Potassium Chloride Carbon Dioxide Anion Gap BUN Creatinine Creat Clearance w eGFR Random Glucose Lactic Acid 2.1 H Calcium Phosphorus Magnesium Total Bilirubin AST ALT Alkaline Phosphatase Creatine Kinase Troponin I Total Protein Albumin TSH Alcohol, Quantitative Acetone, Qual Blood Type B POSITIVE Antibody Screen Negative 10/24/17 10/24/17 10/24/17 03:40 05:30 05:30 WBC 7.7 RBC 2.98 L Hgb 8.6 L Hct 25.8 L MCV 86.6 MCH 28.8 MCHC 33.3 RDW 17.5 H Plt Count 216 MPV 9.1 Absolute Neuts (auto) 5.2 Neutrophils % 67.5 Lymphocytes % 14.2 Monocytes % 15.6 H Eosinophils % 2.0 D Basophils % 0.7 Nucleated RBC % 0 PT with INR INR PTT (Actin FS) Puncture Site ABG pH ABG pCO2 at Pt Temp ABG pO2 at Pt Temp ABG HCO3 ABG O2 Sat (Measured) ABG O2 Content ABG Base Excess Izaiah Test VBG pH POC VBG pCO2 POC VBG pO2 Mixed VBG HCO3 O2 Delivery Device Oxygen Flow Rate Vent Mode Vent Rate Mechanical Rate PEEP Pressure Support Vent Sodium 140 Potassium 3.3 L Chloride 101 Carbon Dioxide 28 Anion Gap 11 BUN 17 Creatinine 2.4 H Creat Clearance w eGFR 24.04 Random Glucose 148 H Lactic Acid Calcium 9.1 Phosphorus 3.3 Magnesium 1.9 Total Bilirubin 0.5 AST 199 H ALT 43 Alkaline Phosphatase 1421 H D Creatine Kinase 99 Troponin I 0.05 Total Protein 6.9 Albumin 3.1 L TSH Alcohol, Quantitative Acetone, Qual Blood Type Antibody Screen 10/24/17 06:00 WBC RBC Hgb Hct MCV MCH MCHC RDW Plt Count MPV Absolute Neuts (auto) Neutrophils % Lymphocytes % Monocytes % Eosinophils % Basophils % Nucleated RBC % PT with INR INR PTT (Actin FS) Puncture Site Right brachial ABG pH 7.38 ABG pCO2 at Pt Temp 49.4 H ABG pO2 at Pt Temp 55.1 L ABG HCO3 28.6 H ABG O2 Sat (Measured) 86.4 L ABG O2 Content 12.8 L ABG Base Excess 3.3 H Izaiah Test Positive VBG pH POC VBG pCO2 POC VBG pO2 Mixed VBG HCO3 O2 Delivery Device Vent Oxygen Flow Rate 40 Vent Mode Vent Rate 16 Mechanical Rate PEEP 5.0 Pressure Support Vent Sodium Potassium Chloride Carbon Dioxide Anion Gap BUN Creatinine Creat Clearance w eGFR Random Glucose Lactic Acid Calcium Phosphorus Magnesium Total Bilirubin AST ALT Alkaline Phosphatase Creatine Kinase Troponin I Total Protein Albumin TSH Alcohol, Quantitative Acetone, Qual Blood Type Antibody Screen Active Medications Generic Name Dose Route Start Last Admin Trade Name Freq PRN Reason Stop Dose Admin Albumin Human 12.5 gm 10/23/17 21:30 Albumin Human 25% IVPB Q30M ROSA MARIA Propofol 1,000,000 mcg in 100 mls @ 2.381 mls/hr 10/23/17 13:45 10/23/17 22: 00 Diprivan - IVPUSH 55 mcg/kg/min TITR ROSA MARIA 26.195 mls/hr Titration Protocol 5 MCG/KG/MIN Sodium Chloride 250 mls @ 3,000 mls/hr 10/23/17 21:18 Normal Saline - IV 10/24/17 21:18 PRN PRN Hypotension during Dialysis Sodium Chloride 250 mls @ 3,000 mls/hr 10/23/17 21:21 Normal Saline - IV 10/24/17 21:21 PRN PRN Hypotension during Dialysis Fentanyl 500 mcg/ Dextrose 100 mls @ 10 mls/hr 10/24/17 03:45 10/24/17 01:00 IVPB 10 mls/hr TITR ROSA MARIA Administration Protocol 50 MCG/HR ASSESSMENT/PLAN: Neuro: Currently sedated --Remove sedation for assessment of neurological function Respiratory: Acute hypoxic respiratory distress --Will wean as tolerated once mental status is evaluated --Aspiration precautions: HOB elevated --Maintain SpO2 >90% Cardiac: S/P Cardiac arrest --DDx includes PE vs. hypoxia-induced vs. substance ingestion? --Monitor telemetry --CTA Chest stat to evaluate for any thrombus --Duplex of lower extremities for incomplete thrombi --Echocardiogram for evaluation of pt's L atrial thrombus noted previously Renal: ESRD (T/T/S) --Pt received dialysis yesterday --Currently no reason for dialysis to occur today (no electrolyte abnormalities; no significant overload; no uremia) Endocrine: Hyperglycemia --Not all workup done so ? HHS --BGM 100's with discontinued insulin gtt --Being that pt is intubated and npo will cover with sliding scale --From previous admissions pt can be sensitive to novolog; will start with gentle scale and cover TIDAC FEN: Fluids: Avoid due to susceptibility to become fluid overloaded Electrolyte abnormalities: Hypokalemia, however expect to increase; would not supplement at this time Nutrition: NPO while intubated PPX: DVT - Heparin SQ TID Dispo: Continue ICU monitoring; wean if able from sedation and vent Mike Rodrigues, DO - IM PGY-2 Visit type - Emergency Visit Emergency Visit: No - New Patient This patient is new to me today: No - Critical Care Critical Care patient: Yes Total Critical Care Time (in minutes): 40 Critical Care Statement: The care of this patient involved high complexity decision making to prevent further life threatening deterioration of the patient 's condition and/or to evaluate & treat vital organ system(s) failure or risk of failure.
[2017-10-24] MEDS ORDERED: DEXAMETHASONE SOD PHOSPHATE 4 MG/1 ML VIAL IVPUSH ONE (09:02)
[2017-10-24] MEDS ORDERED: DEXAMETHASONE SOD PHOSPHATE 10 MG/1 ML VIAL ONE (09:07)
--- NOTE | 2017-10-24 09:22 | CONSULT ---
Consult - text type - Consultation Consultation Note: Renal Consult for ESRD/Hyperkalemia/Volume Overload This is a 27 year old AA woman with PMhx of ESRD on HD (secondary to DM), IDDM, Hypertension, PVD, Atrial thrombus who presented via EMS with AMS/ Unresponsiveness at home with cardiac arrest requiring CPR in the field. Pt was intubated in the ER and transferred to the ICU. s/p Emergent dialysis yesterday evening for hyperkalemia and volume overlaod. Pt self extubated this am. Vitals signs stable. Pt does not recall events prior to admission. She denies any chest pain, abd pain, fevers. Does report some trouble breathing after extubation but O2 sat is ok. Last dialysis prior to admission was Wednesday. PMHx: as above Allergies: NKDA Family Hx: NC Social hx: No T/A/D ROS: As per HPI, all other pertinent ros negative Home Medications Medication Instructions Recorded Losartan Potassium [Cozaar -] 100 mg PO DAILY 12/21/16 cloNIDine HCL [Catapres -] 0.3 mg PO TID 06/28/17 Oxycodone HCl [Oxycontin] 10 mg PO Q6H PRN 07/12/17 Pantoprazole Sodium [Protonix -] 20 mg PO DAILY #7 tablet.ec 08/30/17 Hydralazine HCl 100 mg PO TID 09/01/17 Collagenase Clostridium Hist. 1 applic TP DAILY #1 tube 10/01/17 [Santyl -] Insulin Detemir [Levemir Flextouch] 17 unit SQ BID #1 insuln.pen 10/01/17 Labetalol HCl [Normodyne -] 500 mg PO TID #225 tablet 10/01/17 Nifedipine ER [Procardia XL -] 90 mg PO DAILY #90 tab.er.24 10/01/17 Miscellaneous Medical Supply 1 each ASDIR #1 misc 10/02/17 [Outpatient Order] Insulin Lispro [Humalog Kwikpen 100 unit SQ ASDIR #10 insuln.pen 10/03/17 U-100] Unobtainable Med List. 10/23/17 Vital Signs Temperature 98.3 F 10/24/17 07:25 Pulse Rate 82 10/24/17 08:00 Respiratory Rate 16 10/24/17 08:15 Blood Pressure 135/77 10/24/17 08:00 O2 Sat by Pulse Oximetry (%) 100 10/24/17 07:49 Intake & Output 10/21/17 10/22/17 10/23/17 10/24/17 23:59 23:59 23:59 23:59 Intake Total 475 551 Output Total 300 Balance 475 251 Weight 70.7 kg 70.2 kg awake and alert on Facemask O2 NAD Neck supple, no JVD, MMM RRR, No M/R/G B/L AE, CTA, no rales or wheeze soft NT/ND, no rebound or guarding. No hepatomegaly + Le edema, no clubbing or cyanosis Extremities are warm, pules intact oriented to place and person CBC, BMP 10/24/17 05:30 10/24/17 05:30 Current Medications Albumin Human (Albumin Human 25%) 12.5 gm IVPB Q30M ROSA MARIA Propofol (Diprivan -) 1,000,000 mcg in 100 mls @ 2.381 mls/hr IVPUSH TITR ROSA MARIA; Protocol Last Titration: 10/23/17 22:00 Dose: 55 mcg/kg/min, 26.195 mls/hr Sodium Chloride (Normal Saline -) 250 mls @ 3,000 mls/hr IV PRN PRN PRN Reason: Hypotension during Dialysis Stop: 10/24/17 21:18 Sodium Chloride (Normal Saline -) 250 mls @ 3,000 mls/hr IV PRN PRN PRN Reason: Hypotension during Dialysis Stop: 10/24/17 21:21 Fentanyl 500 mcg/ Dextrose 100 mls @ 10 mls/hr IVPB TITR ROSA MARIA; Protocol Last Admin: 10/24/17 01:00 Dose: 10 mls/hr 27 year old AA woman with PMhx of ESRD on HD (secondary to DM), IDDM, Hypertension, PVD, Atrial thrombus who presented via EMS with AMS/ Unresponsiveness at home with cardiac arrest requiring CPR in the field. #Cardiac Arrest #Hyperglycemia/? DKA #Lactic Acidosis #Hyperkalemia #ESRD on HD #Chronic Anemia #Recently diagnosed Osteomylitis ICU monitoring/care ? etiology of arrest, consider CTA of the lungs r/o PE given hx of thrombus On supplemental O2, consider ABG s/p extuabtion Trend Lactic acidosis, BP is at gaol K is improved s/p Insulin and HD s/p urgent HD yesterday with 3.5kg UF will plan for additional dialysis tomorrow morning will give MACIE with HD, no need for PRBC transfusion at this time s/p Vanco and Zosyn last night f/u cultures will continue Ancef with HD unless otherwise indicated Thank you Will follow Nathan Vo DO
[2017-10-24] MEDS ORDERED: SODIUM CHLORIDE 250 ML IV PRN (09:32)
--- NOTE | 2017-10-24 09:50 | PN ---
Teaching Attending Note Name of Resident: Mike Rodrigues ATTENDING PHYSICIAN STATEMENT I saw and evaluated the patient. I reviewed the resident's note and discussed the case with the resident. I agree with the resident's findings and plan as documented. SUBJECTIVE: Pt seen and examined in the ICU. Self extubated this AM, now on 50% ventimask. Off insulin gtt. OBJECTIVE: Vital Signs Period Temp Pulse Resp BP Sys/Ames Pulse Ox Last 24 Hr 97.8 F-98.8 F 80-101 13-24 130-223/70-124 78-100 Intake & Output 10/21/17 10/22/17 10/23/17 10/24/17 23:59 23:59 23:59 23:59 Intake Total 475 551 Output Total 300 Balance 475 251 Weight 70.7 kg 70.2 kg Gen: tachypneic on ventimask Heart: tachycardic, regular Lung: decreased breath sounds at the bases Abd: soft, nontender Ext: no edema CBC, BMP 10/24/17 05:30 10/24/17 05:30 Active Medications Albumin Human (Albumin Human 25%) 12.5 gm IVPB Q30M ROSA MARIA Albumin Human (Albumin Human 25%) 12.5 gm IVPB Q30M ROSA MARIA Cefazolin Sodium/Dextrose (Ancef 2 Gm Premixed Ivpb -) 2 gm IVPB ONCE ONE Stop: 10/25/17 08:01 Epoetin Abiel (Epogen -) 20,000 unit IVPUSH ONCE ONE Stop: 10/25/17 06:01 Propofol (Diprivan -) 1,000,000 mcg in 100 mls @ 2.381 mls/hr IVPUSH TITR ROSA MARIA; Protocol Last Titration: 10/24/17 09:00 Dose: 0 mcg/kg/min, 0 mls/hr Sodium Chloride (Normal Saline -) 250 mls @ 3,000 mls/hr IV PRN PRN PRN Reason: Hypotension during Dialysis Stop: 10/24/17 21:18 Sodium Chloride (Normal Saline -) 250 mls @ 3,000 mls/hr IV PRN PRN PRN Reason: Hypotension during Dialysis Stop: 10/24/17 21:21 Fentanyl 500 mcg/ Dextrose 100 mls @ 10 mls/hr IVPB TITR ROSA MARIA; Protocol Last Admin: 10/24/17 09:00 Dose: Not Given Sodium Chloride (Normal Saline -) 250 mls @ 3,000 mls/hr IV PRN PRN PRN Reason: Hypotension during Dialysis Stop: 10/25/17 09:32 ASSESSMENT AND PLAN: s/p Cardiopulmonary Arrest HHNK/DKA overlap Lactic Acidosis ESRD on HD Anemia HTN Seizure Disorder h/o PE - pt extubated - O2 to keep Spo2 >90% - glucose control - CTA chest to r/o PE - HD per renal - NPO for now - on empiric antibiotics - DVT prophylaxis - continue ICU monitoring critical care time spent in reviewing chart, evaluating patient and formulating plan 35 min
[2017-10-24 10:38] LABS: ANION GAP 10 (8-16); BLOOD UREA NITROGEN 20 mg/dL (7-18); CHLORIDE 97 mmol/L (98-107); CO2 28 mmol/L (21-32); CREATININE 2.9 mg/dL (0.55-1.02); SODIUM 135 mmol/L (136-145)
[2017-10-24 10:48] LABS: GLUCOSE,RANDOM 486 mg/dL (74-106)
[2017-10-24] MEDS ORDERED: INSULIN (LEVEMIR) 100 UNITS/ML UNITS SQ SCH ×2 (11:00→22:00)
--- NOTE | 2017-10-24 11:12 | HP ---
Admitting History and Physical - Admission History of Present Illness: 27 y/o F w/PMH of ESRD on HD (MWF), HTN, IDDM, seizure d/o, PE presents to the ER after being found disoriented and subsequently pulseless by her mother this AM. Pt was in her usual state of health according to mother the day prior. Pt had watched a movie with mother at night yesterday night and went to bed afterwards. Around 10:30 in the morning pt's mother heard a noise from the pt's room and went to check on her and found the pt with gurgling and was disoriented. Mother then called EMS and approximately 2 min before EMS arrived pt went pulseless according to mother. EMS promptly started CPR and after epi x1 and calcium x1 ROSC was achieved but pt was unable to be intubated and was bagged on the way to the ER. Pt was then intubated in the ER. According to mother pt was feeling well overall, had dialysis yesterday, does not drink alcohol or drugs, was not sick recently, had no complaints recently, and had no recent travel hx. Pt is on oxycodone at home and mother states the pt takes medication as prescribed. Patient self extubated herself this am awake--weak - Past Medical History Cardiovascular: Yes: CHF, HTN, Other (thrombus in atrium, PE, DVT) Pulmonary: Yes: Pulmonary Embolus Renal/: Yes: Renal Failure, Hemodialysis ...LMP: 05/13/17 Heme/Onc: Yes: Anemia, Other (atrial myxoma s/p surgical removal. Also has a history of PE ) Infectious Disease: Yes: MRSA (history of bacteremia, recent mrsa foot abscess) Endocrine: Yes: Diabetes Mellitus (type 1 on insulin pump) - Past Surgical History Past Surgical History: Yes: AV Fistula/Graft (Right arm) - Smoking History Smoking history: Unknown if ever smoked Have you smoked in the past 12 months: No Aproximately how many cigarettes per day: 10 If you are a former smoker, when did you quit?: couple months ago - Alcohol/Substance Use Hx Alcohol Use: No History of Substance Use: reports: None - Social History ADL: Independent Occupation: unemployed History of Recent Travel: No Home Medications - Allergies Allergies/Adverse Reactions: Allergies Allergy/AdvReac Type Severity Reaction Status Date / Time No Known Drug Allergies Allergy Verified 10/23/17 14:33 lactose AdvReac Verified 10/23/17 14:33 - Home Medications Home Medications: Ambulatory Orders Losartan Potassium [Cozaar -] 100 mg PO DAILY 12/21/16 cloNIDine HCL [Catapres -] 0.3 mg PO TID 06/28/17 Oxycodone HCl [Oxycontin] 10 mg PO Q6H PRN 07/12/17 Pantoprazole Sodium [Protonix -] 20 mg PO DAILY #7 tablet.ec 08/30/17 Hydralazine HCl 100 mg PO TID 09/01/17 Collagenase Clostridium Hist. [Santyl -] 1 applic TP DAILY #1 tube 10/01/17 Insulin Detemir [Levemir Flextouch] 17 unit SQ BID #1 insuln.pen 10/01/17 Labetalol HCl [Normodyne -] 500 mg PO TID #225 tablet 10/01/17 Nifedipine ER [Procardia XL -] 90 mg PO DAILY #90 tab.er.24 10/01/17 Miscellaneous Medical Supply [Outpatient Order] 1 each ASDIR #1 misc Insulin Lispro [Humalog Kwikpen U-100] 100 unit SQ ASDIR #10 insuln.pen Unobtainable Med List. 10/23/17 Family Disease History - Family Disease History Family Disease History: Diabetes: Grandparent (HTN), Heart Disease: Grandparent , Other: Father (unknown), Mother (HTN) Physical Examination Vital Signs: Vital Signs Temperature 99.3 F 10/24/17 10:00 Pulse Rate 92 H 10/24/17 10:00 Respiratory Rate 18 10/24/17 10:00 Blood Pressure 163/95 10/24/17 10:00 O2 Sat by Pulse Oximetry (%) 100 10/24/17 09:00 Cardiovascular: Yes: S1, S2 Respiratory: Yes: Diminished, Rhonchi Gastrointestinal: Yes: Normal Bowel Sounds, Soft Neurological: Yes: Alert, Oriented, Weakness Labs: CBC, BMP 10/24/17 05:30 10/24/17 09:55 Imaging - Results Cat Scan: Report Reviewed Problem List - Problems (1) Cardiac arrest Assessment/Plan: -Structural heart defect vs possible drug use vs arrhythmia vs Acidosis -PE ruled out -Head CT negative -EKG w/o S1Q3T3 clearly present -Will get echo, duplex U/S b/l LE -Unable to get Utox as pt does not produce urine -Cardiology consulted -Alcohol level negative -Trops neg x2 -f/u TSH, BCx -Vanc 1g, Zosyn 2.25 g once -ID consult -CXR and ABG in AM Code(s): I46.9 - CARDIAC ARREST, CAUSE UNSPECIFIED (2) DKA (diabetic ketoacidoses) Assessment/Plan: -pH acidotic and anion gap elevated pointing to DKA but acidosis can be elevated s/p cardiac arrest -Blood acetone small, bicarb 17, Serum Osm: 333 (>320) pointing towards HHS -on insulin drip. Given 10 units insulin IVP in ER--now on levemir -BGMs -BMPs -Endocrine consult noted -July 2017 A1C was 13.2% Code(s): E13.10 - OTH DIABETES MELLITUS WITH KETOACIDOSIS WITHOUT COMA Qualifiers: Diabetes mellitus type: type 1 Diabetes mellitus complication detail: with coma Qualified Code(s): E10.11 - Type 1 diabetes mellitus with ketoacidosis with coma (3) ESRD (end stage renal disease) on dialysis Assessment/Plan: -ESRD -on HD -dialyzed yesterday according to mother -Nephrology consult -For dialysis tonight -Dispo: Admit to ICU Code(s): N18.6 - END STAGE RENAL DISEASE; Z99.2 - DEPENDENCE ON RENAL DIALYSIS (4) HTN (hypertension) Assessment/Plan: -Monitor Vital Signs Period Temp Pulse Resp BP Sys/Ames Pulse Ox Last 24 Hr 97.8 F-99.3 F 80-101 13-24 130-223/70-124 99-100 Code(s): I10 - ESSENTIAL (PRIMARY) HYPERTENSION (5) Anemia Assessment/Plan: -7.9 Hgb on last lab, baseline approx 9 -will continue to monitor -Transfuse if Hgb <7 with goal Hgb >7 Code(s): D64.9 - ANEMIA, UNSPECIFIED Qualifiers: Folate deficiency anemia type: dietary (6) Pneumonia Assessment/Plan: -IV abx ID consult Code(s): J18.9 - PNEUMONIA, UNSPECIFIED ORGANISM
[2017-10-24] MEDS ORDERED: INSULIN (NOVOLOG) ASPART 100 UNITS/ML 10ML VIAL SQ ONE (11:20)
[2017-10-24] MEDS ORDERED: HEPARIN NA (PORCINE) 5,000 UNITS/ML 1ML VIAL IVPUSH PRN ×2 (11:34)
[2017-10-24] MEDS ORDERED: HEPARIN NA (PORCINE) 5,000 UNITS/ML 1ML VIAL IVPUSH ONE (11:34)
[2017-10-24] MEDS ORDERED: ENOXAPARIN NA (PORCINE) 60 MG/0.6 ML DISP.SYRIN SQ SCH (11:45)
[2017-10-24] MEDS ORDERED: HEPARIN - 25,000 UNIT in SODIUM CHLORIDE 495 ML IV SCH (11:45)
[2017-10-24] MEDS: LOSARTAN POTASSIUM 50 MG TABLET (FP) PO SCH (11:59)
--- NOTE | 2017-10-24 12:17 | CON.CARD ---
Consult Consult Specialty:: Cardiology Referred by:: Amy Reason for Consultation:: Cardiopulmonary arrest in field - History of Present Illness Chief Complaint: Arrest in field History of Present Illness: 27 year old female with a pmhx of IDDM, htn, pvd, ESRD on HD, seizure d/o, and atrial thrombus presenting after cardiac arrest at home. Patient was found unresponsive at home s/p CPR in field and intubated in ER. Found to have glucose 1200 and LA 3.3. CE's negative. EKG sinus rhythm with no ischemic changes, borderline qt. S/p emergent dialysis and insulin drip. Self extubated this am and on FiO2 at this time. Patient does not recall event. No f/c/s. No h/o chest pain except some chest wall tenderness. 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, PE, DVT) Pulmonary: Yes: Pulmonary Embolus Renal/: Yes: Renal Failure, Hemodialysis ...LMP: 05/13/17 Infectious Disease: Yes: MRSA (history of bacteremia, recent mrsa foot abscess) Endocrine: Yes: Diabetes Mellitus (type 1 on insulin pump) Additional Medical History: DVT, PE on coumadin - Past Surgical History Past Surgical History: Yes: AV Fistula/Graft (Right arm) - Alcohol/Substance Use Hx Alcohol Use: No History of Substance Use: reports: None - Smoking History Smoking history: Unknown if ever smoked Have you smoked in the past 12 months: No Aproximately how many cigarettes per day: 10 If you are a former smoker, when did you quit?: couple months ago - Social History Usual Living Arrangement: With Parent ADL: Independent Occupation: unemployed History of Recent Travel: No Home Medications - Allergies Allergies/Adverse Reactions: Allergies Allergy/AdvReac Type Severity Reaction Status Date / Time No Known Drug Allergies Allergy Verified 10/23/17 14:33 lactose AdvReac Verified 10/23/17 14:33 - Home Medications Home Medications: Ambulatory Orders Losartan Potassium [Cozaar -] 100 mg PO DAILY 12/21/16 cloNIDine HCL [Catapres -] 0.3 mg PO TID 06/28/17 Oxycodone HCl [Oxycontin] 10 mg PO Q6H PRN 07/12/17 Pantoprazole Sodium [Protonix -] 20 mg PO DAILY #7 tablet.ec 08/30/17 Hydralazine HCl 100 mg PO TID 09/01/17 Collagenase Clostridium Hist. [Santyl -] 1 applic TP DAILY #1 tube 10/01/17 Insulin Detemir [Levemir Flextouch] 17 unit SQ BID #1 insuln.pen 10/01/17 Labetalol HCl [Normodyne -] 500 mg PO TID #225 tablet 10/01/17 Nifedipine ER [Procardia XL -] 90 mg PO DAILY #90 tab.er.24 10/01/17 Miscellaneous Medical Supply [Outpatient Order] 1 each ASDIR #1 misc Insulin Lispro [Humalog Kwikpen U-100] 100 unit SQ ASDIR #10 insuln.pen Unobtainable Med List. 10/23/17 Family Disease History - Family Disease History Family Disease History: Diabetes: Grandparent (HTN), Heart Disease: Grandparent , Other: Father (unknown), Mother (HTN) Vital Signs: Vital Signs Temperature 99.3 F 10/24/17 10:00 Pulse Rate 98 H 10/24/17 12:00 Respiratory Rate 18 10/24/17 12:00 Blood Pressure 197/111 10/24/17 12:00 O2 Sat by Pulse Oximetry (%) 100 10/24/17 09:00 Constitutional: Yes: No Distress Neck: Yes: Supple Respiratory: Yes: CTA Bilaterally Gastrointestinal: Yes: Soft Cardiovascular: Yes: Regular Rate and Rhythm JVD: No Carotid Bruit: No PMI: Non-Displaced Heart Sounds: Yes: S1, S2 Murmur: Yes: Systolic Murmur (3/6 HSM throughout) Edema: No - Other Data Labs, Other Data: CBC, BMP 10/24/17 05:30 10/24/17 09:55 INR, PTT INR 1.13 (0.82-1.09) 10/23/17 12:25 Troponin, BNP 10/23/17 10/23/17 10/24/17 12:31 16:40 03:40 Troponin I < 0.02 0.03 0.05 Troponin, BNP 10/23/17 10/23/17 10/24/17 12:31 16:40 03:40 Troponin I < 0.02 0.03 0.05 Imaging - Results Chest X-ray: Report Reviewed Cat Scan: Report Reviewed EKG: Image Reviewed Assessment/Plan 27 year old female with a pmhx of IDDM, htn, pvd, ESRD on HD, and h/o pe/dvt presenting after cardiac arrest at home. Patient was found unresponsive at home s/p CPR in field and intubated in ER. Found to have glucose 1200 and LA 3.3. CE's negative. EKG sinus rhythm with no ischemic changes, borderline qt. S/p emergent dialysis and insulin drip. Self extubated this am and on FiO2 at this time. Patient does not recall event. No f/c/s. No h/o chest pain except some chest wall tenderness. CTA no PE. 1) Cardiopulmonary arrest -Possibly due to hyperglycemia and electrolyte abnormalities. Unlikely cardiac in origin. EKG with no ischemic changes. CE's negative. Monitor on tele for arrhythmia -Plan for echocardiogram -Monitor glucose and K very closely and treat K as needed. -On abx as per ICU team -H/o severe htn. Start titrating on home meds.
[2017-10-24] MEDS ORDERED: MIDAZOLAM HCL 5 MG/1 ML Single Dose Vial IVPUSH ONE (12:46)
[2017-10-24] MEDS: hydrALAZINE HCL 50 MG TABLET (FP) PO SCH ×2 (12:59→21:09)
[2017-10-24] MEDS: HEPARIN NA (PORCINE) 5,000 UNITS/ML 1ML VIAL SQ SCH ×2 (13:05→21:09)
[2017-10-24] MEDS ORDERED: INSULIN (LEVEMIR) 100 UNITS/ML UNITS SQ ONE (13:18)
[2017-10-24] MEDS: INSULIN SLIDING SCALE (NOVOLOG) 1 VIAL SQ SCH ×3 (13:36→21:30)
[2017-10-24] MEDS: cloNIDine HCL 0.1 MG TABLET PO SCH ×2 (13:49→21:08)
[2017-10-24] MEDS ORDERED: hydrALAZINE HCL 10 MG TABLET PO SCH (14:00)
--- NOTE | 2017-10-24 15:06 | CON.ID ---
Consult - History of Present Illness History of Present Illness: Pt is a 27 y.o. female with IDDM, ESRD on HD, seizure d.o. PE, PVD, Atrial thrombosis, cardiac myxoma, s/p myomectomy brought in by EMS after mother found her confused/disoriented and subsequently unresponsive. She was found pulseless and CPR was initiated. In the ER she was hypoxic and obtunded and was intubated , found to have Tmax 99.3 without leukocytosis but elevated lactic acid level. Pt currently in the ICU, extubated on O2 mask, saturating well. She states she was feeling well the night before and prior to that. Denies recent shortness of breath/cough/sputum production, fever/chills, abd pain/n/v/d, does not produce urine. Had HD session the day prior and was feeling well. On previous admission from 09/17 - 10/02/17 she was found to have an infected Rt foot plantar ulcer/OM underlying 5th toe. She underwent debridement and bone biopsy and was d/c on Cefazolin to be given during HD for 5 more wks. As per Podiatry note her last visit was 10/19/17 but had been noncompliant with f/u. Noted to have slight dehiscense Rt lateral toe site without purulence or surrounding erythema to indicate infection. Pt states she has been regularly receiving her antibiotic with HD. Currently patient is alert, afebrile, extubated and saturating well O2 NRM. Denies having any specific complaints. 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, PE, DVT) Pulmonary: Yes: Pulmonary Embolus Renal/: Yes: Renal Failure, Hemodialysis ...LMP: 05/13/17 Infectious Disease: Yes: MRSA (history of bacteremia, recent mrsa foot abscess) , Other (Rt plantar foot OM s/p debridement/biopsy) Endocrine: Yes: Diabetes Mellitus (type 1 on insulin pump) Additional Medical History: DVT, PE on coumadin - Past Surgical History Past Surgical History: Yes: AV Fistula/Graft (Right arm) - Alcohol/Substance Use Hx Alcohol Use: No History of Substance Use: reports: None - Smoking History Smoking history: Unknown if ever smoked Have you smoked in the past 12 months: No Aproximately how many cigarettes per day: 10 If you are a former smoker, when did you quit?: couple months ago - Social History Usual Living Arrangement: With Parent ADL: Independent Occupation: unemployed History of Recent Travel: No Home Medications - Allergies Allergies/Adverse Reactions: Allergies Allergy/AdvReac Type Severity Reaction Status Date / Time No Known Drug Allergies Allergy Verified 10/23/17 14:33 lactose AdvReac Verified 10/23/17 14:33 - Home Medications Home Medications: Ambulatory Orders Losartan Potassium [Cozaar -] 100 mg PO DAILY 12/21/16 cloNIDine HCL [Catapres -] 0.3 mg PO TID 06/28/17 Oxycodone HCl [Oxycontin] 10 mg PO Q6H PRN 07/12/17 Pantoprazole Sodium [Protonix -] 20 mg PO DAILY #7 tablet.ec 08/30/17 Hydralazine HCl 100 mg PO TID 09/01/17 Collagenase Clostridium Hist. [Santyl -] 1 applic TP DAILY #1 tube 10/01/17 Insulin Detemir [Levemir Flextouch] 17 unit SQ BID #1 insuln.pen 10/01/17 Labetalol HCl [Normodyne -] 500 mg PO TID #225 tablet 10/01/17 Nifedipine ER [Procardia XL -] 90 mg PO DAILY #90 tab.er.24 10/01/17 Miscellaneous Medical Supply [Outpatient Order] 1 each ASDIR #1 misc Insulin Lispro [Humalog Kwikpen U-100] 100 unit SQ ASDIR #10 insuln.pen Unobtainable Med List. 10/23/17 Family Disease History - Family Disease History Family Disease History: Diabetes: Grandparent (HTN), Heart Disease: Grandparent , Other: Father (unknown), Mother (HTN) Review of Systems - Review of Systems Constitutional: reports: Weakness HENT: reports: No Symptoms Neck: reports: No Symptoms Cardiovascular: reports: No Symptoms Respiratory: reports: SOB Gastrointestinal: reports: No Symptoms Genitourinary: reports: No Symptoms Musculoskeletal: reports: No Symptoms Integumentary: reports: Wound (Rt plantar underlying 5th toe, Rt lateral 5th toe ) Neurological: reports: Weakness Psychiatric: reports: No Symptoms Physical Exam Vital Signs: Vital Signs Temperature 99.3 F 10/24/17 10:00 Pulse Rate 92 H 07/22/18 14:00 Respiratory Rate 20 10/24/17 14:00 Blood Pressure 169/98 10/24/17 14:00 O2 Sat by Pulse Oximetry (%) 100 10/24/17 09:00 Constitutional: Yes: No Distress HENT: Yes: Atraumatic Neck: Yes: Supple Cardiovascular: Yes: Tachycardia Respiratory: Yes: CTA Bilaterally Gastrointestinal: Yes: Normal Bowel Sounds, Soft Renal/: Yes: Anuria (on HD) Musculoskeletal: Yes: WNL Extremities: Yes: WNL Wound/Incision: Yes: Other (Rt plantar foot 6x7cm ulcer under 5th toe without purulence/fluctuance/erythema/pain Rt lateral 5th toe mild dehicence without d/c ) Neurological: Yes: WNL Psychiatric: Yes: Alert Labs: CBC, BMP 10/24/17 05:30 10/24/17 09:55 Laboratory Tests 10/23/17 10/23/17 10/23/17 12:25 12:25 12:31 WBC 9.1 RBC 3.07 L Hgb 8.8 L Hct 31.4 L D MCV 102.3 H MCH 28.6 MCHC 27.9 L RDW 19.0 H Plt Count 140 D MPV 11.4 H D Absolute Neuts (auto) 7.9 Neutrophils % 86.8 H D Lymphocytes % 2.0 L D Monocytes % 6.5 Eosinophils % 0.1 D Basophils % 4.6 H D Nucleated RBC % 0 PT with INR 12.80 INR 1.13 PTT (Actin FS) 27.4 Puncture Site ABG pH ABG pCO2 at Pt Temp ABG pO2 at Pt Temp ABG HCO3 ABG O2 Sat (Measured) ABG O2 Content ABG Base Excess Izaiah Test VBG pH POC VBG pCO2 POC VBG pO2 Mixed VBG HCO3 O2 Delivery Device Oxygen Flow Rate Vent Mode Vent Rate Mechanical Rate PEEP Pressure Support Vent Sodium Potassium Chloride Carbon Dioxide Anion Gap BUN Creatinine Creat Clearance w eGFR Random Glucose Lactic Acid 3.4 H* Calcium Phosphorus Magnesium Total Bilirubin AST ALT Alkaline Phosphatase Creatine Kinase Troponin I Total Protein Albumin TSH Beta HCG, Quant Alcohol, Quantitative Acetone, Qual Blood Type Antibody Screen 10/23/17 10/23/17 10/23/17 12:31 12:36 13:57 WBC RBC Hgb Hct MCV MCH MCHC RDW Plt Count MPV Absolute Neuts (auto) Neutrophils % Lymphocytes % Monocytes % Eosinophils % Basophils % Nucleated RBC % PT with INR INR PTT (Actin FS) Puncture Site ABG pH ABG pCO2 at Pt Temp ABG pO2 at Pt Temp ABG HCO3 ABG O2 Sat (Measured) ABG O2 Content ABG Base Excess Izaiah Test VBG pH 7.14 L* D POC VBG pCO2 55.1 H D POC VBG pO2 61.1 H D Mixed VBG HCO3 18.0 L O2 Delivery Device Oxygen Flow Rate Vent Mode Vent Rate Mechanical Rate PEEP Pressure Support Vent Sodium 128 L Potassium 5.1 Chloride 94 L Carbon Dioxide 17 L Anion Gap 17 H BUN 39 H Creatinine 4.6 H Creat Clearance w eGFR 11.35 Random Glucose 1202 H* Lactic Acid Calcium 8.5 Phosphorus Magnesium Total Bilirubin 0.6 AST 163 H ALT 43 Alkaline Phosphatase 1544 H D Creatine Kinase Troponin I < 0.02 Total Protein 7.4 Albumin 3.3 L TSH Beta HCG, Quant Alcohol, Quantitative Acetone, Qual Positive small 1+ H Blood Type Antibody Screen 10/23/17 10/23/17 10/23/17 15:10 15:25 16:40 WBC 6.2 RBC 2.71 L Hgb 7.9 L Hct 25.3 L D MCV 93.6 D MCH 29.1 MCHC 31.1 L RDW 18.4 H Plt Count 218 D MPV 10.3 Absolute Neuts (auto) 4.7 Neutrophils % 76.3 Lymphocytes % 9.5 D Monocytes % 13.2 H D Eosinophils % 0.1 Basophils % 0.9 Nucleated RBC % 0 PT with INR INR PTT (Actin FS) Puncture Site No Result Required. ABG pH 7.17 L* ABG pCO2 at Pt Temp 48.8 H D ABG pO2 at Pt Temp 101.0 H ABG HCO3 17.3 L ABG O2 Sat (Measured) 96.6 ABG O2 Content 11.6 L ABG Base Excess -10.3 L* Izaiah Test Positive VBG pH POC VBG pCO2 POC VBG pO2 Mixed VBG HCO3 O2 Delivery Device Oxygen Flow Rate 40 Vent Mode Vent Rate 16 Mechanical Rate PEEP 5.0 Pressure Support Vent Sodium Potassium Chloride Carbon Dioxide Anion Gap BUN Creatinine Creat Clearance w eGFR Random Glucose Lactic Acid 2.6 H* Calcium Phosphorus Magnesium Total Bilirubin AST ALT Alkaline Phosphatase Creatine Kinase Troponin I Total Protein Albumin TSH Beta HCG, Quant Alcohol, Quantitative Acetone, Qual Blood Type Antibody Screen 10/23/17 10/23/17 10/23/17 16:40 16:40 17:50 WBC RBC Hgb Hct MCV MCH MCHC RDW Plt Count MPV Absolute Neuts (auto) Neutrophils % Lymphocytes % Monocytes % Eosinophils % Basophils % Nucleated RBC % PT with INR INR PTT (Actin FS) Puncture Site ABG pH ABG pCO2 at Pt Temp ABG pO2 at Pt Temp ABG HCO3 ABG O2 Sat (Measured) ABG O2 Content ABG Base Excess Izaiah Test VBG pH POC VBG pCO2 POC VBG pO2 Mixed VBG HCO3 O2 Delivery Device Oxygen Flow Rate Vent Mode Vent Rate Mechanical Rate PEEP Pressure Support Vent Sodium 135 L Potassium 6.3 H* Chloride 106 Carbon Dioxide 17 L Anion Gap 12 BUN 39 H Creatinine 4.1 H Creat Clearance w eGFR 12.96 Random Glucose 709 H* Lactic Acid 4.8 H* Calcium 6.4 L* Phosphorus 4.1 Magnesium 1.7 L Total Bilirubin 0.6 AST 380 H ALT 71 Alkaline Phosphatase 1257 H D Creatine Kinase Troponin I 0.03 Total Protein 5.9 L Albumin 2.7 L TSH Beta HCG, Quant Alcohol, Quantitative < 5.0 Acetone, Qual Blood Type Antibody Screen 10/23/17 10/23/17 10/23/17 21:24 21:24 21:24 WBC 6.3 RBC 2.67 L Hgb 7.6 L Hct 24.2 L MCV 90.8 MCH 28.4 MCHC 31.3 L RDW 17.1 H Plt Count 214 MPV 9.9 Absolute Neuts (auto) 4.2 Neutrophils % 67.2 Lymphocytes % 14.9 D Monocytes % 17.0 H Eosinophils % 0.3 D Basophils % 0.6 Nucleated RBC % 0 PT with INR INR PTT (Actin FS) Puncture Site ABG pH ABG pCO2 at Pt Temp ABG pO2 at Pt Temp ABG HCO3 ABG O2 Sat (Measured) ABG O2 Content ABG Base Excess Izaiah Test VBG pH POC VBG pCO2 POC VBG pO2 Mixed VBG HCO3 O2 Delivery Device Oxygen Flow Rate Vent Mode Vent Rate Mechanical Rate PEEP Pressure Support Vent Sodium 139 Potassium 3.1 L Chloride 104 Carbon Dioxide 19 L Anion Gap 16 BUN 41 H Creatinine 4.2 H Creat Clearance w eGFR 12.60 Random Glucose 376 H* Lactic Acid Calcium 15.5 H* Phosphorus 4.3 Magnesium 1.8 Total Bilirubin 0.5 AST 302 H ALT 61 Alkaline Phosphatase 1332 H D Creatine Kinase Troponin I Total Protein 6.2 L Albumin 2.9 L TSH 2.54 Beta HCG, Quant Alcohol, Quantitative Acetone, Qual Blood Type Antibody Screen 10/23/17 10/24/17 10/24/17 21:24 02:30 02:30 WBC 7.1 RBC 3.23 L Hgb 9.2 L Hct 28.0 L D MCV 86.5 MCH 28.4 MCHC 32.8 RDW 17.2 H Plt Count 257 D MPV 9.6 Absolute Neuts (auto) Neutrophils % Lymphocytes % Monocytes % Eosinophils % Basophils % Nucleated RBC % PT with INR INR PTT (Actin FS) Puncture Site ABG pH ABG pCO2 at Pt Temp ABG pO2 at Pt Temp ABG HCO3 ABG O2 Sat (Measured) ABG O2 Content ABG Base Excess Izaiah Test VBG pH POC VBG pCO2 POC VBG pO2 Mixed VBG HCO3 O2 Delivery Device Oxygen Flow Rate Vent Mode Vent Rate Mechanical Rate PEEP Pressure Support Vent Sodium 138 Potassium 3.4 L Chloride 99 Carbon Dioxide 31 Anion Gap 8 BUN 15 D Creatinine 2.0 H Creat Clearance w eGFR 29.67 Random Glucose 124 H Lactic Acid 3.3 H* Calcium 9.4 Phosphorus 2.1 L Magnesium 1.9 Total Bilirubin 0.6 AST 279 H ALT 57 Alkaline Phosphatase 1597 H D Creatine Kinase Troponin I Total Protein 7.8 Albumin 3.5 TSH Beta HCG, Quant Alcohol, Quantitative Acetone, Qual Blood Type Antibody Screen 10/24/17 10/24/17 10/24/17 02:30 02:30 03:20 WBC RBC Hgb Hct MCV MCH MCHC RDW Plt Count MPV Absolute Neuts (auto) Neutrophils % Lymphocytes % Monocytes % Eosinophils % Basophils % Nucleated RBC % PT with INR INR PTT (Actin FS) Puncture Site Right brachial ABG pH 7.41 D ABG pCO2 at Pt Temp 46.9 H ABG pO2 at Pt Temp 52.6 L D ABG HCO3 29.3 H ABG O2 Sat (Measured) 86.0 L ABG O2 Content 10.5 L ABG Base Excess 4.6 H Izaiah Test Positive VBG pH POC VBG pCO2 POC VBG pO2 Mixed VBG HCO3 O2 Delivery Device Mech vent Oxygen Flow Rate 40 Vent Mode A/c Vent Rate 16 Mechanical Rate Yes PEEP 5.0 Pressure Support Vent 425 Sodium Potassium Chloride Carbon Dioxide Anion Gap BUN Creatinine Creat Clearance w eGFR Random Glucose Lactic Acid 2.1 H Calcium Phosphorus Magnesium Total Bilirubin AST ALT Alkaline Phosphatase Creatine Kinase Troponin I Total Protein Albumin TSH Beta HCG, Quant Alcohol, Quantitative Acetone, Qual Blood Type B POSITIVE Antibody Screen Negative 10/24/17 10/24/17 10/24/17 03:40 05:30 05:30 WBC 7.7 RBC 2.98 L Hgb 8.6 L Hct 25.8 L MCV 86.6 MCH 28.8 MCHC 33.3 RDW 17.5 H Plt Count 216 MPV 9.1 Absolute Neuts (auto) 5.2 Neutrophils % 67.5 Lymphocytes % 14.2 Monocytes % 15.6 H Eosinophils % 2.0 D Basophils % 0.7 Nucleated RBC % 0 PT with INR INR PTT (Actin FS) Puncture Site ABG pH ABG pCO2 at Pt Temp ABG pO2 at Pt Temp ABG HCO3 ABG O2 Sat (Measured) ABG O2 Content ABG Base Excess Izaiah Test VBG pH POC VBG pCO2 POC VBG pO2 Mixed VBG HCO3 O2 Delivery Device Oxygen Flow Rate Vent Mode Vent Rate Mechanical Rate PEEP Pressure Support Vent Sodium 140 Potassium 3.3 L Chloride 101 Carbon Dioxide 28 Anion Gap 11 BUN 17 Creatinine 2.4 H Creat Clearance w eGFR 24.04 Random Glucose 148 H Lactic Acid Calcium 9.1 Phosphorus 3.3 Magnesium 1.9 Total Bilirubin 0.5 AST 199 H ALT 43 Alkaline Phosphatase 1421 H D Creatine Kinase 99 Troponin I 0.05 Total Protein 6.9 Albumin 3.1 L TSH Beta HCG, Quant Alcohol, Quantitative Acetone, Qual Blood Type Antibody Screen 10/24/17 10/24/17 06:00 09:55 WBC RBC Hgb Hct MCV MCH MCHC RDW Plt Count MPV Absolute Neuts (auto) Neutrophils % Lymphocytes % Monocytes % Eosinophils % Basophils % Nucleated RBC % PT with INR INR PTT (Actin FS) Puncture Site Right brachial ABG pH 7.38 ABG pCO2 at Pt Temp 49.4 H ABG pO2 at Pt Temp 55.1 L ABG HCO3 28.6 H ABG O2 Sat (Measured) 86.4 L ABG O2 Content 12.8 L ABG Base Excess 3.3 H Izaiah Test Positive VBG pH POC VBG pCO2 POC VBG pO2 Mixed VBG HCO3 O2 Delivery Device Vent Oxygen Flow Rate 40 Vent Mode Vent Rate 16 Mechanical Rate PEEP 5.0 Pressure Support Vent Sodium 135 L Potassium 4.0 Chloride 97 L Carbon Dioxide 28 Anion Gap 10 BUN 20 H Creatinine 2.9 H Creat Clearance w eGFR 19.32 Random Glucose 486 H* Lactic Acid Calcium 9.0 Phosphorus Magnesium Total Bilirubin AST ALT Alkaline Phosphatase Creatine Kinase Troponin I Total Protein Albumin TSH Beta HCG, Quant 5.2 Alcohol, Quantitative Acetone, Qual Blood Type Antibody Screen Microbiology 10/23/17 12:31 Blood - Peripheral Venous Blood Culture - Preliminary NO GROWTH OBTAINED AFTER 24 HOURS, INCUBATION TO CONTINUE FOR 4 DAYS. 10/23/17 12:31 Blood - Peripheral Venous Blood Culture - Preliminary NO GROWTH OBTAINED AFTER 24 HOURS, INCUBATION TO CONTINUE FOR 4 DAYS. Imaging - Results Chest X-ray: Report Reviewed Problem List - Problems (1) Cardiac arrest Code(s): I46.9 - CARDIAC ARREST, CAUSE UNSPECIFIED (2) DKA (diabetic ketoacidoses) Code(s): E13.10 - OTH DIABETES MELLITUS WITH KETOACIDOSIS WITHOUT COMA Qualifiers: Diabetes mellitus type: type 1 Diabetes mellitus complication detail: with coma Qualified Code(s): E10.11 - Type 1 diabetes mellitus with ketoacidosis with coma (3) ESRD (end stage renal disease) on dialysis Code(s): N18.6 - END STAGE RENAL DISEASE; Z99.2 - DEPENDENCE ON RENAL DIALYSIS (4) Anemia Code(s): D64.9 - ANEMIA, UNSPECIFIED Qualifiers: Folate deficiency anemia type: dietary (5) Diabetes mellitus, insulin dependent (IDDM), uncontrolled Code(s): E10.65 - TYPE 1 DIABETES MELLITUS WITH HYPERGLYCEMIA (6) Diabetic foot ulcer Code(s): E11.621 - TYPE 2 DIABETES MELLITUS WITH FOOT ULCER; L97.509 - NON- PRESSURE CHRONIC ULCER OTH PRT UNSP FOOT W UNSP SEVERITY (7) HTN (hypertension) Code(s): I10 - ESSENTIAL (PRIMARY) HYPERTENSION Assessment/Plan Pt is a 27 y.o. female with IDDM, ESRD on HD, seizure d.o. PE, PVD, Atrial thrombosis, cardiac myxoma, currently on Cefazolin during HD for Rt foot infected plantar ulcer/OM, brought in by EMS after found initially unresponsive by mother and then pulseless necessitating CPR. Pt intubated in ER for hypoxia and obtundation. Antibiotics initiated while undergoing sepsis workup and other management. Cardiac arrest Acute respiratory failure s/p intubation Rt plantar foot ulcer/OM Uncontrolled IDDM ESRD on HD R/O Sepsis -- previous admission records reviewed -- pt now extubated, alert, afebrile -- continue Cefazolin post HD for now -- Blood cultures negative so far - f/u final results -- CXR results noted but pt appears to be asymptomatic for PNA -- continue wound care -- monitor temps/vitals closely -- cardiology following -- rest of care per ICU cc time: 60 min
--- NOTE | 2017-10-24 15:16 | EKG ---
Test Reason : Blood Pressure : / mmHG Vent. Rate : 096 BPM Atrial Rate : 096 BPM P-R Int : 194 ms QRS Dur : 082 ms QT Int : 386 ms P-R-T Axes : 032 033 -16 degrees QTc Int : 487 ms NORMAL SINUS RHYTHM POSSIBLE LEFT ATRIAL ENLARGEMENT PROLONGED QT ABNORMAL ECG WHEN COMPARED WITH ECG OF 17-SEP-2017 01:01, BORDERLINE CRITERIA FOR ANTERIOR INFARCT ARE NO LONGER PRESENT Confirmed by REBECCA KATHLEEN, OLIVA ([id number]) on 10/24/2017 3:16:21 PM Referred By: DINORAH Confirmed By:OLIVA FERNANDEZ MD
[2017-10-24] MEDS ORDERED: INSULIN SLIDING SCALE (NOVOLOG) 1 VIAL SQ SCH ×3 (16:30→22:00)
[2017-10-24] MEDS: LABETALOL HCL 200 MG TABLET (FP) PO SCH ×2 (17:31→21:09)
--- NOTE | 2017-10-24 21:06 | PN ---
Progress Note (short form) - Note Progress Note: iddm,esrd,sepsis,diabetic vascular disease Abnormal Lab Results 10/23/17 10/23/17 10/23/17 21:24 21:24 21:24 RBC 2.67 L Hgb 7.6 L Hct 24.2 L MCHC 31.3 L RDW 17.1 H Monocytes % 17.0 H ABG pCO2 at Pt Temp ABG pO2 at Pt Temp ABG HCO3 ABG O2 Sat (Measured) ABG O2 Content ABG Base Excess Sodium Potassium 3.1 L Chloride Carbon Dioxide 19 L BUN 41 H Creatinine 4.2 H Random Glucose 376 H* Lactic Acid 3.3 H* Calcium 15.5 H* Phosphorus AST 302 H Alkaline Phosphatase 1332 H D Total Protein 6.2 L Albumin 2.9 L 10/24/17 10/24/17 10/24/17 02:30 02:30 02:30 RBC 3.23 L Hgb 9.2 L Hct 28.0 L D MCHC RDW 17.2 H Monocytes % ABG pCO2 at Pt Temp ABG pO2 at Pt Temp ABG HCO3 ABG O2 Sat (Measured) ABG O2 Content ABG Base Excess Sodium Potassium 3.4 L Chloride Carbon Dioxide BUN Creatinine 2.0 H Random Glucose 124 H Lactic Acid 2.1 H Calcium Phosphorus 2.1 L AST 279 H Alkaline Phosphatase 1597 H D Total Protein Albumin 10/24/17 10/24/17 10/24/17 03:20 05:30 05:30 RBC 2.98 L Hgb 8.6 L Hct 25.8 L MCHC RDW 17.5 H Monocytes % 15.6 H ABG pCO2 at Pt Temp 46.9 H ABG pO2 at Pt Temp 52.6 L D ABG HCO3 29.3 H ABG O2 Sat (Measured) 86.0 L ABG O2 Content 10.5 L ABG Base Excess 4.6 H Sodium Potassium 3.3 L Chloride Carbon Dioxide BUN Creatinine 2.4 H Random Glucose 148 H Lactic Acid Calcium Phosphorus AST 199 H Alkaline Phosphatase 1421 H D Total Protein Albumin 3.1 L 10/24/17 10/24/17 06:00 09:55 RBC Hgb Hct MCHC RDW Monocytes % ABG pCO2 at Pt Temp 49.4 H ABG pO2 at Pt Temp 55.1 L ABG HCO3 28.6 H ABG O2 Sat (Measured) 86.4 L ABG O2 Content 12.8 L ABG Base Excess 3.3 H Sodium 135 L Potassium Chloride 97 L Carbon Dioxide BUN 20 H Creatinine 2.9 H Random Glucose 486 H* Lactic Acid Calcium Phosphorus AST Alkaline Phosphatase Total Protein Albumin Laboratory Results - last 24 hr 10/23/17 10/23/17 10/23/17 21:24 21:24 21:24 WBC 6.3 RBC 2.67 L Hgb 7.6 L Hct 24.2 L MCV 90.8 MCH 28.4 MCHC 31.3 L RDW 17.1 H Plt Count 214 MPV 9.9 Absolute Neuts (auto) 4.2 Neutrophils % 67.2 Lymphocytes % 14.9 D Monocytes % 17.0 H Eosinophils % 0.3 D Basophils % 0.6 Nucleated RBC % 0 Puncture Site ABG pH ABG pCO2 at Pt Temp ABG pO2 at Pt Temp ABG HCO3 ABG O2 Sat (Measured) ABG O2 Content ABG Base Excess Izaiah Test O2 Delivery Device Oxygen Flow Rate Vent Mode Vent Rate Mechanical Rate PEEP Pressure Support Vent Sodium 139 Potassium 3.1 L Chloride 104 Carbon Dioxide 19 L Anion Gap 16 BUN 41 H Creatinine 4.2 H Creat Clearance w eGFR 12.60 Random Glucose 376 H* Lactic Acid Calcium 15.5 H* Phosphorus 4.3 Magnesium 1.8 Total Bilirubin 0.5 AST 302 H ALT 61 Alkaline Phosphatase 1332 H D Creatine Kinase Troponin I Total Protein 6.2 L Albumin 2.9 L TSH 2.54 Beta HCG, Quant Blood Type Antibody Screen 10/23/17 10/24/17 10/24/17 21:24 02:30 02:30 WBC 7.1 RBC 3.23 L Hgb 9.2 L Hct 28.0 L D MCV 86.5 MCH 28.4 MCHC 32.8 RDW 17.2 H Plt Count 257 D MPV 9.6 Absolute Neuts (auto) Neutrophils % Lymphocytes % Monocytes % Eosinophils % Basophils % Nucleated RBC % Puncture Site ABG pH ABG pCO2 at Pt Temp ABG pO2 at Pt Temp ABG HCO3 ABG O2 Sat (Measured) ABG O2 Content ABG Base Excess Izaiah Test O2 Delivery Device Oxygen Flow Rate Vent Mode Vent Rate Mechanical Rate PEEP Pressure Support Vent Sodium 138 Potassium 3.4 L Chloride 99 Carbon Dioxide 31 Anion Gap 8 BUN 15 D Creatinine 2.0 H Creat Clearance w eGFR 29.67 Random Glucose 124 H Lactic Acid 3.3 H* Calcium 9.4 Phosphorus 2.1 L Magnesium 1.9 Total Bilirubin 0.6 AST 279 H ALT 57 Alkaline Phosphatase 1597 H D Creatine Kinase Troponin I Total Protein 7.8 Albumin 3.5 TSH Beta HCG, Quant Blood Type Antibody Screen 10/24/17 10/24/17 10/24/17 02:30 02:30 03:20 WBC RBC Hgb Hct MCV MCH MCHC RDW Plt Count MPV Absolute Neuts (auto) Neutrophils % Lymphocytes % Monocytes % Eosinophils % Basophils % Nucleated RBC % Puncture Site Right brachial ABG pH 7.41 D ABG pCO2 at Pt Temp 46.9 H ABG pO2 at Pt Temp 52.6 L D ABG HCO3 29.3 H ABG O2 Sat (Measured) 86.0 L ABG O2 Content 10.5 L ABG Base Excess 4.6 H Izaiah Test Positive O2 Delivery Device Mech vent Oxygen Flow Rate 40 Vent Mode A/c Vent Rate 16 Mechanical Rate Yes PEEP 5.0 Pressure Support Vent 425 Sodium Potassium Chloride Carbon Dioxide Anion Gap BUN Creatinine Creat Clearance w eGFR Random Glucose Lactic Acid 2.1 H Calcium Phosphorus Magnesium Total Bilirubin AST ALT Alkaline Phosphatase Creatine Kinase Troponin I Total Protein Albumin TSH Beta HCG, Quant Blood Type B POSITIVE Antibody Screen Negative 10/24/17 10/24/17 10/24/17 03:40 05:30 05:30 WBC 7.7 RBC 2.98 L Hgb 8.6 L Hct 25.8 L MCV 86.6 MCH 28.8 MCHC 33.3 RDW 17.5 H Plt Count 216 MPV 9.1 Absolute Neuts (auto) 5.2 Neutrophils % 67.5 Lymphocytes % 14.2 Monocytes % 15.6 H Eosinophils % 2.0 D Basophils % 0.7 Nucleated RBC % 0 Puncture Site ABG pH ABG pCO2 at Pt Temp ABG pO2 at Pt Temp ABG HCO3 ABG O2 Sat (Measured) ABG O2 Content ABG Base Excess Izaiah Test O2 Delivery Device Oxygen Flow Rate Vent Mode Vent Rate Mechanical Rate PEEP Pressure Support Vent Sodium 140 Potassium 3.3 L Chloride 101 Carbon Dioxide 28 Anion Gap 11 BUN 17 Creatinine 2.4 H Creat Clearance w eGFR 24.04 Random Glucose 148 H Lactic Acid Calcium 9.1 Phosphorus 3.3 Magnesium 1.9 Total Bilirubin 0.5 AST 199 H ALT 43 Alkaline Phosphatase 1421 H D Creatine Kinase 99 Troponin I 0.05 Total Protein 6.9 Albumin 3.1 L TSH Beta HCG, Quant Blood Type Antibody Screen 10/24/17 10/24/17 06:00 09:55 WBC RBC Hgb Hct MCV MCH MCHC RDW Plt Count MPV Absolute Neuts (auto) Neutrophils % Lymphocytes % Monocytes % Eosinophils % Basophils % Nucleated RBC % Puncture Site Right brachial ABG pH 7.38 ABG pCO2 at Pt Temp 49.4 H ABG pO2 at Pt Temp 55.1 L ABG HCO3 28.6 H ABG O2 Sat (Measured) 86.4 L ABG O2 Content 12.8 L ABG Base Excess 3.3 H Izaiah Test Positive O2 Delivery Device Vent Oxygen Flow Rate 40 Vent Mode Vent Rate 16 Mechanical Rate PEEP 5.0 Pressure Support Vent Sodium 135 L Potassium 4.0 Chloride 97 L Carbon Dioxide 28 Anion Gap 10 BUN 20 H Creatinine 2.9 H Creat Clearance w eGFR 19.32 Random Glucose 486 H* Lactic Acid Calcium 9.0 Phosphorus Magnesium Total Bilirubin AST ALT Alkaline Phosphatase Creatine Kinase Troponin I Total Protein Albumin TSH Beta HCG, Quant 5.2 Blood Type Antibody Screen sp dka Current Active Problems Airway intubation performed without difficulty (Acute) Cardiac arrest (Acute) DKA (diabetic ketoacidoses) (Acute) High anion gap metabolic acidosis (Acute) Pneumonia (Acute) ESRD (end stage renal disease) on dialysis (Chronic) plan: levemir 15 units bid bgm q 4 to adjust brittle nature Problem List - Problems (1) Airway intubation performed without difficulty Code(s): Z78.9 - OTHER SPECIFIED HEALTH STATUS (2) DKA (diabetic ketoacidoses) Code(s): E13.10 - OTH DIABETES MELLITUS WITH KETOACIDOSIS WITHOUT COMA Qualifiers: Diabetes mellitus type: type 1 Diabetes mellitus complication detail: with coma Qualified Code(s): E10.11 - Type 1 diabetes mellitus with ketoacidosis with coma (3) High anion gap metabolic acidosis Code(s): E87.2 - ACIDOSIS (4) Anemia Code(s): D64.9 - ANEMIA, UNSPECIFIED Qualifiers: Folate deficiency anemia type: dietary (5) Chronic GERD Code(s): K21.9 - GASTRO-ESOPHAGEAL REFLUX DISEASE WITHOUT ESOPHAGITIS (6) Diabetes mellitus, insulin dependent (IDDM), uncontrolled Code(s): E10.65 - TYPE 1 DIABETES MELLITUS WITH HYPERGLYCEMIA (7) Diabetic foot ulcer Code(s): E11.621 - TYPE 2 DIABETES MELLITUS WITH FOOT ULCER; L97.509 - NON- PRESSURE CHRONIC ULCER OTH PRT UNSP FOOT W UNSP SEVERITY
[2017-10-24] MEDS: INSULIN (LEVEMIR) 100 UNITS/ML UNITS SQ SCH (21:30)
[2017-10-25] MEDS ORDERED: morphine CARPU-JECT 2 MG/1 ML DISP.SYRIN IVPUSH ONE (01:14)
[2017-10-25] MEDS: INSULIN SLIDING SCALE (NOVOLOG) 1 VIAL SQ SCH ×6 (01:52→21:59)
[2017-10-25] MEDS: HEPARIN NA (PORCINE) 5,000 UNITS/ML 1ML VIAL SQ SCH ×3 (05:32→21:52)
[2017-10-25] MEDS: LABETALOL HCL 200 MG TABLET (FP) PO SCH ×3 (05:32→21:51)
[2017-10-25] MEDS: cloNIDine HCL 0.1 MG TABLET PO SCH ×3 (05:32→21:52)
[2017-10-25] MEDS: hydrALAZINE HCL 50 MG TABLET (FP) PO SCH ×3 (05:32→21:52)
[2017-10-25] MEDS: INSULIN (LEVEMIR) 100 UNITS/ML UNITS SQ SCH ×2 (06:03→21:52)
[2017-10-25] MEDS ORDERED: SODIUM CHLORIDE 250 ML IV PRN (06:24)
[2017-10-25] MEDS ORDERED: CEFAZOLIN 2 GM/D5W 2 GM/50 ML ML IVPB ONE (06:30)
[2017-10-25] MEDS ORDERED: EPOETIN ALFA 20,000 UNIT/1 ML VIAL IVPUSH ONE (06:30)
[2017-10-25] MEDS ORDERED: ALBUMIN HUMAN 25% 12.5 GM/50 ML VIAL IVPB SCH (06:30)
[2017-10-25 07:31] LABS: HEMATOCRIT 25.2 % (32.4-45.2); HEMOGLOBIN 8.2 GM/dL (10.7-15.3); MCH 28.3 pg (25.7-33.7); MCHC 32.4 g/dl (32.0-36.0); MEAN CELL VOLUME 87.3 fl (80-96); MEAN PLT VOLUME 9.8 fl (7.5-11.1); PLATELET COUNT 227 K/MM3 (134-434); RBC 2.88 M/mm3 (3.60-5.2); RDW 17.5 % (11.6-15.6); WHITE BLOOD COUNT 8.5 K/mm3 (4.0-10.0)
[2017-10-25 07:39] LABS: ALBUMIN 2.9 g/dl (3.4-5.0); ANION GAP 9 (8-16); BILIRUBIN,TOTAL 0.5 mg/dL (0.2-1.0); BLOOD UREA NITROGEN 31 mg/dL (7-18); CALCIUM 7.8 mg/dL (8.5-10.1); CHLORIDE 102 mmol/L (98-107); CO2 29 mmol/L (21-32); CREATININE 4.1 mg/dL (0.55-1.02); GLUCOSE,RANDOM 51 mg/dL (74-106); PHOSPHOROUS 5.3 mg/dL (2.5-4.9); SGOT/AST 74 U/L (15-37); SGPT/ALT 25 U/L (12-78); SODIUM 140 mmol/L (136-145); TOT PROT 6.4 g/dl (6.4-8.2)
[2017-10-25 07:53] LABS: ALK PHOS 1181 U/L (45-117)
[2017-10-25] MEDS ORDERED: ceFAZolin 2 GRAM PREMIX BAG IVPB ONE (08:00)
--- NOTE | 2017-10-25 11:03 | PN ---
Progress Note (short form) - Note Progress Note: Renal follow up for ESRD on Hd Pt seen and examined in the ICU awake and alert complains of diffuse body pain no sob, chest pain, N/V/D currently getting dialysis, goal UF is 4L BP stable, received antihypertensive meds this am CTA negative for PE yesterday Vital Signs Temperature 98.5 F 10/25/17 06:55 Pulse Rate 85 10/25/17 10:30 Respiratory Rate 18 10/25/17 10:30 Blood Pressure 134/74 10/25/17 10:30 O2 Sat by Pulse Oximetry (%) 100 10/24/17 23:24 Intake & Output 10/22/17 10/23/17 10/24/17 10/25/17 23:59 23:59 23:59 23:59 Intake Total 475 1019 400 Output Total 300 Balance 475 719 400 Weight 70.7 kg 70.2 kg 69.1 kg NAD awake and alert RRR, No M/R Dec BS, no rales soft NT.ND + edema in LE, no cyanoiss extremities are warm CBC, BMP 10/25/17 05:30 10/25/17 05:30 Laboratory Tests 06/04/17 06/22/17 10/25/17 05:55 08:11 05:30 Calcium 7.7 L 7.8 L Phosphorus 5.2 H 4.6 5.3 H Magnesium 2.0 1.8 Albumin 2.9 L Current Medications Albumin Human (Albumin Human 25%) 12.5 gm IVPB Q30M [facility] Clonidine (Catapres -) 0.3 mg PO TID [facility] Last Admin: 10/25/17 05:32 Dose: 0.3 mg Heparin Sodium (Porcine) (Heparin -) 5,000 unit SQ TID [facility] Last Admin: 10/25/17 05:32 Dose: 5,000 unit Hydralazine HCl (Apresoline -) 100 mg PO TID [facility] Last Admin: 10/25/17 05:32 Dose: 100 mg Sodium Chloride (Normal Saline -) 250 mls @ 3,000 mls/hr IV PRN PRN PRN Reason: Hypotension during Dialysis Insulin Aspart (Novolog Vial Sliding Scale -) 1 vial SQ Q4HPO [facility]; Protocol Last Admin: 10/25/17 06:03 Dose: Not Given Insulin Detemir (Levemir Vial) 15 units SQ BID@0700,2200 [facility] Last Admin: 10/25/17 06:03 Dose: Not Given Labetalol HCl (Normodyne -) 500 mg PO TID [facility] Last Admin: 10/25/17 05:32 Dose: 500 mg Losartan Potassium (Cozaar -) 100 mg PO DAILY [facility] Last Admin: 10/24/17 11:59 Dose: 100 mg Nifedipine (Procardia Xl -) 90 mg PO DAILY [facility] 27 year old AA woman with PMhx of ESRD on HD (secondary to DM), IDDM, Hypertension, PVD, Atrial thrombus who presented via EMS with AMS/ Unresponsiveness at home with cardiac arrest requiring CPR in the field. #Cardiac Arrest #Hyperglycemia/DKA #Lactic Acidosis #Hyperkalemia #ESRD on HD #Chronic Anemia #Recently diagnosed Osteomylitis tolerating dialysis well today with 4L UF goal electrolytes are WNL CTA negative for PE blood sugars are better controlled, continue insulin as per Endocrine will continue MACIE with dialysis, no acute indication for transfusion Fluid restriction, renal diet ICU monitoring Cardiology follow up will continue Ancef post dialysis as per ID recs Nathan Vo DO
[2017-10-25] MEDS: LOSARTAN POTASSIUM 50 MG TABLET (FP) PO SCH (11:14)
[2017-10-25] MEDS: NIFEdipine E.R. 90 MG TABLET (FP) PO SCH (11:14)
[2017-10-25 14:13] LABS: HBSAG SCREEN Negative (Negative); HEP B CORE AB, TOT Negative (Negative)
--- NOTE | 2017-10-25 14:17 | ECHO ---
Name: NÉSTOR SINGHWILLIAN Exam:Adult Echocardiogram Study Date: 10/25/2017 12:28 PM Age: 27 yrs Reason For Study: S/P CARDIAC ARREST Height: 66 in Weight: 155 lb BSA: 1.8 m2 MMode/2D Measurements & Calculations IVSd: 1.2 cm LA dimension: 2.8 cm LVIDd: 4.8 cm LVIDs: 2.6 cm LVPWd: 1.1 cm LVPWs: 1.9 cm EDV(Teich): 109.7 ml ESV(Teich): 25.7 ml LVOT diam: 2.8 cm Doppler Measurements & Calculations MV E max pawel: 90.3 cm/sec LV V1 max P.7 mmHg MV A max pawel: 67.1 cm/sec LV V1 max: 178.2 cm/sec MV E/A: 1.3 MV dec time: 0.17 sec TR max pawel: 289.2 cm/sec PA V2 max: 131.7 cm/sec TR max P.7 mmHg PA max P.9 mmHg PA acc slope: 416.5 cm/sec2 PA acc time: 0.31 sec Med Peak E' Pawel: 7.2 cm/sec PA pr(Accel): -58.8 mmHg Med E/e': 12.5 Lat Peak E' Pawel: 9.2 cm/sec Lat E/e': 9.8 Procedure A two-dimensional transthoracic echocardiogram with color flow and Doppler was performed. Left Ventricle There is mild concentric left ventricular hypertrophy. The left ventricular ejection fraction is norm al. Left Ventricular Filling pattern is normal for age. The left ventricular wall motion is normal. Right Ventricle The right ventricle is normal in size and function. Atria Normal left and right atrial size and function. The atrial septum is aneurysmal without evidence of s hunting. Mitral Valve There is mild mitral valve thickening. There is no mitral valve stenosis. There is trace mitral regur gitation. Tricuspid Valve There is mild tricuspid valve thickening. There is no tricuspid stenosis. There is mild to moderate t ricuspid regurgitation. Right ventricular systolic pressure is elevated at 40-50mmHg. Aortic Valve The aortic valve is trileaflet. There is mild aortic valve thickening. There is mild aortic sclerosis .;. No hemodynamically significant valvular aortic stenosis. No aortic regurgitation is present. Pulmonic Valve The pulmonic valve is not well visualized. There is no pulmonic valvular stenosis. Mild pulmonic valv ular regurgitation. Interpretation Summary The left ventricular ejection fraction is normal. There is mild concentric left ventricular hypertrophy. The left ventricular wall motion is normal. Mild pulmonic valvular regurgitation. There is mild aortic valve thickening. The aortic valve is trileaflet. There is mild aortic sclerosis.; Left Ventricular Filling pattern is normal for age. There is trace mitral regurgitation. The atrial septum is aneurysmal without evidence of shunting There is mild to moderate tricuspid regurgitation. Right ventricular systolic pressure is elevated at 40-50mmHg. MD Jaya Rodriguez 10/25/2017 02:17 PM
[2017-10-25] MEDS ORDERED: LABETALOL HCL 100 MG TABLET (FP) ONE (14:37)
--- NOTE | 2017-10-25 15:39 | PN ---
Progress Note, Physician History of Present Illness: seen and examined today in nad with family at bedside. pt states she is feeling better. admits that she hasnt been taking her insulin for several days at time. no chest pain or sob. - Current Medication List Current Medications: Active Medications Albumin Human (Albumin Human 25%) 12.5 gm IVPB Q30M [facility] Clonidine (Catapres -) 0.3 mg PO TID [facility] Last Admin: 10/25/17 14:43 Dose: 0.3 mg Heparin Sodium (Porcine) (Heparin -) 5,000 unit SQ TID [facility] Last Admin: 10/25/17 14:44 Dose: 5,000 unit Hydralazine HCl (Apresoline -) 100 mg PO TID [facility] Last Admin: 10/25/17 14:43 Dose: 100 mg Sodium Chloride (Normal Saline -) 250 mls @ 3,000 mls/hr IV PRN PRN PRN Reason: Hypotension during Dialysis Insulin Aspart (Novolog Vial Sliding Scale -) 1 vial SQ Q4HPO [facility]; Protocol Last Admin: 10/25/17 14:33 Dose: 3 units Insulin Detemir (Levemir Vial) 15 units SQ BID@0700,2200 [facility] Last Admin: 10/25/17 06:03 Dose: Not Given Labetalol HCl (Normodyne -) 500 mg PO TID [facility] Last Admin: 10/25/17 14:43 Dose: 500 mg Losartan Potassium (Cozaar -) 100 mg PO DAILY [facility] Last Admin: 10/25/17 11:14 Dose: 100 mg Nifedipine (Procardia Xl -) 90 mg PO DAILY [facility] Last Admin: 10/25/17 11:14 Dose: 90 mg - Objective Vital Signs: Vital Signs Temperature 98.3 F 10/25/17 12:00 Pulse Rate 91 H 10/25/17 14:00 Respiratory Rate 16 10/25/17 14:00 Blood Pressure 131/67 10/25/17 14:00 O2 Sat by Pulse Oximetry (%) 100 10/24/17 23:24 Constitutional: Yes: No Distress, Calm Eyes: Yes: Conjunctiva Clear, EOM Intact HENT: Yes: Atraumatic, Normocephalic Neck: Yes: Supple, Trachea Midline Cardiovascular: Yes: Regular Rate and Rhythm, S1, S2. No: Bradycardia, Tachycardia, Pulse Irregular, Bruit, JVD, Gallop, Murmur, S3, S4, Varicosities Respiratory: Yes: Regular, CTA Bilaterally. No: Rales, Rhonchi, SOB, Wheezes Gastrointestinal: Yes: Normal Bowel Sounds, Soft. No: Distention, Tenderness Musculoskeletal: Yes: WNL Extremities: Yes: WNL Edema: No Peripheral Pulses WNL: Yes Neurological: Yes: Alert, Oriented Psychiatric: Yes: Alert, Oriented Labs: CBC, BMP 10/25/17 05:30 10/25/17 05:30 INR, PTT INR 1.13 (0.82-1.09) 10/23/17 12:25 - ....Imaging Chest X-ray: Report Reviewed, Image Reviewed EKG: Report Reviewed, Image Reviewed Other: Report Reviewed, Image Reviewed (tele-nsr, no arrhythmias) Assessment/Plan 27 year old female with a pmhx of IDDM, htn, pvd, ESRD on HD, and h/o pe/dvt presenting after cardiac arrest at home. Patient was found unresponsive at home s/p CPR in field and intubated in ER. Found to have glucose 1200 and LA 3.3. CE's negative. EKG sinus rhythm with no ischemic changes, borderline qt. S/p emergent dialysis and insulin drip. Self extubated this am and on FiO2 at this time. Patient does not recall event. No f/c/s. No h/o chest pain except some chest wall tenderness. CTA no PE. 1) Cardiopulmonary arrest -Possibly due to hyperglycemia and electrolyte abnormalities. Unlikely cardiac in origin. EKG with no ischemic changes. CE's negative. CTA chest showed no PE No arrhythmias seen on tele -ECHO 10/25/17 showed normal LV systolic function, normal RV size and function, mild to mod TR, mild aortic sclerosis, mild PAH, no pericardial effusion -Endocrine following for DM management -On abx as per ICU team -titrate meds for HTN control No additional inpatient cardiac work up needed at this time. Please call with any additional questions
--- NOTE | 2017-10-25 15:42 | PN ---
Teaching Attending Note Name of Resident: Keaton Mcwilliams ATTENDING PHYSICIAN STATEMENT I saw and evaluated the patient. I reviewed the resident's note and discussed the case with the resident. I agree with the resident's findings and plan as documented. SUBJECTIVE: Patient seen and examined in the ICU. Remains extubated. Awake and alert. Currently on acute HD. Intake & Output 10/22/17 10/23/17 10/24/17 10/25/17 23:59 23:59 23:59 23:59 Intake Total 475 1019 400 Output Total 300 Balance 475 719 400 Weight 155 lb 13.869 oz 154 lb 12.232 oz 152 lb Last Vital Signs Temp Pulse Resp BP Pulse Ox 98.3 F 91 H 16 131/67 100 10/25/17 12:00 10/25/17 14:00 10/25/17 14:00 10/25/17 14:00 10/24/17 23:24 Active Medications Albumin Human (Albumin Human 25%) 12.5 gm IVPB Q30M [facility] Clonidine (Catapres -) 0.3 mg PO TID [facility] Last Admin: 10/25/17 14:43 Dose: 0.3 mg Heparin Sodium (Porcine) (Heparin -) 5,000 unit SQ TID [facility] Last Admin: 10/25/17 14:44 Dose: 5,000 unit Hydralazine HCl (Apresoline -) 100 mg PO TID [facility] Last Admin: 10/25/17 14:43 Dose: 100 mg Sodium Chloride (Normal Saline -) 250 mls @ 3,000 mls/hr IV PRN PRN PRN Reason: Hypotension during Dialysis Insulin Aspart (Novolog Vial Sliding Scale -) 1 vial SQ Q4HPO [facility]; Protocol Last Admin: 10/25/17 14:33 Dose: 3 units Insulin Detemir (Levemir Vial) 15 units SQ BID@0700,2200 [facility] Last Admin: 10/25/17 06:03 Dose: Not Given Labetalol HCl (Normodyne -) 500 mg PO TID [facility] Last Admin: 10/25/17 14:43 Dose: 500 mg Losartan Potassium (Cozaar -) 100 mg PO DAILY [facility] Last Admin: 10/25/17 11:14 Dose: 100 mg Nifedipine (Procardia Xl -) 90 mg PO DAILY [facility] Last Admin: 10/25/17 11:14 Dose: 90 mg Gen: NAD on NC O2 Heart: S1S2, regular Lung: Clear, decreased breath sounds at the bases Abd: soft, nontender Ext: no edema Laboratory Results - last 24 hr 10/23/17 10/23/17 10/23/17 18:54 21:09 22:58 WBC RBC Hgb Hct MCV MCH MCHC RDW Plt Count MPV Sodium Potassium Chloride Carbon Dioxide Anion Gap BUN Creatinine Creat Clearance w eGFR POC Glucometer > 400 > 400 242.17338 Random Glucose Hemoglobin A1c % Calcium Phosphorus Magnesium Total Bilirubin AST ALT Alkaline Phosphatase Total Protein Albumin Hepatitis A Ab Total Hep Bs Antigen Hep Bs Antibody Hep B Core Total Ab 10/23/17 10/24/17 10/24/17 23:54 00:56 02:01 WBC RBC Hgb Hct MCV MCH MCHC RDW Plt Count MPV Sodium Potassium Chloride Carbon Dioxide Anion Gap BUN Creatinine Creat Clearance w eGFR POC Glucometer 143.85469 129.67380 98.19088 Random Glucose Hemoglobin A1c % Calcium Phosphorus Magnesium Total Bilirubin AST ALT Alkaline Phosphatase Total Protein Albumin Hepatitis A Ab Total Hep Bs Antigen Hep Bs Antibody Hep B Core Total Ab 10/24/17 10/24/17 10/24/17 02:30 02:56 03:58 WBC RBC Hgb Hct MCV MCH MCHC RDW Plt Count MPV Sodium Potassium Chloride Carbon Dioxide Anion Gap BUN Creatinine Creat Clearance w eGFR POC Glucometer 192.68766 218.13117 Random Glucose Hemoglobin A1c % Calcium Phosphorus Magnesium Total Bilirubin AST ALT Alkaline Phosphatase Total Protein Albumin Hepatitis A Ab Total Negative Hep Bs Antigen Negative Hep Bs Antibody Reactive Hep B Core Total Ab Negative 10/24/17 10/24/17 10/24/17 05:28 06:45 07:17 WBC RBC Hgb Hct MCV MCH MCHC RDW Plt Count MPV Sodium Potassium Chloride Carbon Dioxide Anion Gap BUN Creatinine Creat Clearance w eGFR POC Glucometer 176.24660 132.89036 131.63953 Random Glucose Hemoglobin A1c % Calcium Phosphorus Magnesium Total Bilirubin AST ALT Alkaline Phosphatase Total Protein Albumin Hepatitis A Ab Total Hep Bs Antigen Hep Bs Antibody Hep B Core Total Ab 10/24/17 10/24/17 10/24/17 09:25 09:27 11:40 WBC RBC Hgb Hct MCV MCH MCHC RDW Plt Count MPV Sodium Potassium Chloride Carbon Dioxide Anion Gap BUN Creatinine Creat Clearance w eGFR POC Glucometer > 400 > 400 > 400 Random Glucose Hemoglobin A1c % Calcium Phosphorus Magnesium Total Bilirubin AST ALT Alkaline Phosphatase Total Protein Albumin Hepatitis A Ab Total Hep Bs Antigen Hep Bs Antibody Hep B Core Total Ab 10/24/17 10/24/17 10/24/17 13:14 16:45 21:16 WBC RBC Hgb Hct MCV MCH MCHC RDW Plt Count MPV Sodium Potassium Chloride Carbon Dioxide Anion Gap BUN Creatinine Creat Clearance w eGFR POC Glucometer > 400 336.05888 169.22362 Random Glucose Hemoglobin A1c % Calcium Phosphorus Magnesium Total Bilirubin AST ALT Alkaline Phosphatase Total Protein Albumin Hepatitis A Ab Total Hep Bs Antigen Hep Bs Antibody Hep B Core Total Ab 10/25/17 10/25/17 10/25/17 05:30 05:30 05:30 WBC 8.5 RBC 2.88 L Hgb 8.2 L Hct 25.2 L MCV 87.3 MCH 28.3 MCHC 32.4 RDW 17.5 H Plt Count 227 MPV 9.8 Sodium 140 Cancelled Potassium 4.0 Cancelled Chloride 102 Cancelled Carbon Dioxide 29 Cancelled Anion Gap 9 Cancelled BUN 31 H Cancelled Creatinine 4.1 H Cancelled Creat Clearance w eGFR 12.96 Cancelled POC Glucometer Random Glucose 51 L Cancelled Hemoglobin A1c % Calcium 7.8 L Cancelled Phosphorus 5.3 H Cancelled Magnesium 2.0 Total Bilirubin 0.5 Cancelled AST 74 H Cancelled ALT 25 Cancelled Alkaline Phosphatase 1181 H D Cancelled Total Protein 6.4 Cancelled Albumin 2.9 L Cancelled Hepatitis A Ab Total Hep Bs Antigen Hep Bs Antibody Hep B Core Total Ab 10/25/17 08:30 WBC RBC Hgb Hct MCV MCH MCHC RDW Plt Count MPV Sodium Potassium Chloride Carbon Dioxide Anion Gap BUN Creatinine Creat Clearance w eGFR POC Glucometer Random Glucose Hemoglobin A1c % 13.1 H Calcium Phosphorus Magnesium Total Bilirubin AST ALT Alkaline Phosphatase Total Protein Albumin Hepatitis A Ab Total Hep Bs Antigen Hep Bs Antibody Hep B Core Total Ab ASSESSMENT AND PLAN: S/P Cardiopulmonary Arrest HHNK/DKA overlap Lactic Acidosis ESRD on HD Anemia HTN Seizure Disorder h/o PE - O2 to keep Spo2 >90% - glucose control - HD per renal - PO as tolerated - ABX coverage - DVT prophylaxis - Cardiac Telemetry monitoring Dr Ballesteros Critical care time spent in reviewing chart, evaluating patient and formulating plan 35 min
[2017-10-25] MEDS ORDERED: oxyCODONE HCL 10 MG SUSTAINED ACTING TABLET PO PRN (15:47)
--- NOTE | 2017-10-25 16:08 | PN ---
Progress Note, Physician History of Present Illness: events noted currently extubated and stable tired and weak - Current Medication List Current Medications: Active Medications Albumin Human (Albumin Human 25%) 12.5 gm IVPB Q30M [facility] Clonidine (Catapres -) 0.3 mg PO TID [facility] Last Admin: 10/25/17 14:43 Dose: 0.3 mg Heparin Sodium (Porcine) (Heparin -) 5,000 unit SQ TID [facility] Last Admin: 10/25/17 14:44 Dose: 5,000 unit Hydralazine HCl (Apresoline -) 100 mg PO TID [facility] Last Admin: 10/25/17 14:43 Dose: 100 mg Sodium Chloride (Normal Saline -) 250 mls @ 3,000 mls/hr IV PRN PRN PRN Reason: Hypotension during Dialysis Insulin Aspart (Novolog Vial Sliding Scale -) 1 vial SQ Q4HPO [facility]; Protocol Last Admin: 10/25/17 14:33 Dose: 3 units Insulin Detemir (Levemir Vial) 15 units SQ BID@0700,2200 [facility] Last Admin: 10/25/17 06:03 Dose: Not Given Labetalol HCl (Normodyne -) 500 mg PO TID [facility] Last Admin: 10/25/17 14:43 Dose: 500 mg Losartan Potassium (Cozaar -) 100 mg PO DAILY [facility] Last Admin: 10/25/17 11:14 Dose: 100 mg Nifedipine (Procardia Xl -) 90 mg PO DAILY [facility] Last Admin: 10/25/17 11:14 Dose: 90 mg Oxycodone HCl (Oxycontin -) 10 mg PO Q6H PRN PRN Reason: PAIN LEVEL 6-10 - Objective Vital Signs: Vital Signs Temperature 98.3 F 10/25/17 12:00 Pulse Rate 91 H 10/25/17 14:00 Respiratory Rate 16 10/25/17 14:00 Blood Pressure 131/67 10/25/17 14:00 O2 Sat by Pulse Oximetry (%) 100 10/24/17 23:24 Constitutional: Yes: No Distress, Calm, Other (weak) Cardiovascular: Yes: Regular Rate and Rhythm Respiratory: Yes: Poor Air Entry, Rhonchi Gastrointestinal: Yes: Normal Bowel Sounds, Soft Musculoskeletal: Yes: WNL Extremities: Yes: Other Wound/Incision: Yes: Dressing Dry and Intact Neurological: Yes: Alert, Oriented Psychiatric: Yes: Alert, Oriented Labs: CBC, BMP 10/25/17 05:30 10/25/17 05:30 INR, PTT INR 1.13 (0.82-1.09) 10/23/17 12:25 Assessment/Plan Problem List - Problems (1) Cardiac arrest Code(s): I46.9 - CARDIAC ARREST, CAUSE UNSPECIFIED (2) DKA (diabetic ketoacidoses) Code(s): E13.10 - OTH DIABETES MELLITUS WITH KETOACIDOSIS WITHOUT COMA Qualifiers: Diabetes mellitus type: type 1 Diabetes mellitus complication detail: with coma Qualified Code(s): E10.11 - Type 1 diabetes mellitus with ketoacidosis with coma (3) ESRD (end stage renal disease) on dialysis Code(s): N18.6 - END STAGE RENAL DISEASE; Z99.2 - DEPENDENCE ON RENAL DIALYSIS (4) Anemia Code(s): D64.9 - ANEMIA, UNSPECIFIED Qualifiers: Folate deficiency anemia type: dietary (5) Diabetes mellitus, insulin dependent (IDDM), uncontrolled Code(s): E10.65 - TYPE 1 DIABETES MELLITUS WITH HYPERGLYCEMIA (6) Diabetic foot ulcer Code(s): E11.621 - TYPE 2 DIABETES MELLITUS WITH FOOT ULCER; L97.509 - NON- PRESSURE CHRONIC ULCER OTH PRT UNSP FOOT W UNSP SEVERITY (7) HTN (hypertension) Code(s): I10 - ESSENTIAL (PRIMARY) HYPERTENSION Assessment/Plan Pt is a 27 y.o. female with IDDM, ESRD on HD, seizure d.o. PE, PVD, Atrial thrombosis, cardiac myxoma, currently on Cefazolin during HD for Rt foot infected plantar ulcer/OM, brought in by EMS after found initially unresponsive by mother and then pulseless necessitating CPR. Pt intubated in ER for hypoxia and obtundation. Antibiotics initiated while undergoing sepsis workup and other management. continue abx as before all cx negative resp status rest as per icu cc time 40 min
--- NOTE | 2017-10-25 16:58 | PN ---
Progress Note, Physician Chief Complaint: PATIENT SEEN IN ICU FAMILY BEDSIDE ALL QUESTIONS ANSWERED EVENTS AND NOTES REVIEWED - Current Medication List Current Medications: Active Medications Albumin Human (Albumin Human 25%) 12.5 gm IVPB Q30M [facility] Clonidine (Catapres -) 0.3 mg PO TID [facility] Last Admin: 10/25/17 14:43 Dose: 0.3 mg Heparin Sodium (Porcine) (Heparin -) 5,000 unit SQ TID [facility] Last Admin: 10/25/17 14:44 Dose: 5,000 unit Hydralazine HCl (Apresoline -) 100 mg PO TID [facility] Last Admin: 10/25/17 14:43 Dose: 100 mg Sodium Chloride (Normal Saline -) 250 mls @ 3,000 mls/hr IV PRN PRN PRN Reason: Hypotension during Dialysis Insulin Aspart (Novolog Vial Sliding Scale -) 1 vial SQ Q4HPO [facility]; Protocol Last Admin: 10/25/17 14:33 Dose: 3 units Insulin Detemir (Levemir Vial) 15 units SQ BID@0700,2200 [facility] Last Admin: 10/25/17 06:03 Dose: Not Given Labetalol HCl (Normodyne -) 500 mg PO TID [facility] Last Admin: 10/25/17 14:43 Dose: 500 mg Losartan Potassium (Cozaar -) 100 mg PO DAILY [facility] Last Admin: 10/25/17 11:14 Dose: 100 mg Nifedipine (Procardia Xl -) 90 mg PO DAILY [facility] Last Admin: 10/25/17 11:14 Dose: 90 mg Oxycodone HCl (Oxycontin -) 10 mg PO Q6H PRN PRN Reason: PAIN LEVEL 6-10 - Objective Vital Signs: Vital Signs Temperature 98.1 F 10/25/17 16:00 Pulse Rate 84 10/25/17 16:00 Respiratory Rate 17 10/25/17 16:00 Blood Pressure 125/53 10/25/17 16:00 O2 Sat by Pulse Oximetry (%) 100 10/24/17 23:24 Constitutional: Yes: Mild Distress Eyes: Yes: Other HENT: Yes: WNL Neck: Yes: WNL Cardiovascular: Yes: WNL Respiratory: Yes: WNL Gastrointestinal: Yes: WNL Genitourinary: Yes: Other Musculoskeletal: Yes: Muscle Weakness Extremities: Yes: Other Edema: Yes Edema: LLE: 2+, RLE: 2+ Peripheral Pulses WNL: Yes Integumentary: Yes: WNL Wound/Incision: Yes: Clean/Dry Neurological: Yes: Pre-Existing Deficit ...Motor Strength: LLE, RLE Psychiatric: Yes: Other Labs: CBC, BMP 10/25/17 05:30 10/25/17 05:30 INR, PTT INR 1.13 (0.82-1.09) 10/23/17 12:25 Problem List - Problems (1) Cardiac arrest Code(s): I46.9 - CARDIAC ARREST, CAUSE UNSPECIFIED (2) DKA (diabetic ketoacidoses) Code(s): E13.10 - OTH DIABETES MELLITUS WITH KETOACIDOSIS WITHOUT COMA Qualifiers: Diabetes mellitus type: type 1 Diabetes mellitus complication detail: with coma Qualified Code(s): E10.11 - Type 1 diabetes mellitus with ketoacidosis with coma (3) High anion gap metabolic acidosis Code(s): E87.2 - ACIDOSIS (4) ESRD (end stage renal disease) on dialysis Code(s): N18.6 - END STAGE RENAL DISEASE; Z99.2 - DEPENDENCE ON RENAL DIALYSIS (5) Anemia Code(s): D64.9 - ANEMIA, UNSPECIFIED Qualifiers: Folate deficiency anemia type: dietary (6) Diabetes mellitus, insulin dependent (IDDM), uncontrolled Code(s): E10.65 - TYPE 1 DIABETES MELLITUS WITH HYPERGLYCEMIA Assessment/Plan PSYCHIATRY EVAL FOR NON-COMPLIANCE NUTRITION CONSULT CARDIO/PULM CONSULT APPRECIATED ESRD ON HD WILL NEED [facility] SUPPORT GROUP AND MEDICAL F/U D/W FAMILY BEDSIDE MOTHER AND GRANDMA
[2017-10-25] MEDS ORDERED: INSULIN (NOVOLOG) ASPART 100 UNITS/ML 10ML VIAL SQ ONE ×2 (18:42→21:50)
[2017-10-25] MEDS: oxyCODONE HCL 5 MG TABLET PO PRN (19:05)
--- NOTE | 2017-10-25 21:26 | PN ---
Physical Exam: SUBJECTIVE: Patient seen and examined today in icu. Awake, family at bedside. Denies cp or sob. Self extubated last night. OBJECTIVE: Vital Signs Period Temp Pulse Resp BP Sys/Ames Pulse Ox Last 24 Hr 98.1 F-99.1 F 74-94 16-26 103-160/53-106 100 GENERAL: AAOx3 HEAD: NC/AT EYES: EOMI ENT: WNL NECK: No JVD LUNGS: Dec BS throughout HEART: RRR ABDOMEN: ND, No HSM, NT EXTREMITIES: No CCE NEUROLOGICAL: No Neuro Deficits SKIN: Toenails brittle, dry skin. Laboratory Results - last 24 hr 10/23/17 10/23/17 10/23/17 18:54 21:09 22:58 WBC RBC Hgb Hct MCV MCH MCHC RDW Plt Count MPV Sodium Potassium Chloride Carbon Dioxide Anion Gap BUN Creatinine Creat Clearance w eGFR POC Glucometer > 400 > [phone] Random Glucose Hemoglobin A1c % Calcium Phosphorus Magnesium Total Bilirubin AST ALT Alkaline Phosphatase Total Protein Albumin Hepatitis A Ab Total Hep Bs Antigen Hep Bs Antibody Hep B Core Total Ab Hep C Ab Diagnostic Liver Fibrosis Interp 10/23/17 10/24/17 10/24/17 23:54 00:56 02:01 WBC RBC Hgb Hct MCV MCH MCHC RDW Plt Count MPV Sodium Potassium Chloride Carbon Dioxide Anion Gap BUN Creatinine Creat Clearance w eGFR POC Glucometer 143.46845 129.86183 98.14239 Random Glucose Hemoglobin A1c % Calcium Phosphorus Magnesium Total Bilirubin AST ALT Alkaline Phosphatase Total Protein Albumin Hepatitis A Ab Total Hep Bs Antigen Hep Bs Antibody Hep B Core Total Ab Hep C Ab Diagnostic Liver Fibrosis Interp 10/24/17 10/24/17 10/24/17 02:30 02:30 02:56 WBC RBC Hgb Hct MCV MCH MCHC RDW Plt Count MPV Sodium Potassium Chloride Carbon Dioxide Anion Gap BUN Creatinine Creat Clearance w eGFR POC Glucometer [phone] Random Glucose Hemoglobin A1c % Calcium Phosphorus Magnesium Total Bilirubin AST ALT Alkaline Phosphatase Total Protein Albumin Hepatitis A Ab Total Negative Hep Bs Antigen Negative Hep Bs Antibody Reactive Hep B Core Total Ab Negative Hep C Ab Diagnostic <0.1 Liver Fibrosis Interp 10/24/17 10/24/17 10/24/17 03:58 05:28 06:45 WBC RBC Hgb Hct MCV MCH MCHC RDW Plt Count MPV Sodium Potassium Chloride Carbon Dioxide Anion Gap BUN Creatinine Creat Clearance w eGFR POC Glucometer [phone] 132.24252 Random Glucose Hemoglobin A1c % Calcium Phosphorus Magnesium Total Bilirubin AST ALT Alkaline Phosphatase Total Protein Albumin Hepatitis A Ab Total Hep Bs Antigen Hep Bs Antibody Hep B Core Total Ab Hep C Ab Diagnostic Liver Fibrosis Interp 10/24/17 10/24/17 10/24/17 07:17 09:25 09:27 WBC RBC Hgb Hct MCV MCH MCHC RDW Plt Count MPV Sodium Potassium Chloride Carbon Dioxide Anion Gap BUN Creatinine Creat Clearance w eGFR POC Glucometer 131.52513 > 400 > 400 Random Glucose Hemoglobin A1c % Calcium Phosphorus Magnesium Total Bilirubin AST ALT Alkaline Phosphatase Total Protein Albumin Hepatitis A Ab Total Hep Bs Antigen Hep Bs Antibody Hep B Core Total Ab Hep C Ab Diagnostic Liver Fibrosis Interp 10/24/17 10/24/17 10/24/17 11:40 13:14 16:45 WBC RBC Hgb Hct MCV MCH MCHC RDW Plt Count MPV Sodium Potassium Chloride Carbon Dioxide Anion Gap BUN Creatinine Creat Clearance w eGFR POC Glucometer > 400 > [phone] Random Glucose Hemoglobin A1c % Calcium Phosphorus Magnesium Total Bilirubin AST ALT Alkaline Phosphatase Total Protein Albumin Hepatitis A Ab Total Hep Bs Antigen Hep Bs Antibody Hep B Core Total Ab Hep C Ab Diagnostic Liver Fibrosis Interp 10/24/17 10/25/17 10/25/17 21:16 05:30 05:30 WBC RBC Hgb Hct MCV MCH MCHC RDW Plt Count MPV Sodium 140 Cancelled Potassium 4.0 Cancelled Chloride 102 Cancelled Carbon Dioxide 29 Cancelled Anion Gap 9 Cancelled BUN 31 H Cancelled Creatinine 4.1 H Cancelled Creat Clearance w eGFR 12.96 Cancelled POC Glucometer [phone] Random Glucose 51 L Cancelled Hemoglobin A1c % Calcium 7.8 L Cancelled Phosphorus 5.3 H Cancelled Magnesium 2.0 Total Bilirubin 0.5 Cancelled AST 74 H Cancelled ALT 25 Cancelled Alkaline Phosphatase 1181 H D Cancelled Total Protein 6.4 Cancelled Albumin 2.9 L Cancelled Hepatitis A Ab Total Hep Bs Antigen Hep Bs Antibody Hep B Core Total Ab Hep C Ab Diagnostic Liver Fibrosis Interp 10/25/17 10/25/17 10/25/17 05:30 08:30 18:00 WBC 8.5 RBC 2.88 L Hgb 8.2 L Hct 25.2 L MCV 87.3 MCH 28.3 MCHC 32.4 RDW 17.5 H Plt Count 227 MPV 9.8 Sodium Potassium Chloride Carbon Dioxide Anion Gap BUN Creatinine Creat Clearance w eGFR POC Glucometer Random Glucose 522 H* Hemoglobin A1c % 13.1 H Calcium Phosphorus Magnesium Total Bilirubin AST ALT Alkaline Phosphatase Total Protein Albumin Hepatitis A Ab Total Hep Bs Antigen Hep Bs Antibody Hep B Core Total Ab Hep C Ab Diagnostic Liver Fibrosis Interp Active Medications Generic Name Dose Route Start Last Admin Trade Name Freq PRN Reason Stop Dose Admin Clonidine 0.3 mg 10/24/17 14:00 10/25/17 14:43 Catapres - PO 0.3 mg TID ROSA MARIA Administration Heparin Sodium (Porcine) 5,000 unit 10/24/17 14:00 10/25/17 14:44 Heparin - SQ 5,000 unit TID ROSA MARIA Administration Hydralazine HCl 100 mg 10/24/17 14:00 10/25/17 14:43 Apresoline - PO 100 mg TID ROSA MARIA Administration Sodium Chloride 250 mls @ 3,000 mls/hr 10/25/17 06:24 Normal Saline - IV PRN PRN Hypotension during Dialysis Insulin Aspart 1 vial 10/24/17 22:00 10/25/17 19:04 Novolog Vial Sliding Scale - SQ Not Given Q4HPO [facility] Protocol Insulin Detemir 15 units 10/24/17 22:00 10/25/17 06:03 Levemir Vial SQ Not Given BID@0700,2200 ROSA MARIA Labetalol HCl 500 mg 10/24/17 18:00 10/25/17 14:43 Normodyne - PO 500 mg TID ROSA MARIA Administration Losartan Potassium 100 mg 10/24/17 11:00 10/25/17 11:14 Cozaar - PO 100 mg DAILY ROSA MARIA Administration Nifedipine 90 mg 10/25/17 10:00 10/25/17 11:14 Procardia Xl - PO 90 mg DAILY ROSA MARIA Administration Oxycodone HCl 10 mg 10/25/17 18:53 10/25/17 19:05 Roxicodone - PO 10 mg Q6H PRN Administration PAIN LEVEL 7 - 10 ASSESSMENT/PLAN: 27 y/o F w/PMH of ESRD on HD (MWF), HTN, IDDM, seizure d/o, PE presents to the ER after being found disoriented and subsequently pulseless by her mother. Cardio S/P Cardiac Arrest Cardiology on board Possibly due to hyperglycemia and electrolyte abnormalities. Chest CTA 10/24/17---> No evidence for acute pulmonary emboli. Echo Today---> Mild concentric left ventricular hypertrophy, Mild pulmonic valvular regurgitation, Mild aortic valve thickening, aortic valve trileaflet, mild aortic sclerosis, trace mitral regurg, atrial septum aneurysmal no evidence of shunting, moderate tricuspid regurg, right ventricular systolic pressure elevated to 40-50 mmhg. Hypertensive Urgency: Procardia Xl 90 mg PO Daily Cozaar 100 mg PO DAILY Labetalol HCl 500 mg PO TID Hydralazine HCl 100 mg PO TID Catapres 0.3 mg PO TID ENDO: DM Insulin Detemir 15 units BID Novolog Vial Sliding Scale Insulin gtt d/c'ed Renal: Hemodialysis today. Nephrology, Dr Vo on board FEN Normal Saline 3,000 mls/hr IV PRN hypotension Soft Diet DVT ppx: Heparin 5,000 U SQ TID Dispo: Pt transfered to floors this evening Visit type - Emergency Visit Emergency Visit: Yes ED Registration Date: 10/23/17 Care time: The patient presented to the Emergency Department on the above date and was hospitalized for further evaluation of their emergent condition. - New Patient This patient is new to me today: Yes Date on this admission: 10/25/17 - Critical Care Critical Care patient: Yes Total Critical Care Time (in minutes): 35 Critical Care Statement: The care of this patient involved high complexity decision making to prevent further life threatening deterioration of the patient 's condition and/or to evaluate & treat vital organ system(s) failure or risk of failure.
[2017-10-26] MEDS: INSULIN SLIDING SCALE (NOVOLOG) 1 VIAL SQ SCH ×6 (02:12→21:06)
[2017-10-26] MEDS: LABETALOL HCL 200 MG TABLET (FP) PO SCH ×3 (05:55→20:58)
[2017-10-26] MEDS: cloNIDine HCL 0.1 MG TABLET PO SCH ×3 (05:55→20:59)
[2017-10-26] MEDS: HEPARIN NA (PORCINE) 5,000 UNITS/ML 1ML VIAL SQ SCH ×3 (05:56→21:07)
[2017-10-26] MEDS: hydrALAZINE HCL 50 MG TABLET (FP) PO SCH ×3 (05:56→20:59)
[2017-10-26] MEDS: INSULIN (LEVEMIR) 100 UNITS/ML UNITS SQ SCH ×2 (06:02→21:06)
[2017-10-26] MEDS: LOSARTAN POTASSIUM 50 MG TABLET (FP) PO SCH (10:56)
[2017-10-26] MEDS: NIFEdipine E.R. 90 MG TABLET (FP) PO SCH (10:56)
--- NOTE | 2017-10-26 10:57 | PN ---
Progress Note, Physician History of Present Illness: pulmonary alert,no distress on nasal cannula . - Current Medication List Current Medications: Active Medications Cefazolin Sodium/Dextrose (Ancef 2 Gm Premixed Ivpb -) 2 gm IVPB ONCE ONE Stop: 10/27/17 08:01 Clonidine (Catapres -) 0.3 mg PO TID [facility] Last Admin: 10/26/17 05:55 Dose: 0.3 mg Heparin Sodium (Porcine) (Heparin -) 5,000 unit SQ TID [facility] Last Admin: 10/26/17 05:56 Dose: Not Given Hydralazine HCl (Apresoline -) 100 mg PO TID [facility] Last Admin: 10/26/17 05:56 Dose: 100 mg Sodium Chloride (Normal Saline -) 250 mls @ 3,000 mls/hr IV PRN PRN PRN Reason: Hypotension during Dialysis Insulin Aspart (Novolog Vial Sliding Scale -) 1 vial SQ Q4HPO [facility]; Protocol Last Admin: 10/26/17 09:15 Dose: Not Given Insulin Detemir (Levemir Vial) 15 units SQ BID@0700,2200 [facility] Last Admin: 10/26/17 06:02 Dose: Not Given Labetalol HCl (Normodyne -) 500 mg PO TID [facility] Last Admin: 10/26/17 05:55 Dose: 500 mg Losartan Potassium (Cozaar -) 100 mg PO DAILY [facility] Last Admin: 10/25/17 11:14 Dose: 100 mg Nifedipine (Procardia Xl -) 90 mg PO DAILY [facility] Last Admin: 10/25/17 11:14 Dose: 90 mg Oxycodone HCl (Roxicodone -) 10 mg PO Q6H PRN PRN Reason: PAIN LEVEL 7 - 10 Last Admin: 10/25/17 19:05 Dose: 10 mg - Objective Vital Signs: Vital Signs Temperature 98.1 F 10/26/17 06:00 Pulse Rate 80 10/26/17 06:00 Respiratory Rate 19 10/26/17 06:00 Blood Pressure 144/91 10/26/17 06:00 O2 Sat by Pulse Oximetry (%) 99 10/25/17 22:00 Constitutional: Yes: Well Nourished, Calm Eyes: Yes: WNL HENT: Yes: WNL Neck: Yes: WNL Cardiovascular: Yes: Regular Rate and Rhythm, S1, S2 Respiratory: Yes: CTA Bilaterally Gastrointestinal: Yes: Normal Bowel Sounds, Soft Extremities: Yes: WNL Edema: No Labs: CBC, BMP Problem List - Problems (1) Cardiac arrest Code(s): I46.9 - CARDIAC ARREST, CAUSE UNSPECIFIED (2) DKA (diabetic ketoacidoses) Code(s): E13.10 - OTH DIABETES MELLITUS WITH KETOACIDOSIS WITHOUT COMA Qualifiers: Diabetes mellitus type: type 1 Diabetes mellitus complication detail: with coma Qualified Code(s): E10.11 - Type 1 diabetes mellitus with ketoacidosis with coma (3) High anion gap metabolic acidosis Code(s): E87.2 - ACIDOSIS (4) Pneumonia Code(s): J18.9 - PNEUMONIA, UNSPECIFIED ORGANISM (5) ESRD (end stage renal disease) on dialysis Code(s): N18.6 - END STAGE RENAL DISEASE; Z99.2 - DEPENDENCE ON RENAL DIALYSIS (6) Anemia Code(s): D64.9 - ANEMIA, UNSPECIFIED Qualifiers: Folate deficiency anemia type: dietary (7) Diabetes mellitus, insulin dependent (IDDM), uncontrolled Code(s): E10.65 - TYPE 1 DIABETES MELLITUS WITH HYPERGLYCEMIA (8) HTN (hypertension) Code(s): I10 - ESSENTIAL (PRIMARY) HYPERTENSION Assessment/Plan ASSESSMENT AND PLAN: s/p Cardiopulmonary Arrest s/p Acute respiratory failure HHNK/DKA overlap Lactic Acidosis ESRD on HD Anemia HTN Seizure Disorder h/o PE Pulmonary Htn - O2 to keep Spo2 >90% - glucose control - HD per renal - antibiotics as per ID - DVT prophylaxis DR BECERRA
--- NOTE | 2017-10-26 11:51 | PN ---
Progress Note, Physician Chief Complaint: Respiratory failure DKA Diabetic foot ulcer History of Present Illness: NAD appears comfortable on Nasal O2 Pain improved in her back and chest - Current Medication List Current Medications: Active Medications Cefazolin Sodium/Dextrose (Ancef 2 Gm Premixed Ivpb -) 2 gm IVPB ONCE ONE Stop: 10/27/17 08:01 Clonidine (Catapres -) 0.3 mg PO TID [facility] Last Admin: 10/26/17 05:55 Dose: 0.3 mg Heparin Sodium (Porcine) (Heparin -) 5,000 unit SQ TID [facility] Last Admin: 10/26/17 05:56 Dose: Not Given Hydralazine HCl (Apresoline -) 100 mg PO TID [facility] Last Admin: 10/26/17 05:56 Dose: 100 mg Sodium Chloride (Normal Saline -) 250 mls @ 3,000 mls/hr IV PRN PRN PRN Reason: Hypotension during Dialysis Insulin Aspart (Novolog Vial Sliding Scale -) 1 vial SQ Q4HPO [facility]; Protocol Last Admin: 10/26/17 09:15 Dose: Not Given Insulin Detemir (Levemir Vial) 15 units SQ BID@0700,2200 [facility] Last Admin: 10/26/17 06:02 Dose: Not Given Labetalol HCl (Normodyne -) 500 mg PO TID [facility] Last Admin: 10/26/17 05:55 Dose: 500 mg Losartan Potassium (Cozaar -) 100 mg PO DAILY [facility] Last Admin: 10/26/17 10:56 Dose: Not Given Nifedipine (Procardia Xl -) 90 mg PO DAILY [facility] Last Admin: 10/26/17 10:56 Dose: Not Given Oxycodone HCl (Roxicodone -) 10 mg PO Q6H PRN PRN Reason: PAIN LEVEL 7 - 10 Last Admin: 10/25/17 19:05 Dose: 10 mg - Objective Vital Signs: Vital Signs Temperature 97.9 F 10/26/17 10:00 Pulse Rate 76 10/26/17 10:00 Respiratory Rate 18 10/26/17 10:00 Blood Pressure 123/61 10/26/17 10:00 O2 Sat by Pulse Oximetry (%) 99 10/26/17 10:00 Constitutional: Yes: Well Nourished, No Distress, Calm Cardiovascular: Yes: Regular Rate and Rhythm Respiratory: Yes: Regular Gastrointestinal: Yes: Normal Bowel Sounds, Soft Musculoskeletal: Yes: Muscle Weakness Neurological: Yes: Alert, Oriented Psychiatric: Yes: Alert, Oriented Labs: CBC, BMP 10/25/17 05:30 10/25/17 18:00 INR, PTT INR 1.13 (0.82-1.09) 10/23/17 12:25 Problem List - Problems (1) Respiratory failure Assessment/Plan: -On nasal O2 -Seen by Pulmonary Code(s): J96.90 - RESPIRATORY FAILURE, UNSP, UNSP W HYPOXIA OR HYPERCAPNIA (2) DKA (diabetic ketoacidoses) Assessment/Plan: -Endocrinology on board -RD consult -[facility] -Insulin levemir and novolog -Diabetic diet Code(s): E13.10 - OTH DIABETES MELLITUS WITH KETOACIDOSIS WITHOUT COMA Qualifiers: Diabetes mellitus type: type 1 Diabetes mellitus complication detail: with coma Qualified Code(s): E10.11 - Type 1 diabetes mellitus with ketoacidosis with coma (3) ESRD (end stage renal disease) on dialysis Assessment/Plan: -On HD -Nephrology on board Code(s): N18.6 - END STAGE RENAL DISEASE; Z99.2 - DEPENDENCE ON RENAL DIALYSIS (4) Diabetic foot ulcer Assessment/Plan: -podiatry consult -is currently being treated with IV abx for Osteomyelitis Code(s): E11.621 - TYPE 2 DIABETES MELLITUS WITH FOOT ULCER; L97.509 - NON- PRESSURE CHRONIC ULCER OTH PRT UNSP FOOT W UNSP SEVERITY (5) Diabetes mellitus, insulin dependent (IDDM), uncontrolled Assessment/Plan: -Endocrinology on board -RD consult -[facility] -Insulin levemir and novolog -Diabetic diet Code(s): E10.65 - TYPE 1 DIABETES MELLITUS WITH HYPERGLYCEMIA (6) Anemia Assessment/Plan: -ESR, ASHOK and CD -venofer 300 mg daily x 3 doses -stool ob -monitor trend Code(s): D64.9 - ANEMIA, UNSPECIFIED Qualifiers: Folate deficiency anemia type: dietary Assessment/Plan see problem list
[2017-10-26] MEDS: oxyCODONE HCL 5 MG TABLET PO PRN ×2 (13:41→20:53)
--- NOTE | 2017-10-26 14:30 | PN ---
Progress Note, Physician History of Present Illness: patient stable no new issues - Current Medication List Current Medications: Active Medications Cefazolin Sodium/Dextrose (Ancef 2 Gm Premixed Ivpb -) 2 gm IVPB ONCE ONE Stop: 10/27/17 08:01 Clonidine (Catapres -) 0.3 mg PO TID [facility] Last Admin: 10/26/17 13:40 Dose: 0.3 mg Heparin Sodium (Porcine) (Heparin -) 5,000 unit SQ TID [facility] Last Admin: 10/26/17 13:42 Dose: Not Given Hydralazine HCl (Apresoline -) 100 mg PO TID [facility] Last Admin: 10/26/17 13:40 Dose: 100 mg Sodium Chloride (Normal Saline -) 250 mls @ 3,000 mls/hr IV PRN PRN PRN Reason: Hypotension during Dialysis Iron Sucrose 300 mg/ Sodium (Chloride) 250 mls @ 250 mls/hr IVPB DAILY ONE Stop: 10/26/17 14:33 Insulin Aspart (Novolog Vial Sliding Scale -) 1 vial SQ Q4HPO [facility]; Protocol Last Admin: 10/26/17 13:44 Dose: Not Given Insulin Detemir (Levemir Vial) 12 units SQ HS [facility] Insulin Detemir (Levemir Vial) 15 units SQ AM [facility] Labetalol HCl (Normodyne -) 500 mg PO TID [facility] Last Admin: 10/26/17 13:40 Dose: 500 mg Losartan Potassium (Cozaar -) 100 mg PO DAILY [facility] Last Admin: 10/26/17 10:56 Dose: Not Given Nifedipine (Procardia Xl -) 90 mg PO DAILY [facility] Last Admin: 10/26/17 10:56 Dose: Not Given Oxycodone HCl (Roxicodone -) 10 mg PO Q6H PRN PRN Reason: PAIN LEVEL 7 - 10 Last Admin: 10/26/17 13:41 Dose: 10 mg - Objective Vital Signs: Vital Signs Temperature 98.4 F 10/26/17 13:45 Pulse Rate 82 10/26/17 13:45 Respiratory Rate 18 10/26/17 13:45 Blood Pressure 131/76 10/26/17 13:45 O2 Sat by Pulse Oximetry (%) 99 10/26/17 10:00 Constitutional: Yes: No Distress, Calm Cardiovascular: Yes: Regular Rate and Rhythm Respiratory: Yes: Regular, CTA Bilaterally Gastrointestinal: Yes: Normal Bowel Sounds, Soft Musculoskeletal: Yes: WNL Extremities: Yes: Other Wound/Incision: Yes: Dressing Dry and Intact Neurological: Yes: Alert, Oriented Psychiatric: Yes: Alert, Oriented Labs: CBC, BMP 10/25/17 05:30 10/25/17 18:00 INR, PTT INR 1.13 (0.82-1.09) 10/23/17 12:25 Assessment/Plan Problem List - Problems (1) Cardiac arrest Code(s): I46.9 - CARDIAC ARREST, CAUSE UNSPECIFIED (2) DKA (diabetic ketoacidoses) Code(s): E13.10 - OTH DIABETES MELLITUS WITH KETOACIDOSIS WITHOUT COMA Qualifiers: Diabetes mellitus type: type 1 Diabetes mellitus complication detail: with coma Qualified Code(s): E10.11 - Type 1 diabetes mellitus with ketoacidosis with coma (3) ESRD (end stage renal disease) on dialysis Code(s): N18.6 - END STAGE RENAL DISEASE; Z99.2 - DEPENDENCE ON RENAL DIALYSIS (4) Anemia Code(s): D64.9 - ANEMIA, UNSPECIFIED Qualifiers: Folate deficiency anemia type: dietary (5) Diabetes mellitus, insulin dependent (IDDM), uncontrolled Code(s): E10.65 - TYPE 1 DIABETES MELLITUS WITH HYPERGLYCEMIA (6) Diabetic foot ulcer Code(s): E11.621 - TYPE 2 DIABETES MELLITUS WITH FOOT ULCER; L97.509 - NON- PRESSURE CHRONIC ULCER OTH PRT UNSP FOOT W UNSP SEVERITY (7) HTN (hypertension) Code(s): I10 - ESSENTIAL (PRIMARY) HYPERTENSION Assessment/Plan Pt is a 27 y.o. female with IDDM, ESRD on HD, seizure d.o. PE, PVD, Atrial thrombosis, cardiac myxoma, currently on Cefazolin during HD for Rt foot infected plantar ulcer/OM, brought in by EMS after found initially unresponsive by mother and then pulseless necessitating CPR. Pt intubated in ER for hypoxia and obtundation. Antibiotics initiated while undergoing sepsis workup and other management. continue abx as before patient gets it during dialysis finish the course as planned rest as per the team
[2017-10-26] MEDS ORDERED: IRON SUCROSE INJECTION 300 MG in SODIUM CHLORIDE 235 ML IVPB SCH (15:00)
[2017-10-26] MEDS ORDERED: SODIUM CHLORIDE 250 ML IV PRN (16:42)
--- NOTE | 2017-10-26 16:42 | PN ---
Progress Note (short form) - Note Progress Note: Renal follow up for ESRD on Hd Pt seen and examined at the bedside reports chest pain when moving and taking deep breaths no sob, abd pain, N/V/D, Fever, chills Vital Signs Temperature 98.4 F 10/26/17 13:45 Pulse Rate 82 10/26/17 13:45 Respiratory Rate 18 10/26/17 13:45 Blood Pressure 131/76 10/26/17 13:45 O2 Sat by Pulse Oximetry (%) 99 10/26/17 10:00 Intake & Output 10/23/17 10/24/17 10/25/17 10/26/17 23:59 23:59 23:59 23:59 Intake Total 475 1019 900 450 Output Total 300 Balance 475 719 900 450 Weight 70.7 kg 70.2 kg 68.946 kg 64.319 kg NAD awake and alert RRR, No M/R Dec BS, no rales soft NT.ND + edema in LE, no cyanoiss extremities are warm CBC, BMP 10/25/17 05:30 10/25/17 18:00 Current Medications Cefazolin Sodium/Dextrose (Ancef 2 Gm Premixed Ivpb -) 2 gm IVPB ONCE ONE Stop: 10/27/17 08:01 Clonidine (Catapres -) 0.3 mg PO TID [facility] Last Admin: 10/26/17 13:40 Dose: 0.3 mg Heparin Sodium (Porcine) (Heparin -) 5,000 unit SQ TID [facility] [place] Last Admin: 10/26/17 13:42 Dose: Not Given Hydralazine HCl (Apresoline -) 100 mg PO TID [facility] Last Admin: 10/26/17 13:40 Dose: 100 mg Sodium Chloride (Normal Saline -) 250 mls @ 3,000 mls/hr IV PRN PRN PRN Reason: Hypotension during Dialysis Insulin Aspart (Novolog Vial Sliding Scale -) 1 vial SQ Q4HPO [facility] [place]; Protocol Last Admin: 10/26/17 13:44 Dose: Not Given Insulin Detemir (Levemir Vial) 12 units SQ HS [facility] Insulin Detemir (Levemir Vial) 15 units SQ AM [facility] Labetalol HCl (Normodyne -) 500 mg PO TID [facility] Last Admin: 10/26/17 13:40 Dose: 500 mg Losartan Potassium (Cozaar -) 100 mg PO DAILY [facility] Last Admin: 10/26/17 10:56 Dose: Not Given Nifedipine (Procardia Xl -) 90 mg PO DAILY [facility] [place] Last Admin: 10/26/17 10:56 Dose: Not Given Oxycodone HCl (Roxicodone -) 10 mg PO Q6H PRN PRN Reason: PAIN LEVEL 7 - 10 Last Admin: 10/26/17 13:41 Dose: 10 mg 27 year old AA woman with PMhx of ESRD on HD (secondary to DM), IDDM, Hypertension, PVD, Atrial thrombus who presented via EMS with AMS/ Unresponsiveness at home with cardiac arrest requiring CPR in the field. #Cardiac Arrest #Hyperglycemia/DKA #Lactic Acidosis #Hyperkalemia #ESRD on HD #Chronic Anemia #Recently diagnosed Osteomylitis no acute indication for [employer] today next dialysis tomorrow in AM check CXR as pt with chest pain s/p CPR blood cultures positive, will repeat with Hd tomorrow Abx as per ID Renal diet, 1.2L fluid restriction Nathan Vo DO
--- NOTE | 2017-10-26 17:10 | CONSULT ---
Consult - text type - Consultation Consultation Note: Podiatry Consult: 27 year old F, poorly controlled non-compliant IDDM, ESRD on HD presents with cardiac arrest. Patient well known to me from wound healing center. S/p R foot debridement and 5th metatarsal head resection and bone biopsy during last admission. Denies F/V/N/C/SOB/CP. Afebrile, VSS. PMHx: poorly controlled non-compliant IDDM, ESRD on HD, HTN, h/o PE Meds: noted ALL: lactose CATRACHITA: R foot: pedal pulses palpable, TG wnl, CFT brisk to all toes. Incision site dorsa 5th metatarsal with mild dehiscence, underlying fibrogranular base, no probing to bone, no purulence, no fluctuance, no cellulitis, no signs of infection. Wound sub-fifth metatarsal diabetic ulcer with mixed fibrogranular base, hyperkeratotic borders, no probing to bone, no purulence, no fluctuance, no ascending cellulitis, no signs of active infection. Imp: 27 year old DM F with R foot diabetic ulcer 1. Excisional debridement at bedside of R foot diabetic foot ulcer to subcutaneous tissue using sterile scissors. 2. Rx santyl daily to R foot ulcer 3. Will f/u in wound healing center upon discharge Delfino Dubon DPM
--- NOTE | 2017-10-26 19:23 | PN ---
Progress Note, Physician Chief Complaint: feeling tired not eating well History of Present Illness: 27 year old AA woman with PMhx of ESRD on HD (secondary to DM), IDDM, Hypertension, PVD, Atrial thrombus who presented via EMS with AMS/ Unresponsiveness at home with cardiac arrest requiring CPR in the field.since admission has demonstrated labile bs levels,at home admits not compliant with insulin and doses - Current Medication List Current Medications: Active Medications Cefazolin Sodium/Dextrose (Ancef 2 Gm Premixed Ivpb -) 2 gm IVPB ONCE ONE Stop: 10/27/17 08:01 Clonidine (Catapres -) 0.3 mg PO TID [facility] Last Admin: 10/26/17 13:40 Dose: 0.3 mg Collagenase (Santyl -) 1 applic TP DAILY [facility]; Protocol Epoetin Abiel (Epogen -) 20,000 unit IVPUSH ONCE ONE Stop: 10/27/17 06:01 Heparin Sodium (Porcine) (Heparin -) 5,000 unit SQ TID [facility] Last Admin: 10/26/17 13:42 Dose: Not Given Hydralazine HCl (Apresoline -) 100 mg PO TID [facility] Last Admin: 10/26/17 13:40 Dose: 100 mg Sodium Chloride (Normal Saline -) 250 mls @ 3,000 mls/hr IV PRN PRN PRN Reason: Hypotension during Dialysis Sodium Chloride (Normal Saline -) 250 mls @ 3,000 mls/hr IV PRN PRN PRN Reason: Hypotension during Dialysis Stop: 10/27/17 16:42 Insulin Aspart (Novolog Vial Sliding Scale -) 1 vial SQ Q4HPO [facility]; Protocol Last Admin: 10/26/17 17:14 Dose: 10 units Insulin Detemir (Levemir Vial) 15 units SQ AM [facility] Insulin Detemir (Levemir Vial) 5 units SQ HS [facility] Labetalol HCl (Normodyne -) 500 mg PO TID [facility] Last Admin: 10/26/17 13:40 Dose: 500 mg Losartan Potassium (Cozaar -) 100 mg PO DAILY [facility] Last Admin: 10/26/17 10:56 Dose: Not Given Nifedipine (Procardia Xl -) 90 mg PO DAILY [facility] Last Admin: 10/26/17 10:56 Dose: Not Given Oxycodone HCl (Roxicodone -) 10 mg PO Q6H PRN PRN Reason: PAIN LEVEL 7 - 10 Last Admin: 10/26/17 13:41 Dose: 10 mg - Objective Vital Signs: Vital Signs Temperature 98.4 F 10/26/17 13:45 Pulse Rate 82 10/26/17 13:45 Respiratory Rate 18 10/26/17 13:45 Blood Pressure 131/76 10/26/17 13:45 O2 Sat by Pulse Oximetry (%) 99 10/26/17 10:00 Constitutional: Yes: Calm Eyes: Yes: EOM Intact HENT: Yes: Normocephalic Neck: Yes: Trachea Midline Cardiovascular: Yes: Bradycardia, Pulse Irregular Respiratory: Yes: CTA Bilaterally Gastrointestinal: Yes: Normal Bowel Sounds ...Rectal Exam: Yes: Deferred Extremities: Yes: Cool, Erythema Neurological: Yes: Alert, Oriented Labs: CBC, BMP 10/25/17 05:30 10/25/17 18:00 INR, PTT INR 1.13 (0.82-1.09) 10/23/17 12:25 Problem List - Problems (1) Airway intubation performed without difficulty Code(s): Z78.9 - OTHER SPECIFIED HEALTH STATUS (2) DKA (diabetic ketoacidoses) Code(s): E13.10 - OTH DIABETES MELLITUS WITH KETOACIDOSIS WITHOUT COMA Qualifiers: Diabetes mellitus type: type 1 Diabetes mellitus complication detail: with coma Qualified Code(s): E10.11 - Type 1 diabetes mellitus with ketoacidosis with coma (3) High anion gap metabolic acidosis Code(s): E87.2 - ACIDOSIS (4) Anemia Code(s): D64.9 - ANEMIA, UNSPECIFIED Qualifiers: Folate deficiency anemia type: dietary (5) Chronic GERD Code(s): K21.9 - GASTRO-ESOPHAGEAL REFLUX DISEASE WITHOUT ESOPHAGITIS (6) Diabetes mellitus, insulin dependent (IDDM), uncontrolled Code(s): E10.65 - TYPE 1 DIABETES MELLITUS WITH HYPERGLYCEMIA (7) Diabetic foot ulcer Code(s): E11.621 - TYPE 2 DIABETES MELLITUS WITH FOOT ULCER; L97.509 - NON- PRESSURE CHRONIC ULCER OTH PRT UNSP FOOT W UNSP SEVERITY Assessment/Plan Current Active Problems Airway intubation performed without difficulty (Acute) Cardiac arrest (Acute) DKA (diabetic ketoacidoses) (Acute) High anion gap metabolic acidosis (Acute) Pneumonia (Acute) Respiratory failure (Acute) ESRD (end stage renal disease) on dialysis (Chronic) Laboratory Results - last 24 hr 10/25/17 10/26/17 10/26/17 21:47 01:54 05:35 POC Glucometer 464 140 62 10/26/17 10/26/17 09:13 13:43 POC Glucometer 114 230 plan: levemir 15 am levemir 5 units hs since diet limited with fequent bgm will need outpatient monitored glycemia will suggest cgms as outpatient
[2017-10-26] MEDS ORDERED: INSULIN (NOVOLOG) ASPART 100 UNITS/ML 10ML VIAL SQ ONE (21:15)
[2017-10-26] MEDS ORDERED: INSULIN (LEVEMIR) 100 UNITS/ML UNITS SQ SCH (22:00)
[2017-10-27] MEDS: INSULIN SLIDING SCALE (NOVOLOG) 1 VIAL SQ SCH (02:09)
[2017-10-27] MEDS ORDERED: ceFAZolin 2 GRAM PREMIX BAG IVPB ONE ×2 (04:03→08:00)
[2017-10-27] MEDS ORDERED: SODIUM CHLORIDE 250 ML IV PRN (04:03)
[2017-10-27] MEDS ORDERED: LABETALOL HCL 100 MG TABLET (FP) ONE ×3 (05:35→21:08)
[2017-10-27] MEDS ORDERED: LABETALOL HCL 200 MG TABLET (FP) ONE ×3 (05:35→21:07)
[2017-10-27] MEDS: LABETALOL HCL PO SCH ×3 (05:55→21:13)
[2017-10-27] MEDS: cloNIDine HCL 0.1 MG TABLET PO SCH ×3 (05:55→21:13)
[2017-10-27] MEDS: oxyCODONE HCL 5 MG TABLET PO PRN ×3 (05:56→21:13)
[2017-10-27] MEDS: hydrALAZINE HCL 50 MG TABLET (FP) PO SCH ×3 (05:56→21:12)
[2017-10-27] MEDS: HEPARIN NA (PORCINE) 5,000 UNITS/ML 1ML VIAL SQ SCH ×3 (05:57→21:15)
[2017-10-27] MEDS: INSULIN (NOVOLOG) ASPART 100 UNITS/ML 10ML VIAL SQ SCH ×5 (05:59→21:19)
[2017-10-27] MEDS: INSULIN (LEVEMIR) 100 UNITS/ML UNITS SQ SCH ×2 (05:59→21:18)
[2017-10-27] MEDS ORDERED: LABETALOL HCL 200 MG TABLET (FP) PO SCH (06:00)
[2017-10-27] MEDS ORDERED: PT OWN MED DRAWER 7, Y5N ONE ×2 (06:24→14:04)
[2017-10-27] MEDS ORDERED: EPOETIN ALFA 20,000 UNIT/1 ML VIAL IVPUSH ONE (08:00)
[2017-10-27 08:49] LABS: HEMATOCRIT 26.2 % (32.4-45.2); HEMOGLOBIN 8.4 GM/dL (10.7-15.3); MCH 28.5 pg (25.7-33.7); MCHC 32.2 g/dl (32.0-36.0); MEAN CELL VOLUME 88.4 fl (80-96); MEAN PLT VOLUME 9.8 fl (7.5-11.1); PLATELET COUNT 196 K/MM3 (134-434); RBC 2.96 M/mm3 (3.60-5.2)
[2017-10-27 09:07] LABS: ANION GAP 12 (8-16); BLOOD UREA NITROGEN 37 mg/dL (7-18); CALCIUM 7.8 mg/dL (8.5-10.1); CHLORIDE 97 mmol/L (98-107); CO2 28 mmol/L (21-32); CREATININE 4.9 mg/dL (0.55-1.02); GLUCOSE,RANDOM 195 mg/dL (74-106); PHOSPHOROUS 6.1 mg/dL (2.5-4.9); POTASSIUM 3.9 mmol/L (3.5-5.1); SODIUM 137 mmol/L (136-145)
--- NOTE | 2017-10-27 09:27 | PN ---
Progress Note, Physician Chief Complaint: Respiratory failure DKA Diabetic foot ulcer History of Present Illness: NAD appears comfortable on Nasal O2 Pain improved in her back and chest Seen by podiatry for bedside debridement - Current Medication List Current Medications: Active Medications Clonidine (Catapres -) 0.3 mg PO TID [facility] Last Admin: 10/27/17 05:55 Dose: 0.3 mg Collagenase (Santyl -) 1 applic TP DAILY [facility]; Protocol Heparin Sodium (Porcine) (Heparin -) 5,000 unit SQ TID [facility] Last Admin: 10/27/17 05:57 Dose: Not Given Hydralazine HCl (Apresoline -) 100 mg PO TID [facility] Last Admin: 10/27/17 05:56 Dose: 100 mg Sodium Chloride (Normal Saline -) 250 mls @ 3,000 mls/hr IV PRN PRN PRN Reason: Hypotension during Dialysis Stop: 10/27/17 16:42 Insulin Aspart (Novolog Vial) 0 units SQ Q4HPO [facility]; Protocol Last Admin: 10/27/17 05:59 Dose: Not Given Insulin Detemir (Levemir Vial) 15 units SQ AM [facility] Last Admin: 10/27/17 05:59 Dose: 15 units Insulin Detemir (Levemir Vial) 5 units SQ HS [facility] Last Admin: 10/26/17 21:06 Dose: 5 units Labetalol HCl 400 mg/ (Labetalol HCl 100 mg) 500 mg PO TID [facility] Last Admin: 10/27/17 05:55 Dose: 500 mg Losartan Potassium (Cozaar -) 100 mg PO DAILY [facility] Nifedipine (Procardia Xl -) 90 mg PO DAILY [facility] Oxycodone HCl (Roxicodone -) 10 mg PO Q6H PRN PRN Reason: PAIN LEVEL 7 - 10 Last Admin: 10/27/17 05:56 Dose: 10 mg - Objective Vital Signs: Vital Signs Temperature 98.8 F 10/27/17 06:55 Pulse Rate 81 10/27/17 09:00 Respiratory Rate 18 10/27/17 09:00 Blood Pressure 150/95 10/27/17 09:00 O2 Sat by Pulse Oximetry (%) 99 10/26/17 22:00 Constitutional: Yes: Well Nourished, No Distress, Calm Cardiovascular: Yes: Regular Rate and Rhythm Respiratory: Yes: Regular Gastrointestinal: Yes: Normal Bowel Sounds, Soft Musculoskeletal: Yes: Muscle Weakness Neurological: Yes: Alert, Oriented Psychiatric: Yes: Alert, Oriented Labs: CBC, BMP 10/27/17 07:00 10/27/17 07:00 INR, PTT INR 1.13 (0.82-1.09) 10/23/17 12:25 Problem List - Problems (1) Respiratory failure Assessment/Plan: -On nasal O2 -Seen by Pulmonary Code(s): J96.90 - RESPIRATORY FAILURE, UNSP, UNSP W HYPOXIA OR HYPERCAPNIA (2) DKA (diabetic ketoacidoses) Assessment/Plan: -Endocrinology on board -RD consult -[facility] -Insulin levemir and novolog -Diabetic diet Code(s): E13.10 - OTH DIABETES MELLITUS WITH KETOACIDOSIS WITHOUT COMA Qualifiers: Diabetes mellitus type: type 1 Diabetes mellitus complication detail: with coma Qualified Code(s): E10.11 - Type 1 diabetes mellitus with ketoacidosis with coma (3) ESRD (end stage renal disease) on dialysis Assessment/Plan: -On HD -Nephrology on board Code(s): N18.6 - END STAGE RENAL DISEASE; Z99.2 - DEPENDENCE ON RENAL DIALYSIS (4) Diabetic foot ulcer Assessment/Plan: -podiatry consult appreciated -is currently being treated with IV abx for Osteomyelitis on dialysis days Code(s): E11.621 - TYPE 2 DIABETES MELLITUS WITH FOOT ULCER; L97.509 - NON- PRESSURE CHRONIC ULCER OTH PRT UNSP FOOT W UNSP SEVERITY (5) Diabetes mellitus, insulin dependent (IDDM), uncontrolled Assessment/Plan: -Endocrinology on board -RD consult -[facility] -Insulin levemir and novolog -Diabetic diet Code(s): E10.65 - TYPE 1 DIABETES MELLITUS WITH HYPERGLYCEMIA (6) Anemia Assessment/Plan: -ESR, ASHOK and CD -Avoid venofer due to bacteremia -stool ob -monitor trend Code(s): D64.9 - ANEMIA, UNSPECIFIED Qualifiers: Folate deficiency anemia type: dietary Assessment/Plan see problem list Physical therapy
[2017-10-27] MEDS ORDERED: CEFAZOLIN 2 GM in DEXTROSE 5%-WATER - 50 ML IVPB ONE (09:36)
[2017-10-27] MEDS: COLLAGENASE CLOSTRIDIUM HIST. 30 GRAMS TUBE TP SCH (11:00)
--- NOTE | 2017-10-27 11:02 | PN ---
Progress Note, Physician History of Present Illness: PULMONARY ALERT,FEELING BETTER,-SOB,ON HD - Current Medication List Current Medications: Active Medications Clonidine (Catapres -) 0.3 mg PO TID [facility] Last Admin: 10/27/17 05:55 Dose: 0.3 mg Collagenase (Santyl -) 1 applic TP DAILY [facility]; Protocol Diphenhydramine HCl (Benadryl Injection -) 50 mg IVPUSH ONCE ONE Stop: 10/27/17 10:43 Last Admin: 10/27/17 10:53 Dose: 50 mg Heparin Sodium (Porcine) (Heparin -) 5,000 unit SQ TID [facility] Last Admin: 10/27/17 05:57 Dose: Not Given Hydralazine HCl (Apresoline -) 100 mg PO TID [facility] Last Admin: 10/27/17 05:56 Dose: 100 mg Sodium Chloride (Normal Saline -) 250 mls @ 3,000 mls/hr IV PRN PRN PRN Reason: Hypotension during Dialysis Stop: 10/27/17 16:42 Cefazolin Sodium 2 gm/ (Dextrose) 50 mls @ 100 mls/hr IVPB ONCE ONE Stop: 10/27/17 10:05 Insulin Aspart (Novolog Vial) 0 units SQ Q4HPO [facility]; Protocol Last Admin: 10/27/17 05:59 Dose: Not Given Insulin Detemir (Levemir Vial) 15 units SQ AM [facility] Last Admin: 10/27/17 05:59 Dose: 15 units Insulin Detemir (Levemir Vial) 5 units SQ HS [facility] Last Admin: 10/26/17 21:06 Dose: 5 units Labetalol HCl 400 mg/ (Labetalol HCl 100 mg) 500 mg PO TID [facility] Last Admin: 10/27/17 05:55 Dose: 500 mg Losartan Potassium (Cozaar -) 100 mg PO DAILY [facility] Nifedipine (Procardia Xl -) 90 mg PO DAILY [facility] Oxycodone HCl (Roxicodone -) 10 mg PO Q6H PRN PRN Reason: PAIN LEVEL 7 - 10 Last Admin: 10/27/17 05:56 Dose: 10 mg - Objective Vital Signs: Vital Signs Temperature 98.8 F 10/27/17 06:55 Pulse Rate 73 10/27/17 10:30 Respiratory Rate 18 10/27/17 10:30 Blood Pressure 141/86 10/27/17 10:30 O2 Sat by Pulse Oximetry (%) 99 10/26/17 22:00 Constitutional: Yes: Well Nourished, Calm Eyes: Yes: WNL HENT: Yes: WNL Neck: Yes: WNL Cardiovascular: Yes: Regular Rate and Rhythm, S1, S2 Respiratory: Yes: CTA Bilaterally Gastrointestinal: Yes: Normal Bowel Sounds, Soft Extremities: Yes: WNL Edema: Yes Labs: CBC, BMP 10/27/17 07:00 10/27/17 07:00 INR, PTT INR 1.13 (0.82-1.09) 10/23/17 12:25 Problem List - Problems (1) Cardiac arrest Code(s): I46.9 - CARDIAC ARREST, CAUSE UNSPECIFIED (2) DKA (diabetic ketoacidoses) Code(s): E13.10 - OTH DIABETES MELLITUS WITH KETOACIDOSIS WITHOUT COMA Qualifiers: Diabetes mellitus type: type 1 Diabetes mellitus complication detail: with coma Qualified Code(s): E10.11 - Type 1 diabetes mellitus with ketoacidosis with coma (3) High anion gap metabolic acidosis Code(s): E87.2 - ACIDOSIS (4) Pneumonia Code(s): J18.9 - PNEUMONIA, UNSPECIFIED ORGANISM (5) ESRD (end stage renal disease) on dialysis Code(s): N18.6 - END STAGE RENAL DISEASE; Z99.2 - DEPENDENCE ON RENAL DIALYSIS (6) Anemia Code(s): D64.9 - ANEMIA, UNSPECIFIED Qualifiers: Folate deficiency anemia type: dietary (7) Diabetes mellitus, insulin dependent (IDDM), uncontrolled Code(s): E10.65 - TYPE 1 DIABETES MELLITUS WITH HYPERGLYCEMIA (8) HTN (hypertension) Code(s): I10 - ESSENTIAL (PRIMARY) HYPERTENSION Assessment/Plan ASSESSMENT AND PLAN: s/p Cardiopulmonary Arrest s/p Acute respiratory failure HHNK/DKA overlap Lactic Acidosis ESRD on HD Anemia HTN Seizure Disorder h/o PE Pulmonary Htn - O2 to keep Spo2 >90% - glucose control - HD per renal - antibiotics as per ID - DVT prophylaxis DR BECERRA
[2017-10-27] MEDS: NIFEdipine E.R. 90 MG TABLET (FP) PO SCH (12:02)
[2017-10-27] MEDS: LOSARTAN POTASSIUM 50 MG TABLET (FP) PO SCH (12:02)
--- NOTE | 2017-10-27 12:41 | PN ---
Progress Note (short form) - Note Progress Note: Renal follow up for ESRD on Hd Pt seen and examined at the bedside awake and alert no acute complaints s/p dialysis this am with 3.5L UF denies any sob, CP, abd pain, N/V/D has some pain in ribs Vital Signs Temperature 98.8 F 10/27/17 06:55 Pulse Rate 81 10/27/17 11:05 Respiratory Rate 18 10/27/17 11:05 Blood Pressure 161/77 10/27/17 11:05 O2 Sat by Pulse Oximetry (%) 99 10/26/17 22:00 Intake & Output 10/24/17 10/25/17 10/26/17 10/27/17 23:59 23:59 23:59 23:59 Intake Total 1019 900 670 300 Output Total 300 Balance 719 900 670 300 Weight 70.2 kg 68.946 kg 64.319 kg NAD awake and alert RRR, No M/R Dec BS, no rales soft NT.ND + edema in LE, no cyanoiss extremities are warm CBC, BMP 10/27/17 07:00 10/27/17 07:00 Current Medications Clonidine (Catapres -) 0.3 mg PO TID [facility] Last Admin: 10/27/17 05:55 Dose: 0.3 mg Collagenase (Santyl -) 1 applic TP DAILY [facility]; Protocol Heparin Sodium (Porcine) (Heparin -) 5,000 unit SQ TID [facility] Last Admin: 10/27/17 05:57 Dose: Not Given Hydralazine HCl (Apresoline -) 100 mg PO TID [facility] Last Admin: 10/27/17 05:56 Dose: 100 mg Sodium Chloride (Normal Saline -) 250 mls @ 3,000 mls/hr IV PRN PRN PRN Reason: Hypotension during Dialysis Stop: 10/27/17 16:42 Cefazolin Sodium 2 gm/ (Dextrose) 50 mls @ 100 mls/hr IVPB ONCE ONE Stop: 10/27/17 10:05 Insulin Aspart (Novolog Vial) 0 units SQ Q4HPO [facility]; Protocol Last Admin: 10/27/17 11:55 Dose: 4 units Insulin Detemir (Levemir Vial) 15 units SQ AM [facility] Last Admin: 10/27/17 05:59 Dose: 15 units Insulin Detemir (Levemir Vial) 5 units SQ HS [facility] Last Admin: 10/26/17 21:06 Dose: 5 units Labetalol HCl 400 mg/ (Labetalol HCl 100 mg) 500 mg PO TID [facility] Last Admin: 10/27/17 05:55 Dose: 500 mg Losartan Potassium (Cozaar -) 100 mg PO DAILY [facility] Last Admin: 10/27/17 12:02 Dose: 100 mg Nifedipine (Procardia Xl -) 90 mg PO DAILY [facility] Last Admin: 10/27/17 12:02 Dose: 90 mg Oxycodone HCl (Roxicodone -) 10 mg PO Q6H PRN PRN Reason: PAIN LEVEL 7 - 10 Last Admin: 10/27/17 05:56 Dose: 10 mg 27 year old AA woman with PMhx of ESRD on HD (secondary to DM), IDDM, Hypertension, PVD, Atrial thrombus who presented via EMS with AMS/ Unresponsiveness at home with cardiac arrest requiring CPR in the field. #Cardiac Arrest #Hyperglycemia/DKA #Lactic Acidosis #Hyperkalemia #ESRD on HD #Chronic Anemia #Recently diagnosed Osteomylitis s/p dialysis today with UF as tolerated Renal Diet, 1.2L fluid restriction will continue HD 3x weekly as inpatient rib X-ray pending continue Abx as per ID Physical therapy Nathan Vo DO
--- NOTE | 2017-10-27 12:53 | PN ---
Progress Note, Physician History of Present Illness: patient stable no new issues says feels weak - Current Medication List Current Medications: Active Medications Clonidine (Catapres -) 0.3 mg PO TID [facility] Last Admin: 10/27/17 05:55 Dose: 0.3 mg Collagenase (Santyl -) 1 applic TP DAILY [facility]; Protocol Heparin Sodium (Porcine) (Heparin -) 5,000 unit SQ TID [facility] Last Admin: 10/27/17 05:57 Dose: Not Given Hydralazine HCl (Apresoline -) 100 mg PO TID [facility] Last Admin: 10/27/17 05:56 Dose: 100 mg Sodium Chloride (Normal Saline -) 250 mls @ 3,000 mls/hr IV PRN PRN PRN Reason: Hypotension during Dialysis Stop: 10/27/17 16:42 Cefazolin Sodium 2 gm/ (Dextrose) 50 mls @ 100 mls/hr IVPB ONCE ONE Stop: 10/27/17 10:05 Insulin Aspart (Novolog Vial) 0 units SQ Q4HPO [facility]; Protocol Last Admin: 10/27/17 11:55 Dose: 4 units Insulin Detemir (Levemir Vial) 15 units SQ AM [facility] Last Admin: 10/27/17 05:59 Dose: 15 units Insulin Detemir (Levemir Vial) 5 units SQ HS [facility] Last Admin: 10/26/17 21:06 Dose: 5 units Labetalol HCl 400 mg/ (Labetalol HCl 100 mg) 500 mg PO TID [facility] Last Admin: 10/27/17 05:55 Dose: 500 mg Losartan Potassium (Cozaar -) 100 mg PO DAILY [facility] Last Admin: 10/27/17 12:02 Dose: 100 mg Nifedipine (Procardia Xl -) 90 mg PO DAILY [facility] Last Admin: 10/27/17 12:02 Dose: 90 mg Oxycodone HCl (Roxicodone -) 10 mg PO Q6H PRN PRN Reason: PAIN LEVEL 7 - 10 Last Admin: 10/27/17 05:56 Dose: 10 mg - Objective Vital Signs: Vital Signs Temperature 98.8 F 10/27/17 06:55 Pulse Rate 81 10/27/17 11:05 Respiratory Rate 18 10/27/17 11:05 Blood Pressure 161/77 10/27/17 11:05 O2 Sat by Pulse Oximetry (%) 99 10/26/17 22:00 Constitutional: Yes: Calm, Mild Distress Cardiovascular: Yes: Regular Rate and Rhythm Respiratory: Yes: Regular, CTA Bilaterally Gastrointestinal: Yes: Normal Bowel Sounds, Soft Musculoskeletal: Yes: Other Extremities: Yes: Other Wound/Incision: Yes: Dressing Dry and Intact Neurological: Yes: Alert, Oriented Psychiatric: Yes: Alert, Oriented Labs: CBC, BMP 10/27/17 07:00 10/27/17 07:00 INR, PTT INR 1.13 (0.82-1.09) 10/23/17 12:25 Assessment/Plan Problem List - Problems (1) Cardiac arrest Code(s): I46.9 - CARDIAC ARREST, CAUSE UNSPECIFIED (2) DKA (diabetic ketoacidoses) Code(s): E13.10 - OTH DIABETES MELLITUS WITH KETOACIDOSIS WITHOUT COMA Qualifiers: Diabetes mellitus type: type 1 Diabetes mellitus complication detail: with coma Qualified Code(s): E10.11 - Type 1 diabetes mellitus with ketoacidosis with coma (3) ESRD (end stage renal disease) on dialysis Code(s): N18.6 - END STAGE RENAL DISEASE; Z99.2 - DEPENDENCE ON RENAL DIALYSIS (4) Anemia Code(s): D64.9 - ANEMIA, UNSPECIFIED Qualifiers: Folate deficiency anemia type: dietary (5) Diabetes mellitus, insulin dependent (IDDM), uncontrolled Code(s): E10.65 - TYPE 1 DIABETES MELLITUS WITH HYPERGLYCEMIA (6) Diabetic foot ulcer Code(s): E11.621 - TYPE 2 DIABETES MELLITUS WITH FOOT ULCER; L97.509 - NON- PRESSURE CHRONIC ULCER OTH PRT UNSP FOOT W UNSP SEVERITY (7) HTN (hypertension) Code(s): I10 - ESSENTIAL (PRIMARY) HYPERTENSION Assessment/Plan Pt is a 27 y.o. female with IDDM, ESRD on HD, seizure d.o. PE, PVD, Atrial thrombosis, cardiac myxoma, currently on Cefazolin during HD for Rt foot infected plantar ulcer/OM, brought in by EMS after found initially unresponsive by mother and then pulseless necessitating CPR. Pt intubated in ER for hypoxia and obtundation. Antibiotics initiated while undergoing sepsis workup and other management. continue abx as before patient gets it during dialysis finish the course as planned rest as per the team
--- NOTE | 2017-10-27 18:58 | CON.PSY ---
Psychiatry Consult Chief Complaint: 27 year old with Severe DM, seen for Psych eval for non compliance with meds and diet, also spoke with her mother with whom she lives. Symptoms: reports: Oppositionalism - Previous Psychiatric Treatment Outpatient: None Inpatient: None - Previous Substance Abuse Treatment Outpatient: None Inpatient: None - Current Medications Current Medications: Active Medications Clonidine (Catapres -) 0.3 mg PO TID [facility] Last Admin: 10/27/17 13:44 Dose: 0.3 mg Collagenase (Santyl -) 1 applic TP DAILY [facility]; Protocol Last Admin: 10/27/17 11:00 Dose: Not Given Heparin Sodium (Porcine) (Heparin -) 5,000 unit SQ TID [facility] Last Admin: 10/27/17 13:45 Dose: Not Given Hydralazine HCl (Apresoline -) 100 mg PO TID [facility] Last Admin: 10/27/17 13:45 Dose: 100 mg Sodium Chloride (Normal Saline -) 250 mls @ 3,000 mls/hr IV PRN PRN PRN Reason: Hypotension during Dialysis Stop: 10/27/17 16:42 Cefazolin Sodium 2 gm/ (Dextrose) 50 mls @ 100 mls/hr IVPB ONCE ONE Stop: 10/27/17 10:05 Insulin Aspart (Novolog Vial) 0 units SQ Q4HPO [facility]; Protocol Last Admin: 10/27/17 17:18 Dose: 4 units Insulin Detemir (Levemir Vial) 15 units SQ AM [facility] Last Admin: 10/27/17 05:59 Dose: 15 units Insulin Detemir (Levemir Vial) 5 units SQ HS [facility] Last Admin: 10/26/17 21:06 Dose: 5 units Labetalol HCl 400 mg/ (Labetalol HCl 100 mg) 500 mg PO TID [facility] Last Admin: 10/27/17 13:44 Dose: 500 mg Losartan Potassium (Cozaar -) 100 mg PO DAILY [facility] Last Admin: 10/27/17 12:02 Dose: 100 mg Nifedipine (Procardia Xl -) 90 mg PO DAILY [facility] Last Admin: 10/27/17 12:02 Dose: 90 mg Oxycodone HCl (Roxicodone -) 10 mg PO Q6H PRN PRN Reason: PAIN LEVEL 7 - 10 Last Admin: 10/27/17 13:42 Dose: 10 mg - Allergies Allergies: Allergies Allergy/AdvReac Type Severity Reaction Status Date / Time No Known Drug Allergies Allergy Verified 10/23/17 14:33 lactose AdvReac Verified 10/23/17 14:33 - Current Living Status Usual Living Arrangement: With Parent - Current Mental Status Evaluation Appearance: Well Groomed Attitude: Cooperative - Affect Affect: Constrictive Appropriateness: Appropriate to Content - Mood Mood: Euthymic - Speech/Language Expressive: Coherent - Psychomotor Activity Psychomotor Activity: Slowed - Thought Process Thought Process: Intact - Thought Content Hallucinations: Absent Delusions: Absent - Self Perception Self Perception: No Impairment - Cognition Attention: Alert Orientation: Time Memory, Immediate Recall: Intact - Concentration Serial Sevens Intact: Yes Simple Calculations Intact: Yes - Abstraction Proverb Interpretation: Intact Judgement: Minimally Impaired - Insight Insight: Intact - Impulse Control Impulse Control: Minimally Impaired - Suicidal Ideation Suicidal Ideation: No - Homicidal Ideation Homicidal Ideation: No Assessment/Plan 1) patient is not suffering from any acute Psych disorders at this time. 2) she is mentally competent and is capable of understanding the consequences of non compliance. 3) No psych treatment is offered because she does not want any therapy or going to be compliant .
[2017-10-28] MEDS: INSULIN (NOVOLOG) ASPART 100 UNITS/ML 10ML VIAL SQ SCH ×3 (01:54→09:10)
[2017-10-28] MEDS ORDERED: LABETALOL HCL 100 MG TABLET (FP) ONE ×3 (06:30→22:47)
[2017-10-28] MEDS ORDERED: LABETALOL HCL 200 MG TABLET (FP) ONE ×3 (06:30→22:47)
[2017-10-28] MEDS: LABETALOL HCL PO SCH ×3 (06:47→22:57)
[2017-10-28] MEDS: cloNIDine HCL 0.1 MG TABLET PO SCH ×3 (06:48→22:57)
[2017-10-28] MEDS: hydrALAZINE HCL 50 MG TABLET (FP) PO SCH ×3 (06:48→22:58)
[2017-10-28] MEDS: HEPARIN NA (PORCINE) 5,000 UNITS/ML 1ML VIAL SQ SCH ×4 (06:48→23:00)
[2017-10-28] MEDS: INSULIN (LEVEMIR) 100 UNITS/ML UNITS SQ SCH ×2 (06:50→22:57)
[2017-10-28] MEDS: NIFEdipine E.R. 90 MG TABLET (FP) PO SCH (09:11)
[2017-10-28] MEDS: LOSARTAN POTASSIUM 50 MG TABLET (FP) PO SCH (09:11)
--- NOTE | 2017-10-28 09:31 | PN ---
Progress Note, Physician Chief Complaint: REFUSED HER MORNING MEDS NO SPECIFIC REASON OTHER THAN "I DON'T FEEL LIKE IT" PSYCHIATRY EVALUATED PATIENT YESTERDAY AND NO SIGNS OF PSYCHIATRIC D/O PER DR. KEANE - Current Medication List Current Medications: Active Medications Clonidine (Catapres -) 0.3 mg PO TID [facility] Last Admin: 10/28/17 06:48 Dose: 0.3 mg Collagenase (Santyl -) 1 applic TP DAILY [facility]; Protocol Last Admin: 10/27/17 11:00 Dose: Not Given Heparin Sodium (Porcine) (Heparin -) 5,000 unit SQ TID [facility] Last Admin: 10/28/17 06:48 Dose: Not Given Hydralazine HCl (Apresoline -) 100 mg PO TID [facility] Last Admin: 10/28/17 06:48 Dose: 100 mg Sodium Chloride (Normal Saline -) 250 mls @ 3,000 mls/hr IV PRN PRN PRN Reason: Hypotension during Dialysis Stop: 10/27/17 16:42 Cefazolin Sodium 2 gm/ (Dextrose) 50 mls @ 100 mls/hr IVPB ONCE ONE Stop: 10/27/17 10:05 Insulin Aspart (Novolog Vial) 0 units SQ Q4HPO [facility]; Protocol Last Admin: 10/28/17 06:49 Dose: 3 units Insulin Detemir (Levemir Vial) 15 units SQ AM [facility] Last Admin: 10/28/17 06:50 Dose: 15 units Insulin Detemir (Levemir Vial) 5 units SQ HS [facility] Last Admin: 10/27/17 21:18 Dose: 5 units Labetalol HCl 400 mg/ (Labetalol HCl 100 mg) 500 mg PO TID [facility] Last Admin: 10/28/17 06:47 Dose: 500 mg Losartan Potassium (Cozaar -) 100 mg PO DAILY [facility] Last Admin: 10/28/17 09:11 Dose: Not Given Nifedipine (Procardia Xl -) 90 mg PO DAILY [facility] Last Admin: 10/28/17 09:11 Dose: Not Given Oxycodone HCl (Roxicodone -) 10 mg PO Q6H PRN PRN Reason: PAIN LEVEL 7 - 10 Last Admin: 10/27/17 21:13 Dose: 10 mg - Objective Vital Signs: Vital Signs Temperature 98.5 F 10/28/17 05:20 Pulse Rate 85 10/28/17 05:20 Respiratory Rate 18 10/28/17 05:20 Blood Pressure 153/63 10/28/17 05:20 O2 Sat by Pulse Oximetry (%) 97 10/27/17 22:00 Constitutional: Yes: Other Eyes: Yes: WNL HENT: Yes: WNL Neck: Yes: WNL Cardiovascular: Yes: WNL Respiratory: Yes: On Nasal O2, SOB Gastrointestinal: Yes: WNL Genitourinary: Yes: Other Musculoskeletal: Yes: Muscle Weakness Extremities: Yes: Other Edema: Yes Integumentary: Yes: Venous Stasis Changes Wound/Incision: Yes: Clean/Dry Neurological: Yes: Weakness ...Motor Strength: LLE, RLE Psychiatric: Yes: Other Labs: CBC, BMP 10/27/17 07:00 10/27/17 07:00 INR, PTT INR 1.13 (0.82-1.09) 10/23/17 12:25 Problem List - Problems (1) Cardiac arrest Code(s): I46.9 - CARDIAC ARREST, CAUSE UNSPECIFIED (2) DKA (diabetic ketoacidoses) Code(s): E13.10 - OTH DIABETES MELLITUS WITH KETOACIDOSIS WITHOUT COMA Qualifiers: Diabetes mellitus type: type 1 Diabetes mellitus complication detail: with coma Qualified Code(s): E10.11 - Type 1 diabetes mellitus with ketoacidosis with coma (3) High anion gap metabolic acidosis Code(s): E87.2 - ACIDOSIS (4) ESRD (end stage renal disease) on dialysis Code(s): N18.6 - END STAGE RENAL DISEASE; Z99.2 - DEPENDENCE ON RENAL DIALYSIS (5) Anemia Code(s): D64.9 - ANEMIA, UNSPECIFIED Qualifiers: Folate deficiency anemia type: dietary (6) Diabetes mellitus, insulin dependent (IDDM), uncontrolled Code(s): E10.65 - TYPE 1 DIABETES MELLITUS WITH HYPERGLYCEMIA Assessment/Plan PSYCHIATRY F/U MEDS REVIEWED D/W NURSE TO TRY AGAIN TO DISPENSE MEDS AFTER PATIENT REFUSED MORNING MEDS. DIABETIC DIET NUTRITION EVAL/MENU D/W PATIENT COMPLIANCE WITH MEDS/DIET ENFORCED HD PER RENAL DC PLANNING IF ABX COMPLETED ID F/U
[2017-10-28] MEDS: COLLAGENASE CLOSTRIDIUM HIST. 30 GRAMS TUBE TP SCH (10:00)
[2017-10-28] MEDS: oxyCODONE HCL 5 MG TABLET PO PRN ×2 (11:42→22:58)
--- NOTE | 2017-10-28 12:42 | PN ---
Progress Note, Physician History of Present Illness: PULMONARY ALERT,FEELING BETTER,MILD CP,MIN SEGURA - Current Medication List Current Medications: Active Medications Clonidine (Catapres -) 0.3 mg PO TID [facility] Last Admin: 10/28/17 06:48 Dose: 0.3 mg Collagenase (Santyl -) 1 applic TP DAILY [facility]; Protocol Last Admin: 10/27/17 11:00 Dose: Not Given Heparin Sodium (Porcine) (Heparin -) 5,000 unit SQ TID [facility] Last Admin: 10/28/17 06:48 Dose: Not Given Hydralazine HCl (Apresoline -) 100 mg PO TID [facility] Last Admin: 10/28/17 06:48 Dose: 100 mg Sodium Chloride (Normal Saline -) 250 mls @ 3,000 mls/hr IV PRN PRN PRN Reason: Hypotension during Dialysis Stop: 10/27/17 16:42 Cefazolin Sodium 2 gm/ (Dextrose) 50 mls @ 100 mls/hr IVPB ONCE ONE Stop: 10/27/17 10:05 Insulin Aspart (Novolog Vial) 0 units SQ Q4HPO [facility]; Protocol Last Admin: 10/28/17 09:10 Dose: Not Given Insulin Detemir (Levemir Vial) 15 units SQ AM [facility] Last Admin: 10/28/17 06:50 Dose: 15 units Insulin Detemir (Levemir Vial) 5 units SQ HS [facility] Last Admin: 10/27/17 21:18 Dose: 5 units Labetalol HCl 400 mg/ (Labetalol HCl 100 mg) 500 mg PO TID [facility] Last Admin: 10/28/17 06:47 Dose: 500 mg Losartan Potassium (Cozaar -) 100 mg PO DAILY [facility] Last Admin: 10/28/17 09:11 Dose: Not Given Nifedipine (Procardia Xl -) 90 mg PO DAILY [facility] Last Admin: 10/28/17 09:11 Dose: Not Given Oxycodone HCl (Roxicodone -) 10 mg PO Q6H PRN PRN Reason: PAIN LEVEL 7 - 10 Last Admin: 10/28/17 11:42 Dose: 10 mg - Objective Vital Signs: Vital Signs Temperature 98.5 F 10/28/17 05:20 Pulse Rate 85 10/28/17 05:20 Respiratory Rate 18 10/28/17 05:20 Blood Pressure 153/63 10/28/17 05:20 O2 Sat by Pulse Oximetry (%) 97 10/27/17 22:00 Constitutional: Yes: Calm, Thin Eyes: Yes: WNL HENT: Yes: WNL Neck: Yes: WNL Cardiovascular: Yes: Regular Rate and Rhythm, S1, S2 Respiratory: Yes: Rales (FEW BBASILAR CRACKLES) Gastrointestinal: Yes: Normal Bowel Sounds, Soft Extremities: Yes: WNL Edema: Yes Labs: CBC, BMP Problem List - Problems (1) Cardiac arrest Code(s): I46.9 - CARDIAC ARREST, CAUSE UNSPECIFIED (2) DKA (diabetic ketoacidoses) Code(s): E13.10 - OTH DIABETES MELLITUS WITH KETOACIDOSIS WITHOUT COMA Qualifiers: Diabetes mellitus type: type 1 Diabetes mellitus complication detail: with coma Qualified Code(s): E10.11 - Type 1 diabetes mellitus with ketoacidosis with coma (3) High anion gap metabolic acidosis Code(s): E87.2 - ACIDOSIS (4) Pneumonia Code(s): J18.9 - PNEUMONIA, UNSPECIFIED ORGANISM (5) ESRD (end stage renal disease) on dialysis Code(s): N18.6 - END STAGE RENAL DISEASE; Z99.2 - DEPENDENCE ON RENAL DIALYSIS (6) Anemia Code(s): D64.9 - ANEMIA, UNSPECIFIED Qualifiers: Folate deficiency anemia type: dietary (7) Diabetes mellitus, insulin dependent (IDDM), uncontrolled Code(s): E10.65 - TYPE 1 DIABETES MELLITUS WITH HYPERGLYCEMIA (8) HTN (hypertension) Code(s): I10 - ESSENTIAL (PRIMARY) HYPERTENSION Assessment/Plan ASSESSMENT AND PLAN: s/p Cardiopulmonary Arrest s/p Acute respiratory failure HHNK/DKA overlap Lactic Acidosis ESRD on HD Anemia HTN Seizure Disorder h/o PE Pulmonary Htn - O2 to keep Spo2 >90% - glucose control - HD per renal - antibiotics as per ID - DVT prophylaxis DR BECERRA
[2017-10-28] MEDS ORDERED: SODIUM CHLORIDE 250 ML IV PRN (15:38)
--- NOTE | 2017-10-28 15:39 | PN ---
Progress Note (short form) - Note Progress Note: Renal follow up for ESRD on Hd Pt seen and examined at the bedside awake and alert continues to have mild chest discomfort with inspiration no sob, abd pain, N/V/D s/p dialysis yesterday w/o issues Vital Signs Temperature 97.7 F 10/28/17 14:00 Pulse Rate 86 10/28/17 14:00 Respiratory Rate 18 10/28/17 10:00 Blood Pressure 123/58 10/28/17 14:00 O2 Sat by Pulse Oximetry (%) 97 10/28/17 10:00 Intake & Output 10/25/17 10/26/17 10/27/17 10/28/17 23:59 23:59 23:59 23:59 Intake Total 900 670 620 180 Balance 900 670 620 180 Weight 68.946 kg 64.319 kg NAD awake and alert RRR, No M/R Dec BS, no rales soft NT.ND + edema in LE, no cyanoiss extremities are warm CBC, BMP 10/27/17 07:00 10/27/17 07:00 Current Medications Clonidine (Catapres -) 0.3 mg PO TID [facility] Last Admin: 10/28/17 14:26 Dose: 0.3 mg Collagenase (Santyl -) 1 applic TP DAILY [facility]; Protocol Last Admin: 10/28/17 10:00 Dose: Not Given Heparin Sodium (Porcine) (Heparin -) 5,000 unit SQ TID [facility] Last Admin: 10/28/17 14:25 Dose: Not Given Hydralazine HCl (Apresoline -) 100 mg PO TID [facility] Last Admin: 10/28/17 14:26 Dose: 100 mg Sodium Chloride (Normal Saline -) 250 mls @ 3,000 mls/hr IV PRN PRN PRN Reason: Hypotension during Dialysis Stop: 10/27/17 16:42 Cefazolin Sodium 2 gm/ (Dextrose) 50 mls @ 100 mls/hr IVPB ONCE ONE Stop: 10/27/17 10:05 Insulin Aspart (Novolog Vial) 1 units SQ [facility]; Protocol Insulin Detemir (Levemir Vial) 15 units SQ AM [facility] Last Admin: 10/28/17 06:50 Dose: 15 units Insulin Detemir (Levemir Vial) 5 units SQ HS [facility] Last Admin: 10/27/17 21:18 Dose: 5 units Labetalol HCl 400 mg/ (Labetalol HCl 100 mg) 500 mg PO TID [facility] Last Admin: 10/28/17 14:26 Dose: 500 mg Losartan Potassium (Cozaar -) 100 mg PO DAILY [facility] Last Admin: 10/28/17 09:11 Dose: Not Given Nifedipine (Procardia Xl -) 90 mg PO DAILY [facility] Last Admin: 10/28/17 09:11 Dose: Not Given Oxycodone HCl (Roxicodone -) 10 mg PO Q6H PRN PRN Reason: PAIN LEVEL 7 - 10 Last Admin: 10/28/17 11:42 Dose: 10 mg 27 year old AA woman with PMhx of ESRD on HD (secondary to DM), IDDM, Hypertension, PVD, Atrial thrombus who presented via EMS with AMS/ Unresponsiveness at home with cardiac arrest requiring CPR in the field. #Cardiac Arrest #Hyperglycemia/DKA #Lactic Acidosis #Hyperkalemia #ESRD on HD #Chronic Anemia #Recently diagnosed Osteomylitis no indication for [employer] today, next treatment planned for tomorrow Renal diet, 1.2L fluid restriction DM mangement as per endocrine Cardiology follow up X-rays show possible subacute fractures, pain management will continue Abx with HD ID follow up Nathan Vo DO
--- NOTE | 2017-10-28 16:08 | PN ---
Progress Note, Physician History of Present Illness: patient stable no new issues - Current Medication List Current Medications: Active Medications Cefazolin Sodium/Dextrose (Ancef 2 Gm Premixed Ivpb -) 2 gm IVPB ONCE ONE Stop: 10/29/17 08:01 Clonidine (Catapres -) 0.3 mg PO TID [facility] Last Admin: 10/28/17 14:26 Dose: 0.3 mg Collagenase (Santyl -) 1 applic TP DAILY [facility]; Protocol Last Admin: 10/28/17 10:00 Dose: Not Given Epoetin Abiel (Epogen -) 10,000 unit IVPUSH ONCE ONE Stop: 10/29/17 06:01 Heparin Sodium (Porcine) (Heparin -) 5,000 unit SQ TID [facility] Last Admin: 10/28/17 14:25 Dose: Not Given Hydralazine HCl (Apresoline -) 100 mg PO TID [facility] Last Admin: 10/28/17 14:26 Dose: 100 mg Sodium Chloride (Normal Saline -) 250 mls @ 3,000 mls/hr IV PRN PRN PRN Reason: Hypotension during Dialysis Stop: 10/29/17 15:39 Insulin Aspart (Novolog Vial) 1 units SQ A[facility]; Protocol Insulin Detemir (Levemir Vial) 15 units SQ AM [facility] Last Admin: 10/28/17 06:50 Dose: 15 units Insulin Detemir (Levemir Vial) 5 units SQ HS [facility] Last Admin: 10/27/17 21:18 Dose: 5 units Labetalol HCl 400 mg/ (Labetalol HCl 100 mg) 500 mg PO TID [facility] Last Admin: 10/28/17 14:26 Dose: 500 mg Losartan Potassium (Cozaar -) 100 mg PO DAILY [facility] Last Admin: 10/28/17 09:11 Dose: Not Given Nifedipine (Procardia Xl -) 90 mg PO DAILY [facility] Last Admin: 10/28/17 09:11 Dose: Not Given Oxycodone HCl (Roxicodone -) 10 mg PO Q6H PRN PRN Reason: PAIN LEVEL 7 - 10 Last Admin: 10/28/17 11:42 Dose: 10 mg - Objective Vital Signs: Vital Signs Temperature 97.7 F 10/28/17 14:00 Pulse Rate 86 10/28/17 14:00 Respiratory Rate 18 10/28/17 10:00 Blood Pressure 123/58 10/28/17 14:00 O2 Sat by Pulse Oximetry (%) 97 10/28/17 10:00 Constitutional: Yes: No Distress, Calm Cardiovascular: Yes: Regular Rate and Rhythm Respiratory: Yes: Regular, CTA Bilaterally Gastrointestinal: Yes: Normal Bowel Sounds, Soft Musculoskeletal: Yes: WNL Extremities: Yes: WNL Wound/Incision: Yes: Dressing Dry and Intact Neurological: Yes: Alert Psychiatric: Yes: Alert, Oriented Labs: CBC, BMP 10/27/17 07:00 10/27/17 07:00 INR, PTT INR 1.13 (0.82-1.09) 10/23/17 12:25 Assessment/Plan Problem List - Problems (1) Cardiac arrest Code(s): I46.9 - CARDIAC ARREST, CAUSE UNSPECIFIED (2) DKA (diabetic ketoacidoses) Code(s): E13.10 - OTH DIABETES MELLITUS WITH KETOACIDOSIS WITHOUT COMA Qualifiers: Diabetes mellitus type: type 1 Diabetes mellitus complication detail: with coma Qualified Code(s): E10.11 - Type 1 diabetes mellitus with ketoacidosis with coma (3) ESRD (end stage renal disease) on dialysis Code(s): N18.6 - END STAGE RENAL DISEASE; Z99.2 - DEPENDENCE ON RENAL DIALYSIS (4) Anemia Code(s): D64.9 - ANEMIA, UNSPECIFIED Qualifiers: Folate deficiency anemia type: dietary (5) Diabetes mellitus, insulin dependent (IDDM), uncontrolled Code(s): E10.65 - TYPE 1 DIABETES MELLITUS WITH HYPERGLYCEMIA (6) Diabetic foot ulcer Code(s): E11.621 - TYPE 2 DIABETES MELLITUS WITH FOOT ULCER; L97.509 - NON- PRESSURE CHRONIC ULCER OTH PRT UNSP FOOT W UNSP SEVERITY (7) HTN (hypertension) Code(s): I10 - ESSENTIAL (PRIMARY) HYPERTENSION Assessment/Plan Pt is a 27 y.o. female with IDDM, ESRD on HD, seizure d.o. PE, PVD, Atrial thrombosis, cardiac myxoma, currently on Cefazolin during HD for Rt foot infected plantar ulcer/OM, brought in by EMS after found initially unresponsive by mother and then pulseless necessitating CPR. Pt intubated in ER for hypoxia and obtundation. Antibiotics initiated while undergoing sepsis workup and other management. continue abx as before patient gets it during dialysis finish the course as planned rest as per the team
[2017-10-28] MEDS ORDERED: INSULIN (NOVOLOG) ASPART 100 UNITS/ML 10ML VIAL SQ SCH (16:30)
[2017-10-28] MEDS ORDERED: INSULIN SLIDING SCALE (NOVOLOG) 1 VIAL SQ SCH (17:26)
[2017-10-28] MEDS: INSULIN SLIDING SCALE (NOVOLOG) 1 VIAL SQ SCH ×2 (17:45→22:56)
[2017-10-28] MEDS ORDERED: diphenhydrAMINE HCL 25 MG CAPSULE (FP) PO ONE (23:45)
[2017-10-29] MEDS ORDERED: EPOETIN ALFA 10,000 UNIT/1 ML VIAL IVPUSH ONE (06:00)
[2017-10-29] MEDS: HEPARIN NA (PORCINE) 5,000 UNITS/ML 1ML VIAL SQ SCH ×2 (06:46→15:00)
[2017-10-29] MEDS ORDERED: LABETALOL HCL 200 MG TABLET (FP) ONE ×2 (06:47→15:36)
[2017-10-29] MEDS ORDERED: LABETALOL HCL 100 MG TABLET (FP) ONE ×2 (06:48→15:36)
[2017-10-29] MEDS: cloNIDine HCL 0.1 MG TABLET PO SCH ×2 (06:51→15:41)
[2017-10-29] MEDS: LABETALOL HCL PO SCH ×2 (06:51→15:42)
[2017-10-29] MEDS: hydrALAZINE HCL 50 MG TABLET (FP) PO SCH ×2 (06:51→15:42)
[2017-10-29] MEDS: oxyCODONE HCL 5 MG TABLET PO PRN ×2 (06:52→18:10)
[2017-10-29] MEDS: INSULIN (LEVEMIR) 100 UNITS/ML UNITS SQ SCH (06:54)
[2017-10-29] MEDS ORDERED: INSULIN (NOVOLOG) ASPART 100 UNITS/ML 10ML VIAL ONE ×3 (06:57→17:43)
[2017-10-29] MEDS: INSULIN SLIDING SCALE (NOVOLOG) 1 VIAL SQ SCH ×3 (07:17→17:54)
--- NOTE | 2017-10-29 08:36 | PN ---
Progress Note, Physician Chief Complaint: Respiratory failure DKA Diabetic foot ulcer History of Present Illness: NAD appears comfortable on Nasal O2 Pain improved in her back and chest Seen by podiatry for bedside debridement Refusing Physical therapy - Current Medication List Current Medications: Active Medications Cefazolin Sodium/Dextrose (Ancef 2 Gm Premixed Ivpb -) 2 gm IVPB ONCE ONE Stop: 10/29/17 08:01 Clonidine (Catapres -) 0.3 mg PO TID [facility] Last Admin: 10/29/17 06:51 Dose: 0.3 mg Collagenase (Santyl -) 1 applic TP DAILY [facility]; Protocol Last Admin: 10/28/17 10:00 Dose: Not Given Epoetin Abiel (Epogen -) 10,000 unit IVPUSH ONCE ONE Stop: 10/29/17 06:01 Heparin Sodium (Porcine) (Heparin -) 5,000 unit SQ TID [facility] Last Admin: 10/29/17 06:46 Dose: Not Given Hydralazine HCl (Apresoline -) 100 mg PO TID [facility] Last Admin: 10/29/17 06:51 Dose: 100 mg Sodium Chloride (Normal Saline -) 250 mls @ 3,000 mls/hr IV PRN PRN PRN Reason: Hypotension during Dialysis Stop: 10/29/17 15:39 Insulin Aspart (Novolog Vial Sliding Scale -) 1 vial SQ ACHS [facility]; Protocol Last Admin: 10/29/17 07:17 Dose: 2 unit Insulin Detemir (Levemir Vial) 15 units SQ AM [facility] Last Admin: 10/29/17 06:54 Dose: 15 units Insulin Detemir (Levemir Vial) 5 units SQ HS [facility] Last Admin: 10/28/17 22:57 Dose: 5 units Labetalol HCl 400 mg/ (Labetalol HCl 100 mg) 500 mg PO TID [facility] Last Admin: 10/29/17 06:51 Dose: 500 mg Losartan Potassium (Cozaar -) 100 mg PO DAILY [facility] Last Admin: 10/28/17 09:11 Dose: Not Given Nifedipine (Procardia Xl -) 90 mg PO DAILY [facility] Last Admin: 10/28/17 09:11 Dose: Not Given Oxycodone HCl (Roxicodone -) 10 mg PO Q6H PRN PRN Reason: PAIN LEVEL 7 - 10 Last Admin: 10/29/17 06:52 Dose: 10 mg - Objective Vital Signs: Vital Signs Temperature 97.9 F 10/29/17 06:13 Pulse Rate 87 10/29/17 06:13 Respiratory Rate 20 10/29/17 06:13 Blood Pressure 154/96 10/29/17 06:13 O2 Sat by Pulse Oximetry (%) 98 10/28/17 22:00 Constitutional: Yes: Well Nourished, No Distress, Calm Cardiovascular: Yes: Regular Rate and Rhythm Respiratory: Yes: Regular Gastrointestinal: Yes: Normal Bowel Sounds, Soft Musculoskeletal: Yes: WNL Extremities: Yes: WNL Edema: No Neurological: Yes: Alert, Oriented Psychiatric: Yes: Alert, Oriented Labs: CBC, BMP 10/27/17 07:00 10/27/17 07:00 INR, PTT INR 1.13 (0.82-1.09) 10/23/17 12:25 Problem List - Problems (1) Respiratory failure Assessment/Plan: -On nasal O2 -Seen by Pulmonary Code(s): J96.90 - RESPIRATORY FAILURE, UNSP, UNSP W HYPOXIA OR HYPERCAPNIA (2) DKA (diabetic ketoacidoses) Assessment/Plan: -Endocrinology on board -RD consult -[facility] ACHS -Insulin levemir and novolog -Diabetic diet Code(s): E13.10 - OTH DIABETES MELLITUS WITH KETOACIDOSIS WITHOUT COMA Qualifiers: Diabetes mellitus type: type 1 Diabetes mellitus complication detail: with coma Qualified Code(s): E10.11 - Type 1 diabetes mellitus with ketoacidosis with coma (3) ESRD (end stage renal disease) on dialysis Assessment/Plan: -On HD -Nephrology on board Code(s): N18.6 - END STAGE RENAL DISEASE; Z99.2 - DEPENDENCE ON RENAL DIALYSIS (4) Diabetic foot ulcer Assessment/Plan: -podiatry consult appreciated -is currently being treated with IV abx for Osteomyelitis on dialysis days Code(s): E11.621 - TYPE 2 DIABETES MELLITUS WITH FOOT ULCER; L97.509 - NON- PRESSURE CHRONIC ULCER OTH PRT UNSP FOOT W UNSP SEVERITY (5) Diabetes mellitus, insulin dependent (IDDM), uncontrolled Assessment/Plan: -Endocrinology on board -RD consult -[facility] ACHS -Insulin levemir and novolog -Diabetic diet Code(s): E10.65 - TYPE 1 DIABETES MELLITUS WITH HYPERGLYCEMIA (6) Anemia Assessment/Plan: -ESR, ASHOK and CD -Avoid venofer due to bacteremia -stool ob -monitor trend -Ferrous sulfate 325 mg po daily Code(s): D64.9 - ANEMIA, UNSPECIFIED Qualifiers: Folate deficiency anemia type: dietary Assessment/Plan see problem list Physical therapy
[2017-10-29] MEDS ORDERED: ceFAZolin 2 GRAM PREMIX BAG IVPB ONE (09:30)
[2017-10-29] MEDS: COLLAGENASE CLOSTRIDIUM HIST. 30 GRAMS TUBE TP SCH (10:00)
[2017-10-29] MEDS: LOSARTAN POTASSIUM 50 MG TABLET (FP) PO SCH ×2 (10:00→17:54)
[2017-10-29] MEDS: NIFEdipine E.R. 90 MG TABLET (FP) PO SCH ×2 (10:00→17:54)
[2017-10-29] MEDS ORDERED: FERROUS SO4 325 MG TABLET (FP) PO SCH (10:00)
[2017-10-29 11:08] LABS: HEMATOCRIT 27.1 % (32.4-45.2); HEMOGLOBIN 8.7 GM/dL (10.7-15.3); MCH 28.1 pg (25.7-33.7); MEAN CELL VOLUME 87.8 fl (80-96); MEAN PLT VOLUME 9.4 fl (7.5-11.1); PLATELET COUNT 265 K/MM3 (134-434); RBC 3.09 M/mm3 (3.60-5.2); RDW 16.5 % (11.6-15.6)
[2017-10-29 11:33] LABS: ANION GAP 12 (8-16); BLOOD UREA NITROGEN 51 mg/dL (7-18); CALCIUM 8.5 mg/dL (8.5-10.1); CHLORIDE 97 mmol/L (98-107); CO2 27 mmol/L (21-32); CREATININE 5.2 mg/dL (0.55-1.02); GLUCOSE,RANDOM 67 mg/dL (74-106); PHOSPHOROUS 5.9 mg/dL (2.5-4.9); POTASSIUM 4.4 mmol/L (3.5-5.1); SODIUM 136 mmol/L (136-145)
--- NOTE | 2017-10-29 12:27 | PN ---
Progress Note, Physician History of Present Illness: PULMONARY ALERT,NO DISTRESS,-CP,-SOB. ON HD - Current Medication List Current Medications: Active Medications Clonidine (Catapres -) 0.3 mg PO TID [facility] Last Admin: 10/29/17 06:51 Dose: 0.3 mg Collagenase (Santyl -) 1 applic TP DAILY [facility]; Protocol Last Admin: 10/28/17 10:00 Dose: Not Given Ferrous Sulfate (Feosol -) 325 mg PO DAILY [facility] Heparin Sodium (Porcine) (Heparin -) 5,000 unit SQ TID [facility] Last Admin: 10/29/17 06:46 Dose: Not Given Hydralazine HCl (Apresoline -) 100 mg PO TID [facility] Last Admin: 10/29/17 06:51 Dose: 100 mg Sodium Chloride (Normal Saline -) 250 mls @ 3,000 mls/hr IV PRN PRN PRN Reason: Hypotension during Dialysis Stop: 10/29/17 15:39 Insulin Aspart (Novolog Vial Sliding Scale -) 1 vial SQ [facility]; Protocol Last Admin: 10/29/17 07:17 Dose: 2 unit Insulin Detemir (Levemir Vial) 15 units SQ AM [facility] Last Admin: 10/29/17 06:54 Dose: 15 units Insulin Detemir (Levemir Vial) 5 units SQ HS [facility] Last Admin: 10/28/17 22:57 Dose: 5 units Labetalol HCl 400 mg/ (Labetalol HCl 100 mg) 500 mg PO TID [facility] Last Admin: 10/29/17 06:51 Dose: 500 mg Losartan Potassium (Cozaar -) 100 mg PO DAILY [facility] Last Admin: 10/28/17 09:11 Dose: Not Given Nifedipine (Procardia Xl -) 90 mg PO DAILY [facility] Last Admin: 10/28/17 09:11 Dose: Not Given Oxycodone HCl (Roxicodone -) 10 mg PO Q6H PRN PRN Reason: PAIN LEVEL 7 - 10 Last Admin: 10/29/17 06:52 Dose: 10 mg - Objective Vital Signs: Vital Signs Temperature 98.0 F 10/29/17 09:55 Pulse Rate 88 10/29/17 12:00 Respiratory Rate 18 10/29/17 12:00 Blood Pressure 142/80 10/29/17 12:00 O2 Sat by Pulse Oximetry (%) 98 10/28/17 22:00 Constitutional: Yes: Well Nourished, Calm Eyes: Yes: WNL HENT: Yes: WNL Neck: Yes: WNL Cardiovascular: Yes: Regular Rate and Rhythm, S1, S2 Respiratory: Yes: Diminished Gastrointestinal: Yes: Normal Bowel Sounds, Soft Extremities: Yes: WNL Edema: Yes Labs: CBC, BMP 10/29/17 10:50 10/29/17 10:50 INR, PTT INR 1.13 (0.82-1.09) 10/23/17 12:25 Problem List - Problems (1) Cardiac arrest Code(s): I46.9 - CARDIAC ARREST, CAUSE UNSPECIFIED (2) DKA (diabetic ketoacidoses) Code(s): E13.10 - OTH DIABETES MELLITUS WITH KETOACIDOSIS WITHOUT COMA Qualifiers: Diabetes mellitus type: type 1 Diabetes mellitus complication detail: with coma Qualified Code(s): E10.11 - Type 1 diabetes mellitus with ketoacidosis with coma (3) High anion gap metabolic acidosis Code(s): E87.2 - ACIDOSIS (4) Pneumonia Code(s): J18.9 - PNEUMONIA, UNSPECIFIED ORGANISM (5) ESRD (end stage renal disease) on dialysis Code(s): N18.6 - END STAGE RENAL DISEASE; Z99.2 - DEPENDENCE ON RENAL DIALYSIS (6) Anemia Code(s): D64.9 - ANEMIA, UNSPECIFIED Qualifiers: Folate deficiency anemia type: dietary (7) Diabetes mellitus, insulin dependent (IDDM), uncontrolled Code(s): E10.65 - TYPE 1 DIABETES MELLITUS WITH HYPERGLYCEMIA (8) HTN (hypertension) Code(s): I10 - ESSENTIAL (PRIMARY) HYPERTENSION Assessment/Plan ASSESSMENT AND PLAN: s/p Cardiopulmonary Arrest s/p Acute respiratory failure HHNK/DKA overlap Lactic Acidosis ESRD on HD Anemia HTN Seizure Disorder h/o PE Pulmonary Htn - O2 to keep Spo2 >90% - HD per renal - DVT prophylaxis DR BECERRA
--- NOTE | 2017-10-29 13:14 | PN ---
Progress Note (short form) - Note Progress Note: seen on dialysis looks chronically ill but denies any complaints am aware she may be d/c home today hd treatment is uneventful she will continue iv cefazolin in dialysis after d/c i spoke to the charge nurse in dialysis- she is on cefazoling till november 08 per ID, they will continue this regimen Problems reviewed s/p resp arrest dm out of control lower ext ulcers Current Medications Clonidine (Catapres -) 0.3 mg PO TID [facility] Last Admin: 10/29/17 06:51 Dose: 0.3 mg Collagenase (Santyl -) 1 applic TP DAILY [facility]; Protocol Last Admin: 10/28/17 10:00 Dose: Not Given Ferrous Sulfate (Feosol -) 325 mg PO DAILY [facility] Heparin Sodium (Porcine) (Heparin -) 5,000 unit SQ TID [facility] Last Admin: 10/29/17 06:46 Dose: Not Given Hydralazine HCl (Apresoline -) 100 mg PO TID [facility] Last Admin: 10/29/17 06:51 Dose: 100 mg Sodium Chloride (Normal Saline -) 250 mls @ 3,000 mls/hr IV PRN PRN PRN Reason: Hypotension during Dialysis Stop: 10/29/17 15:39 Insulin Aspart (Novolog Vial Sliding Scale -) 1 vial SQ ACHS [facility]; Protocol Last Admin: 10/29/17 07:17 Dose: 2 unit Insulin Detemir (Levemir Vial) 15 units SQ AM [facility] Last Admin: 10/29/17 06:54 Dose: 15 units Insulin Detemir (Levemir Vial) 5 units SQ HS [facility] Last Admin: 10/28/17 22:57 Dose: 5 units Labetalol HCl 400 mg/ (Labetalol HCl 100 mg) 500 mg PO TID [facility] Last Admin: 10/29/17 06:51 Dose: 500 mg Losartan Potassium (Cozaar -) 100 mg PO DAILY [facility] Last Admin: 10/28/17 09:11 Dose: Not Given Nifedipine (Procardia Xl -) 90 mg PO DAILY [facility] Last Admin: 10/28/17 09:11 Dose: Not Given Oxycodone HCl (Roxicodone -) 10 mg PO Q6H PRN PRN Reason: PAIN LEVEL 7 - 10 Last Admin: 10/29/17 06:52 Dose: 10 mg Last Vital Signs Temp Pulse Resp BP Pulse Ox 98.0 F 91 H 18 150/102 98 10/29/17 09:55 10/29/17 13:00 10/29/17 13:00 10/29/17 13:00 10/28/17 22:00 Lungs clear Heart reg Abd soft CBC, BMP 10/29/17 10:50 10/29/17 10:50 plan as above
--- NOTE | 2017-10-29 13:26 | PN ---
Progress Note, Physician History of Present Illness: stable no complaints looks good feels better - Current Medication List Current Medications: Active Medications Clonidine (Catapres -) 0.3 mg PO TID [facility] Last Admin: 10/29/17 06:51 Dose: 0.3 mg Collagenase (Santyl -) 1 applic TP DAILY [facility]; Protocol Last Admin: 10/28/17 10:00 Dose: Not Given Ferrous Sulfate (Feosol -) 325 mg PO DAILY [facility] Heparin Sodium (Porcine) (Heparin -) 5,000 unit SQ TID [facility] Last Admin: 10/29/17 06:46 Dose: Not Given Hydralazine HCl (Apresoline -) 100 mg PO TID [facility] Last Admin: 10/29/17 06:51 Dose: 100 mg Sodium Chloride (Normal Saline -) 250 mls @ 3,000 mls/hr IV PRN PRN PRN Reason: Hypotension during Dialysis Stop: 10/29/17 15:39 Insulin Aspart (Novolog Vial Sliding Scale -) 1 vial SQ ACHS [facility]; Protocol Last Admin: 10/29/17 07:17 Dose: 2 unit Insulin Detemir (Levemir Vial) 15 units SQ AM [facility] Last Admin: 10/29/17 06:54 Dose: 15 units Insulin Detemir (Levemir Vial) 5 units SQ HS [facility] Last Admin: 10/28/17 22:57 Dose: 5 units Labetalol HCl 400 mg/ (Labetalol HCl 100 mg) 500 mg PO TID [facility] Last Admin: 10/29/17 06:51 Dose: 500 mg Losartan Potassium (Cozaar -) 100 mg PO DAILY [facility] Last Admin: 10/28/17 09:11 Dose: Not Given Nifedipine (Procardia Xl -) 90 mg PO DAILY [facility] Last Admin: 10/28/17 09:11 Dose: Not Given Oxycodone HCl (Roxicodone -) 10 mg PO Q6H PRN PRN Reason: PAIN LEVEL 7 - 10 Last Admin: 10/29/17 06:52 Dose: 10 mg - Objective Vital Signs: Vital Signs Temperature 98.0 F 10/29/17 09:55 Pulse Rate 91 H 10/29/17 13:00 Respiratory Rate 18 10/29/17 13:00 Blood Pressure 150/102 10/29/17 13:00 O2 Sat by Pulse Oximetry (%) 98 10/28/17 22:00 Constitutional: Yes: No Distress, Calm Cardiovascular: Yes: Regular Rate and Rhythm Respiratory: Yes: Regular, CTA Bilaterally Gastrointestinal: Yes: Normal Bowel Sounds, Soft Musculoskeletal: Yes: WNL Extremities: Yes: Other Integumentary: Yes: Other Wound/Incision: Yes: Dressing Dry and Intact Neurological: Yes: Alert, Oriented Psychiatric: Yes: Alert, Oriented Labs: CBC, BMP 10/29/17 10:50 10/29/17 10:50 INR, PTT INR 1.13 (0.82-1.09) 10/23/17 12:25 Assessment/Plan Problem List - Problems (1) Cardiac arrest Code(s): I46.9 - CARDIAC ARREST, CAUSE UNSPECIFIED (2) DKA (diabetic ketoacidoses) Code(s): E13.10 - OTH DIABETES MELLITUS WITH KETOACIDOSIS WITHOUT COMA Qualifiers: Diabetes mellitus type: type 1 Diabetes mellitus complication detail: with coma Qualified Code(s): E10.11 - Type 1 diabetes mellitus with ketoacidosis with coma (3) ESRD (end stage renal disease) on dialysis Code(s): N18.6 - END STAGE RENAL DISEASE; Z99.2 - DEPENDENCE ON RENAL DIALYSIS (4) Anemia Code(s): D64.9 - ANEMIA, UNSPECIFIED Qualifiers: Folate deficiency anemia type: dietary (5) Diabetes mellitus, insulin dependent (IDDM), uncontrolled Code(s): E10.65 - TYPE 1 DIABETES MELLITUS WITH HYPERGLYCEMIA (6) Diabetic foot ulcer Code(s): E11.621 - TYPE 2 DIABETES MELLITUS WITH FOOT ULCER; L97.509 - NON- PRESSURE CHRONIC ULCER OTH PRT UNSP FOOT W UNSP SEVERITY (7) HTN (hypertension) Code(s): I10 - ESSENTIAL (PRIMARY) HYPERTENSION Assessment/Plan Pt is a 27 y.o. female with IDDM, ESRD on HD, seizure d.o. PE, PVD, Atrial thrombosis, cardiac myxoma, currently on Cefazolin during HD for Rt foot infected plantar ulcer/OM, brought in by EMS after found initially unresponsive by mother and then pulseless necessitating CPR. Pt intubated in ER for hypoxia and obtundation. continue abx as before patient to get it during dialysis wound care rest as per the team.
[2017-10-29 17:07] VITALS: BMI 24.0
[2017-10-29 20:24] VITALS: BP 149/88; PULSE 94; TEMP 98.4
== END 2017-10-29 21:30 | disposition home health service (06) | DRG 166 ==
LOC: JER 12:01 → JERBED 15:06 → JICU 17:58 → J4S 10-25 18:18
PROVIDERS: ADMIT Family Medicine; ATTEND Family Medicine
PROC: 5A1945Z Respiratory Ventilation, 24-96 Consecutive Hours (ICD-10-PCS; principal; 2017-10-23)
PROC: 0BH17EZ Insertion of Endotracheal Airway into Trachea, Via Natural or Artificial Opening (ICD-10-PCS; 2017-10-23)
PROC: 0JBQ0ZZ Excision of Right Foot Subcutaneous Tissue and Fascia, Open Approach (ICD-10-PCS; 2017-10-26)
DX: J18.9 Pneumonia, unspecified organism (principal); E10.10 Type 1 diabetes mellitus with ketoacidosis without coma; N18.6 End stage renal disease; J96.01 Acute respiratory failure with hypoxia; I46.9 Cardiac arrest, cause unspecified; I12.0 Hypertensive chronic kidney disease with stage 5 chronic kidney disease or end stage renal disease; E87.4 Mixed disorder of acid-base balance; G40.89 Other seizures; L97.518 Non-pressure chronic ulcer of other part of right foot with other specified severity; M86.9 Osteomyelitis, unspecified; E87.5 Hyperkalemia; E10.621 Type 1 diabetes mellitus with foot ulcer; E10.22 Type 1 diabetes mellitus with diabetic chronic kidney disease; E10.69 Type 1 diabetes mellitus with other specified complication; Z99.2 Dependence on renal dialysis; Z79.4 Long term (current) use of insulin; D64.9 Anemia, unspecified; E83.51 Hypocalcemia; Z86.718 Personal history of other venous thrombosis and embolism; E87.70 Fluid overload, unspecified; I73.9 Peripheral vascular disease, unspecified; I27.20 Pulmonary hypertension, unspecified; Z91.14 Patient's other noncompliance with medication regimen; Z91.11 Patient's noncompliance with dietary regimen; D52.9 Folate deficiency anemia, unspecified
CPT/HCPCS: 36415; 36600; 70450-TC; 71045-TC-FY; 71111-TC-FY; 71275-TC; 76705-TC; 80048; 80053; 80307; 82009; 82550; 82803; 82947; 82962; 83036; 83605; 83735; 84100; 84443; 84484; 84702; 85025; 85027; 85610; 85730; 86704; 86706; 86708; 86803; 86850; 86900; 86901; 87040; 87186; 87340; 93005; 93010; 93306-TC; 93970-TC; 94002; 99285-25; J0735; J0885; J1100; J1644; J7030

== ENCOUNTER 2017-11-03 18:23 | Emergency (ER) | payer OTHER ==
[2017-11-03 18:59] VITALS: BMI 22.6
--- NOTE | 2017-11-03 19:54 | PDOC ---
Attending Attestation - HPI HPI: 11/03/17 20:19 The patient is a 27 year old female, with a significant past medical history of HTN, anemia, IDDM, ESRD (M/W/F), seizure disorder, and recent cardiac arrest on 10/23/17, who presents to the emergency department with sudden onset of headache after 3 hours of of dialysis today. The patient states she completed about 3 hours of her usual 4 hours when she developed a 10/10, band-like pressure headache. She states she took Advil and Excedrin which alleviated her headache severity to about 3/10 now, She denies any LOC. She denies any aura prior or during her headache episode. She reportedly had a fever of 101.2F during dialysis. She reports SOB at baseline, denies increased SOB now. The patient denies chest pain, and dizziness. The patient denies fever, chills, nausea, vomit, diarrhea and constipation. The patient denies dysuria, frequency , urgency and hematuria. Allergies: NKDA, lactose. Past surgical history: none reported - Medical Decision Making 11/03/17 20:19 Documentation prepared by Sasha Atkinson, acting as emergency medical technician/driver for Francisco Nur DO. <Sasha Atkinson - Last Filed: 11/03/17 20:19> - Resident Resident Name: Tae Mahmood - ED Attending Attestation I have performed the following: I have examined & evaluated the patient, The case was reviewed & discussed with the resident, I agree w/resident's findings & plan, Exceptions are as noted - Physicial Exam PE: 11/09/17 19:15 Physical Exam General Appearance: Yes: Appropriately Dressed. No: Apparent Distress, Intoxicated HEENT: positive: EOMI, VI, Normal ENT Inspection, Normal Voice, TMs Normal, Pharynx Normal. negative: Pale Conjunctivae, Photophobia, Scleral Icterus (R), Scleral Icterus (L) Neck: positive: Trachea midline, Normal Thyroid, Supple. negative: Tender, Rigid, Carotid bruit, Stridor, Lymphadenopathy (R), Lymphadenopathy (L), Thyromegaly Respiratory/Chest: positive: Lungs Clear, Normal Breath Sounds. negative: Chest Tender, Respiratory Distress, Accessory Muscle Use, Labored Respiration, RES, Crackles, Rales, Rhonchi, Stridor, Wheezing, Dullness Cardiovascular: positive: Regular Rhythm, Regular Rate, S1, S2. negative: Edema , JVD, Murmur, Bradycardia, Tachycardia Vascular Pulses: Dorsalis-Pedis (R): 2+, Doralis-Pedis (L): 2+ Gastrointestinal/Abdominal: positive: Normal Bowel Sounds, Flat, Soft. negative : Tender, Organomegaly, Pulsatile Mass, Increased Bowel Sounds, Decreased BS, Distended, Guarding, Rebound, Hernia, Hepatomegaly, Spleenomegaly Lymphatic: negative: Adenopathy, Tenderness Musculoskeletal: positive: Normal Inspection. negative: CVA Tenderness, Decreased Range of Motion Extremity: positive: Normal Capillary Refill, Normal Inspection, Normal Range of Motion, Pelvis Stable. negative: Tender, Pedal Edema, Swelling, Erythema Integumentary: positive: Normal Color, Dry, Warm. negative: Cyanotic, Erythema , Jaundice, Rash Neurologic: positive: boiler coverer II-XII NML intact, Fully Oriented, Alert, Normal Mood/ Affect, Motor Strength 5/5. negative: EOM Palsy, Facial Droop, Sensory Deficit - Medical Decision Making 11/09/17 19:26 Pt was treated and released <Francisco Nur - Last Filed: 11/09/17 19:27>
--- NOTE | 2017-11-03 19:57 | PDOC ---
History of Present Illness - General Chief Complaint: Headache Stated Complaint: HEADACHE Time Seen by Provider: 11/03/17 19:10 - History of Present Illness Initial Comments: 27 yo F with PMH of ESRD on dialysis MWF, HTN, IDDM, and PE complaining of headaches x 5 days. Patient was admitted at this hospital last week for cardiac arrest and was discharged on Wednesday. Since that time she has experienced headaches that she describes as "pounding and throbbing" in a band-like distribution around her head. Denies aura or recent injury, trauma, syncope, or LOC. The headaches last several hours long and have increased in severity, with one rated today at 10/10 during dialysis. Her pain was so severe that she stopped dialysis after three hours even though she usually receives four hour sessions. Patient also reports feeling warm this morning and had a fever of 101.2 recorded at the dialysis clinic today. Denies chills, chest pain, abdominal pain, nausea, or vomiting. 11/03/17 19:51 Past History - Past Medical History Allergies/Adverse Reactions: Allergies Allergy/AdvReac Type Severity Reaction Status Date / Time No Known Drug Allergies Allergy Verified 10/23/17 14:33 lactose AdvReac Verified 10/23/17 14:33 Home Medications: Ambulatory Orders Losartan Potassium [Cozaar -] 100 mg PO DAILY 12/21/16 cloNIDine HCL [Catapres -] 0.3 mg PO TID 06/28/17 Oxycodone HCl [Oxycontin] 10 mg PO Q6H PRN 07/12/17 Pantoprazole Sodium [Protonix -] 20 mg PO DAILY #7 tablet.ec 08/30/17 Hydralazine HCl 100 mg PO TID 09/01/17 Collagenase Clostridium Hist. [Santyl -] 1 applic TP DAILY #1 tube 10/01/17 Insulin Detemir [Levemir Flextouch] 17 unit SQ BID #1 insuln.pen 10/01/17 Labetalol HCl [Normodyne -] 500 mg PO TID #225 tablet 10/01/17 Nifedipine ER [Procardia XL -] 90 mg PO DAILY #90 tab.er.24 10/01/17 Miscellaneous Medical Supply [Outpatient Order] 1 each ASDIR #1 misc Insulin Lispro [Humalog Kwikpen U-100] 100 unit SQ ASDIR #10 insuln.pen Ferrous Sulfate [Feosol] 325 mg PO DAILY #30 ud 10/29/17 Oxycodone HCl 10 mg PO Q6H PRN #20 tablet MDD 4 10/29/17 oxyCODONE HCL [Roxicodone -] 10 mg PO Q6H PRN #20 tablet MDD 4 10/29/17 Anemia: Yes Asthma: No Cancer: No Cardiac Disorders: No CVA: No COPD: No CHF: No DVT: No Dementia: No Diabetes: Yes (15 yrs Insulin dependent) Dialysis: Yes (M/W/F) Disorders: Yes (esrd) HTN: Yes Hypercholesterolemia: No Kidney Stones: (ESRD, Dialysis Mon, W, F, Left arm Fistula) Liver Disease: No Seizures: Yes (Several yrs ago, no medication) Thyroid Disease: No - Surgical History Abdominal Surgery: No Appendectomy: No Cardiac Surgery: Yes (myxoma removed 2013) Cholecystectomy: Yes Lung Surgery: No Neurologic Surgery: No Orthopedic Surgery: Yes (foot sx x2) - Immunization History Td Vaccination: No TDAP Vaccination: No Immunization Up to Date: Yes - Suicide/Smoking/Psychosocial Hx Smoking Status: No Smoking History: Never smoked Have you smoked in the past 12 months: No Number of Cigarettes Smoked Daily: 10 If you are a former smoker, when did you quit?: couple months ago Hx Alcohol Use: No Drug/Substance Use Hx: No Substance Use Type: None Hx Substance Use Treatment: No Review of Systems - Review of Systems Comments:: Constitutional: +fever, no chills HEENT: no throat pain, no vision changes Cardiovascular: no chest pain, no palpitations Respiratory: +shortness of breath (at baseline), no cough, Gastrointestinal: no abdominal pain, no nausea, no vomiting, no diarrhea, no constipation Genitourinary: no dysuria, no frequency Musculoskeletal: no myalgia, no arthralgia Skin: no rash, no itching Neurologic: +headache, no dizziness *Physical Exam - Vital Signs Last Vital Signs Temp Pulse Resp BP Pulse Ox 99.1 F 92 H 18 167/107 100 11/03/17 18:56 11/03/17 18:56 11/03/17 18:56 11/03/17 18:56 11/03/17 18:56 - Physical Exam Comments: General: Awake, alert, and fully oriented, in no acute distress Head: no signs of trauma Eyes: PERRL, EOMI, sclera anicteric ENT: moist mucus membranes Neck: Normal ROM, supple, no lymphadenopathy, JVD, or masses Lungs: Lungs clear, Normal breath sounds Cardio: Regular rhythm, 3/6 holosystolic murmur Abdomen: Soft, nontender, normal bowel sounds. No guarding, no rebound, no masses Extremities: Normal range of motion, bilateral lower leg edema SKIN: Warm, Dry, normal turgor Neurologic: Cranial nerves II through XII grossly intact. Normal sensation, motor strength, and coordination. Normal speech ED Treatment Course - LABORATORY CBC & Chemistry Diagram: 11/03/17 21:14 11/03/17 21:18 Medical Decision Making - Medical Decision Making 27yo F with PMH of ESRD, IDDM, HTN, and PE presenting with headache and fever. Headache is consistent with tension-type presentation as it is in a band-like distribution, alleviated with motrin or excedrin. No focal neurologic deficits on exam. EKG, rate 98, QTc 480, NSR. CT Head without Contrast is normal. Labs consistent with baseline, no leukocytosis. Headache pain alleviated in this ED with Tylenol and Ultram. Will discharge. Patient amenable to plan. Laboratory Tests 11/03/17 11/03/17 11/03/17 21:14 21:14 21:14 WBC 9.9 RBC 2.83 L Hgb 8.1 L Hct 25.2 L MCV 89.2 MCH 28.7 MCHC 32.1 RDW 17.1 H Plt Count 283 MPV 8.8 Absolute Neuts (auto) 9.1 Neutrophils % 91.3 H D Neutrophils % (Manual) 94.0 H D Lymphocytes % 4.2 L D Lymphocytes % (Manual) 2.0 L D Monocytes % 3.6 L Monocytes % (Manual) 4 Eosinophils % 0.4 Basophils % 0.5 Nucleated RBC % 0 Hypochromia 2+ Platelet Estimate Adequate Platelet Comment No clumping noted Anisocytosis 2+ Microcytosis 1+ Macrocytosis 1+ PT with INR 13.10 H INR 1.16 H Sodium Cancelled Potassium Cancelled Chloride Cancelled Carbon Dioxide Cancelled Anion Gap Cancelled BUN Cancelled Creatinine Cancelled Creat Clearance w eGFR Cancelled Random Glucose Cancelled Calcium Cancelled Total Bilirubin Cancelled AST Cancelled ALT Cancelled Alkaline Phosphatase Cancelled Creatine Kinase Cancelled Troponin I Cancelled Total Protein Cancelled Albumin Cancelled Beta HCG, Quant Cancelled Serum , Qual 11/03/17 11/03/17 21:18 21:18 WBC RBC Hgb Hct MCV MCH MCHC RDW Plt Count MPV Absolute Neuts (auto) Neutrophils % Neutrophils % (Manual) Lymphocytes % Lymphocytes % (Manual) Monocytes % Monocytes % (Manual) Eosinophils % Basophils % Nucleated RBC % Hypochromia Platelet Estimate Platelet Comment Anisocytosis Microcytosis Macrocytosis PT with INR INR Sodium 137 Potassium 3.6 Chloride 100 Carbon Dioxide 26 Anion Gap 11 BUN 35 H Creatinine 4.0 H Creat Clearance w eGFR 13.33 Random Glucose 90 Calcium 8.6 Total Bilirubin 0.6 AST 53 H ALT 16 Alkaline Phosphatase 997 H D Creatine Kinase 75 Troponin I < 0.02 Total Protein 7.5 Albumin 3.2 L Beta HCG, Quant Serum , Qual Negative *DC/Admit/Observation/Transfer Diagnosis at time of Disposition: Headache Qualifiers: Headache type: tension-type Headache chronicity pattern: unspecified pattern Intractability: not intractable Qualified Code(s): G44.209 - Tension-type headache, unspecified, not intractable - Discharge Dispostion Disposition: HOME Condition at time of disposition: Improved - Referrals - Patient Instructions Printed Discharge Instructions: DI for Headache Additional Instructions: You were seen in the emergency department for headache. Your blood work was at your baseline. Head CT was normal. We do not suspect an acute cause for your headache. Follow up with your primary care provider in the next week. Return to the emergency department if you experience: Difficulty breathing or chest pain Symptoms of a stroke (use FAST): F- one side of your face droops when asked to smile A- one arm drifts downward when asked to raise them S- slurred or garbled speech when asked to repeat a simple phrase T- Time is crucial. Note the time of symptoms started and call for emergency medical services as soon as you see them Other symptoms include, trouble walking or standing, loss of balance, vision problems, or severe headache without cause - Post Discharge Activity
[2017-11-03] MEDS ORDERED: ACETAMINOPHEN 325 MG TABLET (FP) PO ONE (20:03)
[2017-11-03] MEDS ORDERED: ACETAMINOPHEN 325 MG TABLET (FP) ONE (20:11)
[2017-11-03 21:29] LABS: BASO % 0.5 % (0-2.0); EOS % 0.4 % (0-4.5); HEMATOCRIT 25.2 % (32.4-45.2); HEMOGLOBIN 8.1 GM/dL (10.7-15.3); LYMPH % 4.2 % (8-40); MCH 28.7 pg (25.7-33.7); MCHC 32.1 g/dl (32.0-36.0); MEAN CELL VOLUME 89.2 fl (80-96); MEAN PLT VOLUME 8.8 fl (7.5-11.1); MONO % 3.6 % (3.8-10.2); NEUT % 91.3 % (42.8-82.8); PLATELET COUNT 283 K/MM3 (134-434); RBC 2.83 M/mm3 (3.60-5.2); RDW 17.1 % (11.6-15.6); WHITE BLOOD COUNT 9.9 K/mm3 (4.0-10.0)
[2017-11-03 21:48] LABS: INR 1.16 (0.83-1.09); PROTHROMBIN TIME (PATIENT) 13.1 SEC (9.7-13.0)
[2017-11-03 22:14] LABS: ANISOCYTOSIS 2+
[2017-11-03 22:15] LABS: MACROCYTOSIS 1+; PLATELET ESTIMATE ADEQUATE
[2017-11-03 23:00] LABS: ALBUMIN 3.2 g/dl (3.4-5.0); ANION GAP 11 (8-16); BILIRUBIN,TOTAL 0.6 mg/dL (0.2-1.0); BLOOD UREA NITROGEN 35 mg/dL (7-18); CALCIUM 8.6 mg/dL (8.5-10.1); CHLORIDE 100 mmol/L (98-107); CO2 26 mmol/L (21-32); GLUCOSE,RANDOM 90 mg/dL (74-106); POTASSIUM 3.6 mmol/L (3.5-5.1); SGOT/AST 53 U/L (15-37); SGPT/ALT 16 U/L (12-78); SODIUM 137 mmol/L (136-145); TOT PROT 7.5 g/dl (6.4-8.2)
[2017-11-03 23:13] LABS: ALK PHOS 997 U/L (45-117)
[2017-11-04] MEDS ORDERED: traMADol HCL 50 MG TABLET PO ONE (00:01)
[2017-11-04] MEDS ORDERED: traMADol HCL 50 MG TABLET ONE (00:03)
[2017-11-04 02:36] VITALS: BP 176/104; PULSE 94; TEMP 99.4
--- NOTE | 2017-11-04 12:47 | EKG ---
Test Reason : Blood Pressure : / mmHG Vent. Rate : 098 BPM Atrial Rate : 098 BPM P-R Int : 184 ms QRS Dur : 080 ms QT Int : 376 ms P-R-T Axes : 042 009 098 degrees QTc Int : 480 ms NORMAL SINUS RHYTHM POSSIBLE ANTERIOR INFARCT , AGE UNDETERMINED ABNORMAL ECG WHEN COMPARED WITH ECG OF 23-OCT-2017 12:06, NONSPECIFIC T WAVE ABNORMALITY NO LONGER EVIDENT IN INFERIOR LEADS NONSPECIFIC T WAVE ABNORMALITY NOW EVIDENT IN LATERAL LEADS Confirmed by WESLEY SABILLON MD ([id number]) on 11/04/2017 12:47:03 PM Referred By: Confirmed By:WESLEY SABILLON MD
== END 2017-11-04 02:00 | disposition home or self-care (01) ==
LOC: JER 18:23
DX: G44.209 Tension-type headache, unspecified, not intractable (principal); I12.0 Hypertensive chronic kidney disease with stage 5 chronic kidney disease or end stage renal disease; E11.22 Type 2 diabetes mellitus with diabetic chronic kidney disease; N18.6 End stage renal disease; N17.8 Other acute kidney failure; Z99.2 Dependence on renal dialysis; Z79.4 Long term (current) use of insulin; D64.9 Anemia, unspecified; Z86.74 Personal history of sudden cardiac arrest; Z86.69 Personal history of other diseases of the nervous system and sense organs
CPT/HCPCS: 36415; 70450-TC; 80053; 82550; 84484; 84703; 85025; 85610; 93005; 93010; 99282-25

== ENCOUNTER 2017-11-07 04:38 | Inpatient (IN) | payer OTHER ==
[2017-11-07 04:46] VITALS: BMI 24.2
[2017-11-07] MEDS ORDERED: ACETAMINOPHEN 325 MG TABLET (FP) PO ONE (05:20)
--- NOTE | 2017-11-07 05:27 | PDOC ---
History of Present Illness - General Chief Complaint: Lightheaded Stated Complaint: DIZZY Time Seen by Provider: 11/07/17 05:10 History Source: Patient Exam Limitations: No Limitations - History of Present Illness Initial Comments: 11/07/17 05:21 HISTORY OF PRESENT ILLNESS: This is a 27-year-old woman with past medical history of hypertension, NIDDM, ESRD on HD MWF presents emergency Department with dizziness, chest pain, shortness of breath, muscle cramps. Patient states the dizziness started today at approximately 12 noon. Patient states she only received 3 out of 4 hours of dialysis on Wednesday secondary to headache. Patient denies blurry vision, nausea, vomiting, abdominal pain. No recent travel or sick contacts. PAST MEDICAL HISTORY: hypertension, IDDM, ESRD on HD- MWF, vertigo SURGICAL HISTORY: Denies ALLERGIES: No known drug allergies REVIEW OF SYSTEMS General/Constitutional: Denies fever or chills. Denies weakness, weight change. HEENT: Denies change in vision. Denies ear pain or discharge. Denies sore throat. Cardiovascular: DEndorses chest pain and shortness of breath. Respiratory: Denies cough, wheezing, or hemoptysis. Gastrointestinal: Denies nausea, vomiting, or constipation. Denies rectal bleeding. Pt endorses 1 day of green diarrhea on 11/05. Genitourinary: Denies dysuria, frequency, or change in urination. Musculoskeletal: Endorses BLE cramping. Denies neck or back pain. Skin and breasts: Denies rash or easy bruising. Neurologic: Denies headache, vertigo, loss of consciousness, or loss of sensation. Psychiatric: Denies depression or anxiety. Endocrine: Denies increased thirst. Denies abnormal weight change. Hematologic/Lymphatic: Denies anemia, easy bleeding, or history of blood clots. Allergic/Immunologic: Denies hives or skin allergy. Denies latex allergy. PHYSICAL EXAM General Appearance: Well-appearing, appropriately dressed. No apparent distress , no intoxication. HEENT: EOMI, PERRLA, normal ENT inspection, normal voice, TMs normal, pharynx normal. No conjunctival pallor. No photophobia, scleral icterus. Neck: Supple. Trachea midline. No tenderness, rigidity, carotid bruit, stridor , lymphadenopathy, or thyromegaly. Respiratory/Chest: Lungs CTAB. 5 word dyspnea. No chest tenderness, respiratory distress, accessory muscle use. No crackles, rales, rhonchi, stridor, wheezing, dullness Cardiovascular: RRR. S1, S2. No JVD, murmur, bradycardia, tachycardia. Vascular Pulses: Dorsalis-Pedis (R): 2+, Dorsalis-Pedis (L): 2+, LUE A-V fistula. +bruit, +thrill Gastrointestinal/Abdominal: Normal bowel sounds. Abdomen soft, non-distended. No tenderness or rebound tenderness. No organomegaly, pulsatile mass, guarding, hernia, hepatomegaly, splenomegaly. Lymphatic: No adenopathy, tenderness. Musculoskeletal/Extremities: Normal inspection. FROM of all extremities, normal capillary refill. Pelvis Stable. No CVA tenderness. No tenderness to extremities, pedal edema, swelling, erythema or deformity. Integumentary: Appropriate color, dry, warm. No cyanosis, erythema, jaundice or rash Neurologic: field education director II-XII intact. Fully oriented, alert. Appropriate mood/affect. Motor strength 5/5. No appreciable EOM palsy, facial droop or sensory deficit. Past History - Past Medical History Allergies/Adverse Reactions: Allergies Allergy/AdvReac Type Severity Reaction Status Date / Time lactose AdvReac Verified 11/07/17 04:44 Home Medications: Ambulatory Orders Losartan Potassium [Cozaar -] 100 mg PO DAILY 12/21/16 cloNIDine HCL [Catapres -] 0.3 mg PO TID 06/28/17 Oxycodone HCl [Oxycontin] 10 mg PO Q6H PRN 07/12/17 Pantoprazole Sodium [Protonix -] 20 mg PO DAILY #7 tablet.ec 08/30/17 Hydralazine HCl 100 mg PO TID 09/01/17 Collagenase Clostridium Hist. [Santyl -] 1 applic TP DAILY #1 tube 10/01/17 Insulin Detemir [Levemir Flextouch] 17 unit SQ BID #1 insuln.pen 10/01/17 Labetalol HCl [Normodyne -] 500 mg PO TID #225 tablet 10/01/17 Nifedipine ER [Procardia XL -] 90 mg PO DAILY #90 tab.er.24 10/01/17 Miscellaneous Medical Supply [Outpatient Order] 1 each ASDIR #1 misc Insulin Lispro [Humalog Kwikpen U-100] 100 unit SQ ASDIR #10 insuln.pen Ferrous Sulfate [Feosol] 325 mg PO DAILY #30 ud 10/29/17 Oxycodone HCl 10 mg PO Q6H PRN #20 tablet MDD 4 10/29/17 oxyCODONE HCL [Roxicodone -] 10 mg PO Q6H PRN #20 tablet MDD 4 10/29/17 Anemia: Yes Asthma: No Cancer: No Cardiac Disorders: No CVA: No COPD: No CHF: No DVT: No Dementia: No Diabetes: Yes (15 yrs Insulin dependent) Dialysis: Yes (M/W/F) Disorders: Yes (esrd) HTN: Yes Hypercholesterolemia: No Kidney Stones: (ESRD, Dialysis Mon, W, F, Left arm Fistula) Liver Disease: No Seizures: Yes (Several yrs ago, no medication) Thyroid Disease: No - Surgical History Abdominal Surgery: No Appendectomy: No Cardiac Surgery: Yes (myxoma removed 2013) Cholecystectomy: Yes Lung Surgery: No Neurologic Surgery: No Orthopedic Surgery: Yes (foot sx x2) - Immunization History Td Vaccination: No TDAP Vaccination: No Immunization Up to Date: Yes - Suicide/Smoking/Psychosocial Hx Smoking Status: No Smoking History: Never smoked Have you smoked in the past 12 months: No Number of Cigarettes Smoked Daily: 10 If you are a former smoker, when did you quit?: couple months ago Information on smoking cessation initiated: No Hx Alcohol Use: No Drug/Substance Use Hx: No Substance Use Type: None Hx Substance Use Treatment: No *Physical Exam - Vital Signs Last Vital Signs Temp Pulse Resp BP Pulse Ox 99.3 F 94 H 20 121/77 92 L 11/07/17 04:45 11/07/17 04:45 11/07/17 04:45 11/07/17 04:45 11/07/17 04:45 ED Treatment Course - LABORATORY CBC & Chemistry Diagram: 11/07/17 06:25 11/07/17 06:25 - RADIOLOGY Radiology Studies Ordered: Category Date Time Status HEAD CT WITHOUT CONTRAST [CT] Stat CT Scan 11/07/17 05:18 Ordered CHEST X-RAY PORTABLE* [RAD] Stat Radiology 11/07/17 05:18 Ordered Medical Decision Making - Medical Decision Making 11/07/17 05:27 A/P: 27-year-old female history of hypertension, IDDM, ESRD on HD presents with headaches, dizziness, chest pain, shortness of breath, lower extremity cramping 5 for dyspnea noted Lungs clear to auscultation bilaterally RRR. Holosystolic murmur present. Abdomen soft nontender nondistended. Cranial nerves II through XII grossly intact EOMI. PERRLA. DDx: Metabolic disarray- from DKA or ESRD, fluid overload, vertigo, ACS, infection- less likely CVA Will likely require observation. Labs, EKG, CAT scan, chest x-ray 11/07/17 05:42 EKG- Sinus rhythm with rate 97. Normal intervals. Normal axis. No ischemic changes noted. 11/07/17 07:09 Patient signed out to GRAEME Kirk. *DC/Admit/Observation/Transfer Diagnosis at time of Disposition: Dizziness - Referrals - Patient Instructions - Post Discharge Activity
[2017-11-07] MEDS ORDERED: ACETAMINOPHEN 325 MG TABLET (FP) ONE (05:58)
[2017-11-07] MEDS ORDERED: HEMOQUE TEST 1 EACH EACH ONE (06:09)
[2017-11-07 06:43] LABS: BASO % 0.6 % (0-2.0); EOS % 0.7 % (0-4.5); HEMATOCRIT 24.3 % (32.4-45.2); LYMPH % 5.1 % (8-40); MCH 28.9 pg (25.7-33.7); MEAN CELL VOLUME 87.5 fl (80-96); MONO % 6.7 % (3.8-10.2); NEUT % 86.9 % (42.8-82.8); PLATELET COUNT 292 K/MM3 (134-434); RBC 2.78 M/mm3 (3.60-5.2); RDW 16.6 % (11.6-15.6); WHITE BLOOD COUNT 9.2 K/mm3 (4.0-10.0)
[2017-11-07 06:44] LABS: VENOUS PC02 46.6 mmHg (38-52); VENOUS PH 7.29 (7.32-7.42); VENOUS PO2 35.5 mmHg (28-48)
[2017-11-07 06:57] LABS: INR 1.34 (0.83-1.09); PROTHROMBIN TIME (PATIENT) 15.1 SEC (9.7-13.0)
[2017-11-07 07:13] LABS: ALBUMIN 2.9 g/dl (3.4-5.0); ANION GAP 15 (8-16); BILIRUBIN,TOTAL 0.8 mg/dL (0.2-1.0); BLOOD UREA NITROGEN 50 mg/dL (7-18); CALCIUM 8.2 mg/dL (8.5-10.1); CHLORIDE 100 mmol/L (98-107); CO2 21 mmol/L (21-32); CREATININE 5.9 mg/dL (0.55-1.02); GLUCOSE,RANDOM 101 mg/dL (74-106); POTASSIUM 4.2 mmol/L (3.5-5.1); SGOT/AST 29 U/L (15-37); SGPT/ALT 9 U/L (12-78); SODIUM 136 mmol/L (136-145); TOT PROT 7.6 g/dl (6.4-8.2)
[2017-11-07 07:26] LABS: ALK PHOS 1075 U/L (45-117)
[2017-11-07 08:57] LABS: PLATELET ESTIMATE ADEQUATE; TARGET CELLS FEW
--- NOTE | 2017-11-07 09:06 | PDOC ---
ED Treatment Course - LABORATORY CBC & Chemistry Diagram: 11/07/17 06:25 11/07/17 06:25 - ADDITIONAL ORDERS Additional order review: Laboratory Results 11/07/17 11/07/17 11/07/17 06:32 06:25 06:25 PT with INR INR VBG pH 7.29 L D POC VBG pCO2 46.6 POC VBG pO2 35.5 D Mixed VBG HCO3 21.4 Sodium Potassium Chloride Carbon Dioxide Anion Gap BUN Creatinine Creat Clearance w eGFR POC Glucometer [phone] Random Glucose Calcium Total Bilirubin AST ALT Alkaline Phosphatase Creatine Kinase Troponin I Total Protein Albumin Serum , Qual Blood Type B POSITIVE Antibody Screen Negative 11/07/17 11/07/17 11/07/17 06:25 06:25 06:25 PT with INR 15.10 H INR 1.34 H VBG pH POC VBG pCO2 POC VBG pO2 Mixed VBG HCO3 Sodium 136 Potassium 4.2 Chloride 100 Carbon Dioxide 21 Anion Gap 15 BUN 50 H Creatinine 5.9 H Creat Clearance w eGFR 8.51 POC Glucometer Random Glucose 101 Calcium 8.2 L Total Bilirubin 0.8 AST 29 ALT 9 L Alkaline Phosphatase 1075 H D Creatine Kinase 42 Troponin I < 0.02 Total Protein 7.6 Albumin 2.9 L Serum , Qual Negative Blood Type Antibody Screen 11/07/17 11/07/17 06:32 06:25 RBC 2.78 L MCV 87.5 MCHC 33.0 RDW 16.6 H MPV 10.0 D Neutrophils % 86.9 H Lymphocytes % 5.1 L D Monocytes % 6.7 D Eosinophils % 0.7 Basophils % 0.6 POC Glucometer 110.54974 - Medications Given in the ED: ED Medications Discontinued Medications Generic Name Dose Route Start Last Admin Trade Name Freq PRN Reason Stop Dose Admin Acetaminophen 650 mg 11/07/17 05:20 11/07/17 06:00 Tylenol - PO 11/07/17 05:21 650 mg ONCE ONE Administration <Celina Kirk - Last Filed: 11/07/17 08:59> - LABORATORY CBC & Chemistry Diagram: 11/07/17 06:25 11/07/17 06:25 - ADDITIONAL ORDERS Additional order review: Laboratory Results 11/07/17 11/07/17 11/07/17 06:32 06:25 06:25 PT with INR INR VBG pH 7.29 L D POC VBG pCO2 46.6 POC VBG pO2 35.5 D Mixed VBG HCO3 21.4 Sodium Potassium Chloride Carbon Dioxide Anion Gap BUN Creatinine Creat Clearance w eGFR POC Glucometer 110.56502 Random Glucose Calcium Total Bilirubin AST ALT Alkaline Phosphatase Creatine Kinase Troponin I Total Protein Albumin Serum , Qual Blood Type B POSITIVE Antibody Screen Negative 11/07/17 11/07/17 11/07/17 06:25 06:25 06:25 PT with INR 15.10 H INR 1.34 H VBG pH POC VBG pCO2 POC VBG pO2 Mixed VBG HCO3 Sodium 136 Potassium 4.2 Chloride 100 Carbon Dioxide 21 Anion Gap 15 BUN 50 H Creatinine 5.9 H Creat Clearance w eGFR 8.51 POC Glucometer Random Glucose 101 Calcium 8.2 L Total Bilirubin 0.8 AST 29 ALT 9 L Alkaline Phosphatase 1075 H D Creatine Kinase 42 Troponin I < 0.02 Total Protein 7.6 Albumin 2.9 L Serum , Qual Negative Blood Type Antibody Screen 11/07/17 11/07/17 06:32 06:25 RBC 2.78 L MCV 87.5 MCHC 33.0 RDW 16.6 H MPV 10.0 D Neutrophils % 86.9 H Lymphocytes % 5.1 L D Monocytes % 6.7 D Eosinophils % 0.7 Basophils % 0.6 POC Glucometer [phone] - Medications Given in the ED: ED Medications Discontinued Medications Generic Name Dose Route Start Last Admin Trade Name Freq PRN Reason Stop Dose Admin Acetaminophen 650 mg 11/07/17 05:20 11/07/17 06:00 Tylenol - PO 11/07/17 05:21 650 mg ONCE ONE Administration <Shivani Hager - Last Filed: 11/07/17 09:37> Progress Note - Progress Note Progress Note: I have received report from AIDA Hagan regarding this patient. Pt's initial chief complaint: GUTIERRES, dizziness, CP, SOB, LE cramping Pt's work up completed prior to sign out: EKG Pt treatment given from prior staff: PO tylenol Pt plan to be completed: CXR, Labs, UA, Head CT Dispo: Admission. <Celina Kirk - Last Filed: 11/07/17 08:59> Medical Decision Making - Medical Decision Making A/P: 27 y/o female with PMH HTN, IDDM, ESRD on GUTIERRES c/o GUTIERRES, dizziness, CP and SOB. Head CT IMPRESSION: No significant interval change. No evidence of focal intracranial lesion or hemorrhage seen. CXR IMPRESSION: Increasing congestive changes since prior study of 10/25/17 with persistently elevated right hemidiaphragm and some atelectasis or infiltrate at right base. Given O2 sat, pulse, Elevated Neutrophils, will dx with PNA and admit to hospitalist. Hospitalist microblogged at 9:08am. <Celina Kirk - Last Filed: 11/07/17 08:59> - Medical Decision Making 11/07/17 09:37 Dr. Reyes was paged and notified via phone service. <Shivani Hager - Last Filed: 11/07/17 09:37> *DC/Admit/Observation/Transfer - Discharge Dispostion Decision to Admit order: Yes <Celina Kirk - Last Filed: 11/07/17 08:59> <Shivani Hager - Last Filed: 11/07/17 09:37> Diagnosis at time of Disposition: Dizziness, Pneumonia - Discharge Dispostion Condition at time of disposition: Fair
[2017-11-07] MEDS ORDERED: oxyCODONE HCL 5 MG TABLET PO ONE ×2 (10:10→22:22)
[2017-11-07] MEDS ORDERED: oxyCODONE HCL 5 MG TABLET ONE (10:14)
[2017-11-07] MEDS ORDERED: AZITHROMYCIN IVPB 500 MG in DEXTROSE 5%-WATER - 250 ML IVPB ONE (10:43)
[2017-11-07] MEDS ORDERED: PIPERACILLIN/TAZOB 3.375 GM 3.375 GM in DEXTROSE 5%-WATER - 50 ML IVPB ONE (10:43)
[2017-11-07] MEDS ORDERED: PIPERACILLIN/TAZOB 3.375 GM 3.375 GM/50 ML BAG IVPB ONE (11:07)
[2017-11-07] MEDS ORDERED: AZITHROMYCIN IVPB 250 ML IVPB ONE (11:07)
--- NOTE | 2017-11-07 12:57 | CONSULT ---
Consult - text type - Consultation Consultation Note: Podiatry Consultation: 27 year old poorly controlled IDDM F presented to ED with dizziness and disorientation. She believes it is from taking wrong dose of gabapentin. Patient is well known to me from wound healing center. S/p R foot debridement and fifth metatarsal head resection during one of her previous admissions. She had been lost to follow up in the past. Non-compliant with glycemic management and nutrition. Currently afebrile VSS. I was asked by medical team to evaluate patient's right foot. PMHx: poorly controlled IDDM, HTN, HLP, ESRD on HD, h/o PE Meds: noted ALL: lactose CATRACHITA: R foot: pedal pulses palpable, TG wnl, CFT brisk to all toes. There is a sub- fifth metatarsal diabetic ulcer fibrogranular base, regular borders, no probing to bone, no purulence, no fluctuance, no periwound erythema, no streaking cellulitis, no signs of active infection. There is a dorsal fifth ray dehiscence site fibrogranular, no deep probing, no drainage, no signs of infection. Imp: 27 year old poorly controlled IDDM F s/p R fifth metatarsal head resection and debridement; stable R DFU 1. No acute podiatric intervention. 2. Can continue local wound care Rx with santyl. 3. Rx surgical offloading shoe. 4. Discussed appropriate glycemic management. 5. Can f/u in wound healing center upon discharge. Thank you for the courtesy of this consultation. Delfino Dubon DPM
--- NOTE | 2017-11-07 13:14 | HP ---
Admitting History and Physical - Admission Chief Complaint: dizziness, sob, fatigue History of Present Illness: This is a 27 year old female with pmhx of ESRD on HD (secondary to DM), IDDM, Hypertension, PVD, Atrial thrombus recently discharged after hospitalization for AMS/Unresponsiveness at home with cardiac arrest requiring CPR in the field presented last night with dizziness and sob. PT states she took an increased gabapentin dose of 600mg and began to feel severely dizzy. She feels better now , denies sob, cough, fever, chills, abdominal pain, cp. She feels much better, although appears very fatigued and difficult to keep her eyes open. History Source: Patient Limitations to Obtaining History: No Limitations - Past Medical History Cardiovascular: Yes: CHF, HTN, Other (thrombus in atrium, PE, DVT) Pulmonary: Yes: Pulmonary Embolus Renal/: Yes: Renal Failure, Hemodialysis ...LMP: 05/13/17 ...: No Heme/Onc: Yes: Anemia, Other (atrial myxoma s/p surgical removal. Also has a history of PE ) Infectious Disease: Yes: MRSA, Other Endocrine: Yes: Diabetes Mellitus (type 1 on insulin pump) - Past Surgical History Past Surgical History: Yes: AV Fistula/Graft (Right arm) - Smoking History Smoking history: Never smoked Have you smoked in the past 12 months: No Aproximately how many cigarettes per day: 10 If you are a former smoker, when did you quit?: couple months ago - Alcohol/Substance Use Hx Alcohol Use: No History of Substance Use: reports: None - Social History ADL: Independent Occupation: unemployed History of Recent Travel: No Home Medications - Allergies Allergies/Adverse Reactions: Allergies Allergy/AdvReac Type Severity Reaction Status Date / Time lactose AdvReac Verified 11/07/17 04:44 - Home Medications Home Medications: Ambulatory Orders Losartan Potassium [Cozaar -] 100 mg PO DAILY 12/21/16 cloNIDine HCL [Catapres -] 0.3 mg PO TID 06/28/17 Oxycodone HCl [Oxycontin] 10 mg PO Q6H PRN 07/12/17 Pantoprazole Sodium [Protonix -] 20 mg PO DAILY #7 tablet.ec 08/30/17 Hydralazine HCl 100 mg PO TID 09/01/17 Collagenase Clostridium Hist. [Santyl -] 1 applic TP DAILY #1 tube 10/01/17 Insulin Detemir [Levemir Flextouch] 17 unit SQ BID #1 insuln.pen 10/01/17 Labetalol HCl [Normodyne -] 500 mg PO TID #225 tablet 10/01/17 Nifedipine ER [Procardia XL -] 90 mg PO DAILY #90 tab.er.24 10/01/17 Insulin Lispro [Humalog Kwikpen U-100] 100 unit SQ ASDIR #10 insuln.pen oxyCODONE HCL [Roxicodone -] 10 mg PO Q6H PRN #20 tablet MDD 4 10/29/17 Family Disease History - Family Disease History Family Disease History: Diabetes: Grandparent (HTN), Heart Disease: Grandparent , Other: Father (unknown), Mother (HTN) Review of Systems - Review of Systems Constitutional: reports: Lethargy Eyes: reports: No Symptoms HENT: reports: No Symptoms Neck: reports: No Symptoms Cardiovascular: reports: No Symptoms Respiratory: reports: No Symptoms Gastrointestinal: reports: No Symptoms Genitourinary: reports: No Symptoms Musculoskeletal: reports: No Symptoms Integumentary: reports: No Symptoms Neurological: reports: No Symptoms Endocrine: reports: No Symptoms Hematology/Lymphatic: reports: No Symptoms Psychiatric: reports: No Symptoms Physical Examination Vital Signs: Vital Signs Temperature 98 F 11/07/17 11:19 Pulse Rate 72 11/07/17 11:19 Respiratory Rate 18 11/07/17 11:19 Blood Pressure 138/78 11/07/17 11:19 O2 Sat by Pulse Oximetry (%) 98 11/07/17 11:19 Constitutional: Yes: No Distress Eyes: Yes: Conjunctiva Clear HENT: Yes: Atraumatic Neck: Yes: Supple Cardiovascular: Yes: Regular Rate and Rhythm, S1, S2 Respiratory: Yes: Regular, On Nasal O2, Rhonchi Gastrointestinal: Yes: Normal Bowel Sounds, Soft Renal/: Yes: WNL Musculoskeletal: Yes: WNL Extremities: Yes: WNL, Other (R foot wound no drainage, erythema) Edema: Yes (no pitting ) Integumentary: Yes: WNL Wound/Incision: Yes: Dressing Dry and Intact Neurological: Yes: Alert, Oriented, Cran Nerves II-XII Intact Labs: CBC, BMP 11/07/17 06:25 11/07/17 06:25 Imaging - Results Chest X-ray: Report Reviewed, Image Reviewed Cat Scan: Report Reviewed Problem List - Problems (1) Dizziness Code(s): R42 - DIZZINESS AND GIDDINESS Assessment/Plan Assessment: 27 year old female presenting with dizziness Plan: 1. Dizziness - Resolved - Due to increased self medicated dose gabapentin - Discussed self dosing with patient - Currently, very fatigued 2. ? r base infiltrate vs ateletasis - Less likely pna, will hold off on treatment in setting of no infectious signs , pt due for HD tomorrow, lungs clear no wheezing - Azithro x1 in ED - Monitor 3. ESRD on HD MWF - Receives cefazolin on hd for foot - HD tomorrow, d/w Nephrology 4. HTN - Cont home meds 5. DM II - ISS, BGM ACHS - Levemir 17 units BID 6. DVT - Heparin sq 7. Anemia of chronic dz - Consider 1u packed cells on HD tomorrow Visit type - Emergency Visit Emergency Visit: Yes ED Registration Date: 11/07/17 Care time: The patient presented to the Emergency Department on the above date and was hospitalized for further evaluation of their emergent condition. - New Patient This patient is new to me today: Yes Date on this admission: 11/07/17 - Critical Care Critical Care patient: No Hospitalist Screening - Colonoscopy Questionnaire Colonoscopy Questionnaire: Colonoscopy Questionnaire - Patient: 50 - 75 years old and never had a screening colonoscopy: Unknown History of colon or rectal polyps, or CA: Unknown History of IBD, Crohn's disease or UC: Unknown History of abdominal radiation therapy as a child: Unknown - Relative: 1 with colon or rectal CA, or polyps at age 60 or younger: Unknown Colon or rectal CA diagnosed at age 45 or younger: Unknown Multiple relatives with colon or rectal CA: Unknown - Outcome: Screening Result: Negative Screen
[2017-11-07] MEDS: INSULIN SLIDING SCALE (NOVOLOG) 1 VIAL SQ SCH ×3 (14:12→22:01)
[2017-11-07] MEDS ORDERED: hydrALAZINE HCL 25 MG TABLET (FP) ONE (14:31)
[2017-11-07] MEDS ORDERED: LABETALOL HCL 100 MG TABLET (FP) ONE (14:31)
[2017-11-07] MEDS: LABETALOL HCL 200 MG TABLET (FP) PO SCH ×2 (14:33→21:55)
[2017-11-07] MEDS: cloNIDine HCL 0.1 MG TABLET PO SCH ×2 (14:33→21:56)
[2017-11-07] MEDS: hydrALAZINE HCL 50 MG TABLET (FP) PO SCH ×2 (14:33→22:01)
[2017-11-07] MEDS ORDERED: INSULIN (NOVOLOG) ASPART 100 UNITS/ML 10ML VIAL ONE ×2 (18:05→19:59)
--- NOTE | 2017-11-07 19:52 | EKG ---
Test Reason : Blood Pressure : / mmHG Vent. Rate : 097 BPM Atrial Rate : 097 BPM P-R Int : 194 ms QRS Dur : 080 ms QT Int : 356 ms P-R-T Axes : 022 016 064 degrees QTc Int : 452 ms NORMAL SINUS RHYTHM NONSPECIFIC T WAVE ABNORMALITY ABNORMAL ECG WHEN COMPARED WITH ECG OF 03-NOV-2017 21:17, NO SIGNIFICANT CHANGE WAS FOUND Confirmed by OLIVA FERNANDEZ MD ([id number]) on 11/07/2017 7:51:59 PM Referred By: Confirmed By:OLIVA FERNANDEZ MD
[2017-11-07] MEDS ORDERED: INSULIN (LEVEMIR) 100 UNITS/ML UNITS SQ ONE (19:59)
[2017-11-07] MEDS: ACETAMINOPHEN 325 MG TABLET (FP) PO PRN (21:56)
[2017-11-07] MEDS: INSULIN (LEVEMIR) 100 UNITS/ML UNITS SQ SCH (22:01)
[2017-11-08] MEDS ORDERED: oxyCODONE HCL 5 MG TABLET PO ONE (06:14)
[2017-11-08] MEDS: hydrALAZINE HCL 50 MG TABLET (FP) PO SCH ×3 (06:32→22:49)
[2017-11-08] MEDS: LABETALOL HCL 200 MG TABLET (FP) PO SCH ×3 (06:32→22:48)
[2017-11-08] MEDS: cloNIDine HCL 0.1 MG TABLET PO SCH ×3 (06:33→22:49)
[2017-11-08] MEDS: INSULIN SLIDING SCALE (NOVOLOG) 1 VIAL SQ SCH ×5 (06:34→22:50)
[2017-11-08] MEDS: ACETAMINOPHEN 325 MG TABLET (FP) PO PRN ×2 (06:36→18:11)
[2017-11-08] MEDS ORDERED: SODIUM CHLORIDE 250 ML IV PRN (10:15)
[2017-11-08] MEDS ORDERED: CEFAZOLIN 2 GM/D5W 2 GM/50 ML ML IVPB ONE (11:30)
[2017-11-08] MEDS ORDERED: EPOETIN ALFA 20,000 UNIT/1 ML VIAL IVPUSH ONE (11:40)
[2017-11-08 12:42] LABS: HEMOGLOBIN 7.1 GM/dL (10.7-15.3); MCHC 32.4 g/dl (32.0-36.0); MEAN CELL VOLUME 86.3 fl (80-96); MEAN PLT VOLUME 9.8 fl (7.5-11.1); PLATELET COUNT 283 K/MM3 (134-434); RBC 2.55 M/mm3 (3.60-5.2); RDW 16.5 % (11.6-15.6); WHITE BLOOD COUNT 10.7 K/mm3 (4.0-10.0)
[2017-11-08 13:13] LABS: ANION GAP 19 (8-16); BLOOD UREA NITROGEN 68 mg/dL (7-18); CALCIUM 8.4 mg/dL (8.5-10.1); CHLORIDE 100 mmol/L (98-107); CO2 17 mmol/L (21-32); CREATININE 7.2 mg/dL (0.55-1.02); GLUCOSE,RANDOM 125 mg/dL (74-106); PHOSPHOROUS 6.9 mg/dL (2.5-4.9); POTASSIUM 4.8 mmol/L (3.5-5.1); SODIUM 136 mmol/L (136-145)
--- NOTE | 2017-11-08 17:23 | PN ---
Progress Note (short form) - Note Progress Note: Renal follow up for ESRD on HD This is a 37 year old woman with hx of ESRD on HD, DM Type 1 (uncontrolled), Hypertension, Osteomylitis, hx of PE/DVT, Atrial thrombus who presented with lethargy s/p taking too much gabapentin. s/p recent admission for unrespnsiveness/cardiac arrest with hyperglycemia. Pt seen on dialysis today, feels better. Goal UF on HD is 4L. Vital Signs Temperature 99.5 F 11/08/17 10:00 Pulse Rate 94 H 11/08/17 15:10 Respiratory Rate 18 11/08/17 15:10 Blood Pressure 186/113 11/08/17 15:10 O2 Sat by Pulse Oximetry (%) 98 11/08/17 09:00 Intake & Output 11/05/17 11/06/17 11/07/17 11/08/17 23:59 23:59 23:59 23:59 Intake Total 250 540 Balance 250 540 Weight 68.039 kg NAD awake and alert RRR, No M/R CTA soft NT/ND + edmea in Le CBC, BMP 11/08/17 11:56 11/08/17 11:56 Current Medications Acetaminophen (Tylenol -) 650 mg PO Q6H PRN PRN Reason: PAIN LEVEL 6-10 Last Admin: 11/08/17 06:36 Dose: 650 mg Clonidine (Catapres -) 0.3 mg PO TID [facility] Last Admin: 11/08/17 06:33 Dose: 0.3 mg Collagenase (Santyl -) 1 applic TP DAILY [facility]; Protocol Hydralazine HCl (Apresoline -) 100 mg PO TID [facility] Last Admin: 11/08/17 06:32 Dose: Not Given Sodium Chloride (Normal Saline -) 250 mls @ 3,000 mls/hr IV PRN PRN PRN Reason: Hypotension during Dialysis Stop: 11/09/17 10:14 Insulin Aspart (Novolog Vial Sliding Scale -) 1 vial SQ ACHS [facility]; Protocol Last Admin: 11/08/17 12:10 Dose: Not Given Insulin Detemir (Levemir Vial) 17 units SQ 0700,2200 [facility] Last Admin: 11/07/17 22:01 Dose: 12 units Labetalol HCl (Normodyne -) 500 mg PO TID [facility] Last Admin: 11/08/17 06:32 Dose: Not Given Losartan Potassium (Cozaar -) 100 mg PO DAILY [facility] Nifedipine (Procardia Xl -) 90 mg PO DAILY ROSA MARIA 37 year old woman with hx of ESRD on HD, DM Type 1 (uncontrolled), Hypertension , Osteomylitis, hx of PE/DVT, Atrial thrombus who presented with lethargy s/p taking too much gabapentin. #ESRD on HD #Lethagry/Weakness #Acute on Chronic Anemia #Metabolic acidosis #Hypertension #DM Type 3 Tolerating HD with 4L UF well renal diet, 1.2L fluid restriction max dose of gabapentin is 300mg for ESRD will tranfuse 2 units prbc, continue MACIE with HD Continue home antihypertensive meds Nathan Vo DO
[2017-11-08] MEDS: INSULIN (LEVEMIR) 100 UNITS/ML UNITS SQ SCH ×2 (17:52→22:49)
[2017-11-08] MEDS: LOSARTAN POTASSIUM 25 MG TABLET PO SCH (18:10)
[2017-11-08] MEDS: NIFEdipine E.R. 90 MG TABLET (FP) PO SCH (18:11)
[2017-11-08] MEDS: COLLAGENASE CLOSTRIDIUM HIST. 30 GRAMS TUBE TP SCH ×2 (18:13→18:22)
[2017-11-08] MEDS: oxyCODONE HCL 5 MG TABLET PO PRN (18:17)
[2017-11-08] MEDS ORDERED: INSULIN (NOVOLOG) ASPART 100 UNITS/ML 10ML VIAL ONE (20:01)
--- NOTE | 2017-11-08 20:29 | PN ---
Physical Exam: SUBJECTIVE: Patient seen and examined OBJECTIVE: Vital Signs Period Temp Pulse Resp BP Sys/Ames Pulse Ox Last 24 Hr 98.4 F-101.1 F 80-109 18-20 124-197/66-118 98-98 GENERAL: The patient is awake, alert, and fully oriented, in no acute distress. HEAD: Normal with no signs of trauma. EYES: PERRL, extraocular movements intact, sclera anicteric, conjunctiva clear. No ptosis. ENT: Ears normal, nares patent, oropharynx clear without exudates, moist mucous membranes. NECK: Trachea midline, full range of motion, supple. LUNGS: Breath sounds equal, clear to auscultation bilaterally, no wheezes, no crackles, no accessory muscle use. HEART: Regular rate and rhythm, S1, S2 without murmur, rub or gallop. ABDOMEN: Soft, nontender, nondistended, normoactive bowel sounds, no guarding, no rebound, no hepatosplenomegaly, no masses. EXTREMITIES: 2+ pulses, warm, well-perfused, no edema. NEUROLOGICAL: Cranial nerves II through XII grossly intact. Normal speech, gait not observed. PSYCH: Normal mood, normal affect. SKIN: Warm, dry, normal turgor, no rashes or lesions noted Laboratory Results - last 24 hr 11/07/17 11/07/17 11/08/17 06:25 20:42 03:50 WBC RBC Hgb Hct MCV MCH MCHC RDW Plt Count MPV Sodium Potassium Chloride Carbon Dioxide Anion Gap BUN Creatinine Creat Clearance w eGFR POC Glucometer 113 106 Random Glucose Calcium Phosphorus Blood Type B POSITIVE Antibody Screen Negative Crossmatch See Detail 11/08/17 11/08/17 11/08/17 06:32 10:08 11:56 WBC RBC Hgb Hct MCV MCH MCHC RDW Plt Count MPV Sodium 136 Potassium 4.8 Chloride 100 Carbon Dioxide 17 L Anion Gap 19 H BUN 68 H Creatinine 7.2 H Creat Clearance w eGFR 6.77 POC Glucometer 96 151 Random Glucose 125 H Calcium 8.4 L Phosphorus 6.9 H Blood Type Antibody Screen Crossmatch 11/08/17 11/08/17 11:56 17:59 WBC 10.7 H RBC 2.55 L Hgb 7.1 L Hct 22.0 L MCV 86.3 MCH 28.0 MCHC 32.4 RDW 16.5 H Plt Count 283 MPV 9.8 Sodium Potassium Chloride Carbon Dioxide Anion Gap BUN Creatinine Creat Clearance w eGFR POC Glucometer 265 Random Glucose Calcium Phosphorus Blood Type Antibody Screen Crossmatch Active Medications Generic Name Dose Route Start Last Admin Trade Name Freq PRN Reason Stop Dose Admin Acetaminophen 650 mg 11/07/17 20:47 11/08/17 18:11 Tylenol - PO 650 mg Q6H PRN Administration PAIN LEVEL 6-10 Clonidine 0.3 mg 11/07/17 14:00 11/08/17 17:52 Catapres - PO Not Given TID ROSA MARIA Collagenase 1 applic 11/08/17 10:00 11/08/17 18:22 Santyl - TP Not Given DAILY [facility] Protocol Hydralazine HCl 100 mg 11/07/17 14:00 11/08/17 17:51 Apresoline - PO Not Given TID ROSA MARIA Sodium Chloride 250 mls @ 3,000 mls/hr 11/08/17 10:15 Normal Saline - IV 11/09/17 10:14 PRN PRN Hypotension during Dialysis Insulin Aspart 1 vial 11/07/17 16:30 11/08/17 18:12 Novolog Vial Sliding Scale - SQ 8 units ACHS ROSA MARIA Administration Protocol Insulin Detemir 17 units 11/07/17 22:00 11/08/17 17:52 Levemir Vial SQ Not Given 0700,2200 ROSA MARIA Labetalol HCl 500 mg 11/07/17 14:00 11/08/17 17:53 Normodyne - PO Not Given TID ROSA MARIA Losartan Potassium 100 mg 11/08/17 10:00 11/08/17 18:10 Cozaar - PO 100 mg DAILY ROSA MARIA Administration Nifedipine 90 mg 11/08/17 10:00 11/08/17 18:11 Procardia Xl - PO 90 mg DAILY ROSA MARIA Administration Oxycodone HCl 10 mg 11/08/17 18:07 11/08/17 18:17 Roxicodone - PO 10 mg Q6H PRN Administration PAIN 6-10; IF TYLENOL NOT WORK ASSESSMENT/PLAN 27 year old female presenting with dizziness 1. Dizziness - likely related to self-medicated dose of gabapentin; max dose for ESRD is 300mg 2. ESRD on HD --HD today, tolerated --renal diet --1.2L fluid restriction (discussed with patient: bed and table covered with water pitchers, juice bottles, bags of salty chips) 3. Anemia of chronic disease --Hgb dropped to 7.1 --transfused 2U PRBC today 4. Right base infiltrate vs ateletasis - afebrile, no leukocytosis - observe off antibiotics 5. HTN - Cont home meds 6. DM II - ISS, BGM ACHS - Levemir 17 units BID 7. DVT - Heparin sq Visit type - Emergency Visit Emergency Visit: Yes ED Registration Date: 11/07/17 Care time: The patient presented to the Emergency Department on the above date and was hospitalized for further evaluation of their emergent condition. - New Patient This patient is new to me today: Yes Date on this admission: 11/08/17 - Critical Care Critical Care patient: No
[2017-11-09] MEDS: oxyCODONE HCL 5 MG TABLET PO PRN ×4 (00:46→22:52)
[2017-11-09] MEDS: ACETAMINOPHEN 325 MG TABLET (FP) PO PRN ×4 (00:47→22:53)
[2017-11-09] MEDS: cloNIDine HCL 0.1 MG TABLET PO SCH ×3 (06:51→22:52)
[2017-11-09] MEDS: LABETALOL HCL 200 MG TABLET (FP) PO SCH ×3 (06:53→23:33)
[2017-11-09] MEDS: INSULIN (LEVEMIR) 100 UNITS/ML UNITS SQ SCH ×2 (06:53→22:53)
[2017-11-09] MEDS: hydrALAZINE HCL 50 MG TABLET (FP) PO SCH ×3 (06:53→23:32)
[2017-11-09] MEDS: INSULIN SLIDING SCALE (NOVOLOG) 1 VIAL SQ SCH ×4 (06:54→22:53)
[2017-11-09 10:17] LABS: BASO % 0.5 % (0-2.0); HEMATOCRIT 27.7 % (32.4-45.2); LYMPH % 5.6 % (8-40); MCH 27.8 pg (25.7-33.7); MCHC 32.6 g/dl (32.0-36.0); MEAN CELL VOLUME 85.4 fl (80-96); MEAN PLT VOLUME 9.6 fl (7.5-11.1); MONO % 13.1 % (3.8-10.2); NEUT % 79.8 % (42.8-82.8); PLATELET COUNT 334 K/MM3 (134-434); RBC 3.25 M/mm3 (3.60-5.2); RDW 16.1 % (11.6-15.6); WHITE BLOOD COUNT 10.4 K/mm3 (4.0-10.0)
[2017-11-09] MEDS: NIFEdipine E.R. 90 MG TABLET (FP) PO SCH (10:31)
[2017-11-09] MEDS: LOSARTAN POTASSIUM 25 MG TABLET PO SCH (10:31)
[2017-11-09 11:01] LABS: ALBUMIN 2.6 g/dl (3.4-5.0); ANION GAP 8 (8-16); BLOOD UREA NITROGEN 30 mg/dL (7-18); CALCIUM 8.8 mg/dL (8.5-10.1); CHLORIDE 98 mmol/L (98-107); CO2 33 mmol/L (21-32); CREATININE 4.1 mg/dL (0.55-1.02); MAGNESIUM 1.9 mg/dL (1.8-2.4); POTASSIUM 3.7 mmol/L (3.5-5.1); SGOT/AST 14 U/L (15-37); SGPT/ALT 6 U/L (12-78); SODIUM 139 mmol/L (136-145)
[2017-11-09] MEDS ORDERED: INSULIN (NOVOLOG) ASPART 100 UNITS/ML 10ML VIAL ONE (11:09)
[2017-11-09 11:33] LABS: BILIRUBIN,TOTAL 0.9 mg/dL (0.2-1.0); TOT PROT 7.1 g/dl (6.4-8.2)
--- NOTE | 2017-11-09 11:39 | PN ---
Progress Note (short form) - Note Progress Note: Subjective: The patient was seen and examined at the bedside, she has no complaints at this time. S/p 2u PRBC yesterday, Hgb 9 today F/u repeat chest x-ray Current Medications Generic Name Dose Route Start Last Admin Trade Name Freq PRN Reason Stop Dose Admin Acetaminophen 650 mg 11/07/17 20:47 11/09/17 07:38 Tylenol - PO 650 mg Q6H PRN Administration PAIN LEVEL 6-10 Clonidine 0.3 mg 11/07/17 14:00 11/09/17 06:51 Catapres - PO 0.3 mg TID ROSA MARIA Administration Collagenase 1 applic 11/08/17 10:00 11/08/17 18:22 Santyl - TP Not Given DAILY [facility] Protocol Hydralazine HCl 100 mg 11/07/17 14:00 11/09/17 06:53 Apresoline - PO Not Given TID [facility] Insulin Aspart 1 vial 11/07/17 16:30 11/09/17 06:54 Novolog Vial Sliding Scale - SQ Not Given ACHS [facility] Protocol Insulin Detemir 17 units 11/07/17 22:00 11/09/17 06:53 Levemir Vial SQ Not Given 0700,2200 ROSA MARIA Labetalol HCl 500 mg 11/07/17 14:00 11/09/17 06:53 Normodyne - PO Not Given TID [facility] Losartan Potassium 100 mg 11/08/17 10:00 11/09/17 10:31 Cozaar - PO 100 mg DAILY ROSA MARIA Administration Nifedipine 90 mg 11/08/17 10:00 11/09/17 10:31 Procardia Xl - PO Not Given DAILY ROSA MARIA Oxycodone HCl 10 mg 11/08/17 18:07 11/09/17 07:38 Roxicodone - PO 10 mg Q6H PRN Administration PAIN 6-10; IF TYLENOL NOT WORK Objective: Vital Signs Period Temp Pulse Resp BP Sys/Ames Pulse Ox Last 24 Hr 98.2 F-101.1 F 78-109 18-20 118-197/65-118 98 Physical Exam: Patient refused CBCD WBC 10.4 K/mm3 (4.0-10.0) H 11/09/17 09:18 RBC 3.25 M/mm3 (3.60-5.2) L 11/09/17 09:18 Hgb 9.0 GM/dL (10.7-15.3) L 11/09/17 09:18 Hct 27.7 % (32.4-45.2) L D 11/09/17 09:18 MCV 85.4 fl (80-96) 11/09/17 09:18 MCHC 32.6 g/dl (32.0-36.0) 11/09/17 09:18 RDW 16.1 % (11.6-15.6) H 11/09/17 09:18 Plt Count 334 K/MM3 (134-434) 11/09/17 09:18 MPV 9.6 fl (7.5-11.1) 11/09/17 09:18 CMP Sodium 136 mmol/L (136-145) 11/08/17 11:56 Potassium 4.8 mmol/L (3.5-5.1) 11/08/17 11:56 Chloride 100 mmol/L (98-107) 11/08/17 11:56 Carbon Dioxide 17 mmol/L (21-32) L 11/08/17 11:56 Anion Gap 19 (8-16) H 11/08/17 11:56 BUN 68 mg/dL (7-18) H 11/08/17 11:56 Creatinine 7.2 mg/dL (0.55-1.02) H 11/08/17 11:56 Creat Clearance w eGFR 6.77 (>60) 11/08/17 11:56 Random Glucose 125 mg/dL (74-106) H 11/08/17 11:56 Calcium 8.4 mg/dL (8.5-10.1) L 11/08/17 11:56 Total Bilirubin 0.8 mg/dL (0.2-1.0) 11/07/17 06:25 AST 29 U/L (15-37) 11/07/17 06:25 ALT 9 U/L (12-78) L 11/07/17 06:25 Alkaline Phosphatase 1075 U/L (45-117) H D 11/07/17 06:25 Total Protein 7.6 g/dl (6.4-8.2) 11/07/17 06:25 Albumin 2.9 g/dl (3.4-5.0) L 11/07/17 06:25 CARDIAC ENZYMES Creatine Kinase 42 IU/L (26-192) 11/07/17 06:25 Troponin I < 0.02 ng/ml (0.00-0.05) 11/07/17 06:25 Microbiology 11/07/17 06:30 Blood - Peripheral Venous Blood Culture - Preliminary NO GROWTH OBTAINED AFTER 48 HOURS, INCUBATION TO CONTINUE FOR 3 DAYS. 11/07/17 06:30 Blood - Peripheral Venous Blood Culture - Preliminary NO GROWTH OBTAINED AFTER 48 HOURS, INCUBATION TO CONTINUE FOR 3 DAYS. Assessment: This is a 27 year old female with PMHx of ESRD on HD (secondary to DM), IDDM, Hypertension, PVD, Atrial thrombus recently discharged after hospitalization for AMS/Unresponsiveness at home with cardiac arrest requiring CPR in the field, who presented to the ED with shortness of breath and dizziness. Plan: 1) Dizziness - Resolved 2) Anemia of chronic disease - S/p 2u PRBC yesterday - Hgb 9 today - Continue to trend 3) ESRD on HD - Tolerated HD yesterday 4) Right base infiltrate vs. atelectasis - Patient denies cough, fever, chills - Repeat chest x-ray today 5) HTN - Continue home meds 6) DM - BGM ACHS - ISS ACHS - Levemir 17u sq bid 7) Dispo: - Once condition improves CODE STATUS: FULL CODE Visit type - Emergency Visit Emergency Visit: Yes ED Registration Date: 11/07/17 Care time: The patient presented to the Emergency Department on the above date and was hospitalized for further evaluation of their emergent condition. - New Patient This patient is new to me today: Yes Date on this admission: 11/09/17 - Critical Care Critical Care patient: No
[2017-11-09 11:55] LABS: ALK PHOS 1199 U/L (45-117)
[2017-11-09 11:58] LABS: GLUCOSE,RANDOM 38 mg/dL (74-106)
[2017-11-09] MEDS: COLLAGENASE CLOSTRIDIUM HIST. 30 GRAMS TUBE TP SCH (14:38)
--- NOTE | 2017-11-09 17:48 | CON.PSL ---
Psychology Consult Consult Specialty:: Neuropsychology Reason for Consultation:: Anxiety and Hopelessness History Provided By: Patient, Family Member Limitations to Obtaining History: No Limitations Current Medications: Active Medications Acetaminophen (Tylenol -) 650 mg PO Q6H PRN PRN Reason: PAIN LEVEL 6-10 Last Admin: 11/09/17 14:17 Dose: 650 mg Clonidine (Catapres -) 0.3 mg PO TID [facility] Last Admin: 11/09/17 14:13 Dose: 0.3 mg Collagenase (Santyl -) 1 applic TP DAILY [facility]; Protocol Last Admin: 11/09/17 14:38 Dose: Not Given Hydralazine HCl (Apresoline -) 100 mg PO TID [facility] Last Admin: 11/09/17 14:14 Dose: Not Given Insulin Aspart (Novolog Vial Sliding Scale -) 1 vial SQ ACHS [facility]; Protocol Last Admin: 11/09/17 16:57 Dose: 6 units Insulin Detemir (Levemir Vial) 17 units SQ 0700,2200 [facility] Last Admin: 11/09/17 06:53 Dose: Not Given Labetalol HCl (Normodyne -) 500 mg PO TID [facility] Last Admin: 11/09/17 14:38 Dose: Not Given Losartan Potassium (Cozaar -) 100 mg PO DAILY [facility] Last Admin: 11/09/17 10:31 Dose: 100 mg Nifedipine (Procardia Xl -) 90 mg PO DAILY [facility] Last Admin: 11/09/17 10:31 Dose: Not Given Oxycodone HCl (Roxicodone -) 10 mg PO Q6H PRN PRN Reason: PAIN 6-10; IF TYLENOL NOT WORK Last Admin: 11/09/17 14:17 Dose: 10 mg Allergies: Allergies Allergy/AdvReac Type Severity Reaction Status Date / Time lactose AdvReac Verified 11/07/17 04:44 Does patient have pain?: Yes Pain Location Body Site: Chest (Deep breathing aggrevates pain level.) Pain Description: Tightness Pain Intensity: 6 Hx Alcohol Use: No Hx Substance Use: No Hx Substance Use Treatment: No Current Medical Exam-Psy Orientation: Time, Person, Place Immediate Term Memory: 06/05 Expressive: Slurred Receptive: Age Appropriate Comprehension of Spoken Words Hallucinations: Absent Thought Process: Intact Depression: Mild Hopelessness: Yes Loss of Interest: No Anxiety Level: Moderate (The patient has a moderate level of anxiety.) Danger to Self and Others: No Sleep: Poorly (She experiences difficulty falling asleep and also early childhood services coordinator awakenings.) Appetite: Good Serial Sevens Intact: Yes Repeats 3 words told earlier: 06/05 Support System: Parent Leisure activities: Stay at home Problem List - Problem (1) Anxiety about health Code(s): F41.8 - OTHER SPECIFIED ANXIETY DISORDERS Assessment/Plan The patient is a cindy lady experiencing anxiety and hopelessness associated with her renal disease, cardiac condition, and other health issues. She exhibited slurring of speech, tingling and numbness in both lower extremities and occasional tingling in her R and L hands. Standard relaxation exercises that incorporate deep breathing are contraindicated at this time due to her chest pain. Psychotherapy to help her cope with her physical conditions is recommended. The patient will be seen upon my return from vacation after next week.
[2017-11-10] MEDS: ACETAMINOPHEN 325 MG TABLET (FP) PO PRN ×2 (05:08→18:11)
[2017-11-10] MEDS: oxyCODONE HCL 5 MG TABLET PO PRN ×2 (05:09→18:10)
[2017-11-10] MEDS ORDERED: SODIUM CHLORIDE 250 ML IV PRN ×2 (07:00→16:53)
[2017-11-10] MEDS: cloNIDine HCL 0.1 MG TABLET PO SCH ×3 (07:01→21:15)
[2017-11-10] MEDS: LABETALOL HCL 200 MG TABLET (FP) PO SCH ×3 (07:01→21:16)
[2017-11-10] MEDS: INSULIN (LEVEMIR) 100 UNITS/ML UNITS SQ SCH ×2 (07:04→21:20)
[2017-11-10] MEDS: hydrALAZINE HCL 50 MG TABLET (FP) PO SCH ×3 (07:04→21:16)
[2017-11-10] MEDS: INSULIN SLIDING SCALE (NOVOLOG) 1 VIAL SQ SCH ×4 (07:04→21:22)
[2017-11-10] MEDS ORDERED: CEFAZOLIN 2 GM/D5W 2 GM/50 ML ML IVPB ONE (07:45)
[2017-11-10] MEDS ORDERED: ceFAZolin 2 GRAM PREMIX BAG IVPB ONE (08:00)
[2017-11-10] MEDS: ALBUTEROL SO4 0.083% IH SOL 2.5 MG/3 ML VIAL.NEB. NEB PRN (08:45)
[2017-11-10] MEDS ORDERED: DEXTROSE 50%-WATER - 25 GM/50 ML VIAL IVPUSH ONE (09:21)
[2017-11-10] MEDS ORDERED: DEXTROSE 50%-WATER 25 GM/50 ML DISP.SYRIN ONE (09:23)
--- NOTE | 2017-11-10 09:34 | CON.PULM ---
Consult Consult Specialty:: PULM/CCM Referred by:: Hospitalist Reason for Consultation:: RLL density - History of Present Illness Chief Complaint: CP / SOB History of Present Illness: 27 F, ESRD on HD (secondary to DM), IDDM, CHF, Hypertension, PVD, Atrial thrombus, and multiple admissions for DKA. Admitted via the ER due to CP, SOB, dizziness, and muscle cramps. Reports some dry cough over the past few days. No travel history or sick contacts. No hemoptysis or night sweats. CXR: RLL infiltrate / blunted right CP angle / cardiomegaly. - History Source History Provided By: Patient Limitations to Obtaining History: No Limitations - Past Medical History Cardio/Vascular: Yes: CHF, HTN, Other (thrombus in atrium, PE, DVT) Pulmonary: No: Sleep Apnea Renal/: Yes: Renal Failure, Hemodialysis ...LMP: 05/13/17 ...: No Infectious Disease: Yes: MRSA, Other Endocrine: Yes: Diabetes Mellitus (type 1 on insulin pump) Additional Medical History: DVT, PE on coumadin - Past Surgical History Past Surgical History: Yes: AV Fistula/Graft (Right arm) - Alcohol/Substance Use Hx Alcohol Use: No History of Substance Use: reports: None - Smoking History Smoking history: Never smoked Have you smoked in the past 12 months: No Aproximately how many cigarettes per day: 10 If you are a former smoker, when did you quit?: couple months ago - Social History Usual Living Arrangement: With Parent ADL: Independent Occupation: unemployed History of Recent Travel: No Home Medications - Allergies Allergies/Adverse Reactions: Allergies Allergy/AdvReac Type Severity Reaction Status Date / Time lactose AdvReac Verified 11/07/17 04:44 - Home Medications Home Medications: Ambulatory Orders Losartan Potassium [Cozaar -] 100 mg PO DAILY 12/21/16 cloNIDine HCL [Catapres -] 0.3 mg PO TID 06/28/17 Oxycodone HCl [Oxycontin] 10 mg PO Q6H PRN 07/12/17 Pantoprazole Sodium [Protonix -] 20 mg PO DAILY #7 tablet.ec 08/30/17 Hydralazine HCl 100 mg PO TID 09/01/17 Collagenase Clostridium Hist. [Santyl -] 1 applic TP DAILY #1 tube 10/01/17 Insulin Detemir [Levemir Flextouch] 17 unit SQ BID #1 insuln.pen 10/01/17 Labetalol HCl [Normodyne -] 500 mg PO TID #225 tablet 10/01/17 Nifedipine ER [Procardia XL -] 90 mg PO DAILY #90 tab.er.24 10/01/17 Insulin Lispro [Humalog Kwikpen U-100] 100 unit SQ ASDIR #10 insuln.pen oxyCODONE HCL [Roxicodone -] 10 mg PO Q6H PRN #20 tablet MDD 4 10/29/17 Family Disease History - Family Disease History Family Disease History: Diabetes: Grandparent (HTN), Heart Disease: Grandparent , Other: Father (unknown), Mother (HTN) Review of Systems - Review of Systems Constitutional: reports: Lethargy, Malaise. denies: Chills, Fever, Night Sweats , Weakness Eyes: reports: No Symptoms HENT: reports: No Symptoms Neck: reports: No Symptoms Cardiovascular: denies: Chest Pain, Shortness of Breath Respiratory: reports: Hemoptysis, Wheezing. denies: Cough, SOB, SOB on Exertion Gastrointestinal: reports: No Symptoms Genitourinary: reports: No Symptoms Breasts: reports: No Symptoms Reported Musculoskeletal: reports: Back Pain, Muscle Pain, Muscle Cramps, Muscle Weakness Integumentary: reports: No Symptoms Neurological: reports: No Symptoms Endocrine: reports: No Symptoms Hematology/Lymphatic: reports: No Symptoms Psychiatric: reports: No Symptoms Physical Exam Vital Sings: Vital Signs Temperature 99.6 F 11/10/17 05:31 Pulse Rate 94 H 11/10/17 05:31 Respiratory Rate 20 11/10/17 05:31 Blood Pressure 144/92 11/10/17 05:31 O2 Sat by Pulse Oximetry (%) 100 11/09/17 21:00 Constitutional: Yes: No Distress Eyes: Yes: Conjunctiva Clear, EOM Intact HENT: Yes: Atraumatic, Normocephalic Neck: Yes: Supple, Trachea Midline Cardiovascular: Yes: Regular Rate and Rhythm Respiratory: Yes: Cough, Diminished, On Nasal O2, Rhonchi. No: Accessory Muscle Use, Rales, Stridor, Tachypnea, Wheezes ...Inspection: Yes: WNL ...Clubbing: No Gastrointestinal: Yes: Normal Bowel Sounds, Soft Musculoskeletal: Yes: Back Pain Extremities: Yes: WNL Edema: No Peripheral Pulses WNL: Yes Integumentary: Yes: Venous Stasis Changes Neurological: Yes: Alert, Oriented ...Motor Strength: WNL Psychiatric: Yes: WNL, Alert, Oriented Labs: CBC, BMP 11/09/17 09:18 11/09/17 09:18 Imaging - Results Chest X-ray: Report Reviewed, Image Reviewed Problem List - Problems (1) Atelectasis of right lung Code(s): J98.11 - ATELECTASIS (2) Pneumonia Code(s): J18.9 - PNEUMONIA, UNSPECIFIED ORGANISM (3) Chronic GERD Code(s): K21.9 - GASTRO-ESOPHAGEAL REFLUX DISEASE WITHOUT ESOPHAGITIS (4) Diabetes mellitus, insulin dependent (IDDM), uncontrolled Code(s): E10.65 - TYPE 1 DIABETES MELLITUS WITH HYPERGLYCEMIA (5) ESRD (end stage renal disease) on dialysis Code(s): N18.6 - END STAGE RENAL DISEASE; Z99.2 - DEPENDENCE ON RENAL DIALYSIS (6) Gastroparesis Code(s): K31.84 - GASTROPARESIS (7) HTN (hypertension) Code(s): I10 - ESSENTIAL (PRIMARY) HYPERTENSION Assessment/Plan IMP: Suspected RLL PNA / atelectasis PLAN: Currently on Zosyn Check sputum O2 as needed Daily Medrol x 5 days BD TX PRN HD per Renal Incentive Spirometry Thank you. Dr Ballesteros
[2017-11-10] MEDS ORDERED: PT OWN MED DRAWER 7, Y5N ONE (10:20)
[2017-11-10] MEDS: methylPREDNISolone NA SUCC 40 MG/1 ML VIAL IVPUSH SCH (10:23)
[2017-11-10] MEDS: COLLAGENASE CLOSTRIDIUM HIST. 30 GRAMS TUBE TP SCH (11:24)
[2017-11-10] MEDS: LOSARTAN POTASSIUM 25 MG TABLET PO SCH (11:24)
[2017-11-10] MEDS: NIFEdipine E.R. 90 MG TABLET (FP) PO SCH (11:24)
[2017-11-10] MEDS ORDERED: PIPERACILLIN/TAZOBACTAM 3.375 GM VIAL IVPB ONE (11:27)
[2017-11-10] MEDS ORDERED: DEXTROSE 5%-WATER - 50 ML IVPB ONE ×2 (11:27→17:24)
[2017-11-10 11:50] LABS: BASO % 0.9 % (0-2.0); EOS % 0.5 % (0-4.5); HEMATOCRIT 25.9 % (32.4-45.2); HEMOGLOBIN 8.5 GM/dL (10.7-15.3); LYMPH % 5.9 % (8-40); MCH 28.3 pg (25.7-33.7); MEAN CELL VOLUME 85.8 fl (80-96); MEAN PLT VOLUME 8.9 fl (7.5-11.1); MONO % 18.2 % (3.8-10.2); NEUT % 74.5 % (42.8-82.8); PLATELET COUNT 368 K/MM3 (134-434); RBC 3.02 M/mm3 (3.60-5.2); RDW 16.2 % (11.6-15.6); WHITE BLOOD COUNT 12.5 K/mm3 (4.0-10.0)
[2017-11-10] MEDS ORDERED: EPOETIN ALFA 20,000 UNIT/1 ML VIAL IVPUSH ONE (12:15)
[2017-11-10 12:35] LABS: ALBUMIN 2.6 g/dl (3.4-5.0); ANION GAP 16 (8-16); BLOOD UREA NITROGEN 45 mg/dL (7-18); CHLORIDE 97 mmol/L (98-107); CO2 25 mmol/L (21-32); CREATININE 5.7 mg/dL (0.55-1.02); GLUCOSE,RANDOM 104 mg/dL (74-106); POTASSIUM 4.2 mmol/L (3.5-5.1); SGOT/AST 31 U/L (15-37); SGPT/ALT 7 U/L (12-78); SODIUM 138 mmol/L (136-145)
[2017-11-10 12:48] LABS: PHOSPHOROUS 5.8 mg/dL (2.5-4.9)
[2017-11-10 12:49] LABS: ALK PHOS 1355 U/L (45-117); BILIRUBIN,TOTAL 1.2 mg/dL (0.2-1.0)
--- NOTE | 2017-11-10 13:13 | PN ---
Progress Note (short form) - Note Progress Note: Subjective: The patient was seen and examined at the bedside, she has no complaints at this time. Current Medications Generic Name Dose Route Start Last Admin Trade Name Freq PRN Reason Stop Dose Admin Acetaminophen 650 mg 11/07/17 20:47 11/10/17 05:08 Tylenol - PO 650 mg Q6H PRN Administration PAIN LEVEL 6-10 Albuterol Sulfate 1 amp 11/10/17 07:24 11/10/17 08:45 Ventolin 0.083% Nebulizer Soln - NEB 1 amp Q4H PRN Administration SHORT OF BREATH/WHEEZING Clonidine 0.3 mg 11/07/17 14:00 11/10/17 07:01 Catapres - PO 0.3 mg TID [facility] Administration Collagenase 1 applic 11/08/17 10:00 11/10/17 11:24 Santyl - TP Not Given DAILY [facility] Protocol Hydralazine HCl 100 mg 11/07/17 14:00 11/10/17 07:04 Apresoline - PO Not Given TID [facility] Sodium Chloride 250 mls @ 3,000 mls/hr 11/10/17 07:00 Normal Saline - IV 11/11/17 07:00 PRN PRN Hypotension during Dialysis Piperacillin Sod/Tazobactam 50 mls @ 100 mls/hr 11/10/17 18:00 Sod 2.25 gm/ Dextrose IVPB Q8H-IV [facility] Protocol Insulin Aspart 1 vial 11/07/17 16:30 11/10/17 07:04 Novolog Vial Sliding Scale - SQ Not Given ACHS [facility] Protocol Insulin Detemir 10 units 11/10/17 08:56 Levemir Vial SQ 0700,2200 [facility] Labetalol HCl 500 mg 11/07/17 14:00 11/10/17 07:01 Normodyne - PO 500 mg TID [facility] Administration Losartan Potassium 100 mg 11/08/17 10:00 11/10/17 11:24 Cozaar - PO Not Given DAILY [facility] Methylprednisolone Sodium Succinate 40 mg 11/10/17 10:00 11/10/17 10:23 Solu-Medrol - IVPUSH 11/14/17 10:01 40 mg DAILY [facility] Administration Nifedipine 90 mg 11/08/17 10:00 11/10/17 11:24 Procardia Xl - PO Not Given DAILY [facility] Oxycodone HCl 10 mg 11/08/17 18:07 11/10/17 05:09 Roxicodone - PO 10 mg Q6H PRN Administration PAIN 6-10; IF TYLENOL NOT WORK Objective: Vital Signs Period Temp Pulse Resp BP Sys/Ames Pulse Ox Last 24 Hr 98.7 F-102.1 F 84-105 18-20 127-144/72-92 100 Physical Exam: Patient refused CBCD WBC 12.5 K/mm3 (4.0-10.0) H 11/10/17 11:00 RBC 3.02 M/mm3 (3.60-5.2) L 11/10/17 11:00 Hgb 8.5 GM/dL (10.7-15.3) L 11/10/17 11:00 Hct 25.9 % (32.4-45.2) L 11/10/17 11:00 MCV 85.8 fl (80-96) 11/10/17 11:00 MCHC 33.0 g/dl (32.0-36.0) 11/10/17 11:00 RDW 16.2 % (11.6-15.6) H 11/10/17 11:00 Plt Count 368 K/MM3 (134-434) 11/10/17 11:00 MPV 8.9 fl (7.5-11.1) 11/10/17 11:00 CMP Sodium 138 mmol/L (136-145) 11/10/17 11:00 Potassium 4.2 mmol/L (3.5-5.1) 11/10/17 11:00 Chloride 97 mmol/L (98-107) L 11/10/17 11:00 Carbon Dioxide 25 mmol/L (21-32) 11/10/17 11:00 Anion Gap 16 (8-16) 11/10/17 11:00 BUN 45 mg/dL (7-18) H 11/10/17 11:00 Creatinine 5.7 mg/dL (0.55-1.02) H 11/10/17 11:00 Creat Clearance w eGFR 8.86 (>60) 11/10/17 11:00 Random Glucose 104 mg/dL (74-106) 11/10/17 11:00 Calcium 8.0 mg/dL (8.5-10.1) L 11/10/17 11:00 Total Bilirubin 1.2 mg/dL (0.2-1.0) H 11/10/17 11:00 AST 31 U/L (15-37) 11/10/17 11:00 ALT 7 U/L (12-78) L 11/10/17 11:00 Alkaline Phosphatase 1355 U/L (45-117) H D 11/10/17 11:00 Total Protein 7.0 g/dl (6.4-8.2) 11/10/17 11:00 Albumin 2.6 g/dl (3.4-5.0) L 11/10/17 11:00 CARDIAC ENZYMES Creatine Kinase 42 IU/L (26-192) 11/07/17 06:25 Troponin I < 0.02 ng/ml (0.00-0.05) 11/07/17 06:25 Microbiology 11/07/17 06:30 Blood - Peripheral Venous Blood Culture - Preliminary NO GROWTH OBTAINED AFTER 72 HOURS, INCUBATION TO CONTINUE FOR 2 DAYS. 11/07/17 06:30 Blood - Peripheral Venous Blood Culture - Preliminary NO GROWTH OBTAINED AFTER 72 HOURS, INCUBATION TO CONTINUE FOR 2 DAYS. Assessment: This is a 27 year old female with PMHx of ESRD on HD (secondary to DM), IDDM, Hypertension, PVD, Atrial thrombus recently discharged after hospitalization for AMS/Unresponsiveness at home with cardiac arrest requiring CPR in the field, who presented to the ED with shortness of breath and dizziness. Plan: 1) Dizziness - Resolved 2) Anemia of chronic disease - S/p 2u PRBC on 11/08/17 - Hgb 8.5 today, down trending, continue to trend - Continue to trend 3) Leukocytosis - Fever overnight, tmax 102.1 - Chest x-ray with worsening congestive changes, right effusion and density at the right base - Started on Zosyn, discussed with Dr. Rodrigeus - Appreciate pulmonary consult 4) ESRD on HD - For HD today 5) HTN - Continue home meds 6) DM - BGM ACHS - ISS ACHS - Hypoglycemia in the AM, will decrease Levemir to 10u sq bid (patient reports non-compliance with diabetic diet at home. She may require more insulin upon discharge. Discussed with patient need to check blood sugar closely at home) 7) Dispo: - Once condition improves CODE STATUS: FULL CODE Visit type - Emergency Visit Emergency Visit: Yes ED Registration Date: 11/07/17 Care time: The patient presented to the Emergency Department on the above date and was hospitalized for further evaluation of their emergent condition. - New Patient This patient is new to me today: No - Critical Care Critical Care patient: No
--- NOTE | 2017-11-10 13:15 | CON.ID ---
Consult Consult Specialty:: infectious diseases Reason for Consultation:: pneumonia - History of Present Illness Chief Complaint: chest pain,sob History of Present Illness: 27 year old female with pmhx of ESRD on HD (secondary to DM), IDDM, Hypertension , PVD, Atrial thrombus recently discharged after hospitalization for AMS/ Unresponsiveness at home with cardiac arrest requiring CPR in the field presented last night with dizziness and sob. PT states she took an increased gabapentin dose of 600mg and began to feel severely dizzy. patient mentions that she also came to the hospital because of sob and it was very difficult for her to breathe says she is slightly better now but is very uncomfortable also since admission her wbc has been increasing i was called in to evaluate the increasing wbc and possibility of pneumonia - History Source History Provided By: Patient Limitations to Obtaining History: No Limitations - Past Medical History Cardio/Vascular: Yes: CHF, HTN, Other (thrombus in atrium, PE, DVT) Pulmonary: No: Sleep Apnea Renal/: Yes: Renal Failure, Hemodialysis ...LMP: 05/13/17 ...: No Infectious Disease: Yes: MRSA, Other Endocrine: Yes: Diabetes Mellitus (type 1 on insulin pump) Additional Medical History: DVT, PE on coumadin - Past Surgical History Past Surgical History: Yes: AV Fistula/Graft (Right arm) - Alcohol/Substance Use Hx Alcohol Use: No History of Substance Use: reports: None - Smoking History Smoking history: Never smoked Have you smoked in the past 12 months: No Aproximately how many cigarettes per day: 10 If you are a former smoker, when did you quit?: couple months ago - Social History Usual Living Arrangement: With Parent ADL: Independent Occupation: unemployed History of Recent Travel: No Home Medications - Allergies Allergies/Adverse Reactions: Allergies Allergy/AdvReac Type Severity Reaction Status Date / Time lactose AdvReac Verified 11/07/17 04:44 - Home Medications Home Medications: Ambulatory Orders Losartan Potassium [Cozaar -] 100 mg PO DAILY 12/21/16 cloNIDine HCL [Catapres -] 0.3 mg PO TID 06/28/17 Oxycodone HCl [Oxycontin] 10 mg PO Q6H PRN 07/12/17 Pantoprazole Sodium [Protonix -] 20 mg PO DAILY #7 tablet.ec 08/30/17 Hydralazine HCl 100 mg PO TID 09/01/17 Collagenase Clostridium Hist. [Santyl -] 1 applic TP DAILY #1 tube 10/01/17 Insulin Detemir [Levemir Flextouch] 17 unit SQ BID #1 insuln.pen 10/01/17 Labetalol HCl [Normodyne -] 500 mg PO TID #225 tablet 10/01/17 Nifedipine ER [Procardia XL -] 90 mg PO DAILY #90 tab.er.24 10/01/17 Insulin Lispro [Humalog Kwikpen U-100] 100 unit SQ ASDIR #10 insuln.pen oxyCODONE HCL [Roxicodone -] 10 mg PO Q6H PRN #20 tablet MDD 4 10/29/17 Family Disease History - Family Disease History Family Disease History: Diabetes: Grandparent (HTN), Heart Disease: Grandparent , Other: Father (unknown), Mother (HTN) Review of Systems - Review of Systems Constitutional: reports: No Symptoms Eyes: reports: No Symptoms HENT: reports: No Symptoms Neck: reports: No Symptoms Cardiovascular: reports: No Symptoms Respiratory: reports: SOB, Other Gastrointestinal: reports: No Symptoms Genitourinary: reports: No Symptoms Breasts: reports: No Symptoms Reported Musculoskeletal: reports: Back Pain, Other Integumentary: reports: No Symptoms Neurological: reports: No Symptoms Endocrine: reports: No Symptoms Hematology/Lymphatic: reports: No Symptoms Psychiatric: reports: No Symptoms Physical Exam Vital Signs: Vital Signs Temperature 99 F 11/10/17 11:00 Pulse Rate 84 11/10/17 13:00 Respiratory Rate 18 11/10/17 13:00 Blood Pressure 142/91 11/10/17 13:00 O2 Sat by Pulse Oximetry (%) 100 11/09/17 21:00 Constitutional: Yes: Calm, Mild Distress, Other (very weak) Neck: Yes: Supple Cardiovascular: Yes: Regular Rate and Rhythm Respiratory: Yes: Regular, On Nasal O2, Poor Air Entry, Rhonchi Gastrointestinal: Yes: Normal Bowel Sounds, Soft Musculoskeletal: Yes: WNL Extremities: Yes: Other Neurological: Yes: Alert, Oriented Psychiatric: Yes: Alert, Oriented Labs: CBC, BMP 11/10/17 11:00 11/10/17 11:00 Imaging - Results Chest X-ray: Report Reviewed, Image Reviewed Cat Scan: Report Reviewed, Image Reviewed Assessment/Plan Problem List - Problems (1) Atelectasis of right lung Code(s): J98.11 - ATELECTASIS (2) Pneumonia Code(s): J18.9 - PNEUMONIA, UNSPECIFIED ORGANISM (3) Chronic GERD Code(s): K21.9 - GASTRO-ESOPHAGEAL REFLUX DISEASE WITHOUT ESOPHAGITIS (4) Diabetes mellitus, insulin dependent (IDDM), uncontrolled Code(s): E10.65 - TYPE 1 DIABETES MELLITUS WITH HYPERGLYCEMIA (5) ESRD (end stage renal disease) on dialysis Code(s): N18.6 - END STAGE RENAL DISEASE; Z99.2 - DEPENDENCE ON RENAL DIALYSIS (6) Gastroparesis Code(s): K31.84 - GASTROPARESIS (7) HTN (hypertension) Code(s): I10 - ESSENTIAL (PRIMARY) HYPERTENSION plan will start patient on abx dialysis close watch patient very immunocompromised rest as per the team
[2017-11-10] MEDS: PIPERACILLIN/TAZOB 3.375 GM 3.375 GM in DEXTROSE 5%-WATER - 50 ML IVPB ONE ×2 (13:16→15:05)
--- NOTE | 2017-11-10 16:53 | PN ---
Progress Note (short form) - Note Progress Note: Renal follow up for ESRD on HD Pt seen and examined at the bedside s/p dialysis today with 4L UF has mild sob despite UF no fevers, chills, N/V/D, Abd pain, CP Vital Signs Temperature 98.8 F 11/10/17 15:32 Pulse Rate 89 11/10/17 15:32 Respiratory Rate 18 11/10/17 15:32 Blood Pressure 153/79 11/10/17 15:32 O2 Sat by Pulse Oximetry (%) 99 11/10/17 09:00 Intake & Output 11/07/17 11/08/17 11/09/17 11/10/17 23:59 23:59 23:59 23:59 Intake Total 250 640 650 Balance 250 640 650 Weight 68.039 kg 67.313 kg 69.626 kg NAD awake and alert RRR, No M/R CTA soft NT/ND + edmea in Le CBC, BMP 11/10/17 11:00 11/10/17 11:00 Current Medications Acetaminophen (Tylenol -) 650 mg PO Q6H PRN PRN Reason: PAIN LEVEL 6-10 Last Admin: 11/10/17 05:08 Dose: 650 mg Albuterol Sulfate (Ventolin 0.083% Nebulizer Soln -) 1 amp NEB Q4H PRN PRN Reason: SHORT OF BREATH/WHEEZING Last Admin: 11/10/17 08:45 Dose: 1 amp Clonidine (Catapres -) 0.3 mg PO TID [facility] Last Admin: 11/10/17 07:01 Dose: 0.3 mg Collagenase (Santyl -) 1 applic TP DAILY [facility]; Protocol Last Admin: 11/10/17 11:24 Dose: Not Given Hydralazine HCl (Apresoline -) 100 mg PO TID [facility] Last Admin: 11/10/17 07:04 Dose: Not Given Sodium Chloride (Normal Saline -) 250 mls @ 3,000 mls/hr IV PRN PRN PRN Reason: Hypotension during Dialysis Stop: 11/11/17 07:00 Piperacillin Sod/Tazobactam (Sod 2.25 gm/ Dextrose) 50 mls @ 100 mls/hr IVPB Q8H-IV [facility]; Protocol Insulin Aspart (Novolog Vial Sliding Scale -) 1 vial SQ ACHS [facility]; Protocol Last Admin: 11/10/17 07:04 Dose: Not Given Insulin Detemir (Levemir Vial) 10 units SQ 0700,2200 [facility] Labetalol HCl (Normodyne -) 500 mg PO TID [facility] Last Admin: 11/10/17 07:01 Dose: 500 mg Losartan Potassium (Cozaar -) 100 mg PO DAILY [facility] Last Admin: 11/10/17 11:24 Dose: Not Given Methylprednisolone Sodium Succinate (Solu-Medrol -) 40 mg IVPUSH DAILY [facility] Stop: 11/14/17 10:01 Last Admin: 11/10/17 10:23 Dose: 40 mg Nifedipine (Procardia Xl -) 90 mg PO DAILY [facility] Last Admin: 11/10/17 11:24 Dose: Not Given Oxycodone HCl (Roxicodone -) 10 mg PO Q6H PRN PRN Reason: PAIN 6-10; IF TYLENOL NOT WORK Last Admin: 11/10/17 05:09 Dose: 10 mg 37 year old woman with hx of ESRD on HD, DM Type 1 (uncontrolled), Hypertension , Osteomylitis, hx of PE/DVT, Atrial thrombus who presented with lethargy s/p taking too much gabapentin. #ESRD on HD #Lethagry/Weakness #Acute on Chronic Anemia #Metabolic acidosis #Hypertension #DM Type 3 s/p HD today, tolerated it well continue aggressive UF as tolerated, will plan additional HD tomorrow continue MACIE with HD ID follow up received ancef s/p HD today Nathan Vo DO
[2017-11-10] MEDS ORDERED: PIPERACILLIN/TAZOBACTAM 2.25 GM VIAL IVPB ONE (17:24)
[2017-11-10] MEDS: PIPERACILLIN/TAZOB 2.25 GM 2.25 GM in DEXTROSE 5%-WATER - 50 ML IVPB SCH (17:56)
[2017-11-10] MEDS ORDERED: INSULIN (NOVOLOG) ASPART 100 UNITS/ML 10ML VIAL ONE (21:04)
[2017-11-11] MEDS ORDERED: PIPERACILLIN/TAZOBACTAM 2.25 GM VIAL IVPB ONE ×3 (01:44→16:55)
[2017-11-11] MEDS ORDERED: DEXTROSE 5%-WATER - 50 ML IVPB ONE ×3 (01:44→16:55)
[2017-11-11] MEDS: PIPERACILLIN/TAZOB 2.25 GM 2.25 GM in DEXTROSE 5%-WATER - 50 ML IVPB SCH ×3 (01:58→17:14)
[2017-11-11] MEDS: oxyCODONE HCL 5 MG TABLET PO PRN ×4 (01:58→21:59)
[2017-11-11] MEDS: ACETAMINOPHEN 325 MG TABLET (FP) PO PRN ×4 (01:58→22:00)
[2017-11-11] MEDS: INSULIN SLIDING SCALE (NOVOLOG) 1 VIAL SQ SCH ×4 (06:22→22:11)
[2017-11-11] MEDS: INSULIN (LEVEMIR) 100 UNITS/ML UNITS SQ SCH ×2 (06:22→22:10)
[2017-11-11] MEDS: hydrALAZINE HCL 50 MG TABLET (FP) PO SCH ×3 (06:23→21:59)
[2017-11-11] MEDS: LABETALOL HCL 200 MG TABLET (FP) PO SCH ×3 (06:23→21:58)
[2017-11-11] MEDS: cloNIDine HCL 0.1 MG TABLET PO SCH ×3 (06:23→21:57)
[2017-11-11] MEDS ORDERED: INSULIN (LEVEMIR) 100 UNITS/ML UNITS SQ ONE (06:41)
[2017-11-11 07:31] LABS: BASO % 0.5 % (0-2.0); EOS % 0.1 % (0-4.5); HEMATOCRIT 30.2 % (32.4-45.2); HEMOGLOBIN 9.4 GM/dL (10.7-15.3); LYMPH % 5.5 % (8-40); MCH 27.8 pg (25.7-33.7); MCHC 31.1 g/dl (32.0-36.0); MEAN CELL VOLUME 89.3 fl (80-96); MEAN PLT VOLUME 9.6 fl (7.5-11.1); MONO % 13.1 % (3.8-10.2); NEUT % 80.8 % (42.8-82.8); PLATELET COUNT 429 K/MM3 (134-434); RBC 3.38 M/mm3 (3.60-5.2); RDW 16.9 % (11.6-15.6); WHITE BLOOD COUNT 12.7 K/mm3 (4.0-10.0)
[2017-11-11 09:32] LABS: ALBUMIN 2.5 g/dl (3.4-5.0); ANION GAP 15 (8-16); BLOOD UREA NITROGEN 35 mg/dL (7-18); CALCIUM 8.4 mg/dL (8.5-10.1); CHLORIDE 88 mmol/L (98-107); CO2 29 mmol/L (21-32); POTASSIUM 4.5 mmol/L (3.5-5.1); SODIUM 132 mmol/L (136-145)
[2017-11-11] MEDS: COLLAGENASE CLOSTRIDIUM HIST. 30 GRAMS TUBE TP SCH (09:41)
[2017-11-11] MEDS: NIFEdipine E.R. 90 MG TABLET (FP) PO SCH (09:41)
[2017-11-11] MEDS: LOSARTAN POTASSIUM 25 MG TABLET PO SCH (09:41)
[2017-11-11] MEDS: methylPREDNISolone NA SUCC 40 MG/1 ML VIAL IVPUSH SCH (09:41)
--- NOTE | 2017-11-11 09:41 | PN ---
Progress Note (short form) - Note Progress Note: Feels a little better today. The band-like pain around her chest and back still persist, but is better with pain meds. Afebrile today. Cough is better. Intake & Output 11/08/17 11/09/17 11/10/17 11/11/17 23:59 23:59 23:59 23:59 Intake Total 640 650 50 Balance 640 650 50 Weight 148 lb 6.4 oz 153 lb 8 oz Last Vital Signs Temp Pulse Resp BP Pulse Ox 97.8 F 83 20 159/97 98 11/11/17 06:00 11/11/17 06:00 11/11/17 06:00 11/11/17 06:00 11/10/17 21:00 Active Medications Acetaminophen (Tylenol -) 650 mg PO Q6H PRN PRN Reason: PAIN LEVEL 6-10 Last Admin: 11/11/17 07:39 Dose: 650 mg Albuterol Sulfate (Ventolin 0.083% Nebulizer Soln -) 1 amp NEB Q4H PRN PRN Reason: SHORT OF BREATH/WHEEZING Last Admin: 11/10/17 08:45 Dose: 1 amp Clonidine (Catapres -) 0.3 mg PO TID [facility] Last Admin: 11/11/17 06:23 Dose: 0.3 mg Collagenase (Santyl -) 1 applic TP DAILY [facility]; Protocol Last Admin: 11/10/17 11:24 Dose: Not Given Hydralazine HCl (Apresoline -) 100 mg PO TID [facility] Last Admin: 11/11/17 06:23 Dose: 100 mg Piperacillin Sod/Tazobactam (Sod 2.25 gm/ Dextrose) 50 mls @ 100 mls/hr IVPB Q8H-IV [facility]; Protocol Last Admin: 11/11/17 01:58 Dose: 100 mls/hr Sodium Chloride (Normal Saline -) 250 mls @ 3,000 mls/hr IV PRN PRN PRN Reason: Hypotension during Dialysis Stop: 11/11/17 16:53 Insulin Aspart (Novolog Vial Sliding Scale -) 1 vial SQ ACHS [facility]; Protocol Last Admin: 11/11/17 06:22 Dose: 14 units Insulin Detemir (Levemir Vial) 10 units SQ 0700,2200 [facility] Last Admin: 11/11/17 06:22 Dose: 10 unit Labetalol HCl (Normodyne -) 500 mg PO TID [facility] Last Admin: 11/11/17 06:23 Dose: 500 mg Losartan Potassium (Cozaar -) 100 mg PO DAILY [facility] Last Admin: 11/10/17 11:24 Dose: Not Given Methylprednisolone Sodium Succinate (Solu-Medrol -) 40 mg IVPUSH DAILY [facility] Stop: 11/14/17 10:01 Last Admin: 11/10/17 10:23 Dose: 40 mg Nifedipine (Procardia Xl -) 90 mg PO DAILY [facility] Last Admin: 11/10/17 11:24 Dose: Not Given Oxycodone HCl (Roxicodone -) 10 mg PO Q6H PRN PRN Reason: PAIN 6-10; IF TYLENOL NOT WORK Last Admin: 11/11/17 07:39 Dose: 10 mg Constitutional: Yes: No Distress Eyes: Yes: Conjunctiva Clear, EOM Intact HENT: Yes: Atraumatic, Normocephalic Neck: Yes: Supple, Trachea Midline Cardiovascular: Yes: Regular Rate and Rhythm Respiratory: Yes: Cough, Diminished, On Nasal O2, Rhonchi. No: Accessory Muscle Use, Rales, Stridor, Tachypnea, Wheezes ...Inspection: Yes: WNL ...Clubbing: No Gastrointestinal: Yes: Normal Bowel Sounds, Soft Musculoskeletal: Yes: Back Pain Extremities: Yes: WNL Edema: No Peripheral Pulses WNL: Yes Integumentary: Yes: Venous Stasis Changes Neurological: Yes: Alert, Oriented ...Motor Strength: WNL Psychiatric: Yes: WNL, Alert, Oriented Labs: Laboratory Results - last 24 hr 11/10/17 11/10/17 11/10/17 09:17 10:05 11:00 WBC 12.5 H RBC 3.02 L Hgb 8.5 L Hct 25.9 L MCV 85.8 MCH 28.3 MCHC 33.0 RDW 16.2 H Plt Count 368 MPV 8.9 Absolute Neuts (auto) 9.3 Neutrophils % 74.5 Lymphocytes % 5.9 L Monocytes % 18.2 H Eosinophils % 0.5 Basophils % 0.9 Nucleated RBC % 0 Sodium Potassium Chloride Carbon Dioxide Anion Gap BUN Creatinine Creat Clearance w eGFR POC Glucometer 40 120 Random Glucose Calcium Phosphorus Total Bilirubin AST ALT Alkaline Phosphatase Total Protein Albumin 11/10/17 11/10/17 11/10/17 11:00 11:00 16:09 WBC RBC Hgb Hct MCV MCH MCHC RDW Plt Count MPV Absolute Neuts (auto) Neutrophils % Lymphocytes % Monocytes % Eosinophils % Basophils % Nucleated RBC % Sodium 138 Potassium 4.2 Chloride 97 L Carbon Dioxide 25 Anion Gap 16 BUN 45 H Creatinine 5.7 H Creat Clearance w eGFR 8.86 POC Glucometer 285 Random Glucose 104 Calcium 8.0 L Phosphorus 5.8 H Cancelled Total Bilirubin 1.2 H AST 31 ALT 7 L Alkaline Phosphatase 1355 H D Total Protein 7.0 Albumin 2.6 L 11/10/17 11/11/17 11/11/17 22:42 06:32 06:32 WBC 12.7 H RBC 3.38 L Hgb 9.4 L Hct 30.2 L D MCV 89.3 MCH 27.8 MCHC 31.1 L RDW 16.9 H Plt Count 429 MPV 9.6 Absolute Neuts (auto) 10.2 Neutrophils % 80.8 Lymphocytes % 5.5 L Monocytes % 13.1 H Eosinophils % 0.1 Basophils % 0.5 Nucleated RBC % 0 Sodium 132 L Potassium 4.5 Chloride 88 L Carbon Dioxide 29 Anion Gap 15 BUN 35 H Creatinine Creat Clearance w eGFR POC Glucometer 494 Random Glucose Calcium 8.4 L Phosphorus Total Bilirubin AST ALT Alkaline Phosphatase Total Protein Albumin 2.5 L Problem List - Problems (1) Atelectasis of right lung Code(s): J98.11 - ATELECTASIS (2) Pneumonia Code(s): J18.9 - PNEUMONIA, UNSPECIFIED ORGANISM (3) Chronic GERD Code(s): K21.9 - GASTRO-ESOPHAGEAL REFLUX DISEASE WITHOUT ESOPHAGITIS (4) Diabetes mellitus, insulin dependent (IDDM), uncontrolled Code(s): E10.65 - TYPE 1 DIABETES MELLITUS WITH HYPERGLYCEMIA (5) ESRD (end stage renal disease) on dialysis Code(s): N18.6 - END STAGE RENAL DISEASE; Z99.2 - DEPENDENCE ON RENAL DIALYSIS (6) Gastroparesis Code(s): K31.84 - GASTROPARESIS (7) HTN (hypertension) Code(s): I10 - ESSENTIAL (PRIMARY) HYPERTENSION Assessment/Plan IMP: Suspected RLL PNA +/- component of atelectasis PLAN: ABX per ID: on Zosyn Follow sputum O2 as needed Daily Medrol x 5 days BD TX PRN HD per Renal Incentive Spirometry Dr Ballesteros Problem List - Problems (1) Atelectasis of right lung Code(s): J98.11 - ATELECTASIS (2) Pneumonia Code(s): J18.9 - PNEUMONIA, UNSPECIFIED ORGANISM (3) Chronic GERD Code(s): K21.9 - GASTRO-ESOPHAGEAL REFLUX DISEASE WITHOUT ESOPHAGITIS (4) Diabetes mellitus, insulin dependent (IDDM), uncontrolled Code(s): E10.65 - TYPE 1 DIABETES MELLITUS WITH HYPERGLYCEMIA (5) ESRD (end stage renal disease) on dialysis Code(s): N18.6 - END STAGE RENAL DISEASE; Z99.2 - DEPENDENCE ON RENAL DIALYSIS (6) Gastroparesis Code(s): K31.84 - GASTROPARESIS (7) HTN (hypertension) Code(s): I10 - ESSENTIAL (PRIMARY) HYPERTENSION
[2017-11-11 09:59] LABS: BILIRUBIN,TOTAL 0.8 mg/dL (0.2-1.0); CREATININE 3.8 mg/dL (0.55-1.02); SGOT/AST 17 U/L (15-37); SGPT/ALT 8 U/L (12-78)
[2017-11-11 10:03] LABS: ALK PHOS 1269 U/L (45-117)
[2017-11-11 10:05] LABS: GLUCOSE,RANDOM 675 mg/dL (74-106)
--- NOTE | 2017-11-11 13:40 | PN ---
Progress Note, Physician History of Present Illness: patient starting to look better says she is breathing better - Current Medication List Current Medications: Active Medications Acetaminophen (Tylenol -) 650 mg PO Q6H PRN PRN Reason: PAIN LEVEL 6-10 Last Admin: 11/11/17 07:39 Dose: 650 mg Albuterol Sulfate (Ventolin 0.083% Nebulizer Soln -) 1 amp NEB Q4H PRN PRN Reason: SHORT OF BREATH/WHEEZING Last Admin: 11/10/17 08:45 Dose: 1 amp Clonidine (Catapres -) 0.3 mg PO TID [facility] Last Admin: 11/11/17 06:23 Dose: 0.3 mg Collagenase (Santyl -) 1 applic TP DAILY [facility]; Protocol Last Admin: 11/11/17 09:41 Dose: 1 appful Hydralazine HCl (Apresoline -) 100 mg PO TID [facility] Last Admin: 11/11/17 06:23 Dose: 100 mg Piperacillin Sod/Tazobactam (Sod 2.25 gm/ Dextrose) 50 mls @ 100 mls/hr IVPB Q8H-IV [facility]; Protocol Last Admin: 11/11/17 09:40 Dose: 100 mls/hr Sodium Chloride (Normal Saline -) 250 mls @ 3,000 mls/hr IV PRN PRN PRN Reason: Hypotension during Dialysis Stop: 11/11/17 16:53 Insulin Aspart (Novolog Vial Sliding Scale -) 1 vial SQ ACHS [facility]; Protocol Last Admin: 11/11/17 06:22 Dose: 14 units Insulin Detemir (Levemir Vial) 10 units SQ 0700,2200 [facility] Last Admin: 11/11/17 06:22 Dose: 10 unit Labetalol HCl (Normodyne -) 500 mg PO TID [facility] Last Admin: 11/11/17 06:23 Dose: 500 mg Losartan Potassium (Cozaar -) 100 mg PO DAILY [facility] Last Admin: 11/11/17 09:41 Dose: 100 mg Methylprednisolone Sodium Succinate (Solu-Medrol -) 40 mg IVPUSH DAILY [facility] Stop: 11/14/17 10:01 Last Admin: 11/11/17 09:41 Dose: 40 mg Nifedipine (Procardia Xl -) 90 mg PO DAILY [facility] Last Admin: 11/11/17 09:41 Dose: 90 mg Oxycodone HCl (Roxicodone -) 10 mg PO Q6H PRN PRN Reason: PAIN 6-10; IF TYLENOL NOT WORK Last Admin: 11/11/17 07:39 Dose: 10 mg - Objective Vital Signs: Vital Signs Temperature 98.5 F 11/11/17 10:00 Pulse Rate 77 11/11/17 11:55 Respiratory Rate 18 11/11/17 11:55 Blood Pressure 167/103 11/11/17 11:55 O2 Sat by Pulse Oximetry (%) 97 11/11/17 09:00 Constitutional: Yes: No Distress, Calm Cardiovascular: Yes: Regular Rate and Rhythm Respiratory: Yes: Regular, CTA Bilaterally, On Nasal O2 Gastrointestinal: Yes: Normal Bowel Sounds, Soft Musculoskeletal: Yes: WNL Extremities: Yes: WNL Neurological: Yes: Alert, Oriented Psychiatric: Yes: Alert, Oriented Labs: CBC, BMP 11/11/17 06:32 11/11/17 06:32 INR, PTT INR 1.34 (0.83-1.09) H 11/07/17 06:25 Assessment/Plan Problem List - Problems (1) Atelectasis of right lung Code(s): J98.11 - ATELECTASIS (2) Pneumonia Code(s): J18.9 - PNEUMONIA, UNSPECIFIED ORGANISM (3) Chronic GERD Code(s): K21.9 - GASTRO-ESOPHAGEAL REFLUX DISEASE WITHOUT ESOPHAGITIS (4) Diabetes mellitus, insulin dependent (IDDM), uncontrolled Code(s): E10.65 - TYPE 1 DIABETES MELLITUS WITH HYPERGLYCEMIA (5) ESRD (end stage renal disease) on dialysis Code(s): N18.6 - END STAGE RENAL DISEASE; Z99.2 - DEPENDENCE ON RENAL DIALYSIS (6) Gastroparesis Code(s): K31.84 - GASTROPARESIS (7) HTN (hypertension) Code(s): I10 - ESSENTIAL (PRIMARY) HYPERTENSION plan continue abx dialysis close watch patient very immunocompromised rest as per the team
--- NOTE | 2017-11-11 15:12 | PN ---
Progress Note (short form) - Note Progress Note: Renal follow up for ESRD on HD Pt seen and examined during isolated UF BP stable, goal UF is 2.5L no acute complaints access working well Vital Signs Temperature 98.5 F 11/11/17 10:00 Pulse Rate 78 11/11/17 13:50 Respiratory Rate 18 11/11/17 13:50 Blood Pressure 160/98 11/11/17 13:50 O2 Sat by Pulse Oximetry (%) 97 11/11/17 09:00 Intake & Output 11/08/17 11/09/17 11/10/17 11/11/17 23:59 23:59 23:59 23:59 Intake Total 640 650 50 Balance 640 650 50 Weight 67.313 kg 69.626 kg NAD awake and alert RRR, No M/R CTA soft NT/ND + edmea in Le CBC, BMP 11/11/17 06:32 11/11/17 06:32 Current Medications Acetaminophen (Tylenol -) 650 mg PO Q6H PRN PRN Reason: PAIN LEVEL 6-10 Last Admin: 11/11/17 14:09 Dose: 650 mg Albuterol Sulfate (Ventolin 0.083% Nebulizer Soln -) 1 amp NEB Q4H PRN PRN Reason: SHORT OF BREATH/WHEEZING Last Admin: 11/10/17 08:45 Dose: 1 amp Clonidine (Catapres -) 0.3 mg PO TID [facility] Last Admin: 11/11/17 14:08 Dose: 0.3 mg Collagenase (Santyl -) 1 applic TP DAILY [facility]; Protocol Last Admin: 11/11/17 09:41 Dose: 1 appful Hydralazine HCl (Apresoline -) 100 mg PO TID [facility] Last Admin: 11/11/17 14:08 Dose: 100 mg Piperacillin Sod/Tazobactam (Sod 2.25 gm/ Dextrose) 50 mls @ 100 mls/hr IVPB Q8H-IV [facility]; Protocol Last Admin: 11/11/17 09:40 Dose: 100 mls/hr Sodium Chloride (Normal Saline -) 250 mls @ 3,000 mls/hr IV PRN PRN PRN Reason: Hypotension during Dialysis Stop: 11/11/17 16:53 Insulin Aspart (Novolog Vial Sliding Scale -) 1 vial SQ ACHS [facility]; Protocol Last Admin: 11/11/17 14:21 Dose: 14 units Insulin Detemir (Levemir Vial) 10 units SQ 0700,2200 [facility] Last Admin: 11/11/17 06:22 Dose: 10 unit Labetalol HCl (Normodyne -) 500 mg PO TID [facility] Last Admin: 11/11/17 14:09 Dose: 500 mg Losartan Potassium (Cozaar -) 100 mg PO DAILY [facility] Last Admin: 11/11/17 09:41 Dose: 100 mg Methylprednisolone Sodium Succinate (Solu-Medrol -) 40 mg IVPUSH DAILY [facility] Stop: 11/14/17 10:01 Last Admin: 11/11/17 09:41 Dose: 40 mg Nifedipine (Procardia Xl -) 90 mg PO DAILY [facility] Last Admin: 11/11/17 09:41 Dose: 90 mg Oxycodone HCl (Roxicodone -) 10 mg PO Q6H PRN PRN Reason: PAIN 6-10; IF TYLENOL NOT WORK Last Admin: 11/11/17 14:08 Dose: 10 mg 37 year old woman with hx of ESRD on HD, DM Type 1 (uncontrolled), Hypertension , Osteomylitis, hx of PE/DVT, Atrial thrombus who presented with lethargy s/p taking too much gabapentin. #ESRD on HD #Lethargy/Weakness #Acute on Chronic Anemia #Metabolic acidosis #Hypertension #DM Type 3 tolerating UF well today next HD tomorrow with UF as tolerated will continue Ancef with HD ID following continue MACIE with HD Continue current antihypertensive meds Nathan Vo DO
--- NOTE | 2017-11-11 16:10 | PN ---
Physical Exam: SUBJECTIVE: Patient seen and examined. Pt seen after HD, no issues. C/o pain all over, fatigue, hunger. OBJECTIVE: Vital Signs Period Temp Pulse Resp BP Sys/Ames Pulse Ox Last 24 Hr 97.8 F-99 F 74-94 18-22 147-167/83-111 97-98 PE Neuro: alert, awake, cn 2-12intact Pulm: right base diminished, rhonchi CV: s1 s2 rrr Abd: s nt nd +bs Ext: LUE AVF, lower ext non pitting edema Laboratory Results - last 24 hr 11/10/17 11/11/17 11/11/17 22:42 06:20 06:32 WBC 12.7 H RBC 3.38 L Hgb 9.4 L Hct 30.2 L D MCV 89.3 MCH 27.8 MCHC 31.1 L RDW 16.9 H Plt Count 429 MPV 9.6 Absolute Neuts (auto) 10.2 Neutrophils % 80.8 Lymphocytes % 5.5 L Monocytes % 13.1 H Eosinophils % 0.1 Basophils % 0.5 Nucleated RBC % 0 Sodium Potassium Chloride Carbon Dioxide Anion Gap BUN Creatinine Creat Clearance w eGFR POC Glucometer 494 > 600 Random Glucose Calcium Total Bilirubin AST ALT Alkaline Phosphatase Total Protein Albumin Blood Type Antibody Screen Crossmatch 11/11/17 06:32 WBC RBC Hgb Hct MCV MCH MCHC RDW Plt Count MPV Absolute Neuts (auto) Neutrophils % Lymphocytes % Monocytes % Eosinophils % Basophils % Nucleated RBC % Sodium 132 L Potassium 4.5 Chloride 88 L Carbon Dioxide 29 Anion Gap 15 BUN 35 H Creatinine 3.8 H Creat Clearance w eGFR 14.14 POC Glucometer Random Glucose 675 H* Calcium 8.4 L Total Bilirubin 0.8 AST 17 ALT 8 L Alkaline Phosphatase 1269 H D Total Protein 7.0 Albumin 2.5 L Blood Type Antibody Screen Crossmatch Active Medications Generic Name Dose Route Start Last Admin Trade Name Freq PRN Reason Stop Dose Admin Acetaminophen 650 mg 11/07/17 20:47 11/11/17 14:09 Tylenol - PO 650 mg Q6H PRN Administration PAIN LEVEL 6-10 Albuterol Sulfate 1 amp 11/10/17 07:24 11/10/17 08:45 Ventolin 0.083% Nebulizer Soln - NEB 1 amp Q4H PRN Administration SHORT OF BREATH/WHEEZING Clonidine 0.3 mg 08/05/18 14:00 11/11/17 14:08 Catapres - PO 0.3 mg TID [facility] Administration Collagenase 1 applic 11/08/17 10:00 11/11/17 09:41 Santyl - TP 1 appful DAILY [facility] Administration Protocol Epoetin Abiel 20,000 unit 11/12/17 06:00 Epogen - IVPUSH 11/12/17 06:01 ONCE ONE Hydralazine HCl 100 mg 11/07/17 14:00 11/11/17 14:08 Apresoline - PO 100 mg TID [facility] Administration Piperacillin Sod/Tazobactam 50 mls @ 100 mls/hr 11/10/17 18:00 11/11/17 09:40 Sod 2.25 gm/ Dextrose IVPB 100 mls/hr Q8H-IV [facility] Administration Protocol Sodium Chloride 250 mls @ 3,000 mls/hr 11/11/17 15:12 Normal Saline - IV 11/12/17 15:12 PRN PRN Hypotension during Dialysis Cefazolin Sodium 3 gm/ 100 mls @ 100 mls/hr 11/12/17 08:00 Dextrose IVPB 11/12/17 08:59 ONCE ONE Insulin Aspart 1 vial 11/07/17 16:30 11/11/17 14:21 Novolog Vial Sliding Scale - SQ 14 units ACHS [facility] Administration Protocol Insulin Detemir 10 units 11/10/17 08:56 11/11/17 06:22 Levemir Vial SQ 10 unit 0700,2200 [facility] Administration Labetalol HCl 500 mg 11/07/17 14:00 11/11/17 14:09 Normodyne - PO 500 mg TID [facility] Administration Losartan Potassium 100 mg 11/08/17 10:00 11/11/17 09:41 Cozaar - PO 100 mg DAILY [facility] Administration Methylprednisolone Sodium Succinate 40 mg 11/10/17 10:00 11/11/17 09:41 Solu-Medrol - IVPUSH 11/14/17 10:01 40 mg DAILY [facility] Administration Nifedipine 90 mg 11/08/17 10:00 11/11/17 09:41 Procardia Xl - PO 90 mg DAILY [facility] Administration Oxycodone HCl 10 mg 11/08/17 18:07 11/11/17 14:08 Roxicodone - PO 10 mg Q6H PRN Administration PAIN 6-10; IF TYLENOL NOT WORK Microbiology 11/10/17 11:00 Blood Culture - Preliminary Blood - Peripheral Venous NO GROWTH OBTAINED AFTER 24 HOURS, INCUBATION TO CONTINUE FOR 4 DAYS. 11/10/17 11:00 Blood Culture - Preliminary Blood - Peripheral Venous NO GROWTH OBTAINED AFTER 24 HOURS, INCUBATION TO CONTINUE FOR 4 DAYS. 11/07/17 06:30 Blood Culture - Preliminary Blood - Peripheral Venous NO GROWTH OBTAINED AFTER 96 HOURS, INCUBATION TO CONTINUE FOR 1 DAYS. 11/07/17 06:30 Blood Culture - Preliminary Blood - Peripheral Venous NO GROWTH OBTAINED AFTER 96 HOURS, INCUBATION TO CONTINUE FOR 1 DAYS. Assessment: 27 year old female with PMHx of ESRD on HD (secondary to DM), IDDM, Hypertension, PVD, Atrial thrombus recently discharged after hospitalization for AMS/Unresponsiveness at home with cardiac arrest requiring CPR in the field , admitted with shortness of breath and dizziness. Plan: 1. Dizziness - Resolved 2. Anemia of chronic disease - Hgb stable - S/p 2u PRBC on 11/08/17 3. Leukocytosis - Afebrile - Continue zosyn per ID 4. ESRD on HD T S - HD today, well tolerated - Epo w HD 5. HTN - Continue home meds 6. DM - BGM ACHS - ISS ACHS - Hyperglycemic this AM, will increase levemir 15 units BID Problem List - Problems (1) Dizziness Code(s): R42 - DIZZINESS AND GIDDINESS Visit type - Emergency Visit Emergency Visit: Yes ED Registration Date: 11/07/17 Care time: The patient presented to the Emergency Department on the above date and was hospitalized for further evaluation of their emergent condition. - New Patient This patient is new to me today: No - Critical Care Critical Care patient: No
--- NOTE | 2017-11-11 17:22 | PN ---
Progress Note (short form) - Note Progress Note: The patient was seen briefly as her energy level was very low after having had dialysis. Her chest pain was at a 2 but her back pain was at a 5. She was very drowsy and was not up for an intervention. Problem List - Problems (1) Anxiety about health Code(s): F41.8 - OTHER SPECIFIED ANXIETY DISORDERS
[2017-11-12] MEDS ORDERED: PIPERACILLIN/TAZOBACTAM 2.25 GM VIAL IVPB ONE ×2 (01:39→10:02)
[2017-11-12] MEDS ORDERED: DEXTROSE 5%-WATER - 50 ML IVPB ONE ×2 (01:40→10:03)
[2017-11-12] MEDS: PIPERACILLIN/TAZOB 2.25 GM 2.25 GM in DEXTROSE 5%-WATER - 50 ML IVPB SCH ×3 (01:59→17:43)
[2017-11-12] MEDS: oxyCODONE HCL 5 MG TABLET PO PRN ×3 (03:54→18:03)
[2017-11-12] MEDS: ACETAMINOPHEN 325 MG TABLET (FP) PO PRN ×3 (03:55→18:03)
[2017-11-12] MEDS: LABETALOL HCL 200 MG TABLET (FP) PO SCH ×3 (06:24→18:04)
[2017-11-12] MEDS: cloNIDine HCL 0.1 MG TABLET PO SCH ×3 (06:25→18:05)
[2017-11-12] MEDS: hydrALAZINE HCL 50 MG TABLET (FP) PO SCH ×3 (06:25→18:06)
[2017-11-12] MEDS: INSULIN (LEVEMIR) 100 UNITS/ML UNITS SQ SCH (06:29)
[2017-11-12] MEDS: INSULIN SLIDING SCALE (NOVOLOG) 1 VIAL SQ SCH ×3 (06:29→17:43)
[2017-11-12] MEDS ORDERED: INSULIN (NOVOLOG) ASPART 100 UNITS/ML 10ML VIAL ONE (06:46)
[2017-11-12] MEDS: ALBUTEROL SO4 0.083% IH SOL 2.5 MG/3 ML VIAL.NEB. NEB PRN ×2 (07:20→11:21)
--- NOTE | 2017-11-12 09:17 | PN ---
Physical Exam: SUBJECTIVE: Patient seen and examined. She is displeased about being on steroids bc her sugar is too high and wants them stopped. She reports feeling "something" moving around under her right ribs. OBJECTIVE: Vital Signs Period Temp Pulse Resp BP Sys/Ames Pulse Ox Last 24 Hr 97.7 F-98.5 F 74-84 18-22 134-167/80-111 97 PE Neuro: alert, awake, cn 2-12intact Pulm: bases clear today, right base improved, rhonchi CV: s1 s2 rrr Abd: s nt nd +bs Ext: LUE AVF, lower ext non pitting edema Laboratory Results - last 24 hr 11/07/17 11/10/17 11/11/17 06:25 21:11 06:20 Sodium Potassium Chloride Carbon Dioxide Anion Gap BUN Creatinine Creat Clearance w eGFR POC Glucometer 456 > 600 Random Glucose Calcium Total Bilirubin AST ALT Alkaline Phosphatase Total Protein Albumin Blood Type B POSITIVE Antibody Screen Negative Crossmatch See Detail 11/11/17 11/12/17 06:32 06:27 Sodium 132 L Potassium 4.5 Chloride 88 L Carbon Dioxide 29 Anion Gap 15 BUN 35 H Creatinine 3.8 H Creat Clearance w eGFR 14.14 POC Glucometer 504 Random Glucose 675 H* Calcium 8.4 L Total Bilirubin 0.8 AST 17 ALT 8 L Alkaline Phosphatase 1269 H D Total Protein 7.0 Albumin 2.5 L Blood Type Antibody Screen Crossmatch Active Medications Generic Name Dose Route Start Last Admin Trade Name Freq PRN Reason Stop Dose Admin Acetaminophen 650 mg 11/07/17 20:47 11/12/17 03:55 Tylenol - PO 650 mg Q6H PRN Administration PAIN LEVEL 6-10 Albuterol Sulfate 1 amp 11/10/17 07:24 11/12/17 07:20 Ventolin 0.083% Nebulizer Soln - NEB 1 amp Q4H PRN Administration SHORT OF BREATH/WHEEZING Clonidine 0.3 mg 11/07/17 14:00 11/12/17 06:25 Catapres - PO 0.3 mg TID [facility] Administration Collagenase 1 applic 11/08/17 10:00 11/11/17 09:41 Santyl - TP 1 appful DAILY [facility] Administration Protocol Epoetin Abiel 20,000 unit 11/12/17 06:00 Epogen - IVPUSH 11/12/17 06:01 ONCE ONE Hydralazine HCl 100 mg 11/07/17 14:00 11/12/17 06:25 Apresoline - PO 100 mg TID [facility] Administration Piperacillin Sod/Tazobactam 50 mls @ 100 mls/hr 11/10/17 18:00 11/12/17 01:59 Sod 2.25 gm/ Dextrose IVPB 100 mls/hr Q8H-IV [facility] Administration Protocol Sodium Chloride 250 mls @ 3,000 mls/hr 11/11/17 15:12 Normal Saline - IV 11/12/17 15:12 PRN PRN Hypotension during Dialysis Insulin Aspart 1 vial 11/07/17 16:30 11/12/17 06:29 Novolog Vial Sliding Scale - SQ 14 units ACHS [facility] Administration Protocol Insulin Detemir 15 units 11/11/17 22:00 11/12/17 06:29 Levemir Vial SQ 15 units 0700,2200 [facility] Administration Labetalol HCl 500 mg 11/07/17 14:00 11/12/17 06:24 Normodyne - PO 500 mg TID [facility] Administration Losartan Potassium 100 mg 11/08/17 10:00 11/11/17 09:41 Cozaar - PO 100 mg DAILY [facility] Administration Nifedipine 90 mg 11/08/17 10:00 11/11/17 09:41 Procardia Xl - PO 90 mg DAILY [facility] Administration Oxycodone HCl 10 mg 11/08/17 18:07 11/12/17 03:54 Roxicodone - PO 10 mg Q6H PRN Administration PAIN 6-10; IF TYLENOL NOT WORK Assessment: 27 year old female with PMHx of ESRD on HD (secondary to DM), IDDM, Hypertension, PVD, Atrial thrombus recently discharged after hospitalization for AMS/Unresponsiveness at home with cardiac arrest requiring CPR in the field , admitted with shortness of breath and dizziness. Plan: 1. Dizziness - Resolved 2. Anemia of chronic disease - Hgb stable - S/p 2u PRBC on 11/08/17 3. PNA - Continue zosyn per ID - Will stop steroids 4. ESRD on HD S - HD Wednesday - Epo w HD 5. HTN - Continue home meds 6. DM II - BGM ACHS - ISS ACHS - Levemir 15 units BID 7. DVT - Heparin sq Problem List - Problems (1) Dizziness Code(s): R42 - DIZZINESS AND GIDDINESS Visit type - Emergency Visit Emergency Visit: Yes ED Registration Date: 11/07/17 Care time: The patient presented to the Emergency Department on the above date and was hospitalized for further evaluation of their emergent condition. - New Patient This patient is new to me today: No - Critical Care Critical Care patient: No
--- NOTE | 2017-11-12 09:25 | PN ---
Progress Note (short form) - Note Progress Note: The band-like pain around her chest and back still persist, but is better with pain meds. Remains afebrile. Cough is better. Intake & Output 11/09/17 11/10/17 11/11/17 11/12/17 23:59 23:59 23:59 23:59 Intake Total 650 50 550 50 Balance 650 50 550 50 Weight 148 lb 6.4 oz 153 lb 8 oz Last Vital Signs Temp Pulse Resp BP Pulse Ox 97.9 F 79 20 147/80 97 11/12/17 06:00 11/12/17 06:00 11/12/17 06:00 11/12/17 06:00 11/11/17 21:00 Active Medications Acetaminophen (Tylenol -) 650 mg PO Q6H PRN PRN Reason: PAIN LEVEL 6-10 Last Admin: 11/12/17 03:55 Dose: 650 mg Albuterol Sulfate (Ventolin 0.083% Nebulizer Soln -) 1 amp NEB Q4H PRN PRN Reason: SHORT OF BREATH/WHEEZING Last Admin: 11/12/17 07:20 Dose: 1 amp Clonidine (Catapres -) 0.3 mg PO TID [facility] Last Admin: 11/12/17 06:25 Dose: 0.3 mg Collagenase (Santyl -) 1 applic TP DAILY [facility]; Protocol Last Admin: 11/11/17 09:41 Dose: 1 appful Epoetin Abiel (Epogen -) 20,000 unit IVPUSH ONCE ONE Stop: 11/12/17 06:01 Heparin Sodium (Porcine) (Heparin -) 5,000 unit SQ TID [facility] Hydralazine HCl (Apresoline -) 100 mg PO TID [facility] Last Admin: 11/12/17 06:25 Dose: 100 mg Piperacillin Sod/Tazobactam (Sod 2.25 gm/ Dextrose) 50 mls @ 100 mls/hr IVPB Q8H-IV [facility]; Protocol Last Admin: 11/12/17 01:59 Dose: 100 mls/hr Sodium Chloride (Normal Saline -) 250 mls @ 3,000 mls/hr IV PRN PRN PRN Reason: Hypotension during Dialysis Stop: 11/12/17 15:12 Insulin Aspart (Novolog Vial Sliding Scale -) 1 vial SQ ACHS [facility]; Protocol Last Admin: 11/12/17 06:29 Dose: 14 units Insulin Detemir (Levemir Vial) 15 units SQ 0700,2200 [facility] Last Admin: 11/12/17 06:29 Dose: 15 units Labetalol HCl (Normodyne -) 500 mg PO TID [facility] Last Admin: 11/12/17 06:24 Dose: 500 mg Losartan Potassium (Cozaar -) 100 mg PO DAILY [facility] Last Admin: 11/11/17 09:41 Dose: 100 mg Nifedipine (Procardia Xl -) 90 mg PO DAILY [facility] Last Admin: 11/11/17 09:41 Dose: 90 mg Oxycodone HCl (Roxicodone -) 10 mg PO Q6H PRN PRN Reason: PAIN 6-10; IF TYLENOL NOT WORK Last Admin: 11/12/17 03:54 Dose: 10 mg Constitutional: Yes: No Distress Eyes: Yes: Conjunctiva Clear, EOM Intact HENT: Yes: Atraumatic, Normocephalic Neck: Yes: Supple, Trachea Midline Cardiovascular: Yes: Regular Rate and Rhythm Respiratory: Yes: Cough, Diminished, On Nasal O2, Rhonchi. No: Accessory Muscle Use, Rales, Stridor, Tachypnea, Wheezes ...Inspection: Yes: WNL ...Clubbing: No Gastrointestinal: Yes: Normal Bowel Sounds, Soft Musculoskeletal: Yes: Back Pain Extremities: Yes: WNL Edema: No Peripheral Pulses WNL: Yes Integumentary: Yes: Venous Stasis Changes Neurological: Yes: Alert, Oriented ...Motor Strength: WNL Psychiatric: Yes: WNL, Alert, Oriented Labs: Laboratory Results - last 24 hr 11/07/17 11/10/17 11/11/17 06:25 21:11 06:20 Sodium Potassium Chloride Carbon Dioxide Anion Gap BUN Creatinine Creat Clearance w eGFR POC Glucometer 456 > 600 Random Glucose Calcium Total Bilirubin AST ALT Alkaline Phosphatase Total Protein Albumin Blood Type B POSITIVE Antibody Screen Negative Crossmatch See Detail 11/11/17 11/12/17 06:32 06:27 Sodium 132 L Potassium 4.5 Chloride 88 L Carbon Dioxide 29 Anion Gap 15 BUN 35 H Creatinine 3.8 H Creat Clearance w eGFR 14.14 POC Glucometer 504 Random Glucose 675 H* Calcium 8.4 L Total Bilirubin 0.8 AST 17 ALT 8 L Alkaline Phosphatase 1269 H D Total Protein 7.0 Albumin 2.5 L Blood Type Antibody Screen Crossmatch Problem List - Problems (1) Atelectasis of right lung Code(s): J98.11 - ATELECTASIS (2) Pneumonia Code(s): J18.9 - PNEUMONIA, UNSPECIFIED ORGANISM (3) Chronic GERD Code(s): K21.9 - GASTRO-ESOPHAGEAL REFLUX DISEASE WITHOUT ESOPHAGITIS (4) Diabetes mellitus, insulin dependent (IDDM), uncontrolled Code(s): E10.65 - TYPE 1 DIABETES MELLITUS WITH HYPERGLYCEMIA (5) ESRD (end stage renal disease) on dialysis Code(s): N18.6 - END STAGE RENAL DISEASE; Z99.2 - DEPENDENCE ON RENAL DIALYSIS (6) Gastroparesis Code(s): K31.84 - GASTROPARESIS (7) HTN (hypertension) Code(s): I10 - ESSENTIAL (PRIMARY) HYPERTENSION Assessment/Plan IMP: Suspected RLL PNA +/- component of atelectasis PLAN: ABX per ID: on Zosyn: consider change to oral therapy O2 as needed D/C Medrol due to hyperglycemia: No further steroids BD TX PRN HD per Renal Incentive Spirometry No Pulmonary contraindication for D/C Dr Ballesteros Problem List - Problems (1) Atelectasis of right lung Code(s): J98.11 - ATELECTASIS (2) Pneumonia Code(s): J18.9 - PNEUMONIA, UNSPECIFIED ORGANISM (3) Chronic GERD Code(s): K21.9 - GASTRO-ESOPHAGEAL REFLUX DISEASE WITHOUT ESOPHAGITIS (4) Diabetes mellitus, insulin dependent (IDDM), uncontrolled Code(s): E10.65 - TYPE 1 DIABETES MELLITUS WITH HYPERGLYCEMIA (5) ESRD (end stage renal disease) on dialysis Code(s): N18.6 - END STAGE RENAL DISEASE; Z99.2 - DEPENDENCE ON RENAL DIALYSIS (6) Gastroparesis Code(s): K31.84 - GASTROPARESIS (7) HTN (hypertension) Code(s): I10 - ESSENTIAL (PRIMARY) HYPERTENSION
[2017-11-12] MEDS: LOSARTAN POTASSIUM 25 MG TABLET PO SCH (10:07)
[2017-11-12] MEDS: NIFEdipine E.R. 90 MG TABLET (FP) PO SCH ×2 (10:08→10:38)
--- NOTE | 2017-11-12 10:59 | PN ---
Progress Note, Physician History of Present Illness: patient stable generalized body pain breathing better - Current Medication List Current Medications: Active Medications Acetaminophen (Tylenol -) 650 mg PO Q6H PRN PRN Reason: PAIN LEVEL 6-10 Last Admin: 11/12/17 10:07 Dose: 650 mg Albuterol Sulfate (Ventolin 0.083% Nebulizer Soln -) 1 amp NEB Q4H PRN PRN Reason: SHORT OF BREATH/WHEEZING Last Admin: 11/12/17 07:20 Dose: 1 amp Clonidine (Catapres -) 0.3 mg PO TID [facility] Last Admin: 11/12/17 06:25 Dose: 0.3 mg Collagenase (Santyl -) 1 applic TP DAILY [facility]; Protocol Last Admin: 11/11/17 09:41 Dose: 1 appful Epoetin Abiel (Procrit -) 20,000 unit IVPUSH ONCE ONE Stop: 11/12/17 11:01 Heparin Sodium (Porcine) (Heparin -) 5,000 unit SQ TID [facility] Hydralazine HCl (Apresoline -) 100 mg PO TID [facility] Last Admin: 11/12/17 06:25 Dose: 100 mg Piperacillin Sod/Tazobactam (Sod 2.25 gm/ Dextrose) 50 mls @ 100 mls/hr IVPB Q8H-IV [facility]; Protocol Last Admin: 11/12/17 10:08 Dose: 100 mls/hr Sodium Chloride (Normal Saline -) 250 mls @ 3,000 mls/hr IV PRN PRN PRN Reason: Hypotension during Dialysis Stop: 11/12/17 11:01 Insulin Aspart (Novolog Vial Sliding Scale -) 1 vial SQ ACHS [facility]; Protocol Last Admin: 11/12/17 06:29 Dose: 14 units Insulin Detemir (Levemir Vial) 15 units SQ 0700,2200 [facility] Last Admin: 11/12/17 06:29 Dose: 15 units Labetalol HCl (Normodyne -) 500 mg PO TID [facility] Last Admin: 11/12/17 06:24 Dose: 500 mg Losartan Potassium (Cozaar -) 100 mg PO DAILY [facility] Last Admin: 11/12/17 10:07 Dose: 100 mg Nifedipine (Procardia Xl -) 90 mg PO DAILY [facility] Last Admin: 11/12/17 10:38 Dose: Not Given Oxycodone HCl (Roxicodone -) 10 mg PO Q6H PRN PRN Reason: PAIN 6-10; IF TYLENOL NOT WORK Last Admin: 11/12/17 10:06 Dose: 10 mg - Objective Vital Signs: Vital Signs Temperature 97.9 F 11/12/17 06:00 Pulse Rate 84 11/12/17 10:38 Respiratory Rate 20 11/12/17 06:00 Blood Pressure 152/91 11/12/17 10:38 O2 Sat by Pulse Oximetry (%) 97 11/11/17 21:00 Constitutional: Yes: Calm, Mild Distress Cardiovascular: Yes: Regular Rate and Rhythm Respiratory: Yes: Regular, CTA Bilaterally Gastrointestinal: Yes: Normal Bowel Sounds, Soft Musculoskeletal: Yes: WNL Extremities: Yes: WNL Neurological: Yes: Alert, Oriented Psychiatric: Yes: Alert Labs: CBC, BMP 11/11/17 06:32 11/11/17 06:32 INR, PTT INR 1.34 (0.83-1.09) H 11/07/17 06:25 Assessment/Plan Problem List - Problems (1) Atelectasis of right lung Code(s): J98.11 - ATELECTASIS (2) Pneumonia Code(s): J18.9 - PNEUMONIA, UNSPECIFIED ORGANISM (3) Chronic GERD Code(s): K21.9 - GASTRO-ESOPHAGEAL REFLUX DISEASE WITHOUT ESOPHAGITIS (4) Diabetes mellitus, insulin dependent (IDDM), uncontrolled Code(s): E10.65 - TYPE 1 DIABETES MELLITUS WITH HYPERGLYCEMIA (5) ESRD (end stage renal disease) on dialysis Code(s): N18.6 - END STAGE RENAL DISEASE; Z99.2 - DEPENDENCE ON RENAL DIALYSIS (6) Gastroparesis Code(s): K31.84 - GASTROPARESIS (7) HTN (hypertension) Code(s): I10 - ESSENTIAL (PRIMARY) HYPERTENSION plan will change to oral abx dialysis close watch patient very immunocompromised rest as per the team
[2017-11-12] MEDS ORDERED: EPOETIN ALFA 20,000 UNIT/1 ML VIAL IVPUSH ONE (11:00)
[2017-11-12] MEDS ORDERED: SODIUM CHLORIDE 250 ML IV PRN (11:00)
--- NOTE | 2017-11-12 13:05 | DS ---
Physical Exam: SUBJECTIVE: Patient seen and examined. See progress note from today OBJECTIVE: Vital Signs Period Temp Pulse Resp BP Sys/Ames Pulse Ox Last 24 Hr 97.7 F-98.4 F 74-84 18-22 134-164/80-109 97 PE Neuro: alert, awake, cn 2-12intact Pulm: bases clear today, right base improved, rhonchi CV: s1 s2 rrr Abd: s nt nd +bs Ext: LUE AVF, lower ext non pitting edema Laboratory Results - last 24 hr 11/07/17 11/12/17 11/12/17 06:25 06:27 10:15 POC Glucometer 504 352 Blood Type B POSITIVE Antibody Screen Negative Crossmatch See Detail 11/12/17 12:19 POC Glucometer 346 Blood Type Antibody Screen Crossmatch HOSPITAL COURSE: Date of Admission:11/07/17 Date of Discharge: 11/12/17 Minutes to complete discharge: 37 Discharge Summary Reason For Visit: DIZZINESS; PNEUMONIA Current Active Problems Anxiety about health (Acute) Atelectasis of right lung (Acute) Dizziness (Acute) Pneumonia (Acute) Hospital Course: Initial Hospital Curse: Briefly, this 27 year old female with pmhx of ESRD on HD (secondary to DM), IDDM , Hypertension, PVD, Atrial thrombus recently discharged after hospitalization for AMS/Unresponsiveness at home with cardiac arrest requiring CPR in the field presented last night with dizziness and sob. PT stated she took an increased gabapentin dose of 600mg and began to feel severely dizzy. Subsequent Hospital Course/Progress Note/DC summary: Assessment: 27 year old female with PMHx of ESRD on HD (secondary to DM), IDDM, Hypertension, PVD, Atrial thrombus recently discharged after hospitalization for AMS/Unresponsiveness at home with cardiac arrest requiring CPR in the field , admitted with shortness of breath and dizziness. Plan: 1. Dizziness - Resolved 2. Anemia of chronic disease - Hgb stable - S/p 2u PRBC on 11/08/17 3. PNA - Short course zosyn - Steroids stopped per pt request d/t hyperglycemia - Home with clindamycin 300mg TID x5 days - Cont oxygen, chronic user 4. ESRD on HD T S - Resume as outpt 5. HTN - Continue home meds 6. DM II - Levemir 17 units BID Dispo: - Home with above plan and medication - Pain mgmt, wound care, and PCP follow up Condition: Stable - Instructions Diet, Activity, Other Instructions: Please return to the ED for any new, persistent, or worsening symptoms. Follow up with your PCP in 1 week Resume home medications as directed Continue antibiotics as directed and until completed Follow up with wound care and pain management doctor Referrals: Devan Dubon MD [Staff Physician] - Nathan Vo MD [Staff Physician] - Disposition: HOME - Home Medications Comprehensive Discharge Medication List: Ambulatory Orders Losartan Potassium [Cozaar -] 100 mg PO DAILY 12/21/16 cloNIDine HCL [Catapres -] 0.3 mg PO TID 06/28/17 Oxycodone HCl [Oxycontin] 10 mg PO Q6H PRN 07/12/17 Pantoprazole Sodium [Protonix -] 20 mg PO DAILY #7 tablet.ec 08/30/17 Hydralazine HCl 100 mg PO TID 09/01/17 Collagenase Clostridium Hist. [Santyl -] 1 applic TP DAILY #1 tube 10/01/17 Insulin Detemir [Levemir Flextouch] 17 unit SQ BID #1 insuln.pen 10/01/17 Labetalol HCl [Normodyne -] 500 mg PO TID #225 tablet 10/01/17 Nifedipine ER [Procardia XL -] 90 mg PO DAILY #90 tab.er.24 10/01/17 Insulin Lispro [Humalog Kwikpen U-100] 100 unit SQ ASDIR #10 insuln.pen oxyCODONE HCL [Roxicodone -] 10 mg PO Q6H PRN #20 tablet MDD 4 10/29/17 Clindamycin [Cleocin -] 300 mg PO TID #15 capsule 11/12/17 Problem List - Problems (1) Dizziness Code(s): R42 - DIZZINESS AND GIDDINESS This patient is new to me today: No Emergency Visit: Yes ED Registration Date: 11/07/17 Care time: The patient presented to the Emergency Department on the above date and was hospitalized for further evaluation of their emergent condition. Critical Care patient: No - Discharge Referral Referred to [facility] Med P.C.: No
[2017-11-12 13:39] VITALS: TEMP 98.4
--- NOTE | 2017-11-12 13:49 | PN ---
Progress Note, Physician Chief Complaint: The patient seen in her room. Feeling "OK". History of Present Illness: 37 year old woman with hx of ESRD on HD, DM Type 1, Hypertension, Osteomylitis, hx of PE/DVT, Atrial thrombus who presented with lethargy s/p taking too much gabapentin. Blood Glucose remains highly fluctuant. The patient extremely non-compliant with any dietary restrictions. - Current Medication List Current Medications: Active Medications Acetaminophen (Tylenol -) 650 mg PO Q6H PRN PRN Reason: PAIN LEVEL 6-10 Last Admin: 11/12/17 10:07 Dose: 650 mg Albuterol Sulfate (Ventolin 0.083% Nebulizer Soln -) 1 amp NEB Q4H PRN PRN Reason: SHORT OF BREATH/WHEEZING Last Admin: 11/12/17 11:21 Dose: 1 amp Clonidine (Catapres -) 0.3 mg PO TID [facility] Last Admin: 11/12/17 06:25 Dose: 0.3 mg Collagenase (Santyl -) 1 applic TP DAILY [facility]; Protocol Last Admin: 11/11/17 09:41 Dose: 1 appful Heparin Sodium (Porcine) (Heparin -) 5,000 unit SQ TID [facility] Hydralazine HCl (Apresoline -) 100 mg PO TID [facility] Last Admin: 11/12/17 06:25 Dose: 100 mg Piperacillin Sod/Tazobactam (Sod 2.25 gm/ Dextrose) 50 mls @ 100 mls/hr IVPB Q8H-IV [facility]; Protocol Last Admin: 11/12/17 10:08 Dose: 100 mls/hr Insulin Aspart (Novolog Vial Sliding Scale -) 1 vial SQ ACHS [facility]; Protocol Last Admin: 11/12/17 12:22 Dose: 10 units Insulin Detemir (Levemir Vial) 15 units SQ 0700,2200 [facility] Last Admin: 11/12/17 06:29 Dose: 15 units Labetalol HCl (Normodyne -) 500 mg PO TID [facility] Last Admin: 11/12/17 06:24 Dose: 500 mg Losartan Potassium (Cozaar -) 100 mg PO DAILY [facility] Last Admin: 11/12/17 10:07 Dose: 100 mg Nifedipine (Procardia Xl -) 90 mg PO DAILY [facility] Last Admin: 11/12/17 10:38 Dose: Not Given Oxycodone HCl (Roxicodone -) 10 mg PO Q6H PRN PRN Reason: PAIN 6-10; IF TYLENOL NOT WORK Last Admin: 11/12/17 10:06 Dose: 10 mg - Objective Vital Signs: Vital Signs Temperature 98.4 F 11/12/17 13:20 Pulse Rate 82 11/12/17 13:25 Respiratory Rate 18 11/12/17 13:25 Blood Pressure 161/108 11/12/17 13:25 O2 Sat by Pulse Oximetry (%) 97 11/11/17 21:00 Constitutional: Yes: Well Nourished, Calm Eyes: Yes: Conjunctiva Clear HENT: Yes: Normocephalic Neck: Yes: Supple, Trachea Midline Cardiovascular: Yes: Regular Rate and Rhythm Respiratory: Yes: CTA Bilaterally, Diminished Gastrointestinal: Yes: Normal Bowel Sounds Musculoskeletal: Yes: Back Pain, Joint Stiffness Edema: Yes Edema: LLE: 4+, RLE: 2+ Labs: CBC, BMP 11/11/17 06:32 11/11/17 06:32 INR, PTT INR 1.34 (0.83-1.09) H 11/07/17 06:25 Problem List - Problems (1) Anemia Code(s): D64.9 - ANEMIA, UNSPECIFIED Qualifiers: Folate deficiency anemia type: dietary (2) Diabetes mellitus, insulin dependent (IDDM), uncontrolled Code(s): E10.65 - TYPE 1 DIABETES MELLITUS WITH HYPERGLYCEMIA (3) Diabetic foot ulcer Code(s): E11.621 - TYPE 2 DIABETES MELLITUS WITH FOOT ULCER; L97.509 - NON- PRESSURE CHRONIC ULCER OTH PRT UNSP FOOT W UNSP SEVERITY (4) ESRD (end stage renal disease) on dialysis Code(s): N18.6 - END STAGE RENAL DISEASE; Z99.2 - DEPENDENCE ON RENAL DIALYSIS (5) HTN (hypertension) Code(s): I10 - ESSENTIAL (PRIMARY) HYPERTENSION Assessment/Plan 37 year old woman with hx of ESRD on HD, DM Type 1 (uncontrolled), Hypertension , Osteomylitis, hx of PE/DVT, Atrial thrombus who presented with lethargy s/p taking too much Gabapentin. The Doppler studies arenegative for DVT. HD today in the acute unit. Orders written and reviewed with the RN. Thank you. Susie Peter MD
[2017-11-12] MEDS ORDERED: HEPARIN NA (PORCINE) 5,000 UNITS/ML 1ML VIAL SQ SCH (14:00)
[2017-11-12 14:10] LABS: HEMOGLOBIN 9.3 GM/dL (10.7-15.3); MCH 27.6 pg (25.7-33.7); MEAN CELL VOLUME 86.3 fl (80-96); MEAN PLT VOLUME 9.2 fl (7.5-11.1); PLATELET COUNT 491 K/MM3 (134-434); RBC 3.36 M/mm3 (3.60-5.2); RDW 16.5 % (11.6-15.6); WHITE BLOOD COUNT 12.7 K/mm3 (4.0-10.0)
[2017-11-12 14:40] LABS: ANION GAP 13 (8-16); BLOOD UREA NITROGEN 64 mg/dL (7-18); CALCIUM 7.7 mg/dL (8.5-10.1); CHLORIDE 91 mmol/L (98-107); CO2 26 mmol/L (21-32); POTASSIUM 4.2 mmol/L (3.5-5.1); SODIUM 130 mmol/L (136-145)
[2017-11-12 14:41] LABS: CREATININE 5.5 mg/dL (0.55-1.02); PHOSPHOROUS 5.4 mg/dL (2.5-4.9)
[2017-11-12 14:43] LABS: GLUCOSE,RANDOM 336 mg/dL (74-106)
[2017-11-12] MEDS: CEFAZOLIN 3 GM in DEXTROSE 5%-WATER - 100 ML IVPB ONE ×2 (17:06→17:49)
[2017-11-12 17:58] VITALS: PULSE 93
[2017-11-12] MEDS: COLLAGENASE CLOSTRIDIUM HIST. 30 GRAMS TUBE TP SCH (17:59)
[2017-11-12 18:19] VITALS: BP 170/110
== END 2017-11-12 20:55 | disposition home or self-care (01) | DRG 917 ==
LOC: JER 04:38 → JERBED 09:22 → J7W 15:24
PROVIDERS: ADMIT Internal Medicine; ATTEND Nurse Practitioner Acute Care
PROC: 5A1D70Z Performance of Urinary Filtration, Intermittent, Less than 6 Hours Per Day (ICD-10-PCS; principal; 2017-11-08)
PROC: 30233N1 Transfusion of Nonautologous Red Blood Cells into Peripheral Vein, Percutaneous Approach (ICD-10-PCS; 2017-11-08)
DX: T42.6X1A Poisoning by other antiepileptic and sedative-hypnotic drugs, accidental (unintentional), initial encounter (principal); J18.9 Pneumonia, unspecified organism; N18.6 End stage renal disease; J98.11 Atelectasis; E87.2 Acidosis; I13.2 Hypertensive heart and chronic kidney disease with heart failure and with stage 5 chronic kidney disease, or end stage renal disease; R42 Dizziness and giddiness; E10.22 Type 1 diabetes mellitus with diabetic chronic kidney disease; E10.51 Type 1 diabetes mellitus with diabetic peripheral angiopathy without gangrene; E10.621 Type 1 diabetes mellitus with foot ulcer; Z99.2 Dependence on renal dialysis; Z96.41 Presence of insulin pump (external) (internal); D63.1 Anemia in chronic kidney disease; F41.8 Other specified anxiety disorders; Z86.74 Personal history of sudden cardiac arrest; Z91.14 Patient's other noncompliance with medication regimen; Z86.711 Personal history of pulmonary embolism; Z87.891 Personal history of nicotine dependence; Z86.718 Personal history of other venous thrombosis and embolism
CPT/HCPCS: 36415; 36430; 70450-TC; 71045-TC-FY; 80048; 80053; 82550; 82803; 82962; 83735; 84100; 84484; 84703; 85025; 85027; 85610; 86850; 86900; 86901; 86922; 87040; 93005; 93010; 93970-TC; 94010; 94640; 99282-25; 99285-25; J0735; J0885; P9038; P9058

== ENCOUNTER 2017-11-23 15:39 | Inpatient (IN) | payer OTHER ==
[2017-11-23 15:55] VITALS: BMI 22.6
[2017-11-23] MEDS ORDERED: ACETAMINOPHEN 1000 MG/100 ML VIAL (NON FORMULARY) IVPB ONE (16:10)
[2017-11-23] MEDS ORDERED: IBUPROFEN 800 MG/8 ML IJ IVPB ONE ×2 (16:11→17:06)
--- NOTE | 2017-11-23 16:12 | PDOC ---
Attending Attestation - HPI HPI: 11/23/17 17:05 The patient is a 27 year old female with a significant past medical history of ESRD on dialysis MWF (completed most of dialysis today with 30 minutes left), HTN, IDDM, and PE who presents to the emergency department from dialysis with SOB, dry cough, and fever today. The patient states she has had her cough since yesterday but denies any sputum production. The patient denies chest pain, headache and dizziness. The patient denies chills , nausea, vomit, diarrhea and constipation. The patient denies dysuria, frequency, urgency and hematuria. Allergies: lactose - Physicial Exam PE: 11/23/17 17:03 Constitutional: Awake, alert, oriented. No acute distress. Head: Normocephalic. Atraumatic Eyes: PERRL. EOMI. Conjunctivae are not pale. ENT: Mucous membranes are moist and intact. Posterior pharynx without exudates or erythema. Uvula midline. Neck: Supple. Full ROM. No lymphadenopathy. Cardiovascular: Regular rate. Regular rhythm. S1, S2 regular. Distal pulses are 2+ and symmetric. Pulmonary/Chest: (+) Coarse rhonchorous breath sounds bilaterally. No evidence of respiratory distress. No Wheezing or rales. Abdominal: Soft and non-distended. There is no tenderness. No rebound, guarding or rigidity. No organomegaly. No palpable masses. Good bowel sounds. Back: No CVA tenderness. Musculoskeletal: (+) 4+ pitting edema to bilateral lower extremities. Fistula to LUE. No cyanosis. No clubbing. Full range of motion in all extremities. Nocalf tenderness. Radial/pedal pulses are intact and 2+ bilaterally Skin: Skin is warm and dry. No petechiae. No purpura. Neurological: Alert and oriented to person, place, and time. Cranial nerves II -XII are grossly intact. Normal speech. Strength is grossly symmetric. No sensory deficits. Psychiatric: Good eye contact. Normal interaction, affect and behavior. - Medical Decision Making 11/23/17 17:05 Documentation prepared by Sasha Atkinson, acting as medical technician assistant for Samanta Rojas DO <Sasha Atkinson - Last Filed: 11/23/17 17:05> - Resident Resident Name: Kelley Travis - ED Attending Attestation I have performed the following: I have examined & evaluated the patient, The case was reviewed & discussed with the resident, I agree w/resident's findings & plan, Exceptions are as noted - Critical Care Time Total Critical Care Time: 35 Critical Care Statement: The care of this patient involved high complexity decision making to prevent further life threatening deterioration of the patient 's condition and/or to evaluate & treat vital organ system(s) failure or risk of failure. - Medical Decision Making 11/23/17 16:11 I, Dr. Samanta Rojas, DO, attest that this document has been prepared under my direction and personally reviewed by me in its entirety. I further attest, that it accurately reflects all work, treatment, procedures and medical decision -making performed by me. 11/23/17 17:00 a/p: 27yo female with hx of ESRD on HD presents from HD for eval of sob/cough/ fever -sob/cough - nonproductive started last night -fever started today on HD -pt with bronchospastic cough currently - nonproductive -coarse bs on exam -concern for pna -will send labs, cxr, ekg, cultures -pt will need admission 11/23/17 17:01 pt with 4+ pitting edema to LE fistula to LUE -missed last 30min of HD today -will start broad spectrum abx will monitor and reassess 20 ultrasounds of LE since april - all negative for DVT, no change in LE swelling 11/23/17 17:46 case discussed with FIELD EDUCATION COORDINATOR from [facility] who accepts pt to service new wound to RLE - will send wound culture increasing wbc, increasing RLL infiltrate will admit for pna and sob <Samanta Rojas - Last Filed: 11/23/17 17:47> Discharge Disposition - Discharge Dispostion Last Admission D/C Date: 11/12/17 Decision to Admit order: Yes <Samanta Rojas - Last Filed: 11/23/17 17:47> - Diagnosis Pneumonia, Ulcer of right leg - Discharge Dispostion Condition at time of disposition: Guarded
--- NOTE | 2017-11-23 16:20 | PDOC ---
History of Present Illness - General Chief Complaint: Shortness of Breath Stated Complaint: Shortness of Breath Time Seen by Provider: 11/23/17 15:54 - History of Present Illness Initial Comments: 11/23/17 16:33 27 year old with past medical history of ESRD on dialysis since 2011, DM, HTN and recent hospitalization for PNA who was BIBA from dialysis with shortness of breath and weakness. The patient completed a course of clindamycin for PNA and was discharged on 11/13/17. She denies chest pain, abdominal pain, headache, fever. She does not urinate. Per mother the patient's legs were not swollen prior to admission to the hospital. She has no other complaints at bedside. PMHX: as in HPI PSHX: none Meds: Allergies: lactose Tob: none Etoh: none Rec drugs: none PCP: Past History - Past Medical History Allergies/Adverse Reactions: Allergies Allergy/AdvReac Type Severity Reaction Status Date / Time lactose AdvReac Verified 11/23/17 15:55 Home Medications: Ambulatory Orders Losartan Potassium [Cozaar -] 100 mg PO DAILY 12/21/16 cloNIDine HCL [Catapres -] 0.3 mg PO TID 06/28/17 Oxycodone HCl [Oxycontin] 10 mg PO Q6H PRN 07/12/17 Pantoprazole Sodium [Protonix -] 20 mg PO DAILY #7 tablet.ec 08/30/17 Hydralazine HCl 100 mg PO TID 09/01/17 Collagenase Clostridium Hist. [Santyl -] 1 applic TP DAILY #1 tube 10/01/17 Insulin Detemir [Levemir Flextouch] 17 unit SQ BID #1 insuln.pen 10/01/17 Labetalol HCl [Normodyne -] 500 mg PO TID #225 tablet 10/01/17 Nifedipine ER [Procardia XL -] 90 mg PO DAILY #90 tab.er.24 10/01/17 Insulin Lispro [Humalog Kwikpen U-100] 100 unit SQ ASDIR #10 insuln.pen oxyCODONE HCL [Roxicodone -] 10 mg PO Q6H PRN #20 tablet MDD 4 10/29/17 Clindamycin [Cleocin -] 300 mg PO TID #15 capsule 11/12/17 Oxycodone HCl 10 mg PO Q6H PRN #15 tablet MDD 4 11/12/17 Anemia: Yes Asthma: No Cancer: No Cardiac Disorders: No CVA: No COPD: No CHF: No DVT: No Dementia: No Diabetes: Yes (15 yrs Insulin dependent) Dialysis: Yes (M/W/F) Disorders: Yes (esrd) HTN: Yes Hypercholesterolemia: No Kidney Stones: (ESRD, Dialysis Mon, W, F, Left arm Fistula) Liver Disease: No Seizures: Yes (Several yrs ago, no medication) Thyroid Disease: No - Surgical History Abdominal Surgery: No Appendectomy: No Cardiac Surgery: Yes (myxoma removed 2013) Cholecystectomy: Yes Lung Surgery: No Neurologic Surgery: No Orthopedic Surgery: Yes (foot sx x2) - Immunization History Td Vaccination: No TDAP Vaccination: No Immunization Up to Date: Yes - Suicide/Smoking/Psychosocial Hx Smoking Status: No Smoking History: Never smoked Have you smoked in the past 12 months: No Number of Cigarettes Smoked Daily: 10 If you are a former smoker, when did you quit?: couple months ago Hx Alcohol Use: No Drug/Substance Use Hx: No Substance Use Type: None Hx Substance Use Treatment: No Review of Systems - Review of Systems Able to Perform ROS?: Yes Is the patient limited Upper Sorbian proficient: No Constitutional: No: Chills, Diaphoresis, Fever Respiratory: Yes: Cough, Shortness of Breath Cardiac (ROS): No: Chest Pain, Chest Tightness ABD/GI: No: Constipated, Diarrhea, Nausea, Vomiting Neurological: No: Headache, Numbness, Tingling *Physical Exam - Vital Signs Last Vital Signs Temp Pulse Resp BP Pulse Ox 99.0 F 114 H 22 173/104 100 11/23/17 15:53 11/23/17 15:53 11/23/17 15:53 11/23/17 15:53 11/23/17 16:00 - Physical Exam Comments: 11/23/17 16:13 L sided av tachycardia bilteral 4+ pitting edema new from inpt admission 3cm blister on R benitez stage 2 1cm ulcer on R lateral aspect of foot L foot blister at base of first two digits 11/23/17 16:13 11/23/17 19:09 ED Treatment Course - LABORATORY CBC & Chemistry Diagram: 11/23/17 16:11 11/23/17 16:11 - RADIOLOGY Radiology Studies Ordered: Category Date Time Status CHEST X-RAY PORTABLE* [RAD] Stat Radiology 11/23/17 16:10 Ordered Medical Decision Making - Medical Decision Making 11/23/17 19:10 27 year old with past medical history of ESRD on dialysis since 2011, DM, HTN and recent hospitalization for PNA who was BIBA from dialysis with shortness of breath and weakness. DDX: PNA vs bronchitis vs W/U: - cbc, cmp, trop, pt/inr, lactic acid - ekg ED Course: Patient tachycardic, weak and tired appearing. wbc: 15.9 11/23/17 19:10 Patient reassessed. Appears improved. Pt. admitted to medicine. *DC/Admit/Observation/Transfer Diagnosis at time of Disposition: Pneumonia, Ulcer of right leg - Discharge Dispostion Condition at time of disposition: Guarded - Referrals - Patient Instructions - Post Discharge Activity
[2017-11-23] MEDS ORDERED: ACETAMINOPHEN INJECTION 100 ML IVPB ONE (16:35)
[2017-11-23] MEDS ORDERED: VANCOMYCIN 1,000 MG in DEXTROSE 5%-WATER - 250 ML IVPB ONE (17:02)
[2017-11-23] MEDS ORDERED: PIPERACILLIN/TAZOB 4.5 GM 4.5 GM in DEXTROSE 5%-WATER 100 ML IVPB ONE (17:02)
[2017-11-23 17:11] LABS: BASO % 1.1 % (0-2.0); EOS % 0.2 % (0-4.5); HEMATOCRIT 26.7 % (32.4-45.2); HEMOGLOBIN 8.4 GM/dL (10.7-15.3); LYMPH % 2.6 % (8-40); MCH 26.8 pg (25.7-33.7); MCHC 31.4 g/dl (32.0-36.0); MEAN CELL VOLUME 85.4 fl (80-96); MEAN PLT VOLUME 8.8 fl (7.5-11.1); MONO % 8.4 % (3.8-10.2); NEUT % 87.7 % (42.8-82.8); PLATELET COUNT 722 K/MM3 (134-434); RBC 3.13 M/mm3 (3.60-5.2); RDW 17.2 % (11.6-15.6); WHITE BLOOD COUNT 15.9 K/mm3 (4.0-10.0)
[2017-11-23 17:15] LABS: VENOUS PC02 42.3 mmHg (38-52); VENOUS PH 7.33 (7.32-7.42); VENOUS PO2 65.1 mmHg (28-48)
[2017-11-23 17:26] LABS: INR 1.5 (0.83-1.09)
[2017-11-23] MEDS ORDERED: PIPERACILLIN/TAZOB 4.5 GM 4.5 GM/100 ML BAG IVPB ONE (17:26)
[2017-11-23 17:29] LABS: ACTIVATED PTT 29.8 SECONDS (25.2-36.5)
--- NOTE | 2017-11-23 17:51 | HP ---
Admitting History and Physical - Admission Chief Complaint: sob, lethargy History of Present Illness: This is a 27 year old female with pmhx of ESRD on HD (MWF stopped 30 mins before end, LUE AVF), IDDM, HTN, PVD, Atrial thrombus, cardiac arrest, recent discharge with PNA now presenting with 2 days of shortness breath and cough and feeling exhausted. PT missed HD yesterday due to exhaustion and went today stating she slept through most of it and was sent to ED before finishing. She completed her previous ABX PO course and was feeling fine for a couple days. Denies productive cough, just wet no sputum, no fever, no chest pain. Has new open wound to RLE calf. Increased oxygen requirements the last 2 days. History Source: Patient Limitations to Obtaining History: No Limitations - Past Medical History Cardiovascular: Yes: CHF, HTN, Other (thrombus in atrium, PE, DVT) Pulmonary: No: Sleep Apnea Renal/: Yes: Renal Failure, Hemodialysis ...LMP: 05/13/17 Heme/Onc: Yes: Anemia, Other (atrial myxoma s/p surgical removal. Also has a history of PE ) Infectious Disease: Yes: MRSA, Other Endocrine: Yes: Diabetes Mellitus (type 1 on insulin pump) - Past Surgical History Past Surgical History: Yes: AV Fistula/Graft (Right arm) - Smoking History Smoking history: Never smoked Have you smoked in the past 12 months: No Aproximately how many cigarettes per day: 10 If you are a former smoker, when did you quit?: couple months ago - Alcohol/Substance Use Hx Alcohol Use: No History of Substance Use: reports: None - Social History ADL: Independent Occupation: unemployed History of Recent Travel: No Home Medications - Allergies Allergies/Adverse Reactions: Allergies Allergy/AdvReac Type Severity Reaction Status Date / Time lactose AdvReac Verified 11/23/17 15:55 - Home Medications Home Medications: Ambulatory Orders Losartan Potassium [Cozaar -] 100 mg PO DAILY 12/21/16 cloNIDine HCL [Catapres -] 0.3 mg PO TID 06/28/17 Oxycodone HCl [Oxycontin] 10 mg PO Q6H PRN 07/12/17 Pantoprazole Sodium [Protonix -] 20 mg PO DAILY #7 tablet.ec 08/30/17 Hydralazine HCl 100 mg PO TID 09/01/17 Collagenase Clostridium Hist. [Santyl -] 1 applic TP DAILY #1 tube 10/01/17 Insulin Detemir [Levemir Flextouch] 17 unit SQ BID #1 insuln.pen 10/01/17 Labetalol HCl [Normodyne -] 500 mg PO TID #225 tablet 10/01/17 Nifedipine ER [Procardia XL -] 90 mg PO DAILY #90 tab.er.24 10/01/17 Insulin Lispro [Humalog Kwikpen U-100] 100 unit SQ ASDIR #10 insuln.pen oxyCODONE HCL [Roxicodone -] 10 mg PO Q6H PRN #20 tablet MDD 4 10/29/17 Clindamycin [Cleocin -] 300 mg PO TID #15 capsule 11/12/17 Oxycodone HCl 10 mg PO Q6H PRN #15 tablet MDD 4 11/12/17 Gabapentin [Neurontin -] 200 mg PO Q8H 11/25/17 Family Disease History - Family Disease History Family Disease History: Diabetes: Grandparent (HTN), Heart Disease: Grandparent , Other: Father (unknown), Mother (HTN) Review of Systems - Review of Systems Constitutional: reports: Lethargy, Weakness Eyes: reports: No Symptoms HENT: reports: No Symptoms Neck: reports: No Symptoms Cardiovascular: reports: Shortness of Breath Respiratory: reports: SOB, SOB on Exertion Gastrointestinal: reports: No Symptoms Genitourinary: reports: No Symptoms Musculoskeletal: reports: No Symptoms Integumentary: reports: Wound (rle, foot) Neurological: reports: No Symptoms Endocrine: reports: No Symptoms Hematology/Lymphatic: reports: No Symptoms Psychiatric: reports: No Symptoms Physical Examination Vital Signs: Vital Signs Temperature 99.0 F 11/23/17 15:53 Pulse Rate 114 H 11/23/17 15:53 Respiratory Rate 22 11/23/17 15:53 Blood Pressure 173/104 11/23/17 15:53 O2 Sat by Pulse Oximetry (%) 100 11/23/17 16:00 Eyes: Yes: Conjunctiva Clear HENT: Yes: Atraumatic Neck: Yes: Supple Cardiovascular: Yes: Regular Rate and Rhythm, S1, S2 Respiratory: Yes: Diminished (course), On Nasal O2, SOB, Tachypnea Gastrointestinal: Yes: Normal Bowel Sounds, Soft Musculoskeletal: Yes: Muscle Weakness Edema: Yes Edema: LLE: 3+, RLE: 3+ Integumentary: Yes: Skin Tear (RLE) Wound/Incision: Yes: Open to air, Other (r foot wound) Neurological: Yes: Alert, Oriented, Cran Nerves II-XII Intact Labs: CBC, BMP 11/23/17 16:11 Imaging - Results Chest X-ray: Report Reviewed (r sided infiltrate), Image Reviewed Problem List - Problems (1) Pneumonia Code(s): J18.9 - PNEUMONIA, UNSPECIFIED ORGANISM (2) Ulcer of right leg Code(s): L97.919 - NON-PRS CHRONIC ULC UNSP PRT OF R LOW LEG W UNSP SEVERITY (3) Anemia Code(s): D64.9 - ANEMIA, UNSPECIFIED Qualifiers: Folate deficiency anemia type: dietary (4) Diabetes mellitus, insulin dependent (IDDM), uncontrolled Code(s): E10.65 - TYPE 1 DIABETES MELLITUS WITH HYPERGLYCEMIA (5) ESRD (end stage renal disease) on dialysis Code(s): N18.6 - END STAGE RENAL DISEASE; Z99.2 - DEPENDENCE ON RENAL DIALYSIS Assessment/Plan Assessment: 27 year old female with PMHx of ESRD on HD (secondary to DM), IDDM, Hypertension, PVD, Atrial thrombus admitted with worsening sob and cough. Plan: 1. Sepsis, worsening dyspnea, cough, RLL PNA +/- component of atelectasis - Increased leukocytosis - Caution with fluids, ESRD pt - Blood cx sent - milly Hernandez in ED, continue - Cont supplemental o2, on chronic o2 - Send viral panel - ID, pulm consulted 2. ESRD on HD MWF - HD today to make up for missed session yesterday - Renal consulted 3. HTN - Elevated - Continue home meds 4. DM II - Levemir 17 units BID - ISS, BGM ACHS 5. Reactive thrombocytosis - Elevated on discharge, with increase now - Likely infectious, if persists will need hematology work up r/o essential cause vs MDS - Heparin sq 6. New RLE wound - Wound cx sent - Podiatry consult Visit type - Emergency Visit Emergency Visit: Yes ED Registration Date: 11/23/17 Care time: The patient presented to the Emergency Department on the above date and was hospitalized for further evaluation of their emergent condition. - New Patient This patient is new to me today: Yes Date on this admission: 11/29/17 - Critical Care Critical Care patient: No Hospitalist Screening - Colonoscopy Questionnaire Colonoscopy Questionnaire: Colonoscopy Questionnaire - Patient: 50 - 75 years old and never had a screening colonoscopy: Unknown History of colon or rectal polyps, or CA: Unknown History of IBD, Crohn's disease or UC: Unknown History of abdominal radiation therapy as a child: Unknown - Relative: 1 with colon or rectal CA, or polyps at age 60 or younger: Unknown Colon or rectal CA diagnosed at age 45 or younger: Unknown Multiple relatives with colon or rectal CA: Unknown - Outcome: Screening Result: Negative Screen
[2017-11-23] MEDS ORDERED: ALBUTEROL SO4 2.5/IPRATROPIUM 0.5 INH SOL 3 ML VIAL.NEB. NEB ONE ×3 (18:32→19:37)
[2017-11-23] MEDS ORDERED: VANCOMYCIN 1,000 MG in DEXTROSE 5%-WATER - 250 ML IVPB SCH (18:45)
[2017-11-23] MEDS ORDERED: VANCOMYCIN 1 GRAM (PRE-DOCKED) 1,000 MG/250 ML BAG IVPB ONE (18:51)
[2017-11-23 19:02] LABS: ALBUMIN 2.7 g/dl (3.4-5.0); ANION GAP 16 MMOL/L (8-16); BILIRUBIN,TOTAL 0.4 mg/dL (0.2-1.0); BLOOD UREA NITROGEN 46 mg/dL (7-18); CALCIUM 9.6 mg/dL (8.5-10.1); CHLORIDE 99 mmol/L (98-107); CO2 22 mmol/L (21-32); CREATININE 4.6 mg/dL (0.55-1.02); GLUCOSE,RANDOM 269 mg/dL (74-106); POTASSIUM 4.5 mmol/L (3.5-5.1); SGOT/AST 14 U/L (15-37); SGPT/ALT < 6 U/L (12-78); SODIUM 137 mmol/L (136-145); TOT PROT 7.8 g/dl (6.4-8.2)
[2017-11-23 19:16] LABS: ALK PHOS 1116 U/L (45-117)
[2017-11-23] MEDS: ALBUTEROL SO4 2.5/IPRATROPIUM 0.5 INH SOL 3 ML VIAL.NEB. NEB SCH (20:15)
[2017-11-23] MEDS: LABETALOL HCL 200 MG TABLET (FP) PO SCH (22:40)
[2017-11-23] MEDS: cloNIDine HCL 0.1 MG TABLET PO SCH (22:41)
[2017-11-23] MEDS: INSULIN (LEVEMIR) 100 UNITS/ML UNITS SQ SCH (22:55)
[2017-11-23] MEDS: INSULIN SLIDING SCALE (NOVOLOG) 1 VIAL SQ SCH (22:56)
[2017-11-23] MEDS: hydrALAZINE HCL 50 MG TABLET (FP) PO SCH (22:58)
[2017-11-24] MEDS ORDERED: DEXTROSE 5%-WATER - 50 ML IVPB ONE ×3 (00:39→17:06)
[2017-11-24] MEDS ORDERED: PIPERACILLIN/TAZOBACTAM 3.375 GM VIAL IVPB ONE ×2 (00:39→09:42)
[2017-11-24] MEDS: PIPERACILLIN/TAZOB 3.375 GM 3.375 GM in DEXTROSE 5%-WATER - 50 ML IVPB SCH ×4 (01:02→09:48)
[2017-11-24] MEDS: cloNIDine HCL 0.1 MG TABLET PO SCH ×3 (04:59→21:48)
[2017-11-24] MEDS: LABETALOL HCL 200 MG TABLET (FP) PO SCH ×3 (04:59→21:48)
[2017-11-24] MEDS: hydrALAZINE HCL 50 MG TABLET (FP) PO SCH ×3 (04:59→21:48)
[2017-11-24] MEDS: HEPARIN NA (PORCINE) 5,000 UNITS/ML 1ML VIAL SQ SCH ×3 (05:01→21:48)
[2017-11-24] MEDS: INSULIN SLIDING SCALE (NOVOLOG) 1 VIAL SQ SCH ×4 (06:02→21:47)
[2017-11-24] MEDS: INSULIN (LEVEMIR) 100 UNITS/ML UNITS SQ SCH ×2 (06:02→21:48)
[2017-11-24] MEDS ORDERED: PT OWN MED DRAWER 7, Y5N ONE ×4 (06:47→23:43)
[2017-11-24] MEDS: ALBUTEROL SO4 2.5/IPRATROPIUM 0.5 INH SOL 3 ML VIAL.NEB. NEB SCH ×3 (07:00→20:41)
[2017-11-24 08:03] LABS: BASO % 1.2 % (0-2.0); EOS % 0.7 % (0-4.5); HEMATOCRIT 24.1 % (32.4-45.2); HEMOGLOBIN 7.6 GM/dL (10.7-15.3); MCH 26.7 pg (25.7-33.7); MCHC 31.5 g/dl (32.0-36.0); MEAN CELL VOLUME 84.9 fl (80-96); MEAN PLT VOLUME 8.6 fl (7.5-11.1); MONO % 15.5 % (3.8-10.2); NEUT % 77.6 % (42.8-82.8); PLATELET COUNT 590 K/MM3 (134-434); RBC 2.84 M/mm3 (3.60-5.2); RDW 16.9 % (11.6-15.6)
[2017-11-24 08:44] LABS: ALBUMIN 2.4 g/dl (3.4-5.0); ANION GAP 13 MMOL/L (8-16); BLOOD UREA NITROGEN 56 mg/dL (7-18); CALCIUM 9.3 mg/dL (8.5-10.1); CHLORIDE 98 mmol/L (98-107); CO2 23 mmol/L (21-32); CREATININE 5.6 mg/dL (0.55-1.02); GLUCOSE,RANDOM 249 mg/dL (74-106); POTASSIUM 5.2 mmol/L (3.5-5.1); SGOT/AST 11 U/L (15-37); SGPT/ALT < 6 U/L (12-78); SODIUM 134 mmol/L (136-145)
[2017-11-24 09:08] LABS: ALK PHOS 958 U/L (45-117); BILIRUBIN,TOTAL 0.4 mg/dL (0.2-1.0); TOT PROT 7.4 g/dl (6.4-8.2)
--- NOTE | 2017-11-24 09:23 | PN ---
Physical Exam: SUBJECTIVE: Patient seen and examined. She has a cough and feels SOB. OBJECTIVE: Vital Signs Period Temp Pulse Resp BP Sys/Ames Pulse Ox Last 24 Hr 98.1 F-101.2 F 91-114 16-22 132-173/71-104 98-100 GENERAL: The patient is awake, alert, and fully oriented, coughing and in mild respiratory distress. LUNGS: Few crackles at bases. HEART: Regular rhythm, tachycardic, S1, S2 without murmur, rub or gallop. ABDOMEN: Soft, nontender, nondistended, normoactive bowel sounds, no guarding, no rebound, no hepatosplenomegaly, no masses. EXTREMITIES: 2+ pulses, warm, well-perfused, trace edema. Laboratory Results - last 24 hr 11/23/17 11/23/17 11/23/17 16:11 16:11 16:18 WBC 15.9 H RBC 3.13 L Hgb 8.4 L Hct 26.7 L MCV 85.4 MCH 26.8 MCHC 31.4 L RDW 17.2 H Plt Count 722 H D MPV 8.8 Absolute Neuts (auto) 13.9 H Neutrophils % 87.7 H Lymphocytes % 2.6 L D Monocytes % 8.4 Eosinophils % 0.2 D Basophils % 1.1 Nucleated RBC % 0 PT with INR 17.00 H INR 1.50 H PTT (Actin FS) 29.8 VBG pH POC VBG pCO2 POC VBG pO2 Mixed VBG HCO3 Sodium Cancelled Potassium Cancelled Chloride Cancelled Carbon Dioxide Cancelled Anion Gap Cancelled BUN Cancelled Creatinine Cancelled Creat Clearance w eGFR Cancelled POC Glucometer Random Glucose Cancelled Lactic Acid Calcium Cancelled Magnesium Total Bilirubin Cancelled AST Cancelled ALT Cancelled Alkaline Phosphatase Cancelled Creatine Kinase Troponin I B-Natriuretic Peptide Total Protein Cancelled Albumin Cancelled 11/23/1718 11/23/17 16:18 16:45 16:45 WBC RBC Hgb Hct MCV MCH MCHC RDW Plt Count MPV Absolute Neuts (auto) Neutrophils % Lymphocytes % Monocytes % Eosinophils % Basophils % Nucleated RBC % PT with INR INR PTT (Actin FS) VBG pH 7.33 POC VBG pCO2 42.3 POC VBG pO2 65.1 H D Mixed VBG HCO3 21.4 Sodium Potassium Chloride Carbon Dioxide Anion Gap BUN Creatinine Creat Clearance w eGFR POC Glucometer Random Glucose Lactic Acid 1.1 Calcium Magnesium Total Bilirubin AST ALT Alkaline Phosphatase Creatine Kinase Troponin I Cancelled B-Natriuretic Peptide Total Protein Albumin 11/23/17 11/23/17 11/23/17 17:02 18:32 18:32 WBC RBC Hgb Hct MCV MCH MCHC RDW Plt Count MPV Absolute Neuts (auto) Neutrophils % Lymphocytes % Monocytes % Eosinophils % Basophils % Nucleated RBC % PT with INR INR PTT (Actin FS) VBG pH POC VBG pCO2 POC VBG pO2 Mixed VBG HCO3 Sodium 137 Potassium 4.5 Chloride 99 Carbon Dioxide 22 Anion Gap 16 BUN 46 H Creatinine 4.6 H Creat Clearance w eGFR 11.35 POC Glucometer Random Glucose 269 H Lactic Acid Calcium 9.6 Magnesium Cancelled Total Bilirubin 0.4 AST 14 L ALT < 6 L Alkaline Phosphatase 1116 H D Creatine Kinase 52 Troponin I < 0.02 B-Natriuretic Peptide Total Protein 7.8 Albumin 2.7 L 11/23/17 11/23/17 11/23/17 19:50 21:30 21:30 WBC RBC Hgb Hct MCV MCH MCHC RDW Plt Count MPV Absolute Neuts (auto) Neutrophils % Lymphocytes % Monocytes % Eosinophils % Basophils % Nucleated RBC % PT with INR INR PTT (Actin FS) VBG pH POC VBG pCO2 POC VBG pO2 Mixed VBG HCO3 Sodium Potassium Chloride Carbon Dioxide Anion Gap BUN Creatinine Creat Clearance w eGFR POC Glucometer 366.04660 Random Glucose 408 H* Lactic Acid Calcium Magnesium Total Bilirubin AST ALT Alkaline Phosphatase Creatine Kinase Troponin I B-Natriuretic Peptide 65880.97 H Total Protein Albumin 11/23/17 11/24/17 11/24/17 21:42 05:32 06:30 WBC 13.0 H RBC 2.84 L Hgb 7.6 L Hct 24.1 L MCV 84.9 MCH 26.7 MCHC 31.5 L RDW 16.9 H Plt Count 590 H MPV 8.6 Absolute Neuts (auto) 10.1 H Neutrophils % 77.6 Lymphocytes % 5.0 L D Monocytes % 15.5 H D Eosinophils % 0.7 D Basophils % 1.2 Nucleated RBC % 0 PT with INR INR PTT (Actin FS) VBG pH POC VBG pCO2 POC VBG pO2 Mixed VBG HCO3 Sodium Potassium Chloride Carbon Dioxide Anion Gap BUN Creatinine Creat Clearance w eGFR POC Glucometer 440 247 Random Glucose Lactic Acid Calcium Magnesium Total Bilirubin AST ALT Alkaline Phosphatase Creatine Kinase Troponin I B-Natriuretic Peptide Total Protein Albumin 11/24/17 06:30 WBC RBC Hgb Hct MCV MCH MCHC RDW Plt Count MPV Absolute Neuts (auto) Neutrophils % Lymphocytes % Monocytes % Eosinophils % Basophils % Nucleated RBC % PT with INR INR PTT (Actin FS) VBG pH POC VBG pCO2 POC VBG pO2 Mixed VBG HCO3 Sodium 134 L Potassium 5.2 H Chloride 98 Carbon Dioxide 23 Anion Gap 13 BUN 56 H Creatinine 5.6 H Creat Clearance w eGFR 9.04 POC Glucometer Random Glucose 249 H Lactic Acid Calcium 9.3 Magnesium Total Bilirubin AST 11 L ALT < 6 L Alkaline Phosphatase Creatine Kinase Troponin I B-Natriuretic Peptide Total Protein Albumin 2.4 L Active Medications Generic Name Dose Route Start Last Admin Trade Name Freq PRN Reason Stop Dose Admin Acetaminophen 650 mg 11/23/17 18:37 Tylenol - PO Q4H PRN FEVER Albuterol/Ipratropium 1 amp 11/23/17 20:00 11/24/17 07:00 Duoneb - NEB 1 amp RTID ROSA MARIA Administration Clonidine 0.3 mg 11/23/17 22:00 11/24/17 04:59 Catapres - PO 0.3 mg TID ROSA MARIA Administration Collagenase 1 applic 11/24/17 10:00 Santyl - TP DAILY ROSA MARIA Protocol Heparin Sodium (Porcine) 5,000 unit 11/24/17 06:00 11/24/17 05:01 Heparin - SQ 5,000 unit TID ROSA MARIA Administration Hydralazine HCl 100 mg 11/23/17 22:00 11/24/17 04:59 Apresoline - PO 100 mg TID ROSA MARIA Administration Piperacillin Sod/Tazobactam 50 mls @ 100 mls/hr 11/24/17 02:00 11/24/17 01:02 Sod 3.375 gm/ Dextrose IVPB 11/24/17 10:29 100 mls/hr Q8H-IV ROSA MARIA Administration Protocol Piperacillin Sod/Tazobactam 50 mls @ 100 mls/hr 11/24/17 02:00 11/24/17 02:20 Sod 3.375 gm/ Dextrose IVPB 11/24/17 10:29 Not Given Q8H-IV ROSA MARIA Vancomycin HCl 1,000 mg/ 250 mls @ 200 mls/hr 11/23/17 18:45 Dextrose IVPB Q24H [facility] Protocol Insulin Aspart 1 vial 11/23/17 22:00 11/24/17 06:02 Novolog Vial Sliding Scale - SQ 4 unit ACHS ROSA MARIA Administration Protocol Insulin Detemir 17 units 11/23/17 22:00 11/24/17 06:02 Levemir Vial SQ 17 unit BID@0700,2200 ROSA MARIA Administration Labetalol HCl 500 mg 11/23/17 22:00 11/24/17 04:59 Normodyne - PO 500 mg TID ROSA MARIA Administration Losartan Potassium 100 mg 11/24/17 10:00 Cozaar - PO DAILY ROSA MARIA Nifedipine 90 mg 11/24/17 10:00 Procardia Xl - PO DAILY ROSA MARIA Oxycodone HCl 10 mg 11/23/17 18:07 Roxicodone - PO Q6H PRN PAIN LEVEL 4 - 6 Pantoprazole Sodium 20 mg 11/24/17 10:00 Protonix - PO DAILY [facility] ASSESSMENT/PLAN: This is a 27 year old woman with a history of ESRD, type 1 DM, HTN, PAD, chronic hypoxic respiratory failure, PE, anemia who presented to the ED with SOB and cough. 1. Sepsis secondary to pneumonia - Had temp 101.2 yesterday evening - WBC improving - Continue Zosyn, Vancomycin, DuoNeb - Continue oxygen to maintain saturation > 90% - Respiratory viral panel pending - Blood cultures pending 2. ESRD - Continue HD as per nephrology 3. HTN - Continue Clonidine, Hydralazine, Procardia XL, Cozaar, Labetalol 4. Type 1 DM - Continue Levemir, Novolog sliding scale 5. Chronic hypoxic respiratory failure - Continue oxygen 6. Reactive thrombocytosis - Improving 7. Right foot diabetic ulcer - Continue wound care with Santyl 8. History of PE 9. Anemia secondary to ESRD - Continue Epogen Visit type - Emergency Visit Emergency Visit: Yes ED Registration Date: 11/23/17 Care time: The patient presented to the Emergency Department on the above date and was hospitalized for further evaluation of their emergent condition. - New Patient This patient is new to me today: Yes Date on this admission: 11/24/17 - Critical Care Critical Care patient: No - Discharge Referral Referred to [facility] Med P.C.: No
[2017-11-24] MEDS: LOSARTAN POTASSIUM 50 MG TABLET (FP) PO SCH ×2 (09:48→10:06)
[2017-11-24] MEDS: NIFEdipine E.R. 90 MG TABLET (FP) PO SCH ×2 (09:48→10:06)
[2017-11-24] MEDS: COLLAGENASE CLOSTRIDIUM HIST. 30 GRAMS TUBE TP SCH (09:48)
[2017-11-24] MEDS: PANTOPRAZOLE 20 MG TABLET (FP) PO SCH (09:48)
--- NOTE | 2017-11-24 10:51 | CONSULT ---
Consult - text type - Consultation Consultation Note: Podiatry Consultation: 27 year old poorly controlled non-compliant IDDM F presented to hospital for admission with PNA, SOB. Patient is s/p R fifth metatarsal head resection to rule out osteomyelitis. Doing better but does not comply with wound care follow up. Using santyl currently on the foot. Also notes new leg ulcers which is secondary to leg swelling RLE. Had low grade temp while in the hospital. PMHx: IDDM, HTN, HLP, ESRD on HD, h/o PE, PNA Meds: noted ALL: lactose CATRACHITA: R foot: pedal pulses 1/4, TG wnl, CFT brisk to all toes. There is a sub-fifth metatarsal diabetic ulcer mostly granular base mild fibrotic slough, hyperkeratotic borders, no probing to bone, no purulence, no fluctuance, no streaking cellulitis, no signs of infection. Dorsal fifth ray incision site well healed. Imp: 27 year old poorly controlled IDDM F with R foot diabetic ulcer 1. C/w santyl for local wound care Rx. 2. Patient instructed to minimize weightbearing activity. 3. Partial WB R Heel with surgical shoe. 4. Glycemic control. 5. Rest per medical team. Again I strongly advised patient on follow up in wound healing center upon discharge. No podiatric intervention at this time. Thank you for the courtesy of this consultation. Delfino Dubon DPM
[2017-11-24] MEDS: oxyCODONE HCL 5 MG TABLET PO PRN ×3 (12:07→23:53)
[2017-11-24] MEDS: ACETAMINOPHEN 325 MG TABLET (FP) PO PRN ×3 (12:08→23:54)
[2017-11-24] MEDS: guaiFENesin/D-M SUGAR-FREE/ACLHOL-FREE 118 ML BOTTLE PO PRN ×3 (12:09→23:52)
[2017-11-24] MEDS ORDERED: SODIUM CHLORIDE 250 ML IV PRN ×3 (12:11→17:14)
[2017-11-24] MEDS ORDERED: EPOETIN ALFA 20,000 UNIT/1 ML VIAL IVPUSH ONE (12:15)
--- NOTE | 2017-11-24 12:52 | PN ---
Progress Note (short form) - Note Progress Note: PULMONARY CONSULTATION DICTATED 11/24/17 IMP ACUTE RESPIRATORY DISTRESS PNEUMONIA CHF/FLUID OVERLOAD ESRD ON HD ATRIAL THROMBUS IDDM H/O DVT/PE RLE WOUND H/O CARDIAC ARREST PLAN ABX PER ID INHALED BRONCHODILATORS' O2 CULTURES F/U CHEST X-RAY WOUND CARE HD PER RENAL GLYCEMIC CONTROL DR BECERRA Problem List - Problems (1) Pneumonia Code(s): J18.9 - PNEUMONIA, UNSPECIFIED ORGANISM (2) Ulcer of right leg Code(s): L97.919 - NON-PRS CHRONIC ULC UNSP PRT OF R LOW LEG W UNSP SEVERITY (3) Cardiac arrest Code(s): I46.9 - CARDIAC ARREST, CAUSE UNSPECIFIED (4) Anemia Code(s): D64.9 - ANEMIA, UNSPECIFIED Qualifiers: Folate deficiency anemia type: dietary (5) ESRD (end stage renal disease) on dialysis Code(s): N18.6 - END STAGE RENAL DISEASE; Z99.2 - DEPENDENCE ON RENAL DIALYSIS (6) Gastroparesis Code(s): K31.84 - GASTROPARESIS (7) HTN (hypertension) Code(s): I10 - ESSENTIAL (PRIMARY) HYPERTENSION (8) SOB (shortness of breath) Code(s): R06.02 - SHORTNESS OF BREATH (10) Fluid overload Code(s): E87.70 - FLUID OVERLOAD, UNSPECIFIED (11) Anemia Code(s): D64.9 - ANEMIA, UNSPECIFIED
--- NOTE | 2017-11-24 14:27 | CON.ID ---
Consult Consult Specialty:: infectious diseases Referred by:: Mary Alice Reason for Consultation:: pna - History of Present Illness Chief Complaint: sob weakness History of Present Illness: 27 year old female with pmhx of ESRD on HD (MWF stopped 30 mins before end, LUE AVF), IDDM, HTN, PVD, Atrial thrombus, cardiac arrest, recent discharge with PNA now presenting with 2 days of shortness breath and cough and feeling exhausted. PT missed HD yesterday due to exhaustion and went today stating she slept through most of it and was sent to ED before finishing. She completed her previous ABX PO course and was feeling fine for a couple days. Denies productive cough, just wet no sputum, no fever, no chest pain. Has new open wound to RLE calf. Increased oxygen requirements the last 2 days. - History Source History Provided By: Patient, Medical Record Limitations to Obtaining History: No Limitations - Past Medical History Cardio/Vascular: Yes: CHF, HTN, Other (thrombus in atrium, PE, DVT) Pulmonary: No: Sleep Apnea Renal/: Yes: Renal Failure, Hemodialysis ...LMP: 05/13/17 Infectious Disease: Yes: MRSA, Other Endocrine: Yes: Diabetes Mellitus (type 1 on insulin pump) Additional Medical History: DVT, PE on coumadin - Past Surgical History Past Surgical History: Yes: AV Fistula/Graft (Right arm) - Alcohol/Substance Use Hx Alcohol Use: No History of Substance Use: reports: None - Smoking History Smoking history: Never smoked Have you smoked in the past 12 months: No Aproximately how many cigarettes per day: 10 If you are a former smoker, when did you quit?: couple months ago - Social History Usual Living Arrangement: With Parent ADL: Independent Occupation: unemployed History of Recent Travel: No Home Medications - Allergies Allergies/Adverse Reactions: Allergies Allergy/AdvReac Type Severity Reaction Status Date / Time lactose AdvReac Verified 11/23/17 15:55 - Home Medications Home Medications: Ambulatory Orders Losartan Potassium [Cozaar -] 100 mg PO DAILY 12/21/16 cloNIDine HCL [Catapres -] 0.3 mg PO TID 06/28/17 Pantoprazole Sodium [Protonix -] 20 mg PO DAILY #7 tablet.ec 08/30/17 Hydralazine HCl 100 mg PO TID 09/01/17 Collagenase Clostridium Hist. [Santyl -] 1 applic TP DAILY #1 tube 10/01/17 Insulin Detemir [Levemir Flextouch] 17 unit SQ BID #1 insuln.pen 10/01/17 Labetalol HCl [Normodyne -] 500 mg PO TID #225 tablet 10/01/17 Nifedipine ER [Procardia XL -] 90 mg PO DAILY #90 tab.er.24 10/01/17 Insulin Lispro [Humalog Kwikpen U-100] 100 unit SQ ASDIR #10 insuln.pen oxyCODONE HCL [Roxicodone -] 10 mg PO Q6H PRN #20 tablet MDD 4 10/29/17 Oxycodone HCl 10 mg PO Q6H PRN #15 tablet MDD 4 11/12/17 Amox-Tr/K Cl [Augmentin - 500Mg Tablet] 1 tab PO DAILY #4 tablet 11/30/17 Gabapentin [Neurontin -] 300 mg PO DAILY #30 capsule 11/30/17 Silver Sulfadiazine 1% Top Cr [Silvadene -] 1 applic TP DAILY #1 jar 11/30/17 Family Disease History - Family Disease History Family Disease History: Diabetes: Grandparent (HTN), Heart Disease: Grandparent , Other: Father (unknown), Mother (HTN) Review of Systems - Review of Systems Constitutional: reports: Weakness Eyes: reports: No Symptoms HENT: reports: No Symptoms Neck: reports: No Symptoms Cardiovascular: reports: No Symptoms Respiratory: reports: SOB, SOB on Exertion, Other Gastrointestinal: reports: No Symptoms Genitourinary: reports: No Symptoms Musculoskeletal: reports: No Symptoms Integumentary: reports: No Symptoms Neurological: reports: No Symptoms Endocrine: reports: No Symptoms Hematology/Lymphatic: reports: No Symptoms Psychiatric: reports: No Symptoms Physical Exam Vital Signs: Vital Signs Temperature 100.7 F H 11/24/17 09:00 Pulse Rate 89 11/24/17 14:00 Respiratory Rate 18 11/24/17 14:00 Blood Pressure 142/76 11/24/17 14:00 O2 Sat by Pulse Oximetry (%) 98 11/24/17 09:00 Constitutional: Yes: Calm, Other (weak) Eyes: Yes: Conjunctiva Clear Cardiovascular: Yes: Regular Rate and Rhythm Respiratory: Yes: On Nasal O2, Poor Air Entry, Rhonchi Gastrointestinal: Yes: Normal Bowel Sounds, Soft Musculoskeletal: Yes: WNL Extremities: Yes: Other Wound/Incision: Yes: Dressing Dry and Intact Neurological: Yes: Alert, Oriented Psychiatric: Yes: Alert, Oriented Labs: CBC, BMP 11/24/17 06:30 11/24/17 06:30 Imaging - Results Chest X-ray: Report Reviewed, Image Reviewed Assessment/Plan Problem List - Problems (1) Pneumonia Code(s): J18.9 - PNEUMONIA, UNSPECIFIED ORGANISM (2) Ulcer of right leg Code(s): L97.919 - NON-PRS CHRONIC ULC UNSP PRT OF R LOW LEG W UNSP SEVERITY (3) Cardiac arrest Code(s): I46.9 - CARDIAC ARREST, CAUSE UNSPECIFIED (4) Anemia Code(s): D64.9 - ANEMIA, UNSPECIFIED Qualifiers: Folate deficiency anemia type: dietary (5) ESRD (end stage renal disease) on dialysis Code(s): N18.6 - END STAGE RENAL DISEASE; Z99.2 - DEPENDENCE ON RENAL DIALYSIS (6) Gastroparesis Code(s): K31.84 - GASTROPARESIS (7) HTN (hypertension) Code(s): I10 - ESSENTIAL (PRIMARY) HYPERTENSION (8) SOB (shortness of breath) Code(s): R06.02 - SHORTNESS OF BREATH (10) Fluid overload Code(s): E87.70 - FLUID OVERLOAD, UNSPECIFIED (11) Anemia Code(s): D64.9 - ANEMIA, UNSPECIFIED plan await for all cx results will start on abx incentive aristides rest as per the team dialysis
--- NOTE | 2017-11-24 16:23 | CONS ---
DATE OF CONSULTATION: 11/24/2017 REFERRING PHYSICIAN: TAYLOR Casarez HISTORY OF PRESENT ILLNESS: The patients history is obtained from the chart. The patient is currently very drowsy. She is a 27-year-old black female known to me from previous hospitalizations with a past medical history of end-stage renal disease on hemodialysis 3 times weekly, left from the AV fistula, insulin-dependent diabetes, hypertension, PVD, atrial thrombus, cardiac arrest, recently hospitalized secondary to pneumonia, admitted to [facility] complaining of a 2-day history of shortness of breath, cough, congestion and weakness. The patient apparently missed hemodialysis the day prior to admission secondary to exhaustion. On the day of admission, she apparently went to hemodialysis and slept through most of it and was sent to the emergency room secondary to the above. The patient also complained feeling like she had a temperature the day prior to admission but did not actually take it. She has a cough with sputum but she does not spit it out. She recently completed an antibiotic course and was feeling well on a p.o. antibiotic until a couple of days prior to this admission. The patient also has a new right lower extremity calf wound. PAST MEDICAL HISTORY: End-stage renal disease on hemodialysis, hypertension, type 2 diabetes mellitus, history of PE, cardiac arrest, pneumonia, atrial thrombus, peripheral vascular disease, thrombus in the atrium and DVT. REVIEW OF SYSTEMS: Positive cough, positive chest congestion, and positive wheezing and positive shortness of breath. No chest pain, no palpitations. No abdominal pain. Positive right lower extremity pain and right lower extremity wound. CURRENT MEDICATIONS: 1. Tylenol. 2. Cozaar. 3. Vancomycin. 4. Heparin. 5. Diabetic Tussin. 6. Albuterol. 7. DuoNeb. 8. Catapres. 9. Procardia. 10. Novodyne. 11. Apresoline. 12. Normal saline. 13. NovoLog. 14. Roxicodone. 15. Protonix. 16. Santyl. PHYSICAL EXAMINATION: General: The patient is a well-developed, well-nourished female who is drowsy but in no acute respiratory distress. Vital Signs: She is febrile with a temperature of 100.7, blood pressure 112/64, respiratory rate is 18, and oxygen saturation is 98% on nasal cannula 2 L. HEENT: Normocephalic, atraumatic. Neck: Supple. Heart: Regular S1, S2. Chest: Crackles at the right base. Abdomen: Soft. Bowel sounds positive. Extremities: There is bilateral lower extremity edema with right greater than left with the right lower extremity wrapped. LABORATORY DATA: WBC 13, hemoglobin 7.6, hematocrit 24.1 with a platelet count of 590,000. INR is 1.5. Venous blood gas 7.33, PCO2 is 42 and PO2 is 61. Chemistries: BUN 56, creatinine 5.6, glucose 249, lactate 1.1, BNP of 16,801. Chest x-ray reveals moderate cardiomegaly and mild congestion atelectatic change with a possible infiltrate at the right base. IMPRESSION: 1. Respiratory distress and fever. Rule out pneumonia, right lower lobe. 2. Rule out possible wound infection. 3. End-stage renal disease on hemodialysis. 4. Insulin-dependent diabetes mellitus. 5. Pulmonary vascular congestion and congestive heart failure with fluid overload. 6. Right atrial thrombus. 7. History of deep venous thrombosis and pulmonary embolism. PLAN: Hemodialysis as per Renal. Obtain cultures. Broad-spectrum antibiotics. Follow up chest x-rays as well as possible CT scan of the chest. Supplemental oxygen to maintain oxygen saturations as well as inhaled bronchodilators. SAFIA BECERRA M.D. [id number]
[2017-11-24] MEDS ORDERED: PIPERACILLIN/TAZOBACTAM 2.25 GM VIAL IVPB ONE (17:06)
--- NOTE | 2017-11-24 17:13 | PN ---
Progress Note (short form) - Note Progress Note: Renal follow up for ESRD on HD This is 27 year old woman with hx of ESRD on HD, IDDM, PVD, Hypertension, Hx of Cardiac Arrest, Recent PNA presents with SOB and lethargy and found to have mild volume overload. Pt s/p dialysis on Wednesday w/o complication. Legs are very swollen. Pt is know not to be adherent to diet restrictions. No fever ro chills. Vital Signs Temperature 99.3 F 11/24/17 14:23 Pulse Rate 89 11/24/17 14:23 Respiratory Rate 20 11/24/17 14:23 Blood Pressure 142/76 11/24/17 14:23 O2 Sat by Pulse Oximetry (%) 98 11/24/17 09:00 Intake & Output 11/21/17 11/22/17 11/23/17 11/24/17 23:59 23:59 23:59 23:59 Intake Total 200 750 Balance 200 750 Weight 63.503 kg NAD alert MMM, No JVD Dec BS at lung bases + edema in LE CBC, BMP 11/24/17 06:30 11/24/17 06:30 Current Medications Acetaminophen (Tylenol -) 650 mg PO Q4H PRN PRN Reason: FEVER Last Admin: 11/24/17 12:08 Dose: 650 mg Albuterol Sulfate (Ventolin 0.083% Nebulizer Soln -) 1 amp NEB Q4H PRN PRN Reason: SHORT OF BREATH/WHEEZING Albuterol/Ipratropium (Duoneb -) 1 amp NEB RQID [facility] Last Admin: 11/24/17 16:28 Dose: 1 amp Clonidine (Catapres -) 0.3 mg PO TID [facility] Last Admin: 11/24/17 14:29 Dose: Not Given Collagenase (Santyl -) 1 applic TP DAILY [facility]; Protocol Last Admin: 11/24/17 09:48 Dose: 1 applic Guaifenesin (Diabetic Tussin Dm -) 10 ml PO Q6H PRN PRN Reason: COUGH Last Admin: 11/24/17 12:09 Dose: 10 ml Heparin Sodium (Porcine) (Heparin -) 5,000 unit SQ TID [facility] Last Admin: 11/24/17 14:53 Dose: Not Given Hydralazine HCl (Apresoline -) 100 mg PO TID [facility] Last Admin: 11/24/17 14:28 Dose: Not Given Sodium Chloride (Normal Saline -) 250 mls @ 3,000 mls/hr IV PRN PRN PRN Reason: Hypotension during Dialysis Stop: 11/25/17 12:10 Sodium Chloride (Normal Saline -) 250 mls @ 3,000 mls/hr IV PRN PRN PRN Reason: Hypotension during Dialysis Stop: 11/25/17 12:11 Piperacillin Sod/Tazobactam (Sod 2.25 gm/ Dextrose) 50 mls @ 100 mls/hr IVPB Q8H-IV [facility]; Protocol Insulin Aspart (Novolog Vial Sliding Scale -) 1 vial SQ ACHS [facility]; Protocol Last Admin: 11/24/17 17:04 Dose: Not Given Insulin Detemir (Levemir Vial) 17 units SQ BID@0700,2200 [facility] Last Admin: 11/24/17 06:02 Dose: 17 unit Labetalol HCl (Normodyne -) 500 mg PO TID [facility] Last Admin: 11/24/17 14:29 Dose: Not Given Losartan Potassium (Cozaar -) 100 mg PO DAILY [facility] Last Admin: 11/24/17 10:06 Dose: Not Given Nifedipine (Procardia Xl -) 90 mg PO DAILY [facility] Last Admin: 11/24/17 10:06 Dose: Not Given Oxycodone HCl (Roxicodone -) 10 mg PO Q6H PRN PRN Reason: PAIN LEVEL 4 - 6 Last Admin: 11/24/17 12:07 Dose: 10 mg Pantoprazole Sodium (Protonix -) 20 mg PO DAILY [facility] Last Admin: 11/24/17 09:48 Dose: 20 mg 27 year old woman with hx of ESRD on HD, IDDM, PVD, Hypertension, Hx of Cardiac Arrest, Recent PNA presents with SOB and lethargy and found to have mild volume overload. #ESRD on HD #Volume Overlaod #LE wounds #Hypertension #Chronic Anemia #DM on insulin s/p dialysis today as an inpatient will plan for additional UF tomorrow Trend CBC, will plan for PRBC transfusion if Hgb remains < 8 continue MACIE Continue Home BP meds Fluid restriction, renal diet Podiatry and ID follow up Nathan Vo DO
[2017-11-24] MEDS: PIPERACILLIN/TAZOB 2.25 GM 2.25 GM in DEXTROSE 5%-WATER - 50 ML IVPB SCH (17:40)
--- NOTE | 2017-11-24 20:18 | EKG ---
Test Reason : Blood Pressure : / mmHG Vent. Rate : 111 BPM Atrial Rate : 111 BPM P-R Int : 166 ms QRS Dur : 082 ms QT Int : 326 ms P-R-T Axes : 038 021 077 degrees QTc Int : 443 ms POOR DATA QUALITY, INTERPRETATION MAY BE ADVERSELY AFFECTED SINUS TACHYCARDIA POSSIBLE LEFT ATRIAL ENLARGEMENT POSSIBLE ANTERIOR INFARCT , AGE UNDETERMINED ABNORMAL ECG WHEN COMPARED WITH ECG OF 07-NOV-2017 05:23, T WAVE AMPLITUDE HAS INCREASED IN INFERIOR LEADS Confirmed by JOAQUINA KATZ MD ([id number]) on 11/24/2017 8:18:37 PM Referred By: Confirmed By:JOAQUINA KATZ MD
[2017-11-24] MEDS ORDERED: INSULIN (NOVOLOG) ASPART 100 UNITS/ML 10ML VIAL ONE (21:38)
[2017-11-25] MEDS ORDERED: PIPERACILLIN/TAZOBACTAM 2.25 GM VIAL IVPB ONE ×3 (00:08→17:51)
[2017-11-25] MEDS ORDERED: DEXTROSE 5%-WATER - 50 ML IVPB ONE ×3 (00:08→17:51)
[2017-11-25] MEDS ORDERED: diphenhydrAMINE HCL 25 MG CAPSULE (FP) PO ONE (00:15)
[2017-11-25] MEDS: PIPERACILLIN/TAZOB 2.25 GM 2.25 GM in DEXTROSE 5%-WATER - 50 ML IVPB SCH ×3 (01:48→18:00)
[2017-11-25] MEDS ORDERED: PT OWN MED DRAWER 7, Y5N ONE ×2 (04:55→06:19)
[2017-11-25] MEDS: hydrALAZINE HCL 50 MG TABLET (FP) PO SCH ×3 (05:06→22:03)
[2017-11-25] MEDS: HEPARIN NA (PORCINE) 5,000 UNITS/ML 1ML VIAL SQ SCH ×3 (05:06→22:08)
[2017-11-25] MEDS: cloNIDine HCL 0.1 MG TABLET PO SCH ×3 (05:06→22:04)
[2017-11-25] MEDS: LABETALOL HCL 200 MG TABLET (FP) PO SCH ×3 (05:06→22:04)
[2017-11-25] MEDS: oxyCODONE HCL 5 MG TABLET PO PRN ×3 (05:07→19:41)
[2017-11-25] MEDS: ACETAMINOPHEN 325 MG TABLET (FP) PO PRN ×2 (05:07→19:45)
[2017-11-25] MEDS: guaiFENesin/D-M SUGAR-FREE/ACLHOL-FREE 118 ML BOTTLE PO PRN (05:08)
[2017-11-25] MEDS: ALBUTEROL SO4 0.083% IH SOL 2.5 MG/3 ML VIAL.NEB. NEB PRN (05:20)
[2017-11-25] MEDS: INSULIN (LEVEMIR) 100 UNITS/ML UNITS SQ SCH (06:12)
[2017-11-25] MEDS: INSULIN SLIDING SCALE (NOVOLOG) 1 VIAL SQ SCH ×4 (06:12→22:07)
--- NOTE | 2017-11-25 08:55 | PN ---
Physical Exam: SUBJECTIVE: Patient seen and examined at the bedside. In no acute distress. Sitting up eating breakfast, states she still feels weak. OBJECTIVE: decreased oxygen to 3 liters NC from 4 liters, goal is to titrate down to 2 liters which is her home dose RLE edema, new leg ulcers, will doppler Period Temp Pulse Resp BP Sys/Ames Pulse Ox Last 24 Hr 98.1 F-100.7 F 79-93 18-20 112-150/64-80 98-98 GENERAL: The patient is awake, alert, and fully oriented, in no acute distress. HEAD: Normal with no signs of trauma. EYES: PERRL, extraocular movements intact, sclera anicteric, conjunctiva clear. No ptosis. ENT: Ears normal, nares patent, oropharynx clear without exudates, moist mucous membranes. NECK: Trachea midline, full range of motion, supple. LUNGS: expiratory wheezing throughout lung bentley, anteriorly and posterorly,on 4 liters of nasal cannula with stable stats, titrated down by me to 3 liters with goal of 2 liters with oxygen sats 92% or better. HEART: Regular rate and rhythm, S1, S2 without murmur, rub or gallop. ABDOMEN: Soft, nontender, nondistended, normoactive bowel sounds, no guarding, no rebound, no hepatosplenomegaly, no masses. EXTREMITIES: edematous right leg, dry, with wounds, seen by vascular NEUROLOGICAL: Normal speech, gait not observed. PSYCH: Normal mood, normal affect. Laboratory Results - last 24 hr 11/24/17 11/24/17 11/24/17 06:30 11:46 16:59 POC Glucometer 143 131 Total Bilirubin 0.4 Alkaline Phosphatase 958 H D Troponin I Total Protein 7.4 11/24/17 11/24/17 11/25/17 20:37 23:45 05:03 POC Glucometer 153 85 Total Bilirubin Alkaline Phosphatase Troponin I < 0.02 Total Protein Active Medications Generic Name Dose Route Start Last Admin Trade Name Freq PRN Reason Stop Dose Admin Acetaminophen 650 mg 11/23/17 18:37 11/25/17 05:07 Tylenol - PO 650 mg Q4H PRN Administration FEVER Albuterol Sulfate 1 amp 11/24/17 09:20 11/25/17 05:20 Ventolin 0.083% Nebulizer Soln - NEB 1 amp Q4H PRN Administration SHORT OF BREATH/WHEEZING Albuterol/Ipratropium 1 amp 11/24/17 16:00 11/24/17 20:41 Duoneb - NEB 1 amp RQID [facility] Administration Clonidine 0.3 mg 11/23/17 22:00 11/25/17 05:06 Catapres - PO Not Given TID [facility] Collagenase 1 applic 11/24/17 10:00 11/24/17 09:48 Santyl - TP 1 applic DAILY [facility] Administration Protocol Guaifenesin 10 ml 11/24/17 10:00 11/25/17 05:08 Diabetic Tussin Dm - PO 10 ml Q6H PRN Administration COUGH Heparin Sodium (Porcine) 5,000 unit 11/24/17 06:00 11/25/17 05:06 Heparin - SQ Not Given TID [facility] Hydralazine HCl 100 mg 11/23/17 22:00 11/25/17 05:06 Apresoline - PO Not Given TID [facility] Sodium Chloride 250 mls @ 3,000 mls/hr 11/24/17 12:11 Normal Saline - IV 11/25/17 12:10 PRN PRN Hypotension during Dialysis Sodium Chloride 250 mls @ 3,000 mls/hr 11/24/17 12:12 Normal Saline - IV 11/25/17 12:11 PRN PRN Hypotension during Dialysis Piperacillin Sod/Tazobactam 50 mls @ 100 mls/hr 11/24/17 18:00 11/25/17 01:48 Sod 2.25 gm/ Dextrose IVPB 100 mls/hr Q8H-IV [facility] Administration Protocol Sodium Chloride 250 mls @ 3,000 mls/hr 11/24/17 17:14 Normal Saline - IV 11/25/17 17:14 PRN PRN Hypotension during Dialysis Insulin Aspart 1 vial 11/23/17 22:00 11/25/17 06:12 Novolog Vial Sliding Scale - SQ Not Given ACHS [facility] Protocol Insulin Detemir 17 units 11/23/17 22:00 11/25/17 06:12 Levemir Vial SQ Not Given BID@0700,2200 [facility] Labetalol HCl 500 mg 11/23/17 22:00 11/25/17 05:06 Normodyne - PO Not Given TID [facility] Losartan Potassium 100 mg 11/24/17 10:00 11/24/17 10:06 Cozaar - PO Not Given DAILY [facility] Nifedipine 90 mg 11/24/17 10:00 11/24/17 10:06 Procardia Xl - PO Not Given DAILY [facility] Oxycodone HCl 10 mg 11/23/17 18:07 11/25/17 05:07 Roxicodone - PO 10 mg Q6H PRN Administration PAIN LEVEL 4 - 6 Pantoprazole Sodium 20 mg 11/24/17 10:00 11/24/17 09:48 Protonix - PO 20 mg DAILY [facility] Administration ASSESSMENT/PLAN: Patient is a 27 year old female with past medical history of of ESRD on dialysis , diabetes, hypertension, PVD, atrial thrombus and chronic respiratory failure ( on home oxygen). Patient presents to the [facility] for shortness of breath and increased weakness. Patient was recently discharged on 11/13/17 for pneumonia and completed IV antibiotics. She has chronic right foot ulcers and is s/p right 5th metatarsal head resection and now new ulcers on her right lower extremity with edema. Pulm: Pneumonia, acute Chronic Respiratory failure/home oxygen dependent On Zosyn. Monitor oxygen saturations to maintain goal of 92% on 2 liters. wean off to home dose as tolerated (currently on 4 liters). had scattered wheezing today: on duonebs. Monitor oxygen sats. Card: Hypertension: Controlled on labetalol tid, clonidine tid, hydralazine tid, procardia, cozaar PE history: on no anticoagulation. negative for DVT of RLE Endocrine: ESRD on dialysis: renal following. dialysis tomorrow. Endocrine: Diabetes: BGMs elevated, increased Levemir. On novolog. diabetic diet. Vascular Diabetic ulcers/Right foot wounds: continue daily wound care changes with santyl. Outpatient follow up at wound care clinic encouraged. fen tolerating PO monitor electrolytes diabetic diet prophy heparin full code Visit type - Emergency Visit Emergency Visit: Yes ED Registration Date: 11/23/17 Care time: The patient presented to the Emergency Department on the above date and was hospitalized for further evaluation of their emergent condition. - New Patient This patient is new to me today: Yes Date on this admission: 11/25/17 - Critical Care Critical Care patient: No - Discharge Referral Referred to [facility] No
[2017-11-25] MEDS: ALBUTEROL SO4 2.5/IPRATROPIUM 0.5 INH SOL 3 ML VIAL.NEB. NEB SCH ×4 (09:38→20:26)
[2017-11-25] MEDS: PANTOPRAZOLE 20 MG TABLET (FP) PO SCH (10:05)
[2017-11-25] MEDS: COLLAGENASE CLOSTRIDIUM HIST. 30 GRAMS TUBE TP SCH (10:05)
[2017-11-25 13:26] LABS: HEMATOCRIT 25.6 % (32.4-45.2); HEMOGLOBIN 8.2 GM/dL (10.7-15.3); MCH 27.2 pg (25.7-33.7); MCHC 32.1 g/dl (32.0-36.0); MEAN CELL VOLUME 84.7 fl (80-96); MEAN PLT VOLUME 8.1 fl (7.5-11.1); PLATELET COUNT 561 K/MM3 (134-434); RBC 3.02 M/mm3 (3.60-5.2); RDW 16.5 % (11.6-15.6); WHITE BLOOD COUNT 13.4 K/mm3 (4.0-10.0)
[2017-11-25 13:51] LABS: ALBUMIN 2.5 g/dl (3.4-5.0); ANION GAP 12 MMOL/L (8-16); BILIRUBIN,TOTAL 0.4 mg/dL (0.2-1.0); BLOOD UREA NITROGEN 24 mg/dL (7-18); CALCIUM 8.4 mg/dL (8.5-10.1); CHLORIDE 97 mmol/L (98-107); CO2 31 mmol/L (21-32); GLUCOSE,RANDOM 165 mg/dL (74-106); PHOSPHOROUS 4.9 mg/dL (2.5-4.9); POTASSIUM 3.7 mmol/L (3.5-5.1); SGOT/AST 17 U/L (15-37); SGPT/ALT < 6 U/L (12-78); SODIUM 140 mmol/L (136-145); TOT PROT 7.8 g/dl (6.4-8.2)
[2017-11-25 14:03] LABS: ALK PHOS 962 U/L (45-117)
[2017-11-25] MEDS: LOSARTAN POTASSIUM 50 MG TABLET (FP) PO SCH (14:56)
[2017-11-25] MEDS: NIFEdipine E.R. 90 MG TABLET (FP) PO SCH (14:56)
--- NOTE | 2017-11-25 15:40 | EKG ---
Test Reason : Blood Pressure : / mmHG Vent. Rate : 089 BPM Atrial Rate : 089 BPM P-R Int : 180 ms QRS Dur : 084 ms QT Int : 358 ms P-R-T Axes : 033 -11 083 degrees QTc Int : 435 ms NORMAL SINUS RHYTHM LOW VOLTAGE QRS BORDERLINE ECG WHEN COMPARED WITH ECG OF 23-NOV-2017 17:36, NO SIGNIFICANT CHANGE WAS FOUND Confirmed by Elaine Romero ([id number]) on 11/25/2017 3:40:21 PM Referred By: Confirmed By:Elaine Romero
--- NOTE | 2017-11-25 15:56 | PN ---
Progress Note, Physician History of Present Illness: improving being dialysed breathing better - Current Medication List Current Medications: Active Medications Acetaminophen (Tylenol -) 650 mg PO Q4H PRN PRN Reason: FEVER Last Admin: 11/25/17 05:07 Dose: 650 mg Albuterol Sulfate (Ventolin 0.083% Nebulizer Soln -) 1 amp NEB Q4H PRN PRN Reason: SHORT OF BREATH/WHEEZING Last Admin: 11/25/17 05:20 Dose: 1 amp Albuterol/Ipratropium (Duoneb -) 1 amp NEB RQID [facility] Last Admin: 11/25/17 12:47 Dose: 1 amp Clonidine (Catapres -) 0.3 mg PO TID [facility] Last Admin: 11/25/17 14:57 Dose: Not Given Collagenase (Santyl -) 1 applic TP DAILY [facility]; Protocol Last Admin: 11/25/17 10:05 Dose: 1 applic Guaifenesin (Diabetic Tussin Dm -) 10 ml PO Q6H PRN PRN Reason: COUGH Last Admin: 11/25/17 05:08 Dose: 10 ml Heparin Sodium (Porcine) (Heparin -) 5,000 unit SQ TID [facility] Last Admin: 11/25/17 14:57 Dose: Not Given Hydralazine HCl (Apresoline -) 100 mg PO TID [facility] Last Admin: 11/25/17 14:56 Dose: Not Given Piperacillin Sod/Tazobactam (Sod 2.25 gm/ Dextrose) 50 mls @ 100 mls/hr IVPB Q8H-IV [facility]; Protocol Last Admin: 11/25/17 10:05 Dose: 100 mls/hr Sodium Chloride (Normal Saline -) 250 mls @ 3,000 mls/hr IV PRN PRN PRN Reason: Hypotension during Dialysis Stop: 11/25/17 17:14 Insulin Aspart (Novolog Vial Sliding Scale -) 1 vial SQ ACHS [facility]; Protocol Last Admin: 11/25/17 12:08 Dose: Not Given Insulin Detemir (Levemir Vial) 17 units SQ BID@0700,2200 [facility] Last Admin: 11/25/17 06:12 Dose: Not Given Labetalol HCl (Normodyne -) 500 mg PO TID [facility] Last Admin: 11/25/17 14:57 Dose: Not Given Losartan Potassium (Cozaar -) 100 mg PO DAILY [facility] Last Admin: 11/25/17 14:56 Dose: Not Given Nifedipine (Procardia Xl -) 90 mg PO DAILY [facility] Last Admin: 11/25/17 14:56 Dose: Not Given Oxycodone HCl (Roxicodone -) 10 mg PO Q6H PRN PRN Reason: PAIN LEVEL 4 - 6 Last Admin: 11/25/17 12:13 Dose: 10 mg Pantoprazole Sodium (Protonix -) 20 mg PO DAILY [facility] Last Admin: 11/25/17 10:05 Dose: 20 mg - Objective Vital Signs: Vital Signs Temperature 99.2 F 11/25/17 14:12 Pulse Rate 99 H 11/25/17 14:12 Respiratory Rate 18 11/25/17 14:12 Blood Pressure 136/81 11/25/17 14:12 O2 Sat by Pulse Oximetry (%) 98 11/25/17 10:00 Constitutional: Yes: Calm, Mild Distress Cardiovascular: Yes: Regular Rate and Rhythm Respiratory: Yes: Poor Air Entry, Rhonchi Gastrointestinal: Yes: Normal Bowel Sounds, Soft Musculoskeletal: Yes: WNL Extremities: Yes: WNL Wound/Incision: Yes: Dressing Dry and Intact Neurological: Yes: Alert, Oriented Psychiatric: Yes: Alert, Oriented Labs: CBC, BMP 11/25/17 13:00 11/25/17 13:00 INR, PTT INR 1.50 (0.83-1.09) H 11/23/17 16:18 Assessment/Plan Problem List - Problems (1) Pneumonia Code(s): J18.9 - PNEUMONIA, UNSPECIFIED ORGANISM (2) Ulcer of right leg Code(s): L97.919 - NON-PRS CHRONIC ULC UNSP PRT OF R LOW LEG W UNSP SEVERITY (3) Cardiac arrest Code(s): I46.9 - CARDIAC ARREST, CAUSE UNSPECIFIED (4) Anemia Code(s): D64.9 - ANEMIA, UNSPECIFIED Qualifiers: Folate deficiency anemia type: dietary (5) ESRD (end stage renal disease) on dialysis Code(s): N18.6 - END STAGE RENAL DISEASE; Z99.2 - DEPENDENCE ON RENAL DIALYSIS (6) Gastroparesis Code(s): K31.84 - GASTROPARESIS (7) HTN (hypertension) Code(s): I10 - ESSENTIAL (PRIMARY) HYPERTENSION (8) SOB (shortness of breath) Code(s): R06.02 - SHORTNESS OF BREATH (10) Fluid overload Code(s): E87.70 - FLUID OVERLOAD, UNSPECIFIED (11) Anemia Code(s): D64.9 - ANEMIA, UNSPECIFIED plan continue abx patient improving rest as per the team repeat xray
--- NOTE | 2017-11-25 16:02 | PN ---
Progress Note (short form) - Note Progress Note: Breathing a little better today. O2 requirement back down to 2 L NC O2, saturation 98%. No acute events overnight. Intake & Output 11/22/17 11/23/17 11/24/17 11/25/17 23:59 23:59 23:59 23:59 Intake Total 486 159 5803 Balance 475 650 1082 Weight 140 lb 140 lb Last Vital Signs Temp Pulse Resp BP Pulse Ox 99.2 F 99 H 18 136/81 98 11/25/17 14:12 11/25/17 14:12 11/25/17 14:12 11/25/17 14:12 11/25/17 10:00 Active Medications Acetaminophen (Tylenol -) 650 mg PO Q4H PRN PRN Reason: FEVER Last Admin: 11/25/17 05:07 Dose: 650 mg Albuterol Sulfate (Ventolin 0.083% Nebulizer Soln -) 1 amp NEB Q4H PRN PRN Reason: SHORT OF BREATH/WHEEZING Last Admin: 11/25/17 05:20 Dose: 1 amp Albuterol/Ipratropium (Duoneb -) 1 amp NEB RQID [facility] Last Admin: 11/25/17 12:47 Dose: 1 amp Clonidine (Catapres -) 0.3 mg PO TID [facility] Last Admin: 11/25/17 14:57 Dose: Not Given Collagenase (Santyl -) 1 applic TP DAILY [facility]; Protocol Last Admin: 11/25/17 10:05 Dose: 1 applic Guaifenesin (Diabetic Tussin Dm -) 10 ml PO Q6H PRN PRN Reason: COUGH Last Admin: 11/25/17 05:08 Dose: 10 ml Heparin Sodium (Porcine) (Heparin -) 5,000 unit SQ TID [facility] Last Admin: 11/25/17 14:57 Dose: Not Given Hydralazine HCl (Apresoline -) 100 mg PO TID [facility] Last Admin: 11/25/17 14:56 Dose: Not Given Piperacillin Sod/Tazobactam (Sod 2.25 gm/ Dextrose) 50 mls @ 100 mls/hr IVPB Q8H-IV [facility]; Protocol Last Admin: 11/25/17 10:05 Dose: 100 mls/hr Sodium Chloride (Normal Saline -) 250 mls @ 3,000 mls/hr IV PRN PRN PRN Reason: Hypotension during Dialysis Stop: 11/25/17 17:14 Insulin Aspart (Novolog Vial Sliding Scale -) 1 vial SQ ACHS [facility]; Protocol Last Admin: 11/25/17 12:08 Dose: Not Given Insulin Detemir (Levemir Vial) 17 units SQ BID@0700,2200 [facility] Last Admin: 11/25/17 06:12 Dose: Not Given Labetalol HCl (Normodyne -) 500 mg PO TID [facility] Last Admin: 11/25/17 14:57 Dose: Not Given Losartan Potassium (Cozaar -) 100 mg PO DAILY [facility] Last Admin: 11/25/17 14:56 Dose: Not Given Nifedipine (Procardia Xl -) 90 mg PO DAILY [facility] Last Admin: 11/25/17 14:56 Dose: Not Given Oxycodone HCl (Roxicodone -) 10 mg PO Q6H PRN PRN Reason: PAIN LEVEL 4 - 6 Last Admin: 11/25/17 12:13 Dose: 10 mg Pantoprazole Sodium (Protonix -) 20 mg PO DAILY [facility] Last Admin: 11/25/17 10:05 Dose: 20 mg GENERAL: awake, alert, NAD HEAD: Normal with no signs of trauma. EYES: sclera anicteric, conjunctiva clear. ENT: Ears normal, nares patent, oropharynx clear without exudates, moist mucous membranes. NECK: Trachea midline, full range of motion, supple. LUNGS: bilateral expiratory wheezing / rhonchi. HEART: Regular rate and rhythm, S1, S2 without murmur, rub or gallop. ABDOMEN: Soft, nontender, nondistended, normoactive bowel sounds, no guarding, no rebound, no hepatosplenomegaly, no masses. EXTREMITIES: (+) edema NEUROLOGICAL: Non-focal PSYCH: Normal mood, normal affect. Laboratory Results - last 24 hr 11/24/17 11/24/17 11/24/17 16:59 20:37 23:45 WBC RBC Hgb Hct MCV MCH MCHC RDW Plt Count MPV Sodium Potassium Chloride Carbon Dioxide Anion Gap BUN Creatinine Creat Clearance w eGFR POC Glucometer 131 153 Random Glucose Calcium Phosphorus Total Bilirubin AST ALT Alkaline Phosphatase Troponin I < 0.02 Total Protein Albumin Blood Type Antibody Screen 11/25/17 11/25/17 11/25/17 05:03 12:03 13:00 WBC 13.4 H RBC 3.02 L Hgb 8.2 L Hct 25.6 L MCV 84.7 MCH 27.2 MCHC 32.1 RDW 16.5 H Plt Count 561 H MPV 8.1 Sodium Potassium Chloride Carbon Dioxide Anion Gap BUN Creatinine Creat Clearance w eGFR POC Glucometer 85 151 Random Glucose Calcium Phosphorus Total Bilirubin AST ALT Alkaline Phosphatase Troponin I Total Protein Albumin Blood Type Antibody Screen 11/25/17 11/25/17 13:00 13:00 WBC RBC Hgb Hct MCV MCH MCHC RDW Plt Count MPV Sodium 140 Potassium 3.7 Chloride 97 L Carbon Dioxide 31 Anion Gap 12 BUN 24 H D Creatinine 4.0 H Creat Clearance w eGFR 13.33 POC Glucometer Random Glucose 165 H Calcium 8.4 L Phosphorus 4.9 Total Bilirubin 0.4 AST 17 ALT < 6 L Alkaline Phosphatase 962 H Troponin I Total Protein 7.8 Albumin 2.5 L Blood Type B POSITIVE Antibody Screen Negative Problem List - Problems (1) Pneumonia Code(s): J18.9 - PNEUMONIA, UNSPECIFIED ORGANISM (2) Ulcer of right leg Code(s): L97.919 - NON-PRS CHRONIC ULC UNSP PRT OF R LOW LEG W UNSP SEVERITY (3) Cardiac arrest Code(s): I46.9 - CARDIAC ARREST, CAUSE UNSPECIFIED (4) Anemia Code(s): D64.9 - ANEMIA, UNSPECIFIED Qualifiers: Folate deficiency anemia type: dietary (5) ESRD (end stage renal disease) on dialysis Code(s): N18.6 - END STAGE RENAL DISEASE; Z99.2 - DEPENDENCE ON RENAL DIALYSIS (6) Gastroparesis Code(s): K31.84 - GASTROPARESIS (7) HTN (hypertension) Code(s): I10 - ESSENTIAL (PRIMARY) HYPERTENSION (8) SOB (shortness of breath) Code(s): R06.02 - SHORTNESS OF BREATH (10) Fluid overload Code(s): E87.70 - FLUID OVERLOAD, UNSPECIFIED (11) Anemia Code(s): D64.9 - ANEMIA, UNSPECIFIED IMP ACUTE RESPIRATORY DISTRESS PNEUMONIA CHF/FLUID OVERLOAD ESRD ON HD ATRIAL THROMBUS IDDM H/O DVT/PE RLE WOUND H/O CARDIAC ARREST PLAN ABX PER ID INHALED BRONCHODILATORS O2 TO MAINTAIN FOLLOW CULTURES WOUND CARE HD PER RENAL GLYCEMIC CONTROL DR SCOTT
--- NOTE | 2017-11-25 17:32 | PN ---
Progress Note (short form) - Note Progress Note: Renal follow up for ESRD on HD Pt seen and examined at the bedside awake and alert no sob at the present time feels fatigued has dizzziness refusing dialysis/UF today Vital Signs Temperature 99.2 F 11/25/17 14:12 Pulse Rate 99 H 11/25/17 14:12 Respiratory Rate 18 11/25/17 14:12 Blood Pressure 136/81 11/25/17 14:12 O2 Sat by Pulse Oximetry (%) 98 11/25/17 10:00 Intake & Output 11/22/17 11/23/17 11/24/17 11/25/17 23:59 23:59 23:59 23:59 Intake Total 285 719 4023 Balance 449 132 0330 Weight 63.503 kg 63.503 kg NAD alert MMM, No JVD Dec BS at lung bases + edema in LE CBC, BMP 11/25/17 13:00 11/25/17 13:00 Current Medications Acetaminophen (Tylenol -) 650 mg PO Q4H PRN PRN Reason: FEVER Last Admin: 11/25/17 05:07 Dose: 650 mg Albuterol Sulfate (Ventolin 0.083% Nebulizer Soln -) 1 amp NEB Q4H PRN PRN Reason: SHORT OF BREATH/WHEEZING Last Admin: 11/25/17 05:20 Dose: 1 amp Albuterol/Ipratropium (Duoneb -) 1 amp NEB RQID [facility] Last Admin: 11/25/17 12:47 Dose: 1 amp Clonidine (Catapres -) 0.3 mg PO TID [facility] Last Admin: 11/25/17 14:57 Dose: Not Given Collagenase (Santyl -) 1 applic TP DAILY [facility]; Protocol Last Admin: 11/25/17 10:05 Dose: 1 applic Guaifenesin (Diabetic Tussin Dm -) 10 ml PO Q6H PRN PRN Reason: COUGH Last Admin: 11/25/17 05:08 Dose: 10 ml Heparin Sodium (Porcine) (Heparin -) 5,000 unit SQ TID [facility] Last Admin: 11/25/17 14:57 Dose: Not Given Hydralazine HCl (Apresoline -) 100 mg PO TID [facility] Last Admin: 11/25/17 14:56 Dose: Not Given Piperacillin Sod/Tazobactam (Sod 2.25 gm/ Dextrose) 50 mls @ 100 mls/hr IVPB Q8H-IV [facility]; Protocol Last Admin: 11/25/17 10:05 Dose: 100 mls/hr Sodium Chloride (Normal Saline -) 250 mls @ 3,000 mls/hr IV PRN PRN PRN Reason: Hypotension during Dialysis Stop: 11/25/17 17:14 Insulin Aspart (Novolog Vial Sliding Scale -) 1 vial SQ ACHS [facility]; Protocol Last Admin: 11/25/17 12:08 Dose: Not Given Insulin Detemir (Levemir Vial) 17 units SQ BID@0700,2200 [facility] Last Admin: 11/25/17 06:12 Dose: Not Given Labetalol HCl (Normodyne -) 500 mg PO TID [facility] Last Admin: 11/25/17 14:57 Dose: Not Given Losartan Potassium (Cozaar -) 100 mg PO DAILY [facility] Last Admin: 11/25/17 14:56 Dose: Not Given Nifedipine (Procardia Xl -) 90 mg PO DAILY [facility] Last Admin: 11/25/17 14:56 Dose: Not Given Oxycodone HCl (Roxicodone -) 10 mg PO Q6H PRN PRN Reason: PAIN LEVEL 4 - 6 Last Admin: 11/25/17 12:13 Dose: 10 mg Pantoprazole Sodium (Protonix -) 20 mg PO DAILY [facility] Last Admin: 11/25/17 10:05 Dose: 20 mg 27 year old woman with hx of ESRD on HD, IDDM, PVD, Hypertension, Hx of Cardiac Arrest, Recent PNA presents with SOB and lethargy and found to have mild volume overload. #ESRD on HD #Volume Overlaod #LE wounds #Hypertension #Chronic Anemia #DM on insulin pt wishes to defer dialysis to tomorrow no acute SOB/Hyperkalemia so can defer to tomorrow will plan 4 hour HD tomorrow with UF as tolerated Continue High Dose MACIE with HD Abx as per ID Continue present BP meds Nathan Vo DO
[2017-11-25] MEDS ORDERED: INSULIN (LEVEMIR) 100 UNITS/ML UNITS SQ SCH (22:00)
[2017-11-25 23:48] LABS: HEMATOCRIT 25.6 % (32.4-45.2); HEMOGLOBIN 8.2 GM/dL (10.7-15.3); MCH 27.3 pg (25.7-33.7); MEAN CELL VOLUME 85.3 fl (80-96); MEAN PLT VOLUME 8.2 fl (7.5-11.1); PLATELET COUNT 561 K/MM3 (134-434); RBC 3.01 M/mm3 (3.60-5.2); RDW 16.6 % (11.6-15.6); WHITE BLOOD COUNT 12.7 K/mm3 (4.0-10.0)
[2017-11-26] MEDS ORDERED: PIPERACILLIN/TAZOBACTAM 2.25 GM VIAL IVPB ONE ×3 (01:21→16:56)
[2017-11-26] MEDS ORDERED: DEXTROSE 5%-WATER - 50 ML IVPB ONE ×3 (01:21→16:56)
[2017-11-26] MEDS: PIPERACILLIN/TAZOB 2.25 GM 2.25 GM in DEXTROSE 5%-WATER - 50 ML IVPB SCH ×3 (01:47→17:54)
[2017-11-26] MEDS: guaiFENesin/D-M SUGAR-FREE/ACLHOL-FREE 118 ML BOTTLE PO PRN (01:54)
[2017-11-26] MEDS: oxyCODONE HCL 5 MG TABLET PO PRN ×3 (02:27→20:36)
[2017-11-26] MEDS: ACETAMINOPHEN 325 MG TABLET (FP) PO PRN ×3 (02:28→20:31)
[2017-11-26] MEDS: INSULIN SLIDING SCALE (NOVOLOG) 1 VIAL SQ SCH ×4 (06:21→22:48)
[2017-11-26] MEDS: cloNIDine HCL 0.1 MG TABLET PO SCH ×3 (06:22→21:34)
[2017-11-26] MEDS: HEPARIN NA (PORCINE) 5,000 UNITS/ML 1ML VIAL SQ SCH ×3 (06:22→21:56)
[2017-11-26] MEDS: hydrALAZINE HCL 50 MG TABLET (FP) PO SCH ×3 (06:22→21:56)
[2017-11-26] MEDS: LABETALOL HCL 200 MG TABLET (FP) PO SCH ×3 (06:22→21:56)
[2017-11-26] MEDS: ALBUTEROL SO4 2.5/IPRATROPIUM 0.5 INH SOL 3 ML VIAL.NEB. NEB SCH ×4 (07:00→20:24)
[2017-11-26] MEDS: INSULIN (LEVEMIR) 100 UNITS/ML UNITS SQ SCH ×2 (08:24→22:47)
[2017-11-26] MEDS: PANTOPRAZOLE 20 MG TABLET (FP) PO SCH (09:41)
[2017-11-26] MEDS: COLLAGENASE CLOSTRIDIUM HIST. 30 GRAMS TUBE TP SCH (09:42)
[2017-11-26] MEDS: NIFEdipine E.R. 90 MG TABLET (FP) PO SCH (09:42)
[2017-11-26] MEDS: LOSARTAN POTASSIUM 50 MG TABLET (FP) PO SCH (09:42)
--- NOTE | 2017-11-26 09:56 | PN ---
Physical Exam: SUBJECTIVE: Patient seen and examined. Pt states she is feeling better, however she mostly been sleeping. Events: - AM BGM 56 - OBJECTIVE: Vital Signs Period Temp Pulse Resp BP Sys/Ames Pulse Ox Last 24 Hr 97.8 F-99.2 F 87-99 16-20 128-153/74-97 98-98 PE Neuro: alert, awake, cn 2-12intact Pulm: basilar rhonchi + nc CV: s1 s2 rrr 3/6 murmur Abd: s nd nt +bs Ext: RLE dressing in tact +3 edema Laboratory Results - last 24 hr 11/25/17 11/26/17 11/26/17 23:05 04:08 06:20 WBC 12.7 H RBC 3.01 L Hgb 8.2 L Hct 25.6 L MCV 85.3 MCH 27.3 MCHC 32.0 RDW 16.6 H Plt Count 561 H MPV 8.2 Sodium Potassium Chloride Carbon Dioxide Anion Gap BUN Creatinine Creat Clearance w eGFR POC Glucometer 56 106 Random Glucose Calcium Phosphorus Total Bilirubin AST ALT Alkaline Phosphatase Total Protein Albumin Blood Type Antibody Screen Active Medications Generic Name Dose Route Start Last Admin Trade Name Freq PRN Reason Stop Dose Admin Acetaminophen 650 mg 11/23/17 18:37 11/26/17 02:28 Tylenol - PO 650 mg Q4H PRN Administration FEVER Albuterol Sulfate 1 amp 11/24/17 09:20 11/25/17 05:20 Ventolin 0.083% Nebulizer Soln - NEB 1 amp Q4H PRN Administration SHORT OF BREATH/WHEEZING Albuterol/Ipratropium 1 amp 11/24/17 16:00 11/26/17 07:00 Duoneb - NEB 1 amp RQID ROSA [facility]IA Administration Clonidine 0.3 mg 11/23/17 22:00 11/26/17 06:22 Catapres - PO 0.3 mg TID ROSA [facility]IA Administration Collagenase 1 applic 11/24/17 10:00 11/26/17 09:42 Santyl - TP 1 applic DAILY [facility] Administration Protocol Epoetin Abiel 20,000 unit 11/26/17 06:00 Epogen - IVPUSH 11/26/17 06:01 ONCE ONE Guaifenesin 10 ml 11/24/17 10:00 11/26/17 01:54 Diabetic Tussin Dm - PO 10 ml Q6H PRN Administration COUGH Heparin Sodium (Porcine) 5,000 unit 11/24/17 06:00 11/26/17 06:22 Heparin - SQ Not Given TID [facility] Hydralazine HCl 100 mg 11/23/17 22:00 11/26/17 06:22 Apresoline - PO Not Given TID [facility] Piperacillin Sod/Tazobactam 50 mls @ 100 mls/hr 11/24/17 18:00 11/26/17 09:42 Sod 2.25 gm/ Dextrose IVPB 100 mls/hr Q8H-IV [facility] Administration Protocol Sodium Chloride 250 mls @ 3,000 mls/hr 11/24/17 17:14 Normal Saline - IV 11/25/17 17:14 PRN PRN Hypotension during Dialysis Sodium Chloride 250 mls @ 3,000 mls/hr 11/25/17 17:33 Normal Saline - IV 11/26/17 17:33 PRN PRN Hypotension during Dialysis Insulin Aspart 1 vial 11/23/17 22:00 11/26/17 06:21 Novolog Vial Sliding Scale - SQ Not Given ACHS [facility] Protocol Insulin Detemir 10 units 11/25/17 22:37 Levemir Vial SQ BID@0700,2200 [facility] Labetalol HCl 500 mg 11/23/17 22:00 11/26/17 06:22 Normodyne - PO Not Given TID [facility] Losartan Potassium 100 mg 11/24/17 10:00 11/26/17 09:42 Cozaar - PO Not Given DAILY [facility] Nifedipine 90 mg 11/24/17 10:00 11/26/17 09:42 Procardia Xl - PO Not Given DAILY [facility] Oxycodone HCl 10 mg 11/23/17 18:07 11/26/17 09:40 Roxicodone - PO 10 mg Q6H PRN Administration PAIN LEVEL 4 - 6 Pantoprazole Sodium 20 mg 11/24/17 10:00 11/26/17 09:41 Protonix - PO 20 mg DAILY [facility] Administration Microbiology 11/23/17 16:45 Blood Culture - Preliminary Blood - Peripheral Venous NO GROWTH OBTAINED AFTER 48 HOURS, INCUBATION TO CONTINUE FOR 3 DAYS. 11/23/17 16:18 Blood Culture - Preliminary Blood - Peripheral Venous NO GROWTH OBTAINED AFTER 48 HOURS, INCUBATION TO CONTINUE FOR 3 DAYS. 08/21/18 17:55 Gram Stain - Final Wound Wound Culture - Preliminary Staphylococcus Coagulase Neg Assessment: 27 year old female with a history of ESRD, type 1 DM, HTN, PAD, chronic hypoxic respiratory failure, PE, anemia who presented to the ED with SOB and cough. Plan: 1. Sepsis secondary to pneumonia - Afebrile - Continue zosyn per ID - Leukocytosis improving - BC neg 2. ESRD - HD today per Renal 3. HTN - Controlled - Continue Clonidine, Hydralazine, Procardia XL, Cozaar, Labetalol 4. Type 1 DM - Continue Levemir, Novolog sliding scale 5. Chronic hypoxic respiratory failure - Continue oxygen 6. Reactive thrombocytosis - Plts downtrended 7. Right foot diabetic ulcer - Continue wound care with Santyl 8. History of PE 9. Anemia secondary to ESRD - Continue Epogen Problem List - Problems (1) Pneumonia Code(s): J18.9 - PNEUMONIA, UNSPECIFIED ORGANISM (2) Ulcer of right leg Code(s): L97.919 - NON-PRS CHRONIC ULC UNSP PRT OF R LOW LEG W UNSP SEVERITY (3) Anemia Code(s): D64.9 - ANEMIA, UNSPECIFIED Qualifiers: Folate deficiency anemia type: dietary (4) Diabetes mellitus, insulin dependent (IDDM), uncontrolled Code(s): E10.65 - TYPE 1 DIABETES MELLITUS WITH HYPERGLYCEMIA (5) ESRD (end stage renal disease) on dialysis Code(s): N18.6 - END STAGE RENAL DISEASE; Z99.2 - DEPENDENCE ON RENAL DIALYSIS Visit type - Emergency Visit Emergency Visit: Yes ED Registration Date: 11/23/17 Care time: The patient presented to the Emergency Department on the above date and was hospitalized for further evaluation of their emergent condition. - New Patient This patient is new to me today: No - Critical Care Critical Care patient: No
--- NOTE | 2017-11-26 11:57 | PN ---
Progress Note, Physician History of Present Illness: pulmonary alert,feeling better,less dyspnea - Current Medication List Current Medications: Active Medications Acetaminophen (Tylenol -) 650 mg PO Q4H PRN PRN Reason: FEVER Last Admin: 11/26/17 10:34 Dose: 650 mg Albuterol Sulfate (Ventolin 0.083% Nebulizer Soln -) 1 amp NEB Q4H PRN PRN Reason: SHORT OF BREATH/WHEEZING Last Admin: 11/25/17 05:20 Dose: 1 amp Albuterol/Ipratropium (Duoneb -) 1 amp NEB RQID [facility] Last Admin: 11/26/17 11:27 Dose: 1 amp Clonidine (Catapres -) 0.3 mg PO TID [facility] Last Admin: 11/26/17 06:22 Dose: 0.3 mg Collagenase (Santyl -) 1 applic TP DAILY [facility]; Protocol Last Admin: 11/26/17 09:42 Dose: 1 applic Epoetin Abiel (Epogen -) 20,000 unit IVPUSH ONCE ONE Stop: 11/26/17 06:01 Guaifenesin (Diabetic Tussin Dm -) 10 ml PO Q6H PRN PRN Reason: COUGH Last Admin: 11/26/17 01:54 Dose: 10 ml Heparin Sodium (Porcine) (Heparin -) 5,000 unit SQ TID [facility] Last Admin: 11/26/17 06:22 Dose: Not Given Hydralazine HCl (Apresoline -) 100 mg PO TID [facility] Last Admin: 11/26/17 06:22 Dose: Not Given Piperacillin Sod/Tazobactam (Sod 2.25 gm/ Dextrose) 50 mls @ 100 mls/hr IVPB Q8H-IV [facility]; Protocol Last Admin: 11/26/17 09:42 Dose: 100 mls/hr Sodium Chloride (Normal Saline -) 250 mls @ 3,000 mls/hr IV PRN PRN PRN Reason: Hypotension during Dialysis Stop: 11/25/17 17:14 Sodium Chloride (Normal Saline -) 250 mls @ 3,000 mls/hr IV PRN PRN PRN Reason: Hypotension during Dialysis Stop: 11/26/17 17:33 Insulin Aspart (Novolog Vial Sliding Scale -) 1 vial SQ ACHS [facility]; Protocol Last Admin: 11/26/17 06:21 Dose: Not Given Insulin Detemir (Levemir Vial) 10 units SQ BID@0700,2200 [facility] Labetalol HCl (Normodyne -) 500 mg PO TID [facility] Last Admin: 11/26/17 06:22 Dose: Not Given Losartan Potassium (Cozaar -) 100 mg PO DAILY [facility] Last Admin: 11/26/17 09:42 Dose: Not Given Nifedipine (Procardia Xl -) 90 mg PO DAILY [facility] Last Admin: 11/26/17 09:42 Dose: Not Given Oxycodone HCl (Roxicodone -) 10 mg PO Q6H PRN PRN Reason: PAIN LEVEL 4 - 6 Last Admin: 11/26/17 09:40 Dose: 10 mg Pantoprazole Sodium (Protonix -) 20 mg PO DAILY [facility] Last Admin: 11/26/17 09:41 Dose: 20 mg - Objective Vital Signs: Vital Signs Temperature 97.9 F 11/26/17 09:00 Pulse Rate 89 11/26/17 09:00 Respiratory Rate 19 11/26/17 09:00 Blood Pressure 143/86 11/26/17 09:00 O2 Sat by Pulse Oximetry (%) 98 11/26/17 10:00 Constitutional: Yes: Well Nourished, Calm Eyes: Yes: WNL HENT: Yes: WNL Neck: Yes: WNL Cardiovascular: Yes: Regular Rate and Rhythm, S1, S2 Respiratory: Yes: Wheezes (scattered wheezes) Gastrointestinal: Yes: Normal Bowel Sounds, Soft Extremities: Yes: WNL Edema: Yes Labs: Problem List - Problems (1) Pneumonia Code(s): J18.9 - PNEUMONIA, UNSPECIFIED ORGANISM (2) Ulcer of right leg Code(s): L97.919 - NON-PRS CHRONIC ULC UNSP PRT OF R LOW LEG W UNSP SEVERITY (3) Cardiac arrest Code(s): I46.9 - CARDIAC ARREST, CAUSE UNSPECIFIED (4) Anemia Code(s): D64.9 - ANEMIA, UNSPECIFIED Qualifiers: Folate deficiency anemia type: dietary (5) ESRD (end stage renal disease) on dialysis Code(s): N18.6 - END STAGE RENAL DISEASE; Z99.2 - DEPENDENCE ON RENAL DIALYSIS (6) Gastroparesis Code(s): K31.84 - GASTROPARESIS (7) HTN (hypertension) Code(s): I10 - ESSENTIAL (PRIMARY) HYPERTENSION (8) SOB (shortness of breath) Code(s): R06.02 - SHORTNESS OF BREATH (10) Fluid overload Code(s): E87.70 - FLUID OVERLOAD, UNSPECIFIED (11) Anemia Code(s): D64.9 - ANEMIA, UNSPECIFIED Assessment/Plan IMP ACUTE RESPIRATORY DISTRESS IMPROVED PNEUMONIA CHF/FLUID OVERLOAD ESRD ON HD ATRIAL THROMBUS IDDM H/O DVT/PE RLE WOUND H/O CARDIAC ARREST PLAN ABX PER ID INHALED BRONCHODILATORS' O2 F/U CHEST X-RAY WOUND CARE HD PER RENAL GLYCEMIC CONTROL DR BECERRA Problem List - Problems (1) Pneumonia Code(s): J18.9 - PNEUMONIA, UNSPECIFIED ORGANISM (2) Ulcer of right leg Code(s): L97.919 - NON-PRS CHRONIC ULC UNSP PRT OF R LOW LEG W UNSP SEVERITY (3) Cardiac arrest Code(s): I46.9 - CARDIAC ARREST, CAUSE UNSPECIFIED (4) Anemia Code(s): D64.9 - ANEMIA, UNSPECIFIED Qualifiers: Folate deficiency anemia type: dietary (5) ESRD (end stage renal disease) on dialysis Code(s): N18.6 - END STAGE RENAL DISEASE; Z99.2 - DEPENDENCE ON RENAL DIALYSIS (6) Gastroparesis Code(s): K31.84 - GASTROPARESIS (7) HTN (hypertension) Code(s): I10 - ESSENTIAL (PRIMARY) HYPERTENSION (8) SOB (shortness of breath) Code(s): R06.02 - SHORTNESS OF BREATH (10) Fluid overload Code(s): E87.70 - FLUID OVERLOAD, UNSPECIFIED (11) Anemia Code(s): D64.9 - ANEMIA, UNSPECIFIED
[2017-11-26] MEDS ORDERED: SODIUM CHLORIDE 250 ML IV PRN ×3 (13:53→22:06)
[2017-11-26] MEDS ORDERED: EPOETIN ALFA 20,000 UNIT/1 ML VIAL IVPUSH ONE (14:00)
--- NOTE | 2017-11-26 14:17 | PN ---
Progress Note, Physician History of Present Illness: stable c/o of rt sided pain lateral wall of the rt side of the chest on dialysis now breathing better - Current Medication List Current Medications: Active Medications Acetaminophen (Tylenol -) 650 mg PO Q4H PRN PRN Reason: FEVER Last Admin: 11/26/17 10:34 Dose: 650 mg Albuterol Sulfate (Ventolin 0.083% Nebulizer Soln -) 1 amp NEB Q4H PRN PRN Reason: SHORT OF BREATH/WHEEZING Last Admin: 11/25/17 05:20 Dose: 1 amp Albuterol/Ipratropium (Duoneb -) 1 amp NEB RQID [facility] Last Admin: 11/26/17 11:27 Dose: 1 amp Clonidine (Catapres -) 0.3 mg PO TID [facility] Last Admin: 11/26/17 06:22 Dose: 0.3 mg Collagenase (Santyl -) 1 applic TP DAILY [facility]; Protocol Last Admin: 11/26/17 09:42 Dose: 1 applic Guaifenesin (Diabetic Tussin Dm -) 10 ml PO Q6H PRN PRN Reason: COUGH Last Admin: 11/26/17 01:54 Dose: 10 ml Heparin Sodium (Porcine) (Heparin -) 5,000 unit SQ TID [facility] Last Admin: 11/26/17 06:22 Dose: Not Given Hydralazine HCl (Apresoline -) 100 mg PO TID [facility] Last Admin: 11/26/17 06:22 Dose: Not Given Piperacillin Sod/Tazobactam (Sod 2.25 gm/ Dextrose) 50 mls @ 100 mls/hr IVPB Q8H-IV [facility]; Protocol Last Admin: 11/26/17 09:42 Dose: 100 mls/hr Insulin Aspart (Novolog Vial Sliding Scale -) 1 vial SQ ACHS [facility]; Protocol Last Admin: 11/26/17 12:41 Dose: 4 unit Insulin Detemir (Levemir Vial) 10 units SQ BID@0700,2200 [facility] Labetalol HCl (Normodyne -) 500 mg PO TID [facility] Last Admin: 11/26/17 06:22 Dose: Not Given Losartan Potassium (Cozaar -) 100 mg PO DAILY [facility] Last Admin: 11/26/17 09:42 Dose: Not Given Nifedipine (Procardia Xl -) 90 mg PO DAILY [facility] Last Admin: 11/26/17 09:42 Dose: Not Given Oxycodone HCl (Roxicodone -) 10 mg PO Q6H PRN PRN Reason: PAIN LEVEL 4 - 6 Last Admin: 11/26/17 09:40 Dose: 10 mg Pantoprazole Sodium (Protonix -) 20 mg PO DAILY [facility] Last Admin: 11/26/17 09:41 Dose: 20 mg - Objective Vital Signs: Vital Signs Temperature 99.6 F 11/26/17 14:14 Pulse Rate 95 H 11/26/17 14:14 Respiratory Rate 18 11/26/17 14:14 Blood Pressure 139/75 11/26/17 14:14 O2 Sat by Pulse Oximetry (%) 98 11/26/17 10:00 Constitutional: Yes: Calm, Mild Distress Cardiovascular: Yes: Regular Rate and Rhythm Respiratory: Yes: Regular, CTA Bilaterally, On Nasal O2 Gastrointestinal: Yes: Normal Bowel Sounds, Soft Musculoskeletal: Yes: WNL Extremities: Yes: WNL Wound/Incision: Yes: Dressing Dry and Intact Neurological: Yes: Alert, Oriented Psychiatric: Yes: Alert, Oriented Labs: CBC, BMP 11/25/17 23:05 11/25/17 13:00 INR, PTT INR 1.50 (0.83-1.09) H 11/23/17 16:18 Assessment/Plan Problem List - Problems (1) Pneumonia Code(s): J18.9 - PNEUMONIA, UNSPECIFIED ORGANISM (2) Ulcer of right leg Code(s): L97.919 - NON-PRS CHRONIC ULC UNSP PRT OF R LOW LEG W UNSP SEVERITY (3) Cardiac arrest Code(s): I46.9 - CARDIAC ARREST, CAUSE UNSPECIFIED (4) Anemia Code(s): D64.9 - ANEMIA, UNSPECIFIED Qualifiers: Folate deficiency anemia type: dietary (5) ESRD (end stage renal disease) on dialysis Code(s): N18.6 - END STAGE RENAL DISEASE; Z99.2 - DEPENDENCE ON RENAL DIALYSIS (6) Gastroparesis Code(s): K31.84 - GASTROPARESIS (7) HTN (hypertension) Code(s): I10 - ESSENTIAL (PRIMARY) HYPERTENSION (8) SOB (shortness of breath) Code(s): R06.02 - SHORTNESS OF BREATH (10) Fluid overload Code(s): E87.70 - FLUID OVERLOAD, UNSPECIFIED (11) Anemia Code(s): D64.9 - ANEMIA, UNSPECIFIED plan continue current abx incentive aristides rest as per the team
[2017-11-26 15:29] LABS: BASO % 0.8 % (0-2.0); EOS % 1.5 % (0-4.5); HEMOGLOBIN 7.7 GM/dL (10.7-15.3); LYMPH % 5.5 % (8-40); MCH 27.1 pg (25.7-33.7); MCHC 31.9 g/dl (32.0-36.0); MEAN CELL VOLUME 85.1 fl (80-96); MEAN PLT VOLUME 8.8 fl (7.5-11.1); MONO % 12.6 % (3.8-10.2); NEUT % 79.6 % (42.8-82.8); PLATELET COUNT 537 K/MM3 (134-434); RBC 2.83 M/mm3 (3.60-5.2); RDW 16.5 % (11.6-15.6)
[2017-11-26 15:31] LABS: ALBUMIN 2.3 g/dl (3.4-5.0); ANION GAP 12 MMOL/L (8-16); BILIRUBIN,TOTAL 0.6 mg/dL (0.2-1.0); BLOOD UREA NITROGEN 36 mg/dL (7-18); CALCIUM 8.3 mg/dL (8.5-10.1); CHLORIDE 95 mmol/L (98-107); CO2 29 mmol/L (21-32); CREATININE 5.7 mg/dL (0.55-1.02); GLUCOSE,RANDOM 186 mg/dL (74-106); PHOSPHOROUS 6.2 mg/dL (2.5-4.9); POTASSIUM 4.5 mmol/L (3.5-5.1); SGOT/AST 12 U/L (15-37); SGPT/ALT < 6 U/L (12-78); SODIUM 136 mmol/L (136-145); TOT PROT 7.3 g/dl (6.4-8.2)
[2017-11-26 15:32] LABS: ALK PHOS 935 U/L (45-117)
--- NOTE | 2017-11-26 15:39 | PN ---
Progress Note (short form) - Note Progress Note: Renal follow up for ESRD on HD Pt seen and examined at the bedside sleeping but no acute complaints for dialysis today Vital Signs Temperature 99.6 F 11/26/17 14:14 Pulse Rate 95 H 11/26/17 14:30 Respiratory Rate 18 11/26/17 14:30 Blood Pressure 140/82 11/26/17 14:30 O2 Sat by Pulse Oximetry (%) 98 11/26/17 10:00 Intake & Output 11/23/17 11/24/17 11/25/17 11/26/17 23:59 23:59 23:59 23:59 Intake Total 173 214 9489 900 Balance 012 466 7479 900 Weight 63.503 kg 63.503 kg NAD alert MMM, No JVD Dec BS at lung bases + edema in LE CBC, BMP 11/26/17 14:00 11/26/17 14:00 Current Medications Acetaminophen (Tylenol -) 650 mg PO Q4H PRN PRN Reason: FEVER Last Admin: 11/26/17 10:34 Dose: 650 mg Albuterol Sulfate (Ventolin 0.083% Nebulizer Soln -) 1 amp NEB Q4H PRN PRN Reason: SHORT OF BREATH/WHEEZING Last Admin: 11/25/17 05:20 Dose: 1 amp Albuterol/Ipratropium (Duoneb -) 1 amp NEB RQID [facility] Last Admin: 11/26/17 11:27 Dose: 1 amp Clonidine (Catapres -) 0.3 mg PO TID ROSA [facility] Last Admin: 11/26/17 15:25 Dose: Not Given Collagenase (Santyl -) 1 applic TP DAILY [facility]; Protocol Last Admin: 11/26/17 09:42 Dose: 1 applic Guaifenesin (Diabetic Tussin Dm -) 10 ml PO Q6H PRN PRN Reason: COUGH Last Admin: 11/26/17 01:54 Dose: 10 ml Heparin Sodium (Porcine) (Heparin -) 5,000 unit SQ TID [facility] Last Admin: 11/26/17 15:25 Dose: Not Given Hydralazine HCl (Apresoline -) 100 mg PO TID [facility] Last Admin: 11/26/17 15:25 Dose: Not Given Piperacillin Sod/Tazobactam (Sod 2.25 gm/ Dextrose) 50 mls @ 100 mls/hr IVPB Q8H-IV ROS[facility]IA; Protocol Last Admin: 11/26/17 09:42 Dose: 100 mls/hr Insulin Aspart (Novolog Vial Sliding Scale -) 1 vial SQ ACHS [facility]; Protocol Last Admin: 11/26/17 12:41 Dose: 4 unit Insulin Detemir (Levemir Vial) 10 units SQ BID@0700,2200 [facility] Last Admin: 11/26/17 08:24 Dose: Not Given Labetalol HCl (Normodyne -) 500 mg PO TID [facility] Last Admin: 11/26/17 15:25 Dose: Not Given Losartan Potassium (Cozaar -) 100 mg PO DAILY [facility] Last Admin: 11/26/17 09:42 Dose: Not Given Nifedipine (Procardia Xl -) 90 mg PO DAILY [facility] Last Admin: 11/26/17 09:42 Dose: Not Given Oxycodone HCl (Roxicodone -) 10 mg PO Q6H PRN PRN Reason: PAIN LEVEL 4 - 6 Last Admin: 11/26/17 09:40 Dose: 10 mg Pantoprazole Sodium (Protonix -) 20 mg PO DAILY [facility] Last Admin: 11/26/17 09:41 Dose: 20 mg 27 year old woman with hx of ESRD on HD, IDDM, PVD, Hypertension, Hx of Cardiac Arrest, Recent PNA presents with SOB and lethargy and found to have mild volume overload. #ESRD on HD #Volume Overlaod #LE wounds #Hypertension #Chronic Anemia #DM on insulin for dialysis today with UF as tolerated additional HD tomorrow for volume management renal diet ,1.2 L fluid restriction on Zosyn as per ID Continue High dose MACIE with HD continue present BP meds Nathan Vo DO
[2017-11-27] MEDS ORDERED: PIPERACILLIN/TAZOBACTAM 2.25 GM VIAL IVPB ONE ×3 (01:18→16:58)
[2017-11-27] MEDS ORDERED: DEXTROSE 5%-WATER - 50 ML IVPB ONE ×3 (01:18→16:58)
[2017-11-27] MEDS: PIPERACILLIN/TAZOB 2.25 GM 2.25 GM in DEXTROSE 5%-WATER - 50 ML IVPB SCH ×3 (01:41→17:29)
[2017-11-27] MEDS ORDERED: PT OWN MED DRAWER 7, Y5N ONE ×3 (01:45→10:18)
[2017-11-27] MEDS: guaiFENesin/D-M SUGAR-FREE/ACLHOL-FREE 118 ML BOTTLE PO PRN (01:46)
[2017-11-27] MEDS: oxyCODONE HCL 5 MG TABLET PO PRN ×2 (04:08→13:50)
[2017-11-27] MEDS: ACETAMINOPHEN 325 MG TABLET (FP) PO PRN ×2 (04:09→13:57)
[2017-11-27] MEDS: ALBUTEROL SO4 0.083% IH SOL 2.5 MG/3 ML VIAL.NEB. NEB PRN (04:40)
[2017-11-27] MEDS: cloNIDine HCL 0.1 MG TABLET PO SCH ×3 (05:52→22:30)
[2017-11-27] MEDS: HEPARIN NA (PORCINE) 5,000 UNITS/ML 1ML VIAL SQ SCH ×3 (06:06→22:31)
[2017-11-27] MEDS: hydrALAZINE HCL 50 MG TABLET (FP) PO SCH ×3 (06:07→22:30)
[2017-11-27] MEDS: LABETALOL HCL 200 MG TABLET (FP) PO SCH ×3 (06:07→22:31)
[2017-11-27] MEDS: INSULIN (LEVEMIR) 100 UNITS/ML UNITS SQ SCH ×2 (06:28→22:31)
[2017-11-27] MEDS: INSULIN SLIDING SCALE (NOVOLOG) 1 VIAL SQ SCH ×4 (06:29→22:32)
[2017-11-27] MEDS ORDERED: INSULIN (NOVOLOG) ASPART 100 UNITS/ML 10ML VIAL ONE ×2 (06:33→11:46)
--- NOTE | 2017-11-27 07:53 | PN ---
Physical Exam: SUBJECTIVE: Patient seen and examined at the bedside. getting dialysis and 1 unit of prbc. pt is awake, states her breathing is better. OBJECTIVE: Vital Signs Period Temp Pulse Resp BP Sys/Ames Pulse Ox Last 24 Hr 97.8 F-99.6 F 88-95 18-19 124-150/71-90 97-98 GENERAL: The patient is awake, alert, and fully oriented, in no acute distress. HEAD: Normal with no signs of trauma. EYES: PERRL, extraocular movements intact, sclera anicteric, conjunctiva clear. No ptosis. ENT: Ears normal, nares patent, oropharynx clear without exudates, moist mucous membranes. NECK: Trachea midline, full range of motion, supple. LUNGS: diminshed lungs sounds bilaterally. on 2 liters of nasal cannula. HEART: Regular rate and rhythm, S1, S2 without murmur, rub or gallop. ABDOMEN: Soft, nontender, nondistended, normoactive bowel sounds, no guarding, no rebound, no hepatosplenomegaly, no masses. EXTREMITIES: edematous right leg, dry, with wounds, seen by vascular NEUROLOGICAL: Normal speech, gait not observed. PSYCH: Normal mood, normal affect. Laboratory Results - last 24 hr 11/25/17 11/26/17 11/26/17 13:00 11:58 14:00 WBC 13.0 H RBC 2.83 L Hgb 7.7 L Hct 24.0 L MCV 85.1 MCH 27.1 MCHC 31.9 L RDW 16.5 H Plt Count 537 H MPV 8.8 Absolute Neuts (auto) 10.3 H Neutrophils % 79.6 Lymphocytes % 5.5 L Monocytes % 12.6 H Eosinophils % 1.5 D Basophils % 0.8 Nucleated RBC % 0 Sodium Potassium Chloride Carbon Dioxide Anion Gap BUN Creatinine Creat Clearance w eGFR POC Glucometer 226 Random Glucose Calcium Phosphorus Total Bilirubin AST ALT Alkaline Phosphatase Total Protein Albumin Blood Type B POSITIVE Antibody Screen Negative Crossmatch See Detail 11/26/17 11/26/17 11/26/17 14:00 16:26 21:33 WBC RBC Hgb Hct MCV MCH MCHC RDW Plt Count MPV Absolute Neuts (auto) Neutrophils % Lymphocytes % Monocytes % Eosinophils % Basophils % Nucleated RBC % Sodium 136 Potassium 4.5 Chloride 95 L Carbon Dioxide 29 Anion Gap 12 BUN 36 H Creatinine 5.7 H Creat Clearance w eGFR 8.86 POC Glucometer 209 291 Random Glucose 186 H Calcium 8.3 L Phosphorus 6.2 H Total Bilirubin 0.6 AST 12 L ALT < 6 L Alkaline Phosphatase 935 H D Total Protein 7.3 Albumin 2.3 L Blood Type Antibody Screen Crossmatch 11/27/17 11/27/17 05:51 07:00 WBC RBC Hgb Hct MCV MCH MCHC RDW Plt Count MPV Absolute Neuts (auto) Neutrophils % Lymphocytes % Monocytes % Eosinophils % Basophils % Nucleated RBC % Sodium Potassium Chloride Carbon Dioxide Anion Gap BUN Creatinine Creat Clearance w eGFR POC Glucometer 272 Random Glucose Calcium Phosphorus Total Bilirubin AST ALT Alkaline Phosphatase Total Protein Albumin Blood Type Antibody Screen Crossmatch See Detail Active Medications Generic Name Dose Route Start Last Admin Trade Name Freq PRN Reason Stop Dose Admin Acetaminophen 650 mg 11/23/17 18:37 11/27/17 04:09 Tylenol - PO 650 mg Q4H PRN Administration FEVER Albuterol Sulfate 1 amp 11/24/17 09:20 11/27/17 04:40 Ventolin 0.083% Nebulizer Soln - NEB 1 amp Q4H PRN Administration SHORT OF BREATH/WHEEZING Albuterol/Ipratropium 1 amp 11/24/17 16:00 11/26/17 20:24 Duoneb - NEB 1 amp RQID ROSA MARIA Administration Clonidine 0.3 mg 11/23/17 22:00 11/27/17 05:52 Catapres - PO 0.3 mg TID ROSA MARIA Administration Collagenase 1 applic 11/24/17 10:00 11/26/17 09:42 Santyl - TP 1 applic DAILY ROSA MARIA Administration Protocol Guaifenesin 10 ml 11/24/17 10:00 11/27/17 01:46 Diabetic Tussin Dm - PO 10 ml Q6H PRN Administration COUGH Heparin Sodium (Porcine) 5,000 unit 11/24/17 06:00 11/27/17 06:06 Heparin - SQ Not Given TID ROSA MARIA Hydralazine HCl 100 mg 11/23/17 22:00 11/27/17 06:07 Apresoline - PO Not Given TID ROSA MARIA Piperacillin Sod/Tazobactam 50 mls @ 100 mls/hr 11/24/17 18:00 11/27/17 01:41 Sod 2.25 gm/ Dextrose IVPB 100 mls/hr Q8H-IV ROSA [facility]IA Administration Protocol Sodium Chloride 250 mls @ 3,000 mls/hr 11/26/17 22:06 Normal Saline - IV 11/27/17 22:06 PRN PRN Hypotension during Dialysis Insulin Aspart 1 vial 11/23/17 22:00 11/27/17 06:29 Novolog Vial Sliding Scale - SQ 6 unit ACHS ROSA MARIA Administration Protocol Insulin Detemir 10 units 11/25/17 22:37 11/27/17 06:28 Levemir Vial SQ 10 units BID@0700,2200 ROSA [facility]IA Administration Labetalol HCl 500 mg 11/23/17 22:00 11/27/17 06:07 Normodyne - PO Not Given TID ROSA MARIA Losartan Potassium 100 mg 11/24/17 10:00 11/26/17 09:42 Cozaar - PO Not Given DAILY ROSA MARIA Nifedipine 90 mg 11/24/17 10:00 11/26/17 09:42 Procardia Xl - PO Not Given DAILY ROSA MARIA Oxycodone HCl 10 mg 11/23/17 18:07 11/27/17 04:08 Roxicodone - PO 10 mg Q6H PRN Administration PAIN LEVEL 4 - 6 Pantoprazole Sodium 20 mg 11/24/17 10:00 11/26/17 09:41 Protonix - PO 20 mg DAILY ROSA MARIA Administration ASSESSMENT/PLAN: Patient is a 27 year old female with past medical history of of ESRD on dialysis , diabetes, hypertension, PVD, atrial thrombus and chronic respiratory failure ( on home oxygen). Patient presents to the [facility] for shortness of breath and increased weakness. Patient was recently discharged on 11/13/17 for pneumonia and completed IV antibiotics. She has chronic right foot ulcers and is s/p right 5th metatarsal head resection and now new ulcers on her right lower extremity with edema. Pulm: Pneumonia, improving Chronic Respiratory failure/home oxygen dependent On Zosyn. Monitor oxygen saturations to maintain goal of 92% on 2 liters. on duonebs. Monitor oxygen sats. Card: Hypertension: Controlled on labetalol tid, clonidine tid, hydralazine tid, procardia, cozaar PE history: on no anticoagulation. negative for DVT of RLE Endocrine: ESRD on dialysis: renal following. dialysis tomorrow. Endocrine: Diabetes: BGMs elevated, increased Levemir. On novolog. diabetic diet. Vascular Diabetic ulcers/Right foot wounds: continue daily wound care changes with santyl. Outpatient follow up at wound care clinic encouraged. Will consult vascular for worsening right lower ext wounds. fen tolerating PO monitor electrolytes diabetic diet prophy heparin full code Visit type - Emergency Visit Emergency Visit: Yes ED Registration Date: 11/23/17 Care time: The patient presented to the Emergency Department on the above date and was hospitalized for further evaluation of their emergent condition. - New Patient This patient is new to me today: No - Critical Care Critical Care patient: No - Discharge Referral Referred to [facility] No
[2017-11-27 08:10] LABS: HEMATOCRIT 25.7 % (32.4-45.2); MCH 26.3 pg (25.7-33.7); MEAN PLT VOLUME 8.4 fl (7.5-11.1); PLATELET COUNT 535 K/MM3 (134-434); RBC 3.03 M/mm3 (3.60-5.2); RDW 16.4 % (11.6-15.6); WHITE BLOOD COUNT 13.3 K/mm3 (4.0-10.0)
[2017-11-27] MEDS: ALBUTEROL SO4 2.5/IPRATROPIUM 0.5 INH SOL 3 ML VIAL.NEB. NEB SCH ×4 (08:41→20:04)
[2017-11-27 08:48] LABS: ANION GAP 12 MMOL/L (8-16); BLOOD UREA NITROGEN 25 mg/dL (7-18); CALCIUM 8.8 mg/dL (8.5-10.1); CHLORIDE 94 mmol/L (98-107); CO2 31 mmol/L (21-32); GLUCOSE,RANDOM 190 mg/dL (74-106); POTASSIUM 3.7 mmol/L (3.5-5.1); SODIUM 137 mmol/L (136-145)
--- NOTE | 2017-11-27 09:36 | PN ---
Progress Note, Physician History of Present Illness: pulmonary alert,feeling better,less congested. - Current Medication List Current Medications: Active Medications Acetaminophen (Tylenol -) 650 mg PO Q4H PRN PRN Reason: FEVER Last Admin: 11/27/17 04:09 Dose: 650 mg Albuterol Sulfate (Ventolin 0.083% Nebulizer Soln -) 1 amp NEB Q4H PRN PRN Reason: SHORT OF BREATH/WHEEZING Last Admin: 11/27/17 04:40 Dose: 1 amp Albuterol/Ipratropium (Duoneb -) 1 amp NEB RQID ROSA [facility]IA Last Admin: 11/27/17 08:41 Dose: 1 amp Clonidine (Catapres -) 0.3 mg PO TID [facility] Last Admin: 11/27/17 05:52 Dose: 0.3 mg Collagenase (Santyl -) 1 applic TP DAILY [facility]; Protocol Last Admin: 11/26/17 09:42 Dose: 1 applic Guaifenesin (Diabetic Tussin Dm -) 10 ml PO Q6H PRN PRN Reason: COUGH Last Admin: 11/27/17 01:46 Dose: 10 ml Heparin Sodium (Porcine) (Heparin -) 5,000 unit SQ TID [facility] Last Admin: 11/27/17 06:06 Dose: Not Given Hydralazine HCl (Apresoline -) 100 mg PO TID [facility] Last Admin: 11/27/17 06:07 Dose: Not Given Piperacillin Sod/Tazobactam (Sod 2.25 gm/ Dextrose) 50 mls @ 100 mls/hr IVPB Q8H-IV [facility]; Protocol Last Admin: 11/27/17 01:41 Dose: 100 mls/hr Sodium Chloride (Normal Saline -) 250 mls @ 3,000 mls/hr IV PRN PRN PRN Reason: Hypotension during Dialysis Stop: 11/27/17 22:06 Insulin Aspart (Novolog Vial Sliding Scale -) 1 vial SQ ACHS [facility]; Protocol Last Admin: 11/27/17 06:29 Dose: 6 unit Insulin Detemir (Levemir Vial) 10 units SQ BID@0700,2200 [facility] Last Admin: 11/27/17 06:28 Dose: 10 units Labetalol HCl (Normodyne -) 500 mg PO TID [facility] Last Admin: 11/27/17 06:07 Dose: Not Given Losartan Potassium (Cozaar -) 100 mg PO DAILY [facility] Last Admin: 11/26/17 09:42 Dose: Not Given Nifedipine (Procardia Xl -) 90 mg PO DAILY [facility] Last Admin: 11/26/17 09:42 Dose: Not Given Oxycodone HCl (Roxicodone -) 10 mg PO Q6H PRN PRN Reason: PAIN LEVEL 4 - 6 Last Admin: 11/27/17 04:08 Dose: 10 mg Pantoprazole Sodium (Protonix -) 20 mg PO DAILY [facility] Last Admin: 11/26/17 09:41 Dose: 20 mg - Objective Vital Signs: Vital Signs Temperature 98.6 F 11/27/17 06:55 Pulse Rate 81 11/27/17 08:30 Respiratory Rate 18 11/27/17 08:30 Blood Pressure 104/61 11/27/17 08:30 O2 Sat by Pulse Oximetry (%) 97 11/26/17 21:00 Constitutional: Yes: Well Nourished, Calm Eyes: Yes: WNL HENT: Yes: WNL Neck: Yes: WNL Cardiovascular: Yes: Regular Rate and Rhythm, S1, S2 Respiratory: Yes: Rhonchi (few rhonchi) Gastrointestinal: Yes: Normal Bowel Sounds, Soft Extremities: Yes: WNL Edema: Yes Labs: CBC, BMP 11/27/17 07:00 11/27/17 07:00 INR, PTT INR 1.50 (0.83-1.09) H 11/23/17 16:18 Problem List - Problems (1) Pneumonia Code(s): J18.9 - PNEUMONIA, UNSPECIFIED ORGANISM (2) Ulcer of right leg Code(s): L97.919 - NON-PRS CHRONIC ULC UNSP PRT OF R LOW LEG W UNSP SEVERITY (3) Cardiac arrest Code(s): I46.9 - CARDIAC ARREST, CAUSE UNSPECIFIED (4) Anemia Code(s): D64.9 - ANEMIA, UNSPECIFIED Qualifiers: Folate deficiency anemia type: dietary (5) ESRD (end stage renal disease) on dialysis Code(s): N18.6 - END STAGE RENAL DISEASE; Z99.2 - DEPENDENCE ON RENAL DIALYSIS (6) Gastroparesis Code(s): K31.84 - GASTROPARESIS (7) HTN (hypertension) Code(s): I10 - ESSENTIAL (PRIMARY) HYPERTENSION (8) SOB (shortness of breath) Code(s): R06.02 - SHORTNESS OF BREATH (10) Fluid overload Code(s): E87.70 - FLUID OVERLOAD, UNSPECIFIED (11) Anemia Code(s): D64.9 - ANEMIA, UNSPECIFIED Assessment/Plan IMP ACUTE RESPIRATORY DISTRESS IMPROVED PNEUMONIA CHF/FLUID OVERLOAD ESRD ON HD ATRIAL THROMBUS IDDM H/O DVT/PE RLE WOUND H/O CARDIAC ARREST PLAN ABX PER ID INHALED BRONCHODILATORS' O2 F/U CHEST X-RAY WOUND CARE HD PER RENAL GLYCEMIC CONTROL DR BECERRA Problem List - Problems (1) Pneumonia Code(s): J18.9 - PNEUMONIA, UNSPECIFIED ORGANISM (2) Ulcer of right leg Code(s): L97.919 - NON-PRS CHRONIC ULC UNSP PRT OF R LOW LEG W UNSP SEVERITY (3) Cardiac arrest Code(s): I46.9 - CARDIAC ARREST, CAUSE UNSPECIFIED (4) Anemia Code(s): D64.9 - ANEMIA, UNSPECIFIED Qualifiers: Folate deficiency anemia type: dietary (5) ESRD (end stage renal disease) on dialysis Code(s): N18.6 - END STAGE RENAL DISEASE; Z99.2 - DEPENDENCE ON RENAL DIALYSIS (6) Gastroparesis Code(s): K31.84 - GASTROPARESIS (7) HTN (hypertension) Code(s): I10 - ESSENTIAL (PRIMARY) HYPERTENSION (8) SOB (shortness of breath) Code(s): R06.02 - SHORTNESS OF BREATH (10) Fluid overload Code(s): E87.70 - FLUID OVERLOAD, UNSPECIFIED (11) Anemia Code(s): D64.9 - ANEMIA, UNSPECIFIED
[2017-11-27] MEDS: LOSARTAN POTASSIUM 50 MG TABLET (FP) PO SCH (10:23)
[2017-11-27] MEDS: PANTOPRAZOLE 20 MG TABLET (FP) PO SCH (10:24)
[2017-11-27] MEDS: NIFEdipine E.R. 90 MG TABLET (FP) PO SCH (10:24)
[2017-11-27] MEDS: COLLAGENASE CLOSTRIDIUM HIST. 30 GRAMS TUBE TP SCH (10:24)
[2017-11-27] MEDS ORDERED: diphenhydrAMINE HCL 25 MG CAPSULE (FP) PO ONE (11:32)
--- NOTE | 2017-11-27 12:31 | PN ---
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 Active Medications Acetaminophen (Tylenol -) 650 mg PO Q4H PRN PRN Reason: FEVER Last Admin: 11/27/17 04:09 Dose: 650 mg Albuterol Sulfate (Ventolin 0.083% Nebulizer Soln -) 1 amp NEB Q4H PRN PRN Reason: SHORT OF BREATH/WHEEZING Last Admin: 11/27/17 04:40 Dose: 1 amp Albuterol/Ipratropium (Duoneb -) 1 amp NEB RQID ROSA [facility]IA Last Admin: 11/27/17 11:36 Dose: 1 amp Clonidine (Catapres -) 0.3 mg PO TID ROS[facility]IA Last Admin: 11/27/17 05:52 Dose: 0.3 mg Collagenase (Santyl -) 1 applic TP DAILY [facility]; Protocol Last Admin: 11/27/17 10:24 Dose: 1 applic Guaifenesin (Diabetic Tussin Dm -) 10 ml PO Q6H PRN PRN Reason: COUGH Last Admin: 11/27/17 01:46 Dose: 10 ml Heparin Sodium (Porcine) (Heparin -) 5,000 unit SQ TID ROS[facility]IA Last Admin: 11/27/17 06:06 Dose: Not Given Hydralazine HCl (Apresoline -) 100 mg PO TID [facility]IA Last Admin: 11/27/17 06:07 Dose: Not Given Piperacillin Sod/Tazobactam (Sod 2.25 gm/ Dextrose) 50 mls @ 100 mls/hr IVPB Q8H-IV [facility]; Protocol Last Admin: 11/27/17 10:25 Dose: 100 mls/hr Sodium Chloride (Normal Saline -) 250 mls @ 3,000 mls/hr IV PRN PRN PRN Reason: Hypotension during Dialysis Stop: 11/27/17 22:06 Insulin Aspart (Novolog Vial Sliding Scale -) 1 vial SQ ACHS [facility]; Protocol Last Admin: 11/27/17 11:48 Dose: 4 unit Insulin Detemir (Levemir Vial) 10 units SQ BID@0700,2200 [facility] Last Admin: 11/27/17 06:28 Dose: 10 units Labetalol HCl (Normodyne -) 500 mg PO TID [facility] Last Admin: 11/27/17 06:07 Dose: Not Given Losartan Potassium (Cozaar -) 100 mg PO DAILY [facility] Last Admin: 11/27/17 10:23 Dose: Not Given Nifedipine (Procardia Xl -) 90 mg PO DAILY [facility] Last Admin: 11/27/17 10:24 Dose: Not Given Oxycodone HCl (Roxicodone -) 10 mg PO Q6H PRN PRN Reason: PAIN LEVEL 4 - 6 Last Admin: 11/27/17 04:08 Dose: 10 mg Pantoprazole Sodium (Protonix -) 20 mg PO DAILY [facility] Last Admin: 11/27/17 10:24 Dose: 20 mg Last Vital Signs Temp Pulse Resp BP Pulse Ox 98.1 F 92 H 19 115/69 97 11/27/17 10:00 11/27/17 10:00 11/27/17 10:00 11/27/17 10:00 11/27/17 09:00 lungs clear heart reg abd soft ext no edema CBC, BMP 11/27/17 07:00 11/27/17 07:00 IMP- ESRD on HD S/P Volume Overlaod LE wounds Hypertension Chronic Anemia DM on insulin Plan- maintenance HD next week
[2017-11-28] MEDS ORDERED: PIPERACILLIN/TAZOBACTAM 2.25 GM VIAL IVPB ONE ×3 (01:34→17:03)
[2017-11-28] MEDS ORDERED: DEXTROSE 5%-WATER - 50 ML IVPB ONE ×3 (01:35→17:03)
[2017-11-28] MEDS: PIPERACILLIN/TAZOB 2.25 GM 2.25 GM in DEXTROSE 5%-WATER - 50 ML IVPB SCH ×3 (01:37→17:09)
[2017-11-28] MEDS ORDERED: PT OWN MED DRAWER 7, Y5N ONE ×3 (01:51→10:00)
[2017-11-28] MEDS: ACETAMINOPHEN 325 MG TABLET (FP) PO PRN ×3 (02:00→21:52)
[2017-11-28] MEDS: oxyCODONE HCL 5 MG TABLET PO PRN ×3 (02:02→21:51)
[2017-11-28] MEDS: guaiFENesin/D-M SUGAR-FREE/ACLHOL-FREE 118 ML BOTTLE PO PRN (02:04)
[2017-11-28] MEDS: INSULIN SLIDING SCALE (NOVOLOG) 1 VIAL SQ SCH ×4 (06:59→21:51)
[2017-11-28] MEDS: cloNIDine HCL 0.1 MG TABLET PO SCH ×3 (07:01→21:50)
[2017-11-28] MEDS: HEPARIN NA (PORCINE) 5,000 UNITS/ML 1ML VIAL SQ SCH ×3 (07:01→21:50)
[2017-11-28] MEDS: INSULIN (LEVEMIR) 100 UNITS/ML UNITS SQ SCH ×2 (07:01→21:50)
[2017-11-28] MEDS: hydrALAZINE HCL 50 MG TABLET (FP) PO SCH ×3 (07:04→21:50)
[2017-11-28] MEDS: LABETALOL HCL 200 MG TABLET (FP) PO SCH ×3 (07:04→21:51)
[2017-11-28] MEDS: ALBUTEROL SO4 2.5/IPRATROPIUM 0.5 INH SOL 3 ML VIAL.NEB. NEB SCH ×4 (08:17→19:12)
[2017-11-28 09:14] LABS: BASO % 1.2 % (0-2.0); EOS % 1.7 % (0-4.5); HEMOGLOBIN 9.3 GM/dL (10.7-15.3); LYMPH % 9.4 % (8-40); MCH 26.5 pg (25.7-33.7); MCHC 30.9 g/dl (32.0-36.0); MEAN CELL VOLUME 85.9 fl (80-96); MEAN PLT VOLUME 8.4 fl (7.5-11.1); MONO % 12.3 % (3.8-10.2); NEUT % 75.4 % (42.8-82.8); PLATELET COUNT 577 K/MM3 (134-434); RDW 17.5 % (11.6-15.6); WHITE BLOOD COUNT 12.6 K/mm3 (4.0-10.0)
[2017-11-28 09:38] LABS: ALBUMIN 2.6 g/dl (3.4-5.0); ANION GAP 12 MMOL/L (8-16); BLOOD UREA NITROGEN 31 mg/dL (7-18); CALCIUM 8.6 mg/dL (8.5-10.1); CHLORIDE 95 mmol/L (98-107); CO2 28 mmol/L (21-32); CREATININE 4.3 mg/dL (0.55-1.02); GLUCOSE,RANDOM 302 mg/dL (74-106); MAGNESIUM 1.9 mg/dL (1.8-2.4); POTASSIUM 3.8 mmol/L (3.5-5.1); SGOT/AST 12 U/L (15-37); SGPT/ALT < 6 U/L (12-78); SODIUM 135 mmol/L (136-145)
[2017-11-28 09:40] LABS: ALK PHOS 888 U/L (45-117); BILIRUBIN,TOTAL 0.5 mg/dL (0.2-1.0); TOT PROT 7.9 g/dl (6.4-8.2)
[2017-11-28] MEDS: PANTOPRAZOLE 20 MG TABLET (FP) PO SCH (09:51)
--- NOTE | 2017-11-28 09:57 | PN ---
Progress Note, Physician History of Present Illness: PULMONARY ALERT,NO DISTRESS,-SOB - Current Medication List Current Medications: Active Medications Acetaminophen (Tylenol -) 650 mg PO Q4H PRN PRN Reason: FEVER Last Admin: 11/28/17 09:53 Dose: 650 mg Albuterol Sulfate (Ventolin 0.083% Nebulizer Soln -) 1 amp NEB Q4H PRN PRN Reason: SHORT OF BREATH/WHEEZING Last Admin: 11/27/17 04:40 Dose: 1 amp Albuterol/Ipratropium (Duoneb -) 1 amp NEB RQID [facility] Last Admin: 11/28/17 08:17 Dose: 1 amp Clonidine (Catapres -) 0.3 mg PO TID [facility] Last Admin: 11/28/17 07:01 Dose: 0.3 mg Collagenase (Santyl -) 1 applic TP DAILY [facility]; Protocol Last Admin: 11/27/17 10:24 Dose: 1 applic Guaifenesin (Diabetic Tussin Dm -) 10 ml PO Q6H PRN PRN Reason: COUGH Last Admin: 11/28/17 02:04 Dose: 10 ml Heparin Sodium (Porcine) (Heparin -) 5,000 unit SQ TID [facility] Last Admin: 11/28/17 07:01 Dose: Not Given Hydralazine HCl (Apresoline -) 100 mg PO TID [facility] Last Admin: 11/28/17 07:04 Dose: Not Given Piperacillin Sod/Tazobactam (Sod 2.25 gm/ Dextrose) 50 mls @ 100 mls/hr IVPB Q8H-IV [facility]; Protocol Last Admin: 11/28/17 09:51 Dose: 100 mls/hr Sodium Chloride (Normal Saline -) 250 mls @ 3,000 mls/hr IV PRN PRN PRN Reason: Hypotension during Dialysis Stop: 11/27/17 22:06 Insulin Aspart (Novolog Vial Sliding Scale -) 1 vial SQ ACHS [facility]; Protocol Last Admin: 11/28/17 06:59 Dose: 10 unit Insulin Detemir (Levemir Vial) 10 units SQ BID@0700,2200 [facility] Last Admin: 11/28/17 07:01 Dose: 10 units Labetalol HCl (Normodyne -) 500 mg PO TID [facility] Last Admin: 11/28/17 07:04 Dose: Not Given Losartan Potassium (Cozaar -) 100 mg PO DAILY [facility] Last Admin: 11/27/17 10:23 Dose: Not Given Nifedipine (Procardia Xl -) 90 mg PO DAILY [facility] Last Admin: 11/27/17 10:24 Dose: Not Given Oxycodone HCl (Roxicodone -) 10 mg PO Q6H PRN PRN Reason: PAIN LEVEL 4 - 6 Last Admin: 11/28/17 09:52 Dose: 10 mg Pantoprazole Sodium (Protonix -) 20 mg PO DAILY [facility] Last Admin: 11/28/17 09:51 Dose: 20 mg - Objective Vital Signs: Vital Signs Temperature 98.1 F 11/28/17 06:00 Pulse Rate 85 11/28/17 06:00 Respiratory Rate 20 11/28/17 06:00 Blood Pressure 163/97 11/28/17 06:00 O2 Sat by Pulse Oximetry (%) 97 11/27/17 21:00 Constitutional: Yes: Well Nourished, Calm Eyes: Yes: WNL HENT: Yes: WNL Neck: Yes: WNL Cardiovascular: Yes: Regular Rate and Rhythm, S1, S2 Respiratory: Yes: Rales (FEW BIBASILAR CRACKLES) Gastrointestinal: Yes: Normal Bowel Sounds, Soft Extremities: Yes: WNL Edema: Yes Labs: CBC, BMP 11/28/17 08:45 11/28/17 08:45 INR, PTT INR 1.50 (0.83-1.09) H 11/23/17 16:18 - ....Imaging Chest X-ray: Report Reviewed, Image Reviewed Problem List - Problems (1) Pneumonia Code(s): J18.9 - PNEUMONIA, UNSPECIFIED ORGANISM (2) Ulcer of right leg Code(s): L97.919 - NON-PRS CHRONIC ULC UNSP PRT OF R LOW LEG W UNSP SEVERITY (3) Cardiac arrest Code(s): I46.9 - CARDIAC ARREST, CAUSE UNSPECIFIED (4) Anemia Code(s): D64.9 - ANEMIA, UNSPECIFIED Qualifiers: Folate deficiency anemia type: dietary (5) ESRD (end stage renal disease) on dialysis Code(s): N18.6 - END STAGE RENAL DISEASE; Z99.2 - DEPENDENCE ON RENAL DIALYSIS (6) Gastroparesis Code(s): K31.84 - GASTROPARESIS (7) HTN (hypertension) Code(s): I10 - ESSENTIAL (PRIMARY) HYPERTENSION (8) SOB (shortness of breath) Code(s): R06.02 - SHORTNESS OF BREATH (10) Fluid overload Code(s): E87.70 - FLUID OVERLOAD, UNSPECIFIED (11) Anemia Code(s): D64.9 - ANEMIA, UNSPECIFIED Assessment/Plan IMP ACUTE RESPIRATORY DISTRESS IMPROVED PNEUMONIA CHF/FLUID OVERLOAD IMPROVING ESRD ON HD ATRIAL THROMBUS IDDM H/O DVT/PE RLE WOUND H/O CARDIAC ARREST PLAN ABX PER ID INHALED BRONCHODILATORS' O2 F/U CHEST X-RAY WOUND CARE HD PER RENAL GLYCEMIC CONTROL DR BECERRA Problem List - Problems (1) Pneumonia Code(s): J18.9 - PNEUMONIA, UNSPECIFIED ORGANISM (2) Ulcer of right leg Code(s): L97.919 - NON-PRS CHRONIC ULC UNSP PRT OF R LOW LEG W UNSP SEVERITY (3) Cardiac arrest Code(s): I46.9 - CARDIAC ARREST, CAUSE UNSPECIFIED (4) Anemia Code(s): D64.9 - ANEMIA, UNSPECIFIED Qualifiers: Folate deficiency anemia type: dietary (5) ESRD (end stage renal disease) on dialysis Code(s): N18.6 - END STAGE RENAL DISEASE; Z99.2 - DEPENDENCE ON RENAL DIALYSIS (6) Gastroparesis Code(s): K31.84 - GASTROPARESIS (7) HTN (hypertension) Code(s): I10 - ESSENTIAL (PRIMARY) HYPERTENSION (8) SOB (shortness of breath) Code(s): R06.02 - SHORTNESS OF BREATH (10) Fluid overload Code(s): E87.70 - FLUID OVERLOAD, UNSPECIFIED (11) Anemia Code(s): D64.9 - ANEMIA, UNSPECIFIED
[2017-11-28] MEDS: LOSARTAN POTASSIUM 50 MG TABLET (FP) PO SCH (10:06)
[2017-11-28] MEDS: COLLAGENASE CLOSTRIDIUM HIST. 30 GRAMS TUBE TP SCH (10:06)
[2017-11-28] MEDS: NIFEdipine E.R. 90 MG TABLET (FP) PO SCH (10:06)
[2017-11-28] MEDS ORDERED: INSULIN (NOVOLOG) ASPART 100 UNITS/ML 10ML VIAL ONE ×2 (11:49→21:42)
--- NOTE | 2017-11-28 11:52 | PN ---
Progress Note, Physician History of Present Illness: continues to improve all results noted dialysis being tolerated patient feels more better - Current Medication List Current Medications: Active Medications Acetaminophen (Tylenol -) 650 mg PO Q4H PRN PRN Reason: FEVER Last Admin: 11/28/17 09:53 Dose: 650 mg Albuterol Sulfate (Ventolin 0.083% Nebulizer Soln -) 1 amp NEB Q4H PRN PRN Reason: SHORT OF BREATH/WHEEZING Last Admin: 11/27/17 04:40 Dose: 1 amp Albuterol/Ipratropium (Duoneb -) 1 amp NEB RQID [facility] Last Admin: 11/28/17 08:17 Dose: 1 amp Clonidine (Catapres -) 0.3 mg PO TID [facility] Last Admin: 11/28/17 07:01 Dose: 0.3 mg Collagenase (Santyl -) 1 applic TP DAILY [facility]; Protocol Last Admin: 11/28/17 10:06 Dose: 1 applic Guaifenesin (Diabetic Tussin Dm -) 10 ml PO Q6H PRN PRN Reason: COUGH Last Admin: 11/28/17 02:04 Dose: 10 ml Heparin Sodium (Porcine) (Heparin -) 5,000 unit SQ TID [facility] Last Admin: 11/28/17 07:01 Dose: Not Given Hydralazine HCl (Apresoline -) 100 mg PO TID [facility] Last Admin: 11/28/17 07:04 Dose: Not Given Piperacillin Sod/Tazobactam (Sod 2.25 gm/ Dextrose) 50 mls @ 100 mls/hr IVPB Q8H-IV [facility]; Protocol Last Admin: 11/28/17 09:51 Dose: 100 mls/hr Sodium Chloride (Normal Saline -) 250 mls @ 3,000 mls/hr IV PRN PRN PRN Reason: Hypotension during Dialysis Stop: 11/27/17 22:06 Insulin Aspart (Novolog Vial Sliding Scale -) 1 vial SQ ACHS [facility]; Protocol Last Admin: 11/28/17 06:59 Dose: 10 unit Insulin Detemir (Levemir Vial) 10 units SQ BID@0700,2200 [facility] Last Admin: 11/28/17 07:01 Dose: 10 units Labetalol HCl (Normodyne -) 500 mg PO TID [facility] Last Admin: 11/28/17 07:04 Dose: Not Given Losartan Potassium (Cozaar -) 100 mg PO DAILY [facility] Last Admin: 11/28/17 10:06 Dose: Not Given Nifedipine (Procardia Xl -) 90 mg PO DAILY [facility] Last Admin: 11/28/17 10:06 Dose: Not Given Oxycodone HCl (Roxicodone -) 10 mg PO Q6H PRN PRN Reason: PAIN LEVEL 4 - 6 Last Admin: 11/28/17 09:52 Dose: 10 mg Pantoprazole Sodium (Protonix -) 20 mg PO DAILY [facility] Last Admin: 11/28/17 09:51 Dose: 20 mg - Objective Vital Signs: Vital Signs Temperature 98.4 F 11/28/17 10:00 Pulse Rate 87 11/28/17 10:00 Respiratory Rate 18 11/28/17 10:00 Blood Pressure 133/92 11/28/17 10:00 O2 Sat by Pulse Oximetry (%) 97 11/28/17 10:00 Constitutional: Yes: No Distress, Calm, Other (weakness) Cardiovascular: Yes: Regular Rate and Rhythm Respiratory: Yes: Regular, On Nasal O2, Rhonchi Gastrointestinal: Yes: Normal Bowel Sounds, Soft Musculoskeletal: Yes: WNL Extremities: Yes: Other Neurological: Yes: Alert, Oriented Psychiatric: Yes: Alert, Oriented Labs: CBC, BMP 11/28/17 08:45 11/28/17 08:45 INR, PTT INR 1.50 (0.83-1.09) H 11/23/17 16:18 Assessment/Plan Problem List - Problems (1) Pneumonia Code(s): J18.9 - PNEUMONIA, UNSPECIFIED ORGANISM (2) Ulcer of right leg Code(s): L97.919 - NON-PRS CHRONIC ULC UNSP PRT OF R LOW LEG W UNSP SEVERITY (3) Cardiac arrest Code(s): I46.9 - CARDIAC ARREST, CAUSE UNSPECIFIED (4) Anemia Code(s): D64.9 - ANEMIA, UNSPECIFIED Qualifiers: Folate deficiency anemia type: dietary (5) ESRD (end stage renal disease) on dialysis Code(s): N18.6 - END STAGE RENAL DISEASE; Z99.2 - DEPENDENCE ON RENAL DIALYSIS (6) Gastroparesis Code(s): K31.84 - GASTROPARESIS (7) HTN (hypertension) Code(s): I10 - ESSENTIAL (PRIMARY) HYPERTENSION (8) SOB (shortness of breath) Code(s): R06.02 - SHORTNESS OF BREATH (10) Fluid overload Code(s): E87.70 - FLUID OVERLOAD, UNSPECIFIED (11) Anemia Code(s): D64.9 - ANEMIA, UNSPECIFIED plan continue abx continue resp support if patient continues to improve will deescalte to oral rest as per the teams
--- NOTE | 2017-11-28 14:22 | PN ---
Physical Exam: SUBJECTIVE: Patient seen and examined at the bedside. Breathing improved. oxygen demands back to home baseline. OBJECTIVE: breathing much improved right leg inner wound viewed/changed: large right inner leg ulcer: 9 cm x 3.5 cm - wound cleaned with NS, applied xerofoam and secured with livier. Vital Signs Period Temp Pulse Resp BP Sys/Ames Pulse Ox Last 24 Hr 98.1 F-99.3 F 85-92 18-20 133-163/76-98 97-97 GENERAL: The patient is awake, alert, and fully oriented, in no acute distress. HEAD: Normal with no signs of trauma. EYES: PERRL, extraocular movements intact, sclera anicteric, conjunctiva clear. No ptosis. ENT: Ears normal, nares patent, oropharynx clear without exudates, moist mucous membranes. NECK: Trachea midline, full range of motion, supple. LUNGS: diminshed lungs sounds bilaterally. on 2 liters of nasal cannula. HEART: Regular rate and rhythm, S1, S2 without murmur, rub or gallop. ABDOMEN: Soft, nontender, nondistended, normoactive bowel sounds, no guarding, no rebound, no hepatosplenomegaly, no masses. EXTREMITIES: edematous right leg, dry, with wounds, seen by vascular NEUROLOGICAL: Normal speech, gait not observed. PSYCH: Normal mood, normal affect. Laboratory Results - last 24 hr 11/26/17 11/27/17 11/27/17 15:00 16:30 22:25 WBC RBC Hgb Hct MCV MCH MCHC RDW Plt Count MPV Absolute Neuts (auto) Neutrophils % Lymphocytes % Monocytes % Eosinophils % Basophils % Nucleated RBC % Sodium Potassium Chloride Carbon Dioxide Anion Gap BUN Creatinine Creat Clearance w eGFR POC Glucometer 171 320 Random Glucose Calcium Magnesium Total Bilirubin AST ALT Alkaline Phosphatase Total Protein Albumin Hep C Ab Diagnostic <0.1 Liver Fibrosis Interp 11/28/17 11/28/17 11/28/17 08:45 08:45 11:46 WBC 12.6 H RBC 3.50 L Hgb 9.3 L Hct 30.0 L D MCV 85.9 MCH 26.5 MCHC 30.9 L RDW 17.5 H Plt Count 577 H MPV 8.4 Absolute Neuts (auto) 9.5 H Neutrophils % 75.4 Lymphocytes % 9.4 D Monocytes % 12.3 H Eosinophils % 1.7 Basophils % 1.2 Nucleated RBC % 0 Sodium 135 L Potassium 3.8 Chloride 95 L Carbon Dioxide 28 Anion Gap 12 BUN 31 H Creatinine 4.3 H Creat Clearance w eGFR 12.26 POC Glucometer 235 Random Glucose 302 H* Calcium 8.6 Magnesium 1.9 Total Bilirubin 0.5 AST 12 L ALT < 6 L Alkaline Phosphatase 888 H D Total Protein 7.9 Albumin 2.6 L Hep C Ab Diagnostic Liver Fibrosis Interp Active Medications Generic Name Dose Route Start Last Admin Trade Name Freq PRN Reason Stop Dose Admin Acetaminophen 650 mg 11/23/17 18:37 11/28/17 09:53 Tylenol - PO 650 mg Q4H PRN Administration FEVER Albuterol Sulfate 1 amp 11/24/17 09:20 11/27/17 04:40 Ventolin 0.083% Nebulizer Soln - NEB 1 amp Q4H PRN Administration SHORT OF BREATH/WHEEZING Albuterol/Ipratropium 1 amp 11/24/17 16:00 11/28/17 11:06 Duoneb - NEB 1 amp RQID [facility] Administration Clonidine 0.3 mg 11/23/17 22:00 11/28/17 07:01 Catapres - PO 0.3 mg TID [facility] Administration Collagenase 1 applic 11/24/17 10:00 11/28/17 10:06 Santyl - TP 1 applic DAILY [facility] Administration Protocol Guaifenesin 10 ml 11/24/17 10:00 11/28/17 02:04 Diabetic Tussin Dm - PO 10 ml Q6H PRN Administration COUGH Heparin Sodium (Porcine) 5,000 unit 11/24/17 06:00 11/28/17 13:51 Heparin - SQ Not Given TID [facility] Hydralazine HCl 100 mg 11/23/17 22:00 11/28/17 13:50 Apresoline - PO Not Given TID [facility] Piperacillin Sod/Tazobactam 50 mls @ 100 mls/hr 11/24/17 18:00 11/28/17 09:51 Sod 2.25 gm/ Dextrose IVPB 100 mls/hr Q8H-IV [facility] Administration Protocol Sodium Chloride 250 mls @ 3,000 mls/hr 11/26/17 22:06 Normal Saline - IV 11/27/17 22:06 PRN PRN Hypotension during Dialysis Insulin Aspart 1 vial 11/23/17 22:00 11/28/17 11:53 Novolog Vial Sliding Scale - SQ 4 unit ACHS [facility] Administration Protocol Insulin Detemir 10 units 11/25/17 22:37 11/28/17 07:01 Levemir Vial SQ 10 units BID@0700,2200 [facility] Administration Labetalol HCl 500 mg 11/23/17 22:00 11/28/17 13:50 Normodyne - PO Not Given TID [facility] Losartan Potassium 100 mg 11/24/17 10:00 11/28/17 10:06 Cozaar - PO Not Given DAILY [facility] Nifedipine 90 mg 11/24/17 10:00 11/28/17 10:06 Procardia Xl - PO Not Given DAILY [facility] Oxycodone HCl 10 mg 11/23/17 18:07 11/28/17 09:52 Roxicodone - PO 10 mg Q6H PRN Administration PAIN LEVEL 4 - 6 Pantoprazole Sodium 20 mg 11/24/17 10:00 11/28/17 09:51 Protonix - PO 20 mg DAILY [facility] Administration ASSESSMENT/PLAN: Patient is a 27 year old female with past medical history of of ESRD on dialysis , diabetes, hypertension, PVD, atrial thrombus, PE (was on coumadin and eliquis and has since stopped) and chronic respiratory failure (on home oxygen). Patient presents to the [facility] for shortness of breath and increased weakness. Patient was recently discharged on 11/13/17 for pneumonia and completed IV antibiotics. 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 Pulm: Pneumonia, improving Chronic Respiratory failure/home oxygen dependent. On Zosyn. Overall improving. No wheezing auscultated. Back on home dose of 2 liter of nasal cannula. Monitor oxygen saturations to maintain goal of 92% on 2 liters. on duonebs. Card: Hypertension: Controlled on labetalol tid, clonidine tid, hydralazine tid, procardia, cozaar PE history: on no anticoagulation. Patient states she was treated with coumadin and eliquis and was told to stop taking both. No longer on any anticoagulation. Endocrine: ESRD on dialysis: renal following. dialysis per renal Endocrine: Diabetes: BGMs elevated, on Levemir. novolog ss. diabetic diet. Vascular Diabetic ulcers/Right foot wound: Right inner leg wound with large ulceration ( 9cmx3.5cm). wound care performed (cleansed with NS, xerofoam, livier). Outpatient follow up at wound care clinic encouraged. Will consult vascular for worsening right lower ext wounds. doppler negative for DVT of RLE fen tolerating PO monitor electrolytes diabetic diet prophy heparin full code Visit type - Emergency Visit Emergency Visit: Yes ED Registration Date: 11/23/17 Care time: The patient presented to the Emergency Department on the above date and was hospitalized for further evaluation of their emergent condition. - New Patient This patient is new to me today: No - Critical Care Critical Care patient: No - Discharge Referral Referred to [facility] Med P.C.: No
--- NOTE | 2017-11-28 19:52 | PN ---
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 Current Medications Acetaminophen (Tylenol -) 650 mg PO Q4H PRN PRN Reason: FEVER Last Admin: 11/28/17 09:53 Dose: 650 mg Albuterol Sulfate (Ventolin 0.083% Nebulizer Soln -) 1 amp NEB Q4H PRN PRN Reason: SHORT OF BREATH/WHEEZING Last Admin: 11/27/17 04:40 Dose: 1 amp Albuterol/Ipratropium (Duoneb -) 1 amp NEB RQID [facility] Last Admin: 11/28/17 19:12 Dose: 1 amp Clonidine (Catapres -) 0.3 mg PO TID [facility] Last Admin: 11/28/17 14:24 Dose: 0.3 mg Collagenase (Santyl -) 1 applic TP DAILY [facility]; Protocol Last Admin: 11/28/17 10:06 Dose: 1 applic Guaifenesin (Diabetic Tussin Dm -) 10 ml PO Q6H PRN PRN Reason: COUGH Last Admin: 11/28/17 02:04 Dose: 10 ml Heparin Sodium (Porcine) (Heparin -) 5,000 unit SQ TID [facility] Last Admin: 11/28/17 13:51 Dose: Not Given Hydralazine HCl (Apresoline -) 100 mg PO TID [facility] Last Admin: 11/28/17 13:50 Dose: Not Given Piperacillin Sod/Tazobactam (Sod 2.25 gm/ Dextrose) 50 mls @ 100 mls/hr IVPB Q8H-IV [facility]; Protocol Last Admin: 11/28/17 17:09 Dose: 100 mls/hr Sodium Chloride (Normal Saline -) 250 mls @ 3,000 mls/hr IV PRN PRN PRN Reason: Hypotension during Dialysis Stop: 11/27/17 22:06 Insulin Aspart (Novolog Vial Sliding Scale -) 1 vial SQ ACHS [facility]; Protocol Last Admin: 11/28/17 17:09 Dose: 8 unit Insulin Detemir (Levemir Vial) 10 units SQ BID@0700,2200 [facility] Last Admin: 11/28/17 07:01 Dose: 10 units Labetalol HCl (Normodyne -) 500 mg PO TID [facility] Last Admin: 11/28/17 13:50 Dose: Not Given Losartan Potassium (Cozaar -) 100 mg PO DAILY [facility] Last Admin: 11/28/17 10:06 Dose: Not Given Nifedipine (Procardia Xl -) 90 mg PO DAILY [facility] Last Admin: 11/28/17 10:06 Dose: Not Given Oxycodone HCl (Roxicodone -) 10 mg PO Q6H PRN PRN Reason: PAIN LEVEL 4 - 6 Last Admin: 11/28/17 09:52 Dose: 10 mg Pantoprazole Sodium (Protonix -) 20 mg PO DAILY [facility] Last Admin: 11/28/17 09:51 Dose: 20 mg Last Vital Signs Temp Pulse Resp BP Pulse Ox 97.4 F L 78 18 151/91 97 11/28/17 16:30 11/28/17 16:30 11/28/17 16:30 11/28/17 16:30 11/28/17 10:00 alert in nad lungs clear heart reg abd soft ext no edema CBC, BMP 11/27/17 07:00 11/27/17 07:00 IMP- ESRD on HD S/P Volume Overlaod LE wounds Hypertension Chronic Anemia DM on insulin Plan- maintenance HD tomorrow
[2017-11-28] MEDS ORDERED: diphenhydrAMINE HCL 25 MG CAPSULE (FP) PO ONE (22:28)
[2017-11-29] MEDS ORDERED: PIPERACILLIN/TAZOBACTAM 2.25 GM VIAL IVPB ONE ×3 (00:56→17:14)
[2017-11-29] MEDS ORDERED: DEXTROSE 5%-WATER - 50 ML IVPB ONE ×3 (00:56→17:14)
[2017-11-29] MEDS: PIPERACILLIN/TAZOB 2.25 GM 2.25 GM in DEXTROSE 5%-WATER - 50 ML IVPB SCH ×3 (01:06→17:34)
[2017-11-29] MEDS: LABETALOL HCL 200 MG TABLET (FP) PO SCH ×3 (05:58→22:13)
[2017-11-29] MEDS: cloNIDine HCL 0.1 MG TABLET PO SCH ×3 (05:58→22:13)
[2017-11-29] MEDS: HEPARIN NA (PORCINE) 5,000 UNITS/ML 1ML VIAL SQ SCH ×3 (05:58→22:12)
[2017-11-29] MEDS: hydrALAZINE HCL 50 MG TABLET (FP) PO SCH ×3 (05:58→22:13)
[2017-11-29] MEDS: oxyCODONE HCL 5 MG TABLET PO PRN ×2 (05:59→16:05)
[2017-11-29] MEDS: ACETAMINOPHEN 325 MG TABLET (FP) PO PRN ×2 (05:59→16:06)
[2017-11-29] MEDS: INSULIN (LEVEMIR) 100 UNITS/ML UNITS SQ SCH ×2 (06:01→22:12)
[2017-11-29] MEDS: INSULIN SLIDING SCALE (NOVOLOG) 1 VIAL SQ SCH ×4 (06:02→22:16)
[2017-11-29] MEDS ORDERED: INSULIN (NOVOLOG) ASPART 100 UNITS/ML 10ML VIAL ONE ×3 (06:58→22:15)
[2017-11-29] MEDS: ALBUTEROL SO4 2.5/IPRATROPIUM 0.5 INH SOL 3 ML VIAL.NEB. NEB SCH ×2 (07:13→11:11)
[2017-11-29] MEDS ORDERED: PT OWN MED DRAWER 7, Y5N ONE (09:33)
[2017-11-29] MEDS: PANTOPRAZOLE 20 MG TABLET (FP) PO SCH (10:56)
[2017-11-29] MEDS: NIFEdipine E.R. 90 MG TABLET (FP) PO SCH (10:56)
[2017-11-29] MEDS: COLLAGENASE CLOSTRIDIUM HIST. 30 GRAMS TUBE TP SCH (10:56)
[2017-11-29] MEDS: LOSARTAN POTASSIUM 50 MG TABLET (FP) PO SCH (10:56)
--- NOTE | 2017-11-29 10:56 | PN ---
Progress Note, Physician Chief Complaint: PULMONARY ALERT,ON HD,-SOB,-COUGH - Current Medication List Current Medications: Active Medications Acetaminophen (Tylenol -) 650 mg PO Q4H PRN PRN Reason: FEVER Last Admin: 11/29/17 05:59 Dose: 650 mg Albuterol/Ipratropium (Duoneb -) 1 amp NEB RQID [facility] Last Admin: 11/29/17 07:13 Dose: 1 amp Clonidine (Catapres -) 0.3 mg PO TID [facility] Last Admin: 11/29/17 05:58 Dose: 0.3 mg Collagenase (Santyl -) 1 applic TP DAILY [facility]; Protocol Last Admin: 11/28/17 10:06 Dose: 1 applic Guaifenesin (Diabetic Tussin Dm -) 10 ml PO Q6H PRN PRN Reason: COUGH Last Admin: 11/28/17 02:04 Dose: 10 ml Heparin Sodium (Porcine) (Heparin -) 5,000 unit SQ TID [facility] Last Admin: 11/29/17 05:58 Dose: Not Given Hydralazine HCl (Apresoline -) 100 mg PO TID [facility] Last Admin: 11/29/17 05:58 Dose: Not Given Piperacillin Sod/Tazobactam (Sod 2.25 gm/ Dextrose) 50 mls @ 100 mls/hr IVPB Q8H-IV [facility]; Protocol Last Admin: 11/29/17 01:06 Dose: 100 mls/hr Sodium Chloride (Normal Saline -) 250 mls @ 3,000 mls/hr IV PRN PRN PRN Reason: Hypotension during Dialysis Stop: 11/27/17 22:06 Insulin Aspart (Novolog Vial Sliding Scale -) 1 vial SQ ACHS [facility]; Protocol Last Admin: 11/29/17 06:02 Dose: 10 unit Insulin Detemir (Levemir Vial) 10 units SQ BID@0700,2200 [facility] Last Admin: 11/29/17 06:01 Dose: 10 units Labetalol HCl (Normodyne -) 500 mg PO TID [facility] Last Admin: 11/29/17 05:58 Dose: Not Given Losartan Potassium (Cozaar -) 100 mg PO DAILY [facility] Last Admin: 11/28/17 10:06 Dose: Not Given Nifedipine (Procardia Xl -) 90 mg PO DAILY [facility] Last Admin: 11/28/17 10:06 Dose: Not Given Oxycodone HCl (Roxicodone -) 10 mg PO Q6H PRN PRN Reason: PAIN LEVEL 4 - 6 Last Admin: 11/29/17 05:59 Dose: 10 mg Pantoprazole Sodium (Protonix -) 20 mg PO DAILY [facility] Last Admin: 11/28/17 09:51 Dose: 20 mg - Objective Vital Signs: Vital Signs Temperature 98.0 F 11/29/17 06:00 Pulse Rate 78 11/29/17 06:00 Respiratory Rate 18 11/29/17 06:00 Blood Pressure 132/78 11/29/17 06:00 O2 Sat by Pulse Oximetry (%) 97 11/28/17 21:00 Constitutional: Yes: Well Nourished, Calm Eyes: Yes: WNL HENT: Yes: WNL Neck: Yes: WNL Cardiovascular: Yes: Regular Rate and Rhythm, S1, S2 Respiratory: Yes: Diminished, Rhonchi (FEW RHONCHI) Gastrointestinal: Yes: Normal Bowel Sounds, Soft Extremities: Yes: WNL Edema: Yes Labs: CBC, BMP 11/28/17 08:45 11/28/17 08:45 INR, PTT INR 1.50 (0.83-1.09) H 11/23/17 16:18 Problem List - Problems (1) Pneumonia Code(s): J18.9 - PNEUMONIA, UNSPECIFIED ORGANISM (2) Ulcer of right leg Code(s): L97.919 - NON-PRS CHRONIC ULC UNSP PRT OF R LOW LEG W UNSP SEVERITY (3) Cardiac arrest Code(s): I46.9 - CARDIAC ARREST, CAUSE UNSPECIFIED (4) Anemia Code(s): D64.9 - ANEMIA, UNSPECIFIED Qualifiers: Folate deficiency anemia type: dietary (5) ESRD (end stage renal disease) on dialysis Code(s): N18.6 - END STAGE RENAL DISEASE; Z99.2 - DEPENDENCE ON RENAL DIALYSIS (6) Gastroparesis Code(s): K31.84 - GASTROPARESIS (7) HTN (hypertension) Code(s): I10 - ESSENTIAL (PRIMARY) HYPERTENSION (8) SOB (shortness of breath) Code(s): R06.02 - SHORTNESS OF BREATH (10) Fluid overload Code(s): E87.70 - FLUID OVERLOAD, UNSPECIFIED (11) Anemia Code(s): D64.9 - ANEMIA, UNSPECIFIED Assessment/Plan IMP ACUTE RESPIRATORY DISTRESS IMPROVED PNEUMONIA CLINICALLY IMPROVED CHF/FLUID OVERLOAD IMPROVING ESRD ON HD ATRIAL THROMBUS IDDM H/O DVT/PE RLE WOUND H/O CARDIAC ARREST PLAN ABX PER ID INHALED BRONCHODILATORS' O2 F/U CHEST X-RAY WOUND CARE HD PER RENAL GLYCEMIC CONTROL DR BECERRA Problem List - Problems (1) Pneumonia Code(s): J18.9 - PNEUMONIA, UNSPECIFIED ORGANISM (2) Ulcer of right leg Code(s): L97.919 - NON-PRS CHRONIC ULC UNSP PRT OF R LOW LEG W UNSP SEVERITY (3) Cardiac arrest Code(s): I46.9 - CARDIAC ARREST, CAUSE UNSPECIFIED (4) Anemia Code(s): D64.9 - ANEMIA, UNSPECIFIED Qualifiers: Folate deficiency anemia type: dietary (5) ESRD (end stage renal disease) on dialysis Code(s): N18.6 - END STAGE RENAL DISEASE; Z99.2 - DEPENDENCE ON RENAL DIALYSIS (6) Gastroparesis Code(s): K31.84 - GASTROPARESIS (7) HTN (hypertension) Code(s): I10 - ESSENTIAL (PRIMARY) HYPERTENSION (8) SOB (shortness of breath) Code(s): R06.02 - SHORTNESS OF BREATH (10) Fluid overload Code(s): E87.70 - FLUID OVERLOAD, UNSPECIFIED (11) Anemia Code(s): D64.9 - ANEMIA, UNSPECIFIED
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
[2017-11-29] MEDS ORDERED: SODIUM CHLORIDE 250 ML IV PRN (12:11)
[2017-11-29 12:20] LABS: BASO % 0.8 % (0-2.0); EOS % 2.7 % (0-4.5); HEMATOCRIT 28.8 % (32.4-45.2); HEMOGLOBIN 8.9 GM/dL (10.7-15.3); LYMPH % 11.4 % (8-40); MCH 26.1 pg (25.7-33.7); MEAN CELL VOLUME 84.2 fl (80-96); MEAN PLT VOLUME 8.6 fl (7.5-11.1); MONO % 15.8 % (3.8-10.2); NEUT % 69.3 % (42.8-82.8); PLATELET COUNT 539 K/MM3 (134-434); RBC 3.42 M/mm3 (3.60-5.2); RDW 17.5 % (11.6-15.6); WHITE BLOOD COUNT 13.5 K/mm3 (4.0-10.0)
[2017-11-29] MEDS ORDERED: EPOETIN ALFA 20,000 UNIT/1 ML VIAL IVPUSH ONE (12:30)
[2017-11-29 12:43] LABS: ALBUMIN 2.6 g/dl (3.4-5.0); ANION GAP 14 MMOL/L (8-16); BLOOD UREA NITROGEN 54 mg/dL (7-18); CALCIUM 8.7 mg/dL (8.5-10.1); CHLORIDE 91 mmol/L (98-107); CO2 26 mmol/L (21-32); GLUCOSE,RANDOM 238 mg/dL (74-106); POTASSIUM 4.8 mmol/L (3.5-5.1); SGOT/AST 13 U/L (15-37); SGPT/ALT 6 U/L (12-78); SODIUM 131 mmol/L (136-145)
[2017-11-29 12:52] LABS: ALK PHOS 824 U/L (45-117); BILIRUBIN,TOTAL 0.5 mg/dL (0.2-1.0); CREATININE 6.5 mg/dL (0.55-1.02)
--- NOTE | 2017-11-29 13:49 | PN ---
Progress Note, Physician History of Present Illness: continues to improve all results noted dialysis being tolerated patient feels more better - Current Medication List Current Medications: Active Medications Acetaminophen (Tylenol -) 650 mg PO Q4H PRN PRN Reason: FEVER Last Admin: 11/29/17 05:59 Dose: 650 mg Albuterol/Ipratropium (Duoneb -) 1 amp NEB RQID [facility] Last Admin: 11/29/17 11:11 Dose: 1 amp Clonidine (Catapres -) 0.3 mg PO TID [facility] Last Admin: 11/29/17 05:58 Dose: 0.3 mg Collagenase (Santyl -) 1 applic TP DAILY [facility]; Protocol Last Admin: 11/29/17 10:56 Dose: 1 applic Guaifenesin (Diabetic Tussin Dm -) 10 ml PO Q6H PRN PRN Reason: COUGH Last Admin: 11/28/17 02:04 Dose: 10 ml Heparin Sodium (Porcine) (Heparin -) 5,000 unit SQ TID [facility] Last Admin: 11/29/17 05:58 Dose: Not Given Hydralazine HCl (Apresoline -) 100 mg PO TID [facility] Last Admin: 11/29/17 05:58 Dose: Not Given Piperacillin Sod/Tazobactam (Sod 2.25 gm/ Dextrose) 50 mls @ 100 mls/hr IVPB Q8H-IV [facility]; Protocol Last Admin: 11/29/17 01:06 Dose: 100 mls/hr Sodium Chloride (Normal Saline -) 250 mls @ 3,000 mls/hr IV PRN PRN PRN Reason: Hypotension during Dialysis Stop: 11/30/17 12:11 Insulin Aspart (Novolog Vial Sliding Scale -) 1 vial SQ ACHS [facility]; Protocol Last Admin: 11/29/17 12:44 Dose: Not Given Insulin Detemir (Levemir Vial) 10 units SQ BID@0700,2200 [facility] Last Admin: 11/29/17 06:01 Dose: 10 units Labetalol HCl (Normodyne -) 500 mg PO TID [facility] Last Admin: 11/29/17 05:58 Dose: Not Given Losartan Potassium (Cozaar -) 100 mg PO DAILY [facility] Last Admin: 11/29/17 10:56 Dose: Not Given Nifedipine (Procardia Xl -) 90 mg PO DAILY [facility] Last Admin: 11/29/17 10:56 Dose: Not Given Oxycodone HCl (Roxicodone -) 10 mg PO Q6H PRN PRN Reason: PAIN LEVEL 4 - 6 Last Admin: 11/29/17 05:59 Dose: 10 mg Pantoprazole Sodium (Protonix -) 20 mg PO DAILY [facility] Last Admin: 11/29/17 10:56 Dose: 20 mg - Objective Vital Signs: Vital Signs Temperature 98.2 F 11/29/17 10:55 Pulse Rate 101 H 11/29/17 12:30 Respiratory Rate 18 11/29/17 12:30 Blood Pressure 160/8 11/29/17 12:30 O2 Sat by Pulse Oximetry (%) 97 11/29/17 10:00 Constitutional: Yes: No Distress, Calm Cardiovascular: Yes: Regular Rate and Rhythm Respiratory: Yes: Regular, Poor Air Entry Gastrointestinal: Yes: Normal Bowel Sounds, Soft Musculoskeletal: Yes: WNL Extremities: Yes: Other Neurological: Yes: Alert, Oriented Psychiatric: Yes: Alert, Oriented Labs: CBC, BMP 11/29/17 11:10 11/29/17 11:10 INR, PTT INR 1.50 (0.83-1.09) H 11/23/17 16:18 Assessment/Plan Problem List - Problems (1) Pneumonia Code(s): J18.9 - PNEUMONIA, UNSPECIFIED ORGANISM (2) Ulcer of right leg Code(s): L97.919 - NON-PRS CHRONIC ULC UNSP PRT OF R LOW LEG W UNSP SEVERITY (3) Cardiac arrest Code(s): I46.9 - CARDIAC ARREST, CAUSE UNSPECIFIED (4) Anemia Code(s): D64.9 - ANEMIA, UNSPECIFIED Qualifiers: Folate deficiency anemia type: dietary (5) ESRD (end stage renal disease) on dialysis Code(s): N18.6 - END STAGE RENAL DISEASE; Z99.2 - DEPENDENCE ON RENAL DIALYSIS (6) Gastroparesis Code(s): K31.84 - GASTROPARESIS (7) HTN (hypertension) Code(s): I10 - ESSENTIAL (PRIMARY) HYPERTENSION (8) SOB (shortness of breath) Code(s): R06.02 - SHORTNESS OF BREATH (10) Fluid overload Code(s): E87.70 - FLUID OVERLOAD, UNSPECIFIED (11) Anemia Code(s): D64.9 - ANEMIA, UNSPECIFIED plan continue abx continue resp support will switch to oral abx tomorrow rest as per the teams
[2017-11-29] MEDS ORDERED: GABAPENTIN 100 MG CAPSULE (FP) PO ONE ×2 (13:53→14:40)
--- NOTE | 2017-11-29 14:43 | PN ---
Progress Note (short form) - Note Progress Note: Renal follow up for ESRD on HD Pt seen and examined during dialysis BP high, access with good function UF goal is 3L c/o pain in both legs no sob, cp, abd pain Vital Signs Temperature 98.4 F 11/29/17 14:00 Pulse Rate 100 H 11/29/17 14:30 Respiratory Rate 18 11/29/17 14:30 Blood Pressure 150/108 11/29/17 14:30 O2 Sat by Pulse Oximetry (%) 97 11/29/17 10:00 Intake & Output 11/26/17 11/27/17 11/28/17 11/29/17 23:59 23:59 23:59 23:59 Intake Total 900 301 809 1871 Balance 900 019 010 8611 Weight 61.144 kg NAD alert MMM, No JVD Dec BS at lung bases + edema in LE CBC, BMP 11/29/17 11:10 11/29/17 11:10 Current Medications Acetaminophen (Tylenol -) 650 mg PO Q4H PRN PRN Reason: FEVER Last Admin: 11/29/17 05:59 Dose: 650 mg Albuterol/Ipratropium (Duoneb -) 1 amp NEB RQID [facility] Last Admin: 11/29/17 11:11 Dose: 1 amp Clonidine (Catapres -) 0.3 mg PO TID [facility] Last Admin: 11/29/17 14:19 Dose: 0.3 mg Collagenase (Santyl -) 1 applic TP DAILY [facility]; Protocol Last Admin: 11/29/17 10:56 Dose: 1 applic Gabapentin (Neurontin -) 300 mg PO DAILY [facility] Guaifenesin (Diabetic Tussin Dm -) 10 ml PO Q6H PRN PRN Reason: COUGH Last Admin: 11/28/17 02:04 Dose: 10 ml Heparin Sodium (Porcine) (Heparin -) 5,000 unit SQ TID [facility] Last Admin: 11/29/17 14:17 Dose: Not Given Hydralazine HCl (Apresoline -) 100 mg PO TID [facility] Last Admin: 11/29/17 05:58 Dose: Not Given Piperacillin Sod/Tazobactam (Sod 2.25 gm/ Dextrose) 50 mls @ 100 mls/hr IVPB Q8H-IV [facility]; Protocol Last Admin: 11/29/17 14:16 Dose: Not Given Sodium Chloride (Normal Saline -) 250 mls @ 3,000 mls/hr IV PRN PRN PRN Reason: Hypotension during Dialysis Stop: 11/30/17 12:11 Insulin Aspart (Novolog Vial Sliding Scale -) 1 vial SQ ACHS [facility]; Protocol Last Admin: 11/29/17 12:44 Dose: Not Given Insulin Detemir (Levemir Vial) 10 units SQ BID@0700,2200 [facility] Last Admin: 11/29/17 06:01 Dose: 10 units Labetalol HCl (Normodyne -) 500 mg PO TID [facility] Last Admin: 11/29/17 05:58 Dose: Not Given Losartan Potassium (Cozaar -) 100 mg PO DAILY [facility] Last Admin: 11/29/17 10:56 Dose: Not Given Nifedipine (Procardia Xl -) 90 mg PO DAILY [facility] Last Admin: 11/29/17 10:56 Dose: Not Given Oxycodone HCl (Roxicodone -) 10 mg PO Q6H PRN PRN Reason: PAIN LEVEL 4 - 6 Last Admin: 11/29/17 05:59 Dose: 10 mg Pantoprazole Sodium (Protonix -) 20 mg PO DAILY [facility] Last Admin: 11/29/17 10:56 Dose: 20 mg 27 year old woman with hx of ESRD on HD, IDDM, PVD, Hypertension, Hx of Cardiac Arrest, Recent PNA presents with SOB and lethargy and found to have mild volume overload. #ESRD on HD #Volume Overlaod #LE wounds #Hypertension #Chronic Anemia #DM on insulin tolerating dialysis continue oral antihypertensives restart gabapentin at 300mg daily continue abx as per ID continue MACIE with HD Nathan Vo DO
--- NOTE | 2017-11-29 16:36 | PN ---
Physical Exam: SUBJECTIVE: Patient seen and examined. Pt feeling well. OBJECTIVE: Vital Signs Period Temp Pulse Resp BP Sys/Ames Pulse Ox Last 24 Hr 98.0 F-99.1 F 78-103 16-19 126-174/8-108 97-97 PE Neuro: alert, awake, cn 2-12intact Pulm: course bases, no crackles, + nc CV: s1 s2 rrr 3/6 murmur Abd: s nd nt +bs Ext: RLE dressing in tact +3 edema Laboratory Results - last 24 hr 11/29/17 11/29/17 11/29/17 11:10 11:10 11:59 WBC 13.5 H RBC 3.42 L Hgb 8.9 L Hct 28.8 L MCV 84.2 MCH 26.1 MCHC 31.0 L RDW 17.5 H Plt Count 539 H MPV 8.6 Absolute Neuts (auto) 9.4 H Neutrophils % 69.3 Lymphocytes % 11.4 D Monocytes % 15.8 H Eosinophils % 2.7 Basophils % 0.8 Nucleated RBC % 0 Sodium 131 L Potassium 4.8 Chloride 91 L Carbon Dioxide 26 Anion Gap 14 BUN 54 H Creatinine 6.5 H Creat Clearance w eGFR 7.61 POC Glucometer 249 Random Glucose 238 H Calcium 8.7 Total Bilirubin 0.5 AST 13 L ALT 6 L Alkaline Phosphatase 824 H D Total Protein 8.0 Albumin 2.6 L Active Medications Generic Name Dose Route Start Last Admin Trade Name Freq PRN Reason Stop Dose Admin Acetaminophen 650 mg 11/23/17 18:37 11/29/17 16:06 Tylenol - PO 650 mg Q4H PRN Administration FEVER Clonidine 0.3 mg 11/23/17 22:00 11/29/17 14:19 Catapres - PO 0.3 mg TID [facility] Administration Collagenase 1 applic 11/24/17 10:00 11/29/17 10:56 Santyl - TP 1 applic DAILY [facility] Administration Protocol Gabapentin 300 mg 11/30/17 10:00 Neurontin - PO DAILY [facility] Guaifenesin 10 ml 11/24/17 10:00 11/28/17 02:04 Diabetic Tussin Dm - PO 10 ml Q6H PRN Administration COUGH Heparin Sodium (Porcine) 5,000 unit 11/24/17 06:00 11/29/17 14:17 Heparin - SQ Not Given TID [facility] Hydralazine HCl 100 mg 11/23/17 22:00 11/29/17 05:58 Apresoline - PO Not Given TID [facility] Piperacillin Sod/Tazobactam 50 mls @ 100 mls/hr 11/24/17 18:00 11/29/17 14:16 Sod 2.25 gm/ Dextrose IVPB Not Given Q8H-IV [facility] Protocol Sodium Chloride 250 mls @ 3,000 mls/hr 11/29/17 12:11 Normal Saline - IV 11/30/17 12:11 PRN PRN Hypotension during Dialysis Insulin Aspart 1 vial 11/23/17 22:00 11/29/17 12:44 Novolog Vial Sliding Scale - SQ Not Given ACHS [facility] Protocol Insulin Detemir 10 units 11/25/17 22:37 11/29/17 06:01 Levemir Vial SQ 10 units BID@0700,2200 [facility] Administration Labetalol HCl 500 mg 11/23/17 22:00 11/29/17 05:58 Normodyne - PO Not Given TID [facility] Losartan Potassium 100 mg 11/24/17 10:00 11/29/17 10:56 Cozaar - PO Not Given DAILY [facility] Nifedipine 90 mg 11/24/17 10:00 11/29/17 10:56 Procardia Xl - PO Not Given DAILY [facility] Oxycodone HCl 10 mg 11/23/17 18:07 11/29/17 16:05 Roxicodone - PO 10 mg Q6H PRN Administration PAIN LEVEL 4 - 6 Pantoprazole Sodium 20 mg 11/24/17 10:00 11/29/17 10:56 Protonix - PO 20 mg DAILY [facility] Administration Assessment: 27 year old female with a history of ESRD, type 1 DM, HTN, PAD, chronic hypoxic respiratory failure, PE, anemia who presented to the ED with SOB and cough. Plan: 1. Sepsis secondary to pneumonia - Afebrile - Continue zosyn - PO abx tomorrow per ID 2. ESRD - HD today - Restart Neurontin 300mg daily - D/w Renal 3. HTN - Controlled - Continue Clonidine, Hydralazine, Procardia XL, Cozaar, Labetalol 4. Type 1 DM - Continue Levemir, Novolog sliding scale 5. Chronic hypoxic respiratory failure - Continue oxygen 6. Reactive thrombocytosis - Plts downtrended 7. Right foot diabetic ulcer - Continue wound care with Santyl 8. History of PE 9. Anemia secondary to ESRD - Continue Epogen Dispo: - SNF tomorrow Problem List - Problems (1) Pneumonia Code(s): J18.9 - PNEUMONIA, UNSPECIFIED ORGANISM (2) Ulcer of right leg Code(s): L97.919 - NON-PRS CHRONIC ULC UNSP PRT OF R LOW LEG W UNSP SEVERITY (3) Anemia Code(s): D64.9 - ANEMIA, UNSPECIFIED Qualifiers: Folate deficiency anemia type: dietary (4) Diabetes mellitus, insulin dependent (IDDM), uncontrolled Code(s): E10.65 - TYPE 1 DIABETES MELLITUS WITH HYPERGLYCEMIA (5) ESRD (end stage renal disease) on dialysis Code(s): N18.6 - END STAGE RENAL DISEASE; Z99.2 - DEPENDENCE ON RENAL DIALYSIS Visit type - Emergency Visit Emergency Visit: Yes ED Registration Date: 11/23/17 Care time: The patient presented to the Emergency Department on the above date and was hospitalized for further evaluation of their emergent condition. - New Patient This patient is new to me today: No - Critical Care Critical Care patient: No
[2017-11-30] MEDS ORDERED: DEXTROSE 5%-WATER - 50 ML IVPB ONE ×3 (00:04→17:33)
[2017-11-30] MEDS ORDERED: PIPERACILLIN/TAZOBACTAM 2.25 GM VIAL IVPB ONE ×3 (00:04→17:32)
[2017-11-30] MEDS: PIPERACILLIN/TAZOB 2.25 GM 2.25 GM in DEXTROSE 5%-WATER - 50 ML IVPB SCH ×3 (01:02→17:42)
[2017-11-30] MEDS: oxyCODONE HCL 5 MG TABLET PO PRN ×2 (01:02→09:47)
[2017-11-30] MEDS: ACETAMINOPHEN 325 MG TABLET (FP) PO PRN ×2 (01:02→09:48)
[2017-11-30] MEDS: INSULIN (LEVEMIR) 100 UNITS/ML UNITS SQ SCH (06:04)
[2017-11-30] MEDS: LABETALOL HCL 200 MG TABLET (FP) PO SCH ×2 (06:05→15:22)
[2017-11-30] MEDS: cloNIDine HCL 0.1 MG TABLET PO SCH ×2 (06:06→15:17)
[2017-11-30] MEDS: INSULIN SLIDING SCALE (NOVOLOG) 1 VIAL SQ SCH ×3 (06:06→17:09)
[2017-11-30] MEDS: HEPARIN NA (PORCINE) 5,000 UNITS/ML 1ML VIAL SQ SCH ×2 (06:06→15:21)
[2017-11-30] MEDS: hydrALAZINE HCL 50 MG TABLET (FP) PO SCH ×2 (06:06→15:21)
[2017-11-30] MEDS ORDERED: INSULIN (LEVEMIR) 100 UNITS/ML UNITS SQ ONE (06:08)
[2017-11-30] MEDS: NIFEdipine E.R. 90 MG TABLET (FP) PO SCH ×2 (09:46→09:52)
[2017-11-30] MEDS: COLLAGENASE CLOSTRIDIUM HIST. 30 GRAMS TUBE TP SCH (09:46)
[2017-11-30] MEDS: PANTOPRAZOLE 20 MG TABLET (FP) PO SCH (09:46)
[2017-11-30] MEDS: LOSARTAN POTASSIUM 50 MG TABLET (FP) PO SCH ×2 (09:46→09:52)
[2017-11-30] MEDS ORDERED: GABAPENTIN 300 MG CAPSULE (FP) PO SCH (10:00)
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
[2017-11-30] MEDS ORDERED: SILVER SULFADIAZINE 1% TOP CREAM 50 GM JAR TP SCH (10:45)
--- NOTE | 2017-11-30 12:03 | PN ---
Progress Note, Physician - Current Medication List Current Medications: Active Medications Acetaminophen (Tylenol -) 650 mg PO Q4H PRN PRN Reason: FEVER Last Admin: 11/30/17 09:48 Dose: 650 mg Clonidine (Catapres -) 0.3 mg PO TID [facility] Last Admin: 11/30/17 06:06 Dose: Not Given Collagenase (Santyl -) 1 applic TP DAILY [facility]; Protocol Last Admin: 11/30/17 09:46 Dose: Not Given Gabapentin (Neurontin -) 300 mg PO DAILY [facility] Last Admin: 11/30/17 09:46 Dose: 300 mg Guaifenesin (Diabetic Tussin Dm -) 10 ml PO Q6H PRN PRN Reason: COUGH Last Admin: 11/28/17 02:04 Dose: 10 ml Heparin Sodium (Porcine) (Heparin -) 5,000 unit SQ TID [facility] Last Admin: 11/30/17 06:06 Dose: Not Given Hydralazine HCl (Apresoline -) 100 mg PO TID [facility] Last Admin: 11/30/17 06:06 Dose: Not Given Piperacillin Sod/Tazobactam (Sod 2.25 gm/ Dextrose) 50 mls @ 100 mls/hr IVPB Q8H-IV [facility]; Protocol Last Admin: 11/30/17 09:46 Dose: 100 mls/hr Sodium Chloride (Normal Saline -) 250 mls @ 3,000 mls/hr IV PRN PRN PRN Reason: Hypotension during Dialysis Stop: 11/30/17 12:11 Insulin Aspart (Novolog Vial Sliding Scale -) 1 vial SQ ACHS [facility]; Protocol Last Admin: 11/30/17 06:06 Dose: Not Given Insulin Detemir (Levemir Vial) 10 units SQ BID@0700,2200 [facility] Last Admin: 11/30/17 06:04 Dose: 10 units Labetalol HCl (Normodyne -) 500 mg PO TID [facility] Last Admin: 11/30/17 06:05 Dose: Not Given Losartan Potassium (Cozaar -) 100 mg PO DAILY [facility] Last Admin: 11/30/17 09:52 Dose: Not Given Nifedipine (Procardia Xl -) 90 mg PO DAILY [facility] Last Admin: 11/30/17 09:52 Dose: Not Given Oxycodone HCl (Roxicodone -) 10 mg PO Q6H PRN PRN Reason: PAIN LEVEL 4 - 6 Last Admin: 11/30/17 09:47 Dose: 10 mg Pantoprazole Sodium (Protonix -) 20 mg PO DAILY [facility] Last Admin: 11/30/17 09:46 Dose: 20 mg Silver Sulfadiazine (Silvadene -) 1 applic TP DAILY [facility] - Objective Vital Signs: Vital Signs Temperature 98.9 F 11/30/17 06:00 Pulse Rate 90 11/30/17 06:00 Respiratory Rate 20 11/30/17 06:00 Blood Pressure 122/69 11/30/17 06:00 O2 Sat by Pulse Oximetry (%) 97 11/29/17 21:00 Constitutional: Yes: Well Nourished, Calm Eyes: Yes: WNL HENT: Yes: WNL Neck: Yes: WNL Cardiovascular: Yes: Regular Rate and Rhythm, S1, S2 Respiratory: Yes: Rhonchi (FEW RHONCHI) Gastrointestinal: Yes: Normal Bowel Sounds, Soft Extremities: Yes: WNL Edema: Yes Labs: CBC, BMP INR 1.50 (0.83-1.09) H 11/23/17 16:18 Problem List - Problems (1) Pneumonia Code(s): J18.9 - PNEUMONIA, UNSPECIFIED ORGANISM (2) Ulcer of right leg Code(s): L97.919 - NON-PRS CHRONIC ULC UNSP PRT OF R LOW LEG W UNSP SEVERITY (3) Cardiac arrest Code(s): I46.9 - CARDIAC ARREST, CAUSE UNSPECIFIED (4) Anemia Code(s): D64.9 - ANEMIA, UNSPECIFIED Qualifiers: Folate deficiency anemia type: dietary (5) ESRD (end stage renal disease) on dialysis Code(s): N18.6 - END STAGE RENAL DISEASE; Z99.2 - DEPENDENCE ON RENAL DIALYSIS (6) Gastroparesis Code(s): K31.84 - GASTROPARESIS (7) HTN (hypertension) Code(s): I10 - ESSENTIAL (PRIMARY) HYPERTENSION (8) SOB (shortness of breath) Code(s): R06.02 - SHORTNESS OF BREATH (10) Fluid overload Code(s): E87.70 - FLUID OVERLOAD, UNSPECIFIED (11) Anemia Code(s): D64.9 - ANEMIA, UNSPECIFIED Assessment/Plan IMP ACUTE RESPIRATORY DISTRESS IMPROVED PNEUMONIA CLINICALLY IMPROVED CHF/FLUID OVERLOAD IMPROVING ESRD ON HD ATRIAL THROMBUS IDDM H/O DVT/PE RLE WOUND H/O CARDIAC ARREST PLAN ABX PER ID INHALED BRONCHODILATORS' O2 F/U CHEST X-RAY WOUND CARE HD PER RENAL GLYCEMIC CONTROL DR BECERRA Problem List - Problems (1) Pneumonia Code(s): J18.9 - PNEUMONIA, UNSPECIFIED ORGANISM (2) Ulcer of right leg Code(s): L97.919 - NON-PRS CHRONIC ULC UNSP PRT OF R LOW LEG W UNSP SEVERITY (3) Cardiac arrest Code(s): I46.9 - CARDIAC ARREST, CAUSE UNSPECIFIED (4) Anemia Code(s): D64.9 - ANEMIA, UNSPECIFIED Qualifiers: Folate deficiency anemia type: dietary (5) ESRD (end stage renal disease) on dialysis Code(s): N18.6 - END STAGE RENAL DISEASE; Z99.2 - DEPENDENCE ON RENAL DIALYSIS (6) Gastroparesis Code(s): K31.84 - GASTROPARESIS (7) HTN (hypertension) Code(s): I10 - ESSENTIAL (PRIMARY) HYPERTENSION (8) SOB (shortness of breath) Code(s): R06.02 - SHORTNESS OF BREATH (10) Fluid overload Code(s): E87.70 - FLUID OVERLOAD, UNSPECIFIED (11) Anemia Code(s): D64.9 - ANEMIA, UNSPECIFIED
[2017-11-30] MEDS ORDERED: INSULIN (NOVOLOG) ASPART 100 UNITS/ML 10ML VIAL ONE (12:06)
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
[2017-11-30 15:16] VITALS: BP 149/90; PULSE 88; TEMP 97.4
--- NOTE | 2017-11-30 15:29 | PN ---
Progress Note (short form) - Note Progress Note: Renal follow up for ESRD on HD Pt seen and examined at the bedside no acute complaints no sob, cp, abd pain, N/V/D Vital Signs Temperature 97.4 F L 11/30/17 14:00 Pulse Rate 88 11/30/17 14:00 Respiratory Rate 18 11/30/17 14:00 Blood Pressure 149/90 11/30/17 14:00 O2 Sat by Pulse Oximetry (%) 97 11/30/17 09:00 Intake & Output 11/27/17 11/28/17 11/29/17 11/30/17 23:59 23:59 23:59 23:59 Intake Total 777 691 0799 990 Balance 261 309 6581 990 Weight 61.144 kg NAD alert MMM, No JVD Dec BS at lung bases + edema in LE CBC, BMP 11/29/17 11:10 11/29/17 11:10 Current Medications Acetaminophen (Tylenol -) 650 mg PO Q4H PRN PRN Reason: FEVER Last Admin: 11/30/17 09:48 Dose: 650 mg Clonidine (Catapres -) 0.3 mg PO TID [facility] Last Admin: 11/30/17 15:17 Dose: 0.3 mg Collagenase (Santyl -) 1 applic TP DAILY [facility]; Protocol Last Admin: 11/30/17 09:46 Dose: Not Given Gabapentin (Neurontin -) 300 mg PO DAILY [facility] Last Admin: 11/30/17 09:46 Dose: 300 mg Guaifenesin (Diabetic Tussin Dm -) 10 ml PO Q6H PRN PRN Reason: COUGH Last Admin: 11/28/17 02:04 Dose: 10 ml Heparin Sodium (Porcine) (Heparin -) 5,000 unit SQ TID [facility] Last Admin: 11/30/17 15:21 Dose: Not Given Hydralazine HCl (Apresoline -) 100 mg PO TID [facility] Last Admin: 11/30/17 15:21 Dose: Not Given Piperacillin Sod/Tazobactam (Sod 2.25 gm/ Dextrose) 50 mls @ 100 mls/hr IVPB Q8H-IV [facility]; Protocol Last Admin: 11/30/17 09:46 Dose: 100 mls/hr Insulin Aspart (Novolog Vial Sliding Scale -) 1 vial SQ ACHS [facility]; Protocol Last Admin: 11/30/17 12:13 Dose: 8 unit Insulin Detemir (Levemir Vial) 10 units SQ BID@0700,2200 [facility] Last Admin: 11/30/17 06:04 Dose: 10 units Labetalol HCl (Normodyne -) 500 mg PO TID [facility] Last Admin: 11/30/17 15:22 Dose: Not Given Losartan Potassium (Cozaar -) 100 mg PO DAILY [facility] Last Admin: 11/30/17 09:52 Dose: Not Given Nifedipine (Procardia Xl -) 90 mg PO DAILY [facility] Last Admin: 11/30/17 09:52 Dose: Not Given Oxycodone HCl (Roxicodone -) 10 mg PO Q6H PRN PRN Reason: PAIN LEVEL 4 - 6 Last Admin: 11/30/17 09:47 Dose: 10 mg Pantoprazole Sodium (Protonix -) 20 mg PO DAILY [facility] Last Admin: 11/30/17 09:46 Dose: 20 mg Silver Sulfadiazine (Silvadene -) 1 applic TP DAILY [facility] Last Admin: 11/30/17 12:08 Dose: Not Given 27 year old woman with hx of ESRD on HD, IDDM, PVD, Hypertension, Hx of Cardiac Arrest, Recent PNA presents with SOB and lethargy and found to have mild volume overload. #ESRD on HD #Volume Overlaod #LE wounds #Hypertension #Chronic Anemia #DM on insulin s/p dialysis yesterday, no acute indication for [employer] today continue medical mangement as per primary team will continue MACIE wit HD Continue present BP meds Renal diet, 1.2L diet Nathan Vo DO
[2017-11-30] MEDS ORDERED: ALBUTEROL SO4 2.5/IPRATROPIUM 0.5 INH SOL 3 ML VIAL.NEB. NEB ONE (19:15)
[2017-12-01 00:07] LABS: HBSAG SCREEN Negative (Negative); HEP A AB, IGM Negative (Negative); HEP B CORE AB, TOT Negative (Negative)
--- NOTE | 2017-12-02 10:49 | PN ---
Progress Note, Physician History of Present Illness: stable doing well breathing much better does not want to go to rehab prefers home - Objective Vital Signs: Vital Signs Temperature 97.4 F L 11/30/17 14:00 Pulse Rate 88 11/30/17 14:00 Respiratory Rate 18 11/30/17 14:00 Blood Pressure 149/90 11/30/17 14:00 O2 Sat by Pulse Oximetry (%) 97 11/30/17 09:00 Constitutional: Yes: No Distress, Calm Cardiovascular: Yes: Regular Rate and Rhythm Respiratory: Yes: Regular, CTA Bilaterally Gastrointestinal: Yes: Normal Bowel Sounds, Soft Musculoskeletal: Yes: WNL Extremities: Yes: Other Neurological: Yes: Alert, Oriented Psychiatric: Yes: Alert, Oriented Labs: CBC, BMP 11/29/17 11:10 11/29/17 11:10 INR, PTT INR 1.50 (0.83-1.09) H 11/23/17 16:18 Assessment/Plan Problem List - Problems (1) Pneumonia Code(s): J18.9 - PNEUMONIA, UNSPECIFIED ORGANISM (2) Ulcer of right leg Code(s): L97.919 - NON-PRS CHRONIC ULC UNSP PRT OF R LOW LEG W UNSP SEVERITY (3) Cardiac arrest Code(s): I46.9 - CARDIAC ARREST, CAUSE UNSPECIFIED (4) Anemia Code(s): D64.9 - ANEMIA, UNSPECIFIED Qualifiers: Folate deficiency anemia type: dietary (5) ESRD (end stage renal disease) on dialysis Code(s): N18.6 - END STAGE RENAL DISEASE; Z99.2 - DEPENDENCE ON RENAL DIALYSIS (6) Gastroparesis Code(s): K31.84 - GASTROPARESIS (7) HTN (hypertension) Code(s): I10 - ESSENTIAL (PRIMARY) HYPERTENSION (8) SOB (shortness of breath) Code(s): R06.02 - SHORTNESS OF BREATH (10) Fluid overload Code(s): E87.70 - FLUID OVERLOAD, UNSPECIFIED (11) Anemia Code(s): D64.9 - ANEMIA, UNSPECIFIED plan switched to oral d/w the primary team continue resp support dialysis rest as per the team
== END 2017-11-30 20:10 | disposition home health service (06) | DRG 871 ==
LOC: JER 15:39 → JERBED 17:12 → J4S 20:36
PROVIDERS: ADMIT Internal Medicine; ATTEND Nurse Practitioner Acute Care
PROC: 30233N1 Transfusion of Nonautologous Red Blood Cells into Peripheral Vein, Percutaneous Approach (ICD-10-PCS; 2017-11-27)
PROC: 5A1D90Z Performance of Urinary Filtration, Continuous, Greater than 18 hours Per Day (ICD-10-PCS; principal; 2017-11-29)
DX: A41.9 Sepsis, unspecified organism (principal); J18.9 Pneumonia, unspecified organism; N18.6 End stage renal disease; J98.11 Atelectasis; L97.919 Non-pressure chronic ulcer of unspecified part of right lower leg with unspecified severity; I12.0 Hypertensive chronic kidney disease with stage 5 chronic kidney disease or end stage renal disease; J96.11 Chronic respiratory failure with hypoxia; E10.65 Type 1 diabetes mellitus with hyperglycemia; E10.22 Type 1 diabetes mellitus with diabetic chronic kidney disease; Z99.2 Dependence on renal dialysis; E87.70 Fluid overload, unspecified; D63.1 Anemia in chronic kidney disease; D47.3 Essential (hemorrhagic) thrombocythemia; D72.829 Elevated white blood cell count, unspecified; Z79.4 Long term (current) use of insulin
CPT/HCPCS: 36415; 36430; 71045-TC-FY; 80048; 80053; 82550; 82803; 82947; 82962; 83605; 83735; 83880; 84100; 84484; 85025; 85027; 85610; 85730; 86704; 86706; 86708; 86803; 86850; 86900; 86901; 86922; 87040; 87070; 87077; 87205; 87340; 93005; 93010; 93971-TC; 94640; 99285-25; J0131; J0735; J0885; J1644; J7620; P9038; P9058

== ENCOUNTER 2017-12-07 12:17 | Inpatient (IN) | payer OTHER ==
[2017-12-07 12:51] VITALS: BMI 21.7
[2017-12-07] MEDS ORDERED: VANCOMYCIN 1,000 MG in DEXTROSE 5%-WATER - 250 ML IVPB ONE (14:43)
[2017-12-07] MEDS ORDERED: VANCOMYCIN 1 GRAM (PRE-DOCKED) 1,000 MG/250 ML BAG IVPB ONE (14:57)
--- NOTE | 2017-12-07 15:02 | PDOC ---
History of Present Illness - General Chief Complaint: Wound Stated Complaint: ABCESS/BOIL Time Seen by Provider: 12/07/17 13:48 History Source: Patient - History of Present Illness Occurred: reports: other Severity: Yes: severe Lower Extremity Pain Location: right: heel Past History - Past Medical History Allergies/Adverse Reactions: Allergies Allergy/AdvReac Type Severity Reaction Status Date / Time lactose AdvReac Verified 12/07/17 12:52 Home Medications: Ambulatory Orders cloNIDine HCL [Catapres -] 0.3 mg PO TID 06/28/17 Collagenase Clostridium Hist. [Santyl -] 1 applic TP DAILY #1 tube 10/01/17 Insulin Detemir [Levemir Flextouch] 17 unit SQ BID #1 insuln.pen 10/01/17 Insulin Lispro [Humalog Kwikpen U-100] 100 unit SQ ASDIR #10 insuln.pen oxyCODONE HCL [Roxicodone -] 10 mg PO Q6H PRN #20 tablet MDD 4 10/29/17 Oxycodone HCl 10 mg PO Q6H PRN #15 tablet MDD 4 11/12/17 Albuterol 0.083% Nebulizer No [Ventolin 0.083% Nebulizer Soln -] 1 amp NEB Q6H #10 amp 12/02/17 Nebulizer Accessories [A.i.r.s. Nebulizer] 1 each MC PRN #1 kit 12/02/17 Gabapentin [Neurontin -] 300 mg PO BID 12/07/17 Anemia: Yes Asthma: No Cancer: No Cardiac Disorders: No CVA: No COPD: No CHF: No DVT: No Dementia: No Diabetes: Yes (15 yrs Insulin dependent) Dialysis: Yes (M/W/F) Disorders: Yes (esrd) HTN: Yes Hypercholesterolemia: No Kidney Stones: (ESRD, Dialysis Mon, W, F, Left arm Fistula) Liver Disease: No Seizures: Yes (Several yrs ago, no medication) Thyroid Disease: No - Surgical History Abdominal Surgery: No Appendectomy: No Cardiac Surgery: Yes (myxoma removed 2013) Cholecystectomy: Yes Lung Surgery: No Neurologic Surgery: No Orthopedic Surgery: Yes (foot sx x2) - Immunization History Td Vaccination: No TDAP Vaccination: No Immunization Up to Date: Yes - Suicide/Smoking/Psychosocial Hx Smoking Status: No Smoking History: Never smoked Have you smoked in the past 12 months: No Number of Cigarettes Smoked Daily: 10 If you are a former smoker, when did you quit?: couple months ago Information on smoking cessation initiated: No Hx Alcohol Use: No Drug/Substance Use Hx: No Substance Use Type: None Hx Substance Use Treatment: No Review of Systems - Review of Systems Constitutional: No: Chills, Fever *Physical Exam - Vital Signs Last Vital Signs Temp Pulse Resp BP Pulse Ox 98.4 F 100 H 16 170/115 100 12/07/17 12:49 12/07/17 12:49 12/07/17 12:49 12/07/17 12:49 12/07/17 12:49 - Physical Exam General Appearance: Yes: Appropriately Dressed. No: Apparent Distress HEENT: positive: Normal Voice Neck: positive: Supple Respiratory/Chest: negative: Respiratory Distress Extremity: positive: Swelling, Other (RLE w/ diffuse swelling w/ large fluctuant area over benitez extending into ankle w/ 2 areas of purulent drainage, palpaple pedal pusles, no blisters or crepitus, well neena ulcer to plantar aspect pf R 5th digit) Integumentary: positive: Dry, Warm Neurologic: positive: Fully Oriented, Alert, Normal Mood/Affect ED Treatment Course - LABORATORY CBC & Chemistry Diagram: 12/07/17 14:50 12/07/17 14:50 - RADIOLOGY Radiology Studies Ordered: Category Date Time Status CHEST X-RAY PORTABLE* [RAD] Stat Radiology 12/07/17 14:07 Ordered LEG TIB/FIB-RIGHT [RAD] Stat Radiology 12/07/17 14:08 Ordered Medical Decision Making - Medical Decision Making 12/07/17 14:57 27-year-old female, history of HTN, DM, ESRD on HD (M/W/F via LUE fistula), dialyzed yesterday, R foot ulcer, sent in for admission by podiatry for right leg abscess. Patient states she is currently following up with Dr. Dubon of podiatry for care of her right foot plantar ulcer and was told ulcer was healing well per patient, but over the past several days has noticed swelling of her right leg with an area of purulent drainage. No fever or chills. Patient states she feels that the santyl ointment she is currently applying to leg has "burnt" her skin and made condition worse. Denies any fever or chills. Seen by Dr. Dubon this a.m., who sent patient in for admission. Per documentation, plan is for "decompression of calf and lower leg". MD lobato consult to Dr Carr of vascular See exam RLE abscess Sent in by podiatry for admission No f/c Non-toxic neena and stable w/ large area of fluctuance over R benitez extending into ankle w/ 2 areas draining pus, unable to appreciate any erythema, palpable pedal pulses b/l, clinically no e/o nec fasciitis or compartment syndrome at this time -abx (based on wound cx 09/20-staph epidermidis, sen to vanco) -labs -wound cx -XR -US -vasc consult -admit 12/07/17 18:05 WBC of 14. Glucose of 480 with no gap. IV insulin in progress. X-ray right leg consistent with abscess. US done w/ read pending. Chest x-ray read as possible development of right sided infiltrate. However patient has no cough, shortness of breath, chest pain or fever to suggest pneumonia at this time. Will d/w inpt team. Pt will need renal c/s as due for HD tomorrow 12/07/17 20:36 Rpt FS > 400 w/ trace acetone. Will continue to manage hyperglycemia w/ insulin. BP 166/103, will give a dose of home meds and reassess. Pt admitted at this time *DC/Admit/Observation/Transfer Diagnosis at time of Disposition: Leg abscess, Hyperglycemia HTN (hypertension) Qualifiers: Hypertension type: unspecified Qualified Code(s): I10 - Essential (primary) hypertension - Discharge Dispostion Condition at time of disposition: Fair Decision to Admit order: Yes - Referrals - Patient Instructions - Post Discharge Activity
[2017-12-07 15:10] LABS: BASO % 1.3 % (0-2.0); EOS % 0.8 % (0-4.5); HEMATOCRIT 28.5 % (32.4-45.2); HEMOGLOBIN 8.8 GM/dL (10.7-15.3); LYMPH % 5.7 % (8-40); MCH 26.2 pg (25.7-33.7); MCHC 30.8 g/dl (32.0-36.0); MEAN PLT VOLUME 9.1 fl (7.5-11.1); MONO % 14.7 % (3.8-10.2); NEUT % 77.5 % (42.8-82.8); PLATELET COUNT 604 K/MM3 (134-434); RBC 3.35 M/mm3 (3.60-5.2); RDW 17.1 % (11.6-15.6); WHITE BLOOD COUNT 14.7 K/mm3 (4.0-10.0)
--- NOTE | 2017-12-07 15:36 | PDOC ---
*Physical Exam - Vital Signs Last Vital Signs Temp Pulse Resp BP Pulse Ox 98.4 F 100 H 16 170/115 100 12/07/17 12:49 12/07/17 12:49 12/07/17 12:49 12/07/17 12:49 12/07/17 12:49 ED Treatment Course - LABORATORY CBC & Chemistry Diagram: 12/08/17 09:30 12/08/17 16:10 - ADDITIONAL ORDERS Additional order review: Laboratory Results 12/07/17 14:50 Serum , Qual Negative Medical Decision Making - Medical Decision Making 12/07/17 15:35 Pt seen by Midlevel Provider under my direct supervision Ancillary studies reviewed I agree with plan as outlined by Midlevel Provider *DC/Admit/Observation/Transfer Diagnosis at time of Disposition: Leg abscess, Hyperglycemia, HTN (hypertension) - Discharge Dispostion Condition at time of disposition: Fair - Referrals - Patient Instructions - Post Discharge Activity
[2017-12-07] MEDS ORDERED: MORPHINE SULFATE 2 MG/ML VIAL ONE (15:37)
[2017-12-07] MEDS ORDERED: morphine CARPU-JECT 4 MG/1 ML DISP.SYRIN IVPUSH ONE (15:37)
[2017-12-07 15:41] LABS: ALBUMIN 2.6 g/dl (3.4-5.0); ALK PHOS 757 U/L (45-117); ANION GAP 16 MMOL/L (8-16); BILIRUBIN,TOTAL 0.2 mg/dL (0.2-1.0); BLOOD UREA NITROGEN 67 mg/dL (7-18); CALCIUM 8.9 mg/dL (8.5-10.1); CHLORIDE 95 mmol/L (98-107); CO2 22 mmol/L (21-32); CREATININE 5.2 mg/dL (0.55-1.02); SGPT/ALT 10 U/L (12-78); SODIUM 133 mmol/L (136-145); TOT PROT 7.8 g/dl (6.4-8.2)
[2017-12-07 15:43] LABS: POTASSIUM 5.9 mmol/L (3.5-5.1); SGOT/AST 21 U/L (15-37)
[2017-12-07 15:44] LABS: GLUCOSE,RANDOM 480 mg/dL (74-106)
[2017-12-07] MEDS ORDERED: INSULIN REGULAR HUMAN 100 UNITS/ML *VIAL IVPUSH ONE (15:45)
[2017-12-07] MEDS ORDERED: INSULIN (NOVOLOG) ASPART 100 UNITS/ML 10ML VIAL ONE (15:46)
[2017-12-07] MEDS ORDERED: ALBUTEROL SO4 2.5/IPRATROPIUM 0.5 INH SOL 3 ML VIAL.NEB. NEB ONE ×2 (18:19→18:28)
--- NOTE | 2017-12-07 19:44 | PN ---
Teaching Attending Note Name of Resident: Gissell Muñoz ATTENDING PHYSICIAN STATEMENT I saw and evaluated the patient. I reviewed the resident's note and discussed the case with the resident. I agree with the resident's findings and plan as documented. SUBJECTIVE: OBJECTIVE: ASSESSMENT AND PLAN:
[2017-12-07] MEDS ORDERED: INSULIN REGULAR HUMAN 100 UNITS/ML *VIAL SQ ONE (20:13)
--- NOTE | 2017-12-07 20:24 | HP ---
Admitting History and Physical - Primary Care Physician PCP: Monique Reyes - Admission Chief Complaint: RLE Wound History of Present Illness: This is a 27 y/o woman with PMHx of ESRD on HD (M,W,F LUE AVF), IDDM, HTN, PVD, Atrial thrombus, Cardiac Arrest, Pneumonia, Right Foot ulcer. Who presents to the ED, sent in for admission by podiatry for right leg abscess. Patient states she is currently following up with Dr. Dubon of podiatry for care of her right foot plantar ulcer and was told ulcer was healing well per patient, but over the past several days has noticed swelling of her right leg with an area of purulent drainage. Patient states she feels that the santyl ointment she is currently applying to leg has "burnt" her skin and made condition worse. Patient denies fever, chills, cough, SOB, CP, AP, N/V/D, constipation. History Source: Patient Limitations to Obtaining History: No Limitations - Past Medical History Cardiovascular: Yes: CHF, HTN, Other (thrombus in atrium, PE, DVT) Pulmonary: No: Sleep Apnea Renal/: Yes: Renal Failure, Hemodialysis ...LMP: 05/13/17 Heme/Onc: Yes: Anemia, Other (atrial myxoma s/p surgical removal. Also has a history of PE ) Infectious Disease: Yes: MRSA, Other Endocrine: Yes: Diabetes Mellitus (type 1 on insulin pump) - Past Surgical History Past Surgical History: Yes: AV Fistula/Graft (Right arm) - Smoking History Smoking history: Never smoked Have you smoked in the past 12 months: No Aproximately how many cigarettes per day: 10 If you are a former smoker, when did you quit?: couple months ago - Alcohol/Substance Use Hx Alcohol Use: No History of Substance Use: reports: None - Social History Usual Living Arrangement: Yes: With Parent ADL: Independent Occupation: unemployed History of Recent Travel: No Home Medications - Allergies Allergies/Adverse Reactions: Allergies Allergy/AdvReac Type Severity Reaction Status Date / Time lactose AdvReac Verified 12/07/17 12:52 - Home Medications Home Medications: Ambulatory Orders cloNIDine HCL [Catapres -] 0.3 mg PO TID 06/28/17 Collagenase Clostridium Hist. [Santyl -] 1 applic TP DAILY #1 tube 10/01/17 Insulin Detemir [Levemir Flextouch] 17 unit SQ BID #1 insuln.pen 10/01/17 Insulin Lispro [Humalog Kwikpen U-100] 100 unit SQ ASDIR #10 insuln.pen oxyCODONE HCL [Roxicodone -] 10 mg PO Q6H PRN #20 tablet MDD 4 10/29/17 Oxycodone HCl 10 mg PO Q6H PRN #15 tablet MDD 4 11/12/17 Albuterol 0.083% Nebulizer No [Ventolin 0.083% Nebulizer Soln -] 1 amp NEB Q6H #10 amp 12/02/17 Nebulizer Accessories [A.i.r.s. Nebulizer] 1 each MC PRN #1 kit 12/02/17 Gabapentin [Neurontin -] 300 mg PO BID 12/07/17 Family Disease History - Family Disease History Family Disease History: Diabetes: Grandparent (HTN), Heart Disease: Grandparent , Other: Father (unknown), Mother (HTN) Review of Systems - Review of Systems Constitutional: reports: No Symptoms Eyes: reports: No Symptoms HENT: reports: No Symptoms Neck: reports: No Symptoms Cardiovascular: reports: No Symptoms Respiratory: reports: No Symptoms Gastrointestinal: reports: No Symptoms Genitourinary: reports: No Symptoms Breasts: reports: No Symptoms Reported Musculoskeletal: reports: Extremity Pain (RLE), Joint Swelling (RLE) Integumentary: reports: Blister, Erythema, Wound Neurological: reports: No Symptoms Endocrine: reports: No Symptoms Hematology/Lymphatic: reports: No Symptoms Psychiatric: reports: No Symptoms Pain Intensity: 5 Physical Examination Vital Signs: Vital Signs Temperature 97.9 F 12/07/17 18:47 Pulse Rate 103 H 12/07/17 18:47 Respiratory Rate 20 12/07/17 18:47 Blood Pressure 166/103 12/07/17 18:47 O2 Sat by Pulse Oximetry (%) 99 12/07/17 18:47 Constitutional: Yes: No Distress, Calm, Thin Eyes: Yes: WNL, Conjunctiva Clear, EOM Intact, PERRL HENT: Yes: WNL, Atraumatic, Normocephalic Neck: Yes: WNL, Supple, Trachea Midline Cardiovascular: Yes: WNL, Regular Rate and Rhythm, S1, S2 Respiratory: Yes: WNL, Regular, CTA Bilaterally Gastrointestinal: Yes: WNL, Normal Bowel Sounds, Soft ...Rectal Exam: Yes: Deferred Breast(s): Yes: WNL Musculoskeletal: Yes: WNL Extremities: Yes: Erythema Edema: Yes Edema: RLE: 1+ Peripheral Pulses WNL: Yes Integumentary: Yes: Bruising, Erythema Wound/Incision: Yes: Dressing Dry and Intact Neurological: Yes: WNL, Oriented ...Motor Strength: WNL Psychiatric: Yes: WNL, Alert, Oriented Labs: CBC, BMP 12/07/17 14:50 12/07/17 14:50 C Imaging - Results Chest X-ray: Report Reviewed, Image Reviewed X-ray: Report Reviewed, Image Reviewed Ultrasound: Report Reviewed, Image Reviewed Problem List - Problems (1) Leg abscess Code(s): L02.419 - CUTANEOUS ABSCESS OF LIMB, UNSPECIFIED (2) Ulcer of right leg Code(s): L97.919 - NON-PRS CHRONIC ULC UNSP PRT OF R LOW LEG W UNSP SEVERITY (3) Diabetic foot ulcer Code(s): E11.621 - TYPE 2 DIABETES MELLITUS WITH FOOT ULCER; L97.509 - NON- PRESSURE CHRONIC ULCER OTH PRT UNSP FOOT W UNSP SEVERITY (4) ESRD (end stage renal disease) on dialysis Code(s): N18.6 - END STAGE RENAL DISEASE; Z99.2 - DEPENDENCE ON RENAL DIALYSIS (5) HTN (hypertension) Code(s): I10 - ESSENTIAL (PRIMARY) HYPERTENSION Qualifiers: Hypertension type: unspecified Qualified Code(s): I10 - Essential (primary ) hypertension (6) Anemia Code(s): D64.9 - ANEMIA, UNSPECIFIED Qualifiers: Folate deficiency anemia type: dietary (7) Chronic GERD Code(s): K21.9 - GASTRO-ESOPHAGEAL REFLUX DISEASE WITHOUT ESOPHAGITIS (8) Diabetes mellitus, insulin dependent (IDDM), uncontrolled Code(s): E10.65 - TYPE 1 DIABETES MELLITUS WITH HYPERGLYCEMIA Assessment/Plan This is a 27 y/o admitted for RLE Cellulitis and Abscess, Uncontrolled DM for further evaluation of their emergent condition. Plan Will admit to M/S wound culture-pending blood culture-pending WBC 14,000, without L-shift ESR and CRP are elevated CBC, BMP in am Tib/Fib xray reviewed Chest xray- reviewed ? R infiltrate Duplex LE- neg DVT Vancomycin given in ED, will continue renal dosing (HD) will defer to ID Appreciate ID consult Appreciate Vascular consult Appreciate Endocrinology consult- uncontrolled DM HgbA1c in am Continue home meds, except DM until diet resumed Will keep NPO until seen and eval by Vascular Wound care Elevate extremity Monitor vitals Anemia- stable, will transfuse if Hb < 7.0 FEN- Fluid restriction 1L, replete lytes prn DVT ppx- OOB, SCDs, Heparin SQ Code Status: Full Code Dispo: Requires Inpatient Care Visit type - Emergency Visit Emergency Visit: Yes ED Registration Date: 12/07/17 Care time: The patient presented to the Emergency Department on the above date and was hospitalized for further evaluation of their emergent condition. - New Patient This patient is new to me today: Yes Date on this admission: 12/07/17 - Critical Care Critical Care patient: No Hospitalist Screening - Colonoscopy Questionnaire Colonoscopy Questionnaire: Colonoscopy Questionnaire - Patient: 50 - 75 years old and never had a screening colonoscopy: No History of colon or rectal polyps, or CA: No History of IBD, Crohn's disease or UC: No History of abdominal radiation therapy as a child: No - Relative: 1 with colon or rectal CA, or polyps at age 60 or younger: Unknown Colon or rectal CA diagnosed at age 45 or younger: Unknown Multiple relatives with colon or rectal CA: Unknown - Outcome: Screening Result: Negative Screen
[2017-12-07] MEDS ORDERED: cloNIDine HCL 0.1 MG TABLET PO ONE (20:47)
[2017-12-07] MEDS ORDERED: INSULIN REGULAR HUMAN 100 UNITS/ML *VIAL ONE (21:20)
[2017-12-07] MEDS ORDERED: cloNIDine HCL 0.1 MG TABLET ONE (23:40)
[2017-12-07] MEDS ORDERED: HEPARIN NA (PORCINE) 5,000 UNITS/ML 1ML VIAL ONE (23:41)
[2017-12-07] MEDS: HEPARIN NA (PORCINE) 5,000 UNITS/ML 1ML VIAL SQ SCH (23:46)
[2017-12-07] MEDS ORDERED: ACETAMINOPHEN 1000 MG/100 ML VIAL (NON FORMULARY) IVPB ONE (23:59)
[2017-12-08] MEDS ORDERED: ACETAMINOPHEN INJECTION 100 ML IVPB ONE (00:29)
--- NOTE | 2017-12-08 08:56 | PN ---
Progress Note, Physician History of Present Illness: 27 y/o woman with PMHx of ESRD on HD (M,W,F LUJose AVF), IDDM, HTN, PVD, Atrial thrombus, Cardiac Arrest, Pneumonia, Right Foot ulcer. Who presents to the ED, sent in for admission by podiatry for right leg abscess. Patient states she is currently following up with Dr. Dubon of podiatry for care of her right foot plantar ulcer and was told ulcer was healing well per patient, but over the past several days has noticed swelling of her right leg with an area of purulent drainage. Patient states she feels that the santyl ointment she is currently applying to leg has "burnt" her skin and made condition worse. Patient denies fever, chills, cough, SOB, CP, AP, N/V/D, constipation. - Current Medication List Current Medications: Active Medications Clonidine (Catapres -) 0.3 mg PO TID ROSA MARIA Gabapentin (Neurontin -) 300 mg PO BID ROSA MARIA Heparin Sodium (Porcine) (Heparin -) 5,000 unit SQ BID [facility] Last Admin: 12/07/17 23:46 Dose: Not Given - Objective Vital Signs: Vital Signs Temperature 98.2 F 12/08/17 04:32 Pulse Rate 82 12/08/17 04:32 Respiratory Rate 18 12/08/17 04:32 Blood Pressure 160/90 12/08/17 04:32 O2 Sat by Pulse Oximetry (%) 98 12/08/17 04:32 Cardiovascular: Yes: Regular Rate and Rhythm Respiratory: Yes: Regular, CTA Bilaterally Gastrointestinal: Yes: Normal Bowel Sounds, Soft Extremities: Yes: Erythema Edema: Yes Edema: RLE: 3+ Wound/Incision: Yes: Draining, Reddened Labs: CBC, BMP 12/07/17 14:50 12/07/17 14:50 Problem List - Problems (1) Leg abscess Assessment/Plan: -wound culture-pending -blood culture-pending -WBC 14,000, without L-shift -ESR and CRP are elevated -Tib/Fib xray reviewed -Duplex LE- neg DVT -Vancomycin given in ED, will continue renal dosing (HD) will defer to ID - ID consult - Vascular consult -Wound care -Elevate extremity Code(s): L02.419 - CUTANEOUS ABSCESS OF LIMB, UNSPECIFIED (2) HTN (hypertension) Assessment/Plan: -Monitor on meds Vital Signs Temp 98.2 F 12/08/17 04:32 Pulse 82 12/08/17 04:32 Resp 18 12/08/17 04:32 BP 160/90 12/08/17 04:32 Pulse Ox 98 12/08/17 04:32 Intake & Output 12/07/17 12/07/17 12/08/17 11:59 23:59 11:59 Weight 135 lb Other: Height 5 ft 6 in Body Mass Index (BMI) 21.7 Weight Measurement Method Est/Stated by Patient Code(s): I10 - ESSENTIAL (PRIMARY) HYPERTENSION Qualifiers: Hypertension type: unspecified Qualified Code(s): I10 - Essential (primary ) hypertension (3) DKA (diabetic ketoacidoses) Assessment/Plan: -Repeat Acetone -Endo Code(s): E13.10 - OTH DIABETES MELLITUS WITH KETOACIDOSIS WITHOUT COMA Qualifiers: Diabetes mellitus type: type 1 Diabetes mellitus complication detail: with coma Qualified Code(s): E10.11 - Type 1 diabetes mellitus with ketoacidosis with coma (4) Diabetes mellitus, insulin dependent (IDDM), uncontrolled Assessment/Plan: Appreciate Endocrinology consult- uncontrolled DM HgbA1c Continue home meds Code(s): E10.65 - TYPE 1 DIABETES MELLITUS WITH HYPERGLYCEMIA (5) ESRD (end stage renal disease) on dialysis Assessment/Plan: -Renal consult Code(s): N18.6 - END STAGE RENAL DISEASE; Z99.2 - DEPENDENCE ON RENAL DIALYSIS (6) Pneumonia Assessment/Plan: Chest xray- reviewed ? R infiltrate Code(s): J18.9 - PNEUMONIA, UNSPECIFIED ORGANISM
[2017-12-08 09:50] LABS: EOS % 2.3 % (0-4.5); HEMATOCRIT 27.1 % (32.4-45.2); HEMOGLOBIN 8.3 GM/dL (10.7-15.3); LYMPH % 9.3 % (8-40); MCH 25.3 pg (25.7-33.7); MCHC 30.5 g/dl (32.0-36.0); MEAN PLT VOLUME 8.1 fl (7.5-11.1); MONO % 15.7 % (3.8-10.2); NEUT % 71.7 % (42.8-82.8); PLATELET COUNT 554 K/MM3 (134-434); RBC 3.27 M/mm3 (3.60-5.2); RDW 16.6 % (11.6-15.6); WHITE BLOOD COUNT 11.4 K/mm3 (4.0-10.0)
[2017-12-08 10:00] LABS: ANION GAP 14 MMOL/L (8-16); BLOOD UREA NITROGEN 80 mg/dL (7-18); CALCIUM 8.5 mg/dL (8.5-10.1); CHLORIDE 99 mmol/L (98-107); CO2 22 mmol/L (21-32); CREATININE 6.1 mg/dL (0.55-1.02); GLUCOSE,RANDOM 226 mg/dL (74-106); POTASSIUM 5.5 mmol/L (3.5-5.1); SODIUM 135 mmol/L (136-145)
[2017-12-08] MEDS ORDERED: INSULIN DETEMIR 17 UNIT SQ SCH (10:00)
--- NOTE | 2017-12-08 10:18 | CONSULT ---
- Consultation REQUESTING PROVIDER: CONSULT REQUEST: We have been asked to surgically evaluate this patient for RLE abscess PCP:Monique Reyes HISTORY OF PRESENT ILLNESS: 27yo F with h/o poorly controlled diabetes and chronic venous stasis ulcers, was sent to the ED from the Wound clinic after being seen by Dr. Easley ( podiatry) and found to have abscess of the RLE. Pt states that she has been dealing with her venous stasis ulcers for a long time. She denies any fevers or chills. Denies any increase pain in her leg. PMHx: DM, CAD, CHF, HTN, ESRD Home Medications Medication Instructions Recorded cloNIDine HCL [Catapres -] 0.3 mg PO TID 06/28/17 Collagenase Clostridium Hist. 1 applic TP DAILY #1 tube 10/01/17 [Santyl -] Insulin Detemir [Levemir Flextouch] 17 unit SQ BID #1 insuln.pen 10/01/17 Insulin Lispro [Humalog Kwikpen 100 unit SQ ASDIR #10 insuln.pen 10/03/17 U-100] oxyCODONE HCL [Roxicodone -] 10 mg PO Q6H PRN #20 tablet MDD 4 10/29/17 Oxycodone HCl 10 mg PO Q6H PRN #15 tablet MDD 4 11/12/17 Albuterol 0.083% Nebulizer No 1 amp NEB Q6H #10 amp 12/02/17 [Ventolin 0.083% Nebulizer Soln -] Nebulizer Accessories [A.i.r.s. 1 each MC PRN #1 kit 12/02/17 Nebulizer] Gabapentin [Neurontin -] 300 mg PO BID 12/07/17 Allergies Allergy/AdvReac Type Severity Reaction Status Date / Time lactose AdvReac Verified 12/07/17 12:52 REVIEW OF SYSTEMS: CONSTITUTIONAL: Absent: fever, chills, diaphoresis, generalized weakness, malaise, loss of appetite, weight change CARDIOVASCULAR: Absent: chest pain, syncope, palpitations, irregular heart rate, lightheadedness , peripheral edema RESPIRATORY: Absent: cough, shortness of breath, dyspnea with exertion, wheezing, stridor, hemoptysis GASTROINTESTINAL: Absent: abdominal pain, abdominal distension, nausea, vomiting, diarrhea, constipation, melena, hematochezia GENITOURINARY: Absent: dysuria, frequency, urgency, hesitancy, hematuria, flank pain, genital pain MUSCULOSKELETAL: Absent: myalgia, joint swelling, back pain, neck pain SKIN: Absent: rash, itching, pallor HEMATOLOGIC/IMMUNOLOGIC: Absent: easy bleeding, easy bruising, lymphadenopathy PHYSICAL EXAM: GENERAL: Awake, alert, and fully oriented, in no acute distress. HEAD: Normal with no signs of trauma. EYES: PERRL, sclera anicteric, conjunctiva clear. LUNGS: breathing comfortably HEART: Regular rate and rhythm. MUSCULOSKELETAL: Normal ROM at all joints. No bony deformities or tenderness. No CVA tenderness. LOWER EXTREMITIES: Purulent drainage from distal/anterior Rt leg, bogginess noted around area 12cm x 6 cm, +2 pitting edema with eschar and ulcer noted on posterior calf. NEUROLOGICAL: Normal speech, gait not observed. PSYCH: Cooperative. Good eye contact. Appropriate mood and affect. SKIN: Warm, dry, normal turgor, no rashes or lesions noted. Vital Signs Temperature 98.2 F 12/08/17 04:32 Pulse Rate 82 12/08/17 04:32 Respiratory Rate 18 12/08/17 04:32 Blood Pressure 160/90 12/08/17 04:32 O2 Sat by Pulse Oximetry (%) 98 12/08/17 04:32 Lab Results WBC 11.4 K/mm3 (4.0-10.0) H 12/08/17 09:30 RBC 3.27 M/mm3 (3.60-5.2) L 12/08/17 09:30 Hgb 8.3 GM/dL (10.7-15.3) L 12/08/17 09:30 Hct 27.1 % (32.4-45.2) L 12/08/17 09:30 MCV 83.0 fl (80-96) 12/08/17 09:30 MCHC 30.5 g/dl (32.0-36.0) L 12/08/17 09:30 RDW 16.6 % (11.6-15.6) H 12/08/17 09:30 Plt Count 554 K/MM3 (134-434) H 12/08/17 09:30 Sodium 135 mmol/L (136-145) L 12/08/17 09:30 Potassium 5.5 mmol/L (3.5-5.1) H 12/08/17 09:30 Chloride 99 mmol/L (98-107) 12/08/17 09:30 Carbon Dioxide 22 mmol/L (21-32) 12/08/17 09:30 Anion Gap 14 MMOL/L (8-16) 12/08/17 09:30 BUN 80 mg/dL (7-18) H 12/08/17 09:30 Creatinine 6.1 mg/dL (0.55-1.02) H 12/08/17 09:30 Random Glucose 226 mg/dL (74-106) H 12/08/17 09:30 Calcium 8.5 mg/dL (8.5-10.1) 12/08/17 09:30 Problem List - Problems (1) Leg abscess Assessment/Plan: Plan -RLE abscess appears to be fairly extensive, would recommend CT of the leg to evaluate the extent of abscess. -Will follow up results of scan -abx as per medicine/ID -NPO after midnight -will bring for I&D/washout of RLE 12/09/17 Code(s): L02.419 - CUTANEOUS ABSCESS OF LIMB, UNSPECIFIED
[2017-12-08] MEDS: GABAPENTIN 300 MG CAPSULE (FP) PO SCH ×2 (11:20→22:01)
[2017-12-08] MEDS ORDERED: oxyCODONE HCL 5 MG TABLET ONE (11:26)
[2017-12-08 11:30] LABS: ALBUMIN 2.4 g/dl (3.4-5.0); ALK PHOS 673 U/L (45-117); SGOT/AST 14 U/L (15-37); SGPT/ALT 9 U/L (12-78); TOT PROT 7.2 g/dl (6.4-8.2)
[2017-12-08] MEDS: oxyCODONE HCL 5 MG TABLET PO PRN ×2 (11:30→23:55)
[2017-12-08 11:31] LABS: BILIRUBIN,TOTAL 0.5 mg/dL (0.2-1.0)
[2017-12-08] MEDS: HEPARIN NA (PORCINE) 5,000 UNITS/ML 1ML VIAL SQ SCH ×3 (11:37→22:11)
--- NOTE | 2017-12-08 12:17 | CON.ID ---
Consult - History of Present Illness History of Present Illness: Asked to evaluate this 27 y.o. female known to ID from previous hospitalizations. She has a PMH of IDDM, PVD, Chronic RLE ulcers (plantar, RLE medial), cellulitis, ESRD on HD (M/W/F) last one on Wednesday, history of PE/DVT, Cardiac arrest, CHF, atrial myxoma removal and presents to the ER with RLE fluctuant lesions with purulent drainage, RLE warmth and worsened edema. She has chronic LE edemaShe follows normally for wound care of her Rt lower extremity ulcers. In the ER she was noted to have elevated wbc count (14K), tachycardia, and glucose >400. She denies fever/chills and has no other specific complaints. - History Source History Provided By: Patient Limitations to Obtaining History: No Limitations - Past Medical History Cardio/Vascular: Yes: CHF, Deep Vein Thrombosis, HTN, Other (thrombus in atrium , PE, DVT) Pulmonary: No: Sleep Apnea Renal/: Yes: Renal Failure, Hemodialysis ...LMP: 05/13/17 Infectious Disease: Yes: MRSA, Other Endocrine: Yes: Diabetes Mellitus (type 1 on insulin pump) Additional Medical History: DVT, PE on coumadin - Past Surgical History Past Surgical History: Yes: AV Fistula/Graft (Right arm) - Alcohol/Substance Use Hx Alcohol Use: No History of Substance Use: reports: None - Smoking History Smoking history: Never smoked Have you smoked in the past 12 months: No Aproximately how many cigarettes per day: 10 If you are a former smoker, when did you quit?: couple months ago - Social History Usual Living Arrangement: With Parent ADL: Independent Occupation: unemployed History of Recent Travel: No Home Medications - Allergies Allergies/Adverse Reactions: Allergies Allergy/AdvReac Type Severity Reaction Status Date / Time lactose AdvReac Verified 12/07/17 12:52 - Home Medications Home Medications: Ambulatory Orders cloNIDine HCL [Catapres -] 0.3 mg PO TID 06/28/17 Collagenase Clostridium Hist. [Santyl -] 1 applic TP DAILY #1 tube 10/01/17 Insulin Detemir [Levemir Flextouch] 17 unit SQ BID #1 insuln.pen 10/01/17 Insulin Lispro [Humalog Kwikpen U-100] 100 unit SQ ASDIR #10 insuln.pen oxyCODONE HCL [Roxicodone -] 10 mg PO Q6H PRN #20 tablet MDD 4 10/29/17 Oxycodone HCl 10 mg PO Q6H PRN #15 tablet MDD 4 11/12/17 Albuterol 0.083% Nebulizer No [Ventolin 0.083% Nebulizer Soln -] 1 amp NEB Q6H #10 amp 12/02/17 Nebulizer Accessories [A.i.r.s. Nebulizer] 1 each PRN #1 kit 12/02/17 Gabapentin [Neurontin -] 300 mg PO BID 12/07/17 Family Disease History - Family Disease History Family Disease History: Diabetes: Grandparent (HTN), Heart Disease: Grandparent , Other: Father (unknown), Mother (HTN) Review of Systems - Review of Systems Constitutional: reports: No Symptoms. denies: Chills, Diaphoresis, Fever, Lethargy, Loss of Appetite, Malaise, Night Sweats, Unintentional Wgt. Loss, Weakness, Other Eyes: reports: No Symptoms. denies: Blind Spots, Blurred Vision, Double Vision , Eye Pain, Floaters, Photophobia, Recent Change in Vision, Other HENT: reports: No Symptoms. denies: Difficult Swallowing, Ear Discharge, Ear Pain, Epistaxis, Gingival Bleeding, Hearing Loss, Mouth Swelling, Nasal Congestion, Ocular Prosthesis, Throat Pain, Toothache, Ringing in Ears, Other Neck: reports: No Symptoms. denies: Decreased ROM, Lumps, Pain on Movement, Stiffness, Swollen Glands, Tenderness, Other Cardiovascular: reports: No Symptoms. denies: Chest Pain, Edema, Palpitations, Shortness of Breath, Other Respiratory: reports: No Symptoms. denies: Cough, Exercise Intolerance, Hemoptysis, Orthopnea, PND, Snoring, SOB, SOB on Exertion, Wheezing, Other Gastrointestinal: reports: No Symptoms. denies: Abdominal Pain, Bloating, Constipation, Diarrhea, Dysphagia, Indigestion, Melena, Nausea, Rectal Bleeding , Vomiting, Vomiting Blood, Other Genitourinary: reports: No Symptoms. denies: Burning, Discharge, Dysuria, Flank Pain, Frequency, Hematuria, Incontinence, Lesions, Menses, Pain, Testicular Mass, Testicular Pain, Testicular Swelling, Urgency, Vaginal Bleeding , Other Breasts: reports: No Symptoms Reported. denies: See HPI, Breast Implants, Discharge from Nipple, Lumps, Pain, Skin Changes, Other Musculoskeletal: reports: No Symptoms. denies: Back Pain, Crepitus, Decreased ROM, Extremity Pain, Joint Pain, Joint Swelling, Muscle Pain, Muscle Cramps, Muscle Weakness, Other Integumentary: reports: Other (RLE medial ulcers, Rt plantar ulcer) Endocrine: reports: No Symptoms. denies: Excessive Sweating, Flushing, Increased Hunger, Increased Thirst, Intolerance to Cold, Intolerance to Heat, Unexplained Weight Gain, Unexplained Weight Loss, Other Hematology/Lymphatic: reports: No Symptoms. denies: Easily Bruised, Excessive Bleeding, Swollen Glands, Other Psychiatric: reports: No Symptoms. denies: Altered Sleep Pattern, Anxiety, Depression, Hallucinations, Panic, Paranoia, Suicidal, Other Physical Exam Vital Signs: Vital Signs Temperature 98.9 F 12/08/17 10:00 Pulse Rate 62 12/08/17 10:00 Respiratory Rate 18 12/08/17 10:00 Blood Pressure 143/84 12/08/17 10:00 O2 Sat by Pulse Oximetry (%) 98 12/08/17 04:32 Constitutional: Yes: No Distress, Calm Neck: Yes: Supple Cardiovascular: Yes: Tachycardia Respiratory: Yes: CTA Bilaterally Gastrointestinal: Yes: Normal Bowel Sounds, Soft Renal/: Yes: Anuria, Other (AVG) Musculoskeletal: Yes: WNL Edema: Yes Edema: LLE: 3+, RLE: 3+ Integumentary: Yes: Venous Stasis Changes (RLE medial ulcer with eschar, no underlying fluctuance Rt plantar ulcer dry) Wound/Incision: Yes: Draining (RLE lateral leg fluctuant lesion with purulent drainage Rt tibial fluctuant lesion, non draining) Neurological: Yes: Alert, Oriented Psychiatric: Yes: Alert, Oriented Labs: CBC, BMP 12/08/17 09:30 12/08/17 10:00 Laboratory Tests 12/07/17 12/07/17 12/07/17 14:50 14:50 14:50 WBC 14.7 H RBC 3.35 L Hgb 8.8 L Hct 28.5 L MCV 85.0 MCH 26.2 MCHC 30.8 L RDW 17.1 H Plt Count 604 H MPV 9.1 Absolute Neuts (auto) 11.4 H Neutrophils % 77.5 Lymphocytes % 5.7 L D Monocytes % 14.7 H Eosinophils % 0.8 Basophils % 1.3 Nucleated RBC % 0 ESR Sodium 133 L Potassium 5.9 H Chloride 95 L Carbon Dioxide 22 Anion Gap 16 BUN 67 H Creatinine 5.2 H Creat Clearance w eGFR 9.85 POC Glucometer Random Glucose 480 H* Hemoglobin A1c % Calcium 8.9 Total Bilirubin 0.2 AST 21 ALT 10 L Alkaline Phosphatase 757 H D C-Reactive Protein Total Protein 7.8 Albumin 2.6 L Serum , Qual Negative Acetone, Qual 12/07/17 12/07/17 12/07/17 14:50 14:50 14:50 WBC RBC Hgb Hct MCV MCH MCHC RDW Plt Count MPV Absolute Neuts (auto) Neutrophils % Lymphocytes % Monocytes % Eosinophils % Basophils % Nucleated RBC % ESR 104 H Sodium Potassium Chloride Carbon Dioxide Anion Gap BUN Creatinine Creat Clearance w eGFR POC Glucometer Random Glucose Hemoglobin A1c % Calcium Total Bilirubin AST ALT Alkaline Phosphatase C-Reactive Protein 13.4 H Total Protein Albumin Serum , Qual Acetone, Qual Trace H 12/07/17 12/08/17 12/08/17 18:34 09:30 09:30 WBC 11.4 H RBC 3.27 L Hgb 8.3 L Hct 27.1 L MCV 83.0 MCH 25.3 L MCHC 30.5 L RDW 16.6 H Plt Count 554 H MPV 8.1 D Absolute Neuts (auto) 8.2 H Neutrophils % 71.7 Lymphocytes % 9.3 D Monocytes % 15.7 H Eosinophils % 2.3 D Basophils % 1.0 Nucleated RBC % 0 ESR Sodium 135 L Potassium 5.5 H Chloride 99 Carbon Dioxide 22 Anion Gap 14 BUN 80 H Creatinine 6.1 H Creat Clearance w eGFR 8.19 POC Glucometer > 400 Random Glucose 226 H Hemoglobin A1c % Calcium 8.5 Total Bilirubin 0.5 AST 14 L ALT 9 L Alkaline Phosphatase 673 H D C-Reactive Protein 14.6 H Total Protein 7.2 Albumin 2.4 L Serum , Qual Acetone, Qual 12/08/17 12/08/17 12/08/17 09:30 10:00 10:00 WBC RBC Hgb Hct MCV MCH MCHC RDW Plt Count MPV Absolute Neuts (auto) Neutrophils % Lymphocytes % Monocytes % Eosinophils % Basophils % Nucleated RBC % ESR Sodium Cancelled Potassium Cancelled Chloride Cancelled Carbon Dioxide Cancelled Anion Gap Cancelled BUN Cancelled Creatinine Cancelled Creat Clearance w eGFR Cancelled POC Glucometer Random Glucose Cancelled Hemoglobin A1c % 10.8 H Calcium Cancelled Total Bilirubin Cancelled AST Cancelled ALT Cancelled Alkaline Phosphatase Cancelled C-Reactive Protein Cancelled Total Protein Cancelled Albumin Cancelled Serum , Qual Acetone, Qual Wound culture RLE - pending Imaging - Results Cat Scan: Pending Problem List - Problems (1) Leg abscess Code(s): L02.419 - CUTANEOUS ABSCESS OF LIMB, UNSPECIFIED (2) HTN (hypertension) Code(s): I10 - ESSENTIAL (PRIMARY) HYPERTENSION Qualifiers: Hypertension type: unspecified Qualified Code(s): I10 - Essential (primary ) hypertension (3) Anemia Code(s): D64.9 - ANEMIA, UNSPECIFIED (5) Cardiac arrest Code(s): I46.9 - CARDIAC ARREST, CAUSE UNSPECIFIED (6) Ulcer of right leg Code(s): L97.919 - NON-PRS CHRONIC ULC UNSP PRT OF R LOW LEG W UNSP SEVERITY (7) Chronic GERD Code(s): K21.9 - GASTRO-ESOPHAGEAL REFLUX DISEASE WITHOUT ESOPHAGITIS (8) Diabetes mellitus, insulin dependent (IDDM), uncontrolled Code(s): E10.65 - TYPE 1 DIABETES MELLITUS WITH HYPERGLYCEMIA (9) Diabetic foot ulcer Code(s): E11.621 - TYPE 2 DIABETES MELLITUS WITH FOOT ULCER; L97.509 - NON- PRESSURE CHRONIC ULCER OTH PRT UNSP FOOT W UNSP SEVERITY (10) ESRD (end stage renal disease) on dialysis Code(s): N18.6 - END STAGE RENAL DISEASE; Z99.2 - DEPENDENCE ON RENAL DIALYSIS Assessment/Plan 27 y.o. female with PMH of ESRD on HD (M/W/F) last on wednesday, HTN, DVT/PE, PVD, Rt foot/leg venous stasis ulcers, CHF, b/l LE edema, Cardiac arrest presenting with RLE fluctuant lesions with purulent drainage, warmth, erythema along with leukocytosis RLE Abscess Leukocytosis ESRD on HD Hx of DVT/PE Hx of Cardiac Arrest CHF PVD RLE/foot chronic ulcers with venous stasis changes -- pt given dose of Vancomycin yesterday, should be administered post each HD -- Renal to evaluate -- Surgery following, needs I+D -- f/u CT leg -- f/u wound cultures sent (previous hx of MRSA infected ulcers) -- send blood cultures, vancomycin random level -- needs glycemic control -- continue wound care will f/u Thank you
[2017-12-08] MEDS: INSULIN SLIDING SCALE (NOVOLOG) 1 VIAL SQ SCH ×2 (13:59→22:01)
[2017-12-08] MEDS ORDERED: INSULIN (NOVOLOG) ASPART 100 UNITS/ML 10ML VIAL ONE ×2 (13:59→21:52)
[2017-12-08] MEDS ORDERED: SODIUM CHLORIDE 250 ML IV PRN ×2 (14:44→18:09)
[2017-12-08] MEDS ORDERED: EPOETIN ALFA 20,000 UNIT/1 ML VIAL IVPUSH ONE (14:45)
[2017-12-08] MEDS: ALBUTEROL SO4 0.083% IH SOL 2.5 MG/3 ML VIAL.NEB. NEB SCH ×2 (16:05→21:02)
[2017-12-08] MEDS: cloNIDine HCL 0.1 MG TABLET PO SCH ×2 (16:39→22:02)
--- NOTE | 2017-12-08 18:01 | PN ---
Progress Note (short form) - Note Progress Note: Renal follow up for ESRD on HD This is a 27 year old AA woman well known to our service with ESRD on HD, Fluid overload, Uncontrolled DM, Hypertension, Chronic LE edmea who presented from wound care clinic with LE wounds and edema. Pt was recently discharged from the hospital s/p admission for fluid overload. Denies any sob, chest pain, fever, chills. Legs in dressing. No N/V/D Vital Signs Temperature 97.8 F 12/08/17 15:25 Pulse Rate 91 H 12/08/17 16:30 Respiratory Rate 18 12/08/17 16:30 Blood Pressure 152/98 12/08/17 16:30 O2 Sat by Pulse Oximetry (%) 98 12/08/17 09:00 Intake & Output 12/05/17 12/06/17 12/07/17 12/08/17 23:59 23:59 23:59 23:59 Weight 61.235 kg NAD awake and alert RRR CTA soft NT/ND ++ edema in LE, legs in dressing AVF with good bruit CBC, BMP 12/08/17 09:30 12/08/17 16:10 Current Medications Albuterol Sulfate (Ventolin 0.083% Nebulizer Soln -) 1 amp NEB RQID [facility] Last Admin: 12/08/17 16:05 Dose: 1 amp Clonidine (Catapres -) 0.3 mg PO TID [facility] Last Admin: 12/08/17 16:39 Dose: Not Given Gabapentin (Neurontin -) 300 mg PO BID [facility] Last Admin: 12/08/17 11:20 Dose: 300 mg Heparin Sodium (Porcine) (Heparin -) 5,000 unit SQ BID [facility] Last Admin: 12/08/17 11:37 Dose: Not Given Sodium Chloride (Normal Saline -) 250 mls @ 3,000 mls/hr IV PRN PRN PRN Reason: Hypotension during Dialysis Stop: 12/09/17 14:43 Insulin Aspart (Novolog Vial Sliding Scale -) 1 vial SQ ACHS [facility]; Protocol Last Admin: 12/08/17 13:59 Dose: 14 units Oxycodone HCl (Roxicodone -) 5 mg PO Q4H PRN PRN Reason: PAIN LEVEL 1-5 Last Admin: 12/08/17 11:30 Dose: 5 mg 27 year old AA woman well known to our service with ESRD on HD, Fluid overload, Uncontrolled DM, Hypertension, Chronic LE edmea who presented from wound care clinic with LE wounds and edema. #Le wounds r/o abcess #ESRD on HD #CKD related Anemia #DM #Hypertension Surgical evalulation of LE Abx as per ID f/u cultures HD today with UF as tolerated Will continue high dose MACIE with HD Continue Nifedpine, Clonidine, Hydralaizine, and Losartan for BP contorl Will plan for additional UF tomorrow Thank you Nathan Vo DO
--- NOTE | 2017-12-08 18:03 | PN ---
Progress Note (short form) - Note Progress Note: VAscular Surgery Pt seen and examined. Pt seen during HD RLE examined. Pus draining from right lateral leg. Will need drainage of abcess in OR herbie . NPO past midnight Tre Carr DO
[2017-12-08] MEDS: hydrALAZINE HCL 50 MG TABLET (FP) PO SCH (22:01)
[2017-12-08] MEDS: LABETALOL HCL 200 MG TABLET (FP) PO SCH (22:03)
--- NOTE | 2017-12-08 23:56 | CONSULT ---
Consult Consult Specialty:: ENDOCRINE Referred by:: LEXI WARNER NP Reason for Consultation:: IDDM/ESRD - History of Present Illness Chief Complaint: HIGH SUGARS History of Present Illness: 27 y/o woman with PMHx of ESRD on HD (M,W,F LUE AVF), IDDM, HTN, PVD, Atrial thrombus, Cardiac Arrest, Pneumonia, Right Foot ulcer. Who presents to the ED, sent in for admission by podiatry for right leg abscess. Patient states she is currently following up with Dr. Dubon of podiatry for care of her right foot plantar ulcer and was told ulcer was healing well per patient, but over the past several days has noticed swelling of her right leg with an area of purulent drainage.Has frequent admission with dka,hyperglycemia,poor control blood sugars,labile sugar levels since foot infection. - History Source History Provided By: Patient - Past Medical History Cardio/Vascular: Yes: CHF, Deep Vein Thrombosis, HTN, Other (thrombus in atrium , PE, DVT) Pulmonary: No: Sleep Apnea Renal/: Yes: Renal Failure, Hemodialysis ...LMP: 05/13/17 Infectious Disease: Yes: MRSA, Other Endocrine: Yes: Diabetes Mellitus (type 1 on insulin pump) Additional Medical History: DVT, PE on coumadin - Past Surgical History Past Surgical History: Yes: AV Fistula/Graft (Right arm) - Alcohol/Substance Use Hx Alcohol Use: No History of Substance Use: reports: None - Smoking History Smoking history: Never smoked Have you smoked in the past 12 months: No Aproximately how many cigarettes per day: 10 If you are a former smoker, when did you quit?: couple months ago - Social History Usual Living Arrangement: With Parent ADL: Independent Occupation: unemployed History of Recent Travel: No Home Medications - Allergies Allergies/Adverse Reactions: Allergies Allergy/AdvReac Type Severity Reaction Status Date / Time lactose AdvReac Verified 12/07/17 12:52 - Home Medications Home Medications: Ambulatory Orders cloNIDine HCL [Catapres -] 0.3 mg PO TID 06/28/17 Collagenase Clostridium Hist. [Santyl -] 1 applic TP DAILY #1 tube 10/01/17 Insulin Detemir [Levemir Flextouch] 17 unit SQ BID #1 insuln.pen 10/01/17 Insulin Lispro [Humalog Kwikpen U-100] 100 unit SQ ASDIR #10 insuln.pen oxyCODONE HCL [Roxicodone -] 10 mg PO Q6H PRN #20 tablet MDD 4 10/29/17 Oxycodone HCl 10 mg PO Q6H PRN #15 tablet MDD 4 11/12/17 Albuterol 0.083% Nebulizer No [Ventolin 0.083% Nebulizer Soln -] 1 amp NEB Q6H #10 amp 12/02/17 Nebulizer Accessories [A.i.r.s. Nebulizer] 1 each MC PRN #1 kit 12/02/17 Gabapentin [Neurontin -] 300 mg PO BID 12/07/17 Family Disease History - Family Disease History Family Disease History: Diabetes: Grandparent (HTN), Heart Disease: Grandparent , Other: Father (unknown), Mother (HTN) Review of Systems - Review of Systems Constitutional: reports: Lethargy, Weakness Eyes: reports: Blurred Vision HENT: reports: Difficult Swallowing Neck: reports: No Symptoms Cardiovascular: reports: Shortness of Breath Respiratory: reports: Exercise Intolerance Gastrointestinal: reports: Bloating, Constipation, Diarrhea Genitourinary: reports: Flank Pain Musculoskeletal: reports: Back Pain, Extremity Pain, Joint Swelling, Muscle Pain , Muscle Cramps, Muscle Weakness Integumentary: reports: Blister, Pruritis Neurological: reports: Numbness, Weakness Psychiatric: reports: Anxiety Physical Exam Vital Signs: Vital Signs Temperature 97.8 F 12/08/17 15:25 Pulse Rate 94 H 12/08/17 20:10 Respiratory Rate 18 12/08/17 20:10 Blood Pressure 177/96 12/08/17 20:10 O2 Sat by Pulse Oximetry (%) 98 12/08/17 09:00 Constitutional: Yes: Calm Eyes: Yes: EOM Intact HENT: Yes: Normocephalic Neck: Yes: Trachea Midline Cardiovascular: Yes: Regular Rate and Rhythm Respiratory: Yes: CTA Bilaterally Gastrointestinal: Yes: Soft ...Rectal Exam: Yes: Deferred Musculoskeletal: Yes: Back Pain, Joint Stiffness, Joint Swelling, Muscle Pain Edema: Yes Integumentary: Yes: Venous Stasis Changes Wound/Incision: Yes: Draining Neurological: Yes: Alert, Oriented Labs: CBC, BMP 12/08/17 09:30 09/05/18 16:10 Problem List - Problems (1) 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 Code(s): E10.52 - TYPE 1 DIABETES W DIABETIC PERIPHERAL ANGIOPATHY W GANGRENE (2) Diabetes mellitus type 1 with peripheral artery disease Code(s): E10.51 - TYPE 1 DIABETES W DIABETIC PERIPHERAL ANGIOPATH W/O GANGRENE (3) Hyperglycemia Code(s): R73.9 - HYPERGLYCEMIA, UNSPECIFIED (4) Leg abscess Code(s): L02.419 - CUTANEOUS ABSCESS OF LIMB, UNSPECIFIED (5) HTN (hypertension) Code(s): I10 - ESSENTIAL (PRIMARY) HYPERTENSION Qualifiers: Hypertension type: unspecified Qualified Code(s): I10 - Essential (primary ) hypertension (6) Anemia Code(s): D64.9 - ANEMIA, UNSPECIFIED (7) Atelectasis of right lung Code(s): J98.11 - ATELECTASIS Assessment/Plan Current Active Problems Hyperglycemia (Acute) Leg abscess (Acute) HTN (hypertension) (Chronic) iddm uncontrolled hyperglycemia diabetic neuropathy leg ulcer Abnormal Lab Results 12/08/17 12/08/17 12/08/17 09:30 09:30 09:30 WBC 11.4 H RBC 3.27 L Hgb 8.3 L Hct 27.1 L MCH 25.3 L MCHC 30.5 L RDW 16.6 H Plt Count 554 H Absolute Neuts (auto) 8.2 H Monocytes % 15.7 H Sodium 135 L Potassium 5.5 H BUN 80 H Creatinine 6.1 H Random Glucose 226 H Hemoglobin A1c % 10.8 H AST 14 L ALT 9 L Alkaline Phosphatase 673 H D C-Reactive Protein 14.6 H Albumin 2.4 L Acetone, Qual 12/08/17 12/08/17 10:00 16:10 WBC RBC Hgb Hct MCH MCHC RDW Plt Count Absolute Neuts (auto) Monocytes % Sodium Potassium BUN Creatinine Random Glucose 376 H* Hemoglobin A1c % AST ALT Alkaline Phosphatase C-Reactive Protein Albumin Acetone, Qual Negative L Laboratory Tests 06/03/17 06/03/17 06/04/17 21:15 22:07 01:50 Sodium 135 L Potassium 3.2 L Chloride 97 L Carbon Dioxide 26 Anion Gap 12 BUN 30 H D Creatinine 3.7 H POC Glucometer 89.20504 89.30560 Hemoglobin A1c % 06/04/17 12/08/17 06:35 09:30 Sodium Potassium Chloride Carbon Dioxide Anion Gap BUN Creatinine POC Glucometer 83.40364 Hemoglobin A1c % 10.8 H plan: levemir 18 units am once diet resumes bgm qid novolog scale since npo for procedure hold am dose bgm q4h till after procedure diet nutrition outpatient close monitoring
[2017-12-09] MEDS ORDERED: INSULIN SLIDING SCALE (NOVOLOG) 1 VIAL SQ SCH (00:03)
[2017-12-09] MEDS: INSULIN SLIDING SCALE (NOVOLOG) 1 VIAL SQ SCH ×7 (00:25→22:00)
[2017-12-09] MEDS: oxyCODONE HCL 5 MG TABLET PO PRN ×3 (04:17→19:12)
[2017-12-09] MEDS: cloNIDine HCL 0.1 MG TABLET PO SCH ×4 (06:12→21:51)
[2017-12-09] MEDS: hydrALAZINE HCL 50 MG TABLET (FP) PO SCH ×4 (06:12→21:52)
[2017-12-09] MEDS ORDERED: INSULIN (LEVEMIR) 100 UNITS/ML UNITS SQ ONE (06:55)
[2017-12-09] MEDS: ALBUTEROL SO4 0.083% IH SOL 2.5 MG/3 ML VIAL.NEB. NEB SCH ×6 (07:30→20:26)
[2017-12-09 07:46] LABS: HEMATOCRIT 26.6 % (32.4-45.2); HEMOGLOBIN 8.1 GM/dL (10.7-15.3); MCH 25.5 pg (25.7-33.7); MCHC 30.2 g/dl (32.0-36.0); MEAN CELL VOLUME 84.2 fl (80-96); MEAN PLT VOLUME 9.1 fl (7.5-11.1); PLATELET COUNT 484 K/MM3 (134-434); RBC 3.17 M/mm3 (3.60-5.2); RDW 16.8 % (11.6-15.6); WHITE BLOOD COUNT 15.4 K/mm3 (4.0-10.0)
[2017-12-09] MEDS: LOSARTAN POTASSIUM 50 MG TABLET (FP) PO SCH ×2 (07:55→09:27)
[2017-12-09 08:33] LABS: ANION GAP 16 MMOL/L (8-16); BLOOD UREA NITROGEN 50 mg/dL (7-18); CALCIUM 8.1 mg/dL (8.5-10.1); CHLORIDE 94 mmol/L (98-107); CO2 24 mmol/L (21-32); CREATININE 4.1 mg/dL (0.55-1.02); PHOSPHOROUS 6.2 mg/dL (2.5-4.9); SODIUM 134 mmol/L (136-145)
[2017-12-09 08:36] LABS: GLUCOSE,RANDOM 576 mg/dL (74-106)
[2017-12-09] MEDS ORDERED: INSULIN (NOVOLOG) ASPART 100 UNITS/ML 10ML VIAL ONE ×2 (08:42→21:56)
[2017-12-09] MEDS: GABAPENTIN 300 MG CAPSULE (FP) PO SCH ×2 (09:27→21:52)
[2017-12-09] MEDS: LABETALOL HCL 200 MG TABLET (FP) PO SCH ×2 (09:27→21:51)
[2017-12-09] MEDS: HEPARIN NA (PORCINE) 5,000 UNITS/ML 1ML VIAL SQ SCH ×2 (09:29→22:00)
--- NOTE | 2017-12-09 10:13 | PN ---
Progress Note, Physician Chief Complaint: EVENTS AND NOTES REVIEWED AWAKE ALERT NO DISTRESS AWAITING FOR SURGERY RIGHT LOWER EXTREMITY ABSCESS - Current Medication List Current Medications: Active Medications Albuterol Sulfate (Ventolin 0.083% Nebulizer Soln -) 1 amp NEB RQID [facility] Last Admin: 12/09/17 07:55 Dose: Not Given Clonidine (Catapres -) 0.3 mg PO TID [facility] Last Admin: 12/09/17 06:12 Dose: 0.3 mg Gabapentin (Neurontin -) 300 mg PO BID [facility] Last Admin: 12/09/17 09:27 Dose: 300 mg Heparin Sodium (Porcine) (Heparin -) 5,000 unit SQ BID [facility] Last Admin: 12/09/17 09:29 Dose: Not Given Hydralazine HCl (Apresoline -) 100 mg PO TID [facility] Last Admin: 12/09/17 06:12 Dose: 100 mg Sodium Chloride (Normal Saline -) 250 mls @ 3,000 mls/hr IV PRN PRN PRN Reason: Hypotension during Dialysis Stop: 12/09/17 14:43 Sodium Chloride (Normal Saline -) 250 mls @ 3,000 mls/hr IV PRN PRN PRN Reason: Hypotension during Dialysis Stop: 12/09/17 18:09 Insulin Aspart (Novolog Vial Sliding Scale -) 1 vial SQ Q4H [facility]; Protocol Last Admin: 12/09/17 08:20 Dose: 14 units Labetalol HCl (Normodyne -) 400 mg PO BID [facility] Last Admin: 12/09/17 09:27 Dose: 400 mg Losartan Potassium (Cozaar -) 100 mg PO DAILY [facility] Last Admin: 12/09/17 09:27 Dose: 100 mg Oxycodone HCl (Roxicodone -) 5 mg PO Q4H PRN PRN Reason: PAIN LEVEL 1-5 Last Admin: 12/09/17 09:27 Dose: 5 mg - Objective Vital Signs: Vital Signs Temperature 98.5 F 12/09/17 06:50 Pulse Rate 91 H 12/09/17 09:00 Respiratory Rate 18 12/09/17 09:00 Blood Pressure 158/98 12/09/17 09:00 O2 Sat by Pulse Oximetry (%) 98 12/08/17 09:00 Constitutional: Yes: No Distress Eyes: Yes: WNL HENT: Yes: WNL Neck: Yes: WNL Cardiovascular: Yes: WNL Respiratory: Yes: WNL Gastrointestinal: Yes: WNL Genitourinary: Yes: WNL Musculoskeletal: Yes: Muscle Weakness Extremities: Yes: Deformity Edema: No Peripheral Pulses WNL: Yes Integumentary: Yes: Pressure Ulcer, Rash Wound/Incision: Yes: Dressing Dry and Intact, Unapproximated Neurological: Yes: Pre-Existing Deficit ...Motor Strength: RLE Psychiatric: Yes: Other Labs: CBC, BMP 12/09/17 07:00 12/09/17 07:00 Problem List - Problems (1) Diabetes mellitus type 1 with peripheral artery disease Code(s): E10.51 - TYPE 1 DIABETES W DIABETIC PERIPHERAL ANGIOPATH W/O GANGRENE (2) Hyperglycemia Code(s): R73.9 - HYPERGLYCEMIA, UNSPECIFIED (3) Leg abscess Code(s): L02.419 - CUTANEOUS ABSCESS OF LIMB, UNSPECIFIED (4) 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 Code(s): E10.52 - TYPE 1 DIABETES W DIABETIC PERIPHERAL ANGIOPATHY W GANGRENE (5) HTN (hypertension) Code(s): I10 - ESSENTIAL (PRIMARY) HYPERTENSION Qualifiers: Hypertension type: unspecified Qualified Code(s): I10 - Essential (primary ) hypertension (6) Anemia Code(s): D64.9 - ANEMIA, UNSPECIFIED (7) Diabetes mellitus, insulin dependent (IDDM), uncontrolled Code(s): E10.65 - TYPE 1 DIABETES MELLITUS WITH HYPERGLYCEMIA (8) ESRD (end stage renal disease) on dialysis Code(s): N18.6 - END STAGE RENAL DISEASE; Z99.2 - DEPENDENCE ON RENAL DIALYSIS Assessment/Plan MEDICALLY CLEARED FOR SURGERY I&D AND DEBRIDING WOUND TO RIGHT LOWER EXTREMITY DM CONTROL ENDOCRINE CONSULT IV ABX RENAL F/U APPRECIATED ESRD-HD
[2017-12-09] MEDS ORDERED: VANCOMYCIN 1,000 MG in DEXTROSE 5%-WATER - 250 ML IVPB ONE ×2 (11:49→14:41)
[2017-12-09] MEDS ORDERED: PIPERACILLIN/TAZOB 2.25 GM 2.25 GM in DEXTROSE 5%-WATER - 50 ML IVPB SCH (12:00)
[2017-12-09] MEDS ORDERED: ALBUTEROL SO4 0.083% IH SOL 2.5 MG/3 ML VIAL.NEB. NEB ONE (12:58)
[2017-12-09] MEDS ORDERED: MIDAZOLAM HCL 2 MG/2 ML SINGLE DOSE VIAL ONE ×2 (13:06)
[2017-12-09] MEDS ORDERED: KETAMINE HCL 200 MG/20 ML VIAL ONE (13:06)
[2017-12-09] MEDS ORDERED: INSULIN (NOVOLOG) ASPART 100 UNITS/ML 10ML VIAL SQ ONE (13:10)
[2017-12-09] MEDS ORDERED: GLYCOPYRROLATE 0.2 MG/1 ML VIAL ONE (13:25)
[2017-12-09] MEDS ORDERED: PROPOFOL 20 ML ONE (13:33)
[2017-12-09] MEDS ORDERED: VANCOMYCIN 1,000 MG VIAL (RESTRICTED TO ID ONLY) ONE (13:35)
[2017-12-09] MEDS ORDERED: PIPERACILLIN/TAZOBACTAM 3.375 GM VIAL IVPB ONE ×2 (13:38→13:40)
[2017-12-09] MEDS ORDERED: VANCOMYCIN 1,000 MG VIAL (RESTRICTED TO ID ONLY) IVPB ONE (13:40)
[2017-12-09] MEDS ORDERED: LIDOCAINE HCL 1%, 10 MG/ML (50 mL VIAL) INF ONE (13:41)
--- NOTE | 2017-12-09 14:14 | OP ---
Operative Note - Note: Operative Date: 12/09/17 Pre-Operative Diagnosis: Right lower extremity abscess. Operation: Abscess drainage (multi-loculated) right leg. Findings: Pus -- cultures sent Post-Operative Diagnosis: Same as Pre-op Surgeon: Tre Carr Anesthesia: Fractional Estimated Blood Loss (mls): 50 Operative Report Dictated: Yes
[2017-12-09] MEDS ORDERED: ONDANSETRON 4 MG/2 ML VIAL IVPUSH PRN (14:37)
[2017-12-09] MEDS ORDERED: SODIUM CHLORIDE 250 ML IV PRN ×2 (14:41)
--- NOTE | 2017-12-09 14:43 | PN ---
Progress Note (short form) - Note Progress Note: Renal Follow up Attempted to see pt at the bedside but pt is in the OR for abcess drainage. s/p isolated UF this am with 2.5L removed will continue HD on MWF schedule tomorrow Nathan Vo DO
[2017-12-09] MEDS ORDERED: SODIUM CHLORIDE 1,000 ML IV SCH (14:45)
--- NOTE | 2017-12-09 17:16 | PN ---
Progress Note, Physician History of Present Illness: Pt is s/p RLE I+D. States she feels better. Currently afebrile. - Current Medication List Current Medications: Active Medications Albuterol Sulfate (Ventolin 0.083% Nebulizer Soln -) 1 amp NEB RQID [facility] Clonidine (Catapres -) 0.3 mg PO TID [facility] Last Admin: 12/09/17 16:04 Dose: 0.3 mg Epoetin Abiel (Epogen -) 20,000 unit IVPUSH ONCE ONE Stop: 12/10/17 08:01 Gabapentin (Neurontin -) 300 mg PO BID [facility] Heparin Sodium (Porcine) (Heparin -) 5,000 unit SQ BID [facility] Hydralazine HCl (Apresoline -) 100 mg PO TID [facility] Last Admin: 12/09/17 16:04 Dose: 100 mg Sodium Chloride (Normal Saline -) 250 mls @ 3,000 mls/hr IV PRN PRN PRN Reason: Hypotension during Dialysis Stop: 12/09/17 14:43 Sodium Chloride (Normal Saline -) 250 mls @ 3,000 mls/hr IV PRN PRN PRN Reason: Hypotension during Dialysis Stop: 12/09/17 18:09 Vancomycin HCl 1,000 mg/ (Dextrose) 250 mls @ 166.667 mls/hr IVPB ONCE ONE; Protocol Stop: 12/09/17 16:10 Last Admin: 12/09/17 16:26 Dose: Not Given Piperacillin Sod/Tazobactam (Sod 2.25 gm/ Dextrose) 50 mls @ 100 mls/hr IVPB Q8H-IV [facility]; Protocol Sodium Chloride (Normal Saline -) 250 mls @ 3,000 mls/hr IV PRN PRN PRN Reason: Hypotension during Dialysis Stop: 12/10/17 16:07 Vancomycin HCl 1,000 mg/ (Dextrose) 250 mls @ 166.667 mls/hr IVPB ONCE ONE; Protocol Stop: 12/10/17 09:29 Insulin Aspart (Novolog Vial Sliding Scale -) 1 vial SQ Q4HPO [facility]; Protocol Labetalol HCl (Normodyne -) 400 mg PO BID [facility] Losartan Potassium (Cozaar -) 100 mg PO DAILY [facility] Oxycodone HCl (Roxicodone -) 5 mg PO Q4H PRN PRN Reason: PAIN LEVEL 1-5 - Objective Vital Signs: Vital Signs Temperature 98.2 F 12/09/17 16:37 Pulse Rate 87 12/09/17 16:37 Respiratory Rate 22 12/09/17 16:37 Blood Pressure 124/74 12/09/17 16:37 O2 Sat by Pulse Oximetry (%) 100 12/09/17 16:37 Constitutional: Yes: No Distress, Calm Cardiovascular: Yes: Regular Rate and Rhythm Respiratory: Yes: Regular Gastrointestinal: Yes: Normal Bowel Sounds, Soft Wound/Incision: Yes: Dressing Dry and Intact Neurological: Yes: Alert, Oriented Labs: CBC, BMP 12/09/17 07:00 12/09/17 07:00 Microbiology 12/08/17 16:10 Blood - Peripheral Venous Blood Culture - Preliminary NO GROWTH OBTAINED AFTER 24 HOURS, INCUBATION TO CONTINUE FOR 4 DAYS. 12/08/17 16:00 Blood - Peripheral Venous Blood Culture - Preliminary NO GROWTH OBTAINED AFTER 24 HOURS, INCUBATION TO CONTINUE FOR 4 DAYS. 12/07/17 17:30 Abscess Gram Stain - Final 12/07/17 17:30 Abscess Wound Culture - Preliminary Non Lactose Fermenting Gnb Problem List - Problems (1) Leg abscess Code(s): L02.419 - CUTANEOUS ABSCESS OF LIMB, UNSPECIFIED (2) HTN (hypertension) Code(s): I10 - ESSENTIAL (PRIMARY) HYPERTENSION Qualifiers: Hypertension type: unspecified Qualified Code(s): I10 - Essential (primary ) hypertension (3) Anemia Code(s): D64.9 - ANEMIA, UNSPECIFIED (5) Cardiac arrest Code(s): I46.9 - CARDIAC ARREST, CAUSE UNSPECIFIED (6) Ulcer of right leg Code(s): L97.919 - NON-PRS CHRONIC ULC UNSP PRT OF R LOW LEG W UNSP SEVERITY (7) Chronic GERD Code(s): K21.9 - GASTRO-ESOPHAGEAL REFLUX DISEASE WITHOUT ESOPHAGITIS (8) Diabetes mellitus, insulin dependent (IDDM), uncontrolled Code(s): E10.65 - TYPE 1 DIABETES MELLITUS WITH HYPERGLYCEMIA (9) Diabetic foot ulcer Code(s): E11.621 - TYPE 2 DIABETES MELLITUS WITH FOOT ULCER; L97.509 - NON- PRESSURE CHRONIC ULCER OTH PRT UNSP FOOT W UNSP SEVERITY (10) ESRD (end stage renal disease) on dialysis Code(s): N18.6 - END STAGE RENAL DISEASE; Z99.2 - DEPENDENCE ON RENAL DIALYSIS Assessment/Plan 27 y.o. female with PMH of ESRD on HD (M/W/F) last on wednesday, HTN, DVT/PE, PVD, Rt foot/leg venous stasis ulcers, CHF, b/l LE edema, Cardiac arrest presenting with RLE fluctuant lesions with purulent drainage, warmth, erythema along with leukocytosis RLE Multiloculated Abscess s/p I+D POD#0 Leukocytosis ESRD on HD Hx of DVT/PE Hx of Cardiac Arrest CHF PVD RLE/foot chronic ulcers with venous stasis changes -- cont. Vancomycin, Zosyn added -- f/u wound culture isolates -- Vancomycin level prior to HD -- monitor wbc trend -- continue wound care -- needs glycemic control
[2017-12-09] MEDS: PIPERACILLIN/TAZOB 2.25 GM 2.25 GM in DEXTROSE 5%-WATER - 50 ML IVPB SCH (20:18)
[2017-12-09] MEDS ORDERED: DEXTROSE 5%-WATER - 50 ML IVPB ONE (23:45)
[2017-12-09] MEDS ORDERED: PIPERACILLIN/TAZOBACTAM 2.25 GM VIAL IVPB ONE (23:45)
[2017-12-10] MEDS: oxyCODONE HCL 5 MG TABLET PO PRN ×3 (00:38→19:44)
[2017-12-10] MEDS: PIPERACILLIN/TAZOB 2.25 GM 2.25 GM in DEXTROSE 5%-WATER - 50 ML IVPB SCH ×3 (01:35→19:33)
[2017-12-10] MEDS: INSULIN SLIDING SCALE (NOVOLOG) 1 VIAL SQ SCH ×4 (01:39→21:30)
[2017-12-10] MEDS: cloNIDine HCL 0.1 MG TABLET PO SCH ×3 (06:00→21:27)
[2017-12-10] MEDS: hydrALAZINE HCL 50 MG TABLET (FP) PO SCH ×3 (06:03→21:30)
[2017-12-10] MEDS: ALBUTEROL SO4 0.083% IH SOL 2.5 MG/3 ML VIAL.NEB. NEB SCH ×4 (07:20→21:24)
[2017-12-10] MEDS ORDERED: VANCOMYCIN 1 GM PREMIX - 1 GM/200 ML BAG IVPB ONE (08:00)
[2017-12-10] MEDS ORDERED: DEXTROSE 5%-WATER - 50 ML IVPB ONE ×2 (08:24→17:23)
[2017-12-10] MEDS ORDERED: PIPERACILLIN/TAZOBACTAM 2.25 GM VIAL IVPB ONE ×2 (08:24→17:23)
--- NOTE | 2017-12-10 08:31 | PN ---
Progress Note, Physician Chief Complaint: S/P LOWER EXTREMITY WOUND DEBRIDEMENT/ABSCESS DRAIANGE/I&D DOING WELL TODAY MILD PAIN 07/13 - Current Medication List Current Medications: Active Medications Albuterol Sulfate (Ventolin 0.083% Nebulizer Soln -) 1 amp NEB RQID [facility] Last Admin: 12/10/17 07:20 Dose: 1 amp Clonidine (Catapres -) 0.3 mg PO TID [facility] Last Admin: 12/10/17 06:00 Dose: 0.3 mg Epoetin Abiel (Procrit -) 20,000 unit IVPUSH ONCE ONE Stop: 12/10/17 08:01 Gabapentin (Neurontin -) 300 mg PO BID [facility] Last Admin: 12/09/17 21:52 Dose: 300 mg Heparin Sodium (Porcine) (Heparin -) 5,000 unit SQ BID [facility] Last Admin: 12/09/17 22:00 Dose: Not Given Hydralazine HCl (Apresoline -) 100 mg PO TID [facility] Last Admin: 12/10/17 06:03 Dose: Not Given Piperacillin Sod/Tazobactam (Sod 2.25 gm/ Dextrose) 50 mls @ 100 mls/hr IVPB Q8H-IV [facility]; Protocol Last Admin: 12/10/17 01:35 Dose: 100 mls/hr Sodium Chloride (Normal Saline -) 250 mls @ 3,000 mls/hr IV PRN PRN PRN Reason: Hypotension during Dialysis Stop: 12/10/17 10:01 Vancomycin HCl (Vancomycin 1 Gm Premix -) 1 gm in 200 mls @ 133.333 mls/hr IVPB ONCE ONE; Protocol Stop: 12/10/17 09:29 Insulin Aspart (Novolog Vial Sliding Scale -) 1 vial SQ Q4HPO [facility]; Protocol Last Admin: 12/10/17 06:06 Dose: 7 units Labetalol HCl (Normodyne -) 400 mg PO BID [facility] Last Admin: 12/09/17 21:51 Dose: Not Given Losartan Potassium (Cozaar -) 100 mg PO DAILY [facility] Oxycodone HCl (Roxicodone -) 5 mg PO Q4H PRN PRN Reason: PAIN LEVEL 1-5 Last Admin: 12/10/17 00:38 Dose: 5 mg - Objective Vital Signs: Vital Signs Temperature 98.4 F 12/10/17 05:00 Pulse Rate 87 12/10/17 05:00 Respiratory Rate 18 12/10/17 05:00 Blood Pressure 152/84 12/10/17 05:00 O2 Sat by Pulse Oximetry (%) 98 12/09/17 21:00 Constitutional: Yes: Mild Distress Eyes: Yes: WNL HENT: Yes: WNL Neck: Yes: WNL Cardiovascular: Yes: WNL Respiratory: Yes: WNL Gastrointestinal: Yes: WNL Genitourinary: Yes: WNL Musculoskeletal: Yes: Other Extremities: Yes: Deformity Integumentary: Yes: Other Wound/Incision: Yes: Dressing Dry and Intact, Unapproximated Neurological: Yes: Pre-Existing Deficit ...Motor Strength: LLE, RLE Psychiatric: Yes: WNL Labs: CBC, BMP 12/09/17 07:00 12/09/17 07:00 Problem List - Problems (1) Diabetes mellitus type 1 with peripheral artery disease Code(s): E10.51 - TYPE 1 DIABETES W DIABETIC PERIPHERAL ANGIOPATH W/O GANGRENE (2) Hyperglycemia Code(s): R73.9 - HYPERGLYCEMIA, UNSPECIFIED (3) Leg abscess Code(s): L02.419 - CUTANEOUS ABSCESS OF LIMB, UNSPECIFIED (4) 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 Code(s): E10.52 - TYPE 1 DIABETES W DIABETIC PERIPHERAL ANGIOPATHY W GANGRENE (5) HTN (hypertension) Code(s): I10 - ESSENTIAL (PRIMARY) HYPERTENSION Qualifiers: Hypertension type: unspecified Qualified Code(s): I10 - Essential (primary ) hypertension (6) Anemia Code(s): D64.9 - ANEMIA, UNSPECIFIED (7) Diabetes mellitus, insulin dependent (IDDM), uncontrolled Code(s): E10.65 - TYPE 1 DIABETES MELLITUS WITH HYPERGLYCEMIA (8) ESRD (end stage renal disease) on dialysis Code(s): N18.6 - END STAGE RENAL DISEASE; Z99.2 - DEPENDENCE ON RENAL DIALYSIS Assessment/Plan DM CONTROL DISCUSSED POOR COMPLIANCE IN PAST DIETARY AND NUTRITION CONSULT TO DISCUSS MEAL OPTIONS AND DM MENU ADA ENDOCRINE CONSULT IV ABX RENAL F/U APPRECIATED ESRD-HD
[2017-12-10] MEDS: HEPARIN NA (PORCINE) 5,000 UNITS/ML 1ML VIAL SQ SCH ×2 (09:11→21:30)
[2017-12-10] MEDS: GABAPENTIN 300 MG CAPSULE (FP) PO SCH ×2 (09:11→21:27)
[2017-12-10] MEDS: LABETALOL HCL 200 MG TABLET (FP) PO SCH ×2 (09:12→21:30)
[2017-12-10] MEDS: LOSARTAN POTASSIUM 50 MG TABLET (FP) PO SCH (09:18)
--- NOTE | 2017-12-10 10:56 | PN ---
Progress Note, Physician Chief Complaint: day 1 s/p IandD right knee - Current Medication List Current Medications: Active Medications Albuterol Sulfate (Ventolin 0.083% Nebulizer Soln -) 1 amp NEB RQID [facility] Last Admin: 12/10/17 07:20 Dose: 1 amp Clonidine (Catapres -) 0.3 mg PO TID [facility] Last Admin: 12/10/17 06:00 Dose: 0.3 mg Epoetin Abiel (Procrit -) 20,000 unit IVPUSH ONCE ONE Stop: 12/10/17 08:01 Gabapentin (Neurontin -) 300 mg PO BID [facility] Last Admin: 12/10/17 09:11 Dose: Not Given Heparin Sodium (Porcine) (Heparin -) 5,000 unit SQ BID [facility] Last Admin: 12/10/17 09:11 Dose: Not Given Hydralazine HCl (Apresoline -) 100 mg PO TID [facility] Last Admin: 12/10/17 06:03 Dose: Not Given Piperacillin Sod/Tazobactam (Sod 2.25 gm/ Dextrose) 50 mls @ 100 mls/hr IVPB Q8H-IV [facility]; Protocol Last Admin: 12/10/17 09:15 Dose: 100 mls/hr Sodium Chloride (Normal Saline -) 250 mls @ 3,000 mls/hr IV PRN PRN PRN Reason: Hypotension during Dialysis Stop: 12/10/17 10:01 Vancomycin HCl (Vancomycin 1 Gm Premix -) 1 gm in 200 mls @ 133.333 mls/hr IVPB ONCE ONE; Protocol Stop: 12/10/17 09:29 Insulin Aspart (Novolog Vial Sliding Scale -) 1 vial SQ Q4HPO [facility]; Protocol Last Admin: 12/10/17 06:06 Dose: 7 units Labetalol HCl (Normodyne -) 400 mg PO BID [facility] Last Admin: 12/10/17 09:12 Dose: Not Given Losartan Potassium (Cozaar -) 100 mg PO DAILY [facility] Last Admin: 12/10/17 09:18 Dose: 100 mg Oxycodone HCl (Roxicodone -) 5 mg PO Q4H PRN PRN Reason: PAIN LEVEL 1-5 Last Admin: 12/10/17 00:38 Dose: 5 mg - Objective Vital Signs: Vital Signs Temperature 98.8 F 12/10/17 10:00 Pulse Rate 72 09/07/18 10:00 Respiratory Rate 18 12/10/17 10:00 Blood Pressure 118/83 12/10/17 10:00 O2 Sat by Pulse Oximetry (%) 98 12/09/17 21:00 Labs: CBC, BMP 12/09/17 07:00 12/09/17 07:00 Assessment/Plan Resting comfortably in bed, no complaints. No anesthetic issues/complications
[2017-12-10] MEDS ORDERED: INSULIN (NOVOLOG) ASPART 100 UNITS/ML 10ML VIAL ONE (11:27)
--- NOTE | 2017-12-10 11:51 | PN ---
Progress Note (short form) - Note Progress Note: Renal follow up for ESRD on HD Pt seen and examined at the bedside no acute complaints denies any sob, cp, abd pain, N/V/D s/p OR for abcess drainage yesterday no fever or chills for dialysis today Vital Signs Temperature 98.8 F 12/10/17 10:00 Pulse Rate 72 12/10/17 10:00 Respiratory Rate 18 12/10/17 10:00 Blood Pressure 118/83 12/10/17 10:00 O2 Sat by Pulse Oximetry (%) 98 12/09/17 21:00 Intake & Output 12/07/17 12/08/17 12/09/17 12/10/17 23:59 23:59 23:59 23:59 Intake Total 300 650 Output Total 1 50 Balance 299 600 Weight 61.235 kg 61.235 kg NAD awake and alert RRR CTA soft NT/ND ++ edema in LE, legs in dressing AVF with good bruit CBC, BMP 12/09/17 07:00 12/09/17 07:00 Current Medications Albuterol Sulfate (Ventolin 0.083% Nebulizer Soln -) 1 amp NEB RQID [facility] Last Admin: 12/10/17 11:03 Dose: 1 amp Clonidine (Catapres -) 0.3 mg PO TID [facility] Last Admin: 12/10/17 06:00 Dose: 0.3 mg Diphenhydramine HCl (Benadryl Injection -) 50 mg IVPUSH ONCE ONE Stop: 12/10/17 11:49 Epoetin Abiel (Procrit -) 20,000 unit IVPUSH ONCE ONE Stop: 12/10/17 08:01 Gabapentin (Neurontin -) 300 mg PO BID [facility] Last Admin: 12/10/17 09:11 Dose: Not Given Heparin Sodium (Porcine) (Heparin -) 5,000 unit SQ BID [facility] Last Admin: 12/10/17 09:11 Dose: Not Given Hydralazine HCl (Apresoline -) 100 mg PO TID [facility] Last Admin: 12/10/17 06:03 Dose: Not Given Piperacillin Sod/Tazobactam (Sod 2.25 gm/ Dextrose) 50 mls @ 100 mls/hr IVPB Q8H-IV [facility]; Protocol Last Admin: 12/10/17 09:15 Dose: 100 mls/hr Sodium Chloride (Normal Saline -) 250 mls @ 3,000 mls/hr IV PRN PRN PRN Reason: Hypotension during Dialysis Stop: 12/10/17 10:01 Vancomycin HCl (Vancomycin 1 Gm Premix -) 1 gm in 200 mls @ 133.333 mls/hr IVPB ONCE ONE; Protocol Stop: 12/10/17 09:29 Insulin Aspart (Novolog Vial Sliding Scale -) 1 vial SQ Q4HPO [facility]; Protocol Last Admin: 12/10/17 11:29 Dose: 7 units Labetalol HCl (Normodyne -) 400 mg PO BID [facility] Last Admin: 12/10/17 09:12 Dose: Not Given Losartan Potassium (Cozaar -) 100 mg PO DAILY [facility] Last Admin: 12/10/17 09:18 Dose: 100 mg Oxycodone HCl (Roxicodone -) 5 mg PO Q4H PRN PRN Reason: PAIN LEVEL 1-5 Last Admin: 12/10/17 11:32 Dose: 5 mg 27 year old AA woman well known to our service with ESRD on HD, Fluid overload, Uncontrolled DM, Hypertension, Chronic LE edmea who presented from wound care clinic with LE wounds and edema. #LE Abcess #ESRD on HD #CKD related Anemia #DM #Hypertension for dialysis today with UF as tolerated will check Vanco levels with HD and redose vanco for level < 20 f/u cutlures ID follow up Vascular surgery follow up will continue high dose MACIE with HD no acute indication for transfusion Continue present BP meds Fluid restriction and salt restriction will reaccess need for UF tomorrow Nathan Vo DO
[2017-12-10 12:03] LABS: BASO % 1.8 % (0-2.0); EOS % 2.5 % (0-4.5); HEMATOCRIT 26.2 % (32.4-45.2); HEMOGLOBIN 8.1 GM/dL (10.7-15.3); LYMPH % 14.3 % (8-40); MCHC 31.1 g/dl (32.0-36.0); MEAN CELL VOLUME 83.6 fl (80-96); MEAN PLT VOLUME 8.5 fl (7.5-11.1); MONO % 12.8 % (3.8-10.2); NEUT % 68.6 % (42.8-82.8); PLATELET COUNT 534 K/MM3 (134-434); RBC 3.13 M/mm3 (3.60-5.2); RDW 16.8 % (11.6-15.6)
--- NOTE | 2017-12-10 14:06 | PN ---
Progress Note, Physician History of Present Illness: Pt doing well. Is afebrile, pain controlled. Has no specific complaints. - Current Medication List Current Medications: Active Medications Albuterol Sulfate (Ventolin 0.083% Nebulizer Soln -) 1 amp NEB RQID [facility] Last Admin: 12/10/17 11:03 Dose: 1 amp Clonidine (Catapres -) 0.3 mg PO TID [facility] Last Admin: 12/10/17 06:00 Dose: 0.3 mg Diphenhydramine HCl (Benadryl Injection -) 50 mg IVPUSH ONCE ONE Stop: 12/10/17 11:49 Epoetin Abiel (Procrit -) 20,000 unit IVPUSH ONCE ONE Stop: 12/10/17 08:01 Gabapentin (Neurontin -) 300 mg PO BID [facility] Last Admin: 12/10/17 09:11 Dose: Not Given Heparin Sodium (Porcine) (Heparin -) 5,000 unit SQ BID [facility] Last Admin: 12/10/17 09:11 Dose: Not Given Hydralazine HCl (Apresoline -) 100 mg PO TID [facility] Last Admin: 12/10/17 06:03 Dose: Not Given Piperacillin Sod/Tazobactam (Sod 2.25 gm/ Dextrose) 50 mls @ 100 mls/hr IVPB Q8H-IV [facility]; Protocol Last Admin: 12/10/17 09:15 Dose: 100 mls/hr Sodium Chloride (Normal Saline -) 250 mls @ 3,000 mls/hr IV PRN PRN PRN Reason: Hypotension during Dialysis Stop: 12/10/17 10:01 Vancomycin HCl (Vancomycin 1 Gm Premix -) 1 gm in 200 mls @ 133.333 mls/hr IVPB ONCE ONE; Protocol Stop: 12/10/17 09:29 Insulin Aspart (Novolog Vial Sliding Scale -) 1 vial SQ ACHS [facility]; Protocol Insulin Detemir (Levemir Vial) 20 units SQ AM [facility] Labetalol HCl (Normodyne -) 400 mg PO BID [facility] Last Admin: 12/10/17 09:12 Dose: Not Given Losartan Potassium (Cozaar -) 100 mg PO DAILY [facility] Last Admin: 12/10/17 09:18 Dose: 100 mg Oxycodone HCl (Roxicodone -) 5 mg PO Q4H PRN PRN Reason: PAIN LEVEL 1-5 Last Admin: 12/10/17 11:32 Dose: 5 mg - Objective Vital Signs: Vital Signs Temperature 98.8 F 12/10/17 10:00 Pulse Rate 72 12/10/17 10:00 Respiratory Rate 18 12/10/17 10:00 Blood Pressure 118/83 12/10/17 10:00 O2 Sat by Pulse Oximetry (%) 98 12/09/17 21:00 Constitutional: Yes: No Distress, Calm Cardiovascular: Yes: Regular Rate and Rhythm Respiratory: Yes: Regular Gastrointestinal: Yes: Normal Bowel Sounds, Soft Edema: LLE: 3+, RLE: 2+ Wound/Incision: Yes: Other (Dressing intact) Neurological: Yes: Alert, Oriented Labs: CBC, BMP 12/10/17 11:13 12/09/17 07:00 Problem List - Problems (1) Leg abscess Code(s): L02.419 - CUTANEOUS ABSCESS OF LIMB, UNSPECIFIED (2) HTN (hypertension) Code(s): I10 - ESSENTIAL (PRIMARY) HYPERTENSION Qualifiers: Hypertension type: unspecified Qualified Code(s): I10 - Essential (primary ) hypertension (3) Anemia Code(s): D64.9 - ANEMIA, UNSPECIFIED (5) Cardiac arrest Code(s): I46.9 - CARDIAC ARREST, CAUSE UNSPECIFIED (6) Ulcer of right leg Code(s): L97.919 - NON-PRS CHRONIC ULC UNSP PRT OF R LOW LEG W UNSP SEVERITY (7) Chronic GERD Code(s): K21.9 - GASTRO-ESOPHAGEAL REFLUX DISEASE WITHOUT ESOPHAGITIS (8) Diabetes mellitus, insulin dependent (IDDM), uncontrolled Code(s): E10.65 - TYPE 1 DIABETES MELLITUS WITH HYPERGLYCEMIA (9) Diabetic foot ulcer Code(s): E11.621 - TYPE 2 DIABETES MELLITUS WITH FOOT ULCER; L97.509 - NON- PRESSURE CHRONIC ULCER OTH PRT UNSP FOOT W UNSP SEVERITY (10) ESRD (end stage renal disease) on dialysis Code(s): N18.6 - END STAGE RENAL DISEASE; Z99.2 - DEPENDENCE ON RENAL DIALYSIS Assessment/Plan 27 y.o. female with PMH of ESRD on HD (M/W/F) last on wednesday, HTN, DVT/PE, PVD, Rt foot/leg venous stasis ulcers, CHF, b/l LE edema, Cardiac arrest presenting with RLE fluctuant lesions with purulent drainage, warmth, erythema along with leukocytosis RLE Multiloculated Abscess s/p I+D POD#0 Leukocytosis ESRD on HD Hx of DVT/PE Hx of Cardiac Arrest CHF PVD RLE/foot chronic ulcers with venous stasis changes -- continue Zosyn -- dose Vancomycin to be give post HD, monitor levels --leukocytosis resolved, pt afebrile -- continue wound care -- needs glycemic control
--- NOTE | 2017-12-10 15:12 | PN ---
Progress Note (short form) - Note Progress Note: 27yo F s/p RLE I&D and washout. Pt states that she is feeling well. Denies n/v , fever, chills. Last Vital Signs Temp Pulse Resp BP Pulse Ox 97.4 F L 94 H 18 137/71 98 12/10/17 14:40 12/10/17 14:45 12/10/17 14:45 12/10/17 14:45 12/09/17 21:00 CBC, BMP 12/10/17 11:13 PE: Gen: A&O x3 Resp: breathing comfortably Ext: RLE dressing changed at bedside. About 100ml of serou-purulent discharge was drained from the wound. Packing replaced and clean dressing placed. Problem List - Problems (1) Leg abscess Assessment/Plan: Plan -Dressing change with packing change tomorrow -continue abx as per ID -will continue to follow. Code(s): L02.419 - CUTANEOUS ABSCESS OF LIMB, UNSPECIFIED
[2017-12-10] MEDS ORDERED: EPOETIN ALFA 20,000 UNIT/1 ML VIAL IVPUSH ONE (15:15)
[2017-12-10] MEDS ORDERED: SODIUM CHLORIDE 250 ML IV PRN (15:21)
[2017-12-10 16:16] LABS: ANION GAP 14 MMOL/L (8-16); BLOOD UREA NITROGEN 74 mg/dL (7-18); CALCIUM 7.9 mg/dL (8.5-10.1); CHLORIDE 94 mmol/L (98-107); CO2 24 mmol/L (21-32); CREATININE 6.3 mg/dL (0.55-1.02); PHOSPHOROUS 8.5 mg/dL (2.5-4.9); POTASSIUM 5.3 mmol/L (3.5-5.1); SODIUM 132 mmol/L (136-145)
[2017-12-10] MEDS ORDERED: INSULIN SLIDING SCALE (NOVOLOG) 1 VIAL SQ SCH (16:30)
[2017-12-10 16:32] LABS: GLUCOSE,RANDOM 467 mg/dL (74-106)
[2017-12-10] MEDS ORDERED: INSULIN (NOVOLOG) ASPART 100 UNITS/ML 10ML VIAL SQ ONE (18:45)
[2017-12-11] MEDS ORDERED: DEXTROSE 5%-WATER - 50 ML IVPB ONE ×3 (00:21→18:46)
[2017-12-11] MEDS ORDERED: PIPERACILLIN/TAZOBACTAM 2.25 GM VIAL IVPB ONE ×3 (00:21→18:46)
[2017-12-11] MEDS: oxyCODONE HCL 5 MG TABLET PO PRN ×4 (00:25→22:54)
[2017-12-11] MEDS: PIPERACILLIN/TAZOB 2.25 GM 2.25 GM in DEXTROSE 5%-WATER - 50 ML IVPB SCH ×3 (02:32→18:49)
[2017-12-11] MEDS: cloNIDine HCL 0.1 MG TABLET PO SCH ×3 (06:01→22:43)
[2017-12-11] MEDS: hydrALAZINE HCL 50 MG TABLET (FP) PO SCH ×3 (06:02→22:42)
[2017-12-11] MEDS: INSULIN SLIDING SCALE (NOVOLOG) 1 VIAL SQ SCH ×4 (06:03→22:51)
[2017-12-11] MEDS ORDERED: INSULIN (LEVEMIR) 100 UNITS/ML UNITS SQ SCH (07:00)
[2017-12-11] MEDS: ALBUTEROL SO4 0.083% IH SOL 2.5 MG/3 ML VIAL.NEB. NEB SCH ×4 (07:39→21:10)
[2017-12-11 07:53] LABS: HEMATOCRIT 25.9 % (32.4-45.2); HEMOGLOBIN 7.9 GM/dL (10.7-15.3); MCH 26.1 pg (25.7-33.7); MCHC 30.7 g/dl (32.0-36.0); MEAN CELL VOLUME 84.9 fl (80-96); MEAN PLT VOLUME 8.7 fl (7.5-11.1); PLATELET COUNT 488 K/MM3 (134-434); RBC 3.05 M/mm3 (3.60-5.2); RDW 17.1 % (11.6-15.6)
[2017-12-11 08:40] LABS: ANION GAP 13 MMOL/L (8-16); BLOOD UREA NITROGEN 42 mg/dL (7-18); CALCIUM 8.5 mg/dL (8.5-10.1); CHLORIDE 92 mmol/L (98-107); CO2 27 mmol/L (21-32); CREATININE 4.5 mg/dL (0.55-1.02); POTASSIUM 4.6 mmol/L (3.5-5.1); SODIUM 132 mmol/L (136-145)
[2017-12-11 09:00] LABS: GLUCOSE,RANDOM 497 mg/dL (74-106)
[2017-12-11] MEDS: LABETALOL HCL 200 MG TABLET (FP) PO SCH ×2 (10:30→22:43)
[2017-12-11] MEDS: GABAPENTIN 300 MG CAPSULE (FP) PO SCH ×2 (10:31→22:43)
[2017-12-11] MEDS: LOSARTAN POTASSIUM 50 MG TABLET (FP) PO SCH (10:31)
[2017-12-11] MEDS: HEPARIN NA (PORCINE) 5,000 UNITS/ML 1ML VIAL SQ SCH ×2 (10:31→22:47)
--- NOTE | 2017-12-11 13:09 | PN ---
Progress Note, Physician - Current Medication List Current Medications: Active Medications Albuterol Sulfate (Ventolin 0.083% Nebulizer Soln -) 1 amp NEB RQID [facility] Last Admin: 12/11/17 11:23 Dose: 1 amp Clonidine (Catapres -) 0.3 mg PO TID [facility] Last Admin: 12/11/17 06:01 Dose: 0.3 mg Gabapentin (Neurontin -) 300 mg PO BID [facility] Last Admin: 12/11/17 10:31 Dose: 300 mg Heparin Sodium (Porcine) (Heparin -) 5,000 unit SQ BID [facility] Last Admin: 12/11/17 10:31 Dose: Not Given Hydralazine HCl (Apresoline -) 100 mg PO TID [facility] Last Admin: 12/11/17 06:02 Dose: Not Given Piperacillin Sod/Tazobactam (Sod 2.25 gm/ Dextrose) 50 mls @ 100 mls/hr IVPB Q8H-IV [facility]; Protocol Last Admin: 12/11/17 10:32 Dose: 100 mls/hr Insulin Aspart (Novolog Vial Sliding Scale -) 1 vial SQ ACHS [facility]; Protocol Last Admin: 12/11/17 12:26 Dose: 10 units Insulin Detemir (Levemir Vial) 20 units SQ AM [facility] Last Admin: 12/11/17 06:03 Dose: 20 units Labetalol HCl (Normodyne -) 400 mg PO BID [facility] Last Admin: 12/11/17 10:30 Dose: 400 mg Losartan Potassium (Cozaar -) 100 mg PO DAILY [facility] Last Admin: 12/11/17 10:31 Dose: 100 mg Oxycodone HCl (Roxicodone -) 5 mg PO Q4H PRN PRN Reason: PAIN LEVEL 1-5 Last Admin: 12/11/17 10:31 Dose: 5 mg - Objective Vital Signs: Vital Signs Temperature 98.4 F 12/11/17 10:00 Pulse Rate 97 H 12/11/17 10:00 Respiratory Rate 16 12/11/17 10:00 Blood Pressure 151/99 12/11/17 10:00 O2 Sat by Pulse Oximetry (%) 97 12/10/17 21:00 Cardiovascular: Yes: S1, S2 Respiratory: Yes: Regular, CTA Bilaterally Gastrointestinal: Yes: Normal Bowel Sounds, Soft Wound/Incision: Yes: Dressing Dry and Intact Labs: CBC, BMP 12/11/17 07:00 12/11/17 07:00 Problem List - Problems (1) Leg abscess Assessment/Plan: -Tib/Fib xray reviewed -Duplex LE- neg DVT -Vancomycin given in ED, will continue renal dosing (HD) will defer to ID - ID consult - Vascular consult Operative Date: 12/09/17 Pre-Operative Diagnosis: Right lower extremity abscess. Operation: Abscess drainage (multi-loculated) right leg. Findings: Pus -- cultures sent Post-Operative Diagnosis: Same as Pre-op Surgeon: Tre Carr Code(s): L02.419 - CUTANEOUS ABSCESS OF LIMB, UNSPECIFIED (2) HTN (hypertension) Assessment/Plan: -Monitor on meds Vital Signs Temp 98.2 F 12/08/17 04:32 Pulse 82 12/08/17 04:32 Resp 18 12/08/17 04:32 BP 160/90 12/08/17 04:32 Pulse Ox 98 12/08/17 04:32 Intake & Output 12/07/17 12/07/17 12/08/17 11:59 23:59 11:59 Weight 135 lb Other: Height 5 ft 6 in Body Mass Index (BMI) 21.7 Weight Measurement Method Est/Stated by Patient Code(s): I10 - ESSENTIAL (PRIMARY) HYPERTENSION Qualifiers: Hypertension type: unspecified Qualified Code(s): I10 - Essential (primary ) hypertension (3) DKA (diabetic ketoacidoses) Assessment/Plan: -Repeat Acetone negative -Endo Code(s): E13.10 - OTH DIABETES MELLITUS WITH KETOACIDOSIS WITHOUT COMA Qualifiers: Diabetes mellitus type: type 1 Diabetes mellitus complication detail: with coma Qualified Code(s): E10.11 - Type 1 diabetes mellitus with ketoacidosis with coma (4) Diabetes mellitus, insulin dependent (IDDM), uncontrolled Assessment/Plan: Appreciate Endocrinology consult- uncontrolled DM [id number] increase levemir to 20 bid Code(s): E10.65 - TYPE 1 DIABETES MELLITUS WITH HYPERGLYCEMIA (5) ESRD (end stage renal disease) on dialysis Assessment/Plan: -Renal consult Code(s): N18.6 - END STAGE RENAL DISEASE; Z99.2 - DEPENDENCE ON RENAL DIALYSIS (6) Pneumonia Assessment/Plan: Chest xray- reviewed ? R infiltrate Code(s): J18.9 - PNEUMONIA, UNSPECIFIED ORGANISM
--- NOTE | 2017-12-11 14:25 | PN ---
Progress Note, Physician Chief Complaint: The patient seen in her room. Sitting by her bed. S/P I/D of thigh abscess. blood glucose running high. Possibly related to the infection. Refuses to get another dialysis today. History of Present Illness: 27 year old AA woman well known to our service with ESRD on HD, Fluid overload, Uncontrolled DM, Hypertension, Chronic LE edmea who presented from wound care clinic with LE wounds and edema. #LE Abcess #ESRD on HD. Last dialysis yesterday. #CKD related Anemia #DM #Hypertension The patient has some degree of fluid overload, but she refuses to get extra dialysis today. Wants dialysis only on Wednesday. Will continue antibiotics. Thank you. Will follow with you. - Current Medication List Current Medications: Active Medications Albuterol Sulfate (Ventolin 0.083% Nebulizer Soln -) 1 amp NEB RQID [facility] Last Admin: 12/11/17 11:23 Dose: 1 amp Clonidine (Catapres -) 0.3 mg PO TID [facility] Last Admin: 12/11/17 06:01 Dose: 0.3 mg Gabapentin (Neurontin -) 300 mg PO BID [facility] Last Admin: 12/11/17 10:31 Dose: 300 mg Heparin Sodium (Porcine) (Heparin -) 5,000 unit SQ BID [facility] Last Admin: 12/11/17 10:31 Dose: Not Given Hydralazine HCl (Apresoline -) 100 mg PO TID [facility] Last Admin: 12/11/17 06:02 Dose: Not Given Piperacillin Sod/Tazobactam (Sod 2.25 gm/ Dextrose) 50 mls @ 100 mls/hr IVPB Q8H-IV [facility]; Protocol Last Admin: 12/11/17 10:32 Dose: 100 mls/hr Insulin Aspart (Novolog Vial Sliding Scale -) 1 vial SQ ACHS [facility]; Protocol Last Admin: 12/11/17 12:26 Dose: 10 units Insulin Detemir (Levemir Vial) 20 units SQ BIDI [facility] Labetalol HCl (Normodyne -) 400 mg PO BID [facility] Last Admin: 12/11/17 10:30 Dose: 400 mg Losartan Potassium (Cozaar -) 100 mg PO DAILY [facility] Last Admin: 12/11/17 10:31 Dose: 100 mg Oxycodone HCl (Roxicodone -) 5 mg PO Q4H PRN PRN Reason: PAIN LEVEL 1-5 Last Admin: 12/11/17 10:31 Dose: 5 mg - Objective Vital Signs: Vital Signs Temperature 98.4 F 12/11/17 10:00 Pulse Rate 97 H 12/11/17 10:00 Respiratory Rate 16 12/11/17 10:00 Blood Pressure 151/99 12/11/17 10:00 O2 Sat by Pulse Oximetry (%) 97 12/10/17 21:00 Labs: CBC, BMP 12/11/17 07:00 12/11/17 07:00
--- NOTE | 2017-12-11 15:59 | PN ---
Progress Note, Physician History of Present Illness: Pt feels well. Afebrile, pain controlled. No new complaints. - Current Medication List Current Medications: Active Medications Albuterol Sulfate (Ventolin 0.083% Nebulizer Soln -) 1 amp NEB RQID [facility] Last Admin: 12/11/17 15:50 Dose: 1 amp Clonidine (Catapres -) 0.3 mg PO TID [facility] Last Admin: 12/11/17 06:01 Dose: 0.3 mg Gabapentin (Neurontin -) 300 mg PO BID [facility] Last Admin: 12/11/17 10:31 Dose: 300 mg Heparin Sodium (Porcine) (Heparin -) 5,000 unit SQ BID [facility] Last Admin: 12/11/17 10:31 Dose: Not Given Hydralazine HCl (Apresoline -) 100 mg PO TID [facility] Last Admin: 12/11/17 06:02 Dose: Not Given Piperacillin Sod/Tazobactam (Sod 2.25 gm/ Dextrose) 50 mls @ 100 mls/hr IVPB Q8H-IV [facility]; Protocol Last Admin: 12/11/17 10:32 Dose: 100 mls/hr Insulin Aspart (Novolog Vial Sliding Scale -) 1 vial SQ ACHS [facility]; Protocol Last Admin: 12/11/17 12:26 Dose: 10 units Insulin Detemir (Levemir Vial) 20 units SQ BIDI [facility] Labetalol HCl (Normodyne -) 400 mg PO BID [facility] Last Admin: 12/11/17 10:30 Dose: 400 mg Losartan Potassium (Cozaar -) 100 mg PO DAILY [facility] Last Admin: 12/11/17 10:31 Dose: 100 mg Oxycodone HCl (Roxicodone -) 5 mg PO Q4H PRN PRN Reason: PAIN LEVEL 1-5 Last Admin: 12/11/17 10:31 Dose: 5 mg - Objective Vital Signs: Vital Signs Temperature 97.0 F L 12/11/17 15:04 Pulse Rate 89 12/11/17 15:04 Respiratory Rate 18 12/11/17 15:04 Blood Pressure 148/89 12/11/17 15:04 O2 Sat by Pulse Oximetry (%) 97 12/10/17 21:00 Constitutional: Yes: No Distress, Calm Cardiovascular: Yes: Regular Rate and Rhythm Respiratory: Yes: Regular Gastrointestinal: Yes: Normal Bowel Sounds, Soft Wound/Incision: Yes: Other (RLE dressing with serosanguinous drainage) Neurological: Yes: Alert, Oriented Labs: CBC, BMP 12/11/17 07:00 12/11/17 07:00 Microbiology 12/09/17 15:00 Abscess Gram Stain - Final 12/09/17 15:00 Abscess Body Fluid Culture - Preliminary NO AEROBIC GROWTH, 24 HRS 12/08/17 16:10 Blood - Peripheral Venous Blood Culture - Preliminary NO GROWTH OBTAINED AFTER 48 HOURS, INCUBATION TO CONTINUE FOR 3 DAYS. 12/08/17 16:00 Blood - Peripheral Venous Blood Culture - Preliminary NO GROWTH OBTAINED AFTER 48 HOURS, INCUBATION TO CONTINUE FOR 3 DAYS. 12/07/17 17:30 Abscess Gram Stain - Final 12/07/17 17:30 Abscess Wound Culture - Final Serratia Marcescens Problem List - Problems (1) Leg abscess Code(s): L02.419 - CUTANEOUS ABSCESS OF LIMB, UNSPECIFIED (2) HTN (hypertension) Code(s): I10 - ESSENTIAL (PRIMARY) HYPERTENSION Qualifiers: Hypertension type: unspecified Qualified Code(s): I10 - Essential (primary ) hypertension (3) Anemia Code(s): D64.9 - ANEMIA, UNSPECIFIED (5) Cardiac arrest Code(s): I46.9 - CARDIAC ARREST, CAUSE UNSPECIFIED (6) Ulcer of right leg Code(s): L97.919 - NON-PRS CHRONIC ULC UNSP PRT OF R LOW LEG W UNSP SEVERITY (7) Chronic GERD Code(s): K21.9 - GASTRO-ESOPHAGEAL REFLUX DISEASE WITHOUT ESOPHAGITIS (8) Diabetes mellitus, insulin dependent (IDDM), uncontrolled Code(s): E10.65 - TYPE 1 DIABETES MELLITUS WITH HYPERGLYCEMIA (9) Diabetic foot ulcer Code(s): E11.621 - TYPE 2 DIABETES MELLITUS WITH FOOT ULCER; L97.509 - NON- PRESSURE CHRONIC ULCER OTH PRT UNSP FOOT W UNSP SEVERITY (10) ESRD (end stage renal disease) on dialysis Code(s): N18.6 - END STAGE RENAL DISEASE; Z99.2 - DEPENDENCE ON RENAL DIALYSIS Assessment/Plan 27 y.o. female with PMH of ESRD on HD (M/W/F) last on wednesday, HTN, DVT/PE, PVD, Rt foot/leg venous stasis ulcers, CHF, b/l LE edema, Cardiac arrest presenting with RLE fluctuant lesions with purulent drainage, warmth, erythema along with leukocytosis RLE Multiloculated Abscess s/p I+D POD#0 Leukocytosis ESRD on HD Hx of DVT/PE Hx of Cardiac Arrest CHF PVD RLE/foot chronic ulcers with venous stasis changes -- continue Zosyn -- f/u final intra-op cultures -- leukocytosis resolved, pt afebrile -- continue wound care -- needs glycemic control
[2017-12-11] MEDS ORDERED: oxyCODONE HCL 5 MG TABLET PO PRN (16:19)
[2017-12-11] MEDS: INSULIN (LEVEMIR) 100 UNITS/ML UNITS SQ SCH ×2 (16:26→16:33)
[2017-12-11] MEDS ORDERED: ONDANSETRON 4 MG/2 ML VIAL IVPB ONE (19:52)
[2017-12-12] MEDS ORDERED: PT OWN MED DRAWER 7, Y5N ONE (01:53)
[2017-12-12] MEDS ORDERED: DEXTROSE 5%-WATER - 50 ML IVPB ONE ×4 (02:30→23:40)
[2017-12-12] MEDS ORDERED: PIPERACILLIN/TAZOBACTAM 2.25 GM VIAL IVPB ONE ×4 (02:30→23:40)
[2017-12-12] MEDS: PIPERACILLIN/TAZOB 2.25 GM 2.25 GM in DEXTROSE 5%-WATER - 50 ML IVPB SCH ×3 (02:32→17:44)
[2017-12-12] MEDS: cloNIDine HCL 0.1 MG TABLET PO SCH ×3 (06:57→21:24)
[2017-12-12] MEDS: hydrALAZINE HCL 50 MG TABLET (FP) PO SCH ×3 (06:57→21:28)
[2017-12-12] MEDS: INSULIN SLIDING SCALE (NOVOLOG) 1 VIAL SQ SCH ×4 (06:58→21:28)
[2017-12-12] MEDS: INSULIN (LEVEMIR) 100 UNITS/ML UNITS SQ SCH ×2 (06:59→17:44)
[2017-12-12] MEDS ORDERED: INSULIN (NOVOLOG) ASPART 100 UNITS/ML 10ML VIAL ONE ×2 (07:06→12:00)
[2017-12-12] MEDS ORDERED: INSULIN (LEVEMIR) 100 UNITS/ML UNITS SQ ONE (07:07)
[2017-12-12] MEDS: ALBUTEROL SO4 0.083% IH SOL 2.5 MG/3 ML VIAL.NEB. NEB SCH ×4 (07:35→20:26)
[2017-12-12] MEDS: oxyCODONE HCL 5 MG TABLET PO PRN ×3 (08:28→21:24)
[2017-12-12] MEDS: GABAPENTIN 300 MG CAPSULE (FP) PO SCH ×2 (09:28→21:31)
[2017-12-12] MEDS: LOSARTAN POTASSIUM 50 MG TABLET (FP) PO SCH (09:29)
[2017-12-12] MEDS: HEPARIN NA (PORCINE) 5,000 UNITS/ML 1ML VIAL SQ SCH ×2 (09:29→21:28)
[2017-12-12] MEDS: LABETALOL HCL 200 MG TABLET (FP) PO SCH ×2 (09:29→21:28)
--- NOTE | 2017-12-12 14:00 | PN ---
Progress Note, Physician Chief Complaint: The patient seen in her room. Sitting by her bed. Reports no new complaints. S/P I/D of thigh abscess. blood glucose running high. Possibly related to the infection. History of Present Illness: 27 year old AA woman well known to our service with ESRD on HD, Fluid overload, Uncontrolled DM, Hypertension, Chronic LE edmea who presented from wound care clinic with LE wounds and edema. #LE Abcess #ESRD on HD. Last dialysis yesterday. #CKD related Anemia #DM #Hypertension - Current Medication List Current Medications: Active Medications Albuterol Sulfate (Ventolin 0.083% Nebulizer Soln -) 1 amp NEB RQID [facility] Last Admin: 12/12/17 07:35 Dose: 1 amp Clonidine (Catapres -) 0.3 mg PO TID [facility] Last Admin: 12/12/17 06:57 Dose: 0.3 mg Gabapentin (Neurontin -) 300 mg PO BID [facility] Last Admin: 12/12/17 09:28 Dose: 300 mg Heparin Sodium (Porcine) (Heparin -) 5,000 unit SQ BID [facility] Last Admin: 12/12/17 09:29 Dose: Not Given Hydralazine HCl (Apresoline -) 100 mg PO TID [facility] Last Admin: 12/12/17 06:57 Dose: 100 mg Piperacillin Sod/Tazobactam (Sod 2.25 gm/ Dextrose) 50 mls @ 100 mls/hr IVPB Q8H-IV [facility]; Protocol Last Admin: 12/12/17 09:29 Dose: 100 mls/hr Insulin Aspart (Novolog Vial Sliding Scale -) 1 vial SQ ACHS [facility]; Protocol Last Admin: 12/12/17 06:58 Dose: 10 units Insulin Detemir (Levemir Vial) 20 units SQ BIDI [facility] Last Admin: 12/12/17 06:59 Dose: 20 units Labetalol HCl (Normodyne -) 400 mg PO BID [facility] Last Admin: 12/12/17 09:29 Dose: 400 mg Losartan Potassium (Cozaar -) 100 mg PO DAILY [facility] Last Admin: 12/12/17 09:29 Dose: 100 mg Oxycodone HCl (Roxicodone -) 10 mg PO Q6H PRN PRN Reason: PAIN LEVEL 1-5 Last Admin: 12/12/17 08:28 Dose: 10 mg - Objective Vital Signs: Vital Signs Temperature 98.5 F 12/12/17 06:00 Pulse Rate 79 12/12/17 06:00 Respiratory Rate 18 12/12/17 06:00 Blood Pressure 138/69 12/12/17 06:00 O2 Sat by Pulse Oximetry (%) 97 12/11/17 21:00 Constitutional: Yes: Well Nourished, Calm HENT: Yes: Normocephalic Cardiovascular: Yes: Regular Rate and Rhythm, S1, S2 Gastrointestinal: Yes: Normal Bowel Sounds, Soft Genitourinary: No: CVA Tenderness - Left, CVA Tenderness - Right Edema: Yes Edema: LLE: 2+, RLE: 2+ Wound/Incision: Yes: Dressing Dry and Intact Neurological: Yes: Alert, Oriented Psychiatric: Yes: Alert, Oriented Labs: CBC, BMP 12/11/17 07:00 12/11/17 07:00 Assessment/Plan 27 year old AA woman well known to our service with ESRD on HD, Fluid overload, Uncontrolled DM, Hypertension, Chronic LE edmea who presented from wound care clinic with LE wounds and edema. #LE Abcess , s/p I and D #ESRD on HD. Last dialysis yesterday. #CKD related Anemia #DM #Hypertension Next HD tomorrow. Orders written. Susie Peter MD
--- NOTE | 2017-12-12 15:17 | PN ---
Progress Note, Physician - Current Medication List Current Medications: Active Medications Albuterol Sulfate (Ventolin 0.083% Nebulizer Soln -) 1 amp NEB RQID [facility] Last Admin: 12/12/17 11:45 Dose: Not Given Clonidine (Catapres -) 0.3 mg PO TID [facility] Last Admin: 12/12/17 14:08 Dose: 0.3 mg Epoetin Abiel (Procrit -) 20,000 unit SQ ONCE ONE Stop: 12/13/17 14:03 Gabapentin (Neurontin -) 300 mg PO BID [facility] Last Admin: 12/12/17 09:28 Dose: 300 mg Heparin Sodium (Porcine) (Heparin -) 5,000 unit SQ BID [facility] Last Admin: 12/12/17 09:29 Dose: Not Given Hydralazine HCl (Apresoline -) 100 mg PO TID [facility] Last Admin: 12/12/17 14:02 Dose: Not Given Piperacillin Sod/Tazobactam (Sod 2.25 gm/ Dextrose) 50 mls @ 100 mls/hr IVPB Q8H-IV [facility]; Protocol Last Admin: 12/12/17 09:29 Dose: 100 mls/hr Insulin Aspart (Novolog Vial Sliding Scale -) 1 vial SQ ACHS [facility]; Protocol Last Admin: 12/12/17 14:02 Dose: 9 units Insulin Detemir (Levemir Vial) 20 units SQ BIDI [facility] Last Admin: 12/12/17 06:59 Dose: 20 units Labetalol HCl (Normodyne -) 400 mg PO BID [facility] Last Admin: 12/12/17 09:29 Dose: 400 mg Losartan Potassium (Cozaar -) 100 mg PO DAILY [facility] Last Admin: 12/12/17 09:29 Dose: 100 mg Oxycodone HCl (Roxicodone -) 10 mg PO Q6H PRN PRN Reason: PAIN LEVEL 1-5 Last Admin: 12/12/17 14:08 Dose: 10 mg - Objective Vital Signs: Vital Signs Temperature 98.5 F 12/12/17 06:00 Pulse Rate 79 12/12/17 06:00 Respiratory Rate 18 12/12/17 06:00 Blood Pressure 138/69 12/12/17 06:00 O2 Sat by Pulse Oximetry (%) 97 12/11/17 21:00 Cardiovascular: Yes: S1, S2 Respiratory: Yes: Regular, CTA Bilaterally Gastrointestinal: Yes: Normal Bowel Sounds, Soft Musculoskeletal: Yes: Other (SWELLING OVER THE RT CLAVICLE) Labs: CBC, BMP 12/11/17 07:00 12/11/17 07:00 Problem List - Problems (1) Leg abscess Assessment/Plan: -Tib/Fib xray reviewed -Duplex LE- neg DVT -Vancomycin given in ED, will continue renal dosing (HD) will defer to ID - ID consult - Vascular consult Operative Date: 12/09/17 Pre-Operative Diagnosis: Right lower extremity abscess. Operation: Abscess drainage (multi-loculated) right leg. Findings: Pus -- cultures sent Post-Operative Diagnosis: Same as Pre-op Surgeon: Tre Carr Code(s): L02.419 - CUTANEOUS ABSCESS OF LIMB, UNSPECIFIED (2) HTN (hypertension) Assessment/Plan: -Monitor on meds Vital Signs Temp 98.2 F 12/08/17 04:32 Pulse 82 12/08/17 04:32 Resp 18 12/08/17 04:32 BP 160/90 12/08/17 04:32 Pulse Ox 98 12/08/17 04:32 Intake & Output 12/07/17 12/07/17 12/08/17 11:59 23:59 11:59 Weight 135 lb Other: Height 5 ft 6 in Body Mass Index (BMI) 21.7 Weight Measurement Method Est/Stated by Patient Code(s): I10 - ESSENTIAL (PRIMARY) HYPERTENSION Qualifiers: Hypertension type: unspecified Qualified Code(s): I10 - Essential (primary ) hypertension (3) DKA (diabetic ketoacidoses) Assessment/Plan: -Repeat Acetone negative -Endo Code(s): E13.10 - OTH DIABETES MELLITUS WITH KETOACIDOSIS WITHOUT COMA Qualifiers: Diabetes mellitus type: type 1 Diabetes mellitus complication detail: with coma Qualified Code(s): E10.11 - Type 1 diabetes mellitus with ketoacidosis with coma (4) Diabetes mellitus, insulin dependent (IDDM), uncontrolled Assessment/Plan: Appreciate Endocrinology consult- uncontrolled DM HgbA1c increase levemir to 20 bid Code(s): E10.65 - TYPE 1 DIABETES MELLITUS WITH HYPERGLYCEMIA (5) ESRD (end stage renal disease) on dialysis Assessment/Plan: -Renal consult Code(s): N18.6 - END STAGE RENAL DISEASE; Z99.2 - DEPENDENCE ON RENAL DIALYSIS (6) Pneumonia Assessment/Plan: Chest xray- reviewed ? R infiltrate---REPEAT NO INF Code(s): J18.9 - PNEUMONIA, UNSPECIFIED ORGANISM (7) Clavicular asymmetry Assessment/Plan: XRAYS ORTHO Code(s): Q74.0 - OTH CONGEN MALFORM OF UPPER LIMB(S), INC SHOULDER GIRDLE
--- NOTE | 2017-12-12 22:38 | PN ---
Progress Note, Physician Chief Complaint: sitting in bed family at bedside eating well appetite improving and likely cause higher sugars History of Present Illness: diabetes mellitus /esrd,diabetic wound infections/ sepsis,htn ashd,cad,chronic diabetic neuropathic disease - Current Medication List Current Medications: Active Medications Albuterol Sulfate (Ventolin 0.083% Nebulizer Soln -) 1 amp NEB RQID [facility] Last Admin: 12/12/17 20:26 Dose: 1 amp Clonidine (Catapres -) 0.3 mg PO TID [facility] Last Admin: 12/12/17 21:24 Dose: Not Given Epoetin Abiel (Procrit -) 20,000 unit SQ ONCE ONE Stop: 12/13/17 14:03 Gabapentin (Neurontin -) 300 mg PO BID [facility] Last Admin: 12/12/17 21:31 Dose: 300 mg Heparin Sodium (Porcine) (Heparin -) 5,000 unit SQ BID [facility] Last Admin: 12/12/17 21:28 Dose: Not Given Hydralazine HCl (Apresoline -) 100 mg PO TID [facility] Last Admin: 12/12/17 21:28 Dose: Not Given Piperacillin Sod/Tazobactam (Sod 2.25 gm/ Dextrose) 50 mls @ 100 mls/hr IVPB Q8H-IV [facility]; Protocol Last Admin: 12/12/17 17:44 Dose: 100 mls/hr Insulin Aspart (Novolog Vial Sliding Scale -) 1 vial SQ ACHS [facility]; Protocol Insulin Detemir (Levemir Vial) 22 units SQ BIDI [facility] Labetalol HCl (Normodyne -) 400 mg PO BID [facility] Last Admin: 12/12/17 21:28 Dose: Not Given Losartan Potassium (Cozaar -) 100 mg PO DAILY [facility] Last Admin: 12/12/17 09:29 Dose: 100 mg Oxycodone HCl (Roxicodone -) 10 mg PO Q6H PRN PRN Reason: PAIN LEVEL 1-5 Last Admin: 12/12/17 21:24 Dose: 10 mg - Objective Vital Signs: Vital Signs Temperature 98.1 F 12/12/17 16:59 Pulse Rate 85 12/12/17 16:59 Respiratory Rate 20 12/12/17 16:59 Blood Pressure 122/64 12/12/17 16:59 O2 Sat by Pulse Oximetry (%) 97 12/12/17 09:00 Constitutional: Yes: Well Nourished Eyes: Yes: EOM Intact HENT: Yes: Normocephalic Neck: Yes: Trachea Midline Cardiovascular: Yes: Regular Rate and Rhythm Respiratory: Yes: CTA Bilaterally Gastrointestinal: Yes: Normal Bowel Sounds ...Rectal Exam: Yes: Deferred Musculoskeletal: Yes: Joint Stiffness, Joint Swelling, Muscle Pain, Muscle Weakness Extremities: Yes: Delayed Capillary Refill Edema: Yes Integumentary: Yes: Onychomycosis, Venous Stasis Changes Wound/Incision: Yes: Draining Neurological: Yes: Alert, Oriented Labs: CBC, BMP 12/11/17 07:00 12/11/17 07:00 Problem List - Problems (1) 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 Code(s): E10.52 - TYPE 1 DIABETES W DIABETIC PERIPHERAL ANGIOPATHY W GANGRENE (2) Diabetes mellitus type 1 with peripheral artery disease Code(s): E10.51 - TYPE 1 DIABETES W DIABETIC PERIPHERAL ANGIOPATH W/O GANGRENE (3) Hyperglycemia Code(s): R73.9 - HYPERGLYCEMIA, UNSPECIFIED (4) Leg abscess Code(s): L02.419 - CUTANEOUS ABSCESS OF LIMB, UNSPECIFIED (5) HTN (hypertension) Code(s): I10 - ESSENTIAL (PRIMARY) HYPERTENSION Qualifiers: Hypertension type: unspecified Qualified Code(s): I10 - Essential (primary ) hypertension (6) Anemia Code(s): D64.9 - ANEMIA, UNSPECIFIED (7) Atelectasis of right lung Code(s): J98.11 - ATELECTASIS Assessment/Plan Current Active Problems Clavicular asymmetry (Acute) Diabetes mellitus type 1 with peripheral artery disease (Acute) Hyperglycemia (Acute) Leg abscess (Acute) 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 ( Acute) HTN (hypertension) (Chronic) Laboratory Results - last 24 hr 12/12/17 12/12/17 12/12/17 06:51 14:01 17:43 POC Glucometer 540 397 239 12/12/17 21:26 POC Glucometer 228 plan: bgm novolog insulin doses levemir 22 units bid as appetite is difficult to control with calorie restrictions outpatient cgms may provide help adjusting insulin doses if compliance improves
[2017-12-13] MEDS: PIPERACILLIN/TAZOB 2.25 GM 2.25 GM in DEXTROSE 5%-WATER - 50 ML IVPB SCH ×3 (02:36→18:42)
[2017-12-13] MEDS: oxyCODONE HCL 5 MG TABLET PO PRN ×2 (04:22→10:34)
[2017-12-13] MEDS: cloNIDine HCL 0.1 MG TABLET PO SCH ×2 (06:22→14:12)
[2017-12-13] MEDS: INSULIN SLIDING SCALE (NOVOLOG) 1 VIAL SQ SCH ×3 (06:22→18:37)
[2017-12-13] MEDS: INSULIN (LEVEMIR) 100 UNITS/ML UNITS SQ SCH ×2 (06:23→18:37)
[2017-12-13] MEDS: hydrALAZINE HCL 50 MG TABLET (FP) PO SCH ×2 (06:25→14:12)
[2017-12-13] MEDS: ALBUTEROL SO4 0.083% IH SOL 2.5 MG/3 ML VIAL.NEB. NEB SCH ×3 (07:35→16:15)
--- NOTE | 2017-12-13 09:50 | PN ---
Progress Note (short form) - Note Progress Note: 27yo F s/p RLE I&D, seen at bedside. Pt denies fever, chills, n/v. Pt states dressing was last changed on Monday 12/11. Last Vital Signs Temp Pulse Resp BP Pulse Ox 98.4 F 92 H 18 114/63 97 12/13/17 04:00 12/13/17 04:00 12/13/17 04:00 12/13/17 04:00 12/12/17 21:00 CBC, BMP 12/11/17 07:00 12/11/17 07:00 PE: Gen: A&O x3 Resp: breathing comfortably Ext: b/l pitting edeman +2. RLE shows 4cm incision over lateral distal leg with serous drainage noted (much decreased and clearer from previous), no erythema, 4cm incision on medial promiximal calf with serous drainage. Packing was changed and clean dressing placed. Problem List - Problems (1) Leg abscess Assessment/Plan: Plan -continue daily dressing changes -abx as per medicine/ID -pt to be discharged to rehab -follow up with wound care clinic as outpatient Pt discussed with Dr. Carr who agrees with plan. Code(s): L02.419 - CUTANEOUS ABSCESS OF LIMB, UNSPECIFIED
[2017-12-13] MEDS ORDERED: PIPERACILLIN/TAZOBACTAM 2.25 GM VIAL IVPB ONE (10:22)
[2017-12-13] MEDS ORDERED: DEXTROSE 5%-WATER - 50 ML IVPB ONE (10:22)
[2017-12-13] MEDS: GABAPENTIN 300 MG CAPSULE (FP) PO SCH (10:35)
[2017-12-13] MEDS: LOSARTAN POTASSIUM 50 MG TABLET (FP) PO SCH (10:35)
[2017-12-13] MEDS: LABETALOL HCL 200 MG TABLET (FP) PO SCH (10:35)
[2017-12-13] MEDS: HEPARIN NA (PORCINE) 5,000 UNITS/ML 1ML VIAL SQ SCH (10:35)
--- NOTE | 2017-12-13 11:17 | CON.ORTH ---
Consult Reason for Consultation:: right clavicle pain,swelling - Past Medical History Cardio/Vascular: Yes: CHF, Deep Vein Thrombosis, HTN, Other (thrombus in atrium , PE, DVT) Pulmonary: No: Sleep Apnea Renal/: Yes: Renal Failure, Hemodialysis ...LMP: 05/13/17 Infectious Disease: Yes: MRSA, Other Endocrine: Yes: Diabetes Mellitus (type 1 on insulin pump) Additional Medical History: DVT, PE on coumadin - Past Surgical History Past Surgical History: Yes: AV Fistula/Graft (Right arm) - Alcohol/Substance Use Hx Alcohol Use: No History of Substance Use: reports: None - Smoking History Smoking history: Never smoked Have you smoked in the past 12 months: No Aproximately how many cigarettes per day: 10 If you are a former smoker, when did you quit?: couple months ago - Social History Usual Living Arrangement: With Parent ADL: Independent Occupation: unemployed History of Recent Travel: No Home Medications - Allergies Allergies/Adverse Reactions: Allergies Allergy/AdvReac Type Severity Reaction Status Date / Time lactose AdvReac Verified 12/07/17 12:52 - Home Medications Home Medications: Ambulatory Orders cloNIDine HCL [Catapres -] 0.3 mg PO TID 06/28/17 Collagenase Clostridium Hist. [Santyl -] 1 applic TP DAILY #1 tube 10/01/17 Insulin Detemir [Levemir Flextouch] 17 unit SQ BID #1 insuln.pen 10/01/17 Insulin Lispro [Humalog Kwikpen U-100] 100 unit SQ ASDIR #10 insuln.pen oxyCODONE HCL [Roxicodone -] 10 mg PO Q6H PRN #20 tablet MDD 4 10/29/17 Oxycodone HCl 10 mg PO Q6H PRN #15 tablet MDD 4 11/12/17 Albuterol 0.083% Nebulizer No [Ventolin 0.083% Nebulizer Soln -] 1 amp NEB Q6H #10 amp 12/02/17 Nebulizer Accessories [A.i.r.s. Nebulizer] 1 each PRN #1 kit 12/02/17 Gabapentin [Neurontin -] 300 mg PO BID 12/07/17 Family Disease History - Family Disease History Family Disease History: Diabetes: Grandparent (HTN), Heart Disease: Grandparent , Other: Father (unknown), Mother (HTN) Physical Exam for Ortho Vital Signs: Vital Signs Temperature 98.4 F 12/13/17 04:00 Pulse Rate 92 H 12/13/17 04:00 Respiratory Rate 18 12/13/17 04:00 Blood Pressure 114/63 12/13/17 04:00 O2 Sat by Pulse Oximetry (%) 97 12/12/17 21:00 Labs: CBC, BMP 12/11/17 07:00 12/11/17 07:00 - Upper Extremity Shoulder: Yes: Right, Assymetrical, Deformity, Pain, Swelling, Tenderness, Other (nvi) Imaging - Results X-ray: Report Reviewed, Image Reviewed Assessment/Plan 27 y/o woman with PMHx of ESRD on HD (M,W,F LUE AVF), IDDM, HTN, PVD, Atrial thrombus, Cardiac Arrest, Pneumonia, Right Foot ulcer. Pt had been admitted for right leg abscess which was I & D'd. Pt c/o pain and swelling over the right SC joint for the past 2-3 weeks. Denies any injury/trauma. a/p right SC joint infection vs renal osteodystrophy CT scan ordered ROM exercises pain control will advise after CT d/w Dr. Garcia
[2017-12-13 14:27] VITALS: TEMP 98.7
[2017-12-13] MEDS ORDERED: EPOETIN ALFA 20,000 UNIT/1 ML VIAL IVPUSH ONE (14:30)
[2017-12-13 14:43] LABS: HEMATOCRIT 23.5 % (32.4-45.2); HEMOGLOBIN 7.5 GM/dL (10.7-15.3); MCH 26.5 pg (25.7-33.7); MCHC 31.7 g/dl (32.0-36.0); MEAN CELL VOLUME 83.6 fl (80-96); MEAN PLT VOLUME 8.8 fl (7.5-11.1); PLATELET COUNT 487 K/MM3 (134-434); RBC 2.82 M/mm3 (3.60-5.2); WHITE BLOOD COUNT 11.7 K/mm3 (4.0-10.0)
[2017-12-13 15:31] LABS: ANION GAP 14 MMOL/L (8-16); BLOOD UREA NITROGEN 90 mg/dL (7-18); CALCIUM 7.7 mg/dL (8.5-10.1); CHLORIDE 97 mmol/L (98-107); CO2 22 mmol/L (21-32); GLUCOSE,RANDOM 279 mg/dL (74-106); POTASSIUM 5.7 mmol/L (3.5-5.1); SODIUM 133 mmol/L (136-145)
[2017-12-13 15:41] LABS: CREATININE 7.9 mg/dL (0.55-1.02)
--- NOTE | 2017-12-13 15:41 | PN ---
Progress Note, Physician History of Present Illness: Events noted. Pt is afebrile. Currently in HD. Has no specific complaints. Evaluated by Orthopedics for SC mass, imaging results noted. - Current Medication List Current Medications: Active Medications Albuterol Sulfate (Ventolin 0.083% Nebulizer Soln -) 1 amp NEB RQID [facility] Last Admin: 12/13/17 11:25 Dose: Not Given Clonidine (Catapres -) 0.3 mg PO TID [facility] Last Admin: 12/13/17 14:12 Dose: Not Given Gabapentin (Neurontin -) 300 mg PO BID [facility] Last Admin: 12/13/17 10:35 Dose: Not Given Heparin Sodium (Porcine) (Heparin -) 5,000 unit SQ BID [facility] Last Admin: 12/13/17 10:35 Dose: Not Given Hydralazine HCl (Apresoline -) 100 mg PO TID [facility] Last Admin: 12/13/17 14:12 Dose: Not Given Piperacillin Sod/Tazobactam (Sod 2.25 gm/ Dextrose) 50 mls @ 100 mls/hr IVPB Q8H-IV [facility]; Protocol Last Admin: 12/13/17 10:34 Dose: 100 mls/hr Insulin Aspart (Novolog Vial Sliding Scale -) 1 vial SQ ACHS [facility]; Protocol Last Admin: 12/13/17 12:38 Dose: Not Given Insulin Detemir (Levemir Vial) 22 units SQ BIDI [facility] Last Admin: 12/13/17 06:23 Dose: 22 units Labetalol HCl (Normodyne -) 400 mg PO BID [facility] Last Admin: 12/13/17 10:35 Dose: Not Given Losartan Potassium (Cozaar -) 100 mg PO DAILY [facility] Last Admin: 12/13/17 10:35 Dose: Not Given Oxycodone HCl (Roxicodone -) 10 mg PO Q6H PRN PRN Reason: PAIN LEVEL 1-5 Last Admin: 12/13/17 10:34 Dose: 10 mg - Objective Vital Signs: Vital Signs Temperature 98.7 F 12/13/17 13:55 Pulse Rate 93 H 12/13/17 15:00 Respiratory Rate 18 12/13/17 15:00 Blood Pressure 120/63 12/13/17 15:00 O2 Sat by Pulse Oximetry (%) 98 12/13/17 10:00 Constitutional: Yes: No Distress, Calm Cardiovascular: Yes: Regular Rate and Rhythm Respiratory: Yes: Regular Gastrointestinal: Yes: Normal Bowel Sounds, Soft Genitourinary: Yes: Anuria Musculoskeletal: Yes: Joint Swelling (SC mass) Edema: Yes Edema: LLE: 1+, RLE: 3+ Integumentary: Yes: WNL Wound/Incision: Yes: Dressing Dry and Intact (seen by surgery/pmd - reported as improving, no malodorous drainage) Neurological: Yes: Alert Labs: CBC, BMP 12/13/17 14:00 Microbiology 12/08/17 16:10 Blood - Peripheral Venous Blood Culture - Preliminary NO GROWTH OBTAINED AFTER 96 HOURS, INCUBATION TO CONTINUE FOR 1 DAYS. 12/08/17 16:00 Blood - Peripheral Venous Blood Culture - Preliminary NO GROWTH OBTAINED AFTER 96 HOURS, INCUBATION TO CONTINUE FOR 1 DAYS. 12/09/17 15:00 Abscess Gram Stain - Final 12/09/17 15:00 Abscess Body Fluid Culture - Final NO GROWTH OF AEROBIC ORGANISMS AFTER 48 HOURS INCUBATION 12/09/17 15:00 Abscess Anaerobic Culture - Final NO ANAEROBES WERE ISOLATED 12/07/17 17:30 Abscess Gram Stain - Final 12/07/17 17:30 Abscess Wound Culture - Final Serratia Marcescens - ....Imaging Cat Scan: Report Reviewed (SCM destructive process with overlying mass) Problem List - Problems (1) Leg abscess Code(s): L02.419 - CUTANEOUS ABSCESS OF LIMB, UNSPECIFIED (2) HTN (hypertension) Code(s): I10 - ESSENTIAL (PRIMARY) HYPERTENSION Qualifiers: Hypertension type: unspecified Qualified Code(s): I10 - Essential (primary ) hypertension (3) Anemia Code(s): D64.9 - ANEMIA, UNSPECIFIED (5) Cardiac arrest Code(s): I46.9 - CARDIAC ARREST, CAUSE UNSPECIFIED (6) Ulcer of right leg Code(s): L97.919 - NON-PRS CHRONIC ULC UNSP PRT OF R LOW LEG W UNSP SEVERITY (7) Chronic GERD Code(s): K21.9 - GASTRO-ESOPHAGEAL REFLUX DISEASE WITHOUT ESOPHAGITIS (8) Diabetes mellitus, insulin dependent (IDDM), uncontrolled Code(s): E10.65 - TYPE 1 DIABETES MELLITUS WITH HYPERGLYCEMIA (9) Diabetic foot ulcer Code(s): E11.621 - TYPE 2 DIABETES MELLITUS WITH FOOT ULCER; L97.509 - NON- PRESSURE CHRONIC ULCER OTH PRT UNSP FOOT W UNSP SEVERITY (10) ESRD (end stage renal disease) on dialysis Code(s): N18.6 - END STAGE RENAL DISEASE; Z99.2 - DEPENDENCE ON RENAL DIALYSIS Assessment/Plan 27 y.o. female with PMH of ESRD on HD (M/W/F) last on wednesday, HTN, DVT/PE, PVD, Rt foot/leg venous stasis ulcers, CHF, b/l LE edema, Cardiac arrest presenting with RLE fluctuant lesions with purulent drainage, warmth, erythema along with leukocytosis RLE Multiloculated Abscess s/p I+D Rt SC mass r/o underlying OM ESRD on HD Hx of DVT/PE Hx of Cardiac Arrest CHF PVD RLE/foot chronic ulcers with venous stasis changes -- RLE wound healing, final cultures noted, continue wound care -- switch antibiotics to Levaquin 500 mg po Q2days x 5 doses, Flagyl 500 mg po TID x 10 days -- discussed with PMD, pt is to be transferred to rehab, will have SC biopsy/ culture this week, if determined to be osteomyelitis will initiate IV antibiotics. Results to be shared with me once available -- pt will be followed up in wound care -- continue monitor vitals
--- NOTE | 2017-12-13 16:09 | PN ---
Progress Note (short form) - Note Progress Note: Renal follow up for ESRD on HD Pt seen and examined at the bedside has some SEGURA no cp, abd pain, N/V/D for HD today Vital Signs Temperature 98.7 F 12/13/17 13:55 Pulse Rate 99 H 12/13/17 16:00 Respiratory Rate 18 12/13/17 16:00 Blood Pressure 147/81 12/13/17 16:00 O2 Sat by Pulse Oximetry (%) 98 12/13/17 10:00 Intake & Output 12/10/17 12/11/17 12/12/17 12/13/17 23:59 23:59 23:59 23:59 Intake Total 200 500 100 50 Output Total 0 Balance 200 500 100 50 NAD awake and alert RRR CTA soft NT/ND ++ edema in LE, legs in dressing AVF with good bruit CBC, BMP 12/13/17 14:00 12/13/17 14:00 Current Medications Albuterol Sulfate (Ventolin 0.083% Nebulizer Soln -) 1 amp NEB RQID [facility] Last Admin: 12/13/17 11:25 Dose: Not Given Clonidine (Catapres -) 0.3 mg PO TID [facility] Last Admin: 12/13/17 14:12 Dose: Not Given Gabapentin (Neurontin -) 300 mg PO BID [facility] Last Admin: 12/13/17 10:35 Dose: Not Given Heparin Sodium (Porcine) (Heparin -) 5,000 unit SQ BID [facility] Last Admin: 12/13/17 10:35 Dose: Not Given Hydralazine HCl (Apresoline -) 100 mg PO TID [facility] Last Admin: 12/13/17 14:12 Dose: Not Given Piperacillin Sod/Tazobactam (Sod 2.25 gm/ Dextrose) 50 mls @ 100 mls/hr IVPB Q8H-IV [facility]; Protocol Last Admin: 12/13/17 10:34 Dose: 100 mls/hr Insulin Aspart (Novolog Vial Sliding Scale -) 1 vial SQ ACHS [facility]; Protocol Last Admin: 12/13/17 12:38 Dose: Not Given Insulin Detemir (Levemir Vial) 22 units SQ BIDI [facility] Last Admin: 12/13/17 06:23 Dose: 22 units Labetalol HCl (Normodyne -) 400 mg PO BID [facility] Last Admin: 12/13/17 10:35 Dose: Not Given Losartan Potassium (Cozaar -) 100 mg PO DAILY [facility] Last Admin: 12/13/17 10:35 Dose: Not Given Oxycodone HCl (Roxicodone -) 10 mg PO Q6H PRN PRN Reason: PAIN LEVEL 1-5 Last Admin: 12/13/17 10:34 Dose: 10 mg 27 year old AA woman well known to our service with ESRD on HD, Fluid overload, Uncontrolled DM, Hypertension, Chronic LE edmea who presented from wound care clinic with LE wounds and edema. #LE Abcess #ESRD on HD #CKD related Anemia #DM #Hypertension HD today with aggressive UF will plan for additional UF tomorrow continue abx as per ID f/u CT of LE report continue MACIE with HD Nathan Vo DO
--- NOTE | 2017-12-13 16:35 | DS ---
Physical Examination Vital Signs: Vital Signs Temperature 98.7 F 12/13/17 13:55 Pulse Rate 99 H 12/13/17 16:00 Respiratory Rate 18 12/13/17 16:00 Blood Pressure 147/81 12/13/17 16:00 O2 Sat by Pulse Oximetry (%) 98 12/13/17 10:00 Constitutional: Yes: No Distress Eyes: Yes: WNL HENT: Yes: WNL Neck: Yes: WNL Cardiovascular: Yes: WNL Respiratory: Yes: WNL Gastrointestinal: Yes: WNL Renal/: Yes: Other Musculoskeletal: Yes: Other (CLAVICULAR MASS) Extremities: Yes: Other Edema: Yes Integumentary: Yes: Pressure Ulcer Wound/Incision: Yes: Dressing Removed, Unapproximated (RIGHT LOWER EXTREMITY WOUND CLEAN PACKED AND DRESSED) Neurological: Yes: Pre-Existing Deficit ...Motor Strength: RLE Psychiatric: Yes: Other Labs: CBC, BMP 12/13/17 14:00 12/13/17 14:00 Discharge Summary Reason For Visit: HYPERGLYCEMIS,HYPERTENSION,ABSCESS Current Active Problems Clavicular asymmetry (Acute) R/O OSTEOMYELITIS Diabetes mellitus type 1 with peripheral artery disease (Acute) Hyperglycemia (Acute) Leg abscess (Acute) 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 ( Acute) HTN (hypertension) (Chronic) Procedures: Principal: WOUND DRAINAGE AND SURGICAL DEBRIDEMENT Hospital Course: ADMITTED FOR WORSENING RIGHT LOWER EXTREMITY WOUND ABSCESS, DRAINED AND SURGICALLY CLEANED, WILL NEED ABX FOR WOUND LEVAQUIN 500MG EVERY OTHER DAY FOR 10 DAYS 5 DOSES FLAGYL 500MG TID FOR 14 DAYS WILL NEED CLAVICLE BIOPSY WITH ORTHOPEDICS FOR BIOPSY Condition: Fair - Instructions Diet, Activity, Other Instructions: NEEDS TO SEE ORTHOPEDICS DR GOMEZ FOR CLAVICLE BIOPSY HD PER RENAL WOUND CARE DAILY WITH DAILY PACKING REMOVED AND NEWLY PACKED WITH DRESSING Disposition: [facility] F[facility]ILITY - Home Medications Comprehensive Discharge Medication List: Ambulatory Orders cloNIDine HCL [Catapres -] 0.3 mg PO TID 06/28/17 Collagenase Clostridium Hist. [Santyl -] 1 applic TP DAILY #1 tube 10/01/17 Insulin Detemir [Levemir Flextouch] 17 unit SQ BID #1 insuln.pen 10/01/17 Insulin Lispro [Humalog Kwikpen U-100] 100 unit SQ ASDIR #10 insuln.pen oxyCODONE HCL [Roxicodone -] 10 mg PO Q6H PRN #20 tablet MDD 4 10/29/17 Oxycodone HCl 10 mg PO Q6H PRN #15 tablet MDD 4 11/12/17 Albuterol 0.083% Nebulizer No [Ventolin 0.083% Nebulizer Soln -] 1 amp NEB Q6H #10 amp 12/02/17 Nebulizer Accessories [A.i.r.s. Nebulizer] 1 each PRN #1 kit 12/02/17 Gabapentin [Neurontin -] 300 mg PO BID 12/07/17 Albuterol 0.083% Nebulizer No [Ventolin 0.083% Nebulizer Soln -] 1 amp NEB RQID amp 12/13/17 Heparin - 5,000 unit SQ BID vial 12/13/17 Insulin (Levemir) [Levemir Vial] 20 units SQ BIDI units 12/13/17 Insulin (Levemir) [Levemir Vial] 22 units SQ BIDI units 12/13/17 Insulin Sliding Scale [Novolog Vial Sliding Scale -] 1 vial SQ ACHS units 12/13 Insulin Sliding Scale [Novolog Vial Sliding Scale -] 1 vial SQ ACHS units 12/13 Labetalol HCl [Normodyne -] 400 mg PO BID tablet 12/13/17 Levofloxacin [Levaquin] 500 mg PO ASDIR #5 tablet 12/13/17 Losartan Potassium [Cozaar -] 100 mg PO DAILY tablet 12/13/17 cloNIDine HCL [Catapres -] 0.3 mg PO TID tablet 12/13/17 metroNIDAZOLE [Flagyl -] 500 mg PO TID #42 tablet 12/13/17 oxyCODONE HCL [Roxicodone -] 10 mg PO Q6H PRN tablet MDD 4 12/13/17
[2017-12-13 17:49] VITALS: BP 172/98; PULSE 98
[2017-12-13] MEDS ORDERED: INSULIN (NOVOLOG) ASPART 100 UNITS/ML 10ML VIAL ONE (18:47)
== END 2017-12-13 19:24 | DRG 602 ==
LOC: JER 12:17 → JERBED 20:46 → UNDOADMIN 21:45 → J8W 12-08 20:34
PROVIDERS: ADMIT Internal Medicine; ATTEND Family Medicine
PROC: 0J9N0ZX Drainage of Right Lower Leg Subcutaneous Tissue and Fascia, Open Approach, Diagnostic (ICD-10-PCS; principal; 2017-12-09 11:30)
PROC: 5A1D70Z Performance of Urinary Filtration, Intermittent, Less than 6 Hours Per Day (ICD-10-PCS; 2017-12-13)
DX: L03.115 Cellulitis of right lower limb (principal); N18.6 End stage renal disease; E10.52 Type 1 diabetes mellitus with diabetic peripheral angiopathy with gangrene; I13.2 Hypertensive heart and chronic kidney disease with heart failure and with stage 5 chronic kidney disease, or end stage renal disease; E10.621 Type 1 diabetes mellitus with foot ulcer; E10.65 Type 1 diabetes mellitus with hyperglycemia; Z99.2 Dependence on renal dialysis; D63.1 Anemia in chronic kidney disease; K21.9 Gastro-esophageal reflux disease without esophagitis; D72.829 Elevated white blood cell count, unspecified; I50.9 Heart failure, unspecified; E10.22 Type 1 diabetes mellitus with diabetic chronic kidney disease
CPT/HCPCS: 36415; 36430; 71045-TC-FY; 71046-TC-FY; 71130-TC-FY; 73000-TC-RT-FY; 73030-TC-RT-FY; 73200-TC-RT; 73590-TC-RT-FY; 73700-TC-RT; 80048; 80053; 82009; 82947; 82962; 83036; 84100; 84703; 85025; 85027; 85651; 86140; 86850; 86900; 86901; 86922; 87040; 87070; 87075; 87186; 87205; 93971-TC; 94640; 94760; 99285-25; G0463-25; G0480; J0131; J0735; J0885; J1644; J7620; P9038; P9058

== ENCOUNTER 2017-12-23 06:38 | Emergency (ER) | payer OTHER ==
[2017-12-23 07:15] VITALS: BMI 22.6
[2017-12-23] MEDS ORDERED: IBUPROFEN 600 MG TABLET (FP) PO ONE ×2 (08:02→08:06)
[2017-12-23] MEDS ORDERED: CYCLOBENZAPRINE HCL 5 MG TABLET PO ONE (08:55)
[2017-12-23] MEDS ORDERED: LIDOCAINE 5% TOPICAL PATCH TP ONE (08:55)
[2017-12-23] MEDS ORDERED: CYCLOBENZAPRINE HCL 10 MG TABLET (FP) ONE (08:57)
[2017-12-23] MEDS ORDERED: LIDOCAINE 5% TOPICAL PATCH ONE (08:57)
--- NOTE | 2017-12-23 09:21 | PDOC ---
History of Present Illness - General Chief Complaint: Pain Stated Complaint: RIBCAGE PAIN Time Seen by Provider: 12/23/17 07:23 History Source: Patient Exam Limitations: No Limitations - History of Present Illness Initial Comments: 12/23/17 11:54 Quinton Sawyer The patient is a 27-year-old female, with a past medical history of anemia, IDDM , ESRD (MWF), HTN, and seizures, who presents to the ED with increased shortness of breath, lower extremity swelling, and generalized weakness for the past 2 weeks. Patient is on dialysis (MWF) and follows up with Dr. Vo ( Nephrology). She reports a recent increase in her salt intake. Approx 1 week ago , patient twisted and injured her right lateral chest. She states that she was leaning on a rail, twisted, and heard a crack when she reached over. Since then she has been experiencing RT lateral chest wall pain that is worsened with movement and deep inspiration. The patient denies any fevers, chills, nausea, vomiting, diarrhea, or abdominal pain. Denies any urinary complaints. Allergies: Lactose Past Surgical History: Myxoma removal (2013), cholecystectomy, Foot sx x2. Past Social History: None reported. Past History - Past Medical History Allergies/Adverse Reactions: Allergies Allergy/AdvReac Type Severity Reaction Status Date / Time lactose AdvReac Verified 12/23/17 07:12 Home Medications: Ambulatory Orders cloNIDine HCL [Catapres -] 0.3 mg PO TID 06/28/17 Collagenase Clostridium Hist. [Santyl -] 1 applic TP DAILY #1 tube 10/01/17 Insulin Detemir [Levemir Flextouch] 17 unit SQ BID #1 insuln.pen 10/01/17 Insulin Lispro [Humalog Kwikpen U-100] 100 unit SQ ASDIR #10 insuln.pen oxyCODONE HCL [Roxicodone -] 10 mg PO Q6H PRN #20 tablet MDD 4 10/29/17 Oxycodone HCl 10 mg PO Q6H PRN #15 tablet MDD 4 11/12/17 Albuterol 0.083% Nebulizer No [Ventolin 0.083% Nebulizer Soln -] 1 amp NEB Q6H #10 amp 12/02/17 Nebulizer Accessories [A.i.r.s. Nebulizer] 1 each MC PRN #1 kit 12/02/17 Gabapentin [Neurontin -] 300 mg PO BID 12/07/17 Albuterol 0.083% Nebulizer No [Ventolin 0.083% Nebulizer Soln -] 1 amp NEB RQID amp 12/13/17 Heparin - 5,000 unit SQ BID vial 12/13/17 Insulin (Levemir) [Levemir Vial] 20 units SQ BIDI units 12/13/17 Insulin (Levemir) [Levemir Vial] 22 units SQ BIDI units 12/13/17 Insulin Sliding Scale [Novolog Vial Sliding Scale -] 1 vial SQ ACHS units 12/13 Insulin Sliding Scale [Novolog Vial Sliding Scale -] 1 vial SQ ACHS units 12/13 Labetalol HCl [Normodyne -] 400 mg PO BID tablet 12/13/17 Levofloxacin [Levaquin] 500 mg PO ASDIR #5 tablet 12/13/17 Losartan Potassium [Cozaar -] 100 mg PO DAILY tablet 12/13/17 cloNIDine HCL [Catapres -] 0.3 mg PO TID tablet 12/13/17 metroNIDAZOLE [Flagyl -] 500 mg PO TID #42 tablet 12/13/17 oxyCODONE HCL [Roxicodone -] 10 mg PO Q6H PRN tablet MDD 4 12/13/17 Anemia: Yes Asthma: No Cancer: No Cardiac Disorders: No CVA: No COPD: No CHF: No DVT: No Dementia: No Diabetes: Yes (15 yrs Insulin dependent) Dialysis: Yes (M/W/F) Disorders: Yes (esrd) HTN: Yes Hypercholesterolemia: No Kidney Stones: (ESRD, Dialysis Mon, W, F, Left arm Fistula) Liver Disease: No Seizures: Yes (Several yrs ago, no medication) Thyroid Disease: No - Surgical History Abdominal Surgery: No Appendectomy: No Cardiac Surgery: Yes (myxoma removed 2013) Cholecystectomy: Yes Lung Surgery: No Neurologic Surgery: No Orthopedic Surgery: Yes (foot sx x2) - Immunization History Td Vaccination: No TDAP Vaccination: No Immunization Up to Date: Yes - Suicide/Smoking/Psychosocial Hx Smoking Status: No Smoking History: Never smoked Have you smoked in the past 12 months: No Number of Cigarettes Smoked Daily: 10 If you are a former smoker, when did you quit?: couple months ago Information on smoking cessation initiated: No Hx Alcohol Use: No Drug/Substance Use Hx: No Substance Use Type: None Hx Substance Use Treatment: No Trauma Specific PMHX - Complaint Specific PMHX Arthritis: No Review of Systems - Review of Systems Able to Perform ROS?: Yes Comments:: 12/23/17 11:55 GENERAL/CONSTITUTIONAL: (+)Generalized weakness. No fever or chills. no sweats. HEAD, EYES, EARS, NOSE AND THROAT: No change in vision or hearing. No ear pain or discharge. No sore throat or mouth pain. No difficulty swallowing. No congestion. CARDIOVASCULAR: (+)Right lateral chest wall pain. No palpitations, syncope. + chronic leg edema. RESPIRATORY: (+)SOB. No cough, wheezing, or hemoptysis. GASTROINTESTINAL No nausea/vomiting. No diarrhea or constipation. No bloody stools. GENITOURINARY: No hematuria, dysuria, frequency, urgency or other changes. MUSCULOSKELETAL: (+)Lower extremity swelling. No joint swelling or pain. No neck or back pain. SKIN: No rash or changes in skin color or lesions. NEUROLOGIC: No headache, vertigo, loss of consciousness, or change in strength/ sensation. No gait instability. HEMATOLOGIC/LYMPHATIC: +anemia, No easy bruising/bleeding, or history of blood clots. ALLERGIC/IMMUNOLOGIC: No allergies All other systems reviewed and negative, or as documented in HPI. 12/23/17 11:56 *Physical Exam - Vital Signs Last Vital Signs Temp Pulse Resp BP Pulse Ox 98.7 F 97 H 18 155/98 100 12/23/17 07:12 12/23/17 07:12 12/23/17 07:12 12/23/17 07:12 12/23/17 07:12 - Physical Exam Comments: 12/23/17 11:57 General: (+)Patient appears malaised. awake and alert, NAD. HEENT: (+)Pale conjunctiva. NCAT, PERRL, EOMI, clear conjunctiva, anicteric, moist mucus membranes, clear oropharynx, no oral lesions.. Neck: neck supple, FROM Resp: (+)Patient on supplemental O2. CTAB, normal and even respirations Chest: right lateral chest wall tenderness. CVS: (+)holo-systolic murmur. RRR, 2+ peripheral pulses throughout, no peripheral edema Abdomen: soft, NTND, no peritoneal signs. Back: nontender, normal inspection and ROM MSK:(+)Bilateral lower extremity swelling, Right lateral chest wall tenderness, right clavicular deformity. THORNTON x4, ROM intact. No clubbing or cyanosis. normal bulk and tone. +chronic LE edema with chronic wound and dressings/foot ulcer. Neuro: alert, oriented appropriately; no focal neurologic deficits. Skin: warm and well perfused, cap refill <2 sec, normal color ED Treatment Course - LABORATORY CBC & Chemistry Diagram: 12/23/17 09:51 12/23/17 09:51 - RADIOLOGY Radiology Studies Ordered: Category Date Time Status CHEST PA & LAT [RAD] Stat Radiology 12/23/17 08:01 Completed RIBS RIGHT SIDE [RAD] Stat Radiology 12/23/17 08:54 Taken - Medications Given in the ED: ED Medications Discontinued Medications Generic Name Dose Route Start Last Admin Trade Name Freq PRN Reason Stop Dose Admin Cyclobenzaprine HCl 10 mg 12/23/17 08:55 12/23/17 09:19 Cyclobenzaprine Hcl PO 12/23/17 08:56 10 mg ONCE ONE Administration Ibuprofen 600 mg 12/23/17 08:02 12/23/17 08:07 Motrin - PO 12/23/17 08:03 600 mg ONCE ONE Administration Lidocaine 1 patch 12/23/17 08:55 12/23/17 09:19 Lidoderm Patch - TP 12/23/17 08:56 1 patch ONCE ONE Administration Medical Decision Making - Medical Decision Making 12/23/17 12:11 Quinton Sawyer The patient is a 27-year-old female, with a past medical history of anemia, IDDM , ESRD (MWF), HTN, and seizures, who presents to the ED with increased shortness of breath and right chest pain x 1 week s/p minor trauma after leaning over railing. DDx. rib fxs, contusion, pulm contusion, effusion, hemothorax, pneumonia, pleurisy. pneumothorax. vitals wnl. on 2-3L O2via NC labs and lytes with baseline elevation in Cr, H/H at baseline anemia. CXR with multiple right sided rib fx, no ptx. glucose elevated in 300s, given insulin SQ 10 units (missed morning dose) anuric, unable to give fluids Analgesia with oxycodone/morphine and topical lidocaine. received dialysis yesterday, sees Dr. Vo, CT chest ordered with multiple displaced right rib fractures and atelectasis. spoke with PMD Dr Villavicencio about case, agree with impression and plan and requested pt transferred to [facility] for trauma consultation and evaluation given poor respiratory reserve and multiple comorbidities. trauma surgery called. spoke with Dr. Beltrán, accepted to [facility] as trauma consult to evaluate the multiple rib fx. will transfer to the ED, consents signed 12/23/17 12:59 *DC/Admit/Observation/Transfer Diagnosis at time of Disposition: Fracture of ribs, multiple, closed - Discharge Dispostion Disposition: TRANSFER ACUTE CARE/OTHER HOSP Condition at time of disposition: Fair - Referrals - Patient Instructions - Post Discharge Activity - Transfer to Acute Care Facility Receiving Facility: [facility]. Accepting Physician:: Dr. Beltrán, Transfer comment: 12/23/17 12:17 Trauma consultation. - Attestations Physician Attestion: 12/23/17 12:18 I, Sandra Andrade MD, attest that this document has been prepared under my direction and personally reviewed by me in its entirety. I further attest, that it accurately reflects all work, treatment, procedures and medical decision -making performed by me.
[2017-12-23] MEDS ORDERED: oxyCODONE HCL 5 MG TABLET PO ONE (09:51)
[2017-12-23] MEDS ORDERED: oxyCODONE HCL 5 MG TABLET ONE (10:28)
[2017-12-23 10:32] LABS: INR 1.28 (0.83-1.09); PROTHROMBIN TIME (PATIENT) 14.5 SEC (9.7-13.0)
[2017-12-23 10:36] LABS: BASO % 1.1 % (0-2.0); EOS % 4.8 % (0-4.5); HEMATOCRIT 28.7 % (32.4-45.2); LYMPH % 10.8 % (8-40); MCH 25.9 pg (25.7-33.7); MCHC 31.2 g/dl (32.0-36.0); MEAN CELL VOLUME 82.9 fl (80-96); MEAN PLT VOLUME 8.8 fl (7.5-11.1); MONO % 13.9 % (3.8-10.2); NEUT % 69.4 % (42.8-82.8); PLATELET COUNT 289 K/MM3 (134-434); RBC 3.46 M/mm3 (3.60-5.2); RDW 17.5 % (11.6-15.6); WHITE BLOOD COUNT 8.4 K/mm3 (4.0-10.0)
[2017-12-23 10:48] LABS: GLUCOSE,RANDOM 331 mg/dL (74-106)
[2017-12-23] MEDS ORDERED: INSULIN REGULAR HUMAN 100 UNITS/ML *VIAL SQ ONE (11:14)
[2017-12-23] MEDS ORDERED: morphine CARPU-JECT 4 MG/1 ML DISP.SYRIN IVPUSH ONE (11:15)
[2017-12-23] MEDS ORDERED: INSULIN REGULAR HUMAN 100 UNITS/ML *VIAL ONE (11:21)
[2017-12-23 14:41] VITALS: BP 166/100; PULSE 98; TEMP 97.5
[2017-12-23 16:21] LABS: ALBUMIN 2.8 g/dl (3.4-5.0); ALK PHOS 814 U/L (45-117); ANION GAP 10 MMOL/L (8-16); BILIRUBIN,TOTAL 0.3 mg/dL (0.2-1); BLOOD UREA NITROGEN 31 mg/dL (7-18); CALCIUM 8.2 mg/dL (8.5-10.1); CHLORIDE 103 mmol/L (98-107); CO2 25 mmol/L (21-32); CREATININE 4.1 mg/dL (0.55-1.3); MAGNESIUM 2.2 mg/dL (1.8-2.4); PHOSPHOROUS 5.8 mg/dL (2.5-4.9); SGOT/AST 24 U/L (15-37); SGPT/ALT 17 U/L (13-61); SODIUM 138 mmol/L (136-145); TOT PROT 7.8 g/dl (6.4-8.2)
[2017-12-23] MEDS ORDERED: LIDOCAINE PATCH REMOVAL MC SCH (22:00)
== END 2017-12-23 13:30 | disposition short-term general hospital (02) ==
LOC: JER 06:38
PROC: 3E013VG Introduction of Insulin into Subcutaneous Tissue, Percutaneous Approach (ICD-10-PCS; principal; 2017-12-23)
DX: S22.49XA Multiple fractures of ribs, unspecified side, initial encounter for closed fracture (principal); S27.9XXA Injury of unspecified intrathoracic organ, initial encounter; X58.XXXA Exposure to other specified factors, initial encounter; Y93.89 Activity, other specified; Y92.89 Other specified places as the place of occurrence of the external cause; E11.22 Type 2 diabetes mellitus with diabetic chronic kidney disease; I12.0 Hypertensive chronic kidney disease with stage 5 chronic kidney disease or end stage renal disease; N18.6 End stage renal disease; Z99.2 Dependence on renal dialysis
CPT/HCPCS: 36415; 71046-TC-FY; 71101-TC-RT-FY; 71250-TC; 80053; 83735; 84100; 84702; 85025; 85610; 99285-25

== ENCOUNTER 2017-12-27 12:17 | Inpatient (IN) | payer OTHER ==
--- NOTE | 2017-12-27 12:35 | PDOC ---
History of Present Illness - General Chief Complaint: Shortness of Breath Stated Complaint: SOB Time Seen by Provider: 12/27/17 12:25 History Source: Patient, Parent(s) (Mother present for interview), Old Records Exam Limitations: No Limitations - History of Present Illness Initial Comments: 27 y/o female presenting to [facility] ER via ambulance from home complaining of chills and shortness of breath starting this morning. Computer Game Designer reports pt has received 2x albuterol and 1x combi nebs. Pts SPO2 was found to be 80% on room air with diffuse wheezing, which improved after treatment. Pt was placed on 3LPM of oxygen via nasal cannula, and SPO2 improved to >94%. Pt states she, feels bad. Mother reports pt has been coughing infrequently over the weekend. Pt was discharged from [facility] on Wednesday (12/24/2017) after she was transferred from this facility the day prior with concern for multiple right sided rib fractures in setting of pts comorbidities. She reports her pain , which is worse with deep inspiration, has been poorly controlled over the weekend. Last HD Run: Wednesday (12/24/2017), scheduled for Today H/o multiple diabetic wounds on lower right extremity. Dressings changed last at [facility]. S/p outpatient metronidazole therapy a few weeks ago. Pain is unchanged at site. Denies worsening drainage. PCP: None. Was previously admitted to Dr. Jolly service as favor, but pt was signed off his service after she left [facility] AMA. Soft Crab Shedder: Corey Cassidy Core Stripper: Kartik Vascular Surgeon: Bruno Junior Business Analyst: Ling Castillo Hx: Anemia T1DM ESRD (M,W,F), Anuric HTN Seizures PVD Atrial thrombus H/o Cardiac Arrest Past History - Past Medical History Allergies/Adverse Reactions: Allergies Allergy/AdvReac Type Severity Reaction Status Date / Time lactose AdvReac Verified 01/12/18 07:37 Home Medications: Ambulatory Orders cloNIDine HCL [Catapres -] 0.3 mg PO TID 06/28/17 Insulin Lispro [Humalog Kwikpen U-100] 100 unit SQ ASDIR #10 insuln.pen Nebulizer Accessories [A.i.r.s. Nebulizer] 1 each PRN #1 kit 12/02/17 Insulin Sliding Scale [Novolog Vial Sliding Scale -] 1 vial SQ ACHS units 12/13 Labetalol HCl [Normodyne -] 400 mg PO BID tablet 12/13/17 Losartan Potassium [Cozaar -] 100 mg PO DAILY tablet 12/13/17 Albuterol 0.083% Nebulizer No [Ventolin 0.083% Nebulizer Soln -] 1 amp NEB Q6H #10 amp 01/06/18 Collagenase Clostridium Hist. [Santyl -] 1 applic TP DAILY tube 01/06/18 Gabapentin [Neurontin -] 300 mg PO BID #60 capsule 01/06/18 Insulin (Levemir) [Levemir Vial] 13 units SQ BID@0700,2200 #0 units 01/06/18 Nifedipine ER [Procardia XL -] 30 mg PO DAILY tab.er.24 01/06/18 oxyCODONE HCL [Roxicodone -] 10 mg PO Q8H PRN #20 tablet MDD 3 01/06/18 Lidocaine 5% Patch [Lidoderm Patch -] 1 patch TP DAILY #7 patch 01/12/18 Anemia: Yes Asthma: Yes Cancer: No Cardiac Disorders: No CVA: No COPD: No (02 3l nc dependent.) CHF: No DVT: No Dementia: No Diabetes: Yes (15 yrs Insulin dependent) Dialysis: Yes (M/W/F) Disorders: Yes (esrd) HTN: Yes Hypercholesterolemia: No Kidney Stones: (ESRD, Dialysis Mon, W, F, Left arm Fistula) Liver Disease: No Seizures: Yes (Several yrs ago, no medication) Thyroid Disease: No - Surgical History Abdominal Surgery: No Appendectomy: No Cardiac Surgery: Yes (myxoma removed 2013) Cholecystectomy: Yes Lung Surgery: No Neurologic Surgery: No Orthopedic Surgery: Yes (foot sx x2) - Immunization History Td Vaccination: No TDAP Vaccination: No Immunization Up to Date: Yes - Suicide/Smoking/Psychosocial Hx Smoking Status: No Smoking History: Never smoked Have you smoked in the past 12 months: No Number of Cigarettes Smoked Daily: 10 If you are a former smoker, when did you quit?: couple months ago Information on smoking cessation initiated: No Hx Alcohol Use: No Drug/Substance Use Hx: No Substance Use Type: None Hx Substance Use Treatment: No Review of Systems - Review of Systems Able to Perform ROS?: Yes Comments:: In addition to that documented in the HPI above, the additional ROS was obtained : Constitutional: Endorses fevers or chills Eyes: Denies vision changes ENMT: Denies sore throat CV: Endorses chest pain Resp: Endorses SOB GI: Denies vomiting or diarrhea : Denies painful urination MSK: Endorses recent trauma Skin: Denies new rashes Neuro: Denies new numbness or tingling or weakness Endocrine: Denies polyuria Heme: Denies bleeding wounds *Physical Exam - Vital Signs Last Vital Signs Temp Pulse Resp BP Pulse Ox 120 H 24 H 171/109 12/27/17 12:20 12/27/17 12:20 12/27/17 12:20 - Physical Exam Comments: Constitutional: Well-developed, well-nourished female in mild acute respiratory distress. Found semi-fowlers in hospital bed. Alert and oriented x4. Answered all questions appropriately and completely. HEENT: Normocephalic. No obvious external signs of trauma. Hearing grossly normal. No nasal discharge. Neck is supple, trachea is midline. No JVD. Cardiovascular: Tachycardic rate and regular rhythm. No murmur, rubs, clicks, or gallops. Peripheral pulses: Radial pulses full. Respiratory: Tachypneic with accessory muscle usage. Equal chest rise and fall. Diffuse wheezing and rhonchi. No stridor. Gastrointestinal: abdomen is soft, non-tender, non-distended. Neuro: Alert and oriented. Moving all four extremities spontaneously. Skin: Hot, diaphoretic. Diabetic ulcers noted in both lower extremities with clean dressings in place. Dressings taken down and revealed clean wounds without active bleeding or purulent discharge. Psych: Affect: appropriate. Mood: normal. ED Treatment Course - LABORATORY CBC & Chemistry Diagram: 01/03/18 11:30 01/05/18 15:00 Medical Decision Making - Medical Decision Making *Reviewed vital signs, nursing notes, and prior visit documentation (if available). POC Glucose 236 Ordered CBC, CMP, CXR, EKG, blood cultures, Oxycodone at reported home dosing for pain control. 14:34 Mild wheezing and rhonchi. Ordered albuterol neb. Still awaiting CXR. 14:39 Made aware of critical Bun/Cr of 80/1.8. Pt due for dialysis. Potassium of 5.6. No EKG changes. Will monitor Bilateral infiltrates concerning for pneumonia. Pneumonia Ordered lactic acid to further evaluate. 16:[address] Ugalde. Would like pt admitted to ICU. Requests consultation with Dr. Rodrigues from infectious disease and nephrology for HD. 16:[address] Rodrigues of infectious disease. Requests 2.25mg Zosyn q8h and single dose of vancomycin. 17:[address] Vo from nephrology. Will arrange for HD today. Will ordered dose of vancomycin to be given during run. 17:44 Telephone consult with resident Dr. Perez from ICU service. Will evaluate pt. *DC/Admit/Observation/Transfer Diagnosis at time of Disposition: ESRD (end stage renal disease) on dialysis Pneumonia Qualifiers: Pneumonia type: due to unspecified organism Laterality: bilateral Lung location : lower lobe of lung Qualified Code(s): J18.1 - Lobar pneumonia, unspecified organism Ulcer of right leg Qualifiers: Non-pressure ulcer stage: with fat layer exposed Qualified Code(s): L97.912 - Non-pressure chronic ulcer of unspecified part of right lower leg with fat layer exposed Fracture of ribs, multiple, closed Qualifiers: Encounter type: subsequent encounter Laterality: right Fracture healing: with routine healing Qualified Code(s): S22.41XD - Multiple fractures of ribs, right side, subsequent encounter for fracture with routine healing - Discharge Dispostion Disposition: HOME Condition at time of disposition: Stable Decision to Admit order: Yes - Prescriptions - Referrals - Patient Instructions - Post Discharge Activity
[2017-12-27] MEDS ORDERED: HEMOQUE TEST 1 EACH EACH ONE (12:52)
--- NOTE | 2017-12-27 12:59 | PDOC ---
Attending Attestation - Resident Resident Name: Ashish Fitzpatrick - ED Attending Attestation I have performed the following: I have examined & evaluated the patient, The case was reviewed & discussed with the resident, I agree w/resident's findings & plan, Exceptions are as noted - HPI HPI: 12/27/17 15:46 Ms Sawyer is a 27 you F h/o ESRD on HD (M,W,F LUE AVF), IDDM, HTN, PVD, Atrial thrombus, Cardiac Arrest, Pneumonia, Right Foot ulcer who presents to the ED due to shorntness of breath and chest pain S/p recent visit to our ER for acute rib fractures She is s/p transfer to [facility] where she felt that nothing was being done for her She left AMA Pt is supposed to go to dialysis today but did not (in favor of coming to the ER ) Pt reports no fever - Physicial Exam PE: 12/29/17 08:42 Pt is awake, resting comfortably, pt is warm Dry mucous membranes pt is tachycardiac, regular shallow breaths, poor air entry No abd tenderness Peripheral edema noted - Medical Decision Making 12/27/17 15:51 Pt differential diagnosis includes: - Pneumonia - hemothorax - Pneumothorax - PE possible given pt history (? IVF filter) - Fluid overloading Will do: Labs CXR Renal for HD Admit 12/27/17 16:04 EKG: Sinus tachycardia, rate of 124 bpm, axis is normal, intervals are normal, there is no ST elevation or depression. 12/27/17 16:05 Laboratory Tests 12/27/17 12/27/17 13:19 13:19 WBC 17.4 H Hgb 9.1 L Hct 28.8 L Plt Count 347 D Sodium 135 L Potassium 5.6 H Chloride 104 Carbon Dioxide 18 L BUN 80 H Creatinine 7.4 H Random Glucose 217 H CXR: bibasilar consolidations noted Will call renal Will admit for Abx Given pt history would consider CTA prior to HD
[2017-12-27] MEDS ORDERED: oxyCODONE HCL 5 MG TABLET PO ONE (13:03)
[2017-12-27 13:28] LABS: BASO % 0.2 % (0-2.0); EOS % 2.1 % (0-4.5); HEMATOCRIT 28.8 % (32.4-45.2); HEMOGLOBIN 9.1 GM/dL (10.7-15.3); LYMPH % 2.9 % (8-40); MCH 26.1 pg (25.7-33.7); MCHC 31.6 g/dl (32.0-36.0); MEAN CELL VOLUME 82.9 fl (80-96); MEAN PLT VOLUME 8.6 fl (7.5-11.1); MONO % 5.6 % (3.8-10.2); NEUT % 89.2 % (42.8-82.8); PLATELET COUNT 347 K/MM3 (134-434); RBC 3.48 M/mm3 (3.60-5.2); RDW 17.4 % (11.6-15.6); WHITE BLOOD COUNT 17.4 K/mm3 (4.0-10.0)
[2017-12-27] MEDS ORDERED: oxyCODONE HCL 5 MG TABLET ONE (13:31)
[2017-12-27 14:12] LABS: ANISOCYTOSIS 0; MACROCYTOSIS 0; PLATELET ESTIMATE NORMAL; TARGET CELLS 1+; TEAR DROP CELLS 1+
[2017-12-27 14:15] LABS: ALK PHOS 793 U/L (45-117); ANION GAP 12 MMOL/L (8-16); BILIRUBIN,TOTAL 0.3 mg/dL (0.2-1); BLOOD UREA NITROGEN 80 mg/dL (7-18); CALCIUM 8.3 mg/dL (8.5-10.1); CHLORIDE 104 mmol/L (98-107); CO2 18 mmol/L (21-32); GLUCOSE,RANDOM 217 mg/dL (74-106); POTASSIUM 5.6 mmol/L (3.5-5.1); SGOT/AST 24 U/L (15-37); SGPT/ALT 15 U/L (13-61); SODIUM 135 mmol/L (136-145); TOT PROT 8.2 g/dl (6.4-8.2)
[2017-12-27] MEDS ORDERED: ALBUTEROL SO4 0.5 % INH SOLN 2.5 MG/0.5 ML VIAL.NEB. NEB ONE (14:34)
[2017-12-27 14:35] LABS: CREATININE 7.4 mg/dL (0.55-1.3)
[2017-12-27] MEDS ORDERED: ACETAMINOPHEN 1000 MG/100 ML VIAL (NON FORMULARY) IVPB ONE (16:24)
[2017-12-27] MEDS ORDERED: ACETAMINOPHEN INJECTION 100 ML IVPB ONE (17:14)
[2017-12-27] MEDS ORDERED: PIPERACILLIN/TAZOBACTAM 2.25 GM VIAL IVPB ONE (17:15)
--- NOTE | 2017-12-27 18:07 | EKG ---
Test Reason : Blood Pressure : / mmHG Vent. Rate : 124 BPM Atrial Rate : 124 BPM P-R Int : 160 ms QRS Dur : 072 ms QT Int : 304 ms P-R-T Axes : 063 071 048 degrees QTc Int : 436 ms SINUS TACHYCARDIA CANNOT RULE OUT ANTERIOR INFARCT , AGE UNDETERMINED ABNORMAL ECG WHEN COMPARED WITH ECG OF 24-NOV-2017 23:43, VENT. RATE HAS INCREASED Confirmed by MARYANN PÉREZ MD ([id number]) on 12/27/2017 6:07:14 PM Referred By: Confirmed By:MARYANN PÉREZ MD
[2017-12-27] MEDS: PIPERACILLIN/TAZOB 2.25 GM 2.25 GM in DEXTROSE 5%-WATER - 50 ML IVPB SCH (18:29)
[2017-12-27] MEDS ORDERED: ALBUTEROL SO4 0.083% IH SOL 2.5 MG/3 ML VIAL.NEB. NEB ONE (18:52)
[2017-12-27] MEDS ORDERED: SODIUM CHLORIDE 250 ML IV PRN (20:02)
[2017-12-27] MEDS ORDERED: EPOETIN ALFA 20,000 UNIT/1 ML VIAL IVPUSH ONE (20:15)
[2017-12-27] MEDS ORDERED: VANCOMYCIN 1,000 MG in DEXTROSE 5%-WATER - 250 ML IVPB ONE (20:15)
--- NOTE | 2017-12-27 20:22 | RAPID ---
Physical Examination Vital Signs: Vital Signs BP 92/47, repeat 140/80 100% on venti mask HR 108 Findings/Remarks: Rapid response in dialysis unit prior to start of dialysis. Upon initial exam, pt seen lethargic with limited responsiveness to sternal rub. Upon initial exam , pt was tachycardic with regular rhythm, R basilar crackles, abd soft, NT/ND, B /L 3+ pedal edema. Multiple wounds seen on R leg. Glucose 441. Pt put on venti mask with saturation at 100%. Pt progressively improved after 10 min upon evaluation and is awake, alert, and oriented. ECG ordered, sinus tachycardia, w / 1st degree AV block pending official read. Repeat BMP and lactate ordered. CXR ordered. Labs: CBC, BMP 12/27/17 13:19 12/27/17 13:19
--- NOTE | 2017-12-27 21:10 | CONSULT ---
Consultation: REQUESTING PROVIDER: CONSULT REQUEST: We have been asked to medically evaluate this patient for ( severe sepsis- ICU admission). Hydroelectric Plant Structural Engineer: Dr. Cassidy Boring Machine Feeder: Dr. Vo Vascular Surgeon: Skip Hoist Operator: Dr. Dubon HISTORY OF PRESENT ILLNESS: Patient is a 27 year old female, well known to [facility] was brought in via EMS with the chief complaints of shortness of breath x 1 day. As per ED note, she was found hypoxic to 80 % in RA with diffuse wheezing, improved after she was albuterol twice and 1 nebs. Patient reports that she was at [facility] on 12/24/2017 for evaluation of the multiple right sided rib fracture but signed out AMA the same day. She says she was doing well over the weekend however developed SOB today morning prompting her to come to the ED for the treatment. Denies chest pain, palpitation, abdominal pain, nausea or vomiting. Last HD was done on 12/24/2017. Patient was admitted on 12/07/2017- for RLE Cellulitis and Abscess. Was discharged on Levaquin 500 mg every other day and flagyl 500mg TID x 14 days, was recommended to see Ortho for possible clavicular biopsy, wound care, HD MWF. Patient was then seen in the ED on 12/23/2017 for multiple right rib fracture hence was transferred to [facility] to the trauma center for further evaluation and treatment given her multiple comorbidities, however, patient signed out AMA from [facility]. Today, patient was undergoing Dialysis (had completed about 45 mins), rapid response was called since she was unresponsive, hypotensive to 57mmHg systolic. Upon assessment, she was unresponsive to sternal rub, hypoxic to 80's, finger stick was 471 mg/dl. She was put on ventimask, her saturation improved, she started responding. BP improved to 100/60 mmHg. Dialysis was stopped. Transferred to ICU for further evaluation and treatment. PAST MEDICAL HISTORY: HD (M,W,F LUE AVF), IDDM, HTN, PVD, Atrial thrombus, Cardiac Arrest, Pneumonia, Right Foot ulcer, Atrial myxoma s/p resection in 2013 ALLERGIES: Lactulose PAST SURGICAL HISTORY: Myxoma removal (2013), cholecystectomy, Foot surgery twice SOCIAL HISTORY: Lives with her mother Smoking: Denies Alcohol: Denies Drugs: Denies FAMILY HISTORY: Mother: HTN, Grandparents: DM, Heart disease. Father-unknown. REVIEW OF SYSTEMS: CONSTITUTIONAL: Absent: fever, chills, diaphoresis, generalized weakness, malaise, loss of appetite, weight change HEENT: Absent: rhinorrhea, nasal congestion, throat pain, throat swelling, difficulty swallowing, mouth swelling, ear pain, eye pain, visual changes CARDIOVASCULAR: Absent: chest pain, syncope, palpitations, irregular heart rate, lightheadedness , peripheral edema RESPIRATORY: Present: SOB Absent: cough, dyspnea with exertion, orthopnea, wheezing, stridor, hemoptysis GASTROINTESTINAL: Absent: abdominal pain, abdominal distension, nausea, vomiting, diarrhea, constipation, melena, hematochezia GENITOURINARY: Absent: dysuria, frequency, urgency, hesitancy, hematuria, flank pain, genital pain MUSCULOSKELETAL: Absent: myalgia, arthralgia, joint swelling, back pain, neck pain SKIN: Absent: rash, itching, pallor HEMATOLOGIC/IMMUNOLOGIC: Absent: easy bleeding, easy bruising, lymphadenopathy, frequent infections ENDOCRINE: Absent: unexplained weight gain, unexplained weight loss, heat intolerance, cold intolerance NEUROLOGIC: Absent: headache, focal weakness or paresthesias, dizziness, unsteady gait, seizure, mental status changes, bladder or bowel incontinence PSYCHIATRIC: Absent: anxiety, depression, suicidal or homicidal ideation, hallucinations. PHYSICAL EXAMINATION Vital Signs - 24 hr 12/27/17 12/27/17 12/27/17 12:20 12:32 16:18 Temperature 98.6 F 102.9 F H Pulse Rate 120 H 119 H Pulse Rate [ 119 H Left Radial] Respiratory 24 H 20 Rate Blood Pressure 171/109 Blood Pressure 118/62 [Right Arm] O2 Sat by Pulse 95 Oximetry (%) 12/27/17 12/27/17 18:00 19:15 Temperature 100.3 F H 99.3 F Pulse Rate Pulse Rate [ 107 H 92 H Left Radial] Respiratory 18 25 H Rate Blood Pressure Blood Pressure 123/57 L 115/57 L [Right Arm] O2 Sat by Pulse 95 95 Oximetry (%) GENERAL: Young female, Awake, alert, and fully oriented, in no acute distress. HEAD: Normal with no signs of trauma. EYES: Puffy eyes, pallor +, no icterus. EARS, NOSE, THROAT: Ears normal. Moist mucous membranes. NECK: Supple. LUNGS: Tachypenic, B/L bibasilar crackles.No wheezes. No accessory muscle use. HEART: Tachycardic, Regular rate and rhythm, normal S1 and S2 with systolic murmur. ABDOMEN: Soft, nontender,no organomegaly. MUSCULOSKELETAL: Normal range of motion at all joints. No bony deformities or tenderness. No CVA tenderness. UPPER EXTREMITIES: LUE AVF functioning, 2+ pulses, warm, well-perfused. No cyanosis. No clubbing. Cap refill <2 seconds. No peripheral edema. LOWER EXTREMITIES: 2+ pulses, warm, well-perfused. No calf tenderness. No peripheral edema. NEUROLOGICAL: No facial droop. Normal speech. Gait not observed. PSYCHIATRIC: Cooperative. Good eye contact. Appropriate mood and affect. Refusing treatments. SKIN: Warm, dry, normal turgor. Multiple wounds/ulcers. Laboratory Results - last 24 hr 12/27/17 12/27/17 12/27/17 12:57 13:19 13:19 WBC 17.4 H RBC 3.48 L Hgb 9.1 L Hct 28.8 L MCV 82.9 MCH 26.1 MCHC 31.6 L RDW 17.4 H Plt Count 347 D MPV 8.6 Absolute Neuts (auto) 15.5 H Neutrophils % 89.2 H D Neutrophils % (Manual) 94.0 H Band Neutrophils % 0.0 Lymphocytes % 2.9 L D Lymphocytes % (Manual) 3.0 L D Monocytes % 5.6 Monocytes % (Manual) 3 L Eosinophils % 2.1 Eosinophils % (Manual) 0.0 D Basophils % 0.2 Basophils % (Manual) 0.0 Myelocytes % (Man) 0 Promyelocytes % (Man) 0 Blast Cells % (Manual) 0 Nucleated RBC % 0 Metamyelocytes 0 Hypochromia 1+ Platelet Estimate Normal Polychromasia 0 Poikilocytosis 1+ Anisocytosis 0 Microcytosis 1+ Macrocytosis 0 Target Cells 1+ Tear Drop Cells 1+ Sodium 135 L Potassium 5.6 H Chloride 104 Carbon Dioxide 18 L Anion Gap 12 BUN 80 H Creatinine 7.4 H Creat Clearance w eGFR 6.56 POC Glucometer [id number] Random Glucose 217 H Lactic Acid Calcium 8.3 L Total Bilirubin 0.3 AST 24 ALT 15 Alkaline Phosphatase 793 H Total Protein 8.2 Albumin 3.0 L 12/27/17 12/27/17 17:34 20:17 WBC RBC Hgb Hct MCV MCH MCHC RDW Plt Count MPV Absolute Neuts (auto) Neutrophils % Neutrophils % (Manual) Band Neutrophils % Lymphocytes % Lymphocytes % (Manual) Monocytes % Monocytes % (Manual) Eosinophils % Eosinophils % (Manual) Basophils % Basophils % (Manual) Myelocytes % (Man) Promyelocytes % (Man) Blast Cells % (Manual) Nucleated RBC % Metamyelocytes Hypochromia Platelet Estimate Polychromasia Poikilocytosis Anisocytosis Microcytosis Macrocytosis Target Cells Tear Drop Cells Sodium Potassium Chloride Carbon Dioxide Anion Gap BUN Creatinine Creat Clearance w eGFR POC Glucometer 441 Random Glucose Lactic Acid 1.5 Calcium Total Bilirubin AST ALT Alkaline Phosphatase Total Protein Albumin Active Medications Generic Name Dose Route Start Last Admin Trade Name Freq PRN Reason Stop Dose Admin Piperacillin Sod/Tazobactam 50 mls @ 100 mls/hr 12/27/17 18:00 12/27/17 18:29 Sod 2.25 gm/ Dextrose IVPB 100 mls/hr Q8H-IV ROSA MARIA Administration Protocol Sodium Chloride 250 mls @ 3,000 mls/hr 12/27/17 20:02 Normal Saline - IV 12/28/17 20:01 PRN PRN Hypotension during Dialysis Vancomycin HCl 1,000 mg/ 250 mls @ 166.667 mls/hr 12/27/17 20:15 Dextrose IVPB 12/27/17 21:44 ONCE ONE Protocol Patient is a 27 year old female, well known to [facility], with significant past medical history of HD (M,W,F LUE AVF), IDDM, HTN, PVD, Atrial thrombus, Cardiac Arrest, Pneumonia, Right Foot ulcer, non compliance was brought in via EMS with the chief complaints of shortness of breath x 1 day. ASSESSMENT # Respiratory Acute hypoxic respiratory failure likely secondary to sepsis from pneumonia WBC 17, tachycardic, bibasilar crackles, CXR shows possible pneumonia vs ARDS (unlikely ARDS) IV Vancomycin 1gm given post dialysis IV Zosyn 2.25 gm IV Q8H (Renally dosed) ID on board (Dr. Rodrigues) Repeat CXR in AM Multiple right rib fractures s/p fall last week CT chest 12/23/17: Multlple partially healed fractures in the right Pain control Incentive spirometry # Integuments: Sepsis could also be from the wounds. Was recently treated with IV Levaquin and Flagyl for RLE cellulitis and abscess Has Purulent diabetic ulcer 1.5 x 1.3, fowl smelling On IV Zosyn 2.25 gm IV Q8H, ID on board 12/07/17 would culture grew Serratia Marcescens Clavicular lesion CT chest 12/23/17 clavicular lesion suggesting brown tumor Would recommend bone biopsy when stable. # Cardiovascular Hypertension. Patient had hypotensive episode today for which rapid response was called. Will hold her medications for tonight. Reevaluate in the morning and restart her BP meds. Dr. Torres consult requested # Endocrinology yperglycemia likely due to [facility] Sugar 548; A; Potassium: 6.7 mEq [facility] protocol initiated. Started Insulin Drip @ 0.1 Unit/Kg; BMP every 3 hours, Finger stick every hourly IV NS @ 30 cc/hr followed by IV D5W @ 30 cc/hr when sugar was < 200mg/dl Discussed with Dr. Cassidy # Renal ESRD on HD MWF Dialysis was done today 12/27/2017 for 45 minutes, stopped since patient was found unresponsive, hypotensive Repeat labs post dialysis: Creatinine-7.9 ; K-6.7 Plan is to reevaluate the patient and start on HD as per Dr. Vo # Electrolye Imbalance K-6.7 likely due to ESRD, on IV Insulin drip, will repeat every 3 hrs creatinine- 7.9, would benefit from HD (likely tomorrow) Mg and phos to be done at 4am with morning labs Hyponatremia Na 131, IV NS @ 30 cc/hr (worried for overload hence giving only 30 cc/hr) # Hematology Normocytic anemia H/H 9.1/28.8 likely from anemia of chronic disease, repeat CBC in AM Transfuse if Hb is <7/Hct ,25. Monitor any bleeding. # FEN IV NS @ 30 cc/hr Electrolytes to be repeated Diabetic diet # Prophylaxis For DVT: patient refusing Heparin sq FoR GI: Not indicated # Code Status: Full Code Plan of care explained to the patient. She verbalized understanding. Dispo: We will continue to follow the patient. Thank you for this consultative opportunity. Visit type - Emergency Visit Emergency Visit: Yes ED Registration Date: 12/27/17 Care time: The patient presented to the Emergency Department on the above date and was hospitalized for further evaluation of their emergent condition. - New Patient This patient is new to me today: Yes Date on this admission: 12/29/17 - Critical Care Critical Care patient: Yes Total Critical Care Time (in minutes): 45 Critical Care Statement: The care of this patient involved high complexity decision making to prevent further life threatening deterioration of the patient 's condition and/or to evaluate & treat vital organ system(s) failure or risk of failure.
--- NOTE | 2017-12-27 21:39 | HP ---
Admitting History and Physical - Primary Care Physician PCP: Alma Ugalde - Admission History of Present Illness: 27 y/o female presenting to [facility] ER via ambulance from home complaining of chills and shortness of breath starting this morning. Wet Char Conveyor Tender reports pt has received 2x albuterol and 1x combi nebs. Pts SPO2 was found to be 80% on room air with diffuse wheezing, which improved after treatment. Pt was placed on 3LPM of oxygen via nasal cannula, and SPO2 improved to >94%. Pt states she, feels bad. Mother reports pt has been coughing infrequently over the weekend. Pt was discharged from [facility] on Wednesday (12/24/2017) after she was transferred from this facility the day prior with concern for multiple right sided rib fractures in setting of pts comorbidities. She reports her pain , which is worse with deep inspiration, has been poorly controlled over the weekend. - Past Medical History Cardiovascular: Yes: CHF, Deep Vein Thrombosis, HTN, Other (thrombus in atrium, PE, DVT) Pulmonary: No: Sleep Apnea Renal/: Yes: Renal Failure, Hemodialysis ...LMP: 05/13/17 Heme/Onc: Yes: Anemia, Other (atrial myxoma s/p surgical removal. Also has a history of PE ) Infectious Disease: Yes: MRSA, Other Endocrine: Yes: Diabetes Mellitus (type 1 on insulin pump) - Past Surgical History Past Surgical History: Yes: AV Fistula/Graft (Right arm) - Smoking History Smoking history: Never smoked Have you smoked in the past 12 months: No Aproximately how many cigarettes per day: 10 If you are a former smoker, when did you quit?: couple months ago - Alcohol/Substance Use Hx Alcohol Use: No History of Substance Use: reports: None - Social History ADL: Independent Occupation: unemployed History of Recent Travel: No Home Medications - Allergies Allergies/Adverse Reactions: Allergies Allergy/AdvReac Type Severity Reaction Status Date / Time lactose AdvReac Verified 12/27/17 12:22 - Home Medications Home Medications: Ambulatory Orders cloNIDine HCL [Catapres -] 0.3 mg PO TID 06/28/17 Collagenase Clostridium Hist. [Santyl -] 1 applic TP DAILY #1 tube 10/01/17 Insulin Detemir [Levemir Flextouch] 17 unit SQ BID #1 insuln.pen 10/01/17 Insulin Lispro [Humalog Kwikpen U-100] 100 unit SQ ASDIR #10 insuln.pen oxyCODONE HCL [Roxicodone -] 10 mg PO Q6H PRN #20 tablet MDD 4 10/29/17 Oxycodone HCl 10 mg PO Q6H PRN #15 tablet MDD 4 11/12/17 Albuterol 0.083% Nebulizer No [Ventolin 0.083% Nebulizer Soln -] 1 amp NEB Q6H #10 amp 12/02/17 Nebulizer Accessories [A.i.r.s. Nebulizer] 1 each PRN #1 kit 12/02/17 Gabapentin [Neurontin -] 300 mg PO BID 12/07/17 Insulin (Levemir) [Levemir Vial] 22 units SQ BIDI units 12/13/17 Insulin Sliding Scale [Novolog Vial Sliding Scale -] 1 vial SQ ACHS units 12/13 Labetalol HCl [Normodyne -] 400 mg PO BID tablet 12/13/17 Losartan Potassium [Cozaar -] 100 mg PO DAILY tablet 12/13/17 Family Disease History - Family Disease History Family Disease History: Diabetes: Grandparent (HTN), Heart Disease: Grandparent , Other: Father (unknown), Mother (HTN) Physical Examination Vital Signs: Vital Signs Temperature 99.3 F 12/27/17 19:15 Pulse Rate 96 H 12/27/17 20:00 Respiratory Rate 18 12/27/17 20:00 Blood Pressure 91/35 L 12/27/17 20:00 O2 Sat by Pulse Oximetry (%) 95 12/27/17 19:15 Constitutional: Yes: No Distress HENT: Yes: Atraumatic Neck: Yes: Supple Cardiovascular: Yes: Regular Rate and Rhythm Respiratory: Yes: CTA Bilaterally Gastrointestinal: Yes: Normal Bowel Sounds Extremities: Yes: Other (ulcers rlex/both feet) Edema: Yes Edema: LLE: 2+, RLE: 2+ Peripheral Pulses WNL: Yes Neurological: Yes: Alert, Oriented Labs: CBC, BMP 12/27/17 13:19 12/27/17 13:19 Imaging - Results Chest X-ray: Report Reviewed Problem List - Problems (1) Fracture of ribs, multiple, closed Assessment/Plan: prn pain meds Code(s): S22.49XA - MULTIPLE FRACTURES OF RIBS, UNSP SIDE, INIT FOR CLOS FX Qualifiers: Encounter type: subsequent encounter Laterality: right Fracture healing: with routine healing Qualified Code(s): S22.41XD - Multiple fractures of ribs , right side, subsequent encounter for fracture with routine healing (2) Pneumonia Assessment/Plan: on abx per id Code(s): J18.9 - PNEUMONIA, UNSPECIFIED ORGANISM Qualifiers: Pneumonia type: due to unspecified organism Laterality: bilateral Lung location: lower lobe of lung Qualified Code(s): J18.1 - Lobar pneumonia, unspecified organism (3) ESRD (end stage renal disease) on dialysis Assessment/Plan: on hd renal on board Code(s): N18.6 - END STAGE RENAL DISEASE; Z99.2 - DEPENDENCE ON RENAL DIALYSIS (4) Diabetes mellitus, insulin dependent (IDDM), uncontrolled Assessment/Plan: on insulin bgms Code(s): E10.65 - TYPE 1 DIABETES MELLITUS WITH HYPERGLYCEMIA Assessment/Plan Laboratory Tests 12/27/17 12/27/17 12/27/17 12:57 13:19 13:19 WBC 17.4 H RBC 3.48 L Hgb 9.1 L Hct 28.8 L MCV 82.9 MCH 26.1 MCHC 31.6 L RDW 17.4 H Plt Count 347 D MPV 8.6 Absolute Neuts (auto) 15.5 H Neutrophils % 89.2 H D Neutrophils % (Manual) 94.0 H Band Neutrophils % 0.0 Lymphocytes % 2.9 L D Lymphocytes % (Manual) 3.0 L D Monocytes % 5.6 Monocytes % (Manual) 3 L Eosinophils % 2.1 Eosinophils % (Manual) 0.0 D Basophils % 0.2 Basophils % (Manual) 0.0 Myelocytes % (Man) 0 Promyelocytes % (Man) 0 Blast Cells % (Manual) 0 Nucleated RBC % 0 Metamyelocytes 0 Hypochromia 1+ Platelet Estimate Normal Polychromasia 0 Poikilocytosis 1+ Anisocytosis 0 Microcytosis 1+ Macrocytosis 0 Target Cells 1+ Tear Drop Cells 1+ Sodium 135 L Potassium 5.6 H Chloride 104 Carbon Dioxide 18 L Anion Gap 12 BUN 80 H Creatinine 7.4 H Creat Clearance w eGFR 6.56 POC Glucometer [phone] Random Glucose 217 H Lactic Acid Calcium 8.3 L Total Bilirubin 0.3 AST 24 ALT 15 Alkaline Phosphatase 793 H Total Protein 8.2 Albumin 3.0 L 12/27/17 12/27/17 17:34 20:17 WBC RBC Hgb Hct MCV MCH MCHC RDW Plt Count MPV Absolute Neuts (auto) Neutrophils % Neutrophils % (Manual) Band Neutrophils % Lymphocytes % Lymphocytes % (Manual) Monocytes % Monocytes % (Manual) Eosinophils % Eosinophils % (Manual) Basophils % Basophils % (Manual) Myelocytes % (Man) Promyelocytes % (Man) Blast Cells % (Manual) Nucleated RBC % Metamyelocytes Hypochromia Platelet Estimate Polychromasia Poikilocytosis Anisocytosis Microcytosis Macrocytosis Target Cells Tear Drop Cells Sodium Potassium Chloride Carbon Dioxide Anion Gap BUN Creatinine Creat Clearance w eGFR POC Glucometer 441 Random Glucose Lactic Acid 1.5 Calcium Total Bilirubin AST ALT Alkaline Phosphatase Total Protein Albumin Active Medications Generic Name Dose Route Start Last Admin Trade Name Freq PRN Reason Stop Dose Admin Albumin Human 12.5 gm 12/27/17 21:30 Albumin Human 25% IVPB 12/27/17 23:01 Q30M ROSA MARIA Heparin Sodium (Porcine) 5,000 unit 12/27/17 22:00 Heparin - SQ BID ROSA MARIA Piperacillin Sod/Tazobactam 50 mls @ 100 mls/hr 12/27/17 18:00 12/27/17 18:29 Sod 2.25 gm/ Dextrose IVPB 100 mls/hr Q8H-IV ROSA MARIA Administration Protocol Sodium Chloride 250 mls @ 3,000 mls/hr 12/27/17 20:02 Normal Saline - IV 12/28/17 20:01 PRN PRN Hypotension during Dialysis Vancomycin HCl 1,000 mg/ 250 mls @ 166.667 mls/hr 12/27/17 20:15 Dextrose IVPB 12/27/17 21:44 ONCE ONE Protocol cc time 60 min Active Medications Generic Name Dose Route Start Last Admin Trade Name Freq PRN Reason Stop Dose Admin Albuterol Sulfate 1 amp 12/28/17 12:15 12/28/17 17:00 Ventolin 0.083% Nebulizer Soln - NEB 1 amp RQID ROSA MARIA Administration Clonidine 0.3 mg 12/28/17 14:00 12/28/17 13:38 Catapres - PO 0.3 mg TID ROSA MARIA Administration Gabapentin 300 mg 12/28/17 22:00 Neurontin - PO BID ROSA MARIA Heparin Sodium (Porcine) 5,000 unit 12/27/17 22:00 12/28/17 09:58 Heparin - SQ 5,000 unit BID ROSA MARIA Administration Piperacillin Sod/Tazobactam 50 mls @ 100 mls/hr 12/27/17 18:00 12/28/17 17:33 Sod 2.25 gm/ Dextrose IVPB 100 mls/hr Q8H-IV ROSA MARIA Administration Protocol Insulin Human Regular 100 100 mls @ 6.35 mls/hr 12/27/17 23:00 12/28/17 09:36 units/ Sodium Chloride IVPB 0 units/kg/hr TITR ROSA MARIA 0 mls/hr Titration Protocol 0.1 UNITS/KG/HR Sodium Chloride 1,000 mls @ 30 mls/hr 12/28/17 01:00 12/28/17 01:00 Normal Saline - IV 30 mls/hr ASDIR ROSA MARIA Administration Dextrose 1,000 mls @ 30 mls/hr 12/28/17 06:45 12/28/17 07:00 D5w - IV 30 mls/hr ASDIR ROSA MARIA Administration Sodium Chloride 250 mls @ 3,000 mls/hr 12/28/17 08:00 Normal Saline - IV 12/29/17 07:59 PRN PRN Hypotension during Dialysis Insulin Aspart 1 vial 12/27/17 22:00 12/28/17 17:33 Novolog Vial Sliding Scale - SQ 4 units ACHS ROSA MARIA Administration Protocol Insulin Detemir 17 units 12/27/17 22:00 12/28/17 06:27 Levemir Vial SQ Not Given BID@0700,2200 [facility] Labetalol HCl 400 mg 12/29/17 08:00 Normodyne - PO BID ROSA MARIA Losartan Potassium 100 mg 12/29/17 10:00 Cozaar - PO DAILY ROSA MARIA Oxycodone HCl 10 mg 12/28/17 12:19 12/28/17 13:39 Roxicodone - PO 10 mg Q6H PRN Administration PAIN LEVEL 6-10 cc time 60 min
[2017-12-27] MEDS: ALBUMIN HUMAN 25% 12.5 GM/50 ML VIAL IVPB SCH ×3 (21:43→21:46)
[2017-12-27] MEDS ORDERED: INSULIN DETEMIR 17 UNIT SQ SCH (22:00)
[2017-12-27] MEDS: HEPARIN NA (PORCINE) 5,000 UNITS/ML 1ML VIAL SQ SCH ×2 (22:48→23:26)
[2017-12-27] MEDS ORDERED: INSULIN REGULAR HUMAN 100 UNITS/ML *VIAL ONE (23:16)
[2017-12-27] MEDS: INSULIN (LEVEMIR) 100 UNITS/ML UNITS SQ SCH (23:24)
[2017-12-27] MEDS: INSULIN SLIDING SCALE (NOVOLOG) 1 VIAL SQ SCH (23:24)
[2017-12-28] MEDS: INSULIN REGULAR 100 UNITS in SODIUM CHLORIDE 99 ML IVPB SCH ×2 (00:07→22:07)
[2017-12-28 00:55] LABS: ANION GAP 14 MMOL/L (8-16); BLOOD UREA NITROGEN 89 mg/dL (7-18); CALCIUM 7.4 mg/dL (8.5-10.1); CHLORIDE 100 mmol/L (98-107); CO2 16 mmol/L (21-32); SODIUM 131 mmol/L (136-145)
[2017-12-28 00:57] LABS: CREATININE 7.9 mg/dL (0.55-1.3); GLUCOSE,RANDOM 548 mg/dL (74-106); POTASSIUM 6.7 mmol/L (3.5-5.1)
[2017-12-28] MEDS: SODIUM CHLORIDE 1,000 ML IV SCH (01:00)
[2017-12-28] MEDS ORDERED: PIPERACILLIN/TAZOBACTAM 2.25 GM VIAL IVPB ONE ×3 (04:03→17:28)
[2017-12-28] MEDS ORDERED: DEXTROSE 5%-WATER - 50 ML IVPB ONE ×3 (04:03→17:28)
[2017-12-28] MEDS: PIPERACILLIN/TAZOB 2.25 GM 2.25 GM in DEXTROSE 5%-WATER - 50 ML IVPB SCH ×3 (04:06→17:33)
[2017-12-28 04:13] LABS: HEMATOCRIT 27.9 % (32.4-45.2); HEMOGLOBIN 8.6 GM/dL (10.7-15.3); MCH 25.9 pg (25.7-33.7); MCHC 30.9 g/dl (32.0-36.0); MEAN CELL VOLUME 83.7 fl (80-96); MEAN PLT VOLUME 8.7 fl (7.5-11.1); PLATELET COUNT 287 K/MM3 (134-434); RBC 3.33 M/mm3 (3.60-5.2); RDW 17.4 % (11.6-15.6); WHITE BLOOD COUNT 19.6 K/mm3 (4.0-10.0)
[2017-12-28 04:39] LABS: ANION GAP 17 MMOL/L (8-16); BLOOD UREA NITROGEN 86 mg/dL (7-18); CHLORIDE 101 mmol/L (98-107); CO2 16 mmol/L (21-32); MAGNESIUM 2.3 mg/dL (1.8-2.4); PHOSPHOROUS 6.9 mg/dL (2.5-4.9); SODIUM 134 mmol/L (136-145)
[2017-12-28 04:40] LABS: GLUCOSE,RANDOM 340 mg/dL (74-106)
[2017-12-28 04:41] LABS: CREATININE 7.9 mg/dL (0.55-1.3); POTASSIUM 6.1 mmol/L (3.5-5.1)
[2017-12-28] MEDS: INSULIN (LEVEMIR) 100 UNITS/ML UNITS SQ SCH ×2 (06:27→22:07)
[2017-12-28] MEDS: INSULIN SLIDING SCALE (NOVOLOG) 1 VIAL SQ SCH ×4 (06:27→21:33)
[2017-12-28] MEDS: DEXTROSE 5%-WATER - 1,000 ML IV SCH (07:00)
[2017-12-28 07:12] LABS: ANION GAP 14 MMOL/L (8-16); BLOOD UREA NITROGEN 92 mg/dL (7-18); CALCIUM 7.8 mg/dL (8.5-10.1); CHLORIDE 103 mmol/L (98-107); CO2 17 mmol/L (21-32); GLUCOSE,RANDOM 154 mg/dL (74-106); POTASSIUM 5.7 mmol/L (3.5-5.1); SODIUM 134 mmol/L (136-145)
[2017-12-28 07:16] LABS: CREATININE 8.1 mg/dL (0.55-1.3)
[2017-12-28] MEDS ORDERED: INSULIN (LEVEMIR) 100 UNITS/ML UNITS SQ ONE (07:28)
[2017-12-28] MEDS ORDERED: SODIUM CHLORIDE 250 ML IV PRN (08:00)
[2017-12-28] MEDS: ALBUMIN HUMAN 25% 12.5 GM/50 ML VIAL IVPB SCH ×5 (08:00→21:12)
--- NOTE | 2017-12-28 08:22 | PN ---
Progress Note (short form) - Note Progress Note: Chief Complaint: Events noted, notes reviewed, persistent dyspnea/moderate respiratory distress, denies any chest pain, sinus rhythm noted sinus tachycardia History of Present Illness: Seen and examined in the ICU. Full consult dictated - Current Medication List Current Medications Albumin Human (Albumin Human 25%) 12.5 gm IVPB Q30M ROSA MARIA Stop: 12/28/17 09:31 Heparin Sodium (Porcine) (Heparin -) 5,000 unit SQ BID ROSA MARIA Last Admin: 12/27/17 23:26 Dose: Not Given Piperacillin Sod/Tazobactam (Sod 2.25 gm/ Dextrose) 50 mls @ 100 mls/hr IVPB Q8H-IV ROSA MARIA; Protocol Last Admin: 12/28/17 04:06 Dose: 100 mls/hr Sodium Chloride (Normal Saline -) 250 mls @ 3,000 mls/hr IV PRN PRN PRN Reason: Hypotension during Dialysis Stop: 12/28/17 20:01 Insulin Human Regular 100 (units/ Sodium Chloride) 100 mls @ 6.35 mls/hr IVPB TITR [facility]; Protocol Last Admin: 12/28/17 00:07 Dose: 0.1 units/kg/hr, 6.35 mls/hr Sodium Chloride (Normal Saline -) 1,000 mls @ 30 mls/hr IV ASDIR ROSA MARIA Last Admin: 12/28/17 01:00 Dose: 30 mls/hr Dextrose (D5w -) 1,000 mls @ 30 mls/hr IV ASDIR ROSA MARIA Sodium Chloride (Normal Saline -) 250 mls @ 3,000 mls/hr IV PRN PRN PRN Reason: Hypotension during Dialysis Stop: 12/29/17 07:59 Influenza Virus Vaccine Quadrival (Flulaval Quad [id number]) 60 mcg IM .ONCE ONE Stop: 12/28/17 10:01 Insulin Aspart (Novolog Vial Sliding Scale -) 1 vial SQ ACHS [facility]; Protocol Last Admin: 12/28/17 06:27 Dose: Not Given Insulin Detemir (Levemir Vial) 17 units SQ BID@0700,2200 [facility] Last Admin: 12/28/17 06:27 Dose: Not Given Review of Systems - Review of Systems Constitutional: reports: Fever Cardiovascular: as noted above Gastrointestinal: denies: Nausea, Vomiting, Diarrhea, Constipation or Abdominal Pain Genitourinary: on HD Neurological: No symptoms reported - Objective Vital Signs: Last Vital Signs Temp Pulse Resp BP Pulse Ox 99.8 F H 107 H 18 158/97 100 12/28/17 06:38 12/28/17 07:35 12/28/17 07:35 12/28/17 07:35 12/27/17 22:00 Neck: Supple Negative JVD No Bruit Cardiovascular: S1 S2 Regular Rate Rhythm Grade 1-2/6 systolic apical murmur Respiratory: Diminished Breath Sounds at the Bases Bilaterally Bilateral Scattered Rhonchi Gastrointestinal: Soft Benign Normal Bowel Sounds Ext: Edema Labs: CBC, BMP 12/28/17 04:00 12/28/17 06:20 Hepatic Panel Total Bilirubin 0.3 mg/dL (0.2-1) 12/27/17 13:19 AST 24 U/L (15-37) 12/27/17 13:19 ALT 15 U/L (13-61) 12/27/17 13:19 Alkaline Phosphatase 793 U/L (45-117) H 12/27/17 13:19 Albumin 3.0 g/dl (3.4-5.0) L 12/27/17 13:19 Assessment/Plan ASSESSMENT: 1. Respiratory distress/failure, acute hypoxic respiratory failure related to extensive pneumonitis with probable sepsis syndrome, post recent rib fractures 2. Post rapid response 3. Diastolic LV dysfunction with class I NYHA classification LV failure, volume overload 4. History of LA myxoma post resection 5. History of LA thrombus, unclear etiology and timing 6. HTN 7. IDDM 8. ESRD on HD PLAN: 1. Antibiotics as per the primary team 2. HD as per renal service 3. Recommend resumption B-Anne Marie therapy once hemodynamic stability is maintained, initiate in AM 4. Recommend resumption ARBS or ACEI therapy once hemodynamic stability is maintained, initiate in AM 5. Repeat echocardiography for evaluation of LV size and function Murali Barone MD
--- NOTE | 2017-12-28 09:31 | CONS ---
DATE OF CONSULTATION: 12/28/2017 REQUESTING PHYSICIAN: Alma Ugalde MD CHIEF COMPLAINT: Cardiovascular evaluation, respiratory distress. History was predominantly obtained from the chart. Patient currently is lethargic but arousable and a poor historian. A 27-year-old female of descent with known history of diastolic left ventricular dysfunction; hypertensive cardiovascular disease; insulin-dependent diabetes mellitus; left atrial myoma post resection; questionable history of left atrial thrombus, currently on no anticoagulation therapy; end-stage renal disease on hemodialysis; who was recently admitted to [facility] with fall, fracture of ribs, and subsequently transferred to [facility] from where she had signed out against medical advice to present to [facility] Emergency Room yesterday with respiratory distress. Patient was noted to be unresponsive and hypotensive during hemodialysis session. In view of which, rapid response was called. Patient regained consciousness with improvement in blood pressure measurements. As noted above, patient currently is lethargic but arousable and appears to be in moderate respiratory distress. Reports chest discomfort which is exacerbated by inspiration. Denies orthopnea or paroxysmal nocturnal dyspnea. Denies palpitations. Chest x-ray from this a.m. was noted. PAST MEDICAL HISTORY: Systolic left ventricular dysfunction with chronic class 0-1 [place] [employer] classification left ventricular failure; history of left atrial myxoma post resection; questionable history of left atrial thrombus, currently on no anticoagulation therapy; hypertensive cardiovascular disease; diabetes mellitus; end-stage renal disease on hemodialysis; peripheral vascular disease. SOCIAL HISTORY: Denies smoking. FAMILY HISTORY: Positive for coronary artery disease. ALLERGIES: Intolerance to LACTOSE. MEDICAL THERAPY: Currently includes subcutaneous heparin 5000 units twice a day, piperacillin/tazobactam 2.25 g every 8 hours, insulin coverage. REVIEW OF SYSTEMS: Head and Neck: Denies headache, photophobia, blurring of vision. Respiratory: No cough or sputum production. Cardiovascular: As noted above. Gastrointestinal: Denies nausea, vomiting, diarrhea, or abdominal discomfort. Genitourinary: On hemodialysis. Musculoskeletal: No symptoms reported. PHYSICAL EXAMINATION: Vital Signs: Blood pressure is 158/97 mmHg. Pulse rate is 107 beats per minute. Head and Neck: Pupils equal and reactive to light and accommodation. Extraocular muscles are intact. Anicteric sclerae. Negative JVD. No bruit appreciated. Chest: Bilateral coarse rhonchi. Cardiovascular: S1 and S2 regular. A grade 2/6 systolic apical murmur. No clicks or gallops. Abdomen: Soft, benign. Normoactive bowel sounds. Extremities: Bilateral edema. Decreased distal pulses. No calf tenderness. Electrocardiogram revealed sinus tachycardia with poor R-wave progression, nonspecific T-wave abnormality. Chest x-ray from this a.m. was noted, infiltrate. CBC revealed white cell count of 19.6, hemoglobin 8.6, platelet count 287. Basic metabolic profile revealed sodium 134, potassium 5.7, BUN 92, creatinine 8.1, glucose 154. ASSESSMENT: 1. Respiratory distress/failure, acute hypoxic respiratory failure related to extensive pneumonitis with probable sepsis syndrome, post recent rib fractures. 2. Post rapid response. 3. Diastolic left ventricular dysfunction with class 1 [place] [employer] left ventricular failure and volume overload. 4. History of left atrial myoma, post resection. 5. History of left atrial thrombus, unclear etiology and timing, currently on no anticoagulation therapy. 6. Hypertensive cardiovascular disease. 7. Insulin-dependent diabetes mellitus. 8. End-stage renal disease on hemodialysis. RECOMMENDATION: 1. Antibiotics as per the primary team. 2. Hemodialysis as per renal service. 3. Recommend resumption of beta-lawson therapy once hemodynamic stability is maintained, initiate in the morning. 4. Recommend resumption of angiotensin receptor lawson or DAMIAN inhibitor therapy once hemodynamic stability is maintained, initiate in the morning. 5. Repeat echocardiography for evaluation of left ventricular size and function. Thank you for the kind referral. VIRGEN FINLEY M.D. [id number]
[2017-12-28] MEDS ORDERED: PT OWN MED DRAWER 7, Y5N ONE (09:44)
[2017-12-28] MEDS: HEPARIN NA (PORCINE) 5,000 UNITS/ML 1ML VIAL SQ SCH ×2 (09:58→22:06)
[2017-12-28] MEDS ORDERED: FLU VACCINE QUAD 60 MCG/0.5 ML (MDV 18-19) IM ONE (10:00)
--- NOTE | 2017-12-28 11:21 | CONSULT ---
Consult - text type - Consultation Consultation Note: Renal Consult for ESRD on HD This is a 27 year old woman with hx of ESRD on Hd (MWF), DM type 2, Hypertension , Hx fo PE, LE wounds, Chronic volume overload, Diastolic HF presented from home with complaints of SOB and admitted for Sepsis/PNA. Pt recently developed rib fractures and was transferred to [facility] but no further management was done. Pt last had dialysis on Wednesday as outpatient. Pt was taken to dialysis yesterday evening but pt became hypotensive and dialysis was terminated. INFORMATION SERVICES TECH was called at that time but BP improved s/p discontinuation of dialysis. Pt on dialysis this am and tolerating it well. Has continued sob and pain on chest wall. No N/V /D.No flank pain. PMhx: as above Allergies: NKDA Family hx: NC Social Hx: no T/A/D ROS: as per HPI Home Medications Medication Instructions Recorded cloNIDine HCL [Catapres -] 0.3 mg PO TID 06/28/17 Collagenase Clostridium Hist. 1 applic TP DAILY #1 tube 10/01/17 [Santyl -] Insulin Detemir [Levemir Flextouch] 17 unit SQ BID #1 insuln.pen 10/01/17 Insulin Lispro [Humalog Kwikpen 100 unit SQ ASDIR #10 insuln.pen 10/03/17 U-100] oxyCODONE HCL [Roxicodone -] 10 mg PO Q6H PRN #20 tablet MDD 4 10/29/17 Oxycodone HCl 10 mg PO Q6H PRN #15 tablet MDD 4 11/12/17 Albuterol 0.083% Nebulizer No 1 amp NEB Q6H #10 amp 12/02/17 [Ventolin 0.083% Nebulizer Soln -] Nebulizer Accessories [A.i.r.s. 1 each PRN #1 kit 12/02/17 Nebulizer] Gabapentin [Neurontin -] 300 mg PO BID 12/07/17 Insulin (Levemir) [Levemir Vial] 22 units SQ BIDI units 12/13/17 Insulin Sliding Scale [Novolog 1 vial SQ ACHS units 12/13/17 Vial Sliding Scale -] Labetalol HCl [Normodyne -] 400 mg PO BID tablet 12/13/17 Losartan Potassium [Cozaar -] 100 mg PO DAILY tablet 12/13/17 Vital Signs Temperature 99.8 F H 12/28/17 06:38 Pulse Rate 104 H 12/28/17 11:05 Respiratory Rate 18 12/28/17 11:05 Blood Pressure 162/106 H 12/28/17 11:05 O2 Sat by Pulse Oximetry (%) 99 12/28/17 10:00 Mild SOB, on venti mask Neck supple MMM tachycardic, no M/R Dec BS b/l lung bases soft NT/ND Abd Trace to mild edema in LE CBC, BMP 12/28/17 04:00 12/28/17 06:20 Current Medications Epoetin Abiel (Procrit -) 20,000 unit IVPUSH ONCE ONE Stop: 12/28/17 11:31 Last Admin: 12/28/17 11:22 Dose: 20,000 unit Heparin Sodium (Porcine) (Heparin -) 5,000 unit SQ BID ROSA MARIA Last Admin: 12/28/17 09:58 Dose: 5,000 unit Piperacillin Sod/Tazobactam (Sod 2.25 gm/ Dextrose) 50 mls @ 100 mls/hr IVPB Q8H-IV ROSA MARIA; Protocol Last Admin: 12/28/17 09:56 Dose: 100 mls/hr Sodium Chloride (Normal Saline -) 250 mls @ 3,000 mls/hr IV PRN PRN PRN Reason: Hypotension during Dialysis Stop: 12/28/17 20:01 Insulin Human Regular 100 (units/ Sodium Chloride) 100 mls @ 6.35 mls/hr IVPB TITR ROSA MARIA; Protocol Last Titration: 12/28/17 09:36 Dose: 0 units/kg/hr, 0 mls/hr Sodium Chloride (Normal Saline -) 1,000 mls @ 30 mls/hr IV ASDIR ROSA MARIA Last Admin: 12/28/17 01:00 Dose: 30 mls/hr Dextrose (D5w -) 1,000 mls @ 30 mls/hr IV ASDIR ROSA MARIA Last Admin: 12/28/17 07:00 Dose: 30 mls/hr Sodium Chloride (Normal Saline -) 250 mls @ 3,000 mls/hr IV PRN PRN PRN Reason: Hypotension during Dialysis Stop: 12/29/17 07:59 Insulin Aspart (Novolog Vial Sliding Scale -) 1 vial SQ ACHS ROSA MARIA; Protocol Last Admin: 12/28/17 09:59 Dose: 6 units Insulin Detemir (Levemir Vial) 17 units SQ BID@0700,2200 ROSA MARIA Last Admin: 12/28/17 06:27 Dose: Not Given 27 year old woman with hx of ESRD on Hd (MWF), DM type 2, Hypertension, Hx fo PE , LE wounds, Chronic volume overload, Diastolic HF presented from home with complaints of SOB and admitted for Sepsis/PNA. #Sepsis secondary to RLL PNA #ESRD on Hd with Hyperkalemia #Metabolic acidosis from renal failure +/- DKA #DM type 1 with uncontrolled blood glucose #Anemia #Hypertension Pt tolerating dialysis this am Will plan to remove ~2L on dialysis BP meds being held for now but if BP trending up after dialysis can start to resume oral antihypertensive meds Continue empiric abx for Sepsis/PNA F/u cultures ICU monitoring with supplemental O2 as needed will plan further dialysis as needed for volume management Renal diet when able to tolerate it 1.2L daily fluid restriction Dose all meds for intermittent HD Thank you Will follow Nathan Vo DO
[2017-12-28] MEDS ORDERED: EPOETIN ALFA 20,000 UNIT/1 ML VIAL IVPUSH ONE (11:30)
[2017-12-28] MEDS: ALBUTEROL SO4 0.083% IH SOL 2.5 MG/3 ML VIAL.NEB. NEB SCH ×3 (12:00→20:45)
[2017-12-28] MEDS ORDERED: [UNRECOGNIZED DRUG - SUPPLY] MC SCH (12:15)
[2017-12-28] MEDS: cloNIDine HCL 0.1 MG TABLET PO SCH ×2 (13:38→22:07)
[2017-12-28] MEDS: oxyCODONE HCL 5 MG TABLET PO PRN (13:39)
[2017-12-28 13:52] LABS: HEMATOCRIT 26.8 % (32.4-45.2); HEMOGLOBIN 8.6 GM/dL (10.7-15.3); MCH 25.9 pg (25.7-33.7); MCHC 32.3 g/dl (32.0-36.0); MEAN CELL VOLUME 80.4 fl (80-96); MEAN PLT VOLUME 8.9 fl (7.5-11.1); PLATELET COUNT 280 K/MM3 (134-434); RBC 3.33 M/mm3 (3.60-5.2); RDW 17.1 % (11.6-15.6)
[2017-12-28 14:43] LABS: CREATININE 2.7 mg/dL (0.55-1.3)
--- NOTE | 2017-12-28 15:18 | CON.ID ---
Consult - Past Medical History Cardio/Vascular: Yes: CHF, Deep Vein Thrombosis, HTN, Other (thrombus in atrium , PE, DVT) Pulmonary: No: Sleep Apnea Renal/: Yes: Renal Failure, Hemodialysis ...LMP: 05/13/17 ...LMP Comment: pt states she has not having period for years Infectious Disease: Yes: MRSA, Other Endocrine: Yes: Diabetes Mellitus (type 1 on insulin pump) Additional Medical History: DVT, PE on coumadin - Past Surgical History Past Surgical History: Yes: AV Fistula/Graft (Right arm) - Alcohol/Substance Use Hx Alcohol Use: No History of Substance Use: reports: None - Smoking History Smoking history: Never smoked Have you smoked in the past 12 months: No Aproximately how many cigarettes per day: 10 If you are a former smoker, when did you quit?: couple months ago - Social History Usual Living Arrangement: With Parent ADL: Independent Occupation: unemployed History of Recent Travel: No Home Medications - Allergies Allergies/Adverse Reactions: Allergies Allergy/AdvReac Type Severity Reaction Status Date / Time lactose AdvReac Verified 12/27/17 12:22 - Home Medications Home Medications: Ambulatory Orders cloNIDine HCL [Catapres -] 0.3 mg PO TID 06/28/17 Collagenase Clostridium Hist. [Santyl -] 1 applic TP DAILY #1 tube 10/01/17 Insulin Detemir [Levemir Flextouch] 17 unit SQ BID #1 insuln.pen 10/01/17 Insulin Lispro [Humalog Kwikpen U-100] 100 unit SQ ASDIR #10 insuln.pen oxyCODONE HCL [Roxicodone -] 10 mg PO Q6H PRN #20 tablet MDD 4 10/29/17 Oxycodone HCl 10 mg PO Q6H PRN #15 tablet MDD 4 11/12/17 Albuterol 0.083% Nebulizer No [Ventolin 0.083% Nebulizer Soln -] 1 amp NEB Q6H #10 amp 12/02/17 Nebulizer Accessories [A.i.r.s. Nebulizer] 1 each PRN #1 kit 12/02/17 Gabapentin [Neurontin -] 300 mg PO BID 12/07/17 Insulin (Levemir) [Levemir Vial] 22 units SQ BIDI units 12/13/17 Insulin Sliding Scale [Novolog Vial Sliding Scale -] 1 vial SQ ACHS units 12/13 Labetalol HCl [Normodyne -] 400 mg PO BID tablet 12/13/17 Losartan Potassium [Cozaar -] 100 mg PO DAILY tablet 12/13/17 Family Disease History - Family Disease History Family Disease History: Diabetes: Grandparent (HTN), Heart Disease: Grandparent , Other: Father (unknown), Mother (HTN) Physical Exam Vital Signs: Vital Signs Temperature 99.8 F H 12/28/17 06:38 Pulse Rate 105 H 12/28/17 14:56 Respiratory Rate 18 12/28/17 14:56 Blood Pressure 165/91 12/28/17 14:56 O2 Sat by Pulse Oximetry (%) 99 12/28/17 10:00 Labs: CBC, BMP 12/28/17 13:35 12/28/17 11:40
[2017-12-28] MEDS ORDERED: PATIENT'S OWN MEDICATION (NON-FORMULARY) (Oxycodone Hcl [Oxycodone Hcl] 10 MG) PO PRN (15:45)
--- NOTE | 2017-12-28 15:56 | ECHO ---
Name: THEA SINGH Exam:Adult Echocardiogram Study Date: 12/28/2017 02:32 PM Age: 27 yrs Reason For Study: lv fxn Height: 66 in Weight: 151 lb BSA: 1.8 m2 MMode/2D Measurements & Calculations IVSd: 1.0 cm Ao root diam: 2.5 cm LVIDd: 4.4 cm LA dimension: 3.5 cm LVIDs: 2.9 cm LVPWd: 1.0 cm EDV(Teich): 88.3 ml LVOT diam: 1.8 cm ESV(Teich): 31.4 ml TAPSE: 2.2 cm RV S Pawel: 13.1 cm/sec Doppler Measurements & Calculations MV E max pawel: 77.5 cm/sec Ao V2 max: 200.9 cm/sec MV A max pwael: 99.2 cm/sec Ao max P.1 mmHg MV E/A: 0.78 MV dec time: 0.13 sec TREVOR(V,D): 2.3 cm2 LV V1 max P.7 mmHg TR max pawel: 255.2 cm/sec LV V1 max: 178.3 cm/sec TR max P.1 mmHg PI end-d pawel: 203.6 cm/sec Med Peak E' Pawel: 6.8 cm/sec Med E/e': 11.4 Lat Peak E' Pawel: 9.7 cm/sec Lat E/e': 8.0 Procedure A complete two-dimensional transthoracic echocardiogram was performed (2D, M-mode, Doppler and color flow Doppler). The patient was in normal sinus rhythm during the exam. Left Ventricle The left ventricle is normal in size. There is mild concentric left ventricular hypertrophy. Left john tricular systolic function is normal. Ejection Fraction = 65%. Grade I diastolic dysfunction, (abnormal relaxa tion pattern). Right Ventricle The right ventricle is normal in size and function. Atria Normal left and right atrial size and function. The atrial septum is aneurysmal. Mitral Valve There is mild mitral valve thickening. There is trace mitral regurgitation. Tricuspid Valve The tricuspid valve is not well visualized, but is grossly normal. There is mild tricuspid regurgitat ion. There is mild pulmonary hypertension. Aortic Valve The aortic valve is normal in structure and function. No hemodynamically significant valvular aortic stenosis. Pulmonic Valve The pulmonic valve is not well seen, but is grossly normal. Mild to moderate pulmonic valvular regurg itation. Great Vessels The aortic root is normal size. Pericardium/Pleura There is no pericardial effusion. Interpretation Summary The left ventricle is normal in size. There is mild concentric left ventricular hypertrophy. Left ventricular systolic function is normal. Grade I diastolic dysfunction, (abnormal relaxation pattern). Normal left and right atrial size and function. The atrial septum is aneurysmal. There is trace mitral regurgitation. There is mild tricuspid regurgitation. There is mild pulmonary hypertension. No hemodynamically significant valvular aortic stenosis. MD Junaid Pulliam 12/28/2017 03:55 PM
--- NOTE | 2017-12-28 15:56 | PN ---
Physical Exam: SUBJECTIVE: Patient seen and examined. Pt. on HD. Pt. says that she left [facility] AMA because they were unsure if they were going to start her on dialysis. Pt. last received dialysis on 12/24/17. Pt. endorses having a BM and being oliguric. OBJECTIVE: Vital Signs Period Temp Pulse Resp BP Sys/Ames Pulse Ox Last 24 Hr 98 F-102.9 F 90-119 12-25 80-178/28-117 95-100 GENERAL: The patient is awake, alert, and fully oriented, lethargic but in no acute distress. HEAD: Normal with no signs of trauma. EYES: sclera anicteric, conjunctiva clear. No ptosis. ENT: Ears normal, nares patent, oropharynx clear without exudates, moist mucous membranes. NECK: Trachea midline, full range of motion, supple. LUNGS: On venti-mask, decreased respirations on right lower lobe, no accessory muscle use. HEART: Regular rate and rhythm, S1, S2 without murmur?- difficult to hear over venti-mask ABDOMEN: Soft, nontender, nondistended, bowel sounds sluggish, no guarding, no rebound EXTREMITIES: 1+ LLE dorsal pedal pulse, no pulse appreciated on right, warm, well-perfused, Left arm AV Fistula in place NEUROLOGICAL: Normal speech, gait not observed. PSYCH: Normal mood, normal affect. SKIN: Anasarca, b/l lower extremities Laboratory Results - last 24 hr 12/27/17 12/27/17 12/27/17 17:34 20:17 23:02 WBC RBC Hgb Hct MCV MCH MCHC RDW Plt Count MPV Sodium Potassium Chloride Carbon Dioxide Anion Gap BUN Creatinine Creat Clearance w eGFR POC Glucometer 441 > 400 Random Glucose Lactic Acid 1.5 Calcium Phosphorus Magnesium Random Vancomycin 12/27/17 12/27/17 12/28/17 23:45 23:48 02:24 WBC RBC Hgb Hct MCV MCH MCHC RDW Plt Count MPV Sodium 131 L Potassium 6.7 H* Chloride 100 Carbon Dioxide 16 L Anion Gap 14 BUN 89 H Creatinine 7.9 H* Creat Clearance w eGFR 6.08 POC Glucometer > 400 Random Glucose 548 H* Lactic Acid 1.2 Calcium 7.4 L Phosphorus Magnesium Random Vancomycin 12/28/17 12/28/17 12/28/17 03:27 04:00 04:00 WBC 19.6 H RBC 3.33 L Hgb 8.6 L Hct 27.9 L MCV 83.7 MCH 25.9 MCHC 30.9 L RDW 17.4 H Plt Count 287 MPV 8.7 Sodium 134 L Potassium 6.1 H* Chloride 101 Carbon Dioxide 16 L Anion Gap 17 H BUN 86 H Creatinine 7.9 H* Creat Clearance w eGFR 6.08 POC Glucometer > 400 Random Glucose 340 H* Lactic Acid Calcium 8.0 L Phosphorus 6.9 H Magnesium 2.3 Random Vancomycin 12/28/17 12/28/17 12/28/17 05:07 06:12 06:20 WBC RBC Hgb Hct MCV MCH MCHC RDW Plt Count MPV Sodium 134 L Potassium 5.7 H Chloride 103 Carbon Dioxide 17 L Anion Gap 14 BUN 92 H Creatinine 8.1 H* Creat Clearance w eGFR 5.91 POC Glucometer 276.01351 192.54670 Random Glucose 154 H Lactic Acid Calcium 7.8 L Phosphorus Magnesium Random Vancomycin 12/28/17 12/28/17 12/28/17 06:50 07:14 09:28 WBC RBC Hgb Hct MCV MCH MCHC RDW Plt Count MPV Sodium Potassium Chloride Carbon Dioxide Anion Gap BUN Creatinine Creat Clearance w eGFR POC Glucometer 129.59082 201.23491 Random Glucose Lactic Acid Calcium Phosphorus Magnesium Random Vancomycin < 0.8 L 12/28/17 12/28/17 12/28/17 11:40 12:52 13:35 WBC 21.0 H RBC 3.33 L Hgb 8.6 L Hct 26.8 L MCV 80.4 MCH 25.9 MCHC 32.3 RDW 17.1 H Plt Count 280 MPV 8.9 Sodium Potassium Chloride Carbon Dioxide Anion Gap BUN 24 H Creatinine 2.7 H Creat Clearance w eGFR POC Glucometer 63.51451 Random Glucose Lactic Acid Calcium Phosphorus Magnesium Random Vancomycin Active Medications Current Medications Albuterol Sulfate (Ventolin 0.083% Nebulizer Soln -) 1 amp NEB RQID [facility] Clonidine (Catapres -) 0.3 mg PO TID [facility] Last Admin: 12/28/17 13:38 Dose: 0.3 mg Gabapentin (Neurontin -) 300 mg PO BID [facility] Heparin Sodium (Porcine) (Heparin -) 5,000 unit SQ BID [facility] Last Admin: 12/28/17 09:58 Dose: 5,000 unit Piperacillin Sod/Tazobactam (Sod 2.25 gm/ Dextrose) 50 mls @ 100 mls/hr IVPB Q8H-IV [facility]; Protocol Last Admin: 12/28/17 09:56 Dose: 100 mls/hr Sodium Chloride (Normal Saline -) 250 mls @ 3,000 mls/hr IV PRN PRN PRN Reason: Hypotension during Dialysis Stop: 12/28/17 20:01 Insulin Human Regular 100 (units/ Sodium Chloride) 100 mls @ 6.35 mls/hr IVPB TITR [facility]; Protocol Last Titration: 12/28/17 09:36 Dose: 0 units/kg/hr, 0 mls/hr Sodium Chloride (Normal Saline -) 1,000 mls @ 30 mls/hr IV ASDIR [facility] Last Admin: 12/28/17 01:00 Dose: 30 mls/hr Dextrose (D5w -) 1,000 mls @ 30 mls/hr IV ASDIR [facility] Last Admin: 12/28/17 07:00 Dose: 30 mls/hr Sodium Chloride (Normal Saline -) 250 mls @ 3,000 mls/hr IV PRN PRN PRN Reason: Hypotension during Dialysis Stop: 12/29/17 07:59 Insulin Aspart (Novolog Vial Sliding Scale -) 1 vial SQ ACHS [facility]; Protocol Last Admin: 12/28/17 09:59 Dose: 6 units Insulin Detemir (Levemir Vial) 17 units SQ BID@0700,2200 [facility] Last Admin: 12/28/17 06:27 Dose: Not Given Labetalol HCl (Normodyne -) 400 mg PO BID [facility] Losartan Potassium (Cozaar -) 100 mg PO DAILY [facility] Oxycodone HCl (Roxicodone -) 10 mg PO Q6H PRN PRN Reason: PAIN LEVEL 6-10 Last Admin: 12/28/17 13:39 Dose: 10 mg ASSESSMENT/PLAN: Patient is a 27 year old female, well known to [facility], with significant past medical history of HD (M,W,F LUE AVF), IDDM, HTN, PVD, Atrial thrombus, Cardiac Arrest, Pneumonia, Right Foot ulcer, non compliance was brought in via EMS with the chief complaints of shortness of breath x 1 day. # Respiratory Acute hypoxic respiratory failure likely secondary to sepsis from pneumonia WBC 17, tachycardic, bibasilar crackles, CXR shows possible pneumonia vs ARDS IV Vancomycin 1gm given post dialysis IV Zosyn 2.25 gm IV Q8H (Renally dosed) ID on board (Dr. Rodrigues) CXR shows RLL consolidation Multiple right rib fractures s/p fall last week CT chest 12/23/17: Multlple partially healed fractures in the right Pain control w oxycodone 10mg Q6H Incentive spirometry # Integumentary Diabetic foot ulcer Sepsis could also be from his wounds. Was recently treated with IV Levaquin and Flagyl for RLE cellulitis and abscess Has Purulent diabetic ulcer 1.5 x 1.3, fowl smelling On IV Zosyn 2.25 gm IV Q8H, ID on board Random Vanc level: <0.8 12/07/17 would culture grew Serratia Marcescens Dr. Dubon and Dr. Carr on board Clavicular lesion CT chest 12/23/17 clavicular lesion suggesting brown tumor Would recommend bone biopsy when stable. # Cardiovascular Hypertension Resume Clonidine today Resume Labetalol and Losartan in the AM Held antihypertensives on ICU admission as BP was low, can restart now that BP is high. # Endocrinology Hyperglycemia vs. DKA vs. HHS- resolving Sugar 192; A; Potassium: 5.7 mEq D/c- Insulin drip, started Levemir 17 units ISS D/c IVf Discussed with Dr. Cassidy # Renal ESRD on HD MWF HD completed today Rpt. BMP shows BUN/Cr. of 24/2.[address] Tavo kruse # Hematology Normocytic anemia 2/2 ESRD Post HD H/H: 8.6/26.8 Transfuse if Hb is <7/Hct <25. Monitor any bleeding. # FEN D/c IVF encourage PO intake Monitor electrolytes and replete as needed Diabetic diet # Prophylaxis For DVT: patient refusing Heparin sq FoR GI: Not indicated # Code Status: Full Code Plan of care explained to the patient. She verbalized understanding. Dispo: We will continue to follow the patient. Thank you for this consultative opportunity. Visit type - Emergency Visit Emergency Visit: Yes ED Registration Date: 12/27/17 Care time: The patient presented to the Emergency Department on the above date and was hospitalized for further evaluation of their emergent condition. - New Patient This patient is new to me today: Yes Date on this admission: 12/28/17 - Critical Care Critical Care patient: No - Discharge Referral [facility]erred to [facility] Med P.C.: No
--- NOTE | 2017-12-28 16:19 | PN ---
Teaching Attending Note Name of Resident: Jeramie Paez ATTENDING PHYSICIAN STATEMENT I saw and evaluated the patient. I reviewed the resident's note and discussed the case with the resident. I agree with the resident's findings and plan as documented. SUBJECTIVE: Patient seen and examined in the ICU. Tachypneic on VM O2. Reports SOB and generalized body aches. Placed on HF NC O2 and WOB noted to improve. Currently on HD. Hemodynamics have been stable. Intake & Output 12/25/17 12/26/17 12/27/17 12/28/17 23:59 23:59 23:59 23:59 Intake Total 250 508.4 Output Total 0 Balance 250 508.4 Weight 152 lb 12.8 oz 151 lb Last Vital Signs Temp Pulse Resp BP Pulse Ox 99.4 F 105 H 18 165/91 99 12/28/17 15:48 12/28/17 15:48 12/28/17 15:48 12/28/17 15:48 12/28/17 13:00 Active Medications Albuterol Sulfate (Ventolin 0.083% Nebulizer Soln -) 1 amp NEB RQID [facility] Clonidine (Catapres -) 0.3 mg PO TID [facility] Last Admin: 12/28/17 13:38 Dose: 0.3 mg Gabapentin (Neurontin -) 300 mg PO BID [facility] Heparin Sodium (Porcine) (Heparin -) 5,000 unit SQ BID [facility] Last Admin: 12/28/17 09:58 Dose: 5,000 unit Piperacillin Sod/Tazobactam (Sod 2.25 gm/ Dextrose) 50 mls @ 100 mls/hr IVPB Q8H-IV [facility]; Protocol Last Admin: 12/28/17 09:56 Dose: 100 mls/hr Sodium Chloride (Normal Saline -) 250 mls @ 3,000 mls/hr IV PRN PRN PRN Reason: Hypotension during Dialysis Stop: 12/28/17 20:01 Insulin Human Regular 100 (units/ Sodium Chloride) 100 mls @ 6.35 mls/hr IVPB TITR [facility]; Protocol Last Titration: 12/28/17 09:36 Dose: 0 units/kg/hr, 0 mls/hr Sodium Chloride (Normal Saline -) 1,000 mls @ 30 mls/hr IV ASDIR [facility] Last Admin: 12/28/17 01:00 Dose: 30 mls/hr Dextrose (D5w -) 1,000 mls @ 30 mls/hr IV ASDIR [facility] Last Admin: 12/28/17 07:00 Dose: 30 mls/hr Sodium Chloride (Normal Saline -) 250 mls @ 3,000 mls/hr IV PRN PRN PRN Reason: Hypotension during Dialysis Stop: 12/29/17 07:59 Insulin Aspart (Novolog Vial Sliding Scale -) 1 vial SQ ACHS [facility]; Protocol Last Admin: 12/28/17 09:59 Dose: 6 units Insulin Detemir (Levemir Vial) 17 units SQ BID@0700,2200 [facility] Last Admin: 12/28/17 06:27 Dose: Not Given Labetalol HCl (Normodyne -) 400 mg PO BID [facility] Losartan Potassium (Cozaar -) 100 mg PO DAILY [facility] Oxycodone HCl (Roxicodone -) 10 mg PO Q6H PRN PRN Reason: PAIN LEVEL 6-10 Last Admin: 12/28/17 13:39 Dose: 10 mg GENERAL: Awake, alert, and oriented. Moderately tachypneic at rest HEAD: Normal with no signs of trauma. EYES: Puffy eyes, pallor +, no icterus. EARS, NOSE, THROAT: Ears normal. Moist mucous membranes. NECK: Supple. LUNGS: Tachypenic, coarse cackles Right > Left. No wheezes. (+) accessory muscle use. HEART: Tachycardic, Regular rate and rhythm, normal S1 and S2 with systolic murmur. ABDOMEN: Soft, nontender,no organomegaly. MUSCULOSKELETAL: Normal range of motion at all joints. No bony deformities or tenderness. No CVA tenderness. UPPER EXTREMITIES: LUE AVF functioning, 2+ pulses, warm. LOWER EXTREMITIES: Edematous with multiple areas of dressed wounds. NEUROLOGICAL: Non-focal. PSYCHIATRIC: Cooperative. SKIN: Warm, multiple wounds/ulcers. Laboratory Results - last 24 hr 12/27/17 12/27/17 12/27/17 17:34 20:17 23:02 WBC RBC Hgb Hct MCV MCH MCHC RDW Plt Count MPV Sodium Potassium Chloride Carbon Dioxide Anion Gap BUN Creatinine Creat Clearance w eGFR POC Glucometer 441 > 400 Random Glucose Lactic Acid 1.5 Calcium Phosphorus Magnesium Random Vancomycin 12/27/17 12/27/17 12/28/17 23:45 23:48 02:24 WBC RBC Hgb Hct MCV MCH MCHC RDW Plt Count MPV Sodium 131 L Potassium 6.7 H* Chloride 100 Carbon Dioxide 16 L Anion Gap 14 BUN 89 H Creatinine 7.9 H* Creat Clearance w eGFR 6.08 POC Glucometer > 400 Random Glucose 548 H* Lactic Acid 1.2 Calcium 7.4 L Phosphorus Magnesium Random Vancomycin 12/28/17 12/28/17 12/28/17 03:27 04:00 04:00 WBC 19.6 H RBC 3.33 L Hgb 8.6 L Hct 27.9 L MCV 83.7 MCH 25.9 MCHC 30.9 L RDW 17.4 H Plt Count 287 MPV 8.7 Sodium 134 L Potassium 6.1 H* Chloride 101 Carbon Dioxide 16 L Anion Gap 17 H BUN 86 H Creatinine 7.9 H* Creat Clearance w eGFR 6.08 POC Glucometer > 400 Random Glucose 340 H* Lactic Acid Calcium 8.0 L Phosphorus 6.9 H Magnesium 2.3 Random Vancomycin 12/28/17 12/28/17 12/28/17 05:07 06:12 06:20 WBC RBC Hgb Hct MCV MCH MCHC RDW Plt Count MPV Sodium 134 L Potassium 5.7 H Chloride 103 Carbon Dioxide 17 L Anion Gap 14 BUN 92 H Creatinine 8.1 H* Creat Clearance w eGFR 5.91 POC Glucometer 276.86841 192.13060 Random Glucose 154 H Lactic Acid Calcium 7.8 L Phosphorus Magnesium Random Vancomycin 12/28/17 12/28/17 12/28/17 06:50 07:14 09:28 WBC RBC Hgb Hct MCV MCH MCHC RDW Plt Count MPV Sodium Potassium Chloride Carbon Dioxide Anion Gap BUN Creatinine Creat Clearance w eGFR POC Glucometer 129.08469 201.43898 Random Glucose Lactic Acid Calcium Phosphorus Magnesium Random Vancomycin < 0.8 L 12/28/17 12/28/17 12/28/17 11:40 12:52 13:35 WBC 21.0 H RBC 3.33 L Hgb 8.6 L Hct 26.8 L MCV 80.4 MCH 25.9 MCHC 32.3 RDW 17.1 H Plt Count 280 MPV 8.9 Sodium Potassium Chloride Carbon Dioxide Anion Gap BUN 24 H Creatinine 2.7 H Creat Clearance w eGFR POC Glucometer 63.87352 Random Glucose Lactic Acid Calcium Phosphorus Magnesium Random Vancomycin IMP: Acute Respiratory failure requiring HF NC O2 ESRD on HD (M,W,F LUE AVF) IDDM HTN PVD Atrial thrombus Cardiac Arrest by history Suspected Pneumonia Right Foot ulcer History of Non-compliance Rib Fracture Do not suspect ARDS at this time Hyperglycemia: do not suspect DKA HF NC O2 support HD for volume removal Aspiration precautions ABX per ID BD TX Follow cultures Follow CXR Pain control Incentive spirometry Monitor off steroids for now due to significant hyperglycemia Insulin drip to maintain blood glucose 140 to 180: noted Endo consult called ICU monitoring for tenuous respiratory status Dr Ballesteros Critical care time spent in reviewing chart, evaluating patient and formulating plan - 36 minutes.
--- NOTE | 2017-12-28 16:36 | EKG ---
Test Reason : Blood Pressure : / mmHG Vent. Rate : 108 BPM Atrial Rate : 108 BPM P-R Int : 182 ms QRS Dur : 080 ms QT Int : 348 ms P-R-T Axes : 012 095 026 degrees QTc Int : 466 ms SINUS TACHYCARDIA RIGHTWARD AXIS CANNOT RULE OUT ANTERIOR INFARCT (CITED ON OR BEFORE 27-DEC-2017) ABNORMAL ECG WHEN COMPARED WITH ECG OF 27-DEC-2017 12:28, NO SIGNIFICANT CHANGE WAS FOUND Confirmed by MD Shasha, Junaid ([id number]) on 12/28/2017 4:36:35 PM Referred By: Confirmed By:Junaid Pulliam MD
--- NOTE | 2017-12-28 20:03 | PN ---
Progress Note, Physician History of Present Illness: feeling good - Current Medication List Current Medications: Active Medications Albuterol Sulfate (Ventolin 0.083% Nebulizer Soln -) 1 amp NEB RQID [facility] Last Admin: 12/28/17 17:00 Dose: 1 amp Clonidine (Catapres -) 0.3 mg PO TID [facility] Last Admin: 12/28/17 13:38 Dose: 0.3 mg Gabapentin (Neurontin -) 300 mg PO BID [facility] Heparin Sodium (Porcine) (Heparin -) 5,000 unit SQ BID [facility] Last Admin: 12/28/17 09:58 Dose: 5,000 unit Piperacillin Sod/Tazobactam (Sod 2.25 gm/ Dextrose) 50 mls @ 100 mls/hr IVPB Q8H-IV [facility]; Protocol Last Admin: 12/28/17 17:33 Dose: 100 mls/hr Insulin Human Regular 100 (units/ Sodium Chloride) 100 mls @ 6.35 mls/hr IVPB TITR [facility]; Protocol Last Titration: 12/28/17 09:36 Dose: 0 units/kg/hr, 0 mls/hr Sodium Chloride (Normal Saline -) 1,000 mls @ 30 mls/hr IV ASDIR [facility] Last Admin: 12/28/17 01:00 Dose: 30 mls/hr Dextrose (D5w -) 1,000 mls @ 30 mls/hr IV ASDIR [facility] Last Admin: 12/28/17 07:00 Dose: 30 mls/hr Sodium Chloride (Normal Saline -) 250 mls @ 3,000 mls/hr IV PRN PRN PRN Reason: Hypotension during Dialysis Stop: 12/29/17 07:59 Insulin Aspart (Novolog Vial Sliding Scale -) 1 vial SQ ACHS [facility]; Protocol Last Admin: 12/28/17 17:33 Dose: 4 units Insulin Detemir (Levemir Vial) 17 units SQ BID@0700,2200 [facility] Last Admin: 12/28/17 06:27 Dose: Not Given Labetalol HCl (Normodyne -) 400 mg PO BID [facility] Losartan Potassium (Cozaar -) 100 mg PO DAILY [facility] Oxycodone HCl (Roxicodone -) 10 mg PO Q6H PRN PRN Reason: PAIN LEVEL 6-10 Last Admin: 12/28/17 13:39 Dose: 10 mg - Objective Vital Signs: Vital Signs Temperature 99.0 F 12/28/17 18:58 Pulse Rate 91 H 12/28/17 18:58 Respiratory Rate 14 12/28/17 18:58 Blood Pressure 144/88 12/28/17 18:58 O2 Sat by Pulse Oximetry (%) 99 12/28/17 16:00 Constitutional: Yes: No Distress HENT: Yes: Atraumatic Neck: Yes: Supple Cardiovascular: Yes: Regular Rate and Rhythm Respiratory: Yes: CTA Bilaterally Gastrointestinal: Yes: Normal Bowel Sounds Extremities: Yes: Other (ulcers rlex/both feet) Edema: Yes Edema: LLE: 2+, RLE: 2+ Neurological: Yes: Alert, Oriented Labs: CBC, BMP 12/28/17 13:35 12/28/17 11:40 Problem List - Problems (1) Fracture of ribs, multiple, closed Assessment/Plan: prn pain meds Code(s): S22.49XA - MULTIPLE FRACTURES OF RIBS, UNSP SIDE, INIT FOR CLOS FX Qualifiers: Encounter type: subsequent encounter Laterality: right Fracture healing: with routine healing Qualified Code(s): S22.41XD - Multiple fractures of ribs , right side, subsequent encounter for fracture with routine healing (2) Pneumonia Assessment/Plan: on abx per id doing better Code(s): J18.9 - PNEUMONIA, UNSPECIFIED ORGANISM Qualifiers: Pneumonia type: due to unspecified organism Laterality: bilateral Lung location: lower lobe of lung Qualified Code(s): J18.1 - Lobar pneumonia, unspecified organism (3) ESRD (end stage renal disease) on dialysis Assessment/Plan: on hd renal on board Code(s): N18.6 - END STAGE RENAL DISEASE; Z99.2 - DEPENDENCE ON RENAL DIALYSIS (4) Diabetes mellitus, insulin dependent (IDDM), uncontrolled Assessment/Plan: on insulin bgms Code(s): E10.65 - TYPE 1 DIABETES MELLITUS WITH HYPERGLYCEMIA Assessment/Plan cc time 35 min
[2017-12-28] MEDS ORDERED: QUEtiapine FUMARATE 50 MG TABLET PO SCH (22:00)
[2017-12-28] MEDS: GABAPENTIN 300 MG CAPSULE (FP) PO SCH (22:07)
[2017-12-29] MEDS ORDERED: PIPERACILLIN/TAZOBACTAM 2.25 GM VIAL IVPB ONE ×3 (00:42→17:01)
[2017-12-29] MEDS ORDERED: DEXTROSE 5%-WATER - 50 ML IVPB ONE ×3 (00:42→17:01)
[2017-12-29] MEDS: PIPERACILLIN/TAZOB 2.25 GM 2.25 GM in DEXTROSE 5%-WATER - 50 ML IVPB SCH ×3 (01:22→17:19)
[2017-12-29] MEDS: SODIUM CHLORIDE 1,000 ML IV SCH (01:22)
[2017-12-29] MEDS: oxyCODONE HCL 5 MG TABLET PO PRN ×3 (02:41→20:07)
[2017-12-29 06:32] LABS: BASO % 0.6 % (0-2.0); EOS % 2.2 % (0-4.5); HEMATOCRIT 27.9 % (32.4-45.2); HEMOGLOBIN 8.6 GM/dL (10.7-15.3); LYMPH % 4.7 % (8-40); MCH 25.2 pg (25.7-33.7); MCHC 30.9 g/dl (32.0-36.0); MEAN CELL VOLUME 81.5 fl (80-96); MEAN PLT VOLUME 8.6 fl (7.5-11.1); MONO % 8.6 % (3.8-10.2); NEUT % 83.9 % (42.8-82.8); PLATELET COUNT 256 K/MM3 (134-434); RBC 3.42 M/mm3 (3.60-5.2); RDW 17.6 % (11.6-15.6)
[2017-12-29] MEDS: INSULIN SLIDING SCALE (NOVOLOG) 1 VIAL SQ SCH ×4 (06:41→21:39)
[2017-12-29] MEDS: DEXTROSE 5%-WATER - 1,000 ML IV SCH (06:41)
[2017-12-29] MEDS: cloNIDine HCL 0.1 MG TABLET PO SCH ×4 (06:41→21:38)
[2017-12-29] MEDS: INSULIN (LEVEMIR) 100 UNITS/ML UNITS SQ SCH ×2 (06:42→21:40)
[2017-12-29] MEDS ORDERED: DEXTROSE 5%-WATER - 1,000 ML IV SCH (08:00)
[2017-12-29] MEDS ORDERED: LABETALOL HCL 200 MG TABLET (FP) PO SCH (08:00)
[2017-12-29] MEDS: ALBUTEROL SO4 0.083% IH SOL 2.5 MG/3 ML VIAL.NEB. NEB SCH ×4 (08:00→20:35)
[2017-12-29 08:22] LABS: ALBUMIN 2.8 g/dl (3.4-5.0); ALK PHOS 628 U/L (45-117); ANION GAP 14 MMOL/L (8-16); BILIRUBIN,TOTAL 0.4 mg/dL (0.2-1); BLOOD UREA NITROGEN 38 mg/dL (7-18); CALCIUM 8.9 mg/dL (8.5-10.1); CHLORIDE 97 mmol/L (98-107); CO2 26 mmol/L (21-32); CREATININE 4.8 mg/dL (0.55-1.3); GLUCOSE,RANDOM 77 mg/dL (74-106); MAGNESIUM 2.1 mg/dL (1.8-2.4); POTASSIUM 3.9 mmol/L (3.5-5.1); SGOT/AST 15 U/L (15-37); SGPT/ALT 12 U/L (13-61); SODIUM 138 mmol/L (136-145); TOT PROT 7.6 g/dl (6.4-8.2)
[2017-12-29] MEDS: GABAPENTIN 300 MG CAPSULE (FP) PO SCH ×2 (09:34→21:39)
[2017-12-29] MEDS: HEPARIN NA (PORCINE) 5,000 UNITS/ML 1ML VIAL SQ SCH ×4 (09:35→22:09)
[2017-12-29] MEDS ORDERED: LOSARTAN POTASSIUM 50 MG TABLET (FP) PO SCH (10:00)
[2017-12-29] MEDS ORDERED: VANCOMYCIN 1 GM PREMIX - 1 GM/200 ML BAG IVPB ONE (11:55)
--- NOTE | 2017-12-29 12:36 | CONSULT ---
Consult Consult Specialty:: endocrine Referred by:: emily Reason for Consultation:: dka - History of Present Illness Chief Complaint: weakness and lethargy History of Present Illness: 27yfemale iddm,esrd,diabetic leg ulcers,arterial thrombus,admitted with dka, dehydration - History Source History Provided By: Patient, Family Member - Past Medical History Cardio/Vascular: Yes: CHF, Deep Vein Thrombosis, HTN, Other (thrombus in atrium , PE, DVT) Pulmonary: No: Sleep Apnea Renal/: Yes: Renal Failure, Hemodialysis ...LMP: 05/13/17 ...LMP Comment: pt states she has not having period for years Infectious Disease: Yes: MRSA, Other Endocrine: Yes: Diabetes Mellitus (type 1 on insulin pump) Additional Medical History: DVT, PE on coumadin - Past Surgical History Past Surgical History: Yes: AV Fistula/Graft (Right arm) - Alcohol/Substance Use Hx Alcohol Use: No History of Substance Use: reports: None - Smoking History Smoking history: Never smoked Have you smoked in the past 12 months: No Aproximately how many cigarettes per day: 10 If you are a former smoker, when did you quit?: couple months ago - Social History Usual Living Arrangement: With Parent ADL: Independent Occupation: unemployed History of Recent Travel: No Home Medications - Allergies Allergies/Adverse Reactions: Allergies Allergy/AdvReac Type Severity Reaction Status Date / Time lactose AdvReac Verified 12/27/17 12:22 - Home Medications Home Medications: Ambulatory Orders cloNIDine HCL [Catapres -] 0.3 mg PO TID 06/28/17 Collagenase Clostridium Hist. [Santyl -] 1 applic TP DAILY #1 tube 10/01/17 Insulin Detemir [Levemir Flextouch] 17 unit SQ BID #1 insuln.pen 10/01/17 Insulin Lispro [Humalog Kwikpen U-100] 100 unit SQ ASDIR #10 insuln.pen oxyCODONE HCL [Roxicodone -] 10 mg PO Q6H PRN #20 tablet MDD 4 10/29/17 Oxycodone HCl 10 mg PO Q6H PRN #15 tablet MDD 4 11/12/17 Albuterol 0.083% Nebulizer No [Ventolin 0.083% Nebulizer Soln -] 1 amp NEB Q6H #10 amp 12/02/17 Nebulizer Accessories [A.i.r.s. Nebulizer] 1 each PRN #1 kit 12/02/17 Gabapentin [Neurontin -] 300 mg PO BID 12/07/17 Insulin (Levemir) [Levemir Vial] 22 units SQ BIDI units 12/13/17 Insulin Sliding Scale [Novolog Vial Sliding Scale -] 1 vial SQ ACHS units 12/13 Labetalol HCl [Normodyne -] 400 mg PO BID tablet 12/13/17 Losartan Potassium [Cozaar -] 100 mg PO DAILY tablet 12/13/17 Family Disease History - Family Disease History Family Disease History: Diabetes: Grandparent (HTN), Heart Disease: Grandparent , Other: Father (unknown), Mother (HTN) Review of Systems - Review of Systems Constitutional: reports: Lethargy Eyes: reports: Blurred Vision HENT: reports: Difficult Swallowing Neck: reports: No Symptoms Cardiovascular: reports: Palpitations, Shortness of Breath Respiratory: reports: No Symptoms Gastrointestinal: reports: Bloating, Constipation Genitourinary: reports: No Symptoms Breasts: reports: No Symptoms Reported Musculoskeletal: reports: Muscle Pain, Muscle Cramps, Muscle Weakness Integumentary: reports: Blister Neurological: reports: Tremors, Weakness Endocrine: reports: Unexplained Weight Loss Hematology/Lymphatic: reports: No Symptoms Physical Exam Vital Signs: Vital Signs Temperature 99 F 12/29/17 10:00 Pulse Rate 96 H 12/29/17 12:00 Respiratory Rate 18 12/29/17 12:00 Blood Pressure 145/105 H 12/29/17 10:00 O2 Sat by Pulse Oximetry (%) 94 L 12/29/17 11:49 Constitutional: Yes: Anxious Eyes: Yes: EOM Intact HENT: Yes: Normocephalic Neck: Yes: Trachea Midline Cardiovascular: Yes: Pulse Irregular Gastrointestinal: Yes: Soft, Tenderness, Epigastrium ...Rectal Exam: Yes: Deferred Musculoskeletal: Yes: Joint Swelling, Muscle Weakness Edema: Yes Edema: LLE: 2+, RLE: 2+ Integumentary: Yes: Onychomycosis, Venous Stasis Changes Neurological: Yes: Alert, Oriented, Weakness Labs: CBC, BMP 12/29/17 05:30 12/29/17 05:30 Problem List - Problems (1) DKA, type 1 Code(s): E10.10 - TYPE 1 DIABETES MELLITUS WITH KETOACIDOSIS WITHOUT COMA Assessment/Plan Current Active Problems DKA, type 1 (Acute) Fracture of ribs, multiple, closed (Acute) Pneumonia (Acute) Ulcer of right leg (Acute) ESRD (end stage renal disease) on dialysis (Chronic) Abnormal Lab Results 12/28/17 12/28/17 12/29/17 11:40 13:35 05:30 WBC 21.0 H 16.0 H RBC 3.33 L 3.42 L Hgb 8.6 L 8.6 L Hct 26.8 L 27.9 L MCH 25.2 L MCHC 30.9 L RDW 17.1 H 17.6 H Absolute Neuts (auto) 13.4 H Neutrophils % 83.9 H Lymphocytes % 4.7 L D Chloride BUN 24 H Creatinine 2.7 H Phosphorus ALT Alkaline Phosphatase Albumin 12/29/17 05:30 WBC RBC Hgb Hct MCH MCHC RDW Absolute Neuts (auto) Neutrophils % Lymphocytes % Chloride 97 L BUN 38 H Creatinine 4.8 H Phosphorus 6.0 H ALT 12 L Alkaline Phosphatase 628 H Albumin 2.8 L Laboratory Results - last 24 hr 12/27/17 12/28/17 12/28/17 23:48 11:40 12:52 WBC RBC Hgb Hct MCV MCH MCHC RDW Plt Count MPV Absolute Neuts (auto) Neutrophils % Lymphocytes % Monocytes % Eosinophils % Basophils % Nucleated RBC % Sodium Potassium Chloride Carbon Dioxide Anion Gap BUN 24 H Creatinine 2.7 H Creat Clearance w eGFR POC Glucometer 63.59392 Random Glucose Calcium Phosphorus Magnesium Total Bilirubin AST ALT Alkaline Phosphatase Total Protein Albumin Hep C Ab Diagnostic <0.1 Liver Fibrosis Interp 12/28/17 12/28/17 12/28/17 13:35 17:35 21:12 WBC 21.0 H RBC 3.33 L Hgb 8.6 L Hct 26.8 L MCV 80.4 MCH 25.9 MCHC 32.3 RDW 17.1 H Plt Count 280 MPV 8.9 Absolute Neuts (auto) Neutrophils % Lymphocytes % Monocytes % Eosinophils % Basophils % Nucleated RBC % Sodium Potassium Chloride Carbon Dioxide Anion Gap BUN Creatinine Creat Clearance w eGFR POC Glucometer 155.98930 154.47189 Random Glucose Calcium Phosphorus Magnesium Total Bilirubin AST ALT Alkaline Phosphatase Total Protein Albumin Hep C Ab Diagnostic Liver Fibrosis Interp 12/29/17 12/29/17 12/29/17 05:30 05:30 06:14 WBC 16.0 H RBC 3.42 L Hgb 8.6 L Hct 27.9 L MCV 81.5 MCH 25.2 L MCHC 30.9 L RDW 17.6 H Plt Count 256 MPV 8.6 Absolute Neuts (auto) 13.4 H Neutrophils % 83.9 H Lymphocytes % 4.7 L D Monocytes % 8.6 Eosinophils % 2.2 Basophils % 0.6 Nucleated RBC % 0 Sodium 138 Potassium 3.9 Chloride 97 L Carbon Dioxide 26 Anion Gap 14 BUN 38 H Creatinine 4.8 H Creat Clearance w eGFR 10.80 POC Glucometer 84.61889 Random Glucose 77 Calcium 8.9 Phosphorus 6.0 H Magnesium 2.1 Total Bilirubin 0.4 AST 15 ALT 12 L Alkaline Phosphatase 628 H Total Protein 7.6 Albumin 2.8 L Hep C Ab Diagnostic Liver Fibrosis Interp plan: bgm qid novolog insulin cgms unit as outpatient levemir to resume 10 units bid advance diet and dose of insulin levemir as appetite improves
--- NOTE | 2017-12-29 13:28 | PN ---
Teaching Attending Note Name of Resident: Jeramie Paez ATTENDING PHYSICIAN STATEMENT I saw and evaluated the patient. I reviewed the resident's note and discussed the case with the resident. I agree with the resident's findings and plan as documented. SUBJECTIVE: Pt seen and examined in the ICU. Remains on high flow O2. States breathing is improving. +nonproductive cough. OBJECTIVE: Vital Signs Period Temp Pulse Resp BP Sys/Ames Pulse Ox Last 24 Hr 99 F-99.4 F 88-105 14-20 104-198/63-114 94-100 Intake & Output 12/26/17 12/27/17 12/28/17 12/29/17 23:59 23:59 23:59 23:59 Intake Total 250 1468.4 300 Output Total 0 0 Balance 250 1468.4 300 Weight 69.309 kg 68.492 kg 71.923 kg Gen: NAD on HFOT Heart: RRR Lung: decreased breath sounds at the bases Abd: soft, nontender Ext: + edema CBC, BMP 12/29/17 05:30 12/29/17 05:30 Active Medications Albuterol Sulfate (Ventolin 0.083% Nebulizer Soln -) 1 amp NEB RQID [facility] Last Admin: 12/29/17 12:34 Dose: 1 amp Clonidine (Catapres -) 0.3 mg PO TID [facility] Last Admin: 12/29/17 06:41 Dose: 0.3 mg Gabapentin (Neurontin -) 300 mg PO BID [facility] Last Admin: 12/29/17 09:34 Dose: 300 mg Heparin Sodium (Porcine) (Heparin -) 5,000 unit SQ BID [facility] Last Admin: 12/29/17 11:34 Dose: Not Given Piperacillin Sod/Tazobactam (Sod 2.25 gm/ Dextrose) 50 mls @ 100 mls/hr IVPB Q8H-IV [facility]; Protocol Last Admin: 12/29/17 09:33 Dose: 100 mls/hr Insulin Human Regular 100 (units/ Sodium Chloride) 100 mls @ 6.35 mls/hr IVPB TITR [facility]; Protocol Last Admin: 12/28/17 22:07 Dose: Not Given Sodium Chloride (Normal Saline -) 1,000 mls @ 30 mls/hr IV ASDIR [facility] Last Admin: 12/29/17 01:22 Dose: Not Given Dextrose (D5w -) 1,000 mls @ 42 mls/hr IV ASDIR [facility] Last Admin: 12/29/17 09:35 Dose: 42 mls/hr Insulin Aspart (Novolog Vial Sliding Scale -) 1 vial SQ ACHS [facility]; Protocol Insulin Detemir (Levemir Vial) 12 units SQ BID@0700,2200 [facility] Labetalol HCl (Normodyne -) 400 mg PO BID [facility] Last Admin: 12/29/17 08:12 Dose: 400 mg Losartan Potassium (Cozaar -) 100 mg PO DAILY [facility] Last Admin: 12/29/17 09:35 Dose: 100 mg Oxycodone HCl (Roxicodone -) 10 mg PO Q6H PRN PRN Reason: PAIN LEVEL 6-10 Last Admin: 12/29/17 09:34 Dose: 10 mg ASSESSMENT AND PLAN: Acute Hypoxic Respiratory Failure Pneumonia Sepsis Diabetic Ketoacidosis improving ESRD on HD h/o LA Thrombus HTN - continue antibiotics - taper off HFOT, keep SpO2 >90% - glucose control - inhaled bronchodilators - HD per renal - PO as tolerated - DVT prophylaxis
--- NOTE | 2017-12-29 13:34 | PN ---
Physical Exam: SUBJECTIVE: Patient seen and examined. Pt. had a blood glucose of 54 this morning after eating a sandwich and drinking a cup of juice. Pt. given D5W and then stopped. Repeat blood glucose is 140. Pt. denies any chest pain, worsening shortness of breath, abdominal pain, nausea or vomiting. Pt. on High-Flow nasal cannula, attempted to titrate down to 20L flow on 30% Fio2, Pt. desaturated to 80%, increased Flow 25L and 30% FiO2 with good response. Pt. refusing labetalol anti-hypertensives at this time. OBJECTIVE: Vital Signs Period Temp Pulse Resp BP Sys/Ames Pulse Ox Last 24 Hr 99 F-99.6 F 88-105 14-20 100-198/57-114 94-100 GENERAL: The patient is awake, alert, and fully oriented, in no acute distress. EYES: Decreased edema around the eyes, sclera anicteric, conjunctiva clear. No ptosis. ENT: Ears normal, nares patent, moist mucous membranes. LUNGS: Mild crackles in middle right lung, decreased respiration in lower right lung HEART: Regular rate and rhythm, S1, S2 with murmur? ABDOMEN: Soft, nontender, nondistended, normoactive bowel sounds, no guarding, no rebound EXTREMITIES: 1+ right dorsal pedal pulse, no appreciable left dorsal pedal pulse , 2 + left radial pulse, warm, well-perfused, anasarca NEUROLOGICAL: Normal speech, gait not observed. PSYCH: Normal mood, normal affect. SKIN: Anasarca in lower extremities Laboratory Results - last 24 hr 12/27/17 12/28/17 12/28/17 23:48 11:40 13:35 WBC 21.0 H RBC 3.33 L Hgb 8.6 L Hct 26.8 L MCV 80.4 MCH 25.9 MCHC 32.3 RDW 17.1 H Plt Count 280 MPV 8.9 Absolute Neuts (auto) Neutrophils % Lymphocytes % Monocytes % Eosinophils % Basophils % Nucleated RBC % Sodium Potassium Chloride Carbon Dioxide Anion Gap BUN 24 H Creatinine 2.7 H Creat Clearance w eGFR POC Glucometer Random Glucose Calcium Phosphorus Magnesium Total Bilirubin AST ALT Alkaline Phosphatase Total Protein Albumin Hep C Ab Diagnostic <0.1 Liver Fibrosis Interp 12/28/17 12/28/17 12/29/17 17:35 21:12 05:30 WBC 16.0 H RBC 3.42 L Hgb 8.6 L Hct 27.9 L MCV 81.5 MCH 25.2 L MCHC 30.9 L RDW 17.6 H Plt Count 256 MPV 8.6 Absolute Neuts (auto) 13.4 H Neutrophils % 83.9 H Lymphocytes % 4.7 L D Monocytes % 8.6 Eosinophils % 2.2 Basophils % 0.6 Nucleated RBC % 0 Sodium Potassium Chloride Carbon Dioxide Anion Gap BUN Creatinine Creat Clearance w eGFR POC Glucometer 155.24413 154.36101 Random Glucose Calcium Phosphorus Magnesium Total Bilirubin AST ALT Alkaline Phosphatase Total Protein Albumin Hep C Ab Diagnostic Liver Fibrosis Interp 12/29/17 12/29/17 12/29/17 05:30 06:14 07:52 WBC RBC Hgb Hct MCV MCH MCHC RDW Plt Count MPV Absolute Neuts (auto) Neutrophils % Lymphocytes % Monocytes % Eosinophils % Basophils % Nucleated RBC % Sodium 138 Potassium 3.9 Chloride 97 L Carbon Dioxide 26 Anion Gap 14 BUN 38 H Creatinine 4.8 H Creat Clearance w eGFR 10.80 POC Glucometer 84.64017 54.69107 Random Glucose 77 Calcium 8.9 Phosphorus 6.0 H Magnesium 2.1 Total Bilirubin 0.4 AST 15 ALT 12 L Alkaline Phosphatase 628 H Total Protein 7.6 Albumin 2.8 L Hep C Ab Diagnostic Liver Fibrosis Interp 12/29/17 12/29/17 08:37 11:37 WBC RBC Hgb Hct MCV MCH MCHC RDW Plt Count MPV Absolute Neuts (auto) Neutrophils % Lymphocytes % Monocytes % Eosinophils % Basophils % Nucleated RBC % Sodium Potassium Chloride Carbon Dioxide Anion Gap BUN Creatinine Creat Clearance w eGFR POC Glucometer 140.23354 118.72907 Random Glucose Calcium Phosphorus Magnesium Total Bilirubin AST ALT Alkaline Phosphatase Total Protein Albumin Hep C Ab Diagnostic Liver Fibrosis Interp Active Medications Current Medications Albuterol Sulfate (Ventolin 0.083% Nebulizer Soln -) 1 amp NEB RQID [facility] Last Admin: 12/29/17 12:34 Dose: 1 amp Clonidine (Catapres -) 0.3 mg PO TID [facility] Last Admin: 12/29/17 06:41 Dose: 0.3 mg Gabapentin (Neurontin -) 300 mg PO BID [facility] Last Admin: 12/29/17 09:34 Dose: 300 mg Heparin Sodium (Porcine) (Heparin -) 5,000 unit SQ BID [facility] Last Admin: 12/29/17 11:34 Dose: Not Given Piperacillin Sod/Tazobactam (Sod 2.25 gm/ Dextrose) 50 mls @ 100 mls/hr IVPB Q8H-IV [facility]; Protocol Last Admin: 12/29/17 09:33 Dose: 100 mls/hr Insulin Human Regular 100 (units/ Sodium Chloride) 100 mls @ 6.35 mls/hr IVPB TITR [facility]; Protocol Last Admin: 12/28/17 22:07 Dose: Not Given Sodium Chloride (Normal Saline -) 1,000 mls @ 30 mls/hr IV ASDIR [facility] Last Admin: 12/29/17 01:22 Dose: Not Given Dextrose (D5w -) 1,000 mls @ 42 mls/hr IV ASDIR [facility] Last Admin: 12/29/17 09:35 Dose: 42 mls/hr Insulin Aspart (Novolog Vial Sliding Scale -) 1 vial SQ ACHS [facility]; Protocol Insulin Detemir (Levemir Vial) 12 units SQ BID@0700,2200 [facility] Labetalol HCl (Normodyne -) 400 mg PO BID [facility] Last Admin: 12/29/17 08:12 Dose: 400 mg Losartan Potassium (Cozaar -) 100 mg PO DAILY [facility] Last Admin: 12/29/17 09:35 Dose: 100 mg Oxycodone HCl (Roxicodone -) 10 mg PO Q6H PRN PRN Reason: PAIN LEVEL 6-10 Last Admin: 12/29/17 09:34 Dose: 10 mg ASSESSMENT/PLAN: Patient is a 27 year old female, well known to [facility], with significant past medical history of HD (M,W,F LUE AVF), IDDM, HTN, PVD, Atrial thrombus, Cardiac Arrest, Pneumonia, Right Foot ulcer, non compliance was brought in via EMS with the chief complaints of shortness of breath x 1 day. # Respiratory -Acute hypoxic respiratory failure likely secondary to sepsis from pneumonia WBC 17, tachycardic, bibasilar crackles, CXR shows possible pneumonia vs ARDS D/C Vancomycin IV Zosyn 2.25 gm IV Q8H (Renally dosed) ID on board (Dr. Rodrigues) CXR shows RLL consolidation -Multiple right rib fractures s/p fall last week CT chest 9/20/18: Multlple partially healed fractures in the right Pain control w/ oxycodone 10mg Q6H Incentive spirometry 10x/hour # Integumentary -Diabetic foot ulcer Sepsis could also be from his wounds. Was recently treated with IV Levaquin and Flagyl for RLE cellulitis and abscess Has Purulent diabetic ulcer 1.5 x 1.3, fowl smelling On IV Zosyn 2.25 gm IV Q8H, ID on board 12/07/17 wound culture grew Serratia Marcescens Dr. Dubon and Dr. Carr on board- C/w daily santyl to wounds then iodoform packing, will apply wound vac at some point in the future once wounds look clean enough. -Clavicular lesion CT chest 12/23/17 clavicular lesion suggesting brown tumor? Would recommend bone biopsy when stable. # Cardiovascular -Hypertension Echo(12/28/17) appreciated: EF: 65%, Mild concentric LVH-Grade 1, mild TR, trace MR, LA and RA nml size and fxn., mild pulmonary HTN, C/w Clonidine C/w Labetalol and Losartan in the AM with holding parameters Held antihypertensives on ICU admission as BP was low, can restart now that BP is high. # Endocrinology -Hyperglycemia vs. DKA vs. HHS- resolved C/w Levemir 12 units BID, titrating up as needed based on PO intake D/c- Insulin drip ISS D/c IVf Endocrine consult appreciate(Dr. Cassidy) # Renal -ESRD on HD MWF HD completed yesterday BMP shows BUN/Cr. of 38/4.[address] Vo appreciated # Hematology -Normocytic anemia 2/2 ESRD H/H: 8.6/27.9 (12/29/17) Transfuse if Hb is <7/Hct <25. Monitor for any bleeding. # FEN D/c IVF encourage PO intake Monitor electrolytes and replete as needed Diabetic diet # Prophylaxis For DVT: Patient refused Heparin sq today FoR GI: Not indicated # Code Status: Full Code Plan of care explained to the patient. She verbalized understanding. Dispo: We will continue to follow the patient. Thank you for this consultative opportunity. Visit type - Emergency Visit Emergency Visit: Yes ED Registration Date: 12/27/17 Care time: The patient presented to the Emergency Department on the above date and was hospitalized for further evaluation of their emergent condition. - New Patient This patient is new to me today: No - Critical Care Critical Care patient: No - Discharge Referral Referred to [facility] Med P.C.: No
--- NOTE | 2017-12-29 13:41 | PN ---
Progress Note, Physician History of Present Illness: Dyspnea improving on HFO2, non-productive cough. - Current Medication List Current Medications: Active Medications Albuterol Sulfate (Ventolin 0.083% Nebulizer Soln -) 1 amp NEB RQID [facility] [place] Last Admin: 12/29/17 12:34 Dose: 1 amp Clonidine (Catapres -) 0.3 mg PO TID [facility] Last Admin: 12/29/17 06:41 Dose: 0.3 mg Gabapentin (Neurontin -) 300 mg PO BID [facility] Last Admin: 12/29/17 09:34 Dose: 300 mg Heparin Sodium (Porcine) (Heparin -) 5,000 unit SQ BID [facility] Last Admin: 12/29/17 11:34 Dose: Not Given Piperacillin Sod/Tazobactam (Sod 2.25 gm/ Dextrose) 50 mls @ 100 mls/hr IVPB Q8H-IV [facility] [place]; Protocol Last Admin: 12/29/17 09:33 Dose: 100 mls/hr Insulin Human Regular 100 (units/ Sodium Chloride) 100 mls @ 6.35 mls/hr IVPB TITR [facility] [place]; Protocol Last Admin: 12/28/17 22:07 Dose: Not Given Sodium Chloride (Normal Saline -) 1,000 mls @ 30 mls/hr IV ASDIR [facility] [place] Last Admin: 12/29/17 01:22 Dose: Not Given Dextrose (D5w -) 1,000 mls @ 42 mls/hr IV ASDIR [facility] [place] Last Admin: 12/29/17 09:35 Dose: 42 mls/hr Insulin Aspart (Novolog Vial Sliding Scale -) 1 vial SQ ACHS [facility] [place]; Protocol Insulin Detemir (Levemir Vial) 12 units SQ BID@0700,2200 [facility] [place] Labetalol HCl (Normodyne -) 400 mg PO BID [facility] [place] Last Admin: 12/29/17 08:12 Dose: 400 mg Losartan Potassium (Cozaar -) 100 mg PO DAILY [facility] Last Admin: 12/29/17 09:35 Dose: 100 mg Oxycodone HCl (Roxicodone -) 10 mg PO Q6H PRN PRN Reason: PAIN LEVEL 6-10 Last Admin: 12/29/17 09:34 Dose: 10 mg - Objective Vital Signs: Vital Signs Temperature 99.6 F 12/29/17 13:30 Pulse Rate 96 H 12/29/17 13:30 Respiratory Rate 18 12/29/17 13:30 Blood Pressure 100/57 L 12/29/17 13:30 O2 Sat by Pulse Oximetry (%) 94 L 12/29/17 11:49 Constitutional: Yes: No Distress, Calm Neck: Yes: Supple Cardiovascular: Yes: Regular Rate and Rhythm Respiratory: Yes: Regular, Diminished, On Venti-Mask, Other (HFO2) Gastrointestinal: Yes: Normal Bowel Sounds, Soft Edema: No Labs: CBC, BMP 12/29/17 05:30 12/29/17 05:30 - ....Imaging Chest X-ray: Report Reviewed (Improving left density) EKG: Report Reviewed (Tele: NSR) Problem List - Problems (1) Diastolic dysfunction with heart failure Code(s): I50.30 - UNSPECIFIED DIASTOLIC (CONGESTIVE) HEART FAILURE Qualifiers: Heart failure chronicity: acute on chronic Qualified Code(s): I50.33 - Acute on chronic diastolic (congestive) heart failure (2) DKA, type 1 Code(s): E10.10 - TYPE 1 DIABETES MELLITUS WITH KETOACIDOSIS WITHOUT COMA Qualifiers: Diabetes mellitus complication detail: without coma Qualified Code(s): E10.10 - Type 1 diabetes mellitus with ketoacidosis without coma (3) Pneumonia Code(s): J18.9 - PNEUMONIA, UNSPECIFIED ORGANISM Qualifiers: Pneumonia type: due to unspecified organism Laterality: bilateral Lung location: lower lobe of lung Qualified Code(s): J18.1 - Lobar pneumonia, unspecified organism (4) ESRD (end stage renal disease) on dialysis Code(s): N18.6 - END STAGE RENAL DISEASE; Z99.2 - DEPENDENCE ON RENAL DIALYSIS (6) Fluid overload Code(s): E87.70 - FLUID OVERLOAD, UNSPECIFIED Qualifiers: Hypervolemia type: other Qualified Code(s): E87.79 - Other fluid overload (7) Respiratory failure Code(s): J96.90 - RESPIRATORY FAILURE, UNSP, UNSP W HYPOXIA OR HYPERCAPNIA (8) HTN (hypertension) Code(s): I10 - ESSENTIAL (PRIMARY) HYPERTENSION Qualifiers: Hypertension type: unspecified Qualified Code(s): I10 - Essential (primary ) hypertension Assessment/Plan 12/28/2017 Echo: Normal LV size and fxn, mild cLVH, grade I diastolic dysfunction, normal RV size and fxn, normal atrial sizes, mild TR 1. Acute Hypoxic Respiratory Failure - Pneumonia, sepsis 2. Post rapid response 3. Diastolic LV dysfunction with class I NYHA classification LV failure, volume overload 4. History of LA myxoma post resection 5. History of LA thrombus, unclear etiology and timing 6. HTN 7. IDDM with Diabetic Ketoacidosis improving 8. ESRD on HD PLAN: 1. Antibiotic course as per the primary team 2. HD/UF as per renal service 3. Continue on home regimen of Catapres, labetolol 400 bid and losartan 100qd 4. Taper off HFOT, keep SpO2 >90%, BD as needed
--- NOTE | 2017-12-29 14:48 | PN ---
Progress Note, Physician History of Present Illness: patient looking much better still on high flow oxygen feels weak - Current Medication List Current Medications: Active Medications Albuterol Sulfate (Ventolin 0.083% Nebulizer Soln -) 1 amp NEB RQID [facility] Last Admin: 12/29/17 12:34 Dose: 1 amp Clonidine (Catapres -) 0.3 mg PO TID [facility] Last Admin: 12/29/17 14:12 Dose: 0.3 mg Gabapentin (Neurontin -) 300 mg PO BID [facility] Last Admin: 12/29/17 09:34 Dose: 300 mg Heparin Sodium (Porcine) (Heparin -) 5,000 unit SQ BID [facility] Last Admin: 12/29/17 11:34 Dose: Not Given Piperacillin Sod/Tazobactam (Sod 2.25 gm/ Dextrose) 50 mls @ 100 mls/hr IVPB Q8H-IV [facility]; Protocol Last Admin: 12/29/17 09:33 Dose: 100 mls/hr Insulin Aspart (Novolog Vial Sliding Scale -) 1 vial SQ ACHS [facility]; Protocol Insulin Detemir (Levemir Vial) 12 units SQ BID@0700,2200 [facility] Labetalol HCl (Normodyne -) 400 mg PO BID [facility] Losartan Potassium (Cozaar -) 100 mg PO DAILY [facility] Oxycodone HCl (Roxicodone -) 10 mg PO Q6H PRN PRN Reason: PAIN LEVEL 6-10 Last Admin: 12/29/17 09:34 Dose: 10 mg - Objective Vital Signs: Vital Signs Temperature 99.6 F 12/29/17 13:30 Pulse Rate 96 H 12/29/17 13:30 Respiratory Rate 18 12/29/17 13:30 Blood Pressure 100/57 L 12/29/17 13:30 O2 Sat by Pulse Oximetry (%) 94 L 12/29/17 11:49 Constitutional: Yes: Calm, Mild Distress Cardiovascular: Yes: Regular Rate and Rhythm Respiratory: Yes: Regular, Poor Air Entry, Other (on high flow oxygen) Gastrointestinal: Yes: Normal Bowel Sounds, Soft Musculoskeletal: Yes: Other Extremities: Yes: Other Wound/Incision: Yes: Dressing Dry and Intact Neurological: Yes: Alert, Oriented Psychiatric: Yes: Alert, Oriented Labs: CBC, BMP 12/29/17 05:30 12/29/17 05:30 Assessment/Plan Acute Hypoxic Respiratory Failure Pneumonia Sepsis Diabetic Ketoacidosis improving ESRD on HD h/o LA Thrombus HTN plan cx report noted will stop vanco continue zosyn rest as per icu nutrition rest as per icu cc 40 min
--- NOTE | 2017-12-29 15:37 | CONSULT ---
Consult Consult Specialty:: Vascular Surgery Reason for Consultation:: S/P I&D of right leg abscess. Called to evaluate wounds. 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 , PE, DVT) Pulmonary: No: Sleep Apnea Renal/: Yes: Renal Failure, Hemodialysis ...LMP: 05/13/17 ...LMP Comment: pt states she has not having period for years Infectious Disease: Yes: MRSA, Other Endocrine: Yes: Diabetes Mellitus (type 1 on insulin pump) Additional Medical History: DVT, PE on coumadin - Past Surgical History Past Surgical History: Yes: AV Fistula/Graft (Right arm) - Alcohol/Substance Use Hx Alcohol Use: No History of Substance Use: reports: None - Smoking History Smoking history: Never smoked Have you smoked in the past 12 months: No Aproximately how many cigarettes per day: 10 If you are a former smoker, when did you quit?: couple months ago - Social History Usual Living Arrangement: With Parent ADL: Independent Occupation: unemployed History of Recent Travel: No Home Medications - Allergies Allergies/Adverse Reactions: Allergies Allergy/AdvReac Type Severity Reaction Status Date / Time lactose AdvReac Verified 12/27/17 12:22 - Home Medications Home Medications: Ambulatory Orders cloNIDine HCL [Catapres -] 0.3 mg PO TID 06/28/17 Collagenase Clostridium Hist. [Santyl -] 1 applic TP DAILY #1 tube 10/01/17 Insulin Detemir [Levemir Flextouch] 17 unit SQ BID #1 insuln.pen 10/01/17 Insulin Lispro [Humalog Kwikpen U-100] 100 unit SQ ASDIR #10 insuln.pen oxyCODONE HCL [Roxicodone -] 10 mg PO Q6H PRN #20 tablet MDD 4 10/29/17 Oxycodone HCl 10 mg PO Q6H PRN #15 tablet MDD 4 11/12/17 Albuterol 0.083% Nebulizer No [Ventolin 0.083% Nebulizer Soln -] 1 amp NEB Q6H #10 amp 12/02/17 Nebulizer Accessories [A.i.r.s. Nebulizer] 1 each PRN #1 kit 12/02/17 Gabapentin [Neurontin -] 300 mg PO BID 12/07/17 Insulin (Levemir) [Levemir Vial] 22 units SQ BIDI units 12/13/17 Insulin Sliding Scale [Novolog Vial Sliding Scale -] 1 vial SQ ACHS units 12/13 Labetalol HCl [Normodyne -] 400 mg PO BID tablet 12/13/17 Losartan Potassium [Cozaar -] 100 mg PO DAILY tablet 12/13/17 Family Disease History - Family Disease History Family Disease History: Diabetes: Grandparent (HTN), Heart Disease: Grandparent , Other: Father (unknown), Mother (HTN) Review of Systems - Review of Systems Constitutional: reports: No Symptoms Eyes: reports: No Symptoms HENT: reports: No Symptoms Neck: reports: No Symptoms Cardiovascular: reports: No Symptoms Respiratory: reports: No Symptoms Genitourinary: reports: No Symptoms Musculoskeletal: reports: No Symptoms Integumentary: reports: No Symptoms Neurological: reports: No Symptoms Hematology/Lymphatic: reports: No Symptoms Psychiatric: reports: No Symptoms Physical Exam Vital Signs: Vital Signs Temperature 99.6 F 12/29/17 13:30 Pulse Rate 96 H 12/29/17 13:30 Respiratory Rate 18 12/29/17 15:00 Blood Pressure 101/58 L 12/29/17 15:00 O2 Sat by Pulse Oximetry (%) 94 L 12/29/17 11:49 Constitutional: Yes: Well Nourished, No Distress, Calm Eyes: Yes: WNL, Conjunctiva Clear, EOM Intact HENT: Yes: WNL, Atraumatic, Normocephalic Neck: Yes: WNL, Supple, Trachea Midline Cardiovascular: Yes: WNL, Regular Rate and Rhythm Respiratory: Yes: WNL, Regular, CTA Bilaterally Gastrointestinal: Yes: WNL, Normal Bowel Sounds ...Rectal Exam: Yes: WNL Renal/: Yes: WNL Breast(s): Yes: WNL Musculoskeletal: Yes: WNL Extremities: Yes: Other (Wound wounds from I&D. Still with some drainage and slough. Wounds have filled in considerably since I&D 2 weeks ago.) Edema: Yes Peripheral Pulses WNL: Yes Integumentary: Yes: WNL Neurological: Yes: WNL, Alert, Oriented ...Motor Strength: WNL Psychiatric: Yes: WNL Labs: CBC, BMP 12/29/17 05:30 12/29/17 05:30 Problem List - Problems (1) Pneumonia Code(s): J18.9 - PNEUMONIA, UNSPECIFIED ORGANISM Qualifiers: Pneumonia type: due to unspecified organism Laterality: bilateral Lung location: lower lobe of lung Qualified Code(s): J18.1 - Lobar pneumonia, unspecified organism (2) Ulcer of right leg Code(s): L97.919 - NON-PRS CHRONIC ULC UNSP PRT OF R LOW LEG W UNSP SEVERITY Qualifiers: Non-pressure ulcer stage: with fat layer exposed Qualified Code(s): L97.912 - Non-pressure chronic ulcer of unspecified part of right lower leg with fat layer exposed Assessment/Plan Right leg wounds after I&D of right leg abscess. 1. Wounds look good. Cont Iodoform packing daily. At some point, once clean enough will place vac dressing on right leg. 2. Santyl to wounds , then idoform. Tre ortiz DO
--- NOTE | 2017-12-29 20:28 | PN ---
Progress Note, Physician History of Present Illness: feeling good - Current Medication List Current Medications: Active Medications Albuterol Sulfate (Ventolin 0.083% Nebulizer Soln -) 1 amp NEB RQID [facility] Last Admin: 12/29/17 15:35 Dose: 1 amp Clonidine (Catapres -) 0.3 mg PO TID [facility] Last Admin: 12/29/17 18:05 Dose: Not Given Collagenase (Santyl -) 1 applic TP DAILY [facility]; Protocol Gabapentin (Neurontin -) 300 mg PO BID [facility] Last Admin: 12/29/17 09:34 Dose: 300 mg Heparin Sodium (Porcine) (Heparin -) 5,000 unit SQ BID [facility] Last Admin: 12/29/17 11:34 Dose: Not Given Piperacillin Sod/Tazobactam (Sod 2.25 gm/ Dextrose) 50 mls @ 100 mls/hr IVPB Q8H-IV [facility]; Protocol Last Admin: 12/29/17 17:19 Dose: 100 mls/hr Insulin Aspart (Novolog Vial Sliding Scale -) 1 vial SQ ACHS [facility]; Protocol Last Admin: 12/29/17 17:18 Dose: Not Given Insulin Detemir (Levemir Vial) 12 units SQ BID@0700,2200 [facility] Labetalol HCl (Normodyne -) 400 mg PO BID [facility] Losartan Potassium (Cozaar -) 100 mg PO DAILY [facility] Oxycodone HCl (Roxicodone -) 10 mg PO Q6H PRN PRN Reason: PAIN LEVEL 6-10 Last Admin: 12/29/17 20:07 Dose: 10 mg - Objective Vital Signs: Vital Signs Temperature 99.6 F 12/29/17 13:30 Pulse Rate 90 12/29/17 19:00 Respiratory Rate 15 12/29/17 19:00 Blood Pressure 124/78 12/29/17 19:00 O2 Sat by Pulse Oximetry (%) 94 L 12/29/17 15:05 Constitutional: Yes: No Distress HENT: Yes: Atraumatic Neck: Yes: Supple Cardiovascular: Yes: Regular Rate and Rhythm Respiratory: Yes: Rhonchi Gastrointestinal: Yes: Normal Bowel Sounds Extremities: Yes: Other (wounds b/l carmen R more than left) Edema: Yes Edema: LLE: 2+, RLE: 2+ Labs: CBC, BMP 12/29/17 05:30 12/29/17 05:30 Problem List - Problems (1) Fracture of ribs, multiple, closed Assessment/Plan: prn pain meds Code(s): S22.49XA - MULTIPLE FRACTURES OF RIBS, UNSP SIDE, INIT FOR CLOS FX Qualifiers: Encounter type: subsequent encounter Laterality: right Fracture healing: with routine healing Qualified Code(s): S22.41XD - Multiple fractures of ribs , right side, subsequent encounter for fracture with routine healing (2) Pneumonia Assessment/Plan: on abx per id cxs sent id on board Code(s): J18.9 - PNEUMONIA, UNSPECIFIED ORGANISM Qualifiers: Pneumonia type: due to unspecified organism Laterality: bilateral Lung location: lower lobe of lung Qualified Code(s): J18.1 - Lobar pneumonia, unspecified organism (3) ESRD (end stage renal disease) on dialysis Assessment/Plan: on hd renal on board Code(s): N18.6 - END STAGE RENAL DISEASE; Z99.2 - DEPENDENCE ON RENAL DIALYSIS (4) Diabetes mellitus, insulin dependent (IDDM), uncontrolled Assessment/Plan: on insulin bgms Code(s): E10.65 - TYPE 1 DIABETES MELLITUS WITH HYPERGLYCEMIA (5) Ulcer of right leg Code(s): L97.919 - NON-PRS CHRONIC ULC UNSP PRT OF R LOW LEG W UNSP SEVERITY Qualifiers: Non-pressure ulcer stage: with fat layer exposed Qualified Code(s): L97.912 - Non-pressure chronic ulcer of unspecified part of right lower leg with fat layer exposed (6) Anemia Assessment/Plan: fu cbc transfuse if needed Code(s): D64.9 - ANEMIA, UNSPECIFIED Qualifiers: Anemia type: due to chronic kidney disease Chronic kidney disease stage: on chronic dialysis Qualified Code(s): N18.6 - End stage renal disease; D63.1 - Anemia in chronic kidney disease; Z99.2 - Dependence on renal dialysis Assessment/Plan cc time 30 min
[2017-12-29] MEDS ORDERED: PT OWN MED DRAWER 7, Y5N ONE (21:33)
[2017-12-29] MEDS: COLLAGENASE CLOSTRIDIUM HIST. 30 GRAMS TUBE TP SCH (21:40)
[2017-12-29] MEDS: LABETALOL HCL 200 MG TABLET (FP) PO SCH ×2 (21:40→21:46)
--- NOTE | 2017-12-29 23:52 | PN ---
Progress Note, Physician Chief Complaint: appetite not good low sugars likely recovery phase History of Present Illness: iddm type1,dka,dehydration,requires cgms as outpatient need follow up with cde - Current Medication List Current Medications: Active Medications Albuterol Sulfate (Ventolin 0.083% Nebulizer Soln -) 1 amp NEB RQID [facility] Last Admin: 12/29/17 20:35 Dose: 1 amp Clonidine (Catapres -) 0.3 mg PO TID [facility] Last Admin: 12/29/17 21:38 Dose: 0.3 mg Collagenase (Santyl -) 1 applic TP DAILY [facility]; Protocol Last Admin: 12/29/17 21:40 Dose: 1 applic Gabapentin (Neurontin -) 300 mg PO BID [facility] Last Admin: 12/29/17 21:39 Dose: 300 mg Heparin Sodium (Porcine) (Heparin -) 5,000 unit SQ BID [facility] Last Admin: 12/29/17 21:39 Dose: 5,000 unit Piperacillin Sod/Tazobactam (Sod 2.25 gm/ Dextrose) 50 mls @ 100 mls/hr IVPB Q8H-IV [facility]; Protocol Last Admin: 12/29/17 17:19 Dose: 100 mls/hr Insulin Aspart (Novolog Vial Sliding Scale -) 1 vial SQ ACHS [facility]; Protocol Insulin Detemir (Levemir Vial) 12 units SQ BID@0700,2200 [facility] Last Admin: 12/29/17 21:40 Dose: 12 units Labetalol HCl (Normodyne -) 400 mg PO BID [facility] Last Admin: 12/29/17 21:46 Dose: Not Given Losartan Potassium (Cozaar -) 100 mg PO DAILY [facility] Oxycodone HCl (Roxicodone -) 10 mg PO Q6H PRN PRN Reason: PAIN LEVEL 6-10 Last Admin: 12/29/17 20:07 Dose: 10 mg - Objective Vital Signs: Vital Signs Temperature 98.7 F 12/29/17 21:00 Pulse Rate 94 H 12/29/17 21:00 Respiratory Rate 18 12/29/17 21:00 Blood Pressure 106/65 12/29/17 21:00 O2 Sat by Pulse Oximetry (%) 99 12/29/17 20:37 Constitutional: Yes: Calm Eyes: Yes: EOM Intact HENT: Yes: Normocephalic Neck: Yes: Trachea Midline Cardiovascular: Yes: Pulse Irregular, Murmur Respiratory: Yes: CTA Bilaterally, Tachypnea Gastrointestinal: Yes: Normal Bowel Sounds ...Rectal Exam: Yes: Deferred Extremities: Yes: Cool, Delayed Capillary Refill Edema: RUE: 2+, LLE: 2+ Wound/Incision: Yes: Dressing Dry and Intact Neurological: Yes: Alert, Oriented Labs: CBC, BMP 12/29/17 05:30 12/29/17 05:30 Problem List - Problems (1) DKA, type 1 Code(s): E10.10 - TYPE 1 DIABETES MELLITUS WITH KETOACIDOSIS WITHOUT COMA Qualifiers: Diabetes mellitus complication detail: without coma Qualified Code(s): E10.10 - Type 1 diabetes mellitus with ketoacidosis without coma Assessment/Plan Current Active Problems DKA, type 1 (Acute) Diastolic dysfunction with heart failure (Acute) Fracture of ribs, multiple, closed (Acute) Pneumonia (Acute) Ulcer of right leg (Acute) ESRD (end stage renal disease) on dialysis (Chronic) Abnormal Lab Results 12/29/17 12/29/17 05:30 05:30 WBC 16.0 H RBC 3.42 L Hgb 8.6 L Hct 27.9 L MCH 25.2 L MCHC 30.9 L RDW 17.6 H Absolute Neuts (auto) 13.4 H Neutrophils % 83.9 H Lymphocytes % 4.7 L D Chloride 97 L BUN 38 H Creatinine 4.8 H Phosphorus 6.0 H ALT 12 L Alkaline Phosphatase 628 H Albumin 2.8 L Laboratory Results - last 24 hr 12/27/17 12/28/17 12/29/17 23:48 21:12 05:30 WBC 16.0 H RBC 3.42 L Hgb 8.6 L Hct 27.9 L MCV 81.5 MCH 25.2 L MCHC 30.9 L RDW 17.6 H Plt Count 256 MPV 8.6 Absolute Neuts (auto) 13.4 H Neutrophils % 83.9 H Lymphocytes % 4.7 L D Monocytes % 8.6 Eosinophils % 2.2 Basophils % 0.6 Nucleated RBC % 0 Sodium Potassium Chloride Carbon Dioxide Anion Gap BUN Creatinine Creat Clearance w eGFR POC Glucometer 154.07218 Random Glucose Calcium Phosphorus Magnesium Total Bilirubin AST ALT Alkaline Phosphatase Total Protein Albumin Hep C Ab Diagnostic <0.1 Liver Fibrosis Interp 0912/29/17 12/29/17 05:30 06:14 07:52 WBC RBC Hgb Hct MCV MCH MCHC RDW Plt Count MPV Absolute Neuts (auto) Neutrophils % Lymphocytes % Monocytes % Eosinophils % Basophils % Nucleated RBC % Sodium 138 Potassium 3.9 Chloride 97 L Carbon Dioxide 26 Anion Gap 14 BUN 38 H Creatinine 4.8 H Creat Clearance w eGFR 10.80 POC Glucometer 84.37008 54.20502 Random Glucose 77 Calcium 8.9 Phosphorus 6.0 H Magnesium 2.1 Total Bilirubin 0.4 AST 15 ALT 12 L Alkaline Phosphatase 628 H Total Protein 7.6 Albumin 2.8 L Hep C Ab Diagnostic Liver Fibrosis Interp 12/29/17 12/29/17 08:37 11:37 WBC RBC Hgb Hct MCV MCH MCHC RDW Plt Count MPV Absolute Neuts (auto) Neutrophils % Lymphocytes % Monocytes % Eosinophils % Basophils % Nucleated RBC % Sodium Potassium Chloride Carbon Dioxide Anion Gap BUN Creatinine Creat Clearance w eGFR POC Glucometer 140.52465 118.79640 Random Glucose Calcium Phosphorus Magnesium Total Bilirubin AST ALT Alkaline Phosphatase Total Protein Albumin Hep C Ab Diagnostic Liver Fibrosis Interp plan: levemir dose 12 units bid will need dose changes as appetite improves bgm qid achs
[2017-12-30] MEDS: PIPERACILLIN/TAZOB 2.25 GM 2.25 GM in DEXTROSE 5%-WATER - 50 ML IVPB SCH ×3 (02:13→17:13)
[2017-12-30] MEDS ORDERED: DEXTROSE 5%-WATER - 50 ML IVPB ONE ×4 (03:12→21:14)
[2017-12-30] MEDS ORDERED: PIPERACILLIN/TAZOBACTAM 2.25 GM VIAL IVPB ONE ×4 (03:12→21:14)
[2017-12-30] MEDS: cloNIDine HCL 0.1 MG TABLET PO SCH ×3 (05:46→21:59)
[2017-12-30] MEDS: oxyCODONE HCL 5 MG TABLET PO PRN ×3 (05:47→22:02)
[2017-12-30] MEDS: INSULIN SLIDING SCALE (NOVOLOG) 1 VIAL SQ SCH ×4 (07:08→21:56)
[2017-12-30] MEDS: INSULIN (LEVEMIR) 100 UNITS/ML UNITS SQ SCH ×2 (07:08→21:56)
[2017-12-30] MEDS: ALBUTEROL SO4 0.083% IH SOL 2.5 MG/3 ML VIAL.NEB. NEB SCH ×4 (07:52→20:40)
[2017-12-30] MEDS ORDERED: guaiFENesin 200 MG/10 ML 10 ML UNIT-DOSE CUPS PO PRN (08:01)
--- NOTE | 2017-12-30 08:47 | PN ---
Physical Exam: SUBJECTIVE: Patient seen and examined. Pt. had 3 bowel movements overnight. Pt. refused Labetalol last night and 1 dose of clonidine yesterday. Pt. receiving HD today. Pt. denies any complaints of pain, including chest pain and abdominal pain or worsening SOB. Pt. denies fever, chills or sweats. OBJECTIVE: Vital Signs Period Temp Pulse Resp BP Sys/Ames Pulse Ox Last 24 Hr 98.7 F-99.6 F 10-104 15-18 100-164/57-106 94-100 GENERAL: The patient is awake, alert, and fully oriented, lying in bed in no acute distress. EYES: Periorbital edema is decreased from yesterday, sclera anicteric, conjunctiva clear. No ptosis. ENT: Ears normal, nares patent, moist mucous membranes. LUNGS: Improved respirations from yesterday, decreased crackles in RLL. 2 clavicular head masses that are non tender to palpation HEART: Regular rate and rhythm, S1, S2 with third heart sound loudest in left 2nd intercostal space ABDOMEN: Soft, nontender, nondistended, normoactive bowel sounds, no guarding, no rebound EXTREMITIES: No calf tenderness 2+ left radial pulse, thrills present in left upper arm, no dorsal pedal pulses appreciated, anasarca in LE b/l NEUROLOGICAL: Normal speech, gait not observed. PSYCH: Normal mood, normal affect. SKIN: Anasarca throughout lower extremities Laboratory Results - last 24 hr 12/29/17 12/29/17 12/29/17 07:52 08:37 11:37 POC Glucometer 54.73439 140.60042 118.14152 12/29/17 12/29/17 17:17 21:16 POC Glucometer 137.43128 248.87573 Active Medications Current Medications Albuterol Sulfate (Ventolin 0.083% Nebulizer Soln -) 1 amp NEB RQID [facility] Last Admin: 12/30/17 15:15 Dose: 1 amp Clonidine (Catapres -) 0.3 mg PO TID [facility] Last Admin: 12/30/17 05:46 Dose: 0.3 mg Collagenase (Santyl -) 1 applic TP DAILY [facility]; Protocol Last Admin: 12/30/17 13:09 Dose: Not Given Gabapentin (Neurontin -) 300 mg PO BID [facility] Last Admin: 12/30/17 09:37 Dose: 300 mg Guaifenesin (Robitussin -) 10 ml PO Q8H PRN PRN Reason: COUGH Heparin Sodium (Porcine) (Heparin -) 5,000 unit SQ BID [facility] Last Admin: 12/30/17 09:38 Dose: Not Given Piperacillin Sod/Tazobactam (Sod 2.25 gm/ Dextrose) 50 mls @ 100 mls/hr IVPB Q8H-IV [facility]; Protocol Last Admin: 12/30/17 09:37 Dose: 100 mls/hr Sodium Chloride (Normal Saline -) 250 mls @ 3,000 mls/hr IV PRN PRN PRN Reason: Hypotension during Dialysis Stop: 12/31/17 09:12 Insulin Aspart (Novolog Vial Sliding Scale -) 1 vial SQ ACHS [facility]; Protocol Last Admin: 12/30/17 13:08 Dose: 4 units Insulin Detemir (Levemir Vial) 12 units SQ BID@0700,2200 [facility] Last Admin: 12/30/17 07:08 Dose: 12 units Labetalol HCl (Normodyne -) 400 mg PO BID [facility] Last Admin: 12/30/17 09:37 Dose: 400 mg Losartan Potassium (Cozaar -) 100 mg PO DAILY [facility] Last Admin: 12/30/17 09:37 Dose: 100 mg Oxycodone HCl (Roxicodone -) 10 mg PO Q6H PRN PRN Reason: PAIN LEVEL 6-10 Last Admin: 12/30/17 13:00 Dose: 10 mg ASSESSMENT/PLAN: Patient is a 27 year old female, well known to [facility], with significant past medical history of HD (M,W,F LUE AVF), IDDM, HTN, PVD, Atrial thrombus, Cardiac Arrest, Pneumonia, Right Foot ulcer, non compliance was brought in via EMS with the chief complaints of shortness of breath x 1 day. # Respiratory -Acute hypoxic respiratory failure likely secondary to sepsis from pneumonia Weaned off High flow to 4L NC WBC 17, tachycardic, bibasilar crackles, CXR shows possible pneumonia D/C Vancomycin IV Zosyn 2.25 gm IV Q8H (Renally dosed) ID on board (Dr. Rodrigues) CXR shows improving RLL consolidation -Multiple right rib fractures s/p fall last week CT chest 12/23/17: Multlple partially healed fractures in the right Pain control w/ oxycodone 10mg Q6H PRN Incentive spirometry 10x/hour # Integumentary -Diabetic foot ulcer Sepsis could also be from his wounds. Was recently treated with IV Levaquin and Flagyl for RLE cellulitis and abscess Has Purulent diabetic ulcer 1.5 x 1.3, fowl smelling On IV Zosyn 2.25 gm IV Q8H, ID on board 12/07/17 wound culture grew Serratia Marcescens Dr. Dubon and Dr. Carr on board- C/w daily santyl to wounds then iodoform packing, will apply wound vac at some point in the future once wounds look clean enough. -Clavicular lesion CT chest 12/23/17 clavicular lesion suggesting brown tumor? Would recommend bone biopsy when stable. # Cardiovascular -Hypertension Echo(12/28/17) appreciated: EF: 65%, Mild concentric LVH-Grade 1, mild TR, trace MR, LA and RA nml size and fxn., mild pulmonary HTN, C/w Clonidine C/w Labetalol and Losartan with holding parameters # Endocrinology -Hyperglycemia vs. DKA vs. HHS- resolved C/w Levemir 12 units BID, titrating up as needed based on PO intake D/c- Insulin drip ISS D/c IVf Endocrine consult appreciate(Dr. Cassidy) # Renal -ESRD on HD MWF HD completed today BMP shows BUN/Cr. of 48/5.7---> f/u post HD CBC Nephrology consult with Dr. Vo appreciated Per Pt. she takes 50mg Benadryl after HD- approved by Dr. Vo # Hematology -Normocytic anemia 2/2 ESRD H/H: 7.6/24.4 (12/30/17) Transfuse if Hb is <7/Hct <25. Monitor for any bleeding. # F/E/N D/c IVF encourage PO intake Monitor electrolytes and replete as needed Diabetic diet? Pt. has family members bringing her [employer] # Prophylaxis -DVT: Heparin sq -GI: Not indicated # Code Status: Full Code Plan of care explained to the patient. She verbalized understanding. Visit type - Emergency Visit Emergency Visit: Yes ED Registration Date: 12/27/17 Care time: The patient presented to the Emergency Department on the above date and was hospitalized for further evaluation of their emergent condition. - New Patient This patient is new to me today: No - Critical Care Critical Care patient: Yes Total Critical Care Time (in minutes): 35 Critical Care Statement: The care of this patient involved high complexity decision making to prevent further life threatening deterioration of the patient 's condition and/or to evaluate & treat vital organ system(s) failure or risk of failure.
[2017-12-30] MEDS ORDERED: SODIUM CHLORIDE 250 ML IV PRN (09:12)
[2017-12-30] MEDS: GABAPENTIN 300 MG CAPSULE (FP) PO SCH ×2 (09:37→21:55)
[2017-12-30] MEDS: LOSARTAN POTASSIUM 50 MG TABLET (FP) PO SCH (09:37)
[2017-12-30] MEDS: LABETALOL HCL 200 MG TABLET (FP) PO SCH ×2 (09:37→21:55)
[2017-12-30] MEDS: HEPARIN NA (PORCINE) 5,000 UNITS/ML 1ML VIAL SQ SCH ×2 (09:38→21:56)
[2017-12-30] MEDS ORDERED: EPOETIN ALFA 20,000 UNIT/1 ML VIAL IVPUSH ONE (10:00)
[2017-12-30 11:29] LABS: BASO % 1.2 % (0-2.0); EOS % 5.1 % (0-4.5); HEMATOCRIT 24.4 % (32.4-45.2); HEMOGLOBIN 7.6 GM/dL (10.7-15.3); LYMPH % 5.8 % (8-40); MCH 25.7 pg (25.7-33.7); MCHC 31.2 g/dl (32.0-36.0); MEAN CELL VOLUME 82.3 fl (80-96); MEAN PLT VOLUME 8.8 fl (7.5-11.1); MONO % 8.4 % (3.8-10.2); NEUT % 79.5 % (42.8-82.8); PLATELET COUNT 226 K/MM3 (134-434); RBC 2.97 M/mm3 (3.60-5.2); RDW 17.2 % (11.6-15.6); WHITE BLOOD COUNT 4.8 K/mm3 (4.0-10.0)
[2017-12-30 11:59] LABS: ANION GAP 18 MMOL/L (8-16); BLOOD UREA NITROGEN 48 mg/dL (7-18); CALCIUM 7.7 mg/dL (8.5-10.1); CHLORIDE 101 mmol/L (98-107); CO2 22 mmol/L (21-32); CREATININE 5.7 mg/dL (0.55-1.3); GLUCOSE,RANDOM 182 mg/dL (74-106); PHOSPHOROUS 5.9 mg/dL (2.5-4.9); POTASSIUM 4.2 mmol/L (3.5-5.1); SODIUM 141 mmol/L (136-145)
[2017-12-30] MEDS ORDERED: LABETALOL HCL 5 MG/1 ML (100MG/20 ML VIAL) IVPUSH ONE ×2 (12:38→14:01)
[2017-12-30] MEDS ORDERED: LABETALOL HCL 5 MG/1 ML (100MG/20 ML VIAL) ONE (12:44)
--- NOTE | 2017-12-30 12:49 | PN ---
Teaching Attending Note Name of Resident: Jeramie Paez ATTENDING PHYSICIAN STATEMENT I saw and evaluated the patient. I reviewed the resident's note and discussed the case with the resident. I agree with the resident's findings and plan as documented. SUBJECTIVE: Patient seen and examined in the ICU. Currently on NC O2. Breathing feels a little better. Still with generalized body aches. Currently on HD. Elevated BP as she refused her antihypertensive agents this AM. Intake & Output 12/27/17 12/28/17 12/29/17 12/30/17 23:59 23:59 23:59 23:59 Intake Total 250 1468.4 1200 250 Output Total 0 0 0 Balance 250 1468.4 1200 250 Weight 152 lb 12.8 oz 151 lb 151 lb 148 lb 6 oz Last Vital Signs Temp Pulse Resp BP Pulse Ox 99 F 94 H 18 140/94 94 L 12/30/17 10:35 12/30/17 10:40 12/30/17 10:40 12/30/17 10:40 12/30/17 09:54 Active Medications Albuterol Sulfate (Ventolin 0.083% Nebulizer Soln -) 1 amp NEB RQID [facility] Last Admin: 12/30/17 11:53 Dose: 1 amp Clonidine (Catapres -) 0.3 mg PO TID [facility] Last Admin: 12/30/17 05:46 Dose: 0.3 mg Collagenase (Santyl -) 1 applic TP DAILY [facility]; Protocol Last Admin: 12/29/17 21:40 Dose: 1 applic Gabapentin (Neurontin -) 300 mg PO BID [facility] Last Admin: 12/30/17 09:37 Dose: 300 mg Guaifenesin (Robitussin -) 10 ml PO Q8H PRN PRN Reason: COUGH Heparin Sodium (Porcine) (Heparin -) 5,000 unit SQ BID [facility] Last Admin: 12/30/17 09:38 Dose: Not Given Piperacillin Sod/Tazobactam (Sod 2.25 gm/ Dextrose) 50 mls @ 100 mls/hr IVPB Q8H-IV [facility]; Protocol Last Admin: 12/30/17 09:37 Dose: 100 mls/hr Sodium Chloride (Normal Saline -) 250 mls @ 3,000 mls/hr IV PRN PRN PRN Reason: Hypotension during Dialysis Stop: 12/31/17 09:12 Insulin Aspart (Novolog Vial Sliding Scale -) 1 vial SQ ACHS [facility]; Protocol Last Admin: 12/30/17 07:08 Dose: 3 units Insulin Detemir (Levemir Vial) 12 units SQ BID@0700,2200 [facility] Last Admin: 12/30/17 07:08 Dose: 12 units Labetalol HCl (Normodyne -) 400 mg PO BID [facility] Last Admin: 12/30/17 09:37 Dose: 400 mg Losartan Potassium (Cozaar -) 100 mg PO DAILY [facility] Last Admin: 12/30/17 09:37 Dose: 100 mg Oxycodone HCl (Roxicodone -) 10 mg PO Q6H PRN PRN Reason: PAIN LEVEL 6-10 Last Admin: 12/30/17 05:47 Dose: 10 mg GENERAL: Awake, alert, and oriented. Mildly tachypneic at rest HEAD: Normal with no signs of trauma. EYES: Puffy eyes, pallor +, no icterus. EARS, NOSE, THROAT: Ears normal. Moist mucous membranes. NECK: Supple. LUNGS: Mildly tachypenic, bibasilar rhonchi Right > Left. No wheezes. HEART: Tachycardic, Regular rate and rhythm, normal S1 and S2 with systolic murmur. ABDOMEN: Soft, nontender,no organomegaly. MUSCULOSKELETAL: Normal range of motion at all joints. No bony deformities or tenderness. No CVA tenderness. UPPER EXTREMITIES: LUE AVF functioning, 2+ pulses, warm. LOWER EXTREMITIES: Edematous with multiple areas of dressed wounds. NEUROLOGICAL: Non-focal. PSYCHIATRIC: Cooperative. SKIN: Warm, multiple wounds/ulcers. Laboratory Results - last 24 hr 12/29/17 12/29/17 12/29/17 07:52 08:37 11:37 WBC RBC Hgb Hct MCV MCH MCHC RDW Plt Count MPV Absolute Neuts (auto) Neutrophils % Lymphocytes % Monocytes % Eosinophils % Basophils % Nucleated RBC % Sodium Potassium Chloride Carbon Dioxide Anion Gap BUN Creatinine Creat Clearance w eGFR POC Glucometer 54.26029 140.20044 118.47215 Random Glucose Calcium Phosphorus Magnesium 12/29/17 12/29/17 12/30/17 17:17 21:16 05:47 WBC RBC Hgb Hct MCV MCH MCHC RDW Plt Count MPV Absolute Neuts (auto) Neutrophils % Lymphocytes % Monocytes % Eosinophils % Basophils % Nucleated RBC % Sodium Potassium Chloride Carbon Dioxide Anion Gap BUN Creatinine Creat Clearance w eGFR POC Glucometer 137.19284 248.80046 202.36150 Random Glucose Calcium Phosphorus Magnesium 12/30/17 12/30/17 10:40 10:40 WBC 4.8 RBC 2.97 L Hgb 7.6 L Hct 24.4 L MCV 82.3 MCH 25.7 MCHC 31.2 L RDW 17.2 H Plt Count 226 MPV 8.8 Absolute Neuts (auto) 3.8 Neutrophils % 79.5 Lymphocytes % 5.8 L D Monocytes % 8.4 Eosinophils % 5.1 H D Basophils % 1.2 Nucleated RBC % 0 Sodium 141 Potassium 4.2 Chloride 101 Carbon Dioxide 22 Anion Gap 18 H BUN 48 H Creatinine 5.7 H Creat Clearance w eGFR 8.86 POC Glucometer Random Glucose 182 H Calcium 7.7 L Phosphorus 5.9 H Magnesium 2.0 IMP: Acute Respiratory failure requiring HF NC O2 ESRD on HD (M,W,F LUE AVF) IDDM HTN PVD Atrial thrombus Cardiac Arrest by history Suspected Pneumonia Right Foot ulcer History of Non-compliance Rib Fracture Do not suspect ARDS at this time Hyperglycemia: do not suspect DKA NC O2 as tolerated HD for volume removal Aspiration precautions ABX per ID BD TX Follow cultures Follow CXR Pain control Incentive spirometry Monitor off steroids for now due to significant hyperglycemia Glycemic control Cardiac Telemetry monitoring Dr Ballesteros
--- NOTE | 2017-12-30 12:55 | PN ---
Progress Note, Physician History of Present Illness: Dyspnea improving on HFO2, undergoing HD, BP elevated, given IV labetolol. - Current Medication List Current Medications: Active Medications Albuterol Sulfate (Ventolin 0.083% Nebulizer Soln -) 1 amp NEB RQID [facility] Last Admin: 12/30/17 11:53 Dose: 1 amp Clonidine (Catapres -) 0.3 mg PO TID [facility] Last Admin: 12/30/17 05:46 Dose: 0.3 mg Collagenase (Santyl -) 1 applic TP DAILY [facility]; Protocol Last Admin: 12/29/17 21:40 Dose: 1 applic Gabapentin (Neurontin -) 300 mg PO BID [facility] Last Admin: 12/30/17 09:37 Dose: 300 mg Guaifenesin (Robitussin -) 10 ml PO Q8H PRN PRN Reason: COUGH Heparin Sodium (Porcine) (Heparin -) 5,000 unit SQ BID [facility] Last Admin: 12/30/17 09:38 Dose: Not Given Piperacillin Sod/Tazobactam (Sod 2.25 gm/ Dextrose) 50 mls @ 100 mls/hr IVPB Q8H-IV [facility]; Protocol Last Admin: 12/30/17 09:37 Dose: 100 mls/hr Sodium Chloride (Normal Saline -) 250 mls @ 3,000 mls/hr IV PRN PRN PRN Reason: Hypotension during Dialysis Stop: 12/31/17 09:12 Insulin Aspart (Novolog Vial Sliding Scale -) 1 vial SQ ACHS [facility]; Protocol Last Admin: 12/30/17 07:08 Dose: 3 units Insulin Detemir (Levemir Vial) 12 units SQ BID@0700,2200 [facility] Last Admin: 12/30/17 07:08 Dose: 12 units Labetalol HCl (Normodyne -) 400 mg PO BID [facility] Last Admin: 12/30/17 09:37 Dose: 400 mg Losartan Potassium (Cozaar -) 100 mg PO DAILY [facility] Last Admin: 12/30/17 09:37 Dose: 100 mg Oxycodone HCl (Roxicodone -) 10 mg PO Q6H PRN PRN Reason: PAIN LEVEL 6-10 Last Admin: 12/30/17 05:47 Dose: 10 mg - Objective Vital Signs: Vital Signs Temperature 99 F 12/30/17 10:35 Pulse Rate 98 H 12/30/17 12:53 Respiratory Rate 20 12/30/17 12:53 Blood Pressure 207/109 H 12/30/17 12:53 O2 Sat by Pulse Oximetry (%) 94 L 12/30/17 09:54 Constitutional: Yes: No Distress, Calm, Thin Neck: Yes: Supple Cardiovascular: Yes: Regular Rate and Rhythm Respiratory: Yes: Regular, On Nasal O2 Gastrointestinal: Yes: Normal Bowel Sounds, Soft Edema: No Labs: CBC, BMP 12/30/17 10:40 12/30/17 10:40 - ....Imaging EKG: Report Reviewed (Tele: NSR) Problem List - Problems (1) Diastolic dysfunction with heart failure Code(s): I50.30 - UNSPECIFIED DIASTOLIC (CONGESTIVE) HEART FAILURE Qualifiers: Heart failure chronicity: acute on chronic Qualified Code(s): I50.33 - Acute on chronic diastolic (congestive) heart failure (2) DKA, type 1 Code(s): E10.10 - TYPE 1 DIABETES MELLITUS WITH KETOACIDOSIS WITHOUT COMA Qualifiers: Diabetes mellitus complication detail: without coma Qualified Code(s): E10.10 - Type 1 diabetes mellitus with ketoacidosis without coma (3) Pneumonia Code(s): J18.9 - PNEUMONIA, UNSPECIFIED ORGANISM Qualifiers: Pneumonia type: due to unspecified organism Laterality: bilateral Lung location: lower lobe of lung Qualified Code(s): J18.1 - Lobar pneumonia, unspecified organism (4) ESRD (end stage renal disease) on dialysis Code(s): N18.6 - END STAGE RENAL DISEASE; Z99.2 - DEPENDENCE ON RENAL DIALYSIS (6) Fluid overload Code(s): E87.70 - FLUID OVERLOAD, UNSPECIFIED Qualifiers: Hypervolemia type: other Qualified Code(s): E87.79 - Other fluid overload (7) Respiratory failure Code(s): J96.90 - RESPIRATORY FAILURE, UNSP, UNSP W HYPOXIA OR HYPERCAPNIA (8) HTN (hypertension) Code(s): I10 - ESSENTIAL (PRIMARY) HYPERTENSION Qualifiers: Hypertension type: unspecified Qualified Code(s): I10 - Essential (primary ) hypertension (9) Anemia Code(s): D64.9 - ANEMIA, UNSPECIFIED Qualifiers: Anemia type: due to chronic kidney disease Chronic kidney disease stage: on chronic dialysis Qualified Code(s): N18.6 - End stage renal disease; D63.1 - Anemia in chronic kidney disease; Z99.2 - Dependence on renal dialysis Assessment/Plan 12/28/2017 Echo: Normal LV size and fxn, mild cLVH, grade I diastolic dysfunction, normal RV size and fxn, normal atrial sizes, mild TR 1. Acute Hypoxic Respiratory Failure - Pneumonia, sepsis 2. Post rapid response 3. Diastolic LV dysfunction with class I NYHA classification LV failure, volume overload 4. History of LA myxoma post resection 5. History of LA thrombus, unclear etiology and timing 6. HTN 7. IDDM 8. ESRD on HD (M,W,F LUE AVF) 9. PVD Right Foot ulcer 10. Anemia of CKD PLAN: 1. Antibiotic course as per the primary team 2. HD/UF as per renal service 3. Continue on home regimen of Catapres, labetolol 400 bid and losartan 100qd 4. Taper off HFOT, keep SpO2 >90%, BD as needed
[2017-12-30] MEDS: COLLAGENASE CLOSTRIDIUM HIST. 30 GRAMS TUBE TP SCH (13:09)
[2017-12-30] MEDS ORDERED: diphenhydrAMINE HCL 25 MG CAPSULE (FP) PO ONE (13:32)
--- NOTE | 2017-12-30 14:45 | PN ---
Progress Note (short form) - Note Progress Note: Renal follow up for ESRD on HD Pt seen and examined at the bedside on Dialysis BP high, goal UF is 3.5L access with good function Vital Signs Temperature 99 F 12/30/17 10:35 Pulse Rate 105 H 12/30/17 13:40 Respiratory Rate 18 12/30/17 13:40 Blood Pressure 195/101 H 12/30/17 13:40 O2 Sat by Pulse Oximetry (%) 94 L 12/30/17 09:54 Intake & Output 12/27/17 12/28/17 12/29/17 12/30/17 23:59 23:59 23:59 23:59 Intake Total 250 1468.4 1200 250 Output Total 0 0 0 Balance 250 1468.4 1200 250 Weight 69.309 kg 68.492 kg 68.492 kg 67.302 kg Mild SOB, on venti mask Neck supple MMM tachycardic, no M/R Dec BS b/l lung bases soft NT/ND Abd Trace to mild edema in LE CBC, BMP 12/30/17 10:40 12/30/17 10:40 Epoetin Abiel (Procrit -) 20,000 unit IVPUSH ONCE ONE Stop: 12/28/17 11:31 Last Admin: 12/28/17 11:22 Dose: 20,000 unit Heparin Sodium (Porcine) (Heparin -) 5,000 unit SQ BID [facility] Last Admin: 12/28/17 09:58 Dose: 5,000 unit Piperacillin Sod/Tazobactam (Sod 2.25 gm/ Dextrose) 50 mls @ 100 mls/hr IVPB Q8H-IV [facility]; Protocol Last Admin: 12/28/17 09:56 Dose: 100 mls/hr Sodium Chloride (Normal Saline -) 250 mls @ 3,000 mls/hr IV PRN PRN PRN Reason: Hypotension during Dialysis Stop: 12/28/17 20:01 Insulin Human Regular 100 (units/ Sodium Chloride) 100 mls @ 6.35 mls/hr IVPB TITR [facility]; Protocol Last Titration: 12/28/17 09:36 Dose: 0 units/kg/hr, 0 mls/hr Sodium Chloride (Normal Saline -) 1,000 mls @ 30 mls/hr IV ASDIR [facility] Last Admin: 12/28/17 01:00 Dose: 30 mls/hr Dextrose (D5w -) 1,000 mls @ 30 mls/hr IV [facility] Last Admin: 12/28/17 07:00 Dose: 30 mls/hr Sodium Chloride (Normal Saline -) 250 mls @ 3,000 mls/hr IV PRN PRN PRN Reason: Hypotension during Dialysis Stop: 12/29/17 07:59 Insulin Aspart (Novolog Vial Sliding Scale -) 1 vial SQ ACHS [facility]; Protocol Last Admin: 12/28/17 09:59 Dose: 6 units Insulin Detemir (Levemir Vial) 17 units SQ BID@0700,2200 [facility] Last Admin: 12/28/17 06:27 Dose: Not Given 27 year old woman with hx of ESRD on Hd (MWF), DM type 2, Hypertension, Hx fo PE , LE wounds, Chronic volume overload, Diastolic HF presented from home with complaints of SOB and admitted for Sepsis/PNA. #Sepsis secondary to RLL PNA #ESRD on Hd with Hyperkalemia #Metabolic acidosis from renal failure +/- DKA #DM type 1 with uncontrolled blood glucose #Anemia #Hypertension Tolerating dialyiss repeat CBC at end of dialysis may need PRBC tranfusion but can give with next dialysis tomorrow Continue Abx as per GONZALEZ Vo DO
--- NOTE | 2017-12-30 15:49 | PN ---
Progress Note, Physician History of Present Illness: stable doing well dialyzed breathing better - Current Medication List Current Medications: Active Medications Albuterol Sulfate (Ventolin 0.083% Nebulizer Soln -) 1 amp NEB RQID [facility] Last Admin: 12/30/17 15:15 Dose: 1 amp Clonidine (Catapres -) 0.3 mg PO TID [facility] Last Admin: 12/30/17 05:46 Dose: 0.3 mg Collagenase (Santyl -) 1 applic TP DAILY [facility]; Protocol Last Admin: 12/30/17 13:09 Dose: Not Given Gabapentin (Neurontin -) 300 mg PO BID [facility] Last Admin: 12/30/17 09:37 Dose: 300 mg Guaifenesin (Robitussin -) 10 ml PO Q8H PRN PRN Reason: COUGH Heparin Sodium (Porcine) (Heparin -) 5,000 unit SQ BID [facility] Last Admin: 12/30/17 09:38 Dose: Not Given Piperacillin Sod/Tazobactam (Sod 2.25 gm/ Dextrose) 50 mls @ 100 mls/hr IVPB Q8H-IV [facility]; Protocol Last Admin: 12/30/17 09:37 Dose: 100 mls/hr Sodium Chloride (Normal Saline -) 250 mls @ 3,000 mls/hr IV PRN PRN PRN Reason: Hypotension during Dialysis Stop: 12/31/17 09:12 Insulin Aspart (Novolog Vial Sliding Scale -) 1 vial SQ ACHS [facility]; Protocol Last Admin: 12/30/17 13:08 Dose: 4 units Insulin Detemir (Levemir Vial) 12 units SQ BID@0700,2200 [facility] Last Admin: 12/30/17 07:08 Dose: 12 units Labetalol HCl (Normodyne -) 400 mg PO BID [facility] Last Admin: 12/30/17 09:37 Dose: 400 mg Losartan Potassium (Cozaar -) 100 mg PO DAILY [facility] Last Admin: 12/30/17 09:37 Dose: 100 mg Oxycodone HCl (Roxicodone -) 10 mg PO Q6H PRN PRN Reason: PAIN LEVEL 6-10 Last Admin: 12/30/17 13:00 Dose: 10 mg - Objective Vital Signs: Vital Signs Temperature 99 F 12/30/17 10:35 Pulse Rate 104 H 12/30/17 15:00 Respiratory Rate 20 12/30/17 15:00 Blood Pressure 168/90 12/30/17 15:00 O2 Sat by Pulse Oximetry (%) 94 L 12/30/17 09:54 Constitutional: Yes: No Distress, Calm Cardiovascular: Yes: Regular Rate and Rhythm Respiratory: Yes: Regular, Poor Air Entry, Other Gastrointestinal: Yes: Normal Bowel Sounds, Soft Extremities: Yes: Other Neurological: Yes: Alert, Oriented Psychiatric: Yes: Alert, Oriented Labs: CBC, BMP 12/30/17 10:40 12/30/17 10:40 - ....Imaging Chest X-ray: Image Reviewed Assessment/Plan Acute Hypoxic Respiratory Failure Pneumonia Sepsis Diabetic Ketoacidosis improving ESRD on HD h/o LA Thrombus HTN plan cx report noted continue zosyn rest as per icu nutrition rest as per icu cc 40 min
--- NOTE | 2017-12-30 16:15 | PN ---
Progress Note, Physician - Current Medication List Current Medications: Active Medications Albuterol Sulfate (Ventolin 0.083% Nebulizer Soln -) 1 amp NEB RQID [facility] Last Admin: 12/30/17 15:15 Dose: 1 amp Clonidine (Catapres -) 0.3 mg PO TID [facility] Last Admin: 12/30/17 05:46 Dose: 0.3 mg Collagenase (Santyl -) 1 applic TP DAILY [facility]; Protocol Last Admin: 12/30/17 13:09 Dose: Not Given Gabapentin (Neurontin -) 300 mg PO BID [facility] Last Admin: 12/30/17 09:37 Dose: 300 mg Guaifenesin (Robitussin -) 10 ml PO Q8H PRN PRN Reason: COUGH Heparin Sodium (Porcine) (Heparin -) 5,000 unit SQ BID [facility] Last Admin: 12/30/17 09:38 Dose: Not Given Piperacillin Sod/Tazobactam (Sod 2.25 gm/ Dextrose) 50 mls @ 100 mls/hr IVPB Q8H-IV [facility]; Protocol Last Admin: 12/30/17 09:37 Dose: 100 mls/hr Sodium Chloride (Normal Saline -) 250 mls @ 3,000 mls/hr IV PRN PRN PRN Reason: Hypotension during Dialysis Stop: 12/31/17 09:12 Insulin Aspart (Novolog Vial Sliding Scale -) 1 vial SQ ACHS [facility]; Protocol Last Admin: 12/30/17 13:08 Dose: 4 units Insulin Detemir (Levemir Vial) 12 units SQ BID@0700,2200 [facility] Last Admin: 12/30/17 07:08 Dose: 12 units Labetalol HCl (Normodyne -) 400 mg PO BID [facility] Last Admin: 12/30/17 09:37 Dose: 400 mg Losartan Potassium (Cozaar -) 100 mg PO DAILY [facility] Last Admin: 12/30/17 09:37 Dose: 100 mg Oxycodone HCl (Roxicodone -) 10 mg PO Q6H PRN PRN Reason: PAIN LEVEL 6-10 Last Admin: 12/30/17 13:00 Dose: 10 mg - Objective Vital Signs: Vital Signs Temperature 99 F 12/30/17 10:35 Pulse Rate 104 H 12/30/17 15:00 Respiratory Rate 20 12/30/17 15:00 Blood Pressure 168/90 12/30/17 15:00 O2 Sat by Pulse Oximetry (%) 94 L 12/30/17 09:54 Labs: CBC, BMP 12/30/17 10:40 12/30/17 10:40
--- NOTE | 2017-12-30 17:12 | PN ---
Progress Note, Physician History of Present Illness: feeling good - Current Medication List Current Medications: Active Medications Albuterol Sulfate (Ventolin 0.083% Nebulizer Soln -) 1 amp NEB RQID [facility] Last Admin: 12/30/17 15:15 Dose: 1 amp Clonidine (Catapres -) 0.3 mg PO TID [facility] Last Admin: 12/30/17 15:00 Dose: 0.3 mg Collagenase (Santyl -) 1 applic TP DAILY [facility]; Protocol Last Admin: 12/30/17 13:09 Dose: Not Given Gabapentin (Neurontin -) 300 mg PO BID [facility] Last Admin: 12/30/17 09:37 Dose: 300 mg Guaifenesin (Robitussin -) 10 ml PO Q8H PRN PRN Reason: COUGH Heparin Sodium (Porcine) (Heparin -) 5,000 unit SQ BID [facility] Last Admin: 12/30/17 09:38 Dose: Not Given Piperacillin Sod/Tazobactam (Sod 2.25 gm/ Dextrose) 50 mls @ 100 mls/hr IVPB Q8H-IV [facility]; Protocol Last Admin: 12/30/17 09:37 Dose: 100 mls/hr Sodium Chloride (Normal Saline -) 250 mls @ 3,000 mls/hr IV PRN PRN PRN Reason: Hypotension during Dialysis Stop: 12/31/17 09:12 Insulin Aspart (Novolog Vial Sliding Scale -) 1 vial SQ ACHS [facility]; Protocol Last Admin: 12/30/17 16:54 Dose: 4 units Insulin Detemir (Levemir Vial) 12 units SQ BID@0700,2200 [facility] Last Admin: 12/30/17 07:08 Dose: 12 units Labetalol HCl (Normodyne -) 400 mg PO BID [facility] Last Admin: 12/30/17 09:37 Dose: 400 mg Losartan Potassium (Cozaar -) 100 mg PO DAILY [facility] Last Admin: 12/30/17 09:37 Dose: 100 mg Oxycodone HCl (Roxicodone -) 10 mg PO Q6H PRN PRN Reason: PAIN LEVEL 6-10 Last Admin: 12/30/17 13:00 Dose: 10 mg - Objective Vital Signs: Vital Signs Temperature 99 F 12/30/17 10:35 Pulse Rate 102 H 12/30/17 16:00 Respiratory Rate 20 12/30/17 16:00 Blood Pressure 163/97 12/30/17 16:00 O2 Sat by Pulse Oximetry (%) 94 L 12/30/17 09:54 Constitutional: Yes: No Distress HENT: Yes: Atraumatic Neck: Yes: Supple Cardiovascular: Yes: Regular Rate and Rhythm Respiratory: Yes: Rhonchi Gastrointestinal: Yes: Normal Bowel Sounds Extremities: Yes: Other (ulcers R carmen feet) Edema: Yes Edema: LLE: 2+, RLE: 2+ Neurological: Yes: Alert, Oriented Labs: CBC, BMP 12/30/17 10:40 12/30/17 10:40 Problem List - Problems (1) Fracture of ribs, multiple, closed Assessment/Plan: prn pain meds doing well Code(s): S22.49XA - MULTIPLE FRACTURES OF RIBS, UNSP SIDE, INIT FOR CLOS FX Qualifiers: Encounter type: subsequent encounter Laterality: right Fracture healing: with routine healing Qualified Code(s): S22.41XD - Multiple fractures of ribs , right side, subsequent encounter for fracture with routine healing (2) Pneumonia Assessment/Plan: on abx per id cxs sent recovering on NC Code(s): J18.9 - PNEUMONIA, UNSPECIFIED ORGANISM Qualifiers: Pneumonia type: due to unspecified organism Laterality: bilateral Lung location: lower lobe of lung Qualified Code(s): J18.1 - Lobar pneumonia, unspecified organism (3) ESRD (end stage renal disease) on dialysis Assessment/Plan: on hd renal on board Code(s): N18.6 - END STAGE RENAL DISEASE; Z99.2 - DEPENDENCE ON RENAL DIALYSIS (4) Diabetes mellitus, insulin dependent (IDDM), uncontrolled Assessment/Plan: on insulin bgms Code(s): E10.65 - TYPE 1 DIABETES MELLITUS WITH HYPERGLYCEMIA (5) Ulcer of right leg Code(s): L97.919 - NON-PRS CHRONIC ULC UNSP PRT OF R LOW LEG W UNSP SEVERITY Qualifiers: Non-pressure ulcer stage: with fat layer exposed Qualified Code(s): L97.912 - Non-pressure chronic ulcer of unspecified part of right lower leg with fat layer exposed (6) Anemia Assessment/Plan: fu cbc transfuse if needed Code(s): D64.9 - ANEMIA, UNSPECIFIED Qualifiers: Anemia type: due to chronic kidney disease Chronic kidney disease stage: on chronic dialysis Qualified Code(s): N18.6 - End stage renal disease; D63.1 - Anemia in chronic kidney disease; Z99.2 - Dependence on renal dialysis Assessment/Plan cc time 30 min
[2017-12-30 18:13] LABS: BASO % 0.6 % (0-2.0); EOS % 3.4 % (0-4.5); HEMATOCRIT 26.2 % (32.4-45.2); HEMOGLOBIN 8.3 GM/dL (10.7-15.3); LYMPH % 5.6 % (8-40); MCH 25.7 pg (25.7-33.7); MCHC 31.6 g/dl (32.0-36.0); MEAN CELL VOLUME 81.4 fl (80-96); MEAN PLT VOLUME 9.1 fl (7.5-11.1); MONO % 19.6 % (3.8-10.2); NEUT % 70.8 % (42.8-82.8); PLATELET COUNT 237 K/MM3 (134-434); RBC 3.22 M/mm3 (3.60-5.2); RDW 17.6 % (11.6-15.6); WHITE BLOOD COUNT 6.1 K/mm3 (4.0-10.0)
[2017-12-31] MEDS: PIPERACILLIN/TAZOB 2.25 GM 2.25 GM in DEXTROSE 5%-WATER - 50 ML IVPB SCH ×3 (02:07→18:24)
[2017-12-31] MEDS: INSULIN (LEVEMIR) 100 UNITS/ML UNITS SQ SCH ×2 (06:04→22:20)
[2017-12-31] MEDS: INSULIN SLIDING SCALE (NOVOLOG) 1 VIAL SQ SCH ×4 (06:04→22:19)
[2017-12-31] MEDS: cloNIDine HCL 0.1 MG TABLET PO SCH ×3 (06:06→21:01)
[2017-12-31 06:46] LABS: HEMOGLOBIN 7.5 GM/dL (10.7-15.3); MCH 25.8 pg (25.7-33.7); MCHC 31.4 g/dl (32.0-36.0); MEAN CELL VOLUME 82.2 fl (80-96); MEAN PLT VOLUME 9.2 fl (7.5-11.1); PLATELET COUNT 233 K/MM3 (134-434); RBC 2.91 M/mm3 (3.60-5.2); RDW 17.3 % (11.6-15.6); WHITE BLOOD COUNT 6.3 K/mm3 (4.0-10.0)
[2017-12-31 07:39] LABS: ANION GAP 9 MMOL/L (8-16); BLOOD UREA NITROGEN 25 mg/dL (7-18); CALCIUM 8.1 mg/dL (8.5-10.1); CHLORIDE 100 mmol/L (98-107); CO2 30 mmol/L (21-32); CREATININE 4.2 mg/dL (0.55-1.3); GLUCOSE,RANDOM 124 mg/dL (74-106); MAGNESIUM 2.1 mg/dL (1.8-2.4); PHOSPHOROUS 5.6 mg/dL (2.5-4.9); POTASSIUM 3.5 mmol/L (3.5-5.1); SODIUM 139 mmol/L (136-145)
[2017-12-31] MEDS: ALBUTEROL SO4 0.083% IH SOL 2.5 MG/3 ML VIAL.NEB. NEB SCH ×4 (07:40→19:58)
[2017-12-31] MEDS ORDERED: oxyCODONE HCL 5 MG TABLET ONE (10:22)
[2017-12-31] MEDS ORDERED: PIPERACILLIN/TAZOBACTAM 2.25 GM VIAL IVPB ONE ×2 (10:22→17:51)
[2017-12-31] MEDS ORDERED: DEXTROSE 5%-WATER - 50 ML IVPB ONE ×2 (10:23→17:52)
[2017-12-31] MEDS: oxyCODONE HCL 5 MG TABLET PO PRN ×2 (10:26→22:07)
[2017-12-31] MEDS: LOSARTAN POTASSIUM 50 MG TABLET (FP) PO SCH (10:26)
[2017-12-31] MEDS: LABETALOL HCL 200 MG TABLET (FP) PO SCH ×2 (10:26→21:01)
[2017-12-31] MEDS: HEPARIN NA (PORCINE) 5,000 UNITS/ML 1ML VIAL SQ SCH ×2 (10:27→21:02)
[2017-12-31] MEDS: COLLAGENASE CLOSTRIDIUM HIST. 30 GRAMS TUBE TP SCH (10:27)
[2017-12-31] MEDS: GABAPENTIN 300 MG CAPSULE (FP) PO SCH ×2 (10:27→21:01)
[2017-12-31 12:27] LABS: ANISOCYTOSIS 1+; MACROCYTOSIS 0; PLATELET ESTIMATE NORMAL
--- NOTE | 2017-12-31 12:28 | PN ---
Teaching Attending Note Name of Resident: Jeramie Paez ATTENDING PHYSICIAN STATEMENT I saw and evaluated the patient. I reviewed the resident's note and discussed the case with the resident. I agree with the resident's findings and plan as documented. SUBJECTIVE: Patient seen and examined in the ICU. Remains on NC O2. Breathing feels a little better. Still with generalized body aches. Intake & Output 12/28/17 12/29/17 12/30/17 12/31/17 23:59 23:59 23:59 23:59 Intake Total 1468.4 1200 1050 900 Output Total 0 0 0 Balance 1468.4 1200 1050 900 Weight 151 lb 151 lb 148 lb 6 oz 145 lb 8 oz Last Vital Signs Temp Pulse Resp BP Pulse Ox 98.9 F 98 H 18 173/101 H 96 12/31/17 02:00 12/31/17 11:00 12/31/17 11:00 12/31/17 11:00 12/31/17 11:00 Active Medications Albuterol Sulfate (Ventolin 0.083% Nebulizer Soln -) 1 amp NEB RQID [facility] Last Admin: 12/31/17 07:40 Dose: 1 amp Clonidine (Catapres -) 0.3 mg PO TID [facility] Last Admin: 12/31/17 06:06 Dose: 0.3 mg Collagenase (Santyl -) 1 applic TP DAILY [facility]; Protocol Last Admin: 12/31/17 10:27 Dose: 1 applic Gabapentin (Neurontin -) 300 mg PO BID [facility] Last Admin: 12/31/17 10:27 Dose: 300 mg Guaifenesin (Robitussin -) 10 ml PO Q8H PRN PRN Reason: COUGH Heparin Sodium (Porcine) (Heparin -) 5,000 unit SQ BID [facility] Last Admin: 12/31/17 10:27 Dose: 5,000 unit Piperacillin Sod/Tazobactam (Sod 2.25 gm/ Dextrose) 50 mls @ 100 mls/hr IVPB Q8H-IV [facility]; Protocol Last Admin: 12/31/17 10:27 Dose: 100 mls/hr Insulin Aspart (Novolog Vial Sliding Scale -) 1 vial SQ ACHS [facility]; Protocol Last Admin: 12/31/17 06:04 Dose: 2 units Insulin Detemir (Levemir Vial) 12 units SQ BID@0700,2200 [facility] Last Admin: 12/31/17 06:04 Dose: 12 units Labetalol HCl (Normodyne -) 400 mg PO BID [facility] Last Admin: 12/31/17 10:26 Dose: 400 mg Losartan Potassium (Cozaar -) 100 mg PO DAILY [facility] Last Admin: 12/31/17 10:26 Dose: 100 mg GENERAL: Awake, alert, and oriented. Mildly tachypneic at rest HEAD: Normal with no signs of trauma. EYES: Puffy eyes, pallor +, no icterus. EARS, NOSE, THROAT: Ears normal. Moist mucous membranes. NECK: Supple. LUNGS: Mildly tachypenic, bibasilar rhonchi Right > Left. No wheezes. HEART: Tachycardic, Regular rate and rhythm, normal S1 and S2 with systolic murmur. ABDOMEN: Soft, nontender,no organomegaly. MUSCULOSKELETAL: Normal range of motion at all joints. No bony deformities or tenderness. No CVA tenderness. UPPER EXTREMITIES: LUE AVF functioning, 2+ pulses, warm. LOWER EXTREMITIES: Edematous with multiple areas of dressed wounds. NEUROLOGICAL: Non-focal. PSYCHIATRIC: Cooperative. SKIN: Warm, multiple wounds/ulcers. Laboratory Results - last 24 hr 12/30/17 12/30/17 12/30/17 12:52 16:49 17:15 WBC 6.1 RBC 3.22 L Hgb 8.3 L Hct 26.2 L MCV 81.4 MCH 25.7 MCHC 31.6 L RDW 17.6 H Plt Count 237 MPV 9.1 Absolute Neuts (auto) 4.3 Neutrophils % 70.8 Lymphocytes % 5.6 L Monocytes % 19.6 H D Eosinophils % 3.4 Basophils % 0.6 Nucleated RBC % 0 Sodium Potassium Chloride Carbon Dioxide Anion Gap BUN Creatinine Creat Clearance w eGFR POC Glucometer 255.63901 260.38071 Random Glucose Calcium Phosphorus Magnesium 12/30/17 12/31/17 12/31/17 21:53 05:30 05:30 WBC 6.3 RBC 2.91 L Hgb 7.5 L Hct 24.0 L MCV 82.2 MCH 25.8 MCHC 31.4 L RDW 17.3 H Plt Count 233 MPV 9.2 Absolute Neuts (auto) 3.8 Neutrophils % No Result Required. Lymphocytes % No Result Required. Monocytes % Eosinophils % Basophils % Nucleated RBC % 0 Sodium 139 Potassium 3.5 Chloride 100 Carbon Dioxide 30 Anion Gap 9 BUN 25 H Creatinine 4.2 H Creat Clearance w eGFR 12.60 POC Glucometer 327.18420 Random Glucose 124 H Calcium 8.1 L Phosphorus 5.6 H Magnesium 2.1 12/31/17 05:48 WBC RBC Hgb Hct MCV MCH MCHC RDW Plt Count MPV Absolute Neuts (auto) Neutrophils % Lymphocytes % Monocytes % Eosinophils % Basophils % Nucleated RBC % Sodium Potassium Chloride Carbon Dioxide Anion Gap BUN Creatinine Creat Clearance w eGFR POC Glucometer 142.00694 Random Glucose Calcium Phosphorus Magnesium IMP: Acute Respiratory failure requiring HF NC O2 ESRD on HD (M,W,F LUE AVF) IDDM HTN PVD Atrial thrombus Cardiac Arrest by history Suspected Pneumonia Right Foot ulcer History of Non-compliance Rib Fracture Do not suspect ARDS at this time Hyperglycemia: do not suspect DKA NC O2 as tolerated HD for volume removal Aspiration precautions ABX per ID BD TX Follow cultures Follow CXR Pain control Incentive spirometry Monitor off steroids for now due to significant hyperglycemia Glycemic control Cardiac Telemetry monitoring Dr Ballesteros
--- NOTE | 2017-12-31 13:13 | PN ---
Progress Note (short form) - Note Progress Note: Renal follow up for ESRD on HD Pt seen and examined at the bedside has mild discomfort with deep inspiration no overt sob no cp, abd pain, N/V/D s/p dialysis yesterday s/p prbc transfusion yesterday Vital Signs Temperature 98.9 F 12/31/17 02:00 Pulse Rate 98 H 12/31/17 11:00 Respiratory Rate 18 12/31/17 11:00 Blood Pressure 173/101 H 12/31/17 11:00 O2 Sat by Pulse Oximetry (%) 96 12/31/17 11:00 Intake & Output 12/28/17 12/29/17 12/30/17 12/31/17 23:59 23:59 23:59 23:59 Intake Total 1468.4 1200 1050 900 Output Total 0 0 0 Balance 1468.4 1200 1050 900 Weight 68.492 kg 68.492 kg 67.302 kg 65.998 kg Mild SOB, on venti mask Neck supple MMM tachycardic, no M/R Dec BS b/l lung bases soft NT/ND Abd Trace to mild edema in LE CBC, BMP 12/31/17 05:30 12/31/17 05:30 Current Medications Albuterol Sulfate (Ventolin 0.083% Nebulizer Soln -) 1 amp NEB RQID [facility] Last Admin: 12/31/17 12:45 Dose: 1 amp Clonidine (Catapres -) 0.3 mg PO TID [facility] Last Admin: 12/31/17 06:06 Dose: 0.3 mg Collagenase (Santyl -) 1 applic TP DAILY [facility]; Protocol Last Admin: 12/31/17 10:27 Dose: 1 applic Gabapentin (Neurontin -) 300 mg PO BID [facility] Last Admin: 12/31/17 10:27 Dose: 300 mg Guaifenesin (Robitussin -) 10 ml PO Q8H PRN PRN Reason: COUGH Heparin Sodium (Porcine) (Heparin -) 5,000 unit SQ BID [facility] Last Admin: 12/31/17 10:27 Dose: 5,000 unit Piperacillin Sod/Tazobactam (Sod 2.25 gm/ Dextrose) 50 mls @ 100 mls/hr IVPB Q8H-IV [facility]; Protocol Last Admin: 12/31/17 10:27 Dose: 100 mls/hr Insulin Aspart (Novolog Vial Sliding Scale -) 1 vial SQ ACHS [facility]; Protocol Last Admin: 12/31/17 06:04 Dose: 2 units Insulin Detemir (Levemir Vial) 12 units SQ BID@0700,2200 [facility] Last Admin: 12/31/17 06:04 Dose: 12 units Labetalol HCl (Normodyne -) 400 mg PO BID [facility] Last Admin: 12/31/17 10:26 Dose: 400 mg Losartan Potassium (Cozaar -) 100 mg PO DAILY [facility] Last Admin: 12/31/17 10:26 Dose: 100 mg 27 year old woman with hx of ESRD on Hd (MWF), DM type 2, Hypertension, Hx fo PE , LE wounds, Chronic volume overload, Diastolic HF presented from home with complaints of SOB and admitted for Sepsis/PNA. #Sepsis secondary to RLL PNA #ESRD on Hd with Hyperkalemia #Metabolic acidosis from renal failure +/- DKA #DM type 1 with uncontrolled blood glucose #Anemia #Hypertension no acute indication for [employer] today next treatment planned for tomorrow maintain fluid restriction continue Abx as pre ID Will plan on PRBC transfusion tomorrow with HD as well as MACIE Continue Losartan/Labetalol restart Nifedpine 90mg Daily Low salt diet Nathan Vo DO
--- NOTE | 2017-12-31 13:17 | PN ---
Physical Exam: SUBJECTIVE: Patient seen and examined. No acute events overnight. Pt. denies chest pain, shortness of breath, or any other complaints or symptoms. Pt. refused Procardia 90mg ( Dr. Vo) today. Per Pt. she "only takes Procardia when her BP is through the roof, but not when her SBP is 145." Rpt. BP was 191/ 104, discussed with patient the need for good BP control, Pt amenable to taking Procardia 30 mg. @9pm Pt. is amenable to taking an additional 30mg Procardia in addition to regular BP meds for better BP control. OBJECTIVE: Vital Signs Period Temp Pulse Resp BP Sys/Ames Pulse Ox Last 24 Hr 98.9 F-99 F 79-105 15-24 134-195/78-113 96-99 GENERAL: The patient is awake, alert, and fully oriented, lying in no acute distress. HEAD: Normal with no signs of trauma. EYES: sclera anicteric, conjunctiva clear. No ptosis. ENT: Ears normal, nares patent, moist mucous membranes. LUNGS: improving crackles in RLL and slightly in LLL, no accessory muscle use. HEART: Regular rate and rhythm, S1, S2 without murmur, rub or gallop. ABDOMEN: Soft, nontender, nondistended, normoactive bowel sounds, no guarding, no rebound EXTREMITIES: 1+ right radial pulse, thrills in [place], LEs no pulse appreciated and were anasarcic, warm, no calf tenderness NEUROLOGICAL: Normal speech, gait not observed. PSYCH: Normal mood, normal affect. SKIN: Anasarca in LEs with right leg ulcers. Laboratory Results - last 24 hr 12/30/17 12/30/17 12/30/17 12:52 16:49 17:15 WBC 6.1 RBC 3.22 L Hgb 8.3 L Hct 26.2 L MCV 81.4 MCH 25.7 MCHC 31.6 L RDW 17.6 H Plt Count 237 MPV 9.1 Absolute Neuts (auto) 4.3 Neutrophils % 70.8 Neutrophils % (Manual) Band Neutrophils % Lymphocytes % 5.6 L Lymphocytes % (Manual) Monocytes % 19.6 H D Monocytes % (Manual) Eosinophils % 3.4 Eosinophils % (Manual) Basophils % 0.6 Basophils % (Manual) Myelocytes % (Man) Promyelocytes % (Man) Blast Cells % (Manual) Nucleated RBC % 0 Metamyelocytes Hypochromia Platelet Estimate Polychromasia Poikilocytosis Anisocytosis Microcytosis Macrocytosis Sodium Potassium Chloride Carbon Dioxide Anion Gap BUN Creatinine Creat Clearance w eGFR POC Glucometer 255.76068 260.49058 Random Glucose Calcium Phosphorus Magnesium 12/30/17 12/31/17 12/31/17 21:53 05:30 05:30 WBC 6.3 RBC 2.91 L Hgb 7.5 L Hct 24.0 L MCV 82.2 MCH 25.8 MCHC 31.4 L RDW 17.3 H Plt Count 233 MPV 9.2 Absolute Neuts (auto) 3.8 Neutrophils % No Result Required. Neutrophils % (Manual) 54.9 Band Neutrophils % 6.8 Lymphocytes % No Result Required. Lymphocytes % (Manual) 16.7 D Monocytes % Monocytes % (Manual) 17 H D Eosinophils % Eosinophils % (Manual) 4.9 H D Basophils % Basophils % (Manual) 0.0 Myelocytes % (Man) 0 Promyelocytes % (Man) 0 Blast Cells % (Manual) 0 Nucleated RBC % 0 Metamyelocytes 0 Hypochromia 1+ Platelet Estimate Normal Polychromasia 1+ Poikilocytosis 0 Anisocytosis 1+ Microcytosis 1+ Macrocytosis 0 Sodium 139 Potassium 3.5 Chloride 100 Carbon Dioxide 30 Anion Gap 9 BUN 25 H Creatinine 4.2 H Creat Clearance w eGFR 12.60 POC Glucometer 327.07031 Random Glucose 124 H Calcium 8.1 L Phosphorus 5.6 H Magnesium 2.1 12/31/17 12/31/17 05:48 11:57 WBC RBC Hgb Hct MCV MCH MCHC RDW Plt Count MPV Absolute Neuts (auto) Neutrophils % Neutrophils % (Manual) Band Neutrophils % Lymphocytes % Lymphocytes % (Manual) Monocytes % Monocytes % (Manual) Eosinophils % Eosinophils % (Manual) Basophils % Basophils % (Manual) Myelocytes % (Man) Promyelocytes % (Man) Blast Cells % (Manual) Nucleated RBC % Metamyelocytes Hypochromia Platelet Estimate Polychromasia Poikilocytosis Anisocytosis Microcytosis Macrocytosis Sodium Potassium Chloride Carbon Dioxide Anion Gap BUN Creatinine Creat Clearance w eGFR POC Glucometer 142.58502 176.96618 Random Glucose Calcium Phosphorus Magnesium Active Medications Current Medications Albuterol Sulfate (Ventolin 0.083% Nebulizer Soln -) 1 amp NEB RQID [facility] Last Admin: 12/31/17 12:45 Dose: 1 amp Clonidine (Catapres -) 0.3 mg PO TID [facility] Last Admin: 12/31/17 06:06 Dose: 0.3 mg Collagenase (Santyl -) 1 applic TP DAILY [facility]; Protocol Last Admin: 12/31/17 10:27 Dose: 1 applic Gabapentin (Neurontin -) 300 mg PO BID [facility] Last Admin: 12/31/17 10:27 Dose: 300 mg Guaifenesin (Robitussin -) 10 ml PO Q8H PRN PRN Reason: COUGH Heparin Sodium (Porcine) (Heparin -) 5,000 unit SQ BID [facility] Last Admin: 12/31/17 10:27 Dose: 5,000 unit Piperacillin Sod/Tazobactam (Sod 2.25 gm/ Dextrose) 50 mls @ 100 mls/hr IVPB Q8H-IV [facility]; Protocol Last Admin: 12/31/17 10:27 Dose: 100 mls/hr Insulin Aspart (Novolog Vial Sliding Scale -) 1 vial SQ ACHS [facility]; Protocol Last Admin: 12/31/17 06:04 Dose: 2 units Insulin Detemir (Levemir Vial) 12 units SQ BID@0700,2200 [facility] Last Admin: 12/31/17 06:04 Dose: 12 units Labetalol HCl (Normodyne -) 400 mg PO BID [facility] Last Admin: 12/31/17 10:26 Dose: 400 mg Losartan Potassium (Cozaar -) 100 mg PO DAILY [facility] Last Admin: 12/31/17 10:26 Dose: 100 mg Nifedipine (Procardia Xl -) 90 mg PO DAILY [facility] ASSESSMENT/PLAN: Patient is a 27 year old female, well known to [facility], with significant past medical history of HD (M,W,F LUE AVF), IDDM, HTN, PVD, Atrial thrombus, Cardiac Arrest, Pneumonia, Right Foot ulcer, non compliance was brought in via EMS with the chief complaints of shortness of breath x 1 day. # Respiratory -Acute hypoxic respiratory failure likely secondary to sepsis from pneumonia Resolving- Pt. is on 3L NC at home Weaned off High flow to 4L NC CXR shows improving RLL consolidation D/C Vancomycin IV Zosyn 2.25 gm IV Q8H (Renally dosed) ID on board (Dr. Rodrigues) -Multiple right rib fractures s/p fall last week CT chest 12/23/17: Multlple partially healed fractures in the right Pain control w/ oxycodone 10mg Q6H PRN Incentive spirometry 10x/hour # Integumentary -Diabetic foot ulcer Sepsis could also be from wounds. Was recently treated with IV Levaquin and Flagyl for RLE cellulitis and abscess Has Purulent diabetic ulcer 1.5 x 1.3, fowl smelling On IV Zosyn 2.25 gm IV Q8H, ID on board 12/07/17 wound culture grew Serratia Marcescens Dr. Dubon and Dr. Carr on board- C/w daily Santyl to wounds then iodoform packing, will apply wound vac at some point in the future once wounds look clean enough. -Clavicular lesion CT chest 12/23/17 clavicular lesion suggesting brown tumor? Would recommend bone biopsy when stable. # Cardiovascular -Hypertension Echo(12/28/17) appreciated: EF: 65%, Mild concentric LVH-Grade 1, mild TR, trace MR, LA and RA nml size and fxn., mild pulmonary HTN, C/w Clonidine C/w Labetalol and Losartan with holding parameters # Endocrinology -Hyperglycemia vs. DKA vs. HHS- resolved C/w Levemir 12 units BID, titrating up as needed based on PO intake D/c- Insulin drip ISS D/c IVf Endocrine consult appreciate(Dr. Cassidy) # Renal -ESRD on HD MWF HD completed today BMP shows BUN/Cr. of 48/5.7---> f/u post HD CBC Nephrology consult with Dr. Vo appreciated Per Pt. she takes 50mg Benadryl after HD- approved by Dr. Vo # Hematology -Normocytic anemia 2/2 ESRD H/H: 7.5/24.4 (12/31/17) will receive 2 units pRBCs during HD tomorrow-per Dr. Vo Transfuse if Hb is <7/Hct <25. Monitor for any bleeding. # F/E/N D/c IVF encourage PO intake Monitor electrolytes and replete as needed Diabetic diet? Pt. has family members bringing her [employer] # Prophylaxis -DVT: Heparin sq -GI: Not indicated # Code Status: Full Code Visit type - Emergency Visit Emergency Visit: Yes ED Registration Date: 12/27/17 Care time: The patient presented to the Emergency Department on the above date and was hospitalized for further evaluation of their emergent condition. - New Patient This patient is new to me today: No - Critical Care Critical Care patient: Yes Total Critical Care Time (in minutes): 42 Critical Care Statement: The care of this patient involved high complexity decision making to prevent further life threatening deterioration of the patient 's condition and/or to evaluate & treat vital organ system(s) failure or risk of failure. - Discharge Referral Referred to [facility] Med P.[facility].: No
--- NOTE | 2017-12-31 13:50 | PN ---
Progress Note, Physician History of Present Illness: looking much better breathing better pain still present - Current Medication List Current Medications: Active Medications Albuterol Sulfate (Ventolin 0.083% Nebulizer Soln -) 1 amp NEB RQID [facility] Last Admin: 12/31/17 12:45 Dose: 1 amp Clonidine (Catapres -) 0.3 mg PO TID [facility] Last Admin: 12/31/17 06:06 Dose: 0.3 mg Collagenase (Santyl -) 1 applic TP DAILY [facility]; Protocol Last Admin: 12/31/17 10:27 Dose: 1 applic Gabapentin (Neurontin -) 300 mg PO BID [facility] Last Admin: 12/31/17 10:27 Dose: 300 mg Guaifenesin (Robitussin -) 10 ml PO Q8H PRN PRN Reason: COUGH Heparin Sodium (Porcine) (Heparin -) 5,000 unit SQ BID [facility] Last Admin: 12/31/17 10:27 Dose: 5,000 unit Piperacillin Sod/Tazobactam (Sod 2.25 gm/ Dextrose) 50 mls @ 100 mls/hr IVPB Q8H-IV [facility]; Protocol Last Admin: 12/31/17 10:27 Dose: 100 mls/hr Insulin Aspart (Novolog Vial Sliding Scale -) 1 vial SQ ACHS [facility]; Protocol Last Admin: 12/31/17 06:04 Dose: 2 units Insulin Detemir (Levemir Vial) 12 units SQ BID@0700,2200 [facility] Last Admin: 12/31/17 06:04 Dose: 12 units Labetalol HCl (Normodyne -) 400 mg PO BID [facility] Last Admin: 12/31/17 10:26 Dose: 400 mg Losartan Potassium (Cozaar -) 100 mg PO DAILY [facility] Last Admin: 12/31/17 10:26 Dose: 100 mg Nifedipine (Procardia Xl -) 90 mg PO DAILY [facility] - Objective Vital Signs: Vital Signs Temperature 98.9 F 12/31/17 02:00 Pulse Rate 98 H 12/31/17 11:00 Respiratory Rate 18 12/31/17 11:00 Blood Pressure 173/101 H 12/31/17 11:00 O2 Sat by Pulse Oximetry (%) 96 12/31/17 11:00 Constitutional: Yes: No Distress, Calm Cardiovascular: Yes: Regular Rate and Rhythm Respiratory: Yes: Regular, Poor Air Entry, Rhonchi Gastrointestinal: Yes: Normal Bowel Sounds, Soft Extremities: Yes: Other Wound/Incision: Yes: Dressing Dry and Intact Neurological: Yes: Alert, Oriented Psychiatric: Yes: Alert, Oriented Labs: CBC, BMP 12/31/17 05:30 12/31/17 05:30 Assessment/Plan Acute Hypoxic Respiratory Failure Pneumonia Sepsis Diabetic Ketoacidosis improving ESRD on HD h/o LA Thrombus HTN plan cx report noted continue zosyn rest as per icu nutrition once patient stable completely will deescalate abx cc 40 min
[2017-12-31] MEDS: NIFEdipine E.R. 90 MG TABLET (FP) PO SCH ×2 (14:18→14:36)
--- NOTE | 2017-12-31 15:21 | PN ---
Progress Note, Physician History of Present Illness: Dyspnea improving on HFO2, undergoing HD, BP elevated, resumed Procardia XL. - Current Medication List Current Medications: Active Medications Albuterol Sulfate (Ventolin 0.083% Nebulizer Soln -) 1 amp NEB RQID [facility] Last Admin: 12/31/17 12:45 Dose: 1 amp Clonidine (Catapres -) 0.3 mg PO TID [facility] Last Admin: 12/31/17 14:18 Dose: 0.3 mg Collagenase (Santyl -) 1 applic TP DAILY [facility]; Protocol Last Admin: 12/31/17 10:27 Dose: 1 applic Gabapentin (Neurontin -) 300 mg PO BID [facility] Last Admin: 12/31/17 10:27 Dose: 300 mg Guaifenesin (Robitussin -) 10 ml PO Q8H PRN PRN Reason: COUGH Heparin Sodium (Porcine) (Heparin -) 5,000 unit SQ BID [facility] Last Admin: 12/31/17 10:27 Dose: 5,000 unit Piperacillin Sod/Tazobactam (Sod 2.25 gm/ Dextrose) 50 mls @ 100 mls/hr IVPB Q8H-IV [facility]; Protocol Last Admin: 12/31/17 10:27 Dose: 100 mls/hr Insulin Aspart (Novolog Vial Sliding Scale -) 1 vial SQ ACHS [facility]; Protocol Last Admin: 12/31/17 12:15 Dose: 3 units Insulin Detemir (Levemir Vial) 13 units SQ BID@0700,2200 [facility] Labetalol HCl (Normodyne -) 400 mg PO BID [facility] Last Admin: 12/31/17 10:26 Dose: 400 mg Losartan Potassium (Cozaar -) 100 mg PO DAILY [facility] Last Admin: 12/31/17 10:26 Dose: 100 mg Nifedipine (Procardia Xl -) 90 mg PO DAILY [facility] Last Admin: 12/31/17 14:36 Dose: Not Given - Objective Vital Signs: Vital Signs Temperature 98.9 F 12/31/17 02:00 Pulse Rate 94 H 12/31/17 13:00 Respiratory Rate 20 12/31/17 13:00 Blood Pressure 144/89 12/31/17 13:00 O2 Sat by Pulse Oximetry (%) 96 12/31/17 11:00 Constitutional: Yes: No Distress, Calm, Thin Neck: Yes: Supple Cardiovascular: Yes: Regular Rate and Rhythm Respiratory: Yes: Regular, Diminished, On Nasal O2 Gastrointestinal: Yes: Normal Bowel Sounds, Soft Edema: No Labs: CBC, BMP 12/31/17 05:30 12/31/17 05:30 Problem List - Problems (1) Diastolic dysfunction with heart failure Code(s): I50.30 - UNSPECIFIED DIASTOLIC (CONGESTIVE) HEART FAILURE Qualifiers: Heart failure chronicity: acute on chronic Qualified Code(s): I50.33 - Acute on chronic diastolic (congestive) heart failure (2) DKA, type 1 Code(s): E10.10 - TYPE 1 DIABETES MELLITUS WITH KETOACIDOSIS WITHOUT COMA Qualifiers: Diabetes mellitus complication detail: without coma Qualified Code(s): E10.10 - Type 1 diabetes mellitus with ketoacidosis without coma (3) Pneumonia Code(s): J18.9 - PNEUMONIA, UNSPECIFIED ORGANISM Qualifiers: Pneumonia type: due to unspecified organism Laterality: bilateral Lung location: lower lobe of lung Qualified Code(s): J18.1 - Lobar pneumonia, unspecified organism (4) ESRD (end stage renal disease) on dialysis Code(s): N18.6 - END STAGE RENAL DISEASE; Z99.2 - DEPENDENCE ON RENAL DIALYSIS (6) Fluid overload Code(s): E87.70 - FLUID OVERLOAD, UNSPECIFIED Qualifiers: Hypervolemia type: other Qualified Code(s): E87.79 - Other fluid overload (7) Respiratory failure Code(s): J96.90 - RESPIRATORY FAILURE, UNSP, UNSP W HYPOXIA OR HYPERCAPNIA (8) HTN (hypertension) Code(s): I10 - ESSENTIAL (PRIMARY) HYPERTENSION Qualifiers: Hypertension type: unspecified Qualified Code(s): I10 - Essential (primary ) hypertension (9) Anemia Code(s): D64.9 - ANEMIA, UNSPECIFIED Qualifiers: Anemia type: due to chronic kidney disease Chronic kidney disease stage: on chronic dialysis Qualified Code(s): N18.6 - End stage renal disease; D63.1 - Anemia in chronic kidney disease; Z99.2 - Dependence on renal dialysis Assessment/Plan 12/28/2017 Echo: Normal LV size and fxn, mild cLVH, grade I diastolic dysfunction, normal RV size and fxn, normal atrial sizes, mild TR 1. Acute Hypoxic Respiratory Failure - Pneumonia, sepsis 2. Post rapid response 3. Diastolic LV dysfunction with class I NYHA classification LV failure, volume overload 4. History of LA myxoma post resection 5. History of LA thrombus, unclear etiology and timing 6. HTN 7. IDDM 8. ESRD on HD (M,W,F LUE AVF) 9. PVD Right Foot ulcer 10. Anemia of CKD PLAN: 1. Complete antibiotic course as per the primary team 2. HD/UF as per renal service 3. Continue on home regimen of Catapres, labetolol 400 bid and losartan 100qd, agree with Procardia XL 90 qd resumption 4. Taper off HFOT, keep SpO2 >90%, BD as needed, DVT prophylaxis
[2017-12-31] MEDS ORDERED: NIFEdipine E.R. 30 MG TABLET (FP) PO SCH (17:45)
[2017-12-31] MEDS ORDERED: FLU VACCINE QUAD 60 MCG/0.5 ML (MDV 18-19) IM ONE (18:45)
--- NOTE | 2017-12-31 18:52 | PN ---
Progress Note, Physician History of Present Illness: feeling good - Current Medication List Current Medications: Active Medications Albuterol Sulfate (Ventolin 0.083% Nebulizer Soln -) 1 amp NEB RQID [facility] Last Admin: 12/31/17 16:45 Dose: 1 amp Clonidine (Catapres -) 0.3 mg PO TID [facility] Last Admin: 12/31/17 14:18 Dose: 0.3 mg Collagenase (Santyl -) 1 applic TP DAILY [facility]; Protocol Last Admin: 12/31/17 10:27 Dose: 1 applic Gabapentin (Neurontin -) 300 mg PO BID [facility] Last Admin: 12/31/17 10:27 Dose: 300 mg Guaifenesin (Robitussin -) 10 ml PO Q8H PRN PRN Reason: COUGH Heparin Sodium (Porcine) (Heparin -) 5,000 unit SQ BID [facility] Last Admin: 12/31/17 10:27 Dose: 5,000 unit Piperacillin Sod/Tazobactam (Sod 2.25 gm/ Dextrose) 50 mls @ 100 mls/hr IVPB Q8H-IV [facility]; Protocol Last Admin: 12/31/17 18:24 Dose: 100 mls/hr Insulin Aspart (Novolog Vial Sliding Scale -) 1 vial SQ ACHS [facility]; Protocol Last Admin: 12/31/17 17:48 Dose: 5 units Insulin Detemir (Levemir Vial) 13 units SQ BID@0700,2200 [facility] Labetalol HCl (Normodyne -) 400 mg PO BID [facility] Last Admin: 12/31/17 10:26 Dose: 400 mg Losartan Potassium (Cozaar -) 100 mg PO DAILY [facility] Last Admin: 12/31/17 10:26 Dose: 100 mg Nifedipine (Procardia Xl -) 30 mg PO DAILY [facility] Last Admin: 12/31/17 17:49 Dose: 30 mg - Objective Vital Signs: Vital Signs Temperature 98.9 F 12/31/17 02:00 Pulse Rate 86 12/31/17 18:25 Respiratory Rate 20 12/31/17 18:25 Blood Pressure 179/96 H 12/31/17 18:25 O2 Sat by Pulse Oximetry (%) 96 12/31/17 11:00 Constitutional: Yes: No Distress HENT: Yes: Atraumatic Neck: Yes: Supple Cardiovascular: Yes: Regular Rate and Rhythm Respiratory: Yes: Rhonchi Gastrointestinal: Yes: Normal Bowel Sounds Extremities: Yes: Other (cellulitis r carmen wounds both feed...improving) Edema: Yes Edema: LLE: 2+, RLE: 2+ Peripheral Pulses WNL: Yes Neurological: Yes: Alert, Oriented Labs: CBC, BMP 12/31/17 05:30 12/31/17 05:30 Problem List - Problems (1) Fracture of ribs, multiple, closed Assessment/Plan: prn pain meds doing well Code(s): S22.49XA - MULTIPLE FRACTURES OF RIBS, UNSP SIDE, INIT FOR CLOS FX Qualifiers: Encounter type: subsequent encounter Laterality: right Fracture healing: with routine healing Qualified Code(s): S22.41XD - Multiple fractures of ribs , right side, subsequent encounter for fracture with routine healing (2) Pneumonia Assessment/Plan: on abx per id cxs sent recovering on NC Code(s): J18.9 - PNEUMONIA, UNSPECIFIED ORGANISM Qualifiers: Pneumonia type: due to unspecified organism Laterality: bilateral Lung location: lower lobe of lung Qualified Code(s): J18.1 - Lobar pneumonia, unspecified organism (3) ESRD (end stage renal disease) on dialysis Assessment/Plan: on hd renal on board Code(s): N18.6 - END STAGE RENAL DISEASE; Z99.2 - DEPENDENCE ON RENAL DIALYSIS (4) Diabetes mellitus, insulin dependent (IDDM), uncontrolled Assessment/Plan: on insulin bgms Code(s): E10.65 - TYPE 1 DIABETES MELLITUS WITH HYPERGLYCEMIA (5) Ulcer of right leg Code(s): L97.919 - NON-PRS CHRONIC ULC UNSP PRT OF R LOW LEG W UNSP SEVERITY Qualifiers: Non-pressure ulcer stage: with fat layer exposed Qualified Code(s): L97.912 - Non-pressure chronic ulcer of unspecified part of right lower leg with fat layer exposed (6) Anemia Assessment/Plan: fu cbc transfuse if needed Code(s): D64.9 - ANEMIA, UNSPECIFIED Qualifiers: Anemia type: due to chronic kidney disease Chronic kidney disease stage: on chronic dialysis Qualified Code(s): N18.6 - End stage renal disease; D63.1 - Anemia in chronic kidney disease; Z99.2 - Dependence on renal dialysis
[2017-12-31] MEDS ORDERED: NIFEdipine E.R. 30 MG TABLET (FP) PO ONE (19:45)
--- NOTE | 2017-12-31 23:00 | PN ---
Progress Note, Physician Chief Complaint: short of breath,sugars improving History of Present Illness: dm,type 1,sp dka,esrd,chf,diabetic foot infection,chronic wound infection, recurrent dka compliance and medication gaps - Current Medication List Current Medications: Active Medications Albuterol Sulfate (Ventolin 0.083% Nebulizer Soln -) 1 amp NEB RQID [facility] Last Admin: 12/31/17 19:58 Dose: 1 amp Clonidine (Catapres -) 0.3 mg PO TID [facility] Last Admin: 12/31/17 21:01 Dose: 0.3 mg Collagenase (Santyl -) 1 applic TP DAILY [facility]; Protocol Last Admin: 12/31/17 10:27 Dose: 1 applic Gabapentin (Neurontin -) 300 mg PO BID [facility] Last Admin: 12/31/17 21:01 Dose: 300 mg Guaifenesin (Robitussin -) 10 ml PO Q8H PRN PRN Reason: COUGH Heparin Sodium (Porcine) (Heparin -) 5,000 unit SQ BID [facility] Last Admin: 12/31/17 21:02 Dose: 5,000 unit Piperacillin Sod/Tazobactam (Sod 2.25 gm/ Dextrose) 50 mls @ 100 mls/hr IVPB Q8H-IV [facility]; Protocol Last Admin: 12/31/17 18:24 Dose: 100 mls/hr Insulin Aspart (Novolog Vial Sliding Scale -) 1 vial SQ ACHS [facility]; Protocol Last Admin: 12/31/17 22:19 Dose: 4 units Insulin Detemir (Levemir Vial) 13 units SQ BID@0700,2200 [facility] Last Admin: 12/31/17 22:20 Dose: 13 units Labetalol HCl (Normodyne -) 400 mg PO BID [facility] Last Admin: 12/31/17 21:01 Dose: 400 mg Losartan Potassium (Cozaar -) 100 mg PO DAILY [facility] Last Admin: 12/31/17 10:26 Dose: 100 mg Oxycodone HCl (Roxicodone -) 10 mg PO Q8H PRN PRN Reason: PAIN LEVEL 7 - 10 Last Admin: 12/31/17 22:07 Dose: 10 mg - Objective Vital Signs: Vital Signs Temperature 98.9 F 12/31/17 02:00 Pulse Rate 84 12/31/17 22:00 Respiratory Rate 20 12/31/17 18:25 Blood Pressure 150/86 12/31/17 22:00 O2 Sat by Pulse Oximetry (%) 96 12/31/17 21:00 Constitutional: Yes: Calm Eyes: Yes: EOM Intact HENT: Yes: Normocephalic Neck: Yes: Trachea Midline Cardiovascular: Yes: Pulse Irregular Respiratory: Yes: On Nasal O2, Rales Gastrointestinal: Yes: Normal Bowel Sounds ...Rectal Exam: Yes: Deferred Musculoskeletal: Yes: Back Pain, Muscle Weakness Edema: Yes Edema: LLE: 1+, RLE: 1+ Integumentary: Yes: Onychomycosis, Venous Stasis Changes Wound/Incision: Yes: Dressing Dry and Intact Neurological: Yes: Alert, Oriented Labs: CBC, BMP 12/31/17 05:30 12/31/17 05:30 Problem List - Problems (1) DKA, type 1 Code(s): E10.10 - TYPE 1 DIABETES MELLITUS WITH KETOACIDOSIS WITHOUT COMA Qualifiers: Diabetes mellitus complication detail: without coma Qualified Code(s): E10.10 - Type 1 diabetes mellitus with ketoacidosis without coma Assessment/Plan Current Active Problems DKA, type 1 (Acute) Diastolic dysfunction with heart failure (Acute) Fracture of ribs, multiple, closed (Acute) Pneumonia (Acute) Ulcer of right leg (Acute) ESRD (end stage renal disease) on dialysis (Chronic) Abnormal Lab Results 12/31/17 12/31/17 05:30 05:30 RBC 2.91 L Hgb 7.5 L Hct 24.0 L MCHC 31.4 L RDW 17.3 H Monocytes % (Manual) 17 H D Eosinophils % (Manual) 4.9 H D BUN 25 H Creatinine 4.2 H Random Glucose 124 H Calcium 8.1 L Phosphorus 5.6 H Laboratory Results - last 24 hr 12/30/17 12/31/17 12/31/17 21:53 05:30 05:30 WBC 6.3 RBC 2.91 L Hgb 7.5 L Hct 24.0 L MCV 82.2 MCH 25.8 MCHC 31.4 L RDW 17.3 H Plt Count 233 MPV 9.2 Absolute Neuts (auto) 3.8 Neutrophils % No Result Required. Neutrophils % (Manual) 54.9 Band Neutrophils % 6.8 Lymphocytes % No Result Required. Lymphocytes % (Manual) 16.7 D Monocytes % (Manual) 17 H D Eosinophils % (Manual) 4.9 H D Basophils % (Manual) 0.0 Myelocytes % (Man) 0 Promyelocytes % (Man) 0 Blast Cells % (Manual) 0 Nucleated RBC % 0 Metamyelocytes 0 Hypochromia 1+ Platelet Estimate Normal Polychromasia 1+ Poikilocytosis 0 Anisocytosis 1+ Microcytosis 1+ Macrocytosis 0 Sodium 139 Potassium 3.5 Chloride 100 Carbon Dioxide 30 Anion Gap 9 BUN 25 H Creatinine 4.2 H Creat Clearance w eGFR 12.60 POC Glucometer [phone] Random Glucose 124 H Calcium 8.1 L Phosphorus 5.6 H Magnesium 2.1 12/31/17 12/31/17 12/31/17 05:48 11:57 17:22 WBC RBC Hgb Hct MCV MCH MCHC RDW Plt Count MPV Absolute Neuts (auto) Neutrophils % Neutrophils % (Manual) Band Neutrophils % Lymphocytes % Lymphocytes % (Manual) Monocytes % (Manual) Eosinophils % (Manual) Basophils % (Manual) Myelocytes % (Man) Promyelocytes % (Man) Blast Cells % (Manual) Nucleated RBC % Metamyelocytes Hypochromia Platelet Estimate Polychromasia Poikilocytosis Anisocytosis Microcytosis Macrocytosis Sodium Potassium Chloride Carbon Dioxide Anion Gap BUN Creatinine Creat Clearance w eGFR POC Glucometer 142.75249 176.07044 [phone] Random Glucose Calcium Phosphorus Magnesium 12/31/17 22:16 WBC RBC Hgb Hct MCV MCH MCHC RDW Plt Count MPV Absolute Neuts (auto) Neutrophils % Neutrophils % (Manual) Band Neutrophils % Lymphocytes % Lymphocytes % (Manual) Monocytes % (Manual) Eosinophils % (Manual) Basophils % (Manual) Myelocytes % (Man) Promyelocytes % (Man) Blast Cells % (Manual) Nucleated RBC % Metamyelocytes Hypochromia Platelet Estimate Polychromasia Poikilocytosis Anisocytosis Microcytosis Macrocytosis Sodium Potassium Chloride Carbon Dioxide Anion Gap BUN Creatinine Creat Clearance w eGFR POC Glucometer [phone] Random Glucose Calcium Phosphorus Magnesium plan: levemir dose titration Current Medications Generic Name Dose Route Start Last Admin Trade Name Freq PRN Reason Stop Dose Admin Albuterol Sulfate 1 amp 12/28/17 12:15 12/31/17 19:58 Ventolin 0.083% Nebulizer Soln - NEB 1 amp RQID [facility] Administration Clonidine 0.3 mg 09/25/18 14:00 12/31/17 21:01 Catapres - PO 0.3 mg TID [facility] Administration Collagenase 1 applic 12/29/17 15:45 12/31/17 10:27 Santyl - TP 1 applic DAILY [facility] Administration Protocol Gabapentin 300 mg 12/28/17 22:00 12/31/17 21:01 Neurontin - PO 300 mg BID [facility] Administration Guaifenesin 10 ml 12/30/17 08:01 Robitussin - PO Q8H PRN COUGH Heparin Sodium (Porcine) 5,000 unit 12/27/17 22:00 12/31/17 21:02 Heparin - SQ 5,000 unit BID [facility] Administration Piperacillin Sod/Tazobactam 50 mls @ 100 mls/hr 12/27/17 18:00 12/31/17 18:24 Sod 2.25 gm/ Dextrose IVPB 100 mls/hr Q8H-IV [facility] Administration Protocol Insulin Aspart 1 vial 12/29/17 23:48 12/31/17 22:19 Novolog Vial Sliding Scale - SQ 4 units ACHS [facility] Administration Protocol Insulin Detemir 13 units 12/31/17 14:14 12/31/17 22:20 Levemir Vial SQ 13 units BID@0700,2200 [facility] Administration Labetalol HCl 400 mg 12/29/17 14:12 12/31/17 21:01 Normodyne - PO 400 mg BID [facility] Administration Losartan Potassium 100 mg 12/29/17 14:13 12/31/17 10:26 Cozaar - PO 100 mg DAILY [facility] Administration Oxycodone HCl 10 mg 12/31/17 21:57 12/31/17 22:07 Roxicodone - PO 10 mg Q8H PRN Administration PAIN LEVEL 7 - 10
[2018-01-01] MEDS ORDERED: oxyCODONE HCL 5 MG TABLET PO ONE (02:54)
[2018-01-01] MEDS ORDERED: PIPERACILLIN/TAZOBACTAM 2.25 GM VIAL IVPB ONE ×3 (02:59→17:34)
[2018-01-01] MEDS: PIPERACILLIN/TAZOB 2.25 GM 2.25 GM in DEXTROSE 5%-WATER - 50 ML IVPB SCH ×3 (03:00→19:07)
[2018-01-01] MEDS ORDERED: DEXTROSE 5%-WATER - 50 ML IVPB ONE ×3 (03:01→17:34)
[2018-01-01] MEDS: INSULIN SLIDING SCALE (NOVOLOG) 1 VIAL SQ SCH ×4 (06:03→22:01)
[2018-01-01] MEDS: INSULIN (LEVEMIR) 100 UNITS/ML UNITS SQ SCH ×2 (06:05→22:00)
[2018-01-01] MEDS: ALBUTEROL SO4 0.083% IH SOL 2.5 MG/3 ML VIAL.NEB. NEB SCH ×4 (08:35→20:37)
[2018-01-01] MEDS: GABAPENTIN 300 MG CAPSULE (FP) PO SCH ×2 (09:28→21:59)
[2018-01-01] MEDS: HEPARIN NA (PORCINE) 5,000 UNITS/ML 1ML VIAL SQ SCH ×2 (09:28→22:00)
[2018-01-01] MEDS: oxyCODONE HCL 5 MG TABLET PO PRN ×2 (09:29→21:59)
[2018-01-01] MEDS: COLLAGENASE CLOSTRIDIUM HIST. 30 GRAMS TUBE TP SCH (09:34)
[2018-01-01] MEDS ORDERED: guaiFENesin 200 MG/10 ML 10 ML UNIT-DOSE CUPS PO PRN (10:15)
--- NOTE | 2018-01-01 10:29 | PN ---
Teaching Attending Note Name of Resident: Rika Palmer ATTENDING PHYSICIAN STATEMENT I saw and evaluated the patient. I reviewed the resident's note and discussed the case with the resident. I agree with the resident's findings and plan as documented. SUBJECTIVE: Pt seen and examined in the ICU. Breathing much improved. No fevers or chills. + nonproductive cough. For HD today. OBJECTIVE: Vital Signs Period Temp Pulse Resp BP Sys/Ames Pulse Ox Last 24 Hr 98.4 F-98.8 F 84-98 15-20 122-179/69-107 96-99 Intake & Output 12/29/17 12/30/17 12/31/17 01/01/18 23:59 23:59 23:59 23:59 Intake Total 1200 1050 1550 Output Total 0 0 0 0 Balance 1200 1050 1550 0 Weight 68.492 kg 67.302 kg 65.998 kg 66.678 kg Gen: NAD at rest Heart: RRR Lung: bibasilar rales Abd: soft, nontender Ext: + edema CBC, BMP 12/31/17 05:30 12/31/17 05:30 Active Medications Albuterol Sulfate (Ventolin 0.083% Nebulizer Soln -) 1 amp NEB RQID [facility] Clonidine (Catapres -) 0.3 mg PO TID [facility] Collagenase (Santyl -) 1 applic TP DAILY [facility]; Protocol Epoetin Abiel (Procrit -) 20,000 unit IVPUSH ONCE ONE Stop: 01/01/18 08:20 Gabapentin (Neurontin -) 300 mg PO BID [facility] Guaifenesin (Robitussin -) 10 ml PO Q8H PRN PRN Reason: COUGH Heparin Sodium (Porcine) (Heparin -) 5,000 unit SQ BID [facility] Sodium Chloride (Normal Saline -) 250 mls @ 3,000 mls/hr IV PRN PRN PRN Reason: Hypotension during Dialysis Stop: 01/02/18 08:19 Piperacillin Sod/Tazobactam (Sod 2.25 gm/ Dextrose) 50 mls @ 100 mls/hr IVPB Q8H-IV [facility]; Protocol Insulin Aspart (Novolog Vial Sliding Scale -) 1 vial SQ ACHS [facility]; Protocol Insulin Detemir (Levemir Vial) 13 units SQ BID@0700,2200 [facility] Last Admin: 01/01/18 06:05 Dose: 13 units Labetalol HCl (Normodyne -) 400 mg PO BID [facility] Losartan Potassium (Cozaar -) 100 mg PO DAILY [facility] Oxycodone HCl (Roxicodone -) 10 mg PO Q8H PRN PRN Reason: PAIN LEVEL 7 - 10 Last Admin: 01/01/18 09:29 Dose: 10 mg ASSESSMENT AND PLAN: Acute Hypoxic Respiratory Failure improving Pneumonia Sepsis Diabetic Ketoacidosis improving ESRD on HD h/o LA Thrombus HTN Anemia - continue antibiotics - O2 to keep SpO2 >90% - glucose control - inhaled bronchodilators - HD per renal - transfuse with HD - PO as tolerated - DVT prophylaxis - can monitor on floor
--- NOTE | 2018-01-01 10:47 | PN ---
Progress Note (short form) - Note Progress Note: Renal follow up for ESRD on HD Pt seen and examined at the bedside no acute complaints no sob, cp, abd pain legs more swollen Vital Signs Temperature 98.8 F 01/01/18 04:00 Pulse Rate 88 01/01/18 05:59 Respiratory Rate 15 01/01/18 04:00 Blood Pressure 122/78 01/01/18 09:36 O2 Sat by Pulse Oximetry (%) 99 01/01/18 09:48 Intake & Output 12/29/17 12/30/17 12/31/17 01/01/18 23:59 23:59 23:59 23:59 Intake Total 1200 1050 1550 Output Total 0 0 0 0 Balance 1200 1050 1550 0 Weight 68.492 kg 67.302 kg 65.998 kg 66.678 kg Mild SOB, on venti mask Neck supple MMM tachycardic, no M/R Dec BS b/l lung bases soft NT/ND Abd + jose ain LE CBC, BMP 12/31/17 05:30 12/31/17 05:30 Current Medications Albuterol Sulfate (Ventolin 0.083% Nebulizer Soln -) 1 amp NEB RQID [facility] Clonidine (Catapres -) 0.3 mg PO TID [facility] Collagenase (Santyl -) 1 applic TP DAILY [facility]; Protocol Epoetin Abiel (Procrit -) 20,000 unit IVPUSH ONCE ONE Stop: 01/01/18 08:20 Gabapentin (Neurontin -) 300 mg PO BID [facility] Guaifenesin (Robitussin -) 10 ml PO Q8H PRN PRN Reason: COUGH Heparin Sodium (Porcine) (Heparin -) 5,000 unit SQ BID [facility] Sodium Chloride (Normal Saline -) 250 mls @ 3,000 mls/hr IV PRN PRN PRN Reason: Hypotension during Dialysis Stop: 01/02/18 08:19 Piperacillin Sod/Tazobactam (Sod 2.25 gm/ Dextrose) 50 mls @ 100 mls/hr IVPB Q8H-IV [facility]; Protocol Insulin Aspart (Novolog Vial Sliding Scale -) 1 vial SQ ACHS [facility]; Protocol Insulin Detemir (Levemir Vial) 13 units SQ BID@0700,2200 [facility] Last Admin: 01/01/18 06:05 Dose: 13 units Labetalol HCl (Normodyne -) 400 mg PO BID [facility] Losartan Potassium (Cozaar -) 100 mg PO DAILY [facility] Oxycodone HCl (Roxicodone -) 10 mg PO Q8H PRN PRN Reason: PAIN LEVEL 7 - 10 Last Admin: 01/01/18 09:29 Dose: 10 mg 27 year old woman with hx of ESRD on Hd (MWF), DM type 2, Hypertension, Hx fo PE , LE wounds, Chronic volume overload, Diastolic HF presented from home with complaints of SOB and admitted for Sepsis/PNA. #Sepsis secondary to RLL PNA #ESRD on Hd with Hyperkalemia #Metabolic acidosis from renal failure +/- DKA #DM type 1 with uncontrolled blood glucose #Anemia #Hypertension Hd today with 2 units PRBC transfuison will also give MACIE with Hd Renal diet Abx as per ID Continue present antihypertensive meds Nathan Vo DO
--- NOTE | 2018-01-01 11:45 | PN ---
Progress Note, Physician Chief Complaint: Events noted Not in distress History of Present Illness: Patient was seen and examined. Awake and alert. Chart was reviewed - Current Medication List Current Medications: Active Medications Albumin Human (Albumin Human 25%) 12.5 gm IVPB Q30M [facility] Stop: 01/01/18 13:31 Albuterol Sulfate (Ventolin 0.083% Nebulizer Soln -) 1 amp NEB RQID [facility] Clonidine (Catapres -) 0.3 mg PO TID [facility] Collagenase (Santyl -) 1 applic TP DAILY [facility]; Protocol Epoetin Abiel (Procrit -) 20,000 unit IVPUSH ONCE ONE Stop: 01/01/18 08:20 Gabapentin (Neurontin -) 300 mg PO BID [facility] Guaifenesin (Robitussin -) 10 ml PO Q8H PRN PRN Reason: COUGH Heparin Sodium (Porcine) (Heparin -) 5,000 unit SQ BID [facility] Sodium Chloride (Normal Saline -) 250 mls @ 3,000 mls/hr IV PRN PRN PRN Reason: Hypotension during Dialysis Stop: 01/02/18 08:19 Piperacillin Sod/Tazobactam (Sod 2.25 gm/ Dextrose) 50 mls @ 100 mls/hr IVPB Q8H-IV [facility]; Protocol Insulin Aspart (Novolog Vial Sliding Scale -) 1 vial SQ ACHS [facility]; Protocol Insulin Detemir (Levemir Vial) 13 units SQ BID@0700,2200 [facility] Last Admin: 01/01/18 06:05 Dose: 13 units Labetalol HCl (Normodyne -) 400 mg PO BID [facility] Losartan Potassium (Cozaar -) 100 mg PO DAILY [facility] Oxycodone HCl (Roxicodone -) 10 mg PO Q8H PRN PRN Reason: PAIN LEVEL 7 - 10 Last Admin: 01/01/18 09:29 Dose: 10 mg - Objective Vital Signs: Vital Signs Temperature 98.8 F 01/01/18 04:00 Pulse Rate 88 01/01/18 05:59 Respiratory Rate 15 01/01/18 04:00 Blood Pressure 122/78 01/01/18 09:36 O2 Sat by Pulse Oximetry (%) 99 01/01/18 09:48 HENT: Yes: Atraumatic Neck: Yes: Supple Cardiovascular: Yes: Regular Rate and Rhythm, S1, S2 Respiratory: Yes: CTA Bilaterally Gastrointestinal: Yes: Normal Bowel Sounds, Soft. No: Tenderness Edema: Yes Labs: CBC, BMP 12/31/17 05:30 12/31/17 05:30 Problem List - Problems (1) Diastolic dysfunction with heart failure Code(s): I50.30 - UNSPECIFIED DIASTOLIC (CONGESTIVE) HEART FAILURE Qualifiers: Heart failure chronicity: acute on chronic Qualified Code(s): I50.33 - Acute on chronic diastolic (congestive) heart failure (2) Pneumonia Code(s): J18.9 - PNEUMONIA, UNSPECIFIED ORGANISM Qualifiers: Pneumonia type: due to unspecified organism Laterality: bilateral Lung location: lower lobe of lung Qualified Code(s): J18.1 - Lobar pneumonia, unspecified organism (3) ESRD (end stage renal disease) on dialysis Code(s): N18.6 - END STAGE RENAL DISEASE; Z99.2 - DEPENDENCE ON RENAL DIALYSIS (4) Anemia Code(s): D64.9 - ANEMIA, UNSPECIFIED Qualifiers: Anemia type: due to chronic kidney disease Chronic kidney disease stage: on chronic dialysis Qualified Code(s): N18.6 - End stage renal disease; D63.1 - Anemia in chronic kidney disease; Z99.2 - Dependence on renal dialysis (6) DKA (diabetic ketoacidoses) Code(s): E13.10 - OTH DIABETES MELLITUS WITH KETOACIDOSIS WITHOUT COMA Qualifiers: Diabetes mellitus type: type 1 Diabetes mellitus complication detail: with coma Qualified Code(s): E10.11 - Type 1 diabetes mellitus with ketoacidosis with coma (7) Diabetes mellitus type 1 with peripheral artery disease Code(s): E10.51 - TYPE 1 DIABETES W DIABETIC PERIPHERAL ANGIOPATH W/O GANGRENE (8) Chronic GERD Code(s): K21.9 - GASTRO-ESOPHAGEAL REFLUX DISEASE WITHOUT ESOPHAGITIS (9) HTN (hypertension) Code(s): I10 - ESSENTIAL (PRIMARY) HYPERTENSION Qualifiers: Hypertension type: unspecified Qualified Code(s): I10 - Essential (primary ) hypertension Assessment/Plan 1. Acute Hypoxic Respiratory Failure - Pneumonia and sepsis 2. Diastolic LV dysfunction with class I NYHA classification LV failure, volume overload 3. History of LA myxoma post resection 4. History of LA thrombus 5. HTN 6. IDDM 7. ESRD on HD 8. PVD Right Foot ulcer 9. Anemia 10. CKD PLAN: 1. Complete antibiotic course 2. HD/UF as per renal service 3. Continue Catapres, Labetolol, Losartan and Procardia XL 4. DVT prophylaxis Marck Torres MD
[2018-01-01] MEDS ORDERED: SODIUM CHLORIDE 250 ML IV PRN (12:03)
[2018-01-01] MEDS ORDERED: EPOETIN ALFA 20,000 UNIT/1 ML VIAL IVPUSH ONE (12:15)
[2018-01-01 12:41] LABS: HEMATOCRIT 24.4 % (32.4-45.2); HEMOGLOBIN 7.7 GM/dL (10.7-15.3); MCHC 31.4 g/dl (32.0-36.0); MEAN CELL VOLUME 82.9 fl (80-96); MEAN PLT VOLUME 9.3 fl (7.5-11.1); PLATELET COUNT 269 K/MM3 (134-434); RBC 2.94 M/mm3 (3.60-5.2); RDW 17.8 % (11.6-15.6); WHITE BLOOD COUNT 8.4 K/mm3 (4.0-10.0)
[2018-01-01 13:13] LABS: ANION GAP 14 MMOL/L (8-16); BLOOD UREA NITROGEN 43 mg/dL (7-18); CALCIUM 8.3 mg/dL (8.5-10.1); CHLORIDE 99 mmol/L (98-107); CO2 26 mmol/L (21-32); CREATININE 5.8 mg/dL (0.55-1.3); GLUCOSE,RANDOM 135 mg/dL (74-106); POTASSIUM 3.9 mmol/L (3.5-5.1); SODIUM 139 mmol/L (136-145)
--- NOTE | 2018-01-01 14:07 | PN ---
Progress Note, Physician History of Present Illness: feeling good - Current Medication List Current Medications: Active Medications Albuterol Sulfate (Ventolin 0.083% Nebulizer Soln -) 1 amp NEB RQID [facility] Last Admin: 01/01/18 11:59 Dose: 1 amp Clonidine (Catapres -) 0.3 mg PO TID [facility] Collagenase (Santyl -) 1 applic TP DAILY [facility]; Protocol Gabapentin (Neurontin -) 300 mg PO BID [facility] Guaifenesin (Robitussin -) 10 ml PO Q8H PRN PRN Reason: COUGH Heparin Sodium (Porcine) (Heparin -) 5,000 unit SQ BID [facility] Sodium Chloride (Normal Saline -) 250 mls @ 3,000 mls/hr IV PRN PRN PRN Reason: Hypotension during Dialysis Stop: 01/02/18 12:02 Piperacillin Sod/Tazobactam (Sod 2.25 gm/ Dextrose) 50 mls @ 100 mls/hr IVPB Q8H-IV [facility]; Protocol Insulin Aspart (Novolog Vial Sliding Scale -) 1 vial SQ ACHS [facility]; Protocol Last Admin: 01/01/18 12:31 Dose: 3 units Insulin Detemir (Levemir Vial) 13 units SQ BID@0700,2200 [facility] Last Admin: 01/01/18 06:05 Dose: 13 units Labetalol HCl (Normodyne -) 400 mg PO BID [facility] Losartan Potassium (Cozaar -) 100 mg PO DAILY [facility] Oxycodone HCl (Roxicodone -) 10 mg PO Q8H PRN PRN Reason: PAIN LEVEL 7 - 10 Last Admin: 01/01/18 09:29 Dose: 10 mg - Objective Vital Signs: Vital Signs Temperature 98.4 F 01/01/18 11:25 Pulse Rate 82 01/01/18 13:30 Respiratory Rate 18 01/01/18 13:30 Blood Pressure 116/68 01/01/18 13:30 O2 Sat by Pulse Oximetry (%) 99 01/01/18 09:48 Constitutional: Yes: No Distress HENT: Yes: Atraumatic Neck: Yes: Supple Cardiovascular: Yes: Regular Rate and Rhythm Respiratory: Yes: Rhonchi Gastrointestinal: Yes: Normal Bowel Sounds Extremities: Yes: Other (rlex and both feet...wounds) Edema: Yes Edema: LLE: 2+, RLE: 2+ Peripheral Pulses WNL: Yes Neurological: Yes: Alert, Oriented Labs: CBC, BMP 01/01/18 11:30 01/01/18 11:30 Problem List - Problems (1) Fracture of ribs, multiple, closed Assessment/Plan: prn pain meds doing well Code(s): S22.49XA - MULTIPLE FRACTURES OF RIBS, UNSP SIDE, INIT FOR CLOS FX Qualifiers: Encounter type: subsequent encounter Laterality: right Fracture healing: with routine healing Qualified Code(s): S22.41XD - Multiple fractures of ribs , right side, subsequent encounter for fracture with routine healing (2) Pneumonia Assessment/Plan: on abx per id cxs sent recovering on NC Code(s): J18.9 - PNEUMONIA, UNSPECIFIED ORGANISM Qualifiers: Pneumonia type: due to unspecified organism Laterality: bilateral Lung location: lower lobe of lung Qualified Code(s): J18.1 - Lobar pneumonia, unspecified organism (3) ESRD (end stage renal disease) on dialysis Assessment/Plan: on hd renal on board Code(s): N18.6 - END STAGE RENAL DISEASE; Z99.2 - DEPENDENCE ON RENAL DIALYSIS (4) Diabetes mellitus, insulin dependent (IDDM), uncontrolled Assessment/Plan: on insulin bgms Code(s): E10.65 - TYPE 1 DIABETES MELLITUS WITH HYPERGLYCEMIA (5) Ulcer of right leg Code(s): L97.919 - NON-PRS CHRONIC ULC UNSP PRT OF R LOW LEG W UNSP SEVERITY Qualifiers: Non-pressure ulcer stage: with fat layer exposed Qualified Code(s): L97.912 - Non-pressure chronic ulcer of unspecified part of right lower leg with fat layer exposed (6) Anemia Code(s): D64.9 - ANEMIA, UNSPECIFIED Qualifiers: Anemia type: due to chronic kidney disease Chronic kidney disease stage: on chronic dialysis Qualified Code(s): N18.6 - End stage renal disease; D63.1 - Anemia in chronic kidney disease; Z99.2 - Dependence on renal dialysis
[2018-01-01] MEDS: ALBUMIN HUMAN 25% 12.5 GM/50 ML VIAL IVPB SCH ×4 (15:18→15:21)
--- NOTE | 2018-01-01 15:34 | PN ---
Physical Exam: SUBJECTIVE: Patient seen and examined at bedside. No acute events overnight. Today, pt without complaint. For dialysis. Denies GUTIERRES, fever, chills, SOB, or changes in urinary or bowel function. OBJECTIVE: Vital Signs Period Temp Pulse Resp BP Sys/Ames Pulse Ox Last 24 Hr 98.4 F-98.8 F 80-90 15-20 102-179/54-107 96-99 GENERAL: The patient is awake, alert, and fully oriented, in no acute distress. on 3L NC HEAD: Normal with no signs of trauma. EYES: PERRL, extraocular movements intact, sclera anicteric, conjunctiva clear. ENT: Ears normal, nares patent, oropharynx clear without exudates NECK: Trachea midline, supple. LUNGS: Breath sounds equal, clear to auscultation bilaterally, no wheezes, no crackles, no accessory muscle use. HEART: Regular rate and rhythm, S1, S2 without murmur, rub or gallop. ABDOMEN: Soft, nontender, nondistended, normoactive bowel sounds, no guarding EXTREMITIES: 2+ pt pulses, warm, well-perfused, no edema. NEUROLOGICAL: Cranial nerves II through XII grossly intact. PSYCH: Normal mood, normal affect. SKIN: Warm, dry, normal turgor Laboratory Results - last 24 hr 12/31/17 12/31/17 01/01/18 17:22 22:16 02:30 WBC Creat Clearance w eGFR POC Glucometer [phone] [phone] Random Glucose 01/01/18 01/01/18 01/01/18 11:30 11:30 11:30 WBC 8.4 RBC 2.94 L Hgb 7.7 L Hct 24.4 L MCV 82.9 MCH 26.0 MCHC 31.4 L RDW 17.8 H Plt Count 269 MPV 9.3 Sodium 139 Potassium 3.9 Chloride 99 Carbon Dioxide 26 Anion Gap 14 BUN 43 H Creatinine 5.8 H Creat Clearance w eGFR 8.68 POC Glucometer Random Glucose 135 H Calcium 8.3 L Blood Type B POSITIVE Antibody Screen Negative Crossmatch See Detail Active Medications Generic Name Dose Route Start Last Admin Trade Name Freq PRN Reason Stop Dose Admin Albuterol Sulfate 1 amp 01/01/18 12:00 01/01/18 11:59 Ventolin 0.083% Nebulizer Soln - NEB 1 amp RQID [facility] Administration Clonidine 0.3 mg 01/01/18 14:00 Catapres - PO TID [facility] Collagenase 1 applic 01/02/18 10:00 Santyl - TP DAILY [facility] Protocol Gabapentin 300 mg 01/01/18 22:00 Neurontin - PO BID [facility] Guaifenesin 10 ml 01/01/18 10:15 Robitussin - PO Q8H PRN COUGH Heparin Sodium (Porcine) 5,000 unit 01/01/18 22:00 Heparin - SQ BID [facility] Sodium Chloride 250 mls @ 3,000 mls/hr 01/01/18 12:03 Normal Saline - IV 01/02/18 12:02 PRN PRN Hypotension during Dialysis Piperacillin Sod/Tazobactam 50 mls @ 100 mls/hr 01/01/18 18:00 Sod 2.25 gm/ Dextrose IVPB Q8H-IV [facility] Protocol Insulin Aspart 1 vial 01/01/18 11:00 01/01/18 12:31 Novolog Vial Sliding Scale - SQ 3 units ACHS [facility] Administration Protocol Insulin Detemir 13 units 12/31/17 14:14 01/01/18 06:05 Levemir Vial SQ 13 units BID@0700,2200 [facility] Administration Labetalol HCl 400 mg 01/01/18 10:30 Normodyne - PO BID [facility] Losartan Potassium 100 mg 01/01/18 10:00 Cozaar - PO DAILY [facility] Oxycodone HCl 10 mg 12/31/17 21:57 01/01/18 09:29 Roxicodone - PO 10 mg Q8H PRN Administration PAIN LEVEL 7 - 10 ASSESSMENT/PLAN: Patient is a 27 year old female, well known to [facility], with significant past medical history of HD (M,W,F LUE AVF), IDDM, HTN, PVD, Atrial thrombus, Cardiac Arrest, Pneumonia, Right Foot ulcer, non compliance was brought in via EMS with the chief complaints of shortness of breath x 1 day. # Respiratory -Acute hypoxic respiratory failure likely secondary to sepsis from pneumonia Resolving- Pt. is on 3L NC at home. pt at baseline IV Zosyn 2.25 gm IV Q8H (Renally dosed) -Multiple right rib fractures s/p fall prior to admission Pain control w/ oxycodone 10mg Q6H PRN Incentive spirometry # Integumentary -Diabetic foot ulcer On IV Zosyn 2.25 gm IV Q8H C/w daily Santyl to wounds then iodoform packing, wound vac in future -Clavicular lesion CT chest 12/23/17 clavicular lesion ?brown tumor recommend bone biopsy when stable. # Cardiovascular -Hypertension Echo(12/28/17) appreciated: EF: 65%, Mild concentric LVH-Grade 1, mild TR, trace MR, LA and RA nml size and fxn., mild pulmonary HTN, C/w Clonidine C/w Labetalol and Losartan # Endocrinology -Hyperglycemia vs. DKA vs. HHS- resolved C/w Levemir 13 units BID ISS # Renal -ESRD For HD today, will receive 2U PRBCs # Hematology -Normocytic anemia 2/2 ESRD will receive 2 units pRBCs during HD today Transfuse if Hb is <7/Hct <25 # F/E/N no IVF encourage PO intake Monitor electrolytes and replete as needed pt non compliant. renal, diabetic diet # Prophylaxis -DVT: Heparin sq # Code Status: Full Code #Dispo: for transfer out of unit Visit type - Emergency Visit Emergency Visit: No - New Patient This patient is new to me today: No - Critical Care Critical Care patient: Yes Total Critical Care Time (in minutes): 43 Critical Care Statement: The care of this patient involved high complexity decision making to prevent further life threatening deterioration of the patient 's condition and/or to evaluate & treat vital organ system(s) failure or risk of failure.
[2018-01-01] MEDS: cloNIDine HCL 0.1 MG TABLET PO SCH ×2 (16:21→21:59)
[2018-01-01] MEDS: LOSARTAN POTASSIUM 50 MG TABLET (FP) PO SCH (16:21)
[2018-01-01] MEDS: LABETALOL HCL 200 MG TABLET (FP) PO SCH ×2 (17:23→21:59)
--- NOTE | 2018-01-01 17:43 | PN ---
Progress Note, Physician History of Present Illness: Pt is alert, afebrile. Denies cough or difficulty breathing. Has been having frequent loose stools but no abd pain. No specific complaints. - Current Medication List Current Medications: Active Medications Albuterol Sulfate (Ventolin 0.083% Nebulizer Soln -) 1 amp NEB RQID [facility] Last Admin: 01/01/18 16:25 Dose: 1 amp Clonidine (Catapres -) 0.3 mg PO TID [facility] Last Admin: 01/01/18 16:21 Dose: 0.3 mg Collagenase (Santyl -) 1 applic TP DAILY [facility]; Protocol Gabapentin (Neurontin -) 300 mg PO BID [facility] Guaifenesin (Robitussin -) 10 ml PO Q8H PRN PRN Reason: COUGH Heparin Sodium (Porcine) (Heparin -) 5,000 unit SQ BID [facility] Sodium Chloride (Normal Saline -) 250 mls @ 3,000 mls/hr IV PRN PRN PRN Reason: Hypotension during Dialysis Stop: 01/02/18 12:02 Piperacillin Sod/Tazobactam (Sod 2.25 gm/ Dextrose) 50 mls @ 100 mls/hr IVPB Q8H-IV [facility]; Protocol Insulin Aspart (Novolog Vial Sliding Scale -) 1 vial SQ ACHS [facility]; Protocol Last Admin: 01/01/18 17:30 Dose: 4 units Insulin Detemir (Levemir Vial) 13 units SQ BID@0700,2200 [facility] Last Admin: 01/01/18 06:05 Dose: 13 units Labetalol HCl (Normodyne -) 400 mg PO BID [facility] Last Admin: 01/01/18 17:23 Dose: Not Given Losartan Potassium (Cozaar -) 100 mg PO DAILY [facility] Last Admin: 01/01/18 16:21 Dose: 100 mg Oxycodone HCl (Roxicodone -) 10 mg PO Q8H PRN PRN Reason: PAIN LEVEL 7 - 10 Last Admin: 01/01/18 09:29 Dose: 10 mg - Objective Vital Signs: Vital Signs Temperature 98.4 F 01/01/18 11:25 Pulse Rate 92 H 01/01/18 17:10 Respiratory Rate 18 01/01/18 17:10 Blood Pressure 156/96 01/01/18 17:10 O2 Sat by Pulse Oximetry (%) 99 01/01/18 09:48 Constitutional: Yes: No Distress, Calm Cardiovascular: Yes: Regular Rate and Rhythm Respiratory: Yes: Other (decreased BS at bases) Gastrointestinal: Yes: Normal Bowel Sounds, Soft Edema: LLE: 2+, RLE: 2+ Wound/Incision: Yes: Dressing Dry and Intact (Rt leg , no warmth/tenderness) Neurological: Yes: Alert Labs: CBC, BMP 01/01/18 11:30 01/01/18 11:30 Microbiology 12/27/17 17:15 Blood - Peripheral Venous Blood Culture - Final NO GROWTH AFTER 5 DAYS INCUBATION 12/27/17 16:00 Blood - Peripheral Venous Blood Culture - Final NO GROWTH AFTER 5 DAYS INCUBATION 12/31/17 14:30 Stool Clostridium difficile Antigen (SHI) - Final 12/31/17 14:30 Stool Clostridium difficile Toxin Assay - Final Problem List - Problems (1) DKA, type 1 Code(s): E10.10 - TYPE 1 DIABETES MELLITUS WITH KETOACIDOSIS WITHOUT COMA Qualifiers: Diabetes mellitus complication detail: without coma Qualified Code(s): E10.10 - Type 1 diabetes mellitus with ketoacidosis without coma (2) Diastolic dysfunction with heart failure Code(s): I50.30 - UNSPECIFIED DIASTOLIC (CONGESTIVE) HEART FAILURE Qualifiers: Heart failure chronicity: acute on chronic Qualified Code(s): I50.33 - Acute on chronic diastolic (congestive) heart failure (3) Pneumonia Code(s): J18.9 - PNEUMONIA, UNSPECIFIED ORGANISM Qualifiers: Pneumonia type: due to unspecified organism Laterality: bilateral Lung location: lower lobe of lung Qualified Code(s): J18.1 - Lobar pneumonia, unspecified organism (4) Ulcer of right leg Code(s): L97.919 - NON-PRS CHRONIC ULC UNSP PRT OF R LOW LEG W UNSP SEVERITY Qualifiers: Non-pressure ulcer stage: with fat layer exposed Qualified Code(s): L97.912 - Non-pressure chronic ulcer of unspecified part of right lower leg with fat layer exposed (5) ESRD (end stage renal disease) on dialysis Code(s): N18.6 - END STAGE RENAL DISEASE; Z99.2 - DEPENDENCE ON RENAL DIALYSIS (7) Diabetes mellitus, insulin dependent (IDDM), uncontrolled Code(s): E10.65 - TYPE 1 DIABETES MELLITUS WITH HYPERGLYCEMIA Assessment/Plan Pneumonia Sepsis Acute Hypoxic Respiratory Failure DKA - improved ESRD on HD h/o LA Thrombus HTN H/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
[2018-01-01] MEDS ORDERED: NIFEdipine E.R. 30 MG TABLET (FP) PO ONE (19:43)
[2018-01-01] MEDS ORDERED: INSULIN (LEVEMIR) 100 UNITS/ML UNITS SQ ONE (21:28)
[2018-01-02] MEDS ORDERED: DEXTROSE 5%-WATER - 50 ML IVPB ONE ×3 (01:46→17:57)
[2018-01-02] MEDS ORDERED: PIPERACILLIN/TAZOBACTAM 2.25 GM VIAL IVPB ONE ×3 (01:46→17:57)
[2018-01-02] MEDS: PIPERACILLIN/TAZOB 2.25 GM 2.25 GM in DEXTROSE 5%-WATER - 50 ML IVPB SCH ×3 (02:46→18:01)
[2018-01-02] MEDS: cloNIDine HCL 0.1 MG TABLET PO SCH ×3 (06:55→22:41)
[2018-01-02] MEDS: INSULIN SLIDING SCALE (NOVOLOG) 1 VIAL SQ SCH ×4 (07:09→22:39)
[2018-01-02] MEDS: INSULIN (LEVEMIR) 100 UNITS/ML UNITS SQ SCH ×2 (07:10→22:38)
[2018-01-02] MEDS: ALBUTEROL SO4 0.083% IH SOL 2.5 MG/3 ML VIAL.NEB. NEB SCH ×4 (07:40→20:38)
[2018-01-02 08:16] LABS: BASO % 0.7 % (0-2.0); EOS % 5.5 % (0-4.5); HEMATOCRIT 31.8 % (32.4-45.2); LYMPH % 14.1 % (8-40); MCH 26.1 pg (25.7-33.7); MCHC 31.5 g/dl (32.0-36.0); MEAN CELL VOLUME 82.9 fl (80-96); MEAN PLT VOLUME 9.1 fl (7.5-11.1); MONO % 14.7 % (3.8-10.2); PLATELET COUNT 292 K/MM3 (134-434); RBC 3.84 M/mm3 (3.60-5.2); WHITE BLOOD COUNT 8.5 K/mm3 (4.0-10.0)
[2018-01-02 09:33] LABS: ANION GAP 14 MMOL/L (8-16); BLOOD UREA NITROGEN 24 mg/dL (7-18); CALCIUM 8.6 mg/dL (8.5-10.1); CHLORIDE 100 mmol/L (98-107); CO2 26 mmol/L (21-32); GLUCOSE,RANDOM 82 mg/dL (74-106); PHOSPHOROUS 4.6 mg/dL (2.5-4.9); SODIUM 139 mmol/L (136-145)
[2018-01-02] MEDS: GABAPENTIN 300 MG CAPSULE (FP) PO SCH ×2 (11:03→22:40)
[2018-01-02] MEDS: LOSARTAN POTASSIUM 50 MG TABLET (FP) PO SCH (11:03)
[2018-01-02] MEDS: LABETALOL HCL 200 MG TABLET (FP) PO SCH ×2 (11:03→22:41)
[2018-01-02] MEDS: HEPARIN NA (PORCINE) 5,000 UNITS/ML 1ML VIAL SQ SCH ×2 (11:04→22:46)
[2018-01-02] MEDS: COLLAGENASE CLOSTRIDIUM HIST. 30 GRAMS TUBE TP SCH (11:05)
[2018-01-02] MEDS: oxyCODONE HCL 5 MG TABLET PO PRN ×2 (11:18→22:40)
--- NOTE | 2018-01-02 13:12 | PN ---
Progress Note (short form) - Note Progress Note: PULMONARY Denies shortness of breath, cough. No fevers or chills. Vital Signs Period Temp Pulse Resp BP Sys/Ames Pulse Ox Last 24 Hr 97.6 F-98.2 F 80-96 18-20 116-173/68-101 99 Gen: NAD at rest Heart: RRR Lung: right base rales Abd: soft, nontender Ext: no edema CBC, BMP 01/02/18 06:00 01/02/18 06:00 Active Medications Albuterol Sulfate (Ventolin 0.083% Nebulizer Soln -) 1 amp NEB RQID [facility] Last Admin: 01/02/18 11:40 Dose: 1 amp Clonidine (Catapres -) 0.3 mg PO TID [facility] Last Admin: 01/02/18 06:55 Dose: 0.3 mg Collagenase (Santyl -) 1 applic TP DAILY [facility]; Protocol Last Admin: 01/02/18 11:05 Dose: 1 applic Gabapentin (Neurontin -) 300 mg PO BID [facility] Last Admin: 01/02/18 11:03 Dose: 300 mg Guaifenesin (Robitussin -) 10 ml PO Q8H PRN PRN Reason: COUGH Heparin Sodium (Porcine) (Heparin -) 5,000 unit SQ BID [facility] Last Admin: 01/02/18 11:04 Dose: Not Given Piperacillin Sod/Tazobactam (Sod 2.25 gm/ Dextrose) 50 mls @ 100 mls/hr IVPB Q8H-IV [facility]; Protocol Last Admin: 01/02/18 11:04 Dose: 100 mls/hr Insulin Aspart (Novolog Vial Sliding Scale -) 1 vial SQ ACHS [facility]; Protocol Last Admin: 01/02/18 11:55 Dose: Not Given Insulin Detemir (Levemir Vial) 13 units SQ BID@0700,2200 [facility] Last Admin: 01/02/18 07:10 Dose: 13 units Labetalol HCl (Normodyne -) 400 mg PO BID [facility] Last Admin: 01/02/18 11:03 Dose: 400 mg Losartan Potassium (Cozaar -) 100 mg PO DAILY [facility] Last Admin: 01/02/18 11:03 Dose: 100 mg Oxycodone HCl (Roxicodone -) 10 mg PO Q8H PRN PRN Reason: PAIN LEVEL 7 - 10 Last Admin: 01/02/18 11:18 Dose: 10 mg A/P Acute Hypoxic Respiratory Failure improving Pneumonia Sepsis Diabetic Ketoacidosis improving ESRD on HD h/o LA Thrombus HTN Anemia - continue antibiotics - O2 to keep SpO2 >90% - glucose control - inhaled bronchodilators - HD per renal - PO as tolerated - DVT prophylaxis
--- NOTE | 2018-01-02 14:33 | PN ---
Progress Note, Physician History of Present Illness: Pt without new complaints. States she is breathing comfortably on O2 NC. Remains afebrile. No diarrhea today. - Current Medication List Current Medications: Active Medications Albuterol Sulfate (Ventolin 0.083% Nebulizer Soln -) 1 amp NEB RQID [facility] Last Admin: 01/02/18 11:40 Dose: 1 amp Clonidine (Catapres -) 0.3 mg PO TID [facility] Last Admin: 01/02/18 14:17 Dose: 0.3 mg Collagenase (Santyl -) 1 applic TP DAILY [facility]; Protocol Last Admin: 01/02/18 11:05 Dose: 1 applic Gabapentin (Neurontin -) 300 mg PO BID [facility] Last Admin: 01/02/18 11:03 Dose: 300 mg Guaifenesin (Robitussin -) 10 ml PO Q8H PRN PRN Reason: COUGH Heparin Sodium (Porcine) (Heparin -) 5,000 unit SQ BID [facility] Last Admin: 01/02/18 11:04 Dose: Not Given Piperacillin Sod/Tazobactam (Sod 2.25 gm/ Dextrose) 50 mls @ 100 mls/hr IVPB Q8H-IV [facility]; Protocol Last Admin: 01/02/18 11:04 Dose: 100 mls/hr Insulin Aspart (Novolog Vial Sliding Scale -) 1 vial SQ ACHS [facility]; Protocol Last Admin: 01/02/18 11:55 Dose: Not Given Insulin Detemir (Levemir Vial) 13 units SQ BID@0700,2200 [facility] Last Admin: 01/02/18 07:10 Dose: 13 units Labetalol HCl (Normodyne -) 400 mg PO BID [facility] Last Admin: 01/02/18 11:03 Dose: 400 mg Losartan Potassium (Cozaar -) 100 mg PO DAILY [facility] Last Admin: 01/02/18 11:03 Dose: 100 mg Oxycodone HCl (Roxicodone -) 10 mg PO Q8H PRN PRN Reason: PAIN LEVEL 7 - 10 Last Admin: 01/02/18 11:18 Dose: 10 mg - Objective Vital Signs: Vital Signs Temperature 97.6 F 01/02/18 07:00 Pulse Rate 85 01/02/18 07:00 Respiratory Rate 20 01/02/18 07:00 Blood Pressure 151/83 01/02/18 07:00 O2 Sat by Pulse Oximetry (%) 99 01/01/18 21:00 Constitutional: Yes: No Distress, Calm Cardiovascular: Yes: Regular Rate and Rhythm Respiratory: Yes: Other (slightly diminished BS bases) Gastrointestinal: Yes: Normal Bowel Sounds, Soft Edema: LLE: 2+, RLE: 2+ Wound/Incision: Yes: Dressing Dry and Intact Neurological: Yes: Alert Labs: CBC, BMP 01/02/18 06:00 01/02/18 06:00 Microbiology 12/27/17 17:15 Blood - Peripheral Venous Blood Culture - Final NO GROWTH AFTER 5 DAYS INCUBATION 12/27/17 16:00 Blood - Peripheral Venous Blood Culture - Final NO GROWTH AFTER 5 DAYS INCUBATION 12/31/17 14:30 Stool Clostridium difficile Antigen (SHI) - Final 12/31/17 14:30 Stool Clostridium difficile Toxin Assay - Final Problem List - Problems (1) DKA, type 1 Code(s): E10.10 - TYPE 1 DIABETES MELLITUS WITH KETOACIDOSIS WITHOUT COMA Qualifiers: Diabetes mellitus complication detail: without coma Qualified Code(s): E10.10 - Type 1 diabetes mellitus with ketoacidosis without coma (2) Diastolic dysfunction with heart failure Code(s): I50.30 - UNSPECIFIED DIASTOLIC (CONGESTIVE) HEART FAILURE Qualifiers: Heart failure chronicity: acute on chronic Qualified Code(s): I50.33 - Acute on chronic diastolic (congestive) heart failure (3) Pneumonia Code(s): J18.9 - PNEUMONIA, UNSPECIFIED ORGANISM Qualifiers: Pneumonia type: due to unspecified organism Laterality: bilateral Lung location: lower lobe of lung Qualified Code(s): J18.1 - Lobar pneumonia, unspecified organism (4) Ulcer of right leg Code(s): L97.919 - NON-PRS CHRONIC ULC UNSP PRT OF R LOW LEG W UNSP SEVERITY Qualifiers: Non-pressure ulcer stage: with fat layer exposed Qualified Code(s): L97.912 - Non-pressure chronic ulcer of unspecified part of right lower leg with fat layer exposed (5) ESRD (end stage renal disease) on dialysis Code(s): N18.6 - END STAGE RENAL DISEASE; Z99.2 - DEPENDENCE ON RENAL DIALYSIS (7) Diabetes mellitus, insulin dependent (IDDM), uncontrolled Code(s): E10.65 - TYPE 1 DIABETES MELLITUS WITH HYPERGLYCEMIA Assessment/Plan Pneumonia Sepsis Acute Hypoxic Respiratory Failure DKA - improved ESRD on HD h/o LA Thrombus HTN 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
--- NOTE | 2018-01-02 20:43 | PN ---
Progress Note, Physician History of Present Illness: feeling good - Current Medication List Current Medications: Active Medications Albuterol Sulfate (Ventolin 0.083% Nebulizer Soln -) 1 amp NEB RQID [facility] Last Admin: 01/02/18 16:18 Dose: 1 amp Clonidine (Catapres -) 0.3 mg PO TID [facility] Last Admin: 01/02/18 14:17 Dose: 0.3 mg Collagenase (Santyl -) 1 applic TP DAILY [facility]; Protocol Last Admin: 01/02/18 11:05 Dose: 1 applic Gabapentin (Neurontin -) 300 mg PO BID [facility] Last Admin: 01/02/18 11:03 Dose: 300 mg Guaifenesin (Robitussin -) 10 ml PO Q8H PRN PRN Reason: COUGH Heparin Sodium (Porcine) (Heparin -) 5,000 unit SQ BID [facility] Last Admin: 01/02/18 11:04 Dose: Not Given Piperacillin Sod/Tazobactam (Sod 2.25 gm/ Dextrose) 50 mls @ 100 mls/hr IVPB Q8H-IV [facility]; Protocol Last Admin: 01/02/18 18:01 Dose: 100 mls/hr Insulin Aspart (Novolog Vial Sliding Scale -) 1 vial SQ ACHS [facility]; Protocol Last Admin: 01/02/18 18:08 Dose: 5 units Insulin Detemir (Levemir Vial) 13 units SQ BID@0700,2200 [facility] Last Admin: 01/02/18 07:10 Dose: 13 units Labetalol HCl (Normodyne -) 400 mg PO BID [facility] Last Admin: 01/02/18 11:03 Dose: 400 mg Losartan Potassium (Cozaar -) 100 mg PO DAILY [facility] Last Admin: 01/02/18 11:03 Dose: 100 mg Oxycodone HCl (Roxicodone -) 10 mg PO Q8H PRN PRN Reason: PAIN LEVEL 7 - 10 Last Admin: 01/02/18 11:18 Dose: 10 mg - Objective Vital Signs: Vital Signs Temperature 98.4 F 01/02/18 18:03 Pulse Rate 90 01/02/18 18:03 Respiratory Rate 20 01/02/18 18:03 Blood Pressure 167/109 H 01/02/18 19:59 O2 Sat by Pulse Oximetry (%) 99 01/02/18 11:00 Constitutional: Yes: No Distress HENT: Yes: Atraumatic Neck: Yes: Supple Cardiovascular: Yes: Regular Rate and Rhythm Respiratory: Yes: CTA Bilaterally Gastrointestinal: Yes: Normal Bowel Sounds Extremities: Yes: Other (wounds rlex/ both feet) Edema: Yes Edema: LLE: 3+, RLE: 3+ Neurological: Yes: Alert, Oriented Labs: CBC, BMP 01/02/18 06:00 01/02/18 06:00 Problem List - Problems (1) Fracture of ribs, multiple, closed Assessment/Plan: prn pain meds doing well Code(s): S22.49XA - MULTIPLE FRACTURES OF RIBS, UNSP SIDE, INIT FOR CLOS FX Qualifiers: Encounter type: subsequent encounter Laterality: right Fracture healing: with routine healing Qualified Code(s): S22.41XD - Multiple fractures of ribs , right side, subsequent encounter for fracture with routine healing (2) Pneumonia Assessment/Plan: on abx per id cxs sent recovering on NC Code(s): J18.9 - PNEUMONIA, UNSPECIFIED ORGANISM Qualifiers: Pneumonia type: due to unspecified organism Laterality: bilateral Lung location: lower lobe of lung Qualified Code(s): J18.1 - Lobar pneumonia, unspecified organism (3) ESRD (end stage renal disease) on dialysis Assessment/Plan: on hd renal on board Code(s): N18.6 - END STAGE RENAL DISEASE; Z99.2 - DEPENDENCE ON RENAL DIALYSIS (4) Diabetes mellitus, insulin dependent (IDDM), uncontrolled Assessment/Plan: on insulin bgms Code(s): E10.65 - TYPE 1 DIABETES MELLITUS WITH HYPERGLYCEMIA (5) Ulcer of right leg Code(s): L97.919 - NON-PRS CHRONIC ULC UNSP PRT OF R LOW LEG W UNSP SEVERITY Qualifiers: Non-pressure ulcer stage: with fat layer exposed Qualified Code(s): L97.912 - Non-pressure chronic ulcer of unspecified part of right lower leg with fat layer exposed (6) Anemia Assessment/Plan: fu cbc transfuse if needed Code(s): D64.9 - ANEMIA, UNSPECIFIED Qualifiers: Anemia type: due to chronic kidney disease Chronic kidney disease stage: on chronic dialysis Qualified Code(s): N18.6 - End stage renal disease; D63.1 - Anemia in chronic kidney disease; Z99.2 - Dependence on renal dialysis
[2018-01-03] MEDS ORDERED: PIPERACILLIN/TAZOBACTAM 2.25 GM VIAL IVPB ONE (01:18)
[2018-01-03] MEDS ORDERED: DEXTROSE 5%-WATER - 50 ML IVPB ONE (01:18)
[2018-01-03] MEDS: PIPERACILLIN/TAZOB 2.25 GM 2.25 GM in DEXTROSE 5%-WATER - 50 ML IVPB SCH (01:20)
[2018-01-03] MEDS: INSULIN SLIDING SCALE (NOVOLOG) 1 VIAL SQ SCH ×4 (06:41→21:52)
[2018-01-03] MEDS: INSULIN (LEVEMIR) 100 UNITS/ML UNITS SQ SCH ×2 (06:42→21:49)
[2018-01-03] MEDS: cloNIDine HCL 0.1 MG TABLET PO SCH ×4 (06:43→21:47)
[2018-01-03] MEDS: oxyCODONE HCL 5 MG TABLET PO PRN ×2 (06:43→15:53)
[2018-01-03] MEDS: ALBUTEROL SO4 0.083% IH SOL 2.5 MG/3 ML VIAL.NEB. NEB SCH ×4 (07:40→20:02)
[2018-01-03] MEDS: LOSARTAN POTASSIUM 50 MG TABLET (FP) PO SCH ×2 (07:52→09:47)
[2018-01-03] MEDS: LABETALOL HCL 200 MG TABLET (FP) PO SCH ×3 (07:53→21:48)
--- NOTE | 2018-01-03 08:58 | PN ---
Progress Note, Physician History of Present Illness: patient doing well says she feels a little overloaded breathing well - Current Medication List Current Medications: Active Medications Albuterol Sulfate (Ventolin 0.083% Nebulizer Soln -) 1 amp NEB RQID [facility] Last Admin: 01/02/18 20:38 Dose: 1 amp Clonidine (Catapres -) 0.3 mg PO TID [facility] Last Admin: 01/03/18 06:43 Dose: 0.3 mg Collagenase (Santyl -) 1 applic TP DAILY [facility]; Protocol Last Admin: 01/02/18 11:05 Dose: 1 applic Epoetin Abiel (Epogen -) 20,000 unit IVPUSH ONCE ONE Stop: 01/03/18 06:01 Gabapentin (Neurontin -) 300 mg PO BID [facility] Last Admin: 01/02/18 22:40 Dose: 300 mg Guaifenesin (Robitussin -) 10 ml PO Q8H PRN PRN Reason: COUGH Heparin Sodium (Porcine) (Heparin -) 5,000 unit SQ BID [facility] Last Admin: 01/02/18 22:46 Dose: Not Given Heparin Sodium (Porcine) (Heparin -) 1,000 unit IVPUSH ONCE ONE Stop: 01/03/18 06:01 Piperacillin Sod/Tazobactam (Sod 2.25 gm/ Dextrose) 50 mls @ 100 mls/hr IVPB Q8H-IV [facility]; Protocol Last Admin: 01/03/18 01:20 Dose: 100 mls/hr Sodium Chloride (Normal Saline -) 250 mls @ 3,000 mls/hr IV PRN PRN PRN Reason: Hypotension during Dialysis Stop: 01/03/18 22:07 Insulin Aspart (Novolog Vial Sliding Scale -) 1 vial SQ ACHS [facility]; Protocol Last Admin: 01/03/18 06:41 Dose: 9 units Insulin Detemir (Levemir Vial) 13 units SQ BID@0700,2200 [facility] Last Admin: 01/03/18 06:42 Dose: 13 units Labetalol HCl (Normodyne -) 400 mg PO BID [facility] Last Admin: 01/02/18 22:41 Dose: 400 mg Losartan Potassium (Cozaar -) 100 mg PO DAILY [facility] Last Admin: 01/02/18 11:03 Dose: 100 mg Oxycodone HCl (Roxicodone -) 10 mg PO Q8H PRN PRN Reason: PAIN LEVEL 7 - 10 Last Admin: 01/03/18 06:43 Dose: 10 mg - Objective Vital Signs: Vital Signs Temperature 98.1 F 01/03/18 06:00 Pulse Rate 91 H 01/03/18 06:00 Respiratory Rate 20 01/03/18 06:00 Blood Pressure 177/113 H 01/03/18 06:00 O2 Sat by Pulse Oximetry (%) 99 01/02/18 11:00 Constitutional: Yes: No Distress, Calm Cardiovascular: Yes: Regular Rate and Rhythm Respiratory: Yes: Regular, CTA Bilaterally Gastrointestinal: Yes: Normal Bowel Sounds, Soft Musculoskeletal: Yes: WNL Extremities: Yes: Other Wound/Incision: Yes: Dressing Dry and Intact Neurological: Yes: Alert, Oriented Psychiatric: Yes: Alert Labs: CBC, BMP 01/02/18 06:00 01/02/18 06:00 Assessment/Plan Acute Hypoxic Respiratory Failure Pneumonia Sepsis Diabetic Ketoacidosis improving ESRD on HD h/o LA Thrombus HTN plan will stop abx continue dialysis will monitor off of abx rest as per the team
[2018-01-03] MEDS: HEPARIN NA (PORCINE) 5,000 UNITS/ML 1ML VIAL SQ SCH ×2 (09:50→21:47)
[2018-01-03] MEDS ORDERED: SODIUM CHLORIDE 250 ML IV PRN (10:00)
--- NOTE | 2018-01-03 10:22 | PN ---
Progress Note (short form) - Note Progress Note: Overall improving. No acute events overnight. Some residual cough. Intake & Output 12/31/17 01/01/18 01/02/18 01/03/18 23:59 23:59 23:59 23:59 Intake Total 8550 839 2983 Output Total 0 0 0 0 Balance 2292 506 9646 0 Weight 145 lb 8 oz 147 lb 146 lb 3.2 oz 148 lb 3.2 oz Last Vital Signs Temp Pulse Resp BP Pulse Ox 98.1 F 91 H 20 177/113 H 99 01/03/18 06:00 01/03/18 06:00 01/03/18 06:00 01/03/18 06:00 01/02/18 11:00 Active Medications Albuterol Sulfate (Ventolin 0.083% Nebulizer Soln -) 1 amp NEB RQID [facility] Last Admin: 01/02/18 20:38 Dose: 1 amp Clonidine (Catapres -) 0.3 mg PO TID [facility] Last Admin: 01/03/18 06:43 Dose: 0.3 mg Collagenase (Santyl -) 1 applic TP DAILY [facility]; Protocol Last Admin: 01/02/18 11:05 Dose: 1 applic Epoetin Abiel (Procrit -) 20,000 unit IVPUSH ONCE ONE Stop: 01/03/18 11:01 Gabapentin (Neurontin -) 300 mg PO BID [facility] Last Admin: 01/02/18 22:40 Dose: 300 mg Guaifenesin (Robitussin -) 10 ml PO Q8H PRN PRN Reason: COUGH Heparin Sodium (Porcine) (Heparin -) 5,000 unit SQ BID [facility] Last Admin: 01/03/18 09:50 Dose: Not Given Heparin Sodium (Porcine) (Heparin -) 1,000 unit IVPUSH ONCE ONE Stop: 01/03/18 10:46 Insulin Aspart (Novolog Vial Sliding Scale -) 1 vial SQ ACHS [facility]; Protocol Last Admin: 01/03/18 06:41 Dose: 9 units Insulin Detemir (Levemir Vial) 13 units SQ BID@0700,2200 [facility] Last Admin: 01/03/18 06:42 Dose: 13 units Labetalol HCl (Normodyne -) 400 mg PO BID [facility] Last Admin: 01/03/18 09:47 Dose: 400 mg Losartan Potassium (Cozaar -) 100 mg PO DAILY [facility] Last Admin: 01/03/18 09:47 Dose: 100 mg Oxycodone HCl (Roxicodone -) 10 mg PO Q8H PRN PRN Reason: PAIN LEVEL 7 - 10 Last Admin: 01/03/18 06:43 Dose: 10 mg GENERAL: Awake, alert, and oriented. NAD HEAD: Normal with no signs of trauma. EYES: Puffy eyes, pallor +, no icterus. EARS, NOSE, THROAT: Ears normal. Moist mucous membranes. NECK: Supple. LUNGS: bibasilar rhonchi Right > Left. No wheezes. HEART: Tachycardic, Regular rate and rhythm, normal S1 and S2 with systolic murmur. ABDOMEN: Soft, nontender,no organomegaly. MUSCULOSKELETAL: Normal range of motion at all joints. No bony deformities or tenderness. No CVA tenderness. UPPER EXTREMITIES: LUE AVF functioning, 2+ pulses, warm. LOWER EXTREMITIES: Edematous with multiple areas of dressed wounds. NEUROLOGICAL: Non-focal. PSYCHIATRIC: Cooperative. SKIN: Warm, multiple wounds/ulcers. Laboratory Results - last 24 hr 01/02/18 01/02/18 01/02/18 11:42 18:06 22:36 POC Glucometer 136 349 393 01/03/18 06:40 POC Glucometer 435 IMP: Acute Respiratory failure requiring HF NC O2 ESRD on HD (M,W,F LUE AVF) IDDM HTN PVD Atrial thrombus Cardiac Arrest by history Suspected Pneumonia Right Foot ulcer History of Non-compliance Rib Fracture Do not suspect ARDS at this time Hyperglycemia: do not suspect DKA NC O2 as tolerated HD for volume removal Aspiration precautions Currently off ABX per ID BD TX Pain control Incentive spirometry Dr Ballesteros
[2018-01-03] MEDS ORDERED: HEPARIN NA (PORCINE) 5,000 UNITS/ML 1ML VIAL IVPUSH ONE (10:45)
[2018-01-03] MEDS ORDERED: EPOETIN ALFA 20,000 UNIT/1 ML VIAL IVPUSH ONE (11:00)
[2018-01-03 12:07] LABS: HEMATOCRIT 30.7 % (32.4-45.2); HEMOGLOBIN 9.6 GM/dL (10.7-15.3); MCHC 31.3 g/dl (32.0-36.0); PLATELET COUNT 314 K/MM3 (134-434); RDW 17.4 % (11.6-15.6); WHITE BLOOD COUNT 9.2 K/mm3 (4.0-10.0)
[2018-01-03 12:39] LABS: ALBUMIN 2.5 g/dl (3.4-5.0); ALK PHOS 931 U/L (45-117); ANION GAP 15 MMOL/L (8-16); BILIRUBIN,TOTAL 0.4 mg/dL (0.2-1); BLOOD UREA NITROGEN 49 mg/dL (7-18); CALCIUM 8.7 mg/dL (8.5-10.1); CHLORIDE 98 mmol/L (98-107); CO2 24 mmol/L (21-32); CREATININE 5.7 mg/dL (0.55-1.3); PHOSPHOROUS 5.5 mg/dL (2.5-4.9); POTASSIUM 4.2 mmol/L (3.5-5.1); SGOT/AST 26 U/L (15-37); SGPT/ALT 24 U/L (13-61); SODIUM 137 mmol/L (136-145); TOT PROT 7.6 g/dl (6.4-8.2)
[2018-01-03 12:40] LABS: GLUCOSE,RANDOM 320 mg/dL (74-106)
[2018-01-03] MEDS ORDERED: INSULIN (NOVOLOG) ASPART 100 UNITS/ML 10ML VIAL ONE (12:44)
--- NOTE | 2018-01-03 13:26 | PN ---
Progress Note, Physician Chief Complaint: The patient seen on HD. Reports feeling well. Still short of breath, and coughing. No chest pain. Massive Lower extremity swelling. - Current Medication List Current Medications: Active Medications Albuterol Sulfate (Ventolin 0.083% Nebulizer Soln -) 1 amp NEB RQID [facility] Last Admin: 01/03/18 07:40 Dose: 1 amp Clonidine (Catapres -) 0.3 mg PO TID [facility] Last Admin: 01/03/18 06:43 Dose: 0.3 mg Collagenase (Santyl -) 1 applic TP DAILY [facility]; Protocol Last Admin: 01/02/18 11:05 Dose: 1 applic Gabapentin (Neurontin -) 300 mg PO BID [facility] Last Admin: 01/02/18 22:40 Dose: 300 mg Guaifenesin (Robitussin -) 10 ml PO Q8H PRN PRN Reason: COUGH Heparin Sodium (Porcine) (Heparin -) 5,000 unit SQ BID [facility] Last Admin: 01/03/18 09:50 Dose: Not Given Insulin Aspart (Novolog Vial Sliding Scale -) 1 vial SQ ACHS [facility]; Protocol Last Admin: 01/03/18 12:53 Dose: Not Given Insulin Detemir (Levemir Vial) 13 units SQ BID@0700,2200 [facility] Last Admin: 01/03/18 06:42 Dose: 13 units Labetalol HCl (Normodyne -) 400 mg PO BID [facility] Last Admin: 01/03/18 09:47 Dose: 400 mg Losartan Potassium (Cozaar -) 100 mg PO DAILY [facility] Last Admin: 01/03/18 09:47 Dose: 100 mg Oxycodone HCl (Roxicodone -) 10 mg PO Q8H PRN PRN Reason: PAIN LEVEL 7 - 10 Last Admin: 01/03/18 06:43 Dose: 10 mg - Objective Vital Signs: Vital Signs Temperature 98.0 F 01/03/18 08:00 Pulse Rate 91 H 01/03/18 12:50 Respiratory Rate 18 01/03/18 12:50 Blood Pressure 151/99 01/03/18 12:50 O2 Sat by Pulse Oximetry (%) 99 01/02/18 11:00 Constitutional: Yes: Well Nourished, Mild Distress, Pallor HENT: Yes: Atraumatic, Normocephalic Cardiovascular: Yes: Regular Rate and Rhythm, S1, S2 Respiratory: Yes: Diminished, Rales, Rhonchi Gastrointestinal: Yes: Soft Genitourinary: No: Bladder Distention, CVA Tenderness - Left, CVA Tenderness - Right Edema: Yes Edema: LLE: 3+, RLE: 3+ Neurological: Yes: Alert, Oriented Labs: CBC, BMP 01/03/18 11:30 01/03/18 11:30 Assessment/Plan 27 year old woman with hx of ESRD on HD (MWF), DM type 2, Hypertension, Hx fo PE , LE wounds, Chronic volume overload, Diastolic HF presented from home with complaints of SOB and admitted for Sepsis/PNA. Has marked fluid over load. PLAN: IV Antibiotics as ordered. HD with UF. Orders for HD reviewed with RN. Will plan on another HD tomorrow. Susie Peter MD
[2018-01-03 15:52] VITALS: BMI 25.4
[2018-01-03] MEDS: COLLAGENASE CLOSTRIDIUM HIST. 30 GRAMS TUBE TP SCH (15:53)
[2018-01-03] MEDS: GABAPENTIN 300 MG CAPSULE (FP) PO SCH ×2 (15:53→21:48)
[2018-01-03 16:24] LABS: CREATININE 2.4 mg/dL (0.55-1.3)
--- NOTE | 2018-01-03 18:04 | PN ---
Progress Note, Physician History of Present Illness: feeling good - Current Medication List Current Medications: Active Medications Albuterol Sulfate (Ventolin 0.083% Nebulizer Soln -) 1 amp NEB RQID [facility] Last Admin: 01/03/18 16:28 Dose: 1 amp Clonidine (Catapres -) 0.3 mg PO TID [facility] Last Admin: 01/03/18 15:53 Dose: 0.3 mg Collagenase (Santyl -) 1 applic TP DAILY [facility]; Protocol Last Admin: 01/03/18 15:53 Dose: 1 applic Gabapentin (Neurontin -) 300 mg PO BID [facility] Last Admin: 01/03/18 15:53 Dose: 300 mg Guaifenesin (Robitussin -) 10 ml PO Q8H PRN PRN Reason: COUGH Heparin Sodium (Porcine) (Heparin -) 5,000 unit SQ BID [facility] Last Admin: 01/03/18 09:50 Dose: Not Given Insulin Aspart (Novolog Vial Sliding Scale -) 1 vial SQ ACHS [facility]; Protocol Last Admin: 01/03/18 17:45 Dose: 5 units Insulin Detemir (Levemir Vial) 13 units SQ BID@0700,2200 [facility] Last Admin: 01/03/18 06:42 Dose: 13 units Labetalol HCl (Normodyne -) 400 mg PO BID [facility] Last Admin: 01/03/18 09:47 Dose: 400 mg Losartan Potassium (Cozaar -) 100 mg PO DAILY [facility] Last Admin: 01/03/18 09:47 Dose: 100 mg Oxycodone HCl (Roxicodone -) 10 mg PO Q8H PRN PRN Reason: PAIN LEVEL 7 - 10 Last Admin: 01/03/18 15:53 Dose: 10 mg - Objective Vital Signs: Vital Signs Temperature 98.0 F 01/03/18 08:00 Pulse Rate 93 H 01/03/18 17:12 Respiratory Rate 18 01/03/18 17:12 Blood Pressure 192/106 H 01/03/18 17:12 O2 Sat by Pulse Oximetry (%) 99 01/02/18 11:00 Constitutional: Yes: No Distress HENT: Yes: Atraumatic Neck: Yes: Supple Cardiovascular: Yes: Regular Rate and Rhythm Respiratory: Yes: CTA Bilaterally Gastrointestinal: Yes: Normal Bowel Sounds Extremities: Yes: Other (wounds rlex and both feet) Edema: Yes Edema: LLE: 2+, RLE: 3+ Neurological: Yes: Alert, Oriented Labs: CBC, BMP 01/03/18 11:30 01/03/18 15:00 Problem List - Problems (1) Fracture of ribs, multiple, closed Assessment/Plan: prn pain meds doing well Code(s): S22.49XA - MULTIPLE FRACTURES OF RIBS, UNSP SIDE, INIT FOR CLOS FX Qualifiers: Encounter type: subsequent encounter Laterality: right Fracture healing: with routine healing Qualified Code(s): S22.41XD - Multiple fractures of ribs , right side, subsequent encounter for fracture with routine healing (2) Pneumonia Assessment/Plan: completed abx course Code(s): J18.9 - PNEUMONIA, UNSPECIFIED ORGANISM Qualifiers: Pneumonia type: due to unspecified organism Laterality: bilateral Lung location: lower lobe of lung Qualified Code(s): J18.1 - Lobar pneumonia, unspecified organism (3) ESRD (end stage renal disease) on dialysis Assessment/Plan: [facility] Code(s): N18.6 - END STAGE RENAL DISEASE; Z99.2 - DEPENDENCE ON RENAL DIALYSIS (4) Diabetes mellitus, insulin dependent (IDDM), uncontrolled Assessment/Plan: on insulin bgms Code(s): E10.65 - TYPE 1 DIABETES MELLITUS WITH HYPERGLYCEMIA (5) Ulcer of right leg Assessment/Plan: wound care Code(s): L97.919 - NON-PRS CHRONIC ULC UNSP PRT OF R LOW LEG W UNSP SEVERITY Qualifiers: Non-pressure ulcer stage: with fat layer exposed Qualified Code(s): L97.912 - Non-pressure chronic ulcer of unspecified part of right lower leg with fat layer exposed (6) Anemia Assessment/Plan: h/h stable Code(s): D64.9 - ANEMIA, UNSPECIFIED Qualifiers: Anemia type: due to chronic kidney disease Chronic kidney disease stage: on chronic dialysis Qualified Code(s): N18.6 - End stage renal disease; D63.1 - Anemia in chronic kidney disease; Z99.2 - Dependence on renal dialysis
[2018-01-03] MEDS ORDERED: hydrALAZINE HCL 50 MG TABLET (FP) PO ONE (18:15)
[2018-01-04] MEDS ORDERED: oxyCODONE HCL 5 MG TABLET ONE (00:39)
[2018-01-04] MEDS: oxyCODONE HCL 5 MG TABLET PO PRN ×3 (00:45→19:09)
[2018-01-04] MEDS: cloNIDine HCL 0.1 MG TABLET PO SCH ×3 (06:04→22:01)
[2018-01-04] MEDS: INSULIN SLIDING SCALE (NOVOLOG) 1 VIAL SQ SCH ×4 (06:12→22:01)
[2018-01-04] MEDS: INSULIN (LEVEMIR) 100 UNITS/ML UNITS SQ SCH ×2 (06:12→22:01)
[2018-01-04] MEDS: ALBUTEROL SO4 0.083% IH SOL 2.5 MG/3 ML VIAL.NEB. NEB SCH ×4 (07:40→20:27)
--- NOTE | 2018-01-04 08:25 | PN ---
Progress Note, Physician History of Present Illness: doing well no issues - Current Medication List Current Medications: Active Medications Albuterol Sulfate (Ventolin 0.083% Nebulizer Soln -) 1 amp NEB RQID [facility] Last Admin: 01/03/18 20:02 Dose: 1 amp Clonidine (Catapres -) 0.3 mg PO TID [facility] Last Admin: 01/04/18 06:04 Dose: 0.3 mg Collagenase (Santyl -) 1 applic TP DAILY [facility]; Protocol Last Admin: 01/03/18 15:53 Dose: 1 applic Gabapentin (Neurontin -) 300 mg PO BID [facility] Last Admin: 01/03/18 21:48 Dose: 300 mg Guaifenesin (Robitussin -) 10 ml PO Q8H PRN PRN Reason: COUGH Heparin Sodium (Porcine) (Heparin -) 5,000 unit SQ BID [facility] Last Admin: 01/03/18 21:47 Dose: Not Given Insulin Aspart (Novolog Vial Sliding Scale -) [address] [facility]; Protocol Last Admin: 01/04/18 06:12 Dose: 4 units Insulin Detemir (Levemir Vial) 13 units SQ BID@0700,2200 [facility] Last Admin: 01/04/18 06:12 Dose: 13 units Labetalol HCl (Normodyne -) 400 mg PO BID [facility] Last Admin: 01/03/18 21:48 Dose: 400 mg Losartan Potassium (Cozaar -) 100 mg PO DAILY [facility] Last Admin: 01/03/18 09:47 Dose: 100 mg Oxycodone HCl (Roxicodone -) 10 mg PO Q8H PRN PRN Reason: PAIN LEVEL 7 - 10 Last Admin: 01/04/18 00:45 Dose: 10 mg - Objective Vital Signs: Vital Signs Temperature 98.0 F 01/03/18 08:00 Pulse Rate 92 H 01/04/18 07:59 Respiratory Rate 20 01/04/18 07:59 Blood Pressure 188/110 H 01/04/18 07:59 O2 Sat by Pulse Oximetry (%) 99 01/03/18 21:00 Constitutional: Yes: No Distress, Calm Cardiovascular: Yes: Regular Rate and Rhythm Respiratory: Yes: Regular, CTA Bilaterally, On Nasal O2 Gastrointestinal: Yes: Normal Bowel Sounds, Soft Musculoskeletal: Yes: WNL Extremities: Yes: Other Wound/Incision: Yes: Dressing Dry and Intact Psychiatric: Yes: Alert, Oriented Labs: CBC, BMP 01/03/18 11:30 01/03/18 15:00 Assessment/Plan Acute Hypoxic Respiratory Failure Pneumonia Sepsis Diabetic Ketoacidosis improving ESRD on HD h/o LA Thrombus HTN stable off of abx plan continue current mgmt rest as per the team dialysis improving
[2018-01-04] MEDS: LABETALOL HCL 200 MG TABLET (FP) PO SCH ×2 (09:44→22:01)
[2018-01-04] MEDS: LOSARTAN POTASSIUM 50 MG TABLET (FP) PO SCH (09:44)
[2018-01-04] MEDS: HEPARIN NA (PORCINE) 5,000 UNITS/ML 1ML VIAL SQ SCH ×2 (09:44→21:55)
[2018-01-04] MEDS: GABAPENTIN 300 MG CAPSULE (FP) PO SCH ×2 (09:44→22:01)
--- NOTE | 2018-01-04 10:30 | PN ---
Progress Note (short form) - Note Progress Note: Overall improving. Some chronic musculoskeletal issues. No acute events overnight. Some residual cough. Intake & Output 01/01/18 01/02/18 01/03/18 01/04/18 23:59 23:59 23:59 23:59 Intake Total 100 1100 150 Output Total 0 0 0 Balance 100 1100 150 Weight 147 lb 146 lb 3.2 oz 148 lb 3.2 oz Last Vital Signs Temp Pulse Resp BP Pulse Ox 98.0 F 92 H 20 188/110 H 99 01/03/18 08:00 01/04/18 07:59 01/04/18 07:59 01/04/18 07:59 01/03/18 21:00 Active Medications Albuterol Sulfate (Ventolin 0.083% Nebulizer Soln -) 1 amp NEB RQID [facility] Last Admin: 01/03/18 20:02 Dose: 1 amp Clonidine (Catapres -) 0.3 mg PO TID [facility] Last Admin: 01/04/18 06:04 Dose: 0.3 mg Collagenase (Santyl -) 1 applic TP DAILY [facility]; Protocol Last Admin: 01/03/18 15:53 Dose: 1 applic Gabapentin (Neurontin -) 300 mg PO BID [facility] Last Admin: 01/04/18 09:44 Dose: 300 mg Guaifenesin (Robitussin -) 10 ml PO Q8H PRN PRN Reason: COUGH Heparin Sodium (Porcine) (Heparin -) 5,000 unit SQ BID [facility] Last Admin: 01/04/18 09:44 Dose: Not Given Insulin Aspart (Novolog Vial Sliding Scale -) 1 vial SQ ACHS [facility]; Protocol Last Admin: 01/04/18 06:12 Dose: 4 units Insulin Detemir (Levemir Vial) 13 units SQ BID@0700,2200 [facility] Last Admin: 01/04/18 06:12 Dose: 13 units Labetalol HCl (Normodyne -) 400 mg PO BID [facility] Last Admin: 01/04/18 09:44 Dose: 400 mg Losartan Potassium (Cozaar -) 100 mg PO DAILY [facility] Last Admin: 01/04/18 09:44 Dose: 100 mg Oxycodone HCl (Roxicodone -) 10 mg PO Q8H PRN PRN Reason: PAIN LEVEL 7 - 10 Last Admin: 01/04/18 09:43 Dose: 10 mg GENERAL: Awake, alert, and oriented. NAD HEAD: Normal with no signs of trauma. EYES: Puffy eyes, pallor +, no icterus. EARS, NOSE, THROAT: Ears normal. Moist mucous membranes. NECK: Supple. LUNGS: bibasilar rhonchi Right > Left. No wheezes. HEART: Tachycardic, Regular rate and rhythm, normal S1 and S2 with systolic murmur. ABDOMEN: Soft, nontender,no organomegaly. MUSCULOSKELETAL: Normal range of motion at all joints. No bony deformities or tenderness. No CVA tenderness. UPPER EXTREMITIES: LUE AVF functioning, 2+ pulses, warm. LOWER EXTREMITIES: Edematous with multiple areas of dressed wounds. NEUROLOGICAL: Non-focal. PSYCHIATRIC: Cooperative. SKIN: Warm, multiple wounds/ulcers. Laboratory Results - last 24 hr 01/03/18 01/03/18 01/03/18 11:30 11:30 15:00 WBC 9.2 RBC 3.70 Hgb 9.6 L Hct 30.7 L MCV 83.0 MCH 26.0 MCHC 31.3 L RDW 17.4 H Plt Count 314 MPV 9.0 Sodium 137 Potassium 4.2 Chloride 98 Carbon Dioxide 24 Anion Gap 15 BUN 49 H 19 H Creatinine 5.7 H 2.4 H Creat Clearance w eGFR 8.86 POC Glucometer Random Glucose 320 H* Calcium 8.7 Phosphorus 5.5 H Total Bilirubin 0.4 AST 26 ALT 24 Alkaline Phosphatase 931 H Total Protein 7.6 Albumin 2.5 L 01/03/18 01/03/18 01/04/18 17:08 21:52 06:10 WBC RBC Hgb Hct MCV MCH MCHC RDW Plt Count MPV Sodium Potassium Chloride Carbon Dioxide Anion Gap BUN Creatinine Creat Clearance w eGFR POC Glucometer 315 347 297 Random Glucose Calcium Phosphorus Total Bilirubin AST ALT Alkaline Phosphatase Total Protein Albumin IMP: Acute Respiratory failure requiring HF NC O2 ESRD on HD (M,W,F LUE AVF) IDDM HTN PVD Atrial thrombus Cardiac Arrest by history Suspected Pneumonia Right Foot ulcer History of Non-compliance Rib Fracture Do not suspect ARDS at this time Hyperglycemia: do not suspect DKA NC O2 as tolerated HD for volume removal Aspiration precautions Currently off ABX per ID BD TX Pain control Incentive spirometry D/C planning Dr Ballesteros
--- NOTE | 2018-01-04 11:49 | PN ---
Progress Note, Physician Chief Complaint: Events noted Not in distress History of Present Illness: Patient was seen and examined. Awake and alert. Chart was reviewed - Current Medication List Current Medications: Active Medications Albuterol Sulfate (Ventolin 0.083% Nebulizer Soln -) 1 amp NEB RQID [facility] Last Admin: 01/03/18 20:02 Dose: 1 amp Clonidine (Catapres -) 0.3 mg PO TID [facility] Last Admin: 01/04/18 06:04 Dose: 0.3 mg Collagenase (Santyl -) 1 applic TP DAILY [facility]; Protocol Last Admin: 01/03/18 15:53 Dose: 1 applic Gabapentin (Neurontin -) 300 mg PO BID [facility] Last Admin: 01/04/18 09:44 Dose: 300 mg Guaifenesin (Robitussin -) 10 ml PO Q8H PRN PRN Reason: COUGH Heparin Sodium (Porcine) (Heparin -) 5,000 unit SQ BID [facility] Last Admin: 01/04/18 09:44 Dose: Not Given Insulin Aspart (Novolog Vial Sliding Scale -) 1 vial SQ [facility]; Protocol Last Admin: 01/04/18 06:12 Dose: 4 units Insulin Detemir (Levemir Vial) 13 units SQ BID@0700,2200 [facility] Last Admin: 01/04/18 06:12 Dose: 13 units Labetalol HCl (Normodyne -) 400 mg PO BID [facility] Last Admin: 01/04/18 09:44 Dose: 400 mg Losartan Potassium (Cozaar -) 100 mg PO DAILY [facility] Last Admin: 01/04/18 09:44 Dose: 100 mg Oxycodone HCl (Roxicodone -) 10 mg PO Q8H PRN PRN Reason: PAIN LEVEL 7 - 10 Last Admin: 01/04/18 09:43 Dose: 10 mg - Objective Vital Signs: Vital Signs Temperature 98.0 F 01/03/18 08:00 Pulse Rate 92 H 01/04/18 07:59 Respiratory Rate 20 01/04/18 07:59 Blood Pressure 188/110 H 01/04/18 07:59 O2 Sat by Pulse Oximetry (%) 99 01/03/18 21:00 HENT: Yes: Atraumatic Neck: Yes: Supple Cardiovascular: Yes: Regular Rate and Rhythm, S1, S2 Respiratory: Yes: Diminished Gastrointestinal: Yes: Normal Bowel Sounds, Soft. No: Tenderness Edema: Yes Edema: LLE: 3+, RLE: 3+ Wound/Incision: Yes: Dressing Dry and Intact Labs: CBC, BMP 01/03/18 11:30 01/03/18 15:00 Problem List - Problems (1) Diastolic dysfunction with heart failure Code(s): I50.30 - UNSPECIFIED DIASTOLIC (CONGESTIVE) HEART FAILURE Qualifiers: Heart failure chronicity: acute on chronic Qualified Code(s): I50.33 - Acute on chronic diastolic (congestive) heart failure (2) Pneumonia Code(s): J18.9 - PNEUMONIA, UNSPECIFIED ORGANISM Qualifiers: Pneumonia type: due to unspecified organism Laterality: bilateral Lung location: lower lobe of lung Qualified Code(s): J18.1 - Lobar pneumonia, unspecified organism (3) ESRD (end stage renal disease) on dialysis Code(s): N18.6 - END STAGE RENAL DISEASE; Z99.2 - DEPENDENCE ON RENAL DIALYSIS (4) Anemia Code(s): D64.9 - ANEMIA, UNSPECIFIED Qualifiers: Anemia type: due to chronic kidney disease Chronic kidney disease stage: on chronic dialysis Qualified Code(s): N18.6 - End stage renal disease; D63.1 - Anemia in chronic kidney disease; Z99.2 - Dependence on renal dialysis (6) DKA (diabetic ketoacidoses) Code(s): E13.10 - OTH DIABETES MELLITUS WITH KETOACIDOSIS WITHOUT COMA Qualifiers: Diabetes mellitus type: type 1 Diabetes mellitus complication detail: with coma Qualified Code(s): E10.11 - Type 1 diabetes mellitus with ketoacidosis with coma (7) Diabetes mellitus type 1 with peripheral artery disease Code(s): E10.51 - TYPE 1 DIABETES W DIABETIC PERIPHERAL ANGIOPATH W/O GANGRENE (8) Chronic GERD Code(s): K21.9 - GASTRO-ESOPHAGEAL REFLUX DISEASE WITHOUT ESOPHAGITIS (9) HTN (hypertension) Code(s): I10 - ESSENTIAL (PRIMARY) HYPERTENSION Qualifiers: Hypertension type: unspecified Qualified Code(s): I10 - Essential (primary ) hypertension Assessment/Plan 1. Acute Hypoxic Respiratory Failure - Pneumonia and sepsis 2. Diastolic LV dysfunction with class I NYHA classification LV failure, volume overload 3. History of LA myxoma post resection 4. History of LA thrombus 5. HTN 6. IDDM 7. ESRD on HD 8. PVD Right Foot ulcer 9. Anemia 10. CKD PLAN: 1. HD/UF as per renal service 2. Continue Catapres, Labetolol, Losartan 3. DVT prophylaxis Marck Torres MD
[2018-01-04] MEDS ORDERED: INSULIN (NOVOLOG) ASPART 100 UNITS/ML 10ML VIAL ONE (12:54)
--- NOTE | 2018-01-04 16:18 | PN ---
Progress Note (short form) - Note Progress Note: Renal follow up for ESRD on HD Pt seen and examined during dialysis BP stable, AVF with good flow UF goal is 3.5L bath changed to 3k Vital Signs Temperature 98.2 F 01/04/18 14:55 Pulse Rate 70 01/04/18 15:00 Respiratory Rate 18 01/04/18 15:00 Blood Pressure 140/85 01/04/18 15:00 O2 Sat by Pulse Oximetry (%) 99 01/03/18 21:00 Intake & Output 01/01/18 01/02/18 01/03/18 01/04/18 23:59 23:59 23:59 23:59 Intake Total 100 1100 150 400 Output Total 0 0 0 Balance 100 1100 150 400 Weight 66.678 kg 66.315 kg 67.222 kg Mild SOB, on venti mask Neck supple MMM tachycardic, no M/R Dec BS b/l lung bases soft NT/ND Abd + jose ain LE CBC, BMP 01/03/18 11:30 01/03/18 15:00 Current Medications Albuterol Sulfate (Ventolin 0.083% Nebulizer Soln -) 1 amp NEB RQID [facility] Last Admin: 01/04/18 13:24 Dose: Not Given Clonidine (Catapres -) 0.3 mg PO TID [facility] Last Admin: 01/04/18 14:24 Dose: 0.3 mg Collagenase (Santyl -) 1 applic TP DAILY [facility]; Protocol Last Admin: 01/03/18 15:53 Dose: 1 applic Gabapentin (Neurontin -) 300 mg PO BID [facility] Last Admin: 01/04/18 09:44 Dose: 300 mg Guaifenesin (Robitussin -) 10 ml PO Q8H PRN PRN Reason: COUGH Heparin Sodium (Porcine) (Heparin -) 5,000 unit SQ BID [facility] Last Admin: 01/04/18 09:44 Dose: Not Given Insulin Aspart (Novolog Vial Sliding Scale -) 1 vial SQ ACHS [facility]; Protocol Last Admin: 01/04/18 12:59 Dose: 3 units Insulin Detemir (Levemir Vial) 13 units SQ BID@0700,2200 [facility] Last Admin: 01/04/18 06:12 Dose: 13 units Labetalol HCl (Normodyne -) 400 mg PO BID [facility] Last Admin: 01/04/18 09:44 Dose: 400 mg Losartan Potassium (Cozaar -) 100 mg PO DAILY [facility] Last Admin: 01/04/18 09:44 Dose: 100 mg Oxycodone HCl (Roxicodone -) 10 mg PO Q8H PRN PRN Reason: PAIN LEVEL 7 - 10 Last Admin: 01/04/18 09:43 Dose: 10 mg 27 year old woman with hx of ESRD on Hd (MWF), DM type 2, Hypertension, Hx fo PE , LE wounds, Chronic volume overload, Diastolic HF presented from home with complaints of SOB and admitted for Sepsis/PNA. #Sepsis secondary to RLL PNA #ESRD on Hd with Hyperkalemia #Metabolic acidosis from renal failure +/- DKA #DM type 1 with uncontrolled blood glucose #Anemia #Hypertension tolerating HD well today UF as tolerated possible discharge home today can resume dialysis as outpatient Nathan Vo DO
[2018-01-04] MEDS: COLLAGENASE CLOSTRIDIUM HIST. 30 GRAMS TUBE TP SCH (19:03)
--- NOTE | 2018-01-04 22:33 | PN ---
Progress Note, Physician - Current Medication List Current Medications: Active Medications Albuterol Sulfate (Ventolin 0.083% Nebulizer Soln -) 1 amp NEB RQID [facility] Last Admin: 01/04/18 20:27 Dose: 1 amp Clonidine (Catapres -) 0.3 mg PO TID [facility] Last Admin: 01/04/18 22:01 Dose: 0.3 mg Collagenase (Santyl -) 1 applic TP DAILY [facility]; Protocol Last Admin: 01/04/18 19:03 Dose: Not Given Gabapentin (Neurontin -) 300 mg PO BID [facility] Last Admin: 01/04/18 22:01 Dose: 300 mg Guaifenesin (Robitussin -) 10 ml PO Q8H PRN PRN Reason: COUGH Heparin Sodium (Porcine) (Heparin -) 5,000 unit SQ BID [facility] Last Admin: 01/04/18 21:55 Dose: Not Given Insulin Aspart (Novolog Vial Sliding Scale -) 1 vial SQ ACHS [facility]; Protocol Last Admin: 01/04/18 22:01 Dose: 3 units Insulin Detemir (Levemir Vial) 13 units SQ BID@0700,2200 [facility] Last Admin: 01/04/18 22:01 Dose: 13 units Labetalol HCl (Normodyne -) 400 mg PO BID [facility] Last Admin: 01/04/18 22:01 Dose: 400 mg Losartan Potassium (Cozaar -) 100 mg PO DAILY [facility] Last Admin: 01/04/18 09:44 Dose: 100 mg Oxycodone HCl (Roxicodone -) 10 mg PO Q8H PRN PRN Reason: PAIN LEVEL 7 - 10 Last Admin: 01/04/18 19:09 Dose: 10 mg - Objective Vital Signs: Vital Signs Temperature 98.4 F 01/04/18 18:55 Pulse Rate 88 01/04/18 18:55 Respiratory Rate 20 01/04/18 18:55 Blood Pressure 159/96 01/04/18 18:55 O2 Sat by Pulse Oximetry (%) 99 01/04/18 09:00 Labs: CBC, BMP 01/03/18 11:30 01/03/18 15:00 Problem List - Problems (1) Anemia Code(s): D64.9 - ANEMIA, UNSPECIFIED Qualifiers: Anemia type: due to chronic kidney disease Chronic kidney disease stage: on chronic dialysis Qualified Code(s): N18.6 - End stage renal disease; D63.1 - Anemia in chronic kidney disease; Z99.2 - Dependence on renal dialysis (2) ESRD (end stage renal disease) Code(s): N18.6 - END STAGE RENAL DISEASE (3) Fracture of ribs, multiple, closed Code(s): S22.49XA - MULTIPLE FRACTURES OF RIBS, UNSP SIDE, INIT FOR CLOS FX Qualifiers: Encounter type: subsequent encounter Laterality: right Fracture healing: with routine healing Qualified Code(s): S22.41XD - Multiple fractures of ribs , right side, subsequent encounter for fracture with routine healing (4) Pneumonia Code(s): J18.9 - PNEUMONIA, UNSPECIFIED ORGANISM Qualifiers: Pneumonia type: due to unspecified organism Laterality: bilateral Lung location: lower lobe of lung Qualified Code(s): J18.1 - Lobar pneumonia, unspecified organism (5) Ulcer of right leg Code(s): L97.919 - NON-PRS CHRONIC ULC UNSP PRT OF R LOW LEG W UNSP SEVERITY Qualifiers: Non-pressure ulcer stage: with fat layer exposed Qualified Code(s): L97.912 - Non-pressure chronic ulcer of unspecified part of right lower leg with fat layer exposed (6) Anemia Code(s): D64.9 - ANEMIA, UNSPECIFIED Qualifiers: Folate deficiency anemia type: dietary (7) HTN (hypertension) Code(s): I10 - ESSENTIAL (PRIMARY) HYPERTENSION Qualifiers: Hypertension type: unspecified Qualified Code(s): I10 - Essential (primary ) hypertension
[2018-01-05] MEDS: oxyCODONE HCL 5 MG TABLET PO PRN ×3 (04:23→20:44)
[2018-01-05] MEDS: cloNIDine HCL 0.1 MG TABLET PO SCH ×3 (06:35→22:06)
[2018-01-05] MEDS: INSULIN (LEVEMIR) 100 UNITS/ML UNITS SQ SCH ×2 (06:39→22:07)
[2018-01-05] MEDS: INSULIN SLIDING SCALE (NOVOLOG) 1 VIAL SQ SCH ×4 (06:39→22:07)
[2018-01-05] MEDS: ALBUTEROL SO4 0.083% IH SOL 2.5 MG/3 ML VIAL.NEB. NEB SCH ×4 (08:39→20:25)
--- NOTE | 2018-01-05 10:25 | DS ---
Physical Examination Vital Signs: Vital Signs Temperature 98.2 F 01/05/18 07:03 Pulse Rate 88 01/05/18 07:03 Respiratory Rate 20 01/05/18 07:03 Blood Pressure 158/87 01/05/18 07:03 O2 Sat by Pulse Oximetry (%) 99 01/04/18 21:00 Labs: CBC, BMP 01/03/18 11:30 01/03/18 15:00 Discharge Summary Reason For Visit: ESRD/PNEUMONIA/TACHYCARDIA Current Active Problems DKA, type 1 (Acute) Diastolic dysfunction with heart failure (Acute) Fracture of ribs, multiple, closed (Acute) Pneumonia (Acute) Ulcer of right leg (Acute) ESRD (end stage renal disease) on dialysis (Chronic) Condition: Stable - Instructions Diet, Activity, Other Instructions: resume HD as out patient see your pmd 2-3 days Referrals: Monique Reyes MD [Primary Care Provider] - - Home Medications Comprehensive Discharge Medication List: Ambulatory Orders cloNIDine HCL [Catapres -] 0.3 mg PO TID 06/28/17 Collagenase Clostridium Hist. [Santyl -] 1 applic TP DAILY #1 tube 10/01/17 Insulin Detemir [Levemir Flextouch] 17 unit SQ BID #1 insuln.pen 10/01/17 Insulin Lispro [Humalog Kwikpen U-100] 100 unit SQ ASDIR #10 insuln.pen oxyCODONE HCL [Roxicodone -] 10 mg PO Q6H PRN #20 tablet MDD 4 10/29/17 Oxycodone HCl 10 mg PO Q6H PRN #15 tablet MDD 4 11/12/17 Albuterol 0.083% Nebulizer No [Ventolin 0.083% Nebulizer Soln -] 1 amp NEB Q6H #10 amp 12/02/17 Nebulizer Accessories [A.i.r.s. Nebulizer] 1 each PRN #1 kit 12/02/17 Gabapentin [Neurontin -] 300 mg PO BID 12/07/17 Insulin (Levemir) [Levemir Vial] 22 units SQ BIDI units 12/13/17 Insulin Sliding Scale [Novolog Vial Sliding Scale -] 1 vial SQ ACHS units 12/13 Labetalol HCl [Normodyne -] 400 mg PO BID tablet 12/13/17 Losartan Potassium [Cozaar -] 100 mg PO DAILY tablet 12/13/17 dc
[2018-01-05] MEDS ORDERED: SODIUM CHLORIDE 250 ML IV PRN ×2 (11:19→14:55)
[2018-01-05] MEDS: LOSARTAN POTASSIUM 50 MG TABLET (FP) PO SCH (11:55)
[2018-01-05] MEDS: HEPARIN NA (PORCINE) 5,000 UNITS/ML 1ML VIAL SQ SCH ×2 (11:56→22:06)
[2018-01-05] MEDS: GABAPENTIN 300 MG CAPSULE (FP) PO SCH ×2 (11:56→22:06)
[2018-01-05] MEDS: LABETALOL HCL 200 MG TABLET (FP) PO SCH ×2 (11:56→22:06)
--- NOTE | 2018-01-05 12:00 | PN ---
Progress Note, Physician History of Present Illness: doing well no issues for dialysis - Current Medication List Current Medications: Active Medications Albuterol Sulfate (Ventolin 0.083% Nebulizer Soln -) 1 amp NEB RQID [facility] Last Admin: 01/05/18 08:39 Dose: 1 amp Clonidine (Catapres -) 0.3 mg PO TID [facility] Last Admin: 01/05/18 06:35 Dose: 0.3 mg Collagenase (Santyl -) 1 applic TP DAILY [facility]; Protocol Last Admin: 01/04/18 19:03 Dose: Not Given Diphenhydramine HCl (Benadryl Injection -) 50 mg IVPUSH ONCE ONE Stop: 01/05/18 11:22 Epoetin Abiel (Epogen -) 10,000 unit IVPUSH ONCE ONE Stop: 01/05/18 11:21 Gabapentin (Neurontin -) 300 mg PO BID [facility] Last Admin: 01/04/18 22:01 Dose: 300 mg Guaifenesin (Robitussin -) 10 ml PO Q8H PRN PRN Reason: COUGH Heparin Sodium (Porcine) (Heparin -) 5,000 unit SQ BID [facility] Last Admin: 01/04/18 21:55 Dose: Not Given Sodium Chloride (Normal Saline -) 250 mls @ 3,000 mls/hr IV PRN PRN PRN Reason: Hypotension during Dialysis Stop: 01/06/18 11:19 Sodium Chloride (Normal Saline -) 250 mls @ 3,000 mls/hr IV PRN PRN PRN Reason: Hypotension during Dialysis Stop: 01/06/18 11:20 Insulin Aspart (Novolog Vial Sliding Scale -) 1 vial SQ ACHS [facility]; Protocol Last Admin: 01/05/18 06:39 Dose: 4 units Insulin Detemir (Levemir Vial) 13 units SQ BID@0700,2200 [facility] Last Admin: 01/05/18 06:39 Dose: 13 units Labetalol HCl (Normodyne -) 400 mg PO BID [facility] Last Admin: 01/04/18 22:01 Dose: 400 mg Losartan Potassium (Cozaar -) 100 mg PO DAILY [facility] Last Admin: 01/04/18 09:44 Dose: 100 mg Oxycodone HCl (Roxicodone -) 10 mg PO Q8H PRN PRN Reason: PAIN LEVEL 7 - 10 Last Admin: 01/05/18 04:23 Dose: 10 mg - Objective Vital Signs: Vital Signs Temperature 98.2 F 01/05/18 07:03 Pulse Rate 88 01/05/18 07:03 Respiratory Rate 20 01/05/18 07:03 Blood Pressure 158/87 01/05/18 07:03 O2 Sat by Pulse Oximetry (%) 99 01/05/18 09:00 Constitutional: Yes: No Distress, Calm Cardiovascular: Yes: Regular Rate and Rhythm Respiratory: Yes: Regular, CTA Bilaterally Gastrointestinal: Yes: Normal Bowel Sounds, Soft Musculoskeletal: Yes: WNL Extremities: Yes: WNL Wound/Incision: Yes: Dressing Dry and Intact Neurological: Yes: Alert, Oriented Psychiatric: Yes: Alert, Oriented Labs: CBC, BMP 01/03/18 11:30 01/03/18 15:00 Assessment/Plan Acute Hypoxic Respiratory Failure Pneumonia Sepsis Diabetic Ketoacidosis improving ESRD on HD h/o LA Thrombus HTN stable off of abx plan continue current mgmt rest as per the team dialysis improving
[2018-01-05] MEDS: COLLAGENASE CLOSTRIDIUM HIST. 30 GRAMS TUBE TP SCH (12:05)
--- NOTE | 2018-01-05 13:21 | PN ---
Progress Note (short form) - Note Progress Note: Renal follow up for ESRD on HD Pt seen and examined at the bedside no acute complaints no sob, cp, abd pain, N/V/D for dialysis today Vital Signs Temperature 98.2 F 01/05/18 07:03 Pulse Rate 88 01/05/18 07:03 Respiratory Rate 20 01/05/18 07:03 Blood Pressure 158/87 01/05/18 07:03 O2 Sat by Pulse Oximetry (%) 99 01/05/18 09:00 Intake & Output 01/02/18 01/03/18 01/04/18 01/05/18 23:59 23:59 23:59 23:59 Intake Total 1100 150 600 400 Output Total 0 0 Balance 1100 150 600 400 Weight 66.315 kg 67.222 kg Mild SOB, on venti mask Neck supple MMM tachycardic, no M/R Dec BS b/l lung bases soft NT/ND Abd + jose ain LE CBC, BMP 01/03/18 11:30 01/03/18 15:00 Current Medications Albuterol Sulfate (Ventolin 0.083% Nebulizer Soln -) 1 amp NEB RQID [facility] Last Admin: 01/05/18 08:39 Dose: 1 amp Clonidine (Catapres -) 0.3 mg PO TID [facility] Last Admin: 01/05/18 06:35 Dose: 0.3 mg Collagenase (Santyl -) 1 applic TP DAILY [facility]; Protocol Last Admin: 01/05/18 12:05 Dose: 1 applic Epoetin Abiel (Epogen -) 10,000 unit IVPUSH ONCE ONE Stop: 01/05/18 11:21 Gabapentin (Neurontin -) 300 mg PO BID [facility] Last Admin: 01/05/18 11:56 Dose: 300 mg Guaifenesin (Robitussin -) 10 ml PO Q8H PRN PRN Reason: COUGH Heparin Sodium (Porcine) (Heparin -) 5,000 unit SQ BID [facility] Last Admin: 01/05/18 11:56 Dose: Not Given Sodium Chloride (Normal Saline -) 250 mls @ 3,000 mls/hr IV PRN PRN PRN Reason: Hypotension during Dialysis Stop: 01/06/18 11:19 Sodium Chloride (Normal Saline -) 250 mls @ 3,000 mls/hr IV PRN PRN PRN Reason: Hypotension during Dialysis Stop: 01/06/18 11:20 Insulin Aspart (Novolog Vial Sliding Scale -) 1 vial SQ ACHS [facility]; Protocol Last Admin: 01/05/18 12:03 Dose: 3 units Insulin Detemir (Levemir Vial) 13 units SQ BID@0700,2200 [facility] Last Admin: 01/05/18 06:39 Dose: 13 units Labetalol HCl (Normodyne -) 400 mg PO BID [facility] Last Admin: 01/05/18 11:56 Dose: 400 mg Losartan Potassium (Cozaar -) 100 mg PO DAILY [facility] Last Admin: 01/05/18 11:55 Dose: 100 mg Oxycodone HCl (Roxicodone -) 10 mg PO Q8H PRN PRN Reason: PAIN LEVEL 7 - 10 Last Admin: 01/05/18 11:55 Dose: 10 mg 27 year old woman with hx of ESRD on Hd (MWF), DM type 2, Hypertension, Hx fo PE , LE wounds, Chronic volume overload, Diastolic HF presented from home with complaints of SOB and admitted for Sepsis/PNA. #Sepsis secondary to RLL PNA #ESRD on Hd with Hyperkalemia #Metabolic acidosis from renal failure +/- DKA #DM type 1 with uncontrolled blood glucose #Anemia #Hypertension dialysis today with UF as tolerated discharge planning as per primary will give MACIE with Hd for anemia to resume Hd on [facility] schedule as outpatient Nathan Vo DO
--- NOTE | 2018-01-05 14:58 | PN ---
Progress Note, Physician History of Present Illness: PULMONARY ALERT,NO DISTRESS ,-SOB,COUGH - Current Medication List Current Medications: Active Medications Albuterol Sulfate (Ventolin 0.083% Nebulizer Soln -) 1 amp NEB RQID [facility] Last Admin: 01/05/18 08:39 Dose: 1 amp Clonidine (Catapres -) 0.3 mg PO TID [facility] Last Admin: 01/05/18 14:37 Dose: 0.3 mg Collagenase (Santyl -) 1 applic TP DAILY [facility]; Protocol Last Admin: 01/05/18 12:05 Dose: 1 applic Epoetin Abiel (Epogen -) 10,000 unit IVPUSH ONCE ONE Stop: 01/05/18 11:21 Gabapentin (Neurontin -) 300 mg PO BID [facility] Last Admin: 01/05/18 11:56 Dose: 300 mg Guaifenesin (Robitussin -) 10 ml PO Q8H PRN PRN Reason: COUGH Heparin Sodium (Porcine) (Heparin -) 5,000 unit SQ BID [facility] Last Admin: 01/05/18 11:56 Dose: Not Given Sodium Chloride (Normal Saline -) 250 mls @ 3,000 mls/hr IV PRN PRN PRN Reason: Hypotension during Dialysis Stop: 01/06/18 11:19 Sodium Chloride (Normal Saline -) 250 mls @ 3,000 mls/hr IV PRN PRN PRN Reason: Hypotension during Dialysis Stop: 01/06/18 11:20 Insulin Aspart (Novolog Vial Sliding Scale -) 1 vial SQ ACHS [facility]; Protocol Last Admin: 01/05/18 12:03 Dose: 3 units Insulin Detemir (Levemir Vial) 13 units SQ BID@0700,2200 [facility] Last Admin: 01/05/18 06:39 Dose: 13 units Labetalol HCl (Normodyne -) 400 mg PO BID [facility] Last Admin: 01/05/18 11:56 Dose: 400 mg Losartan Potassium (Cozaar -) 100 mg PO DAILY [facility] Last Admin: 01/05/18 11:55 Dose: 100 mg Oxycodone HCl (Roxicodone -) 10 mg PO Q8H PRN PRN Reason: PAIN LEVEL 7 - 10 Last Admin: 01/05/18 11:55 Dose: 10 mg - Objective Vital Signs: Vital Signs Temperature 98.2 F 01/05/18 07:03 Pulse Rate 88 10/03/18 07:03 Respiratory Rate 20 01/05/18 07:03 Blood Pressure 158/87 01/05/18 07:03 O2 Sat by Pulse Oximetry (%) 99 01/05/18 09:00 Constitutional: Yes: Well Nourished, Calm Eyes: Yes: WNL HENT: Yes: WNL Neck: Yes: WNL Cardiovascular: Yes: Regular Rate and Rhythm, S1, S2 Respiratory: Yes: CTA Bilaterally Gastrointestinal: Yes: Normal Bowel Sounds, Soft Extremities: Yes: WNL Edema: Yes Labs: CBC, BMP Problem List - Problems (1) DKA, type 1 Code(s): E10.10 - TYPE 1 DIABETES MELLITUS WITH KETOACIDOSIS WITHOUT COMA Qualifiers: Diabetes mellitus complication detail: without coma Qualified Code(s): E10.10 - Type 1 diabetes mellitus with ketoacidosis without coma (2) Diastolic dysfunction with heart failure Code(s): I50.30 - UNSPECIFIED DIASTOLIC (CONGESTIVE) HEART FAILURE Qualifiers: Heart failure chronicity: acute on chronic Qualified Code(s): I50.33 - Acute on chronic diastolic (congestive) heart failure (3) ESRD (end stage renal disease) on dialysis Code(s): N18.6 - END STAGE RENAL DISEASE; Z99.2 - DEPENDENCE ON RENAL DIALYSIS (5) Hyperglycemia Code(s): R73.9 - HYPERGLYCEMIA, UNSPECIFIED (6) Leg abscess Code(s): L02.419 - CUTANEOUS ABSCESS OF LIMB, UNSPECIFIED (7) Anemia Code(s): D64.9 - ANEMIA, UNSPECIFIED Qualifiers: Folate deficiency anemia type: dietary (8) HTN (hypertension) Code(s): I10 - ESSENTIAL (PRIMARY) HYPERTENSION Qualifiers: Hypertension type: unspecified Qualified Code(s): I10 - Essential (primary ) hypertension (9) Pneumonia Code(s): J18.9 - PNEUMONIA, UNSPECIFIED ORGANISM Qualifiers: Pneumonia type: due to unspecified organism Laterality: bilateral Lung location: lower lobe of lung Qualified Code(s): J18.1 - Lobar pneumonia, unspecified organism (10) Respiratory failure Code(s): J96.90 - RESPIRATORY FAILURE, UNSP, UNSP W HYPOXIA OR HYPERCAPNIA (11) SOB (shortness of breath) Code(s): R06.02 - SHORTNESS OF BREATH Assessment/Plan IMP: S/P Acute Respiratory failure requiring HF NC O2 ESRD on HD (M,W,F LUE AVF) IDDM HTN PVD Atrial thrombus Cardiac Arrest by history Suspected Pneumonia Right Foot ulcer History of Non-compliance Rib Fracture nasal o2 HD Aspiration precautions BD TX Pain control Incentive spirometry D/C planning DR BECERRA
[2018-01-05] MEDS ORDERED: EPOETIN ALFA 10,000 UNIT/1 ML VIAL IVPUSH ONE (15:00)
[2018-01-05 15:56] LABS: ANION GAP 14 MMOL/L (8-16); BLOOD UREA NITROGEN 43 mg/dL (7-18); CALCIUM 8.2 mg/dL (8.5-10.1); CHLORIDE 99 mmol/L (98-107); CO2 23 mmol/L (21-32); CREATININE 4.1 mg/dL (0.55-1.3); GLUCOSE,RANDOM 145 mg/dL (74-106); POTASSIUM 4.2 mmol/L (3.5-5.1); SODIUM 136 mmol/L (136-145)
--- NOTE | 2018-01-05 17:32 | PN ---
Progress Note, Physician History of Present Illness: Denies chest pain or dyspnea, undergoing HD. - Current Medication List Current Medications: Active Medications Albuterol Sulfate (Ventolin 0.083% Nebulizer Soln -) 1 amp NEB RQID [facility] Last Admin: 01/05/18 16:03 Dose: Not Given Clonidine (Catapres -) 0.3 mg PO TID [facility] Last Admin: 01/05/18 14:37 Dose: 0.3 mg Collagenase (Santyl -) 1 applic TP DAILY [facility]; Protocol Last Admin: 01/05/18 12:05 Dose: 1 applic Gabapentin (Neurontin -) 300 mg PO BID [facility] Last Admin: 01/05/18 11:56 Dose: 300 mg Guaifenesin (Robitussin -) 10 ml PO Q8H PRN PRN Reason: COUGH Heparin Sodium (Porcine) (Heparin -) 5,000 unit SQ BID [facility] Last Admin: 01/05/18 11:56 Dose: Not Given Sodium Chloride (Normal Saline -) 250 mls @ 3,000 mls/hr IV PRN PRN PRN Reason: Hypotension during Dialysis Stop: 01/06/18 14:54 Insulin Aspart (Novolog Vial Sliding Scale -) 1 vial SQ ACHS [facility]; Protocol Last Admin: 01/05/18 12:03 Dose: 3 units Insulin Detemir (Levemir Vial) 13 units SQ BID@0700,2200 [facility] Last Admin: 01/05/18 06:39 Dose: 13 units Labetalol HCl (Normodyne -) 400 mg PO BID [facility] Last Admin: 01/05/18 11:56 Dose: 400 mg Losartan Potassium (Cozaar -) 100 mg PO DAILY [facility] Last Admin: 01/05/18 11:55 Dose: 100 mg Oxycodone HCl (Roxicodone -) 10 mg PO Q8H PRN PRN Reason: PAIN LEVEL 7 - 10 Last Admin: 01/05/18 11:55 Dose: 10 mg - Objective Vital Signs: Vital Signs Temperature 98.4 F 01/05/18 14:55 Pulse Rate 87 01/05/18 17:27 Respiratory Rate 18 01/05/18 17:27 Blood Pressure 165/104 H 01/05/18 17:27 O2 Sat by Pulse Oximetry (%) 99 01/05/18 09:00 Constitutional: Yes: No Distress, Calm, Thin Neck: Yes: Supple Cardiovascular: Yes: Regular Rate and Rhythm Respiratory: Yes: Regular, Diminished, On Nasal O2 Gastrointestinal: Yes: Normal Bowel Sounds, Soft Edema: No Labs: CBC, BMP 01/03/18 11:30 01/05/18 15:00 Problem List - Problems (1) Diastolic dysfunction with heart failure Code(s): I50.30 - UNSPECIFIED DIASTOLIC (CONGESTIVE) HEART FAILURE Qualifiers: Heart failure chronicity: acute on chronic Qualified Code(s): I50.33 - Acute on chronic diastolic (congestive) heart failure (2) DKA, type 1 Code(s): E10.10 - TYPE 1 DIABETES MELLITUS WITH KETOACIDOSIS WITHOUT COMA Qualifiers: Diabetes mellitus complication detail: without coma Qualified Code(s): E10.10 - Type 1 diabetes mellitus with ketoacidosis without coma (3) Pneumonia Code(s): J18.9 - PNEUMONIA, UNSPECIFIED ORGANISM Qualifiers: Pneumonia type: due to unspecified organism Laterality: bilateral Lung location: lower lobe of lung Qualified Code(s): J18.1 - Lobar pneumonia, unspecified organism (4) ESRD (end stage renal disease) on dialysis Code(s): N18.6 - END STAGE RENAL DISEASE; Z99.2 - DEPENDENCE ON RENAL DIALYSIS (6) Fluid overload Code(s): E87.70 - FLUID OVERLOAD, UNSPECIFIED Qualifiers: Hypervolemia type: other Qualified Code(s): E87.79 - Other fluid overload (7) Respiratory failure Code(s): J96.90 - RESPIRATORY FAILURE, UNSP, UNSP W HYPOXIA OR HYPERCAPNIA (8) HTN (hypertension) Code(s): I10 - ESSENTIAL (PRIMARY) HYPERTENSION Qualifiers: Hypertension type: unspecified Qualified Code(s): I10 - Essential (primary ) hypertension (9) Anemia Code(s): D64.9 - ANEMIA, UNSPECIFIED Qualifiers: Anemia type: due to chronic kidney disease Chronic kidney disease stage: on chronic dialysis Qualified Code(s): N18.6 - End stage renal disease; D63.1 - Anemia in chronic kidney disease; Z99.2 - Dependence on renal dialysis Assessment/Plan 12/28/2017 Echo: Normal LV size and fxn, mild cLVH, grade I diastolic dysfunction, normal RV size and fxn, normal atrial sizes, mild TR 1. Acute Hypoxic Respiratory Failure - Pneumonia, sepsis 2. Post rapid response 3. Diastolic LV dysfunction with class I NYHA classification LV failure, volume overload 4. History of LA myxoma post resection 5. History of LA thrombus 6. HTN 7. IDDM 8. ESRD on HD (M,W,F LUE AVF) 9. PVD Right Foot ulcer 10. Anemia of CKD PLAN: 1. Complete antibiotic course as per the primary team 2. HD/UF as per renal service 3. Continue on home regimen of Catapres, labetolol 400 bid and losartan 100qd, resume Procardia XL 30 qd 4. Taper FIO2 to maintain SpO2 >90%, BD as needed, DVT prophylaxis
[2018-01-05] MEDS: NIFEdipine E.R. 30 MG TABLET (FP) PO SCH (19:28)
--- NOTE | 2018-01-05 20:34 | PN ---
Progress Note, Physician - Current Medication List Current Medications: Active Medications Albuterol Sulfate (Ventolin 0.083% Nebulizer Soln -) 1 amp NEB RQID [facility] Last Admin: 01/05/18 16:03 Dose: Not Given Clonidine (Catapres -) 0.3 mg PO TID [facility] Last Admin: 01/05/18 14:37 Dose: 0.3 mg Collagenase (Santyl -) 1 applic TP DAILY [facility]; Protocol Last Admin: 01/05/18 12:05 Dose: 1 applic Gabapentin (Neurontin -) 300 mg PO BID [facility] Last Admin: 01/05/18 11:56 Dose: 300 mg Guaifenesin (Robitussin -) 10 ml PO Q8H PRN PRN Reason: COUGH Heparin Sodium (Porcine) (Heparin -) 5,000 unit SQ BID [facility] Last Admin: 01/05/18 11:56 Dose: Not Given Sodium Chloride (Normal Saline -) 250 mls @ 3,000 mls/hr IV PRN PRN PRN Reason: Hypotension during Dialysis Stop: 01/06/18 14:54 Insulin Aspart (Novolog Vial Sliding Scale -) 1 vial SQ ACHS [facility]; Protocol Last Admin: 01/05/18 17:47 Dose: Not Given Insulin Detemir (Levemir Vial) 13 units SQ BID@0700,2200 [facility] Last Admin: 01/05/18 06:39 Dose: 13 units Labetalol HCl (Normodyne -) 400 mg PO BID [facility] Last Admin: 01/05/18 11:56 Dose: 400 mg Losartan Potassium (Cozaar -) 100 mg PO DAILY [facility] Last Admin: 01/05/18 11:55 Dose: 100 mg Nifedipine (Procardia Xl -) 30 mg PO DAILY [facility] Last Admin: 01/05/18 19:28 Dose: Not Given Oxycodone HCl (Roxicodone -) 10 mg PO Q8H PRN PRN Reason: PAIN LEVEL 7 - 10 Last Admin: 01/05/18 11:55 Dose: 10 mg - Objective Vital Signs: Vital Signs Temperature 98.4 F 01/05/18 14:55 Pulse Rate 87 01/05/18 18:35 Respiratory Rate 18 01/05/18 18:35 Blood Pressure 127/69 01/05/18 18:35 O2 Sat by Pulse Oximetry (%) 99 01/05/18 09:00 Labs: CBC, BMP 01/03/18 11:30 01/05/18 15:00
[2018-01-06] MEDS: oxyCODONE HCL 5 MG TABLET PO PRN ×2 (04:30→12:43)
[2018-01-06] MEDS: cloNIDine HCL 0.1 MG TABLET PO SCH ×2 (06:39→15:41)
[2018-01-06] MEDS: INSULIN (LEVEMIR) 100 UNITS/ML UNITS SQ SCH (06:40)
[2018-01-06] MEDS: INSULIN SLIDING SCALE (NOVOLOG) 1 VIAL SQ SCH ×3 (06:40→17:38)
[2018-01-06] MEDS: ALBUTEROL SO4 0.083% IH SOL 2.5 MG/3 ML VIAL.NEB. NEB SCH (07:35)
--- NOTE | 2018-01-06 10:56 | PN ---
Progress Note (short form) - Note Progress Note: Overall improving. Some chronic musculoskeletal issues. No acute events overnight. Some residual cough. Intake & Output 01/03/18 01/04/18 01/05/18 01/06/18 23:59 23:59 23:59 23:59 Intake Total 150 600 500 450 Output Total 0 Balance 150 600 500 450 Weight 148 lb 3.2 oz Last Vital Signs Temp Pulse Resp BP Pulse Ox 98.2 F 89 20 141/87 99 01/06/18 06:35 01/06/18 06:35 01/06/18 06:35 01/06/18 06:35 01/05/18 21:00 Active Medications Albuterol Sulfate (Ventolin 0.083% Nebulizer Soln -) 1 amp NEB RQID [facility] Last Admin: 01/06/18 07:35 Dose: 1 amp Clonidine (Catapres -) 0.3 mg PO TID [facility] Last Admin: 01/06/18 06:39 Dose: 0.3 mg Collagenase (Santyl -) 1 applic TP DAILY [facility]; Protocol Last Admin: 01/05/18 12:05 Dose: 1 applic Gabapentin (Neurontin -) 300 mg PO BID [facility] Last Admin: 01/05/18 22:06 Dose: 300 mg Guaifenesin (Robitussin -) 10 ml PO Q8H PRN PRN Reason: COUGH Heparin Sodium (Porcine) (Heparin -) 5,000 unit SQ BID [facility] Last Admin: 01/05/18 22:06 Dose: Not Given Sodium Chloride (Normal Saline -) 250 mls @ 3,000 mls/hr IV PRN PRN PRN Reason: Hypotension during Dialysis Stop: 01/06/18 14:54 Insulin Aspart (Novolog Vial Sliding Scale -) 1 vial SQ ACHS [facility]; Protocol Last Admin: 01/06/18 06:40 Dose: 3 units Insulin Detemir (Levemir Vial) 13 units SQ BID@0700,2200 [facility] Last Admin: 01/06/18 06:40 Dose: 13 units Labetalol HCl (Normodyne -) 400 mg PO BID [facility] Last Admin: 01/05/18 22:06 Dose: 400 mg Losartan Potassium (Cozaar -) 100 mg PO DAILY [facility] Last Admin: 01/05/18 11:55 Dose: 100 mg Nifedipine (Procardia Xl -) 30 mg PO DAILY [facility] Last Admin: 01/05/18 19:28 Dose: Not Given Oxycodone HCl (Roxicodone -) 10 mg PO Q8H PRN PRN Reason: PAIN LEVEL 7 - 10 Last Admin: 01/06/18 04:30 Dose: 10 mg GENERAL: Awake, alert, and oriented. NAD HEAD: Normal with no signs of trauma. EYES: Puffy eyes, pallor +, no icterus. EARS, NOSE, THROAT: Ears normal. Moist mucous membranes. NECK: Supple. LUNGS: bibasilar rhonchi Right > Left. No wheezes. HEART: Tachycardic, Regular rate and rhythm, normal S1 and S2 with systolic murmur. ABDOMEN: Soft, nontender,no organomegaly. MUSCULOSKELETAL: Normal range of motion at all joints. No bony deformities or tenderness. No CVA tenderness. UPPER EXTREMITIES: LUE AVF functioning, 2+ pulses, warm. LOWER EXTREMITIES: Edematous with multiple areas of dressed wounds. NEUROLOGICAL: Non-focal. PSYCHIATRIC: Cooperative. SKIN: Warm, multiple wounds/ulcers. Laboratory Results - last 24 hr 01/05/18 01/05/18 01/05/18 11:59 15:00 20:43 Sodium 136 Potassium 4.2 Chloride 99 Carbon Dioxide 23 Anion Gap 14 BUN 43 H Creatinine 4.1 H Creat Clearance w eGFR 12.96 POC Glucometer 171 247 Random Glucose 145 H Calcium 8.2 L 01/06/18 06:39 Sodium Potassium Chloride Carbon Dioxide Anion Gap BUN Creatinine Creat Clearance w eGFR POC Glucometer 178 Random Glucose Calcium IMP: Acute Respiratory failure requiring HF NC O2 ESRD on HD (M,W,F LUE AVF) IDDM HTN PVD Atrial thrombus Cardiac Arrest by history Suspected Pneumonia Right Foot ulcer History of Non-compliance Rib Fracture Do not suspect ARDS at this time Hyperglycemia: do not suspect DKA Patient has home O2 Aspiration precautions Currently off ABX per ID BD TX Pain control Incentive spirometry OK for D/C home Dr Ballesteros
[2018-01-06] MEDS ORDERED: PT OWN MED DRAWER 7, Y5N ONE (11:09)
[2018-01-06] MEDS: HEPARIN NA (PORCINE) 5,000 UNITS/ML 1ML VIAL SQ SCH (11:18)
[2018-01-06] MEDS: LOSARTAN POTASSIUM 50 MG TABLET (FP) PO SCH (11:18)
[2018-01-06] MEDS: GABAPENTIN 300 MG CAPSULE (FP) PO SCH (11:18)
[2018-01-06] MEDS: LABETALOL HCL 200 MG TABLET (FP) PO SCH (11:18)
[2018-01-06] MEDS: NIFEdipine E.R. 30 MG TABLET (FP) PO SCH (11:18)
--- NOTE | 2018-01-06 12:00 | DS ---
Physical Examination Vital Signs: Vital Signs Temperature 98.2 F 01/06/18 06:35 Pulse Rate 89 01/06/18 06:35 Respiratory Rate 20 01/06/18 06:35 Blood Pressure 141/87 01/06/18 06:35 O2 Sat by Pulse Oximetry (%) 99 01/05/18 21:00 Constitutional: Yes: No Distress HENT: Yes: Atraumatic Neck: Yes: Supple Cardiovascular: Yes: Regular Rate and Rhythm Respiratory: Yes: CTA Bilaterally Gastrointestinal: Yes: Normal Bowel Sounds Extremities: Yes: Other (wound rlex/feet...healing) Edema: Yes Edema: LLE: 2+, RLE: 3+ Neurological: Yes: Alert, Oriented Labs: CBC, BMP 01/03/18 11:30 01/05/18 15:00 Discharge Summary Reason For Visit: ESRD/PNEUMONIA/TACHYCARDIA Current Active Problems DKA, type 1 (Acute) Diastolic dysfunction with heart failure (Acute) Fracture of ribs, multiple, closed (Acute) Pneumonia (Acute) Ulcer of right leg (Acute) ESRD (end stage renal disease) on dialysis (Chronic) Condition: Stable - Instructions Diet, Activity, Other Instructions: resume HD as out patient see your pmd 2-3 days Referrals: Monique Reyes MD [Primary Care Provider] - Nathan Vo MD [Staff Physician] - - Home Medications Comprehensive Discharge Medication List: Ambulatory Orders cloNIDine HCL [Catapres -] 0.3 mg PO TID 06/28/17 Collagenase Clostridium Hist. [Santyl -] 1 applic TP DAILY #1 tube 10/01/17 Insulin Detemir [Levemir Flextouch] 17 unit SQ BID #1 insuln.pen 10/01/17 Insulin Lispro [Humalog Kwikpen U-100] 100 unit SQ ASDIR #10 insuln.pen oxyCODONE HCL [Roxicodone -] 10 mg PO Q6H PRN #20 tablet MDD 4 10/29/17 Oxycodone HCl 10 mg PO Q6H PRN #15 tablet MDD 4 11/12/17 Nebulizer Accessories [A.i.r.s. Nebulizer] 1 each MC PRN #1 kit 12/02/17 Insulin (Levemir) [Levemir Vial] 22 units SQ BIDI units 12/13/17 Insulin Sliding Scale [Novolog Vial Sliding Scale -] 1 vial SQ ACHS units 12/13 Labetalol HCl [Normodyne -] 400 mg PO BID tablet 12/13/17 Losartan Potassium [Cozaar -] 100 mg PO DAILY tablet 12/13/17 Albuterol 0.083% Nebulizer No [Ventolin 0.083% Nebulizer Soln -] 1 amp NEB Q6H #10 amp 01/06/18 Gabapentin [Neurontin -] 300 mg PO BID #60 capsule 01/06/18 Miscellaneous Medical Supply [Outpatient Order] 1 each ASDIR #1 misc oxyCODONE HCL [Roxicodone -] 10 mg PO Q8H PRN #20 tablet MDD 3 01/06/18 [facility]
[2018-01-06] MEDS ORDERED: INSULIN (LEVEMIR) 100 UNITS/ML UNITS SQ ONE (12:19)
[2018-01-06] MEDS ORDERED: INSULIN (NOVOLOG) ASPART 100 UNITS/ML 10ML VIAL ONE (12:19)
--- NOTE | 2018-01-06 12:48 | PN ---
Progress Note, Physician History of Present Illness: Denies chest pain or dyspnea. BP control improved. - Current Medication List Current Medications: Active Medications Clonidine (Catapres -) 0.3 mg PO TID [facility] Last Admin: 01/06/18 06:39 Dose: 0.3 mg Collagenase (Santyl -) 1 applic TP DAILY [facility]; Protocol Last Admin: 01/05/18 12:05 Dose: 1 applic Gabapentin (Neurontin -) 300 mg PO BID [facility] Last Admin: 01/06/18 11:18 Dose: 300 mg Guaifenesin (Robitussin -) 10 ml PO Q8H PRN PRN Reason: COUGH Heparin Sodium (Porcine) (Heparin -) 5,000 unit SQ BID [facility] Last Admin: 01/06/18 11:18 Dose: Not Given Sodium Chloride (Normal Saline -) 250 mls @ 3,000 mls/hr IV PRN PRN PRN Reason: Hypotension during Dialysis Stop: 01/06/18 14:54 Insulin Aspart (Novolog Vial Sliding Scale -) 1 vial SQ ACHS [facility]; Protocol Last Admin: 01/06/18 12:15 Dose: 3 units Insulin Detemir (Levemir Vial) 13 units SQ BID@0700,2200 [facility] Last Admin: 01/06/18 06:40 Dose: 13 units Labetalol HCl (Normodyne -) 400 mg PO BID [facility] Last Admin: 01/06/18 11:18 Dose: 400 mg Losartan Potassium (Cozaar -) 100 mg PO DAILY [facility] Last Admin: 01/06/18 11:18 Dose: 100 mg Nifedipine (Procardia Xl -) 30 mg PO DAILY [facility] Last Admin: 01/06/18 11:18 Dose: 30 mg Oxycodone HCl (Roxicodone -) 10 mg PO Q8H PRN PRN Reason: PAIN LEVEL 7 - 10 Last Admin: 01/06/18 12:43 Dose: 10 mg - Objective Vital Signs: Vital Signs Temperature 98.2 F 01/06/18 06:35 Pulse Rate 89 01/06/18 06:35 Respiratory Rate 20 01/06/18 06:35 Blood Pressure 141/87 01/06/18 06:35 O2 Sat by Pulse Oximetry (%) 99 01/05/18 21:00 Constitutional: Yes: No Distress, Calm, Thin Neck: Yes: Supple Cardiovascular: Yes: Regular Rate and Rhythm Respiratory: Yes: Regular, Diminished Gastrointestinal: Yes: Normal Bowel Sounds, Soft Edema: Yes Edema: LLE: 1+, RLE: 1+ Labs: CBC, BMP 01/03/18 11:30 01/05/18 15:00 Problem List - Problems (1) Diastolic dysfunction with heart failure Code(s): I50.30 - UNSPECIFIED DIASTOLIC (CONGESTIVE) HEART FAILURE Qualifiers: Heart failure chronicity: acute on chronic Qualified Code(s): I50.33 - Acute on chronic diastolic (congestive) heart failure (2) DKA, type 1 Code(s): E10.10 - TYPE 1 DIABETES MELLITUS WITH KETOACIDOSIS WITHOUT COMA Qualifiers: Diabetes mellitus complication detail: without coma Qualified Code(s): E10.10 - Type 1 diabetes mellitus with ketoacidosis without coma (3) Pneumonia Code(s): J18.9 - PNEUMONIA, UNSPECIFIED ORGANISM Qualifiers: Pneumonia type: due to unspecified organism Laterality: bilateral Lung location: lower lobe of lung Qualified Code(s): J18.1 - Lobar pneumonia, unspecified organism (4) ESRD (end stage renal disease) on dialysis Code(s): N18.6 - END STAGE RENAL DISEASE; Z99.2 - DEPENDENCE ON RENAL DIALYSIS (6) Fluid overload Code(s): E87.70 - FLUID OVERLOAD, UNSPECIFIED Qualifiers: Hypervolemia type: other Qualified Code(s): E87.79 - Other fluid overload (7) Respiratory failure Code(s): J96.90 - RESPIRATORY FAILURE, UNSP, UNSP W HYPOXIA OR HYPERCAPNIA (8) HTN (hypertension) Code(s): I10 - ESSENTIAL (PRIMARY) HYPERTENSION Qualifiers: Hypertension type: unspecified Qualified Code(s): I10 - Essential (primary ) hypertension (9) Anemia Code(s): D64.9 - ANEMIA, UNSPECIFIED Qualifiers: Anemia type: due to chronic kidney disease Chronic kidney disease stage: on chronic dialysis Qualified Code(s): N18.6 - End stage renal disease; D63.1 - Anemia in chronic kidney disease; Z99.2 - Dependence on renal dialysis Assessment/Plan 12/28/2017 Echo: Normal LV size and fxn, mild cLVH, grade I diastolic dysfunction, normal RV size and fxn, normal atrial sizes, mild TR 1. Post Acute Hypoxic Respiratory Failure - Pneumonia, sepsis 2. Post rapid response 3. Diastolic LV dysfunction with class I NYHA classification LV failure, volume overload 4. History of LA myxoma post resection 5. History of LA thrombus 6. HTN 7. IDDM 8. ESRD on HD (M,W,F LUE AVF) 9. PVD Right Foot ulcer 10. Anemia of CKD PLAN: 1. Completed antibiotic course as per the primary team 2. HD/UF as per renal service 3. Continue on home regimen of Catapres, labetolol 400 bid and losartan 100qd, Procardia XL 30 qd 4. Taper FIO2 to maintain SpO2 >90%, BD as needed, DVT prophylaxis 5. d/c planning
--- NOTE | 2018-01-06 13:37 | PN ---
Progress Note, Physician History of Present Illness: stable no new issues - Current Medication List Current Medications: Active Medications Clonidine (Catapres -) 0.3 mg PO TID [facility] Last Admin: 01/06/18 06:39 Dose: 0.3 mg Collagenase (Santyl -) 1 applic TP DAILY [facility]; Protocol Last Admin: 01/05/18 12:05 Dose: 1 applic Gabapentin (Neurontin -) 300 mg PO BID [facility] Last Admin: 01/06/18 11:18 Dose: 300 mg Guaifenesin (Robitussin -) 10 ml PO Q8H PRN PRN Reason: COUGH Heparin Sodium (Porcine) (Heparin -) 5,000 unit SQ BID [facility] Last Admin: 01/06/18 11:18 Dose: Not Given Sodium Chloride (Normal Saline -) 250 mls @ 3,000 mls/hr IV PRN PRN PRN Reason: Hypotension during Dialysis Stop: 01/06/18 14:54 Insulin Aspart (Novolog Vial Sliding Scale -) 1 vial SQ ACHS [facility]; Protocol Last Admin: 01/06/18 12:15 Dose: 3 units Insulin Detemir (Levemir Vial) 13 units SQ BID@0700,2200 [facility] Last Admin: 01/06/18 06:40 Dose: 13 units Labetalol HCl (Normodyne -) 400 mg PO BID [facility] Last Admin: 01/06/18 11:18 Dose: 400 mg Losartan Potassium (Cozaar -) 100 mg PO DAILY [facility] Last Admin: 01/06/18 11:18 Dose: 100 mg Nifedipine (Procardia Xl -) 30 mg PO DAILY [facility] Last Admin: 01/06/18 11:18 Dose: 30 mg Oxycodone HCl (Roxicodone -) 10 mg PO Q8H PRN PRN Reason: PAIN LEVEL 7 - 10 Last Admin: 01/06/18 12:43 Dose: 10 mg - Objective Vital Signs: Vital Signs Temperature 98.6 F 01/06/18 10:00 Pulse Rate 89 01/06/18 10:00 Respiratory Rate 20 01/06/18 10:00 Blood Pressure 146/87 01/06/18 10:00 O2 Sat by Pulse Oximetry (%) 99 01/05/18 21:00 Constitutional: Yes: No Distress, Calm Cardiovascular: Yes: Regular Rate and Rhythm Respiratory: Yes: Regular, On Nasal O2 Gastrointestinal: Yes: Normal Bowel Sounds Musculoskeletal: Yes: WNL Extremities: Yes: Other Neurological: Yes: Alert, Oriented Psychiatric: Yes: Alert, Oriented Labs: CBC, BMP 01/03/18 11:30 01/05/18 15:00 Assessment/Plan Acute Hypoxic Respiratory Failure Pneumonia Sepsis Diabetic Ketoacidosis improving ESRD on HD h/o LA Thrombus HTN stable off of abx plan continue current mgmt rest as per the team dialysis improving
--- NOTE | 2018-01-06 14:49 | PN ---
Progress Note (short form) - Note Progress Note: Renal follow up for ESRD on HD s/p dialysis yesterday with 4kg UF for discharge today no overnight events Vital Signs Temperature 98.6 F 01/06/18 10:00 Pulse Rate 89 01/06/18 10:00 Respiratory Rate 20 01/06/18 10:00 Blood Pressure 146/87 01/06/18 10:00 O2 Sat by Pulse Oximetry (%) 99 01/05/18 21:00 Intake & Output 01/03/18 01/04/18 01/05/18 01/06/18 23:59 23:59 23:59 23:59 Intake Total 150 600 500 950 Output Total 0 Balance 150 600 500 950 Weight 67.222 kg NAD + LE edema CBC, BMP 01/03/18 11:30 01/05/18 15:00 Clonidine (Catapres -) 0.3 mg PO TID [facility] Last Admin: 01/06/18 06:39 Dose: 0.3 mg Collagenase (Santyl -) 1 applic TP DAILY [facility]; Protocol Last Admin: 01/05/18 12:05 Dose: 1 applic Gabapentin (Neurontin -) 300 mg PO BID [facility] Last Admin: 01/06/18 11:18 Dose: 300 mg Guaifenesin (Robitussin -) 10 ml PO Q8H PRN PRN Reason: COUGH Heparin Sodium (Porcine) (Heparin -) 5,000 unit SQ BID [facility] Last Admin: 01/06/18 11:18 Dose: Not Given Sodium Chloride (Normal Saline -) 250 mls @ 3,000 mls/hr IV PRN PRN PRN Reason: Hypotension during Dialysis Stop: 01/06/18 14:54 Insulin Aspart (Novolog Vial Sliding Scale -) 1 vial SQ ACHS [facility]; Protocol Last Admin: 01/06/18 12:15 Dose: 3 units Insulin Detemir (Levemir Vial) 13 units SQ BID@0700,2200 [facility] Last Admin: 01/06/18 06:40 Dose: 13 units Labetalol HCl (Normodyne -) 400 mg PO BID [facility] Last Admin: 01/06/18 11:18 Dose: 400 mg Losartan Potassium (Cozaar -) 100 mg PO DAILY [facility] Last Admin: 01/06/18 11:18 Dose: 100 mg Nifedipine (Procardia Xl -) 30 mg PO DAILY [facility] Last Admin: 01/06/18 11:18 Dose: 30 mg Oxycodone HCl (Roxicodone -) 10 mg PO Q8H PRN PRN Reason: PAIN LEVEL 7 - 10 Last Admin: 01/06/18 12:43 Dose: 10 mg 27 year old woman with hx of ESRD on Hd (MWF), DM type 2, Hypertension, Hx fo PE , LE wounds, Chronic volume overload, Diastolic HF presented from home with complaints of SOB and admitted for Sepsis/PNA. 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
[2018-01-06] MEDS: COLLAGENASE CLOSTRIDIUM HIST. 30 GRAMS TUBE TP SCH (15:42)
[2018-01-06 16:00] VITALS: TEMP 98.1
[2018-01-06 17:15] VITALS: BP 134/79; PULSE 90
--- NOTE | 2018-01-11 12:15 | CON.ID ---
Consult Consult Specialty:: infectious diseases Reason for Consultation:: fever pneumonia - History of Present Illness Chief Complaint: sob weakness History of Present Illness: 27 y/o female presenting to [facility] ER via ambulance from home complaining of chills and shortness of breath starting this morning. Fitness Services Manager reports pt has received 2x albuterol and 1x combi nebs. Pts SPO2 was found to be 80% on room air with diffuse wheezing, which improved after treatment. Pt was placed on 3LPM of oxygen via nasal cannula, and SPO2 improved to >94%. Pt states she, feels bad. Mother reports pt has been coughing infrequently over the weekend. Pt was discharged from [facility] on Wednesday (12/24/2017) after she was transferred from this facility the day prior with concern for multiple right sided rib fractures in setting of pts comorbidities. She reports her pain , which is worse with deep inspiration, has been poorly controlled over the weekend. - History Source History Provided By: Patient Limitations to Obtaining History: No Limitations - Past Medical History Cardio/Vascular: Yes: CHF, Deep Vein Thrombosis, HTN, Other (thrombus in atrium , PE, DVT) Pulmonary: No: Sleep Apnea Renal/: Yes: Renal Failure, Hemodialysis ...LMP: 05/13/17 ...LMP Comment: pt states she has not having period for years Infectious Disease: Yes: MRSA, Other Endocrine: Yes: Diabetes Mellitus (type 1 on insulin pump) Additional Medical History: DVT, PE on coumadin - Past Surgical History Past Surgical History: Yes: AV Fistula/Graft (Right arm) - Alcohol/Substance Use Hx Alcohol Use: No History of Substance Use: reports: None - Smoking History Smoking history: Never smoked Have you smoked in the past 12 months: No Aproximately how many cigarettes per day: 10 If you are a former smoker, when did you quit?: couple months ago - Social History Usual Living Arrangement: With Parent ADL: Independent Occupation: unemployed History of Recent Travel: No Home Medications - Allergies Allergies/Adverse Reactions: Allergies Allergy/AdvReac Type Severity Reaction Status Date / Time lactose AdvReac Verified 01/12/18 07:37 - Home Medications Home Medications: Ambulatory Orders cloNIDine HCL [Catapres -] 0.3 mg PO TID 06/28/17 Insulin Lispro [Humalog Kwikpen U-100] 100 unit SQ ASDIR #10 insuln.pen Nebulizer Accessories [A.i.r.s. Nebulizer] 1 each MC PRN #1 kit 12/02/17 Insulin Sliding Scale [Novolog Vial Sliding Scale -] 1 vial SQ ACHS units 12/13 Labetalol HCl [Normodyne -] 400 mg PO BID tablet 12/13/17 Losartan Potassium [Cozaar -] 100 mg PO DAILY tablet 12/13/17 Albuterol 0.083% Nebulizer No [Ventolin 0.083% Nebulizer Soln -] 1 amp NEB Q6H #10 amp 01/06/18 Collagenase Clostridium Hist. [Santyl -] 1 applic TP DAILY tube 01/06/18 Gabapentin [Neurontin -] 300 mg PO BID #60 capsule 01/06/18 Insulin (Levemir) [Levemir Vial] 13 units SQ BID@0700,2200 #0 units 01/06/18 Nifedipine ER [Procardia XL -] 30 mg PO DAILY tab.[id number] 01/06/18 oxyCODONE HCL [Roxicodone -] 10 mg PO Q8H PRN #20 tablet MDD 3 01/06/18 Lidocaine 5% Patch [Lidoderm Patch -] 1 patch TP DAILY #7 patch 01/12/18 Family Disease History - Family Disease History Family Disease History: Diabetes: Grandparent (HTN), Heart Disease: Grandparent , Other: Father (unknown), Mother (HTN) Review of Systems - Review of Systems Constitutional: reports: Weakness Eyes: reports: No Symptoms HENT: reports: No Symptoms Neck: reports: No Symptoms Cardiovascular: reports: No Symptoms Respiratory: reports: Cough, SOB, SOB on Exertion Gastrointestinal: reports: No Symptoms Genitourinary: reports: No Symptoms Musculoskeletal: reports: No Symptoms Integumentary: reports: No Symptoms Neurological: reports: No Symptoms Endocrine: reports: No Symptoms Hematology/Lymphatic: reports: No Symptoms Psychiatric: reports: No Symptoms Physical Exam Vital Signs: Vital Signs Temperature 98.1 F 01/06/18 17:15 Pulse Rate 90 01/06/18 17:15 Respiratory Rate 20 01/06/18 17:15 Blood Pressure 134/79 01/06/18 17:15 O2 Sat by Pulse Oximetry (%) 94 L 01/06/18 09:00 Constitutional: Yes: No Distress, Calm, Thin Eyes: Yes: Conjunctiva Clear Neck: Yes: Supple, Trachea Midline Cardiovascular: Yes: Regular Rate and Rhythm Respiratory: Yes: Poor Air Entry, Rhonchi Gastrointestinal: Yes: Normal Bowel Sounds, Soft Musculoskeletal: Yes: WNL Extremities: Yes: Other Neurological: Yes: Alert, Oriented Psychiatric: Yes: Alert, Oriented Labs: CBC, BMP 01/03/18 11:30 01/05/18 15:00 Imaging - Results Chest X-ray: Report Reviewed, Image Reviewed Assessment/Plan Acute Hypoxic Respiratory Failure Pneumonia Sepsis Diabetic Ketoacidosis improving ESRD on HD h/o LA Thrombus HTN plan will start on broad spectrum abx close watch on resp status patient prognosis to be monitored dialysis resp support rest as per icu cc 45 min
[2018-01-27 18:01] LABS: HBSAG SCREEN Negative
[2018-01-27 18:02] LABS: HEP B CORE AB, TOT Negative
== END 2018-01-06 18:58 | disposition home or self-care (01) | DRG 871 ==
LOC: JER 12:17 → JERBED 16:29 → JICU 21:33 → J8W 01-01 17:52
PROVIDERS: ADMIT Internal Medicine; ATTEND Internal Medicine
PROC: 5A1D70Z Performance of Urinary Filtration, Intermittent, Less than 6 Hours Per Day (ICD-10-PCS; principal; 2017-12-27)
PROC: 3E0F7GC Introduction of Other Therapeutic Substance into Respiratory Tract, Via Natural or Artificial Opening (ICD-10-PCS; 2017-12-27)
PROC: 0H9KXZX Drainage of Right Lower Leg Skin, External Approach, Diagnostic (ICD-10-PCS; 2017-12-27)
PROC: 5A1D70Z Performance of Urinary Filtration, Intermittent, Less than 6 Hours Per Day (ICD-10-PCS; 2018-01-01)
PROC: 30233N1 Transfusion of Nonautologous Red Blood Cells into Peripheral Vein, Percutaneous Approach (ICD-10-PCS; 2018-01-01)
DX: A41.9 Sepsis, unspecified organism (principal); E10.10 Type 1 diabetes mellitus with ketoacidosis without coma; J96.01 Acute respiratory failure with hypoxia; J18.9 Pneumonia, unspecified organism; N18.6 End stage renal disease; L03.115 Cellulitis of right lower limb; I13.2 Hypertensive heart and chronic kidney disease with heart failure and with stage 5 chronic kidney disease, or end stage renal disease; I50.32 Chronic diastolic (congestive) heart failure; E10.22 Type 1 diabetes mellitus with diabetic chronic kidney disease; Z79.4 Long term (current) use of insulin; Z99.2 Dependence on renal dialysis; I73.9 Peripheral vascular disease, unspecified; R56.9 Unspecified convulsions; Z86.74 Personal history of sudden cardiac arrest; I44.0 Atrioventricular block, first degree; E87.8 Other disorders of electrolyte and fluid balance, not elsewhere classified; L97.519 Non-pressure chronic ulcer of other part of right foot with unspecified severity; I95.9 Hypotension, unspecified; D49.2 Neoplasm of unspecified behavior of bone, soft tissue, and skin; Z86.711 Personal history of pulmonary embolism; S22.41XD Multiple fractures of ribs, right side, subsequent encounter for fracture with routine healing; X58.XXXD Exposure to other specified factors, subsequent encounter; R00.0 Tachycardia, unspecified; D63.1 Anemia in chronic kidney disease; Z91.14 Patient's other noncompliance with medication regimen; E86.0 Dehydration
CPT/HCPCS: 36415; 36430; 71045-TC-FY; 80048; 80053; 82565; 82962; 83605; 83735; 84100; 84520; 85025; 85027; 86704; 86706; 86708; 86803; 86850; 86900; 86901; 86922; 87040; 87324; 87340; 87449; 90688; 93005; 93010; 93306-TC; 94010; 94640; 94660; 99284-25; G0008; G0480; J0131; J0735; J0885; J1644; J7030; P9038; P9047; P9058

== ENCOUNTER 2018-01-12 06:29 | Emergency (ER) | payer OTHER ==
[2018-01-12 07:37] VITALS: BMI 22.6
[2018-01-12] MEDS ORDERED: ACETAMINOPHEN 325 MG TABLET (FP) PO ONE (07:52)
[2018-01-12] MEDS ORDERED: ACETAMINOPHEN 1000 MG/100 ML VIAL (NON FORMULARY) IVPB ONE (08:02)
--- NOTE | 2018-01-12 08:02 | PDOC ---
History of Present Illness - General Chief Complaint: Pain Stated Complaint: BACK PAIN Time Seen by Provider: 01/12/18 07:26 History Source: Patient - History of Present Illness Occurred: reports: last week Severity: reports: severe Pain Location: reports: back Past History - Past Medical History Allergies/Adverse Reactions: Allergies Allergy/AdvReac Type Severity Reaction Status Date / Time lactose AdvReac Verified 01/12/18 07:37 Home Medications: Ambulatory Orders cloNIDine HCL [Catapres -] 0.3 mg PO TID 06/28/17 Insulin Lispro [Humalog Kwikpen U-100] 100 unit SQ ASDIR #10 insuln.pen Nebulizer Accessories [A.i.r.s. Nebulizer] 1 each MC PRN #1 kit 12/02/17 Insulin Sliding Scale [Novolog Vial Sliding Scale -] 1 vial SQ ACHS units 12/13 Labetalol HCl [Normodyne -] 400 mg PO BID tablet 12/13/17 Losartan Potassium [Cozaar -] 100 mg PO DAILY tablet 12/13/17 Albuterol 0.083% Nebulizer No [Ventolin 0.083% Nebulizer Soln -] 1 amp NEB Q6H #10 amp 01/06/18 Collagenase Clostridium Hist. [Santyl -] 1 applic TP DAILY tube 01/06/18 Gabapentin [Neurontin -] 300 mg PO BID #60 capsule 01/06/18 Insulin (Levemir) [Levemir Vial] 13 units SQ BID@0700,2200 #0 units 01/06/18 Nifedipine ER [Procardia XL -] 30 mg PO DAILY tab.er.24 01/06/18 oxyCODONE HCL [Roxicodone -] 10 mg PO Q8H PRN #20 tablet MDD 3 01/06/18 Anemia: Yes Asthma: Yes Cancer: No Cardiac Disorders: Yes (cardiac arrest twice) CVA: No COPD: No (O2 3l nc dependent.) CHF: No DVT: No Dementia: No Diabetes: Yes (15 yrs Insulin dependent) Dialysis: Yes (-W-) Disorders: Yes (esrd) HTN: Yes Hypercholesterolemia: No Kidney Stones: (ESRD, Dialysis Mon, W, F, Left arm Fistula) Liver Disease: No Seizures: Yes (Several yrs ago, no medication) Thyroid Disease: No - Surgical History Abdominal Surgery: No Appendectomy: No Cardiac Surgery: Yes (myxoma removed 2014) Cholecystectomy: Yes Lung Surgery: No Neurologic Surgery: No Orthopedic Surgery: Yes (foot sx x2) - Immunization History Td Vaccination: No TDAP Vaccination: No Immunization Up to Date: Yes - Suicide/Smoking/Psychosocial Hx Smoking Status: No Smoking History: Never smoked Have you smoked in the past 12 months: No Number of Cigarettes Smoked Daily: 10 If you are a former smoker, when did you quit?: couple months ago Hx Alcohol Use: No Drug/Substance Use Hx: No Substance Use Type: None Hx Substance Use Treatment: No Trauma Specific PMHX - Complaint Specific PMHX Arthritis: No Review of Systems - Review of Systems Constitutional: No: Fever Respiratory: No: Cough, Shortness of Breath Cardiac (ROS): No: Chest Pain, Lightheadedness, Palpitations ABD/GI: No: Nausea, Vomiting Musculoskeletal: Yes: Back Pain *Physical Exam - Vital Signs Last Vital Signs Temp Pulse Resp BP Pulse Ox 98.3 F 95 H 20 148/83 98 01/12/18 07:31 01/12/18 07:31 01/12/18 07:31 01/12/18 07:31 01/12/18 07:31 - Physical Exam General Appearance: Yes: Appropriately Dressed. No: Apparent Distress HEENT: positive: Normal Voice Neck: positive: Supple Respiratory/Chest: positive: Lungs Clear, Normal Breath Sounds. negative: Respiratory Distress Cardiovascular: positive: Regular Rate, S1, S2 Gastrointestinal/Abdominal: positive: Soft. negative: Tender Musculoskeletal: positive: Vertebral Tenderness (to L mid back) Extremity: positive: Normal Inspection Integumentary: positive: Dry, Warm Neurologic: positive: Fully Oriented, Alert, Normal Mood/Affect ED Treatment Course - RADIOLOGY Radiology Studies Ordered: Category Date Time Status CXRPORT [CHEST X-RAY PORTABLE*] [RAD] Stat Radiology 01/12/18 07:54 Ordered RIBS BILATERAL [RAD] Stat Radiology 01/12/18 07:52 Ordered Medical Decision Making - Medical Decision Making 01/12/18 07:59 27-year-old female, history of seizures, type 1 diabetes, end-stage renal disease on hemodialysis Wednesday, Wednesdays and Fridays, and anuric, anemia, hypertension, PE, not on AC, presents with left upper back pain. Patient was admitted recently for R sided pneumonia and states while she was in the hospital , she developed left upper back pain that has been getting worse. Patient attributes pain to sleeping on hard blankets while admitted. Unable to describe , constant, 8/10, worse w/ movement and deep inspiration, otherwise no shortness of breath, chest pain, palpitations, cough, f/c. Has not taken anything for pain. Pt concerned that she might have a rib fracture as she states her bones are brittle and break easily. Of note, patient was seen approximately 1 month ago for multiple rib fractures on the right side only after leaning over on the rail See exam Left upper back pain No obvious trauma No resp sxs or CP Possible MSK given reproducible factor, unlikely PE -will get rib series and CXR given hx -pain control -reasssess 01/12/18 08:09 01/12/18 11:38 Chest x-ray and rib series unremarkable. Patient improved with meds. DC to take Tylenol as needed for pain and follow-up with her doctor. Has appt for HD today at 2:30pm 01/12/18 11:40 *DC/Admit/Observation/Transfer Diagnosis at time of Disposition: Back pain Qualifiers: Back pain location: thoracic back pain Chronicity: acute Back pain laterality: left Qualified Code(s): M54.6 - Pain in thoracic spine - Discharge Dispostion Disposition: HOME Condition at time of disposition: Improved - Referrals Referrals: Monique Reyes MD [Primary Care Provider] - - Patient Instructions Printed Discharge Instructions: DI for Thoracic Back Pain Additional Instructions: Your xrays did not show any new rib fracture. Take Tylenol for pain as needed and follow-up with your doctor if pain persists - Post Discharge Activity
--- NOTE | 2018-01-12 08:08 | PDOC ---
*Physical Exam - Vital Signs Last Vital Signs Temp Pulse Resp BP Pulse Ox 98.3 F 95 H 20 148/83 98 01/12/18 07:31 01/12/18 07:31 01/12/18 07:31 01/12/18 07:31 01/12/18 07:31 - Physical Exam Comments: 01/12/18 08:07 The patient was examined by [GRAEME [place]] under my direct supervision. I personally evaluated the patient. I concur with the above findings and the plan of care. *DC/Admit/Observation/Transfer - Referrals Referrals: Monique Reyes MD [Primary Care Provider] - - Patient Instructions - Post Discharge Activity
[2018-01-12] MEDS ORDERED: ACETAMINOPHEN INJECTION 100 ML IVPB ONE (08:09)
[2018-01-12] MEDS ORDERED: traMADol HCL 50 MG TABLET PO ONE (08:18)
[2018-01-12] MEDS ORDERED: traMADol HCL 50 MG TABLET ONE (08:31)
[2018-01-12 12:05] VITALS: BP 150/97; PULSE 84; TEMP 98.1
[2018-01-12] MEDS ORDERED: LIDOCAINE 5% TOPICAL PATCH TP ONE (12:23)
[2018-01-12] MEDS ORDERED: LIDOCAINE 5% TOPICAL PATCH ONE (12:31)
== END 2018-01-12 14:23 | disposition home or self-care (01) ==
LOC: JER 06:29
DX: M54.6 Pain in thoracic spine (principal); Z87.891 Personal history of nicotine dependence; E10.9 Type 1 diabetes mellitus without complications; N18.6 End stage renal disease; Z99.2 Dependence on renal dialysis; I10 Essential (primary) hypertension; Z86.74 Personal history of sudden cardiac arrest
CPT/HCPCS: 36415; 71046-TC-FY; 71111-TC-FY; 84703; 99282-25

== ENCOUNTER 2018-01-27 05:13 | Inpatient (IN) | payer OTHER ==
--- NOTE | 2018-01-27 05:21 | PDOC ---
Attending Attestation - Resident Resident Name: Tae Mahmood - ED Attending Attestation I have performed the following: I have examined & evaluated the patient, The case was reviewed & discussed with the resident, I agree w/resident's findings & plan, Exceptions are as noted - HPI HPI: 01/27/18 05:20 Quinton came in to the ER today with CPR in progress Per mother, she was found seated in an upright position, unresponsive She had agonal respirations, she noted mucous on the floor She was last seen at her baseline at 11:30pm Had no complaints (though mom noted that she had complained intermittently about abdominal discomfort and has had labile BP in dialysis during the past few sessions) Upon EMS arrival, she was noted to be pulseless and in PEA She was given Epinephrine x 3, HCO3 x 1 She arrived to the ER with chest compressions in progress After transfer to our stretcher, pulse palpated 01/27/18 05:22 Quinton's history includes: seizures, IDDM, ESRD on HD (M/W/F), Anemia, HTN, PE 01/27/18 06:10 - Physicial Exam PE: 01/27/18 05:21 Pt is intubated Not responsive to verbal or painful stimuli (not on sedation at any time while in the ER) Tachycardiac - rate 120 Bilateral breath sounds No abd distention Bilateral lower extremity edema 01/27/18 23:27 - Medical Decision Making 01/27/18 05:25 Finger stick OVER RANGE EKG: ST, rate of 128, axis nml, intervals nml, no st elevations (+) artifact noted (+) PVC Pr slightly prolonged 01/27/18 05:27 01/27/18 06:07 Pupils fixed, unresponsive Lost vital signs at 5:50am CPR resumed Epi given 5:52am HCO3 given 5:53am Return of vital signs at 5:54am 01/27/18 06:11 01/27/18 06:24 Pt hyperglycemic >900 - Insulin ordered, insulin drip ordered Potassium 6.6 (Slight hemolysis) - Calcium chloride ordered, RENAL called for emergent dialysis (? PEA due to acidosis) ICU called for admission Hospitalist microblogged 01/27/18 06:52 2nd Call to Ren[facility] 01/27/18 06:[address] Calero Recommends Insulin drip to stablilze DKA and hyperglycemia Stabilize prior to ?HD later today Clinical Impression: Cardiac Arrest DKA, hyperglycemia
[2018-01-27 05:37] LABS: VENOUS PC02 90.5 mmHg (38-52); VENOUS PH 6.75 (7.32-7.42); VENOUS PO2 80.4 mmHg (28-48)
[2018-01-27 05:43] LABS: BASO % 1.6 % (0-2.0); EOS % 0.3 % (0-4.5); HEMATOCRIT 34.5 % (32.4-45.2); HEMOGLOBIN 9.2 GM/dL (10.7-15.3); LYMPH % 15.4 % (8-40); MCH 25.1 pg (25.7-33.7); MCHC 26.5 g/dl (32.0-36.0); MEAN CELL VOLUME 94.7 fl (80-96); MEAN PLT VOLUME 10.2 fl (7.5-11.1); MONO % 6.7 % (3.8-10.2); PLATELET COUNT 290 K/MM3 (134-434); RBC 3.65 M/mm3 (3.60-5.2); RDW 19.3 % (11.6-15.6); WHITE BLOOD COUNT 9.6 K/mm3 (4.0-10.0)
--- NOTE | 2018-01-27 05:49 | PDOC ---
History of Present Illness - General Chief Complaint: Cardiac Arrest Stated Complaint: UNRESPONSIVE Time Seen by Provider: 01/27/18 05:26 - History of Present Illness Initial Comments: 01/27/18 06:29 The patient is a 27 year old female with a history of HTN, DM, ESRD on dialysis (T, KJ, SAT) who presents following a cardiac arrest. The patient presents via EMS who report that the patient was found down. On EMS arrival the patient was bradycardic to 20 before going into PEA arrest. The patient received 3 rounds of epi and 1 roudn of Bicarb en rout to the ED and was coded for 25 minutes. The patient was last known well at 11 pm yesterday and received dialysis 1 day ago. ROS is unobtainable due to cardiac arrest. Past History - Past Medical History Allergies/Adverse Reactions: Allergies Allergy/AdvReac Type Severity Reaction Status Date / Time lactose AdvReac Verified 01/27/18 05:26 Home Medications: Ambulatory Orders cloNIDine HCL [Catapres -] 0.3 mg PO TID 06/28/17 Nebulizer Accessories [A.i.r.s. Nebulizer] 1 each MC PRN #1 kit 12/02/17 Albuterol 0.083% Nebulizer No [Ventolin 0.083% Nebulizer Soln -] 1 amp NEB Q6H #10 amp 01/06/18 Collagenase Clostridium Hist. [Santyl -] 1 applic TP DAILY tube 01/06/18 Gabapentin [Neurontin -] 300 mg PO BID #60 capsule 01/06/18 Insulin (Levemir) [Levemir Vial] 13 units SQ BID@0700,2200 #0 units 01/06/18 Nifedipine ER [Procardia XL -] 30 mg PO DAILY tab.er.24 01/06/18 Lidocaine 5% Patch [Lidoderm Patch -] 1 patch TP DAILY #7 patch 01/12/18 Insulin Sliding Scale [Novolog Vial Sliding Scale -] 1 vial SQ ACHS 01/27/18 oxyCODONE HCL [Roxicodone -] 5 mg PO Q8H PRN MDD 4 01/27/18 Labetalol HCl [Normodyne -] 200 mg PO BID 01/28/18 Losartan Potassium [Cozaar -] 50 mg PO DAILY 01/28/18 Anemia: Yes Asthma: Yes Cancer: No Cardiac Disorders: Yes (cardiac arrest twice) CVA: No COPD: No (O2 3l nc dependent.) CHF: No DVT: No Dementia: No Diabetes: Yes (15 yrs Insulin dependent) Dialysis: Yes (M-W-F) Disorders: Yes (esrd) HTN: Yes Hypercholesterolemia: No Kidney Stones: (ESRD, Dialysis Mon, W, F, Left arm Fistula) Liver Disease: No Seizures: Yes (Several yrs ago, no medication) Thyroid Disease: No - Surgical History Abdominal Surgery: No Appendectomy: No Cardiac Surgery: Yes (myxoma removed 2013) Cholecystectomy: Yes Lung Surgery: No Neurologic Surgery: No Orthopedic Surgery: Yes (foot sx x2) - Immunization History Td Vaccination: No TDAP Vaccination: No Immunization Up to Date: Yes - Suicide/Smoking/Psychosocial Hx Smoking Status: No Smoking History: Unknown if ever smoked Have you smoked in the past 12 months: No Number of Cigarettes Smoked Daily: 10 If you are a former smoker, when did you quit?: couple months ago Hx Alcohol Use: No Drug/Substance Use Hx: No Substance Use Type: None Hx Substance Use Treatment: No Review of Systems - Review of Systems Able to Perform ROS?: No (Cardiac Arrest) *Physical Exam - Vital Signs Last Vital Signs Temp Pulse Resp BP Pulse Ox 96.1 F L 121 H 8 L 243/110 H 99 01/27/18 05:13 01/27/18 05:13 01/27/18 05:13 01/27/18 05:13 01/27/18 05:13 - Physical Exam Comments: 01/27/18 06:45 General Appearance: Chronically ill appearing. In Severe Apparent Distress HEENT: Pupils fixed and dilated. No Pharyngeal Erythema, Tonsillar Exudate, Tonsillar Erythema Neck: No Cervical Lymphadenopathy Respiratory/Chest: Lungs Clear, Normal Breath Sounds. No Crackles, Rales, Rhonchi, Wheezing Cardiovascular: Cardiac Arrest. Gastrointestinal/Abdominal: Normal Bowel Sounds, Soft. No Guarding, Rebound, Tenderness Musculoskeletal: No CVA Tenderness Extremity: 3+ pitting edema in the lower extremitites. Normal Capillary Refill Integumentary: Normal Color, Dry, Warm Neurologic: Intubated and unresponsive Procedures - Central Line Central Line Lumen: triple Central Line Position: femoral (R) Complications: none Post Central Line Insertion: sutured, good blood return ED Treatment Course - LABORATORY CBC & Chemistry Diagram: 01/28/18 05:30 01/28/18 05:30 - ADDITIONAL ORDERS Additional order review: Laboratory Results 01/27/18 05:18 VBG pH 6.75 L* POC VBG pCO2 90.5 H* D POC VBG pO2 80.4 H D Mixed VBG HCO3 11.9 L* 01/27/18 05:30 RBC 3.65 MCV 94.7 D MCHC 26.5 L RDW 19.3 H MPV 10.2 D Neutrophils % 76.0 Lymphocytes % 15.4 Monocytes % 6.7 Eosinophils % 0.3 D Basophils % 1.6 Medical Decision Making - Critical Care Time Total Critical Care Time (minutes): 75 Critical Care Statement: The care of this patient involved high complexity decision making to prevent further life threatening deterioration of the patient 's condition and/or to evaluate & treat vital organ system(s) failure or risk of failure. - Medical Decision Making 01/27/18 06:47 The patient is a 27 year old female with a history of HTN, DM, ESRD on dialysis (T, KJ, SAT) who presents following a cardiac arrest. ROSC was obtained upon arrival to the ED. The patient was intubated in the field with a 6.5 tube and the tube's position was confirmed in the ED. The patient's HR maintained at 120 with a BP of 220s systolic before becoming bradycardic and going into PEA arrest. Chest compressions were started and the patient received 1 amp of epi and 1 amp of bicarb and a crash right femoral central line was placed before obtaining ROSC after 2 minutes. The patient's HR went to 130s with a bp of 220s systolic before becoming bradycardic after 15 minutes and going into PEA arrest for a third time and chest compressions were started. The patient received 1 amp of epi and 1 amp of bicarb before obtained ROSC after 2 minutes with the patient's HR going to 130s with a BP of 240s systolic. PH is 6.7. Lactate is 8.2. Glucose is 900s. Potassium is 6.6. The patient is likely arresting due to severe acidosis. We will start a bicarb drip. We will start a dopamine drip once the patient begins to become bradycardic and hypotensive again. ICU was contacted and accepted the patient. Renal was contacted and we are awaiting callback. We discussed the case with the admitting team who accepted the patient for admission. Given the patient's repeated cardiac arrests, her prognosis is poor. *DC/Admit/Observation/Transfer Diagnosis at time of Disposition: Cardiac arrest - Discharge Dispostion Condition at time of disposition: Critical - Referrals - Patient Instructions - Post Discharge Activity
[2018-01-27 06:02] LABS: INR 1.28 (0.83-1.09); PROTHROMBIN TIME (PATIENT) 15.2 SEC (9.7-13.0)
[2018-01-27 06:05] LABS: ACTIVATED PTT 39.9 SECONDS (25.2-36.5)
[2018-01-27] MEDS ORDERED: DOPAMINE 400 MG/D5W - 400,000 MCG/250 ML INFUS.BAG IVPB ONE (06:09)
[2018-01-27] MEDS ORDERED: DOPAMINE 400 MG/D5W - 400,000 MCG/250 ML INFUS.BAG IVPB SCH (06:15)
[2018-01-27] MEDS ORDERED: INSULIN REGULAR HUMAN 100 UNITS/ML *VIAL IVPUSH ONE (06:17)
[2018-01-27 06:20] LABS: ALBUMIN 2.7 g/dl (3.4-5.0); ALK PHOS > 1000 U/L (45-117); ANION GAP 23 MMOL/L (8-16); BILIRUBIN,TOTAL 0.4 mg/dL (0.2-1); BLOOD UREA NITROGEN 75 mg/dL (7-18); CALCIUM 7.7 mg/dL (8.5-10.1); CHLORIDE 90 mmol/L (98-107); CO2 13 mmol/L (21-32); MAGNESIUM 2.8 mg/dL (1.8-2.4); SGOT/AST 177 U/L (15-37); SGPT/ALT 44 U/L (13-61); SODIUM 125 mmol/L (136-145); TOT PROT 8.6 g/dl (6.4-8.2)
[2018-01-27 06:23] LABS: CREATININE 8.2 mg/dL (0.55-1.3); GLUCOSE,RANDOM 941 mg/dL (74-106)
[2018-01-27] MEDS ORDERED: CALCIUM CHLORIDE 10% 1 GM/10 ML *VIAL IVPUSH ONE (06:23)
[2018-01-27 06:24] LABS: POTASSIUM 6.6 mmol/L (3.5-5.1)
[2018-01-27] MEDS ORDERED: INSULIN REGULAR 100 UNITS in SODIUM CHLORIDE 99 ML IVPB SCH (06:30)
[2018-01-27] MEDS ORDERED: SODIUM BICARBONATE 8.4% 50 MEQ/50 ML VIAL IV ONE (06:56)
[2018-01-27 07:00] LABS: PHOSPHOROUS 9.3 mg/dL (2.5-4.9)
[2018-01-27 07:07] LABS: ARTERIAL BLD GAS O2 SATURATION 91.3 % (90-98.9); ARTERIAL BLOOD GAS PCO2 46.2 mmHg (35-45); ARTERIAL BLOOD GAS PO2 91.2 mmHg (80-100); CARBOXYHEMOGLOBIN 1.6 gm% (0.5-2.0)
[2018-01-27 07:10] LABS: ALLENS TEST POSITIVE
[2018-01-27 07:14] LABS: ARTERIAL BLOOD GAS pH 7.01 (7.35-7.45)
[2018-01-27 07:15] LABS: ARTERIAL BLOOD GAS BASE EXCESS -18.9 meq/l (-2-2)
[2018-01-27 07:19] LABS: ALBUMIN 2.5 g/dl (3.4-5.0); ALK PHOS 1079 U/L (45-117); ANION GAP 24 MMOL/L (8-16); BILIRUBIN,TOTAL 0.4 mg/dL (0.2-1); BLOOD UREA NITROGEN 75 mg/dL (7-18); CHLORIDE 91 mmol/L (98-107); CO2 12 mmol/L (21-32); POTASSIUM 5.3 mmol/L (3.5-5.1); SGOT/AST 383 U/L (15-37); SGPT/ALT 91 U/L (13-61); SODIUM 127 mmol/L (136-145); TOT PROT 7.9 g/dl (6.4-8.2)
[2018-01-27] MEDS ORDERED: SODIUM CHLORIDE 0.9% 500 ML INFUS.BAG IV ONE (07:22)
[2018-01-27 07:33] LABS: CREATININE 8.1 mg/dL (0.55-1.3); GLUCOSE,RANDOM 911 mg/dL (74-106)
--- NOTE | 2018-01-27 07:48 | PDOC ---
*Physical Exam - Vital Signs Last Vital Signs Temp Pulse Resp BP Pulse Ox 96.1 F L 121 H 24 H 243/110 H 92 L 01/27/18 05:13 01/27/18 05:13 01/27/18 05:30 01/27/18 05:13 01/27/18 05:19 ED Treatment Course - LABORATORY CBC & Chemistry Diagram: 01/27/18 05:30 01/27/18 06:08 - ADDITIONAL ORDERS Additional order review: Laboratory Results 01/27/18 01/27/18 01/27/18 07:00 06:08 05:30 PT with INR INR PTT (Actin FS) Anticoagulation Therapy No Result Required. Puncture Site Right brachial ABG pH 7.01 L* D ABG pCO2 at Pt Temp 46.2 H ABG pO2 at Pt Temp 91.2 D ABG HCO3 11.0 L* ABG O2 Sat (Measured) 91.3 ABG O2 Content 11.2 L ABG Base Excess -18.9 L* Izaiah Test Positive VBG pH POC VBG pCO2 POC VBG pO2 Mixed VBG HCO3 Carboxyhemoglobin 1.6 Methemoglobin 0.4 O2 Delivery Device Mech vent Oxygen Flow Rate 50% Vent Mode No Result Required. Vent Rate 12 Mechanical Rate No Result Required. PEEP 5.0 Pressure Support Vent No Result Required. Sodium 127 L Potassium 5.3 H Chloride 91 L Carbon Dioxide 12 L Anion Gap 24 H BUN 75 H Creatinine 8.1 H* Creat Clearance w eGFR 5.91 Random Glucose 911 H* Lactic Acid 8.2 H* Calcium 7.0 L Phosphorus Magnesium Total Bilirubin 0.4 AST 383 H ALT 91 H Alkaline Phosphatase 1079 H Creatine Kinase Creatine Kinase Index CK-MB (CK-2) Troponin I Total Protein 7.9 Albumin 2.5 L 01/27/18 01/27/18 01/27/18 05:30 05:30 05:18 PT with INR 15.20 H INR 1.28 H PTT (Actin FS) 39.9 H Anticoagulation Therapy Puncture Site ABG pH ABG pCO2 at Pt Temp ABG pO2 at Pt Temp ABG HCO3 ABG O2 Sat (Measured) ABG O2 Content ABG Base Excess Izaiah Test VBG pH 6.75 L* POC VBG pCO2 90.5 H* D POC VBG pO2 80.4 H D Mixed VBG HCO3 11.9 L* Carboxyhemoglobin Methemoglobin O2 Delivery Device Oxygen Flow Rate Vent Mode Vent Rate Mechanical Rate PEEP Pressure Support Vent Sodium 125 L Potassium 6.6 H* Chloride 90 L Carbon Dioxide 13 L Anion Gap 23 H BUN 75 H Creatinine 8.2 H* Creat Clearance w eGFR 5.82 Random Glucose 941 H* Lactic Acid Calcium 7.7 L Phosphorus 9.3 H* Magnesium 2.8 H Total Bilirubin 0.4 AST 177 H ALT 44 Alkaline Phosphatase > 1000 H Creatine Kinase 234 H Creatine Kinase Index 2.2 CK-MB (CK-2) 5.3 H Troponin I < 0.02 Total Protein 8.6 H Albumin 2.7 L 01/27/18 05:30 RBC 3.65 MCV 94.7 D MCHC 26.5 L RDW 19.3 H MPV 10.2 D Neutrophils % 76.0 Lymphocytes % 15.4 Monocytes % 6.7 Eosinophils % 0.3 D Basophils % 1.6 Medical Decision Making - Medical Decision Making 01/27/18 07:47 Dobutamine Repeat BP 135/79 HR 98 01/27/18 08:57 Patient desaturated to 80's s/p suction CXR Abx *DC/Admit/Observation/Transfer - Discharge Dispostion Condition at time of disposition: Critical Decision to Admit order Date/Time: Decision to Admit Order Category Date Time Status Decision to Admit to Hospital Routine Admission 01/27/18 07:33 Active - Referrals - Patient Instructions - Post Discharge Activity
[2018-01-27] MEDS ORDERED: SODIUM CHLORIDE 1,000 ML IV SCH (08:45)
[2018-01-27] MEDS ORDERED: PIPERACILLIN/TAZOB 4.5 GM 4.5 GM in DEXTROSE 5%-WATER 100 ML IVPB ONE (08:49)
[2018-01-27 08:56] LABS: ARTERIAL BLD GAS O2 SATURATION 98.9 % (90-98.9); ARTERIAL BLOOD GAS PCO2 53.6 mmHg (35-45)
[2018-01-27 08:58] LABS: ALLENS TEST POSITIVE; ARTERIAL BLOOD GAS pH 6.99 (7.35-7.45)
[2018-01-27] MEDS ORDERED: VANCOMYCIN 1,000 MG in DEXTROSE 5%-WATER - 250 ML IVPB SCH (09:00)
[2018-01-27] MEDS ORDERED: PIPERACILLIN/TAZOB 4.5 GM 4.5 GM/100 ML BAG IVPB ONE (09:14)
[2018-01-27] MEDS ORDERED: VANCOMYCIN 1 GRAM (PRE-DOCKED) 1,000 MG/250 ML BAG IVPB ONE (09:14)
--- NOTE | 2018-01-27 09:16 | HP ---
CHIEF COMPLAINT: Cardiac arrest , DKA PCP: Dr Bermudez HISTORY OF PRESENT ILLNESS: Pt is 27 year old female with pmhx of ESRD on HD (MWF ) LUE AVF, IDDM, HTN, PVD , Atrial thrombus, cardiac arrest, recent discharge with PNA, presented to the Ed today in cardiac arrest. pt was last seen in her usual state of health last night at 11.30 pm she had dinner with family watch TV and slept , today around 5.30 Am he mother checcked on her and found her on the floor with her head down , gasping for air , called 911, arrived in 7 min , pt was resucitaed by EMS and was given EPix3 ad 1 bi carb , resuscitation continued in ED for 25 min total , pt was hypotnesive uppon arrival with fixed dilated pupil, received pressores and was able to maintain BP around 139/94 , intubtaed and sedated . Family at bed side reports diarrhea last 2 days 4-5 times with abdominal cramps mother reports some palpitation last night improved with BP medicine pt has had multiple admission or DKA, Pneumonia and right calf abscessthat was drianed last month By Dr ortiz , she was aupposed to follow with Dr ortiz this Wednesday. ER course was notable for: (1)CPR , Epi X3 , Dpamin , Levofed (2)NSS , Insulin drip (3)CBC, CMP Recent Travel:denies PAST MEDICAL HISTORY:As per HPI ESRD, Atrial myxoma, IDDM, Pneumonia , PVD , seizures, HTN , LV diastolic dysfunction . PAST SURGICAL HISTORY: cardiac surgery myxoma removal 2013 Social History: Smoking:denies Alcohol:denies Drugs: denies Family History:DM, HTN Allergies lactose Adverse Reaction (Verified 01/27/18 05:26) HOME MEDICATIONS: Home Medications Medication Instructions Recorded cloNIDine HCL [Catapres -] 0.3 mg PO TID 06/28/17 Insulin Lispro [Humalog Kwikpen 100 unit SQ ASDIR #10 insuln.pen 10/03/17 U-100] Nebulizer Accessories [A.i.r.s. 1 each PRN #1 kit 12/02/17 Nebulizer] Insulin Sliding Scale [Novolog 1 vial SQ ACHS units 12/13/17 Vial Sliding Scale -] Labetalol HCl [Normodyne -] 400 mg PO BID tablet 12/13/17 Losartan Potassium [Cozaar -] 100 mg PO DAILY tablet 12/13/17 Albuterol 0.083% Nebulizer No 1 amp NEB Q6H #10 amp 01/06/18 [Ventolin 0.083% Nebulizer Soln -] Collagenase Clostridium Hist. 1 applic TP DAILY tube 01/06/18 [Santyl -] Gabapentin [Neurontin -] 300 mg PO BID #60 capsule 01/06/18 Insulin (Levemir) [Levemir Vial] 13 units SQ BID@0700,2200 #0 units 01/06/18 Nifedipine ER [Procardia XL -] 30 mg PO DAILY tab.er.24 01/06/18 oxyCODONE HCL [Roxicodone -] 10 mg PO Q8H PRN #20 tablet MDD 3 01/06/18 Lidocaine 5% Patch [Lidoderm Patch 1 patch TP DAILY #7 patch 01/12/18 -] REVIEW OF SYSTEMS unable to obtain , mother at bed side reports diarrhea last 2 days and abdominal cramp. PHYSICAL EXAMINATION Vital Signs - 24 hr 01/27/18 01/27/18 01/27/18 05:13 05:19 05:30 Temperature 96.1 F L Pulse Rate 121 H Pulse Rate [ Left Radial] Respiratory 8 L 24 H Rate Blood Pressure 243/110 H Blood Pressure [Right Arm] O2 Sat by Pulse 99 92 L Oximetry (%) 01/27/18 01/27/18 01/27/18 07:20 08:51 08:52 Temperature Pulse Rate 70 Pulse Rate [ 89 Left Radial] Respiratory 24 H 22 H Rate Blood Pressure 66/40 L Blood Pressure 103/65 [Right Arm] O2 Sat by Pulse 100 Oximetry (%) GENERAL: intubated , sedated , non responsive HEAD: NC/AT EYES:Fixed dialted pupils non reactive NECK: no JVD , supple LUNGS:decreased breath sounds atthe bases , on mechanical ventilation , No wheezes, and no crackles. HEART: tachy normal S1 and S2 without murmur, rub or gallop. ABDOMEN: Soft, not distended, normoactive bowel sounds, no guarding, MUSCULOSKELETAL:not able to assess UPPER EXTREMITIES: 2+ pulses, well-perfused. No cyanosis. LOWER EXTREMITIES: 2+ pulses+2 peripheral edema. NEUROLOGICAL: non responsive to verbal or pain stimuli Laboratory Results - last 24 hr 01/27/18 01/27/18 01/27/18 05:18 05:30 05:30 WBC 9.6 RBC 3.65 Hgb 9.2 L Hct 34.5 MCV 94.7 D MCH 25.1 L MCHC 26.5 L RDW 19.3 H Plt Count 290 MPV 10.2 D Absolute Neuts (auto) 7.3 Neutrophils % 76.0 Lymphocytes % 15.4 Monocytes % 6.7 Eosinophils % 0.3 D Basophils % 1.6 Nucleated RBC % 0 PT with INR INR PTT (Actin FS) Anticoagulation Therapy Puncture Site ABG pH ABG pCO2 at Pt Temp ABG pO2 at Pt Temp ABG HCO3 ABG O2 Sat (Measured) ABG O2 Content ABG Base Excess Izaiah Test VBG pH 6.75 L* POC VBG pCO2 90.5 H* D POC VBG pO2 80.4 H D Mixed VBG HCO3 11.9 L* Carboxyhemoglobin Methemoglobin O2 Delivery Device Oxygen Flow Rate Vent Mode Vent Rate Mechanical Rate PEEP Pressure Support Vent Sodium 125 L Potassium 6.6 H* Chloride 90 L Carbon Dioxide 13 L Anion Gap 23 H BUN 75 H Creatinine 8.2 H* Creat Clearance w eGFR 5.82 Random Glucose 941 H* Lactic Acid Calcium 7.7 L Phosphorus 9.3 H* Magnesium 2.8 H Total Bilirubin 0.4 AST 177 H ALT 44 Alkaline Phosphatase > 1000 H Creatine Kinase 234 H Creatine Kinase Index 2.2 CK-MB (CK-2) 5.3 H Troponin I < 0.02 Total Protein 8.6 H Albumin 2.7 L 01/27/18 01/27/18 01/27/18 05:30 05:30 06:08 WBC RBC Hgb Hct MCV MCH MCHC RDW Plt Count MPV Absolute Neuts (auto) Neutrophils % Lymphocytes % Monocytes % Eosinophils % Basophils % Nucleated RBC % PT with INR 15.20 H INR 1.28 H PTT (Actin FS) 39.9 H Anticoagulation Therapy Puncture Site ABG pH ABG pCO2 at Pt Temp ABG pO2 at Pt Temp ABG HCO3 ABG O2 Sat (Measured) ABG O2 Content ABG Base Excess Izaiah Test VBG pH POC VBG pCO2 POC VBG pO2 Mixed VBG HCO3 Carboxyhemoglobin Methemoglobin O2 Delivery Device Oxygen Flow Rate Vent Mode Vent Rate Mechanical Rate PEEP Pressure Support Vent Sodium 127 L Potassium 5.3 H Chloride 91 L Carbon Dioxide 12 L Anion Gap 24 H BUN 75 H Creatinine 8.1 H* Creat Clearance w eGFR 5.91 Random Glucose 911 H* Lactic Acid 8.2 H* Calcium 7.0 L Phosphorus Magnesium Total Bilirubin 0.4 AST 383 H ALT 91 H Alkaline Phosphatase 1079 H Creatine Kinase Creatine Kinase Index CK-MB (CK-2) Troponin I Total Protein 7.9 Albumin 2.5 L 01/27/18 01/27/18 07:00 08:50 WBC RBC Hgb Hct MCV MCH MCHC RDW Plt Count MPV Absolute Neuts (auto) Neutrophils % Lymphocytes % Monocytes % Eosinophils % Basophils % Nucleated RBC % PT with INR INR PTT (Actin FS) Anticoagulation Therapy No Result Required. No Result Required. Puncture Site Right brachial Right radial ABG pH 7.01 L* D 6.99 L* ABG pCO2 at Pt Temp 46.2 H 53.6 H ABG pO2 at Pt Temp 91.2 D 241.0 H* ABG HCO3 11.0 L* 12.3 L* ABG O2 Sat (Measured) 91.3 98.9 ABG O2 Content 11.2 L 12.2 L ABG Base Excess -18.9 L* -18.0 L* Izaiah Test Positive Positive VBG pH POC VBG pCO2 POC VBG pO2 Mixed VBG HCO3 Carboxyhemoglobin 1.6 Methemoglobin 0.4 O2 Delivery Device Mech vent No Result Required. Oxygen Flow Rate 50% Yes Vent Mode No Result Required. No Result Required. Vent Rate 12 No Result Required. Mechanical Rate No Result Required. No Result Required. PEEP 5.0 Pressure Support Vent No Result Required. No Result Required. Sodium Potassium Chloride Carbon Dioxide Anion Gap BUN Creatinine Creat Clearance w eGFR Random Glucose Lactic Acid Calcium Phosphorus Magnesium Total Bilirubin AST ALT Alkaline Phosphatase Creatine Kinase Creatine Kinase Index CK-MB (CK-2) Troponin I Total Protein Albumin CBC, BMP 01/27/18 05:30 01/27/18 06:08 ASSESSMENT/PLAN: 27 year old female with h/o IDDM, ESRD on HD(M,W,F ) DKA, presented to Ed from home with cardiac arrest and was found to have DKA admiited to ICU for further evaluation . 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 # Anemia of chronic disease * H/H 9.2/34.5 * no active bleeding * monitor H/H daily * transfused for Hgb below 7 # ESRD * HD M, W , F, last HD was 2 days ago * consulr Nephrology Dr Saravanan hawkins * HD when stable # PVD with right calf abscess * I& D was done last month by Dr ortiz * No sighns on infection , no leuckocytosis * cont Santyl # LV diastolic heart failure * H/O Myxoma removed in 2013 * Echocardiogram * consult cardiology # FEN * F: NS @ 100 CC/hr * E: monitor Q 6hr , * N: NPO , aspiration precautions # Proph * DVTs: SCDS B/L , hep SQ TID * GI:PPI IV BID # Code : Full code # Dispo: * Admit to ICU Visit type - Emergency Visit Emergency Visit: Yes ED Registration Date: 01/27/18 Care time: The patient presented to the Emergency Department on the above date and was hospitalized for further evaluation of their emergent condition. - New Patient This patient is new to me today: Yes Date on this admission: 01/27/18 - Critical Care Critical Care patient: Yes Total Critical Care Time (in minutes): 45 Critical Care Statement: The care of this patient involved high complexity decision making to prevent further life threatening deterioration of the patient 's condition and/or to evaluate & treat vital organ system(s) failure or risk of failure.
--- NOTE | 2018-01-27 09:19 | PN ---
Teaching Attending Note Name of Resident: Hamilton Bess ATTENDING PHYSICIAN STATEMENT I saw and evaluated the patient. I reviewed the resident's note and discussed the case with the resident. I agree with the resident's findings and plan as documented. SUBJECTIVE: This is a 27 year old woman with a history of type 1 DM, HTN, ESRD, PAD, PE, chronic hypoxic respiratory failure, anemia who was brought in to the ED by EMS after she was found at home unresponsive, sitting in a chair, with agonal breathing. She had last been seen in her [facility] last night around 11:30. She had been complaining of abdominal pain and diarrhea for several days, and she noted her glucose was >500 last night. EMS found her to be bradycardic then pulseless. CPR was started and she was administered epinephrine x3 and sodium bicarb x1. CPR was performed for about 25 minutes. When she arrived, she was intubated, tachycardic, and glucose was out of range. CPR had to be started again, and she was treated with epinephrine x1 and sodium bicarb x1. CPR was performed for about 4 minutes. She has been started on an insulin drip, Dopamine , Levophed. OBJECTIVE: Vital Signs Period Temp Pulse Resp BP Sys/Ames Pulse Ox Last 24 Hr 96.1 F 70-121 8-24 66-243/40-110 92-100 GENERAL: Unresponsive HEENT: Pupils dilated, non-reactive HEART: S1S2, tachycardic LUNGS: Ventilated BS ABDOMEN: Soft, non-distended, normal BS EXTREMITIES: 3+ edema Laboratory Tests 01/27/18 01/27/18 01/27/18 05:18 05:30 05:30 WBC 9.6 RBC 3.65 Hgb 9.2 L Hct 34.5 MCV 94.7 D MCH 25.1 L MCHC 26.5 L RDW 19.3 H Plt Count 290 MPV 10.2 D Absolute Neuts (auto) 7.3 Neutrophils % 76.0 Lymphocytes % 15.4 Monocytes % 6.7 Eosinophils % 0.3 D Basophils % 1.6 Nucleated RBC % 0 PT with INR INR PTT (Actin FS) Anticoagulation Therapy Puncture Site ABG pH ABG pCO2 at Pt Temp ABG pO2 at Pt Temp ABG HCO3 ABG O2 Sat (Measured) ABG O2 Content ABG Base Excess Izaiah Test VBG pH 6.75 L* POC VBG pCO2 90.5 H* D POC VBG pO2 80.4 H D Mixed VBG HCO3 11.9 L* Carboxyhemoglobin Methemoglobin O2 Delivery Device Oxygen Flow Rate Vent Mode Vent Rate Mechanical Rate PEEP Pressure Support Vent Sodium 125 L Potassium 6.6 H* Chloride 90 L Carbon Dioxide 13 L Anion Gap 23 H BUN 75 H Creatinine 8.2 H* Creat Clearance w eGFR 5.82 Random Glucose 941 H* Lactic Acid Calcium 7.7 L Phosphorus 9.3 H* Magnesium 2.8 H Total Bilirubin 0.4 AST 177 H ALT 44 Alkaline Phosphatase > 1000 H Creatine Kinase 234 H Creatine Kinase Index 2.2 CK-MB (CK-2) 5.3 H Troponin I < 0.02 Total Protein 8.6 H Albumin 2.7 L 01/27/18 01/27/18 01/27/18 05:30 05:30 06:08 WBC RBC Hgb Hct MCV MCH MCHC RDW Plt Count MPV Absolute Neuts (auto) Neutrophils % Lymphocytes % Monocytes % Eosinophils % Basophils % Nucleated RBC % PT with INR 15.20 H INR 1.28 H PTT (Actin FS) 39.9 H Anticoagulation Therapy Puncture Site ABG pH ABG pCO2 at Pt Temp ABG pO2 at Pt Temp ABG HCO3 ABG O2 Sat (Measured) ABG O2 Content ABG Base Excess Izaiah Test VBG pH POC VBG pCO2 POC VBG pO2 Mixed VBG HCO3 Carboxyhemoglobin Methemoglobin O2 Delivery Device Oxygen Flow Rate Vent Mode Vent Rate Mechanical Rate PEEP Pressure Support Vent Sodium 127 L Potassium 5.3 H Chloride 91 L Carbon Dioxide 12 L Anion Gap 24 H BUN 75 H Creatinine 8.1 H* Creat Clearance w eGFR 5.91 Random Glucose 911 H* Lactic Acid 8.2 H* Calcium 7.0 L Phosphorus Magnesium Total Bilirubin 0.4 AST 383 H ALT 91 H Alkaline Phosphatase 1079 H Creatine Kinase Creatine Kinase Index CK-MB (CK-2) Troponin I Total Protein 7.9 Albumin 2.5 L 01/27/18 01/27/18 07:00 08:50 WBC RBC Hgb Hct MCV MCH MCHC RDW Plt Count MPV Absolute Neuts (auto) Neutrophils % Lymphocytes % Monocytes % Eosinophils % Basophils % Nucleated RBC % PT with INR INR PTT (Actin FS) Anticoagulation Therapy No Result Required. No Result Required. Puncture Site Right brachial Right radial ABG pH 7.01 L* D 6.99 L* ABG pCO2 at Pt Temp 46.2 H 53.6 H ABG pO2 at Pt Temp 91.2 D 241.0 H* ABG HCO3 11.0 L* 12.3 L* ABG O2 Sat (Measured) 91.3 98.9 ABG O2 Content 11.2 L 12.2 L ABG Base Excess -18.9 L* -18.0 L* Izaiah Test Positive Positive VBG pH POC VBG pCO2 POC VBG pO2 Mixed VBG HCO3 Carboxyhemoglobin 1.6 Methemoglobin 0.4 O2 Delivery Device Mech vent No Result Required. Oxygen Flow Rate 50% Yes Vent Mode No Result Required. No Result Required. Vent Rate 12 No Result Required. Mechanical Rate No Result Required. No Result Required. PEEP 5.0 Pressure Support Vent No Result Required. No Result Required. Sodium Potassium Chloride Carbon Dioxide Anion Gap BUN Creatinine Creat Clearance w eGFR Random Glucose Lactic Acid Calcium Phosphorus Magnesium Total Bilirubin AST ALT Alkaline Phosphatase Creatine Kinase Creatine Kinase Index CK-MB (CK-2) Troponin I Total Protein Albumin Home Medications Medication Instructions Recorded cloNIDine HCL [Catapres -] 0.3 mg PO TID 06/28/17 Insulin Lispro [Humalog Kwikpen 100 unit SQ ASDIR #10 insuln.pen 10/03/17 U-100] Nebulizer Accessories [A.i.r.s. 1 each PRN #1 kit 12/02/17 Nebulizer] Insulin Sliding Scale [Novolog 1 vial SQ ACHS units 12/13/17 Vial Sliding Scale -] Labetalol HCl [Normodyne -] 400 mg PO BID tablet 12/13/17 Losartan Potassium [Cozaar -] 100 mg PO DAILY tablet 12/13/17 Albuterol 0.083% Nebulizer No 1 amp NEB Q6H #10 amp 01/06/18 [Ventolin 0.083% Nebulizer Soln -] Collagenase Clostridium Hist. 1 applic TP DAILY tube 01/06/18 [Santyl -] Gabapentin [Neurontin -] 300 mg PO BID #60 capsule 01/06/18 Insulin (Levemir) [Levemir Vial] 13 units SQ BID@0700,2200 #0 units 01/06/18 Nifedipine ER [Procardia XL -] 30 mg PO DAILY tab.er.24 01/06/18 oxyCODONE HCL [Roxicodone -] 10 mg PO Q8H PRN #20 tablet MDD 3 01/06/18 Lidocaine 5% Patch [Lidoderm Patch 1 patch TP DAILY #7 patch 01/12/18 -] ASSESSMENT AND PLAN: This is a 27 year old woman with a history of type 1 DM, HTN, ESRD, PAD, PE, chronic hypoxic respiratory failure, anemia who was brought in to the ED by EMS after she was found at home unresponsive, sitting in a chair, with agonal breathing. CPR was administered by EMS x 25 min and again in the ED x 4 min. She is intubated and has been started on pressors and an insulin drip. 1. Cardiac arrest - Admit to ICU - Maintain Levophed, Dopamine - Serial troponins - Echocardiogram - Cardiology consult 2. Acute on chronic hypoxic respiratory failure - Maintain vent - Critical care consult 3. DKA - Continue regular insulin IV drip - Continue IV fluid - Monitor fingersticks, electrolytes, anion gap 4. Lactic acidosis - Secondary to cardiac arrest with hypotension, hypoperfusion, epinephrine administration 5. Hyperkalemia - Continue IV fluid - HD as per nephrology 6. Hyponatremia - Likely pseudohyponatremia secondary to hypoglycemia - Corrected sodium is 138 7. Hyperphosphatemia 8. Hypermagnesemia 9. Abnormal LFTs - Chronic, likely worse secondary to hypoperfusion 10. Chronic diastolic heart failure 11. ESRD - Nephrology consult for HD 12. Anemia secondary to ESRD - Monitor hemoglobin and transfuse as needed 13. HTN - Hold meds secondary to hypotension 14. PAD
[2018-01-27 09:29] LABS: BASO % 0.8 % (0-2.0); EOS % 0.1 % (0-4.5); HEMATOCRIT 29.1 % (32.4-45.2); HEMOGLOBIN 8.4 GM/dL (10.7-15.3); LYMPH % 1.6 % (8-40); MCH 25.4 pg (25.7-33.7); MEAN CELL VOLUME 87.6 fl (80-96); MEAN PLT VOLUME 9.1 fl (7.5-11.1); MONO % 3.1 % (3.8-10.2); NEUT % 94.4 % (42.8-82.8); PLATELET COUNT 270 K/MM3 (134-434); RBC 3.33 M/mm3 (3.60-5.2); RDW 18.4 % (11.6-15.6); WHITE BLOOD COUNT 14.6 K/mm3 (4.0-10.0)
--- NOTE | 2018-01-27 09:42 | EKG ---
Test Reason : Blood Pressure : / mmHG Vent. Rate : 128 BPM Atrial Rate : 128 BPM P-R Int : 000 ms QRS Dur : 110 ms QT Int : 310 ms P-R-T Axes : 000 053 058 degrees QTc Int : 452 ms SINUS TACHYCARDIA WITH OCCASIONAL PREMATURE VENTRICULAR COMPLEXES LOW VOLTAGE QRS CANNOT RULE OUT ANTERIOR INFARCT (CITED ON OR BEFORE 27-DEC-2017) ABNORMAL ECG WHEN COMPARED WITH ECG OF 27-DEC-2017 20:36, PREMATURE VENTRICULAR COMPLEXES ARE NOW PRESENT QRS DURATION HAS INCREASED QUESTIONABLE CHANGE IN INITIAL FORCES OF ANTERIOR LEADS NONSPECIFIC T WAVE ABNORMALITY, IMPROVED IN ANTERIOR LEADS NONSPECIFIC T WAVE ABNORMALITY NOW EVIDENT IN LATERAL LEADS Confirmed by RAMANDEEP KATHLEEN, WESLEY ([id number]) on 01/27/2018 9:42:10 AM Referred By: Confirmed By:WESLEY SABILLON MD
[2018-01-27 09:44] LABS: INR 1.34 (0.83-1.09); PROTHROMBIN TIME (PATIENT) 15.9 SEC (9.7-13.0)
[2018-01-27 09:47] LABS: ACTIVATED PTT 28.2 SECONDS (25.2-36.5)
[2018-01-27 10:09] LABS: ALBUMIN 2.3 g/dl (3.4-5.0); ALK PHOS 1083 U/L (45-117); ANION GAP 20 MMOL/L (8-16); BILIRUBIN,TOTAL 0.6 mg/dL (0.2-1); BLOOD UREA NITROGEN 71 mg/dL (7-18); CHLORIDE 99 mmol/L (98-107); CO2 14 mmol/L (21-32); MAGNESIUM 2.2 mg/dL (1.8-2.4); PHOSPHOROUS 8.3 mg/dL (2.5-4.9); POTASSIUM 5.5 mmol/L (3.5-5.1); SGOT/AST 564 U/L (15-37); SGPT/ALT 126 U/L (13-61); SODIUM 133 mmol/L (136-145); TOT PROT 7.3 g/dl (6.4-8.2)
[2018-01-27 10:13] LABS: CREATININE 7.5 mg/dL (0.55-1.3); GLUCOSE,RANDOM 752 mg/dL (74-106)
[2018-01-27 10:14] LABS: CALCIUM 6.2 mg/dL (8.5-10.1)
--- NOTE | 2018-01-27 11:02 | CON.CARD ---
Cardiology Consult (text) - Consultation Consultation Note: cc: ams hx from charts, family, pt intubated hpi: 27 f hx esrd on hd, htn, dm, pe/dvt, left atrial myxoma s/p resection, left atrial thrombus in past, here with ams. here with cp. Recent admit for pna/ sepsis, went home and felt well for about 2 weeks, then past few days c/p abd pain and dehydrated. Then this AM was found by family unresponsive at home. EMS called and started cpr for PEA. Pulse restored and in ER she is intubated on pressors. pmh: per hpi psh: avf social: no tob fam: no premature cad, scd ros: unable to obtain 2/2 ams meds: Ambulatory Orders cloNIDine HCL [Catapres -] 0.3 mg PO TID 06/28/17 Nebulizer Accessories [A.i.r.s. Nebulizer] 1 each MC PRN #1 kit 12/02/17 Labetalol HCl [Normodyne -] 400 mg PO BID tablet 12/13/17 Losartan Potassium [Cozaar -] 100 mg PO DAILY tablet 12/13/17 Albuterol 0.083% Nebulizer No [Ventolin 0.083% Nebulizer Soln -] 1 amp NEB Q6H #10 amp 01/06/18 Collagenase Clostridium Hist. [Santyl -] 1 applic TP DAILY tube 01/06/18 Gabapentin [Neurontin -] 300 mg PO BID #60 capsule 01/06/18 Insulin (Levemir) [Levemir Vial] 13 units SQ BID@0700,2200 #0 units 01/06/18 Nifedipine ER [Procardia XL -] 30 mg PO DAILY tab.er.24 01/06/18 Lidocaine 5% Patch [Lidoderm Patch -] 1 patch TP DAILY #7 patch 01/12/18 Insulin Sliding Scale [Novolog Vial Sliding Scale -] 1 vial SQ ACHS 01/27/18 oxyCODONE HCL [Roxicodone -] 5 mg PO Q8H PRN MDD 4 01/27/18 Vital Signs Temp 96.1 F L 01/27/18 05:13 Pulse 84 01/27/18 10:30 Resp 24 H 01/27/18 11:02 BP 192/136 H 01/27/18 10:30 Pulse Ox 100 01/27/18 10:30 Intake & Output 01/26/18 01/26/18 01/27/18 11:59 23:59 11:59 Weight 165 lb Other: Voiding Method Diaper Height 5 ft 6 in Body Mass Index (BMI) 26.6 Weight Measurement Method Estimated by Staff intubated, no jvd rrr s1s2 no mrg ctabl anteriorly, vented non responsive trace le edema, chronic stasis changes of skin abd nd pos bs pos dp pt no carotid bruits no jaundice diaphoresis Laboratory Last Values WBC 14.6 K/mm3 (4.0-10.0) H 01/27/18 09:05 RBC 3.33 M/mm3 (3.60-5.2) L 01/27/18 09:05 Hgb 8.4 GM/dL (10.7-15.3) L 01/27/18 09:05 Hct 29.1 % (32.4-45.2) L D 01/27/18 09:05 MCV 87.6 fl (80-96) D 01/27/18 09:05 MCH 25.4 pg (25.7-33.7) L 01/27/18 09:05 MCHC 29.0 g/dl (32.0-36.0) L 01/27/18 09:05 RDW 18.4 % (11.6-15.6) H 01/27/18 09:05 Plt Count 270 K/MM3 (134-434) 01/27/18 09:05 MPV 9.1 fl (7.5-11.1) D 01/27/18 09:05 Absolute Neuts (auto) 13.8 K/mm3 (1.5-8.0) H 01/27/18 09:05 Neutrophils % 94.4 % (42.8-82.8) H D 01/27/18 09:05 Lymphocytes % 1.6 % (8-40) L D 01/27/18 09:05 Monocytes % 3.1 % (3.8-10.2) L 01/27/18 09:05 Eosinophils % 0.1 % (0-4.5) 01/27/18 09:05 Basophils % 0.8 % (0-2.0) 01/27/18 09:05 Nucleated RBC % 0 % (0-0) 01/27/18 09:05 PT with INR 15.90 SEC (9.7-13.0) H 01/27/18 09:05 INR 1.34 (0.83-1.09) H 01/27/18 09:05 PTT (Actin FS) 28.2 SECONDS (25.2-36.5) 01/27/18 09:05 Anticoagulation Therapy No Result Required. 01/27/18 08:50 Puncture Site Right radial 01/27/18 08:50 ABG pH 6.99 (7.35-7.45) L* 01/27/18 08:50 ABG pCO2 at Pt Temp 53.6 mmHg (35-45) H 01/27/18 08:50 ABG pO2 at Pt Temp 241.0 mmHg (80-100) H* 01/27/18 08:50 ABG HCO3 12.3 meq/L (22-26) L* 01/27/18 08:50 ABG O2 Sat (Measured) 98.9 % (90-98.9) 01/27/18 08:50 ABG O2 Content 12.2 % vol (15-22) L 01/27/18 08:50 ABG Base Excess -18.0 meq/l (-2-2) L* 01/27/18 08:50 Izaiah Test Positive 01/27/18 08:50 VBG pH 6.75 (7.32-7.42) L* 01/27/18 05:18 POC VBG pCO2 90.5 mmHg (38-52) H* D 01/27/18 05:18 POC VBG pO2 80.4 mmHg (28-48) H D 01/27/18 05:18 Mixed VBG HCO3 11.9 meq/L (19-25) L* 01/27/18 05:18 Carboxyhemoglobin 1.6 gm% (0.5-2.0) 01/27/18 07:00 Methemoglobin 0.4 % (0.4-1.5) 01/27/18 07:00 O2 Delivery Device No Result Required. 01/27/18 08:50 Oxygen Flow Rate Yes 01/27/18 08:50 Vent Mode No Result Required. 01/27/18 08:50 Vent Rate No Result Required. 01/27/18 08:50 Mechanical Rate No Result Required. 01/27/18 08:50 PEEP 5.0 cmH2O 01/27/18 07:00 Pressure Support Vent No Result Required. 01/27/18 08:50 Sodium 133 mmol/L (136-145) L 01/27/18 09:05 Potassium 5.5 mmol/L (3.5-5.1) H 01/27/18 09:05 Chloride 99 mmol/L (98-107) 01/27/18 09:05 Carbon Dioxide 14 mmol/L (21-32) L 01/27/18 09:05 Anion Gap 20 MMOL/L (8-16) H 01/27/18 09:05 BUN 71 mg/dL (7-18) H 01/27/18 09:05 Creatinine 7.5 mg/dL (0.55-1.3) H* 01/27/18 09:05 Creat Clearance w eGFR 6.45 (>60) 01/27/18 09:05 Random Glucose 752 mg/dL (74-106) H* 01/27/18 09:05 Hemoglobin A1c % 10.9 % (4.2-6.3) H 01/27/18 09:05 Lactic Acid 5.8 mmol/L (0.4-2.0) H* 01/27/18 09:05 Calcium 6.2 mg/dL (8.5-10.1) L* 01/27/18 09:05 Phosphorus 8.3 mg/dL (2.5-4.9) H 01/27/18 09:05 Magnesium 2.2 mg/dL (1.8-2.4) 01/27/18 09:05 Total Bilirubin 0.6 mg/dL (0.2-1) 01/27/18 09:05 AST 564 U/L (15-37) H 01/27/18 09:05 ALT 126 U/L (13-61) H 01/27/18 09:05 Alkaline Phosphatase 1083 U/L (45-117) H 01/27/18 09:05 Creatine Kinase 208 IU/L (26-192) H 01/27/18 09:05 Creatine Kinase Index 2.4 % (0.0-5.0) 01/27/18 09:05 CK-MB (CK-2) 5.0 ng/mL (0.5-3.6) H 01/27/18 09:05 Troponin I 0.05 ng/ml (0.00-0.05) 01/27/18 09:05 Total Protein 7.3 g/dl (6.4-8.2) 01/27/18 09:05 Albumin 2.3 g/dl (3.4-5.0) L 01/27/18 09:05 ecg: sr, nl intervals, no ischemic changes cxr: infiltrates/chf echo 12/2016: mod lvh, nl lv/rv, mod tr, mod phtn, mild pr, echo 12/2017: nl lvef, mild lvh, iasa, mild tr, mild phtn est cct 35 mins a/p: 27 f hx esrd on hd, htn, dm, pe/dvt, left atrial myxoma s/p resection, left atrial thrombus in past, here with ams. pea arrest, resp failure, hypotension: -possibly precipitated by dka, infection -check echo -trop negx1, trend -ecg unremarkable -cont abx, insulin for dka -tele, icu care -remains on pressors s/p code, titrate off as bp allows -vent management per crit care esrd: -cont hd per renal. htn: -hypotensive here, monitor bp, wean pressor left atrial myxoma: -s/p resection -echo pending
[2018-01-27 12:35] LABS: ACANTHOCYTES 1+; ANISOCYTOSIS 1+; MACROCYTOSIS 0; OVALOCYTE 1+; PLATELET ESTIMATE NORMAL
[2018-01-27 13:07] VITALS: BMI 25.0
[2018-01-27 14:31] LABS: ANION GAP 17 MMOL/L (8-16); BLOOD UREA NITROGEN 75 mg/dL (7-18); CHLORIDE 100 mmol/L (98-107); CO2 16 mmol/L (21-32); POTASSIUM 5.2 mmol/L (3.5-5.1); SODIUM 133 mmol/L (136-145)
[2018-01-27 14:33] LABS: CREATININE 7.5 mg/dL (0.55-1.3); GLUCOSE,RANDOM 668 mg/dL (74-106)
[2018-01-27 14:34] LABS: CALCIUM 6.3 mg/dL (8.5-10.1)
--- NOTE | 2018-01-27 15:04 | CONSULT ---
Consult Consult Specialty:: Nephrology ( [place]/ [place]) Reason for Consultation:: Pt is 27 year old female with pmhx of ESRD on HD, LUE AVF, IDDM, HTN, PVD, Cardiac arrest, recent discharge with PNA, presented to the ER today in cardiac arrest. Patient was last seen in her usual state of health last night at 11.30 pm she had dinner with family watch TV and slept , today around 5.30 Am her mother checked on her and found her on the floor with her head down , gasping for air , called 911. Pt was resucitaed by EMS. Upon arrival with fixed dilated pupil, received pressores and was able to maintain BP around 139/94 , intubtaed and sedated . The patient was last dialysed on Wednesday. - History of Present Illness Chief Complaint: as above. - History Source History Provided By: Family Member Limitations to Obtaining History: Unresponsive - Past Medical History Cardio/Vascular: Yes: CHF, Deep Vein Thrombosis, HTN, Other (thrombus in atrium , PE, DVT) Pulmonary: No: Sleep Apnea Renal/: Yes: Renal Failure, Hemodialysis ...LMP: 05/13/17 ...LMP Comment: many years ago ...: No Infectious Disease: Yes: MRSA, Other Endocrine: Yes: Diabetes Mellitus (type 1 on insulin pump) Additional Medical History: DVT, PE on coumadin - Past Surgical History Past Surgical History: Yes: AV Fistula/Graft (Right arm) - Alcohol/Substance Use Hx Alcohol Use: No History of Substance Use: reports: None - Smoking History Smoking history: Never smoked Have you smoked in the past 12 months: No Aproximately how many cigarettes per day: 10 If you are a former smoker, when did you quit?: couple months ago - Social History Usual Living Arrangement: With Parent ADL: Independent Occupation: unemployed History of Recent Travel: No Home Medications - Allergies Allergies/Adverse Reactions: Allergies Allergy/AdvReac Type Severity Reaction Status Date / Time lactose AdvReac Verified 01/27/18 05:26 - Home Medications Home Medications: Ambulatory Orders cloNIDine HCL [Catapres -] 0.3 mg PO TID 06/28/17 Nebulizer Accessories [A.i.r.s. Nebulizer] 1 each PRN #1 kit 12/02/17 Labetalol HCl [Normodyne -] 400 mg PO BID tablet 12/13/17 Losartan Potassium [Cozaar -] 100 mg PO DAILY tablet 12/13/17 Albuterol 0.083% Nebulizer No [Ventolin 0.083% Nebulizer Soln -] 1 amp NEB Q6H #10 amp 01/06/18 Collagenase Clostridium Hist. [Santyl -] 1 applic TP DAILY tube 01/06/18 Gabapentin [Neurontin -] 300 mg PO BID #60 capsule 01/06/18 Insulin (Levemir) [Levemir Vial] 13 units SQ BID@0700,2200 #0 units 01/06/18 Nifedipine ER [Procardia XL -] 30 mg PO DAILY tab.er.24 01/06/18 Lidocaine 5% Patch [Lidoderm Patch -] 1 patch TP DAILY #7 patch 01/12/18 Insulin Sliding Scale [Novolog Vial Sliding Scale -] 1 vial SQ ACHS 01/27/18 oxyCODONE HCL [Roxicodone -] 5 mg PO Q8H PRN MDD 4 01/27/18 Family Disease History - Family Disease History Family Disease History: Diabetes: Grandparent (HTN), Heart Disease: Grandparent , Other: Father (unknown), Mother (HTN) Review of Systems - Review of Systems Cardiovascular: reports: Other (Cardiac arrest) Neurological: reports: Change in LOC Physical Exam Vital Signs: Vital Signs Temperature 92.4 F L 01/27/18 12:31 Pulse Rate 78 01/27/18 14:30 Respiratory Rate 12 01/27/18 14:30 Blood Pressure 102/60 01/27/18 14:30 O2 Sat by Pulse Oximetry (%) 100 01/27/18 13:08 HENT: Yes: Normocephalic Neck: Yes: Supple Cardiovascular: Yes: S1, S2 Respiratory: Yes: Mechanically Ventilated Gastrointestinal: Yes: Normal Bowel Sounds, Soft Extremities: Yes: Other (cil brawny induration) Neurological: Yes: Unresponsive Labs: CBC, BMP 01/27/18 09:05 01/27/18 12:45 Assessment/Plan Pt is 27 year old female with pmhx of ESRD on HD, LUE AVF, IDDM, HTN, PVD, Cardiac arrest, recent discharge with PNA, presented to the ER today in cardiac arrest. Resuscitation done. Patient intubated and supported by mechanical ventilator. On pressor support. BP in acceptable range. HD started in the ICU, after cannulating her AVF Orders reviewed with the RN. BP and the rest of the vital signs are fairly maintained. Remains poorly responsive. Will monitor closely. Prognosis guarded. Susie Peter MD
--- NOTE | 2018-01-27 15:04 | CONSULT ---
Consultation: REQUESTING PROVIDER: CONSULT REQUEST: We have been asked to medically evaluate this patient for the ICU HISTORY OF PRESENT ILLNESS: Patient is sedated and intubated and history is from the chart, family and ER history of HPI. Pt is 27 year old female with pmhx of ESRD on HD (MWF) LUE AVF, IDDM, HTN, PVD , Atrial thrombus, cardiac arrest, recent discharge with PNA, presented to the Ed today in cardiac arrest. pt was last seen in her usual state of health last night at 11.30 pm she had dinner with family watch TV and slept , today around 5.30 Am he mother checked on her and found her on the floor with her head down, gasping for air, called 911, arrived in 7 min, pt was resuscitated by EMS and was given EPix3 ad 1 bi carb , resuscitation continued in ED for 25 min total , pt was hypotensive upon arrival with fixed dilated pupils bilaterally, received Dopamine and was able to maintain BP around 139/94 , intubated and sedated. Family at bed side reports diarrhea last 2 days 4-5 times with abdominal cramps mother reports some palpitation last night improved with BP medicine pt has had multiple admission for DKA, Pneumonia and right calf abscess that was drained last month By Dr Carr , she was supposed to follow with Dr Carr this Wednesday. ER course was notable for: (1)CPR, Epi X3, Dpamin, Levofed (2)NSS, Insulin drip (3)CBC, CMP REVIEW OF SYSTEMS: Cannot Obtain PHYSICAL EXAMINATION Vital Signs - 24 hr 01/27/18 01/27/18 01/27/18 05:13 05:19 05:30 Temperature 96.1 F L Pulse Rate 121 H Pulse Rate [ Left Radial] Respiratory 8 L 24 H Rate Blood Pressure 243/110 H Blood Pressure [Right Arm] O2 Sat by Pulse 99 92 L Oximetry (%) 01/27/18 01/27/18 01/27/18 07:20 08:51 08:52 Temperature Pulse Rate 70 Pulse Rate [ 89 Left Radial] Respiratory 24 H 22 H Rate Blood Pressure 66/40 L Blood Pressure 103/65 [Right Arm] O2 Sat by Pulse 100 Oximetry (%) 01/27/18 01/27/18 01/27/18 09:30 09:56 10:30 Temperature Pulse Rate 83 81 Pulse Rate [ 88 84 Left Radial] Respiratory 24 H 22 H Rate Blood Pressure 168/116 H 170/120 H Blood Pressure 167/117 H 192/136 H [Right Arm] O2 Sat by Pulse 100 100 Oximetry (%) 01/27/18 01/27/18 01/27/18 11:02 12:20 12:26 Temperature 92.4 F L Pulse Rate 75 74 Pulse Rate [ Left Radial] Respiratory 24 H 12 12 Rate Blood Pressure 108/74 108/74 Blood Pressure [Right Arm] O2 Sat by Pulse Oximetry (%) 01/27/18 01/27/18 01/27/18 12:30 12:31 13:00 Temperature 92.4 F L Pulse Rate 75 74 100 H Pulse Rate [ Left Radial] Respiratory 12 12 14 Rate Blood Pressure 104/65 108/74 99/62 Blood Pressure [Right Arm] O2 Sat by Pulse Oximetry (%) 01/27/18 01/27/18 01/27/18 13:08 13:30 13:37 Temperature Pulse Rate 79 Pulse Rate [ Left Radial] Respiratory 12 12 Rate Blood Pressure 104/65 Blood Pressure [Right Arm] O2 Sat by Pulse 100 Oximetry (%) 01/27/18 01/27/18 14:00 14:30 Temperature 94.1 F L Pulse Rate 78 78 Pulse Rate [ Left Radial] Respiratory 12 12 Rate Blood Pressure 101/61 102/60 Blood Pressure [Right Arm] O2 Sat by Pulse Oximetry (%) GENERAL: Intubated HEAD: NC/AT EYES: Fixed - mid dilated pupils. Non-reactive to light. EARS, NOSE, THROAT: Ears normal, nares patent. NECK: No JVD or masses. Trachea midline. LUNGS: Intubated. HEART: Regular rate and rhythm, normal S1 and S2 without murmur, rub or gallop. ABDOMEN: Soft, nontender, not distended, normoactive bowel sounds, no guarding, no rebound, no masses. No hepatomegaly or splenomegaly. MUSCULOSKELETAL: Normal range of motion at all joints. No bony deformities or tenderness. No CVA tenderness. UPPER EXTREMITIES: 2+ pulses, warm, well-perfused. No cyanosis. No clubbing. No peripheral edema. LOWER EXTREMITIES: 2+ pulses, warm, well-perfused. No peripheral edema. SKIN: cool, dry. Laboratory Results - last 24 hr 01/27/18 01/27/18 01/27/18 05:18 05:30 05:30 WBC 9.6 RBC 3.65 Hgb 9.2 L Hct 34.5 MCV 94.7 D MCH 25.1 L MCHC 26.5 L RDW 19.3 H Plt Count 290 MPV 10.2 D Absolute Neuts (auto) 7.3 Neutrophils % 76.0 Neutrophils % (Manual) Band Neutrophils % Lymphocytes % 15.4 Lymphocytes % (Manual) Monocytes % 6.7 Monocytes % (Manual) Eosinophils % 0.3 D Eosinophils % (Manual) Basophils % 1.6 Basophils % (Manual) Myelocytes % (Man) Promyelocytes % (Man) Blast Cells % (Manual) Nucleated RBC % 0 Metamyelocytes Hypochromia Platelet Estimate Polychromasia Poikilocytosis Anisocytosis Microcytosis Macrocytosis Ovalocytes Acanthocytes (Spur) PT with INR INR PTT (Actin FS) Anticoagulation Therapy Puncture Site ABG pH ABG pCO2 at Pt Temp ABG pO2 at Pt Temp ABG HCO3 ABG O2 Sat (Measured) ABG O2 Content ABG Base Excess Izaiah Test VBG pH 6.75 L* POC VBG pCO2 90.5 H* D POC VBG pO2 80.4 H D Mixed VBG HCO3 11.9 L* Carboxyhemoglobin Methemoglobin O2 Delivery Device Oxygen Flow Rate Vent Mode Vent Rate Mechanical Rate PEEP Pressure Support Vent Sodium 125 L Potassium 6.6 H* Chloride 90 L Carbon Dioxide 13 L Anion Gap 23 H BUN 75 H Creatinine 8.2 H* Creat Clearance w eGFR 5.82 Random Glucose 941 H* Hemoglobin A1c % Lactic Acid Calcium 7.7 L Phosphorus 9.3 H* Magnesium 2.8 H Total Bilirubin 0.4 AST 177 H ALT 44 Alkaline Phosphatase > 1000 H Creatine Kinase 234 H Creatine Kinase Index 2.2 CK-MB (CK-2) 5.3 H Troponin I < 0.02 Total Protein 8.6 H Albumin 2.7 L Beta HCG, Quant 01/27/18 01/27/18 01/27/18 05:30 05:30 06:08 WBC RBC Hgb Hct MCV MCH MCHC RDW Plt Count MPV Absolute Neuts (auto) Neutrophils % Neutrophils % (Manual) Band Neutrophils % Lymphocytes % Lymphocytes % (Manual) Monocytes % Monocytes % (Manual) Eosinophils % Eosinophils % (Manual) Basophils % Basophils % (Manual) Myelocytes % (Man) Promyelocytes % (Man) Blast Cells % (Manual) Nucleated RBC % Metamyelocytes Hypochromia Platelet Estimate Polychromasia Poikilocytosis Anisocytosis Microcytosis Macrocytosis Ovalocytes Acanthocytes (Spur) PT with INR 15.20 H INR 1.28 H PTT (Actin FS) 39.9 H Anticoagulation Therapy Puncture Site ABG pH ABG pCO2 at Pt Temp ABG pO2 at Pt Temp ABG HCO3 ABG O2 Sat (Measured) ABG O2 Content ABG Base Excess Izaiah Test VBG pH POC VBG pCO2 POC VBG pO2 Mixed VBG HCO3 Carboxyhemoglobin Methemoglobin O2 Delivery Device Oxygen Flow Rate Vent Mode Vent Rate Mechanical Rate PEEP Pressure Support Vent Sodium 127 L Potassium 5.3 H Chloride 91 L Carbon Dioxide 12 L Anion Gap 24 H BUN 75 H Creatinine 8.1 H* Creat Clearance w eGFR 5.91 Random Glucose 911 H* Hemoglobin A1c % Lactic Acid 8.2 H* Calcium 7.0 L Phosphorus Magnesium Total Bilirubin 0.4 AST 383 H ALT 91 H Alkaline Phosphatase 1079 H Creatine Kinase Creatine Kinase Index CK-MB (CK-2) Troponin I Total Protein 7.9 Albumin 2.5 L Beta HCG, Quant 01/27/18 01/27/18 01/27/18 07:00 08:50 09:05 WBC 14.6 H RBC 3.33 L Hgb 8.4 L Hct 29.1 L D MCV 87.6 D MCH 25.4 L MCHC 29.0 L RDW 18.4 H Plt Count 270 MPV 9.1 D Absolute Neuts (auto) 13.8 H Neutrophils % 94.4 H D Neutrophils % (Manual) 84.0 H Band Neutrophils % 12.0 Lymphocytes % 1.6 L D Lymphocytes % (Manual) 0.0 L Monocytes % 3.1 L Monocytes % (Manual) 2 L D Eosinophils % 0.1 Eosinophils % (Manual) 0.0 D Basophils % 0.8 Basophils % (Manual) 0.0 Myelocytes % (Man) 0 Promyelocytes % (Man) 0 Blast Cells % (Manual) 0 Nucleated RBC % 0 Metamyelocytes 2 D Hypochromia 1+ Platelet Estimate Normal Polychromasia 1+ Poikilocytosis 2+ Anisocytosis 1+ Microcytosis 0 Macrocytosis 0 Ovalocytes 1+ Acanthocytes (Spur) 1+ PT with INR INR PTT (Actin FS) Anticoagulation Therapy No Result Required. No Result Required. Puncture Site Right brachial Right radial ABG pH 7.01 L* D 6.99 L* ABG pCO2 at Pt Temp 46.2 H 53.6 H ABG pO2 at Pt Temp 91.2 D 241.0 H* ABG HCO3 11.0 L* 12.3 L* ABG O2 Sat (Measured) 91.3 98.9 ABG O2 Content 11.2 L 12.2 L ABG Base Excess -18.9 L* -18.0 L* Izaiah Test Positive Positive VBG pH POC VBG pCO2 POC VBG pO2 Mixed VBG HCO3 Carboxyhemoglobin 1.6 Methemoglobin 0.4 O2 Delivery Device Mech vent No Result Required. Oxygen Flow Rate 50% Yes Vent Mode No Result Required. No Result Required. Vent Rate 12 No Result Required. Mechanical Rate No Result Required. No Result Required. PEEP 5.0 Pressure Support Vent No Result Required. No Result Required. Sodium Potassium Chloride Carbon Dioxide Anion Gap BUN Creatinine Creat Clearance w eGFR Random Glucose Hemoglobin A1c % Lactic Acid Calcium Phosphorus Magnesium Total Bilirubin AST ALT Alkaline Phosphatase Creatine Kinase Creatine Kinase Index CK-MB (CK-2) Troponin I Total Protein Albumin Beta HCG, Quant 01/27/18 01/27/18 01/27/18 09:05 09:05 09:05 WBC RBC Hgb Hct MCV MCH MCHC RDW Plt Count MPV Absolute Neuts (auto) Neutrophils % Neutrophils % (Manual) Band Neutrophils % Lymphocytes % Lymphocytes % (Manual) Monocytes % Monocytes % (Manual) Eosinophils % Eosinophils % (Manual) Basophils % Basophils % (Manual) Myelocytes % (Man) Promyelocytes % (Man) Blast Cells % (Manual) Nucleated RBC % Metamyelocytes Hypochromia Platelet Estimate Polychromasia Poikilocytosis Anisocytosis Microcytosis Macrocytosis Ovalocytes Acanthocytes (Spur) PT with INR 15.90 H INR 1.34 H PTT (Actin FS) 28.2 Anticoagulation Therapy Puncture Site ABG pH ABG pCO2 at Pt Temp ABG pO2 at Pt Temp ABG HCO3 ABG O2 Sat (Measured) ABG O2 Content ABG Base Excess Izaiah Test VBG pH POC VBG pCO2 POC VBG pO2 Mixed VBG HCO3 Carboxyhemoglobin Methemoglobin O2 Delivery Device Oxygen Flow Rate Vent Mode Vent Rate Mechanical Rate PEEP Pressure Support Vent Sodium 133 L Potassium 5.5 H Chloride 99 Carbon Dioxide 14 L Anion Gap 20 H BUN 71 H Creatinine 7.5 H* Creat Clearance w eGFR 6.45 Random Glucose 752 H* Hemoglobin A1c % 10.9 H Lactic Acid Calcium 6.2 L* Phosphorus 8.3 H Magnesium 2.2 Total Bilirubin 0.6 AST 564 H ALT 126 H Alkaline Phosphatase 1083 H Creatine Kinase 208 H Creatine Kinase Index 2.4 CK-MB (CK-2) 5.0 H Troponin I 0.05 Total Protein 7.3 Albumin 2.3 L Beta HCG, Quant 8.0 01/27/18 01/27/18 01/27/18 09:05 12:45 12:45 WBC RBC Hgb Hct MCV MCH MCHC RDW Plt Count MPV Absolute Neuts (auto) Neutrophils % Neutrophils % (Manual) Band Neutrophils % Lymphocytes % Lymphocytes % (Manual) Monocytes % Monocytes % (Manual) Eosinophils % Eosinophils % (Manual) Basophils % Basophils % (Manual) Myelocytes % (Man) Promyelocytes % (Man) Blast Cells % (Manual) Nucleated RBC % Metamyelocytes Hypochromia Platelet Estimate Polychromasia Poikilocytosis Anisocytosis Microcytosis Macrocytosis Ovalocytes Acanthocytes (Spur) PT with INR INR PTT (Actin FS) Anticoagulation Therapy Puncture Site ABG pH ABG pCO2 at Pt Temp ABG pO2 at Pt Temp ABG HCO3 ABG O2 Sat (Measured) ABG O2 Content ABG Base Excess Izaiah Test VBG pH POC VBG pCO2 POC VBG pO2 Mixed VBG HCO3 Carboxyhemoglobin Methemoglobin O2 Delivery Device Oxygen Flow Rate Vent Mode Vent Rate Mechanical Rate PEEP Pressure Support Vent Sodium 133 L Potassium 5.2 H Chloride 100 Carbon Dioxide 16 L Anion Gap 17 H BUN 75 H Creatinine 7.5 H* Creat Clearance w eGFR 6.45 Random Glucose 668 H* Hemoglobin A1c % Lactic Acid 5.8 H* 3.8 H* Calcium 6.3 L* Phosphorus Magnesium Total Bilirubin AST ALT Alkaline Phosphatase Creatine Kinase Creatine Kinase Index CK-MB (CK-2) Troponin I Total Protein Albumin Beta HCG, Quant 7.7 01/27/18 12:45 WBC RBC Hgb Hct MCV MCH MCHC RDW Plt Count MPV Absolute Neuts (auto) Neutrophils % Neutrophils % (Manual) Band Neutrophils % Lymphocytes % Lymphocytes % (Manual) Monocytes % Monocytes % (Manual) Eosinophils % Eosinophils % (Manual) Basophils % Basophils % (Manual) Myelocytes % (Man) Promyelocytes % (Man) Blast Cells % (Manual) Nucleated RBC % Metamyelocytes Hypochromia Platelet Estimate Polychromasia Poikilocytosis Anisocytosis Microcytosis Macrocytosis Ovalocytes Acanthocytes (Spur) PT with INR INR PTT (Actin FS) Anticoagulation Therapy Puncture Site ABG pH ABG pCO2 at Pt Temp ABG pO2 at Pt Temp ABG HCO3 ABG O2 Sat (Measured) ABG O2 Content ABG Base Excess Izaiah Test VBG pH POC VBG pCO2 POC VBG pO2 Mixed VBG HCO3 Carboxyhemoglobin Methemoglobin O2 Delivery Device Oxygen Flow Rate Vent Mode Vent Rate Mechanical Rate PEEP Pressure Support Vent Sodium Potassium Chloride Carbon Dioxide Anion Gap BUN Creatinine Creat Clearance w eGFR Random Glucose Hemoglobin A1c % Lactic Acid Calcium Phosphorus Magnesium Total Bilirubin AST ALT Alkaline Phosphatase Creatine Kinase Creatine Kinase Index CK-MB (CK-2) Troponin I Total Protein Albumin Beta HCG, Quant Cancelled Active Medications Generic Name Dose Route Start Last Admin Trade Name Freq PRN Reason Stop Dose Admin Chlorhexidine Gluconate 1 applic 01/27/18 22:00 Hibiclens For Decolonization - TP HS ROSA MARIA Heparin Sodium (Porcine) 5,000 unit 01/27/18 14:00 Heparin - SQ TID ROSA MARIA Dopamine HCl/Dextrose 400,000 mcg in 250 mls @ 14.033 mls/hr 01/27/18 06:15 01/27/18 09:56 Dopamine 400 Mg/D5w - IVPB 0 mcg/kg/min TITR ROSA MARIA 0 mls/hr Titration Protocol 5 MCG/KG/MIN Insulin Human Regular 100 100 mls @ 7 mls/hr 01/27/18 06:30 01/27/18 07:16 units/ Sodium Chloride IVPB 7 units/hr TITR ROSA MARIA 7 mls/hr Administration Protocol 7 UNITS/HR Vancomycin HCl 1,000 mg/ 250 mls @ 200 mls/hr 01/27/18 09:00 01/27/18 09:45 Dextrose IVPB 01/28/18 08:59 200 mls/hr Q24H ROSA MARIA Administration Protocol Sodium Chloride 1,000 mls @ 100 mls/hr 01/27/18 08:45 01/27/18 09:32 Normal Saline - IV 100 mls/hr ASDIR ROSA MARIA Administration Mupirocin 1 applic 01/27/18 22:00 Bactroban Ointment (For Decolonization) - NS 02/01/18 21:59 BID ROSA MARIA ASSESSMENT/PLAN: Assessment: 27 f hx esrd, htn, dm, pe/dvt, left atrial myxoma s/p resection, left atrial thrombus in past, here with ams. Coded, had PEA, ROSC. Pupils are mid-dilated and not responsive. Patient is hypothermic to 92.8 degrees Fahrenheit Giving patient Abx for possible infection. Patient's Prognosis is very poor. Plan: Cardiovascular: - Levophed for BP control. - frequent BP checks - Patient to receive ECHO tomorrow Renal: - Patient is receiving dialysis. DKA: - Will continue w insulin .1 mg/kg - Frequent chemistry checks. Replete as necessary. F/E/N: - NS @ 100 cc/hr - CMP, Mag, Phos check every 4 hours. - NPO Prophylaxis: - DVT: Heparin - GI: Protonix Dispo: - Full Code - Patient to remain in ICU Visit type - Emergency Visit Emergency Visit: Yes ED Registration Date: 01/27/18 Care time: The patient presented to the Emergency Department on the above date and was hospitalized for further evaluation of their emergent condition. - New Patient This patient is new to me today: Yes Date on this admission: 01/28/18 - Critical Care Critical Care patient: Yes Total Critical Care Time (in minutes): 36 Critical Care Statement: The care of this patient involved high complexity decision making to prevent further life threatening deterioration of the patient 's condition and/or to evaluate & treat vital organ system(s) failure or risk of failure.
--- NOTE | 2018-01-27 15:17 | PN ---
Teaching Attending Note Name of Resident: Vic Cummins ATTENDING PHYSICIAN STATEMENT I saw and evaluated the patient. I reviewed the resident's note and discussed the case with the resident. I agree with the resident's findings and plan as documented. SUBJECTIVE: Patient well known to me from multiple admissions. ESRD on HD (MWF) via a LUE AVF, IDDM, HTN, PVD, Atrial thrombus, recent prolonged admissions due to PNA. Presented to the ER in cardiac arrest after she was found by her mother at 5: 30AM on the floor of her room apparently gasping for air. ACLS was initiated by EMS. Apparently the total time of ROSC was 25 minutes minimum. Now seen in the ICU. Intubated and not responsive. AC Mode of vent. CXR: ETT in place. Devices in place. Bilateral infiltrates. GENERAL: intubated , non responsive HEAD: NC/AT EYES: Fixed dilated pupils non reactive NECK: no JVD , supple LUNGS: Intubated, bilateral rhonchi. No wheezes, and no crackles. HEART: S1 and S2 without murmur, rub or gallop. ABDOMEN: Soft, not distended, normoactive bowel sounds, no guarding, MUSCULOSKELETAL:not able to assess UPPER EXTREMITIES: 2+ pulses, well-perfused. No cyanosis. LOWER EXTREMITIES: 2+ pulses+2 peripheral edema. NEUROLOGICAL: non responsive to verbal or pain stimuli Laboratory Results - last 24 hr 01/27/18 01/27/18 01/27/18 05:18 05:30 05:30 WBC 9.6 RBC 3.65 Hgb 9.2 L Hct 34.5 MCV 94.7 D MCH 25.1 L MCHC 26.5 L RDW 19.3 H Plt Count 290 MPV 10.2 D Absolute Neuts (auto) 7.3 Neutrophils % 76.0 Lymphocytes % 15.4 Monocytes % 6.7 Eosinophils % 0.3 D Basophils % 1.6 Nucleated RBC % 0 PT with INR INR PTT (Actin FS) Anticoagulation Therapy Puncture Site ABG pH ABG pCO2 at Pt Temp ABG pO2 at Pt Temp ABG HCO3 ABG O2 Sat (Measured) ABG O2 Content ABG Base Excess Izaiah Test VBG pH 6.75 L* POC VBG pCO2 90.5 H* D POC VBG pO2 80.4 H D Mixed VBG HCO3 11.9 L* Carboxyhemoglobin Methemoglobin O2 Delivery Device Oxygen Flow Rate Vent Mode Vent Rate Mechanical Rate PEEP Pressure Support Vent Sodium 125 L Potassium 6.6 H* Chloride 90 L Carbon Dioxide 13 L Anion Gap 23 H BUN 75 H Creatinine 8.2 H* Creat Clearance w eGFR 5.82 Random Glucose 941 H* Lactic Acid Calcium 7.7 L Phosphorus 9.3 H* Magnesium 2.8 H Total Bilirubin 0.4 AST 177 H ALT 44 Alkaline Phosphatase > 1000 H Creatine Kinase 234 H Creatine Kinase Index 2.2 CK-MB (CK-2) 5.3 H Troponin I < 0.02 Total Protein 8.6 H Albumin 2.7 L 01/27/18 01/27/18 01/27/18 05:30 05:30 06:08 WBC RBC Hgb Hct MCV MCH MCHC RDW Plt Count MPV Absolute Neuts (auto) Neutrophils % Lymphocytes % Monocytes % Eosinophils % Basophils % Nucleated RBC % PT with INR 15.20 H INR 1.28 H PTT (Actin FS) 39.9 H Anticoagulation Therapy Puncture Site ABG pH ABG pCO2 at Pt Temp ABG pO2 at Pt Temp ABG HCO3 ABG O2 Sat (Measured) ABG O2 Content ABG Base Excess Izaiah Test VBG pH POC VBG pCO2 POC VBG pO2 Mixed VBG HCO3 Carboxyhemoglobin Methemoglobin O2 Delivery Device Oxygen Flow Rate Vent Mode Vent Rate Mechanical Rate PEEP Pressure Support Vent Sodium 127 L Potassium 5.3 H Chloride 91 L Carbon Dioxide 12 L Anion Gap 24 H BUN 75 H Creatinine 8.1 H* Creat Clearance w eGFR 5.91 Random Glucose 911 H* Lactic Acid 8.2 H* Calcium 7.0 L Phosphorus Magnesium Total Bilirubin 0.4 AST 383 H ALT 91 H Alkaline Phosphatase 1079 H Creatine Kinase Creatine Kinase Index CK-MB (CK-2) Troponin I Total Protein 7.9 Albumin 2.5 L 01/27/18 01/27/18 07:00 08:50 WBC RBC Hgb Hct MCV MCH MCHC RDW Plt Count MPV Absolute Neuts (auto) Neutrophils % Lymphocytes % Monocytes % Eosinophils % Basophils % Nucleated RBC % PT with INR INR PTT (Actin FS) Anticoagulation Therapy No Result Required. No Result Required. Puncture Site Right brachial Right radial ABG pH 7.01 L* D 6.99 L* ABG pCO2 at Pt Temp 46.2 H 53.6 H ABG pO2 at Pt Temp 91.2 D 241.0 H* ABG HCO3 11.0 L* 12.3 L* ABG O2 Sat (Measured) 91.3 98.9 ABG O2 Content 11.2 L 12.2 L ABG Base Excess -18.9 L* -18.0 L* Izaiah Test Positive Positive VBG pH POC VBG pCO2 POC VBG pO2 Mixed VBG HCO3 Carboxyhemoglobin 1.6 Methemoglobin 0.4 O2 Delivery Device Mech vent No Result Required. Oxygen Flow Rate 50% Yes Vent Mode No Result Required. No Result Required. Vent Rate 12 No Result Required. Mechanical Rate No Result Required. No Result Required. PEEP 5.0 Pressure Support Vent No Result Required. No Result Required. Sodium Potassium Chloride Carbon Dioxide Anion Gap BUN Creatinine Creat Clearance w eGFR Random Glucose Lactic Acid Calcium Phosphorus Magnesium Total Bilirubin AST ALT Alkaline Phosphatase Creatine Kinase Creatine Kinase Index CK-MB (CK-2) Troponin I Total Protein Albumin ASSESSMENT/PLAN: S/P cardiac arrest (25 minutes to ROSC) ESRD on HD TIW DKA DM HTN Anemia Previous PNA Leukocytosis AC Mode of vent Temperature currently 34, so need for TTM Hold all sedation Low threshold for ABX Follow Neuro exam Noted HD is currently being performed NE for hemodynamic Strict I & O IV Insulin drip for glycemic control ICU monitoring Dr Ballesteros Critical care time spent in reviewing chart, evaluating patient and formulating plan - 36 minutes.
[2018-01-27] MEDS ORDERED: NOREPINEPHRINE BITARTRATE 8,000 MCG in SODIUM CHLORIDE 0.45% 992 ML IV SCH (15:30)
[2018-01-27] MEDS: HEPARIN NA (PORCINE) 5,000 UNITS/ML 1ML VIAL SQ SCH ×2 (16:34→21:37)
[2018-01-27 17:12] LABS: ARTERIAL BLD GAS O2 SATURATION 99.5 % (90-98.9); ARTERIAL BLOOD GAS BASE EXCESS -2.7 meq/l (-2-2)
[2018-01-27 17:13] LABS: ALLENS TEST POSITIVE
[2018-01-27 17:15] LABS: ARTERIAL BLOOD GAS PCO2 68.2 mmHg (35-45)
[2018-01-27 17:16] LABS: ANION GAP 10 MMOL/L (8-16); CALCIUM 7.4 mg/dL (8.5-10.1); CHLORIDE 98 mmol/L (98-107); CO2 28 mmol/L (21-32); CREATININE 3.4 mg/dL (0.55-1.3); GLUCOSE,RANDOM 274 mg/dL (74-106); MAGNESIUM 1.7 mg/dL (1.8-2.4); POTASSIUM 3.3 mmol/L (3.5-5.1); SODIUM 136 mmol/L (136-145)
--- NOTE | 2018-01-27 17:16 | CON.ID ---
Consult Consult Specialty:: infectious diseases Reason for Consultation:: ams,leukocytosis,resp failure intubated - History of Present Illness Chief Complaint: resp failure History of Present Illness: patient well known to me from multiple admissions who has been intubated and in icu before now intubated because of cardiac arrest' history obtained from the charts and ambulance records 27 year old female with pmhx of ESRD on HD LUE AVF, IDDM, HTN, PVD, Atrial thrombus, cardiac arrest, recent discharge with PNA, presented to the Ed today in cardiac arrest. pt was last seen in her usual state of health last night at 11.30 pm she had dinner with family watch TV and slept , today around 5.30 Am he mother checked on her and found her on the floor with her head down , gasping for air , called 911, arrived in 7 min , pt was resuscitated by EMS and was given EPix3 ad 1 bi carb , resuscitation continued in ED for 25 min total , pt was hypotensive upon arrival with fixed dilated pupil, received pressors and was able to maintain BP around 139/94 , intubtaed . Family at bed side reports diarrhea last 2 days 4-5 times with abdominal cramps mother reports some palpitation last night improved with BP medicine pt has had multiple admission or DKA, Pneumonia and right calf abscess which was drained last month - History Source History Provided By: Family Member, Medical Record, Transfer Record Limitations to Obtaining History: Clinical Condition - Past Medical History Cardio/Vascular: Yes: CHF, Deep Vein Thrombosis, HTN, Other (thrombus in atrium , PE, DVT) Pulmonary: No: Sleep Apnea Renal/: Yes: Renal Failure, Hemodialysis ...LMP: 05/13/17 ...LMP Comment: many years ago ...: No Infectious Disease: Yes: MRSA, Other Endocrine: Yes: Diabetes Mellitus (type 1 on insulin pump) Additional Medical History: DVT, PE on coumadin - Past Surgical History Past Surgical History: Yes: AV Fistula/Graft (Right arm) - Alcohol/Substance Use Hx Alcohol Use: No History of Substance Use: reports: None - Smoking History Smoking history: Never smoked Have you smoked in the past 12 months: No Aproximately how many cigarettes per day: 10 If you are a former smoker, when did you quit?: couple months ago - Social History Usual Living Arrangement: With Parent ADL: Independent Occupation: unemployed History of Recent Travel: No Home Medications - Allergies Allergies/Adverse Reactions: Allergies Allergy/AdvReac Type Severity Reaction Status Date / Time lactose AdvReac Verified 01/27/18 05:26 - Home Medications Home Medications: Ambulatory Orders RX: cloNIDine HCL [Catapres -] 0.3 mg PO TID 06/28/17 RX: Nebulizer Accessories [A.i.r.s. Nebulizer] 1 each MC PRN #1 kit 12/02/17 RX: Albuterol 0.083% Nebulizer No [Ventolin 0.083% Nebulizer Soln -] 1 amp NEB Q6H #10 amp 01/06/18 RX: Collagenase Clostridium Hist. [Santyl -] 1 applic TP DAILY tube 01/06/18 RX: Gabapentin [Neurontin -] 300 mg PO BID #60 capsule 01/06/18 RX: Insulin (Levemir) [Levemir Vial] 13 units SQ BID@0700,2200 #0 units RX: Nifedipine ER [Procardia XL -] 30 mg PO DAILY tab.er.24 01/06/18 Lidocaine 5% Patch [Lidoderm Patch -] 1 patch TP DAILY #7 patch 01/12/18 RX: Insulin Sliding Scale [Novolog Vial Sliding Scale -] 1 vial SQ ACHS RX: oxyCODONE HCL [Roxicodone -] 5 mg PO Q8H PRN MDD 4 01/27/18 RX: Labetalol HCl [Normodyne -] 200 mg PO BID 01/28/18 RX: Losartan Potassium [Cozaar -] 50 mg PO DAILY 01/28/18 Family Disease History - Family Disease History Family Disease History: Diabetes: Grandparent (HTN), Heart Disease: Grandparent , Other: Father (unknown), Mother (HTN) Review of Systems Unable to obtain ROS, reason: unable to obtain Physical Exam Vital Signs: Vital Signs Temperature 96.3 F L 01/27/18 16:00 Pulse Rate 79 01/27/18 16:00 Respiratory Rate 12 01/27/18 16:00 Blood Pressure 101/61 01/27/18 16:00 O2 Sat by Pulse Oximetry (%) 100 01/27/18 16:00 Constitutional: Yes: Other HENT: Yes: Other Neck: Yes: Supple Cardiovascular: Yes: Regular Rate and Rhythm, Tachycardia Respiratory: Yes: Intubated, Mechanically Ventilated Gastrointestinal: Yes: Normal Bowel Sounds, Soft Musculoskeletal: Yes: WNL Extremities: Yes: Other Wound/Incision: Yes: Dressing Dry and Intact Neurological: Yes: Other Psychiatric: Yes: Other Labs: CBC, BMP 01/27/18 09:05 01/27/18 16:00 Imaging - Results Chest X-ray: Report Reviewed, Image Reviewed Assessment/Plan S/P cardiac arrest (25 minutes to ROSC) Acute Respiratory Failure ESRD on HD TIW DKA DM HTN Anemia Previous PNA Leukocytosis plan will start patient on abx--patient has received vanco and zosyn as per icu nutrition monitor mental status prognosis poor family in room discussed with the family rest as per the team cc 40 min
[2018-01-27 17:17] LABS: BLOOD UREA NITROGEN 28 mg/dL (7-18)
[2018-01-27] MEDS ORDERED: DEXTROSE 5%-WATER - 50 ML IVPB ONE (17:28)
[2018-01-27] MEDS ORDERED: PIPERACILLIN/TAZOBACTAM 2.25 GM VIAL IVPB ONE (17:28)
[2018-01-27] MEDS: NOREPINEPHRINE BITARTRATE 8,000 MCG in SODIUM CHLORIDE 0.45% 992 ML IV SCH (17:36)
[2018-01-27] MEDS: PIPERACILLIN/TAZOB 2.25 GM 2.25 GM in DEXTROSE 5%-WATER - 50 ML IVPB SCH (17:37)
[2018-01-27] MEDS ORDERED: MAGNESIUM SULF 50% (8.12 MEQ/2 ML-1 GM VIAL) IVPB ONE (18:45)
[2018-01-27] MEDS: MUPIROCIN 2% TOPICAL OINTMENT FOR DECOLONIZATION NS SCH (21:38)
[2018-01-27] MEDS ORDERED: CHLORHEXIDINE GLUCONATE 4% CLEANSER FOR DECOLONIZATION TP SCH (22:00)
[2018-01-27] MEDS: INSULIN SLIDING SCALE (NOVOLOG) 1 VIAL SQ SCH ×2 (22:24→22:30)
[2018-01-27 22:54] LABS: ANION GAP 14 MMOL/L (8-16); BLOOD UREA NITROGEN 36 mg/dL (7-18); CALCIUM 7.3 mg/dL (8.5-10.1); CHLORIDE 100 mmol/L (98-107); CO2 25 mmol/L (21-32); CREATININE 4.2 mg/dL (0.55-1.3); POTASSIUM 4.4 mmol/L (3.5-5.1); SODIUM 139 mmol/L (136-145)
[2018-01-27 22:58] LABS: GLUCOSE,RANDOM 305 mg/dL (74-106)
[2018-01-28] MEDS: PIPERACILLIN/TAZOB 2.25 GM 2.25 GM in DEXTROSE 5%-WATER - 50 ML IVPB SCH ×2 (03:15→09:46)
[2018-01-28] MEDS ORDERED: PIPERACILLIN/TAZOBACTAM 2.25 GM VIAL IVPB ONE ×2 (03:20→09:42)
[2018-01-28] MEDS ORDERED: DEXTROSE 5%-WATER - 50 ML IVPB ONE ×2 (03:20→09:42)
[2018-01-28] MEDS: INSULIN SLIDING SCALE (NOVOLOG) 1 VIAL SQ SCH ×2 (03:34→06:14)
[2018-01-28] MEDS: NOREPINEPHRINE BITARTRATE 8,000 MCG in SODIUM CHLORIDE 0.45% 992 ML IV SCH (06:10)
[2018-01-28] MEDS: HEPARIN NA (PORCINE) 5,000 UNITS/ML 1ML VIAL SQ SCH (06:14)
[2018-01-28 06:23] LABS: BASO % 0.5 % (0-2.0); EOS % 2.4 % (0-4.5); HEMATOCRIT 23.7 % (32.4-45.2); HEMOGLOBIN 7.5 GM/dL (10.7-15.3); LYMPH % 9.3 % (8-40); MCHC 31.4 g/dl (32.0-36.0); MEAN CELL VOLUME 79.5 fl (80-96); MEAN PLT VOLUME 8.9 fl (7.5-11.1); MONO % 10.8 % (3.8-10.2); PLATELET COUNT 210 K/MM3 (134-434); RBC 2.99 M/mm3 (3.60-5.2); RDW 17.5 % (11.6-15.6); WHITE BLOOD COUNT 7.4 K/mm3 (4.0-10.0)
[2018-01-28 06:34] LABS: ARTERIAL BLD GAS O2 SATURATION 98.1 % (90-98.9); ARTERIAL BLOOD GAS BASE EXCESS -1.4 meq/l (-2-2); ARTERIAL BLOOD GAS PCO2 58.8 mmHg (35-45); ARTERIAL BLOOD GAS pH 7.26 (7.35-7.45)
[2018-01-28 06:55] LABS: ALLENS TEST POSITIVE
[2018-01-28 07:40] LABS: ALK PHOS 932 U/L (45-117); AMYLASE 53 U/L (25-115); ANION GAP 11 MMOL/L (8-16); BILIRUBIN,TOTAL 0.3 mg/dL (0.2-1); BLOOD UREA NITROGEN 37 mg/dL (7-18); CALCIUM 7.7 mg/dL (8.5-10.1); CHLORIDE 102 mmol/L (98-107); CO2 27 mmol/L (21-32); CREATININE 4.5 mg/dL (0.55-1.3); GLUCOSE,RANDOM 99 mg/dL (74-106); LIPASE 143 U/L (73-393); MAGNESIUM 2.2 mg/dL (1.8-2.4); PHOSPHOROUS 5.9 mg/dL (2.5-4.9); POTASSIUM 3.5 mmol/L (3.5-5.1); SGOT/AST 195 U/L (15-37); SGPT/ALT 78 U/L (13-61); SODIUM 140 mmol/L (136-145); TOT PROT 6.8 g/dl (6.4-8.2)
[2018-01-28] MEDS ORDERED: DEXTROSE 5%-0.45% SALINE 1,000 ML IV SCH (08:45)
[2018-01-28] MEDS: MUPIROCIN 2% TOPICAL OINTMENT FOR DECOLONIZATION NS SCH (09:46)
--- NOTE | 2018-01-28 10:17 | ECHO ---
Name: THEA SINGH Exam:Adult Echocardiogram Study Date: 01/28/2018 07:37 AM Age: 27 yrs Reason For Study: s/p cardiac arrest Height: 66 in Weight: 165 lb BSA: 1.8 m2 MMode/2D Measurements & Calculations IVSd: 1.5 cm Ao root diam: 2.6 cm LVIDd: 3.2 cm LA dimension: 2.0 cm LVIDs: 2.0 cm ACS: 1.7 cm LVPWd: 1.4 cm IVSs: 1.5 cm LVPWs: 1.5 cm EDV(Teich): 41.6 ml ESV(Teich): 12.9 ml Doppler Measurements & Calculations MV E max oamyra: 74.5 cm/sec Ao V2 max: 178.1 cm/sec MV A max omayra: 47.4 cm/sec Ao max P.7 mmHg MV E/A: 1.6 Ao V2 mean: 117.6 cm/sec Ao mean P.6 mmHg Ao V2 VTI: 30.6 cm TR max omayra: 327.3 cm/sec PA V2 max: 137.2 cm/sec TR max P.0 mmHg PA max P.5 mmHg PA V2 mean: 86.8 cm/sec PA mean P.4 mmHg PA V2 VTI: 26.3 cm PI end-d omayra: 184.8 cm/sec Med Peak E' Omayra: 6.8 cm/sec Med E/e': 10.9 Lat Peak E' Omayra: 6.8 cm/sec Lat E/e': 10.9 Left Ventricle There is moderate concentric left ventricular hypertrophy. Left ventricular systolic function is norm al. Ejection Fraction = 50-55%. Right Ventricle The right ventricle is moderate to severely dilated. The right ventricular systolic function is moder ately reduced. Atria Normal left and right atrial size and function. Mitral Valve The mitral valve is grossly normal. There is no mitral valve stenosis. There is no mitral regurgitati on noted. Tricuspid Valve The tricuspid valve is not well visualized, but is grossly normal. There is moderate to severe tricus pid regurgitation. Right ventricular systolic pressure is elevated at 40-50mmHg. Aortic Valve The aortic valve is trileaflet. No hemodynamically significant valvular aortic stenosis. No aortic regurgitation is present. Pulmonic Valve The pulmonic valve is not well seen, but is grossly normal. There is no pulmonic valvular stenosis. M oderate pulmonic valvular regurgitation. Great Vessels The aortic root is normal size. Pericardium/Pleura There is no pericardial effusion. Interpretation Summary Left ventricular systolic function is normal. Ejection Fraction = 50-55%. There is moderate concentric left ventricular hypertrophy. The right ventricle is moderate to severely dilated. The right ventricular systolic function is moderately reduced. There is moderate to severe tricuspid regurgitation. Right ventricular systolic pressure is elevated at 40-50mmHg. Moderate pulmonic valvular regurgitation. MD Tyrone Whitley 01/28/2018 10:16 AM
[2018-01-28] MEDS ORDERED: INSULIN SLIDING SCALE (NOVOLOG) 1 VIAL SQ SCH (11:00)
--- NOTE | 2018-01-28 12:00 | PN ---
Teaching Attending Note Name of Resident: Vic Cummins ATTENDING PHYSICIAN STATEMENT I saw and evaluated the patient. I reviewed the resident's note and discussed the case with the resident. I agree with the resident's findings and plan as documented. SUBJECTIVE: Patient seen and examined in the ICU. Remains intubated. No sedation since yesterday and minimally responsive to noxious stimuli. Poor pupillary response. NE @ 20 mcq for hemodynamic support. CXR: ETT too high / some improvement in infiltrates Right > Left Intake & Output 01/25/18 01/26/18 01/27/18 01/28/18 23:59 23:59 23:59 23:59 Intake Total 1281.5 700 Output Total 300 200 Balance 981.5 500 Weight 155 lb 8 oz Last Vital Signs Temp Pulse Resp BP Pulse Ox 96.8 F L 97 H 20 152/79 100 01/28/18 10:55 01/28/18 10:55 01/28/18 11:01 01/28/18 10:55 01/28/18 11:01 Active Medications Chlorhexidine Gluconate (Hibiclens For Decolonization -) 1 applic TP HS ROSA MARIA Last Admin: 01/27/18 21:38 Dose: 1 applic Epoetin Abiel (Procrit -) 20,000 unit IVPUSH ONCE ONE Stop: 01/29/18 10:17 Heparin Sodium (Porcine) (Heparin -) 5,000 unit SQ TID ROSA MARIA Last Admin: 01/28/18 06:14 Dose: 5,000 unit Sodium Chloride (Normal Saline -) 1,000 mls @ 100 mls/hr IV ASDIR ROSA MARIA Last Admin: 01/27/18 09:32 Dose: 100 mls/hr Norepinephrine Bitartrate 8, (000 mcg/ Sodium Chloride) 1,000 mls @ 37.5 mls/ hr IV TITR ROSA MARIA; Protocol Last Titration: 01/28/18 06:17 Dose: 2 mcg/min, 15 mls/hr Piperacillin Sod/Tazobactam (Sod 2.25 gm/ Dextrose) 50 mls @ 100 mls/hr IVPB Q8H-IV ROSA MARIA; Protocol Last Admin: 01/28/18 09:46 Dose: 100 mls/hr Dextrose/Sodium Chloride (D5-1/2ns -) 1,000 mls @ 42 mls/hr IV ASDIR ROSA MARIA Last Admin: 01/28/18 09:46 Dose: 42 mls/hr Insulin Aspart (Novolog Vial Sliding Scale -) 1 vial SQ ACHS ROSA MARIA; Protocol Last Admin: 01/28/18 11:52 Dose: 4 units Mupirocin (Bactroban Ointment (For Decolonization) -) 1 applic NS BID ROSA MARIA Stop: 02/01/18 21:59 Last Admin: 01/28/18 09:46 Dose: 1 applic GENERAL: intubated , non responsive HEAD: NC/AT EYES: Fixed dilated pupils non reactive NECK: no JVD , supple LUNGS: Intubated, bilateral rhonchi. No wheezes, and no crackles. HEART: S1 and S2 without murmur, rub or gallop. ABDOMEN: Soft, not distended, normoactive bowel sounds, no guarding, MUSCULOSKELETAL:not able to assess UPPER EXTREMITIES: 2+ pulses, well-perfused. No cyanosis. LOWER EXTREMITIES: 2+ pulses+2 peripheral edema. NEUROLOGICAL: non responsive to verbal or pain stimuli Laboratory Results - last 24 hr 01/27/18 01/27/18 01/27/18 05:16 09:05 09:05 WBC RBC Hgb Hct MCV MCH MCHC RDW Plt Count MPV Absolute Neuts (auto) Neutrophils % Neutrophils % (Manual) 84.0 H Band Neutrophils % 12.0 Lymphocytes % Lymphocytes % (Manual) 0.0 L Monocytes % Monocytes % (Manual) 2 L D Eosinophils % Eosinophils % (Manual) 0.0 D Basophils % Basophils % (Manual) 0.0 Myelocytes % (Man) 0 Promyelocytes % (Man) 0 Blast Cells % (Manual) 0 Nucleated RBC % Metamyelocytes 2 D Hypochromia 1+ Platelet Estimate Normal Polychromasia 1+ Poikilocytosis 2+ Anisocytosis 1+ Microcytosis 0 Macrocytosis 0 Ovalocytes 1+ Acanthocytes (Spur) 1+ Puncture Site ABG pH ABG pCO2 at Pt Temp ABG pO2 at Pt Temp ABG HCO3 ABG O2 Sat (Measured) ABG O2 Content ABG Base Excess Izaiah Test O2 Delivery Device Oxygen Flow Rate Vent Mode Vent Rate PEEP Pressure Support Vent Sodium 133 L Potassium 5.5 H Chloride 99 Carbon Dioxide 14 L Anion Gap 20 H BUN 71 H Creatinine 7.5 H* Creat Clearance w eGFR 6.45 POC Glucometer > 400 Random Glucose 752 H* Lactic Acid Calcium 6.2 L* Phosphorus 8.3 H Magnesium 2.2 Total Bilirubin 0.6 AST 564 H ALT 126 H Alkaline Phosphatase 1083 H Creatine Kinase 208 H Creatine Kinase Index 2.4 CK-MB (CK-2) 5.0 H Troponin I 0.05 Total Protein 7.3 Albumin 2.3 L Total Amylase Lipase Beta HCG, Quant 8.0 Random Vancomycin 01/27/18 01/27/18 01/27/18 12:11 12:45 12:45 WBC RBC Hgb Hct MCV MCH MCHC RDW Plt Count MPV Absolute Neuts (auto) Neutrophils % Neutrophils % (Manual) Band Neutrophils % Lymphocytes % Lymphocytes % (Manual) Monocytes % Monocytes % (Manual) Eosinophils % Eosinophils % (Manual) Basophils % Basophils % (Manual) Myelocytes % (Man) Promyelocytes % (Man) Blast Cells % (Manual) Nucleated RBC % Metamyelocytes Hypochromia Platelet Estimate Polychromasia Poikilocytosis Anisocytosis Microcytosis Macrocytosis Ovalocytes Acanthocytes (Spur) Puncture Site ABG pH ABG pCO2 at Pt Temp ABG pO2 at Pt Temp ABG HCO3 ABG O2 Sat (Measured) ABG O2 Content ABG Base Excess Izaiah Test O2 Delivery Device Oxygen Flow Rate Vent Mode Vent Rate PEEP Pressure Support Vent Sodium 133 L Potassium 5.2 H Chloride 100 Carbon Dioxide 16 L Anion Gap 17 H BUN 75 H Creatinine 7.5 H* Creat Clearance w eGFR 6.45 POC Glucometer > 400 Random Glucose 668 H* Lactic Acid 3.8 H* Calcium 6.3 L* Phosphorus Magnesium Total Bilirubin AST ALT Alkaline Phosphatase Creatine Kinase Creatine Kinase Index CK-MB (CK-2) Troponin I Total Protein Albumin Total Amylase Lipase Beta HCG, Quant 7.7 Random Vancomycin 01/27/18 01/27/18 01/27/18 12:45 13:39 15:33 WBC RBC Hgb Hct MCV MCH MCHC RDW Plt Count MPV Absolute Neuts (auto) Neutrophils % Neutrophils % (Manual) Band Neutrophils % Lymphocytes % Lymphocytes % (Manual) Monocytes % Monocytes % (Manual) Eosinophils % Eosinophils % (Manual) Basophils % Basophils % (Manual) Myelocytes % (Man) Promyelocytes % (Man) Blast Cells % (Manual) Nucleated RBC % Metamyelocytes Hypochromia Platelet Estimate Polychromasia Poikilocytosis Anisocytosis Microcytosis Macrocytosis Ovalocytes Acanthocytes (Spur) Puncture Site ABG pH ABG pCO2 at Pt Temp ABG pO2 at Pt Temp ABG HCO3 ABG O2 Sat (Measured) ABG O2 Content ABG Base Excess Izaiah Test O2 Delivery Device Oxygen Flow Rate Vent Mode Vent Rate PEEP Pressure Support Vent Sodium Potassium Chloride Carbon Dioxide Anion Gap BUN Creatinine Creat Clearance w eGFR POC Glucometer > [phone] Random Glucose Lactic Acid Calcium Phosphorus Magnesium Total Bilirubin AST ALT Alkaline Phosphatase Creatine Kinase Creatine Kinase Index CK-MB (CK-2) Troponin I Total Protein Albumin Total Amylase Lipase Beta HCG, Quant Cancelled Random Vancomycin 01/27/18 01/27/18 01/27/18 16:00 16:40 17:05 WBC RBC Hgb Hct MCV MCH MCHC RDW Plt Count MPV Absolute Neuts (auto) Neutrophils % Neutrophils % (Manual) Band Neutrophils % Lymphocytes % Lymphocytes % (Manual) Monocytes % Monocytes % (Manual) Eosinophils % Eosinophils % (Manual) Basophils % Basophils % (Manual) Myelocytes % (Man) Promyelocytes % (Man) Blast Cells % (Manual) Nucleated RBC % Metamyelocytes Hypochromia Platelet Estimate Polychromasia Poikilocytosis Anisocytosis Microcytosis Macrocytosis Ovalocytes Acanthocytes (Spur) Puncture Site Left radial ABG pH 7.20 L* D ABG pCO2 at Pt Temp 68.2 H* D ABG pO2 at Pt Temp 319.0 H* ABG HCO3 25.4 ABG O2 Sat (Measured) 99.5 H ABG O2 Content 12.0 L ABG Base Excess -2.7 L Izaiah Test Positive O2 Delivery Device Mech vent Oxygen Flow Rate 100% Vent Mode A/c Vent Rate 12 PEEP 5.0 Pressure Support Vent 350 Sodium 136 Potassium 3.3 L Chloride 98 Carbon Dioxide 28 Anion Gap 10 BUN 28 H Creatinine 3.4 H Creat Clearance w eGFR 16.08 POC Glucometer [phone] Random Glucose 274 H Lactic Acid Calcium 7.4 L Phosphorus 4.0 Magnesium 1.7 L Total Bilirubin AST ALT Alkaline Phosphatase Creatine Kinase Creatine Kinase Index CK-MB (CK-2) Troponin I Total Protein Albumin Total Amylase Lipase Beta HCG, Quant Random Vancomycin 01/27/18 01/27/18 01/27/18 17:41 21:28 22:00 WBC RBC Hgb Hct MCV MCH MCHC RDW Plt Count MPV Absolute Neuts (auto) Neutrophils % Neutrophils % (Manual) Band Neutrophils % Lymphocytes % Lymphocytes % (Manual) Monocytes % Monocytes % (Manual) Eosinophils % Eosinophils % (Manual) Basophils % Basophils % (Manual) Myelocytes % (Man) Promyelocytes % (Man) Blast Cells % (Manual) Nucleated RBC % Metamyelocytes Hypochromia Platelet Estimate Polychromasia Poikilocytosis Anisocytosis Microcytosis Macrocytosis Ovalocytes Acanthocytes (Spur) Puncture Site ABG pH ABG pCO2 at Pt Temp ABG pO2 at Pt Temp ABG HCO3 ABG O2 Sat (Measured) ABG O2 Content ABG Base Excess Izaiah Test O2 Delivery Device Oxygen Flow Rate Vent Mode Vent Rate PEEP Pressure Support Vent Sodium 139 Potassium 4.4 Chloride 100 Carbon Dioxide 25 Anion Gap 14 BUN 36 H Creatinine 4.2 H Creat Clearance w eGFR 12.60 POC Glucometer 253.76894 342.93091 Random Glucose 305 H* Lactic Acid Calcium 7.3 L Phosphorus Magnesium Total Bilirubin AST ALT Alkaline Phosphatase Creatine Kinase Creatine Kinase Index CK-MB (CK-2) Troponin I Total Protein Albumin Total Amylase Lipase Beta HCG, Quant Random Vancomycin 01/28/18 01/28/18 01/28/18 03:29 05:30 05:30 WBC RBC Hgb Hct MCV MCH MCHC RDW Plt Count MPV Absolute Neuts (auto) Neutrophils % Neutrophils % (Manual) Band Neutrophils % Lymphocytes % Lymphocytes % (Manual) Monocytes % Monocytes % (Manual) Eosinophils % Eosinophils % (Manual) Basophils % Basophils % (Manual) Myelocytes % (Man) Promyelocytes % (Man) Blast Cells % (Manual) Nucleated RBC % Metamyelocytes Hypochromia Platelet Estimate Polychromasia Poikilocytosis Anisocytosis Microcytosis Macrocytosis Ovalocytes Acanthocytes (Spur) Puncture Site ABG pH ABG pCO2 at Pt Temp ABG pO2 at Pt Temp ABG HCO3 ABG O2 Sat (Measured) ABG O2 Content ABG Base Excess Izaiah Test O2 Delivery Device Oxygen Flow Rate Vent Mode Vent Rate PEEP Pressure Support Vent Sodium Potassium Chloride Carbon Dioxide Anion Gap BUN Creatinine Creat Clearance w eGFR POC Glucometer 161.73264 Random Glucose Lactic Acid Calcium Phosphorus Magnesium Total Bilirubin AST ALT Alkaline Phosphatase Creatine Kinase Creatine Kinase Index CK-MB (CK-2) Troponin I Total Protein Albumin Total Amylase Cancelled Lipase Cancelled Beta HCG, Quant Random Vancomycin 6.4 L 1001/28/18 01/28/18 05:30 05:30 05:54 WBC 7.4 RBC 2.99 L Hgb 7.5 L Hct 23.7 L D MCV 79.5 L MCH 25.0 L MCHC 31.4 L RDW 17.5 H Plt Count 210 D MPV 8.9 Absolute Neuts (auto) 5.7 Neutrophils % 77.0 Neutrophils % (Manual) Band Neutrophils % Lymphocytes % 9.3 D Lymphocytes % (Manual) Monocytes % 10.8 H D Monocytes % (Manual) Eosinophils % 2.4 D Eosinophils % (Manual) Basophils % 0.5 Basophils % (Manual) Myelocytes % (Man) Promyelocytes % (Man) Blast Cells % (Manual) Nucleated RBC % 0 Metamyelocytes Hypochromia Platelet Estimate Polychromasia Poikilocytosis Anisocytosis Microcytosis Macrocytosis Ovalocytes Acanthocytes (Spur) Puncture Site ABG pH ABG pCO2 at Pt Temp ABG pO2 at Pt Temp ABG HCO3 ABG O2 Sat (Measured) ABG O2 Content ABG Base Excess Izaiah Test O2 Delivery Device Oxygen Flow Rate Vent Mode Vent Rate PEEP Pressure Support Vent Sodium 140 Potassium 3.5 Chloride 102 Carbon Dioxide 27 Anion Gap 11 BUN 37 H Creatinine 4.5 H Creat Clearance w eGFR 11.64 POC Glucometer 132.85764 Random Glucose 99 Lactic Acid Calcium 7.7 L Phosphorus 5.9 H Magnesium 2.2 Total Bilirubin 0.3 AST 195 H ALT 78 H Alkaline Phosphatase 932 H Creatine Kinase Creatine Kinase Index CK-MB (CK-2) Troponin I 0.11 H Total Protein 6.8 Albumin 2.0 L Total Amylase 53 Lipase 143 Beta HCG, Quant 5.9 Random Vancomycin 01/28/18 01/28/18 06:00 11:38 WBC RBC Hgb Hct MCV MCH MCHC RDW Plt Count MPV Absolute Neuts (auto) Neutrophils % Neutrophils % (Manual) Band Neutrophils % Lymphocytes % Lymphocytes % (Manual) Monocytes % Monocytes % (Manual) Eosinophils % Eosinophils % (Manual) Basophils % Basophils % (Manual) Myelocytes % (Man) Promyelocytes % (Man) Blast Cells % (Manual) Nucleated RBC % Metamyelocytes Hypochromia Platelet Estimate Polychromasia Poikilocytosis Anisocytosis Microcytosis Macrocytosis Ovalocytes Acanthocytes (Spur) Puncture Site Right radial ABG pH 7.26 L ABG pCO2 at Pt Temp 58.8 H ABG pO2 at Pt Temp 120.0 H D ABG HCO3 25.4 ABG O2 Sat (Measured) 98.1 ABG O2 Content 11.3 L ABG Base Excess -1.4 Izaiah Test Positive O2 Delivery Device Vent Oxygen Flow Rate 60 Vent Mode Vent Rate 12 PEEP 5.0 Pressure Support Vent Sodium Potassium Chloride Carbon Dioxide Anion Gap BUN Creatinine Creat Clearance w eGFR POC Glucometer [phone] Random Glucose Lactic Acid Calcium Phosphorus Magnesium Total Bilirubin AST ALT Alkaline Phosphatase Creatine Kinase Creatine Kinase Index CK-MB (CK-2) Troponin I Total Protein Albumin Total Amylase Lipase Beta HCG, Quant Random Vancomycin ASSESSMENT/PLAN: S/P cardiac arrest (25 minutes to ROSC) Acute Respiratory Failure ESRD on HD TIW DKA DM HTN Anemia Previous PNA Leukocytosis AC Mode of vent Hold all sedation ABX coverage Follow Neuro exam HD per Renal NE for hemodynamic support Strict I & O Glycemic control ICU monitoring Need to discuss with family GOC Dr Ballesteros Critical care time spent in reviewing chart, evaluating patient and formulating plan - 36 minutes.
--- NOTE | 2018-01-28 12:21 | PN ---
Progress Note (short form) - Note Progress Note: s: remains intubated on pressors, no overnight events o: Vital Signs Temp 96.8 F L 01/28/18 10:55 Pulse 97 H 01/28/18 10:55 Resp 20 01/28/18 11:01 BP 152/79 01/28/18 10:55 Pulse Ox 100 01/28/18 11:01 Intake & Output 01/27/18 01/28/18 01/28/18 23:59 11:59 23:59 Intake Total 1281.5 700 Output Total 300 200 Balance 981.5 500 Weight 155 lb 8 oz Intake: IV 1131.5 700 NOVOLIN R VIAL *For 31.5 IVPUSH or IV DRIP Only* 100 UNITS In Normal Saline - 99 ml @ 7 UNITS/ HR 7 mls/hr IVPB TITR ROSA MARIA Rx#:[id number] Normal Saline - 1,000 ml 1100 700 @ 100 mls/hr IV ASDIR ROSA MARIA Rx#:[id number] IVPB 150 Oral 0 Output: Gastric Drainage 300 200 Urine 0 Void 0 Other: Voiding Method Diaper Diaper Bowel Movement 0 Height 5 ft 6 in Body Mass Index (BMI) 25.0 Weight Measurement Method Built in Bedscale intubated, no jvd rrr s1s2 no mrg ctabl anteriorly, vented non responsive trace le edema, chronic stasis changes of skin abd nd pos bs pos dp pt no jaundice diaphoresis Laboratory Last Values WBC 7.4 K/mm3 (4.0-10.0) 01/28/18 05:30 RBC 2.99 M/mm3 (3.60-5.2) L 01/28/18 05:30 Hgb 7.5 GM/dL (10.7-15.3) L 01/28/18 05:30 Hct 23.7 % (32.4-45.2) L D 01/28/18 05:30 MCV 79.5 fl (80-96) L 01/28/18 05:30 MCH 25.0 pg (25.7-33.7) L 01/28/18 05:30 MCHC 31.4 g/dl (32.0-36.0) L 01/28/18 05:30 RDW 17.5 % (11.6-15.6) H 01/28/18 05:30 Plt Count 210 K/MM3 (134-434) D 01/28/18 05:30 MPV 8.9 fl (7.5-11.1) 01/28/18 05:30 Absolute Neuts (auto) 5.7 K/mm3 (1.5-8.0) 01/28/18 05:30 Neutrophils % 77.0 % (42.8-82.8) 01/28/18 05:30 Neutrophils % (Manual) 84.0 % (42.8-82.8) H 01/27/18 09:05 Band Neutrophils % 12.0 % 01/27/18 09:05 Lymphocytes % 9.3 % (8-40) D 01/28/18 05:30 Lymphocytes % (Manual) 0.0 % (8-40) L 01/27/18 09:05 Monocytes % 10.8 % (3.8-10.2) H D 01/28/18 05:30 Monocytes % (Manual) 2 % (3.8-10.2) L D 01/27/18 09:05 Eosinophils % 2.4 % (0-4.5) D 01/28/18 05:30 Eosinophils % (Manual) 0.0 % (0-4.5) D 01/27/18 09:05 Basophils % 0.5 % (0-2.0) 01/28/18 05:30 Basophils % (Manual) 0.0 % (0-2.0) 01/27/18 09:05 Myelocytes % (Man) 0 % (0-2) 01/27/18 09:05 Promyelocytes % (Man) 0 % (0-2) 01/27/18 09:05 Blast Cells % (Manual) 0 % (0-0) 01/27/18 09:05 Nucleated RBC % 0 % (0-0) 01/28/18 05:30 Metamyelocytes 2 % (0-2) D 01/27/18 09:05 Hypochromia 1+ 01/27/18 09:05 Platelet Estimate Normal 01/27/18 09:05 Polychromasia 1+ 01/27/18 09:05 Poikilocytosis 2+ 01/27/18 09:05 Anisocytosis 1+ 01/27/18 09:05 Microcytosis 0 01/27/18 09:05 Macrocytosis 0 01/27/18 09:05 Ovalocytes 1+ 01/27/18 09:05 Acanthocytes (Spur) 1+ 01/27/18 09:05 PT with INR 15.90 SEC (9.7-13.0) H 01/27/18 09:05 INR 1.34 (0.83-1.09) H 01/27/18 09:05 PTT (Actin FS) 28.2 SECONDS (25.2-36.5) 01/27/18 09:05 Anticoagulation Therapy No Result Required. 01/27/18 08:50 Puncture Site Right radial 01/28/18 06:00 ABG pH 7.26 (7.35-7.45) L 01/28/18 06:00 ABG pCO2 at Pt Temp 58.8 mmHg (35-45) H 01/28/18 06:00 ABG pO2 at Pt Temp 120.0 mmHg (80-100) H D 01/28/18 06:00 ABG HCO3 25.4 meq/L (22-26) 01/28/18 06:00 ABG O2 Sat (Measured) 98.1 % (90-98.9) 01/28/18 06:00 ABG O2 Content 11.3 % vol (15-22) L 01/28/18 06:00 ABG Base Excess -1.4 meq/l (-2-2) 01/28/18 06:00 Izaiah Test Positive 01/28/18 06:00 VBG pH 6.75 (7.32-7.42) L* 01/27/18 05:18 POC VBG pCO2 90.5 mmHg (38-52) H* D 01/27/18 05:18 POC VBG pO2 80.4 mmHg (28-48) H D 01/27/18 05:18 Mixed VBG HCO3 11.9 meq/L (19-25) L* 01/27/18 05:18 Carboxyhemoglobin 1.6 gm% (0.5-2.0) 01/27/18 07:00 Methemoglobin 0.4 % (0.4-1.5) 01/27/18 07:00 O2 Delivery Device Vent 01/28/18 06:00 Oxygen Flow Rate 60 01/28/18 06:00 Vent Mode A/c 01/27/18 17:05 Vent Rate 12 01/28/18 06:00 Mechanical Rate No Result Required. 01/27/18 08:50 PEEP 5.0 cmH2O 01/28/18 06:00 Pressure Support Vent 350 01/27/18 17:05 Sodium 140 mmol/L (136-145) 01/28/18 05:30 Potassium 3.5 mmol/L (3.5-5.1) 01/28/18 05:30 Chloride 102 mmol/L (98-107) 01/28/18 05:30 Carbon Dioxide 27 mmol/L (21-32) 01/28/18 05:30 Anion Gap 11 MMOL/L (8-16) 01/28/18 05:30 BUN 37 mg/dL (7-18) H 01/28/18 05:30 Creatinine 4.5 mg/dL (0.55-1.3) H 01/28/18 05:30 Creat Clearance w eGFR 11.64 (>60) 01/28/18 05:30 POC Glucometer 249.81053 UNITS (80-120) 01/28/18 11:38 Random Glucose 99 mg/dL (74-106) 01/28/18 05:30 Hemoglobin A1c % 10.9 % (4.2-6.3) H 01/27/18 09:05 Lactic Acid 3.8 mmol/L (0.4-2.0) H* 01/27/18 12:45 Calcium 7.7 mg/dL (8.5-10.1) L 01/28/18 05:30 Phosphorus 5.9 mg/dL (2.5-4.9) H 01/28/18 05:30 Magnesium 2.2 mg/dL (1.8-2.4) 01/28/18 05:30 Total Bilirubin 0.3 mg/dL (0.2-1) 01/28/18 05:30 AST 195 U/L (15-37) H 01/28/18 05:30 ALT 78 U/L (13-61) H 01/28/18 05:30 Alkaline Phosphatase 932 U/L (45-117) H 01/28/18 05:30 Creatine Kinase 208 IU/L (26-192) H 01/27/18 09:05 Creatine Kinase Index 2.4 % (0.0-5.0) 01/27/18 09:05 CK-MB (CK-2) 5.0 ng/mL (0.5-3.6) H 01/27/18 09:05 Troponin I 0.11 ng/ml (0.00-0.05) H 01/28/18 05:30 Total Protein 6.8 g/dl (6.4-8.2) 01/28/18 05:30 Albumin 2.0 g/dl (3.4-5.0) L 01/28/18 05:30 Total Amylase 53 U/L (25-115) 01/28/18 05:30 Lipase 143 U/L (73-393) 01/28/18 05:30 Beta HCG, Quant 5.9 mIU/ml 01/28/18 05:30 Random Vancomycin 6.4 ug/ml (18-26) L 01/28/18 05:30 ecg: sr, nl intervals, no ischemic changes cxr: infiltrates/chf echo 12/2016: mod lvh, nl lv/rv, mod tr, mod phtn, mild pr, echo 12/2017: nl lvef, mild lvh, iasa, mild tr, mild phtn echo 01/2018: mod lvh, nl lvef, rv mod dilated, rv mod reduced fcn, mod-sev tr, mod pr, rvsp 40-50 tele: sr est cct> 35 mins a/p: 27 f hx esrd on hd, htn, dm, pe/dvt, left atrial myxoma s/p resection, left atrial thrombus in past, here with ams. pea arrest, resp failure, hypotension: -possibly precipitated by dka, infection -echo with nl lvef but RV fcn is decreased and rv is dilated, which is new compared to prior echo last month. Pt has hx of PE so if suspected here, the echo findings may be consistent with this. -trop unremarkable x3, no signs acs -ecg unremarkable -cont abx, insulin for dka -tele, icu care -remains on pressors s/p code, titrate off as bp allows -vent management per crit care esrd: -cont hd per renal. htn: -hypotensive here, monitor bp, wean pressor as possible left atrial myxoma: -s/p resection, no signs recurrence on echo here
--- NOTE | 2018-01-28 13:40 | PN ---
Physical Exam: SUBJECTIVE: Patient seen and examined at Bedside. I spoke with the parents at length about the patient's condition and situation. Not much has changed since yesterday. She remains intubated and sedated. She had an episode of hypotension overnight which minorly responded to levophed. Parents expressed understanding of the situation, as well as tremendous sadness , and agreed to make her DNI. DNI for was signed by parents and added to chart. OBJECTIVE: Vital Signs Period Temp Pulse Resp BP Sys/Ames Pulse Ox Last 24 Hr 94.1 F-96.8 F 68-97 12-20 86-166/48-101 100-100 GENERAL: Intubated, does not respond to painful stimuli. HEAD: NC/AT EYES: Fixed - mid dilated pupils. Non-reactive to light. EARS, NOSE, THROAT: Ears normal, nares patent. NECK: No JVD or masses. Trachea midline. LUNGS: Intubated. HEART: Regular rate and rhythm, normal S1 and S2 without murmur, rub or gallop. ABDOMEN: Soft, nontender, not distended, normoactive bowel sounds, no guarding, no rebound, no masses. No hepatomegaly or splenomegaly. MUSCULOSKELETAL: Normal range of motion at all joints. No bony deformities or tenderness. No CVA tenderness. UPPER EXTREMITIES: 1+ pulses, warm, well-perfused. No cyanosis. No clubbing. No peripheral edema. LOWER EXTREMITIES: 1+ pulses, warm, well-perfused. No peripheral edema. SKIN: cool, dry. Laboratory Results - last 24 hr 01/27/18 01/27/18 01/27/18 05:16 12:11 12:45 WBC RBC Hgb Hct MCV MCH MCHC RDW Plt Count MPV Absolute Neuts (auto) Neutrophils % Lymphocytes % Monocytes % Eosinophils % Basophils % Nucleated RBC % Puncture Site ABG pH ABG pCO2 at Pt Temp ABG pO2 at Pt Temp ABG HCO3 ABG O2 Sat (Measured) ABG O2 Content ABG Base Excess Izaiah Test O2 Delivery Device Oxygen Flow Rate Vent Mode Vent Rate PEEP Pressure Support Vent Sodium Potassium Chloride Carbon Dioxide Anion Gap BUN Creatinine Creat Clearance w eGFR POC Glucometer > 400 > 400 Random Glucose Lactic Acid 3.8 H* Calcium Phosphorus Magnesium Total Bilirubin AST ALT Alkaline Phosphatase Troponin I Total Protein Albumin Total Amylase Lipase Beta HCG, Quant Random Vancomycin 01/27/18 01/27/18 01/27/18 12:45 13:39 15:33 WBC RBC Hgb Hct MCV MCH MCHC RDW Plt Count MPV Absolute Neuts (auto) Neutrophils % Lymphocytes % Monocytes % Eosinophils % Basophils % Nucleated RBC % Puncture Site ABG pH ABG pCO2 at Pt Temp ABG pO2 at Pt Temp ABG HCO3 ABG O2 Sat (Measured) ABG O2 Content ABG Base Excess Izaiah Test O2 Delivery Device Oxygen Flow Rate Vent Mode Vent Rate PEEP Pressure Support Vent Sodium 133 L Potassium 5.2 H Chloride 100 Carbon Dioxide 16 L Anion Gap 17 H BUN 75 H Creatinine 7.5 H* Creat Clearance w eGFR 6.45 POC Glucometer > [phone] Random Glucose 668 H* Lactic Acid Calcium 6.3 L* Phosphorus Magnesium Total Bilirubin AST ALT Alkaline Phosphatase Troponin I Total Protein Albumin Total Amylase Lipase Beta HCG, Quant 7.7 Random Vancomycin 01/27/18 01/27/18 01/27/18 16:00 16:40 17:05 WBC RBC Hgb Hct MCV MCH MCHC RDW Plt Count MPV Absolute Neuts (auto) Neutrophils % Lymphocytes % Monocytes % Eosinophils % Basophils % Nucleated RBC % Puncture Site Left radial ABG pH 7.20 L* D ABG pCO2 at Pt Temp 68.2 H* D ABG pO2 at Pt Temp 319.0 H* ABG HCO3 25.4 ABG O2 Sat (Measured) 99.5 H ABG O2 Content 12.0 L ABG Base Excess -2.7 L Izaiah Test Positive O2 Delivery Device Mech vent Oxygen Flow Rate 100% Vent Mode A/c Vent Rate 12 PEEP 5.0 Pressure Support Vent 350 Sodium 136 Potassium 3.3 L Chloride 98 Carbon Dioxide 28 Anion Gap 10 BUN 28 H Creatinine 3.4 H Creat Clearance w eGFR 16.08 POC Glucometer 296.92111 Random Glucose 274 H Lactic Acid Calcium 7.4 L Phosphorus 4.0 Magnesium 1.7 L Total Bilirubin AST ALT Alkaline Phosphatase Troponin I Total Protein Albumin Total Amylase Lipase Beta HCG, Quant Random Vancomycin 01/27/18 01/27/18 01/27/18 17:41 21:28 22:00 WBC RBC Hgb Hct MCV MCH MCHC RDW Plt Count MPV Absolute Neuts (auto) Neutrophils % Lymphocytes % Monocytes % Eosinophils % Basophils % Nucleated RBC % Puncture Site ABG pH ABG pCO2 at Pt Temp ABG pO2 at Pt Temp ABG HCO3 ABG O2 Sat (Measured) ABG O2 Content ABG Base Excess Izaiah Test O2 Delivery Device Oxygen Flow Rate Vent Mode Vent Rate PEEP Pressure Support Vent Sodium 139 Potassium 4.4 Chloride 100 Carbon Dioxide 25 Anion Gap 14 BUN 36 H Creatinine 4.2 H Creat Clearance w eGFR 12.60 POC Glucometer 253.34114 342.68783 Random Glucose 305 H* Lactic Acid Calcium 7.3 L Phosphorus Magnesium Total Bilirubin AST ALT Alkaline Phosphatase Troponin I Total Protein Albumin Total Amylase Lipase Beta HCG, Quant Random Vancomycin 01/28/18 01/28/18 01/28/18 03:29 05:30 05:30 WBC RBC Hgb Hct MCV MCH MCHC RDW Plt Count MPV Absolute Neuts (auto) Neutrophils % Lymphocytes % Monocytes % Eosinophils % Basophils % Nucleated RBC % Puncture Site ABG pH ABG pCO2 at Pt Temp ABG pO2 at Pt Temp ABG HCO3 ABG O2 Sat (Measured) ABG O2 Content ABG Base Excess Izaiah Test O2 Delivery Device Oxygen Flow Rate Vent Mode Vent Rate PEEP Pressure Support Vent Sodium Potassium Chloride Carbon Dioxide Anion Gap BUN Creatinine Creat Clearance w eGFR POC Glucometer 161.53599 Random Glucose Lactic Acid Calcium Phosphorus Magnesium Total Bilirubin AST ALT Alkaline Phosphatase Troponin I Total Protein Albumin Total Amylase Cancelled Lipase Cancelled Beta HCG, Quant Random Vancomycin 6.4 L 01/28/18 01/28/18 01/28/18 05:30 05:30 05:54 WBC 7.4 RBC 2.99 L Hgb 7.5 L Hct 23.7 L D MCV 79.5 L MCH 25.0 L MCHC 31.4 L RDW 17.5 H Plt Count 210 D MPV 8.9 Absolute Neuts (auto) 5.7 Neutrophils % 77.0 Lymphocytes % 9.3 D Monocytes % 10.8 H D Eosinophils % 2.4 D Basophils % 0.5 Nucleated RBC % 0 Puncture Site ABG pH ABG pCO2 at Pt Temp ABG pO2 at Pt Temp ABG HCO3 ABG O2 Sat (Measured) ABG O2 Content ABG Base Excess Izaiah Test O2 Delivery Device Oxygen Flow Rate Vent Mode Vent Rate PEEP Pressure Support Vent Sodium 140 Potassium 3.5 Chloride 102 Carbon Dioxide 27 Anion Gap 11 BUN 37 H Creatinine 4.5 H Creat Clearance w eGFR 11.64 POC Glucometer 132.27702 Random Glucose 99 Lactic Acid Calcium 7.7 L Phosphorus 5.9 H Magnesium 2.2 Total Bilirubin 0.3 AST 195 H ALT 78 H Alkaline Phosphatase 932 H Troponin I 0.11 H Total Protein 6.8 Albumin 2.0 L Total Amylase 53 Lipase 143 Beta HCG, Quant 5.9 Random Vancomycin 01/28/18 01/28/18 06:00 11:38 WBC RBC Hgb Hct MCV MCH MCHC RDW Plt Count MPV Absolute Neuts (auto) Neutrophils % Lymphocytes % Monocytes % Eosinophils % Basophils % Nucleated RBC % Puncture Site Right radial ABG pH 7.26 L ABG pCO2 at Pt Temp 58.8 H ABG pO2 at Pt Temp 120.0 H D ABG HCO3 25.4 ABG O2 Sat (Measured) 98.1 ABG O2 Content 11.3 L ABG Base Excess -1.4 Izaiah Test Positive O2 Delivery Device Vent Oxygen Flow Rate 60 Vent Mode Vent Rate 12 PEEP 5.0 Pressure Support Vent Sodium Potassium Chloride Carbon Dioxide Anion Gap BUN Creatinine Creat Clearance w eGFR POC Glucometer 249.33743 Random Glucose Lactic Acid Calcium Phosphorus Magnesium Total Bilirubin AST ALT Alkaline Phosphatase Troponin I Total Protein Albumin Total Amylase Lipase Beta HCG, Quant Random Vancomycin Active Medications Generic Name Dose Route Start Last Admin Trade Name Freq PRN Reason Stop Dose Admin Chlorhexidine Gluconate 1 applic 01/27/18 22:00 01/27/18 21:38 Hibiclens For Decolonization - TP 1 applic HS ROSA MARIA Administration Epoetin Abiel 20,000 unit 01/29/18 10:16 Procrit - IVPUSH 01/29/18 10:17 ONCE ONE Heparin Sodium (Porcine) 5,000 unit 01/27/18 14:00 01/28/18 06:14 Heparin - SQ 5,000 unit TID ROSA MARIA Administration Sodium Chloride 1,000 mls @ 100 mls/hr 01/27/18 08:45 01/27/18 09:32 Normal Saline - IV 100 mls/hr ASDIR ROSA MARIA Administration Norepinephrine Bitartrate 8, 1,000 mls @ 37.5 mls/hr 01/27/18 15:33 01/28/18 06:17 000 mcg/ Sodium Chloride IV 2 mcg/min TITR ROSA MARIA 15 mls/hr Titration Protocol 5 MCG/MIN Piperacillin Sod/Tazobactam 50 mls @ 100 mls/hr 01/27/18 18:00 01/28/18 09:46 Sod 2.25 gm/ Dextrose IVPB 100 mls/hr Q8H-IV ROSA MARIA Administration Protocol Dextrose/Sodium Chloride 1,000 mls @ 42 mls/hr 01/28/18 08:45 01/28/18 09:46 D5-1/2ns - IV 42 mls/hr ASDIR ROSA MARIA Administration Insulin Aspart 1 vial 01/28/18 11:00 01/28/18 11:52 Novolog Vial Sliding Scale - SQ 4 units ACHS ROSA MARIA Administration Protocol Mupirocin 1 applic 01/27/18 22:00 01/28/18 09:46 Bactroban Ointment (For Decolonization) - NS 02/01/18 21:59 1 applic BID ROSA MARIA Administration ASSESSMENT/PLAN: Assessment: 27 f hx esrd, htn, dm, pe/dvt, left atrial myxoma s/p resection, left atrial thrombus in past, here with ams. Coded, had PEA, ROSC. Pupils are mid-dilated and not responsive. Patient does not respond to painful stimuli. Hypotensive, with mild response to levophed. Patient's Prognosis is very poor. Parent's signed DNR today. Plan: Cardiovascular: - Levophed for BP control. - frequent BP checks - Patient to receive ECHO tomorrow Renal: - received dialysis yesterday. DKA: - Resolved - Daily BMP checks. F/E/N: - NS @ 100 cc/hr - NPO Prophylaxis: - DVT: Heparin - GI: Protonix Dispo: - DNR - Patient to remain in ICU Visit type - Emergency Visit Emergency Visit: Yes ED Registration Date: 01/27/18 Care time: The patient presented to the Emergency Department on the above date and was hospitalized for further evaluation of their emergent condition. - New Patient This patient is new to me today: No - Critical Care Critical Care patient: Yes Total Critical Care Time (in minutes): 36 Critical Care Statement: The care of this patient involved high complexity decision making to prevent further life threatening deterioration of the patient 's condition and/or to evaluate & treat vital organ system(s) failure or risk of failure.
[2018-01-28 13:54] VITALS: TEMP 97.6
--- NOTE | 2018-01-28 14:04 | PN ---
Progress Note, Physician Chief Complaint: The patient seen in the ICU. Remains intubated, on vent support. No response to painful stimuli. Family visiting. Bp remains fluctuant.On Levophed. - Current Medication List Current Medications: Active Medications Chlorhexidine Gluconate (Hibiclens For Decolonization -) 1 applic TP HS ROSA MARIA Last Admin: 01/27/18 21:38 Dose: 1 applic Epoetin Abiel (Procrit -) 20,000 unit IVPUSH ONCE ONE Stop: 01/29/18 10:17 Heparin Sodium (Porcine) (Heparin -) 5,000 unit SQ TID ROSA MARIA Last Admin: 01/28/18 06:14 Dose: 5,000 unit Sodium Chloride (Normal Saline -) 1,000 mls @ 100 mls/hr IV ASDIR ROSA MARIA Last Admin: 01/27/18 09:32 Dose: 100 mls/hr Norepinephrine Bitartrate 8, (000 mcg/ Sodium Chloride) 1,000 mls @ 37.5 mls/ hr IV TITR ROSA MARIA; Protocol Last Titration: 01/28/18 06:17 Dose: 2 mcg/min, 15 mls/hr Piperacillin Sod/Tazobactam (Sod 2.25 gm/ Dextrose) 50 mls @ 100 mls/hr IVPB Q8H-IV ROSA MARIA; Protocol Last Admin: 01/28/18 09:46 Dose: 100 mls/hr Dextrose/Sodium Chloride (D5-1/2ns -) 1,000 mls @ 42 mls/hr IV ASDIR ROSA MARIA Last Admin: 01/28/18 09:46 Dose: 42 mls/hr Insulin Aspart (Novolog Vial Sliding Scale -) 1 vial SQ ACHS ROSA MARIA; Protocol Last Admin: 01/28/18 11:52 Dose: 4 units Mupirocin (Bactroban Ointment (For Decolonization) -) 1 applic NS BID ROSA MARIA Stop: 02/01/18 21:59 Last Admin: 01/28/18 09:46 Dose: 1 applic - Objective Vital Signs: Vital Signs Temperature 97.6 F 01/28/18 12:00 Pulse Rate 98 H 01/28/18 12:00 Respiratory Rate 15 01/28/18 12:00 Blood Pressure 129/62 01/28/18 12:00 O2 Sat by Pulse Oximetry (%) 100 01/28/18 11:01 Eyes: Yes: Other (No pupillary responses.) Neck: Yes: Supple Cardiovascular: Yes: Tachycardia, S1, S2 Respiratory: Yes: Intubated, Mechanically Ventilated, Rhonchi Gastrointestinal: Yes: Soft, Hypoactive Bowel Sounds Extremities: Yes: Other (adan brawny induration of the lower extremities) Neurological: Yes: Unresponsive Labs: CBC, BMP 01/28/18 05:30 01/28/18 05:30 INR, PTT INR 1.34 (0.83-1.09) H 01/27/18 09:05 Problem List - Problems (1) ESRD (end stage renal disease) Code(s): N18.6 - END STAGE RENAL DISEASE (2) Anemia Code(s): D64.9 - ANEMIA, UNSPECIFIED Qualifiers: Anemia type: due to chronic kidney disease Chronic kidney disease stage: on chronic dialysis Qualified Code(s): N18.6 - End stage renal disease; D63.1 - Anemia in chronic kidney disease; Z99.2 - Dependence on renal dialysis (3) Diabetes mellitus type 1 with peripheral artery disease Code(s): E10.51 - TYPE 1 DIABETES W DIABETIC PERIPHERAL ANGIOPATH W/O GANGRENE (4) Fluid overload Code(s): E87.70 - FLUID OVERLOAD, UNSPECIFIED Qualifiers: Hypervolemia type: other Qualified Code(s): E87.79 - Other fluid overload (5) Diabetes mellitus, insulin dependent (IDDM), uncontrolled Code(s): E10.65 - TYPE 1 DIABETES MELLITUS WITH HYPERGLYCEMIA (6) ESRD (end stage renal disease) on dialysis Code(s): N18.6 - END STAGE RENAL DISEASE; Z99.2 - DEPENDENCE ON RENAL DIALYSIS Assessment/Plan Pt is 27 year old female with pmhx of ESRD on HD, LUE AVF, IDDM, HTN, PVD, Cardiac arrest Patient intubated and supported by mechanical ventilator. On pressor support. HD was given yesterday. Todays clinical/ biochemical data do not warrant dialysis. Will do dialysis tomorrow if stable. Overall prognosis dismal. Discussed at length with the family. Will monitor closely. Prognosis guarded. Susie Peter MD
[2018-01-28 14:41] VITALS: BP 102/49; PULSE 87
--- NOTE | 2018-01-28 14:59 | PN ---
Progress Note, Physician History of Present Illness: continues to be intubated no sedation necessary patient poorly responsive family in the room no response according to them - Current Medication List Current Medications: Active Medications Chlorhexidine Gluconate (Hibiclens For Decolonization -) 1 applic TP HS ROSA MARIA Last Admin: 01/27/18 21:38 Dose: 1 applic Epoetin Abiel (Procrit -) 20,000 unit IVPUSH ONCE ONE Stop: 01/29/18 10:17 Heparin Sodium (Porcine) (Heparin -) 5,000 unit SQ TID ROSA MARIA Last Admin: 01/28/18 06:14 Dose: 5,000 unit Sodium Chloride (Normal Saline -) 1,000 mls @ 100 mls/hr IV ASDIR ROSA MARIA Last Admin: 01/27/18 09:32 Dose: 100 mls/hr Norepinephrine Bitartrate 8, (000 mcg/ Sodium Chloride) 1,000 mls @ 37.5 mls/ hr IV TITR ROSA MARIA; Protocol Last Titration: 01/28/18 06:17 Dose: 2 mcg/min, 15 mls/hr Piperacillin Sod/Tazobactam (Sod 2.25 gm/ Dextrose) 50 mls @ 100 mls/hr IVPB Q8H-IV ROSA MARIA; Protocol Last Admin: 01/28/18 09:46 Dose: 100 mls/hr Dextrose/Sodium Chloride (D5-1/2ns -) 1,000 mls @ 42 mls/hr IV ASDIR ROSA MARIA Last Admin: 01/28/18 09:46 Dose: 42 mls/hr Insulin Aspart (Novolog Vial Sliding Scale -) 1 vial SQ ACHS ROSA MARIA; Protocol Last Admin: 01/28/18 11:52 Dose: 4 units Mupirocin (Bactroban Ointment (For Decolonization) -) 1 applic NS BID ROSA MARIA Stop: 02/01/18 21:59 Last Admin: 01/28/18 09:46 Dose: 1 applic - Objective Vital Signs: Vital Signs Temperature 97.6 F 01/28/18 12:00 Pulse Rate 87 01/28/18 14:00 Respiratory Rate 12 01/28/18 14:34 Blood Pressure 102/49 L 01/28/18 14:00 O2 Sat by Pulse Oximetry (%) 100 01/28/18 11:01 Constitutional: Yes: Other Cardiovascular: Yes: Regular Rate and Rhythm Respiratory: Yes: Intubated, Mechanically Ventilated Gastrointestinal: Yes: Normal Bowel Sounds, Soft Musculoskeletal: Yes: Other Extremities: Yes: Other Wound/Incision: Yes: Other Neurological: Yes: Other Labs: CBC, BMP 01/28/18 05:30 01/28/18 05:30 INR, PTT INR 1.34 (0.83-1.09) H 01/27/18 09:05 Assessment/Plan S/P cardiac arrest (25 minutes to ROSC) Acute Respiratory Failure ESRD on HD TIW DKA DM HTN Anemia Previous PNA Leukocytosis plan continue abx as per icu nutrition monitor mental status cc 36 min
--- NOTE | 2018-01-28 15:23 | PN ---
Progress Note (short form) - Note Progress Note: Patient seen and examined at bedside. She was noted to be in Asystole. She had not pulses. Pupils dilated and fixed Corneal reflexes absent Doll eye reflex absent Gag reflex absent No response to painful stimuli No spontaneous breathing on auscultation. No cardiac sound son auscultation. BP unrecordable. Patient pronounced at 2:44 PM. Family present at bedside Primary team informed.
--- NOTE | 2018-01-28 18:15 | PN ---
Teaching Attending Note Name of Resident: Mike Moser ATTENDING PHYSICIAN STATEMENT I saw and evaluated the patient. I reviewed the resident's note and discussed the case with the resident. I agree with the resident's findings and plan as documented. SUBJECTIVE: Patient note OBJECTIVE: agree with the HS note.
[2018-01-29 06:11] LABS: HBSAG SCREEN Negative (Negative); HEP B CORE AB, TOT Negative (Negative)
[2018-01-29] MEDS ORDERED: EPOETIN ALFA 20,000 UNIT/1 ML VIAL IVPUSH ONE (10:16)
== END 2018-01-28 17:12 | disposition expired | DRG 208 ==
LOC: JER 05:13 → JERBED 07:42 → JICU 11:32
PROVIDERS: ADMIT Internal Medicine; ATTEND Internal Medicine
PROC: 5A1935Z Respiratory Ventilation, Less than 24 Consecutive Hours (ICD-10-PCS; principal; 2018-01-27)
PROC: 5A12012 Performance of Cardiac Output, Single, Manual (ICD-10-PCS; 2018-01-27)
PROC: 06HM33Z Insertion of Infusion Device into Right Femoral Vein, Percutaneous Approach (ICD-10-PCS; 2018-01-27)
PROC: B51BZZA Fluoroscopy of Right Lower Extremity Veins, Guidance (ICD-10-PCS; 2018-01-27)
PROC: 5A1D70Z Performance of Urinary Filtration, Intermittent, Less than 6 Hours Per Day (ICD-10-PCS; 2018-01-27)
DX: J96.00 Acute respiratory failure, unspecified whether with hypoxia or hypercapnia (principal); E10.10 Type 1 diabetes mellitus with ketoacidosis without coma; N18.6 End stage renal disease; I13.2 Hypertensive heart and chronic kidney disease with heart failure and with stage 5 chronic kidney disease, or end stage renal disease; I50.32 Chronic diastolic (congestive) heart failure; E87.1 Hypo-osmolality and hyponatremia; J96.11 Chronic respiratory failure with hypoxia; I46.9 Cardiac arrest, cause unspecified; Z99.2 Dependence on renal dialysis; E87.5 Hyperkalemia; E83.41 Hypermagnesemia; E83.39 Other disorders of phosphorus metabolism; Z79.4 Long term (current) use of insulin; R56.9 Unspecified convulsions; D63.1 Anemia in chronic kidney disease; Z86.711 Personal history of pulmonary embolism; I73.9 Peripheral vascular disease, unspecified; Z86.718 Personal history of other venous thrombosis and embolism; I95.9 Hypotension, unspecified; Z79.01 Long term (current) use of anticoagulants; R68.0 Hypothermia, not associated with low environmental temperature; Z66 Do not resuscitate
CPT/HCPCS: 36415; 36600; 71045-TC-FY; 80048; 80053; 82150; 82375; 82550; 82553; 82803; 82962; 83036; 83050; 83605; 83690; 83735; 84100; 84484; 84702; 85025; 85610; 85730; 86704; 86706; 86708; 86803; 87040; 87340; 93005; 93010; 93306-TC; 99285-25; G0480; J1644; J7030